=== PATIENT | female | born 1945 | race Caucasian/White ===

== ENCOUNTER → 2022-07-24 | Outpatient (REF) | payer MEDICARE, MEDICAID, SELFPAY ==
[2022-07-24 10:03] LABS: Absolute Lymphocyte Count 2.39 X10^3/uL (0.83-4.51); Absolute Neutrophil Count 2.3 X10^3/uL (2.0-7.7); Basophil# 0.06 X10^3/uL; Eosinophil# 0.53 X10^3/uL; Eosinophils% 9.2 % (0-5); Hematocrit 41.3 % (37-47); Hemoglobin 13.1 g/dL (12.0-15.0); Lymphocyte # 2.39 X10^3/ul (0.83-4.51); Lymphocyte % 41.6 % (19-41); Mean Corp Hgb Conc 31.7 g/dL (32-36); Mean Corpuscular Hgb 31.4 pg (27.0-32.0); Mean Platelet Vol. 11.5 fl (6.2-12.0); Monocyte# 0.48 X10^3/uL; Monocyte% 8.4 % (0-10); NRBC Flagged by Analyzer 0 % (0-5); Neutrophil # 2.25 X10^3/uL (2.7-7.7); Neutrophil % 39.3 % (47-70); Platelet Count 201 K/mm3 (150-450); RBC Distribution Width CV 14.8 % (11.6-14.6); RBC Distribution Width SD 54.2 fl (35.1-43.9); Red Blood Count 4.17 M/mm3 (4.2-5.4); White Blood Count 5.7 K/mm3 (4.4-11.0)
[2022-07-24 10:26] LABS: Anion Gap 5 (5-15); BUN 25 mg/dL (7-18); BUN/Creat Ratio 24.3 RATIO (10-20); Calcium,Total 8.5 mg/dL (8.5-10.1); Chloride 112 mmol/L (98-107); Creatinine, Serum 1.03 mg/dL (0.55-1.02); EST Glomerular Filtration Rate 55 mL/min (>60); Est Glom Filt Rate - Afr Amer 66 mL/min (>60); Glucose 77 mg/dL (74-106); Potassium 4.3 mmol/L (3.5-5.1); Sodium Level 142 mmol/L (136-145); Thyroid Stim Hormone (TSH) 2.63 uIU/mL (0.358-3.74)
== END ==
LOC: OLS.ACH 05:00
PROVIDERS: Referring Provider Family Medicine; Visit Provider Family Medicine
DX: I10 Essential (primary) hypertension (principal); E03.9 Hypothyroidism, unspecified
CPT/HCPCS: 36415; 80048; 84443; 85025

== ENCOUNTER → 2022-07-29 | Outpatient (REF) | payer MEDICARE, MEDICAID, SELFPAY ==
[2022-07-29 09:41] LABS: Valproic Acid (Depakene) Level 38 ug/mL (50-100)
== END ==
LOC: OLS.ACH 05:00
PROVIDERS: Visit Provider Family Medicine
DX: F29 Unspecified psychosis not due to a substance or known physiological condition (principal); F41.9 Anxiety disorder, unspecified; G31.09 Other frontotemporal neurocognitive disorder
CPT/HCPCS: 36415; 80164

== ENCOUNTER → 2022-08-22 | Outpatient (REF) | payer MEDICARE, MEDICAID, SELFPAY ==
[2022-08-22 10:23] LABS: ALB/GLOB Ratio 0.7 RATIO (0.9-2.4); AST(SGOT) 19 U/L (15-37); Alanine Aminotransfer ALT/SGPT 28 U/L (13-56); Albumin, Serum 3.1 g/dL (3.2-5.0); Alkaline Phosphatase 75 U/L (45-117); Anion Gap 5 (5-15); BUN 28 mg/dL (7-18); BUN/Creat Ratio 28.4 RATIO (10-20); Calcium,Total 9.1 mg/dL (8.5-10.1); Chloride 105 mmol/L (98-107); Cholesterol 189 mg/dL (200); Creatinine, Serum 0.98 mg/dL (0.55-1.02); EST Glomerular Filtration Rate 58 mL/min (>60); Est Glom Filt Rate - Afr Amer 70 mL/min (>60); Globulin 4.5 g/dL (2.2-4.2); Glucose 83 mg/dL (74-106); High Density Lipoprotein 62 mg/dL; Potassium 4.1 mmol/L (3.5-5.1); Protein, Total 7.6 g/dL (6.4-8.2); Sodium Level 140 mmol/L (136-145); Triglycerides 121 mg/dL; Very Low Density Lipoprotein 24 mg/dL (5-40)
== END ==
LOC: OLS.ACH 08:35
PROVIDERS: Visit Provider Family Medicine
DX: I10 Essential (primary) hypertension (principal); E03.9 Hypothyroidism, unspecified
CPT/HCPCS: 36415; 80053; 80061; 84443

== ENCOUNTER → 2022-08-23 | Outpatient (REF) | payer SELFPAY ==
[2022-08-23 08:56] LABS: Absolute Lymphocyte Count 2.14 X10^3/uL (0.83-4.51); Absolute Neutrophil Count 3.5 X10^3/uL (2.0-7.7); Basophil# 0.04 X10^3/uL; Basophil% 0.6 % (0-1); Eosinophil# 0.27 X10^3/uL; Eosinophils% 4.1 % (0-5); Hematocrit 37.1 % (37-47); Hemoglobin 11.7 g/dL (12.0-15.0); Lymphocyte # 2.14 X10^3/ul (0.83-4.51); Lymphocyte % 32.5 % (19-41); Mean Corp Hgb Conc 31.5 g/dL (32-36); Mean Corpuscular Hgb 30.5 pg (27.0-32.0); Mean Corpuscular Volume 96.6 fL (81-99); Mean Platelet Vol. 11.5 fl (6.2-12.0); Monocyte% 9.1 % (0-10); NRBC Flagged by Analyzer 0 % (0-5); Neutrophil # 3.51 X10^3/uL (2.7-7.7); Neutrophil % 53.2 % (47-70); Platelet Count 226 K/mm3 (150-450); RBC Distribution Width CV 14.4 % (11.6-14.6); RBC Distribution Width SD 50.7 fl (35.1-43.9); Red Blood Count 3.84 M/mm3 (4.2-5.4); White Blood Count 6.6 K/mm3 (4.4-11.0)
== END ==
LOC: OLS.ACH 05:00
PROVIDERS: Visit Provider Family Medicine
DX: I10 Essential (primary) hypertension (principal); E03.9 Hypothyroidism, unspecified

== ENCOUNTER → 2022-10-21 | Outpatient (REF) | payer MEDICARE, MEDICAID, SELFPAY ==
[2022-10-21 11:40] LABS: Valproic Acid (Depakene) Level 31 ug/mL (50-100)
== END ==
LOC: OLS.ACH 05:00
PROVIDERS: Visit Provider Internal Medicine
DX: G31.09 Other frontotemporal neurocognitive disorder (principal); F02.818 Dementia in other diseases classified elsewhere, unspecified severity, with other behavioral disturbance
CPT/HCPCS: 36415; 80164

== ENCOUNTER → 2022-11-14 | Outpatient (REF) | payer MEDICARE, MEDICAID, SELFPAY ==
[2022-11-14 09:50] LABS: Absolute Lymphocyte Count 2.82 X10^3/uL (0.83-4.51); Absolute Neutrophil Count 6.6 X10^3/uL (2.0-7.7); Basophil# 0.03 X10^3/uL; Basophil% 0.3 % (0-1); Eosinophil# 0.38 X10^3/uL; Eosinophils% 3.6 % (0-5); Hematocrit 40.9 % (37-47); Hemoglobin 12.7 g/dL (12.0-15.0); Lymphocyte # 2.82 X10^3/ul (0.83-4.51); Lymphocyte % 26.4 % (19-41); Mean Corp Hgb Conc 31.1 g/dL (32-36); Mean Corpuscular Hgb 30.9 pg (27.0-32.0); Mean Corpuscular Volume 99.5 fL (81-99); Mean Platelet Vol. 11.6 fl (6.2-12.0); Monocyte# 0.81 X10^3/uL; Monocyte% 7.6 % (0-10); NRBC Flagged by Analyzer 0 % (0-5); Neutrophil # 6.62 X10^3/uL (2.7-7.7); Neutrophil % 61.7 % (47-70); Platelet Count 209 K/mm3 (150-450); RBC Distribution Width CV 14.3 % (11.6-14.6); RBC Distribution Width SD 52.2 fl (35.1-43.9); Red Blood Count 4.11 M/mm3 (4.2-5.4); White Blood Count 10.7 K/mm3 (4.4-11.0)
[2022-11-14 10:13] LABS: ALB/GLOB Ratio 0.6 RATIO (0.9-2.4); AST(SGOT) 21 U/L (15-37); Alanine Aminotransfer ALT/SGPT 22 U/L (13-56); Albumin, Serum 2.5 g/dL (3.2-5.0); Alkaline Phosphatase 70 U/L (45-117); Anion Gap 5 (5-15); BUN 21 mg/dL (7-18); BUN/Creat Ratio 25.1 RATIO (10-20); Calcium,Total 8.5 mg/dL (8.5-10.1); Chloride 111 mmol/L (98-107); Cholesterol 179 mg/dL (200); Creatinine, Serum 0.84 mg/dL (0.55-1.02); EST Glomerular Filtration Rate 70 mL/min (>60); Est Glom Filt Rate - Afr Amer 84 mL/min (>60); Globulin 3.9 g/dL (2.2-4.2); Glucose 77 mg/dL (74-106); High Density Lipoprotein 48 mg/dL; Potassium 4.2 mmol/L (3.5-5.1); Protein, Total 6.4 g/dL (6.4-8.2); Sodium Level 145 mmol/L (136-145); Thyroid Stim Hormone (TSH) 3.57 uIU/mL (0.358-3.74); Triglycerides 124 mg/dL; Very Low Density Lipoprotein 25 mg/dL (5-40)
== END ==
LOC: OLS.ACH 05:00
PROVIDERS: Visit Provider Internal Medicine
DX: I10 Essential (primary) hypertension (principal); E03.9 Hypothyroidism, unspecified; E78.00 Pure hypercholesterolemia, unspecified
CPT/HCPCS: 36415; 80053; 80061; 84443; 85025

== ENCOUNTER → 2023-01-13 | Outpatient (REF) | payer MEDICARE, MEDICAID, SELFPAY ==
[2023-01-13 09:13] LABS: Valproic Acid (Depakene) Level 38 ug/mL (50-100)
== END ==
LOC: OLS.ACH 05:00
PROVIDERS: Visit Provider Internal Medicine
DX: F29 Unspecified psychosis not due to a substance or known physiological condition (principal); G31.09 Other frontotemporal neurocognitive disorder
CPT/HCPCS: 36415; 80164

== ENCOUNTER → 2023-02-06 | Outpatient (REF) | payer MEDICARE, MEDICAID, SELFPAY ==
[2023-02-06 08:25] LABS: Absolute Lymphocyte Count 2.99 X10^3/uL (0.83-4.51); Absolute Neutrophil Count 2.9 X10^3/uL (2.0-7.7); Basophil# 0.02 X10^3/uL; Basophil% 0.3 % (0-1); Eosinophils% 4.4 % (0-5); Hemoglobin 13.5 g/dL (12.0-15.0); Lymphocyte # 2.99 X10^3/ul (0.83-4.51); Mean Corp Hgb Conc 30.7 g/dL (32-36); Mean Corpuscular Hgb 30.7 pg (27.0-32.0); Mean Platelet Vol. 11.6 fl (6.2-12.0); Monocyte# 0.52 X10^3/uL; Monocyte% 7.6 % (0-10); NRBC Flagged by Analyzer 0 % (0-5); Neutrophil # 2.94 X10^3/uL (2.7-7.7); Neutrophil % 43.3 % (47-70); Platelet Count 204 K/mm3 (150-450); RBC Distribution Width CV 13.9 % (11.6-14.6); RBC Distribution Width SD 51.3 fl (35.1-43.9); White Blood Count 6.8 K/mm3 (4.4-11.0)
[2023-02-06 08:48] LABS: ALB/GLOB Ratio 0.6 RATIO (0.9-2.4); AST(SGOT) 15 U/L (15-37); Alanine Aminotransfer ALT/SGPT 20 U/L (13-56); Albumin, Serum 2.4 g/dL (3.2-5.0); Alkaline Phosphatase 63 U/L (45-117); Anion Gap 5 (5-15); BUN 21 mg/dL (7-18); Calcium,Total 8.2 mg/dL (8.5-10.1); Chloride 110 mmol/L (98-107); Cholesterol 196 mg/dL (200); Creatinine, Serum 0.84 mg/dL (0.55-1.02); EST Glomerular Filtration Rate 69 mL/min (>60); Est Glom Filt Rate - Afr Amer 84 mL/min (>60); Globulin 3.8 g/dL (2.2-4.2); Glucose 90 mg/dL (74-106); High Density Lipoprotein 51 mg/dL; Potassium 4.4 mmol/L (3.5-5.1); Protein, Total 6.2 g/dL (6.4-8.2); Sodium Level 143 mmol/L (136-145); Thyroid Stim Hormone (TSH) 2.21 uIU/mL (0.358-3.74); Triglycerides 157 mg/dL; Very Low Density Lipoprotein 31 mg/dL (5-40)
== END ==
LOC: OLS.ACH 05:00
PROVIDERS: Visit Provider Internal Medicine
DX: I10 Essential (primary) hypertension (principal); E03.9 Hypothyroidism, unspecified; E78.00 Pure hypercholesterolemia, unspecified
CPT/HCPCS: 36415; 80053; 80061; 84443; 85025

== ENCOUNTER → 2023-04-07 | Outpatient (REF) | payer MEDICARE, MEDICAID, SELFPAY ==
[2023-04-07 09:32] LABS: Valproic Acid (Depakene) Level 29 ug/mL (50-100)
== END ==
LOC: OLS.ACH 05:00
PROVIDERS: Visit Provider Internal Medicine
DX: F29 Unspecified psychosis not due to a substance or known physiological condition (principal)
CPT/HCPCS: 36415; 80164

== ENCOUNTER → 2023-05-01 | Outpatient (REF) | payer MEDICARE, MEDICAID, SELFPAY ==
[2023-05-01 09:36] LABS: Absolute Lymphocyte Count 3.15 X10^3/uL (0.83-4.51); Absolute Neutrophil Count 3.1 X10^3/uL (2.0-7.7); Basophil# 0.04 X10^3/uL; Basophil% 0.6 % (0-1); Eosinophil# 0.26 X10^3/uL; Eosinophils% 3.6 % (0-5); Hematocrit 48.3 % (37-47); Hemoglobin 15.1 g/dL (12.0-15.0); Lymphocyte # 3.15 X10^3/ul (0.83-4.51); Lymphocyte % 43.3 % (19-41); Mean Corp Hgb Conc 31.3 g/dL (32-36); Mean Corpuscular Hgb 31.3 pg (27.0-32.0); Mean Corpuscular Volume 100.2 fL (81-99); Mean Platelet Vol. 12.2 fl (6.2-12.0); Monocyte# 0.69 X10^3/uL; Monocyte% 9.5 % (0-10); NRBC Flagged by Analyzer 0 % (0-5); Neutrophil # 3.08 X10^3/uL (2.7-7.7); Neutrophil % 42.3 % (47-70); Platelet Count 181 K/mm3 (150-450); RBC Distribution Width CV 13.4 % (11.6-14.6); RBC Distribution Width SD 50.1 fl (35.1-43.9); Red Blood Count 4.82 M/mm3 (4.2-5.4); White Blood Count 7.3 K/mm3 (4.4-11.0)
[2023-05-01 09:58] LABS: ALB/GLOB Ratio 0.7 RATIO (0.9-2.4); AST(SGOT) 21 U/L (15-37); Alanine Aminotransfer ALT/SGPT 27 U/L (13-56); Albumin, Serum 2.9 g/dL (3.2-5.0); Alkaline Phosphatase 71 U/L (45-117); Anion Gap 5 (5-15); BUN 33 mg/dL (7-18); BUN/Creat Ratio 29.5 RATIO (10-20); Chloride 108 mmol/L (98-107); Cholesterol 205 mg/dL (200); Creatinine, Serum 1.12 mg/dL (0.55-1.02); EST Glomerular Filtration Rate 50 mL/min (>60); Est Glom Filt Rate - Afr Amer 60 mL/min (>60); Globulin 4.3 g/dL (2.2-4.2); Glucose 90 mg/dL (74-106); High Density Lipoprotein 53 mg/dL; Potassium 4.5 mmol/L (3.5-5.1); Protein, Total 7.2 g/dL (6.4-8.2); Sodium Level 142 mmol/L (136-145); Thyroid Stim Hormone (TSH) 2.38 uIU/mL (0.358-3.74); Triglycerides 160 mg/dL; Very Low Density Lipoprotein 32 mg/dL (5-40)
== END ==
LOC: OLS.ACH 04:00
PROVIDERS: Referring Provider Internal Medicine; Visit Provider Internal Medicine
DX: I10 Essential (primary) hypertension (principal); E03.9 Hypothyroidism, unspecified; E78.00 Pure hypercholesterolemia, unspecified
CPT/HCPCS: 36415; 80053; 80061; 84443; 85025

== ENCOUNTER → 2023-06-30 | Outpatient (REF) | payer MEDICARE, MEDICAID, SELFPAY ==
[2023-06-30 09:57] LABS: Valproic Acid (Depakene) Level 33 ug/mL (50-100)
== END ==
LOC: OLS.ACH 04:00
PROVIDERS: Referring Provider Internal Medicine; Visit Provider Internal Medicine
DX: F29 Unspecified psychosis not due to a substance or known physiological condition (principal); Z79.899 Other long term (current) drug therapy
CPT/HCPCS: 36415; 80164

== ENCOUNTER → 2023-07-24 | Outpatient (REF) | payer MEDICARE, MEDICAID, SELFPAY ==
[2023-07-24 09:51] LABS: Absolute Lymphocyte Count 3.02 X10^3/uL (0.83-4.51); Absolute Neutrophil Count 3.1 X10^3/uL (2.0-7.7); Basophil# 0.04 X10^3/uL; Basophil% 0.6 % (0-1); Eosinophils% 4.2 % (0-5); Hematocrit 47.3 % (37-47); Hemoglobin 14.8 g/dL (12.0-15.0); Lymphocyte # 3.02 X10^3/ul (0.83-4.51); Lymphocyte % 42.6 % (19-41); Mean Corp Hgb Conc 31.3 g/dL (32-36); Mean Corpuscular Hgb 31.4 pg (27.0-32.0); Mean Corpuscular Volume 100.2 fL (81-99); Monocyte% 8.5 % (0-10); NRBC Flagged by Analyzer 0 % (0-5); Neutrophil % 43.7 % (47-70); Platelet Count 191 K/mm3 (150-450); RBC Distribution Width CV 13.7 % (11.6-14.6); RBC Distribution Width SD 50.6 fl (35.1-43.9); Red Blood Count 4.72 M/mm3 (4.2-5.4); White Blood Count 7.1 K/mm3 (4.4-11.0)
[2023-07-24 10:11] LABS: ALB/GLOB Ratio 0.6 RATIO (0.9-2.4); AST(SGOT) 19 U/L (15-37); Alanine Aminotransfer ALT/SGPT 18 U/L (13-56); Albumin, Serum 2.5 g/dL (3.2-5.0); Alkaline Phosphatase 57 U/L (45-117); Anion Gap 2 (5-15); BUN 28 mg/dL (7-18); BUN/Creat Ratio 32.6 RATIO (10-20); Calcium,Total 8.3 mg/dL (8.5-10.1); Chloride 110 mmol/L (98-107); Cholesterol 189 mg/dL (200); Creatinine, Serum 0.86 mg/dL (0.55-1.02); EST Glomerular Filtration Rate 67 mL/min (>60); Est Glom Filt Rate - Afr Amer 82 mL/min (>60); Globulin 3.9 g/dL (2.2-4.2); Glucose 85 mg/dL (74-106); High Density Lipoprotein 45 mg/dL; Potassium 4.2 mmol/L (3.5-5.1); Protein, Total 6.4 g/dL (6.4-8.2); Sodium Level 141 mmol/L (136-145); Thyroid Stim Hormone (TSH) 1.79 uIU/mL (0.358-3.74); Triglycerides 137 mg/dL; Very Low Density Lipoprotein 27 mg/dL (5-40)
== END ==
LOC: OLS.ACH 05:00
PROVIDERS: Visit Provider Internal Medicine
DX: I10 Essential (primary) hypertension (principal); E03.9 Hypothyroidism, unspecified; E78.00 Pure hypercholesterolemia, unspecified
CPT/HCPCS: 36415; 80053; 80061; 84443; 85025

== ENCOUNTER → 2023-09-01 | Outpatient (REF) | payer MEDICARE, MEDICAID, SELFPAY ==
[2023-09-01 08:35] LABS: Absolute Lymphocyte Count 4.12 X10^3/uL (0.83-4.51); Absolute Neutrophil Count 4.2 X10^3/uL (2.0-7.7); Basophil# 0.08 X10^3/uL; Basophil% 0.8 % (0-1); Eosinophil# 0.47 X10^3/uL; Eosinophils% 4.8 % (0-5); Hematocrit 50.4 % (37-47); Lymphocyte # 4.12 X10^3/ul (0.83-4.51); Lymphocyte % 42.4 % (19-41); Mean Corp Hgb Conc 31.7 g/dL (32-36); Mean Corpuscular Volume 100.8 fL (81-99); Mean Platelet Vol. 11.9 fl (6.2-12.0); Monocyte# 0.77 X10^3/uL; Monocyte% 7.9 % (0-10); NRBC Flagged by Analyzer 0 % (0-5); Neutrophil # 4.22 X10^3/uL (2.7-7.7); Neutrophil % 43.6 % (47-70); Platelet Count 221 K/mm3 (150-450); RBC Distribution Width SD 52.3 fl (35.1-43.9); White Blood Count 9.7 K/mm3 (4.4-11.0)
[2023-09-01 09:22] LABS: ALB/GLOB Ratio 0.7 RATIO (0.9-2.4); AST(SGOT) 24 U/L (15-37); Alanine Aminotransfer ALT/SGPT 21 U/L (13-56); Albumin, Serum 2.7 g/dL (3.2-5.0); Alkaline Phosphatase 67 U/L (45-117); Anion Gap 6 (5-15); BUN 29 mg/dL (7-18); BUN/Creat Ratio 30.2 RATIO (10-20); Calcium,Total 8.3 mg/dL (8.5-10.1); Chloride 110 mmol/L (98-107); Creatinine, Serum 0.96 mg/dL (0.55-1.02); EST Glomerular Filtration Rate 59 mL/min (>60); Est Glom Filt Rate - Afr Amer 72 mL/min (>60); Glucose 79 mg/dL (74-106); Potassium 4.1 mmol/L (3.5-5.1); Protein, Total 6.7 g/dL (6.4-8.2); Sodium Level 142 mmol/L (136-145)
== END ==
LOC: OLS.ACH 04:00
PROVIDERS: Visit Provider Internal Medicine
DX: R41.82 Altered mental status, unspecified (principal)
CPT/HCPCS: 36415; 80053; 85025

== ENCOUNTER → 2023-09-29 | Outpatient (REF) | payer MEDICARE, MEDICAID, SELFPAY ==
[2023-09-29 10:25] LABS: Vitamin D,25 Hydroxy 86.5 ng/mL
[2023-09-29 10:49] LABS: Valproic Acid (Depakene) Level 27 ug/mL (50-100)
== END ==
LOC: OLS.ACH 05:00
PROVIDERS: Visit Provider Internal Medicine
DX: E55.9 Vitamin D deficiency, unspecified (principal); F29 Unspecified psychosis not due to a substance or known physiological condition
CPT/HCPCS: 36415; 80164; 82306

== ENCOUNTER → 2023-10-16 | Outpatient (REF) | payer MEDICARE, MEDICAID, SELFPAY ==
[2023-10-16 08:55] LABS: Absolute Neutrophil Count 7.2 X10^3/uL (2.0-7.7); Basophil# 0.06 X10^3/uL; Basophil% 0.6 % (0-1); Eosinophil# 0.31 X10^3/uL; Eosinophils% 2.9 % (0-5); Hematocrit 47.5 % (37-47); Hemoglobin 15.1 g/dL (12.0-15.0); Lymphocyte % 22.2 % (19-41); Mean Corp Hgb Conc 31.8 g/dL (32-36); Mean Corpuscular Hgb 31.7 pg (27.0-32.0); Mean Corpuscular Volume 99.6 fL (81-99); Mean Platelet Vol. 11.8 fl (6.2-12.0); Monocyte% 7.4 % (0-10); NRBC Flagged by Analyzer 0 % (0-5); Neutrophil % 66.6 % (47-70); Platelet Count 185 K/mm3 (150-450); RBC Distribution Width CV 13.4 % (11.6-14.6); RBC Distribution Width SD 49.4 fl (35.1-43.9); Red Blood Count 4.77 M/mm3 (4.2-5.4); White Blood Count 10.8 K/mm3 (4.4-11.0)
[2023-10-16 09:28] LABS: ALB/GLOB Ratio 0.7 RATIO (0.9-2.4); AST(SGOT) 15 U/L (15-37); Alanine Aminotransfer ALT/SGPT 20 U/L (13-56); Albumin, Serum 2.7 g/dL (3.2-5.0); Alkaline Phosphatase 67 U/L (45-117); Anion Gap 2 (5-15); BUN 23 mg/dL (7-18); BUN/Creat Ratio 27.9 RATIO (10-20); Calcium,Total 8.9 mg/dL (8.5-10.1); Chloride 109 mmol/L (98-107); Cholesterol 204 mg/dL (200); Creatinine, Serum 0.82 mg/dL (0.55-1.02); EST Glomerular Filtration Rate 71 mL/min (>60); Est Glom Filt Rate - Afr Amer 86 mL/min (>60); Globulin 3.7 g/dL (2.2-4.2); Glucose 84 mg/dL (74-106); High Density Lipoprotein 48 mg/dL; Potassium 3.9 mmol/L (3.5-5.1); Protein, Total 6.4 g/dL (6.4-8.2); Sodium Level 140 mmol/L (136-145); Thyroid Stim Hormone (TSH) 2.62 uIU/mL (0.358-3.74); Triglycerides 144 mg/dL; Very Low Density Lipoprotein 29 mg/dL (5-40)
== END ==
LOC: OLS.ACH 05:00
PROVIDERS: Visit Provider Internal Medicine
DX: I10 Essential (primary) hypertension (principal); E03.9 Hypothyroidism, unspecified; E78.00 Pure hypercholesterolemia, unspecified
CPT/HCPCS: 36415; 80053; 80061; 84443; 85025

== ENCOUNTER → 2023-12-22 | Outpatient (REF) | payer MEDICARE, MEDICAID, SELFPAY ==
[2023-12-22 09:51] LABS: Valproic Acid (Depakene) Level 18 ug/mL (50-100)
[2023-12-22 09:55] LABS: Vitamin D,25 Hydroxy 78.4 ng/mL
== END ==
LOC: OLS.ACH 05:00
PROVIDERS: Visit Provider Internal Medicine
DX: F29 Unspecified psychosis not due to a substance or known physiological condition (principal); E55.9 Vitamin D deficiency, unspecified
CPT/HCPCS: 36415; 80164; 82306

== ENCOUNTER → 2024-01-08 | Outpatient (REF) | payer MEDICARE, MEDICAID, SELFPAY ==
[2024-01-08 08:52] LABS: Absolute Lymphocyte Count 2.86 X10^3/uL (0.83-4.51); Absolute Neutrophil Count 3.3 X10^3/uL (2.0-7.7); Basophil# 0.05 X10^3/uL; Basophil% 0.7 % (0-1); Eosinophil# 0.22 X10^3/uL; Eosinophils% 3.1 % (0-5); Hematocrit 41.7 % (37-47); Hemoglobin 13.5 g/dL (12.0-15.0); Lymphocyte # 2.86 X10^3/ul (0.83-4.51); Lymphocyte % 40.7 % (19-41); Mean Corp Hgb Conc 32.4 g/dL (32-36); Mean Corpuscular Hgb 32.1 pg (27.0-32.0); Mean Platelet Vol. 11.9 fl (6.2-12.0); Monocyte# 0.55 X10^3/uL; Monocyte% 7.8 % (0-10); NRBC Flagged by Analyzer 0 % (0-5); Neutrophil # 3.32 X10^3/uL (2.7-7.7); Neutrophil % 47.3 % (47-70); Platelet Count 199 K/mm3 (150-450); RBC Distribution Width CV 13.6 % (11.6-14.6); RBC Distribution Width SD 49.7 fl (35.1-43.9); Red Blood Count 4.21 M/mm3 (4.2-5.4)
[2024-01-08 09:19] LABS: ALB/GLOB Ratio 0.7 RATIO (0.9-2.4); AST(SGOT) 16 U/L (15-37); Alanine Aminotransfer ALT/SGPT 18 U/L (13-56); Albumin, Serum 2.4 g/dL (3.2-5.0); Alkaline Phosphatase 62 U/L (45-117); Anion Gap 3 (5-15); BUN 22 mg/dL (7-18); BUN/Creat Ratio 29.8 RATIO (10-20); Calcium,Total 8.4 mg/dL (8.5-10.1); Chloride 112 mmol/L (98-107); Cholesterol 176 mg/dL (200); Creatinine, Serum 0.74 mg/dL (0.55-1.02); EST Glomerular Filtration Rate 80 mL/min (>60); Est Glom Filt Rate - Afr Amer 97 mL/min (>60); Globulin 3.4 g/dL (2.2-4.2); Glucose 85 mg/dL (74-106); High Density Lipoprotein 44 mg/dL; Potassium 3.9 mmol/L (3.5-5.1); Protein, Total 5.8 g/dL (6.4-8.2); Sodium Level 144 mmol/L (136-145); Thyroid Stim Hormone (TSH) 1.86 uIU/mL (0.358-3.74); Triglycerides 137 mg/dL; Very Low Density Lipoprotein 27 mg/dL (5-40)
== END ==
LOC: OLS.ACH 05:00
PROVIDERS: Visit Provider Internal Medicine
DX: I10 Essential (primary) hypertension (principal); E03.9 Hypothyroidism, unspecified; E78.00 Pure hypercholesterolemia, unspecified
CPT/HCPCS: 36415; 80053; 80061; 84443; 85025

== ENCOUNTER → 2024-03-15 05:00 | Outpatient (REF) | payer MEDICARE, MEDICAID, SELFPAY ==
[2024-03-15 08:49] LABS: Vitamin D,25 Hydroxy 68.7 ng/mL
[2024-03-15 08:54] LABS: Valproic Acid (Depakene) Level 22 ug/mL (50-100)
== END ==
LOC: OLS.ACH 05:00
PROVIDERS: Visit Provider Internal Medicine
DX: E55.9 Vitamin D deficiency, unspecified (principal); F29 Unspecified psychosis not due to a substance or known physiological condition
CPT/HCPCS: 36415; 80164; 82306

== ENCOUNTER → 2024-04-01 05:00 | Outpatient (REF) | payer MEDICARE, MEDICAID, SELFPAY ==
[2024-04-01 08:27] LABS: Absolute Lymphocyte Count 3.01 X10^3/uL (0.83-4.51); Absolute Neutrophil Count 3.6 X10^3/uL (2.0-7.7); Basophil# 0.06 X10^3/uL; Basophil% 0.8 % (0-1); Eosinophil# 0.36 X10^3/uL; Eosinophils% 4.7 % (0-5); Hematocrit 45.8 % (37-47); Hemoglobin 14.7 g/dL (12.0-15.0); Lymphocyte # 3.01 X10^3/ul (0.83-4.51); Lymphocyte % 39.2 % (19-41); Mean Corp Hgb Conc 32.1 g/dL (32-36); Mean Corpuscular Hgb 31.4 pg (27.0-32.0); Mean Corpuscular Volume 97.9 fL (81-99); Mean Platelet Vol. 11.7 fl (6.2-12.0); Monocyte# 0.65 X10^3/uL; Monocyte% 8.5 % (0-10); NRBC Flagged by Analyzer 0 % (0-5); Neutrophil # 3.55 X10^3/uL (2.7-7.7); Neutrophil % 46.3 % (47-70); Platelet Count 200 K/mm3 (150-450); RBC Distribution Width CV 13.4 % (11.6-14.6); RBC Distribution Width SD 48.6 fl (35.1-43.9); Red Blood Count 4.68 M/mm3 (4.2-5.4); White Blood Count 7.7 K/mm3 (4.4-11.0)
[2024-04-01 08:51] LABS: ALB/GLOB Ratio 0.7 RATIO (0.9-2.4); AST(SGOT) 22 U/L (15-37); Alanine Aminotransfer ALT/SGPT 24 U/L (13-56); Albumin, Serum 2.6 g/dL (3.2-5.0); Alkaline Phosphatase 75 U/L (45-117); Anion Gap 4 (5-15); BUN 25 mg/dL (7-18); Calcium,Total 8.6 mg/dL (8.5-10.1); Chloride 109 mmol/L (98-107); Cholesterol 205 mg/dL (200); Creatinine, Serum 0.86 mg/dL (0.55-1.02); EST Glomerular Filtration Rate 67 mL/min (>60); Est Glom Filt Rate - Afr Amer 81 mL/min (>60); Globulin 3.8 g/dL (2.2-4.2); Glucose 82 mg/dL (74-106); High Density Lipoprotein 45 mg/dL; Potassium 4.1 mmol/L (3.5-5.1); Protein, Total 6.4 g/dL (6.4-8.2); Sodium Level 142 mmol/L (136-145); Thyroid Stim Hormone (TSH) 2.08 uIU/mL (0.358-3.74); Triglycerides 183 mg/dL; Very Low Density Lipoprotein 37 mg/dL (5-40)
== END ==
LOC: OLS.ACH 05:00
PROVIDERS: Visit Provider Internal Medicine
DX: I10 Essential (primary) hypertension (principal); E03.9 Hypothyroidism, unspecified; E78.00 Pure hypercholesterolemia, unspecified
CPT/HCPCS: 36415; 80053; 80061; 84443; 85025

== ENCOUNTER → 2024-06-07 | Outpatient (REF) | payer MEDICARE, MEDICAID, SELFPAY ==
[2024-06-07 09:13] LABS: Vitamin D,25 Hydroxy 65.6 ng/mL
[2024-06-07 09:17] LABS: Valproic Acid (Depakene) Level 16 ug/mL (50-100)
== END ==
LOC: OLS.ACH 05:00
PROVIDERS: Visit Provider Internal Medicine
DX: F29 Unspecified psychosis not due to a substance or known physiological condition (principal); E55.9 Vitamin D deficiency, unspecified
CPT/HCPCS: 36415; 80164; 82306

== ENCOUNTER → 2024-06-24 | Outpatient (REF) | payer SELFPAY | LOC: OLS.ACH 05:00 | PROVIDERS: Visit Provider Internal Medicine | DX: I10 Essential (primary) hypertension (principal); E03.9 Hypothyroidism, unspecified; E78.00 Pure hypercholesterolemia, unspecified ==

== ENCOUNTER → 2024-06-25 | Outpatient (REF) | payer MEDICARE, MEDICAID, SELFPAY ==
[2024-06-25 08:53] LABS: Absolute Lymphocyte Count 3.04 X10^3/uL (0.83-4.51); Basophil# 0.04 X10^3/uL; Basophil% 0.6 % (0-1); Eosinophil# 0.31 X10^3/uL; Eosinophils% 4.4 % (0-5); Hematocrit 44.5 % (37-47); Lymphocyte # 3.04 X10^3/ul (0.83-4.51); Lymphocyte % 43.3 % (19-41); Mean Corp Hgb Conc 31.5 g/dL (32-36); Mean Corpuscular Hgb 31.5 pg (27.0-32.0); Mean Platelet Vol. 11.5 fl (6.2-12.0); Monocyte# 0.58 X10^3/uL; Monocyte% 8.3 % (0-10); NRBC Flagged by Analyzer 0 % (0-5); Neutrophil # 3.03 X10^3/uL (2.7-7.7); Neutrophil % 43.1 % (47-70); Platelet Count 203 K/mm3 (150-450); RBC Distribution Width CV 13.1 % (11.6-14.6); RBC Distribution Width SD 48.5 fl (35.1-43.9); Red Blood Count 4.45 M/mm3 (4.2-5.4)
[2024-06-25 09:16] LABS: ALB/GLOB Ratio 0.7 RATIO (0.9-2.4); AST(SGOT) 17 U/L (15-37); Alanine Aminotransfer ALT/SGPT 17 U/L (13-56); Albumin, Serum 2.7 g/dL (3.2-5.0); Alkaline Phosphatase 73 U/L (45-117); Anion Gap 4 (5-15); BUN 16 mg/dL (7-18); BUN/Creat Ratio 21.4 RATIO (10-20); Calcium,Total 8.8 mg/dL (8.5-10.1); Chloride 109 mmol/L (98-107); Cholesterol 192 mg/dL (200); Creatinine, Serum 0.75 mg/dL (0.55-1.02); EST Glomerular Filtration Rate 79 mL/min (>60); Est Glom Filt Rate - Afr Amer 96 mL/min (>60); Globulin 3.7 g/dL (2.2-4.2); Glucose 82 mg/dL (74-106); High Density Lipoprotein 47 mg/dL; Protein, Total 6.4 g/dL (6.4-8.2); Sodium Level 143 mmol/L (136-145); Triglycerides 188 mg/dL; Very Low Density Lipoprotein 38 mg/dL (5-40)
== END ==
LOC: OLS.ACH 05:00
PROVIDERS: Visit Provider Internal Medicine
DX: I10 Essential (primary) hypertension (principal); E03.9 Hypothyroidism, unspecified; E78.00 Pure hypercholesterolemia, unspecified
CPT/HCPCS: 36415; 80053; 80061; 84443; 85025

== ENCOUNTER → 2024-08-09 | Outpatient (REF) | payer MEDICARE, MEDICAID, SELFPAY | LOC: OLS.ACH 05:00 | PROVIDERS: Visit Provider Internal Medicine | DX: E03.9 Hypothyroidism, unspecified (principal) | CPT/HCPCS: 36415; 84443 ==

== ENCOUNTER → 2024-08-30 | Outpatient (REF) | payer MEDICARE, MEDICAID, SELFPAY ==
[2024-08-30 09:11] LABS: Valproic Acid (Depakene) Level 26 ug/mL (50-100); Vitamin D,25 Hydroxy 69.9 ng/mL
== END ==
LOC: OLS.ACH 05:00
PROVIDERS: Visit Provider Internal Medicine
DX: F29 Unspecified psychosis not due to a substance or known physiological condition (principal); E55.9 Vitamin D deficiency, unspecified
CPT/HCPCS: 36415; 80164; 82306

== ENCOUNTER → 2024-09-16 04:00 | Outpatient (REF) | payer MEDICARE, MEDICAID, SELFPAY ==
[2024-09-16 09:10] LABS: Absolute Lymphocyte Count 3.46 X10^3/uL (0.83-4.51); Absolute Neutrophil Count 3.3 X10^3/uL (2.0-7.7); Basophil# 0.08 X10^3/uL; Eosinophil# 0.36 X10^3/uL; Eosinophils% 4.6 % (0-5); Hematocrit 46.4 % (37-47); Lymphocyte # 3.46 X10^3/ul (0.83-4.51); Lymphocyte % 44.1 % (19-41); Mean Corp Hgb Conc 32.3 g/dL (32-36); Mean Corpuscular Hgb 32.1 pg (27.0-32.0); Mean Corpuscular Volume 99.1 fL (81-99); Mean Platelet Vol. 11.6 fl (6.2-12.0); Monocyte% 7.7 % (0-10); NRBC Flagged by Analyzer 0 % (0-5); Neutrophil # 3.31 X10^3/uL (2.7-7.7); Neutrophil % 42.2 % (47-70); Platelet Count 209 K/mm3 (150-450); RBC Distribution Width CV 13.3 % (11.6-14.6); RBC Distribution Width SD 48.9 fl (35.1-43.9); Red Blood Count 4.68 M/mm3 (4.2-5.4); White Blood Count 7.8 K/mm3 (4.4-11.0)
[2024-09-16 10:35] LABS: ALB/GLOB Ratio 0.7 RATIO (0.9-2.4); AST(SGOT) 17 U/L (15-37); Alanine Aminotransfer ALT/SGPT 21 U/L (13-56); Albumin, Serum 2.8 g/dL (3.2-5.0); Alkaline Phosphatase 69 U/L (45-117); Anion Gap 2 (5-15); BUN 32 mg/dL (7-18); BUN/Creat Ratio 30.8 RATIO (10-20); Calcium,Total 8.7 mg/dL (8.5-10.1); Chloride 109 mmol/L (98-107); Cholesterol 190 mg/dL (200); Creatinine, Serum 1.04 mg/dL (0.55-1.02); EST Glomerular Filtration Rate 54 mL/min (>60); Est Glom Filt Rate - Afr Amer 65 mL/min (>60); Glucose 89 mg/dL (74-106); High Density Lipoprotein 52 mg/dL; Potassium 4.4 mmol/L (3.5-5.1); Protein, Total 6.8 g/dL (6.4-8.2); Sodium Level 142 mmol/L (136-145); Triglycerides 125 mg/dL; Very Low Density Lipoprotein 25 mg/dL (5-40)
== END ==
LOC: OLS.ACH 04:00
PROVIDERS: Referring Provider Internal Medicine; Visit Provider Internal Medicine
DX: I10 Essential (primary) hypertension (principal); E03.9 Hypothyroidism, unspecified; E78.00 Pure hypercholesterolemia, unspecified
CPT/HCPCS: 36415; 80053; 80061; 84443; 85025

== ENCOUNTER → 2024-11-10 05:00 | Outpatient (REF) | payer MEDICARE, MEDICAID, SELFPAY ==
[2024-11-10 09:06] LABS: Hematocrit 41.3 % (37-47); Hemoglobin 12.5 g/dL (12.0-15.0); Mean Corp Hgb Conc 30.3 g/dL (32-36); Mean Corpuscular Hgb 30.9 pg (27.0-32.0); Platelet Count 351 K/mm3 (150-450); RBC Distribution Width CV 14.4 % (11.6-14.6); RBC Distribution Width SD 53.7 fl (35.1-43.9); Red Blood Count 4.05 M/mm3 (4.2-5.4); White Blood Count 8.5 K/mm3 (4.4-11.0)
[2024-11-10 09:35] LABS: Anion Gap 2 (5-15); BUN 22 mg/dL (7-18); Calcium,Total 8.7 mg/dL (8.5-10.1); Chloride 118 mmol/L (98-107); Creatinine, Serum 0.81 mg/dL (0.55-1.02); EST Glomerular Filtration Rate 72 mL/min (>60); Est Glom Filt Rate - Afr Amer 87 mL/min (>60); Glucose 96 mg/dL (74-106); Potassium 3.9 mmol/L (3.5-5.1); Sodium Level 151 mmol/L (136-145)
== END ==
LOC: OLS.ACH 05:00
PROVIDERS: Visit Provider Internal Medicine
DX: I10 Essential (primary) hypertension (principal)
CPT/HCPCS: 36415; 80048; 85027

== ENCOUNTER → 2024-11-17 | Outpatient (REF) | payer MEDICARE, SELFPAY ==
[2024-11-17 09:31] LABS: Anion Gap 9 (5-15); BUN 21 mg/dL (4-19); Calcium 8.4 mg/dL (7.6-11.0); Carbon Dioxide 25.7 mmol/L (22.0-29.0); Chloride 107 mmol/L (96-108); Creatinine, Serum 0.8 mg/dL (0.6-1.0); EST Glomerular Filtration Rate 78 (>60); Glucose 83 mg/dL (70-99); Potassium 4.5 mmol/L (3.3-5.1); Sodium Level 141 mmol/L (133-145)
== END ==
LOC: OLS.ACH 05:00
PROVIDERS: Visit Provider Internal Medicine
DX: J11.1 Influenza due to unidentified influenza virus with other respiratory manifestations (principal)
CPT/HCPCS: 36415; 80048

== ENCOUNTER → 2024-11-22 | Outpatient (REF) | payer MEDICARE, SELFPAY ==
[2024-11-22 10:05] LABS: Vitamin D,25 Hydroxy 45.2 ng/mL (30-100)
[2024-11-22 11:46] LABS: Valproic Acid (Depakene) Level 20 ug/mL (50-100)
== END ==
LOC: OLS.ACH 05:00
PROVIDERS: Visit Provider Internal Medicine
DX: E55.9 Vitamin D deficiency, unspecified (principal); F29 Unspecified psychosis not due to a substance or known physiological condition
CPT/HCPCS: 36415; 80164; 82306

== ENCOUNTER → 2024-12-09 | Outpatient (REF) | payer MEDICARE, SELFPAY ==
[2024-12-09 09:17] LABS: Absolute Lymphocyte Count 3.12 X10^3/uL (0.83-4.51); Absolute Neutrophil Count 3.7 X10^3/uL (2.0-7.7); Basophil# 0.07 X10^3/uL; Basophil% 0.9 % (0-1); Eosinophil# 0.32 X10^3/uL; Eosinophils% 4.1 % (0-5); Hematocrit 40.3 % (37-47); Hemoglobin 13.1 g/dL (12.0-15.0); Lymphocyte # 3.12 X10^3/ul (0.83-4.51); Lymphocyte % 39.9 % (19-41); Mean Corp Hgb Conc 32.5 g/dL (32-36); Mean Corpuscular Hgb 32.1 pg (27.0-32.0); Mean Corpuscular Volume 98.8 fL (81-99); Mean Platelet Vol. 11.4 fl (6.2-12.0); Monocyte# 0.55 X10^3/uL; NRBC Flagged by Analyzer 0 % (0-5); Neutrophil # 3.73 X10^3/uL (2.7-7.7); Neutrophil % 47.7 % (47-70); Platelet Count 160 K/mm3 (150-450); RBC Distribution Width CV 14.9 % (11.6-14.6); RBC Distribution Width SD 54.3 fl (35.1-43.9); Red Blood Count 4.08 M/mm3 (4.2-5.4); White Blood Count 7.8 K/mm3 (4.4-11.0)
[2024-12-09 09:46] LABS: ALB/GLOB Ratio 1.1 RATIO (0.9-2.4); AST(SGOT) 17 U/L (<=31); Alanine Aminotransfer ALT/SGPT 11 U/L (<=34); Albumin, Serum 3.3 g/dL (3.4-4.8); Alkaline Phosphatase 62 U/L (35-104); Anion Gap 8 (5-15); BUN 16 mg/dL (4-19); BUN/Creat Ratio 21.6 RATIO (10-20); Calcium,Total 8.9 mg/dL (7.6-11.0); Carbon Dioxide 28.8 mmol/L (21.0-32.0); Chloride 106 mmol/L (98-108); Creatinine, Serum 0.73 mg/dL (0.70-1.20); EST Glomerular Filtration Rate 82 (>60); Glucose 85 mg/dL (70-99); Potassium 4.4 mmol/L (3.3-5.1); Protein, Total 6.3 g/dL (5.9-8.4); Sodium Level 142 mmol/L (133-145); Total Bilirubin 0.48 mg/dL (0.00-1.30)
[2024-12-09 10:33] LABS: Cholesterol 203 mg/dL (<=200); High Density Lipoprotein 47 mg/dL; Low Density Lipoprotein Calc. 120 mg/dL; Triglycerides 180 mg/dL; Very Low Density Lipoprotein 36 mg/dL (5-40); cholesterol:hdl ratio screen 4.34
== END ==
LOC: OLS.ACH 04:00
PROVIDERS: Referring Provider Internal Medicine; Visit Provider Internal Medicine
DX: I10 Essential (primary) hypertension (principal); E03.9 Hypothyroidism, unspecified; E78.00 Pure hypercholesterolemia, unspecified
CPT/HCPCS: 36415; 80053; 80061; 84443; 85025

== ENCOUNTER → 2025-02-16 05:00 | Outpatient (REF) | payer MEDICARE, SELFPAY ==
[2025-02-16 10:23] LABS: Valproic Acid (Depakene) Level 27 ug/mL (50-100)
[2025-02-16 12:53] LABS: Vitamin D,25 Hydroxy 36.9 ng/mL (30-100)
== END ==
LOC: OLS.ACH 05:00
PROVIDERS: Visit Provider Internal Medicine
DX: F29 Unspecified psychosis not due to a substance or known physiological condition (principal)
CPT/HCPCS: 36415; 80164; 82306

== ENCOUNTER → 2025-03-03 05:00 | Outpatient (REF) | payer MEDICARE, SELFPAY ==
--- OUTSIDE RECORDS SUMMARY | 2025-03-03 04:23 | XMS RPT_ITS | CCD ---
Author Organization [facility] Care Team Providers Care Chemical Dependency Therapist Name Role Phone Barbaar, Scott Unavailable Unavailable Isbell, Keena Unavailable Unavailable Unknown, Referring Provider Unavailable Unav ailable Cynthia Uribe Unavailable Unavailable Cynthia Uribe Primary Care Provider Cynthia Uribe Primary Care Provider [phone] Jojo MARIANO, Cynthia Primary Care Provider Unknown, Referring Provider Unavailable Unav ailable Unavailable Unavailable Jojo MARIANO, Cynthia Primary Care Provider Jojo MARIANO, Cynthia Primary Care Provider [phone] CYNTHIA URIBE Primary Care Unavailable JOHN PENNY Admitting Unavailable JOHN PENNY Attending Unavailable CYNTHIA URIBE Primary Care Unavailable BEBA BRAY Unavailable Jim MARIANO, Saurabh Attending Provider Unavailable Jim MARIANO, Saurabh Referring Provider Unavailable Deperro OLS, Saurabh Attending Unavailable Deperro OLS, Saurabh Attending Unavailable Deperro OLS, Saurabh Attending Unavailable Deperro OLS, Saurabh Attending Unavailable Deperro OLS, Saurabh Referring Unavailable Deperro OLS, Saurabh Attending Unavailable Deperro OLS, Saurabh Attending Unavailable Deperro OLS, Saurabh Attending Unavailable Deperro OLS, Saurabh Attending Unavailable Deperro OLS, Saurabh Referring Unavailable Deperro OLS, Saurabh Attending Unavailable Deperro OLS, Saurabh Attending Unavailable Deperro OLS, Saurabh Attending Unavailable Deperro OLS, Saurabh Attending Unavailable Deperro OLS, Saurabh Attending Unavailable Medications Current Medications Medication Drug Class(es) Dates Sig (Normalized) Sig (Original) Acetaminophen (7 sources) Start: 03-06-2020 acetaminophen (TYLENOL) tablet 650 mg take 1 tablet by jovanni th every six hours as needed for pain acetaminophen (TYLENOL) 500 MG tablet Ta ke 500 mg by mouth every 6 hours as needed for Pain 0 Active [id number] actuat albuterol 0.09 mg/actuat metered dose inhaler (11 sources) beta2-Adrenergic Agonist Start: 03-19-2021 take 2 puff(s) by inhalation every six hours as needed for wheezing albuterol sulfate HFA 108 (90 Base) MCG/ACT inhaler Indications: Mild intermittent asthma without complication INHALE 2 PUFFS INTO THE LUNGS EVERY 6 HOURS NEEDED FOR WHEEZING OR SHORTNESS OF BREATH 20.1 Inhaler 1 03/19/2021 Active Start: 11-01-2020 albuterol (PRO VENTIL) (2.5 MG/3ML) 0.083% nebulizer solution Indications: Mild intermittent asthma without complication Take 3 mLs by nebulization every 6 hours as needed for Wheezing or Shortness of Breath DX ASTHMA j45.20 120 each 3 11/01/2020 Active Start: 03-06-2020 2.5 mg, Nebuli zation, EVERY 6 HOURS PRN, Wheezing, Shortness of Breath, Starting 03/06/20 at 1924 Start: 01-22-2020 Albuterol Sulf ate (2.5 MG/3ML) 0.083% Inhalation Nebulization Solution USE 1 UNIT DOSE IN NEBULIZER UP TO EVERY 4 TO 6 HOURS NEEDED FOR PERSISTENT COUGH, WHEEZE OR SOB. Quantity: 1 Refills: 0 Ordered: 22-Jan-2020 Keena Isbell DO Start : 22-Jan-2020 Active Start: 08-31-2019 take 2 puff(s) by in halation every six hours as needed for wheezing albuterol sulfate HFA (VENTOLIN HFA) 108 (90 Base) MCG/ACT inhaler Indications: Mild intermittent asthma without complication Inhale 2 puffs into the lungs every 6 hours as needed for Wheezing or Shortness of Breath 1 Inhaler 3 08/31/2019 Active Start: 08-31-2019 End: 09-30-2019 take 2 puff(s) by inhalation every six hours as needed for wheezing albuterol sulfate HFA (VENTOLIN HFA) 108 (90 Base) MCG/ACT inhaler Indications: Mild intermittent asthma without complication Inhale 2 puffs into the lungs every 6 hours as needed for Wheezing or Shortness of Breath 1 Inhaler 3 08/31/2019 09/30/2019 Active alginic acid 200 mg / calcium carbonate 80 mg / magnesium trisilicate 20 mg / sodium bicarbonate 70 mg oral tablet (2 sources) take 1 tablet by mouth once daily calcium carbonate (TUMS) 500 MG chewable tablet Take 1 tablet by mouth daily 0 Active amLODIPine 5 mg oral tablet (7 sources) Dihydropyridine Calcium Channel Sonia Start: 02-22-20 21 take 1 tablet by mouth once daily amLODIPine (NORVASC) 5 MG tablet Indications: Essential hypertension TAKE 1 TABLET BY MOUTH EVERY DAY 90 tablet 0 02/21/2021 Active Start: 04-28-2019 take 1 tablet by jovanni th twice daily amLODIPine (NORVASC) 5 MG tablet Indications: Essential hypertension TAKE 1 TABLET BY MOUTH TWICE A DAY 180 tablet 1 04/28/2019 Active Start: 06-12-2017 take 1 tablet by jovanni th once daily amLODIPine (NORVASC) 5 MG tablet Indications: Essential hypertension Take one tablet po daily 180 tablet 1 02/01/2020 Active Comment on above: Take 5 mg by mouth o nce daily. aspirin 81 mg chewable tablet (1 source) Platelet Aggregation Inhibitor, Nonsteroidal Anti-inflammatory Drug Start: 7 take 1 tablet by mouth once daily aspirin 81 MG chewable tablet Take 1 tablet by mouth daily 30 tablet 0 03/09/2017 Active 60 actuat budesonide 0.08 mg/actuat / formoterol fumarate 0.0045 mg/actuat metered dose inhaler (7 sources) Corticosteroid, beta2-Adrenergic Agonist Start: 0 take 2 puff(s) by inhalation twice daily budesonide-formot viri (SYMBICORT) 80-4.5 MCG/ACT AERO Inhale 2 puffs into the lungs 2 times daily 2 Inhaler 0 03/03/2020 Active Start: 09-25-2018 take 2 puff(s) by mo uth twice daily SYMBICORT 80-4.5 MCG/ACT AERO INHALE 2 PUFFS BY MOUTH 2 TIMES A DAY FOR 30 DAYS. 1 09/25/2018 Active busPIRone hydrochloride 5 mg oral tablet (2 sources) Start: 03-29-2020 take 1 tablet by mouth once daily busPIRone (BUSPAR) 5 MG tablet Indications: Anxiety TAKE 1 TABLET BY MOUTH EVERY DAY 60 tablet 0 03/29/2020 Active calcium carbonate 500 mg chewable tablet (5 sources) Start: 03-06-2020 take 500 mg by mouth once daily 500 mg, Oral, DAILY, First dose on Fri03/06/20 at 2000 take 1 tablet by mouth once digna y calcium carbonate (TUMS) 500 MG chewable tablet Take 1 tablet by mouth daily 0 Active 0.4 ml enoxaparin sodium 100 mg/ml prefilled syringe (1 source) Low Molecular Weight Heparin Start: 03-06-2020 inject 40 mg by subcutaneous injection once daily 40 mg, Subcutaneous, DAILY, First dose on Fri03/06/20 at 1800 folic acid 0.4 mg oral tablet (1 source) take 1 tablet by mouth once daily folic acid (FOLVITE) 400 MCG tablet Take 400 mcg by mouth daily 0 Active 60 actuat formoterol fumarate 0.005 mg/actuat / mometasone furoate 0.1 mg/actuat metered dose inhaler (1 source) Corticosteroid, beta2-Adrenergic Agonist Start: 03-06-2020 take 2 puff(s) by inhalation twice daily 2 puff, Inhalation, 2 TIMES DAILY, First dose on Fri03/06/20 at 2000 Substituted for Budesonide-Formote rol (SYMBICORT). Handicap Placard MISC (5 sources) Start: 08-31-2019 [facility] Indications: Mild intermittent asthma without complication by Does not apply route DX and asthma 5 years 1 each 0 08/31/2019 Active hydrOXYzine hydrochloride 10 mg oral tablet (1 source) Antihistamine Start: 03-07-2020 hydrOXYzine (ATARAX) tablet 10 mg 4 ml labetalol hydrochloride 5 mg/ml cartridge (1 source) beta-Adrenergic Sonia Start: 03-06-2020 10 mg, Intravenous, EVERY 10 MIN PRN, High Blood Pressure, Starting Fri03/06/20 at 1708 Administer 10 mg IV every 10 min if SBP is 210 mmHg or greater OR DBP is 120 mmHg or greater as long as HR is greater than 65 bpm until goal BP has been achieved and to a max of 30 mg Notify provider if SBP is 210 mmHg or greater OR DBP is 120 mmHg or greater after 3 consecutive doses. If HR is less than 65 call MD for further orders Multiple Vitamin (MULTI VITAMIN DAILY PO) (6 sources) Multiple Vitamin (MULTI VITAMIN DAILY PO) Take by mouth 0 Active 2 ml ondansetron 2 mg/ml injection (1 source) Serotonin-3 Receptor Antagonist Start: 03-06-2020 4 mg, Intravenous, EVERY 6 HOURS PRN, Nausea, Vomiting, Starting Fri03/06/20 at 1708 perflutren lipid microspheres (DEFINITY) injection 1.65 mg (1 source) Start: 03-06-2020 End: 03-09-2020 1.65 mg (1.5 mL), Intravenous, IMG ONCE PRN, Other, Suboptimal Echo Image, Starting Fri03/06/20 at 1709, For 72 hours Administer up to 1.65 mg via slow IVP for suboptimal echocardiogram enhancement.&n bsp;May administer as concentrated dose or diluted in 8.5 mL of 0.9% sodium chloride for a total volume of 10 mL. May administer as divided doses to reach optimal image enhancement. polyethylene glycol 3350 42127 mg powder for oral solution (1 source) Osmotic Laxative Start: 03-06-2020 17 g, Oral, DAILY PRN, Constipation, Starting Fri03/06/20 at 1710 First line therapy for constipation simethicone 80 mg chewable tablet (2 sources) take 1 tablet by mouth every six hours as needed simethicone (MYLICON) 80 MG chewable tablet Take 80 mg by mouth every 6 hours as needed for Flatulence 0 Active 3 ml sodium chloride 9 mg/ml injection (5 sources) Start: 03-06-2020 10 mL, Intravenous, EVERY 12 HOURS SCHEDULED (2 times per day), First dose on Fri03/06/20 at 2100 Start: 03-06-2020 End: 03-09-2020 take 10 mL intravenous route once as needed 10 mL, Intravenous, PRN, Line Care, Per Digital Forensic Examiner Request, Starting Fri03/06/20 at 1709, For 72 hours May use order for Line Care after every IV line use and Agitated Saline Bubble Study. Administration for Bubble Study per helmet coverer request for only. Remove 1 mL 0.9% sodium chloride from 10 mL syringe for creating agitated saline. Start: 03-06-2020 End: 03-08-2020 Intravenous, at 50 mL/hr, CONTINUOUS, Starting Fri03/06/20 at 1745 Start: 03-06-2020 End: 03-06-2020 0.9 % sodium chloride bolus sodium chloride flush 0.9 % injection 3 mL (2 sources) Start: 11-02-2020 sodium chlorid e flush 0.9 % injection 3 mL Start: 11-02-2020 sodium chlorid e flush 0.9 % injection 3 mL therapeutic multivitamin-minerals 1 tablet (1 source) Start: 03-07-2020 take 1 tablet by mouth once daily 1 tablet, Oral, DAILY, First dose on Fri03/07/20 at 0900 Completed/Discontinued Medications Medication Drug Class(es) Dates Sig (Normalized) Sig (Original) azithromycin 250 mg oral tablet (3 sources) Macrolide Antimicrobial Start: 12-06-2017 Azithromycin 250 MG Oral Tablet TAKE 2 TABLETS ON DAY 1 THEN TAKE 1 TABLET A DAY FOR 4 DAYS. Quantity: 1 Refills: 0 Ordered: 06-Dec-2017 Scott Jimenez MD Start : 06-Dec-2017 Active cefTRIAXone (ROCEPHIN) 1 g IVPB in NS 50ml minibag (1 source) Start: 03-06-2020 End: 03-06-2020 cefTRIAXone (ROCEPHIN) 1 g IVPB in NS 50ml minibag cefTRIAXone sodium 1 g in sodium chloride 0.9 % 100 mL IVPB (add-vantage) (1 source) Start: 03-07-2020 End: 03-07-2020 1 g, Intravenous, EVERY 24 HOURS, First dose on Fri03/07/20 at 1330, Until Discontinued donepezil hydrochloride 5 mg oral tablet (1 source) Start: 03-01-2020 End: 03-09-2020 take 1 tablet by mouth once daily donepezil (ARICEPT) 5 MG tablet Indications: Memory loss TAKE 1 TABLET BY MOUTH EVERY DAY AT NIGHT 90 tablet 0 03/01/2020 03/09/2020 Discontinued (Stop Taking at Discharge) ergocalciferol 1.25 mg oral capsule (8 sources) Provitamin D2 Compound Start: 03-28-2022 take 1 capsule by mouth every week ergocalciferol 50,000 unit capsule (VITAMIN D2, DRISDOL) Take 50,000 Units by mouth one time a week. 0 03/28/2022 Suspended Start: 02-21-2021 take 1 capsule by mo [facility] every week vitamin D (ERGOCALCIFEROL) 1.25 MG (09833 UT) CAPS capsule Indications: Vitamin D deficiency TAKE 1 CAPSULE BY MOUTH ONE TIME PER WEEK 12 capsule 0 02/21/2021 Active Start: 06-01-2020 take 1 capsule by mo ut every week vitamin D (ERGOCALCIFEROL) 1.25 MG (04241 UT) CAPS capsule Indications: Vitamin D deficiency TAKE 1 CAPSULE BY MOUTH ONE TIME PER WEEK 12 capsule 1 06/01/2020 Active Start: 02-01-2020 take 60635 [IU] by m outh every week 50,000 Units, Oral, WEEKLY, First dose on Fri03/07/20 at 0900 Start: 03-09-2017 take 1 capsule by mo [facility] every week vitamin D (ERGOCALCIFEROL) 38751 units capsule Take 1 capsule by mouth once a week 30 capsule 0 03/09/2017 Active Comment on above: Take 50,000 Units by mouth one time a week. iopamidol (ISOVUE-370) 76 % injection 75 mL (1 source) Start: 1 End: 1 iopamidol (ISOVUE-370) 76 % injection 75 mL levothyroxine sodium 0.025 mg oral tablet (8 sources) l-Thyroxine Start: 2 take 1 tablet by mouth once daily levothyroxine (SYNTHROID) 25 mcg tablet Take 25 mcg by mouth once daily. 0 05/14/2022 Suspended Start: 08-28-2020 take 1 tablet by jovanni th once daily levothyroxine (SYNTHROID) 25 MCG tablet Indications: Other specified hypothyroidism Take 1 tablet by mouth everyday 90 tablet 1 08/28/2020 Active Start: 02-01-2020 take 25 ug by mouth once daily 25 mcg, Oral, DAILY, First dose on Fri03/07/20 at 0700 Tube feeding (TF) interaction, obtain physician order to manage, recommend holding TF for 30 minutes before and after dose. Start: 02-22-2019 take 1 tablet by jovanni th once daily levothyroxine (SYNTHROID) 25 MCG tablet TAKE 1 TABLET BY MOUTH DAILY 90 tablet 1 02/22/2019 Active Comment on above: Take 25 mcg by mouth once daily. 1 ml morphine sulfate 4 mg/ml cartridge (1 source) Opioid Agonist Start: 03-06-2020 End: 03-06-2020 morphine (PF) injection 2 mg Start: 03-06-2020 End: 03-06-2020 morphine (PF) injection 2 mg 100 ml potassium chloride 0. 1 meq/ml injection (2 sources) Start: 03-06-2020 End: 03-06-2020 potassium chloride 10 mEq/10 0 mL IVPB (Peripheral Line) Start: 03-06-2020 End: 03-07-2020 take 1 tablet by mouth twice daily at mealtime, then take 0.5 tablet by mouth, then take 0.5 tablet by mouth 40 mEq, Oral, 2 TIMES DAILY WITH MEALS, First dose on 03/06/20 at 1745, For 2 doses Do not crush, chew, or suck on tablet. Tablet may also be broken in half and each half swallowed separately. predniSONE 10 mg oral tablet (3 sources) Start: 12-06-2017 predniSONE 10 MG Oral Tablet 3 tabs day number 1 and 2, then 2 tabs day number 3 and 4, then 1 tab day number 5 and 6 Quantity: 12 Refills: 0 Ordered: 06-Dec-2017 Scott Jimenez MD Start : 06-Dec-2017 Active rivaroxaban 20 mg oral tablet (1 source) Factor Xa Inhibitor Start: 03-15-2022 take 1 tablet by mouth once daily at breakfast XARELTO 20 mg tablet Take 20 mg by mouth daily with breakfast. 0 03/15/2022 Suspended Comment on above: Take 20 mg by mouth daily with breakfast. Spacer for Metered Dose Inhaler (2 sources) Start: 01-22-2020 Spacer for Metered Dose Inhaler Use with inhaler to get the medication down into your lungs. Pharmacy: Please have patient demonstrate appropriate use. Thx. Quantity: 1 Refills: 0 Ordered: 22-Jan-2020 Keena Isbell DO Start : 22-Jan-2020 Active traZODone hydrochloride 50 mg oral tablet (1 source) Serotonin Reuptake Inhibitor Start: 05-25-2022 take 1 tablet by mouth once daily as needed traZODone (DESYREL) 50 mg tablet Take 50 mg by mouth once daily as needed. 0 05/25/2022 Suspended Comment on above: Take 50 mg by mouth once daily as needed. 24 hr venlafaxine 150 mg extended release oral capsule (8 sources) Serotonin and Norepinephrine Reuptake Inhibitor Start: 05-14-2022 take 1 capsule by mouth once daily venlafaxine ER (EFFEXOR XR) 150 mg 24 hr capsule Take 150 mg by mouth once daily. 0 05/14/2022 Suspended Start: 02-21-2021 take 1 capsule by mo uth once daily venlafaxine (EFFEXOR XR) 150 MG extended release capsule Indications: Recurrent depression (HCC) TAKE 1 CAPSULE BY MOUTH EVERY DAY 90 capsule 0 02/21/2021 Active Start: 02-01-2020 take 1 capsule by mo uth once daily venlafaxine (EFFEXOR XR) 150 MG extended release capsule Indications: Recurrent depression (HCC) Take 1 capsule by mouth daily 90 capsule 3 02/01/2020 Active Start: 08-31-2019 take 1 capsule by mo uth once daily venlafaxine (EFFEXOR XR) 150 MG extended release capsule Indications: Recurrent depression (HCC) Take 1 capsule by mouth daily 90 capsule 3 08/31/2019 Active Start: 01-27-2019 take 1 capsule by mo uth once daily venlafaxine (EFFEXOR XR) 150 MG extended release capsule TAKE 1 CAPSULE BY MOUTH EVERY DAY 30 capsule 5 01/27/2019 Active Comment on above: Take 150 mg by mouth once daily. Problems Active Problems Problem Classification Problem Date Documented Date Episodic/Chronic Abdominal pain (1 source) Right lower quadrant pain; Translations: [Abdominal pain, right lower quadrant] Episodic Acute bronchitis (3 sources) Acute bronchitis; Translations: [Acute bronchitis] Episodic Asthma (7 sources) Mild intermittent asthma; Translations: [Mild intermittent asthma, uncomplicated] Onset: 02-01-2020 02-01-2020 Chronic Biliary tract disease (1 source) Gallstone; Translations: [Gallstones] Episodic Delirium, dementia, and amnestic and other cognitive disorders (5 sources) Senile dementia with delusion; Translations: [Unspecified dementia with behavioral disturbance] Onset: 06-05-2022 Chronic Disorders of lipid metabolism (2 sources) Pure hypercholesterolemia , unspecified; Translations: [Pure hypercholesterolemia , unspecified] Onset: 09-29-2024 Chronic Essential hypertension (9 sources) Essential hypertension; Translations: [Essential (primary) hypertension] Onset: 11-28-2016 11-28-2016 Chronic Influenza (1 source) Influenza due to other identified influenza virus with other respiratory manifestations; Translations: [Influenza due to other identified influenza virus with other respiratory manifestations] Onset: 12-23-2024 Episodic Mood disorders (8 sources) Depressive disorder; Translations: [Recurrent depression] Onset: 06-12-2017 06-12-2017 Chronic Nutritional deficiencies (10 sources) Vitamin D deficiency; Translations: [Vitamin D deficiency, unspecified] Onset: 06-12-2017 06-12-2017 Chronic Other lower respiratory disease (1 source) Dyspnea; Translations: [Shortness of breath] Episodic Other non-traumatic joint disorders (2 sources) Pain in left knee; Translations: [Knee pain, left] Episodic Other nutritional; endocrine; and metabolic disorders (4 sources) Morbid obesity; Translations: [Morbid (severe) obesity due to excess calories] Onset: 02-01-2020 02-01-2020 Chronic Residual codes; unclassified (1 source) Altered mental status; Translations: [Altered mental status, unspecified altered mental status type] Episodic Residual codes; unclassified (1 source) Edema of lower extremity; Translations: [Lower extremity edema] Episodic Residual codes; unclassified (1 source) Disorientation, unspecified; Translations: [Confusion] Onset: 06-05-2022 Episodic Schizophrenia and other psychotic disorders (2 sources) Unspecified psychosis not due to a substance or known physiological condition; Translations: [Unspecified psychosis not due to a substance or known physiological condition] Onset: 03-22-2024 Chronic Thyroid disorders (5 sources) Hypothyroidism; Translations: [Other specified hypothyroidism] Onset: 09-29-2024 Chronic Urinary tract infections (2 sources) Urinary tract infectious disease; Translations: [Acute cystitis without hematuria] Onset: 06-05-2022 Episodic Past or Other Problems Problem Classification Problem Date Documented Da te Episodic/Chronic Fracture of upper limb (6 sources) Closed fracture of lower end of radius AND ulna; Translations: [Unspecified fracture of the lower end of left radius, initial encounter for closed fracture] Onset: 09-08-2018 09-08-2018 Episodic Residual codes; unclassified (5 sources) Delirium; Translations: [Disorientation, unspecified] Onset: 03-06-2020 03-06-2020 Episodic Results Test Name Value Interpretation Reference Range Facility Valproic Acid (Depakene) Lev ladonna 02-16-2025 VALPROIC ACID 27 ug/mL Low 50-100 [facility] Comment on above: Order Comment: Result Comment: Valp roic Acid concentrations >100 ug/mL are potentially toxic. Performed By: #### L 506.1001, L501.8100 #### [facility] [address] [place], [place], [address] Vitamin D,25 Hydroxyon 02-16 Vitamin D 25-OH 36.9 ng/mL Normal 30-100 [facility] Comment on above: Order Comment: 105 Result Comment: Kerline min D Status Deficiency: <20 ng/mL (50nmol/L) Insufficiency: 20-30 ng/mL (50-75 nmol/L) Sufficiency: 30-100 ng/mL (75-250 nmol/L) Toxicity: >100 ng/mL (>250 nmol/L) Performed By: #### L 506.1001, [id number] #### [facility] [address] [place], [place], [address] Absolute neutrophil countOrd ered By: Saurabh Fernandez on 12-09-2024 Neutrophils (Bld) [#/Vol] 3.7 10*3/uL 2.0-7.7 [facility] Anion gap in Serum or Plasma Ordered By: Saurabh Fernandez on 12-09-2024 Anion gap [Moles/Vol] 8 mmol/L - [facility] BUN/creatinine ratioOrdered By: Saurabh Fernandez on 12-09-2024 Urea nitrogen/Creatinine [Mass ratio] 21.6 mg/mg High - [facility] Basophil percentageOrdered B y: Saurabh Fernandez on 12-09-2024 Basophils/100 WBC (Bld) 0.9 % 0- [facility] Bilirubin, totalOrdered By: Saurabh Fernandez on 12-09-2024 Bilirubin [Mass/Vol] 0.48 mg/dL 0.00-1.30 [facility] CBC W/Diff, Automatedon 11-21 Absolute Lymph 3.12 X10 3/uL Normal 0.83-4.51 [facility] Comment on above: Order Comment: 105-1 Performed By: #### L 506.1001, [id number] #### [facility] [address] [place], [address] Absolute Neut 3.7 X10 3/uL Normal 2.0-7.7 [facility] Comment on above: Order Comment: 105-1 Performed By: #### L 506.1001, [id number] #### [facility] [address] [place], [address] Basophils/100 WBC (Bld) 0.9 % Normal 0-1 [facility] Comment on above: Order Comment: 105-1 Performed By: #### L 506.1001, [id number] #### [facility] [address] [place], [address] Eosinophils/100 WBC (Bld) 4.1 % Normal 0-5 [facility] Comment on above: Order Comment: 105-1 Performed By: #### L 506.1001, [id number] #### [facility] [address] [place], [address] Erythrocyte distribution width (RBC) [Ratio] 14.9 % High 11.6-14.6 [facility] Comment on above: Order Comment: 105-1 Performed By: #### L 506.1001, [id number] #### [facility] [address] [place], [address] Hematocrit (Bld) [Volume fraction] 40.3 % Normal 37-47 [facility] Comment on above: Order Comment: 105-1 Performed By: #### L 506.1001, [id number] #### [facility] [address] [place], [address] Hemoglobin (Bld) [Mass/Vol] 13.1 g/dL Normal 12.0-15.0 [facility] Comment on above: Order Comment: 105-1 Performed By: #### L 506.1001, [id number] #### [facility] [address] [place], [address] IG% 0.400 Normal 0.0-0.9 [facility] Comment on above: Order Comment: 105-1 Result Comment: IG% - Immature Granulocytes (promyelocytes, myelocytes and metamyelocytes) > 1% indicates that a LEFT SHIFT is Present. Performed By: #### L 506.1001, [id number] #### [facility] [address] [place], [address] Lymphocytes/100 WBC (Bld) 39.9 % Normal 19-41 [facility] Comment on above: Order Comment: 105-1 Performed By: #### L 506.1001, [id number] #### [facility] [address] [place], [address] MCH (RBC) [Entitic mass] 32.1 pg High 27.0-32.0 [facility] Comment on above: Order Comment: 105-1 Performed By: #### L 506.1001, [id number] #### [facility] [address] [place], [address] MCHC (RBC) [Mass/Vol] 32.5 g/dL Normal 32-36 [facility] Comment on above: Order Comment: 105-1 Performed By: #### L 506.1001, [id number] #### [facility] [address] [place], [address] MCV (RBC) [Entitic vol] 98.8 fL Normal 81-99 [facility] Comment on above: Order Comment: 105-1 Performed By: #### L 506.1001, [id number] #### [facility] [address] [place], [address] Monocytes/100 WBC (Bld) 7.0 % Normal 0-10 [facility] Comment on above: Order Comment: 105-1 Performed By: #### L 506.1001, [id number] #### [facility] [address] [place], [address] Neutrophils/100 WBC (Bld) 47.7 % Normal 47-70 [facility] Comment on above: Order Comment: 105-1 Performed By: #### L 506.1001, [id number] #### [facility] [address] [place], [address] Nucleated RBC (Bld) [#/Vol] 0 10*3/uL Normal 0-5 [facility] Comment on above: Order Comment: 105-1 Performed By: #### L 506.1001, L501.8100 #### [facility] [address] [place], [address] Platelet mean volume (Bld) [Entitic vol] 11.4 fL Normal 6.2-12.0 [facility] Comment on above: Order Comment: 105-1 Performed By: #### L 506.1001, L501.8100 #### [facility] [address] [place], [address] Platelets (Bld) [#/Vol] 160 10*3/uL Normal 150-450 [facility] Comment on above: Order Comment: 105-1 Performed By: #### L 506.1001, L501.8100 #### [facility] [address] [place], [address] RBC (Bld) [#/Vol] 4.08 10*6/uL Low 4.2-5.4 [facility] Comment on above: Order Comment: 105-1 Performed By: #### L 506.1001, L501.8100 #### [facility] [address] [place], [address] RDW SD 54.3 fl High 35.1-43.9 [facility] Comment on above: Order Comment: 105-1 Performed By: #### L 506.1001, L501.8100 #### [facility] [address] [place], [address] WBC (Bld) [#/Vol] 7.8 10*3/uL Normal 4.4-11.0 [facility] Comment on above: Order Comment: 105-1 Performed By: #### L 506.1001, L501.8100 #### [facility] [address] [place], [address] Calculated very low density lipoprotein (VLDL) cholesterol measurementOrdered By: Saurabh Fernandez on 12-09-2024 VLDL Cholesterol 36 mg/dL 5-40 [facility] Carbon dioxide, total [Moles /volume] in Central venous bloodOrdered By: Saurabh Fernandez on 12-09-2024 CO2 [Moles/Vol] 28.8 mmol/L 21.0-32.0 [facility] Chloride assayOrdered By: Nieto on 12-09-2024 Chloride [Moles/Vol] 106 mmol/L 98-108 [facility] Comprehensive Metabolic Prof ilon 12-09-2024 Albumin [Mass/Vol] 3.3 g/dL Low 3.4-4.8 [facility] Comment on above: Order Comment: 105-1 Performed By: #### L 506.1001, L501.8100 #### [facility] [address] [place], [address] Albumin/Globulin [Mass ratio] 1.1 {ratio} Normal 0.9-2.4 [facility] Comment on above: Order Comment: 105-1 Performed By: #### L 506.1001, L501.8100 #### [facility] [address] [place], [address] ALK PHOS 62 U/L Normal 35-104 [facility] Comment on above: Order Comment: 105-1 Performed By: #### L 506.1001, L501.8100 #### [facility] [address] [place], [address] ALT [Catalytic activity/Vol] 11 U/L Normal <=34 [facility] Comment on above: Order Comment: 105-1 Performed By: #### L 506.1001, L501.8100 #### [facility] [address] [place], [address] AST [Catalytic activity/Vol] 17 U/L Normal <=31 [facility] Comment on above: Order Comment: 105-1 Performed By: #### L 506.1001, L501.8100 #### [facility] [address] [place], [address] Bilirubin [Mass/Vol] 0.48 mg/dL Normal 0.00-1.30 [facility] Comment on above: Order Comment: 105-1 Performed By: #### L 506.1001, [id number] #### [facility] [address] [place], [address] BUN/CRE 21.6 RATIO High 10-20 [facility] Comment on above: Order Comment: 105-1 Performed By: #### L 506.1001, L501.8100 #### [facility] [address] [place], [address] Calcium [Mass/Vol] 8.9 mg/dL Normal 7.6-11.0 [facility] Comment on above: Order Comment: 105-1 Performed By: #### L 506.1001, [id number] #### [facility] [address] [place], [address] Chloride [Moles/Vol] 106 mmol/L Normal 98-108 [facility] Comment on above: Order Comment: 105-1 Performed By: #### L 506.1001, [id number] #### [facility] [address] [place], [address] CO2 [Moles/Vol] 28.8 mmol/L Normal 21.0-32.0 [facility] Comment on above: Order Comment: 105-1 Performed By: #### L 506.1001, L501.8100 #### [facility] [address] [place], [address] Creatinine [Mass/Vol] 0.73 mg/dL Normal 0.70-1.20 [facility] Comment on above: Order Comment: 105-1 Performed By: #### L 506.1001, [id number] #### [facility] [address] [place], [address] GAP 8 Normal 5-15 [facility] Comment on above: Order Comment: 105-1 Performed By: #### L 506.1001, L501.8100 #### [facility] [address] [place], [address] GFR/1.73 sq M.predicted among non-blacks MDRD (S/P/Bld) [Vol rate/Area] 82 mL/min/{1.73_m2} Normal >60 [facility] Comment on above: Order Comment: 105-1 Result Comment: mL/m in/1.73m2 CKD-EPI Creatinine Equation (2020) Performed By: #### L 506.1001, L501.8100 #### [facility] [address] [place], [address] Globulin (S) [Mass/Vol] 3.0 g/dL Normal 2.2-4.2 [facility] Comment on above: Order Comment: 105-1 Performed By: #### L 506.1001, L501.8100 #### [facility] [address] [place], [address] Glucose [Mass/Vol] 85 mg/dL Normal 70-99 [facility] Comment on above: Order Comment: 105-1 Performed By: #### L 506.1001, L501.8100 #### [facility] [address] [place], [address] Potassium [Moles/Vol] 4.4 mmol/L Normal 3.3-5.1 [facility] Comment on above: Order Comment: 105-1 Performed By: #### L 506.1001, L501.8100 #### [facility] [address] [place], [address] Sodium [Moles/Vol] 142 mmol/L Normal 133-145 [facility] Comment on above: Order Comment: 105-1 Performed By: #### L 506.1001, L501.8100 #### [facility] [address] [place], [address] T PROT 6.3 g/dL Normal 5.9-8.4 [facility] Comment on above: Order Comment: 105-1 Performed By: #### L 506.1001, L501.8100 #### [facility] [address] [place], [address] Urea nitrogen [Mass/Vol] 16 mg/dL Normal 4-19 [facility] Comment on above: Order Comment: 105-1 Performed By: #### L 506.1001, L501.8100 #### [facility] [address] [place], [address] Eosinophil percentageOrdered By: Saurabh Fernandez on 12-09-2024 Eosinophils/100 WBC (Bld) 4.1 % 0-5 [facility] Erythrocyte distribution wid th (RBC) [Ratio]Ordered By: Saurabh Fernandez on 12-09-2024 Erythrocyte distribution width (RBC) [Entitic vol] 54.3 fL High 35.1-43.9 [facility] Erythrocyte distribution wid th ratioOrdered By: Saurabh Fernandez on 12-09-2024 Erythrocyte distribution width (RBC) [Ratio] 14.9 % High 11.6-14.6 [facility] GFR/1.73 sq M.predicted layne g non-blacks MDRD (S/P/Bld) [Vol rate/Area]Ordered By: Saurabh Fernandez on 12-09-2024 Estimated GFR (MDRD) Non-Af Amer 82 >60 [facility] Comment on above: mL/min/1.73m2 CKD-EP I Creatinine Equation (2020) Hematocrit Auto (Bld) [Volum e fraction]Ordered By: Saurabh Fernandez on 12-09-2024 Hematocrit (Bld) [Volume fraction] 40.3 % 37-47 [facility] Hemoglobin measurementOrdere d By: Saurabh Fernandez on 12-09-2024 Hemoglobin (Bld) [Mass/Vol] 13.1 g/dL 12.0-15.0 [facility] Immature granulocytes/100 WB C Auto (Bld)Ordered By: Saurabh Fernandez on 12-09-2024 Immature granulocytes/100 WBC (Bld) 0.400 % 0.0-0.9 [facility] Comment on above: IG% - Immature Granu locytes (promyelocytes, myelocytes and metamyelocytes) > 1% indicates that a LEFT SHIFT is Present. LDL calc ser/plasOrdered By: Saurabh Fernandez on 12-09-2024 LDL Cholesterol, Calculated 120 mg/dL [facility] Comment on above: Wgqxhrvkwz=527-468 m g/dL & Higher Bjtz=898 mg/dL or greater Laboratory - Chemistry and C hemistry - challengeOrdered By: Saurabh Fernandez on 12-09-2024 AST [Catalytic activity/Vol] 17 U/L <32 [facility] Lipid Profileon 12-09-2024 CHOL:HDL 4.34 Normal [facility] Comment on above: Order Comment: 105-1 Performed By: #### L 506.1001, L501.8100 #### [facility] [address] [place], [address] Cholesterol [Mass/Vol] 203 mg/dL High <=200 [facility] Comment on above: Order Comment: 105-1 Result Comment: Chol esterol level, Desirable <200 mg/dL Borderline high cholesterol 200-239 mg/dL High cholesterol >=240 mg/dL Recommendations of the NCEP Adult Treatment Panel for the following risk-cutoff thresholds for the [place] population. Performed By: #### L 506.1001, L501.8100 #### [facility] [address] [place], [address] Cholesterol in HDL [Mass/Vol] 47 mg/dL Normal [facility] Comment on above: Order Comment: 105-1 Result Comment: Sherie onal Cholesterol Education Program (NCEP) guidelines: <40 mg/dL: Low HDL-cholesterol (major risk factor for CHD) >= 60 mg/dL: High HDL-cholesterol (negative risk factor for CHD) HDL-cholesterol is affected by a number of factors, e.g. smoking, exercise, hormones, sex and age. Performed By: #### L 506.1001, L501.8100 #### [facility] [address] [place], [address] Cholesterol in LDL [Mass/Vol] 120 mg/dL Normal [facility] Comment on above: Order Comment: 105-1 Result Comment: Bord tgnrra=483-661 mg/dL Higher Otgq=140 mg/dL or greater Performed By: #### L 506.1001, L501.8100 #### [facility] [address] [place], [address] Cholesterol in VLDL [Mass/Vol] 36 mg/dL Normal 5-40 [facility] Comment on above: Order Comment: 105-1 Performed By: #### L 506.1001, L501.8100 #### [facility] [address] [place], [address] Triglyceride [Mass/Vol] 180 mg/dL Normal [facility] Comment on above: Order Comment: 105-1 Result Comment: The drugs N-Acetylcysteine and Metamizole may falsely depress this assay. Normal range: <150 mg/dL Borderline High: 150-199 mg/dL High: 200-499 mg/dL Very High: >500 mg/dL Performed By: #### L 506.1001, L501.8100 #### [facility] [address] [place], [address] Lymphocytes Auto (Unsp spec) [#/Vol]Ordered By: Saurabh Fernandez on 12-09-2024 Lymphocytes (Bld) [#/Vol] 3.12 10*3/uL 0.83-4.51 [facility] Lymphocytes/100 WBC Auto (Un sp spec)Ordered By: Saurabh Fernandez on 12-09-2024 Lymphocytes/100 WBC (Bld) 39.9 % 19-41 [facility] MCV (mean corpuscular volume ) determinationOrdered By: Saurabh Fernandez on 12-09-2024 MCV (RBC) [Entitic vol] 98.8 fL 81-99 [facility] Mean corpuscular hemoglobin (MCH) determinationOrdered By: Saurabh Fernandez on 12-09-2024 MCH (RBC) [Entitic mass] 32.1 pg High 27.0-32.0 [facility] Mean corpuscular hemoglobin concentration (MCHC) determinationOrdered By: Saurabh Fernandez on 12-09-2024 MCHC (RBC) [Mass/Vol] 32.5 g/dL 32-36 [facility] Mean platelet volume determi nationOrdered By: Saurabh Fernandez on 12-09-2024 Platelet mean volume (Bld) [Entitic vol] 11.4 fL 6.2-12.0 [facility] Monocyte percentageOrdered B y: Saurabh Fernandez on 12-09-2024 Monocytes/100 WBC (Bld) 7.0 % 0-10 [facility] Neutrophil percentageOrdered By: Saurabh Fernandez on 12-09-2024 Neutrophils/100 WBC (Bld) 47.7 % 47-70 [facility] Nucleated red blood cell per centageOrdered By: Saurabh Fernandez on 12-09-2024 Nucleated RBC/100 WBC (Bld) [Ratio] 0 % 0-5 [facility] Platelet countOrdered By: Nieto on 12-09-2024 Platelets (Bld) [#/Vol] 160 10*3/uL 150-450 [facility] Potassium (Unsp spec) [Mass/ Vol]Ordered By: Saurabh Fernandez on 12-09-2024 Potassium [Moles/Vol] 4.4 mmol/L 3.3-5.1 [facility] RBC Auto (Bld) [#/Vol]Ordere d By: Saurabh Fernandez on 12-09-2024 RBC (Bld) [#/Vol] 4.08 10*6/uL Low 4.2-5.4 [facility] Screening total cholesterol/ high density lipoprotein (HDL) cholesterol ratioOrdered By: Saurabh Fernandez on 12-09-2024 Cholesterol.total/Chol esterol in HDL [Mass ratio] 4.34 {ratio} [facility] Serum creatinine measurement (mass/volume)Ordered By: Saurabh Fernandez on 12-09-2024 Creatinine [Mass/Vol] 0.73 mg/dL 0.70-1.20 [facility] Serum globulin measurementOr dered By: Saurabh Fernandez on 12-09-2024 Globulin (S) [Mass/Vol] 3.0 g/dL 2.2-4.2 [facility] Serum glucose measurement (m ass/volume)Ordered By: Saurabh Fernandez on 12-09-2024 Glucose [Mass/Vol] 85 mg/dL 70-99 [facility] Serum or plasma alanine macedo otransferase (ALT) measurementOrdered By: Saurabh Fernandez on 12-09-2024 ALT [Catalytic activity/Vol] 11 U/L <35 [facility] Serum or plasma albumin tyrese urement (mass/volume)Ordered By: Saurabh Fernandez on 12-09-2024 Albumin [Mass/Vol] 3.3 g/dL Low 3.4-4.8 [facility] Serum or plasma albumin/glob ulin mass ratioOrdered By: Saurabh Fernandez on 12-09-2024 Albumin/Globulin [Mass ratio] 1.1 {ratio} 0.9-2.4 [facility] Serum or plasma alkaline elia sphatase measurementOrdered By: Saurabh Fernandez on 12-09-2024 ALP [Catalytic activity/Vol] 62 U/L 35-104 [facility] Serum or plasma calcium tyrese urement (mass/volume)Ordered By: Saurabh Fernandez on 12-09-2024 Calcium [Mass/Vol] 8.9 mg/dL 7.6-11.0 [facility] Serum or plasma cholesterol in HDL measurement (mass/volume)Ordered By: Saurabh Fernandez on 12-09-2024 Cholesterol in HDL [Mass/Vol] 47 mg/dL >40 [facility] Comment on above: National Cholesterol Education Program (NCEP) guidelines:<40 mg/dL: Low HDL-cholesterol (major risk factor for CHD)>= 60 mg/dL: High HDL-cholesterol (negative risk factor for CHD)HDL-cholesterol is affected by a number of factors, e.g. smoking, exercise, hormones, sex and age. Serum or plasma cholesterol measurement (mass/volume)Ordered By: Saurabh Fernandez on 12-09-2024 Cholesterol [Mass/Vol] 203 mg/dL High <201 [facility] Comment on above: Cholesterol level, D esirable <200 mg/dLBorderline high cholesterol 200-239 mg/dLHigh cholesterol >=240 mg/dLRecommendations of the NCEP Adult Treatment Panel for the following risk-cutoff thresholds for the [place] population. Serum or plasma urea nitroge n measurement (mass/volume)Ordered By: Saurabh Fernandez on 12-09-2024 Urea nitrogen [Mass/Vol] 16 mg/dL 4-19 [facility] Sodium levelOrdered By: Saurabh Fernandez on 12-09-2024 Sodium [Moles/Vol] 142 mmol/L 133-145 [facility] TSH DL <= 0.005 mIU/L QnOrde red By: Saurabh Fernandez on 12-09-2024 Thyroid Stimulating Hormone (TSH) 2.930 uIU/mL 0.300-4.200 [facility] Thyroid Stim Hormone (TSH)on 12-09-2024 TSH 2.930 uIU/mL Normal 0.300-4.200 [facility] Comment on above: Order Comment: 105-1 Performed By: #### L 506.1001, L501.8100 #### [facility] [place], [address] Total proteinOrdered By: Ambreen Fernandez on 12-09-2024 Protein [Mass/Vol] 6.3 g/dL 5.9-8.4 [facility] Triglycerides measurementOrd ered By: Saurabh Fernandez on 12-09-2024 Triglyceride [Mass/Vol] 180 mg/dL <199 [facility] Comment on above: The drugs N-Acetylcy steine and Metamizole may falsely depress this assay. Normal range: <150 mg/dLBorderline High: 150-199 mg/dLHigh: 200-499 mg/dLVery High: >500 mg/dL White blood cell (WBC) count Ordered By: Saurabh Fernandez on 12-09-2024 WBC (Bld) [#/Vol] 7.8 10*3/uL 4.4-11.0 [facility] L506.1001on 11-22-2024 Vitamin D 25-OH 45.2 ng/mL Normal 30-100 [facility] Comment on above: Order Comment: 105-1 Result Comment: Kerline min D Status Deficiency: <20 ng/mL (50nmol/L) Insufficiency: 20-30 ng/mL (50-75 nmol/L) Sufficiency: 30-100 ng/mL (75-250 nmol/L) Toxicity: >100 ng/mL (>250 nmol/L) Performed By: #### L 501.8100, L506.1000 #### [facility] [address] [place], [address] Valproate [Mass/Vol]Ordered By: Saurabh Fernandez on 11-22-2024 Valproic Acid (Depakene) Level 20 ug/mL Low 50-100 [facility] Comment on above: Valproic Acid concen trations >100 ug/mL are potentially toxic. Valproic Acid (Depakene) Lev ladonna 11-22-2024 VALPROIC ACID 20 ug/mL Low 50-100 [facility] Comment on above: Order Comment: 105.1 Result Comment: Valp roic Acid concentrations >100 ug/mL are potentially toxic. Performed By: #### L 501.8100, L506.1000 #### [facility] [address] [place], [place], [id number] Vitamin D, 25-hydroxyOrdered By: Saurabh Fernandez on 11-22-2024 Vitamin D 25-Hydroxy 45.2 ng/mL 30-100 [facility] Comment on above: Vitamin D StatusDefi ciency: <20 ng/mL (50nmol/L)Insufficiency: 20-30 ng/mL (50-75 nmol/L)Sufficiency: 30-100 ng/mL (75-250 nmol/L)Toxicity: >100 ng/mL (>250 nmol/L) BUN/creatinine ratioOrdered By: Saurabh Fernandez on 11-17-2024 Urea nitrogen/Creatinine [Mass ratio] 27.0 mg/mg [facility]20 [facility] Basic Metabolic Profile (BMP )on 11-17-2024 BUN/CRE 27.0 RATIO [facility] Comment on above: Order Comment: 105-1 Performed By: #### L 501.8100, L506.1000 #### [facility] [address] [place], [place], [id number] GFR/1.73 sq M.predicted among non-blacks MDRD (S/P/Bld) [Vol rate/Area] 78 mL/min/{1.73_m2} Normal >60 [facility] Comment on above: Order Comment: 105- Result Comment: mL/m in/1.73m2 CKD-EPI Creatinine Equation (2020) Performed By: #### L 501.8100, L506.1000 #### [facility] [address] [place], [address] Carbon dioxide measurementOr dered By: Saurabh Fernandez on 11-17-2024 CO2 [Moles/Vol] 25.7 mmol/L Normal 22.0-29.0 [facility] Comment on above: Order Comment: 105-1 Performed By: #### L 501.8100, L506.1000 #### [facility] [address] [place], [address] Chloride measurementOrdered By: Saurabh Fernandez on 11-17-2024 Chloride [Moles/Vol] 107 mmol/L Normal 96-108 [facility] Comment on above: Order Comment: 105-1 Performed By: #### L 501.8100, L506.1000 #### [facility] [address] [place], [address] GFR/1.73 sq M.predicted layne g non-blacks MDRD (S/P/Bld) [Vol rate/Area]Ordered By: Saurabh Fernandez on 11-17-2024 Estimated GFR (MDRD) Non-Af Amer 78 >60 [facility] Comment on above: mL/min/1.73m2 CKD-EP I Creatinine Equation (2020) Serum glucose measurement (m ass/volume)Ordered By: Saurabh Fernandez on 11-17-2024 Glucose [Mass/Vol] 83 mg/dL Normal 70-99 [facility] Comment on above: Order Comment: 105-1 Performed By: #### L 501.8100, L506.1000 #### [facility] [address] [place], [address] Serum or plasma anion gap de termination (moles/volume)Ordered By: Saurabh Fernandez on 11-17-2024 Anion gap [Moles/Vol] 9 mmol/L Normal 5-15 [facility] Comment on above: Order Comment: 105-1 Performed By: #### L 501.8100, L506.1000 #### [facility] [address] [place], [address] Serum or plasma calcium tyrese urement (mass/volume)Ordered By: Saurabh Fernandez on 11-17-2024 Calcium [Mass/Vol] 8.4 mg/dL Normal 7.6-11.0 [facility] Comment on above: Order Comment: 105-1 Performed By: #### L 501.8100, L506.1000 #### [facility] [address] [place], [address] Serum or plasma creatinine m easurement (moles/volume)Ordered By: Saurabh Fernandez on 11-17-2024 Creatinine [Mass/Vol] 0.8 mg/dL Normal 0.6-1.0 [facility] Comment on above: Order Comment: 105-1 Performed By: #### L 501.8100, L506.1000 #### [facility] [address] [place], [address] Serum or plasma potassium me asurementOrdered By: Saurabh Fernandez on 11-17-2024 Potassium [Moles/Vol] 4.5 mmol/L Normal 3.3-5.1 [facility] Comment on above: Hemolysis present, R esults could be affected. Order Comment: 105-1 Result Comment: Hemo lysis present, Results??could be affected. ?? Performed By: #### L 501.8100, L506.1000 #### [facility] [address] [place], [address] Serum or plasma sodium measu rement (moles/volume)Ordered By: Saurabh Fernandez on 11-17-2024 Sodium [Moles/Vol] 141 mmol/L Normal 133-145 [facility] Comment on above: Order Comment: 105-1 Performed By: #### L 501.8100, L506.1000 #### [facility] [address] [place], [address] Serum or plasma urea nitroge n measurement (mass/volume)Ordered By: Saurabh Fernandez on 11-17-2024 Urea nitrogen [Mass/Vol] 21 mg/dL High 4- [facility] Comment on above: Order Comment: 105-1 Performed By: #### L 501.8100, L506.1000 #### [facility] [address] [place], [address] Basic Metabolic Profile (BMP )on 11-10-2024 BUN/CRE 27.0 RATIO High 10-20 [facility] Comment on above: Order Comment: 105.1 Performed By: #### L 501.8100, L506.1000 #### [facility] [address] [place], [address] CA,Total 8.7 mg/dL Normal 8.5-10.1 [facility] Comment on above: Order Comment: 105.1 Performed By: #### L 501.8100, L506.1000 #### [facility] [address] [place], [address] Chloride [Moles/Vol] 118 mmol/L High 98-107 [facility] Comment on above: Order Comment: 105.1 Performed By: #### L 501.8100, L506.1000 #### [facility] [address] [place], [address] CO2 [Moles/Vol] 31.0 mmol/L Normal 21.0-32.0 [facility] Comment on above: Order Comment: 105.1 Performed By: #### L 501.8100, L506.1000 #### [facility] [address] [place], [address] Creatinine [Mass/Vol] 0.81 mg/dL Normal 0.55-1.02 [facility] Comment on above: Order Comment: 105.1 Result Comment: The validity of the calculated GFR GFRAA in patients over 70 years has not been determined. Clinical correlation is essential. Performed By: #### L 501.8100, L506.1000 #### [facility] [address] [place], [address] EST GFR - AA 87 mL/min Normal >60 [facility] Comment on above: Order Comment: 105.1 Result Comment: Afri can [place] GFR Calc Performed By: #### L 501.8100, L506.1000 #### [facility] [address] [place], [address] GAP 2 Low 5-15 [facility] Comment on above: Order Comment: 105.1 Performed By: #### L 501.8100, L506.1000 #### [facility] [address] [place], [address] GFR/1.73 sq M.predicted among non-blacks MDRD (S/P/Bld) [Vol rate/Area] 72 mL/min/{1.73_m2} Normal >60 [facility] Comment on above: Order Comment: 105.1 Result Comment: Non- GFR Calc Performed By: #### L 501.8100, L506.1000 #### [facility] [address] [place], [address] Glucose [Mass/Vol] 96 mg/dL Normal 74-106 [facility] Comment on above: Order Comment: 105.1 Performed By: #### L 501.8100, L506.1000 #### [facility] [address] [place], [address] Potassium [Moles/Vol] 3.9 mmol/L Normal 3.5-5.1 [facility] Comment on above: Order Comment: 105.1 Performed By: #### L 501.8100, L506.1000 #### [facility] [address] [place], [address] Sodium [Moles/Vol] 151 mmol/L High 136-145 [facility] Comment on above: Order Comment: 105.1 Performed By: #### L 501.8100, [id number] #### [facility] [address] [place], [address] Urea nitrogen [Mass/Vol] 22 mg/dL High 7-18 [facility] Comment on above: Order Comment: 105.1 Performed By: #### L 501.8100, L506.1000 #### [facility] [address] [place], [address] Blood urea nitrogen (BUN)/cr eatinine ratioOrdered By: Saurabh Fernandez on 11-10-2024 Urea nitrogen/Creatinine [Mass ratio] 27.0 mg/mg High 10-20 [facility] CBC-Complete Blood Cnt No Di ffon 11-10-2024 Erythrocyte distribution width (RBC) [Ratio] 14.4 % Normal 11.6-14.6 [facility] Comment on above: Order Comment: 105.1 Performed By: #### L 501.8100, L506.1000 #### [facility] [address] [place], [address] Hematocrit (Bld) [Volume fraction] 41.3 % Normal 37-47 [facility] Comment on above: Order Comment: 105.1 Performed By: #### L 501.8100, L506.1000 #### [facility] [address] [place], [address] Hemoglobin (Bld) [Mass/Vol] 12.5 g/dL Normal 12.0-15.0 [facility] Comment on above: Order Comment: 105.1 Performed By: #### L 501.8100, L506.1000 #### [facility] [address] [place], [address] MCH (RBC) [Entitic mass] 30.9 pg Normal 27.0-32.0 [facility] Comment on above: Order Comment: 105.1 Performed By: #### L 501.8100, L506.1000 #### [facility] [address] [place], [address] MCHC (RBC) [Mass/Vol] 30.3 g/dL Low 32-36 [facility] Comment on above: Order Comment: 105.1 Performed By: #### L 501.8100, L506.1000 #### [facility] [address] [place], [address] MCV (RBC) [Entitic vol] 102.0 fL High 81-99 [facility] Comment on above: Order Comment: 105.1 Performed By: #### L 501.8100, L506.1000 #### [facility] [address] [place], [address] Platelet mean volume (Bld) [Entitic vol] 10.0 fL Normal 6.2-12.0 [facility] Comment on above: Order Comment: 105.1 Performed By: #### L 501.8100, L506.1000 #### [facility] [address] [place], [address] Platelets (Bld) [#/Vol] 351 10*3/uL Normal 150-450 [facility] Comment on above: Order Comment: 105.1 Performed By: #### L 501.8100, L506.1000 #### [facility] [address] [place], [address] RBC (Bld) [#/Vol] 4.05 10*6/uL Low 4.2-5.4 [facility] Comment on above: Order Comment: 105.1 Performed By: #### L 501.8100, L506.1000 #### [facility] [address] [place], [address] RDW SD 53.7 fl High 35.1-43.9 [facility] Comment on above: Order Comment: 105.1 Performed By: #### L 501.8100, L506.1000 #### [facility] [address] [place], [address] WBC (Bld) [#/Vol] 8.5 10*3/uL Normal 4.4-11.0 [facility] Comment on above: Order Comment: 105.1 Performed By: #### L 501.8100, L506.1000 #### [facility] [address] [place], [address] Carbon dioxide measurementOr dered By: Saurabh Fernandez on 11-10-2024 CO2 [Moles/Vol] 31.0 mmol/L 21.0-32.0 [facility] Chloride measurementOrdered By: Saurabh Fernandez on 11-10-2024 Chloride [Moles/Vol] 118 mmol/L High 98-107 [facility] Erythrocyte distribution wid th (RBC) [Ratio]Ordered By: Saurabh Fernandez on 11-10-2024 Erythrocyte distribution width (RBC) [Entitic vol] 53.7 fL High 35.1-43.9 [facility] Erythrocyte distribution wid th ratioOrdered By: Saurabh Fernandez on 11-10-2024 Erythrocyte distribution width (RBC) [Ratio] 14.4 % 11.6-14.6 [facility] Estimated glomerular filtrat ion rate (GFR) AmericanOrdered By: Saurabh Fernandez on 11-10-2024 Estimated GFR (MDRD) Amer 87 mL/min >60 [facility] Comment on above: GFR Calc Glomerular filtration rate ( GFR) estimationOrdered By: Saurabh Fernandez on 11-10-2024 Estimated GFR (MDRD) Non-Af Amer 72 mL/min >60 [facility] Comment on above: Non- GFR Calc Glucose measurementOrdered B y: Saurabh Fernandez on 11-10-2024 Glucose [Mass/Vol] 96 mg/dL 74-106 [facility] Hematocrit Auto (Bld) [Volum e fraction]Ordered By: Saurabh Fernandez on 11-10-2024 Hematocrit (Bld) [Volume fraction] 41.3 % 37-47 [facility] Hemoglobin measurementOrdere d By: Saurabh Fernandez on 11-10-2024 Hemoglobin (Bld) [Mass/Vol] 12.5 g/dL 12.0-15.0 [facility] MCV (mean corpuscular volume ) determinationOrdered By: Saurabh Fernandez on 11-10-2024 MCV (RBC) [Entitic vol] 102.0 fL High 81-99 [facility] Mean corpuscular hemoglobin (MCH) determinationOrdered By: Saurabh Fernandez on 11-10-2024 MCH (RBC) [Entitic mass] 30.9 pg 27.0-32.0 [facility] Mean corpuscular hemoglobin concentration (MCHC) determinationOrdered By: Saurabh Fernandez on 11-10-2024 MCHC (RBC) [Mass/Vol] 30.3 g/dL Low 32-36 [facility] Mean platelet volume determi nationOrdered By: Saurabh Fernandez on 11-10-2024 Platelet mean volume (Bld) [Entitic vol] 10.0 fL 6.2-12.0 [facility] Platelet countOrdered By: Nieto on 11-10-2024 Platelets (Bld) [#/Vol] 351 10*3/uL 150-450 [facility] Potassium measurementOrdered By: Saurabh Fernandez on 11-10-2024 Potassium [Moles/Vol] 3.9 mmol/L 3.5-5.1 [facility] RBC Auto (Bld) [#/Vol]Ordere d By: Saurabh Fernandez on 11-10-2024 RBC (Bld) [#/Vol] 4.05 10*6/uL Low 4.2-5.4 [facility] Serum anion gap measurementO rdered By: Saurabh Fernandez on 11-10-2024 Anion gap [Moles/Vol] 2 mmol/L Low 5-15 [facility] Serum or plasma calcium tyrese urement (mass/volume)Ordered By: Saurabh Fernandez on 11-10-2024 Calcium [Mass/Vol] 8.7 mg/dL 8.5-10.1 [facility] Serum or plasma creatinine m easurement (mass/volume)Ordered By: Saurabh Fernandez on 11-10-2024 Creatinine [Mass/Vol] 0.81 mg/dL 0.55-1.02 [facility] Comment on above: The validity of the calculated GFR & GFRAA in patients over 70 years has not been determined. Clinical correlation is essential. Serum or plasma urea nitroge n measurement (mass/volume)Ordered By: Saurabh Fernandez on 11-10-2024 Urea nitrogen [Mass/Vol] 22 mg/dL High 7-18 [facility] Sodium levelOrdered By: Saurabh Fernandez on 11-10-2024 Sodium [Moles/Vol] 151 mmol/L High 136-145 [facility] White blood cell (WBC) count Ordered By: Saurabh Fernandez on 11-10-2024 WBC (Bld) [#/Vol] 8.5 10*3/uL 4.4-11.0 [facility] Absolute neutrophil countOrd ered By: Saurabh Fernandez on 09-16-2024 Neutrophils (Bld) [#/Vol] 3.3 10*3/uL 2.0-7.7 [facility] Albumin to globulin ratioOrd ered By: Saurabh Fernandez on 09-16-2024 Albumin/Globulin [Mass ratio] 0.7 {ratio} Low 0.9-2.4 [facility] Basophil percentageOrdered B y: Saurabh Fernandez on 09-16-2024 Basophils/100 WBC (Bld) 1.0 % 0-1 [facility] Bilirubin, totalOrdered By: Saurabh Fernandez on 09-16-2024 Bilirubin [Mass/Vol] 0.50 mg/dL 0.20-1.00 [facility] Comment on above: For patients on eltr ombopag therapy, use of Dimension [place] TBIL is not recommended. Blood urea nitrogen (BUN)/cr eatinine ratioOrdered By: Saurabh Fernandez on 09-16-2024 Urea nitrogen/Creatinine [Mass ratio] 30.8 mg/mg High 10-20 [facility] CBC W/Diff, Automatedon 08-23 Absolute Lymph 3.46 X10 3/uL Normal 0.83-4.51 [facility] Comment on above: Order Comment: 105.1 Performed By: #### L 500.4100, L501.9520, L500.4050, L100.0100 #### [facility] [address] [place], [address] Absolute Neut 3.3 X10 3/uL Normal 2.0-7.7 [facility] Comment on above: Order Comment: 105.1 Performed By: #### L 500.4100, L501.9520, L500.4050, L100.0100 #### [facility] [address] [place], [address] Basophils/100 WBC (Bld) 1.0 % Normal 0-1 [facility] Comment on above: Order Comment: 105.1 Performed By: #### L 500.4100, [id number], L500.4050, L100.0100 #### [facility] [address] [place], [address] Eosinophils/100 WBC (Bld) 4.6 % Normal 0-5 [facility] Comment on above: Order Comment: 105.1 Performed By: #### L 500.4100, L501.9520, L500.4050, L100.0100 #### [facility] [address] [place], [address] Erythrocyte distribution width (RBC) [Ratio] 13.3 % Normal 11.6-14.6 [facility] Comment on above: Order Comment: 105.1 Performed By: #### L 500.4100, L501.9520, L500.4050, L100.0100 #### [facility] [address] [place], [address] Hematocrit (Bld) [Volume fraction] 46.4 % Normal 37-47 [facility] Comment on above: Order Comment: 105.1 Performed By: #### L 500.4100, [id number], L500.4050, L100.0100 #### [facility] [address] [place], [address] Hemoglobin (Bld) [Mass/Vol] 15.0 g/dL Normal 12.0-15.0 [facility] Comment on above: Order Comment: 105.1 Performed By: #### L 500.4100, [id number], L500.4050, L100.0100 #### [facility] [address] [place], [address] IG% 0.400 Normal 0.0-0.9 [facility] Comment on above: Order Comment: 105.1 Result Comment: IG% - Immature Granulocytes (promyelocytes, myelocytes and metamyelocytes) > 1% indicates that a LEFT SHIFT is Present. Performed By: #### L 500.4100, L501.9520, L500.4050, L100.0100 #### [facility] [address] [place], [address] Lymphocytes/100 WBC (Bld) 44.1 % High 19-41 [facility] Comment on above: Order Comment: 105.1 Performed By: #### L 500.4100, [id number], L500.4050, L100.0100 #### [facility] [address] [place], [address] MCH (RBC) [Entitic mass] 32.1 pg High 27.0-32.0 [facility] Comment on above: Order Comment: 105.1 Performed By: #### L 500.4100, [id number], L500.4050, L100.0100 #### [facility] [address] [place], [address] MCHC (RBC) [Mass/Vol] 32.3 g/dL Normal 32-36 [facility] Comment on above: Order Comment: 105.1 Performed By: #### L 500.4100, [id number], L500.4050, L100.0100 #### [facility] [address] [place], [address] MCV (RBC) [Entitic vol] 99.1 fL High 81-99 [facility] Comment on above: Order Comment: 105.1 Performed By: #### L 500.4100, [id number], L500.4050, L100.0100 #### [facility] [address] [place], [address] Monocytes/100 WBC (Bld) 7.7 % Normal 0-10 [facility] Comment on above: Order Comment: 105.1 Performed By: #### L 500.4100, [id number], L500.4050, L100.0100 #### [facility] [address] [place], [address] Neutrophils/100 WBC (Bld) 42.2 % Low 47-70 [facility] Comment on above: Order Comment: 105.1 Performed By: #### L 500.4100, [id number], L500.4050, L100.0100 #### [facility] [address] [place], [address] Nucleated RBC (Bld) [#/Vol] 0 10*3/uL Normal 0-5 [facility] Comment on above: Order Comment: 105.1 Performed By: #### L 500.4100, [id number], L500.4050, L100.0100 #### [facility] [address] [place], [address] Platelet mean volume (Bld) [Entitic vol] 11.6 fL Normal 6.2-12.0 [facility] Comment on above: Order Comment: 105.1 Performed By: #### L 500.4100, [id number], L500.4050, L100.0100 #### [facility] [address] [place], [address] Platelets (Bld) [#/Vol] 209 10*3/uL Normal 150-450 [facility] Comment on above: Order Comment: 105.1 Performed By: #### L 500.4100, [id number], L500.4050, L100.0100 #### [facility] [address] [place], [address] RBC (Bld) [#/Vol] 4.68 10*6/uL Normal 4.2-5.4 [facility] Comment on above: Order Comment: 105.1 Performed By: #### L 500.4100, [id number], L500.4050, L100.0100 #### [facility] [address] [place], [address] RDW SD 48.9 fl High 35.1-43.9 [facility] Comment on above: Order Comment: 105.1 Performed By: #### L 500.4100, [id number], L500.4050, L100.0100 #### [facility] [address] [place], [address] WBC (Bld) [#/Vol] 7.8 10*3/uL Normal 4.4-11.0 [facility] Comment on above: Order Comment: 105.1 Performed By: #### L 500.4100, [id number], L500.4050, L100.0100 #### [facility] [address] [place], [address] Carbon dioxide measurementOr dered By: Saurabh Fernandez on 09-16-2024 CO2 [Moles/Vol] 31.0 mmol/L 21.0-32.0 [facility] Chloride measurementOrdered By: Saurabh Fernandez on 09-16-2024 Chloride [Moles/Vol] 109 mmol/L High 98-107 [facility] Comprehensive Metabolic Prof ilon 09-16-2024 Albumin [Mass/Vol] 2.8 g/dL Low 3.2-5.0 [facility] Comment on above: Order Comment: 105.1 Performed By: #### L 500.4100, [id number], L500.4050, L100.0100 #### [facility] [address] [place], [address] Albumin/Globulin [Mass ratio] 0.7 {ratio} Low 0.9-2.4 [facility] Comment on above: Order Comment: 105.1 Performed By: #### L 500.4100, [id number], L500.4050, L100.0100 #### [facility] [address] [place], [address] ALK P 69 U/L Normal 45-117 [facility] Comment on above: Order Comment: 105.1 Performed By: #### L 500.4100, [id number], L500.4050, L100.0100 #### [facility] [address] [place], [address] ALT [Catalytic activity/Vol] 21 U/L Normal 13-56 [facility] Comment on above: Order Comment: 105.1 Performed By: #### L 500.4100, [id number], L500.4050, L100.0100 #### [facility] [address] [place], [address] AST [Catalytic activity/Vol] 17 U/L Normal 15-37 [facility] Comment on above: Order Comment: 105.1 Performed By: #### L 500.4100, [id number], L500.4050, L100.0100 #### [facility] [address] [place], [address] Bilirubin [Mass/Vol] 0.50 mg/dL Normal 0.20-1.00 [facility] Comment on above: Order Comment: 105.1 Result Comment: For patients on eltrombopag therapy, use of Dimension [place] TBIL is not recommended. Performed By: #### L 500.4100, [id number], L500.4050, L100.0100 #### [facility] [address] [place], [address] BUN/CRE 30.8 RATIO High 10-20 [facility] Comment on above: Order Comment: 105.1 Performed By: #### L 500.4100, [id number], L500.4050, L100.0100 #### [facility] [address] [place], [address] CA,Total 8.7 mg/dL Normal 8.5-10.1 [facility] Comment on above: Order Comment: 105.1 Performed By: #### L 500.4100, [id number], L500.4050, L100.0100 #### [facility] [address] [place], [address] Chloride [Moles/Vol] 109 mmol/L High 98-107 [facility] Comment on above: Order Comment: 105.1 Performed By: #### L 500.4100, [id number], L500.4050, L100.0100 #### [facility] [address] [place], [address] CO2 [Moles/Vol] 31.0 mmol/L Normal 21.0-32.0 [facility] Comment on above: Order Comment: 105.1 Performed By: #### L 500.4100, [id number], L500.4050, L100.0100 #### [facility] [address] [place], [address] Creatinine [Mass/Vol] 1.04 mg/dL High 0.55-1.02 [facility] Comment on above: Order Comment: 105.1 Result Comment: The validity of the calculated GFR GFRAA in patients over 70 years has not been determined. Clinical correlation is essential. Performed By: #### L 500.4100, L501.9520, L500.4050, L100.0100 #### [facility] [address] [place], [address] EST GFR - AA 65 mL/min Normal >60 [facility] Comment on above: Order Comment: 105.1 Result Comment: Afri can Anguillan GFR Calc Performed By: #### L 500.4100, [id number], L500.4050, L100.0100 #### [facility] [address] [place], [address] GAP 2 Low 5-15 [facility] Comment on above: Order Comment: 105.1 Performed By: #### L 500.4100, L501.9520, L500.4050, L100.0100 #### [facility] [address] [place], [address] GFR/1.73 sq M.predicted among non-blacks MDRD (S/P/Bld) [Vol rate/Area] 54 mL/min/{1.73_m2} Low >60 [facility] Comment on above: Order Comment: 105.1 Result Comment: Non- GFR Calc Performed By: #### L 500.4100, L501.9520, L500.4050, L100.0100 #### [facility] [address] [place], [address] Globulin (S) [Mass/Vol] 4.0 g/dL Normal 2.2-4.2 [facility] Comment on above: Order Comment: 105.1 Performed By: #### L 500.4100, L501.9520, L500.4050, L100.0100 #### [facility] [address] [place], [address] Glucose [Mass/Vol] 89 mg/dL Normal 74-106 [facility] Comment on above: Order Comment: 105.1 Performed By: #### L 500.4100, [id number], L500.4050, L100.0100 #### [facility] [address] [place], [address] Potassium [Moles/Vol] 4.4 mmol/L Normal 3.5-5.1 [facility] Comment on above: Order Comment: 105.1 Performed By: #### L 500.4100, [id number], L500.4050, L100.0100 #### [facility] [address] [place], [address] Sodium [Moles/Vol] 142 mmol/L Normal 136-145 [facility] Comment on above: Order Comment: 105.1 Performed By: #### L 500.4100, [id number], L500.4050, L100.0100 #### [facility] [address] [place], [address] T PROT 6.8 g/dL Normal 6.4-8.2 [facility] Comment on above: Order Comment: 105.1 Performed By: #### L 500.4100, L501.9520, L500.4050, L100.0100 #### [facility] [address] [place], [address] Urea nitrogen [Mass/Vol] 32 mg/dL High 7-18 [facility] Comment on above: Order Comment: 105.1 Performed By: #### L 500.4100, L501.9520, L500.4050, L100.0100 #### [facility] [address] [place], [address] Eosinophil percentageOrdered By: Saurabh Fernandez on 09-16-2024 Eosinophils/100 WBC (Bld) 4.6 % 0-5 [facility] Erythrocyte distribution wid th (RBC) [Ratio]Ordered By: Saurabh Fernandez on 09-16-2024 Erythrocyte distribution width (RBC) [Entitic vol] 48.9 fL High 35.1-43.9 [facility] Erythrocyte distribution wid th ratioOrdered By: Saurabh Fernandez on 09-16-2024 Erythrocyte distribution width (RBC) [Ratio] 13.3 % 11.6-14.6 [facility] Estimated glomerular filtrat ion rate (GFR) AmericanOrdered By: Saurabh Fernandez on 09-16-2024 Estimated GFR (MDRD) Amer 65 mL/min >60 [facility] Comment on above: GFR Calc Glomerular filtration rate ( GFR) estimationOrdered By: Saurabh Fernandez on 09-16-2024 Estimated GFR (MDRD) Non-Af Amer 54 mL/min Low >60 [facility] Comment on above: Non- GFR Calc Glucose measurementOrdered B y: Saurabh Fernandez on 09-16-2024 Glucose [Mass/Vol] 89 mg/dL 74-106 [facility] Hematocrit Auto (Bld) [Volum e fraction]Ordered By: Saurabh Fernandez on 09-16-2024 Hematocrit (Bld) [Volume fraction] 46.4 % 37-47 [facility] Hemoglobin measurementOrdere d By: Saurabh Fernandez on 09-16-2024 Hemoglobin (Bld) [Mass/Vol] 15.0 g/dL 12.0-15.0 [facility] High density lipoprotein (HD L) measurementOrdered By: Saurabh Fernandez on 09-16-2024 Cholesterol in HDL [Mass/Vol] 52 mg/dL >40 [facility] Comment on above: The drugs N-Acetylcy steine and Metamizole may falsely depress this assay. Reference Range HDL <40 mg/dL Low HDL Cholesterol HDL >or= 60 mg/dL High HDL Cholesterol Immature granulocytes/100 WB C Auto (Bld)Ordered By: Saurabh Fernandez on 09-16-2024 Immature granulocytes/100 WBC (Bld) 0.400 % 0.0-0.9 [facility] Comment on above: IG% - Immature Granu locytes (promyelocytes, myelocytes and metamyelocytes) > 1% indicates that a LEFT SHIFT is Present. Laboratory - Chemistry and C hemistry - challengeOrdered By: Saurabh Fernandez on 09-16-2024 AST [Catalytic activity/Vol] 17 U/L 15-37 [facility] Lipid Profileon 09-16-2024 Cholesterol [Mass/Vol] 190 mg/dL Normal 200 [facility] Comment on above: Order Comment: 105.1 Result Comment: <200 mg/dL Desirable 200-240 mg/dL Borderline >240 mg/dL High Risk Performed By: #### L 500.4100, L501.9520, L500.4050, L100.0100 #### [facility] [address] [place], [place], [address] Cholesterol in HDL [Mass/Vol] 52 mg/dL Normal [facility] Comment on above: Order Comment: 105.1 Result Comment: The drugs N-Acetylcysteine and Metamizole may falsely depress this assay. Reference Range HDL <40 mg/dL Low HDL Cholesterol HDL >or= 60 mg/dL High HDL Cholesterol Performed By: #### L 500.4100, L501.9520, L500.4050, L100.0100 #### [facility] [address] [place], [address] Cholesterol in LDL [Mass/Vol] 113 mg/dL Normal 0-130 [facility] Comment on above: Order Comment: 105.1 Performed By: #### L 500.4100, L501.9520, L500.4050, L100.0100 #### [facility] [address] [place], [address] Cholesterol in VLDL [Mass/Vol] 25 mg/dL Normal 5-40 [facility] Comment on above: Order Comment: 105.1 Performed By: #### L 500.4100, L501.9520, L500.4050, L100.0100 #### [facility] [address] [place], [address] Triglyceride [Mass/Vol] 125 mg/dL Normal [facility] Comment on above: Order Comment: 105.1 Result Comment: The drugs N-Acetylcysteine and Metamizole may falsely depress this assay. Serum Triglycerides Reference Interval Normal <150 mg/dL Borderline high 150 - 199 mg/dL High 200 - 499 mg/dL Very High > or = 500 mg/dL Performed By: #### L 500.4100, L501.9520, L500.4050, L100.0100 #### [facility] [address] [place], [address] Low density lipoprotein (LDL ) cholesterol measurementOrdered By: Saurabh Fernandez on 09-16-2024 Cholesterol in LDL [Mass/Vol] 113 mg/dL 0-130 [facility] Lymphocytes Auto (Unsp spec) [#/Vol]Ordered By: Saurabh Fernandez on 09-16-2024 Lymphocytes (Bld) [#/Vol] 3.46 10*3/uL 0.83-4.51 [facility] Lymphocytes/100 WBC Auto (Un sp spec)Ordered By: Saurabh Fernandez on 09-16-2024 Lymphocytes/100 WBC (Bld) 44.1 % High 19-41 [facility] MCV (mean corpuscular volume ) determinationOrdered By: Saurabh Fernandez on 09-16-2024 MCV (RBC) [Entitic vol] 99.1 fL High 81-99 [facility] Mean corpuscular hemoglobin (MCH) determinationOrdered By: Saurabh Fernandez on 09-16-2024 MCH (RBC) [Entitic mass] 32.1 pg High 27.0-32.0 [facility] Mean corpuscular hemoglobin concentration (MCHC) determinationOrdered By: Saurabh Fernandez on 09-16-2024 MCHC (RBC) [Mass/Vol] 32.3 g/dL 32-36 [facility] Mean platelet volume determi nationOrdered By: Saurabh Fernandez on 09-16-2024 Platelet mean volume (Bld) [Entitic vol] 11.6 fL 6.2-12.0 [facility] Monocyte percentageOrdered B y: Saurabh Fernandez on 09-16-2024 Monocytes/100 WBC (Bld) 7.7 % 0-10 [facility] Neutrophil percentageOrdered By: Saurabh Fernandez on 09-16-2024 Neutrophils/100 WBC (Bld) 42.2 % Low 47-70 [facility] Nucleated red blood cell per centageOrdered By: Saurabh Fernandez on 09-16-2024 Nucleated RBC/100 WBC (Bld) [Ratio] 0 % 0-5 [facility] Platelet countOrdered By: Nieto on 09-16-2024 Platelets (Bld) [#/Vol] 209 10*3/uL 150-450 [facility] Potassium measurementOrdered By: Saurabh Fernandez on 09-16-2024 Potassium [Moles/Vol] 4.4 mmol/L 3.5-5.1 [facility] RBC Auto (Bld) [#/Vol]Ordere d By: Saurabh Fernandez on 09-16-2024 RBC (Bld) [#/Vol] 4.68 10*6/uL 4.2-5.4 [facility] Serum anion gap measurementO rdered By: Saurabh Fernandez on 09-16-2024 Anion gap [Moles/Vol] 2 mmol/L Low 5-15 [facility] Serum globulin measurementOr dered By: Saurabh Fernandez on 09-16-2024 Globulin (S) [Mass/Vol] 4.0 g/dL 2.2-4.2 [facility] Serum or plasma alanine macedo otransferase (ALT) measurementOrdered By: Saurabh Fernandez on 09-16-2024 ALT [Catalytic activity/Vol] 21 U/L 13-56 [facility] Serum or plasma albumin tyrese urement (mass/volume)Ordered By: Saurabh Fernandez on 09-16-2024 Albumin [Mass/Vol] 2.8 g/dL Low 3.2-5.0 [facility] Serum or plasma alkaline elia sphatase measurementOrdered By: Saurabh Fernandez on 09-16-2024 ALP [Catalytic activity/Vol] 69 U/L 45-117 [facility] Serum or plasma calcium tyrese urement (mass/volume)Ordered By: Saurabh Fernandez on 09-16-2024 Calcium [Mass/Vol] 8.7 mg/dL 8.5-10.1 [facility] Serum or plasma cholesterol measurement (mass/volume)Ordered By: Saurabh Fernandez on 09-16-2024 Cholesterol [Mass/Vol] 190 mg/dL <200 [facility] Comment on above: <200 mg/dL Desirable 200-240 mg/dL Borderline >240 mg/dL High Risk Serum or plasma creatinine m easurement (mass/volume)Ordered By: Saurabh Fernandez on 09-16-2024 Creatinine [Mass/Vol] 1.04 mg/dL High 0.55-1.02 [facility] Comment on above: The validity of the calculated GFR & GFRAA in patients over 70 years has not been determined. Clinical correlation is essential. Serum or plasma urea nitroge n measurement (mass/volume)Ordered By: Saurabh Fernandez on 09-16-2024 Urea nitrogen [Mass/Vol] 32 mg/dL High 7-18 [facility] Sodium levelOrdered By: Saurabh Fernandez on 09-16-2024 Sodium [Moles/Vol] 142 mmol/L 136-145 [facility] TSH QnOrdered By: Saurabh handy on 09-16-2024 Thyroid Stimulating Hormone (TSH) 2.080 uIU/mL 0.358-3.740 [facility] Thyroid Stim Hormone (TSH)on 09-16-2024 TSH 2.080 uIU/mL Normal 0.358-3.740 [facility] Comment on above: Order Comment: 105.1 Performed By: #### L 500.4100, L501.9520, L500.4050, L100.0100 #### [facility] [address] [place], [address] Total proteinOrdered By: Ambreen Fernandez on 09-16-2024 Protein [Mass/Vol] 6.8 g/dL 6.4-8.2 [facility] Triglycerides measurementOrd ered By: Saurabh Fernandez on 09-16-2024 Triglyceride [Mass/Vol] 125 mg/dL <199 [facility] Comment on above: The drugs N-Acetylcy steine and Metamizole may falsely depress this assay.Serum Triglycerides Reference Interval Normal <150 mg/dL Borderline high 150 - 199 mg/dL High 200 - 499 mg/dL Very High > or = 500 mg/dL Very low density lipoprotein (VLDL) cholesterol measurementOrdered By: Saurabh Fernandez on 09-16-2024 VLDL Cholesterol 25 mg/dL 5-40 [facility] White blood cell (WBC) count Ordered By: Saurabh Fernandez on 09-16-2024 WBC (Bld) [#/Vol] 7.8 10*3/uL 4.4-11.0 [facility] 35-LO-Hybjxyt DOrdered By: Migue Fernandez on 08-30-2024 Vitamin D 25-Hydroxy 69.9 ng/mL [facility] Comment on above: Vitamin D 25(OH) Sta tus Range Deficiency <20 ng/mL (50nmol/L) Insufficiency 20 - 30 ng/mL (50 - 75 nmol/L) Sufficiency 30 - 100 ng/mL (75 - 250 nmol/L) Toxicity >100 ng/mL (>250 nmol/L) Valproate levelOrdered By: Migue Fernandez on 08-30-2024 Valproic Acid (Depakene) Level 26 ug/mL Low 50-100 [facility] Valproic Acid (Depakene) Lev ladonna 08-30-2024 VALPROIC ACID 26 ug/mL Low 50-100 [facility] Comment on above: Order Comment: 105-1 Performed By: #### L 506.1000, L501.8100 #### [facility] [address] [place], [address] Vitamin D,25 Hydroxyon 08-30 Vitamin D 25-OH 69.9 ng/mL Normal [facility] Comment on above: Order Comment: 105- Result Comment: Kerline min D 25(OH) Status Range Deficiency <20 ng/mL (50nmol/L) Insufficiency 20 - 30 ng/mL (50 - 75 nmol/L) Sufficiency 30 - 100 ng/mL (75 - 250 nmol/L) Toxicity >100 ng/mL (>250 nmol/L) Performed By: #### L 506.1000, L501.8100 #### [facility] [address] [place], [address] Thyroid Stim Hormone (TSH)on 08-09-2024 TSH 1.590 uIU/mL Normal 0.358-3.740 [facility] Comment on above: Order Comment: 105-1 Performed By: #### L 501.8100, L506.1000 #### [facility] [address] [place], [address] CBC W/Diff, Automatedon 10-0 Absolute Lymph 3.04 X10 3/uL Normal 0.83-4.51 [facility] Comment on above: Order Comment: 105-1 Performed By: #### L 501.8100, L506.1000 #### [facility] [address] [place], [address] Absolute Neut 3.0 X10 3/uL Normal 2.0-7.7 [facility] Comment on above: Order Comment: 105-1 Performed By: #### L 501.8100, L506.1000 #### [facility] [address] [place], [address] Basophils/100 WBC (Bld) 0.6 % Normal 0-1 [facility] Comment on above: Order Comment: 105-1 Performed By: #### L 501.8100, L506.1000 #### [facility] [address] [place], [address] Eosinophils/100 WBC (Bld) 4.4 % Normal 0-5 [facility] Comment on above: Order Comment: 105-1 Performed By: #### L 501.8100, [id number] #### [facility] [address] [place], [address] Erythrocyte distribution width (RBC) [Ratio] 13.1 % Normal 11.6-14.6 [facility] Comment on above: Order Comment: 105-1 Performed By: #### L 501.8100, [id number] #### [facility] [address] [place], [address] Hematocrit (Bld) [Volume fraction] 44.5 % Normal 37-47 [facility] Comment on above: Order Comment: 105-1 Performed By: #### L 501.8100, [id number] #### [facility] [address] [place], [address] Hemoglobin (Bld) [Mass/Vol] 14.0 g/dL Normal 12.0-15.0 [facility] Comment on above: Order Comment: 105-1 Performed By: #### L 501.8100, L506.1000 #### [facility] [address] [place], [address] IG% 0.300 Normal 0.0-0.9 [facility] Comment on above: Order Comment: 105-1 Result Comment: IG% - Immature Granulocytes (promyelocytes, myelocytes and metamyelocytes) > 1% indicates that a LEFT SHIFT is Present. Performed By: #### L 501.8100, L506.1000 #### [facility] [facility] [address] [place], [address] Lymphocytes/100 WBC (Bld) 43.3 % High 19-41 [facility] Comment on above: Order Comment: 105-1 Performed By: #### L 501.8100, L506.1000 #### [facility] [address] [place], [address] MCH (RBC) [Entitic mass] 31.5 pg Normal 27.0-32.0 [facility] Comment on above: Order Comment: 105-1 Performed By: #### L 501.8100, L506.1000 #### [facility] [address] [place], [address] MCHC (RBC) [Mass/Vol] 31.5 g/dL Low 32-36 [facility] Comment on above: Order Comment: 105-1 Performed By: #### L 501.8100, [id number] #### [facility] [address] [place], [address] MCV (RBC) [Entitic vol] 100.0 fL High 81-99 [facility] Comment on above: Order Comment: 105-1 Performed By: #### L 501.8100, L506.1000 #### [facility] [address] [place], [address] Monocytes/100 WBC (Bld) 8.3 % Normal 0-10 [facility] Comment on above: Order Comment: 105-1 Performed By: #### L 501.8100, L506.1000 #### [facility] [address] [place], [address] Neutrophils/100 WBC (Bld) 43.1 % Low 47-70 [facility] Comment on above: Order Comment: 105-1 Performed By: #### L 501.8100, L506.1000 #### [facility] [address] [place], [address] Nucleated RBC (Bld) [#/Vol] 0 10*3/uL Normal 0-5 [facility] Comment on above: Order Comment: 105-1 Performed By: #### L 501.8100, L506.1000 #### [facility] [address] [place], [address] Platelet mean volume (Bld) [Entitic vol] 11.5 fL Normal 6.2-12.0 [facility] Comment on above: Order Comment: 105-1 Performed By: #### L 501.8100, L506.1000 #### [facility] [address] [place], [address] Platelets (Bld) [#/Vol] 203 10*3/uL Normal 150-450 [facility] Comment on above: Order Comment: 105-1 Performed By: #### L 501.8100, [id number] #### [facility] [address] [place], [address] RBC (Bld) [#/Vol] 4.45 10*6/uL Normal 4.2-5.4 [facility] Comment on above: Order Comment: 105-1 Performed By: #### L 501.8100, L506.1000 #### [facility] [address] [place], [address] RDW SD 48.5 fl High 35.1-43.9 [facility] Comment on above: Order Comment: 105-1 Performed By: #### L 501.8100, L506.1000 #### [facility] [address] [place], [address] WBC (Bld) [#/Vol] 7.0 10*3/uL Normal 4.4-11.0 [facility] Comment on above: Order Comment: 105-1 Performed By: #### L 501.8100, L506.1000 #### [facility] [address] [place], [address] Comprehensive Metabolic Prof ilon 06-25-2024 Albumin [Mass/Vol] 2.7 g/dL Low 3.2-5.0 [facility] Comment on above: Order Comment: 105-1 Performed By: #### L 501.8100, L506.1000 #### [facility] [address] [place], [address] Albumin/Globulin [Mass ratio] 0.7 {ratio} Low 0.9-2.4 [facility] Comment on above: Order Comment: 105-1 Performed By: #### L 501.8100, L506.1000 #### [facility] [address] [place], [address] ALK P 73 U/L Normal 45-117 [facility] Comment on above: Order Comment: 105-1 Performed By: #### L 501.8100, L506.1000 #### [facility] [address] [place], [address] ALT [Catalytic activity/Vol] 17 U/L Normal 13-56 [facility] Comment on above: Order Comment: 105-1 Performed By: #### L 501.8100, L506.1000 #### [facility] [address] [place], [address] AST [Catalytic activity/Vol] 17 U/L Normal 15-37 [facility] Comment on above: Order Comment: 105-1 Performed By: #### L 501.8100, L506.1000 #### [facility] [address] [place], [address] Bilirubin [Mass/Vol] 0.80 mg/dL Normal 0.20-1.00 [facility] Comment on above: Order Comment: 105-1 Result Comment: For patients on eltrombopag therapy, use of Dimension Haz[place] TBIL is not recommended. Performed By: #### L 501.8100, L506.1000 #### [facility] [address] [place], [address] BUN/CRE 21.4 RATIO High 10-20 [facility] Comment on above: Order Comment: 105-1 Performed By: #### L 501.8100, L506.1000 #### [facility] [address] [place], [address] CA,Total 8.8 mg/dL Normal 8.5-10.1 [facility] Comment on above: Order Comment: 105-1 Performed By: #### L 501.8100, L506.1000 #### [facility] [address] [place], [address] Chloride [Moles/Vol] 109 mmol/L High 98-107 [facility] Comment on above: Order Comment: 105-1 Performed By: #### L 501.8100, L506.1000 #### [facility] [address] [place], [address] CO2 [Moles/Vol] 30.0 mmol/L Normal 21.0-32.0 [facility] Comment on above: Order Comment: 105-1 Performed By: #### L 501.8100, L506.1000 #### [facility] [address] [place], [address] Creatinine [Mass/Vol] 0.75 mg/dL Normal 0.55-1.02 [facility] Comment on above: Order Comment: 105-1 Result Comment: The validity of the calculated GFR GFRAA in patients over 70 years has not been determined. Clinical correlation is essential. Performed By: #### L 501.8100, L506.1000 #### [facility] [address] [place], [address] EST GFR - AA 96 mL/min Normal >60 [facility] Comment on above: Order Comment: 105-1 Result Comment: Afri can Anguillan GFR Calc Performed By: #### L 501.8100, L506.1000 #### [facility] [address] [place], [address] GAP 4 Low 5-15 [facility] Comment on above: Order Comment: 105-1 Performed By: #### L 501.8100, L506.1000 #### [facility] [address] [place], [address] GFR/1.73 sq M.predicted among non-blacks MDRD (S/P/Bld) [Vol rate/Area] 79 mL/min/{1.73_m2} Normal >60 [facility] Comment on above: Order Comment: 105-1 Result Comment: Non- GFR Calc Performed By: #### L 501.8100, L506.1000 #### [facility] [address] [place], [address] Globulin (S) [Mass/Vol] 3.7 g/dL Normal 2.2-4.2 [facility] Comment on above: Order Comment: 105-1 Performed By: #### L 501.8100, L506.1000 #### [facility] [address] [place], [address] Glucose [Mass/Vol] 82 mg/dL Normal 74-106 [facility] Comment on above: Order Comment: 105-1 Performed By: #### L 501.8100, L506.1000 #### [facility] [address] [place], [address] Potassium [Moles/Vol] 4.0 mmol/L Normal 3.5-5.1 [facility] Comment on above: Order Comment: 105-1 Performed By: #### L 501.8100, L506.1000 #### [facility] [address] [place], [address] Sodium [Moles/Vol] 143 mmol/L Normal 136-145 [facility] Comment on above: Order Comment: 105-1 Performed By: #### L 501.8100, L506.1000 #### [facility] [address] [place], [address] T PROT 6.4 g/dL Normal 6.4-8.2 [facility] Comment on above: Order Comment: 105-1 Performed By: #### L 501.8100, L506.1000 #### [facility] [address] [place], [address] Urea nitrogen [Mass/Vol] 16 mg/dL Normal 7-18 [facility] Comment on above: Order Comment: 105-1 Performed By: #### L 501.8100, L506.1000 #### [facility] [address] [place], [address] Lipid Profileon 06-25-2024 Cholesterol [Mass/Vol] 192 mg/dL Normal 200 [facility] Comment on above: Order Comment: 105- Result Comment: <200 mg/dL Desirable 200-240 mg/dL Borderline >240 mg/dL High Risk Performed By: #### L 501.8100, L506.1000 #### [facility] [address] [place], [address] Cholesterol in HDL [Mass/Vol] 47 mg/dL Normal [facility] Comment on above: Order Comment: 105- Result Comment: The drugs N-Acetylcysteine and Metamizole may falsely depress this assay. Reference Range HDL <40 mg/dL Low HDL Cholesterol HDL >or= 60 mg/dL High HDL Cholesterol Performed By: #### L 501.8100, L506.1000 #### [facility] [address] [place], [address] Cholesterol in LDL [Mass/Vol] 107 mg/dL Normal 0-130 [facility] Comment on above: Order Comment: 105-1 Performed By: #### L 501.8100, L506.1000 #### [facility] [address] [place], [address] Cholesterol in VLDL [Mass/Vol] 38 mg/dL Normal 5-40 [facility] Comment on above: Order Comment: 105-1 Performed By: #### L 501.8100, L506.1000 #### [facility] [address] [place], [address] Triglyceride [Mass/Vol] 188 mg/dL Normal [facility] Comment on above: Order Comment: 105-1 Result Comment: The drugs N-Acetylcysteine and Metamizole may falsely depress this assay. Serum Triglycerides Reference Interval Normal <150 mg/dL Borderline high 150 - 199 mg/dL High 200 - 499 mg/dL Very High > or = 500 mg/dL Performed By: #### L 501.8100, L506.1000 #### [facility] [address] [place], [address] Thyroid Stim Hormone (TSH)on 06-25-2024 TSH 4.290 uIU/mL High 0.358-3.740 [facility] Comment on above: Order Comment: 105-1 Performed By: #### L 501.8100, L506.1000 #### [facility] [address] [place], [address] CBC W/Diff, Automatedon 10-0 Absolute Neut Normal 2.0-7.7 [facility] Comment on above: Order Comment: 105-1 Result Comment: This specimen has been REJECTED due to Laboratory criteria: Quanity Not Sufficient. MYEAGER has been notified of need of recollection. 06/24/24899 Selam Esposito Performed By: #### L 501.8100, L506.1000 #### [facility] [address] [place], [address] HCT Normal 37-47 [facility] Comment on above: Order Comment: 105-1 Result Comment: This specimen has been REJECTED due to Laboratory criteria: Quanity Not Sufficient. MYEAGER has been notified of need of recollection. 06/24/24899 Selam Esposito Performed By: #### L 501.8100, L506.1000 #### [facility] [address] [place], [address] HGB Normal 12.0-15.0 [facility] Comment on above: Order Comment: 105-1 Result Comment: This specimen has been REJECTED due to Laboratory criteria: Quanity Not Sufficient. MYEAGER has been notified of need of recollection. 06/24/24899 Selam Esposito Performed By: #### L 501.8100, L506.1000 #### [facility] [address] [place], [address] MCH Normal 27.0-32.0 [facility] Comment on above: Order Comment: 105-1 Result Comment: This specimen has been REJECTED due to Laboratory criteria: Quanity Not Sufficient. MYEAGER has been notified of need of recollection. 06/24/24899 Selam Esposito Performed By: #### L 501.8100, L506.1000 #### [facility] [address] [place], [address] MCHC Normal 32-36 [facility] Comment on above: Order Comment: 105-1 Result Comment: This specimen has been REJECTED due to Laboratory criteria: Quanity Not Sufficient. MYEAGER has been notified of need of recollection. 06/24/24899 Selam Esposito Performed By: #### L 501.8100, L506.1000 #### [facility] [address] [place], [address] MCV Normal 81-99 [facility] Comment on above: Order Comment: 105-1 Result Comment: This specimen has been REJECTED due to Laboratory criteria: Quanity Not Sufficient. MYEAGER has been notified of need of recollection. 06/24/24899 Selam Esposito Performed By: #### L 501.8100, L506.1000 #### [facility] [address] [place], [address] NEUT% Normal 47-70 [facility] Comment on above: Order Comment: 105-1 Result Comment: This specimen has been REJECTED due to Laboratory criteria: Quanity Not Sufficient. MYEAGER has been notified of need of recollection. 06/24/24899 Selam Esposito Performed By: #### L 501.8100, L506.1000 #### [facility] [address] [place], [address] PLT Normal 150-450 [facility] Comment on above: Order Comment: 105-1 Result Comment: This specimen has been REJECTED due to Laboratory criteria: Quanity Not Sufficient. MYEAGER has been notified of need of recollection. 06/24/24899 Selam Esposito Performed By: #### L 501.8100, L506.1000 #### [facility] [address] [place], [address] RBC Normal 4.2-5.4 [facility] Comment on above: Order Comment: 105-1 Result Comment: This specimen has been REJECTED due to Laboratory criteria: Quanity Not Sufficient. MYEAGER has been notified of need of recollection. 06/24/24899 Selam Esposito Performed By: #### L 501.8100, L506.1000 #### [facility] [address] [place], [address] RDW CV Normal 11.6-14.6 [facility] Comment on above: Order Comment: 105-1 Result Comment: This specimen has been REJECTED due to Laboratory criteria: Quanity Not Sufficient. MYEAGER has been notified of need of recollection. 06/24/24899 Selam Esposito Performed By: #### L 501.8100, L506.1000 #### [facility] [address] [place], [address] RDW SD Normal 35.1-43.9 [facility] Comment on above: Order Comment: 105-1 Result Comment: This specimen has been REJECTED due to Laboratory criteria: Quanity Not Sufficient. MYEAGER has been notified of need of recollection. 06/24/24899 Selam Esposito Performed By: #### L 501.8100, L506.1000 #### [facility] [address] [place], [address] WBC Normal 4.4-11.0 [facility] Comment on above: Order Comment: 105-1 Result Comment: This specimen has been REJECTED due to Laboratory criteria: Quanity Not Sufficient. MARY has been notified of need of recollection. 06/24/24 0900 Selam Esposito Performed By: #### L 501.8100, L506.1000 #### [facility] [address] [place], [address] Comprehensive Metabolic Prof ozzy 06-24-2024 ALB Normal 3.2-5.0 [facility] Comment on above: Order Comment: 105-1 Result Comment: COUL D NOT OBTAIN ENOUGH BLOOD Performed By: #### L 501.8100, L506.1000 #### [facility] [address] [place], [address] ALK P Normal 45-117 [facility] Comment on above: Order Comment: 105-1 Result Comment: COUL D NOT OBTAIN ENOUGH BLOOD Performed By: #### L 501.8100, L506.1000 #### [facility] [address] [place], [address] ALT Normal 13-56 [facility] Comment on above: Order Comment: 105-1 Result Comment: COUL D NOT OBTAIN ENOUGH BLOOD Performed By: #### L 501.8100, L506.1000 #### [facility] [address] [place], [address] AST Normal 15-37 [facility] Comment on above: Order Comment: 105-1 Result Comment: COUL D NOT OBTAIN ENOUGH BLOOD Performed By: #### L 501.8100, L506.1000 #### [facility] [address] [place], [address] BUN Normal 7-18 [facility] Comment on above: Order Comment: 105-1 Result Comment: COUL D NOT OBTAIN ENOUGH BLOOD Performed By: #### L 501.8100, L506.1000 #### [facility] [address] [place], [address] BUN/CRE Normal 10-20 [facility] Comment on above: Order Comment: 105-1 Result Comment: COUL D NOT OBTAIN ENOUGH BLOOD Performed By: #### L 501.8100, L506.1000 #### [facility] [address] [place], [address] CA,Total Normal 8.5-10.1 [facility] Comment on above: Order Comment: 105-1 Result Comment: COUL D NOT OBTAIN ENOUGH BLOOD Performed By: #### L 501.8100, L506.1000 #### [facility] [address] [place], [address] CL Normal 98-107 [facility] Comment on above: Order Comment: 105-1 Result Comment: COUL D NOT OBTAIN ENOUGH BLOOD Performed By: #### L 501.8100, L506.1000 #### [facility] [address] [place], [address] CO2 Normal 21.0-32.0 [facility] Comment on above: Order Comment: 105-1 Result Comment: COUL D NOT OBTAIN ENOUGH BLOOD Performed By: #### L 501.8100, L506.1000 #### [facility] [address] [place], [address] CREAT,SERUM Normal 0.55-1.02 [facility] Comment on above: Order Comment: 105-1 Result Comment: COUL D NOT OBTAIN ENOUGH BLOOD Performed By: #### L 501.8100, L506.1000 #### [facility] [address] [place], [address] EST GFR Normal >60 [facility] Comment on above: Order Comment: 105-1 Result Comment: COUL D NOT OBTAIN ENOUGH BLOOD Performed By: #### L 501.8100, L506.1000 #### [facility] [address] [place], [address] EST GFR - AA Normal >60 [facility] Comment on above: Order Comment: 105-1 Result Comment: COUL D NOT OBTAIN ENOUGH BLOOD Performed By: #### L 501.8100, L506.1000 #### [facility] [address] [place], [address] GAP Normal 5-15 [facility] Comment on above: Order Comment: 105-1 Result Comment: COUL D NOT OBTAIN ENOUGH BLOOD Performed By: #### L 501.8100, L506.1000 #### [facility] [address] [place], [address] GLU Normal 74-106 [facility] Comment on above: Order Comment: 105- Result Comment: COUL D NOT OBTAIN ENOUGH BLOOD Performed By: #### L 501.8100, L506.1000 #### [facility] [address] [place], [address] Potassium Normal 3.5-5.1 [facility] Comment on above: Order Comment: 105- Result Comment: COUL D NOT OBTAIN ENOUGH BLOOD Performed By: #### L 501.8100, L506.1000 #### [facility] [address] [place], [address] T BILI Normal 0.20-1.00 [facility] Comment on above: Order Comment: 105-1 Result Comment: COUL D NOT OBTAIN ENOUGH BLOOD Performed By: #### L 501.8100, L506.1000 #### [facility] [address] [place], [address] T PROT Normal 6.4-8.2 [facility] Comment on above: Order Comment: 105-1 Result Comment: COUL D NOT OBTAIN ENOUGH BLOOD Performed By: #### L 501.8100, [id number] #### [facility] [address] [place], [address] Comprehensive Metabolic Profil Normal 136-145 [facility] Comment on above: Order Comment: 105-1 Result Comment: COUL D NOT OBTAIN ENOUGH BLOOD Performed By: #### L 501.8100, [id number] #### [facility] [address] [place], [address] Lipid Profileon 06-24-2024 CHOL Normal 200 [facility] Comment on above: Order Comment: 105-1 Result Comment: COUL D NOT OBTAIN ENOUGH BLOOD Performed By: #### L 501.8100, L506.1000 #### [facility] [address] [place], [address] HDL Normal [facility] Comment on above: Order Comment: 105- Result Comment: COUL D NOT OBTAIN ENOUGH BLOOD Performed By: #### L 501.8100, [id number] #### [facility] [address] [place], [address] LDL Normal 0-130 [facility] Comment on above: Order Comment: 105-1 Result Comment: COUL D NOT OBTAIN ENOUGH BLOOD Performed By: #### L 501.8100, [id number] #### [facility] [address] [place], [address] TRIG Normal [facility] Comment on above: Order Comment: 105-1 Result Comment: COUL D NOT OBTAIN ENOUGH BLOOD Performed By: #### L 501.8100, [id number] #### [facility] [address] [place], [address] VLDL Normal 5-40 [facility] Comment on above: Order Comment: 105-1 Result Comment: COUL D NOT OBTAIN ENOUGH BLOOD Performed By: #### L 501.8100, [id number] #### [facility] [address] [place], [address] Valproic Acid (Depakene) Lev ladonna 06-07-2024 VALPROIC ACID 16 ug/mL Low 50-100 [facility] Comment on above: Order Comment: 105-1 Performed By: #### L 506.1001, L501.8100 #### [facility] [address] [place], [address] Vitamin D,25 Hydroxyon 06-07 Vitamin D 25-OH 65.6 ng/mL Normal [facility] Comment on above: Order Comment: 105-1 Result Comment: Kerline min D 25(OH) Status Range Deficiency <20 ng/mL (50nmol/L) Insufficiency 20 - 30 ng/mL (50 - 75 nmol/L) Sufficiency 30 - 100 ng/mL (75 - 250 nmol/L) Toxicity >100 ng/mL (>250 nmol/L) Performed By: #### L 506.1001, L501.8100 #### [facility] [address] [place], [address] CBC W/Diff, Automatedon 03-22 Absolute Lymph 3.01 X10 3/uL Normal 0.83-4.51 [facility] Comment on above: Order Comment: 105-1 Performed By: #### L 506.1001, L501.8100 #### [facility] [address] [place], [address] Absolute Neut 3.6 X10 3/uL Normal 2.0-7.7 [facility] Comment on above: Order Comment: 105-1 Performed By: #### L 506.1001, [id number] #### [facility] [address] [place], [address] Basophils/100 WBC (Bld) 0.8 % Normal 0-1 [facility] Comment on above: Order Comment: 105-1 Performed By: #### L 506.1001, [id number] #### [facility] [address] [place], [address] Eosinophils/100 WBC (Bld) 4.7 % Normal 0-5 [facility] Comment on above: Order Comment: 105-1 Performed By: #### L 506.1001, [id number] #### [facility] [address] [place], [address] Erythrocyte distribution width (RBC) [Ratio] 13.4 % Normal 11.6-14.6 [facility] Comment on above: Order Comment: 105-1 Performed By: #### L 506.1001, L501.8100 #### [facility] [address] [place], [address] Hematocrit (Bld) [Volume fraction] 45.8 % Normal 37-47 [facility] Comment on above: Order Comment: 105-1 Performed By: #### L 506.1001, [id number] #### [facility] [address] [place], [address] Hemoglobin (Bld) [Mass/Vol] 14.7 g/dL Normal 12.0-15.0 [facility] Comment on above: Order Comment: 105-1 Performed By: #### L 506.1001, [id number] #### [facility] [address] [place], [address] IG% 0.500 Normal 0.0-0.9 [facility] Comment on above: Order Comment: 105-1 Result Comment: IG% - Immature Granulocytes (promyelocytes, myelocytes and metamyelocytes) > 1% indicates that a LEFT SHIFT is Present. Performed By: #### L 506.1001, L501.8100 #### [facility] [address] [place], [address] Lymphocytes/100 WBC (Bld) 39.2 % Normal 19-41 [facility] Comment on above: Order Comment: 105-1 Performed By: #### L 506.1001, [id number] #### [facility] [address] [place], [address] MCH (RBC) [Entitic mass] 31.4 pg Normal 27.0-32.0 [facility] Comment on above: Order Comment: 105-1 Performed By: #### L 506.1001, [id number] #### [facility] [address] [place], [address] MCHC (RBC) [Mass/Vol] 32.1 g/dL Normal 32-36 [facility] Comment on above: Order Comment: 105-1 Performed By: #### L 506.1001, [id number] #### [facility] [address] [place], [address] MCV (RBC) [Entitic vol] 97.9 fL Normal 81-99 [facility] Comment on above: Order Comment: 105-1 Performed By: #### L 506.1001, [id number] #### [facility] [address] [place], [address] Monocytes/100 WBC (Bld) 8.5 % Normal 0-10 [facility] Comment on above: Order Comment: 105-1 Performed By: #### L 506.1001, [id number] #### [facility] [address] [place], [address] Neutrophils/100 WBC (Bld) 46.3 % Low 47-70 [facility] Comment on above: Order Comment: 105-1 Performed By: #### L 506.1001, [id number] #### [facility] [address] [place], [address] Nucleated RBC (Bld) [#/Vol] 0 10*3/uL Normal 0-5 [facility] Comment on above: Order Comment: 105-1 Performed By: #### L 506.1001, [id number] #### [facility] [address] [place], [address] Platelet mean volume (Bld) [Entitic vol] 11.7 fL Normal 6.2-12.0 [facility] Comment on above: Order Comment: 105-1 Performed By: #### L 506.1001, [id number] #### [facility] [address] [place], [address] Platelets (Bld) [#/Vol] 200 10*3/uL Normal 150-450 [facility] Comment on above: Order Comment: 105-1 Performed By: #### L 506.1001, [id number] #### [facility] [address] [place], [address] RBC (Bld) [#/Vol] 4.68 10*6/uL Normal 4.2-5.4 [facility] Comment on above: Order Comment: 105-1 Performed By: #### L 506.1001, [id number] #### [facility] [address] [place], [address] RDW SD 48.6 fl High 35.1-43.9 [facility] Comment on above: Order Comment: 105-1 Performed By: #### L 506.1001, [id number] #### [facility] [address] [place], [address] WBC (Bld) [#/Vol] 7.7 10*3/uL Normal 4.4-11.0 [facility] Comment on above: Order Comment: 105-1 Performed By: #### L 506.1001, [id number] #### [facility] [address] [place], [address] Comprehensive Metabolic Prof ilon 04-01-2024 Albumin [Mass/Vol] 2.6 g/dL Low 3.2-5.0 [facility] Comment on above: Order Comment: 105-1 Performed By: #### L 506.1001, [id number] #### [facility] [address] [place], [address] Albumin/Globulin [Mass ratio] 0.7 {ratio} Low 0.9-2.4 [facility] Comment on above: Order Comment: 105-1 Performed By: #### L 506.1001, [id number] #### [facility] [address] [place], [address] ALK P 75 U/L Normal 45-117 [facility] Comment on above: Order Comment: 105-1 Performed By: #### L 506.1001, [id number] #### [facility] [address] [place], [address] ALT [Catalytic activity/Vol] 24 U/L Normal 13-56 [facility] Comment on above: Order Comment: 105-1 Performed By: #### L 506.1001, [id number] #### [facility] [address] [place], [address] AST [Catalytic activity/Vol] 22 U/L Normal 15-37 [facility] Comment on above: Order Comment: 105-1 Result Comment: Slig ht Hemolysis, Result may be falsely increased. Performed By: #### L 506.1001, [id number] #### [facility] [address] [place], [address] Bilirubin [Mass/Vol] 0.50 mg/dL Normal 0.20-1.00 [facility] Comment on above: Order Comment: 105-1 Result Comment: For patients on eltrombopag therapy, use of Dimension [place] TBIL is not recommended. Performed By: #### L 506.1001, [id number] #### [facility] [address] [place], [address] BUN/CRE 29.0 RATIO High 10-20 [facility] Comment on above: Order Comment: 105-1 Performed By: #### L 506.1001, [id number] #### [facility] [address] [place], [address] CA,Total 8.6 mg/dL Normal 8.5-10.1 [facility] Comment on above: Order Comment: 105-1 Performed By: #### L 506.1001, [id number] #### [facility] [address] [place], [address] Chloride [Moles/Vol] 109 mmol/L High 98-107 [facility] Comment on above: Order Comment: 105-1 Performed By: #### L 506.1001, [id number] #### [facility] [address] [place], [address] CO2 [Moles/Vol] 29.0 mmol/L Normal 21.0-32.0 [facility] Comment on above: Order Comment: 105-1 Performed By: #### L 506.1001, [id number] #### [facility] [address] [place], [address] Creatinine [Mass/Vol] 0.86 mg/dL Normal 0.55-1.02 [facility] Comment on above: Order Comment: 105-1 Result Comment: The validity of the calculated GFR GFRAA in patients over 70 years has not been determined. Clinical correlation is essential. Performed By: #### L 506.1001, L501.8100 #### [facility] [address] [place], [address] EST GFR - AA 81 mL/min Normal >60 [facility] Comment on above: Order Comment: 105-1 Result Comment: Afri can Anguillan GFR Calc Performed By: #### L 506.1001, [id number] #### [facility] [address] [place], [address] GAP 4 Low 5-15 [facility] Comment on above: Order Comment: 105-1 Performed By: #### L 506.1001, [id number] #### [facility] [address] [place], [address] GFR/1.73 sq M.predicted among non-blacks MDRD (S/P/Bld) [Vol rate/Area] 67 mL/min/{1.73_m2} Normal >60 [facility] Comment on above: Order Comment: 105-1 Result Comment: Non- GFR Calc Performed By: #### L 506.1001, L501.8100 #### [facility] [address] [place], [address] Globulin (S) [Mass/Vol] 3.8 g/dL Normal 2.2-4.2 [facility] Comment on above: Order Comment: 105-1 Performed By: #### L 506.1001, [id number] #### [facility] [address] [place], [address] Glucose [Mass/Vol] 82 mg/dL Normal 74-106 [facility] Comment on above: Order Comment: 105-1 Performed By: #### L 506.1001, [id number] #### [facility] [address] [place], [address] Potassium [Moles/Vol] 4.1 mmol/L Normal 3.5-5.1 [facility] Comment on above: Order Comment: 105-1 Result Comment: Slig ht Hemolysis, Result may be falsely increased. Performed By: #### L 506.1001, [id number] #### [facility] [address] [place], [address] Sodium [Moles/Vol] 142 mmol/L Normal 136-145 [facility] Comment on above: Order Comment: 105-1 Performed By: #### L 506.1001, [id number] #### [facility] [address] [place], [address] T PROT 6.4 g/dL Normal 6.4-8.2 [facility] Comment on above: Order Comment: 105-1 Performed By: #### L 506.1001, [id number] #### [facility] [address] [place], [address] Urea nitrogen [Mass/Vol] 25 mg/dL High 7-18 [facility] Comment on above: Order Comment: 105- Performed By: #### L 506.1001, [id number] #### [facility] [address] [place], [address] Lipid Profileon 04-01-2024 Cholesterol [Mass/Vol] 205 mg/dL High 200 [facility] Comment on above: Order Comment: 105- Result Comment: <200 mg/dL Desirable 200-240 mg/dL Borderline >240 mg/dL High Risk Performed By: #### L 506.1001, L501.8100 #### [facility] [address] [place], [address] Cholesterol in HDL [Mass/Vol] 45 mg/dL Normal [facility] Comment on above: Order Comment: 105 Result Comment: The drugs N-Acetylcysteine and Metamizole may falsely depress this assay. Reference Range HDL <40 mg/dL Low HDL Cholesterol HDL >or= 60 mg/dL High HDL Cholesterol Performed By: #### L 506.1001, L501.8100 #### [facility] [address] [place], [address] Cholesterol in LDL [Mass/Vol] 123 mg/dL Normal 0-130 [facility] Comment on above: Order Comment: 105-1 Performed By: #### L 506.1001, [id number] #### [facility] [address] [place], [address] Cholesterol in VLDL [Mass/Vol] 37 mg/dL Normal 5-40 [facility] Comment on above: Order Comment: 105-1 Performed By: #### L 506.1001, [id number] #### [facility] [address] [place], [address] Triglyceride [Mass/Vol] 183 mg/dL Normal [facility] Comment on above: Order Comment: 105-1 Result Comment: The drugs N-Acetylcysteine and Metamizole may falsely depress this assay. Serum Triglycerides Reference Interval Normal <150 mg/dL Borderline high 150 - 199 mg/dL High 200 - 499 mg/dL Very High > or = 500 mg/dL Performed By: #### L 506.1001, [id number] #### [facility] [address] [place], [address] Thyroid Stim Hormone (TSH)on 04-01-2024 TSH 2.08 uIU/mL Normal 0.358-3.74 [facility] Comment on above: Order Comment: 105-1 Performed By: #### L 506.1001, [id number] #### [facility] [address] [place], [address] Valproic Acid (Depakene) Lev ladonna 03-15-2024 VALPROIC ACID 22 ug/mL Low 50-100 [facility] Comment on above: Performed By: #### L 501.8100, L506.1000 #### [facility] [address] [place], [address] Vitamin D,25 Hydroxyon 03-15 Vitamin D 25-OH 68.7 ng/mL Normal [facility] Comment on above: Order Comment: 105-1 Result Comment: Kerline min D 25(OH) Status Range Deficiency <20 ng/mL (50nmol/L) Insufficiency 20 - 30 ng/mL (50 - 75 nmol/L) Sufficiency 30 - 100 ng/mL (75 - 250 nmol/L) Toxicity >100 ng/mL (>250 nmol/L) Performed By: #### L 501.8100, L506.1000 #### [facility] [address] [place], [address] Absolute lymphocyte countOrd ered By: Saurabh Fernandez on 10-16-2023 Lymphocytes Auto (Unsp spec) [#/Vol] 2.40 10*3/uL 0.83-4.51 [facility] Automated lymphocyte count a s percentage of total leukocytesOrdered By: Saurabh Fernandez on 10-16-2023 Lymphocytes/100 WBC Auto (Unsp spec) 22.2 % 19-41 [facility] Basophil percentageOrdered B y: Saurabh Fernandez on 10-16-2023 Basophils/100 WBC (Bld) 0.6 % 0-1 [facility] Bilirubin [Mass/Vol] 0.50 mg/dL 0.20-1.00 [facility] Comment on above: For patients on eltr ombopag therapy, use of Dimension [place] TBIL is not recommended. Chloride [Moles/Vol] 109 mmol/L 98-107 [facility] Cholesterol [Mass/Vol] 204 mg/dL <200 [facility] Comment on above: <200 mg/dL Desirable 200-240 mg/dL Borderline >240 mg/dL High Risk Eosinophils/100 WBC (Bld) 2.9 % 0-5 [facility] Glucose [Mass/Vol] 84 mg/dL 74-106 [facility] Hemoglobin (Bld) [Mass/Vol] 15.1 g/dL 12.0-15.0 [facility] Monocytes/100 WBC (Bld) 7.4 % 0-10 [facility] Neutrophils (Bld) [#/Vol] 7.2 10*3/uL 2.0-7.7 [facility] Neutrophils/100 WBC (Bld) 66.6 % 47-70 [facility] Potassium [Moles/Vol] 3.9 mmol/L 3.5-5.1 [facility] Protein [Mass/Vol] 6.4 g/dL 6.4-8.2 [facility] Sodium [Moles/Vol] 140 mmol/L 136-145 [facility] Triglyceride [Mass/Vol] 144 mg/dL <199 [facility] Comment on above: The drugs N-Acetylcy steine and Metamizole may falsely depress this assay.Serum Triglycerides Reference Interval Normal <150 mg/dL Borderline high 150 - 199 mg/dL High 200 - 499 mg/dL Very High > or = 500 mg/dL WBC (Bld) [#/Vol] 10.8 10*3/uL 4.4-11.0 [facility] Determination of erythrocyte mean corpuscular volume (MCV)Ordered By: Saurabh Fernandez on 10-16-2023 MCV (RBC) [Entitic vol] 99.6 fL 81-99 [facility] Erythrocyte distribution wid th ratioOrdered By: Saurabh Fernandez on 10-16-2023 Erythrocyte distribution width (RBC) [Ratio] 13.4 % 11.6-14.6 [facility] Erythrocyte distribution wid th standard deviationOrdered By: Saurabh Fernandez on 10-16-2023 Erythrocyte distribution width (RBC) [Entitic vol] 49.4 fL 35.1-43.9 [facility] Hematocrit Auto (Bld) [Volum e fraction]Ordered By: Saurabh Fernandez on 10-16-2023 Hematocrit (Bld) [Volume fraction] 47.5 % 37-47 [facility] Immature granulocytes/100 WB C Auto (Bld)Ordered By: Saurabh Fernandez on 10-16-2023 Immature granulocytes/100 WBC (Bld) 0.300 % 0.0-0.9 [facility] Comment on above: IG% - Immature Granu locytes (promyelocytes, myelocytes and metamyelocytes) > 1% indicates that a LEFT SHIFT is Present. Laboratory - Chemistry and C hemistry - challengeOrdered By: Saurabh Fernandez on 10-16-2023 Albumin/Globulin [Mass ratio] 0.7 {ratio} 0.9-2.4 [facility] ALP [Catalytic activity/Vol] 67 U/L 45-117 [facility] ALT [Catalytic activity/Vol] 20 U/L 13-56 [facility] Cholesterol in HDL (Body fld) [Mass/Vol] 48 mg/dL >40 [facility] Comment on above: The drugs N-Acetylcy steine and Metamizole may falsely depress this assay. Reference Range HDL <40 mg/dL Low HDL Cholesterol HDL >or= 60 mg/dL High HDL Cholesterol Cholesterol in LDL (Body fld) [Moles/Vol] 127 mg/dL 0-130 [facility] Cholesterol in VLDL Calc [Moles/Vol] 29 mg/dL 5-40 [facility] CO2 [Moles/Vol] 29.0 mmol/L 21.0-32.0 [facility] Globulin (S) [Mass/Vol] 3.7 g/dL 2.2-4.2 [facility] Urea nitrogen/Creatinine [Mass ratio] 27.9 mg/mg 10-20 [facility] - Hematology and Cell countsOrdered By: Saurabh Fernandez on 10-16-2023 MCH (RBC) [Entitic mass] 31.7 pg 27.0-32.0 [facility] MCHC (RBC) [Mass/Vol] 31.8 g/dL 32-36 [facility] Nucleated RBC/100 WBC (Bld) [Ratio] 0 % 0-5 [facility] Platelets (Bld) [#/Vol] 185 10*3/uL 150-450 [facility] No Panel InformationOrdered By: Saurabh Fernandez on 10-16-2023 Estimated GFR (MDRD) Amer 86 mL/min >60 [facility] Comment on above: GFR Calc Estimated GFR (MDRD) Non-Af Amer 71 mL/min >60 [facility] Comment on above: Non- GFR Calc Platelet mean volume Lior-Ec ker (Bld) [Entitic vol]Ordered By: Saurabh Fernandez on 10-16-2023 Platelet mean volume (Bld) [Entitic vol] 11.8 fL 6.2-12.0 [facility] RBC Auto (Bld) [#/Vol]Ordere d By: Saurabh Fernandez on 10-16-2023 RBC (Bld) [#/Vol] 4.77 10*6/uL 4.2-5.4 [facility] Serum or plasma calcium tyrese urement (mass/volume)Ordered By: Saurabh Fernandez on 10-16-2023 Calcium [Mass/Vol] 8.9 mg/dL 8.5-10.1 [facility] Serum or plasma creatinine m easurement (mass/volume)Ordered By: Saurabh Fernandez on 10-16-2023 Creatinine [Mass/Vol] 0.82 mg/dL 0.55-1.02 [facility] Comment on above: The validity of the calculated GFR & GFRAA in patients over 70 years has not been determined. Clinical correlation is essential. Serum or plasma thyroid stim ulating hormone (TSH) measurement (units/volume)Ordered By: Saurabh Fernandez on 10-16-2023 TSH Qn 2.62 uIU/mL 0.358-3.74 [facility] Serum or plasma urea nitroge n measurement (mass/volume)Ordered By: Saurabh Fernandez on 10-16-2023 Urea nitrogen [Mass/Vol] 23 mg/dL 7-18 [facility] Thin prep Papanicolaou smear with manual screeningOrdered By: Saurabh Fernandez on 10-16-2023 Thin prep Papanicolaou smear with manual screening 2.7 g/dL 3.2-5.0 [facility] Thin prep Papanicolaou smear with manual screening 15 U/L 15-37 [facility] Thin prep Papanicolaou smear with manual screening 2 5-15 [facility] No Panel InformationOrdered By: Saurabh Fernandez on 09-29-2023 Valproic Acid (Depakene) Level 27 ug/mL 50-100 [facility] Vitamin D 25-Hydroxy 86.5 ng/mL [facility] Comment on above: Vitamin D 25(OH) Sta tus Range Deficiency <20 ng/mL (50nmol/L) Insufficiency 20 - 30 ng/mL (50 - 75 nmol/L) Sufficiency 30 - 100 ng/mL (75 - 250 nmol/L) Toxicity >100 ng/mL (>250 nmol/L) Absolute lymphocyte countOrd ered By: Saurabh Fernandez on 09-01-2023 Lymphocytes Auto (Unsp spec) [#/Vol] 4.12 10*3/uL 0.83-4.51 [facility] Basophil percentageOrdered B y: Saurabh Fernandez on 09-01-2023 Basophils/100 WBC (Bld) 0.8 % 0-1 [facility] Bilirubin [Mass/Vol] 0.80 mg/dL 0.20-1.00 [facility] Comment on above: For patients on eltr ombopag therapy, use of Dimension [place] TBIL is not recommended. Chloride [Moles/Vol] 110 mmol/L 98-107 [facility] Eosinophils/100 WBC (Bld) 4.8 % 0-5 [facility] Glucose [Mass/Vol] 79 mg/dL 74-106 [facility] Neutrophils (Bld) [#/Vol] 4.2 10*3/uL 2.0-7.7 [facility] Neutrophils/100 WBC (Bld) 43.6 % 47-70 [facility] Potassium [Moles/Vol] 4.1 mmol/L 3.5-5.1 [facility] Comment on above: Moderate Hemolysis, Result may be falsely increased. Protein [Mass/Vol] 6.7 g/dL 6.4-8.2 [facility] Sodium [Moles/Vol] 142 mmol/L 136-145 [facility] WBC (Bld) [#/Vol] 9.7 10*3/uL 4.4-11.0 [facility] Blood erythrocytes count (nu mber/volume)Ordered By: Saurabh Fernandez on 09-01-2023 RBC (Bld) [#/Vol] 5.00 10*6/uL 4.2-5.4 [facility] Blood hemoglobin measurement (mass/volume)Ordered By: Saurabh Fernandez on 09-01-2023 Hemoglobin (Bld) [Mass/Vol] 16.0 g/dL 12.0-15.0 [facility] Blood lymphocytes/100 leukoc ytesOrdered By: Saurabh Fernandez on 09-01-2023 Lymphocytes/100 WBC (Bld) 42.4 % 19-41 [facility] Blood monocytes/100 leukocyt esOrdered By: Saurabh Fernandez on 09-01-2023 Monocytes/100 WBC (Bld) 7.9 % 0-10 [facility] Blood platelet mean volumeOr dered By: Saurabh Fernandez on 09-01-2023 Platelet mean volume (Bld) [Entitic vol] 11.9 fL 6.2-12.0 [facility] Determination of erythrocyte mean corpuscular volume (MCV)Ordered By: Saurabh Fernandez on 09-01-2023 MCV (RBC) [Entitic vol] 100.8 fL 81-99 [facility] Hematocrit Auto (Bld) [Volum e fraction]Ordered By: Saurabh Fernandez on 09-01-2023 Hematocrit (Bld) [Volume fraction] 50.4 % 37-47 [facility] - Chemistry and C hemistry - challengeOrdered By: Saurabh Fernandez on 09-01-2023 ALP [Catalytic activity/Vol] 67 U/L 45-117 [facility] ALT [Catalytic activity/Vol] 21 U/L 13-56 [facility] CO2 [Moles/Vol] 26.0 mmol/L 21.0-32.0 [facility] Globulin (S) [Mass/Vol] 4.0 g/dL 2.2-4.2 [facility] Urea nitrogen/Creatinine [Mass ratio] 30.2 mg/mg 10-20 [facility] Laboratory - Hematology and Cell countsOrdered By: Saurabh Fernandez on 09-01-2023 Erythrocyte distribution width (RBC) [Entitic vol] 52.3 fL 35.1-43.9 [facility] Erythrocyte distribution width (RBC) [Ratio] 14.0 % 11.6-14.6 [facility] Immature granulocytes/100 WBC (Bld) 0.500 % 0.0-0.9 [facility] Comment on above: IG% - Immature Granu locytes (promyelocytes, myelocytes and metamyelocytes) > 1% indicates that a LEFT SHIFT is Present. MCH (RBC) [Entitic mass] 32.0 pg 27.0-32.0 [facility] Nucleated RBC/100 WBC (Bld) [Ratio] 0 % 0-5 [facility] MCHC Auto (RBC) [Mass/Vol]Or dered By: Saurabh Fernandez on 09-01-2023 MCHC (RBC) [Mass/Vol] 31.7 g/dL 32-36 [facility] No Panel InformationOrdered By: Saurabh Fernandez on 09-01-2023 Estimated GFR (MDRD) Amer 72 mL/min >60 [facility] Comment on above: GFR Calc Estimated GFR (MDRD) Non-Af Amer 59 mL/min >60 [facility] Comment on above: Non- GFR Calc Platelets bldOrdered By: Ambreen Fernandez on 09-01-2023 Platelets (Bld) [#/Vol] 221 10*3/uL 150-450 [facility] Serum or plasma albumin tyrese urement (mass/volume)Ordered By: Saurabh Fernandez on 09-01-2023 Albumin [Mass/Vol] 2.7 g/dL 3.2-5.0 [facility] Serum or plasma albumin/glob ulin mass ratioOrdered By: Saurabh Fernandez on 09-01-2023 Albumin/Globulin [Mass ratio] 0.7 {ratio} 0.9-2.4 [facility] Serum or plasma calcium tyrese urement (mass/volume)Ordered By: Saurabh Fernandez on 09-01-2023 Calcium [Mass/Vol] 8.3 mg/dL 8.5-10.1 [facility] Serum or plasma creatinine m easurement (mass/volume)Ordered By: Saurabh Fernandez on 09-01-2023 Creatinine [Mass/Vol] 0.96 mg/dL 0.55-1.02 [facility] Comment on above: The validity of the calculated GFR & GFRAA in patients over 70 years has not been determined. Clinical correlation is essential. Serum or plasma urea nitroge n measurement (mass/volume)Ordered By: Saurabh Fernandez on 09-01-2023 Urea nitrogen [Mass/Vol] 29 mg/dL 7-18 [facility] Thin prep Papanicolaou smear with manual screeningOrdered By: Saurabh Fernandez on 09-01-2023 Thin prep Papanicolaou smear with manual screening 24 U/L 15-37 [facility] Comment on above: Moderate Hemolysis, Result may be falsely increased. Thin prep Papanicolaou smear with manual screening 6 5-15 [facility] Absolute lymphocyte countOrd ered By: Saurabh Fernandez on 07-24-2023 Lymphocytes Auto (Unsp spec) [#/Vol] 3.02 10*3/uL 0.83-4.51 [facility] Basophil percentageOrdered B y: Saurabh Fernandez on 07-24-2023 Basophils/100 WBC (Bld) 0.6 % 0-1 [facility] Bilirubin [Mass/Vol] 0.40 mg/dL 0.20-1.00 [facility] Comment on above: For patients on eltr ombopag therapy, use of Dimension [place] TBIL is not recommended. Chloride [Moles/Vol] 110 mmol/L 98-107 [facility] Cholesterol [Mass/Vol] 189 mg/dL <200 [facility] Comment on above: <200 mg/dL Desirable 200-240 mg/dL Borderline >240 mg/dL High Risk Eosinophils/100 WBC (Bld) 4.2 % 0-5 [facility] Glucose [Mass/Vol] 85 mg/dL 74-106 [facility] Neutrophils (Bld) [#/Vol] 3.1 10*3/uL 2.0-7.7 [facility] Neutrophils/100 WBC (Bld) 43.7 % 47-70 [facility] Potassium [Moles/Vol] 4.2 mmol/L 3.5-5.1 [facility] Protein [Mass/Vol] 6.4 g/dL 6.4-8.2 [facility] Sodium [Moles/Vol] 141 mmol/L 136-145 [facility] Triglyceride [Mass/Vol] 137 mg/dL <199 [facility] Comment on above: The drugs N-Acetylcy steine and Metamizole may falsely depress this assay.Serum Triglycerides Reference Interval Normal <150 mg/dL Borderline high 150 - 199 mg/dL High 200 - 499 mg/dL Very High > or = 500 mg/dL WBC (Bld) [#/Vol] 7.1 10*3/uL 4.4-11.0 [facility] Blood erythrocytes count (nu mber/volume)Ordered By: Saurabh Fernandez on 07-24-2023 RBC (Bld) [#/Vol] 4.72 10*6/uL 4.2-5.4 [facility] Blood hemoglobin measurement (mass/volume)Ordered By: Saurabh Fernandez on 07-24-2023 Hemoglobin (Bld) [Mass/Vol] 14.8 g/dL 12.0-15.0 [facility] Blood lymphocytes/100 leukoc ytesOrdered By: Saurabh Fernandez on 07-24-2023 Lymphocytes/100 WBC (Bld) 42.6 % 19-41 [facility] Blood monocytes/100 leukocyt esOrdered By: Saurabh Fernandez on 07-24-2023 Monocytes/100 WBC (Bld) 8.5 % 0-10 [facility] Blood platelet mean volumeOr dered By: Saurabh Fernandez on 07-24-2023 Platelet mean volume (Bld) [Entitic vol] 12.0 fL 6.2-12.0 [facility] Determination of erythrocyte mean corpuscular volume (MCV)Ordered By: Saurabh Fernandez on 07-24-2023 MCV (RBC) [Entitic vol] 100.2 fL 81-99 [facility] Hematocrit Auto (Bld) [Volum e fraction]Ordered By: Saurabh Fernandez on 07-24-2023 Hematocrit (Bld) [Volume fraction] 47.3 % 37-47 [facility] - Chemistry and C hemistry - challengeOrdered By: Saurabh Fernandez on 07-24-2023 ALP [Catalytic activity/Vol] 57 U/L 45-117 [facility] ALT [Catalytic activity/Vol] 18 U/L 13-56 [facility] CO2 [Moles/Vol] 29.0 mmol/L 21.0-32.0 [facility] Globulin (S) [Mass/Vol] 3.9 g/dL 2.2-4.2 [facility] Urea nitrogen/Creatinine [Mass ratio] 32.6 mg/mg 10-20 [facility] - Hematology and Cell countsOrdered By: Saurabh Fernandez on 07-24-2023 Erythrocyte distribution width (RBC) [Entitic vol] 50.6 fL 35.1-43.9 [facility] Erythrocyte distribution width (RBC) [Ratio] 13.7 % 11.6-14.6 [facility] Immature granulocytes/100 WBC (Bld) 0.400 % 0.0-0.9 [facility] Comment on above: IG% - Immature Granu locytes (promyelocytes, myelocytes and metamyelocytes) > 1% indicates that a LEFT SHIFT is Present. MCH (RBC) [Entitic mass] 31.4 pg 27.0-32.0 [facility] Nucleated RBC/100 WBC (Bld) [Ratio] 0 % 0-5 [facility] MCHC Auto (RBC) [Mass/Vol]Or dered By: Saurabh Fernandez on 07-24-2023 MCHC (RBC) [Mass/Vol] 31.3 g/dL 32-36 [facility] No Panel InformationOrdered By: Saurabh Fernandez on 07-24-2023 Estimated GFR (MDRD) Amer 82 mL/min >60 [facility] Comment on above: GFR Calc Estimated GFR (MDRD) Non-Af Amer 67 mL/min >60 [facility] Comment on above: Non- GFR Calc Thyroid Stimulating Hormone (TSH) 1.79 uIU/mL 0.358-3.74 [facility] Platelets bldOrdered By: Ambreen Fernandez on 07-24-2023 Platelets (Bld) [#/Vol] 191 10*3/uL 150-450 [facility] Serum or plasma albumin tyrese urement (mass/volume)Ordered By: Saurabh Fernandez on 07-24-2023 Albumin [Mass/Vol] 2.5 g/dL 3.2-5.0 [facility] Serum or plasma albumin/glob ulin mass ratioOrdered By: Saurabh Fernandez on 07-24-2023 Albumin/Globulin [Mass ratio] 0.6 {ratio} 0.9-2.4 [facility] Serum or plasma calcium tyrese urement (mass/volume)Ordered By: Saurabh Fernandez on 07-24-2023 Calcium [Mass/Vol] 8.3 mg/dL 8.5-10.1 [facility] Serum or plasma cholesterol in HDL measurement (mass/volume)Ordered By: Saurabh Fernandez on 07-24-2023 Cholesterol in HDL [Mass/Vol] 45 mg/dL >40 [facility] Comment on above: The drugs N-Acetylcy steine and Metamizole may falsely depress this assay. Reference Range HDL <40 mg/dL Low HDL Cholesterol HDL >or= 60 mg/dL High HDL Cholesterol Serum or plasma cholesterol in VLDL measurement (mass/volume)Ordered By: Saurabh Fernandez on 07-24-2023 Cholesterol in VLDL [Mass/Vol] 27 mg/dL 5-40 [facility] Serum or plasma creatinine m easurement (mass/volume)Ordered By: Saurabh Fernandez on 07-24-2023 Creatinine [Mass/Vol] 0.86 mg/dL 0.55-1.02 [facility] Comment on above: The validity of the calculated GFR & GFRAA in patients over 70 years has not been determined. Clinical correlation is essential. Serum or plasma low density lipoprotein (LDL) cholesterol measurement (mass/volume)Ordered By: Saurabh Fernandez on 07-24-2023 Cholesterol in LDL [Mass/Vol] 117 mg/dL 0-130 [facility] Serum or plasma urea nitroge n measurement (mass/volume)Ordered By: Saurabh Fernandez on 07-24-2023 Urea nitrogen [Mass/Vol] 28 mg/dL 7-18 [facility] Thin prep Papanicolaou smear with manual screeningOrdered By: Saurabh Fernandez on 07-24-2023 Thin prep Papanicolaou smear with manual screening 19 U/L 15-37 [facility] Thin prep Papanicolaou smear with manual screening 2 5-15 [facility] No Panel InformationOrdered By: Saurabh Fernandez on 06-30-2023 Valproic Acid (Depakene) Level 33 ug/mL 50-100 [facility] Absolute lymphocyte countOrd ered By: Saurabh Fernandez on 05-01-2023 Lymphocytes Auto (Unsp spec) [#/Vol] 3.15 10*3/uL 0.83-4.51 [facility] Basophil percentageOrdered B y: Saurabh Fernandez on 05-01-2023 Basophils/100 WBC (Bld) 0.6 % 0-1 [facility] Bilirubin [Mass/Vol] 0.50 mg/dL 0.20-1.00 [facility] Comment on above: For patients on eltr ombopag therapy, use of Dimension [place] TBIL is not recommended. Chloride [Moles/Vol] 108 mmol/L 98-107 [facility] Cholesterol [Mass/Vol] 205 mg/dL <200 [facility] Comment on above: <200 mg/dL Desirable 200-240 mg/dL Borderline >240 mg/dL High Risk Eosinophils/100 WBC (Bld) 3.6 % 0-5 [facility] Glucose [Mass/Vol] 90 mg/dL 74-106 [facility] Neutrophils (Bld) [#/Vol] 3.1 10*3/uL 2.0-7.7 [facility] Neutrophils/100 WBC (Bld) 42.3 % 47-70 [facility] Potassium [Moles/Vol] 4.5 mmol/L 3.5-5.1 [facility] Protein [Mass/Vol] 7.2 g/dL 6.4-8.2 [facility] Sodium [Moles/Vol] 142 mmol/L 136-145 [facility] Triglyceride [Mass/Vol] 160 mg/dL <199 [facility] Comment on above: The drugs N-Acetylcy steine and Metamizole may falsely depress this assay.Serum Triglycerides Reference Interval Normal <150 mg/dL Borderline high 150 - 199 mg/dL High 200 - 499 mg/dL Very High > or = 500 mg/dL WBC (Bld) [#/Vol] 7.3 10*3/uL 4.4-11.0 [facility] Blood erythrocytes count (nu mber/volume)Ordered By: Saurabh Fernandez on 05-01-2023 RBC (Bld) [#/Vol] 4.82 10*6/uL 4.2-5.4 [facility] Blood hemoglobin measurement (mass/volume)Ordered By: Saurabh Fernandez on 05-01-2023 Hemoglobin (Bld) [Mass/Vol] 15.1 g/dL 12.0-15.0 [facility] Blood lymphocytes/100 leukoc ytesOrdered By: Saurabh Fernandez on 05-01-2023 Lymphocytes/100 WBC (Bld) 43.3 % 19-41 [facility] Blood monocytes/100 leukocyt esOrdered By: Saurabh Fernandez on 05-01-2023 Monocytes/100 WBC (Bld) 9.5 % 0-10 [facility] Blood platelet mean volumeOr dered By: Saurabh Fernandez on 05-01-2023 Platelet mean volume (Bld) [Entitic vol] 12.2 fL 6.2-12.0 [facility] Determination of erythrocyte mean corpuscular volume (MCV)Ordered By: Saurabh Fernandez on 05-01-2023 MCV (RBC) [Entitic vol] 100.2 fL 81-99 [facility] Hematocrit Auto (Bld) [Volum e fraction]Ordered By: Saurabh Fernandez on 05-01-2023 Hematocrit (Bld) [Volume fraction] 48.3 % 37-47 [facility] - Chemistry and C hemistry - challengeOrdered By: Saurabh Fernandez on 05-01-2023 ALP [Catalytic activity/Vol] 71 U/L 45-117 [facility] ALT [Catalytic activity/Vol] 27 U/L 13-56 [facility] CO2 [Moles/Vol] 29.0 mmol/L 21.0-32.0 [facility] Globulin (S) [Mass/Vol] 4.3 g/dL 2.2-4.2 [facility] Urea nitrogen/Creatinine [Mass ratio] 29.5 mg/mg 10-20 [facility] - Hematology and Cell countsOrdered By: Saurabh Fernandez on 05-01-2023 Erythrocyte distribution width (RBC) [Entitic vol] 50.1 fL 35.1-43.9 [facility] Erythrocyte distribution width (RBC) [Ratio] 13.4 % 11.6-14.6 [facility] Immature granulocytes/100 WBC (Bld) 0.700 % 0.0-0.9 [facility] Comment on above: IG% - Immature Granu locytes (promyelocytes, myelocytes and metamyelocytes) > 1% indicates that a LEFT SHIFT is Present. MCH (RBC) [Entitic mass] 31.3 pg 27.0-32.0 [facility] Nucleated RBC/100 WBC (Bld) [Ratio] 0 % 0-5 [facility] MCHC Auto (RBC) [Mass/Vol]Or dered By: Saurabh Fernandez on 05-01-2023 MCHC (RBC) [Mass/Vol] 31.3 g/dL 32-36 [facility] No Panel InformationOrdered By: Saurabh Fernandez on 05-01-2023 Estimated GFR (MDRD) Amer 60 mL/min >60 [facility] Comment on above: GFR Calc Estimated GFR (MDRD) Non-Af Amer 50 mL/min >60 [facility] Comment on above: Non- GFR Calc Thyroid Stimulating Hormone (TSH) 2.38 uIU/mL 0.358-3.74 [facility] Platelets bldOrdered By: Ambreen Fernandez on 05-01-2023 Platelets (Bld) [#/Vol] 181 10*3/uL 150-450 [facility] Serum or plasma albumin tyrese urement (mass/volume)Ordered By: Saurabh Fernandez on 05-01-2023 Albumin [Mass/Vol] 2.9 g/dL 3.2-5.0 [facility] Serum or plasma albumin/glob ulin mass ratioOrdered By: Saurabh Fernandez on 05-01-2023 Albumin/Globulin [Mass ratio] 0.7 {ratio} 0.9-2.4 [facility] Serum or plasma calcium tyrese urement (mass/volume)Ordered By: Saurabh Fernandez on 05-01-2023 Calcium [Mass/Vol] 9.0 mg/dL 8.5-10.1 [facility] Serum or plasma cholesterol in HDL measurement (mass/volume)Ordered By: Saurabh Fernandez on 05-01-2023 Cholesterol in HDL [Mass/Vol] 53 mg/dL >40 [facility] Comment on above: The drugs N-Acetylcy steine and Metamizole may falsely depress this assay. Reference Range HDL <40 mg/dL Low HDL Cholesterol HDL >or= 60 mg/dL High HDL Cholesterol Serum or plasma cholesterol in VLDL measurement (mass/volume)Ordered By: Saurabh Fernandez on 05-01-2023 Cholesterol in VLDL [Mass/Vol] 32 mg/dL 5-40 [facility] Serum or plasma creatinine m easurement (mass/volume)Ordered By: Saurabh Fernandez on 05-01-2023 Creatinine [Mass/Vol] 1.12 mg/dL 0.55-1.02 [facility] Comment on above: The validity of the calculated GFR & GFRAA in patients over 70 years has not been determined. Clinical correlation is essential. Serum or plasma low density lipoprotein (LDL) cholesterol measurement (mass/volume)Ordered By: Saurabh Fernandez on 05-01-2023 Cholesterol in LDL [Mass/Vol] 120 mg/dL 0-130 [facility] Serum or plasma urea nitroge n measurement (mass/volume)Ordered By: Saurabh Fernandez on 05-01-2023 Urea nitrogen [Mass/Vol] 33 mg/dL 7-18 [facility] Thin prep Papanicolaou smear with manual screeningOrdered By: Saurabh Fernandez on 05-01-2023 Thin prep Papanicolaou smear with manual screening 21 U/L 15-37 [facility] Thin prep Papanicolaou smear with manual screening 5 5-15 [facility] No Panel InformationOrdered By: Saurabh Fernandez on 04-07-2023 Valproic Acid (Depakene) Level 29 ug/mL 50-100 [facility] Absolute lymphocyte countOrd ered By: Saurabh Fernandez on 02-06-2023 Lymphocytes Auto (Unsp spec) [#/Vol] 2.99 10*3/uL 0.83-4.51 [facility] Basophil percentageOrdered B y: Saurabh Fernandez on 02-06-2023 Basophils/100 WBC (Bld) 0.3 % 0-1 [facility] Bilirubin [Mass/Vol] 0.40 mg/dL 0.20-1.00 [facility] Comment on above: For patients on eltr ombopag therapy, use of Dimension [place] TBIL is not recommended. Chloride [Moles/Vol] 110 mmol/L 98-107 [facility] Cholesterol [Mass/Vol] 196 mg/dL <200 [facility] Comment on above: <200 mg/dL Desirable 200-240 mg/dL Borderline >240 mg/dL High Risk Eosinophils/100 WBC (Bld) 4.4 % 0-5 [facility] Glucose [Mass/Vol] 90 mg/dL 74-106 [facility] Neutrophils (Bld) [#/Vol] 2.9 10*3/uL 2.0-7.7 [facility] Neutrophils/100 WBC (Bld) 43.3 % 47-70 [facility] Potassium [Moles/Vol] 4.4 mmol/L 3.5-5.1 [facility] Protein [Mass/Vol] 6.2 g/dL 6.4-8.2 [facility] Sodium [Moles/Vol] 143 mmol/L 136-145 [facility] Triglyceride [Mass/Vol] 157 mg/dL <199 [facility] Comment on above: The drugs N-Acetylcy steine and Metamizole may falsely depress this assay.Serum Triglycerides Reference Interval Normal <150 mg/dL Borderline high 150 - 199 mg/dL High 200 - 499 mg/dL Very High > or = 500 mg/dL WBC (Bld) [#/Vol] 6.8 10*3/uL 4.4-11.0 [facility] Blood erythrocytes count (nu mber/volume)Ordered By: Saurabh Fernandez on 02-06-2023 RBC (Bld) [#/Vol] 4.40 10*6/uL 4.2-5.4 [facility] Blood hemoglobin measurement (mass/volume)Ordered By: Saurabh Fernandez on 02-06-2023 Hemoglobin (Bld) [Mass/Vol] 13.5 g/dL 12.0-15.0 [facility] Blood lymphocytes/100 leukoc ytesOrdered By: Saurabh Fernandez on 02-06-2023 Lymphocytes/100 WBC (Bld) 44.0 % 19-41 [facility] Blood monocytes/100 leukocyt esOrdered By: Saurabh Fernandez on 02-06-2023 Monocytes/100 WBC (Bld) 7.6 % 0-10 [facility] Blood platelet mean volumeOr dered By: Saurabh Fernandez on 02-06-2023 Platelet mean volume (Bld) [Entitic vol] 11.6 fL 6.2-12.0 [facility] Determination of erythrocyte mean corpuscular volume (MCV)Ordered By: Saurabh Fernandez on 02-06-2023 MCV (RBC) [Entitic vol] 100.0 fL 81-99 [facility] Hematocrit Auto (Bld) [Volum e fraction]Ordered By: Saurabh Fernandez on 02-06-2023 Hematocrit (Bld) [Volume fraction] 44.0 % 37-47 [facility] - Chemistry and C hemistry - challengeOrdered By: Saurabh Fernandez on 02-06-2023 ALP [Catalytic activity/Vol] 63 U/L 45-117 [facility] ALT [Catalytic activity/Vol] 20 U/L 13-56 [facility] CO2 [Moles/Vol] 28.0 mmol/L 21.0-32.0 [facility] Globulin (S) [Mass/Vol] 3.8 g/dL 2.2-4.2 [facility] Urea nitrogen/Creatinine [Mass ratio] 25.0 mg/mg 10-20 [facility] - Hematology and Cell countsOrdered By: Saurabh Fernandez on 02-06-2023 Erythrocyte distribution width (RBC) [Entitic vol] 51.3 fL 35.1-43.9 [facility] Erythrocyte distribution width (RBC) [Ratio] 13.9 % 11.6-14.6 [facility] Immature granulocytes/100 WBC (Bld) 0.400 % 0.0-0.9 [facility] Comment on above: IG% - Immature Granu locytes (promyelocytes, myelocytes and metamyelocytes) > 1% indicates that a LEFT SHIFT is Present. MCH (RBC) [Entitic mass] 30.7 pg 27.0-32.0 [facility] Nucleated RBC/100 WBC (Bld) [Ratio] 0 % 0-5 [facility] MCHC Auto (RBC) [Mass/Vol]Or dered By: Saurabh Fernandez on 02-06-2023 MCHC (RBC) [Mass/Vol] 30.7 g/dL 32-36 [facility] No Panel InformationOrdered By: Saurabh Fernandez on 02-06-2023 Estimated GFR (MDRD) Amer 84 mL/min >60 [facility] Comment on above: GFR Calc Estimated GFR (MDRD) Non-Af Amer 69 mL/min >60 [facility] Comment on above: Non- GFR Calc Thyroid Stimulating Hormone (TSH) 2.21 uIU/mL 0.358-3.74 [facility] Platelets bldOrdered By: Ambreen Fernandez on 02-06-2023 Platelets (Bld) [#/Vol] 204 10*3/uL 150-450 [facility] Serum or plasma albumin tyrese urement (mass/volume)Ordered By: Saurabh Fernandez on 02-06-2023 Albumin [Mass/Vol] 2.4 g/dL 3.2-5.0 [facility] Serum or plasma albumin/glob ulin mass ratioOrdered By: Saurabh Fernandez on 02-06-2023 Albumin/Globulin [Mass ratio] 0.6 {ratio} 0.9-2.4 [facility] Serum or plasma calcium tyrese urement (mass/volume)Ordered By: Saurabh Fernandez on 02-06-2023 Calcium [Mass/Vol] 8.2 mg/dL 8.5-10.1 [facility] Serum or plasma cholesterol in HDL measurement (mass/volume)Ordered By: Saurabh Fernandez on 02-06-2023 Cholesterol in HDL [Mass/Vol] 51 mg/dL >40 [facility] Comment on above: The drugs N-Acetylcy steine and Metamizole may falsely depress this assay. Reference Range HDL <40 mg/dL Low HDL Cholesterol HDL >or= 60 mg/dL High HDL Cholesterol Serum or plasma cholesterol in VLDL measurement (mass/volume)Ordered By: Saurabh Fernandez on 02-06-2023 Cholesterol in VLDL [Mass/Vol] 31 mg/dL 5-40 [facility] Serum or plasma creatinine m easurement (mass/volume)Ordered By: Saurabh Fernandez on 02-06-2023 Creatinine [Mass/Vol] 0.84 mg/dL 0.55-1.02 [facility] Comment on above: The validity of the calculated GFR & GFRAA in patients over 70 years has not been determined. Clinical correlation is essential. Serum or plasma low density lipoprotein (LDL) cholesterol measurement (mass/volume)Ordered By: Saurabh Fernandez on 02-06-2023 Cholesterol in LDL [Mass/Vol] 114 mg/dL 0-130 [facility] Serum or plasma urea nitroge n measurement (mass/volume)Ordered By: Saurabh Fernandez on 02-06-2023 Urea nitrogen [Mass/Vol] 21 mg/dL 7-18 [facility] Thin prep Papanicolaou smear with manual screeningOrdered By: Saurabh Fernandez on 02-06-2023 Thin prep Papanicolaou smear with manual screening 15 U/L 15-37 [facility] Thin prep Papanicolaou smear with manual screening 5 5-15 [facility] No Panel InformationOrdered By: Saurabh Fernandez on 01-13-2023 Valproic Acid (Depakene) Level 38 ug/mL 50-100 [facility] Absolute lymphocyte countOrd ered By: Saurabh Fernandez on 11-14-2022 Lymphocytes Auto (Unsp spec) [#/Vol] 2.82 10*3/uL 0.83-4.51 [facility] Basophil percentageOrdered B y: Saurabh Fernandez on 11-14-2022 Basophils/100 WBC (Bld) 0.3 % 0-1 [facility] Bilirubin [Mass/Vol] 0.40 mg/dL 0.20-1.00 [facility] Comment on above: For patients on eltr ombopag therapy, use of Dimension [place] TBIL is not recommended. Chloride [Moles/Vol] 111 mmol/L 98-107 [facility] Cholesterol [Mass/Vol] 179 mg/dL <200 [facility] Comment on above: <200 mg/dL Desirable 200-240 mg/dL Borderline >240 mg/dL High Risk Eosinophils/100 WBC (Bld) 3.6 % 0-5 [facility] Glucose [Mass/Vol] 77 mg/dL 74-106 [facility] Neutrophils (Bld) [#/Vol] 6.6 10*3/uL 2.0-7.7 [facility] Neutrophils/100 WBC (Bld) 61.7 % 47-70 [facility] Potassium [Moles/Vol] 4.2 mmol/L 3.5-5.1 [facility] Protein [Mass/Vol] 6.4 g/dL 6.4-8.2 [facility] Sodium [Moles/Vol] 145 mmol/L 136-145 [facility] Triglyceride [Mass/Vol] 124 mg/dL <199 [facility] Comment on above: The drugs N-Acetylcy steine and Metamizole may falsely depress this assay.Serum Triglycerides Reference Interval Normal <150 mg/dL Borderline high 150 - 199 mg/dL High 200 - 499 mg/dL Very High > or = 500 mg/dL WBC (Bld) [#/Vol] 10.7 10*3/uL 4.4-11.0 [facility] Blood erythrocytes count (nu mber/volume)Ordered By: Saurabh Fernandez on 11-14-2022 RBC (Bld) [#/Vol] 4.11 10*6/uL 4.2-5.4 [facility] Blood hemoglobin measurement (mass/volume)Ordered By: Saurabh Fernandez on 11-14-2022 Hemoglobin (Bld) [Mass/Vol] 12.7 g/dL 12.0-15.0 [facility] Blood lymphocytes/100 leukoc ytesOrdered By: Saurabh Fernandez on 11-14-2022 Lymphocytes/100 WBC (Bld) 26.4 % 19-41 [facility] Blood monocytes/100 leukocyt esOrdered By: Saurabh Fernandez on 11-14-2022 Monocytes/100 WBC (Bld) 7.6 % 0-10 [facility] Blood platelet mean volumeOr dered By: Saurabh Fernandez on 11-14-2022 Platelet mean volume (Bld) [Entitic vol] 11.6 fL 6.2-12.0 [facility] Determination of erythrocyte mean corpuscular volume (MCV)Ordered By: Saurabh Fernandez on 11-14-2022 MCV (RBC) [Entitic vol] 99.5 fL 81-99 [facility] Hematocrit Auto (Bld) [Volum e fraction]Ordered By: Saurabh Fernandez on 11-14-2022 Hematocrit (Bld) [Volume fraction] 40.9 % 37-47 [facility] Laboratory - Chemistry and C hemistry - challengeOrdered By: Saurabh Fernandez on 11-14-2022 ALP [Catalytic activity/Vol] 70 U/L 45-117 [facility] ALT [Catalytic activity/Vol] 22 U/L 13-56 [facility] CO2 [Moles/Vol] 29.0 mmol/L 21.0-32.0 [facility] Globulin (S) [Mass/Vol] 3.9 g/dL 2.2-4.2 [facility] Urea nitrogen/Creatinine [Mass ratio] 25.1 mg/mg 10-20 [facility] - Hematology and Cell countsOrdered By: Saurabh Fernandez on 11-14-2022 Erythrocyte distribution width (RBC) [Entitic vol] 52.2 fL 35.1-43.9 [facility] Erythrocyte distribution width (RBC) [Ratio] 14.3 % 11.6-14.6 [facility] Immature granulocytes/100 WBC (Bld) 0.400 % 0.0-0.9 [facility] Comment on above: IG% - Immature Granu locytes (promyelocytes, myelocytes and metamyelocytes) > 1% indicates that a LEFT SHIFT is Present. MCH (RBC) [Entitic mass] 30.9 pg 27.0-32.0 [facility] Nucleated RBC/100 WBC (Bld) [Ratio] 0 % 0-5 [facility] MCHC Auto (RBC) [Mass/Vol]Or dered By: Saurabh Fernandez on 11-14-2022 MCHC (RBC) [Mass/Vol] 31.1 g/dL 32-36 [facility] No Panel InformationOrdered By: Saurabh Fernandez on 11-14-2022 Estimated GFR (MDRD) Amer 84 mL/min >60 [facility] Comment on above: GFR Calc Estimated GFR (MDRD) Non-Af Amer 70 mL/min >60 [facility] Comment on above: Non- GFR Calc Thyroid Stimulating Hormone (TSH) 3.57 uIU/mL 0.358-3.74 [facility] Platelets bldOrdered By: Ambreen Fernandez on 11-14-2022 Platelets (Bld) [#/Vol] 209 10*3/uL 150-450 [facility] Serum or plasma albumin tyrese urement (mass/volume)Ordered By: Saurabh Fernandez on 11-14-2022 Albumin [Mass/Vol] 2.5 g/dL 3.2-5.0 [facility] Serum or plasma albumin/glob ulin mass ratioOrdered By: Saurabh Fernandez on 11-14-2022 Albumin/Globulin [Mass ratio] 0.6 {ratio} 0.9-2.4 [facility] Serum or plasma calcium tyrese urement (mass/volume)Ordered By: Saurabh Fernandez on 11-14-2022 Calcium [Mass/Vol] 8.5 mg/dL 8.5-10.1 [facility] Serum or plasma cholesterol in HDL measurement (mass/volume)Ordered By: Saurabh Fernandez on 11-14-2022 Cholesterol in HDL [Mass/Vol] 48 mg/dL >40 [facility] Comment on above: The drugs N-Acetylcy steine and Metamizole may falsely depress this assay. Reference Range HDL <40 mg/dL Low HDL Cholesterol HDL >or= 60 mg/dL High HDL Cholesterol Serum or plasma cholesterol in VLDL measurement (mass/volume)Ordered By: Saurabh Fernandez on 11-14-2022 Cholesterol in VLDL [Mass/Vol] 25 mg/dL 5-40 [facility] Serum or plasma creatinine m easurement (mass/volume)Ordered By: Saurabh Fernandez on 11-14-2022 Creatinine [Mass/Vol] 0.84 mg/dL 0.55-1.02 [facility] Comment on above: The validity of the calculated GFR & GFRAA in patients over 70 years has not been determined. Clinical correlation is essential. Serum or plasma low density lipoprotein (LDL) cholesterol measurement (mass/volume)Ordered By: Saurabh Fernandez on 11-14-2022 Cholesterol in LDL [Mass/Vol] 106 mg/dL 0-130 [facility] Serum or plasma urea nitroge n measurement (mass/volume)Ordered By: Saurabh Fernandez on 11-14-2022 Urea nitrogen [Mass/Vol] 21 mg/dL 7-18 [facility] Thin prep Papanicolaou smear with manual screeningOrdered By: Saurabh Fernandez on 11-14-2022 Thin prep Papanicolaou smear with manual screening 21 U/L 15-37 [facility] Thin prep Papanicolaou smear with manual screening 5 5-15 [facility] No Panel InformationOrdered By: Saurabh Fernandez on 10-21-2022 Valproic Acid (Depakene) Level 31 ug/mL 50-100 [facility] Progress Noteon 08-28-2022 Progress Note Patient with history of dementia and leg DVT has been stable. Acclimating to her new home. There is been no recent change in mental status. Gets nervous and jittery but denies any headache or chest pain. No recent fever cough or abdominal pain. Eating really well. No vomiting or diarrhea. Denies abdominal pain or dysuria. She has been pleasantly confused. No new arthralgia. Presently on Xarelto for left leg DVT. Vital signs are stable. Alert and cooperative. Follows all commands. Nonicteric. No JVD or adenopathy. Heart is regular with occasional ectopics. Lungs are diminished but clear of rales or wheezes. Abdomen obese and nontender without masses or pain. No ascites. Left calf is slightly swollen but nontender. Color is good. LDL slightly elevated. CBC and CMP normal. 1. Moderate dementia with anxiety, unspecified dementia type Stable, continue supportive measures with Depakote, Zyprexa and Paxil, Ativan as needed and trazodone 2. Recurrent depression (HCC) Stable, see above and continue current meds 3. Essential hypertension Stable, continue amlodipine and metoprolol 4. History of DVT (deep vein thrombosis) Stable, will decrease Xarelto to 10 mg daily for prophylaxis Normal [facility] Absolute lymphocyte countOrd ered By: Harpal Ramirez on 08-23-2022 Lymphocytes Auto (Unsp spec) [#/Vol] 2.14 10*3/uL 0.83-4.51 [facility] Basophil percentageOrdered B y: Harpal Ramirez on 08-23-2022 Basophils/100 WBC (Bld) 0.6 % 0-1 [facility] Eosinophils/100 WBC (Bld) 4.1 % 0-5 [facility] Neutrophils (Bld) [#/Vol] 3.5 10*3/uL 2.0-7.7 [facility] Neutrophils/100 WBC (Bld) 53.2 % 47-70 [facility] WBC (Bld) [#/Vol] 6.6 10*3/uL 4.4-11.0 [facility] Blood erythrocytes count (nu mber/volume)Ordered By: Harpal Ramirez on 08-23-2022 RBC (Bld) [#/Vol] 3.84 10*6/uL 4.2-5.4 [facility] Blood hemoglobin measurement (mass/volume)Ordered By: Harpal Ramirez on 08-23-2022 Hemoglobin (Bld) [Mass/Vol] 11.7 g/dL 12.0-15.0 [facility] Blood lymphocytes/100 leukoc ytesOrdered By: Harpal Ramirez on 08-23-2022 Lymphocytes/100 WBC (Bld) 32.5 % 19-41 [facility] Blood monocytes/100 leukocyt esOrdered By: Harpal Ramirez on 08-23-2022 Monocytes/100 WBC (Bld) 9.1 % 0-10 [facility] Blood platelet mean volumeOr dered By: Harpal Ramirez on 08-23-2022 Platelet mean volume (Bld) [Entitic vol] 11.5 fL 6.2-12.0 [facility] Determination of erythrocyte mean corpuscular volume (MCV)Ordered By: Harpal Ramirez on 08-23-2022 MCV (RBC) [Entitic vol] 96.6 fL 81-99 [facility] Hematocrit Auto (Bld) [Volum e fraction]Ordered By: Harpal Ramirez on 08-23-2022 Hematocrit (Bld) [Volume fraction] 37.1 % 37-47 [facility] Laboratory - Hematology and Cell countsOrdered By: Harpal Ramirez on 08-23-2022 Erythrocyte distribution width (RBC) [Entitic vol] 50.7 fL 35.1-43.9 [facility] Erythrocyte distribution width (RBC) [Ratio] 14.4 % 11.6-14.6 [facility] Immature granulocytes/100 WBC (Bld) 0.500 % 0.0-0.9 [facility] Comment on above: IG% - Immature Granu locytes (promyelocytes, myelocytes and metamyelocytes) > 1% indicates that a LEFT SHIFT is Present. MCH (RBC) [Entitic mass] 30.5 pg 27.0-32.0 [facility] Nucleated RBC/100 WBC (Bld) [Ratio] 0 % 0-5 [facility] MCHC Auto (RBC) [Mass/Vol]Or dered By: Harpal Ramirez on 08-23-2022 MCHC (RBC) [Mass/Vol] 31.5 g/dL 32-36 [facility] Platelets bldOrdered By: Kanu Ramirez on 08-23-2022 Platelets (Bld) [#/Vol] 226 10*3/uL 150-450 [facility] 36on 08-22-2022 36 Last seen:11/28/21 [facility] Basophil percentageOrdered B y: Harpal Ramirez on 08-22-2022 Bilirubin [Mass/Vol] 0.60 mg/dL 0.20-1.00 [facility] Comment on above: For patients on eltr ombopag therapy, use of Dimension [place] TBIL is not recommended. Chloride [Moles/Vol] 105 mmol/L 98-107 [facility] Cholesterol [Mass/Vol] 189 mg/dL <200 [facility] Comment on above: <200 mg/dL Desirable 200-240 mg/dL Borderline >240 mg/dL High Risk Glucose [Mass/Vol] 83 mg/dL 74-106 [facility] Potassium [Moles/Vol] 4.1 mmol/L 3.5-5.1 [facility] Protein [Mass/Vol] 7.6 g/dL 6.4-8.2 [facility] Sodium [Moles/Vol] 140 mmol/L 136-145 [facility] Triglyceride [Mass/Vol] 121 mg/dL <199 [facility] Comment on above: The drugs N-Acetylcy steine and Metamizole may falsely depress this assay.Serum Triglycerides Reference Interval Normal <150 mg/dL Borderline high 150 - 199 mg/dL High 200 - 499 mg/dL Very High > or = 500 mg/dL Laboratory - Chemistry and C hemistry - challengeOrdered By: Harpal Ramirez on 08-22-2022 ALP [Catalytic activity/Vol] 75 U/L 45-117 [facility] ALT [Catalytic activity/Vol] 28 U/L 13-56 [facility] CO2 [Moles/Vol] 30.0 mmol/L 21.0-32.0 [facility] Globulin (S) [Mass/Vol] 4.5 g/dL 2.2-4.2 [facility] Urea nitrogen/Creatinine [Mass ratio] 28.4 mg/mg 10-20 [facility] No Panel InformationOrdered By: Harpal Ramirez on 08-22-2022 Estimated GFR (MDRD) Amer 70 mL/min >60 [facility] Comment on above: GFR Calc Estimated GFR (MDRD) Non-Af Amer 58 mL/min >60 [facility] Comment on above: Non- GFR Calc Thyroid Stimulating Hormone (TSH) 2.50 uIU/mL 0.358-3.74 [facility] Serum or plasma albumin tyrese urement (mass/volume)Ordered By: Harpal Ramirez on 08-22-2022 Albumin [Mass/Vol] 3.1 g/dL 3.2-5.0 [facility] Serum or plasma albumin/glob ulin mass ratioOrdered By: Harpal Ramirez on 08-22-2022 Albumin/Globulin [Mass ratio] 0.7 {ratio} 0.9-2.4 [facility] Serum or plasma calcium tyrese urement (mass/volume)Ordered By: Harpal Ramirez on 08-22-2022 Calcium [Mass/Vol] 9.1 mg/dL 8.5-10.1 [facility] Serum or plasma cholesterol in HDL measurement (mass/volume)Ordered By: Harpal Ramirez on 08-22-2022 Cholesterol in HDL [Mass/Vol] 62 mg/dL >40 [facility] Comment on above: The drugs N-Acetylcy steine and Metamizole may falsely depress this assay. Reference Range HDL <40 mg/dL Low HDL Cholesterol HDL >or= 60 mg/dL High HDL Cholesterol Serum or plasma cholesterol in VLDL measurement (mass/volume)Ordered By: Harpal Ramirez on 08-22-2022 Cholesterol in VLDL [Mass/Vol] 24 mg/dL 5-40 [facility] Serum or plasma creatinine m easurement (mass/volume)Ordered By: Harpal Ramirez on 08-22-2022 Creatinine [Mass/Vol] 0.98 mg/dL 0.55-1.02 [facility] Comment on above: The validity of the calculated GFR & GFRAA in patients over 70 years has not been determined. Clinical correlation is essential. Serum or plasma low density lipoprotein (LDL) cholesterol measurement (mass/volume)Ordered By: Harpal Ramirez on 08-22-2022 Cholesterol in LDL [Mass/Vol] 103 mg/dL 0-130 [facility] Serum or plasma urea nitroge n measurement (mass/volume)Ordered By: Harpal Ramirez on 08-22-2022 Urea nitrogen [Mass/Vol] 28 mg/dL 7-18 [facility] Thin prep Papanicolaou smear with manual screeningOrdered By: Harpal Ramirez on 08-22-2022 Thin prep Papanicolaou smear with manual screening 19 U/L 15-37 [facility] Thin prep Papanicolaou smear with manual screening 5 5-15 [facility] No Panel InformationOrdered By: Harpal Ramirez on 07-29-2022 Valproic Acid (Depakene) Level 38 ug/mL 50-100 [facility] Absolute lymphocyte countOrd ered By: Harpal Ramirez on 07-24-2022 Lymphocytes Auto (Unsp spec) [#/Vol] 2.39 10*3/uL 0.83-4.51 [facility] Basophil percentageOrdered B y: Harpal Ramirez on 07-24-2022 Basophils/100 WBC (Bld) 1.0 % 0-1 [facility] Chloride [Moles/Vol] 112 mmol/L 98-107 [facility] Eosinophils/100 WBC (Bld) 9.2 % 0-5 [facility] Glucose [Mass/Vol] 77 mg/dL 74-106 [facility] Neutrophils (Bld) [#/Vol] 2.3 10*3/uL 2.0-7.7 [facility] Neutrophils/100 WBC (Bld) 39.3 % 47-70 [facility] Potassium [Moles/Vol] 4.3 mmol/L 3.5-5.1 [facility] Comment on above: Slight Hemolysis, Re sult may be falsely increased. Sodium [Moles/Vol] 142 mmol/L 136-145 [facility] WBC (Bld) [#/Vol] 5.7 10*3/uL 4.4-11.0 [facility] Blood erythrocytes count (nu mber/volume)Ordered By: Harpal Ramirez on 07-24-2022 RBC (Bld) [#/Vol] 4.17 10*6/uL 4.2-5.4 [facility] Blood hemoglobin measurement (mass/volume)Ordered By: Harpal Ramirez on 07-24-2022 Hemoglobin (Bld) [Mass/Vol] 13.1 g/dL 12.0-15.0 [facility] Blood lymphocytes/100 leukoc ytesOrdered By: Harpal Ramirez on 07-24-2022 Lymphocytes/100 WBC (Bld) 41.6 % 19-41 [facility] Blood monocytes/100 leukocyt esOrdered By: Harpal Ramirez on 07-24-2022 Monocytes/100 WBC (Bld) 8.4 % 0-10 [facility] Blood platelet mean volumeOr dered By: Harpal Ramirez on 07-24-2022 Platelet mean volume (Bld) [Entitic vol] 11.5 fL 6.2-12.0 [facility] Determination of erythrocyte mean corpuscular volume (MCV)Ordered By: Harpal Ramirez on 07-24-2022 MCV (RBC) [Entitic vol] 99.0 fL 81-99 [facility] Hematocrit Auto (Bld) [Volum e fraction]Ordered By: Harpal Ramirez on 07-24-2022 Hematocrit (Bld) [Volume fraction] 41.3 % 37-47 [facility] Laboratory - Chemistry and C hemistry - challengeOrdered By: Harpal Ramirez on 07-24-2022 CO2 [Moles/Vol] 25.0 mmol/L 21.0-32.0 [facility] Urea nitrogen/Creatinine [Mass ratio] 24.3 mg/mg 10-20 [facility] - Hematology and Cell countsOrdered By: Harpal Ramirez on 07-24-2022 Erythrocyte distribution width (RBC) [Entitic vol] 54.2 fL 35.1-43.9 [facility] Erythrocyte distribution width (RBC) [Ratio] 14.8 % 11.6-14.6 [facility] Immature granulocytes/100 WBC (Bld) 0.500 % 0.0-0.9 [facility] Comment on above: IG% - Immature Granu locytes (promyelocytes, myelocytes and metamyelocytes) > 1% indicates that a LEFT SHIFT is Present. MCH (RBC) [Entitic mass] 31.4 pg 27.0-32.0 [facility] Nucleated RBC/100 WBC (Bld) [Ratio] 0 % 0-5 [facility] MCHC Auto (RBC) [Mass/Vol]Or dered By: Harpal Ramirez on 07-24-2022 MCHC (RBC) [Mass/Vol] 31.7 g/dL 32-36 [facility] No Panel InformationOrdered By: Harpal Ramirez on 07-24-2022 Estimated GFR (MDRD) Amer 66 mL/min >60 [facility] Comment on above: GFR Calc Estimated GFR (MDRD) Non-Af Amer 55 mL/min >60 [facility] Comment on above: Non- GFR Calc Thyroid Stimulating Hormone (TSH) 2.63 uIU/mL 0.358-3.74 [facility] Platelets bldOrdered By: Kanu Ramirez on 07-24-2022 Platelets (Bld) [#/Vol] 201 10*3/uL 150-450 [facility] Progress Noteon 07-24-2022 Progress Note See Scanned Progress Notes Normal [facility] Serum or plasma calcium tyrese urement (mass/volume)Ordered By: Harpal Ramirez on 07-24-2022 Calcium [Mass/Vol] 8.5 mg/dL 8.5-10.1 [facility] Serum or plasma creatinine m easurement (mass/volume)Ordered By: Harpal Ramirez on 07-24-2022 Creatinine [Mass/Vol] 1.03 mg/dL 0.55-1.02 [facility] Comment on above: The validity of the calculated GFR & GFRAA in patients over 70 years has not been determined. Clinical correlation is essential. Serum or plasma urea nitroge n measurement (mass/volume)Ordered By: Harpal Ramirez on 07-24-2022 Urea nitrogen [Mass/Vol] 25 mg/dL 7-18 [facility] Thin prep Papanicolaou smear with manual screeningOrdered By: Harpal Ramirez on 07-24-2022 Thin prep Papanicolaou smear with manual screening 5 5-15 [facility] CASE MANAGEMon 06-24-2022 CASE MANAGEM HNO ID: [id number] Author: LATRICE Munoz Service: Social Work Author Type: Plater Production Type: Care Mgt Progress Note Filed: 06/24/2022 1:34 PM Note Text: BEHAVIORAL HEALTH SOCIAL WORK DISCHARGE NOTE SERVICE DATE: 06/24/2022 SERVICE TIME: 10:30 am Discharge Information Row Name Admission (Current) from 06/06/2022 in [facility] Psychiatry Follow-Up Appointment Psychiatrist Name Pt to be followed at facility Guardian/Surrogate Decision Maker Name Daughter Jennifer Hidalgo is POA Discharge Disposition [facility] Referral Information Agency Name [facility] Address [address], [place] [id number] Additional Discharge Information Additional Discharge Resources Jeana: [phone] Patient/Hearing Aid Specialist Agreeable With Discharge Plan: Yes FREEDOM OF CHOICE EXPLAINED? Yes. A list of appropriate referrals presented to/discussed with POA on 06/07/22 at 1200 Patient/Hearing Aid Specialist Given/Explained Medicare Discharge Notice (IM letter): Yes (Date and Time): 06/06/22 at 11:55 am TRANSPORTATION ARRANGEMENTS: Mode of Transportation: Ambulance Transportation Agency and Phone #: [facility] [phone] . Date of Trip: 06/24/22 Type of Service: BLS Non-emergency Is Patient Medicaid Pending: No PRESCRIPTIONS FILLED PRIOR TO DISCHARGE: No, patient discharged to retirement ADDITIONAL NOTES: SW discussed Pt in treatment team and observed her on unit. No acute safety concerns at this time, no SI/HI/SIB or AVH. Family is aware and agreeable to discharge plan above. No further SW intervention required, per MD Pt is adequate for discharge. SIGNATURE: LATRICE Munoz PATIENT NAME: Chay Teague DATE: June 24, 2022 TIME: 11:00 AM [facility] CNDSon 06-24-2022 [facility] HNO ID: [id number] Author: John Penny MD Service: Psychiatry Author Type: Physician Type: Discharge Summary Filed: 06/24/2022 10:20 AM Note Text: DISCHARGE SUMMARY BEHAVIORAL HEALTH SERVICE DATE: June 24, 2022 SERVICE TIME: 8:54 AM PATIENT NAME: Chay Teague ADMISSION DATE: 06/06/2022 DATE OF DISCHARGE: June 24, 2022 Attending Physician: John Penny Reason for Hospitalization: Behavior that created a grave and imminent risk to the rights of others or the person Discharge Diagnosis: Hallucination and psychosis, not otherwise specified; frontal lobe dementia with behavioral disturbances; wandering behavior; confusion. Operations During Hospitalization: None Procedures During Hospitalization: No procedures performed Hospital Course: Patient was admitted to [facility] after she appeared to [facility] for wandering behavior; behavioral disturbances; was found to suffer UTI, received IV Rocephin. Patient brought in from home by family for confusion, suffered frontal lobe dementia and multiple medical problems, countdown to suffer UTI. Daughter brought the patient to the ED. Daughter is power of commonwealth attorney after she contacted by the local police about her mom wandering in the street alone. Patient has history of visual hallucinations of red car and a cat, becoming upset with her daughter when daughter told her they are not, thinking people are stealing things from her. When her daughter redirect her, she gets upset. Patient was incoherent, irrelevant during the initial encounter. She has to be medicated with p.r.n. and Rocephin. When arrived to the unit, she was very confused, but redirectable. Daughter, , reports patient has been suffering dementia. She has been residing at home with paid support during daytime and family managing her medications at night. Per daughter, the police were called earlier today, notified that the patient was wandering. Patient's daughter noted that the patient was dressed inappropriately with clothing that is too small and sweater that is too heavy for the temperature. Past 2 days, has been hallucinating, probably secondary to urinary tract infection. Talking about lot of people, who long time ago. Daughter believed that is no longer safe for her to stay at home and began process of looking for placement and she is on a waiting list for [facility]. 06/07/2022 Seen in day area Said she feels okay Disoriented Pleasant during the interview 06/08/2022een in day area Confused 06/09/2022atient is compliant with medications No adverse reactions to medications Sleep is good 5 hrs Appetite is good 06/10/2022 in day area Euphoric singing with TV music disinhibited 06/11/2022 in day area Confused PMA 06/12/2022 in day area insomnia 06/13/2022een in room Hypomanic Irritable Still symptomatic requires total care Placement issues 06/14/2022 Seen in room Confused No PRNs Improved sleep COVERAGE FROM DR. TRISHA MCGILL 06/15/2022This patient is very restless and quietly agitated. She keeps asking staff for help for no apparent reason, will express fear or tap on the table repeatedly. 06/17/2022 This patient has been under much better control of her behavior. No longer tapping tables or yelling out. 06/19/2022 This patient remains confused and disorganized and her behavior is good during the day but she becomes more confused and agitated at night. 06/21/2022 This patient remains confused and disorganized but has been under good control., compliant with her medications and the martinez routine. 06/23/2022This patient has been more disorganized and agitated today. Banging on the table and yelling. COVERAGE ENDED 06/24/2022 patient to be discharged today, follow up as per SNF Labs and Procedures Pending at Discharge: No pending results. Consulting Teams During Hospitalization: Internal Medicine: Dr. Bray Patient Condition @ Discharge: Stable Discharge Disposition: Alf Facility Complications: None ASSESSMENT: The status of the patient is improving and maintained stability. At this time the patient has maximized the benefit from hospitalization.. The patient denies suicidal or homicidal ideation, intent or plan and is safe for discharge. The patient voices a readiness to transition out of the acute inpatient setting and has agreed to our follow-up recommendations including medication compliance. SUBJECTIVE: I feel okay OBJECTIVE: Patient seen, Alert, Awake. Cooperative Patient is compliant with medications No adverse reactions to medications Non-Violent Sleep is good Appetite is good Any PRN's required for agitation or anxiety since last encounter: No New problems on the unit since the last encounter: No Any new medication reactions since the last encounter: No BP 102/66 Pulse 70 Temp (Src) 97.9 (Oral) Resp 18 (more content not included)... [facility] NURSING PROGon 06-24-2022 NURSING PROG O ID: [id number] Author: Robyn Roman RN Service: ? Author Type: Registered Nurse Type: Nursing Progress Note Filed: 06/24/2022 2:21 PM Note Text: Daily Note: Pt in day area at change of shift, meal and medication compliant. She will be discharged today, field underwriter attempted multiple time to call facility however was left on hold then disconnected. Broset Score-0 [facility] NURSING PROG HNO ID: [id number] Author: Zelda Serrano RN Service: Behavioral Health Author Type: Registered Nurse Type: Nursing Progress Note Filed: 06/24/2022 6:19 AM Note Text: Other: Pt is resting quietly in bed; monitor for safety q 15 min. Broset 1 0600 pt slept 7 hrs [facility] [id number] Author: Albert Bryan RN Service: Behavioral Health Author Type: Registered Nurse Type: Nursing Progress Note Filed: 06/24/2022 12:12 AM Note Text: Other: Assumed care of patient at 1930. She was out in the day area seated on christine-chair. She was calm and pleasant. Alert and oriented to self only. She was nonsensical during the shift assessment. No signs of distress noted, she was observed to be interacting with some of the patients in the unit. Behavior at this time is in control. She took her medications crushed with ice cream. She is one assist. Closely monitored for behavioral changes and safety measures maintained at all times. Broset score-2 (Confused and irritable at times. 2221: She was restless at this time screaming for help. She was not able to follow redirection. Medicated with Ativan 0.5 mg PO. Will continue to monitor. 2300: She was ushered to her room and placed on bed comfortably. She was calm and pleasant at this time. Mood was observed to be labile. Every 15 minutes rounds observed at all times. [facility] NURSING PROGon 06-23-2022 NURSING PROG HNO ID: [id number] Author: Wesley Espinal RN Service: Nursing Author Type: Registered Nurse Type: Nursing Progress Note Filed: 06/23/2022 5:11 PM Note Text: Other: Assumed care of patient 0730. Patient seen out in day area in christine chair for safety. Patient is friendly but labile. Patient appears restless. Occasionally yelling out or smacking table but is redirectable at this time. Patient 1x assist to bathroom. Patient denies pain. Patient med compliant crushed in ice cream. Will continue to monitor. 1340: Patient very restless and banging on table and yelling out disturbing the unit. PRN Versed IM 0.5mg given for anxiety at this time. 1500: Patient much more in control at this time and pleasant. Broset:2 Q15 minute safety checks maintained [facility] NURSING PROG HNO ID: [id number] Author: Albert Bryan RN Service: Behavioral Health Author Type: Registered Nurse Type: Nursing Progress Note Filed: 06/23/2022 7:53 AM Note Text: Other: Assumed care of patient at 1930. She was out in the day area seated on christine-chair. She was calm and quiet. No signs of distress noted. She is alert and oriented to self only. She was pleasantly confused. Unable to to assessment due to mental status, she was nonsensical.She took her medications crushed with ice cream. Broset score -1. 0415: Patient at this time restless, she was yelling for help and not able to follow redirection. She was agitated when asked to stay in bed. She was screaming. Will continue to monitor. 0600: Patient slept for about 5 hours. She was out in the day area now calm and pleasant. Will continue to monitor. [facility] NURSING PROGon 06-22-2022 NURSING PROG HNO ID: [id number] Author: Robyn Roman RN Service: ? Author Type: Registered Nurse Type: Nursing Progress Note Filed: 06/22/2022 6:44 PM Note Text: Daily Note: Pt in bed at change of shift,meal and medication compliant, pt behavior is in control for most of the shift, she has been yelling out but easily redirectable. Broset Score-0 [facility] NURSING PROG HNO ID: [id number] Author: Mar Barros RN Service: Nursing Author Type: Registered Nurse Type: Nursing Progress Note Filed: 06/22/2022 6:48 AM Note Text: Nurse assumed care of patient at 1930. Patient sitting in christine chair in day area. Pleasant to speak with, denies any issues or complaints for the staff at this time. Patient compliant with medicaitons crushed in pudding. Patient denies any other issues or complaints for the staff at this time. 0630: Patient slept approximately 8 hours without issues or complaints. Patient compliant with medication whole with water this morning. Sitting in day area reading a magazine, in good spirits. [facility] CASE MANAGEMon 06-21-2022 CASE MANAGEM HNO ID: [id number] Author: LATRICE Munoz Service: Social Work Author Type: Plater Production Type: Care Mgt Progress Note Filed: 06/21/2022 1:20 PM Note Text: BEHAVIORAL HEALTH SOCIAL WORK PROGRESS NOTE SERVICE DATE: 06/21/2022 SERVICE TIME: 1320 Pt is scheduled for discharge on Friday06/24/22 to [facility]. Transport is scheduled for 2:00 pm via [facility] (trip #[id number]). Pt will need LOC and SW to submit for one on Friday morning prior to discharge. SW to follow. SIGNATURE: LATRICE Munoz PATIENT NAME: Chay Teague DATE: June 21, 2022 TIME: 8:53 AM [facility] NURSING PROGon 06-21-2022 NURSING PROG HNO ID: [id number] Author: Teo López RN Service: Behavioral Health Author Type: Registered Nurse Type: Nursing Progress Note Filed: 06/21/2022 5:46 PM Note Text: Other: Daily Note 1730 Assumed care of pt at 0730 observed in room resting no signs of distress noted. Pt med compliant whole with applesauce. Pleasant/calm and cooperative with care. Pt assist x1 for ambulation continent of B/B pt had BM this evening sharyn care provided. Pt appetite is good. Alert and awake. In control. No agitation noted. 15 min safety checks maintained. Will monitor. [facility] NURSING PROG HNO ID: [id number] Author: Taylor North RN Service: Nursing Author Type: Registered Nurse Type: Nursing Progress Note Filed: 06/21/2022 7:06 AM Note Text: Nursing Progress Note Patient Name: Chay Teague Patient Location[place] [address] [address] Daily Note: Received report and assumed care of patient at 1900. Patient seen in day area in christine chair. Drowsy during assessment. AANDO to self. Med compliant crushed in ice cream. Colace given whole in med cup, Patient took with water. Denies pain. Had snack in day area, fed self ice cream. Assist of 1 to room, incontinent of bladder. 0600 Patient slept 7 hrs, Broset-1. Refused morning Synthroid. This note was completed by: Taylor North [facility] CASE MANAGEMon 06-20-2022 CASE MANAGEM HNO ID: [id number] Author: LATRICE Munoz Service: Social Work Author Type: Plater Production Type: Care Mgt Progress Note Filed: 06/20/2022 2:18 PM Note Text: BEHAVIORAL HEALTH SOCIAL WORK PROGRESS NOTE SERVICE DATE: 06/20/2022 SERVICE TIME: 1:30 pm SW faxed updates to [facility] and spoke to director of orthopedics Estephania on the phone to notify of plan for discharge on Friday. SW to confirm discharge projection and schedule transportation. SW to follow. SIGNATURE: LATRICE Munoz PATIENT NAME: Chay Teague DATE: June 20, 2022 TIME: 2:17 PM [facility] NURSING PROGon 06-20-2022 NURSING PROG HNO ID: [id number] Author: Melisa Peña RN Service: Behavioral Health Author Type: Registered Nurse Type: Nursing Progress Note Filed: 06/20/2022 6:27 PM Note Text: Other: nursing progress 1354-pt was up on the unit in a gerichair for safety. Pt was med compliant crushed. Pt was one assist with ambulation to the bathroom pt continent of urine. Pt calm and cooperative no yelling out will monitor broset 2 1825-pt was up on the unit for dinner. Pt was med compliant. Pt was incontinent of bm and continent of urine. Pt cooperative with hands on care. Will monitor [facility] NURSING PROG HNO ID: [id number] Author: Zelda Serrano RN Service: Behavioral Health Author Type: Registered Nurse Type: Nursing Progress Note Filed: 06/20/2022 6:09 AM Note Text: Other: Pt visible in day area for observation; Pt appears to be sleepy given 50 mg trazodone at 0151. Med compliant whole with water 2 assist with getting patient out of bed; alert and orient to self; mix continent. Broset 1 0600 pt slept 4 hrs ; am care completed then pt resumed sleeping. [facility] NURSING PROG HNO ID: [id number] Author: Nakul Allan RN Service: ? Author Type: Registered Nurse Type: Nursing Progress Note Filed: 06/19/2022 10:56 PM Note Text: Assumed care of patient at 1530. Patient denies pain, SI/HI/AVH. Patient at 2000 complaining of pain and wanting her medications. Gave patient medications and tylenol. At 2099 patient put into bed and is denying patient. Patient began hitting the side of her bed and yelling out the names of family members very loudly and attempting to ambulate unassisted. Patient taken back out into the day area for closer observation. No additional issues at this time. [facility] NURSING PROGon 06-19-2022 NURSING PROG HNO ID: [id number] Author: Teo López RN Service: Behavioral Health Author Type: Registered Nurse Type: Nursing Progress Note Filed: 06/19/2022 10:01 AM Note Text: Other: Daily Note 0959 Assumed care of pt at 0730 observed in day area awake no signs of distress noted. Pt up in christine chair for safety and falls risk. Pt A/O to self confused redirectable. Pt is pleasant/calm and cooperative with care. Mixed continence. Assist x1 for ambulation. Pt is [place]. Pt medication compliant whole with applesauce constant encouragement. No behavioral issues noted at this moment. No agitation noted. 15 min safety checks maintained. Will monitor [facility] NURSING PROG HNO ID: [id number] Author: Vitaliy Basurto RN Service: Nursing Author Type: Registered Nurse Type: Nursing Progress Note Filed: 06/19/2022 7:58 AM Note Text: Other: 2100 Pt was seen awake and pleasant upon approach sitting in a christine-chair in the day area but a little irritable when vital signs were taken. Pt is confused, [place] and needs constant cuing and encouragement with meds and ADLs. Pt took meds whole with water. Pt was able to have her needs known like toileting; she was continent with urine at this time. Ambulated with assist due to unsteady gait. No behavioral issue noted. Safety precautions maintained. Broset - 2 0330 Pt awake in bed, nonsensical, confused. Incontinent of urine, sharyn-care provided. Pt went back to sleep after diaper changed. 0700 Slept 7 hrs. [facility] CASE MANAGEMon 06-18-2022 CASE MANAGEM HNO ID: [id number] Author: LATRICE Munoz Service: Social Work Author Type: Plater Production Type: Care Mgt Progress Note Filed: 06/18/2022 10:50 AM Note Text: BEHAVIORAL HEALTH SOCIAL WORK PROGRESS NOTE SERVICE DATE: 06/18/2022 SERVICE TIME: 0900 provided update to Pt's daughter Rachel Riojas ([phone]) as Pt's other daughter, Jennifer Gwen, is on vacation this week. Pt unable to discharge until at least 06/22/22 when new insurance (in network with [facility]) goes into effect. SW to follow. SIGNATURE: LATRICE Munoz PATIENT NAME: Chay Teague DATE: June 18, 2022 TIME: 9:18 AM [facility] NURSING PROGon 06-18-2022 NURSING PROG HNO ID: [id number] Author: Teo López RN Service: Behavioral Health Author Type: Registered Nurse Type: Nursing Progress Note Filed: 06/18/2022 10:08 AM Note Text: Other: Daily Note 1000 Assumed care of pt at 0730 observed in day area up in christine chair for safety and falls risk. Pt med compliant whole with applesauce one at a time with lots of encouragement. Pt calm and pleasant upon approach. Tremors noted. Appetite is good. Pt is [place]. A/O to self pleasantly confused. No behavioral issues noted. 15 min safety checks maintained. Will monitor. [facility] NURSING PROG HNO ID: [id number] Author: Taylor North RN Service: Nursing Author Type: Registered Nurse Type: Nursing Progress Note Filed: 06/18/2022 6:07 AM Note Text: Nursing Progress Note Patient Name: Chay Teague Patient Location: [place] [id number] - Daily Note: Received report and assumed care of Patient at 1900. Patient seen in day area in christine chair. Medications initially given whole in pudding but patient spit out. Med compliant crushed in pudding except Colace, which Patient continued to spit out. Patient can be anxious at times, calling out for help and asking if she is alright. Assist of 1 to room. Incontinent of bladder this evening. 0600 Patient slept 7 hrs, Broset-1. This note was completed by: Taylor North [facility] THERAPY NTon 06-18-2022 THERAPY NT HNO ID: [id number] Author: Bre Roberts PT Service: Physical Therapy Author Type: Physical Therapist Type: Therapy (PT/OT/Speech/Resp) Filed: 06/18/2022 4:15 PM Note Text: Physical Therapy Treatment SERVICE DATE: 06/18/2022 SERVICE TIME: 1514 to 1541 ROOM: [place] [address] Recommended Discharge Disposition: Subacute/SNF Recommended Discharge Disposition Comments: patient presently demonstrated LE instabililty during standing; wide base of support, shuffling gait and ineffective use of her ww; rehab to maximize mobility safety Recommended Discharge Disposition Due to: ADL impairment resulting in caregiver dependence;Patient requires daily, facility-based rehabilitation from at least one discipline due to:;complex equipment needs;new / worsened cognitive deficits related to current diagnosis Anticipated Discharge Needs: Undetermined Physical Assist at Home for: Ambulation;Cleaning;Laund ry;Meals;Medication Management;Safety;Self Care;Shopping;Transportat ion Supervision at Home due to: Impaired cognition;Decreased safety awareness Recommended Discharge Equipment: To Be Determined PT 6 Clicks Score: 17 Precautions/Activity Restrictions: Fall Risk Current Hospital Course: Alzheimer Dementia with behavioral disturbance Reason for Hospital Admission: increased confusion Relevant Past Medical History: advanced age, BMI 34.17; [place], HTN, asthma, hypothyroid, dementia, anxiety/depression Response to Therapy Interventions: Good participation in activities, Multiple ongoing medical issues, Needs frequent redirection or re-instruction, Requires additional time to complete activities, Requires encouragement to complete activities Assessment Comments: patient engagement is limited, hearing deficit and emotions limit communication; functional mobility declined relative to initial evaluation Physical Therapy Problem List: Safety Deficits;Impaired Self Care;Decreased Strength;Functional Mobility Impairment;Balance Impaired Treatment Interventions: Education;Energy Conservation Training;Self Care / Home Management;Joint Mobility;Strengthening;Ba pablito Training Home Environment Patient Lives With: Other: See Comment (Lives alone, has caregivers during the day and family checks in at night.) Comments: Lives alone, has caregivers during the day and family checks in at night. Assistance Available: highway patrol officer Prior Functional Level: Required Assistance Assistance Required With: Cleaning;Laundry;Meals;Se lf Care;Shopping;Transportat ion Prior Functional Level Comments: Pt was unable to provide a history. Per pts chart, she lives alone in a condo but has caregivers during the day and family stops by at night. It is probable that she was getting assistance from caregivers and family for ADL's and IADL's. Pt was amb ind as she was found wandering the neighborhood alone. Patient Report: moaning without specific complaints; minimal verbalizations, limited engagement due to significant [place]; states name and CURRENT FUNCTIONAL STATUS: Most recent performance Current Functional Mobility Assist Level Additional Information Rolling Supine to Sit Sit to Supine Scooting Verbal Cues Only Sit to Stand Minimal Assistance (cue dependent hand placement) Stand to Sit Contact Guard Assistance Bed to Chair Minimal Assistance (for safety; cues for complete turn to sit) Bed To Chair Transfer Type: Stepping Bed To Chair Transfer Equipment: Wheeled Walker Toilet/Commode Gait Minimal Assistance (ongoing placement corrections and cues) Gait Device: Wheeled Walker;With Wheelchair Follow Gait Distance (feet): 10, 30 x 2 Stairs Curb Step Car Transfer Blank santoyo indicate activity not attempted General Deviations/Observations: Wide base of support;Improper distancing from assistive device;Lateral sway increased;Shuffling Gait (initial knees instability and vertical oscillation) Balance: Static Sitting;Dynamic Sitting;Static Standing;Dynamic Standing Static Sitting Balance: Normal Patient able to maintain steady balance without handhold support Dynamic Sitting Balance: Normal Patient accepts maximal challenge and can shift weight easily within full range in all directions Static Standing Balance: Fair Patient able to maintain balance with handhold support, may require occasional minimal assistance Dynamic Standing Balance: Poor Patient unable to accept challenge or move without loss of balance Activity Tolerance: Sitting Activity;Standing Activity Sitting Activity: 15 Sitting Activity Tolerance (in minutes): 15 Standing Activity: ambulation Standing Activity Tolerance (in minutes): 3 (fatigue) JH-HLM: 7: Walk 25 feet or more Learning/Educational Needs: Functional Activities/Mobility;Plan of Care Goals for Plan of Care: Patient /Caregiver Goals: Go Home Goals: Patient will demonstrate understanding of importance of mobility during hospital stay and resolve all f (more content not included)... [facility] NURSING PROGon 06-17-2022 NURSING PROG HNO ID: [id number] Author: Melisa Peña RN Service: Behavioral Health Author Type: Registered Nurse Type: Nursing Progress Note Filed: 06/17/2022 3:12 PM Note Text: Other: nursing progress 1510-pt was in bed until lunch this am. Pt was med compliant this am in applesauce. Pt was cooperative with hands on care. Pt ambulated with one assist. Pt up in gerichair for safety in the day area. Pt has been calm and cooperative will monitor broset 1 [facility] NURSING PROG HNO ID: [id number] Author: Vitaliy Basurto RN Service: Nursing Author Type: Registered Nurse Type: Nursing Progress Note Filed: 06/17/2022 7:01 AM Note Text: Other: 2129 Pt seems to be more quiet in the day area. No yelling out or tapping the table noted. Behavior in control. Appeared calm and cooperative. Pt was confused, rambling nonsensically when trying to engage or when asked but maintained eye contact. Compliant with meds crushed in pudding this evening. Cooperative with hands on care, assist x 1-2 for transfer/ADLs. Needs attended. Routine rounding maintained. Broset-1. 0700 Slept for 8 hrs. Cooperative with hands on care. [facility] NURSING PROGon 06-16-2022 NURSING PROG HNO ID: [id number] Author: Manda Proctor RN Service: Nursing Author Type: Registered Nurse Type: Nursing Progress Note Filed: 06/16/2022 12:01 PM Note Text: Daily Note: Pt refused breakfast this morning and requested to sleep in. Appears drowsy. Nonsensical speech and unable to answer nursing assessment questions. Confused and alert to self only. 1 assist needed for ambulation and incontinence care. Yells out randomly, Help me mama, but is unable to verbalize what she needs help with. Took all medications in applesauce but she needed a lot of encouragement. 2 granddaughters in to visit this afternoon. Will continue to monitor. [facility] NURSING PROG HNO ID: [id number] Author: Vitaliy Basurto RN Service: Nursing Author Type: Registered Nurse Type: Nursing Progress Note Filed: 06/16/2022 7:18 AM Note Text: Other: 1999 Pt seen awake, oriented to self, confused, nonsensical, sitting in a christine-chair in the day area. Appeared restless at times but redirectable. Compliant with meds in pudding. Assist x 1-2 for toileting/ADLs, cooperative with care. Pt denies c/o discomfort. Needs attended. Safety checks maintained. Broset -1. 0700 Slept for 7 hrs. [facility] NURSING PROGon 06-15-2022 NURSING PROG HNO ID: [id number] Author: Soniya Hubbard RN Service: Nursing Author Type: Registered Nurse Type: Nursing Progress Note Filed: 06/15/2022 1:54 PM Note Text: Nursing Progress Note Topic of Note: Daily Note Chay Teague [id number] Assumed care of the pt at 0700. The pt is AANDOX1, confused and forgetful. Pt C/O no pain or discomfort at this time. The pt is disruptive at times calling out please help me help me while tapping on the table. Pt is redirectable. The pt is medication compliant whole. The pt is pleasant on approach.the pt is [place]. The pt is an assist for all care. The pt is incontinent. Pt up in the day area for close monitoring. 15 min safety checks maintained. Will continue to monitor. This note was completed by: Soniya Hubbard [facility] CASE MANAGEMon 06-14-2022 CASE MANAGEM HNO ID: [id number] Author: LATRICE Munoz Service: Social Work Author Type: Plater Production Type: Care Mgt Progress Note Filed: 06/14/2022 2:38 PM Note Text: BEHAVIORAL HEALTH SOCIAL WORK PROGRESS NOTE SERVICE DATE: 06/14/2022 SERVICE TIME: 1320 SW called Estephania in [facility] admissions ([phone]) and provided detailed update. SW to await return phone call. No specific discharge date identified at this time. SW to follow. Update 1430: SW received return call from facility stating that admission would have to wait until appropriate insurance is in place on 06/22/22. SIGNATURE: LATRICE Munoz PATIENT NAME: Chay Teague DATE: June 14, 2022 TIME: 8:31 AM [facility] NURSING PROGon 06-14-2022 NURSING PROG HNO ID: [id number] Author: Mendez Nguyen RN Service: ? Author Type: Registered Nurse Type: Nursing Progress Note Filed: 06/15/2022 6:02 AM Note Text: Other: Patient Name: Chay Teague SERVICE DATE: June 14, 2022 SERVICE TIME: 9:26 PM Pt has been up in the day area calm and cooperative. General appearance is well groomed in hospital gown. Pt is confused on approach and was medication compliant. Appetite is good. No acute distress or behavioral issues observed at this time. Will continue to monitor pt q 15 minutes on rounds for safety. 0600 Pt slept 7 hours Treatment Plan: Reviewed. Will continue written plan of care. Signature: Mendez Nguyen RN Date: June 14, 2022 Time: 9:26 PM [facility] NURSING PROG HNO ID: [id number] Author: Corrina Chandler RN Service: Nursing Author Type: Registered Nurse Type: Nursing Progress Note Filed: 06/14/2022 7:07 PM Note Text: Other: Pt. Is visible on this unit. No s/s of distress noted. Compliant with medications. Continues to be confused. Constantly asking staff for help and if she's ok. Fair appetite for meals. Will continue to monitor. [facility] NURSING PROG HNO ID: [id number] Author: Albert Bryan RN Service: Behavioral Health Author Type: Registered Nurse Type: Nursing Progress Note Filed: 06/14/2022 6:14 AM Note Text: Other: Assumed care of patient at 1930. She was out in the day area seated on christine-chair.She was very confused oriented to self only. She always say Am I good? She took her medications whole with pudding. She is one assist and continent. No signs of distress noted. Closely monitored for behavioral changes and safety measures maintained at all times. Broset score-1 (Confused). 0600: patient slept for about 7 hours. Patient still in bed at this time asleep. Will continue to monitor. [facility] CASE MANAGEMon 06-13-2022 CASE MANAGEM HNO ID: [id number] Author: LATRICE Munoz Service: Social Work Author Type: Plater Production Type: Care Mgt Progress Note Filed: 06/13/2022 11:12 AM Note Text: BEHAVIORAL HEALTH SOCIAL WORK PROGRESS NOTE SERVICE DATE: 06/13/2022 SERVICE TIME: 1100 Pt sleep remains poor, during the day she is visible on unit but confused. She frequently slaps table with open palm and calls out for help for no obvious reason. Pt continues to appear somewhat guarded and distrusting of everyone except on of her daughters. Daughter was able to complete enrollment for [facility] dual advantage, effective date 06/22/22. SW to update facility and determine particulars of admission policy regarding future coverage. SW to follow. SIGNATURE: LATRICE Munoz PATIENT NAME: Chay Teague DATE: June 13, 2022 TIME: 11:10 AM [facility] NURSING PROGon 06-13-2022 NURSING PROG HNO ID: [id number] Author: Melisa Peña RN Service: Behavioral Health Author Type: Registered Nurse Type: Nursing Progress Note Filed: 06/13/2022 5:32 PM Note Text: Other: nursing progress 1730-pt was up on the unit seated in the gerichair for safety. Pt was med compliant whole and crushed in apple sauce. Pt was calm and in control this shift. Pt was showered this am and toileted. Pt cooperative with hands on care. Pt fed herself dinner. Pt's daughter in to visit this yudith will monitor broset 2 [facility] NURSING PROG HNO ID: [id number] Author: Vitaliy Basurto, LENIN Service: Nursing Author Type: Registered Nurse Type: Nursing Progress Note Filed: 06/13/2022 6:07 AM Note Text: Other: 0000 Assumed care of pt. Received pt sleeping in bed, no signs of distress noted. No behavioral issue noted. Safety precautions maintained. 0700 Pt slept well for 9 hrs throughout the night. Behavior in control. Broset -1 (confused) [facility] NUTRITIONon 06-13-2022 NUTRITION HNO ID: [id number] Author: Yoly Pan RD Service: Nutrition Therapy Author Type: Registered Dietitian Type: Nutrition Filed: 06/13/2022 1:14 PM Note Text: NUTRITION THERAPY SCREEN NOTE SERVICE DATE: 06/13/2022 SERVICE TIME: Care Plan: Continue current diet Reports she is eating well. Reviewed Epic - no weight hx (appears well nourished on screen) and tolerating diet >75% PO. Intake History: Nutrition Intake Prior to Admission: Greater than 75% estimated energy needs greater than or equal to 5 days Current Nutrition Intake: Greater than 75% estimated energy needs Current Intake Over time: Greater than or equal to 7 days Diet Orders (From admission, onward) Start Ordered 06/06/22 0615 DIET HEART HEALTHY START NOW Question: Heart Healthy Answer: 2 GM SODIUM (LOW SAT FAT) 06/06/22 0610 Anthropometrics: Height: 155 cm (5' 1.02) (estimate, pt GRECIA due to mental status) Weight: 82.1 kg (181 lb) MNT Billing: $ Initial Assessment: 1-15 minutes SIGNATURE: Yoly Pan RD PATIENT NAME: Chay Teague DATE: June 13, 2022 TIME: 1:14 PM [facility] CASE MANAGEMon 06-12-2022 CASE MANAGEM HNO ID: [id number] Author: LATRICE Munoz Service: Social Work Author Type: Plater Production Type: Care Mgt Progress Note Filed: 06/12/2022 1:50 PM Note Text: BEHAVIORAL HEALTH SOCIAL WORK PROGRESS NOTE SERVICE DATE: 06/12/2022 SERVICE TIME: 1200 SW faxed clinicals to [facility]. director consumer affairs informed SW that they are not in network with [employer] and only have [employer]. ASHLEY called Pt's daughter to update and she states that she will apply for [employer] and that [facility] remain their first FOC. ASHLEY updated facility as to same. SIGNATURE: LATRICE Munoz PATIENT NAME: Chay Teague DATE: June 12, 2022 TIME: 1:19 PM [facility] NURSING PROGon 06-12-2022 NURSING PROG HNO ID: [id number] Author: Leticia Barker RN Service: Nursing Author Type: Registered Nurse Type: Nursing Progress Note Filed: 06/12/2022 11:46 PM Note Text: Other: Received report from day shift, patient is up in the gerichair in the day area, awake, oriented to self, calm, guarded on approach, no c/o this time. No agitation, total care , assist of 2 w/ ADls. Wearing depend for incontinence. Needs assistance w/ dinner patient refusing . Compliant w/ hs meds in pudding, no PRNs given. Broset-1, will continue assault, fall precs. [facility] NURSING PROG HNO ID: [id number] Author: Iva Bailey RN Service: Behavioral Health Author Type: Registered Nurse Type: Nursing Progress Note Filed: 06/12/2022 2:46 PM Note Text: Other: 0730 assume care, Patient AANDO 1 only. Patient medication compliant whole in applesauce. Cooperative with physical assessment. Patient ate well. Patient restless at times, yelling and hitting table and stated take me take me. Patient able to direct. , nonsensical speech. denies pain patient in Juan Alberto chair, . In day area, No hallucinations or delusions are noted, anxious, Will cont to monitor. [facility] NURSING PROG HNO ID: [id number] Author: Gilbert Watson RN Service: ? Author Type: Registered Nurse Type: Nursing Progress Note Filed: 06/12/2022 7:01 AM Note Text: Daily Note: 2300- Patient is in day area this evening watching TV for closer monitoring, confuse but no episodes of agitation, nonsensical speech, repetitive of her words at times, cooperative with care. Patient is compliant of her HS medications given crushed in applesauce, no signs of any discomforts noted. 0700- Patient slept 3 hours throughout the night, incontinent of bladder and a medium sized BM. Ativan po given at 0658 for anxiety and restlessness with random yelling this morning while in day area. [facility] CASE MANAGEMon 06-11-2022 CASE MANAGEM HNO ID: [id number] Author: LATRICE Munoz Service: Social Work Author Type: Plater Production Type: Care Mgt Progress Note Filed: 06/11/2022 1:50 PM Note Text: BEHAVIORAL HEALTH SOCIAL WORK PROGRESS NOTE SERVICE DATE: 06/11/2022 SERVICE TIME: 1300 ASHLEY received return call from Estephania in admissions at [facility]. She states that Pt would be coming LTC and would need a PAS (ASHLEY submitted for one and received favorable determination). She provided fax: [phone] for clinical information and her work cell for updates: [phone]. ASHLEY to send updated information. ASHLEY to follow. SIGNATURE: LATRICE Munoz PATIENT NAME: Chay Teague DATE: June 11, 2022 TIME: 9:17 AM [facility] NURSING PROGon 06-11-2022 NURSING PROG HNO ID: [id number] Author: Melisa Peña RN Service: Behavioral Health Author Type: Registered Nurse Type: Nursing Progress Note Filed: 06/11/2022 5:44 PM Note Text: Other: 1453-nursing progress pt was up on the unit seated in the gerichair for safety. Pt was med compliant in applesauce. Pt did yell out MOM once in awhile. Pt did ambulate to the bathroom. Pt continent of urine. Will monitor broset 2 1743-pt was up on the unit seated in the gerichair. Pt was fed her dinner. Pt was toileted and continent of urine and bm. Pt calm and cooperative will monitor [facility] NURSING PROG HNO ID: [id number] Author: Taylor North RN Service: Nursing Author Type: Registered Nurse Type: Nursing Progress Note Filed: 06/11/2022 6:16 AM Note Text: Nursing Progress Note Patient Name: Chay Teageu Patient Location: [place] [id number] Daily Note: Received report and assumed care of patient at 1900. Patient seen in day area in christine chair. Pleasantly confused. Friendly with other patients and staff. Can be intrusive at times, observed patting other Patient's knee. Credit Advisor redirected Patient and educated on appropriate behavior. Patient cooperative with teaching. Med compliant whole in applesauce, but did spit out Colace gel capsule several times due to confusion. Denies pain. Assist of 1 to room. Safety maintained. 0600 Patient slept 5 hrs, Broset-1. This note was completed by: Taylor North [facility] THERAPY NTon 06-11-2022 THERAPY NT HNO ID: [id number] Author: Amarilys Salguero PTA Service: Physical Therapy Author Type: Trauma Counsellor Type: Therapy (PT/OT/Speech/Resp) Filed: 06/11/2022 1:16 PM Note Text: ----- Attestation signed by Lisa Perez PT at 06/11/2022 1:24 PM I reviewed and agree with the documentation corresponding to this therapy visit. SIGNATURE: Lisa Perez, PT DATE: June 11, 2022 TIME: 1:24 PM ----- Physical Therapy Treatment SERVICE DATE: 06/11/2022 SERVICE TIME: 1155 to 1220 ROOM: [place] [address] Recommended Discharge Disposition: Home PT Recommended Discharge Disposition Comments: Home PT with 14/04 care. Anticipated Discharge Needs: Undetermined Physical Assist at Home for: Ambulation;Cleaning;Laund ry;Meals;Medication Management;Safety;Self Care;Shopping;Transportat ion Supervision at Home due to: Impaired cognition;Decreased safety awareness Recommended Discharge Equipment: No equipment needs anticipated PT 6 Clicks Score: 19 Precautions/Activity Restrictions: Fall Risk;Impulsive with Activity Current Hospital Course: 77 y/o female presented to the ED 06/05/2022 from home due to increased confusion. She was found wandering the neighborhood by police and her family was contacted to take her home. Urinalysis found UTI. She was admitted for further care. Reason for Hospital Admission: increased confusion Relevant Past Medical History: dementia, HTN, hypothyroidism Response to Therapy Interventions: Good participation in activities Continue skilled needs due to: Functional mobility/skill impairments, Safety concerns Physical Therapy Problem List: Safety Deficits;Impaired Self Care;Decreased Strength;Functional Mobility Impairment;Balance Impaired Treatment Interventions: Education;Energy Conservation Training;Self Care / Home Management;Joint Mobility;Strengthening;Ross kenney Training Plan for next visit: Bed mobility, Fall prevention, Family instruction, Gait training, Exercise instruction/handout, Pre-gait activities, Sit to Stand Transfers, Sitting balance, Standing Balance Home Environment Patient Lives With: Other: See Comment (Lives alone, has caregivers during the day and family checks in at night.) Comments: Lives alone, has caregivers during the day and family checks in at night. Assistance Available: highway patrol officer Prior Functional Level: Required Assistance Assistance Required With: Cleaning;Laundry;Meals;Se lf Care;Shopping;Transportat ion Prior Functional Level Comments: Pt was unable to provide a history. Per pts chart, she lives alone in a condo but has caregivers during the day and family stops by at night. It is probable that she was getting assistance from caregivers and family for ADL's and IADL's. Pt was amb ind as she was found wandering the neighborhood alone. Patient Report: Patient is AOx1 awake and agreeable to therapy ex and amb . Just tell me what to do . CURRENT FUNCTIONAL STATUS: Most recent performance Current Functional Mobility Assist Level Additional Information Rolling Supine to Sit Sit to Supine Scooting Verbal Cues Only Sit to Stand Minimal Assistance Stand to Sit Contact Guard Assistance Bed to Chair Minimal Assistance Bed To Chair Transfer Type: Stepping Bed To Chair Transfer Equipment: Wheeled Walker Toilet/Commode Gait Minimal Assistance Gait Device: Wheeled Walker Gait Distance (feet): 30 ft x 2 Stairs Curb Step Car Transfer Blank santoyo indicate activity not attempted General Deviations/Observations: Daisy decreased;Flexed trunk posture;Shuffling Gait Balance: Static Sitting;Dynamic Sitting;Static Standing;Dynamic Standing Static Sitting Balance: Good Patient able to maintain balance without handhold support, limited postural sway Dynamic Sitting Balance: Good Patient accepts moderate challenge, able to maintain balance while picking up object off floor Static Standing Balance: Fair Patient able to maintain balance with handhold support, may require occasional minimal assistance Dynamic Standing Balance: Normal Patient accepts maximal challenge and can shift weight easily within full range in all directions Activity Tolerance: Sitting Activity;Standing Activity Sitting Activity: 15 Sitting Activity Tolerance (in minutes): 15 Standing Activity: transfers and amb Standing Activity Tolerance (in minutes): 8 JH-HLM: 7: Walk 25 feet or more Learning/Educational Needs: Discharge Plan;Family Education/Training;Functi onal Activities/Mobility;Plan of Care;Safety Goals for Plan of Care: Patient /Caregiver Goals: Go Home Goals: Patient will demonstrate understanding of importance of mobility during hospital stay and resolve all functional needs identified. Progress Toward Goals: Progressing as expected Rehab Potential: Go (more content not included)... [facility] Valproate SerPl-mCncon 06-11 Valproate [Mass/Vol] 49.5 ug/mL Low 50.0-100.0 [facility] Comment on above: Order Comment: Speci men Type: BLOOD SPECIMENOrdering Facility: [facility] Address: [address] [place], [place] [id number] Result Comment: Refe rence ranges and high/low indicator flags are provided as general guidelines only. The treating physician must determine appropriate target levels/dosing based on the specific clinical situation. Performed By: #### 4 086-5 ####[facility] LABORATORYCLIA [id number] [address] CASE MANAGEMon 06-10-2022 CASE MANAGEM HNO ID: [id number] Author: LATRICE Munoz Service: Social Work Author Type: Plater Production Type: Care Mgt Progress Note Filed: 06/10/2022 2:07 PM Note Text: BEHAVIORAL HEALTH SOCIAL WORK PROGRESS NOTE SERVICE DATE: 06/10/2022 SERVICE TIME: 1300 SW placed call to [facility] admission department. ASHLEY informed admission director was on other line but was able to leave detailed message for her, requesting confirmation that they have ECF services (as opposed to assisted living or SNF) as well as to confirm a fax number to which to send clinical updates prior to discharge. ASHLEY to follow. SIGNATURE: LATRICE Munoz PATIENT NAME: Chay Teague DATE: June 10, 2022 TIME: 2:05 PM [facility] NURSING PROGon 06-10-2022 NURSING PROG HNO ID: [id number] Author: Melisa Peña RN Service: Behavioral Health Author Type: Registered Nurse Type: Nursing Progress Note Filed: 06/10/2022 5:20 PM Note Text: Other: nursing [id number] was up on the unit seated in the gerichair for safety pt was one assist with walking to the bathroom. Pt incontinent of urine and bm. Pt was med compliant with medications in apple sauce. Pt had no agitation or aggressive behavior will monitor broset 2 1719-pt was up in chair for dinner. Pt was fed dinner. Pt ate well. Pt was calm and cooperative. Pt was assist x1 to the bathroom pt was incontinent of small stool. Pt cooperative with hands on care will monitor [facility] NURSING PROGon 06-09-2022 NURSING PROG HNO ID: [id number] Author: Mendez Nguyen RN Service: ? Author Type: Registered Nurse Type: Nursing Progress Note Filed: 06/10/2022 6:04 AM Note Text: Other: Patient Name: Chay Teague SERVICE DATE: June 09, 2022 SERVICE TIME: 9:49 PM Pt has been up in the day area calm and in control. General appearance is well groomed in hospital gown. Pt is confused on approach and was medication compliant. Appetite is good. No acute distress or behavioral issues observed at this time. Will continue to monitor pt q 15 minutes on rounds for safety. 0600 Pt slept 8 Treatment Plan: Reviewed. Will continue written plan of care. Signature: Mendez Nguyen RN Date: June 09, 2022 Time: 9:49 PM [facility] NURSING PROG HNO ID: [id number] Author: Teo López RN Service: Behavioral Health Author Type: Registered Nurse Type: Nursing Progress Note Filed: 06/09/2022 3:50 PM Note Text: Other: Daily Note 1735 Assumed care of pt at 0730 observed in day area up in christine chair for safety and falls risk. Pt med compliant whole with applesauce one at a time. Pt restless, very confused frequently redirected Ativan PO PRN given with good results. Pt stand by assist with ambulation. Appetite is good. 15 min safety checks maintained. Will monitor. [facility] NURSING PROGon 06-08-2022 NURSING PROG HNO ID: [id number] Author: Mendez Nguyen RN Service: ? Author Type: Registered Nurse Type: Nursing Progress Note Filed: 06/09/2022 6:07 AM Note Text: Other: Patient Name: Chay Teague SERVICE DATE: June 08, 2022 SERVICE TIME: 10:32 PM Pt has been up in the day area calm and cooperative. General appearance is well groomed in hospital gown. Pt is pleasantly confused and was medication compliant. Appetite is good. No acute distress or behavioral issues observed at this time. Will continue to monitor pt q 15 minutes on rounds for safety. 0600 Pt slept 5 hours Treatment Plan: Reviewed. Will continue written plan of care. Signature: Mendez Nguyen RN Date: June 08, 2022 Time: 10:32 PM [facility] NURSING PROG HNO ID: [id number] Author: Gilbert Watson RN Service: ? Author Type: Registered Nurse Type: Nursing Progress Note Filed: 06/08/2022 7:10 AM Note Text: Daily Note: 2300- Patient is visible in the day area for closer observation, pleasantly confuse, cooperative with care, no episodes of agitation, nonsensical speech. Patient is compliant of her HS medications given crushed in applesauce, no signs of any discomforts noted. 0630- Patient slept 8 hours throughout night, remained cooperative with care, incontinent of bladder. [facility] CASE MANAGEMon 06-07-2022 CASE MANAGEM HNO ID: [id number] Author: LATRICE Munoz Service: Social Work Author Type: Plater Production Type: Care Mgt Progress Note Filed: 06/07/2022 12:14 PM Note Text: BEHAVIORAL HEALTH SOCIAL WORK PROGRESS NOTE SERVICE DATE: 06/07/2022 SERVICE TIME: 12:00 pm Pt discussed in treatment team and observed on unit. Pt does appear more alert and organized than on previous day. She will remain inpatient through the weekend. SW to submit PAS on Friday (06/10/22) and follow units with [facility] with updated clinical information. SW to follow. SIGNATURE: LATRICE Munoz PATIENT NAME: Chay Teague DATE: June 07, 2022 TIME: 8:42 AM [facility] Lipid 1996 panelon 2 Cholesterol [Mass/Vol] 217 mg/dL High <200 [facility] Comment on above: Order Comment: Speci men Type: BLOOD SPECIMENOrdering Facility: [facility] Address: [address] [place] [address] Result Comment: <200 mg/dL, Desirable 200-239 mg/dL, Borderline high >239 mg/dL, High Performed By: #### 2 4331-1 ####[facility]ATORYCLIA [id number] [place] [address] [place] Cholesterol in HDL [Mass/Vol] 75 mg/dL Normal >39 [facility] Comment on above: Order Comment: Speci men Type: BLOOD SPECIMENOrdering Facility: [facility] Address: [address] [place] [address] Result Comment: 40-5 9 mg/dL, Acceptable >59 mg/dL, High: Negative risk factor for coronary heart disease <40 mg/dL, Low: Positive risk factor for coronary heart disease Performed By: #### 2 4331-1 ####[facility]ATORYCLIA [id number] [address] [place] Cholesterol in LDL [Mass/Vol] 124 mg/dL High <100 [facility] Comment on above: Order Comment: Speci men Type: BLOOD SPECIMENOrdering Facility: [facility] Address: [address] [place] [address] Result Comment: <100 mg/dL, Optimal 100-129 mg/dL, Near optimal/above optimal 130-159 mg/dL, Borderline high 160-189 mg/dL, High >189 mg/dL, Very high Secondary prevention optimal LDL Cholesterol levels are recommended to be < 70 mg/dL Performed By: #### 2 4331-1 ####[facility]ATORYCLIA [id number] [place] [address] [place] Cholesterol in LDL/Cholesterol in HDL [Mass ratio] 1.65 {ratio} Normal <2.54 [facility] Comment on above: Order Comment: Speci men Type: BLOOD SPECIMENOrdering Facility: [facility] Address: [address] [place], [place] [id number] Result Comment: Brigitte zendejas: 1. National Cholesterol Education Program ATP III Guideline At-A-Glance Quick Desk Reference: National Heart, Lung, and Blood [place]. National Institutes of Health. 2001: NIH Publication No. 01-3305. 2. An International Atherosclerosis Society position paper: global recommendations for the management of dyslipidemia: executive summary, Atherosclerosis. 2014: 232(2):410-413. Performed By: #### 2 4331-1 ####[facility]ATORYCLIA [id number] [place] [address] [place] Cholesterol in VLDL [Mass/Vol] 18 mg/dL Normal <30 [facility] Comment on above: Order Comment: Shai men Type: BLOOD SPECIMENOrdering Facility: [facility] Address: [address] [place] [address] Performed By: #### 2 4331-1 ####[facility]ATORYCLIA [id number] [place] [address] [place] Cholesterol non HDL [Mass/Vol] 142 mg/dL High <130 [facility] Comment on above: Order Comment: Bisi naranjo Type: BLOOD SPECIMENOrdering Facility: [facility] Address: [address] [place] [address] Result Comment: <130 mg/dL, Optimal 130-159 mg/dL, Near optimal/above optimal 160-189 mg/dL, Borderline high 190-219 mg/dL, High >219 mg/dL, Very high Secondary prevention optimal non HDL Cholesterol levels are recommended to be <100 mg/dL Performed By: #### 2 4331-1 ####[facility]ORYCLIA [id number] [address] [place] Cholesterol.total/Chol esterol in HDL [Mass ratio] 2.89 {ratio} Normal <5.10 [facility] Comment on above: Order Comment: Bisi naranjo Type: BLOOD SPECIMENOrdering Facility: [facility] Address: [address] [place] [address] Performed By: #### 2 4331-1 ####[facility]ATORYCLIA [id number] [address] [place] FASTING TIME 8 hrs [facility] Comment on above: Order Comment: Speci men Type: BLOOD SPECIMENOrdering Facility: [facility] Address: [address] [place] [address] Performed By: #### 2 4331-1 ####[facility]ORATORYCLIA [id number] [address] [place] Triglyceride [Mass/Vol] 91 mg/dL Normal <150 [facility] Comment on above: Order Comment: Speci men Type: BLOOD SPECIMENOrdering Facility: [facility] Address: [address] [place] [address] Result Comment: <150 mg/dL, Normal 150-199 mg/dL, Borderline high 200-499 mg/dL, High >499 mg/dL, Very high Performed By: #### 2 4331-1 ####[facility]ORATORYCLIA [id number] [address] [place] NURSING PROGon 06-07-2022 NURSING PROG HNO ID: [id number] Author: Teo López RN Service: Behavioral Health Author Type: Registered Nurse Type: Nursing Progress Note Filed: 06/07/2022 12:28 PM Note Text: Other: Daily Note 1225 Assumed care of pt at 0730 observed in day area up in christine chair for safety and falls risk. Pt confused upon approach, a/o to self. Pt med compliant crushed in applesauce. Assist x1 for transfers and ambulation. MOM given for c/o of constipation. Pt [place], hearing aid on. Pt needs to be fed. Pt answer to every question is I dont know. Visible tremors on assessment. 15 min safety checks maintained. Will monitor. [facility] NURSING PROG HNO ID: [id number] Author: Gilbert Watson RN Service: ? Author Type: Registered Nurse Type: Nursing Progress Note Filed: 06/07/2022 6:53 AM Note Text: Daily Note: 2300- Patient is visible in the day area but keeps to herself, anxious and restless at times, confuse but cooperative with directions and care, nonsensical speech, no episodes of agitation. Patient is complaint of her HS medications given crushed with pudding, no signs of any discomforts noted. 0630- Patient slept 8 hours throughout the night, compliant of her 0600 medication, remained cooperative with care. [facility] ALLIED HEALTHon 06-06-2022 ALLIED HEALTH HNO ID: [id number] Author: MYRON Talbot Service: Recreational Therapy Author Type: Therapist Type: Allied Health Filed: 06/06/2022 8:29 AM Note Text: PERSONAL DE-ESCALATION PLAN BEHAVIORAL HEALTH SERVICE DATE: 06/06/2022 SERVICE TIME: 7:30 AM Personal De-Escalation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 waitlist at [facility]. [facility] NURSING PROG HNO ID: [id number] Author: Zelda Serrano RN Service: Behavioral Health Author Type: Registered Nurse Type: Nursing Progress Note Filed: 06/06/2022 5:16 AM Note Text: ----- Attestation signed by John Penny MD at 06/06/2022 6:20 AM agree ----- BEHAVIORAL HEALTH INITIAL INPATIENT INTERDISCIPLINARY TREATMENT PLAN DATE INITIATED: 06/06/2022 5:12 AM Patient's Goal of Treatment: unable to assess due to mental status There are no active hospital problems to display for this patient. Criteria for Discharge: Elimination/reduction of presenting behavior: dementia with behavioral disturbance Estimated length of stay: 7 Interdisciplinary Treatment Plan Date Initiated: 06/06/22 Time Initiated: 501 Patient Participation in Initial Treatment Plan: No Patient unable to participate due to : Mental status Other Participants: N/A Strengths/Assets: Social support;Stable living situation Limitations: Cognitive impairment;Physically dependent on others Precautions indicated: Routine Precautions Individualized problems: Alteration in thoughts and perception;Cognitive impairment Problem - Discharge Needs Date Initiated: 06/06/22 Time Initiated: 503 Discharge Needs: Patient/Family will participate in the development of the Discharge Aftercare Plan;Assess for appropriate level of care Interventions - Nursing: Obtain baseline level of functioning on admission;Administer medications as indicated and monitor patient for effect daily;Provide education to the patient and/or family about the disease process and management as appropriate daily and as needed;Provide non-judgmental supportive, empathetic and comprehensive trauma informed care daily and as needed;Use therapeutic communication skills to develop patient trust and a nurse-patient relationship daily and as needed;Assist with developing positive coping behaviors daily and as needed;Encourage independence with daily functioning daily and as needed;Monitor nutritional intake daily;Provide a quiet, restful environment to promote sleep/rest daily and as needed;Encourage patient participation in milieu activities daily and as needed Problem - Cognitive Impairment As evidenced by: Decline in activities of daily living;Disorientation;Poo r impulse control;Wandering or pacing;Hallucinations;Del usions;Confusion Disorientation: place;time Date Intiated: 06/06/22 Time Initiated: 050 Short Term Goals: Patient will demonstrate decrease in anxiety;Patient will comply with medication and treatment;Patient will demonstrate sleeping this number of hours per night;Patient will participate in toilet procedures every 2 hours;Patient will maintain adequate intake and output;Patient will participate in activities of daily living as able Goal hours of sleep: 7 Target Date Short Term Goals: 06/09/22 Progress Towards Short Term Goals: Progressing Gallery Or Museum Attendant Goals: Patient will have achieved optimal level of functioning;Patient will verbalize benefits of compliance with medication and treatment after discharge;Patient will participate in cognitive, physical and social activities Target Date Gallery Or Museum Attendant Goals: 06/13/22 Progress Towards Gallery Or Museum Attendant Goals: Progressing Interventions - Nursing: Offer frequent toileting as needed;Reorient the patient as needed;Provide non-judgmental supportive, empathetic and comprehensive trauma informed care daily and as needed;Provide education to the patient and/or family about the disease process and management as appropriate daily and as needed;Administer medications as indicated and monitor patient for effect daily;Use therapeutic communication skills to develop patient trust and a nurse-patient relationship daily and as needed;Assist with activities of daily living, utilizing any necessary assistive devices daily and as needed;Monitor nutritional intake daily;Provide a quiet, restful environment to promote sleep/rest daily and as needed;Encourage patient participation in milieu activities daily and as needed Problem - Mood Disorder As evidenced by: Complusive Behaviors;Delusions;Hallu cinations;Impaired Judgement;Inability to care for self Date Initiated: 06/06/22 Time Initiated: 509 Mood Disorder: Depression Short Term Goals: Patient will comply with medication and treatment PHQ-9 Patient Declined Staff in attendance and in agreement with this plan: Attending: Dr Penny Nurse: Zelda Serrano This plan was reviewed with patient/family. Attending Psychiatrist: Dr Penny DOCUMENTED BY: Zelda Serrano RN PATIENT NAME: Chay Teague DATE: June 06, 2022 TIME: 5:12 AM [facility] THERAPY NTon 06-06-2022 THERAPY NT HNO ID: [id number] Author: Shellie Saavedra OT/L Service: Occupational Therapy Author Type: Occupational Therapist Type: Therapy (PT/OT/Speech/Resp) Filed: 06/07/2022 9:56 AM Note Text: Occupational Therapy Evaluation SERVICE DATE: 06/06/2022 SERVICE TIME: 1330 to 1355 ROOM: [place] [address] Recommended Discharge Disposition: Home OT Anticipated Discharge Needs: Undetermined Physical Assist at Home for: Ambulation;Cleaning;Laund ry;Meals;Medication Management;Safety;Self Care;Shopping;Transportat ion Supervision at Home due to: Impaired cognition;Decreased safety awareness OT 6 Clicks Score: 19 Precautions/Activity Restrictions: Fall Risk;Impulsive with Activity Current Hospital Course: 77 y/o female presented to the ED 06/05/2022 from home due to increased confusion. She was found wandering the neighborhood by police and her family was contacted to take her home. Urinalysis found UTI. She was admitted for further care. Reason for Hospital Admission: increased confusion Relevant Past Medical History: dementia, HTN, hypothyroidism Occupational Therapy Problem List: Cognitive Deficit;Education Deficit;Safety Deficits;Impaired Self Care;Decreased Strength;Functional Mobility Impairment;Balance Impaired Treatment Interventions: Education;Self Care / Home Management;Functional Mobility Training;Balance Training Home Environment Patient Lives With: Other: See Comment (Lives alone, has caregivers during the day and family checks in at night.) Comments: Lives alone, has caregivers during the day and family checks in at night. Assistance Available: highway patrol officer Prior Functional Level: Required Assistance Assistance Required With: Cleaning;Laundry;Meals;Se lf Care;Shopping;Transportat ion Prior Functional Level Comments: Pt was unable to provide a history. Per pts chart, she lives alone in a condo but has caregivers during the day and family stops by at night. It is probable that she was getting assistance from caregivers and family for ADL's and IADL's. Pt was amb ind as she was found wandering the neighborhood alone. CURRENT FUNCTIONAL STATUS: Most recent performance Current Activities of Daily Living Assist Level Additional Information Feeding Set Up Grooming Supervision Bathing Upper Body Bathing Lower Body Dressing Upper Body Minimal Assistance Dressing Lower Body Minimal Assistance Toileting Minimal Assistance Functional Mobility Assist Level Additional Information Rolling Supine to Sit Sit to Supine Scooting Sit to Stand Minimal Assistance Stand to Sit Minimal Assistance Bed to Chair Toilet/Commode Shower Functional Mobility Minimal Assistance Wheeled Walker Blank santoyo indicate activity not attempted Balance: Static Sitting;Dynamic Sitting;Static Standing;Dynamic Standing Static Sitting Balance: Good Patient able to maintain balance without handhold support, limited postural sway Dynamic Sitting Balance: Good Patient accepts moderate challenge, able to maintain balance while picking up object off floor Static Standing Balance: Fair Patient able to maintain balance with handhold support, may require occasional minimal assistance Dynamic Standing Balance: Fair Patient accepts minimal challenge, able to maintain balance while turning head/trunk Learning/Educational Needs: Discharge Plan;Disease Process;Functional Activities/Mobility;Plan of Care;Precautions;Safety;S elf Care Goals for Plan of Care: Patient /Caregiver Goals: Go Home Goals: Patient will demonstrate progress with self-care, cognitive and/or coping needs identified to allow safe discharge to home with available support and/or physical assistance. Rehab Potential: Good Patient will be discontinued from Occupational Therapy when no further skilled needs are identified in this setting. PLAN: OT Frequency: 2 times per week Plan of Care developed with: Patient TREATMENT INTERVENTIONS: Therapy Diagnosis: Decreased activities of daily living (ADL) Interventions Provided: Evaluation;Self Residential Management (58182) $ Evaluation-Low (44170) Billed Units: 1 unit Self Residential Management (75619) Treatment Minutes: 10 $ Self Residential Management (63581) Billed Units: 1 unit Timed Code Treatment (minutes): 10 Skilled Treatment Time (minutes): 25 Please see discipline specific clinical documentation flowsheet for complete details for this therapy evaluation/treatment. SIGNATURE: Shellie Saavedra OT/Sheldon PATIENT NAME: Chay Teague DATE: June 06, 2022 TIME: 1:30 PM [facility] THERAPY NT HNO ID: [id number] Author: Bonnie Nuñez PT Service: Physical Therapy Author Type: Physical Therapist Type: Therapy (PT/OT/Speech/Resp) Filed: 06/06/2022 8:41 AM Note Text: Physical Therapy Evaluation SERVICE DATE: 06/06/2022 SERVICE TIME: 809 to 819 ROOM: [place] [address] Recommended Discharge Disposition: Home PT Recommended Discharge Disposition Comments: Home PT with 14/04 care. Anticipated Discharge Needs: Physical Assist at Home;Supervision at Home Physical Assist at Home for: Ambulation;Cleaning;Laund ry;Meals;Medication Management;Safety;Self Care;Shopping;Transportat ion Supervision at Home due to: Impaired cognition;Decreased safety awareness Recommended Discharge Equipment: No equipment needs anticipated PT 6 Clicks Score: 19 Precautions/Activity Restrictions: Fall Risk;Impulsive with Activity Current Hospital Course: 77 y/o female presented to the ED 06/05/2022 from home due to increased confusion. She was found wandering the neighborhood by police and her family was contacted to take her home. Urinalysis found UTI. She was admitted for further care. Reason for Hospital Admission: increased confusion Relevant Past Medical History: dementia, HTN, hypothyroidism Response to Therapy Interventions: Good participation in activities Continue skilled needs due to: Functional mobility/skill impairments, Safety concerns Physical Therapy Problem List: Safety Deficits;Impaired Self Care;Decreased Strength;Functional Mobility Impairment;Balance Impaired Treatment Interventions: Education;Strengthening;F unctional Mobility Training;Balance Training Plan for next visit: Bed mobility, Fall prevention, Family instruction, Gait training, Exercise instruction/handout, Pre-gait activities, Sit to Stand Transfers, Sitting balance, Standing Balance Home Environment Patient Lives With: Other: See Comment (Lives alone, has caregivers during the day and family checks in at night.) Comments: Lives alone, has caregivers during the day and family checks in at night. Assistance Available: highway patrol officer Prior Functional Level: Required Assistance Assistance Required With: Cleaning;Laundry;Meals;Se lf Care;Shopping;Transportat ion Prior Functional Level Comments: Pt was unable to provide a history. Per pts chart, she lives alone in a condo but has caregivers during the day and family stops by at night. It is probable that she was getting assistance from caregivers and family for ADL's and IADL's. Pt was amb ind as she was found wandering the neighborhood alone. Patient Report: Patient is AOx1 and unable to provide a history. CURRENT FUNCTIONAL STATUS: Most recent performance Current Functional Mobility Assist Level Additional Information Rolling Supine to Sit Sit to Supine Scooting Verbal Cues Only Sit to Stand Minimal Assistance Stand to Sit Contact Guard Assistance Bed to Chair Toilet/Commode Gait Minimal Assistance Gait Device: Hand Held Assist Gait Distance (feet): 1 Side stepping, forward and backward stepping. Stairs Curb Step Car Transfer Blank santoyo indicate activity not attempted General Deviations/Observations: Daisy decreased;Flexed trunk posture;Shuffling Gait Balance: Static Sitting;Static Standing Static Sitting Balance: Good Patient able to maintain balance without handhold support, limited postural sway Static Standing Balance: Fair Patient able to maintain balance with handhold support, may require occasional minimal assistance JH-HLM: 5: Standing (1 or more minutes) Learning/Educational Needs: Discharge Plan;Family Education/Training;Functi onal Activities/Mobility;Plan of Care;Safety Goals for Plan of Care: Patient /Caregiver Goals: Go Home Goals: Patient will demonstrate understanding of importance of mobility during hospital stay and resolve all functional needs identified. Rehab Potential: Good Patient will be discontinued from Physical Therapy when no further skilled needs are identified in this setting. PLAN: PT Frequency: 3 times per week Plan of Care developed with: Patient TREATMENT INTERVENTIONS: Therapy Diagnosis: Reduced mobility-other;Decreased activities of daily living (ADL);Muscle Weakness (generalized);Unsteadines s on feet Interventions Provided: Evaluation $ Evaluation-Low (97423) Billed Units: 1 unit Training AND education provided in: Benefits of in-hospital mobility, Falls prevention, Role of Physical Therapy, Standing balance, Pre-gait activities The following therapeutic skills were used: Activity dosing, Cuing tactile, Cuing verbal, Cuing visual, Movement facilitation, Physical assist, Postural alignment correction Skilled Treatment Time (minutes): 10 Please see discipline specific clinical documentation flowsheet for complete details for this therapy evaluation/treatment. SIGNATURE: Bonnie Nuñez, PT PATIENT NAME: Chay Teague DATE: June 06, 2022 TIME: 8:40 AM [facility] [place] [facility] HNO ID: [id number] Author: Kadi Regan RT(R) Service: Radiology Author Type: Technologist Type: Allied Health Filed: 06/05/2022 8:12 PM Note Text: Radiology Service Progress Note PATIENT NAME: Chay Teague DATE OF SERVICE: June 05, 2022 TIME: 8:12 PM PATIENT IDENTITY VERIFICATION COMPLETED USING TWO (2) IDENTIFIERS: Name and Date of confirmed by identification band. FALL SCREENING: Has the patient had 2 falls in the last year or 1 fall with injury or currently using an Ambulatory Assistive Device (Walker, Cane, Wheelchair, Crutches, etc.)? Emergency Room Patient: Screened in ED PATIENT GENDER DATA: Female. status: : No status: NO. PATIENT RELEVANT IMPLANT DATA REVIEWED: Not Applicable RADIOLOGY DEPARTMENT: General X-ray: Exam(s) Completed: Chest X-Ray PERIPHERAL IV DATA: Not applicable SIGNED BY: RT Sabrina(R) June 05, 2022 8:12 PM [facility] HNO ID: [id number] Author: JESSIE Duke Service: Radiology Author Type: Technologist Type: Allied Health Filed: 06/05/2022 7:52 PM Note Text: Radiology Service Progress Note PATIENT NAME: Chay Teague DATE OF SERVICE: June 05, 2022 TIME: 7:52 PM PATIENT IDENTITY VERIFICATION COMPLETED USING TWO (2) IDENTIFIERS: Name and Date of confirmed by patient verbally and Name and Date of confirmed by identification band. FALL SCREENING: Has the patient had 2 falls in the last year or 1 fall with injury or currently using an Ambulatory Assistive Device (Walker, Cane, Wheelchair, Crutches, etc.)? Emergency Room Patient: Screened in ED PATIENT GENDER DATA: Female. status: : No status: NO. PATIENT RELEVANT IMPLANT DATA REVIEWED: Not Applicable RADIOLOGY DEPARTMENT: CT; Exam(s) Completed: Brain PERIPHERAL IV DATA: Not applicable SIGNED BY: JESSIE Duke June 05, 2022 7:52 PM [facility] Bacteria Ur Culton 2 Bacteria identified Cx Nom (U) [id number] Abnormal [facility] Comment on above: Order Comment: Speci men Type: URINE SPECIMENOrdering Facility: [facility] Address: [address] [place] [phone] Result Comment: <10, 000 CFU/ml Mixed microbiota No further workup. Mixed microbiota can be due to???urine???contamination with skin bacteria at time of collection or presence of a long-term urinary catheter. If a new culture is needed, please consider re-education of the patient on proper midstream collection technique or straight catheterization for???urine???collection. Performed By: #### 6 30-4 ####[facility] LABCLIA [id number] [facility] CENTERK [id number] [place] CBC W Auto Differential pane l (Bld)on 06-05-2022 Basophils (Bld) [#/Vol] 0.07 10*3/uL Normal <0.11 [facility] Comment on above: Order Comment: Speci men Type: BLOOD SPECIMENOrdering Facility: [facility] Address: [address] [place] [address] Performed By: #### 5 7021-8 ####[facility] LABORATORYCLIA [id number] [place] [address] [place] Basophils/100 WBC (Bld) 0.8 % Normal [facility] Comment on above: Order Comment: Speci men Type: BLOOD SPECIMENOrdering Facility: [facility] Address: [address] [place] [address] Performed By: #### 5 7021-8 ####[facility] LABORATORYCLIA [id number] [address] [place] Differential cell count method Nom (Bld) Auto Normal [facility] Comment on above: Order Comment: Speci men Type: BLOOD SPECIMENOrdering Facility: [facility] Address: [address] [place] [address] Performed By: #### 5 7021-8 ####[facility] LABORATORYCLIA [id number] [place] [address] [place] Eosinophils (Bld) [#/Vol] 0.34 10*3/uL Normal <0.46 [facility] Comment on above: Order Comment: Speci men Type: BLOOD SPECIMENOrdering Facility: [facility] Address: [address] [place] [address] Performed By: #### 5 7021-8 ####[facility] LABORATORYCLIA [id number] [place] [address] [facility] [place] Eosinophils/100 WBC (Bld) 4.0 % Normal [facility] Comment on above: Order Comment: Speci men Type: BLOOD SPECIMENOrdering Facility: [facility] Address: [address] [place] [address] Performed By: #### 5 7021-8 ####[facility] LABORATORYCLIA [id number] [place] [address] [place] Erythrocyte distribution width (RBC) [Ratio] 14.5 % Normal 11.5-15.0 [facility] Comment on above: Order Comment: Speci men Type: BLOOD SPECIMENOrdering Facility: [facility] Address: [address] [place] [address] Performed By: #### 5 7021-8 ####[facility] LABORATORYCLIA [id number] [address] [place] Hematocrit (Bld) [Volume fraction] 41.2 % Normal 36.0-46.0 [facility] Comment on above: Order Comment: Speci men Type: BLOOD SPECIMENOrdering Facility: [facility] Address: [address] [place] [address] Performed By: #### 5 7021-8 ####[facility] LABORATORYCLIA [id number] [address] [place] Hemoglobin (Bld) [Mass/Vol] 13.6 g/dL Normal 11.5-15.5 [facility] Comment on above: Order Comment: Speci men Type: BLOOD SPECIMENOrdering Facility: [facility] Address: [address] [place] [address] Performed By: #### 5 7021-8 ####[facility] LABORATORYCLIA [id number] [address] [place] IMMATURE GRAN % 0.5 % Normal [facility] Comment on above: Order Comment: Speci men Type: BLOOD SPECIMENOrdering Facility: [facility] Address: [address] [place] [address] Performed By: #### 5 7021-8 ####[facility] LABORATORYCLIA [id number] [address] [place] IMMATURE GRAN ABS 0.04 k/uL Normal <0.10 [facility] Comment on above: Order Comment: Speci men Type: BLOOD SPECIMENOrdering Facility: [facility] Address: [address] [place] [address] Performed By: #### 5 7021-8 ####[facility] LABORATORYCLIA [id number] [place] [address] [place] Lymphocytes (Bld) [#/Vol] 2.31 10*3/uL Normal 1.00-4.00 [facility] Comment on above: Order Comment: Speci men Type: BLOOD SPECIMENOrdering Facility: [facility] Address: [address] [place] [address] Performed By: #### 5 7021-8 ####[facility] LABORATORYCLIA [id number] [address] Lymphocytes/100 WBC (Bld) 27.0 % Normal [facility] Comment on above: Order Comment: Speci men Type: BLOOD SPECIMENOrdering Facility: [facility] Address: [address] [place] [address] Performed By: #### 5 7021-8 ####[facility] LABORATORYCLIA [id number] [address] [place] MCH (RBC) [Entitic mass] 30.7 pg Normal 26.0-34.0 [facility] Comment on above: Order Comment: Speci men Type: BLOOD SPECIMENOrdering Facility: [facility] Address: [address] [place] [address] Performed By: #### 5 7021-8 ####[facility] LABORATORYCLIA [id number] [address] [place] MCHC (RBC) [Mass/Vol] 33.0 g/dL Normal 30.5-36.0 [facility] Comment on above: Order Comment: Speci men Type: BLOOD SPECIMENOrdering Facility: [facility] Address: [address] [place] [address] Performed By: #### 5 7021-8 ####[facility] LABORATORYCLIA [id number] [place] [address] [place] MCV (RBC) [Entitic vol] 93.0 fL Normal 80.0-100.0 [facility] Comment on above: Order Comment: Speci men Type: BLOOD SPECIMENOrdering Facility: [facility] Address: [address] [place] [address] Performed By: #### 5 7021-8 ####[facility] LABORATORYCLIA [id number] [place] [address] [place] Monocytes (Bld) [#/Vol] 0.75 10*3/uL Normal <0.87 [facility] Comment on above: Order Comment: Speci men Type: BLOOD SPECIMENOrdering Facility: [facility] Address: [address] [place] [address] Performed By: #### 5 7021-8 ####[facility] LABORATORYCLIA [id number] [address] [place] Monocytes/100 WBC (Bld) 8.8 % Normal [facility] Comment on above: Order Comment: Speci men Type: BLOOD SPECIMENOrdering Facility: [facility] Address: [address] [place] [address] Performed By: #### 5 7021-8 ####[facility] LABORATORYCLIA [id number] [place] [address] [place] Neutrophils (Bld) [#/Vol] 5.04 10*3/uL Normal 1.45-7.50 [facility] Comment on above: Order Comment: Speci men Type: BLOOD SPECIMENOrdering Facility: [facility] Address: [address] [place] [address] Performed By: #### 5 7021-8 ####[facility] LABORATORYCLIA [id number] [address] [place] Neutrophils/100 WBC (Bld) 58.9 % Normal [facility] Comment on above: Order Comment: Speci men Type: BLOOD SPECIMENOrdering Facility: [facility] Address: [address] [place] [address] Performed By: #### 5 7021-8 ####[facility] LABORATORYCLIA [id number] [place] [address] [place] Nucleated RBC (Bld) [#/Vol] 10*3/uL Normal <0.01 [facility] Comment on above: Order Comment: Speci men Type: BLOOD SPECIMENOrdering Facility: [facility] Address: [address] [place] [address] Performed By: #### 5 7021-8 ####[facility] LABORATORYCLIA [id number] [place] [address] [place] Nucleated RBC/100 WBC (Bld) [Ratio] 0.0 /100 WBC Normal [facility] Comment on above: Order Comment: Speci men Type: BLOOD SPECIMENOrdering Facility: [facility] Address: [address] [place] [address] Performed By: #### 5 7021-8 ####[facility] LABORATORYCLIA [id number] [place] [address] [place] Platelet mean volume (Bld) [Entitic vol] 10.1 fL Normal 9.0-12.7 [facility] Comment on above: Order Comment: Speci men Type: BLOOD SPECIMENOrdering Facility: [facility] Address: [address] [place] [address] Performed By: #### 5 7021-8 ####[facility] LABORATORYCLIA [id number] [place] [address] [place] Platelets (Bld) [#/Vol] 283 10*3/uL Normal 150-400 [facility] Comment on above: Order Comment: Speci men Type: BLOOD SPECIMENOrdering Facility: [facility] Address: [address] [place] [address] Performed By: #### 5 7021-8 ####[facility] LABORATORYCLIA [id number] [place] [address] [place] RBC (Bld) [#/Vol] 4.43 10*6/uL Normal 3.90-5.20 [facility] Comment on above: Order Comment: Speci men Type: BLOOD SPECIMENOrdering Facility: [facility] Address: [address] [place] [address] Performed By: #### 5 7021-8 ####[facility] LABORATORYCLIA [id number] [place] [address] [place] WBC (Bld) [#/Vol] 8.55 10*3/uL Normal 3.70-11.00 [facility] Comment on above: Order Comment: Speci men Type: BLOOD SPECIMENOrdering Facility: [facility] Address: [address] [place] [address] Performed By: #### 5 7021-8 ####[facility] LABORATORYCLIA [id number] [place] [address] [place] BRAIN WO IVCONon 06-05-[address] BRAIN WO IVCON * * *Final Report* * * DATE OF EXAM: Jun 05 2022 8:06PM [facility] [place] BRAIN WO IVCON / PROCEDURE REASON: Mental status change, unknown cause * * * * Physician Interpretation * * * * EXAMINATION: CT BRAIN WO IVCON CLINICAL HISTORY: Mental status change, unknown cause TECHNIQUE: Serial axial images without IV contrast were obtained from the vertex to the foramen magnum. MQ: CTBWO_3 CT Radiation dose: Integrated Dose-Length Product (DLP) for this visit = 637 mGy*cm CT Dose Reduction Employed: No dose reduction techniques were required COMPARISON: None. RESULT: Post-operative change: None. Acute change: No evidence of an acute infarct or other acute parenchymal process. Hemorrhage: No evidence of acute intracranial hemorrhage. ECASS hemorrhagic transformation score: Not Applicable Mass Lesion / Mass Effect: There is no evidence of an intracranial mass or extraaxial fluid collection. No significant mass effect. Chronic change: Scattered patchy foci of low attenuation are present within supratentorial white matter which is a nonspecific finding but likely represents mild microvascular ischemia. Parenchyma: There is moderate generalized volume loss. The brain parenchyma is otherwise within normal limits for age. Ventricles: The ventricles are within normal limits of size and configuration for age. Paranasal sinuses and skull base: The visualized paranasal sinuses are grossly clear. The skull base and imaged soft tissues are unremarkable. Production Sound Mixer (topogram) images: Unremarkable. IMPRESSION: NO EVIDENCE OF AN ACUTE INTRACRANIAL PROCESS Endoscopy Specialty Technician: INES Transcribe Date/Time: Jun 05 2022 8:12P Dictated by : ALICE MARINA MD This examination was interpreted and the report reviewed and electronically signed by: ALICE MARINA MD on Jun 05 2022 8:13PM EST [id number] Normal [facility] Comprehensive metabolic 2000 panelon 06-05-2022 Albumin [Mass/Vol] 4.0 g/dL Normal 3.9-4.9 [facility] Comment on above: Order Comment: Speci men Type: BLOOD SPECIMENOrdering Facility: [facility] Address: [address] [place] [address] Performed By: #### 2 4323-8, 3016-3 ####LEUNG LABORATORYCLIA [id number] [address] STATES [facility] ALP [Catalytic activity/Vol] 92 U/L Normal 34-123 [facility] Comment on above: Order Comment: Speci men Type: BLOOD SPECIMENOrdering Facility: [facility] Address: [address] [place] [address] Performed By: #### 2 4323-8, 3016-3 ####LEUNG LABORATORYCLIA [id number] [address] [place] [facility] ALT [Catalytic activity/Vol] 14 U/L Normal 7-38 [facility] Comment on above: Order Comment: Speci men Type: BLOOD SPECIMENOrdering Facility: [facility] Address: [address] [place] [address] Performed By: #### 2 4323-8, 3016-3 ####LEUNG LABORATORYCLIA [id number] [place] [id number] [place] [facility] Anion gap [Moles/Vol] 9 mmol/L Normal 9-18 [facility] Comment on above: Order Comment: Speci men Type: BLOOD SPECIMENOrdering Facility: [facility] Address: [address] [place] [address] Performed By: #### 2 4323-8, 3016-3 ####LEUNG LABORATORYCLIA [id number] [place] [address] [place] AST [Catalytic activity/Vol] 22 U/L Normal 13-35 [facility] Comment on above: Order Comment: Speci men Type: BLOOD SPECIMENOrdering Facility: [facility] Address: [address] [place] [address] Performed By: #### 2 4323-8, 3016-3 ####LEUNG LABORATORYCLIA [id number] [place] [address] [place] Bilirubin [Mass/Vol] 0.5 mg/dL Normal 0.2-1.3 [facility] Comment on above: Order Comment: Speci men Type: BLOOD SPECIMENOrdering Facility: [facility] Address: [address] [place] [address] Performed By: #### 2 4323-8, 3015-3 ####LEUNG LABORATORYCLIA [id number] [place] [address] [place] Calcium [Mass/Vol] 9.5 mg/dL Normal 8.5-10.2 [facility] Comment on above: Order Comment: Speci men Type: BLOOD SPECIMENOrdering Facility: [facility] Address: [address] [place] [address] Performed By: #### 2 4323-8, 3016-3 ####LEUNG LABORATORYCLIA [id number] [place] [address] [place] Chloride [Moles/Vol] 107 mmol/L High 97-105 [facility] Comment on above: Order Comment: Speci men Type: BLOOD SPECIMENOrdering Facility: [facility] Address: [address] [place] [address] Performed By: #### 2 4323-8, 6-3 ####LEUNG LABORATORYCLIA [id number] [place] [address] [place] CO2 [Moles/Vol] 27 mmol/L Normal 22-30 [facility] Comment on above: Order Comment: Speci men Type: BLOOD SPECIMENOrdering Facility: [facility] Address: [address] [place] [address] Performed By: #### 2 4323-8, 3016-3 ####LEUNG LABORATORYCLIA [id number] [address] STATES OF [facility] Creatinine [Mass/Vol] 0.84 mg/dL Normal 0.58-0.96 [facility] Comment on above: Order Comment: Bisi naranjo Type: BLOOD SPECIMENOrdering Facility: [facility] Address: [address] [id number] Performed By: #### 2 4323-8, 3016-3 ####LEUNG LABORATORYCLIA [id number] [address] ESTIMATED GLOMERULAR FILTRATION RATE 71 mL/min/1.73m??? Normal >=60 [facility] Comment on above: Order Comment: Bisi naranjo Type: BLOOD SPECIMENOrdering Facility: [facility] Address: [address] [place], [place] [address] Result Comment: Farheen mated Glomerular Filtration Rate (eGFR) is calculated using the 2020 CKD-EPI creatinine equation. This equation utilizes serum creatinine, sex, and age as parameters. The creatinine assay has traceable calibration to isotope dilution-mass spectrometry. Refer to KDIGO guidelines for clinical interpretation. In patients with unstable renal function, e.g. those with acute kidney injury, the eGFR may not accurately reflect actual GFR. Performed By: #### 2 4323-8, 3016-3 ####LEUNG LABORATORYCLIA [id number] [address] STATES OF [facility] Glucose [Mass/Vol] 91 mg/dL Normal 74-99 [facility] Comment on above: Order Comment: Bisi naranjo Type: BLOOD SPECIMENOrdering Facility: [facility] Address: [address] [place], [place] [id number] Result Comment: The [place] Diabetes Association (ADA) provides guidance for cutoff values for fasting glucose and random glucose. The ADA defines fasting as no caloric intake for at least 8 hours. Fasting plasma glucose results between 100 to 125 mg/dL indicate increased risk for diabetes (prediabetes). Fasting plasma glucose results greater than or equal to 126 mg/dL meet the criteria for diagnosis of diabetes. In the absence of unequivocal hyperglycemia, results should be confirmed by repeat testing. In a patient with classic symptoms of hyperglycemia or hyperglycemic crisis, random plasma glucose results greater than or equal to 200 mg/dL meet the criteria for diagnosis of diabetes. Reference: Standards of Medical Care in Diabetes 2016, [place] [employer] Association. Diabetes Care. 2016.39(Suppl 1). Performed By: #### 2 4323-8, 3016-3 ####LEUNG LABORATORYCLIA [id number] [address] STATES [facility] Potassium [Moles/Vol] 3.8 mmol/L Normal 3.7-5.1 [facility] Comment on above: Order Comment: Speci men Type: BLOOD SPECIMENOrdering Facility: [facility] Address: [address] [place] [address] Performed By: #### 2 4323-8, 6-3 ####LEUNG LABORATORYCLIA [id number] [address] Protein [Mass/Vol] 6.9 g/dL Normal 6.3-8.0 [facility] Comment on above: Order Comment: Shai marcella Type: BLOOD SPECIMENOrdering Facility: [facility] Address: [address] [place] [address] Performed By: #### 2 4323-8, 6-3 ####LEUNG LABORATORYCLIA [id number] [address] Sodium [Moles/Vol] 143 mmol/L Normal 136-144 [facility] Comment on above: Order Comment: Shai marcella Type: BLOOD SPECIMENOrdering Facility: [facility] Address: [address] [address] Performed By: #### 2 4323-8, 6-3 ####LEUNG LABORATORYCLIA [id number] [address] STATES [facility] Urea nitrogen [Mass/Vol] 28 mg/dL High 7-21 [facility] Comment on above: Order Comment: Shai men Type: BLOOD SPECIMENOrdering Facility: [facility] Address: [address] [address] Performed By: #### 2 4323-8, 6-3 ####LEUNG LABORATORYCLIA [id number] [address] ECG COMPLETEon 06-05-2022 ECG COMPLETE Ventricular Rate : 9 5 BPM Atrial Rate : 95 BPM P-R Interval : 172 ms QRS Duration : 114 ms Q-T Interval : 388 ms QTC Calculation(Bazett) : 487 ms Calculated P [place] : 42 degrees Calculated R [place] : -32 degrees Calculated T [place] : 32 degrees NORMAL SINUS RHYTHM WITH SINUS ARRHYTHMIA LEFT AXIS DEVIATION INCOMPLETE RIGHT BUNDLE BRANCH BLOCK MINIMAL VOLTAGE CRITERIA FOR LVH, MAY BE NORMAL VARIANT INFERIOR INFARCT , AGE UNDETERMINED T WAVE ABNORMALITY, CONSIDER ANTERIOR ISCHEMIA ABNORMAL ECG no STEMI 2036 Confirmed by MD TAYLOR BENJAMIN ([id number]), science editor CARON DIAZ ([id number]) on 06/06/2022 6:59:18 AM NAME : CHAY TEAGUE PID : [id number] : 1945 Gender : Female Race : Unknown ORD : [id number] Procedure Date : Jun 05 2022 20:37:48 Edit Date : Jun 06 2022 06:59:23 Diagnosis: NORMAL SINUS RHYTHM WITH SINUS ARRHYTHMIA LEFT AXIS DEVIATION INCOMPLETE RIGHT BUNDLE BRANCH BLOCK MINIMAL VOLTAGE CRITERIA FOR LVH, MAY BE NORMAL VARIANT INFERIOR INFARCT , AGE UNDETERMINED T WAVE ABNORMALITY, CONSIDER ANTERIOR ISCHEMIA ABNORMAL ECG no STEMI 2036 Confirmed by MD TAYLOR BENJAMIN ([id number]), science editor CARON DIAZ ([id number]) on 06/06/2022 6:59:18 AM Test Reason : Arrhythmia Location : 1 : ER ED Overread By : MD TAYLOR BENJAMIN Edited By : CARON DIAZ Referred By : , Acquired by : [place], [facility] ED NOTEon 06-05-2022 ED NOTE HNO ID: [id number] Author: Jame Leavitt RN Service: Nursing Author Type: Registered Nurse Type: ED Notes Filed: 06/05/2022 7:35 PM Note Text: Pt presents to ER from home for CC increasing confusion. Pt has dementia at baseline but per daughter she has become more confused today. Pt was found wandering the neighborhood this afternoon and local PD contacted family to pick her up. Daughter concerned for UTI. Pt alert to self in triage. Denies SOB and CP. [facility] ED PROV NOTEon 06-05-2022 ED PROV NOTE HNO ID: [id number] Author: Riccardo Taylor DO Service: Emergency Medicine Author Type: Physician Type: ED Provider Notes Filed: 06/05/2022 11:49 PM Note Text: ED Provider Note Patient Name: Chay Teague : 1945 SERVICE DATE: 06/05/22 History Patient presents with: Dementia 77-year-old female with history of dementia, hypertension, hypothyroidism presents for evaluation of increasing confusion. Patient lives in her own condominium with caregivers during the day. Family checks on her at night. Over the past few days patient has had increased confusion. Today, daughter received a call from police the patient had wandered from the house and was walking through the neighborhood. On arrival, patient is alert to self only. She has no pain. No physical complaints. No reports of fall or traumatic injuries. History provided by: Patient, medical records and relative History limited by: Dementia PAST MEDICAL HISTORY Diagnosis Date Psychiatric disorder History reviewed. No pertinent surgical history. No family history on file. Social History Tobacco Use Smoking status: Unknown Smokeless tobacco: Not on file Substance and Sexual Activity Alcohol use: Not on file Drug use: Not on file Sexual activity: Not on file ALLERGIES No Known Allergies Review of Systems Unable to perform ROS: Dementia Psychiatric/Behavioral: Positive for confusion. Physical Exam Vitals [06/05/22 1930] BP Pulse Temp Temp src Resp SpO2 Weight Height 199/92 (!) 114 36.6 ?C (97.9 ?F) Oral 22 96 % 82.1 kg (181 lb) -- Physical Exam Vitals and nursing note reviewed. Constitutional: General: She is not in acute distress. Appearance: She is well-developed. HENT: Head: Normocephalic and atraumatic. Right Ear: External ear normal. Left Ear: External ear normal. Eyes: General: No scleral icterus. Right eye: No discharge. Left eye: No discharge. Conjunctiva/sclera: Conjunctivae normal. Pupils: Pupils are equal, round, and reactive to light. Neck: Trachea: No tracheal deviation. Cardiovascular: Rate and Rhythm: Regular rhythm. Tachycardia present. Heart sounds: Normal heart sounds. No murmur heard. Pulmonary: Effort: Pulmonary effort is normal. No respiratory distress. Breath sounds: Normal breath sounds. Abdominal: General: Bowel sounds are normal. There is no distension. Palpations: Abdomen is soft. There is no mass. Tenderness: There is no abdominal tenderness. There is no guarding or rebound. Musculoskeletal: General: No tenderness. Normal range of motion. Cervical back: Normal range of motion and neck supple. Skin: General: Skin is warm and dry. Findings: No rash. Neurological: Mental Status: She is alert. She is disoriented and confused. GCS: GCS eye subscore is 4. GCS verbal subscore is 5. GCS motor subscore is 6. Cranial Nerves: No cranial nerve deficit. Sensory: No sensory deficit. Coordination: Coordination normal. Comments: Oriented to self only. Moves all extremities with purpose. Normal clear speech. No focal neurological deficits. Psychiatric: Mood and Affect: Mood is anxious. Behavior: Behavior is hyperactive. Behavior is not aggressive. Diagnostic Testing ED Labs Ordered and Reviewed - No data to display Procedures ED Course / Clinical Impression ED Course as of 06/05/222347 Riccardo Taylor's Documentation FriJun 05, 20222047 ECG Complete W Interpretation ED EKG INTERPRETATION: Normal sinus rhythm at 95 beats per minute Left axis deviation Incomplete right bundle branch block. LVH Nonspecific ST-T changes. No acute injury pattern. Interpretation by ED physician Clinical Impressions as of 06/05/222347 Confusion Dementia with behavioral disturbance, unspecified dementia type (HCC) Acute cystitis without hematuria COVID-19 test performed per [facility] policy for suspected COVID community exposure. MDM / Disposition / Plan 77-year-old female with dementia presents with confusion, behavioral disturbance. Laboratory studies and urinalysis. CT head. Seroquel 25 mg p.o. Resting comfortably after Seroquel. Urinalysis shows UTI. Urine culture sent. Given single dose of Rocephin. Can be transitioned to oral Keflex. Laboratory studies otherwise unremarkable. Chest x-ray and CT head unremarkable. Patient would benefit from geriatric psychiatry evaluation. I have reviewed the results of all laboratory tests, ecgs, and any imaging studies and have determined that the patient does not need further medical treatment prior to psychiatric care. They are medically cleared at this time. 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 23:48 - Now intermittently agitated trying to get out of bed. QTc normal. Haldol 2 mg IV ordered. ED ATTENDING SIGN OUT NOTE Code Status: Full Code Presentation / Findings / Interventions / Plan / Items (more content not included)... Normal [facility] Ethanol SerPl-mCncon 09-14-2 022 Ethanol [Mass/Vol] mg/dL Normal <11 [facility] Comment on above: Order Comment: Speci men Type: BLOOD SPECIMENOrdering Facility: [facility] Address: [address] [place] [address] Performed By: #### 5 643-2 ####LEUNG LABORATORYCLIA [id number] [place] [address] [facility] [place] SARS-CoV-2 RNA Resp Ql TATI+p robeon 06-05-2022 SARS-CoV-2 (COVID-19) RNA TATI+probe Ql (Resp) SARS-CoV-2 (Agent of COVID-19) Not Detected by RT-PCR or equivalent method. Normal Not Detected [facility] Comment on above: Order Comment: Speci men Type: SWAB OF INTERNAL NOSEOrdering Facility: [facility] Address: [address] [place] [address] Result Comment: This test has been authorized by FDA under an Emergency Use Authorization (EUA). Performed By: #### 9 4500-6 ####LEUNG LABORATORYCLIA [id number] [place] [address] [place] TOX SCREEN ROUT URon 022 Amphetamines Confirm (U) [Mass/Vol] Negative Normal Negative [facility] Comment on above: Order Comment: Speci men Type: URINE SPECIMENOrdering Facility: [facility] Address: [address] [place] [address] Result Comment: Cuto ff threshold at 1000 ng/mL. Performed By: #### U TOX2 ####LEUNG LABORATORYCLIA [id number] [place] [address] [place] BARBITURATES, URINE Negative Normal Negative [facility] Comment on above: Order Comment: Speci men Type: URINE SPECIMENOrdering Facility: [facility] Address: [address] [place] [address] Result Comment: Cuto ff threshold at 200 ng/mL. Performed By: #### U TOX2 ####LEUNG LABORATORYCLIA [id number] [place] [address] [place] BENZODIAZEPINES, UR Negative Normal Negative [facility] Comment on above: Order Comment: Speci men Type: URINE SPECIMENOrdering Facility: [facility] Address: [address] [place] [address] Result Comment: Cuto ff threshold at 200 ng/mL. Performed By: #### U TOX2 ####LEUNG LABORATORYCLIA [id number] [place] [address] [place] CANNABINOIDS,URINE Negative Normal Negative [facility] Comment on above: Order Comment: Speci men Type: URINE SPECIMENOrdering Facility: [facility] Address: [address] [place] [address] Result Comment: Cuto ff threshold at 50 ng/mL. Performed By: #### U TOX2 ####LEUNG LABORATORYCLIA [id number] [place] [address] [place] Cocaine Ql (U) Negative Normal Negative [facility] Comment on above: Order Comment: Speci men Type: URINE SPECIMENOrdering Facility: [facility] Address: [address] [place] [address] Result Comment: Cuto ff threshold at 300 ng/mL. Performed By: #### U TOX2 ####LEUNG LABORATORYCLIA [id number] [place] [address] [place] Ethanol (U) [Mass/Vol] <11 Normal <11 [facility] Comment on above: Order Comment: Speci men Type: URINE SPECIMENOrdering Facility: [facility] Address: [address] [place] [address] Performed By: #### U TOX2 ####LEUNG LABORATORYCLIA [id number] [place] [address] [place] Opiates Screen Ql (U) Negative Normal Negative [facility] Comment on above: Order Comment: Speci men Type: URINE SPECIMENOrdering Facility: [facility] Address: [address] [place] [address] Result Comment: Cuto ff threshold at 300 ng/mL. Performed By: #### U TOX2 ####LEUNG LABORATORYCLIA [id number] [facility] [place] [address] oxyCODONE cutoff Screen (U) [Mass/Vol] Negative Normal Negative [facility] Comment on above: Order Comment: Speci men Type: URINE SPECIMENOrdering Facility: [facility] Address: [address] [place] [address] Result Comment: Cuto ff threshold at 100 ng/mL. Performed By: #### U TOX2 ####LEUNG LABORATORYCLIA [id number] [address] Phencyclidine Ql (U) Negative Normal Negative [facility] Comment on above: Order Comment: Speci men Type: URINE SPECIMENOrdering Facility: [facility] Address: [address] [place] [address] Result Comment: Cuto ff threshold at 25 ng/mL. Performed By: #### U TOX2 ####LEUNG LABORATORYCLIA [id number] [address] [place] TSH SerPl-aCncon 06-05-2022 TSH Qn 4.220 m[IU]/L High 0.270-4.200 [facility] Comment on above: Order Comment: Speci men Type: BLOOD SPECIMENOrdering Facility: [facility] Address: [address] [place] [address] Performed By: #### 2 4323-8, 3016-3 ####LEUNG LABORATORYCLIA [id number] [address] [place] URINALYSIS, REFLEX MICROSCOP ICon 06-05-2022 Bacteria LM.HPF (Urine sed) [#/Area] Moderate Abnormal None Seen [facility] Comment on above: Order Comment: Speci men Type: URINE SPECIMENOrdering Facility: [facility] Address: [address] [place] [address] Performed By: #### L [id number] ####LEUNG LABORATORYCLIA [id number] [address] [place] Bilirubin Ql (U) Negative Normal Negative [facility] Comment on above: Order Comment: Speci men Type: URINE SPECIMENOrdering Facility: [facility] Address: [address] [place] [address] Performed By: #### L [id number] ####LEUNG LABORATORYCLIA [id number] [address] [place] Clarity (Unsp spec) Slightly Cloudy Abnormal Clear [facility] Comment on above: Order Comment: Speci men Type: URINE SPECIMENOrdering Facility: [facility] Address: [address] [place] [address] Performed By: #### L [id number] ####LEUNG LABORATORYCLIA [id number] [address] [place] Color (U) Yellow Normal Yellow [facility] Comment on above: Order Comment: Speci men Type: URINE SPECIMENOrdering Facility: [facility] Address: [address] [place] [address] Performed By: #### L [id number] ####LEUNG LABORATORYCLIA [id number] [address] [place] Epithelial cells LM.HPF (Urine sed) [#/Area] Few Normal [facility] Comment on above: Order Comment: Speci men Type: URINE SPECIMENOrdering Facility: [facility] Address: [address] [place] [address] Result Comment: Few Performed By: #### L [id number] ####LEUNG LABORATORYCLIA [id number] [address] [place] Glucose Test strip (U) [Mass/Vol] Negative Normal Negative [facility] Comment on above: Order Comment: Speci men Type: URINE SPECIMENOrdering Facility: [facility] Address: [address] [place] [address] Performed By: #### L [id number] ####LEUNG LABORATORYCLIA [id number] [address] Hemoglobin Ql (U) Trace Abnormal Negative [facility] Comment on above: Order Comment: Speci men Type: URINE SPECIMENOrdering Facility: [facility] Address: [address] [place] [address] Performed By: #### L [id number] ####LEUNG LABORATORYCLIA [id number] [address] Ketones Ql (U) Negative Normal Negative [facility] Comment on above: Order Comment: Speci men Type: URINE SPECIMENOrdering Facility: [facility] Address: [address] [place] [address] Performed By: #### L [id number] ####LEUNG LABORATORYCLIA [id number] [address] [place] Leukocyte esterase Test strip Ql (U) 2+ Abnormal Negative [facility] Comment on above: Order Comment: Speci men Type: URINE SPECIMENOrdering Facility: [facility] Address: [address] [place] [address] Performed By: #### L [id number] ####LEUNG LABORATORYCLIA [id number] [address] Nitrite Ql (U) Negative Normal Negative [facility] Comment on above: Order Comment: Speci men Type: URINE SPECIMENOrdering Facility: [facility] Address: [address] [place] [address] Performed By: #### L [id number] ####LEUNG LABORATORYCLIA [id number] [address] [place] pH (U) 6.0 [pH] Normal 5.0-8.0 [facility] Comment on above: Order Comment: Speci men Type: URINE SPECIMENOrdering Facility: [facility] Address: [address] [place] [address] Performed By: #### L [id number] ####LEUNG LABORATORYCLIA [id number] [place] [address] [facility] [place] Protein (U) [Mass/Vol] Negative Normal Negative [facility] Comment on above: Order Comment: Speci men Type: URINE SPECIMENOrdering Facility: [facility] Address: [address] [place] [address] Performed By: #### L [id number] ####LEUNG LABORATORYCLIA [id number] [place] [address] [place] RBC LM.HPF (Urine sed) [#/Area] 0-3 /HPF Normal 0-3 /HPF [facility] Comment on above: Order Comment: Speci men Type: URINE SPECIMENOrdering Facility: [facility] Address: [address] [place] [address] Performed By: #### L [id number] ####LEUNG LABORATORYCLIA [id number] [address] Specific gravity (U) [Rel density] 1.025 Normal 1.005-1.030 [facility] Comment on above: Order Comment: Speci men Type: URINE SPECIMENOrdering Facility: [facility] [facility] Address: [address] [place] [address] Performed By: #### L [id number] ####LEUNG LABORATORYCLIA [id number] [address] Urobilinogen Ql (U) 0.2 EU/dL Normal 0.2-1.0 EU/dL [facility] Comment on above: Order Comment: Speci men Type: URINE SPECIMENOrdering Facility: [facility] Address: [address] [place] [address] Performed By: #### L [id number] ####ALMA LABORATORYCLIA [id number] [address] WBC LM.HPF (Urine sed) [#/Area] 11-25 /HPF Abnormal 0-5 /HPF [facility] Comment on above: Order Comment: Speci men Type: URINE SPECIMENOrdering Facility: [facility] Address: [address] [place] [address] Performed By: #### L [id number] ####LEUNG LABORATORYCLIA [id number] [address] [place] XR CHEST 1V FRONTAL PORTon 0 06-05-2022 XR CHEST 1V FRONTAL PORT * * *Final Report* * * DATE OF EXAM: Jun 05 2022 8:13PM MDX [id number] - XR CHEST 1V FRONTAL PORT / PROCEDURE REASON: Fatigue and malaise * * * * Physician Interpretation * * * * EXAMINATION: CHEST RADIOGRAPH (PORTABLE SINGLE VIEW AP) Exam Date/Time: 06/05/2022 8:13 PM CLINICAL HISTORY: Fatigue and malaise MQ: XCPR_5 Comparison: None RESULT: Lines, tubes, and devices: None. Lungs and pleura: No edema, infiltrates, pulmonary nodules or pleural effusions. No pneumothorax. Cardiomediastinal silhouette: Within normal limits Other: . IMPRESSION: No active disease Endoscopy Specialty Technician: INES Transcribe Date/Time: Jun 05 2022 8:14P Dictated by : ALICE MARNIA MD This examination was interpreted and the report reviewed and electronically signed by: ALICE MARINA MD on Jun 05 2022 8:14PM EST [id number] Normal [facility] Anti-Nuclear Antibodyon 10-24 CRESENCIO Titer < 1 : 80 Normal <1:80 [facility] Comment on above: Result Comment: Test ed by Indirect Immunofluorescence Assay (IFA). Performed By: #### A PTT, TSH5, HEMDF, LDH3, DDI2, BMP3M, ESR, FOLT3, URIC3, FEIBC, FERR3, B12, FT4M #### [facility] [employer] [facility] [address] [place] [address] #### HVAAO, ANA3, HEPAN, B2GPG, B2GPM, B2GPA #### [place] [address] #### LUPUS #### The performing lab is in the report. Lupus Anticoagulant Reflexiv e Panelon 11-12-2021 aPTT Coag (Bld) [Time] 118 s High 32-48 [facility] Comment on above: Performed By: #### A PTT, TSH5, HEMDF, LDH3, DDI2, BMP3M, ESR, FOLT3, URIC3, FEIBC, FERR3, B12, FT4M #### [facility] [address] [place] [address] #### HVAAO, ANA3, HEPAN, B2GPG, B2GPM, B2GPA #### [address] [address] #### LUPUS #### The performing lab is in the report. aPTT Coag (Bld) [Time] 42 s Normal 32-48 [facility] Comment on above: Performed By: #### A PTT, TSH5, HEMDF, LDH3, DDI2, BMP3M, ESR, FOLT3, URIC3, FEIBC, FERR3, B12, FT4M #### [facility] [address] [place] [address] #### HVAAO, ANA3, HEPAN, B2GPG, B2GPM, B2GPA #### [place] [address] [place], [place] #### LUPUS #### The performing lab is in the report. dRVVT 1:1 Mix Not Applicable Normal [facility] Comment on above: Performed By: #### A PTT, TSH5, HEMDF, LDH3, DDI2, BMP3M, ESR, FOLT3, URIC3, FEIBC, FERR3, B12, FT4M #### [facility] [address] [place] [address] #### HVAAO, ANA3, HEPAN, B2GPG, B2GPM, B2GPA #### [address] #### LUPUS #### The performing lab is in the report. dRVVT Confirmation Not Applicable Normal Negative [facility] Comment on above: Performed By: #### A PTT, TSH5, HEMDF, LDH3, DDI2, BMP3M, ESR, FOLT3, URIC3, FEIBC, FERR3, B12, FT4M #### [facility] [address] [place] [address] #### HVAAO, ANA3, HEPAN, B2GPG, B2GPM, B2GPA #### [address] #### LUPUS #### The performing lab is in the report. dRVVT Screen 29 sec Low [facility] Comment on above: Performed By: #### A PTT, TSH5, HEMDF, LDH3, DDI2, BMP3M, ESR, FOLT3, URIC3, FEIBC, FERR3, B12, FT4M #### [facility] [address] [place] [address] #### HVAAO, ANA3, HEPAN, B2GPG, B2GPM, B2GPA #### [facility] [address] [place] [address] #### LUPUS #### The performing lab is in the report. Hexagonal Phospholipid Neutral Reflex Not Applicable Normal Negative [facility] Comment on above: Performed By: #### A PTT, TSH5, HEMDF, LDH3, DDI2, BMP3M, ESR, FOLT3, URIC3, FEIBC, FERR3, B12, FT4M #### [facility] [address] [place] [address] #### HVAAO, ANA3, HEPAN, B2GPG, B2GPM, B2GPA #### [facility] [address] [place] [address] #### LUPUS #### The performing lab is in the report. Lupus Anticoagulant Interpretation See Note Normal [facility] Comment on above: Result Comment: Lupu s anticoagulant not detected. Elevated thrombin time with normal reptilase time indicates the presence of heparin (therapy with unfractionated or low molecular weight heparin or contamination from a line). The phospholipid-dependent screening tests (PTT after heparin neutralization and DRVVT) are not prolonged. Lupus anticoagulant antibodies are heterogeneous and antibody titers fluctuate over time. Laboratory tests used to identify lupus anticoagulants demonstrate variable sensitivity. If there is strong clinical suspicion for antiphospholipid antibody syndrome (APS), consider testing for cardiolipin and beta-2 glycoprotein 1 antibodies (IgG and IgM) if this testing has not already been performed. INTERPRETIVE INFORMATION: Lupus Anticoagulant Interpretation This test was developed and its performance characteristics determined by [facility]. It has not been cleared or approved by the [place] Food and Drug Administration. This test was performed in a CLIA certified laboratory and is intended for clinical purposes. Counseling and informed consent are recommended for genetic testing. Consent forms are available online. Performed by [facility], [address] [place] [id number] [email or web address], Sara Ji MD - Lab. Director Performed By: #### A PTT, TSH5, HEMDF, LDH3, DDI2, BMP3M, ESR, FOLT3, URIC3, FEIBC, FERR3, B12, FT4M #### [facility] [address] [place] [address] #### HVAAO, ANA3, HEPAN, B2GPG, B2GPM, B2GPA #### [address] #### LUPUS #### The performing lab is in the report. Platelet Neutralization (PTT-D, Confirm) Not Applicable Normal Negative [facility] Comment on above: Performed By: #### A PTT, TSH5, HEMDF, LDH3, DDI2, BMP3M, ESR, FOLT3, URIC3, FEIBC, FERR3, B12, FT4M #### [facility] [address] [place] #### HVAAO, ANA3, HEPAN, B2GPG, B2GPM, B2GPA #### [address] #### LUPUS #### The performing lab is in the report. PT Coag (PPP) [Time] 13.4 s Normal 12.0-15.5 [facility] Comment on above: Performed By: #### A PTT, TSH5, HEMDF, LDH3, DDI2, BMP3M, ESR, FOLT3, URIC3, FEIBC, FERR3, B12, FT4M #### [facility] [address] [place] #### HVAAO, ANA3, HEPAN, B2GPG, B2GPM, B2GPA #### [address] #### LUPUS #### The performing lab is in the report. PTT-D 1:1 Mix Not Applicable Normal 32-48 [facility] Comment on above: Performed By: #### A PTT, TSH5, HEMDF, LDH3, DDI2, BMP3M, ESR, FOLT3, URIC3, FEIBC, FERR3, B12, FT4M #### [facility] [address] [place] #### HVAAO, ANA3, HEPAN, B2GPG, B2GPM, B2GPA #### [address] #### LUPUS #### The performing lab is in the report. Reptilase Time 16.5 sec Normal <=21.9 [facility] Comment on above: Performed By: #### A PTT, TSH5, HEMDF, LDH3, DDI2, BMP3M, ESR, FOLT3, URIC3, FEIBC, FERR3, B12, FT4M #### [facility] [address] [place] [address] #### HVAAO, ANA3, HEPAN, B2GPG, B2GPM, B2GPA #### [address] #### LUPUS #### The performing lab is in the report. Thrombin Time > 150.0 High 14.7-19.5 [facility] Comment on above: Performed By: #### A PTT, TSH5, HEMDF, LDH3, DDI2, BMP3M, ESR, FOLT3, URIC3, FEIBC, FERR3, B12, FT4M #### [facility] [address] [place] [address] #### HVAAO, ANA3, HEPAN, B2GPG, B2GPM, B2GPA #### [address] #### LUPUS #### The performing lab is in the report. Basic Metabolic Panelon 10-23 Anion gap [Moles/Vol] 4 mmol/L Normal 3-13 [facility] Comment on above: Performed By: #### A PTT, TSH5, HEMDF, LDH3, DDI2, BMP3M, ESR, FOLT3, URIC3, FEIBC, FERR3, B12, FT4M #### [place] [address] [place] [address] #### HVAAO, ANA3, HEPAN, B2GPG, B2GPM, B2GPA #### [address] #### LUPUS #### The performing lab is in the report. Calcium [Mass/Vol] 9.0 mg/dL Normal 8.4-10.4 [facility] Comment on above: Performed By: #### A PTT, TSH5, HEMDF, LDH3, DDI2, BMP3M, ESR, FOLT3, URIC3, FEIBC, FERR3, B12, FT4M #### [address] [place] [address] #### HVAAO, ANA3, HEPAN, B2GPG, B2GPM, B2GPA #### [address] #### LUPUS #### The performing lab is in the report. CO2 [Moles/Vol] 30 mmol/L Normal 22-30 [facility] Comment on above: Performed By: #### A PTT, TSH5, HEMDF, LDH3, DDI2, BMP3M, ESR, FOLT3, URIC3, FEIBC, FERR3, B12, FT4M #### [address] [facility] [place] #### HVAAO, ANA3, HEPAN, B2GPG, B2GPM, B2GPA #### [address] #### LUPUS #### The performing lab is in the report. Creatinine [Mass/Vol] 0.95 mg/dL Normal 0.52-1.25 [facility] Comment on above: Performed By: #### A PTT, TSH5, HEMDF, LDH3, DDI2, BMP3M, ESR, FOLT3, URIC3, FEIBC, FERR3, B12, FT4M #### [address] [place] [address] #### HVAAO, ANA3, HEPAN, B2GPG, B2GPM, B2GPA #### [address] #### LUPUS #### The performing lab is in the report. GFR/1.73 sq M.predicted among blacks MDRD (S/P/Bld) [Vol rate/Area] 66.2 mL/min/{1.73_m2} Normal >60 [facility] Comment on above: Performed By: #### A PTT, TSH5, HEMDF, LDH3, DDI2, BMP3M, ESR, FOLT3, URIC3, FEIBC, FERR3, B12, FT4M #### [employer] [address] [place] [address] #### HVAAO, ANA3, HEPAN, B2GPG, B2GPM, B2GPA #### [employer] [facility] [address] [place] [address] #### LUPUS #### The performing lab is in the report. GFR/1.73 sq M.predicted among non-blacks MDRD (S/P/Bld) [Vol rate/Area] 57.1 mL/min/{1.73_m2} Abnormal >60 [facility] Comment on above: Result Comment: KDIG O guidelines provide the following GFR categories: Stage GFR(ml/min/1.73 m2) Terms G1 >=90 Normal or high G2 60-89 Mildly decreased* G3a 45-59 Mildly to moderately decreased G3b 30-44 Moderately to severely decreased G4 15-29 Severely decreased G5 <15 Kidney failure *Relative to young adult level. In the absence of evidence of kidney damage, neither GFR category G1 nor G2 fulfill the criteria for CKD. The CKD-EPI equation is validated in individuals 18 years of age and older. Currently the best equation for estimating glomerular filtration rate (GFR) from serum creatinine in children is the Bedside Kerr equation. It is less accurate in patients with extremes of muscle mass, restriction of dietary protein, ingestion of creatine, extra-renal metabolism of creatinine, or treatment with medications that affect renal tubular creatinine secretion. Performed By: #### A PTT, TSH5, HEMDF, LDH3, DDI2, BMP3M, ESR, FOLT3, URIC3, FEIBC, FERR3, B12, FT4M #### [employer] [address] [place] [address] #### HVAAO, ANA3, HEPAN, B2GPG, B2GPM, B2GPA #### [address] #### LUPUS #### The performing lab is in the report. Glucose [Mass/Vol] 101 mg/dL High 70-100 [facility] Comment on above: Performed By: #### A PTT, TSH5, HEMDF, LDH3, DDI2, BMP3M, ESR, FOLT3, URIC3, FEIBC, FERR3, B12, FT4M #### [facility] [address] [place] [address] #### HVAAO, ANA3, HEPAN, B2GPG, B2GPM, B2GPA #### [address] #### LUPUS #### The performing lab is in the report. Urea nitrogen [Mass/Vol] 16 mg/dL Normal 9-20 [facility] Comment on above: Performed By: #### A PTT, TSH5, HEMDF, LDH3, DDI2, BMP3M, ESR, FOLT3, URIC3, FEIBC, FERR3, B12, FT4M #### [facility] [address] [place] [address] #### HVAAO, ANA3, HEPAN, B2GPG, B2GPM, B2GPA #### [address] #### LUPUS #### The performing lab is in the report. Chloride [Moles/Vol] 109 mmol/L High 98-107 [facility] Comment on above: Performed By: #### A PTT, TSH5, HEMDF, LDH3, DDI2, BMP3M, ESR, FOLT3, URIC3, FEIBC, FERR3, B12, FT4M #### [facility] [address] [place] [address] #### HVAAO, ANA3, HEPAN, B2GPG, B2GPM, B2GPA #### [address] #### LUPUS #### The performing lab is in the report. Potassium [Moles/Vol] 4.2 mmol/L Normal 3.5-5.1 [facility] Comment on above: Performed By: #### A PTT, TSH5, HEMDF, LDH3, DDI2, BMP3M, ESR, FOLT3, URIC3, FEIBC, FERR3, B12, FT4M #### [place] [address] [place] [address] #### HVAAO, ANA3, HEPAN, B2GPG, B2GPM, B2GPA #### [address] #### LUPUS #### The performing lab is in the report. Sodium [Moles/Vol] 142 mmol/L Normal 135-145 [facility] Comment on above: Performed By: #### A PTT, TSH5, HEMDF, LDH3, DDI2, BMP3M, ESR, FOLT3, URIC3, FEIBC, FERR3, B12, FT4M #### [place] [address] [place] [address] #### HVAAO, ANA3, HEPAN, B2GPG, B2GPM, B2GPA #### [address] #### LUPUS #### The performing lab is in the report. Hemogram w/ Autodiffon 11-10 Abs Baso Cnt 0.1 10*3/uL Normal 0.0-0.2 [facility] Comment on above: Performed By: #### A PTT, TSH5, HEMDF, LDH3, DDI2, BMP3M, ESR, FOLT3, URIC3, FEIBC, FERR3, B12, FT4M #### [place] [address] [place] [address] #### HVAAO, ANA3, HEPAN, B2GPG, B2GPM, B2GPA #### [address] #### LUPUS #### The performing lab is in the report. Abs Neutrophile Cnt 5.2 10*3/uL Normal 1.8-7.0 [facility] Comment on above: Performed By: #### A PTT, TSH5, HEMDF, LDH3, DDI2, BMP3M, ESR, FOLT3, URIC3, FEIBC, FERR3, B12, FT4M #### [place] [address] [place] [address] #### HVAAO, ANA3, HEPAN, B2GPG, B2GPM, B2GPA #### [address] #### LUPUS #### The performing lab is in the report. Basophils/100 WBC (Bld) 0.7 % Normal 0.0-2.0 [facility] Comment on above: Performed By: #### A PTT, TSH5, HEMDF, LDH3, DDI2, BMP3M, ESR, FOLT3, URIC3, FEIBC, FERR3, B12, FT4M #### [address] [place] #### HVAAO, ANA3, HEPAN, B2GPG, B2GPM, B2GPA #### [address] #### LUPUS #### The performing lab is in the report. Eosinophils (Bld) [#/Vol] 0.5 10*3/uL Normal 0.0-0.5 [facility] Comment on above: Performed By: #### A PTT, TSH5, HEMDF, LDH3, DDI2, BMP3M, ESR, FOLT3, URIC3, FEIBC, FERR3, B12, FT4M #### [address] [facility] [place] [place] #### HVAAO, ANA3, HEPAN, B2GPG, B2GPM, B2GPA #### [address] #### LUPUS #### The performing lab is in the report. Eosinophils/100 WBC (Bld) 5.8 % Normal 1.0-6.0 [facility] Comment on above: Performed By: #### A PTT, TSH5, HEMDF, LDH3, DDI2, BMP3M, ESR, FOLT3, URIC3, FEIBC, FERR3, B12, FT4M #### [facility] [address] [place] [address] #### HVAAO, ANA3, HEPAN, B2GPG, B2GPM, B2GPA #### [address] #### LUPUS #### The performing lab is in the report. Erythrocyte distribution width (RBC) [Ratio] 15.2 % High 11.5-14.5 [facility] Comment on above: Performed By: #### A PTT, TSH5, HEMDF, LDH3, DDI2, BMP3M, ESR, FOLT3, URIC3, FEIBC, FERR3, B12, FT4M #### [place] [address] [place] #### HVAAO, ANA3, HEPAN, B2GPG, B2GPM, B2GPA #### [address] #### LUPUS #### The performing lab is in the report. Granulocytes/100 WBC (Bld) 64.6 % Normal 40.0-80.0 [facility] Comment on above: Performed By: #### A PTT, TSH5, HEMDF, LDH3, DDI2, BMP3M, ESR, FOLT3, URIC3, FEIBC, FERR3, B12, FT4M #### [place] [address] [place] [address] #### HVAAO, ANA3, HEPAN, B2GPG, B2GPM, B2GPA #### [address] #### LUPUS #### The performing lab is in the report. Hematocrit (Bld) [Volume fraction] 37.8 % Normal 35.0-47.0 [facility] Comment on above: Performed By: #### A PTT, TSH5, HEMDF, LDH3, DDI2, BMP3M, ESR, FOLT3, URIC3, FEIBC, FERR3, B12, FT4M #### [address] [place] #### HVAAO, ANA3, HEPAN, B2GPG, B2GPM, B2GPA #### [address] #### LUPUS #### The performing lab is in the report. Hemoglobin (Bld) [Mass/Vol] 12.4 g/dL Normal 11.7-16.0 [facility] Comment on above: Performed By: #### A PTT, TSH5, HEMDF, LDH3, DDI2, BMP3M, ESR, FOLT3, URIC3, FEIBC, FERR3, B12, FT4M #### [address] [place] #### HVAAO, ANA3, HEPAN, B2GPG, B2GPM, B2GPA #### [address] #### LUPUS #### The performing lab is in the report. Lymphocytes (Bld) [#/Vol] 1.7 10*3/uL Normal 1.0-4.3 [facility] Comment on above: Performed By: #### A PTT, TSH5, HEMDF, LDH3, DDI2, BMP3M, ESR, FOLT3, URIC3, FEIBC, FERR3, B12, FT4M #### [address] [place] #### HVAAO, ANA3, HEPAN, B2GPG, B2GPM, B2GPA #### [address] #### LUPUS #### The performing lab is in the report. Lymphocytes/100 WBC (Bld) 21.0 % Normal 20.0-40.0 [facility] Comment on above: Performed By: #### A PTT, TSH5, HEMDF, LDH3, DDI2, BMP3M, ESR, FOLT3, URIC3, FEIBC, FERR3, B12, FT4M #### [address] [place] [place] [address] #### HVAAO, ANA3, HEPAN, B2GPG, B2GPM, B2GPA #### [address] [id number] #### LUPUS #### The performing lab is in the report. MCH (RBC) [Entitic mass] 30.5 pg Normal 26.0-34.0 [facility] Comment on above: Performed By: #### A PTT, TSH5, HEMDF, LDH3, DDI2, BMP3M, ESR, FOLT3, URIC3, FEIBC, FERR3, B12, FT4M #### [facility] [address] [place], [place] #### HVAAO, ANA3, HEPAN, B2GPG, B2GPM, B2GPA #### [address] #### LUPUS #### The performing lab is in the report. MCHC 32.8 % Normal 32.0-36.0 [facility] Comment on above: Performed By: #### A PTT, TSH5, HEMDF, LDH3, DDI2, BMP3M, ESR, FOLT3, URIC3, FEIBC, FERR3, B12, FT4M #### [facility] [address] [place], [place] #### HVAAO, ANA3, HEPAN, B2GPG, B2GPM, B2GPA #### [address] #### LUPUS #### The performing lab is in the report. MCV (RBC) [Entitic vol] 92.9 fL Normal 79.0-98.0 [facility] Comment on above: Performed By: #### A PTT, TSH5, HEMDF, LDH3, DDI2, BMP3M, ESR, FOLT3, URIC3, FEIBC, FERR3, B12, FT4M #### [facility] [address] [place] #### HVAAO, ANA3, HEPAN, B2GPG, B2GPM, B2GPA #### [address] #### LUPUS #### The performing lab is in the report. Monocytes (Bld) [#/Vol] 0.6 10*3/uL Normal 0.0-0.8 [facility] Comment on above: Performed By: #### A PTT, TSH5, HEMDF, LDH3, DDI2, BMP3M, ESR, FOLT3, URIC3, FEIBC, FERR3, B12, FT4M #### [facility] [address] [place] [address] #### HVAAO, ANA3, HEPAN, B2GPG, B2GPM, B2GPA #### [address] #### LUPUS #### The performing lab is in the report. Monocytes/100 WBC (Bld) 7.9 % Normal 2.0-10.0 [facility] Comment on above: Performed By: #### A PTT, TSH5, HEMDF, LDH3, DDI2, BMP3M, ESR, FOLT3, URIC3, FEIBC, FERR3, B12, FT4M #### [place] [address] [place] #### HVAAO, ANA3, HEPAN, B2GPG, B2GPM, B2GPA #### [address] #### LUPUS #### The performing lab is in the report. Platelet mean volume (Bld) [Entitic vol] 8.8 fL Normal 7.4-10.4 [facility] Comment on above: Performed By: #### A PTT, TSH5, HEMDF, LDH3, DDI2, BMP3M, ESR, FOLT3, URIC3, FEIBC, FERR3, B12, FT4M #### [address] [place] #### HVAAO, ANA3, HEPAN, B2GPG, B2GPM, B2GPA #### [address] #### LUPUS #### The performing lab is in the report. Platelets (Bld) [#/Vol] 280 10*3/uL Normal 140-440 [facility] Comment on above: Performed By: #### A PTT, TSH5, HEMDF, LDH3, DDI2, BMP3M, ESR, FOLT3, URIC3, FEIBC, FERR3, B12, FT4M #### [facility] [address] [place] [address] #### HVAAO, ANA3, HEPAN, B2GPG, B2GPM, B2GPA #### [address] #### LUPUS #### The performing lab is in the report. RBC (Bld) [#/Vol] 4.07 10*6/uL Normal 3.80-5.20 [facility] Comment on above: Performed By: #### A PTT, TSH5, HEMDF, LDH3, DDI2, BMP3M, ESR, FOLT3, URIC3, FEIBC, FERR3, B12, FT4M #### [place] [address] [place] [address] #### HVAAO, ANA3, HEPAN, B2GPG, B2GPM, B2GPA #### [address] #### LUPUS #### The performing lab is in the report. WBC (Bld) [#/Vol] 8.0 10*3/uL Normal 3.6-10.7 [facility] Comment on above: Performed By: #### A PTT, TSH5, HEMDF, LDH3, DDI2, BMP3M, ESR, FOLT3, URIC3, FEIBC, FERR3, B12, FT4M #### [address] [place] [address] #### HVAAO, ANA3, HEPAN, B2GPG, B2GPM, B2GPA #### [address] #### LUPUS #### The performing lab is in the report. SARS-CoV-2 Antigenon 022 SARS-CoV-2 Antigen Negative Normal Negative [facility] Comment on above: Result Comment: A negative result does not rule out the possibility of SARS-CoV-2 infection. NAAT-based methods should be considered for symptomatic patients presenting greater than seven days after onset of symptoms. Method: Lateral flow immunoassay. Fact sheets for healthcare providers and patients can be found at the following sites: https://www.[employer]gov/media/800659/download https://www.[employer]gov/media/097117/download Performed By: #### A PTT, TSH5, HEMDF, LDH3, DDI2, BMP3M, ESR, FOLT3, URIC3, FEIBC, FERR3, B12, FT4M #### [facility] [address] [place] [address] #### HVAAO, ANA3, HEPAN, B2GPG, B2GPM, B2GPA #### [address] #### LUPUS #### The performing lab is in the report. Basic Metabolic Panelon 10-23 Anion gap [Moles/Vol] 5 mmol/L Normal 3-13 [facility] Comment on above: Performed By: #### A PTT, TSH5, HEMDF, LDH3, DDI2, BMP3M, ESR, FOLT3, URIC3, FEIBC, FERR3, B12, FT4M #### [facility] [address] [place] [address] #### HVAAO, ANA3, HEPAN, B2GPG, B2GPM, B2GPA #### [address] #### LUPUS #### The performing lab is in the report. Calcium [Mass/Vol] 9.2 mg/dL Normal 8.4-10.4 [facility] Comment on above: Performed By: #### A PTT, TSH5, HEMDF, LDH3, DDI2, BMP3M, ESR, FOLT3, URIC3, FEIBC, FERR3, B12, FT4M #### [place] [address] [place] [address] #### HVAAO, ANA3, HEPAN, B2GPG, B2GPM, B2GPA #### [address] #### LUPUS #### The performing lab is in the report. CO2 [Moles/Vol] 28 mmol/L Normal 22-30 [facility] Comment on above: Performed By: #### A PTT, TSH5, HEMDF, LDH3, DDI2, BMP3M, ESR, FOLT3, URIC3, FEIBC, FERR3, B12, FT4M #### [facility] [address] [place] #### HVAAO, ANA3, HEPAN, B2GPG, B2GPM, B2GPA #### [address] #### LUPUS #### The performing lab is in the report. Glucose [Mass/Vol] 106 mg/dL High 70-100 [facility] Comment on above: Performed By: #### A PTT, TSH5, HEMDF, LDH3, DDI2, BMP3M, ESR, FOLT3, URIC3, FEIBC, FERR3, B12, FT4M #### [facility] [address] [place] #### HVAAO, ANA3, HEPAN, B2GPG, B2GPM, B2GPA #### [address] #### LUPUS #### The performing lab is in the report. Urea nitrogen [Mass/Vol] 14 mg/dL Normal 9-20 [facility] [facility] Comment on above: Performed By: #### A PTT, TSH5, HEMDF, LDH3, DDI2, BMP3M, ESR, FOLT3, URIC3, FEIBC, FERR3, B12, FT4M #### [facility] [address] [place] #### HVAAO, ANA3, HEPAN, B2GPG, B2GPM, B2GPA #### [address] #### LUPUS #### The performing lab is in the report. Creatinine [Mass/Vol] 0.88 mg/dL Normal 0.52-1.25 [facility] Comment on above: Performed By: #### A PTT, TSH5, HEMDF, LDH3, DDI2, BMP3M, ESR, FOLT3, URIC3, FEIBC, FERR3, B12, FT4M #### [facility] [address] [place] [address] #### HVAAO, ANA3, HEPAN, B2GPG, B2GPM, B2GPA #### [address] [phone] #### LUPUS #### The performing lab is in the report. GFR/1.73 sq M.predicted among blacks MDRD (S/P/Bld) [Vol rate/Area] 72.6 mL/min/{1.73_m2} Normal >60 [facility] Comment on above: Performed By: #### A PTT, TSH5, HEMDF, LDH3, DDI2, BMP3M, ESR, FOLT3, URIC3, FEIBC, FERR3, B12, FT4M #### [facility] [address] [place] [address] #### HVAAO, ANA3, HEPAN, B2GPG, B2GPM, B2GPA #### [address] [phone] #### LUPUS #### The performing lab is in the report. GFR/1.73 sq M.predicted among non-blacks MDRD (S/P/Bld) [Vol rate/Area] 62.7 mL/min/{1.73_m2} Normal >60 [facility] Comment on above: Result Comment: KDIG O guidelines provide the following GFR categories: Stage GFR(ml/min/1.73 m2) Terms G1 >=90 Normal or high G2 60-89 Mildly decreased* G3a 45-59 Mildly to moderately decreased G3b 30-44 Moderately to severely decreased G4 15-29 Severely decreased G5 <15 Kidney failure *Relative to young adult level. In the absence of evidence of kidney damage, neither GFR category G1 nor G2 fulfill the criteria for CKD. The CKD-EPI equation is validated in individuals 18 years of age and older. Currently the best equation for estimating glomerular filtration rate (GFR) from serum creatinine in children is the Bedside Kerr equation. It is less accurate in patients with extremes of muscle mass, restriction of dietary protein, ingestion of creatine, extra-renal metabolism of creatinine, or treatment with medications that affect renal tubular creatinine secretion. Performed By: #### A PTT, TSH5, HEMDF, LDH3, DDI2, BMP3M, ESR, FOLT3, URIC3, FEIBC, FERR3, B12, FT4M #### [place] [address] [place] [address] #### HVAAO, ANA3, HEPAN, B2GPG, B2GPM, B2GPA #### [address] #### LUPUS #### The performing lab is in the report. Chloride [Moles/Vol] 108 mmol/L High 98-107 [facility] Comment on above: Performed By: #### A PTT, TSH5, HEMDF, LDH3, DDI2, BMP3M, ESR, FOLT3, URIC3, FEIBC, FERR3, B12, FT4M #### [address] [place] [address] #### HVAAO, ANA3, HEPAN, B2GPG, B2GPM, B2GPA #### [place] [address] #### LUPUS #### The performing lab is in the report. Potassium [Moles/Vol] 4.1 mmol/L Normal 3.5-5.1 [facility] Comment on above: Performed By: #### A PTT, TSH5, HEMDF, LDH3, DDI2, BMP3M, ESR, FOLT3, URIC3, FEIBC, FERR3, B12, FT4M #### [place] [address] [place] [address] #### HVAAO, ANA3, HEPAN, B2GPG, B2GPM, B2GPA #### [address] [place] [address] #### LUPUS #### The performing lab is in the report. Sodium [Moles/Vol] 141 mmol/L Normal 135-145 [facility] Comment on above: Performed By: #### A PTT, TSH5, HEMDF, LDH3, DDI2, BMP3M, ESR, FOLT3, URIC3, FEIBC, FERR3, B12, FT4M #### [facility] [address] [place] [address] #### HVAAO, ANA3, HEPAN, B2GPG, B2GPM, B2GPA #### [facility] [address] [place] [address] #### LUPUS #### The performing lab is in the report. CR Chest Portableon 11-09-19 CR Chest Portable Patient Name: CHAY TEAGUE Diagnostic Radiology ACCESSION EXAM DATE/TIME PROCEDURE ORDERING PROVIDER [id number] 11/09/2021 13:45 EST CR Chest Portable MD RAY PADMAJA CPT code 95444 Reason For Exam (CR Chest Portable) Shortness of brrath Report Examination: AP portable chest Clinical Indication: Shortness of breath Comparison: 03/06/2020 Findings: Lungs appear normally inflated. Mild subsegmental atelectasis within the bilateral lower lungs. There is no focal consolidation, effusion, or pulmonary edema identified. The cardiomediastinal silhouette is within normal limits. Mild atherosclerotic calcification aortic arch. There is no gross evidence of osseous abnormality. Impression: No acute cardiopulmonary process. Report Dictated on Final Dictating Physician: MD MARTIN ANTHONY J Signed Date and Time: 11/09/2021 2:25 pm Signed by: MD MARTIN ANTHONY J Transcribed Date and Time: 11/09/2021 2:26 Normal [facility] Hemogram w/ Autodiffon 11-09 Abs Baso Cnt 0.1 10*3/uL Normal 0.0-0.2 [facility] Comment on above: Performed By: #### A PTT, TSH5, HEMDF, LDH3, DDI2, BMP3M, ESR, FOLT3, URIC3, FEIBC, FERR3, B12, FT4M #### [address] [place] [place] [address] #### HVAAO, ANA3, HEPAN, B2GPG, B2GPM, B2GPA #### [address] #### LUPUS #### The performing lab is in the report. Abs Neutrophile Cnt 7.7 10*3/uL High 1.8-7.0 [facility] Comment on above: Performed By: #### A PTT, TSH5, HEMDF, LDH3, DDI2, BMP3M, ESR, FOLT3, URIC3, FEIBC, FERR3, B12, FT4M #### [address] [place] [address] #### HVAAO, ANA3, HEPAN, B2GPG, B2GPM, B2GPA #### [address] #### LUPUS #### The performing lab is in the report. Basophils/100 WBC (Bld) 0.9 % Normal 0.0-2.0 [facility] Comment on above: Performed By: #### A PTT, TSH5, HEMDF, LDH3, DDI2, BMP3M, ESR, FOLT3, URIC3, FEIBC, FERR3, B12, FT4M #### [address] [place] [address] #### HVAAO, ANA3, HEPAN, B2GPG, B2GPM, B2GPA #### [address] #### LUPUS #### The performing lab is in the report. Eosinophils (Bld) [#/Vol] 0.5 10*3/uL Normal 0.0-0.5 [facility] Comment on above: Performed By: #### A PTT, TSH5, HEMDF, LDH3, DDI2, BMP3M, ESR, FOLT3, URIC3, FEIBC, FERR3, B12, FT4M #### [facility] [address] [place] [address] #### HVAAO, ANA3, HEPAN, B2GPG, B2GPM, B2GPA #### [address] [phone] #### LUPUS #### The performing lab is in the report. Eosinophils/100 WBC (Bld) 4.4 % Normal 1.0-6.0 [facility] Comment on above: Performed By: #### A PTT, TSH5, HEMDF, LDH3, DDI2, BMP3M, ESR, FOLT3, URIC3, FEIBC, FERR3, B12, FT4M #### [address] [place] #### HVAAO, ANA3, HEPAN, B2GPG, B2GPM, B2GPA #### [address] [phone] #### LUPUS #### The performing lab is in the report. Erythrocyte distribution width (RBC) [Ratio] 15.4 % High 11.5-14.5 [facility] Comment on above: Performed By: #### A PTT, TSH5, HEMDF, LDH3, DDI2, BMP3M, ESR, FOLT3, URIC3, FEIBC, FERR3, B12, FT4M #### [address] [place] #### HVAAO, ANA3, HEPAN, B2GPG, B2GPM, B2GPA #### [address] [phone] #### LUPUS #### The performing lab is in the report. Granulocytes/100 WBC (Bld) 67.5 % Normal 40.0-80.0 [facility] Comment on above: Performed By: #### A PTT, TSH5, HEMDF, LDH3, DDI2, BMP3M, ESR, FOLT3, URIC3, FEIBC, FERR3, B12, FT4M #### [place] [address] [place] #### HVAAO, ANA3, HEPAN, B2GPG, B2GPM, B2GPA #### [address] #### LUPUS #### The performing lab is in the report. Hematocrit (Bld) [Volume fraction] 39.5 % Normal 35.0-47.0 [facility] Comment on above: Performed By: #### A PTT, TSH5, HEMDF, LDH3, DDI2, BMP3M, ESR, FOLT3, URIC3, FEIBC, FERR3, B12, FT4M #### [facility] [address] [place] #### HVAAO, ANA3, HEPAN, B2GPG, B2GPM, B2GPA #### [address] #### LUPUS #### The performing lab is in the report. Hemoglobin (Bld) [Mass/Vol] 12.9 g/dL Normal 11.7-16.0 [facility] Comment on above: Performed By: #### A PTT, TSH5, HEMDF, LDH3, DDI2, BMP3M, ESR, FOLT3, URIC3, FEIBC, FERR3, B12, FT4M #### [facility] [address] [place] #### HVAAO, ANA3, HEPAN, B2GPG, B2GPM, B2GPA #### [address] #### LUPUS #### The performing lab is in the report. Lymphocytes (Bld) [#/Vol] 2.2 10*3/uL Normal 1.0-4.3 [facility] Comment on above: Performed By: #### A PTT, TSH5, HEMDF, LDH3, DDI2, BMP3M, ESR, FOLT3, URIC3, FEIBC, FERR3, B12, FT4M #### [facility] [address] [place] #### HVAAO, ANA3, HEPAN, B2GPG, B2GPM, B2GPA #### [address] #### LUPUS #### The performing lab is in the report. Lymphocytes/100 WBC (Bld) 19.1 % Low 20.0-40.0 [facility] Comment on above: Performed By: #### A PTT, TSH5, HEMDF, LDH3, DDI2, BMP3M, ESR, FOLT3, URIC3, FEIBC, FERR3, B12, FT4M #### [facility] [address] [place], [place] #### HVAAO, ANA3, HEPAN, B2GPG, B2GPM, B2GPA #### [address] #### LUPUS #### The performing lab is in the report. MCH (RBC) [Entitic mass] 30.1 pg Normal 26.0-34.0 [facility] Comment on above: Performed By: #### A PTT, TSH5, HEMDF, LDH3, DDI2, BMP3M, ESR, FOLT3, URIC3, FEIBC, FERR3, B12, FT4M #### [facility] [address] [place] #### HVAAO, ANA3, HEPAN, B2GPG, B2GPM, B2GPA #### [address] #### LUPUS #### The performing lab is in the report. MCHC 32.6 % Normal 32.0-36.0 [facility] Comment on above: Performed By: #### A PTT, TSH5, HEMDF, LDH3, DDI2, BMP3M, ESR, FOLT3, URIC3, FEIBC, FERR3, B12, FT4M #### [facility] [address] [place] #### HVAAO, ANA3, HEPAN, B2GPG, B2GPM, B2GPA #### [address] #### LUPUS #### The performing lab is in the report. MCV (RBC) [Entitic vol] 92.4 fL Normal 79.0-98.0 [facility] Comment on above: Performed By: #### A PTT, TSH5, HEMDF, LDH3, DDI2, BMP3M, ESR, FOLT3, URIC3, FEIBC, FERR3, B12, FT4M #### [facility] [address] [place] [address] #### HVAAO, ANA3, HEPAN, B2GPG, B2GPM, B2GPA #### [address] #### LUPUS #### The performing lab is in the report. Monocytes (Bld) [#/Vol] 0.9 10*3/uL High 0.0-0.8 [facility] Comment on above: Performed By: #### A PTT, TSH5, HEMDF, LDH3, DDI2, BMP3M, ESR, FOLT3, URIC3, FEIBC, FERR3, B12, FT4M #### [address] [place] [address] #### HVAAO, ANA3, HEPAN, B2GPG, B2GPM, B2GPA #### [address] #### LUPUS #### The performing lab is in the report. Monocytes/100 WBC (Bld) 8.1 % Normal 2.0-10.0 [facility] Comment on above: Performed By: #### A PTT, TSH5, HEMDF, LDH3, DDI2, BMP3M, ESR, FOLT3, URIC3, FEIBC, FERR3, B12, FT4M #### [facility] [address] [place] [address] #### HVAAO, ANA3, HEPAN, B2GPG, B2GPM, B2GPA #### [address] #### LUPUS #### The performing lab is in the report. Platelet mean volume (Bld) [Entitic vol] 8.8 fL Normal 7.4-10.4 [facility] Comment on above: Performed By: #### A PTT, TSH5, HEMDF, LDH3, DDI2, BMP3M, ESR, FOLT3, URIC3, FEIBC, FERR3, B12, FT4M #### [facility] [address] [place] [address] #### HVAAO, ANA3, HEPAN, B2GPG, B2GPM, B2GPA #### [address] #### LUPUS #### The performing lab is in the report. Platelets (Bld) [#/Vol] 260 10*3/uL Normal 140-440 [facility] Comment on above: Performed By: #### A PTT, TSH5, HEMDF, LDH3, DDI2, BMP3M, ESR, FOLT3, URIC3, FEIBC, FERR3, B12, FT4M #### [facility] [address] [place] [address] #### HVAAO, ANA3, HEPAN, B2GPG, B2GPM, B2GPA #### [address] #### LUPUS #### The performing lab is in the report. RBC (Bld) [#/Vol] 4.27 10*6/uL Normal 3.80-5.20 [facility] Comment on above: Performed By: #### A PTT, TSH5, HEMDF, LDH3, DDI2, BMP3M, ESR, FOLT3, URIC3, FEIBC, FERR3, B12, FT4M #### [place] [address] [place] [address] #### HVAAO, ANA3, HEPAN, B2GPG, B2GPM, B2GPA #### [address] #### LUPUS #### The performing lab is in the report. WBC (Bld) [#/Vol] 11.4 10*3/uL High 3.6-10.7 [facility] Comment on above: Performed By: #### A PTT, TSH5, HEMDF, LDH3, DDI2, BMP3M, ESR, FOLT3, URIC3, FEIBC, FERR3, B12, FT4M #### [place] [address] [place] [address] #### HVAAO, ANA3, HEPAN, B2GPG, B2GPM, B2GPA #### [address] #### LUPUS #### The performing lab is in the report. Basic Metabolic Panelon 10-23 Calcium [Mass/Vol] 9.1 mg/dL Normal 8.4-10.4 [facility] Comment on above: Performed By: #### A PTT, TSH5, HEMDF, LDH3, DDI2, BMP3M, ESR, FOLT3, URIC3, FEIBC, FERR3, B12, FT4M #### [address] [place] [address] #### HVAAO, ANA3, HEPAN, B2GPG, B2GPM, B2GPA #### [address] #### LUPUS #### The performing lab is in the report. Anion gap [Moles/Vol] 6 mmol/L Normal 3-13 [facility] Comment on above: Performed By: #### A PTT, TSH5, HEMDF, LDH3, DDI2, BMP3M, ESR, FOLT3, URIC3, FEIBC, FERR3, B12, FT4M #### [place] [address] [place] [address] #### HVAAO, ANA3, HEPAN, B2GPG, B2GPM, B2GPA #### [address] #### LUPUS #### The performing lab is in the report. CO2 [Moles/Vol] 28 mmol/L Normal 22-30 [facility] Comment on above: Performed By: #### A PTT, TSH5, HEMDF, LDH3, DDI2, BMP3M, ESR, FOLT3, URIC3, FEIBC, FERR3, B12, FT4M #### [address] [place] [address] #### HVAAO, ANA3, HEPAN, B2GPG, B2GPM, B2GPA #### [address] #### LUPUS #### The performing lab is in the report. Creatinine [Mass/Vol] 0.90 mg/dL Normal 0.52-1.25 [facility] Comment on above: Performed By: #### A PTT, TSH5, HEMDF, LDH3, DDI2, BMP3M, ESR, FOLT3, URIC3, FEIBC, FERR3, B12, FT4M #### [address] [place] [address] #### HVAAO, ANA3, HEPAN, B2GPG, B2GPM, B2GPA #### [address] #### LUPUS #### The performing lab is in the report. GFR/1.73 sq M.predicted among blacks MDRD (S/P/Bld) [Vol rate/Area] 70.7 mL/min/{1.73_m2} Normal >60 [facility] Comment on above: Performed By: #### A PTT, TSH5, HEMDF, LDH3, DDI2, BMP3M, ESR, FOLT3, URIC3, FEIBC, FERR3, B12, FT4M #### [address] [place] [address] #### HVAAO, ANA3, HEPAN, B2GPG, B2GPM, B2GPA #### [address] #### LUPUS #### The performing lab is in the report. GFR/1.73 sq M.predicted among non-blacks MDRD (S/P/Bld) [Vol rate/Area] 61.0 mL/min/{1.73_m2} Normal >60 [facility] Comment on above: Result Comment: KDIG O guidelines provide the following GFR categories: Stage GFR(ml/min/1.73 m2) Terms G1 >=90 Normal or high G2 60-89 Mildly decreased* G3a 45-59 Mildly to moderately decreased G3b 30-44 Moderately to severely decreased G4 15-29 Severely decreased G5 <15 Kidney failure *Relative to young adult level. In the absence of evidence of kidney damage, neither GFR category G1 nor G2 fulfill the criteria for CKD. The CKD-EPI equation is validated in individuals 18 years of age and older. Currently the best equation for estimating glomerular filtration rate (GFR) from serum creatinine in children is the Bedside Kerr equation. It is less accurate in patients with extremes of muscle mass, restriction of dietary protein, ingestion of creatine, extra-renal metabolism of creatinine, or treatment with medications that affect renal tubular creatinine secretion. Performed By: #### A PTT, TSH5, HEMDF, LDH3, DDI2, BMP3M, ESR, FOLT3, URIC3, FEIBC, FERR3, B12, FT4M #### [address] [place] [address] #### HVAAO, ANA3, HEPAN, B2GPG, B2GPM, B2GPA #### [address] #### LUPUS #### The performing lab is in the report. Glucose [Mass/Vol] 136 mg/dL High 70-100 [facility] Comment on above: Performed By: #### A PTT, TSH5, HEMDF, LDH3, DDI2, BMP3M, ESR, FOLT3, URIC3, FEIBC, FERR3, B12, FT4M #### [facility] [address] [address] #### HVAAO, ANA3, HEPAN, B2GPG, B2GPM, B2GPA #### [address] #### LUPUS #### The performing lab is in the report. Urea nitrogen [Mass/Vol] 14 mg/dL Normal 9-20 [facility] Comment on above: Performed By: #### A PTT, TSH5, HEMDF, LDH3, DDI2, BMP3M, ESR, FOLT3, URIC3, FEIBC, FERR3, B12, FT4M #### [facility] [address] [place] [address] #### HVAAO, ANA3, HEPAN, B2GPG, B2GPM, B2GPA #### [address] #### LUPUS #### The performing lab is in the report. Chloride [Moles/Vol] 107 mmol/L Normal 98-107 [facility] Comment on above: Performed By: #### A PTT, TSH5, HEMDF, LDH3, DDI2, BMP3M, ESR, FOLT3, URIC3, FEIBC, FERR3, B12, FT4M #### [address] [place] [address] #### HVAAO, ANA3, HEPAN, B2GPG, B2GPM, B2GPA #### [address] #### LUPUS #### The performing lab is in the report. Potassium [Moles/Vol] 3.7 mmol/L Normal 3.5-5.1 [facility] Comment on above: Performed By: #### A PTT, TSH5, HEMDF, LDH3, DDI2, BMP3M, ESR, FOLT3, URIC3, FEIBC, FERR3, B12, FT4M #### [address] [place] [address] #### HVAAO, ANA3, HEPAN, B2GPG, B2GPM, B2GPA #### [address] #### LUPUS #### The performing lab is in the report. Sodium [Moles/Vol] 142 mmol/L Normal 135-145 [facility] Comment on above: Performed By: #### A PTT, TSH5, HEMDF, LDH3, DDI2, BMP3M, ESR, FOLT3, URIC3, FEIBC, FERR3, B12, FT4M #### [address] [facility] [place] #### HVAAO, ANA3, HEPAN, B2GPG, B2GPM, B2GPA #### [address] #### LUPUS #### The performing lab is in the report. Hemogram w/ Autodiffon 11-08 Abs Baso Cnt 0.1 10*3/uL Normal 0.0-0.2 [facility] Comment on above: Performed By: #### A PTT, TSH5, HEMDF, LDH3, DDI2, BMP3M, ESR, FOLT3, URIC3, FEIBC, FERR3, B12, FT4M #### [address] [facility] [place] [place] #### HVAAO, ANA3, HEPAN, B2GPG, B2GPM, B2GPA #### [address] #### LUPUS #### The performing lab is in the report. Abs Neutrophile Cnt 8.0 10*3/uL High 1.8-7.0 [facility] Comment on above: Performed By: #### A PTT, TSH5, HEMDF, LDH3, DDI2, BMP3M, ESR, FOLT3, URIC3, FEIBC, FERR3, B12, FT4M #### [address] [facility] [place] [place] #### HVAAO, ANA3, HEPAN, B2GPG, B2GPM, B2GPA #### [address] #### LUPUS #### The performing lab is in the report. Basophils/100 WBC (Bld) 0.5 % Normal 0.0-2.0 [facility] Comment on above: Performed By: #### A PTT, TSH5, HEMDF, LDH3, DDI2, BMP3M, ESR, FOLT3, URIC3, FEIBC, FERR3, B12, FT4M #### [address] [place] #### HVAAO, ANA3, HEPAN, B2GPG, B2GPM, B2GPA #### [address] [id number] #### LUPUS #### The performing lab is in the report. Eosinophils (Bld) [#/Vol] 0.3 10*3/uL Normal 0.0-0.5 [facility] Comment on above: Performed By: #### A PTT, TSH5, HEMDF, LDH3, DDI2, BMP3M, ESR, FOLT3, URIC3, FEIBC, FERR3, B12, FT4M #### [address] [place] [address] #### HVAAO, ANA3, HEPAN, B2GPG, B2GPM, B2GPA #### [address] #### LUPUS #### The performing lab is in the report. Eosinophils/100 WBC (Bld) 2.9 % Normal 1.0-6.0 [facility] Comment on above: Performed By: #### A PTT, TSH5, HEMDF, LDH3, DDI2, BMP3M, ESR, FOLT3, URIC3, FEIBC, FERR3, B12, FT4M #### [address] [place] [address] #### HVAAO, ANA3, HEPAN, B2GPG, B2GPM, B2GPA #### [address] #### LUPUS #### The performing lab is in the report. Erythrocyte distribution width (RBC) [Ratio] 15.2 % High 11.5-14.5 [facility] Comment on above: Performed By: #### A PTT, TSH5, HEMDF, LDH3, DDI2, BMP3M, ESR, FOLT3, URIC3, FEIBC, FERR3, B12, FT4M #### [address] [place] [address] #### HVAAO, ANA3, HEPAN, B2GPG, B2GPM, B2GPA #### [address] #### LUPUS #### The performing lab is in the report. Granulocytes/100 WBC (Bld) 72.6 % Normal 40.0-80.0 [facility] Comment on above: Performed By: #### A PTT, TSH5, HEMDF, LDH3, DDI2, BMP3M, ESR, FOLT3, URIC3, FEIBC, FERR3, B12, FT4M #### [facility] [address] [place] [address] #### HVAAO, ANA3, HEPAN, B2GPG, B2GPM, B2GPA #### [address] #### LUPUS #### The performing lab is in the report. Hematocrit (Bld) [Volume fraction] 39.8 % Normal 35.0-47.0 [facility] Comment on above: Performed By: #### A PTT, TSH5, HEMDF, LDH3, DDI2, BMP3M, ESR, FOLT3, URIC3, FEIBC, FERR3, B12, FT4M #### [facility] [address] [place], [place] #### HVAAO, ANA3, HEPAN, B2GPG, B2GPM, B2GPA #### [address] #### LUPUS #### The performing lab is in the report. Hemoglobin (Bld) [Mass/Vol] 13.0 g/dL Normal 11.7-16.0 [facility] Comment on above: Performed By: #### A PTT, TSH5, HEMDF, LDH3, DDI2, BMP3M, ESR, FOLT3, URIC3, FEIBC, FERR3, B12, FT4M #### [facility] [address] [place], [place] #### HVAAO, ANA3, HEPAN, B2GPG, B2GPM, B2GPA #### [address] #### LUPUS #### The performing lab is in the report. Lymphocytes (Bld) [#/Vol] 1.8 10*3/uL Normal 1.0-4.3 [facility] Comment on above: Performed By: #### A PTT, TSH5, HEMDF, LDH3, DDI2, BMP3M, ESR, FOLT3, URIC3, FEIBC, FERR3, B12, FT4M #### [facility] [address] [place] [address] #### HVAAO, ANA3, HEPAN, B2GPG, B2GPM, B2GPA #### [address] #### LUPUS #### The performing lab is in the report. Lymphocytes/100 WBC (Bld) 16.1 % Low 20.0-40.0 [facility] Comment on above: Performed By: #### A PTT, TSH5, HEMDF, LDH3, DDI2, BMP3M, ESR, FOLT3, URIC3, FEIBC, FERR3, B12, FT4M #### [place] [address] [place] [address] #### HVAAO, ANA3, HEPAN, B2GPG, B2GPM, B2GPA #### [address] #### LUPUS #### The performing lab is in the report. MCH (RBC) [Entitic mass] 30.4 pg Normal 26.0-34.0 [facility] Comment on above: Performed By: #### A PTT, TSH5, HEMDF, LDH3, DDI2, BMP3M, ESR, FOLT3, URIC3, FEIBC, FERR3, B12, FT4M #### [address] [place] [address] #### HVAAO, ANA3, HEPAN, B2GPG, B2GPM, B2GPA #### [address] #### LUPUS #### The performing lab is in the report. MCHC 32.8 % Normal 32.0-36.0 [facility] Comment on above: Performed By: #### A PTT, TSH5, HEMDF, LDH3, DDI2, BMP3M, ESR, FOLT3, URIC3, FEIBC, FERR3, B12, FT4M #### [facility] [address] [place] [address] #### HVAAO, ANA3, HEPAN, B2GPG, B2GPM, B2GPA #### [address] #### LUPUS #### The performing lab is in the report. MCV (RBC) [Entitic vol] 92.6 fL Normal 79.0-98.0 [facility] Comment on above: Performed By: #### A PTT, TSH5, HEMDF, LDH3, DDI2, BMP3M, ESR, FOLT3, URIC3, FEIBC, FERR3, B12, FT4M #### [address] [place] [address] #### HVAAO, ANA3, HEPAN, B2GPG, B2GPM, B2GPA #### [address] #### LUPUS #### The performing lab is in the report. Monocytes (Bld) [#/Vol] 0.9 10*3/uL High 0.0-0.8 [facility] Comment on above: Performed By: #### A PTT, TSH5, HEMDF, LDH3, DDI2, BMP3M, ESR, FOLT3, URIC3, FEIBC, FERR3, B12, FT4M #### [place] [address] [place] [address] #### HVAAO, ANA3, HEPAN, B2GPG, B2GPM, B2GPA #### [address] #### LUPUS #### The performing lab is in the report. Monocytes/100 WBC (Bld) 7.9 % Normal 2.0-10.0 [facility] Comment on above: Performed By: #### A PTT, TSH5, HEMDF, LDH3, DDI2, BMP3M, ESR, FOLT3, URIC3, FEIBC, FERR3, B12, FT4M #### [place] [address] [place] [address] #### HVAAO, ANA3, HEPAN, B2GPG, B2GPM, B2GPA #### [address] #### LUPUS #### The performing lab is in the report. Platelet mean volume (Bld) [Entitic vol] 8.7 fL Normal 7.4-10.4 [facility] Comment on above: Performed By: #### A PTT, TSH5, HEMDF, LDH3, DDI2, BMP3M, ESR, FOLT3, URIC3, FEIBC, FERR3, B12, FT4M #### [address] [place] #### HVAAO, ANA3, HEPAN, B2GPG, B2GPM, B2GPA #### [address] #### LUPUS #### The performing lab is in the report. Platelets (Bld) [#/Vol] 236 10*3/uL Normal 140-440 [facility] Comment on above: Performed By: #### A PTT, TSH5, HEMDF, LDH3, DDI2, BMP3M, ESR, FOLT3, URIC3, FEIBC, FERR3, B12, FT4M #### [address] [place] #### HVAAO, ANA3, HEPAN, B2GPG, B2GPM, B2GPA #### [address] #### LUPUS #### The performing lab is in the report. RBC (Bld) [#/Vol] 4.29 10*6/uL Normal 3.80-5.20 [facility] Comment on above: Performed By: #### A PTT, TSH5, HEMDF, LDH3, DDI2, BMP3M, ESR, FOLT3, URIC3, FEIBC, FERR3, B12, FT4M #### [place] [address] [place] [address] #### HVAAO, ANA3, HEPAN, B2GPG, B2GPM, B2GPA #### [address] #### LUPUS #### The performing lab is in the report. WBC (Bld) [#/Vol] 11.0 10*3/uL High 3.6-10.7 [facility] Comment on above: Performed By: #### A PTT, TSH5, HEMDF, LDH3, DDI2, BMP3M, ESR, FOLT3, URIC3, FEIBC, FERR3, B12, FT4M #### [place] [address] [place] [address] #### HVAAO, ANA3, HEPAN, B2GPG, B2GPM, B2GPA #### [address] #### LUPUS #### The performing lab is in the report. APTTon 11-07-2021 aPTT Coag (Bld) [Time] 29.9 s Normal 20.0-30.5 [facility] Comment on above: Result Comment: NOTE : The therapeutic time for Heparin anticoagulation, based on Xa activity inhibition, is an APTT of 46-80 seconds. Performed By: #### A PTT, TSH5, HEMDF, LDH3, DDI2, BMP3M, ESR, FOLT3, URIC3, FEIBC, FERR3, B12, FT4M #### [place] [address] [place] [address] #### HVAAO, ANA3, HEPAN, B2GPG, B2GPM, B2GPA #### [address] #### LUPUS #### The performing lab is in the report. Basic Metabolic Panelon 10-23 Calcium [Mass/Vol] 9.1 mg/dL Normal 8.4-10.4 [facility] Comment on above: Performed By: #### A PTT, TSH5, HEMDF, LDH3, DDI2, BMP3M, ESR, FOLT3, URIC3, FEIBC, FERR3, B12, FT4M #### [place] [address] [place] [address] #### HVAAO, ANA3, HEPAN, B2GPG, B2GPM, B2GPA #### [address] #### LUPUS #### The performing lab is in the report. Anion gap [Moles/Vol] 5 mmol/L Normal 3-13 [facility] Comment on above: Performed By: #### A PTT, TSH5, HEMDF, LDH3, DDI2, BMP3M, ESR, FOLT3, URIC3, FEIBC, FERR3, B12, FT4M #### [address] [place] #### HVAAO, ANA3, HEPAN, B2GPG, B2GPM, B2GPA #### [address] #### LUPUS #### The performing lab is in the report. CO2 [Moles/Vol] 27 mmol/L Normal 22-30 [facility] Comment on above: Performed By: #### A PTT, TSH5, HEMDF, LDH3, DDI2, BMP3M, ESR, FOLT3, URIC3, FEIBC, FERR3, B12, FT4M #### [address] [place] [place] [address] #### HVAAO, ANA3, HEPAN, B2GPG, B2GPM, B2GPA #### [address] #### LUPUS #### The performing lab is in the report. Creatinine [Mass/Vol] 0.87 mg/dL Normal 0.52-1.25 [facility] Comment on above: Performed By: #### A PTT, TSH5, HEMDF, LDH3, DDI2, BMP3M, ESR, FOLT3, URIC3, FEIBC, FERR3, B12, FT4M #### [facility] [address] [place] [address] #### HVAAO, ANA3, HEPAN, B2GPG, B2GPM, B2GPA #### [facility] [address] [place] [address] #### LUPUS #### The performing lab is in the report. GFR/1.73 sq M.predicted among blacks MDRD (S/P/Bld) [Vol rate/Area] 73.7 mL/min/{1.73_m2} Normal >60 [facility] Comment on above: Performed By: #### A PTT, TSH5, HEMDF, LDH3, DDI2, BMP3M, ESR, FOLT3, URIC3, FEIBC, FERR3, B12, FT4M #### [facility] [address] [place] [address] #### HVAAO, ANA3, HEPAN, B2GPG, B2GPM, B2GPA #### [address] [address] #### LUPUS #### The performing lab is in the report. GFR/1.73 sq M.predicted among non-blacks MDRD (S/P/Bld) [Vol rate/Area] 63.6 mL/min/{1.73_m2} Normal >60 [facility] Comment on above: Result Comment: KDIG O guidelines provide the following GFR categories: Stage GFR(ml/min/1.73 m2) Terms G1 >=90 Normal or high G2 60-89 Mildly decreased* G3a 45-59 Mildly to moderately decreased G3b 30-44 Moderately to severely decreased G4 15-29 Severely decreased G5 <15 Kidney failure *Relative to young adult level. In the absence of evidence of kidney damage, neither GFR category G1 nor G2 fulfill the criteria for CKD. The CKD-EPI equation is validated in individuals 18 years of age and older. Currently the best equation for estimating glomerular filtration rate (GFR) from serum creatinine in children is the Bedside Kerr equation. It is less accurate in patients with extremes of muscle mass, restriction of dietary protein, ingestion of creatine, extra-renal metabolism of creatinine, or treatment with medications that affect renal tubular creatinine secretion. Performed By: #### A PTT, TSH5, HEMDF, LDH3, DDI2, BMP3M, ESR, FOLT3, URIC3, FEIBC, FERR3, B12, FT4M #### [place] [address] [place] [address] #### HVAAO, ANA3, HEPAN, B2GPG, B2GPM, B2GPA #### [address] #### LUPUS #### The performing lab is in the report. Glucose [Mass/Vol] 111 mg/dL High 70-100 [facility] Comment on above: Performed By: #### A PTT, TSH5, HEMDF, LDH3, DDI2, BMP3M, ESR, FOLT3, URIC3, FEIBC, FERR3, B12, FT4M #### [address] [place] #### HVAAO, ANA3, HEPAN, B2GPG, B2GPM, B2GPA #### [address] #### LUPUS #### The performing lab is in the report. Urea nitrogen [Mass/Vol] 12 mg/dL Normal 9-20 [facility] Comment on above: Performed By: #### A PTT, TSH5, HEMDF, LDH3, DDI2, BMP3M, ESR, FOLT3, URIC3, FEIBC, FERR3, B12, FT4M #### [address] [place] [place] [address] #### HVAAO, ANA3, HEPAN, B2GPG, B2GPM, B2GPA #### [address] #### LUPUS #### The performing lab is in the report. Chloride [Moles/Vol] 109 mmol/L High 98-107 [facility] Comment on above: Performed By: #### A PTT, TSH5, HEMDF, LDH3, DDI2, BMP3M, ESR, FOLT3, URIC3, FEIBC, FERR3, B12, FT4M #### [facility] [address] [place] [address] #### HVAAO, ANA3, HEPAN, B2GPG, B2GPM, B2GPA #### [address] #### LUPUS #### The performing lab is in the report. Potassium [Moles/Vol] 3.9 mmol/L Normal 3.5-5.1 [facility] Comment on above: Performed By: #### A PTT, TSH5, HEMDF, LDH3, DDI2, BMP3M, ESR, FOLT3, URIC3, FEIBC, FERR3, B12, FT4M #### [place] [address] [place] [facility] #### HVAAO, ANA3, HEPAN, B2GPG, B2GPM, B2GPA #### [address] #### LUPUS #### The performing lab is in the report. Sodium [Moles/Vol] 141 mmol/L Normal 135-145 [facility] Comment on above: Performed By: #### A PTT, TSH5, HEMDF, LDH3, DDI2, BMP3M, ESR, FOLT3, URIC3, FEIBC, FERR3, B12, FT4M #### [place] [address] [place] [address] #### HVAAO, ANA3, HEPAN, B2GPG, B2GPM, B2GPA #### [address] #### LUPUS #### The performing lab is in the report. Hemogram w/ Autodiffon 11-07 Abs Baso Cnt 0.0 10*3/uL Normal 0.0-0.2 [facility] Comment on above: Performed By: #### A PTT, TSH5, HEMDF, LDH3, DDI2, BMP3M, ESR, FOLT3, URIC3, FEIBC, FERR3, B12, FT4M #### [place] [address] [place] #### HVAAO, ANA3, HEPAN, B2GPG, B2GPM, B2GPA #### [address] #### LUPUS #### The performing lab is in the report. Abs Neutrophile Cnt 6.0 10*3/uL Normal 1.8-7.0 [facility] Comment on above: Performed By: #### A PTT, TSH5, HEMDF, LDH3, DDI2, BMP3M, ESR, FOLT3, URIC3, FEIBC, FERR3, B12, FT4M #### [address] [place], [place] #### HVAAO, ANA3, HEPAN, B2GPG, B2GPM, B2GPA #### [address] #### LUPUS #### The performing lab is in the report. Basophils/100 WBC (Bld) 0.5 % Normal 0.0-2.0 [facility] Comment on above: Performed By: #### A PTT, TSH5, HEMDF, LDH3, DDI2, BMP3M, ESR, FOLT3, URIC3, FEIBC, FERR3, B12, FT4M #### [facility] [address] [place], [place] #### HVAAO, ANA3, HEPAN, B2GPG, B2GPM, B2GPA #### [address] #### LUPUS #### The performing lab is in the report. Eosinophils (Bld) [#/Vol] 0.4 10*3/uL Normal 0.0-0.5 [facility] Comment on above: Performed By: #### A PTT, TSH5, HEMDF, LDH3, DDI2, BMP3M, ESR, FOLT3, URIC3, FEIBC, FERR3, B12, FT4M #### [facility] [address] [place], [place] #### HVAAO, ANA3, HEPAN, B2GPG, B2GPM, B2GPA #### [address] #### LUPUS #### The performing lab is in the report. Eosinophils/100 WBC (Bld) 4.0 % Normal 1.0-6.0 [facility] Comment on above: Performed By: #### A PTT, TSH5, HEMDF, LDH3, DDI2, BMP3M, ESR, FOLT3, URIC3, FEIBC, FERR3, B12, FT4M #### [facility] [address] [place], [place] #### HVAAO, ANA3, HEPAN, B2GPG, B2GPM, B2GPA #### [address] #### LUPUS #### The performing lab is in the report. Erythrocyte distribution width (RBC) [Ratio] 15.1 % High 11.5-14.5 [facility] Comment on above: Performed By: #### A PTT, TSH5, HEMDF, LDH3, DDI2, BMP3M, ESR, FOLT3, URIC3, FEIBC, FERR3, B12, FT4M #### [facility] [address] [place] #### HVAAO, ANA3, HEPAN, B2GPG, B2GPM, B2GPA #### [address] #### LUPUS #### The performing lab is in the report. Granulocytes/100 WBC (Bld) 64.8 % Normal 40.0-80.0 [facility] Comment on above: Performed By: #### A PTT, TSH5, HEMDF, LDH3, DDI2, BMP3M, ESR, FOLT3, URIC3, FEIBC, FERR3, B12, FT4M #### [facility] [address] [place], [place] #### HVAAO, ANA3, HEPAN, B2GPG, B2GPM, B2GPA #### [address] [id number] #### LUPUS #### The performing lab is in the report. Hematocrit (Bld) [Volume fraction] 42.6 % Normal 35.0-47.0 [facility] Comment on above: Performed By: #### A PTT, TSH5, HEMDF, LDH3, DDI2, BMP3M, ESR, FOLT3, URIC3, FEIBC, FERR3, B12, FT4M #### [place] [address] [place] [address] #### HVAAO, ANA3, HEPAN, B2GPG, B2GPM, B2GPA #### [address] #### LUPUS #### The performing lab is in the report. Hemoglobin (Bld) [Mass/Vol] 13.9 g/dL Normal 11.7-16.0 [facility] Comment on above: Performed By: #### A PTT, TSH5, HEMDF, LDH3, DDI2, BMP3M, ESR, FOLT3, URIC3, FEIBC, FERR3, B12, FT4M #### [address] [place] #### HVAAO, ANA3, HEPAN, B2GPG, B2GPM, B2GPA #### [address] #### LUPUS #### The performing lab is in the report. Lymphocytes (Bld) [#/Vol] 2.1 10*3/uL Normal 1.0-4.3 [facility] Comment on above: Performed By: #### A PTT, TSH5, HEMDF, LDH3, DDI2, BMP3M, ESR, FOLT3, URIC3, FEIBC, FERR3, B12, FT4M #### [address] [place] [address] #### HVAAO, ANA3, HEPAN, B2GPG, B2GPM, B2GPA #### [address] #### LUPUS #### The performing lab is in the report. Lymphocytes/100 WBC (Bld) 22.8 % Normal 20.0-40.0 [facility] Comment on above: Performed By: #### A PTT, TSH5, HEMDF, LDH3, DDI2, BMP3M, ESR, FOLT3, URIC3, FEIBC, FERR3, B12, FT4M #### [facility] [address] [place] [address] #### HVAAO, ANA3, HEPAN, B2GPG, B2GPM, B2GPA #### [address] #### LUPUS #### The performing lab is in the report. MCH (RBC) [Entitic mass] 30.2 pg Normal 26.0-34.0 [facility] Comment on above: Performed By: #### A PTT, TSH5, HEMDF, LDH3, DDI2, BMP3M, ESR, FOLT3, URIC3, FEIBC, FERR3, B12, FT4M #### [address] [place] [address] #### HVAAO, ANA3, HEPAN, B2GPG, B2GPM, B2GPA #### [address] #### LUPUS #### The performing lab is in the report. MCHC 32.7 % Normal 32.0-36.0 [facility] Comment on above: Performed By: #### A PTT, TSH5, HEMDF, LDH3, DDI2, BMP3M, ESR, FOLT3, URIC3, FEIBC, FERR3, B12, FT4M #### [address] [place] [address] #### HVAAO, ANA3, HEPAN, B2GPG, B2GPM, B2GPA #### [address] #### LUPUS #### The performing lab is in the report. MCV (RBC) [Entitic vol] 92.4 fL Normal 79.0-98.0 [facility] Comment on above: Performed By: #### A PTT, TSH5, HEMDF, LDH3, DDI2, BMP3M, ESR, FOLT3, URIC3, FEIBC, FERR3, B12, FT4M #### [facility] [address] [place] [id number] #### HVAAO, ANA3, HEPAN, B2GPG, B2GPM, B2GPA #### [address] #### LUPUS #### The performing lab is in the report. Monocytes (Bld) [#/Vol] 0.7 10*3/uL Normal 0.0-0.8 [facility] Comment on above: Performed By: #### A PTT, TSH5, HEMDF, LDH3, DDI2, BMP3M, ESR, FOLT3, URIC3, FEIBC, FERR3, B12, FT4M #### [address] [place] [address] #### HVAAO, ANA3, HEPAN, B2GPG, B2GPM, B2GPA #### [address] #### LUPUS #### The performing lab is in the report. Monocytes/100 WBC (Bld) 7.9 % Normal 2.0-10.0 [facility] Comment on above: Performed By: #### A PTT, TSH5, HEMDF, LDH3, DDI2, BMP3M, ESR, FOLT3, URIC3, FEIBC, FERR3, B12, FT4M #### [address] [place] [address] #### HVAAO, ANA3, HEPAN, B2GPG, B2GPM, B2GPA #### [address] #### LUPUS #### The performing lab is in the report. Platelet mean volume (Bld) [Entitic vol] 8.7 fL Normal 7.4-10.4 [facility] Comment on above: Performed By: #### A PTT, TSH5, HEMDF, LDH3, DDI2, BMP3M, ESR, FOLT3, URIC3, FEIBC, FERR3, B12, FT4M #### [facility] [address] [place] [address] #### HVAAO, ANA3, HEPAN, B2GPG, B2GPM, B2GPA #### [address] #### LUPUS #### The performing lab is in the report. Platelets (Bld) [#/Vol] 232 10*3/uL Normal 140-440 [facility] Comment on above: Performed By: #### A PTT, TSH5, HEMDF, LDH3, DDI2, BMP3M, ESR, FOLT3, URIC3, FEIBC, FERR3, B12, FT4M #### [facility] [address] [place] [address] #### HVAAO, ANA3, HEPAN, B2GPG, B2GPM, B2GPA #### [address] #### LUPUS #### The performing lab is in the report. RBC (Bld) [#/Vol] 4.61 10*6/uL Normal 3.80-5.20 [facility] Comment on above: Performed By: #### A PTT, TSH5, HEMDF, LDH3, DDI2, BMP3M, ESR, FOLT3, URIC3, FEIBC, FERR3, B12, FT4M #### [facility] [address] [place] [address] #### HVAAO, ANA3, HEPAN, B2GPG, B2GPM, B2GPA #### [address] #### LUPUS #### The performing lab is in the report. WBC (Bld) [#/Vol] 9.2 10*3/uL Normal 3.6-10.7 [facility] Comment on above: Performed By: #### A PTT, TSH5, HEMDF, LDH3, DDI2, BMP3M, ESR, FOLT3, URIC3, FEIBC, FERR3, B12, FT4M #### [facility] [address] [place] [address] #### HVAAO, ANA3, HEPAN, B2GPG, B2GPM, B2GPA #### [facility] [address] [place] [address] #### LUPUS #### The performing lab is in the report. SARS-CoV-2, Flu A/B and RSVo n 11-07-2021 SARS-CoV-2 (COVID-19) RNA TATI+probe Ql (Unsp spec) SARS-CoV-2 --> Status: F Not Detected. Flu A PCR --> Status: F Not Detected. Flu B PCR --> Status: F Not Detected. RSV PCR --> Status: F Not Detected. Expected Result: Not Detected _ Method: Real-time, RT-PCR This assay was developed by [employer] and distributed under an Emergency Use Authorization (EUA) granted by the FDA for the qualitative detection of nucleic acids from SARS-CoV-2, Influenza A, Influenza B, and Respiratory Syncytial Virus. Provider and patient fact sheets can be found at https://www.fda.gov/media /959242/download and https://www.fda.gov/media /227346/download. Expected Result: Not Detected _ Method: Real-time, RT-PCR This assay was developed by [employer] and distributed under an Emergency Use Authorization (EUA) granted by the FDA for the qualitative detection of nucleic acids from SARS-CoV-2, Influenza A, Influenza B, and Respiratory Syncytial Virus. Provider and patient fact sheets can be found at https://www.fda.gov/media /230771/download and https://www.fda.gov/media /716640/download. Normal [facility] Comment on above: Performed By: #### A PTT, TSH5, HEMDF, LDH3, DDI2, BMP3M, ESR, FOLT3, URIC3, FEIBC, FERR3, B12, FT4M #### [facility] [address] [place] [address] #### HVAAO, ANA3, HEPAN, B2GPG, B2GPM, B2GPA #### [address] #### LUPUS #### The performing lab is in the report. APTTon 11-06-2021 aPTT Coag (Bld) [Time] 28.1 s Normal 20.0-30.5 [facility] Comment on above: Result Comment: NOTE : The therapeutic time for Heparin anticoagulation, based on Xa activity inhibition, is an APTT of 46-80 seconds. Performed By: #### A PTT, TSH5, HEMDF, LDH3, DDI2, BMP3M, ESR, FOLT3, URIC3, FEIBC, FERR3, B12, FT4M #### [address] [place] [address] #### HVAAO, ANA3, HEPAN, B2GPG, B2GPM, B2GPA #### [address] #### LUPUS #### The performing lab is in the report. Basic Metabolic Panelon 10-23 Anion gap [Moles/Vol] 6 mmol/L Normal 3-13 [facility] Comment on above: Performed By: #### A PTT, TSH5, HEMDF, LDH3, DDI2, BMP3M, ESR, FOLT3, URIC3, FEIBC, FERR3, B12, FT4M #### [address] [place] [place] [address] #### HVAAO, ANA3, HEPAN, B2GPG, B2GPM, B2GPA #### [address] #### LUPUS #### The performing lab is in the report. Calcium [Mass/Vol] 9.0 mg/dL Normal 8.4-10.4 [facility] Comment on above: Performed By: #### A PTT, TSH5, HEMDF, LDH3, DDI2, BMP3M, ESR, FOLT3, URIC3, FEIBC, FERR3, B12, FT4M #### [place] [address] [place] [address] #### HVAAO, ANA3, HEPAN, B2GPG, B2GPM, B2GPA #### [address] #### LUPUS #### The performing lab is in the report. CO2 [Moles/Vol] 28 mmol/L Normal 22-30 [facility] Comment on above: Performed By: #### A PTT, TSH5, HEMDF, LDH3, DDI2, BMP3M, ESR, FOLT3, URIC3, FEIBC, FERR3, B12, FT4M #### [facility] [address] [place], [place] #### HVAAO, ANA3, HEPAN, B2GPG, B2GPM, B2GPA #### [address] #### LUPUS #### The performing lab is in the report. Glucose [Mass/Vol] 105 mg/dL High 70-100 [facility] Comment on above: Performed By: #### A PTT, TSH5, HEMDF, LDH3, DDI2, BMP3M, ESR, FOLT3, URIC3, FEIBC, FERR3, B12, FT4M #### [facility] [address] [place] #### HVAAO, ANA3, HEPAN, B2GPG, B2GPM, B2GPA #### [address] #### LUPUS #### The performing lab is in the report. Urea nitrogen [Mass/Vol] 14 mg/dL Normal 9-20 [facility] Comment on above: Performed By: #### A PTT, TSH5, HEMDF, LDH3, DDI2, BMP3M, ESR, FOLT3, URIC3, FEIBC, FERR3, B12, FT4M #### [facility] [address] [place] [address] #### HVAAO, ANA3, HEPAN, B2GPG, B2GPM, B2GPA #### [address] #### LUPUS #### The performing lab is in the report. Creatinine [Mass/Vol] 0.90 mg/dL Normal 0.52-1.25 [facility] Comment on above: Performed By: #### A PTT, TSH5, HEMDF, LDH3, DDI2, BMP3M, ESR, FOLT3, URIC3, FEIBC, FERR3, B12, FT4M #### [facility] [address] [place] [address] #### HVAAO, ANA3, HEPAN, B2GPG, B2GPM, B2GPA #### [facility] [address] [place] [address] #### LUPUS #### The performing lab is in the report. GFR/1.73 sq M.predicted among blacks MDRD (S/P/Bld) [Vol rate/Area] 70.7 mL/min/{1.73_m2} Normal >60 [facility] Comment on above: Performed By: #### A PTT, TSH5, HEMDF, LDH3, DDI2, BMP3M, ESR, FOLT3, URIC3, FEIBC, FERR3, B12, FT4M #### [facility] [address] [place] [address] #### HVAAO, ANA3, HEPAN, B2GPG, B2GPM, B2GPA #### [address] [address] #### LUPUS #### The performing lab is in the report. GFR/1.73 sq M.predicted among non-blacks MDRD (S/P/Bld) [Vol rate/Area] 61.0 mL/min/{1.73_m2} Normal >60 [facility] Comment on above: Result Comment: KDIG O guidelines provide the following GFR categories: Stage GFR(ml/min/1.73 m2) Terms G1 >=90 Normal or high G2 60-89 Mildly decreased* G3a 45-59 Mildly to moderately decreased G3b 30-44 Moderately to severely decreased G4 15-29 Severely decreased G5 <15 Kidney failure *Relative to young adult level. In the absence of evidence of kidney damage, neither GFR category G1 nor G2 fulfill the criteria for CKD. The CKD-EPI equation is validated in individuals 18 years of age and older. Currently the best equation for estimating glomerular filtration rate (GFR) from serum creatinine in children is the Bedside Kerr equation. It is less accurate in patients with extremes of muscle mass, restriction of dietary protein, ingestion of creatine, extra-renal metabolism of creatinine, or treatment with medications that affect renal tubular creatinine secretion. Performed By: #### A PTT, TSH5, HEMDF, LDH3, DDI2, BMP3M, ESR, FOLT3, URIC3, FEIBC, FERR3, B12, FT4M #### [address] [place] [address] #### HVAAO, ANA3, HEPAN, B2GPG, B2GPM, B2GPA #### [address] #### LUPUS #### The performing lab is in the report. Potassium [Moles/Vol] 3.6 mmol/L Normal 3.5-5.1 [facility] Comment on above: Performed By: #### A PTT, TSH5, HEMDF, LDH3, DDI2, BMP3M, ESR, FOLT3, URIC3, FEIBC, FERR3, B12, FT4M #### [address] [place], [place] #### HVAAO, ANA3, HEPAN, B2GPG, B2GPM, B2GPA #### [address] #### LUPUS #### The performing lab is in the report. Chloride [Moles/Vol] 108 mmol/L High 98-107 [facility] Comment on above: Performed By: #### A PTT, TSH5, HEMDF, LDH3, DDI2, BMP3M, ESR, FOLT3, URIC3, FEIBC, FERR3, B12, FT4M #### [address] [place], [place] #### HVAAO, ANA3, HEPAN, B2GPG, B2GPM, B2GPA #### [address] #### LUPUS #### The performing lab is in the report. Sodium [Moles/Vol] 141 mmol/L Normal 135-145 [facility] Comment on above: Performed By: #### A PTT, TSH5, HEMDF, LDH3, DDI2, BMP3M, ESR, FOLT3, URIC3, FEIBC, FERR3, B12, FT4M #### [place] [address] [place] [address] #### HVAAO, ANA3, HEPAN, B2GPG, B2GPM, B2GPA #### [address] #### LUPUS #### The performing lab is in the report. Hemogram w/ Autodiffon 11-06 Abs Baso Cnt 0.1 10*3/uL Normal 0.0-0.2 [facility] Comment on above: Performed By: #### A PTT, TSH5, HEMDF, LDH3, DDI2, BMP3M, ESR, FOLT3, URIC3, FEIBC, FERR3, B12, FT4M #### [place] [address] [place] [address] #### HVAAO, ANA3, HEPAN, B2GPG, B2GPM, B2GPA #### [address] #### LUPUS #### The performing lab is in the report. Abs Neutrophile Cnt 5.9 10*3/uL Normal 1.8-7.0 [facility] Comment on above: Performed By: #### A PTT, TSH5, HEMDF, LDH3, DDI2, BMP3M, ESR, FOLT3, URIC3, FEIBC, FERR3, B12, FT4M #### [address] [place] [address] #### HVAAO, ANA3, HEPAN, B2GPG, B2GPM, B2GPA #### [address] #### LUPUS #### The performing lab is in the report. Basophils/100 WBC (Bld) 0.7 % Normal 0.0-2.0 [facility] Comment on above: Performed By: #### A PTT, TSH5, HEMDF, LDH3, DDI2, BMP3M, ESR, FOLT3, URIC3, FEIBC, FERR3, B12, FT4M #### [place] [address] [place] [address] #### HVAAO, ANA3, HEPAN, B2GPG, B2GPM, B2GPA #### [address] #### LUPUS #### The performing lab is in the report. Eosinophils (Bld) [#/Vol] 0.3 10*3/uL Normal 0.0-0.5 [facility] Comment on above: Performed By: #### A PTT, TSH5, HEMDF, LDH3, DDI2, BMP3M, ESR, FOLT3, URIC3, FEIBC, FERR3, B12, FT4M #### [address] [place] [id number] #### HVAAO, ANA3, HEPAN, B2GPG, B2GPM, B2GPA #### [address] #### LUPUS #### The performing lab is in the report. Eosinophils/100 WBC (Bld) 3.7 % Normal 1.0-6.0 [facility] Comment on above: Performed By: #### A PTT, TSH5, HEMDF, LDH3, DDI2, BMP3M, ESR, FOLT3, URIC3, FEIBC, FERR3, B12, FT4M #### [address] [place] [address] #### HVAAO, ANA3, HEPAN, B2GPG, B2GPM, B2GPA #### [address] #### LUPUS #### The performing lab is in the report. Erythrocyte distribution width (RBC) [Ratio] 15.2 % High 11.5-14.5 [facility] Comment on above: Performed By: #### A PTT, TSH5, HEMDF, LDH3, DDI2, BMP3M, ESR, FOLT3, URIC3, FEIBC, FERR3, B12, FT4M #### [address] [place] [place] [address] #### HVAAO, ANA3, HEPAN, B2GPG, B2GPM, B2GPA #### [address] #### LUPUS #### The performing lab is in the report. Granulocytes/100 WBC (Bld) 65.8 % Normal 40.0-80.0 [facility] Comment on above: Performed By: #### A PTT, TSH5, HEMDF, LDH3, DDI2, BMP3M, ESR, FOLT3, URIC3, FEIBC, FERR3, B12, FT4M #### [address] [facility] [place] [place] #### HVAAO, ANA3, HEPAN, B2GPG, B2GPM, B2GPA #### [address] #### LUPUS #### The performing lab is in the report. Hematocrit (Bld) [Volume fraction] 39.8 % Normal 35.0-47.0 [facility] Comment on above: Performed By: #### A PTT, TSH5, HEMDF, LDH3, DDI2, BMP3M, ESR, FOLT3, URIC3, FEIBC, FERR3, B12, FT4M #### [address] [place] #### HVAAO, ANA3, HEPAN, B2GPG, B2GPM, B2GPA #### [address] #### LUPUS #### The performing lab is in the report. Hemoglobin (Bld) [Mass/Vol] 13.2 g/dL Normal 11.7-16.0 [facility] Comment on above: Performed By: #### A PTT, TSH5, HEMDF, LDH3, DDI2, BMP3M, ESR, FOLT3, URIC3, FEIBC, FERR3, B12, FT4M #### [facility] [address] [place] [address] #### HVAAO, ANA3, HEPAN, B2GPG, B2GPM, B2GPA #### [address] #### LUPUS #### The performing lab is in the report. Lymphocytes (Bld) [#/Vol] 2.0 10*3/uL Normal 1.0-4.3 [facility] Comment on above: Performed By: #### A PTT, TSH5, HEMDF, LDH3, DDI2, BMP3M, ESR, FOLT3, URIC3, FEIBC, FERR3, B12, FT4M #### [address] [place] [address] #### HVAAO, ANA3, HEPAN, B2GPG, B2GPM, B2GPA #### [address] #### LUPUS #### The performing lab is in the report. Lymphocytes/100 WBC (Bld) 22.0 % Normal 20.0-40.0 [facility] Comment on above: Performed By: #### A PTT, TSH5, HEMDF, LDH3, DDI2, BMP3M, ESR, FOLT3, URIC3, FEIBC, FERR3, B12, FT4M #### [address] [place] [address] #### HVAAO, ANA3, HEPAN, B2GPG, B2GPM, B2GPA #### [address] #### LUPUS #### The performing lab is in the report. MCH (RBC) [Entitic mass] 30.1 pg Normal 26.0-34.0 [facility] Comment on above: Performed By: #### A PTT, TSH5, HEMDF, LDH3, DDI2, BMP3M, ESR, FOLT3, URIC3, FEIBC, FERR3, B12, FT4M #### [address] [place] #### HVAAO, ANA3, HEPAN, B2GPG, B2GPM, B2GPA #### [address] #### LUPUS #### The performing lab is in the report. MCHC 33.2 % Normal 32.0-36.0 [facility] Comment on above: Performed By: #### A PTT, TSH5, HEMDF, LDH3, DDI2, BMP3M, ESR, FOLT3, URIC3, FEIBC, FERR3, B12, FT4M #### [facility] [address] [facility] [place] [place] #### HVAAO, ANA3, HEPAN, B2GPG, B2GPM, B2GPA #### [address] #### LUPUS #### The performing lab is in the report. MCV (RBC) [Entitic vol] 90.6 fL Normal 79.0-98.0 [facility] Comment on above: Performed By: #### A PTT, TSH5, HEMDF, LDH3, DDI2, BMP3M, ESR, FOLT3, URIC3, FEIBC, FERR3, B12, FT4M #### [facility] [address] [place], [place] #### HVAAO, ANA3, HEPAN, B2GPG, B2GPM, B2GPA #### [address] #### LUPUS #### The performing lab is in the report. Monocytes (Bld) [#/Vol] 0.7 10*3/uL Normal 0.0-0.8 [facility] Comment on above: Performed By: #### A PTT, TSH5, HEMDF, LDH3, DDI2, BMP3M, ESR, FOLT3, URIC3, FEIBC, FERR3, B12, FT4M #### [facility] [address] [facility] [place] [place] #### HVAAO, ANA3, HEPAN, B2GPG, B2GPM, B2GPA #### [address] #### LUPUS #### The performing lab is in the report. Monocytes/100 WBC (Bld) 7.8 % Normal 2.0-10.0 [facility] Comment on above: Performed By: #### A PTT, TSH5, HEMDF, LDH3, DDI2, BMP3M, ESR, FOLT3, URIC3, FEIBC, FERR3, B12, FT4M #### [facility] [address] [place] [address] #### HVAAO, ANA3, HEPAN, B2GPG, B2GPM, B2GPA #### [address] #### LUPUS #### The performing lab is in the report. Platelet mean volume (Bld) [Entitic vol] 8.7 fL Normal 7.4-10.4 [facility] Comment on above: Performed By: #### A PTT, TSH5, HEMDF, LDH3, DDI2, BMP3M, ESR, FOLT3, URIC3, FEIBC, FERR3, B12, FT4M #### [facility] [address] [place] [address] #### HVAAO, ANA3, HEPAN, B2GPG, B2GPM, B2GPA #### [address] #### LUPUS #### The performing lab is in the report. Platelets (Bld) [#/Vol] 207 10*3/uL Normal 140-440 [facility] Comment on above: Performed By: #### A PTT, TSH5, HEMDF, LDH3, DDI2, BMP3M, ESR, FOLT3, URIC3, FEIBC, FERR3, B12, FT4M #### [facility] [address] [place] [address] #### HVAAO, ANA3, HEPAN, B2GPG, B2GPM, B2GPA #### [address] #### LUPUS #### The performing lab is in the report. RBC (Bld) [#/Vol] 4.39 10*6/uL Normal 3.80-5.20 [facility] Comment on above: Performed By: #### A PTT, TSH5, HEMDF, LDH3, DDI2, BMP3M, ESR, FOLT3, URIC3, FEIBC, FERR3, B12, FT4M #### [place] [address] [place] [address] #### HVAAO, ANA3, HEPAN, B2GPG, B2GPM, B2GPA #### [place] [address] [place], [place] #### LUPUS #### The performing lab is in the report. WBC (Bld) [#/Vol] 9.0 10*3/uL Normal 3.6-10.7 [facility] Comment on above: Performed By: #### A PTT, TSH5, HEMDF, LDH3, DDI2, BMP3M, ESR, FOLT3, URIC3, FEIBC, FERR3, B12, FT4M #### [address] [place] [address] #### HVAAO, ANA3, HEPAN, B2GPG, B2GPM, B2GPA #### [place] [address] [place], [place] #### LUPUS #### The performing lab is in the report. APTTon 11-05-2021 aPTT Coag (Bld) [Time] 58.6 s High 20.0-30.5 [facility] Comment on above: Result Comment: NOTE : The therapeutic time for Heparin anticoagulation, based on Xa activity inhibition, is an APTT of 46-80 seconds. Performed By: #### A PTT, TSH5, HEMDF, LDH3, DDI2, BMP3M, ESR, FOLT3, URIC3, FEIBC, FERR3, B12, FT4M ####[address] [place] [address]#### HVAAO, ANA3, HEPAN, B2GPG, B2GPM, B2GPA ####[address] [place] [address]#### LUPUS ####The performing lab is in the report. aPTT Coag (Bld) [Time] 65.8 s High 20.0-30.5 [facility] Comment on above: Result Comment: NOTE : The therapeutic time for Heparin anticoagulation, based on Xa activity inhibition, is an APTT of 46-80 seconds. Performed By: #### A PTT, TSH5, HEMDF, LDH3, DDI2, BMP3M, ESR, FOLT3, URIC3, FEIBC, FERR3, B12, FT4M #### [facility] [address] [place] [address] #### HVAAO, ANA3, HEPAN, B2GPG, B2GPM, B2GPA #### [address] [phone] #### LUPUS #### The performing lab is in the report. Acute Hepatitis Panelon 10-23 Hep C Antibody Not detected Normal Not Detected [facility] Comment on above: Result Comment: Patients with DETECTED Hepatitis C Ab results should have a new specimen submitted for supplemental testing with a Hepatitis C Quantitative RNA assay (viral load), if clinically indicated. Performed By: #### A PTT, TSH5, HEMDF, LDH3, DDI2, BMP3M, ESR, FOLT3, URIC3, FEIBC, FERR3, B12, FT4M ####[address] [address]#### HVAAO, ANA3, HEPAN, B2GPG, B2GPM, B2GPA ####[address] [address]#### LUPUS ####The performing lab is in the report. Hep A Virus Ab,IgM Not detected Normal Not Detected [facility] Comment on above: Performed By: #### A PTT, TSH5, HEMDF, LDH3, DDI2, BMP3M, ESR, FOLT3, URIC3, FEIBC, FERR3, B12, FT4M ####[address] [place] [address]#### HVAAO, ANA3, HEPAN, B2GPG, B2GPM, B2GPA ####[address] #### LUPUS ####The performing lab is in the report. Hep B Surface Ag Not detected Normal Not Detected [facility] Comment on above: Performed By: #### A PTT, TSH5, HEMDF, LDH3, DDI2, BMP3M, ESR, FOLT3, URIC3, FEIBC, FERR3, B12, FT4M ####[address] [place] [address]#### HVAAO, ANA3, HEPAN, B2GPG, B2GPM, B2GPA ####[address] #### LUPUS ####The performing lab is in the report. Hep B Core IgM Not detected Normal Not Detected [facility] Comment on above: Performed By: #### A PTT, TSH5, HEMDF, LDH3, DDI2, BMP3M, ESR, FOLT3, URIC3, FEIBC, FERR3, B12, FT4M ####[facility] [address] [place] [address]#### HVAAO, ANA3, HEPAN, B2GPG, B2GPM, B2GPA ####[address] #### LUPUS ####The performing lab is in the report. Basic Metabolic Panelon 10-23 Calcium [Mass/Vol] 9.1 mg/dL Normal 8.4-10.4 [facility] Comment on above: Performed By: #### A PTT, TSH5, HEMDF, LDH3, DDI2, BMP3M, ESR, FOLT3, URIC3, FEIBC, FERR3, B12, FT4M #### [address] [place] [address] #### HVAAO, ANA3, HEPAN, B2GPG, B2GPM, B2GPA #### [address] #### LUPUS #### The performing lab is in the report. Glucose [Mass/Vol] 110 mg/dL High 70-100 [facility] Comment on above: Performed By: #### A PTT, TSH5, HEMDF, LDH3, DDI2, BMP3M, ESR, FOLT3, URIC3, FEIBC, FERR3, B12, FT4M #### [place] [address] [place] [address] #### HVAAO, ANA3, HEPAN, B2GPG, B2GPM, B2GPA #### [address] #### LUPUS #### The performing lab is in the report. Urea nitrogen [Mass/Vol] 13 mg/dL Normal 9-20 [facility] Comment on above: Performed By: #### A PTT, TSH5, HEMDF, LDH3, DDI2, BMP3M, ESR, FOLT3, URIC3, FEIBC, FERR3, B12, FT4M #### [address] [place] [address] #### HVAAO, ANA3, HEPAN, B2GPG, B2GPM, B2GPA #### [address] #### LUPUS #### The performing lab is in the report. Anion gap [Moles/Vol] 3 mmol/L Normal 3-13 [facility] Comment on above: Performed By: #### A PTT, TSH5, HEMDF, LDH3, DDI2, BMP3M, ESR, FOLT3, URIC3, FEIBC, FERR3, B12, FT4M #### [address] [place] [address] #### HVAAO, ANA3, HEPAN, B2GPG, B2GPM, B2GPA #### [address] #### LUPUS #### The performing lab is in the report. CO2 [Moles/Vol] 29 mmol/L Normal 22-30 [facility] Comment on above: Performed By: #### A PTT, TSH5, HEMDF, LDH3, DDI2, BMP3M, ESR, FOLT3, URIC3, FEIBC, FERR3, B12, FT4M #### [facility] [address] [place] [address] #### HVAAO, ANA3, HEPAN, B2GPG, B2GPM, B2GPA #### [address] #### LUPUS #### The performing lab is in the report. Creatinine [Mass/Vol] 0.96 mg/dL Normal 0.52-1.25 [facility] Comment on above: Performed By: #### A PTT, TSH5, HEMDF, LDH3, DDI2, BMP3M, ESR, FOLT3, URIC3, FEIBC, FERR3, B12, FT4M #### [place] [address] [place] [address] #### HVAAO, ANA3, HEPAN, B2GPG, B2GPM, B2GPA #### [address] #### LUPUS #### The performing lab is in the report. GFR/1.73 sq M.predicted among blacks MDRD (S/P/Bld) [Vol rate/Area] 65.4 mL/min/{1.73_m2} Normal >60 [facility] Comment on above: Performed By: #### A PTT, TSH5, HEMDF, LDH3, DDI2, BMP3M, ESR, FOLT3, URIC3, FEIBC, FERR3, B12, FT4M #### [place] [address] [place] [address] #### HVAAO, ANA3, HEPAN, B2GPG, B2GPM, B2GPA #### [address] #### LUPUS #### The performing lab is in the report. GFR/1.73 sq M.predicted among non-blacks MDRD (S/P/Bld) [Vol rate/Area] 56.4 mL/min/{1.73_m2} Abnormal >60 [facility] Comment on above: Result Comment: KDIG O guidelines provide the following GFR categories: Stage GFR(ml/min/1.73 m2) Terms G1 >=90 Normal or high G2 60-89 Mildly decreased* G3a 45-59 Mildly to moderately decreased G3b 30-44 Moderately to severely decreased G4 15-29 Severely decreased G5 <15 Kidney failure *Relative to young adult level. In the absence of evidence of kidney damage, neither GFR category G1 nor G2 fulfill the criteria for CKD. The CKD-EPI equation is validated in individuals 18 years of age and older. Currently the best equation for estimating glomerular filtration rate (GFR) from serum creatinine in children is the Bedside Kerr equation. It is less accurate in patients with extremes of muscle mass, restriction of dietary protein, ingestion of creatine, extra-renal metabolism of creatinine, or treatment with medications that affect renal tubular creatinine secretion. Performed By: #### A PTT, TSH5, HEMDF, LDH3, DDI2, BMP3M, ESR, FOLT3, URIC3, FEIBC, FERR3, B12, FT4M #### [facility] [address] [place] [address] #### HVAAO, ANA3, HEPAN, B2GPG, B2GPM, B2GPA #### [address] [address] #### LUPUS #### The performing lab is in the report. Chloride [Moles/Vol] 107 mmol/L Normal 98-107 [facility] Comment on above: Performed By: #### A PTT, TSH5, HEMDF, LDH3, DDI2, BMP3M, ESR, FOLT3, URIC3, FEIBC, FERR3, B12, FT4M #### [facility] [address] [address] #### HVAAO, ANA3, HEPAN, B2GPG, B2GPM, B2GPA #### [address] [address] #### LUPUS #### The performing lab is in the report. Potassium [Moles/Vol] 3.8 mmol/L Normal 3.5-5.1 [facility] Comment on above: Performed By: #### A PTT, TSH5, HEMDF, LDH3, DDI2, BMP3M, ESR, FOLT3, URIC3, FEIBC, FERR3, B12, FT4M #### [facility] [address] [place] [address] #### HVAAO, ANA3, HEPAN, B2GPG, B2GPM, B2GPA #### [facility] [address] [place], [place] #### LUPUS #### The performing lab is in the report. Sodium [Moles/Vol] 139 mmol/L Normal 135-145 [facility] Comment on above: Performed By: #### A PTT, TSH5, HEMDF, LDH3, DDI2, BMP3M, ESR, FOLT3, URIC3, FEIBC, FERR3, B12, FT4M #### [facility] [address] [place] [address] #### HVAAO, ANA3, HEPAN, B2GPG, B2GPM, B2GPA #### [address] #### LUPUS #### The performing lab is in the report. Beta-2 Glycoprotein I IgAon 11-05-2021 Beta-2 Glycoprotein I IgA < 2.0 Normal [facility] Comment on above: Result Comment: Inte rpretive Information: Results equal to or greater than 20 U/mL = POSITIVE Results less than 20 U/mL = NEGATIVE Performed By: #### A PTT, TSH5, HEMDF, LDH3, DDI2, BMP3M, ESR, FOLT3, URIC3, FEIBC, FERR3, B12, FT4M ####[facility] [place] [address]#### HVAAO, ANA3, HEPAN, B2GPG, B2GPM, B2GPA ####[facility] [place], [place] #### LUPUS ####The performing lab is in the report. Beta-2 Glycoprotein I IgGon 11-05-2021 Beta-2 Glycoprotein I IgG < 1.4 Normal [facility] Comment on above: Result Comment: Inte rpretive Information: Results equal to or greater than 20 U/mL = POSITIVE Results less than 20 U/mL = NEGATIVE Performed By: #### A PTT, TSH5, HEMDF, LDH3, DDI2, BMP3M, ESR, FOLT3, URIC3, FEIBC, FERR3, B12, FT4M ####[place] [address]#### HVAAO, ANA3, HEPAN, B2GPG, B2GPM, B2GPA ####[address] [address]#### LUPUS ####The performing lab is in the report. Beta-2 Glycoprotein I IgMon 11-05-2021 Beta-2 Glycoprotein I IgM 2.4 U/mL Normal [facility] Comment on above: Result Comment: Inte rpretive Information: Results equal to or greater than 20 U/mL = POSITIVE Results less than 20 U/mL = NEGATIVE Performed By: #### A PTT, TSH5, HEMDF, LDH3, DDI2, BMP3M, ESR, FOLT3, URIC3, FEIBC, FERR3, B12, FT4M ####[facility] [address] [place] [address]#### HVAAO, ANA3, HEPAN, B2GPG, B2GPM, B2GPA ####[facility] [address] [address]#### LUPUS ####The performing lab is in the report. D-Dimer, Innovanceon 11-05-2 022 D-Dimer, Innovance 2.22 mg/L High <0.19-0.50 [facility] Comment on above: Result Comment: Inno williamson D-Dimer values of <0.50 mg/L FEU can be used in combination with a pre-test probability model (e.g. Well's) to exclude pulmonary embolism (PE) disease, as well as an aid in the diagnosis of deep vein thrombosis (DVT). Performed By: #### A PTT, TSH5, HEMDF, LDH3, DDI2, BMP3M, ESR, FOLT3, URIC3, FEIBC, FERR3, B12, FT4M ####[facility] [place] [address]#### HVAAO, ANA3, HEPAN, B2GPG, B2GPM, B2GPA ####[facility] [place], [place] #### LUPUS ####The performing lab is in the report. Ferritinon 11-05-2021 Ferritin [Mass/Vol] 76 ng/mL Normal 11-264 [facility] Comment on above: Performed By: #### A PTT, TSH5, HEMDF, LDH3, DDI2, BMP3M, ESR, FOLT3, URIC3, FEIBC, FERR3, B12, FT4M #### [facility] [address] [place] [address] #### HVAAO, ANA3, HEPAN, B2GPG, B2GPM, B2GPA #### [facility] [address] [place], [place] #### LUPUS #### The performing lab is in the report. Folateon 11-05-2021 Folate 9.8 ng/mL Normal [facility] Comment on above: Result Comment: >2.8 Performed By: #### A PTT, TSH5, HEMDF, LDH3, DDI2, BMP3M, ESR, FOLT3, URIC3, FEIBC, FERR3, B12, FT4M #### [facility] [address] [place] [address] #### HVAAO, ANA3, HEPAN, B2GPG, B2GPM, B2GPA #### [address] #### LUPUS #### The performing lab is in the report. Free T4on 11-05-2021 Free T4 [Mass/Vol] 1.21 ng/dL Normal 0.78-2.19 [facility] Comment on above: Performed By: #### A PTT, TSH5, HEMDF, LDH3, DDI2, BMP3M, ESR, FOLT3, URIC3, FEIBC, FERR3, B12, FT4M ####[facility] [place] [address]#### HVAAO, ANA3, HEPAN, B2GPG, B2GPM, B2GPA ####[place] [address] [place], [place] #### LUPUS ####The performing lab is in the report. HIV Ag - Abon 11-05-2021 HIV 1,2 Combo Antigen/Antibody Non-Reactive Normal Non-Reactiv e [facility] Comment on above: Result Comment: The specimen was non-reactive for HIV-1 and HIV-2 antibodies and p24 antigen using an FDA-cleared 4th generation HIV test. Based on this non-reactive screen result, further reflexive testing was not indicated and was, therefore, not performed. Performed By: #### A PTT, TSH5, HEMDF, LDH3, DDI2, BMP3M, ESR, FOLT3, URIC3, FEIBC, FERR3, B12, FT4M ####[address] [place] [address]#### HVAAO, ANA3, HEPAN, B2GPG, B2GPM, B2GPA ####[place] [place], [place] #### LUPUS ####The performing lab is in the report. Hemogram w/ Autodiffon 11-05 Abs Baso Cnt 0.1 10*3/uL Normal 0.0-0.2 [facility] Comment on above: Performed By: #### A PTT, TSH5, HEMDF, LDH3, DDI2, BMP3M, ESR, FOLT3, URIC3, FEIBC, FERR3, B12, FT4M #### [facility] [address] [place] [address] #### HVAAO, ANA3, HEPAN, B2GPG, B2GPM, B2GPA #### [facility] [address] [place], [place] #### LUPUS #### The performing lab is in the report. Abs Neutrophile Cnt 5.4 10*3/uL Normal 1.8-7.0 [facility] Comment on above: Performed By: #### A PTT, TSH5, HEMDF, LDH3, DDI2, BMP3M, ESR, FOLT3, URIC3, FEIBC, FERR3, B12, FT4M #### [facility] [address] [place] [address] #### HVAAO, ANA3, HEPAN, B2GPG, B2GPM, B2GPA #### [address] [phone] #### LUPUS #### The performing lab is in the report. Basophils/100 WBC (Bld) 1.0 % Normal 0.0-2.0 [facility] Comment on above: Performed By: #### A PTT, TSH5, HEMDF, LDH3, DDI2, BMP3M, ESR, FOLT3, URIC3, FEIBC, FERR3, B12, FT4M #### [place] [address] [place] [address] #### HVAAO, ANA3, HEPAN, B2GPG, B2GPM, B2GPA #### [address] [phone] #### LUPUS #### The performing lab is in the report. Eosinophils (Bld) [#/Vol] 0.4 10*3/uL Normal 0.0-0.5 [facility] Comment on above: Performed By: #### A PTT, TSH5, HEMDF, LDH3, DDI2, BMP3M, ESR, FOLT3, URIC3, FEIBC, FERR3, B12, FT4M #### [place] [address] [place] [address] #### HVAAO, ANA3, HEPAN, B2GPG, B2GPM, B2GPA #### [address] #### LUPUS #### The performing lab is in the report. Eosinophils/100 WBC (Bld) 4.9 % Normal 1.0-6.0 [facility] Comment on above: Performed By: #### A PTT, TSH5, HEMDF, LDH3, DDI2, BMP3M, ESR, FOLT3, URIC3, FEIBC, FERR3, B12, FT4M #### [address] [place] [address] #### HVAAO, ANA3, HEPAN, B2GPG, B2GPM, B2GPA #### [address] #### LUPUS #### The performing lab is in the report. Erythrocyte distribution width (RBC) [Ratio] 15.3 % High 11.5-14.5 [facility] Comment on above: Performed By: #### A PTT, TSH5, HEMDF, LDH3, DDI2, BMP3M, ESR, FOLT3, URIC3, FEIBC, FERR3, B12, FT4M #### [address] [place] [address] #### HVAAO, ANA3, HEPAN, B2GPG, B2GPM, B2GPA #### [address] #### LUPUS #### The performing lab is in the report. Granulocytes/100 WBC (Bld) 60.5 % Normal 40.0-80.0 [facility] Comment on above: Performed By: #### A PTT, TSH5, HEMDF, LDH3, DDI2, BMP3M, ESR, FOLT3, URIC3, FEIBC, FERR3, B12, FT4M #### [address] [place] [address] #### HVAAO, ANA3, HEPAN, B2GPG, B2GPM, B2GPA #### [address] #### LUPUS #### The performing lab is in the report. Hematocrit (Bld) [Volume fraction] 41.4 % Normal 35.0-47.0 [facility] Comment on above: Performed By: #### A PTT, TSH5, HEMDF, LDH3, DDI2, BMP3M, ESR, FOLT3, URIC3, FEIBC, FERR3, B12, FT4M #### [place] [address] [place] [id number] #### HVAAO, ANA3, HEPAN, B2GPG, B2GPM, B2GPA #### [address] #### LUPUS #### The performing lab is in the report. Hemoglobin (Bld) [Mass/Vol] 13.8 g/dL Normal 11.7-16.0 [facility] Comment on above: Performed By: #### A PTT, TSH5, HEMDF, LDH3, DDI2, BMP3M, ESR, FOLT3, URIC3, FEIBC, FERR3, B12, FT4M #### [address] [place] #### HVAAO, ANA3, HEPAN, B2GPG, B2GPM, B2GPA #### [address] #### LUPUS #### The performing lab is in the report. Lymphocytes (Bld) [#/Vol] 2.3 10*3/uL Normal 1.0-4.3 [facility] Comment on above: Performed By: #### A PTT, TSH5, HEMDF, LDH3, DDI2, BMP3M, ESR, FOLT3, URIC3, FEIBC, FERR3, B12, FT4M #### [address] [place] #### HVAAO, ANA3, HEPAN, B2GPG, B2GPM, B2GPA #### [address] #### LUPUS #### The performing lab is in the report. Lymphocytes/100 WBC (Bld) 25.8 % Normal 20.0-40.0 [facility] Comment on above: Performed By: #### A PTT, TSH5, HEMDF, LDH3, DDI2, BMP3M, ESR, FOLT3, URIC3, FEIBC, FERR3, B12, FT4M #### [facility] [address] [place] [address] #### HVAAO, ANA3, HEPAN, B2GPG, B2GPM, B2GPA #### [address] #### LUPUS #### The performing lab is in the report. MCH (RBC) [Entitic mass] 30.6 pg Normal 26.0-34.0 [facility] Comment on above: Performed By: #### A PTT, TSH5, HEMDF, LDH3, DDI2, BMP3M, ESR, FOLT3, URIC3, FEIBC, FERR3, B12, FT4M #### [place] [address] [place] [id number] #### HVAAO, ANA3, HEPAN, B2GPG, B2GPM, B2GPA #### [address] #### LUPUS #### The performing lab is in the report. MCHC 33.4 % Normal 32.0-36.0 [facility] Comment on above: Performed By: #### A PTT, TSH5, HEMDF, LDH3, DDI2, BMP3M, ESR, FOLT3, URIC3, FEIBC, FERR3, B12, FT4M #### [place] [address] [place] [id number] #### HVAAO, ANA3, HEPAN, B2GPG, B2GPM, B2GPA #### [address] #### LUPUS #### The performing lab is in the report. MCV (RBC) [Entitic vol] 91.7 fL Normal 79.0-98.0 [facility] Comment on above: Performed By: #### A PTT, TSH5, HEMDF, LDH3, DDI2, BMP3M, ESR, FOLT3, URIC3, FEIBC, FERR3, B12, FT4M #### [place] [address] [place] [address] #### HVAAO, ANA3, HEPAN, B2GPG, B2GPM, B2GPA #### [address] #### LUPUS #### The performing lab is in the report. Monocytes (Bld) [#/Vol] 0.7 10*3/uL Normal 0.0-0.8 [facility] Comment on above: Performed By: #### A PTT, TSH5, HEMDF, LDH3, DDI2, BMP3M, ESR, FOLT3, URIC3, FEIBC, FERR3, B12, FT4M #### [address] [place] [address] #### HVAAO, ANA3, HEPAN, B2GPG, B2GPM, B2GPA #### [address] #### LUPUS #### The performing lab is in the report. Monocytes/100 WBC (Bld) 7.8 % Normal 2.0-10.0 [facility] Comment on above: Performed By: #### A PTT, TSH5, HEMDF, LDH3, DDI2, BMP3M, ESR, FOLT3, URIC3, FEIBC, FERR3, B12, FT4M #### [address] [place] [address] #### HVAAO, ANA3, HEPAN, B2GPG, B2GPM, B2GPA #### [address] #### LUPUS #### The performing lab is in the report. Platelet mean volume (Bld) [Entitic vol] 9.0 fL Normal 7.4-10.4 [facility] Comment on above: Performed By: #### A PTT, TSH5, HEMDF, LDH3, DDI2, BMP3M, ESR, FOLT3, URIC3, FEIBC, FERR3, B12, FT4M #### [address] [place] [address] #### HVAAO, ANA3, HEPAN, B2GPG, B2GPM, B2GPA #### [address] #### LUPUS #### The performing lab is in the report. Platelets (Bld) [#/Vol] 221 10*3/uL Normal 140-440 [facility] Comment on above: Performed By: #### A PTT, TSH5, HEMDF, LDH3, DDI2, BMP3M, ESR, FOLT3, URIC3, FEIBC, FERR3, B12, FT4M #### [facility] [address] [place] [address] #### HVAAO, ANA3, HEPAN, B2GPG, B2GPM, B2GPA #### [address] #### LUPUS #### The performing lab is in the report. RBC (Bld) [#/Vol] 4.51 10*6/uL Normal 3.80-5.20 [facility] Comment on above: Performed By: #### A PTT, TSH5, HEMDF, LDH3, DDI2, BMP3M, ESR, FOLT3, URIC3, FEIBC, FERR3, B12, FT4M #### [facility] [address] [place], [place] #### HVAAO, ANA3, HEPAN, B2GPG, B2GPM, B2GPA #### [address] #### LUPUS #### The performing lab is in the report. WBC (Bld) [#/Vol] 8.9 10*3/uL Normal 3.6-10.7 [facility] Comment on above: Performed By: #### A PTT, TSH5, HEMDF, LDH3, DDI2, BMP3M, ESR, FOLT3, URIC3, FEIBC, FERR3, B12, FT4M #### [address] [place] #### HVAAO, ANA3, HEPAN, B2GPG, B2GPM, B2GPA #### [address] #### LUPUS #### The performing lab is in the report. Iron AND TIBCon 11-05-2021 Saturation 20 % Normal 15-50 [facility] Comment on above: Performed By: #### A PTT, TSH5, HEMDF, LDH3, DDI2, BMP3M, ESR, FOLT3, URIC3, FEIBC, FERR3, B12, FT4M ####[address] [place] [address]#### HVAAO, ANA3, HEPAN, B2GPG, B2GPM, B2GPA ####[address] #### LUPUS ####The performing lab is in the report. Total Iron Binding Cap. 296 ug/dL Normal 261-497 [facility] Comment on above: Performed By: #### A PTT, TSH5, HEMDF, LDH3, DDI2, BMP3M, ESR, FOLT3, URIC3, FEIBC, FERR3, B12, FT4M ####[address] [place] [address]#### HVAAO, ANA3, HEPAN, B2GPG, B2GPM, B2GPA ####[address] #### LUPUS ####The performing lab is in the report. Iron, Total 59 ug/dL Normal 37-170 [facility] Comment on above: Performed By: #### A PTT, TSH5, HEMDF, LDH3, DDI2, BMP3M, ESR, FOLT3, URIC3, FEIBC, FERR3, B12, FT4M ####[address] [place] [address]#### HVAAO, ANA3, HEPAN, B2GPG, B2GPM, B2GPA ####[address] #### LUPUS ####The performing lab is in the report. LDHon 11-05-2021 LDH 259 U/L High 120-246 [facility] Comment on above: Performed By: #### A PTT, TSH5, HEMDF, LDH3, DDI2, BMP3M, ESR, FOLT3, URIC3, FEIBC, FERR3, B12, FT4M #### [facility] [address] [place] [address] #### HVAAO, ANA3, HEPAN, B2GPG, B2GPM, B2GPA #### [address] #### LUPUS #### The performing lab is in the report. Sed Rateon 11-05-2021 Sed Rate 47 mm/h High 0-20 [facility] Comment on above: Performed By: #### A PTT, TSH5, HEMDF, LDH3, DDI2, BMP3M, ESR, FOLT3, URIC3, FEIBC, FERR3, B12, FT4M #### [address] [place] [address] #### HVAAO, ANA3, HEPAN, B2GPG, B2GPM, B2GPA #### [address] #### LUPUS #### The performing lab is in the report. Thyroid Stim. Hormoneon 10-23 Thyroid Stim. Hormone 3.596 u[IU]/mL Normal 0.465-4.68 0 [facility] Comment on above: Performed By: #### A PTT, TSH5, HEMDF, LDH3, DDI2, BMP3M, ESR, FOLT3, URIC3, FEIBC, FERR3, B12, FT4M #### [place] [address] [place] [address] #### HVAAO, ANA3, HEPAN, B2GPG, B2GPM, B2GPA #### [address] #### LUPUS #### The performing lab is in the report. Uric Acidon 11-05-2021 Urate [Mass/Vol] 7.3 mg/dL Normal 3.5-8.5 [facility] Comment on above: Performed By: #### A PTT, TSH5, HEMDF, LDH3, DDI2, BMP3M, ESR, FOLT3, URIC3, FEIBC, FERR3, B12, FT4M #### [facility] [address] [address] #### HVAAO, ANA3, HEPAN, B2GPG, B2GPM, B2GPA #### [facility] [address] [place] [address] #### LUPUS #### The performing lab is in the report. Vitamin B12on 11-05-2021 Cobalamin (Vitamin B12) [Mass/Vol] 228 pg/mL Low 239-931 [facility] Comment on above: Performed By: #### A PTT, TSH5, HEMDF, LDH3, DDI2, BMP3M, ESR, FOLT3, URIC3, FEIBC, FERR3, B12, FT4M ####[address] [place] [address]#### HVAAO, ANA3, HEPAN, B2GPG, B2GPM, B2GPA ####[facility] [place] [address]#### LUPUS ####The performing lab is in the report. APTTon 11-04-2021 aPTT Coag (Bld) [Time] 64.3 s High 20.0-30.5 [facility] Comment on above: Result Comment: NOTE : The therapeutic time for Heparin anticoagulation, based on Xa activity inhibition, is an APTT of 46-80 seconds. Performed By: #### A PTT #### [facility] [address] [address] aPTT Coag (Bld) [Time] 61.1 s High 20.0-30.5 [facility] Comment on above: Result Comment: NOTE : The therapeutic time for Heparin anticoagulation, based on Xa activity inhibition, is an APTT of 46-80 seconds. Performed By: #### A PTT, TSH5, HEMDF, LDH3, DDI2, BMP3M, ESR, FOLT3, URIC3, FEIBC, FERR3, B12, FT4M #### [facility] [address] [place] [address] #### HVAAO, ANA3, HEPAN, B2GPG, B2GPM, B2GPA #### [address] #### LUPUS #### The performing lab is in the report. aPTT Coag (Bld) [Time] 132.8 s Critically high 20.0-30. 5 [facility] Comment on above: Result Comment: NOTE : The therapeutic time for Heparin anticoagulation, based on Xa activity inhibition, is an APTT of 46-80 seconds. Performed By: #### A PTT, TSH5, HEMDF, LDH3, DDI2, BMP3M, ESR, FOLT3, URIC3, FEIBC, FERR3, B12, FT4M #### [address] [place] [address] #### HVAAO, ANA3, HEPAN, B2GPG, B2GPM, B2GPA #### [address] #### LUPUS #### The performing lab is in the report. aPTT Coag (Bld) [Time] 34.5 s High 20.0-30.5 [facility] Comment on above: Result Comment: NOTE : The therapeutic time for Heparin anticoagulation, based on Xa activity inhibition, is an APTT of 46-80 seconds. Performed By: #### A PTT, TSH5, HEMDF, LDH3, DDI2, BMP3M, ESR, FOLT3, URIC3, FEIBC, FERR3, B12, FT4M #### [address] [place] [address] #### HVAAO, ANA3, HEPAN, B2GPG, B2GPM, B2GPA #### [address] #### LUPUS #### The performing lab is in the report. Basic Metabolic Panelon - Calcium [Mass/Vol] 9.1 mg/dL Normal 8.4-10.4 [facility] Comment on above: Performed By: #### A PTT, TSH5, HEMDF, LDH3, DDI2, BMP3M, ESR, FOLT3, URIC3, FEIBC, FERR3, B12, FT4M #### [place] [address] [place] [address] #### HVAAO, ANA3, HEPAN, B2GPG, B2GPM, B2GPA #### [address] #### LUPUS #### The performing lab is in the report. Glucose [Mass/Vol] 123 mg/dL High 70-100 [facility] Comment on above: Performed By: #### A PTT, TSH5, HEMDF, LDH3, DDI2, BMP3M, ESR, FOLT3, URIC3, FEIBC, FERR3, B12, FT4M #### [address] [place] [address] #### HVAAO, ANA3, HEPAN, B2GPG, B2GPM, B2GPA #### [address] #### LUPUS #### The performing lab is in the report. Urea nitrogen [Mass/Vol] 16 mg/dL Normal 9-20 [facility] Comment on above: Performed By: #### A PTT, TSH5, HEMDF, LDH3, DDI2, BMP3M, ESR, FOLT3, URIC3, FEIBC, FERR3, B12, FT4M #### [address] [place] [address] #### HVAAO, ANA3, HEPAN, B2GPG, B2GPM, B2GPA #### [address] #### LUPUS #### The performing lab is in the report. Anion gap [Moles/Vol] 5 mmol/L Normal 3-13 [facility] Comment on above: Performed By: #### A PTT, TSH5, HEMDF, LDH3, DDI2, BMP3M, ESR, FOLT3, URIC3, FEIBC, FERR3, B12, FT4M #### [address] [place] [address] #### HVAAO, ANA3, HEPAN, B2GPG, B2GPM, B2GPA #### [address] #### LUPUS #### The performing lab is in the report. CO2 [Moles/Vol] 25 mmol/L Normal 22-30 [facility] Comment on above: Performed By: #### A PTT, TSH5, HEMDF, LDH3, DDI2, BMP3M, ESR, FOLT3, URIC3, FEIBC, FERR3, B12, FT4M #### [address] [facility] [place] [place] #### HVAAO, ANA3, HEPAN, B2GPG, B2GPM, B2GPA #### [address] #### LUPUS #### The performing lab is in the report. Creatinine [Mass/Vol] 0.94 mg/dL Normal 0.52-1.25 [facility] Comment on above: Performed By: #### A PTT, TSH5, HEMDF, LDH3, DDI2, BMP3M, ESR, FOLT3, URIC3, FEIBC, FERR3, B12, FT4M #### [address] [place] [address] #### HVAAO, ANA3, HEPAN, B2GPG, B2GPM, B2GPA #### [address] #### LUPUS #### The performing lab is in the report. GFR/1.73 sq M.predicted among blacks MDRD (S/P/Bld) [Vol rate/Area] 67.1 mL/min/{1.73_m2} Normal >60 [facility] Comment on above: Performed By: #### A PTT, TSH5, HEMDF, LDH3, DDI2, BMP3M, ESR, FOLT3, URIC3, FEIBC, FERR3, B12, FT4M #### [address] [place] [address] #### HVAAO, ANA3, HEPAN, B2GPG, B2GPM, B2GPA #### [address] #### LUPUS #### The performing lab is in the report. GFR/1.73 sq M.predicted among non-blacks MDRD (S/P/Bld) [Vol rate/Area] 57.9 mL/min/{1.73_m2} Abnormal >60 [facility] Comment on above: Result Comment: KDIG O guidelines provide the following GFR categories: Stage GFR(ml/min/1.73 m2) Terms G1 >=90 Normal or high G2 60-89 Mildly decreased* G3a 45-59 Mildly to moderately decreased G3b 30-44 Moderately to severely decreased G4 15-29 Severely decreased G5 <15 Kidney failure *Relative to young adult level. In the absence of evidence of kidney damage, neither GFR category G1 nor G2 fulfill the criteria for CKD. The CKD-EPI equation is validated in individuals 18 years of age and older. Currently the best equation for estimating glomerular filtration rate (GFR) from serum creatinine in children is the Bedside Kerr equation. It is less accurate in patients with extremes of muscle mass, restriction of dietary protein, ingestion of creatine, extra-renal metabolism of creatinine, or treatment with medications that affect renal tubular creatinine secretion. Performed By: #### A PTT, TSH5, HEMDF, LDH3, DDI2, BMP3M, ESR, FOLT3, URIC3, FEIBC, FERR3, B12, FT4M #### [facility] [address] [place] [address] #### HVAAO, ANA3, HEPAN, B2GPG, B2GPM, B2GPA #### [address] [address] #### LUPUS #### The performing lab is in the report. Chloride [Moles/Vol] 106 mmol/L Normal 98-107 [facility] Comment on above: Performed By: #### A PTT, TSH5, HEMDF, LDH3, DDI2, BMP3M, ESR, FOLT3, URIC3, FEIBC, FERR3, B12, FT4M #### [place] [address] [place] [address] #### HVAAO, ANA3, HEPAN, B2GPG, B2GPM, B2GPA #### [address] [address] #### LUPUS #### The performing lab is in the report. Potassium [Moles/Vol] 3.6 mmol/L Normal 3.5-5.1 [facility] Comment on above: Performed By: #### A PTT, TSH5, HEMDF, LDH3, DDI2, BMP3M, ESR, FOLT3, URIC3, FEIBC, FERR3, B12, FT4M #### [place] [address] [place] [address] #### HVAAO, ANA3, HEPAN, B2GPG, B2GPM, B2GPA #### [address] #### LUPUS #### The performing lab is in the report. Sodium [Moles/Vol] 135 mmol/L Normal 135-145 [facility] Comment on above: Performed By: #### A PTT, TSH5, HEMDF, LDH3, DDI2, BMP3M, ESR, FOLT3, URIC3, FEIBC, FERR3, B12, FT4M #### [address] [place] [address] #### HVAAO, ANA3, HEPAN, B2GPG, B2GPM, B2GPA #### [address] #### LUPUS #### The performing lab is in the report. Echo Complete w/wo Contrasto n 11-04-2021 Echo Complete w/wo Contrast Patient Name: CHAY TEAGUE Ultrasound ACCESSION EXAM DATE/TIME PROCEDURE ORDERING PROVIDER [id number] 11/04/2021 11:49 EST Echo Complete w/wo MD BERNARDINO, CAIN Contrast Reason For Exam (Echo Complete w/wo Contrast) DVT, chest pain Report TRANSTHORACIC ECHOCARDIOGRAM PATIENT: Chay Teague STUDY DATE: 11/04/2021 : 1945 AGE: 76 HT/WT: 160 cm (63 88.5 kg in) (194.6 lb) GENDER: F BP: 142 / 87 LOCATION: [facility] PATIENT Inpatient [facility] STATUS: *ORDERING PHYSICIAN: * Cain Lebron *READING PHYSICIAN: * Jayden ColonDESIGN DRAFTER CHIEF: * Iliana Real MD RDCS,AE, PE, RVT INDICATIONS: DVT, CHEST PAIN. CONCLUSIONS SUMMARY: 1. Left ventricle: The cavity size is normal. Wall thickness is normal. Systolic function is hyperdynamic by the biplane method of disks. The estimated ejection fraction is 74%. Doppler parameters are consistent with abnormal left ventricular relaxation (grade 1 diastolic dysfunction). E/e' average: 9 This value generally correlates with a normal (8-15) wedge pressure. 2. Right ventricle: The cavity size is mildly dilated. Systolic function is normal. 3. Left atrium: The atrium is normal in size. 4. Right atrium: The atrium is normal in size. 5. No significant valve disease. STUDY DATA: Complete transthoracic echocardiogram. Procedure: Image quality was poor. The study was technically limited due to poor acoustic window availability. Intravenous imaging enhancement (Definity) was administered to opacify the chamber. Definity lot #: [id number]. M-mode, complete 2D, strain rate, complete spectral Doppler, and color flow Doppler images were acquired and archived for permanent storage and are available for subsequent review. Study status: Routine. Patient status: Inpatient. Ultrasound Report FINDINGS LEFT VENTRICLE: The cavity size is normal. Wall thickness is normal. Systolic function is hyperdynamic by the biplane method of disks. The estimated ejection fraction is 74%. There are no regional wall motion abnormalities. Doppler parameters are consistent with abnormal left ventricular relaxation (grade 1 diastolic dysfunction). E/e' average: 9 This value generally correlates with a normal (8-15) wedge pressure. RIGHT VENTRICLE: The cavity size is mildly dilated. Systolic function is normal. VENTRICULAR SEPTUM: There is no evidence of a ventricular septal defect. LEFT ATRIUM: The atrium is normal in size. RIGHT ATRIUM: The atrium is normal in size. ATRIAL SEPTUM: Color Doppler shows no shunt. MITRAL VALVE: Structurally normal valve. Doppler: There is no regurgitation. The peak diastolic gradient is 2 mm Hg. AORTIC VALVE: Not well visualized. Doppler: There is no regurgitation. Dimensionless index: 1.28. The valve area by the velocity-time integral method is 4.0 cm^2. The valve area index by the velocity-time integral method is 2.1 cm^2/m^2. The mean systolic gradient is 7 mm Hg. The peak systolic gradient is 12 mm Hg. The peak systolic velocity is 1.7 m/sec. TRICUSPID VALVE: Structurally normal valve. Doppler: There is trivial, less than 1+ regurgitation. PULMONIC VALVE: Structurally normal valve. Doppler: There is trivial, less than 1+ regurgitation. AORTA: The aorta is poorly visualized and normal. PULMONARY ARTERY: Main pulmonary artery: Normal. PERICARDIUM: There is no pericardial effusion. SYSTEMIC VEINS: Not visualized. Measurements Left ventricle Value 06/04/2018 Reference LV ID, ED 3.9 cm 3.8 - 5.2 LV ID, ES (L) 1.8 cm 2.2 - 3.5 LV ID/bsa, ED (L) 2.0 cm/m^2 2.3 - 3.1 LV ID/bsa, ES (L) 0.9 cm/m^2 1.3 - 2.1 Stroke volume/bsa, 1-p 12.6 ml/m^2 A2C LV end-diastolic 70 ml 58 48 - 140 volume, 1-p A4C LV end-systolic volume, 16 ml 16 12 - 60 1-p A4C LV end-diastolic 51 ml 46 - 106 volume, 2-p LV end-systolic volume, (L) 13 ml 14 - 42 2-p LV ejection fraction, 74 % 54 - 74 2-p LV E/e', lateral 7.2 LV E/e', medial 13.2 LV E/e', average 9.3 Ventricular septum Value 06/04/2018 Reference IVS thickness, ED (H) 1.2 cm 0.6 - 0.9 LVOT Value 06/04/2018 Reference LVOT ID, A-P 2.0 cm LVOT mean velocity, S 1.1 m/sec Ultrasound Report LVOT peak gradient, S 15 mm Hg Stroke volume (SV) (more content not included)... Normal [facility] Hemogram w/ Autodiffon 11-04 Abs Baso Cnt 0.1 10*3/uL Normal 0.0-0.2 [facility] Comment on above: Performed By: #### A PTT, TSH5, HEMDF, LDH3, DDI2, BMP3M, ESR, FOLT3, URIC3, FEIBC, FERR3, B12, FT4M #### [facility] [address] [place] [address] #### HVAAO, ANA3, HEPAN, B2GPG, B2GPM, B2GPA #### [address] #### LUPUS #### The performing lab is in the report. Abs Neutrophile Cnt 7.2 10*3/uL High 1.8-7.0 [facility] Comment on above: Performed By: #### A PTT, TSH5, HEMDF, LDH3, DDI2, BMP3M, ESR, FOLT3, URIC3, FEIBC, FERR3, B12, FT4M #### [facility] [address] [place] [address] #### HVAAO, ANA3, HEPAN, B2GPG, B2GPM, B2GPA #### [address] [phone] #### LUPUS #### The performing lab is in the report. Basophils/100 WBC (Bld) 0.8 % Normal 0.0-2.0 [facility] Comment on above: Performed By: #### A PTT, TSH5, HEMDF, LDH3, DDI2, BMP3M, ESR, FOLT3, URIC3, FEIBC, FERR3, B12, FT4M #### [facility] [address] [place] [address] #### HVAAO, ANA3, HEPAN, B2GPG, B2GPM, B2GPA #### [address] #### LUPUS #### The performing lab is in the report. Eosinophils (Bld) [#/Vol] 0.5 10*3/uL Normal 0.0-0.5 [facility] Comment on above: Performed By: #### A PTT, TSH5, HEMDF, LDH3, DDI2, BMP3M, ESR, FOLT3, URIC3, FEIBC, FERR3, B12, FT4M #### [address] [place] [address] #### HVAAO, ANA3, HEPAN, B2GPG, B2GPM, B2GPA #### [address] #### LUPUS #### The performing lab is in the report. Eosinophils/100 WBC (Bld) 4.7 % Normal 1.0-6.0 [facility] Comment on above: Performed By: #### A PTT, TSH5, HEMDF, LDH3, DDI2, BMP3M, ESR, FOLT3, URIC3, FEIBC, FERR3, B12, FT4M #### [address] [place] #### HVAAO, ANA3, HEPAN, B2GPG, B2GPM, B2GPA #### [address] #### LUPUS #### The performing lab is in the report. Erythrocyte distribution width (RBC) [Ratio] 15.0 % High 11.5-14.5 [facility] Comment on above: Performed By: #### A PTT, TSH5, HEMDF, LDH3, DDI2, BMP3M, ESR, FOLT3, URIC3, FEIBC, FERR3, B12, FT4M #### [address] [place] [address] #### HVAAO, ANA3, HEPAN, B2GPG, B2GPM, B2GPA #### [address] #### LUPUS #### The performing lab is in the report. Granulocytes/100 WBC (Bld) 64.0 % Normal 40.0-80.0 [facility] Comment on above: Performed By: #### A PTT, TSH5, HEMDF, LDH3, DDI2, BMP3M, ESR, FOLT3, URIC3, FEIBC, FERR3, B12, FT4M #### [place] [address] [place] [address] #### HVAAO, ANA3, HEPAN, B2GPG, B2GPM, B2GPA #### [address] #### LUPUS #### The performing lab is in the report. Hematocrit (Bld) [Volume fraction] 40.2 % Normal 35.0-47.0 [facility] Comment on above: Performed By: #### A PTT, TSH5, HEMDF, LDH3, DDI2, BMP3M, ESR, FOLT3, URIC3, FEIBC, FERR3, B12, FT4M #### [facility] [address] [place] #### HVAAO, ANA3, HEPAN, B2GPG, B2GPM, B2GPA #### [address] #### LUPUS #### The performing lab is in the report. Hemoglobin (Bld) [Mass/Vol] 13.2 g/dL Normal 11.7-16.0 [facility] Comment on above: Performed By: #### A PTT, TSH5, HEMDF, LDH3, DDI2, BMP3M, ESR, FOLT3, URIC3, FEIBC, FERR3, B12, FT4M #### [facility] [address] [place] [address] #### HVAAO, ANA3, HEPAN, B2GPG, B2GPM, B2GPA #### [address] #### LUPUS #### The performing lab is in the report. Lymphocytes (Bld) [#/Vol] 2.5 10*3/uL Normal 1.0-4.3 [facility] Comment on above: Performed By: #### A PTT, TSH5, HEMDF, LDH3, DDI2, BMP3M, ESR, FOLT3, URIC3, FEIBC, FERR3, B12, FT4M #### [facility] [address] [place] [address] #### HVAAO, ANA3, HEPAN, B2GPG, B2GPM, B2GPA #### [address] #### LUPUS #### The performing lab is in the report. Lymphocytes/100 WBC (Bld) 22.3 % Normal 20.0-40.0 [facility] Comment on above: Performed By: #### A PTT, TSH5, HEMDF, LDH3, DDI2, BMP3M, ESR, FOLT3, URIC3, FEIBC, FERR3, B12, FT4M #### [facility] [address] [place] [address] #### HVAAO, ANA3, HEPAN, B2GPG, B2GPM, B2GPA #### [address] #### LUPUS #### The performing lab is in the report. MCH (RBC) [Entitic mass] 30.3 pg Normal 26.0-34.0 [facility] Comment on above: Performed By: #### A PTT, TSH5, HEMDF, LDH3, DDI2, BMP3M, ESR, FOLT3, URIC3, FEIBC, FERR3, B12, FT4M #### [facility] [address] [place] [address] #### HVAAO, ANA3, HEPAN, B2GPG, B2GPM, B2GPA #### [address] #### LUPUS #### The performing lab is in the report. MCHC 32.9 % Normal 32.0-36.0 [facility] Comment on above: Performed By: #### A PTT, TSH5, HEMDF, LDH3, DDI2, BMP3M, ESR, FOLT3, URIC3, FEIBC, FERR3, B12, FT4M #### [facility] [address] [place] [address] #### HVAAO, ANA3, HEPAN, B2GPG, B2GPM, B2GPA #### [address] #### LUPUS #### The performing lab is in the report. MCV (RBC) [Entitic vol] 92.0 fL Normal 79.0-98.0 [facility] Comment on above: Performed By: #### A PTT, TSH5, HEMDF, LDH3, DDI2, BMP3M, ESR, FOLT3, URIC3, FEIBC, FERR3, B12, FT4M #### [place] [address] [place] [id number] #### HVAAO, ANA3, HEPAN, B2GPG, B2GPM, B2GPA #### [address] #### LUPUS #### The performing lab is in the report. Monocytes (Bld) [#/Vol] 0.9 10*3/uL High 0.0-0.8 [facility] Comment on above: Performed By: #### A PTT, TSH5, HEMDF, LDH3, DDI2, BMP3M, ESR, FOLT3, URIC3, FEIBC, FERR3, B12, FT4M #### [place] [address] [facility] [place] [place] #### HVAAO, ANA3, HEPAN, B2GPG, B2GPM, B2GPA #### [address] #### LUPUS #### The performing lab is in the report. Monocytes/100 WBC (Bld) 8.2 % Normal 2.0-10.0 [facility] Comment on above: Performed By: #### A PTT, TSH5, HEMDF, LDH3, DDI2, BMP3M, ESR, FOLT3, URIC3, FEIBC, FERR3, B12, FT4M #### [address] [place] [place] [address] #### HVAAO, ANA3, HEPAN, B2GPG, B2GPM, B2GPA #### [address] #### LUPUS #### The performing lab is in the report. Platelet mean volume (Bld) [Entitic vol] 9.0 fL Normal 7.4-10.4 [facility] Comment on above: Performed By: #### A PTT, TSH5, HEMDF, LDH3, DDI2, BMP3M, ESR, FOLT3, URIC3, FEIBC, FERR3, B12, FT4M #### [address] [place] #### HVAAO, ANA3, HEPAN, B2GPG, B2GPM, B2GPA #### [address] #### LUPUS #### The performing lab is in the report. Platelets (Bld) [#/Vol] 208 10*3/uL Normal 140-440 [facility] Comment on above: Performed By: #### A PTT, TSH5, HEMDF, LDH3, DDI2, BMP3M, ESR, FOLT3, URIC3, FEIBC, FERR3, B12, FT4M #### [address] [place] [place] [address] #### HVAAO, ANA3, HEPAN, B2GPG, B2GPM, B2GPA #### [address] #### LUPUS #### The performing lab is in the report. RBC (Bld) [#/Vol] 4.37 10*6/uL Normal 3.80-5.20 [facility] Comment on above: Performed By: #### A PTT, TSH5, HEMDF, LDH3, DDI2, BMP3M, ESR, FOLT3, URIC3, FEIBC, FERR3, B12, FT4M #### [place] [address] [place] [address] #### HVAAO, ANA3, HEPAN, B2GPG, B2GPM, B2GPA #### [address] #### LUPUS #### The performing lab is in the report. WBC (Bld) [#/Vol] 11.2 10*3/uL High 3.6-10.7 [facility] Comment on above: Performed By: #### A PTT, TSH5, HEMDF, LDH3, DDI2, BMP3M, ESR, FOLT3, URIC3, FEIBC, FERR3, B12, FT4M #### [place] [address] [place] [address] #### HVAAO, ANA3, HEPAN, B2GPG, B2GPM, B2GPA #### [address] #### LUPUS #### The performing lab is in the report. APTTon 11-03-2021 aPTT Coag (Bld) [Time] 42.0 s High 20.0-30.5 [facility] Comment on above: Result Comment: NOTE : The therapeutic time for Heparin anticoagulation, based on Xa activity inhibition, is an APTT of 46-80 seconds. Performed By: #### A PTT, TSH5, HEMDF, LDH3, DDI2, BMP3M, ESR, FOLT3, URIC3, FEIBC, FERR3, B12, FT4M #### [place] [address] [place] [address] #### HVAAO, ANA3, HEPAN, B2GPG, B2GPM, B2GPA #### [address] #### LUPUS #### The performing lab is in the report. aPTT Coag (Bld) [Time] 51.5 s High 20.0-30.5 [facility] Comment on above: Result Comment: NOTE : The therapeutic time for Heparin anticoagulation, based on Xa activity inhibition, is an APTT of 46-80 seconds. Performed By: #### A PTT, TSH5, HEMDF, LDH3, DDI2, BMP3M, ESR, FOLT3, URIC3, FEIBC, FERR3, B12, FT4M #### [facility] [address] [place] [address] #### HVAAO, ANA3, HEPAN, B2GPG, B2GPM, B2GPA #### [address] [id number] #### LUPUS #### The performing lab is in the report. aPTT Coag (Bld) [Time] 106.9 s High 20.0-30.5 [facility] Comment on above: Result Comment: NOTE : The therapeutic time for Heparin anticoagulation, based on Xa activity inhibition, is an APTT of 46-80 seconds. Performed By: #### A PTT, TSH5, HEMDF, LDH3, DDI2, BMP3M, ESR, FOLT3, URIC3, FEIBC, FERR3, B12, FT4M #### [facility] [address] [place] [address] #### HVAAO, ANA3, HEPAN, B2GPG, B2GPM, B2GPA #### [address] [id number] #### LUPUS #### The performing lab is in the report. CT Head or Brain w/o Contras ton 11-03-2021 CT Head or Brain w/o Contrast [id number] Tom[facility] ACCESSION EXAM DATE/TIME PROCEDURE ORDERING PROVIDER [id number] 11/03/2021 15:[address] Head or Brain w/o MD CANDY, [facility]CO Contrast CPT code 61647 Reason For Exam (CT Head or Brain w/o Contrast) Confusion, on hep gtt Report CT HEAD WITHOUT CONTRAST CLINICAL INDICATION: Confusion Axial CT images of the brain were obtained without intravenous contrast. Coronal and sagittal reformatted images were also made available for interpretation. COMPARISON: 11/02/2021. FINDINGS: There is moderate diffuse cortical volume loss. Nonspecific periventricular and subcortical white matter hypodensities likely reflect areas of small vessel ischemic change in a patient of this age. No high attenuation material is seen to suggest hemorrhage. There is no definite evidence for acute cortical infarction. No midline shift or mass effect is noted. No fracture is identified on the bone windows. The paranasal sinuses are clear. Atherosclerotic calcification of the carotid siphons is noted. IMPRESSION: No evidence of intracranial hemorrhage or definite acute cortical infarction. There is moderate volume loss. Periventricular and subcortical leukomalacia likely reflects areas of small vessel ischemic change. Report Dictated on Final Dictating Physician: MD KATE JONATHAN R Signed Date and Time: 11/03/2021 3:30 pm Signed by: MD KATE JONATHAN R Transcribed Date and Time: 11/03/2021 3:31 Normal [facility] Comp Panel with Mg Reflexon 11-03-2021 Calcium [Mass/Vol] 8.9 mg/dL Normal 8.4-10.4 [facility] Comment on above: Performed By: #### A PTT, TSH5, HEMDF, LDH3, DDI2, BMP3M, ESR, FOLT3, URIC3, FEIBC, FERR3, B12, FT4M #### [facility] [address] [place] [address] #### HVAAO, ANA3, HEPAN, B2GPG, B2GPM, B2GPA #### [address] #### LUPUS #### The performing lab is in the report. ALP [Catalytic activity/Vol] 113 U/L Normal 38-126 [facility] Comment on above: Performed By: #### A PTT, TSH5, HEMDF, LDH3, DDI2, BMP3M, ESR, FOLT3, URIC3, FEIBC, FERR3, B12, FT4M #### [facility] [address] [place] [address] #### HVAAO, ANA3, HEPAN, B2GPG, B2GPM, B2GPA #### [address] #### LUPUS #### The performing lab is in the report. ALT [Catalytic activity/Vol] 15 U/L Normal 0-34 [facility] Comment on above: Result Comment: The ALT test is performed by an updated assay method. Please note that the reference intervals have been changed and are now sex specific. Performed By: #### A PTT, TSH5, HEMDF, LDH3, DDI2, BMP3M, ESR, FOLT3, URIC3, FEIBC, FERR3, B12, FT4M #### [facility] [address] [place] [address] #### HVAAO, ANA3, HEPAN, B2GPG, B2GPM, B2GPA #### [address] #### LUPUS #### The performing lab is in the report. Anion gap [Moles/Vol] 9 mmol/L Normal 3-13 [facility] Comment on above: Performed By: #### A PTT, TSH5, HEMDF, LDH3, DDI2, BMP3M, ESR, FOLT3, URIC3, FEIBC, FERR3, B12, FT4M #### [facility] [address] [place] [address] #### HVAAO, ANA3, HEPAN, B2GPG, B2GPM, B2GPA #### [address] #### LUPUS #### The performing lab is in the report. AST [Catalytic activity/Vol] 26 U/L Normal 15-46 [facility] Comment on above: Performed By: #### A PTT, TSH5, HEMDF, LDH3, DDI2, BMP3M, ESR, FOLT3, URIC3, FEIBC, FERR3, B12, FT4M #### [facility] [address] [place] [address] #### HVAAO, ANA3, HEPAN, B2GPG, B2GPM, B2GPA #### [address] #### LUPUS #### The performing lab is in the report. Bilirubin [Mass/Vol] 0.8 mg/dL Normal 0.2-1.3 [facility] Comment on above: Performed By: #### A PTT, TSH5, HEMDF, LDH3, DDI2, BMP3M, ESR, FOLT3, URIC3, FEIBC, FERR3, B12, FT4M #### [place] [address] [place] [address] #### HVAAO, ANA3, HEPAN, B2GPG, B2GPM, B2GPA #### [address] #### LUPUS #### The performing lab is in the report. CO2 [Moles/Vol] 23 mmol/L Normal 22-30 [facility] Comment on above: Performed By: #### A PTT, TSH5, HEMDF, LDH3, DDI2, BMP3M, ESR, FOLT3, URIC3, FEIBC, FERR3, B12, FT4M #### [address] [place] [address] #### HVAAO, ANA3, HEPAN, B2GPG, B2GPM, B2GPA #### [address] #### LUPUS #### The performing lab is in the report. Glucose [Mass/Vol] 112 mg/dL High 70-100 [facility] Comment on above: Performed By: #### A PTT, TSH5, HEMDF, LDH3, DDI2, BMP3M, ESR, FOLT3, URIC3, FEIBC, FERR3, B12, FT4M #### [address] [place] [address] #### HVAAO, ANA3, HEPAN, B2GPG, B2GPM, B2GPA #### [address] #### LUPUS #### The performing lab is in the report. Protein [Mass/Vol] 7.2 g/dL Normal 6.3-8.2 [facility] Comment on above: Performed By: #### A PTT, TSH5, HEMDF, LDH3, DDI2, BMP3M, ESR, FOLT3, URIC3, FEIBC, FERR3, B12, FT4M #### [place] [address] [place] [address] #### HVAAO, ANA3, HEPAN, B2GPG, B2GPM, B2GPA #### [address] #### LUPUS #### The performing lab is in the report. Urea nitrogen [Mass/Vol] 22 mg/dL High 9-20 [facility] Comment on above: Performed By: #### A PTT, TSH5, HEMDF, LDH3, DDI2, BMP3M, ESR, FOLT3, URIC3, FEIBC, FERR3, B12, FT4M #### [address] [place] #### HVAAO, ANA3, HEPAN, B2GPG, B2GPM, B2GPA #### [address] #### LUPUS #### The performing lab is in the report. Creatinine [Mass/Vol] 1.13 mg/dL Normal 0.52-1.25 [facility] Comment on above: Performed By: #### A PTT, TSH5, HEMDF, LDH3, DDI2, BMP3M, ESR, FOLT3, URIC3, FEIBC, FERR3, B12, FT4M #### [address] [place] [place] [address] #### HVAAO, ANA3, HEPAN, B2GPG, B2GPM, B2GPA #### [address] #### LUPUS #### The performing lab is in the report. GFR/1.73 sq M.predicted among blacks MDRD (S/P/Bld) [Vol rate/Area] 53.7 mL/min/{1.73_m2} Abnormal >60 [facility] Comment on above: Performed By: #### A PTT, TSH5, HEMDF, LDH3, DDI2, BMP3M, ESR, FOLT3, URIC3, FEIBC, FERR3, B12, FT4M #### [facility] [address] [place] [address] #### HVAAO, ANA3, HEPAN, B2GPG, B2GPM, B2GPA #### [facility] [address] [place] [address] #### LUPUS #### The performing lab is in the report. GFR/1.73 sq M.predicted among non-blacks MDRD (S/P/Bld) [Vol rate/Area] 46.3 mL/min/{1.73_m2} Abnormal >60 [facility] Comment on above: Result Comment: KDIG O guidelines provide the following GFR categories: Stage GFR(ml/min/1.73 m2) Terms G1 >=90 Normal or high G2 60-89 Mildly decreased* G3a 45-59 Mildly to moderately decreased G3b 30-44 Moderately to severely decreased G4 15-29 Severely decreased G5 <15 Kidney failure *Relative to young adult level. In the absence of evidence of kidney damage, neither GFR category G1 nor G2 fulfill the criteria for CKD. The CKD-EPI equation is validated in individuals 18 years of age and older. Currently the best equation for estimating glomerular filtration rate (GFR) from serum creatinine in children is the Bedside Kerr equation. It is less accurate in patients with extremes of muscle mass, restriction of dietary protein, ingestion of creatine, extra-renal metabolism of creatinine, or treatment with medications that affect renal tubular creatinine secretion. Performed By: #### A PTT, TSH5, HEMDF, LDH3, DDI2, BMP3M, ESR, FOLT3, URIC3, FEIBC, FERR3, B12, FT4M #### [facility] [address] [place] [address] #### HVAAO, ANA3, HEPAN, B2GPG, B2GPM, B2GPA #### [facility] [address] [place] [address] #### LUPUS #### The performing lab is in the report. Albumin [Mass/Vol] 3.8 g/dL Normal 3.5-5.0 [facility] Comment on above: Performed By: #### A PTT, TSH5, HEMDF, LDH3, DDI2, BMP3M, ESR, FOLT3, URIC3, FEIBC, FERR3, B12, FT4M #### [place] [address] [place] [address] #### HVAAO, ANA3, HEPAN, B2GPG, B2GPM, B2GPA #### [address] #### LUPUS #### The performing lab is in the report. Chloride [Moles/Vol] 104 mmol/L Normal 98-107 [facility] Comment on above: Performed By: #### A PTT, TSH5, HEMDF, LDH3, DDI2, BMP3M, ESR, FOLT3, URIC3, FEIBC, FERR3, B12, FT4M #### [address] [place] #### HVAAO, ANA3, HEPAN, B2GPG, B2GPM, B2GPA #### [address] #### LUPUS #### The performing lab is in the report. Potassium [Moles/Vol] 3.2 mmol/L Low 3.5-5.1 [facility] Comment on above: Performed By: #### A PTT, TSH5, HEMDF, LDH3, DDI2, BMP3M, ESR, FOLT3, URIC3, FEIBC, FERR3, B12, FT4M #### [address] [place] [place] [address] #### HVAAO, ANA3, HEPAN, B2GPG, B2GPM, B2GPA #### [address] #### LUPUS #### The performing lab is in the report. Sodium [Moles/Vol] 136 mmol/L Normal 135-145 [facility] Comment on above: Performed By: #### A PTT, TSH5, HEMDF, LDH3, DDI2, BMP3M, ESR, FOLT3, URIC3, FEIBC, FERR3, B12, FT4M #### [address] [place] [address] #### HVAAO, ANA3, HEPAN, B2GPG, B2GPM, B2GPA #### [address] #### LUPUS #### The performing lab is in the report. Glucose,Bedsideon 11-03-2021 Glucose [Mass/Vol] 117 mg/dL High 70-100 [facility] Comment on above: Result Comment: Test performed by glucose meter. Results may be 10%-15% lower than serum/plasma values. (CLIA ID [id number]) Performed By: #### A PTT, TSH5, HEMDF, LDH3, DDI2, BMP3M, ESR, FOLT3, URIC3, FEIBC, FERR3, B12, FT4M #### [address] [place] [address] #### HVAAO, ANA3, HEPAN, B2GPG, B2GPM, B2GPA #### [address] #### LUPUS #### The performing lab is in the report. Hemogramon 11-03-2021 Erythrocyte distribution width (RBC) [Ratio] 14.9 % High 11.5-14.5 [facility] Comment on above: Performed By: #### A PTT, TSH5, HEMDF, LDH3, DDI2, BMP3M, ESR, FOLT3, URIC3, FEIBC, FERR3, B12, FT4M #### [address] [place] [address] #### HVAAO, ANA3, HEPAN, B2GPG, B2GPM, B2GPA #### [address] #### LUPUS #### The performing lab is in the report. Hematocrit (Bld) [Volume fraction] 41.6 % Normal 35.0-47.0 [facility] Comment on above: Performed By: #### A PTT, TSH5, HEMDF, LDH3, DDI2, BMP3M, ESR, FOLT3, URIC3, FEIBC, FERR3, B12, FT4M #### [facility] [address] [place] [address] #### HVAAO, ANA3, HEPAN, B2GPG, B2GPM, B2GPA #### [address] #### LUPUS #### The performing lab is in the report. Hemoglobin (Bld) [Mass/Vol] 14.1 g/dL Normal 11.7-16.0 [facility] Comment on above: Performed By: #### A PTT, TSH5, HEMDF, LDH3, DDI2, BMP3M, ESR, FOLT3, URIC3, FEIBC, FERR3, B12, FT4M #### [address] [place] #### HVAAO, ANA3, HEPAN, B2GPG, B2GPM, B2GPA #### [address] #### LUPUS #### The performing lab is in the report. MCH (RBC) [Entitic mass] 30.7 pg Normal 26.0-34.0 [facility] Comment on above: Performed By: #### A PTT, TSH5, HEMDF, LDH3, DDI2, BMP3M, ESR, FOLT3, URIC3, FEIBC, FERR3, B12, FT4M #### [address] [place] #### HVAAO, ANA3, HEPAN, B2GPG, B2GPM, B2GPA #### [address] #### LUPUS #### The performing lab is in the report. MCHC 34.0 % Normal 32.0-36.0 [facility] Comment on above: Performed By: #### A PTT, TSH5, HEMDF, LDH3, DDI2, BMP3M, ESR, FOLT3, URIC3, FEIBC, FERR3, B12, FT4M #### [address] [place] [address] #### HVAAO, ANA3, HEPAN, B2GPG, B2GPM, B2GPA #### [address] #### LUPUS #### The performing lab is in the report. MCV (RBC) [Entitic vol] 90.3 fL Normal 79.0-98.0 [facility] Comment on above: Performed By: #### A PTT, TSH5, HEMDF, LDH3, DDI2, BMP3M, ESR, FOLT3, URIC3, FEIBC, FERR3, B12, FT4M #### [address] [place] [address] #### HVAAO, ANA3, HEPAN, B2GPG, B2GPM, B2GPA #### [address] #### LUPUS #### The performing lab is in the report. Platelet mean volume (Bld) [Entitic vol] 8.8 fL Normal 7.4-10.4 [facility] Comment on above: Performed By: #### A PTT, TSH5, HEMDF, LDH3, DDI2, BMP3M, ESR, FOLT3, URIC3, FEIBC, FERR3, B12, FT4M #### [address] [place] [place] #### HVAAO, ANA3, HEPAN, B2GPG, B2GPM, B2GPA #### [address] #### LUPUS #### The performing lab is in the report. Platelets (Bld) [#/Vol] 185 10*3/uL Normal 140-440 [facility] Comment on above: Performed By: #### A PTT, TSH5, HEMDF, LDH3, DDI2, BMP3M, ESR, FOLT3, URIC3, FEIBC, FERR3, B12, FT4M #### [address] [place] [address] #### HVAAO, ANA3, HEPAN, B2GPG, B2GPM, B2GPA #### [address] #### LUPUS #### The performing lab is in the report. RBC (Bld) [#/Vol] 4.61 10*6/uL Normal 3.80-5.20 [facility] Comment on above: Performed By: #### A PTT, TSH5, HEMDF, LDH3, DDI2, BMP3M, ESR, FOLT3, URIC3, FEIBC, FERR3, B12, FT4M #### [facility] [address] [place] [address] #### HVAAO, ANA3, HEPAN, B2GPG, B2GPM, B2GPA #### [address] #### LUPUS #### The performing lab is in the report. WBC (Bld) [#/Vol] 9.3 10*3/uL Normal 3.6-10.7 [facility] Comment on above: Performed By: #### A PTT, TSH5, HEMDF, LDH3, DDI2, BMP3M, ESR, FOLT3, URIC3, FEIBC, FERR3, B12, FT4M #### [address] [place] [address] #### HVAAO, ANA3, HEPAN, B2GPG, B2GPM, B2GPA #### [address] [id number] #### LUPUS #### The performing lab is in the report. Hemogram w/ Autodiffon 11-03 Abs Baso Cnt 0.0 10*3/uL Normal 0.0-0.2 [facility] Comment on above: Performed By: #### A PTT, TSH5, HEMDF, LDH3, DDI2, BMP3M, ESR, FOLT3, URIC3, FEIBC, FERR3, B12, FT4M #### [place] [address] [place] [address] #### HVAAO, ANA3, HEPAN, B2GPG, B2GPM, B2GPA #### [address] [phone] #### LUPUS #### The performing lab is in the report. Abs Neutrophile Cnt 6.5 10*3/uL Normal 1.8-7.0 [facility] Comment on above: Performed By: #### A PTT, TSH5, HEMDF, LDH3, DDI2, BMP3M, ESR, FOLT3, URIC3, FEIBC, FERR3, B12, FT4M #### [facility] [address] [place] [address] #### HVAAO, ANA3, HEPAN, B2GPG, B2GPM, B2GPA #### [address] #### LUPUS #### The performing lab is in the report. Basophils/100 WBC (Bld) 0.4 % Normal 0.0-2.0 [facility] Comment on above: Performed By: #### A PTT, TSH5, HEMDF, LDH3, DDI2, BMP3M, ESR, FOLT3, URIC3, FEIBC, FERR3, B12, FT4M #### [facility] [address] [place] [address] #### HVAAO, ANA3, HEPAN, B2GPG, B2GPM, B2GPA #### [address] #### LUPUS #### The performing lab is in the report. Eosinophils (Bld) [#/Vol] 0.4 10*3/uL Normal 0.0-0.5 [facility] Comment on above: Performed By: #### A PTT, TSH5, HEMDF, LDH3, DDI2, BMP3M, ESR, FOLT3, URIC3, FEIBC, FERR3, B12, FT4M #### [facility] [address] [address] #### HVAAO, ANA3, HEPAN, B2GPG, B2GPM, B2GPA #### [address] #### LUPUS #### The performing lab is in the report. Eosinophils/100 WBC (Bld) 4.0 % Normal 1.0-6.0 [facility] Comment on above: Performed By: #### A PTT, TSH5, HEMDF, LDH3, DDI2, BMP3M, ESR, FOLT3, URIC3, FEIBC, FERR3, B12, FT4M #### [facility] [address] [place] [address] #### HVAAO, ANA3, HEPAN, B2GPG, B2GPM, B2GPA #### [address] #### LUPUS #### The performing lab is in the report. Erythrocyte distribution width (RBC) [Ratio] 14.9 % High 11.5-14.5 [facility] Comment on above: Performed By: #### A PTT, TSH5, HEMDF, LDH3, DDI2, BMP3M, ESR, FOLT3, URIC3, FEIBC, FERR3, B12, FT4M #### [facility] [address] [place] [address] #### HVAAO, ANA3, HEPAN, B2GPG, B2GPM, B2GPA #### [address] #### LUPUS #### The performing lab is in the report. Granulocytes/100 WBC (Bld) 65.5 % Normal 40.0-80.0 [facility] Comment on above: Performed By: #### A PTT, TSH5, HEMDF, LDH3, DDI2, BMP3M, ESR, FOLT3, URIC3, FEIBC, FERR3, B12, FT4M #### [facility] [address] [place] [address] #### HVAAO, ANA3, HEPAN, B2GPG, B2GPM, B2GPA #### [address] #### LUPUS #### The performing lab is in the report. Hematocrit (Bld) [Volume fraction] 43.4 % Normal 35.0-47.0 [facility] Comment on above: Performed By: #### A PTT, TSH5, HEMDF, LDH3, DDI2, BMP3M, ESR, FOLT3, URIC3, FEIBC, FERR3, B12, FT4M #### [facility] [address] [place] [address] #### HVAAO, ANA3, HEPAN, B2GPG, B2GPM, B2GPA #### [address] #### LUPUS #### The performing lab is in the report. Hemoglobin (Bld) [Mass/Vol] 14.6 g/dL Normal 11.7-16.0 [facility] Comment on above: Performed By: #### A PTT, TSH5, HEMDF, LDH3, DDI2, BMP3M, ESR, FOLT3, URIC3, FEIBC, FERR3, B12, FT4M #### [address] [place] [address] #### HVAAO, ANA3, HEPAN, B2GPG, B2GPM, B2GPA #### [address] #### LUPUS #### The performing lab is in the report. Lymphocytes (Bld) [#/Vol] 2.2 10*3/uL Normal 1.0-4.3 [facility] Comment on above: Performed By: #### A PTT, TSH5, HEMDF, LDH3, DDI2, BMP3M, ESR, FOLT3, URIC3, FEIBC, FERR3, B12, FT4M #### [place] [address] [place] [address] #### HVAAO, ANA3, HEPAN, B2GPG, B2GPM, B2GPA #### [address] #### LUPUS #### The performing lab is in the report. Lymphocytes/100 WBC (Bld) 22.4 % Normal 20.0-40.0 [facility] Comment on above: Performed By: #### A PTT, TSH5, HEMDF, LDH3, DDI2, BMP3M, ESR, FOLT3, URIC3, FEIBC, FERR3, B12, FT4M #### [facility] [address] [place] [address] #### HVAAO, ANA3, HEPAN, B2GPG, B2GPM, B2GPA #### [address] #### LUPUS #### The performing lab is in the report. MCH (RBC) [Entitic mass] 30.8 pg Normal 26.0-34.0 [facility] Comment on above: Performed By: #### A PTT, TSH5, HEMDF, LDH3, DDI2, BMP3M, ESR, FOLT3, URIC3, FEIBC, FERR3, B12, FT4M #### [place] [address] [place] [address] #### HVAAO, ANA3, HEPAN, B2GPG, B2GPM, B2GPA #### [address] #### LUPUS #### The performing lab is in the report. MCHC 33.6 % Normal 32.0-36.0 [facility] Comment on above: Performed By: #### A PTT, TSH5, HEMDF, LDH3, DDI2, BMP3M, ESR, FOLT3, URIC3, FEIBC, FERR3, B12, FT4M #### [address] [place] [address] #### HVAAO, ANA3, HEPAN, B2GPG, B2GPM, B2GPA #### [address] #### LUPUS #### The performing lab is in the report. MCV (RBC) [Entitic vol] 91.5 fL Normal 79.0-98.0 [facility] Comment on above: Performed By: #### A PTT, TSH5, HEMDF, LDH3, DDI2, BMP3M, ESR, FOLT3, URIC3, FEIBC, FERR3, B12, FT4M #### [address] [place] [address] #### HVAAO, ANA3, HEPAN, B2GPG, B2GPM, B2GPA #### [address] #### LUPUS #### The performing lab is in the report. Monocytes (Bld) [#/Vol] 0.8 10*3/uL Normal 0.0-0.8 [facility] Comment on above: Performed By: #### A PTT, TSH5, HEMDF, LDH3, DDI2, BMP3M, ESR, FOLT3, URIC3, FEIBC, FERR3, B12, FT4M #### [address] [facility] [place] [place] #### HVAAO, ANA3, HEPAN, B2GPG, B2GPM, B2GPA #### [address] #### LUPUS #### The performing lab is in the report. Monocytes/100 WBC (Bld) 7.7 % Normal 2.0-10.0 [facility] Comment on above: Performed By: #### A PTT, TSH5, HEMDF, LDH3, DDI2, BMP3M, ESR, FOLT3, URIC3, FEIBC, FERR3, B12, FT4M #### [address] [place], [place] #### HVAAO, ANA3, HEPAN, B2GPG, B2GPM, B2GPA #### [address] #### LUPUS #### The performing lab is in the report. Platelet mean volume (Bld) [Entitic vol] 9.2 fL Normal 7.4-10.4 [facility] Comment on above: Performed By: #### A PTT, TSH5, HEMDF, LDH3, DDI2, BMP3M, ESR, FOLT3, URIC3, FEIBC, FERR3, B12, FT4M #### [place] [address] [place] [address] #### HVAAO, ANA3, HEPAN, B2GPG, B2GPM, B2GPA #### [address] #### LUPUS #### The performing lab is in the report. Platelets (Bld) [#/Vol] 208 10*3/uL Normal 140-440 [facility] Comment on above: Performed By: #### A PTT, TSH5, HEMDF, LDH3, DDI2, BMP3M, ESR, FOLT3, URIC3, FEIBC, FERR3, B12, FT4M #### [address] [place] [id number] #### HVAAO, ANA3, HEPAN, B2GPG, B2GPM, B2GPA #### [address] #### LUPUS #### The performing lab is in the report. RBC (Bld) [#/Vol] 4.74 10*6/uL Normal 3.80-5.20 [facility] Comment on above: Performed By: #### A PTT, TSH5, HEMDF, LDH3, DDI2, BMP3M, ESR, FOLT3, URIC3, FEIBC, FERR3, B12, FT4M #### [address] [place] [id number] #### HVAAO, ANA3, HEPAN, B2GPG, B2GPM, B2GPA #### [address] #### LUPUS #### The performing lab is in the report. WBC (Bld) [#/Vol] 10.0 10*3/uL Normal 3.6-10.7 [facility] Comment on above: Performed By: #### A PTT, TSH5, HEMDF, LDH3, DDI2, BMP3M, ESR, FOLT3, URIC3, FEIBC, FERR3, B12, FT4M #### [place] [address] [place] [address] #### HVAAO, ANA3, HEPAN, B2GPG, B2GPM, B2GPA #### [address] #### LUPUS #### The performing lab is in the report. Magnesiumon 11-03-2021 Magnesium [Mass/Vol] 2.1 mg/dL Normal 1.6-2.3 [facility] Comment on above: Performed By: #### A PTT, TSH5, HEMDF, LDH3, DDI2, BMP3M, ESR, FOLT3, URIC3, FEIBC, FERR3, B12, FT4M #### [facility] [address] [place] [address] #### HVAAO, ANA3, HEPAN, B2GPG, B2GPM, B2GPA #### [address] #### LUPUS #### The performing lab is in the report. APTTon 11-02-2021 aPTT Coag (Bld) [Time] 22.5 s Normal 20.0-30.5 [facility] Comment on above: Result Comment: NOTE : The therapeutic time for Heparin anticoagulation, based on Xa activity inhibition, is an APTT of 46-80 seconds. Performed By: #### A PTT, TSH5, HEMDF, LDH3, DDI2, BMP3M, ESR, FOLT3, URIC3, FEIBC, FERR3, B12, FT4M #### [facility] [address] [place] [address] #### HVAAO, ANA3, HEPAN, B2GPG, B2GPM, B2GPA #### [address] #### LUPUS #### The performing lab is in the report. Add on test from HISon 11-02 Add on test from HIS Accepted Normal [facility] Comment on above: Result Comment: Spec imen available & acceptable for analysis. Performed By: #### A PTT, TSH5, HEMDF, LDH3, DDI2, BMP3M, ESR, FOLT3, URIC3, FEIBC, FERR3, B12, FT4M #### [place] [address] [place] [address] #### HVAAO, ANA3, HEPAN, B2GPG, B2GPM, B2GPA #### [address] #### LUPUS #### The performing lab is in the report. Basic Metabolic Panelon 10-23 Calcium [Mass/Vol] 9.4 mg/dL Normal 8.4-10.4 [facility] Comment on above: Performed By: #### A PTT, TSH5, HEMDF, LDH3, DDI2, BMP3M, ESR, FOLT3, URIC3, FEIBC, FERR3, B12, FT4M #### [address] [place] [place] [address] #### HVAAO, ANA3, HEPAN, B2GPG, B2GPM, B2GPA #### [address] #### LUPUS #### The performing lab is in the report. Anion gap [Moles/Vol] 7 mmol/L Normal 3-13 [facility] Comment on above: Performed By: #### A PTT, TSH5, HEMDF, LDH3, DDI2, BMP3M, ESR, FOLT3, URIC3, FEIBC, FERR3, B12, FT4M #### [address] [place] [place] [address] #### HVAAO, ANA3, HEPAN, B2GPG, B2GPM, B2GPA #### [address] #### LUPUS #### The performing lab is in the report. CO2 [Moles/Vol] 30 mmol/L Normal 22-30 [facility] Comment on above: Performed By: #### A PTT, TSH5, HEMDF, LDH3, DDI2, BMP3M, ESR, FOLT3, URIC3, FEIBC, FERR3, B12, FT4M #### [address] [place] [address] #### HVAAO, ANA3, HEPAN, B2GPG, B2GPM, B2GPA #### [address] #### LUPUS #### The performing lab is in the report. Creatinine [Mass/Vol] 0.99 mg/dL Normal 0.52-1.25 [facility] Comment on above: Performed By: #### A PTT, TSH5, HEMDF, LDH3, DDI2, BMP3M, ESR, FOLT3, URIC3, FEIBC, FERR3, B12, FT4M #### [facility] [address] [place] [address] #### HVAAO, ANA3, HEPAN, B2GPG, B2GPM, B2GPA #### [address] #### LUPUS #### The performing lab is in the report. GFR/1.73 sq M.predicted among blacks MDRD (S/P/Bld) [Vol rate/Area] 63.0 mL/min/{1.73_m2} Normal >60 [facility] Comment on above: Performed By: #### A PTT, TSH5, HEMDF, LDH3, DDI2, BMP3M, ESR, FOLT3, URIC3, FEIBC, FERR3, B12, FT4M #### [place] [address] [place] [address] #### HVAAO, ANA3, HEPAN, B2GPG, B2GPM, B2GPA #### [address] #### LUPUS #### The performing lab is in the report. GFR/1.73 sq M.predicted among non-blacks MDRD (S/P/Bld) [Vol rate/Area] 54.4 mL/min/{1.73_m2} Abnormal >60 [facility] Comment on above: Result Comment: KDIG O guidelines provide the following GFR categories: Stage GFR(ml/min/1.73 m2) Terms G1 >=90 Normal or high G2 60-89 Mildly decreased* G3a 45-59 Mildly to moderately decreased G3b 30-44 Moderately to severely decreased G4 15-29 Severely decreased G5 <15 Kidney failure *Relative to young adult level. In the absence of evidence of kidney damage, neither GFR category G1 nor G2 fulfill the criteria for CKD. The CKD-EPI equation is validated in individuals 18 years of age and older. Currently the best equation for estimating glomerular filtration rate (GFR) from serum creatinine in children is the Bedside Kerr equation. It is less accurate in patients with extremes of muscle mass, restriction of dietary protein, ingestion of creatine, extra-renal metabolism of creatinine, or treatment with medications that affect renal tubular creatinine secretion. Performed By: #### A PTT, TSH5, HEMDF, LDH3, DDI2, BMP3M, ESR, FOLT3, URIC3, FEIBC, FERR3, B12, FT4M #### [facility] [address] [place] [address] #### HVAAO, ANA3, HEPAN, B2GPG, B2GPM, B2GPA #### [address] #### LUPUS #### The performing lab is in the report. Glucose [Mass/Vol] 116 mg/dL High 70-100 [facility] Comment on above: Performed By: #### A PTT, TSH5, HEMDF, LDH3, DDI2, BMP3M, ESR, FOLT3, URIC3, FEIBC, FERR3, B12, FT4M #### [facility] [address] [place] [address] #### HVAAO, ANA3, HEPAN, B2GPG, B2GPM, B2GPA #### [address] #### LUPUS #### The performing lab is in the report. Urea nitrogen [Mass/Vol] 22 mg/dL High 9-20 [facility] Comment on above: Performed By: #### A PTT, TSH5, HEMDF, LDH3, DDI2, BMP3M, ESR, FOLT3, URIC3, FEIBC, FERR3, B12, FT4M #### [facility] [address] [place] [address] #### HVAAO, ANA3, HEPAN, B2GPG, B2GPM, B2GPA #### [address] #### LUPUS #### The performing lab is in the report. Chloride [Moles/Vol] 101 mmol/L Normal 98-107 [facility] Comment on above: Performed By: #### A PTT, TSH5, HEMDF, LDH3, DDI2, BMP3M, ESR, FOLT3, URIC3, FEIBC, FERR3, B12, FT4M #### [facility] [address] [place] #### HVAAO, ANA3, HEPAN, B2GPG, B2GPM, B2GPA #### [address] #### LUPUS #### The performing lab is in the report. Potassium [Moles/Vol] 3.2 mmol/L Low 3.5-5.1 [facility] Comment on above: Performed By: #### A PTT, TSH5, HEMDF, LDH3, DDI2, BMP3M, ESR, FOLT3, URIC3, FEIBC, FERR3, B12, FT4M #### [facility] [address] [place] #### HVAAO, ANA3, HEPAN, B2GPG, B2GPM, B2GPA #### [address] #### LUPUS #### The performing lab is in the report. Sodium [Moles/Vol] 137 mmol/L Normal 135-145 [facility] Comment on above: Performed By: #### A PTT, TSH5, HEMDF, LDH3, DDI2, BMP3M, ESR, FOLT3, URIC3, FEIBC, FERR3, B12, FT4M #### [place] [address] [place], [place] #### HVAAO, ANA3, HEPAN, B2GPG, B2GPM, B2GPA #### [address] [id number] #### LUPUS #### The performing lab is in the report. CTA Chest w/ + w/o Contrasto n 11-02-2021 CTA Chest w/ + w/o Contrast Patient Name: CHAY TEAGUE Computed Tomography ACCESSION EXAM DATE/TIME PROCEDURE ORDERING PROVIDER [id number] 11/02/2021 17:43 EST CTA Chest w/ + w/o MD BERNARDINO, CAIN Contrast CPT code 18453 Q9967 Reason For Exam (CTA Chest w/ + w/o Contrast) LLE DVT, chest pain r/o PE Report Reasons for examination: Chest pain and DVT. CT scan of the chest were performed with bolus contrast and high resolution scans for CT pulmonary angiographic study, with images post-processed by myself on [facility] workstation, with 3D - volume rendered CT and MPR angiographic images reconstructed. The heart size is normal, and there are no pericardial or pleural effusions. There are no congestive changes in the pulmonary vasculature. The thoracic aorta is unremarkable except for calcified plaquing. CT pulmonary angiographic examination is a fair quality study due to patient obesity, which demonstrates no evidence of acute pulmonary embolism. The right side of the heart, pulmonary outflow tract, right and left main, lobar, and larger segmental pulmonary arteries all appear clear. Note that the technique is limited for detection of small, subsegmental, peripheral emboli, but none are seen. IMPRESSION: 1.Negative CT scan of the chest for evidence of acute pulmonary embolism. 2. Small areas of infiltrate or atelectasis or air-trapping dependent portion both lungs-patient had a CT of the chest on 11/02/2020 (ironically) which also showed these findings to slightly lesser degree 2. Prior surgery GE junction with small hiatal hernia, subcentimeter calcified splenic artery aneurysm Report Dictated on Final Dictating Physician: MD CAMP WILLIAM Signed Date and Time: 11/02/2021 5:55 pm Signed by: MD CAMP WILLIAM Transcribed Date and Time: 11/02/2021 5:56 Normal [facility] ED Provider Noteon ED Provider Note Emergency Department Encounter [facility] Patient: Chay Teague : 1945 Date of Evaluation: 11/02/2021 ED Supervising Physician: LUIS STERN MD This will serve as my Supervisory note and shared attestation. I did perform a substantive portion of the visit including all aspects of the Medical Decision Making. I independently examined and evaluated Chay Teague. In brief, Chay Teague is a 76 y.o. female that presents to the emergency department for left leg pain and swelling following a fall 1 year ago Focused exam: left leg diffusely swollen with red/purple discoloration. It is diffusely tender. No limitation of ROM of the joints of the LLE. The foot appears warm and well-perfused. Brief ED course/MDM: US identified extensive DVTs of the leg according to my discussion with the plugger man. Plan is to admit to medicine with vascular surgery on consult. They report that she is not a candidate for thrombectomy. All diagnostic, treatment, and disposition decisions were made by myself in conjunction with the DANETTE. For all further details of the patient's emergency department visit, please see their documentation. (Please note that portions of this note may have been completed with a voice recognition program. Efforts were made to edit the dictations but occasionally words are mis-transcribed.) LUIS STERN MD Acute Care [facility] Luis Stern MD 11/03/21 0736 [facility] ED Provider Note Emergency DepartmentEncounter [facility] ED Patient: Chay Teague : 1945 Date of Evaluation: 11/02/2021 ED DANETTE Provider: Sharri Morel PA-C EDcare was supervised by Dr. Stern who independently examined and evaluated the patient. Please see their attestation note for further details. I was wearing an N95 mask, surgical mask, and goggles. Chief Complaint Chief Complaint Patient presents with ? Leg Swelling ROWENA Teague is a 76 y.o. female who presents to the emergency department for evaluation of left lower extremity swelling. Patient lives at home, she does have nearly 24/7 around the care clock secondary to a past medical history of dementia. Patient's caregiver is at bedside with the patient today, she states that patient is at baseline. However when she arrived at the patient's house for the day she noticed that her left lower extremity was extremely swollen and slightly discolored in comparison to the right lower extremity. Caregiver states that she is well known to the patient, she has been helping care for the patient for approximately 3 years. She states that the patient does have some baseline edema to bilateral lower extremities, however there is never unilateral swelling or swelling to this extent. Patient is alert and oriented to herself, caregiver states that this is her baseline. Patient states that her left lower extremity is painful. She denies needing ability to ambulate the extremity. Pain is rated 10 out of 10. Unable to describe the nature of the pain. Aggravated with touching and manipulating the left lower extremity. No alleviating factors. Caregiver did give her Tylenol for pain control this morning. Patient herself denies numbness tingling and weakness of the left lower extremity. 1+ pitting edema noted to the right lower extremity. She denies chest pain or shortness of breath. Denies fevers and chills. Denies abdominal pain nausea vomiting diarrhea and urinary symptoms. No known history of DVT or PE. Patient and caregiver deny known use of anticoagulants or ASA. ROS: Review of Systems At least 10 systems reviewed and otherwise acutely negative except as in the [place]. Past History Past Medical History: Diagnosis Date ? Anxiety ? Asthma ? Dementia (HCC) ? Depression ? History of blood transfusion ? Hypertension ? Hypothyroidism Past Surgical History: Procedure Laterality Date ? GASTRIC FUNDOPLICATION 12/02/[address] COY BRARERA ? HERNIA REPAIR 12/02/2011 LAP HIATAL HERNIA WITH MESH DR COY BARRERA ? HYSTERECTOMY, TOTAL ABDOMINAL ? UPPER GASTROINTESTINAL ENDOSCOPY 06/15/2012 DR COY BARRERA ? UPPER GASTROINTESTINAL ENDOSCOPY 10/14/2011 DR COY BARRERA Social History Socioeconomic History ? Marital status: Spouse name: Not on file ? Number of children: Not on file ? Years of education: Not on file ? Highest education level: Not on file Occupational History ? Not on file Tobacco Use ? Smoking status: Former Smoker Types: Cigarettes Quit date: 1985 Years since quittin.1 ? Smokeless tobacco: Never Used Vaping Use ? Vaping Use: Never used Substance and Sexual Activity ? Alcohol use: No ? Drug use: No ? Sexual activity: Not on file Other Topics Concern ? Not on file Social History Narrative ? Not on file Social Determinants of Health Financial Resource Strain: ? Difficulty of Paying Living Expenses: Not on file Food Insecurity: ? Worried About Running Out of Food in the Last Year: Not on file ? Ran Out of Food in the Last Year: Not on file Transportation Needs: ? Lack of Transportation (Medical): Not on file ? Lack of Transportation (Non-Medical): Not on file Physical Activity: ? Days of Exercise per Week: Not on file ? Minutes of Exercise per Session: Not on file Stress: ? Feeling of Stress : Not on file Social Connections: ? Frequency of Communication with Friends and Family: Not on file ? Frequency of Social Gatherings with Friends and Family: Not on file ? Attends Muslim Services: Not on file ? Active Member of Clubs or Organizations: Not on file ? Attends Club or Organization Meetings: Not on file ? Marital Status: Not on file Intimate Partner Violence: ? Fear of Current or Ex-Partner: Not on file ? Emotionally Abused: Not on file ? Physically Abused: Not on file ? Sexually Abused: Not on file Housing Stability: ? Unable to Pay for Housing in the Last Year: Not on file ? Number of Places Lived in the Last Year: Not on file ? Unstable Housing in the Last Year: Not on file Medications/Allergies Previous Medications ACETAMINOPHEN (TYLENOL) 500 MG TABLET Take 500 mg by mouth every 6 hours as needed for Pain ALBUTEROL (PROVENTIL) (2.5 MG/3ML) 0.083% NEBULIZER SOLUTION INHALE 3ML VIA NEBULIZER EVERY 6 HOURS NEEDED FOR WHEEZING OR SHORTNESS OF BREATH ALBUTEROL (PROVENTIL) (2.5 MG/3M (more content not included)... Normal [facility] Hemogram w/ Autodiffon 11-02 Abs Baso Cnt 0.1 10*3/uL Normal 0.0-0.2 [facility] Comment on above: Performed By: #### A PTT, TSH5, HEMDF, LDH3, DDI2, BMP3M, ESR, FOLT3, URIC3, FEIBC, FERR3, B12, FT4M #### [facility] [address] [place] [address] #### HVAAO, ANA3, HEPAN, B2GPG, B2GPM, B2GPA #### [address] #### LUPUS #### The performing lab is in the report. Abs Neutrophile Cnt 6.8 10*3/uL Normal 1.8-7.0 [facility] Comment on above: Performed By: #### A PTT, TSH5, HEMDF, LDH3, DDI2, BMP3M, ESR, FOLT3, URIC3, FEIBC, FERR3, B12, FT4M #### [facility] [address] [place] [address] #### HVAAO, ANA3, HEPAN, B2GPG, B2GPM, B2GPA #### [address] #### LUPUS #### The performing lab is in the report. Basophils/100 WBC (Bld) 0.8 % Normal 0.0-2.0 [facility] Comment on above: Performed By: #### A PTT, TSH5, HEMDF, LDH3, DDI2, BMP3M, ESR, FOLT3, URIC3, FEIBC, FERR3, B12, FT4M #### [facility] [address] [address] #### HVAAO, ANA3, HEPAN, B2GPG, B2GPM, B2GPA #### [address] #### LUPUS #### The performing lab is in the report. Eosinophils (Bld) [#/Vol] 0.3 10*3/uL Normal 0.0-0.5 [facility] Comment on above: Performed By: #### A PTT, TSH5, HEMDF, LDH3, DDI2, BMP3M, ESR, FOLT3, URIC3, FEIBC, FERR3, B12, FT4M #### [facility] [address] [address] #### HVAAO, ANA3, HEPAN, B2GPG, B2GPM, B2GPA #### [address] #### LUPUS #### The performing lab is in the report. Eosinophils/100 WBC (Bld) 2.9 % Normal 1.0-6.0 [facility] Comment on above: Performed By: #### A PTT, TSH5, HEMDF, LDH3, DDI2, BMP3M, ESR, FOLT3, URIC3, FEIBC, FERR3, B12, FT4M #### [facility] [address] [place] [address] #### HVAAO, ANA3, HEPAN, B2GPG, B2GPM, B2GPA #### [address] #### LUPUS #### The performing lab is in the report. Erythrocyte distribution width (RBC) [Ratio] 15.2 % High 11.5-14.5 [facility] Comment on above: Performed By: #### A PTT, TSH5, HEMDF, LDH3, DDI2, BMP3M, ESR, FOLT3, URIC3, FEIBC, FERR3, B12, FT4M #### [facility] [address] [place], [place] #### HVAAO, ANA3, HEPAN, B2GPG, B2GPM, B2GPA #### [address] #### LUPUS #### The performing lab is in the report. Granulocytes/100 WBC (Bld) 62.6 % Normal 40.0-80.0 [facility] Comment on above: Performed By: #### A PTT, TSH5, HEMDF, LDH3, DDI2, BMP3M, ESR, FOLT3, URIC3, FEIBC, FERR3, B12, FT4M #### [facility] [address] [place] [address] #### HVAAO, ANA3, HEPAN, B2GPG, B2GPM, B2GPA #### [address] #### LUPUS #### The performing lab is in the report. Hematocrit (Bld) [Volume fraction] 41.3 % Normal 35.0-47.0 [facility] Comment on above: Performed By: #### A PTT, TSH5, HEMDF, LDH3, DDI2, BMP3M, ESR, FOLT3, URIC3, FEIBC, FERR3, B12, FT4M #### [place] [address] [place] [address] #### HVAAO, ANA3, HEPAN, B2GPG, B2GPM, B2GPA #### [address] #### LUPUS #### The performing lab is in the report. Hemoglobin (Bld) [Mass/Vol] 13.9 g/dL Normal 11.7-16.0 [facility] Comment on above: Performed By: #### A PTT, TSH5, HEMDF, LDH3, DDI2, BMP3M, ESR, FOLT3, URIC3, FEIBC, FERR3, B12, FT4M #### [address] [place] [address] #### HVAAO, ANA3, HEPAN, B2GPG, B2GPM, B2GPA #### [address] #### LUPUS #### The performing lab is in the report. Lymphocytes (Bld) [#/Vol] 2.6 10*3/uL Normal 1.0-4.3 [facility] Comment on above: Performed By: #### A PTT, TSH5, HEMDF, LDH3, DDI2, BMP3M, ESR, FOLT3, URIC3, FEIBC, FERR3, B12, FT4M #### [address] [place] [address] #### HVAAO, ANA3, HEPAN, B2GPG, B2GPM, B2GPA #### [address] #### LUPUS #### The performing lab is in the report. Lymphocytes/100 WBC (Bld) 23.6 % Normal 20.0-40.0 [facility] Comment on above: Performed By: #### A PTT, TSH5, HEMDF, LDH3, DDI2, BMP3M, ESR, FOLT3, URIC3, FEIBC, FERR3, B12, FT4M #### [place] [address] [place] [address] #### HVAAO, ANA3, HEPAN, B2GPG, B2GPM, B2GPA #### [address] #### LUPUS #### The performing lab is in the report. MCH (RBC) [Entitic mass] 30.7 pg Normal 26.0-34.0 [facility] Comment on above: Performed By: #### A PTT, TSH5, HEMDF, LDH3, DDI2, BMP3M, ESR, FOLT3, URIC3, FEIBC, FERR3, B12, FT4M #### [address] [place] [address] #### HVAAO, ANA3, HEPAN, B2GPG, B2GPM, B2GPA #### [address] #### LUPUS #### The performing lab is in the report. MCHC 33.6 % Normal 32.0-36.0 [facility] Comment on above: Performed By: #### A PTT, TSH5, HEMDF, LDH3, DDI2, BMP3M, ESR, FOLT3, URIC3, FEIBC, FERR3, B12, FT4M #### [address] [place] [id number] #### HVAAO, ANA3, HEPAN, B2GPG, B2GPM, B2GPA #### [address] #### LUPUS #### The performing lab is in the report. MCV (RBC) [Entitic vol] 91.2 fL Normal 79.0-98.0 [facility] Comment on above: Performed By: #### A PTT, TSH5, HEMDF, LDH3, DDI2, BMP3M, ESR, FOLT3, URIC3, FEIBC, FERR3, B12, FT4M #### [place] [address] [place] [address] #### HVAAO, ANA3, HEPAN, B2GPG, B2GPM, B2GPA #### [address] #### LUPUS #### The performing lab is in the report. Monocytes (Bld) [#/Vol] 1.1 10*3/uL High 0.0-0.8 [facility] Comment on above: Performed By: #### A PTT, TSH5, HEMDF, LDH3, DDI2, BMP3M, ESR, FOLT3, URIC3, FEIBC, FERR3, B12, FT4M #### [address] [place] [address] #### HVAAO, ANA3, HEPAN, B2GPG, B2GPM, B2GPA #### [address] #### LUPUS #### The performing lab is in the report. Monocytes/100 WBC (Bld) 10.1 % High 2.0-10.0 [facility] Comment on above: Performed By: #### A PTT, TSH5, HEMDF, LDH3, DDI2, BMP3M, ESR, FOLT3, URIC3, FEIBC, FERR3, B12, FT4M #### [address] [place] [address] #### HVAAO, ANA3, HEPAN, B2GPG, B2GPM, B2GPA #### [address] #### LUPUS #### The performing lab is in the report. Platelet mean volume (Bld) [Entitic vol] 8.9 fL Normal 7.4-10.4 [facility] Comment on above: Performed By: #### A PTT, TSH5, HEMDF, LDH3, DDI2, BMP3M, ESR, FOLT3, URIC3, FEIBC, FERR3, B12, FT4M #### [place] [address] [place] [address] #### HVAAO, ANA3, HEPAN, B2GPG, B2GPM, B2GPA #### [address] #### LUPUS #### The performing lab is in the report. Platelets (Bld) [#/Vol] 208 10*3/uL Normal 140-440 [facility] Comment on above: Performed By: #### A PTT, TSH5, HEMDF, LDH3, DDI2, BMP3M, ESR, FOLT3, URIC3, FEIBC, FERR3, B12, FT4M #### [address] [place] [place] [address] #### HVAAO, ANA3, HEPAN, B2GPG, B2GPM, B2GPA #### [address] #### LUPUS #### The performing lab is in the report. RBC (Bld) [#/Vol] 4.53 10*6/uL Normal 3.80-5.20 [facility] Comment on above: Performed By: #### A PTT, TSH5, HEMDF, LDH3, DDI2, BMP3M, ESR, FOLT3, URIC3, FEIBC, FERR3, B12, FT4M #### [address] [place] [address] #### HVAAO, ANA3, HEPAN, B2GPG, B2GPM, B2GPA #### [address] #### LUPUS #### The performing lab is in the report. WBC (Bld) [#/Vol] 10.9 10*3/uL High 3.6-10.7 [facility] Comment on above: Performed By: #### A PTT, TSH5, HEMDF, LDH3, DDI2, BMP3M, ESR, FOLT3, URIC3, FEIBC, FERR3, B12, FT4M #### [address] [place] [place] [address] #### HVAAO, ANA3, HEPAN, B2GPG, B2GPM, B2GPA #### [address] #### LUPUS #### The performing lab is in the report. Prothrombin Timeon INR 1.0 Normal 0.9-1.1 [facility] Comment on above: Result Comment: Kwaku mmended Anticoagulant Therapy: SEE BELOW ----- INR of 2.0 - 3.0 : - Prophylaxis of Venous Thrombosis (high-risk surgery) - Treatment of Venous Thrombosis - Treatment of Pulmonary Embolism (Includes tissue heart valves, Acute Myocardial Infarction to prevent systemic embolism, Valvular Heart Disease, and Atrial Fibrillation) ----- INR of 2.5 - 3.5 : - Mechanical Prosthetic Valves (high risk) - If oral anticoagulant therapy is used to prevent Myocardial Infarction Performed By: #### A PTT, TSH5, HEMDF, LDH3, DDI2, BMP3M, ESR, FOLT3, URIC3, FEIBC, FERR3, B12, FT4M #### [facility] [address] [place] [address] #### HVAAO, ANA3, HEPAN, B2GPG, B2GPM, B2GPA #### [address] #### LUPUS #### The performing lab is in the report. PT Coag (PPP) [Time] 10.6 s Normal 9.0-12.0 [facility] Comment on above: Result Comment: . Performed By: #### A PTT, TSH5, HEMDF, LDH3, DDI2, BMP3M, ESR, FOLT3, URIC3, FEIBC, FERR3, B12, FT4M #### [facility] [address] [place], [place] #### HVAAO, ANA3, HEPAN, B2GPG, B2GPM, B2GPA #### [address] #### LUPUS #### The performing lab is in the report. Troponin Ion 11-02-2021 Troponin I.cardiac [Mass/Vol] ng/mL Normal 0.000-0.034 [facility] Comment on above: Result Comment: . Performed By: #### A PTT, TSH5, HEMDF, LDH3, DDI2, BMP3M, ESR, FOLT3, URIC3, FEIBC, FERR3, B12, FT4M #### [facility] [address] [place] [address] #### HVAAO, ANA3, HEPAN, B2GPG, B2GPM, B2GPA #### [facility] [address] [place] [address] #### LUPUS #### The performing lab is in the report. VL Venous Duplex US Lower Ex t Lefton 11-02-2021 VL Venous Duplex US Lower Ext Left Patient Name: CHAY TEAGUE Ultrasound ACCESSION EXAM DATE/TIME PROCEDURE ORDERING PROVIDER [id number] 11/02/2021 13:09 EST VL Venous Duplex [place] [id number] -SHARRI FATIMA Lower Ext Left CPT code 55766 Reason For Exam (VL Venous Duplex US Lower Ext Left) left lower leg swelling - new onset today Report [facility] Lower Extremity Venous Duplex Report Patient Chay Teague : 1945 Study 11/02/2021 Name: Krystal (76yrs) Date: Age: 76 Account: [id number] Gender: F Loc: 444 BP: Ordering Physician: Sharri Fatima Digital Forensic Examiner: Mikal Serna RVT Interpreting Physician: Christofer Carrillo MD Location: [facility] Indications: Edema left entire leg. New onset of edema in the left leg. CRITICAL RESULTS: A critical finding, was reported to Dr. Olivier by Mikal Bernal on 11/02/2021 , at 11:45 AM. Correct read-back was verified. Conclusions 1. Acute deep or superficial venous thrombosis noted in the left external iliac vein, left common femoral vein, left femoral vein, left saphenofemoral junction, left great saphenous vein, left deep femoral vein, left popliteal vein, left peroneal veins, left posterior tibial veins, left gastrocnemius veins, and left soleal vein. 2. The right common femoral vein fully compresses and demonstrates normal venous flow. History: Risk factors: Former tobacco use. Hypertension. Obese. Immobility. Age over 75 years. Ultrasound Report Study data: Complete lower extremity venous duplex evaluation. Grayscale 2D imaging, color Doppler imaging, and spectral Doppler analysis. Location: Vascular laboratory. Procedure: A vascular evaluation was performed with the patient in the supine position. Images were obtained using a [employer] vascular ultrasound machine. The study was technically limited due to immobility, patient positioning, obesity, and edema. Venous flow and imaging: + +----- +--------+----- + +Location +Overall +Thrombus+Properties + + +----- +--------+----- + +L external iliac +Totally +Acute +Noncompressible + + +occluded + + + + +----- +--------+----- + +L CFV +Totally +Acute +No flow; noncompressible + + +occluded + + + + +----- +--------+----- + +L FV - prox. +Totally +Acute +Noncompressible + + +occluded + + + + +----- +--------+----- + +L FV - mid +Totally +Acute +No flow; noncompressible + + +occluded + + + + +----- +--------+----- + +L FV - distal +Totally +Acute +Noncompressible + + +occluded + + + + +----- +--------+----- + +L saphenofemoral +Totally +Acute +Noncompressible + +junction +occluded + + + + +----- +--------+----- + +L GSV +Totally +Acute +Noncompressible + + +occluded + + + + +----- +--------+----- + +L profunda femoral+Totally +Acute +No flow + + +occluded + + + + +----- +--------+----- + +L popliteal +Totally +Acute +No flow; noncompressible + + +occluded + + + + +----- +--------+----- + +L peroneal +Totally +Acute +Noncompressible + + +occluded + + + + +----- +--------+----- + +L PTV +Totally +Acute +Noncompressible + + +occluded + + + + +----- +--------+----- + +L soleal +Totally +Acute +Noncompressible + + +occluded + + + + +----- +--------+----- + +L gastrocnemius +Totally +Acute +Noncompressible + + +occluded + + + + +----- +--------+----- + +R CFV +Patent +--------+Normal phasicity; + + + + +spontaneous; normal + + + + +augmentation; + + + + +compressible + + +----- +--------+----- + Prepared and electronically signed by Ultrasound Report Christofer Carrillo (more content not included)... Normal [facility] KNEE CMPLT, 4 OR MORE VIEWSo n 08-29-2021 KNEE CMPLT, 4 OR MORE VIEWS Patient Name: CHAY TEAGUE STUDY: KNEE; COMPLT, 4 OR MORE VIEWS INDICATION: knee pain M25.562: Knee pain, left. COMPARISON: None ACCESSION NUMBER(S): [id number] ORDERING CLINICIAN: NIMCO TURNER FINDINGS: Four views left knee demonstrate minimal degenerative change. No fracture seen. No osseous abnormality. IMPRESSION: No acute findings left knee. Electronically signed by: JACKLYN MURDOCK MD Normal [facility] Office Visit (Urgent Care)on 08-29-2021 Follow-up visit Diagnoses/Problems Assessed Knee pain, left (719.46) (M25.562) Orders Knee pain, left Xray Knee Complete 4 or more View; Status:Resulted - Requires Verification; Done: [id number] 07:42PM Performed:[facility]; Due:27Nov2021;Ordered; Stat; For:Knee pain, left; Ordered By:Nimco Turner; Laterality : Left Radiologist to Determine Optimal Study : Y What are the patient's signs and symptoms? : knee pain Patient Discussion/Summary Pieter wrap for comfort Ibuprofen as needed for pain Ice 10-15 minutes 4-5 times daily Elevate leg is much as possible If no improvement in the next 1 week please follow-up with your primary care doctor Provider Impressions X-ray per radiologist review does not reveal any fractures or dislocations Encouraged ibuprofen, ice, Pieter wrap and elevation Encouraged to follow-up with primary care doctor if pain is not proving in the next 1 week They verbalized agreement and understanding with the Chief Complaint Chief Complaints Knee Injury History of Present Illness Patient is a 76-year-old female who presents with left knee pain. She fell approximately 2 days ago. She likely landed on that knee as there is a small abrasion. Pain is worse today than it was yesterday. There is no swelling. Patient has pain with standing and seems to be more off balance than her normal. Active Problems Problems Acute bronchitis (466.0) (J20.9) Moderate asthma (493.90) (J45.909) Social History Problems Former smoker (V15.82) (Z87.891) Allergies Medication No Known Drug Allergies Recorded By: Marybel Melvin; 12/06/2017 3:59:04 PM Current Meds Medication NameInstruction Albuterol Sulfate (2.5 MG/3ML) 0.083% Inhalation Nebulization SolutionUSE 1 UNIT DOSE IN NEBULIZER UP TO EVERY 4 TO 6 HOURS NEEDED FOR PERSISTENT COUGH, WHEEZE OR SOB. Azithromycin 250 MG Oral TabletTAKE 2 TABLETS ON DAY 1 THEN TAKE 1 TABLET A DAY FOR 4 DAYS. Nebulizer DeviceUSE DIRECTED. predniSONE 10 MG Oral Tablet3 tabs day number 1 and 2, then 2 tabs day number 3 and 4, then 1 tab day number 5 and 6 Spacer for Metered Dose InhalerUse with inhaler to get the medication down into your lungs. Pharmacy: Please have patient demonstrate appropriate use. Thx. Vitals Vital Signs Recorded: [id number] 07:41PM Rosmjdtbgbb93.3 F Heart Wzyz238 Fyaureppnzh22 Wsrzduxg339 Flpcdxukt59 Height5 ft 1 in Xkzyrd199 lb BMI Qfluzbkhzl32.9 kg/m2 BSA Calculated1.85 Tobacco Useb) No Fall Screeningb) One or more falls in the last year O2 Jkgycmkypt50 Physical Exam Constitutional: Well developed, well nourished. vital signs reviewed. patient alert Head and Face: Head and face: Normal. Eyes: Normal external exam - pupils were equal in size, round, reactive to light (PERRL) with normal accommodation and extraocular movements intact (EOMI). Pulmonary: No respiratory distress. Musculoskeletal: Range of motion of knee is normal. There is a small abrasion on patella. No surrounding edema or erythema. There is tenderness lateral and distal to the patella. No swelling of the knee appreciate. Psychiatric: Mood and affect: Normal. Results/Data Xray Knee Complete 4 or more [id number] 07:42PMNimco Turner Test NameResultFlagReference Xray Knee Complete 4 or more View(Report) FINAL REPORT Interpreted by: JACKLYN MURDOCK CHRISTOPHER, MD 08/29/21 19:50 Patient Name: CHAY TEAGUE STUDY: KNEE; COMPLT, 4 OR MORE VIEWS INDICATION: knee pain M25.562: Knee pain, left. COMPARISON: None ACCESSION NUMBER(S): [id number] ORDERING CLINICIAN: NIMCO TURNER FINDINGS: Four views left knee demonstrate minimal degenerative change. No fracture seen. No osseous abnormality. IMPRESSION: No acute findings left knee. Electronically signed by: JACKLYN MURDOCK 08/29/21 19:50 Signatures Electronically signed by : Nimco Turner, [employer]AP[employer]OADCAST SUPERVISOR; Aug 29 2021 8:16PM EST (Author) Normal [facility] 08-29-2021 XR Knee 4 Views Normal [facility] Work Phone: Tobacco Screening.on 021 Fall risk assessment b) One or more fall s in the last year [facility] Work Phone: Tobacco use status CP b) No [facility] Work Phone: CBC Auto DifferentialOrdered By: Cynthia Uribe on 05-10-2021 Absolute Baso # 0.1 10*3/uL 0.0 - 0.2 10*3/uL [facility] Work Phone: Absolute Neut # 4.9 10*3/uL 1.8 - 7.0 10*3/uL [facility] Work Phone: Basophils/100 WBC (Bld) 0.8 % 0.0 - 2.0 % [facility] Work Phone: Eosinophils (Bld) [#/Vol] 0.3 10*3/uL 0.0 - 0.5 10*3/uL [facility] Work Phone: 1) 222 Eosinophils/100 WBC (Bld) 3.2 % 1.0 - 6.0 % [facility] Work Phone: 1) 222 Granulocytes/100 WBC (Bld) 59.4 % 40.0 - 80.0 % [facility] Work Phone: 1) 222 Hematocrit (Bld) [Volume fraction] 44.8 % 35.0 - 47.0 % [facility] Work Phone: 1) 222 Hemoglobin.gastrointes tinal spec 1 Ql (Stl) 15.1 g/dL 11.7 - 16.0 g/dL [facility] Work Phone: [phone]) 222 Interpretation and review of laboratory results Abnormal [facility] Work Phone: 222 Lymphocytes (Bld) [#/Vol] 2.3 10*3/uL 1.0 - 4.3 10*3/uL [facility] Work Phone: 1) 222 Lymphocytes/100 WBC (Bld) 28.2 % 20.0 - 40.0 % [facility] Work Phone: 1) 222 MCH (RBC) [Entitic mass] 30.4 pg 26.0 - 34.0 pg [facility] Work Phone: 1) 222 MCHC (RBC) [Mass/Vol] 33.6 % 32.0 - 36.0 % [facility] Work Phone: 1) 222 MCV (RBC) [Entitic vol] 90.3 fL 79.0 - 98.0 fL [facility] Work Phone: 1() 222 Monocytes (Bld) [#/Vol] 0.7 10*3/uL 0.0 - 0.8 10*3/uL [facility] Work Phone: 1() 222 Monocytes/100 WBC (Bld) 8.4 % 2.0 - 10.0 % [facility] Work Phone: 1) 222 Platelet distribution width (Bld) [Ratio] 14.6 % High 11.5 - 14.5 % [facility] Work Phone: 1) 222 Platelet mean volume (Bld) [Entitic vol] 8.0 fL 7.4 - 10.4 fL [facility] Work Phone: [phone] Platelets (Bld) [#/Vol] 268 10*3/uL 140 - 440 10*3/uL [facility] Work Phone: [phone] RBC (Bld) [#/Vol] 4.96 10*6/uL 3.80 - 5.2 0 10*6/uL [facility] Work Phone: [phone] WBC (Bld) [#/Vol] 8.2 10*3/uL 3.6 - 10.7 10*3/uL [facility] Work Phone: [phone] Test Performed by [facility], [address] [place] , [address] Work Phone: [phone] [facility] Work Phone: [phone] Comp Metabolic Panelon 05-10 ALP [Catalytic activity/Vol] 122 U/L Normal 38-126 [facility] Comment on above: Performed By: #### A PTT, TSH5, HEMDF, LDH3, DDI2, BMP3M, ESR, FOLT3, URIC3, FEIBC, FERR3, B12, FT4M #### [facility] [address] [place] [address] #### HVAAO, ANA3, HEPAN, B2GPG, B2GPM, B2GPA #### [facility] [address] [place] [phone] #### LUPUS #### The performing lab is in the report. ALT [Catalytic activity/Vol] 19 U/L Normal 0-34 [facility] Comment on above: Result Comment: The ALT test is performed by an updated assay method. Please note that the reference intervals have been changed and are now sex specific. Performed By: #### A PTT, TSH5, HEMDF, LDH3, DDI2, BMP3M, ESR, FOLT3, URIC3, FEIBC, FERR3, B12, FT4M #### [facility] [address] [place] [address] #### HVAAO, ANA3, HEPAN, B2GPG, B2GPM, B2GPA #### [address] #### LUPUS #### The performing lab is in the report. AST [Catalytic activity/Vol] 33 U/L Normal 15-46 [facility] Comment on above: Performed By: #### A PTT, TSH5, HEMDF, LDH3, DDI2, BMP3M, ESR, FOLT3, URIC3, FEIBC, FERR3, B12, FT4M #### [place] [address] [place] [address] #### HVAAO, ANA3, HEPAN, B2GPG, B2GPM, B2GPA #### [address] #### LUPUS #### The performing lab is in the report. Calcium [Mass/Vol] 9.8 mg/dL Normal 8.4-10.4 [facility] Comment on above: Performed By: #### A PTT, TSH5, HEMDF, LDH3, DDI2, BMP3M, ESR, FOLT3, URIC3, FEIBC, FERR3, B12, FT4M #### [address] [place] [address] #### HVAAO, ANA3, HEPAN, B2GPG, B2GPM, B2GPA #### [address] #### LUPUS #### The performing lab is in the report. Glucose [Mass/Vol] 98 mg/dL Normal 70-100 [facility] Comment on above: Performed By: #### A PTT, TSH5, HEMDF, LDH3, DDI2, BMP3M, ESR, FOLT3, URIC3, FEIBC, FERR3, B12, FT4M #### [address] [place] [place] [address] #### HVAAO, ANA3, HEPAN, B2GPG, B2GPM, B2GPA #### [address] #### LUPUS #### The performing lab is in the report. Protein [Mass/Vol] 8.0 g/dL Normal 6.3-8.2 [facility] Comment on above: Performed By: #### A PTT, TSH5, HEMDF, LDH3, DDI2, BMP3M, ESR, FOLT3, URIC3, FEIBC, FERR3, B12, FT4M #### [place] [address] [place] [address] #### HVAAO, ANA3, HEPAN, B2GPG, B2GPM, B2GPA #### [address] #### LUPUS #### The performing lab is in the report. Urea nitrogen [Mass/Vol] 22 mg/dL High 7-20 [facility] Comment on above: Performed By: #### A PTT, TSH5, HEMDF, LDH3, DDI2, BMP3M, ESR, FOLT3, URIC3, FEIBC, FERR3, B12, FT4M #### [place] [address] [place] [address] #### HVAAO, ANA3, HEPAN, B2GPG, B2GPM, B2GPA #### [address] #### LUPUS #### The performing lab is in the report. Anion gap [Moles/Vol] 6 mmol/L Normal 3-13 [facility] Comment on above: Performed By: #### A PTT, TSH5, HEMDF, LDH3, DDI2, BMP3M, ESR, FOLT3, URIC3, FEIBC, FERR3, B12, FT4M #### [address] [place] [address] #### HVAAO, ANA3, HEPAN, B2GPG, B2GPM, B2GPA #### [address] #### LUPUS #### The performing lab is in the report. Bilirubin [Mass/Vol] 0.7 mg/dL Normal 0.2-1.3 [facility] Comment on above: Performed By: #### A PTT, TSH5, HEMDF, LDH3, DDI2, BMP3M, ESR, FOLT3, URIC3, FEIBC, FERR3, B12, FT4M #### [address] [place] [address] #### HVAAO, ANA3, HEPAN, B2GPG, B2GPM, B2GPA #### [address] #### LUPUS #### The performing lab is in the report. CO2 [Moles/Vol] 30 mmol/L Normal 22-30 [facility] Comment on above: Performed By: #### A PTT, TSH5, HEMDF, LDH3, DDI2, BMP3M, ESR, FOLT3, URIC3, FEIBC, FERR3, B12, FT4M #### [address] [place] #### HVAAO, ANA3, HEPAN, B2GPG, B2GPM, B2GPA #### [address] #### LUPUS #### The performing lab is in the report. Creatinine [Mass/Vol] 0.99 mg/dL Normal 0.52-1.25 [facility] Comment on above: Performed By: #### A PTT, TSH5, HEMDF, LDH3, DDI2, BMP3M, ESR, FOLT3, URIC3, FEIBC, FERR3, B12, FT4M #### [address] [place] [address] #### HVAAO, ANA3, HEPAN, B2GPG, B2GPM, B2GPA #### [address] #### LUPUS #### The performing lab is in the report. GFR/1.73 sq M.predicted among blacks MDRD (S/P/Bld) [Vol rate/Area] 63.2 mL/min/{1.73_m2} Normal >60 [facility] Comment on above: Performed By: #### A PTT, TSH5, HEMDF, LDH3, DDI2, BMP3M, ESR, FOLT3, URIC3, FEIBC, FERR3, B12, FT4M #### [facility] [address] [place] [address] #### HVAAO, ANA3, HEPAN, B2GPG, B2GPM, B2GPA #### [facility] [address], [place] #### LUPUS #### The performing lab is in the report. GFR/1.73 sq M.predicted among non-blacks MDRD (S/P/Bld) [Vol rate/Area] 54.6 mL/min/{1.73_m2} Abnormal >60 [facility] Comment on above: Result Comment: KDIG O guidelines provide the following GFR categories: Stage GFR(ml/min/1.73 m2) Terms G1 >=90 Normal or high G2 60-89 Mildly decreased* G3a 45-59 Mildly to moderately decreased G3b 30-44 Moderately to severely decreased G4 15-29 Severely decreased G5 <15 Kidney failure *Relative to young adult level. In the absence of evidence of kidney damage, neither GFR category G1 nor G2 fulfill the criteria for CKD. The CKD-EPI equation is validated in individuals 18 years of age and older. Currently the best equation for estimating glomerular filtration rate (GFR) from serum creatinine in children is the Bedside Kerr equation. It is less accurate in patients with extremes of muscle mass, restriction of dietary protein, ingestion of creatine, extra-renal metabolism of creatinine, or treatment with medications that affect renal tubular creatinine secretion. Performed By: #### A PTT, TSH5, HEMDF, LDH3, DDI2, BMP3M, ESR, FOLT3, URIC3, FEIBC, FERR3, B12, FT4M #### [facility] [address] [place] [address] #### HVAAO, ANA3, HEPAN, B2GPG, B2GPM, B2GPA #### [facility] [address] [place] [address] #### LUPUS #### The performing lab is in the report. Albumin [Mass/Vol] 4.1 g/dL Normal 3.5-5.0 [facility] Comment on above: Performed By: #### A PTT, TSH5, HEMDF, LDH3, DDI2, BMP3M, ESR, FOLT3, URIC3, FEIBC, FERR3, B12, FT4M #### [facility] [address] [place] [address] #### HVAAO, ANA3, HEPAN, B2GPG, B2GPM, B2GPA #### [address] #### LUPUS #### The performing lab is in the report. Chloride [Moles/Vol] 105 mmol/L Normal 98-107 [facility] Comment on above: Performed By: #### A PTT, TSH5, HEMDF, LDH3, DDI2, BMP3M, ESR, FOLT3, URIC3, FEIBC, FERR3, B12, FT4M #### [place] [address] [place] [address] #### HVAAO, ANA3, HEPAN, B2GPG, B2GPM, B2GPA #### [address] #### LUPUS #### The performing lab is in the report. Potassium [Moles/Vol] 4.3 mmol/L Normal 3.5-5.1 [facility] Comment on above: Performed By: #### A PTT, TSH5, HEMDF, LDH3, DDI2, BMP3M, ESR, FOLT3, URIC3, FEIBC, FERR3, B12, FT4M #### [place] [address] [place] [address] #### HVAAO, ANA3, HEPAN, B2GPG, B2GPM, B2GPA #### [address] #### LUPUS #### The performing lab is in the report. Sodium [Moles/Vol] 141 mmol/L Normal 135-145 [facility] Comment on above: Performed By: #### A PTT, TSH5, HEMDF, LDH3, DDI2, BMP3M, ESR, FOLT3, URIC3, FEIBC, FERR3, B12, FT4M #### [place] [address] [place] [address] #### HVAAO, ANA3, HEPAN, B2GPG, B2GPM, B2GPA #### [employer] [address] [place] [address] #### LUPUS #### The performing lab is in the report. Comprehensive Metabolic Pane lOrdered By: Cynthia Uribe on 05-10-2021 Albumin [Mass/Vol] 4.1 g/dL 3.5 - 5.0 g/dL [facility] Work Phone: ALP (Bld) [Catalytic activity/Vol] 122 U/L 38 - 126 U/L [facility] Work Phone: ALT [Catalytic activity/Vol] 19 U/L 0 - 34 U/L [facility] Work Phone: Comment on above: The ALT test is perf ormed by an updated assay method. Please note that the reference intervals have been changed and are now sex specific. Anion gap [Moles/Vol] 6 mmol/L 3 - 13 mmol/L [facility] Work Phone: [phone] AST [Catalytic activity/Vol] 33 U/L 15 - 46 U/L [facility] Work Phone: [phone] Bilirubin [Mass/Vol] 0.7 mg/dL 0.2 - 1 .3 mg/dL [facility] Work Phone: [phone] Calcium [Mass/Vol] 9.8 mg/dL 8.4 - 10. 4 mg/dL [facility] Work Phone: [phone] Chloride [Moles/Vol] 105 mmol/L 98 - 10 7 mmol/L [facility] Work Phone: 222 CO2 [Moles/Vol] 30 mmol/L 22 - 30 mmol/L [facility] Work Phone: 222 Creatinine [Mass/Vol] 0.99 mg/dL 0.52 - 1.25 mg/dL [facility] Work Phone: 222 EGFR IF NonAfrican [place] 54.6 mL/min Abnormal >[address] [facility] Work Phone: [phone] Comment on above: KDIGO guidelines pro vide the following GFR categories: Stage GFR(ml/min/1.73 m2) Terms G1 >=90 Normal or high G2 60-89 Mildly decreased* G3a 45-59 Mildly to moderately decreased G3b 30-44 Moderately to severely decreased G4 15-29 Severely decreased G5 <15 Kidney failure *Relative to young adult level. In the absence of evidence of kidney damage, neither GFR category G1 nor G2 fulfill the criteria for CKD. The CKD-EPI equation is validated in individuals 18 years of age and older. Currently the best equation for estimating glomerular filtration rate (GFR) from serum creatinine in children is the Bedside Kerr equation. It is less accurate in patients with extremes of muscle mass, restriction of dietary protein, ingestion of creatine, extra-renal metabolism of creatinine, or treatment with medications that affect renal tubular creatinine secretion. Free PSA/Total PSA [Mass fraction] 8.0 g/dL 6.3 - 8.2 g/dL [facility] Work Phone: GFR/1.73 sq M.predicted among blacks MDRD (S/P/Bld) [Vol rate/Area] 63.2 mL/min/{1.73_m2} >60 [facility] Work Phone: Glucose [Mass/Vol] 98 mg/dL 70 - 100 mg/dL [facility] Work Phone: [phone] Interpretation and review of laboratory results Abnormal [facility] Work Phone: [phone] Potassium [Moles/Vol] 4.3 mmol/L 3.5 - 5.1 mmol/L [facility] Work Phone: [phone] Sodium [Moles/Vol] 141 mmol/L 135 - 145 mmol/L [facility] Work Phone: Urea nitrogen (BldV) [Mass/Vol] 22 mg/dL High 7 - 20 mg/dL [facility] Work Phone: Test Performed by [facility] [employer], [facility] [address] , [place], [place] [address] [facility] [address] [facility] Work Phone: [phone] [facility] Work Phone: Hemogram w/ Autodiffon 05-10 Abs Baso Cnt 0.1 10*3/uL Normal 0.0-0.2 [facility] Comment on above: Performed By: #### A PTT, TSH5, HEMDF, LDH3, DDI2, BMP3M, ESR, FOLT3, URIC3, FEIBC, FERR3, B12, FT4M #### [address] [place] [address] #### HVAAO, ANA3, HEPAN, B2GPG, B2GPM, B2GPA #### [address] #### LUPUS #### The performing lab is in the report. Abs Neutrophile Cnt 4.9 10*3/uL Normal 1.8-7.0 [facility] Comment on above: Performed By: #### A PTT, TSH5, HEMDF, LDH3, DDI2, BMP3M, ESR, FOLT3, URIC3, FEIBC, FERR3, B12, FT4M #### [address] [facility] [place] #### HVAAO, ANA3, HEPAN, B2GPG, B2GPM, B2GPA #### [address] #### LUPUS #### The performing lab is in the report. Basophils/100 WBC (Bld) 0.8 % Normal 0.0-2.0 [facility] Comment on above: Performed By: #### A PTT, TSH5, HEMDF, LDH3, DDI2, BMP3M, ESR, FOLT3, URIC3, FEIBC, FERR3, B12, FT4M #### [address] [facility] [place] [place] #### HVAAO, ANA3, HEPAN, B2GPG, B2GPM, B2GPA #### [address] #### LUPUS #### The performing lab is in the report. Eosinophils (Bld) [#/Vol] 0.3 10*3/uL Normal 0.0-0.5 [facility] Comment on above: Performed By: #### A PTT, TSH5, HEMDF, LDH3, DDI2, BMP3M, ESR, FOLT3, URIC3, FEIBC, FERR3, B12, FT4M #### [facility] [address] [place] [address] #### HVAAO, ANA3, HEPAN, B2GPG, B2GPM, B2GPA #### [address] #### LUPUS #### The performing lab is in the report. Eosinophils/100 WBC (Bld) 3.2 % Normal 1.0-6.0 [facility] Comment on above: Performed By: #### A PTT, TSH5, HEMDF, LDH3, DDI2, BMP3M, ESR, FOLT3, URIC3, FEIBC, FERR3, B12, FT4M #### [address] [place], [place] #### HVAAO, ANA3, HEPAN, B2GPG, B2GPM, B2GPA #### [address] #### LUPUS #### The performing lab is in the report. Erythrocyte distribution width (RBC) [Ratio] 14.6 % High 11.5-14.5 [facility] Comment on above: Performed By: #### A PTT, TSH5, HEMDF, LDH3, DDI2, BMP3M, ESR, FOLT3, URIC3, FEIBC, FERR3, B12, FT4M #### [address] [place] [address] #### HVAAO, ANA3, HEPAN, B2GPG, B2GPM, B2GPA #### [address] #### LUPUS #### The performing lab is in the report. Granulocytes/100 WBC (Bld) 59.4 % Normal 40.0-80.0 [facility] Comment on above: Performed By: #### A PTT, TSH5, HEMDF, LDH3, DDI2, BMP3M, ESR, FOLT3, URIC3, FEIBC, FERR3, B12, FT4M #### [address] [place] [address] #### HVAAO, ANA3, HEPAN, B2GPG, B2GPM, B2GPA #### [address] #### LUPUS #### The performing lab is in the report. Hematocrit (Bld) [Volume fraction] 44.8 % Normal 35.0-47.0 [facility] Comment on above: Performed By: #### A PTT, TSH5, HEMDF, LDH3, DDI2, BMP3M, ESR, FOLT3, URIC3, FEIBC, FERR3, B12, FT4M #### [address] [place] [address] #### HVAAO, ANA3, HEPAN, B2GPG, B2GPM, B2GPA #### [address] #### LUPUS #### The performing lab is in the report. Hemoglobin (Bld) [Mass/Vol] 15.1 g/dL Normal 11.7-16.0 [facility] Comment on above: Performed By: #### A PTT, TSH5, HEMDF, LDH3, DDI2, BMP3M, ESR, FOLT3, URIC3, FEIBC, FERR3, B12, FT4M #### [address] [facility] [place] #### HVAAO, ANA3, HEPAN, B2GPG, B2GPM, B2GPA #### [address] #### LUPUS #### The performing lab is in the report. Lymphocytes (Bld) [#/Vol] 2.3 10*3/uL Normal 1.0-4.3 [facility] Comment on above: Performed By: #### A PTT, TSH5, HEMDF, LDH3, DDI2, BMP3M, ESR, FOLT3, URIC3, FEIBC, FERR3, B12, FT4M #### [address] [place] [address] #### HVAAO, ANA3, HEPAN, B2GPG, B2GPM, B2GPA #### [address] #### LUPUS #### The performing lab is in the report. Lymphocytes/100 WBC (Bld) 28.2 % Normal 20.0-40.0 [facility] Comment on above: Performed By: #### A PTT, TSH5, HEMDF, LDH3, DDI2, BMP3M, ESR, FOLT3, URIC3, FEIBC, FERR3, B12, FT4M #### [facility] [address] [place], [place] #### HVAAO, ANA3, HEPAN, B2GPG, B2GPM, B2GPA #### [address] #### LUPUS #### The performing lab is in the report. MCH (RBC) [Entitic mass] 30.4 pg Normal 26.0-34.0 [facility] Comment on above: Performed By: #### A PTT, TSH5, HEMDF, LDH3, DDI2, BMP3M, ESR, FOLT3, URIC3, FEIBC, FERR3, B12, FT4M #### [facility] [address] [place], [place] #### HVAAO, ANA3, HEPAN, B2GPG, B2GPM, B2GPA #### [address] #### LUPUS #### The performing lab is in the report. MCHC 33.6 % Normal 32.0-36.0 [facility] Comment on above: Performed By: #### A PTT, TSH5, HEMDF, LDH3, DDI2, BMP3M, ESR, FOLT3, URIC3, FEIBC, FERR3, B12, FT4M #### [facility] [address] [place], [place] #### HVAAO, ANA3, HEPAN, B2GPG, B2GPM, B2GPA #### [address] #### LUPUS #### The performing lab is in the report. MCV (RBC) [Entitic vol] 90.3 fL Normal 79.0-98.0 [facility] Comment on above: Performed By: #### A PTT, TSH5, HEMDF, LDH3, DDI2, BMP3M, ESR, FOLT3, URIC3, FEIBC, FERR3, B12, FT4M #### [facility] [address] [place] [address] #### HVAAO, ANA3, HEPAN, B2GPG, B2GPM, B2GPA #### [address] #### LUPUS #### The performing lab is in the report. Monocytes (Bld) [#/Vol] 0.7 10*3/uL Normal 0.0-0.8 [facility] Comment on above: Performed By: #### A PTT, TSH5, HEMDF, LDH3, DDI2, BMP3M, ESR, FOLT3, URIC3, FEIBC, FERR3, B12, FT4M #### [facility] [address] [facility] [place] #### HVAAO, ANA3, HEPAN, B2GPG, B2GPM, B2GPA #### [address] #### LUPUS #### The performing lab is in the report. Monocytes/100 WBC (Bld) 8.4 % Normal 2.0-10.0 [facility] Comment on above: Performed By: #### A PTT, TSH5, HEMDF, LDH3, DDI2, BMP3M, ESR, FOLT3, URIC3, FEIBC, FERR3, B12, FT4M #### [facility] [address] [place] [address] #### HVAAO, ANA3, HEPAN, B2GPG, B2GPM, B2GPA #### [address] #### LUPUS #### The performing lab is in the report. Platelet mean volume (Bld) [Entitic vol] 8.0 fL Normal 7.4-10.4 [facility] Comment on above: Performed By: #### A PTT, TSH5, HEMDF, LDH3, DDI2, BMP3M, ESR, FOLT3, URIC3, FEIBC, FERR3, B12, FT4M #### [facility] [address] [place] [address] #### HVAAO, ANA3, HEPAN, B2GPG, B2GPM, B2GPA #### [address] #### LUPUS #### The performing lab is in the report. Platelets (Bld) [#/Vol] 268 10*3/uL Normal 140-440 [facility] Comment on above: Performed By: #### A PTT, TSH5, HEMDF, LDH3, DDI2, BMP3M, ESR, FOLT3, URIC3, FEIBC, FERR3, B12, FT4M #### [facility] [address] [address] #### HVAAO, ANA3, HEPAN, B2GPG, B2GPM, B2GPA #### [address] #### LUPUS #### The performing lab is in the report. RBC (Bld) [#/Vol] 4.96 10*6/uL Normal 3.80-5.20 [facility] Comment on above: Performed By: #### A PTT, TSH5, HEMDF, LDH3, DDI2, BMP3M, ESR, FOLT3, URIC3, FEIBC, FERR3, B12, FT4M #### [facility] [address] [address] #### HVAAO, ANA3, HEPAN, B2GPG, B2GPM, B2GPA #### [address] #### LUPUS #### The performing lab is in the report. WBC (Bld) [#/Vol] 8.2 10*3/uL Normal 3.6-10.7 [facility] Comment on above: Performed By: #### A PTT, TSH5, HEMDF, LDH3, DDI2, BMP3M, ESR, FOLT3, URIC3, FEIBC, FERR3, B12, FT4M #### [facility] [address] [place] [address] #### HVAAO, ANA3, HEPAN, B2GPG, B2GPM, B2GPA #### [address] [address] #### LUPUS #### The performing lab is in the report. Hep C Antibodyon 05-10-2021 Hep C Antibody Not detected Normal Not Detected [facility] Comment on above: Result Comment: Patients with DETECTED Hepatitis C Ab results should have a new specimen submitted for supplemental testing with a Hepatitis C Quantitative RNA assay (viral load), if clinically indicated. Performed By: #### A PTT, TSH5, HEMDF, LDH3, DDI2, BMP3M, ESR, FOLT3, URIC3, FEIBC, FERR3, B12, FT4M #### [facility] [address] [place] [address] #### HVAAO, ANA3, HEPAN, B2GPG, B2GPM, B2GPA #### [address] [address] #### LUPUS #### The performing lab is in the report. Hepatitis C AntibodyOrdered By: Cynthia Uribe on 05-10-2021 Hepatitis C Ab Not detected Not Detected NA [facility] Work Phone: Comment on above: Patients with DETECTED Hepatitis C Ab results should have a new specimen submitted for supplemental testing with a Hepatitis C Quantitative RNA assay (viral load), if clinically indicated. Test Performed by [id number] [place] [address] Work Phone: [facility] Work Phone: TSH without ReflexOrdered By : Cynthia Uribe on 05-10-2021 TSH Qn 2.583 u[IU]/mL 0.465 - 4.680 u[IU]/mL [facility] Work Phone: Test Performed by [facility], [address] , [place], [place] [address] [facility] Work Phone: [facility] Work Phone: Thyroid Stim. Hormoneon 04-22 Thyroid Stim. Hormone 2.583 u[IU]/mL Normal 0.465-4.68 0 [facility] Comment on above: Performed By: #### A PTT, TSH5, HEMDF, LDH3, DDI2, BMP3M, ESR, FOLT3, URIC3, FEIBC, FERR3, B12, FT4M #### [facility] [employer] [facility] [address] [place] [address] #### HVAAO, ANA3, HEPAN, B2GPG, B2GPM, B2GPA #### [address] #### LUPUS #### The performing lab is in the report. Vit D 25-OH, Totalon 021 Vit D 25-OH, Total 51 ng/mL Normal 30-100 [facility] Comment on above: Result Comment: Ther apy is based on measurement of Total 25- OHD with the following classification levels: Less than 20 ng/mL: Indicative of Vit D deficiency 20-30 ng/mL: Suggests Vit D insufficiency Optimal: Greater than or equal to 30 ng/mL Test performed by [employer], measuring Total Vitamin D, not individual fractions. Performed By: #### A PTT, TSH5, HEMDF, LDH3, DDI2, BMP3M, ESR, FOLT3, URIC3, FEIBC, FERR3, B12, FT4M #### [facility] [facility] [address] [place] [address] #### HVAAO, ANA3, HEPAN, B2GPG, B2GPM, B2GPA #### [facility] [address] [place] [address] #### LUPUS #### The performing lab is in the report. Vitamin D 25 HydroxyOrdered By: Cynthia Uribe on 05-10-2021 Vit D, 25-Hydroxy 51 ng/mL 30 - 100 ng/mL [facility] Work Phone: Comment on above: Therapy is based on measurement of Total 25-OHD with the following classification levels: Less than 20 ng/mL: Indicative of Vit D deficiency 20-30 ng/mL: Suggests Vit D insufficiency Optimal: Greater than or equal to 30 ng/mL Test performed by [employer], measuring Total Vitamin D, not individual fractions. Test Performed by [facility], [address] [place], [place], [place] [address] [facility] Work Phone: [facility] Work Phone: Brain Natriuretic Peptideon 11-02-2020 Natriuretic peptide B (Bld) [Mass/Vol] 51 pg/mL 0 - 450 pg/mL [facility] Work Phone: COVID-19, Rapidon 11-02-2020 Sodium [Moles/Vol] see below [employer] Work Phone: Comment on above: Not Detected Expected Result: Not Detected _ Isothermal nucleic acid amplification performed on the [employer] Now System by the [facility] Negative results do not preclude SARS-CoV-2 infection and should not be used as the sole basis for treatment or other patient management decisions. This assay was developed by [employer] and distributed under an Emergency Use Authorization (EUA) granted by the FDA for the qualitative detection of SARS-CoV-2 nucleic acid. Provider and patient fact sheets can be found at https://www.fda.gov/media/726469/download and https://www.fda.gov/media/292274/download. Test Performed by [facility], [address] [place], [place] [address] [facility] Work Phone: CT Abdomen Pelvis W Contrast on 11-02-2020 Patient Name: CHAY TEAGUE [facility] ACCESSION EXAM DATE/TIME PROCEDURE ORDERING PROVIDER [id number] 11/02/2020 17:[address] Abdomen/Pelvis w/ IV [id number] JAME DEGROOT Contrast (IV Onl CPT code 50369 Q9967 Reason For Exam (CT Abdomen/Pelvis w/ IV Contrast (IV Onl) RLQ abd pain, eval for appy Report CLINICAL HISTORY: RLQ abd pain, eval for appy COMPARISON: None Technique: Axial CT images were obtained of the abdomen and pelvis after the uneventful IV administration of 75 mL of Isovue 370 IV contrast. Images were reformatted in coronal and sagittal projections. Oral contrast: Not given FINDINGS: Lung bases: Mild bibasilar atelectasis Liver/Biliary system: No masses, significant fluid collections, or biliary dilatation. Cholelithiasis or focal fundal wall calcification is seen with no clear wall thickening or pericholecystic inflammatory fat stranding. Spleen: Not enlarged. 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 Pancreas: No significant abnormality. Adrenal glands: No significant abnormality. Kidneys: No hydronephrosis or renal calculi are seen. Scattered subcentimeter hypodensities are too small to accurately characterize but likely represent cysts. Bowel: Moderate hiatal hernia is present. Colonic diverticulosis is seen with no evidence of acute diverticulitis. The bowel is of normal caliber throughout without evidence of wall thickening or obstruction. The appendix is normal Mesentery/Intraperitoneum : No intraperitoneal free fluid or air is seen. Mesentery is normal in appearance. Lymph nodes: No lymphadenopathy Computed Tomography Report Vasculature: The abdominal aorta is normal in caliber without evidence of aneurysmal dilatation. 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 Pelvic organs: No masses or other significant abnormalities seen. Soft tissues and Osseous structures: No evidence of fracture. No suspicious osseous lesions. Mild multilevel degenerative changes are seen in the lumbar spine with grade 1 anterolisthesis of L4 on L5. IMPRESSION: 1. No acute inflammatory process is seen in the abdomen or pelvis. The appendix is normal in appearance. 2. Small gallstones or focal fundal wall calcification in the gallbladder with no CT evidence of acute cholecystitis. 3. Colonic diverticulosis with no evidence of acute diverticulitis. 4. Moderate hiatal hernia. 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 Report Dictated on --- Final --- Dictating Physician: MD LYMAN JAMES Signed Date and Time: 11/02/2020 5:59 pm Signed by: MD LYMAN JAMES Transcribed Date and Time: 11/02/2020 6:00 [facility] Work Phone: Jt, [facility] Incoming Radiology Results From [facility] - 11/02/2020 6:01 PM EST Patient Name: CHAY TEAGUE [facility] ACCESSION EXAM DATE/TIME PROCEDURE ORDERING PROVIDER [id number] 11/02/2020 17:[address] Abdomen/Pelvis w/ IV [id number] -JAME BEST Contrast (IV Onl CPT code 76042 Q9967 Reason For Exam (CT Abdomen/Pelvis w/ IV Contrast (IV Onl) RLQ abd pain, eval for appy Report CLINICAL HISTORY: RLQ abd pain, eval for appy COMPARISON: None Technique: Axial CT images were obtained of the abdomen and pelvis after the uneventful IV administration of 75 mL of Isovue 370 IV contrast. Images were reformatted in coronal and sagittal projections. Oral contrast: Not given FINDINGS: Lung bases: Mild bibasilar atelectasis Liver/Biliary system: No masses, significant fluid collections, or biliary dilatation. Cholelithiasis or focal fundal wall calcification is seen with no clear wall thickening or pericholecystic inflammatory fat stranding. Spleen: Not enlarged. 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 Pancreas: No significant abnormality. Adrenal glands: No significant abnormality. Kidneys: No hydronephrosis or renal calculi are seen. Scattered subcentimeter hypodensities are too small to accurately characterize but likely represent cysts. Bowel: Moderate hiatal hernia is present. Colonic diverticulosis is seen with no evidence of acute diverticulitis. The bowel is of normal caliber throughout without evidence of wall thickening or obstruction. The appendix is normal Mesentery/Intraperitoneum : No intraperitoneal free fluid or air is seen. Mesentery is normal in appearance. Lymph nodes: No lymphadenopathy Computed Tomography Report Vasculature: The abdominal aorta is normal in caliber without evidence of aneurysmal dilatation. 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 Pelvic organs: No masses or other significant abnormalities seen. Soft tissues and Osseous structures: No evidence of fracture. No suspicious osseous lesions. Mild multilevel degenerative changes are seen in the lumbar spine with grade 1 anterolisthesis of L4 on L5. IMPRESSION: 1. No acute inflammatory process is seen in the abdomen or pelvis. The appendix is normal in appearance. 2. Small gallstones or focal fundal wall calcification in the gallbladder with no CT evidence of acute cholecystitis. 3. Colonic diverticulosis with no evidence of acute diverticulitis. 4. Moderate hiatal hernia. 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 Report Dictated on --- Final --- Dictating Physician: MD LYMAN JAMES Signed Date and Time: 11/02/2020 5:59 pm Signed by: MD LYMAN JAMES Transcribed Date and Time: 11/02/2020 6:00 [facility] Work Phone: CT Head WO Contraston 2020 Patient Name: CHAY TEAGUE [facility] ACCESSION EXAM DATE/TIME PROCEDURE ORDERING PROVIDER [id number] 11/02/2020 17:[address] Head or Brain w/o [id number] -GOMBASH, JAME Contrast CPT code 19430 Reason For Exam (CT Head or Brain w/o Contrast) AMS Report CT BRAIN WITHOUT CONTRAST CLINICAL INDICATION: AMS TECHNIQUE: CT scan of the brain without IV contrast. Multiplanar reformations. COMPARISON: February,. FINDINGS: No apparent mass or mass effect, hemorrhage, midline shift or hydrocephalus. No evidence of acute cortical infarct. No abnormal, extra-axial fluid or air collection. Patchy low density in the periventricular and subcortical white matter is nonspecific, but may relate to chronic small vessel ischemic change. Mild, diffuse volume loss. Osseous calvarium grossly intact. IMPRESSION: 1. No acute intracranial findings. 2. Chronic ischemic and atrophic changes. Report Dictated on --- Final --- Dictating Physician: MD WARNER WENDELL Signed Date and Time: 11/02/2020 5:36 pm Signed by: MD WARNER WENDELL Transcribed Date and Time: 11/02/2020 5:37 [facility] Work Phone: [facility], [facility] Incoming Radiology Results From [facility] - 11/02/2020 5:37 PM EST Patient Name: CHAY TEAGUE [facility] ACCESSION EXAM DATE/TIME PROCEDURE ORDERING PROVIDER [id number] 11/02/2020 17:[address] Head or Brain w/o [id number] -GOMBASH, JAME Contrast CPT code 88723 Reason For Exam (CT Head or Brain w/o Contrast) AMS Report CT BRAIN WITHOUT CONTRAST CLINICAL INDICATION: AMS TECHNIQUE: CT scan of the brain without IV contrast. Multiplanar reformations. COMPARISON: February,. FINDINGS: No apparent mass or mass effect, hemorrhage, midline shift or hydrocephalus. No evidence of acute cortical infarct. No abnormal, extra-axial fluid or air collection. Patchy low density in the periventricular and subcortical white matter is nonspecific, but may relate to chronic small vessel ischemic change. Mild, diffuse volume loss. Osseous calvarium grossly intact. IMPRESSION: 1. No acute intracranial findings. 2. Chronic ischemic and atrophic changes. Report Dictated on --- Final --- Dictating Physician: MD WARNER WENDELL Signed Date and Time: 11/02/2020 5:36 pm Signed by: MD WARNER WENDELL Transcribed Date and Time: 11/02/2020 5:37 [facility] Work Phone: CTA Chest W WO (PE study)on 11-02-2020 [id number] ACCESSION EXAM DATE/TIME PROCEDURE ORDERING PROVIDER [id number] 11/02/2020 17:36 EST CTA Chest w/ + w/o [id number] -GOMBASH, JAME Contrast CPT code 68052 Reason For Exam (CTA Chest w/ + w/o Contrast) SOB, left lwg swelling, eval for PE Report CLINICAL HISTORY: Shortness of breath with left-sided leg swelling. COMPARISON: Chest radiograph dated 02/04/2020 Technique: [address] images were obtained of the chest after the uneventful IV administration of 75 mL of Isovue-370. Image acquisition was timed for maximal opacification of the pulmonary arteries. Images were reformatted in coronal and sagittal projections. 3D reformats were generated concurrently by myself on a separate workstation to better visualize the gross vascular anatomy. Pulmonary arteries: There is technically adequate opacification of the pulmonary arteries. No pulmonary embolus is identified. Lungs: Mild dependent atelectasis. No acute infiltrate or area of consolidation. No suspicious pulmonary nodules or masses. The tracheobronchial tree remains patent. Pleura: No pleural effusion Heart/Great vessels: The heart is normal in size with no pericardial effusion. The aorta and pulmonary arteries are normal in caliber. Mediastinum/Shahla: There are no enlarged mediastinal, hilar, or axillary lymph nodes. Thyroid and Esophagus: The visualized thyroid and esophagus are normal. There is a small sliding-type hiatal hernia. Visualized Upper Abdomen: There is mild rim calcifications of the gallbladder. The remaining structures of the upper abdomen are normal. Chest wall/Lower neck: Normal Bones: Normal Computed Tomography Report IMPRESSION: Technically adequate opacification of pulmonary arteries. No pulmonary embolus. Mild dependent atelectasis. No acute infiltrate or effusion. Small sliding-type hiatal hernia. Report Dictated on --- Final --- Dictating Physician: MD JOE YUN ROBERT Signed Date and Time: 11/02/2020 5:50 pm Signed by: MD JOE YUN ROBERT Transcribed Date and Time: 11/02/2020 5:51 [facility] Work Phone: [facility], [facility] Incoming Radiology Results From [facility] - 11/02/2020 5:51 PM EST Patient Name: CHAY TEAGUE [facility] ACCESSION EXAM DATE/TIME PROCEDURE ORDERING PROVIDER [id number] 11/02/2020 17:36 EST CTA Chest w/ + w/o [id number] -JAME BEST Contrast CPT code 44456 Reason For Exam (CTA Chest w/ + w/o Contrast) SOB, left lwg swelling, eval for PE Report CLINICAL HISTORY: Shortness of breath with left-sided leg swelling. COMPARISON: Chest radiograph dated 02/04/2020 Technique: [address] images were obtained of the chest after the uneventful IV administration of 75 mL of Isovue-370. Image acquisition was timed for maximal opacification of the pulmonary arteries. Images were reformatted in coronal and sagittal projections. 3D reformats were generated concurrently by myself on a separate workstation to better visualize the gross vascular anatomy. Pulmonary arteries: There is technically adequate opacification of the pulmonary arteries. No pulmonary embolus is identified. Lungs: Mild dependent atelectasis. No acute infiltrate or area of consolidation. No suspicious pulmonary nodules or masses. The tracheobronchial tree remains patent. Pleura: No pleural effusion Heart/Great vessels: The heart is normal in size with no pericardial effusion. The aorta and pulmonary arteries are normal in caliber. Mediastinum/Shahla: There are no enlarged mediastinal, hilar, or axillary lymph nodes. Thyroid and Esophagus: The visualized thyroid and esophagus are normal. There is a small sliding-type hiatal hernia. Visualized Upper Abdomen: There is mild rim calcifications of the gallbladder. The remaining structures of the upper abdomen are normal. Chest wall/Lower neck: Normal Bones: Normal Computed Tomography Report IMPRESSION: Technically adequate opacification of pulmonary arteries. No pulmonary embolus. Mild dependent atelectasis. No acute infiltrate or effusion. Small sliding-type hiatal hernia. Report Dictated on --- Final --- Dictating Physician: MD JOE YUN ROBERT Signed Date and Time: 11/02/2020 5:50 pm Signed by: MD JOE YUN ROBERT Transcribed Date and Time: 11/02/2020 5:[address] [facility] Work Phone: [phone] Comprehensive Metabolic Pane skylar 11-02-2020 Albumin [Mass/Vol] 3.8 g/dL 3.5 - 5 g/dL [facility] Work Phone: [phone] ALP [Catalytic activity/Vol] 113 U/L 38 - 126 U/L [facility] Work Phone: [phone] ALT [Catalytic activity/Vol] 22 U/L 0 - 34 U/L [facility] Work Phone: [phone] Comment on above: The ALT test is perf ormed by an updated assay method. Please note that the reference intervals have been changed and are now sex specific. Anion gap [Moles/Vol] 7 mmol/L [facility] Work Phone: [phone] AST [Catalytic activity/Vol] 42 U/L 15 - 46 U/L [facility] Work Phone: [phone] Bilirubin Ql (U) 0.5 mg/dL 0.2 - 1.3 mg/dL [facility] Work Phone: [phone] Calcium [Mass/Vol] 9.1 mg/dL 8.4 - 10. 4 mg/dL [facility] Work Phone: Chloride [Moles/Vol] 102 mmol/L 98 - 10 7 mmol/L [facility] Work Phone: [phone] CO2 [Moles/Vol] 29 mmol/L 22 - 30 mmol/L [facility] Work Phone: [phone] Creatinine [Mass/Vol] 1.02 mg/dL 0.52 - 1.25 mg/dL [facility] Work Phone: [phone] EGFR IF NonAfrican [place] 52.8 mL/min Abnormal >60 [facility] Work Phone: [phone] Comment on above: KDIGO guidelines pro vide the following GFR categories: Stage GFR(ml/min/1.73 m2) Terms G1 >=90 Normal or high G2 60-89 Mildly decreased* G3a 45-59 Mildly to moderately decreased G3b 30-44 Moderately to severely decreased G4 15-29 Severely decreased G5 <15 Kidney failure *Relative to young adult level. In the absence of evidence of kidney damage, neither GFR category G1 nor G2 fulfill the criteria for CKD. The CKD-EPI equation is validated in individuals 18 years of age and older. Currently the best equation for estimating glomerular filtration rate (GFR) from serum creatinine in children is the Bedside Kerr equation. It is less accurate in patients with extremes of muscle mass, restriction of dietary protein, ingestion of creatine, extra-renal metabolism of creatinine, or treatment with medications that affect renal tubular creatinine secretion. GFR/1.73 sq M predicted among blacks MDRD (S/P/Bld) [Vol rate/Area] 61.2 mL/min/{1.73_m2} >60 [facility] Work Phone: [phone] Glucose [Mass/Vol] 100 mg/dL 70 - 100 mg/dL [facility] Work Phone: [phone] Interpretation and review of laboratory results Abnormal [facility] Work Phone: [phone] Potassium [Moles/Vol] 3.3 mmol/L Low 3.5 - 5.1 mmol/L [facility] Work Phone: [phone] Protein [Mass/Vol] 7.0 g/dL 6.3 - 8.2 g/dL [facility] Work Phone: [phone] Sodium [Moles/Vol] 138 mmol/L 135 - 145 mmol/L [facility] Work Phone: [phone] Urea nitrogen [Mass/Vol] 16 mg/dL 7 - 20 mg/dL [facility] Work Phone: [phone] Hemogram (CBC) w/Auto Diffon 11-02-2020 Absolute Baso # 0.1 10*3/uL 0 - 0.2 10*3/uL [facility] Work Phone: [phone] Absolute Neut # 5.4 10*3/uL 1.8 - 7 10*3/uL [facility] Work Phone: [phone]() 222 Basophils/100 WBC (Bld) 0.7 % 0 - 2 % [facility] Work Phone: () 222 Eosinophils (Bld) [#/Vol] 0.3 10*3/uL 0 - 0.5 10*3/uL [facility] Work Phone: [phone]() 222 Eosinophils/100 WBC (Bld) 3.2 % 1 - 6 % [facility] Work Phone: 1() 222 Erythrocyte distribution width (RBC) [Ratio] 14.7 % High 11.5 - 14.5 % [facility] Work Phone: 1() 222 Granulocytes/100 WBC (Bld) 54.6 % 40 - 80 % [facility] Work Phone: () 222 Hematocrit (Bld) [Volume fraction] 40.5 % 35 - 47 % [facility] Work Phone: ) 222 Hemoglobin (Bld) [Mass/Vol] 13.4 g/dL 11.7 - 16 g/dL [facility] Work Phone: [phone] Interpretation and review of laboratory results Abnormal [facility] Work Phone: [phone]() 222 Lymphocytes (Bld) [#/Vol] 3.2 10*3/uL 1 - 4.3 10*3/uL [facility] Work Phone: 1() 222 Lymphocytes/100 WBC (Bld) 32.4 % 20 - 40 % [facility] Work Phone: [phone] MCH (RBC) [Entitic mass] 29.7 pg 26 - 34 pg [facility] Work Phone: [phone] MCHC (RBC) [Mass/Vol] 33.2 % 32 - 36 % [facility] Work Phone: [phone] MCV (RBC) [Entitic vol] 89.5 fL 79 - 98 fL [facility] Work Phone: [phone]() [phone] Monocytes (Bld) [#/Vol] 0.9 10*3/uL High 0 - 0.8 10*3/uL [facility] Work Phone: [phone] Monocytes/100 WBC (Bld) 9.1 % 2 - 10 % [facility] Work Phone: 1() Platelet mean volume (Bld) [Entitic vol] 9.0 fL 7.4 - 10.4 fL [facility] Work Phone: 1() Platelets (Bld) [#/Vol] 295 10*3/uL 140 - 440 10*3/uL [facility] Work Phone: [phone] RBC (Bld) [#/Vol] 4.53 10*6/uL 3.8 - 5.2 10*6/uL [facility] Work Phone: 1() WBC (Bld) [#/Vol] 9.9 10*3/uL 3.6 - 10.7 10*3/uL [facility] Work Phone: [phone] Performed by [facility], [address] [place], [place] [id number] [place], [place] [address]A Work Phone: [phone] Lactic Acid, Plasmaon 2020 Lactate [Moles/Vol] 1.4 mmol/L 0.7 - 2 mmol/L [facility] Work Phone: [phone] Otheron 11-02-2020 Test Performed by [facility], [address] [place], [place] [id number] [place], [place] [address] Work Phone: [phone] Test Performed by [facility], [address] [place], [place] [id number] [place], [place] [address] Work Phone: [phone] Protime-INRon 11-02-2020 INR Coag (PPP) [Relative time] {INR} [facility] Work Phone: [phone] Comment on above: Recommended Anticoag ulant Therapy: SEE BELOW ----- INR of 2.0 - 3.0 : - Prophylaxis of Venous Thrombosis (high-risk surgery) - Treatment of Venous Thrombosis - Treatment of Pulmonary Embolism (Includes tissue heart valves, Acute Myocardial Infarction to prevent systemic embolism, Valvular Heart Disease, and Atrial Fibrillation) ----- INR of 2.5 - 3.5 : - Mechanical Prosthetic Valves (high risk) - If oral anticoagulant therapy is used to prevent Myocardial Infarction PT Coag (PPP) [Time] 9.8 s 9 - 12 s [facility] Work Phone: Comment on above: . Test Performed by [facility], [address] [place], [place] [address] [facility] Work Phone: Troponin x1on 11-02-2020 Troponin I.cardiac [Mass/Vol] ng/mL 0 - 0.034 ng/mL [facility] Work Phone: Comment on above: . Culture, Urineon 03-08-2020 Bacteria identified Cx Nom (U) No growth (<1,000 CFU/ml). [place], [place] Test Performed by [facility], [address] [place] [address] [place], [place] CBCon 03-07-2020 Erythrocyte distribution width (RBC) [Ratio] 15.4 % High 11.5 - 14.5 % [place] Hematocrit (Bld) [Volume fraction] 38.1 % 35 - 47 % [place] Hemoglobin (Bld) [Mass/Vol] 12.7 g/dL 11.7 - 16 g/dL [place] Interpretation and review of laboratory results Abnormal [place] MCH (RBC) [Entitic mass] 29.9 pg 26 - 34 pg [place] MCHC (RBC) [Mass/Vol] 33.4 % 32 - 36 % [place] MCV (RBC) [Entitic vol] 89.5 fL 79 - 98 fL [place] Platelet mean volume (Bld) [Entitic vol] 8.7 fL 7.4 - 10.4 fL [place] Platelets (Bld) [#/Vol] 248 10*3/uL 140 - 440 10*3/uL [place] RBC (Bld) [#/Vol] 4.26 10*6/uL 3.8 - 5.2 10*6/uL [place] WBC (Bld) [#/Vol] 6.2 10*3/uL 3.6 - 10.7 10*3/uL [place] Test Performed by [facility], [address], [place], [place] [address] [place] Comprehensive Metabolic Pane l w/ Reflex to MGon 03-07-2020 Albumin [Mass/Vol] 3.5 g/dL 3.5 - 5 g/dL [place] ALP [Catalytic activity/Vol] 125 U/L 38 - 126 U/L [place] ALT [Catalytic activity/Vol] 31 U/L 0 - 34 U/L [place] Comment on above: The ALT test is perf ormed by an updated assay method. Please note that the reference intervals have been changed and are now sex specific. Anion gap [Moles/Vol] 10 mmol/L [place], [place] AST [Catalytic activity/Vol] 45 U/L 15 - 46 U/L [place] Bilirubin Ql (U) 0.6 mg/dL 0.2 - 1.3 mg/dL [place] Calcium [Mass/Vol] 8.3 mg/dL Low 8.4 - 10. 4 mg/dL [place] Chloride [Moles/Vol] 107 mmol/L 98 - 10 7 mmol/L [place] CO2 [Moles/Vol] 27 mmol/L 22 - 30 mmol/L [place] Creatinine [Mass/Vol] 0.76 mg/dL 0.52 - 1.25 mg/dL [place] EGFR IF NonAfrican [place] 75.7 mL/min >60 [place] Comment on above: KDIGO guidelines pro vide the following GFR categories: Stage GFR(ml/min/1.73 m2) Terms G1 >=90 Normal or high G2 60-89 Mildly decreased* G3a 45-59 Mildly to moderately decreased G3b 30-44 Moderately to severely decreased G4 15-29 Severely decreased G5 <15 Kidney failure *Relative to young adult level. In the absence of evidence of kidney damage, neither GFR category G1 nor G2 fulfill the criteria for CKD. The CKD-EPI equation is validated in individuals 18 years of age and older. Currently the best equation for estimating glomerular filtration rate (GFR) from serum creatinine in children is the Bedside Kerr equation. It is less accurate in patients with extremes of muscle mass, restriction of dietary protein, ingestion of creatine, extra-renal metabolism of creatinine, or treatment with medications that affect renal tubular creatinine secretion. GFR/1.73 sq M predicted among blacks MDRD (S/P/Bld) [Vol rate/Area] 87.8 mL/min/{1.73_m2} >60 [facility] [employer] [place], [place] Glucose [Mass/Vol] 101 mg/dL High 70 - 100 mg/dL [facility], [place] Potassium [Moles/Vol] 3.7 mmol/L 3.5 - 5.1 mmol/L [facility], [place] Protein [Mass/Vol] 6.6 g/dL 6.3 - 8.2 g/dL [facility], [place] Sodium [Moles/Vol] 144 mmol/L 135 - 145 mmol/L [facility], [place] Urea nitrogen [Mass/Vol] 15 mg/dL 7 - 20 mg/dL [facility], [place] ECHO Complete 2D W Doppler W Coloron 03-07-2020 TRANSTHORACIC ECHOCARDIOGRAM PATIENT: Chay Teague STUDY DATE: 03/07/2020 : 1945 AGE: 74 HT/WT: 160 cm (63 90.7 kg in) (199.6 lb) GENDER: F BP: 160 / 101 LOCATION: [facility] PATIENT Observation [facility] STATUS: *ORDERING PHYSICIAN: * Delia Chavez *READING PHYSICIAN: * John Whitlock MD, *DESIGN DRAFTER CHIEF: * Skye Garcia [facility] INDICATIONS: TIA CONCLUSIONS SUMMARY: 1. Left ventricle: Systolic function is hyperdynamic by the biplane method of disks. The estimated ejection fraction is 81%. 2. Right ventricle: Systolic function is normal. 3. Technically difficult study. No obvious valve disease. STUDY DATA: Complete transthoracic echocardiogram. Procedure: Image quality was poor. The study was technically limited due to body habitus, respiratory interference, and off axis. Intravenous imaging enhancement (Definity) was administered to opacify the chamber. Definity lot #: [id number]. M-mode, complete 2D, complete spectral Doppler, and color flow Doppler images were acquired and archived for permanent storage and are available for subsequent review. Study status: Routine. Patient status: Observation. FINDINGS LEFT VENTRICLE: The cavity size is normal. Wall thickness is normal. Systolic function is hyperdynamic by the biplane method of disks. The estimated ejection fraction is 81%. There are no regional wall motion abnormalities. RIGHT VENTRICLE: Not well visualized. The cavity size is normal. Systolic function is normal. Right ventricular systolic pressure is within the normal range. VENTRICULAR SEPTUM: There is no evidence of a ventricular septal defect. LEFT ATRIUM: Not well visualized. The atrium is normal in size. RIGHT ATRIUM: Not well visualized. The atrium is normal in size. ATRIAL SEPTUM: Not well visualized. Color Doppler shows no shunt. MITRAL VALVE: Not well visualized. Structurally normal valve. Doppler: There is no regurgitation. The peak diastolic gradient is 3 mm Hg. AORTIC VALVE: Not well visualized. Structurally normal valve. Trileaflet. Doppler: There is no regurgitation. Dimensionless index: 0.88. The valve area by the velocity-time integral method is 2.9 cm^2. The valve area index by the velocity-time integral method is 1.4 cm^2/m^2. The mean systolic gradient is 6 mm Hg. The peak systolic gradient is 11 mm Hg. The peak systolic velocity is 1.7 m/sec. TRICUSPID VALVE: Not well visualized. Structurally normal valve. Doppler: There is trivial, less than 1+ regurgitation. PULMONIC VALVE: Not well visualized. Structurally normal valve. Doppler: There is trivial, less than 1+ regurgitation. AORTA: The aorta is normal. PULMONARY ARTERY: Main pulmonary artery: Normal. PERICARDIUM: There is no pericardial effusion. SYSTEMIC VEINS: Inferior vena cava: The vessel is normal. The IVC collapses by greater than 50% with inspiration. Hepatic veins: The flow pattern is normal. Measurements Value 06/04/2018 Reference Aortic root ID 2.8 cm <4.2 Aortic root ID, STJ, ED 3.1 cm 2.0 - 3.2 Aortic root ID/bsa, STJ, 1.5 cm/m^2 1.1 - 1.9 ED Value 06/04/2018 Reference Ascending aorta ID 3.1 cm 1.9 - 3.5 Ascending aorta ID/bsa, 1.5 cm/m^2 1.0 - 2.2 A-P Ascending aorta ID, A-P, S 3.1 cm --------- Ascending aorta ID/bsa, 1.5 cm/m^2 --------- A-P, S IVC Value 06/04/2018 Reference ID 1.7 cm --------- Left ventricle Value 06/04/2018 Reference LV ID, ED 4.1 cm 3.8 - 5.2 LV ID, ES 2.8 cm 2.2 - 3.5 LV ID/bsa, ED (L) 2.0 cm/m^2 2.3 - 3.1 LV ID/bsa, ES 1.4 cm/m^2 1.3 - 2.1 LV PW thickness, ED 0.8 cm 0.6 - 0.9 LV PW/LV ID ratio, ED 0.2 --------- LV wall mass 122 g 66 - 150 LV wall mass/bsa 60 g/m^2 44 - 88 Stroke volume/bsa, 1-p A2C 38.4 ml/m^2 --------- LV end-diastolic volume, 54 ml 58 48 - 140 1-p A4C LV end-systolic volume, 14 ml 16 12 - 60 1-p A4C LV end-diastolic volume, 72 ml 46 - 106 2-p LV end-systolic volume, 14 ml 14 - 42 2-p LV ejection fraction, 2-p (H) 81 % 54 - 74 LV E/e', lateral 10.9 --------- LV E/e', medial 10.1 --------- LV E/e', average 10.5 --------- Ventricular septum Value 06/04/2018 Reference IVS thickness, ED (H) 1.1 cm 0.6 - 0.9 LVOT Value 06/04/2018 Reference LVOT ID, A-P 2.1 cm --------- LVOT mean velocity, S 1 m/sec --------- LVOT peak gradient, S 7 mm Hg --------- Stroke volume (SV), LVOT 102 ml --------- DP Stroke index (SV/bsa), 50 ml/m^2 --------- LVOT DP Aortic valve Value 06/04/2018 Reference Aortic valve peak 1.7 m/sec --------- velocity, S Aortic valve mean 1.2 m/sec --------- velocity, S Aortic mean gradient, S 6 mm Hg --------- Aortic peak gradient, S 11 mm Hg --------- DI 0.88 --------- Aortic valve area, VTI 2.9 cm^2 --------- Aortic valve area/bsa, VTI 1.4 cm^2/m^2 --------- Left atrium Value 06/04/2018 Reference LA volume/bsa, ES, 2-p 21 ml/m^2 16 - 34 Mitral valve Value 06/04/2018 Reference Mitral E-wave peak 0.9 m/sec --------- velocity Mitral A-wave peak 1.1 m/sec --------- velocity Mitral deceleration time 200 ms --------- Mitral peak gradient, D 3 mm Hg --------- Mitral E/A ratio, peak 0.8 --------- Tricuspid valve Value 06/04/2018 Reference Tricuspid peak RV-RA 25 mm Hg --------- gradient Right atrium Value 06/04/2018 Reference RA area, ES, A4C 14 cm^2 10 - 18 Right ventricle Value 06/04/2018 Reference RV ID, minor axis, ED, A4C 3.9 cm 2.5 - 4.1 base RV ID, minor axis, ED, A4C (H) 3.7 cm 1.9 - 3.5 mid TAPSE, 2D 2.2 cm 1.7 - 3.1 Legend: (L) and (H) john values outside specified reference range. Electronically signed by John Whitlock MD, [facility] 03/07/2020 12:07 Prior Signatures: [facility] Incoming Cardiology Results From [facility] - 03/07/2020 12:08 PM EDT TRANSTHORACIC ECHOCARDIOGRAM PATIENT: Chay Teague STUDY DATE: 03/07/2020 : 1945 AGE: 74 HT/WT: 160 cm (63 90.7 kg in) (199.6 lb) GENDER: F BP: 160 / 101 LOCATION: [facility] PATIENT Observation [facility] STATUS: *ORDERING PHYSICIAN: * Delia Chavez *READING PHYSICIAN: * John Whitlock MD, *DESIGN DRAFTER CHIEF: * Skye Garcia [facility] INDICATIONS: TIA CONCLUSIONS SUMMARY: 1. Left ventricle: Systolic function is hyperdynamic by the biplane method of disks. The estimated ejection fraction is 81%. 2. Right ventricle: Systolic function is normal. 3. Technically difficult study. No obvious valve disease. STUDY DATA: Complete transthoracic echocardiogram. Procedure: Image quality was poor. The study was technically limited due to body habitus, respiratory interference, and off axis. Intravenous imaging enhancement (Definity) was administered to opacify the chamber. Definity lot #: [id number]. M-mode, complete 2D, complete spectral Doppler, and color flow Doppler images were acquired and archived for permanent storage and are available for subsequent review. Study status: Routine. Patient status: Observation. FINDINGS LEFT VENTRICLE: The cavity size is normal. Wall thickness is normal. Systolic function is hyperdynamic by the biplane method of disks. The estimated ejection fraction is 81%. There are no regional wall motion abnormalities. RIGHT VENTRICLE: Not well visualized. The cavity size is normal. Systolic function is normal. Right ventricular systolic pressure is within the normal range. VENTRICULAR SEPTUM: There is no evidence of a ventricular septal defect. LEFT ATRIUM: Not well visualized. The atrium is normal in size. RIGHT ATRIUM: Not well visualized. The atrium is normal in size. ATRIAL SEPTUM: Not well visualized. Color Doppler shows no shunt. MITRAL VALVE: Not well visualized. Structurally normal valve. Doppler: There is no regurgitation. The peak diastolic gradient is 3 mm Hg. AORTIC VALVE: Not well visualized. Structurally normal valve. Trileaflet. Doppler: There is no regurgitation. Dimensionless index: 0.88. The valve area by the velocity-time integral method is 2.9 cm^2. The valve area index by the velocity-time integral method is 1.4 cm^2/m^2. The mean systolic gradient is 6 mm Hg. The peak systolic gradient is 11 mm Hg. The peak systolic velocity is 1.7 m/sec. TRICUSPID VALVE: Not well visualized. Structurally normal valve. Doppler: There is trivial, less than 1+ regurgitation. PULMONIC VALVE: Not well visualized. Structurally normal valve. Doppler: There is trivial, less than 1+ regurgitation. AORTA: The aorta is normal. PULMONARY ARTERY: Main pulmonary artery: Normal. PERICARDIUM: There is no pericardial effusion. SYSTEMIC VEINS: Inferior vena cava: The vessel is normal. The IVC collapses by greater than 50% with inspiration. Hepatic veins: The flow pattern is normal. Measurements Value 06/04/2018 Reference Aortic root ID 2.8 cm <4.2 Aortic root ID, STJ, ED 3.1 cm 2.0 - 3.2 Aortic root ID/bsa, STJ, 1.5 cm/m^2 1.1 - 1.9 ED Value 06/04/2018 Reference Ascending aorta ID 3.1 cm 1.9 - 3.5 Ascending aorta ID/bsa, 1.5 cm/m^2 1.0 - 2.2 A-P Ascending aorta ID, A-P, S 3.1 cm --------- Ascending aorta ID/bsa, 1.5 cm/m^2 --------- A-P, S IVC Value 06/04/2018 Reference ID 1.7 cm --------- Left ventricle Value 06/04/2018 Reference LV ID, ED 4.1 cm 3.8 - 5.2 LV ID, ES 2.8 cm 2.2 - 3.5 LV ID/bsa, ED (L) 2.0 cm/m^2 2.3 - 3.1 LV ID/bsa, ES 1.4 cm/m^2 1.3 - 2.1 LV PW thickness, ED 0.8 cm 0.6 - 0.9 LV PW/LV ID ratio, ED 0.2 --------- LV wall mass 122 g 66 - 150 LV wall mass/bsa 60 g/m^2 44 - 88 Stroke volume/bsa, 1-p A2C 38.4 ml/m^2 --------- LV end-diastolic volume, 54 ml 58 48 - 140 1-p A4C LV end-systolic volume, 14 ml 16 12 - 60 1-p A4C LV end-diastolic volume, 72 ml 46 - 106 2-p LV end-systolic volume, 14 ml 14 - 42 2-p LV ejection fraction, 2-p (H) 81 % 54 - 74 LV E/e', lateral 10.9 --------- LV E/e', medial 10.1 --------- LV E/e', average 10.5 --------- Ventricular septum Value 06/04/2018 Reference IVS thickness, ED (H) 1.1 cm 0.6 - 0.9 LVOT Value 06/04/2018 Reference LVOT ID, A-P 2.1 cm --------- LVOT mean velocity, S 1 m/sec --------- LVOT peak gradient, S 7 mm Hg --------- Stroke volume (SV), LVOT 102 ml --------- DP Stroke index (SV/bsa), 50 ml/m^2 --------- LVOT DP Aortic valve Value 06/04/2018 Reference Aortic valve peak 1.7 m/sec --------- velocity, S Aortic valve mean 1.2 m/sec --------- velocity, S Aortic mean gradient, S 6 mm Hg --------- Aortic peak gradient, S 11 mm Hg --------- DI 0.88 --------- Aortic valve area, VTI 2.9 cm^2 --------- Aortic valve area/bsa, VTI 1.4 cm^2/m^2 --------- Left atrium Value 06/04/2018 Reference LA volume/bsa, ES, 2-p 21 ml/m^2 16 34 Mitral valve Value 06/04/2018 Reference Mitral E-wave peak 0.9 m/sec --------- velocity Mitral A-wave peak 1.1 m/sec --------- velocity Mitral deceleration time 200 ms --------- Mitral peak gradient, D 3 mm Hg --------- Mitral E/A ratio, peak 0.8 --------- Tricuspid valve Value 06/04/2018 Reference Tricuspid peak RV-RA 25 mm Hg --------- gradient Right atrium Value 06/04/2018 Reference RA area, ES, A4C 14 cm^2 10 - 18 Right ventricle Value 06/04/2018 Reference RV ID, minor axis, ED, A4C 3.9 cm 2.5 - 4.1 base RV ID, minor axis, ED, A4C (H) 3.7 cm 1.9 - 3.5 mid TAPSE, 2D 2.2 cm 1.7 - 3.1 Legend: (L) and (H) john values outside specified reference range. Electronically signed by John Whitlock MD, [facility] 03/07/2020 12:07 Prior Signatures: [facility] [place], [place] EKG 12 Leadon 03-07-2020 [place] [employer] Test Date: 2020-03-06 Pat Name: Chay Teague Department: Room: 453 Gender: F Director Business Integration: 2014 : 1945 Requested By: EMILY REESE Order Number: [id number] Joan MD: Niels Reese Measurements Intervals [place] Rate: 95 P: 70 AK: 176 QRS: -36 QRSD: 120 T: 45 QT: 388 QTc: 488 Interpretive Statements SINUS RHYTHM PROBABLE LEFT ATRIAL ABNORMALITY IVCD, CONSIDER ATYPICAL RBBB Compared to ECG 03/06/2017 15:56:33 No significant changes Electronically Signed On 03-07-2020 16:39:39 EDT by Niels Reese [place], [place], [facility] Incoming Cardiology Results From [facility] - 03/07/2020 4:40 PM EDT [facility] Test Date: 2020-03-06 Pat Name: Chay Teague Department: Room: [facility] Gender: F Director Business Integration: 2014 : 1945 Requested By: EMILY REESE Order Number: [id number] Reading MD: Niels Reese Measurements Intervals [place] Rate: 95 P: 70 AK: 176 QRS: -36 QRSD: 120 T: 45 QT: 388 QTc: 488 Interpretive Statements SINUS RHYTHM PROBABLE LEFT ATRIAL ABNORMALITY IVCD, CONSIDER ATYPICAL RBBB Compared to ECG 03/06/2017 15:56:33 No significant changes Electronically Signed On 03-07-2020 16:39:39 EDT by Niels Reese [place], [place] FOLATEon 03-07-2020 Folate 18.4 ng/mL 2.8 - 20 ng/mL [place] Hemoglobin A1con 03-07-2020 eAG 111 mg/dL [place] HbA1c (Bld) [Mass fraction] 5.5 % 4 - 5.7 % [place] Comment on above: --HgbA1C levels may not be accurate in patients who have renal disease, received recent blood transfusions, are anemic, or who have dyshemoglobinemia. Test Performed by [facility], [address] [place], [place] [address] [place], [place] Lipid panel - fastingon 02-20 Cholesterol [Mass/Vol] 193 mg/dL <200 [place], [place] Cholesterol in HDL [Mass/Vol] 56 mg/dL 40 - 60 mg/dL [place], [place] Cholesterol in LDL [Mass/Vol] 107 mg/dL Abnormal <100 [place] Cholesterol.total/Chol esterol in HDL [Mass ratio] 3 {ratio} [place], [place] Comment on above: Ref Range: < 3 Low Risk for CHD 3-6 Mod Risk for CHD > 6 High Risk for CHD Triglyceride [Mass/Vol] 148 mg/dL <150 [facility], [place] MRA head without contrast (R [facility] IMAGING OBTAIN IN THE LAST 2 yrs, to determine indication )on 03-07-2020 Patient Name: CHAY TEAGUE ---MRI--- Exam Date/Time 03/07/2020 11:13:52 EDT Exam MRA Head w/o Contrast Ordering Physician DELIA PIÑA Accession Number [id number] CPT4 Codes 54203 () Reason For Exam acute confusion Report MRI BRAIN: CLINICAL INDICATION: Confusion TECHNIQUE: Multisequence MR images of the referring were performed including axial diffusion-weighted, T1-weighted and T2-weighted images. The study was then terminated due to significant patient motion and poor patient tolerance of the examination. Post contrast images were not obtained. COMPARISON: CT from 03/06/2020 FINDINGS: Ventricular system and Extra-axial spaces: Generalized enlargement of the ventricles and sulci is noted without extracerebral collection with mass effect. No definite acute infarction on the diffusion-weighted images. The ramos- white matter differentiation is grossly intact, though the evaluation of this is significantly limited. No midline shift. No obvious opacification in the paranasal sinuses or mastoid air cells. IMPRESSION: Significantly limited study. No definite acute infarct. Mild cerebral volume loss. Consider repeat imaging when the patient's condition tolerates. MR ARTERIOGRAPHY INTRACRANIAL: CLINICAL INDICATION: Acute confusion TECHNIQUE: Three-dimensional gradient echo intracranial MRA sequence was performed. Maximum intensity projection images were created various orientations. COMPARISON: None. FINDINGS: Limited by patient motion. Distal internal carotid arteries: Normal Anterior cerebral arteries: Normal Middle cerebral arteries: Normal Distal vertebral arteries: Hypoplastic distal left vertebral artery. Basilar artery: Normal Posterior cerebral arteries: Normal Anterior communicating artery: Normal Posterior communicating arteries: Normal Aneurysm or vascular malformation: None identified. IMPRESSION: Limited study. No definite intracranial arterial occlusion. Report Dictated on --- Final --- Dictating Physician: MD GRACIA NICHOLAS Signed Date and Time: 03/07/2020 12:13 pm Signed by: MD GRACIA NICHOLAS Transcribed Date and Time: 03/07/2020 12:14 [place], [facility] Incoming Radiology Results From [facility] - 03/07/2020 12:14 PM EDT Patient Name: CHAY TEAGUE ---MRI--- Exam Date/Time 03/07/2020 11:13:52 EDT Exam MRA Head w/o Contrast Ordering Physician DELIA PIÑA Accession Number [id number] CPT4 Codes 72228 () Reason For Exam acute confusion Report MRI BRAIN: CLINICAL INDICATION: Confusion TECHNIQUE: Multisequence MR images of the referring were performed including axial diffusion-weighted, T1-weighted and T2-weighted images. The study was then terminated due to significant patient motion and poor patient tolerance of the examination. Post contrast images were not obtained. COMPARISON: CT from 03/06/2020 FINDINGS: Ventricular system and Extra-axial spaces: Generalized enlargement of the ventricles and sulci is noted without extracerebral collection with mass effect. No definite acute infarction on the diffusion-weighted images. The ramos- white matter differentiation is grossly intact, though the evaluation of this is significantly limited. No midline shift. No obvious opacification in the paranasal sinuses or mastoid air cells. IMPRESSION: Significantly limited study. No definite acute infarct. Mild cerebral volume loss. Consider repeat imaging when the patient's condition tolerates. MR ARTERIOGRAPHY INTRACRANIAL: CLINICAL INDICATION: Acute confusion TECHNIQUE: Three-dimensional gradient echo intracranial MRA sequence was performed. Maximum intensity projection images were created various orientations. COMPARISON: None. FINDINGS: Limited by patient motion. Distal internal carotid arteries: Normal Anterior cerebral arteries: Normal Middle cerebral arteries: Normal Distal vertebral arteries: Hypoplastic distal left vertebral artery. Basilar artery: Normal Posterior cerebral arteries: Normal Anterior communicating artery: Normal Posterior communicating arteries: Normal Aneurysm or vascular malformation: None identified. IMPRESSION: Limited study. No definite intracranial arterial occlusion. Report Dictated on --- Final --- Dictating Physician: MD GRACIA NICHOLAS Signed Date and Time: 03/07/2020 12:13 pm Signed by: MD GRACIA NICHOLAS Transcribed Date and Time: 03/07/2020 12:14 [place], [place] MRI brain with and without c ontrast (REVIEW IMAGING RECORDS IN THE LAST 2 YRS to determine INDICATION prior to oder )on 03-07-2020 [facility], [facility] Incoming Radiology Results From [facility] - 03/07/2020 12:14 PM EDT Patient Name: CHAY TEAGUE ---MRI--- Exam Date/Time 03/07/2020 11:13:30 EDT Exam MRI Brain w/ + w/o Contrast Ordering Physician DELIA PIÑA Accession Number [id number] CPT4 Codes 48896 () Reason For Exam acute confusion Report MRI BRAIN: CLINICAL INDICATION: Confusion TECHNIQUE: Multisequence MR images of the referring were performed including axial diffusion-weighted, T1-weighted and T2-weighted images. The study was then terminated due to significant patient motion and poor patient tolerance of the examination. Post contrast images were not obtained. COMPARISON: CT from 03/06/2020 FINDINGS: Ventricular system and Extra-axial spaces: Generalized enlargement of the ventricles and sulci is noted without extracerebral collection with mass effect. No definite acute infarction on the diffusion-weighted images. The ramos- white matter differentiation is grossly intact, though the evaluation of this is significantly limited. No midline shift. No obvious opacification in the paranasal sinuses or mastoid air cells. IMPRESSION: Significantly limited study. No definite acute infarct. Mild cerebral volume loss. Consider repeat imaging when the patient's condition tolerates. MR ARTERIOGRAPHY INTRACRANIAL: CLINICAL INDICATION: Acute confusion TECHNIQUE: Three-dimensional gradient echo intracranial MRA sequence was performed. Maximum intensity projection images were created various orientations. COMPARISON: None. FINDINGS: Limited by patient motion. Distal internal carotid arteries: Normal Anterior cerebral arteries: Normal Middle cerebral arteries: Normal Distal vertebral arteries: Hypoplastic distal left vertebral artery. Basilar artery: Normal Posterior cerebral arteries: Normal Anterior communicating artery: Normal Posterior communicating arteries: Normal Aneurysm or vascular malformation: None identified. IMPRESSION: Limited study. No definite intracranial arterial occlusion. Report Dictated on --- Final --- Dictating Physician: MD GRACIA NICHOLAS Signed Date and Time: 03/07/2020 12:13 pm Signed by: MD GRACIA NICHOLAS Transcribed Date and Time: 03/07/2020 12:14 [place], [place] Patient Name: CHAY TEAGUE ---MRI--- Exam Date/Time 03/07/2020 11:13:30 EDT Exam MRI Brain w/ + w/o Contrast Ordering Physician DELIA PIÑA Accession Number [id number] CPT4 Codes 87877 () Reason For Exam acute confusion Report MRI BRAIN: CLINICAL INDICATION: Confusion TECHNIQUE: Multisequence MR images of the referring were performed including axial diffusion-weighted, T1-weighted and T2-weighted images. The study was then terminated due to significant patient motion and poor patient tolerance of the examination. Post contrast images were not obtained. COMPARISON: CT from 03/06/2020 FINDINGS: Ventricular system and Extra-axial spaces: Generalized enlargement of the ventricles and sulci is noted without extracerebral collection with mass effect. No definite acute infarction on the diffusion-weighted images. The ramos- white matter differentiation is grossly intact, though the evaluation of this is significantly limited. No midline shift. No obvious opacification in the paranasal sinuses or mastoid air cells. IMPRESSION: Significantly limited study. No definite acute infarct. Mild cerebral volume loss. Consider repeat imaging when the patient's condition tolerates. MR ARTERIOGRAPHY INTRACRANIAL: CLINICAL INDICATION: Acute confusion TECHNIQUE: Three-dimensional gradient echo intracranial MRA sequence was performed. Maximum intensity projection images were created various orientations. COMPARISON: None. FINDINGS: Limited by patient motion. Distal internal carotid arteries: Normal Anterior cerebral arteries: Normal Middle cerebral arteries: Normal Distal vertebral arteries: Hypoplastic distal left vertebral artery. Basilar artery: Normal Posterior cerebral arteries: Normal Anterior communicating artery: Normal Posterior communicating arteries: Normal Aneurysm or vascular malformation: None identified. IMPRESSION: Limited study. No definite intracranial arterial occlusion. Report Dictated on --- Final --- Dictating Physician: MD GRACIA NICHOLAS Signed Date and Time: 03/07/2020 12:13 pm Signed by: MD GRACIA NICHOLAS Transcribed Date and Time: 03/07/2020 12:14 [facility], [place] Otheron 03-07-2020 Test Performed by [facility], [address], [place], [place] [id number] [place] [address], [place] Interpretation and review of laboratory results Abnormal [place], [place] Test Performed by [facility], [address], [place] TSH without Reflexon 020 TSH Qn 2.668 u[IU]/mL 0.465 - 4.68 u[IU]/mL [place] Test Performed by [facility], [address] [place], [address] Troponinon 03-07-2020 Troponin I.cardiac [Mass/Vol] 0.013 ng/mL 0 - 0.034 ng/mL [place] Comment on above: . Test Performed by [facility], [address], [address] Vitamin B12on 03-07-2020 Cobalamin (Vitamin B12) [Mass/Vol] 343 pg/mL 239 - 931 pg/mL [place] Add On Lab Teston 03-06-2020 Sodium [Moles/Vol] Accepted [place], [place] Comment on above: Specimen available & acceptable for analysis. Test Performed by [facility], [address] , [address] Ammoniaon 03-06-2020 Ammonia (P) [Mass/Vol] 13 umol/L 9 - 3 0 umol/L [place] Test Performed by [facility], [address] [place], [address] Brain Natriuretic Peptideon 03-06-2020 Natriuretic peptide B (Bld) [Mass/Vol] 65 pg/mL 0 - 450 pg/mL [place] CBC Auto Differentialon 02-20 Absolute Baso # 0.1 10*3/uL 0 - 0.2 10*3/uL [place] Absolute Neut # 4.8 10*3/uL 1.8 - 7 10*3/uL [place] Basophils/100 WBC (Bld) 0.8 % 0 - 2 % [place] Eosinophils (Bld) [#/Vol] 0.3 10*3/uL 0 - 0.5 10*3/uL [place] Eosinophils/100 WBC (Bld) 3.7 % 1 - 6 % [place] Erythrocyte distribution width (RBC) [Ratio] 15.3 % High 11.5 - 14.5 % [place] Granulocytes/100 WBC (Bld) 58.5 % 40 - 80 % [place] Hematocrit (Bld) [Volume fraction] 38.6 % 35 - 47 % [place] Hemoglobin (Bld) [Mass/Vol] 13.3 g/dL 11.7 - 16 g/dL [place] Interpretation and review of laboratory results Abnormal [place] Lymphocytes (Bld) [#/Vol] 2.2 10*3/uL 1 - 4.3 10*3/uL [place] Lymphocytes/100 WBC (Bld) 27.0 % 20 - 40 % [place] MCH (RBC) [Entitic mass] 30.2 pg 26 - 34 pg [place] MCHC (RBC) [Mass/Vol] 34.5 % 32 - 36 % [place] MCV (RBC) [Entitic vol] 87.4 fL 79 - 98 fL [place] Monocytes (Bld) [#/Vol] 0.8 10*3/uL 0 - 0.8 10*3/uL [place] Monocytes/100 WBC (Bld) 10.0 % 2 - 10 % [place] Platelet mean volume (Bld) [Entitic vol] 9.1 fL 7.4 - 10.4 fL [place] Platelets (Bld) [#/Vol] 302 10*3/uL 140 - 440 10*3/uL [place] RBC (Bld) [#/Vol] 4.42 10*6/uL 3.8 - 5.2 10*6/uL [place] WBC (Bld) [#/Vol] 8.2 10*3/uL 3.6 - 10.7 10*3/uL [place] Test Performed by [facility], [address] [place], [place] [address] , [address] HEAD WO CONTRASTon 2019 Patient Name: CHAY TEAGUE ---CT--- Exam Date/Time 03/06/2020 13:04:[address] Head or Brain w/o Contrast Ordering Physician MD REESE GREGORY M Accession Number [id number] CPT4 Codes 26537 () Reason For Exam Altered mental status Report CT HEAD WITHOUT CONTRAST CLINICAL INDICATION: Change in mental status Axial noncontrast CT images of the brain were obtained. Coronal and sagittal reconstructions were also made available for interpretation. COMPARISON: October 21, 2019. FINDINGS: There is mild diffuse cortical volume loss. Nonspecific periventricular white matter hypodensities likely reflect areas of small vessel ischemic change in a patient of this age. No high attenuation material is seen to suggest hemorrhage. There is no definite evidence for acute cortical infarction. No midline shift or mass effect is noted. No fracture is identified on the bone windows. Leftward deviation of the nasal septum. However the paranasal sinuses are clear. Atherosclerotic calcification of the carotid siphons is noted. IMPRESSION: No evidence of an acute intracranial process. Report Dictated on --- Final --- Dictating Physician: MD HARRINGTON JASON Signed Date and Time: 03/06/2020 1:12 pm Signed by: MD HARRINGTON JASON Transcribed Date and Time: 03/06/2020 1:13 [place], [facility] Incoming Radiology Results From [facility] - 03/06/2020 1:13 PM EDT Patient Name: CHAY TEAGUE ---CT--- Exam Date/Time 03/06/2020 13:04:[address] Head or Brain w/o Contrast Ordering Physician MD REESE GREGORY M Accession Number [id number] CPT4 Codes 68130 () Reason For Exam Altered mental status Report CT HEAD WITHOUT CONTRAST CLINICAL INDICATION: Change in mental status Axial noncontrast CT images of the brain were obtained. Coronal and sagittal reconstructions were also made available for interpretation. COMPARISON: October 21, 2019. FINDINGS: There is mild diffuse cortical volume loss. Nonspecific periventricular white matter hypodensities likely reflect areas of small vessel ischemic change in a patient of this age. No high attenuation material is seen to suggest hemorrhage. There is no definite evidence for acute cortical infarction. No midline shift or mass effect is noted. No fracture is identified on the bone windows. Leftward deviation of the nasal septum. However the paranasal sinuses are clear. Atherosclerotic calcification of the carotid siphons is noted. IMPRESSION: No evidence of an acute intracranial process. Report Dictated on --- Final --- Dictating Physician: MD HARRINGTON JASON Signed Date and Time: 03/06/2020 1:12 pm Signed by: MD HARRINGTON JASON Transcribed Date and Time: 03/06/2020 1:13 [place] Comprehensive Metabolic Pane skylar 03-06-2020 Albumin [Mass/Vol] 4.0 g/dL 3.5 - 5 g/dL [place] ALP [Catalytic activity/Vol] 135 U/L High 38 - 126 U/L [place] ALT [Catalytic activity/Vol] 27 U/L 0 - 34 U/L [place] Comment on above: The ALT test is perf ormed by an updated assay method. Please note that the reference intervals have been changed and are now sex specific. Anion gap [Moles/Vol] 8 mmol/L [place] AST [Catalytic activity/Vol] 43 U/L 15 - 46 U/L [place] Bilirubin Ql (U) 0.7 mg/dL 0.2 - 1.3 mg/dL [place] Calcium [Mass/Vol] 9.1 mg/dL 8.4 - 10. 4 mg/dL [place] Chloride [Moles/Vol] 103 mmol/L 98 - 10 7 mmol/L [place] CO2 [Moles/Vol] 29 mmol/L 22 - 30 mmol/L [place] Creatinine [Mass/Vol] 0.83 mg/dL 0.52 - 1.25 mg/dL [place] EGFR IF NonAfrican [place] 68.1 mL/min >60 [place] Comment on above: KDIGO guidelines pro vide the following GFR categories: Stage GFR(ml/min/1.73 m2) Terms G1 >=90 Normal or high G2 60-89 Mildly decreased* G3a 45-59 Mildly to moderately decreased G3b 30-44 Moderately to severely decreased G4 15-29 Severely decreased G5 <15 Kidney failure *Relative to young adult level. In the absence of evidence of kidney damage, neither GFR category G1 nor G2 fulfill the criteria for CKD. The CKD-EPI equation is validated in individuals 18 years of age and older. Currently the best equation for estimating glomerular filtration rate (GFR) from serum creatinine in children is the Bedside Kerr equation. It is less accurate in patients with extremes of muscle mass, restriction of dietary protein, ingestion of creatine, extra-renal metabolism of creatinine, or treatment with medications that affect renal tubular creatinine secretion. GFR/1.73 sq M predicted among blacks MDRD (S/P/Bld) [Vol rate/Area] 78.9 mL/min/{1.73_m2} >60 [place] Glucose [Mass/Vol] 116 mg/dL High 70 - 100 mg/dL [place] Interpretation and review of laboratory results Abnormal [place] Potassium [Moles/Vol] 3.1 mmol/L Low 3.5 - 5.1 mmol/L [place] Protein [Mass/Vol] 7.6 g/dL 6.3 - 8.2 g/dL [place] Sodium [Moles/Vol] 140 mmol/L 135 - 145 mmol/L [place] Urea nitrogen [Mass/Vol] 22 mg/dL High 7 - 20 mg/dL [place] Lactic Acid, Plasmaon 2019 Lactate [Moles/Vol] 1.4 mmol/L 0.7 - 2 mmol/L [place] Otheron 03-06-2020 Test Performed by [facility], [address] , [address] Test Performed by [facility], [address] , [address] Troponinon 03-06-2020 Troponin I.cardiac [Mass/Vol] ng/mL 0 - 0.034 ng/mL [place] Comment on above: . Test Performed by [facility], [address], [address] Troponin I.cardiac [Mass/Vol] ng/mL 0 - 0.034 ng/mL [place] Comment on above: . Urinalysison 03-06-2020 Appearance (U) Clear Clear NA [place] Comment on above: . Bacteria, UA Few (1-5) Abnormal Negative /[HPF] [place] Comment on above: . Bilirubin Urine Negative Negative mg/dL [place] Comment on above: . Color (U) LIGHT YELLOW Lt. Yellow NA [place] Comment on above: . Glucose, Ur Normal Normal (<70) mg/dL [place] Comment on above: . Interpretation and review of laboratory results Abnormal [place] Ketones Ql (U) Negative Negative mg/dL [place] Comment on above: . LEUKOCYTES, UA 250 Abnormal Negative Jennifer/uL [place] Comment on above: . Nitrite, Urine Negative Negative NA [place] Comment on above: . Non-Squamous Epithelial 0-2 Abnormal Negative /[HPF] [place] Comment on above: . Occult Blood,Urine 0.1 mg/dL Abnormal Negative [place] Comment on above: . pH (U) 5.5 [pH] [place] Comment on above: . Protein (U) [Mass/Vol] Negative Negat alli mg/dL [place] Comment on above: . RBC (U) [#/Vol] Negative 0 - 2 /[HPF] [place] Comment on above: . Specific [place], Urine 1.017 [place] Comment on above: . Squam Epithel, UA 0-2 3 - 5 /[HPF] [place] Comment on above: . Urobilinogen, Urine Normal Normal (0-1) mg/dL [place] Comment on above: . Volume 8-12 ml [place] Comment on above: . WBC, UA 3-5 0 - 5 /[HPF] [place] Comment on above: . Test Performed by [facility], [facility] [address] , [address] XR ABDOMEN (KUB) (SINGLE AP VIEW)on 03-06-2020 Patient Name: CHAY TEAGUE ---Diagnostic Radiology--- Exam Date/Time 03/06/2020 21:54:29 EDT Exam CR Abdomen AP Ordering Physician MD LEBRON PRAMOD Accession Number [id number] CPT4 Codes 70571 () Reason For Exam abdominal pain Report EXAM: CR Abdomen AP INDICATION: Abdominal pain; left upper quadrant pain; history of gastric fundoplication VIEWS: AP COMPARISON: 10/21/2019 pelvis TIME: 21:27 FINDINGS AND IMPRESSION: The bowel gas pattern is nonspecific with moderate fecal retention. The hemidiaphragms are excluded from [id number]. Report Dictated on --- Final --- Dictating Physician: MD MCDERMOTT JENNIFER R Signed Date and Time: 03/06/2020 9:59 pm Signed by: MD MCDERMOTT JENNIFER R Transcribed Date and Time: 03/06/2020 10:01 [place], [facility] Incoming Radiology Results From [facility] - 03/06/2020 10:01 PM EDT Patient Name: CHAY TEAGUE ---Diagnostic Radiology--- Exam Date/Time 03/06/2020 21:54:29 EDT Exam CR Abdomen AP Ordering Physician MD LEBRON PRAMOD Accession Number [id number] CPT4 Codes 71595 () Reason For Exam abdominal pain Report EXAM: CR Abdomen AP INDICATION: Abdominal pain; left upper quadrant pain; history of gastric fundoplication VIEWS: AP COMPARISON: 10/21/2019 pelvis TIME: 21:27 FINDINGS AND IMPRESSION: The bowel gas pattern is nonspecific with moderate fecal retention. The hemidiaphragms are excluded from [id number]. Report Dictated on --- Final --- Dictating Physician: MD MCDERMOTT JENNIFER R Signed Date and Time: 03/06/2020 9:59 pm Signed by: MD MCDERMOTT JENNIFER R Transcribed Date and Time: 03/06/2020 10:01 [place] XR CHEST PORTABLEon 03-06-20 20 [facility], [facility] Incoming Radiology Results From [facility] - 03/06/2020 1:18 PM EDT Patient Name: CHAY TEAGUE ---Diagnostic Radiology--- Exam Date/Time 03/06/2020 12:50:01 EDT Exam CR Chest Portable Ordering Physician MD REESE GREGORY M Accession Number [id number] CPT4 Codes 55473 () Reason For Exam Shortness of breath Report CHEST X-RAY AP CLINICAL INDICATION: Change in mental status AP radiograph of the chest was obtained. COMPARISON: October 21, 2019 FINDINGS: The cardiac silhouette is within normal limits. There is calcific atheromatous disease of the thoracic aorta. No focal consolidation or opacification is seen within the lungs. No pleural effusion or pneumothorax is identified. Degenerative changes of the thoracic spine are noted. IMPRESSION: No acute cardiopulmonary process. Report Dictated on --- Final --- Dictating Physician: MD HARRINGTON JASON Signed Date and Time: 03/06/2020 1:17 pm Signed by: MD HARRINGTON JASON Transcribed Date and Time: 03/06/2020 1:18 [place] Patient Name: CHAY TEAGUE ---Diagnostic Radiology--- Exam Date/Time 03/06/2020 12:50:01 EDT Exam CR Chest Portable Ordering Physician MD REESE GREGORY M Accession Number [id number] CPT4 Codes 03704 () Reason For Exam Shortness of breath Report CHEST X-RAY AP CLINICAL INDICATION: Change in mental status AP radiograph of the chest was obtained. COMPARISON: October 21, 2019 FINDINGS: The cardiac silhouette is within normal limits. There is calcific atheromatous disease of the thoracic aorta. No focal consolidation or opacification is seen within the lungs. No pleural effusion or pneumothorax is identified. Degenerative changes of the thoracic spine are noted. IMPRESSION: No acute cardiopulmonary process. Report Dictated on --- Final --- Dictating Physician: MD HARRINGTON JASON Signed Date and Time: 03/06/2020 1:17 pm Signed by: MD HARRINGTON JASON Transcribed Date and Time: 03/06/2020 1:18 [facility], [place] CBC Auto DifferentialOrdered By: Cynthia Uribe on 08-31-2019 Absolute Baso # 0.1 10*3/uL 0 - 0.2 10*3/uL [facility] Work Phone: [phone] Absolute Neut # 5.3 10*3/uL 1.8 - 7 10*3/uL [facility] Work Phone: [phone] Basophils/100 WBC (Bld) 0.7 % 0 - 2 % [facility] Work Phone: [phone] Eosinophils (Bld) [#/Vol] 0.3 10*3/uL 0 - 0.5 10*3/uL [facility] Work Phone: [phone] Eosinophils/100 WBC (Bld) 3.0 % 1 - 6 % [facility] Work Phone: [phone] Erythrocyte distribution width (RBC) [Ratio] 14.7 % High 11.5 - 14.5 % [facility] Work Phone: [phone] Granulocytes/100 WBC (Bld) 59.4 % 40 - 80 % [facility] Work Phone: [phone] Hematocrit (Bld) [Volume fraction] 42.8 % 35 - 47 % [facility] Work Phone: [phone] Hemoglobin (Bld) [Mass/Vol] 14.4 g/dL 11.7 - 16 g/dL [facility] Work Phone: [phone] Interpretation and review of laboratory results Abnormal [facility] Work Phone: [phone] Lymphocytes (Bld) [#/Vol] 2.6 10*3/uL 1 - 4.3 10*3/uL [facility] Work Phone: [phone] Lymphocytes/100 WBC (Bld) 28.6 % 20 - 40 % [facility] Work Phone: [phone] MCH (RBC) [Entitic mass] 30.7 pg 26 - 34 pg [facility] Work Phone: [phone] MCHC 33.5 % 32 - 36 % [facility] Work Phone: [phone] MCV (RBC) [Entitic vol] 91.6 fL 79 - 98 fL [facility] Work Phone: [phone] Monocytes (Bld) [#/Vol] 0.7 10*3/uL 0 - 0.8 10*3/uL [facility] Work Phone: [phone] Monocytes/100 WBC (Bld) 8.3 % 2 - 10 % [facility] Work Phone: [phone] Platelet mean volume (Bld) [Entitic vol] 9.0 fL 7.4 - 10.4 fL [facility] Work Phone: [phone] 222 Platelets (Bld) [#/Vol] 273 10*3/uL 140 - 440 10*3/uL [facility] Work Phone: [phone] RBC (Bld) [#/Vol] 4.67 10*6/uL 3.8 - 5.2 10*6/uL [facility] Work Phone: ) 222 WBC (Bld) [#/Vol] 9.0 10*3/uL 3.6 - 10.7 10*3/uL [facility] Work Phone: [phone] Test Performed by [facility], [address] [place] [address] [address] Work Phone: [phone] Comprehensive Metabolic Pane lOrdered By: Cynthia Uribe on 08-31-2019 Albumin [Mass/Vol] 4.0 g/dL 3.5 - 5 g/dL [facility] Work [facility]: [phone] ALP [Catalytic activity/Vol] 134 U/L High 38 - 126 U/L [facility] Work Phone: [phone] ALT [Catalytic activity/Vol] 34 U/L 13 - 69 U/L [facility] Work Phone: [phone] Anion gap [Moles/Vol] 12 mmol/L [facility] Work Phone: [phone] AST [Catalytic activity/Vol] 31 U/L 15 - 46 U/L [facility] Work Phone: [phone] Bilirubin [Mass/Vol] 0.3 mg/dL 0.2 - 1 .3 mg/dL [facility] Work Phone: [phone] Calcium [Mass/Vol] 9.3 mg/dL 8.4 - 10. 4 mg/dL [facility] Work Phone: 222 Chloride [Moles/Vol] 102 mmol/L 98 - 10 7 mmol/L [facility] Work Phone: 222 CO2 [Moles/Vol] 29 mmol/L 22 - 30 mmol/L [facility] Work Phone: Creatinine [Mass/Vol] 1.17 mg/dL 0.52 - 1.25 mg/dL [facility] Work Phone: EGFR IF NonAfrican [place] 44.9 mL/min >60 [facility] Work Phone: Comment on above: Source- MDRD equatio n with creatinine calibration to IDMS(NKDEP) eGFR not recommended for drug dose adjustment GFR/1.73 sq M.predicted among blacks MDRD (S/P/Bld) [Vol rate/Area] 54.5 mL/min/{1.73_m2} >60 [facility] Work Phone: [phone] Glucose [Mass/Vol] 109 mg/dL High 70 - 100 mg/dL [facility] Work Phone: Interpretation and review of laboratory results Abnormal [facility] Work Phone: Potassium [Moles/Vol] 3.7 mmol/L 3.5 - 5.1 mmol/L [facility] Work Phone: Protein [Mass/Vol] 7.4 g/dL 6.3 - 8.2 g/dL [facility] Work Phone: Sodium [Moles/Vol] 142 mmol/L 135 - 145 mmol/L [facility] Work Phone: [phone] Urea nitrogen [Mass/Vol] 29 mg/dL High 7 - 20 mg/dL [facility] Work Phone: Test Performed by [facility], [facility] [address] , [place] [id number] [facility] Work Phone: TSH without ReflexOrdered By : Cynthia Uribe on 08-31-2019 TSH 2.584 u[IU]/mL 0.465 - 4.68 u[IU]/mL [facility] Work Phone: Test Performed by [facility], [address] , [place], [place] [address] [employer] Work Phone: Vitamin D 25 HydroxyOrdered By: Cynthia Uribe on 08-31-2019 Interpretation and review of laboratory results Abnormal [facility] Work Phone: Vit D, 25-Hydroxy 26 ng/mL Low 30 - 100 ng/mL [facility] Work Phone: Comment on above: Therapy is based on measurement of Total 25-OHD with the following classification levels: Less than 20 ng/mL: Indicative of Vit D deficiency 20-30 ng/mL: Suggests Vit D insufficiency Optimal: Greater than or equal to 30 ng/mL Test performed by [employer], measuring Total Vitamin D, not individual fractions. Test Performed by [facility], [address] [place], [place] [address] [employer] Work Phone: TSH without Reflexon 019 TSH Qn 3.036 u[IU]/mL 0.465 - 4.68 u[IU]/mL [facility] [place] Test Performed by Bare[facility], [address] , [address] [facility] [place] MG Breast Tomosynthesis Diag nostic Righton 03-09-2019 MG Breast Tomosynthesis Diagnostic Right Patient Name: CHAY TEAGUE Mammography Exam Date/Time 03/09/2019 07:49:43 EDT Exam MG Breast Tomosynthesis Uni Ordering Physician MD JOJO, CYNTHIA Accession Number [id number] CPT4 Codes 98091 (MG Breast Tomosynthesis Right), 29793 (MG MAMMO 2D DIAGNOSTIC) Reason For Exam Abnormal mammogram Report PATIENT HISTORY: Patient is postmenopausal. No known family history of cancer. Excisional biopsy of the left breast, 1996. Excisional biopsy of the right breast, 1996. Benign excisional biopsy of the left breast, 1989. Benign excisional biopsy of the right breast, 1987. Took hormonal contraceptives for 19 years beginning at age 21. Took estrogen for 6 years beginning at age 40. TIME SINCE LAST MAMMOGRAM: Last mammogram was performed 1 month ago. REASON FOR EXAM: addl evaluation requested from abnormal screening. PROCEDURE: MG BREAST TOMOSYNTHESIS RIGHT: MARCH 09, 2019 - 2D/3D Procedure 3D views: Spot compression CC, spot compression MLO, and ML view(s) were taken of the right breast. 2D views: Spot compression CC, spot compression MLO, and ML view(s) were taken of the right breast. Prior study comparison: February 17, 2019, bilateral screening mammogram performed at [facility]. February 17, 2019, bilateral MG breast tomosynthesis bl scr performed at [facility]. August 18, 2017, bilateral MG breast tomosynthesis bl scr performed at [facility]. November 22, 2010, bilateral mammogram. TISSUE DENSITY: There are scattered fibroglandular densities. . FINDINGS: The patient presents for further evaluation of the right breast after an abnormal screening mammogram. Mammogram: The finding question corresponds to a small focal asymmetry in superior lateral quadrant of the right breast at mid depth. Additional imaging evaluation with ultrasound was performed. Targeted ultrasound was performed in the region of interest. At 9:00, 6 cm from the nipple there is a 0.4 x 0.2 x 0.7 cm well-circumscribed oval mostly anechoic mass with avascular internal echoes, likely debris within a complicated cyst. This is the most likely correlate for the mammographic abnormality and is amenable to short-term follow-up. IMPRESSION: Probable complicated cyst at the site of interest in the right breast. Recommend short-term imaging surveillance with a right breast ultrasound in six months to ensure stability. Markings on images: BB's = Nipples; skin lesions Open twin hills = Palpable Line = Scar US BREAST LIMITED RIGHT: MARCH 09, 2019 - Standard views. 2D digital mammography and tomosynthesis imaging were performed and reviewed with CAD. ASSESSMENT: Category 3 Probably benign (Overall) RECOMMENDATION: Ultrasound of the right breast in 6 months. . Report Dictated on Final Signed Date and Time: 03/09/2019 8:57 am Signed by: MD DOMINICK, GONZALO Chung Normal [facility] US Breast Limited Righton US Breast Limited Right Patient Name: CHAY TEAGUE Ultrasound Exam Date/Time 03/09/2019 08:41:27 EDT Exam US Breast Limited Right Ordering Physician MD URIBE DIANA Accession Number [id number] CPT4 Codes 02669 () Reason For Exam Other abnormal and inconclusive findings on diagnostic imaging of breast Report PATIENT HISTORY: Patient is postmenopausal. No known family history of cancer. Excisional biopsy of the left breast, 1996. Excisional biopsy of the right breast, 1996. Benign excisional biopsy of the left breast, 1989. Benign excisional biopsy of the right breast, 1987. Took hormonal contraceptives for 19 years beginning at age 21. Took estrogen for 6 years beginning at age 40. TIME SINCE LAST MAMMOGRAM: Last mammogram was performed 1 month ago. REASON FOR EXAM: addl evaluation requested from abnormal screening. PROCEDURE: MG BREAST TOMOSYNTHESIS RIGHT: MARCH 09, 2019 - 2D/3D Procedure 3D views: Spot compression CC, spot compression MLO, and ML view(s) were taken of the right breast. 2D views: Spot compression CC, spot compression MLO, and ML view(s) were taken of the right breast. Prior study comparison: February 17, 2019, bilateral screening mammogram performed at [facility]. February 17, 2019, bilateral MG breast tomosynthesis bl scr performed at [facility]. August 18, 2017, bilateral MG breast tomosynthesis bl scr performed at [facility]. November 22, 2010, bilateral mammogram. TISSUE DENSITY: There are scattered fibroglandular densities. . FINDINGS: The patient presents for further evaluation of the right breast after an abnormal screening mammogram. Mammogram: The finding question corresponds to a small focal asymmetry in superior lateral quadrant of the right breast at mid depth. Additional imaging evaluation with ultrasound was performed. Targeted ultrasound was performed in the region of interest. At 9:00, 6 cm from the nipple there is a 0.4 x 0.2 x 0.7 cm well-circumscribed oval mostly anechoic mass with avascular internal echoes, likely debris within a complicated cyst. This is the most likely correlate for the mammographic abnormality and is amenable to short-term follow-up. IMPRESSION: Probable complicated cyst at the site of interest in the right breast. Recommend short-term imaging surveillance with a right breast ultrasound in six months to ensure stability. Markings on images: BB's = Nipples; skin lesions Open twin hills = Palpable Line = Scar US BREAST LIMITED RIGHT: MARCH 09, 2019 - Standard views. 2D digital mammography and tomosynthesis imaging were performed and reviewed with CAD. ASSESSMENT: Category 3 Probably benign (Overall) RECOMMENDATION: Ultrasound of the right breast in 6 months. . Report Dictated on Final Signed Date and Time: 03/09/2019 8:57 am Signed by: MD TAN KERISTEN L Normal [facility] Basic Metabolic Panelon 12- Anion gap molar conc 7 Normal [facility] Comment on above: Performed By: #### H VILLA BMP3 #### [address] Calcium mass conc 8.8 mg/dL Normal 8.4-10.4 [facility] Comment on above: Performed By: #### H VILLA BMP3 #### [address] CO2 molar conc 23 mmol/L Normal 22-30 [facility] Comment on above: Performed By: #### H VILLA BMP3 #### [address] Creatinine mass conc 0.85 mg/dL Normal 0.52-1.25 [facility] Comment on above: Performed By: #### H VILLA BMP3 #### [address] GFR/1.73 sq M predicted among blacks MDRD vol rate/area (S/P/Bld) mL/min/{1.73_m2} Normal >60 [facility] Comment on above: Performed By: #### H VILLA BMP3 #### [address] [place] [address] GFR/1.73 sq M predicted among non-blacks MDRD vol rate/area (S/P/Bld) mL/min/{1.73_m2} Normal >60 [facility] Comment on above: Result Comment: Sour ce- MDRD equation with creatinine calibration to IDMS(NKDEP) eGFR not recommended for drug dose adjustment Performed By: #### H VILLA BMP3 #### [facility] [address] [place] [address] Glucose mass conc 100 mg/dL Normal 70-100 [facility] Comment on above: Performed By: #### H VILLA BMP3 #### [facility] [address] [place] [address] Urea nitrogen mass conc 14 mg/dL Normal 7-20 [facility] Comment on above: Performed By: #### H VILLA BMP3 #### [facility] [address] [place] [address] Chloride molar conc 109 mmol/L High 98-107 [facility] Comment on above: Performed By: #### H VILLA BMP3 #### [address] [place] [address] Potassium molar conc 3.7 mmol/L Normal 3.5-5.1 [facility] Comment on above: Performed By: #### H VILLA BMP3 #### [address] [place] [address] Sodium molar conc 140 mmol/L Normal 135-145 [facility] Comment on above: Result Comment: NOTE : New Sodium Reference Range effective 2018 @ 10:00 Performed By: #### H VILLA BMP3 #### [facility] [address] [place] [address] CR Chest Portableon 09-08-20 18 CR Chest Portable Patient Name: CHAY TEAGUE Diagnostic Radiology Exam Date/Time 09/08/2018 16:21:12 EST Exam CR Chest Portable Ordering Physician MD ANTONI, TRA Knutson Accession Number [id number] CPT4 Codes 59523 () Reason For Exam fall Report PORTABLE CHEST X-RAY CLINICAL INDICATION: Fall A portable frontal view of the chest was obtained. COMPARISON: 05/21/2018 FINDINGS: The cardiac silhouette is within normal limits. Coarsening of the interstitial lung markings is noted, likely chronic. No focal consolidation is seen within the lungs. There is no large pleural effusion or pneumothorax. There are degenerative changes of the thoracic spine. IMPRESSION: Coarsening of the interstitial lung markings is likely chronic. No focal consolidation is identified. Report Dictated on Final Dictated: 09/08/2018 4:57 pm Dictating Physician: MD KATE JONATHAN R Signed Date and Time: 09/08/2018 4:58 pm Signed by: MD KATE JONATHAN R Transcribed Date and Time: 09/08/2018 4:57 Normal [facility] CR Wrist [facility] CR Wrist Complete 3 Views Left Patient Name: CHAY TEAGUE Diagnostic Radiology Exam Date/Time 09/08/2018 16:21:12 EST Exam CR Wrist Complete 3 Views Left Ordering Physician MD ANTONI, TRA Knutson Accession Number [id number] CPT4 Codes 97451 () Reason For Exam fall, open fracture Report LEFT WRIST CLINICAL INDICATION: Fall, open fracture AP, lateral, and oblique plain film views of the left wrist were obtained. COMPARISON: None FINDINGS: There is a mildly impacted transverse fracture through the distal radial metaphysis. Alignment is anatomic. There appears to be a nondisplaced, vertically oriented fracture line which extends to the distal radial articular surface. There is also a minimally displaced fracture of the ulnar styloid. No fracture of the carpal bones is identified. There is no radiopaque foreign body. Mild generalized soft tissue swelling over the left wrist is noted. IMPRESSION: Mildly impacted and comminuted intra-articular fracture at the left distal radius. Alignment is anatomic. Minimally displaced ulnar styloid fracture. Report Dictated on Final Dictated: 09/08/2018 4:56 pm Dictating Physician: MD KATE JONATHAN R Signed Date and Time: 09/08/2018 4:57 pm Signed by: MD KATE JONATHAN R Transcribed Date and Time: 09/08/2018 4:56 Normal [facility] CT Head or Brain w/o Contras ton 09-08-2018 CT Head or Brain w/o Contrast Patient Name: CHAY TEAGUE CT Exam Date/Time 09/08/2018 16:04:[address] Head or Brain w/o Contrast Ordering Physician MD CORRALES DAVID C. Accession Number [id number] CPT4 Codes 69801 () Reason For Exam fall, on anticoagulation Report EXAMINATION: CT of the Head without Contrast. COMPARISON: 11/20/2006. REASON FOR STUDY: Fall while on anticoagulation. TECHNIQUE: Contiguous multiplanar 3 mm images were extended from the skull base through the vertex. FINDINGS: Brain: Ramos-white matter differentiation appears normal. No focal parenchymal abnormality or mass effect is observed. Ventricles And Cisterns: The ventricular system, cisterns and sulci are within normal limits. Extra-Axial Spaces: No extra-axial abnormality is observed. Orbits: The orbits are symmetrical and within normal limits. Sinuses: Visualized paranasal sinuses and mastoid air cells are pneumatized. No mucosal thickening or fluid accumulation is observed. Skull And Scalp: No skull defect is observed. There is no appreciable scalp lesion. CONCLUSION(S): No evidence of acute intracranial injury, intracranial hemorrhage or skull fracture. Report Dictated on Final Dictated: 09/08/2018 4:40 pm Dictating Physician: MD DILLARD B NELSON Signed Date and Time: 09/08/2018 4:43 pm Signed by: MD DILLARD B NELSON Transcribed Date and Time: 09/08/2018 4:40 Normal [facility] CT Spine Cervical w/o Contra ston 09-08-2018 CT Spine Cervical w/o Contrast Patient Name: CHAY TEAGUE CT Exam Date/Time 09/08/2018 16:05:[address] Spine Cervical w/o Contrast Ordering Physician MD CORRALES DAVID C. Accession Number [id number] CPT4 Codes 52840 () Reason For Exam C-SPINE TRAUMA, NEXUS/CCR NEGATIVE, LOW RISK Report EXAMINATION: CT of the Cervical Spine without Contrast. COMPARISON: None. REASON FOR STUDY: Neck pain after trauma. TECHNIQUE: Contiguous axial 1 mm images were extended from the skull base through the upper thorax. Multiplanar and 3D images were concurrently rendered and reviewed on a 3-D workstation to enhance visualization of the vertebrae. FINDINGS: Vertebral bodies, pedicles and posterior arches appear intact. Endplate osteophytes are present diffusely. No paravertebral abnormality is observed. Vertebral alignment is anatomic. The C3-C4, C4-C5, C5-C6 and C6-C7 disc spaces are severely narrowed. There is osteophytic encroachment into the left C4, C5 and C6 neural foramina. Prevertebral soft tissues appear normal. Severe degenerative changes are observed at the temporomandibular joints. CONCLUSIONS: 1. No evidence of acute bone injury or malalignment. 2. Severe multilevel degenerative disc disease. 3. Osteophytic encroachment into the left C4, C5 and C6 neural foramina. 7. Severe osteoarthrosis of the temporomandibular joints. Report Dictated on Final Dictated: 09/08/2018 4:43 pm Dictating Physician: MD DILLARD B NELSON Signed Date and Time: 09/08/2018 4:50 pm Signed by: MD DILLARD B NELSON Transcribed Date and Time: 09/08/2018 4:43 Normal [facility] ED Provider Noteon 8 Protein mass conc [facility] EMERGENCY DEPT eMERGENCY dEPARTMENT eNCOUnter Pt Name: Chay Teague Birthdate 1945 Date of evaluation: 09/08/2018 Provider: Tra Corrales MD CHIEF COMPLAINT Chief Complaint Patient presents with ? Fall ? Arm Injury Left wrist ? Laceration Left wrist HISTORY OF PRESENT ILLNESS (Location/Symptom, Timing/Onset,Context/Sett ing, Quality, Duration, Modifying Factors, Severity) Note limiting factors. HPI Chay Teague is a 73 y.o. female who presents to the emergency department Presents with possible open fracture of her left wrist while getting out of the shower and slipping and falling onto an outstretched left hand. Patient denies loss of consciousness neck pain chest abdomen pelvis pain. She was not able to ambulate initially. Paramedics gave her 50 ?g of fentanyl IV. This helped her pain significantly. Daughter states she may be on a blood thinner unclear why. She denies any loss consciousness but does have some baseline confusion. Is no neck pain. She denies shortness of breath nausea vomiting fever or urinary symptoms. She has no focal neurologic symptoms Nursing Notes were reviewed. REVIEW OFSYSTEMS (2+ for level 4; 10+ for level 5) Review of Systems Constitutional: Negative for fatigue and fever. HENT: Negative for sinus pressure and sore throat. Eyes: Negative for discharge and visual disturbance. Respiratory: Negative for cough and shortness of breath. Cardiovascular: Negative for chest pain and palpitations. Gastrointestinal: Negative for abdominal pain, nausea and vomiting. Genitourinary: Negative for dysuria and hematuria. Musculoskeletal: Positive for arthralgias and joint swelling. Negative for back pain and neck pain. Her left wrist is tightly bound and Kerlix as there is an arterial bleeder according to EMS Skin: Negative for rash and wound. Neurological: Negative for speech difficulty, weakness, light-headedness, numbness and headaches. Psychiatric/Behavioral: Negative for behavioral problems and confusion. Patient does have some baseline mild dementia PAST MEDICAL HISTORY Past Medical History: Diagnosis Date ? Depression ? History of blood transfusion ? Hypertension ? Hypothyroidism SURGICAL HISTORY Past Surgical History: Procedure Laterality Date ? GASTRIC FUNDOPLICATION 12/02/[address] COY BARRERA ? HERNIA REPAIR 12/02/2011 LAP HIATAL HERNIA WITH MESH DR COY BARRERA ? HYSTERECTOMY, TOTAL ABDOMINAL ? UPPER GASTROINTESTINAL ENDOSCOPY 06/15/2012 DR COY BARRERA ? UPPER GASTROINTESTINAL ENDOSCOPY 10/14/2011 DR COY BARRERA CURRENT MEDICATIONS Previous Medications ACETAMINOPHEN (TYLENOL) 500 MG TABLET Take 500 mg by mouth every 6 hours as needed for Pain AMLODIPINE (NORVASC) 5 MG TABLET TAKE ONE TABLET BY MOUTH TWO TIMES A DAY AMLODIPINE (NORVASC) 5 MG TABLET TAKE ONE TABLET BY MOUTH TWO TIMES A DAY ASPIRIN 81 MG CHEWABLE TABLET Take 1 tablet by mouth daily CALCIUM CARBONATE (TUMS) 500 MG CHEWABLE TABLET Take 1 tablet by mouth daily FOLIC ACID (FOLVITE) 400 MCG TABLET Take 400 mcg by mouth daily MULTIPLE VITAMIN (MULTI VITAMIN DAILY PO) Take by mouth SIMETHICONE (MYLICON) 80 MG CHEWABLE TABLET Take 80 mg by mouth every 6 hours as needed for Flatulence VENLAFAXINE (EFFEXOR XR) 150 MG EXTENDED RELEASE CAPSULE Take 1 capsule by mouth daily VITAMIN D (ERGOCALCIFEROL) 54924 UNITS CAPSULE Take 1 capsule by mouth once a week ALLERGIES Patient has no known allergies. FAMILY HISTORY Family History Problem Relation Age of Onset ? Heart Disease Mother ? Mental Illness Father Passed from suicide ? Diabetes Sister ? Heart Disease Maternal Grandfather SOCIAL HISTORY Social History Social History ? Marital status: Spouse name: N/A ? Number of children: N/A ? Years of education: N/A Social History Main Topics ? Smoking status: Former Smoker Types: Cigarettes Quit date: 1984 ? Smokeless tobacco: Never Used ? Alcohol use No ? Drug use: No ? Sexual activity: Not Asked Other Topics Concern ? None Social History Narrative ? None SCREENINGS PHYSICAL EXAM (up to 7 for level 4, 8 or more for level 5) ED Triage Vitals [09/08/18 1532] BP Temp Temp Source Pulse Resp SpO2 Height Weight (!) 128/54 97.9 ?F (36.6 ?C) Oral 78 20 97 % 5' 3 (1.6 m) 192 lb (87.1 kg) Physical Exam Constitutional: She is oriented to person, place, and time. She appears well-developed. No distress. HENT: Head: Normocephalic and atraumatic. Mouth/Throat: No oropharyngeal exudate. Eyes: Pupils are equal, round, and reactive to light. Conjunctivae and EOM are normal. Right eye exhibits no discharge. Left eye exhibits no discharge. Neck: Normal range of motion. Neck supple. Cardiovascular: Normal rate and regular rhythm. Pulmonary/Chest: No respiratory distress. She has no wheezes. Abdominal: Soft. She exhibits no distension. There is no tenderness. There is no rebound. Musculoskeletal: Normal range of motion. She exhibits tenderness. She exhibits no edema. Her left wrist note some deformity which class for a Colles' fracture. He has tightly wrapped in Kerlix as there was arterial bleeding. There is normal range of motion sensation in her fingertips. There is normal capillary refill. Full range of motion at the shoulder and elbow of the left upper extremity. Neck is supple nontender. Back is nontender. Pelvis is stable Neurological: She is alert and oriented to person, place, and time. She has normal strength. No sensory deficit. Skin: Skin is warm and dry. Capillary refill takes less than 2 seconds. There is an open fracture wound to the left wrist DIAGNOSTIC RESULTS EKG (Per Emergency Physician): RADIOLOGY (Per Emergency Physician): Interpretation per the Radiologist below, if available at the time of this note: No results found. ED BEDSIDE ULTRASOUND: Performed by ED Physician - none LABS: Labs Reviewed BASIC METABOLIC PANEL CBC WITH AUTO DIFFERENTIAL PROTIME/INR & PTT All other labs were within normal range or not returned as of this dictation. EMERGENCY DEPARTMENT COURSE and DIFFERENTIAL DIAGNOSIS/MDM: Vitals: Vitals: 09/08/18 1532 BP: (!) 128/54 Pulse: 78 Resp: 20 Temp: 97.9 ?F (36.6 ?C) TempSrc: Oral SpO2: 97% Weight: 87.1 kg (192 lb) Height: 5' 3 (1.6 m) Medications - No data to display MDM. This most likely is an open fracture of the left wrist. We will get x-rays. There is no evidence of vascular compromise to the left hand. As she may be on anticoagulation without a head and neck and chest as well. We will check some baseline lab work and she will need an orthopedic surgery consult. REVAL: There is a nondisplaced fracture of the distal radius as well as ulnar of the left upper extremity. Because of potential for open fracture although it does not appear to based on the fracture orthopedic surgery was called. She says a skin take her to her left full arrest in the ulnar area. Do not believe this is an open fracture. Orthopedic surgery will close this splinter and she will have follow-up arranged. Patient's daughter 100 be seen by [facility] orthopedics in [place]. We will give her referral to Dr. Sun CRITICAL CARE TIME Total CriticalCare time was 0 minutes, excluding separately reportable procedures. There was a high probability of clinically significant/life threatening deterioration in the patient's condition which required my urgent intervention. CONSULTS: None PROCEDURES: Unless otherwise noted below, none Splint Application Date/Time: 09/08/2018 5:40 PM Performed by: TRA CORRALES Authorized by: TRA CORRALES Consent: Consent obtained: Verbal Consent given by: Guardian and patient Risks discussed: Discoloration, numbness, pain and swelling Pre-procedure details: Sensation: Normal Procedure details: Laterality: Left Location: Arm Arm: L lower arm Strapping: no Cast type: Short arm Post-procedure details: Pain: Improved Sensation: Normal Patient tolerance of procedure: Tolerated well, no immediate complications Comments: Placed by Ortho resident under my supervision FINAL IMPRESSION No diagnosis found. DISPOSITION/PLAN DISPOSITION PATIENT REFERRED TO: No follow-up provider specified. DISCHARGE MEDICATIONS: New Prescriptions No medications on file (Please note: Portions of this note were completed with a voice recognition program.Efforts were made to edit the dictations but occasionally words and phrases are mis-transcribed.) Form [id number] @@ (electronically signed) Emergency Medicine Provider Tra Corrales MD 09/08/18 1859 Normal [facility] Hemogram w/ Autodiffon 09-08 Abs Baso Cnt 0.1 10*3/uL Normal 0.0-0.2 [facility] Comment on above: Performed By: #### H EMDTodd BMP3 #### [address] [address] Abs Neutrophile Cnt 5.8 10*3/uL Normal 1.8-7.0 [facility] Comment on above: Performed By: #### H VILLA BMP3 #### [address] [address] Basophils/100 WBC (Bld) 0.7 % Normal 0.0-2.0 [facility] Comment on above: Performed By: #### H EMDTodd BMP3 #### [facility] [address] [place] [address] Eosinophils #/vol (Bld) 0.2 10*3/uL Normal 0.0-0.5 [facility] Comment on above: Performed By: #### H EMDTodd BMP3 #### [facility] [address] [place] [address] Eosinophils/100 WBC (Bld) 2.3 % Normal 1.0-6.0 [facility] Comment on above: Performed By: #### H EMDF, BMP3 #### [facility] [address] [place] [address] Erythrocyte distribution width Ratio (RBC) 14.9 % High 11.5-14.5 [facility] Comment on above: Performed By: #### H EMDF, BMP3 #### [facility] [address] [place] [address] Granulocytes/100 WBC (Bld) 69.6 % Normal 40.0-80.0 [facility] Comment on above: Performed By: #### H EMDF, BMP3 #### [address] [place] [address] Hematocrit Volume Fraction (Bld) 41.2 % Normal 35.0-47.0 [facility] Comment on above: Performed By: #### H EMDF, BMP3 #### [address] [place] [address] Hemoglobin mass conc (Bld) 13.5 g/dL Normal 11.7-16.0 [facility] Comment on above: Performed By: #### H EMDF, BMP3 #### [address] [place] [address] Lymphocytes #/vol (Bld) 1.7 10*3/uL Normal 1.0-4.3 [facility] Comment on above: Performed By: #### H EMDF, BMP3 #### [address] [place] [address] Lymphocytes/100 WBC (Bld) 20.5 % Normal 20.0-40.0 [facility] Comment on above: Performed By: #### H EMDF, BMP3 #### [facility] [address] [place] [address] MCH Entitic mass (RBC) 30.8 pg Normal 26.0-34.0 [facility] Comment on above: Performed By: #### H EMDF, BMP3 #### [address] [place] [address] MCHC mass conc (RBC) 32.9 % Normal 32.0-36.0 [facility] Comment on above: Performed By: #### H EMDF, BMP3 #### [facility] [address] [place], [place] MCV Entitic volume (RBC) 93.6 fL Normal 79.0-98.0 [facility] Comment on above: Performed By: #### H EMDF, BMP3 #### [facility] [address] [place], [place] Monocytes #/vol (Bld) 0.6 10*3/uL Normal 0.0-0.8 [facility] Comment on above: Performed By: #### H EMDF, BMP3 #### [facility] [address] [place], [place] Monocytes/100 WBC (Bld) 6.9 % Normal 2.0-10.0 [facility] Comment on above: Performed By: #### H EMDF, BMP3 #### [facility] [address] [place], [place] Platelet mean volume Entitic volume (Bld) 9.0 fL Normal 7.4-10.4 [facility] Comment on above: Performed By: #### H EMDF, BMP3 #### [facility] [address] [place], [place] Platelets #/vol (Bld) 212 10*3/uL Normal 140-440 [facility] Comment on above: Performed By: #### H EMDF, BMP3 #### [facility] [address] [place], [place] RBC #/vol (Bld) 4.40 10*6/uL Normal 3.80-5.20 [facility] Comment on above: Performed By: #### H EMDF, BMP3 #### [facility] [address] [place], [place] WBC #/vol (Bld) 8.4 10*3/uL Normal 3.6-10.7 [facility] Comment on above: Performed By: #### H EMDF, BMP3 #### [facility] [address], [place] CNCOon 09-02-2017 CNCO Letter Uri damon MD[address] [facility] [id number]: [phone]: [phone]: 09/02/2017Provider: Hayley Geronimo,We have received a referral from your Primary Care Physician requesting us tocontact you to schedule a Screening Colonoscopy for prevention and earlydetection of colon cancer. Our office has tried to contact you withoutsuccess.Colon Cancer is the third leading cause of cancer related deaths. One hundredfifty thousand Americans are diagnosed with colon cancer annually, and thiscondition is responsible for 50,000 deaths per year. Hence, this disease hassignificant mortality and health consequences.Colonoscopy is an easy and safe test to remove pre-cancerous growth (polyps)from the colon, preventing and detecting colon cancer at an early stage thusimproving survival.Most insurances pay for Colonoscopy without any out pocket expense to thepatient. Colonoscopy is performed under deep sedation with the help of ananesthesia professional with zero pain/discomfort during the procedure.We urge you to please call our office at [phone], option 5 and we willassist you in scheduling your exam.Sincerely,Clifford Crane MD Normal [facility] Vital Signs Date Time Vital Sign Value Performing Clinician Facility 08-29-2021 19:41-0500 Body height 154.94 cm Referring Provider Unknown [facility] Work Phone: 08-29-2021 19:41-0500 Body mass index (BMI) [Ratio] 35.9 kg/m2 Referring Provider Unknown [facility] Work Phone: 08-29-2021 19:41-0500 Body surface area Derived from formula 1.85 m2 Referring Provider Unknown [facility] Work Phone: 08-29-2021 19:41-0500 Body temperature 97.3 [degF] Referring Provider Unknown [facility] Work Phone: 08-29-2021 19:41-0500 Body weight 86.18 kg Referring Provider Unknown [facility] Work Phone: 08-29-2021 19:41-0500 Diastolic blood pressure 75 mm[Hg] Referring Provider Unknown [facility] Work Phone: 08-29-2021 19:41-0500 Heart rate 101 /min Referring Provider Unknown [facility] Work Phone: 08-29-2021 19:41-0500 Respiratory rate 26 /min Referring Provider Unknown [facility] Work Phone: 08-29-2021 19:41-0500 SaO2% (BldA) [Mass fraction] 94 % Referring Provider Unknown [facility] Work Phone: 08-29-2021 19:41-0500 Systolic blood pressure 151 mm[Hg] Referring Provider Unknown [facility] Work Phone: 11-02-2020 18:04-0500 BP Diastolic 95 mm[Hg] Jame Gombash [facility] Work Phone: 11-02-2020 18:04-0500 BP Systolic 124 mm[Hg] Jame Gombash [facility] Work Phone: 11-02-2020 18:04-0500 Pulse (Heart Rate) 102 /min Jame Kostasmbash [facility] Work Phone: 11-02-2020 18:04-0500 Pulse Oximetry 99 % Jame Kostasmbash [facility] Work Phone: 11-02-2020 15:23-0500 Body Temperature 97.39 [degF] Jame Gombash [facility] Work Phone: 11-02-2020 15:23-0500 Respiratory Rate 18 /min Jame Gombash [facility] Work Phone: 11-02-2020 13:38-0500 BP Diastolic 58 mm[Hg] Jame Gombash [facility] Work Phone: 11-02-2020 13:38-0500 BP Systolic 134 mm[Hg] Jame Gombash [facility] Work Phone: 11-02-2020 13:36-0500 Body Temperature 98.71 [degF] Jame WALTON Work Phone: 11-02-2020 13:36-0500 Pulse (Heart Rate) 103 /min Jame WALTON Work Phone: 11-02-2020 13:36-0500 Pulse Oximetry 100 % Jame WALTON Work Phone: 11-02-2020 13:36-0500 Respiratory Rate 22 /min Jame WALTON Work Phone: 03-09-2020 08:35-0400 Pulse Oximetry 94 % Emily Reese [place], [place] 03-09-2020 08:26-0400 Body Temperature 97.9 [degF] Emily Reese [place], [place] 03-09-2020 08:26-0400 BP Diastolic 90 mm[Hg] Emily Reese [place], [place] 03-09-2020 08:26-0400 BP Systolic 146 mm[Hg] Emily [place], [place] 03-09-2020 08:26-0400 Pulse (Heart Rate) 90 /min Emily Reese [place], [place] 03-09-2020 08:26-0400 Respiratory Rate 18 /min Emily Reese [place], [place] 03-06-2020 17:21-0400 BMI (Body Mass Index) 35.43 kg/m2 Emily Reese [place] 03-06-2020 17:21-0400 Body weight 90.72 kg Emily [place], [place] Comment on above: per 08/2019 office visit 03-06-2020 17:21-0400 Height 160 cm Emily [place] Comment on above: per 08/2019 office visit 01-22-2020 14:28-0400 Body Temperature 97.4 [degF] Scott Jimenez [facility] Work Phone: 01-22-2020 14:28-0400 BP Diastolic 78 mm[Hg] Scott Jimenez [facility] Work Phone: 01-22-2020 14:28-0400 BP Systolic 126 mm[Hg] Scott Barbara [facility] Work Phone: 01-22-2020 14:28-0400 Pulse (Heart Rate) 86 /min Scott Barbara [facility] Work Phone: 01-22-2020 14:28-0400 Pulse Oximetry 95 % Scott Jimenez [facility] Work Phone: 01-22-2020 14:28-0400 Respiratory Rate 32 /min Scott Barbara [facility] Work Phone: Encounters Encounter Date Encounter Type Care Provider Facility Start: 02-16-2025 [facility] Start: 12-09-2024 End: 12-09-2024 ambulatory Saurabh Fernandez MD [facility] Work Phone: Start: 12-09-2024 End: 12-09-2024 Departed Referred [facility]abh [facility] Start: 12-09-2024 Registered Referred Saurabh Fernandez [facility] Start: 12-09-2024 End: 12-09-2024 ambulatory Saurabh MANJARREZ Facility:[facility] Start: 11-22-2024 End: 11-22-2024 ambulatory Saurabh Fernandez MD [facility] Work Phone: Start: 11-22-2024 End: 11-22-2024 Departed Referred Saurabh Fernandez MD [facility] Start: 11-22-2024 Registered Referred Saurabh Fernandez [facility] Start: 11-22-2024 End: 11-22-2024 ambulatory Saurabh MANJARREZ Facility:[facility] Start: 11-17-2024 End: 11-17-2024 ambulatory Saurabh Fernandez MD [facility] Work Phone: Start: 11-17-2024 End: 11-17-2024 Departed [facility] Start: 11-17-2024 End: 11-17-2024 ambulatory Saurabh MANJARREZ Facility:[facility] Start: 11-10-2024 ambulatory Saurabh MANJARREZ Facili ty:[facility] Start: 11-10-2024 Registered Referred [facility] Start: 09-16-2024 ambulatory Saurabh MANJARREZ Facili ty:[facility] Start: 09-16-2024 Registered Referred [facility] Start: 08-30-2024 End: 08-30-2024 Departed Referred [facility] Start: 08-30-2024 End: 08-30-2024 ambulatory Saurabh MANJARREZ Facility:[facility] Start: 08-09-2024 End: 08-09-2024 ambulatory Saurabh MANJARREZ Facility:[facility] Start: 06-25-2024 End: 06-25-2024 ambulatory Saurabh MANJARREZ Facility:[facility] Start: 06-24-2024 End: 06-24-2024 ambulatory Saurabh MANJARREZ Facility:[facility] Start: 06-07-2024 End: 06-07-2024 ambulatory Saurabh MANJARREZ Facility:[facility] Start: 04-01-2024 ambulatory Saurabh MANJARREZ Facili ty:[facility] Start: 03-15-2024 ambulatory Saurabh MANJARREZ Facili ty:[facility] Start: 10-16-2023 End: 10-16-2023 ambulatory [facility] Work Phone: Start: 10-16-2023 End: 10-16-2023 Departed Referred [facility] Start: 09-29-2023 End: 09-29-2023 ambulatory [facility] Work Phone: Start: 09-29-2023 End: 09-29-2023 Departed Referred [facility] Start: 09-01-2023 End: 09-01-2023 ambulatory [facility] Work Phone: Start: 09-01-2023 End: 09-01-2023 Departed Referred [facility] Start: 07-24-2023 End: 07-24-2023 ambulatory [facility] Work Phone: Start: 07-24-2023 End: 07-24-2023 Departed Referred [facility] Start: 06-30-2023 End: 06-30-2023 ambulatory [facility] Work Phone: Start: 06-30-2023 End: 06-30-2023 Departed Referred [facility] Start: 05-01-2023 End: 05-01-2023 ambulatory [facility] Work Phone: Start: 05-01-2023 End: 05-01-2023 Departed Referred [facility] Start: 04-07-2023 End: 04-07-2023 ambulatory [facility] Work Phone: Start: 04-07-2023 End: 04-07-2023 Departed Referred [facility] Start: 02-06-2023 End: 02-06-2023 Departed Referred [facility] Start: 01-13-2023 End: 01-13-2023 ambulatory [facility] Work Phone: Start: 01-13-2023 End: 01-13-2023 Departed Referred [facility] Start: 11-14-2022 End: 11-14-2022 ambulatory [facility] Work Phone: Start: 11-14-2022 End: 11-14-2022 Departed Referred [facility] Start: 11-14-2022 Registered Referred [facility] Start: 10-21-2022 End: 10-21-2022 ambulatory [facility] Work Phone: Start: 10-21-2022 End: 10-21-2022 Departed Referred [facility] Start: 08-23-2022 End: 08-23-2022 ambulatory [facility] Work Phone: Start: 08-23-2022 End: 08-23-2022 Departed Referred [facility] Start: 08-23-2022 Registered Referred [facility] Start: 08-22-2022 End: 08-22-2022 ambulatory [facility] Work Phone: Start: 08-22-2022 End: 08-22-2022 Departed Referred [facility] Home Start: 08-22-2022 Registered Referred [facility] Home Start: 07-29-2022 End: 07-29-2022 ambulatory [facility] Work Phone: Start: 07-29-2022 End: 07-29-2022 Departed Referred [facility] Home Start: 07-29-2022 Registered Referred [facility] Home Start: 07-24-2022 End: 07-24-2022 ambulatory [facility] Work Phone: Start: 07-24-2022 End: 07-24-2022 Departed Referred [facility] Start: 06-06-2022 End: 06-24-2022 Evaluation and management of inpatient [facility] Facility[facility] Start: 06-05-2022 End: 06-06-2022 Emergency department patient visit CYNTHIA JOJO Facility:[facility] Start: 06-05-2022 Admission to [facility] Mundo Bailey [employer] Work Phone: [facility] Start: 06-05-2022 ambulatory Mundo conley [employer] Work Phone: [facility] Comment on above: Psychiatric Problem Start: 08-30-2021 Chart Update Referring Prov ider Unknown [facility] Work Phone: Start: 08-29-2021 Office outpatient vi sit 15 minutes Referring Provider [facility] Work Phone: Start: 05-10-2021 End: 05-10-2021 Subsequent hospital visit by physician Cynthia Uribe MD Work Phone: [facility] Comment on above: Vitamin D deficiency ; Recurrent depression (HCC); Essential hypertension; Other specified hypothyroidism; Mild intermittent asthma without complication Start: 11-02-2020 End: 11-02-2020 Emergency department patient visit Jame Best Work Phone: [facility] Comment on above: Altered mental statu s, unspecified altered mental status type (Primary Dx); Shortness of breath; Lower extremity edema; Abdominal pain, right lower quadrant; Gallstones Start: 03-06-2020 End: 03-09-2020 Evaluation and management of inpatient Emily Reese Work Phone: [facility] Comment on above: Delirium (Primary Dx ); Urinary tract infection without hematuria, site unspecified Start: 08-31-2019 End: 08-31-2019 Subsequent hospital visit by physician Cynthia Uribe MD Work Phone: [facility] Comment on above: Vitamin D deficiency ; Other specified hypothyroidism Start: 05-18-2019 End: 05-18-2019 Subsequent hospital visit by physician Cynthia Uribe Work Phone: [facility] Comment on above: Other specified hypo thyroidism Procedures Date Procedure Procedure Detail Performing Clinician Start: 05-10-2021 Comprehensive metabo lic panel Cynthia Uribe MD Work Phone: Start: 05-10-2021 Hepatitis c antibody Gladys Uribe MD Work Phone: Start: 11-02-2020 CT Abdomen and Pelvi s W contrast IV Jame Best Work Phone: Start: 11-02-2020 Ct angiography chest w/contrast/noncontrast Jame Best Work Phone: Start: 11-02-2020 Ct head/brain w/o co ntrast material Jame Farfan [facility] Work Phone: Start: 11-02-2020 Assay of lactate Jame Farfan [facility] Work Phone: Start: 11-02-2020 Assay of troponin quantitative Jame Farfan [facility] Work Phone: Start: 11-02-2020 Blood count complete auto&auto difrntl wbc Jame Farfan [facility] Work Phone: Start: 11-02-2020 Comprehensive metabo lic panel Jame Farfan [facility] Work Phone: Start: 11-02-2020 COVID-19, RAPID Jame Farfan [facility] Work Phone: Start: 11-02-2020 Natriuretic peptide Stone Farfan [facility] Work Phone: Start: 11-02-2020 Prothrombin time Jame Farfan [facility] Work Phone: Start: 11-02-2020 Ecg routine ecg w/le ast 12 lds w/i&r Jame Farfan [facility] Work Phone: Start: 03-07-2020 Mri brain brain stem w/o w/contrast material Delia Chavez Work Phone: Start: 03-07-2020 Mra head w/o contrst material Delia Chavez Work Phone: Start: 03-07-2020 Echo tthrc r-t 2d w/wom-mode compl spec&colr d Delia Chavez Work Phone: Start: 03-07-2020 Assay of folic acid serum Delia Chavez Work Phone: Start: 03-07-2020 Assay of thyroid stimulating hormone tsh Delia Chavez Work Phone: Start: 03-07-2020 Assay of troponin quantitative Delia Chavez Work Phone: Start: 03-07-2020 Blood count complete auto&auto difrntl wbc Delia Chavez Work Phone: Start: 03-07-2020 Blood count complete automated Delia Scott Work Phone: Start: 03-07-2020 Cyanocobalamin vitamin b-12 Delia Scott Work Phone: Start: 03-07-2020 Hemoglobin glycosylated a1c Delia Chavez Work Phone: Start: 03-07-2020 Lipid panel Delia Chavez Work Phone: Start: 03-06-2020 Radiologic exam abdo men 1 view Cain Bernardino Work Phone: Start: 03-06-2020 Assay of ammonia Merrick Chavez Work Phone: Start: 03-06-2020 Assay of troponin quantitative Delia Chavez Work Phone: Start: 03-06-2020 Speech and language therapy regime Delia Clark Work Phone: Start: 03-06-2020 ADD ON LAB TEST Emily Reese Work Phone: Start: 03-06-2020 Ct head/brain w/o co ntrast material Emily Reese Work Phone: Start: 03-06-2020 Radiologic exam ches t single view Emily Reese Work Phone: Start: 03-06-2020 Culture bacterial bl ood aerobic w/id isolates Emily Reese Work Phone: Start: 03-06-2020 CULTURE, BLOOD 1 Jeremy Reese Work Phone: Start: 03-06-2020 Assay of lactate Jeremy rosen Reese Work Phone: Start: 03-06-2020 Assay of troponin quantitative Emily Reese Work Phone: Start: 03-06-2020 Blood count complete auto&auto difrntl wbc Emily Reese Work Phone: Start: 03-06-2020 Comprehensive metabo lic panel Emily Reese Work Phone: Start: 03-06-2020 Culture bacterial quanttative colony count urine Emily Reese Work Phone: Start: 03-06-2020 Natriuretic peptide Gre santana Reese Work Phone: Start: 03-06-2020 Urnls dip stick/tabl et rgnt auto w/o microscopy Emily Reese Work Phone: Start: 03-06-2020 Ecg routine ecg w/le ast 12 lds w/i&r Emily Reese Work Phone: Start: 08-31-2019 End: 08-31-2019 Comprehensive metabolic panel Cynthia Uribe MD Work Phone: Start: 05-18-2019 Assay of thyroid stimulating hormone tsh Cynthia Uribe Work Phone: Plan of Treatment Date Care Activity Detail Author Start: 06-05-2025 DIABETES SCREEN DIABETES SCREEN [facility] Start: 05-23-2022 Influenza vaccination INFLUENZA (#1) [facility] Start: 05-10-2022 [facility]: Start: 05-10-2022 [facility] Start: 11-02-2021 Creatinine measurement Creatinine mo [facility]itoring [facility] Work Phone: Start: 11-02-2021 Potassium [facility] Work [facility]: Start: 09-22-2021 ADVANCE DIRECTIVE DISCUSSION ADVANCE DIRECTIVE DISCUSSION [facility] Start: 09-10-2021 End: 09-10-2021 Telemedicine consultation with patient 09/10/2021 Telemedicine Family Medicine Cynthia Uribe MD [address] [place] [id number] [facility] Start: 05-23-2021 Influenza vaccination Flu vaccine (# 1) [facility] Work Phone: Start: 03-07-2021 Creatinine measurement Creatinine mo nitoring [facility], [place] Start: 03-07-2021 Potassium monitoring Potassium monit [facility] [place] Start: 08-31-2020 Creatinine monitoring Creatinine mon itoring [facility] Work Phone: Start: 08-31-2020 Pot[facility] Work Phone: Start: 05-23-2020 Influenza vaccination Flu vacc ine (Season Ended) [place], [place] Start: 11-09-2019 Creatinine monitoring Creatinine mon itoring [place], [place] Start: 11-09-2019 Potassium monitoring Potassium monit [place], [place] Start: 05-23-2019 Influenza vaccination Flu vaccine (# 1) [place] Start: 03-09-2019 Annual Wellness Visi t (AWV) Annual Wellness Visit (AWV) [facility] Work Phone: Start: 2008 BONE DENSITY BONE DENSITY [facility] Start: 2008 DEXA (modify frequen cy per FRAX score) DEXA (modify frequency per FRAX score) [place] Start: 2008 PNEUMOCOCCAL: 65+ (1 - PCV) PNEUMOCOCCAL: 65+ (1 - PCV) [facility] Start: 2006 Annual Wellness Visi t (AWV) Annual Wellness Visit (AWV) [place] Start: 1998 Screening for osteoporosis DEXA (modify frequency per FRAX score) [place] Start: 1993 Shingles Vaccine (1 of 2) Shingles Vaccine (1 of 2) [place] Start: 1993 SHINGRIX VACCINE (1 of 2) SHINGRIX VACCINE (1 of 2) [facility] Start: 1962 DTaP/Tdap/Td vaccine (1 - Tdap) DTaP/Tdap/Td vaccine (1 - Tdap) [place] Start: 1962 Urine microalbumin profile DTAP,TDAP,TD (1 - Tdap) [facility] Start: 1959 COVID-19 Vaccine (1 of 2) COVID-19 Vaccine (1 of 2) [facility] Work Phone: Start: 1954 DTaP/Tdap/Td vaccine (1 - Tdap) DTaP/Tdap/Td vaccine (1 - Tdap) [facility] Work Phone: Start: 1943 Hepatitis C screening Hepatitis C sc reen [facility] Work Phone: End: 11-02-2020 Brain Natriuretic Peptide [facility] Work Phone: Comment on above: One Time for 1 Occur rences starting 11/02/2020 until 11/02/2020 End: 11-02-2020 Comprehensive metabolic 2000 panel Comprehensive Metabolic Panel Lab STAT One Time for 1 Occurrences starting 11/02/2020 until 11/02/2020 [facility] Work Phone: Comment on above: One Time for 1 Occur rences starting 11/02/2020 until 11/02/2020 End: 11-02-2020 CT Abdomen and Pelvis W contrast IV CT Abdomen Pelvis W Contrast Imaging STAT Once for 1 Occurrences starting 11/02/2020 until 11/02/2020 [facility] Work Phone: Comment on above: Once for 1 Occurrenc es starting 11/02/2020 until 11/02/2020 End: 11-02-2020 CTA Chest W WO (PE study) CTA Chest W WO (PE study) Imaging STAT Once for 1 Occurrences starting 11/02/2020 until 11/02/2020 [facility] Work Phone: Comment on above: Once for 1 Occurrenc es starting 11/02/2020 until 11/02/2020 Culture, Blood [facility] [place] [place] End: 11-02-2020 Culture, Blood 1 Culture, Blood 1 Microbiology STAT One Time for 1 Occurrences starting 11/02/2020 until 11/02/2020 [facility] Work Phone: Comment on above: One Time for 1 Occur rences starting 11/02/2020 until 11/02/2020 Culture, Blood 2 [facility] [place] [place] End: 11-02-2020 Culture, Blood 2 Culture, Blood 2 Microbiology STAT One Time for 1 Occurrences starting 11/02/2020 until 11/02/2020 [facility] Work Phone: Comment on above: One Time for 1 Occur rences starting 11/02/2020 until 11/02/2020 EKG 12 Lead - Chest Pain EKG 12 Lead - Chest Pain ECG STAT 11/02/2020 1:34 PM EST [facility] Work Phone: End: 11-02-2020 Hemogram (CBC) w/Auto Diff Hemogram (CBC) w/Auto Diff Lab STAT One Time for 1 Occurrences starting 11/02/2020 until 11/02/2020 [facility] Work Phone: Comment on above: One Time for 1 Occur rences starting 11/02/2020 until 11/02/2020 Initiate Oxygen Ther apy Protocol Initiate Oxygen Therapy Protocol Respiratory Care Routine Daily until discontinued starting 03/06/2020 [facility] [place] Comment on above: Daily until disconti nued starting 03/06/2020 End: 11-02-2020 Lactic Acid, Plasma [facility] Work Phone: Comment on above: One Time for 1 Occur rences starting 11/02/2020 until 11/02/2020 End: 11-02-2020 Miscellaneous Sendout 1 [facility] Work Phone: Comment on above: One Time for 1 Occur rences starting 11/02/2020 until 11/02/2020 End: 11-02-2020 Protime-INR [facility] Work Phone: Comment on above: One Time for 1 Occur rences starting 11/02/2020 until 11/02/2020 End: 11-02-2020 Respiratory Panel, Molecular, with COVID-19 (Restricted: peds pts or suitable admitted adults) Respiratory Panel, Molecular, with COVID-19 (Restricted: peds pts or suitable admitted adults) Microbiology STAT One Time for 1 Occurrences starting 11/02/2020 until 11/02/2020 [facility] Work Phone: Comment on above: One Time for 1 Occur rences starting 11/02/2020 until 11/02/2020 Respiratory Panel, Molecular, with COVID-19 (Restricted: peds pts or suitable admitted adults) Respiratory Panel, Molecular, with COVID-19 (Restricted: peds pts or suitable admitted adults) Microbiology STAT 11/02/2020 3:33 PM EST [facility] Work Phone: End: 11-02-2020 Troponin x1 [facility] Work Phone: Comment on above: One Time for 1 Occur rences starting 11/02/2020 until 11/02/2020 End: 11-02-2020 Urinalysis Urinalysis Lab STAT One Time for 1 Occurrences starting 11/02/2020 until 11/02/[address] [facility] Work Phone: Comment on above: One Time for 1 Occur rences starting 11/02/2020 until 11/02/2020 End: 11-02-2020 XR CHEST PORTABLE XR CHEST PORTABLE Imaging STAT Once for 1 Occurrences starting 11/02/2020 until 11/02/2020 [facility] Work Phone: Comment on above: Once for 1 Occurrenc es starting 11/02/2020 until 11/02/2020 Immunizations Immunization Date Immunization Notes Care Provider Ruben simmons 08-31-2020 influenza, high dose seasonal, preservative-free Jame Kostasrachana [facility] Work Phone: 06-16-2018 influenza, high dose seasonal, preservative-free Cynthia [facility], [place] 08-07-2017 influenza, high dose seasonal, preservative-free Cynthia [facility] [place] 03-26-2017 pneumococcal polysaccharide vaccine, 23 valent Cynthia [facility], [place] 11-11-2016 pneumococcal conjuga te vaccine, 13 valent [facility], [place] 10-16-2016 influenza, high dose seasonal, preservative-free Cynthia Uribe MD Work Phone: [facility] Work Phone: Payers Date Payer Category Payer Self-pay 2021 Medicaid [place] [facility] MEDICAID [id number] 2021-Present [phone] [address] [place] [address] Medicaid [id number] 2021 Medicare [place] [facility] MEDICARE [id number] 2021-Present [phone] [address] [place] [address] Medicare [id number] 2021 Medicare [id number] 2021 Unknown [id number] 2017 Unknown [employer] SU[employer] xxxxxxxxxxxx 2017-Present [address] [place] [address] xxxxxxxxxxxx [id number] 2017 Unknown [employer] [id number] 2017-Present [address] [place] [address] [id number] 2014 Medicare MEDICARE MEDICAR E PART A AND B xxxxxxxxxxx 2014-Present [phone] [place] [address] xxxxxxxxxxx [id number] 2014 Medicare [id number] Unknown Unknown [id number] Unknown [id number] Unknown [id number] Unknown [id number] Unknown [id number] Unknown [id number] Unknown [id number] Unknown [id number] Unknown [id number] Unknown [id number] Unknown [id number] Unknown [id number] Unknown [id number] Unknown [id number] Social History Date Type Detail Facility Start: 08-31-2019 End: 03-07-2020 Tobacco smoking status [facility]IS Former smoker [place], [place] End: 09-22-1984 History of tobacco use Current smoker [place] End: 09-22-1984 History of tobacco use Cigarette Smoker [place] Start: 08-31-2019 End: 03-07-2020 Alcohol intake Current non-drinker of alcohol (finding) [facility] Work Phone: Start: 1945 Sex Assigned At Not on file [place], [place] Start: 11-02-2020 End: 05-10-2021 Tobacco use and exposure Never used [facility] Work Phone: Start: 05-26-2022 End: 06-05-2022 Exposure to SARS-CoV-2 (event) Not sure [facility] Work Phone: Start: 11-09-2018 Alcohol intake No [place], [place] Former smoker Former smoker [facility] Work Phone: Start: 06-05-2022 Tobacco smoking status NHIS Tobacco smoking consumption unknown [facility] Start: 1945 Sex Assigned At Female [facility] Start: 12-23-2024 End: 12-23-2024 Sex Female (finding) [facility] NEGATED: Highlighted row - - [facility] Work Phone: Goals Date Patient Goal Desired Activity /State Comment on above: Patient Self-Managem ent Goal for Health Maintenance Goal: maintain control of BP, take meds as directed Barriers: none Plan for overcoming my barriers: follow med regimen as directed by provider. Anticipated Goal Completion Date: reeval at 03/08 appt. Formatting of this n ote might be different from the original. Patient Self-Management Goal for Health Maintenance Goal: maintain control of BP, take meds as directed Barriers: none Plan for overcoming my barriers: follow med regimen as directed by provider. Anticipated Goal Completion Date: reeval at 03/08 appt. Functional Status Date Assessment Result Facility NEGATED: Highlighted row Functional performance Functional status health issues are not documented Disease -[facility] Work Phone: Mental Status Date Assessment Result Facility NEGATED: Highlighted row Cognitive function [Interpretation] Cognitive status health issues are not documented Disease -[facility] Work Phone: Clinical Notes 08-28-2021 to 06-[facility]-20[facility] JACINTO Castro - 06/05/2022 11:39 PM EDT Note Date & Type Note Facility 06-24-2022 Note HNO ID: [id number] Author: LATRICE Munoz Service: Social Work Author Type: [employer] Type: Plan of Care Filed: 06/24/2022 1:44 PM Note Text: Attestation signed by John Penny MD at 06/25/2022 7:30 AM agree BEHAVIORAL HEALTH INPATIENT INTERDISCIPLINARY TREATMENT PLAN UPDATE DATE INITIATED: 06/24/2022 11:00 AM Patient's Goal of Treatment: unable to assess due to mental status Active Hospital Problems *Dementia with behavioral disturbance Criteria for Discharge: Elimination/reduction of presenting behavior: wandering, paranoid, dementia Estimated length of stay: Pt to discharge on this date Interdisciplinary Treatment Plan Date Initiated: 06/06/22 Time Initiated: 501 Patient Participation in Initial Treatment Plan: No Patient unable to participate due to : Mental status Other Participants: N/A Strengths/Assets: Social support;Stable living situation Limitations: Cognitive impairment;Physically dependent on others Precautions indicated: Routine Precautions Individualized problems: Alteration in thoughts and perception;Cognitive impairment Problem - Discharge Needs Date Initiated: 06/06/22 Time Initiated: 503 Discharge Needs: Patient/Family will participate in the development of the Discharge Aftercare Plan;Assess for appropriate level of care Interventions - Nursing: Obtain baseline level of functioning on admission;Administer medications as indicated and monitor patient for effect daily;Provide non-judgmental supportive, empathetic and comprehensive trauma informed care daily and as needed Interventions - Social Work: Assess for appropriate level of care and initiate referral upon admission or as needed;Complete PASSR as needed Interventions - Therapy: Promote medication compliance as needed Problem - Cognitive Impairment As evidenced by: Decline in activities of daily living;Disorientation;Poor impulse control;Wandering or pacing;Hallucinations;Delusions; Confusion Disorientation: place;time Date Intiated: 06/06/22 Time Initiated: 506 Short Term Goals: Patient will demonstrate decrease in anxiety;Patient will demonstrate decrease in agitation/aggression;Patient will comply with medication and treatment Goal hours of sleep: 8 Target Date Short Term Goals: 06/28/22 Progress Towards Short Term Goals: Progressing [employer] Att[employer] Goals: Patient will have improved insight into illness;Patient will have achieved optimal level of functioning;Patient will verbalize benefits of compliance with medication and treatment after discharge Target Date Long-Term Goals: 07/01/22 Progress Towards [employer] Attendant Goals: Progressing Interventions - Nursing: Offer frequent toileting as needed;Reorient the patient as needed;Obtain info regarding pre-existing stressors and calming methods/influences on admission Interventions - Social Work: Assist with identifying community/social supports daily or as needed;Create safety plan as needed Interventions - Therapy: Offer constructive activities to channel impulses as needed;Promote engagement in sensory exploration as needed;Promote reality orientation;Offer a routine schedule and encourage milieu involvement daily and as needed Problem - Mood Disorder As evidenced by: Complusive Behaviors;Delusions;Hallucinatio ns;Impaired Judgement;Inability to care for self Date Initiated: 06/06/22 Time Initiated: 509 Mood Disorder: Depression Short Term Goals: Patient will report decrease in identified symptoms;Patient will report decrease in suicidal ideation/self-harm behavior;Patient will identify alternative coping skills to deal with symptoms Target Date Short Term Goals: 06/27/22 Progress Towards Short Term Goals: Progressing [employer] Attendant Goals: Patient will demonstrate optimal level of functioning;Patient/support system will verbalize intent to comply with medication and treatment after discharge;Patient expresses examples of optimism and hope for the future Target Date [employer] Attendant Goals: 06/29/22 Progress Towards Long-Term Goals: Progressing Interventions - Nursing: Obtain baseline level of functioning on admission;Administer medications as indicated and monitor patient for effect daily;Provide education to the patient and/or family about the disease process and management as appropriate daily and as needed;Encourage independence with daily functioning daily and as needed Interventions - Social Work: Coordination with family as needed;Coordination with outpatient providers as needed Interventions - Therapy: Assist patient in accessing and recognizing positive experiences;Educate on and promote grounding techniques and healthy distraction as needed;Encourage group attendance and participation daily and as needed;Encourage self-reflection to build insig (more content not included)... [facility] 06-24-2022 Note HNO ID: [id number] Author: Robyn Roman RN Service: Psychiatry Author Type: Registered Nurse Type: Plan of Care Filed: 06/24/2022 7:44 AM Note Text: Attestation signed by John Penny MD at 06/24/2022 8:27 AM Agree BEHAVIORAL HEALTH INPATIENT INTERDISCIPLINARY TREATMENT PLAN UPDATE DATE INITIATED: 06/24/2022 7:42 AM Patient's Goal of Treatment: unable to assess due to mental status Active Hospital Problems *Dementia with behavioral disturbance Criteria for Discharge: Elimination/reduction of presenting behavior: Dementia with Behavioral Disturbances Estimated length of stay: 5-7 days Interdisciplinary Treatment Plan Date Initiated: 06/06/22 Time Initiated: 501 Patient Participation in Initial Treatment Plan: No Patient unable to participate due to : Mental status Other Participants: N/A Strengths/Assets: Social support;Stable living situation Limitations: Cognitive impairment;Physically dependent on others Precautions indicated: Routine Precautions Individualized problems: Alteration in thoughts and perception;Cognitive impairment Problem - Discharge Needs Date Initiated: 06/06/22 Time Initiated: 503 Discharge Needs: Patient/Family will participate in the development of the Discharge Aftercare Plan;Assess for appropriate level of care Interventions - Nursing: Obtain baseline level of functioning on admission;Administer medications as indicated and monitor patient for effect daily;Provide education to the patient and/or family about the disease process and management as appropriate daily and as needed;Provide non-judgmental supportive, empathetic and comprehensive trauma informed care daily and as needed;Use therapeutic communication skills to develop patient trust and a nurse-patient relationship daily and as needed;Encourage patient participation in milieu activities daily and as needed;Provide a quiet, restful environment to promote sleep/rest daily and as needed;Monitor nutritional intake daily;Assist with activities of daily living, utilizing any necessary assistive devices daily and as needed Interventions - Social Work: Assess for appropriate level of care and initiate referral upon admission or as needed;Complete PASSR as needed Interventions - Therapy: Develop and discuss leisure education plan;Help patient to identify people, places and things that support recovery and stabilization of mental health;Promote ongoing practice of effective coping strategies daily and as needed Problem - Cognitive Impairment As evidenced by: Decline in activities of daily living;Disorientation;Poor impulse control;Wandering or pacing;Hallucinations;Delusions; Confusion Disorientation: place;time Date Intiated: 06/06/22 Time Initiated: 0507 Short Term Goals: Patient will demonstrate decrease in anxiety;Patient will demonstrate decrease in agitation/aggression;Patient will comply with medication and treatment;Patient will demonstrate sleeping this number of hours per night;Patient will not harm self Goal hours of sleep: 8 Target Date Short Term Goals: 06/26/22 Progress Towards Short Term Goals: Progressing Long-Term Goals: Patient will have improved insight into illness;Patient will have achieved optimal level of functioning;Patient will verbalize benefits of compliance with medication and treatment after discharge;Patient will participate in cognitive, physical and social activities;Patient will display nonviolent behavior towards others, with aid of medication and supportive therapy Target Date Long-Term Goals: 06/28/22 Progress Towards Gallery [employer] Attendant Goals: Progressing Interventions - Nursing: Offer frequent toileting as needed;Reorient the patient as needed;Obtain baseline level of functioning on admission;Obtain info regarding pre-existing stressors and calming methods/influences on admission;Administer medications as indicated and monitor patient for effect daily;Provide education to the patient and/or family about the disease process and management as appropriate daily and as needed;Provide non-judgmental supportive, empathetic and comprehensive trauma informed care daily and as needed;Use therapeutic communication skills to develop patient trust and a nurse-patient relationship daily and as needed;Encourage patient participation in milieu activities daily and as needed;Provide a quiet, restful environment to promote sleep/rest daily and as needed;Monitor nutritional intake daily;Assist with activities of daily living, utilizing any necessary assistive devices daily and as needed Interventions - Social Work: Assist with identifying community/social supports daily or as needed;Create safety plan as needed Interventions - Therapy: Educate on and promote grounding techniques and (more content not included)... [facility] 06-24-2022 Note HNO ID: [id number] Author: John Penny MD Service: Psychiatry Author Type: Physician Type: Progress Notes Filed: 06/24/2022 8:16 AM Note Text: INPATIENT PROGRESS NOTE PSYCHIATRY PATIENT: Chay Teague DATE OF SERVICE: June 24, 2022 The Interdisciplinary team met and reviewed treatment goals and discharge planning CHEIF COMPLANT: Seen in day area Improving Discussed in team Plan to be discharged later on today to Extended care facility 1-HPI: Patient is compliant with medications No adverse reactions to medications Sleep is good 7 hrs Appetite is good Nursing staff updated notes is reviewed. 1340: Patient very restless and banging on table and yelling out disturbing the unit. PRN Versed IM 0.5mg given for anxiety at this time. 2221: She was restless at this time screaming for help. She was not able to follow redirection. Medicated with Ativan 0.5 mg PO. Will continue to monitor. Scarlett Snider [employer] most recent and updated notes is reviewed. Medical comorbidity is reviewed REVIEW OF SYSTEMS: Review Of The Other Psychiatry Symptoms Depression: no reported depression symptomes Tiffanie: no reported hypomanic or manic episodes. Psychosis:no reported auditory / visual hallucination or paranoid ideation. SANDY: no reported symptoms of SANDY OCD:no reported symptoms of OCD. PTSD:no reported PTSD symptoms Confusion:no reported evidence of confusion Neurological:Denies Cranial nerve symptoms,motor symptoms,sensory symptoms,sphenctric symptoms. G I Symptoms:Denies Nausea,vomiting,constipation,rebeca rrhea. PAIN: Denies pain All Other Systems reviewed and Negative. 2-EXAMINATION: MENTAL STATUS EXAMINATION: Appearance: seen in day area Behavior: variable Orientation: Disoriented to Time and Situation Speech/Language: yes and no answers. Otherwise unproductive Mood/Affect: Flat Thought Form: Tangential Thought Content: Vague Suicidal Ideations: No suicidal ideation, intent or plan Homicidal Ideations: No homicidal ideation, intent or plan. Insight: Limited Judgment: Impaired Memory/Cognition: Moderately Impaired Psychomotor: Retarded CONSTITUTIONAL EXAMINATION: Psychomotor Activity: variable VITAL SIGNS BP 132/55 Pulse 62 Temp 36.3 ?C (97.3 ?F) Resp 16 Ht 155 cm (5' 1.02) Wt 82.1 kg (181 lb) SpO2 93% BMI 34.17 kg/m? Current Facility-Administered Medications Medication Dose Route Frequency nicotine polacrilex 2 mg gum (NICORETTE) 2 mg ORAL q 2 H PRN amLODIPine 5 mg tab(s) (NORVASC) 5 mg ORAL DAILY ergocalciferol (vitamin D2) 50,000 Units cap(s) (DRISDOL) 50,000 Units ORAL 1/WK levothyroxine 25 mcg tab(s) (SYNTHROID) 25 mcg ORAL DAILY (6 AM) traZODone 50 mg tab(s) (DESYREL) 50 mg ORAL AT BEDTIME PRN rivaroxaban 20 mg tab(s) (XARELTO) 20 mg ORAL DAILY WITH BREAKFAST donepezil 5 mg tab(s) (ARICEPT) 5 mg ORAL DAILY acetaminophen 650 mg tab(s) (TYLENOL) 650 mg ORAL q 6 H PRN aluminum-magnesium hydroxide-simethicone 200-200-20 mg/5 mL 30 mL (MAALOX,MYLANTA,MAG-AL PLUS) 30 mL ORAL q 4 H PRN magnesium hydroxide 400 mg/5 mL 15 mL (MOM) 15 mL ORAL DAILY PRN nicotine polacrilex 2 mg gum (NICORETTE) 2 mg ORAL q 1 H PRN fluPHENAZine 2.5 mg tab(s) (PROLIXIN) 2.5 mg ORAL q 6 H PRN Or fluPHENAZine hydrochloride 2.5 mg short-acting injection (PROLIXIN) 2.5 mg INTRAMUSCULAR q 6 H PRN metoprolol tartrate (short acting) 25 mg tab(s) (LOPRESSOR) 25 mg ORAL q 12 H docusate sodium 100 mg cap(s) (COLACE) 100 mg ORAL BID polyethylene glycol 3350 17 g packet (MIRALAX, GLYCOLAX) 17 g ORAL DAILY divalproex sprinkle 375 mg cap(s) (DEPAKOTE SPRINKLES) 375 mg ORAL BID traZODone 75 mg tab(s) (DESYREL) 75 mg ORAL DAILY AT 6 PM LORazepam 0.5 mg tab(s) (ATIVAN) 0.5 mg ORAL q 6 H PRN Or midazolam 0.5 mg injection (VERSED) 0.5 mg INTRAMUSCULAR q 6 H PRN OLANZapine 5 mg tab(s) (ZyPREXA) 5 mg ORAL BID 9a/5p WBC (k/uL) Date Value 06/05/2022 8.55 RBC (m/uL) Date Value 06/05/2022 4.43 Hemoglobin (g/dL) Date Value 06/05/2022 13.6 Hematocrit (%) Date Value 06/05/2022 41.2 MCV (fL) Date Value 06/05/2022 93.0 MCH (pg) Date Value 06/05/2022 30.7 MCHC (g/dL) Date Value 06/05/2022 33.0 RDW-CV (%) Date Value 06/05/2022 14.5 Platelet Count (k/uL) Date Value 06/05/2022 283 MPV (fL) Date Value 06/05/2022 10.1 Glucose (mg/dL) Date Value 06/05/2022 91 BUN (mg/dL) Date Value 06/05/2022 28 (H) Creatinine (mg/dL) Date Value 06/05/2022 0.84 Sodium (mmol/L) Date Value 06/05/2022 143 Potassium (mmol/L) Date Value 06/05/2022 3.8 Chloride (mmol/L) Date Value 06/05/2022 107 (H) CO2 (mmol/L) Date Value 06/05/2022 27 Protein, Total (g/dL) Date Value 06/05/2022 6.9 Albumin (g/dL) Date Value 06/05/2022 4.0 Calcium, Total (mg/dL) Date Value 06/05/2022 9.5 Alkaline Phosphatase (U/L) Date Value 06/05/2022 92 Bilirubin, Total (mg/dL) Date Value 05/23 (more content not included)... [facility] 06-23-2022 Note HNO ID: [id number] Author: Trisha Mcgill MD Service: Psychiatry Author Type: Physician Type: Progress Notes Filed: 06/23/2022 8:32 PM Note Text: PROGRESS NOTE BEHAVIORAL HEALTH SERVICE DATE: 06/23/2022 SERVICE TIME: 1435 The Interdisciplinary team met and reviewed treatment goals and discharge planning. Subjective This patient has been more disorganized and agitated today. Banging on the table and yelling. Objective PHYSICAL EXAM: BP 132/55 Pulse 62 Temp 36.3 ?C (97.3 ?F) Resp 16 Ht 155 cm (5' 1.02) Wt 82.1 kg (181 lb) SpO2 93% BMI 34.17 kg/m? MENTAL STATUS EXAMINATION: Appearance: Casually dressed, Appears stated age, and Appropriate for age Behavior: Disorganized, Perseverative, Withdrawn, and Hostile Orientation: Person Speech/Language: Inappropriately Loud , Rapid , and Rambling Mood/Affect: Being Irritable, Labile, and Expressing Loss of Pleasure Thought Form: Flight of ideas, Loose Associations, Perseveration, and Tangential Thought Content: Delusions: Persecutory Vague Suicidal Ideations: No suicidal ideation, intent or plan. Homicidal Ideations: No homicidal ideation, intent or plan. Insight: Insight is absent Judgment: Lacks social judgment, Lacks personal judgment, and Judgment grossly impaired Memory/Cognition: Severly Impaired Psychomotor: Retarded NEW PROBLEMS ON UNIT SINCE LAST ENCOUNTER: None Current Facility-Administered Medications Medication Dose Route Frequency nicotine polacrilex 2 mg gum (NICORETTE) 2 mg ORAL q 2 H PRN amLODIPine 5 mg tab(s) (NORVASC) 5 mg ORAL DAILY ergocalciferol (vitamin D2) 50,000 Units cap(s) (DRISDOL) 50,000 Units ORAL 1/WK levothyroxine 25 mcg tab(s) (SYNTHROID) 25 mcg ORAL DAILY (6 AM) traZODone 50 mg tab(s) (DESYREL) 50 mg ORAL AT BEDTIME PRN rivaroxaban 20 mg tab(s) (XARELTO) 20 mg ORAL DAILY WITH BREAKFAST donepezil 5 mg tab(s) (ARICEPT) 5 mg ORAL DAILY acetaminophen 650 mg tab(s) (TYLENOL) 650 mg ORAL q 6 H PRN aluminum-magnesium hydroxide-simethicone 200-200-20 mg/5 mL 30 mL (MAALOX,MYLANTA,MAG-AL PLUS) 30 mL ORAL q 4 H PRN magnesium hydroxide 400 mg/5 mL 15 mL (MOM) 15 mL ORAL DAILY PRN nicotine polacrilex 2 mg gum (NICORETTE) 2 mg ORAL q 1 H PRN fluPHENAZine 2.5 mg tab(s) (PROLIXIN) 2.5 mg ORAL q 6 H PRN Or fluPHENAZine hydrochloride 2.5 mg short-acting injection (PROLIXIN) 2.5 mg INTRAMUSCULAR q 6 H PRN metoprolol tartrate (short acting) 25 mg tab(s) (LOPRESSOR) 25 mg ORAL q 12 H docusate sodium 100 mg cap(s) (COLACE) 100 mg ORAL BID polyethylene glycol 3350 17 g packet (MIRALAX, GLYCOLAX) 17 g ORAL DAILY divalproex sprinkle 375 mg cap(s) (DEPAKOTE SPRINKLES) 375 mg ORAL BID traZODone 75 mg tab(s) (DESYREL) 75 mg ORAL DAILY AT 6 PM LORazepam 0.5 mg tab(s) (ATIVAN) 0.5 mg ORAL q 6 H PRN Or midazolam 0.5 mg injection (VERSED) 0.5 mg INTRAMUSCULAR q 6 H PRN [START ON 06/24/2022] OLANZapine 5 mg tab(s) (ZyPREXA) 5 mg ORAL BID 9a/ DATA: Diagnostic tests reviewed for today's visit: Most recent labs Assessment/Plan DIAGNOSIS: PRIMARY: Dementia Alzheimer's With Late Onset with behavioral disturbance. GAF: 55 -60-51 Moderate symptoms or moderate difficulty in social, occupational or school functioning. RISK ASSESSMENT: Suicide: low Homicide: low Deliberate Self-Harm: low Aggression: moderate Imminent Physical Self Impairment: high INFORMED CONSENT: Yes, completed with the Designated POA over Healthcare. Discussed the risks, benefits and alternatives to the medication(s) recommended. Consent was given. INTERVENTION: Biological: I will increase her olanzapine to 10 mg daily. Psychological: disorganized and agitated. Social: working on disposition. DISCHARGE PLANNING: when stable. SIGNATURE: Trisha Mcgill MD PATIENT NAME: Chay Teague DATE: June 23, 2022 TIME: 8:22 PM [facility] 06-21-2022 Note HNO ID: [id number] Author: Trisha Mcgill MD Service: Psychiatry Author Type: Physician Type: Progress Notes Filed: 06/21/2022 9:38 PM Note Text: PROGRESS NOTE BEHAVIORAL HEALTH SERVICE DATE: 06/21/2022 SERVICE TIME: 1135 The Interdisciplinary team met and reviewed treatment goals and discharge planning. Subjective This patient remains confused and disorganized but has been under good control., compliant with her medications and the martinez routine. Objective PHYSICAL EXAM: BP 167/71 Pulse 87 Temp 36.3 ?C (97.3 ?F) (Oral) Resp 20 Ht 155 cm (5' 1.02) Wt 82.1 kg (181 lb) SpO2 99% BMI 34.17 kg/m? MENTAL STATUS EXAMINATION: Appearance: Appears stated age, Appropriate for age, Overweight, and In hospital gown Behavior: Disorganized, Perseverative, and Passive Orientation: Person Speech/Language: Soft , Rambling, Underproductive, and Slow Mood/Affect: Euthymic and Having Trouble Concentrating Thought Form: Egocentric, Loose Associations, and Perseveration Thought Content: Vague Suicidal Ideations: No suicidal ideation, intent or plan. Homicidal Ideations: No homicidal ideation, intent or plan. Insight: Insight is absent Judgment: Lacks social judgment, Lacks personal judgment, and Judgment grossly impaired Memory/Cognition: Moderately Impaired Psychomotor: Retarded NEW PROBLEMS ON UNIT SINCE LAST ENCOUNTER: None Current Facility-Administered Medications Medication Dose Route Frequency nicotine polacrilex 2 mg gum (NICORETTE) 2 mg ORAL q 2 H PRN amLODIPine 5 mg tab(s) (NORVASC) 5 mg ORAL DAILY ergocalciferol (vitamin D2) 50,000 Units cap(s) (DRISDOL) 50,000 Units ORAL 1/WK levothyroxine 25 mcg tab(s) (SYNTHROID) 25 mcg ORAL DAILY (6 AM) traZODone 50 mg tab(s) (DESYREL) 50 mg ORAL AT BEDTIME PRN rivaroxaban 20 mg tab(s) (XARELTO) 20 mg ORAL DAILY WITH BREAKFAST donepezil 5 mg tab(s) (ARICEPT) 5 mg ORAL DAILY acetaminophen 650 mg tab(s) (TYLENOL) 650 mg ORAL q 6 H PRN aluminum-magnesium hydroxide-simethicone 200-200-20 mg/5 mL 30 mL (MAALOX,MYLANTA,MAG-AL PLUS) 30 mL ORAL q 4 H PRN magnesium hydroxide 400 mg/5 mL 15 mL (MOM) 15 mL ORAL DAILY PRN nicotine polacrilex 2 mg gum (NICORETTE) 2 mg ORAL q 1 H PRN fluPHENAZine 2.5 mg tab(s) (PROLIXIN) 2.5 mg ORAL q 6 H PRN Or fluPHENAZine hydrochloride 2.5 mg short-acting injection (PROLIXIN) 2.5 mg INTRAMUSCULAR q 6 H PRN metoprolol tartrate (short acting) 25 mg tab(s) (LOPRESSOR) 25 mg ORAL q 12 H docusate sodium 100 mg cap(s) (COLACE) 100 mg ORAL BID polyethylene glycol 3350 17 g packet (MIRALAX, GLYCOLAX) 17 g ORAL DAILY divalproex sprinkle 375 mg cap(s) (DEPAKOTE SPRINKLES) 375 mg ORAL BID OLANZapine 5 mg tab(s) (ZyPREXA) 5 mg ORAL DAILY traZODone 75 mg tab(s) (DESYREL) 75 mg ORAL DAILY AT 6 PM LORazepam 0.5 mg tab(s) (ATIVAN) 0.5 mg ORAL q 6 H PRN Or midazolam 0.5 mg injection (VERSED) 0.5 mg INTRAMUSCULAR q 6 H PRN DATA: Diagnostic tests reviewed for today's visit: Most recent labs Assessment/Plan DIAGNOSIS: PRIMARY: Dementia Alzheimer's With Late Onset with behavioral distruabnce GAF: 55 -60-51 Moderate symptoms or moderate difficulty in social, occupational or school functioning. RISK ASSESSMENT: Suicide: low Homicide: low Deliberate Self-Harm: low Aggression: low Imminent Physical Self Impairment: low INFORMED CONSENT: Yes, completed with the Designated POA over Healthcare. Discussed the risks, benefits and alternatives to the medication(s) recommended. Consent was given. INTERVENTION: Biological: compliant with her medications. Psychological: confused but under good control. Social: working on placement. DISCHARGE PLANNING: Discharge by perhaps Friday. SIGNATURE: Trisha Mcgill MD PATIENT NAME: Chay Teague DATE: June 21, 2022 TIME: 9:24 PM [facility] 06-21-2022 Note HNO ID: [id number] Author: Teo López RN Service: Behavioral Health Author Type: Registered Nurse Type: Plan of Care Filed: 06/21/2022 9:38 AM Note Text: BEHAVIORAL HEALTH INPATIENT INTERDISCIPLINARY TREATMENT PLAN UPDATE DATE INITIATED: 06/21/2022 9:37 AM Patient's Goal of Treatment: unable to assess due to mental status Active Hospital Problems *Dementia with behavioral disturbance (HCC) Criteria for Discharge: Elimination/reduction of presenting behavior: Dementia with behavioral disturbances Estimated length of stay: greater than 2 weeks Interdisciplinary Treatment Plan Date Initiated: 06/06/22 Time Initiated: 0502 Patient Participation in Initial Treatment Plan: No Patient unable to participate due to : Mental status Other Participants: N/A Strengths/Assets: Social support;Stable living situation Limitations: Cognitive impairment;Physically dependent on others Precautions indicated: Routine Precautions Individualized problems: Alteration in thoughts and perception;Cognitive impairment Problem - Discharge Needs Date Initiated: 06/06/22 Time Initiated: 0504 Discharge Needs: Patient/Family will participate in the development of the Discharge Aftercare Plan;Assess for appropriate level of care Interventions - Nursing: Obtain baseline level of functioning on admission;Administer medications as indicated and monitor patient for effect daily;Provide education to the patient and/or family about the disease process and management as appropriate daily and as needed;Provide non-judgmental supportive, empathetic and comprehensive trauma informed care daily and as needed;Use therapeutic communication skills to develop patient trust and a nurse-patient relationship daily and as needed;Encourage patient participation in milieu activities daily and as needed;Provide a quiet, restful environment to promote sleep/rest daily and as needed;Monitor nutritional intake daily;Assist with activities of daily living, utilizing any necessary assistive devices daily and as needed Interventions - Social Work: Assess for appropriate level of care and initiate referral upon admission or as needed;Complete PASSR as needed Interventions - Therapy: Develop and discuss leisure education plan;Help patient to identify people, places and things that support recovery and stabilization of mental health;Promote ongoing practice of effective coping strategies daily and as needed Problem - Cognitive Impairment As evidenced by: Decline in activities of daily living;Disorientation;Poor impulse control;Wandering or pacing;Hallucinations;Delusions; Confusion Disorientation: place;time Date Intiated: 06/06/22 Time Initiated: 0507 Short Term Goals: Patient will demonstrate decrease in anxiety;Patient will demonstrate decrease in agitation/aggression;Patient will comply with medication and treatment;Patient will demonstrate sleeping this number of hours per night;Patient will not harm self Goal hours of sleep: 8 Target Date Short Term Goals: 06/26/22 Progress Towards Short Term Goals: Progressing Gallery Or Museum Attendant Goals: Patient will have improved insight into illness;Patient will have achieved optimal level of functioning;Patient will verbalize benefits of compliance with medication and treatment after discharge;Patient will participate in cognitive, physical and social activities;Patient will display nonviolent behavior towards others, with aid of medication and supportive therapy Target Date Gallery Or Museum Attendant Goals: 06/28/22 Progress Towards Long-Term Goals: Progressing Interventions - Nursing: Offer frequent toileting as needed;Reorient the patient as needed;Obtain baseline level of functioning on admission;Obtain info regarding pre-existing stressors and calming methods/influences on admission;Administer medications as indicated and monitor patient for effect daily;Provide education to the patient and/or family about the disease process and management as appropriate daily and as needed;Provide non-judgmental supportive, empathetic and comprehensive trauma informed care daily and as needed;Use therapeutic communication skills to develop patient trust and a nurse-patient relationship daily and as needed;Encourage patient participation in milieu activities daily and as needed;Provide a quiet, restful environment to promote sleep/rest daily and as needed;Monitor nutritional intake daily;Assist with activities of daily living, utilizing any necessary assistive devices daily and as needed Interventions - Social Work: Assist with identifying community/social supports daily or as needed;Create safety plan as needed Interventions - Therapy: Educate on and promote grounding techniques and healthy distraction as needed;Encourage group attendance and participation daily and as needed;Offer a routine schedule and encourage milieu involvement daily and as needed;Offer constructive activities to ch (more content not included)... [facility] 06-19-2022 Note HNO ID: [id number] Author: Trisha Mcgill MD Service: Psychiatry Author Type: Physician Type: Progress Notes Filed: 06/20/2022 12:01 AM Note Text: PROGRESS NOTE BEHAVIORAL HEALTH SERVICE DATE: 06/19/2022 SERVICE TIME: 1245 The Interdisciplinary team met and reviewed treatment goals and discharge planning. Subjective This patient remains confused and disorganized and her behavior is good during the day but she becomes more confused and agitated at night. Objective PHYSICAL EXAM: BP 140/67 Pulse 85 Temp 36.3 ?C (97.3 ?F) (Oral) Resp 18 Ht 155 cm (5' 1.02) Wt 82.1 kg (181 lb) SpO2 99% BMI 34.17 kg/m? MENTAL STATUS EXAMINATION: Appearance: Appears stated age, Disheveled, Overweight, and In hospital gown Behavior: Disorganized and Perseverative Orientation: Person Speech/Language: Soft , Rapid , and Rambling Mood/Affect: Expressing Loss of Pleasure and Having Trouble Concentrating Thought Form: Egocentric, Loose Associations, Perseveration, and Tangential Thought Content: Vague Suicidal Ideations: No suicidal ideation, intent or plan. Homicidal Ideations: No homicidal ideation, intent or plan. Insight: Insight is absent Judgment: Lacks social judgment, Lacks personal judgment, and Judgment grossly impaired Memory/Cognition: Severly Impaired Psychomotor: Retarded NEW PROBLEMS ON UNIT SINCE LAST ENCOUNTER: None Current Facility-Administered Medications Medication Dose Route Frequency nicotine polacrilex 2 mg gum (NICORETTE) 2 mg ORAL q 2 H PRN amLODIPine 5 mg tab(s) (NORVASC) 5 mg ORAL DAILY ergocalciferol (vitamin D2) 50,000 Units cap(s) (DRISDOL) 50,000 Units ORAL 1/WK levothyroxine 25 mcg tab(s) (SYNTHROID) 25 mcg ORAL DAILY (6 AM) traZODone 50 mg tab(s) (DESYREL) 50 mg ORAL AT BEDTIME PRN rivaroxaban 20 mg tab(s) (XARELTO) 20 mg ORAL DAILY WITH BREAKFAST donepezil 5 mg tab(s) (ARICEPT) 5 mg ORAL DAILY LORazepam 0.5 mg tab(s) (ATIVAN) 0.5 mg ORAL q 6 H PRN Or midazolam (PF) 0.5 mg injection (VERSED) 0.5 mg INTRAMUSCULAR q 6 H PRN acetaminophen 650 mg tab(s) (TYLENOL) 650 mg ORAL q 6 H PRN aluminum-magnesium hydroxide-simethicone 200-200-20 mg/5 mL 30 mL (MAALOX,MYLANTA,MAG-AL PLUS) 30 mL ORAL q 4 H PRN magnesium hydroxide 400 mg/5 mL 15 mL (MOM) 15 mL ORAL DAILY PRN nicotine polacrilex 2 mg gum (NICORETTE) 2 mg ORAL q 1 H PRN fluPHENAZine 2.5 mg tab(s) (PROLIXIN) 2.5 mg ORAL q 6 H PRN Or fluPHENAZine hydrochloride 2.5 mg short-acting injection (PROLIXIN) 2.5 mg INTRAMUSCULAR q 6 H PRN metoprolol tartrate (short acting) 25 mg tab(s) (LOPRESSOR) 25 mg ORAL q 12 H docusate sodium 100 mg cap(s) (COLACE) 100 mg ORAL BID polyethylene glycol 3350 17 g packet (MIRALAX, GLYCOLAX) 17 g ORAL DAILY divalproex sprinkle 375 mg cap(s) (DEPAKOTE SPRINKLES) 375 mg ORAL BID OLANZapine 5 mg tab(s) (ZyPREXA) 5 mg ORAL DAILY [START ON 06/20/2022] traZODone 50 mg tab(s) (DESYREL) 50 mg ORAL DAILY AT 6 PM DATA: Diagnostic tests reviewed for today's visit: Most recent labs Assessment/Plan DIAGNOSIS: PRIMARY: 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 RISK ASSESSMENT: Suicide: low Homicide: low Deliberate Self-Harm: low Aggression: low Imminent Physical Self Impairment: high INFORMED CONSENT: Yes, completed with the Designated POA over Healthcare. Discussed the risks, benefits and alternatives to the medication(s) recommended. Consent was given. INTERVENTION: Biological: I will make her trazodone earlier. Psychological: remains very disorganized Social: working on disposition. DISCHARGE PLANNING: when stable. SIGNATURE: Trisha Mcgill MD PATIENT NAME: Chay Teague DATE: June 19, 2022 TIME: 11:54 PM [facility] 06-19-2022 Note HNO ID: [id number] Author: Teo López RN Service: Behavioral Health Author Type: Registered Nurse Type: Plan of Care Filed: 06/19/2022 9:58 AM Note Text: BEHAVIORAL HEALTH INPATIENT INTERDISCIPLINARY TREATMENT PLAN UPDATE DATE INITIATED: 06/19/2022 9:57 AM Patient's Goal of Treatment: unable to assess due to mental status Active Hospital Problems *Dementia with behavioral disturbance (HCC) Criteria for Discharge: Elimination/reduction of presenting behavior: Dementia with behavioral disturbances Estimated length of stay: greater than 2 weeks Interdisciplinary Treatment Plan Date Initiated: 06/06/22 Time Initiated: 050 Patient Participation in Initial Treatment Plan: No Patient unable to participate due to : Mental status Other Participants: N/A Strengths/Assets: Social support;Stable living situation Limitations: Cognitive impairment;Physically dependent on others Precautions indicated: Routine Precautions Individualized problems: Alteration in thoughts and perception;Cognitive impairment Problem - Discharge Needs Date Initiated: 06/06/22 Time Initiated: 050 Discharge Needs: Patient/Family will participate in the development of the Discharge Aftercare Plan;Assess for appropriate level of care Interventions - Nursing: Obtain baseline level of functioning on admission;Administer medications as indicated and monitor patient for effect daily;Provide education to the patient and/or family about the disease process and management as appropriate daily and as needed;Provide non-judgmental supportive, empathetic and comprehensive trauma informed care daily and as needed;Use therapeutic communication skills to develop patient trust and a nurse-patient relationship daily and as needed;Assess for signs of escalating emotions and help identify ways to appropriately express feelings as needed;Encourage patient participation in milieu activities daily and as needed;Provide a quiet, restful environment to promote sleep/rest daily and as needed;Monitor nutritional intake daily;Assist with activities of daily living, utilizing any necessary assistive devices daily and as needed Interventions - Social Work: Assess for appropriate level of care and initiate referral upon admission or as needed;Complete PASSR as needed Interventions - Therapy: Develop and discuss leisure education plan;Help patient to identify people, places and things that support recovery and stabilization of mental health;Promote ongoing practice of effective coping strategies daily and as needed Problem - Cognitive Impairment As evidenced by: Decline in activities of daily living;Disorientation;Poor impulse control;Wandering or pacing;Hallucinations;Delusions; Confusion Disorientation: place;time Date Intiated: 06/06/22 Time Initiated: 0507 Short Term Goals: Patient will demonstrate decrease in anxiety;Patient will demonstrate decrease in agitation/aggression;Patient will comply with medication and treatment;Patient will demonstrate sleeping this number of hours per night;Patient will not harm self Goal hours of sleep: 8 Target Date Short Term Goals: 06/26/22 Progress Towards Short Term Goals: Progressing Long-Term Goals: Patient will have improved insight into illness;Patient will have achieved optimal level of functioning;Patient will participate in cognitive, physical and social activities;Patient will display nonviolent behavior towards others, with aid of medication and supportive therapy;Patient will verbalize benefits of compliance with medication and treatment after discharge Target Date Long-Term Goals: 06/28/22 Progress Towards Long-Term Goals: Progressing Interventions - Nursing: Offer frequent toileting as needed;Reorient the patient as needed;Obtain info regarding pre-existing stressors and calming methods/influences on admission;Obtain baseline level of functioning on admission;Administer medications as indicated and monitor patient for effect daily;Provide education to the patient and/or family about the disease process and management as appropriate daily and as needed;Provide non-judgmental supportive, empathetic and comprehensive trauma informed care daily and as needed;Assess for signs of escalating emotions and help identify ways to appropriately express feelings as needed;Use therapeutic communication skills to develop patient trust and a nurse-patient relationship daily and as needed;Encourage patient participation in milieu activities daily and as needed;Provide a quiet, restful environment to promote sleep/rest daily and as needed;Monitor nutritional intake daily;Assist with activities of daily living, utilizing any necessary assistive devices daily and as needed Interventions - Social Work: Assist with identifying community/social supports daily or as needed;Create safety plan as needed Interventions - Therapy: Educate on and promote grounding techniques (more content not included)... [facility] 06-17-2022 Note HNO ID: [id number] Author: Trisha Mcgill MD Service: Psychiatry Author Type: Physician Type: Progress Notes Filed: 06/17/2022 11:56 PM Note Text: PROGRESS NOTE BEHAVIORAL HEALTH SERVICE DATE: 06/17/2022 SERVICE TIME: 1255 The Interdisciplinary team met and reviewed treatment goals and discharge planning. Subjective This patient has been under much better control of her behavior. No longer tapping tables or yelling out. Objective PHYSICAL EXAM: BP (!) 125/48 Pulse 98 Temp 36.4 ?C (97.5 ?F) Resp 18 Ht 155 cm (5' 1.02) Wt 82.1 kg (181 lb) SpO2 94% BMI 34.17 kg/m? MENTAL STATUS EXAMINATION: Appearance: Appears stated age, Appropriate for age, Overweight, and In hospital gown Behavior: Disorganized, Perseverative, and Passive Orientation: Person Speech/Language: Soft and Underproductive Mood/Affect: Flat, Having Trouble Concentrating, and Withdrawn Thought Form: Egocentric and Perseveration Thought Content: Vague Suicidal Ideations: No suicidal ideation, intent or plan. Homicidal Ideations: No homicidal ideation, intent or plan. Insight: insight is absent Judgment: Lacks social judgment, Lacks personal judgment, and Judgment grossly impaired Memory/Cognition: Moderately Impaired Psychomotor: Retarded NEW PROBLEMS ON UNIT SINCE LAST ENCOUNTER: None Current Facility-Administered Medications Medication Dose Route Frequency nicotine polacrilex 2 mg gum (NICORETTE) 2 mg ORAL q 2 H PRN amLODIPine 5 mg tab(s) (NORVASC) 5 mg ORAL DAILY ergocalciferol (vitamin D2) 50,000 Units cap(s) (DRISDOL) 50,000 Units ORAL 1/WK levothyroxine 25 mcg tab(s) (SYNTHROID) 25 mcg ORAL DAILY (6 AM) traZODone 50 mg tab(s) (DESYREL) 50 mg ORAL AT BEDTIME PRN rivaroxaban 20 mg tab(s) (XARELTO) 20 mg ORAL DAILY WITH BREAKFAST donepezil 5 mg tab(s) (ARICEPT) 5 mg ORAL DAILY LORazepam 0.5 mg tab(s) (ATIVAN) 0.5 mg ORAL q 6 H PRN Or midazolam (PF) 0.5 mg injection (VERSED) 0.5 mg INTRAMUSCULAR q 6 H PRN acetaminophen 650 mg tab(s) (TYLENOL) 650 mg ORAL q 6 H PRN aluminum-magnesium hydroxide-simethicone 200-200-20 mg/5 mL 30 mL (MAALOX,MYLANTA,MAG-AL PLUS) 30 mL ORAL q 4 H PRN magnesium hydroxide 400 mg/5 mL 15 mL (MOM) 15 mL ORAL DAILY PRN nicotine polacrilex 2 mg gum (NICORETTE) 2 mg ORAL q 1 H PRN fluPHENAZine 2.5 mg tab(s) (PROLIXIN) 2.5 mg ORAL q 6 H PRN Or fluPHENAZine hydrochloride 2.5 mg short-acting injection (PROLIXIN) 2.5 mg INTRAMUSCULAR q 6 H PRN metoprolol tartrate (short acting) 25 mg tab(s) (LOPRESSOR) 25 mg ORAL q 12 H docusate sodium 100 mg cap(s) (COLACE) 100 mg ORAL BID polyethylene glycol 3350 17 g packet (MIRALAX, GLYCOLAX) 17 g ORAL DAILY traZODone 50 mg tab(s) (DESYREL) 50 mg ORAL AT BEDTIME divalproex sprinkle 375 mg cap(s) (DEPAKOTE SPRINKLES) 375 mg ORAL BID [START ON 06/18/2022] OLANZapine 5 mg tab(s) (ZyPREXA) 5 mg ORAL DAILY DATA: Diagnostic tests reviewed for today's visit: Most recent labs Assessment/Plan DIAGNOSIS: PRIMARY: Dementia Alzheimer's With Late Onset with behavioral disturbance. GAF: 55 -60-51 Moderate symptoms or moderate difficulty in social, occupational or school functioning. RISK ASSESSMENT: Suicide: low Homicide: low Deliberate Self-Harm: low Aggression: low Imminent Physical Self Impairment: high INFORMED CONSENT: Yes, completed with the Designated POA over Healthcare. Discussed the risks, benefits and alternatives to the medication(s) recommended. Consent was given. INTERVENTION: Biological: I will make her olanzapine daily instead of twice daily. Psychological: calmer but remains confused. Social: working on disposition. DISCHARGE PLANNING: Discharge by the end of the week. SIGNATURE: Trisha Mcgill MD PATIENT NAME: Chay PETERSON: June 17, 2022 TIME: 11:51 PM [facility] 06-17-2022 Note HNO ID: [id number] Author: Melisa Peña RN Service: Behavioral Health Author Type: Registered Nurse Type: Plan of Care Filed: 06/17/2022 10:53 AM Note Text: BEHAVIORAL HEALTH INPATIENT INTERDISCIPLINARY TREATMENT PLAN UPDATE DATE INITIATED: 06/17/2022 10:52 AM Patient's Goal of Treatment: unable to assess due to mental status Active Hospital Problems *Dementia with behavioral disturbance (HCC) Criteria for Discharge: Elimination/reduction of presenting behavior: agitation Estimated length of stay: 7-10 Interdisciplinary Treatment Plan Date Initiated: 06/06/22 Time Initiated: 501 Patient Participation in Initial Treatment Plan: No Patient unable to participate due to : Mental status Other Participants: N/A Strengths/Assets: Social support;Stable living situation Limitations: Cognitive impairment;Physically dependent on others Precautions indicated: Routine Precautions Individualized problems: Alteration in thoughts and perception;Cognitive impairment Problem - Discharge Needs Date Initiated: 06/06/22 Time Initiated: 503 Discharge Needs: Patient/Family will participate in the development of the Discharge Aftercare Plan;Assess for appropriate level of care Interventions - Nursing: Obtain baseline level of functioning on admission;Provide education to the patient and/or family about the disease process and management as appropriate daily and as needed;Provide non-judgmental supportive, empathetic and comprehensive trauma informed care daily and as needed;Use therapeutic communication skills to develop patient trust and a nurse-patient relationship daily and as needed;Assess for signs of escalating emotions and help identify ways to appropriately express feelings as needed;Assist with developing positive coping behaviors daily and as needed;Assess for escalating behavior and utilize de-escalation skills as needed;Encourage independence with daily functioning daily and as needed Interventions - Social Work: Assess for appropriate level of care and initiate referral upon admission or as needed;Complete PASSR as needed Interventions - Therapy: Promote medication compliance as needed Problem - Cognitive Impairment As evidenced by: Decline in activities of daily living;Disorientation;Poor impulse control;Wandering or pacing;Hallucinations;Delusions; Confusion Disorientation: place;time Date Intiated: 06/06/22 Time Initiated: 506 Short Term Goals: Patient will demonstrate decrease in anxiety;Patient will demonstrate decrease in agitation/aggression;Patient will comply with medication and treatment;Patient will demonstrate sleeping this number of hours per night;Patient will participate in toilet procedures every 2 hours;Patient will maintain adequate intake and output;Patient will not harm self;Patient will not harm others or destroy property;Patient will participate in activities of daily living as able Goal hours of sleep: 8 Target Date Short Term Goals: 06/17/22 Progress Towards Short Term Goals: Progressing Gallery Or Museum Attendant Goals: Patient will have improved insight into illness;Patient will have achieved optimal level of functioning;Patient will verbalize benefits of compliance with medication and treatment after discharge;Patient will participate in cognitive, physical and social activities Target Date Gallery Or Museum Attendant Goals: 06/19/22 Progress Towards Long-Term Goals: Progressing Interventions - Nursing: Offer frequent toileting as needed;Reorient the patient as needed;Obtain info regarding pre-existing stressors and calming methods/influences on admission;Administer medications as indicated and monitor patient for effect daily;Obtain baseline level of functioning on admission;Provide education to the patient and/or family about the disease process and management as appropriate daily and as needed;Provide non-judgmental supportive, empathetic and comprehensive trauma informed care daily and as needed;Use therapeutic communication skills to develop patient trust and a nurse-patient relationship daily and as needed;Assess for signs of escalating emotions and help identify ways to appropriately express feelings as needed;Assist with developing positive coping behaviors daily and as needed;Assess for escalating behavior and utilize de-escalation skills as needed;Encourage independence with daily functioning daily and as needed;Assist with activities of daily living, utilizing any necessary assistive devices daily and as needed;Monitor nutritional intake daily;Provide a quiet, restful environment to promote sleep/rest daily and as needed;Encourage patient participation in milieu activities daily and as needed Interventions - Social Work: Assist with identifying community/social supports daily or as needed;Create safety plan as needed Interventions - Therapy: Promote reality orientation;Promote engagement in sensory exploration as needed;Offer constructive (more content not included)... [facility] 06-15-2022 Note HNO ID: [id number] Author: Trisha Mcgill MD Service: Psychiatry Author Type: Physician Type: Progress Notes Filed: 06/16/2022 12:00 AM Note Text: PROGRESS NOTE BEHAVIORAL HEALTH SERVICE DATE: 06/15/2022 SERVICE TIME: 6198 The Interdisciplinary team met and reviewed treatment goals and discharge planning. Subjective This patient is very restless and quietly agitated. She keeps asking staff for help for no apparent reason, will express fear or tap on the table repeatedly. Objective PHYSICAL EXAM: BP 132/56 Pulse 91 Temp 36.2 ?C (97.2 ?F) (Oral) Resp 17 Ht 155 cm (5' 1.02) Wt 82.1 kg (181 lb) SpO2 97% BMI 34.17 kg/m? MENTAL STATUS EXAMINATION: Appearance: Appears stated age, Appropriate for age, and In hospital gown Behavior: Disorganized and Perseverative Orientation: Person Speech/Language: Soft , Rambling, and Underproductive Mood/Affect: Anxious, Distressed, Fearful, Expressing Loss of Pleasure, and Having Trouble Concentrating Thought Form: Egocentric, Loose Associations, Perseveration, and Tangential Thought Content: Delusions: Persecutory Suicidal Ideations: No suicidal ideation, intent or plan. Homicidal Ideations: No homicidal ideation, intent or plan. Insight: Insight is absent Judgment: Lacks social judgment, Lacks personal judgment, and Judgment grossly impaired Memory/Cognition: Moderately Impaired Psychomotor: Retarded NEW PROBLEMS ON UNIT SINCE LAST ENCOUNTER: None Current Facility-Administered Medications Medication Dose Route Frequency nicotine polacrilex 2 mg gum (NICORETTE) 2 mg ORAL q 2 H PRN amLODIPine 5 mg tab(s) (NORVASC) 5 mg ORAL DAILY ergocalciferol (vitamin D2) 50,000 Units cap(s) (DRISDOL) 50,000 Units ORAL 1/WK levothyroxine 25 mcg tab(s) (SYNTHROID) 25 mcg ORAL DAILY (6 AM) traZODone 50 mg tab(s) (DESYREL) 50 mg ORAL AT BEDTIME PRN rivaroxaban 20 mg tab(s) (XARELTO) 20 mg ORAL DAILY WITH BREAKFAST donepezil 5 mg tab(s) (ARICEPT) 5 mg ORAL DAILY LORazepam 0.5 mg tab(s) (ATIVAN) 0.5 mg ORAL q 6 H PRN Or midazolam (PF) 0.5 mg injection (VERSED) 0.5 mg INTRAMUSCULAR q 6 H PRN acetaminophen 650 mg tab(s) (TYLENOL) 650 mg ORAL q 6 H PRN aluminum-magnesium hydroxide-simethicone 200-200-20 mg/5 mL 30 mL (MAALOX,MYLANTA,MAG-AL PLUS) 30 mL ORAL q 4 H PRN magnesium hydroxide 400 mg/5 mL 15 mL (MOM) 15 mL ORAL DAILY PRN nicotine polacrilex 2 mg gum (NICORETTE) 2 mg ORAL q 1 H PRN fluPHENAZine 2.5 mg tab(s) (PROLIXIN) 2.5 mg ORAL q 6 H PRN Or fluPHENAZine hydrochloride 2.5 mg short-acting injection (PROLIXIN) 2.5 mg INTRAMUSCULAR q 6 H PRN metoprolol tartrate (short acting) 25 mg tab(s) (LOPRESSOR) 25 mg ORAL q 12 H docusate sodium 100 mg cap(s) (COLACE) 100 mg ORAL BID polyethylene glycol 3350 17 g packet (MIRALAX, GLYCOLAX) 17 g ORAL DAILY traZODone 50 mg tab(s) (DESYREL) 50 mg ORAL AT BEDTIME divalproex sprinkle 375 mg cap(s) (DEPAKOTE SPRINKLES) 375 mg ORAL BID OLANZapine 2.5 mg tab(s) (ZyPREXA) 2.5 mg ORAL BID 9a/5p DATA: Diagnostic tests reviewed for today's visit: Most recent labs Assessment/Plan DIAGNOSIS: PRIMARY: Dementia Alzheimer's With Late Onset with behavioral disturbance. GAF: 55 -60-51 Moderate symptoms or moderate difficulty in social, occupational or school functioning. RISK ASSESSMENT: Suicide: low Homicide: low Deliberate Self-Harm: low Aggression: low Imminent Physical Self Impairment: moderate INFORMED CONSENT: Yes, completed with the Designated POA over Healthcare. Discussed the risks, benefits and alternatives to the medication(s) recommended. Consent was given. INTERVENTION: Biological: I will increase her medications. Psychological: very disorganized. Social: working on disposition. DISCHARGE PLANNING: when stable. SIGNATURE: Trisha Mcgill MD PATIENT NAME: Chay Teague DATE: June 15, 2022 TIME: 11:54 PM [facility] 06-14-2022 Note HNO ID: [id number] Author: John Penny MD Service: Psychiatry Author Type: Physician Type: Progress Notes Filed: 06/14/2022 7:16 AM Note Text: INPATIENT PROGRESS NOTE PSYCHIATRY PATIENT: Chay Teague DATE OF SERVICE: June 14, 2022 The Interdisciplinary team met and reviewed treatment goals and discharge planning GERONIMO COMPLANT: Seen in room Confused No PRNs Improved sleep 1-HPI: Patient is compliant with medications No adverse reactions to medications Sleep is good 7 hrs Appetite is good Nursing staff updated notes is reviewed. She was very confused oriented to self only. She always say Am I good? She took her medications whole with pudding. [employer] most recent and updated notes is reviewed. Pt sleep remains poor, during the day she is visible on unit but confused. She frequently slaps table with open palm and calls out for help for no obvious reason. Pt continues to appear somewhat guarded and distrusting of everyone except on of her daughters. Daughter was able to complete enrollment for [facility] dual advantage, effective date 06/22/22. SW to update facility and determine particulars of admission policy regarding future coverage. Medical comorbidity is reviewed REVIEW OF SYSTEMS: Review Of The Other Psychiatry Symptoms Depression: no reported depression symptomes Tiffanie: no reported hypomanic or manic episodes. Psychosis:no reported auditory / visual hallucination or paranoid ideation. SANDY: no reported symptoms of SANDY OCD:no reported symptoms of OCD. PTSD:no reported PTSD symptoms Confusion: reported evidence of confusion Neurological:Denies Cranial nerve symptoms,motor symptoms,sensory symptoms,sphenctric symptoms. G I Symptoms:Denies Nausea,vomiting,constipation,rebeca rrhea. PAIN: Denies pain All Other Systems reviewed and Negative. 2-EXAMINATION: MENTAL STATUS EXAMINATION: Appearance: seen in day area Behavior: variable Orientation: Disoriented to Time and Situation Speech/Language: yes and no answers. Otherwise unproductive Mood/Affect: Flat Thought Form: Tangential Thought Content: Vague Suicidal Ideations: No suicidal ideation, intent or plan Homicidal Ideations: No homicidal ideation, intent or plan. Insight: Limited Judgment: Impaired Memory/Cognition: Moderately Impaired Psychomotor: Retarded CONSTITUTIONAL EXAMINATION: Psychomotor Activity: variable VITAL SIGNS BP (!) 124/43 Pulse 85 Temp 36.5 ?C (97.7 ?F) Resp 18 Ht 155 cm (5' 1.02) Wt 82.1 kg (181 lb) SpO2 97% BMI 34.17 kg/m? Current Facility-Administered Medications Medication Dose Route Frequency nicotine polacrilex 2 mg gum (NICORETTE) 2 mg ORAL q 2 H PRN amLODIPine 5 mg tab(s) (NORVASC) 5 mg ORAL DAILY ergocalciferol (vitamin D2) 50,000 Units cap(s) (DRISDOL) 50,000 Units ORAL 1/WK levothyroxine 25 mcg tab(s) (SYNTHROID) 25 mcg ORAL DAILY (6 AM) traZODone 50 mg tab(s) (DESYREL) 50 mg ORAL AT BEDTIME PRN rivaroxaban 20 mg tab(s) (XARELTO) 20 mg ORAL DAILY WITH BREAKFAST donepezil 5 mg tab(s) (ARICEPT) 5 mg ORAL DAILY LORazepam 0.5 mg tab(s) (ATIVAN) 0.5 mg ORAL q 6 H PRN Or midazolam (PF) 0.5 mg injection (VERSED) 0.5 mg INTRAMUSCULAR q 6 H PRN acetaminophen 650 mg tab(s) (TYLENOL) 650 mg ORAL q 6 H PRN aluminum-magnesium hydroxide-simethicone 200-200-20 mg/5 mL 30 mL (MAALOX,MYLANTA,MAG-AL PLUS) 30 mL ORAL q 4 H PRN magnesium hydroxide 400 mg/5 mL 15 mL (MOM) 15 mL ORAL DAILY PRN nicotine polacrilex 2 mg gum (NICORETTE) 2 mg ORAL q 1 H PRN fluPHENAZine 2.5 mg tab(s) (PROLIXIN) 2.5 mg ORAL q 6 H PRN Or fluPHENAZine hydrochloride 2.5 mg short-acting injection (PROLIXIN) 2.5 mg INTRAMUSCULAR q 6 H PRN metoprolol tartrate (short acting) 25 mg tab(s) (LOPRESSOR) 25 mg ORAL q 12 H docusate sodium 100 mg cap(s) (COLACE) 100 mg ORAL BID polyethylene glycol 3350 17 g packet (MIRALAX, GLYCOLAX) 17 g ORAL DAILY traZODone 50 mg tab(s) (DESYREL) 50 mg ORAL AT BEDTIME divalproex sprinkle 375 mg cap(s) (DEPAKOTE SPRINKLES) 375 mg ORAL BID 3-DECISION MAKING COMPLIXTY AND PLANING DIAGNOSIS: Hallucination and psychosis, not otherwise specified; frontal lobe dementia with behavioral disturbances; wandering behavior; confusion. RISK STATUS: ACUTE EXACERBATED PROBLEMS ON TOP OF CHRONIC ONES PATIENT CONDITION: UNSTABLE but improving NEW PROBLEMS tolerated increased Depakote and schedule Trazodone PROBLEM AREAS AND MANAGEMENT PLAN: Hallucination and psychosis, not otherwise specified-depakote frontal lobe dementia with behavioral disturbances-aricept wandering behavior-observation Confusion-time factor DATA REVIEWED Most Recent Lab is reviewed Most recent radiology is reviewed Most recent EKG is reviewed Current medications is reviewed Collateral Data is gathered from patient chart and treatment team I spent more than 30 minutes in contact with the patient more than %50 of which s (more content not included)... [facility] 06-13-2022 Note HNO ID: [id number] Author: John Penny MD Service: Psychiatry Author Type: Physician Type: Progress Notes Filed: 06/13/2022 7:15 AM Note Text: INPATIENT PROGRESS NOTE PSYCHIATRY PATIENT: Chay Teague DATE OF SERVICE: June 13, 2022 The Interdisciplinary team met and reviewed treatment goals and discharge planning CHEIF COMPLANT: Seen in room Hypomanic Irritable Still symptomatic requires total care Placement issues 1-HPI: Patient is compliant with medications No adverse reactions to medications Sleep is good 9 hrs Appetite is good Nursing staff updated notes is reviewed. Patient restless at times, yelling and hitting table and stated take me take me. Patient able to direct. , nonsensical speech. [employer] most recent and updated notes is reviewed. ASHLEY faxed clinicals to [facility]. director consumer affairs informed that they are not in network with [employer] and only have [facility]. ASHLEY called Pt's daughter to update and she states that she will apply for [employer] and that [facility] remain their first FOC. Medical comorbidity is reviewed REVIEW OF SYSTEMS: Review Of The Other Psychiatry Symptoms Depression: Denies being hopeless, helpless, unworthy, anhidonia. Tiffanie: Denies Elation,euphoria, racing thoights Psychosis: Denies Reported auditory hallucination,delusions Anxiety: Denies Stated felling anxious, apprehensive, panicky PTSD: Denies flash back, night alegria, intrusive meorires Confusion: No evidence of confusion Suicidal :Denies Suicidal Ideation Homicidal: Denies Homicidal Ideation Neurological:Denies Cranial nerve symptoms,motor symptoms,sensory symptoms,sphenctric symptoms. G I Symptoms:Denies Nausea,vomiting,constipation,rebeca rrhea. PAIN: Denies pain All Other Systems reviewed and Negative. 2-EXAMINATION: MENTAL STATUS EXAMINATION: Appearance: seen in day area Behavior: variable Orientation: Disoriented to Time and Situation Speech/Language: yes and no answers. Otherwise unproductive Mood/Affect: Flat Thought Form: Tangential Thought Content: Vague Suicidal Ideations: No suicidal ideation, intent or plan Homicidal Ideations: No homicidal ideation, intent or plan. Insight: Limited Judgment: Impaired Memory/Cognition: Moderately Impaired Psychomotor: Retarded CONSTITUTIONAL EXAMINATION: Psychomotor Activity: variable VITAL SIGNS BP 142/62 Pulse 92 Temp 36.7 ?C (98.1 ?F) (Oral) Resp 18 Ht 155 cm (5' 1.02) Wt 82.1 kg (181 lb) SpO2 96% BMI 34.17 kg/m? Current Facility-Administered Medications Medication Dose Route Frequency nicotine polacrilex 2 mg gum (NICORETTE) 2 mg ORAL q 2 H PRN amLODIPine 5 mg tab(s) (NORVASC) 5 mg ORAL DAILY ergocalciferol (vitamin D2) 50,000 Units cap(s) (DRISDOL) 50,000 Units ORAL 1/WK levothyroxine 25 mcg tab(s) (SYNTHROID) 25 mcg ORAL DAILY (6 AM) traZODone 50 mg tab(s) (DESYREL) 50 mg ORAL AT BEDTIME PRN rivaroxaban 20 mg tab(s) (XARELTO) 20 mg ORAL DAILY WITH BREAKFAST donepezil 5 mg tab(s) (ARICEPT) 5 mg ORAL DAILY LORazepam 0.5 mg tab(s) (ATIVAN) 0.5 mg ORAL q 6 H PRN Or midazolam (PF) 0.5 mg injection (VERSED) 0.5 mg INTRAMUSCULAR q 6 H PRN acetaminophen 650 mg tab(s) (TYLENOL) 650 mg ORAL q 6 H PRN aluminum-magnesium hydroxide-simethicone 200-200-20 mg/5 mL 30 mL (MAALOX,MYLANTA,MAG-AL PLUS) 30 mL ORAL q 4 H PRN magnesium hydroxide 400 mg/5 mL 15 mL (MOM) 15 mL ORAL DAILY PRN nicotine polacrilex 2 mg gum (NICORETTE) 2 mg ORAL q 1 H PRN fluPHENAZine 2.5 mg tab(s) (PROLIXIN) 2.5 mg ORAL q 6 H PRN Or fluPHENAZine hydrochloride 2.5 mg short-acting injection (PROLIXIN) 2.5 mg INTRAMUSCULAR q 6 H PRN metoprolol tartrate (short acting) 25 mg tab(s) (LOPRESSOR) 25 mg ORAL q 12 H docusate sodium 100 mg cap(s) (COLACE) 100 mg ORAL BID polyethylene glycol 3350 17 g packet (MIRALAX, GLYCOLAX) 17 g ORAL DAILY traZODone 50 mg tab(s) (DESYREL) 50 mg ORAL AT BEDTIME divalproex sprinkle 375 mg cap(s) (DEPAKOTE SPRINKLES) 375 mg ORAL BID 3-DECISION MAKING COMPLIXTY AND PLANING DIAGNOSIS: Hallucination and psychosis, not otherwise specified; frontal lobe dementia with behavioral disturbances; wandering behavior; confusion. RISK STATUS: ACUTE EXACERBATED PROBLEMS ON TOP OF CHRONIC ONES PATIENT CONDITION: UNSTABLE NEW PROBLEMS tolerated increased Depakote and schedule Trazodone PROBLEM AREAS AND MANAGEMENT PLAN: Hallucination and psychosis, not otherwise specified-depakote frontal lobe dementia with behavioral disturbances-aricept wandering behavior-observation Confusion-time factor DATA REVIEWED Most Recent Lab is reviewed Most recent radiology is reviewed Most recent EKG is reviewed Current medications is reviewed Collateral Data is gathered from patient chart and treatment team I spent more than 30 minutes in contact with the patient more than %50 of which spend in counseling (more content not included)... [facility] 06-12-2022 Note HNO ID: [id number] Author: Iva Bailey RN Service: Behavioral Health Author Type: Registered Nurse Type: Plan of Care Filed: 06/12/2022 2:42 PM Note Text: BEHAVIORAL HEALTH INPATIENT INTERDISCIPLINARY TREATMENT PLAN UPDATE DATE INITIATED: 06/12/2022 2:41 PM Patient's Goal of Treatment: unable to assess due to mental status Active Hospital Problems *Dementia with behavioral disturbance (HCC) Criteria for Discharge: Elimination/reduction of presenting behavior: Dementia with behavioral disturbance Estimated length of stay: over 7 days Interdisciplinary Treatment Plan Date Initiated: 06/06/22 Time Initiated: 0502 Patient Participation in Initial Treatment Plan: No Patient unable to participate due to : Mental status Other Participants: N/A Strengths/Assets: Social support;Stable living situation Limitations: Cognitive impairment;Physically dependent on others Precautions indicated: Routine Precautions Individualized problems: Alteration in thoughts and perception;Cognitive impairment Problem - Discharge Needs Date Initiated: 06/06/22 Time Initiated: 0504 Discharge Needs: Patient/Family will participate in the development of the Discharge Aftercare Plan;Assess for appropriate level of care Interventions - Nursing: Obtain baseline level of functioning on admission;Provide education to the patient and/or family about the disease process and management as appropriate daily and as needed;Provide non-judgmental supportive, empathetic and comprehensive trauma informed care daily and as needed;Use therapeutic communication skills to develop patient trust and a nurse-patient relationship daily and as needed;Assess for signs of escalating emotions and help identify ways to appropriately express feelings as needed;Assist with developing positive coping behaviors daily and as needed;Assess for escalating behavior and utilize de-escalation skills as needed;Encourage independence with daily functioning daily and as needed Interventions - Social Work: Assess for appropriate level of care and initiate referral upon admission or as needed;Complete PASSR as needed Interventions - Therapy: Promote medication compliance as needed Problem - Cognitive Impairment As evidenced by: Decline in activities of daily living;Disorientation;Poor impulse control;Wandering or pacing;Hallucinations;Delusions; Confusion Disorientation: place;time Date Intiated: 06/06/22 Time Initiated: 506 Short Term Goals: Patient will demonstrate decrease in anxiety;Patient will demonstrate decrease in agitation/aggression;Patient will comply with medication and treatment;Patient will demonstrate sleeping this number of hours per night;Patient will participate in toilet procedures every 2 hours;Patient will maintain adequate intake and output;Patient will not harm self;Patient will not harm others or destroy property;Patient will participate in activities of daily living as able Goal hours of sleep: 8 Target Date Short Term Goals: 06/17/22 Progress Towards Short Term Goals: Progressing Long-Term Goals: Patient will have improved insight into illness;Patient will have achieved optimal level of functioning;Patient will verbalize benefits of compliance with medication and treatment after discharge;Patient will participate in cognitive, physical and social activities Target Date Gallery [employer] Attendant Goals: 06/19/22 Progress Towards Long-Term Goals: Progressing Interventions - Nursing: Offer frequent toileting as needed;Reorient the patient as needed;Obtain info regarding pre-existing stressors and calming methods/influences on admission;Administer medications as indicated and monitor patient for effect daily;Obtain baseline level of functioning on admission;Provide education to the patient and/or family about the disease process and management as appropriate daily and as needed;Provide non-judgmental supportive, empathetic and comprehensive trauma informed care daily and as needed;Use therapeutic communication skills to develop patient trust and a nurse-patient relationship daily and as needed;Assess for signs of escalating emotions and help identify ways to appropriately express feelings as needed;Assist with developing positive coping behaviors daily and as needed;Assess for escalating behavior and utilize de-escalation skills as needed;Encourage independence with daily functioning daily and as needed;Assist with activities of daily living, utilizing any necessary assistive devices daily and as needed;Monitor nutritional intake daily;Provide a quiet, restful environment to promote sleep/rest daily and as needed;Encourage patient participation in milieu activities daily and as needed Interventions - Social Work: Assist with identifying community/social supports daily or as needed;Create safety plan as needed Interventions - Therapy: Promote reality orientation;Offer a routine schedule and encou (more content not included)... [facility] 06-12-2022 Note HNO ID: [id number] Author: John Penny MD Service: Psychiatry Author Type: Physician Type: Progress Notes Filed: 06/12/2022 7:36 AM Note Text: INPATIENT PROGRESS NOTE PSYCHIATRY PATIENT: Chay Teague DATE OF SERVICE: June 12, 2022 The Interdisciplinary team met and reviewed treatment goals and discharge planning CHEIF COMPLANT: Seen in day area insomnia 1-HPI: Patient is compliant with medications No adverse reactions to medications Sleep is poor 3 hrs Appetite is good Nursing staff updated notes is reviewed. 0700- Patient slept 3 hours throughout the night, incontinent of bladder and a medium sized BM. Ativan po given at 0658 for anxiety and restlessness with random yelling this morning while in day area. [employer] most recent and updated notes is reviewed. ASHLEY received return call from Estephania in admissions at [facility]. She states that Pt would be coming LTC and would need a PAS (ASHLEY submitted for one and received favorable determination). She provided fax: [phone] for clinical information and her work cell for updates: [phone]. ASHLEY to send updated information. Medical comorbidity is reviewed Latest Reference Range AND Units 06/11/22 07:23 Valproic Acid 50.0 - 100.0 ug/mL 49.5 (L) (L): Data is abnormally low REVIEW OF SYSTEMS: Review Of The Other Psychiatry Symptoms Depression: no reported depression symptomes Tiffanie: no reported hypomanic or manic episodes. Psychosis:no reported auditory / visual hallucination or paranoid ideation. SANDY: no reported symptoms of SANDY OCD:no reported symptoms of OCD. PTSD:no reported PTSD symptoms Confusion: reported evidence of confusion Neurological:Denies Cranial nerve symptoms,motor symptoms,sensory symptoms,sphenctric symptoms. G I Symptoms:Denies Nausea,vomiting,constipation,rebeca rrhea. PAIN: Denies pain All Other Systems reviewed and Negative. 2-EXAMINATION: MENTAL STATUS EXAMINATION: Appearance: seen in day area Behavior: variable Orientation: Disoriented to Time and Situation Speech/Language: yes and no answers. Otherwise unproductive Mood/Affect: Flat Thought Form: Tangential Thought Content: Vague Suicidal Ideations: No suicidal ideation, intent or plan Homicidal Ideations: No homicidal ideation, intent or plan. Insight: Limited Judgment: Impaired Memory/Cognition: Moderately Impaired Psychomotor: Retarded CONSTITUTIONAL EXAMINATION: Psychomotor Activity: variable VITAL SIGNS BP 154/65 Pulse 93 Temp 36.5 ?C (97.7 ?F) (Oral) Resp 18 Ht 155 cm (5' 1.02) Wt 82.1 kg (181 lb) SpO2 95% BMI 34.17 kg/m? Current Facility-Administered Medications Medication Dose Route Frequency nicotine polacrilex 2 mg gum (NICORETTE) 2 mg ORAL q 2 H PRN amLODIPine 5 mg tab(s) (NORVASC) 5 mg ORAL DAILY ergocalciferol (vitamin D2) 50,000 Units cap(s) (DRISDOL) 50,000 Units ORAL 1/WK levothyroxine 25 mcg tab(s) (SYNTHROID) 25 mcg ORAL DAILY (6 AM) traZODone 50 mg tab(s) (DESYREL) 50 mg ORAL AT BEDTIME PRN rivaroxaban 20 mg tab(s) (XARELTO) 20 mg ORAL DAILY WITH BREAKFAST donepezil 5 mg tab(s) (ARICEPT) 5 mg ORAL DAILY divalproex sprinkle 250 mg cap(s) (DEPAKOTE SPRINKLES) 250 mg ORAL BID LORazepam 0.5 mg tab(s) (ATIVAN) 0.5 mg ORAL q 6 H PRN Or midazolam (PF) 0.5 mg injection (VERSED) 0.5 mg INTRAMUSCULAR q 6 H PRN acetaminophen 650 mg tab(s) (TYLENOL) 650 mg ORAL q 6 H PRN aluminum-magnesium hydroxide-simethicone 200-200-20 mg/5 mL 30 mL (MAALOX,MYLANTA,MAG-AL PLUS) 30 mL ORAL q 4 H PRN magnesium hydroxide 400 mg/5 mL 15 mL (MOM) 15 mL ORAL DAILY PRN nicotine polacrilex 2 mg gum (NICORETTE) 2 mg ORAL q 1 H PRN fluPHENAZine 2.5 mg tab(s) (PROLIXIN) 2.5 mg ORAL q 6 H PRN Or fluPHENAZine hydrochloride 2.5 mg short-acting injection (PROLIXIN) 2.5 mg INTRAMUSCULAR q 6 H PRN metoprolol tartrate (short acting) 25 mg tab(s) (LOPRESSOR) 25 mg ORAL q 12 H docusate sodium 100 mg cap(s) (COLACE) 100 mg ORAL BID polyethylene glycol 3350 17 g packet (MIRALAX, GLYCOLAX) 17 g ORAL DAILY 3-DECISION MAKING COMPLIXTY AND PLANING DIAGNOSIS: Hallucination and psychosis, not otherwise specified; frontal lobe dementia with behavioral disturbances; wandering behavior; confusion. RISK STATUS: ACUTE EXACERBATED PROBLEMS ON TOP OF CHRONIC ONES PATIENT CONDITION: UNSTABLE NEW PROBLEMS:increase Depakote and schedule Trazodone PROBLEM AREAS AND MANAGEMENT PLAN: Hallucination and psychosis, not otherwise specified-depakote frontal lobe dementia with behavioral disturbances-aricept wandering behavior-observation Confusion-time factor DATA REVIEWED Most Recent Lab is reviewed Most recent radiology is reviewed Most recent EKG is reviewed Current medications is reviewed Collateral Data is gathered from patient chart and treatment team I spent more than 30 minutes in contact with the patient more than %50 of which spend in c (more content not included)... [facility] 06-11-2022 Note HNO ID: [id number] Author: John Penny MD Service: Psychiatry Author Type: Physician Type: Progress Notes Filed: 06/11/2022 7:08 AM Note Text: INPATIENT PROGRESS NOTE PSYCHIATRY PATIENT: Chay Teague DATE OF SERVICE: June 11, 2022 The Interdisciplinary team met and reviewed treatment goals and discharge planning CHEIF COMPLANT: Seen in day area Confused PMA 1-HPI: Patient is compliant with medications No adverse reactions to medications Sleep is good 5 hrs Appetite is good Nursing staff updated notes is reviewed. Pleasantly confused. Friendly with other patients and staff. Can be intrusive at times, observed patting other Patient's knee. Credit Advisor redirected Patient and educated on appropriate behavior. Patient cooperative with teaching. Med compliant whole in applesauce, but did spit out Colace gel capsule several times due to confusion. P [employer] most recent and updated notes is reviewed. ASHLEY placed call to [facility] admission department. ASHLEY informed admission director was on other line but was able to leave detailed message for her, requesting confirmation that they have ECF services (as opposed to assisted living or SNF) as well as to confirm a fax number to which to send clinical updates prior to discharge. Medical comorbidity is reviewed REVIEW OF SYSTEMS: Review Of The Other Psychiatry Symptoms Depression: no reported depression symptomes Tiffanie: no reported hypomanic or manic episodes. Psychosis:no reported auditory / visual hallucination or paranoid ideation. SANDY: no reported symptoms of SANDY OCD:no reported symptoms of OCD. PTSD:no reported PTSD symptoms Confusion: reported evidence of confusion Neurological:Denies Cranial nerve symptoms,motor symptoms,sensory symptoms,sphenctric symptoms. G I Symptoms:Denies Nausea,vomiting,constipation,rebeca rrhea. PAIN: Denies pain All Other Systems reviewed and Negative. 2-EXAMINATION: MENTAL STATUS EXAMINATION: Appearance: seen in day area Behavior: variable Orientation: Disoriented to Time and Situation Speech/Language: yes and no answers. Otherwise unproductive Mood/Affect: Flat Thought Form: Tangential Thought Content: Vague Suicidal Ideations: No suicidal ideation, intent or plan Homicidal Ideations: No homicidal ideation, intent or plan. Insight: Limited Judgment: Impaired Memory/Cognition: Moderately Impaired Psychomotor: Retarded CONSTITUTIONAL EXAMINATION: Psychomotor Activity: variable VITAL SIGNS BP 126/91 Pulse 91 Temp 36.4 ?C (97.5 ?F) (Oral) Resp 20 Ht 155 cm (5' 1.02) Wt 82.1 kg (181 lb) SpO2 95% BMI 34.17 kg/m? Current Facility-Administered Medications Medication Dose Route Frequency nicotine polacrilex 2 mg gum (NICORETTE) 2 mg ORAL q 2 H PRN amLODIPine 5 mg tab(s) (NORVASC) 5 mg ORAL DAILY ergocalciferol (vitamin D2) 50,000 Units cap(s) (DRISDOL) 50,000 Units ORAL 1/WK levothyroxine 25 mcg tab(s) (SYNTHROID) 25 mcg ORAL DAILY (6 AM) traZODone 50 mg tab(s) (DESYREL) 50 mg ORAL AT BEDTIME PRN rivaroxaban 20 mg tab(s) (XARELTO) 20 mg ORAL DAILY WITH BREAKFAST donepezil 5 mg tab(s) (ARICEPT) 5 mg ORAL DAILY divalproex sprinkle 250 mg cap(s) (DEPAKOTE SPRINKLES) 250 mg ORAL BID LORazepam 0.5 mg tab(s) (ATIVAN) 0.5 mg ORAL q 6 H PRN Or midazolam (PF) 0.5 mg injection (VERSED) 0.5 mg INTRAMUSCULAR q 6 H PRN acetaminophen 650 mg tab(s) (TYLENOL) 650 mg ORAL q 6 H PRN aluminum-magnesium hydroxide-simethicone 200-200-20 mg/5 mL 30 mL (MAALOX,MYLANTA,MAG-AL PLUS) 30 mL ORAL q 4 H PRN magnesium hydroxide 400 mg/5 mL 15 mL (MOM) 15 mL ORAL DAILY PRN nicotine polacrilex 2 mg gum (NICORETTE) 2 mg ORAL q 1 H PRN fluPHENAZine 2.5 mg tab(s) (PROLIXIN) 2.5 mg ORAL q 6 H PRN Or fluPHENAZine hydrochloride 2.5 mg short-acting injection (PROLIXIN) 2.5 mg INTRAMUSCULAR q 6 H PRN metoprolol tartrate (short acting) 25 mg tab(s) (LOPRESSOR) 25 mg ORAL q 12 H docusate sodium 100 mg cap(s) (COLACE) 100 mg ORAL BID polyethylene glycol 3350 17 g packet (MIRALAX, GLYCOLAX) 17 g ORAL DAILY 3-DECISION MAKING COMPLIXTY AND PLANING DIAGNOSIS: Hallucination and psychosis, not otherwise specified; frontal lobe dementia with behavioral disturbances; wandering behavior; confusion. RISK STATUS: ACUTE EXACERBATED PROBLEMS ON TOP OF CHRONIC ONES PATIENT CONDITION: UNSTABLE NEW PROBLEMS: pending valporic level PROBLEM AREAS AND MANAGEMENT PLAN: Hallucination and psychosis, not otherwise specified-depakote frontal lobe dementia with behavioral disturbances-aricept wandering behavior-observation Confusion-time factor DATA REVIEWED Most Recent Lab is reviewed Most recent radiology is reviewed Most recent EKG is reviewed Current medications is reviewed Collateral Data is gathered from patient chart and treatment team I spent more than 30 minutes in contact with the patient more than %50 of which s (more content not included)... [facility] 06-10-2022 Note HNO ID: [id number] Author: Melisa Peña RN Service: Behavioral Health Author Type: Registered Nurse Type: Plan of Care Filed: 06/10/2022 10:37 AM Note Text: BEHAVIORAL HEALTH INPATIENT INTERDISCIPLINARY TREATMENT PLAN UPDATE DATE INITIATED: 06/10/2022 10:36 AM Patient's Goal of Treatment: unable to assess due to mental status Active Hospital Problems *Dementia with behavioral disturbance (HCC) Criteria for Discharge: Elimination/reduction of presenting behavior: agitation Estimated length of stay: 7-10 Interdisciplinary Treatment Plan Date Initiated: 06/06/22 Time Initiated: 501 Patient Participation in Initial Treatment Plan: No Patient unable to participate due to : Mental status Other Participants: N/A Strengths/Assets: Social support;Stable living situation Limitations: Cognitive impairment;Physically dependent on others Precautions indicated: Routine Precautions Individualized problems: Alteration in thoughts and perception;Cognitive impairment Problem - Discharge Needs Date Initiated: 06/06/22 Time Initiated: 503 Discharge Needs: Patient/Family will participate in the development of the Discharge Aftercare Plan;Assess for appropriate level of care Interventions - Nursing: Obtain baseline level of functioning on admission;Administer medications as indicated and monitor patient for effect daily;Provide education to the patient and/or family about the disease process and management as appropriate daily and as needed;Provide non-judgmental supportive, empathetic and comprehensive trauma informed care daily and as needed;Use therapeutic communication skills to develop patient trust and a nurse-patient relationship daily and as needed;Encourage patient participation in milieu activities daily and as needed;Provide a quiet, restful environment to promote sleep/rest daily and as needed;Monitor nutritional intake daily;Assist with activities of daily living, utilizing any necessary assistive devices daily and as needed;Encourage independence with daily functioning daily and as needed Interventions - Social Work: Assess for appropriate level of care and initiate referral upon admission or as needed;Complete PASSR as needed Interventions - Therapy: Promote medication compliance as needed Problem - Cognitive Impairment As evidenced by: Decline in activities of daily living;Disorientation;Poor impulse control;Wandering or pacing;Hallucinations;Delusions; Confusion Disorientation: place;time Date Intiated: 06/06/22 Time Initiated: 0507 Short Term Goals: Patient will demonstrate decrease in anxiety;Patient will demonstrate decrease in agitation/aggression;Patient will comply with medication and treatment;Patient will demonstrate sleeping this number of hours per night;Patient will not harm self Goal hours of sleep: 8 Target Date Short Term Goals: 06/10/22 Progress Towards Short Term Goals: Progressing [employer] Goals: Patient will have improved insight into illness;Patient will have achieved optimal level of functioning;Patient will verbalize benefits of compliance with medication and treatment after discharge;Patient will participate in cognitive, physical and social activities;Patient will display nonviolent behavior towards others, with aid of medication and supportive therapy Target Date Long-Term Goals: 06/14/22 Progress Towards Gallery Or Museum Attendant Goals: Progressing Interventions - Nursing: Offer frequent toileting as needed;Obtain info regarding pre-existing stressors and calming methods/influences on admission;Reorient the patient as needed;Obtain baseline level of functioning on admission;Administer medications as indicated and monitor patient for effect daily;Provide education to the patient and/or family about the disease process and management as appropriate daily and as needed;Provide non-judgmental supportive, empathetic and comprehensive trauma informed care daily and as needed;Use therapeutic communication skills to develop patient trust and a nurse-patient relationship daily and as needed;Encourage patient participation in milieu activities daily and as needed;Provide a quiet, restful environment to promote sleep/rest daily and as needed;Monitor nutritional intake daily;Assist with activities of daily living, utilizing any necessary assistive devices daily and as needed Interventions - Social Work: Assist with identifying community/social supports daily or as needed;Create safety plan as needed Interventions - Therapy: Promote reality orientation;Offer a routine schedule and encourage milieu involvement daily and as needed;Encourage group attendance and participation daily and as needed;Educate on and promote grounding techniques and healthy distraction as needed Problem - Mood Disorder As evidenced by: Complusive Behaviors;Delusions;Hallucinatio ns;Impaired Judgement;Inability to care for self Date Initiated: 06/06/22 Time Initiat (more content not included)... [facility] 06-10-2022 Note HNO ID: [id number] Author: John Penny MD Service: Psychiatry Author Type: Physician Type: Progress Notes Filed: 06/10/2022 7:31 AM Note Text: INPATIENT PROGRESS NOTE PSYCHIATRY PATIENT: Chay Teague DATE OF SERVICE: June 10, 2022 The Interdisciplinary team met and reviewed treatment goals and discharge planning CHEIF COMPLANT: Seen in day area Euphoric singing with TV music disinhibited 1-HPI: Patient is compliant with medications No adverse reactions to medications Sleep is good 8 hrs Appetite is good Nursing staff updated notes is reviewed. Pt restless, very confused frequently redirected Ativan PO PRN given with good results. [employer] most recent and updated notes is reviewed. Medical comorbidity is reviewed REVIEW OF SYSTEMS: Review Of The Other Psychiatry Symptoms Depression: no reported depression symptomes Tiffanie: no reported hypomanic or manic episodes. Psychosis:no reported auditory / visual hallucination or paranoid ideation. SANDY: no reported symptoms of SANDY OCD:no reported symptoms of OCD. PTSD:no reported PTSD symptoms Confusion: reported evidence of confusion Neurological:Denies Cranial nerve symptoms,motor symptoms,sensory symptoms,sphenctric symptoms. G I Symptoms:Denies Nausea,vomiting,constipation,rebeca rrhea. PAIN: Denies pain All Other Systems reviewed and Negative. 2-EXAMINATION: MENTAL STATUS EXAMINATION: Appearance: dressed in hospital gown Behavior: variable Orientation: Disoriented to Time and Situation Speech/Language: yes and no answers. Otherwise unproductive Mood/Affect: Flat Thought Form: Tangential Thought Content: Vague Suicidal Ideations: No suicidal ideation, intent or plan Homicidal Ideations: No homicidal ideation, intent or plan. Insight: Limited Judgment: Impaired Memory/Cognition: Moderately Impaired Psychomotor: Retarded CONSTITUTIONAL EXAMINATION: Psychomotor Activity: variable VITAL SIGNS BP 136/72 Pulse 98 Temp 36.5 ?C (97.7 ?F) (Oral) Resp 16 Ht 155 cm (5' 1.02) Wt 82.1 kg (181 lb) SpO2 99% BMI 34.17 kg/m? Current Facility-Administered Medications Medication Dose Route Frequency nicotine polacrilex 2 mg gum (NICORETTE) 2 mg ORAL q 2 H PRN amLODIPine 5 mg tab(s) (NORVASC) 5 mg ORAL DAILY ergocalciferol (vitamin D2) 50,000 Units cap(s) (DRISDOL) 50,000 Units ORAL 1/WK levothyroxine 25 mcg tab(s) (SYNTHROID) 25 mcg ORAL DAILY (6 AM) traZODone 50 mg tab(s) (DESYREL) 50 mg ORAL AT BEDTIME PRN rivaroxaban 20 mg tab(s) (XARELTO) 20 mg ORAL DAILY WITH BREAKFAST donepezil 5 mg tab(s) (ARICEPT) 5 mg ORAL DAILY divalproex sprinkle 250 mg cap(s) (DEPAKOTE SPRINKLES) 250 mg ORAL BID LORazepam 0.5 mg tab(s) (ATIVAN) 0.5 mg ORAL q 6 H PRN Or midazolam (PF) 0.5 mg injection (VERSED) 0.5 mg INTRAMUSCULAR q 6 H PRN acetaminophen 650 mg tab(s) (TYLENOL) 650 mg ORAL q 6 H PRN aluminum-magnesium hydroxide-simethicone 200-200-20 mg/5 mL 30 mL (MAALOX,MYLANTA,MAG-AL PLUS) 30 mL ORAL q 4 H PRN magnesium hydroxide 400 mg/5 mL 15 mL (MOM) 15 mL ORAL DAILY PRN nicotine polacrilex 2 mg gum (NICORETTE) 2 mg ORAL q 1 H PRN fluPHENAZine 2.5 mg tab(s) (PROLIXIN) 2.5 mg ORAL q 6 H PRN Or fluPHENAZine hydrochloride 2.5 mg short-acting injection (PROLIXIN) 2.5 mg INTRAMUSCULAR q 6 H PRN metoprolol tartrate (short acting) 25 mg tab(s) (LOPRESSOR) 25 mg ORAL q 12 H docusate sodium 100 mg cap(s) (COLACE) 100 mg ORAL BID polyethylene glycol 3350 17 g packet (MIRALAX, GLYCOLAX) 17 g ORAL DAILY 3-DECISION MAKING COMPLIXTY AND PLANING DIAGNOSIS: Hallucination and psychosis, not otherwise specified; frontal lobe dementia with behavioral disturbances; wandering behavior; confusion. RISK STATUS: ACUTE EXACERBATED PROBLEMS ON TOP OF CHRONIC ONES PATIENT CONDITION: UNSTABLE NEW PROBLEMS: valporic level PROBLEM AREAS AND MANAGEMENT PLAN: Hallucination and psychosis, not otherwise specified-depakote frontal lobe dementia with behavioral disturbances-aricept wandering behavior-observation Confusion-time factor DATA REVIEWED Most Recent Lab is reviewed Most recent radiology is reviewed Most recent EKG is reviewed Current medications is reviewed Collateral Data is gathered from patient chart and treatment team I spent more than 30 minutes in contact with the patient more than %50 of which spend in counseling Signature: John Penny MD June 10, 2022 This is an electronically created document. IF PRINTED, PLEASE DO NOT REMOVE FROM THE CHART OR MODIFY PRINTED COPY. [facility] 06-09-2022 Note HNO ID: [id number] Author: Beba Bray MD Service: ? Author Type: Physician Type: Progress Notes Filed: 06/09/2022 1:10 PM Note Text: INPATIENT PROGRESS NOTES PATIENT NAME: Chay Teague SERVICE DATE: 06/09/2022 SERVICE TIME: 1:07 PM ASSESSMENT AND PLAN HTN-c/w Norvasc, and Lopressor -BP and HR are much better controlled Hypothyroidism-c/w Synthroid, TSH-4,220, c/w current dose Vit D deficiency-on supplement Constipation-c/w stool softener Dementia with behavioral disturbance (HCC) POA: Yes-c/w Aricept, f/w Dr. Penny SUBJECTIVE CHIEF COMPLAINT: sitting in the common area, sleepy, not in distress MEDICATIONS: Current Facility-Administered Medications Medication Dose Route Frequency nicotine polacrilex 2 mg gum (NICORETTE) 2 mg ORAL q 2 H PRN amLODIPine 5 mg tab(s) (NORVASC) 5 mg ORAL DAILY [START ON 06/10/2022] ergocalciferol (vitamin D2) 50,000 Units cap(s) (DRISDOL) 50,000 Units ORAL 1/WK levothyroxine 25 mcg tab(s) (SYNTHROID) 25 mcg ORAL DAILY (6 AM) traZODone 50 mg tab(s) (DESYREL) 50 mg ORAL AT BEDTIME PRN rivaroxaban 20 mg tab(s) (XARELTO) 20 mg ORAL DAILY WITH BREAKFAST donepezil 5 mg tab(s) (ARICEPT) 5 mg ORAL DAILY divalproex sprinkle 250 mg cap(s) (DEPAKOTE SPRINKLES) 250 mg ORAL BID LORazepam 0.5 mg tab(s) (ATIVAN) 0.5 mg ORAL q 6 H PRN Or midazolam (PF) 0.5 mg injection (VERSED) 0.5 mg INTRAMUSCULAR q 6 H PRN acetaminophen 650 mg tab(s) (TYLENOL) 650 mg ORAL q 6 H PRN aluminum-magnesium hydroxide-simethicone 200-200-20 mg/5 mL 30 mL (MAALOX,MYLANTA,MAG-AL PLUS) 30 mL ORAL q 4 H PRN magnesium hydroxide 400 mg/5 mL 15 mL (MOM) 15 mL ORAL DAILY PRN nicotine polacrilex 2 mg gum (NICORETTE) 2 mg ORAL q 1 H PRN fluPHENAZine 2.5 mg tab(s) (PROLIXIN) 2.5 mg ORAL q 6 H PRN Or fluPHENAZine hydrochloride 2.5 mg short-acting injection (PROLIXIN) 2.5 mg INTRAMUSCULAR q 6 H PRN metoprolol tartrate (short acting) 25 mg tab(s) (LOPRESSOR) 25 mg ORAL q 12 H docusate sodium 100 mg cap(s) (COLACE) 100 mg ORAL BID polyethylene glycol 3350 17 g packet (MIRALAX, GLYCOLAX) 17 g ORAL DAILY OBJECTIVE PHYSICAL EXAM: Patient Vitals for the past 24 hrs: BP Temp Pulse Resp SpO2 06/09/22 0727 131/68 36.6 ?C (97.9 ?F) 85 16 96 % 06/08/22 1934 141/71 -- 83 17 92 % Body mass index is 34.17 kg/m?. SKIN: Skin color, texture, turgor normal. No rashes or lesions. LUNGS: Lungs clear to auscultation, Good diaphragmatic excursion CARDIAC: Normal S1 and S2; no rubs, murmurs, or gallops ABDOMEN: Abdomen soft, non-tender, BS normal, No masses or organomegaly EXTREMITIES: Extremities normal, no deformities, edema, clubbing or skin discoloration. Good capillary refill., No ulcers NEURO: Reflexes normal and symmetric. Sensation grossly intact, Cranial nerves II-XII intact DATA: Diagnostic tests reviewed for today's visit: CMP: Glucose 91 06/05/2022 BUN 28 06/05/2022 Creatinine 0.84 06/05/2022 Sodium 143 06/05/2022 Potassium 3.8 06/05/2022 Chloride 107 06/05/2022 CO2 27 06/05/2022 Protein, Total 6.9 06/05/2022 Albumin 4.0 06/05/2022 Calcium, Total 9.5 06/05/2022 Alkaline Phosphatase 92 06/05/2022 Bilirubin, Total 0.5 06/05/2022 AST 22 06/05/2022 ALT 14 06/05/2022 Hemoglobin (g/dL) Date Value 06/05/2022 13.6 Hematocrit (%) Date Value 06/05/2022 41.2 WBC (k/uL) Date Value 06/05/2022 8.55 Platelet Count (k/uL) Date Value 06/05/2022 283 Plan of care discussed with: Provider, RN, Patient. SIGNATURE: Beba Bray MD DATE: June 09, 2022 TIME: 1:07 PM [facility] 06-09-2022 Note HNO ID: [id number] Author: John Penny MD Service: Psychiatry Author Type: Physician Type: Progress Notes Filed: 06/09/2022 7:17 AM Note Text: INPATIENT PROGRESS NOTE PSYCHIATRY PATIENT: Chay Teague DATE OF SERVICE: June 09, 2022 CHEIF COMPLANT: Seen in day area pleasant 1-HPI: Patient is compliant with medications No adverse reactions to medications Sleep is good 5 hrs Appetite is good Nursing staff updated notes is reviewed. -pleasantly confused [employer] most recent and updated notes is reviewed. Medical comorbidity is reviewed REVIEW OF SYSTEMS: Review Of The Other Psychiatry Symptoms Depression: Denies being hopeless, helpless, unworthy, anhidonia. Tiffanie: Denies Elation,euphoria, racing thoights Psychosis: Denies Reported auditory hallucination,delusions Anxiety: Denies Stated felling anxious, apprehensive, panicky PTSD: Denies flash back, night alegria, intrusive meorires Confusion: No evidence of confusion Suicidal :Denies Suicidal Ideation Homicidal: Denies Homicidal Ideation Neurological:Denies Cranial nerve symptoms,motor symptoms,sensory symptoms,sphenctric symptoms. G I Symptoms:Denies Nausea,vomiting,constipation,rebeca rrhea. PAIN: Denies pain All Other Systems reviewed and Negative. 2-EXAMINATION: MENTAL STATUS EXAMINATION: Appearance: dressed in hospital gown Behavior: variable Orientation: Disoriented to Time and Situation Speech/Language: yes and no answers. Otherwise unproductive Mood/Affect: Flat Thought Form: Tangential Thought Content: Vague Suicidal Ideations: No suicidal ideation, intent or plan Homicidal Ideations: No homicidal ideation, intent or plan. Insight: Limited Judgment: Impaired Memory/Cognition: Moderately Impaired Psychomotor: Retarded CONSTITUTIONAL EXAMINATION: Psychomotor Activity: variable VITAL SIGNS BP 141/71 Pulse 83 Temp 36.4 ?C (97.5 ?F) Resp 17 Ht 155 cm (5' 1.02) Wt 82.1 kg (181 lb) SpO2 92% BMI 34.17 kg/m? Current Facility-Administered Medications Medication Dose Route Frequency nicotine polacrilex 2 mg gum (NICORETTE) 2 mg ORAL q 2 H PRN amLODIPine 5 mg tab(s) (NORVASC) 5 mg ORAL DAILY [START ON 06/10/2022] ergocalciferol (vitamin D2) 50,000 Units cap(s) (DRISDOL) 50,000 Units ORAL 1/WK levothyroxine 25 mcg tab(s) (SYNTHROID) 25 mcg ORAL DAILY (6 AM) traZODone 50 mg tab(s) (DESYREL) 50 mg ORAL AT BEDTIME PRN rivaroxaban 20 mg tab(s) (XARELTO) 20 mg ORAL DAILY WITH BREAKFAST donepezil 5 mg tab(s) (ARICEPT) 5 mg ORAL DAILY divalproex sprinkle 250 mg cap(s) (DEPAKOTE SPRINKLES) 250 mg ORAL BID LORazepam 0.5 mg tab(s) (ATIVAN) 0.5 mg ORAL q 6 H PRN Or midazolam (PF) 0.5 mg injection (VERSED) 0.5 mg INTRAMUSCULAR q 6 H PRN acetaminophen 650 mg tab(s) (TYLENOL) 650 mg ORAL q 6 H PRN aluminum-magnesium hydroxide-simethicone 200-200-20 mg/5 mL 30 mL (MAALOX,MYLANTA,MAG-AL PLUS) 30 mL ORAL q 4 H PRN magnesium hydroxide 400 mg/5 mL 15 mL (MOM) 15 mL ORAL DAILY PRN nicotine polacrilex 2 mg gum (NICORETTE) 2 mg ORAL q 1 H PRN fluPHENAZine 2.5 mg tab(s) (PROLIXIN) 2.5 mg ORAL q 6 H PRN Or fluPHENAZine hydrochloride 2.5 mg short-acting injection (PROLIXIN) 2.5 mg INTRAMUSCULAR q 6 H PRN metoprolol tartrate (short acting) 25 mg tab(s) (LOPRESSOR) 25 mg ORAL q 12 H docusate sodium 100 mg cap(s) (COLACE) 100 mg ORAL BID polyethylene glycol 3350 17 g packet (MIRALAX, GLYCOLAX) 17 g ORAL DAILY 3-DECISION MAKING COMPLIXTY AND PLANING DIAGNOSIS: Hallucination and psychosis, not otherwise specified; frontal lobe dementia with behavioral disturbances; wandering behavior; confusion. RISK STATUS: ACUTE EXACERBATED PROBLEMS ON TOP OF CHRONIC ONES PATIENT CONDITION: UNSTABLE NEW PROBLEMS: still symptomatic PROBLEM AREAS AND MANAGEMENT PLAN: Hallucination and psychosis, not otherwise specified-depakote frontal lobe dementia with behavioral disturbances-aricept wandering behavior-observation Confusion-time factor DATA REVIEWED Most Recent Lab is reviewed Most recent radiology is reviewed Most recent EKG is reviewed Current medications is reviewed Collateral Data is gathered from patient chart and treatment team I spent more than 30 minutes in contact with the patient more than %50 of which spend in counseling Signature: John Penny MD June 09, 2022 This is an electronically created document. IF PRINTED, PLEASE DO NOT REMOVE FROM THE CHART OR MODIFY PRINTED COPY. [facility] 06-09-2022 Note HNO ID: [id number] Author: Interface Note Service: ? Author Type: ? Type: Progress Notes Filed: 06/09/2022 1:02 PM Note Text: Epic Scheduled Downtime: 06/09/2022 1:00:00 AM to 06/09/2022 2:07:00 AM [facility] 06-08-2022 Note HNO ID: [id number] Author: Beba Bray MD Service: ? Author Type: Physician Type: Progress Notes Filed: 06/08/2022 12:14 PM Note Text: INPATIENT PROGRESS NOTES PATIENT NAME: Chay Teague SERVICE DATE: 06/08/2022 SERVICE TIME: 12:08 PM ASSESSMENT AND PLAN HTN-c/w Norvasc, will add Lopressor for elevated HR Hypothyroidism-c/w Synthroid, TSH-4,220, c/w current dose Vit D deficiency-on supplement Constipation-will add stool softener Dementia with behavioral disturbance (HCC) POA: Yes-c/w Aricept, f/w Dr. Penny SUBJECTIVE CHIEF COMPLAINT: reported to be HTN and Tachycardic yesterday, also very constipated, requiring manual disimpaction MEDICATIONS: Current Facility-Administered Medications Medication Dose Route Frequency nicotine polacrilex 2 mg gum (NICORETTE) 2 mg ORAL q 2 H PRN amLODIPine 5 mg tab(s) (NORVASC) 5 mg ORAL DAILY [START ON 06/10/2022] ergocalciferol (vitamin D2) 50,000 Units cap(s) (DRISDOL) 50,000 Units ORAL 1/WK levothyroxine 25 mcg tab(s) (SYNTHROID) 25 mcg ORAL DAILY (6 AM) traZODone 50 mg tab(s) (DESYREL) 50 mg ORAL AT BEDTIME PRN rivaroxaban 20 mg tab(s) (XARELTO) 20 mg ORAL DAILY WITH BREAKFAST donepezil 5 mg tab(s) (ARICEPT) 5 mg ORAL DAILY divalproex sprinkle 250 mg cap(s) (DEPAKOTE SPRINKLES) 250 mg ORAL BID LORazepam 0.5 mg tab(s) (ATIVAN) 0.5 mg ORAL q 6 H PRN Or midazolam (PF) 0.5 mg injection (VERSED) 0.5 mg INTRAMUSCULAR q 6 H PRN acetaminophen 650 mg tab(s) (TYLENOL) 650 mg ORAL q 6 H PRN aluminum-magnesium hydroxide-simethicone 200-200-20 mg/5 mL 30 mL (MAALOX,MYLANTA,MAG-AL PLUS) 30 mL ORAL q 4 H PRN magnesium hydroxide 400 mg/5 mL 15 mL (MOM) 15 mL ORAL DAILY PRN nicotine polacrilex 2 mg gum (NICORETTE) 2 mg ORAL q 1 H PRN fluPHENAZine 2.5 mg tab(s) (PROLIXIN) 2.5 mg ORAL q 6 H PRN Or fluPHENAZine hydrochloride 2.5 mg short-acting injection (PROLIXIN) 2.5 mg INTRAMUSCULAR q 6 H PRN OBJECTIVE PHYSICAL EXAM: Patient Vitals for the past 24 hrs: BP Temp Temp src Pulse Resp SpO2 06/08/22 0714 143/78 36.4 ?C (97.5 ?F) -- 112 -- 96 % 06/08/22 0532 -- 36.4 ?C (97.5 ?F) -- -- -- -- 06/07/22 1923 140/78 37.1 ?C (98.8 ?F) Oral 111 16 95 % Body mass index is 34.17 kg/m?. SKIN: Skin color, texture, turgor normal. No rashes or lesions. LUNGS: Lungs clear to auscultation, Good diaphragmatic excursion CARDIAC: Normal S1 and S2; no rubs, murmurs, or gallops ABDOMEN: Abdomen soft, non-tender, BS normal, No masses or organomegaly EXTREMITIES: Extremities normal, no deformities, edema, clubbing or skin discoloration. Good capillary refill., No ulcers NEURO: Reflexes normal and symmetric. Sensation grossly intact, Cranial nerves II-XII intact DATA: Diagnostic tests reviewed for today's visit: CMP: Glucose 91 06/05/2022 BUN 28 06/05/2022 Creatinine 0.84 06/05/2022 Sodium 143 06/05/2022 Potassium 3.8 06/05/2022 Chloride 107 06/05/2022 CO2 27 06/05/2022 Protein, Total 6.9 06/05/2022 Albumin 4.0 06/05/2022 Calcium, Total 9.5 06/05/2022 Alkaline Phosphatase 92 06/05/2022 Bilirubin, Total 0.5 06/05/2022 AST 22 06/05/2022 ALT 14 06/05/2022 Hemoglobin (g/dL) Date Value 06/05/2022 13.6 Hematocrit (%) Date Value 06/05/2022 41.2 WBC (k/uL) Date Value 06/05/2022 8.55 Platelet Count (k/uL) Date Value 06/05/2022 283 Plan of care discussed with: Provider, RN, Patient. SIGNATURE: Beba Bray MD DATE: June 08, 2022 TIME: 12:08 PM [facility] 06-08-2022 Note HNO ID: [id number] Author: John Penny MD Service: Psychiatry Author Type: Physician Type: Progress Notes Filed: 06/08/2022 7:24 AM Note Text: INPATIENT PROGRESS NOTE PSYCHIATRY PATIENT: Chay Teague DATE OF SERVICE: June 08, 2022 CHEIF COMPLANT: Seen in day area confused 1-HPI: Patient is compliant with medications No adverse reactions to medications Sleep is good 8 hrs Appetite is good Nursing staff updated notes is reviewed. pleasantly confuse, cooperative with care, no episodes of agitation, nonsensical speech. Patient is compliant of her HS medications given crushed in applesauce [employer] most recent and updated notes is reviewed. Pt discussed in treatment team and observed on unit. Pt does appear more alert and organized than on previous day. She will remain inpatient through the weekend. SW to submit PAS on Friday (06/10/22) and follow units with [facility] with updated clinical information Medical comorbidity is reviewed REVIEW OF SYSTEMS: Review Of The Other Psychiatry Symptoms Depression: no reported depression symptomes Tiffanie: no reported hypomanic or manic episodes. Psychosis:no reported auditory / visual hallucination or paranoid ideation. SANDY: no reported symptoms of SANDY OCD:no reported symptoms of OCD. PTSD:no reported PTSD symptoms Confusion: reported evidence of confusion Neurological:Denies Cranial nerve symptoms,motor symptoms,sensory symptoms,sphenctric symptoms. G I Symptoms:Denies Nausea,vomiting,constipation,rebeca rrhea. PAIN: Denies pain All Other Systems reviewed and Negative. 2-EXAMINATION: MENTAL STATUS EXAMINATION: Appearance: dressed in hospital gown Behavior: variable Orientation: Disoriented to Time and Situation Speech/Language: yes and no answers. Otherwise unproductive Mood/Affect: Flat Thought Form: Tangential Thought Content: Vague Suicidal Ideations: No suicidal ideation, intent or plan Homicidal Ideations: No homicidal ideation, intent or plan. Insight: Limited Judgment: Impaired Memory/Cognition: Moderately Impaired Psychomotor: Retarded CONSTITUTIONAL EXAMINATION: Psychomotor Activity: variable VITAL SIGNS BP 140/78 Pulse 111 Temp 36.4 ?C (97.5 ?F) Resp 16 Ht 155 cm (5' 1.02) Wt 82.1 kg (181 lb) SpO2 95% BMI 34.17 kg/m? Current Facility-Administered Medications Medication Dose Route Frequency nicotine polacrilex 2 mg gum (NICORETTE) 2 mg ORAL q 2 H PRN amLODIPine 5 mg tab(s) (NORVASC) 5 mg ORAL DAILY [START ON 06/10/2022] ergocalciferol (vitamin D2) 50,000 Units cap(s) (DRISDOL) 50,000 Units ORAL 1/WK levothyroxine 25 mcg tab(s) (SYNTHROID) 25 mcg ORAL DAILY (6 AM) traZODone 50 mg tab(s) (DESYREL) 50 mg ORAL AT BEDTIME PRN rivaroxaban 20 mg tab(s) (XARELTO) 20 mg ORAL DAILY WITH BREAKFAST donepezil 5 mg tab(s) (ARICEPT) 5 mg ORAL DAILY divalproex sprinkle 250 mg cap(s) (DEPAKOTE SPRINKLES) 250 mg ORAL BID LORazepam 0.5 mg tab(s) (ATIVAN) 0.5 mg ORAL q 6 H PRN Or midazolam (PF) 0.5 mg injection (VERSED) 0.5 mg INTRAMUSCULAR q 6 H PRN acetaminophen 650 mg tab(s) (TYLENOL) 650 mg ORAL q 6 H PRN aluminum-magnesium hydroxide-simethicone 200-200-20 mg/5 mL 30 mL (MAALOX,MYLANTA,MAG-AL PLUS) 30 mL ORAL q 4 H PRN magnesium hydroxide 400 mg/5 mL 15 mL (MOM) 15 mL ORAL DAILY PRN nicotine polacrilex 2 mg gum (NICORETTE) 2 mg ORAL q 1 H PRN fluPHENAZine 2.5 mg tab(s) (PROLIXIN) 2.5 mg ORAL q 6 H PRN Or fluPHENAZine hydrochloride 2.5 mg short-acting injection (PROLIXIN) 2.5 mg INTRAMUSCULAR q 6 H PRN 3-DECISION MAKING COMPLIXTY AND PLANING DIAGNOSIS: Hallucination and psychosis, not otherwise specified; frontal lobe dementia with behavioral disturbances; wandering behavior; confusion. RISK STATUS: ACUTE EXACERBATED PROBLEMS ON TOP OF CHRONIC ONES PATIENT CONDITION: UNSTABLE NEW PROBLEMS: still symptomatic PROBLEM AREAS AND MANAGEMENT PLAN: Hallucination and psychosis, not otherwise specified-depakote frontal lobe dementia with behavioral disturbances-aricept wandering behavior-observation Confusion-time factor DATA REVIEWED Most Recent Lab is reviewed Most recent radiology is reviewed Most recent EKG is reviewed Current medications is reviewed Collateral Data is gathered from patient chart and treatment team I spent more than 30 minutes in contact with the patient more than %50 of which spend in counseling Signature: John Penny MD June 08, 2022 This is an electronically created document. IF PRINTED, PLEASE DO NOT REMOVE FROM THE CHART OR MODIFY PRINTED COPY. [facility] 06-08-2022 Note HNO ID: [id number] Author: Interface Note Service: ? Author Type: ? Type: Progress Notes Filed: 06/08/2022 3:51 AM Note Text: Epic Scheduled Downtime: 06/08/2022 1:00:00 AM to 06/08/2022 3:36:00 AM [facility] 06-07-2022 Note HNO ID: [id number] Author: Teo Lpóez RN Service: Behavioral Health Author Type: Registered Nurse Type: Plan of Care Filed: 06/07/2022 7:29 AM Note Text: BEHAVIORAL HEALTH INPATIENT INTERDISCIPLINARY TREATMENT PLAN UPDATE DATE INITIATED: 06/07/2022 7:28 AM Patient's Goal of Treatment: unable to assess due to mental status Active Hospital Problems *Dementia with behavioral disturbance (HCC) Criteria for Discharge: Elimination/reduction of presenting behavior: Dementia with behavioral disturbances Estimated length of stay: 5-7 days Interdisciplinary Treatment Plan Date Initiated: 06/06/22 Time Initiated: 501 Patient Participation in Initial Treatment Plan: No Patient unable to participate due to : Mental status Other Participants: N/A Strengths/Assets: Social support;Stable living situation Limitations: Cognitive impairment;Physically dependent on others Precautions indicated: Routine Precautions Individualized problems: Alteration in thoughts and perception;Cognitive impairment Problem - Discharge Needs Date Initiated: 06/06/22 Time Initiated: 503 Discharge Needs: Patient/Family will participate in the development of the Discharge Aftercare Plan;Assess for appropriate level of care Interventions - Nursing: Obtain baseline level of functioning on admission;Administer medications as indicated and monitor patient for effect daily;Provide education to the patient and/or family about the disease process and management as appropriate daily and as needed;Provide non-judgmental supportive, empathetic and comprehensive trauma informed care daily and as needed;Use therapeutic communication skills to develop patient trust and a nurse-patient relationship daily and as needed;Encourage patient participation in milieu activities daily and as needed;Provide a quiet, restful environment to promote sleep/rest daily and as needed;Monitor nutritional intake daily;Assist with activities of daily living, utilizing any necessary assistive devices daily and as needed;Encourage independence with daily functioning daily and as needed Interventions - Social Work: Assess for appropriate level of care and initiate referral upon admission or as needed;Complete PASSR as needed Interventions - Therapy: Promote medication compliance as needed Problem - Cognitive Impairment As evidenced by: Decline in activities of daily living;Disorientation;Poor impulse control;Wandering or pacing;Hallucinations;Delusions; Confusion Disorientation: place;time Date Intiated: 06/06/22 Time Initiated: 506 Short Term Goals: Patient will demonstrate decrease in anxiety;Patient will demonstrate decrease in agitation/aggression;Patient will comply with medication and treatment;Patient will demonstrate sleeping this number of hours per night;Patient will not harm self Goal hours of sleep: 8 Target Date Short Term Goals: 06/10/22 Progress Towards Short Term Goals: Progressing Gallery [employer] Attendant Goals: Patient will have improved insight into illness;Patient will have achieved optimal level of functioning;Patient will verbalize benefits of compliance with medication and treatment after discharge;Patient will participate in cognitive, physical and social activities;Patient will display nonviolent behavior towards others, with aid of medication and supportive therapy Target Date Gallery Or Museum Attendant Goals: 06/14/22 Progress Towards Gallery [employer] Attendant Goals: Progressing Interventions - Nursing: Offer frequent toileting as needed;Obtain info regarding pre-existing stressors and calming methods/influences on admission;Reorient the patient as needed;Obtain baseline level of functioning on admission;Administer medications as indicated and monitor patient for effect daily;Provide education to the patient and/or family about the disease process and management as appropriate daily and as needed;Provide non-judgmental supportive, empathetic and comprehensive trauma informed care daily and as needed;Use therapeutic communication skills to develop patient trust and a nurse-patient relationship daily and as needed;Encourage patient participation in milieu activities daily and as needed;Provide a quiet, restful environment to promote sleep/rest daily and as needed;Monitor nutritional intake daily;Assist with activities of daily living, utilizing any necessary assistive devices daily and as needed Interventions - Social Work: Assist with identifying community/social supports daily or as needed;Create safety plan as needed Interventions - Therapy: Promote reality orientation;Promote engagement in sensory exploration as needed;Offer constructive activities to channel impulses as needed;Offer a routine schedule and encourage milieu involvement daily and as needed;Encourage group attendance and participation daily and as needed;Educate on and promote grounding techniques and healthy distraction as needed Problem - Mood Disorder As (more content not included)... [facility] 06-07-2022 Note HNO ID: [id number] Author: John Penny MD Service: Psychiatry Author Type: Physician Type: Progress Notes Filed: 06/07/2022 7:19 AM Note Text: INPATIENT PROGRESS NOTE PSYCHIATRY PATIENT: Chay Teague DATE OF SERVICE: June 07, 2022 The Interdisciplinary team met and reviewed treatment goals and discharge planning CHEIF COMPLANT: Seen in day area Said she feels okay Disoriented Pleasant during the interview 1-HPI: Patient is compliant with medications No adverse reactions to medications Sleep is good 8 hrs Appetite is good Nursing staff updated notes is reviewed. Pt appears restless and confused. She is only able to state her name. She is unable to answer majority of nursing assessment questions. She does not understand she is in the hospital and states, I gotta get out of here. Took all medications crushed in applesauce and tolerated flu vaccine. Coarse tremors noted. 2 assist needed for incontinence care. Will continue to monitor. 1730- Pt continues to be confused throughout the shift. 2 assist needed for incontinence care throughout the day. Very weak with tremors, thus has difficulty standing and unable to walk. States, I don't know, multiple times throughout the day. D/C focused. RN attempted to assist pt eating. Poor appetite- refused to eat all meals. [employer] most recent and updated notes is reviewed. Daughter states that Pt has not responded well to Haldol in the past. She states that Pt was on waitlist for [facility] but following this episode they are willing to take her once stabilized. Daughter is agreeable to SW reaching out and sharing clinical information with [facility] as needed. SW to follow with continued collateral contact and discharge planning as Pt's mental status improves. SW to submit PAS and send [facility] clinical updates once Pt is stabilized. Medical comorbidity is reviewed REVIEW OF SYSTEMS: Review Of The Other Psychiatry Symptoms Depression: no reported depression symptomes Tiffanie: no reported hypomanic or manic episodes. Psychosis:no reported auditory / visual hallucination or paranoid ideation. SANDY: no reported symptoms of SANDY OCD:no reported symptoms of OCD. PTSD:no reported PTSD symptoms Confusion: reported evidence of confusion Neurological:Denies Cranial nerve symptoms,motor symptoms,sensory symptoms,sphenctric symptoms. G I Symptoms:Denies Nausea,vomiting,constipation,rebeca rrhea. PAIN: Denies pain All Other Systems reviewed and Negative. 2-EXAMINATION: MENTAL STATUS EXAMINATION: Appearance: dressed in hospital gown Behavior: variable Orientation: Disoriented to Time and Situation Speech/Language: yes and no answers. Otherwise unproductive Mood/Affect: Flat Thought Form: Tangential Thought Content: Vague Suicidal Ideations: No suicidal ideation, intent or plan Homicidal Ideations: No homicidal ideation, intent or plan. Insight: Limited Judgment: Impaired Memory/Cognition: Moderately Impaired Psychomotor: Retarded CONSTITUTIONAL EXAMINATION: Psychomotor Activity: variable VITAL SIGNS BP 154/82 Pulse 111 Temp 36.8 ?C (98.2 ?F) (Oral) Resp 18 Ht 155 cm (5' 1.02) Wt 82.1 kg (181 lb) SpO2 94% BMI 34.17 kg/m? Current Facility-Administered Medications Medication Dose Route Frequency nicotine polacrilex 2 mg gum (NICORETTE) 2 mg ORAL q 2 H PRN amLODIPine 5 mg tab(s) (NORVASC) 5 mg ORAL DAILY [START ON 06/10/2022] ergocalciferol (vitamin D2) 50,000 Units cap(s) (DRISDOL) 50,000 Units ORAL 1/WK levothyroxine 25 mcg tab(s) (SYNTHROID) 25 mcg ORAL DAILY (6 AM) traZODone 50 mg tab(s) (DESYREL) 50 mg ORAL AT BEDTIME PRN rivaroxaban 20 mg tab(s) (XARELTO) 20 mg ORAL DAILY WITH BREAKFAST donepezil 5 mg tab(s) (ARICEPT) 5 mg ORAL DAILY divalproex sprinkle 250 mg cap(s) (DEPAKOTE SPRINKLES) 250 mg ORAL BID haloperidol 2 mg tab(s) (HALDOL) 2 mg ORAL q 6 H PRN Or haloperidol lactate 2 mg short-acting injection (HALDOL) 2 mg INTRAMUSCULAR q 6 H PRN LORazepam 0.5 mg tab(s) (ATIVAN) 0.5 mg ORAL q 6 H PRN Or midazolam (PF) 0.5 mg injection (VERSED) 0.5 mg INTRAMUSCULAR q 6 H PRN acetaminophen 650 mg tab(s) (TYLENOL) 650 mg ORAL q 6 H PRN aluminum-magnesium hydroxide-simethicone 200-200-20 mg/5 mL 30 mL (MAALOX,MYLANTA,MAG-AL PLUS) 30 mL ORAL q 4 H PRN magnesium hydroxide 400 mg/5 mL 15 mL (MOM) 15 mL ORAL DAILY PRN nicotine polacrilex 2 mg gum (NICORETTE) 2 mg ORAL q 1 H PRN 3-DECISION MAKING COMPLIXTY AND PLANING DIAGNOSIS: Hallucination and psychosis, not otherwise specified; frontal lobe dementia with behavioral disturbances; wandering behavior; confusion. RISK STATUS: ACUTE EXACERBATED PROBLEMS ON TOP OF CHRONIC ONES PATIENT CONDITION: UNSTABLE NEW PROBLEMS: still symptomatic PROBLEM AREAS AND MANAGEMENT PLAN: Hallucination and psychosis, not otherwise specified-depakote frontal lobe dementi (more content not included)... [facility] 06-06-2022 Note HNO ID: [id number] Author: John Penny MD Service: Psychiatry Author Type: Physician Type: Progress Notes Filed: 06/06/2022 7:00 AM Note Text: HANDP dictated # [id number] JOHN PENNY MD 06/06/2022 [facility] 06-05-2022 Miscellaneous Notes BEHAVIORAL HEALTH INTAKE NOTE SERVICE DATE: 06/06/2022 SERVICE TIME: 12:08AM Nature of the crisis: Confusion Presenting Problem: Chay Teague is a 77 year old female brought in to [facility] from Home by family for confusion. Pt with prior medical history of dementia with behavioral disturbance, hypertension, hypothyroidism, anxiety, depression, asthma. Pt is reported to have a UTI, at present, which she is being treated with an antibiotic for in the ED. Pt's daughter brought pt to the ED after she was contacted by local police about pt wandering the streets alone. Pt was noted, by daughter, to have visual hallucinations of a red car and a cat, becoming upset with her daughter when the daughter did not steal the car back for her. Credit Advisor attempted interview with pt telephonically. It was noted by ED RN Liz that pt did not have her dentures in nor her hearing aide in to assist. Pt is noted to be panting and moaning, making sounds but not forming full words. Pt was not able to participate in conversation and and was not responsive to yes or no questions. ED RN reported, upon arrival, that pt was also not participating in conversation and not answering yes or no questions either, but was saying repeatedly, I don't know, I don't know. Pt is not linked with a psychiatrist. Pt does not have any hx/o psychiatric admissions. There are no reported concerns for SI/HI/SIB. Collateral information obtained from pt's daughter, Jennifer Hidalgo ([phone]). Daughter reports that pt has underlying dementia, but has been residing at home alone with paid supports during the daytime and family managing medications at night. Per daughter the police called her, earlier today, notifying that pt was wandering. Daughter notes that when she went to pick pt up she was dressed inappropriately with clothing that was too small and a sweater that was too heavy for the temperature. Daughter reports that for the past 2 days pt has been hallucinating, as stated above, in additional to talking about a lot of people who a long time ago. Daughter believes that pt is no longer safe at home and has begun looking for memory care placement, with pt being on the waitlist at [facility]. PAST MEDICAL HISTORY: PAST MEDICAL HISTORY Diagnosis Date Psychiatric disorder SOCIAL HISTORY: Social History Tobacco Use Smoking status: Unknown MEDICATIONS: amLODIPine (NORVASC) 5 mg tablet^Take 5 mg by mouth once daily.^Disp: ^Rfl: ergocalciferol 50,000 unit capsule (VITAMIN D2, DRISDOL)^Take 50,000 Units by mouth one time a week.^Disp: ^Rfl: levothyroxine (SYNTHROID) 25 mcg tablet^Take 25 mcg by mouth once daily.^Disp: ^Rfl: XARELTO 20 mg tablet^Take 20 mg by mouth daily with breakfast.^Disp: ^Rfl: traZODone (DESYREL) 50 mg tablet^Take 50 mg by mouth once daily as needed.^Disp: ^Rfl: venlafaxine ER (EFFEXOR XR) 150 mg 24 hr capsule^Take 150 mg by mouth once daily.^Disp: ^Rfl: No medication comments found. MEDICATION COMPLIANCE: Yes ALLERGIES No Known Allergies PAST SURGICAL HISTORY: No past surgical history on file. SOCIOECONOMIC HISTORY: Employer And Job Title: None on file Years Of Education Completed: Not specified Marital Status: Single SOCIAL INFORMATION: Living Arrangements: Home Provider Stated Diagnosis: Dementia with behavioral disturbance (F03.91) Satisfaction With Relationships: Unable to assess Does Patient Have Minor Children for Whom He/She is Responsible?: No Education Level: (Unable to assess) Employment Status: (Unable to assess.) Is the Patient a : (Unable to assess.) Stressors: (Unable to assess.) Legal History: No Legal History Legal Details: None to report How Legal Issues Were Verified: [facility] General Handling Supervisor of Courts Website;[employer] [employer] Sex Offender Website;[facility]'s Sexual Offender Website Gender Specific Test: Not Applicable Sex at Time of : Female Patient Identified Gender: (Unable to assess.) Preferred Pronoun: (Unable to assess.) Sexual Orientation: (Unable to assess.) Cultural/Muslim Concerns Cultural Issues or Concerns That Might Affect Treatment: Unable to assess. Muslim/Spiritual Issues or Concerns That Might Affect Treatment: Unable to assess. FAMILY HISTORY: No family history on file. OBSERVATIONS Level of Consciousness Alert: Yes Physical Appearance Appears: Appropriate (Per ED LENIN Hill) Speech Rate: (Pt was not speaking during the interview due to her symptomatology.) Volume: (Pt was not speaking during the interview due to her symptomatology.) Quality: (Pt was not speaking during the interview due to her symptomatology.) Quantity: Poverty of Speech Thought Processes Thought: (Unable to assess. Pt unable to participate in interview due to pt symptomatology.) Thought Content Delusions: (Unable to assess. Pt unable to participate in interview due to pt symptomatology.) Hallucinations: Other: See Comment;Visual (Per pt's daughter, pt w/ [facility] for past 2 days of a red car and cat outside; daughter reports that pt was mad at her today, for not going to steal the car back for her.) Illusions: (Unable to assess. Pt unable to participate in interview due to pt symptomatology.) Phobias: Unable to assess. Pt unable to participate in interview due to pt symptomatology. Preoccupations: Other: See Comment (Per daughter, pt continues to ask about people who have a long time ago (i.e. pt's mother and father)) Memory: Other: See Comment (Unable to assess. Pt unable to participate in interview due to pt symptomatology.) Mood & Affect Patient Described Mood: Unable to assess. Pt unable to participate in interview due to pt symptomatology. Other Environmental Compliance Inspector Described Mood: Pt is calm and cooperative, but not interviewable Environmental Compliance Inspector: ED LENIN Hill Observed/Reported: Other: See Comment (Unable to assess.) Range of Affect: (Unable to assess.) Sleep: (Unable to assess.) Appetite: (Unable to assess.) Energy: (Unable to assess.) Anxiety/Trauma: (Unable to assess.) Non-Suicidal Self Injury Non-Suicidal Self Injury: (Unable to assess.) Suicidal Ideation Suicidal Ideation: (Pt's daughter denies hearing pt make mention of any SI. Credit Advisor is unable to assess with pt directly.) Homicidal Ideation Homicidal Ideation: (Pt's daughter denies hearing pt make mention of any SI. Credit Advisor is unable to assess with pt directly.) Non-Lethal Harm to Others or Damage/Destruction to Property Harm to Others or Damage/Destruction of Property: (Pt's daughter denies hearing pt make mention of any SI. Credit Advisor is unable to assess with pt directly.) Access To Weapons Access To Weapons: No (Pt's daughter confirmed that there are no weapons in the home.) History of Impulsive Behaviors History: N/A Medical Conditions Medical Conditions Increasing Risks: Cognitive Impairment (Pt has dx/o dementia) CHEMICAL DEPENDENCY Substance Use: No Referral for Substance Abuse Services: No Toxicology Screen Results: Negative ACTIVITY Activities of Daily Living: Assist (Pt has paid support during the day with ADLs, per pt's daughter) Mobility: Other: See Comment (Pt walks with a rolator.) Person Providing Information: ED RN Liz and pt's daughter Continence: Continent Other Medical Need/Equipment: (None) Other Considerations: Other: See Comment (Pt has hearing aids and wears dentures) MENTAL HEALTH SERVICES: Current Mental Health Providers: None Agency/Organization: None Phone Number: N/A Inpatient Mental Health Treatment History: None Outpatient Mental Health Treatment History: None INTERVENTIONS Sources of Information: Patient;Epic;ED Staff;Family Patient Assessed by Intake via: Telephone Coordination of care with: ED RN;ED LIP;Family Interventions: Therapeutic Interventions Therapeutic Interventions: Family Consultation;Crisis Assessment Family Consult: with patient Goals/Objectives: Admission to inpatient psychiatric unit for safety of patient and others DISPOSITION & PLAN: Patient Assessed by Intake via: Telephone Patient stated goals: Goals: To be stabilized on my medications (Per pt's daughter (who is POA)) Coordination of Care with: ED RN;ED LIP;Family Assessment/Impressions: Inpatient Need Plan: Secure an inpatient bed Goals/Objectives: Admission to inpatient psychiatric unit for safety of patient and others Total time spent (minutes) in Supportive Care for this patient: 30 MEDICAL CLEARANCE Initial Date: 06/05/22 Initial Time: 2127 Reviewed medical history with physician: Yes Reviewed abnormal labs with physician: Yes Discussed case with Dr. John Penny who states that Chay Teague is a candidate for admission. Provider Stated Diagnosis: Dementia with behavioral disturbance (F03.91) Admitting Provider: Dr. John Penny Admission Status: Full Admit Unit: [facility] ([facility]) Bed#: 692-2 Report Given To: Vitaliy Report Date: 06/06/22 Report Time: 223 Admission Type: Medical Certificate SIGNATURE: JACINTO Castro PATIENT NAME: Chay Teague DATE: June 05, 2022 TIME: 11:39 PM documented in this encounter [facility] 11-10-2021 Note Hospitalist Discharg e Summary Chay Teague : 1945 Admit date: 11/02/2021 Discharge date: 11/10/2021 Admitting Physician: Luis Stern MD Primary Care Physician: Cynthia Uribe MD Visit Status: Admission Code Status: DNR-CCA Discharge Diagnoses: 1. Left lower extremity swelling secondary to iliofemoral DVT--> patient presented to the ER with complaints of left lower extremity pain and swelling that started the day prior. No history of DVT, PE or cancer. Duplex of the lower extremity consistent with acute DVT in the left external iliac vein, left common femoral vein, left femoral vein, left saphenofemoral junction, left great saphenous vein, left deep femoral vein, left popliteal vein, left peroneal vein, left posterior tibial vein, left gastric venous veins, left soleal vein. CTA chest negative for PE. Vascular surgery consulted and after discussion with the patient and the daughter, it was agreed upon that they would prefer anticoagulation over mechanical thrombectomy. Patient was started on a heparin drip and admitted to the floor. Changed to Eliquis. Vascular surgery reevaluated the patient and recommended to keep elevated and keep wrapped with an Pieter wrap compression. Medically cleared for discharge from their standpoint 2. Acute encephalopathy likely secondary to underlying dementia worsened in the setting of acute illness--> baseline is patient AO x1 and waxes and wanes per the daughter. Lives at home with a caregiver and not independent of her ADLs. Obtained a CT head due to worsening confusion given the fact that she was on anticoagulation. CT head showed no acute intracranial bleed. Currently on delirium protocol 3. Hypokalemia-magnesium within normal limits, resolved 4. CKD Stage 2 (GFR 60-89) 5. Leukocytosis-resolved 6. Hypertension 7. Depression 8. Osteoarthritis of the knee 9. Urge incontinence 10. Obesity-BMI of 34.54 Diagnosis Date ? Anxiety ? Asthma ? Dementia (HCC) ? Depression ? History of blood transfusion ? Hypertension ? Hypothyroidism Procedures: None Hospital Course: See discharge diagnoses list above and medication adjustments below in med rec.The patient is discharged in improved and stable condition. Consults: IP CONSULT TO SOCIAL WORK IP CONSULT TO ONCOLOGY Discharge Instructions: Diet: ADULT DIET; Regular Activity: as tolerated Recommended Outpatient Tests: Disposition: Patient discharged in stable condition to SNF. Greater than 30 minutes spent discharging the patient and coming up with patient discharge plan. Vitals: BP 116/75 Pulse 94 Temp 96 ?F (35.6 ?C) (Axillary) Resp 22 Wt 190 lb 11.2 oz (86.5 kg) SpO2 97% BMI 33.78 kg/m? Pulse Ox: SpO2 Av.5 % Min: 87 % Max: 97 % Supplemental O2: O2 Flow Rate (L/min): 5 L/min General appearance: No apparent distress, appears stated age and cooperative with exam HEENT: Normal cephalic, atraumatic without obvious deformity. Pupils equal, round, and reactive to light. Extra ocular muscles intact. Conjunctivae/corneas clear. Neck: Supple, with full range of motion. No jugular venous distention. Trachea midline. No lymphadenopathy. Respiratory: Normal respiratory effort. Clear to auscultation, bilaterally without Rales/Wheezes/Rhonchi. Cardiovascular: Regular rate and rhythm with normal S1/S2 without murmurs, rubs or gallops. Abdomen: Soft, non-tender, non-distended with normal bowel sounds. No rebound or guarding. Musculoskeletal: No clubbing, cyanosis or edema bilaterally. Full range of motion without deformity. Skin: Skin color, texture, turgor normal. No rashes or lesions. Neurologic: Neurovascularly intact without any focal sensory/motor deficits. Cranial nerves: II-XII intact, grossly non-focal. Discharge Medications: Medication List START taking these medications * apixaban 5 MG Tabs tablet Commonly known as: ELIQUIS Take 2 tablets by mouth 2 times daily for 9 doses * apixaban 5 MG Tabs tablet Commonly known as: ELIQUIS Take 1 tablet by mouth 2 times daily Start taking on: November 12, 2021 melatonin 3 MG Tabs tablet Take 1 tablet by mouth nightly * This list has 2 medication(s) that are the same as other medications prescribed for you. Read the directions carefully, and ask your doctor or other care provider to review them with you. CHANGE how you take these medications D3 Super Strength 50 MCG (1999 UT) Caps Generic drug: Cholecalciferol TAKE ONE (1) CAPSULE BY MOUTH DAILY What changed: Another medication with the same name was removed. Continue taking this medication, and follow the directions you see here. * ProAir HFA 108 (90 Base) MCG/ACT inhaler Generic drug: albuterol sulfate HFA INHALE TWO (2) PUFFS INTO THE LUNGS EVERY 6 HOURS NEEDED FOR WHEEZING OR SHORTNESS OF BREATH What changed: Another medication with the same name was removed. Continue taking this medication, and follow the di (more content not included)... [facility] 08-28-2021 History of Presen t illness Narrative Patient is a 76-year-old female who presents with left knee pain. She fell approximately 2 days ago. She likely landed on that knee as there is a small abrasion. Pain is worse today than it was yesterday. There is no swelling. Patient has pain with standing and seems to be more off balance than her normal. [facility] Phone: Evaluation note Diagnosis Vitamin D deficiency Unspecified vitamin D deficiency Recurrent depression (HCC) Major depressive disorder, recurrent episode, unspecified Essential hypertension Unspecified essential hypertension Other specified hypothyroidism Mild intermittent asthma without complication Unspecified asthma documented in this encounter [facility] [employer] Phone: Evaluation note* Diagnosis Vitamin D deficiency Unspecified vitamin D deficiency Other specified hypothyroidism documented in this encounter [facility] [employer] Phone: Evaluation note* Diagnosis Dementia, senile with delusions, with behavioral disturbance (HCC)- Primary [facility] information available[facility] Phone: Reason for referral (narrative)No reason for referral information availableWSumma [facility] Work Phone: Summary Purpose Family History No Family History Records FoundNo Family History Records FoundNo Family History Records FoundNo Family History Records FoundNo Family History Records FoundNo Family History Records FoundNo Family History Records FoundNo Family History Records FoundNo Family History Records FoundNo Family History Records Found Advance Directives No Advanced Directives Records FoundDocuments on File Type Date Recorded Patient Hearing Aid Specialist Expl anation Advance Directives and Living Will Advance Directives and Living Will 03/14/2017 10:57 AM Power of Store Standards Associate 11/09/2018 4:07 PM POA - Jennifer Gwen Latest Code Status on File Code Status Date Activated Date Inactivated Comments DNR-CCA 03/06/2020 5:15 PM DNR-CCA 03/06/2017 8:30 PM 03/09/2017 4:35 PM Documents on File Type Date Recorded Patient Hearing Aid Specialist Expl anation ACP-Advance Directive ACP-Advance Directive 03/14/2017 10:57 AM ACP-Power of Store Standards Associate 11/09/2018 4:07 PM P OA - Jennifer Gwen Latest Code Status on File Code Status Date Activated Date Inactivated Comments DNR-CCA 03/06/2020 5:15 PM 03/09/2020 3:12 PM Latest Code Status on File Code Status Date Activated Date Inactivated Comments DNR-CCA 03/06/2017 8:30 PM 03/09/2017 4:35 PM Documents on File Type Date Recorded Patient Hearing Aid Specialist Expl anation ACP-Advance Directive ACP-Power of Store Standards Associate 11/09/2018 4:07 PM P OA - Jennifer Hidalgo ACP-Advance Directive 03/14/2017 10:57 AM Discharge Instructions * Pharmacy* Lilia Tracey RPH - 03/07/2020 9:16 AM EDT * Discharge Instr - Lab* Deirdre Storm RN - 03/09/2020 11:36 AM EDT Your physician has ordered skilled home care services for you. Your home care will be provided by: [facility] [phone] * Additional Instructions* John Coe MD - 03/06/2020 Only take the Effexor; Stop taking the Aricept and Buspar; I put in a number for a Director Cost if you wish to have the abscess looked at kiersten Ashraf Learning About Delirium What is delirium? Delirium is a sudden change in mental condition. It leads to confusion and unusual behavior. Delirium is also called acute confusional state. Delirium affects all age groups. It can result from problems that affect the brain, such as stroke.It can also happen after an infection or when using certain medicines. Pain may also cause the problem. Seeing delirium in a loved one can be scary and sad. But it will go away most of the time. It usually lasts hours to days. The doctor will look for a cause and take steps to treat it and keep your loved one comfortable. What are the symptoms? Symptoms of delirium usually develop over several hours to a few days. Symptoms may change and be more or less severe. Symptoms include: A short attention span. Confusion. This is not knowing where you are, what time it is, or who others are. Hallucinations. This usually is seeing or hearing things that are not really there. Delusions. This is believing things that aren't true. Illusions. This is making a mistake in what you think is real. For example, you think a child is crying, but it's a pillow. Disorganized thinking. How is delirium treated? The doctor may: Find and treat the cause. This could be: ? Not getting enough fluids. ? An infection. ? A medicine or combination of medicines. ? Another medical problem. Prescribe a medicine. Make the hospital room as quiet as possible. You may be able to help your loved one by being present and talking to and touching him or her. Follow-up care is a emerson part of your treatment and safety. Be sure to make and go to all appointments, and call your doctor if you are having problems. It's also a good idea to know your test resultsand keep a list of the medicines you take. Where can you learn more? Go to [email or web address] and sign in to your [employer] account. Enter Z511 in the Search Health Information box to learn more about Learning About Delirium. If you do not have an account, please click on the Sign Up Now link. Current as of: October 22, 2019 Content Version: 12.5 [employer]. Care instructions adapted under license by [employer]. If you have questions about a medical condition or this instruction, always ask your healthcare professional. [employer] disclaims any warranty or liability for your use of this information. Refer to the Understanding Stroke Booklet given to you, written material provided to patient/family, addressing all signs & symptoms of a stroke, which are: sudden numbness or weakness, especially on one side of the body sudden confusion sudden difficulty speaking or understanding sudden loss of vision sudden dizziness or loss of balance or coordination sudden severe headache Explained the need to call EMS (911) immediately if signs & symptoms occur. Discussed medications that the patient is taking, will review medications again prior to discharge, risk factors, and the need for follow-up with a physician/TOP PRECIPITATOR OPERATOR/PA after discharge. Discussed the patient s personal risk factors for Stroke /TIA with patient/family, and ways to reduce the risk for a recurrent stroke. Patient's personal risk factors which were identified are: [x] High blood pressure [] High cholesterol [] Atrial fibrillation [] Diabetes [] Smoking [] Overweight [] Lack of Exercise [] Sleep apnea [] Prior heart disease or heart attack [] Excessive alcohol use [] Use of illicit drugs [] Personal history of previous TIA or stroke [] Family history of stroke or heart disease [] Carotid stenosis [] Heart failure [] Patent Foramen Ovale [] Migraine [] Hormone replacement therapy [] Current (up to six weeks post ) [x] Depression [] Sickle Cell [] Renal insufficiency - chronic [] None Refer to Understanding Stroke Booklet. Advised patient that risk for stroke/TIA can be reduced by modifying/controlling risk factors. Patient advised to take medications as prescribed, which will be detailed in the discharge instructions, and to not stop taking them without consulting a physician. In addition, pt. advised to maintain a healthy diet, exercise regularly and to not smoke. documented in this encounter* Instructions* Vargas Bray MD - 11/02/2020 Return for fever/nausea/vomiting * Attachments The following attachments cannot be sent through Care Everywhere. * Altered Mental Status (Chinese) documented in this encounter History of Present Illness * Malka Wen OTA - 03/09/2020 9:32 AM EDT Occupational Therapy Facility/Department: [facility] Daily Treatment Note NAME: Chay Teague : 1945 Date of Service: 03/09/2020 Discharge Recommendations: Subacute/Alf Facility Assessment Performance deficits / Impairments: Decreased functional mobility ;Decreased ADL status;Decreased ROM;Decreased strength;Decreased safe awareness;Decreased cognition;Decreased endurance;Decreased balance;Decreased high-level IADLs Assessment: Pt is progressing with her goals for ADLs and transfers. Pt had one small LOB standing at the sink and was able to recover with CGA/min assist. Pt SOB and fatigued with any activity. Pt is anticipating discharge to home with family assisting her. At this time she required CGA/light min for transfers, ADLs and functional standing tasks. Pt is expected to benefit from continued OT to increase strength and activity tolerance History: Pt admitted with AMS- found to have acute metabolic encephalopathy. CT and MRI negative. PMH is listed above. OT Education: OT Role;ADL Adaptive Strategies;Plan of Care;Transfer Training;Orientation Barriers to Learning: cognition, hard of hearing REQUIRES OT FOLLOW UP: Yes Activity Tolerance Activity Tolerance: Patient limited by fatigue;Treatment limited secondary to decreased cognition Safety Devices Safety Devices in place: Yes Type of devices: All fall risk precautions in place;Call light within reach;Gait belt;Patient at risk for falls;Nurse notified;Left in bed;Bed alarm in place Patient Diagnosis(es): The primary encounter diagnosis was Delirium. A diagnosis of Urinary tract infection without hematuria, site unspecified was also pertinent to this visit. has a past medical history of Anxiety, Asthma, Dementia (HCC), Depression, History of blood transfusion, Hypertension, and Hypothyroidism. has a past surgical history that includes hernia repair (12/02/2011); Gastric fundoplication (12/02/2011); Upper gastrointestinal endoscopy (06/15/2012); Upper gastrointestinal endoscopy (10/14/2011); and Hysterectomy, total abdominal. Restrictions Restrictions/Precautions Restrictions/Precautions: General Precautions, Fall Risk(tele, O2, bed alarm) Required Braces or Orthoses?: No Subjective General Chart Reviewed: Yes Patient assessed for rehabilitation services?: Yes Family / Caregiver Present: No Subjective Subjective: Pt awake and hesitantly agreeable to ADLs this am. Pt c/o pain in her left arm where anIV had infiltrated, but pt did not rate pain. Pt initially denied any other pain, but during the session c/o back pain General Comment Comments: Nursing reports OK to treat Pain Assessment Pain Assessment: Faces Mata-Ivy Pain Rating: Hurts even more Pain Type: Chronic pain Pain Location: Back Pain Orientation: Lower Pain Descriptors: Aching Pain Frequency: Intermittent Pain Onset: Gradual Functional Pain Assessment: Prevents or interferes some active activities and ADLs Non-Pharmaceutical Pain Intervention(s): Rest Response to Pain Intervention: Patient Satisfied Vital Signs Patient Currently in Pain: Yes Orientation Orientation Overall Orientation Status: Impaired Orientation Level: Oriented to person;Disoriented to place;Disoriented to time;Disoriented to situation Objective ADL Grooming: Contact guard assistance;Verbal cueing;Increased time to complete UE Bathing: Contact guard assistance;Verbal cueing;Increased time to complete UE Dressing: Contact guard assistance Toileting: Minimal assistance(for transfer, CGA for hygiene and clothing management) Additional Comments: Pt completed ADLs at the sink with CGA for managing faucets and using the appropriate hygiene product. Pt required cues for each activity to initiate, but once she started, she was able to complete washing her face, washing her arms/underarms, washing her trunk. Pt declined washing BLE due to fatigue from standing at the sink. Pt had one slight LOB during bilateral UE tasks, but used the sink to recover. Pt required light min assist to stand from the toilet using the grab bar on the right for support. Pt able to complete hygiene seated and CGA for pulling pants over hips. Balance Sitting Balance: Supervision Standing Balance: Contact guard assistance Standing Balance Time: >10 minutes Activity: ADLs at the sink Functional Mobility Functional - Mobility Device: Rolling Walker Activity: To/from bathroom Assist Level: Contact guard assistance Functional Mobility Comments: with FWW from recliner to bathroom. Pt c/o back fatigue and pain fromstanding at the sink for ADLs. Pt required CGA to manage FWW and cues to stay in the FWW as she approached her destination. Toilet Transfers Toilet - Technique: Ambulating Equipment Used: Standard toilet Toilet Transfer: Contact guard assistance;Minimal assistance Toilet Transfers Comments: Pt initially unable to stand from the toilet but cued to use grab bar onthe right and she stood with light assist to FWW. Transfers Sit to stand: Contact guard assistance Stand to sit: Contact guard assistance Transfer Comments: from recliner to FWW Cognition Overall Cognitive Status: Exceptions Arousal/Alertness: Appropriate responses to stimuli Following Commands: Follows one step commands with repetition;Follows one step commands with increased time Attention Span: Attends with cues to redirect Memory: Decreased recall of recent events;Decreased short term memory Safety Judgement: Decreased awareness of need for safety;Decreased awareness of need for assistance Problem Solving: Decreased awareness of errors;Assistance required to correct errors made;Assistance required to identify errors made Insights: Decreased awareness of deficits Initiation: Requires cues for some Sequencing: Requires cues for some Cognition Comment: h/o dementia Plan Plan Times per week: 4 visits Current Treatment Recommendations: Balance Training, Functional Mobility Training, Endurance Training, Safety Education & Training, Patient/Caregiver Education & Training, Equipment Evaluation, Education, & procurement, Self-Care / ADL, ROM, Strengthening, Cognitive/Perceptual Training,Cognitive Reorientation Plan Comment: POC and goals were made in collaboration with the pt. Goals Short term goals Time Frame for Short term goals: 5 visits Short term goal 1: Pt will complete functional transfers and mobility with SBA. progressing Short term goal 2: Pt will complete toileting including toilet transfer with SBA. progressing Short term goal 3: Pt will complete UB ADLs with mod I. progressing Short term goal 4: Pt will complete LB ADLs with SBA. not attempted Short term goal 5: Pt will complete functional standing >3 minutes with SBA in order to increaseoccupational participation. progressing Short term goal 6: Pt will complete BUE ROM/strengthening exercises in order to increase strength required for functional transfers. not attempted Therapy Time Individual Concurrent Group Co-treatment Time In 0840 Time Out 0910 Minutes 30 Timed Code Treatment Minutes: 30 Minutes(2x ADL) ROHINI Muniz/Sheldon * Claude Beal RD, CHEMA - 03/08/2020 3:24 PM EDT Discussed with PHOTOENGRAVER- pt advanced to Dental soft and is appropriate for thin liquids at this time. Initiated chocolate Ensure high protein per MNT protocol. Ensure High Protein provides 160 kcals, 16 gprotein per serving. Will monitor PO intakes for adequacy. RD will continue to follow this patient. * Bozena Shafer PTA - 03/08/2020 2:30 PM EDT Physical Therapy Facility/Department: [facility] Daily Treatment Note NAME: Chay Teague : 1945 Date of Service: 03/08/2020 Discharge Recommendations: Subacute/Alf Facility Assessment Assessment: Pt appears more clear today with increased orientation. Pt able to perform transfers and mobility with less assist but still becomes SOB with activity even though O2 sats do not drop. Pt able to perform exercises with increased cueing and guidance. Pt will benefit from conitnued therapyto further increase strength and functional mobility REQUIRES PT FOLLOW UP: Yes Activity Tolerance Activity Tolerance: Patient limited by fatigue;Patient limited by endurance Patient Diagnosis(es): The primary encounter diagnosis was Delirium. A diagnosis of Urinary tract infection without hematuria, site unspecified was also pertinent to this visit. has a past medical history of Anxiety, Asthma, Dementia (HCC), Depression, History of blood transfusion, Hypertension, and Hypothyroidism. has a past surgical history that includes hernia repair (12/02/2011); Gastric fundoplication (12/02/2011); Upper gastrointestinal endoscopy (06/15/2012); Upper gastrointestinal endoscopy (10/14/2011); and Hysterectomy, total abdominal. Restrictions Restrictions/Precautions Restrictions/Precautions: General Precautions, Fall Risk(tele, O2, bed alarm) Required Braces or Orthoses?: No Subjective General Chart Reviewed: Yes Family / Caregiver Present: No Subjective Subjective: Pt agreeable to therapy. Pt admits to being forgetful. General Comment Comments: Pt able to state name, birthday and where she is. Reported she came to hospital because she couldn't walk Pain Screening Patient Currently in Pain: Denies Objective Transfers Sit to Stand: Minimal Assistance;Stand by assistance Stand to sit: Minimal Assistance;Stand by assistance Comment: of 1 for support and safety with cueing for safer hand placement with 50% follow thru and need for cues with each attempt. Ambulation 1 Surface: level tile Device: Rolling Walker Assistance: Minimal assistance;Stand by assistance(of 1 for safety) Quality of Gait: Pt walks with a reciprical pattern with increased cueing for directions. No blatant balance loss Distance: 30' x 2 Comments: Pt did not have O2 on upon entry. Saturation was 98% without. Post gait, pt remained 97 -98 % Exercises Hip Flexion: 1 set / 20 reps in sitting B LE individually Hip Abduction: 1 set / 20 reps in sitting B LE isometrically Knee Long Arc Quad: 1 set / 20 reps in sitting B LE individually Ankle Pumps: 1 set / 20 reps in sitting B LE Hip Adduction: 1 set / 20 reps in sitting B LE isometrically) Comments: Rest breaks between exercises and walks secondary to SOB but O2 sats remain within functional levels Goals Short term goals Time Frame for Short term goals: 5 visits Short term goal 1: Pt will complete bed mobility with SBA in order to improve independence with mobility. (NA - in chair pre and post activity) Short term goal 2: Pt will complete functional transfers with FWW and SBA in order to improve safety and prepare for ambulation. (partially met) Short term goal 3: Pt will ambulate 25 ft x 2 with FWW and SBA in order to improve safety with gait. (partially met) Short term goal 4: Pt will complete 2-3 sets / 10 reps LE exercises in order to improve strength and activity tolerance for mobility. (partially met) Patient Goals Patient goals : Pt states she wants to get out of bed Plan Plan Times per week: 4 visits Current Treatment Recommendations: (Cont ther ex and functional training) Safety Devices Type of devices: All fall risk precautions in place, Call light within reach, Gait belt, Left in chair, Chair alarm in place, Patient at risk for falls, Nurse notified Therapy Time Individual Concurrent Group Co-treatment Time In 1345 Time Out 1415 Minutes 30 Timed Code Treatment Minutes: 25 Minutes(ther ex and gait) Bozena Shafer CONTROL CLERK HEAD * Meghna Rothman RN - 03/08/2020 11:30 AM EDT Patient up to chair. Chair alarm in place. * Yoly Cooney SLP - 03/08/2020 10:47 AM EDT Speech Language Pathology Facility/Department: [facility] TELEMETRY Dysphagia Treatment Note NAME: Chay Teague : 1945 Patient Diagnosis(es): Patient Active Problem List Diagnosis Essential hypertension Depression Vitamin D deficiency Closed fracture of left distal radius and ulna Morbidly obese (HCC) Mild intermittent asthma without complication Delirium Allergies: No Known Allergies O2 Device: Nasal cannula Liters of Oxygen: 2 L Current Diet Level: Puree diet with mildly thick liquids Compensatory Techniques: FEED as of 03/07; upgraded today with the following: SET UP []Chin tuck [x]Single bolus [x]Alternate bites/ sips as needed [] External Pacing []No straws []Small diameter straw []Liquid wash []Swallow x 2 with each bolus []Effortful Swallow [] [x]Position patient upright []Upright After Meal at least 30 minutes Pain:no current complaint S: Pt was alert, career center advisor at bedside. O: Assess advance diet trials. A: MRI was negative for acute stroke, limited d/t movement. Recommended repeat as needed. Pt's eyesopen and responding to conversation. Trial of antoine crackers and thin OJ (orange juice) and water.No overt deficits. Overtly good oral control without grimace or loss of bolus. Pt is able to feed self with set up. Recommend advance diet to dental soft with thin liquids. D/W RDLD no restriction needs at this time. Pt does like chocolate ensure if supplement necessary. [] Goal met [x] Progressing as expected [] Progressing slower than expected [] Medical status inhibits participation [] Goals not addressed this session [] Goals revised this session [] Unable to show any progress towards functional goals [] Progress towards functional goal is gradual / fair P: Advanced diet to dental soft. Total Minutes: 24 minutes Yoly Cooney M.A.CCC/PHOTOENGRAVER Speech-Language Pathologist * John Coe MD - 03/08/2020 9:07 AM EDT Hospitalist Progress Note 03/08/2020 9:07 AM [phone]: Please page mt [phone] for patient care issues. [phone]: Please page [facility] night Hospitalist for any issues. Subjective: Admit Date: 03/06/2020 PCP: Cynthia Uribe MD Interval History: Pt continues to improve. Per mechanical maintenance worker, mentation is near 90 %. Pt more talkative and able to converse with everyone in the room. No overnight issues. DIET DYSPHAGIA PUREED; Mildly Thick ([place]) Patient Vitals for the past 96 hrs (Last 3 readings): Weight 03/06/20 1721 200 lb (90.7 kg) In: - Out: 400 [Urine:400] Medications: sodium chloride 50 mL/hr at 03/06/201956 sodium chloride flush 10 mL Intravenous 2 times per day enoxaparin 40 mg Subcutaneous Daily LORazepam 0.25 mg Intravenous Once mometasone-formoterol 2 puff Inhalation BID calcium carbonate 500 mg Oral Daily vitamin D 50,000 Units Oral Weekly levothyroxine 25 mcg Oral Daily therapeutic multivitamin-minerals 1 tablet Oral Daily venlafaxine 150 mg Oral Daily LABS: CBC: Recent Labs 03/06/20 1238 03/07/20 0340 WBC 8.2 6.2 RBC 4.42 4.26 HGB 13.3 12.7 HCT 38.6 38.1 MCV 87.4 89.5 RDW 15.3* 15.4* PLT 302 248 BMP: Recent Labs 03/06/20 1238 03/07/20 0340 NA 140 144 K 3.1* 3.7 CL 103 107 CO2 29 27 BUN 22* 15 CREATININE 0.83 0.76 GLUCOSE 116* 101* CALCIUM 9.1 8.3* ANIONGAP 8 10 LIVER PROFILE: Recent Labs 03/06/20 1238 03/07/20 0340 AST 43 45 ALT 27 31 BILITOT 0.7 0.6 ALKPHOS 135* 125 LABALBU 4.0 3.5 PROT 7.6 6.6 PT/INR: No results for input(s): PROTIME, INR in the last 72 hours. CARDIAC ENZYMES: Recent Labs 03/06/20 1238 03/06/20 1904 03/07/20 0340 TROPONINI <0.012 <0.012 0.013 Procalcitonin: No results found for: PROCAL Glucose: No results for input(s): POCGLU in the last 72 hours. Objective: Vitals: BP (!) 142/69 Pulse 78 Temp 97.7 F (36.5 C) (Temporal) Resp 18 Ht 5' 3 (1.6 m) Comment: per 08/2019 office visit Wt 200 lb (90.7 kg) Comment: per 08/2019 office visit SpO2 98% BMI 35.43 kg/m Pulse Ox: SpO2 Av % Min: 96 % Max: 98 % Supplemental O2: O2 Flow Rate (L/min): 2 L/min General appearance: No apparent distress, appears stated age and cooperative with exam; Obese female, more alert today; AAO x 3 when given slightly more time to answer HEENT: Normal cephalic, atraumatic without obvious deformity. Pupils equal, round, and reactive to light. Extra ocular muscles intact. Conjunctivae/corneas clear. Neck: Supple, with full range of motion. No jugular venous distention. Trachea midline. No lymphadenopathy. Respiratory: Normal respiratory effort. Clear to auscultation, bilaterally without Rales/Wheezes/Rhonchi. Cardiovascular: Regular rate and rhythm with normal S1/S2 without murmurs, rubs or gallops. Abdomen: Soft, non-tender, non-distended with normal bowel sounds. No rebound or guarding. Musculoskeletal: No clubbing, cyanosis or edema bilaterally. Full range of motion without deformity. Skin: Skin color, texture, turgor normal. No rashes or lesions Neurologic: Neurovascularly intact without any focal sensory/motor deficits. Cranial nerves: II-XIIintact, grossly non-focal. Assessment 1. Acute Toxic Metabolic Encephalopathy 2/2 Medications - Pt continues to improve with discontinuation of Aricept and Buspar; blood cultures negative 2. Dementia - D/C Aricept per Neurology 3. Hypokalemia - Resolved 4. Asthma 5. Anxiety 6. Depression - Effexor 7. Hypothyroidism - Synthroid 8. Obesity due to excess calories 9. Questionable Labial Abscess - Unable to visualize; Outpatient Retoucher referral Diagnosis Date Anxiety Asthma Dementia (HCC) Depression History of blood transfusion Hypertension Hypothyroidism Plan - Monitor Mentation - PT/OT -am labs, replace lytes prn -increase activity -DVT prophylaxis: [x] Lovenox [] Heparin [] SCDs [x] Encourage ambulation [] Already on Anticoagulation Advance Directive: DNR-CCA Discharge plannin-48 hours John Coe MD Division of Hospitalist Medicine Inpatient Medical Services PAGER: [phone] * Meghna Rothman RN - 03/08/2020 8:15 AM EDT Spoke with patients daughter Jennifer regarding updates. * Julia Lantigua PT - 03/07/2020 3:13 PM EDT Physical Therapy Facility/Department: [facility] 4S TELEMETRY Initial Assessment NAME: Chay Teague : 1945 Date of Service: 03/07/2020 Having reviewed the treatment plan and goals for this patient, I certify that the plan of care below is medically necessary and appropriate. Discharge Recommendations: Subacute/Alf Facility PT Equipment Recommendations Other: TBD at next level of care Assessment Body structures, Functions, Activity limitations: Decreased functional mobility ;Decreased strength;Decreased safe awareness;Decreased cognition;Decreased endurance;Decreased balance Assessment: Pt presents with decreased functional mobility, decreased strength, decreased safety awareness/cognition, decreased endurance and impaired balance. Pt has decreased standing balance requiring 2 person assist for transfers and minimal ambulation placing her at high risk of falling. Pt could benefit from skilled PT in order to address her decreased functional mobility, strength, balanceand safety. Prognosis: Good;Fair Decision Making: Medium Complexity History: Pt admitted with altered mental status and found to have acute metabolic encephalopathy. CT and MRI negative. Exam: AM-PAC Clinical Presentation: Pt admitted with altered mental status and found to have acute metabolic encephalopathy. CT and MRI negative. Pt has medical history significant for dementia and other comorbidities as listed above that contributes to her clinical presentation. At baseline patient is functionally independent for mobility. Currently patient is unsafe to return home secondary to her increasedneed for assist and fall risks with mobility. PT Education: Goals;PT Role;Plan of Care;Transfer Training;Energy Conservation;General Safety;Orientation;Gait Training;Functional Mobility Training;Injury Prevention Patient Education: recommendation for rehab Barriers to Learning: Pt has noted cognitive deficits, h/o dementia and [place] which may impact her ability to learn. REQUIRES PT FOLLOW UP: Yes Activity Tolerance Activity Tolerance: Patient limited by fatigue;Patient limited by endurance;Patient limited by cognitive status Patient Diagnosis(es): The primary encounter diagnosis was Delirium. A diagnosis of Urinary tract infection without hematuria, site unspecified was also pertinent to this visit. has a past medical history of Anxiety, Asthma, Dementia (HCC), Depression, History of blood transfusion, Hypertension, and Hypothyroidism. has a past surgical history that includes hernia repair (12/02/2011); Gastric fundoplication (12/02/2011); Upper gastrointestinal endoscopy (06/15/2012); Upper gastrointestinal endoscopy (10/14/2011); and Hysterectomy, total abdominal. Restrictions Restrictions/Precautions Restrictions/Precautions: General Precautions, Fall Risk(tele, O2, bed alarm) Required Braces or Orthoses?: No Vision/Hearing Vision: Within Functional Limits Vision Exceptions: Wears glasses for reading Hearing: Within functional limits Hearing Exceptions: Hard of hearing/hearing concerns Subjective General Chart Reviewed: Yes Patient assessed for rehabilitation services?: Yes Family / Caregiver Present: No General Comment Comments: Per RN patient okay for therapy. Co-eval with OT. Subjective Subjective: Pt pleasantly confused and agreeable to therapy. Pain Screening Patient Currently in Pain: Denies Vital Signs Patient Currently in Pain: Denies Orientation Orientation Overall Orientation Status: Impaired Orientation Level: Disoriented X4(attends appropriately to first name) Social/Functional History Social/Functional History Lives With: Alone Type of Home: House(Condo) Home Layout: One level Home Access: Stairs to enter with rails Entrance Stairs - Number of Steps: 2 Bathroom Toilet: Standard Bathroom Accessibility: Accessible Receives Help From: Other (comment), Family(aide 6 days a week anad family assist at night ) ADL Assistance: Independent Homemaking Assistance: Needs assistance Homemaking Responsibilities: No Ambulation Assistance: Independent Transfer Assistance: Independent Active Log Manager: No Patient's Log Manager Info: Family Mode of Transportation: Car Occupation: Retired Additional Comments: Pt is a questionable historian and information above provide by CM whom spoke with patients DTR. Cognition Cognition Overall Cognitive Status: Exceptions Arousal/Alertness: Appropriate responses to stimuli Following Commands: Follows one step commands with increased time;Follows one step commands with repetition Attention Span: Attends with cues to redirect Memory: Decreased recall of biographical Information;Decreased recall of precautions;Decreased recall of recent events;Decreased short term memory;Decreased roasterman memory Safety Judgement: Decreased awareness of need for assistance;Decreased awareness of need for safety Problem Solving: Assistance required to generate solutions;Assistance required to implement solutions;Decreased awareness of errors;Assistance required to correct errors made;Assistance required to identify errors made Insights: Decreased awareness of deficits Initiation: Requires cues for all Sequencing: Requires cues for all Cognition Comment: h/o dementia Objective Observation/Palpation Posture: Fair Observation: 2L O2 and tele intact SpO2 >/=95% throughout session AROM RLE (degrees) RLE AROM: WFL AROM LLE (degrees) LLE AROM : WFL Strength RLE Comment: demonstrates <3/5 with mobility Strength LLE Comment: demonstrates <3/5 with mobility Sensation Overall Sensation Status: WFL(no complaints) Bed mobility Supine to Sit: Maximum assistance;2 Person assistance Sit to Supine: Maximum assistance;2 Person assistance Scooting: Maximal assistance;2 Person assistance Comment: HOB elevated, use of bed rail. Assist for trunk and B LE management with cues for intiation and sequencing throughout. Denies dizziness. Transfers Sit to Stand: Moderate Assistance;2 Person Assistance(to FWW from EOB, pulls up on FWW with addtional assist to stabilize device ) Stand to sit: Moderate Assistance;2 Person Assistance Comment: Denies dizziness in standing. Ambulation Ambulation?: Yes Ambulation 1 Surface: level tile Device: Rolling Walker Other Apparatus: O2 Assistance: Moderate assistance;2 Person assistance Quality of Gait: Pt demonstrates short shuffled stepping laterally EOB with instability throughout all phases Distance: 1 ft x 1 Comments: Pt requires 100% cues for initiation and sequencing, assist for stability and FWW management. Pt is considered a high risk of falling. Stairs/Curb Stairs?: No Balance Posture: Fair Sitting - Static: Fair Sitting - Dynamic: Fair;- Standing - Static: Poor Standing - Dynamic: Poor;- Plan Plan Times per week: 5 visits Current Treatment Recommendations: Strengthening, Balance Training, Functional Mobility Training, Transfer Training, Cognitive/Perceptual Training, Endurance Training, Gait Training, Neuromuscular Re-education, Safety Education & Training, Cognitive Reorientation, Patient/Caregiver Education & Training, Equipment Evaluation, Education, & procurement Plan Comment: Goals and/or treatment plan were established in collaboration with patient. Safety Devices Type of devices: All fall risk precautions in place, Bed alarm in place, Call light within reach, Gait belt, Patient at risk for falls, Left in bed, Nurse notified [facility] Score [facility] Inpatient Mobility Raw Score : 10 (03/07/20 1504) [facility] Inpatient T-Scale Score : 32.29 (03/07/20 1504) Mobility Inpatient CMS 0-100% Score: 76.75 (03/07/20 1504) Mobility Inpatient CMS G-Code Modifier : CL (03/07/20 1504) [facility] Mobility Inpatient How much difficulty turning over in bed?: A Lot How much difficulty sitting down on / standing up from a chair with arms?: A Lot How much difficulty moving from lying on back to sitting on side of bed?: A Lot How much help from another person moving to and from a bed to a chair?: A Lot How much help from another person needed to walk in hospital room?: Total How much help from another person for climbing 3-5 steps with a railing?: Total [facility] Inpatient Mobility Raw Score : 10 [facility] Inpatient T-Scale Score : 32.29 Mobility Inpatient CMS 0-100% Score: 76.75 Mobility Inpatient CMS G-Code Modifier : CL Goals Short term goals Time Frame for Short term goals: 5 visits Short term goal 1: Pt will complete bed mobility with SBA in order to improve independence with mobility. Short term goal 2: Pt will complete functional transfers with FWW and SBA in order to improve safety and prepare for ambulation. Short term goal 3: Pt will ambulate 25 ft x 2 with FWW and SBA in order to improve safety with gait. Short term goal 4: Pt will complete 2-3 sets / 10 reps LE exercises in order to improve strength and activity tolerance for mobility. Patient Goals Patient goals : Pt states she wants to get out of bed Therapy Time Individual Concurrent Group Co-treatment Time In 1412(co-eval with OT) Time Out 1425 Minutes 13 Julia Lantigua, PT * Rosina Pascual, OT - 03/07/2020 3:11 PM EDT Occupational Therapy Occupational Therapy Initial Assessment Date: 03/07/2020 Patient Name: Chay Teague : 1945 Having reviewed the treatment plan and goals for this patient, I certify that the plan of care below is medically necessary and appropriate. Date of Service: 03/07/2020 Discharge Recommendations: Subacute/Alf Facility Assessment Performance deficits / Impairments: Decreased functional mobility ;Decreased ADL status;Decreased ROM;Decreased strength;Decreased safe awareness;Decreased cognition;Decreased endurance;Decreased balance;Decreased high-level IADLs Assessment: Pt was previously independent in ADLs, functional transfers and mobility; pt now requires min-max A for ADLs, and mod A x2 for sit<>stands and ~3 lateral steps. Pt is limited by impaired balance, endurance, strength, ROM, and cognition. Pt should benefit from skilled OT services in order to increase safety and independence in occupational participation. Prognosis: Fair;Good Decision Making: Medium Complexity History: Pt admitted with AMS- found to have acute metabolic encephalopathy. CT and MRI negative. PMH is listed above. Exam: AM-PAC Assistance / Modification: mod A OT Education: OT Role;Plan of Care;Transfer Training;Orientation;Equipment Barriers to Learning: cognition, hard of hearing REQUIRES OT FOLLOW UP: Yes Activity Tolerance Activity Tolerance: Patient limited by fatigue;Treatment limited secondary to decreased cognition Safety Devices Safety Devices in place: Yes Type of devices: All fall risk precautions in place;Call light within reach;Gait belt;Patient at risk for falls;Nurse notified;Left in bed;Bed alarm in place Patient Diagnosis(es): The primary encounter diagnosis was Delirium. A diagnosis of Urinary tract infection without hematuria, site unspecified was also pertinent to this visit. has a past medical history of Anxiety, Asthma, Dementia (HCC), Depression, History of blood transfusion, Hypertension, and Hypothyroidism. has a past surgical history that includes hernia repair (12/02/2011); Gastric fundoplication (12/02/2011); Upper gastrointestinal endoscopy (06/15/2012); Upper gastrointestinal endoscopy (10/14/2011); and Hysterectomy, total abdominal. Restrictions Restrictions/Precautions Restrictions/Precautions: General Precautions, Fall Risk(tele, O2, bed alarm) Required Braces or Orthoses?: No Subjective General Chart Reviewed: Yes Patient assessed for rehabilitation services?: Yes Family / Caregiver Present: No Subjective Subjective: Pt pleasantly confused. General Comment Comments: Per RN, ok for pt to participate in OT eval. Patient Currently in Pain: Denies Vital Signs Temp: 97.6 F (36.4 C) Temp Source: Temporal Pulse: 80 Heart Rate Source: Monitor Resp: 18 BP: (!) 158/77 BP Location: Right Arm MAP (mmHg): 104 Patient Position: Supine Patient Currently in Pain: Denies Oxygen Therapy SpO2: 97 % O2 Device: Nasal cannula O2 Flow Rate (L/min): 2 L/min Social/Functional History Social/Functional History Lives With: Alone Type of Home: House(Condo) Home Layout: One level Home Access: Stairs to enter with rails Entrance Stairs - Number of Steps: 2 Bathroom Toilet: Standard Bathroom Accessibility: Accessible Receives Help From: Other (comment), Family(aide 6 days a week anad family assist at night ) ADL Assistance: Independent Homemaking Assistance: Needs assistance Homemaking Responsibilities: No Ambulation Assistance: Independent Transfer Assistance: Independent Active Log Manager: No Patient's Log Manager Info: Family Mode of Transportation: Car Occupation: Retired Additional Comments: Pt is a questionable historian and information above provide by CM whom spoke with patients DTR. Objective Vision: Within Functional Limits Vision Exceptions: Wears glasses for reading Hearing: Exceptions to WFL Hearing Exceptions: Hard of hearing/hearing concerns Orientation Overall Orientation Status: Impaired Orientation Level: Disoriented X4(oriented to first name but not last, oriented to month and date but not year) Observation/Palpation Posture: Fair Observation: 2L O2 and tele intact SpO2 >/=95% throughout session Balance Sitting Balance: Supervision(static sitting at EOB) Standing Balance: Moderate assistance(x2 for static/dynamic standing at fww) Functional Mobility Functional - Mobility Device: Rolling Walker Activity: Other(~3 lateral steps) Assist Level: Moderate assistance Functional Mobility Comments: x2 at fww- pt required assist for balance as well as fww management with no true LOB noted. Pt with increased SOB with mobility, SpO2 >/=95%. ADL Feeding: Independent Grooming: Minimal assistance UE Bathing: Minimal assistance LE Bathing: Maximum assistance UE Dressing: Minimal assistance LE Dressing: Maximum assistance Toileting: Maximum assistance Bed mobility Supine to Sit: Maximum assistance;2 Person assistance Sit to Supine: Maximum assistance;2 Person assistance Scooting: Maximal assistance;2 Person assistance Comment: HOB elevated and use of bed rial. Pt required assist for BLE management and trunk with VC for iniation and sequencing. Denied dizziness with changes in positioning. Transfers Sit to stand: Moderate assistance;2 Person assistance Stand to sit: Moderate assistance;2 Person assistance(assist for controlled descent) Transfer Comments: at fww- pt required VC for safe hand placement as pt attempted to hold onto fww during transfer Cognition Overall Cognitive Status: Exceptions Arousal/Alertness: Appropriate responses to stimuli Following Commands: Follows one step commands with increased time;Follows one step commands with repetition Attention Span: Attends with cues to redirect Memory: Decreased recall of biographical Information;Decreased recall of precautions;Decreased recall of recent events;Decreased short term memory;Decreased mcc memory Safety Judgement: Decreased awareness of need for assistance;Decreased awareness of need for safety Problem Solving: Assistance required to generate solutions;Assistance required to implement solutions;Decreased awareness of errors;Assistance required to correct errors made;Assistance required to identify errors made Insights: Decreased awareness of deficits Initiation: Requires cues for all Sequencing: Requires cues for all Cognition Comment: h/o dementia Sensation Overall Sensation Status: WFL(no complaints) LUE AROM (degrees) LUE General AROM: Observed functionally: Shld ~80, distal WFL RUE AROM (degrees) RUE General AROM: Observed functionally: Shld ~80, distal WFL LUE Strength LUE Strength Comment: <3/5 RUE Strength RUE Strength Comment: <3/5 Plan Plan Times per week: 5 visits Current Treatment Recommendations: Balance Training, Functional Mobility Training, Endurance Training, Safety Education & Training, Patient/Caregiver Education & Training, Equipment Evaluation, Education, & procurement, Self-Care / ADL, ROM, Strengthening, Cognitive/Perceptual Training,Cognitive Reorientation Plan Comment: POC and goals were made in collaboration with the pt. AM-PAC Score AM-PAC Inpatient Daily Activity Raw Score: 16 (03/07/20 1505) AM-PAC Inpatient ADL T-Scale Score : 35.96 (03/07/20 1505) ADL Inpatient CMS 0-100% Score: 53.32 (03/07/20 1505) ADL Inpatient CMS G-Code Modifier : CK (03/07/20 1505) Goals Short term goals Time Frame for Short term goals: 5 visits Short term goal 1: Pt will complete functional transfers and mobility with SBA. Short term goal 2: Pt will complete toileting including toilet transfer with SBA. Short term goal 3: Pt will complete UB ADLs with mod I. Short term goal 4: Pt will complete LB ADLs with SBA. Short term goal 5: Pt will complete functional standing >3 minutes with SBA in order to increaseoccupational participation. Short term goal 6: Pt will complete BUE ROM/strengthening exercises in order to increase strength required for functional transfers. Therapy Time Individual Concurrent Group Co-treatment Time In 1412(co-eval with PT) Time Out 1425 Minutes 13 Rosina Pascual OT * Julia Lantigua PT - 03/07/2020 10:49 AM EDT Physical Therapy Facility/Department: [facility] 4S TELEMETRY Initial Assessment NAME: Chay Teague : 1945 Date of Service: 03/07/2020 Chart review completed. Per RN patient okay to participate in therapy assessments. Attempted to complete evaluation 3x this morning (initially with respiratory therapist, on second approach patient with speech therapist, on third attempt transport present to take patient to MRI). Will continue to follow and re-attempt as appropriate. Julia Lantigua, PT * Rosina Pascual OT - 03/07/2020 10:46 AM EDT Occupational Therapy Occupational Therapy Initial Assessment Date: 03/07/2020 Patient Name: Chay Teague : 1945 Date of Service: 03/07/2020 Chart review completed. Per RN patient okay to participate in therapy assessments. Attempted to complete evaluation 3x this morning (initially with respiratory therapist, on second approach patient with speech therapist, on third attempt transport present to take patient to MRI). Will continue to follow and re-attempt as appropriate. Rosina Pascual OT * Delia Chavez APRN - CNP - 03/07/2020 10:09 AM EDT Spoke w/Dr. Paulino- Rec DC Aricept/Buspar * Keena Ortega RN - 03/07/2020 10:01 AM EDT Updated pts daughter, Jennifer. Via phone * Claude Beal RD, [place]MA - 03/07/2020 9:37 AM EDT Nutrition Assessment Type and Reason for Visit: Initial, Positive Nutrition Screen Nutrition Recommendations: 1. Pt is NPO due to failed nursing swallow screen. PHOTOENGRAVER consulted for further evaluation. Provide diet textures per PHOTOENGRAVER recommendation. 2. Will assess PO intake adequacy once diet is advance to determine need for additional ONS. 3. Monitor for timely nutrition progression, wts, and labs. RD will follow. Nutrition Assessment: Pt admit with delirium/AMS. Pt is currently NPO due to failing nursing bedside swallow assessment. PHOTOENGRAVER consult ordered for further evaluation. Pt with hx of Dementia, but per notes, was able to perform simple tasks to care for self. Pt has a daughter- Jennifer Malnutrition Assessment: Malnutrition Status: Insufficient data Context: Acute illness or injury Findings of the 6 clinical characteristics of malnutrition (Minimum of 2 out of 6 clinical characteristics is required to make the diagnosis of moderate or severe Protein Calorie Malnutrition based on AND/ASPEN Guidelines): 1. Energy Intake-Less than or equal to 50% of estimated energy requirement, (npo currently due to failed nursing swallow assessment) 2. Weight Loss-No significant weight loss, 3. Fat Loss-Unable to assess, 4. Muscle Loss-Unable to assess, 5. Fluid Accumulation-Mild fluid accumulation, Extremities(+1 non pitting BLE) 6. Wagon Drill Operator Strength-Not measured Nutrition Risk Level: High Nutrient Needs: Estimated Daily Total Kcal: 8748-7685 kcals(28-30) Estimated Daily Protein (g): 52-62(1-1.2) Estimated Daily Total Fluid (ml/day): 1560 ml/day or per MD Nutrition Diagnosis: Problem: Inadequate oral intake, Swallowing difficulty Etiology: related to Acute injury/trauma, Cognitive or neurological impairment, Insufficient energy/nutrient consumption ? Signs and symptoms: as evidenced by NPO status due to medical condition Objective Information: Nutrition-Focused Physical Findings: +1 non pitting BLE. Urinalysis found to have bacteria (few 1-5) with occult blood, Glucose 101, 116, ca++ 8.3, Troponin 0.013, Hgb A1c 5.5%, NT pro BNP 65, albumin 3.5 Wound Type: (right neck/shoulder abrasion, red groin) Current Nutrition Therapies: Oral Diet Orders: NPO Oral Diet intake: NPO Oral Nutrition Supplement (ONS) Orders: None ONS intake: NPO Anthropometric Measures: Ht: 5' 3 (160 cm)(per 08/2019 office visit) Current Body Wt: 200 lb (90.7 kg) Admission Body Wt: 200 lb (90.7 kg) Usual Body Wt: 200 lb (90.7 kg)(08/31/19) % Weight Change: , no significant wt loss noted [place] Body Wt: 115 lb (52.2 kg), % [place] Body 174% BMI Classification: BMI 35.0 - 39.9 Obese Class II Nutrition Interventions: Continue NPO Continued Inpatient Monitoring, Swallow Evaluation, Speech Therapy Nutrition Evaluation: Evaluation: Goals set Goals: Pt will receive/tolerate adequate nutrition with safe swallow Monitoring: Nutrition Progression, Diet Tolerance, I&O, Mental Status/Confusion, Weight, Pertinent Labs, Chewing/Swallowing, Monitor Bowel Function Contact Number: [phone] * Yoly Cooney, PHOTOENGRAVER - 03/07/2020 8:17 AM EDT Speech Language Pathology Facility/Department: [facility] TELEMETRY CLINICAL BEDSIDE SWALLOW EVALUATION Having reviewed the treatment plan and goals for this patient, I certify that the plan below plan is medically necessary and appropriate. NAME: Chay Teague : 1945 ADMISSION DATE: 03/06/2020 ADMITTING DIAGNOSIS: has Essential hypertension; Depression; Vitamin D deficiency; Closed fracture of left distal radius and ulna; Morbidly obese (HCC); Mild intermittent asthma without complication;and Delirium on their problem list. ONSET DATE: 03/06/2020 Pt brought to ED with increased confusion. She did not recognize people that she usually does. Decreased level of alertness. Stroke work up. UTI. Baseline confusion (mild) Recent Chest Xray/CT of Chest: ( Date 03/06/2020 ) FINDINGS: The cardiac silhouette is within normal limits. There is calcific atheromatous disease of the thoracic aorta. No focal consolidation or opacification is seen within the lungs. No pleural effusion or pneumothorax is identified. Degenerative changes of the thoracic spine are noted. IMPRESSION: No acute cardiopulmonary process. Date of Eval: 03/07/2020 Evaluating Therapist: Yoly Cooney Current Diet level: Current Diet : NPO Current Liquid Diet : NPO Primary Complaint Patient Complaint: Pt with lethargy and decreASE FOLLOWING INSTRUCTIONS. Pain: Reason for Referral Chay Teague was referred for a bedside swallow evaluation to assess the efficiency of her swallowfunction, identify signs and symptoms of aspiration and make recommendations regarding safe dietaryconsistencies, effective compensatory strategies, and safe eating environment. Impression Dysphagia Impression : Recommend puree diet with mildly thick liquids. MRI pending. no asymmetry. Cognition currently effecting eating/swallowing. Treatment Plan Requires PHOTOENGRAVER Intervention: Yes Duration/Frequency of Treatment: 3 visits Recommended Diet and Intervention Diet Solids Recommendation: Dysphagia Pureed (Dysphagia I) Liquid Consistency Recommendation: Mildly Thick ([place]) Recommended Form of Meds: PO Recommendations: Total feed;Assist feed Therapeutic Interventions: Patient/Family education Compensatory Swallowing Strategies Compensatory Swallowing Strategies: Alternate solids and liquids;Upright as possible for all oral intake;External pacing Treatment/Goals Short-term Goals Timeframe for Short-term Goals: 3 visits Goal 1: Pt will tolerate advance trials with PHOTOENGRAVER. Goal 2: Pt will tolerate puree diet with mildly thick liquids without respiratory distress/symtoms aspiration. Goal 3: Pt will advance to soft diet as tolerated. General Chart Reviewed: Yes Subjective Subjective: pumper gager apprentice visiting at bedside Behavior/Cognition: Lethargic;Requires cueing Respiratory Status: O2 via nasual cannula O2 Device: Nasal cannula Liters of Oxygen: 2 L Communication Observation: Aphasia(fluctuated.) Follows Directions: Simple Dentition: Dentures top;Dentures bottom Patient Positioning: Upright in bed Baseline Vocal Quality: Normal Volitional Swallow: Delayed Prior Dysphagia History: None indicated in [facility] Consistencies Administered: Dysphagia Minced and Moist (Dysphagia II);[place] - cup;Thin - cup;Ice Chips Vision/Hearing Vision Vision: Within Functional Limits(APPEARS. Able to identify number of fingers held up in all planes.) Hearing Hearing: Within functional limits Oral Motor Deficits Oral/Motor Oral Motor: Exceptions to WFL Lingual Strength: Reduced Lingual Coordination: Reduced Oral Phase Dysfunction Oral Phase Oral Phase - Comment: Pt appear to hold bolus with pudding and thin liquids. She clench lips slightly closed and made a grimmace with thin liquids; appearing to have difficulyt with oral control, questionable spillage to pharynx prior to onset of swallowing. Indicators of Pharyngeal Phase Dysfunction Pharyngeal Phase Pharyngeal: +layrngeal elevation. No direct observable signs of deficits, throat clearing or increased work of breathing. Baseline pt is somewhat anxious, breathing with increased effort at times. Prognosis Prognosis Prognosis for safe diet advancement: fair Barriers to reach goals: cognitive deficits Barriers/Prognosis Comment: UTI, stroke r/o Individuals consulted Consulted and agree with results and recommendations: Patient;Other (add comment)(Caregiver) Education Patient Education: Recommendations Patient Education Response: Needs reinforcement Therapy Time PHOTOENGRAVER Individual Minutes Time In: 1010 Time Out: 1036 Minutes: 26 RONALD Higgins 03/07/2020 1:38 PM * John Coe MD - 03/07/2020 7:34 AM EDT Hospitalist Progress Note 03/07/2020 7:34 AM [phone]: Please page me [phone] for patient care issues. [phone]: Please page [facility] night Hospitalist for any issues. Subjective: Admit Date: 03/06/2020 PCP: Cynthia Uribe MD Interval History: Automatic Equipment Technician in the room and states mentation is slightly improved. Daughter called nursing staff and stated she was concerned about an abscess in her groin. MRI/ MRA reviewed with neurology. No overnight issues. Diet NPO Effective Now Patient Vitals for the past 96 hrs (Last 3 readings): Weight 03/06/20 1721 200 lb (90.7 kg) In: - Out: 907 [Urine:907] Medications: sodium chloride 50 mL/hr at 03/06/201956 sodium chloride flush 10 mL Intravenous 2 times per day atorvastatin 40 mg Oral Nightly aspirin 81 mg Oral Daily Or aspirin 300 mg Rectal Daily enoxaparin 40 mg Subcutaneous Daily LORazepam 0.25 mg Intravenous Once cefTRIAXone (ROCEPHIN) IV 1 g Intravenous Q24H potassium chloride 40 mEq Oral BID WC mometasone-formoterol 2 puff Inhalation BID calcium carbonate 500 mg Oral Daily donepezil 5 mg Oral Nightly vitamin D 50,000 Units Oral Weekly levothyroxine 25 mcg Oral Daily therapeutic multivitamin-minerals 1 tablet Oral Daily venlafaxine 150 mg Oral Daily LABS: CBC: Recent Labs 03/06/20 1238 03/07/20 0340 WBC 8.2 6.2 RBC 4.42 4.26 HGB 13.3 12.7 HCT 38.6 38.1 MCV 87.4 89.5 RDW 15.3* 15.4* PLT 302 248 BMP: Recent Labs 03/06/20 1238 03/07/20 0340 NA 140 144 K 3.1* 3.7 CL 103 107 CO2 29 27 BUN 22* 15 CREATININE 0.83 0.76 GLUCOSE 116* 101* CALCIUM 9.1 8.3* ANIONGAP 8 10 LIVER PROFILE: Recent Labs 03/06/20 1238 03/07/20 0340 AST 43 45 ALT 27 31 BILITOT 0.7 0.6 ALKPHOS 135* 125 LABALBU 4.0 3.5 PROT 7.6 6.6 PT/INR: No results for input(s): PROTIME, INR in the last 72 hours. CARDIAC ENZYMES: Recent Labs 03/06/20 1238 03/06/20 1904 03/07/20 0340 TROPONINI <0.012 <0.012 0.013 Procalcitonin: No results found for: PROCAL Glucose: No results for input(s): POCGLU in the last 72 hours. Objective: Vitals: BP 138/70 Pulse 81 Temp 97.9 F (36.6 C) (Temporal) Resp 18 Ht 5' 3 (1.6 m) Comment: per 08/2019 office visit Wt 200 lb (90.7 kg) Comment: per 08/2019 office visit SpO2 95% BMI 35.43 kg/m Pulse Ox: SpO2 Av.4 % Min: 90 % Max: 97 % Supplemental O2: O2 Flow Rate (L/min): 2 L/min General appearance: No apparent distress, appears stated age and cooperative with exam; Obese female, minimally responsive but alert; AAO x 2 today HEENT: Normal cephalic, atraumatic without obvious deformity. Pupils equal, round, and reactive to light. Extra ocular muscles intact. Conjunctivae/corneas clear. Neck: Supple, with full range of motion. No jugular venous distention. Trachea midline. No lymphadenopathy. Respiratory: Normal respiratory effort. Clear to auscultation, bilaterally without Rales/Wheezes/Rhonchi. Cardiovascular: Regular rate and rhythm with normal S1/S2 without murmurs, rubs or gallops. Abdomen: Soft, non-tender, non-distended with normal bowel sounds. No rebound or guarding. Musculoskeletal: No clubbing, cyanosis or edema bilaterally. Full range of motion without deformity. Skin: Skin color, texture, turgor normal. No rashes or lesions Retoucher: Unable to visualize cyst given body habitus and lack of speculum (OB-Retoucher on discharge recommended). Neurologic: Neurovascularly intact without any focal sensory/motor deficits. Cranial nerves: II-XIIintact, grossly non-focal. Assessment 1. Acute Toxic Metabolic Encephalopathy 2/2 Medications - Discussed results and case with Dr. Paulino; MRI/MRA without any CVA but chronic changes; UA unremarkable; Believed combination of Effexor, Buspar, and Aricept likely affected mentation; Plan to only continue Effexor when tolerating PO; Ceftr iaxone discontinued; Monitor blood cultures 2. Dementia - D/C Aricept per Neurology 3. Hypokalemia - Resolved 4. Asthma 5. Anxiety 6. Depression - Effexor 7. Hypothyroidism - Synthroid 8. Obesity due to excess calories 9. Questionable Labial Abscess - Unable to visualize; Outpatient Retoucher referral Diagnosis Date Anxiety Asthma Dementia (HCC) Depression History of blood transfusion Hypertension Hypothyroidism Plan - Monitor Mentation - PT/OT - Retoucher referral as outpatient -am labs, replace lytes prn -increase activity -DVT prophylaxis: [x] Lovenox [] Heparin [] SCDs [x] Encourage ambulation [] Already on Anticoagulation Advance Directive: DNR-CCA Discharge planning: TBD John Coe MD Division of Hospitalist Medicine Inpatient Medical Services PAGER: [phone] * Ronda Thomas RN - 03/06/2020 6:56 PM EDT NURSING BEDSIDE SWALLOW SCREENING NIH Inclusion Criteria Yes No [] [x] NIH score for 1a (LOC) is 0 [] [x] NIH score for 1c (LOC commands) is 0 [x] [] NIH score for 4 (facial palsy) is 0 or 1 [x] [] NIH score for 9 (best language) is 0, 1 or 2 [x] [] NIH score for 10 (dysarthria) is 0 or 1 [] [x] Patient is able to sit up in bed alone [] YES TO ALL OF THE ABOVE, proceed to protocol [x] NO, patient does not meet all of the above criteria, KEEP STRICT NPO UNTIL SEEN BY SPEECH THERAPY Protocol: If patient fails ANY part of ANY step, STOP FURTHER TESTING Give 1 tsp Lemon Ice Yes/Pass No/Fail [] [] Prompt swallow present [] [] NO cough = pass [] [] NO change in vocal quality = pass Give 1 tsp Applesauce Yes/Pass No/Fail [] [] Prompt swallow present [] [] NO cough = pass [] [] NO change in vocal quality = pass Give 1 tsp H20 via spoon Yes/Pass No/Fail [] [] Prompt swallow present [] [] NO cough = pass [] [] NO change in vocal quality = pass ALL STEPS ABOVE MUST BE CHECKED YES/PASS FOR DIET IF CHECKED NO/FAIL MUST REMAIN NPO NO STEPS ABOVE MAY BE LEFT UNCHECKED Bedside Swallow Result [] Passed the swallow screening AND has an NIH of 0 for dysarthria and 0 for best language. OK to begin Cardiac Diet with thin liquids or other prescribed diet. [] Passed the swallow screening AND has points on NIH for dysarthria and/or best language. OK to beginDysphagia Pureed Diet with Mildly Thick ([place]) liquids. Proceed to formal Speech Pathologist Swallow Evaluation. [x] FAILED the swallow screening. Remain STRICT NPO (do not give p.o. meds), proceed to formal Speech Pathologist Swallow Evaluation * Ronda Thomas RN - 03/06/2020 4:00 PM EDT Patient to unit by EMS. Patient unable to answer admission questions, only alert to self at the moment. documented in this encounter Assessments Diagnosis Delirium Other alteration of consciousness Urinary tract infection without hematuria, site unspecified Diagnosis Altered mental status, unspecified altered mental status type- Primary Shortness of breath Lower extremity edema Edema Abdominal pain, right lower quadrant Gallstones Calculus of gallbladder without mention of cholecystitis or obstruction Diagnosis Other specified hypothyroidism Health Concerns Infection Onset Date Last Indicated Resolved Time COVID-19 Rule-Out 06/05/2022 06/05/2022 06/05/2022 9:12 PM EDT Chief Complaint and Reason for Visit Chief Complaint [facility] Chief Complaint [facility] Chief Complaint [facility] Chief Complaint LABWORK [facility] Chief Complaint [facility] Chief Complaint [facility] Chief Complaint [facility] Chief Complaint [facility] WORK [facility] LABWORK Chief Complaint [facility] LABWORK LABWORK Chief Complaint Admit Date LABWORK August 30, 2024 5 :00am [facility] September 16 4:00am [facility] November 10 5:00am LABWORK November 17, 2024 5:00am [facility] November 22, 2024 5: 00am [facility] December 09, 2024 4 :00am Additional Source Comments INFORMATION SOURCE (unrecogn ized section and content) DATE CREATED AUTHOR 03/17/2018 [facility] DATE CREATED AUTHOR AUTHOR'S ORGANIZ ATION 03/09/2019 [facility] DATE CREATED AUTHOR AUTHOR'S ORGANIZ ATION 03/15/2019 [facility] DATE CREATED AUTHOR AUTHOR'S ORGANIZ ATION 08/31/2021 [facility] DATE CREATED AUTHOR AUTHOR'S ORGANIZ ATION 09/18/2021 [facility] DATE CREATED AUTHOR AUTHOR'S ORGANIZ ATION 11/21/2021 [facility] DATE CREATED AUTHOR AUTHOR'S ORGANIZ ATION 06/22/2022 [facility] DATE CREATED AUTHOR AUTHOR'S ORGANIZ ATION 06/25/2022 [facility] DATE CREATED AUTHOR AUTHOR'S ORGANIZ ATION 08/28/2022 [facility] DATE CREATED AUTHOR AUTHOR'S ORGANIZ ATION 02/18/2025 [facility] Reason for Visit (unrecogniz ed section and content) Reason Comments Altered Mental Status Reason Onset Date Comments Shortness of Breath 11/02/2020 Reason Comments Shortness of Breath Reason Onset Date Comments Psychiatric Problem 06/05/2022 Source Comments (unrecognize d section and content) In the event this informatio n is protected by the Federal Confidentiality of Alcohol and Drug Abuse Patient Records regulations: The Federal rules restrict any use of the information to criminally investigate or prosecute any alcohol or drug abuse patient.[facility] Teams (unrecognized sec tion and content) Team Status: Inactive Member Role Status Dates Saurabh MANJARREZ MD Attending Provider, Referring Pro vider Active Team Status: Inactive Member Role Status Dates Saurabh MANJARREZ MD Attending Provider Active Chemical Dependency Therapist Relationship Specialty Start Date End Date Cynthia Uribe MD [address] [place] [address] PCP - General Family Practice 06/05/22 Team Status: Inactive Member Role Status Dates Harpal Ramirez Attending Provider, Referring Provider Active Team Status: Inactive Member Role Status Dates Harpal Ramirez Attending Provider Active Team Status: Inactive Member Role Status Dates Saurabh Fernandez MD Attending Provider Active Team Status: Active Member Role Status Dates Saurabh Fernandez MD Attending Provider Active Team Status: Inactive Member Role Status Dates Harpal MANJARREZ Attending Provider Active Team Status: Inactive Member Role Status Dates Saurabh MANJARREZ MD Attending Provider Active S tart: August 30, 2024 End: August 30, 2024 Team Status: Active Member Role Status Dates Saurabh MANJARREZ MD Attending Provider Active S tart: September 16, 2024 Saurabh MANJARREZ MD Referring Provider Active S tart: September 16, 2024 Team Status: Active Member Role Status Dates Saurabh MANJARREZ MD Attending Provider Active S tart: November 10, 2024 Team Status: Inactive Member Role Status Dates Saurabh MANJARREZ MD Attending Provider Active S tart: November 17, 2024 End: November 17, 2024 Team Status: Active Member Role Status Dates Saurabh MANJARREZ MD Attending Provider Active S tart: November 22, 2024 Team Status: Active Member Role Status Dates Saurabh MANJARREZ MD Attending Provider Active S tart: December 09, 2024 Saurabh MANJARREZ MD Referring Provider Active S tart: December 09, 2024 Team Status: Inactive Member Role Status Dates Saurabh MANJARREZ MD Attending Provider Active S tart: December 09, 2024 End: December 09, 2024 Saurabh MANJARREZ MD Referring Provider Active S tart: December 09, 2024 End: December 09, 2024 Team Status: Inactive Member Role Status Dates Saurabh MANJARREZ MD Attending Provider Active S tart: November 22, 2024 End: November 22, 2024 Goals (unrecognized section and content) Goals may be documented in a n alternate sectionGoals may be documented in an alternate sectionGoals may be documented in an alternate sectionGoals may be documented in an alternate sectionGoals may be documented in an alternate sectionGoals may be documented in an alternate sectionGoals may be documented in an alternate sectionGoals may be documented in an alternate sectionGoals may be documented in an alternate sectionGoals may be documented in an alternate sectionGoals may be documented in an alternate sectionGoals may be documented in an alternate sectionGoals may be documented in an alternate sectionGoals may be documented in an alternate sectionGoals may be documented in an alternate sectionGoals may be documented in an alternate sectionGoals may be documented in an alternate section FOR RECORDS PERTAINING TO PATIENTS WHO ARE OR HAVE BEEN ENROLLED IN A CHEMICAL DEPENDENCY/SUBSTANCEABUSE PROGRAM, SOME INFORMATION MAY BE OMITTED. This clinical summary was aggregated from multiple sources. Caution should be exercised in using it in the provision of clinical care. This summary normalizes information from multiple sources, and as a consequence, information in this document may materially change the coding, format and clinical context of patient data. In addition, data may be omitted in some cases. CLINICAL DECISIONS SHOULD BE BASED ON THE PRIMARY CLINICAL RECORDS. [employer] provides no warranty or guarantee of the accuracy or completeness of information in this document.
[2025-03-03 09:06] LABS: Absolute Lymphocyte Count 3.19 X10^3/uL (0.83-4.51); Basophil# 0.07 X10^3/uL; Eosinophil# 0.27 X10^3/uL; Eosinophils% 3.8 % (0-5); Hemoglobin 14.7 g/dL (12.0-15.0); Lymphocyte # 3.19 X10^3/ul (0.83-4.51); Lymphocyte % 45.4 % (19-41); Mean Corp Hgb Conc 32.7 g/dL (32-36); Mean Corpuscular Hgb 31.7 pg (27.0-32.0); Mean Platelet Vol. 11.9 fl (6.2-12.0); Monocyte# 0.48 X10^3/uL; Monocyte% 6.8 % (0-10); NRBC Flagged by Analyzer 0 % (0-5); Neutrophil % 42.7 % (47-70); Platelet Count 204 K/mm3 (150-450); RBC Distribution Width CV 13.4 % (11.6-14.6); RBC Distribution Width SD 47.8 fl (35.1-43.9); Red Blood Count 4.64 M/mm3 (4.2-5.4)
[2025-03-03 09:28] LABS: Cholesterol 192 mg/dL (<=200); High Density Lipoprotein 42 mg/dL; Low Density Lipoprotein Calc. 119 mg/dL; Triglycerides 155 mg/dL; Very Low Density Lipoprotein 31 mg/dL (5-40); cholesterol:hdl ratio screen 4.62
[2025-03-03 09:29] LABS: ALB/GLOB Ratio 1.1 RATIO (0.9-2.4); AST(SGOT) 26 U/L (<=31); Alanine Aminotransfer ALT/SGPT 11 U/L (<=34); Albumin, Serum 3.3 g/dL (3.4-4.8); Alkaline Phosphatase 57 U/L (35-104); Anion Gap 10 (5-15); BUN 20 mg/dL (4-19); BUN/Creat Ratio 24.8 RATIO (10-20); Carbon Dioxide 25.7 mmol/L (21.0-32.0); Chloride 106 mmol/L (98-108); Creatinine, Serum 0.82 mg/dL (0.70-1.20); EST Glomerular Filtration Rate 72 (>60); Glucose 82 mg/dL (70-99); Potassium 4.4 mmol/L (3.3-5.1); Protein, Total 6.3 g/dL (5.9-8.4); Sodium Level 141 mmol/L (133-145); Total Bilirubin 0.37 mg/dL (0.00-1.30)
== END ==
LOC: OLS.ACH 05:00
PROVIDERS: Visit Provider Internal Medicine
DX: I10 Essential (primary) hypertension (principal); E03.9 Hypothyroidism, unspecified; E78.00 Pure hypercholesterolemia, unspecified
CPT/HCPCS: 36415; 80053; 80061; 84443; 85025

== ENCOUNTER → 2025-04-08 15:16 | Outpatient (REF) | payer MEDICARE, SELFPAY | LOC: OLS.ACH 15:16 | PROVIDERS: Visit Provider Internal Medicine | DX: R05.9 Cough, unspecified (principal) | CPT/HCPCS: 87633 ==

== ENCOUNTER → 2025-05-09 05:00 | Outpatient (REF) | payer MEDICARE, SELFPAY ==
--- OUTSIDE RECORDS SUMMARY | 2025-05-09 04:14 | XMS RPT_ITS | CCD ---
Author Organization [facility] Care Team Providers Care Clinical Transformation Specialist Name Role Phone Barbara, Scott Unavailable Unavailable Isbell, Keena Unavailable Unavailable Unknown, Referring Provider Unavailable Unav ailable Cynthia Uribe Unavailable Unavailable Cynthia Uribe Primary Care Provider [phone] Cynthia Uribe Primary Care Provider Selin MARIANO, Cynthia Primary Care Provider [phone] Unknown, Referring Provider Unavailable Unav ailable Unavailable Unavailable Selin MARIANO, Cynthia Primary Care Provider [phone] Selin MARIANO, Cynthia Primary Care Provider CYNTHIA URIBE Primary Care Unavailable JOHN PENNY [...] Deperro OLS, Saurabh Attending Unavailable Deperro OLS, Saruabh Attending Unavailable Deperro OLS, Saurabh Attending Unavailable [...] hours as needed for Pain 0 Active [id number] actuat albuterol 0.09 mg/actuat metered dose [...] MISC (5 sources) Start: 08-31-2019 Handicap Placard [facility] Indications: Mild intermittent asthma without complication by [...] reach optimal image enhancement. polyethylene glycol [phone] mg powder for oral solution (1 source) [...] 10 mL, Intravenous, PRN, Line Care, Per Manager Search Request, Starting Fri03/06/20 at 1709, For 72 hours May use order for Line Care after every IV line use and Agitated Saline Bubble Study. Administration for Bubble Study per coin purse framer request for only. Remove 1 mL 0.9% [...] Start: 02-21-2021 take 1 capsule by mo [facility] every week vitamin D (ERGOCALCIFEROL) 1.25 MG (68068 UT) CAPS capsule Indications: Vitamin D deficiency TAKE 1 CAPSULE BY MOUTH ONE TIME PER WEEK 12 capsule 0 02/21/2021 Active Start: 06-01-2020 take 1 capsule by mo [facility] every week vitamin D (ERGOCALCIFEROL) 1.25 MG (39422 UT) CAPS capsule Indications: Vitamin D deficiency TAKE 1 CAPSULE BY MOUTH ONE TIME PER WEEK 12 capsule 1 06/01/2020 Active Start: 02-01-2020 take 86319 [IU] by m outh every week 50,000 Units, Oral, WEEKLY, First dose on Fri03/07/20 at 0900 Start: 03-09-2017 take 1 capsule by mo [facility] every week vitamin D (ERGOCALCIFEROL) 53568 units capsule Take 1 capsule by mouth [...] unspecified; Translations: [Pure hypercholesterolemia , unspecified] Onset: 12-23-2024 Chronic Essential hypertension (9 sources) Essential hypertension; Translations: [Essential (primary) hypertension] Onset: 11-28-2016 11-28-2016 Chronic Mood disorders (8 sources) Depressive disorder; Translations: [Recurrent depression] Onset: 06-12-2017 06-12-2017 Chronic Nutritional deficiencies (9 sources) Vitamin D deficiency; Translations: [Vitamin D [...] a substance or known physiological condition] Onset: 12-23-2024 Chronic Thyroid disorders (5 sources) Hypothyroidism; Translations: [Other specified hypothyroidism] Onset: 12-23-2024 Chronic Unclassified (1 source) Cough, unspecified; Translations: [Cough, unspecified] Onset: 2025 Urinary tract infections (2 sources) Urinary tract infectious disease; Translations: [Acute cystitis without hematuria] Onset: 06-05-2022 Episodic Past or Other Problems Problem Classification Problem Date Documented Da te Episodic/Chronic Fracture of upper limb (6 sources) Closed fracture of lower end of radius AND ulna; Translations: [Unspecified fracture of the lower end of left radius, initial encounter for closed fracture] Onset: 09-08-2018 09-08-2018 Episodic Influenza (1 source) Influenza due to other identified influenza virus with other respiratory manifestations; Translations: [Influenza due to other identified influenza virus with other respiratory manifestations] Onset: 12-23-2024 Episodic Residual codes; unclassified (5 sources) Delirium; Translations: [Disorientation, unspecified] Onset: 03-06-2020 03-06-2020 Episodic Results Test Name Value Interpretation Reference Range Facility RESPIRATORY PANEL MOLECULARo n 04-08-2025 RP PANEL ADENOVIRUS Not Detected INFLUENZA A Not Detected INFLUENZA A (SUBTYPE H1) Not Detected INFLUENZA A (SUBTYPE H3) Not Detected INFLUENZA B Not Detected HUMAN METAPHNEUMO Not Detected PARAINFLUENZA 1 Not Detected PARAINFLUENZA 2 Not Detected PARAINFLUENZA 3 Not Detected PARAINFLUENZA 4 Not Detected RHINOVIRUS Not Detected RSV A Not Detected RSV B Not Detected Normal [facility] Comment on above: Performed By: #### M 100.638 #### [facility] [address] [place], [address] CBC W/Diff, Automatedon 02-20 Absolute Lymph 3.19 X10 3/uL Normal 0.83-4.51 [facility] Comment on above: Order Comment: 105.1 Performed By: #### M 100.638 #### [facility] [address] [place], [address] Absolute Neut 3.0 X10 3/uL Normal 2.0-7.7 [facility] Comment on above: Order Comment: 105.1 Performed By: #### M 100.638 #### [facility] [address] [place], [address] Basophils/100 WBC (Bld) 1.0 % Normal 0-1 [facility] Comment on above: Order Comment: 105.1 Performed By: #### M 100.638 #### [facility] [address] [place], [address] Eosinophils/100 WBC (Bld) 3.8 % Normal 0-5 [facility] Comment on above: Order Comment: 105.1 Performed By: #### M 100.638 #### [facility] [address] [place], [address] Erythrocyte distribution width (RBC) [Ratio] 13.4 % Normal 11.6-14.6 [facility] Comment on above: Order Comment: 105.1 Performed By: #### M 100.638 #### [facility] [address] [place], [address] Hematocrit (Bld) [Volume fraction] 45.0 % Normal 37-47 [facility] Comment on above: Order Comment: 105.1 Performed By: #### M 100.638 #### [facility] [address] [place], [address] Hemoglobin (Bld) [Mass/Vol] 14.7 g/dL Normal 12.0-15.0 [facility] Comment on above: Order Comment: 105.1 Performed By: #### M 100.638 #### [facility] [address] [place], [address] IG% 0.300 Normal 0.0-0.9 [facility] Comment on above: Order Comment: 105.1 Result Comment: IG% - Immature Granulocytes (promyelocytes, myelocytes and metamyelocytes) > 1% indicates that a LEFT SHIFT is Present. Performed By: #### M 100.638 #### [facility] [address] [place], [address] Lymphocytes/100 WBC (Bld) 45.4 % High 19-41 [facility] Comment on above: Order Comment: 105.1 Performed By: #### M 100.638 #### [facility] [address] [place], [address] MCH (RBC) [Entitic mass] 31.7 pg Normal 27.0-32.0 [facility] Comment on above: Order Comment: 105.1 Performed By: #### M 100.638 #### [facility] [address] [place], [address] MCHC (RBC) [Mass/Vol] 32.7 g/dL Normal 32-36 [facility] Comment on above: Order Comment: 105.1 Performed By: #### M 100.638 #### [facility] [address] [place], [address] MCV (RBC) [Entitic vol] 97.0 fL Normal 81-99 [facility] Comment on above: Order Comment: 105.1 Performed By: #### M 100.638 #### [facility] [address] [place], [address] Monocytes/100 WBC (Bld) 6.8 % Normal 0-10 [facility] Comment on above: Order Comment: 105.1 Performed By: #### M 100.638 #### [facility] [address] [place], [address] Neutrophils/100 WBC (Bld) 42.7 % Low 47-70 [facility] Comment on above: Order Comment: 105.1 Performed By: #### M 100.638 #### [facility] [address] [place], [address] Nucleated RBC (Bld) [#/Vol] 0 10*3/uL Normal 0-5 [facility] Comment on above: Order Comment: 105.1 Performed By: #### M 100.638 #### [facility] [address] [place], [address] Platelet mean volume (Bld) [Entitic vol] 11.9 fL Normal 6.2-12.0 [facility] Comment on above: Order Comment: 105.1 Performed By: #### M 100.638 #### [facility] [address] [place], [address] Platelets (Bld) [#/Vol] 204 10*3/uL Normal 150-450 [facility] Comment on above: Order Comment: 105.1 Performed By: #### M 100.638 #### [facility] [address] [place], [address] RBC (Bld) [#/Vol] 4.64 10*6/uL Normal 4.2-5.4 [facility] Comment on above: Order Comment: 105.1 Performed By: #### M 100.638 #### [facility] [address] [place], [address] RDW SD 47.8 fl High 35.1-43.9 [facility] Comment on above: Order Comment: 105.1 Performed By: #### M 100.638 #### [facility] [address] [place], [address] WBC (Bld) [#/Vol] 7.0 10*3/uL Normal 4.4-11.0 [facility] Comment on above: Order Comment: 105.1 Performed By: #### M 100.638 #### [facility] [address] [place], [address] Comprehensive Metabolic Prof [facility] 03-03-2025 Albumin [Mass/Vol] 3.3 g/dL Low 3.4-4.8 [facility] Comment on above: Order Comment: 105.1 Performed By: #### M 100.638 #### [facility] [address] [place], [address] Albumin/Globulin [Mass ratio] 1.1 {ratio} Normal 0.9-2.4 [facility] Comment on above: Order Comment: 105.1 Performed By: #### M 100.638 #### [facility] [address] [place], [address] ALK PHOS 57 U/L Normal 35-104 [facility] Comment on above: Order Comment: 105.1 Performed By: #### M 100.638 #### [facility] [address] [place], [address] ALT [Catalytic activity/Vol] 11 U/L Normal <=34 [facility] Comment on above: Order Comment: 105.1 Performed By: #### M 100.638 #### [facility] [address] [place], [address] AST [Catalytic activity/Vol] 26 U/L Normal <=31 [facility] Comment on above: Order Comment: 105.1 Result Comment: Hemo lysis present, Results??could be affected. ?? Performed By: #### M 100.638 #### [facility] [address] [place], [address] Bilirubin [Mass/Vol] 0.37 mg/dL Normal 0.00-1.30 [facility] Comment on above: Order Comment: 105.1 Performed By: #### M 100.638 #### [facility] [address] [place], [address] BUN/CRE 24.8 RATIO High 10-20 [facility] Comment on above: Order Comment: 105.1 Performed By: #### M 100.638 #### [facility] [address] [place], [address] Calcium [Mass/Vol] 9.0 mg/dL Normal 7.6-11.0 [facility] Comment on above: Order Comment: 105.1 Performed By: #### M 100.638 #### [facility] [address] [place], [address] Chloride [Moles/Vol] 106 mmol/L Normal 98-108 [facility] Comment on above: Order Comment: 105.1 Performed By: #### M 100.638 #### [facility] [address] [place], [address] CO2 [Moles/Vol] 25.7 mmol/L Normal 21.0-32.0 [facility] Comment on above: Order Comment: 105.1 Performed By: #### M 100.638 #### [facility] [address] [place], [address] Creatinine [Mass/Vol] 0.82 mg/dL Normal 0.70-1.20 [facility] Comment on above: Order Comment: 105.1 Performed By: #### M 100.638 #### [facility] [address] [place], [address] GAP 10 Normal 5-15 [facility] Comment on above: Order Comment: 105.1 Performed By: #### M 100.638 #### [facility] [address] [place], [address] GFR/1.73 sq M.predicted among non-blacks MDRD (S/P/Bld) [Vol rate/Area] 72 mL/min/{1.73_m2} Normal >60 [facility] Comment on above: Order Comment: 105.1 Result Comment: mL/m in/1.73m2 CKD-EPI Creatinine Equation (2020) Performed By: #### M 100.638 #### [facility] [address] [place], [address] Globulin (S) [Mass/Vol] 3.0 g/dL Normal 2.2-4.2 [facility] Comment on above: Order Comment: 105.1 Performed By: #### M 100.638 #### [facility] [address] [place], [address] Glucose [Mass/Vol] 82 mg/dL Normal 70-99 [facility] Comment on above: Order Comment: 105.1 Performed By: #### M 100.638 #### [facility] [address] [place], [address] Potassium [Moles/Vol] 4.4 mmol/L Normal 3.3-5.1 [facility] Comment on above: Order Comment: 105.1 Result Comment: Hemo lysis present, Results??could be affected. ?? Performed By: #### M 100.638 #### [facility] [address] [place], [address] Sodium [Moles/Vol] 141 mmol/L Normal 133-145 [facility] Comment on above: Order Comment: 105.1 Performed By: #### M 100.638 #### [facility] [address] [place], [address] T PROT 6.3 g/dL Normal 5.9-8.4 [facility] Comment on above: Order Comment: 105.1 Performed By: #### M 100.638 #### [facility] [address] [place], [address] Urea nitrogen [Mass/Vol] 20 mg/dL High 4-19 [facility] Comment on above: Order Comment: 105.1 Performed By: #### M 100.638 #### [facility] [address] [place], [address] Lipid Profileon 03-03-2025 CHOL:HDL 4.62 Normal [facility] Comment on above: Order Comment: 105.1 Performed By: #### M 100.638 #### [facility] [address] [place], [address] Cholesterol [Mass/Vol] 192 mg/dL Normal <=200 [facility] Comment on above: Order Comment: 105.1 Result Comment: Chol esterol level, Desirable <200 mg/dL Borderline high cholesterol 200-239 mg/dL High cholesterol >=240 mg/dL Recommendations of the NCEP Adult Treatment Panel for the following risk-cutoff thresholds for the [place] population. Performed By: #### M 100.638 #### [facility] [address] [place], [address] Cholesterol in HDL [Mass/Vol] 42 mg/dL Normal [facility] Comment on above: Order Comment: 105.1 Result Comment: Sherie onal Cholesterol Education Program (NCEP) guidelines: <40 mg/dL: Low HDL-cholesterol (major risk factor for CHD) >= 60 mg/dL: High HDL-cholesterol (negative risk factor for CHD) HDL-cholesterol is affected by a number of factors, e.g. smoking, exercise, hormones, sex and age. Performed By: #### M 100.638 #### [facility] [address] [place], [address] Cholesterol in LDL [Mass/Vol] 119 mg/dL Normal [facility] Comment on above: Order Comment: 105.1 Result Comment: Bord dolxzv=011-751 mg/dL Higher Svbp=418 mg/dL or greater Performed By: #### M 100.638 #### [facility] [address] [place], [address] Cholesterol in VLDL [Mass/Vol] 31 mg/dL Normal 5-40 [facility] Comment on above: Order Comment: 105.1 Performed By: #### M 100.638 #### [facility] [address] [place], [address] Triglyceride [Mass/Vol] 155 mg/dL Normal [facility] Comment on above: Order Comment: 105.1 Result Comment: The drugs N-Acetylcysteine and Metamizole may falsely depress this assay. Normal range: <150 mg/dL Borderline High: 150-199 mg/dL High: 200-499 mg/dL Very High: >500 mg/dL Performed By: #### M 100.638 #### [facility] [address] [place], [address] Thyroid Stim Hormone (TSH)on 03-03-2025 TSH 1.250 uIU/mL Normal 0.300-4.200 [facility] Comment on above: Order Comment: 105.1 Performed By: #### M 100.638 #### [facility] [address] [place], [address] Valproic Acid (Depakene) Lev ladonna 02-16-2025 VALPROIC ACID 27 ug/mL Low 50-100 [facility] Comment on above: Order Comment: 105-1 Result Comment: Valp roic Acid concentrations >100 ug/mL are potentially toxic. Performed By: #### L 506.1001, L501.8100 #### [facility] [address] [place], [place], [address] Vitamin D,25 Hydroxyon 02-16 Vitamin D 25-OH 36.9 ng/mL Normal 30-100 [facility] Comment on above: Order Comment: 105-1 Result Comment: Kerline min D Status Deficiency: <20 ng/mL (50nmol/L) Insufficiency: 20-30 ng/mL (50-75 nmol/L) Sufficiency: 30-100 ng/mL (75-250 nmol/L) Toxicity: >100 ng/mL (>250 nmol/L) Performed By: #### L 506.1001, L501.8100 #### [facility] [address] [place], [place], [id number] Absolute neutrophil countOrd ered By: Saurabh Fernandez on 12-09-2024 Neutrophils (Bld) [#/Vol] 3.7 10*3/uL 2.0-7.7 [facility] Anion gap in Serum or Plasma Ordered By: Saurabh Fernandez on 12-09-2024 Anion gap [Moles/Vol] 8 mmol/L - [facility] BUN/creatinine ratioOrdered By: Saurabh Fernandez on 12-09-2024 Urea nitrogen/Creatinine [Mass ratio] 21.6 mg/mg High - [facility] Basophil percentageOrdered B y: Saurabh Fernandez on 12-09-2024 Basophils/100 WBC (Bld) 0.9 % 0-1 [facility] Bilirubin, totalOrdered By: Saurabh Fernandez on 12-09-2024 Bilirubin [Mass/Vol] 0.48 mg/dL 0.00-1.30 [facility] CBC W/Diff, Automatedon 11-21 Absolute Lymph 3.12 X10 3/uL Normal 0.83-4.51 [facility] Comment on above: Order Comment: 105.1 Performed By: #### M 100.638 #### [facility] [address] [place], [address] Absolute Neut 3.7 X10 3/uL Normal 2.0-7.7 [facility] Comment on above: Order Comment: 105.1 Performed By: #### M 100.638 #### [facility] [address] [place], [address] Basophils/100 WBC (Bld) 0.9 % Normal 0-1 [facility] Comment on above: Order Comment: 105.1 Performed By: #### M 100.638 #### [facility] [address] [place], [address] Eosinophils/100 WBC (Bld) 4.1 % Normal 0-5 [facility] Comment on above: Order Comment: 105.1 Performed By: #### M 100.638 #### [facility] [address] [place], [address] Erythrocyte distribution width (RBC) [Ratio] 14.9 % High 11.6-14.6 [facility] Comment on above: Order Comment: 105.1 Performed By: #### M 100.638 #### [facility] [address] [place], [address] Hematocrit (Bld) [Volume fraction] 40.3 % Normal 37-47 [facility] Comment on above: Order Comment: 105.1 Performed By: #### M 100.638 #### [facility] [address] [place], [address] Hemoglobin (Bld) [Mass/Vol] 13.1 g/dL Normal 12.0-15.0 [facility] Comment on above: Order Comment: 105.1 Performed By: #### M 100.638 #### [facility] [address] [place], [address] IG% 0.400 Normal 0.0-0.9 [facility] Comment on above: Order Comment: 105.1 Result Comment: IG% - Immature Granulocytes (promyelocytes, myelocytes and metamyelocytes) > 1% indicates that a LEFT SHIFT is Present. Performed By: #### M 100.638 #### [facility] [address] [place], [address] Lymphocytes/100 WBC (Bld) 39.9 % Normal 19-41 [facility] Comment on above: Order Comment: 105.1 Performed By: #### M 100.638 #### [facility] [address] [place], [address] MCH (RBC) [Entitic mass] 32.1 pg High 27.0-32.0 [facility] Comment on above: Order Comment: 105.1 Performed By: #### M 100.638 #### [facility] [address] [place], [address] MCHC (RBC) [Mass/Vol] 32.5 g/dL Normal 32-36 [facility] Comment on above: Order Comment: 105.1 Performed By: #### M 100.638 #### [facility] [address] [place], [address] MCV (RBC) [Entitic vol] 98.8 fL Normal 81-99 [facility] Comment on above: Order Comment: 105.1 Performed By: #### M 100.638 #### [facility] [address] [place], [address] Monocytes/100 WBC (Bld) 7.0 % Normal 0-10 [facility] Comment on above: Order Comment: 105.1 Performed By: #### M 100.638 #### [facility] [address] [place], [address] Neutrophils/100 WBC (Bld) 47.7 % Normal 47-70 [facility] Comment on above: Order Comment: 105.1 Performed By: #### M 100.638 #### [facility] [address] [place], [address] Nucleated RBC (Bld) [#/Vol] 0 10*3/uL Normal 0-5 [facility] Comment on above: Order Comment: 105.1 Performed By: #### M 100.638 #### [facility] [address] [place], [address] Platelet mean volume (Bld) [Entitic vol] 11.4 fL Normal 6.2-12.0 [facility] Comment on above: Order Comment: 105.1 Performed By: #### M 100.638 #### [facility] [address] [place], [address] Platelets (Bld) [#/Vol] 160 10*3/uL Normal 150-450 [facility] Comment on above: Order Comment: 105.1 Performed By: #### M 100.638 #### [facility] [address] [place], [address] RBC (Bld) [#/Vol] 4.08 10*6/uL Low 4.2-5.4 [facility] Comment on above: Order Comment: 105.1 Performed By: #### M 100.638 #### [facility] [address] [place], [address] RDW SD 54.3 fl High 35.1-43.9 [facility] Comment on above: Order Comment: 105.1 Performed By: #### M 100.638 #### [facility] Laboratory [address] [place], [address] WBC (Bld) [#/Vol] 7.8 10*3/uL Normal 4.4-11.0 [facility] Comment on above: Order Comment: 105.1 Performed By: #### M 100.638 #### [facility] Laboratory [address] [place], [address] Calculated very low density lipoprotein (VLDL) cholesterol measurementOrdered By: Saurabh Fernandez on 12-09-2024 VLDL Cholesterol 36 mg/dL 5-40 [facility] Carbon dioxide, total [Moles /volume] in Central venous bloodOrdered By: Saurabh Fernandez on 12-09-2024 CO2 [Moles/Vol] 28.8 mmol/L 21.0-32.0 [facility] Chloride assayOrdered By: Nieto on 12-09-2024 Chloride [Moles/Vol] 106 mmol/L 98-108 [facility] Comprehensive Metabolic Prof ilon 12-09-2024 Albumin [Mass/Vol] 3.3 g/dL Low 3.4-4.8 [facility] Comment on above: Order Comment: 105.1 Performed By: #### M 100.638 #### [facility] [address] [place], [place], [id number] (157 Albumin/Globulin [Mass ratio] 1.1 {ratio} Normal 0.9-2.4 [facility] Comment on above: Order Comment: 105.1 Performed By: #### M 100.638 #### [facility] [address] [place], [address] ALK PHOS 62 U/L Normal 35-104 [facility] Comment on above: Order Comment: 105.1 Performed By: #### M 100.638 #### [facility] [address] [place], [address] ALT [Catalytic activity/Vol] 11 U/L Normal <=34 [facility] Comment on above: Order Comment: 105.1 Performed By: #### M 100.638 #### [facility] [address] [place], [address] AST [Catalytic activity/Vol] 17 U/L Normal <=31 [facility] Comment on above: Order Comment: 105.1 Performed By: #### M 100.638 #### [facility] Laboratory [address] [place], [address] Bilirubin [Mass/Vol] 0.48 mg/dL Normal 0.00-1.30 [facility] Comment on above: Order Comment: 105.1 Performed By: #### M 100.638 #### [facility] [address] [place], [address] BUN/CRE 21.6 RATIO High 10-20 [facility] Comment on above: Order Comment: 105.1 Performed By: #### M 100.638 #### [facility] [address] [place], [address] Calcium [Mass/Vol] 8.9 mg/dL Normal 7.6-11.0 [facility] Comment on above: Order Comment: 105.1 Performed By: #### M 100.638 #### [facility] [address] [place], [address] Chloride [Moles/Vol] 106 mmol/L Normal 98-108 [facility] Comment on above: Order Comment: 105.1 Performed By: #### M 100.638 #### [facility] [address] [place], [address] CO2 [Moles/Vol] 28.8 mmol/L Normal 21.0-32.0 [facility] Comment on above: Order Comment: 105.1 Performed By: #### M 100.638 #### [facility] [address] [place], [address] Creatinine [Mass/Vol] 0.73 mg/dL Normal 0.70-1.20 [facility] Comment on above: Order Comment: 105.1 Performed By: #### M 100.638 #### [facility] [address] [place], [address] GAP 8 Normal 5-15 [facility] Comment on above: Order Comment: 105.1 Performed By: #### M 100.638 #### [facility] [address] [place], [address] GFR/1.73 sq M.predicted among non-blacks MDRD (S/P/Bld) [Vol rate/Area] 82 mL/min/{1.73_m2} Normal >60 [facility] Comment on above: Order Comment: 105.1 Result Comment: mL/m in/1.73m2 CKD-EPI Creatinine Equation (2020) Performed By: #### M 100.638 #### [facility] [address] [place], [address] Globulin (S) [Mass/Vol] 3.0 g/dL Normal 2.2-4.2 [facility] Comment on above: Order Comment: 105.1 Performed By: #### M 100.638 #### [facility] [address] [place], [address] Glucose [Mass/Vol] 85 mg/dL Normal 70-99 [facility] Comment on above: Order Comment: 105.1 Performed By: #### M 100.638 #### [facility] [address] [place], [address] Potassium [Moles/Vol] 4.4 mmol/L Normal 3.3-5.1 [facility] Comment on above: Order Comment: 105.1 Performed By: #### M 100.638 #### [facility] [address] [place], [address] Sodium [Moles/Vol] 142 mmol/L Normal 133-145 [facility] Comment on above: Order Comment: 105.1 Performed By: #### M 100.638 #### [facility] [address] [place], [address] T PROT 6.3 g/dL Normal 5.9-8.4 [facility] Comment on above: Order Comment: 105.1 Performed By: #### M 100.638 #### [facility] [address] [place], [place], [id number] Urea nitrogen [Mass/Vol] 16 mg/dL Normal 4-19 [facility] Comment on above: Order Comment: 105.1 Performed By: #### M [id number] #### [facility] [address] [place], [place], [id number] Eosinophil percentageOrdered By: Saurabh Fernandez on 12-09-2024 Eosinophils/100 WBC (Bld) 4.1 % 0-5 [facility] Erythrocyte distribution wid th (RBC) [Ratio]Ordered By: Saurabh Fernandez on 12-09-2024 Erythrocyte distribution width (RBC) [Entitic vol] 54.3 fL High 35.1-43.9 [facility] Erythrocyte distribution wid th ratioOrdered By: Saurabh Fernandez on 12-09-2024 Erythrocyte distribution width (RBC) [Ratio] 14.9 % High 11.6-14.6 [facility] GFR/1.73 sq M.predicted layne g non-blacks MDRD (S/P/Bld) [Vol rate/Area]Ordered By: Saurabh Fernandez on 12-09-2024 Estimated GFR (MDRD) Non-Af Amer 82 >60 [facility] Comment on above: mL/min/1.73m2 CKD-EP I Creatinine Equation (2020) Hematocrit Auto (Bld) [Volum e fraction]Ordered By: Saurabh Fernandez on 12-09-2024 Hematocrit (Bld) [Volume fraction] 40.3 % 37-47 [facility] Hemoglobin measurementOrdere d By: Saurabh Fernandez on 12-09-2024 Hemoglobin (Bld) [Mass/Vol] 13.1 g/dL 12.0-15.0 [facility] Immature granulocytes/100 WB C Auto (Bld)Ordered By: Saurabh Fernandez on 12-09-2024 Immature granulocytes/100 WBC (Bld) 0.400 % 0.0-0.9 [facility] Comment on above: IG% - Immature Granu locytes (promyelocytes, myelocytes and metamyelocytes) > 1% indicates that a LEFT SHIFT is Present. LDL calc ser/plasOrdered By: Saurabh Fernandez on 12-09-2024 LDL Cholesterol, Calculated 120 mg/dL [facility] Comment on above: Nzzdswjtyn=966-326 m g/dL & Higher Szpl=641 mg/dL or greater Laboratory - Chemistry and C hemistry - challengeOrdered By: Saurabh Fernandez on 12-09-2024 AST [Catalytic activity/Vol] 17 U/L <32 [facility] Lipid Profileon 12-09-2024 CHOL:HDL 4.34 Normal [facility] Comment on above: Order Comment: 105.1 Performed By: #### M 100.638 #### [facility] Laboratory [address] [place], [place], [id number] (160) Cholesterol [Mass/Vol] 203 mg/dL High <=200 [facility] Comment on above: Order Comment: 105.1 Result Comment: Chol esterol level, Desirable <200 mg/dL Borderline high cholesterol 200-239 mg/dL High cholesterol >=240 mg/dL Recommendations of the NCEP Adult Treatment Panel for the following risk-cutoff thresholds for the [place] population. Performed By: #### M 100.638 #### [facility] Laboratory [address] [place], [place], [id number] (723) Cholesterol in HDL [Mass/Vol] 47 mg/dL Normal [facility] Comment on above: Order Comment: 105.1 Result Comment: Sherie onal Cholesterol Education Program (NCEP) guidelines: <40 mg/dL: Low HDL-cholesterol (major risk factor for CHD) >= 60 mg/dL: High HDL-cholesterol (negative risk factor for CHD) HDL-cholesterol is affected by a number of factors, e.g. smoking, exercise, hormones, sex and age. Performed By: #### M 100.638 #### [facility] [address] [place], [address] (405) Cholesterol in LDL [Mass/Vol] 120 mg/dL Normal [facility] Comment on above: Order Comment: 105.1 Result Comment: Bord rmtwvn=760-331 mg/dL Higher Etwu=757 mg/dL or greater Performed By: #### M 100.638 #### [facility] [address] [place], [place], [phone] (042) Cholesterol in VLDL [Mass/Vol] 36 mg/dL Normal 5-40 [facility] Comment on above: Order Comment: 105.1 Performed By: #### M 100.638 #### [facility] [address] [place], [address] Triglyceride [Mass/Vol] 180 mg/dL Normal [facility] Comment on above: Order Comment: 105.1 Result Comment: The drugs N-Acetylcysteine and Metamizole may falsely depress this assay. Normal range: <150 mg/dL Borderline High: 150-199 mg/dL High: 200-499 mg/dL Very High: >500 mg/dL Performed By: #### M 100.638 #### [facility] [address] [place], [address] Lymphocytes Auto (Unsp spec) [#/Vol]Ordered By: Saurabh Fernandez on 12-09-2024 Lymphocytes (Bld) [#/Vol] 3.12 10*3/uL 0.83-4.51 [facility] Lymphocytes/100 WBC Auto (Un sp spec)Ordered By: Saurabh Fernandez on 12-09-2024 Lymphocytes/100 WBC (Bld) 39.9 % 19-41 [facility] MCV (mean corpuscular volume ) determinationOrdered By: Saurabh Fernandez on 12-09-2024 MCV (RBC) [Entitic vol] 98.8 fL 81-99 [facility] Mean corpuscular hemoglobin (MCH) determinationOrdered By: Saurabh Fernandez on 12-09-2024 MCH (RBC) [Entitic mass] 32.1 pg High 27.0-32.0 [facility] Mean corpuscular hemoglobin concentration (MCHC) determinationOrdered By: Saurabh Fernandez on 12-09-2024 MCHC (RBC) [Mass/Vol] 32.5 g/dL 32-36 [facility] Mean platelet volume determi nationOrdered By: Saurabh Fernandez on 12-09-2024 Platelet mean volume (Bld) [Entitic vol] 11.4 fL 6.2-12.0 [facility] Monocyte percentageOrdered B y: Saurabh Fernandez on 12-09-2024 Monocytes/100 WBC (Bld) 7.0 % 0-10 [facility] Neutrophil percentageOrdered By: Saurabh Fernandez on 12-09-2024 Neutrophils/100 WBC (Bld) 47.7 % 47-70 [facility] Nucleated red blood cell per centageOrdered By: Saurabh Fernandez on 12-09-2024 Nucleated RBC/100 WBC (Bld) [Ratio] 0 % 0-5 [facility] Platelet countOrdered By: Nieto on 12-09-2024 Platelets (Bld) [#/Vol] 160 10*3/uL 150-450 [facility] Potassium (Unsp spec) [Mass/ Vol]Ordered By: Saurabh Fernandez on 12-09-2024 Potassium [Moles/Vol] 4.4 mmol/L 3.3-5.1 [facility] RBC Auto (Bld) [#/Vol]Ordere d By: Saurabh Fernandez on 12-09-2024 RBC (Bld) [#/Vol] 4.08 10*6/uL Low 4.2-5.4 [facility] Screening total cholesterol/ high density lipoprotein (HDL) cholesterol ratioOrdered By: Saurabh Fernandez on 12-09-2024 Cholesterol.total/Chol esterol in HDL [Mass ratio] 4.34 {ratio} [facility] Serum creatinine measurement (mass/volume)Ordered By: Saurabh Fernandez on 12-09-2024 Creatinine [Mass/Vol] 0.73 mg/dL 0.70-1.20 [facility] Serum globulin measurementOr dered By: Saurabh Fernandez on 12-09-2024 Globulin (S) [Mass/Vol] 3.0 g/dL 2.2-4.2 [facility] Serum glucose measurement (m ass/volume)Ordered By: Saurabh Fernandez on 12-09-2024 Glucose [Mass/Vol] 85 mg/dL 70-99 [facility] Serum or plasma alanine macedo otransferase (ALT) measurementOrdered By: Saurabh Fernandez on 12-09-2024 ALT [Catalytic activity/Vol] 11 U/L <35 [facility] Serum or plasma albumin tyrese urement (mass/volume)Ordered By: Saurabh Fernandez on 12-09-2024 Albumin [Mass/Vol] 3.3 g/dL Low 3.4-4.8 [facility] Serum or plasma albumin/glob ulin mass ratioOrdered By: Saurabh Fernandez on 12-09-2024 Albumin/Globulin [Mass ratio] 1.1 {ratio} 0.9-2.4 [facility] Serum or plasma alkaline elia sphatase measurementOrdered By: Saurabh Fernandez on 12-09-2024 ALP [Catalytic activity/Vol] 62 U/L 35-104 [facility] Serum or plasma calcium tyrese urement (mass/volume)Ordered By: Saruabh Fernandez on 12-09-2024 Calcium [Mass/Vol] 8.9 mg/dL 7.6-11.0 [facility] Serum or plasma cholesterol in HDL measurement (mass/volume)Ordered By: Saurabh Fernandez on 12-09-2024 Cholesterol in HDL [Mass/Vol] 47 mg/dL >40 [facility] Comment on above: National Cholesterol Education Program (NCEP) guidelines:<40 mg/dL: Low HDL-cholesterol (major risk factor for CHD)>= 60 mg/dL: High HDL-cholesterol (negative risk factor for CHD)HDL-cholesterol is affected by a number of factors, e.g. smoking, exercise, hormones, sex and age. Serum or plasma cholesterol measurement (mass/volume)Ordered By: Saurabh Fernandez on 12-09-2024 Cholesterol [Mass/Vol] 203 mg/dL High <201 [facility] Comment on above: Cholesterol level, D esirable <200 mg/dLBorderline high cholesterol 200-239 mg/dLHigh cholesterol >=240 mg/dLRecommendations of the NCEP Adult Treatment Panel for the following risk-cutoff thresholds for the [place] population. Serum or plasma urea nitroge n measurement (mass/volume)Ordered By: Saurabh Fernandez on 12-09-2024 Urea nitrogen [Mass/Vol] 16 mg/dL 4-19 [facility] Sodium levelOrdered By: Saurabh Fernandez on 12-09-2024 Sodium [Moles/Vol] 142 mmol/L 133-145 [facility] TSH DL <= 0.005 mIU/L QnOrde red By: Saurabh Fernandez on 12-09-2024 Thyroid Stimulating Hormone (TSH) 2.930 uIU/mL 0.300-4.200 [facility] Thyroid Stim Hormone (TSH)on 12-09-2024 TSH 2.930 uIU/mL Normal 0.300-4.200 [facility] Comment on above: Order Comment: 105.1 Performed By: #### M 100.638 #### [facility] Laboratory [address] [place], [address] Total proteinOrdered By: Ambreen Fernandez on 12-09-2024 Protein [Mass/Vol] 6.3 g/dL 5.9-8.4 [facility] Triglycerides measurementOrd ered By: Saurabh Fernandez on 12-09-2024 Triglyceride [Mass/Vol] 180 mg/dL <199 [facility] Comment on above: The drugs N-Acetylcy steine and Metamizole may falsely depress this assay. Normal range: <150 mg/dLBorderline High: 150-199 mg/dLHigh: 200-499 mg/dLVery High: >500 mg/dL White blood cell (WBC) count Ordered By: Saurabh Fernandez on 12-09-2024 WBC (Bld) [#/Vol] 7.8 10*3/uL 4.4-11.0 [facility] L506.1001on 11-22-2024 Vitamin D 25-OH 45.2 ng/mL Normal 30-100 [facility] Comment on above: Order Comment: 105.1 Result Comment: Kerline min D Status Deficiency: <20 ng/mL (50nmol/L) Insufficiency: 20-30 ng/mL (50-75 nmol/L) Sufficiency: 30-100 ng/mL (75-250 nmol/L) Toxicity: >100 ng/mL (>250 nmol/L) Performed By: #### L 506.1001, L501.8100 #### [facility] [address] [place], [place], [address] Valproate [Mass/Vol]Ordered By: Saurabh Fernandez on 11-22-2024 Valproic Acid (Depakene) Level 20 ug/mL Low 50-100 [facility] Comment on above: Valproic Acid concen trations >100 ug/mL are potentially toxic. Valproic Acid (Depakene) Lev ladonna 11-22-2024 VALPROIC ACID 20 ug/mL Low 50-100 [facility] Comment on above: Order Comment: 105.1 Result Comment: Valp roic Acid concentrations >100 ug/mL are potentially toxic. Performed By: #### L 506.1001, L501.8100 #### [facility] [address] [place], [place], [id number] Vitamin D, 25-hydroxyOrdered By: Saurabh Fernandez on 11-22-2024 Vitamin D 25-Hydroxy 45.2 ng/mL 30-100 [facility] Comment on above: Vitamin D StatusDefi ciency: <20 ng/mL (50nmol/L)Insufficiency: 20-30 ng/mL (50-75 nmol/L)Sufficiency: 30-100 ng/mL (75-250 nmol/L)Toxicity: >100 ng/mL (>250 nmol/L) BUN/creatinine ratioOrdered By: Saurabh Fernandez on 11-17-2024 Urea nitrogen/Creatinine [Mass ratio] 27.0 mg/mg High [address] [place] [address] Basic Metabolic Profile (BMP )on 11-17-2024 BUN/CRE 27.0 RATIO High [facility]20 [facility] Comment on above: Order Comment: 105-1 Performed By: #### L 500.2500 #### [facility] Laboratory [address] [place], [place], [id number] GFR/1.73 sq M.predicted among non-blacks MDRD (S/P/Bld) [Vol rate/Area] 78 mL/min/{1.73_m2} Normal >60 [facility] Comment on above: Order Comment: 105-1 Result Comment: mL/m in/1.73m2 CKD-EPI Creatinine Equation (2020) Performed By: #### L 500.2500 #### [facility] [address] [place], [place], [id number] Carbon dioxide measurementOr dered By: Saurabh Fernandez on 11-17-2024 CO2 [Moles/Vol] 25.7 mmol/L Normal 22.0-29.0 [facility] Comment on above: Order Comment: 105-1 Performed By: #### L 500.2500 #### [facility] [address] [place], [place], [id number] Chloride measurementOrdered By: Saurabh Fernandez on 11-17-2024 Chloride [Moles/Vol] 107 mmol/L Normal 96-108 [facility] Comment on above: Order Comment: 105-1 Performed By: #### L 500.2500 #### [facility] [address] [place], [address] GFR/1.73 sq M.predicted layne g non-blacks MDRD (S/P/Bld) [Vol rate/Area]Ordered By: Saurabh Fernandez on 11-17-2024 Estimated GFR (MDRD) Non-Af Amer 78 >60 [facility] Comment on above: mL/min/1.73m2 CKD-EP I Creatinine Equation (2020) Serum glucose measurement (m ass/volume)Ordered By: Saurabh Fernandez on 11-17-2024 Glucose [Mass/Vol] 83 mg/dL Normal 70-99 [facility] Comment on above: Order Comment: 105-1 Performed By: #### L 500.2500 #### [facility] [address] [place], [place], [phone] ([phone] Serum or plasma anion gap de termination (moles/volume)Ordered By: Saurabh Fernandez on 11-17-2024 Anion gap [Moles/Vol] 9 mmol/L Normal 5-15 [facility] Comment on above: Order Comment: 105-1 Performed By: #### L 500.2500 #### [facility] [address] [place], [place], [phone] ([address] Serum or plasma calcium tyrese urement (mass/volume)Ordered By: Saurabh Fernandez on 11-17-2024 Calcium [Mass/Vol] 8.4 mg/dL Normal 7.6-11.0 [facility] Comment on above: Order Comment: 105-1 Performed By: #### L 500.2500 #### [facility] [address] [place], [address] Serum or plasma creatinine m easurement (moles/volume)Ordered By: Saurabh Fernandez on 11-17-2024 Creatinine [Mass/Vol] 0.8 mg/dL Normal 0.6-1.0 [facility] Comment on above: Order Comment: 105-1 Performed By: #### L 500.2500 #### [facility] [address] [place], [place], [phone] ([phone] Serum or plasma potassium me asurementOrdered By: Saurabh Fernandez on 11-17-2024 Potassium [Moles/Vol] 4.5 mmol/L Normal 3.3-5.1 [facility] Comment on above: Hemolysis present, R esults could be affected. Order Comment: 105- Result Comment: Hemo lysis present, Results??could be affected. ?? Performed By: #### L 500.2500 #### [facility] [address] [place], [address] Serum or plasma sodium measu rement (moles/volume)Ordered By: Saurabh Fernandez on 11-17-2024 Sodium [Moles/Vol] 141 mmol/L Normal 133-145 [facility] Comment on above: Order Comment: 105-1 Performed By: #### L 500.2500 #### [facility] [address] [place], [address] Serum or plasma urea nitroge n measurement (mass/volume)Ordered By: Saurabh Fernandez on 11-17-2024 Urea nitrogen [Mass/Vol] 21 mg/dL High 4-19 [facility] Comment on above: Order Comment: 105-1 Performed By: #### L 500.2500 #### [facility] [address] [place], [address] Basic Metabolic Profile (BMP )on 11-10-2024 BUN/CRE 27.0 RATIO High 10-20 [facility] Comment on above: Order Comment: 105.1 Performed By: #### L 500.2500, L100.0500 #### [facility] [address] [place], [address] CA,Total 8.7 mg/dL Normal 8.5-10.1 [facility] Comment on above: Order Comment: 105.1 Performed By: #### L 500.2500, L100.0500 #### [facility] [address] [place], [address] Chloride [Moles/Vol] 118 mmol/L High 98-107 [facility] Comment on above: Order Comment: 105.1 Performed By: #### L 500.2500, L100.0500 #### [facility] [address] [place], [address] CO2 [Moles/Vol] 31.0 mmol/L Normal 21.0-32.0 [facility] Comment on above: Order Comment: 105.1 Performed By: #### L 500.2500, L100.0500 #### [facility] [address] [place], [address] Creatinine [Mass/Vol] 0.81 mg/dL Normal 0.55-1.02 [facility] Comment on above: Order Comment: 105.1 Result Comment: The validity of the calculated GFR GFRAA in patients over 70 years has not been determined. Clinical correlation is essential. Performed By: #### L 500.2500, L100.0500 #### [facility] [address] [place], [address] EST GFR - AA 87 mL/min Normal >60 [facility] Comment on above: Order Comment: 105.1 Result Comment: Afri can [place] GFR Calc Performed By: #### L 500.2500, L100.0500 #### [facility] [address] [place], [address] GAP 2 Low 5-15 [facility] Comment on above: Order Comment: 105.1 Performed By: #### L 500.2500, L100.0500 #### [facility] [address] [place], [address] GFR/1.73 sq M.predicted among non-blacks MDRD (S/P/Bld) [Vol rate/Area] 72 mL/min/{1.73_m2} Normal >60 [facility] Comment on above: Order Comment: 105.1 Result Comment: Non- GFR Calc Performed By: #### L 500.2500, L100.0500 #### [facility] [address] [place], [address] Glucose [Mass/Vol] 96 mg/dL Normal 74-106 [facility] Comment on above: Order Comment: 105.1 Performed By: #### L 500.2500, L100.0500 #### [facility] [address] [place], [address] Potassium [Moles/Vol] 3.9 mmol/L Normal 3.5-5.1 [facility] Comment on above: Order Comment: 105.1 Performed By: #### L 500.2500, L100.0500 #### [facility] [address] [place], [address] Sodium [Moles/Vol] 151 mmol/L High 136-145 [facility] Comment on above: Order Comment: 105.1 Performed By: #### L 500.2500, L100.0500 #### [facility] [address] [place], [address] Urea nitrogen [Mass/Vol] 22 mg/dL High 7-18 [facility] Comment on above: Order Comment: 105.1 Performed By: #### L 500.2500, L100.0500 #### [facility] [address] [place], [address] Blood urea nitrogen (BUN)/cr eatinine ratioOrdered By: Saurabh Fernandez on 11-10-2024 Urea nitrogen/Creatinine [Mass ratio] 27.0 mg/mg High 10- [facility] CBC-Complete Blood Cnt No Di ffon 11-10-2024 Erythrocyte distribution width (RBC) [Ratio] 14.4 % Normal 11.6-14.6 [facility] Comment on above: Order Comment: 105.1 Performed By: #### L 500.2500, L100.0500 #### [facility] [address] [place], [address] Hematocrit (Bld) [Volume fraction] 41.3 % Normal 37-47 [facility] Comment on above: Order Comment: 105.1 Performed By: #### L 500.2500, L100.0500 #### [facility] [address] [place], [address] Hemoglobin (Bld) [Mass/Vol] 12.5 g/dL Normal 12.0-15.0 [facility] Comment on above: Order Comment: 105.1 Performed By: #### L 500.2500, L100.0500 #### [facility] [address] [place], [address] MCH (RBC) [Entitic mass] 30.9 pg Normal 27.0-32.0 [facility] Comment on above: Order Comment: 105.1 Performed By: #### L 500.2500, L100.0500 #### [facility] [address] [place], [address] MCHC (RBC) [Mass/Vol] 30.3 g/dL Low 32-36 [facility] Comment on above: Order Comment: 105.1 Performed By: #### L 500.2500, L100.0500 #### [facility] [address] [place], [address] MCV (RBC) [Entitic vol] 102.0 fL High 81-99 [facility] Comment on above: Order Comment: 105.1 Performed By: #### L 500.2500, L100.0500 #### [facility] [address] [place], [address] Platelet mean volume (Bld) [Entitic vol] 10.0 fL Normal 6.2-12.0 [facility] Comment on above: Order Comment: 105.1 Performed By: #### L 500.2500, L100.0500 #### [facility] [address] [place], [address] Platelets (Bld) [#/Vol] 351 10*3/uL Normal 150-450 [facility] Comment on above: Order Comment: 105.1 Performed By: #### L 500.2500, L100.0500 #### [facility] [address] [place], [address] RBC (Bld) [#/Vol] 4.05 10*6/uL Low 4.2-5.4 [facility] Comment on above: Order Comment: 105.1 Performed By: #### L 500.2500, L100.0500 #### [facility] [address] [place], [address] RDW SD 53.7 fl High 35.1-43.9 [facility] Comment on above: Order Comment: 105.1 Performed By: #### L 500.2500, L100.0500 #### [facility] [address] [place], [address] WBC (Bld) [#/Vol] 8.5 10*3/uL Normal 4.4-11.0 [facility] Comment on above: Order Comment: 105.1 Performed By: #### L 500.2500, L100.0500 #### [facility] [address] [place], [place], [id number] Carbon dioxide measurementOr dered By: Saurabh Fernandez on 11-10-2024 CO2 [Moles/Vol] 31.0 mmol/L 21.0-32.0 [facility] Chloride measurementOrdered By: Saurabh Fernandez on 11-10-2024 Chloride [Moles/Vol] 118 mmol/L High 98-107 [facility] Erythrocyte distribution wid th (RBC) [Ratio]Ordered By: Saurabh Fernandez on 11-10-2024 Erythrocyte distribution width (RBC) [Entitic vol] 53.7 fL High 35.1-43.9 [facility] Erythrocyte distribution wid th ratioOrdered By: Saurabh Fernandez on 11-10-2024 Erythrocyte distribution width (RBC) [Ratio] 14.4 % 11.6-14.6 [facility] Estimated glomerular filtrat ion rate (GFR) AmericanOrdered By: Saurabh Fernandez on 11-10-2024 Estimated GFR (MDRD) Amer 87 mL/min >60 [facility] Comment on above: GFR Calc Glomerular filtration rate ( GFR) estimationOrdered By: Saurabh Fernandez on 11-10-2024 Estimated GFR (MDRD) Non-Af Amer 72 mL/min >60 [facility] Comment on above: Non- GFR Calc Glucose measurementOrdered B y: Saurabh Fernandez on 11-10-2024 Glucose [Mass/Vol] 96 mg/dL 74-106 [facility] Hematocrit Auto (Bld) [Volum e fraction]Ordered By: Saurabh Fernandez on 11-10-2024 Hematocrit (Bld) [Volume fraction] 41.3 % 37-47 [facility] Hemoglobin measurementOrdere d By: Saurabh Fernandez on 11-10-2024 Hemoglobin (Bld) [Mass/Vol] 12.5 g/dL 12.0-15.0 [facility] MCV (mean corpuscular volume ) determinationOrdered By: Saurabh Fernandez on 11-10-2024 MCV (RBC) [Entitic vol] 102.0 fL High 81-99 [facility] Mean corpuscular hemoglobin (MCH) determinationOrdered By: Saurabh Fernandez on 11-10-2024 MCH (RBC) [Entitic mass] 30.9 pg 27.0-32.0 [facility] Mean corpuscular hemoglobin concentration (MCHC) determinationOrdered By: Saurabh Fernandez on 11-10-2024 MCHC (RBC) [Mass/Vol] 30.3 g/dL Low 32-36 [facility] Mean platelet volume determi nationOrdered By: Saurabh Fernandez on 11-10-2024 Platelet mean volume (Bld) [Entitic vol] 10.0 fL 6.2-12.0 [facility] Platelet countOrdered By: Nieto on 11-10-2024 Platelets (Bld) [#/Vol] 351 10*3/uL 150-450 [facility] Potassium measurementOrdered By: Saurabh Fernandez on 11-10-2024 Potassium [Moles/Vol] 3.9 mmol/L 3.5-5.1 [facility] RBC Auto (Bld) [#/Vol]Ordere d By: Saurabh Fernandez on 11-10-2024 RBC (Bld) [#/Vol] 4.05 10*6/uL Low 4.2-5.4 [facility] Serum anion gap measurementO rdered By: Saurabh Fernandez on 11-10-2024 Anion gap [Moles/Vol] 2 mmol/L Low 5-15 [facility] Serum or plasma calcium tyrese urement (mass/volume)Ordered By: Saurabh Fernandez on 11-10-2024 Calcium [Mass/Vol] 8.7 mg/dL 8.5-10.1 [facility] Serum or plasma creatinine m easurement (mass/volume)Ordered By: Saurabh Fernandez on 11-10-2024 Creatinine [Mass/Vol] 0.81 mg/dL 0.55-1.02 [facility] Comment on above: The validity of the calculated GFR & GFRAA in patients over 70 years has not been determined. Clinical correlation is essential. Serum or plasma urea nitroge n measurement (mass/volume)Ordered By: Saurabh Fernandez on 11-10-2024 Urea nitrogen [Mass/Vol] 22 mg/dL High 7-18 [facility] Sodium levelOrdered By: Saurabh Fernandez on 11-10-2024 Sodium [Moles/Vol] 151 mmol/L High 136-145 [facility] White blood cell (WBC) count Ordered By: Saurabh Fernandez on 11-10-2024 WBC (Bld) [#/Vol] 8.5 10*3/uL 4.4-11.0 [facility] Absolute neutrophil countOrd ered By: Saurabh Fernandez on 09-16-2024 Neutrophils (Bld) [#/Vol] 3.3 10*3/uL 2.0-7.7 [facility] Albumin to globulin ratioOrd ered By: Saurabh Fernandez on 09-16-2024 Albumin/Globulin [Mass ratio] 0.7 {ratio} Low 0.9-2.4 [facility] Basophil percentageOrdered B y: Saurabh Fernandez on 09-16-2024 Basophils/100 WBC (Bld) 1.0 % 0-1 [facility] Bilirubin, totalOrdered By: Saurabh Fernandez on 09-16-2024 Bilirubin [Mass/Vol] 0.50 mg/dL 0.20-1.00 [facility] Comment on above: For patients on eltr ombopag therapy, use of Dimension [place] TBIL is not recommended. Blood urea nitrogen (BUN)/cr eatinine ratioOrdered By: Saurabh Fernandez on 09-16-2024 Urea nitrogen/Creatinine [Mass ratio] 30.8 mg/mg High 10-20 [facility] CBC W/Diff, Automatedon 08-23 Absolute Lymph 3.46 X10 3/uL Normal 0.83-4.51 [facility] Comment on above: Order Comment: 105.1 Performed By: #### L 500.5580, L501.9520, L500.4050, L100.0100 #### [facility] [address] [place], [place], [id number] Absolute Neut 3.3 X10 3/uL Normal 2.0-7.7 [facility] Comment on above: Order Comment: 105.1 Performed By: #### L 500.4100, L501.9520, L500.4050, L100.0100 #### [facility] [address] [place], [address] Basophils/100 WBC (Bld) 1.0 % Normal 0-1 [facility] Comment on above: Order Comment: 105.1 Performed By: #### L 500.4100, L501.9520, L500.4050, L100.0100 #### [facility] [address] [place], [address] Eosinophils/100 WBC (Bld) 4.6 % Normal 0-5 [facility] Comment on above: Order Comment: 105.1 Performed By: #### L 500.4100, L501.9520, L500.4050, L100.0100 #### [facility] [address] [place], [address] Erythrocyte distribution width (RBC) [Ratio] 13.3 % Normal 11.6-14.6 [facility] Comment on above: Order Comment: 105.1 Performed By: #### L 500.4100, L501.9520, L500.4050, L100.0100 #### [facility] [address] [place], [address] Hematocrit (Bld) [Volume fraction] 46.4 % Normal 37-47 [facility] Comment on above: Order Comment: 105.1 Performed By: #### L 500.4100, L501.9520, L500.4050, L100.0100 #### [facility] [address] [place], [address] Hemoglobin (Bld) [Mass/Vol] 15.0 g/dL Normal 12.0-15.0 [facility] Comment on above: Order Comment: 105.1 Performed By: #### L 500.4100, L501.9520, L500.4050, L100.0100 #### [facility] [address] [place], [address] IG% 0.400 Normal 0.0-0.9 [facility] Comment on above: Order Comment: 105.1 Result Comment: IG% - Immature Granulocytes (promyelocytes, myelocytes and metamyelocytes) > 1% indicates that a LEFT SHIFT is Present. Performed By: #### L 500.4100, L501.9520, L500.4050, L100.0100 #### [facility] [address] [place], [address] Lymphocytes/100 WBC (Bld) 44.1 % High 19-41 [facility] Comment on above: Order Comment: 105.1 Performed By: #### L 500.4100, L501.9520, L500.4050, L100.0100 #### [facility] [address] [place], [address] MCH (RBC) [Entitic mass] 32.1 pg High 27.0-32.0 [facility] Comment on above: Order Comment: 105.1 Performed By: #### L 500.4100, L501.9520, L500.4050, L100.0100 #### [facility] [address] [place], [address] MCHC (RBC) [Mass/Vol] 32.3 g/dL Normal 32-36 [facility] Comment on above: Order Comment: 105.1 Performed By: #### L 500.4100, L501.9520, L500.4050, L100.0100 #### [facility] [address] [place], [address] MCV (RBC) [Entitic vol] 99.1 fL High 81-99 [facility] Comment on above: Order Comment: 105.1 Performed By: #### L 500.4100, L501.9520, L500.4050, L100.0100 #### [facility] [address] [place], [address] Monocytes/100 WBC (Bld) 7.7 % Normal 0-10 [facility] Comment on above: Order Comment: 105.1 Performed By: #### L 500.4100, L501.9520, L500.4050, L100.0100 #### [facility] [address] [place], [address] Neutrophils/100 WBC (Bld) 42.2 % Low 47-70 [facility] Comment on above: Order Comment: 105.1 Performed By: #### L 500.4100, L501.9520, L500.4050, L100.0100 #### [facility] [address] [place], [address] Nucleated RBC (Bld) [#/Vol] 0 10*3/uL Normal 0-5 [facility] Comment on above: Order Comment: 105.1 Performed By: #### L 500.4100, L501.9520, L500.4050, L100.0100 #### [facility] [address] [place], [address] Platelet mean volume (Bld) [Entitic vol] 11.6 fL Normal 6.2-12.0 [facility] Comment on above: Order Comment: 105.1 Performed By: #### L 500.4100, L501.9520, L500.4050, L100.0100 #### [facility] [address] [place], [address] Platelets (Bld) [#/Vol] 209 10*3/uL Normal 150-450 [facility] Comment on above: Order Comment: 105.1 Performed By: #### L 500.4100, L501.9520, L500.4050, L100.0100 #### [facility] [address] [place], [address] RBC (Bld) [#/Vol] 4.68 10*6/uL Normal 4.2-5.4 [facility] Comment on above: Order Comment: 105.1 Performed By: #### L 500.4100, L501.9520, L500.4050, L100.0100 #### [facility] [address] [place], [address] RDW SD 48.9 fl High 35.1-43.9 [facility] Comment on above: Order Comment: 105.1 Performed By: #### L 500.4100, L501.9520, L500.4050, L100.0100 #### [facility] [address] [place], [address] WBC (Bld) [#/Vol] 7.8 10*3/uL Normal 4.4-11.0 [facility] Comment on above: Order Comment: 105.1 Performed By: #### L 500.4100, L501.9520, L500.4050, L100.0100 #### [facility] [address] [place], [address] Carbon dioxide measurementOr dered By: Saurabh Fernandez on 09-16-2024 CO2 [Moles/Vol] 31.0 mmol/L 21.0-32.0 [facility] Chloride measurementOrdered By: Saurabh Fernandez on 09-16-2024 Chloride [Moles/Vol] 109 mmol/L High 98-107 [facility] Comprehensive Metabolic Prof ilon 09-16-2024 Albumin [Mass/Vol] 2.8 g/dL Low 3.2-5.0 [facility] Comment on above: Order Comment: 105.1 Performed By: #### L 500.4100, L501.9520, L500.4050, L100.0100 #### [facility] [address] [place], [address] Albumin/Globulin [Mass ratio] 0.7 {ratio} Low 0.9-2.4 [facility] Comment on above: Order Comment: 105.1 Performed By: #### L 500.4100, L501.9520, L500.4050, L100.0100 #### [facility] [address] [place], [address] ALK P 69 U/L Normal 45-117 [facility] Comment on above: Order Comment: 105.1 Performed By: #### L 500.4100, L501.9520, L500.4050, L100.0100 #### [facility] [address] [place], [address] ALT [Catalytic activity/Vol] 21 U/L Normal 13-56 [facility] Comment on above: Order Comment: 105.1 Performed By: #### L 500.4100, L501.9520, L500.4050, L100.0100 #### [facility] [address] [place], [address] AST [Catalytic activity/Vol] 17 U/L Normal 15-37 [facility] Comment on above: Order Comment: 105.1 Performed By: #### L 500.4100, L501.9520, L500.4050, L100.0100 #### [facility] [address] [place], [address] Bilirubin [Mass/Vol] 0.50 mg/dL Normal 0.20-1.00 [facility] Comment on above: Order Comment: 105.1 Result Comment: For patients on eltrombopag therapy, use of Dimension [place] TBIL is not recommended. Performed By: #### L 500.4100, L501.9520, L500.4050, L100.0100 #### [facility] [address] [place], [address] BUN/CRE 30.8 RATIO High 10-20 [facility] Comment on above: Order Comment: 105.1 Performed By: #### L 500.4100, L501.9520, L500.4050, L100.0100 #### [facility] [address] [place], [address] CA,Total 8.7 mg/dL Normal 8.5-10.1 [facility] Comment on above: Order Comment: 105.1 Performed By: #### L 500.4100, L501.9520, L500.4050, L100.0100 #### [facility] [address] [place], [address] Chloride [Moles/Vol] 109 mmol/L High 98-107 [facility] Comment on above: Order Comment: 105.1 Performed By: #### L 500.4100, L501.9520, L500.4050, L100.0100 #### [facility] [address] [place], [address] CO2 [Moles/Vol] 31.0 mmol/L Normal 21.0-32.0 [facility] Comment on above: Order Comment: 105.1 Performed By: #### L 500.4100, L501.9520, L500.4050, L100.0100 #### [facility] [address] [place], [address] Creatinine [Mass/Vol] 1.04 mg/dL High 0.55-1.02 [facility] Comment on above: Order Comment: 105.1 Result Comment: The validity of the calculated GFR GFRAA in patients over 70 years has not been determined. Clinical correlation is essential. Performed By: #### L 500.4100, L501.9520, L500.4050, L100.0100 #### [facility] [address] [place], [address] EST GFR - AA 65 mL/min Normal >60 [facility] Comment on above: Order Comment: 105.1 Result Comment: Afri can [place] GFR Calc Performed By: #### L 500.4100, L501.9520, L500.4050, L100.0100 #### [facility] [address] [place], [address] GAP 2 Low 5-15 [facility] Comment on above: Order Comment: 105.1 Performed By: #### L 500.4100, L501.9520, L500.4050, L100.0100 #### [facility] [address] [place], [address] GFR/1.73 sq M.predicted among non-blacks MDRD (S/P/Bld) [Vol rate/Area] 54 mL/min/{1.73_m2} Low >60 [facility] Comment on above: Order Comment: 105.1 Result Comment: Non- GFR Calc Performed By: #### L 500.4100, L501.9520, L500.4050, L100.0100 #### [facility] [address] [place], [address] Globulin (S) [Mass/Vol] 4.0 g/dL Normal 2.2-4.2 [facility] Comment on above: Order Comment: 105.1 Performed By: #### L 500.4100, L501.9520, L500.4050, L100.0100 #### [facility] [address] [place], [address] Glucose [Mass/Vol] 89 mg/dL Normal 74-106 [facility] Comment on above: Order Comment: 105.1 Performed By: #### L 500.4100, L501.9520, L500.4050, L100.0100 #### [facility] [address] [place], [address] Potassium [Moles/Vol] 4.4 mmol/L Normal 3.5-5.1 [facility] Comment on above: Order Comment: 105.1 Performed By: #### L 500.4100, L501.9520, L500.4050, L100.0100 #### [facility] [address] [place], [address] Sodium [Moles/Vol] 142 mmol/L Normal 136-145 [facility] Comment on above: Order Comment: 105.1 Performed By: #### L 500.4100, L501.9520, L500.4050, L100.0100 #### [facility] [address] [place], [address] T PROT 6.8 g/dL Normal 6.4-8.2 [facility] Comment on above: Order Comment: 105.1 Performed By: #### L 500.4100, L501.9520, L500.4050, L100.0100 #### [facility] [address] [place], [address] Urea nitrogen [Mass/Vol] 32 mg/dL High 7-18 [facility] Comment on above: Order Comment: 105.1 Performed By: #### L 500.4100, L501.9520, L500.4050, L100.0100 #### [facility] [address] [place], [address] Eosinophil percentageOrdered By: Saurabh Fernandez on 09-16-2024 Eosinophils/100 WBC (Bld) 4.6 % 0-5 [facility] Erythrocyte distribution wid th (RBC) [Ratio]Ordered By: Saurabh Fernandez on 09-16-2024 Erythrocyte distribution width (RBC) [Entitic vol] 48.9 fL High 35.1-43.9 [facility] Erythrocyte distribution wid th ratioOrdered By: Saurabh Fernandez on 09-16-2024 Erythrocyte distribution width (RBC) [Ratio] 13.3 % 11.6-14.6 [facility] Estimated glomerular filtrat ion rate (GFR) AmericanOrdered By: Saurabh Fernandez on 09-16-2024 Estimated GFR (MDRD) Amer 65 mL/min >60 [facility] Comment on above: GFR Calc Glomerular filtration rate ( GFR) estimationOrdered By: Saurabh Fernandez on 09-16-2024 Estimated GFR (MDRD) Non-Af Amer 54 mL/min Low >60 [facility] Comment on above: Non- GFR Calc Glucose measurementOrdered B y: Saurabh Fernandez on 09-16-2024 Glucose [Mass/Vol] 89 mg/dL 74-106 [facility] Hematocrit Auto (Bld) [Volum e fraction]Ordered By: Saurabh Fernandez on 09-16-2024 Hematocrit (Bld) [Volume fraction] 46.4 % 37-47 [facility] Hemoglobin measurementOrdere d By: Saurabh Fernandez on 09-16-2024 Hemoglobin (Bld) [Mass/Vol] 15.0 g/dL 12.0-15.0 [facility] High density lipoprotein (HD L) measurementOrdered By: Saurabh Fernandez on 09-16-2024 Cholesterol in HDL [Mass/Vol] 52 mg/dL >40 [facility] Comment on above: The drugs N-Acetylcy steine and Metamizole may falsely depress this assay. Reference Range HDL <40 mg/dL Low HDL Cholesterol HDL >or= 60 mg/dL High HDL Cholesterol Immature granulocytes/100 WB C Auto (Bld)Ordered By: Saurabh Fernandez on 09-16-2024 Immature granulocytes/100 WBC (Bld) 0.400 % 0.0-0.9 [facility] Comment on above: IG% - Immature Granu locytes (promyelocytes, myelocytes and metamyelocytes) > 1% indicates that a LEFT SHIFT is Present. Laboratory - Chemistry and C hemistry - challengeOrdered By: Saurabh Fernandez on 09-16-2024 AST [Catalytic activity/Vol] 17 U/L 15-37 [facility] Lipid Profileon 09-16-2024 Cholesterol [Mass/Vol] 190 mg/dL Normal 200 [facility] Comment on above: Order Comment: 105-1 Result Comment: <200 mg/dL Desirable 200-240 mg/dL Borderline >240 mg/dL High Risk Performed By: #### L 506.1001, L501.8100 #### [facility] [address] [place], [address] Cholesterol in HDL [Mass/Vol] 52 mg/dL Normal [facility] Comment on above: Order Comment: 105-1 Result Comment: The drugs N-Acetylcysteine and Metamizole may falsely depress this assay. Reference Range HDL <40 mg/dL Low HDL Cholesterol HDL >or= 60 mg/dL High HDL Cholesterol Performed By: #### L 506.1001, L501.8100 #### [facility] [address] [place], [address] Cholesterol in LDL [Mass/Vol] 113 mg/dL Normal 0-130 [facility] Comment on above: Order Comment: 105-1 Performed By: #### L 506.1001, L501.8100 #### [facility] [address] [place], [address] Cholesterol in VLDL [Mass/Vol] 25 mg/dL Normal 5-40 [facility] Comment on above: Order Comment: 105-1 Performed By: #### L 506.1001, L501.8100 #### [facility] [address] [place], [address] Triglyceride [Mass/Vol] 125 mg/dL Normal [facility] Comment on above: Order Comment: 105-1 Result Comment: The drugs N-Acetylcysteine and Metamizole may falsely depress this assay. Serum Triglycerides Reference Interval Normal <150 mg/dL Borderline high 150 - 199 mg/dL High 200 - 499 mg/dL Very High > or = 500 mg/dL Performed By: #### L 506.1001, L501.8100 #### [facility] [address] [place], [address] Low density lipoprotein (LDL ) cholesterol measurementOrdered By: Saurabh Fernandez on 09-16-2024 Cholesterol in LDL [Mass/Vol] 113 mg/dL 0-130 [facility] Lymphocytes Auto (Unsp spec) [#/Vol]Ordered By: Saurabh Fernandez on 09-16-2024 Lymphocytes (Bld) [#/Vol] 3.46 10*3/uL 0.83-4.51 [facility] Lymphocytes/100 WBC Auto (Un sp spec)Ordered By: Saurabh Fernandez on 09-16-2024 Lymphocytes/100 WBC (Bld) 44.1 % High 19-41 [facility] MCV (mean corpuscular volume ) determinationOrdered By: Saurabh Fernandez on 09-16-2024 MCV (RBC) [Entitic vol] 99.1 fL High 81-99 [facility] Mean corpuscular hemoglobin (MCH) determinationOrdered By: Saurabh Fernandez on 09-16-2024 MCH (RBC) [Entitic mass] 32.1 pg High 27.0-32.0 [facility] Mean corpuscular hemoglobin concentration (MCHC) determinationOrdered By: Saurabh Fernandez on 09-16-2024 MCHC (RBC) [Mass/Vol] 32.3 g/dL 32-36 [facility] Mean platelet volume determi nationOrdered By: Saurabh Fernandez on 09-16-2024 Platelet mean volume (Bld) [Entitic vol] 11.6 fL 6.2-12.0 [facility] Monocyte percentageOrdered B y: Saurabh Fernandez on 09-16-2024 Monocytes/100 WBC (Bld) 7.7 % 0-10 [facility] Neutrophil percentageOrdered By: Saurabh Fernandez on 09-16-2024 Neutrophils/100 WBC (Bld) 42.2 % Low 47-70 [facility] Nucleated red blood cell per centageOrdered By: Saurabh Fernandez on 09-16-2024 Nucleated RBC/100 WBC (Bld) [Ratio] 0 % 0-5 [facility] Platelet countOrdered By: Nieto on 09-16-2024 Platelets (Bld) [#/Vol] 209 10*3/uL 150-450 [facility] Potassium measurementOrdered By: Saurabh Fernandez on 09-16-2024 Potassium [Moles/Vol] 4.4 mmol/L 3.5-5.1 [facility] RBC Auto (Bld) [#/Vol]Ordere d By: Saurabh Fernandez on 09-16-2024 RBC (Bld) [#/Vol] 4.68 10*6/uL 4.2-5.4 [facility] Serum anion gap measurementO rdered By: Saurabh Fernandez on 09-16-2024 Anion gap [Moles/Vol] 2 mmol/L Low 5-15 [facility] Serum globulin measurementOr dered By: Saurabh Fernandez on 09-16-2024 Globulin (S) [Mass/Vol] 4.0 g/dL 2.2-4.2 [facility] Serum or plasma alanine macedo otransferase (ALT) measurementOrdered By: Saurabh Fernandez on 09-16-2024 ALT [Catalytic activity/Vol] 21 U/L 13-56 [facility] Serum or plasma albumin tyrese urement (mass/volume)Ordered By: Saurabh Fernandez on 09-16-2024 Albumin [Mass/Vol] 2.8 g/dL Low 3.2-5.0 [facility] Serum or plasma alkaline elia sphatase measurementOrdered By: Saurabh Fernandez on 09-16-2024 ALP [Catalytic activity/Vol] 69 U/L 45-117 [facility] Serum or plasma calcium tyrese urement (mass/volume)Ordered By: Saurabh Fernandez on 09-16-2024 Calcium [Mass/Vol] 8.7 mg/dL 8.5-10.1 [facility] Serum or plasma cholesterol measurement (mass/volume)Ordered By: Saurabh Fernandez on 09-16-2024 Cholesterol [Mass/Vol] 190 mg/dL <200 [facility] Comment on above: <200 mg/dL Desirable 200-240 mg/dL Borderline >240 mg/dL High Risk Serum or plasma creatinine m easurement (mass/volume)Ordered By: Saurabh Fernandez on 09-16-2024 Creatinine [Mass/Vol] 1.04 mg/dL High 0.55-1.02 [facility] Comment on above: The validity of the calculated GFR & GFRAA in patients over 70 years has not been determined. Clinical correlation is essential. Serum or plasma urea nitroge n measurement (mass/volume)Ordered By: Saurabh Fernandez on 09-16-2024 Urea nitrogen [Mass/Vol] 32 mg/dL High 7-18 [facility] Sodium levelOrdered By: Saurabh Fernandez on 09-16-2024 Sodium [Moles/Vol] 142 mmol/L 136-145 [facility] TSH QnOrdered By: Saurabh handy on 09-16-2024 Thyroid Stimulating Hormone (TSH) 2.080 uIU/mL 0.358-3.740 [facility] Thyroid Stim Hormone (TSH)on 09-16-2024 TSH 2.080 uIU/mL Normal 0.358-3.740 [facility] Comment on above: Order Comment: 105-1 Performed By: #### L 506.1001, L501.8100 #### [facility] [address] [place], [address] Total proteinOrdered By: Ambreen Fernandez on 09-16-2024 Protein [Mass/Vol] 6.8 g/dL 6.4-8.2 [facility] Triglycerides measurementOrd ered By: Saurabh Fernandez on 09-16-2024 Triglyceride [Mass/Vol] 125 mg/dL <199 [facility] Comment on above: The drugs N-Acetylcy steine and Metamizole may falsely depress this assay.Serum Triglycerides Reference Interval Normal <150 mg/dL Borderline high 150 - 199 mg/dL High 200 - 499 mg/dL Very High > or = 500 mg/dL Very low density lipoprotein (VLDL) cholesterol measurementOrdered By: Saurabh Fernandez on 09-16-2024 VLDL Cholesterol 25 mg/dL 5-40 [facility] White blood cell (WBC) count Ordered By: Saurabh Fernandez on 09-16-2024 WBC (Bld) [#/Vol] 7.8 10*3/uL 4.4-11.0 [facility] 54-GO-Kwdugct DOrdered By: Migue Fernandez on 08-30-2024 Vitamin D 25-Hydroxy 69.9 ng/mL [facility] Comment on above: Vitamin D 25([place]) Sta tus Range Deficiency <20 ng/mL (50nmol/L) Insufficiency 20 - 30 ng/mL (50 - 75 nmol/L) Sufficiency 30 - 100 ng/mL (75 - 250 nmol/L) Toxicity >100 ng/mL (>250 nmol/L) Valproate levelOrdered By: Migue Fernandez on 08-30-2024 Valproic Acid (Depakene) Level 26 ug/mL Low 50-100 [facility] Valproic Acid (Depakene) Lev ladonna 08-30-2024 VALPROIC ACID 26 ug/mL Low 50-100 [facility] Comment on above: Order Comment: 105.1 Performed By: #### L 500.2500, L100.0500 #### [facility] [address] [place], [address] Vitamin D,25 Hydroxyon 08-30 Vitamin D 25-OH 69.9 ng/mL Normal [facility] Comment on above: Order Comment: 105.1 Result Comment: Kerline min D 25(OH) Status Range Deficiency <20 ng/mL (50nmol/L) Insufficiency 20 - 30 ng/mL (50 - 75 nmol/L) Sufficiency 30 - 100 ng/mL (75 - 250 nmol/L) Toxicity >100 ng/mL (>250 nmol/L) Performed By: #### L 500.2500, L100.0500 #### [facility] [address] [place], [address] Thyroid Stim Hormone (TSH)on 08-09-2024 TSH 1.590 uIU/mL Normal 0.358-3.740 [facility] Comment on above: Order Comment: 105-1 Performed By: #### L 506.1001, L501.8100 #### [facility] [address] [place], [address] CBC W/Diff, Automatedon 10-0 Absolute Lymph 3.04 X10 3/uL Normal 0.83-4.51 [facility] Comment on above: Order Comment: 105-1 Performed By: #### L 506.1001, L501.8100 #### [facility] [address] [place], [address] Absolute Neut 3.0 X10 3/uL Normal 2.0-7.7 [facility] Comment on above: Order Comment: 105-1 Performed By: #### L 506.1001, L501.8100 #### [facility] [address] [place], [address] Basophils/100 WBC (Bld) 0.6 % Normal 0-1 [facility] Comment on above: Order Comment: 105-1 Performed By: #### L 506.1001, L501.8100 #### [facility] [address] [place], [address] Eosinophils/100 WBC (Bld) 4.4 % Normal 0-5 [facility] Comment on above: Order Comment: 105-1 Performed By: #### L 506.1001, L501.8100 #### [facility] [address] [place], [address] Erythrocyte distribution width (RBC) [Ratio] 13.1 % Normal 11.6-14.6 [facility] Comment on above: Order Comment: 105-1 Performed By: #### L 506.1001, L501.8100 #### [facility] [address] [place], [address] Hematocrit (Bld) [Volume fraction] 44.5 % Normal 37-47 [facility] Comment on above: Order Comment: 105-1 Performed By: #### L 506.1001, L501.8100 #### [facility] [address] [place], [address] Hemoglobin (Bld) [Mass/Vol] 14.0 g/dL Normal 12.0-15.0 [facility] Comment on above: Order Comment: 105-1 Performed By: #### L 506.1001, L501.8100 #### [facility] [address] [place], [address] IG% 0.300 Normal 0.0-0.9 [facility] Comment on above: Order Comment: 105-1 Result Comment: IG% - Immature Granulocytes (promyelocytes, myelocytes and metamyelocytes) > 1% indicates that a LEFT SHIFT is Present. Performed By: #### L 506.1001, L501.8100 #### [facility] [address] [place], [address] Lymphocytes/100 WBC (Bld) 43.3 % High 19-41 [facility] Comment on above: Order Comment: 105-1 Performed By: #### L 506.1001, L501.8100 #### [facility] [address] [place], [address] MCH (RBC) [Entitic mass] 31.5 pg Normal 27.0-32.0 [facility] Comment on above: Order Comment: 105-1 Performed By: #### L 506.1001, L501.8100 #### [facility] [address] [place], [address] MCHC (RBC) [Mass/Vol] 31.5 g/dL Low 32-36 [facility] Comment on above: Order Comment: 105-1 Performed By: #### L 506.1001, L501.8100 #### [facility] [address] [place], [address] MCV (RBC) [Entitic vol] 100.0 fL High 81-99 [facility] Comment on above: Order Comment: 105-1 Performed By: #### L 506.1001, L501.8100 #### [facility] [address] [place], [address] Monocytes/100 WBC (Bld) 8.3 % Normal 0-10 [facility] Comment on above: Order Comment: 105-1 Performed By: #### L 506.1001, [id number] #### [facility] [address] [place], [address] Neutrophils/100 WBC (Bld) 43.1 % Low 47-70 [facility] Comment on above: Order Comment: 105-1 Performed By: #### L 506.1001, L501.8100 #### [facility] [address] [place], [address] Nucleated RBC (Bld) [#/Vol] 0 10*3/uL Normal 0-5 [facility] Comment on above: Order Comment: 105-1 Performed By: #### L 506.1001, L501.8100 #### [facility] [address] [place], [address] Platelet mean volume (Bld) [Entitic vol] 11.5 fL Normal 6.2-12.0 [facility] Comment on above: Order Comment: 105-1 Performed By: #### L 506.1001, [id number] #### [facility] [address] [place], [address] Platelets (Bld) [#/Vol] 203 10*3/uL Normal 150-450 [facility] Comment on above: Order Comment: 105-1 Performed By: #### L 506.1001, L501.8100 #### [facility] [address] [place], [address] RBC (Bld) [#/Vol] 4.45 10*6/uL Normal 4.2-5.4 [facility] Comment on above: Order Comment: 105-1 Performed By: #### L 506.1001, [id number] #### [facility] [address] [place], [address] RDW SD 48.5 fl High 35.1-43.9 [facility] Comment on above: Order Comment: 105-1 Performed By: #### L 506.1001, [id number] #### [facility] [address] [place], [address] WBC (Bld) [#/Vol] 7.0 10*3/uL Normal 4.4-11.0 [facility] Comment on above: Order Comment: 105-1 Performed By: #### L 506.1001, L501.8100 #### [facility] [address] [place], [address] Comprehensive Metabolic Prof ilon 06-25-2024 Albumin [Mass/Vol] 2.7 g/dL Low 3.2-5.0 [facility] Comment on above: Order Comment: 105-1 Performed By: #### L 506.1001, [id number] #### [facility] [address] [place], [address] Albumin/Globulin [Mass ratio] 0.7 {ratio} Low 0.9-2.4 [facility] Comment on above: Order Comment: 105-1 Performed By: #### L 506.1001, [id number] #### [facility] [address] [place], [address] ALK P 73 U/L Normal 45-117 [facility] Comment on above: Order Comment: 105-1 Performed By: #### L 506.1001, [id number] #### [facility] [address] [place], [address] ALT [Catalytic activity/Vol] 17 U/L Normal 13-56 [facility] Comment on above: Order Comment: 105-1 Performed By: #### L 506.1001, [id number] #### [facility] [address] [place], [address] AST [Catalytic activity/Vol] 17 U/L Normal 15-37 [facility] Comment on above: Order Comment: 105-1 Performed By: #### L 506.1001, [id number] #### [facility] [address] [place], [address] Bilirubin [Mass/Vol] 0.80 mg/dL Normal 0.20-1.00 [facility] Comment on above: Order Comment: 105-1 Result Comment: For patients on eltrombopag therapy, use of Dimension [place] TBIL is not recommended. Performed By: #### L 506.1001, L501.8100 #### [facility] [address] [place], [address] BUN/CRE 21.4 RATIO High 10-20 [facility] Comment on above: Order Comment: 105-1 Performed By: #### L 506.1001, [id number] #### [facility] [address] [place], [address] CA,Total 8.8 mg/dL Normal 8.5-10.1 [facility] Comment on above: Order Comment: 105-1 Performed By: #### L 506.1001, [id number] #### [facility] [address] [place], [address] Chloride [Moles/Vol] 109 mmol/L High 98-107 [facility] Comment on above: Order Comment: 105-1 Performed By: #### L 506.1001, [id number] #### [facility] [address] [place], [address] CO2 [Moles/Vol] 30.0 mmol/L Normal 21.0-32.0 [facility] Comment on above: Order Comment: 105-1 Performed By: #### L 506.1001, [id number] #### [facility] [address] [place], [address] Creatinine [Mass/Vol] 0.75 mg/dL Normal 0.55-1.02 [facility] Comment on above: Order Comment: 105-1 Result Comment: The validity of the calculated GFR GFRAA in patients over 70 years has not been determined. Clinical correlation is essential. Performed By: #### L 506.1001, L501.8100 #### [facility] [address] [place], [address] EST GFR - AA 96 mL/min Normal >60 [facility] Comment on above: Order Comment: 105-1 Result Comment: Afri can Citizen [place] GFR Calc Performed By: #### L 506.1001, L501.8100 #### [facility] [address] [place], [address] GAP 4 Low 5-15 [facility] Comment on above: Order Comment: 105-1 Performed By: #### L 506.1001, L501.8100 #### [facility] [address] [place], [address] GFR/1.73 sq M.predicted among non-blacks MDRD (S/P/Bld) [Vol rate/Area] 79 mL/min/{1.73_m2} Normal >60 [facility] Comment on above: Order Comment: 105-1 Result Comment: Non- GFR Calc Performed By: #### L 506.1001, L501.8100 #### [facility] [address] [place], [address] Globulin (S) [Mass/Vol] 3.7 g/dL Normal 2.2-4.2 [facility] Comment on above: Order Comment: 105-1 Performed By: #### L 506.1001, [id number] #### [facility] [address] [place], [address] Glucose [Mass/Vol] 82 mg/dL Normal 74-106 [facility] Comment on above: Order Comment: 105-1 Performed By: #### L 506.1001, [id number] #### [facility] [address] [place], [address] Potassium [Moles/Vol] 4.0 mmol/L Normal 3.5-5.1 [facility] Comment on above: Order Comment: 105-1 Performed By: #### L 506.1001, [id number] #### [facility] [address] [place], [address] Sodium [Moles/Vol] 143 mmol/L Normal 136-145 [facility] Comment on above: Order Comment: 105-1 Performed By: #### L 506.1001, L501.8100 #### [facility] [address] [place], [address] T PROT 6.4 g/dL Normal 6.4-8.2 [facility] Comment on above: Order Comment: 105-1 Performed By: #### L 506.1001, [id number] #### [facility] [address] [place], [address] Urea nitrogen [Mass/Vol] 16 mg/dL Normal 7-18 [facility] Comment on above: Order Comment: -1 Performed By: #### L 506.1001, L501.8100 #### [facility] [address] [place], [address] Lipid Profileon 06-25-2024 Cholesterol [Mass/Vol] 192 mg/dL Normal 200 [facility] Comment on above: Order Comment: Result Comment: <200 mg/dL Desirable 200-240 mg/dL Borderline >240 mg/dL High Risk Performed By: #### L 506.1001, L501.8100 #### [facility] [address] [place], [address] Cholesterol in HDL [Mass/Vol] 47 mg/dL Normal [facility] Comment on above: Order Comment: Result Comment: The drugs N-Acetylcysteine and Metamizole may falsely depress this assay. Reference Range HDL <40 mg/dL Low HDL Cholesterol HDL >or= 60 mg/dL High HDL Cholesterol Performed By: #### L 506.1001, L501.8100 #### [facility] [address] [place], [address] Cholesterol in LDL [Mass/Vol] 107 mg/dL Normal 0-130 [facility] Comment on above: Order Comment: 105-1 Performed By: #### L 506.1001, L501.8100 #### [facility] [address] [place], [address] Cholesterol in VLDL [Mass/Vol] 38 mg/dL Normal 5-40 [facility] Comment on above: Order Comment: 105-1 Performed By: #### L 506.1001, L501.8100 #### [facility] [address] [place], [address] Triglyceride [Mass/Vol] 188 mg/dL Normal [facility] Comment on above: Order Comment: 105- Result Comment: The drugs N-Acetylcysteine and Metamizole may falsely depress this assay. Serum Triglycerides Reference Interval Normal <150 mg/dL Borderline high 150 - 199 mg/dL High 200 - 499 mg/dL Very High > or = 500 mg/dL Performed By: #### L 506.1001, L501.8100 #### [facility] [address] [place], [address] Thyroid Stim Hormone (TSH)on 06-25-2024 TSH 4.290 uIU/mL High 0.358-3.740 [facility] Comment on above: Order Comment: 105-1 Performed By: #### L 506.1001, [id number] #### [facility] [address] [place], [address] CBC W/Diff, Automatedon 10-0 Absolute Neut Normal 2.0-7.7 [facility] Comment on above: Order Comment: 105 Result Comment: This specimen has been REJECTED due to Laboratory criteria: Quanity Not Sufficient. MYEAGER has been notified of need of recollection. 06/24/24 0900 Selam Esposito Performed By: #### L 506.1001, L501.8100 #### [facility] [address] [place], [address] HCT Normal 37-47 [facility] Comment on above: Order Comment: 105-1 Result Comment: This specimen has been REJECTED due to Laboratory criteria: Quanity Not Sufficient. MYEAGER has been notified of need of recollection. 06/24/24899 Selam Esposito Performed By: #### L 506.1001, [id number] #### [facility] [address] [place], [address] HGB Normal 12.0-15.0 [facility] Comment on above: Order Comment: 105-1 Result Comment: This specimen has been REJECTED due to Laboratory criteria: Quanity Not Sufficient. MYEAGER has been notified of need of recollection. 06/24/24899 Selam Esposito Performed By: #### L 506.1001, [id number] #### [facility] [address] [place], [address] MCH Normal 27.0-32.0 [facility] Comment on above: Order Comment: 105-1 Result Comment: This specimen has been REJECTED due to Laboratory criteria: Quanity Not Sufficient. MYEAGER has been notified of need of recollection. 06/24/24899 Selam Esposito Performed By: #### L 506.1001, [id number] #### [facility] [address] [place], [address] MCHC Normal 32-36 [facility] Comment on above: Order Comment: 105-1 Result Comment: This specimen has been REJECTED due to Laboratory criteria: Quanity Not Sufficient. MYEAGER has been notified of need of recollection. 06/24/24899 Selam Esposito Performed By: #### L 506.1001, [id number] #### [facility] [address] [place], [address] MCV Normal 81-99 [facility] Comment on above: Order Comment: 105-1 Result Comment: This specimen has been REJECTED due to Laboratory criteria: Quanity Not Sufficient. MYEAGER has been notified of need of recollection. 06/24/24899 Selam Esposito Performed By: #### L 506.1001, [id number] #### [facility] [address] [place], [address] NEUT% Normal 47-70 [facility] Comment on above: Order Comment: 105-1 Result Comment: This specimen has been REJECTED due to Laboratory criteria: Quanity Not Sufficient. MYEAGER has been notified of need of recollection. 06/24/24899 Selam Esposito Performed By: #### L 506.1001, [id number] #### [facility] [address] [place], [address] PLT Normal 150-450 [facility] Comment on above: Order Comment: 105-1 Result Comment: This specimen has been REJECTED due to Laboratory criteria: Quanity Not Sufficient. MYEAGER has been notified of need of recollection. 06/24/24899 Selam Esposito Performed By: #### L 506.1001, [id number] #### [facility] [address] [place], [address] RBC Normal 4.2-5.4 [facility] Comment on above: Order Comment: 105-1 Result Comment: This specimen has been REJECTED due to Laboratory criteria: Quanity Not Sufficient. MYEAGER has been notified of need of recollection. 06/24/24899 Selam Esposito Performed By: #### L 506.1001, [id number] #### [facility] [address] [place], [address] RDW CV Normal 11.6-14.6 [facility] Comment on above: Order Comment: 105-1 Result Comment: This specimen has been REJECTED due to Laboratory criteria: Quanity Not Sufficient. MYEAGER has been notified of need of recollection. 06/24/24899 Selam Esposito Performed By: #### L 506.1001, [id number] #### [facility] [address] [place], [address] RDW SD Normal 35.1-43.9 [facility] Comment on above: Order Comment: 105-1 Result Comment: This specimen has been REJECTED due to Laboratory criteria: Quanity Not Sufficient. MYEAGER has been notified of need of recollection. 06/24/24899 Selam Esposito Performed By: #### L 506.1001, [id number] #### [facility] [address] [place], [address] WBC Normal 4.4-11.0 [facility] Comment on above: Order Comment: 105- Result Comment: This specimen has been REJECTED due to Laboratory criteria: Quanity Not Sufficient. MYEAGER has been notified of need of recollection. 06/24/24899 Selam Esposito Performed By: #### L 506.1001, [id number] #### [facility] [address] [place], [address] Comprehensive Metabolic Prof ilon 06-24-2024 ALB Normal 3.2-5.0 [facility] Comment on above: Order Comment: 105-1 Result Comment: COUL D NOT OBTAIN ENOUGH BLOOD Performed By: #### L 506.1001, [id number] #### [facility] [address] [place], [address] ALK P Normal 45-117 [facility] Comment on above: Order Comment: 105-1 Result Comment: COUL D NOT OBTAIN ENOUGH BLOOD Performed By: #### L 506.1001, [id number] #### [facility] [address] [place], [address] ALT Normal 13-56 [facility] Comment on above: Order Comment: 105-1 Result Comment: COUL D NOT OBTAIN ENOUGH BLOOD Performed By: #### L 506.1001, [id number] #### [facility] [address] [place], [address] AST Normal 15-37 [facility] Comment on above: Order Comment: 105-1 Result Comment: COUL D NOT OBTAIN ENOUGH BLOOD Performed By: #### L 506.1001, [id number] #### [facility] [address] [place], [address] BUN Normal 7-18 [facility] Comment on above: Order Comment: 105-1 Result Comment: COUL D NOT OBTAIN ENOUGH BLOOD Performed By: #### L 506.1001, [id number] #### [facility] [address] [place], [address] BUN/CRE Normal 10-20 [facility] Comment on above: Order Comment: 105-1 Result Comment: COUL D NOT OBTAIN ENOUGH BLOOD Performed By: #### L 506.1001, [id number] #### [facility] [address] [place], [address] CA,Total Normal 8.5-10.1 [facility] Comment on above: Order Comment: 105-1 Result Comment: COUL D NOT OBTAIN ENOUGH BLOOD Performed By: #### L 506.1001, [id number] #### [facility] [address] [place], [address] CL Normal 98-107 [facility] Comment on above: Order Comment: 105-1 Result Comment: COUL D NOT OBTAIN ENOUGH BLOOD Performed By: #### L 506.1001, [id number] #### [facility] [address] [place], [address] CO2 Normal 21.0-32.0 [facility] Comment on above: Order Comment: 105-1 Result Comment: COUL D NOT OBTAIN ENOUGH BLOOD Performed By: #### L 506.1001, [id number] #### [facility] [address] [place], [address] CREAT,SERUM Normal 0.55-1.02 [facility] Comment on above: Order Comment: 105-1 Result Comment: COUL D NOT OBTAIN ENOUGH BLOOD Performed By: #### L 506.1001, [id number] #### [facility] [address] [place], [address] EST GFR Normal >60 [facility] Comment on above: Order Comment: 105-1 Result Comment: COUL D NOT OBTAIN ENOUGH BLOOD Performed By: #### L 506.1001, [id number] #### [facility] [address] [place], [address] EST GFR - AA Normal >60 [facility] Comment on above: Order Comment: 105-1 Result Comment: COUL D NOT OBTAIN ENOUGH BLOOD Performed By: #### L 506.1001, [id number] #### [facility] [address] [place], [address] GAP Normal 5-15 [facility] Comment on above: Order Comment: 105-1 Result Comment: COUL D NOT OBTAIN ENOUGH BLOOD Performed By: #### L 506.1001, [id number] #### [facility] [address] [place], [address] GLU Normal 74-106 [facility] Comment on above: Order Comment: 105-1 Result Comment: COUL D NOT OBTAIN ENOUGH BLOOD Performed By: #### L 506.1001, [id number] #### [facility] [address] [place], [address] Potassium Normal 3.5-5.1 [facility] Comment on above: Order Comment: 105-1 Result Comment: COUL D NOT OBTAIN ENOUGH BLOOD Performed By: #### L 506.1001, [id number] #### [facility] [address] [place], [address] T BILI Normal 0.20-1.00 [facility] Comment on above: Order Comment: 105-1 Result Comment: COUL D NOT OBTAIN ENOUGH BLOOD Performed By: #### L 506.1001, [id number] #### [facility] [address] [place], [address] T PROT Normal 6.4-8.2 [facility] Comment on above: Order Comment: 105- Result Comment: COUL D NOT OBTAIN ENOUGH BLOOD Performed By: #### L 506.1001, [id number] #### [facility] [address] [place], [address] Comprehensive Metabolic Profil Normal 136-145 [facility] Comment on above: Order Comment: 105-1 Result Comment: COUL D NOT OBTAIN ENOUGH BLOOD Performed By: #### L 506.1001, [id number] #### [facility] [address] [place], [address] Lipid Profileon 06-24-2024 CHOL Normal 200 [facility] Comment on above: Order Comment: 105- Result Comment: COUL D NOT OBTAIN ENOUGH BLOOD Performed By: #### L 506.1001, [id number] #### [facility] [address] [place], [address] HDL Normal [facility] Comment on above: Order Comment: 105- Result Comment: COUL D NOT OBTAIN ENOUGH BLOOD Performed By: #### L 506.1001, [id number] #### [facility] [address] [place], [address] LDL Normal 0-130 [facility] Comment on above: Order Comment: 105-1 Result Comment: COUL D NOT OBTAIN ENOUGH BLOOD Performed By: #### L 506.1001, [id number] #### [facility] [address] [place], [address] TRIG Normal [facility] Comment on above: Order Comment: 105-1 Result Comment: COUL D NOT OBTAIN ENOUGH BLOOD Performed By: #### L 506.1001, [id number] #### [facility] [address] [place], [address] VLDL Normal 5-40 [facility] Comment on above: Order Comment: Result Comment: COUL D NOT OBTAIN ENOUGH BLOOD Performed By: #### L 506.1001, [id number] #### [facility] [address] [place], [place], [address] Valproic Acid (Depakene) Lev ladonna 06-07-2024 VALPROIC ACID 16 ug/mL Low 50-100 [facility] Comment on above: Order Comment: Performed By: #### M 100.638 #### [facility] [address] [place], [address] Vitamin D,25 Hydroxyon 06-07 Vitamin D 25-OH 65.6 ng/mL Normal [facility] Comment on above: Order Comment: Result Comment: Kerline min D 25(OH) Status Range Deficiency <20 ng/mL (50nmol/L) Insufficiency 20 - 30 ng/mL (50 - 75 nmol/L) Sufficiency 30 - 100 ng/mL (75 - 250 nmol/L) Toxicity >100 ng/mL (>250 nmol/L) Performed By: #### M 100.638 #### [facility] [address] [place], [address] Absolute lymphocyte countOrd ered By: Saurabh Fernandez on 10-16-2023 Lymphocytes Auto (Unsp spec) [#/Vol] 2.40 10*3/uL 0.83-4.51 [facility] Automated lymphocyte count a s percentage of total leukocytesOrdered By: Saurabh Fernandez on 10-16-2023 Lymphocytes/100 WBC Auto (Unsp spec) 22.2 % 19-41 [facility] Basophil percentageOrdered B y: Saurabh Fernandez on 10-16-2023 Basophils/100 WBC (Bld) 0.6 % 0-1 [facility] Bilirubin [Mass/Vol] 0.50 mg/dL 0.20-1.00 [facility] Comment on above: For patients on eltr ombopag therapy, use of Dimension [place] TBIL is not recommended. Chloride [Moles/Vol] 109 mmol/L 98-107 [facility] Cholesterol [Mass/Vol] 204 mg/dL <200 [facility] Comment on above: <200 mg/dL Desirable 200-240 mg/dL Borderline >240 mg/dL High Risk Eosinophils/100 WBC (Bld) 2.9 % 0-5 [facility] Glucose [Mass/Vol] 84 mg/dL 74-106 [facility] Hemoglobin (Bld) [Mass/Vol] 15.1 g/dL 12.0-15.0 [facility] Monocytes/100 WBC (Bld) 7.4 % 0-10 [facility] Neutrophils (Bld) [#/Vol] 7.2 10*3/uL 2.0-7.7 [facility] Neutrophils/100 WBC (Bld) 66.6 % 47-70 [facility] Potassium [Moles/Vol] 3.9 mmol/L 3.5-5.1 [facility] Protein [Mass/Vol] 6.4 g/dL 6.4-8.2 [facility] Sodium [Moles/Vol] 140 mmol/L 136-145 [facility] Triglyceride [Mass/Vol] 144 mg/dL <199 [facility] Comment on above: The drugs N-Acetylcy steine and Metamizole may falsely depress this assay.Serum Triglycerides Reference Interval Normal <150 mg/dL Borderline high 150 - 199 mg/dL High 200 - 499 mg/dL Very High > or = 500 mg/dL WBC (Bld) [#/Vol] 10.8 10*3/uL 4.4-11.0 [facility] Determination of erythrocyte mean corpuscular volume (MCV)Ordered By: Saurabh Fernandez on 10-16-2023 MCV (RBC) [Entitic vol] 99.6 fL 81-99 [facility] Erythrocyte distribution wid th ratioOrdered By: Saurabh Fernandez on 10-16-2023 Erythrocyte distribution width (RBC) [Ratio] 13.4 % 11.6-14.6 [facility] Erythrocyte distribution wid th standard deviationOrdered By: Saurabh Fernandez on 10-16-2023 Erythrocyte distribution width (RBC) [Entitic vol] 49.4 fL 35.1-43.9 [facility] Hematocrit Auto (Bld) [Volum e fraction]Ordered By: Saurabh Fernandez on 10-16-2023 Hematocrit (Bld) [Volume fraction] 47.5 % 37-47 [facility] Immature granulocytes/100 WB C Auto (Bld)Ordered By: Saurabh Fernandez on 10-16-2023 Immature granulocytes/100 WBC (Bld) 0.300 % 0.0-0.9 [facility] Comment on above: IG% - Immature Granu locytes (promyelocytes, myelocytes and metamyelocytes) > 1% indicates that a LEFT SHIFT is Present. Laboratory - Chemistry and C hemistry - challengeOrdered By: Saurabh Fernandez on 10-16-2023 Albumin/Globulin [Mass ratio] 0.7 {ratio} 0.9-2.4 [facility] ALP [Catalytic activity/Vol] 67 U/L 45-117 [facility] ALT [Catalytic activity/Vol] 20 U/L 13-56 [facility] Cholesterol in HDL (Body fld) [Mass/Vol] 48 mg/dL >40 [facility] Comment on above: The drugs N-Acetylcy steine and Metamizole may falsely depress this assay. Reference Range HDL <40 mg/dL Low HDL Cholesterol HDL >or= 60 mg/dL High HDL Cholesterol Cholesterol in LDL (Body fld) [Moles/Vol] 127 mg/dL 0-130 [facility] Cholesterol in VLDL Calc [Moles/Vol] 29 mg/dL 5-40 [facility] CO2 [Moles/Vol] 29.0 mmol/L 21.0-32.0 [facility] Globulin (S) [Mass/Vol] 3.7 g/dL 2.2-4.2 [facility] Urea nitrogen/Creatinine [Mass ratio] 27.9 mg/mg 10-20 [facility] Laboratory - Hematology and Cell countsOrdered By: Saurabh Fernandez on 10-16-2023 MCH (RBC) [Entitic mass] 31.7 pg 27.0-32.0 [facility] MCHC (RBC) [Mass/Vol] 31.8 g/dL 32-36 [facility] Nucleated RBC/100 WBC (Bld) [Ratio] 0 % 0-5 [facility] Platelets (Bld) [#/Vol] 185 10*3/uL 150-450 [facility] No Panel InformationOrdered By: Saurabh Fernandez on 10-16-2023 Estimated GFR (MDRD) Amer 86 mL/min >60 [facility] Comment on above: GFR Calc Estimated GFR (MDRD) Non-Af Amer 71 mL/min >60 [facility] Comment on above: Non- GFR Calc Platelet mean volume Lior-Ec ker (Bld) [Entitic vol]Ordered By: Saurabh Fernandez on 10-16-2023 Platelet mean volume (Bld) [Entitic vol] 11.8 fL 6.2-12.0 [facility] RBC Auto (Bld) [#/Vol]Ordere d By: Saurabh Fernandez on 10-16-2023 RBC (Bld) [#/Vol] 4.77 10*6/uL 4.2-5.4 [facility] Serum or plasma calcium tyrese urement (mass/volume)Ordered By: Saurabh Fernandez on 10-16-2023 Calcium [Mass/Vol] 8.9 mg/dL 8.5-10.1 [facility] Serum or plasma creatinine m easurement (mass/volume)Ordered By: Saurabh Fernandez on 10-16-2023 Creatinine [Mass/Vol] 0.82 mg/dL 0.55-1.02 [facility] Comment on above: The validity of the calculated GFR & GFRAA in patients over 70 years has not been determined. Clinical correlation is essential. Serum or plasma thyroid stim ulating hormone (TSH) measurement (units/volume)Ordered By: Saurabh Fernandez on 10-16-2023 TSH Qn 2.62 uIU/mL 0.358-3.74 [facility] Serum or plasma urea nitroge n measurement (mass/volume)Ordered By: Saurabh Fernandez on 10-16-2023 Urea nitrogen [Mass/Vol] 23 mg/dL 7-18 [facility] Thin prep Papanicolaou smear with manual screeningOrdered By: Saurabh Fernandez on 10-16-2023 Thin prep Papanicolaou smear with manual screening 2.7 g/dL 3.2-5.0 [facility] Thin prep Papanicolaou smear with manual screening 15 U/L 15-37 [facility] Thin prep Papanicolaou smear with manual screening 2 5-15 [facility] No Panel InformationOrdered By: Saurabh Fernandez on 09-29-2023 Valproic Acid (Depakene) Level 27 ug/mL 50-100 [facility] Vitamin D 25-Hydroxy 86.5 ng/mL [facility] Comment on above: Vitamin D 25(OH) Sta tus Range Deficiency <20 ng/mL (50nmol/L) Insufficiency 20 - 30 ng/mL (50 - 75 nmol/L) Sufficiency 30 - 100 ng/mL (75 - 250 nmol/L) Toxicity >100 ng/mL (>250 nmol/L) Absolute lymphocyte countOrd ered By: Saurabh Fernandez on 09-01-2023 Lymphocytes Auto (Unsp spec) [#/Vol] 4.12 10*3/uL 0.83-4.51 [facility] Basophil percentageOrdered B y: Saurabh Fernandez on 09-01-2023 Basophils/100 WBC (Bld) 0.8 % 0-1 [facility] Bilirubin [Mass/Vol] 0.80 mg/dL 0.20-1.00 [facility] Comment on above: For patients on eltr ombopag therapy, use of Dimension [place] TBIL is not recommended. Chloride [Moles/Vol] 110 mmol/L 98-107 [facility] Eosinophils/100 WBC (Bld) 4.8 % 0-5 [facility] Glucose [Mass/Vol] 79 mg/dL 74-106 [facility] Neutrophils (Bld) [#/Vol] 4.2 10*3/uL 2.0-7.7 [facility] Neutrophils/100 WBC (Bld) 43.6 % 47-70 [facility] Potassium [Moles/Vol] 4.1 mmol/L 3.5-5.1 [facility] Comment on above: Moderate Hemolysis, Result may be falsely increased. Protein [Mass/Vol] 6.7 g/dL 6.4-8.2 [facility] Sodium [Moles/Vol] 142 mmol/L 136-145 [facility] WBC (Bld) [#/Vol] 9.7 10*3/uL 4.4-11.0 [facility] Blood erythrocytes count (nu mber/volume)Ordered By: Saurabh Fernandez on 09-01-2023 RBC (Bld) [#/Vol] 5.00 10*6/uL 4.2-5.4 [facility] Blood hemoglobin measurement (mass/volume)Ordered By: Saurabh Fernandez on 09-01-2023 Hemoglobin (Bld) [Mass/Vol] 16.0 g/dL 12.0-15.0 [facility] Blood lymphocytes/100 leukoc ytesOrdered By: Saurabh Fernandez on 09-01-2023 Lymphocytes/100 WBC (Bld) 42.4 % 19-41 [facility] Blood monocytes/100 leukocyt esOrdered By: Saurabh Fernandez on 09-01-2023 Monocytes/100 WBC (Bld) 7.9 % 0-10 [facility] Blood platelet mean volumeOr dered By: Saurabh Fernandez on 09-01-2023 Platelet mean volume (Bld) [Entitic vol] 11.9 fL 6.2-12.0 [facility] Determination of erythrocyte mean corpuscular volume (MCV)Ordered By: Saurabh Fernandez on 09-01-2023 MCV (RBC) [Entitic vol] 100.8 fL 81-99 [facility] Hematocrit Auto (Bld) [Volum e fraction]Ordered By: Saurabh Fernandez on 09-01-2023 Hematocrit (Bld) [Volume fraction] 50.4 % 37-47 [facility] Laboratory - Chemistry and C hemistry - challengeOrdered By: Saurabh Fernandez on 09-01-2023 ALP [Catalytic activity/Vol] 67 U/L 45-117 [facility] ALT [Catalytic activity/Vol] 21 U/L 13-56 [facility] CO2 [Moles/Vol] 26.0 mmol/L 21.0-32.0 [facility] Globulin (S) [Mass/Vol] 4.0 g/dL 2.2-4.2 [facility] Urea nitrogen/Creatinine [Mass ratio] 30.2 mg/mg 10-20 [facility] Laboratory - Hematology and Cell countsOrdered By: Saurabh Fernandez on 09-01-2023 Erythrocyte distribution width (RBC) [Entitic vol] 52.3 fL 35.1-43.9 [facility] Erythrocyte distribution width (RBC) [Ratio] 14.0 % 11.6-14.6 [facility] Immature granulocytes/100 WBC (Bld) 0.500 % 0.0-0.9 [facility] Comment on above: IG% - Immature Granu locytes (promyelocytes, myelocytes and metamyelocytes) > 1% indicates that a LEFT SHIFT is Present. MCH (RBC) [Entitic mass] 32.0 pg 27.0-32.0 [facility] Nucleated RBC/100 WBC (Bld) [Ratio] 0 % 0-5 [facility] MCHC Auto (RBC) [Mass/Vol]Or dered By: Saurabh Fernandez on 09-01-2023 MCHC (RBC) [Mass/Vol] 31.7 g/dL 32-36 [facility] No Panel InformationOrdered By: Saurabh Fernandez on 09-01-2023 Estimated GFR (MDRD) Amer 72 mL/min >60 [facility] Comment on above: GFR Calc Estimated GFR (MDRD) Non-Af Amer 59 mL/min >60 [facility] Comment on above: Non- GFR Calc Platelets bldOrdered By: Ambreen Fernandez on 09-01-2023 Platelets (Bld) [#/Vol] 221 10*3/uL 150-450 [facility] Serum or plasma albumin tyrese urement (mass/volume)Ordered By: Saurabh Fernandez on 09-01-2023 Albumin [Mass/Vol] 2.7 g/dL 3.2-5.0 [facility] Serum or plasma albumin/glob ulin mass ratioOrdered By: Saurabh Fernandez on 09-01-2023 Albumin/Globulin [Mass ratio] 0.7 {ratio} 0.9-2.4 [facility] Serum or plasma calcium tyrese urement (mass/volume)Ordered By: Saurabh Fernandez on 09-01-2023 Calcium [Mass/Vol] 8.3 mg/dL 8.5-10.1 [facility] Serum or plasma creatinine m easurement (mass/volume)Ordered By: Saurabh Fernandez on 09-01-2023 Creatinine [Mass/Vol] 0.96 mg/dL 0.55-1.02 [facility] Comment on above: The validity of the calculated GFR & GFRAA in patients over 70 years has not been determined. Clinical correlation is essential. Serum or plasma urea nitroge n measurement (mass/volume)Ordered By: Saurabh Fernandez on 09-01-2023 Urea nitrogen [Mass/Vol] 29 mg/dL 7-18 [facility] Thin prep Papanicolaou smear with manual screeningOrdered By: Saurabh Fernandez on 09-01-2023 Thin prep Papanicolaou smear with manual screening 24 U/L 15-37 [facility] Comment on above: Moderate Hemolysis, Result may be falsely increased. Thin prep Papanicolaou smear with manual screening 6 5-15 [facility] Absolute lymphocyte countOrd ered By: Saurabh Fernandez on 07-24-2023 Lymphocytes Auto (Unsp spec) [#/Vol] 3.02 10*3/uL 0.83-4.51 [facility] Basophil percentageOrdered B y: Saurabh Fernandez on 07-24-2023 Basophils/100 WBC (Bld) 0.6 % 0-1 [facility] Bilirubin [Mass/Vol] 0.40 mg/dL 0.20-1.00 [facility] Comment on above: For patients on eltr ombopag therapy, use of Dimension [place] TBIL is not recommended. Chloride [Moles/Vol] 110 mmol/L 98-107 [facility] Cholesterol [Mass/Vol] 189 mg/dL <200 [facility] Comment on above: <200 mg/dL Desirable 200-240 mg/dL Borderline >240 mg/dL High Risk Eosinophils/100 WBC (Bld) 4.2 % 0-5 [facility] Glucose [Mass/Vol] 85 mg/dL 74-106 [facility] Neutrophils (Bld) [#/Vol] 3.1 10*3/uL 2.0-7.7 [facility] Neutrophils/100 WBC (Bld) 43.7 % 47-70 [facility] Potassium [Moles/Vol] 4.2 mmol/L 3.5-5.1 [facility] Protein [Mass/Vol] 6.4 g/dL 6.4-8.2 [facility] Sodium [Moles/Vol] 141 mmol/L 136-145 [facility] Triglyceride [Mass/Vol] 137 mg/dL <199 [facility] Comment on above: The drugs N-Acetylcy steine and Metamizole may falsely depress this assay.Serum Triglycerides Reference Interval Normal <150 mg/dL Borderline high 150 - 199 mg/dL High 200 - 499 mg/dL Very High > or = 500 mg/dL WBC (Bld) [#/Vol] 7.1 10*3/uL 4.4-11.0 [facility] Blood erythrocytes count (nu mber/volume)Ordered By: Saurabh Fernandez on 07-24-2023 RBC (Bld) [#/Vol] 4.72 10*6/uL 4.2-5.4 [facility] Blood hemoglobin measurement (mass/volume)Ordered By: Saurabh Fernandez on 07-24-2023 Hemoglobin (Bld) [Mass/Vol] 14.8 g/dL 12.0-15.0 [facility] Blood lymphocytes/100 leukoc ytesOrdered By: Saurabh Fernandez on 07-24-2023 Lymphocytes/100 WBC (Bld) 42.6 % 19-41 [facility] Blood monocytes/100 leukocyt esOrdered By: Saurabh Fernandez on 07-24-2023 Monocytes/100 WBC (Bld) 8.5 % 0-10 [facility] Blood platelet mean volumeOr dered By: Saurabh Fernandez on 07-24-2023 Platelet mean volume (Bld) [Entitic vol] 12.0 fL 6.2-12.0 [facility] Determination of erythrocyte mean corpuscular volume (MCV)Ordered By: Saurabh Fernandez on 07-24-2023 MCV (RBC) [Entitic vol] 100.2 fL 81-99 [facility] Hematocrit Auto (Bld) [Volum e fraction]Ordered By: Saurabh Fernandez on 07-24-2023 Hematocrit (Bld) [Volume fraction] 47.3 % 37-47 [facility] Laboratory - Chemistry and C hemistry - challengeOrdered By: Saurabh Fernandez on 07-24-2023 ALP [Catalytic activity/Vol] 57 U/L 45-117 [facility] ALT [Catalytic activity/Vol] 18 U/L 13-56 [facility] CO2 [Moles/Vol] 29.0 mmol/L 21.0-32.0 [facility] Globulin (S) [Mass/Vol] 3.9 g/dL 2.2-4.2 [facility] Urea nitrogen/Creatinine [Mass ratio] 32.6 mg/mg 10-20 [facility] Laboratory - Hematology and Cell countsOrdered By: Saurabh Fernandez on 07-24-2023 Erythrocyte distribution width (RBC) [Entitic vol] 50.6 fL 35.1-43.9 [facility] Erythrocyte distribution width (RBC) [Ratio] 13.7 % 11.6-14.6 [facility] Immature granulocytes/100 WBC (Bld) 0.400 % 0.0-0.9 [facility] Comment on above: IG% - Immature Granu locytes (promyelocytes, myelocytes and metamyelocytes) > 1% indicates that a LEFT SHIFT is Present. MCH (RBC) [Entitic mass] 31.4 pg 27.0-32.0 [facility] Nucleated RBC/100 WBC (Bld) [Ratio] 0 % 0-5 [facility] MCHC Auto (RBC) [Mass/Vol]Or dered By: Saurabh Fernandez on 07-24-2023 MCHC (RBC) [Mass/Vol] 31.3 g/dL 32-36 [facility] No Panel InformationOrdered By: Saurabh Fernandez on 07-24-2023 Estimated GFR (MDRD) Amer 82 mL/min >60 [facility] Comment on above: GFR Calc Estimated GFR (MDRD) Non-Af Amer 67 mL/min >60 [facility] Comment on above: Non- GFR Calc Thyroid Stimulating Hormone (TSH) 1.79 uIU/mL 0.358-3.74 [facility] Platelets bldOrdered By: Ambreen Fernandez on 07-24-2023 Platelets (Bld) [#/Vol] 191 10*3/uL 150-450 [facility] Serum or plasma albumin tyrese urement (mass/volume)Ordered By: Saurabh Fernandez on 07-24-2023 Albumin [Mass/Vol] 2.5 g/dL 3.2-5.0 [facility] Serum or plasma albumin/glob ulin mass ratioOrdered By: Saurabh Fernandez on 07-24-2023 Albumin/Globulin [Mass ratio] 0.6 {ratio} 0.9-2.4 [facility] Serum or plasma calcium tyrese urement (mass/volume)Ordered By: Saurabh Fernandez on 07-24-2023 Calcium [Mass/Vol] 8.3 mg/dL 8.5-10.1 [facility] Serum or plasma cholesterol in HDL measurement (mass/volume)Ordered By: Saurabh Fernandez on 07-24-2023 Cholesterol in HDL [Mass/Vol] 45 mg/dL >40 [facility] Comment on above: The drugs N-Acetylcy steine and Metamizole may falsely depress this assay. Reference Range HDL <40 mg/dL Low HDL Cholesterol HDL >or= 60 mg/dL High HDL Cholesterol Serum or plasma cholesterol in VLDL measurement (mass/volume)Ordered By: Saurabh Fernandez on 07-24-2023 Cholesterol in VLDL [Mass/Vol] 27 mg/dL 5-40 [facility] Serum or plasma creatinine m easurement (mass/volume)Ordered By: Saurabh Fernandez on 07-24-2023 Creatinine [Mass/Vol] 0.86 mg/dL 0.55-1.02 [facility] Comment on above: The validity of the calculated GFR & GFRAA in patients over 70 years has not been determined. Clinical correlation is essential. Serum or plasma low density lipoprotein (LDL) cholesterol measurement (mass/volume)Ordered By: Saurabh Fernandez on 07-24-2023 Cholesterol in LDL [Mass/Vol] 117 mg/dL 0-130 [facility] Serum or plasma urea nitroge n measurement (mass/volume)Ordered By: Saurabh Fernandez on 07-24-2023 Urea nitrogen [Mass/Vol] 28 mg/dL 7-18 [facility] Thin prep Papanicolaou smear with manual screeningOrdered By: Saurabh Fernandez on 07-24-2023 Thin prep Papanicolaou smear with manual screening 19 U/L 15-37 [facility] Thin prep Papanicolaou smear with manual screening 2 5-15 [facility] No Panel InformationOrdered By: Saurabh Fernandez on 06-30-2023 Valproic Acid (Depakene) Level 33 ug/mL 50-100 [facility] Absolute lymphocyte countOrd ered By: Saurabh Fernandez on 05-01-2023 Lymphocytes Auto (Unsp spec) [#/Vol] 3.15 10*3/uL 0.83-4.51 [facility] Basophil percentageOrdered B y: Saurabh Fernandez on 05-01-2023 Basophils/100 WBC (Bld) 0.6 % 0-1 [facility] Bilirubin [Mass/Vol] 0.50 mg/dL 0.20-1.00 [facility] Comment on above: For patients on eltr ombopag therapy, use of Dimension [place] TBIL is not recommended. Chloride [Moles/Vol] 108 mmol/L 98-107 [facility] Cholesterol [Mass/Vol] 205 mg/dL <200 [facility] Comment on above: <200 mg/dL Desirable 200-240 mg/dL Borderline >240 mg/dL High Risk Eosinophils/100 WBC (Bld) 3.6 % 0-5 [facility] Glucose [Mass/Vol] 90 mg/dL 74-106 [facility] Neutrophils (Bld) [#/Vol] 3.1 10*3/uL 2.0-7.7 [facility] Neutrophils/100 WBC (Bld) 42.3 % 47-70 [facility] Potassium [Moles/Vol] 4.5 mmol/L 3.5-5.1 [facility] Protein [Mass/Vol] 7.2 g/dL 6.4-8.2 [facility] Sodium [Moles/Vol] 142 mmol/L 136-145 [facility] Triglyceride [Mass/Vol] 160 mg/dL <199 [facility] Comment on above: The drugs N-Acetylcy steine and Metamizole may falsely depress this assay.Serum Triglycerides Reference Interval Normal <150 mg/dL Borderline high 150 - 199 mg/dL High 200 - 499 mg/dL Very High > or = 500 mg/dL WBC (Bld) [#/Vol] 7.3 10*3/uL 4.4-11.0 [facility] Blood erythrocytes count (nu mber/volume)Ordered By: Saurabh Fernandez on 05-01-2023 RBC (Bld) [#/Vol] 4.82 10*6/uL 4.2-5.4 [facility] Blood hemoglobin measurement (mass/volume)Ordered By: Saurabh Fernandez on 05-01-2023 Hemoglobin (Bld) [Mass/Vol] 15.1 g/dL 12.0-15.0 [facility] Blood lymphocytes/100 leukoc ytesOrdered By: Saurabh Fernandez on 05-01-2023 Lymphocytes/100 WBC (Bld) 43.3 % 19-41 [facility] Blood monocytes/100 leukocyt esOrdered By: Saurabh Fernandez on 05-01-2023 Monocytes/100 WBC (Bld) 9.5 % 0-10 [facility] Blood platelet mean volumeOr dered By: Saurabh Fernandez on 05-01-2023 Platelet mean volume (Bld) [Entitic vol] 12.2 fL 6.2-12.0 [facility] Determination of erythrocyte mean corpuscular volume (MCV)Ordered By: Saurabh Fernandez on 05-01-2023 MCV (RBC) [Entitic vol] 100.2 fL 81-99 [facility] Hematocrit Auto (Bld) [Volum e fraction]Ordered By: Saurabh Fernandez on 05-01-2023 Hematocrit (Bld) [Volume fraction] 48.3 % 37-47 [facility] Laboratory - Chemistry and C hemistry - challengeOrdered By: Saurabh Fernandez on 05-01-2023 ALP [Catalytic activity/Vol] 71 U/L 45-117 [facility] ALT [Catalytic activity/Vol] 27 U/L 13-56 [facility] CO2 [Moles/Vol] 29.0 mmol/L 21.0-32.0 [facility] Globulin (S) [Mass/Vol] 4.3 g/dL 2.2-4.2 [facility] Urea nitrogen/Creatinine [Mass ratio] 29.5 mg/mg 10-20 [facility] Laboratory - Hematology and Cell countsOrdered By: Saurabh Fernandez on 05-01-2023 Erythrocyte distribution width (RBC) [Entitic vol] 50.1 fL 35.1-43.9 [facility] Erythrocyte distribution width (RBC) [Ratio] 13.4 % 11.6-14.6 [facility] Immature granulocytes/100 WBC (Bld) 0.700 % 0.0-0.9 [facility] Comment on above: IG% - Immature Granu locytes (promyelocytes, myelocytes and metamyelocytes) > 1% indicates that a LEFT SHIFT is Present. MCH (RBC) [Entitic mass] 31.3 pg 27.0-32.0 [facility] Nucleated RBC/100 WBC (Bld) [Ratio] 0 % 0-5 [facility] MCHC Auto (RBC) [Mass/Vol]Or dered By: Saurabh Fernandez on 05-01-2023 MCHC (RBC) [Mass/Vol] 31.3 g/dL 32-36 [facility] No Panel InformationOrdered By: Saurabh Fernandez on 05-01-2023 Estimated GFR (MDRD) Amer 60 mL/min >60 [facility] Comment on above: GFR Calc Estimated GFR (MDRD) Non-Af Amer 50 mL/min >60 [facility] Comment on above: Non- GFR Calc Thyroid Stimulating Hormone (TSH) 2.38 uIU/mL 0.358-3.74 [facility] Platelets bldOrdered By: Ambreen Fernandez on 05-01-2023 Platelets (Bld) [#/Vol] 181 10*3/uL 150-450 [facility] Serum or plasma albumin tyrese urement (mass/volume)Ordered By: Saurabh Fernandez on 05-01-2023 Albumin [Mass/Vol] 2.9 g/dL 3.2-5.0 [facility] Serum or plasma albumin/glob ulin mass ratioOrdered By: Saurabh Fernandez on 05-01-2023 Albumin/Globulin [Mass ratio] 0.7 {ratio} 0.9-2.4 [facility] Serum or plasma calcium tyrese urement (mass/volume)Ordered By: Saurabh Fernandez on 05-01-2023 Calcium [Mass/Vol] 9.0 mg/dL 8.5-10.1 [facility] Serum or plasma cholesterol in HDL measurement (mass/volume)Ordered By: Saurabh Fernandez on 05-01-2023 Cholesterol in HDL [Mass/Vol] 53 mg/dL >40 [facility] Comment on above: The drugs N-Acetylcy steine and Metamizole may falsely depress this assay. Reference Range HDL <40 mg/dL Low HDL Cholesterol HDL >or= 60 mg/dL High HDL Cholesterol Serum or plasma cholesterol in VLDL measurement (mass/volume)Ordered By: Saurabh Fernandez on 05-01-2023 Cholesterol in VLDL [Mass/Vol] 32 mg/dL 5-40 [facility] Serum or plasma creatinine m easurement (mass/volume)Ordered By: Saurabh Fernandez on 05-01-2023 Creatinine [Mass/Vol] 1.12 mg/dL 0.55-1.02 [facility] Comment on above: The validity of the calculated GFR & GFRAA in patients over 70 years has not been determined. Clinical correlation is essential. Serum or plasma low density lipoprotein (LDL) cholesterol measurement (mass/volume)Ordered By: Saurabh Fernandez on 05-01-2023 Cholesterol in LDL [Mass/Vol] 120 mg/dL 0-130 [facility] Serum or plasma urea nitroge n measurement (mass/volume)Ordered By: Saurabh Fernandez on 05-01-2023 Urea nitrogen [Mass/Vol] 33 mg/dL 7-18 [facility] Thin prep Papanicolaou smear with manual screeningOrdered By: Saurabh Fernandez on 05-01-2023 Thin prep Papanicolaou smear with manual screening 21 U/L 15-37 [facility] Thin prep Papanicolaou smear with manual screening 5 5-15 [facility] No Panel InformationOrdered By: Saurabh Fernandez on 04-07-2023 Valproic Acid (Depakene) Level 29 ug/mL 50-100 [facility] Absolute lymphocyte countOrd ered By: Saurabh Fernandez on 02-06-2023 Lymphocytes Auto (Unsp spec) [#/Vol] 2.99 10*3/uL 0.83-4.51 [facility] Basophil percentageOrdered B y: Saurabh Fernandez on 02-06-2023 Basophils/100 WBC (Bld) 0.3 % 0-1 [facility] Bilirubin [Mass/Vol] 0.40 mg/dL 0.20-1.00 [facility] Comment on above: For patients on eltr ombopag therapy, use of Dimension [place] TBIL is not recommended. Chloride [Moles/Vol] 110 mmol/L 98-107 [facility] Cholesterol [Mass/Vol] 196 mg/dL <200 [facility] Comment on above: <200 mg/dL Desirable 200-240 mg/dL Borderline >240 mg/dL High Risk Eosinophils/100 WBC (Bld) 4.4 % 0-5 [facility] Glucose [Mass/Vol] 90 mg/dL 74-106 [facility] Neutrophils (Bld) [#/Vol] 2.9 10*3/uL 2.0-7.7 [facility] Neutrophils/100 WBC (Bld) 43.3 % 47-70 [facility] Potassium [Moles/Vol] 4.4 mmol/L 3.5-5.1 [facility] Protein [Mass/Vol] 6.2 g/dL 6.4-8.2 [facility] Sodium [Moles/Vol] 143 mmol/L 136-145 [facility] Triglyceride [Mass/Vol] 157 mg/dL <199 [facility] Comment on above: The drugs N-Acetylcy steine and Metamizole may falsely depress this assay.Serum Triglycerides Reference Interval Normal <150 mg/dL Borderline high 150 - 199 mg/dL High 200 - 499 mg/dL Very High > or = 500 mg/dL WBC (Bld) [#/Vol] 6.8 10*3/uL 4.4-11.0 [facility] Blood erythrocytes count (nu mber/volume)Ordered By: Saurabh Fernandez on 02-06-2023 RBC (Bld) [#/Vol] 4.40 10*6/uL 4.2-5.4 [facility] Blood hemoglobin measurement (mass/volume)Ordered By: Saurabh Fernandze on 02-06-2023 Hemoglobin (Bld) [Mass/Vol] 13.5 g/dL 12.0-15.0 [facility] Blood lymphocytes/100 leukoc ytesOrdered By: Saurabh Fernandez on 02-06-2023 Lymphocytes/100 WBC (Bld) 44.0 % 19-41 [facility] Blood monocytes/100 leukocyt esOrdered By: Saurabh Fernandez on 02-06-2023 Monocytes/100 WBC (Bld) 7.6 % 0-10 [facility] Blood platelet mean volumeOr dered By: Saurabh Fernandez on 02-06-2023 Platelet mean volume (Bld) [Entitic vol] 11.6 fL 6.2-12.0 [facility] Determination of erythrocyte mean corpuscular volume (MCV)Ordered By: Saurabh Fernandez on 02-06-2023 MCV (RBC) [Entitic vol] 100.0 fL 81-99 [facility] Hematocrit Auto (Bld) [Volum e fraction]Ordered By: Saurabh Fernandez on 02-06-2023 Hematocrit (Bld) [Volume fraction] 44.0 % 37-47 [facility] Laboratory - Chemistry and C hemistry - challengeOrdered By: Saurabh Fernandez on 02-06-2023 ALP [Catalytic activity/Vol] 63 U/L 45-117 [facility] ALT [Catalytic activity/Vol] 20 U/L 13-56 [facility] CO2 [Moles/Vol] 28.0 mmol/L 21.0-32.0 [facility] Globulin (S) [Mass/Vol] 3.8 g/dL 2.2-4.2 [facility] Urea nitrogen/Creatinine [Mass ratio] 25.0 mg/mg 10-20 [facility] Laboratory - Hematology and Cell countsOrdered By: Saurabh Fernandez on 02-06-2023 Erythrocyte distribution width (RBC) [Entitic vol] 51.3 fL 35.1-43.9 [facility] Erythrocyte distribution width (RBC) [Ratio] 13.9 % 11.6-14.6 [facility] Immature granulocytes/100 WBC (Bld) 0.400 % 0.0-0.9 [facility] Comment on above: IG% - Immature Granu locytes (promyelocytes, myelocytes and metamyelocytes) > 1% indicates that a LEFT SHIFT is Present. MCH (RBC) [Entitic mass] 30.7 pg 27.0-32.0 [facility] Nucleated RBC/100 WBC (Bld) [Ratio] 0 % 0-5 [facility] MCHC Auto (RBC) [Mass/Vol]Or dered By: Saurabh Fernandez on 02-06-2023 MCHC (RBC) [Mass/Vol] 30.7 g/dL 32-36 [facility] No Panel InformationOrdered By: Saurabh Fernandez on 02-06-2023 Estimated GFR (MDRD) Amer 84 mL/min >60 [facility] Comment on above: GFR Calc Estimated GFR (MDRD) Non-Af Amer 69 mL/min >60 [facility] Comment on above: Non- GFR Calc Thyroid Stimulating Hormone (TSH) 2.21 uIU/mL 0.358-3.74 [facility] Platelets bldOrdered By: Ambreen Fernandez on 02-06-2023 Platelets (Bld) [#/Vol] 204 10*3/uL 150-450 [facility] Serum or plasma albumin tyrese urement (mass/volume)Ordered By: Saurabh Fernandez on 02-06-2023 Albumin [Mass/Vol] 2.4 g/dL 3.2-5.0 [facility] Serum or plasma albumin/glob ulin mass ratioOrdered By: Saurabh Fernandez on 02-06-2023 Albumin/Globulin [Mass ratio] 0.6 {ratio} 0.9-2.4 [facility] Serum or plasma calcium tyrese urement (mass/volume)Ordered By: Saurabh Fernandez on 02-06-2023 Calcium [Mass/Vol] 8.2 mg/dL 8.5-10.1 [facility] Serum or plasma cholesterol in HDL measurement (mass/volume)Ordered By: Saurabh Fernandez on 02-06-2023 Cholesterol in HDL [Mass/Vol] 51 mg/dL >40 [facility] Comment on above: The drugs N-Acetylcy steine and Metamizole may falsely depress this assay. Reference Range HDL <40 mg/dL Low HDL Cholesterol HDL >or= 60 mg/dL High HDL Cholesterol Serum or plasma cholesterol in VLDL measurement (mass/volume)Ordered By: Saurabh Fernandez on 02-06-2023 Cholesterol in VLDL [Mass/Vol] 31 mg/dL 5-40 [facility] Serum or plasma creatinine m easurement (mass/volume)Ordered By: Saurabh Fernandez on 02-06-2023 Creatinine [Mass/Vol] 0.84 mg/dL 0.55-1.02 [facility] Comment on above: The validity of the calculated GFR & GFRAA in patients over 70 years has not been determined. Clinical correlation is essential. Serum or plasma low density lipoprotein (LDL) cholesterol measurement (mass/volume)Ordered By: Saurabh Fernandez on 02-06-2023 Cholesterol in LDL [Mass/Vol] 114 mg/dL 0-130 [facility] Serum or plasma urea nitroge n measurement (mass/volume)Ordered By: Saurabh Fernandez on 02-06-2023 Urea nitrogen [Mass/Vol] 21 mg/dL 7-18 [facility] Thin prep Papanicolaou smear with manual screeningOrdered By: Saurabh Fernandez on 02-06-2023 Thin prep Papanicolaou smear with manual screening 15 U/L 15-37 [facility] Thin prep Papanicolaou smear with manual screening 5 5-15 [facility] No Panel InformationOrdered By: Saurabh Fernandez on 01-13-2023 Valproic Acid (Depakene) Level 38 ug/mL 50-100 [facility] Absolute lymphocyte countOrd ered By: Saurabh Fernandez on 11-14-2022 Lymphocytes Auto (Unsp spec) [#/Vol] 2.82 10*3/uL 0.83-4.51 [facility] Basophil percentageOrdered B y: Saurabh Fernandez on 11-14-2022 Basophils/100 WBC (Bld) 0.3 % 0-1 [facility] Bilirubin [Mass/Vol] 0.40 mg/dL 0.20-1.00 [facility] Comment on above: For patients on eltr ombopag therapy, use of Dimension [place] TBIL is not recommended. Chloride [Moles/Vol] 111 mmol/L 98-107 [facility] Cholesterol [Mass/Vol] 179 mg/dL <200 [facility] Comment on above: <200 mg/dL Desirable 200-240 mg/dL Borderline >240 mg/dL High Risk Eosinophils/100 WBC (Bld) 3.6 % 0-5 [facility] Glucose [Mass/Vol] 77 mg/dL 74-106 [facility] Neutrophils (Bld) [#/Vol] 6.6 10*3/uL 2.0-7.7 [facility] Neutrophils/100 WBC (Bld) 61.7 % 47-70 [facility] Potassium [Moles/Vol] 4.2 mmol/L 3.5-5.1 [facility] Protein [Mass/Vol] 6.4 g/dL 6.4-8.2 [facility] Sodium [Moles/Vol] 145 mmol/L 136-145 [facility] Triglyceride [Mass/Vol] 124 mg/dL <199 [facility] Comment on above: The drugs N-Acetylcy steine and Metamizole may falsely depress this assay.Serum Triglycerides Reference Interval Normal <150 mg/dL Borderline high 150 - 199 mg/dL High 200 - 499 mg/dL Very High > or = 500 mg/dL WBC (Bld) [#/Vol] 10.7 10*3/uL 4.4-11.0 [facility] Blood erythrocytes count (nu mber/volume)Ordered By: Saurabh Fernandez on 11-14-2022 RBC (Bld) [#/Vol] 4.11 10*6/uL 4.2-5.4 [facility] Blood hemoglobin measurement (mass/volume)Ordered By: Saurabh Fernandez on 11-14-2022 Hemoglobin (Bld) [Mass/Vol] 12.7 g/dL 12.0-15.0 [facility] Blood lymphocytes/100 leukoc ytesOrdered By: Saurabh Fernandez on 11-14-2022 Lymphocytes/100 WBC (Bld) 26.4 % 19-41 [facility] Blood monocytes/100 leukocyt esOrdered By: Saurabh Fernandez on 11-14-2022 Monocytes/100 WBC (Bld) 7.6 % 0-10 [facility] Blood platelet mean volumeOr dered By: Saurabh Fernandez on 11-14-2022 Platelet mean volume (Bld) [Entitic vol] 11.6 fL 6.2-12.0 [facility] Determination of erythrocyte mean corpuscular volume (MCV)Ordered By: Saurabh Fernandez on 11-14-2022 MCV (RBC) [Entitic vol] 99.5 fL 81-99 [facility] Hematocrit Auto (Bld) [Volum e fraction]Ordered By: Saurabh Fernandez on 11-14-2022 Hematocrit (Bld) [Volume fraction] 40.9 % 37-47 [facility] Laboratory - Chemistry and C hemistry - challengeOrdered By: Saurabh Fernandez on 11-14-2022 ALP [Catalytic activity/Vol] 70 U/L 45-117 [facility] ALT [Catalytic activity/Vol] 22 U/L 13-56 [facility] CO2 [Moles/Vol] 29.0 mmol/L 21.0-32.0 [facility] Globulin (S) [Mass/Vol] 3.9 g/dL 2.2-4.2 [facility] Urea nitrogen/Creatinine [Mass ratio] 25.1 mg/mg 10-20 [facility] Laboratory - Hematology and Cell countsOrdered By: Saurabh Fernandez on 11-14-2022 Erythrocyte distribution width (RBC) [Entitic vol] 52.2 fL 35.1-43.9 [facility] Erythrocyte distribution width (RBC) [Ratio] 14.3 % 11.6-14.6 [facility] Immature granulocytes/100 WBC (Bld) 0.400 % 0.0-0.9 [facility] Comment on above: IG% - Immature Granu locytes (promyelocytes, myelocytes and metamyelocytes) > 1% indicates that a LEFT SHIFT is Present. MCH (RBC) [Entitic mass] 30.9 pg 27.0-32.0 [facility] Nucleated RBC/100 WBC (Bld) [Ratio] 0 % 0-5 [facility] MCHC Auto (RBC) [Mass/Vol]Or dered By: Saurabh Fernandez on 11-14-2022 MCHC (RBC) [Mass/Vol] 31.1 g/dL 32-36 [facility] No Panel InformationOrdered By: Saurabh Fernandez on 11-14-2022 Estimated GFR (MDRD) Amer 84 mL/min >60 [facility] Comment on above: GFR Calc Estimated GFR (MDRD) Non-Af Amer 70 mL/min >60 [facility] [facility] Comment on above: Non- GFR Calc Thyroid Stimulating Hormone (TSH) 3.57 uIU/mL 0.358-3.74 [facility] Platelets bldOrdered By: Ambreen Fernandez on 11-14-2022 Platelets (Bld) [#/Vol] 209 10*3/uL 150-450 [facility] Serum or plasma albumin tyrese urement (mass/volume)Ordered By: Saurabh Fernandez on 11-14-2022 Albumin [Mass/Vol] 2.5 g/dL 3.2-5.0 [facility] Serum or plasma albumin/glob ulin mass ratioOrdered By: Saurabh Fernandez on 11-14-2022 Albumin/Globulin [Mass ratio] 0.6 {ratio} 0.9-2.4 [facility] Serum or plasma calcium tyrese urement (mass/volume)Ordered By: Saurabh Fernandez on 11-14-2022 Calcium [Mass/Vol] 8.5 mg/dL 8.5-10.1 [facility] Serum or plasma cholesterol in HDL measurement (mass/volume)Ordered By: Saurabh Fernandez on 11-14-2022 Cholesterol in HDL [Mass/Vol] 48 mg/dL >40 [facility] Comment on above: The drugs N-Acetylcy steine and Metamizole may falsely depress this assay. Reference Range HDL <40 mg/dL Low HDL Cholesterol HDL >or= 60 mg/dL High HDL Cholesterol Serum or plasma cholesterol in VLDL measurement (mass/volume)Ordered By: Saurabh Fernandez on 11-14-2022 Cholesterol in VLDL [Mass/Vol] 25 mg/dL 5-40 [facility] Serum or plasma creatinine m easurement (mass/volume)Ordered By: Saurabh Fernandez on 11-14-2022 Creatinine [Mass/Vol] 0.84 mg/dL 0.55-1.02 [facility] Comment on above: The validity of the calculated GFR & GFRAA in patients over 70 years has not been determined. Clinical correlation is essential. Serum or plasma low density lipoprotein (LDL) cholesterol measurement (mass/volume)Ordered By: Saurabh Fernandez on 11-14-2022 Cholesterol in LDL [Mass/Vol] 106 mg/dL 0-130 [facility] Serum or plasma urea nitroge n measurement (mass/volume)Ordered By: Saurabh Fernandez on 11-14-2022 Urea nitrogen [Mass/Vol] 21 mg/dL 7-18 [facility] Thin prep Papanicolaou smear with manual screeningOrdered By: Saurabh Fernandez on 11-14-2022 Thin prep Papanicolaou smear with manual screening 21 U/L 15-37 [facility] Thin prep Papanicolaou smear with manual screening 5 5-15 [facility] No Panel InformationOrdered By: Saurabh Fernandez on 10-21-2022 Valproic Acid (Depakene) Level 31 ug/mL 50-100 [facility] Progress Noteon 08-28-2022 Progress Note Patient with [...] to 10 mg daily for prophylaxis Normal [facility] Absolute lymphocyte countOrd ered By: Harpal James on 08-23-2022 Lymphocytes Auto (Unsp spec) [#/Vol] 2.14 10*3/uL 0.83-4.51 [facility] Basophil percentageOrdered B y: Harpal Ramirez on 08-23-2022 Basophils/100 WBC (Bld) 0.6 % 0-1 [facility] Eosinophils/100 WBC (Bld) 4.1 % 0-5 [facility] Neutrophils (Bld) [#/Vol] 3.5 10*3/uL 2.0-7.7 [facility] Neutrophils/100 WBC (Bld) 53.2 % 47-70 [facility] WBC (Bld) [#/Vol] 6.6 10*3/uL 4.4-11.0 [facility] Blood erythrocytes count (nu mber/volume)Ordered By: Harpal Ramirez on 08-23-2022 RBC (Bld) [#/Vol] 3.84 10*6/uL 4.2-5.4 [facility] Blood hemoglobin measurement (mass/volume)Ordered By: Harpal Ramirez on 08-23-2022 Hemoglobin (Bld) [Mass/Vol] 11.7 g/dL 12.0-15.0 [facility] Blood lymphocytes/100 leukoc ytesOrdered By: Harpal Ramirez on 08-23-2022 Lymphocytes/100 WBC (Bld) 32.5 % 19-41 [facility] Blood monocytes/100 leukocyt esOrdered By: Harpal Ramirez on 08-23-2022 Monocytes/100 WBC (Bld) 9.1 % 0-10 [facility] Blood platelet mean volumeOr dered By: Harpal Ramirez on 08-23-2022 Platelet mean volume (Bld) [Entitic vol] 11.5 fL 6.2-12.0 [facility] Determination of erythrocyte mean corpuscular volume (MCV)Ordered By: Harpal Ramirez on 08-23-2022 MCV (RBC) [Entitic vol] 96.6 fL 81-99 [facility] Hematocrit Auto (Bld) [Volum e fraction]Ordered By: Harpal Ramirez on 08-23-2022 Hematocrit (Bld) [Volume fraction] 37.1 % 37-47 [facility] Laboratory - Hematology and Cell countsOrdered By: Harpal Ramirez on 08-23-2022 Erythrocyte distribution width (RBC) [Entitic vol] 50.7 fL 35.1-43.9 [facility] Erythrocyte distribution width (RBC) [Ratio] 14.4 % 11.6-14.6 [facility] Immature granulocytes/100 WBC (Bld) 0.500 % 0.0-0.9 [facility] Comment on above: IG% - Immature Granu locytes (promyelocytes, myelocytes and metamyelocytes) > 1% indicates that a LEFT SHIFT is Present. MCH (RBC) [Entitic mass] 30.5 pg 27.0-32.0 [facility] Nucleated RBC/100 WBC (Bld) [Ratio] 0 % 0-5 [facility] MCHC Auto (RBC) [Mass/Vol]Or dered By: Harpal Ramirez on 08-23-2022 MCHC (RBC) [Mass/Vol] 31.5 g/dL 32-36 [facility] Platelets bldOrdered By: Kanu rogerse James on 08-23-2022 Platelets (Bld) [#/Vol] 226 10*3/uL 150-450 [facility] 36on 08-22-2022 36 Last seen:11/28/21 [facility] Basophil percentageOrdered B y: Harpal Ramirez on 08-22-2022 Bilirubin [Mass/Vol] 0.60 mg/dL 0.20-1.00 [facility] Comment on above: For patients on eltr ombopag therapy, use of Dimension [place] TBIL is not recommended. Chloride [Moles/Vol] 105 mmol/L 98-107 [facility] Cholesterol [Mass/Vol] 189 mg/dL <200 [facility] Comment on above: <200 mg/dL Desirable 200-240 mg/dL Borderline >240 mg/dL High Risk Glucose [Mass/Vol] 83 mg/dL 74-106 [facility] Potassium [Moles/Vol] 4.1 mmol/L 3.5-5.1 [facility] Protein [Mass/Vol] 7.6 g/dL 6.4-8.2 [facility] Sodium [Moles/Vol] 140 mmol/L 136-145 [facility] Triglyceride [Mass/Vol] 121 mg/dL <199 [facility] Comment on above: The drugs N-Acetylcy steine and Metamizole may falsely depress this assay.Serum Triglycerides Reference Interval Normal <150 mg/dL Borderline high 150 - 199 mg/dL High 200 - 499 mg/dL Very High > or = 500 mg/dL Laboratory - Chemistry and C hemistry - challengeOrdered By: Harpal Ramirez on 08-22-2022 ALP [Catalytic activity/Vol] 75 U/L 45-117 [facility] ALT [Catalytic activity/Vol] 28 U/L 13-56 [facility] CO2 [Moles/Vol] 30.0 mmol/L 21.0-32.0 [facility] Globulin (S) [Mass/Vol] 4.5 g/dL 2.2-4.2 [facility] Urea nitrogen/Creatinine [Mass ratio] 28.4 mg/mg 10-20 [facility] No Panel InformationOrdered By: Harpal Ramirez on 08-22-2022 Estimated GFR (MDRD) Amer 70 mL/min >60 [facility] Comment on above: GFR Calc Estimated GFR (MDRD) Non-Af Amer 58 mL/min >60 [facility] Comment on above: Non- GFR Calc Thyroid Stimulating Hormone (TSH) 2.50 uIU/mL 0.358-3.74 [facility] Serum or plasma albumin tyrese urement (mass/volume)Ordered By: Harpal Ramirez on 08-22-2022 Albumin [Mass/Vol] 3.1 g/dL 3.2-5.0 [facility] Serum or plasma albumin/glob ulin mass ratioOrdered By: Harpal Ramirez on 08-22-2022 Albumin/Globulin [Mass ratio] 0.7 {ratio} 0.9-2.4 [facility] Serum or plasma calcium tyrese urement (mass/volume)Ordered By: Harpal Ramirez on 08-22-2022 Calcium [Mass/Vol] 9.1 mg/dL 8.5-10.1 [facility] Serum or plasma cholesterol in HDL measurement (mass/volume)Ordered By: Harpal Ramirez on 08-22-2022 Cholesterol in HDL [Mass/Vol] 62 mg/dL >40 [facility] Comment on above: The drugs N-Acetylcy steine and Metamizole may falsely depress this assay. Reference Range HDL <40 mg/dL Low HDL Cholesterol HDL >or= 60 mg/dL High HDL Cholesterol Serum or plasma cholesterol in VLDL measurement (mass/volume)Ordered By: Harpal Ramirez on 08-22-2022 Cholesterol in VLDL [Mass/Vol] 24 mg/dL 5-40 [facility] Serum or plasma creatinine m easurement (mass/volume)Ordered By: Harpal Ramirez on 08-22-2022 Creatinine [Mass/Vol] 0.98 mg/dL 0.55-1.02 [facility] Comment on above: The validity of the calculated GFR & GFRAA in patients over 70 years has not been determined. Clinical correlation is essential. Serum or plasma low density lipoprotein (LDL) cholesterol measurement (mass/volume)Ordered By: Harpal Ramirez on 08-22-2022 Cholesterol in LDL [Mass/Vol] 103 mg/dL 0-130 [facility] Serum or plasma urea nitroge n measurement (mass/volume)Ordered By: Harpal Ramirez on 08-22-2022 Urea nitrogen [Mass/Vol] 28 mg/dL 7-18 [facility] Thin prep Papanicolaou smear with manual screeningOrdered By: Harpal Ramirez on 08-22-2022 Thin prep Papanicolaou smear with manual screening 19 U/L 15-37 [facility] Thin prep Papanicolaou smear with manual screening 5 5-15 [facility] No Panel InformationOrdered By: Harpal Ramirez on 07-29-2022 Valproic Acid (Depakene) Level 38 ug/mL 50-100 [facility] Absolute lymphocyte countOrd ered By: Harpal Ramirez on 07-24-2022 Lymphocytes Auto (Unsp spec) [#/Vol] 2.39 10*3/uL 0.83-4.51 [facility] Basophil percentageOrdered B y: Hapral Ramirez on 07-24-2022 Basophils/100 WBC (Bld) 1.0 % 0-1 [facility] Chloride [Moles/Vol] 112 mmol/L 98-107 [facility] Eosinophils/100 WBC (Bld) 9.2 % 0-5 [facility] Glucose [Mass/Vol] 77 mg/dL 74-106 [facility] Neutrophils (Bld) [#/Vol] 2.3 10*3/uL 2.0-7.7 [facility] Neutrophils/100 WBC (Bld) 39.3 % 47-70 [facility] Potassium [Moles/Vol] 4.3 mmol/L 3.5-5.1 [facility] Comment on above: Slight Hemolysis, Re sult may be falsely increased. Sodium [Moles/Vol] 142 mmol/L 136-145 [facility] WBC (Bld) [#/Vol] 5.7 10*3/uL 4.4-11.0 [facility] Blood erythrocytes count (nu mber/volume)Ordered By: Harpal Ramirez on 07-24-2022 RBC (Bld) [#/Vol] 4.17 10*6/uL 4.2-5.4 [facility] Blood hemoglobin measurement (mass/volume)Ordered By: Harpal Ramirez on 07-24-2022 Hemoglobin (Bld) [Mass/Vol] 13.1 g/dL 12.0-15.0 [facility] Blood lymphocytes/100 leukoc ytesOrdered By: Harpal Ramirez on 07-24-2022 Lymphocytes/100 WBC (Bld) 41.6 % 19-41 [facility] Blood monocytes/100 leukocyt esOrdered By: Harpal Ramirez on 07-24-2022 Monocytes/100 WBC (Bld) 8.4 % 0-10 [facility] Blood platelet mean volumeOr dered By: Harpal Ramirez on 07-24-2022 Platelet mean volume (Bld) [Entitic vol] 11.5 fL 6.2-12.0 [facility] Determination of erythrocyte mean corpuscular volume (MCV)Ordered By: Harpal Ramirez on 07-24-2022 MCV (RBC) [Entitic vol] 99.0 fL 81-99 [facility] Hematocrit Auto (Bld) [Volum e fraction]Ordered By: Harpal Ramirez on 07-24-2022 Hematocrit (Bld) [Volume fraction] 41.3 % 37-47 [facility] Laboratory - Chemistry and C hemistry - challengeOrdered By: Harpal Ramirez on 07-24-2022 CO2 [Moles/Vol] 25.0 mmol/L 21.0-32.0 [facility] Urea nitrogen/Creatinine [Mass ratio] 24.3 mg/mg 10-20 [facility] Laboratory - Hematology and Cell countsOrdered By: Harpal Ramirez on 07-24-2022 Erythrocyte distribution width (RBC) [Entitic vol] 54.2 fL 35.1-43.9 [facility] Erythrocyte distribution width (RBC) [Ratio] 14.8 % 11.6-14.6 [facility] Immature granulocytes/100 WBC (Bld) 0.500 % 0.0-0.9 [facility] Comment on above: IG% - Immature Granu locytes (promyelocytes, myelocytes and metamyelocytes) > 1% indicates that a LEFT SHIFT is Present. MCH (RBC) [Entitic mass] 31.4 pg 27.0-32.0 [facility] Nucleated RBC/100 WBC (Bld) [Ratio] 0 % 0-5 [facility] MCHC Auto (RBC) [Mass/Vol]Or dered By: Harpal Ramirez on 07-24-2022 MCHC (RBC) [Mass/Vol] 31.7 g/dL 32-36 [facility] No Panel InformationOrdered By: Harpal Ramirez on 07-24-2022 Estimated GFR (MDRD) Amer 66 mL/min >60 [facility] Comment on above: GFR Calc Estimated GFR (MDRD) Non-Af Amer 55 mL/min >60 [facility] Comment on above: Non- GFR Calc Thyroid Stimulating Hormone (TSH) 2.63 uIU/mL 0.358-3.74 [facility] Platelets bldOrdered By: Kanu Ramirez on 07-24-2022 Platelets (Bld) [#/Vol] 201 10*3/uL 150-450 [facility] Progress Noteon 07-24-2022 Progress Note See Scanned Progress Notes Normal [facility] Serum or plasma calcium tyrese urement (mass/volume)Ordered By: Harpal Ramirez on 07-24-2022 Calcium [Mass/Vol] 8.5 mg/dL 8.5-10.1 [facility] Serum or plasma creatinine m easurement (mass/volume)Ordered By: Harpal Ramirez on 07-24-2022 Creatinine [Mass/Vol] 1.03 mg/dL 0.55-1.02 [facility] Comment on above: The validity of the calculated GFR & GFRAA in patients over 70 years has not been determined. Clinical correlation is essential. Serum or plasma urea nitroge n measurement (mass/volume)Ordered By: Harpal Ramirez on 07-24-2022 Urea nitrogen [Mass/Vol] 25 mg/dL 7-18 [facility] Thin prep Papanicolaou smear with manual screeningOrdered By: Harpal Ramirez on 07-24-2022 Thin prep Papanicolaou smear with manual screening 5 5-15 [facility] CASE MANAGEMon 06-24-2022 CASE MANAGEM HNO ID: [id number] Author: LATRICE Munoz Service: Social Work Author Type: Tool Turret Lathe Set Up Operator Type: Care Mgt Progress Note Filed: 06/24/2022 1:34 PM Note Text: BEHAVIORAL HEALTH SOCIAL WORK DISCHARGE NOTE SERVICE DATE: 06/24/2022 SERVICE TIME: 10:30 am Discharge Information Row Name Admission (Current) from 06/06/2022 in [facility] Psychiatry Follow-Up Appointment Psychiatrist Name Pt to be followed at facility Guardian/Surrogate Decision Maker Name Daughter Jennifer Hidalgo is POA Discharge Disposition Discharge Disposition Chcf Chcf Referral Information Agency Name [facility] Address [address] , [place] [address] Additional Discharge Information Additional Discharge Resources Jeana: [phone] Patient/Informix Developer Agreeable With Discharge Plan: Yes FREEDOM OF CHOICE EXPLAINED? Yes. A list of appropriate referrals presented to/discussed with POA on 06/07/22 at 1200 Patient/Informix Developer Given/Explained Medicare Discharge Notice (IM letter): Yes (Date and Time): 06/06/22 at 11:55 am TRANSPORTATION ARRANGEMENTS: Mode of Transportation: Ambulance Transportation Agency and Phone #: [facility] [phone] . Date of Trip: 06/24/22 Type of Service: BLS Non-emergency Is Patient Medicaid Pending: No PRESCRIPTIONS FILLED PRIOR TO DISCHARGE: No, patient discharged to senior care ADDITIONAL NOTES: SW discussed Pt in treatment team and observed her on unit. No acute safety concerns at this time, no SI/HI/SIB or AVH. Family is aware and agreeable to discharge plan above. No further SW intervention required, per MD Pt is adequate for discharge. SIGNATURE: LATRICE Munoz PATIENT NAME: Chay Teague DATE: June 24, 2022 TIME: 11:00 AM Normal [facility] CNDSon 06-24-2022 CNDS HNO ID: [id number] Author: John Penny MD Service: Psychiatry Author [...] performed Hospital Course: Patient was admitted to [facility] after she appeared to [facility] for wandering behavior; behavioral disturbances; was found to suffer UTI, received IV Rocephin. Patient brought in from home by family for confusion, suffered frontal lobe dementia and multiple medical problems, countdown to suffer UTI. Daughter brought the patient to the ED. Daughter is power of air bag buffer after she contacted by the local police [...] she is on a waiting list for [facility]. 06/07/2022 Seen in day area Said she feels okay Disoriented Pleasant during the interview 06/08/2022een in day area Confused 06/09/2022atient is compliant with medications No adverse reactions to medications Sleep is good 5 hrs Appetite is good 06/10/2022 in day area Euphoric singing with TV music disinhibited 06/11/2022 in day area Confused PMA 06/12/2022 in day area insomnia 06/13/2022 in room Hypomanic Irritable Still symptomatic requires [...] Patient Condition @ Discharge: Stable Discharge Disposition: Halfway Facility Complications: None ASSESSMENT: The status of [...] (Oral) Resp 18 (more content not included)... [facility] NURSING PROGon 06-24-2022 NURSING PROG O ID: [id number] Author: Robyn Roman RN Service: ? Author Type: Registered Nurse Type: Nursing Progress Note Filed: 06/24/2022 2:21 PM Note Text: Daily Note: Pt in day area at change of shift, meal and medication compliant. She will be discharged today, marketing writer attempted multiple time to call facility however was left on hold then disconnected. Broset Score-0 [facility] NURSING PROG HNO ID: [id number] Author: Zelda Serrano RN Service: Behavioral Health Author Type: Registered Nurse Type: Nursing Progress Note Filed: 06/24/2022 6:19 AM Note Text: Other: Pt is resting quietly in bed; monitor for safety q 15 min. Broset 1 0600 pt slept 7 hrs [facility]: [id number] Author: Albert Bryan RN Service: Behavioral Health [...] 15 minutes rounds observed at all times. [facility] NURSING PROGon [facility]23[facility]2022 [facility]: [id number] Author: Wesley Espinal RN Service: Nursing Author [...] pleasant. Broset:2 Q15 minute safety checks maintained [facility] NURSING PROG HNO ID: [id number] Author: Albert Bryan RN Service: Behavioral Health [...] calm and pleasant. Will continue to monitor. [facility] NURSING PROGon 06-22-2022 NURSING PROG HNO ID: [id number] Author: Robyn Roman RN Service: ? Author Type: Registered Nurse Type: Nursing Progress Note Filed: 06/22/2022 6:44 PM Note Text: Daily Note: Pt in bed at change of shift,meal and medication compliant, pt behavior is in control for most of the shift, she has been yelling out but easily redirectable. Broset Score-0 [facility] NURSING PROG HNO ID: [id number] Author: Mar Barros RN Service: Nursing Author [...] area reading a magazine, in good spirits. [facility] CASE MANAGEMon 06-21-2022 CASE MANAGEM HNO ID: [id number] Author: LATRICE Munoz Service: Social Work Author Type: Tool Turret Lathe Set Up Operator Type: Care Mgt Progress Note Filed: 06/21/2022 1:20 PM Note Text: BEHAVIORAL HEALTH SOCIAL WORK PROGRESS NOTE SERVICE DATE: 06/21/2022 SERVICE TIME: 1320 Pt is scheduled for discharge on Friday06/24/22 to [facility]. Transport is scheduled for 2:00 pm via [facility] (trip #[id number]). Pt will need LOC and SW to submit for one on Friday morning prior to discharge. SW to follow. SIGNATURE: LATRICE Munoz PATIENT NAME: Chay Teague DATE: June 21, 2022 TIME: 8:53 AM [facility] NURSING PROGon 06-21-2022 NURSING PROG HNO ID: [id number] Author: Teo López RN Service: Behavioral Health [...] 15 min safety checks maintained. Will monitor. [facility] NURSING PROG HNO ID: [id number] Author: Taylor North RN Service: Nursing Author Type: Registered Nurse Type: Nursing Progress Note Filed: 06/21/2022 7:06 AM Note Text: Nursing Progress Note Patient Name: Chay Teague Patient Location: [id number] - Daily Note: Received report and assumed [...] This note was completed by: Taylor North [facility] CASE MANAGEMon 06-20-2022 CASE MANAGEM HNO ID: [id number] Author: LATRICE Munoz Service: Social Work Author Type: Tool Turret Lathe Set Up Operator Type: Care Mgt Progress Note Filed: 06/20/2022 2:18 PM Note Text: BEHAVIORAL HEALTH SOCIAL WORK PROGRESS NOTE SERVICE DATE: 06/20/2022 SERVICE TIME: 1:30 pm SW faxed updates to [facility] and spoke to associate director of development Estephania on the phone to notify of plan for discharge on Friday. SW to confirm discharge projection and schedule transportation. SW to follow. SIGNATURE: LATRICE Munoz PATIENT NAME: Chay Teague DATE: June 20, 2022 TIME: 2:17 PM [facility] NURSING PROGon 06-20-2022 NURSING PROG HNO ID: [id number] Author: Melisa Peña RN Service: Behavioral Health [...] cooperative with hands on care. Will monitor [facility] NURSING PROG HNO ID: [id number] Author: Zelda Serrano RN Service: Behavioral Health [...] am care completed then pt resumed sleeping. [facility] NURSING PROG HNO ID: [id number] Author: Nakul Allan RN Service: ? Author Type: Registered Nurse Type: Nursing Progress Note Filed: 06/19/2022 10:56 PM Note Text: Assumed care of patient at 1530. Patient denies pain, SI/HI/AVH. Patient at 2000 complaining of pain and wanting her medications. Gave patient medications and tylenol. At 2100 patient put into bed and is denying patient. Patient began hitting the side of her bed and yelling out the names of family members very loudly and attempting to ambulate unassisted. Patient taken back out into the day area for closer observation. No additional issues at this time. [facility] NURSING PROGon 06-19-2022 NURSING PROG HNO ID: [id number] Author: Teo López RN Service: Behavioral Health [...] continence. Assist x1 for ambulation. Pt is MENTASTA. Pt medication compliant whole with applesauce constant encouragement. No behavioral issues noted at this moment. No agitation noted. 15 min safety checks maintained. Will monitor [facility] NURSING PROG HNO ID: [id number] Author: Vitaliy Basurto RN Service: Nursing Author Type: Registered Nurse Type: Nursing Progress Note Filed: 06/19/2022 7:58 AM Note Text: Other: 2100 Pt was seen awake and pleasant upon approach sitting in a christine-chair in the day area but a little irritable when vital signs were taken. Pt is confused, MENTASTA and needs constant cuing and encouragement with [...] after diaper changed. 0700 Slept 7 hrs. [facility] CASE MANAGEMon 06-18-2022 CASE MANAGEM HNO ID: [id number] Author: LATRICE Munoz Service: Social Work Author Type: Tool Turret Lathe Set Up Operator Type: Care Mgt Progress Note Filed: 06/18/2022 10:50 AM Note Text: BEHAVIORAL HEALTH SOCIAL WORK PROGRESS NOTE SERVICE DATE: 06/18/2022 SERVICE TIME: 0900 SW provided update to Pt's daughter Rachel Riojas ([phone]) as Pt's other daughter, Jennifer Hidalgo, is on vacation this week. Pt unable to discharge until at least 06/22/22 when new insurance (in network with [facility]) goes into effect. SW to follow. SIGNATURE: LATRICE Munoz PATIENT NAME: Chay Teague DATE: June 18, 2022 TIME: 9:18 AM [facility] NURSING PROGon 06-18-2022 NURSING PROG HNO ID: [id number] Author: Teo López RN Service: Behavioral Health [...] Tremors noted. Appetite is good. Pt is MENTASTA. A/O to self pleasantly confused. No behavioral issues noted. 15 min safety checks maintained. Will monitor. [facility] NURSING PROG HNO ID: [id number] Author: Taylor North RN Service: Nursing Author Type: Registered Nurse Type: Nursing Progress Note Filed: 06/18/2022 6:07 AM Note Text: Nursing Progress Note Patient Name: Chay Teague Patient Location: [place] [id number] Daily Note: Received report and assumed care of Patient at 1900. Patient seen in day area in christine chair. Medications initially given whole in pudding but patient spit out. Med compliant crushed in pudding except Colace, which Patient continued to spit out. Patient can be anxious at times, calling out for help and asking if she is "alright." Assist of 1 to room. Incontinent of bladder this evening. 0600 Patient slept 7 hrs, Broset-1. This note was completed by: Taylor North [facility] THERAPY NTon 06-18-2022 THERAPY NT HNO ID: [id number] Author: Bre Roberts PT Service: Physical Therapy Author Type: Physical Therapist Type: Therapy (PT/OT/Speech/Resp) Filed: 06/18/2022 4:15 PM Note Text: Physical Therapy Treatment SERVICE DATE: 06/18/2022 SERVICE TIME: 1514 to 1541 ROOM: [place] [address] Recommended Discharge Disposition: Subacute/SNF Recommended Discharge Disposition [...] Past Medical History: advanced age, BMI 34.17; MENTASTA, HTN, asthma, hypothyroid, dementia, anxiety/depression Response to [...] family checks in at night. Assistance Available: time checker Prior Functional Level: Required Assistance Assistance Required [...] minimal verbalizations, limited engagement due to significant MENTASTA; states name and CURRENT FUNCTIONAL STATUS: Most [...] Standing Activity Tolerance (in minutes): 3 (fatigue) -HLM: 7: Walk 25 feet or more Learning/Educational Needs: Functional Activities/Mobility;Plan of Care Goals for Plan of Care: Patient /Caregiver Goals: Go Home Goals: Patient will demonstrate understanding of importance of mobility during hospital stay and resolve all f (more content not included)... [facility] NURSING PROGon 06-17-2022 NURSING PROG HNO ID: [id number] Author: Melisa Peña RN Service: Behavioral Health Author Type: Registered Nurse Type: Nursing Progress Note Filed: 06/17/2022 3:12 PM Note Text: Other: nursing progress 1510-pt was in bed until lunch this am. Pt was med compliant this am in applesauce. Pt was cooperative with hands on care. Pt ambulated with one assist. [facility]. Pt has been calm and cooperative will monitor broset 1 [facility] NURSING PROG HNO ID: [id number] Author: Vitaliy Basurto RN Service: Nursing Author [...] 8 hrs. Cooperative with hands on care. [facility] NURSING PROGon 06-16-2022 NURSING PROG HNO ID: [id number] Author: Manda Proctor RN Service: Nursing Author Type: Registered Nurse Type: Nursing Progress Note Filed: 06/16/2022 12:01 PM Note Text: Daily Note: Pt refused breakfast this morning and requested to sleep in. Appears drowsy. Nonsensical speech and unable to answer nursing assessment questions. Confused and alert to self only. 1 assist needed for ambulation and incontinence care. Yells out randomly, "Help me mama," but is unable to verbalize what she needs help with. Took all medications in applesauce but she needed a lot of encouragement. 2 granddaughters in to visit this afternoon. Will continue to monitor. [facility] NURSING PROG HNO ID: [id number] Author: Vitaliy Basurto RN Service: Nursing Author Type: Registered Nurse Type: Nursing Progress Note Filed: 06/16/2022 7:18 AM Note Text: Other: 2000 Pt seen awake, oriented to self, confused, nonsensical, sitting in a christine-chair in the day area. Appeared restless at times but redirectable. Compliant with meds in pudding. Assist x 1-2 for toileting/ADLs, cooperative with care. Pt denies c/o discomfort. Needs attended. Safety checks maintained. Broset -1. 0700 Slept for 7 hrs. [facility] NURSING PROGon 06-15-2022 NURSING PROG HNO ID: [id number] Author: Soniya Hubbard RN Service: Nursing Author Type: Registered Nurse Type: Nursing Progress Note Filed: 06/15/2022 1:54 PM Note Text: Nursing Progress Note Topic of Note: Daily Note Chay Teague [id number] Assumed care of the pt at 0700. The pt is AANDOX1, confused and forgetful. Pt C/O no pain or discomfort at this time. The pt is disruptive at times calling out "please help me help me " while tapping on the table. Pt is redirectable. The pt is medication compliant whole. The pt is pleasant on approach.the pt is MENTASTA. The pt is an assist for all care. The pt is incontinent. Pt up in the day area for close monitoring. 15 min safety checks maintained. Will continue to monitor. This note was completed by: Soniya Hubbard [facility] CASE MANAGEMon 06-14-2022 CASE MANAGEM HNO ID: [id number] Author: LATRICE Munoz Service: Social Work Author Type: Tool Turret Lathe Set Up Operator Type: Care Mgt Progress Note Filed: 06/14/2022 2:38 PM Note Text: BEHAVIORAL HEALTH SOCIAL WORK PROGRESS NOTE SERVICE DATE: 06/14/2022 SERVICE TIME: 1320 SW called Estephania in [facility] admissions ([phone]) and provided detailed update. SW to await return phone call. No specific discharge date identified at this time. SW to follow. Update 1430: SW received return call from facility stating that admission would have to wait until appropriate insurance is in place on 06/22/22. SIGNATURE: LATRICE Munoz PATIENT NAME: Chay Teague DATE: June 14, 2022 TIME: 8:31 AM [facility] NURSING PROGon 06-14-2022 NURSING PROG HNO ID: [id number] Author: Mendez Nguyen RN Service: ? Author [...] Date: June 14, 2022 Time: 9:26 PM [facility] NURSING PROG HNO ID: [id number] Author: Corrina Chandler RN Service: Nursing Author Type: Registered Nurse Type: Nursing Progress Note Filed: 06/14/2022 7:07 PM Note Text: Other: Pt. Is visible on this unit. No s/s of distress noted. Compliant with medications. Continues to be confused. Constantly asking staff for help and if she's ok. Fair appetite for meals. Will continue to monitor. [facility] NURSING PROG HNO ID: [id number] Author: Albert Bryan, LENIN Service: Behavioral Health Author Type: Registered Nurse Type: Nursing Progress Note Filed: 06/14/2022 6:14 AM Note Text: Other: Assumed care of patient at 1930. She was out in the day area seated on christine-chair.She was very confused oriented to self only. She always say "Am I good?" She took her medications whole with pudding. She is one assist and continent. No signs of distress noted. Closely monitored for behavioral changes and safety measures maintained at all times. Broset score-1 (Confused). 0600: patient slept for about 7 hours. Patient still in bed at this time asleep. Will continue to monitor. [facility] CASE MANAGEMon 06-13-2022 CASE MANAGEM HNO ID: [id number] Author: LATRICE Munoz Service: Social Work Author Type: Tool Turret Lathe Set Up Operator Type: Care Mgt Progress Note Filed: 06/13/2022 [...] Daughter was able to complete enrollment for [facility] dual advantage, effective date 06/22/22. SW to update facility and determine particulars of admission policy regarding future coverage. SW to follow. SIGNATURE: LATRICE Munoz PATIENT NAME: Chay Teague DATE: June 13, 2022 TIME: 11:10 AM [facility] NURSING PROGon 06-13-2022 NURSING PROG HNO ID: [id number] Author: Melisa Peña, RN Service: Behavioral Health Author Type: Registered [...] visit this yudith will monitor broset 2 [facility] NURSING PROG HNO ID: [id number] Author: Vitaliy Basurto RN Service: Nursing Author Type: Registered Nurse Type: Nursing Progress Note Filed: 06/13/2022 6:07 AM Note Text: Other: 0000 Assumed care of pt. Received pt sleeping in bed, no signs of distress noted. No behavioral issue noted. Safety precautions maintained. 0700 Pt slept well for 9 hrs throughout the night. Behavior in control. Broset -1 (confused) [facility] NUTRITIONon 06-13-2022 NUTRITION HNO ID: [id number] Author: Yoly Pan RD Service: Nutrition Therapy [...] 06/06/22 0610 Anthropometrics: Height: 155 cm (5' 1.02") (estimate, pt GRECIA due to mental status) Weight: 82.1 kg (181 lb) MNT Billing: $ Initial Assessment: 1-15 minutes SIGNATURE: Yoly Pan RD PATIENT NAME: Chay Teague DATE: June 13, 2022 TIME: 1:14 PM [facility] CASE MANAGEMon 06-12-2022 CASE MANAGEM HNO ID: [id number] Author: LATRICE Munoz Service: Social Work Author Type: Tool Turret Lathe Set Up Operator Type: Care Mgt Progress Note Filed: 06/12/2022 1:50 PM Note Text: BEHAVIORAL HEALTH SOCIAL WORK PROGRESS NOTE SERVICE DATE: 06/12/2022 SERVICE TIME: 1200 SW faxed clinicals to [facility]. nutritional services director informed SW that they are not in network with [employer] and only have wanderguard. SW called Pt's daughter to update and she states that she will apply for [employer] and that [facility] remain their first FOC. ASHLEY updated facility as to same. SIGNATURE: LATRICE Munoz PATIENT NAME: Chay Teague DATE: June 12, 2022 TIME: 1:19 PM [facility] NURSING PROGon 06-12-2022 NURSING PROG HNO ID: [id number] Author: Leticia Barker RN Service: Nursing Author [...] given. Broset-1, will continue assault, fall precs. [facility] NURSING PROG HNO ID: [id number] Author: Iva Bailey RN Service: Behavioral Health Author Type: Registered Nurse Type: Nursing Progress Note Filed: 06/12/2022 2:46 PM Note Text: Other: 0730 assume care, Patient AANDO 1 only. Patient medication compliant whole in applesauce. Cooperative with physical assessment. Patient ate well. Patient restless at times, yelling and hitting table and stated take me take me". Patient able to direct. , nonsensical speech. denies pain patient in Juan [place] chair, . In day area, No hallucinations or delusions are noted, anxious, Will cont to monitor. [facility] NURSING PROG HNO ID: [id number] Author: Gilbert Watson RN Service: ? Author [...] yelling this morning while in day area. [facility] CASE MANAGEMon 06-11-2022 CASE MANAGEM HNO ID: [id number] Author: LATRICE Munoz Service: Social Work Author Type: Tool Turret Lathe Set Up Operator Type: Care Mgt Progress Note Filed: 06/11/2022 1:50 PM Note Text: BEHAVIORAL HEALTH SOCIAL WORK PROGRESS NOTE SERVICE DATE: 06/11/2022 SERVICE TIME: 1300 SW received return call from Estephania in admissions at [facility]. She states that Pt would be coming LTC and would need a PAS (ASHLEY submitted for one and received favorable determination). She provided fax: [phone] for clinical information and her work cell for updates: [phone]. ASHLEY to send updated information. ASHLEY to follow. SIGNATURE: LATRICE Munoz PATIENT NAME: Chay Teague DATE: June 11, 2022 TIME: 9:17 AM [facility] NURSING PROGon 06-11-2022 NURSING PROG HNO ID: [id number] Author: Melisa Peña RN Service: Behavioral Health Author Type: Registered Nurse Type: Nursing Progress Note Filed: 06/11/2022 5:44 PM Note Text: Other: 1453-nursing progress pt was up on the unit seated in the gerichair for safety. Pt was med compliant in applesauce. Pt did yell out "MOM" once in awhile. Pt did ambulate to the bathroom. Pt continent of urine. Will monitor broset 2 1743-pt was up on the unit seated in the gerichair. Pt was fed her dinner. Pt was toileted and continent of urine and bm. Pt calm and cooperative will monitor [facility] NURSING PROG HNO ID: [id number] Author: Taylor North RN Service: Nursing Author Type: Registered Nurse Type: Nursing Progress Note Filed: 06/11/2022 6:16 AM Note Text: Nursing Progress Note Patient Name: Chay Teague Patient Location: [id number] - Daily Note: Received report and assumed care of patient at 1900. Patient seen in day area in christine chair. Pleasantly confused. Friendly with other patients and staff. Can be intrusive at times, observed patting other Patient's knee. Offset Lithographic Press Operator redirected Patient and educated on appropriate behavior. Patient cooperative with teaching. Med compliant whole in applesauce, but did spit out Colace gel capsule several times due to confusion. Denies pain. Assist of 1 to room. Safety maintained. 0600 Patient slept 5 hrs, Broset-1. This note was completed by: Taylor North [facility] THERAPY NTon 06-11-2022 THERAPY NT HNO ID: [id number] Author: Amarilys Salguero PTA Service: Physical Therapy Author Type: Lifeguard Type: Therapy (PT/OT/Speech/Resp) Filed: 06/11/2022 1:16 PM Note Text: ----- Attestation signed by Lisa Perez, PT at 06/11/2022 1:24 PM I reviewed and agree with the documentation corresponding to this therapy visit. SIGNATURE: Lisa Perez, PT DATE: June 11, 2022 TIME: 1:24 PM ----- Physical Therapy Treatment SERVICE DATE: 06/11/2022 SERVICE TIME: 1155 to 1220 ROOM: [place] [address] Recommended Discharge Disposition: Home PT Recommended Discharge [...] Care / Home Management;Joint Mobility;Strengthening;Ba pablito Training Plan for next visit: Bed mobility, Fall prevention, Family instruction, Gait training, Exercise instruction/handout, Pre-gait activities, Sit to Stand Transfers, Sitting balance, Standing Balance Home Environment Patient Lives With: Other: See Comment (Lives alone, has caregivers during the day and family checks in at night.) Comments: Lives alone, has caregivers during the day and family checks in at night. Assistance Available: time checker Prior Functional Level: Required Assistance Assistance Required [...] 2 Stairs Curb Step Car Transfer Blank snatoyo indicate activity not attempted General Deviations/Observations: Daisy [...] Rehab Potential: Go (more content not included)... Normal [facility] Valproate SerPl-mCncon 06-11 Valproate [Mass/Vol] 49.5 ug/mL Low 50.0-100.0 [facility] Comment on above: Order Comment: Speci men Type: BLOOD SPECIMENOrdering Facility: [facility] Address: [address] [place] [address] Result Comment: Refe rence ranges and high/low indicator flags are provided as general guidelines only. The treating physician must determine appropriate target levels/dosing based on the specific clinical situation. Performed By: #### 4 086-5 ####[facility] LABORATORYCLIA [id number] [place] [id number] [facility] CASE MANAGEMon 06-10-2022 CASE MANAGEM HNO ID: [id number] Author: LATRICE Munoz Service: Social Work Author Type: Tool Turret Lathe Set Up Operator Type: Care Mgt Progress Note Filed: 06/10/2022 2:07 PM Note Text: BEHAVIORAL HEALTH SOCIAL WORK PROGRESS NOTE SERVICE DATE: 06/10/2022 SERVICE TIME: 1300 SW placed call to [facility] admission department. SW informed admission director was on other line but was able to leave detailed message for her, requesting confirmation that they have ECF services (as opposed to assisted living or SNF) as well as to confirm a fax number to which to send clinical updates prior to discharge. SW to follow. SIGNATURE: LATRICE Munoz PATIENT NAME: Chay Teague DATE: June 10, 2022 TIME: 2:05 PM [facility] NURSING PROGon 06-10-2022 NURSING PROG HNO ID: [id number] Author: Melisa Peña RN Service: Behavioral Health Author Type: Registered Nurse Type: Nursing Progress Note Filed: 06/10/2022 5:20 PM Note Text: Other: nursing [id number] was up on the unit seated in the gerichair for safety pt was one assist with walking to the bathroom. Pt incontinent of urine and bm. Pt was med compliant with medications in apple sauce. Pt had no agitation or aggressive behavior will monitor broset 2 8258-pt was up in chair for dinner. Pt was fed dinner. Pt ate well. Pt was calm and cooperative. Pt was assist x1 to the bathroom pt was incontinent of small stool. Pt cooperative with hands on care will monitor [facility] NURSING PROGon 06-09-2022 NURSING PROG HNO ID: [id number] Author: Mendez Nguyen RN Service: ? Author [...] Date: June 09, 2022 Time: 9:49 PM [facility] [id number] Author: Teo López RN Service: Behavioral Health [...] 15 min safety checks maintained. Will monitor. [facility] NURSING [facility] 06-08-2022 NURSING PROG HNO ID: [id number] Author: Mendez Nguyen RN Service: ? Author [...] Date: June 08, 2022 Time: 10:32 PM [facility] NURSING PROG HNO ID: [id number] Author: Gilbert Watson RN Service: ? Author [...] remained cooperative with care, incontinent of bladder. [facility] CASE MANAGEMon 06-07-2022 CASE MANAGEM HNO ID: [id number] Author: LATRICE Munoz Service: Social Work Author Type: Tool Turret Lathe Set Up Operator Type: Care Mgt Progress Note Filed: 06/07/2022 12:14 PM Note Text: BEHAVIORAL HEALTH SOCIAL WORK PROGRESS NOTE SERVICE DATE: 06/07/2022 SERVICE TIME: 12:00 pm Pt discussed in treatment team and observed on unit. Pt does appear more alert and organized than on previous day. She will remain inpatient through the weekend. SW to submit PAS on Friday (06/10/22) and follow units with [facility] with updated clinical information. SW to follow. SIGNATURE: LATRICE Munoz PATIENT NAME: Chay Teague DATE: June 07, 2022 TIME: 8:42 AM [facility] Lipid 1996 panelon 2 Cholesterol [Mass/Vol] 217 mg/dL High <200 [facility] Comment on above: Order Comment: Speci men Type: BLOOD SPECIMENOrdering Facility: [facility] Address: [address] [place] [address] Result Comment: <200 mg/dL, Desirable 200-239 mg/dL, Borderline high >239 mg/dL, High Performed By: #### 2 4331-1 ####[facility] LABORATORYCLIA [id number] [place] [address] [place] Cholesterol in HDL [Mass/Vol] 75 mg/dL Normal >39 [facility] Comment on above: Order Comment: Bisi naranjo Type: BLOOD SPECIMENOrdering Facility: [facility] Address: [address] [place] [address] Result Comment: 40-5 9 mg/dL, Acceptable >59 mg/dL, High: Negative risk factor for coronary heart disease <40 mg/dL, Low: Positive risk factor for coronary heart disease Performed By: #### 2 4331-1 ####[facility]ORATORYCLIA [id number] [address] STATES [facility] Cholesterol in LDL [Mass/Vol] 124 mg/dL High <100 [facility] Comment on above: Order Comment: Sharina naranjo Type: BLOOD SPECIMENOrdering Facility: [facility] Address: [address] [place] [address] Result Comment: <100 mg/dL, Optimal 100-129 mg/dL, Near optimal/above optimal 130-159 mg/dL, Borderline high 160-189 mg/dL, High >189 mg/dL, Very high Secondary prevention optimal LDL Cholesterol levels are recommended to be < 70 mg/dL Performed By: #### 2 4331-1 ####[facility]ORATORYCLIA [id number] [address] [place] Cholesterol in LDL/Cholesterol in HDL [Mass ratio] 1.65 {ratio} Normal <2.54 [facility] Comment on above: Order Comment: Bisi naranjo Type: BLOOD SPECIMENOrdering Facility: [facility] Address: [address] [place] [address] Result Comment: Refe rence: 1. National Cholesterol Education Program ATP III Guideline At-A-Glance Quick Desk Reference: National Heart, Lung, and Blood [place]. National Institutes of Health. 2001: NIH Publication No. 01-3305. 2. An International Atherosclerosis Society position paper: global recommendations for the management of dyslipidemia: executive summary, Atherosclerosis. 2014: 232(2):410-413. Performed By: #### 2 4331-1 ####[facility]ORATORYCLIA [id number] [place] [id number] [place] Cholesterol in VLDL [Mass/Vol] 18 mg/dL Normal <30 [facility] Comment on above: Order Comment: Speci men Type: BLOOD SPECIMENOrdering Facility: [facility] Address: [address] [place] [address] Performed By: #### 2 4331-1 ####[facility]ORATORYCLIA [id number] [place] [address] [place] Cholesterol non HDL [Mass/Vol] 142 mg/dL High <130 [facility] Comment on above: Order Comment: Speci men Type: BLOOD SPECIMENOrdering Facility: [facility] Address: [address] [place] [address] Result Comment: <130 mg/dL, Optimal 130-159 mg/dL, Near optimal/above optimal 160-189 mg/dL, Borderline high 190-219 mg/dL, High >219 mg/dL, Very high Secondary prevention optimal non HDL Cholesterol levels are recommended to be <100 mg/dL Performed By: #### 2 4331-1 ####[facility]ORATORYCLIA [id number] [place] [address] [place] Cholesterol.total/Chol esterol in HDL [Mass ratio] 2.89 {ratio} Normal <5.10 [facility] Comment on above: Order Comment: Speci men Type: BLOOD SPECIMENOrdering Facility: [facility] Address: [address] [place] [address] Performed By: #### 2 4331-1 ####[facility]ATORYCLIA [id number] [place] [address] [place] FASTING TIME 8 hrs Normal [facility] Comment on above: Order Comment: Speci men Type: BLOOD SPECIMENOrdering Facility: [facility] Address: [address] [place] [address] Performed By: #### 2 4331-1 ####[facility]ATORYCLIA [id number] [place] [address] [place] Triglyceride [Mass/Vol] 91 mg/dL Normal <150 [facility] Comment on above: Order Comment: Speci men Type: BLOOD SPECIMENOrdering Facility: [facility] Address: [address] [place] [address] Result Comment: <150 mg/dL, Normal 150-199 mg/dL, Borderline high 200-499 mg/dL, High >499 mg/dL, Very high Performed By: #### 2 4331-1 ####[facility] LABORATORYCLIA [id number] [place] [id number] [facility] NURSING PROGon 06-07-2022 NURSING PROG HNO ID: [id number] Author: Teo López RN Service: Behavioral Health [...] MOM given for c/o of constipation. Pt MENTASTA, hearing aid on. Pt needs to be fed. Pt answer to every question is "I dont know". Visible tremors on assessment. 15 min safety checks maintained. Will monitor. [facility] NURSING PROG HNO ID: [id number] Author: Gilbert Watson RN Service: ? Author [...] her 0600 medication, remained cooperative with care. [facility] ALLIED HEALTHon 06-06-2022 ALLIED HEALTH HNO ID: [id number] Author: MYRON Talbot Service: Recreational Therapy Author [...] 06, 2022 TIME: 8:26 AM PAGER/CONTACT #: [facility] ALLIED HEALTH HNO ID: [id number] Author: MYRON Talbot Service: Recreational Therapy Author [...] COMPLETED: Yes: STRESS MANAGEMENT SKILLS: Identified Stressors: "I want out of here." Effective Coping Strategies Used: Patient unable to [...] 06, 2022 TIME: 8:20 AM PAGER/CONTACT #: [facility] CASE MGT INIT Michelle 2021 CASE MGT INIT ROSINA HNO ID: [id number] Author: LATRICE Munoz Service: Social Work Author Type: Tool Turret Lathe Set Up Operator Type: Care Mgt Initial Assessment Filed: 06/06/2022 12:23 PM Note Text: BEHAVIORAL HEALTH SOCIAL WORK/CARE MANAGEMENT ASSESSMENT AND DISCHARGE PLAN SERVICE DATE: 06/06/2022 SERVICE TIME: 11:00 am Reason for Admission: Per intake: "Chay Teague is a 77 year old female brought in to [facility] from Home by family for confusion. [...] not steal the car back for her. Offset Lithographic Press Operator attempted interview with pt telephonically. It was noted by ED RN Liz that pt did not have her dentures in nor her hearing aide in to assist. Pt is noted to be panting and moaning, making sounds but not forming full words. Pt was not able to participate in conversation and and was not responsive to "yes" or "no" questions. ED RN reported, upon arrival, that pt was also not participating in conversation and not answering "yes" or "no" questions either, but was saying repeatedly, "I don't know, I don't know." Pt is not linked with a psychiatrist. Pt does not have any hx/o psychiatric admissions. There are no reported concerns for SI/HI/SIB. Collateral information obtained from pt's daughter, Jennifer Hidalgo ([phone]). Daughter reports that pt has underlying dementia, [...] with pt being on the waitlist at [facility]." Legal Status: Involuntary - Medical Certificate and awaiting POA consent Important Contacts: Primary Contact Name: Jennifer Hidalgo / Relationship: Daughter / / Does the patient/labor service representative consent to contact with the [...] Chay Teague was born and raised in [place], [place] by her biological parents. Her childhood [...] Needs: Not on file Health Insurance: [facility] Medicare SECONDARY: [facility] Medicaid Status (including history of combat experience): None Legal History: Patient/Informix Developer Denies Yazidi/Spirituality: Caodaism PSYCHIATRIC HISTORY: None Violence Risk to Self: In the past 6 months have you had thoughts of killing yourself or suicidal ideations? No In the past 6 months, have you made plans/preparations and/or had an intent to act upon these suicidal ideas/thoughts? No Has Patient Been Hospitalized Previously for Psychiatric Reasons? No, Patient/Informix Developer denies Substance Use and Treatment History: Patient/Informix Developer Denies Lab Results Negative for Tested Substances Do special considerations/accommodat ions need to be made (i.e. preferred language, literacy, gender identity, physical disability such as deaf or blind, etc)? No, Patient/Informix Developer Denies Are there practices or beliefs that may affect or influence treatment? No, Patient/Informix Developer Denies Patient Strengths/Protective Factors (Minimum of Two): Sobriety Stable Housing Stabl (more content not included)... [facility] CONSULTon 06-06-2022 CONSULT HNO ID: [id number] Author: Beba Bray MD Service: ? Author [...] Medical clearance , Pt was transferred to [facility] for further psychiatric treatment. Consultation was [...] No history of dysuria, frequency or incontinence EXECUTIVE DIRECTOR: Negative for abnormal vaginal, bleeding, abnormal vaginal [...] -- -- 118 22 -- -- -- 06/06/228 143/82 36.6 ?C (97.9 ?F) Axillary 120 22 94 % -- -- 06/06/226 -- -- -- -- -- -- 155 cm (5' 1.02") 82.1 kg (181 lb) Body mass index is 34.17 kg/m?. GENERAL: Healthy, alert, no distress, cooperative, Smiling SKIN: Skin color, texture, turgor normal. No rashes or lesions. OROPHARYNX: Lips, mucosa, and tongue are normal.Teeth and (more content not included)... [facility] ED NOTEon 06-06-2022 ED NOTE HNO ID: [id number] Author: Zaid Cuello RN Service: ? Author Type: Registered Nurse Type: ED Notes Filed: 06/06/2022 3:47 AM Note Text: SBAR report to [facility] transport team, patient care handed off without incident. [facility] ED NOTE HNO ID: [id number] Author: Liz Perry RN Service: ? Author Type: Registered Nurse Type: ED Notes Filed: 06/06/2022 2:37 AM Note Text: Pt report called to [facility] with RN. [facility] ED NOTE HNO ID: [id number] Author: Liz Perry RN Service: ? Author Type: Registered Nurse Type: ED Notes Filed: 06/06/2022 12:48 AM Note Text: Intake on the phone with RN about admission. [facility] ED NOTE HNO ID: [id number] Author: Liz Perry RN Service: ? Author Type: Registered Nurse Type: ED Notes Filed: 06/06/2022 12:49 AM Note Text: Pt is still attempting to get out of bed and is restless, MD made aware and medications ordered, [facility] ED NOTE HNO ID: [id number] Author: Liz Perry RN Service: ? Author Type: Registered Nurse Type: ED Notes Filed: 06/06/2022 12:22 AM Note Text: Intake attempted to interview pt. [facility] ED NOTE HNO ID: [id number] Author: Liz Perry RN Service: ? Author Type: Registered Nurse Type: ED Notes Filed: 06/05/2022 10:59 PM Note Text: Intake on the phone with MD [facility] ED NOTE HNO ID: [id number] Author: Liz Perry RN Service: ? Author Type: Registered Nurse Type: ED Notes Filed: 06/05/2022 10:46 PM Note Text: Pts daughter on the phone with intake [facility] ED NOTE HNO ID: [id number] Author: Liz Perry RN Service: ? Author Type: Registered Nurse Type: ED Notes Filed: 06/05/2022 10:02 PM Note Text: Pt is sleeping in bed with call light in reach. Equal chest rise and fall noted with regular respirations. Bed is locked and in the lowest position. No acute distress noted. Safety maintained. Will continue to monitor. [facility] ED PROV NOTEon 06-06-2022 ED PROV NOTE HNO ID: [id number] Author: Mendez Arellano MD Service: Emergency Medicine Author Type: Physician Type: ED Provider Notes Filed: 06/06/2022 4:14 AM Note Text: ED CONTINUATION OF CARE NOTE Code Status: Full Code Assumed care from: Dr Taylor Presentation / Findings / Interventions / Plan / Items to Follow Up: Patient signed out pending admission to geriatric at [facility]. Central intake arrange for patient to be admitted to [facility] psych and is accepting. ED Course as [...] AM PAGER/CONTACT #: Mendez Arellano MD 06/06/22413 [facility] HISTORY PHYSICALon HISTORY PHYSICAL HNO ID: [id number] Author: John Penny MD Service: Psychiatry Author Type: Physician Type: HANDP Filed: 06/07/2022 5:42 AM Note Text: [facility] Behavioral Health Admit Note ORIGINATOR: John Penny MD CHAY TEAGUE ACCTNUM: [id number] SERVICE: [facility] LOCATION: [place] [address] ATTENDING PHYSICIAN: JOHN PENNY DATE OF SERVICE: 06/06/2022 IDENTIFYING INFORMATION: The patient is a 77-year-old female. HISTORY OF PRESENT ILLNESS: Patient was admitted to [facility] after she appeared to [facility] for wandering behavior; behavioral disturbances; was found to suffer UTI, received IV Rocephin. Patient brought in from home by family for confusion, suffered frontal lobe dementia and multiple medical problems, countdown to suffer UTI. Daughter brought the patient to the ED. Daughter is power of air bag buffer after she contacted by the local police [...] she is on a waiting list for [facility]. PAST PSYCHIATRIC HISTORY: Patient has extensive [...] paranoid ideation. SANDY: no reported symptoms of SADNY OCD:no reported symptoms of OCD. PTSD:no reported PTSD symptoms Confusion:no reported evidence of confusion INFORMED CONSENT: Yes, completed with the Patient and POA Discussed the risks, benefits and alternatives to the medication(s) recommended. Consent was given. SOCIAL HISTORY: Patient lives at home. Daughter is supportive and power of air bag buffer. She has a home health aide. Daughter [...] Date Value 06/05/2022 (more content not included)... [facility] NURSING PROGon 06-06-2022 NURSING PROG HNO ID: [id number] Author: Manda Proctor RN Service: Nursing Author Type: Registered Nurse Type: Nursing Progress Note Filed: 06/06/2022 5:52 PM Note Text: Daily note: Pt appears restless and confused. She is only able to state her name. She is unable to answer majority of nursing assessment questions. She does not understand she is in the hospital and states, "I gotta get out of here." Took all medications crushed in applesauce and tolerated flu vaccine. Coarse tremors noted. 2 assist needed for incontinence care. Will continue to monitor. 1730- Pt continues to be confused throughout the shift. 2 assist needed for incontinence care throughout the day. Very weak with tremors, thus has difficulty standing and unable to walk. States, "I don't know," multiple times throughout the day. D/C focused. RN attempted to assist pt eating. Poor appetite- refused to eat all meals. [facility] NURSING PROG HNO ID: [id number] Author: Wesley Espinal RN Service: Nursing Author Type: Registered Nurse Type: Nursing Progress Note Filed: 06/06/2022 5:24 AM Note Text: Transfer note: Patient brought onto the unit in stable condition via EMS from [facility]. Patient is tearful and yelling upon assessment. [...] 77 year old female brought in to [facility] from Home by family for confusion. Pt [...] not steal the car back for her. Offset Lithographic Press Operator attempted interview with pt telephonically. It was noted by ED RN Liz that pt did not have her dentures in nor her hearing aide in to assist. Pt is noted to be panting and moaning, making sounds but not forming full words. Pt was not able to participate in conversation and and was not responsive to "yes" or "no" questions. ED RN reported, upon arrival, that pt was also not participating in conversation and not answering "yes" or "no" questions either, but was saying repeatedly, "I don't know, I don't know." Pt is not linked with a psychiatrist. Pt does not have any hx/o psychiatric admissions. There are no reported concerns for SI/HI/SIB. Collateral information obtained from pt's daughter, Jennifer Hidalgo ([phone]). Daughter reports that pt has underlying dementia, [...] with pt being on the waitlist at [facility]. [facility] NURSING PROG HNO ID: [id number] Author: Zelda Serrano RN Service: Behavioral Health [...] 06/09/22 Progress Towards Short Term Goals: Progressing Clinical Informatics Manager Goals: Patient will have achieved optimal level of functioning;Patient will verbalize benefits of compliance with medication and treatment after discharge;Patient will participate in cognitive, physical and social activities Target Date Clinical Informatics Manager Goals: 06/13/22 Progress Towards Clinical Informatics Manager Goals: Progressing Interventions - Nursing: Offer frequent [...] DATE: June 06, 2022 TIME: 5:12 AM [facility] THERAPY NTon 06-06-2022 THERAPY NT HNO ID: [id number] Author: Shellie Saavedra OT/L Service: Occupational Therapy Author Type: Occupational Therapist Type: Therapy (PT/OT/Speech/Resp) Filed: 06/07/2022 9:56 AM Note Text: Occupational Therapy Evaluation SERVICE DATE: 06/06/2022 SERVICE TIME: 1330 to 1355 ROOM: [id number] Recommended Discharge Disposition: Home OT Anticipated Discharge [...] family checks in at night. Assistance Available: time checker Prior Functional Level: Required Assistance Assistance Required [...] of daily living (ADL) Interventions Provided: Evaluation;Self [facility] (68044) $ Evaluation-Low (26208) Billed Units: 1 unit Self [facility] (76143) Treatment Minutes: 10 $ Self [facility] (58837) Billed Units: 1 unit Timed Code Treatment (minutes): 10 Skilled Treatment Time (minutes): 25 Please see discipline specific clinical documentation flowsheet for complete details for this therapy evaluation/treatment. SIGNATURE: Shellie Saavedra OT/Sheldon PATIENT NAME: Chay Teague DATE: June 06, 2022 TIME: 1:30 PM [facility] THERAPY NT HNO ID: [id number] Author: Bonnie Nuñez PT Service: Physical Therapy Author Type: Physical Therapist Type: Therapy (PT/OT/Speech/Resp) Filed: 06/06/2022 8:41 AM Note Text: Physical Therapy Evaluation SERVICE DATE: 06/06/2022 SERVICE TIME: 809 to 819 ROOM: [id number] Recommended Discharge Disposition: Home PT Recommended Discharge [...] family checks in at night. Assistance Available: time checker Prior Functional Level: Required Assistance Assistance Required [...] on feet Interventions Provided: Evaluation $ Evaluation-Low (17315) Billed Units: 1 unit Training AND education [...] details for this therapy evaluation/treatment. SIGNATURE: Bonnie Nuñez PT PATIENT NAME: Chay Teague DATE: June 06, 2022 TIME: 8:40 AM [facility] 06-05-2022 ALLIED HEALTH HNO ID: [id number] Author: RT Sabrina(R) Service: Radiology Author Type: Technologist Type: Allied [...] RT Sabrina(R) June 05, 2022 8:12 PM Normal [facility] ALLIED HEALTH HNO ID: [id number] Author: JESSIE Duke Service: Radiology Author Type: [...] JESSIE Duke June 05, 2022 7:52 PM Normal [facility] Bacteria Ur Culton 2 Bacteria identified Cx Nom (U) [id number] Abnormal [facility] Comment on above: Order Comment: Speci men Type: URINE SPECIMENOrdering Facility: [facility] Address: [address] [place] [address] Result Comment: <10, 000 CFU/ml Mixed microbiota No further workup. Mixed microbiota can be due to???urine???contamination with skin bacteria at time of collection or presence of a long-term urinary catheter. If a new culture is needed, please consider re-education of the patient on proper midstream collection technique or straight catheterization for???urine???collection. Performed By: #### 6 30-4 ####[facility] LAB[facility]IA [id number] [place] [address] [place] CBC W Auto Differential pane l (Bld)on 06-05-2022 Basophils (Bld) [#/Vol] 0.07 10*3/uL Normal <0.11 [facility] Comment on above: Order Comment: Speci men Type: BLOOD SPECIMENOrdering Facility: [facility] Address: [address] [place] [address] Performed By: #### 5 7021-8 ####[facility]ATORYCLIA [id number] [address] Basophils/100 WBC (Bld) 0.8 % Normal [facility] Comment on above: Order Comment: Speci men Type: BLOOD SPECIMENOrdering Facility: [facility] Address: [address] [place] [address] Performed By: #### 5 7021-8 ####[facility]ORATORYCLIA [id number] [address] Differential cell count method Nom (Bld) Auto Normal [facility] Comment on above: Order Comment: Speci men Type: BLOOD SPECIMENOrdering Facility: [facility] Address: [address] [place] [address] Performed By: #### 5 7021-8 ####[facility] LABORATORYCLIA [id number] [place] [address] [place] Eosinophils (Bld) [#/Vol] 0.34 10*3/uL Normal <0.46 [facility] Comment on above: Order Comment: Speci men Type: BLOOD SPECIMENOrdering Facility: [facility] Address: [address] [place] [address] Performed By: #### 5 7021-8 ####[facility]ORATORYCLIA [id number] [address] Eosinophils/100 WBC (Bld) 4.0 % Normal [facility] Comment on above: Order Comment: Speci men Type: BLOOD SPECIMENOrdering Facility: [facility] Address: [address] [place] [address] Performed By: #### 5 7021-8 ####[facility] LABORATORYCLIA [id number] [address] [place] Erythrocyte distribution width (RBC) [Ratio] 14.5 % Normal 11.5-15.0 [facility] Comment on above: Order Comment: Speci men Type: BLOOD SPECIMENOrdering Facility: [facility] Address: [address] [place] [address] Performed By: #### 5 7021-8 ####[facility]ORATORYCLIA [id number] [address] Hematocrit (Bld) [Volume fraction] 41.2 % Normal 36.0-46.0 [facility] Comment on above: Order Comment: Speci men Type: BLOOD SPECIMENOrdering Facility: [facility] Address: [address] [place] [address] Performed By: #### 5 7021-8 ####[facility] LABORATORYCLIA [id number] [address] Hemoglobin (Bld) [Mass/Vol] 13.6 g/dL Normal 11.5-15.5 [facility] Comment on above: Order Comment: Speci men Type: BLOOD SPECIMENOrdering Facility: [facility] Address: [address] [place] [address] Performed By: #### 5 7021-8 ####[facility] LABORATORYCLIA [id number] [address] IMMATURE GRAN % 0.5 % Normal [facility] Comment on above: Order Comment: Speci men Type: BLOOD SPECIMENOrdering Facility: [facility] Address: [address] [place] [address] Performed By: #### 5 7021-8 ####[facility] LABORATORYCLIA [id number] [address] IMMATURE GRAN ABS 0.04 k/uL Normal <0.10 [facility] Comment on above: Order Comment: Speci men Type: BLOOD SPECIMENOrdering Facility: [facility] Address: [address] [place] [address] Performed By: #### 5 7021-8 ####[facility]ORATORYCLIA [id number] [address] Lymphocytes (Bld) [#/Vol] 2.31 10*3/uL Normal 1.00-4.00 [facility] Comment on above: Order Comment: Speci men Type: BLOOD SPECIMENOrdering Facility: [facility] Address: [address] [place] [address] Performed By: #### 5 7021-8 ####[facility]ORATORYCLIA [id number] [address] Lymphocytes/100 WBC (Bld) 27.0 % Normal [facility] Comment on above: Order Comment: Speci men Type: BLOOD SPECIMENOrdering Facility: [facility] Address: [address] [place] [address] Performed By: #### 5 7021-8 ####[facility] LABORATORYCLIA [id number] [address] [place] MCH (RBC) [Entitic mass] 30.7 pg Normal 26.0-34.0 [facility] Comment on above: Order Comment: Speci men Type: BLOOD SPECIMENOrdering Facility: [facility] Address: [address] [place] [address] Performed By: #### 5 7021-8 ####[facility] LABORATORYCLIA [id number] [address] [place] MCHC (RBC) [Mass/Vol] 33.0 g/dL Normal 30.5-36.0 [facility] Comment on above: Order Comment: Speci men Type: BLOOD SPECIMENOrdering Facility: [facility] Address: [address] [place] [address] Performed By: #### 5 7021-8 ####[facility] LABORATORYCLIA [id number] [address] [place] MCV (RBC) [Entitic vol] 93.0 fL Normal 80.0-100.0 [facility] Comment on above: Order Comment: Speci men Type: BLOOD SPECIMENOrdering Facility: [facility] Address: [address] [place] [address] Performed By: #### 5 7021-8 ####[facility] LABORATORYCLIA [id number] [place] [address] [facility] [place] Monocytes (Bld) [#/Vol] 0.75 10*3/uL Normal <0.87 [facility] Comment on above: Order Comment: Speci men Type: BLOOD SPECIMENOrdering Facility: [facility] Address: [address] [place] [address] Performed By: #### 5 7021-8 ####[facility] LABORATORYCLIA [id number] [place] [address] [place] Monocytes/100 WBC (Bld) 8.8 % Normal [facility] Comment on above: Order Comment: Speci men Type: BLOOD SPECIMENOrdering Facility: [facility] Address: [address] [place] [address] Performed By: #### 5 7021-8 ####[facility] LABORATORYCLIA [id number] [place] [address] [place] Neutrophils (Bld) [#/Vol] 5.04 10*3/uL Normal 1.45-7.50 [facility] Comment on above: Order Comment: Speci men Type: BLOOD SPECIMENOrdering Facility: [facility] Address: [address] [place] [address] Performed By: #### 5 7021-8 ####[facility] LABORATORYCLIA [id number] [address] [place] Neutrophils/100 WBC (Bld) 58.9 % Normal [facility] Comment on above: Order Comment: Speci men Type: BLOOD SPECIMENOrdering Facility: [facility] Address: [address] [place] [address] Performed By: #### 5 7021-8 ####[facility] LABORATORYCLIA [id number] [place] [address] [place] Nucleated RBC (Bld) [#/Vol] 10*3/uL Normal <0.01 [facility] Comment on above: Order Comment: Speci men Type: BLOOD SPECIMENOrdering Facility: [facility] Address: [address] [place] [address] Performed By: #### 5 7021-8 ####[facility] LABORATORYCLIA [id number] [place] [address] [place] Nucleated RBC/100 WBC (Bld) [Ratio] 0.0 /100 WBC Normal [facility] Comment on above: Order Comment: Speci men Type: BLOOD SPECIMENOrdering Facility: [facility] Address: [address] [place] [address] Performed By: #### 5 7021-8 ####[facility] LABORATORYCLIA [id number] [place] [address] [place] Platelet mean volume (Bld) [Entitic vol] 10.1 fL Normal 9.0-12.7 [facility] Comment on above: Order Comment: Speci men Type: BLOOD SPECIMENOrdering Facility: [facility] Address: [address] [place] [address] Performed By: #### 5 7021-8 ####[facility] LABORATORYCLIA [id number] [place] [address] [place] Platelets (Bld) [#/Vol] 283 10*3/uL Normal 150-400 [facility] Comment on above: Order Comment: Speci men Type: BLOOD SPECIMENOrdering Facility: [facility] Address: [address] [place] [address] Performed By: #### 5 7021-8 ####[facility]ORATORYCLIA [id number] [place] [address] [place] RBC (Bld) [#/Vol] 4.43 10*6/uL Normal 3.90-5.20 [facility] Comment on above: Order Comment: Speci men Type: BLOOD SPECIMENOrdering Facility: [facility] Address: [address] [place] [address] Performed By: #### 5 7021-8 ####[facility] LABORATORYCLIA [id number] [place] [address] [place] WBC (Bld) [#/Vol] 8.55 10*3/uL Normal 3.70-11.00 [facility] Comment on above: Order Comment: Speci men Type: BLOOD SPECIMENOrdering Facility: [facility] Address: [address] [place] [address] [place] [address] Performed By: #### 5 7021-8 ####[facility] LABORATORYIA [id number] [place] [address] [facility] CT BRAIN WO IVCONon 06-05-20 CT BRAIN WO IVCON * * *Final Report* * * DATE OF EXAM: Jun 05 2022 8:06PM [facility] [place] BRAIN WO IVCON / [...] base and imaged soft tissues are unremarkable. Aerobics Teacher (topogram) images: Unremarkable. 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: INES Transcribe Date/Time: Jun 05 2022 8:12P Dictated by : ALICE MARINA MD This examination was interpreted and the report reviewed and electronically signed by: ALICE MARINA MD on Jun 05 2022 8:13PM EST [id number] Normal [facility] Comprehensive metabolic 2000 panelon 06-05-2022 Albumin [Mass/Vol] 4.0 g/dL Normal 3.9-4.9 [facility] Comment on above: Order Comment: Speci men Type: BLOOD SPECIMENOrdering Facility: [facility] Address: [address] [address] Performed By: #### 2 4323-8, 3016-3 ####[facility] LABORATORYCLIA [id number] [place] [address] [place] ALP [Catalytic activity/Vol] 92 U/L Normal 34-123 [facility] Comment on above: Order Comment: Speci men Type: BLOOD SPECIMENOrdering Facility: [facility] Address: [address] [place] [address] Performed By: #### 2 4323-8, 6-3 ####[facility]ORATORYCLIA [id number] [address] ALT [Catalytic activity/Vol] 14 U/L Normal 7-38 [facility] Comment on above: Order Comment: Speci men Type: BLOOD SPECIMENOrdering Facility: [facility] Address: [address] [place] [address] Performed By: #### 2 4323-8, 6-3 ####[facility] LABORATORYCLIA [id number] [place] [address] [place] Anion gap [Moles/Vol] 9 mmol/L Normal 9-18 [facility] Comment on above: Order Comment: Speci men Type: BLOOD SPECIMENOrdering Facility: [facility] Address: [address] [place] [address] Performed By: #### 2 4323-8, 6-3 ####LEUNG LABORATORYCLIA [id number] [address] [place] AST [Catalytic activity/Vol] 22 U/L Normal 13-35 [facility] Comment on above: Order Comment: Speci men Type: BLOOD SPECIMENOrdering Facility: [facility] Address: [address] [place] [address] Performed By: #### 2 4323-8, 6-3 ####LEUNG LABORATORYCLIA [id number] [place] [address] [place] Bilirubin [Mass/Vol] 0.5 mg/dL Normal 0.2-1.3 [facility] Comment on above: Order Comment: Speci men Type: BLOOD SPECIMENOrdering Facility: [facility] Address: [address] Performed By: #### 2 4323-8, 3016-3 ####LEUNG LABORATORYCLIA [id number] [place] [address] [place] Calcium [Mass/Vol] 9.5 mg/dL Normal 8.5-10.2 [facility] Comment on above: Order Comment: Speci men Type: BLOOD SPECIMENOrdering Facility: [facility] Address: [address] [place], [place] [address] Performed By: #### 2 4323-8, 3015-3 ####LEUNG LABORATORYCLIA [id number] [place] [address] [place] Chloride [Moles/Vol] 107 mmol/L High 97-105 [facility] Comment on above: Order Comment: Speci men Type: BLOOD SPECIMENOrdering Facility: [facility] Address: [address] Performed By: #### 2 4323-8, 6-3 ####LEUNG LABORATORYCLIA [id number] [place] [address] [place] CO2 [Moles/Vol] 27 mmol/L Normal 22-30 [facility] Comment on above: Order Comment: Speci men Type: BLOOD SPECIMENOrdering Facility: [facility] Address: [address] Performed By: #### 2 4323-8, 6-3 ####LEUNG LABORATORYCLIA [id number] [place] [address] [place] Creatinine [Mass/Vol] 0.84 mg/dL Normal 0.58-0.96 [facility] Comment on above: Order Comment: Speci men Type: BLOOD SPECIMENOrdering Facility: [facility] Address: [address] Performed By: #### 2 4323-8, 6-3 ####LEUNG LABORATORYCLIA [id number] [place] [address] [place] ESTIMATED GLOMERULAR FILTRATION RATE 71 mL/min/1.73m??? Normal >=60 [facility] Comment on above: Order Comment: Bisi naranjo Type: BLOOD SPECIMENOrdering Facility: [facility] Address: [address] [place] [address] Result Comment: Farheen mated Glomerular Filtration Rate [...] actual GFR. Performed By: #### 2 4323-8, 6-3 ####LEUNG LABORATORYCLIA [id number] [place] [address] [place] Glucose [Mass/Vol] 91 mg/dL Normal 74-99 [facility] Comment on above: Order Comment: Bisi naranjo Type: BLOOD SPECIMENOrdering Facility: [facility] Address: [address] [place] [address] Result Comment: The [place] Diabetes Association (ADA) provides guidance for cutoff [...] Standards of Medical Care in Diabetes 2016, [place] Diabetes Association. Diabetes Care. 2016.39(Suppl 1). Performed By: #### 2 4323-8, 6-3 ####LEUNG LABORATORYCLIA [id number] [place] [address] [place] Potassium [Moles/Vol] 3.8 mmol/L Normal 3.7-5.1 [facility] Comment on above: Order Comment: Speci men Type: BLOOD SPECIMENOrdering Facility: [facility] Address: [address] [place] [address] Performed By: #### 2 4323-8, 3016-3 ####LEUNG LABORATORYCLIA [id number] [address] Protein [Mass/Vol] 6.9 g/dL Normal 6.3-8.0 [facility] Comment on above: Order Comment: Speci men Type: BLOOD SPECIMENOrdering Facility: [facility] Address: [address] [place] [address] Performed By: #### 2 4323-8, 6-3 ####LEUNG LABORATORYCLIA [id number] [address] STATES [facility] Sodium [Moles/Vol] 143 mmol/L Normal 136-144 [facility] Comment on above: Order Comment: Speci men Type: BLOOD SPECIMENOrdering Facility: [facility] Address: [address] [place] [address] Performed By: #### 2 4323-8, 6-3 ####LEUNG LABORATORYCLIA [id number] [address] STATES [facility] Urea nitrogen [Mass/Vol] 28 mg/dL High 7-21 [facility] Comment on above: Order Comment: Speci men Type: BLOOD SPECIMENOrdering Facility: [facility] Address: [address] [place] [address] Performed By: #### 2 4323-8, 6-3 ####LEUNG LABORATORYCLIA [id number] [address] [place] ECG COMPLETEon 06-05-2022 ECG COMPLETE Ventricular Rate : 9 5 BPM Atrial Rate : 95 BPM P-R Interval : 172 ms QRS Duration : 114 ms Q-T Interval : 388 ms QTC Calculation(Bazett) : 487 ms Calculated P [place] : 42 degrees Calculated R [place] : -32 degrees Calculated T [place] : 32 degrees NORMAL SINUS RHYTHM WITH SINUS ARRHYTHMIA LEFT AXIS DEVIATION INCOMPLETE RIGHT BUNDLE BRANCH BLOCK MINIMAL VOLTAGE CRITERIA FOR LVH, MAY BE NORMAL VARIANT INFERIOR INFARCT , AGE UNDETERMINED T WAVE ABNORMALITY, CONSIDER ANTERIOR ISCHEMIA ABNORMAL ECG no STEMI 2036 Confirmed by MD TAYLOR BENJAMIN ([id number]), film editor supervisor CARON DIAZ ([id number]) on 06/06/2022 6:59:18 AM NAME : CHAY TEAGUE PID : [id number] : 1945 Gender : Female Race : Unknown ORD : [id number] Procedure Date : Jun 05 2022 20:37:48 Edit Date : Jun 06 2022 06:59:23 Diagnosis: NORMAL SINUS RHYTHM WITH SINUS ARRHYTHMIA LEFT AXIS DEVIATION INCOMPLETE RIGHT BUNDLE BRANCH BLOCK MINIMAL VOLTAGE CRITERIA FOR LVH, MAY BE NORMAL VARIANT INFERIOR INFARCT , AGE UNDETERMINED T WAVE ABNORMALITY, CONSIDER ANTERIOR ISCHEMIA ABNORMAL ECG no STEMI 2036 Confirmed by MD TAYLOR BENJAMIN ([id number]), film editor supervisor CARON DIAZ ([id number]) on 06/06/2022 6:59:18 AM Test Reason : Arrhythmia Location : 1 : ER ED Overread By : MD TAYLOR BENJAMIN Edited By : CARON DIAZ Referred By : , Acquired by : NE, [facility] ED NOTEon 06-05-2022 ED NOTE HNO ID: [id number] Author: Jame Leavitt, RN Service: Nursing Author Type: Registered Nurse [...] self in triage. Denies SOB and CP. [facility] ED PROV NOTEon 06-05-2022 ED PROV NOTE HNO ID: [id number] Author: Riccardo Taylor DO Service: Emergency Medicine [...] cystitis without hematuria COVID-19 test performed per [facility] [place] policy for suspected COVID community exposure. MDM [...] who will discuss the case with psychiatry chief radiation therapist. 23:48 - Now intermittently agitated trying to get out of bed. QTc normal. Haldol 2 mg IV ordered. ED ATTENDING SIGN OUT NOTE Code Status: Full Code Presentation / Findings / Interventions / Plan / Items (more content not included)... Normal [facility] Ethanol [facility] Ethanol [Mass/Vol] mg/dL Normal <11 [facility] Comment on above: Order Comment: Speci men Type: BLOOD SPECIMENOrdering Facility: [facility] Address: [address] [place] [address] Performed By: #### 5 643-2 ####HALLIDAY LABORATORYCLIA [id number] [place] [address] [place] SARS-CoV-2 RNA Resp Ql TATI+p robeon 06-05-2022 SARS-CoV-2 (COVID-19) RNA TATI+probe Ql (Resp) SARS-CoV-2 (Agent of COVID-19) Not Detected by RT-PCR or equivalent method. Normal Not Detected [facility] Comment on above: Order Comment: Speci men Type: SWAB OF INTERNAL NOSEOrdering Facility: [facility] Address: [address] [place] [address] Result Comment: This test has been authorized by FDA under an Emergency Use Authorization (EUA). Performed By: #### 9 4500-6 ####HALLIDAY LABORATORYCLIA [id number] [address] TOX SCREEN ROUT URon 022 Amphetamines Confirm (U) [Mass/Vol] Negative Normal Negative [facility] Comment on above: Order Comment: Speci men Type: URINE SPECIMENOrdering Facility: [facility] Address: [address] [place] [address] Result Comment: Cuto ff threshold at 1000 ng/mL. Performed By: #### U TOX2 ####LEUNG LABORATORYCLIA [id number] [address] BARBITURATES, URINE Negative Normal Negative [facility] Comment on above: Order Comment: Speci men Type: URINE SPECIMENOrdering Facility: [facility] Address: [address] [place] [address] Result Comment: Cuto ff threshold at 200 ng/mL. Performed By: #### U TOX2 ####LEUNG LABORATORYCLIA [id number] [place] [address] [place] BENZODIAZEPINES, UR Negative Normal Negative [facility] Comment on above: Order Comment: Speci men Type: URINE SPECIMENOrdering Facility: [facility] Address: [address] [place] [address] Result Comment: Cuto ff threshold at 200 ng/mL. Performed By: #### U TOX2 ####LEUNG LABORATORYCLIA [id number] [address] [place] CANNABINOIDS,URINE Negative Normal Negative [facility] Comment on above: Order Comment: Speci men Type: URINE SPECIMENOrdering Facility: [facility] Address: [address] [place] [address] Result Comment: Cuto ff threshold at 50 ng/mL. Performed By: #### U TOX2 ####LEUNG LABORATORYCLIA [id number] [place] [address] [place] Cocaine Ql (U) Negative Normal Negative [facility] Comment on above: Order Comment: Speci men Type: URINE SPECIMENOrdering Facility: [facility] Address: [address] [place] [address] Result Comment: Cuto ff threshold at 300 ng/mL. Performed By: #### U TOX2 ####LEUNG LABORATORYCLIA [id number] [place] [address] [place] Ethanol (U) [Mass/Vol] <11 Normal <11 [facility] Comment on above: Order Comment: Speci men Type: URINE SPECIMENOrdering Facility: [facility] Address: [address] [place] [address] Performed By: #### U TOX2 ####LEUNG LABORATORYCLIA [id number] [place] [address] [place] Opiates Screen Ql (U) Negative Normal Negative [facility] Comment on above: Order Comment: Speci men Type: URINE SPECIMENOrdering Facility: [facility] Address: [address] [place] [address] Result Comment: Cuto ff threshold at 300 ng/mL. Performed By: #### U TOX2 ####LEUNG LABORATORYCLIA [id number] [place] [address] [place] oxyCODONE cutoff Screen (U) [Mass/Vol] Negative Normal Negative [facility] Comment on above: Order Comment: Speci men Type: URINE SPECIMENOrdering Facility: [facility] Address: [address] [place] [address] Result Comment: Cuto ff threshold at 100 ng/mL. Performed By: #### U TOX2 ####LEUNG LABORATORYCLIA [id number] [address] Phencyclidine Ql (U) Negative Normal Negative [facility] Comment on above: Order Comment: Speci men Type: URINE SPECIMENOrdering Facility: [facility] Address: [address] [place] [address] Result Comment: Cuto ff threshold at 25 ng/mL. Performed By: #### U TOX2 ####LEUNG LABORATORYCLIA [id number] [address] [place] TSH SerPl-aCncon 06-05-2022 TSH Qn 4.220 m[IU]/L High 0.270-4.200 [facility] Comment on above: Order Comment: Speci men Type: BLOOD SPECIMENOrdering Facility: [facility] Address: [address] [place] [address] Performed By: #### 2 4323-8, 3016-3 ####LEUNG LABORATORYCLIA [id number] [address] [place] URINALYSIS, REFLEX MICROSCOP ICon 06-05-2022 Bacteria LM.HPF (Urine sed) [#/Area] Moderate Abnormal None Seen [facility] Comment on above: Order Comment: Speci men Type: URINE SPECIMENOrdering Facility: [facility] Address: [address] [place] [address] Performed By: #### L [id number] ####LEUNG LABORATORYCLIA [id number] [address] Bilirubin Ql (U) Negative Normal Negative [facility] Comment on above: Order Comment: Speci men Type: URINE SPECIMENOrdering Facility: [facility] Address: [address] [place] [address] Performed By: #### L [id number] ####LEUNG LABORATORYCLIA [id number] [address] Clarity (Unsp spec) Slightly Cloudy Abnormal Clear [facility] Comment on above: Order Comment: Speci men Type: URINE SPECIMENOrdering Facility: [facility] Address: [address] [place] [address] Performed By: #### L [id number] ####LEUNG LABORATORYCLIA [id number] [address] [place] Color (U) Yellow Normal Yellow [facility] Comment on above: Order Comment: Speci men Type: URINE SPECIMENOrdering Facility: [facility] Address: [address] [place] [address] Performed By: #### L [id number] ####LEUNG LABORATORYCLIA [id number] [place] [address] [place] Epithelial cells LM.HPF (Urine sed) [#/Area] Few Normal [facility] Comment on above: Order Comment: Speci men Type: URINE SPECIMENOrdering Facility: [facility] Address: [address] [place] [address] Result Comment: Few Performed By: #### L [id number] ####LEUNG LABORATORYCLIA [id number] [address] [place] Glucose Test strip (U) [Mass/Vol] Negative Normal Negative [facility] Comment on above: Order Comment: Speci men Type: URINE SPECIMENOrdering Facility: [facility] Address: [address] [place] [address] Performed By: #### L [id number] ####LEUNG LABORATORYCLIA [id number] [address] Hemoglobin Ql (U) Trace Abnormal Negative [facility] Comment on above: Order Comment: Speci men Type: URINE SPECIMENOrdering Facility: [facility] Address: [address] [place] [address] Performed By: #### L [id number] ####LEUNG LABORATORYCLIA [id number] [address] [place] Ketones Ql (U) Negative Normal Negative [facility] Comment on above: Order Comment: Speci men Type: URINE SPECIMENOrdering Facility: [facility] Address: [address] [place] [address] Performed By: #### L [id number] ####LEUNG LABORATORYCLIA [id number] [address] [place] Leukocyte esterase Test strip Ql (U) 2+ Abnormal Negative [facility] Comment on above: Order Comment: Speci men Type: URINE SPECIMENOrdering Facility: [facility] Address: [address] [place] [address] Performed By: #### L [id number] ####LEUNG LABORATORYCLIA [id number] [place] [address] [place] Nitrite Ql (U) Negative Normal Negative [facility] Comment on above: Order Comment: Speci men Type: URINE SPECIMENOrdering Facility: [facility] Address: [address] [place] [address] Performed By: #### L [id number] ####LEUNG LABORATORYCLIA [id number] [place] [address] [place] pH (U) 6.0 [pH] Normal 5.0-8.0 [facility] Comment on above: Order Comment: Speci men Type: URINE SPECIMENOrdering Facility: [facility] Address: [address] [place] [address] Performed By: #### L [id number] ####LEUNG LABORATORYCLIA [id number] [address] STATES [facility] Protein (U) [Mass/Vol] Negative Normal Negative [facility] Comment on above: Order Comment: Speci men Type: URINE SPECIMENOrdering Facility: [facility] Address: [address] [place] [address] Performed By: #### L [id number] ####LEUNG LABORATORYCLIA [id number] [place] [address] [place] RBC LM.HPF (Urine sed) [#/Area] 0-3 /HPF Normal 0-3 /HPF [facility] Comment on above: Order Comment: Speci men Type: URINE SPECIMENOrdering Facility: [facility] Address: [address] [place] [address] Performed By: #### L [id number] ####LEUNG LABORATORYCLIA [id number] [place] [address] [place] Specific gravity (U) [Rel density] 1.025 Normal 1.005-1.030 [facility] Comment on above: Order Comment: Speci men Type: URINE SPECIMENOrdering Facility: [facility] Address: [address] [place] [address] Performed By: #### L [id number] ####HALLIDAY LABORATORYCLIA [id number] [address] Urobilinogen Ql (U) 0.2 EU/dL Normal 0.2-1.0 EU/dL [facility] Comment on above: Order Comment: Speci men Type: URINE SPECIMENOrdering Facility: [facility] Address: [address] [place] [address] Performed By: #### L [id number] ####HALLIDAY LABORATORYCLIA [id number] [address] WBC LM.HPF (Urine sed) [#/Area] 11-25 /HPF Abnormal 0-5 /HPF [facility] Comment on above: Order Comment: Speci men Type: URINE SPECIMENOrdering Facility: [facility] Address: [address] [place] [address] Performed By: #### L [id number] ####HALLIDAY LABORATORYCLIA [id number] [address] XR CHEST 1V FRONTAL PORTon 0 06-05-2022 [...] limits Other: . IMPRESSION: No active disease [employer] Cooler Operator: PSCToni Transcribe Date/Time: Jun 05 2022 8:14P Dictated by : ALICE MARINA MD This examination was interpreted and the report reviewed and electronically signed by: ALICE MARINA MD on Jun 05 2022 8:14PM EST [id number] Normal [facility] Anti-Nuclear Antibodyon 10-24 CRESENCIO Titer < 1 : 80 Normal <1:80 [facility] Comment on above: Result Comment: Test ed by Indirect Immunofluorescence Assay (IFA). Performed By: #### A PTT, TSH5, HEMDF, LDH3, DDI2, BMP3M, ESR, FOLT3, URIC3, FEIBC, FERR3, B12, FT4M #### [facility] [address] [place] [address] #### HVAAO, ANA3, HEPAN, B2GPG, B2GPM, B2GPA #### [address] [address] #### LUPUS #### The performing lab is in the report. Lupus Anticoagulant Reflexiv e Panelon 11-12-2021 aPTT Coag (Bld) [Time] 118 s High 32-48 [facility] Comment on above: Performed By: #### A PTT, TSH5, HEMDF, LDH3, DDI2, BMP3M, ESR, FOLT3, URIC3, FEIBC, FERR3, B12, FT4M #### [facility] [address] [place] [address] #### HVAAO, ANA3, HEPAN, B2GPG, B2GPM, B2GPA #### [address] [address] #### LUPUS #### The performing lab is in the report. aPTT Coag (Bld) [Time] 42 s Normal 32-48 [facility] Comment on above: Performed By: #### A PTT, TSH5, HEMDF, LDH3, DDI2, BMP3M, ESR, FOLT3, URIC3, FEIBC, FERR3, B12, FT4M #### [place] [address] [place] [address] #### HVAAO, ANA3, HEPAN, B2GPG, B2GPM, B2GPA #### [address] #### LUPUS #### The performing lab is in the report. dRVVT 1:1 Mix Not Applicable Normal [facility] Comment on above: Performed By: #### A PTT, TSH5, HEMDF, LDH3, DDI2, BMP3M, ESR, FOLT3, URIC3, FEIBC, FERR3, B12, FT4M #### [facility] [address] [place] [address] #### HVAAO, ANA3, HEPAN, B2GPG, B2GPM, B2GPA #### [address] #### LUPUS #### The performing lab is in the report. dRVVT Confirmation Not Applicable Normal Negative [facility] Comment on above: Performed By: #### A PTT, TSH5, HEMDF, LDH3, DDI2, BMP3M, ESR, FOLT3, URIC3, FEIBC, FERR3, B12, FT4M #### [place] [address] [place] [address] #### HVAAO, ANA3, HEPAN, B2GPG, B2GPM, B2GPA #### [address] #### LUPUS #### The performing lab is in the report. dRVVT Screen 29 sec Low [facility] Comment on above: Performed By: #### A PTT, TSH5, HEMDF, LDH3, DDI2, BMP3M, ESR, FOLT3, URIC3, FEIBC, FERR3, B12, FT4M #### [facility] [address] [place] [address] #### HVAAO, ANA3, HEPAN, B2GPG, B2GPM, B2GPA #### [address] #### LUPUS #### The performing lab is in the report. Hexagonal Phospholipid Neutral Reflex Not Applicable Normal Negative [facility] Comment on above: Performed By: #### A PTT, TSH5, HEMDF, LDH3, DDI2, BMP3M, ESR, FOLT3, URIC3, FEIBC, FERR3, B12, FT4M #### [facility] [address] [place] [address] #### HVAAO, ANA3, HEPAN, B2GPG, B2GPM, B2GPA #### [facility] [address] [place] [address] #### LUPUS #### The performing lab is in the report. Lupus Anticoagulant Interpretation See Note Normal [facility] Comment on above: Result Comment: Lupu s [...] developed and its performance characteristics determined by [employer]. It has not been cleared or approved by the [place] Food and Drug Administration. This test was performed in a CLIA certified laboratory and is intended for clinical purposes. Counseling and informed consent are recommended for genetic testing. Consent forms are available online. Performed by [employer], [address] [place] [id number] [email or web address] MD - Lab. Director Performed By: #### A PTT, TSH5, HEMDF, LDH3, DDI2, BMP3M, ESR, FOLT3, URIC3, FEIBC, FERR3, B12, FT4M #### [facility] [address] [place] [address] #### HVAAO, ANA3, HEPAN, B2GPG, B2GPM, B2GPA #### [facility] [address] [place] [address] #### LUPUS #### The performing lab is in the report. Platelet Neutralization (PTT-D, Confirm) Not Applicable Normal Negative [facility] Comment on above: Performed By: #### A PTT, TSH5, HEMDF, LDH3, DDI2, BMP3M, ESR, FOLT3, URIC3, FEIBC, FERR3, B12, FT4M #### [facility] [address] [place] [address] #### HVAAO, ANA3, HEPAN, B2GPG, B2GPM, B2GPA #### [address] #### LUPUS #### The performing lab is in the report. PT Coag (PPP) [Time] 13.4 s Normal 12.0-15.5 [facility] Comment on above: Performed By: #### A PTT, TSH5, HEMDF, LDH3, DDI2, BMP3M, ESR, FOLT3, URIC3, FEIBC, FERR3, B12, FT4M #### [facility] [address] [place] [address] #### HVAAO, ANA3, HEPAN, B2GPG, B2GPM, B2GPA #### [address] #### LUPUS #### The performing lab is in the report. PTT-D 1:1 Mix Not Applicable Normal 32-48 [facility] Comment on above: Performed By: #### A PTT, TSH5, HEMDF, LDH3, DDI2, BMP3M, ESR, FOLT3, URIC3, FEIBC, FERR3, B12, FT4M #### [place] [address] [place] [address] #### HVAAO, ANA3, HEPAN, B2GPG, B2GPM, B2GPA #### [address] #### LUPUS #### The performing lab is in the report. Reptilase Time 16.5 sec Normal <=21.9 [facility] Comment on above: Performed By: #### A PTT, TSH5, HEMDF, LDH3, DDI2, BMP3M, ESR, FOLT3, URIC3, FEIBC, FERR3, B12, FT4M #### [place] [address] [place] [address] #### HVAAO, ANA3, HEPAN, B2GPG, B2GPM, B2GPA #### [address] #### LUPUS #### The performing lab is in the report. Thrombin Time > 150.0 High 14.7-19.5 [facility] Comment on above: Performed By: #### A PTT, TSH5, HEMDF, LDH3, DDI2, BMP3M, ESR, FOLT3, URIC3, FEIBC, FERR3, B12, FT4M #### [address] [place] [address] #### HVAAO, ANA3, HEPAN, B2GPG, B2GPM, B2GPA #### [address] #### LUPUS #### The performing lab is in the report. Basic Metabolic Panelon 10-23 Anion gap [Moles/Vol] 4 mmol/L Normal 3-13 [facility] Comment on above: Performed By: #### A PTT, TSH5, HEMDF, LDH3, DDI2, BMP3M, ESR, FOLT3, URIC3, FEIBC, FERR3, B12, FT4M #### [place] [address] [place] [address] #### HVAAO, ANA3, HEPAN, B2GPG, B2GPM, B2GPA #### [address] #### LUPUS #### The performing lab is in the report. Calcium [Mass/Vol] 9.0 mg/dL Normal 8.4-10.4 [facility] Comment on above: Performed By: #### A PTT, TSH5, HEMDF, LDH3, DDI2, BMP3M, ESR, FOLT3, URIC3, FEIBC, FERR3, B12, FT4M #### [address] [place] [address] #### HVAAO, ANA3, HEPAN, B2GPG, B2GPM, B2GPA #### [address] #### LUPUS #### The performing lab is in the report. CO2 [Moles/Vol] 30 mmol/L Normal 22-30 [facility] Comment on above: Performed By: #### A PTT, TSH5, HEMDF, LDH3, DDI2, BMP3M, ESR, FOLT3, URIC3, FEIBC, FERR3, B12, FT4M #### [address] [place] [address] #### HVAAO, ANA3, HEPAN, B2GPG, B2GPM, B2GPA #### [address] #### LUPUS #### The performing lab is in the report. Creatinine [Mass/Vol] 0.95 mg/dL Normal 0.52-1.25 [facility] Comment on above: Performed By: #### A PTT, TSH5, HEMDF, LDH3, DDI2, BMP3M, ESR, FOLT3, URIC3, FEIBC, FERR3, B12, FT4M #### [address] [place] [address] #### HVAAO, ANA3, HEPAN, B2GPG, B2GPM, B2GPA #### [address] #### LUPUS #### The performing lab is in the report. GFR/1.73 sq M.predicted among blacks MDRD (S/P/Bld) [Vol rate/Area] 66.2 mL/min/{1.73_m2} Normal >60 [facility] Comment on above: Performed By: #### A PTT, TSH5, HEMDF, LDH3, DDI2, BMP3M, ESR, FOLT3, URIC3, FEIBC, FERR3, B12, FT4M #### [address] [place] [address] #### HVAAO, ANA3, HEPAN, B2GPG, B2GPM, B2GPA #### [facility] [address] [place] [address] #### LUPUS #### The performing lab is in the report. GFR/1.73 sq M.predicted among non-blacks MDRD (S/P/Bld) [Vol rate/Area] 57.1 mL/min/{1.73_m2} Abnormal >60 [facility] Comment on above: Result Comment: KDIG O [...] FOLT3, URIC3, FEIBC, FERR3, B12, FT4M #### [facility] [address] [facility] [place] [address] #### HVAAO, ANA3, HEPAN, B2GPG, B2GPM, B2GPA #### [facility] [address] [place] [address] #### LUPUS #### The performing lab is in the report. Glucose [Mass/Vol] 101 mg/dL High 70-100 [facility] Comment on above: Performed By: #### A PTT, TSH5, HEMDF, LDH3, DDI2, BMP3M, ESR, FOLT3, URIC3, FEIBC, FERR3, B12, FT4M #### [place] [address] [place] [address] #### HVAAO, ANA3, HEPAN, B2GPG, B2GPM, B2GPA #### [address] #### LUPUS #### The performing lab is in the report. Urea nitrogen [Mass/Vol] 16 mg/dL Normal 9-20 [facility] Comment on above: Performed By: #### A PTT, TSH5, HEMDF, LDH3, DDI2, BMP3M, ESR, FOLT3, URIC3, FEIBC, FERR3, B12, FT4M #### [address] [place] [address] #### HVAAO, ANA3, HEPAN, B2GPG, B2GPM, B2GPA #### [address] #### LUPUS #### The performing lab is in the report. Chloride [Moles/Vol] 109 mmol/L High 98-107 [facility] Comment on above: Performed By: #### A PTT, TSH5, HEMDF, LDH3, DDI2, BMP3M, ESR, FOLT3, URIC3, FEIBC, FERR3, B12, FT4M #### [address] [place] [address] #### HVAAO, ANA3, HEPAN, B2GPG, B2GPM, B2GPA #### [address] #### LUPUS #### The performing lab is in the report. Potassium [Moles/Vol] 4.2 mmol/L Normal 3.5-5.1 [facility] Comment on above: Performed By: #### A PTT, TSH5, HEMDF, LDH3, DDI2, BMP3M, ESR, FOLT3, URIC3, FEIBC, FERR3, B12, FT4M #### [place] [address] [place] #### HVAAO, ANA3, HEPAN, B2GPG, B2GPM, B2GPA #### [address] #### LUPUS #### The performing lab is in the report. Sodium [Moles/Vol] 142 mmol/L Normal 135-145 [facility] Comment on above: Performed By: #### A PTT, TSH5, HEMDF, LDH3, DDI2, BMP3M, ESR, FOLT3, URIC3, FEIBC, FERR3, B12, FT4M #### [facility] [address] [place] [address] #### HVAAO, ANA3, HEPAN, B2GPG, B2GPM, B2GPA #### [address] #### LUPUS #### The performing lab is in the report. Hemogram w/ Autodiffon 11-10 Abs Baso Cnt 0.1 10*3/uL Normal 0.0-0.2 [facility] Comment on above: Performed By: #### A PTT, TSH5, HEMDF, LDH3, DDI2, BMP3M, ESR, FOLT3, URIC3, FEIBC, FERR3, B12, FT4M #### [facility] [address] [place] #### HVAAO, ANA3, HEPAN, B2GPG, B2GPM, B2GPA #### [address] #### LUPUS #### The performing lab is in the report. Abs Neutrophile Cnt 5.2 10*3/uL Normal 1.8-7.0 [facility] Comment on above: Performed By: #### A PTT, TSH5, HEMDF, LDH3, DDI2, BMP3M, ESR, FOLT3, URIC3, FEIBC, FERR3, B12, FT4M #### [facility] [address] [place] #### HVAAO, ANA3, HEPAN, B2GPG, B2GPM, B2GPA #### [address] #### LUPUS #### The performing lab is in the report. Basophils/100 WBC (Bld) 0.7 % Normal 0.0-2.0 [facility] Comment on above: Performed By: #### A PTT, TSH5, HEMDF, LDH3, DDI2, BMP3M, ESR, FOLT3, URIC3, FEIBC, FERR3, B12, FT4M #### [facility] [address] [place] [address] #### HVAAO, ANA3, HEPAN, B2GPG, B2GPM, B2GPA #### [address] #### LUPUS #### The performing lab is in the report. Eosinophils (Bld) [#/Vol] 0.5 10*3/uL Normal 0.0-0.5 [facility] Comment on above: Performed By: #### A PTT, TSH5, HEMDF, LDH3, DDI2, BMP3M, ESR, FOLT3, URIC3, FEIBC, FERR3, B12, FT4M #### [facility] [address] [place] #### HVAAO, ANA3, HEPAN, B2GPG, B2GPM, B2GPA #### [address] #### LUPUS #### The performing lab is in the report. Eosinophils/100 WBC (Bld) 5.8 % Normal 1.0-6.0 [facility] Comment on above: Performed By: #### A PTT, TSH5, HEMDF, LDH3, DDI2, BMP3M, ESR, FOLT3, URIC3, FEIBC, FERR3, B12, FT4M #### [facility] [address] [place] [address] #### HVAAO, ANA3, HEPAN, B2GPG, B2GPM, B2GPA #### [address] #### LUPUS #### The performing lab is in the report. Erythrocyte distribution width (RBC) [Ratio] 15.2 % High 11.5-14.5 [facility] Comment on above: Performed By: #### A PTT, TSH5, HEMDF, LDH3, DDI2, BMP3M, ESR, FOLT3, URIC3, FEIBC, FERR3, B12, FT4M #### [facility] [address] [place] [place] [address] #### HVAAO, ANA3, HEPAN, B2GPG, B2GPM, B2GPA #### [address] #### LUPUS #### The performing lab is in the report. Granulocytes/100 WBC (Bld) 64.6 % Normal 40.0-80.0 [facility] Comment on above: Performed By: #### A PTT, TSH5, HEMDF, LDH3, DDI2, BMP3M, ESR, FOLT3, URIC3, FEIBC, FERR3, B12, FT4M #### [place] [address] [place] [address] #### HVAAO, ANA3, HEPAN, B2GPG, B2GPM, B2GPA #### [address] #### LUPUS #### The performing lab is in the report. Hematocrit (Bld) [Volume fraction] 37.8 % Normal 35.0-47.0 [facility] Comment on above: Performed By: #### A PTT, TSH5, HEMDF, LDH3, DDI2, BMP3M, ESR, FOLT3, URIC3, FEIBC, FERR3, B12, FT4M #### [place] [address] [place] [address] #### HVAAO, ANA3, HEPAN, B2GPG, B2GPM, B2GPA #### [address] #### LUPUS #### The performing lab is in the report. Hemoglobin (Bld) [Mass/Vol] 12.4 g/dL Normal 11.7-16.0 [facility] Comment on above: Performed By: #### A PTT, TSH5, HEMDF, LDH3, DDI2, BMP3M, ESR, FOLT3, URIC3, FEIBC, FERR3, B12, FT4M #### [facility] [address] [place] [address] #### HVAAO, ANA3, HEPAN, B2GPG, B2GPM, B2GPA #### [address] #### LUPUS #### The performing lab is in the report. Lymphocytes (Bld) [#/Vol] 1.7 10*3/uL Normal 1.0-4.3 [facility] Comment on above: Performed By: #### A PTT, TSH5, HEMDF, LDH3, DDI2, BMP3M, ESR, FOLT3, URIC3, FEIBC, FERR3, B12, FT4M #### [address] [place] [address] #### HVAAO, ANA3, HEPAN, B2GPG, B2GPM, B2GPA #### [address] #### LUPUS #### The performing lab is in the report. Lymphocytes/100 WBC (Bld) 21.0 % Normal 20.0-40.0 [facility] Comment on above: Performed By: #### A PTT, TSH5, HEMDF, LDH3, DDI2, BMP3M, ESR, FOLT3, URIC3, FEIBC, FERR3, B12, FT4M #### [address] [place] [address] #### HVAAO, ANA3, HEPAN, B2GPG, B2GPM, B2GPA #### [address] #### LUPUS #### The performing lab is in the report. MCH (RBC) [Entitic mass] 30.5 pg Normal 26.0-34.0 [facility] Comment on above: Performed By: #### A PTT, TSH5, HEMDF, LDH3, DDI2, BMP3M, ESR, FOLT3, URIC3, FEIBC, FERR3, B12, FT4M #### [address] [place] [address] #### HVAAO, ANA3, HEPAN, B2GPG, B2GPM, B2GPA #### [address] #### LUPUS #### The performing lab is in the report. MCHC 32.8 % Normal 32.0-36.0 [facility] Comment on above: Performed By: #### A PTT, TSH5, HEMDF, LDH3, DDI2, BMP3M, ESR, FOLT3, URIC3, FEIBC, FERR3, B12, FT4M #### [address] [facility] [place] #### HVAAO, ANA3, HEPAN, B2GPG, B2GPM, B2GPA #### [address] #### LUPUS #### The performing lab is in the report. MCV (RBC) [Entitic vol] 92.9 fL Normal 79.0-98.0 [facility] Comment on above: Performed By: #### A PTT, TSH5, HEMDF, LDH3, DDI2, BMP3M, ESR, FOLT3, URIC3, FEIBC, FERR3, B12, FT4M #### [address] [place] #### HVAAO, ANA3, HEPAN, B2GPG, B2GPM, B2GPA #### [address] #### LUPUS #### The performing lab is in the report. Monocytes (Bld) [#/Vol] 0.6 10*3/uL Normal 0.0-0.8 [facility] Comment on above: Performed By: #### A PTT, TSH5, HEMDF, LDH3, DDI2, BMP3M, ESR, FOLT3, URIC3, FEIBC, FERR3, B12, FT4M #### [place] [address] [place] [place] [address] #### HVAAO, ANA3, HEPAN, B2GPG, B2GPM, B2GPA #### [address] #### LUPUS #### The performing lab is in the report. Monocytes/100 WBC (Bld) 7.9 % Normal 2.0-10.0 [facility] Comment on above: Performed By: #### A PTT, TSH5, HEMDF, LDH3, DDI2, BMP3M, ESR, FOLT3, URIC3, FEIBC, FERR3, B12, FT4M #### [address] [facility] [place] #### HVAAO, ANA3, HEPAN, B2GPG, B2GPM, B2GPA #### [address] #### LUPUS #### The performing lab is in the report. Platelet mean volume (Bld) [Entitic vol] 8.8 fL Normal 7.4-10.4 [facility] Comment on above: Performed By: #### A PTT, TSH5, HEMDF, LDH3, DDI2, BMP3M, ESR, FOLT3, URIC3, FEIBC, FERR3, B12, FT4M #### [address] [facility] [place] #### HVAAO, ANA3, HEPAN, B2GPG, B2GPM, B2GPA #### [address] #### LUPUS #### The performing lab is in the report. Platelets (Bld) [#/Vol] 280 10*3/uL Normal 140-440 [facility] Comment on above: Performed By: #### A PTT, TSH5, HEMDF, LDH3, DDI2, BMP3M, ESR, FOLT3, URIC3, FEIBC, FERR3, B12, FT4M #### [address] [place] [address] #### HVAAO, ANA3, HEPAN, B2GPG, B2GPM, B2GPA #### [place] [address] [place], [place] #### LUPUS #### The performing lab is in the report. RBC (Bld) [#/Vol] 4.07 10*6/uL Normal 3.80-5.20 [facility] Comment on above: Performed By: #### A PTT, TSH5, HEMDF, LDH3, DDI2, BMP3M, ESR, FOLT3, URIC3, FEIBC, FERR3, B12, FT4M #### [facility] [address] [place] [address] #### HVAAO, ANA3, HEPAN, B2GPG, B2GPM, B2GPA #### [address] #### LUPUS #### The performing lab is in the report. WBC (Bld) [#/Vol] 8.0 10*3/uL Normal 3.6-10.7 [facility] Comment on above: Performed By: #### A PTT, TSH5, HEMDF, LDH3, DDI2, BMP3M, ESR, FOLT3, URIC3, FEIBC, FERR3, B12, FT4M #### [facility] [address] [place] [address] #### HVAAO, ANA3, HEPAN, B2GPG, B2GPM, B2GPA #### [address] #### LUPUS #### The performing lab is in the report. SARS-CoV-2 Antigenon 022 SARS-CoV-2 Antigen Negative Normal Negative [facility] Comment on above: Result Comment: A negative result does not rule out the possibility of SARS-CoV-2 infection. NAAT-based methods should be considered for symptomatic patients presenting greater than seven days after onset of symptoms. Method: Lateral flow immunoassay. Fact sheets for healthcare providers and patients can be found at the following sites: https://www.fda.gov/media/832842/download https://www.fda.gov/media/036102/download Performed By: #### A PTT, TSH5, HEMDF, LDH3, DDI2, BMP3M, ESR, FOLT3, URIC3, FEIBC, FERR3, B12, FT4M #### [place] [address] [place] [address] #### HVAAO, ANA3, HEPAN, B2GPG, B2GPM, B2GPA #### [address] #### LUPUS #### The performing lab is in the report. Basic Metabolic Panelon 10-23 Anion gap [Moles/Vol] 5 mmol/L Normal 3-13 [facility] Comment on above: Performed By: #### A PTT, TSH5, HEMDF, LDH3, DDI2, BMP3M, ESR, FOLT3, URIC3, FEIBC, FERR3, B12, FT4M #### [address] [place] [address] #### HVAAO, ANA3, HEPAN, B2GPG, B2GPM, B2GPA #### [address] #### LUPUS #### The performing lab is in the report. Calcium [Mass/Vol] 9.2 mg/dL Normal 8.4-10.4 [facility] Comment on above: Performed By: #### A PTT, TSH5, HEMDF, LDH3, DDI2, BMP3M, ESR, FOLT3, URIC3, FEIBC, FERR3, B12, FT4M #### [address] [place] [address] #### HVAAO, ANA3, HEPAN, B2GPG, B2GPM, B2GPA #### [address] #### LUPUS #### The performing lab is in the report. CO2 [Moles/Vol] 28 mmol/L Normal 22-30 [facility] Comment on above: Performed By: #### A PTT, TSH5, HEMDF, LDH3, DDI2, BMP3M, ESR, FOLT3, URIC3, FEIBC, FERR3, B12, FT4M #### [address] [place] [address] #### HVAAO, ANA3, HEPAN, B2GPG, B2GPM, B2GPA #### [address] #### LUPUS #### The performing lab is in the report. Glucose [Mass/Vol] 106 mg/dL High 70-100 [facility] Comment on above: Performed By: #### A PTT, TSH5, HEMDF, LDH3, DDI2, BMP3M, ESR, FOLT3, URIC3, FEIBC, FERR3, B12, FT4M #### [address] [place] [address] #### HVAAO, ANA3, HEPAN, B2GPG, B2GPM, B2GPA #### [address] #### LUPUS #### The performing lab is in the report. Urea nitrogen [Mass/Vol] 14 mg/dL Normal 9-20 [facility] Comment on above: Performed By: #### A PTT, TSH5, HEMDF, LDH3, DDI2, BMP3M, ESR, FOLT3, URIC3, FEIBC, FERR3, B12, FT4M #### [address] [place] [address] #### HVAAO, ANA3, HEPAN, B2GPG, B2GPM, B2GPA #### [address] #### LUPUS #### The performing lab is in the report. Creatinine [Mass/Vol] 0.88 mg/dL Normal 0.52-1.25 [facility] Comment on above: Performed By: #### A PTT, TSH5, HEMDF, LDH3, DDI2, BMP3M, ESR, FOLT3, URIC3, FEIBC, FERR3, B12, FT4M #### [address] [place] [address] #### HVAAO, ANA3, HEPAN, B2GPG, B2GPM, B2GPA #### [address] [address] #### LUPUS #### The performing lab is in the report. GFR/1.73 sq M.predicted among blacks MDRD (S/P/Bld) [Vol rate/Area] 72.6 mL/min/{1.73_m2} Normal >60 [facility] Comment on above: Performed By: #### A PTT, TSH5, HEMDF, LDH3, DDI2, BMP3M, ESR, FOLT3, URIC3, FEIBC, FERR3, B12, FT4M #### [facility] [address] [place] [address] #### HVAAO, ANA3, HEPAN, B2GPG, B2GPM, B2GPA #### [address] [address] #### LUPUS #### The performing lab is in the report. GFR/1.73 sq M.predicted among non-blacks MDRD (S/P/Bld) [Vol rate/Area] 62.7 mL/min/{1.73_m2} Normal >60 [facility] Comment on above: Result Comment: KDIG O [...] FOLT3, URIC3, FEIBC, FERR3, B12, FT4M #### [address] [place] [address] #### HVAAO, ANA3, HEPAN, B2GPG, B2GPM, B2GPA #### [address] #### LUPUS #### The performing lab is in the report. Chloride [Moles/Vol] 108 mmol/L High 98-107 [facility] Comment on above: Performed By: #### A PTT, TSH5, HEMDF, LDH3, DDI2, BMP3M, ESR, FOLT3, URIC3, FEIBC, FERR3, B12, FT4M #### [address] [place] #### HVAAO, ANA3, HEPAN, B2GPG, B2GPM, B2GPA #### [address] #### LUPUS #### The performing lab is in the report. Potassium [Moles/Vol] 4.1 mmol/L Normal 3.5-5.1 [facility] Comment on above: Performed By: #### A PTT, TSH5, HEMDF, LDH3, DDI2, BMP3M, ESR, FOLT3, URIC3, FEIBC, FERR3, B12, FT4M #### [address] [place] [address] #### HVAAO, ANA3, HEPAN, B2GPG, B2GPM, B2GPA #### [address] #### LUPUS #### The performing lab is in the report. Sodium [Moles/Vol] 141 mmol/L Normal 135-145 [facility] Comment on above: Performed By: #### A PTT, TSH5, HEMDF, LDH3, DDI2, BMP3M, ESR, FOLT3, URIC3, FEIBC, FERR3, B12, FT4M #### [address] [place] [address] #### HVAAO, ANA3, HEPAN, B2GPG, B2GPM, B2GPA #### [facility] [address] [place], [place] #### LUPUS #### The performing lab is in the report. CR Chest Portableon 11-09-19 CR Chest Portable Patient Name: CHAY TEAGUE Diagnostic Radiology ACCESSION EXAM DATE/TIME PROCEDURE ORDERING PROVIDER [id number] 11/09/2021 13:45 EST CR Chest Portable MD FLOR, RENEA CPT code 43627 Reason For Exam (CR Chest Portable) Shortness [...] Transcribed Date and Time: 11/09/2021 2:26 Normal [facility] Hemogram w/ Autodiffon 11-09 Abs Baso Cnt 0.1 10*3/uL Normal 0.0-0.2 [facility] Comment on above: Performed By: #### A PTT, TSH5, HEMDF, LDH3, DDI2, BMP3M, ESR, FOLT3, URIC3, FEIBC, FERR3, B12, FT4M #### [facility] [address] [place] [address] #### HVAAO, ANA3, HEPAN, B2GPG, B2GPM, B2GPA #### [facility] [address] [place] [address] #### LUPUS #### The performing lab is in the report. Abs Neutrophile Cnt 7.7 10*3/uL High 1.8-7.0 [facility] Comment on above: Performed By: #### A PTT, TSH5, HEMDF, LDH3, DDI2, BMP3M, ESR, FOLT3, URIC3, FEIBC, FERR3, B12, FT4M #### [facility] [address] [place] [address] #### HVAAO, ANA3, HEPAN, B2GPG, B2GPM, B2GPA #### [address] #### LUPUS #### The performing lab is in the report. Basophils/100 WBC (Bld) 0.9 % Normal 0.0-2.0 [facility] Comment on above: Performed By: #### A PTT, TSH5, HEMDF, LDH3, DDI2, BMP3M, ESR, FOLT3, URIC3, FEIBC, FERR3, B12, FT4M #### [address] [place] [address] #### HVAAO, ANA3, HEPAN, B2GPG, B2GPM, B2GPA #### [address] #### LUPUS #### The performing lab is in the report. Eosinophils (Bld) [#/Vol] 0.5 10*3/uL Normal 0.0-0.5 [facility] Comment on above: Performed By: #### A PTT, TSH5, HEMDF, LDH3, DDI2, BMP3M, ESR, FOLT3, URIC3, FEIBC, FERR3, B12, FT4M #### [address] [place] [address] #### HVAAO, ANA3, HEPAN, B2GPG, B2GPM, B2GPA #### [address] #### LUPUS #### The performing lab is in the report. Eosinophils/100 WBC (Bld) 4.4 % Normal 1.0-6.0 [facility] Comment on above: Performed By: #### A PTT, TSH5, HEMDF, LDH3, DDI2, BMP3M, ESR, FOLT3, URIC3, FEIBC, FERR3, B12, FT4M #### [place] [address] [place] [place] [address] #### HVAAO, ANA3, HEPAN, B2GPG, B2GPM, B2GPA #### [address] #### LUPUS #### The performing lab is in the report. Erythrocyte distribution width (RBC) [Ratio] 15.4 % High 11.5-14.5 [facility] Comment on above: Performed By: #### A PTT, TSH5, HEMDF, LDH3, DDI2, BMP3M, ESR, FOLT3, URIC3, FEIBC, FERR3, B12, FT4M #### [address] [place] [address] #### HVAAO, ANA3, HEPAN, B2GPG, B2GPM, B2GPA #### [address] #### LUPUS #### The performing lab is in the report. Granulocytes/100 WBC (Bld) 67.5 % Normal 40.0-80.0 [facility] Comment on above: Performed By: #### A PTT, TSH5, HEMDF, LDH3, DDI2, BMP3M, ESR, FOLT3, URIC3, FEIBC, FERR3, B12, FT4M #### [address] [place] [address] #### HVAAO, ANA3, HEPAN, B2GPG, B2GPM, B2GPA #### [address] #### LUPUS #### The performing lab is in the report. Hematocrit (Bld) [Volume fraction] 39.5 % Normal 35.0-47.0 [facility] Comment on above: Performed By: #### A PTT, TSH5, HEMDF, LDH3, DDI2, BMP3M, ESR, FOLT3, URIC3, FEIBC, FERR3, B12, FT4M #### [address] [place] [address] #### HVAAO, ANA3, HEPAN, B2GPG, B2GPM, B2GPA #### [address] #### LUPUS #### The performing lab is in the report. Hemoglobin (Bld) [Mass/Vol] 12.9 g/dL Normal 11.7-16.0 [facility] Comment on above: Performed By: #### A PTT, TSH5, HEMDF, LDH3, DDI2, BMP3M, ESR, FOLT3, URIC3, FEIBC, FERR3, B12, FT4M #### [address] [place] #### HVAAO, ANA3, HEPAN, B2GPG, B2GPM, B2GPA #### [address] #### LUPUS #### The performing lab is in the report. Lymphocytes (Bld) [#/Vol] 2.2 10*3/uL Normal 1.0-4.3 [facility] Comment on above: Performed By: #### A PTT, TSH5, HEMDF, LDH3, DDI2, BMP3M, ESR, FOLT3, URIC3, FEIBC, FERR3, B12, FT4M #### [address] [facility] [place] #### HVAAO, ANA3, HEPAN, B2GPG, B2GPM, B2GPA #### [address] #### LUPUS #### The performing lab is in the report. Lymphocytes/100 WBC (Bld) 19.1 % Low 20.0-40.0 [facility] Comment on above: Performed By: #### A PTT, TSH5, HEMDF, LDH3, DDI2, BMP3M, ESR, FOLT3, URIC3, FEIBC, FERR3, B12, FT4M #### [facility] [address] [place] [address] #### HVAAO, ANA3, HEPAN, B2GPG, B2GPM, B2GPA #### [address] [id number] #### LUPUS #### The performing lab is in the report. MCH (RBC) [Entitic mass] 30.1 pg Normal 26.0-34.0 [facility] Comment on above: Performed By: #### A PTT, TSH5, HEMDF, LDH3, DDI2, BMP3M, ESR, FOLT3, URIC3, FEIBC, FERR3, B12, FT4M #### [facility] [address] [place] [address] #### HVAAO, ANA3, HEPAN, B2GPG, B2GPM, B2GPA #### [address] #### LUPUS #### The performing lab is in the report. MCHC 32.6 % Normal 32.0-36.0 [facility] Comment on above: Performed By: #### A PTT, TSH5, HEMDF, LDH3, DDI2, BMP3M, ESR, FOLT3, URIC3, FEIBC, FERR3, B12, FT4M #### [facility] [address] [place] [address] #### HVAAO, ANA3, HEPAN, B2GPG, B2GPM, B2GPA #### [address] #### LUPUS #### The performing lab is in the report. MCV (RBC) [Entitic vol] 92.4 fL Normal 79.0-98.0 [facility] Comment on above: Performed By: #### A PTT, TSH5, HEMDF, LDH3, DDI2, BMP3M, ESR, FOLT3, URIC3, FEIBC, FERR3, B12, FT4M #### [facility] [address] [place] #### HVAAO, ANA3, HEPAN, B2GPG, B2GPM, B2GPA #### [address] #### LUPUS #### The performing lab is in the report. Monocytes (Bld) [#/Vol] 0.9 10*3/uL High 0.0-0.8 [facility] Comment on above: Performed By: #### A PTT, TSH5, HEMDF, LDH3, DDI2, BMP3M, ESR, FOLT3, URIC3, FEIBC, FERR3, B12, FT4M #### [place] [address] [place] #### HVAAO, ANA3, HEPAN, B2GPG, B2GPM, B2GPA #### [address] #### LUPUS #### The performing lab is in the report. Monocytes/100 WBC (Bld) 8.1 % Normal 2.0-10.0 [facility] Comment on above: Performed By: #### A PTT, TSH5, HEMDF, LDH3, DDI2, BMP3M, ESR, FOLT3, URIC3, FEIBC, FERR3, B12, FT4M #### [address] [place] #### HVAAO, ANA3, HEPAN, B2GPG, B2GPM, B2GPA #### [address] #### LUPUS #### The performing lab is in the report. Platelet mean volume (Bld) [Entitic vol] 8.8 fL Normal 7.4-10.4 [facility] Comment on above: Performed By: #### A PTT, TSH5, HEMDF, LDH3, DDI2, BMP3M, ESR, FOLT3, URIC3, FEIBC, FERR3, B12, FT4M #### [place] [address] [place] #### HVAAO, ANA3, HEPAN, B2GPG, B2GPM, B2GPA #### [address] #### LUPUS #### The performing lab is in the report. Platelets (Bld) [#/Vol] 260 10*3/uL Normal 140-440 [facility] Comment on above: Performed By: #### A PTT, TSH5, HEMDF, LDH3, DDI2, BMP3M, ESR, FOLT3, URIC3, FEIBC, FERR3, B12, FT4M #### [facility] [address] [place] [address] #### HVAAO, ANA3, HEPAN, B2GPG, B2GPM, B2GPA #### [address] #### LUPUS #### The performing lab is in the report. RBC (Bld) [#/Vol] 4.27 10*6/uL Normal 3.80-5.20 [facility] Comment on above: Performed By: #### A PTT, TSH5, HEMDF, LDH3, DDI2, BMP3M, ESR, FOLT3, URIC3, FEIBC, FERR3, B12, FT4M #### [facility] [address] [place] [address] #### HVAAO, ANA3, HEPAN, B2GPG, B2GPM, B2GPA #### [address] #### LUPUS #### The performing lab is in the report. WBC (Bld) [#/Vol] 11.4 10*3/uL High 3.6-10.7 [facility] Comment on above: Performed By: #### A PTT, TSH5, HEMDF, LDH3, DDI2, BMP3M, ESR, FOLT3, URIC3, FEIBC, FERR3, B12, FT4M #### [place] [address] [place] [address] #### HVAAO, ANA3, HEPAN, B2GPG, B2GPM, B2GPA #### [address] #### LUPUS #### The performing lab is in the report. Basic Metabolic Panelon 10-23 Calcium [Mass/Vol] 9.1 mg/dL Normal 8.4-10.4 [facility] Comment on above: Performed By: #### A PTT, TSH5, HEMDF, LDH3, DDI2, BMP3M, ESR, FOLT3, URIC3, FEIBC, FERR3, B12, FT4M #### [place] [address] [place] [address] #### HVAAO, ANA3, HEPAN, B2GPG, B2GPM, B2GPA #### [address] #### LUPUS #### The performing lab is in the report. Anion gap [Moles/Vol] 6 mmol/L Normal 3-13 [facility] Comment on above: Performed By: #### A PTT, TSH5, HEMDF, LDH3, DDI2, BMP3M, ESR, FOLT3, URIC3, FEIBC, FERR3, B12, FT4M #### [facility] [address] [place] [address] #### HVAAO, ANA3, HEPAN, B2GPG, B2GPM, B2GPA #### [address] #### LUPUS #### The performing lab is in the report. CO2 [Moles/Vol] 28 mmol/L Normal 22-30 [facility] Comment on above: Performed By: #### A PTT, TSH5, HEMDF, LDH3, DDI2, BMP3M, ESR, FOLT3, URIC3, FEIBC, FERR3, B12, FT4M #### [address] [place] [address] #### HVAAO, ANA3, HEPAN, B2GPG, B2GPM, B2GPA #### [address] #### LUPUS #### The performing lab is in the report. Creatinine [Mass/Vol] 0.90 mg/dL Normal 0.52-1.25 [facility] Comment on above: Performed By: #### A PTT, TSH5, HEMDF, LDH3, DDI2, BMP3M, ESR, FOLT3, URIC3, FEIBC, FERR3, B12, FT4M #### [facility] [address] [place] [address] #### HVAAO, ANA3, HEPAN, B2GPG, B2GPM, B2GPA #### [facility] [address] [place] [address] #### LUPUS #### The performing lab is in the report. GFR/1.73 sq M.predicted among blacks MDRD (S/P/Bld) [Vol rate/Area] 70.7 mL/min/{1.73_m2} Normal >60 [facility] Comment on above: Performed By: #### A PTT, TSH5, HEMDF, LDH3, DDI2, BMP3M, ESR, FOLT3, URIC3, FEIBC, FERR3, B12, FT4M #### [facility] [address] [place] [address] #### HVAAO, ANA3, HEPAN, B2GPG, B2GPM, B2GPA #### [address] [id number] #### LUPUS #### The performing lab is in the report. GFR/1.73 sq M.predicted among non-blacks MDRD (S/P/Bld) [Vol rate/Area] 61.0 mL/min/{1.73_m2} Normal >60 [facility] Comment on above: Result Comment: KDIG O [...] FOLT3, URIC3, FEIBC, FERR3, B12, FT4M #### [facility] [address] [place] [address] #### HVAAO, ANA3, HEPAN, B2GPG, B2GPM, B2GPA #### [address] #### LUPUS #### The performing lab is in the report. Glucose [Mass/Vol] 136 mg/dL High 70-100 [facility] Comment on above: Performed By: #### A PTT, TSH5, HEMDF, LDH3, DDI2, BMP3M, ESR, FOLT3, URIC3, FEIBC, FERR3, B12, FT4M #### [facility] [address] [place] #### HVAAO, ANA3, HEPAN, B2GPG, B2GPM, B2GPA #### [address] #### LUPUS #### The performing lab is in the report. Urea nitrogen [Mass/Vol] 14 mg/dL Normal 9-20 [facility] Comment on above: Performed By: #### A PTT, TSH5, HEMDF, LDH3, DDI2, BMP3M, ESR, FOLT3, URIC3, FEIBC, FERR3, B12, FT4M #### [facility] [address] [place] #### HVAAO, ANA3, HEPAN, B2GPG, B2GPM, B2GPA #### [address] #### LUPUS #### The performing lab is in the report. Chloride [Moles/Vol] 107 mmol/L Normal 98-107 [facility] Comment on above: Performed By: #### A PTT, TSH5, HEMDF, LDH3, DDI2, BMP3M, ESR, FOLT3, URIC3, FEIBC, FERR3, B12, FT4M #### [place] [address] [place] [address] #### HVAAO, ANA3, HEPAN, B2GPG, B2GPM, B2GPA #### [address] #### LUPUS #### The performing lab is in the report. Potassium [Moles/Vol] 3.7 mmol/L Normal 3.5-5.1 [facility] Comment on above: Performed By: #### A PTT, TSH5, HEMDF, LDH3, DDI2, BMP3M, ESR, FOLT3, URIC3, FEIBC, FERR3, B12, FT4M #### [address] [place] [address] #### HVAAO, ANA3, HEPAN, B2GPG, B2GPM, B2GPA #### [address] #### LUPUS #### The performing lab is in the report. Sodium [Moles/Vol] 142 mmol/L Normal 135-145 [facility] Comment on above: Performed By: #### A PTT, TSH5, HEMDF, LDH3, DDI2, BMP3M, ESR, FOLT3, URIC3, FEIBC, FERR3, B12, FT4M #### [address] [place] [address] #### HVAAO, ANA3, HEPAN, B2GPG, B2GPM, B2GPA #### [address] #### LUPUS #### The performing lab is in the report. Hemogram w/ Autodiffon 11-08 Abs Baso Cnt 0.1 10*3/uL Normal 0.0-0.2 [facility] Comment on above: Performed By: #### A PTT, TSH5, HEMDF, LDH3, DDI2, BMP3M, ESR, FOLT3, URIC3, FEIBC, FERR3, B12, FT4M #### [facility] [address] [place] [address] #### HVAAO, ANA3, HEPAN, B2GPG, B2GPM, B2GPA #### [address] #### LUPUS #### The performing lab is in the report. Abs Neutrophile Cnt 8.0 10*3/uL High 1.8-7.0 [facility] Comment on above: Performed By: #### A PTT, TSH5, HEMDF, LDH3, DDI2, BMP3M, ESR, FOLT3, URIC3, FEIBC, FERR3, B12, FT4M #### [facility] [address] [place] [address] #### HVAAO, ANA3, HEPAN, B2GPG, B2GPM, B2GPA #### [address] #### LUPUS #### The performing lab is in the report. Basophils/100 WBC (Bld) 0.5 % Normal 0.0-2.0 [facility] Comment on above: Performed By: #### A PTT, TSH5, HEMDF, LDH3, DDI2, BMP3M, ESR, FOLT3, URIC3, FEIBC, FERR3, B12, FT4M #### [address] [place] [address] #### HVAAO, ANA3, HEPAN, B2GPG, B2GPM, B2GPA #### [address] #### LUPUS #### The performing lab is in the report. Eosinophils (Bld) [#/Vol] 0.3 10*3/uL Normal 0.0-0.5 [facility] Comment on above: Performed By: #### A PTT, TSH5, HEMDF, LDH3, DDI2, BMP3M, ESR, FOLT3, URIC3, FEIBC, FERR3, B12, FT4M #### [place] [address] [place] [address] #### HVAAO, ANA3, HEPAN, B2GPG, B2GPM, B2GPA #### [address] #### LUPUS #### The performing lab is in the report. Eosinophils/100 WBC (Bld) 2.9 % Normal 1.0-6.0 [facility] Comment on above: Performed By: #### A PTT, TSH5, HEMDF, LDH3, DDI2, BMP3M, ESR, FOLT3, URIC3, FEIBC, FERR3, B12, FT4M #### [address] [place] #### HVAAO, ANA3, HEPAN, B2GPG, B2GPM, B2GPA #### [address] #### LUPUS #### The performing lab is in the report. Erythrocyte distribution width (RBC) [Ratio] 15.2 % High 11.5-14.5 [facility] Comment on above: Performed By: #### A PTT, TSH5, HEMDF, LDH3, DDI2, BMP3M, ESR, FOLT3, URIC3, FEIBC, FERR3, B12, FT4M #### [address] [place] #### HVAAO, ANA3, HEPAN, B2GPG, B2GPM, B2GPA #### [address] #### LUPUS #### The performing lab is in the report. Granulocytes/100 WBC (Bld) 72.6 % Normal 40.0-80.0 [facility] Comment on above: Performed By: #### A PTT, TSH5, HEMDF, LDH3, DDI2, BMP3M, ESR, FOLT3, URIC3, FEIBC, FERR3, B12, FT4M #### [address] [place] [address] #### HVAAO, ANA3, HEPAN, B2GPG, B2GPM, B2GPA #### [address] #### LUPUS #### The performing lab is in the report. Hematocrit (Bld) [Volume fraction] 39.8 % Normal 35.0-47.0 [facility] Comment on above: Performed By: #### A PTT, TSH5, HEMDF, LDH3, DDI2, BMP3M, ESR, FOLT3, URIC3, FEIBC, FERR3, B12, FT4M #### [address] [place] [address] #### HVAAO, ANA3, HEPAN, B2GPG, B2GPM, B2GPA #### [address] #### LUPUS #### The performing lab is in the report. Hemoglobin (Bld) [Mass/Vol] 13.0 g/dL Normal 11.7-16.0 [facility] Comment on above: Performed By: #### A PTT, TSH5, HEMDF, LDH3, DDI2, BMP3M, ESR, FOLT3, URIC3, FEIBC, FERR3, B12, FT4M #### [address] [place] #### HVAAO, ANA3, HEPAN, B2GPG, B2GPM, B2GPA #### [address] #### LUPUS #### The performing lab is in the report. Lymphocytes (Bld) [#/Vol] 1.8 10*3/uL Normal 1.0-4.3 [facility] Comment on above: Performed By: #### A PTT, TSH5, HEMDF, LDH3, DDI2, BMP3M, ESR, FOLT3, URIC3, FEIBC, FERR3, B12, FT4M #### [address] [place] #### HVAAO, ANA3, HEPAN, B2GPG, B2GPM, B2GPA #### [address] #### LUPUS #### The performing lab is in the report. Lymphocytes/100 WBC (Bld) 16.1 % Low 20.0-40.0 [facility] Comment on above: Performed By: #### A PTT, TSH5, HEMDF, LDH3, DDI2, BMP3M, ESR, FOLT3, URIC3, FEIBC, FERR3, B12, FT4M #### [facility] [address] [place] #### HVAAO, ANA3, HEPAN, B2GPG, B2GPM, B2GPA #### [address] #### LUPUS #### The performing lab is in the report. MCH (RBC) [Entitic mass] 30.4 pg Normal 26.0-34.0 [facility] Comment on above: Performed By: #### A PTT, TSH5, HEMDF, LDH3, DDI2, BMP3M, ESR, FOLT3, URIC3, FEIBC, FERR3, B12, FT4M #### [facility] [address] [place] #### HVAAO, ANA3, HEPAN, B2GPG, B2GPM, B2GPA #### [address] #### LUPUS #### The performing lab is in the report. MCHC 32.8 % Normal 32.0-36.0 [facility] Comment on above: Performed By: #### A PTT, TSH5, HEMDF, LDH3, DDI2, BMP3M, ESR, FOLT3, URIC3, FEIBC, FERR3, B12, FT4M #### [facility] [address] [place] #### HVAAO, ANA3, HEPAN, B2GPG, B2GPM, B2GPA #### [address] #### LUPUS #### The performing lab is in the report. MCV (RBC) [Entitic vol] 92.6 fL Normal 79.0-98.0 [facility] Comment on above: Performed By: #### A PTT, TSH5, HEMDF, LDH3, DDI2, BMP3M, ESR, FOLT3, URIC3, FEIBC, FERR3, B12, FT4M #### [facility] [address] [place] [address] #### HVAAO, ANA3, HEPAN, B2GPG, B2GPM, B2GPA #### [address] #### LUPUS #### The performing lab is in the report. Monocytes (Bld) [#/Vol] 0.9 10*3/uL High 0.0-0.8 [facility] Comment on above: Performed By: #### A PTT, TSH5, HEMDF, LDH3, DDI2, BMP3M, ESR, FOLT3, URIC3, FEIBC, FERR3, B12, FT4M #### [facility] [address] [place] #### HVAAO, ANA3, HEPAN, B2GPG, B2GPM, B2GPA #### [address] #### LUPUS #### The performing lab is in the report. Monocytes/100 WBC (Bld) 7.9 % Normal 2.0-10.0 [facility] Comment on above: Performed By: #### A PTT, TSH5, HEMDF, LDH3, DDI2, BMP3M, ESR, FOLT3, URIC3, FEIBC, FERR3, B12, FT4M #### [facility] [address] [place], [place] #### HVAAO, ANA3, HEPAN, B2GPG, B2GPM, B2GPA #### [address] #### LUPUS #### The performing lab is in the report. Platelet mean volume (Bld) [Entitic vol] 8.7 fL Normal 7.4-10.4 [facility] Comment on above: Performed By: #### A PTT, TSH5, HEMDF, LDH3, DDI2, BMP3M, ESR, FOLT3, URIC3, FEIBC, FERR3, B12, FT4M #### [facility] [address] [place] [address] #### HVAAO, ANA3, HEPAN, B2GPG, B2GPM, B2GPA #### [address] #### LUPUS #### The performing lab is in the report. Platelets (Bld) [#/Vol] 236 10*3/uL Normal 140-440 [facility] Comment on above: Performed By: #### A PTT, TSH5, HEMDF, LDH3, DDI2, BMP3M, ESR, FOLT3, URIC3, FEIBC, FERR3, B12, FT4M #### [facility] [address] [place] [address] #### HVAAO, ANA3, HEPAN, B2GPG, B2GPM, B2GPA #### [address] #### LUPUS #### The performing lab is in the report. RBC (Bld) [#/Vol] 4.29 10*6/uL Normal 3.80-5.20 [facility] Comment on above: Performed By: #### A PTT, TSH5, HEMDF, LDH3, DDI2, BMP3M, ESR, FOLT3, URIC3, FEIBC, FERR3, B12, FT4M #### [facility] [address] [place] [place] [address] #### HVAAO, ANA3, HEPAN, B2GPG, B2GPM, B2GPA #### [address] #### LUPUS #### The performing lab is in the report. WBC (Bld) [#/Vol] 11.0 10*3/uL High 3.6-10.7 [facility] Comment on above: Performed By: #### A PTT, TSH5, HEMDF, LDH3, DDI2, BMP3M, ESR, FOLT3, URIC3, FEIBC, FERR3, B12, FT4M #### [facility] [address] [place] [address] #### HVAAO, ANA3, HEPAN, B2GPG, B2GPM, B2GPA #### [address] #### LUPUS #### The performing lab is in the report. APTTon 11-07-2021 aPTT Coag (Bld) [Time] 29.9 s Normal 20.0-30.5 [facility] Comment on above: Result Comment: NOTE : The therapeutic time for Heparin anticoagulation, based on Xa activity inhibition, is an APTT of 46-80 seconds. Performed By: #### A PTT, TSH5, HEMDF, LDH3, DDI2, BMP3M, ESR, FOLT3, URIC3, FEIBC, FERR3, B12, FT4M #### [address] [place] [address] #### HVAAO, ANA3, HEPAN, B2GPG, B2GPM, B2GPA #### [address] #### LUPUS #### The performing lab is in the report. Basic Metabolic Panelon 10-23 Calcium [Mass/Vol] 9.1 mg/dL Normal 8.4-10.4 [facility] Comment on above: Performed By: #### A PTT, TSH5, HEMDF, LDH3, DDI2, BMP3M, ESR, FOLT3, URIC3, FEIBC, FERR3, B12, FT4M #### [address] [place] [address] #### HVAAO, ANA3, HEPAN, B2GPG, B2GPM, B2GPA #### [address] #### LUPUS #### The performing lab is in the report. Anion gap [Moles/Vol] 5 mmol/L Normal 3-13 [facility] Comment on above: Performed By: #### A PTT, TSH5, HEMDF, LDH3, DDI2, BMP3M, ESR, FOLT3, URIC3, FEIBC, FERR3, B12, FT4M #### [facility] [address] [place] [address] #### HVAAO, ANA3, HEPAN, B2GPG, B2GPM, B2GPA #### [address] #### LUPUS #### The performing lab is in the report. CO2 [Moles/Vol] 27 mmol/L Normal 22-30 [facility] Comment on above: Performed By: #### A PTT, TSH5, HEMDF, LDH3, DDI2, BMP3M, ESR, FOLT3, URIC3, FEIBC, FERR3, B12, FT4M #### [place] [address] [facility] #### HVAAO, ANA3, HEPAN, B2GPG, B2GPM, B2GPA #### [address] #### LUPUS #### The performing lab is in the report. Creatinine [Mass/Vol] 0.87 mg/dL Normal 0.52-1.25 [facility] Comment on above: Performed By: #### A PTT, TSH5, HEMDF, LDH3, DDI2, BMP3M, ESR, FOLT3, URIC3, FEIBC, FERR3, B12, FT4M #### [address] [place] [address] #### HVAAO, ANA3, HEPAN, B2GPG, B2GPM, B2GPA #### [address] #### LUPUS #### The performing lab is in the report. GFR/1.73 sq M.predicted among blacks MDRD (S/P/Bld) [Vol rate/Area] 73.7 mL/min/{1.73_m2} Normal >60 [facility] Comment on above: Performed By: #### A PTT, TSH5, HEMDF, LDH3, DDI2, BMP3M, ESR, FOLT3, URIC3, FEIBC, FERR3, B12, FT4M #### [facility] [employer] [facility] [address] [place] [address] #### HVAAO, ANA3, HEPAN, B2GPG, B2GPM, B2GPA #### [facility] [employer] [facility] [address] [place] [address] #### LUPUS #### The performing lab is in the report. GFR/1.73 sq M.predicted among non-blacks MDRD (S/P/Bld) [Vol rate/Area] 63.6 mL/min/{1.73_m2} Normal >60 [facility] Comment on above: Result Comment: KDIG O [...] FOLT3, URIC3, FEIBC, FERR3, B12, FT4M #### [facility] [employer] [facility] [address] [place] [address] #### HVAAO, ANA3, HEPAN, B2GPG, B2GPM, B2GPA #### [facility] [address] [place], [place] #### LUPUS #### The performing lab is in the report. Glucose [Mass/Vol] 111 mg/dL High 70-100 [facility] Comment on above: Performed By: #### A PTT, TSH5, HEMDF, LDH3, DDI2, BMP3M, ESR, FOLT3, URIC3, FEIBC, FERR3, B12, FT4M #### [facility] [address] [place] [address] #### HVAAO, ANA3, HEPAN, B2GPG, B2GPM, B2GPA #### [place] [address] [address] [place], [place] #### LUPUS #### The performing lab is in the report. Urea nitrogen [Mass/Vol] 12 mg/dL Normal 9-20 [facility] Comment on above: Performed By: #### A PTT, TSH5, HEMDF, LDH3, DDI2, BMP3M, ESR, FOLT3, URIC3, FEIBC, FERR3, B12, FT4M #### [facility] [address] [place] [address] #### HVAAO, ANA3, HEPAN, B2GPG, B2GPM, B2GPA #### [place] [address] [place], [place] #### LUPUS #### The performing lab is in the report. Chloride [Moles/Vol] 109 mmol/L High 98-107 [facility] Comment on above: Performed By: #### A PTT, TSH5, HEMDF, LDH3, DDI2, BMP3M, ESR, FOLT3, URIC3, FEIBC, FERR3, B12, FT4M #### [facility] [address] [place] [address] #### HVAAO, ANA3, HEPAN, B2GPG, B2GPM, B2GPA #### [place] [address] [place], [place] #### LUPUS #### The performing lab is in the report. Potassium [Moles/Vol] 3.9 mmol/L Normal 3.5-5.1 [facility] Comment on above: Performed By: #### A PTT, TSH5, HEMDF, LDH3, DDI2, BMP3M, ESR, FOLT3, URIC3, FEIBC, FERR3, B12, FT4M #### [place] [address] [place] [address] #### HVAAO, ANA3, HEPAN, B2GPG, B2GPM, B2GPA #### [address] #### LUPUS #### The performing lab is in the report. Sodium [Moles/Vol] 141 mmol/L Normal 135-145 [facility] Comment on above: Performed By: #### A PTT, TSH5, HEMDF, LDH3, DDI2, BMP3M, ESR, FOLT3, URIC3, FEIBC, FERR3, B12, FT4M #### [address] [place] [address] #### HVAAO, ANA3, HEPAN, B2GPG, B2GPM, B2GPA #### [address] #### LUPUS #### The performing lab is in the report. Hemogram w/ Autodiffon 11-07 Abs Baso Cnt 0.0 10*3/uL Normal 0.0-0.2 [facility] Comment on above: Performed By: #### A PTT, TSH5, HEMDF, LDH3, DDI2, BMP3M, ESR, FOLT3, URIC3, FEIBC, FERR3, B12, FT4M #### [place] [address] [place] [address] #### HVAAO, ANA3, HEPAN, B2GPG, B2GPM, B2GPA #### [address] #### LUPUS #### The performing lab is in the report. Abs Neutrophile Cnt 6.0 10*3/uL Normal 1.8-7.0 [facility] Comment on above: Performed By: #### A PTT, TSH5, HEMDF, LDH3, DDI2, BMP3M, ESR, FOLT3, URIC3, FEIBC, FERR3, B12, FT4M #### [place] [address] [place] [address] #### HVAAO, ANA3, HEPAN, B2GPG, B2GPM, B2GPA #### [address] #### LUPUS #### The performing lab is in the report. Basophils/100 WBC (Bld) 0.5 % Normal 0.0-2.0 [facility] Comment on above: Performed By: #### A PTT, TSH5, HEMDF, LDH3, DDI2, BMP3M, ESR, FOLT3, URIC3, FEIBC, FERR3, B12, FT4M #### [address] [place] [address] #### HVAAO, ANA3, HEPAN, B2GPG, B2GPM, B2GPA #### [address] #### LUPUS #### The performing lab is in the report. Eosinophils (Bld) [#/Vol] 0.4 10*3/uL Normal 0.0-0.5 [facility] Comment on above: Performed By: #### A PTT, TSH5, HEMDF, LDH3, DDI2, BMP3M, ESR, FOLT3, URIC3, FEIBC, FERR3, B12, FT4M #### [address] [place] [address] #### HVAAO, ANA3, HEPAN, B2GPG, B2GPM, B2GPA #### [address] #### LUPUS #### The performing lab is in the report. Eosinophils/100 WBC (Bld) 4.0 % Normal 1.0-6.0 [facility] Comment on above: Performed By: #### A PTT, TSH5, HEMDF, LDH3, DDI2, BMP3M, ESR, FOLT3, URIC3, FEIBC, FERR3, B12, FT4M #### [place] [address] [place] [address] #### HVAAO, ANA3, HEPAN, B2GPG, B2GPM, B2GPA #### [address] #### LUPUS #### The performing lab is in the report. Erythrocyte distribution width (RBC) [Ratio] 15.1 % High 11.5-14.5 [facility] Comment on above: Performed By: #### A PTT, TSH5, HEMDF, LDH3, DDI2, BMP3M, ESR, FOLT3, URIC3, FEIBC, FERR3, B12, FT4M #### [address] [place] #### HVAAO, ANA3, HEPAN, B2GPG, B2GPM, B2GPA #### [address] #### LUPUS #### The performing lab is in the report. Granulocytes/100 WBC (Bld) 64.8 % Normal 40.0-80.0 [facility] Comment on above: Performed By: #### A PTT, TSH5, HEMDF, LDH3, DDI2, BMP3M, ESR, FOLT3, URIC3, FEIBC, FERR3, B12, FT4M #### [address] [place] #### HVAAO, ANA3, HEPAN, B2GPG, B2GPM, B2GPA #### [address] #### LUPUS #### The performing lab is in the report. Hematocrit (Bld) [Volume fraction] 42.6 % Normal 35.0-47.0 [facility] Comment on above: Performed By: #### A PTT, TSH5, HEMDF, LDH3, DDI2, BMP3M, ESR, FOLT3, URIC3, FEIBC, FERR3, B12, FT4M #### [place] [address] [place] [address] #### HVAAO, ANA3, HEPAN, B2GPG, B2GPM, B2GPA #### [address] #### LUPUS #### The performing lab is in the report. Hemoglobin (Bld) [Mass/Vol] 13.9 g/dL Normal 11.7-16.0 [facility] Comment on above: Performed By: #### A PTT, TSH5, HEMDF, LDH3, DDI2, BMP3M, ESR, FOLT3, URIC3, FEIBC, FERR3, B12, FT4M #### [facility] [address] [place] [address] #### HVAAO, ANA3, HEPAN, B2GPG, B2GPM, B2GPA #### [address] #### LUPUS #### The performing lab is in the report. Lymphocytes (Bld) [#/Vol] 2.1 10*3/uL Normal 1.0-4.3 [facility] Comment on above: Performed By: #### A PTT, TSH5, HEMDF, LDH3, DDI2, BMP3M, ESR, FOLT3, URIC3, FEIBC, FERR3, B12, FT4M #### [facility] [address] [place] [address] #### HVAAO, ANA3, HEPAN, B2GPG, B2GPM, B2GPA #### [address] #### LUPUS #### The performing lab is in the report. Lymphocytes/100 WBC (Bld) 22.8 % Normal 20.0-40.0 [facility] Comment on above: Performed By: #### A PTT, TSH5, HEMDF, LDH3, DDI2, BMP3M, ESR, FOLT3, URIC3, FEIBC, FERR3, B12, FT4M #### [facility] [address] [place] [address] #### HVAAO, ANA3, HEPAN, B2GPG, B2GPM, B2GPA #### [address] #### LUPUS #### The performing lab is in the report. MCH (RBC) [Entitic mass] 30.2 pg Normal 26.0-34.0 [facility] Comment on above: Performed By: #### A PTT, TSH5, HEMDF, LDH3, DDI2, BMP3M, ESR, FOLT3, URIC3, FEIBC, FERR3, B12, FT4M #### [facility] [address] [place], [place] #### HVAAO, ANA3, HEPAN, B2GPG, B2GPM, B2GPA #### [address] #### LUPUS #### The performing lab is in the report. MCHC 32.7 % Normal 32.0-36.0 [facility] Comment on above: Performed By: #### A PTT, TSH5, HEMDF, LDH3, DDI2, BMP3M, ESR, FOLT3, URIC3, FEIBC, FERR3, B12, FT4M #### [facility] [address] [place], [place] #### HVAAO, ANA3, HEPAN, B2GPG, B2GPM, B2GPA #### [address] #### LUPUS #### The performing lab is in the report. MCV (RBC) [Entitic vol] 92.4 fL Normal 79.0-98.0 [facility] Comment on above: Performed By: #### A PTT, TSH5, HEMDF, LDH3, DDI2, BMP3M, ESR, FOLT3, URIC3, FEIBC, FERR3, B12, FT4M #### [facility] [address] [place], [place] #### HVAAO, ANA3, HEPAN, B2GPG, B2GPM, B2GPA #### [address] #### LUPUS #### The performing lab is in the report. Monocytes (Bld) [#/Vol] 0.7 10*3/uL Normal 0.0-0.8 [facility] Comment on above: Performed By: #### A PTT, TSH5, HEMDF, LDH3, DDI2, BMP3M, ESR, FOLT3, URIC3, FEIBC, FERR3, B12, FT4M #### [facility] [address] [place] [address] #### HVAAO, ANA3, HEPAN, B2GPG, B2GPM, B2GPA #### [address] #### LUPUS #### The performing lab is in the report. Monocytes/100 WBC (Bld) 7.9 % Normal 2.0-10.0 [facility] Comment on above: Performed By: #### A PTT, TSH5, HEMDF, LDH3, DDI2, BMP3M, ESR, FOLT3, URIC3, FEIBC, FERR3, B12, FT4M #### [facility] [address] [place] [address] #### HVAAO, ANA3, HEPAN, B2GPG, B2GPM, B2GPA #### [address] #### LUPUS #### The performing lab is in the report. Platelet mean volume (Bld) [Entitic vol] 8.7 fL Normal 7.4-10.4 [facility] Comment on above: Performed By: #### A PTT, TSH5, HEMDF, LDH3, DDI2, BMP3M, ESR, FOLT3, URIC3, FEIBC, FERR3, B12, FT4M #### [facility] [address] [place] [address] #### HVAAO, ANA3, HEPAN, B2GPG, B2GPM, B2GPA #### [address] #### LUPUS #### The performing lab is in the report. Platelets (Bld) [#/Vol] 232 10*3/uL Normal 140-440 [facility] Comment on above: Performed By: #### A PTT, TSH5, HEMDF, LDH3, DDI2, BMP3M, ESR, FOLT3, URIC3, FEIBC, FERR3, B12, FT4M #### [facility] [address] [place] [address] #### HVAAO, ANA3, HEPAN, B2GPG, B2GPM, B2GPA #### [address] #### LUPUS #### The performing lab is in the report. RBC (Bld) [#/Vol] 4.61 10*6/uL Normal 3.80-5.20 [facility] Comment on above: Performed By: #### A PTT, TSH5, HEMDF, LDH3, DDI2, BMP3M, ESR, FOLT3, URIC3, FEIBC, FERR3, B12, FT4M #### [facility] [address] [place] [address] #### HVAAO, ANA3, HEPAN, B2GPG, B2GPM, B2GPA #### [address] #### LUPUS #### The performing lab is in the report. WBC (Bld) [#/Vol] 9.2 10*3/uL Normal 3.6-10.7 [facility] Comment on above: Performed By: #### A PTT, TSH5, HEMDF, LDH3, DDI2, BMP3M, ESR, FOLT3, URIC3, FEIBC, FERR3, B12, FT4M #### [facility] [address] [place] [address] #### HVAAO, ANA3, HEPAN, B2GPG, B2GPM, B2GPA #### [address] #### LUPUS #### The performing lab [...] Real-time, RT-PCR This assay was developed by [employer] and distributed under an Emergency Use Authorization (EUA) granted by the FDA for the qualitative detection of nucleic acids from SARS-CoV-2, Influenza A, Influenza B, and Respiratory Syncytial Virus. Provider and patient fact sheets can be found at https://www.fda.gov/media /013493/download and https://www.fda.gov/media /840664/download. Expected Result: Not Detected _ Method: Real-time, RT-PCR This assay was developed by [employer] and distributed under an Emergency Use Authorization (EUA) granted by the FDA for the qualitative detection of nucleic acids from SARS-CoV-2, Influenza A, Influenza B, and Respiratory Syncytial Virus. Provider and patient fact sheets can be found at https://www.fda.gov/media /715896/download and https://www.fda.gov/media /143640/download. Normal [facility] Comment on above: Performed By: #### A PTT, TSH5, HEMDF, LDH3, DDI2, BMP3M, ESR, FOLT3, URIC3, FEIBC, FERR3, B12, FT4M #### [facility] [address] [place] [address] #### HVAAO, ANA3, HEPAN, B2GPG, B2GPM, B2GPA #### [facility] [address] [place] [address] #### LUPUS #### The performing lab is in the report. APTTon 11-06-2021 aPTT Coag (Bld) [Time] 28.1 s Normal 20.0-30.5 [facility] Comment on above: Result Comment: NOTE : The therapeutic time for Heparin anticoagulation, based on Xa activity inhibition, is an APTT of 46-80 seconds. Performed By: #### A PTT, TSH5, HEMDF, LDH3, DDI2, BMP3M, ESR, FOLT3, URIC3, FEIBC, FERR3, B12, FT4M #### [place] [address] [place] [address] #### HVAAO, ANA3, HEPAN, B2GPG, B2GPM, B2GPA #### [address] #### LUPUS #### The performing lab is in the report. Basic Metabolic Panelon 10-23 Anion gap [Moles/Vol] 6 mmol/L Normal 3-13 [facility] Comment on above: Performed By: #### A PTT, TSH5, HEMDF, LDH3, DDI2, BMP3M, ESR, FOLT3, URIC3, FEIBC, FERR3, B12, FT4M #### [address] [facility] [place] #### HVAAO, ANA3, HEPAN, B2GPG, B2GPM, B2GPA #### [address] #### LUPUS #### The performing lab is in the report. Calcium [Mass/Vol] 9.0 mg/dL Normal 8.4-10.4 [facility] Comment on above: Performed By: #### A PTT, TSH5, HEMDF, LDH3, DDI2, BMP3M, ESR, FOLT3, URIC3, FEIBC, FERR3, B12, FT4M #### [address] [place] [address] #### HVAAO, ANA3, HEPAN, B2GPG, B2GPM, B2GPA #### [address] #### LUPUS #### The performing lab is in the report. CO2 [Moles/Vol] 28 mmol/L Normal 22-30 [facility] Comment on above: Performed By: #### A PTT, TSH5, HEMDF, LDH3, DDI2, BMP3M, ESR, FOLT3, URIC3, FEIBC, FERR3, B12, FT4M #### [place] [address] [place] [address] #### HVAAO, ANA3, HEPAN, B2GPG, B2GPM, B2GPA #### [address] #### LUPUS #### The performing lab is in the report. Glucose [Mass/Vol] 105 mg/dL High 70-100 [facility] Comment on above: Performed By: #### A PTT, TSH5, HEMDF, LDH3, DDI2, BMP3M, ESR, FOLT3, URIC3, FEIBC, FERR3, B12, FT4M #### [address] [place] #### HVAAO, ANA3, HEPAN, B2GPG, B2GPM, B2GPA #### [address] #### LUPUS #### The performing lab is in the report. Urea nitrogen [Mass/Vol] 14 mg/dL Normal 9-20 [facility] Comment on above: Performed By: #### A PTT, TSH5, HEMDF, LDH3, DDI2, BMP3M, ESR, FOLT3, URIC3, FEIBC, FERR3, B12, FT4M #### [address] [facility] [place] #### HVAAO, ANA3, HEPAN, B2GPG, B2GPM, B2GPA #### [address] #### LUPUS #### The performing lab is in the report. Creatinine [Mass/Vol] 0.90 mg/dL Normal 0.52-1.25 [facility] Comment on above: Performed By: #### A PTT, TSH5, HEMDF, LDH3, DDI2, BMP3M, ESR, FOLT3, URIC3, FEIBC, FERR3, B12, FT4M #### [place] [address] [place] [address] #### HVAAO, ANA3, HEPAN, B2GPG, B2GPM, B2GPA #### [facility] [employer] [address] [address] #### LUPUS #### The performing lab is in the report. GFR/1.73 sq M.predicted among blacks MDRD (S/P/Bld) [Vol rate/Area] 70.7 mL/min/{1.73_m2} Normal >60 [facility] Comment on above: Performed By: #### A PTT, TSH5, HEMDF, LDH3, DDI2, BMP3M, ESR, FOLT3, URIC3, FEIBC, FERR3, B12, FT4M #### [facility] [address] [place] [address] #### HVAAO, ANA3, HEPAN, B2GPG, B2GPM, B2GPA #### [facility] [employer] [address] [address] #### LUPUS #### The performing lab is in the report. GFR/1.73 sq M.predicted among non-blacks MDRD (S/P/Bld) [Vol rate/Area] 61.0 mL/min/{1.73_m2} Normal >60 [facility] Comment on above: Result Comment: KDIG O [...] FOLT3, URIC3, FEIBC, FERR3, B12, FT4M #### [facility] [address] [place] [address] #### HVAAO, ANA3, HEPAN, B2GPG, B2GPM, B2GPA #### [address] #### LUPUS #### The performing lab is in the report. Potassium [Moles/Vol] 3.6 mmol/L Normal 3.5-5.1 [facility] Comment on above: Performed By: #### A PTT, TSH5, HEMDF, LDH3, DDI2, BMP3M, ESR, FOLT3, URIC3, FEIBC, FERR3, B12, FT4M #### [place] [address] [facility] [place] #### HVAAO, ANA3, HEPAN, B2GPG, B2GPM, B2GPA #### [address] #### LUPUS #### The performing lab is in the report. Chloride [Moles/Vol] 108 mmol/L High 98-107 [facility] Comment on above: Performed By: #### A PTT, TSH5, HEMDF, LDH3, DDI2, BMP3M, ESR, FOLT3, URIC3, FEIBC, FERR3, B12, FT4M #### [place] [address] [facility] [place] #### HVAAO, ANA3, HEPAN, B2GPG, B2GPM, B2GPA #### [address] #### LUPUS #### The performing lab is in the report. Sodium [Moles/Vol] 141 mmol/L Normal 135-145 [facility] Comment on above: Performed By: #### A PTT, TSH5, HEMDF, LDH3, DDI2, BMP3M, ESR, FOLT3, URIC3, FEIBC, FERR3, B12, FT4M #### [place] [address] [place] [address] #### HVAAO, ANA3, HEPAN, B2GPG, B2GPM, B2GPA #### [address] [address] #### LUPUS #### The performing lab is in the report. Hemogram w/ Autodiffon 11-06 Abs Baso Cnt 0.1 10*3/uL Normal 0.0-0.2 [facility] Comment on above: Performed By: #### A PTT, TSH5, HEMDF, LDH3, DDI2, BMP3M, ESR, FOLT3, URIC3, FEIBC, FERR3, B12, FT4M #### [address] [place] [address] #### HVAAO, ANA3, HEPAN, B2GPG, B2GPM, B2GPA #### [address] #### LUPUS #### The performing lab is in the report. Abs Neutrophile Cnt 5.9 10*3/uL Normal 1.8-7.0 [facility] Comment on above: Performed By: #### A PTT, TSH5, HEMDF, LDH3, DDI2, BMP3M, ESR, FOLT3, URIC3, FEIBC, FERR3, B12, FT4M #### [address] [place] [address] #### HVAAO, ANA3, HEPAN, B2GPG, B2GPM, B2GPA #### [address] #### LUPUS #### The performing lab is in the report. Basophils/100 WBC (Bld) 0.7 % Normal 0.0-2.0 [facility] Comment on above: Performed By: #### A PTT, TSH5, HEMDF, LDH3, DDI2, BMP3M, ESR, FOLT3, URIC3, FEIBC, FERR3, B12, FT4M #### [address] [place] [address] #### HVAAO, ANA3, HEPAN, B2GPG, B2GPM, B2GPA #### [address] #### LUPUS #### The performing lab is in the report. Eosinophils (Bld) [#/Vol] 0.3 10*3/uL Normal 0.0-0.5 [facility] Comment on above: Performed By: #### A PTT, TSH5, HEMDF, LDH3, DDI2, BMP3M, ESR, FOLT3, URIC3, FEIBC, FERR3, B12, FT4M #### [facility] [address] [place] [address] #### HVAAO, ANA3, HEPAN, B2GPG, B2GPM, B2GPA #### [address] #### LUPUS #### The performing lab is in the report. Eosinophils/100 WBC (Bld) 3.7 % Normal 1.0-6.0 [facility] Comment on above: Performed By: #### A PTT, TSH5, HEMDF, LDH3, DDI2, BMP3M, ESR, FOLT3, URIC3, FEIBC, FERR3, B12, FT4M #### [address] [place] #### HVAAO, ANA3, HEPAN, B2GPG, B2GPM, B2GPA #### [address] #### LUPUS #### The performing lab is in the report. Erythrocyte distribution width (RBC) [Ratio] 15.2 % High 11.5-14.5 [facility] Comment on above: Performed By: #### A PTT, TSH5, HEMDF, LDH3, DDI2, BMP3M, ESR, FOLT3, URIC3, FEIBC, FERR3, B12, FT4M #### [address] [place] [address] #### HVAAO, ANA3, HEPAN, B2GPG, B2GPM, B2GPA #### [address] #### LUPUS #### The performing lab is in the report. Granulocytes/100 WBC (Bld) 65.8 % Normal 40.0-80.0 [facility] Comment on above: Performed By: #### A PTT, TSH5, HEMDF, LDH3, DDI2, BMP3M, ESR, FOLT3, URIC3, FEIBC, FERR3, B12, FT4M #### [facility] [address] [place] [address] #### HVAAO, ANA3, HEPAN, B2GPG, B2GPM, B2GPA #### [address] #### LUPUS #### The performing lab is in the report. Hematocrit (Bld) [Volume fraction] 39.8 % Normal 35.0-47.0 [facility] Comment on above: Performed By: #### A PTT, TSH5, HEMDF, LDH3, DDI2, BMP3M, ESR, FOLT3, URIC3, FEIBC, FERR3, B12, FT4M #### [address] [place] #### HVAAO, ANA3, HEPAN, B2GPG, B2GPM, B2GPA #### [address] #### LUPUS #### The performing lab is in the report. Hemoglobin (Bld) [Mass/Vol] 13.2 g/dL Normal 11.7-16.0 [facility] Comment on above: Performed By: #### A PTT, TSH5, HEMDF, LDH3, DDI2, BMP3M, ESR, FOLT3, URIC3, FEIBC, FERR3, B12, FT4M #### [address] [place] [address] #### HVAAO, ANA3, HEPAN, B2GPG, B2GPM, B2GPA #### [address] #### LUPUS #### The performing lab is in the report. Lymphocytes (Bld) [#/Vol] 2.0 10*3/uL Normal 1.0-4.3 [facility] Comment on above: Performed By: #### A PTT, TSH5, HEMDF, LDH3, DDI2, BMP3M, ESR, FOLT3, URIC3, FEIBC, FERR3, B12, FT4M #### [facility] [address] [place] [address] #### HVAAO, ANA3, HEPAN, B2GPG, B2GPM, B2GPA #### [address] #### LUPUS #### The performing lab is in the report. Lymphocytes/100 WBC (Bld) 22.0 % Normal 20.0-40.0 [facility] Comment on above: Performed By: #### A PTT, TSH5, HEMDF, LDH3, DDI2, BMP3M, ESR, FOLT3, URIC3, FEIBC, FERR3, B12, FT4M #### [facility] [address] [place] [address] #### HVAAO, ANA3, HEPAN, B2GPG, B2GPM, B2GPA #### [address] #### LUPUS #### The performing lab is in the report. MCH (RBC) [Entitic mass] 30.1 pg Normal 26.0-34.0 [facility] Comment on above: Performed By: #### A PTT, TSH5, HEMDF, LDH3, DDI2, BMP3M, ESR, FOLT3, URIC3, FEIBC, FERR3, B12, FT4M #### [place] [address] [place] [address] #### HVAAO, ANA3, HEPAN, B2GPG, B2GPM, B2GPA #### [address] #### LUPUS #### The performing lab is in the report. MCHC 33.2 % Normal 32.0-36.0 [facility] Comment on above: Performed By: #### A PTT, TSH5, HEMDF, LDH3, DDI2, BMP3M, ESR, FOLT3, URIC3, FEIBC, FERR3, B12, FT4M #### [place] [address] [place] [address] #### HVAAO, ANA3, HEPAN, B2GPG, B2GPM, B2GPA #### [address] #### LUPUS #### The performing lab is in the report. MCV (RBC) [Entitic vol] 90.6 fL Normal 79.0-98.0 [facility] Comment on above: Performed By: #### A PTT, TSH5, HEMDF, LDH3, DDI2, BMP3M, ESR, FOLT3, URIC3, FEIBC, FERR3, B12, FT4M #### [address] [place] #### HVAAO, ANA3, HEPAN, B2GPG, B2GPM, B2GPA #### [address] #### LUPUS #### The performing lab is in the report. Monocytes (Bld) [#/Vol] 0.7 10*3/uL Normal 0.0-0.8 [facility] Comment on above: Performed By: #### A PTT, TSH5, HEMDF, LDH3, DDI2, BMP3M, ESR, FOLT3, URIC3, FEIBC, FERR3, B12, FT4M #### [address] [facility] [place] #### HVAAO, ANA3, HEPAN, B2GPG, B2GPM, B2GPA #### [address] #### LUPUS #### The performing lab is in the report. Monocytes/100 WBC (Bld) 7.8 % Normal 2.0-10.0 [facility] Comment on above: Performed By: #### A PTT, TSH5, HEMDF, LDH3, DDI2, BMP3M, ESR, FOLT3, URIC3, FEIBC, FERR3, B12, FT4M #### [place] [address] [place] [address] #### HVAAO, ANA3, HEPAN, B2GPG, B2GPM, B2GPA #### [address] #### LUPUS #### The performing lab is in the report. Platelet mean volume (Bld) [Entitic vol] 8.7 fL Normal 7.4-10.4 [facility] Comment on above: Performed By: #### A PTT, TSH5, HEMDF, LDH3, DDI2, BMP3M, ESR, FOLT3, URIC3, FEIBC, FERR3, B12, FT4M #### [place] [address] [place] [address] #### HVAAO, ANA3, HEPAN, B2GPG, B2GPM, B2GPA #### [address] #### LUPUS #### The performing lab is in the report. Platelets (Bld) [#/Vol] 207 10*3/uL Normal 140-440 [facility] Comment on above: Performed By: #### A PTT, TSH5, HEMDF, LDH3, DDI2, BMP3M, ESR, FOLT3, URIC3, FEIBC, FERR3, B12, FT4M #### [place] [address] [place] [address] #### HVAAO, ANA3, HEPAN, B2GPG, B2GPM, B2GPA #### [address] #### LUPUS #### The performing lab is in the report. RBC (Bld) [#/Vol] 4.39 10*6/uL Normal 3.80-5.20 [facility] Comment on above: Performed By: #### A PTT, TSH5, HEMDF, LDH3, DDI2, BMP3M, ESR, FOLT3, URIC3, FEIBC, FERR3, B12, FT4M #### [facility] [address] [place] [address] #### HVAAO, ANA3, HEPAN, B2GPG, B2GPM, B2GPA #### [facility] [address] [place], [place] #### LUPUS #### The performing lab is in the report. WBC (Bld) [#/Vol] 9.0 10*3/uL Normal 3.6-10.7 [facility] Comment on above: Performed By: #### A PTT, TSH5, HEMDF, LDH3, DDI2, BMP3M, ESR, FOLT3, URIC3, FEIBC, FERR3, B12, FT4M #### [facility] [address] [facility] [place] [address] #### HVAAO, ANA3, HEPAN, B2GPG, B2GPM, B2GPA #### [address] #### LUPUS #### The performing lab is in the report. APTTon 11-05-2021 aPTT Coag (Bld) [Time] 58.6 s High 20.0-30.5 [facility] Comment on above: Result Comment: NOTE : The therapeutic time for Heparin anticoagulation, based on Xa activity inhibition, is an APTT of 46-80 seconds. Performed By: #### A PTT, TSH5, HEMDF, LDH3, DDI2, BMP3M, ESR, FOLT3, URIC3, FEIBC, FERR3, B12, FT4M ####[facility] [facility] [address] [place] [address]#### HVAAO, ANA3, HEPAN, B2GPG, B2GPM, B2GPA ####[facility] [place] [address] #### LUPUS ####The performing lab is in the report. aPTT Coag (Bld) [Time] 65.8 s High 20.0-30.5 [facility] Comment on above: Result Comment: NOTE : The therapeutic time for Heparin anticoagulation, based on Xa activity inhibition, is an APTT of 46-80 seconds. Performed By: #### A PTT, TSH5, HEMDF, LDH3, DDI2, BMP3M, ESR, FOLT3, URIC3, FEIBC, FERR3, B12, FT4M #### [facility] [employer] [facility] [address] [facility] [address] [place] [address] #### HVAAO, ANA3, HEPAN, B2GPG, B2GPM, B2GPA #### [facility] [employer] [facility] [address] [place], [place] #### LUPUS #### The performing lab is in the report. Acute Hepatitis Panelon - Hep C Antibody Not detected Normal Not Detected [facility] [employer] Comment on above: Result Comment: Patients with DETECTED Hepatitis C Ab results should have a new specimen submitted for supplemental testing with a Hepatitis C Quantitative RNA assay (viral load), if clinically indicated. Performed By: #### A PTT, TSH5, HEMDF, LDH3, DDI2, BMP3M, ESR, FOLT3, URIC3, FEIBC, FERR3, B12, FT4M ####[address] [place] [address]#### HVAAO, ANA3, HEPAN, B2GPG, B2GPM, B2GPA ####[facility] [employer] [address] #### LUPUS ####The performing lab is in the report. Hep A Virus Ab,IgM Not detected Normal Not Detected [facility] [employer] Comment on above: Performed By: #### A PTT, TSH5, HEMDF, LDH3, DDI2, BMP3M, ESR, FOLT3, URIC3, FEIBC, FERR3, B12, FT4M ####[facility] [employer] [address] [place] [address]#### HVAAO, ANA3, HEPAN, B2GPG, B2GPM, B2GPA ####[address] #### LUPUS ####The performing lab is in the report. Hep B Surface Ag Not detected Normal Not Detected [facility] [employer] Comment on above: Performed By: #### A PTT, TSH5, HEMDF, LDH3, DDI2, BMP3M, ESR, FOLT3, URIC3, FEIBC, FERR3, B12, FT4M ####[facility] [facility] [address] [place] [address]#### HVAAO, ANA3, HEPAN, B2GPG, B2GPM, B2GPA ####[place] [address] [place], [place] #### LUPUS ####The performing lab is in the report. Hep B Core IgM Not detected Normal Not Detected [facility] Comment on above: Performed By: #### A PTT, TSH5, HEMDF, LDH3, DDI2, BMP3M, ESR, FOLT3, URIC3, FEIBC, FERR3, B12, FT4M ####[address] [place] [address]#### HVAAO, ANA3, HEPAN, B2GPG, B2GPM, B2GPA ####[address] #### LUPUS ####The performing lab is in the report. Basic Metabolic Panelon 10-23 Calcium [Mass/Vol] 9.1 mg/dL Normal 8.4-10.4 [facility] Comment on above: Performed By: #### A PTT, TSH5, HEMDF, LDH3, DDI2, BMP3M, ESR, FOLT3, URIC3, FEIBC, FERR3, B12, FT4M #### [facility] [address] [facility] [address] [place] [address] #### HVAAO, ANA3, HEPAN, B2GPG, B2GPM, B2GPA #### [address] #### LUPUS #### The performing lab is in the report. Glucose [Mass/Vol] 110 mg/dL High 70-100 [facility] Comment on above: Performed By: #### A PTT, TSH5, HEMDF, LDH3, DDI2, BMP3M, ESR, FOLT3, URIC3, FEIBC, FERR3, B12, FT4M #### [place] [address] [place] [address] #### HVAAO, ANA3, HEPAN, B2GPG, B2GPM, B2GPA #### [address] #### LUPUS #### The performing lab is in the report. Urea nitrogen [Mass/Vol] 13 mg/dL Normal 9-20 [facility] Comment on above: Performed By: #### A PTT, TSH5, HEMDF, LDH3, DDI2, BMP3M, ESR, FOLT3, URIC3, FEIBC, FERR3, B12, FT4M #### [address] [place] #### HVAAO, ANA3, HEPAN, B2GPG, B2GPM, B2GPA #### [address] #### LUPUS #### The performing lab is in the report. Anion gap [Moles/Vol] 3 mmol/L Normal 3-13 [facility] Comment on above: Performed By: #### A PTT, TSH5, HEMDF, LDH3, DDI2, BMP3M, ESR, FOLT3, URIC3, FEIBC, FERR3, B12, FT4M #### [address] [place] #### HVAAO, ANA3, HEPAN, B2GPG, B2GPM, B2GPA #### [address] #### LUPUS #### The performing lab is in the report. CO2 [Moles/Vol] 29 mmol/L Normal 22-30 [facility] Comment on above: Performed By: #### A PTT, TSH5, HEMDF, LDH3, DDI2, BMP3M, ESR, FOLT3, URIC3, FEIBC, FERR3, B12, FT4M #### [place] [address] [place] #### HVAAO, ANA3, HEPAN, B2GPG, B2GPM, B2GPA #### [address] #### LUPUS #### The performing lab is in the report. Creatinine [Mass/Vol] 0.96 mg/dL Normal 0.52-1.25 [facility] Comment on above: Performed By: #### A PTT, TSH5, HEMDF, LDH3, DDI2, BMP3M, ESR, FOLT3, URIC3, FEIBC, FERR3, B12, FT4M #### [facility] [address] [place] [address] #### HVAAO, ANA3, HEPAN, B2GPG, B2GPM, B2GPA #### [address] #### LUPUS #### The performing lab is in the report. GFR/1.73 sq M.predicted among blacks MDRD (S/P/Bld) [Vol rate/Area] 65.4 mL/min/{1.73_m2} Normal >60 [facility] Comment on above: Performed By: #### A PTT, TSH5, HEMDF, LDH3, DDI2, BMP3M, ESR, FOLT3, URIC3, FEIBC, FERR3, B12, FT4M #### [facility] [address] [place] [address] #### HVAAO, ANA3, HEPAN, B2GPG, B2GPM, B2GPA #### [address] #### LUPUS #### The performing lab is in the report. GFR/1.73 sq M.predicted among non-blacks MDRD (S/P/Bld) [Vol rate/Area] 56.4 mL/min/{1.73_m2} Abnormal >60 [facility] Comment on above: Result Comment: KDIG O [...] FOLT3, URIC3, FEIBC, FERR3, B12, FT4M #### [facility] [address] [place] [address] #### HVAAO, ANA3, HEPAN, B2GPG, B2GPM, B2GPA #### [address] [id number] #### LUPUS #### The performing lab is in the report. Chloride [Moles/Vol] 107 mmol/L Normal 98-107 [facility] Comment on above: Performed By: #### A PTT, TSH5, HEMDF, LDH3, DDI2, BMP3M, ESR, FOLT3, URIC3, FEIBC, FERR3, B12, FT4M #### [facility] [address] [place] [address] #### HVAAO, ANA3, HEPAN, B2GPG, B2GPM, B2GPA #### [address] [address] #### LUPUS #### The performing lab is in the report. Potassium [Moles/Vol] 3.8 mmol/L Normal 3.5-5.1 [facility] Comment on above: Performed By: #### A PTT, TSH5, HEMDF, LDH3, DDI2, BMP3M, ESR, FOLT3, URIC3, FEIBC, FERR3, B12, FT4M #### [facility] [address] [place] [address] #### HVAAO, ANA3, HEPAN, B2GPG, B2GPM, B2GPA #### [facility] [address] [place], [place] #### LUPUS #### The performing lab is in the report. Sodium [Moles/Vol] 139 mmol/L Normal 135-145 [facility] Comment on above: Performed By: #### A PTT, TSH5, HEMDF, LDH3, DDI2, BMP3M, ESR, FOLT3, URIC3, FEIBC, FERR3, B12, FT4M #### [facility] [address] [place] [address] #### HVAAO, ANA3, HEPAN, B2GPG, B2GPM, B2GPA #### [facility] [address] [place], [place] #### LUPUS #### The performing lab is in the report. Beta-2 Glycoprotein I IgAon 11-05-2021 Beta-2 Glycoprotein I IgA < 2.0 Normal [facility] Comment on above: Result Comment: Inte rpretive Information: Results equal to or greater than 20 U/mL = POSITIVE Results less than 20 U/mL = NEGATIVE Performed By: #### A PTT, TSH5, HEMDF, LDH3, DDI2, BMP3M, ESR, FOLT3, URIC3, FEIBC, FERR3, B12, FT4M ####[facility] [place] [address]#### HVAAO, ANA3, HEPAN, B2GPG, B2GPM, B2GPA ####[facility] [place], [place] #### LUPUS ####The performing lab is in the report. Beta-2 Glycoprotein I IgGon 11-05-2021 Beta-2 Glycoprotein I IgG < 1.4 Normal [facility] Comment on above: Result Comment: Inte rpretive Information: Results equal to or greater than 20 U/mL = POSITIVE Results less than 20 U/mL = NEGATIVE Performed By: #### A PTT, TSH5, HEMDF, LDH3, DDI2, BMP3M, ESR, FOLT3, URIC3, FEIBC, FERR3, B12, FT4M ####[address] [place] [address]#### HVAAO, ANA3, HEPAN, B2GPG, B2GPM, B2GPA ####[place] [address] [place], [place] #### LUPUS ####The performing lab is in the report. Beta-2 Glycoprotein I IgMon 11-05-2021 Beta-2 Glycoprotein I IgM 2.4 U/mL Normal [facility] Comment on above: Result Comment: Inte rpretive Information: Results equal to or greater than 20 U/mL = POSITIVE Results less than 20 U/mL = NEGATIVE Performed By: #### A PTT, TSH5, HEMDF, LDH3, DDI2, BMP3M, ESR, FOLT3, URIC3, FEIBC, FERR3, B12, FT4M ####[address] [place] [address]#### HVAAO, ANA3, HEPAN, B2GPG, B2GPM, B2GPA ####[address] #### LUPUS ####The performing lab is in the report. D-Dimer, Innovanceon 022 D-Dimer, Innovance 2.22 mg/L High <0.19-0.50 [facility] Comment on above: Result Comment: Inno williamson D-Dimer values of <0.50 mg/L FEU can be used in combination with a pre-test probability model (e.g. Well's) to exclude pulmonary embolism (PE) disease, as well as an aid in the diagnosis of deep vein thrombosis (DVT). Performed By: #### A PTT, TSH5, HEMDF, LDH3, DDI2, BMP3M, ESR, FOLT3, URIC3, FEIBC, FERR3, B12, FT4M ####[address] [place] [address]#### HVAAO, ANA3, HEPAN, B2GPG, B2GPM, B2GPA ####[place] [address] [place], [place] #### LUPUS ####The performing lab is in the report. Ferritinon 11-05-2021 Ferritin [Mass/Vol] 76 ng/mL Normal 11-264 [facility] Comment on above: Performed By: #### A PTT, TSH5, HEMDF, LDH3, DDI2, BMP3M, ESR, FOLT3, URIC3, FEIBC, FERR3, B12, FT4M #### [facility] [address] [place] [address] #### HVAAO, ANA3, HEPAN, B2GPG, B2GPM, B2GPA #### [facility] [address] [place], [place] #### LUPUS #### The performing lab is in the report. Folateon 11-05-2021 Folate 9.8 ng/mL Normal [facility] Comment on above: Result Comment: >2.8 Performed By: #### A PTT, TSH5, HEMDF, LDH3, DDI2, BMP3M, ESR, FOLT3, URIC3, FEIBC, FERR3, B12, FT4M #### [facility] [address] [place] [address] #### HVAAO, ANA3, HEPAN, B2GPG, B2GPM, B2GPA #### [facility] [address] [place], [place] #### LUPUS #### The performing lab is in the report. Free T4on 11-05-2021 Free T4 [Mass/Vol] 1.21 ng/dL Normal 0.78-2.19 [facility] Comment on above: Performed By: #### A PTT, TSH5, HEMDF, LDH3, DDI2, BMP3M, ESR, FOLT3, URIC3, FEIBC, FERR3, B12, FT4M ####[facility] [place] [address]#### HVAAO, ANA3, HEPAN, B2GPG, B2GPM, B2GPA ####[facility] [place], [place] #### LUPUS ####The performing lab is in the report. HIV Ag - Abon 11-05-2021 HIV 1,2 Combo Antigen/Antibody Non-Reactive Normal Non-Reactiv e [facility] Comment on above: Result Comment: The specimen was non-reactive for HIV-1 and HIV-2 antibodies and p24 antigen using an FDA-cleared 4th generation HIV test. Based on this non-reactive screen result, further reflexive testing was not indicated and was, therefore, not performed. Performed By: #### A PTT, TSH5, HEMDF, LDH3, DDI2, BMP3M, ESR, FOLT3, URIC3, FEIBC, FERR3, B12, FT4M ####[facility] [place] [address]#### HVAAO, ANA3, HEPAN, B2GPG, B2GPM, B2GPA ####[facility] [place] [address]#### LUPUS ####The performing lab is in the report. Hemogram w/ Autodiffon 11-05 Abs Baso Cnt 0.1 10*3/uL Normal 0.0-0.2 [facility] Comment on above: Performed By: #### A PTT, TSH5, HEMDF, LDH3, DDI2, BMP3M, ESR, FOLT3, URIC3, FEIBC, FERR3, B12, FT4M #### [facility] [address] [place] [address] #### HVAAO, ANA3, HEPAN, B2GPG, B2GPM, B2GPA #### [facility] [address] [place] [address] #### LUPUS #### The performing lab is in the report. Abs Neutrophile Cnt 5.4 10*3/uL Normal 1.8-7.0 [facility] Comment on above: Performed By: #### A PTT, TSH5, HEMDF, LDH3, DDI2, BMP3M, ESR, FOLT3, URIC3, FEIBC, FERR3, B12, FT4M #### [facility] [address] [place] [address] #### HVAAO, ANA3, HEPAN, B2GPG, B2GPM, B2GPA #### [address] [address] #### LUPUS #### The performing lab is in the report. Basophils/100 WBC (Bld) 1.0 % Normal 0.0-2.0 [facility] Comment on above: Performed By: #### A PTT, TSH5, HEMDF, LDH3, DDI2, BMP3M, ESR, FOLT3, URIC3, FEIBC, FERR3, B12, FT4M #### [facility] [address] [place] [address] #### HVAAO, ANA3, HEPAN, B2GPG, B2GPM, B2GPA #### [address] #### LUPUS #### The performing lab is in the report. Eosinophils (Bld) [#/Vol] 0.4 10*3/uL Normal 0.0-0.5 [facility] Comment on above: Performed By: #### A PTT, TSH5, HEMDF, LDH3, DDI2, BMP3M, ESR, FOLT3, URIC3, FEIBC, FERR3, B12, FT4M #### [address] [place] [address] #### HVAAO, ANA3, HEPAN, B2GPG, B2GPM, B2GPA #### [address] #### LUPUS #### The performing lab is in the report. Eosinophils/100 WBC (Bld) 4.9 % Normal 1.0-6.0 [facility] Comment on above: Performed By: #### A PTT, TSH5, HEMDF, LDH3, DDI2, BMP3M, ESR, FOLT3, URIC3, FEIBC, FERR3, B12, FT4M #### [address] [place] [address] #### HVAAO, ANA3, HEPAN, B2GPG, B2GPM, B2GPA #### [address] #### LUPUS #### The performing lab is in the report. Erythrocyte distribution width (RBC) [Ratio] 15.3 % High 11.5-14.5 [facility] Comment on above: Performed By: #### A PTT, TSH5, HEMDF, LDH3, DDI2, BMP3M, ESR, FOLT3, URIC3, FEIBC, FERR3, B12, FT4M #### [place] [address] [place] [address] #### HVAAO, ANA3, HEPAN, B2GPG, B2GPM, B2GPA #### [address] #### LUPUS #### The performing lab is in the report. Granulocytes/100 WBC (Bld) 60.5 % Normal 40.0-80.0 [facility] Comment on above: Performed By: #### A PTT, TSH5, HEMDF, LDH3, DDI2, BMP3M, ESR, FOLT3, URIC3, FEIBC, FERR3, B12, FT4M #### [place] [address] [place] #### HVAAO, ANA3, HEPAN, B2GPG, B2GPM, B2GPA #### [address] #### LUPUS #### The performing lab is in the report. Hematocrit (Bld) [Volume fraction] 41.4 % Normal 35.0-47.0 [facility] Comment on above: Performed By: #### A PTT, TSH5, HEMDF, LDH3, DDI2, BMP3M, ESR, FOLT3, URIC3, FEIBC, FERR3, B12, FT4M #### [place] [address] [place] [address] #### HVAAO, ANA3, HEPAN, B2GPG, B2GPM, B2GPA #### [address] #### LUPUS #### The performing lab is in the report. Hemoglobin (Bld) [Mass/Vol] 13.8 g/dL Normal 11.7-16.0 [facility] Comment on above: Performed By: #### A PTT, TSH5, HEMDF, LDH3, DDI2, BMP3M, ESR, FOLT3, URIC3, FEIBC, FERR3, B12, FT4M #### [facility] [address] [place] [address] #### HVAAO, ANA3, HEPAN, B2GPG, B2GPM, B2GPA #### [address] #### LUPUS #### The performing lab is in the report. Lymphocytes (Bld) [#/Vol] 2.3 10*3/uL Normal 1.0-4.3 [facility] Comment on above: Performed By: #### A PTT, TSH5, HEMDF, LDH3, DDI2, BMP3M, ESR, FOLT3, URIC3, FEIBC, FERR3, B12, FT4M #### [place] [address] [place] [address] #### HVAAO, ANA3, HEPAN, B2GPG, B2GPM, B2GPA #### [address] #### LUPUS #### The performing lab is in the report. Lymphocytes/100 WBC (Bld) 25.8 % Normal 20.0-40.0 [facility] Comment on above: Performed By: #### A PTT, TSH5, HEMDF, LDH3, DDI2, BMP3M, ESR, FOLT3, URIC3, FEIBC, FERR3, B12, FT4M #### [place] [address] [place] [address] #### HVAAO, ANA3, HEPAN, B2GPG, B2GPM, B2GPA #### [address] #### LUPUS #### The performing lab is in the report. MCH (RBC) [Entitic mass] 30.6 pg Normal 26.0-34.0 [facility] Comment on above: Performed By: #### A PTT, TSH5, HEMDF, LDH3, DDI2, BMP3M, ESR, FOLT3, URIC3, FEIBC, FERR3, B12, FT4M #### [facility] [address] [place] [address] #### HVAAO, ANA3, HEPAN, B2GPG, B2GPM, B2GPA #### [address] #### LUPUS #### The performing lab is in the report. MCHC 33.4 % Normal 32.0-36.0 [facility] Comment on above: Performed By: #### A PTT, TSH5, HEMDF, LDH3, DDI2, BMP3M, ESR, FOLT3, URIC3, FEIBC, FERR3, B12, FT4M #### [facility] [address] [place] [address] #### HVAAO, ANA3, HEPAN, B2GPG, B2GPM, B2GPA #### [address] #### LUPUS #### The performing lab is in the report. MCV (RBC) [Entitic vol] 91.7 fL Normal 79.0-98.0 [facility] Comment on above: Performed By: #### A PTT, TSH5, HEMDF, LDH3, DDI2, BMP3M, ESR, FOLT3, URIC3, FEIBC, FERR3, B12, FT4M #### [address] [place] [address] #### HVAAO, ANA3, HEPAN, B2GPG, B2GPM, B2GPA #### [address] #### LUPUS #### The performing lab is in the report. Monocytes (Bld) [#/Vol] 0.7 10*3/uL Normal 0.0-0.8 [facility] Comment on above: Performed By: #### A PTT, TSH5, HEMDF, LDH3, DDI2, BMP3M, ESR, FOLT3, URIC3, FEIBC, FERR3, B12, FT4M #### [address] [place] [address] #### HVAAO, ANA3, HEPAN, B2GPG, B2GPM, B2GPA #### [address] #### LUPUS #### The performing lab is in the report. Monocytes/100 WBC (Bld) 7.8 % Normal 2.0-10.0 [facility] Comment on above: Performed By: #### A PTT, TSH5, HEMDF, LDH3, DDI2, BMP3M, ESR, FOLT3, URIC3, FEIBC, FERR3, B12, FT4M #### [address] [place] #### HVAAO, ANA3, HEPAN, B2GPG, B2GPM, B2GPA #### [address] #### LUPUS #### The performing lab is in the report. Platelet mean volume (Bld) [Entitic vol] 9.0 fL Normal 7.4-10.4 [facility] Comment on above: Performed By: #### A PTT, TSH5, HEMDF, LDH3, DDI2, BMP3M, ESR, FOLT3, URIC3, FEIBC, FERR3, B12, FT4M #### [address] [place] #### HVAAO, ANA3, HEPAN, B2GPG, B2GPM, B2GPA #### [address] #### LUPUS #### The performing lab is in the report. Platelets (Bld) [#/Vol] 221 10*3/uL Normal 140-440 [facility] Comment on above: Performed By: #### A PTT, TSH5, HEMDF, LDH3, DDI2, BMP3M, ESR, FOLT3, URIC3, FEIBC, FERR3, B12, FT4M #### [address] [place] [id number] #### HVAAO, ANA3, HEPAN, B2GPG, B2GPM, B2GPA #### [address] #### LUPUS #### The performing lab is in the report. RBC (Bld) [#/Vol] 4.51 10*6/uL Normal 3.80-5.20 [facility] Comment on above: Performed By: #### A PTT, TSH5, HEMDF, LDH3, DDI2, BMP3M, ESR, FOLT3, URIC3, FEIBC, FERR3, B12, FT4M #### [address] [place] [address] #### HVAAO, ANA3, HEPAN, B2GPG, B2GPM, B2GPA #### [address] #### LUPUS #### The performing lab is in the report. WBC (Bld) [#/Vol] 8.9 10*3/uL Normal 3.6-10.7 [facility] Comment on above: Performed By: #### A PTT, TSH5, HEMDF, LDH3, DDI2, BMP3M, ESR, FOLT3, URIC3, FEIBC, FERR3, B12, FT4M #### [address] [place] [address] #### HVAAO, ANA3, HEPAN, B2GPG, B2GPM, B2GPA #### [address] #### LUPUS #### The performing lab is in the report. Iron AND TIBCon 11-05-2021 Saturation 20 % Normal 15-50 [facility] Comment on above: Performed By: #### A PTT, TSH5, HEMDF, LDH3, DDI2, BMP3M, ESR, FOLT3, URIC3, FEIBC, FERR3, B12, FT4M ####[address] [place] [address]#### HVAAO, ANA3, HEPAN, B2GPG, B2GPM, B2GPA ####[address] [address] [place], [place] #### LUPUS ####The performing lab is in the report. Total Iron Binding Cap. 296 ug/dL Normal 261-497 [facility] Comment on above: Performed By: #### A PTT, TSH5, HEMDF, LDH3, DDI2, BMP3M, ESR, FOLT3, URIC3, FEIBC, FERR3, B12, FT4M ####[place] [address] [place], [place] #### HVAAO, ANA3, HEPAN, B2GPG, B2GPM, B2GPA ####[place] [address] [place], [place] #### LUPUS ####The performing lab is in the report. Iron, Total 59 ug/dL Normal 37-170 [facility] Comment on above: Performed By: #### A PTT, TSH5, HEMDF, LDH3, DDI2, BMP3M, ESR, FOLT3, URIC3, FEIBC, FERR3, B12, FT4M ####[address] [place], [place] #### HVAAO, ANA3, HEPAN, B2GPG, B2GPM, B2GPA ####[place] [address] [place], [place] #### LUPUS ####The performing lab is in the report. LDHon 11-05-2021 LDH 259 U/L High 120-246 [facility] Comment on above: Performed By: #### A PTT, TSH5, HEMDF, LDH3, DDI2, BMP3M, ESR, FOLT3, URIC3, FEIBC, FERR3, B12, FT4M #### [facility] [address] [place], [place] #### HVAAO, ANA3, HEPAN, B2GPG, B2GPM, B2GPA #### [facility] [address] [place], [place] #### LUPUS #### The performing lab is in the report. Sed Rateon 11-05-2021 Sed Rate 47 mm/h High 0-20 [facility] Comment on above: Performed By: #### A PTT, TSH5, HEMDF, LDH3, DDI2, BMP3M, ESR, FOLT3, URIC3, FEIBC, FERR3, B12, FT4M #### [facility] [address] [place] [address] #### HVAAO, ANA3, HEPAN, B2GPG, B2GPM, B2GPA #### [place] [address] [place], [place] #### LUPUS #### The performing lab is in the report. Thyroid Stim. Hormoneon 10-23 Thyroid Stim. Hormone 3.596 u[IU]/mL Normal 0.465-4.68 0 [facility] Comment on above: Performed By: #### A PTT, TSH5, HEMDF, LDH3, DDI2, BMP3M, ESR, FOLT3, URIC3, FEIBC, FERR3, B12, FT4M #### [facility] [address] [place] [address] #### HVAAO, ANA3, HEPAN, B2GPG, B2GPM, B2GPA #### [place] [address] [place], [place] #### LUPUS #### The performing lab is in the report. Uric Acidon 11-05-2021 Urate [Mass/Vol] 7.3 mg/dL Normal 3.5-8.5 [facility] Comment on above: Performed By: #### A PTT, TSH5, HEMDF, LDH3, DDI2, BMP3M, ESR, FOLT3, URIC3, FEIBC, FERR3, B12, FT4M #### [facility] [address] [place] [place] [address] #### HVAAO, ANA3, HEPAN, B2GPG, B2GPM, B2GPA #### [place] [address] [place], [place] #### LUPUS #### The performing lab is in the report. Vitamin B12on 11-05-2021 Cobalamin (Vitamin B12) [Mass/Vol] 228 pg/mL Low 239-931 [facility] Comment on above: Performed By: #### A PTT, TSH5, HEMDF, LDH3, DDI2, BMP3M, ESR, FOLT3, URIC3, FEIBC, FERR3, B12, FT4M ####[facility] [place] [address]#### HVAAO, ANA3, HEPAN, B2GPG, B2GPM, B2GPA ####[facility] [place], [place] #### LUPUS ####The performing lab is in the report. APTTon 11-04-2021 aPTT Coag (Bld) [Time] 64.3 s High 20.0-30.5 [facility] Comment on above: Result Comment: NOTE : The therapeutic time for Heparin anticoagulation, based on Xa activity inhibition, is an APTT of 46-80 seconds. Performed By: #### A PTT #### [facility] [address] [place] [address] aPTT Coag (Bld) [Time] 61.1 s High 20.0-30.5 [facility] Comment on above: Result Comment: NOTE : The therapeutic time for Heparin anticoagulation, based on Xa activity inhibition, is an APTT of 46-80 seconds. Performed By: #### A PTT, TSH5, HEMDF, LDH3, DDI2, BMP3M, ESR, FOLT3, URIC3, FEIBC, FERR3, B12, FT4M #### [facility] [address] [facility] [place] [address] #### HVAAO, ANA3, HEPAN, B2GPG, B2GPM, B2GPA #### [facility] [address] [place], [place] #### LUPUS #### The performing lab is in the report. aPTT Coag (Bld) [Time] 132.8 s Critically high 20.0-30. 5 [facility] Comment on above: Result Comment: NOTE : The therapeutic time for Heparin anticoagulation, based on Xa activity inhibition, is an APTT of 46-80 seconds. Performed By: #### A PTT, TSH5, HEMDF, LDH3, DDI2, BMP3M, ESR, FOLT3, URIC3, FEIBC, FERR3, B12, FT4M #### [place] [address] [place] [address] #### HVAAO, ANA3, HEPAN, B2GPG, B2GPM, B2GPA #### [address] #### LUPUS #### The performing lab is in the report. aPTT Coag (Bld) [Time] 34.5 s High 20.0-30.5 [facility] Comment on above: Result Comment: NOTE : The therapeutic time for Heparin anticoagulation, based on Xa activity inhibition, is an APTT of 46-80 seconds. Performed By: #### A PTT, TSH5, HEMDF, LDH3, DDI2, BMP3M, ESR, FOLT3, URIC3, FEIBC, FERR3, B12, FT4M #### [address] [place] [address] #### HVAAO, ANA3, HEPAN, B2GPG, B2GPM, B2GPA #### [address] #### LUPUS #### The performing lab is in the report. Basic Metabolic Panelon 10-23 Calcium [Mass/Vol] 9.1 mg/dL Normal 8.4-10.4 [facility] Comment on above: Performed By: #### A PTT, TSH5, HEMDF, LDH3, DDI2, BMP3M, ESR, FOLT3, URIC3, FEIBC, FERR3, B12, FT4M #### [address] [place] [address] #### HVAAO, ANA3, HEPAN, B2GPG, B2GPM, B2GPA #### [address] #### LUPUS #### The performing lab is in the report. Glucose [Mass/Vol] 123 mg/dL High 70-100 [facility] Comment on above: Performed By: #### A PTT, TSH5, HEMDF, LDH3, DDI2, BMP3M, ESR, FOLT3, URIC3, FEIBC, FERR3, B12, FT4M #### [facility] [address] [place] [address] #### HVAAO, ANA3, HEPAN, B2GPG, B2GPM, B2GPA #### [address] #### LUPUS #### The performing lab is in the report. Urea nitrogen [Mass/Vol] 16 mg/dL Normal 9-20 [facility] Comment on above: Performed By: #### A PTT, TSH5, HEMDF, LDH3, DDI2, BMP3M, ESR, FOLT3, URIC3, FEIBC, FERR3, B12, FT4M #### [facility] [address] [address] #### HVAAO, ANA3, HEPAN, B2GPG, B2GPM, B2GPA #### [address] #### LUPUS #### The performing lab is in the report. Anion gap [Moles/Vol] 5 mmol/L Normal 3-13 [facility] Comment on above: Performed By: #### A PTT, TSH5, HEMDF, LDH3, DDI2, BMP3M, ESR, FOLT3, URIC3, FEIBC, FERR3, B12, FT4M #### [place] [address] [place] [address] #### HVAAO, ANA3, HEPAN, B2GPG, B2GPM, B2GPA #### [address] #### LUPUS #### The performing lab is in the report. CO2 [Moles/Vol] 25 mmol/L Normal 22-30 [facility] Comment on above: Performed By: #### A PTT, TSH5, HEMDF, LDH3, DDI2, BMP3M, ESR, FOLT3, URIC3, FEIBC, FERR3, B12, FT4M #### [place] [address] [place] [address] #### HVAAO, ANA3, HEPAN, B2GPG, B2GPM, B2GPA #### [address] #### LUPUS #### The performing lab is in the report. Creatinine [Mass/Vol] 0.94 mg/dL Normal 0.52-1.25 [facility] Comment on above: Performed By: #### A PTT, TSH5, HEMDF, LDH3, DDI2, BMP3M, ESR, FOLT3, URIC3, FEIBC, FERR3, B12, FT4M #### [address] [place] [address] #### HVAAO, ANA3, HEPAN, B2GPG, B2GPM, B2GPA #### [address] #### LUPUS #### The performing lab is in the report. GFR/1.73 sq M.predicted among blacks MDRD (S/P/Bld) [Vol rate/Area] 67.1 mL/min/{1.73_m2} Normal >60 [facility] Comment on above: Performed By: #### A PTT, TSH5, HEMDF, LDH3, DDI2, BMP3M, ESR, FOLT3, URIC3, FEIBC, FERR3, B12, FT4M #### [address] [place] [address] #### HVAAO, ANA3, HEPAN, B2GPG, B2GPM, B2GPA #### [address] #### LUPUS #### The performing lab is in the report. GFR/1.73 sq M.predicted among non-blacks MDRD (S/P/Bld) [Vol rate/Area] 57.9 mL/min/{1.73_m2} Abnormal >60 [facility] Comment on above: Result Comment: KDIG O [...] FOLT3, URIC3, FEIBC, FERR3, B12, FT4M #### [place] [address] [place] [address] #### HVAAO, ANA3, HEPAN, B2GPG, B2GPM, B2GPA #### [address] #### LUPUS #### The performing lab is in the report. Chloride [Moles/Vol] 106 mmol/L Normal 98-107 [facility] Comment on above: Performed By: #### A PTT, TSH5, HEMDF, LDH3, DDI2, BMP3M, ESR, FOLT3, URIC3, FEIBC, FERR3, B12, FT4M #### [facility] [address] [place] [address] #### HVAAO, ANA3, HEPAN, B2GPG, B2GPM, B2GPA #### [address] [address] #### LUPUS #### The performing lab is in the report. Potassium [Moles/Vol] 3.6 mmol/L Normal 3.5-5.1 [facility] Comment on above: Performed By: #### A PTT, TSH5, HEMDF, LDH3, DDI2, BMP3M, ESR, FOLT3, URIC3, FEIBC, FERR3, B12, FT4M #### [facility] [address] [place] [address] #### HVAAO, ANA3, HEPAN, B2GPG, B2GPM, B2GPA #### [address] [id number] #### LUPUS #### The performing lab is in the report. Sodium [Moles/Vol] 135 mmol/L Normal 135-145 [facility] Comment on above: Performed By: #### A PTT, TSH5, HEMDF, LDH3, DDI2, BMP3M, ESR, FOLT3, URIC3, FEIBC, FERR3, B12, FT4M #### [facility] [address] [place] [address] #### HVAAO, ANA3, HEPAN, B2GPG, B2GPM, B2GPA #### [address] [id number] #### LUPUS #### The performing lab is in the report. Echo Complete w/wo Contrasto n 11-04-2021 Echo Complete w/wo Contrast Patient Name: CHAY TEAGUE Ultrasound ACCESSION EXAM DATE/TIME PROCEDURE ORDERING PROVIDER [id number] 11/04/2021 11:49 EST Echo Complete w/wo MD LEBRON PRAMOD Contrast Reason For Exam (Echo Complete w/wo Contrast) DVT, chest pain Report TRANSTHORACIC ECHOCARDIOGRAM PATIENT: Chay Teague STUDY DATE: 11/04/2021 : 1945 AGE: 76 HT/WT: 160 cm (63 88.5 kg in) (194.6 lb) GENDER: F BP: 142 / 87 LOCATION: [facility] PATIENT Inpatient [facility] STATUS: *ORDERING PHYSICIAN: * Cain Lebron *READING PHYSICIAN: * Jayden Muñoz *[employer]: * Iliana Real MD RDCS,AE, PE, RVT [...] volume (SV) (more content not included)... Normal [place] Hemogram w/ Autodiffon 11-04 Abs Baso Cnt 0.1 10*3/uL Normal 0.0-0.2 [facility] Comment on above: Performed By: #### A PTT, TSH5, HEMDF, LDH3, DDI2, BMP3M, ESR, FOLT3, URIC3, FEIBC, FERR3, B12, FT4M #### [place] [address] [place] [address] #### HVAAO, ANA3, HEPAN, B2GPG, B2GPM, B2GPA #### [address] [address] #### LUPUS #### The performing lab is in the report. Abs Neutrophile Cnt 7.2 10*3/uL High 1.8-7.0 [facility] Comment on above: Performed By: #### A PTT, TSH5, HEMDF, LDH3, DDI2, BMP3M, ESR, FOLT3, URIC3, FEIBC, FERR3, B12, FT4M #### [address] [place] [address] #### HVAAO, ANA3, HEPAN, B2GPG, B2GPM, B2GPA #### [address] #### LUPUS #### The performing lab is in the report. Basophils/100 WBC (Bld) 0.8 % Normal 0.0-2.0 [facility] Comment on above: Performed By: #### A PTT, TSH5, HEMDF, LDH3, DDI2, BMP3M, ESR, FOLT3, URIC3, FEIBC, FERR3, B12, FT4M #### [address] [place] [address] #### HVAAO, ANA3, HEPAN, B2GPG, B2GPM, B2GPA #### [address] #### LUPUS #### The performing lab is in the report. Eosinophils (Bld) [#/Vol] 0.5 10*3/uL Normal 0.0-0.5 [facility] Comment on above: Performed By: #### A PTT, TSH5, HEMDF, LDH3, DDI2, BMP3M, ESR, FOLT3, URIC3, FEIBC, FERR3, B12, FT4M #### [address] [place] [address] #### HVAAO, ANA3, HEPAN, B2GPG, B2GPM, B2GPA #### [address] #### LUPUS #### The performing lab is in the report. Eosinophils/100 WBC (Bld) 4.7 % Normal 1.0-6.0 [facility] Comment on above: Performed By: #### A PTT, TSH5, HEMDF, LDH3, DDI2, BMP3M, ESR, FOLT3, URIC3, FEIBC, FERR3, B12, FT4M #### [address] [place] #### HVAAO, ANA3, HEPAN, B2GPG, B2GPM, B2GPA #### [address] #### LUPUS #### The performing lab is in the report. Erythrocyte distribution width (RBC) [Ratio] 15.0 % High 11.5-14.5 [facility] Comment on above: Performed By: #### A PTT, TSH5, HEMDF, LDH3, DDI2, BMP3M, ESR, FOLT3, URIC3, FEIBC, FERR3, B12, FT4M #### [address] [place] #### HVAAO, ANA3, HEPAN, B2GPG, B2GPM, B2GPA #### [address] #### LUPUS #### The performing lab is in the report. Granulocytes/100 WBC (Bld) 64.0 % Normal 40.0-80.0 [facility] Comment on above: Performed By: #### A PTT, TSH5, HEMDF, LDH3, DDI2, BMP3M, ESR, FOLT3, URIC3, FEIBC, FERR3, B12, FT4M #### [address] [place] [address] #### HVAAO, ANA3, HEPAN, B2GPG, B2GPM, B2GPA #### [address] #### LUPUS #### The performing lab is in the report. Hematocrit (Bld) [Volume fraction] 40.2 % Normal 35.0-47.0 [facility] Comment on above: Performed By: #### A PTT, TSH5, HEMDF, LDH3, DDI2, BMP3M, ESR, FOLT3, URIC3, FEIBC, FERR3, B12, FT4M #### [address] [place] #### HVAAO, ANA3, HEPAN, B2GPG, B2GPM, B2GPA #### [address] #### LUPUS #### The performing lab is in the report. Hemoglobin (Bld) [Mass/Vol] 13.2 g/dL Normal 11.7-16.0 [facility] Comment on above: Performed By: #### A PTT, TSH5, HEMDF, LDH3, DDI2, BMP3M, ESR, FOLT3, URIC3, FEIBC, FERR3, B12, FT4M #### [address] [place] #### HVAAO, ANA3, HEPAN, B2GPG, B2GPM, B2GPA #### [address] #### LUPUS #### The performing lab is in the report. Lymphocytes (Bld) [#/Vol] 2.5 10*3/uL Normal 1.0-4.3 [facility] Comment on above: Performed By: #### A PTT, TSH5, HEMDF, LDH3, DDI2, BMP3M, ESR, FOLT3, URIC3, FEIBC, FERR3, B12, FT4M #### [address] [place] #### HVAAO, ANA3, HEPAN, B2GPG, B2GPM, B2GPA #### [address] #### LUPUS #### The performing lab is in the report. Lymphocytes/100 WBC (Bld) 22.3 % Normal 20.0-40.0 [facility] Comment on above: Performed By: #### A PTT, TSH5, HEMDF, LDH3, DDI2, BMP3M, ESR, FOLT3, URIC3, FEIBC, FERR3, B12, FT4M #### [facility] [address] [place], [place] #### HVAAO, ANA3, HEPAN, B2GPG, B2GPM, B2GPA #### [address] #### LUPUS #### The performing lab is in the report. MCH (RBC) [Entitic mass] 30.3 pg Normal 26.0-34.0 [facility] Comment on above: Performed By: #### A PTT, TSH5, HEMDF, LDH3, DDI2, BMP3M, ESR, FOLT3, URIC3, FEIBC, FERR3, B12, FT4M #### [facility] [address] [place], [place] #### HVAAO, ANA3, HEPAN, B2GPG, B2GPM, B2GPA #### [address] #### LUPUS #### The performing lab is in the report. MCHC 32.9 % Normal 32.0-36.0 [facility] Comment on above: Performed By: #### A PTT, TSH5, HEMDF, LDH3, DDI2, BMP3M, ESR, FOLT3, URIC3, FEIBC, FERR3, B12, FT4M #### [place] [address] [place] #### HVAAO, ANA3, HEPAN, B2GPG, B2GPM, B2GPA #### [address] #### LUPUS #### The performing lab is in the report. MCV (RBC) [Entitic vol] 92.0 fL Normal 79.0-98.0 [facility] Comment on above: Performed By: #### A PTT, TSH5, HEMDF, LDH3, DDI2, BMP3M, ESR, FOLT3, URIC3, FEIBC, FERR3, B12, FT4M #### [facility] [address] [place] [address] #### HVAAO, ANA3, HEPAN, B2GPG, B2GPM, B2GPA #### [address] #### LUPUS #### The performing lab is in the report. Monocytes (Bld) [#/Vol] 0.9 10*3/uL High 0.0-0.8 [facility] Comment on above: Performed By: #### A PTT, TSH5, HEMDF, LDH3, DDI2, BMP3M, ESR, FOLT3, URIC3, FEIBC, FERR3, B12, FT4M #### [facility] [address] [place], [place] #### HVAAO, ANA3, HEPAN, B2GPG, B2GPM, B2GPA #### [address] #### LUPUS #### The performing lab is in the report. Monocytes/100 WBC (Bld) 8.2 % Normal 2.0-10.0 [facility] Comment on above: Performed By: #### A PTT, TSH5, HEMDF, LDH3, DDI2, BMP3M, ESR, FOLT3, URIC3, FEIBC, FERR3, B12, FT4M #### [facility] [address] [place], [place] #### HVAAO, ANA3, HEPAN, B2GPG, B2GPM, B2GPA #### [address] #### LUPUS #### The performing lab is in the report. Platelet mean volume (Bld) [Entitic vol] 9.0 fL Normal 7.4-10.4 [facility] Comment on above: Performed By: #### A PTT, TSH5, HEMDF, LDH3, DDI2, BMP3M, ESR, FOLT3, URIC3, FEIBC, FERR3, B12, FT4M #### [facility] [address] [place] [address] #### HVAAO, ANA3, HEPAN, B2GPG, B2GPM, B2GPA #### [address] #### LUPUS #### The performing lab is in the report. Platelets (Bld) [#/Vol] 208 10*3/uL Normal 140-440 [facility] Comment on above: Performed By: #### A PTT, TSH5, HEMDF, LDH3, DDI2, BMP3M, ESR, FOLT3, URIC3, FEIBC, FERR3, B12, FT4M #### [address] [place] [address] #### HVAAO, ANA3, HEPAN, B2GPG, B2GPM, B2GPA #### [address] #### LUPUS #### The performing lab is in the report. RBC (Bld) [#/Vol] 4.37 10*6/uL Normal 3.80-5.20 [facility] Comment on above: Performed By: #### A PTT, TSH5, HEMDF, LDH3, DDI2, BMP3M, ESR, FOLT3, URIC3, FEIBC, FERR3, B12, FT4M #### [address] [place] [address] #### HVAAO, ANA3, HEPAN, B2GPG, B2GPM, B2GPA #### [address] #### LUPUS #### The performing lab is in the report. WBC (Bld) [#/Vol] 11.2 10*3/uL High 3.6-10.7 [facility] Comment on above: Performed By: #### A PTT, TSH5, HEMDF, LDH3, DDI2, BMP3M, ESR, FOLT3, URIC3, FEIBC, FERR3, B12, FT4M #### [place] [address] [place] [address] #### HVAAO, ANA3, HEPAN, B2GPG, B2GPM, B2GPA #### [address] [id number] #### LUPUS #### The performing lab is in the report. APTTon 11-03-2021 aPTT Coag (Bld) [Time] 42.0 s High 20.0-30.5 [facility] Comment on above: Result Comment: NOTE : The therapeutic time for Heparin anticoagulation, based on Xa activity inhibition, is an APTT of 46-80 seconds. Performed By: #### A PTT, TSH5, HEMDF, LDH3, DDI2, BMP3M, ESR, FOLT3, URIC3, FEIBC, FERR3, B12, FT4M #### [address] [place] [address] #### HVAAO, ANA3, HEPAN, B2GPG, B2GPM, B2GPA #### [address] #### LUPUS #### The performing lab is in the report. aPTT Coag (Bld) [Time] 51.5 s High 20.0-30.5 [facility] Comment on above: Result Comment: NOTE : The therapeutic time for Heparin anticoagulation, based on Xa activity inhibition, is an APTT of 46-80 seconds. Performed By: #### A PTT, TSH5, HEMDF, LDH3, DDI2, BMP3M, ESR, FOLT3, URIC3, FEIBC, FERR3, B12, FT4M #### [place] [address] [place] [address] #### HVAAO, ANA3, HEPAN, B2GPG, B2GPM, B2GPA #### [facility] [address] [place] [address] #### LUPUS #### The performing lab is in the report. aPTT Coag (Bld) [Time] 106.9 s High 20.0-30.5 [facility] Comment on above: Result Comment: NOTE : The therapeutic time for Heparin anticoagulation, based on Xa activity inhibition, is an APTT of 46-80 seconds. Performed By: #### A PTT, TSH5, HEMDF, LDH3, DDI2, BMP3M, ESR, FOLT3, URIC3, FEIBC, FERR3, B12, FT4M #### [facility] [address] [place] [address] #### HVAAO, ANA3, HEPAN, B2GPG, B2GPM, B2GPA #### [address] [phone] #### LUPUS #### The performing lab is in the report. CT Head or Brain w/o Contras ton 11-03-2021 CT Head or Brain w/o Contrast Patient Name: CHAY TEAGUE [facility] Tom[facility] ACCESSION EXAM DATE/TIME PROCEDURE ORDERING PROVIDER [id number] 11/03/2021 15:[address] Head or Brain w/o MD GUPTA HASSAN Contrast CPT code 14389 Reason For Exam (CT Head or Brain [...] Transcribed Date and Time: 11/03/2021 3:31 Normal [facility] Comp Panel with Mg Reflexon 11-03-2021 Calcium [Mass/Vol] 8.9 mg/dL Normal 8.4-10.4 [facility] Comment on above: Performed By: #### A PTT, TSH5, HEMDF, LDH3, DDI2, BMP3M, ESR, FOLT3, URIC3, FEIBC, FERR3, B12, FT4M #### [facility] [address] [place] [address] #### HVAAO, ANA3, HEPAN, B2GPG, B2GPM, B2GPA #### [address] [phone] #### LUPUS #### The performing lab is in the report. ALP [Catalytic activity/Vol] 113 U/L Normal 38-126 [facility] Comment on above: Performed By: #### A PTT, TSH5, HEMDF, LDH3, DDI2, BMP3M, ESR, FOLT3, URIC3, FEIBC, FERR3, B12, FT4M #### [facility] [address] [place] [address] #### HVAAO, ANA3, HEPAN, B2GPG, B2GPM, B2GPA #### [address] [phone] #### LUPUS #### The performing lab is in the report. ALT [Catalytic activity/Vol] 15 U/L Normal 0-34 [facility] Comment on above: Result Comment: The ALT test is performed by an updated assay method. Please note that the reference intervals have been changed and are now sex specific. Performed By: #### A PTT, TSH5, HEMDF, LDH3, DDI2, BMP3M, ESR, FOLT3, URIC3, FEIBC, FERR3, B12, FT4M #### [place] [address] [place] [address] #### HVAAO, ANA3, HEPAN, B2GPG, B2GPM, B2GPA #### [address] #### LUPUS #### The performing lab is in the report. Anion gap [Moles/Vol] 9 mmol/L Normal 3-13 [facility] Comment on above: Performed By: #### A PTT, TSH5, HEMDF, LDH3, DDI2, BMP3M, ESR, FOLT3, URIC3, FEIBC, FERR3, B12, FT4M #### [address] [place] #### HVAAO, ANA3, HEPAN, B2GPG, B2GPM, B2GPA #### [address] #### LUPUS #### The performing lab is in the report. AST [Catalytic activity/Vol] 26 U/L Normal 15-46 [facility] Comment on above: Performed By: #### A PTT, TSH5, HEMDF, LDH3, DDI2, BMP3M, ESR, FOLT3, URIC3, FEIBC, FERR3, B12, FT4M #### [address] [place] [address] #### HVAAO, ANA3, HEPAN, B2GPG, B2GPM, B2GPA #### [address] #### LUPUS #### The performing lab is in the report. Bilirubin [Mass/Vol] 0.8 mg/dL Normal 0.2-1.3 [facility] Comment on above: Performed By: #### A PTT, TSH5, HEMDF, LDH3, DDI2, BMP3M, ESR, FOLT3, URIC3, FEIBC, FERR3, B12, FT4M #### [address] [place] [address] #### HVAAO, ANA3, HEPAN, B2GPG, B2GPM, B2GPA #### [address] #### LUPUS #### The performing lab is in the report. CO2 [Moles/Vol] 23 mmol/L Normal 22-30 [facility] Comment on above: Performed By: #### A PTT, TSH5, HEMDF, LDH3, DDI2, BMP3M, ESR, FOLT3, URIC3, FEIBC, FERR3, B12, FT4M #### [facility] [address] [place] #### HVAAO, ANA3, HEPAN, B2GPG, B2GPM, B2GPA #### [address] #### LUPUS #### The performing lab is in the report. Glucose [Mass/Vol] 112 mg/dL High 70-100 [facility] Comment on above: Performed By: #### A PTT, TSH5, HEMDF, LDH3, DDI2, BMP3M, ESR, FOLT3, URIC3, FEIBC, FERR3, B12, FT4M #### [facility] [address] [place], [place] #### HVAAO, ANA3, HEPAN, B2GPG, B2GPM, B2GPA #### [address] #### LUPUS #### The performing lab is in the report. Protein [Mass/Vol] 7.2 g/dL Normal 6.3-8.2 [facility] Comment on above: Performed By: #### A PTT, TSH5, HEMDF, LDH3, DDI2, BMP3M, ESR, FOLT3, URIC3, FEIBC, FERR3, B12, FT4M #### [facility] [address] [place], [place] #### HVAAO, ANA3, HEPAN, B2GPG, B2GPM, B2GPA #### [address] #### LUPUS #### The performing lab is in the report. Urea nitrogen [Mass/Vol] 22 mg/dL High 9-20 [facility] Comment on above: Performed By: #### A PTT, TSH5, HEMDF, LDH3, DDI2, BMP3M, ESR, FOLT3, URIC3, FEIBC, FERR3, B12, FT4M #### [address] [place] [address] #### HVAAO, ANA3, HEPAN, B2GPG, B2GPM, B2GPA #### [address] #### LUPUS #### The performing lab is in the report. Creatinine [Mass/Vol] 1.13 mg/dL Normal 0.52-1.25 [facility] Comment on above: Performed By: #### A PTT, TSH5, HEMDF, LDH3, DDI2, BMP3M, ESR, FOLT3, URIC3, FEIBC, FERR3, B12, FT4M #### [address] [facility] [place] #### HVAAO, ANA3, HEPAN, B2GPG, B2GPM, B2GPA #### [address] #### LUPUS #### The performing lab is in the report. GFR/1.73 sq M.predicted among blacks MDRD (S/P/Bld) [Vol rate/Area] 53.7 mL/min/{1.73_m2} Abnormal >60 [facility] Comment on above: Performed By: #### A PTT, TSH5, HEMDF, LDH3, DDI2, BMP3M, ESR, FOLT3, URIC3, FEIBC, FERR3, B12, FT4M #### [address] [place] [address] #### HVAAO, ANA3, HEPAN, B2GPG, B2GPM, B2GPA #### [address] #### LUPUS #### The performing lab is in the report. GFR/1.73 sq M.predicted among non-blacks MDRD (S/P/Bld) [Vol rate/Area] 46.3 mL/min/{1.73_m2} Abnormal >60 [facility] Comment on above: Result Comment: KDIG O [...] FOLT3, URIC3, FEIBC, FERR3, B12, FT4M #### [facility] [facility] [address] [place] [address] #### HVAAO, ANA3, HEPAN, B2GPG, B2GPM, B2GPA #### [address] [phone] #### LUPUS #### The performing lab is in the report. Albumin [Mass/Vol] 3.8 g/dL Normal 3.5-5.0 [facility] Comment on above: Performed By: #### A PTT, TSH5, HEMDF, LDH3, DDI2, BMP3M, ESR, FOLT3, URIC3, FEIBC, FERR3, B12, FT4M #### [facility] [address] [place] [address] #### HVAAO, ANA3, HEPAN, B2GPG, B2GPM, B2GPA #### [address] #### LUPUS #### The performing lab is in the report. Chloride [Moles/Vol] 104 mmol/L Normal 98-107 [facility] Comment on above: Performed By: #### A PTT, TSH5, HEMDF, LDH3, DDI2, BMP3M, ESR, FOLT3, URIC3, FEIBC, FERR3, B12, FT4M #### [facility] [address] [place] [address] #### HVAAO, ANA3, HEPAN, B2GPG, B2GPM, B2GPA #### [address] #### LUPUS #### The performing lab is in the report. Potassium [Moles/Vol] 3.2 mmol/L Low 3.5-5.1 [facility] Comment on above: Performed By: #### A PTT, TSH5, HEMDF, LDH3, DDI2, BMP3M, ESR, FOLT3, URIC3, FEIBC, FERR3, B12, FT4M #### [facility] [address] [place] [address] #### HVAAO, ANA3, HEPAN, B2GPG, B2GPM, B2GPA #### [address] #### LUPUS #### The performing lab is in the report. Sodium [Moles/Vol] 136 mmol/L Normal 135-145 [facility] Comment on above: Performed By: #### A PTT, TSH5, HEMDF, LDH3, DDI2, BMP3M, ESR, FOLT3, URIC3, FEIBC, FERR3, B12, FT4M #### [facility] [address] [place] [address] #### HVAAO, ANA3, HEPAN, B2GPG, B2GPM, B2GPA #### [address] #### LUPUS #### The performing lab is in the report. Glucose,Bedsideon 11-03-2021 Glucose [Mass/Vol] 117 mg/dL High 70-100 [facility] Comment on above: Result Comment: Test performed by glucose meter. Results may be 10%-15% lower than serum/plasma values. (CLIA ID [id number]) Performed By: #### A PTT, TSH5, HEMDF, LDH3, DDI2, BMP3M, ESR, FOLT3, URIC3, FEIBC, FERR3, B12, FT4M #### [facility] [address] [place] [address] #### HVAAO, ANA3, HEPAN, B2GPG, B2GPM, B2GPA #### [address] #### LUPUS #### The performing lab is in the report. Hemogramon 11-03-2021 Erythrocyte distribution width (RBC) [Ratio] 14.9 % High 11.5-14.5 [facility] Comment on above: Performed By: #### A PTT, TSH5, HEMDF, LDH3, DDI2, BMP3M, ESR, FOLT3, URIC3, FEIBC, FERR3, B12, FT4M #### [place] [address] [place] [address] #### HVAAO, ANA3, HEPAN, B2GPG, B2GPM, B2GPA #### [address] #### LUPUS #### The performing lab is in the report. Hematocrit (Bld) [Volume fraction] 41.6 % Normal 35.0-47.0 [facility] Comment on above: Performed By: #### A PTT, TSH5, HEMDF, LDH3, DDI2, BMP3M, ESR, FOLT3, URIC3, FEIBC, FERR3, B12, FT4M #### [facility] [address] [place] [address] #### HVAAO, ANA3, HEPAN, B2GPG, B2GPM, B2GPA #### [address] #### LUPUS #### The performing lab is in the report. Hemoglobin (Bld) [Mass/Vol] 14.1 g/dL Normal 11.7-16.0 [facility] Comment on above: Performed By: #### A PTT, TSH5, HEMDF, LDH3, DDI2, BMP3M, ESR, FOLT3, URIC3, FEIBC, FERR3, B12, FT4M #### [facility] [address] [place] [address] #### HVAAO, ANA3, HEPAN, B2GPG, B2GPM, B2GPA #### [address] #### LUPUS #### The performing lab is in the report. MCH (RBC) [Entitic mass] 30.7 pg Normal 26.0-34.0 [facility] Comment on above: Performed By: #### A PTT, TSH5, HEMDF, LDH3, DDI2, BMP3M, ESR, FOLT3, URIC3, FEIBC, FERR3, B12, FT4M #### [facility] [address] [place] [address] #### HVAAO, ANA3, HEPAN, B2GPG, B2GPM, B2GPA #### [address] #### LUPUS #### The performing lab is in the report. MCHC 34.0 % Normal 32.0-36.0 [facility] Comment on above: Performed By: #### A PTT, TSH5, HEMDF, LDH3, DDI2, BMP3M, ESR, FOLT3, URIC3, FEIBC, FERR3, B12, FT4M #### [facility] [address] [place] [address] #### HVAAO, ANA3, HEPAN, B2GPG, B2GPM, B2GPA #### [address] #### LUPUS #### The performing lab is in the report. MCV (RBC) [Entitic vol] 90.3 fL Normal 79.0-98.0 [facility] Comment on above: Performed By: #### A PTT, TSH5, HEMDF, LDH3, DDI2, BMP3M, ESR, FOLT3, URIC3, FEIBC, FERR3, B12, FT4M #### [address] [place] [address] #### HVAAO, ANA3, HEPAN, B2GPG, B2GPM, B2GPA #### [address] #### LUPUS #### The performing lab is in the report. Platelet mean volume (Bld) [Entitic vol] 8.8 fL Normal 7.4-10.4 [facility] Comment on above: Performed By: #### A PTT, TSH5, HEMDF, LDH3, DDI2, BMP3M, ESR, FOLT3, URIC3, FEIBC, FERR3, B12, FT4M #### [address] [place] [address] #### HVAAO, ANA3, HEPAN, B2GPG, B2GPM, B2GPA #### [address] #### LUPUS #### The performing lab is in the report. Platelets (Bld) [#/Vol] 185 10*3/uL Normal 140-440 [facility] Comment on above: Performed By: #### A PTT, TSH5, HEMDF, LDH3, DDI2, BMP3M, ESR, FOLT3, URIC3, FEIBC, FERR3, B12, FT4M #### [address] [place] [address] #### HVAAO, ANA3, HEPAN, B2GPG, B2GPM, B2GPA #### [address] #### LUPUS #### The performing lab is in the report. RBC (Bld) [#/Vol] 4.61 10*6/uL Normal 3.80-5.20 [facility] Comment on above: Performed By: #### A PTT, TSH5, HEMDF, LDH3, DDI2, BMP3M, ESR, FOLT3, URIC3, FEIBC, FERR3, B12, FT4M #### [address] [place] [address] #### HVAAO, ANA3, HEPAN, B2GPG, B2GPM, B2GPA #### [address] #### LUPUS #### The performing lab is in the report. WBC (Bld) [#/Vol] 9.3 10*3/uL Normal 3.6-10.7 [facility] Comment on above: Performed By: #### A PTT, TSH5, HEMDF, LDH3, DDI2, BMP3M, ESR, FOLT3, URIC3, FEIBC, FERR3, B12, FT4M #### [address] [place] [address] #### HVAAO, ANA3, HEPAN, B2GPG, B2GPM, B2GPA #### [address] #### LUPUS #### The performing lab is in the report. Hemogram w/ Autodiffon 11-03 Abs Baso Cnt 0.0 10*3/uL Normal 0.0-0.2 [facility] Comment on above: Performed By: #### A PTT, TSH5, HEMDF, LDH3, DDI2, BMP3M, ESR, FOLT3, URIC3, FEIBC, FERR3, B12, FT4M #### [address] [place] [id number] #### HVAAO, ANA3, HEPAN, B2GPG, B2GPM, B2GPA #### [address] #### LUPUS #### The performing lab is in the report. Abs Neutrophile Cnt 6.5 10*3/uL Normal 1.8-7.0 [facility] Comment on above: Performed By: #### A PTT, TSH5, HEMDF, LDH3, DDI2, BMP3M, ESR, FOLT3, URIC3, FEIBC, FERR3, B12, FT4M #### [facility] [address] [place] [address] #### HVAAO, ANA3, HEPAN, B2GPG, B2GPM, B2GPA #### [address] #### LUPUS #### The performing lab is in the report. Basophils/100 WBC (Bld) 0.4 % Normal 0.0-2.0 [facility] Comment on above: Performed By: #### A PTT, TSH5, HEMDF, LDH3, DDI2, BMP3M, ESR, FOLT3, URIC3, FEIBC, FERR3, B12, FT4M #### [facility] [address] [place] [address] #### HVAAO, ANA3, HEPAN, B2GPG, B2GPM, B2GPA #### [address] #### LUPUS #### The performing lab is in the report. Eosinophils (Bld) [#/Vol] 0.4 10*3/uL Normal 0.0-0.5 [facility] Comment on above: Performed By: #### A PTT, TSH5, HEMDF, LDH3, DDI2, BMP3M, ESR, FOLT3, URIC3, FEIBC, FERR3, B12, FT4M #### [facility] [address] [place] [address] #### HVAAO, ANA3, HEPAN, B2GPG, B2GPM, B2GPA #### [address] #### LUPUS #### The performing lab is in the report. Eosinophils/100 WBC (Bld) 4.0 % Normal 1.0-6.0 [facility] Comment on above: Performed By: #### A PTT, TSH5, HEMDF, LDH3, DDI2, BMP3M, ESR, FOLT3, URIC3, FEIBC, FERR3, B12, FT4M #### [address] [place] [address] #### HVAAO, ANA3, HEPAN, B2GPG, B2GPM, B2GPA #### [address] #### LUPUS #### The performing lab is in the report. Erythrocyte distribution width (RBC) [Ratio] 14.9 % High 11.5-14.5 [facility] Comment on above: Performed By: #### A PTT, TSH5, HEMDF, LDH3, DDI2, BMP3M, ESR, FOLT3, URIC3, FEIBC, FERR3, B12, FT4M #### [address] [place] #### HVAAO, ANA3, HEPAN, B2GPG, B2GPM, B2GPA #### [address] #### LUPUS #### The performing lab is in the report. Granulocytes/100 WBC (Bld) 65.5 % Normal 40.0-80.0 [facility] Comment on above: Performed By: #### A PTT, TSH5, HEMDF, LDH3, DDI2, BMP3M, ESR, FOLT3, URIC3, FEIBC, FERR3, B12, FT4M #### [address] [place] #### HVAAO, ANA3, HEPAN, B2GPG, B2GPM, B2GPA #### [address] #### LUPUS #### The performing lab is in the report. Hematocrit (Bld) [Volume fraction] 43.4 % Normal 35.0-47.0 [facility] Comment on above: Performed By: #### A PTT, TSH5, HEMDF, LDH3, DDI2, BMP3M, ESR, FOLT3, URIC3, FEIBC, FERR3, B12, FT4M #### [address] [place] #### HVAAO, ANA3, HEPAN, B2GPG, B2GPM, B2GPA #### [address] #### LUPUS #### The performing lab is in the report. Hemoglobin (Bld) [Mass/Vol] 14.6 g/dL Normal 11.7-16.0 [facility] Comment on above: Performed By: #### A PTT, TSH5, HEMDF, LDH3, DDI2, BMP3M, ESR, FOLT3, URIC3, FEIBC, FERR3, B12, FT4M #### [facility] [address] [place] [address] #### HVAAO, ANA3, HEPAN, B2GPG, B2GPM, B2GPA #### [address] #### LUPUS #### The performing lab is in the report. Lymphocytes (Bld) [#/Vol] 2.2 10*3/uL Normal 1.0-4.3 [facility] Comment on above: Performed By: #### A PTT, TSH5, HEMDF, LDH3, DDI2, BMP3M, ESR, FOLT3, URIC3, FEIBC, FERR3, B12, FT4M #### [address] [place] [address] #### HVAAO, ANA3, HEPAN, B2GPG, B2GPM, B2GPA #### [address] #### LUPUS #### The performing lab is in the report. Lymphocytes/100 WBC (Bld) 22.4 % Normal 20.0-40.0 [facility] Comment on above: Performed By: #### A PTT, TSH5, HEMDF, LDH3, DDI2, BMP3M, ESR, FOLT3, URIC3, FEIBC, FERR3, B12, FT4M #### [address] [place] [address] #### HVAAO, ANA3, HEPAN, B2GPG, B2GPM, B2GPA #### [address] #### LUPUS #### The performing lab is in the report. MCH (RBC) [Entitic mass] 30.8 pg Normal 26.0-34.0 [facility] Comment on above: Performed By: #### A PTT, TSH5, HEMDF, LDH3, DDI2, BMP3M, ESR, FOLT3, URIC3, FEIBC, FERR3, B12, FT4M #### [facility] [address] [place] [address] #### HVAAO, ANA3, HEPAN, B2GPG, B2GPM, B2GPA #### [address] #### LUPUS #### The performing lab is in the report. MCHC 33.6 % Normal 32.0-36.0 [facility] Comment on above: Performed By: #### A PTT, TSH5, HEMDF, LDH3, DDI2, BMP3M, ESR, FOLT3, URIC3, FEIBC, FERR3, B12, FT4M #### [facility] [address] [place], [place] #### HVAAO, ANA3, HEPAN, B2GPG, B2GPM, B2GPA #### [address] #### LUPUS #### The performing lab is in the report. MCV (RBC) [Entitic vol] 91.5 fL Normal 79.0-98.0 [facility] Comment on above: Performed By: #### A PTT, TSH5, HEMDF, LDH3, DDI2, BMP3M, ESR, FOLT3, URIC3, FEIBC, FERR3, B12, FT4M #### [facility] [address] [place] [place] [address] #### HVAAO, ANA3, HEPAN, B2GPG, B2GPM, B2GPA #### [address] #### LUPUS #### The performing lab is in the report. Monocytes (Bld) [#/Vol] 0.8 10*3/uL Normal 0.0-0.8 [facility] Comment on above: Performed By: #### A PTT, TSH5, HEMDF, LDH3, DDI2, BMP3M, ESR, FOLT3, URIC3, FEIBC, FERR3, B12, FT4M #### [facility] [address] [place] [address] #### HVAAO, ANA3, HEPAN, B2GPG, B2GPM, B2GPA #### [address] #### LUPUS #### The performing lab is in the report. Monocytes/100 WBC (Bld) 7.7 % Normal 2.0-10.0 [facility] Comment on above: Performed By: #### A PTT, TSH5, HEMDF, LDH3, DDI2, BMP3M, ESR, FOLT3, URIC3, FEIBC, FERR3, B12, FT4M #### [facility] [address] [place] [address] #### HVAAO, ANA3, HEPAN, B2GPG, B2GPM, B2GPA #### [address] #### LUPUS #### The performing lab is in the report. Platelet mean volume (Bld) [Entitic vol] 9.2 fL Normal 7.4-10.4 [facility] Comment on above: Performed By: #### A PTT, TSH5, HEMDF, LDH3, DDI2, BMP3M, ESR, FOLT3, URIC3, FEIBC, FERR3, B12, FT4M #### [facility] [address] [place] [address] #### HVAAO, ANA3, HEPAN, B2GPG, B2GPM, B2GPA #### [address] #### LUPUS #### The performing lab is in the report. Platelets (Bld) [#/Vol] 208 10*3/uL Normal 140-440 [facility] Comment on above: Performed By: #### A PTT, TSH5, HEMDF, LDH3, DDI2, BMP3M, ESR, FOLT3, URIC3, FEIBC, FERR3, B12, FT4M #### [place] [address] [place] [address] #### HVAAO, ANA3, HEPAN, B2GPG, B2GPM, B2GPA #### [address] #### LUPUS #### The performing lab is in the report. RBC (Bld) [#/Vol] 4.74 10*6/uL Normal 3.80-5.20 [facility] Comment on above: Performed By: #### A PTT, TSH5, HEMDF, LDH3, DDI2, BMP3M, ESR, FOLT3, URIC3, FEIBC, FERR3, B12, FT4M #### [address] [place] [address] #### HVAAO, ANA3, HEPAN, B2GPG, B2GPM, B2GPA #### [address] #### LUPUS #### The performing lab is in the report. WBC (Bld) [#/Vol] 10.0 10*3/uL Normal 3.6-10.7 [facility] Comment on above: Performed By: #### A PTT, TSH5, HEMDF, LDH3, DDI2, BMP3M, ESR, FOLT3, URIC3, FEIBC, FERR3, B12, FT4M #### [place] [address] [place] [address] #### HVAAO, ANA3, HEPAN, B2GPG, B2GPM, B2GPA #### [address] #### LUPUS #### The performing lab is in the report. Magnesiumon 11-03-2021 Magnesium [Mass/Vol] 2.1 mg/dL Normal 1.6-2.3 [facility] Comment on above: Performed By: #### A PTT, TSH5, HEMDF, LDH3, DDI2, BMP3M, ESR, FOLT3, URIC3, FEIBC, FERR3, B12, FT4M #### [place] [address] [place] [address] #### HVAAO, ANA3, HEPAN, B2GPG, B2GPM, B2GPA #### [address] #### LUPUS #### The performing lab is in the report. APTTon 11-02-2021 aPTT Coag (Bld) [Time] 22.5 s Normal 20.0-30.5 [facility] Comment on above: Result Comment: NOTE : The therapeutic time for Heparin anticoagulation, based on Xa activity inhibition, is an APTT of 46-80 seconds. Performed By: #### A PTT, TSH5, HEMDF, LDH3, DDI2, BMP3M, ESR, FOLT3, URIC3, FEIBC, FERR3, B12, FT4M #### [address] [place] [address] #### HVAAO, ANA3, HEPAN, B2GPG, B2GPM, B2GPA #### [address] #### LUPUS #### The performing lab is in the report. Add on test from HISon 11-02 Add on test from HIS Accepted Normal [facility] Comment on above: Result Comment: Spec imen available & acceptable for analysis. Performed By: #### A PTT, TSH5, HEMDF, LDH3, DDI2, BMP3M, ESR, FOLT3, URIC3, FEIBC, FERR3, B12, FT4M #### [address] [place] [address] #### HVAAO, ANA3, HEPAN, B2GPG, B2GPM, B2GPA #### [address] #### LUPUS #### The performing lab is in the report. Basic Metabolic Panelon 10-23 Calcium [Mass/Vol] 9.4 mg/dL Normal 8.4-10.4 [facility] Comment on above: Performed By: #### A PTT, TSH5, HEMDF, LDH3, DDI2, BMP3M, ESR, FOLT3, URIC3, FEIBC, FERR3, B12, FT4M #### [place] [address] [place] [address] #### HVAAO, ANA3, HEPAN, B2GPG, B2GPM, B2GPA #### [address] #### LUPUS #### The performing lab is in the report. Anion gap [Moles/Vol] 7 mmol/L Normal 3-13 [facility] Comment on above: Performed By: #### A PTT, TSH5, HEMDF, LDH3, DDI2, BMP3M, ESR, FOLT3, URIC3, FEIBC, FERR3, B12, FT4M #### [address] [place] [address] #### HVAAO, ANA3, HEPAN, B2GPG, B2GPM, B2GPA #### [address] #### LUPUS #### The performing lab is in the report. CO2 [Moles/Vol] 30 mmol/L Normal 22-30 [facility] Comment on above: Performed By: #### A PTT, TSH5, HEMDF, LDH3, DDI2, BMP3M, ESR, FOLT3, URIC3, FEIBC, FERR3, B12, FT4M #### [address] [place] [address] #### HVAAO, ANA3, HEPAN, B2GPG, B2GPM, B2GPA #### [address] #### LUPUS #### The performing lab is in the report. Creatinine [Mass/Vol] 0.99 mg/dL Normal 0.52-1.25 [facility] Comment on above: Performed By: #### A PTT, TSH5, HEMDF, LDH3, DDI2, BMP3M, ESR, FOLT3, URIC3, FEIBC, FERR3, B12, FT4M #### [facility] [address] [place] [address] #### HVAAO, ANA3, HEPAN, B2GPG, B2GPM, B2GPA #### [address] [id number] #### LUPUS #### The performing lab is in the report. GFR/1.73 sq M.predicted among blacks MDRD (S/P/Bld) [Vol rate/Area] 63.0 mL/min/{1.73_m2} Normal >60 [facility] Comment on above: Performed By: #### A PTT, TSH5, HEMDF, LDH3, DDI2, BMP3M, ESR, FOLT3, URIC3, FEIBC, FERR3, B12, FT4M #### [facility] [address] [place] [address] #### HVAAO, ANA3, HEPAN, B2GPG, B2GPM, B2GPA #### [address] [address] #### LUPUS #### The performing lab is in the report. GFR/1.73 sq M.predicted among non-blacks MDRD (S/P/Bld) [Vol rate/Area] 54.4 mL/min/{1.73_m2} Abnormal >60 [facility] Comment on above: Result Comment: KDIG O [...] FOLT3, URIC3, FEIBC, FERR3, B12, FT4M #### [facility] [address] [place] [address] #### HVAAO, ANA3, HEPAN, B2GPG, B2GPM, B2GPA #### [address] #### LUPUS #### The performing lab is in the report. Glucose [Mass/Vol] 116 mg/dL High 70-100 [facility] Comment on above: Performed By: #### A PTT, TSH5, HEMDF, LDH3, DDI2, BMP3M, ESR, FOLT3, URIC3, FEIBC, FERR3, B12, FT4M #### [facility] [address] [place] [address] #### HVAAO, ANA3, HEPAN, B2GPG, B2GPM, B2GPA #### [address] #### LUPUS #### The performing lab is in the report. Urea nitrogen [Mass/Vol] 22 mg/dL High 9-20 [facility] Comment on above: Performed By: #### A PTT, TSH5, HEMDF, LDH3, DDI2, BMP3M, ESR, FOLT3, URIC3, FEIBC, FERR3, B12, FT4M #### [place] [address] [place] [address] #### HVAAO, ANA3, HEPAN, B2GPG, B2GPM, B2GPA #### [address] #### LUPUS #### The performing lab is in the report. Chloride [Moles/Vol] 101 mmol/L Normal 98-107 [facility] Comment on above: Performed By: #### A PTT, TSH5, HEMDF, LDH3, DDI2, BMP3M, ESR, FOLT3, URIC3, FEIBC, FERR3, B12, FT4M #### [place] [address] [place] [address] #### HVAAO, ANA3, HEPAN, B2GPG, B2GPM, B2GPA #### [address] #### LUPUS #### The performing lab is in the report. Potassium [Moles/Vol] 3.2 mmol/L Low 3.5-5.1 [facility] Comment on above: Performed By: #### A PTT, TSH5, HEMDF, LDH3, DDI2, BMP3M, ESR, FOLT3, URIC3, FEIBC, FERR3, B12, FT4M #### [place] [address] [place] [address] #### HVAAO, ANA3, HEPAN, B2GPG, B2GPM, B2GPA #### [address] #### LUPUS #### The performing lab is in the report. Sodium [Moles/Vol] 137 mmol/L Normal 135-145 [facility] Comment on above: Performed By: #### A PTT, TSH5, HEMDF, LDH3, DDI2, BMP3M, ESR, FOLT3, URIC3, FEIBC, FERR3, B12, FT4M #### [address] [place] [address] #### HVAAO, ANA3, HEPAN, B2GPG, B2GPM, B2GPA #### [address] [id number] #### LUPUS #### The performing lab is in the report. CTA Chest w/ + w/o Contrasto n 11-02-2021 CTA Chest w/ + w/o Contrast Patient Name: CHAY TEAGUE Computed Tomography ACCESSION EXAM DATE/TIME PROCEDURE ORDERING PROVIDER [id number] 11/02/2021 17:43 EST CTA Chest w/ + w/o MD BERNARDINO, CAIN Contrast CPT code 40456 Q9967 Reason For Exam (CTA Chest w/ + w/o Contrast) LLE DVT, chest pain r/o PE Report Reasons for examination: Chest pain and DVT. 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 Plan is to admit to medicine with [...] are mis-transcribed.) LUIS STERN MD Acute Care [facility] Luis Stern MD 11/03/21 0736 [facility] Patient: Chay Teague : 1945 Date of Evaluation: 11/02/2021 ED DANETTE Provider: Sharri Morel PA-C EDcare was supervised by Dr. Stern who independently examined and evaluated the patient. Please see their attestation note for further details. I was wearing an N95 mask, surgical mask, and goggles. Chief Complaint Chief Complaint Patient presents with ? Leg Swelling CURYUNG Chay Teague is a 76 y.o. female who [...] otherwise acutely negative except as in the CURYUNG. Past History Past Medical History: Diagnosis Date [...] Former Smoker Types: Cigarettes Quit date: 1984 Years since quittin.1 ? Smokeless tobacco: Never [...] and Family: Not on file ? Attends [employer]: Not on file ? Active Member [...] (2.5 MG/3M (more content not included)... Normal [facility] Hemogram w/ Autodiffon 11-02 Abs Baso Cnt 0.1 10*3/uL Normal 0.0-0.2 [facility] Comment on above: Performed By: #### A PTT, TSH5, HEMDF, LDH3, DDI2, BMP3M, ESR, FOLT3, URIC3, FEIBC, FERR3, B12, FT4M #### [facility] [address] [place] [address] #### HVAAO, ANA3, HEPAN, B2GPG, B2GPM, B2GPA #### [facility] [address] [place] [address] #### LUPUS #### The performing lab is in the report. Abs Neutrophile Cnt 6.8 10*3/uL Normal 1.8-7.0 [facility] Comment on above: Performed By: #### A PTT, TSH5, HEMDF, LDH3, DDI2, BMP3M, ESR, FOLT3, URIC3, FEIBC, FERR3, B12, FT4M #### [facility] [address] [place] [address] #### HVAAO, ANA3, HEPAN, B2GPG, B2GPM, B2GPA #### [address] #### LUPUS #### The performing lab is in the report. Basophils/100 WBC (Bld) 0.8 % Normal 0.0-2.0 [facility] Comment on above: Performed By: #### A PTT, TSH5, HEMDF, LDH3, DDI2, BMP3M, ESR, FOLT3, URIC3, FEIBC, FERR3, B12, FT4M #### [address] [place] [address] #### HVAAO, ANA3, HEPAN, B2GPG, B2GPM, B2GPA #### [address] #### LUPUS #### The performing lab is in the report. Eosinophils (Bld) [#/Vol] 0.3 10*3/uL Normal 0.0-0.5 [facility] Comment on above: Performed By: #### A PTT, TSH5, HEMDF, LDH3, DDI2, BMP3M, ESR, FOLT3, URIC3, FEIBC, FERR3, B12, FT4M #### [address] [place] [address] #### HVAAO, ANA3, HEPAN, B2GPG, B2GPM, B2GPA #### [address] #### LUPUS #### The performing lab is in the report. Eosinophils/100 WBC (Bld) 2.9 % Normal 1.0-6.0 [facility] Comment on above: Performed By: #### A PTT, TSH5, HEMDF, LDH3, DDI2, BMP3M, ESR, FOLT3, URIC3, FEIBC, FERR3, B12, FT4M #### [address] [place] [address] #### HVAAO, ANA3, HEPAN, B2GPG, B2GPM, B2GPA #### [address] #### LUPUS #### The performing lab is in the report. Erythrocyte distribution width (RBC) [Ratio] 15.2 % High 11.5-14.5 [facility] Comment on above: Performed By: #### A PTT, TSH5, HEMDF, LDH3, DDI2, BMP3M, ESR, FOLT3, URIC3, FEIBC, FERR3, B12, FT4M #### [address] [place] #### HVAAO, ANA3, HEPAN, B2GPG, B2GPM, B2GPA #### [address] #### LUPUS #### The performing lab is in the report. Granulocytes/100 WBC (Bld) 62.6 % Normal 40.0-80.0 [facility] Comment on above: Performed By: #### A PTT, TSH5, HEMDF, LDH3, DDI2, BMP3M, ESR, FOLT3, URIC3, FEIBC, FERR3, B12, FT4M #### [address] [place] #### HVAAO, ANA3, HEPAN, B2GPG, B2GPM, B2GPA #### [address] #### LUPUS #### The performing lab is in the report. Hematocrit (Bld) [Volume fraction] 41.3 % Normal 35.0-47.0 [facility] Comment on above: Performed By: #### A PTT, TSH5, HEMDF, LDH3, DDI2, BMP3M, ESR, FOLT3, URIC3, FEIBC, FERR3, B12, FT4M #### [address] [place] #### HVAAO, ANA3, HEPAN, B2GPG, B2GPM, B2GPA #### [address] #### LUPUS #### The performing lab is in the report. Hemoglobin (Bld) [Mass/Vol] 13.9 g/dL Normal 11.7-16.0 [facility] Comment on above: Performed By: #### A PTT, TSH5, HEMDF, LDH3, DDI2, BMP3M, ESR, FOLT3, URIC3, FEIBC, FERR3, B12, FT4M #### [facility] [address] [place] [address] #### HVAAO, ANA3, HEPAN, B2GPG, B2GPM, B2GPA #### [address] #### LUPUS #### The performing lab is in the report. Lymphocytes (Bld) [#/Vol] 2.6 10*3/uL Normal 1.0-4.3 [facility] Comment on above: Performed By: #### A PTT, TSH5, HEMDF, LDH3, DDI2, BMP3M, ESR, FOLT3, URIC3, FEIBC, FERR3, B12, FT4M #### [facility] [address] [place] [address] #### HVAAO, ANA3, HEPAN, B2GPG, B2GPM, B2GPA #### [address] #### LUPUS #### The performing lab is in the report. Lymphocytes/100 WBC (Bld) 23.6 % Normal 20.0-40.0 [facility] Comment on above: Performed By: #### A PTT, TSH5, HEMDF, LDH3, DDI2, BMP3M, ESR, FOLT3, URIC3, FEIBC, FERR3, B12, FT4M #### [facility] [address] [place] [address] #### HVAAO, ANA3, HEPAN, B2GPG, B2GPM, B2GPA #### [address], [place] #### LUPUS #### The performing lab is in the report. MCH (RBC) [Entitic mass] 30.7 pg Normal 26.0-34.0 [facility] Comment on above: Performed By: #### A PTT, TSH5, HEMDF, LDH3, DDI2, BMP3M, ESR, FOLT3, URIC3, FEIBC, FERR3, B12, FT4M #### [facility] [address] [place] [address] #### HVAAO, ANA3, HEPAN, B2GPG, B2GPM, B2GPA #### [address] #### LUPUS #### The performing lab is in the report. MCHC 33.6 % Normal 32.0-36.0 [facility] Comment on above: Performed By: #### A PTT, TSH5, HEMDF, LDH3, DDI2, BMP3M, ESR, FOLT3, URIC3, FEIBC, FERR3, B12, FT4M #### [facility] [address] [place] [address] #### HVAAO, ANA3, HEPAN, B2GPG, B2GPM, B2GPA #### [address] #### LUPUS #### The performing lab is in the report. MCV (RBC) [Entitic vol] 91.2 fL Normal 79.0-98.0 [facility] Comment on above: Performed By: #### A PTT, TSH5, HEMDF, LDH3, DDI2, BMP3M, ESR, FOLT3, URIC3, FEIBC, FERR3, B12, FT4M #### [facility] [address] [place] [address] #### HVAAO, ANA3, HEPAN, B2GPG, B2GPM, B2GPA #### [address] #### LUPUS #### The performing lab is in the report. Monocytes (Bld) [#/Vol] 1.1 10*3/uL High 0.0-0.8 [facility] Comment on above: Performed By: #### A PTT, TSH5, HEMDF, LDH3, DDI2, BMP3M, ESR, FOLT3, URIC3, FEIBC, FERR3, B12, FT4M #### [facility] [address] [place] [address] #### HVAAO, ANA3, HEPAN, B2GPG, B2GPM, B2GPA #### [address] #### LUPUS #### The performing lab is in the report. Monocytes/100 WBC (Bld) 10.1 % High 2.0-10.0 [facility] Comment on above: Performed By: #### A PTT, TSH5, HEMDF, LDH3, DDI2, BMP3M, ESR, FOLT3, URIC3, FEIBC, FERR3, B12, FT4M #### [facility] [address] [place] [address] #### HVAAO, ANA3, HEPAN, B2GPG, B2GPM, B2GPA #### [address] #### LUPUS #### The performing lab is in the report. Platelet mean volume (Bld) [Entitic vol] 8.9 fL Normal 7.4-10.4 [facility] Comment on above: Performed By: #### A PTT, TSH5, HEMDF, LDH3, DDI2, BMP3M, ESR, FOLT3, URIC3, FEIBC, FERR3, B12, FT4M #### [facility] [address] [place] [address] #### HVAAO, ANA3, HEPAN, B2GPG, B2GPM, B2GPA #### [address] #### LUPUS #### The performing lab is in the report. Platelets (Bld) [#/Vol] 208 10*3/uL Normal 140-440 [facility] Comment on above: Performed By: #### A PTT, TSH5, HEMDF, LDH3, DDI2, BMP3M, ESR, FOLT3, URIC3, FEIBC, FERR3, B12, FT4M #### [address] [place] [address] #### HVAAO, ANA3, HEPAN, B2GPG, B2GPM, B2GPA #### [address] #### LUPUS #### The performing lab is in the report. RBC (Bld) [#/Vol] 4.53 10*6/uL Normal 3.80-5.20 [facility] Comment on above: Performed By: #### A PTT, TSH5, HEMDF, LDH3, DDI2, BMP3M, ESR, FOLT3, URIC3, FEIBC, FERR3, B12, FT4M #### [address] [place] [address] #### HVAAO, ANA3, HEPAN, B2GPG, B2GPM, B2GPA #### [address] #### LUPUS #### The performing lab is in the report. WBC (Bld) [#/Vol] 10.9 10*3/uL High 3.6-10.7 [facility] Comment on above: Performed By: #### A PTT, TSH5, HEMDF, LDH3, DDI2, BMP3M, ESR, FOLT3, URIC3, FEIBC, FERR3, B12, FT4M #### [address] [address] #### HVAAO, ANA3, HEPAN, B2GPG, B2GPM, B2GPA #### [address] #### LUPUS #### The performing lab is in the report. Prothrombin Timeon 2 INR 1.0 Normal 0.9-1.1 [facility] Comment on above: Result Comment: Kwaku mmended [...] FOLT3, URIC3, FEIBC, FERR3, B12, FT4M #### [address] [place] [address] #### HVAAO, ANA3, HEPAN, B2GPG, B2GPM, B2GPA #### [address] [phone] #### LUPUS #### The performing lab is in the report. PT Coag (PPP) [Time] 10.6 s Normal 9.0-12.0 [facility] Comment on above: Result Comment: . Performed By: #### A PTT, TSH5, HEMDF, LDH3, DDI2, BMP3M, ESR, FOLT3, URIC3, FEIBC, FERR3, B12, FT4M #### [address] [place] [address] #### HVAAO, ANA3, HEPAN, B2GPG, B2GPM, B2GPA #### [address] [id number] #### LUPUS #### The performing lab is in the report. Troponin Ion 11-02-2021 Troponin I.cardiac [Mass/Vol] ng/mL Normal 0.000-0.034 [facility] Comment on above: Result Comment: . Performed By: #### A PTT, TSH5, HEMDF, LDH3, DDI2, BMP3M, ESR, FOLT3, URIC3, FEIBC, FERR3, B12, FT4M #### [address] [place] [address] #### HVAAO, ANA3, HEPAN, B2GPG, B2GPM, B2GPA #### [facility] [place] [address] [phone] #### LUPUS #### The performing lab is in the report. VL Venous Duplex US Lower Ex t Lefton 11-02-2021 VL Venous Duplex US Lower Ext Left Patient Name: CHAY TEAGUE Ultrasound ACCESSION EXAM DATE/TIME PROCEDURE ORDERING PROVIDER [id number] 11/02/2021 13:09 EST VL Venous Duplex US [id number] -SHARRI FATIMA Lower Ext Left CPT code 64235 Reason For Exam (VL Venous Duplex US Lower Ext Left) left lower leg swelling - new onset today Report [facility] Lower Extremity Venous Duplex Report Patient Chay Teague : 1945 Study 11/02/2021 Name: Krystal (76yrs) Date: Age: 76 Account: [id number] Gender: F Loc: 444 BP: Ordering Physician: Sharri Fatima Manager Search: Mikal Serna RVT Interpreting Physician: Christofer Carrillo MD Location: [facility] Indications: Edema left entire leg. New onset of edema in the left leg. CRITICAL RESULTS: A critical finding, was reported to Dr. Olivier , by Mikal Bernal on 11/02/2021 , at [...] supine position. Images were obtained using a [employer] vascular ultrasound machine. The study was technically [...] Christofer Carrillo (more content not included)... Normal [facility] KNEE CMPLT, 4 OR MORE VIEWSo n 08-29-2021 KNEE CMPLT, 4 OR MORE VIEWS Patient Name: CHAY TEAGUE STUDY: KNEE; COMPLT, 4 OR MORE VIEWS INDICATION: knee pain M25.562: Knee pain, left. COMPARISON: None ACCESSION NUMBER(S): [id number] ORDERING CLINICIAN: NIMCO TURNER FINDINGS: Four views left knee demonstrate minimal degenerative change. No fracture seen. No osseous abnormality. IMPRESSION: No acute findings left knee. Electronically signed by: JACKLYN MURDOCK MD Normal [facility] Office Visit (Urgent Care)on 08-29-2021 Follow-up visit Diagnoses/Problems Assessed Knee pain, left (719.46) (M25.562) Orders Knee pain, left Xray Knee Complete 4 or more View; Status:Resulted - Requires Verification; Done: [id number] 07:42PM Performed:[facility]; Due:27Nov2021;Ordered; Stat; For:Knee pain, left; [...] appropriate use. Thx. Vitals Vital Signs Recorded: [id number] 07:41PM Lfenkwdzmqg56.3 F Heart Xofp331 Fsmuogkvmme68 Yrvdemyo173 Zesyaflnf05 Height5 ft 1 in Yuuidf978 lb BMI Ynivhhuffs83.9 kg/m2 BSA Calculated1.85 Tobacco Useb) No Fall Screeningb) One or more falls in the last year O2 Aiowuwgtqy82 Physical Exam Constitutional: Well developed, well nourished. [...] Results/Data Xray Knee Complete 4 or more [id number] 07:42PMiNmco Turner Test NameResultFlagReference Xray Knee Complete 4 or more View(Report) FINAL REPORT Interpreted by: JACKLYN MURDOCK CHRISTOPHER, MD 08/29/21 19:50 Patient Name: CHAY TEAGUE STUDY: KNEE; COMPLT, 4 OR MORE VIEWS INDICATION: knee pain M25.562: Knee pain, left. COMPARISON: None ACCESSION NUMBER(S): [id number] ORDERING CLINICIAN: NIMCO TURNER FINDINGS: Four views left knee demonstrate minimal degenerative change. No fracture seen. No osseous abnormality. IMPRESSION: No acute findings left knee. Electronically signed by: JACKLYN MURDOCK 08/29/21 19:50 Signatures Electronically signed by : Nimco Turner, CHAPITO-DEPUTY CLERK OF COURT; Aug 29 2021 8:16PM EST (Author) Normal [facility] 08-29-2021 XR Knee 4 Views Normal [facility] Work Phone: Tobacco Screening.on 021 Fall risk assessment b) One or more fall s in the last year [facility] Work Phone: Tobacco use status CPHS b) No [facility] Work Phone: CBC Auto DifferentialOrdered By: Cynthia Uribe on 05-10-2021 Absolute Baso # 0.1 10*3/uL 0.0 - 0.2 10*3/uL [facility] Work Phone: [phone] Absolute Neut # 4.9 10*3/uL 1.8 - 7.0 10*3/uL [facility] Work Phone: Basophils/100 WBC (Bld) 0.8 % 0.0 - 2.0 % [facility] Work Phone: Eosinophils (Bld) [#/Vol] 0.3 10*3/uL 0.0 - 0.5 10*3/uL [facility] Work Phone: Eosinophils/100 WBC (Bld) 3.2 % 1.0 - 6.0 % [facility] Work Phone: Granulocytes/100 WBC (Bld) 59.4 % 40.0 - 80.0 % [facility] Work Phone: Hematocrit (Bld) [Volume fraction] 44.8 % 35.0 - 47.0 % [facility] Work Phone: [phone] Hemoglobin.gastrointes tinal spec 1 Ql (Stl) 15.1 g/dL 11.7 - 16.0 g/dL [facility] Work Phone: [phone] Interpretation and review of laboratory results Abnormal [facility] Work Phone: [phone] Lymphocytes (Bld) [#/Vol] 2.3 10*3/uL 1.0 - 4.3 10*3/uL [facility] Work Phone: [phone] Lymphocytes/100 WBC (Bld) 28.2 % 20.0 - 40.0 % [facility] Work Phone: [phone] MCH (RBC) [Entitic mass] 30.4 pg 26.0 - 34.0 pg [facility] Work Phone: [phone] MCHC (RBC) [Mass/Vol] 33.6 % 32.0 - 36.0 % [facility] Work Phone: [phone] MCV (RBC) [Entitic vol] 90.3 fL 79.0 - 98.0 fL [facility] Work Phone: [phone] Monocytes (Bld) [#/Vol] 0.7 10*3/uL 0.0 - 0.8 10*3/uL [facility] Work Phone: [phone] Monocytes/100 WBC (Bld) 8.4 % 2.0 - 10.0 % [facility] Work Phone: [phone] Platelet distribution width (Bld) [Ratio] 14.6 % High 11.5 - 14.5 % [facility] Work Phone: [phone] Platelet mean volume (Bld) [Entitic vol] 8.0 fL 7.4 - 10.4 fL [facility] Work Phone: [phone] Platelets (Bld) [#/Vol] 268 10*3/uL 140 - 440 10*3/uL [facility] Work Phone: [phone] RBC (Bld) [#/Vol] 4.96 10*6/uL 3.80 - 5.2 0 10*6/uL [facility] Work Phone: [phone] WBC (Bld) [#/Vol] 8.2 10*3/uL 3.6 - 10.7 10*3/uL [facility] Work Phone: Test Performed by [facility], [address] , [place], [place] [address] [facility] Work Phone: [facility] Work Phone: Comp Metabolic Panelon 05-10 ALP [Catalytic activity/Vol] 122 U/L Normal 38-126 [facility] Comment on above: Performed By: #### A PTT, TSH5, HEMDF, LDH3, DDI2, BMP3M, ESR, FOLT3, URIC3, FEIBC, FERR3, B12, FT4M #### [facility] [address] [place] [address] #### HVAAO, ANA3, HEPAN, B2GPG, B2GPM, B2GPA #### [address] [phone] #### LUPUS #### The performing lab is in the report. ALT [Catalytic activity/Vol] 19 U/L Normal 0-34 [facility] Comment on above: Result Comment: The ALT test is performed by an updated assay method. Please note that the reference intervals have been changed and are now sex specific. Performed By: #### A PTT, TSH5, HEMDF, LDH3, DDI2, BMP3M, ESR, FOLT3, URIC3, FEIBC, FERR3, B12, FT4M #### [facility] [address] [place] [address] #### HVAAO, ANA3, HEPAN, B2GPG, B2GPM, B2GPA #### [address] [phone] #### LUPUS #### The performing lab is in the report. AST [Catalytic activity/Vol] 33 U/L Normal 15-46 [facility] Comment on above: Performed By: #### A PTT, TSH5, HEMDF, LDH3, DDI2, BMP3M, ESR, FOLT3, URIC3, FEIBC, FERR3, B12, FT4M #### [place] [address] [place] [address] #### HVAAO, ANA3, HEPAN, B2GPG, B2GPM, B2GPA #### [address] #### LUPUS #### The performing lab is in the report. Calcium [Mass/Vol] 9.8 mg/dL Normal 8.4-10.4 [facility] Comment on above: Performed By: #### A PTT, TSH5, HEMDF, LDH3, DDI2, BMP3M, ESR, FOLT3, URIC3, FEIBC, FERR3, B12, FT4M #### [address] [place] #### HVAAO, ANA3, HEPAN, B2GPG, B2GPM, B2GPA #### [address] #### LUPUS #### The performing lab is in the report. Glucose [Mass/Vol] 98 mg/dL Normal 70-100 [facility] Comment on above: Performed By: #### A PTT, TSH5, HEMDF, LDH3, DDI2, BMP3M, ESR, FOLT3, URIC3, FEIBC, FERR3, B12, FT4M #### [address] [place] #### HVAAO, ANA3, HEPAN, B2GPG, B2GPM, B2GPA #### [address] #### LUPUS #### The performing lab is in the report. Protein [Mass/Vol] 8.0 g/dL Normal 6.3-8.2 [facility] Comment on above: Performed By: #### A PTT, TSH5, HEMDF, LDH3, DDI2, BMP3M, ESR, FOLT3, URIC3, FEIBC, FERR3, B12, FT4M #### [address] [place] #### HVAAO, ANA3, HEPAN, B2GPG, B2GPM, B2GPA #### [address] #### LUPUS #### The performing lab is in the report. Urea nitrogen [Mass/Vol] 22 mg/dL High 7-20 [facility] Comment on above: Performed By: #### A PTT, TSH5, HEMDF, LDH3, DDI2, BMP3M, ESR, FOLT3, URIC3, FEIBC, FERR3, B12, FT4M #### [place] [address] [place] [address] #### HVAAO, ANA3, HEPAN, B2GPG, B2GPM, B2GPA #### [address] #### LUPUS #### The performing lab is in the report. Anion gap [Moles/Vol] 6 mmol/L Normal 3-13 [facility] Comment on above: Performed By: #### A PTT, TSH5, HEMDF, LDH3, DDI2, BMP3M, ESR, FOLT3, URIC3, FEIBC, FERR3, B12, FT4M #### [place] [address] [place] #### HVAAO, ANA3, HEPAN, B2GPG, B2GPM, B2GPA #### [address] #### LUPUS #### The performing lab is in the report. Bilirubin [Mass/Vol] 0.7 mg/dL Normal 0.2-1.3 [facility] Comment on above: Performed By: #### A PTT, TSH5, HEMDF, LDH3, DDI2, BMP3M, ESR, FOLT3, URIC3, FEIBC, FERR3, B12, FT4M #### [place] [address] [place] [address] #### HVAAO, ANA3, HEPAN, B2GPG, B2GPM, B2GPA #### [address] #### LUPUS #### The performing lab is in the report. CO2 [Moles/Vol] 30 mmol/L Normal 22-30 [facility] Comment on above: Performed By: #### A PTT, TSH5, HEMDF, LDH3, DDI2, BMP3M, ESR, FOLT3, URIC3, FEIBC, FERR3, B12, FT4M #### [place] [address] [place] [address] #### HVAAO, ANA3, HEPAN, B2GPG, B2GPM, B2GPA #### [address] #### LUPUS #### The performing lab is in the report. Creatinine [Mass/Vol] 0.99 mg/dL Normal 0.52-1.25 [facility] Comment on above: Performed By: #### A PTT, TSH5, HEMDF, LDH3, DDI2, BMP3M, ESR, FOLT3, URIC3, FEIBC, FERR3, B12, FT4M #### [address] [place] [address] #### HVAAO, ANA3, HEPAN, B2GPG, B2GPM, B2GPA #### [address] #### LUPUS #### The performing lab is in the report. GFR/1.73 sq M.predicted among blacks MDRD (S/P/Bld) [Vol rate/Area] 63.2 mL/min/{1.73_m2} Normal >60 [facility] Comment on above: Performed By: #### A PTT, TSH5, HEMDF, LDH3, DDI2, BMP3M, ESR, FOLT3, URIC3, FEIBC, FERR3, B12, FT4M #### [address] [place] [address] #### HVAAO, ANA3, HEPAN, B2GPG, B2GPM, B2GPA #### [address] #### LUPUS #### The performing lab is in the report. GFR/1.73 sq M.predicted among non-blacks MDRD (S/P/Bld) [Vol rate/Area] 54.6 mL/min/{1.73_m2} Abnormal >60 [facility] Comment on above: Result Comment: KDIG O [...] FOLT3, URIC3, FEIBC, FERR3, B12, FT4M #### [facility] [employer] [facility] [address] [place] [address] #### HVAAO, ANA3, HEPAN, B2GPG, B2GPM, B2GPA #### [address] #### LUPUS #### The performing lab is in the report. Albumin [Mass/Vol] 4.1 g/dL Normal 3.5-5.0 [facility] Comment on above: Performed By: #### A PTT, TSH5, HEMDF, LDH3, DDI2, BMP3M, ESR, FOLT3, URIC3, FEIBC, FERR3, B12, FT4M #### [facility] [address] [place] [address] #### HVAAO, ANA3, HEPAN, B2GPG, B2GPM, B2GPA #### [address] [phone] #### LUPUS #### The performing lab is in the report. Chloride [Moles/Vol] 105 mmol/L Normal 98-107 [facility] Comment on above: Performed By: #### A PTT, TSH5, HEMDF, LDH3, DDI2, BMP3M, ESR, FOLT3, URIC3, FEIBC, FERR3, B12, FT4M #### [facility] [address] [place] [address] #### HVAAO, ANA3, HEPAN, B2GPG, B2GPM, B2GPA #### [address] #### LUPUS #### The performing lab is in the report. Potassium [Moles/Vol] 4.3 mmol/L Normal 3.5-5.1 [facility] Comment on above: Performed By: #### A PTT, TSH5, HEMDF, LDH3, DDI2, BMP3M, ESR, FOLT3, URIC3, FEIBC, FERR3, B12, FT4M #### [facility] [address] [place] [address] #### HVAAO, ANA3, HEPAN, B2GPG, B2GPM, B2GPA #### [address] #### LUPUS #### The performing lab is in the report. Sodium [Moles/Vol] 141 mmol/L Normal 135-145 [facility] Comment on above: Performed By: #### A PTT, TSH5, HEMDF, LDH3, DDI2, BMP3M, ESR, FOLT3, URIC3, FEIBC, FERR3, B12, FT4M #### [facility] [address] [place] [address] #### HVAAO, ANA3, HEPAN, B2GPG, B2GPM, B2GPA #### [address] #### LUPUS #### The performing lab is in the report. Comprehensive Metabolic Pane lOrdered By: Cynthia Uribe on 05-10-2021 Albumin [Mass/Vol] 4.1 g/dL 3.5 - 5.0 g/dL [facility] Work Phone: [phone] ALP (Bld) [Catalytic activity/Vol] 122 U/L 38 - 126 U/L [facility] Work [facility]: ALT [Catalytic activity/Vol] 19 U/L 0 - 34 U/L [facility] Work Phone: Comment on above: The ALT test is perf ormed by an updated assay method. Please note that the reference intervals have been changed and are now sex specific. Anion gap [Moles/Vol] 6 mmol/L 3 - 13 mmol/L [facility] Work Phone: AST [Catalytic activity/Vol] 33 U/L 15 - 46 U/L [facility] Work Phone: Bilirubin [Mass/Vol] 0.7 mg/dL 0.2 - 1 .3 mg/dL [facility] Work Phone: [phone] Calcium [Mass/Vol] 9.8 mg/dL 8.4 - 10. 4 mg/dL [facility] Work Phone: Chloride [Moles/Vol] 105 mmol/L 98 - 10 7 mmol/L [facility] Work Phone: [phone] CO2 [Moles/Vol] 30 mmol/L 22 - 30 mmol/L [facility] Work Phone: Creatinine [Mass/Vol] 0.99 mg/dL 0.52 - 1.25 mg/dL [facility] Work Phone: EGFR IF NonAfrican Citizen Of [place] 54.6 mL/min Abnormal >60 [facility] Work Phone: Comment on above: KDIGO guidelines pro vide [...] fraction] 8.0 g/dL 6.3 - 8.2 g/dL [facility] Work Phone: [phone] GFR/1.73 sq M.predicted among blacks MDRD (S/P/Bld) [Vol rate/Area] 63.2 mL/min/{1.73_m2} >60 [facility] Work Phone: [phone] Glucose [Mass/Vol] 98 mg/dL 70 - 100 mg/dL [facility] Work Phone: [phone] Interpretation and review of laboratory results Abnormal [facility] Work Phone: [phone] Potassium [Moles/Vol] 4.3 mmol/L 3.5 - 5.1 mmol/L [facility] Work Phone: [phone] Sodium [Moles/Vol] 141 mmol/L 135 - 145 mmol/L [facility] Work Phone: [phone] Urea nitrogen (BldV) [Mass/Vol] 22 mg/dL High 7 - 20 mg/dL [facility] Work Phone: [phone] Test Performed by [facility], [address] [place] [address] Rd. , [place], [place] [address] Work Phone: [phone] [facility] Work Phone: [phone] Hemogram w/ Autodiffon 05-10 Abs Baso Cnt 0.1 10*3/uL Normal 0.0-0.2 [facility] Comment on above: Performed By: #### A PTT, TSH5, HEMDF, LDH3, DDI2, BMP3M, ESR, FOLT3, URIC3, FEIBC, FERR3, B12, FT4M #### [facility] [employer] [address] [place] [address] #### HVAAO, ANA3, HEPAN, B2GPG, B2GPM, B2GPA #### [facility] [employer] [address] [place], [place] #### LUPUS #### The performing lab is in the report. Abs Neutrophile Cnt 4.9 10*3/uL Normal 1.8-7.0 [facility] Comment on above: Performed By: #### A PTT, TSH5, HEMDF, LDH3, DDI2, BMP3M, ESR, FOLT3, URIC3, FEIBC, FERR3, B12, FT4M #### [facility] [address] [place] [address] #### HVAAO, ANA3, HEPAN, B2GPG, B2GPM, B2GPA #### [place] [address] [place], [place] #### LUPUS #### The performing lab is in the report. Basophils/100 WBC (Bld) 0.8 % Normal 0.0-2.0 [facility] Comment on above: Performed By: #### A PTT, TSH5, HEMDF, LDH3, DDI2, BMP3M, ESR, FOLT3, URIC3, FEIBC, FERR3, B12, FT4M #### [facility] [address] [place], [place] #### HVAAO, ANA3, HEPAN, B2GPG, B2GPM, B2GPA #### [address] #### LUPUS #### The performing lab is in the report. Eosinophils (Bld) [#/Vol] 0.3 10*3/uL Normal 0.0-0.5 [facility] Comment on above: Performed By: #### A PTT, TSH5, HEMDF, LDH3, DDI2, BMP3M, ESR, FOLT3, URIC3, FEIBC, FERR3, B12, FT4M #### [facility] [address] [place] [address] #### HVAAO, ANA3, HEPAN, B2GPG, B2GPM, B2GPA #### [address] #### LUPUS #### The performing lab is in the report. Eosinophils/100 WBC (Bld) 3.2 % Normal 1.0-6.0 [facility] Comment on above: Performed By: #### A PTT, TSH5, HEMDF, LDH3, DDI2, BMP3M, ESR, FOLT3, URIC3, FEIBC, FERR3, B12, FT4M #### [facility] [address] [place] [address] #### HVAAO, ANA3, HEPAN, B2GPG, B2GPM, B2GPA #### [address] #### LUPUS #### The performing lab is in the report. Erythrocyte distribution width (RBC) [Ratio] 14.6 % High 11.5-14.5 [facility] Comment on above: Performed By: #### A PTT, TSH5, HEMDF, LDH3, DDI2, BMP3M, ESR, FOLT3, URIC3, FEIBC, FERR3, B12, FT4M #### [address] [place] [address] #### HVAAO, ANA3, HEPAN, B2GPG, B2GPM, B2GPA #### [address] #### LUPUS #### The performing lab is in the report. Granulocytes/100 WBC (Bld) 59.4 % Normal 40.0-80.0 [facility] Comment on above: Performed By: #### A PTT, TSH5, HEMDF, LDH3, DDI2, BMP3M, ESR, FOLT3, URIC3, FEIBC, FERR3, B12, FT4M #### [address] [place] [address] #### HVAAO, ANA3, HEPAN, B2GPG, B2GPM, B2GPA #### [address] #### LUPUS #### The performing lab is in the report. Hematocrit (Bld) [Volume fraction] 44.8 % Normal 35.0-47.0 [facility] Comment on above: Performed By: #### A PTT, TSH5, HEMDF, LDH3, DDI2, BMP3M, ESR, FOLT3, URIC3, FEIBC, FERR3, B12, FT4M #### [place] [address] [place] [address] #### HVAAO, ANA3, HEPAN, B2GPG, B2GPM, B2GPA #### [address] #### LUPUS #### The performing lab is in the report. Hemoglobin (Bld) [Mass/Vol] 15.1 g/dL Normal 11.7-16.0 [facility] Comment on above: Performed By: #### A PTT, TSH5, HEMDF, LDH3, DDI2, BMP3M, ESR, FOLT3, URIC3, FEIBC, FERR3, B12, FT4M #### [address] [place] [id number] #### HVAAO, ANA3, HEPAN, B2GPG, B2GPM, B2GPA #### [address] #### LUPUS #### The performing lab is in the report. Lymphocytes (Bld) [#/Vol] 2.3 10*3/uL Normal 1.0-4.3 [facility] Comment on above: Performed By: #### A PTT, TSH5, HEMDF, LDH3, DDI2, BMP3M, ESR, FOLT3, URIC3, FEIBC, FERR3, B12, FT4M #### [address] [place] [address] #### HVAAO, ANA3, HEPAN, B2GPG, B2GPM, B2GPA #### [address] #### LUPUS #### The performing lab is in the report. Lymphocytes/100 WBC (Bld) 28.2 % Normal 20.0-40.0 [facility] Comment on above: Performed By: #### A PTT, TSH5, HEMDF, LDH3, DDI2, BMP3M, ESR, FOLT3, URIC3, FEIBC, FERR3, B12, FT4M #### [facility] [address] [place] [address] #### HVAAO, ANA3, HEPAN, B2GPG, B2GPM, B2GPA #### [address] #### LUPUS #### The performing lab is in the report. MCH (RBC) [Entitic mass] 30.4 pg Normal 26.0-34.0 [facility] Comment on above: Performed By: #### A PTT, TSH5, HEMDF, LDH3, DDI2, BMP3M, ESR, FOLT3, URIC3, FEIBC, FERR3, B12, FT4M #### [place] [address] [place] #### HVAAO, ANA3, HEPAN, B2GPG, B2GPM, B2GPA #### [address] #### LUPUS #### The performing lab is in the report. MCHC 33.6 % Normal 32.0-36.0 [facility] Comment on above: Performed By: #### A PTT, TSH5, HEMDF, LDH3, DDI2, BMP3M, ESR, FOLT3, URIC3, FEIBC, FERR3, B12, FT4M #### [facility] [address] [place] [address] #### HVAAO, ANA3, HEPAN, B2GPG, B2GPM, B2GPA #### [address] #### LUPUS #### The performing lab is in the report. MCV (RBC) [Entitic vol] 90.3 fL Normal 79.0-98.0 [facility] Comment on above: Performed By: #### A PTT, TSH5, HEMDF, LDH3, DDI2, BMP3M, ESR, FOLT3, URIC3, FEIBC, FERR3, B12, FT4M #### [address] [place] #### HVAAO, ANA3, HEPAN, B2GPG, B2GPM, B2GPA #### [address] #### LUPUS #### The performing lab is in the report. Monocytes (Bld) [#/Vol] 0.7 10*3/uL Normal 0.0-0.8 [facility] Comment on above: Performed By: #### A PTT, TSH5, HEMDF, LDH3, DDI2, BMP3M, ESR, FOLT3, URIC3, FEIBC, FERR3, B12, FT4M #### [address] [place] #### HVAAO, ANA3, HEPAN, B2GPG, B2GPM, B2GPA #### [address] #### LUPUS #### The performing lab is in the report. Monocytes/100 WBC (Bld) 8.4 % Normal 2.0-10.0 [facility] Comment on above: Performed By: #### A PTT, TSH5, HEMDF, LDH3, DDI2, BMP3M, ESR, FOLT3, URIC3, FEIBC, FERR3, B12, FT4M #### [address] [place] #### HVAAO, ANA3, HEPAN, B2GPG, B2GPM, B2GPA #### [address] #### LUPUS #### The performing lab is in the report. Platelet mean volume (Bld) [Entitic vol] 8.0 fL Normal 7.4-10.4 [facility] Comment on above: Performed By: #### A PTT, TSH5, HEMDF, LDH3, DDI2, BMP3M, ESR, FOLT3, URIC3, FEIBC, FERR3, B12, FT4M #### [address] [place] [address] #### HVAAO, ANA3, HEPAN, B2GPG, B2GPM, B2GPA #### [address] #### LUPUS #### The performing lab is in the report. Platelets (Bld) [#/Vol] 268 10*3/uL Normal 140-440 [facility] Comment on above: Performed By: #### A PTT, TSH5, HEMDF, LDH3, DDI2, BMP3M, ESR, FOLT3, URIC3, FEIBC, FERR3, B12, FT4M #### [facility] [address] [place], [place] #### HVAAO, ANA3, HEPAN, B2GPG, B2GPM, B2GPA #### [address] #### LUPUS #### The performing lab is in the report. RBC (Bld) [#/Vol] 4.96 10*6/uL Normal 3.80-5.20 [facility] Comment on above: Performed By: #### A PTT, TSH5, HEMDF, LDH3, DDI2, BMP3M, ESR, FOLT3, URIC3, FEIBC, FERR3, B12, FT4M #### [facility] [address] [place] [address] #### HVAAO, ANA3, HEPAN, B2GPG, B2GPM, B2GPA #### [address] #### LUPUS #### The performing lab is in the report. WBC (Bld) [#/Vol] 8.2 10*3/uL Normal 3.6-10.7 [facility] Comment on above: Performed By: #### A PTT, TSH5, HEMDF, LDH3, DDI2, BMP3M, ESR, FOLT3, URIC3, FEIBC, FERR3, B12, FT4M #### [facility] [address] [place], [place] #### HVAAO, ANA3, HEPAN, B2GPG, B2GPM, B2GPA #### [place] [address] [place] [address] #### LUPUS #### The performing lab is in the report. Hep C Antibodyon 05-10-2021 Hep C Antibody Not detected Normal Not Detected [facility] Comment on above: Result Comment: Patients with DETECTED Hepatitis C Ab results should have a new specimen submitted for supplemental testing with a Hepatitis C Quantitative RNA assay (viral load), if clinically indicated. Performed By: #### A PTT, TSH5, HEMDF, LDH3, DDI2, BMP3M, ESR, FOLT3, URIC3, FEIBC, FERR3, B12, FT4M #### [place] [address] [place] [address] #### HVAAO, ANA3, HEPAN, B2GPG, B2GPM, B2GPA #### [place] [address] [place] [id number] #### LUPUS #### The performing lab is in the report. Hepatitis C AntibodyOrdered By: Cynthia Uribe on 05-10-2021 Hepatitis C Ab Not detected Not Detected NA [facility] Work Phone: Comment on above: Patients with DETECTED Hepatitis C Ab results should have a new specimen submitted for supplemental testing with a Hepatitis C Quantitative RNA assay (viral load), if clinically indicated. Test Performed by [facility], [address] [place] [id number] [facility] Work Phone: [employer] Work Phone: TSH without ReflexOrdered By : Cynthia Uribe on 05-10-2021 TSH Qn 2.583 u[IU]/mL 0.465 - 4.680 u[IU]/mL [employer] Work Phone: Test Performed by [facility], [address] , [place], [place] [address] [employer] Work Phone: [employer] Work Phone: Thyroid Stim. Hormoneon 04-22 Thyroid Stim. Hormone 2.583 u[IU]/mL Normal 0.465-4.68 0 [facility] Comment on above: Performed By: #### A PTT, TSH5, HEMDF, LDH3, DDI2, BMP3M, ESR, FOLT3, URIC3, FEIBC, FERR3, B12, FT4M #### [facility] [address] [place] [address] #### HVAAO, ANA3, HEPAN, B2GPG, B2GPM, B2GPA #### [facility] [address] [place] [address] #### LUPUS #### The performing lab is in the report. Vit D 25-OH, Totalon 021 Vit D 25-OH, Total 51 ng/mL Normal 30-100 [facility] Comment on above: Result Comment: Ther apy is based on measurement of Total 25- OHD with the following classification levels: Less than 20 ng/mL: Indicative of Vit D deficiency 20-30 ng/mL: Suggests Vit D insufficiency Optimal: Greater than or equal to 30 ng/mL Test performed by [facility] [employer], measuring Total Vitamin D, not individual fractions. Performed By: #### A PTT, TSH5, HEMDF, LDH3, DDI2, BMP3M, ESR, FOLT3, URIC3, FEIBC, FERR3, B12, FT4M #### [facility] [address] [place] [address] #### HVAAO, ANA3, HEPAN, B2GPG, B2GPM, B2GPA #### [facility] [address] [place] [address] #### LUPUS #### The performing lab is in the report. Vitamin D 25 HydroxyOrdered By: Cynthia Uribe on 05-10-2021 Vit D, 25-Hydroxy 51 ng/mL 30 - 100 ng/mL [facility] Work Phone: Comment on above: Therapy is based on measurement of Total 25-OHD with the following classification levels: Less than 20 ng/mL: Indicative of Vit D deficiency 20-30 ng/mL: Suggests Vit D insufficiency Optimal: Greater than or equal to 30 ng/mL Test performed by [facility] [employer], measuring Total Vitamin D, not individual fractions. Test Performed by [facility], [address] [place], [place] [address] [employer] Work Phone: [employer] Work Phone: Brain Natriuretic Peptideon 11-02-2020 Natriuretic peptide B (Bld) [Mass/Vol] 51 pg/mL 0 - 450 pg/mL [facility] Work Phone: COVID-19, Rapidon 11-02-2020 Sodium [Moles/Vol] see below [employer] Work Phone: Comment on above: Not Detected Expected Result: Not Detected _ Isothermal nucleic acid amplification performed on the [facility] System by the [facility] Negative results do not preclude SARS-CoV-2 infection and should not be used as the sole basis for treatment or other patient management decisions. This assay was developed by [employer] and distributed under an Emergency Use Authorization (EUA) granted by the FDA for the qualitative detection of SARS-CoV-2 nucleic acid. Provider and patient fact sheets can be found at https://www.fda.gov/media/262469/download and https://www.fda.gov/media/263438/download. Test Performed by [facility], [address] [place], [place] [address] [facility] Work Phone: CT Abdomen Pelvis W Contrast on 11-02-2020 Patient Name: CHAY TEAGUE Computed Tomography ACCESSION EXAM DATE/TIME PROCEDURE ORDERING PROVIDER [id number] 11/02/2020 17:[address] Abdomen/Pelvis w/ IV [id number] JAME DEGROOT Contrast (IV Onl CPT code 70702 Q9967 Reason For Exam (CT Abdomen/Pelvis w/ [...] Time: 11/02/2020 6:00 [facility] Work Phone: Jt, [facility] Incoming Radiology Results From [facility] - 11/02/2020 6:01 PM EST Patient Name: CHAY TEAGUE Computed Tomography ACCESSION EXAM DATE/TIME PROCEDURE ORDERING PROVIDER [id number] 11/02/2020 17:[address] Abdomen/Pelvis w/ IV [id number] -JAME BEST Contrast (IV Onl CPT code 49020 Q9967 Reason For Exam (CT Abdomen/Pelvis w/ [...] Tomography ACCESSION EXAM DATE/TIME PROCEDURE ORDERING PROVIDER [id number] 11/02/2020 17:[address] Head or Brain w/o [id number] -GOMBASH, JAME Contrast CPT code 70096 Reason For Exam (CT Head or Brain [...] Phone: Jt, [facility] Incoming Radiology Results From [facility] - 11/02/2020 5:37 PM EST Patient Name: CHAY TEAGUE Computed Tomography ACCESSION EXAM DATE/TIME PROCEDURE ORDERING PROVIDER [id number] 11/02/2020 17:[address] Head or Brain w/o [id number] -GOMBASH, JAME Contrast CPT code 80774 Reason For Exam (CT Head or Brain [...] (PE study)on 11-02-2020 Patient Name: CHAY TEAGUE Computed Tomography ACCESSION EXAM DATE/TIME PROCEDURE ORDERING PROVIDER [id number] 11/02/2020 17:36 EST CTA Chest w/ + w/o [id number] -JAME BEST Contrast CPT code 51802 Reason For Exam (CTA Chest w/ + [...] Phone: [facility]t, [facility] Incoming Radiology Results From [facility] - 11/02/2020 5:51 PM EST Patient Name: CHAY TEAGUE Computed Tomography ACCESSION EXAM DATE/TIME PROCEDURE ORDERING PROVIDER [id number] 11/02/2020 17:36 EST CTA Chest w/ + w/o [id number] -JAME BEST Contrast CPT code 30819 Reason For Exam (CTA Chest w/ + [...] ROBERT Transcribed Date and Time: 11/02/2020 5:51 [facility] Work Phone: [phone] Comprehensive Metabolic Pane skylar 11-02-2020 Albumin [Mass/Vol] 3.8 g/dL 3.5 - 5 g/dL [facility] Work Phone: 1 ALP [Catalytic activity/Vol] 113 U/L 38 - 126 U/L [facility] Work Phone: [phone] ALT [Catalytic activity/Vol] 22 U/L 0 - 34 U/L [facility] Work Phone: [phone] Comment on above: The ALT test is perf ormed by an updated assay method. Please note that the reference intervals have been changed and are now sex specific. Anion gap [Moles/Vol] 7 mmol/L [facility] Work Phone: [phone] AST [Catalytic activity/Vol] 42 U/L 15 - 46 U/L [facility] Work Phone: [phone] Bilirubin Ql (U) 0.5 mg/dL 0.2 - 1.3 mg/dL [facility] Work Phone: [phone] Calcium [Mass/Vol] 9.1 mg/dL 8.4 - 10. 4 mg/dL [facility] Work Phone: [phone] Chloride [Moles/Vol] 102 mmol/L 98 - 10 7 mmol/L [facility] Work Phone: [phone] CO2 [Moles/Vol] 29 mmol/L 22 - 30 mmol/L [facility] Work Phone: [phone] Creatinine [Mass/Vol] 1.02 mg/dL 0.52 - 1.25 mg/dL [facility] Work Phone: EGFR IF NonAfrican Citizen [place] 52.8 mL/min Abnormal >60 [facility] Work Phone: Comment on above: KDIGO guidelines pro vide [...] rate/Area] 61.2 mL/min/{1.73_m2} >60 [facility] Work Phone: Glucose [Mass/Vol] 100 mg/dL 70 - 100 mg/dL [facility] Work Phone: Interpretation and review of laboratory results Abnormal [facility] Work Phone: Potassium [Moles/Vol] 3.3 mmol/L Low 3.5 - 5.1 mmol/L [facility] Work Phone: Protein [Mass/Vol] 7.0 g/dL 6.3 - 8.2 g/dL [facility] Work Phone: Sodium [Moles/Vol] 138 mmol/L 135 - 145 mmol/L [facility] Work Phone: Urea nitrogen [Mass/Vol] 16 mg/dL 7 - 20 mg/dL [facility] Work Phone: Hemogram (CBC) w/Auto Diffon 11-02-2020 Absolute Baso # 0.1 10*3/uL 0 - 0.2 10*3/uL [facility] Work Phone: [phone] Absolute Neut # 5.4 10*3/uL 1.8 - 7 10*3/uL [facility] Work Phone: [phone] Basophils/100 WBC (Bld) 0.7 % 0 - 2 % [facility] Work Phone: [phone] Eosinophils (Bld) [#/Vol] 0.3 10*3/uL 0 - 0.5 10*3/uL [facility] Work Phone: [phone] Eosinophils/100 WBC (Bld) 3.2 % 1 - 6 % [facility] Work Phone: [phone] Erythrocyte distribution width (RBC) [Ratio] 14.7 % High 11.5 - 14.5 % [facility] Work Phone: [phone] Granulocytes/100 WBC (Bld) 54.6 % 40 - 80 % [facility] Work Phone: [phone] Hematocrit (Bld) [Volume fraction] 40.5 % 35 - 47 % [facility] Work Phone: [phone] Hemoglobin (Bld) [Mass/Vol] 13.4 g/dL 11.7 - 16 g/dL [facility] Work Phone: [phone] Interpretation and review of laboratory results Abnormal [facility] Work Phone: [phone] Lymphocytes (Bld) [#/Vol] 3.2 10*3/uL 1 - 4.3 10*3/uL [facility] Work Phone: () [phone] Lymphocytes/100 WBC (Bld) 32.4 % 20 - 40 % [facility] Work Phone: [phone] MCH (RBC) [Entitic mass] 29.7 pg 26 - 34 pg [facility] Work Phone: [phone] MCHC (RBC) [Mass/Vol] 33.2 % 32 - 36 % [facility] Work Phone: [phone] MCV (RBC) [Entitic vol] 89.5 fL 79 - 98 fL [facility] Work Phone: () [phone] Monocytes (Bld) [#/Vol] 0.9 10*3/uL High 0 - 0.8 10*3/uL [facility] Work Phone: [phone] Monocytes/100 WBC (Bld) 9.1 % 2 - 10 % [facility] Work Phone: [phone] Platelet mean volume (Bld) [Entitic vol] 9.0 fL 7.4 - 10.4 fL [facility] Work Phone: [phone] Platelets (Bld) [#/Vol] 295 10*3/uL 140 - 440 10*3/uL [facility] Work Phone: [phone] RBC (Bld) [#/Vol] 4.53 10*6/uL 3.8 - 5.2 10*6/uL [facility] Work Phone: [phone] WBC (Bld) [#/Vol] 9.9 10*3/uL 3.6 - 10.7 10*3/uL [facility] Work Phone: [phone] Test Performed by [facility], [address] [place] [id number] [place], [place] [address]A Work Phone: [phone] Lactic Acid, Plasmaon 2020 Lactate [Moles/Vol] 1.4 mmol/L 0.7 - 2 mmol/L [facility] Work Phone: [phone] Otheron 11-02-2020 Test Performed by [facility], [address] [place] [id number] [place], [place] [address]A Work Phone: [phone] Test Performed by [facility], [address] [place] [id number] [place], [place] [address]A Work Phone: [phone] Protime-INRon 11-02-2020 INR Coag (PPP) [Relative time] {INR} [facility] Work Phone: [phone] Comment on above: Recommended Anticoag ulant [...] [Time] 9.8 s 9 - 12 s [facility] Work Phone: Comment on above: . Test Performed by [facility], [address] [place], [place] [address] [facility] Work Phone: Troponin x1on 11-02-2020 Troponin I.cardiac [Mass/Vol] ng/mL 0 - 0.034 ng/mL [facility] Work Phone: Comment on above: . Culture, Urineon 03-08-2020 Bacteria identified Cx Nom (U) No growth (<1,000 CFU/ml). [place], [place] Test Performed by [facility], [address] [place] [address] [place], [place] CBCon 03-07-2020 Erythrocyte distribution width (RBC) [Ratio] 15.4 % High 11.5 - 14.5 % [place] Hematocrit (Bld) [Volume fraction] 38.1 % 35 - 47 % [place] Hemoglobin (Bld) [Mass/Vol] 12.7 g/dL 11.7 - 16 g/dL [place] Interpretation and review of laboratory results Abnormal [place] MCH (RBC) [Entitic mass] 29.9 pg 26 - 34 pg [place] MCHC (RBC) [Mass/Vol] 33.4 % 32 - 36 % [place] MCV (RBC) [Entitic vol] 89.5 fL 79 - 98 fL [place] Platelet mean volume (Bld) [Entitic vol] 8.7 fL 7.4 - 10.4 fL [place] Platelets (Bld) [#/Vol] 248 10*3/uL 140 - 440 10*3/uL [place] RBC (Bld) [#/Vol] 4.26 10*6/uL 3.8 - 5.2 10*6/uL [place] WBC (Bld) [#/Vol] 6.2 10*3/uL 3.6 - 10.7 10*3/uL [place] Test Performed by [facility], [address] [place], [place] [address] [place] Comprehensive Metabolic Pane l w/ Reflex to MGon 03-07-2020 Albumin [Mass/Vol] 3.5 g/dL 3.5 - 5 g/dL [place] ALP [Catalytic activity/Vol] 125 U/L 38 - 126 U/L [place] ALT [Catalytic activity/Vol] 31 U/L 0 - 34 U/L [place] Comment on above: The ALT test is perf ormed by an updated assay method. Please note that the reference intervals have been changed and are now sex specific. Anion gap [Moles/Vol] 10 mmol/L [place] AST [Catalytic activity/Vol] 45 U/L 15 - 46 U/L [place] Bilirubin Ql (U) 0.6 mg/dL 0.2 - 1.3 mg/dL [place] Calcium [Mass/Vol] 8.3 mg/dL Low 8.4 - 10. 4 mg/dL [place] Chloride [Moles/Vol] 107 mmol/L 98 - 10 7 mmol/L [place] CO2 [Moles/Vol] 27 mmol/L 22 - 30 mmol/L [place] Creatinine [Mass/Vol] 0.76 mg/dL 0.52 - 1.25 mg/dL [place] EGFR IF NonAfrican Citizen [place] 75.7 mL/min >60 [place] Comment on above: KDIGO guidelines pro [...] MDRD (S/P/Bld) [Vol rate/Area] 87.8 mL/min/{1.73_m2} >60 [facility] [place], [place] Glucose [Mass/Vol] 101 mg/dL High 70 - 100 mg/dL [facility], [place] Potassium [Moles/Vol] 3.7 mmol/L 3.5 - 5.1 mmol/L [facility], [place] Protein [Mass/Vol] 6.6 g/dL 6.3 - 8.2 g/dL [facility], [place] Sodium [Moles/Vol] 144 mmol/L 135 - 145 mmol/L [facility], [place] Urea nitrogen [Mass/Vol] 15 mg/dL 7 - 20 mg/dL [facility], [place] ECHO Complete 2D W Doppler W Coloron 03-07-2020 TRANSTHORACIC ECHOCARDIOGRAM PATIENT: Chay Teague STUDY DATE: 03/07/2020 : 1945 AGE: 74 HT/WT: 160 cm (63 90.7 kg in) (199.6 lb) GENDER: F BP: 160 / 101 LOCATION: [facility] PATIENT Observation [facility] STATUS: *ORDERING PHYSICIAN: * Delia Chavez *READING PHYSICIAN: * John Whitlock MD, *[employer]: * Skye Garcia [facility] INDICATIONS: TIA CONCLUSIONS SUMMARY: 1. Left ventricle: [...] range. Electronically signed by John Whitlock MD, [facility] 03/07/2020 12:07 Prior Signatures: [facility], [facility] Incoming Cardiology Results From [employer] - 03/07/2020 12:08 PM EDT TRANSTHORACIC ECHOCARDIOGRAM PATIENT: Chay Teague STUDY DATE: 03/07/2020 : 1945 AGE: 74 HT/WT: 160 cm (63 90.7 kg in) (199.6 lb) GENDER: F BP: 160 / 101 LOCATION: [facility] PATIENT Observation [facility] STATUS: *ORDERING PHYSICIAN: * Delia Chavez *READING PHYSICIAN: * John Whitlock MD, *[employer]: * Skye Garcia [facility] INDICATIONS: TIA CONCLUSIONS SUMMARY: 1. Left ventricle: [...] range. Electronically signed by John Whitlock MD, [facility] 03/07/2020 12:07 Prior Signatures: [employer] EKG 12 Leadon 03-07-2020 [place] Test Date: 2020-03-06 Pat Name: Chay Teague Department: Room: 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1945 Requested By: EMILY REESE Order Number: [id number] Joan MARIANO: Niels Reese Measurements Intervals [place] Rate: 95 P: 70 WY: 176 QRS: -36 QRSD: 120 T: 45 QT: 388 QTc: 488 Interpretive Statements SINUS RHYTHM PROBABLE LEFT ATRIAL ABNORMALITY IVCD, CONSIDER ATYPICAL RBBB Compared to ECG 03/06/2017 15:56:33 No significant changes Electronically Signed On 03-07-2020 16:39:39 EDT by Niels Reese [employer] Jt, [facility] Cardiology Results From [employer] - 03/07/2020 4:40 PM EDT [employer] [facility] Test Date: 2020-03-06 Pat Name: Chay Teague Department: Room: 453 Gender: F 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1945 Requested By: EMILY REESE Order Number: [id number] Reading MD: Niels Reese Measurements Intervals [place] Rate: 95 P: 70 WY: 176 QRS: -36 QRSD: 120 T: 45 QT: 388 QTc: 488 Interpretive Statements SINUS RHYTHM PROBABLE LEFT ATRIAL ABNORMALITY IVCD, CONSIDER ATYPICAL RBBB Compared to ECG 03/06/2017 15:56:33 No significant changes Electronically Signed On 03-07-2020 16:39:39 EDT by Niels Reese [place], [place] FOLATEon 03-07-2020 Folate 18.4 ng/mL 2.8 - 20 ng/mL [place] Hemoglobin A1con 03-07-2020 eAG 111 mg/dL [place] HbA1c (Bld) [Mass fraction] 5.5 % 4 - 5.7 % [place] Comment on above: --HgbA1C levels may not be accurate in patients who have renal disease, received recent blood transfusions, are anemic, or who have dyshemoglobinemia. Test Performed by [facility], [address], [place] [address] [place] Lipid panel - fastingon 02-20 Cholesterol [Mass/Vol] 193 mg/dL <200 [place], [place] Cholesterol in HDL [Mass/Vol] 56 mg/dL 40 - 60 mg/dL [place] Cholesterol in LDL [Mass/Vol] 107 mg/dL Abnormal <100 [place], [place] Cholesterol.total/Chol esterol in HDL [Mass ratio] 3 {ratio} [place], [place] Comment on above: Ref Range: < 3 Low Risk for CHD 3-6 Mod Risk for CHD > 6 High Risk for CHD Triglyceride [Mass/Vol] 148 mg/dL <150 [place] MRA head without contrast (R [facility] IMAGING OBTAIN IN THE LAST 2 yrs, to determine indication )on 03-07-2020 Patient Name: CHAY TEAGUE ---MRI--- Exam Date/Time 03/07/2020 11:13:52 EDT Exam MRA Head w/o Contrast Ordering Physician DELIA PIÑA Accession Number [id number] CPT4 Codes 49569 () Reason For Exam acute confusion Report [...] NICHOLAS Transcribed Date and Time: 03/07/2020 12:14 [facility], [place] Jt, [facility] Incoming Radiology Results From [facility] - 03/07/2020 12:14 PM EDT Patient Name: CHAY TEAGUE ---MRI--- Exam Date/Time 03/07/2020 11:13:52 EDT Exam MRA Head w/o Contrast Ordering Physician DELIA PIÑA Accession Number [id number] CPT4 Codes 43212 () Reason For Exam acute confusion Report [...] NICHOLAS Transcribed Date and Time: 03/07/2020 12:14 [place], [place] MRI brain with and without c ontrast (REVIEW IMAGING RECORDS IN THE LAST 2 YRS to determine INDICATION prior to oder )on 03-07-2020 [facility], [facility] Incoming Radiology Results From [facility] - 03/07/2020 12:14 PM EDT Patient Name: CHAY TEAGUE ---MRI--- Exam Date/Time 03/07/2020 11:13:30 EDT Exam MRI Brain w/ + w/o Contrast Ordering Physician DELIA PIÑA Accession Number [id number] CPT4 Codes 95955 () Reason For Exam acute confusion Report [...] NICHOLAS Transcribed Date and Time: 03/07/2020 12:14 [place] Patient Name: CHAY TEAGUE ---MRI--- Exam Date/Time 03/07/2020 11:13:30 EDT Exam MRI Brain w/ + w/o Contrast Ordering Physician DELIA PIAÑ Accession Number [id number] CPT4 Codes 17351 () Reason For Exam acute confusion Report [...] NICHOLAS Transcribed Date and Time: 03/07/2020 12:14 [place], [place] Otheron 03-07-2020 Test Performed by [facility], [address] Interpretation and review of laboratory results Abnormal [place], [place] Test Performed by [facility], [address] [place], [place] [id number] [place] [address] TSH without Reflexon 020 TSH Qn 2.668 u[IU]/mL 0.465 - 4.68 u[IU]/mL [place] Test Performed by [facility], [address] [place], [place] [id number] [place] [address] Troponinon 03-07-2020 Troponin I.cardiac [Mass/Vol] 0.013 ng/mL 0 - 0.034 ng/mL [place], [place] Comment on above: . Test Performed by [facility], [address], [place], [place] [address] [place] Vitamin B12on 03-07-2020 Cobalamin (Vitamin B12) [Mass/Vol] 343 pg/mL 239 - 931 pg/mL [place], [place] Add On Lab Teston 03-06-2020 Sodium [Moles/Vol] Accepted [place], [place] Comment on above: Specimen available & acceptable for analysis. Test Performed by [facility], [address] , [place], [place] [address] [place] Ammoniaon 03-06-2020 Ammonia (P) [Mass/Vol] 13 umol/L 9 - 3 0 umol/L [place] Test Performed by [facility], [address], [place], [place] [address] [place] Brain Natriuretic Peptideon 03-06-2020 Natriuretic peptide B (Bld) [Mass/Vol] 65 pg/mL 0 - 450 pg/mL [place] CBC Auto Differentialon - Absolute Baso # 0.1 10*3/uL 0 - 0.2 10*3/uL [place] Absolute Neut # 4.8 10*3/uL 1.8 - 7 10*3/uL [place] Basophils/100 WBC (Bld) 0.8 % 0 - 2 % [place] Eosinophils (Bld) [#/Vol] 0.3 10*3/uL 0 - 0.5 10*3/uL [place] Eosinophils/100 WBC (Bld) 3.7 % 1 - 6 % [place] Erythrocyte distribution width (RBC) [Ratio] 15.3 % High 11.5 - 14.5 % [place] Granulocytes/100 WBC (Bld) 58.5 % 40 - 80 % [place] Hematocrit (Bld) [Volume fraction] 38.6 % 35 - 47 % [place] Hemoglobin (Bld) [Mass/Vol] 13.3 g/dL 11.7 - 16 g/dL [place] Interpretation and review of laboratory results Abnormal [place] Lymphocytes (Bld) [#/Vol] 2.2 10*3/uL 1 - 4.3 10*3/uL [place] Lymphocytes/100 WBC (Bld) 27.0 % 20 - 40 % [place] MCH (RBC) [Entitic mass] 30.2 pg 26 - 34 pg [place] MCHC (RBC) [Mass/Vol] 34.5 % 32 - 36 % [place] MCV (RBC) [Entitic vol] 87.4 fL 79 - 98 fL [place] Monocytes (Bld) [#/Vol] 0.8 10*3/uL 0 - 0.8 10*3/uL [place] Monocytes/100 WBC (Bld) 10.0 % 2 - 10 % [place] Platelet mean volume (Bld) [Entitic vol] 9.1 fL 7.4 - 10.4 fL [place] Platelets (Bld) [#/Vol] 302 10*3/uL 140 - 440 10*3/uL [place] RBC (Bld) [#/Vol] 4.42 10*6/uL 3.8 - 5.2 10*6/uL [place] WBC (Bld) [#/Vol] 8.2 10*3/uL 3.6 - 10.7 10*3/uL [place] Test Performed by [facility], [address] [place] [address] , [address] HEAD WO CONTRASTon 2019 Patient Name: CHAY TEAGUE ---CT--- Exam Date/Time 03/06/2020 13:04:[address] Head or Brain w/o Contrast Ordering Physician MD REESE GREGORY M Accession Number [id number] CPT4 Codes 84343 () Reason For Exam Altered mental status [...] JASON Transcribed Date and Time: 03/06/2020 1:13 [place] Jt, [facility] Incoming Radiology Results From [facility] - 03/06/2020 1:13 PM EDT Patient Name: CHAY TEAGUE ---CT--- Exam Date/Time 03/06/2020 13:04:[address] Head or Brain w/o Contrast Ordering Physician MD PRITESH, EMILY Rice Accession Number [id number] CPT4 Codes 54613 () Reason For Exam Altered mental status [...] JASON Transcribed Date and Time: 03/06/2020 1:13 [place] Comprehensive Metabolic Pane skylar 03-06-2020 Albumin [Mass/Vol] 4.0 g/dL 3.5 - 5 g/dL [place] ALP [Catalytic activity/Vol] 135 U/L High 38 - 126 U/L [place] ALT [Catalytic activity/Vol] 27 U/L 0 - 34 U/L [place] Comment on above: The ALT test is perf ormed by an updated assay method. Please note that the reference intervals have been changed and are now sex specific. Anion gap [Moles/Vol] 8 mmol/L [place] AST [Catalytic activity/Vol] 43 U/L 15 - 46 U/L [place] Bilirubin Ql (U) 0.7 mg/dL 0.2 - 1.3 mg/dL [place] Calcium [Mass/Vol] 9.1 mg/dL 8.4 - 10. 4 mg/dL [place] Chloride [Moles/Vol] 103 mmol/L 98 - 10 7 mmol/L [place] CO2 [Moles/Vol] 29 mmol/L 22 - 30 mmol/L [place] Creatinine [Mass/Vol] 0.83 mg/dL 0.52 - 1.25 mg/dL [place] EGFR IF Non[place] Citizen [place] 68.1 mL/min >60 [place] Comment on above: KDIGO guidelines pro [...] MDRD (S/P/Bld) [Vol rate/Area] 78.9 mL/min/{1.73_m2} >60 [place] Glucose [Mass/Vol] 116 mg/dL High 70 - 100 mg/dL [place] Interpretation and review of laboratory results Abnormal [place] Potassium [Moles/Vol] 3.1 mmol/L Low 3.5 - 5.1 mmol/L [place] Protein [Mass/Vol] 7.6 g/dL 6.3 - 8.2 g/dL [place] Sodium [Moles/Vol] 140 mmol/L 135 - 145 mmol/L [place] Urea nitrogen [Mass/Vol] 22 mg/dL High 7 - 20 mg/dL [place] Lactic Acid, Plasmaon 2019 Lactate [Moles/Vol] 1.4 mmol/L 0.7 - 2 mmol/L [place] Otheron 03-06-2020 Test Performed by [facility], [address] Test Performed by [facility], [address] , [address] Troponinon 03-06-2020 Troponin I.cardiac [Mass/Vol] ng/mL 0 - 0.034 ng/mL [place] Comment on above: . Test Performed by [facility], [address], [place], [place] [address] [place] [address] Troponin I.cardiac [Mass/Vol] ng/mL 0 - 0.034 ng/mL [place] Comment on above: . Urinalysison 03-06-2020 Appearance (U) Clear Clear NA [place] Comment on above: . Bacteria, UA Few (1-5) Abnormal Negative /[HPF] [place] Comment on above: . Bilirubin Urine Negative Negative mg/dL [place] Comment on above: . Color (U) LIGHT YELLOW Lt. Yellow NA [place] Comment on above: . Glucose, Ur Normal Normal (<70) mg/dL [place] Comment on above: . Interpretation and review of laboratory results Abnormal [place] Ketones Ql (U) Negative Negative mg/dL [place] Comment on above: . LEUKOCYTES, UA 250 Abnormal Negative Jennifer/uL [place] Comment on above: . Nitrite, Urine Negative Negative NA [place] Comment on above: . Non-Squamous Epithelial 0-2 Abnormal Negative /[HPF] [place] Comment on above: . Occult Blood,Urine 0.1 mg/dL Abnormal Negative [place] Comment on above: . pH (U) 5.5 [pH] [place] Comment on above: . Protein (U) [Mass/Vol] Negative Negat alli mg/dL [place] Comment on above: . RBC (U) [#/Vol] Negative 0 - 2 /[HPF] [place] Comment on above: . Specific [place], Urine 1.017 [place], [place] Comment on above: . Squam Epithel, UA 0-2 3 - 5 /[HPF] [place] Comment on above: . Urobilinogen, Urine Normal Normal (0-1) mg/dL [place] Comment on above: . Volume 8-12 ml [place] Comment on above: . WBC, UA 3-5 0 - 5 /[HPF] [place] Comment on above: . Test Performed by [facility], [address] , [address] XR ABDOMEN (KUB) (SINGLE AP VIEW)on 03-06-2020 Patient Name: CHAY TEAGUE ---Diagnostic Radiology--- Exam Date/Time 03/06/2020 21:54:29 EDT Exam CR Abdomen AP Ordering Physician MD BERNARDINO, [facility] Accession Number [id number] CPT4 Codes 43795 () Reason For Exam abdominal pain Report EXAM: CR Abdomen AP INDICATION: Abdominal pain; left upper quadrant pain; history of gastric fundoplication VIEWS: AP COMPARISON: 10/21/2019 pelvis TIME: 21:27 FINDINGS AND IMPRESSION: The bowel gas pattern is nonspecific with moderate fecal retention. The hemidiaphragms are excluded from [id number]. Report Dictated on --- Final --- Dictating Physician: MD MCDERMOTT JENNIFER R Signed Date and Time: 03/06/2020 9:59 pm Signed by: MD MCDERMOTT JENNIFER R Transcribed Date and Time: 03/06/2020 10:01 [employer] [facility], [facility] Incoming Radiology Results From [facility] - 03/06/2020 10:01 PM EDT Patient Name: CHAY TEAGUE ---Diagnostic Radiology--- Exam Date/Time 03/06/2020 21:54:29 EDT Exam CR Abdomen AP Ordering Physician MD LEBRON PRAMOD Accession Number [id number] CPT4 Codes 71845 () Reason For Exam abdominal pain Report EXAM: CR Abdomen AP INDICATION: Abdominal pain; left upper quadrant pain; history of gastric fundoplication VIEWS: AP COMPARISON: 10/21/2019 pelvis TIME: 21:27 FINDINGS AND IMPRESSION: The bowel gas pattern is nonspecific with moderate fecal retention. The hemidiaphragms are excluded from [id number]. Report Dictated on --- Final --- Dictating Physician: MD MCDERMOTT JENNIFER R Signed Date and Time: 03/06/2020 9:59 pm Signed by: MD MCDERMOTT JENNIFER R Transcribed Date and Time: 03/06/2020 10:01 [employer] XR CHEST PORTABLEon 03-06-20 [facility], [facility] Incoming Radiology Results From [facility] - 03/06/2020 1:18 PM EDT Patient Name: CHAY TEAGUE ---Diagnostic Radiology--- Exam Date/Time 03/06/2020 12:50:01 EDT Exam CR Chest Portable Ordering Physician MD REESE GREGORY M Accession Number [id number] CPT4 Codes 14846 () Reason For Exam Shortness of breath [...] JASON Transcribed Date and Time: 03/06/2020 1:18 [place] Patient Name: CHAY TEAGUE ---Diagnostic Radiology--- Exam Date/Time 03/06/2020 12:50:01 EDT Exam CR Chest Portable Ordering Physician MD [facility] Accession Number [id number] CPT4 Codes 80894 () Reason For Exam Shortness of breath [...] JASON Transcribed Date and Time: 03/06/2020 1:18 [place], [place] CBC Auto DifferentialOrdered By: Cynthia Urieb on 08-31-2019 Absolute Baso # 0.1 10*3/uL 0 - 0.2 10*3/uL [facility] Work Phone: Absolute Neut # 5.3 10*3/uL 1.8 - 7 10*3/uL [facility] Work Phone: [phone] Basophils/100 WBC (Bld) 0.7 % 0 - 2 % [facility] Work Phone: [phone] Eosinophils (Bld) [#/Vol] 0.3 10*3/uL 0 - 0.5 10*3/uL [facility] Work Phone: [phone] Eosinophils/100 WBC (Bld) 3.0 % 1 - 6 % [facility] Work Phone: [phone] Erythrocyte distribution width (RBC) [Ratio] 14.7 % High 11.5 - 14.5 % [facility] Work Phone: [phone] Granulocytes/100 WBC (Bld) 59.4 % 40 - 80 % [facility] Work Phone: [phone] Hematocrit (Bld) [Volume fraction] 42.8 % 35 - 47 % [facility] Work Phone: [phone] Hemoglobin (Bld) [Mass/Vol] 14.4 g/dL 11.7 - 16 g/dL [facility] Work Phone: [phone] Interpretation and review of laboratory results Abnormal [employer] Work Phone: [phone] Lymphocytes (Bld) [#/Vol] 2.6 10*3/uL 1 - 4.3 10*3/uL [facility] Work Phone: [phone] Lymphocytes/100 WBC (Bld) 28.6 % 20 - 40 % [employer] Work Phone: [phone] MCH (RBC) [Entitic mass] 30.7 pg 26 - 34 pg [facility] Work Phone: [phone] MCHC 33.5 % 32 - 36 % [facility] Work Phone: [phone] MCV (RBC) [Entitic vol] 91.6 fL 79 - 98 fL [facility] Work Phone: [phone] Monocytes (Bld) [#/Vol] 0.7 10*3/uL 0 - 0.8 10*3/uL [facility] Work Phone: [phone] Monocytes/100 WBC (Bld) 8.3 % 2 - 10 % [facility] Work Phone: [phone] Platelet mean volume (Bld) [Entitic vol] 9.0 fL 7.4 - 10.4 fL [facility] Work Phone: ) [phone] Platelets (Bld) [#/Vol] 273 10*3/uL 140 - 440 10*3/uL [facility] Work Phone: [phone] RBC (Bld) [#/Vol] 4.67 10*6/uL 3.8 - 5.2 10*6/uL [facility] Work Phone: [phone] WBC (Bld) [#/Vol] 9.0 10*3/uL 3.6 - 10.7 10*3/uL [facility] Work Phone: [phone] Test Performed by [facility], [address] [place], [place] [address] , [address] Work Phone: [phone] Comprehensive Metabolic Pane lOrdered By: Cynthia Uribe on 08-31-2019 Albumin [Mass/Vol] 4.0 g/dL 3.5 - 5 g/dL [facility] Work [facility]: [phone] ALP [Catalytic activity/Vol] 134 U/L High 38 - 126 U/L [facility] Work Phone: [phone] ALT [Catalytic activity/Vol] 34 U/L 13 - 69 U/L [facility] Work [facility]: [phone] Anion gap [Moles/Vol] 12 mmol/L [facility] Work Phone: [phone] AST [Catalytic activity/Vol] 31 U/L 15 - 46 U/L [facility] Work [facility]: [phone] Bilirubin [Mass/Vol] 0.3 mg/dL 0.2 - 1 .3 mg/dL [facility] Work Phone: [phone] Calcium [Mass/Vol] 9.3 mg/dL 8.4 - 10. 4 mg/dL [facility] Work Phone: [phone] Chloride [Moles/Vol] 102 mmol/L 98 - 10 7 mmol/L [facility] Work Phone: [phone] CO2 [Moles/Vol] 29 mmol/L 22 - 30 mmol/L [facility] Work Phone: [phone] Creatinine [Mass/Vol] 1.17 mg/dL 0.52 - 1.25 mg/dL [facility] Work Phone: 1 EGFR IF NonAfrican Citizen Of [place] 44.9 mL/min >60 [facility] Work Phone: Comment on above: Source- MDRD equatio n with creatinine calibration to IDMS(NKDEP) eGFR not recommended for drug dose adjustment GFR/1.73 sq M.predicted among blacks MDRD (S/P/Bld) [Vol rate/Area] 54.5 mL/min/{1.73_m2} >60 [facility] Work Phone: [phone] Glucose [Mass/Vol] 109 mg/dL High 70 - 100 mg/dL [facility] Work Phone: [phone] Interpretation and review of laboratory results Abnormal [facility] Work Phone: Potassium [Moles/Vol] 3.7 mmol/L 3.5 - 5.1 mmol/L [facility] Work Phone: Protein [Mass/Vol] 7.4 g/dL 6.3 - 8.2 g/dL [facility] Work Phone: Sodium [Moles/Vol] 142 mmol/L 135 - 145 mmol/L [facility] Work Phone: [phone] Urea nitrogen [Mass/Vol] 29 mg/dL High 7 - 20 mg/dL [facility] Work Phone: Test Performed by [facility], [address] Work Phone: TSH without ReflexOrdered By : Cynthia Uribe on 08-31-2019 TSH 2.584 u[IU]/mL 0.465 - 4.68 u[IU]/mL [facility] Work Phone: 1 Test Performed by [facility], [address] Work Phone: Vitamin D 25 HydroxyOrdered By: Cynthia Uribe on 08-31-2019 Interpretation and review of laboratory results Abnormal [facility] Work Phone: 1 Vit D, 25-Hydroxy 26 ng/mL Low 30 - 100 ng/mL [facility] Work Phone: Comment on above: Therapy is based on measurement of Total 25-OHD with the following classification levels: Less than 20 ng/mL: Indicative of Vit D deficiency 20-30 ng/mL: Suggests Vit D insufficiency Optimal: Greater than or equal to 30 ng/mL Test performed by [employer] Competitive Immunoassay, measuring Total Vitamin D, not individual fractions. Test Performed by [facility], [address], [place], [place] [address] [facility] Work Phone: TSH without Reflexon 019 TSH Qn 3.036 u[IU]/mL 0.465 - 4.68 u[IU]/mL [facility], [place] Test Performed by [facility], [address] , [place], [place] [address] [facility], [place] MG Breast Tomosynthesis Diag nostic Righton 03-09-2019 MG Breast Tomosynthesis Diagnostic Right Patient Name: CHAY TEAGUE Mammography Exam Date/Time 03/09/2019 07:49:43 EDT Exam MG Breast Tomosynthesis Uni Ordering Physician MD URIBE DIANA Accession Number [id number] CPT4 Codes 69648 (MG Breast Tomosynthesis Right), 29999 (MG MAMMO 2D DIAGNOSTIC) Reason For Exam [...] 17, 2019, bilateral screening mammogram performed at [facility]. February 17, 2019, bilateral MG breast tomosynthesis bl scr performed at [facility]. August 18, 2017, bilateral MG breast tomosynthesis bl scr performed at [facility]. November 22, 2010, bilateral mammogram. TISSUE DENSITY: [...] images: BB's = Nipples; skin lesions Open kasaan = Palpable Line = Scar US BREAST LIMITED RIGHT: MARCH 09, 2019 - Standard views. 2D digital mammography and tomosynthesis imaging were performed and reviewed with CAD. ASSESSMENT: Category 3 Probably benign (Overall) RECOMMENDATION: Ultrasound of the right breast in 6 months. . Report Dictated on Final Signed Date and Time: 03/09/2019 8:57 am Signed by: MD TAN KERISTEN L [facility] US Breast Limited Righton US Breast Limited Right Patient Name: CHAY TEAGUE Ultrasound Exam Date/Time 03/09/2019 08:41:27 EDT Exam US Breast Limited Right Ordering Physician MD URIBE DIANA Accession Number [id number] CPT4 Codes 73732 () Reason For Exam Other abnormal and [...] 17, 2019, bilateral screening mammogram performed at [facility]. February 17, 2019, bilateral MG breast tomosynthesis bl scr performed at [facility]. August 18, 2017, bilateral MG breast tomosynthesis bl scr performed at [facility]. November 22, 2010, bilateral mammogram. TISSUE DENSITY: [...] images: BB's = Nipples; skin lesions Open kasaan = Palpable Line = Scar US BREAST LIMITED RIGHT: MARCH 09, 2019 - Standard views. 2D digital mammography and tomosynthesis imaging were performed and reviewed with CAD. ASSESSMENT: Category 3 Probably benign (Overall) RECOMMENDATION: Ultrasound of the right breast in 6 months. . Report Dictated on Final Signed Date and Time: 03/09/2019 8:57 am Signed by: MD DOMINICK, GONZALO Chung Normal [facility] Basic Metabolic Panelon 12- Anion gap molar conc 7 Normal [facility] Comment on above: Performed By: #### H EMDTodd, BMP3 #### [address] [address] [place] [address] Calcium mass conc 8.8 mg/dL Normal 8.4-10.4 [facility] Comment on above: Performed By: #### H DIALLOF, BMP3 #### [address] [address] [place] [address] CO2 molar conc 23 mmol/L Normal 22-30 [facility] Comment on above: Performed By: #### H VILLA, BMP3 #### [facility] [address] [place] [address] Creatinine mass conc 0.85 mg/dL Normal 0.52-1.25 [facility] Comment on above: Performed By: #### H VILLA, BMP3 #### [facility] [address] [place] [address] GFR/1.73 sq M predicted among blacks MDRD vol rate/area (S/P/Bld) mL/min/{1.73_m2} Normal >60 [facility] Comment on above: Performed By: #### H EMDF, BMP3 #### [facility] [address] [place] [address] GFR/1.73 sq M predicted among non-blacks MDRD vol rate/area (S/P/Bld) mL/min/{1.73_m2} Normal >60 [facility] Comment on above: Result Comment: Sour ce- MDRD equation with creatinine calibration to IDMS(NKDEP) eGFR not recommended for drug dose adjustment Performed By: #### H VILLA, BMP3 #### [facility] [address] [place] [address] Glucose mass conc 100 mg/dL Normal 70-100 [facility] Comment on above: Performed By: #### H VILLA BMP3 #### [facility] [address] [place] [address] Urea nitrogen mass conc 14 mg/dL Normal 7-20 [facility] Comment on above: Performed By: #### H VILLA BMP3 #### [facility] [address] [place] [address] Chloride molar conc 109 mmol/L High 98-107 [facility] Comment on above: Performed By: #### H VILLA BMP3 #### [facility] [address] [place] [address] Potassium molar conc 3.7 mmol/L Normal 3.5-5.1 [facility] Comment on above: Performed By: #### H VILLA BMP3 #### [facility] [address] [place] [address] Sodium molar conc 140 mmol/L Normal 135-145 [facility] Comment on above: Result Comment: NOTE : New Sodium Reference Range effective 2018 @ 10:00 Performed By: #### H VILLA BMP3 #### [address] [address] [place] [address] CR Chest Portableon 09-08-20 18 CR Chest Portable Patient Name: CHAY TEAGUE Diagnostic Radiology Exam Date/Time 09/08/2018 16:21:12 EST Exam CR Chest Portable Ordering Physician MD ANTONI, TRA Knutson Accession Number [id number] CPT4 Codes 48203 () Reason For Exam fall Report PORTABLE [...] Transcribed Date and Time: 09/08/2018 4:57 Normal [facility] CR Wrist Complete 3 Views Le fton 09-08-2018 CR Wrist Complete 3 Views Left Patient Name: CHAY TEAGUE Diagnostic Radiology Exam Date/Time 09/08/2018 16:21:12 EST Exam CR Wrist Complete 3 Views Left Ordering Physician MD ANTONI, TRA Knutson Accession Number [id number] CPT4 Codes 37852 () Reason For Exam fall, open fracture [...] Transcribed Date and Time: 09/08/2018 4:56 Normal [facility] CT Head or Brain w/o Contras ton 09-08-2018 CT Head or Brain w/o Contrast Patient Name: CHAY TEAGUE CT Exam Date/Time 09/08/2018 16:04:[address] Head or Brain w/o Contrast Ordering Physician MD CORRALES DAVID C. Accession Number [id number] CPT4 Codes 21423 () Reason For Exam fall, on anticoagulation [...] Transcribed Date and Time: 09/08/2018 4:40 Normal [facility] CT Spine Cervical w/o Contra ston 09-08-2018 CT Spine Cervical w/o Contrast Patient Name: CHAY TEAGUE CT Exam Date/Time 09/08/2018 16:05:[address] Spine Cervical w/o Contrast Ordering Physician MD CORRALES DAVID C. Accession Number [id number] CPT4 Codes 18528 () Reason For Exam C-SPINE TRAUMA, NEXUS/CCR [...] Transcribed Date and Time: 09/08/2018 4:43 Normal [facility] ED Provider Noteon 8 Protein mass conc [...] capsule by mouth daily VITAMIN D (ERGOCALCIFEROL) 73562 UNITS CAPSULE Take 1 capsule by mouth [...] ?C) Oral 78 20 97 % 5' 3" (1.6 m) 192 lb (87.1 kg) Physical [...] Weight: 87.1 kg (192 lb) Height: 5' 3" (1.6 m) Medications - No data to [...] arranged. Patient's daughter 100 be seen by [facility] in [place]. We will give her referral to Dr. [...] Provider Tra Corrales MD 09/08/18 1859 Normal [facility] Hemogram w/ Autodiffon 09-08 Abs Baso Cnt 0.1 10*3/uL Normal 0.0-0.2 [facility] Comment on above: Performed By: #### H EMDF, BMP3 #### [address] [address] [place] [address] Abs Neutrophile Cnt 5.8 10*3/uL Normal 1.8-7.0 [facility] Comment on above: Performed By: #### H EMDF, BMP3 #### [address] [address] [place] [address] Basophils/100 WBC (Bld) 0.7 % Normal 0.0-2.0 [facility] Comment on above: Performed By: #### H EMDF, BMP3 #### [address] [address] [place] [address] Eosinophils #/vol (Bld) 0.2 10*3/uL Normal 0.0-0.5 [facility] Comment on above: Performed By: #### H EMDF, BMP3 #### [facility] [address] [place] [address] Eosinophils/100 WBC (Bld) 2.3 % Normal 1.0-6.0 [facility] Comment on above: Performed By: #### H EMDF, BMP3 #### [address] [address] Erythrocyte distribution width Ratio (RBC) 14.9 % High 11.5-14.5 [facility] Comment on above: Performed By: #### H EMDF, BMP3 #### [address] [address] Granulocytes/100 WBC (Bld) 69.6 % Normal 40.0-80.0 [facility] Comment on above: Performed By: #### H EMDF, BMP3 #### [facility] [address] [place], [place] Hematocrit Volume Fraction (Bld) 41.2 % Normal 35.0-47.0 [facility] Comment on above: Performed By: #### H EMDF, BMP3 #### [address] [address] [address] [place], [place] Hemoglobin mass conc (Bld) 13.5 g/dL Normal 11.7-16.0 [facility] Comment on above: Performed By: #### H EMDF, BMP3 #### [address] [address] [place], [place] Lymphocytes #/vol (Bld) 1.7 10*3/uL Normal 1.0-4.3 [facility] Comment on above: Performed By: #### H EMDF, BMP3 #### [address] [address] [address] [place], [place] Lymphocytes/100 WBC (Bld) 20.5 % Normal 20.0-40.0 [facility] Comment on above: Performed By: #### H EMDF, BMP3 #### [address] [address] [place], [place] MCH Entitic mass (RBC) 30.8 pg Normal 26.0-34.0 [facility] Comment on above: Performed By: #### H EMDF, BMP3 #### [address] [address] [address] [place], [place] MCHC mass conc (RBC) 32.9 % Normal 32.0-36.0 [facility] Comment on above: Performed By: #### H EMDF, BMP3 #### [address] MCV Entitic volume (RBC) 93.6 fL Normal 79.0-98.0 [facility] Comment on above: Performed By: #### H EMDF, BMP3 #### [address] [address] [place], [place] Monocytes #/vol (Bld) 0.6 10*3/uL Normal 0.0-0.8 [facility] Comment on above: Performed By: #### H EMDF BMP3 #### [address] [address] [address] [place], [place] Monocytes/100 WBC (Bld) 6.9 % Normal 2.0-10.0 [facility] Comment on above: Performed By: #### H EMDF, BMP3 #### [facility] [address] [place], [place] Platelet mean volume Entitic volume (Bld) 9.0 fL Normal 7.4-10.4 [facility] Comment on above: Performed By: #### H EMDF BMP3 #### [address] [address] [place], [place] Platelets #/vol (Bld) 212 10*3/uL Normal 140-440 [facility] Comment on above: Performed By: #### H EMDF BMP3 #### [address] RBC #/vol (Bld) 4.40 10*6/uL Normal 3.80-5.20 [facility] Comment on above: Performed By: #### H EMDF BMP3 #### [address] [address] [address] [place], [place] WBC #/vol (Bld) 8.4 10*3/uL Normal 3.6-10.7 [facility] Comment on above: Performed By: #### H EMDF, BMP3 #### [address] [address] [address] [place], [place] CNCOon 09-02-2017 CNCO Letter Uri damon MD[address] [facility] [place], [place] [address]tex: [phone]: [phone]: 09/02/2017Provider: Hayley Geronimo,We have received a referral [...] you to please call our office at [phone], option 5 and we willassist you in scheduling your exam.Sincerely,Clifford Crane MD Normal [facility] Vital Signs Date Time Vital Sign Value [...] [Mass fraction] 94 % Referring Provider [facility] Work Phone: 08-29-2021 19:41-0500 Systolic blood pressure 151 mm[Hg] Referring Provider Unknown [facility] Work Phone: 11-02-2020 18:04-0500 BP Diastolic 95 mm[Hg] Jame Gombash [facility] Work Phone: 11-02-2020 18:04-0500 BP Systolic 124 mm[Hg] Jame Gombash [facility] Work Phone: 11-02-2020 18:04-0500 Pulse (Heart Rate) 102 /min Jame Kostasmbash [facility] Work Phone: 11-02-2020 18:04-0500 Pulse Oximetry 99 % Jame Kostasmbash [facility] Work Phone: 11-02-2020 15:23-0500 Body Temperature 97.39 [degF] Jame Kostasmbash [facility] Work Phone: 11-02-2020 15:23-0500 Respiratory Rate 18 /min Jame Kostasmbash [facility] Work Phone: 11-02-2020 13:38-0500 BP Diastolic 58 mm[Hg] Jame Gombash [facility] Work Phone: 11-02-2020 13:38-0500 BP Systolic 134 mm[Hg] Jame Gombash [facility] Work Phone: 11-02-2020 13:36-0500 Body Temperature 98.71 [degF] Jame Gombash [facility] Work Phone: 11-02-2020 13:36-0500 Pulse (Heart Rate) 103 /min Jame Kostasmbash [facility] Work Phone: 11-02-2020 13:36-0500 Pulse Oximetry 100 % Jame Gombash [facility] Work Phone: 11-02-2020 13:36-0500 Respiratory Rate 22 /min Jame WALTON Work Phone: 03-09-2020 08:35-0400 Pulse Oximetry 94 % Emily Reese [facility] , [place] 03-09-2020 08:26-0400 Body Temperature 97.9 [degF] Emily Dennis [facility], [place] 03-09-2020 08:26-0400 BP Diastolic 90 mm[Hg] Emily Reese [place], [place] 03-09-2020 08:26-0400 BP Systolic 146 mm[Hg] Emily Reese [facility] , [place] 03-09-2020 08:26-0400 Pulse (Heart Rate) 90 /min Emily Reese [place], [place] 03-09-2020 08:26-0400 Respiratory Rate 18 /min Emily Reese [place], [place] 03-06-2020 17:21-0400 BMI (Body Mass Index) 35.43 kg/m2 Emily Reese [place], [place] 03-06-2020 17:21-0400 Body weight 90.72 kg Emily Reese [place], [place] Comment on above: per 08/2019 office visit 03-06-2020 17:21-0400 Height 160 cm Emily Reese [place], [place] Comment on above: per 08/2019 office visit 01-22-2020 14:28-0400 Body Temperature 97.4 [degF] Scott Bernsteinrio [facility] Work Phone: 01-22-2020 14:28-0400 BP Diastolic 78 mm[Hg] Scott Bernsteinrio [facility] Work Phone: 01-22-2020 14:28-0400 BP Systolic 126 mm[Hg] Scott Bernsteinrio [facility] Work Phone: 01-22-2020 14:28-0400 Pulse (Heart Rate) 86 /min Scott Bernsteinrio [facility] Work Phone: 01-22-2020 14:28-0400 Pulse Oximetry 95 % Scott Jimenez [facility] Work Phone: 01-22-2020 14:28-0400 Respiratory Rate 32 /min Scott Jimenez [facility] Work Phone: Encounters Encounter Date Encounter Type Care Provider Facility Start: 04-08-2025 ambulatory Saurabh MANJARREZ Facili ty:[facility] Start: 03-03-2025 ambulatory Saurabh MANJARREZ Facili ty:[facility] Start: 02-16-2025 ambulatory Saurabh MANJARREZ Facili ty:[facility] Start: 12-09-2024 End: 12-09-2024 ambulatory Saurabh Fernandez MD [facility] Work Phone: Start: 12-09-2024 End: 12-09-2024 Departed Referred [facility]h [facility] Start: 12-09-2024 Registered Referred Saurabh Fernandez [facility] Start: 12-09-2024 End: 12-09-2024 ambulatory Saurabh MANJARREZ Facility:[facility] Start: 11-22-2024 End: 11-22-2024 ambulatory Saurabh Fernandez MD [facility] Work Phone: Start: 11-22-2024 End: 11-22-2024 Departed Referred Saurabh Fernandez [facility] Start: 11-22-2024 Registered Referred Saurabh Fernandez [facility] Start: 11-22-2024 End: 11-22-2024 ambulatory Saurabh MANJARREZ Facility:[facility] Start: 11-17-2024 End: 11-17-2024 ambulatory Saurabh Fernandez MD [facility] Work Phone: Start: 11-17-2024 End: 11-17-2024 Departed Referred Saurabh Fernandez [facility] Start: 11-17-2024 End: 11-17-2024 ambulatory Saurabh MANJARREZ Facility:[facility] Start: 11-10-2024 ambulatory Saurabh MANJARREZ Facili ty:[facility] Start: 11-10-2024 Registered [facility] Start: 09-16-2024 ambulatory Saurabh MANJARREZ Facili ty:[facility] Start: 09-16-2024 Registered Ref[facility] Start: 08-30-2024 End: 08-30-2024 Departed Referred [facility] Start: 08-30-2024 End: 08-30-2024 ambulatory Saurabh MANJARREZ Facility:[facility] Start: 08-09-2024 End: 08-09-2024 ambulatory Saurabh MANJARREZ Facility:[facility] Start: 06-25-2024 End: 06-25-2024 ambulatory Saurabh MANJARREZ Facility:[facility] Start: 06-24-2024 End: 06-24-2024 ambulatory Saurabh MANJARREZ Facility:[facility] Start: 06-07-2024 End: 06-07-2024 ambulatory Saurabh MANJARREZ Facility:[facility] Start: 10-16-2023 End: 10-16-2023 ambulatory [facility] Work Phone: Start: 10-16-2023 End: 10-16-2023 Departed Referred [facility] Start: 09-29-2023 End: 09-29-2023 ambulatory [facility] Work Phone: Start: 09-29-2023 End: 09-29-2023 Departed Referred [facility] Start: 09-01-2023 End: 09-01-2023 ambulatory [facility] Work Phone: Start: 09-01-2023 End: 09-01-2023 Departed Referred [facility] Start: 07-24-2023 End: 07-24-2023 ambulatory [facility] Work Phone: Start: 07-24-2023 End: 07-24-2023 Departed Referred [facility] Start: 06-30-2023 End: 06-30-2023 ambulatory [facility] Work Phone: Start: 06-30-2023 End: 06-30-2023 Departed Referred [facility] Start: 05-01-2023 End: 05-01-2023 ambulatory [facility] Work Phone: Start: 05-01-2023 End: 05-01-2023 Departed Referred [facility] Start: 04-07-2023 End: 04-07-2023 ambulatory [facility] Work Phone: Start: 04-07-2023 End: 04-07-2023 Departed Referred [facility] Start: 02-06-2023 End: 02-06-2023 Departed Referred [facility] Start: 01-13-2023 End: 01-13-2023 ambulatory [facility] Work Phone: Start: 01-13-2023 End: 01-13-2023 Departed Referred [facility] Start: 11-14-2022 End: 11-14-2022 ambulatory [facility] Work Phone: Start: 11-14-2022 End: 11-14-2022 Departed Referred [facility] Start: 11-14-2022 Registered Referred [facility] Start: 10-21-2022 End: 10-21-2022 ambulatory [facility] Work Phone: Start: 10-21-2022 End: 10-21-2022 Departed Referred [facility] Start: 08-23-2022 End: 08-23-2022 ambulatory [facility] Work Phone: Start: 08-23-2022 End: 08-23-2022 Departed [facility]erred [facility] [facility] Start: 08-23-2022 Registered Referred [facility] Start: 08-22-2022 End: 08-22-2022 ambulatory [facility] Work Phone: Start: 08-22-2022 End: 08-22-2022 Departed Referred [facility] Start: 08-22-2022 Registered Referred [facility] Start: 07-29-2022 End: 07-29-2022 ambulatory [facility] Work Phone: Start: 07-29-2022 End: 07-29-2022 Departed Referred [facility] Start: 07-29-2022 Registered Referred [facility] Start: 07-24-2022 End: 07-24-2022 ambulatory [facility] Work Phone: Start: 07-24-2022 End: 07-24-2022 Departed Referred [facility] Start: 06-06-2022 End: 06-24-2022 Evaluation and management of inpatient [facility] Facility:[facility] Start: 06-05-2022 End: 06-06-2022 Emergency department patient visit CYNTHIA URIBE Facility:[facility] Start: 06-05-2022 Admission to establishment Mundo Bailey [employer]CH T[employer]OR Work Phone: [facility] Start: 06-05-2022 ambulatory Mundo conley [facility] Work Phone: Behavioral Health Intake Comment on above: Psychiatric Problem Start: 08-30-2021 Chart Update Referring Prov ider Unknown [facility] Work Phone: Start: 08-29-2021 Office outpatient vi sit 15 minutes Referring Provider Unknown [facility] Work Phone: Start: 05-10-2021 End: 05-10-2021 Subsequent hospital visit by physician Cynthia Uribe MD Work Phone: [facility] Comment on above: Vitamin D deficiency ; Recurrent depression (HCC); Essential hypertension; Other specified hypothyroidism; Mild intermittent asthma without complication Start: 11-02-2020 End: 11-02-2020 Emergency department patient visit Jame Best Work Phone: [facility] ED Comment on above: Altered mental statu s, unspecified altered mental status type (Primary Dx); Shortness of breath; Lower extremity edema; Abdominal pain, right lower quadrant; Gallstones Start: 03-06-2020 End: 03-09-2020 Evaluation and management of inpatient Emily Reese Work Phone: [facility] Comment on above: Delirium (Primary Dx ); Urinary tract infection without hematuria, site unspecified Start: 08-31-2019 End: 08-31-2019 Subsequent hospital visit by physician Cynthia Uribe MD Work Phone: [facility] Laboratory Comment on above: Vitamin D deficiency ; Other specified hypothyroidism Start: 05-18-2019 End: 05-18-2019 Subsequent hospital visit by physician Cynthia Uribe Work Phone: [facility] Laboratory Comment on above: Other specified hypo thyroidism Procedures Date Procedure Procedure Detail Performing Clinician Start: 05-10-2021 Comprehensive metabo lic panel Cynthia Uribe MD Work Phone: Start: 05-10-2021 Hepatitis c antibody Gladys Uribe MD Work Phone: Start: 11-02-2020 CT Abdomen and Pelvi s W contrast IV Jame Farfan [employer] Work Phone: Start: 11-02-2020 Ct angiography chest w/contrast/noncontrast Jame Farfan [employer] Work Phone: Start: 11-02-2020 Ct head/brain w/o co ntrast material Jame A [employer] Work Phone: Start: 11-02-2020 Assay of lactate Jame A [employer] Work Phone: Start: 11-02-2020 Assay of troponin quantitative Jame A [employer] Work Phone: Start: 11-02-2020 Blood count complete auto&auto difrntl wbc Jame Farfan [employer] Work Phone: Start: 11-02-2020 Comprehensive metabo lic panel Jame Farfan [employer] Work Phone: Start: 11-02-2020 COVID-19, RAPID Jame Farfan [employer] Work Phone: Start: 11-02-2020 Natriuretic peptide Stone Farfan [employer] Work Phone: Start: 11-02-2020 Prothrombin time Jame Farfan [employer] Work Phone: Start: 11-02-2020 Ecg routine ecg w/le ast 12 lds w/i&r Jame Farfan [employer] Work Phone: Start: 03-07-2020 Mri brain brain [...] Start: 03-07-2020 Blood count complete automated Delia Chavez Work Phone: Start: 03-07-2020 Cyanocobalamin vitamin b-12 Delia Chavez Work Phone: Start: 03-07-2020 Hemoglobin glycosylated a1c Delia Chavez Work Phone: Start: 03-07-2020 Lipid panel eDlia Chavez Work Phone: Start: 03-06-2020 Radiologic exam abdo men 1 view Cain Bernardino Work Phone: Start: 03-06-2020 Assay of ammonia Merrick Chavez Work Phone: Start: 03-06-2020 Assay of troponin quantitative Delia Chavez Work Phone: Start: 03-06-2020 Speech and language therapy regime Delia Chavez Work Phone: Start: 03-06-2020 ADD ON LAB TEST Emily Reese Work Phone: Start: 03-06-2020 Ct head/brain w/o co ntrast material Emily Reese Work Phone: Start: 03-06-2020 Radiologic exam ches t single view Emily Reese Work Phone: Start: 03-06-2020 Culture bacterial bl ood aerobic w/id isolates Emily Reese Work Phone: Start: 03-06-2020 CULTURE, BLOOD 1 Jeremy Reese Work Phone: Start: 03-06-2020 Assay of lactate Jeermy Reese Work Phone: Start: 03-06-2020 Assay of [...] Author Start: 06-05-2025 DIABETES SCREEN DIABETES SCREEN [facility] Start: 05-23-2022 Influenza vaccination [facility]FLUENZA (#1) [facility] Start: 05-10-2022 Creatinine measurement Creatinine mo nitoring [facility] Work Phone: Start: 05-10-2022 Potassium monitoring Potassium monit oring [facility] Work Phone: Start: 11-02-2021 Creatinine measurement Creatinine mo nitoring [facility] Work Phone: Start: 11-02-2021 Potassium monitoring Potassium monit oring [facility] Work Phone: Start: 09-22-2021 ADVANCE DIRECTIVE DISCUSSION ADVANCE DIRECTIVE DISCUSSION [facility] Start: 09-10-2021 End: 09-10-2021 Telemedicine consultation with patient 09/10/2021 Telemedicine Family Medicine Cynthia Uribe MD [address] [place] [address] [phone] [facility] Start: 05-23-2021 Influenza vaccination Flu vaccine (# 1) [facility] Work Phone: Start: 03-07-2021 Creatinine measurement Creatinine mo nitoring [place], [place] Start: 03-07-2021 Potassium monitoring Potassium monit [place], [place] Start: 08-31-2020 Creatinine monitoring [facility] Work Phone: Start: 08-31-2020 [facility] Start: 05-23-2020 Influenza vaccination Flu vacc ine (Season Ended) [place], [place] Start: 11-09-2019 Creatinine monitoring Creatinine mon [place], [place] Start: 11-09-2019 Potassium monitoring Potassium monit [place], [place] Start: 05-23-2019 Influenza vaccination Flu vaccine (# 1) [place] Start: 03-09-2019 Annual Wellness Visi t (AWV) Annual Wellness Visit (AWV) [facility] Work Phone: Start: 2008 BONE DENSITY BONE DENSITY [facility] Start: 2008 DEXA (modify frequen cy per FRAX score) DEXA (modify frequency per FRAX score) [place], [place] Start: 2008 PNEUMOCOCCAL: 65+ (1 - PCV) PNEUMOCOCCAL: 65+ (1 - PCV) [facility] Start: 2006 Annual Wellness Visi t (AWV) Annual Wellness Visit (AWV) [place] Start: 1998 Screening for osteoporosis DEXA (modify frequency per FRAX score) [place] Start: 1993 Shingles Vaccine (1 of 2) Shingles Vaccine (1 of 2) [place] Start: 1993 SHINGRIX VACCINE (1 of 2) SHINGRIX VACCINE (1 of 2) [facility] Start: 1962 DTaP/Tdap/Td vaccine (1 - Tdap) DTaP/Tdap/Td vaccine (1 - Tdap) [place] Start: 1962 Urine microalbumin profile DTAP,TDAP,TD (1 - Tdap) [facility] Start: 1959 COVID-19 Vaccine (1 of 2) COVID-19 Vaccine (1 of 2) [facility] Work Phone: Start: 1954 DTaP/Tdap/Td vaccine (1 - Tdap) DTaP/Tdap/Td vaccine (1 - Tdap) [facility] Work Phone: Start: 1943 Hepatitis C screening Hepatitis C sc reen [facility] Work Phone: End: 11-02-2020 Brain Natriuretic Peptide [facility] Work Phone: Comment on above: One Time for 1 Occur rences starting 11/02/2020 until 11/02/2020 End: 11-02-2020 Comprehensive metabolic 2000 panel Comprehensive Metabolic Panel Lab STAT One Time for 1 Occurrences starting 11/02/2020 until 11/02/2020 [facility] Work Phone: Comment on above: One Time for 1 Occur rences starting 11/02/2020 until 11/02/2020 End: 11-02-2020 CT Abdomen and Pelvis W contrast IV CT Abdomen Pelvis W Contrast Imaging STAT Once for 1 Occurrences starting 11/02/2020 until 11/02/2020 [facility] Work Phone: Comment on above: Once for 1 Occurrenc es starting 11/02/2020 until 11/02/2020 End: 11-02-2020 CTA Chest W WO (PE study) CTA Chest W WO (PE study) Imaging STAT Once for 1 Occurrences starting 11/02/2020 until 11/02/2020 [facility] Work Phone: Comment on above: Once for 1 Occurrenc es starting 11/02/2020 until 11/02/2020 Culture, Blood [facility] [place] [place] End: 11-02-2020 Culture, Blood 1 Culture, Blood 1 Microbiology STAT One Time for 1 Occurrences starting 11/02/2020 until 11/02/2020 [facility] Work Phone: Comment on above: One Time for 1 Occur rences starting 11/02/2020 until 11/02/2020 Culture, Blood 2 [facility] [place] [place] End: 11-02-2020 Culture, Blood 2 Culture, Blood 2 Microbiology STAT One Time for 1 Occurrences starting 11/02/2020 until 11/02/2020 [facility] Work Phone: Comment on above: One Time for 1 Occur rences starting 11/02/2020 until 11/02/2020 EKG 12 Lead - Chest Pain EKG 12 Lead - Chest Pain ECG STAT 11/02/2020 1:34 PM EST [facility] Work Phone: End: 11-02-2020 Hemogram (CBC) w/Auto Diff Hemogram (CBC) w/Auto Diff Lab STAT One Time for 1 Occurrences starting 11/02/2020 until 11/02/2020 [facility] Work Phone: Comment on above: One Time for 1 Occur rences starting 11/02/2020 until 11/02/2020 Initiate Oxygen Ther apy Protocol Initiate Oxygen Therapy Protocol Respiratory Care Routine Daily until discontinued starting 03/06/2020 [facility], [place] Comment on above: Daily until disconti nued starting 03/06/2020 End: 11-02-2020 Lactic Acid, Plasma [facility] Work Phone: Comment on above: One Time for 1 Occur rences starting 11/02/2020 until 11/02/2020 End: 11-02-2020 Miscellaneous Sendout 1 [facility] Work Phone: Comment on above: One Time for 1 Occur rences starting 11/02/2020 until 11/02/2020 End: 11-02-2020 Protime-INR [facility] Work Phone: Comment on above: One [...] adults) Microbiology STAT 11/02/2020 3:33 PM EST [facility] Work Phone: End: 11-02-2020 Troponin x1 [facility] [...] 08-31-2020 influenza, high dose seasonal, preservative-free Jame Best [facility] Work Phone: 06-16-2018 influenza, high dose seasonal, preservative-free [facility] [place] [place] 08-07-2017 influenza, high dose seasonal, preservative-free Cynthia [facility], [place] 03-26-2017 pneumococcal polysaccharide vaccine, 23 valent Cynthia [facility], [place] 11-11-2016 pneumococcal conjuga te vaccine, 13 valent [facility], [place] 10-16-2016 influenza, high dose seasonal, preservative-free Cynthia Uribe MD Work Phone: [facility] Work Phone: Payers Date Payer Category Payer Self-pay 2021 Medicaid [place] [employer] [facility] MEDICAID [id number] 2021-Present [phone] [place] [id number] Medicaid [id number] 2021 Medicare [place] MEDIC[employer] [facility] MEDICARE [id number] 2021-Present [phone] [address] [place] [address] Medicare [id number] 2021 Medicare [id number] 2021 Unknown [id number] 2017 Unknown [employer] C[employer] SUPP xxxxxxxxxxxx 2017-Present [address] [place] [address] xxxxxxxxxxxx [id number] 2017 Unknown [employer] SUPP [id number] 2017-Present [address] [place] [address] [id number] 2014 Medicare MEDICARE MEDICAR E PART A AND B xxxxxxxxxxx 2014-Present [phone] [place] [address] xxxxxxxxxxx [id number] 2014 Medicare [id number] Unknown Unknown [id number] Unknown [id number] Unknown [id number] Unknown [id number] Unknown [id number] Unknown [id number] Unknown [id number] Unknown [id number] Unknown [id number] Unknown [id number] Unknown [id number] Unknown [id number] Unknown [id number] Unknown [id number] Social History Date Type Detail Facility Start: 08-31-2019 End: 03-07-2020 Tobacco smoking status NHIS Former smoker [place], [place] End: 09-22-1984 History of tobacco use Current smoker [place] End: 09-22-1984 History of tobacco use Cigarette Smoker [place] Start: 08-31-2019 End: 03-07-2020 Alcohol intake Current non-drinker of alcohol (finding) [facility] Work Phone: Start: 1945 Sex Assigned At Not on file [place] Start: 11-02-2020 End: 05-10-2021 Tobacco use and exposure Never used [facility] Work Phone: Start: 05-26-2022 End: 06-05-2022 Exposure to SARS-CoV-2 (event) Not sure [facility] Work Phone: Start: 11-09-2018 Alcohol intake No [place], [place] Former smoker Former smoker [facility] Work Phone: Start: 06-05-2022 Tobacco smoking status WAIS Tobacco smoking consumption unknown [facility] Start: 1945 Sex Assigned At Female [facility] Start: 12-23-2024 End: 12-23-2024 Sex Female (finding) [facility] NEGATED: Highlighted row - - [facility] Work Phone: Goals Date Patient Goal Desired [...] status health issues are not documented Disease [facility] Work Phone: Mental Status Date Assessment Result Facility NEGATED: Highlighted row Cognitive function [Interpretation] Cognitive status health issues are not documented Disease [facility] Work Phone: Clinical Notes 08-28-2021 to 06-24-2022 [facility] Intake - JACINTO Castro - 06/05/2022 11:39 PM EDT Note Date & Type Note Facility 06-24-2022 Note HNO ID: [id number] Author: LATRICE Munoz Service: Social Work Author Type: Tool Turret Lathe Set Up Operator Type: Plan of Care Filed: 06/24/2022 1:44 [...] 06/28/22 Progress Towards Short Term Goals: Progressing Clinical Informatics Manager Goals: Patient will have improved insight into illness;Patient will have achieved optimal level of functioning;Patient will verbalize benefits of compliance with medication and treatment after discharge Target Date Mcc Goals: 07/01/22 Progress Towards Mcc Goals: Progressing Interventions - Nursing: Offer frequent [...] for self Date Initiated: 06/06/22 Time Initiated: 0510 Mood Disorder: Depression Short Term Goals: Patient will report decrease in identified symptoms;Patient will report decrease in suicidal ideation/self-harm behavior;Patient will identify alternative coping skills to deal with symptoms Target Date Short Term Goals: 06/27/22 Progress Towards Short Term Goals: Progressing Mcc Goals: Patient will demonstrate optimal level of functioning;Patient/support system will verbalize intent to comply with medication and treatment after discharge;Patient expresses examples of optimism and hope for the future Target Date Mcc Goals: 06/29/22 Progress Towards Clinical Informatics Manager Goals: Progressing Interventions - Nursing: Obtain baseline [...] self-reflection to build insig (more content not included)..[facility] 06-24-2022 Note HNO ID: [id number] Author: Robyn Roman RN Service: Psychiatry Author [...] 06/26/22 Progress Towards Short Term Goals: Progressing Clinical Informatics Manager Goals: Patient will have improved insight into illness;Patient will have achieved optimal level of functioning;Patient will verbalize benefits of compliance with medication and treatment after discharge;Patient will participate in cognitive, physical and social activities;Patient will display nonviolent behavior towards others, with aid of medication and supportive therapy Target Date Clinical Informatics Manager Goals: 06/28/22 Progress Towards Clinical Informatics Manager Goals: Progressing Interventions - Nursing: Offer frequent [...] grounding techniques and (more content not included)... [facility] 06-24-2022 Note HNO ID: [id number] Author: John Penny MD Service: Psychiatry Author [...] IM 0.5mg given for anxiety at this time." 2221: She was restless at this time screaming for help. She was not able to follow redirection. Medicated with Ativan 0.5 mg PO. Will continue to monitor." Scarlett Snider Tool Turret Lathe Set Up Operator most recent and updated notes is reviewed. [...] ?F) Resp 16 Ht 155 cm (5' 1.02") Wt 82.1 kg (181 lb) SpO2 93% [...] Date Value 05/23 (more content not included)... [facility] 06-23-2022 Note HNO ID: [id number] Author: Trisha Mcgill MD Service: Psychiatry Author [...] ?F) Resp 16 Ht 155 cm (5' 1.02") Wt 82.1 kg (181 lb) SpO2 93% [...] mg tab(s) (ZyPREXA) 5 mg ORAL BID /5p DATA: Diagnostic tests reviewed for today's visit: [...] DATE: June 23, 2022 TIME: 8:22 PM [facility] 06-21-2022 Note HNO ID: [id number] Author: Trisha Mcgill MD Service: Psychiatry Author [...] (Oral) Resp 20 Ht 155 cm (5' 1.02") Wt 82.1 kg (181 lb) SpO2 99% [...] DATE: June 21, 2022 TIME: 9:24 PM [facility] 06-21-2022 Note HNO ID: [id number] Author: Teo López RN Service: Behavioral Health [...] 06/26/22 Progress Towards Short Term Goals: Progressing Clinical Informatics Manager Goals: Patient will have improved insight into illness;Patient will have achieved optimal level of functioning;Patient will verbalize benefits of compliance with medication and treatment after discharge;Patient will participate in cognitive, physical and social activities;Patient will display nonviolent behavior towards others, with aid of medication and supportive therapy Target Date Clinical Informatics Manager Goals: 06/28/22 Progress Towards Mcc Goals: Progressing Interventions - Nursing: Offer frequent [...] activities to ch (more content not included)... [facility] 06-19-2022 Note HNO ID: [id number] Author: Trisha Mcgill MD Service: Psychiatry Author [...] (Oral) Resp 18 Ht 155 cm (5' 1.02") Wt 82.1 kg (181 lb) SpO2 99% [...] DATE: June 19, 2022 TIME: 11:54 PM [facility] 06-19-2022 Note HNO ID: [id number] Author: Teo López RN Service: Behavioral Health [...] 06/26/22 Progress Towards Short Term Goals: Progressing Mcc Goals: Patient will have improved insight into illness;Patient will have achieved optimal level of functioning;Patient will participate in cognitive, physical and social activities;Patient will display nonviolent behavior towards others, with aid of medication and supportive therapy;Patient will verbalize benefits of compliance with medication and treatment after discharge Target Date Mcc Goals: 06/28/22 Progress Towards Mcc Goals: Progressing Interventions - Nursing: Offer frequent [...] promote grounding techniques (more content not included)... [facility] 06-17-2022 Note HNO ID: [id number] Author: Trisha Mcgill MD Service: Psychiatry Author [...] ?F) Resp 18 Ht 155 cm (5' 1.02") Wt 82.1 kg (181 lb) SpO2 94% [...] MD PATIENT NAME: Chay Teague DATE: June 17, 2022 TIME: 11:51 PM [facility] 06-17-2022 Note HNO ID: [id number] Author: Melisa Peña RN Service: Behavioral Health [...] 06/17/22 Progress Towards Short Term Goals: Progressing Mcc Goals: Patient will have improved insight into illness;Patient will have achieved optimal level of functioning;Patient will verbalize benefits of compliance with medication and treatment after discharge;Patient will participate in cognitive, physical and social activities Target Date Mcc Goals: 06/19/22 Progress Towards Mcc Goals: Progressing Interventions - Nursing: Offer frequent [...] as needed;Offer constructive (more content not included)... [facility] 06-15-2022 Note HNO ID: [id number] Author: Trisha Mcgill MD Service: Psychiatry Author Type: Physician Type: Progress Notes Filed: 06/16/2022 12:00 AM Note Text: PROGRESS NOTE BEHAVIORAL HEALTH SERVICE DATE: 06/15/2022 SERVICE TIME: 1545 The Interdisciplinary team met and reviewed treatment goals and discharge planning. Subjective This patient is very restless and quietly agitated. She keeps asking staff for help for no apparent reason, will express fear or tap on the table repeatedly. Objective PHYSICAL EXAM: BP 132/56 Pulse 91 Temp 36.2 ?C (97.2 ?F) (Oral) Resp 17 Ht 155 cm (5' 1.02") Wt 82.1 kg (181 lb) SpO2 97% [...] mg tab(s) (ZyPREXA) 2.5 mg ORAL BID / DATA: Diagnostic tests reviewed for today's visit: [...] DATE: June 15, 2022 TIME: 11:54 PM [facility] 06-14-2022 Note HNO ID: [id number] Author: John Penny MD Service: Psychiatry Author Type: Physician Type: Progress Notes Filed: 06/14/2022 7:16 AM Note Text: INPATIENT PROGRESS NOTE PSYCHIATRY PATIENT: Chay Teague DATE OF SERVICE: June 14, 2022 The Interdisciplinary team met and reviewed treatment goals and discharge planning CHEIF COMPLANT: Seen in room Confused No PRNs Improved sleep 1-HPI: Patient is compliant with medications No adverse reactions to medications Sleep is good 7 hrs Appetite is good Nursing staff updated notes is reviewed. She was very confused oriented to self only. She always say "Am I good?" She took her medications whole with pudding. " [facility] Tool Turret Lathe Set Up Operator most recent and updated notes is reviewed. Pt sleep remains poor, during the day she is visible on unit but confused. She frequently slaps table with open palm and calls out for help for no obvious reason. Pt continues to appear somewhat guarded and distrusting of everyone except on of her daughters. Daughter was able to complete enrollment for [facility] dual advantage, effective date 06/22/22. SW to update facility and determine particulars of admission policy regarding future coverage. " Medical comorbidity is reviewed REVIEW OF SYSTEMS: [...] ?F) Resp 18 Ht 155 cm (5' 1.02") Wt 82.1 kg (181 lb) SpO2 97% [...] of which s (more content not included)... [facility] 06-13-2022 Note HNO ID: [id number] Author: John Penny MD Service: Psychiatry Author [...] times, yelling and hitting table and stated " take me take me". Patient able to direct. , nonsensical speech." [employer] [facility] Tool Turret Lathe Set Up Operator most recent and updated notes is reviewed. ASHLEY faxed clinicals to [facility]. nutritional services director informed SW that they are not in network with [employer] and only have [facility]. ASHLEY called Pt's daughter to update and she states that she will apply for [employer] and that [facility] remain their first FOC." Medical comorbidity is reviewed REVIEW OF SYSTEMS: [...] (Oral) Resp 18 Ht 155 cm (5' 1.02") Wt 82.1 kg (181 lb) SpO2 96% [...] spend in counseling (more content not included)... [facility] 06-12-2022 Note HNO ID: [id number] Author: Iva Bailey RN Service: Behavioral Health [...] 06/17/22 Progress Towards Short Term Goals: Progressing Mcc Goals: Patient will have improved insight into illness;Patient will have achieved optimal level of functioning;Patient will verbalize benefits of compliance with medication and treatment after discharge;Patient will participate in cognitive, physical and social activities Target Date Mcc Goals: 06/19/22 Progress Towards Clinical Informatics Manager Goals: Progressing Interventions - Nursing: Offer frequent [...] schedule and encou (more content not included)... [facility] 06-12-2022 Note HNO ID: [id number] Author: John Penny MD Service: Psychiatry Author [...] random yelling this morning while in day area." P [facility] Tool Turret Lathe Set Up Operator most recent and updated notes is reviewed. ASHLEY received return call from Estephania in admissions at [facility]. She states that Pt would be coming LTC and would need a PAS (ASHLEY submitted for one and received favorable determination). She provided fax: [phone] for clinical information and her work cell for updates: [phone]. ASHLEY to send updated information. " Medical comorbidity is reviewed Latest Reference Range [...] (Oral) Resp 18 Ht 155 cm (5' 1.02") Wt 82.1 kg (181 lb) SpO2 95% [...] spend in c (more content not included)... [facility] 06-11-2022 Note HNO ID: [id number] Author: John Penny MD Service: Psychiatry Author [...] at times, observed patting other Patient's knee. Offset Lithographic Press Operator redirected Patient and educated on appropriate behavior. Patient cooperative with teaching. Med compliant whole in applesauce, but did spit out Colace gel capsule several times due to confusion." P Krystal F S H Tool Turret Lathe Set Up Operator most recent and updated notes is reviewed. ASHLEY placed call to [facility] admission department. SW informed admission director was on other line but was able to leave detailed message for her, requesting confirmation that they have ECF services (as opposed to assisted living or SNF) as well as to confirm a fax number to which to send clinical updates prior to discharge. " Medical comorbidity is reviewed REVIEW OF SYSTEMS: [...] (Oral) Resp 20 Ht 155 cm (5' 1.02") Wt 82.1 kg (181 lb) SpO2 95% [...] of which s (more content not included)... [facility] 06-10-2022 Note HNO ID: [id number] Author: Melisa Peña RN Service: Behavioral Health [...] 06/10/22 Progress Towards Short Term Goals: Progressing Clinical Informatics Manager Goals: Patient will have improved insight into illness;Patient will have achieved optimal level of functioning;Patient will verbalize benefits of compliance with medication and treatment after discharge;Patient will participate in cognitive, physical and social activities;Patient will display nonviolent behavior towards others, with aid of medication and supportive therapy Target Date Clinical Informatics Manager Goals: 06/14/22 Progress Towards Mcc Goals: Progressing Interventions - Nursing: Offer frequent [...] 06/06/22 Time Initiat (more content not included)... [facility] 06-10-2022 Note HNO ID: [id number] Author: John Penny MD Service: Psychiatry Author [...] redirected Ativan PO PRN given with good results." P Krystal Bernal H Tool Turret Lathe Set Up Operator most recent and updated notes is reviewed. [...] (Oral) Resp 16 Ht 155 cm (5' 1.02") Wt 82.1 kg (181 lb) SpO2 99% [...] FROM THE CHART OR MODIFY PRINTED COPY. [facility] 06-09-2022 Note HNO ID: [id number] Author: Beba Bray MD Service: ? Author [...] DATE: June 09, 2022 TIME: 1:07 PM [facility] 06-09-2022 Note HNO ID: [id number] Author: John Penny MD Service: Psychiatry Author [...] -pleasantly confused P M F S H Tool Turret Lathe Set Up Operator most recent and updated notes is reviewed. [...] ?F) Resp 17 Ht 155 cm (5' 1.02") Wt 82.1 kg (181 lb) SpO2 92% [...] FROM THE CHART OR MODIFY PRINTED COPY. [facility] 06-09-2022 Note HNO ID: [id number] Author: Interface Note Service: ? Author Type: ? Type: Progress Notes Filed: 06/09/2022 1:02 PM Note Text: Epic Scheduled Downtime: 06/09/2022 1:00:00 AM to 06/09/2022 2:07:00 AM [facility] 06-08-2022 Note HNO ID: [id number] Author: Beba Bray MD Service: ? Author [...] DATE: June 08, 2022 TIME: 12:08 PM [facility] 06-08-2022 Note HNO ID: [id number] Author: John Penny MD Service: Psychiatry Author [...] of her HS medications given crushed in applesauce" P M F S H Tool Turret Lathe Set Up Operator most recent and updated notes is reviewed. Pt discussed in treatment team and observed on unit. Pt does appear more alert and organized than on previous day. She will remain inpatient through the weekend. SW to submit PAS on Friday (06/10/22) and follow units with [facility] with updated clinical information" Medical comorbidity is reviewed REVIEW OF SYSTEMS: [...] ?F) Resp 16 Ht 155 cm (5' 1.02") Wt 82.1 kg (181 lb) SpO2 95% [...] FROM THE CHART OR MODIFY PRINTED COPY. [facility] 06-08-2022 Note HNO ID: [id number] Author: Interface Note Service: ? Author Type: ? Type: Progress Notes Filed: 06/08/2022 3:51 AM Note Text: Epic Scheduled Downtime: 06/08/2022 1:00:00 AM to 06/08/2022 3:36:00 AM [facility] 06-07-2022 Note HNO ID: [id number] Author: Teo López RN Service: Behavioral Health [...] 06/10/22 Progress Towards Short Term Goals: Progressing Mcc Goals: Patient will have improved insight into illness;Patient will have achieved optimal level of functioning;Patient will verbalize benefits of compliance with medication and treatment after discharge;Patient will participate in cognitive, physical and social activities;Patient will display nonviolent behavior towards others, with aid of medication and supportive therapy Target Date Clinical Informatics Manager Goals: 06/14/22 Progress Towards Mcc Goals: Progressing Interventions - Nursing: Offer frequent [...] Mood Disorder As (more content not included)... [facility] 06-07-2022 Note HNO ID: [id number] Author: John Penny MD Service: Psychiatry Author Type: Physician Type: Progress Notes Filed: 06/07/2022 7:19 AM Note Text: INPATIENT PROGRESS NOTE PSYCHIATRY PATIENT: Chay Teauge DATE OF SERVICE: June 07, 2022 The [...] she is in the hospital and states, "I gotta get out of here." Took all medications crushed in applesauce and tolerated flu vaccine. Coarse tremors noted. 2 assist needed for incontinence care. Will continue to monitor. 1730- Pt continues to be confused throughout the shift. 2 assist needed for incontinence care throughout the day. Very weak with tremors, thus has difficulty standing and unable to walk. States, "I don't know," multiple times throughout the day. D/C focused. RN attempted to assist pt eating. Poor appetite- refused to eat all meals. " Scarlett Snider Tool Turret Lathe Set Up Operator most recent and updated notes is reviewed. Daughter states that Pt has not responded well to Haldol in the past. She states that Pt was on waitlist for [facility] but following this episode they are willing to take her once stabilized. Daughter is agreeable to SW reaching out and sharing clinical information with ECF as needed. SW to follow with continued collateral contact and discharge planning as Pt's mental status improves. SW to submit PAS and send [facility] clinical updates once Pt is stabilized." Medical comorbidity is reviewed REVIEW OF SYSTEMS: [...] (Oral) Resp 18 Ht 155 cm (5' 1.02") Wt 82.1 kg (181 lb) SpO2 94% [...] frontal lobe dementi (more content not included)... [facility] 06-06-2022 Note HNO ID: [id number] Author: John Penny MD Service: Psychiatry Author Type: Physician Type: Progress Notes Filed: 06/06/2022 7:00 AM Note Text: HANDP dictated # [id number] JOHN PENNY MD 06/06/2022 [facility] 06-05-2022 Miscellaneous Notes BEHAVIORAL HEALTH INTAKE NOTE SERVICE DATE: 06/06/2022 SERVICE TIME: 12:08AM Nature of the crisis: Confusion Presenting Problem: Chay Teague is a 77 year old female brought in to [facility] from Home by family for confusion. [...] not steal the car back for her. Offset Lithographic Press Operator attempted interview with pt telephonically. It was noted by ED RN Liz that pt did not have her dentures in nor her hearing aide in to assist. Pt is noted to be panting and moaning, making sounds but not forming full words. Pt was not able to participate in conversation and and was not responsive to "yes" or "no" questions. ED RN reported, upon arrival, that pt was also not participating in conversation and not answering "yes" or "no" questions either, but was saying repeatedly, "I don't know, I don't know." Pt is not linked with a psychiatrist. Pt does not have any hx/o psychiatric admissions. There are no reported concerns for SI/HI/SIB. Collateral information obtained from pt's daughter, Jennifer Hidalgo ([phone]). Daughter reports that pt has underlying dementia, [...] with pt being on the waitlist at [facility]. PAST MEDICAL HISTORY: PAST MEDICAL [...] (Unable to assess.) Is the Patient a [place]: (Unable to assess.) Stressors: (Unable to assess.) Legal History: No Legal History Legal Details: None to report How Legal Issues Were Verified: [facility] Kitchen Designer of Courts Website;[employer] Department of Justice Sex Offender Website;[facility]'s Sexual Offender Website Gender Specific Test: Not Applicable Sex at Time of : Female Patient Identified Gender: (Unable to assess.) Preferred Pronoun: (Unable to assess.) Sexual Orientation: (Unable to assess.) Cultural/Druze Concerns Cultural Issues or Concerns That Might Affect Treatment: Unable to assess. Druze/Spiritual Issues or Concerns That Might Affect Treatment: [...] in interview due to pt symptomatology. Other Storage Receipt Poster Described Mood: Pt is calm and cooperative, but not interviewable Storage Receipt Poster: ED LENIN Hill Observed/Reported: Other: See Comment (Unable to assess.) Range of Affect: (Unable to assess.) Sleep: (Unable to assess.) Appetite: (Unable to assess.) Energy: (Unable to assess.) Anxiety/Trauma: (Unable to assess.) Non-Suicidal Self Injury Non-Suicidal Self Injury: (Unable to assess.) Suicidal Ideation Suicidal Ideation: (Pt's daughter denies hearing pt make mention of any SI. Offset Lithographic Press Operator is unable to assess with pt directly.) Homicidal Ideation Homicidal Ideation: (Pt's daughter denies hearing pt make mention of any SI. Offset Lithographic Press Operator is unable to assess with pt directly.) Non-Lethal Harm to Others or Damage/Destruction to Property Harm to Others or Damage/Destruction of Property: (Pt's daughter denies hearing pt make mention of any SI. Offset Lithographic Press Operator is unable to assess with pt directly.) [...] John Penny Admission Status: Full Admit Unit: [address]) Bed#: 692-2 Report Given To: Vitaliy Report Date: 06/06/22 Report Time: 223 Admission Type: Medical Certificate SIGNATURE: JACINTO Castro PATIENT NAME: Chay Teague DATE: June 05, 2022 TIME: 11:39 PM documented in this encounter [facility] 11-10-2021 Note Hospitalist Discharg e Summary Chay [...] these medications D3 Super Strength 50 MCG (2000 UT) Caps Generic drug: Cholecalciferol TAKE ONE [...] follow the di (more content not included)... [facility] 08-28-2021 History of Presen t illness Narrative [...] more off balance than her normal. [facility] Work Phone: Evaluation note Diagnosis Vitamin D deficiency Unspecified vitamin D deficiency Recurrent depression (HCC) Major depressive disorder, recurrent episode, unspecified Essential hypertension Unspecified essential hypertension Other specified hypothyroidism Mild intermittent asthma without complication Unspecified asthma documented in this encounter [facility] [employer] Phone: Evaluation note* Diagnosis Vitamin D deficiency Unspecified vitamin D deficiency Other specified hypothyroidism documented in this encounter [facility] [employer] Phone: Evaluation note* Diagnosis Dementia, senile with delusions, with behavioral disturbance (HCC)- Primary [facility] Work Phone: Reason for referral (narrative)No reason for referral information availableWMartin Memorial Hospital Work Phone: Summary Purpose Family History No Family History Records FoundNo Family History Records FoundNo Family History Records FoundNo Family History Records FoundNo Family History Records FoundNo Family History Records FoundNo Family History Records FoundNo Family History Records FoundNo Family History Records FoundNo Family History Records Found Advance Directives No Advanced Directives Records FoundDocuments on File Type Date Recorded Patient Informix Developer Expl anation Advance Directives and Living Will Advance Directives and Living Will 03/14/2017 10:57 AM Power of Human Resources Generalist 11/09/2018 4:07 PM POA - Jennifer Hidalgo Latest Code Status on File Code Status Date Activated Date Inactivated Comments DNR-CCA 03/06/2020 5:15 PM DNR-CCA 03/06/2017 8:30 PM 03/09/2017 4:35 PM Documents on File Type Date Recorded Patient Informix Developer Expl anation ACP-Advance Directive ACP-Advance Directive 03/14/2017 10:57 AM ACP-Power of Human Resources Generalist 11/09/2018 4:07 PM P OA - Jennifer Gwen Latest Code Status on File Code Status Date Activated Date Inactivated Comments DNR-CCA 03/06/2020 5:15 PM 03/09/2020 3:12 PM Latest Code Status on File Code Status Date Activated Date Inactivated Comments DNR-CCA 03/06/2017 8:30 PM 03/09/2017 4:35 PM Documents on File Type Date Recorded Patient Informix Developer Expl anation ACP-Advance Directive ACP-Power of Human Resources Generalist 11/09/2018 4:07 PM P OA - Jennifer Gwen ACP-Advance Directive 03/14/2017 10:57 AM Discharge Instructions * Pharmacy* Lilia Tracey [facility] - 03/07/2020 9:16 AM EDT * Discharge Instr - Lab* Deirdre Storm RN - 03/09/2020 11:36 AM EDT Your physician has ordered skilled home care services for you. Your home care will be provided by: [facility] [phone] * Additional Instructions* John Coe MD - 03/06/2020 Only take the Effexor; Stop taking the Aricept and Buspar; I put in a number for a Box Maker Paperboard if you wish to have the abscess [facility] Learning About Delirium What is delirium? [...] Where can you learn more? Go to [email or web address] and sign in to your [employer] account. Enter Z511 in the Search Health Information box to learn more about Learning About Delirium. If you do not have an account, please click on the "Sign Up Now" link. Current as of: October 22, 2019 Content Version: 12.5 [employer]. Care instructions adapted under license by [employer]. If you have questions about a medical condition or this instruction, always ask your healthcare professional. [employer] disclaims any warranty or liability for your [...] and the need for follow-up with a physician/COLORIST PHOTOGRAPHY/PA after discharge. Discussed the patient s personal [...] through Care Everywhere. * Altered Mental Status (Trinidadian) documented in this encounter History of Present Illness * Malka Wen OTA - 03/09/2020 9:32 AM EDT Occupational Therapy Facility/Department: [facility] 4S TELEMETRY Daily Treatment Note NAME: Chay Teague : 1945 Date of Service: 03/09/2020 Discharge Recommendations: Subacute/Halfway Facility Assessment Performance deficits / Impairments: Decreased [...] - 03/08/2020 3:24 PM EDT Discussed with HOME ECONOMIST- pt advanced to Dental soft and is appropriate for thin liquids at this time. Initiated chocolate Ensure high protein per MNT protocol. Ensure High Protein provides 160 kcals, 16 gprotein per serving. Will monitor PO intakes for adequacy. RD will continue to follow this patient. * Bozena Shafer PTA - 03/08/2020 2:30 PM EDT Physical Therapy Facility/Department: [facility] TELEMETRY Daily Treatment Note NAME: Chay Teague : 1945 Date of Service: 03/08/2020 Discharge Recommendations: Subacute/Halfway Facility Assessment Assessment: Pt appears more clear [...] Minutes: 25 Minutes(ther ex and gait) Bozena Shafer, CARMELO * Meghna Rothman RN - 03/08/2020 11:30 AM EDT Patient up to chair. Chair alarm in place. * Yoly Cooney SLP - 03/08/2020 10:47 AM EDT Speech Language Pathology Facility/Department: [facility] TELEMETRY Dysphagia Treatment Note NAME: Chay [...] Pain:no current complaint S: Pt was alert, health care sanitary technician at bedside. O: Assess advance diet trials. [...] dental soft. Total Minutes: 24 minutes Yoly Coonye M.A.CCC/HOME ECONOMIST Speech-Language Pathologist * John Coe MD - 03/08/2020 9:07 AM EDT Hospitalist Progress Note 03/08/2020 9:07 AM [phone]: Please page wa [phone] for patient care issues. [phone]: Please page [facility] Hospitalist for any issues. Subjective: Admit Date: 03/06/2020 PCP: Cynthia Uribe MD Interval History: Pt continues to improve. Per health and safety tech, mentation is near "90 %". Pt more talkative and able to converse with everyone in the room. No overnight issues. 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 * Julia Lantigua, PT - 03/07/2020 3:13 PM EDT Physical Therapy Facility/Department: [facility] 4S TELEMETRY Initial Assessment NAME: Chay Teague : 1945 Date of Service: 03/07/2020 Having reviewed the treatment plan and goals for this patient, I certify that the plan of care below is medically necessary and appropriate. Discharge Recommendations: Subacute/Halfway Facility PT Equipment Recommendations Other: TBD at [...] has noted cognitive deficits, h/o dementia and MENTASTA which may impact her ability to learn. [...] Ambulation Assistance: Independent Transfer Assistance: Independent Active Executor Of Estate: No Patient's Executor Of Estate Info: Family Mode of Transportation: Car Occupation: [...] recall of recent events;Decreased short term memory;Decreased long term care pharmacist memory Safety Judgement: Decreased awareness of need [...] for falls, Left in bed, Nurse notified AM-[facility] Score -[facility] Inpatient Mobility Raw Score : 10 (03/07/20 1504) [facility] Inpatient T-Scale Score : 32.29 (03/07/20 1504) Mobility Inpatient CMS 0-100% Score: 76.75 (03/07/20 1504) Mobility Inpatient CMS G-Code Modifier : CL (03/07/20 1504) -[facility] Mobility Inpatient How much difficulty turning over [...] climbing 3-5 steps with a railing?: Total AM-[facility] Inpatient [facility] Raw Score : [address] [facility] T-Scale Score : 32.29 Mobility Inpatient [...] Minutes 13 Julia Lantigua, PT * Rosina Pascual OT - 03/07/2020 3:11 PM EDT Occupational Therapy Occupational Therapy Initial Assessment Date: 03/07/2020 Patient Name: Chay Teague : 1945 Having reviewed the treatment plan and goals for this patient, I certify that the plan of care below is medically necessary and appropriate. Date of Service: 03/07/2020 Discharge Recommendations: Subacute/Halfway Facility Assessment Performance deficits / Impairments: Decreased [...] Ambulation Assistance: Independent Transfer Assistance: Independent Active Executor Of Estate: No Patient's Executor Of Estate Info: Family Mode of Transportation: Car Occupation: [...] recall of recent events;Decreased short term memory;Decreased long term care pharmacist memory Safety Judgement: Decreased awareness of need [...] 03/07/2020 10:49 AM EDT Physical Therapy Facility/Department: [facility] TELEMETRY Initial Assessment NAME: Chay Teague : 1945 Date of Service: 03/07/2020 Chart review completed. Per RN patient okay to participate in therapy assessments. Attempted to complete evaluation 3x this morning (initially with respiratory therapist, on second approach patient with speech therapist, on third attempt transport present to take patient to MRI). Will continue to follow and re-attempt as appropriate. Julia Lantigua PT * Rosina Pascual OT - 03/07/2020 [...] 03/07/2020 10:09 AM EDT Spoke w/Dr. Paulino- Madelin PULLIAM Aricept/Buspar * Keena Ortega RN - 03/07/2020 10:01 AM EDT Updated pts daughter, Jennifer. Via phone * Claude Beal RD, LD - 03/07/2020 9:37 AM EDT Nutrition Assessment Type and Reason for Visit: Initial, Positive Nutrition Screen Nutrition Recommendations: 1. Pt is NPO due to failed nursing swallow screen. HOME ECONOMIST consulted for further evaluation. Provide diet textures per HOME ECONOMIST recommendation. 2. Will assess PO intake adequacy once diet is advance to determine need for additional ONS. 3. Monitor for timely nutrition progression, wts, and labs. RD will follow. Nutrition Assessment: Pt admit with delirium/AMS. Pt is currently NPO due to failing nursing bedside swallow assessment. HOME ECONOMIST consult ordered for further evaluation. Pt with [...] fluid accumulation, Extremities(+1 non pitting BLE) 6. Edge Grinder Machine Strength-Not measured Nutrition Risk Level: High Nutrient Needs: Estimated Daily Total Kcal: 5098-8437 kcals(28-30) Estimated Daily Protein (g): 52-62(1-1.2) Estimated [...] ONS intake: NPO Anthropometric Measures: Ht: 5' 3" (160 cm)(per 08/2019 office visit) Current Body Wt: 200 lb (90.7 kg) Admission Body Wt: 200 lb (90.7 kg) Usual Body Wt: 200 lb (90.7 kg)(08/31/19) % Weight Change: , no significant wt loss noted [place] Body Wt: 115 lb (52.2 kg), % [place] Body 174% BMI Classification: BMI 35.0 - 39.9 Obese Class II Nutrition Interventions: Continue NPO Continued Inpatient Monitoring, Swallow Evaluation, Speech Therapy Nutrition Evaluation: Evaluation: Goals set Goals: Pt will receive/tolerate adequate nutrition with safe swallow Monitoring: Nutrition Progression, Diet Tolerance, I&O, Mental Status/Confusion, Weight, Pertinent Labs, Chewing/Swallowing, Monitor Bowel Function Contact Number: [phone] * Yoly Cooney, RONALD - 03/07/2020 8:17 AM EDT Speech Language Pathology Facility/Department: [facility] TELEMETRY CLINICAL BEDSIDE SWALLOW EVALUATION Having [...] Cognition currently effecting eating/swallowing. Treatment Plan Requires HOME ECONOMIST Intervention: Yes Duration/Frequency of Treatment: 3 visits Recommended Diet and Intervention Diet Solids Recommendation: Dysphagia Pureed (Dysphagia I) Liquid Consistency Recommendation: Mildly Thick ([place]) Recommended Form of Meds: PO Recommendations: Total feed;Assist feed Therapeutic Interventions: Patient/Family education Compensatory Swallowing Strategies Compensatory Swallowing Strategies: Alternate solids and liquids;Upright as possible for all oral intake;External pacing Treatment/Goals Short-term Goals Timeframe for Short-term Goals: 3 visits Goal 1: Pt will tolerate advance trials with HOME ECONOMIST. Goal 2: Pt will tolerate puree diet with mildly thick liquids without respiratory distress/symtoms aspiration. Goal 3: Pt will advance to soft diet as tolerated. General Chart Reviewed: Yes Subjective Subjective: rn clinical documentation visiting at bedside Behavior/Cognition: Lethargic;Requires cueing Respiratory Status: O2 via nasual cannula O2 Device: Nasal cannula Liters of Oxygen: 2 L Communication Observation: Aphasia(fluctuated.) Follows Directions: Simple Dentition: Dentures top;Dentures bottom Patient Positioning: Upright in bed Baseline Vocal Quality: Normal Volitional Swallow: Delayed Prior Dysphagia History: None indicated in [facility] EPIC Consistencies Administered: Dysphagia Minced and Moist (Dysphagia II);[place] - cup;Thin - cup;Ice Chips Vision/Hearing Vision [...] Patient Education Response: Needs reinforcement Therapy Time HOME ECONOMIST Individual Minutes Time In: 1010 Time Out: 1036 Minutes: RONALD Higgins 03/07/2020 1:38 PM * John Coe MD - 03/07/2020 7:34 AM EDT Hospitalist Progress Note 03/07/2020 7:34 AM [phone]: Please page me [phone] for patient care issues. [phone]: Please page [facility] night Hospitalist for any issues. Subjective: Admit Date: 03/06/2020 PCP: Cynthia Uribe MD Interval History: Want Ad Clerk in the room and states mentation is slightly improved. Daughter called nursing staff and stated she was concerned about an "abscess" in her groin. MRI/ MRA reviewed with [...] (36.6 C) (Temporal) Resp 18 Ht 5' 3" (1.6 m) Comment: per 08/2019 office visit [...] texture, turgor normal. 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 Neurologic: Neurovascularly intact without [...] Labial Abscess - Unable to visualize; Outpatient [employer] referral Diagnosis Date Anxiety Asthma Dementia (HCC) Depression History of blood transfusion Hypertension Hypothyroidism Plan - Monitor Mentation - PT/OT - [employer] referral as outpatient -am labs, replace lytes prn -increase activity -DVT prophylaxis: [x] Lovenox [] Heparin [] SCDs [x] Encourage ambulation [] Already on Anticoagulation Advance Directive: DNR-CCA Discharge planning: TBD John Coe MD Division of Hospitalist Medicine Inpatient Medical Services PAGER: [phone] * Ronda Thomas RN - 03/06/2020 6:56 [...] to beginDysphagia Pureed Diet with Mildly Thick ([place]) liquids. Proceed to formal Speech Pathologist Swallow [...] Complaint and Reason for Visit Chief Complaint RETIREMENT LAB WOR K LABWORK RETIREMENT LABWORK Chief Complaint RETIREMENT LAB WOR K LABWORK RETIREMENT LABWORK LABWORK Chief Complaint RETIREMENT LABWORK LABWORK RETIREMENT LABWORK Chief Complaint LABWORK RETIREMENT LABWORK RETIREMENT LABWORK Chief Complaint RETIREMENT LABWORK RETIREMENT LAB WORK Chief Complaint RETIREMENT LABWORK RETIREMENT LAB WORK RETIREMENT LAB WORK Chief Complaint RETIREMENT LAB WOR K RETIREMENT LAB WORK RETIREMENT LAB WORK Chief Complaint RETIREMENT LAB WOR K RETIREMENT LAB WORK RETIREMENT LAB WORK LABWORK Chief Complaint RETIREMENT LAB WOR K RETIREMENT LAB WORK LABWORK LABWORK Chief Complaint Admit Date LABWORK August 30, 2024 5 :00am RETIREMENT LAB WORK September 16 4:00am RETIREMENT LAB WORK November 10 5:00am LABWORK November 17, 2024 5:00am RETIREMENT LAB WORK November 22, 2024 5: 00am RETIREMENT LAB WORK December 09, 2024 4 :00am Additional Source Comments INFORMATION SOURCE (unrecogn ized section and content) DATE CREATED AUTHOR 03/17/2018 [facility] DATE CREATED AUTHOR AUTHOR'S ORGANIZ ATION 03/09/2019 [facility] DATE CREATED AUTHOR AUTHOR'S ORGANIZ ATION 03/15/2019 [facility] DATE CREATED AUTHOR AUTHOR'S ORGANIZ ATION 08/31/2021 [facility] DATE CREATED AUTHOR AUTHOR'S ORGANIZ ATION 09/18/2021 [facility] DATE CREATED AUTHOR AUTHOR'S ORGANIZ ATION 11/21/2021 [facility] DATE CREATED AUTHOR AUTHOR'S ORGANIZ ATION 06/22/2022 [facility] DATE CREATED AUTHOR AUTHOR'S ORGANIZ ATION 06/25/2022 [facility] DATE CREATED AUTHOR AUTHOR'S ORGANIZ ATION 08/28/2022 [facility] DATE CREATED AUTHOR AUTHOR'S ORGANIZ ATION [facility] Reason for Visit (unrecogniz ed section [...] or prosecute any alcohol or drug abuse patient.[facility] Teams (unrecognized sec tion and content) Team Status: Inactive Member Role Status Dates Saurabh MANJARREZ MD Attending Provider, Referring Pro vider Active Team Status: Inactive Member Role Status Dates Saurabh MANJARREZ MD Attending Provider Active Clinical Transformation Specialist Relationship Specialty Start Date End Date Cynthia Uribe MD [address] [facility] [address] [place] [address] PCP - General Family Practice 06/05/22 Team [...] BE BASED ON THE PRIMARY CLINICAL RECORDS. [employer]. provides no warranty or guarantee of the accuracy or completeness of information in this document.
[2025-05-09 08:58] LABS: Valproic Acid (Depakene) Level 7 ug/mL (50-100)
[2025-05-09 09:15] LABS: Vitamin D,25 Hydroxy 40.8 ng/mL (30-100)
== END ==
LOC: OLS.ACH 05:00
PROVIDERS: Visit Provider Internal Medicine
DX: F29 Unspecified psychosis not due to a substance or known physiological condition (principal)
CPT/HCPCS: 36415; 80164; 82306

== ENCOUNTER → 2025-05-26 05:00 | Outpatient (REF) | payer MEDICARE, SELFPAY ==
--- OUTSIDE RECORDS SUMMARY | 2025-05-26 04:10 | XMS RPT_ITS | CCD ---
Author Organization [facility] Care Team Providers [facility] Worker Name Role Phone Barbara, Scott Unavailable Unavailable Isbell, Keena Unavailable Unavailable Unknown, Referring Provider Unavailable Unav ailable Cynthia Uribe Unavailable Unavailable Cynthia Uribe Primary Care Provider Cynthia Uribe Primary Care Provider [phone] Jojo MARIANO, Cynthia Primary Care Provider Unknown, Referring Provider Unavailable Unav ailable Unavailable Unavailable Jojo MARIANO, Cynthia Primary Care Provider Jojo MARIANO, Cynthia Primary Care Provider CYNTHIA URIBE [...] hours as needed for Pain 0 Active [id number] 200 actuat albuterol 0.09 mg/actuat metered dose [...] Substituted for Budesonide-Formote rol (SYMBICORT). Handicap [facility] [place] (5 sources) Start: 08-31-2019 Handicap [facility] [place] Indications: Mild intermittent asthma without complication by [...] reach optimal image enhancement. polyethylene glycol 3350 28790 mg powder for oral solution (1 source) [...] 10 mL, Intravenous, PRN, Line Care, Per [employer] Request, Starting Fri03/06/20 at 1709, For 72 hours May use order for Line Care after every IV line use and Agitated Saline Bubble Study. Administration for Bubble Study per lcsw request for only. Remove 1 mL 0.9% [...] every week vitamin D (ERGOCALCIFEROL) 1.25 MG (45128 UT) CAPS capsule Indications: Vitamin D deficiency TAKE 1 CAPSULE BY MOUTH ONE TIME PER WEEK 12 capsule 0 02/21/2021 Active Start: 06-01-2020 take 1 capsule by mo [facility] every week vitamin D (ERGOCALCIFEROL) 1.25 MG (09519 UT) CAPS capsule Indications: Vitamin D deficiency TAKE 1 CAPSULE BY MOUTH ONE TIME PER WEEK 12 capsule 1 06/01/2020 Active Start: 02-01-2020 take 21478 [IU] by m outh every week 50,000 Units, Oral, WEEKLY, First dose on Fri03/07/20 at 0900 Start: 03-09-2017 take 1 capsule by [facility] every week vitamin D (ERGOCALCIFEROL) 33380 units capsule Take 1 capsule by mouth [...] unspecified; Translations: [Pure hypercholesterolemia , unspecified] Onset: 04-03-2025 Chronic Essential hypertension (9 sources) Essential hypertension; [...] Range Facility Valproic Acid (Depakene) Lev ladonna 05-09-2025 VALPROIC ACID 7 ug/mL Low 50-100 [facility] Comment on above: Order Comment: 105- Result Comment: Valp roic Acid concentrations >100 ug/mL are potentially toxic. Performed By: #### L 506.1001, L501.8100 #### [facility] [address] [place], [address] Vitamin D,25 Hydroxyon 05-09 Vitamin D 25-OH 40.8 ng/mL Normal 30-100 [facility] Comment on above: Order Comment: 105- Result Comment: Kerline min D Status Deficiency: <20 ng/mL (50nmol/L) Insufficiency: 20-30 ng/mL (50-75 nmol/L) Sufficiency: 30-100 ng/mL (75-250 nmol/L) Toxicity: >100 ng/mL (>250 nmol/L) Performed By: #### L 506.1001, L501.8100 #### [facility] [address] [place], [place], [id number] RESPIRATORY PANEL MOLECULARo n 04-08-2025 RP PANEL ADENOVIRUS Not Detected INFLUENZA A Not Detected INFLUENZA A (SUBTYPE H1) Not Detected INFLUENZA A (SUBTYPE H3) Not Detected INFLUENZA B Not Detected HUMAN METAPHNEUMO Not Detected PARAINFLUENZA 1 Not Detected PARAINFLUENZA 2 Not Detected PARAINFLUENZA 3 Not Detected PARAINFLUENZA 4 Not Detected RHINOVIRUS Not Detected RSV A Not Detected RSV B Not Detected Normal [facility] Comment on above: Performed By: #### M 100.638 #### [facility] [address] [place], [place], [id number] CBC W/Diff, Automatedon 02-20 Absolute Lymph 3.19 X10 3/uL Normal 0.83-4.51 [facility] Comment on above: Order Comment: 105.1 Performed By: #### L 501.9520, L500.4050, L100.0100, L500.4100 #### [facility] [address] [place], [address] Absolute Neut 3.0 X10 3/uL Normal 2.0-7.7 [facility] Comment on above: Order Comment: 105.1 Performed By: #### L 501.9520, L500.4050, L100.0100, L500.4100 #### [facility] [address] [place], [address] Basophils/100 WBC (Bld) 1.0 % Normal 0-1 [facility] Comment on above: Order Comment: 105.1 Performed By: #### L 501.9520, L500.4050, L100.0100, L500.4100 #### [facility] [address] [place], [address] Eosinophils/100 WBC (Bld) 3.8 % Normal 0-5 [facility] Comment on above: Order Comment: 105.1 Performed By: #### L 501.9520, L500.4050, L100.0100, L500.4100 #### [facility] [address] [place], [address] Erythrocyte distribution width (RBC) [Ratio] 13.4 % Normal 11.6-14.6 [facility] Comment on above: Order Comment: 105.1 Performed By: #### L 501.9520, L500.4050, L100.0100, L500.4100 #### [facility] [address] [place], [address] Hematocrit (Bld) [Volume fraction] 45.0 % Normal 37-47 [facility] Comment on above: Order Comment: 105.1 Performed By: #### L 501.9520, L500.4050, L100.0100, L500.4100 #### [facility] [address] [place], [address] Hemoglobin (Bld) [Mass/Vol] 14.7 g/dL Normal 12.0-15.0 [facility] Comment on above: Order Comment: 105.1 Performed By: #### L 501.9520, L500.4050, L100.0100, L500.4100 #### [facility] [address] [place], [address] IG% 0.300 Normal 0.0-0.9 [facility] Comment on above: Order Comment: 105.1 Result Comment: IG% - Immature Granulocytes (promyelocytes, myelocytes and metamyelocytes) > 1% indicates that a LEFT SHIFT is Present. Performed By: #### L 501.9520, L500.4050, L100.0100, L500.4100 #### [facility] [address] [place], [address] Lymphocytes/100 WBC (Bld) 45.4 % High 19-41 [facility] Comment on above: Order Comment: 105.1 Performed By: #### L 501.9520, L500.4050, L100.0100, L500.4100 #### [facility] [address] [place], [address] MCH (RBC) [Entitic mass] 31.7 pg Normal 27.0-32.0 [facility] Comment on above: Order Comment: 105.1 Performed By: #### L 501.9520, L500.4050, L100.0100, L500.4100 #### [facility] [address] [place], [address] MCHC (RBC) [Mass/Vol] 32.7 g/dL Normal 32-36 [facility] Comment on above: Order Comment: 105.1 Performed By: #### L 501.9520, L500.4050, L100.0100, L500.4100 #### [facility] [address] [place], [address] MCV (RBC) [Entitic vol] 97.0 fL Normal 81-99 [facility] Comment on above: Order Comment: 105.1 Performed By: #### L 501.9520, L500.4050, L100.0100, L500.4100 #### [facility] [address] [place], [address] Monocytes/100 WBC (Bld) 6.8 % Normal 0-10 [facility] Comment on above: Order Comment: 105.1 Performed By: #### L 501.9520, L500.4050, L100.0100, L500.4100 #### [facility] [address] [place], [address] Neutrophils/100 WBC (Bld) 42.7 % Low 47-70 [facility] Comment on above: Order Comment: 105.1 Performed By: #### L 501.9520, L500.4050, L100.0100, L500.4100 #### [facility] [address] [place], [address] Nucleated RBC (Bld) [#/Vol] 0 10*3/uL Normal 0-5 [facility] Comment on above: Order Comment: 105.1 Performed By: #### L 501.9520, L500.4050, L100.0100, L500.4100 #### [facility] [address] [place], [address] Platelet mean volume (Bld) [Entitic vol] 11.9 fL Normal 6.2-12.0 [facility] Comment on above: Order Comment: 105.1 Performed By: #### L 501.9520, L500.4050, L100.0100, L500.4100 #### [facility] [address] [place], [address] Platelets (Bld) [#/Vol] 204 10*3/uL Normal 150-450 [facility] Comment on above: Order Comment: 105.1 Performed By: #### L 501.9520, L500.4050, L100.0100, L500.4100 #### [facility] [address] [place], [address] RBC (Bld) [#/Vol] 4.64 10*6/uL Normal 4.2-5.4 [facility] Comment on above: Order Comment: 105.1 Performed By: #### L 501.9520, L500.4050, L100.0100, L500.4100 #### [facility] [address] [place], [address] RDW SD 47.8 fl High 35.1-43.9 [facility] Comment on above: Order Comment: 105.1 Performed By: #### L 501.9520, L500.4050, L100.0100, L500.4100 #### [facility] [address] [place], [address] WBC (Bld) [#/Vol] 7.0 10*3/uL Normal 4.4-11.0 [facility] Comment on above: Order Comment: 105.1 Performed By: #### L 501.9520, L500.4050, L100.0100, L500.4100 #### [facility] [address] [place], [address] Comprehensive Metabolic Prof [facility] 03-03-2025 Albumin [Mass/Vol] 3.3 g/dL Low 3.4-4.8 [facility] Comment on above: Order Comment: 105.1 Performed By: #### L 501.9520, L500.4050, L100.0100, L500.4100 #### [facility] [address] [place], [address] Albumin/Globulin [Mass ratio] 1.1 {ratio} Normal 0.9-2.4 [facility] Comment on above: Order Comment: 105.1 Performed By: #### L 501.9520, L500.4050, L100.0100, L500.4100 #### [facility] [address] [place], [address] ALK PHOS 57 U/L Normal 35-104 [facility] Comment on above: Order Comment: 105.1 Performed By: #### L 501.9520, L500.4050, L100.0100, L500.4100 #### [facility] [address] [place], [address] ALT [Catalytic activity/Vol] 11 U/L Normal <=34 [facility] Comment on above: Order Comment: 105.1 Performed By: #### L 501.9520, L500.4050, L100.0100, L500.4100 #### [facility] [address] [place], [address] AST [Catalytic activity/Vol] 26 U/L Normal <=31 [facility] Comment on above: Order Comment: 105.1 Result Comment: Hemo lysis present, Results??could be affected. ?? Performed By: #### L 501.9520, L500.4050, L100.0100, L500.4100 #### [facility] [address] [place], [address] Bilirubin [Mass/Vol] 0.37 mg/dL Normal 0.00-1.30 [facility] Comment on above: Order Comment: 105.1 Performed By: #### L 501.9520, L500.4050, L100.0100, L500.4100 #### [facility] [address] [place], [address] BUN/CRE 24.8 RATIO High 10-20 [facility] Comment on above: Order Comment: 105.1 Performed By: #### L 501.9520, L500.4050, L100.0100, L500.4100 #### [facility] [address] [place], [address] Calcium [Mass/Vol] 9.0 mg/dL Normal 7.6-11.0 [facility] Comment on above: Order Comment: 105.1 Performed By: #### L 501.9520, L500.4050, L100.0100, L500.4100 #### [facility] [address] [place], [address] Chloride [Moles/Vol] 106 mmol/L Normal 98-108 [facility] Comment on above: Order Comment: 105.1 Performed By: #### L 501.9520, L500.4050, L100.0100, L500.4100 #### [facility] [address] [place], [address] CO2 [Moles/Vol] 25.7 mmol/L Normal 21.0-32.0 [facility] Comment on above: Order Comment: 105.1 Performed By: #### L 501.9520, L500.4050, L100.0100, L500.4100 #### [facility] [address] [place], [address] Creatinine [Mass/Vol] 0.82 mg/dL Normal 0.70-1.20 [facility] Comment on above: Order Comment: 105.1 Performed By: #### L 501.9520, L500.4050, L100.0100, L500.4100 #### [facility] [address] [place], [address] GAP 10 Normal 5-15 [facility] Comment on above: Order Comment: 105.1 Performed By: #### L 501.9520, L500.4050, L100.0100, L500.4100 #### [facility] [address] [place], [address] GFR/1.73 sq M.predicted among non-blacks MDRD (S/P/Bld) [Vol rate/Area] 72 mL/min/{1.73_m2} Normal >60 [facility] Comment on above: Order Comment: 105.1 Result Comment: mL/m in/1.73m2 CKD-EPI Creatinine Equation (2020) Performed By: #### L 501.9520, L500.4050, L100.0100, L500.4100 #### [facility] [address] [place], [address] Globulin (S) [Mass/Vol] 3.0 g/dL Normal 2.2-4.2 [facility] Comment on above: Order Comment: 105.1 Performed By: #### L 501.9520, L500.4050, L100.0100, L500.4100 #### [facility] [address] [place], [address] Glucose [Mass/Vol] 82 mg/dL Normal 70-99 [facility] Comment on above: Order Comment: 105.1 Performed By: #### L 501.9520, L500.4050, L100.0100, L500.4100 #### [facility] [address] [place], [address] Potassium [Moles/Vol] 4.4 mmol/L Normal 3.3-5.1 [facility] Comment on above: Order Comment: 105.1 Result Comment: Hemo lysis present, Results??could be affected. ?? Performed By: #### L 501.9520, L500.4050, L100.0100, L500.4100 #### [facility] [address] [place], [address] Sodium [Moles/Vol] 141 mmol/L Normal 133-145 [facility] Comment on above: Order Comment: 105.1 Performed By: #### L 501.9520, L500.4050, L100.0100, L500.4100 #### [facility] [address] [place], [address] T PROT 6.3 g/dL Normal 5.9-8.4 [facility] Comment on above: Order Comment: 105.1 Performed By: #### L 501.9520, L500.4050, L100.0100, L500.4100 #### [facility] [address] [place], [address] Urea nitrogen [Mass/Vol] 20 mg/dL High 4-19 [facility] Comment on above: Order Comment: 105.1 Performed By: #### L 501.9520, L500.4050, L100.0100, L500.4100 #### [facility] [address] [place], [address] Lipid Profileon 03-03-2025 CHOL:HDL 4.62 Normal [facility] Comment on above: Order Comment: 105.1 Performed By: #### L 501.9520, L500.4050, L100.0100, L500.4100 #### [facility] [address] [place], [address] Cholesterol [Mass/Vol] 192 mg/dL Normal <=200 [facility] Comment on above: Order Comment: 105.1 Result Comment: Chol esterol level, Desirable <200 mg/dL Borderline high cholesterol 200-239 mg/dL High cholesterol >=240 mg/dL Recommendations of the NCEP Adult Treatment Panel for the following risk-cutoff thresholds for the [place] population. Performed By: #### L 501.9520, L500.4050, L100.0100, L500.4100 #### [facility] [address] [place], [address] Cholesterol in HDL [Mass/Vol] 42 mg/dL Normal [facility] Comment on above: Order Comment: 105.1 Result Comment: Sherie onal Cholesterol Education Program (NCEP) guidelines: <40 mg/dL: Low HDL-cholesterol (major risk factor for CHD) >= 60 mg/dL: High HDL-cholesterol (negative risk factor for CHD) HDL-cholesterol is affected by a number of factors, e.g. smoking, exercise, hormones, sex and age. Performed By: #### L 501.9520, L500.4050, L100.0100, L500.4100 #### [facility] [address] [place], [address] Cholesterol in LDL [Mass/Vol] 119 mg/dL Normal [facility] Comment on above: Order Comment: 105.1 Result Comment: Bord faildj=343-832 mg/dL Higher Ymup=128 mg/dL or greater Performed By: #### L 501.9520, L500.4050, L100.0100, L500.4100 #### [facility] [address] [place], [address] Cholesterol in VLDL [Mass/Vol] 31 mg/dL Normal 5-40 [facility] Comment on above: Order Comment: 105.1 Performed By: #### L 501.9520, L500.4050, L100.0100, L500.4100 #### [facility] [address] [place], [address] Triglyceride [Mass/Vol] 155 mg/dL Normal [facility] Comment on above: Order Comment: 105.1 Result Comment: The drugs N-Acetylcysteine and Metamizole may falsely depress this assay. Normal range: <150 mg/dL Borderline High: 150-199 mg/dL High: 200-499 mg/dL Very High: >500 mg/dL Performed By: #### L 501.9520, L500.4050, L100.0100, L500.4100 #### [facility] [address] [place], [address] Thyroid Stim Hormone (TSH)on 03-03-2025 TSH 1.250 uIU/mL Normal 0.300-4.200 [facility] Comment on above: Order Comment: 105-1 Performed By: #### L 506.1001, L501.8100 #### [facility] [address] [place], [place], [address] Valproic Acid (Depakene) Lev ladonna 02-16-2025 VALPROIC ACID 27 ug/mL Low 50-100 [facility] Comment on above: Order Comment: Result Comment: Valp roic Acid concentrations >100 ug/mL are potentially toxic. Performed By: #### L 506.1001, L501.8100 #### [facility] [address] [place], [address] Vitamin D,25 Hydroxyon 02-16 Vitamin D 25-OH 36.9 ng/mL Normal 30-100 [facility] Comment on above: Order Comment: Result Comment: Kerline min D Status Deficiency: <20 ng/mL (50nmol/L) Insufficiency: 20-30 ng/mL (50-75 nmol/L) Sufficiency: 30-100 ng/mL (75-250 nmol/L) Toxicity: >100 ng/mL (>250 nmol/L) Performed By: #### L 506.1001, L501.8100 #### [facility] [address] [place], [place], [id number] Absolute neutrophil countOrd ered By: Saurabh Fernandez on 12-09-2024 Neutrophils (Bld) [#/Vol] 3.7 10*3/uL 2.0-7.7 [facility] Anion gap in Serum or Plasma Ordered By: Saurabh Fernandez on 12-09-2024 Anion gap [Moles/Vol] 8 mmol/L 5-15 [facility] BUN/creatinine ratioOrdered By: Saurabh Fernandez on 12-09-2024 Urea nitrogen/Creatinine [Mass ratio] 21.6 mg/mg High 10- [facility] Basophil percentageOrdered B y: Saurabh Fernandez on 12-09-2024 Basophils/100 WBC (Bld) 0.9 % 0-1 [facility] Bilirubin, totalOrdered By: Saurabh Fernandez on 12-09-2024 Bilirubin [Mass/Vol] 0.48 mg/dL 0.00-1.30 [facility] CBC W/Diff, Automatedon 11-21 Absolute Lymph 3.12 X10 3/uL Normal 0.83-4.51 [facility] Comment on above: Order Comment: 105.1 Performed By: #### L 500.4050, L500.4100, L501.9520, L100.0100 #### [facility] [address] [place], [address] Absolute Neut 3.7 X10 3/uL Normal 2.0-7.7 [facility] Comment on above: Order Comment: 105.1 Performed By: #### L 500.4050, L500.4100, L501.9520, L100.0100 #### [facility] [address] [place], [address] Basophils/100 WBC (Bld) 0.9 % Normal 0-1 [facility] Comment on above: Order Comment: 105.1 Performed By: #### L 500.4050, L500.4100, L501.9520, L100.0100 #### [facility] [address] [place], [address] Eosinophils/100 WBC (Bld) 4.1 % Normal 0-5 [facility] Comment on above: Order Comment: 105.1 Performed By: #### L 500.4050, L500.4100, L501.9520, L100.0100 #### [facility] [address] [place], [address] Erythrocyte distribution width (RBC) [Ratio] 14.9 % High 11.6-14.6 [facility] Comment on above: Order Comment: 105.1 Performed By: #### L 500.4050, L500.4100, L501.9520, L100.0100 #### [facility] [address] [place], [address] Hematocrit (Bld) [Volume fraction] 40.3 % Normal 37-47 [facility] Comment on above: Order Comment: 105.1 Performed By: #### L 500.4050, L500.4100, L501.9520, L100.0100 #### [facility] [address] [place], [address] Hemoglobin (Bld) [Mass/Vol] 13.1 g/dL Normal 12.0-15.0 [facility] Comment on above: Order Comment: 105.1 Performed By: #### L 500.4050, L500.4100, L501.9520, L100.0100 #### [facility] [address] [place], [address] IG% 0.400 Normal 0.0-0.9 [facility] Comment on above: Order Comment: 105.1 Result Comment: IG% - Immature Granulocytes (promyelocytes, myelocytes and metamyelocytes) > 1% indicates that a LEFT SHIFT is Present. Performed By: #### L 500.4050, L500.4100, L501.9520, L100.0100 #### [facility] [address] [place], [address] Lymphocytes/100 WBC (Bld) 39.9 % Normal 19-41 [facility] Comment on above: Order Comment: 105.1 Performed By: #### L 500.4050, L500.4100, L501.9520, L100.0100 #### [facility] [address] [place], [address] MCH (RBC) [Entitic mass] 32.1 pg High 27.0-32.0 [facility] Comment on above: Order Comment: 105.1 Performed By: #### L 500.4050, L500.4100, L501.9520, L100.0100 #### [facility] [address] [place], [address] MCHC (RBC) [Mass/Vol] 32.5 g/dL Normal 32-36 [facility] Comment on above: Order Comment: 105.1 Performed By: #### L 500.4050, L500.4100, L501.9520, L100.0100 #### [facility] [address] [place], [address] MCV (RBC) [Entitic vol] 98.8 fL Normal 81-99 [facility] Comment on above: Order Comment: 105.1 Performed By: #### L 500.4050, L500.4100, L501.9520, L100.0100 #### [facility] [address] [place], [address] Monocytes/100 WBC (Bld) 7.0 % Normal 0-10 [facility] Comment on above: Order Comment: 105.1 Performed By: #### L 500.4050, L500.4100, L501.9520, L100.0100 #### [facility] [address] [place], [address] Neutrophils/100 WBC (Bld) 47.7 % Normal 47-70 [facility] Comment on above: Order Comment: 105.1 Performed By: #### L 500.4050, L500.4100, L501.9520, L100.0100 #### [facility] [address] [place], [address] Nucleated RBC (Bld) [#/Vol] 0 10*3/uL Normal 0-5 [facility] Comment on above: Order Comment: 105.1 Performed By: #### L 500.4050, L500.4100, L501.9520, L100.0100 #### [facility] [address] [place], [address] Platelet mean volume (Bld) [Entitic vol] 11.4 fL Normal 6.2-12.0 [facility] Comment on above: Order Comment: 105.1 Performed By: #### L 500.4050, L500.4100, L501.9520, L100.0100 #### [facility] [address] [place], [address] Platelets (Bld) [#/Vol] 160 10*3/uL Normal 150-450 [facility] Comment on above: Order Comment: 105.1 Performed By: #### L 500.4050, L500.4100, L501.9520, L100.0100 #### [facility] [address] [place], [address] RBC (Bld) [#/Vol] 4.08 10*6/uL Low 4.2-5.4 [facility] Comment on above: Order Comment: 105.1 Performed By: #### L 500.4050, L500.4100, L501.9520, L100.0100 #### [facility] [address] [place], [address] RDW SD 54.3 fl High 35.1-43.9 [facility] Comment on above: Order Comment: 105.1 Performed By: #### L 500.4050, L500.4100, L501.9520, L100.0100 #### [facility] [address] [place], [address] WBC (Bld) [#/Vol] 7.8 10*3/uL Normal 4.4-11.0 [facility] Comment on above: Order Comment: 105.1 Performed By: #### L 500.4050, L500.4100, L501.9520, L100.0100 #### [facility] [address] [place], [address] Calculated very low density lipoprotein (VLDL) cholesterol measurementOrdered By: Saurabh Fernandez on 12-09-2024 VLDL Cholesterol 36 mg/dL 5-40 [facility] Carbon dioxide, total [Moles /volume] in Central venous bloodOrdered By: Saurabh Fernandez on 12-09-2024 CO2 [Moles/Vol] 28.8 mmol/L 21.0-32.0 [facility] Chloride assayOrdered By: Nieto on 12-09-2024 Chloride [Moles/Vol] 106 mmol/L 98-108 [facility] Comprehensive Metabolic Prof ilon 12-09-2024 Albumin [Mass/Vol] 3.3 g/dL Low 3.4-4.8 [facility] Comment on above: Order Comment: 105.1 Performed By: #### L 500.4050, L500.4100, L501.9520, L100.0100 #### [facility] [address] [place], [address] Albumin/Globulin [Mass ratio] 1.1 {ratio} Normal 0.9-2.4 [facility] Comment on above: Order Comment: 105.1 Performed By: #### L 500.4050, L500.4100, L501.9520, L100.0100 #### [facility] [address] [place], [address] ALK PHOS 62 U/L Normal 35-104 [facility] Comment on above: Order Comment: 105.1 Performed By: #### L 500.4050, L500.4100, L501.9520, L100.0100 #### [facility] [address] [place], [address] ALT [Catalytic activity/Vol] 11 U/L Normal <=34 [facility] Comment on above: Order Comment: 105.1 Performed By: #### L 500.4050, L500.4100, L501.9520, L100.0100 #### [facility] [address] [place], [address] AST [Catalytic activity/Vol] 17 U/L Normal <=31 [facility] Comment on above: Order Comment: 105.1 Performed By: #### L 500.4050, L500.4100, L501.9520, L100.0100 #### [facility] [address] [place], [address] Bilirubin [Mass/Vol] 0.48 mg/dL Normal 0.00-1.30 [facility] Comment on above: Order Comment: 105.1 Performed By: #### L 500.4050, L500.4100, L501.9520, L100.0100 #### [facility] [address] [place], [address] BUN/CRE 21.6 RATIO High 10-20 [facility] Comment on above: Order Comment: 105.1 Performed By: #### L 500.4050, L500.4100, L501.9520, L100.0100 #### [facility] [address] [place], [address] Calcium [Mass/Vol] 8.9 mg/dL Normal 7.6-11.0 [facility] Comment on above: Order Comment: 105.1 Performed By: #### L 500.4050, L500.4100, L501.9520, L100.0100 #### [facility] [address] [place], [address] Chloride [Moles/Vol] 106 mmol/L Normal 98-108 [facility] Comment on above: Order Comment: 105.1 Performed By: #### L 500.4050, L500.4100, L501.9520, L100.0100 #### [facility] [address] [place], [address] CO2 [Moles/Vol] 28.8 mmol/L Normal 21.0-32.0 [facility] Comment on above: Order Comment: 105.1 Performed By: #### L 500.4050, L500.4100, L501.9520, L100.0100 #### [facility] [address] [place], [address] Creatinine [Mass/Vol] 0.73 mg/dL Normal 0.70-1.20 [facility] Comment on above: Order Comment: 105.1 Performed By: #### L 500.4050, L500.4100, L501.9520, L100.0100 #### [facility] [address] [place], [address] GAP 8 Normal 5-15 [facility] Comment on above: Order Comment: 105.1 Performed By: #### L 500.4050, L500.4100, L501.9520, L100.0100 #### [facility] [address] [place], [address] GFR/1.73 sq M.predicted among non-blacks MDRD (S/P/Bld) [Vol rate/Area] 82 mL/min/{1.73_m2} Normal >60 [facility] Comment on above: Order Comment: 105.1 Result Comment: mL/m in/1.73m2 CKD-EPI Creatinine Equation (2020) Performed By: #### L 500.4050, L500.4100, L501.9520, L100.0100 #### [facility] [address] [place], [address] Globulin (S) [Mass/Vol] 3.0 g/dL Normal 2.2-4.2 [facility] Comment on above: Order Comment: 105.1 Performed By: #### L 500.4050, L500.4100, L501.9520, L100.0100 #### [facility] [address] [place], [address] Glucose [Mass/Vol] 85 mg/dL Normal 70-99 [facility] Comment on above: Order Comment: 105.1 Performed By: #### L 500.4050, L500.4100, L501.9520, L100.0100 #### [facility] [address] [place], [address] Potassium [Moles/Vol] 4.4 mmol/L Normal 3.3-5.1 [facility] Comment on above: Order Comment: 105.1 Performed By: #### L 500.4050, L500.4100, L501.9520, L100.0100 #### [facility] [address] [place], [address] Sodium [Moles/Vol] 142 mmol/L Normal 133-145 [facility] Comment on above: Order Comment: 105.1 Performed By: #### L 500.4050, L500.4100, L501.9520, L100.0100 #### [facility] [address] [place], [address] T PROT 6.3 g/dL Normal 5.9-8.4 [facility] Comment on above: Order Comment: 105.1 Performed By: #### L 500.4050, L500.4100, L501.9520, L100.0100 #### [facility] [address] [place], [address] Urea nitrogen [Mass/Vol] 16 mg/dL Normal 4-19 [facility] Comment on above: Order Comment: 105.1 Performed By: #### L 500.4050, L500.4100, L501.9520, L100.0100 #### [facility] [address] [place], [address] Eosinophil percentageOrdered By: Saurabh Fernandez on 12-09-2024 Eosinophils/100 WBC (Bld) 4.1 % 0-5 [facility] Erythrocyte distribution wid th (RBC) [Ratio]Ordered By: Saurabh Fernandez on 12-09-2024 Erythrocyte distribution width (RBC) [Entitic vol] 54.3 fL High 35.1-43.9 [facility] Erythrocyte distribution wid th ratioOrdered By: Saurabh Fernandez on 12-09-2024 Erythrocyte distribution width (RBC) [Ratio] 14.9 % High 11.6-14.6 [facility] GFR/1.73 sq M.predicted layne g non-blacks MDRD (S/P/Bld) [Vol rate/Area]Ordered By: Saurabh Fernandez on 12-09-2024 Estimated GFR (MDRD) Non-Af Amer 82 >60 [facility] Comment on above: mL/min/1.73m2 CKD-EP I Creatinine Equation (2020) Hematocrit Auto (Bld) [Volum e fraction]Ordered By: Saurabh Fernandez on 12-09-2024 Hematocrit (Bld) [Volume fraction] 40.3 % 37-47 [facility] Hemoglobin measurementOrdere d By: Saurabh Fernandez on 12-09-2024 Hemoglobin (Bld) [Mass/Vol] 13.1 g/dL 12.0-15.0 [facility] Immature granulocytes/100 WB C Auto (Bld)Ordered By: Saurabh Fernandez on 12-09-2024 Immature granulocytes/100 WBC (Bld) 0.400 % 0.0-0.9 [facility] Comment on above: IG% - Immature Granu locytes (promyelocytes, myelocytes and metamyelocytes) > 1% indicates that a LEFT SHIFT is Present. LDL calc ser/plasOrdered By: Saurabh Fernandez on 12-09-2024 LDL Cholesterol, Calculated 120 mg/dL [facility] Comment on above: Doyqgzenlb=880-561 m g/dL & Higher Euvu=816 mg/dL or greater Laboratory - Chemistry and C hemistry - challengeOrdered By: Saurabh Fernandez on 12-09-2024 AST [Catalytic activity/Vol] 17 U/L <32 [facility] Lipid Profileon 12-09-2024 CHOL:HDL 4.34 Normal [facility] Comment on above: Order Comment: 105.1 Performed By: #### L 500.4050, L500.4100, L501.9520, L100.0100 #### [facility] [address] [place], [address] Cholesterol [Mass/Vol] 203 mg/dL High <=200 [facility] Comment on above: Order Comment: 105.1 Result Comment: Chol esterol level, Desirable <200 mg/dL Borderline high cholesterol 200-239 mg/dL High cholesterol >=240 mg/dL Recommendations of the NCEP Adult Treatment Panel for the following risk-cutoff thresholds for the [place] population. Performed By: #### L 500.4050, L500.4100, L501.9520, L100.0100 #### [facility] [address] [place], [address] Cholesterol in HDL [Mass/Vol] 47 mg/dL Normal [facility] Comment on above: Order Comment: 105.1 Result Comment: Sherie onal Cholesterol Education Program (NCEP) guidelines: <40 mg/dL: Low HDL-cholesterol (major risk factor for CHD) >= 60 mg/dL: High HDL-cholesterol (negative risk factor for CHD) HDL-cholesterol is affected by a number of factors, e.g. smoking, exercise, hormones, sex and age. Performed By: #### L 500.4050, L500.4100, L501.9520, L100.0100 #### [facility] [address] [place], [address] Cholesterol in LDL [Mass/Vol] 120 mg/dL Normal [facility] Comment on above: Order Comment: 105.1 Result Comment: Bord kjktlo=115-206 mg/dL Higher Leqx=072 mg/dL or greater Performed By: #### L 500.4050, L500.4100, L501.9520, L100.0100 #### [facility] [address] [place], [address] Cholesterol in VLDL [Mass/Vol] 36 mg/dL Normal 5-40 [facility] Comment on above: Order Comment: 105.1 Performed By: #### L 500.4050, L500.4100, L501.9520, L100.0100 #### [facility] [address] [place], [address] Triglyceride [Mass/Vol] 180 mg/dL Normal [facility] Comment on above: Order Comment: 105.1 Result Comment: The drugs N-Acetylcysteine and Metamizole may falsely depress this assay. Normal range: <150 mg/dL Borderline High: 150-199 mg/dL High: 200-499 mg/dL Very High: >500 mg/dL Performed By: #### L 500.4050, L500.4100, L501.9520, L100.0100 #### [facility] [address] [place], [address] Lymphocytes Auto (Unsp spec) [#/Vol]Ordered By: Saurabh Fernandez on 12-09-2024 Lymphocytes (Bld) [#/Vol] 3.12 10*3/uL 0.83-4.51 [facility] Lymphocytes/100 WBC Auto (Un sp spec)Ordered By: Saurabh Fernandez on 12-09-2024 Lymphocytes/100 WBC (Bld) 39.9 % 19-41 [facility] MCV (mean corpuscular volume ) determinationOrdered By: Saurabh Fernandez on 12-09-2024 MCV (RBC) [Entitic vol] 98.8 fL 81-99 [facility] Mean corpuscular hemoglobin (MCH) determinationOrdered By: Saurabh Fernandez on 12-09-2024 MCH (RBC) [Entitic mass] 32.1 pg High 27.0-32.0 [facility] Mean corpuscular hemoglobin concentration (MCHC) determinationOrdered By: Saurabh Fernandez on 12-09-2024 MCHC (RBC) [Mass/Vol] 32.5 g/dL 32-36 [facility] Mean platelet volume determi nationOrdered By: Saurabh Fernandze on 12-09-2024 Platelet mean volume (Bld) [Entitic vol] 11.4 fL 6.2-12.0 [facility] Monocyte percentageOrdered B y: Saurabh Fernandez on 12-09-2024 Monocytes/100 WBC (Bld) 7.0 % 0-10 [facility] Neutrophil percentageOrdered By: Saurabh Fernandez on 12-09-2024 Neutrophils/100 WBC (Bld) 47.7 % 47-70 [facility] Nucleated red blood cell per centageOrdered By: Saurabh Fernandez on 12-09-2024 Nucleated RBC/100 WBC (Bld) [Ratio] 0 % 0-5 [facility] Platelet countOrdered By: Nieto on 12-09-2024 Platelets (Bld) [#/Vol] 160 10*3/uL 150-450 [facility] Potassium (Unsp spec) [Mass/ Vol]Ordered By: Saurabh Fernandez on 12-09-2024 Potassium [Moles/Vol] 4.4 mmol/L 3.3-5.1 [facility] RBC Auto (Bld) [#/Vol]Ordere d By: Saurabh Fernandez on 12-09-2024 RBC (Bld) [#/Vol] 4.08 10*6/uL Low 4.2-5.4 [facility] Screening total cholesterol/ high density lipoprotein (HDL) cholesterol ratioOrdered By: Saurabh Fernandez on 12-09-2024 Cholesterol.total/Chol esterol in HDL [Mass ratio] 4.34 {ratio} [facility] Serum creatinine measurement (mass/volume)Ordered By: Saurabh Fernandez on 12-09-2024 Creatinine [Mass/Vol] 0.73 mg/dL 0.70-1.20 [facility] Serum globulin measurementOr dered By: Saurabh Fernandez on 12-09-2024 Globulin (S) [Mass/Vol] 3.0 g/dL 2.2-4.2 [facility] Serum glucose measurement (m ass/volume)Ordered By: Saurabh Fernandez on 12-09-2024 Glucose [Mass/Vol] 85 mg/dL 70-99 [facility] Serum or plasma alanine macedo otransferase (ALT) measurementOrdered By: Saurabh Fernandez on 12-09-2024 ALT [Catalytic activity/Vol] 11 U/L <35 [facility] Serum or plasma albumin tyrese urement (mass/volume)Ordered By: Saurabh Fernandez on 12-09-2024 Albumin [Mass/Vol] 3.3 g/dL Low 3.4-4.8 [facility] Serum or plasma albumin/glob ulin mass ratioOrdered By: Saurabh Fernandez on 12-09-2024 Albumin/Globulin [Mass ratio] 1.1 {ratio} 0.9-2.4 [facility] Serum or plasma alkaline elia sphatase measurementOrdered By: Saurabh Fernandez on 12-09-2024 ALP [Catalytic activity/Vol] 62 U/L 35-104 [facility] Serum or plasma calcium tyrese urement (mass/volume)Ordered By: Saurabh Fernandez on 12-09-2024 Calcium [Mass/Vol] 8.9 mg/dL 7.6-11.0 [facility] Serum or plasma cholesterol in HDL measurement (mass/volume)Ordered By: Saurabh Fernandez on 12-09-2024 Cholesterol in HDL [Mass/Vol] 47 mg/dL >40 [facility] Comment on above: National Cholesterol Education Program (NCEP) guidelines:<40 mg/dL: Low HDL-cholesterol (major risk factor for CHD)>= 60 mg/dL: High HDL-cholesterol (negative risk factor for CHD)HDL-cholesterol is affected by a number of factors, e.g. smoking, exercise, hormones, sex and age. Serum or plasma cholesterol measurement (mass/volume)Ordered By: Saurabh Fernandez on 12-09-2024 Cholesterol [Mass/Vol] 203 mg/dL High <201 [facility] Comment on above: Cholesterol level, D esirable <200 mg/dLBorderline high cholesterol 200-239 mg/dLHigh cholesterol >=240 mg/dLRecommendations of the NCEP Adult Treatment Panel for the following risk-cutoff thresholds for the [place] population. Serum or plasma urea nitroge n measurement (mass/volume)Ordered By: Saurabh Fernandez on 12-09-2024 Urea nitrogen [Mass/Vol] 16 mg/dL 4-19 [facility] Sodium levelOrdered By: Saurabh Fernandez on 12-09-2024 Sodium [Moles/Vol] 142 mmol/L 133-145 [facility] TSH DL <= 0.005 mIU/L QnOrde red By: Saurabh Fernandez on 12-09-2024 Thyroid Stimulating Hormone (TSH) 2.930 uIU/mL 0.300-4.200 [facility] Thyroid Stim Hormone (TSH)on 12-09-2024 TSH 2.930 uIU/mL Normal 0.300-4.200 [facility] Comment on above: Order Comment: 105.1 Performed By: #### L 500.4050, L500.4100, L501.9520, L100.0100 #### [facility] [address] [place], [address] Total proteinOrdered By: Ambreen Fernandez on 12-09-2024 Protein [Mass/Vol] 6.3 g/dL 5.9-8.4 [facility] Triglycerides measurementOrd ered By: Saurabh Fernandez on 12-09-2024 Triglyceride [Mass/Vol] 180 mg/dL <199 [facility] Comment on above: The drugs N-Acetylcy steine and Metamizole may falsely depress this assay. Normal range: <150 mg/dLBorderline High: 150-199 mg/dLHigh: 200-499 mg/dLVery High: >500 mg/dL White blood cell (WBC) count Ordered By: Saurabh Fernandez on 12-09-2024 WBC (Bld) [#/Vol] 7.8 10*3/uL 4.4-11.0 [facility] L506.1001on 11-22-2024 Vitamin D 25-OH 45.2 ng/mL Normal 30-100 [facility] Comment on above: Order Comment: 105.1 Result Comment: Kerline min D Status Deficiency: <20 ng/mL (50nmol/L) Insufficiency: 20-30 ng/mL (50-75 nmol/L) Sufficiency: 30-100 ng/mL (75-250 nmol/L) Toxicity: >100 ng/mL (>250 nmol/L) Performed By: #### L 500.4050, L500.4100, L501.9520, L100.0100 #### [facility] [address] [place], [place], [address] Valproate [Mass/Vol]Ordered By: Saurabh Fernandez on 11-22-2024 Valproic Acid (Depakene) Level 20 ug/mL Low 50-100 [facility] Comment on above: Valproic Acid concen trations >100 ug/mL are potentially toxic. Valproic Acid (Depakene) Lev ladonna 11-22-2024 VALPROIC ACID 20 ug/mL Low 50-100 [facility] Comment on above: Order Comment: 105.1 Result Comment: Valp roic Acid concentrations >100 ug/mL are potentially toxic. Performed By: #### L 500.4050, L500.4100, L501.9520, L100.0100 #### [facility] [address] [place], [address] Vitamin D, 25-hydroxyOrdered By: Saurabh Fernandez on 11-22-2024 Vitamin D 25-Hydroxy 45.2 ng/mL 30-100 [facility] Comment on above: Vitamin D StatusDefi ciency: <20 ng/mL (50nmol/L)Insufficiency: 20-30 ng/mL (50-75 nmol/L)Sufficiency: 30-100 ng/mL (75-250 nmol/L)Toxicity: >100 ng/mL (>250 nmol/L) BUN/creatinine ratioOrdered By: Saurabh Fernandez on 11-17-2024 Urea nitrogen/Creatinine [Mass ratio] 27.0 mg/mg High [facility]20 [facility] Basic Metabolic Profile (BMP )on 11-17-2024 BUN/CRE 27.0 RATIO High [facility]20 [facility] Comment on above: Order Comment: 105-1 Performed By: #### L 506.1001, L501.8100 #### [facility] [address] [place], [address] GFR/1.73 sq M.predicted among non-blacks MDRD (S/P/Bld) [Vol rate/Area] 78 mL/min/{1.73_m2} Normal >60 [facility] Comment on above: Order Comment: 105-1 Result Comment: mL/m in/1.73m2 CKD-EPI Creatinine Equation (2020) Performed By: #### L 506.1001, L501.8100 #### [facility] [address] [place], [address] Carbon dioxide measurementOr dered By: Saurabh Fernandez on 11-17-2024 CO2 [Moles/Vol] 25.7 mmol/L Normal 22.0-29.0 [facility] Comment on above: Order Comment: 105-1 Performed By: #### L 506.1001, L501.8100 #### [facility] [address] [place], [address] Chloride measurementOrdered By: Saurabh Fernandez on 11-17-2024 Chloride [Moles/Vol] 107 mmol/L Normal 96-108 [facility] Comment on above: Order Comment: 105-1 Performed By: #### L 506.1001, L501.8100 #### [facility] [address] [place], [address] GFR/1.73 sq M.predicted layne g non-blacks MDRD (S/P/Bld) [Vol rate/Area]Ordered By: Saurabh Fernandez on 11-17-2024 Estimated GFR (MDRD) Non-Af Amer 78 >60 [facility] Comment on above: mL/min/1.73m2 CKD-EP I Creatinine Equation (2020) Serum glucose measurement (m ass/volume)Ordered By: Saurabh Fernandez on 11-17-2024 Glucose [Mass/Vol] 83 mg/dL Normal 70-99 [facility] Comment on above: Order Comment: 105-1 Performed By: #### L 506.1001, L501.8100 #### [facility] [address] [place], [address] Serum or plasma anion gap de termination (moles/volume)Ordered By: Saurabh Fernandez on 11-17-2024 Anion gap [Moles/Vol] 9 mmol/L Normal 5-15 [facility] Comment on above: Order Comment: 105-1 Performed By: #### L 506.1001, L501.8100 #### [facility] [address] [place], [address] Serum or plasma calcium tyrese urement (mass/volume)Ordered By: Saurabh Fernandez on 11-17-2024 Calcium [Mass/Vol] 8.4 mg/dL Normal 7.6-11.0 [facility] Comment on above: Order Comment: 105- Performed By: #### L 506.1001, L501.8100 #### [facility] [address] [place], [address] Serum or plasma creatinine m easurement (moles/volume)Ordered By: Saurabh Fernandez on 11-17-2024 Creatinine [Mass/Vol] 0.8 mg/dL Normal 0.6-1.0 [facility] Comment on above: Order Comment: 105- Performed By: #### L 506.1001, L501.8100 #### [facility] [address] [place], [address] Serum or plasma potassium me asurementOrdered By: Saurabh Fernandez on 11-17-2024 Potassium [Moles/Vol] 4.5 mmol/L Normal 3.3-5.1 [facility] Comment on above: Hemolysis present, R esults could be affected. Order Comment: 105- Result Comment: Hemo lysis present, Results??could be affected. ?? Performed By: #### L 506.1001, L501.8100 #### [facility] [address] [place], [address] Serum or plasma sodium measu rement (moles/volume)Ordered By: Saurabh Fernandez on 11-17-2024 Sodium [Moles/Vol] 141 mmol/L Normal 133-145 [facility] Comment on above: Order Comment: 105-1 Performed By: #### L 506.1001, L501.8100 #### [facility] [address] [place], [address] Serum or plasma urea nitroge n measurement (mass/volume)Ordered By: Saurabh Fernandez on 11-17-2024 Urea nitrogen [Mass/Vol] 21 mg/dL High 4-19 [facility] Comment on above: Order Comment: 105-1 Performed By: #### L 506.1001, L501.8100 #### [facility] [address] [place], [address] Basic Metabolic Profile (BMP )on 11-10-2024 BUN/CRE 27.0 RATIO High 10-20 [facility] Comment on above: Order Comment: 105.1 Performed By: #### L 500.4050, L500.4100, L501.9520, L100.0100 #### [facility] [address] [place], [address] CA,Total 8.7 mg/dL Normal 8.5-10.1 [facility] Comment on above: Order Comment: 105.1 Performed By: #### L 500.4050, L500.4100, L501.9520, L100.0100 #### [facility] [address] [place], [address] Chloride [Moles/Vol] 118 mmol/L High 98-107 [facility] Comment on above: Order Comment: 105.1 Performed By: #### L 500.4050, L500.4100, L501.9520, L100.0100 #### [facility] [address] [place], [address] CO2 [Moles/Vol] 31.0 mmol/L Normal 21.0-32.0 [facility] Comment on above: Order Comment: 105.1 Performed By: #### L 500.4050, L500.4100, L501.9520, L100.0100 #### [facility] [address] [place], [address] Creatinine [Mass/Vol] 0.81 mg/dL Normal 0.55-1.02 [facility] Comment on above: Order Comment: 105.1 Result Comment: The validity of the calculated GFR GFRAA in patients over 70 years has not been determined. Clinical correlation is essential. Performed By: #### L 500.4050, L500.4100, L501.9520, L100.0100 #### [facility] [address] [place], [address] EST GFR - AA 87 mL/min Normal >60 [facility] Comment on above: Order Comment: 105.1 Result Comment: Afri can [place] GFR Calc Performed By: #### L 500.4050, L500.4100, L501.9520, L100.0100 #### [facility] [address] [place], [address] GAP 2 Low 5-15 [facility] Comment on above: Order Comment: 105.1 Performed By: #### L 500.4050, L500.4100, L501.9520, L100.0100 #### [facility] [address] [place], [address] GFR/1.73 sq M.predicted among non-blacks MDRD (S/P/Bld) [Vol rate/Area] 72 mL/min/{1.73_m2} Normal >60 [facility] Comment on above: Order Comment: 105.1 Result Comment: Non- GFR Calc Performed By: #### L 500.4050, L500.4100, L501.9520, L100.0100 #### [facility] [address] [place], [address] Glucose [Mass/Vol] 96 mg/dL Normal 74-106 [facility] Comment on above: Order Comment: 105.1 Performed By: #### L 500.4050, L500.4100, L501.9520, L100.0100 #### [facility] [address] [place], [address] Potassium [Moles/Vol] 3.9 mmol/L Normal 3.5-5.1 [facility] Comment on above: Order Comment: 105.1 Performed By: #### L 500.4050, L500.4100, L501.9520, L100.0100 #### [facility] [address] [place], [address] Sodium [Moles/Vol] 151 mmol/L High 136-145 [facility] Comment on above: Order Comment: 105.1 Performed By: #### L 500.4050, L500.4100, L501.9520, L100.0100 #### [facility] [address] [place], [address] Urea nitrogen [Mass/Vol] 22 mg/dL High 7-18 [facility] Comment on above: Order Comment: 105.1 Performed By: #### L 500.4050, L500.4100, L501.9520, L100.0100 #### [facility] [address] [place], [address] Blood urea nitrogen (BUN)/cr eatinine ratioOrdered By: Saurabh Fernandez on 11-10-2024 Urea nitrogen/Creatinine [Mass ratio] 27.0 mg/mg High 10-20 [facility] CBC-Complete Blood Cnt No Di ffon 11-10-2024 Erythrocyte distribution width (RBC) [Ratio] 14.4 % Normal 11.6-14.6 [facility] Comment on above: Order Comment: 105.1 Performed By: #### L 500.4050, L500.4100, L501.9520, L100.0100 #### [facility] [address] [place], [address] Hematocrit (Bld) [Volume fraction] 41.3 % Normal 37-47 [facility] Comment on above: Order Comment: 105.1 Performed By: #### L 500.4050, L500.4100, L501.9520, L100.0100 #### [facility] [address] [place], [address] Hemoglobin (Bld) [Mass/Vol] 12.5 g/dL Normal 12.0-15.0 [facility] Comment on above: Order Comment: 105.1 Performed By: #### L 500.4050, L500.4100, L501.9520, L100.0100 #### [facility] [address] [place], [address] MCH (RBC) [Entitic mass] 30.9 pg Normal 27.0-32.0 [facility] Comment on above: Order Comment: 105.1 Performed By: #### L 500.4050, L500.4100, L501.9520, L100.0100 #### [facility] [address] [place], [address] MCHC (RBC) [Mass/Vol] 30.3 g/dL Low 32-36 [facility] Comment on above: Order Comment: 105.1 Performed By: #### L 500.4050, L500.4100, L501.9520, L100.0100 #### [facility] [address] [place], [address] MCV (RBC) [Entitic vol] 102.0 fL High 81-99 [facility] Comment on above: Order Comment: 105.1 Performed By: #### L 500.4050, L500.4100, L501.9520, L100.0100 #### [facility] [address] [place], [address] Platelet mean volume (Bld) [Entitic vol] 10.0 fL Normal 6.2-12.0 [facility] Comment on above: Order Comment: 105.1 Performed By: #### L 500.4050, L500.4100, L501.9520, L100.0100 #### [facility] [address] [place], [address] Platelets (Bld) [#/Vol] 351 10*3/uL Normal 150-450 [facility] Comment on above: Order Comment: 105.1 Performed By: #### L 500.4050, L500.4100, L501.9520, L100.0100 #### [facility] [address] [place], [address] RBC (Bld) [#/Vol] 4.05 10*6/uL Low 4.2-5.4 [facility] Comment on above: Order Comment: 105.1 Performed By: #### L 500.4050, L500.4100, L501.9520, L100.0100 #### [facility] [address] [place], [address] RDW SD 53.7 fl High 35.1-43.9 [facility] Comment on above: Order Comment: 105.1 Performed By: #### L 500.4050, L500.4100, L501.9520, L100.0100 #### [facility] [address] [place], [address] WBC (Bld) [#/Vol] 8.5 10*3/uL Normal 4.4-11.0 [facility] Comment on above: Order Comment: 105.1 Performed By: #### L 500.4050, L500.4100, L501.9520, L100.0100 #### [facility] [address] [place], [address] Carbon dioxide measurementOr dered By: Saurabh Fernandez on 11-10-2024 CO2 [Moles/Vol] 31.0 mmol/L 21.0-32.0 [facility] Chloride measurementOrdered By: Saurabh Fernandez on 11-10-2024 Chloride [Moles/Vol] 118 mmol/L High 98-107 [facility] Erythrocyte distribution wid th (RBC) [Ratio]Ordered By: Saurabh Fernandez on 11-10-2024 Erythrocyte distribution width (RBC) [Entitic vol] 53.7 fL High 35.1-43.9 [facility] Erythrocyte distribution wid th ratioOrdered By: Saurabh Fernandez on 11-10-2024 Erythrocyte distribution width (RBC) [Ratio] 14.4 % 11.6-14.6 [facility] Estimated glomerular filtrat ion rate (GFR) AmericanOrdered By: Saurabh Fernandez on 11-10-2024 Estimated GFR (MDRD) Amer 87 mL/min >60 [facility] Comment on above: GFR Calc Glomerular filtration rate ( GFR) estimationOrdered By: Saurabh Fernandez on 11-10-2024 Estimated GFR (MDRD) Non-Af Amer 72 mL/min >60 [facility] Comment on above: Non- GFR Calc Glucose measurementOrdered B y: Saurabh Fernandez on 11-10-2024 Glucose [Mass/Vol] 96 mg/dL 74-106 [facility] Hematocrit Auto (Bld) [Volum e fraction]Ordered By: Saurabh Fernandez on 11-10-2024 Hematocrit (Bld) [Volume fraction] 41.3 % 37-47 [facility] Hemoglobin measurementOrdere d By: Saurabh Fernandez on 11-10-2024 Hemoglobin (Bld) [Mass/Vol] 12.5 g/dL 12.0-15.0 [facility] MCV (mean corpuscular volume ) determinationOrdered By: Saurabh Fernandez on 11-10-2024 MCV (RBC) [Entitic vol] 102.0 fL High 81-99 [facility] Mean corpuscular hemoglobin (MCH) determinationOrdered By: Saurabh Fernandez on 11-10-2024 MCH (RBC) [Entitic mass] 30.9 pg 27.0-32.0 [facility] Mean corpuscular hemoglobin concentration (MCHC) determinationOrdered By: Saurabh Fernandez on 11-10-2024 MCHC (RBC) [Mass/Vol] 30.3 g/dL Low 32-36 [facility] Mean platelet volume determi nationOrdered By: Saurabh Fernandez on 11-10-2024 Platelet mean volume (Bld) [Entitic vol] 10.0 fL 6.2-12.0 [facility] Platelet countOrdered By: Nieto on 11-10-2024 Platelets (Bld) [#/Vol] 351 10*3/uL 150-450 [facility] Potassium measurementOrdered By: Saurabh Fernandez on 11-10-2024 Potassium [Moles/Vol] 3.9 mmol/L 3.5-5.1 [facility] RBC Auto (Bld) [#/Vol]Ordere d By: Saurabh Fernandez on 11-10-2024 RBC (Bld) [#/Vol] 4.05 10*6/uL Low 4.2-5.4 [facility] Serum anion gap measurementO rdered By: Saurabh Fernandez on 11-10-2024 Anion gap [Moles/Vol] 2 mmol/L Low 5-15 [facility] Serum or plasma calcium tyrese urement (mass/volume)Ordered By: Saurabh Fernandez on 11-10-2024 Calcium [Mass/Vol] 8.7 mg/dL 8.5-10.1 [facility] Serum or plasma creatinine m easurement (mass/volume)Ordered By: Saurabh Fernandez on 11-10-2024 Creatinine [Mass/Vol] 0.81 mg/dL 0.55-1.02 [facility] Comment on above: The validity of the calculated GFR & GFRAA in patients over 70 years has not been determined. Clinical correlation is essential. Serum or plasma urea nitroge n measurement (mass/volume)Ordered By: Saurabh Fernandez on 11-10-2024 Urea nitrogen [Mass/Vol] 22 mg/dL High 7-18 [facility] Sodium levelOrdered By: Saurabh Fernandez on 11-10-2024 Sodium [Moles/Vol] 151 mmol/L High 136-145 [facility] White blood cell (WBC) count Ordered By: Saurabh Fernandez on 11-10-2024 WBC (Bld) [#/Vol] 8.5 10*3/uL 4.4-11.0 [facility] Absolute neutrophil countOrd ered By: Saurabh Fernandez on 09-16-2024 Neutrophils (Bld) [#/Vol] 3.3 10*3/uL 2.0-7.7 [facility] Albumin to globulin ratioOrd ered By: Saurabh Fernandez on 09-16-2024 Albumin/Globulin [Mass ratio] 0.7 {ratio} Low 0.9-2.4 [facility] Basophil percentageOrdered B y: Saurabh Fernandez on 09-16-2024 Basophils/100 WBC (Bld) 1.0 % 0-1 [facility] Bilirubin, totalOrdered By: Saurabh Fernandez on 09-16-2024 Bilirubin [Mass/Vol] 0.50 mg/dL 0.20-1.00 [facility] Comment on above: For patients on eltr ombopag therapy, use of Dimension Van Meter TBIL is not recommended. Blood urea nitrogen (BUN)/cr eatinine ratioOrdered By: Saurabh Fernandez on 09-16-2024 Urea nitrogen/Creatinine [Mass ratio] 30.8 mg/mg High 10-20 [facility] CBC W/Diff, Automatedon 08-23 Absolute Lymph 3.46 X10 3/uL Normal 0.83-4.51 [facility] Comment on above: Order Comment: 105-1 Performed By: #### L 506.1001, L501.8100 #### [facility] [address] [place], [address] Absolute Neut 3.3 X10 3/uL Normal 2.0-7.7 [facility] Comment on above: Order Comment: 105-1 Performed By: #### L 506.1001, L501.8100 #### [facility] [address] [place], [address] Basophils/100 WBC (Bld) 1.0 % Normal 0-1 [facility] Comment on above: Order Comment: 105-1 Performed By: #### L 506.1001, L501.8100 #### [facility] [address] [place], [address] Eosinophils/100 WBC (Bld) 4.6 % Normal 0-5 [facility] Comment on above: Order Comment: 105-1 Performed By: #### L 506.1001, L501.8100 #### [facility] [address] [place], [address] Erythrocyte distribution width (RBC) [Ratio] 13.3 % Normal 11.6-14.6 [facility] Comment on above: Order Comment: 105-1 Performed By: #### L 506.1001, L501.8100 #### [facility] [address] [place], [address] Hematocrit (Bld) [Volume fraction] 46.4 % Normal 37-47 [facility] Comment on above: Order Comment: 105-1 Performed By: #### L 506.1001, [id number] #### [facility] [address] [place], [address] Hemoglobin (Bld) [Mass/Vol] 15.0 g/dL Normal 12.0-15.0 [facility] Comment on above: Order Comment: 105-1 Performed By: #### L 506.1001, L501.8100 #### [facility] [address] [place], [address] IG% 0.400 Normal 0.0-0.9 [facility] Comment on above: Order Comment: 105-1 Result Comment: IG% - Immature Granulocytes (promyelocytes, myelocytes and metamyelocytes) > 1% indicates that a LEFT SHIFT is Present. Performed By: #### L 506.1001, L501.8100 #### [facility] [address] [place], [address] Lymphocytes/100 WBC (Bld) 44.1 % High 19-41 [facility] Comment on above: Order Comment: 105-1 Performed By: #### L 506.1001, L501.8100 #### [facility] [address] [place], [address] MCH (RBC) [Entitic mass] 32.1 pg High 27.0-32.0 [facility] Comment on above: Order Comment: 105-1 Performed By: #### L 506.1001, L501.8100 #### [facility] [address] [place], [address] MCHC (RBC) [Mass/Vol] 32.3 g/dL Normal 32-36 [facility] Comment on above: Order Comment: 105-1 Performed By: #### L 506.1001, L501.8100 #### [facility] [address] [place], [address] MCV (RBC) [Entitic vol] 99.1 fL High 81-99 [facility] Comment on above: Order Comment: 105-1 Performed By: #### L 506.1001, L501.8100 #### [facility] [address] [place], [address] Monocytes/100 WBC (Bld) 7.7 % Normal 0-10 [facility] Comment on above: Order Comment: 105-1 Performed By: #### L 506.1001, L501.8100 #### [facility] [address] [place], [address] Neutrophils/100 WBC (Bld) 42.2 % Low 47-70 [facility] Comment on above: Order Comment: 105-1 Performed By: #### L 506.1001, L501.8100 #### [facility] [address] [place], [address] Nucleated RBC (Bld) [#/Vol] 0 10*3/uL Normal 0-5 [facility] Comment on above: Order Comment: 105-1 Performed By: #### L 506.1001, L501.8100 #### [facility] [address] [place], [address] Platelet mean volume (Bld) [Entitic vol] 11.6 fL Normal 6.2-12.0 [facility] Comment on above: Order Comment: 105-1 Performed By: #### L 506.1001, L501.8100 #### [facility] [address] [place], [address] Platelets (Bld) [#/Vol] 209 10*3/uL Normal 150-450 [facility] Comment on above: Order Comment: 105-1 Performed By: #### L 506.1001, L501.8100 #### [facility] [address] [place], [address] RBC (Bld) [#/Vol] 4.68 10*6/uL Normal 4.2-5.4 [facility] Comment on above: Order Comment: 105-1 Performed By: #### L 506.1001, L501.8100 #### [facility] [address] [place], [address] RDW SD 48.9 fl High 35.1-43.9 [facility] Comment on above: Order Comment: 105-1 Performed By: #### L 506.1001, [id number] #### [facility] [address] [place], [address] WBC (Bld) [#/Vol] 7.8 10*3/uL Normal 4.4-11.0 [facility] Comment on above: Order Comment: 105-1 Performed By: #### L 506.1001, L501.8100 #### [facility] [address] [place], [address] Carbon dioxide measurementOr dered By: Saurabh Fernandez on 09-16-2024 CO2 [Moles/Vol] 31.0 mmol/L 21.0-32.0 [facility] Chloride measurementOrdered By: Saurabh Fernandez on 09-16-2024 Chloride [Moles/Vol] 109 mmol/L High 98-107 [facility] Comprehensive Metabolic Prof ilon 09-16-2024 Albumin [Mass/Vol] 2.8 g/dL Low 3.2-5.0 [facility] Comment on above: Order Comment: 105-1 Performed By: #### L 506.1001, L501.8100 #### [facility] [address] [place], [address] Albumin/Globulin [Mass ratio] 0.7 {ratio} Low 0.9-2.4 [facility] Comment on above: Order Comment: 105-1 Performed By: #### L 506.1001, L501.8100 #### [facility] [address] [place], [address] ALK P 69 U/L Normal 45-117 [facility] Comment on above: Order Comment: 105-1 Performed By: #### L 506.1001, L501.8100 #### [facility] [address] [place], [address] ALT [Catalytic activity/Vol] 21 U/L Normal 13-56 [facility] Comment on above: Order Comment: 105-1 Performed By: #### L 506.1001, L501.8100 #### [facility] [address] [place], [address] AST [Catalytic activity/Vol] 17 U/L Normal 15-37 [facility] Comment on above: Order Comment: 105-1 Performed By: #### L 506.1001, L501.8100 #### [facility] [address] [place], [address] Bilirubin [Mass/Vol] 0.50 mg/dL Normal 0.20-1.00 [facility] Comment on above: Order Comment: 105-1 Result Comment: For patients on eltrombopag therapy, use of Dimension Van Meter TBIL is not recommended. Performed By: #### L 506.1001, L501.8100 #### [facility] [address] [place], [address] BUN/CRE 30.8 RATIO High 10-20 [facility] Comment on above: Order Comment: 105-1 Performed By: #### L 506.1001, L501.8100 #### [facility] [address] [place], [address] CA,Total 8.7 mg/dL Normal 8.5-10.1 [facility] Comment on above: Order Comment: 105-1 Performed By: #### L 506.1001, L501.8100 #### [facility] [address] [place], [address] Chloride [Moles/Vol] 109 mmol/L High 98-107 [facility] Comment on above: Order Comment: 105-1 Performed By: #### L 506.1001, L501.8100 #### [facility] [address] [place], [address] CO2 [Moles/Vol] 31.0 mmol/L Normal 21.0-32.0 [facility] Comment on above: Order Comment: 105-1 Performed By: #### L 506.1001, L501.8100 #### [facility] [address] [place], [address] Creatinine [Mass/Vol] 1.04 mg/dL High 0.55-1.02 [facility] Comment on above: Order Comment: 105-1 Result Comment: The validity of the calculated GFR GFRAA in patients over 70 years has not been determined. Clinical correlation is essential. Performed By: #### L 506.1001, L501.8100 #### [facility] [address] [place], [address] EST GFR - AA 65 mL/min Normal >60 [facility] Comment on above: Order Comment: 105-1 Result Comment: Afri can [place] GFR Calc Performed By: #### L 506.1001, L501.8100 #### [facility] [address] [place], [address] GAP 2 Low 5-15 [facility] Comment on above: Order Comment: 105-1 Performed By: #### L 506.1001, L501.8100 #### [facility] [address] [place], [address] GFR/1.73 sq M.predicted among non-blacks MDRD (S/P/Bld) [Vol rate/Area] 54 mL/min/{1.73_m2} Low >60 [facility] Comment on above: Order Comment: 105-1 Result Comment: Non- GFR Calc Performed By: #### L 506.1001, L501.8100 #### [facility] [address] [place], [address] Globulin (S) [Mass/Vol] 4.0 g/dL Normal 2.2-4.2 [facility] Comment on above: Order Comment: 105-1 Performed By: #### L 506.1001, L501.8100 #### [facility] [address] [place], [address] Glucose [Mass/Vol] 89 mg/dL Normal 74-106 [facility] Comment on above: Order Comment: 105-1 Performed By: #### L 506.1001, [id number] #### [facility] [address] [place], [address] Potassium [Moles/Vol] 4.4 mmol/L Normal 3.5-5.1 [facility] Comment on above: Order Comment: 105-1 Performed By: #### L 506.1001, [id number] #### [facility] [address] [place], [address] Sodium [Moles/Vol] 142 mmol/L Normal 136-145 [facility] Comment on above: Order Comment: 105-1 Performed By: #### L 506.1001, L501.8100 #### [facility] [address] [place], [address] T PROT 6.8 g/dL Normal 6.4-8.2 [facility] Comment on above: Order Comment: 105-1 Performed By: #### L 506.1001, L501.8100 #### [facility] [address] [place], [place], [address] Urea nitrogen [Mass/Vol] 32 mg/dL High 7-18 [facility] Comment on above: Order Comment: 105-1 Performed By: #### L 506.1001, [id number] #### [facility] [address] [place], [place], [address] Eosinophil percentageOrdered By: Saurabh Fernandez on 09-16-2024 Eosinophils/100 WBC (Bld) 4.6 % 0-5 [facility] Erythrocyte distribution wid th (RBC) [Ratio]Ordered By: Saurabh Fernandez on 09-16-2024 Erythrocyte distribution width (RBC) [Entitic vol] 48.9 fL High 35.1-43.9 [facility] Erythrocyte distribution wid th ratioOrdered By: Saurabh Fernandez on 09-16-2024 Erythrocyte distribution width (RBC) [Ratio] 13.3 % 11.6-14.6 [facility] Estimated glomerular filtrat ion rate (GFR) AmericanOrdered By: Saurabh Fernandez on 09-16-2024 Estimated GFR (MDRD) Amer 65 mL/min >60 [facility] Comment on above: GFR Calc Glomerular filtration rate ( GFR) estimationOrdered By: Saurabh Fernandez on 09-16-2024 Estimated GFR (MDRD) Non-Af Amer 54 mL/min Low >60 [facility] Comment on above: Non- GFR Calc Glucose measurementOrdered B y: Saurabh Fernandez on 09-16-2024 Glucose [Mass/Vol] 89 mg/dL 74-106 [facility] Hematocrit Auto (Bld) [Volum e fraction]Ordered By: Saurabh Fernandez on 09-16-2024 Hematocrit (Bld) [Volume fraction] 46.4 % 37-47 [facility] Hemoglobin measurementOrdere d By: Saurabh Fernandez on 09-16-2024 Hemoglobin (Bld) [Mass/Vol] 15.0 g/dL 12.0-15.0 [facility] High density lipoprotein (HD L) measurementOrdered By: Saurabh Fernandez on 09-16-2024 Cholesterol in HDL [Mass/Vol] 52 mg/dL >40 [facility] Comment on above: The drugs N-Acetylcy steine and Metamizole may falsely depress this assay. Reference Range HDL <40 mg/dL Low HDL Cholesterol HDL >or= 60 mg/dL High HDL Cholesterol Immature granulocytes/100 WB C Auto (Bld)Ordered By: Saurabh Fernandez on 09-16-2024 Immature granulocytes/100 WBC (Bld) 0.400 % 0.0-0.9 [facility] Comment on above: IG% - Immature Granu locytes (promyelocytes, myelocytes and metamyelocytes) > 1% indicates that a LEFT SHIFT is Present. Laboratory - Chemistry and C hemistry - challengeOrdered By: Saurabh Fernandez on 09-16-2024 AST [Catalytic activity/Vol] 17 U/L 15-37 [facility] Lipid Profileon 09-16-2024 Cholesterol [Mass/Vol] 190 mg/dL Normal 200 [facility] Comment on above: Order Comment: 105-1 Result Comment: <200 mg/dL Desirable 200-240 mg/dL Borderline >240 mg/dL High Risk Performed By: #### L 506.1001, L501.8100 #### [facility] [address] [place], [address] Cholesterol in HDL [Mass/Vol] 52 mg/dL Normal [facility] Comment on above: Order Comment: 105-1 Result Comment: The drugs N-Acetylcysteine and Metamizole may falsely depress this assay. Reference Range HDL <40 mg/dL Low HDL Cholesterol HDL >or= 60 mg/dL High HDL Cholesterol Performed By: #### L 506.1001, L501.8100 #### [facility] [address] [place], [address] Cholesterol in LDL [Mass/Vol] 113 mg/dL Normal 0-130 [facility] Comment on above: Order Comment: 105-1 Performed By: #### L 506.1001, L501.8100 #### [facility] [address] [place], [place], [id number] [phone] Cholesterol in VLDL [Mass/Vol] 25 mg/dL Normal 5-40 [facility] Comment on above: Order Comment: 105-1 Performed By: #### L 506.1001, L501.8100 #### [facility] [address] [place], [address] Triglyceride [Mass/Vol] 125 mg/dL Normal [facility] Comment on above: Order Comment: 105-1 Result Comment: The drugs N-Acetylcysteine and Metamizole may falsely depress this assay. Serum Triglycerides Reference Interval Normal <150 mg/dL Borderline high 150 - 199 mg/dL High 200 - 499 mg/dL Very High > or = 500 mg/dL Performed By: #### L 506.1001, L501.8100 #### [facility] [address] [place], [place], [id number] Low density lipoprotein (LDL ) cholesterol measurementOrdered By: Saurabh Fernandez on 09-16-2024 Cholesterol in LDL [Mass/Vol] 113 mg/dL 0-130 [facility] Lymphocytes Auto (Unsp spec) [#/Vol]Ordered By: Saurabh Fernandez on 09-16-2024 Lymphocytes (Bld) [#/Vol] 3.46 10*3/uL 0.83-4.51 [facility] Lymphocytes/100 WBC Auto (Un sp spec)Ordered By: Saurabh Fernandez on 09-16-2024 Lymphocytes/100 WBC (Bld) 44.1 % High 19-41 [facility] MCV (mean corpuscular volume ) determinationOrdered By: Saurahb Fernandez on 09-16-2024 MCV (RBC) [Entitic vol] 99.1 fL High 81-99 [facility] Mean corpuscular hemoglobin (MCH) determinationOrdered By: Saurabh Fernandez on 09-16-2024 MCH (RBC) [Entitic mass] 32.1 pg High 27.0-32.0 [facility] Mean corpuscular hemoglobin concentration (MCHC) determinationOrdered By: Saurabh Fernandez on 09-16-2024 MCHC (RBC) [Mass/Vol] 32.3 g/dL 32-36 [facility] Mean platelet volume determi nationOrdered By: Saurabh Fernandez on 09-16-2024 Platelet mean volume (Bld) [Entitic vol] 11.6 fL 6.2-12.0 [facility] Monocyte percentageOrdered B y: Saurabh Fernandez on 09-16-2024 Monocytes/100 WBC (Bld) 7.7 % 0-10 [facility] Neutrophil percentageOrdered By: Saurabh Fernandez on 09-16-2024 Neutrophils/100 WBC (Bld) 42.2 % Low 47-70 [facility] Nucleated red blood cell per centageOrdered By: Saurabh Fernandez on 09-16-2024 Nucleated RBC/100 WBC (Bld) [Ratio] 0 % 0-5 [facility] Platelet countOrdered By: Nieto on 09-16-2024 Platelets (Bld) [#/Vol] 209 10*3/uL 150-450 [facility] Potassium measurementOrdered By: Saurabh Fernandez on 09-16-2024 Potassium [Moles/Vol] 4.4 mmol/L 3.5-5.1 [facility] RBC Auto (Bld) [#/Vol]Ordere d By: Saurabh Fernandez on 09-16-2024 RBC (Bld) [#/Vol] 4.68 10*6/uL 4.2-5.4 [facility] Serum anion gap measurementO rdered By: Saurabh Fernandez on 09-16-2024 Anion gap [Moles/Vol] 2 mmol/L Low 5-15 [facility] Serum globulin measurementOr dered By: Saurabh Fernandez on 09-16-2024 Globulin (S) [Mass/Vol] 4.0 g/dL 2.2-4.2 [facility] Serum or plasma alanine macedo otransferase (ALT) measurementOrdered By: Saurabh Fernandez on 09-16-2024 ALT [Catalytic activity/Vol] 21 U/L 13-56 [facility] Serum or plasma albumin tyrese urement (mass/volume)Ordered By: Saurabh Fernandez on 09-16-2024 Albumin [Mass/Vol] 2.8 g/dL Low 3.2-5.0 [facility] Serum or plasma alkaline elia sphatase measurementOrdered By: Saurabh Fernandez on 09-16-2024 ALP [Catalytic activity/Vol] 69 U/L 45-117 [facility] Serum or plasma calcium tyrese urement (mass/volume)Ordered By: Saurabh Fernandez on 09-16-2024 Calcium [Mass/Vol] 8.7 mg/dL 8.5-10.1 [facility] Serum or plasma cholesterol measurement (mass/volume)Ordered By: Saurabh Fernandez on 09-16-2024 Cholesterol [Mass/Vol] 190 mg/dL <200 [facility] Comment on above: <200 mg/dL Desirable 200-240 mg/dL Borderline >240 mg/dL High Risk Serum or plasma creatinine m easurement (mass/volume)Ordered By: Saurabh Fernandez on 09-16-2024 Creatinine [Mass/Vol] 1.04 mg/dL High 0.55-1.02 [facility] Comment on above: The validity of the calculated GFR & GFRAA in patients over 70 years has not been determined. Clinical correlation is essential. Serum or plasma urea nitroge n measurement (mass/volume)Ordered By: Saurabh Fernandez on 09-16-2024 Urea nitrogen [Mass/Vol] 32 mg/dL High 7-18 [facility] Sodium levelOrdered By: Saurabh Fernandez on 09-16-2024 Sodium [Moles/Vol] 142 mmol/L 136-145 [facility] TSH QnOrdered By: Saurabh handy on 09-16-2024 Thyroid Stimulating Hormone (TSH) 2.080 uIU/mL 0.358-3.740 [facility] Thyroid Stim Hormone (TSH)on 09-16-2024 TSH 2.080 uIU/mL Normal 0.358-3.740 [facility] Comment on above: Order Comment: 105-1 Performed By: #### L 506.1001, L501.8100 #### [facility] [address] [place], [place], [address] Total proteinOrdered By: Ambreen Fernandez on 09-16-2024 Protein [Mass/Vol] 6.8 g/dL 6.4-8.2 [facility] Triglycerides measurementOrd ered By: Saurabh Fernandez on 09-16-2024 Triglyceride [Mass/Vol] 125 mg/dL <199 [facility] Comment on above: The drugs N-Acetylcy steine and Metamizole may falsely depress this assay.Serum Triglycerides Reference Interval Normal <150 mg/dL Borderline high 150 - 199 mg/dL High 200 - 499 mg/dL Very High > or = 500 mg/dL Very low density lipoprotein (VLDL) cholesterol measurementOrdered By: Saurabh Fenrandez on 09-16-2024 VLDL Cholesterol 25 mg/dL 5-40 [facility] White blood cell (WBC) count Ordered By: Saurabh Fernandez on 09-16-2024 WBC (Bld) [#/Vol] 7.8 10*3/uL 4.4-11.0 [facility] 98-HH-Exlbzyx DOrdered By: Migue Fernandez on 08-30-2024 Vitamin D 25-Hydroxy 69.9 ng/mL [facility] Comment on above: Vitamin D 25(OH) Sta tus Range Deficiency <20 ng/mL (50nmol/L) Insufficiency 20 - 30 ng/mL (50 - 75 nmol/L) Sufficiency 30 - 100 ng/mL (75 - 250 nmol/L) Toxicity >100 ng/mL (>250 nmol/L) Valproate levelOrdered By: Migue Fernandez on 08-30-2024 Valproic Acid (Depakene) Level 26 ug/mL Low 50-100 [facility] Valproic Acid (Depakene) Lev ladonna 08-30-2024 VALPROIC ACID 26 ug/mL Low 50-100 [facility] Comment on above: Order Comment: 105-1 Performed By: #### L 506.1001, L501.8100 #### [facility] [address] [place], [place], [address] Vitamin D,25 Hydroxyon 08-30 Vitamin D 25-OH 69.9 ng/mL Normal [facility] Comment on above: Order Comment: 105-1 Result Comment: Kerline min D 25(OH) Status Range Deficiency <20 ng/mL (50nmol/L) Insufficiency 20 - 30 ng/mL (50 - 75 nmol/L) Sufficiency 30 - 100 ng/mL (75 - 250 nmol/L) Toxicity >100 ng/mL (>250 nmol/L) Performed By: #### L 506.1001, [id number] #### [facility] [address] [place], [address] Thyroid Stim Hormone (TSH)on 08-09-2024 TSH 1.590 uIU/mL Normal 0.358-3.740 [facility] Comment on above: Order Comment: 105-1 Performed By: #### L 506.1001, [id number] #### [facility] [address] [place], [address] CBC W/Diff, Automatedon 10-0 Absolute Lymph 3.04 X10 3/uL Normal 0.83-4.51 [facility] Comment on above: Order Comment: 105-1 Performed By: #### L 506.1001, [id number] #### [facility] [address] [place], [address] Absolute Neut 3.0 X10 3/uL Normal 2.0-7.7 [facility] Comment on above: Order Comment: 105-1 Performed By: #### L 506.1001, [id number] #### [facility] [address] [place], [address] Basophils/100 WBC (Bld) 0.6 % Normal 0-1 [facility] Comment on above: Order Comment: 105-1 Performed By: #### L 506.1001, [id number] #### [facility] [address] [place], [address] Eosinophils/100 WBC (Bld) 4.4 % Normal 0-5 [facility] Comment on above: Order Comment: 105-1 Performed By: #### L 506.1001, [id number] #### [facility] [address] [place], [address] Erythrocyte distribution width (RBC) [Ratio] 13.1 % Normal 11.6-14.6 [facility] Comment on above: Order Comment: 105-1 Performed By: #### L 506.1001, [id number] #### [facility] [address] [place], [address] Hematocrit (Bld) [Volume fraction] 44.5 % Normal 37-47 [facility] Comment on above: Order Comment: 105-1 Performed By: #### L 506.1001, [id number] #### [facility] [address] [place], [address] Hemoglobin (Bld) [Mass/Vol] 14.0 g/dL Normal 12.0-15.0 [facility] Comment on above: Order Comment: 105-1 Performed By: #### L 506.1001, [id number] #### [facility] [address] [place], [address] IG% 0.300 Normal 0.0-0.9 [facility] Comment on above: Order Comment: 105-1 Result Comment: IG% - Immature Granulocytes (promyelocytes, myelocytes and metamyelocytes) > 1% indicates that a LEFT SHIFT is Present. Performed By: #### L 506.1001, L501.8100 #### [facility] [address] [place], [address] Lymphocytes/100 WBC (Bld) 43.3 % High 19-41 [facility] Comment on above: Order Comment: 105-1 Performed By: #### L 506.1001, [id number] #### [facility] [address] [place], [address] MCH (RBC) [Entitic mass] 31.5 pg Normal 27.0-32.0 [facility] Comment on above: Order Comment: 105-1 Performed By: #### L 506.1001, [id number] #### [facility] [address] [place], [address] MCHC (RBC) [Mass/Vol] 31.5 g/dL Low 32-36 [facility] Comment on above: Order Comment: 105-1 Performed By: #### L 506.1001, [id number] #### [facility] [address] [place], [address] MCV (RBC) [Entitic vol] 100.0 fL High 81-99 [facility] Comment on above: Order Comment: 105-1 Performed By: #### L 506.1001, [id number] #### [facility] [address] [place], [address] Monocytes/100 WBC (Bld) 8.3 % Normal 0-10 [facility] Comment on above: Order Comment: 105-1 Performed By: #### L 506.1001, [id number] #### [facility] [address] [place], [address] Neutrophils/100 WBC (Bld) 43.1 % Low 47-70 [facility] Comment on above: Order Comment: 105-1 Performed By: #### L 506.1001, [id number] #### [facility] [address] [place], [address] Nucleated RBC (Bld) [#/Vol] 0 10*3/uL Normal 0-5 [facility] Comment on above: Order Comment: 105-1 Performed By: #### L 506.1001, [id number] #### [facility] [address] [place], [address] Platelet mean volume (Bld) [Entitic vol] 11.5 fL Normal 6.2-12.0 [facility] Comment on above: Order Comment: 105-1 Performed By: #### L 506.1001, [id number] #### [facility] [address] [place], [address] Platelets (Bld) [#/Vol] 203 10*3/uL Normal 150-450 [facility] Comment on above: Order Comment: 105-1 Performed By: #### L 506.1001, [id number] #### [facility] [address] [place], [address] RBC (Bld) [#/Vol] 4.45 10*6/uL Normal 4.2-5.4 [facility] Comment on above: Order Comment: 105-1 Performed By: #### L 506.1001, [id number] #### [facility] [address] [place], [address] RDW SD 48.5 fl High 35.1-43.9 [facility] Comment on above: Order Comment: 105-1 Performed By: #### L 506.1001, [id number] #### [facility] [address] [place], [address] WBC (Bld) [#/Vol] 7.0 10*3/uL Normal 4.4-11.0 [facility] Comment on above: Order Comment: 105-1 Performed By: #### L 506.1001, [id number] #### [facility] [address] [place], [address] Comprehensive Metabolic Prof ilon 06-25-2024 Albumin [Mass/Vol] 2.7 g/dL Low 3.2-5.0 [facility] Comment on above: Order Comment: 105-1 Performed By: #### L 506.1001, [id number] #### [facility] [address] [place], [address] Albumin/Globulin [Mass ratio] 0.7 {ratio} Low 0.9-2.4 [facility] Comment on above: Order Comment: 105-1 Performed By: #### L 506.1001, [id number] #### [facility] [address] [place], [address] ALK P 73 U/L Normal 45-117 [facility] Comment on above: Order Comment: 105-1 Performed By: #### L 506.1001, [id number] #### [facility] [address] [place], [address] ALT [Catalytic activity/Vol] 17 U/L Normal 13-56 [facility] Comment on above: Order Comment: 105-1 Performed By: #### L 506.1001, [id number] #### [facility] [address] [place], [address] AST [Catalytic activity/Vol] 17 U/L Normal 15-37 [facility] Comment on above: Order Comment: 105-1 Performed By: #### L 506.1001, [id number] #### [facility] [address] [place], [address] Bilirubin [Mass/Vol] 0.80 mg/dL Normal 0.20-1.00 [facility] Comment on above: Order Comment: 105-1 Result Comment: For patients on eltrombopag therapy, use of Dimension Van Meter TBIL is not recommended. Performed By: #### L 506.1001, [id number] #### [facility] [address] [place], [address] BUN/CRE 21.4 RATIO High 10-20 [facility] Comment on above: Order Comment: 105-1 Performed By: #### L 506.1001, [id number] #### [facility] [address] [place], [address] CA,Total 8.8 mg/dL Normal 8.5-10.1 [facility] Comment on above: Order Comment: 105-1 Performed By: #### L 506.1001, [id number] #### [facility] [address] [place], [address] Chloride [Moles/Vol] 109 mmol/L High 98-107 [facility] Comment on above: Order Comment: 105-1 Performed By: #### L 506.1001, [id number] #### [facility] [address] [place], [address] CO2 [Moles/Vol] 30.0 mmol/L Normal 21.0-32.0 [facility] Comment on above: Order Comment: 105-1 Performed By: #### L 506.1001, [id number] #### [facility] [address] [place], [address] Creatinine [Mass/Vol] 0.75 mg/dL Normal 0.55-1.02 [facility] Comment on above: Order Comment: 105-1 Result Comment: The validity of the calculated GFR GFRAA in patients over 70 years has not been determined. Clinical correlation is essential. Performed By: #### L 506.1001, L501.8100 #### [facility] [address] [place], [address] EST GFR - AA 96 mL/min Normal >60 [facility] Comment on above: Order Comment: 105-1 Result Comment: Afri can [place] GFR Calc Performed By: #### L 506.1001, [id number] #### [facility] [address] [place], [address] GAP 4 Low 5-15 [facility] Comment on above: Order Comment: 105-1 Performed By: #### L 506.1001, [id number] #### [facility] [address] [place], [address] GFR/1.73 sq M.predicted among non-blacks MDRD (S/P/Bld) [Vol rate/Area] 79 mL/min/{1.73_m2} Normal >60 [facility] Comment on above: Order Comment: 105-1 Result Comment: Non- GFR Calc Performed By: #### L 506.1001, [id number] #### [facility] [address] [place], [address] Globulin (S) [Mass/Vol] 3.7 g/dL Normal 2.2-4.2 [facility] Comment on above: Order Comment: 105-1 Performed By: #### L 506.1001, [id number] #### [facility] [address] [place], [address] Glucose [Mass/Vol] 82 mg/dL Normal 74-106 [facility] Comment on above: Order Comment: 105-1 Performed By: #### L 506.1001, [id number] #### [facility] [address] [place], [address] Potassium [Moles/Vol] 4.0 mmol/L Normal 3.5-5.1 [facility] Comment on above: Order Comment: 105-1 Performed By: #### L 506.1001, [id number] #### [facility] [address] [place], [address] Sodium [Moles/Vol] 143 mmol/L Normal 136-145 [facility] Comment on above: Order Comment: 105-1 Performed By: #### L 506.1001, [id number] #### [facility] [address] [place], [address] T PROT 6.4 g/dL Normal 6.4-8.2 [facility] Comment on above: Order Comment: 105-1 Performed By: #### L 506.1001, [id number] #### [facility] [address] [place], [address] Urea nitrogen [Mass/Vol] 16 mg/dL Normal 7-18 [facility] Comment on above: Order Comment: 105-1 Performed By: #### L 506.1001, [id number] #### [facility] [address] [place], [address] Lipid Profileon 06-25-2024 Cholesterol [Mass/Vol] 192 mg/dL Normal 200 [facility] Comment on above: Order Comment: 105-1 Result Comment: <200 mg/dL Desirable 200-240 mg/dL Borderline >240 mg/dL High Risk Performed By: #### L 506.1001, [id number] #### [facility] [address] [place], [address] Cholesterol in HDL [Mass/Vol] 47 mg/dL Normal [facility] Comment on above: Order Comment: 105-1 Result Comment: The drugs N-Acetylcysteine and Metamizole may falsely depress this assay. Reference Range HDL <40 mg/dL Low HDL Cholesterol HDL >or= 60 mg/dL High HDL Cholesterol Performed By: #### L 506.1001, [id number] #### [facility] [address] [place], [address] Cholesterol in LDL [Mass/Vol] 107 mg/dL Normal 0-130 [facility] Comment on above: Order Comment: 105-1 Performed By: #### L 506.1001, [id number] #### [facility] [address] [place], [address] Cholesterol in VLDL [Mass/Vol] 38 mg/dL Normal 5-40 [facility] Comment on above: Order Comment: 105-1 Performed By: #### L 506.1001, [id number] #### [facility] [address] [place], [address] Triglyceride [Mass/Vol] 188 mg/dL Normal [facility] Comment on above: Order Comment: 105-1 Result Comment: The drugs N-Acetylcysteine and Metamizole may falsely depress this assay. Serum Triglycerides Reference Interval Normal <150 mg/dL Borderline high 150 - 199 mg/dL High 200 - 499 mg/dL Very High > or = 500 mg/dL Performed By: #### L 506.1001, [id number] #### [facility] [address] [place], [address] Thyroid Stim Hormone (TSH)on 06-25-2024 TSH 4.290 uIU/mL High 0.358-3.740 [facility] Comment on above: Order Comment: 105-1 Performed By: #### L 506.1001, [id number] #### [facility] [address] [place], [address] CBC W/Diff, Automatedon 10-0 Absolute Neut Normal 2.0-7.7 [facility] Comment on above: Order Comment: 105-1 Result Comment: This specimen has been REJECTED due to Laboratory criteria: Quanity Not Sufficient. MYEAGER has been notified of need of recollection. 06/24/24899 Selam Esposito Performed By: #### L 506.1001, [id number] #### [facility] [address] [place], [place], [address] HCT Normal 37-47 [facility] Comment on above: Order Comment: 105-1 Result Comment: This specimen has been REJECTED due to Laboratory criteria: Quanity Not Sufficient. MYEAGER has been notified of need of recollection. 06/24/24899 Selam Esposito Performed By: #### L 506.1001, [id number] #### [facility] [address] [place], [address] HGB Normal 12.0-15.0 [facility] Comment on above: Order Comment: 105-1 Result Comment: This specimen has been REJECTED due to Laboratory criteria: Quanity Not Sufficient. MYEAGER has been notified of need of recollection. 06/24/24899 Selam Seposito Performed By: #### L 506.1001, [id number] #### [facility] [address] [place], [address] MCH Normal 27.0-32.0 [facility] Comment on above: Order Comment: 105-1 Result Comment: This specimen has been REJECTED due to Laboratory criteria: Quanity Not Sufficient. MYEAGER has been notified of need of recollection. 06/24/24899 Selam Esposito Performed By: #### L 506.1001, [id number] #### [facility] [address] [place], [address] MCHC Normal 32-36 [facility] Comment on above: Order Comment: 105-1 Result Comment: This specimen has been REJECTED due to Laboratory criteria: Quanity Not Sufficient. MYEAGER has been notified of need of recollection. 06/24/24899 Selam Esposito Performed By: #### L 506.1001, [id number] #### [facility] [address] [place], [address] MCV Normal 81-99 [facility] Comment on above: Order Comment: 105-1 Result Comment: This specimen has been REJECTED due to Laboratory criteria: Quanity Not Sufficient. MYEAGER has been notified of need of recollection. 06/24/24899 Selam Esposito Performed By: #### L 506.1001, [id number] #### [facility] [address] [place], [address] NEUT% Normal 47-70 [facility] Comment on above: Order Comment: 105-1 Result Comment: This specimen has been REJECTED due to Laboratory criteria: Quanity Not Sufficient. MYEAGER has been notified of need of recollection. 06/24/24899 Selam Esposito Performed By: #### L 506.1001, [id number] #### [facility] [address] [place], [address] PLT Normal 150-450 [facility] Comment on above: Order Comment: 105-1 Result Comment: This specimen has been REJECTED due to Laboratory criteria: Quanity Not Sufficient. MYEAGER has been notified of need of recollection. 06/24/24899 Selam Esposito Performed By: #### L 506.1001, [id number] #### [facility] [address] [place], [address] RBC Normal 4.2-5.4 [facility] Comment on above: Order Comment: 105-1 Result Comment: This specimen has been REJECTED due to Laboratory criteria: Quanity Not Sufficient. MYEAGER has been notified of need of recollection. 06/24/24899 Selam Esposito Performed By: #### L 506.1001, [id number] #### [facility] [address] [place], [address] RDW CV Normal 11.6-14.6 [facility] Comment on above: Order Comment: 105-1 Result Comment: This specimen has been REJECTED due to Laboratory criteria: Quanity Not Sufficient. MYEAGER has been notified of need of recollection. 06/24/24899 Selam Esposito Performed By: #### L 506.1001, [id number] #### [facility] [address] [place], [address] RDW SD Normal 35.1-43.9 [facility] Comment on above: Order Comment: 105-1 Result Comment: This specimen has been REJECTED due to Laboratory criteria: Quanity Not Sufficient. MYEAGER has been notified of need of recollection. 06/24/24899 Selam Esposito Performed By: #### L 506.1001, [id number] #### [facility] [address] [place], [address] WBC Normal 4.4-11.0 [facility] Comment on above: Order Comment: 105-1 Result Comment: This specimen has been REJECTED due to Laboratory criteria: Quanity Not Sufficient. MARY has been notified of need of recollection. 06/24/24 0900 Selam Esposito Performed By: #### L 506.1001, [id number] #### [facility] [address] [place], [address] Comprehensive Metabolic Prof ilon 06-24-2024 ALB Normal 3.2-5.0 [facility] Comment on above: Order Comment: 105-1 Result Comment: COUL D NOT OBTAIN ENOUGH BLOOD Performed By: #### L 506.1001, [id number] #### [facility] [address] [place], [address] ALK P Normal 45-117 [facility] Comment on above: Order Comment: 105-1 Result Comment: COUL D NOT OBTAIN ENOUGH BLOOD Performed By: #### L 506.1001, [id number] #### [facility] [address] [place], [address] ALT Normal 13-56 [facility] Comment on above: Order Comment: 105-1 Result Comment: COUL D NOT OBTAIN ENOUGH BLOOD Performed By: #### L 506.1001, [id number] #### [facility] [address] [place], [address] AST Normal 15-37 [facility] Comment on above: Order Comment: 105-1 Result Comment: COUL D NOT OBTAIN ENOUGH BLOOD Performed By: #### L 506.1001, [id number] #### [facility] [address] [place], [address] BUN Normal 7-18 [facility] Comment on above: Order Comment: 105-1 Result Comment: COUL D NOT OBTAIN ENOUGH BLOOD Performed By: #### L 506.1001, [id number] #### [facility] [address] [place], [address] BUN/CRE Normal 10-20 [facility] Comment on above: Order Comment: 105-1 Result Comment: COUL D NOT OBTAIN ENOUGH BLOOD Performed By: #### L 506.1001, [id number] #### [facility] [address] [place], [address] CA,Total Normal 8.5-10.1 [facility] Comment on above: Order Comment: 105-1 Result Comment: COUL D NOT OBTAIN ENOUGH BLOOD Performed By: #### L 506.1001, [id number] #### [facility] [address] [place], [address] CL Normal 98-107 [facility] Comment on above: Order Comment: 105-1 Result Comment: COUL D NOT OBTAIN ENOUGH BLOOD Performed By: #### L 506.1001, [id number] #### [facility] [address] [place], [address] CO2 Normal 21.0-32.0 [facility] Comment on above: Order Comment: 105-1 Result Comment: COUL D NOT OBTAIN ENOUGH BLOOD Performed By: #### L 506.1001, [id number] #### [facility] [address] [place], [address] CREAT,SERUM Normal 0.55-1.02 [facility] Comment on above: Order Comment: 105-1 Result Comment: COUL D NOT OBTAIN ENOUGH BLOOD Performed By: #### L 506.1001, [id number] #### [facility] [address] [place], [address] EST GFR Normal >60 [facility] Comment on above: Order Comment: 105-1 Result Comment: COUL D NOT OBTAIN ENOUGH BLOOD Performed By: #### L 506.1001, [id number] #### [facility] [address] [place], [address] EST GFR - AA Normal >60 [facility] Comment on above: Order Comment: 105-1 Result Comment: COUL D NOT OBTAIN ENOUGH BLOOD Performed By: #### L 506.1001, [id number] #### [facility] [address] [place], [address] GAP Normal 5-15 [facility] Comment on above: Order Comment: 105-1 Result Comment: COUL D NOT OBTAIN ENOUGH BLOOD Performed By: #### L 506.1001, [id number] #### [facility] [address] [place], [address] GLU Normal 74-106 [facility] Comment on above: Order Comment: 105-1 Result Comment: COUL D NOT OBTAIN ENOUGH BLOOD Performed By: #### L 506.1001, [id number] #### [facility] [address] [place], [address] Potassium Normal 3.5-5.1 [facility] Comment on above: Order Comment: 105- Result Comment: COUL D NOT OBTAIN ENOUGH BLOOD Performed By: #### L 506.1001, [id number] #### [facility] [address] [place], [address] T BILI Normal 0.20-1.00 [facility] Comment on above: Order Comment: 105-1 Result Comment: COUL D NOT OBTAIN ENOUGH BLOOD Performed By: #### L 506.1001, [id number] #### [facility] [address] [place], [address] T PROT Normal 6.4-8.2 [facility] Comment on above: Order Comment: 105-1 Result Comment: COUL D NOT OBTAIN ENOUGH BLOOD Performed By: #### L 506.1001, [id number] #### [facility] [address] [place], [address] Comprehensive Metabolic Profil Normal 136-145 [facility] Comment on above: Order Comment: 105-1 Result Comment: COUL D NOT OBTAIN ENOUGH BLOOD Performed By: #### L 506.1001, [id number] #### [facility] [address] [place], [address] Lipid Profileon 06-24-2024 CHOL Normal 200 [facility] Comment on above: Order Comment: 105-1 Result Comment: COUL D NOT OBTAIN ENOUGH BLOOD Performed By: #### L 506.1001, [id number] #### [facility] [address] [place], [address] HDL Normal [facility] Comment on above: Order Comment: 105-1 Result Comment: COUL D NOT OBTAIN ENOUGH BLOOD Performed By: #### L 506.1001, [id number] #### [facility] [address] [place], [address] LDL Normal 0-130 [facility] Comment on above: Order Comment: 105-1 Result Comment: COUL D NOT OBTAIN ENOUGH BLOOD Performed By: #### L 506.1001, [id number] #### [facility] [address] [place], [address] TRIG Normal [facility] Comment on above: Order Comment: 105-1 Result Comment: COUL D NOT OBTAIN ENOUGH BLOOD Performed By: #### L 506.1001, [id number] #### [facility] [address] [place], [address] VLDL Normal 5-40 [facility] Comment on above: Order Comment: 105-1 Result Comment: COUL D NOT OBTAIN ENOUGH BLOOD Performed By: #### L 506.1001, [id number] #### [facility] [address] [place], [address] Valproic Acid (Depakene) Lev ladonna 06-07-2024 VALPROIC ACID 16 ug/mL Low 50-100 [facility] Comment on above: Order Comment: 105-1 Performed By: #### L 506.1001, [id number] #### [facility] [address] [place], [place], [address] Vitamin D,25 Hydroxyon 06-07 Vitamin D 25-OH 65.6 ng/mL Normal [facility] Comment on above: Order Comment: 105-1 Result Comment: Kerline min D 25(OH) Status Range Deficiency <20 ng/mL (50nmol/L) Insufficiency 20 - 30 ng/mL (50 - 75 nmol/L) Sufficiency 30 - 100 ng/mL (75 - 250 nmol/L) Toxicity >100 ng/mL (>250 nmol/L) Performed By: #### L 506.1001, [id number] #### [facility] [address] [place], [place], [address] Absolute lymphocyte countOrd ered By: Saurabh Fernandez on 10-16-2023 Lymphocytes Auto (Unsp spec) [#/Vol] 2.40 10*3/uL 0.83-4.51 [facility] Automated lymphocyte count a s percentage of total leukocytesOrdered By: Saurabh Fernandez on 10-16-2023 Lymphocytes/100 WBC Auto (Unsp spec) 22.2 % 19-41 [facility] Basophil percentageOrdered B y: Saurabh Fernandez on 10-16-2023 Basophils/100 WBC (Bld) 0.6 % 0-1 [facility] Bilirubin [Mass/Vol] 0.50 mg/dL 0.20-1.00 [facility] Comment on above: For patients on eltr ombopag therapy, use of Dimension Van Meter TBIL is not recommended. Chloride [Moles/Vol] 109 mmol/L 98-107 [facility] Cholesterol [Mass/Vol] 204 mg/dL <200 [facility] Comment on above: <200 mg/dL Desirable 200-240 mg/dL Borderline >240 mg/dL High Risk Eosinophils/100 WBC (Bld) 2.9 % 0-5 [facility] Glucose [Mass/Vol] 84 mg/dL 74-106 [facility] Hemoglobin (Bld) [Mass/Vol] 15.1 g/dL 12.0-15.0 [facility] Monocytes/100 WBC (Bld) 7.4 % 0-10 [facility] Neutrophils (Bld) [#/Vol] 7.2 10*3/uL 2.0-7.7 [facility] Neutrophils/100 WBC (Bld) 66.6 % 47-70 [facility] Potassium [Moles/Vol] 3.9 mmol/L 3.5-5.1 [facility] Protein [Mass/Vol] 6.4 g/dL 6.4-8.2 [facility] Sodium [Moles/Vol] 140 mmol/L 136-145 [facility] Triglyceride [Mass/Vol] 144 mg/dL <199 [facility] Comment on above: The drugs N-Acetylcy steine and Metamizole may falsely depress this assay.Serum Triglycerides Reference Interval Normal <150 mg/dL Borderline high 150 - 199 mg/dL High 200 - 499 mg/dL Very High > or = 500 mg/dL WBC (Bld) [#/Vol] 10.8 10*3/uL 4.4-11.0 [facility] Determination of erythrocyte mean corpuscular volume (MCV)Ordered By: Saurabh Fernandez on 10-16-2023 MCV (RBC) [Entitic vol] 99.6 fL 81-99 [facility] Erythrocyte distribution wid th ratioOrdered By: Saurabh Fernandez on 10-16-2023 Erythrocyte distribution width (RBC) [Ratio] 13.4 % 11.6-14.6 [facility] Erythrocyte distribution wid th standard deviationOrdered By: Saurabh Fernandez on 10-16-2023 Erythrocyte distribution width (RBC) [Entitic vol] 49.4 fL 35.1-43.9 [facility] Hematocrit Auto (Bld) [Volum e fraction]Ordered By: Saurabh Fernandez on 10-16-2023 Hematocrit (Bld) [Volume fraction] 47.5 % 37-47 [facility] Immature granulocytes/100 WB C Auto (Bld)Ordered By: Saurabh Fernandez on 10-16-2023 Immature granulocytes/100 WBC (Bld) 0.300 % 0.0-0.9 [facility] Comment on above: IG% - Immature Granu locytes (promyelocytes, myelocytes and metamyelocytes) > 1% indicates that a LEFT SHIFT is Present. Laboratory - Chemistry and C hemistry - challengeOrdered By: Saurabh Fernandez on 10-16-2023 Albumin/Globulin [Mass ratio] 0.7 {ratio} 0.9-2.4 [facility] ALP [Catalytic activity/Vol] 67 U/L 45-117 [facility] ALT [Catalytic activity/Vol] 20 U/L 13-56 [facility] Cholesterol in HDL (Body fld) [Mass/Vol] 48 mg/dL >40 [facility] Comment on above: The drugs N-Acetylcy steine and Metamizole may falsely depress this assay. Reference Range HDL <40 mg/dL Low HDL Cholesterol HDL >or= 60 mg/dL High HDL Cholesterol Cholesterol in LDL (Body fld) [Moles/Vol] 127 mg/dL 0-130 [facility] Cholesterol in VLDL Calc [Moles/Vol] 29 mg/dL 5-40 [facility] CO2 [Moles/Vol] 29.0 mmol/L 21.0-32.0 [facility] Globulin (S) [Mass/Vol] 3.7 g/dL 2.2-4.2 [facility] Urea nitrogen/Creatinine [Mass ratio] 27.9 mg/mg 10-20 [facility] - Hematology and Cell countsOrdered By: Saurabh Fernandez on 10-16-2023 MCH (RBC) [Entitic mass] 31.7 pg 27.0-32.0 [facility] MCHC (RBC) [Mass/Vol] 31.8 g/dL 32-36 [facility] Nucleated RBC/100 WBC (Bld) [Ratio] 0 % 0-5 [facility] Platelets (Bld) [#/Vol] 185 10*3/uL 150-450 [facility] No Panel InformationOrdered By: Saurabh Fernandez on 10-16-2023 Estimated GFR (MDRD) Amer 86 mL/min >60 [facility] Comment on above: GFR Calc Estimated GFR (MDRD) Non-Af Amer 71 mL/min >60 [facility] Comment on above: Non- GFR Calc Platelet mean volume Lior-Ec ker (Bld) [Entitic vol]Ordered By: Saurabh Fernandez on 10-16-2023 Platelet mean volume (Bld) [Entitic vol] 11.8 fL 6.2-12.0 [facility] RBC Auto (Bld) [#/Vol]Ordere d By: Saurabh Fernandez on 10-16-2023 RBC (Bld) [#/Vol] 4.77 10*6/uL 4.2-5.4 [facility] Serum or plasma calcium tyrese urement (mass/volume)Ordered By: Saurabh Fernandez on 10-16-2023 Calcium [Mass/Vol] 8.9 mg/dL 8.5-10.1 [facility] Serum or plasma creatinine m easurement (mass/volume)Ordered By: Saurabh Fernandez on 10-16-2023 Creatinine [Mass/Vol] 0.82 mg/dL 0.55-1.02 [facility] Comment on above: The validity of the calculated GFR & GFRAA in patients over 70 years has not been determined. Clinical correlation is essential. Serum or plasma thyroid stim ulating hormone (TSH) measurement (units/volume)Ordered By: Saurabh Fernandez on 10-16-2023 TSH Qn 2.62 uIU/mL 0.358-3.74 [facility] Serum or plasma urea nitroge n measurement (mass/volume)Ordered By: Saurabh Fernandez on 10-16-2023 Urea nitrogen [Mass/Vol] 23 mg/dL 7-18 [facility] Thin prep Papanicolaou smear with manual screeningOrdered By: Saurabh Fernandez on 10-16-2023 Thin prep Papanicolaou smear with manual screening 2.7 g/dL 3.2-5.0 [facility] Thin prep Papanicolaou smear with manual screening 15 U/L 15-37 [facility] Thin prep Papanicolaou smear with manual screening 2 5-15 [facility] No Panel InformationOrdered By: Saurabh Fernandez on 09-29-2023 Valproic Acid (Depakene) Level 27 ug/mL 50-100 [facility] Vitamin D 25-Hydroxy 86.5 ng/mL [facility] Comment on above: Vitamin D 25(OH) Sta tus Range Deficiency <20 ng/mL (50nmol/L) Insufficiency 20 - 30 ng/mL (50 - 75 nmol/L) Sufficiency 30 - 100 ng/mL (75 - 250 nmol/L) Toxicity >100 ng/mL (>250 nmol/L) Absolute lymphocyte countOrd ered By: Saurabh Fernandez on 09-01-2023 Lymphocytes Auto (Unsp spec) [#/Vol] 4.12 10*3/uL 0.83-4.51 [facility] Basophil percentageOrdered B y: Saurabh Fernandez on 09-01-2023 Basophils/100 WBC (Bld) 0.8 % 0-1 [facility] Bilirubin [Mass/Vol] 0.80 mg/dL 0.20-1.00 [facility] Comment on above: For patients on eltr ombopag therapy, use of Dimension [place] Meter TBIL is not recommended. Chloride [Moles/Vol] 110 mmol/L 98-107 [facility] Eosinophils/100 WBC (Bld) 4.8 % 0-5 [facility] Glucose [Mass/Vol] 79 mg/dL 74-106 [facility] Neutrophils (Bld) [#/Vol] 4.2 10*3/uL 2.0-7.7 [facility] Neutrophils/100 WBC (Bld) 43.6 % 47-70 [facility] Potassium [Moles/Vol] 4.1 mmol/L 3.5-5.1 [facility] Comment on above: Moderate Hemolysis, Result may be falsely increased. Protein [Mass/Vol] 6.7 g/dL 6.4-8.2 [facility] Sodium [Moles/Vol] 142 mmol/L 136-145 [facility] WBC (Bld) [#/Vol] 9.7 10*3/uL 4.4-11.0 [facility] Blood erythrocytes count (nu mber/volume)Ordered By: Saurabh Fernandez on 09-01-2023 RBC (Bld) [#/Vol] 5.00 10*6/uL 4.2-5.4 [facility] Blood hemoglobin measurement (mass/volume)Ordered By: Saurabh Fernandez on 09-01-2023 Hemoglobin (Bld) [Mass/Vol] 16.0 g/dL 12.0-15.0 [facility] Blood lymphocytes/100 leukoc ytesOrdered By: Saurabh Fernandez on 09-01-2023 Lymphocytes/100 WBC (Bld) 42.4 % 19-41 [facility] Blood monocytes/100 leukocyt esOrdered By: Saurabh Fernandez on 09-01-2023 Monocytes/100 WBC (Bld) 7.9 % 0-10 [facility] Blood platelet mean volumeOr dered By: Saurabh Fernandez on 09-01-2023 Platelet mean volume (Bld) [Entitic vol] 11.9 fL 6.2-12.0 [facility] Determination of erythrocyte mean corpuscular volume (MCV)Ordered By: Saurabh Fernandez on 09-01-2023 MCV (RBC) [Entitic vol] 100.8 fL 81-99 [facility] Hematocrit Auto (Bld) [Volum e fraction]Ordered By: Saurabh Fernandez on 09-01-2023 Hematocrit (Bld) [Volume fraction] 50.4 % 37-47 [facility] - Chemistry and C hemistry - challengeOrdered By: Saurabh Fernandez on 09-01-2023 ALP [Catalytic activity/Vol] 67 U/L 45-117 [facility] ALT [Catalytic activity/Vol] 21 U/L 13-56 [facility] CO2 [Moles/Vol] 26.0 mmol/L 21.0-32.0 [facility] Globulin (S) [Mass/Vol] 4.0 g/dL 2.2-4.2 [facility] Urea nitrogen/Creatinine [Mass ratio] 30.2 mg/mg 10-20 [facility] - Hematology and Cell countsOrdered By: Saurabh Fernandez on 09-01-2023 Erythrocyte distribution width (RBC) [Entitic vol] 52.3 fL 35.1-43.9 [facility] Erythrocyte distribution width (RBC) [Ratio] 14.0 % 11.6-14.6 [facility] Immature granulocytes/100 WBC (Bld) 0.500 % 0.0-0.9 [facility] Comment on above: IG% - Immature Granu locytes (promyelocytes, myelocytes and metamyelocytes) > 1% indicates that a LEFT SHIFT is Present. MCH (RBC) [Entitic mass] 32.0 pg 27.0-32.0 [facility] Nucleated RBC/100 W[facility] (Bld) [[facility]] 0 % 0[facility] ([facility] [Mass/Vol]Or dered By: Saurabh Fernandez on 09-01-2023 MCHC (RBC) [Mass/Vol] 31.7 g/dL 32-36 [facility] No Panel InformationOrdered By: Saurabh Fernandez on 09-01-2023 Estimated GFR (MDRD) Amer 72 mL/min >60 [facility] Comment on above: GFR Calc Estimated GFR (MDRD) Non-Af Amer 59 mL/min >60 [facility] Comment on above: Non- GFR Calc Platelets bldOrdered By: Ambreen Fernandez on 09-01-2023 Platelets (Bld) [#/Vol] 221 10*3/uL 150-450 [facility] Serum or plasma albumin tyrese urement (mass/volume)Ordered By: Saurabh Fernandez on 09-01-2023 Albumin [Mass/Vol] 2.7 g/dL 3.2-5.0 [facility] Serum or plasma albumin/glob ulin mass ratioOrdered By: Saurabh Fernandez on 09-01-2023 Albumin/Globulin [Mass ratio] 0.7 {ratio} 0.9-2.4 [facility] Serum or plasma calcium tyrese urement (mass/volume)Ordered By: Saurabh Fernandez on 09-01-2023 Calcium [Mass/Vol] 8.3 mg/dL 8.5-10.1 [facility] Serum or plasma creatinine m easurement (mass/volume)Ordered By: Saurabh Fernandez on 09-01-2023 Creatinine [Mass/Vol] 0.96 mg/dL 0.55-1.02 [facility] Comment on above: The validity of the calculated GFR & GFRAA in patients over 70 years has not been determined. Clinical correlation is essential. Serum or plasma urea nitroge n measurement (mass/volume)Ordered By: Saurabh Fernandez on 09-01-2023 Urea nitrogen [Mass/Vol] 29 mg/dL 7-18 [facility] Thin prep Papanicolaou smear with manual screeningOrdered By: Saurabh Fernandez on 09-01-2023 Thin prep Papanicolaou smear with manual screening 24 U/L 15-37 [facility] Comment on above: Moderate Hemolysis, Result may be falsely increased. Thin prep Papanicolaou smear with manual screening 6 5-15 [facility] Absolute lymphocyte countOrd ered By: Saurabh Fernandez on 07-24-2023 Lymphocytes Auto (Unsp spec) [#/Vol] 3.02 10*3/uL 0.83-4.51 [facility] Basophil percentageOrdered B y: Saurabh Fernandez on 07-24-2023 Basophils/100 WBC (Bld) 0.6 % 0-1 [facility] Bilirubin [Mass/Vol] 0.40 mg/dL 0.20-1.00 [facility] Comment on above: For patients on eltr ombopag therapy, use of Dimension [place] Meter TBIL is not recommended. Chloride [Moles/Vol] 110 mmol/L 98-107 [facility] Cholesterol [Mass/Vol] 189 mg/dL <200 [facility] Comment on above: <200 mg/dL Desirable 200-240 mg/dL Borderline >240 mg/dL High Risk Eosinophils/100 WBC (Bld) 4.2 % 0-5 [facility] Glucose [Mass/Vol] 85 mg/dL 74-106 [facility] Neutrophils (Bld) [#/Vol] 3.1 10*3/uL 2.0-7.7 [facility] Neutrophils/100 WBC (Bld) 43.7 % 47-70 [facility] Potassium [Moles/Vol] 4.2 mmol/L 3.5-5.1 [facility] Protein [Mass/Vol] 6.4 g/dL 6.4-8.2 [facility] Sodium [Moles/Vol] 141 mmol/L 136-145 [facility] Triglyceride [Mass/Vol] 137 mg/dL <199 [facility] Comment on above: The drugs N-Acetylcy steine and Metamizole may falsely depress this assay.Serum Triglycerides Reference Interval Normal <150 mg/dL Borderline high 150 - 199 mg/dL High 200 - 499 mg/dL Very High > or = 500 mg/dL WBC (Bld) [#/Vol] 7.1 10*3/uL 4.4-11.0 [facility] Blood erythrocytes count (nu mber/volume)Ordered By: Saurabh Fernandez on 07-24-2023 RBC (Bld) [#/Vol] 4.72 10*6/uL 4.2-5.4 [facility] Blood hemoglobin measurement (mass/volume)Ordered By: Saurabh Fernandez on 07-24-2023 Hemoglobin (Bld) [Mass/Vol] 14.8 g/dL 12.0-15.0 [facility] Blood lymphocytes/100 leukoc ytesOrdered By: Saurabh Fernandez on 07-24-2023 Lymphocytes/100 WBC (Bld) 42.6 % 19-41 [facility] Blood monocytes/100 leukocyt esOrdered By: Saurabh Fernandez on 07-24-2023 Monocytes/100 WBC (Bld) 8.5 % 0-10 [facility] Blood platelet mean volumeOr dered By: Saurabh Fernandez on 07-24-2023 Platelet mean volume (Bld) [Entitic vol] 12.0 fL 6.2-12.0 [facility] Determination of erythrocyte mean corpuscular volume (MCV)Ordered By: Saurabh Fernandez on 07-24-2023 MCV (RBC) [Entitic vol] 100.2 fL 81-99 [facility] Hematocrit Auto (Bld) [Volum e fraction]Ordered By: Saurabh Fernandez on 07-24-2023 Hematocrit (Bld) [Volume fraction] 47.3 % 37-47 [facility] - Chemistry and C hemistry - challengeOrdered By: Saurabh Fernandez on 07-24-2023 ALP [Catalytic activity/Vol] 57 U/L 45-117 [facility] ALT [Catalytic activity/Vol] 18 U/L 13-56 [facility] CO2 [Moles/Vol] 29.0 mmol/L 21.0-32.0 [facility] Globulin (S) [Mass/Vol] 3.9 g/dL 2.2-4.2 [facility] Urea nitrogen/Creatinine [Mass ratio] 32.6 mg/mg 10-20 [facility] - Hematology and Cell countsOrdered By: Saurabh Fernandez on 07-24-2023 Erythrocyte distribution width (RBC) [Entitic vol] 50.6 fL 35.1-43.9 [facility] Erythrocyte distribution width (RBC) [Ratio] 13.7 % 11.6-14.6 [facility] Immature granulocytes/100 WBC (Bld) 0.400 % 0.0-0.9 [facility] Comment on above: IG% - Immature Granu locytes (promyelocytes, myelocytes and metamyelocytes) > 1% indicates that a LEFT SHIFT is Present. MCH (RBC) [Entitic mass] 31.4 pg 27.0-32.0 [facility] Nucleated RBC/100 WBC (Bld) [Ratio] 0 % 0-5 [facility] MCHC Auto (RBC) [Mass/Vol]Or dered By: Saurabh Fernandez on 07-24-2023 MCHC (RBC) [Mass/Vol] 31.3 g/dL 32-36 [facility] No Panel InformationOrdered By: Saurabh Fernandez on 07-24-2023 Estimated GFR (MDRD) Amer 82 mL/min >60 [facility] Comment on above: GFR Calc Estimated GFR (MDRD) Non-Af Amer 67 mL/min >60 [facility] Comment on above: Non- GFR Calc Thyroid Stimulating Hormone (TSH) 1.79 uIU/mL 0.358-3.74 [facility] Platelets bldOrdered By: Ambreen Fernandez on 07-24-2023 Platelets (Bld) [#/Vol] 191 10*3/uL 150-450 [facility] Serum or plasma albumin tyrese urement (mass/volume)Ordered By: Saurabh Fernandez on 07-24-2023 Albumin [Mass/Vol] 2.5 g/dL 3.2-5.0 [facility] Serum or plasma albumin/glob ulin mass ratioOrdered By: Saurabh Fernandez on 07-24-2023 Albumin/Globulin [Mass ratio] 0.6 {ratio} 0.9-2.4 [facility] Serum or plasma calcium tyrese urement (mass/volume)Ordered By: Saurabh Fernandez on 07-24-2023 Calcium [Mass/Vol] 8.3 mg/dL 8.5-10.1 [facility] Serum or plasma cholesterol in HDL measurement (mass/volume)Ordered By: Saurabh Fernandez on 07-24-2023 Cholesterol in HDL [Mass/Vol] 45 mg/dL >40 [facility] Comment on above: The drugs N-Acetylcy steine and Metamizole may falsely depress this assay. Reference Range HDL <40 mg/dL Low HDL Cholesterol HDL >or= 60 mg/dL High HDL Cholesterol Serum or plasma cholesterol in VLDL measurement (mass/volume)Ordered By: Saurabh Fernandez on 07-24-2023 Cholesterol in VLDL [Mass/Vol] 27 mg/dL 5-40 [facility] Serum or plasma creatinine m easurement (mass/volume)Ordered By: Saurabh Fernandez on 07-24-2023 Creatinine [Mass/Vol] 0.86 mg/dL 0.55-1.02 [facility] Comment on above: The validity of the calculated GFR & GFRAA in patients over 70 years has not been determined. Clinical correlation is essential. Serum or plasma low density lipoprotein (LDL) cholesterol measurement (mass/volume)Ordered By: Saurabh Fernandez on 07-24-2023 Cholesterol in LDL [Mass/Vol] 117 mg/dL 0-130 [facility] Serum or plasma urea nitroge n measurement (mass/volume)Ordered By: Saurabh Fernandez on 07-24-2023 Urea nitrogen [Mass/Vol] 28 mg/dL 7-18 [facility] Thin prep Papanicolaou smear with manual screeningOrdered By: Saurabh Fernandez on 07-24-2023 Thin prep Papanicolaou smear with manual screening 19 U/L 15-37 [facility] Thin prep Papanicolaou smear with manual screening 2 5-15 [facility] No Panel InformationOrdered By: Saurabh Fernandez on 06-30-2023 Valproic Acid (Depakene) Level 33 ug/mL 50-100 [facility] Absolute lymphocyte countOrd ered By: Saurabh Fernandez on 05-01-2023 Lymphocytes Auto (Unsp spec) [#/Vol] 3.15 10*3/uL 0.83-4.51 [facility] Basophil percentageOrdered B y: Saurabh Fernandez on 05-01-2023 Basophils/100 WBC (Bld) 0.6 % 0-1 [facility] Bilirubin [Mass/Vol] 0.50 mg/dL 0.20-1.00 [facility] Comment on above: For patients on eltr ombopag therapy, use of Dimension [place] Meter TBIL is not recommended. Chloride [Moles/Vol] 108 mmol/L 98-107 [facility] Cholesterol [Mass/Vol] 205 mg/dL <200 [facility] Comment on above: <200 mg/dL Desirable 200-240 mg/dL Borderline >240 mg/dL High Risk Eosinophils/100 WBC (Bld) 3.6 % 0-5 [facility] Glucose [Mass/Vol] 90 mg/dL 74-106 [facility] Neutrophils (Bld) [#/Vol] 3.1 10*3/uL 2.0-7.7 [facility] Neutrophils/100 WBC (Bld) 42.3 % 47-70 [facility] Potassium [Moles/Vol] 4.5 mmol/L 3.5-5.1 [facility] Protein [Mass/Vol] 7.2 g/dL 6.4-8.2 [facility] Sodium [Moles/Vol] 142 mmol/L 136-145 [facility] Triglyceride [Mass/Vol] 160 mg/dL <199 [facility] Comment on above: The drugs N-Acetylcy steine and Metamizole may falsely depress this assay.Serum Triglycerides Reference Interval Normal <150 mg/dL Borderline high 150 - 199 mg/dL High 200 - 499 mg/dL Very High > or = 500 mg/dL WBC (Bld) [#/Vol] 7.3 10*3/uL 4.4-11.0 [facility] Blood erythrocytes count (nu mber/volume)Ordered By: Saurabh Fernandez on 05-01-2023 RBC (Bld) [#/Vol] 4.82 10*6/uL 4.2-5.4 [facility] Blood hemoglobin measurement (mass/volume)Ordered By: Saurabh Fernandez on 05-01-2023 Hemoglobin (Bld) [Mass/Vol] 15.1 g/dL 12.0-15.0 [facility] Blood lymphocytes/100 leukoc ytesOrdered By: Saurabh Fernandez on 05-01-2023 Lymphocytes/100 WBC (Bld) 43.3 % 19-41 [facility] Blood monocytes/100 leukocyt esOrdered By: Saurabh Fernandez on 05-01-2023 Monocytes/100 WBC (Bld) 9.5 % 0-10 [facility] Blood platelet mean volumeOr dered By: Saurabh Fernandez on 05-01-2023 Platelet mean volume (Bld) [Entitic vol] 12.2 fL 6.2-12.0 [facility] Determination of erythrocyte mean corpuscular volume (MCV)Ordered By: Saurabh Fernandez on 05-01-2023 MCV (RBC) [Entitic vol] 100.2 fL 81-99 [facility] Hematocrit Auto (Bld) [Volum e fraction]Ordered By: Saurabh Fernandez on 05-01-2023 Hematocrit (Bld) [Volume fraction] 48.3 % 37-47 [facility] - Chemistry and C hemistry - challengeOrdered By: Saurabh Fernandez on 05-01-2023 ALP [Catalytic activity/Vol] 71 U/L 45-117 [facility] ALT [Catalytic activity/Vol] 27 U/L 13-56 [facility] CO2 [Moles/Vol] 29.0 mmol/L 21.0-32.0 [facility] Globulin (S) [Mass/Vol] 4.3 g/dL 2.2-4.2 [facility] Urea nitrogen/Creatinine [Mass ratio] 29.5 mg/mg 10-20 [facility] - Hematology and Cell countsOrdered By: Saurabh Fernandez on 05-01-2023 Erythrocyte distribution width (RBC) [Entitic vol] 50.1 fL 35.1-43.9 [facility] Erythrocyte distribution width (RBC) [Ratio] 13.4 % 11.6-14.6 [facility] Immature granulocytes/100 WBC (Bld) 0.700 % 0.0-0.9 [facility] Comment on above: IG% - Immature Granu locytes (promyelocytes, myelocytes and metamyelocytes) > 1% indicates that a LEFT SHIFT is Present. MCH (RBC) [Entitic mass] 31.3 pg 27.0-32.0 [facility] Nucleated RBC/100 WBC (Bld) [Ratio] 0 % 0-5 [facility] MCHC Auto (RBC) [Mass/Vol]Or dered By: Saurabh Fernandez on 05-01-2023 MCHC (RBC) [Mass/Vol] 31.3 g/dL 32-36 [facility] No Panel InformationOrdered By: Saurabh Fernandez on 05-01-2023 Estimated GFR (MDRD) Amer 60 mL/min >60 [facility] Comment on above: GFR Calc Estimated GFR (MDRD) Non-Af Amer 50 mL/min >60 [facility] Comment on above: Non- GFR Calc Thyroid Stimulating Hormone (TSH) 2.38 uIU/mL 0.358-3.74 [facility] Platelets bldOrdered By: Ambreen Fernandez on 05-01-2023 Platelets (Bld) [#/Vol] 181 10*3/uL 150-450 [facility] Serum or plasma albumin tyrese urement (mass/volume)Ordered By: Saurabh Fernandez on 05-01-2023 Albumin [Mass/Vol] 2.9 g/dL 3.2-5.0 [facility] Serum or plasma albumin/glob ulin mass ratioOrdered By: Saurabh Fernandez on 05-01-2023 Albumin/Globulin [Mass ratio] 0.7 {ratio} 0.9-2.4 [facility] Serum or plasma calcium tyrese urement (mass/volume)Ordered By: Saurabh Fernandez on 05-01-2023 Calcium [Mass/Vol] 9.0 mg/dL 8.5-10.1 [facility] Serum or plasma cholesterol in HDL measurement (mass/volume)Ordered By: Saurabh Fernandez on 05-01-2023 Cholesterol in HDL [Mass/Vol] 53 mg/dL >40 [facility] Comment on above: The drugs N-Acetylcy steine and Metamizole may falsely depress this assay. Reference Range HDL <40 mg/dL Low HDL Cholesterol HDL >or= 60 mg/dL High HDL Cholesterol Serum or plasma cholesterol in VLDL measurement (mass/volume)Ordered By: Saurabh Fernandez on 05-01-2023 Cholesterol in VLDL [Mass/Vol] 32 mg/dL 5-40 [facility] Serum or plasma creatinine m easurement (mass/volume)Ordered By: Saurabh Fernandez on 05-01-2023 Creatinine [Mass/Vol] 1.12 mg/dL 0.55-1.02 [facility] Comment on above: The validity of the calculated GFR & GFRAA in patients over 70 years has not been determined. Clinical correlation is essential. Serum or plasma low density lipoprotein (LDL) cholesterol measurement (mass/volume)Ordered By: Saurabh Fernandez on 05-01-2023 Cholesterol in LDL [Mass/Vol] 120 mg/dL 0-130 [facility] Serum or plasma urea nitroge n measurement (mass/volume)Ordered By: Saurabh Fernandez on 05-01-2023 Urea nitrogen [Mass/Vol] 33 mg/dL 7-18 [facility] Thin prep Papanicolaou smear with manual screeningOrdered By: Saurabh Fernandez on 05-01-2023 Thin prep Papanicolaou smear with manual screening 21 U/L 15-37 [facility] Thin prep Papanicolaou smear with manual screening 5 5-15 [facility] No Panel InformationOrdered By: Saurabh Fernandez on 04-07-2023 Valproic Acid (Depakene) Level 29 ug/mL 50-100 [facility] Absolute lymphocyte countOrd ered By: Saurabh Fernandez on 02-06-2023 Lymphocytes Auto (Unsp spec) [#/Vol] 2.99 10*3/uL 0.83-4.51 [facility] Basophil percentageOrdered B y: Saurabh Fernandez on 02-06-2023 Basophils/100 WBC (Bld) 0.3 % 0-1 [facility] Bilirubin [Mass/Vol] 0.40 mg/dL 0.20-1.00 [facility] Comment on above: For patients on eltr ombopag therapy, use of Dimension [place] TBIL is not recommended. Chloride [Moles/Vol] 110 mmol/L 98-107 [facility] Cholesterol [Mass/Vol] 196 mg/dL <200 [facility] Comment on above: <200 mg/dL Desirable 200-240 mg/dL Borderline >240 mg/dL High Risk Eosinophils/100 WBC (Bld) 4.4 % 0-5 [facility] Glucose [Mass/Vol] 90 mg/dL 74-106 [facility] Neutrophils (Bld) [#/Vol] 2.9 10*3/uL 2.0-7.7 [facility] Neutrophils/100 WBC (Bld) 43.3 % 47-70 [facility] Potassium [Moles/Vol] 4.4 mmol/L 3.5-5.1 [facility] Protein [Mass/Vol] 6.2 g/dL 6.4-8.2 [facility] Sodium [Moles/Vol] 143 mmol/L 136-145 [facility] Triglyceride [Mass/Vol] 157 mg/dL <199 [facility] Comment on above: The drugs N-Acetylcy steine and Metamizole may falsely depress this assay.Serum Triglycerides Reference Interval Normal <150 mg/dL Borderline high 150 - 199 mg/dL High 200 - 499 mg/dL Very High > or = 500 mg/dL WBC (Bld) [#/Vol] 6.8 10*3/uL 4.4-11.0 [facility] Blood erythrocytes count (nu mber/volume)Ordered By: Saurabh Fernandez on 02-06-2023 RBC (Bld) [#/Vol] 4.40 10*6/uL 4.2-5.4 [facility] Blood hemoglobin measurement (mass/volume)Ordered By: Saurabh Fernandez on 02-06-2023 Hemoglobin (Bld) [Mass/Vol] 13.5 g/dL 12.0-15.0 [facility] Blood lymphocytes/100 leukoc ytesOrdered By: Saurabh Fernandez on 02-06-2023 Lymphocytes/100 WBC (Bld) 44.0 % 19-41 [facility] Blood monocytes/100 leukocyt esOrdered By: Saurabh Fernandez on 02-06-2023 Monocytes/100 WBC (Bld) 7.6 % 0-10 [facility] Blood platelet mean volumeOr dered By: Saurabh Fernandez on 02-06-2023 Platelet mean volume (Bld) [Entitic vol] 11.6 fL 6.2-12.0 [facility] Determination of erythrocyte mean corpuscular volume (MCV)Ordered By: Saurabh Fernandez on 02-06-2023 MCV (RBC) [Entitic vol] 100.0 fL 81-99 [facility] Hematocrit Auto (Bld) [Volum e fraction]Ordered By: Saurabh Fernandez on 02-06-2023 Hematocrit (Bld) [Volume fraction] 44.0 % 37-47 [facility] Laboratory - Chemistry and C hemistry - challengeOrdered By: Saurabh Fernandez on 02-06-2023 ALP [Catalytic activity/Vol] 63 U/L 45-117 [facility] ALT [Catalytic activity/Vol] 20 U/L 13-56 [facility] CO2 [Moles/Vol] 28.0 mmol/L 21.0-32.0 [facility] Globulin (S) [Mass/Vol] 3.8 g/dL 2.2-4.2 [facility] Urea nitrogen/Creatinine [Mass ratio] 25.0 mg/mg 10-20 [facility] Laboratory - Hematology and Cell countsOrdered By: Saurabh Fernandez on 02-06-2023 Erythrocyte distribution width (RBC) [Entitic vol] 51.3 fL 35.1-43.9 [facility] Erythrocyte distribution width (RBC) [Ratio] 13.9 % 11.6-14.6 [facility] Immature granulocytes/100 WBC (Bld) 0.400 % 0.0-0.9 [facility] Comment on above: IG% - Immature Granu locytes (promyelocytes, myelocytes and metamyelocytes) > 1% indicates that a LEFT SHIFT is Present. MCH (RBC) [Entitic mass] 30.7 pg 27.0-32.0 [facility] Nucleated RBC/100 WBC (Bld) [Ratio] 0 % 0-5 [facility] MCHC Auto (RBC) [Mass/Vol]Or dered By: Saurabh Fernandez on 02-06-2023 MCHC (RBC) [Mass/Vol] 30.7 g/dL 32-36 [facility] No Panel InformationOrdered By: Saurabh Fernandez on 02-06-2023 Estimated GFR (MDRD) Amer 84 mL/min >60 [facility] Comment on above: GFR Calc Estimated GFR (MDRD) Non-Af Amer 69 mL/min >60 [facility] Comment on above: Non- GFR Calc Thyroid Stimulating Hormone (TSH) 2.21 uIU/mL 0.358-3.74 [facility] Platelets bldOrdered By: Ambreen Fernandez on 02-06-2023 Platelets (Bld) [#/Vol] 204 10*3/uL 150-450 [facility] Serum or plasma albumin tyrese urement (mass/volume)Ordered By: Saurabh Fernandez on 02-06-2023 Albumin [Mass/Vol] 2.4 g/dL 3.2-5.0 [facility] Serum or plasma albumin/glob ulin mass ratioOrdered By: Saurabh Fernandez on 02-06-2023 Albumin/Globulin [Mass ratio] 0.6 {ratio} 0.9-2.4 [facility] Serum or plasma calcium tyrese urement (mass/volume)Ordered By: Saurabh Fernandez on 02-06-2023 Calcium [Mass/Vol] 8.2 mg/dL 8.5-10.1 [facility] Serum or plasma cholesterol in HDL measurement (mass/volume)Ordered By: Saurabh Fernandez on 02-06-2023 Cholesterol in HDL [Mass/Vol] 51 mg/dL >40 [facility] Comment on above: The drugs N-Acetylcy steine and Metamizole may falsely depress this assay. Reference Range HDL <40 mg/dL Low HDL Cholesterol HDL >or= 60 mg/dL High HDL Cholesterol Serum or plasma cholesterol in VLDL measurement (mass/volume)Ordered By: Saurabh Fernandez on 02-06-2023 Cholesterol in VLDL [Mass/Vol] 31 mg/dL 5-40 [facility] Serum or plasma creatinine m easurement (mass/volume)Ordered By: Saurabh Fernandez on 02-06-2023 Creatinine [Mass/Vol] 0.84 mg/dL 0.55-1.02 [facility] Comment on above: The validity of the calculated GFR & GFRAA in patients over 70 years has not been determined. Clinical correlation is essential. Serum or plasma low density lipoprotein (LDL) cholesterol measurement (mass/volume)Ordered By: Saurabh Fernandez on 02-06-2023 Cholesterol in LDL [Mass/Vol] 114 mg/dL 0-130 [facility] Serum or plasma urea nitroge n measurement (mass/volume)Ordered By: Saurabh Fernandez on 02-06-2023 Urea nitrogen [Mass/Vol] 21 mg/dL 7-18 [facility] Thin prep Papanicolaou smear with manual screeningOrdered By: Saurabh Fernandez on 02-06-2023 Thin prep Papanicolaou smear with manual screening 15 U/L 15-37 [facility] Thin prep Papanicolaou smear with manual screening 5 5-15 [facility] No Panel InformationOrdered By: Saurabh Fernandez on 01-13-2023 Valproic Acid (Depakene) Level 38 ug/mL 50-100 [facility] Absolute lymphocyte countOrd ered By: Saurabh Fernandez on 11-14-2022 Lymphocytes Auto (Unsp spec) [#/Vol] 2.82 10*3/uL 0.83-4.51 [facility] Basophil percentageOrdered B y: Saurabh Fernandez on 11-14-2022 Basophils/100 WBC (Bld) 0.3 % 0-1 [facility] Bilirubin [Mass/Vol] 0.40 mg/dL 0.20-1.00 [facility] Comment on above: For patients on eltr ombopag therapy, use of Dimension [place] TBIL is not recommended. Chloride [Moles/Vol] 111 mmol/L 98-107 [facility] Cholesterol [Mass/Vol] 179 mg/dL <200 [facility] Comment on above: <200 mg/dL Desirable 200-240 mg/dL Borderline >240 mg/dL High Risk Eosinophils/100 WBC (Bld) 3.6 % 0-5 [facility] Glucose [Mass/Vol] 77 mg/dL 74-106 [facility] Neutrophils (Bld) [#/Vol] 6.6 10*3/uL 2.0-7.7 [facility] Neutrophils/100 WBC (Bld) 61.7 % 47-70 [facility] Potassium [Moles/Vol] 4.2 mmol/L 3.5-5.1 [facility] Protein [Mass/Vol] 6.4 g/dL 6.4-8.2 [facility] Sodium [Moles/Vol] 145 mmol/L 136-145 [facility] Triglyceride [Mass/Vol] 124 mg/dL <199 [facility] Comment on above: The drugs N-Acetylcy steine and Metamizole may falsely depress this assay.Serum Triglycerides Reference Interval Normal <150 mg/dL Borderline high 150 - 199 mg/dL High 200 - 499 mg/dL Very High > or = 500 mg/dL WBC (Bld) [#/Vol] 10.7 10*3/uL 4.4-11.0 [facility] Blood erythrocytes count (nu mber/volume)Ordered By: Saurabh Fernandez on 11-14-2022 RBC (Bld) [#/Vol] 4.11 10*6/uL 4.2-5.4 [facility] Blood hemoglobin measurement (mass/volume)Ordered By: Saurabh Fernandez on 11-14-2022 Hemoglobin (Bld) [Mass/Vol] 12.7 g/dL 12.0-15.0 [facility] Blood lymphocytes/100 leukoc ytesOrdered By: Saurabh Fernandez on 11-14-2022 Lymphocytes/100 WBC (Bld) 26.4 % 19-41 [facility] Blood monocytes/100 leukocyt esOrdered By: Saurabh Fernandez on 11-14-2022 Monocytes/100 WBC (Bld) 7.6 % 0-10 [facility] Blood platelet mean volumeOr dered By: Saurabh Fernandez on 11-14-2022 Platelet mean volume (Bld) [Entitic vol] 11.6 fL 6.2-12.0 [facility] Determination of erythrocyte mean corpuscular volume (MCV)Ordered By: Saurabh Fernandez on 11-14-2022 MCV (RBC) [Entitic vol] 99.5 fL 81-99 [facility] Hematocrit Auto (Bld) [Volum e fraction]Ordered By: Saurabh Fernandez on 11-14-2022 Hematocrit (Bld) [Volume fraction] 40.9 % 37-47 [facility] Laboratory - Chemistry and C hemistry - challengeOrdered By: Saurabh Fernandez on 11-14-2022 ALP [Catalytic activity/Vol] 70 U/L 45-117 [facility] ALT [Catalytic activity/Vol] 22 U/L 13-56 [facility] CO2 [Moles/Vol] 29.0 mmol/L 21.0-32.0 [facility] Globulin (S) [Mass/Vol] 3.9 g/dL 2.2-4.2 [facility] Urea nitrogen/Creatinine [Mass ratio] 25.1 mg/mg 10-20 [facility] - Hematology and Cell countsOrdered By: Saurabh Fernandez on 11-14-2022 Erythrocyte distribution width (RBC) [Entitic vol] 52.2 fL 35.1-43.9 [facility] Erythrocyte distribution width (RBC) [Ratio] 14.3 % 11.6-14.6 [facility] Immature granulocytes/100 WBC (Bld) 0.400 % 0.0-0.9 [facility] Comment on above: IG% - Immature Granu locytes (promyelocytes, myelocytes and metamyelocytes) > 1% indicates that a LEFT SHIFT is Present. MCH (RBC) [Entitic mass] 30.9 pg 27.0-32.0 [facility] Nucleated RBC/100 WBC (Bld) [Ratio] 0 % 0-5 [facility] MCHC Auto (RBC) [Mass/Vol]Or dered By: Saurabh Fernandez on 11-14-2022 MCHC (RBC) [Mass/Vol] 31.1 g/dL 32-36 [facility] No Panel InformationOrdered By: Saurabh Fernandez on 11-14-2022 Estimated GFR (MDRD) Amer 84 mL/min >60 [facility] Comment on above: GFR Calc Estimated GFR (MDRD) Non-Af Amer 70 mL/min >60 [facility] Comment on above: Non- GFR Calc Thyroid Stimulating Hormone (TSH) 3.57 uIU/mL 0.358-3.74 [facility] Platelets bldOrdered By: Ambreen Fernandez on 11-14-2022 Platelets (Bld) [#/Vol] 209 10*3/uL 150-450 [facility] Serum or plasma albumin tyrese urement (mass/volume)Ordered By: Saurabh Fernandez on 11-14-2022 Albumin [Mass/Vol] 2.5 g/dL 3.2-5.0 [facility] Serum or plasma albumin/glob ulin mass ratioOrdered By: Saurabh Fernandez on 11-14-2022 Albumin/Globulin [Mass ratio] 0.6 {ratio} 0.9-2.4 [facility] Serum or plasma calcium tyrese urement (mass/volume)Ordered By: Saurabh Fernandez on 11-14-2022 Calcium [Mass/Vol] 8.5 mg/dL 8.5-10.1 [facility] Serum or plasma cholesterol in HDL measurement (mass/volume)Ordered By: Saurabh Fernandez on 11-14-2022 Cholesterol in HDL [Mass/Vol] 48 mg/dL >40 [facility] Comment on above: The drugs N-Acetylcy steine and Metamizole may falsely depress this assay. Reference Range HDL <40 mg/dL Low HDL Cholesterol HDL >or= 60 mg/dL High HDL Cholesterol Serum or plasma cholesterol in VLDL measurement (mass/volume)Ordered By: Saurabh Fernandez on 11-14-2022 Cholesterol in VLDL [Mass/Vol] 25 mg/dL 5-40 [facility] Serum or plasma creatinine m easurement (mass/volume)Ordered By: Saurabh Fernandez on 11-14-2022 Creatinine [Mass/Vol] 0.84 mg/dL 0.55-1.02 [facility] Comment on above: The validity of the calculated GFR & GFRAA in patients over 70 years has not been determined. Clinical correlation is essential. Serum or plasma low density lipoprotein (LDL) cholesterol measurement (mass/volume)Ordered By: Saurabh Fernandez on 11-14-2022 Cholesterol in LDL [Mass/Vol] 106 mg/dL 0-130 [facility] Serum or plasma urea nitroge n measurement (mass/volume)Ordered By: Saurabh Fernandez on 11-14-2022 Urea nitrogen [Mass/Vol] 21 mg/dL 7-18 [facility] Thin prep Papanicolaou smear with manual screeningOrdered By: Saurabh Fernandez on 11-14-2022 Thin prep Papanicolaou smear with manual screening 21 U/L 15-37 [facility] Thin prep Papanicolaou smear with manual screening 5 5-15 [facility] No Panel InformationOrdered By: Saurabh Fernandez on 10-21-2022 Valproic Acid (Depakene) Level 31 ug/mL 50-100 [facility] Progress Noteon 08-28-2022 Progress Note Patient [...] to 10 mg daily for prophylaxis Normal [facility] Absolute lymphocyte countOrd ered By: Harpal Ramirez on 08-23-2022 Lymphocytes Auto (Unsp spec) [#/Vol] 2.14 10*3/uL 0.83-4.51 [facility] Basophil percentageOrdered B y: Harpal Ramirez on 08-23-2022 Basophils/100 WBC (Bld) 0.6 % 0-1 [facility] Eosinophils/100 WBC (Bld) 4.1 % 0-5 [facility] Neutrophils (Bld) [#/Vol] 3.5 10*3/uL 2.0-7.7 [facility] Neutrophils/100 WBC (Bld) 53.2 % 47-70 [facility] WBC (Bld) [#/Vol] 6.6 10*3/uL 4.4-11.0 [facility] Blood erythrocytes count (nu mber/volume)Ordered By: Harpal Ramirez on 08-23-2022 RBC (Bld) [#/Vol] 3.84 10*6/uL 4[facility]2-5.4 [facility] measurement (mass/volume)Ordered By: Harpal Ramirez on 08-23-2022 Hemoglobin (Bld) [Mass/Vol] 11.7 g/dL 12.0-15.0 [facility] Blood lymphocytes/100 leukoc ytesOrdered By: Harpal Ramirez on 08-23-2022 Lymphocytes/100 WBC (Bld) 32.5 % 19-41 [facility] Blood monocytes/100 leukocyt esOrdered By: Harpal Ramirez on 08-23-2022 Monocytes/100 WBC (Bld) 9.1 % 0-10 [facility] Blood platelet mean volumeOr dered By: Harpal Ramirez on 08-23-2022 Platelet mean volume (Bld) [Entitic vol] 11.5 fL 6.2-12.0 [facility] Determination of erythrocyte mean corpuscular volume (MCV)Ordered By: Harpal Ramirez on 08-23-2022 MCV (RBC) [Entitic vol] 96.6 fL 81-99 [facility] Hematocrit Auto (Bld) [Volum e fraction]Ordered By: Harpal Ramirez on 08-23-2022 Hematocrit (Bld) [Volume fraction] 37.1 % 37-47 [facility] Laboratory - Hematology and Cell countsOrdered By: Harpal Ramirez on 08-23-2022 Erythrocyte distribution width (RBC) [Entitic vol] 50.7 fL 35.1-43.9 [facility] Erythrocyte distribution width (RBC) [Ratio] 14.4 % 11.6-14.6 [facility] Immature granulocytes/100 WBC (Bld) 0.500 % 0.0-0.9 [facility] Comment on above: IG% - Immature Granu locytes (promyelocytes, myelocytes and metamyelocytes) > 1% indicates that a LEFT SHIFT is Present. MCH (RBC) [Entitic mass] 30.5 pg 27.0-32.0 [facility] Nucleated RBC/100 WBC (Bld) [Ratio] 0 % 0-5 [facility] MCHC Auto (RBC) [Mass/Vol]Or dered By: Harpal Ramirez on 08-23-2022 MCHC (RBC) [Mass/Vol] 31.5 g/dL 32-36 [facility] Platelets bldOrdered By: Kanu Ramirez on 08-23-2022 Platelets (Bld) [#/Vol] 226 10*3/uL 150-450 [facility] 36on 08-22-2022 36 Last seen:11/28/21 [facility] Basophil percentageOrdered B y: Harpal Ramirez on 08-22-2022 Bilirubin [Mass/Vol] 0.60 mg/dL 0.20-1.00 [facility] Comment on above: For patients on eltr ombopag therapy, use of Dimension [place] TBIL is not recommended. Chloride [Moles/Vol] 105 mmol/L 98-107 [facility] Cholesterol [Mass/Vol] 189 mg/dL <200 [facility] Comment on above: <200 mg/dL Desirable 200-240 mg/dL Borderline >240 mg/dL High Risk Glucose [Mass/Vol] 83 mg/dL 74-106 [facility] Potassium [Moles/Vol] 4.1 mmol/L 3.5-5.1 [facility] Protein [Mass/Vol] 7.6 g/dL 6.4-8.2 [facility] Sodium [Moles/Vol] 140 mmol/L 136-145 [facility] Triglyceride [Mass/Vol] 121 mg/dL <199 [facility] Comment on above: The drugs N-Acetylcy steine and Metamizole may falsely depress this assay.Serum Triglycerides Reference Interval Normal <150 mg/dL Borderline high 150 - 199 mg/dL High 200 - 499 mg/dL Very High > or = 500 mg/dL Laboratory - Chemistry and C hemistry - challengeOrdered By: Harpal Ramirez on 08-22-2022 ALP [Catalytic activity/Vol] 75 U/L 45-117 [facility] ALT [Catalytic activity/Vol] 28 U/L 13-56 [facility] CO2 [Moles/Vol] 30.0 mmol/L 21.0-32.0 [facility] Globulin (S) [Mass/Vol] 4.5 g/dL 2.2-4.2 [facility] Urea nitrogen/Creatinine [Mass ratio] 28.4 mg/mg 10-20 [facility] No Panel InformationOrdered By: Harpal Ramirez on 08-22-2022 Estimated GFR (MDRD) Amer 70 mL/min >60 [facility] Comment on above: GFR Calc Estimated GFR (MDRD) Non-Af Amer 58 mL/min >60 [facility] Comment on above: Non- GFR Calc Thyroid Stimulating Hormone (TSH) 2.50 uIU/mL 0.358-3.74 [facility] Serum or plasma albumin tyrese urement (mass/volume)Ordered By: Harpal Ramirez on 08-22-2022 Albumin [Mass/Vol] 3.1 g/dL 3.2-5.0 [facility] Serum or plasma albumin/glob ulin mass ratioOrdered By: Harpal Ramirez on 08-22-2022 Albumin/Globulin [Mass ratio] 0.7 {ratio} 0.9-2.4 [facility] Serum or plasma calcium tyrese urement (mass/volume)Ordered By: Harpal Ramirez on 08-22-2022 Calcium [Mass/Vol] 9.1 mg/dL 8.5-10.1 [facility] Serum or plasma cholesterol in HDL measurement (mass/volume)Ordered By: Harpal Ramirez on 08-22-2022 Cholesterol in HDL [Mass/Vol] 62 mg/dL >40 [facility] Comment on above: The drugs N-Acetylcy steine and Metamizole may falsely depress this assay. Reference Range HDL <40 mg/dL Low HDL Cholesterol HDL >or= 60 mg/dL High HDL Cholesterol Serum or plasma cholesterol in VLDL measurement (mass/volume)Ordered By: Harpal Ramirez on 08-22-2022 Cholesterol in VLDL [Mass/Vol] 24 mg/dL 5-40 [facility] Serum or plasma creatinine m easurement (mass/volume)Ordered By: Harpal Ramirez on 08-22-2022 Creatinine [Mass/Vol] 0.98 mg/dL 0.55-1.02 [facility] Comment on above: The validity of the calculated GFR & GFRAA in patients over 70 years has not been determined. Clinical correlation is essential. Serum or plasma low density lipoprotein (LDL) cholesterol measurement (mass/volume)Ordered By: Harpal Ramirez on 08-22-2022 Cholesterol in LDL [Mass/Vol] 103 mg/dL 0-130 [facility] Serum or plasma urea nitroge n measurement (mass/volume)Ordered By: Harpal Ramirez on 08-22-2022 Urea nitrogen [Mass/Vol] 28 mg/dL 7-18 [facility] Thin prep Papanicolaou smear with manual screeningOrdered By: Harpal Ramirez on 08-22-2022 Thin prep Papanicolaou smear with manual screening 19 U/L 15-37 [facility] Thin prep Papanicolaou smear with manual screening 5 5-15 [facility] No Panel InformationOrdered By: Harpal Ramirez on 07-29-2022 Valproic Acid (Depakene) Level 38 ug/mL 50-100 [facility] Absolute lymphocyte countOrd ered By: Harpal Ramirez on 07-24-2022 Lymphocytes Auto (Unsp spec) [#/Vol] 2.39 10*3/uL 0.83-4.51 [facility] Basophil percentageOrdered B y: Harpal Ramirez on 07-24-2022 Basophils/100 WBC (Bld) 1.0 % 0-1 [facility] Chloride [Moles/Vol] 112 mmol/L 98-107 [facility] Eosinophils/100 WBC (Bld) 9.2 % 0-5 [facility] Glucose [Mass/Vol] 77 mg/dL 74-106 [facility] Neutrophils (Bld) [#/Vol] 2.3 10*3/uL 2.0-7.7 [facility] Neutrophils/100 WBC (Bld) 39.3 % 47-70 [facility] Potassium [Moles/Vol] 4.3 mmol/L 3.5-5.1 [facility] Comment on above: Slight Hemolysis, Re sult may be falsely increased. Sodium [Moles/Vol] 142 mmol/L 136-145 [facility] WBC (Bld) [#/Vol] 5.7 10*3/uL 4.4-11.0 [facility] Blood erythrocytes count (nu mber/volume)Ordered By: Harpal Ramirez on 07-24-2022 RBC (Bld) [#/Vol] 4.17 10*6/uL 4.2-5.4 [facility] Blood hemoglobin measurement (mass/volume)Ordered By: Harpal Ramirez on 07-24-2022 Hemoglobin (Bld) [Mass/Vol] 13.1 g/dL 12.0-15.0 [facility] Blood lymphocytes/100 leukoc ytesOrdered By: Harpal Ramirez on 07-24-2022 Lymphocytes/100 WBC (Bld) 41.6 % 19-41 [facility] Blood monocytes/100 leukocyt esOrdered By: Harpal Ramirez on 07-24-2022 Monocytes/100 WBC (Bld) 8.4 % 0-10 [facility] Blood platelet mean volumeOr dered By: Harpal Ramirez on 07-24-2022 Platelet mean volume (Bld) [Entitic vol] 11.5 fL 6.2-12.0 [facility] Determination of erythrocyte mean corpuscular volume (MCV)Ordered By: Harpal Ramirez on 07-24-2022 MCV (RBC) [Entitic vol] 99.0 fL 81-99 [facility] Hematocrit Auto (Bld) [Volum e fraction]Ordered By: Harpal Ramirez on 07-24-2022 Hematocrit (Bld) [Volume fraction] 41.3 % 37-47 [facility] Laboratory - Chemistry and C hemistry - challengeOrdered By: Harpal Ramirez on 07-24-2022 CO2 [Moles/Vol] 25.0 mmol/L 21.0-32.0 [facility] [facility]/Creatinine [Mass ratio] 24.3 mg/mg 10-20 [facility] Laboratory - Hematology and Cell countsOrdered By: Harpal Ramirez on 07-24-2022 Erythrocyte distribution width (RBC) [Entitic vol] 54.2 fL 35.1-43.9 [facility] Erythrocyte distribution width (RBC) [Ratio] 14.8 % 11.6-14.6 [facility] Immature granulocytes/100 WBC (Bld) 0.500 % 0.0-0.9 [facility] Comment on above: IG% - Immature Granu locytes (promyelocytes, myelocytes and metamyelocytes) > 1% indicates that a LEFT SHIFT is Present. MCH (RBC) [Entitic mass] 31.4 pg 27.0-32.0 [facility] Nucleated RBC/100 WBC (Bld) [Ratio] 0 % 0-5 [facility] MCHC Auto (RBC) [Mass/Vol]Or dered By: Harpal Ramirez on 07-24-2022 MCHC (RBC) [Mass/Vol] 31.7 g/dL 32-36 [facility] No Panel InformationOrdered By: Harpal Ramirez on 07-24-2022 Estimated GFR (MDRD) Amer 66 mL/min >60 [facility] Comment on above: GFR Calc Estimated GFR (MDRD) Non-Af Amer 55 mL/min >60 [facility] Comment on above: Non- GFR Calc Thyroid Stimulating Hormone (TSH) 2.63 uIU/mL 0.358-3.74 [facility] Platelets bldOrdered By: Kanu rogerse James on 07-24-2022 Platelets (Bld) [#/Vol] 201 10*3/uL 150-450 [facility] Progress Noteon 07-24-2022 Progress Note See Scanned Progress Notes [facility] Serum or plasma calcium tyrese urement (mass/volume)Ordered By: Harpal Ramirez on 07-24-2022 Calcium [Mass/Vol] 8.5 mg/dL 8.5-10.1 [facility] Serum or plasma creatinine m easurement (mass/volume)Ordered By: Harpal Ramirez on 07-24-2022 Creatinine [Mass/Vol] 1.03 mg/dL 0.55-1.02 [facility] Comment on above: The validity of the calculated GFR & GFRAA in patients over 70 years has not been determined. Clinical correlation is essential. Serum or plasma urea nitroge n measurement (mass/volume)Ordered By: Harpal Ramirez on 07-24-2022 Urea nitrogen [Mass/Vol] 25 mg/dL 7-18 [facility] Thin prep Papanicolaou smear with manual screeningOrdered By: Harpal Ramirez on 07-24-2022 Thin prep Papanicolaou smear with manual screening 5 5-15 [facility] CASE MANAGEMon 06-24-2022 CASE MANAGEM HNO ID: [id number] Author: LATRICE Munoz Service: Social Work Author Type: Sales Planning Analyst Type: Care Mgt Progress Note Filed: 06/24/2022 1:34 PM Note Text: BEHAVIORAL HEALTH SOCIAL WORK DISCHARGE NOTE SERVICE DATE: 06/24/2022 SERVICE TIME: 10:30 am Discharge Information Row Name Admission (Current) from 06/06/2022 in [facility] Adult Behavioral Health-[facility] Psychiatry Follow-Up Appointment Psychiatrist Name Pt to be followed at facility Guardian/Surrogate Decision Maker Name Daughter Jennifer Hidalgo is POA Discharge Disposition Discharge Disposition Custodial Custodial Referral Information Agency Name [facility] Address [address], [place] [address] Additional Discharge Information Additional Discharge Resources Jeana: [phone] Patient/Sanitation Lead Agreeable With Discharge Plan: Yes FREEDOM OF CHOICE EXPLAINED? Yes. A list of appropriate referrals presented to/discussed with POA on 06/07/22 at 1200 Patient/Sanitation Lead Given/Explained Medicare Discharge Notice (IM letter): Yes (Date and Time): 06/06/22 at 11:55 am TRANSPORTATION ARRANGEMENTS: Mode of Transportation: Ambulance Transportation Agency and Phone #: [facility] [phone] . Date of Trip: 06/24/22 Type of Service: BLS Non-emergency Is Patient Medicaid Pending: No PRESCRIPTIONS FILLED PRIOR TO DISCHARGE: No, patient discharged to detention ADDITIONAL NOTES: SW discussed Pt in treatment team and observed her on unit. No acute safety concerns at this time, no SI/HI/SIB or AVH. Family is aware and agreeable to discharge plan above. No further SW intervention required, per MD Pt is adequate for discharge. SIGNATURE: LATRICE Munoz PATIENT NAME: Chay Teague DATE: June 24, 2022 TIME: 11:00 AM Normal [facility] CNDSon 06-24-2022 CNDS HNO ID: [id number] Author: John Penny MD Service: Psychiatry Author [...] performed Hospital Course: Patient was admitted to [facility] after she appeared to [facility] for wandering behavior; behavioral disturbances; was found to suffer UTI, received IV Rocephin. Patient brought in from home by family for confusion, suffered frontal lobe dementia and multiple medical problems, countdown to suffer UTI. Daughter brought the patient to the ED. Daughter is power of civil attorney after she contacted by the local [...] she is on a waiting list for [facility]. 06/07/2022 Seen in day area Said she feels okay Disoriented Pleasant during the interview 06/08/2022een in day area Confused 06/09/2022atient is compliant with medications No adverse reactions to medications Sleep is good 5 hrs Appetite is good 06/10/2022 in day area Euphoric singing with TV music disinhibited 06/11/2022 in day area Confused PMA 06/12/2022een in day area insomnia 06/13/2022 in room [...] Patient Condition @ Discharge: Stable Discharge Disposition: Intermediate Facility Complications: None ASSESSMENT: The status of [...] (Oral) Resp 18 (more content not included)... [facility] NURSING PROGon 06-24-2022 NURSING PROG HNO ID: [id number] Author: Robyn Roman RN Service: ? Author Type: Registered Nurse Type: Nursing Progress Note Filed: 06/24/2022 2:21 PM Note Text: Daily Note: Pt in day area at change of shift, meal and medication compliant. She will be discharged today, promotion writer attempted multiple time to call facility however was left on hold then disconnected. Broset Score-0 [facility] NURSING PROG HNO ID: [id number] Author: Zelda Serrano RN Service: Behavioral Health Author Type: Registered Nurse Type: Nursing Progress Note Filed: 06/24/2022 6:19 AM Note Text: Other: Pt is resting quietly in bed; monitor for safety q 15 min. Broset 1 0600 pt slept 7 hrs [facility] NURSING PROG HNO ID: [id number] Author: Albert Bryan RN Service: Behavioral Health [...] 15 minutes rounds observed at all times. [facility] NURSING PROGon 06-23-2022 NURSING PROG O ID: [id number] Author: Wesley Espinal RN Service: Nursing Author [...] pleasant. Broset:2 Q15 minute safety checks maintained [facility] NURSING [facility] ID: [id number] Author: Albert Bryan RN Service: Behavioral Health [...] calm and pleasant. Will continue to monitor. [facility] NURSING PROGon 06-22-2022 NURSING [facility] ID: [id number] Author: Robyn Roman RN Service: ? Author Type: Registered Nurse Type: Nursing Progress Note Filed: 06/22/2022 6:44 PM Note Text: Daily Note: Pt in bed at change of shift,meal and medication compliant, pt behavior is in control for most of the shift, she has been yelling out but easily redirectable. Broset Score-0 [facility] NURSING [facility] ID: [id number] Author: Mar Barros RN Service: Nursing Author [...] area reading a magazine, in good spirits. Normal [facility] CASE MANAGEMon 06-21-2022 CASE MANAGEM HNO ID: [id number] Author: LATRICE Munoz Service: Social Work Author Type: Sales Planning Analyst Type: Care Mgt Progress Note Filed: 06/21/2022 1:20 PM Note Text: BEHAVIORAL HEALTH SOCIAL WORK PROGRESS NOTE SERVICE DATE: 06/21/2022 SERVICE TIME: 1320 Pt is scheduled for discharge on Friday06/24/22 to [facility]. Transport is scheduled for 2:00 pm via [facility] (trip #[id number]). Pt will need LOC and SW to submit for one on Friday morning prior to discharge. SW to follow. SIGNATURE: LATRICE Munoz PATIENT NAME: Chay Teague DATE: June 21, 2022 TIME: 8:53 AM [facility] NURSING PROGon 06-21-2022 NURSING PROG HNO ID: [id number] Author: Teo López RN Service: Behavioral Health [...] 15 min safety checks maintained. Will monitor. [facility] NURSING PROG HNO ID: [id number] Author: Taylor North RN Service: Nursing Author Type: Registered Nurse Type: Nursing Progress Note Filed: 06/21/2022 7:06 AM Note Text: Nursing Progress Note Patient Name: Chay Teague Patient Location: [id number] -02 Daily Note: Received report and assumed [...] This note was completed by: Taylor North [facility] CASE MANAGEMon 06-20-2022 CASE MANAGEM HNO ID: [id number] Author: LATRICE Munoz Service: Social Work Author Type: Sales Planning Analyst Type: Care Mgt Progress Note Filed: 06/20/2022 2:18 PM Note Text: BEHAVIORAL HEALTH SOCIAL WORK PROGRESS NOTE SERVICE DATE: 06/20/2022 SERVICE TIME: 1:30 pm SW faxed updates to [facility] and spoke to director of exhibit development Estephania on the phone to notify of plan for discharge on Friday. SW to confirm discharge projection and schedule transportation. SW to follow. SIGNATURE: LATRICE Munoz PATIENT NAME: Chay Teague DATE: June 20, 2022 TIME: 2:17 PM [facility] NURSING PROGon 06-20-2022 NURSING PROG HNO ID: [id number] Author: Melisa Peña RN Service: Behavioral Health [...] cooperative with hands on care. Will monitor [facility] NURSING PROG HNO ID: [id number] Author: Zelda Serrano RN Service: Behavioral Health [...] am care completed then pt resumed sleeping. [facility] NURSING [facility] ID: [id number] Author: Nakul Allan RN Service: ? Author [...] observation. No additional issues at this time. [facility] NURSING PROGon 06-19-2022 NURSING [facility] ID: [id number] Author: Teo López RN Service: Behavioral Health [...] continence. Assist x1 for ambulation. Pt is [place]. Pt medication compliant whole with applesauce constant encouragement. No behavioral issues noted at this moment. No agitation noted. 15 min safety checks maintained. Will monitor [facility]URSING [facility] ID: [id number] Author: Vitaliy Basurto RN Service: Nursing Author Type: Registered Nurse Type: Nursing Progress Note Filed: 06/19/2022 7:58 AM Note Text: Other: 2100 Pt was seen awake and pleasant upon approach sitting in a christine-chair in the day area but a little irritable when vital signs were taken. Pt is confused, [place] and needs constant cuing and encouragement with [...] after diaper changed. 0700 Slept 7 hrs. [facility] CASE MANAGEMon 06-18-2022 CASE MANAGEM HNO ID: [id number] Author: LATRICE Munoz Service: Social Work Author Type: Sales Planning Analyst Type: Care Mgt Progress Note Filed: 06/18/2022 10:50 AM Note Text: BEHAVIORAL HEALTH SOCIAL WORK PROGRESS NOTE SERVICE DATE: 06/18/2022 SERVICE TIME: 0900 SW provided update to Pt's daughter Rachel Riojas ([phone]) as Pt's other daughter, Jennifer iHdalgo, is on vacation this week. Pt unable to discharge until at least 06/22/22 when new insurance (in network with [facility]) goes into effect. SW to follow. SIGNATURE: LATRICE Munoz PATIENT NAME: Chay Teague DATE: June 18, 2022 TIME: 9:18 AM [facility] NURSING PROGon 06-18-2022 NURSING PROG HNO ID: [id number] Author: Teo López RN Service: Behavioral Health [...] Tremors noted. Appetite is good. Pt is [place]. A/O to self pleasantly confused. No behavioral issues noted. 15 min safety checks maintained. Will monitor. [facility] NURSING PROG HNO ID: [id number] Author: Taylor North RN Service: Nursing Author Type: Registered Nurse Type: Nursing Progress Note Filed: 06/18/2022 6:07 AM Note Text: Nursing Progress Note Patient Name: Chay Teague Patient Location: [id number] -02 Daily Note: Received report and assumed [...] hrs, Broset-1. This note was completed by: [facility] THERAPY NTon 06-18-2022 THERAPY NT HNO ID: [id number] Author: Bre Roberts, PT Service: Physical Therapy Author Type: Physical Therapist Type: Therapy (PT/OT/Speech/Resp) Filed: 06/18/2022 4:15 PM Note Text: Physical Therapy Treatment SERVICE DATE: 06/18/2022 SERVICE TIME: 1514 to 1541 ROOM: [id number] Recommended Discharge Disposition: Subacute/SNF Recommended Discharge Disposition [...] Past Medical History: advanced age, BMI 34.17; [place], HTN, asthma, hypothyroid, dementia, anxiety/depression Response to [...] family checks in at night. Assistance Available: timekeeper Prior Functional Level: Required Assistance Assistance Required [...] minimal verbalizations, limited engagement due to significant [place]; states name and CURRENT FUNCTIONAL STATUS: Most [...] resolve all f (more content not included)... [facility] NURSING PROGon 06-17-2022 NURSING PROG HNO ID: [id number] Author: Melisa Peña RN Service: Behavioral Health [...] calm and cooperative will monitor broset 1 [facility] NURSING PROG HNO ID: [id number] Author: Vitaliy Basurto RN Service: Nursing Author Type: Registered Nurse Type: Nursing Progress Note Filed: 06/17/2022 7:01 AM Note Text: Other: 2130 Pt seems to be more quiet in [...] 8 hrs. Cooperative with hands on care. [facility] NURSING PROGon 06-16-2022 NURSING PROG HNO ID: [id number] Author: Manda Proctor RN Service: Nursing Author [...] visit this afternoon. Will continue to monitor. [facility] NURSING PROG HNO ID: [id number] Author: Vitaliy Basurto RN Service: Nursing Author [...] Broset -1. 0700 Slept for 7 hrs. [facility] NURSING PROGon 06-15-2022 NURSING PROG HNO ID: [id number] Author: Soniya Hubbard RN Service: Nursing Author Type: Registered Nurse Type: Nursing Progress Note Filed: 06/15/2022 1:54 PM Note Text: Nursing Progress Note Topic of Note: Daily Note Chay Teague [id number] Assumed care of the pt at 0700. The pt is AANDOX1, confused and forgetful. Pt C/O no pain or discomfort at this time. The pt is disruptive at times calling out "please help me help me " while tapping on the table. Pt is redirectable. The pt is medication compliant whole. The pt is pleasant on approach.the pt is [place]. The pt is an assist for all care. The pt is incontinent. Pt up in the day area for close monitoring. 15 min safety checks maintained. Will continue to monitor. This note was completed by: Soniya Hubbard [facility] CASE MANAGEMon 06-14-2022 CASE MANAGEM HNO ID: [id number] Author: LATRICE Munoz Service: Social Work Author Type: Sales Planning Analyst Type: Care Mgt Progress Note Filed: 06/14/2022 2:38 PM Note Text: BEHAVIORAL HEALTH SOCIAL WORK PROGRESS NOTE SERVICE DATE: 06/14/2022 SERVICE TIME: 1320 SW called Estephania in [facility] admissions ([phone]) and provided detailed update. SW to await return phone call. No specific discharge date identified at this time. SW to follow. Update 1430: ASHLEY received return call from facility stating that admission would have to wait until appropriate insurance is in place on 06/22/22. SIGNATURE: LATRICE Munoz PATIENT NAME: Chay Teague DATE: June 14, 2022 TIME: 8:31 AM [facility] NURSING PROGon 06-14-2022 NURSING PROG HNO ID: [id number] Author: Mendez Nguyen RN Service: ? Author [...] Date: June 14, 2022 Time: 9:26 PM [facility] NURSING PROG HNO ID: [id number] Author: Corrina Chandler RN Service: Nursing Author Type: Registered Nurse Type: Nursing Progress Note Filed: 06/14/2022 7:07 PM Note Text: Other: Pt. Is visible on this unit. No s/s of distress noted. Compliant with medications. Continues to be confused. Constantly asking staff for help and if she's ok. Fair appetite for meals. Will continue to monitor. [facility] NURSING PROG HNO ID: [id number] Author: Albert Bryan RN Service: Behavioral Health [...] this time asleep. Will continue to monitor. [facility] CASE MANAGEMon 06-13-2022 CASE MANAGEM HNO ID: [id number] Author: LATRICE Munoz Service: Social Work Author Type: Sales Planning Analyst Type: Care Mgt Progress Note Filed: 06/13/2022 [...] Daughter was able to complete enrollment for [facility] dual advantage, effective date 06/22/22. SW to update facility and determine particulars of admission policy regarding future coverage. SW to follow. SIGNATURE: LATRICE Munoz PATIENT NAME: Chay Teague DATE: June 13, 2022 TIME: 11:10 AM [facility] NURSING PROGon 06-13-2022 NURSING PROG HNO ID: [id number] Author: Melisa Peña, RN Service: Behavioral Health [...] visit this yudith will monitor broset 2 [facility] NURSING PROG HNO ID: [id number] Author: Vitaliy Basurto RN Service: Nursing Author Type: Registered Nurse Type: Nursing Progress Note Filed: 06/13/2022 6:07 AM Note Text: Other: 0000 Assumed care of pt. Received pt sleeping in bed, no signs of distress noted. No behavioral issue noted. Safety precautions maintained. 0700 Pt slept well for 9 hrs throughout the night. Behavior in control. Broset -1 (confused) [facility] NUTRITIONon 06-13-2022 NUTRITION HNO ID: [id number] Author: Yoly Pan RD Service: Nutrition Therapy [...] DATE: June 13, 2022 TIME: 1:14 PM [facility] CASE MANAGEMon 06-12-2022 CASE MANAGEM HNO ID: [id number] Author: LATRICE Munoz Service: Social Work Author Type: Sales Planning Analyst Type: Care Mgt Progress Note Filed: 06/12/2022 1:50 PM Note Text: BEHAVIORAL HEALTH SOCIAL WORK PROGRESS NOTE SERVICE DATE: 06/12/2022 SERVICE TIME: 1200 SW faxed clinicals to [facility]. industrial engineering director informed SW that they are not in network with [employer] and only have [employer]. SW called Pt's daughter to update and she states that she will apply for [facility] Medicaid and that [facility] remain their first FOC. ASHLEY updated facility as to same. SIGNATURE: LATRICE Munoz PATIENT NAME: Chay Teague DATE: June 12, 2022 TIME: 1:19 PM [facility] NURSING PROGon 06-12-2022 NURSING PROG HNO ID: [id number] Author: Leticia Barker RN Service: Nursing Author [...] given. Broset-1, will continue assault, fall precs. [facility] NURSING PROG HNO ID: [id number] Author: Iva Bailey RN Service: Behavioral Health [...] are noted, anxious, Will cont to monitor. [facility] NURSING PROG HNO ID: [id number] Author: Gilbert Watson RN Service: ? Author [...] yelling this morning while in day area. [facility] CASE MANAGEMon 06-11-2022 CASE MANAGEM HNO ID: [id number] Author: LATRICE Munoz Service: Social Work Author Type: Sales Planning Analyst Type: Care Mgt Progress Note Filed: 06/11/2022 1:50 PM Note Text: BEHAVIORAL HEALTH SOCIAL WORK PROGRESS NOTE SERVICE DATE: 06/11/2022 SERVICE TIME: 1300 SW received return call from Estephania in admissions at [facility]. She states that Pt would be coming LTC and would need a PAS (SW submitted for one and received favorable determination). She provided fax: [phone] for clinical information and her work cell for updates: [phone]. SW to send updated information. SW to follow. SIGNATURE: LATRICE Munoz PATIENT NAME: Chay Teague DATE: June 11, 2022 TIME: 9:17 AM [facility] NURSING PROGon 06-11-2022 NURSING PROG HNO ID: [id number] Author: Melisa Peña RN Service: Behavioral Health [...] bm. Pt calm and cooperative will monitor [facility] NURSING PROG HNO ID: [id number] Author: Taylor North RN Service: Nursing Author Type: Registered Nurse Type: Nursing Progress Note Filed: 06/11/2022 6:16 AM Note Text: Nursing Progress Note Patient Name: Chay Teague Patient Location[place] [address] [address] -02 Daily Note: Received report and assumed care of patient at 1900. Patient seen in day area in christine chair. Pleasantly confused. Friendly with other patients and staff. Can be intrusive at times, observed patting other Patient's knee. Freelance Translator redirected Patient and educated on appropriate behavior. Patient cooperative with teaching. Med compliant whole in applesauce, but did spit out Colace gel capsule several times due to confusion. Denies pain. Assist of 1 to room. Safety maintained. 0600 Patient slept 5 hrs, Broset-1. This note was completed by: Taylor North [facility] THERAPY NTon 06-11-2022 THERAPY NT HNO ID: [id number] Author: Amarilys Salguero PTA Service: Physical Therapy Author Type: Laundry Clerk Type: Therapy (PT/OT/Speech/Resp) Filed: 06/11/2022 1:16 PM Note Text: ----- Attestation signed by Lisa Perez PT at 06/11/2022 1:24 PM I reviewed and agree with the documentation corresponding to this therapy visit. SIGNATURE: Lisa Perez, MARIAH DATE: June 11, 2022 TIME: 1:24 PM ----- Physical Therapy Treatment SERVICE DATE: 06/11/2022 SERVICE TIME: 1155 to 1220 ROOM: [place] [address] Recommended Discharge Disposition: Home PT Recommended Discharge [...] family checks in at night. Assistance Available: timekeeper Prior Functional Level: Required Assistance Assistance Required [...] Potential: Go (more content not included)... Normal [facility] Valproate SerPl-mCncon 06-11 Valproate [Mass/Vol] 49.5 ug/mL Low 50.0-100.0 [facility] Comment on above: Order Comment: Speci men Type: BLOOD SPECIMENOrdering Facility: [facility] Address: [address] [place] [id number] Result Comment: Refe rence ranges and high/low indicator flags are provided as general guidelines only. The treating physician must determine appropriate target levels/dosing based on the specific clinical situation. Performed By: #### 4 086-5 ####[facility] LABORATORYCLIA [id number] [address] [place] CASE MANAGEMon 06-10-2022 CASE MANAGEM HNO ID: [id number] Author: LATRICE Munoz Service: Social Work Author Type: Sales Planning Analyst Type: Care Mgt Progress Note Filed: 06/10/2022 2:07 PM Note Text: BEHAVIORAL HEALTH SOCIAL WORK PROGRESS NOTE SERVICE DATE: 06/10/2022 SERVICE TIME: 1300 SW placed call to [facility] admission department. SW informed admission director was [...] DATE: June 10, 2022 TIME: 2:05 PM [facility] NURSING PROGon 06-10-2022 NURSING PROG HNO ID: [id number] Author: Melisa Peña RN Service: Behavioral Health Author Type: Registered Nurse Type: Nursing Progress Note Filed: 06/10/2022 5:20 PM Note Text: Other: nursing [id number] was [facility] pt was one assist with [...] cooperative with hands on care will monitor [facility] NURSING PROGon 06-09-2022 NURSING PROG HNO ID: [id number] Author: Mendez Nguyen RN Service: ? Author [...] Date: June 09, 2022 Time: 9:49 PM [facility] NURSING PROG HNO ID: [id number] Author: Teo López RN Service: Behavioral Health [...] 15 min safety checks maintained. Will monitor. [facility] NURSING PROGon 06-08-2022 NURSING PROG HNO ID: [id number] Author: Mendez Nguyen RN Service: ? Author [...] Date: June 08, 2022 Time: 10:32 PM [facility] NURSING PROG HNO ID: [id number] Author: Gilbert Watson RN Service: ? Author [...] remained cooperative with care, incontinent of bladder. [facility] CASE MANAGEMon 06-07-2022 CASE MANAGEM HNO ID: [id number] Author: LATRICE Munoz Service: Social Work Author Type: Sales Planning Analyst Type: Care Mgt Progress Note Filed: 06/07/2022 12:14 PM Note Text: BEHAVIORAL HEALTH SOCIAL WORK PROGRESS NOTE SERVICE DATE: 06/07/2022 SERVICE TIME: 12:00 pm Pt discussed in treatment team and observed on unit. Pt does appear more alert and organized than on previous day. She will remain inpatient through the weekend. SW to submit PAS on Friday (06/10/22) and follow units with [facility] with updated clinical information. SW to follow. SIGNATURE: LATRICE Munoz PATIENT NAME: Chay Teague DATE: June 07, 2022 TIME: 8:42 AM [facility] Lipid 1996 panelon 2 Cholesterol [Mass/Vol] 217 mg/dL High <200 [facility] Comment on above: Order Comment: Speci men Type: BLOOD SPECIMENOrdering Facility: [facility] Address: [address] [place], [place] [id number] Result Comment: <200 mg/dL, Desirable 200-239 mg/dL, Borderline high >239 mg/dL, High Performed By: #### 2 4331-1 ####[facility] LABORATORYCLIA [id number] [place] [address] [place] Cholesterol in HDL [Mass/Vol] 75 mg/dL Normal >39 [facility] Comment on above: Order Comment: Speci men Type: BLOOD SPECIMENOrdering Facility: [facility] Address: [address] [place] [id number] Result Comment: 40-5 9 mg/dL, Acceptable >59 mg/dL, High: Negative risk factor for coronary heart disease <40 mg/dL, Low: Positive risk factor for coronary heart disease Performed By: #### 2 4331-1 ####[facility] LABORATORYCLIA [id number] [place] [address] [place] Cholesterol in LDL [Mass/Vol] 124 mg/dL High <100 [facility] Comment on above: Order Comment: Speci men Type: BLOOD SPECIMENOrdering Facility: [facility] Address: [address] [address] Result Comment: <100 mg/dL, Optimal 100-129 mg/dL, Near optimal/above optimal 130-159 mg/dL, Borderline high 160-189 mg/dL, High >189 mg/dL, Very high Secondary prevention optimal LDL Cholesterol levels are recommended to be < 70 mg/dL Performed By: #### 2 4331-1 ####[facility] LABORATORYCLIA [id number] [place] [address] [place] Cholesterol in LDL/Cholesterol in HDL [Mass ratio] 1.65 {ratio} Normal <2.54 [facility] Comment on above: Order Comment: Speci men Type: BLOOD SPECIMENOrdering Facility: [facility] Address: [address] [place] [address] Result Comment: Refe rence: 1. National Cholesterol Education Program ATP III Guideline At-A-Glance Quick Desk Reference: National Heart, Lung, and Blood [place]. National Institutes of Health. 2001: NIH Publication No. 01-3305. 2. An International Atherosclerosis Society position paper: global recommendations for the management of dyslipidemia: executive summary, Atherosclerosis. 2014: 232(2):410-413. Performed By: #### 2 4331-1 ####[facility] LABORATORYCLIA [id number] [place] [address] [place] Cholesterol in VLDL [Mass/Vol] 18 mg/dL Normal <30 [facility] Comment on above: Order Comment: Speci men Type: BLOOD SPECIMENOrdering Facility: [facility] Address: [address] [address] Performed By: #### 2 4331-1 ####[facility] LABORATORYCLIA [id number] [place] [id number] [place] Cholesterol non HDL [Mass/Vol] 142 mg/dL High <130 [facility] Comment on above: Order Comment: Speci men Type: BLOOD SPECIMENOrdering Facility: [facility] Address: [address] [place] [address] Result Comment: <130 mg/dL, Optimal 130-159 mg/dL, Near optimal/above optimal 160-189 mg/dL, Borderline high 190-219 mg/dL, High >219 mg/dL, Very high Secondary prevention optimal non HDL Cholesterol levels are recommended to be <100 mg/dL Performed By: #### 2 4331-1 ####[facility] LABORATORYCLIA [id number] [address] Cholesterol.total/Chol esterol in HDL [Mass ratio] 2.89 {ratio} Normal <5.10 [facility] Comment on above: Order Comment: Speci men Type: BLOOD SPECIMENOrdering Facility: [facility] Address: [address] [place] [address] Performed By: #### 2 4331-1 ####[facility] LABORATORYCLIA [id number] [address] FASTING TIME 8 hrs Normal [facility] Comment on above: Order Comment: Speci men Type: BLOOD SPECIMENOrdering Facility: [facility] Address: [address] [place] [address] Performed By: #### 2 4331-1 ####[facility] LABORATORYCLIA [id number] [address] Triglyceride [Mass/Vol] 91 mg/dL Normal <150 [facility] Comment on above: Order Comment: Speci men Type: BLOOD SPECIMENOrdering Facility: [facility] Address: [address] [place] [address] Result Comment: <150 mg/dL, Normal 150-199 mg/dL, Borderline high 200-499 mg/dL, High >499 mg/dL, Very high Performed By: #### 2 4331-1 ####[facility] LABORATORYCLIA [id number] [place] [id number] [facility] NURSING PROGon 06-07-2022 NURSING PROG HNO ID: [id number] Author: Teo López RN Service: Behavioral Health [...] MOM given for c/o of constipation. Pt [place], hearing aid on. Pt needs to be fed. Pt answer to every question is "I dont know". Visible tremors on assessment. 15 min safety checks maintained. Will monitor. [facility] NURSING PROG HNO ID: [id number] Author: Gilbert Watson RN Service: ? Author [...] her 0600 medication, remained cooperative with care. [facility] ALLIED HEALTHon 06-06-2022 ALLIED HEALTH HNO ID: [id number] Author: MYRON Talbot Service: Recreational Therapy Author [...] 06, 2022 TIME: 8:26 AM PAGER/CONTACT #: [facility] ALLIED HEALTH HNO ID: [id number] Author: MYRON Talbot Service: Recreational Therapy Author [...] 06, 2022 TIME: 8:20 AM PAGER/CONTACT #: [facility] CASE MGT INIT Michelle 2021 CASE MGT INJUAN DIEGO ALMAGUER HNO ID: [id number] Author: LATRICE Munoz Service: Social Work Author Type: Sales Planning Analyst Type: Care Mgt Initial Assessment Filed: 06/06/2022 12:23 PM Note Text: BEHAVIORAL HEALTH SOCIAL WORK/CARE MANAGEMENT ASSESSMENT AND DISCHARGE PLAN SERVICE DATE: 06/06/2022 SERVICE TIME: 11:00 am Reason for Admission: Per intake: "Chay Teague is a 77 year old female brought in to [place] ED from Home by family for confusion. [...] not steal the car back for her. Freelance Translator attempted interview with pt telephonically. It was [...] information obtained from pt's daughter, Jennifer Hidalgo ([phone]). 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 Her childhood [...] Needs: Not on file Health Insurance: PRIMARY: [facility] Medicare SECONDARY: [facility] Medicaid Status (including history of combat experience): None Legal History: Patient/Sanitation Lead Denies Mandaeism/Spirituality: Bahai PSYCHIATRIC HISTORY: None Violence Risk to Self: In the past 6 months have you had thoughts of killing yourself or suicidal ideations? No In the past 6 months, have you made plans/preparations and/or had an intent to act upon these suicidal ideas/thoughts? No Has Patient Been Hospitalized Previously for Psychiatric Reasons? No, Patient/Sanitation Lead denies Substance Use and Treatment History: Patient/Sanitation Lead Denies Lab Results Negative for Tested Substances Do special considerations/accommodat ions need to be made (i.e. preferred language, literacy, gender identity, physical disability such as deaf or blind, etc)? No, Patient/Sanitation Lead Denies Are there practices or beliefs that may affect or influence treatment? No, Patient/Sanitation Lead Denies Patient Strengths/Protective Factors (Minimum of Two): Sobriety Stable Housing Stabl (more content not included)... Normal [facility] CONSULTon 06-06-2022 CONSULT HNO ID: [id number] Author: Beba Bray MD Service: ? Author [...] Medical clearance , Pt was transferred to [facility] for further psychiatric treatment. Consultation was obtained [...] No history of dysuria, frequency or incontinence INSIDE SALES ACCOUNT EXECUTIVE: Negative for abnormal vaginal, bleeding, abnormal vaginal [...] are normal.Teeth and (more content not included)... [facility] ED NOTEon 06-06-2022 ED NOTE HNO ID: [id number] Author: Zaid Cuello RN Service: ? Author Type: Registered Nurse Type: ED Notes Filed: 06/06/2022 3:47 AM Note Text: SBAR report to [facility] transport team, patient care handed off without incident. [facility] ED NOTE HNO ID: [id number] Author: Liz Perry RN Service: ? Author Type: Registered Nurse Type: ED Notes Filed: 06/06/2022 2:37 AM Note Text: Pt report called to Riana kidd with RN. [facility] ED NOTE HNO ID: [id number] Author: Liz Perry RN Service: ? Author Type: Registered Nurse Type: ED Notes Filed: 06/06/2022 12:48 AM Note Text: Intake on the phone with RN about admission. [facility] ED NOTE HNO ID: [id number] Author: Liz Perry RN Service: ? Author Type: Registered Nurse Type: ED Notes Filed: 06/06/2022 12:49 AM Note Text: Pt is still attempting to get out of bed and is restless, MD made aware and medications ordered, [facility] ED NOTE HNO ID: [id number] Author: Liz Perry RN Service: ? Author Type: Registered Nurse Type: ED Notes Filed: 06/06/2022 12:22 AM Note Text: Intake attempted to interview pt. [facility] ED NOTE HNO ID: [id number] Author: Liz Perry RN Service: ? Author Type: Registered Nurse Type: ED Notes Filed: 06/05/2022 10:59 PM Note Text: Intake on the phone with MD [facility] ED NOTE HNO ID: [id number] Author: Liz Perry RN Service: ? Author Type: Registered Nurse Type: ED Notes Filed: 06/05/2022 10:46 PM Note Text: Pts daughter on the phone with intake [facility] ED NOTE HNO ID: [id number] Author: Liz Perry RN Service: ? Author Type: Registered Nurse Type: ED Notes Filed: 06/05/2022 10:02 PM Note Text: Pt is sleeping in bed with call light in reach. Equal chest rise and fall noted with regular respirations. Bed is locked and in the lowest position. No acute distress noted. Safety maintained. Will continue to monitor. [facility] ED PROV NOTEon 06-06-2022 ED PROV NOTE HNO ID: [id number] Author: Mendez Arellano MD Service: Emergency Medicine Author Type: Physician Type: ED Provider Notes Filed: 06/06/2022 4:14 AM Note Text: ED CONTINUATION OF CARE NOTE Code Status: Full Code Assumed care from: Dr Taylor Presentation / Findings / Interventions / Plan / Items to Follow Up: Patient signed out pending admission to geriatric at [facility]. Central intake arrange for patient to be admitted to [facility] geriatric psych and is accepting. ED Course as of 06/06/22413 Others' Documentation FriJun 05, 20222047 ECG Complete W Interpretation ED EKG INTERPRETATION: Normal sinus rhythm at 95 beats per minute Left axis deviation Incomplete right bundle branch block. LVH Nonspecific ST-T changes. No acute injury pattern. Interpretation by ED physician [BT] ED Course User Index [BT] Riccardo Taylor, DO Clinical Impressions as of 06/06/22413 Confusion Dementia with behavioral disturbance, unspecified dementia type (HCC) Acute cystitis without hematuria SIGNATURE: Mendez Arellano MD PATIENT NAME: Chay Teague DATE: June 06, 2022 TIME: 1:28 AM PAGER/CONTACT #: Mendez Arellano MD 06/06/22413 Normal [facility] HISTORY PHYSICALon HISTORY PHYSICAL HNO ID: [id number] Author: John Penny MD Service: Psychiatry Author Type: Physician Type: HANDP Filed: 06/07/2022 5:42 AM Note Text: [facility] Behavioral Health Admit Note ORIGINATOR: John Penny MD CHAY TEAG[place] ACCTNUM: [id number] SERVICE: [facility] LOCATION: [address] [place] [address] ATTENDING PHYSICIAN: JOHN PENNY DATE OF SERVICE: 06/06/2022 IDENTIFYING INFORMATION: The patient is a 77-year-old female. HISTORY OF PRESENT ILLNESS: Patient was admitted to [facility] after she appeared to [place] [facility] for wandering behavior; behavioral disturbances; was found to suffer UTI, received IV Rocephin. Patient brought in from home by family for confusion, suffered frontal lobe dementia and multiple medical problems, countdown to suffer UTI. Daughter brought the patient to the ED. Daughter is power of civil attorney after she contacted by the local [...] she is on a waiting list for [facility]. PAST PSYCHIATRIC HISTORY: Patient has extensive [...] home. Daughter is supportive and power of civil attorney. She has a home health aide. [...] Date Value 06/05/2022 (more content not included)... [facility] NURSING PROGon 06-06-2022 NURSING PROG HNO ID: [id number] Author: Manda Proctor RN Service: Nursing Author [...] Poor appetite- refused to eat all meals. [facility] NURSING PROG HNO ID: [id number] Author: Wesley Espinal RN Service: Nursing Author Type: Registered Nurse Type: Nursing Progress Note Filed: 06/06/2022 5:24 AM Note Text: Transfer note: Patient brought onto the unit in stable condition via EMS from [place] ED. Patient is tearful and yelling upon [...] 77 year old female brought in to [place] ED from Home by family for confusion. [...] not steal the car back for her. Freelance Translator attempted interview with pt telephonically. It was [...] information obtained from pt's daughter, Jennifer Hidalgo ([phone]). Daughter reports that pt has underlying dementia, [...] with pt being on the waitlist at [facility]. [facility] NURSING PROG HNO ID: [id number] Author: Zelda Serrano RN Service: Behavioral Health [...] 06/09/22 Progress Towards Short Term Goals: Progressing Cafeteria Operator Goals: Patient will have achieved optimal level of functioning;Patient will verbalize benefits of compliance with medication and treatment after discharge;Patient will participate in cognitive, physical and social activities Target Date Cafeteria Operator Goals: 06/13/22 Progress Towards Cafeteria Operator Goals: Progressing Interventions - Nursing: Offer frequent [...] patient/family. Attending Psychiatrist: Dr Penny DOCUMENTED BY: Zleda Serrano RN PATIENT NAME: Chay Teague DATE: June 06, 2022 TIME: 5:12 AM [facility] THERAPY NTon 06-06-2022 THERAPY NT HNO ID: [id number] Author: Shellie Saavedra OT/L Service: Occupational Therapy Author Type: Occupational Therapist Type: Therapy (PT/OT/Speech/Resp) Filed: 06/07/2022 9:56 AM Note Text: Occupational Therapy Evaluation SERVICE DATE: 06/06/2022 SERVICE TIME: 1330 to 1355 ROOM: [place] [address] Recommended Discharge Disposition: Home OT Anticipated Discharge [...] family checks in at night. Assistance Available: timekeeper Prior Functional Level: Required Assistance Assistance Required [...] of daily living (ADL) Interventions Provided: Evaluation;Self Halfway Management (81112) $ Evaluation-Low (38747) Billed Units: 1 unit Self Halfway Management (96110) Treatment Minutes: 10 $ Self Halfway Management (55520) Billed Units: 1 unit Timed Code Treatment (minutes): 10 Skilled Treatment Time (minutes): 25 Please see discipline specific clinical documentation flowsheet for complete details for this therapy evaluation/treatment. SIGNATURE: Shellie Saavedra OT/Sheldon PATIENT NAME: Chay Teague DATE: June 06, 2022 TIME: 1:30 PM [facility] THERAPY NT HNO ID: [id number] Author: Bonnie Nuñez PT Service: Physical Therapy Author Type: Physical Therapist Type: Therapy (PT/OT/Speech/Resp) Filed: 06/06/2022 8:41 AM Note Text: Physical Therapy Evaluation SERVICE DATE: 06/06/2022 SERVICE TIME: 0810 to 0820 ROOM: [address] [place] [address] Recommended Discharge Disposition: Home PT Recommended Discharge [...] family checks in at night. Assistance Available: timekeeper Prior Functional Level: Required Assistance Assistance Required [...] on feet Interventions Provided: Evaluation $ Evaluation-Low (58031) Billed Units: 1 unit Training AND education [...] DATE: June 06, 2022 TIME: 8:40 AM [facility] HNO ID: [id number] Author: RT Sabrina(R) Service: Radiology Author Type: Technologist Type: [facility] Filed: 06/05/2022 8:12 PM Note Text: Radiology [...] RT Sabrina(R) June 05, 2022 8:12 PM [facility] HNO ID: [id number] Author: JESSIE Duke Service: Radiology Author Type: Technologist Type: [facility] Filed: 06/05/2022 7:52 PM Note Text: [...] Duke June 05, 2022 7:52 PM Normal [facility] Bacteria Ur Culton 2 Bacteria identified Cx Nom (U) [id number] Abnormal [facility] Comment on above: Order Comment: Speci men Type: URINE SPECIMENOrdering Facility: [facility] Address: [address] [address] Result Comment: <10, 000 CFU/ml Mixed microbiota No further workup. Mixed microbiota can be due to???urine???contamination with skin bacteria at time of collection or presence of a long-term urinary catheter. If a new culture is needed, please consider re-education of the patient on proper midstream collection technique or straight catheterization for???urine???collection. Performed By: #### 6 30-4 ####[facility] LABCLIA [id number] [address] [place] CBC W Auto Differential pane l (Bld)on 06-05-2022 Basophils (Bld) [#/Vol] 0.07 10*3/uL Normal <0.11 [facility] Comment on above: Order Comment: Speci men Type: BLOOD SPECIMENOrdering Facility: [facility] Address: [address] [address] Performed By: #### 5 7021-8 ####[place] LABORATORYCLIA [id number] [address] [place] Basophils/100 WBC (Bld) 0.8 % Normal [facility] Comment on above: Order Comment: Speci men Type: BLOOD SPECIMENOrdering Facility: [facility] Address: [address] Performed By: #### 5 7021-8 ####[facility] LABORATORYCLIA [id number] [address] Differential cell count method Nom (Bld) Auto Normal [facility] Comment on above: Order Comment: Speci men Type: BLOOD SPECIMENOrdering Facility: [facility] Address: [address] [place] [address] Performed By: #### 5 7021-8 ####[facility] LABORATORYCLIA [id number] [address] [place] Eosinophils (Bld) [#/Vol] 0.34 10*3/uL Normal <0.46 [facility] Comment on above: Order Comment: Speci men Type: BLOOD SPECIMENOrdering Facility: [facility] Address: [address] [place] [address] Performed By: #### 5 7021-8 ####[facility] LABORATORYCLIA [id number] [address] Eosinophils/100 WBC (Bld) 4.0 % Normal [facility] Comment on above: Order Comment: Speci men Type: BLOOD SPECIMENOrdering Facility: [facility] Address: [address] [place] [address] Performed By: #### 5 7021-8 ####[facility] LABORATORYCLIA [id number] [address] Erythrocyte distribution width (RBC) [Ratio] 14.5 % Normal 11.5-15.0 [facility] Comment on above: Order Comment: Speci men Type: BLOOD SPECIMENOrdering Facility: [facility] Address: [address] [place] [address] Performed By: #### 5 7021-8 ####[facility] LABORATORYCLIA [id number] [address] Hematocrit (Bld) [Volume fraction] 41.2 % Normal 36.0-46.0 [facility] Comment on above: Order Comment: Speci men Type: BLOOD SPECIMENOrdering Facility: [facility] Address: [address] [address] Performed By: #### 5 7021-8 ####[facility] LABORATORYCLIA [id number] [address] [place] Hemoglobin (Bld) [Mass/Vol] 13.6 g/dL Normal 11.5-15.5 [facility] Comment on above: Order Comment: Speci men Type: BLOOD SPECIMENOrdering Facility: [facility] Address: [address] [place] [address] Performed By: #### 5 7021-8 ####[facility] LABORATORYCLIA [id number] [address] [place] IMMATURE GRAN % 0.5 % Normal [facility] Comment on above: Order Comment: Speci men Type: BLOOD SPECIMENOrdering Facility: [facility] Address: [address] [place] [address] Performed By: #### 5 7021-8 ####[facility] LABORATORYCLIA [id number] [address] [place] IMMATURE GRAN ABS 0.04 k/uL Normal <0.10 [facility] Comment on above: Order Comment: Speci men Type: BLOOD SPECIMENOrdering Facility: [facility] Address: [address] [place] [address] Performed By: #### 5 7021-8 ####[facility] LABORATORYCLIA [id number] [place] [address] [place] Lymphocytes (Bld) [#/Vol] 2.31 10*3/uL Normal 1.00-4.00 [facility] Comment on above: Order Comment: Speci men Type: BLOOD SPECIMENOrdering Facility: [facility] Address: [address] [place] [address] Performed By: #### 5 7021-8 ####[facility] LABORATORYCLIA [id number] [address] Lymphocytes/100 WBC (Bld) 27.0 % Normal [facility] Comment on above: Order Comment: Speci men Type: BLOOD SPECIMENOrdering Facility: [facility] Address: [address] [address] Performed By: #### 5 7021-8 ####[facility] LABORATORYCLIA [id number] [address] MCH (RBC) [Entitic mass] 30.7 pg Normal 26.0-34.0 [facility] Comment on above: Order Comment: Speci men Type: BLOOD SPECIMENOrdering Facility: [facility] Address: [address] [place] [address] Performed By: #### 5 7021-8 ####[facility] LABORATORYCLIA [id number] [address] MCHC (RBC) [Mass/Vol] 33.0 g/dL Normal 30.5-36.0 [facility] Comment on above: Order Comment: Speci men Type: BLOOD SPECIMENOrdering Facility: [facility] Address: [address] [place] [address] Performed By: #### 5 7021-8 ####[facility] LABORATORYCLIA [id number] [address] MCV (RBC) [Entitic vol] 93.0 fL Normal 80.0-100.0 [facility] Comment on above: Order Comment: Speci men Type: BLOOD SPECIMENOrdering Facility: [facility] Address: [address] [place] [address] Performed By: #### 5 7021-8 ####[facility] LABORATORYCLIA [id number] [address] Monocytes (Bld) [#/Vol] 0.75 10*3/uL Normal <0.87 [facility] Comment on above: Order Comment: Speci men Type: BLOOD SPECIMENOrdering Facility: [facility] Address: [address] [place] [address] Performed By: #### 5 7021-8 ####[facility] LABORATORYCLIA [id number] [address] Monocytes/100 WBC (Bld) 8.8 % Normal [facility] Comment on above: Order Comment: Speci men Type: BLOOD SPECIMENOrdering Facility: [facility] Address: [address] [address] Performed By: #### 5 7021-8 ####[facility] LABORATORYCLIA [id number] [address] [place] Neutrophils (Bld) [#/Vol] 5.04 10*3/uL Normal 1.45-7.50 [facility] Comment on above: Order Comment: Speci men Type: BLOOD SPECIMENOrdering Facility: [facility] Address: [address] [place] [address] Performed By: #### 5 7021-8 ####[facility] LABORATORYCLIA [id number] [address] Neutrophils/100 WBC (Bld) 58.9 % Normal [facility] Comment on above: Order Comment: Speci men Type: BLOOD SPECIMENOrdering Facility: [facility] Address: [address] [place] [address] Performed By: #### 5 7021-8 ####[facility] LABORATORYCLIA [id number] [place] [address] [place] Nucleated RBC (Bld) [#/Vol] 10*3/uL Normal <0.01 [facility] Comment on above: Order Comment: Speci men Type: BLOOD SPECIMENOrdering Facility: [facility] Address: [address] [place] [address] Performed By: #### 5 7021-8 ####[facility] LABORATORYCLIA [id number] [address] Nucleated RBC/100 WBC (Bld) [Ratio] 0.0 /100 WBC Normal [facility] Comment on above: Order Comment: Speci men Type: BLOOD SPECIMENOrdering Facility: [facility] Address: [address] [place] [address] Performed By: #### 5 7021-8 ####[facility] LABORATORYCLIA [id number] [address] [place] Platelet mean volume (Bld) [Entitic vol] 10.1 fL Normal 9.0-12.7 [place] [facility] Comment on above: Order Comment: Speci men Type: BLOOD SPECIMENOrdering Facility: [facility] Address: [address] [place] [address] Performed By: #### 5 7021-8 ####[facility] LABORATORYCLIA [id number] [address] [place] Platelets (Bld) [#/Vol] 283 10*3/uL Normal 150-400 [facility] Comment on above: Order Comment: Speci men Type: BLOOD SPECIMENOrdering Facility: [facility] Address: [address] [place] [address] Performed By: #### 5 7021-8 ####LEUNG LABORATORYCLIA [id number] [place] [address] [place] RBC (Bld) [#/Vol] 4.43 10*6/uL Normal 3.90-5.20 [facility] Comment on above: Order Comment: Speci men Type: BLOOD SPECIMENOrdering Facility: [facility] Address: [address] [place] [address] Performed By: #### 5 7021-8 ####LEUNG LABORATORYCLIA [id number] [address] [place] WBC (Bld) [#/Vol] 8.55 10*3/uL Normal 3.70-11.00 [facility] Comment on above: Order Comment: Speci men Type: BLOOD SPECIMENOrdering Facility: [facility] Address: [address] [place] [address] Performed By: #### 5 7021-8 ####LEUNG LABORATORYCLIA [id number] [address] [place] BRAIN WO IVCONon 06-05-[address] BRAIN WO IVCON * * *Final Report* * * DATE OF EXAM: Jun 05 2022 8:06PM [facility] 0504 - CT BRAIN WO IVCON / [...] base and imaged soft tissues are unremarkable. Senior Librarian (topogram) images: Unremarkable. IMPRESSION: NO EVIDENCE OF AN ACUTE INTRACRANIAL PROCESS Bomb Squad Officer: INES Transcribe Date/Time: Jun 05 2022 8:12P Dictated by : ALICE MARINA MD This examination was interpreted and the report reviewed and electronically signed by: ALICE MARINA MD on Jun 05 2022 8:13PM EST [id number] Normal [facility] Comprehensive metabolic 2000 panelon 06-05-2022 Albumin [Mass/Vol] 4.0 g/dL Normal 3.9-4.9 [facility] Comment on above: Order Comment: Bisi naranjo Type: BLOOD SPECIMENOrdering Facility: [facility] Address: [address] [place] [address] Performed By: #### 2 4323-8, 3 ####[place] LABORATORYCLIA [id number] [place] [address] [place] ALP [Catalytic activity/Vol] 92 U/L Normal 34-123 [facility] Comment on above: Order Comment: Bisi naranjo Type: BLOOD SPECIMENOrdering Facility: [facility] Address: [address] [place] [address] Performed By: #### 2 4323-8, 3016-3 ####LEUNG LABORATORYCLIA [id number] [place] [address] [place] ALT [Catalytic activity/Vol] 14 U/L Normal 7-38 [facility] Comment on above: Order Comment: Speci men Type: BLOOD SPECIMENOrdering Facility: [facility] Address: [address] [address] Performed By: #### 2 4323-8, 3016-3 ####LEUNG LABORATORYCLIA [id number] [place] [address] [place] Anion gap [Moles/Vol] 9 mmol/L Normal 9-18 [facility] Comment on above: Order Comment: Speci men Type: BLOOD SPECIMENOrdering Facility: [facility] Address: [address] [place] [address] Performed By: #### 2 4323-8, 6-3 ####LEUNG LABORATORYCLIA [id number] [address] [place] AST [Catalytic activity/Vol] 22 U/L Normal 13-35 [facility] Comment on above: Order Comment: Speci men Type: BLOOD SPECIMENOrdering Facility: [facility] Address: [address] [place] [address] Performed By: #### 2 4323-8, 3016-3 ####LEUNG LABORATORYCLIA [id number] [place] [address] [place] Bilirubin [Mass/Vol] 0.5 mg/dL Normal 0.2-1.3 [facility] Comment on above: Order Comment: Speci men Type: BLOOD SPECIMENOrdering Facility: [facility] Address: [address] [address] Performed By: #### 2 4323-8, 3016-3 ####LEUNG LABORATORYCLIA [id number] [place] [address] [place] Calcium [Mass/Vol] 9.5 mg/dL Normal 8.5-10.2 [facility] Comment on above: Order Comment: Speci men Type: BLOOD SPECIMENOrdering Facility: [facility] Address: [address] [address] Performed By: #### 2 4323-8, 3016-3 ####LEUNG LABORATORYCLIA [id number] [place] [address] [place] Chloride [Moles/Vol] 107 mmol/L High 97-105 [facility] Comment on above: Order Comment: Speci men Type: BLOOD SPECIMENOrdering Facility: [facility] Address: [address] [place] [address] Performed By: #### 2 4323-8, 3016-3 ####LE[facility]G LABORATORYCLIA [id number] [place] [address] [place] CO2 [Moles/Vol] 27 mmol/L Normal 22-30 [facility] Comment on above: Order Comment: Speci men Type: BLOOD SPECIMENOrdering Facility: [facility] Address: [address] [place] [address] Performed By: #### 2 4323-8, 6-3 ####[facility] [facility] LABORATORYCLIA [id number] [address] STATES OF [facility] Creatinine [Mass/Vol] 0.84 mg/dL Normal 0.58-0.96 [facility] Comment on above: Order Comment: Speci men Type: BLOOD SPECIMENOrdering Facility: [facility] Address: [address] [place] [address] Performed By: #### 2 4323-8, 6-3 ####[facility] [facility] LABORATORYCLIA [id number] [address] [place] ESTIMATED GLOMERULAR FILTRATION RATE 71 mL/min/1.73m??? Normal >=60 [facility] Comment on above: Order Comment: Speci men Type: BLOOD SPECIMENOrdering Facility: [facility] Address: [address] [place] [address] Result Comment: Farheen mated Glomerular Filtration Rate [...] By: #### 2 4323-8, 3016-3 ####LEUNG LABORATORYCLIA [id number] [place] [address] [place] Glucose [Mass/Vol] 91 mg/dL Normal 74-99 [facility] Comment on above: Order Comment: Bisi naranjo Type: BLOOD SPECIMENOrdering Facility: [facility] Address: [address] [address] Result Comment: The [place] [employer] (ADA) provides guidance for cutoff [...] Standards of Medical Care in Diabetes 2016, [place] [employer]. Diabetes Care. 2016.39(Suppl 1). Performed By: #### 2 4323-8, 3015-3 ####LEUNG LABORATORYCLIA [id number] [place] [address] [place] Potassium [Moles/Vol] 3.8 mmol/L Normal 3.7-5.1 [facility] Comment on above: Order Comment: Bisi naranjo Type: BLOOD SPECIMENOrdering Facility: [facility] Address: [address] [address] Performed By: #### 2 4323-8, 3015-3 ####LE[facility]G LABORATORYCLIA [id number] [place] [address] [place] Protein [Mass/Vol] 6.9 g/dL Normal 6.3-8.0 [facility] Comment on above: Order Comment: Bisi naranjo Type: BLOOD SPECIMENOrdering Facility: [facility] Address: [address] [address] Performed By: #### 2 4323-8, 3016-3 ####[place] [facility] LABORATORYCLIA [id number] [address] Sodium [Moles/Vol] 143 mmol/L Normal 136-144 [facility] Comment on above: Order Comment: Speci men Type: BLOOD SPECIMENOrdering Facility: [facility] Address: [address] [place] [address] Performed By: #### 2 4323-8, 3016-3 ####[place] [facility] LABORATORYCLIA [id number] [address] STATES [facility] Urea nitrogen [Mass/Vol] 28 mg/dL High 7-21 [facility] Comment on above: Order Comment: Speci men Type: BLOOD SPECIMENOrdering Facility: [facility] Address: [address] [place] [address] Performed By: #### 2 4323-8, 3016-3 ####[facility] [facility] LABORATORYCLIA [id number] [address] ECG COMPLETEon 06-05-2022 ECG COMPLETE Ventricular Rate : 9 5 BPM Atrial Rate : 95 BPM P-R Interval : 172 ms QRS Duration : 114 ms Q-T Interval : 388 ms QTC Calculation(Bazett) : 487 ms Calculated P Jeremiah : 42 degrees Calculated R Jeremiah : -32 degrees Calculated T Jeremiah : 32 degrees NORMAL SINUS RHYTHM WITH SINUS ARRHYTHMIA LEFT AXIS DEVIATION INCOMPLETE RIGHT BUNDLE BRANCH BLOCK MINIMAL VOLTAGE CRITERIA FOR LVH, MAY BE NORMAL VARIANT INFERIOR INFARCT , AGE UNDETERMINED T WAVE ABNORMALITY, CONSIDER ANTERIOR ISCHEMIA ABNORMAL ECG no STEMI 2036 Confirmed by MD MARLO, RICCARDO ([id number]), caser CARON DIAZ ([id number]) on 06/06/2022 6:59:18 AM NAME : CHAY TEAGUE PID : [id number] : 1945 Gender : Female Race : Unknown ORD : [id number] Procedure Date : Jun 05 2022 20:37:48 Edit Date : Jun 06 2022 06:59:23 Diagnosis: NORMAL SINUS RHYTHM WITH SINUS ARRHYTHMIA LEFT AXIS DEVIATION INCOMPLETE RIGHT BUNDLE BRANCH BLOCK MINIMAL VOLTAGE CRITERIA FOR LVH, MAY BE NORMAL VARIANT INFERIOR INFARCT , AGE UNDETERMINED T WAVE ABNORMALITY, CONSIDER ANTERIOR ISCHEMIA ABNORMAL ECG no STEMI 2037 Confirmed by MD TAYLOR BENJAMIN ([id number]), caser CARON DIAZ ([id number]) on 06/06/2022 6:59:18 AM Test Reason : Arrhythmia Location : 1 : ER ED Overread By : MD TAYLOR BENJAMIN Edited By : CARON DIAZ Referred By : , Acquired by : [place], [facility] ED NOTEon 06-05-2022 ED NOTE HNO ID: [id number] Author: Jame Leavitt RN Service: Nursing Author [...] self in triage. Denies SOB and CP. [facility] ED PROV NOTEon 06-05-2022 ED PROV NOTE HNO ID: [id number] Author: Riccardo Taylor DO Service: Emergency Medicine [...] cystitis without hematuria COVID-19 test performed per [facility] Sweet policy for suspected COVID community exposure. MDM [...] who will discuss the case with psychiatry economics department chair. 23:48 - Now intermittently agitated trying to get out of bed. QTc normal. Haldol 2 mg IV ordered. ED ATTENDING SIGN OUT NOTE Code Status: Full Code Presentation / Findings / Interventions / Plan / Items (more content not included)... Normal [facility] Ethanol [facility] 022 Ethanol [Mass/Vol] mg/dL Normal <11 [facility] Comment on above: Order Comment: Speci marcella Type: BLOOD SPECIMENOrdering Facility: [facility] Address: [address] [place] [address] Performed By: #### 5 643-2 ####[facility] [facility] LABORATORYCLIA [id number] [place] [address] [place] SARS-CoV-2 RNA Resp Ql TATI+p robeon 06-05-2022 SARS-CoV-2 (COVID-19) RNA TATI+probe Ql (Resp) SARS-CoV-2 (Agent of COVID-19) Not Detected by RT-PCR or equivalent method. Normal Not Detected [facility] Comment on above: Order Comment: Speci men Type: SWAB OF INTERNAL NOSEOrdering Facility: [facility] Address: [address] [place] [address] Result Comment: This test has been authorized by FDA under an Emergency Use Authorization (EUA). Performed By: #### 9 4500-6 ####LE[facility] LABORATORYCLIA [id number] [address] [place] TOX SCREEN ROUT URon 022 Amphetamines Confirm (U) [Mass/Vol] Negative Normal Negative [facility] Comment on above: Order Comment: Speci men Type: URINE SPECIMENOrdering Facility: [facility] Address: [address] [place] [address] Result Comment: Cuto ff threshold at 1000 ng/mL. Performed By: #### U TOX2 ####LE[facility]G LABORATORYCLIA [id number] [address] [place] BARBITURATES, URINE Negative Normal Negative [facility] Comment on above: Order Comment: Speci men Type: URINE SPECIMENOrdering Facility: [facility] Address: [address] [place] [address] Result Comment: Cuto ff threshold at 200 ng/mL. Performed By: #### U TOX2 ####LE[facility] LABORATORYCLIA [id number] [address] STATES [place] BENZODIAZEPINES, UR Negative Normal Negative [facility] Comment on above: Order Comment: Speci men Type: URINE SPECIMENOrdering Facility: [facility] Address: [address] [place] [address] Result Comment: Cuto ff threshold at 200 ng/mL. Performed By: #### U TOX2 ####LE[facility] LABORATORYCLIA [id number] [address] STATES [place] CANNABINOIDS,URINE Negative Normal Negative [facility] Comment on above: Order Comment: Speci men Type: URINE SPECIMENOrdering Facility: [facility] Address: [address] [place] [address] Result Comment: Cuto ff threshold at 50 ng/mL. Performed By: #### U TOX2 ####LEUNG LABORATORYCLIA [id number] [address] [place] Cocaine Ql (U) Negative Normal Negative [facility] Comment on above: Order Comment: Speci men Type: URINE SPECIMENOrdering Facility: [facility] Address: [address] [place] [address] Result Comment: Cuto ff threshold at 300 ng/mL. Performed By: #### U TOX2 ####LEUNG LABORATORYCLIA [id number] [address] [place] Ethanol (U) [Mass/Vol] <11 Normal <11 [facility] Comment on above: Order Comment: Speci men Type: URINE SPECIMENOrdering Facility: [facility] Address: [address] [place] [address] Performed By: #### U TOX2 ####LEUNG LABORATORYCLIA [id number] [address] Opiates Screen Ql (U) Negative Normal Negative [facility] Comment on above: Order Comment: Speci men Type: URINE SPECIMENOrdering Facility: [facility] Address: [address] [place] [address] Result Comment: Cuto ff threshold at 300 ng/mL. Performed By: #### U TOX2 ####LE[facility] LABORATORYCLIA [id number] [address] oxyCODONE cutoff Screen (U) [Mass/Vol] Negative Normal Negative [facility] Comment on above: Order Comment: Speci men Type: URINE SPECIMENOrdering Facility: [facility] Address: [address] [place] [address] Result Comment: Cuto ff threshold at 100 ng/mL. Performed By: #### U TOX2 ####[facility] LABORATORYCLIA [id number] [address] Phencyclidine Ql (U) Negative Normal Negative [facility] Comment on above: Order Comment: Speci men Type: URINE SPECIMENOrdering Facility: [facility] Address: [address] [place] [address] Result Comment: Cuto ff threshold at 25 ng/mL. Performed By: #### U TOX2 ####[facility] LABORATORYCLIA [id number] [address] [place] TSH SerPl-aCncon 06-05-2022 TSH Qn 4.220 m[IU]/L High 0.270-4.200 [facility] Comment on above: Order Comment: Speci men Type: BLOOD SPECIMENOrdering Facility: [facility] Address: [address] [place] [address] Performed By: #### 2 4323-8, 3016-3 ####[facility] LABORATORYCLIA [id number] [address] URINALYSIS, REFLEX MICROSCOP ICon 06-05-2022 Bacteria LM.HPF (Urine sed) [#/Area] Moderate Abnormal None Seen [facility] Comment on above: Order Comment: Speci men Type: URINE SPECIMENOrdering Facility: [facility] Address: [address] [place] [address] Performed By: #### L [id number] ####[facility] LABORATORYCLIA [id number] [address] Bilirubin Ql (U) Negative Normal Negative [facility] Comment on above: Order Comment: Speci men Type: URINE SPECIMENOrdering Facility: [facility] Address: [address] [place] [address] Performed By: #### L [id number] ####[facility] LABORATORYCLIA [id number] [address] Clarity (Unsp spec) Slightly Cloudy Abnormal Clear [facility] Comment on above: Order Comment: Speci men Type: URINE SPECIMENOrdering Facility: [facility] Address: [address] [place] [address] Performed By: #### L [id number] ####[facility] LABORATORYCLIA [id number] [address] Color (U) Yellow Normal Yellow [facility] Comment on above: Order Comment: Speci men Type: URINE SPECIMENOrdering Facility: [facility] Address: [address] [place] [address] Performed By: #### L [id number] ####[facility] LABORATORYCLIA [id number] [address] Epithelial cells LM.HPF (Urine sed) [#/Area] Few Normal [facility] Comment on above: Order Comment: Speci men Type: URINE SPECIMENOrdering Facility: [facility] Address: [address] [place] [address] Result Comment: Few Performed By: #### L [id number] ####[facility] LABORATORYCLIA [id number] [address] Glucose Test strip (U) [Mass/Vol] Negative Normal Negative [facility] Comment on above: Order Comment: Speci men Type: URINE SPECIMENOrdering Facility: [facility] Address: [address] [place] [address] Performed By: #### L [id number] ####[facility] LABORATORYCLIA [id number] [address] Hemoglobin Ql (U) Trace Abnormal Negative [facility] Comment on above: Order Comment: Speci men Type: URINE SPECIMENOrdering Facility: [facility] Address: [address] [place] [address] Performed By: #### L [id number] ####[facility] LABORATORYCLIA [id number] [address] [place] Ketones Ql (U) Negative Normal Negative [facility] Comment on above: Order Comment: Speci men Type: URINE SPECIMENOrdering Facility: [facility] Address: [address] [place] [address] Performed By: #### L [id number] ####[facility] LABORATORYCLIA [id number] [address] Leukocyte esterase Test strip Ql (U) 2+ Abnormal Negative [facility] Comment on above: Order Comment: Speci men Type: URINE SPECIMENOrdering Facility: [facility] Address: [address] [place] [address] Performed By: #### L [id number] ####[facility] LABORATORYCLIA [id number] [address] [place] Nitrite Ql (U) Negative Normal Negative [facility] Comment on above: Order Comment: Speci men Type: URINE SPECIMENOrdering Facility: [facility] Address: [address] [place] [address] Performed By: #### L [id number] ####[facility] LABORATORYCLIA [id number] [address] [place] pH (U) 6.0 [pH] Normal 5.0-8.0 [facility] Comment on above: Order Comment: Speci men Type: URINE SPECIMENOrdering Facility: [facility] Address: [address] [place] [address] Performed By: #### L [id number] ####[facility] LABORATORYCLIA [id number] [address] [place] Protein (U) [Mass/Vol] Negative Normal Negative [facility] Comment on above: Order Comment: Speci men Type: URINE SPECIMENOrdering Facility: [facility] Address: [address] [place] [address] Performed By: #### L [id number] ####[facility] HOSPITALIA [id number] [place] [address] [place] RBC LM.HPF (Urine sed) [#/Area] 0-3 /HPF Normal 0-3 /HPF [facility] Comment on above: Order Comment: Speci men Type: URINE SPECIMENOrdering Facility: [facility] Address: [address] [place] [address] Performed By: #### L [id number] ####[facility] LABORATORYCLIA [id number] [address] [place] Specific gravity (U) [Rel density] 1.025 Normal 1.005-1.030 [facility] Comment on above: Order Comment: Speci men Type: URINE SPECIMENOrdering Facility: [facility] Address: [address] [place] [address] Performed By: #### L [id number] ####[facility] LABORATORYCLIA [id number] [address] Urobilinogen Ql (U) 0.2 EU/dL Normal 0.2-1.0 EU/dL [facility] Comment on above: Order Comment: Speci men Type: URINE SPECIMENOrdering Facility: [facility] Address: [address] [place], [place] [address] Performed By: #### L [id number] ####[facility] LABORATORYCLIA [id number] [place] [id number] [facility] WBC LM.HPF (Urine sed) [#/Area] 11-25 /HPF Abnormal 0-5 /HPF [facility] Comment on above: Order Comment: Speci men Type: URINE SPECIMENOrdering Facility: [facility] Address: [facility] [place] [address] Performed By: #### L [id number] ####[facility] LABORATORYCLIA [id number] [place] [address] [place] XR CHEST 1V FRONTAL PORTon [...] limits Other: . 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 Performed By: #### A PTT, TSH5, HEMDF, LDH3, DDI2, BMP3M, ESR, FOLT3, URIC3, FEIBC, FERR3, B12, FT4M #### [facility] [employer] [address] [place] [address] #### HVAAO, ANA3, HEPAN, B2GPG, B2GPM, B2GPA #### [address] #### LUPUS #### The performing lab is in the report. Lupus Anticoagulant Reflexiv e Panelon 11-12-2021 aPTT Coag (Bld) [Time] 118 s High 32-48 [facility] Comment on above: Performed By: #### A PTT, TSH5, HEMDF, LDH3, DDI2, BMP3M, ESR, FOLT3, URIC3, FEIBC, FERR3, B12, FT4M #### [place] [address] [place] #### HVAAO, ANA3, HEPAN, B2GPG, B2GPM, B2GPA #### [address] #### LUPUS #### The performing lab is in the report. aPTT Coag (Bld) [Time] 42 s Normal 32-48 [facility] Comment on above: Performed By: #### A PTT, TSH5, HEMDF, LDH3, DDI2, BMP3M, ESR, FOLT3, URIC3, FEIBC, FERR3, B12, FT4M #### [facility] [address] [place] #### HVAAO, ANA3, HEPAN, B2GPG, B2GPM, B2GPA #### [address] #### LUPUS #### The performing lab is in the report. dRVVT 1:1 Mix Not Applicable Normal 33-44 [facility] Comment on above: Performed By: #### A PTT, TSH5, HEMDF, LDH3, DDI2, BMP3M, ESR, FOLT3, URIC3, FEIBC, FERR3, B12, FT4M #### [place] [address] [place] #### HVAAO, ANA3, HEPAN, B2GPG, B2GPM, B2GPA #### [address] #### LUPUS #### The performing lab is in the report. dRVVT Confirmation Not Applicable Normal Negative [facility] Comment on above: Performed By: #### A PTT, TSH5, HEMDF, LDH3, DDI2, BMP3M, ESR, FOLT3, URIC3, FEIBC, FERR3, B12, FT4M #### [facility] [address] [place] [address] #### HVAAO, ANA3, HEPAN, B2GPG, B2GPM, B2GPA #### [address] #### LUPUS #### The performing lab is in the report. dRVVT Screen 29 sec Low 33-44 [facility] Comment on above: Performed By: #### A PTT, TSH5, HEMDF, LDH3, DDI2, BMP3M, ESR, FOLT3, URIC3, FEIBC, FERR3, B12, FT4M #### [place] [address] [place] [address] #### HVAAO, ANA3, HEPAN, B2GPG, B2GPM, B2GPA #### [address] #### LUPUS #### The performing lab is in the report. Hexagonal Phospholipid Neutral Reflex Not Applicable Normal Negative [facility] Comment on above: Performed By: #### A PTT, TSH5, HEMDF, LDH3, DDI2, BMP3M, ESR, FOLT3, URIC3, FEIBC, FERR3, B12, FT4M #### [facility] [address] [place] [address] #### HVAAO, ANA3, HEPAN, B2GPG, B2GPM, B2GPA #### [address] #### LUPUS #### The performing lab is in the report. Lupus Anticoagulant Interpretation See Note Normal [facility] Comment on above: Result Comment: Lupu s [...] developed and its performance characteristics determined by [facility]. It has not been cleared or approved by the [place] Food and Drug Administration. This test was performed in a CLIA certified laboratory and is intended for clinical purposes. Counseling and informed consent are recommended for genetic testing. Consent forms are available online. Performed by [facility], [address] [place], [place] [id number] www.[email or web address], Sara Ji MD - Lab. Director Performed By: #### A PTT, TSH5, HEMDF, LDH3, DDI2, BMP3M, ESR, FOLT3, URIC3, FEIBC, FERR3, B12, FT4M #### [employer] [address] [place] [address] #### HVAAO, ANA3, HEPAN, B2GPG, B2GPM, B2GPA #### [facility] [employer] [address] [place] [phone] #### LUPUS #### The performing lab is in the report. Platelet Neutralization (PTT-D, Confirm) Not Applicable Normal Negative [facility] [employer] [facility] Comment on above: Performed By: #### A PTT, TSH5, HEMDF, LDH3, DDI2, BMP3M, ESR, FOLT3, URIC3, FEIBC, FERR3, B12, FT4M #### [facility] [address] [place] [address] #### HVAAO, ANA3, HEPAN, B2GPG, B2GPM, B2GPA #### [employer] [address] [place] [phone] #### LUPUS #### The performing lab is in the report. PT Coag (PPP) [Time] 13.4 s Normal 12.0-15.5 [facility] Comment on above: Performed By: #### A PTT, TSH5, HEMDF, LDH3, DDI2, BMP3M, ESR, FOLT3, URIC3, FEIBC, FERR3, B12, FT4M #### [facility] [address] [place] [address] #### HVAAO, ANA3, HEPAN, B2GPG, B2GPM, B2GPA #### [address] #### LUPUS #### The performing lab is in the report. PTT-D 1:1 Mix Not Applicable Normal 32-48 [facility] Comment on above: Performed By: #### A PTT, TSH5, HEMDF, LDH3, DDI2, BMP3M, ESR, FOLT3, URIC3, FEIBC, FERR3, B12, FT4M #### [facility] [address] [place] [address] #### HVAAO, ANA3, HEPAN, B2GPG, B2GPM, B2GPA #### [address] #### LUPUS #### The performing lab is in the report. Reptilase Time 16.5 sec Normal <=21.9 [facility] Comment on above: Performed By: #### A PTT, TSH5, HEMDF, LDH3, DDI2, BMP3M, ESR, FOLT3, URIC3, FEIBC, FERR3, B12, FT4M #### [facility] [address] [place] [address] #### HVAAO, ANA3, HEPAN, B2GPG, B2GPM, B2GPA #### [address] #### LUPUS #### The performing lab is in the report. Thrombin Time > 150.0 High 14.7-19.5 [facility] Comment on above: Performed By: #### A PTT, TSH5, HEMDF, LDH3, DDI2, BMP3M, ESR, FOLT3, URIC3, FEIBC, FERR3, B12, FT4M #### [facility] [address] [place] [address] #### HVAAO, ANA3, HEPAN, B2GPG, B2GPM, B2GPA #### [address] #### LUPUS #### The performing lab is in the report. Basic Metabolic Panelon 10-23 Anion gap [Moles/Vol] 4 mmol/L Normal 3-13 [facility] Comment on above: Performed By: #### A PTT, TSH5, HEMDF, LDH3, DDI2, BMP3M, ESR, FOLT3, URIC3, FEIBC, FERR3, B12, FT4M #### [address] [place], [place] #### HVAAO, ANA3, HEPAN, B2GPG, B2GPM, B2GPA #### [address] #### LUPUS #### The performing lab is in the report. Calcium [Mass/Vol] 9.0 mg/dL Normal 8.4-10.4 [facility] Comment on above: Performed By: #### A PTT, TSH5, HEMDF, LDH3, DDI2, BMP3M, ESR, FOLT3, URIC3, FEIBC, FERR3, B12, FT4M #### [address] [place] [address] #### HVAAO, ANA3, HEPAN, B2GPG, B2GPM, B2GPA #### [address] #### LUPUS #### The performing lab is in the report. CO2 [Moles/Vol] 30 mmol/L Normal 22-30 [facility] Comment on above: Performed By: #### A PTT, TSH5, HEMDF, LDH3, DDI2, BMP3M, ESR, FOLT3, URIC3, FEIBC, FERR3, B12, FT4M #### [place] [address] [place] [address] #### HVAAO, ANA3, HEPAN, B2GPG, B2GPM, B2GPA #### [address] #### LUPUS #### The performing lab is in the report. Creatinine [Mass/Vol] 0.95 mg/dL Normal 0.52-1.25 [facility] Comment on above: Performed By: #### A PTT, TSH5, HEMDF, LDH3, DDI2, BMP3M, ESR, FOLT3, URIC3, FEIBC, FERR3, B12, FT4M #### [place] [address] [place] [address] #### HVAAO, ANA3, HEPAN, B2GPG, B2GPM, B2GPA #### [address] #### LUPUS #### The performing lab is in the report. GFR/1.73 sq M.predicted among blacks MDRD (S/P/Bld) [Vol rate/Area] 66.2 mL/min/{1.73_m2} Normal >60 [facility] Comment on above: Performed By: #### A PTT, TSH5, HEMDF, LDH3, DDI2, BMP3M, ESR, FOLT3, URIC3, FEIBC, FERR3, B12, FT4M #### [address] [place] [address] #### HVAAO, ANA3, HEPAN, B2GPG, B2GPM, B2GPA #### [address] #### LUPUS #### The performing lab is in the report. GFR/1.73 sq M.predicted among non-blacks MDRD (S/P/Bld) [Vol rate/Area] 57.1 mL/min/{1.73_m2} Abnormal >60 [facility] Comment on above: Result Comment: KDIG O [...] FEIBC, FERR3, B12, FT4M #### [facility] [address] [place] [address] #### HVAAO, ANA3, HEPAN, B2GPG, B2GPM, B2GPA #### [address] #### LUPUS #### The performing lab is in the report. Glucose [Mass/Vol] 101 mg/dL High 70-100 [facility] Comment on above: Performed By: #### A PTT, TSH5, HEMDF, LDH3, DDI2, BMP3M, ESR, FOLT3, URIC3, FEIBC, FERR3, B12, FT4M #### [facility] [address] [place] [address] #### HVAAO, ANA3, HEPAN, B2GPG, B2GPM, B2GPA #### [address] [phone] #### LUPUS #### The performing lab is in the report. Urea nitrogen [Mass/Vol] 16 mg/dL Normal 9-20 [facility] Comment on above: Performed By: #### A PTT, TSH5, HEMDF, LDH3, DDI2, BMP3M, ESR, FOLT3, URIC3, FEIBC, FERR3, B12, FT4M #### [place] [address] [place] #### HVAAO, ANA3, HEPAN, B2GPG, B2GPM, B2GPA #### [address] #### LUPUS #### The performing lab is in the report. Chloride [Moles/Vol] 109 mmol/L High 98-107 [facility] Comment on above: Performed By: #### A PTT, TSH5, HEMDF, LDH3, DDI2, BMP3M, ESR, FOLT3, URIC3, FEIBC, FERR3, B12, FT4M #### [place] [address] [place] #### HVAAO, ANA3, HEPAN, B2GPG, B2GPM, B2GPA #### [address] #### LUPUS #### The performing lab is in the report. Potassium [Moles/Vol] 4.2 mmol/L Normal 3.5-5.1 [facility] Comment on above: Performed By: #### A PTT, TSH5, HEMDF, LDH3, DDI2, BMP3M, ESR, FOLT3, URIC3, FEIBC, FERR3, B12, FT4M #### [place] [address] [place] #### HVAAO, ANA3, HEPAN, B2GPG, B2GPM, B2GPA #### [address] #### LUPUS #### The performing lab is in the report. Sodium [Moles/Vol] 142 mmol/L Normal 135-145 [facility] Comment on above: Performed By: #### A PTT, TSH5, HEMDF, LDH3, DDI2, BMP3M, ESR, FOLT3, URIC3, FEIBC, FERR3, B12, FT4M #### [place] [address] [place] #### HVAAO, ANA3, HEPAN, B2GPG, B2GPM, B2GPA #### [address] #### LUPUS #### The performing lab is in the report. Hemogram w/ Autodiffon 11-10 Abs Baso Cnt 0.1 10*3/uL Normal 0.0-0.2 [facility] Comment on above: Performed By: #### A PTT, TSH5, HEMDF, LDH3, DDI2, BMP3M, ESR, FOLT3, URIC3, FEIBC, FERR3, B12, FT4M #### [address] [place] [address] #### HVAAO, ANA3, HEPAN, B2GPG, B2GPM, B2GPA #### [address] #### LUPUS #### The performing lab is in the report. Abs Neutrophile Cnt 5.2 10*3/uL Normal 1.8-7.0 [facility] Comment on above: Performed By: #### A PTT, TSH5, HEMDF, LDH3, DDI2, BMP3M, ESR, FOLT3, URIC3, FEIBC, FERR3, B12, FT4M #### [facility] [employer] [address] [place] [address] #### HVAAO, ANA3, HEPAN, B2GPG, B2GPM, B2GPA #### [address] #### LUPUS #### The performing lab is in the report. Basophils/100 WBC (Bld) 0.7 % Normal 0.0-2.0 [facility] Comment on above: Performed By: #### A PTT, TSH5, HEMDF, LDH3, DDI2, BMP3M, ESR, FOLT3, URIC3, FEIBC, FERR3, B12, FT4M #### [address] [place] [address] #### HVAAO, ANA3, HEPAN, B2GPG, B2GPM, B2GPA #### [address] #### LUPUS #### The performing lab is in the report. Eosinophils (Bld) [#/Vol] 0.5 10*3/uL Normal 0.0-0.5 [facility] Comment on above: Performed By: #### A PTT, TSH5, HEMDF, LDH3, DDI2, BMP3M, ESR, FOLT3, URIC3, FEIBC, FERR3, B12, FT4M #### [address] [place] [address] #### HVAAO, ANA3, HEPAN, B2GPG, B2GPM, B2GPA #### [address] #### LUPUS #### The performing lab is in the report. Eosinophils/100 WBC (Bld) 5.8 % Normal 1.0-6.0 [facility] Comment on above: Performed By: #### A PTT, TSH5, HEMDF, LDH3, DDI2, BMP3M, ESR, FOLT3, URIC3, FEIBC, FERR3, B12, FT4M #### [address] [place] #### HVAAO, ANA3, HEPAN, B2GPG, B2GPM, B2GPA #### [address] #### LUPUS #### The performing lab is in the report. Erythrocyte distribution width (RBC) [Ratio] 15.2 % High 11.5-14.5 [facility] Comment on above: Performed By: #### A PTT, TSH5, HEMDF, LDH3, DDI2, BMP3M, ESR, FOLT3, URIC3, FEIBC, FERR3, B12, FT4M #### [address] [place] #### HVAAO, ANA3, HEPAN, B2GPG, B2GPM, B2GPA #### [address] #### LUPUS #### The performing lab is in the report. Granulocytes/100 WBC (Bld) 64.6 % Normal 40.0-80.0 [facility] Comment on above: Performed By: #### A PTT, TSH5, HEMDF, LDH3, DDI2, BMP3M, ESR, FOLT3, URIC3, FEIBC, FERR3, B12, FT4M #### [facility] [address] [place] [address] #### HVAAO, ANA3, HEPAN, B2GPG, B2GPM, B2GPA #### [address] #### LUPUS #### The performing lab is in the report. Hematocrit (Bld) [Volume fraction] 37.8 % Normal 35.0-47.0 [facility] Comment on above: Performed By: #### A PTT, TSH5, HEMDF, LDH3, DDI2, BMP3M, ESR, FOLT3, URIC3, FEIBC, FERR3, B12, FT4M #### [facility] [address] [place] [address] #### HVAAO, ANA3, HEPAN, B2GPG, B2GPM, B2GPA #### [address] #### LUPUS #### The performing lab is in the report. Hemoglobin (Bld) [Mass/Vol] 12.4 g/dL Normal 11.7-16.0 [facility] Comment on above: Performed By: #### A PTT, TSH5, HEMDF, LDH3, DDI2, BMP3M, ESR, FOLT3, URIC3, FEIBC, FERR3, B12, FT4M #### [facility] [address] [place] #### HVAAO, ANA3, HEPAN, B2GPG, B2GPM, B2GPA #### [address] #### LUPUS #### The performing lab is in the report. Lymphocytes (Bld) [#/Vol] 1.7 10*3/uL Normal 1.0-4.3 [facility] Comment on above: Performed By: #### A PTT, TSH5, HEMDF, LDH3, DDI2, BMP3M, ESR, FOLT3, URIC3, FEIBC, FERR3, B12, FT4M #### [place] [address] [place] [address] #### HVAAO, ANA3, HEPAN, B2GPG, B2GPM, B2GPA #### [address] #### LUPUS #### The performing lab is in the report. Lymphocytes/100 WBC (Bld) 21.0 % Normal 20.0-40.0 [facility] Comment on above: Performed By: #### A PTT, TSH5, HEMDF, LDH3, DDI2, BMP3M, ESR, FOLT3, URIC3, FEIBC, FERR3, B12, FT4M #### [place] [address] [place] [address] #### HVAAO, ANA3, HEPAN, B2GPG, B2GPM, B2GPA #### [address] #### LUPUS #### The performing lab is in the report. MCH (RBC) [Entitic mass] 30.5 pg Normal 26.0-34.0 [facility] Comment on above: Performed By: #### A PTT, TSH5, HEMDF, LDH3, DDI2, BMP3M, ESR, FOLT3, URIC3, FEIBC, FERR3, B12, FT4M #### [address] [place] [address] #### HVAAO, ANA3, HEPAN, B2GPG, B2GPM, B2GPA #### [address] #### LUPUS #### The performing lab is in the report. MCHC 32.8 % Normal 32.0-36.0 [facility] Comment on above: Performed By: #### A PTT, TSH5, HEMDF, LDH3, DDI2, BMP3M, ESR, FOLT3, URIC3, FEIBC, FERR3, B12, FT4M #### [address] [place] #### HVAAO, ANA3, HEPAN, B2GPG, B2GPM, B2GPA #### [address] #### LUPUS #### The performing lab is in the report. MCV (RBC) [Entitic vol] 92.9 fL Normal 79.0-98.0 [facility] Comment on above: Performed By: #### A PTT, TSH5, HEMDF, LDH3, DDI2, BMP3M, ESR, FOLT3, URIC3, FEIBC, FERR3, B12, FT4M #### [address] [place] #### HVAAO, ANA3, HEPAN, B2GPG, B2GPM, B2GPA #### [address] #### LUPUS #### The performing lab is in the report. Monocytes (Bld) [#/Vol] 0.6 10*3/uL Normal 0.0-0.8 [facility] Comment on above: Performed By: #### A PTT, TSH5, HEMDF, LDH3, DDI2, BMP3M, ESR, FOLT3, URIC3, FEIBC, FERR3, B12, FT4M #### [address] [place] #### HVAAO, ANA3, HEPAN, B2GPG, B2GPM, B2GPA #### [address] #### LUPUS #### The performing lab is in the report. Monocytes/100 WBC (Bld) 7.9 % Normal 2.0-10.0 [facility] Comment on above: Performed By: #### A PTT, TSH5, HEMDF, LDH3, DDI2, BMP3M, ESR, FOLT3, URIC3, FEIBC, FERR3, B12, FT4M #### [facility] [address] [place] [address] #### HVAAO, ANA3, HEPAN, B2GPG, B2GPM, B2GPA #### [address] #### LUPUS #### The performing lab is in the report. Platelet mean volume (Bld) [Entitic vol] 8.8 fL Normal 7.4-10.4 [facility] Comment on above: Performed By: #### A PTT, TSH5, HEMDF, LDH3, DDI2, BMP3M, ESR, FOLT3, URIC3, FEIBC, FERR3, B12, FT4M #### [facility] [address] [place] [address] #### HVAAO, ANA3, HEPAN, B2GPG, B2GPM, B2GPA #### [address] #### LUPUS #### The performing lab is in the report. Platelets (Bld) [#/Vol] 280 10*3/uL Normal 140-440 [facility] Comment on above: Performed By: #### A PTT, TSH5, HEMDF, LDH3, DDI2, BMP3M, ESR, FOLT3, URIC3, FEIBC, FERR3, B12, FT4M #### [facility] [address] [place] [address] #### HVAAO, ANA3, HEPAN, B2GPG, B2GPM, B2GPA #### [address] #### LUPUS #### The performing lab is in the report. RBC (Bld) [#/Vol] 4.07 10*6/uL Normal 3.80-5.20 [facility] Comment on above: Performed By: #### A PTT, TSH5, HEMDF, LDH3, DDI2, BMP3M, ESR, FOLT3, URIC3, FEIBC, FERR3, B12, FT4M #### [facility] [address] [place] [address] #### HVAAO, ANA3, HEPAN, B2GPG, B2GPM, B2GPA #### [address] #### LUPUS #### The performing lab is in the report. WBC (Bld) [#/Vol] 8.0 10*3/uL Normal 3.6-10.7 [facility] Comment on above: Performed By: #### A PTT, TSH5, HEMDF, LDH3, DDI2, BMP3M, ESR, FOLT3, URIC3, FEIBC, FERR3, B12, FT4M #### [facility] [address] [place] [address] #### HVAAO, ANA3, HEPAN, B2GPG, B2GPM, B2GPA #### [place] [address] [place], [place] #### LUPUS #### The performing lab is in the report. SARS-CoV-2 Antigenon 022 SARS-CoV-2 Antigen Negative Normal Negative [facility] Comment on above: Result Comment: A negative result does not rule out the possibility of SARS-CoV-2 infection. NAAT-based methods should be considered for symptomatic patients presenting greater than seven days after onset of symptoms. Method: Lateral flow immunoassay. Fact sheets for healthcare providers and patients can be found at the following sites: https://www.fda.gov/media/545604/download https://www.fda.gov/media/914128/download Performed By: #### A PTT, TSH5, HEMDF, LDH3, DDI2, BMP3M, ESR, FOLT3, URIC3, FEIBC, FERR3, B12, FT4M #### [facility] [address] [place] [address] #### HVAAO, ANA3, HEPAN, B2GPG, B2GPM, B2GPA #### [address] #### LUPUS #### The performing lab is in the report. Basic Metabolic Panelon 10-23 Anion gap [Moles/Vol] 5 mmol/L Normal 3-13 [facility] Comment on above: Performed By: #### A PTT, TSH5, HEMDF, LDH3, DDI2, BMP3M, ESR, FOLT3, URIC3, FEIBC, FERR3, B12, FT4M #### [facility] [address] [place] [address] #### HVAAO, ANA3, HEPAN, B2GPG, B2GPM, B2GPA #### [address] #### LUPUS #### The performing lab is in the report. Calcium [Mass/Vol] 9.2 mg/dL Normal 8.4-10.4 [facility] Comment on above: Performed By: #### A PTT, TSH5, HEMDF, LDH3, DDI2, BMP3M, ESR, FOLT3, URIC3, FEIBC, FERR3, B12, FT4M #### [facility] [address] [place] [address] #### HVAAO, ANA3, HEPAN, B2GPG, B2GPM, B2GPA #### [address] #### LUPUS #### The performing lab is in the report. CO2 [Moles/Vol] 28 mmol/L Normal 22-30 [facility] Comment on above: Performed By: #### A PTT, TSH5, HEMDF, LDH3, DDI2, BMP3M, ESR, FOLT3, URIC3, FEIBC, FERR3, B12, FT4M #### [place] [address] [place] [address] #### HVAAO, ANA3, HEPAN, B2GPG, B2GPM, B2GPA #### [address] #### LUPUS #### The performing lab is in the report. Glucose [Mass/Vol] 106 mg/dL High 70-100 [facility] Comment on above: Performed By: #### A PTT, TSH5, HEMDF, LDH3, DDI2, BMP3M, ESR, FOLT3, URIC3, FEIBC, FERR3, B12, FT4M #### [address] [place] [address] #### HVAAO, ANA3, HEPAN, B2GPG, B2GPM, B2GPA #### [address] #### LUPUS #### The performing lab is in the report. Urea nitrogen [Mass/Vol] 14 mg/dL Normal 9-20 [facility] Comment on above: Performed By: #### A PTT, TSH5, HEMDF, LDH3, DDI2, BMP3M, ESR, FOLT3, URIC3, FEIBC, FERR3, B12, FT4M #### [address] [facility] [place] [place] #### HVAAO, ANA3, HEPAN, B2GPG, B2GPM, B2GPA #### [address] #### LUPUS #### The performing lab is in the report. Creatinine [Mass/Vol] 0.88 mg/dL Normal 0.52-1.25 [facility] Comment on above: Performed By: #### A PTT, TSH5, HEMDF, LDH3, DDI2, BMP3M, ESR, FOLT3, URIC3, FEIBC, FERR3, B12, FT4M #### [address] [address] #### HVAAO, ANA3, HEPAN, B2GPG, B2GPM, B2GPA #### [address] #### LUPUS #### The performing lab is in the report. GFR/1.73 sq M.predicted among blacks MDRD (S/P/Bld) [Vol rate/Area] 72.6 mL/min/{1.73_m2} Normal >60 [facility] Comment on above: Performed By: #### A PTT, TSH5, HEMDF, LDH3, DDI2, BMP3M, ESR, FOLT3, URIC3, FEIBC, FERR3, B12, FT4M #### [facility] [address] [place] [address] #### HVAAO, ANA3, HEPAN, B2GPG, B2GPM, B2GPA #### [facility] [address] [place] [address] #### LUPUS #### The performing lab is in the report. GFR/1.73 sq M.predicted among non-blacks MDRD (S/P/Bld) [Vol rate/Area] 62.7 mL/min/{1.73_m2} Normal >60 [facility] Comment on above: Result Comment: KDIG O [...] FEIBC, FERR3, B12, FT4M #### [facility] [address] [place] [address] #### HVAAO, ANA3, HEPAN, B2GPG, B2GPM, B2GPA #### [address] [address] #### LUPUS #### The performing lab is in the report. Chloride [Moles/Vol] 108 mmol/L High 98-107 [facility] Comment on above: Performed By: #### A PTT, TSH5, HEMDF, LDH3, DDI2, BMP3M, ESR, FOLT3, URIC3, FEIBC, FERR3, B12, FT4M #### [address] [place] [address] #### HVAAO, ANA3, HEPAN, B2GPG, B2GPM, B2GPA #### [address] #### LUPUS #### The performing lab is in the report. Potassium [Moles/Vol] 4.1 mmol/L Normal 3.5-5.1 [facility] Comment on above: Performed By: #### A PTT, TSH5, HEMDF, LDH3, DDI2, BMP3M, ESR, FOLT3, URIC3, FEIBC, FERR3, B12, FT4M #### [address] [place] #### HVAAO, ANA3, HEPAN, B2GPG, B2GPM, B2GPA #### [address] #### LUPUS #### The performing lab is in the report. Sodium [Moles/Vol] 141 mmol/L Normal 135-145 [facility] Comment on above: Performed By: #### A PTT, TSH5, HEMDF, LDH3, DDI2, BMP3M, ESR, FOLT3, URIC3, FEIBC, FERR3, B12, FT4M #### [address] [place] [address] #### HVAAO, ANA3, HEPAN, B2GPG, B2GPM, B2GPA #### [address] #### LUPUS #### The performing lab is in the report. CR Chest Portableon 11-09-19 22 CR Chest Portable Patient Name: CHAY TEAGUE Diagnostic Radiology ACCESSION EXAM DATE/TIME PROCEDURE ORDERING PROVIDER [id number] 11/09/2021 13:45 EST CR Chest Portable MD FLOR, RENEA CPT code 38421 Reason For Exam (CR Chest Portable) Shortness [...] and Time: 11/09/2021 2:26 Normal [facility] Hemogram w/ Autodiffon 11-09 Abs Baso Cnt 0.1 10*3/uL Normal 0.0-0.2 [facility] Comment on above: Performed By: #### A PTT, TSH5, HEMDF, LDH3, DDI2, BMP3M, ESR, FOLT3, URIC3, FEIBC, FERR3, B12, FT4M #### [facility] [address] [place] [address] #### HVAAO, ANA3, HEPAN, B2GPG, B2GPM, B2GPA #### [address] [id number] #### LUPUS #### The performing lab is in the report. Abs Neutrophile Cnt 7.7 10*3/uL High 1.8-7.0 [facility] Comment on above: Performed By: #### A PTT, TSH5, HEMDF, LDH3, DDI2, BMP3M, ESR, FOLT3, URIC3, FEIBC, FERR3, B12, FT4M #### [facility] [address] [place] [address] #### HVAAO, ANA3, HEPAN, B2GPG, B2GPM, B2GPA #### [address] [place] #### LUPUS #### The performing lab is in the report. Basophils/100 WBC (Bld) 0.9 % Normal 0.0-2.0 [facility] Comment on above: Performed By: #### A PTT, TSH5, HEMDF, LDH3, DDI2, BMP3M, ESR, FOLT3, URIC3, FEIBC, FERR3, B12, FT4M #### [place] [address] [place] [address] #### HVAAO, ANA3, HEPAN, B2GPG, B2GPM, B2GPA #### [address] #### LUPUS #### The performing lab is in the report. Eosinophils (Bld) [#/Vol] 0.5 10*3/uL Normal 0.0-0.5 [facility] Comment on above: Performed By: #### A PTT, TSH5, HEMDF, LDH3, DDI2, BMP3M, ESR, FOLT3, URIC3, FEIBC, FERR3, B12, FT4M #### [place] [address] [place], [place] #### HVAAO, ANA3, HEPAN, B2GPG, B2GPM, B2GPA #### [address] #### LUPUS #### The performing lab is in the report. Eosinophils/100 WBC (Bld) 4.4 % Normal 1.0-6.0 [facility] Comment on above: Performed By: #### A PTT, TSH5, HEMDF, LDH3, DDI2, BMP3M, ESR, FOLT3, URIC3, FEIBC, FERR3, B12, FT4M #### [address] [place], [place] #### HVAAO, ANA3, HEPAN, B2GPG, B2GPM, B2GPA #### [address] #### LUPUS #### The performing lab is in the report. Erythrocyte distribution width (RBC) [Ratio] 15.4 % High 11.5-14.5 [facility] Comment on above: Performed By: #### A PTT, TSH5, HEMDF, LDH3, DDI2, BMP3M, ESR, FOLT3, URIC3, FEIBC, FERR3, B12, FT4M #### [facility] [address] [place] [address] #### HVAAO, ANA3, HEPAN, B2GPG, B2GPM, B2GPA #### [address] #### LUPUS #### The performing lab is in the report. Granulocytes/100 WBC (Bld) 67.5 % Normal 40.0-80.0 [facility] Comment on above: Performed By: #### A PTT, TSH5, HEMDF, LDH3, DDI2, BMP3M, ESR, FOLT3, URIC3, FEIBC, FERR3, B12, FT4M #### [place] [address] [place] [address] #### HVAAO, ANA3, HEPAN, B2GPG, B2GPM, B2GPA #### [address] #### LUPUS #### The performing lab is in the report. Hematocrit (Bld) [Volume fraction] 39.5 % Normal 35.0-47.0 [facility] Comment on above: Performed By: #### A PTT, TSH5, HEMDF, LDH3, DDI2, BMP3M, ESR, FOLT3, URIC3, FEIBC, FERR3, B12, FT4M #### [place] [address] [place] [address] #### HVAAO, ANA3, HEPAN, B2GPG, B2GPM, B2GPA #### [address] #### LUPUS #### The performing lab is in the report. Hemoglobin (Bld) [Mass/Vol] 12.9 g/dL Normal 11.7-16.0 [facility] Comment on above: Performed By: #### A PTT, TSH5, HEMDF, LDH3, DDI2, BMP3M, ESR, FOLT3, URIC3, FEIBC, FERR3, B12, FT4M #### [facility] [address] [place] [address] #### HVAAO, ANA3, HEPAN, B2GPG, B2GPM, B2GPA #### [address] #### LUPUS #### The performing lab is in the report. Lymphocytes (Bld) [#/Vol] 2.2 10*3/uL Normal 1.0-4.3 [facility] Comment on above: Performed By: #### A PTT, TSH5, HEMDF, LDH3, DDI2, BMP3M, ESR, FOLT3, URIC3, FEIBC, FERR3, B12, FT4M #### [place] [address] [place] [address] #### HVAAO, ANA3, HEPAN, B2GPG, B2GPM, B2GPA #### [address] #### LUPUS #### The performing lab is in the report. Lymphocytes/100 WBC (Bld) 19.1 % Low 20.0-40.0 [facility] Comment on above: Performed By: #### A PTT, TSH5, HEMDF, LDH3, DDI2, BMP3M, ESR, FOLT3, URIC3, FEIBC, FERR3, B12, FT4M #### [place] [address] [place] [address] #### HVAAO, ANA3, HEPAN, B2GPG, B2GPM, B2GPA #### [address] #### LUPUS #### The performing lab is in the report. MCH (RBC) [Entitic mass] 30.1 pg Normal 26.0-34.0 [facility] Comment on above: Performed By: #### A PTT, TSH5, HEMDF, LDH3, DDI2, BMP3M, ESR, FOLT3, URIC3, FEIBC, FERR3, B12, FT4M #### [facility] [address] [place] [address] #### HVAAO, ANA3, HEPAN, B2GPG, B2GPM, B2GPA #### [address] #### LUPUS #### The performing lab is in the report. MCHC 32.6 % Normal 32.0-36.0 [facility] Comment on above: Performed By: #### A PTT, TSH5, HEMDF, LDH3, DDI2, BMP3M, ESR, FOLT3, URIC3, FEIBC, FERR3, B12, FT4M #### [place] [address] [place] #### HVAAO, ANA3, HEPAN, B2GPG, B2GPM, B2GPA #### [address] #### LUPUS #### The performing lab is in the report. MCV (RBC) [Entitic vol] 92.4 fL Normal 79.0-98.0 [facility] Comment on above: Performed By: #### A PTT, TSH5, HEMDF, LDH3, DDI2, BMP3M, ESR, FOLT3, URIC3, FEIBC, FERR3, B12, FT4M #### [address] [place] #### HVAAO, ANA3, HEPAN, B2GPG, B2GPM, B2GPA #### [address] #### LUPUS #### The performing lab is in the report. Monocytes (Bld) [#/Vol] 0.9 10*3/uL High 0.0-0.8 [facility] Comment on above: Performed By: #### A PTT, TSH5, HEMDF, LDH3, DDI2, BMP3M, ESR, FOLT3, URIC3, FEIBC, FERR3, B12, FT4M #### [place] [address] [place] [address] #### HVAAO, ANA3, HEPAN, B2GPG, B2GPM, B2GPA #### [address] #### LUPUS #### The performing lab is in the report. Monocytes/100 WBC (Bld) 8.1 % Normal 2.0-10.0 [facility] Comment on above: Performed By: #### A PTT, TSH5, HEMDF, LDH3, DDI2, BMP3M, ESR, FOLT3, URIC3, FEIBC, FERR3, B12, FT4M #### [address] [place] #### HVAAO, ANA3, HEPAN, B2GPG, B2GPM, B2GPA #### [address] #### LUPUS #### The performing lab is in the report. Platelet mean volume (Bld) [Entitic vol] 8.8 fL Normal 7.4-10.4 [facility] Comment on above: Performed By: #### A PTT, TSH5, HEMDF, LDH3, DDI2, BMP3M, ESR, FOLT3, URIC3, FEIBC, FERR3, B12, FT4M #### [address] [place] #### HVAAO, ANA3, HEPAN, B2GPG, B2GPM, B2GPA #### [address] #### LUPUS #### The performing lab is in the report. Platelets (Bld) [#/Vol] 260 10*3/uL Normal 140-440 [facility] Comment on above: Performed By: #### A PTT, TSH5, HEMDF, LDH3, DDI2, BMP3M, ESR, FOLT3, URIC3, FEIBC, FERR3, B12, FT4M #### [address] [place] #### HVAAO, ANA3, HEPAN, B2GPG, B2GPM, B2GPA #### [address] #### LUPUS #### The performing lab is in the report. RBC (Bld) [#/Vol] 4.27 10*6/uL Normal 3.80-5.20 [facility] Comment on above: Performed By: #### A PTT, TSH5, HEMDF, LDH3, DDI2, BMP3M, ESR, FOLT3, URIC3, FEIBC, FERR3, B12, FT4M #### [place] [address] [place] [address] #### HVAAO, ANA3, HEPAN, B2GPG, B2GPM, B2GPA #### [address] #### LUPUS #### The performing lab is in the report. WBC (Bld) [#/Vol] 11.4 10*3/uL High 3.6-10.7 [facility] Comment on above: Performed By: #### A PTT, TSH5, HEMDF, LDH3, DDI2, BMP3M, ESR, FOLT3, URIC3, FEIBC, FERR3, B12, FT4M #### [facility] [address] [place] [address] #### HVAAO, ANA3, HEPAN, B2GPG, B2GPM, B2GPA #### [address] #### LUPUS #### The performing lab is in the report. Basic Metabolic Panelon 10-23 Calcium [Mass/Vol] 9.1 mg/dL Normal 8.4-10.4 [facility] Comment on above: Performed By: #### A PTT, TSH5, HEMDF, LDH3, DDI2, BMP3M, ESR, FOLT3, URIC3, FEIBC, FERR3, B12, FT4M #### [address] [place] [address] #### HVAAO, ANA3, HEPAN, B2GPG, B2GPM, B2GPA #### [address] #### LUPUS #### The performing lab is in the report. Anion gap [Moles/Vol] 6 mmol/L Normal 3-13 [facility] Comment on above: Performed By: #### A PTT, TSH5, HEMDF, LDH3, DDI2, BMP3M, ESR, FOLT3, URIC3, FEIBC, FERR3, B12, FT4M #### [facility] [address] [place] [address] #### HVAAO, ANA3, HEPAN, B2GPG, B2GPM, B2GPA #### [address] #### LUPUS #### The performing lab is in the report. CO2 [Moles/Vol] 28 mmol/L Normal 22-30 [facility] Comment on above: Performed By: #### A PTT, TSH5, HEMDF, LDH3, DDI2, BMP3M, ESR, FOLT3, URIC3, FEIBC, FERR3, B12, FT4M #### [facility] [address] [place] [address] #### HVAAO, ANA3, HEPAN, B2GPG, B2GPM, B2GPA #### [address] #### LUPUS #### The performing lab is in the report. Creatinine [Mass/Vol] 0.90 mg/dL Normal 0.52-1.25 [facility] Comment on above: Performed By: #### A PTT, TSH5, HEMDF, LDH3, DDI2, BMP3M, ESR, FOLT3, URIC3, FEIBC, FERR3, B12, FT4M #### [place] [address] [place] [address] #### HVAAO, ANA3, HEPAN, B2GPG, B2GPM, B2GPA #### [address] #### LUPUS #### The performing lab is in the report. GFR/1.73 sq M.predicted among blacks MDRD (S/P/Bld) [Vol rate/Area] 70.7 mL/min/{1.73_m2} Normal >60 [facility] Comment on above: Performed By: #### A PTT, TSH5, HEMDF, LDH3, DDI2, BMP3M, ESR, FOLT3, URIC3, FEIBC, FERR3, B12, FT4M #### [facility] [address] [place] [address] #### HVAAO, ANA3, HEPAN, B2GPG, B2GPM, B2GPA #### [facility] [address] [place] [address] #### LUPUS #### The performing lab is in the report. GFR/1.73 sq M.predicted among non-blacks MDRD (S/P/Bld) [Vol rate/Area] 61.0 mL/min/{1.73_m2} Normal >60 [facility] Comment on above: Result Comment: KDIG O [...] FOLT3, URIC3, FEIBC, FERR3, B12, FT4M #### [facility] [address] [place] [address] #### HVAAO, ANA3, HEPAN, B2GPG, B2GPM, B2GPA #### [address] #### LUPUS #### The performing lab is in the report. Glucose [Mass/Vol] 136 mg/dL High 70-100 [facility] Comment on above: Performed By: #### A PTT, TSH5, HEMDF, LDH3, DDI2, BMP3M, ESR, FOLT3, URIC3, FEIBC, FERR3, B12, FT4M #### [facility] [address] [place], [place] #### HVAAO, ANA3, HEPAN, B2GPG, B2GPM, B2GPA #### [address] #### LUPUS #### The performing lab is in the report. Urea nitrogen [Mass/Vol] 14 mg/dL Normal 9-20 [facility] Comment on above: Performed By: #### A PTT, TSH5, HEMDF, LDH3, DDI2, BMP3M, ESR, FOLT3, URIC3, FEIBC, FERR3, B12, FT4M #### [facility] [address] [place], [place] #### HVAAO, ANA3, HEPAN, B2GPG, B2GPM, B2GPA #### [address] #### LUPUS #### The performing lab is in the report. Chloride [Moles/Vol] 107 mmol/L Normal 98-107 [facility] Comment on above: Performed By: #### A PTT, TSH5, HEMDF, LDH3, DDI2, BMP3M, ESR, FOLT3, URIC3, FEIBC, FERR3, B12, FT4M #### [facility] [address] [place], [place] #### HVAAO, ANA3, HEPAN, B2GPG, B2GPM, B2GPA #### [address] #### LUPUS #### The performing lab is in the report. Potassium [Moles/Vol] 3.7 mmol/L Normal 3.5-5.1 [facility] Comment on above: Performed By: #### A PTT, TSH5, HEMDF, LDH3, DDI2, BMP3M, ESR, FOLT3, URIC3, FEIBC, FERR3, B12, FT4M #### [place] [address] [place] [address] #### HVAAO, ANA3, HEPAN, B2GPG, B2GPM, B2GPA #### [address] #### LUPUS #### The performing lab is in the report. Sodium [Moles/Vol] 142 mmol/L Normal 135-145 [facility] Comment on above: Performed By: #### A PTT, TSH5, HEMDF, LDH3, DDI2, BMP3M, ESR, FOLT3, URIC3, FEIBC, FERR3, B12, FT4M #### [address] [place], [place] #### HVAAO, ANA3, HEPAN, B2GPG, B2GPM, B2GPA #### [address] #### LUPUS #### The performing lab is in the report. Hemogram w/ Autodiffon 11-08 Abs Baso Cnt 0.1 10*3/uL Normal 0.0-0.2 [facility] Comment on above: Performed By: #### A PTT, TSH5, HEMDF, LDH3, DDI2, BMP3M, ESR, FOLT3, URIC3, FEIBC, FERR3, B12, FT4M #### [address] [address] #### HVAAO, ANA3, HEPAN, B2GPG, B2GPM, B2GPA #### [address] #### LUPUS #### The performing lab is in the report. Abs Neutrophile Cnt 8.0 10*3/uL High 1.8-7.0 [facility] Comment on above: Performed By: #### A PTT, TSH5, HEMDF, LDH3, DDI2, BMP3M, ESR, FOLT3, URIC3, FEIBC, FERR3, B12, FT4M #### [place] [address] [place] [address] #### HVAAO, ANA3, HEPAN, B2GPG, B2GPM, B2GPA #### [address] #### LUPUS #### The performing lab is in the report. Basophils/100 WBC (Bld) 0.5 % Normal 0.0-2.0 [facility] Comment on above: Performed By: #### A PTT, TSH5, HEMDF, LDH3, DDI2, BMP3M, ESR, FOLT3, URIC3, FEIBC, FERR3, B12, FT4M #### [address] [place] [address] #### HVAAO, ANA3, HEPAN, B2GPG, B2GPM, B2GPA #### [address] #### LUPUS #### The performing lab is in the report. Eosinophils (Bld) [#/Vol] 0.3 10*3/uL Normal 0.0-0.5 [facility] Comment on above: Performed By: #### A PTT, TSH5, HEMDF, LDH3, DDI2, BMP3M, ESR, FOLT3, URIC3, FEIBC, FERR3, B12, FT4M #### [address] [place] [address] #### HVAAO, ANA3, HEPAN, B2GPG, B2GPM, B2GPA #### [address] #### LUPUS #### The performing lab is in the report. Eosinophils/100 WBC (Bld) 2.9 % Normal 1.0-6.0 [facility] Comment on above: Performed By: #### A PTT, TSH5, HEMDF, LDH3, DDI2, BMP3M, ESR, FOLT3, URIC3, FEIBC, FERR3, B12, FT4M #### [place] [address] [place] [address] #### HVAAO, ANA3, HEPAN, B2GPG, B2GPM, B2GPA #### [address] #### LUPUS #### The performing lab is in the report. Erythrocyte distribution width (RBC) [Ratio] 15.2 % High 11.5-14.5 [facility] Comment on above: Performed By: #### A PTT, TSH5, HEMDF, LDH3, DDI2, BMP3M, ESR, FOLT3, URIC3, FEIBC, FERR3, B12, FT4M #### [address] [place] #### HVAAO, ANA3, HEPAN, B2GPG, B2GPM, B2GPA #### [address] #### LUPUS #### The performing lab is in the report. Granulocytes/100 WBC (Bld) 72.6 % Normal 40.0-80.0 [facility] Comment on above: Performed By: #### A PTT, TSH5, HEMDF, LDH3, DDI2, BMP3M, ESR, FOLT3, URIC3, FEIBC, FERR3, B12, FT4M #### [address] [place] #### HVAAO, ANA3, HEPAN, B2GPG, B2GPM, B2GPA #### [address] #### LUPUS #### The performing lab is in the report. Hematocrit (Bld) [Volume fraction] 39.8 % Normal 35.0-47.0 [facility] Comment on above: Performed By: #### A PTT, TSH5, HEMDF, LDH3, DDI2, BMP3M, ESR, FOLT3, URIC3, FEIBC, FERR3, B12, FT4M #### [place] [address] [place] [address] #### HVAAO, ANA3, HEPAN, B2GPG, B2GPM, B2GPA #### [address] #### LUPUS #### The performing lab is in the report. Hemoglobin (Bld) [Mass/Vol] 13.0 g/dL Normal 11.7-16.0 [facility] Comment on above: Performed By: #### A PTT, TSH5, HEMDF, LDH3, DDI2, BMP3M, ESR, FOLT3, URIC3, FEIBC, FERR3, B12, FT4M #### [address] [place] #### HVAAO, ANA3, HEPAN, B2GPG, B2GPM, B2GPA #### [address] #### LUPUS #### The performing lab is in the report. Lymphocytes (Bld) [#/Vol] 1.8 10*3/uL Normal 1.0-4.3 [facility] Comment on above: Performed By: #### A PTT, TSH5, HEMDF, LDH3, DDI2, BMP3M, ESR, FOLT3, URIC3, FEIBC, FERR3, B12, FT4M #### [address] [place] [address] #### HVAAO, ANA3, HEPAN, B2GPG, B2GPM, B2GPA #### [address] #### LUPUS #### The performing lab is in the report. Lymphocytes/100 WBC (Bld) 16.1 % Low 20.0-40.0 [facility] Comment on above: Performed By: #### A PTT, TSH5, HEMDF, LDH3, DDI2, BMP3M, ESR, FOLT3, URIC3, FEIBC, FERR3, B12, FT4M #### [facility] [address] [place] [address] #### HVAAO, ANA3, HEPAN, B2GPG, B2GPM, B2GPA #### [address] #### LUPUS #### The performing lab is in the report. MCH (RBC) [Entitic mass] 30.4 pg Normal 26.0-34.0 [facility] Comment on above: Performed By: #### A PTT, TSH5, HEMDF, LDH3, DDI2, BMP3M, ESR, FOLT3, URIC3, FEIBC, FERR3, B12, FT4M #### [place] [address] [place] [address] #### HVAAO, ANA3, HEPAN, B2GPG, B2GPM, B2GPA #### [address] #### LUPUS #### The performing lab is in the report. MCHC 32.8 % Normal 32.0-36.0 [facility] Comment on above: Performed By: #### A PTT, TSH5, HEMDF, LDH3, DDI2, BMP3M, ESR, FOLT3, URIC3, FEIBC, FERR3, B12, FT4M #### [place] [address] [place] [address] #### HVAAO, ANA3, HEPAN, B2GPG, B2GPM, B2GPA #### [address] #### LUPUS #### The performing lab is in the report. MCV (RBC) [Entitic vol] 92.6 fL Normal 79.0-98.0 [facility] Comment on above: Performed By: #### A PTT, TSH5, HEMDF, LDH3, DDI2, BMP3M, ESR, FOLT3, URIC3, FEIBC, FERR3, B12, FT4M #### [place] [address] [place] #### HVAAO, ANA3, HEPAN, B2GPG, B2GPM, B2GPA #### [address] #### LUPUS #### The performing lab is in the report. Monocytes (Bld) [#/Vol] 0.9 10*3/uL High 0.0-0.8 [facility] Comment on above: Performed By: #### A PTT, TSH5, HEMDF, LDH3, DDI2, BMP3M, ESR, FOLT3, URIC3, FEIBC, FERR3, B12, FT4M #### [address] [place] [address] #### HVAAO, ANA3, HEPAN, B2GPG, B2GPM, B2GPA #### [address] #### LUPUS #### The performing lab is in the report. Monocytes/100 WBC (Bld) 7.9 % Normal 2.0-10.0 [facility] Comment on above: Performed By: #### A PTT, TSH5, HEMDF, LDH3, DDI2, BMP3M, ESR, FOLT3, URIC3, FEIBC, FERR3, B12, FT4M #### [address] [place] [id number] #### HVAAO, ANA3, HEPAN, B2GPG, B2GPM, B2GPA #### [address] #### LUPUS #### The performing lab is in the report. Platelet mean volume (Bld) [Entitic vol] 8.7 fL Normal 7.4-10.4 [facility] Comment on above: Performed By: #### A PTT, TSH5, HEMDF, LDH3, DDI2, BMP3M, ESR, FOLT3, URIC3, FEIBC, FERR3, B12, FT4M #### [address] [place] [address] #### HVAAO, ANA3, HEPAN, B2GPG, B2GPM, B2GPA #### [address] #### LUPUS #### The performing lab is in the report. Platelets (Bld) [#/Vol] 236 10*3/uL Normal 140-440 [facility] Comment on above: Performed By: #### A PTT, TSH5, HEMDF, LDH3, DDI2, BMP3M, ESR, FOLT3, URIC3, FEIBC, FERR3, B12, FT4M #### [facility] [address] [place] [address] #### HVAAO, ANA3, HEPAN, B2GPG, B2GPM, B2GPA #### [address] #### LUPUS #### The performing lab is in the report. RBC (Bld) [#/Vol] 4.29 10*6/uL Normal 3.80-5.20 [facility] Comment on above: Performed By: #### A PTT, TSH5, HEMDF, LDH3, DDI2, BMP3M, ESR, FOLT3, URIC3, FEIBC, FERR3, B12, FT4M #### [facility] [address] [place], [place] #### HVAAO, ANA3, HEPAN, B2GPG, B2GPM, B2GPA #### [address] #### LUPUS #### The performing lab is in the report. WBC (Bld) [#/Vol] 11.0 10*3/uL High 3.6-10.7 [facility] Comment on above: Performed By: #### A PTT, TSH5, HEMDF, LDH3, DDI2, BMP3M, ESR, FOLT3, URIC3, FEIBC, FERR3, B12, FT4M #### [facility] [address] [facility] [place] [place] #### HVAAO, ANA3, HEPAN, B2GPG, B2GPM, B2GPA #### [address] #### LUPUS #### The performing lab is in the report. APTTon 11-07-2021 aPTT Coag (Bld) [Time] 29.9 s Normal 20.0-30.5 [facility] Comment on above: Result Comment: NOTE : The therapeutic time for Heparin anticoagulation, based on Xa activity inhibition, is an APTT of 46-80 seconds. Performed By: #### A PTT, TSH5, HEMDF, LDH3, DDI2, BMP3M, ESR, FOLT3, URIC3, FEIBC, FERR3, B12, FT4M #### [place] [address] [place] [address] #### HVAAO, ANA3, HEPAN, B2GPG, B2GPM, B2GPA #### [address] #### LUPUS #### The performing lab is in the report. Basic Metabolic Panelon 10-23 Calcium [Mass/Vol] 9.1 mg/dL Normal 8.4-10.4 [facility] Comment on above: Performed By: #### A PTT, TSH5, HEMDF, LDH3, DDI2, BMP3M, ESR, FOLT3, URIC3, FEIBC, FERR3, B12, FT4M #### [place] [address] [place] [address] #### HVAAO, ANA3, HEPAN, B2GPG, B2GPM, B2GPA #### [address] #### LUPUS #### The performing lab is in the report. Anion gap [Moles/Vol] 5 mmol/L Normal 3-13 [facility] Comment on above: Performed By: #### A PTT, TSH5, HEMDF, LDH3, DDI2, BMP3M, ESR, FOLT3, URIC3, FEIBC, FERR3, B12, FT4M #### [address] [place] [address] #### HVAAO, ANA3, HEPAN, B2GPG, B2GPM, B2GPA #### [address] #### LUPUS #### The performing lab is in the report. CO2 [Moles/Vol] 27 mmol/L Normal 22-30 [facility] Comment on above: Performed By: #### A PTT, TSH5, HEMDF, LDH3, DDI2, BMP3M, ESR, FOLT3, URIC3, FEIBC, FERR3, B12, FT4M #### [place] [address] [place] [address] #### HVAAO, ANA3, HEPAN, B2GPG, B2GPM, B2GPA #### [address] #### LUPUS #### The performing lab is in the report. Creatinine [Mass/Vol] 0.87 mg/dL Normal 0.52-1.25 [facility] Comment on above: Performed By: #### A PTT, TSH5, HEMDF, LDH3, DDI2, BMP3M, ESR, FOLT3, URIC3, FEIBC, FERR3, B12, FT4M #### [address] [facility] [place] #### HVAAO, ANA3, HEPAN, B2GPG, B2GPM, B2GPA #### [address] #### LUPUS #### The performing lab is in the report. GFR/1.73 sq M.predicted among blacks MDRD (S/P/Bld) [Vol rate/Area] 73.7 mL/min/{1.73_m2} Normal >60 [facility] Comment on above: Performed By: #### A PTT, TSH5, HEMDF, LDH3, DDI2, BMP3M, ESR, FOLT3, URIC3, FEIBC, FERR3, B12, FT4M #### [address] [place] [address] #### HVAAO, ANA3, HEPAN, B2GPG, B2GPM, B2GPA #### [address] #### LUPUS #### The performing lab is in the report. GFR/1.73 sq M.predicted among non-blacks MDRD (S/P/Bld) [Vol rate/Area] 63.6 mL/min/{1.73_m2} Normal >60 [facility] Comment on above: Result Comment: KDIG O [...] FOLT3, URIC3, FEIBC, FERR3, B12, FT4M #### [facility] [address] [place] [address] #### HVAAO, ANA3, HEPAN, B2GPG, B2GPM, B2GPA #### [facility] [address] [address] #### LUPUS #### The performing lab is in the report. Glucose [Mass/Vol] 111 mg/dL High 70-100 [facility] Comment on above: Performed By: #### A PTT, TSH5, HEMDF, LDH3, DDI2, BMP3M, ESR, FOLT3, URIC3, FEIBC, FERR3, B12, FT4M #### [facility] [address] [place] [address] #### HVAAO, ANA3, HEPAN, B2GPG, B2GPM, B2GPA #### [address] #### LUPUS #### The performing lab is in the report. Urea nitrogen [Mass/Vol] 12 mg/dL Normal 9-20 [facility] Comment on above: Performed By: #### A PTT, TSH5, HEMDF, LDH3, DDI2, BMP3M, ESR, FOLT3, URIC3, FEIBC, FERR3, B12, FT4M #### [place] [address] [place] [address] #### HVAAO, ANA3, HEPAN, B2GPG, B2GPM, B2GPA #### [address] #### LUPUS #### The performing lab is in the report. Chloride [Moles/Vol] 109 mmol/L High 98-107 [facility] Comment on above: Performed By: #### A PTT, TSH5, HEMDF, LDH3, DDI2, BMP3M, ESR, FOLT3, URIC3, FEIBC, FERR3, B12, FT4M #### [place] [address] [place] [address] #### HVAAO, ANA3, HEPAN, B2GPG, B2GPM, B2GPA #### [address] #### LUPUS #### The performing lab is in the report. Potassium [Moles/Vol] 3.9 mmol/L Normal 3.5-5.1 [facility] Comment on above: Performed By: #### A PTT, TSH5, HEMDF, LDH3, DDI2, BMP3M, ESR, FOLT3, URIC3, FEIBC, FERR3, B12, FT4M #### [place] [address] [place] [address] #### HVAAO, ANA3, HEPAN, B2GPG, B2GPM, B2GPA #### [address] #### LUPUS #### The performing lab is in the report. Sodium [Moles/Vol] 141 mmol/L Normal 135-145 [facility] Comment on above: Performed By: #### A PTT, TSH5, HEMDF, LDH3, DDI2, BMP3M, ESR, FOLT3, URIC3, FEIBC, FERR3, B12, FT4M #### [address] [place] [address] #### HVAAO, ANA3, HEPAN, B2GPG, B2GPM, B2GPA #### [address] #### LUPUS #### The performing lab is in the report. Hemogram w/ Autodiffon 11-07 Abs Baso Cnt 0.0 10*3/uL Normal 0.0-0.2 [facility] Comment on above: Performed By: #### A PTT, TSH5, HEMDF, LDH3, DDI2, BMP3M, ESR, FOLT3, URIC3, FEIBC, FERR3, B12, FT4M #### [address] [place] [address] #### HVAAO, ANA3, HEPAN, B2GPG, B2GPM, B2GPA #### [address] [id number] #### LUPUS #### The performing lab is in the report. Abs Neutrophile Cnt 6.0 10*3/uL Normal 1.8-7.0 [facility] Comment on above: Performed By: #### A PTT, TSH5, HEMDF, LDH3, DDI2, BMP3M, ESR, FOLT3, URIC3, FEIBC, FERR3, B12, FT4M #### [address] [place] [address] #### HVAAO, ANA3, HEPAN, B2GPG, B2GPM, B2GPA #### [address] #### LUPUS #### The performing lab is in the report. Basophils/100 WBC (Bld) 0.5 % Normal 0.0-2.0 [facility] Comment on above: Performed By: #### A PTT, TSH5, HEMDF, LDH3, DDI2, BMP3M, ESR, FOLT3, URIC3, FEIBC, FERR3, B12, FT4M #### [address] [place] [address] #### HVAAO, ANA3, HEPAN, B2GPG, B2GPM, B2GPA #### [address] #### LUPUS #### The performing lab is in the report. Eosinophils (Bld) [#/Vol] 0.4 10*3/uL Normal 0.0-0.5 [facility] Comment on above: Performed By: #### A PTT, TSH5, HEMDF, LDH3, DDI2, BMP3M, ESR, FOLT3, URIC3, FEIBC, FERR3, B12, FT4M #### [address] [place] [address] #### HVAAO, ANA3, HEPAN, B2GPG, B2GPM, B2GPA #### [address] #### LUPUS #### The performing lab is in the report. Eosinophils/100 WBC (Bld) 4.0 % Normal 1.0-6.0 [facility] Comment on above: Performed By: #### A PTT, TSH5, HEMDF, LDH3, DDI2, BMP3M, ESR, FOLT3, URIC3, FEIBC, FERR3, B12, FT4M #### [address] [place] [id number] #### HVAAO, ANA3, HEPAN, B2GPG, B2GPM, B2GPA #### [address] #### LUPUS #### The performing lab is in the report. Erythrocyte distribution width (RBC) [Ratio] 15.1 % High 11.5-14.5 [facility] Comment on above: Performed By: #### A PTT, TSH5, HEMDF, LDH3, DDI2, BMP3M, ESR, FOLT3, URIC3, FEIBC, FERR3, B12, FT4M #### [address] [place] [address] #### HVAAO, ANA3, HEPAN, B2GPG, B2GPM, B2GPA #### [address] #### LUPUS #### The performing lab is in the report. Granulocytes/100 WBC (Bld) 64.8 % Normal 40.0-80.0 [facility] Comment on above: Performed By: #### A PTT, TSH5, HEMDF, LDH3, DDI2, BMP3M, ESR, FOLT3, URIC3, FEIBC, FERR3, B12, FT4M #### [address] [place] #### HVAAO, ANA3, HEPAN, B2GPG, B2GPM, B2GPA #### [address] #### LUPUS #### The performing lab is in the report. Hematocrit (Bld) [Volume fraction] 42.6 % Normal 35.0-47.0 [facility] Comment on above: Performed By: #### A PTT, TSH5, HEMDF, LDH3, DDI2, BMP3M, ESR, FOLT3, URIC3, FEIBC, FERR3, B12, FT4M #### [address] [place] [address] #### HVAAO, ANA3, HEPAN, B2GPG, B2GPM, B2GPA #### [address] #### LUPUS #### The performing lab is in the report. Hemoglobin (Bld) [Mass/Vol] 13.9 g/dL Normal 11.7-16.0 [facility] Comment on above: Performed By: #### A PTT, TSH5, HEMDF, LDH3, DDI2, BMP3M, ESR, FOLT3, URIC3, FEIBC, FERR3, B12, FT4M #### [address] [place] [address] #### HVAAO, ANA3, HEPAN, B2GPG, B2GPM, B2GPA #### [address] #### LUPUS #### The performing lab is in the report. Lymphocytes (Bld) [#/Vol] 2.1 10*3/uL Normal 1.0-4.3 [facility] Comment on above: Performed By: #### A PTT, TSH5, HEMDF, LDH3, DDI2, BMP3M, ESR, FOLT3, URIC3, FEIBC, FERR3, B12, FT4M #### [address] [place] [address] #### HVAAO, ANA3, HEPAN, B2GPG, B2GPM, B2GPA #### [address] #### LUPUS #### The performing lab is in the report. Lymphocytes/100 WBC (Bld) 22.8 % Normal 20.0-40.0 [facility] Comment on above: Performed By: #### A PTT, TSH5, HEMDF, LDH3, DDI2, BMP3M, ESR, FOLT3, URIC3, FEIBC, FERR3, B12, FT4M #### [address] [facility] [place] [place] #### HVAAO, ANA3, HEPAN, B2GPG, B2GPM, B2GPA #### [address] #### LUPUS #### The performing lab is in the report. MCH (RBC) [Entitic mass] 30.2 pg Normal 26.0-34.0 [facility] Comment on above: Performed By: #### A PTT, TSH5, HEMDF, LDH3, DDI2, BMP3M, ESR, FOLT3, URIC3, FEIBC, FERR3, B12, FT4M #### [address] [place] #### HVAAO, ANA3, HEPAN, B2GPG, B2GPM, B2GPA #### [address] #### LUPUS #### The performing lab is in the report. MCHC 32.7 % Normal 32.0-36.0 [facility] Comment on above: Performed By: #### A PTT, TSH5, HEMDF, LDH3, DDI2, BMP3M, ESR, FOLT3, URIC3, FEIBC, FERR3, B12, FT4M #### [facility] [address] [place], [place] #### HVAAO, ANA3, HEPAN, B2GPG, B2GPM, B2GPA #### [address] #### LUPUS #### The performing lab is in the report. MCV (RBC) [Entitic vol] 92.4 fL Normal 79.0-98.0 [facility] Comment on above: Performed By: #### A PTT, TSH5, HEMDF, LDH3, DDI2, BMP3M, ESR, FOLT3, URIC3, FEIBC, FERR3, B12, FT4M #### [facility] [address] [place], [place] #### HVAAO, ANA3, HEPAN, B2GPG, B2GPM, B2GPA #### [address] #### LUPUS #### The performing lab is in the report. Monocytes (Bld) [#/Vol] 0.7 10*3/uL Normal 0.0-0.8 [facility] Comment on above: Performed By: #### A PTT, TSH5, HEMDF, LDH3, DDI2, BMP3M, ESR, FOLT3, URIC3, FEIBC, FERR3, B12, FT4M #### [facility] [address] [place], [place] #### HVAAO, ANA3, HEPAN, B2GPG, B2GPM, B2GPA #### [address] #### LUPUS #### The performing lab is in the report. Monocytes/100 WBC (Bld) 7.9 % Normal 2.0-10.0 [facility] Comment on above: Performed By: #### A PTT, TSH5, HEMDF, LDH3, DDI2, BMP3M, ESR, FOLT3, URIC3, FEIBC, FERR3, B12, FT4M #### [facility] [address] [place] [address] #### HVAAO, ANA3, HEPAN, B2GPG, B2GPM, B2GPA #### [address] #### LUPUS #### The performing lab is in the report. Platelet mean volume (Bld) [Entitic vol] 8.7 fL Normal 7.4-10.4 [facility] Comment on above: Performed By: #### A PTT, TSH5, HEMDF, LDH3, DDI2, BMP3M, ESR, FOLT3, URIC3, FEIBC, FERR3, B12, FT4M #### [facility] [address] [place], [place] #### HVAAO, ANA3, HEPAN, B2GPG, B2GPM, B2GPA #### [address] #### LUPUS #### The performing lab is in the report. Platelets (Bld) [#/Vol] 232 10*3/uL Normal 140-440 [facility] Comment on above: Performed By: #### A PTT, TSH5, HEMDF, LDH3, DDI2, BMP3M, ESR, FOLT3, URIC3, FEIBC, FERR3, B12, FT4M #### [facility] [address] [place] [address] #### HVAAO, ANA3, HEPAN, B2GPG, B2GPM, B2GPA #### [address] #### LUPUS #### The performing lab is in the report. RBC (Bld) [#/Vol] 4.61 10*6/uL Normal 3.80-5.20 [facility] Comment on above: Performed By: #### A PTT, TSH5, HEMDF, LDH3, DDI2, BMP3M, ESR, FOLT3, URIC3, FEIBC, FERR3, B12, FT4M #### [facility] [address] [place] [address] #### HVAAO, ANA3, HEPAN, B2GPG, B2GPM, B2GPA #### [address] [address] #### LUPUS #### The performing lab is in the report. WBC (Bld) [#/Vol] 9.2 10*3/uL Normal 3.6-10.7 [facility] Comment on above: Performed By: #### A PTT, TSH5, HEMDF, LDH3, DDI2, BMP3M, ESR, FOLT3, URIC3, FEIBC, FERR3, B12, FT4M #### [facility] [address] [place] [address] #### HVAAO, ANA3, HEPAN, B2GPG, B2GPM, B2GPA #### [address] [address] #### LUPUS #### The performing lab is [...] Real-time, RT-PCR This assay was developed by [email or web address] and distributed under an Emergency Use Authorization (EUA) granted by the FDA for the qualitative detection of nucleic acids from SARS-CoV-2, Influenza A, Influenza B, and Respiratory Syncytial Virus. Provider and patient fact sheets can be found at https://www.fda.gov/media /338639/download and https://www.fda.gov/media /868330/download. Expected Result: Not Detected _ Method: Real-time, RT-PCR This assay was developed by [email or web address] and distributed under an Emergency Use Authorization (EUA) granted by the FDA for the qualitative detection of nucleic acids from SARS-CoV-2, Influenza A, Influenza B, and Respiratory Syncytial Virus. Provider and patient fact sheets can be found at https://www.fda.gov/media /173847/download and https://www.fda.gov/media /195404/download. Normal [facility] Comment on above: Performed By: #### A PTT, TSH5, HEMDF, LDH3, DDI2, BMP3M, ESR, FOLT3, URIC3, FEIBC, FERR3, B12, FT4M #### [facility] [address] [place] [address] #### HVAAO, ANA3, HEPAN, B2GPG, B2GPM, B2GPA #### [address] [address] #### LUPUS #### The performing lab is in the report. APTTon 11-06-2021 aPTT Coag (Bld) [Time] 28.1 s Normal 20.0-30.5 [facility] Comment on above: Result Comment: NOTE : The therapeutic time for Heparin anticoagulation, based on Xa activity inhibition, is an APTT of 46-80 seconds. Performed By: #### A PTT, TSH5, HEMDF, LDH3, DDI2, BMP3M, ESR, FOLT3, URIC3, FEIBC, FERR3, B12, FT4M #### [facility] [address] [place] [address] #### HVAAO, ANA3, HEPAN, B2GPG, B2GPM, B2GPA #### [address] [address] #### LUPUS #### The performing lab is in the report. Basic Metabolic Panelon - Anion gap [Moles/Vol] 6 mmol/L Normal 3-13 [facility] Comment on above: Performed By: #### A PTT, TSH5, HEMDF, LDH3, DDI2, BMP3M, ESR, FOLT3, URIC3, FEIBC, FERR3, B12, FT4M #### [place] [address] [place] [address] #### HVAAO, ANA3, HEPAN, B2GPG, B2GPM, B2GPA #### [address] #### LUPUS #### The performing lab is in the report. Calcium [Mass/Vol] 9.0 mg/dL Normal 8.4-10.4 [facility] Comment on above: Performed By: #### A PTT, TSH5, HEMDF, LDH3, DDI2, BMP3M, ESR, FOLT3, URIC3, FEIBC, FERR3, B12, FT4M #### [address] [place] [address] #### HVAAO, ANA3, HEPAN, B2GPG, B2GPM, B2GPA #### [address] #### LUPUS #### The performing lab is in the report. CO2 [Moles/Vol] 28 mmol/L Normal 22-30 [facility] Comment on above: Performed By: #### A PTT, TSH5, HEMDF, LDH3, DDI2, BMP3M, ESR, FOLT3, URIC3, FEIBC, FERR3, B12, FT4M #### [address] [place] [address] #### HVAAO, ANA3, HEPAN, B2GPG, B2GPM, B2GPA #### [address] #### LUPUS #### The performing lab is in the report. Glucose [Mass/Vol] 105 mg/dL High 70-100 [facility] Comment on above: Performed By: #### A PTT, TSH5, HEMDF, LDH3, DDI2, BMP3M, ESR, FOLT3, URIC3, FEIBC, FERR3, B12, FT4M #### [place] [address] [place] [address] #### HVAAO, ANA3, HEPAN, B2GPG, B2GPM, B2GPA #### [address] #### LUPUS #### The performing lab is in the report. Urea nitrogen [Mass/Vol] 14 mg/dL Normal 9-20 [facility] Comment on above: Performed By: #### A PTT, TSH5, HEMDF, LDH3, DDI2, BMP3M, ESR, FOLT3, URIC3, FEIBC, FERR3, B12, FT4M #### [place] [address] [place] [address] #### HVAAO, ANA3, HEPAN, B2GPG, B2GPM, B2GPA #### [address] #### LUPUS #### The performing lab is in the report. Creatinine [Mass/Vol] 0.90 mg/dL Normal 0.52-1.25 [facility] Comment on above: Performed By: #### A PTT, TSH5, HEMDF, LDH3, DDI2, BMP3M, ESR, FOLT3, URIC3, FEIBC, FERR3, B12, FT4M #### [place] [address] [place] [address] #### HVAAO, ANA3, HEPAN, B2GPG, B2GPM, B2GPA #### [address] #### LUPUS #### The performing lab is in the report. GFR/1.73 sq M.predicted among blacks MDRD (S/P/Bld) [Vol rate/Area] 70.7 mL/min/{1.73_m2} Normal >60 [facility] Comment on above: Performed By: #### A PTT, TSH5, HEMDF, LDH3, DDI2, BMP3M, ESR, FOLT3, URIC3, FEIBC, FERR3, B12, FT4M #### [facility] [address] [place] [address] #### HVAAO, ANA3, HEPAN, B2GPG, B2GPM, B2GPA #### [facility] [address] [place] [address] #### LUPUS #### The performing lab is in the report. GFR/1.73 sq M.predicted among non-blacks MDRD (S/P/Bld) [Vol rate/Area] 61.0 mL/min/{1.73_m2} Normal >60 [facility] Comment on above: Result Comment: KDIG O [...] FEIBC, FERR3, B12, FT4M #### [facility] [address] [place] [address] #### HVAAO, ANA3, HEPAN, B2GPG, B2GPM, B2GPA #### [facility] [address] [place] [address] #### LUPUS #### The performing lab is in the report. Potassium [Moles/Vol] 3.6 mmol/L Normal 3.5-5.1 [facility] Comment on above: Performed By: #### A PTT, TSH5, HEMDF, LDH3, DDI2, BMP3M, ESR, FOLT3, URIC3, FEIBC, FERR3, B12, FT4M #### [facility] [address] [place] [address] #### HVAAO, ANA3, HEPAN, B2GPG, B2GPM, B2GPA #### [address] #### LUPUS #### The performing lab is in the report. Chloride [Moles/Vol] 108 mmol/L High 98-107 [facility] Comment on above: Performed By: #### A PTT, TSH5, HEMDF, LDH3, DDI2, BMP3M, ESR, FOLT3, URIC3, FEIBC, FERR3, B12, FT4M #### [place] [address] [place] [address] #### HVAAO, ANA3, HEPAN, B2GPG, B2GPM, B2GPA #### [address] #### LUPUS #### The performing lab is in the report. Sodium [Moles/Vol] 141 mmol/L Normal 135-145 [facility] Comment on above: Performed By: #### A PTT, TSH5, HEMDF, LDH3, DDI2, BMP3M, ESR, FOLT3, URIC3, FEIBC, FERR3, B12, FT4M #### [place] [address] [place] [address] #### HVAAO, ANA3, HEPAN, B2GPG, B2GPM, B2GPA #### [address] #### LUPUS #### The performing lab is in the report. Hemogram w/ Autodiffon 11-06 Abs Baso Cnt 0.1 10*3/uL Normal 0.0-0.2 [facility] Comment on above: Performed By: #### A PTT, TSH5, HEMDF, LDH3, DDI2, BMP3M, ESR, FOLT3, URIC3, FEIBC, FERR3, B12, FT4M #### [address] [place] [address] #### HVAAO, ANA3, HEPAN, B2GPG, B2GPM, B2GPA #### [address] #### LUPUS #### The performing lab is in the report. Abs Neutrophile Cnt 5.9 10*3/uL Normal 1.8-7.0 [facility] Comment on above: Performed By: #### A PTT, TSH5, HEMDF, LDH3, DDI2, BMP3M, ESR, FOLT3, URIC3, FEIBC, FERR3, B12, FT4M #### [address] [place] #### HVAAO, ANA3, HEPAN, B2GPG, B2GPM, B2GPA #### [address] #### LUPUS #### The performing lab is in the report. Basophils/100 WBC (Bld) 0.7 % Normal 0.0-2.0 [facility] Comment on above: Performed By: #### A PTT, TSH5, HEMDF, LDH3, DDI2, BMP3M, ESR, FOLT3, URIC3, FEIBC, FERR3, B12, FT4M #### [address] [place] [id number] #### HVAAO, ANA3, HEPAN, B2GPG, B2GPM, B2GPA #### [address] #### LUPUS #### The performing lab is in the report. Eosinophils (Bld) [#/Vol] 0.3 10*3/uL Normal 0.0-0.5 [facility] Comment on above: Performed By: #### A PTT, TSH5, HEMDF, LDH3, DDI2, BMP3M, ESR, FOLT3, URIC3, FEIBC, FERR3, B12, FT4M #### [address] [place] [address] #### HVAAO, ANA3, HEPAN, B2GPG, B2GPM, B2GPA #### [address] [address] #### LUPUS #### The performing lab is in the report. Eosinophils/100 WBC (Bld) 3.7 % Normal 1.0-6.0 [facility] Comment on above: Performed By: #### A PTT, TSH5, HEMDF, LDH3, DDI2, BMP3M, ESR, FOLT3, URIC3, FEIBC, FERR3, B12, FT4M #### [address] [place] [address] #### HVAAO, ANA3, HEPAN, B2GPG, B2GPM, B2GPA #### [address] #### LUPUS #### The performing lab is in the report. Erythrocyte distribution width (RBC) [Ratio] 15.2 % High 11.5-14.5 [facility] Comment on above: Performed By: #### A PTT, TSH5, HEMDF, LDH3, DDI2, BMP3M, ESR, FOLT3, URIC3, FEIBC, FERR3, B12, FT4M #### [address] [place] [address] #### HVAAO, ANA3, HEPAN, B2GPG, B2GPM, B2GPA #### [address] #### LUPUS #### The performing lab is in the report. Granulocytes/100 WBC (Bld) 65.8 % Normal 40.0-80.0 [facility] Comment on above: Performed By: #### A PTT, TSH5, HEMDF, LDH3, DDI2, BMP3M, ESR, FOLT3, URIC3, FEIBC, FERR3, B12, FT4M #### [address] [place] [address] #### HVAAO, ANA3, HEPAN, B2GPG, B2GPM, B2GPA #### [address] #### LUPUS #### The performing lab is in the report. Hematocrit (Bld) [Volume fraction] 39.8 % Normal 35.0-47.0 [facility] Comment on above: Performed By: #### A PTT, TSH5, HEMDF, LDH3, DDI2, BMP3M, ESR, FOLT3, URIC3, FEIBC, FERR3, B12, FT4M #### [place] [address] [place] [address] #### HVAAO, ANA3, HEPAN, B2GPG, B2GPM, B2GPA #### [address] #### LUPUS #### The performing lab is in the report. Hemoglobin (Bld) [Mass/Vol] 13.2 g/dL Normal 11.7-16.0 [facility] Comment on above: Performed By: #### A PTT, TSH5, HEMDF, LDH3, DDI2, BMP3M, ESR, FOLT3, URIC3, FEIBC, FERR3, B12, FT4M #### [address] [facility] [place] #### HVAAO, ANA3, HEPAN, B2GPG, B2GPM, B2GPA #### [address] #### LUPUS #### The performing lab is in the report. Lymphocytes (Bld) [#/Vol] 2.0 10*3/uL Normal 1.0-4.3 [facility] Comment on above: Performed By: #### A PTT, TSH5, HEMDF, LDH3, DDI2, BMP3M, ESR, FOLT3, URIC3, FEIBC, FERR3, B12, FT4M #### [address] [place] #### HVAAO, ANA3, HEPAN, B2GPG, B2GPM, B2GPA #### [address] #### LUPUS #### The performing lab is in the report. Lymphocytes/100 WBC (Bld) 22.0 % Normal 20.0-40.0 [facility] Comment on above: Performed By: #### A PTT, TSH5, HEMDF, LDH3, DDI2, BMP3M, ESR, FOLT3, URIC3, FEIBC, FERR3, B12, FT4M #### [facility] [address] [place] [address] #### HVAAO, ANA3, HEPAN, B2GPG, B2GPM, B2GPA #### [address] #### LUPUS #### The performing lab is in the report. MCH (RBC) [Entitic mass] 30.1 pg Normal 26.0-34.0 [facility] Comment on above: Performed By: #### A PTT, TSH5, HEMDF, LDH3, DDI2, BMP3M, ESR, FOLT3, URIC3, FEIBC, FERR3, B12, FT4M #### [facility] [address] [place] [address] #### HVAAO, ANA3, HEPAN, B2GPG, B2GPM, B2GPA #### [address] #### LUPUS #### The performing lab is in the report. MCHC 33.2 % Normal 32.0-36.0 [facility] Comment on above: Performed By: #### A PTT, TSH5, HEMDF, LDH3, DDI2, BMP3M, ESR, FOLT3, URIC3, FEIBC, FERR3, B12, FT4M #### [facility] [address] [place] [address] #### HVAAO, ANA3, HEPAN, B2GPG, B2GPM, B2GPA #### [address] #### LUPUS #### The performing lab is in the report. MCV (RBC) [Entitic vol] 90.6 fL Normal 79.0-98.0 [facility] Comment on above: Performed By: #### A PTT, TSH5, HEMDF, LDH3, DDI2, BMP3M, ESR, FOLT3, URIC3, FEIBC, FERR3, B12, FT4M #### [address] [place] [address] #### HVAAO, ANA3, HEPAN, B2GPG, B2GPM, B2GPA #### [address] #### LUPUS #### The performing lab is in the report. Monocytes (Bld) [#/Vol] 0.7 10*3/uL Normal 0.0-0.8 [facility] Comment on above: Performed By: #### A PTT, TSH5, HEMDF, LDH3, DDI2, BMP3M, ESR, FOLT3, URIC3, FEIBC, FERR3, B12, FT4M #### [address] [place] [address] #### HVAAO, ANA3, HEPAN, B2GPG, B2GPM, B2GPA #### [address] #### LUPUS #### The performing lab is in the report. Monocytes/100 WBC (Bld) 7.8 % Normal 2.0-10.0 [facility] Comment on above: Performed By: #### A PTT, TSH5, HEMDF, LDH3, DDI2, BMP3M, ESR, FOLT3, URIC3, FEIBC, FERR3, B12, FT4M #### [address] [place] [address] #### HVAAO, ANA3, HEPAN, B2GPG, B2GPM, B2GPA #### [address] #### LUPUS #### The performing lab is in the report. Platelet mean volume (Bld) [Entitic vol] 8.7 fL Normal 7.4-10.4 [facility] Comment on above: Performed By: #### A PTT, TSH5, HEMDF, LDH3, DDI2, BMP3M, ESR, FOLT3, URIC3, FEIBC, FERR3, B12, FT4M #### [place] [address] [place] [address] #### HVAAO, ANA3, HEPAN, B2GPG, B2GPM, B2GPA #### [address] #### LUPUS #### The performing lab is in the report. Platelets (Bld) [#/Vol] 207 10*3/uL Normal 140-440 [facility] Comment on above: Performed By: #### A PTT, TSH5, HEMDF, LDH3, DDI2, BMP3M, ESR, FOLT3, URIC3, FEIBC, FERR3, B12, FT4M #### [address] [place] [address] #### HVAAO, ANA3, HEPAN, B2GPG, B2GPM, B2GPA #### [address] #### LUPUS #### The performing lab is in the report. RBC (Bld) [#/Vol] 4.39 10*6/uL Normal 3.80-5.20 [facility] Comment on above: Performed By: #### A PTT, TSH5, HEMDF, LDH3, DDI2, BMP3M, ESR, FOLT3, URIC3, FEIBC, FERR3, B12, FT4M #### [address] [place] [address] #### HVAAO, ANA3, HEPAN, B2GPG, B2GPM, B2GPA #### [address] #### LUPUS #### The performing lab is in the report. WBC (Bld) [#/Vol] 9.0 10*3/uL Normal 3.6-10.7 [facility] Comment on above: Performed By: #### A PTT, TSH5, HEMDF, LDH3, DDI2, BMP3M, ESR, FOLT3, URIC3, FEIBC, FERR3, B12, FT4M #### [facility] [address] [place] [address] #### HVAAO, ANA3, HEPAN, B2GPG, B2GPM, B2GPA #### [facility] [address] [place] [address] #### LUPUS #### The performing lab is in the report. APTTon 11-05-2021 aPTT Coag (Bld) [Time] 58.6 s High 20.0-30.5 [facility] Comment on above: Result Comment: NOTE : The therapeutic time for Heparin anticoagulation, based on Xa activity inhibition, is an APTT of 46-80 seconds. Performed By: #### A PTT, TSH5, HEMDF, LDH3, DDI2, BMP3M, ESR, FOLT3, URIC3, FEIBC, FERR3, B12, FT4M ####[place] [address] [place] [address]#### HVAAO, ANA3, HEPAN, B2GPG, B2GPM, B2GPA ####[place] [address] [place] [address]#### LUPUS ####The performing lab is in the report. aPTT Coag (Bld) [Time] 65.8 s High 20.0-30.5 [facility] Comment on above: Result Comment: NOTE : The therapeutic time for Heparin anticoagulation, based on Xa activity inhibition, is an APTT of 46-80 seconds. Performed By: #### A PTT, TSH5, HEMDF, LDH3, DDI2, BMP3M, ESR, FOLT3, URIC3, FEIBC, FERR3, B12, FT4M #### [facility] [address] [place] [address] #### HVAAO, ANA3, HEPAN, B2GPG, B2GPM, B2GPA #### [facility] [address] [place] [address] #### LUPUS #### The performing lab is in the report. Acute Hepatitis Panelon 02-1 4-2022 Hep C Antibody Not detected Normal Not Detected [facility] Comment on above: Result Comment: Patients with DETECTED Hepatitis C Ab results should have a new specimen submitted for supplemental testing with a Hepatitis C Quantitative RNA assay (viral load), if clinically indicated. Performed By: #### A PTT, TSH5, HEMDF, LDH3, DDI2, BMP3M, ESR, FOLT3, URIC3, FEIBC, FERR3, B12, FT4M ####[address] [place] [address]#### HVAAO, ANA3, HEPAN, B2GPG, B2GPM, B2GPA ####[address] #### LUPUS ####The performing lab is in the report. Hep A Virus Ab,IgM Not detected Normal Not Detected [facility] Comment on above: Performed By: #### A PTT, TSH5, HEMDF, LDH3, DDI2, BMP3M, ESR, FOLT3, URIC3, FEIBC, FERR3, B12, FT4M ####[address] [address]#### HVAAO, ANA3, HEPAN, B2GPG, B2GPM, B2GPA ####[address] #### LUPUS ####The performing lab is in the report. Hep B Surface Ag Not detected Normal Not Detected [facility] Comment on above: Performed By: #### A PTT, TSH5, HEMDF, LDH3, DDI2, BMP3M, ESR, FOLT3, URIC3, FEIBC, FERR3, B12, FT4M ####[address] [address]#### HVAAO, ANA3, HEPAN, B2GPG, B2GPM, B2GPA ####[address] #### LUPUS ####The performing lab is in the report. Hep B Core IgM Not detected Normal Not Detected [facility] Comment on above: Performed By: #### A PTT, TSH5, HEMDF, LDH3, DDI2, BMP3M, ESR, FOLT3, URIC3, FEIBC, FERR3, B12, FT4M ####[facility] [place] [address]#### HVAAO, ANA3, HEPAN, B2GPG, B2GPM, B2GPA ####[facility] [place], [place] #### LUPUS ####The performing lab is in the report. Basic Metabolic Panelon 10-23 Calcium [Mass/Vol] 9.1 mg/dL Normal 8.4-10.4 [facility] Comment on above: Performed By: #### A PTT, TSH5, HEMDF, LDH3, DDI2, BMP3M, ESR, FOLT3, URIC3, FEIBC, FERR3, B12, FT4M #### [facility] [address] [place] [address] #### HVAAO, ANA3, HEPAN, B2GPG, B2GPM, B2GPA #### [facility] [address], [place] #### LUPUS #### The performing lab is in the report. Glucose [Mass/Vol] 110 mg/dL High 70-100 [facility] Comment on above: Performed By: #### A PTT, TSH5, HEMDF, LDH3, DDI2, BMP3M, ESR, FOLT3, URIC3, FEIBC, FERR3, B12, FT4M #### [facility] [address] [place] [address] #### HVAAO, ANA3, HEPAN, B2GPG, B2GPM, B2GPA #### [address] #### LUPUS #### The performing lab is in the report. Urea nitrogen [Mass/Vol] 13 mg/dL Normal 9-20 [facility] Comment on above: Performed By: #### A PTT, TSH5, HEMDF, LDH3, DDI2, BMP3M, ESR, FOLT3, URIC3, FEIBC, FERR3, B12, FT4M #### [place] [address] [place] [address] #### HVAAO, ANA3, HEPAN, B2GPG, B2GPM, B2GPA #### [address] #### LUPUS #### The performing lab is in the report. Anion gap [Moles/Vol] 3 mmol/L Normal 3-13 [facility] Comment on above: Performed By: #### A PTT, TSH5, HEMDF, LDH3, DDI2, BMP3M, ESR, FOLT3, URIC3, FEIBC, FERR3, B12, FT4M #### [address] [place] #### HVAAO, ANA3, HEPAN, B2GPG, B2GPM, B2GPA #### [address] #### LUPUS #### The performing lab is in the report. CO2 [Moles/Vol] 29 mmol/L Normal 22-30 [facility] Comment on above: Performed By: #### A PTT, TSH5, HEMDF, LDH3, DDI2, BMP3M, ESR, FOLT3, URIC3, FEIBC, FERR3, B12, FT4M #### [address] [place] #### HVAAO, ANA3, HEPAN, B2GPG, B2GPM, B2GPA #### [address] #### LUPUS #### The performing lab is in the report. Creatinine [Mass/Vol] 0.96 mg/dL Normal 0.52-1.25 [facility] Comment on above: Performed By: #### A PTT, TSH5, HEMDF, LDH3, DDI2, BMP3M, ESR, FOLT3, URIC3, FEIBC, FERR3, B12, FT4M #### [place] [address] [place] [address] #### HVAAO, ANA3, HEPAN, B2GPG, B2GPM, B2GPA #### [facility] [address] [place] [address] #### LUPUS #### The performing lab is in the report. GFR/1.73 sq M.predicted among blacks MDRD (S/P/Bld) [Vol rate/Area] 65.4 mL/min/{1.73_m2} Normal >60 [facility] Comment on above: Performed By: #### A PTT, TSH5, HEMDF, LDH3, DDI2, BMP3M, ESR, FOLT3, URIC3, FEIBC, FERR3, B12, FT4M #### [facility] [employer] [facility] [address] [place] [address] #### HVAAO, ANA3, HEPAN, B2GPG, B2GPM, B2GPA #### [address] [id number] #### LUPUS #### The performing lab is in the report. GFR/1.73 sq M.predicted among non-blacks MDRD (S/P/Bld) [Vol rate/Area] 56.4 mL/min/{1.73_m2} Abnormal >60 [facility] Comment on above: Result Comment: KDIG O [...] FOLT3, URIC3, FEIBC, FERR3, B12, FT4M #### [place] [address] [place] [address] #### HVAAO, ANA3, HEPAN, B2GPG, B2GPM, B2GPA #### [address] #### LUPUS #### The performing lab is in the report. Chloride [Moles/Vol] 107 mmol/L Normal 98-107 [facility] Comment on above: Performed By: #### A PTT, TSH5, HEMDF, LDH3, DDI2, BMP3M, ESR, FOLT3, URIC3, FEIBC, FERR3, B12, FT4M #### [place] [address] [place] #### HVAAO, ANA3, HEPAN, B2GPG, B2GPM, B2GPA #### [address] #### LUPUS #### The performing lab is in the report. Potassium [Moles/Vol] 3.8 mmol/L Normal 3.5-5.1 [facility] Comment on above: Performed By: #### A PTT, TSH5, HEMDF, LDH3, DDI2, BMP3M, ESR, FOLT3, URIC3, FEIBC, FERR3, B12, FT4M #### [place] [address] [place] #### HVAAO, ANA3, HEPAN, B2GPG, B2GPM, B2GPA #### [address] #### LUPUS #### The performing lab is in the report. Sodium [Moles/Vol] 139 mmol/L Normal 135-145 [facility] Comment on above: Performed By: #### A PTT, TSH5, HEMDF, LDH3, DDI2, BMP3M, ESR, FOLT3, URIC3, FEIBC, FERR3, B12, FT4M #### [place] [address] [place] #### HVAAO, ANA3, HEPAN, B2GPG, B2GPM, B2GPA #### [facility] [address] [place], [place] #### LUPUS #### The performing lab is in the report. Beta-2 Glycoprotein I IgAon 11-05-2021 Beta-2 Glycoprotein I IgA < 2.0 Normal [facility] Comment on above: Result Comment: Inte rpretive Information: Results equal to or greater than 20 U/mL = POSITIVE Results less than 20 U/mL = NEGATIVE Performed By: #### A PTT, TSH5, HEMDF, LDH3, DDI2, BMP3M, ESR, FOLT3, URIC3, FEIBC, FERR3, B12, FT4M ####[address] [place] [address]#### HVAAO, ANA3, HEPAN, B2GPG, B2GPM, B2GPA ####[address] #### LUPUS ####The performing lab is in the report. Beta-2 Glycoprotein I IgGon 11-05-2021 Beta-2 Glycoprotein I IgG < 1.4 Normal [facility] Comment on above: Result Comment: Inte rpretive Information: Results equal to or greater than 20 U/mL = POSITIVE Results less than 20 U/mL = NEGATIVE Performed By: #### A PTT, TSH5, HEMDF, LDH3, DDI2, BMP3M, ESR, FOLT3, URIC3, FEIBC, FERR3, B12, FT4M ####[address] [place] [address]#### HVAAO, ANA3, HEPAN, B2GPG, B2GPM, B2GPA ####[address] #### LUPUS ####The performing lab is in the report. Beta-2 Glycoprotein I IgMon 11-05-2021 Beta-2 Glycoprotein I IgM 2.4 U/mL Normal [facility] Comment on above: Result Comment: Inte rpretive Information: Results equal to or greater than 20 U/mL = POSITIVE Results less than 20 U/mL = NEGATIVE Performed By: #### A PTT, TSH5, HEMDF, LDH3, DDI2, BMP3M, ESR, FOLT3, URIC3, FEIBC, FERR3, B12, FT4M ####[facility] [address] [place] [address]#### HVAAO, ANA3, HEPAN, B2GPG, B2GPM, B2GPA ####[facility] [id number] [place], [place] #### LUPUS ####The performing lab is in the report. D-Dimer, Innovanceon 022 D-Dimer, Innovance 2.22 mg/L High <0.19-0.50 [facility] Comment on above: Result Comment: Inno williamson D-Dimer values of <0.50 mg/L FEU can be used in combination with a pre-test probability model (e.g. Well's) to exclude pulmonary embolism (PE) disease, as well as an aid in the diagnosis of deep vein thrombosis (DVT). Performed By: #### A PTT, TSH5, HEMDF, LDH3, DDI2, BMP3M, ESR, FOLT3, URIC3, FEIBC, FERR3, B12, FT4M ####[facility] [id number] [facility] [address] [place] [address]#### HVAAO, ANA3, HEPAN, B2GPG, B2GPM, B2GPA ####[facility] [id number] [place], [place] #### LUPUS ####The performing lab is in the report. Ferritinon 11-05-2021 Ferritin [Mass/Vol] 76 ng/mL Normal 11-264 [facility] Comment on above: Performed By: #### A PTT, TSH5, HEMDF, LDH3, DDI2, BMP3M, ESR, FOLT3, URIC3, FEIBC, FERR3, B12, FT4M #### [facility] [address] [place] [address] #### HVAAO, ANA3, HEPAN, B2GPG, B2GPM, B2GPA #### [facility] [address] [place], [place] #### LUPUS #### The performing lab is in the report. Folateon 11-05-2021 Folate 9.8 ng/mL Normal [facility] Comment on above: Result Comment: >2.8 Performed By: #### A PTT, TSH5, HEMDF, LDH3, DDI2, BMP3M, ESR, FOLT3, URIC3, FEIBC, FERR3, B12, FT4M #### [facility] [address] [place] [address] #### HVAAO, ANA3, HEPAN, B2GPG, B2GPM, B2GPA #### [facility] [address] [place], [place] #### LUPUS #### The performing lab is in the report. Free T4on 11-05-2021 Free T4 [Mass/Vol] 1.21 ng/dL Normal 0.78-2.19 [facility] Comment on above: Performed By: #### A PTT, TSH5, HEMDF, LDH3, DDI2, BMP3M, ESR, FOLT3, URIC3, FEIBC, FERR3, B12, FT4M ####[facility] [facility] [place] [address]#### HVAAO, ANA3, HEPAN, B2GPG, B2GPM, B2GPA ####[facility] [place] [address] #### LUPUS ####The performing lab is in the report. HIV Ag - Abon 11-05-2021 HIV 1,2 Combo Antigen/Antibody Non-Reactive Normal Non-Reactiv e [facility] Comment on above: Result Comment: The specimen was non-reactive for HIV-1 and HIV-2 antibodies and p24 antigen using an FDA-cleared 4th generation HIV test. Based on this non-reactive screen result, further reflexive testing was not indicated and was, therefore, not performed. Performed By: #### A PTT, TSH5, HEMDF, LDH3, DDI2, BMP3M, ESR, FOLT3, URIC3, FEIBC, FERR3, B12, FT4M ####[facility] [facility] [place] [address]#### HVAAO, ANA3, HEPAN, B2GPG, B2GPM, B2GPA ####[facility] [place], [place] #### LUPUS ####The performing lab is in the report. Hemogram w/ Autodiffon 11-05 Abs Baso Cnt 0.1 10*3/uL Normal 0.0-0.2 [facility] Comment on above: Performed By: #### A PTT, TSH5, HEMDF, LDH3, DDI2, BMP3M, ESR, FOLT3, URIC3, FEIBC, FERR3, B12, FT4M #### [facility] [address] [place], [place] #### HVAAO, ANA3, HEPAN, B2GPG, B2GPM, B2GPA #### [address] #### LUPUS #### The performing lab is in the report. Abs Neutrophile Cnt 5.4 10*3/uL Normal 1.8-7.0 [facility] Comment on above: Performed By: #### A PTT, TSH5, HEMDF, LDH3, DDI2, BMP3M, ESR, FOLT3, URIC3, FEIBC, FERR3, B12, FT4M #### [facility] [address] [place], [place] #### HVAAO, ANA3, HEPAN, B2GPG, B2GPM, B2GPA #### [address] #### LUPUS #### The performing lab is in the report. Basophils/100 WBC (Bld) 1.0 % Normal 0.0-2.0 [facility] Comment on above: Performed By: #### A PTT, TSH5, HEMDF, LDH3, DDI2, BMP3M, ESR, FOLT3, URIC3, FEIBC, FERR3, B12, FT4M #### [facility] [address] [place], [place] #### HVAAO, ANA3, HEPAN, B2GPG, B2GPM, B2GPA #### [address] #### LUPUS #### The performing lab is in the report. Eosinophils (Bld) [#/Vol] 0.4 10*3/uL Normal 0.0-0.5 [facility] Comment on above: Performed By: #### A PTT, TSH5, HEMDF, LDH3, DDI2, BMP3M, ESR, FOLT3, URIC3, FEIBC, FERR3, B12, FT4M #### [address] [place], [place] #### HVAAO, ANA3, HEPAN, B2GPG, B2GPM, B2GPA #### [address] #### LUPUS #### The performing lab is in the report. Eosinophils/100 WBC (Bld) 4.9 % Normal 1.0-6.0 [facility] Comment on above: Performed By: #### A PTT, TSH5, HEMDF, LDH3, DDI2, BMP3M, ESR, FOLT3, URIC3, FEIBC, FERR3, B12, FT4M #### [address] [place], [place] #### HVAAO, ANA3, HEPAN, B2GPG, B2GPM, B2GPA #### [address] #### LUPUS #### The performing lab is in the report. Erythrocyte distribution width (RBC) [Ratio] 15.3 % High 11.5-14.5 [facility] Comment on above: Performed By: #### A PTT, TSH5, HEMDF, LDH3, DDI2, BMP3M, ESR, FOLT3, URIC3, FEIBC, FERR3, B12, FT4M #### [address] [place], [place] #### HVAAO, ANA3, HEPAN, B2GPG, B2GPM, B2GPA #### [address] #### LUPUS #### The performing lab is in the report. Granulocytes/100 WBC (Bld) 60.5 % Normal 40.0-80.0 [facility] Comment on above: Performed By: #### A PTT, TSH5, HEMDF, LDH3, DDI2, BMP3M, ESR, FOLT3, URIC3, FEIBC, FERR3, B12, FT4M #### [facility] [address] [place], [place] #### HVAAO, ANA3, HEPAN, B2GPG, B2GPM, B2GPA #### [address] #### LUPUS #### The performing lab is in the report. Hematocrit (Bld) [Volume fraction] 41.4 % Normal 35.0-47.0 [facility] Comment on above: Performed By: #### A PTT, TSH5, HEMDF, LDH3, DDI2, BMP3M, ESR, FOLT3, URIC3, FEIBC, FERR3, B12, FT4M #### [facility] [address] [place], [place] #### HVAAO, ANA3, HEPAN, B2GPG, B2GPM, B2GPA #### [address] #### LUPUS #### The performing lab is in the report. Hemoglobin (Bld) [Mass/Vol] 13.8 g/dL Normal 11.7-16.0 [facility] Comment on above: Performed By: #### A PTT, TSH5, HEMDF, LDH3, DDI2, BMP3M, ESR, FOLT3, URIC3, FEIBC, FERR3, B12, FT4M #### [address] [place], [place] #### HVAAO, ANA3, HEPAN, B2GPG, B2GPM, B2GPA #### [address] #### LUPUS #### The performing lab is in the report. Lymphocytes (Bld) [#/Vol] 2.3 10*3/uL Normal 1.0-4.3 [facility] Comment on above: Performed By: #### A PTT, TSH5, HEMDF, LDH3, DDI2, BMP3M, ESR, FOLT3, URIC3, FEIBC, FERR3, B12, FT4M #### [facility] [address] [place] [address] #### HVAAO, ANA3, HEPAN, B2GPG, B2GPM, B2GPA #### [address] #### LUPUS #### The performing lab is in the report. Lymphocytes/100 WBC (Bld) 25.8 % Normal 20.0-40.0 [facility] Comment on above: Performed By: #### A PTT, TSH5, HEMDF, LDH3, DDI2, BMP3M, ESR, FOLT3, URIC3, FEIBC, FERR3, B12, FT4M #### [facility] [address] [place] [address] #### HVAAO, ANA3, HEPAN, B2GPG, B2GPM, B2GPA #### [address] #### LUPUS #### The performing lab is in the report. MCH (RBC) [Entitic mass] 30.6 pg Normal 26.0-34.0 [facility] Comment on above: Performed By: #### A PTT, TSH5, HEMDF, LDH3, DDI2, BMP3M, ESR, FOLT3, URIC3, FEIBC, FERR3, B12, FT4M #### [facility] [address] [place] [address] #### HVAAO, ANA3, HEPAN, B2GPG, B2GPM, B2GPA #### [address] #### LUPUS #### The performing lab is in the report. MCHC 33.4 % Normal 32.0-36.0 [facility] Comment on above: Performed By: #### A PTT, TSH5, HEMDF, LDH3, DDI2, BMP3M, ESR, FOLT3, URIC3, FEIBC, FERR3, B12, FT4M #### [facility] [address] [place] [address] #### HVAAO, ANA3, HEPAN, B2GPG, B2GPM, B2GPA #### [address] #### LUPUS #### The performing lab is in the report. MCV (RBC) [Entitic vol] 91.7 fL Normal 79.0-98.0 [facility] Comment on above: Performed By: #### A PTT, TSH5, HEMDF, LDH3, DDI2, BMP3M, ESR, FOLT3, URIC3, FEIBC, FERR3, B12, FT4M #### [place] [address] [place] [address] #### HVAAO, ANA3, HEPAN, B2GPG, B2GPM, B2GPA #### [address] #### LUPUS #### The performing lab is in the report. Monocytes (Bld) [#/Vol] 0.7 10*3/uL Normal 0.0-0.8 [facility] Comment on above: Performed By: #### A PTT, TSH5, HEMDF, LDH3, DDI2, BMP3M, ESR, FOLT3, URIC3, FEIBC, FERR3, B12, FT4M #### [place] [address] [place] #### HVAAO, ANA3, HEPAN, B2GPG, B2GPM, B2GPA #### [address] #### LUPUS #### The performing lab is in the report. Monocytes/100 WBC (Bld) 7.8 % Normal 2.0-10.0 [facility] Comment on above: Performed By: #### A PTT, TSH5, HEMDF, LDH3, DDI2, BMP3M, ESR, FOLT3, URIC3, FEIBC, FERR3, B12, FT4M #### [place] [address] [place] [address] #### HVAAO, ANA3, HEPAN, B2GPG, B2GPM, B2GPA #### [address] #### LUPUS #### The performing lab is in the report. Platelet mean volume (Bld) [Entitic vol] 9.0 fL Normal 7.4-10.4 [facility] Comment on above: Performed By: #### A PTT, TSH5, HEMDF, LDH3, DDI2, BMP3M, ESR, FOLT3, URIC3, FEIBC, FERR3, B12, FT4M #### [address] [place] #### HVAAO, ANA3, HEPAN, B2GPG, B2GPM, B2GPA #### [address] #### LUPUS #### The performing lab is in the report. Platelets (Bld) [#/Vol] 221 10*3/uL Normal 140-440 [facility] Comment on above: Performed By: #### A PTT, TSH5, HEMDF, LDH3, DDI2, BMP3M, ESR, FOLT3, URIC3, FEIBC, FERR3, B12, FT4M #### [address] [place] #### HVAAO, ANA3, HEPAN, B2GPG, B2GPM, B2GPA #### [address] #### LUPUS #### The performing lab is in the report. RBC (Bld) [#/Vol] 4.51 10*6/uL Normal 3.80-5.20 [facility] Comment on above: Performed By: #### A PTT, TSH5, HEMDF, LDH3, DDI2, BMP3M, ESR, FOLT3, URIC3, FEIBC, FERR3, B12, FT4M #### [facility] [address] [place] [address] #### HVAAO, ANA3, HEPAN, B2GPG, B2GPM, B2GPA #### [address] #### LUPUS #### The performing lab is in the report. WBC (Bld) [#/Vol] 8.9 10*3/uL Normal 3.6-10.7 [facility] Comment on above: Performed By: #### A PTT, TSH5, HEMDF, LDH3, DDI2, BMP3M, ESR, FOLT3, URIC3, FEIBC, FERR3, B12, FT4M #### [facility] [address] [place] [address] #### HVAAO, ANA3, HEPAN, B2GPG, B2GPM, B2GPA #### [address] #### LUPUS #### The performing lab is in the report. Iron AND TIBCon 11-05-2021 Saturation 20 % Normal 15-50 [facility] Comment on above: Performed By: #### A PTT, TSH5, HEMDF, LDH3, DDI2, BMP3M, ESR, FOLT3, URIC3, FEIBC, FERR3, B12, FT4M ####[facility] [facility] [place] [address]#### HVAAO, ANA3, HEPAN, B2GPG, B2GPM, B2GPA ####[address] #### LUPUS ####The performing lab is in the report. Total Iron Binding Cap. 296 ug/dL Normal 261-497 [facility] Comment on above: Performed By: #### A PTT, TSH5, HEMDF, LDH3, DDI2, BMP3M, ESR, FOLT3, URIC3, FEIBC, FERR3, B12, FT4M ####[address] [place] [address]#### HVAAO, ANA3, HEPAN, B2GPG, B2GPM, B2GPA ####[place] [address] [place], [place] #### LUPUS ####The performing lab is in the report. Iron, Total 59 ug/dL Normal 37-170 [facility] Comment on above: Performed By: #### A PTT, TSH5, HEMDF, LDH3, DDI2, BMP3M, ESR, FOLT3, URIC3, FEIBC, FERR3, B12, FT4M ####[address] [place] [address]#### HVAAO, ANA3, HEPAN, B2GPG, B2GPM, B2GPA ####[address] #### LUPUS ####The performing lab is in the report. LDHon 11-05-2021 LDH 259 U/L High 120-246 [facility] Comment on above: Performed By: #### A PTT, TSH5, HEMDF, LDH3, DDI2, BMP3M, ESR, FOLT3, URIC3, FEIBC, FERR3, B12, FT4M #### [address] [place] [address] #### HVAAO, ANA3, HEPAN, B2GPG, B2GPM, B2GPA #### [address] #### LUPUS #### The performing lab is in the report. Sed Rateon 11-05-2021 Sed Rate 47 mm/h High 0-20 [facility] Comment on above: Performed By: #### A PTT, TSH5, HEMDF, LDH3, DDI2, BMP3M, ESR, FOLT3, URIC3, FEIBC, FERR3, B12, FT4M #### [address] [place] [address] #### HVAAO, ANA3, HEPAN, B2GPG, B2GPM, B2GPA #### [address] #### LUPUS #### The performing lab is in the report. Thyroid Stim. Hormoneon 10-23 Thyroid Stim. Hormone 3.596 u[IU]/mL Normal 0.465-4.68 0 [facility] Comment on above: Performed By: #### A PTT, TSH5, HEMDF, LDH3, DDI2, BMP3M, ESR, FOLT3, URIC3, FEIBC, FERR3, B12, FT4M #### [address] [place] [address] #### HVAAO, ANA3, HEPAN, B2GPG, B2GPM, B2GPA #### [address] #### LUPUS #### The performing lab is in the report. Uric Acidon 11-05-2021 Urate [Mass/Vol] 7.3 mg/dL Normal 3.5-8.5 [facility] Comment on above: Performed By: #### A PTT, TSH5, HEMDF, LDH3, DDI2, BMP3M, ESR, FOLT3, URIC3, FEIBC, FERR3, B12, FT4M #### [address] [place] [address] #### HVAAO, ANA3, HEPAN, B2GPG, B2GPM, B2GPA #### [address] #### LUPUS #### The performing lab is in the report. Vitamin B12on 11-05-2021 Cobalamin (Vitamin B12) [Mass/Vol] 228 pg/mL Low 239-931 [facility] Comment on above: Performed By: #### A PTT, TSH5, HEMDF, LDH3, DDI2, BMP3M, ESR, FOLT3, URIC3, FEIBC, FERR3, B12, FT4M ####[address] [place] [address]#### HVAAO, ANA3, HEPAN, B2GPG, B2GPM, B2GPA ####[facility] [place], [place] #### LUPUS ####The performing lab is in the report. APTTon 11-04-2021 aPTT Coag (Bld) [Time] 64.3 s High 20.0-30.5 [facility] Comment on above: Result Comment: NOTE : The therapeutic time for Heparin anticoagulation, based on Xa activity inhibition, is an APTT of 46-80 seconds. Performed By: #### A PTT #### [facility] [address] [place] [address] aPTT Coag (Bld) [Time] 61.1 s High 20.0-30.5 [facility] Comment on above: Result Comment: NOTE : The therapeutic time for Heparin anticoagulation, based on Xa activity inhibition, is an APTT of 46-80 seconds. Performed By: #### A PTT, TSH5, HEMDF, LDH3, DDI2, BMP3M, ESR, FOLT3, URIC3, FEIBC, FERR3, B12, FT4M #### [facility] [address] [place] [address] #### HVAAO, ANA3, HEPAN, B2GPG, B2GPM, B2GPA #### [address] #### LUPUS #### The performing lab is in the report. aPTT Coag (Bld) [Time] 132.8 s Critically high 20.0-30. 5 [facility] Comment on above: Result Comment: NOTE : The therapeutic time for Heparin anticoagulation, based on Xa activity inhibition, is an APTT of 46-80 seconds. Performed By: #### A PTT, TSH5, HEMDF, LDH3, DDI2, BMP3M, ESR, FOLT3, URIC3, FEIBC, FERR3, B12, FT4M #### [facility] [address] [place] [address] #### HVAAO, ANA3, HEPAN, B2GPG, B2GPM, B2GPA #### [address] [address] #### LUPUS #### The performing lab is in the report. aPTT Coag (Bld) [Time] 34.5 s High 20.0-30.5 [facility] Comment on above: Result Comment: NOTE : The therapeutic time for Heparin anticoagulation, based on Xa activity inhibition, is an APTT of 46-80 seconds. Performed By: #### A PTT, TSH5, HEMDF, LDH3, DDI2, BMP3M, ESR, FOLT3, URIC3, FEIBC, FERR3, B12, FT4M #### [address] [place] [address] #### HVAAO, ANA3, HEPAN, B2GPG, B2GPM, B2GPA #### [address] #### LUPUS #### The performing lab is in the report. Basic Metabolic Panelon 10-23 Calcium [Mass/Vol] 9.1 mg/dL Normal 8.4-10.4 [facility] Comment on above: Performed By: #### A PTT, TSH5, HEMDF, LDH3, DDI2, BMP3M, ESR, FOLT3, URIC3, FEIBC, FERR3, B12, FT4M #### [address] [place] [address] #### HVAAO, ANA3, HEPAN, B2GPG, B2GPM, B2GPA #### [address] #### LUPUS #### The performing lab is in the report. Glucose [Mass/Vol] 123 mg/dL High 70-100 [facility] Comment on above: Performed By: #### A PTT, TSH5, HEMDF, LDH3, DDI2, BMP3M, ESR, FOLT3, URIC3, FEIBC, FERR3, B12, FT4M #### [address] [place] [address] #### HVAAO, ANA3, HEPAN, B2GPG, B2GPM, B2GPA #### [address] #### LUPUS #### The performing lab is in the report. Urea nitrogen [Mass/Vol] 16 mg/dL Normal 9-20 [facility] Comment on above: Performed By: #### A PTT, TSH5, HEMDF, LDH3, DDI2, BMP3M, ESR, FOLT3, URIC3, FEIBC, FERR3, B12, FT4M #### [facility] [address] [place] [address] #### HVAAO, ANA3, HEPAN, B2GPG, B2GPM, B2GPA #### [address] #### LUPUS #### The performing lab is in the report. Anion gap [Moles/Vol] 5 mmol/L Normal 3-13 [facility] Comment on above: Performed By: #### A PTT, TSH5, HEMDF, LDH3, DDI2, BMP3M, ESR, FOLT3, URIC3, FEIBC, FERR3, B12, FT4M #### [place] [address] [place] [address] #### HVAAO, ANA3, HEPAN, B2GPG, B2GPM, B2GPA #### [address] #### LUPUS #### The performing lab is in the report. CO2 [Moles/Vol] 25 mmol/L Normal 22-30 [facility] Comment on above: Performed By: #### A PTT, TSH5, HEMDF, LDH3, DDI2, BMP3M, ESR, FOLT3, URIC3, FEIBC, FERR3, B12, FT4M #### [place] [address] [place] [address] #### HVAAO, ANA3, HEPAN, B2GPG, B2GPM, B2GPA #### [address] #### LUPUS #### The performing lab is in the report. Creatinine [Mass/Vol] 0.94 mg/dL Normal 0.52-1.25 [facility] Comment on above: Performed By: #### A PTT, TSH5, HEMDF, LDH3, DDI2, BMP3M, ESR, FOLT3, URIC3, FEIBC, FERR3, B12, FT4M #### [facility] [address] [place] [address] #### HVAAO, ANA3, HEPAN, B2GPG, B2GPM, B2GPA #### [address] [address] #### LUPUS #### The performing lab is in the report. GFR/1.73 sq M.predicted among blacks MDRD (S/P/Bld) [Vol rate/Area] 67.1 mL/min/{1.73_m2} Normal >60 [facility] Comment on above: Performed By: #### A PTT, TSH5, HEMDF, LDH3, DDI2, BMP3M, ESR, FOLT3, URIC3, FEIBC, FERR3, B12, FT4M #### [facility] [address] [place] [address] #### HVAAO, ANA3, HEPAN, B2GPG, B2GPM, B2GPA #### [address] [address] #### LUPUS #### The performing lab is in the report. GFR/1.73 sq M.predicted among non-blacks MDRD (S/P/Bld) [Vol rate/Area] 57.9 mL/min/{1.73_m2} Abnormal >60 [facility] Comment on above: Result Comment: KDIG O [...] FEIBC, FERR3, B12, FT4M #### [facility] [address] [place] [address] #### HVAAO, ANA3, HEPAN, B2GPG, B2GPM, B2GPA #### [address] #### LUPUS #### The performing lab is in the report. Chloride [Moles/Vol] 106 mmol/L Normal 98-107 [facility] Comment on above: Performed By: #### A PTT, TSH5, HEMDF, LDH3, DDI2, BMP3M, ESR, FOLT3, URIC3, FEIBC, FERR3, B12, FT4M #### [address] [place] [address] #### HVAAO, ANA3, HEPAN, B2GPG, B2GPM, B2GPA #### [address] #### LUPUS #### The performing lab is in the report. Potassium [Moles/Vol] 3.6 mmol/L Normal 3.5-5.1 [facility] Comment on above: Performed By: #### A PTT, TSH5, HEMDF, LDH3, DDI2, BMP3M, ESR, FOLT3, URIC3, FEIBC, FERR3, B12, FT4M #### [address] [place] [address] #### HVAAO, ANA3, HEPAN, B2GPG, B2GPM, B2GPA #### [address] #### LUPUS #### The performing lab is in the report. Sodium [Moles/Vol] 135 mmol/L Normal 135-145 [facility] Comment on above: Performed By: #### A PTT, TSH5, HEMDF, LDH3, DDI2, BMP3M, ESR, FOLT3, URIC3, FEIBC, FERR3, B12, FT4M #### [facility] [address] [place] [address] #### HVAAO, ANA3, HEPAN, B2GPG, B2GPM, B2GPA #### [facility] [address] [place] [address] #### LUPUS #### The performing lab is in the report. Echo Complete w/wo Contrasto n 11-04-2021 Echo Complete w/wo Contrast Patient Name: CHAY TEAGUE Ultrasound ACCESSION EXAM DATE/TIME PROCEDURE ORDERING PROVIDER [id number] 11/04/2021 11:49 EST Echo Complete w/wo MD BERNARDINO, CAIN Contrast Reason For Exam (Echo Complete w/wo Contrast) DVT, chest pain Report TRANSTHORACIC ECHOCARDIOGRAM PATIENT: Chay Teague STUDY DATE: 11/04/2021 : 1945 AGE: 76 HT/WT: 160 cm (63 88.5 kg in) (194.6 lb) GENDER: F BP: 142 / 87 LOCATION: [facility] PATIENT [facility] STATUS: *ORDERING PHYSICIAN: * Cain Lebron *READING PHYSICIAN: * Jayden Muñoz *CASING WRINGER OPERATOR: * Iliana Real MD RDCS,AE, PE, RVT [...] volume (SV) (more content not included)... Normal [facility] Hemogram w/ Autodiffon 11-04 Abs Baso Cnt 0.1 10*3/uL Normal 0.0-0.2 [facility] Comment on above: Performed By: #### A PTT, TSH5, HEMDF, LDH3, DDI2, BMP3M, ESR, FOLT3, URIC3, FEIBC, FERR3, B12, FT4M #### [facility] [address] [place] [address] #### HVAAO, ANA3, HEPAN, B2GPG, B2GPM, B2GPA #### [facility] [address] [place] [address] #### LUPUS #### The performing lab is in the report. Abs Neutrophile Cnt 7.2 10*3/uL High 1.8-7.0 [facility] Comment on above: Performed By: #### A PTT, TSH5, HEMDF, LDH3, DDI2, BMP3M, ESR, FOLT3, URIC3, FEIBC, FERR3, B12, FT4M #### [place] [address] [place] [address] #### HVAAO, ANA3, HEPAN, B2GPG, B2GPM, B2GPA #### [address] #### LUPUS #### The performing lab is in the report. Basophils/100 WBC (Bld) 0.8 % Normal 0.0-2.0 [facility] Comment on above: Performed By: #### A PTT, TSH5, HEMDF, LDH3, DDI2, BMP3M, ESR, FOLT3, URIC3, FEIBC, FERR3, B12, FT4M #### [address] [facility] [id number] #### HVAAO, ANA3, HEPAN, B2GPG, B2GPM, B2GPA #### [address] #### LUPUS #### The performing lab is in the report. Eosinophils (Bld) [#/Vol] 0.5 10*3/uL Normal 0.0-0.5 [facility] Comment on above: Performed By: #### A PTT, TSH5, HEMDF, LDH3, DDI2, BMP3M, ESR, FOLT3, URIC3, FEIBC, FERR3, B12, FT4M #### [address] [place] [address] #### HVAAO, ANA3, HEPAN, B2GPG, B2GPM, B2GPA #### [address] #### LUPUS #### The performing lab is in the report. Eosinophils/100 WBC (Bld) 4.7 % Normal 1.0-6.0 [facility] Comment on above: Performed By: #### A PTT, TSH5, HEMDF, LDH3, DDI2, BMP3M, ESR, FOLT3, URIC3, FEIBC, FERR3, B12, FT4M #### [place] [address] [place] #### HVAAO, ANA3, HEPAN, B2GPG, B2GPM, B2GPA #### [address] #### LUPUS #### The performing lab is in the report. Erythrocyte distribution width (RBC) [Ratio] 15.0 % High 11.5-14.5 [facility] Comment on above: Performed By: #### A PTT, TSH5, HEMDF, LDH3, DDI2, BMP3M, ESR, FOLT3, URIC3, FEIBC, FERR3, B12, FT4M #### [address] [facility] [place] #### HVAAO, ANA3, HEPAN, B2GPG, B2GPM, B2GPA #### [address] #### LUPUS #### The performing lab is in the report. Granulocytes/100 WBC (Bld) 64.0 % Normal 40.0-80.0 [facility] Comment on above: Performed By: #### A PTT, TSH5, HEMDF, LDH3, DDI2, BMP3M, ESR, FOLT3, URIC3, FEIBC, FERR3, B12, FT4M #### [address] [place] #### HVAAO, ANA3, HEPAN, B2GPG, B2GPM, B2GPA #### [address] #### LUPUS #### The performing lab is in the report. Hematocrit (Bld) [Volume fraction] 40.2 % Normal 35.0-47.0 [facility] Comment on above: Performed By: #### A PTT, TSH5, HEMDF, LDH3, DDI2, BMP3M, ESR, FOLT3, URIC3, FEIBC, FERR3, B12, FT4M #### [address] [place] [address] #### HVAAO, ANA3, HEPAN, B2GPG, B2GPM, B2GPA #### [address] #### LUPUS #### The performing lab is in the report. Hemoglobin (Bld) [Mass/Vol] 13.2 g/dL Normal 11.7-16.0 [facility] Comment on above: Performed By: #### A PTT, TSH5, HEMDF, LDH3, DDI2, BMP3M, ESR, FOLT3, URIC3, FEIBC, FERR3, B12, FT4M #### [address] [place] [address] #### HVAAO, ANA3, HEPAN, B2GPG, B2GPM, B2GPA #### [address] #### LUPUS #### The performing lab is in the report. Lymphocytes (Bld) [#/Vol] 2.5 10*3/uL Normal 1.0-4.3 [facility] Comment on above: Performed By: #### A PTT, TSH5, HEMDF, LDH3, DDI2, BMP3M, ESR, FOLT3, URIC3, FEIBC, FERR3, B12, FT4M #### [address] [place] [address] #### HVAAO, ANA3, HEPAN, B2GPG, B2GPM, B2GPA #### [address] #### LUPUS #### The performing lab is in the report. Lymphocytes/100 WBC (Bld) 22.3 % Normal 20.0-40.0 [facility] Comment on above: Performed By: #### A PTT, TSH5, HEMDF, LDH3, DDI2, BMP3M, ESR, FOLT3, URIC3, FEIBC, FERR3, B12, FT4M #### [address] [place] [address] #### HVAAO, ANA3, HEPAN, B2GPG, B2GPM, B2GPA #### [address] #### LUPUS #### The performing lab is in the report. MCH (RBC) [Entitic mass] 30.3 pg Normal 26.0-34.0 [facility] Comment on above: Performed By: #### A PTT, TSH5, HEMDF, LDH3, DDI2, BMP3M, ESR, FOLT3, URIC3, FEIBC, FERR3, B12, FT4M #### [place] [address] [place], [place] #### HVAAO, ANA3, HEPAN, B2GPG, B2GPM, B2GPA #### [address] #### LUPUS #### The performing lab is in the report. MCHC 32.9 % Normal 32.0-36.0 [facility] Comment on above: Performed By: #### A PTT, TSH5, HEMDF, LDH3, DDI2, BMP3M, ESR, FOLT3, URIC3, FEIBC, FERR3, B12, FT4M #### [address] [place] #### HVAAO, ANA3, HEPAN, B2GPG, B2GPM, B2GPA #### [address] #### LUPUS #### The performing lab is in the report. MCV (RBC) [Entitic vol] 92.0 fL Normal 79.0-98.0 [facility] Comment on above: Performed By: #### A PTT, TSH5, HEMDF, LDH3, DDI2, BMP3M, ESR, FOLT3, URIC3, FEIBC, FERR3, B12, FT4M #### [place] [address] [facility] [place] [facility] #### HVAAO, ANA3, HEPAN, B2GPG, B2GPM, B2GPA #### [address] #### LUPUS #### The performing lab is in the report. Monocytes (Bld) [#/Vol] 0.9 10*3/uL High 0.0-0.8 [facility] Comment on above: Performed By: #### A PTT, TSH5, HEMDF, LDH3, DDI2, BMP3M, ESR, FOLT3, URIC3, FEIBC, FERR3, B12, FT4M #### [facility] [address] [place] [address] #### HVAAO, ANA3, HEPAN, B2GPG, B2GPM, B2GPA #### [address] #### LUPUS #### The performing lab is in the report. Monocytes/100 WBC (Bld) 8.2 % Normal 2.0-10.0 [facility] Comment on above: Performed By: #### A PTT, TSH5, HEMDF, LDH3, DDI2, BMP3M, ESR, FOLT3, URIC3, FEIBC, FERR3, B12, FT4M #### [facility] [address] [place] [address] #### HVAAO, ANA3, HEPAN, B2GPG, B2GPM, B2GPA #### [address] #### LUPUS #### The performing lab is in the report. Platelet mean volume (Bld) [Entitic vol] 9.0 fL Normal 7.4-10.4 [facility] Comment on above: Performed By: #### A PTT, TSH5, HEMDF, LDH3, DDI2, BMP3M, ESR, FOLT3, URIC3, FEIBC, FERR3, B12, FT4M #### [facility] [address] [place] [address] #### HVAAO, ANA3, HEPAN, B2GPG, B2GPM, B2GPA #### [address] #### LUPUS #### The performing lab is in the report. Platelets (Bld) [#/Vol] 208 10*3/uL Normal 140-440 [facility] Comment on above: Performed By: #### A PTT, TSH5, HEMDF, LDH3, DDI2, BMP3M, ESR, FOLT3, URIC3, FEIBC, FERR3, B12, FT4M #### [facility] [address] [place] [address] #### HVAAO, ANA3, HEPAN, B2GPG, B2GPM, B2GPA #### [address] #### LUPUS #### The performing lab is in the report. RBC (Bld) [#/Vol] 4.37 10*6/uL Normal 3.80-5.20 [facility] Comment on above: Performed By: #### A PTT, TSH5, HEMDF, LDH3, DDI2, BMP3M, ESR, FOLT3, URIC3, FEIBC, FERR3, B12, FT4M #### [facility] [address] [place] #### HVAAO, ANA3, HEPAN, B2GPG, B2GPM, B2GPA #### [address] #### LUPUS #### The performing lab is in the report. WBC (Bld) [#/Vol] 11.2 10*3/uL High 3.6-10.7 [facility] Comment on above: Performed By: #### A PTT, TSH5, HEMDF, LDH3, DDI2, BMP3M, ESR, FOLT3, URIC3, FEIBC, FERR3, B12, FT4M #### [facility] [address] [place] [address] #### HVAAO, ANA3, HEPAN, B2GPG, B2GPM, B2GPA #### [address] #### LUPUS #### The performing lab is in the report. APTTon 11-03-2021 aPTT Coag (Bld) [Time] 42.0 s High 20.0-30.5 [facility] Comment on above: Result Comment: NOTE : The therapeutic time for Heparin anticoagulation, based on Xa activity inhibition, is an APTT of 46-80 seconds. Performed By: #### A PTT, TSH5, HEMDF, LDH3, DDI2, BMP3M, ESR, FOLT3, URIC3, FEIBC, FERR3, B12, FT4M #### [address] [place] [address] #### HVAAO, ANA3, HEPAN, B2GPG, B2GPM, B2GPA #### [address] [id number] #### LUPUS #### The performing lab is in the report. aPTT Coag (Bld) [Time] 51.5 s High 20.0-30.5 [facility] Comment on above: Result Comment: NOTE : The therapeutic time for Heparin anticoagulation, based on Xa activity inhibition, is an APTT of 46-80 seconds. Performed By: #### A PTT, TSH5, HEMDF, LDH3, DDI2, BMP3M, ESR, FOLT3, URIC3, FEIBC, FERR3, B12, FT4M #### [address] [place] [address] #### HVAAO, ANA3, HEPAN, B2GPG, B2GPM, B2GPA #### [address] [address] #### LUPUS #### The performing lab is in the report. aPTT Coag (Bld) [Time] 106.9 s High 20.0-30.5 [facility] Comment on above: Result Comment: NOTE : The therapeutic time for Heparin anticoagulation, based on Xa activity inhibition, is an APTT of 46-80 seconds. Performed By: #### A PTT, TSH5, HEMDF, LDH3, DDI2, BMP3M, ESR, FOLT3, URIC3, FEIBC, FERR3, B12, FT4M #### [place] [address] [place] [address] #### HVAAO, ANA3, HEPAN, B2GPG, B2GPM, B2GPA #### [facility] [address] [place] [address] #### LUPUS #### The performing lab is in the report. CT Head or Brain w/o Contras ton 11-03-2021 CT Head or Brain w/o Contrast Patient Name: CHAY TEAGUE Computed Tomography ACCESSION EXAM DATE/TIME PROCEDURE ORDERING PROVIDER [id number] 11/03/2021 15:[address] Head or Brain w/o MD CANDY, FCO Contrast CPT code 06425 Reason For Exam (CT Head or Brain [...] and Time: 11/03/2021 3:31 Normal [facility] Comp Panel with Mg Reflexon 11-03-2021 Calcium [Mass/Vol] 8.9 mg/dL Normal 8.4-10.4 [facility] Comment on above: Performed By: #### A PTT, TSH5, HEMDF, LDH3, DDI2, BMP3M, ESR, FOLT3, URIC3, FEIBC, FERR3, B12, FT4M #### [place] [address] [place] [address] #### HVAAO, ANA3, HEPAN, B2GPG, B2GPM, B2GPA #### [address] #### LUPUS #### The performing lab is in the report. ALP [Catalytic activity/Vol] 113 U/L Normal 38-126 [facility] Comment on above: Performed By: #### A PTT, TSH5, HEMDF, LDH3, DDI2, BMP3M, ESR, FOLT3, URIC3, FEIBC, FERR3, B12, FT4M #### [place] [address] [facility] [place] #### HVAAO, ANA3, HEPAN, B2GPG, B2GPM, B2GPA #### [address] #### LUPUS #### The performing lab is in the report. ALT [Catalytic activity/Vol] 15 U/L Normal 0-34 [facility] Comment on above: Result Comment: The ALT test is performed by an updated assay method. Please note that the reference intervals have been changed and are now sex specific. Performed By: #### A PTT, TSH5, HEMDF, LDH3, DDI2, BMP3M, ESR, FOLT3, URIC3, FEIBC, FERR3, B12, FT4M #### [place] [address] [place] [address] #### HVAAO, ANA3, HEPAN, B2GPG, B2GPM, B2GPA #### [address] #### LUPUS #### The performing lab is in the report. Anion gap [Moles/Vol] 9 mmol/L Normal 3-13 [facility] Comment on above: Performed By: #### A PTT, TSH5, HEMDF, LDH3, DDI2, BMP3M, ESR, FOLT3, URIC3, FEIBC, FERR3, B12, FT4M #### [place] [address] [place] [address] #### HVAAO, ANA3, HEPAN, B2GPG, B2GPM, B2GPA #### [address] #### LUPUS #### The performing lab is in the report. AST [Catalytic activity/Vol] 26 U/L Normal 15-46 [facility] Comment on above: Performed By: #### A PTT, TSH5, HEMDF, LDH3, DDI2, BMP3M, ESR, FOLT3, URIC3, FEIBC, FERR3, B12, FT4M #### [place] [address] [place] #### HVAAO, ANA3, HEPAN, B2GPG, B2GPM, B2GPA #### [address] #### LUPUS #### The performing lab is in the report. Bilirubin [Mass/Vol] 0.8 mg/dL Normal 0.2-1.3 [facility] Comment on above: Performed By: #### A PTT, TSH5, HEMDF, LDH3, DDI2, BMP3M, ESR, FOLT3, URIC3, FEIBC, FERR3, B12, FT4M #### [place] [address] [place] #### HVAAO, ANA3, HEPAN, B2GPG, B2GPM, B2GPA #### [address] #### LUPUS #### The performing lab is in the report. CO2 [Moles/Vol] 23 mmol/L Normal 22-30 [facility] Comment on above: Performed By: #### A PTT, TSH5, HEMDF, LDH3, DDI2, BMP3M, ESR, FOLT3, URIC3, FEIBC, FERR3, B12, FT4M #### [place] [address] [place] #### HVAAO, ANA3, HEPAN, B2GPG, B2GPM, B2GPA #### [address] #### LUPUS #### The performing lab is in the report. Glucose [Mass/Vol] 112 mg/dL High 70-100 [facility] Comment on above: Performed By: #### A PTT, TSH5, HEMDF, LDH3, DDI2, BMP3M, ESR, FOLT3, URIC3, FEIBC, FERR3, B12, FT4M #### [facility] [address] [facility] [place] #### HVAAO, ANA3, HEPAN, B2GPG, B2GPM, B2GPA #### [address] #### LUPUS #### The performing lab is in the report. Protein [Mass/Vol] 7.2 g/dL Normal 6.3-8.2 [facility] Comment on above: Performed By: #### A PTT, TSH5, HEMDF, LDH3, DDI2, BMP3M, ESR, FOLT3, URIC3, FEIBC, FERR3, B12, FT4M #### [place] [address] [place] #### HVAAO, ANA3, HEPAN, B2GPG, B2GPM, B2GPA #### [address] #### LUPUS #### The performing lab is in the report. Urea nitrogen [Mass/Vol] 22 mg/dL High 9-20 [facility] Comment on above: Performed By: #### A PTT, TSH5, HEMDF, LDH3, DDI2, BMP3M, ESR, FOLT3, URIC3, FEIBC, FERR3, B12, FT4M #### [place] [address] [place] #### HVAAO, ANA3, HEPAN, B2GPG, B2GPM, B2GPA #### [address] #### LUPUS #### The performing lab is in the report. Creatinine [Mass/Vol] 1.13 mg/dL Normal 0.52-1.25 [facility] Comment on above: Performed By: #### A PTT, TSH5, HEMDF, LDH3, DDI2, BMP3M, ESR, FOLT3, URIC3, FEIBC, FERR3, B12, FT4M #### [facility] [address] [place] [address] #### HVAAO, ANA3, HEPAN, B2GPG, B2GPM, B2GPA #### [address] #### LUPUS #### The performing lab is in the report. GFR/1.73 sq M.predicted among blacks MDRD (S/P/Bld) [Vol rate/Area] 53.7 mL/min/{1.73_m2} Abnormal >60 [facility] Comment on above: Performed By: #### A PTT, TSH5, HEMDF, LDH3, DDI2, BMP3M, ESR, FOLT3, URIC3, FEIBC, FERR3, B12, FT4M #### [facility] [address] [place] [address] #### HVAAO, ANA3, HEPAN, B2GPG, B2GPM, B2GPA #### [address] #### LUPUS #### The performing lab is in the report. GFR/1.73 sq M.predicted among non-blacks MDRD (S/P/Bld) [Vol rate/Area] 46.3 mL/min/{1.73_m2} Abnormal >60 [facility] Comment on above: Result Comment: KDIG O [...] FEIBC, FERR3, B12, FT4M #### [facility] [address] [place] [address] #### HVAAO, ANA3, HEPAN, B2GPG, B2GPM, B2GPA #### [address] [phone] #### LUPUS #### The performing lab is in the report. Albumin [Mass/Vol] 3.8 g/dL Normal 3.5-5.0 [facility] Comment on above: Performed By: #### A PTT, TSH5, HEMDF, LDH3, DDI2, BMP3M, ESR, FOLT3, URIC3, FEIBC, FERR3, B12, FT4M #### [address] [place] [address] #### HVAAO, ANA3, HEPAN, B2GPG, B2GPM, B2GPA #### [address] [address] #### LUPUS #### The performing lab is in the report. Chloride [Moles/Vol] 104 mmol/L Normal 98-107 [facility] Comment on above: Performed By: #### A PTT, TSH5, HEMDF, LDH3, DDI2, BMP3M, ESR, FOLT3, URIC3, FEIBC, FERR3, B12, FT4M #### [address] [place] [address] #### HVAAO, ANA3, HEPAN, B2GPG, B2GPM, B2GPA #### [place] [id number] #### LUPUS #### The performing lab is in the report. Potassium [Moles/Vol] 3.2 mmol/L Low 3.5-5.1 [facility] Comment on above: Performed By: #### A PTT, TSH5, HEMDF, LDH3, DDI2, BMP3M, ESR, FOLT3, URIC3, FEIBC, FERR3, B12, FT4M #### [facility] [address] [place] [address] #### HVAAO, ANA3, HEPAN, B2GPG, B2GPM, B2GPA #### [address] #### LUPUS #### The performing lab is in the report. Sodium [Moles/Vol] 136 mmol/L Normal 135-145 [facility] Comment on above: Performed By: #### A PTT, TSH5, HEMDF, LDH3, DDI2, BMP3M, ESR, FOLT3, URIC3, FEIBC, FERR3, B12, FT4M #### [place] [address] [place] [address] #### HVAAO, ANA3, HEPAN, B2GPG, B2GPM, B2GPA #### [address] #### LUPUS #### The performing lab is in the report. Glucose,Bedsideon 11-03-2021 Glucose [Mass/Vol] 117 mg/dL High 70-100 [facility] Comment on above: Result Comment: Test performed by glucose meter. Results may be 10%-15% lower than serum/plasma values. (CLIA ID [id number]) Performed By: #### A PTT, TSH5, HEMDF, LDH3, DDI2, BMP3M, ESR, FOLT3, URIC3, FEIBC, FERR3, B12, FT4M #### [place] [address] [place] [address] #### HVAAO, ANA3, HEPAN, B2GPG, B2GPM, B2GPA #### [address] #### LUPUS #### The performing lab is in the report. Hemogramon 11-03-2021 Erythrocyte distribution width (RBC) [Ratio] 14.9 % High 11.5-14.5 [facility] Comment on above: Performed By: #### A PTT, TSH5, HEMDF, LDH3, DDI2, BMP3M, ESR, FOLT3, URIC3, FEIBC, FERR3, B12, FT4M #### [facility] [address] [place] [address] #### HVAAO, ANA3, HEPAN, B2GPG, B2GPM, B2GPA #### [address] #### LUPUS #### The performing lab is in the report. Hematocrit (Bld) [Volume fraction] 41.6 % Normal 35.0-47.0 [facility] Comment on above: Performed By: #### A PTT, TSH5, HEMDF, LDH3, DDI2, BMP3M, ESR, FOLT3, URIC3, FEIBC, FERR3, B12, FT4M #### [facility] [address] [place] [address] #### HVAAO, ANA3, HEPAN, B2GPG, B2GPM, B2GPA #### [address] #### LUPUS #### The performing lab is in the report. Hemoglobin (Bld) [Mass/Vol] 14.1 g/dL Normal 11.7-16.0 [facility] Comment on above: Performed By: #### A PTT, TSH5, HEMDF, LDH3, DDI2, BMP3M, ESR, FOLT3, URIC3, FEIBC, FERR3, B12, FT4M #### [address] [place] [address] #### HVAAO, ANA3, HEPAN, B2GPG, B2GPM, B2GPA #### [address] #### LUPUS #### The performing lab is in the report. MCH (RBC) [Entitic mass] 30.7 pg Normal 26.0-34.0 [facility] Comment on above: Performed By: #### A PTT, TSH5, HEMDF, LDH3, DDI2, BMP3M, ESR, FOLT3, URIC3, FEIBC, FERR3, B12, FT4M #### [facility] [address] [place] [address] #### HVAAO, ANA3, HEPAN, B2GPG, B2GPM, B2GPA #### [address] #### LUPUS #### The performing lab is in the report. MCHC 34.0 % Normal 32.0-36.0 [facility] Comment on above: Performed By: #### A PTT, TSH5, HEMDF, LDH3, DDI2, BMP3M, ESR, FOLT3, URIC3, FEIBC, FERR3, B12, FT4M #### [facility] [address] [place] [address] #### HVAAO, ANA3, HEPAN, B2GPG, B2GPM, B2GPA #### [address] #### LUPUS #### The performing lab is in the report. MCV (RBC) [Entitic vol] 90.3 fL Normal 79.0-98.0 [facility] Comment on above: Performed By: #### A PTT, TSH5, HEMDF, LDH3, DDI2, BMP3M, ESR, FOLT3, URIC3, FEIBC, FERR3, B12, FT4M #### [facility] [address] [place] [address] #### HVAAO, ANA3, HEPAN, B2GPG, B2GPM, B2GPA #### [address] #### LUPUS #### The performing lab is in the report. Platelet mean volume (Bld) [Entitic vol] 8.8 fL Normal 7.4-10.4 [facility] Comment on above: Performed By: #### A PTT, TSH5, HEMDF, LDH3, DDI2, BMP3M, ESR, FOLT3, URIC3, FEIBC, FERR3, B12, FT4M #### [facility] [address] [place] [address] #### HVAAO, ANA3, HEPAN, B2GPG, B2GPM, B2GPA #### [address] #### LUPUS #### The performing lab is in the report. Platelets (Bld) [#/Vol] 185 10*3/uL Normal 140-440 [facility] Comment on above: Performed By: #### A PTT, TSH5, HEMDF, LDH3, DDI2, BMP3M, ESR, FOLT3, URIC3, FEIBC, FERR3, B12, FT4M #### [place] [address] [place] [address] #### HVAAO, ANA3, HEPAN, B2GPG, B2GPM, B2GPA #### [address] #### LUPUS #### The performing lab is in the report. RBC (Bld) [#/Vol] 4.61 10*6/uL Normal 3.80-5.20 [facility] Comment on above: Performed By: #### A PTT, TSH5, HEMDF, LDH3, DDI2, BMP3M, ESR, FOLT3, URIC3, FEIBC, FERR3, B12, FT4M #### [place] [address] [place] [address] #### HVAAO, ANA3, HEPAN, B2GPG, B2GPM, B2GPA #### [address] #### LUPUS #### The performing lab is in the report. WBC (Bld) [#/Vol] 9.3 10*3/uL Normal 3.6-10.7 [facility] Comment on above: Performed By: #### A PTT, TSH5, HEMDF, LDH3, DDI2, BMP3M, ESR, FOLT3, URIC3, FEIBC, FERR3, B12, FT4M #### [address] [place] [address] #### HVAAO, ANA3, HEPAN, B2GPG, B2GPM, B2GPA #### [address] #### LUPUS #### The performing lab is in the report. Hemogram w/ Autodiffon 11-03 Abs Baso Cnt 0.0 10*3/uL Normal 0.0-0.2 [facility] Comment on above: Performed By: #### A PTT, TSH5, HEMDF, LDH3, DDI2, BMP3M, ESR, FOLT3, URIC3, FEIBC, FERR3, B12, FT4M #### [address] [place] [address] #### HVAAO, ANA3, HEPAN, B2GPG, B2GPM, B2GPA #### [address] #### LUPUS #### The performing lab is in the report. Abs Neutrophile Cnt 6.5 10*3/uL Normal 1.8-7.0 [facility] Comment on above: Performed By: #### A PTT, TSH5, HEMDF, LDH3, DDI2, BMP3M, ESR, FOLT3, URIC3, FEIBC, FERR3, B12, FT4M #### [address] [place] [id number] #### HVAAO, ANA3, HEPAN, B2GPG, B2GPM, B2GPA #### [address] #### LUPUS #### The performing lab is in the report. Basophils/100 WBC (Bld) 0.4 % Normal 0.0-2.0 [facility] Comment on above: Performed By: #### A PTT, TSH5, HEMDF, LDH3, DDI2, BMP3M, ESR, FOLT3, URIC3, FEIBC, FERR3, B12, FT4M #### [address] [place] [address] #### HVAAO, ANA3, HEPAN, B2GPG, B2GPM, B2GPA #### [address] #### LUPUS #### The performing lab is in the report. Eosinophils (Bld) [#/Vol] 0.4 10*3/uL Normal 0.0-0.5 [facility] Comment on above: Performed By: #### A PTT, TSH5, HEMDF, LDH3, DDI2, BMP3M, ESR, FOLT3, URIC3, FEIBC, FERR3, B12, FT4M #### [address] [place] #### HVAAO, ANA3, HEPAN, B2GPG, B2GPM, B2GPA #### [address] #### LUPUS #### The performing lab is in the report. Eosinophils/100 WBC (Bld) 4.0 % Normal 1.0-6.0 [facility] Comment on above: Performed By: #### A PTT, TSH5, HEMDF, LDH3, DDI2, BMP3M, ESR, FOLT3, URIC3, FEIBC, FERR3, B12, FT4M #### [address] [place] [address] #### HVAAO, ANA3, HEPAN, B2GPG, B2GPM, B2GPA #### [address] #### LUPUS #### The performing lab is in the report. Erythrocyte distribution width (RBC) [Ratio] 14.9 % High 11.5-14.5 [facility] Comment on above: Performed By: #### A PTT, TSH5, HEMDF, LDH3, DDI2, BMP3M, ESR, FOLT3, URIC3, FEIBC, FERR3, B12, FT4M #### [address] [place] [address] #### HVAAO, ANA3, HEPAN, B2GPG, B2GPM, B2GPA #### [address] #### LUPUS #### The performing lab is in the report. Granulocytes/100 WBC (Bld) 65.5 % Normal 40.0-80.0 [facility] Comment on above: Performed By: #### A PTT, TSH5, HEMDF, LDH3, DDI2, BMP3M, ESR, FOLT3, URIC3, FEIBC, FERR3, B12, FT4M #### [address] [place] #### HVAAO, ANA3, HEPAN, B2GPG, B2GPM, B2GPA #### [address] #### LUPUS #### The performing lab is in the report. Hematocrit (Bld) [Volume fraction] 43.4 % Normal 35.0-47.0 [facility] Comment on above: Performed By: #### A PTT, TSH5, HEMDF, LDH3, DDI2, BMP3M, ESR, FOLT3, URIC3, FEIBC, FERR3, B12, FT4M #### [address] [place] #### HVAAO, ANA3, HEPAN, B2GPG, B2GPM, B2GPA #### [address] #### LUPUS #### The performing lab is in the report. Hemoglobin (Bld) [Mass/Vol] 14.6 g/dL Normal 11.7-16.0 [facility] Comment on above: Performed By: #### A PTT, TSH5, HEMDF, LDH3, DDI2, BMP3M, ESR, FOLT3, URIC3, FEIBC, FERR3, B12, FT4M #### [address] [place] [address] #### HVAAO, ANA3, HEPAN, B2GPG, B2GPM, B2GPA #### [address] #### LUPUS #### The performing lab is in the report. Lymphocytes (Bld) [#/Vol] 2.2 10*3/uL Normal 1.0-4.3 [facility] Comment on above: Performed By: #### A PTT, TSH5, HEMDF, LDH3, DDI2, BMP3M, ESR, FOLT3, URIC3, FEIBC, FERR3, B12, FT4M #### [facility] [address] [place] [address] #### HVAAO, ANA3, HEPAN, B2GPG, B2GPM, B2GPA #### [address] #### LUPUS #### The performing lab is in the report. Lymphocytes/100 WBC (Bld) 22.4 % Normal 20.0-40.0 [facility] Comment on above: Performed By: #### A PTT, TSH5, HEMDF, LDH3, DDI2, BMP3M, ESR, FOLT3, URIC3, FEIBC, FERR3, B12, FT4M #### [facility] [address] [place] [address] #### HVAAO, ANA3, HEPAN, B2GPG, B2GPM, B2GPA #### [address] #### LUPUS #### The performing lab is in the report. MCH (RBC) [Entitic mass] 30.8 pg Normal 26.0-34.0 [facility] Comment on above: Performed By: #### A PTT, TSH5, HEMDF, LDH3, DDI2, BMP3M, ESR, FOLT3, URIC3, FEIBC, FERR3, B12, FT4M #### [facility] [address] [place] #### HVAAO, ANA3, HEPAN, B2GPG, B2GPM, B2GPA #### [address] #### LUPUS #### The performing lab is in the report. MCHC 33.6 % Normal 32.0-36.0 [facility] Comment on above: Performed By: #### A PTT, TSH5, HEMDF, LDH3, DDI2, BMP3M, ESR, FOLT3, URIC3, FEIBC, FERR3, B12, FT4M #### [facility] [address] [place] [address] #### HVAAO, ANA3, HEPAN, B2GPG, B2GPM, B2GPA #### [address] #### LUPUS #### The performing lab is in the report. MCV (RBC) [Entitic vol] 91.5 fL Normal 79.0-98.0 [facility] Comment on above: Performed By: #### A PTT, TSH5, HEMDF, LDH3, DDI2, BMP3M, ESR, FOLT3, URIC3, FEIBC, FERR3, B12, FT4M #### [facility] [address] [place], [place] #### HVAAO, ANA3, HEPAN, B2GPG, B2GPM, B2GPA #### [address] #### LUPUS #### The performing lab is in the report. Monocytes (Bld) [#/Vol] 0.8 10*3/uL Normal 0.0-0.8 [facility] Comment on above: Performed By: #### A PTT, TSH5, HEMDF, LDH3, DDI2, BMP3M, ESR, FOLT3, URIC3, FEIBC, FERR3, B12, FT4M #### [facility] [address] [place], [place] #### HVAAO, ANA3, HEPAN, B2GPG, B2GPM, B2GPA #### [address] #### LUPUS #### The performing lab is in the report. Monocytes/100 WBC (Bld) 7.7 % Normal 2.0-10.0 [facility] Comment on above: Performed By: #### A PTT, TSH5, HEMDF, LDH3, DDI2, BMP3M, ESR, FOLT3, URIC3, FEIBC, FERR3, B12, FT4M #### [facility] [address] [place] [address] #### HVAAO, ANA3, HEPAN, B2GPG, B2GPM, B2GPA #### [address] #### LUPUS #### The performing lab is in the report. Platelet mean volume (Bld) [Entitic vol] 9.2 fL Normal 7.4-10.4 [facility] Comment on above: Performed By: #### A PTT, TSH5, HEMDF, LDH3, DDI2, BMP3M, ESR, FOLT3, URIC3, FEIBC, FERR3, B12, FT4M #### [place] [address] [place] [address] #### HVAAO, ANA3, HEPAN, B2GPG, B2GPM, B2GPA #### [address] #### LUPUS #### The performing lab is in the report. Platelets (Bld) [#/Vol] 208 10*3/uL Normal 140-440 [facility] Comment on above: Performed By: #### A PTT, TSH5, HEMDF, LDH3, DDI2, BMP3M, ESR, FOLT3, URIC3, FEIBC, FERR3, B12, FT4M #### [place] [address] [place] [address] #### HVAAO, ANA3, HEPAN, B2GPG, B2GPM, B2GPA #### [address] #### LUPUS #### The performing lab is in the report. RBC (Bld) [#/Vol] 4.74 10*6/uL Normal 3.80-5.20 [facility] Comment on above: Performed By: #### A PTT, TSH5, HEMDF, LDH3, DDI2, BMP3M, ESR, FOLT3, URIC3, FEIBC, FERR3, B12, FT4M #### [facility] [address] [place] [address] #### HVAAO, ANA3, HEPAN, B2GPG, B2GPM, B2GPA #### [address] #### LUPUS #### The performing lab is in the report. WBC (Bld) [#/Vol] 10.0 10*3/uL Normal 3.6-10.7 [facility] Comment on above: Performed By: #### A PTT, TSH5, HEMDF, LDH3, DDI2, BMP3M, ESR, FOLT3, URIC3, FEIBC, FERR3, B12, FT4M #### [place] [address] [place] [address] #### HVAAO, ANA3, HEPAN, B2GPG, B2GPM, B2GPA #### [address] #### LUPUS #### The performing lab is in the report. Magnesiumon 11-03-2021 Magnesium [Mass/Vol] 2.1 mg/dL Normal 1.6-2.3 [facility] Comment on above: Performed By: #### A PTT, TSH5, HEMDF, LDH3, DDI2, BMP3M, ESR, FOLT3, URIC3, FEIBC, FERR3, B12, FT4M #### [address] [place] [address] #### HVAAO, ANA3, HEPAN, B2GPG, B2GPM, B2GPA #### [address] #### LUPUS #### The performing lab is in the report. APTTon 11-02-2021 aPTT Coag (Bld) [Time] 22.5 s Normal 20.0-30.5 [facility] Comment on above: Result Comment: NOTE : The therapeutic time for Heparin anticoagulation, based on Xa activity inhibition, is an APTT of 46-80 seconds. Performed By: #### A PTT, TSH5, HEMDF, LDH3, DDI2, BMP3M, ESR, FOLT3, URIC3, FEIBC, FERR3, B12, FT4M #### [facility] [address] [place] [address] #### HVAAO, ANA3, HEPAN, B2GPG, B2GPM, B2GPA #### [address] #### LUPUS #### The performing lab is in the report. Add on test from HISon 11-02 Add on test from HIS Accepted Normal [facility] Comment on above: Result Comment: Spec imen available & acceptable for analysis. Performed By: #### A PTT, TSH5, HEMDF, LDH3, DDI2, BMP3M, ESR, FOLT3, URIC3, FEIBC, FERR3, B12, FT4M #### [facility] [address] [place] [address] #### HVAAO, ANA3, HEPAN, B2GPG, B2GPM, B2GPA #### [address] #### LUPUS #### The performing lab is in the report. Basic Metabolic Panelon 10-23 Calcium [Mass/Vol] 9.4 mg/dL Normal 8.4-10.4 [facility] Comment on above: Performed By: #### A PTT, TSH5, HEMDF, LDH3, DDI2, BMP3M, ESR, FOLT3, URIC3, FEIBC, FERR3, B12, FT4M #### [facility] [address] [place] [address] #### HVAAO, ANA3, HEPAN, B2GPG, B2GPM, B2GPA #### [address] #### LUPUS #### The performing lab is in the report. Anion gap [Moles/Vol] 7 mmol/L Normal 3-13 [facility] Comment on above: Performed By: #### A PTT, TSH5, HEMDF, LDH3, DDI2, BMP3M, ESR, FOLT3, URIC3, FEIBC, FERR3, B12, FT4M #### [facility] [address] [place] [address] #### HVAAO, ANA3, HEPAN, B2GPG, B2GPM, B2GPA #### [address] #### LUPUS #### The performing lab is in the report. CO2 [Moles/Vol] 30 mmol/L Normal 22-30 [facility] Comment on above: Performed By: #### A PTT, TSH5, HEMDF, LDH3, DDI2, BMP3M, ESR, FOLT3, URIC3, FEIBC, FERR3, B12, FT4M #### [address] [place] [address] #### HVAAO, ANA3, HEPAN, B2GPG, B2GPM, B2GPA #### [address] #### LUPUS #### The performing lab is in the report. Creatinine [Mass/Vol] 0.99 mg/dL Normal 0.52-1.25 [facility] Comment on above: Performed By: #### A PTT, TSH5, HEMDF, LDH3, DDI2, BMP3M, ESR, FOLT3, URIC3, FEIBC, FERR3, B12, FT4M #### [address] [address] #### HVAAO, ANA3, HEPAN, B2GPG, B2GPM, B2GPA #### [address] #### LUPUS #### The performing lab is in the report. GFR/1.73 sq M.predicted among blacks MDRD (S/P/Bld) [Vol rate/Area] 63.0 mL/min/{1.73_m2} Normal >60 [facility] Comment on above: Performed By: #### A PTT, TSH5, HEMDF, LDH3, DDI2, BMP3M, ESR, FOLT3, URIC3, FEIBC, FERR3, B12, FT4M #### [facility] [address] [place] [address] #### HVAAO, ANA3, HEPAN, B2GPG, B2GPM, B2GPA #### [facility] [address], [place] #### LUPUS #### The performing lab is in the report. GFR/1.73 sq M.predicted among non-blacks MDRD (S/P/Bld) [Vol rate/Area] 54.4 mL/min/{1.73_m2} Abnormal >60 [facility] Comment on above: Result Comment: KDIG O [...] FOLT3, URIC3, FEIBC, FERR3, B12, FT4M #### [employer] [address] [place] [address] #### HVAAO, ANA3, HEPAN, B2GPG, B2GPM, B2GPA #### [facility] [address], [place] #### LUPUS #### The performing lab is in the report. Glucose [Mass/Vol] 116 mg/dL High 70-100 [facility] Comment on above: Performed By: #### A PTT, TSH5, HEMDF, LDH3, DDI2, BMP3M, ESR, FOLT3, URIC3, FEIBC, FERR3, B12, FT4M #### [facility] [address] [place] [address] #### HVAAO, ANA3, HEPAN, B2GPG, B2GPM, B2GPA #### [address] #### LUPUS #### The performing lab is in the report. Urea nitrogen [Mass/Vol] 22 mg/dL High 9-20 [facility] Comment on above: Performed By: #### A PTT, TSH5, HEMDF, LDH3, DDI2, BMP3M, ESR, FOLT3, URIC3, FEIBC, FERR3, B12, FT4M #### [place] [address] [place] [address] #### HVAAO, ANA3, HEPAN, B2GPG, B2GPM, B2GPA #### [address] #### LUPUS #### The performing lab is in the report. Chloride [Moles/Vol] 101 mmol/L Normal 98-107 [facility] Comment on above: Performed By: #### A PTT, TSH5, HEMDF, LDH3, DDI2, BMP3M, ESR, FOLT3, URIC3, FEIBC, FERR3, B12, FT4M #### [place] [address] [place] [address] #### HVAAO, ANA3, HEPAN, B2GPG, B2GPM, B2GPA #### [address] #### LUPUS #### The performing lab is in the report. Potassium [Moles/Vol] 3.2 mmol/L Low 3.5-5.1 [facility] Comment on above: Performed By: #### A PTT, TSH5, HEMDF, LDH3, DDI2, BMP3M, ESR, FOLT3, URIC3, FEIBC, FERR3, B12, FT4M #### [facility] [address] [place] [address] #### HVAAO, ANA3, HEPAN, B2GPG, B2GPM, B2GPA #### [address] [phone] #### LUPUS #### The performing lab is in the report. Sodium [Moles/Vol] 137 mmol/L Normal 135-145 [facility] Comment on above: Performed By: #### A PTT, TSH5, HEMDF, LDH3, DDI2, BMP3M, ESR, FOLT3, URIC3, FEIBC, FERR3, B12, FT4M #### [facility] [address] [place] [address] #### HVAAO, ANA3, HEPAN, B2GPG, B2GPM, B2GPA #### [address] [id number] #### LUPUS #### The performing lab is in the report. CTA Chest w/ + w/o Contrasto n 11-02-2021 CTA Chest w/ + w/o Contrast Patient Name: CHAY TEAGUE Computed Tomography ACCESSION EXAM DATE/TIME PROCEDURE ORDERING PROVIDER [id number] 11/02/2021 17:43 EST CTA Chest w/ + w/o MD BERNARDINO, CAIN Contrast CPT code 46180 [id number] Reason For Exam (CTA Chest w/ + w/o Contrast) LLE DVT, chest pain r/o PE Report Reasons for examination: Chest pain and DVT. CT scan of the chest were performed with bolus contrast and high resolution scans for CT pulmonary angiographic study, with images post-processed by myself on [employer] workstation, with 3D - volume rendered CT [...] and Time: 11/02/2021 5:56 Normal [facility] ED Provider Noteon ED Provider Note Emergency Department Encounter [facility] ED Patient: Chay Teague : 1945 Date [...] leg according to my discussion with the drum tender. Plan is to admit to medicine with [...] are mis-transcribed.) LUIS STERN MD [facility] Luis Stern MD 11/03/21 0736 [facility]ay [facility]ague : 1945 Date [...] otherwise acutely negative except as in the GAMBELL. Past History Past Medical History: Diagnosis Date [...] and Family: Not on file ? Attends Sikh Services: Not on file ? Active Member [...] (more content not included)... Normal [facility] Hemogram w/ Autodiffon 11-02 Abs Baso Cnt 0.1 10*3/uL Normal 0.0-0.2 [facility] Comment on above: Performed By: #### A PTT, TSH5, HEMDF, LDH3, DDI2, BMP3M, ESR, FOLT3, URIC3, FEIBC, FERR3, B12, FT4M #### [facility] [address] [place] [address] #### HVAAO, ANA3, HEPAN, B2GPG, B2GPM, B2GPA #### [address] [phone] #### LUPUS #### The performing lab is in the report. Abs Neutrophile Cnt 6.8 10*3/uL Normal 1.8-7.0 [facility] Comment on above: Performed By: #### A PTT, TSH5, HEMDF, LDH3, DDI2, BMP3M, ESR, FOLT3, URIC3, FEIBC, FERR3, B12, FT4M #### [facility] [address] [place] [address] #### HVAAO, ANA3, HEPAN, B2GPG, B2GPM, B2GPA #### [address] [phone] #### LUPUS #### The performing lab is in the report. Basophils/100 WBC (Bld) 0.8 % Normal 0.0-2.0 [facility] Comment on above: Performed By: #### A PTT, TSH5, HEMDF, LDH3, DDI2, BMP3M, ESR, FOLT3, URIC3, FEIBC, FERR3, B12, FT4M #### [place] [address] [place] [address] #### HVAAO, ANA3, HEPAN, B2GPG, B2GPM, B2GPA #### [address] #### LUPUS #### The performing lab is in the report. Eosinophils (Bld) [#/Vol] 0.3 10*3/uL Normal 0.0-0.5 [facility] Comment on above: Performed By: #### A PTT, TSH5, HEMDF, LDH3, DDI2, BMP3M, ESR, FOLT3, URIC3, FEIBC, FERR3, B12, FT4M #### [address] [place] [address] #### HVAAO, ANA3, HEPAN, B2GPG, B2GPM, B2GPA #### [address] #### LUPUS #### The performing lab is in the report. Eosinophils/100 WBC (Bld) 2.9 % Normal 1.0-6.0 [facility] Comment on above: Performed By: #### A PTT, TSH5, HEMDF, LDH3, DDI2, BMP3M, ESR, FOLT3, URIC3, FEIBC, FERR3, B12, FT4M #### [address] [place] [address] #### HVAAO, ANA3, HEPAN, B2GPG, B2GPM, B2GPA #### [address] #### LUPUS #### The performing lab is in the report. Erythrocyte distribution width (RBC) [Ratio] 15.2 % High 11.5-14.5 [facility] Comment on above: Performed By: #### A PTT, TSH5, HEMDF, LDH3, DDI2, BMP3M, ESR, FOLT3, URIC3, FEIBC, FERR3, B12, FT4M #### [address] [place] #### HVAAO, ANA3, HEPAN, B2GPG, B2GPM, B2GPA #### [address] #### LUPUS #### The performing lab is in the report. Granulocytes/100 WBC (Bld) 62.6 % Normal 40.0-80.0 [facility] Comment on above: Performed By: #### A PTT, TSH5, HEMDF, LDH3, DDI2, BMP3M, ESR, FOLT3, URIC3, FEIBC, FERR3, B12, FT4M #### [address] [place] #### HVAAO, ANA3, HEPAN, B2GPG, B2GPM, B2GPA #### [address] #### LUPUS #### The performing lab is in the report. Hematocrit (Bld) [Volume fraction] 41.3 % Normal 35.0-47.0 [facility] Comment on above: Performed By: #### A PTT, TSH5, HEMDF, LDH3, DDI2, BMP3M, ESR, FOLT3, URIC3, FEIBC, FERR3, B12, FT4M #### [address] [place] #### HVAAO, ANA3, HEPAN, B2GPG, B2GPM, B2GPA #### [address] #### LUPUS #### The performing lab is in the report. Hemoglobin (Bld) [Mass/Vol] 13.9 g/dL Normal 11.7-16.0 [facility] Comment on above: Performed By: #### A PTT, TSH5, HEMDF, LDH3, DDI2, BMP3M, ESR, FOLT3, URIC3, FEIBC, FERR3, B12, FT4M #### [address] [place] #### HVAAO, ANA3, HEPAN, B2GPG, B2GPM, B2GPA #### [address] #### LUPUS #### The performing lab is in the report. Lymphocytes (Bld) [#/Vol] 2.6 10*3/uL Normal 1.0-4.3 [facility] Comment on above: Performed By: #### A PTT, TSH5, HEMDF, LDH3, DDI2, BMP3M, ESR, FOLT3, URIC3, FEIBC, FERR3, B12, FT4M #### [place] [address] [place], [place] #### HVAAO, ANA3, HEPAN, B2GPG, B2GPM, B2GPA #### [address] #### LUPUS #### The performing lab is in the report. Lymphocytes/100 WBC (Bld) 23.6 % Normal 20.0-40.0 [facility] Comment on above: Performed By: #### A PTT, TSH5, HEMDF, LDH3, DDI2, BMP3M, ESR, FOLT3, URIC3, FEIBC, FERR3, B12, FT4M #### [facility] [address] [place], [place] #### HVAAO, ANA3, HEPAN, B2GPG, B2GPM, B2GPA #### [address] #### LUPUS #### The performing lab is in the report. MCH (RBC) [Entitic mass] 30.7 pg Normal 26.0-34.0 [facility] Comment on above: Performed By: #### A PTT, TSH5, HEMDF, LDH3, DDI2, BMP3M, ESR, FOLT3, URIC3, FEIBC, FERR3, B12, FT4M #### [facility] [address] [place], [place] #### HVAAO, ANA3, HEPAN, B2GPG, B2GPM, B2GPA #### [facility] [address], [place] #### LUPUS #### The performing lab is in the report. MCHC 33.6 % Normal 32.0-36.0 [facility] Comment on above: Performed By: #### A PTT, TSH5, HEMDF, LDH3, DDI2, BMP3M, ESR, FOLT3, URIC3, FEIBC, FERR3, B12, FT4M #### [facility] [address] [place] [address] #### HVAAO, ANA3, HEPAN, B2GPG, B2GPM, B2GPA #### [address] #### LUPUS #### The performing lab is in the report. MCV (RBC) [Entitic vol] 91.2 fL Normal 79.0-98.0 [facility] Comment on above: Performed By: #### A PTT, TSH5, HEMDF, LDH3, DDI2, BMP3M, ESR, FOLT3, URIC3, FEIBC, FERR3, B12, FT4M #### [facility] [address] [place] [address] #### HVAAO, ANA3, HEPAN, B2GPG, B2GPM, B2GPA #### [address] #### LUPUS #### The performing lab is in the report. Monocytes (Bld) [#/Vol] 1.1 10*3/uL High 0.0-0.8 [facility] Comment on above: Performed By: #### A PTT, TSH5, HEMDF, LDH3, DDI2, BMP3M, ESR, FOLT3, URIC3, FEIBC, FERR3, B12, FT4M #### [facility] [address] [place] [address] #### HVAAO, ANA3, HEPAN, B2GPG, B2GPM, B2GPA #### [address] #### LUPUS #### The performing lab is in the report. Monocytes/100 WBC (Bld) 10.1 % High 2.0-10.0 [facility] Comment on above: Performed By: #### A PTT, TSH5, HEMDF, LDH3, DDI2, BMP3M, ESR, FOLT3, URIC3, FEIBC, FERR3, B12, FT4M #### [facility] [address] [place] [address] #### HVAAO, ANA3, HEPAN, B2GPG, B2GPM, B2GPA #### [address] #### LUPUS #### The performing lab is in the report. Platelet mean volume (Bld) [Entitic vol] 8.9 fL Normal 7.4-10.4 [facility] Comment on above: Performed By: #### A PTT, TSH5, HEMDF, LDH3, DDI2, BMP3M, ESR, FOLT3, URIC3, FEIBC, FERR3, B12, FT4M #### [facility] [address] [place] [address] #### HVAAO, ANA3, HEPAN, B2GPG, B2GPM, B2GPA #### [address] #### LUPUS #### The performing lab is in the report. Platelets (Bld) [#/Vol] 208 10*3/uL Normal 140-440 [facility] Comment on above: Performed By: #### A PTT, TSH5, HEMDF, LDH3, DDI2, BMP3M, ESR, FOLT3, URIC3, FEIBC, FERR3, B12, FT4M #### [facility] [address] [place] [address] #### HVAAO, ANA3, HEPAN, B2GPG, B2GPM, B2GPA #### [address] #### LUPUS #### The performing lab is in the report. RBC (Bld) [#/Vol] 4.53 10*6/uL Normal 3.80-5.20 [facility] Comment on above: Performed By: #### A PTT, TSH5, HEMDF, LDH3, DDI2, BMP3M, ESR, FOLT3, URIC3, FEIBC, FERR3, B12, FT4M #### [facility] [address] [place] [address] #### HVAAO, ANA3, HEPAN, B2GPG, B2GPM, B2GPA #### [address] [address] #### LUPUS #### The performing lab is in the report. WBC (Bld) [#/Vol] 10.9 10*3/uL High 3.6-10.7 [facility] Comment on above: Performed By: #### A PTT, TSH5, HEMDF, LDH3, DDI2, BMP3M, ESR, FOLT3, URIC3, FEIBC, FERR3, B12, FT4M #### [facility] [address] [place] [address] #### HVAAO, ANA3, HEPAN, B2GPG, B2GPM, B2GPA #### [address] [address] #### LUPUS #### The performing lab is in the report. Prothrombin Timeon 2 INR 1.0 Normal 0.9-1.1 [facility] Comment on above: Result Comment: Kwaku mmended [...] FOLT3, URIC3, FEIBC, FERR3, B12, FT4M #### [address] [place] [address] #### HVAAO, ANA3, HEPAN, B2GPG, B2GPM, B2GPA #### [address] [phone] #### LUPUS #### The performing lab is in the report. PT Coag (PPP) [Time] 10.6 s Normal 9.0-12.0 [facility] Comment on above: Result Comment: . Performed By: #### A PTT, TSH5, HEMDF, LDH3, DDI2, BMP3M, ESR, FOLT3, URIC3, FEIBC, FERR3, B12, FT4M #### [address] [place] [address] #### HVAAO, ANA3, HEPAN, B2GPG, B2GPM, B2GPA #### [address] #### LUPUS #### The performing lab is in the report. Troponin Ion 11-02-2021 Troponin I.cardiac [Mass/Vol] ng/mL Normal 0.000-0.034 [facility] Comment on above: Result Comment: . Performed By: #### A PTT, TSH5, HEMDF, LDH3, DDI2, BMP3M, ESR, FOLT3, URIC3, FEIBC, FERR3, B12, FT4M #### [address] [place] [address] #### HVAAO, ANA3, HEPAN, B2GPG, B2GPM, B2GPA #### [address] #### LUPUS #### The performing lab is in the report. VL Venous Duplex US Lower Ex t Lefton 11-02-2021 VL Venous Duplex US Lower Ext Left Patient Name: CHAY TEAGUE Ultrasound ACCESSION EXAM DATE/TIME PROCEDURE ORDERING PROVIDER [id number] 11/02/2021 13:09 EST VL Venous Duplex [place] [id number] SHARRI COTTRELL Lower Ext Left CPT code 42908 Reason For Exam (VL Venous Duplex US Lower Ext Left) left lower leg swelling - new onset today Report [facility] Lower Extremity Venous Duplex Report Patient Chay Teageu : 1945 Study 11/02/2021 Name: Krystal (76yrs) Date: Age: 76 Account: [id number] Gender: F Loc: 444 BP: Ordering Physician: Sharri Fatima Rubber Roller Grinder: Mikal Serna RVT Interpreting Physician: Christofer Carrillo MD Location: [facility] Indications: Edema left entire leg. New onset [...] supine position. Images were obtained using a [employer] vascular ultrasound machine. The study was technically [...] (more content not included)... Normal [facility] KNEE CMPLT, 4 OR MORE VIEWSo n 08-29-2021 KNEE CMPLT, 4 OR MORE VIEWS Patient Name: CHAY TEAGUE STUDY: KNEE; COMPLT, 4 OR MORE VIEWS INDICATION: knee pain M25.562: Knee pain, left. COMPARISON: None ACCESSION NUMBER(S): [id number] ORDERING CLINICIAN: NIMCO TURNER FINDINGS: Four views left knee demonstrate minimal degenerative change. No fracture seen. No osseous abnormality. IMPRESSION: No acute findings left knee. Electronically signed by: JACKLYN MURDOCK MD Normal [facility] Office Visit (Urgent Care)on 08-29-2021 Follow-up visit Diagnoses/Problems Assessed Knee pain, left (719.46) (M25.562) Orders Knee pain, left Xray Knee Complete 4 or more View; Status:Resulted - Requires Verification; Done: [id number] 07:42PM Performed:[facility]; Due:27Nov2021;Ordered; Stat; For:Knee pain, left; Ordered [...] appropriate use. Thx. Vitals Vital Signs Recorded: 29Aug2021 07:41PM Vfishpcflod41.3 F Heart Vpyx680 Ygtlpnhlaep79 Rfhqnzqs362 Stmytvcfl84 Height5 ft 1 in Kwkuib752 lb BMI Zjhcqtenua53.9 kg/m2 BSA Calculated1.85 Tobacco Useb) No Fall Screeningb) One or more falls in the last year O2 Fnuxmjfazx61 Physical Exam Constitutional: Well developed, well nourished. [...] Results/Data Xray Knee Complete 4 or more [id number] 07:42PMNimco Turner Test NameResultFlagReference Xray Knee Complete 4 or more View(Report) FINAL REPORT Interpreted by: JACKLYN MURDOCK CHRISTOPHER, MD 08/29/21 19:50 Patient Name: CHAY TEAGUE STUDY: KNEE; COMPLT, 4 OR MORE VIEWS INDICATION: knee pain M25.562: Knee pain, left. COMPARISON: None ACCESSION NUMBER(S): [id number] ORDERING CLINICIAN: NIMCO TURNER FINDINGS: Four views left knee demonstrate minimal degenerative change. No fracture seen. No osseous abnormality. IMPRESSION: No acute findings left knee. Electronically signed by: JACKLYN MURDOCK 08/29/21 19:50 Signatures Electronically signed by : Nimco Turner, CHAPITO-MERCHANDISE EXECUTIVE; Aug 29 2021 8:16PM EST (Author) Normal [facility] 08-29-2021 XR Knee 4 Views [...] 1.8 - 7.0 10*3/uL [facility] Work Phone: [phone] Basophils/100 WBC (Bld) 0.8 % 0.0 - 2.0 % [facility] Work Phone: [phone] Eosinophils (Bld) [#/Vol] 0.3 10*3/uL 0.0 - 0.5 10*3/uL [facility] Work Phone: [phone] Eosinophils/100 WBC (Bld) 3.2 % 1.0 - 6.0 % [facility] Work Phone: [phone] Granulocytes/100 WBC (Bld) 59.4 % 40.0 - 80.0 % [facility] Work Phone: [phone] Hematocrit (Bld) [Volume fraction] 44.8 % 35.0 - 47.0 % [facility] Work Phone: Hemoglobin.gastrointes tinal spec 1 Ql (Stl) 15.1 g/dL 11.7 - 16.0 g/dL [facility] Work Phone: Interpretation and review of laboratory results Abnormal [facility] Work Phone: [phone] Lymphocytes (Bld) [#/Vol] 2.3 10*3/uL 1.0 - 4.3 10*3/uL [facility] Work Phone: [phone] Lymphocytes/100 WBC (Bld) 28.2 % 20.0 - 40.0 % [facility] Work Phone: [phone] MCH (RBC) [Entitic mass] 30.4 pg 26.0 - 34.0 pg [facility] Work Phone: [phone] MCHC (RBC) [Mass/Vol] 33.6 % 32.0 - 36.0 % [facility] Work Phone: [phone] MCV (RBC) [Entitic vol] 90.3 fL 79.0 - 98.0 fL [employer] Work Phone: [phone] Monocytes (Bld) [#/Vol] 0.7 10*3/uL 0.0 - 0.8 10*3/uL [employer] Work Phone: [phone] Monocytes/100 WBC (Bld) 8.4 % 2.0 - 10.0 % [facility] Work [facility]: [phone] Platelet distribution width (Bld) [Ratio] 14.6 % High 11.5 - 14.5 % [employer] Work Phone: [phone] Platelet mean volume (Bld) [Entitic vol] 8.0 fL 7.4 - 10.4 fL [employer] Work Phone: [phone] Platelets (Bld) [#/Vol] 268 10*3/uL 140 - 440 10*3/uL [employer] Work Phone: [phone] RBC (Bld) [#/Vol] 4.96 10*6/uL 3.80 - 5.2 0 10*6/uL [employer] Work Phone: [phone] WBC (Bld) [#/Vol] 8.2 10*3/uL 3.6 - 10.7 10*3/uL [employer] Work Phone: [phone] Test Performed by [facility], [address] , [place], [place] [address] Work Phone: [phone] [facility] Work Phone: [phone] Comp Metabolic Panelon 05-10 ALP [Catalytic activity/Vol] 122 U/L Normal 38-126 [facility] Comment on above: Performed By: #### A PTT, TSH5, HEMDF, LDH3, DDI2, BMP3M, ESR, FOLT3, URIC3, FEIBC, FERR3, B12, FT4M #### [facility] [address] [place] [address] #### HVAAO, ANA3, HEPAN, B2GPG, B2GPM, B2GPA #### [address] [address] #### LUPUS #### The performing lab is in the report. ALT [Catalytic activity/Vol] 19 U/L Normal 0-34 [facility] Comment on above: Result Comment: The ALT test is performed by an updated assay method. Please note that the reference intervals have been changed and are now sex specific. Performed By: #### A PTT, TSH5, HEMDF, LDH3, DDI2, BMP3M, ESR, FOLT3, URIC3, FEIBC, FERR3, B12, FT4M #### [place] [address] [place] [address] #### HVAAO, ANA3, HEPAN, B2GPG, B2GPM, B2GPA #### [address] #### LUPUS #### The performing lab is in the report. AST [Catalytic activity/Vol] 33 U/L Normal 15-46 [facility] Comment on above: Performed By: #### A PTT, TSH5, HEMDF, LDH3, DDI2, BMP3M, ESR, FOLT3, URIC3, FEIBC, FERR3, B12, FT4M #### [place] [address] [place] [address] #### HVAAO, ANA3, HEPAN, B2GPG, B2GPM, B2GPA #### [address] [address] #### LUPUS #### The performing lab is in the report. Calcium [Mass/Vol] 9.8 mg/dL Normal 8.4-10.4 [facility] Comment on above: Performed By: #### A PTT, TSH5, HEMDF, LDH3, DDI2, BMP3M, ESR, FOLT3, URIC3, FEIBC, FERR3, B12, FT4M #### [place] [address] [place] [address] #### HVAAO, ANA3, HEPAN, B2GPG, B2GPM, B2GPA #### [address] #### LUPUS #### The performing lab is in the report. Glucose [Mass/Vol] 98 mg/dL Normal 70-100 [facility] Comment on above: Performed By: #### A PTT, TSH5, HEMDF, LDH3, DDI2, BMP3M, ESR, FOLT3, URIC3, FEIBC, FERR3, B12, FT4M #### [place] [address] [place] #### HVAAO, ANA3, HEPAN, B2GPG, B2GPM, B2GPA #### [address] #### LUPUS #### The performing lab is in the report. Protein [Mass/Vol] 8.0 g/dL Normal 6.3-8.2 [facility] Comment on above: Performed By: #### A PTT, TSH5, HEMDF, LDH3, DDI2, BMP3M, ESR, FOLT3, URIC3, FEIBC, FERR3, B12, FT4M #### [address] [place] #### HVAAO, ANA3, HEPAN, B2GPG, B2GPM, B2GPA #### [address] #### LUPUS #### The performing lab is in the report. Urea nitrogen [Mass/Vol] 22 mg/dL High 7-20 [facility] Comment on above: Performed By: #### A PTT, TSH5, HEMDF, LDH3, DDI2, BMP3M, ESR, FOLT3, URIC3, FEIBC, FERR3, B12, FT4M #### [place] [address] [place] #### HVAAO, ANA3, HEPAN, B2GPG, B2GPM, B2GPA #### [address] #### LUPUS #### The performing lab is in the report. Anion gap [Moles/Vol] 6 mmol/L Normal 3-13 [facility] Comment on above: Performed By: #### A PTT, TSH5, HEMDF, LDH3, DDI2, BMP3M, ESR, FOLT3, URIC3, FEIBC, FERR3, B12, FT4M #### [place] [address] [place] [address] #### HVAAO, ANA3, HEPAN, B2GPG, B2GPM, B2GPA #### [address] #### LUPUS #### The performing lab is in the report. Bilirubin [Mass/Vol] 0.7 mg/dL Normal 0.2-1.3 [facility] Comment on above: Performed By: #### A PTT, TSH5, HEMDF, LDH3, DDI2, BMP3M, ESR, FOLT3, URIC3, FEIBC, FERR3, B12, FT4M #### [address] [place] [address] #### HVAAO, ANA3, HEPAN, B2GPG, B2GPM, B2GPA #### [address] #### LUPUS #### The performing lab is in the report. CO2 [Moles/Vol] 30 mmol/L Normal 22-30 [facility] Comment on above: Performed By: #### A PTT, TSH5, HEMDF, LDH3, DDI2, BMP3M, ESR, FOLT3, URIC3, FEIBC, FERR3, B12, FT4M #### [address] [place] [address] #### HVAAO, ANA3, HEPAN, B2GPG, B2GPM, B2GPA #### [address] #### LUPUS #### The performing lab is in the report. Creatinine [Mass/Vol] 0.99 mg/dL Normal 0.52-1.25 [facility] Comment on above: Performed By: #### A PTT, TSH5, HEMDF, LDH3, DDI2, BMP3M, ESR, FOLT3, URIC3, FEIBC, FERR3, B12, FT4M #### [facility] [address] [place] [address] #### HVAAO, ANA3, HEPAN, B2GPG, B2GPM, B2GPA #### [address] #### LUPUS #### The performing lab is in the report. GFR/1.73 sq M.predicted among blacks MDRD (S/P/Bld) [Vol rate/Area] 63.2 mL/min/{1.73_m2} Normal >60 [facility] Comment on above: Performed By: #### A PTT, TSH5, HEMDF, LDH3, DDI2, BMP3M, ESR, FOLT3, URIC3, FEIBC, FERR3, B12, FT4M #### [facility] [address] [place] [address] #### HVAAO, ANA3, HEPAN, B2GPG, B2GPM, B2GPA #### [address] #### LUPUS #### The performing lab is in the report. GFR/1.73 sq M.predicted among non-blacks MDRD (S/P/Bld) [Vol rate/Area] 54.6 mL/min/{1.73_m2} Abnormal >60 [facility] Comment on above: Result Comment: KDIG O [...] FOLT3, URIC3, FEIBC, FERR3, B12, FT4M #### [place] [address] [place] [address] #### HVAAO, ANA3, HEPAN, B2GPG, B2GPM, B2GPA #### [address] #### LUPUS #### The performing lab is in the report. Albumin [Mass/Vol] 4.1 g/dL Normal 3.5-5.0 [facility] Comment on above: Performed By: #### A PTT, TSH5, HEMDF, LDH3, DDI2, BMP3M, ESR, FOLT3, URIC3, FEIBC, FERR3, B12, FT4M #### [address] [address] #### HVAAO, ANA3, HEPAN, B2GPG, B2GPM, B2GPA #### [address] #### LUPUS #### The performing lab is in the report. Chloride [Moles/Vol] 105 mmol/L Normal 98-107 [facility] Comment on above: Performed By: #### A PTT, TSH5, HEMDF, LDH3, DDI2, BMP3M, ESR, FOLT3, URIC3, FEIBC, FERR3, B12, FT4M #### [address] [place] [address] #### HVAAO, ANA3, HEPAN, B2GPG, B2GPM, B2GPA #### [address] #### LUPUS #### The performing lab is in the report. Potassium [Moles/Vol] 4.3 mmol/L Normal 3.5-5.1 [facility] Comment on above: Performed By: #### A PTT, TSH5, HEMDF, LDH3, DDI2, BMP3M, ESR, FOLT3, URIC3, FEIBC, FERR3, B12, FT4M #### [place] [address] [place] [address] #### HVAAO, ANA3, HEPAN, B2GPG, B2GPM, B2GPA #### [address] #### LUPUS #### The performing lab is in the report. Sodium [Moles/Vol] 141 mmol/L Normal 135-145 [facility] Comment on above: Performed By: #### A PTT, TSH5, HEMDF, LDH3, DDI2, BMP3M, ESR, FOLT3, URIC3, FEIBC, FERR3, B12, FT4M #### [facility] [address] [place] [address] #### HVAAO, ANA3, HEPAN, B2GPG, B2GPM, B2GPA #### [address] #### LUPUS #### The performing lab is in the report. Comprehensive Metabolic Pane lOrdered By: Cynthia Uribe on 05-10-2021 Albumin [Mass/Vol] 4.1 g/dL 3.5 - 5.0 g/dL [facility] Work Phone: ALP (Bld) [Catalytic activity/Vol] 122 U/L 38 - 126 U/L [facility] Work Phone: [phone] ALT [Catalytic activity/Vol] 19 U/L 0 - 34 U/L [facility] Work Phone: Comment on above: The ALT test is perf ormed by an updated assay method. Please note that the reference intervals have been changed and are now sex specific. Anion gap [Moles/Vol] 6 mmol/L 3 - 13 mmol/L [facility] Work Phone: AST [Catalytic activity/Vol] 33 U/L 15 - 46 U/L [facility] Work Phone: [phone] Bilirubin [Mass/Vol] 0.7 mg/dL 0.2 - 1 .3 mg/dL [facility] Work Phone: Calcium [Mass/Vol] 9.8 mg/dL 8.4 - 10. 4 mg/dL [facility] Work Phone: [phone] Chloride [Moles/Vol] 105 mmol/L 98 - 10 7 mmol/L [facility] Work Phone: [phone] CO2 [Moles/Vol] 30 mmol/L 22 - 30 mmol/L [facility] Work Phone: [phone] Creatinine [Mass/Vol] 0.99 mg/dL 0.52 - 1.25 mg/dL [facility] Work Phone: [phone] EGFR IF NonAfrican [place] Islander 54.6 mL/min Abnormal >60 [facility] Work Phone: [phone] Comment on above: KDIGO guidelines pro [...] fraction] 8.0 g/dL 6.3 - 8.2 g/dL [facility] Work Phone: GFR/1.73 sq M.predicted among blacks MDRD (S/P/Bld) [Vol rate/Area] 63.2 mL/min/{1.73_m2} >60 [facility] Work Phone: [phone] Glucose [Mass/Vol] 98 mg/dL 70 - 100 mg/dL [facility] Work Phone: [phone] Interpretation and review of laboratory results Abnormal [facility] Work Phone: [phone] Potassium [Moles/Vol] 4.3 mmol/L 3.5 - 5.1 mmol/L [facility] Work Phone: [phone] Sodium [Moles/Vol] 141 mmol/L 135 - 145 mmol/L [facility] Work Phone: [phone] Urea nitrogen (BldV) [Mass/Vol] 22 mg/dL High 7 - 20 mg/dL [facility] Work Phone: [phone] Test Performed by [facility], [facility] [address] , [address] Work Phone: [phone] [facility] Work Phone: [phone] Hemogram w/ Autodiffon 05-10 Abs Baso Cnt 0.1 10*3/uL Normal 0.0-0.2 [facility] Comment on above: Performed By: #### A PTT, TSH5, HEMDF, LDH3, DDI2, BMP3M, ESR, FOLT3, URIC3, FEIBC, FERR3, B12, FT4M #### [facility] [employer] [address] [place] [address] #### HVAAO, ANA3, HEPAN, B2GPG, B2GPM, B2GPA #### [facility] [employer] [address] [address] #### LUPUS #### The performing lab is in the report. Abs Neutrophile Cnt 4.9 10*3/uL Normal 1.8-7.0 [facility] Comment on above: Performed By: #### A PTT, TSH5, HEMDF, LDH3, DDI2, BMP3M, ESR, FOLT3, URIC3, FEIBC, FERR3, B12, FT4M #### [facility] [employer] [address] [place] [address] #### HVAAO, ANA3, HEPAN, B2GPG, B2GPM, B2GPA #### [address] #### LUPUS #### The performing lab is in the report. Basophils/100 WBC (Bld) 0.8 % Normal 0.0-2.0 [facility] Comment on above: Performed By: #### A PTT, TSH5, HEMDF, LDH3, DDI2, BMP3M, ESR, FOLT3, URIC3, FEIBC, FERR3, B12, FT4M #### [facility] [address] [place] [address] #### HVAAO, ANA3, HEPAN, B2GPG, B2GPM, B2GPA #### [address] #### LUPUS #### The performing lab is in the report. Eosinophils (Bld) [#/Vol] 0.3 10*3/uL Normal 0.0-0.5 [facility] Comment on above: Performed By: #### A PTT, TSH5, HEMDF, LDH3, DDI2, BMP3M, ESR, FOLT3, URIC3, FEIBC, FERR3, B12, FT4M #### [facility] [address] [place], [place] #### HVAAO, ANA3, HEPAN, B2GPG, B2GPM, B2GPA #### [address] #### LUPUS #### The performing lab is in the report. Eosinophils/100 WBC (Bld) 3.2 % Normal 1.0-6.0 [facility] Comment on above: Performed By: #### A PTT, TSH5, HEMDF, LDH3, DDI2, BMP3M, ESR, FOLT3, URIC3, FEIBC, FERR3, B12, FT4M #### [address] [place], [place] #### HVAAO, ANA3, HEPAN, B2GPG, B2GPM, B2GPA #### [address] [phone] #### LUPUS #### The performing lab is in the report. Erythrocyte distribution width (RBC) [Ratio] 14.6 % High 11.5-14.5 [facility] Comment on above: Performed By: #### A PTT, TSH5, HEMDF, LDH3, DDI2, BMP3M, ESR, FOLT3, URIC3, FEIBC, FERR3, B12, FT4M #### [facility] [address] [place] [address] #### HVAAO, ANA3, HEPAN, B2GPG, B2GPM, B2GPA #### [address] #### LUPUS #### The performing lab is in the report. Granulocytes/100 WBC (Bld) 59.4 % Normal 40.0-80.0 [facility] Comment on above: Performed By: #### A PTT, TSH5, HEMDF, LDH3, DDI2, BMP3M, ESR, FOLT3, URIC3, FEIBC, FERR3, B12, FT4M #### [address] [place] [address] #### HVAAO, ANA3, HEPAN, B2GPG, B2GPM, B2GPA #### [address] #### LUPUS #### The performing lab is in the report. Hematocrit (Bld) [Volume fraction] 44.8 % Normal 35.0-47.0 [facility] Comment on above: Performed By: #### A PTT, TSH5, HEMDF, LDH3, DDI2, BMP3M, ESR, FOLT3, URIC3, FEIBC, FERR3, B12, FT4M #### [address] [place] [address] #### HVAAO, ANA3, HEPAN, B2GPG, B2GPM, B2GPA #### [address] #### LUPUS #### The performing lab is in the report. Hemoglobin (Bld) [Mass/Vol] 15.1 g/dL Normal 11.7-16.0 [facility] Comment on above: Performed By: #### A PTT, TSH5, HEMDF, LDH3, DDI2, BMP3M, ESR, FOLT3, URIC3, FEIBC, FERR3, B12, FT4M #### [place] [address] [place] [address] #### HVAAO, ANA3, HEPAN, B2GPG, B2GPM, B2GPA #### [address] #### LUPUS #### The performing lab is in the report. Lymphocytes (Bld) [#/Vol] 2.3 10*3/uL Normal 1.0-4.3 [facility] Comment on above: Performed By: #### A PTT, TSH5, HEMDF, LDH3, DDI2, BMP3M, ESR, FOLT3, URIC3, FEIBC, FERR3, B12, FT4M #### [address] [place] [address] #### HVAAO, ANA3, HEPAN, B2GPG, B2GPM, B2GPA #### [address] #### LUPUS #### The performing lab is in the report. Lymphocytes/100 WBC (Bld) 28.2 % Normal 20.0-40.0 [facility] Comment on above: Performed By: #### A PTT, TSH5, HEMDF, LDH3, DDI2, BMP3M, ESR, FOLT3, URIC3, FEIBC, FERR3, B12, FT4M #### [address] [facility] [place] #### HVAAO, ANA3, HEPAN, B2GPG, B2GPM, B2GPA #### [address] #### LUPUS #### The performing lab is in the report. MCH (RBC) [Entitic mass] 30.4 pg Normal 26.0-34.0 [facility] Comment on above: Performed By: #### A PTT, TSH5, HEMDF, LDH3, DDI2, BMP3M, ESR, FOLT3, URIC3, FEIBC, FERR3, B12, FT4M #### [place] [address] [place] [address] #### HVAAO, ANA3, HEPAN, B2GPG, B2GPM, B2GPA #### [address] #### LUPUS #### The performing lab is in the report. MCHC 33.6 % Normal 32.0-36.0 [facility] Comment on above: Performed By: #### A PTT, TSH5, HEMDF, LDH3, DDI2, BMP3M, ESR, FOLT3, URIC3, FEIBC, FERR3, B12, FT4M #### [address] [place] #### HVAAO, ANA3, HEPAN, B2GPG, B2GPM, B2GPA #### [address] #### LUPUS #### The performing lab is in the report. MCV (RBC) [Entitic vol] 90.3 fL Normal 79.0-98.0 [facility] Comment on above: Performed By: #### A PTT, TSH5, HEMDF, LDH3, DDI2, BMP3M, ESR, FOLT3, URIC3, FEIBC, FERR3, B12, FT4M #### [address] [place] [address] #### HVAAO, ANA3, HEPAN, B2GPG, B2GPM, B2GPA #### [address] #### LUPUS #### The performing lab is in the report. Monocytes (Bld) [#/Vol] 0.7 10*3/uL Normal 0.0-0.8 [facility] Comment on above: Performed By: #### A PTT, TSH5, HEMDF, LDH3, DDI2, BMP3M, ESR, FOLT3, URIC3, FEIBC, FERR3, B12, FT4M #### [facility] [address] [place] [address] #### HVAAO, ANA3, HEPAN, B2GPG, B2GPM, B2GPA #### [address] [address] #### LUPUS #### The performing lab is in the report. Monocytes/100 WBC (Bld) 8.4 % Normal 2.0-10.0 [facility] Comment on above: Performed By: #### A PTT, TSH5, HEMDF, LDH3, DDI2, BMP3M, ESR, FOLT3, URIC3, FEIBC, FERR3, B12, FT4M #### [address] [place] [address] #### HVAAO, ANA3, HEPAN, B2GPG, B2GPM, B2GPA #### [address] #### LUPUS #### The performing lab is in the report. Platelet mean volume (Bld) [Entitic vol] 8.0 fL Normal 7.4-10.4 [facility] Comment on above: Performed By: #### A PTT, TSH5, HEMDF, LDH3, DDI2, BMP3M, ESR, FOLT3, URIC3, FEIBC, FERR3, B12, FT4M #### [address] [place] [address] #### HVAAO, ANA3, HEPAN, B2GPG, B2GPM, B2GPA #### [address] #### LUPUS #### The performing lab is in the report. Platelets (Bld) [#/Vol] 268 10*3/uL Normal 140-440 [facility] Comment on above: Performed By: #### A PTT, TSH5, HEMDF, LDH3, DDI2, BMP3M, ESR, FOLT3, URIC3, FEIBC, FERR3, B12, FT4M #### [address] [place] [address] #### HVAAO, ANA3, HEPAN, B2GPG, B2GPM, B2GPA #### [address] #### LUPUS #### The performing lab is in the report. RBC (Bld) [#/Vol] 4.96 10*6/uL Normal 3.80-5.20 [facility] Comment on above: Performed By: #### A PTT, TSH5, HEMDF, LDH3, DDI2, BMP3M, ESR, FOLT3, URIC3, FEIBC, FERR3, B12, FT4M #### [place] [address] [place] [address] #### HVAAO, ANA3, HEPAN, B2GPG, B2GPM, B2GPA #### [address] #### LUPUS #### The performing lab is in the report. WBC (Bld) [#/Vol] 8.2 10*3/uL Normal 3.6-10.7 [facility] Comment on above: Performed By: #### A PTT, TSH5, HEMDF, LDH3, DDI2, BMP3M, ESR, FOLT3, URIC3, FEIBC, FERR3, B12, FT4M #### [address] [place] [address] #### HVAAO, ANA3, HEPAN, B2GPG, B2GPM, B2GPA #### [address] #### LUPUS #### The performing lab is in the report. Hep C Antibodyon 05-10-2021 Hep C Antibody Not detected Normal Not Detected [facility] Comment on above: Result Comment: Patients with DETECTED Hepatitis C Ab results should have a new specimen submitted for supplemental testing with a Hepatitis C Quantitative RNA assay (viral load), if clinically indicated. Performed By: #### A PTT, TSH5, HEMDF, LDH3, DDI2, BMP3M, ESR, FOLT3, URIC3, FEIBC, FERR3, B12, FT4M #### [facility] [employer] [address] [place] [address] #### HVAAO, ANA3, HEPAN, B2GPG, B2GPM, B2GPA #### [facility] [employer] [address] [place] [id number] #### LUPUS #### The performing lab is in the report. Hepatitis C AntibodyOrdered By: Cynthia Uribe on 05-10-2021 Hepatitis C Ab Not detected Not Detected NA [facility] Work Phone: Comment on above: Patients with DETECTED Hepatitis C Ab results should have a new specimen submitted for supplemental testing with a Hepatitis C Quantitative RNA assay (viral load), if clinically indicated. Test Performed by [facility], [address] [place] [id number] [employer] Work Phone: [employer] Work Phone: TSH without ReflexOrdered By : Cynthia Uribe on 05-10-2021 TSH Qn 2.583 u[IU]/mL 0.465 - 4.680 u[IU]/mL [employer] Work Phone: Test Performed by [facility], [address] [place], [place] [address] [employer] Work Phone: [employer] Work Phone: Thyroid Stim. Hormoneon 04-22 Thyroid Stim. Hormone 2.583 u[IU]/mL Normal 0.465-4.68 0 [facility] [employer] Comment on above: Performed By: #### A PTT, TSH5, HEMDF, LDH3, DDI2, BMP3M, ESR, FOLT3, URIC3, FEIBC, FERR3, B12, FT4M #### [employer] [address] [place] [address] #### HVAAO, ANA3, HEPAN, B2GPG, B2GPM, B2GPA #### [facility] [employer] [address] [place] [address] #### LUPUS #### The performing lab is in the report. Vit D 25-OH, Totalon 021 Vit D 25-OH, Total 51 ng/mL Normal 30-100 [facility] Comment on above: Result Comment: Ther apy is based on measurement of Total 25- OHD with the following classification levels: Less than 20 ng/mL: Indicative of Vit D deficiency 20-30 ng/mL: Suggests Vit D insufficiency Optimal: Greater than or equal to 30 ng/mL Test performed by [employer], measuring Total Vitamin D, not individual fractions. Performed By: #### A PTT, TSH5, HEMDF, LDH3, DDI2, BMP3M, ESR, FOLT3, URIC3, FEIBC, FERR3, B12, FT4M #### [facility] [employer] [facility] [address] [place] [address] #### HVAAO, ANA3, HEPAN, B2GPG, B2GPM, B2GPA #### [facility] [employer] [address] [address] #### LUPUS #### The performing lab is in the report. Vitamin D 25 HydroxyOrdered By: Cynthia Uribe on 05-10-2021 Vit D, 25-Hydroxy 51 ng/mL 30 - 100 ng/mL [employer] Work Phone: Comment on above: Therapy is based on measurement of Total 25-OHD with the following classification levels: Less than 20 ng/mL: Indicative of Vit D deficiency 20-30 ng/mL: Suggests Vit D insufficiency Optimal: Greater than or equal to 30 ng/mL Test performed by [employer], measuring Total Vitamin D, not individual fractions. Test Performed by [facility] [employer] [facility], [address], [place], [place] [address] [employer] Work Phone: [employer] Work Phone: Brain Natriuretic Peptideon 11-02-2020 Natriuretic peptide B (Bld) [Mass/Vol] 51 pg/mL 0 - 450 pg/mL [employer] Work Phone: COVID-19, Rapidon 11-02-2020 Sodium [Moles/Vol] see below [employer] Work Phone: Comment on above: Not Detected Expected Result: Not Detected _ Isothermal nucleic acid amplification performed on the [employer] System by the [facility] Negative results do not preclude SARS-CoV-2 infection and should not be used as the sole basis for treatment or other patient management decisions. This assay was developed by [employer] and distributed under an Emergency Use Authorization (EUA) granted by the FDA for the qualitative detection of SARS-CoV-2 nucleic acid. Provider and patient fact sheets can be found at https://www.fda.gov/media/946996/download and https://www.fda.gov/media/099045/download. Test Performed by [facility], [address] [place], [place] [id number] [place] [address] Work Phone: CT Abdomen Pelvis W Contrast on 11-02-2020 Patient Name: CHAY TEAGUE [facility] ACCESSION EXAM DATE/TIME PROCEDURE ORDERING PROVIDER [id number] 11/02/2020 17:[address] Abdomen/Pelvis w/ IV [id number] JAME DEGROOT Contrast (IV Onl CPT code 49002 Q9967 Reason For Exam (CT Abdomen/Pelvis w/ [...] Phone: [facility], [facility] Incoming Radiology Results From [facility] - 11/02/2020 6:01 PM EST [facility]: [id number] ACCESSION EXAM DATE/TIME PROCEDURE ORDERING PROVIDER [id number] 11/02/2020 17:[address] Abdomen/Pelvis w/ IV [id number] JAME DEGROOT Contrast (IV Onl CPT code 11424 Q9967 Reason For Exam (CT Abdomen/Pelvis w/ [...] WO Contraston 2020 [facility]: [id number] ACCESSION EXAM DATE/TIME PROCEDURE ORDERING PROVIDER [id number] 11/02/2020 17:[address] Head or Brain w/o [id number] -JAME BEST Contrast CPT code 82720 Reason For Exam (CT Head or Brain [...] ischemic and atrophic changes. Report Dictated on Workstation: KATALINA --- Final --- Dictating Physician: MD WARNER WENDELL Signed Date and Time: 11/02/2020 5:36 pm Signed by: MD WARNER WENDELL Transcribed Date and Time: 11/02/2020 5:37 [facility] Work Phone: Jt, [facility] Incoming Radiology Results From [facility] - 11/02/2020 5:37 PM EST Patient Name: CHAY TEAGUE Computed Tomography ACCESSION EXAM DATE/TIME PROCEDURE ORDERING PROVIDER [id number] 11/02/2020 17:[address] Head or Brain w/o [id number] -JAME BEST Contrast CPT code 71026 Reason For Exam (CT Head or Brain [...] ischemic and atrophic changes. Report Dictated on Workstation: KATALINA --- Final --- Dictating Physician: MD WARNER WENDELL Signed Date and Time: 11/02/2020 5:36 pm Signed by: MD WARNER WENDELL Transcribed Date and Time: 11/02/2020 5:37 [facility] Work Phone: CTA Chest W WO (PE study)on 11-02-2020 [id number] Comput[facility] Tomography ACCESSION EXAM DATE/TIME PROCEDURE ORDERING PROVIDER [id number] 11/02/2020 17:36 EST CTA Chest w/ + w/o [id number] -JAME BEST Contrast CPT code 39108 Reason For Exam (CTA Chest w/ + [...] Phone: Jt, [facility] In[facility] Results [facility] - 11/02/2020 5:51 PM EST Patient Name: CHAY TEAGUE Computed Tomography ACCESSION EXAM DATE/TIME PROCEDURE ORDERING PROVIDER [id number] 11/02/2020 17:36 EST CTA Chest w/ + w/o [id number] -GEORGE BESTER Contrast CPT code 75055 Reason For Exam (CTA Chest w/ + [...] and Time: 11/02/2020 5:51 [facility] Work Phone: Comprehensive Metabolic Pane skylar 11-02-2020 Albumin [Mass/Vol] 3.8 g/dL 3.5 - 5 g/dL [facility] Work Phone: ALP [Catalytic activity/Vol] 113 U/L 38 - 126 U/L [facility] Work Phone: ALT [Catalytic activity/Vol] 22 U/L 0 - 34 U/L [facility] Work Phone: Comment on above: The ALT test is perf ormed by an updated assay method. Please note that the reference intervals have been changed and are now sex specific. Anion gap [Moles/Vol] 7 mmol/L [facility] Work Phone: AST [Catalytic activity/Vol] 42 U/L 15 - 46 U/L [facility] Work Phone: Bilirubin Ql (U) 0.5 mg/dL 0.2 - 1.3 mg/dL [facility] Work Phone: Calcium [Mass/Vol] 9.1 mg/dL 8.4 - 10. 4 mg/dL [facility] Work Phone: [phone] Chloride [Moles/Vol] 102 mmol/L 98 - 10 7 mmol/L [facility] Work Phone: CO2 [Moles/Vol] 29 mmol/L 22 - 30 mmol/L [facility] Work Phone: [phone] Creatinine [Mass/Vol] 1.02 mg/dL 0.52 - 1.25 mg/dL [facility] Work Phone: EGFR IF NonAfrican [place] Islander 52.8 mL/min Abnormal >60 [facility] Work Phone: Comment on above: KDIGO [...] rate/Area] 61.2 mL/min/{1.73_m2} >60 [facility] Work Phone: ) 222 Glucose [Mass/Vol] 100 mg/dL 70 - 100 mg/dL [facility] Work Phone: 222 Interpretation and review of laboratory results Abnormal [facility] Work Phone: 222 Potassium [Moles/Vol] 3.3 mmol/L Low 3.5 - 5.1 mmol/L [facility] Work Phone: 222 Protein [Mass/Vol] 7.0 g/dL 6.3 - 8.2 g/dL [facility] Work Phone: 222 Sodium [Moles/Vol] 138 mmol/L 135 - 145 mmol/L [facility] Work Phone: ) 222 Urea nitrogen [Mass/Vol] 16 mg/dL 7 - 20 mg/dL [facility] Work Phone: 222 Hemogram (CBC) w/Auto Diffon 11-02-2020 Absolute Baso # 0.1 10*3/uL 0 - 0.2 10*3/uL [facility] Work Phone: ) 222 Absolute Neut # 5.4 10*3/uL 1.8 - 7 10*3/uL [facility] Work Phone: ) 222 Basophils/100 WBC (Bld) 0.7 % 0 - 2 % [facility] Work Phone: 222 Eosinophils (Bld) [#/Vol] 0.3 10*3/uL 0 - 0.5 10*3/uL [facility] Work Phone: ) 222 Eosinophils/100 WBC (Bld) 3.2 % 1 - 6 % [facility] Work Phone: ) 222 Erythrocyte distribution width (RBC) [Ratio] 14.7 % High 11.5 - 14.5 % [facility] Work Phone: 1() 222 Granulocytes/100 WBC (Bld) 54.6 % 40 - 80 % [facility] Work Phone: () 222 Hematocrit (Bld) [Volume fraction] 40.5 % 35 - 47 % [facility] Work Phone: () 222 Hemoglobin (Bld) [Mass/Vol] 13.4 g/dL 11.7 - 16 g/dL [facility] Work Phone: [phone] Interpretation and review of laboratory results Abnormal [facility] Work Phone: 1() 222 Lymphocytes (Bld) [#/Vol] 3.2 10*3/uL 1 - 4.3 10*3/uL [facility] Work Phone: () 222 Lymphocytes/100 WBC (Bld) 32.4 % 20 - 40 % [facility] Work Phone: () 222 MCH (RBC) [Entitic mass] 29.7 pg 26 - 34 pg [facility] Work Phone: () 222 MCHC (RBC) [Mass/Vol] 33.2 % 32 - 36 % [facility] Work Phone: () 222 MCV (RBC) [Entitic vol] 89.5 fL 79 - 98 fL [facility] Work Phone: ) 222 Monocytes (Bld) [#/Vol] 0.9 10*3/uL High 0 - 0.8 10*3/uL [facility] Work Phone: () 222 Monocytes/100 WBC (Bld) 9.1 % 2 - 10 % [facility] Work Phone: () 222 Platelet mean volume (Bld) [Entitic vol] 9.0 fL 7.4 - 10.4 fL [facility] Work Phone: () 222 Platelets (Bld) [#/Vol] 295 10*3/uL 140 - 440 10*3/uL [facility] Work Phone: () 222 RBC (Bld) [#/Vol] 4.53 10*6/uL 3.8 - 5.2 10*6/uL [facility] Work Phone: () 222 WBC (Bld) [#/Vol] 9.9 10*3/uL 3.6 - 10.7 10*3/uL [facility] Work Phone: [phone] Test Performed by [employer] [facility], [address] [place], [place] [address] [facility] Work Phone: [phone] Lactic Acid, Plasmaon 2020 Lactate [Moles/Vol] 1.4 mmol/L 0.7 - 2 mmol/L [facility] Work Phone: [phone] Otheron 11-02-2020 Test Performed by [employer] [facility], [address] [place], [place] [address] [facility] Work Phone: [phone] Test Performed by [employer] [facility], [address] [place], [place], [place] [address] [facility] Work Phone: [phone] Protime-INRon 11-02-2020 INR Coag (PPP) [Relative time] {INR} [facility] Work Phone: [phone] Comment on above: Recommended Anticoag ulant Therapy: [...] - 12 s [facility] Work Phone: [phone] Comment on above: . Test Performed by [employer], [address] [place], [place] [address] [facility] Work Phone: Troponin x1on 11-02-2020 Troponin I.cardiac [Mass/Vol] ng/mL 0 - 0.034 ng/mL [facility] Work Phone: Comment on above: . Culture, Urineon 03-08-2020 Bacteria identified Cx Nom (U) No growth (<1,000 CFU/ml). [facility], [place] Test Performed by [employer], [address] [place] [address] [place] CBCon 03-07-2020 Erythrocyte distribution width (RBC) [Ratio] 15.4 % High 11.5 - 14.5 % [place] Hematocrit (Bld) [Volume fraction] 38.1 % 35 - 47 % [place] Hemoglobin (Bld) [Mass/Vol] 12.7 g/dL 11.7 - 16 g/dL [place] Interpretation and review of laboratory results Abnormal [place] MCH (RBC) [Entitic mass] 29.9 pg 26 - 34 pg [place] MCHC (RBC) [Mass/Vol] 33.4 % 32 - 36 % [place] MCV (RBC) [Entitic vol] 89.5 fL 79 - 98 fL [place] Platelet mean volume (Bld) [Entitic vol] 8.7 fL 7.4 - 10.4 fL [place] Platelets (Bld) [#/Vol] 248 10*3/uL 140 - 440 10*3/uL [place] RBC (Bld) [#/Vol] 4.26 10*6/uL 3.8 - 5.2 10*6/uL [place] WBC (Bld) [#/Vol] 6.2 10*3/uL 3.6 - 10.7 10*3/uL [place] Test Performed by [facility], [address] [place], [place], [place] [address] [place] Comprehensive Metabolic Pane l w/ Reflex to MGon 03-07-2020 Albumin [Mass/Vol] 3.5 g/dL 3.5 - 5 g/dL [place] ALP [Catalytic activity/Vol] 125 U/L 38 - 126 U/L [place] ALT [Catalytic activity/Vol] 31 U/L 0 - 34 U/L [place] Comment on above: The ALT test is perf ormed by an updated assay method. Please note that the reference intervals have been changed and are now sex specific. Anion gap [Moles/Vol] 10 mmol/L [place] AST [Catalytic activity/Vol] 45 U/L 15 - 46 U/L [place] Bilirubin Ql (U) 0.6 mg/dL 0.2 - 1.3 mg/dL [place] Calcium [Mass/Vol] 8.3 mg/dL Low 8.4 - 10. 4 mg/dL [place] Chloride [Moles/Vol] 107 mmol/L 98 - 10 7 mmol/L [place] CO2 [Moles/Vol] 27 mmol/L 22 - 30 mmol/L [place] Creatinine [Mass/Vol] 0.76 mg/dL 0.52 - 1.25 mg/dL [place] EGFR IF NonAfrican [place]er 75.7 mL/min >60 [place] Comment on above: KDIGO guidelines pro [...] MDRD (S/P/Bld) [Vol rate/Area] 87.8 mL/min/{1.73_m2} >60 [place] Glucose [Mass/Vol] 101 mg/dL High 70 - 100 mg/dL [place] Potassium [Moles/Vol] 3.7 mmol/L 3.5 - 5.1 mmol/L [place] Protein [Mass/Vol] 6.6 g/dL 6.3 - 8.2 g/dL [place] Sodium [Moles/Vol] 144 mmol/L 135 - 145 mmol/L [place] Urea nitrogen [Mass/Vol] 15 mg/dL 7 - 20 mg/dL [place] ECHO Complete 2D W Doppler W Coloron 03-07-2020 TRANSTHORACIC ECHOCARDIOGRAM PATIENT: Chay Teague STUDY DATE: 03/07/2020 : 1945 AGE: 74 HT/WT: 160 cm (63 90.7 kg in) (199.6 lb) GENDER: F BP: 160 / 101 LOCATION: [facility] PATIENT Observation [facility] STATUS: *ORDERING PHYSICIAN: * Delia Chavez *READING PHYSICIAN: * John Whitlock MD, *CASING WRINGER OPERATOR: * Skye Garcia [facility] INDICATIONS: TIA CONCLUSIONS SUMMARY: 1. Left [...] range. Electronically signed by John Whitlock MD, [facility] 03/07/2020 12:07 Prior Signatures: [facility], [place] Jt, [facility] Incoming Cardiology Results From [facility] - 03/07/2020 12:08 PM EDT TRANSTHORACIC ECHOCARDIOGRAM PATIENT: Chay Teague STUDY DATE: 03/07/2020 : 1945 AGE: 74 HT/WT: 160 cm (63 90.7 kg in) (199.6 lb) GENDER: F BP: 160 / 101 LOCATION: [facility] PATIENT Observation [facility] STATUS: *ORDERING PHYSICIAN: * Delia Chavez *READING PHYSICIAN: * John Whitlock MD, *CASING WRINGER OPERATOR: * Skye Garcia [facility] INDICATIONS: TIA CONCLUSIONS SUMMARY: 1. Left [...] RA area, ES, A4C 14 cm^2 10 Right ventricle Value 06/04/2018 Reference RV ID, minor axis, ED, A4C 3.9 cm 2.5 - 4.1 base RV ID, minor axis, ED, A4C (H) 3.7 cm 1.9 - 3.5 mid TAPSE, 2D 2.2 cm 1.7 - 3.1 Legend: (L) and (H) john values outside specified reference range. 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1945 Requested By: EMILY REESE Order Number: [id number] Reading : Niels Reese Measurements Intervals Jeremiah Rate: 95 P: 70 ND: 176 QRS: -36 QRSD: 120 T: 45 QT: 388 QTc: 488 Interpretive Statements SINUS RHYTHM PROBABLE LEFT ATRIAL ABNORMALITY IVCD, CONSIDER ATYPICAL RBBB Compared to ECG 03/06/2017 15:56:33 No significant changes Electronically Signed On 03-07-2020 16:39:39 EDT by Niels Reese [facility]SA[facility] SPRINGSGreenBytes Jt, [facility] Incoming Cardiology Results From [facility] - 03/07/2020 4:40 PM EDT [facility] Test Date: 2020-03-06 Pat Name: Chay Teague Department: Room: 453 Gender: F Goat Driver: 2014 : 1945 Requested By: EMILY REESE Order Number: [id number] Reading GREG Reese Measurements Intervals Jeremiah Rate: 95 P: 70 ND: 176 QRS: -36 QRSD: 120 T: 45 QT: 388 QTc: 488 Interpretive Statements SINUS RHYTHM PROBABLE LEFT ATRIAL ABNORMALITY IVCD, CONSIDER ATYPICAL RBBB Compared to ECG 03/06/2017 15:56:33 No significant changes Electronically Signed On 03-07-2020 16:39:39 EDT by Niels Reese [facility] FOLATEon 03-07-2020 Folate 18.4 ng/mL 2.8 - 20 ng/mL [place] Hemoglobin A1con 03-07-2020 eAG 111 mg/dL [place] HbA1c (Bld) [Mass fraction] 5.5 % 4 - 5.7 % [place] Comment on above: --HgbA1C levels may not be accurate in patients who have renal disease, received recent blood transfusions, are anemic, or who have dyshemoglobinemia. Test Performed by [facility], [address], [place], [place] [address] [place] Lipid panel - fastingon 02-20 Cholesterol [Mass/Vol] 193 mg/dL <200 [place] Cholesterol in HDL [Mass/Vol] 56 mg/dL 40 - 60 mg/dL [place] Cholesterol in LDL [Mass/Vol] 107 mg/dL Abnormal <100 [place] Cholesterol.total/Chol esterol in HDL [Mass ratio] 3 {ratio} [place] Comment on above: Ref Range: < 3 Low Risk for CHD 3-6 Mod Risk for CHD > 6 High Risk for CHD Triglyceride [Mass/Vol] 148 mg/dL <150 [place] MRA head without contrast (R [facility] IMAGING OBTAIN IN THE LAST 2 yrs, to determine indication )on 03-07-2020 Patient Name: CHAY TEAGUE ---MRI--- Exam Date/Time 03/07/2020 11:13:52 EDT Exam MRA Head w/o Contrast Ordering Physician DELIA PIÑA Accession Number [id number] CPT4 Codes 41797 () Reason For Exam acute confusion Report [...] NICHOLAS Transcribed Date and Time: 03/07/2020 12:14 [place] Jt, [facility] Incoming Radiology Results From [facility] - 03/07/2020 12:14 PM EDT Patient Name: HCAY TEAGUE ---MRI--- Exam Date/Time 03/07/2020 11:13:52 EDT Exam MRA Head w/o Contrast Ordering Physician DELIA PIÑA Accession Number [id number] CPT4 Codes 32123 () Reason For Exam acute confusion Report [...] NICHOLAS Transcribed Date and Time: 03/07/2020 12:14 [place] MRI brain with and without c ontrast (REVIEW IMAGING RECORDS IN THE LAST 2 YRS to determine INDICATION prior to oder )on 03-07-2020 J[facility], [facility] Incoming Radiology Results From [facility] - 03/07/2020 12:14 PM EDT Patient Name: CHAY TEAGUE ---MRI--- Exam Date/Time 03/07/2020 11:13:30 EDT Exam MRI Brain w/ + w/o Contrast Ordering Physician DELIA PIÑA Accession Number [id number] CPT4 Codes 07653 () Reason For Exam acute confusion Report [...] NICHOLAS Transcribed Date and Time: 03/07/2020 12:14 [place] Patient Name: CHAY TEAGUE ---MRI--- Exam Date/Time 03/07/2020 11:13:30 EDT Exam MRI Brain w/ + w/o Contrast Ordering Physician DELIA PIÑA Accession Number [id number] CPT4 Codes 20882 () Reason For Exam acute confusion Report [...] NICHOLAS Transcribed Date and Time: 03/07/2020 12:14 [place] Otheron 03-07-2020 Test Performed by [facility], [address] Interpretation and review of laboratory results Abnormal [place] Test Performed by [facility], [address] [place], [address] TSH without Reflexon 020 TSH Qn 2.668 u[IU]/mL 0.465 - 4.68 u[IU]/mL [place] Test Performed by [facility], [address] [place], [address] Troponinon 03-07-2020 Troponin I.cardiac [Mass/Vol] 0.013 ng/mL 0 - 0.034 ng/mL [place] Comment on above: . Test Performed by [facility], [address] [place], [address] Vitamin B12on 03-07-2020 Cobalamin (Vitamin B12) [Mass/Vol] 343 pg/mL 239 - 931 pg/mL [place] Add On Lab Teston 03-06-2020 Sodium [Moles/Vol] Accepted [place] Comment on above: Specimen available & acceptable for analysis. Test Performed by [facility], [address] [place] , [address] Ammoniaon 03-06-2020 Ammonia (P) [Mass/Vol] 13 umol/L 9 - 3 0 umol/L [place] Test Performed by [facility], [address], [place], [place] [address] [place] Brain Natriuretic Peptideon 03-06-2020 Natriuretic peptide B (Bld) [Mass/Vol] 65 pg/mL 0 - 450 pg/mL [place] CBC Auto Differentialon 02-20 Absolute Baso # 0.1 10*3/uL 0 - 0.2 10*3/uL [place] Absolute Neut # 4.8 10*3/uL 1.8 - 7 10*3/uL [place] Basophils/100 WBC (Bld) 0.8 % 0 - 2 % [place] Eosinophils (Bld) [#/Vol] 0.3 10*3/uL 0 - 0.5 10*3/uL [place] Eosinophils/100 WBC (Bld) 3.7 % 1 - 6 % [place] Erythrocyte distribution width (RBC) [Ratio] 15.3 % High 11.5 - 14.5 % [place] Granulocytes/100 WBC (Bld) 58.5 % 40 - 80 % [place] Hematocrit (Bld) [Volume fraction] 38.6 % 35 - 47 % [place] Hemoglobin (Bld) [Mass/Vol] 13.3 g/dL 11.7 - 16 g/dL [place] Interpretation and review of laboratory results Abnormal [place] Lymphocytes (Bld) [#/Vol] 2.2 10*3/uL 1 - 4.3 10*3/uL [place] Lymphocytes/100 WBC (Bld) 27.0 % 20 - 40 % [place] MCH (RBC) [Entitic mass] 30.2 pg 26 - 34 pg [place] MCHC (RBC) [Mass/Vol] 34.5 % 32 - 36 % [place] MCV (RBC) [Entitic vol] 87.4 fL 79 - 98 fL [place] Monocytes (Bld) [#/Vol] 0.8 10*3/uL 0 - 0.8 10*3/uL [facility] [place] Monocytes/100 WBC (Bld) 10.0 % 2 - 10 % [place] Platelet mean volume (Bld) [Entitic vol] 9.1 fL 7.4 - 10.4 fL [place] Platelets (Bld) [#/Vol] 302 10*3/uL 140 - 440 10*3/uL [place] RBC (Bld) [#/Vol] 4.42 10*6/uL 3.8 - 5.2 10*6/uL [place] WBC (Bld) [#/Vol] 8.2 10*3/uL 3.6 - 10.7 10*3/uL [place] Test Performed by [facility], [address] [place] [address] CT HEAD WO CONTRASTon 2019 Patient Name: CHAY TEAGUE ---CT--- Exam Date/Time 03/06/2020 13:04:[address] Head or Brain w/o Contrast Ordering Physician MD HUGH, EMILY Rice Accession Number [id number] CPT4 Codes 06338 () Reason For Exam Altered mental status [...] JASON Transcribed Date and Time: 03/06/2020 1:13 [place] [facility] Incoming Radiology Results From [facility] - 03/06/2020 1:13 PM EDT Patient Name: CHAY TEAGUE ---CT--- Exam Date/Time 03/06/2020 13:04:[address] Head or Brain w/o Contrast Ordering Physician MD REESE GREGORY M Accession Number [id number] CPT4 Codes 18461 () Reason For Exam Altered mental status [...] JASON Transcribed Date and Time: 03/06/2020 1:13 [place] Comprehensive Metabolic Pane skylar 03-06-2020 Albumin [Mass/Vol] 4.0 g/dL 3.5 - 5 g/dL [place] ALP [Catalytic activity/Vol] 135 U/L High 38 - 126 U/L [place] ALT [Catalytic activity/Vol] 27 U/L 0 - 34 U/L [place] Comment on above: The ALT test is perf ormed by an updated assay method. Please note that the reference intervals have been changed and are now sex specific. Anion gap [Moles/Vol] 8 mmol/L [place], [place] AST [Catalytic activity/Vol] 43 U/L 15 - 46 U/L [place] Bilirubin Ql (U) 0.7 mg/dL 0.2 - 1.3 mg/dL [place] Calcium [Mass/Vol] 9.1 mg/dL 8.4 - 10. 4 mg/dL [place] Chloride [Moles/Vol] 103 mmol/L 98 - 10 7 mmol/L [place] CO2 [Moles/Vol] 29 mmol/L 22 - 30 mmol/L [place] Creatinine [Mass/Vol] 0.83 mg/dL 0.52 - 1.25 mg/dL [place] EGFR IF NonAfrican [place] Islander 68.1 mL/min >60 [place] Comment on above: KDIGO guidelines pro [...] MDRD (S/P/Bld) [Vol rate/Area] 78.9 mL/min/{1.73_m2} >60 [place] Glucose [Mass/Vol] 116 mg/dL High 70 - 100 mg/dL [place] Interpretation and review of laboratory results Abnormal [place] Potassium [Moles/Vol] 3.1 mmol/L Low 3.5 - 5.1 mmol/L [place] Protein [Mass/Vol] 7.6 g/dL 6.3 - 8.2 g/dL [place] Sodium [Moles/Vol] 140 mmol/L 135 - 145 mmol/L [place] Urea nitrogen [Mass/Vol] 22 mg/dL High 7 - 20 mg/dL [place] Lactic Acid, Plasmaon 2019 Lactate [Moles/Vol] 1.4 mmol/L 0.7 - 2 mmol/L [place] Otheron 03-06-2020 Test Performed by [facility], [address] , [address] Test Performed by [facility], [address] , [address] Troponinon 03-06-2020 Troponin I.cardiac [Mass/Vol] ng/mL 0 - 0.034 ng/mL [place] Comment on above: . Test Performed by [facility], [address], [place], [place] [address] [place] [address] Troponin I.cardiac [Mass/Vol] ng/mL 0 - 0.034 ng/mL [place] Comment on above: . Urinalysison 03-06-2020 Appearance (U) Clear Clear NA [place] Comment on above: . Bacteria, UA Few (1-5) Abnormal Negative /[HPF] [place] Comment on above: . Bilirubin Urine Negative Negative mg/dL [place] Comment on above: . Color (U) LIGHT YELLOW Lt. Yellow NA [place] Comment on above: . Glucose, Ur Normal Normal (<70) mg/dL [place] Comment on above: . Interpretation and review of laboratory results Abnormal [place] Ketones Ql (U) Negative Negative mg/dL [place] Comment on above: . LEUKOCYTES, UA 250 Abnormal Negative Jennifer/uL [place] Comment on above: . Nitrite, Urine Negative Negative NA [place] Comment on above: . Non-Squamous Epithelial 0-2 Abnormal Negative /[HPF] [place] Comment on above: . Occult Blood,Urine 0.1 mg/dL Abnormal Negative [place] Comment on above: . pH (U) 5.5 [pH] [place] Comment on above: . Protein (U) [Mass/Vol] Negative Negat alli mg/dL [place] Comment on above: . RBC (U) [#/Vol] Negative 0 - 2 /[HPF] [place] Comment on above: . Specific [place], Urine 1.017 [place] Comment on above: . Squam Epithel, UA 0-2 3 - 5 /[HPF] [place] Comment on above: . Urobilinogen, Urine Normal Normal (0-1) mg/dL [place] Comment on above: . Volume 8-12 ml [place] Comment on above: . WBC, UA 3-5 0 - 5 /[HPF] [place] Comment on above: . Test Performed by [facility], [address] [place] [address] , [address] XR ABDOMEN (KUB) (SINGLE AP VIEW)on 03-06-2020 Patient Name: CHAY TEAGUE ---Diagnostic Radiology--- Exam Date/Time 03/06/2020 21:54:29 EDT Exam CR Abdomen AP Ordering Physician MD LEBRON PRAMOD Accession Number [id number] CPT4 Codes 02972 () Reason For Exam abdominal pain Report EXAM: CR Abdomen AP INDICATION: Abdominal pain; left upper quadrant pain; history of gastric fundoplication VIEWS: AP COMPARISON: 10/21/2019 pelvis TIME: 21:27 FINDINGS AND IMPRESSION: The bowel gas pattern is nonspecific with moderate fecal retention. The hemidiaphragms are excluded from [id number]. Report Dictated on --- Final --- Dictating Physician: MD MCDERMOTT JENNIFER R Signed Date and Time: 03/06/2020 9:59 pm Signed by: MD MCDERMOTT JENNIFER R Transcribed Date and Time: 03/06/2020 10:01 [place], [facility] Incoming Radiology Results From [facility] - 03/06/2020 10:01 PM EDT Patient Name: CHAY TEAGUE ---Diagnostic Radiology--- Exam Date/Time 03/06/2020 21:54:29 EDT Exam CR Abdomen AP Ordering Physician MD LEBRON PRAMOD Accession Number [id number] CPT4 Codes 73347 () Reason For Exam abdominal pain Report EXAM: CR Abdomen AP INDICATION: Abdominal pain; left upper quadrant pain; history of gastric fundoplication VIEWS: AP COMPARISON: 10/21/2019 pelvis TIME: 21:27 FINDINGS AND IMPRESSION: The bowel gas pattern is nonspecific with moderate fecal retention. The hemidiaphragms are excluded from [id number]. Report Dictated on --- Final --- Dictating Physician: MD MCDERMOTT JENNIFER R Signed Date and Time: 03/06/2020 9:59 pm Signed by: MD MCDERMOTT JENNIFER R Transcribed Date and Time: 03/06/2020 10:01 [place], [place] XR CHEST PORTABLEon 03-06-20 [facility], [facility] Incoming Radiology Results From [facility] - 03/06/2020 1:18 PM EDT Patient Name: CHAY TEAGUE ---Diagnostic Radiology--- Exam Date/Time 03/06/2020 12:50:01 EDT Exam CR Chest Portable Ordering Physician MD REESE GREGORY Accession Number [id number] CPT4 Codes 95564 () Reason For Exam Shortness of breath [...] JASON Transcribed Date and Time: 03/06/2020 1:18 [place], [place] Patient Name: CHAY TEAGUE ---Diagnostic Radiology--- Exam Date/Time 03/06/2020 12:50:01 EDT Exam CR Chest Portable Ordering Physician MD REESE GREGORY M Accession Number [id number] CPT4 Codes 16744 () Reason For Exam Shortness of breath [...] JASON Transcribed Date and Time: 03/06/2020 1:18 [place], [place] CBC Auto DifferentialOrdered By: Cytnhia Uribe on 08-31-2019 Absolute Baso # 0.1 10*3/uL 0 - 0.2 10*3/uL [facility] Work Phone: Absolute Neut # 5.3 10*3/uL 1.8 - 7 10*3/uL [facility] Work Phone: Basophils/100 WBC (Bld) 0.7 % 0 - 2 % [facility] Work Phone: Eosinophils (Bld) [#/Vol] 0.3 10*3/uL 0 - 0.5 10*3/uL [facility] Work Phone: Eosinophils/100 WBC (Bld) 3.0 % 1 - 6 % [facility] Work Phone: Erythrocyte distribution width (RBC) [Ratio] 14.7 % High 11.5 - 14.5 % [facility] Work Phone: Granulocytes/100 WBC (Bld) 59.4 % 40 - 80 % [facility] Work Phone: [phone] Hematocrit (Bld) [Volume fraction] 42.8 % 35 - 47 % [facility] Work Phone: [phone] Hemoglobin (Bld) [Mass/Vol] 14.4 g/dL 11.7 - 16 g/dL [facility] Work Phone: [phone] Interpretation and review of laboratory results Abnormal [facility] Work Phone: [phone] Lymphocytes (Bld) [#/Vol] 2.6 10*3/uL 1 - 4.3 10*3/uL [employer] Work Phone: [phone] Lymphocytes/100 WBC (Bld) 28.6 % 20 - 40 % [facility] Work Phone: [phone] MCH (RBC) [Entitic mass] 30.7 pg 26 - 34 pg [facility] Work Phone: [phone] MCHC 33.5 % 32 - 36 % [facility] Work Phone: [phone] MCV (RBC) [Entitic vol] 91.6 fL 79 - 98 fL [employer] Work Phone: [phone] Monocytes (Bld) [#/Vol] 0.7 10*3/uL 0 - 0.8 10*3/uL [facility] Work Phone: [phone] Monocytes/100 WBC (Bld) 8.3 % 2 - 10 % [facility] Work Phone: [phone] Platelet mean volume (Bld) [Entitic vol] 9.0 fL 7.4 - 10.4 fL [facility] Work Phone: [phone] Platelets (Bld) [#/Vol] 273 10*3/uL 140 - 440 10*3/uL [facility] Work Phone: 1() 222 RBC (Bld) [#/Vol] 4.67 10*6/uL 3.8 - 5.2 10*6/uL [facility] Work Phone: [phone] WBC (Bld) [#/Vol] 9.0 10*3/uL 3.6 - 10.7 10*3/uL [employer] Work Phone: [phone] Performed by [facility], [address] , [place], [place] [address] [facility] Work Phone: [phone] Comprehensive Metabolic Pane lOrdered By: Cynthia Uribe on 08-31-2019 Albumin [Mass/Vol] 4.0 g/dL 3.5 - 5 g/dL [facility] Work Phone: [phone] ALP [Catalytic activity/Vol] 134 U/L High 38 - 126 U/L [facility] Work Phone: [phone] ALT [Catalytic activity/Vol] 34 U/L 13 - 69 U/L [facility] Work Phone: [phone] Anion gap [Moles/Vol] 12 mmol/L [facility] Work Phone: [phone] AST [Catalytic activity/Vol] 31 U/L 15 - 46 U/L [facility] Work Phone: 222 Bilirubin [Mass/Vol] 0.3 mg/dL 0.2 - 1 .3 mg/dL [facility] Work Phone: [phone] Calcium [Mass/Vol] 9.3 mg/dL 8.4 - 10. 4 mg/dL [facility] Work Phone: 222 Chloride [Moles/Vol] 102 mmol/L 98 - 10 7 mmol/L [facility] Work Phone: 222 CO2 [Moles/Vol] 29 mmol/L 22 - 30 mmol/L [facility] Work Phone: 222 Creatinine [Mass/Vol] 1.17 mg/dL 0.52 - 1.25 mg/dL [facility] Work Phone: [phone] EGFR IF NonAfrican [place] Islander 44.9 mL/min >60 [facility] Work Phone: [phone] Comment on above: Source- MDRD equatio n with creatinine calibration to IDMS(NKDEP) eGFR not recommended for drug dose adjustment GFR/1.73 sq M.predicted among blacks MDRD (S/P/Bld) [Vol rate/Area] 54.5 mL/min/{1.73_m2} >60 [facility] Work Phone: [phone] Glucose [Mass/Vol] 109 mg/dL High 70 - 100 mg/dL [facility] Work Phone: [phone] Interpretation and review of laboratory results Abnormal [facility] Work Phone: 1 Potassium [Moles/Vol] 3.7 mmol/L 3.5 - 5.1 mmol/L [facility] Work Phone: 1 Protein [Mass/Vol] 7.4 g/dL 6.3 - 8.2 g/dL [facility] Work Phone: [phone] Sodium [Moles/Vol] 142 mmol/L 135 - 145 mmol/L [facility] Work Phone: [phone] Urea nitrogen [Mass/Vol] 29 mg/dL High 7 - 20 mg/dL [facility] Work Phone: 1 Test Performed by [employer] [facility], [address] [place] [address] [facility] Work Phone: 1 TSH without ReflexOrdered By : Cynthia Uribe on 08-31-2019 TSH 2.584 u[IU]/mL 0.465 - 4.68 u[IU]/mL [facility] Work Phone: 1 Test Performed by [employer] [facility], [address] [place], [place] [address] [facility] Work Phone: 1 Vitamin D 25 HydroxyOrdered By: Cynthia Uribe on 08-31-2019 Interpretation and review of laboratory results Abnormal [facility] Work Phone: 1 Vit D, 25-Hydroxy 26 ng/mL Low 30 - 100 ng/mL [facility] Work Phone: 1 Comment on above: Therapy is based on measurement of Total 25-OHD with the following classification levels: Less than 20 ng/mL: Indicative of Vit D deficiency 20-30 ng/mL: Suggests Vit D insufficiency Optimal: Greater than or equal to 30 ng/mL Test performed by [employer] Immunoassay, measuring Total Vitamin D, not individual fractions. Test Performed by [employer] [facility], [address], [place], [place] [address] [facility] Work Phone: [phone] TSH without Reflexon 019 TSH Qn 3.036 u[IU]/mL 0.465 - 4.68 u[IU]/mL [facility], [place] Test Performed by [facility], [address] , [place], [place] [address] [facility], [place] MG Breast Tomosynthesis Diag joaquintic Righton 03-09-2019 MG Breast Tomosynthesis Diagnostic Right Patient Name: CHAY TEAGUE Mammography Exam Date/Time 03/09/2019 07:49:43 EDT Exam MG Breast Tomosynthesis Uni Ordering Physician MD JOJO, CYNTHIA Accession Number [id number] CPT4 Codes 90197 (MG Breast Tomosynthesis Right), 54269 (MG MAMMO 2D DIAGNOSTIC) Reason For Exam [...] 17, 2019, bilateral screening mammogram performed at [facility]. February 17, 2019, bilateral MG breast tomosynthesis bl scr performed at [facility]] at [facility]. August 18, 2017, bilateral MG breast tomosynthesis bl scr performed at [facility]] at [facility]. November 22, 2010, bilateral mammogram. TISSUE [...] images: BB's = Nipples; skin lesions Open false pass = Palpable Line = Scar US BREAST LIMITED RIGHT: MARCH 09, 2019 - Standard views. 2D digital mammography and tomosynthesis imaging were performed and reviewed with CAD. ASSESSMENT: Category 3 Probably benign (Overall) RECOMMENDATION: Ultrasound of the right breast in 6 months. . Report Dictated on Final Signed Date and Time: 03/09/2019 8:57 am Signed by: MD TAN KERISTEN L [facility] US Breast Limited Righton US Breast Limited Right Patient Name: CHAY TEAGUE Ultrasound Exam Date/Time 03/09/2019 08:41:27 EDT Exam US Breast Limited Right Ordering Physician MD URIBE DIANA Accession Number [id number] CPT4 Codes 82850 () Reason For Exam Other abnormal and [...] 17, 2019, bilateral screening mammogram performed at [facility]. February 17, 2019, bilateral MG breast tomosynthesis bl scr performed at [facility]3] at [facility]. August 18, 2017, bilateral MG breast tomosynthesis bl scr performed at [facility]3] at [facility]. November 22, 2010, bilateral mammogram. TISSUE [...] images: BB's = Nipples; skin lesions Open false pass = Palpable Line = Scar US BREAST LIMITED RIGHT: MARCH 09, 2019 - Standard views. 2D digital mammography and tomosynthesis imaging were performed and reviewed with CAD. ASSESSMENT: Category 3 Probably benign (Overall) RECOMMENDATION: Ultrasound of the right breast in 6 months. . Report Dictated on Final Signed Date and Time: 03/09/2019 8:57 am Signed by: MD TAN KERISTEN L Normal [facility] Basic Metabolic Panelon 12-1 Anion gap molar conc 7 Normal [facility] Comment on above: Performed By: #### H VILLA, BMP3 #### [address] Calcium mass conc 8.8 mg/dL Normal 8.4-10.4 [facility] Comment on above: Performed By: #### H VILLA BMP3 #### [facility] [address], [place] CO2 molar conc 23 mmol/L Normal 22-30 [facility] Comment on above: Performed By: #### H VILLA BMP3 #### [place] [address] [address], [place] Creatinine mass conc 0.85 mg/dL Normal 0.52-1.25 [facility] Comment on above: Performed By: #### H VILLA BMP3 #### [place] [address] [address], [place] GFR/1.73 sq M predicted among blacks MDRD vol rate/area (S/P/Bld) mL/min/{1.73_m2} Normal >60 [facility] Comment on above: Performed By: #### H VILLA BMP3 #### [place] [address] [address], [place] GFR/1.73 sq M predicted among non-blacks MDRD vol rate/area (S/P/Bld) mL/min/{1.73_m2} Normal >60 [facility] Comment on above: Result Comment: Sour ce- MDRD equation with creatinine calibration to IDMS(NKDEP) eGFR not recommended for drug dose adjustment Performed By: #### H VILLA BMP3 #### [place] [address] [address], [place] Glucose mass conc 100 mg/dL Normal 70-100 [facility] Comment on above: Performed By: #### H VILLA BMP3 #### [place] [address] [address], [place] Urea nitrogen mass conc 14 mg/dL Normal 7-20 [facility] Comment on above: Performed By: #### H VILLA BMP3 #### [place] [address] [address], [place] Chloride molar conc 109 mmol/L High 98-107 [facility] Comment on above: Performed By: #### H EMDF, BMP3 #### [facility] [address] [place] [address] Potassium molar conc 3.7 mmol/L Normal 3.5-5.1 [facility] Comment on above: Performed By: #### H EMDF, BMP3 #### [facility] [address] [place] [address] Sodium molar conc 140 mmol/L Normal 135-145 [facility] Comment on above: Result Comment: NOTE : New Sodium Reference Range effective 2018 @ 10:00 Performed By: #### H EMDF BMP3 #### [facility] [address] [place] [address] CR Chest Portableon 09-08-20 18 CR Chest Portable Patient Name: CHAY TEAGUE Diagnostic Radiology Exam Date/Time 09/08/2018 16:21:12 EST Exam CR Chest Portable Ordering Physician MD ANTONI, TRA Knutson Accession Number [id number] CPT4 Codes 94234 () Reason For Exam fall Report PORTABLE [...] and Time: 09/08/2018 4:57 Normal [facility] CR Wrist Complete 3 Views Le fton 09-08-2018 CR Wrist Complete 3 Views Left Patient Name: CHAY TEAGUE Diagnostic Radiology Exam Date/Time 09/08/2018 16:21:12 EST Exam CR Wrist Complete 3 Views Left Ordering Physician MD CORRALES DAVID C. Accession Number [id number] CPT4 Codes 63387 () Reason For Exam fall, open fracture [...] and Time: 09/08/2018 4:56 Normal [facility] CT Head or Brain w/o Gavin henriquez 09-08-2018 CT Head or Brain w/o Contrast Patient Name: CAHY TEAGUE CT Exam Date/Time 09/08/2018 16:04:[address] Head or Brain w/o Contrast Ordering Physician MD CORRALES DAVID C. Accession Number [id number] CPT4 Codes 83006 () Reason For Exam fall, on anticoagulation [...] and Time: 09/08/2018 4:40 Normal [facility] CT Spine Cervical w/o Contra ston 09-08-2018 CT Spine Cervical w/o Contrast Patient Name: CHAY TEAGUE CT Exam Date/Time 09/08/2018 16:05:[address] Spine Cervical w/o Contrast Ordering Physician MD ANTONI, TRA Knutson Accession Number [id number] CPT4 Codes 03922 () Reason For Exam C-SPINE TRAUMA, NEXUS/CCR [...] and Time: 09/08/2018 4:43 Normal [facility] ED Provider Noteon 8 Protein mass conc [...] capsule by mouth daily VITAMIN D (ERGOCALCIFEROL) 22662 UNITS CAPSULE Take 1 capsule by mouth [...] arranged. Patient's daughter 100 be seen by [facility] in [place]. We will give her referral to Dr. [...] Emergency Medicine Provider Tra Corrales MD 09/08/18 8099 Normal [facility] Hemogram w/ Autodiffon 09-08 Abs Baso Cnt 0.1 10*3/uL Normal 0.0-0.2 [facility] Comment on above: Performed By: #### H EMDF, BMP3 #### [facility] [address] [place] [address] Abs Neutrophile Cnt 5.8 10*3/uL Normal 1.8-7.0 [facility] Comment on above: Performed By: #### H EMDF, BMP3 #### [facility] [address] [place] [address] Basophils/100 WBC (Bld) 0.7 % Normal 0.0-2.0 [facility] Comment on above: Performed By: #### H EMDF, BMP3 #### [place] [address] [place] [address] Eosinophils #/vol (Bld) 0.2 10*3/uL Normal 0.0-0.5 [facility] Comment on above: Performed By: #### H EMDF, BMP3 #### [place] [address] [place] [address] Eosinophils/100 WBC (Bld) 2.3 % Normal 1.0-6.0 [facility] Comment on above: Performed By: #### H EMDF, BMP3 #### [place] [address] [place] [address] Erythrocyte distribution width Ratio (RBC) 14.9 % High 11.5-14.5 [facility] Comment on above: Performed By: #### H EMDF, BMP3 #### [place] [address] [place] [address] Granulocytes/100 WBC (Bld) 69.6 % Normal 40.0-80.0 [facility] Comment on above: Performed By: #### H EMDF, BMP3 #### [place] [address] [place] [address] Hematocrit Volume Fraction (Bld) 41.2 % Normal 35.0-47.0 [facility] Comment on above: Performed By: #### H EMDF, BMP3 #### [address] [address] Hemoglobin mass conc (Bld) 13.5 g/dL Normal 11.7-16.0 [facility] Comment on above: Performed By: #### H EMDF, BMP3 #### [facility] [address] [place] [address] Lymphocytes #/vol (Bld) 1.7 10*3/uL Normal 1.0-4.3 [facility] Comment on above: Performed By: #### H EMDF, BMP3 #### [facility] [address] [place] [address] Lymphocytes/100 WBC (Bld) 20.5 % Normal 20.0-40.0 [facility] Comment on above: Performed By: #### H EMDF, BMP3 #### [facility] [address], [place] MCH Entitic mass (RBC) 30.8 pg Normal 26.0-34.0 [facility] Comment on above: Performed By: #### H EMDF, BMP3 #### [facility] [address], [place] MCHC mass conc (RBC) 32.9 % Normal 32.0-36.0 [facility] Comment on above: Performed By: #### H EMDF, BMP3 #### [facility] [address], [place] MCV Entitic volume (RBC) 93.6 fL Normal 79.0-98.0 [facility] Comment on above: Performed By: #### H EMDF, BMP3 #### [facility] [address], [place] Monocytes #/vol (Bld) 0.6 10*3/uL Normal 0.0-0.8 [facility] Comment on above: Performed By: #### H EMDF, BMP3 #### [facility] [address], [place] Monocytes/100 WBC (Bld) 6.9 % Normal 2.0-10.0 [facility] Comment on above: Performed By: #### H EMDF, BMP3 #### [facility] [address], [place] Platelet mean volume Entitic volume (Bld) 9.0 fL Normal 7.4-10.4 [facility] Comment on above: Performed By: #### H EMDF, BMP3 #### [facility] [address] [place] [address] Platelets #/vol (Bld) 212 10*3/uL Normal 140-440 [facility] Comment on above: Performed By: #### H EMDF, BMP3 #### [facility] [address] [place] [address] RBC #/vol (Bld) 4.40 10*6/uL Normal 3.80-5.20 [facility] Comment on above: Performed By: #### H EMDF, BMP3 #### [facility] [address] [place] [address] WBC #/vol (Bld) 8.4 10*3/uL Normal 3.6-10.7 [facility] Comment on above: Performed By: #### H EMDF, BMP3 #### [facility] [address] [place] [address] CNCOon 09-02-2017 CNCO Letter Uri damon [address] [place], [place] [address]Jfxvh: [phone]: [phone]: 09/02/2017Provider: Hayley Geronimo,We have received a referral [...] you to please call our office at [phone], option 5 and we willassist you in scheduling your exam.Sincerely,Clifford Crane MD Normal [facility] Vital Signs Date Time Vital Sign Value [...] 11-02-2020 18:04-0500 BP Diastolic 95 mm[Hg] Jame Best ANTON Work Phone: 11-02-2020 18:04-0500 BP Systolic 124 mm[Hg] Jame PANCHALA Work Phone: 11-02-2020 18:04-0500 Pulse (Heart Rate) 102 /min Jame PANCHALA Work Phone: 11-02-2020 18:04-0500 Pulse Oximetry 99 % Jame PANCHALA Work Phone: 11-02-2020 15:23-0500 Body Temperature 97.39 [degF] Jame PANCHALA Work Phone: 11-02-2020 15:23-0500 Respiratory Rate 18 /min Jame PANCHALA Work Phone: 11-02-2020 13:38-0500 BP Diastolic 58 mm[Hg] Jame PANCHALA Work Phone: 11-02-2020 13:38-0500 BP Systolic 134 mm[Hg] Jame PANCHALA Work Phone: 11-02-2020 13:36-0500 Body Temperature 98.71 [degF] Jame PANCHALA Work Phone: 11-02-2020 13:36-0500 Pulse (Heart Rate) 103 /min Jame PANCHALA Work Phone: 11-02-2020 13:36-0500 Pulse Oximetry 100 % Jame PANCHALA Work Phone: 11-02-2020 13:36-0500 Respiratory Rate 22 /min Jame PANCHALA Work Phone: 03-09-2020 08:35-0400 Pulse Oximetry 94 % Emily Reese [facility] , [place] 03-09-2020 08:26-0400 Body Temperature 97.9 [degF] Emily Reese [facility] [place] 03-09-2020 08:26-0400 BP Diastolic 90 mm[Hg] Emily [facility] , [place] 03-09-2020 08:26-0400 BP Systolic 146 mm[Hg] Emily Dennis [facility] , [place] 03-09-2020 08:26-0400 Pulse (Heart Rate) 90 /min [facility] 03-09-2020 08:26-0400 Respiratory Rate 18 /min [facility] [place] 03-06-2020 17:21-0400 BMI (Body Mass Index) 35.43 kg/m2 [facility] 03-06-2020 17:21-0400 Body weight 90.72 kg [facility] [place] Comment on above: per 08/2019 office visit 03-06-2020 17:0400 Height 160 cm [facility] [place] Comment on above: per 08/2019 office visit 01-22-2020 14:28-0400 Body Temperature 97.4 [degF] Scott Jimenez [facility] Work Phone: 01-22-2020 14:28-0400 BP Diastolic 78 mm[Hg] Scott Barbara [facility] Work Phone: 01-22-2020 14:28-0400 BP Systolic 126 mm[Hg] Scott Barbara [facility] Work Phone: 01-22-2020 14:28-0400 Pulse (Heart Rate) 86 /min Scott Barbara [facility] Work Phone: 01-22-2020 14:28-0400 Pulse Oximetry 95 % Scott Barbara [facility] Work Phone: 01-22-2020 14:28-0400 Respiratory Rate 32 /min Scott Barbara [facility] Work Phone: Encounters Encounter Date Encounter Type Care Provider Facility Start: 05-09-2025 ambulatory Saurabh Jim Garcia ty:[facility] Start: 04-08-2025 ambulatory Saurabh Jim Garcia ty:[facility] Start: 03-03-2025 ambulatory Saurabh Jim Garcia ty:[facility] Start: 02-16-2025 ambulatory Saurbah MANJARREZ Facili ty:[facility] Start: 12-09-2024 End: 12-09-2024 ambulatory Saurabh Fernandez MD [facility] Work Phone: Start: 12-09-2024 End: 12-09-2024 Departed Referred Saurabh Fernandez MD -[facility] Start: 12-09-2024 Registered Referred Saurabh Fernandez MD -[facility] Start: 12-09-2024 End: 12-09-2024 ambulatory Saurabh MANJARREZ Facility:[facility] Start: 11-22-2024 End: 11-22-2024 ambulatory Saurabh Fernandez MD [facility] Work Phone: Start: 11-22-2024 End: 11-22-2024 Departed Referred Saurabh Fernandez MD -[facility] Start: 11-22-2024 Registered Referred Saurabh Fernandez MD -[facility] Start: 11-22-2024 End: 11-22-2024 ambulatory Saurabh MANJARREZ Facility:[facility] Start: 11-17-2024 End: 11-17-2024 ambulatory Saurabh Fernandez MD [facility] Work Phone: Start: 11-17-2024 End: 11-17-2024 Departed Referred Saurabh Fernandez MD -[facility] Start: 11-17-2024 End: 11-17-2024 ambulatory Saurabh MANJARREZ Facility:[facility] Start: 11-10-2024 ambulatory Saurabh MANJARREZ Facili ty:[facility] Start: 11-10-2024 Registered Referred Saurabh Fernandez MD -[facility] Start: 09-16-2024 ambulatory Saurabh MANJARREZ Facili ty:[facility] Start: 09-16-2024 Registered Referred Saurabh Fernandez MD -[facility] Start: 08-30-2024 End: 08-30-2024 Departed Referred Saurabh Fernandez MD -[facility] Start: 08-30-2024 End: 08-30-2024 ambulatory Saurabh Depritao OLS Facility:[facility] Start: 08-09-2024 End: 08-09-2024 ambulatory Saurabh Deperro OLS Facility:[facility] Start: 06-25-2024 End: 06-25-2024 ambulatory Saurabh Depritao OLS Facility:[facility] Start: 06-24-2024 End: 06-24-2024 ambulatory Saurabh Depritao OLS Facility:[facility] Start: 06-07-2024 End: 06-07-2024 ambulatory Saurabh Depritao OLS Facility:[facility] Start: 10-16-2023 End: 10-16-[address] [facility] Work Phone: Start: 10-16-2023 End: 10-16-2023 Departed Referred [facility] Start: 09-29-2023 End: 09-29-2023 ambulatory [facility] Work Phone: Start: 09-29-2023 End: 09-29-2023 Departed Referred [facility] Start: 09-01-2023 End: 09-01-[address] [facility] Work Phone: Start: 09-01-2023 End: 09-01-[address] [facility] Start: 07-24-2023 End: 07-24-[address] [facility] Work Phone: Start: 07-24-2023 End: 07-24-[address] [facility] Start: 06-30-2023 End: 06-30-[address] [facility] Work Phone: Start: 06-30-2023 End: 06-30-[address] [facility] Start: 05-01-2023 End: 05-01-[address] [facility] Work Phone: Start: 05-01-2023 End: 05-01-[address] [facility] Start: 04-07-2023 End: 04-07-[address] [facility] Work Phone: Start: 04-07-2023 End: 04-07-[address] [facility] Start: 02-06-2023 End: 02-06-[address] [facility] Start: 01-13-2023 End: 01-13-[address] [facility] Work Phone: Start: 01-13-2023 End: 01-13-[address] [facility] Start: 11-14-2022 End: 11-14-[address] [facility] Work Phone: Start: 11-14-2022 End: 11-14-[address] [facility] Start: 11-14-2022 Registered Referred [facility] Start: 10-21-2022 End: 10-21-[address] [facility] Work Phone: Start: 10-21-2022 End: 10-21-[address] [facility] Start: 08-23-2022 End: 08-23-[address] [facility] Work Phone: Start: 08-23-2022 End: 08-23-[address] [facility] Start: 08-23-2022 Registered Referred [facility] Start: 08-22-2022 End: 08-22-[address] [facility] Work Phone: Start: 08-22-2022 End: 08-22-[address] [facility] Start: 08-22-2022 Registered Referred [facility] Start: 07-29-2022 End: 07-29-[address] [facility] Work Phone: Start: 07-29-2022 End: 07-29-2022 Departed Referred [facility] Start: 07-29-2022 Registered Referred [facility] Start: 07-24-2022 End: 07-24-2022 ambulatory [facility] Work Phone: Start: 07-24-2022 End: 07-24-2022 Departed Referred [facility] Start: 06-06-2022 End: 06-24-2022 Evaluation and management of inpatient [facility] Facility:[facility] Start: 06-05-2022 End: 06-06-2022 Emergency department patient visit CYNTHIA URIBE Facility:[facility] Start: 06-05-2022 Admission to establishment Mundo Bailey [employer] Work Phone: [facility] Start: 06-05-2022 ambulatory Mundo conley [employer] Work Phone: [facility] Comment on above: Psychiatric Problem Start: 08-30-2021 Chart Update Referring Prov ider Unknown -[facility] Work Phone: Start: 08-29-2021 Office outpatient vi sit 15 minutes Referring Provider Unknown -[facility] Work Phone: Start: 05-10-2021 End: 05-10-2021 Subsequent hospital visit by physician Cynhtia Uribe MD Work Phone: [facility] Comment on above: Vitamin D deficiency ; Recurrent depression (HCC); Essential hypertension; Other specified hypothyroidism; Mild intermittent asthma without complication Start: 11-02-2020 End: 11-02-2020 Emergency department patient visit Jame Best Work Phone: [facility] ED Comment on above: Altered mental statu s, unspecified altered mental status type (Primary Dx); Shortness of breath; Lower extremity edema; Abdominal pain, right lower quadrant; Gallstones Start: 03-06-2020 End: 03-09-2020 Evaluation and management of inpatient Emily Hugh Work Phone: [facility] [employer] Comment on above: Delirium (Primary [...] and Pelvi s W contrast IV Jame A [employer] Work Phone: Start: 11-02-2020 Ct angiography chest w/contrast/noncontrast Jame A [employer] Work Phone: Start: 11-02-2020 Ct head/brain w/o co ntrast material Jame A [employer] Work Phone: Start: 11-02-2020 Assay of lactate Jame A [employer] Work Phone: Start: 11-02-2020 Assay of troponin quantitative Jame A [employer] Work Phone: Start: 11-02-2020 Blood count complete auto&auto difrntl wbc Jame A [employer] Work Phone: Start: 11-02-2020 Comprehensive metabo lic panel Jame A [employer] Work Phone: Start: 11-02-2020 COVID-19, RAPID Jame A [employer] Work Phone: Start: 11-02-2020 Natriuretic peptide Tyl er A [employer] Work Phone: Start: 11-02-2020 Prothrombin time Jame A [employer] Work Phone: Start: 11-02-2020 Ecg routine ecg w/le ast 12 lds w/i&r Jame Farfan Nasir Work Phone: Start: 03-07-2020 Mri brain brain stem w/o w/contrast material Delia Chavez Work Phone: Start: 03-07-2020 Mra head w/o contrst material Delia Chavez Work Phone: Start: 03-07-2020 Echo tthrc r-t 2d w/wom-mode compl spec&colr d Delia Chavez Work Phone: Start: 03-07-2020 Assay of folic acid serum Dleia Chavez Work Phone: Start: 03-07-2020 Assay of [...] Phone: Start: 03-06-2020 Assay of lactate Jeremy Reese Work Phone: Start: 03-06-2020 Assay [...] Author Start: 06-05-2025 DIABETES SCREEN DIABETES SCREEN [facility] Start: 05-23-2022 Influenza vaccination INFLUENZA (#1) [facility] Start: 05-10-2022 Creatinine measurement Creatinine mo nitoring [facility] Work Phone: Start: 05-10-2022 Potassium monitoring Potassium monit oring [facility] Work Phone: Start: 11-02-2021 Creatinine measurement Creatinine mo nitoring [facility] Work Phone: Start: 11-02-2021 Potassium monitoring Potassium monit oring [facility] Work Phone: Start: 09-22-2021 ADVANCE DIRECTIVE DISCUSSION ADVANCE DIRECTIVE DISCUSSION [facility] Start: 09-10-2021 End: 09-10-2021 Telemedicine consultation with patient 09/10/2021 Telemedicine Family Medicine Cynthia Uribe MD [address] [place], [place] [id number] [facility] Start: 05-23-2021 Influenza vaccination Flu vaccine (# 1) [facility] Work Phone: Start: 03-07-2021 Creatinine measurement Creatinine mo nitoring [place], [place] Start: 03-07-2021 Potassium monitoring Potassium monit [place], [place] Start: 08-31-2020 Creatinine monitoring Creatinine mon [facility] Work Phone: Start: 08-31-2020 [facility] Start: 05-23-2020 Influenza vaccination Flu vacc ine (Season Ended) [place], [place] Start: 11-09-2019 Creatinine monitoring Creatinine mon [place], [place] Start: 11-09-2019 Potassium monitoring Potassium monit [place], [place] Start: 05-23-2019 Influenza vaccination Flu vaccine (# 1) [place] Start: 03-09-2019 Annual Wellness Visi t (AWV) Annual Wellness Visit (AWV) [employer] Work Phone: Start: 2008 BONE DENSITY BONE DENSITY [facility] Start: 2008 DEXA (modify frequen cy per FRAX score) DEXA (modify frequency per FRAX score) [place] Start: 2008 PNEUMOCOCCAL: 65+ (1 - PCV) PNEUMOCOCCAL: 65+ (1 - PCV) [facility] Start: 2006 Annual Wellness Visi t (AWV) Annual Wellness Visit (AWV) [place] Start: 1998 Screening for osteoporosis DEXA (modify frequency per FRAX score) [place] Start: 1993 Shingles Vaccine (1 of 2) Shingles Vaccine (1 of 2) [place], [place] Start: 1993 SHINGRIX VACCINE (1 of 2) SHINGRIX VACCINE (1 of 2) [facility] Start: 1962 DTaP/Tdap/Td vaccine (1 - Tdap) DTaP/Tdap/Td vaccine (1 - Tdap) [place], [place] Start: 1962 Urine microalbumin profile DTAP,TDAP,TD (1 - Tdap) [facility] Start: 1959 COVID-19 Vaccine (1 of 2) COVID-19 Vaccine (1 of 2) [employer] Work Phone: Start: 1954 DTaP/Tdap/Td vaccine (1 [...] for 1 Occurrences starting 11/02/2020 until 11/02/2020 [employer] Work Phone: Comment on above: Once for 1 Occurrenc es starting 11/02/2020 until 11/02/2020 Culture, Blood 1 [employer] [place] End: 11-02-2020 Culture, Blood 1 Culture, Blood 1 Microbiology STAT One Time for 1 Occurrences starting 11/02/2020 until 11/02/2020 [employer] Work Phone: Comment on above: One Time for 1 Occur rences starting 11/02/2020 until 11/02/2020 Culture, Blood 2 [facility] [place] End: 11-02-2020 Culture, Blood 2 Culture, Blood 2 Microbiology STAT One Time for 1 Occurrences starting 11/02/2020 until 11/02/2020 [employer] Work Phone: Comment on above: One Time for 1 Occur rences starting 11/02/2020 until 11/02/2020 EKG 12 Lead - Chest Pain EKG 12 Lead - Chest Pain ECG STAT 11/02/2020 1:34 PM EST [employer] Work Phone: End: 11-02-2020 Hemogram (CBC) w/Auto Diff Hemogram (CBC) w/Auto Diff Lab STAT One Time for 1 Occurrences starting 11/02/2020 until 11/02/2020 [employer] Work Phone: Comment on above: One Time for 1 Occur rences starting 11/02/2020 until 11/02/2020 Initiate Oxygen Ther apy Protocol Initiate Oxygen Therapy Protocol Respiratory Care Routine Daily until discontinued starting 03/06/2020 [facility] [place] Comment on above: Daily until disconti nued starting 03/06/2020 End: 11-02-2020 Lactic Acid, Plasma [employer] Work Phone: Comment on above: One Time for 1 Occur rences starting 11/02/2020 until 11/02/2020 End: 11-02-2020 Miscellaneous Sendout 1 [employer] Work Phone: Comment on above: One Time for 1 Occur rences starting 11/02/2020 until 11/02/2020 End: 11-02-2020 Protime-INR [employer] Work Phone: Comment on above: One Time [...] adults) Microbiology STAT 11/02/2020 3:33 PM EST [employer] Work Phone: End: 11-02-2020 Troponin x1 [employer] Work Phone: Comment on above: One Time [...] Immunization Date Immunization Notes Care Provider Ruben anaya 08-31-2020 influenza, high dose seasonal, preservative-free Jame Best [employer] Work Phone: 06-16-2018 influenza, high dose seasonal, preservative-free [facility] [place] 08-07-2017 influenza, high dose seasonal, preservative-free [facility] [place] 03-26-2017 pneumococcal polysaccharide vaccine, 23 valent Cynthia [facility], [place] 11-11-2016 pneumococcal conjuga te vaccine, 13 valent Cynthia [facility], [place] 10-16-2016 influenza, high dose seasonal, preservative-free Cynthia Uribe MD Work Phone: [employer] Work Phone: Payers Date Payer Category Payer Self-pay 2021 Medicaid [employer] [employer] [place] [employer] [id number] 2021-Present [phone] [address] [place] [address] Medicaid [id number] 2021 Medicare [place] [employer] [facility] MEDICARE [id number] 2021-Present [phone] [address] [place] [address] Medicare [id number] 2021 Medicare [id number] 2021 Unknown [id number] 2017 Unknown [employer] C[employer] SUPP xxxxxxxxxxxx 2017-Present [address] [place] [address] xxxxxxxxxxxx [id number] 2017 Unknown [employer] SUPP [id number] 2017-Present [address] [place] [address] [id number] 2014 Medicare MEDICARE MEDICAR E PART A AND B xxxxxxxxxxx 2014-Present [phone] [place] [address] xxxxxxxxxxx [id number] 2014 Medicare [id number] Unknown Unknown [id number] Unknown [id number] Unknown [id number] Unknown [id number] Unknown [id number] Unknown [id number] Unknown [id number] Unknown [id number] Unknown [id number] Unknown [id number] Unknown [id number] Unknown [id number] Unknown [id number] Unknown [id number] Unknown [id number] Social History Date Type Detail Facility Start: 08-31-2019 End: 03-07-2020 Tobacco smoking status NHIS Former smoker [place] End: 09-22-1984 History of tobacco use Current smoker [place] End: 09-22-1984 History of tobacco use Cigarette Smoker [place] Start: 08-31-2019 End: 03-07-2020 Alcohol intake Current non-drinker of alcohol (finding) [employer] Work Phone: Start: 1945 Sex Assigned At Not on file [place] Start: 11-02-2020 End: 05-10-2021 Tobacco use and exposure Never used [employer] Work Phone: Start: 05-26-2022 End: 06-05-2022 Exposure to SARS-CoV-2 (event) Not sure [employer] Work Phone: Start: 11-09-2018 Alcohol intake No [place], [place] Former smoker Former smoker [facility] Work Phone: Start: 06-05-2022 Tobacco smoking status [facility] Tobacco smoking consumption unknown [facility] Start: 1945 Sex Assigned At Female [facility] Start: 12-23-2024 End: 12-23-2024 Sex Female (finding) [facility] NEGATED: Highlighted row - - [facility] [...] health issues are not documented Disease [facility] Work Phone: Clinical Notes 08-28-2021 to 06-24-2022 [facility] - Destiney HiJACINTO - 06/05/2022 11:39 PM EDT Note Date & Type Note Facility 06-24-2022 Note HNO ID: [id number] Author: LATRICE Munoz Service: Social Work Author Type: Sales Planning Analyst Type: Plan of Care Filed: 06/24/2022 1:44 [...] 06/28/22 Progress Towards Short Term Goals: Progressing Cafeteria Operator Goals: Patient will have improved insight into illness;Patient will have achieved optimal level of functioning;Patient will verbalize benefits of compliance with medication and treatment after discharge Target Date Cafeteria Operator Goals: 07/01/22 Progress Towards Care Home Goals: Progressing Interventions - Nursing: Offer frequent [...] 06/27/22 Progress Towards Short Term Goals: Progressing Cafeteria Operator Goals: Patient will demonstrate optimal level of functioning;Patient/support system will verbalize intent to comply with medication and treatment after discharge;Patient expresses examples of optimism and hope for the future Target Date Cafeteria Operator Goals: 06/29/22 Progress Towards Cafeteria Operator Goals: Progressing Interventions - Nursing: Obtain baseline [...] to build insig (more content not included)... [facility] 06-24-2022 Note HNO ID: [id number] Author: Robyn Roman RN Service: Psychiatry Author [...] 06/26/22 Progress Towards Short Term Goals: Progressing Care Home Goals: Patient will have improved insight into illness;Patient will have achieved optimal level of functioning;Patient will verbalize benefits of compliance with medication and treatment after discharge;Patient will participate in cognitive, physical and social activities;Patient will display nonviolent behavior towards others, with aid of medication and supportive therapy Target Date Care Home Goals: 06/28/22 Progress Towards Cafeteria Operator Goals: Progressing Interventions - Nursing: Offer frequent [...] grounding techniques and (more content not included)... [facility] 06-24-2022 Note HNO ID: [id number] Author: John Penny MD Service: Psychiatry Author Type: Physician Type: Progress Notes Filed: 06/24/2022 8:16 AM Note Text: INPATIENT PROGRESS NOTE PSYCHIATRY PATIENT: Chay Teague DATE OF SERVICE: June 24, 2022 The Interdisciplinary team met and reviewed treatment goals and discharge planning GERONIMO COMPLANT: Seen in day area Improving Discussed [...] PO. Will continue to monitor." Scarlett Snider Sales Planning Analyst most recent and updated notes is reviewed. [...] Date Value 05/23 (more content not included)... [facility] 06-23-2022 Note HNO ID: [id number] Author: Trisha Mcgill MD Service: Psychiatry Author [...] tab(s) (ZyPREXA) 5 mg ORAL BID 9a/5p DATA: Diagnostic tests [...] DATE: June 23, 2022 TIME: 8:22 PM [facility] 06-21-2022 Note HNO ID: [id number] Author: Trisha Mcgill MD Service: Psychiatry Author [...] DATE: June 21, 2022 TIME: 9:24 PM [facility] 06-21-2022 Note HNO ID: [id number] Author: Teo López RN Service: Behavioral Health [...] 06/26/22 Progress Towards Short Term Goals: Progressing Care Home Goals: Patient will have improved insight into illness;Patient will have achieved optimal level of functioning;Patient will verbalize benefits of compliance with medication and treatment after discharge;Patient will participate in cognitive, physical and social activities;Patient will display nonviolent behavior towards others, with aid of medication and supportive therapy Target Date Cafeteria Operator Goals: 06/28/22 Progress Towards Care Home Goals: Progressing Interventions - Nursing: Offer frequent [...] activities to ch (more content not included)... [facility] 06-19-2022 Note HNO ID: [id number] Author: Trisha Mcgill MD Service: Psychiatry Author [...] DATE: June 19, 2022 TIME: 11:54 PM [facility] 06-19-2022 Note HNO ID: [id number] Author: Teo López RN Service: Behavioral Health [...] 06/26/22 Progress Towards Short Term Goals: Progressing Cafeteria Operator Goals: Patient will have improved insight into illness;Patient will have achieved optimal level of functioning;Patient will participate in cognitive, physical and social activities;Patient will display nonviolent behavior towards others, with aid of medication and supportive therapy;Patient will verbalize benefits of compliance with medication and treatment after discharge Target Date Care Home Goals: 06/28/22 Progress Towards Care Home Goals: Progressing Interventions - Nursing: Offer frequent [...] promote grounding techniques (more content not included)... [facility] 06-17-2022 Note HNO ID: [id number] Author: Trisha Mcgill MD Service: Psychiatry Author [...] DATE: June 17, 2022 TIME: 11:51 PM [facility] 06-17-2022 Note HNO ID: [id number] Author: Melisa Peña RN Service: Behavioral Health [...] 06/17/22 Progress Towards Short Term Goals: Progressing Care Home Goals: Patient will have improved insight into illness;Patient will have achieved optimal level of functioning;Patient will verbalize benefits of compliance with medication and treatment after discharge;Patient will participate in cognitive, physical and social activities Target Date Cafeteria Operator Goals: 06/19/22 Progress Towards Care Home Goals: Progressing Interventions - Nursing: Offer frequent [...] as needed;Offer constructive (more content not included)... [facility] 06-15-2022 Note HNO ID: [id number] Author: Trisha Mcgill MD Service: Psychiatry Author Type: Physician Type: Progress Notes Filed: 06/16/2022 12:00 AM Note Text: PROGRESS NOTE BEHAVIORAL HEALTH SERVICE DATE: 06/15/2022 SERVICE TIME: 154 The Interdisciplinary team met and reviewed treatment [...] DATE: June 15, 2022 TIME: 11:54 PM [facility] 06-14-2022 Note HNO ID: [id number] Author: John Penny MD Service: Psychiatry Author [...] pudding. " [facility] Sales Planning Analyst most recent and updated notes is reviewed. Pt sleep remains poor, during the day she is visible on unit but confused. She frequently slaps table with open palm and calls out for help for no obvious reason. Pt continues to appear somewhat guarded and distrusting of everyone except on of her daughters. Daughter was able to complete enrollment for [facility] dual advantage, effective date 06/22/22. SW to [...] of which s (more content not included)... [facility] 06-13-2022 Note HNO ID: [id number] Author: John Penny MD Service: Psychiatry Author [...] Patient able to direct. , nonsensical speech." Scarlett Snider Sales Planning Analyst most recent and updated notes is reviewed. ASHLEY faxed clinicals to [facility]. industrial engineering director informed SW that they are not in network with [employer] and only have wanderguard. SW called Pt's daughter to update and she states that she will apply for [employer] and that [facility] remain their first FOC." Medical comorbidity is [...] spend in counseling (more content not included)... [facility] 06-12-2022 Note HNO ID: [id number] Author: Iva Bailey RN Service: Behavioral Health [...] 06/17/22 Progress Towards Short Term Goals: Progressing Care Home Goals: Patient will have improved insight into illness;Patient will have achieved optimal level of functioning;Patient will verbalize benefits of compliance with medication and treatment after discharge;Patient will participate in cognitive, physical and social activities Target Date Cafeteria Operator Goals: 06/19/22 Progress Towards Care Home Goals: Progressing Interventions - Nursing: Offer frequent [...] schedule and encou (more content not included)... [facility] 06-12-2022 Note HNO ID: [id number] Author: John Penny MD Service: Psychiatry Author [...] this morning while in day area." [facility] Sales Planning Analyst most recent and updated notes is reviewed. ASHLEY received return call from [place] in admissions at [facility]. She states that Pt would be coming LTC and would need a PAS (ASHLEY submitted for one and received favorable determination). She provided fax: [phone] for clinical information and her work cell for updates: [phone]. SW to send updated information. " Medical comorbidity [...] spend in c (more content not included)... [facility] 06-11-2022 Note HNO ID: [id number] Author: John Penny MD Service: Psychiatry Author [...] at times, observed patting other Patient's knee. Freelance Translator redirected Patient and educated on appropriate behavior. Patient cooperative with teaching. Med compliant whole in applesauce, but did spit out Colace gel capsule several times due to confusion." [facility] Sales Planning Analyst most recent and updated notes is reviewed. ASHLEY placed call to [facility] admission department. ASHLEY informed admission director was [...] of which s (more content not included)... [facility] 06-10-2022 Note HNO ID: [id number] Author: Melisa Peña RN Service: Behavioral Health [...] 06/10/22 Progress Towards Short Term Goals: Progressing Cafeteria Operator Goals: Patient will have improved insight into illness;Patient will have achieved optimal level of functioning;Patient will verbalize benefits of compliance with medication and treatment after discharge;Patient will participate in cognitive, physical and social activities;Patient will display nonviolent behavior towards others, with aid of medication and supportive therapy Target Date Care Home Goals: 06/14/22 Progress Towards Cafeteria Operator Goals: Progressing Interventions - Nursing: Offer frequent [...] 06/06/22 Time Initiat (more content not included)... [facility] 06-10-2022 Note HNO ID: [id number] Author: John Penny MD Service: Psychiatry Author [...] PO PRN given with good results." [facility] [employer] [facility] Sales Planning Analyst most recent and updated notes is reviewed. [...] FROM THE CHART OR MODIFY PRINTED COPY. [facility] 06-09-2022 Note HNO ID: [id number] Author: Beba Bray MD Service: ? Author [...] DATE: June 09, 2022 TIME: 1:07 PM [facility] 06-09-2022 Note HNO ID: [id number] Author: John Penny MD Service: Psychiatry Author Type: Physician Type: Progress Notes Filed: 06/09/2022 7:17 AM Note Text: INPATIENT PROGRESS NOTE PSYCHIATRY PATIENT: Chay Teague DATE OF SERVICE: June 09, 2022 GERONIMO COMPLANT: Seen in day area [place] 1-HPI: Patient is compliant with medications No adverse reactions to medications Sleep is good 5 hrs Appetite is good Nursing staff updated notes is reviewed. -pleasantly confused [facility] Sales Planning Analyst most recent and updated notes is reviewed. [...] FROM THE CHART OR MODIFY PRINTED COPY. [facility] 06-09-2022 Note HNO ID: [id number] Author: Interface Note Service: ? Author Type: ? Type: Progress Notes Filed: 06/09/2022 1:02 PM Note Text: Epic Scheduled Downtime: 06/09/2022 1:00:00 AM to 06/09/2022 2:07:00 AM [facility] 06-08-2022 Note HNO ID: [id number] Author: Beba Bray MD Service: ? Author [...] DATE: June 08, 2022 TIME: 12:08 PM [facility] 06-08-2022 Note HNO ID: [id number] Author: oJhn Penny MD Service: Psychiatry Author Type: Physician [...] in applesauce" [facility] Sales Planning Analyst most recent and updated notes is reviewed. Pt discussed in treatment team and observed on unit. Pt does appear more alert and organized than on previous day. She will remain inpatient through the weekend. SW to submit PAS on Friday (06/10/22) and follow units with [facility] with updated clinical information" Medical comorbidity is [...] FROM THE CHART OR MODIFY PRINTED COPY. [facility] 06-08-2022 Note HNO ID: [id number] Author: Interface Note Service: ? Author Type: ? Type: Progress Notes Filed: 06/08/2022 3:51 AM Note Text: Epic Scheduled Downtime: 06/08/2022 1:00:00 AM to 06/08/2022 3:36:00 AM [facility] 06-07-2022 Note HNO ID: [id number] Author: Teo López RN Service: Behavioral Health [...] 06/10/22 Progress Towards Short Term Goals: Progressing Cafeteria Operator Goals: Patient will have improved insight into illness;Patient will have achieved optimal level of functioning;Patient will verbalize benefits of compliance with medication and treatment after discharge;Patient will participate in cognitive, physical and social activities;Patient will display nonviolent behavior towards others, with aid of medication and supportive therapy Target Date Cafeteria Operator Goals: 06/14/22 Progress Towards Cafeteria Operator Goals: Progressing Interventions - Nursing: Offer frequent [...] Mood Disorder As (more content not included)... [facility] 06-07-2022 Note HNO ID: [id number] Author: John Penny MD Service: Psychiatry Author [...] to eat all meals. " Scarlett Snider Sales Planning Analyst most recent and updated notes is reviewed. Daughter states that Pt has not responded well to Haldol in the past. She states that Pt was on waitlist for [facility] but following this episode they are willing to take her once stabilized. Daughter is agreeable to SW reaching out and sharing clinical information with [facility] as needed. SW to follow with continued collateral contact and discharge planning as Pt's mental status improves. SW to submit PAS and send [facility] clinical updates once Pt is stabilized." [...] frontal lobe dementi (more content not included)... [facility] 06-06-2022 Note HNO ID: [id number] Author: John Penny MD Service: Psychiatry Author Type: Physician Type: Progress Notes Filed: 06/06/2022 7:00 AM Note Text: HANDP dictated # [id number] JOHN PENNY MD 06/06/2022 [facility] 06-05-2022 Miscellaneous Notes BEHAVIORAL HEALTH INTAKE NOTE SERVICE DATE: 06/06/2022 SERVICE TIME: 12:08AM Nature of the crisis: Confusion Presenting Problem: Chay Teague is a 77 year old female brought in to [place] ED from Home by family for confusion. [...] not steal the car back for her. Freelance Translator attempted interview with pt telephonically. It was [...] information obtained from pt's daughter, Jennifer Hidalgo ([phone]). Daughter reports that pt has underlying dementia, [...] with pt being on the waitlist at [facility]. PAST MEDICAL HISTORY: PAST MEDICAL HISTORY Diagnosis [...] to report How Legal Issues Were Verified: [facility] Home Theatre Technician of Courts Website;U.[place] Department of Justice Sex Offender Website;[facility]'s Sexual Offender Website Gender Specific Test: Not Applicable Sex at Time of : Female Patient Identified Gender: (Unable to assess.) Preferred Pronoun: (Unable to assess.) Sexual Orientation: (Unable to assess.) Cultural/Sikh Concerns Cultural Issues or Concerns That Might Affect Treatment: Unable to assess. Sikh/Spiritual Issues or Concerns That Might Affect Treatment: [...] in interview due to pt symptomatology. Other Fbi Profiler Described Mood: Pt is calm and cooperative, but not interviewable Fbi Profiler: ED LENIN Hill Observed/Reported: Other: See Comment (Unable to assess.) Range of Affect: (Unable to assess.) Sleep: (Unable to assess.) Appetite: (Unable to assess.) Energy: (Unable to assess.) Anxiety/Trauma: (Unable to assess.) Non-Suicidal Self Injury Non-Suicidal Self Injury: (Unable to assess.) Suicidal Ideation Suicidal Ideation: (Pt's daughter denies hearing pt make mention of any SI. Freelance Translator is unable to assess with pt directly.) Homicidal Ideation Homicidal Ideation: (Pt's daughter denies hearing pt make mention of any SI. Freelance Translator is unable to assess with pt directly.) Non-Lethal Harm to Others or Damage/Destruction to Property Harm to Others or Damage/Destruction of Property: (Pt's daughter denies hearing pt make mention of any SI. Freelance Translator is unable to assess with pt directly.) [...] John Penny Admission Status: Full Admit Unit: [address]) Bed#: 692-2 Report Given To: Vitaliy Report Date: 06/06/22 Report Time: 223 Admission Type: Medical Certificate SIGNATURE: JACINTO Castro PATIENT NAME: Chay Teague DATE: June 05, 2022 TIME: 11:39 PM documented in this encounter [facility] 11-10-2021 Note Hospitalist Discharg e Summary Chay [...] follow the di (more content not included)... [facility] Angel Alerts 08-28-2021 History of Presen t illness Narrative [...] more off balance than her normal. -[facility] Work Phone: Evaluation note Diagnosis Vitamin D deficiency Unspecified vitamin D deficiency Recurrent depression (HCC) Major depressive disorder, recurrent episode, unspecified Essential hypertension Unspecified essential hypertension Other specified hypothyroidism Mild intermittent asthma without complication Unspecified asthma documented in this encounter [employer] Phone: Evaluation note* Diagnosis Vitamin D deficiency Unspecified vitamin D deficiency Other specified hypothyroidism documented in this encounter [employer] Phone: Evaluation note* Diagnosis Dementia, senile with delusions, with behavioral disturbance (HCC)- Primary [facility] Work Phone: Reason for referral (narrative)No reason for referral information availableWWilson Memorial Hospital Work Phone: Summary Purpose Family History No Family History Records FoundNo Family History Records FoundNo Family History Records FoundNo Family History Records FoundNo Family History Records FoundNo Family History Records FoundNo Family History Records FoundNo Family History Records FoundNo Family History Records FoundNo Family History Records Found Advance Directives No Advanced Directives Records FoundDocuments on File Type Date Recorded Patient Sanitation Lead Expl anation Advance Directives and Living Will Advance Directives and Living Will 03/14/2017 10:57 AM Power of Lead Javascript Developer 11/09/2018 4:07 PM JEAN PIERRE Hidalgo Latest Code Status on File Code Status Date Activated Date Inactivated Comments DNR-CCA 03/06/2020 5:15 PM DNR-CCA 03/06/2017 8:30 PM 03/09/2017 4:35 PM Documents on File Type Date Recorded Patient Sanitation Lead Expl anation ACP-Advance Directive ACP-Advance Directive 03/14/2017 10:57 AM ACP-Power of Lead Javascript Developer 11/09/2018 4:07 PM P ARMAND Hidalgo Latest Code Status on File Code Status Date Activated Date Inactivated Comments DNR-CCA 03/06/2020 5:15 PM 03/09/2020 3:12 PM Latest Code Status on File Code Status Date Activated Date Inactivated Comments DNR-CCA 03/06/2017 8:30 PM 03/09/2017 4:35 PM Documents on File Type Date Recorded Patient Sanitation Lead Expl anation ACP-Advance Directive ACP-Power of Lead Javascript Developer 11/09/2018 4:07 PM P ARMAND Hidalgo ACP-Advance Directive 03/14/2017 10:57 AM Discharge Instructions * Pharmacy* Lilia Tracey [facility] - 03/07/2020 9:16 AM EDT * Discharge Instr - Lab* Deirdre Storm RN - 03/09/2020 11:36 AM EDT Your physician has ordered skilled home care services for you. Your home care will be provided by: [facility] [phone] * Additional Instructions* John Coe MD - 03/06/2020 Only take the Effexor; Stop taking the Aricept and Buspar; I put in a number for a Delivery Merchandiser if you wish to have the abscess looked at [facility] Dr. Ashraf Learning About Delirium What is delirium? [...] Where can you learn more? Go to [email or web address] and sign in to your [employer] account. Enter Z511 in the Search Health Information box to learn more about Learning About Delirium. If you do not have an account, please click on the "Sign Up Now" link. Current as of: October 22, 2019 Content Version: . [email or web address]. Care instructions adapted under license by [employer]. If you have questions about a medical condition or this instruction, always ask your healthcare professional. [employer] disclaims any warranty or liability for your [...] and the need for follow-up with a physician/POT TENDER/PA after discharge. Discussed the patient s personal [...] through Care Everywhere. * Altered Mental Status (Mongolian) documented in this encounter History of Present Illness * Malka Wen OTA - 03/09/2020 9:32 AM EDT Occupational Therapy Facility/Department: [facility] Daily Treatment Note NAME: Chay Teague : 1945 Date of Service: 03/09/2020 Discharge Recommendations: Subacute/Intermediate Facility Assessment Performance deficits / Impairments: Decreased [...] Timed Code Treatment Minutes: 30 Minutes(2x ADL) Malka Wen, ROHINI/L * Claude Beal RD, LD - 03/08/2020 3:24 PM EDT Discussed with BEER MERCHANT- pt advanced to Dental soft and is appropriate for thin liquids at this time. Initiated chocolate Ensure high protein per MNT protocol. Ensure High Protein provides 160 kcals, 16 gprotein per serving. Will monitor PO intakes for adequacy. RD will continue to follow this patient. * Bozena Shafer PTA - 03/08/2020 2:30 PM EDT Physical Therapy Facility/Department: [facility] Daily Treatment Note NAME: Chay Teague : 1945 Date of Service: 03/08/2020 Discharge Recommendations: Subacute/Intermediate Facility Assessment Assessment: Pt appears more clear [...] 25 Minutes(ther ex and gait) Bozena Shafer, CUSTOMER ENGAGEMENT ANALYST * Meghna Rothman RN - 03/08/2020 11:30 AM EDT Patient up to chair. Chair alarm in place. * Yoly Cooney, RONALD - 03/08/2020 10:47 AM EDT Speech Language Pathology Facility/Department: [facility] Dysphagia Treatment Note NAME: Chay Teague [...] Pain:no current complaint S: Pt was alert, clinical manager home care at bedside. O: Assess advance diet trials. [...] soft. Total Minutes: 24 minutes Yoly Cooney M.A.CCC/BEER MERCHANT Speech-Language Pathologist * John Coe MD - 03/08/2020 9:07 AM EDT Hospitalist Progress Note 03/08/2020 9:07 AM [phone]: Please page [place] [phone] for patient care issues. [phone]: Please page [facility] night Hospitalist for any issues. Subjective: Admit Date: 03/06/2020 PCP: Cynthia Uribe MD Interval History: Pt continues to improve. Per hydroelectric plant mechanical engineer, mentation is near "90 %". Pt more talkative and able to converse with everyone in the room. No overnight issues. DIET DYSPHAGIA PUREED; Mildly Thick (Martinez) Patient Vitals for the past 96 hrs [...] Labial Abscess - Unable to visualize; Outpatient Materials And Processes Manager referral Diagnosis Date Anxiety Asthma Dementia (HCC) Depression History of blood transfusion Hypertension Hypothyroidism Plan - Monitor Mentation - PT/OT -am labs, replace lytes prn -increase activity -DVT prophylaxis: [x] Lovenox [] Heparin [] SCDs [x] Encourage ambulation [] Already on Anticoagulation Advance Directive: DNR-CCA Discharge plannin-48 hours John Coe MD Division of Hospitalist Medicine Inpatient Medical Services PAGER: [phone] * Meghna Rothman RN - 03/08/2020 8:15 AM EDT Spoke with patients daughter Jennifer regarding updates. * Julia Lantigua PT - 03/07/2020 3:13 PM EDT Physical Therapy Facility/Department: [facility] TE[facility] Initial Assessment NAME: Chay Teague : 1945 Date of Service: 03/07/2020 Having reviewed the treatment plan and goals for this patient, I certify that the plan of care below is medically necessary and appropriate. Discharge Recommendations: Subacute/Intermediate Facility PT Equipment Recommendations Other: TBD at [...] has noted cognitive deficits, h/o dementia and [place] which may impact her ability to learn. [...] Ambulation Assistance: Independent Transfer Assistance: Independent Active Grease Maker Head: No Patient's Grease Maker Head Info: Family Mode of Transportation: Car Occupation: [...] recall of recent events;Decreased short term memory;Decreased shelter memory Safety Judgement: Decreased awareness of need [...] for falls, Left in bed, Nurse notified [facility] Score [facility] Inpatient Mobility Raw Score : 10 (03/07/20 1504) [facility] Inpatient T-Scale Score : 32.29 (03/07/20 1504) Mobility Inpatient CMS 0-100% Score: 76.75 (03/07/20 1504) Mobility Inpatient CMS G-Code Modifier : CL (03/07/20 1504) [facility] Mobility Inpatient How much difficulty turning over [...] climbing 3-5 steps with a railing?: Total [facility] Inpatient Mobility Raw Score : 10 [facility] Inpatient T-Scale Score : 32.29 Mobility Inpatient [...] appropriate. Date of Service: 03/07/2020 Discharge Recommendations: Subacute/Intermediate Facility Assessment Performance deficits / Impairments: Decreased [...] Ambulation Assistance: Independent Transfer Assistance: Independent Active Grease Maker Head: No Patient's Grease Maker Head Info: Family Mode of Transportation: Car Occupation: [...] recall of recent events;Decreased short term memory;Decreased emt intermediate memory Safety Judgement: Decreased awareness of need [...] Daily Activity Raw Score: 16 (03/07/20 1505) [facility] Inpatient ADL T-Scale Score : 35.96 (03/07/20 1505) ADL Inpatient CMS 0-100% Score: 53.32 (03/07/20 1505) ADL Inpatient [facility] G-Code Modifier : CK (03/07/20 1505) Goals [...] 03/07/2020 10:49 AM EDT Physical Therapy Facility/Department: [facility] Initial Assessment NAME: Chay Teague : [...] - 03/07/2020 10:01 AM EDT Updated pts daughterJennifer. Via phone * Claude Beal RD, LD - 03/07/2020 9:37 AM EDT Nutrition Assessment Type and Reason for Visit: Initial, Positive Nutrition Screen Nutrition Recommendations: 1. Pt is NPO due to failed nursing swallow screen. BEER MERCHANT consulted for further evaluation. Provide diet textures per BEER MERCHANT recommendation. 2. Will assess PO intake adequacy once diet is advance to determine need for additional ONS. 3. Monitor for timely nutrition progression, wts, and labs. RD will follow. Nutrition Assessment: Pt admit with delirium/AMS. Pt is currently NPO due to failing nursing bedside swallow assessment. BEER MERCHANT consult ordered for further evaluation. 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 Treatment Plan Requires BEER MERCHANT Intervention: Yes Duration/Frequency of Treatment: 3 visits Recommended Diet and Intervention Diet Solids Recommendation: Dysphagia Pureed (Dysphagia I) Liquid Consistency Recommendation: Mildly Thick (Martinez) Recommended Form of Meds: PO Recommendations: Total feed;Assist feed Therapeutic Interventions: Patient/Family education Compensatory Swallowing Strategies Compensatory Swallowing Strategies: Alternate solids and liquids;Upright as possible for all oral intake;External pacing Treatment/Goals Short-term Goals Timeframe for Short-term Goals: 3 visits Goal 1: Pt will tolerate advance trials with BEER MERCHANT. Goal 2: Pt will tolerate puree diet with mildly thick liquids without respiratory distress/symtoms aspiration. Goal 3: Pt will advance to soft diet as tolerated. General Chart Reviewed: Yes Subjective Subjective: funeral greeter visiting at bedside Behavior/Cognition: Lethargic;Requires cueing Respiratory Status: O2 via nasual cannula O2 Device: Nasal cannula Liters of Oxygen: 2 L Communication Observation: Aphasia(fluctuated.) Follows Directions: Simple Dentition: Dentures top;Dentures bottom Patient Positioning: Upright in bed Baseline Vocal Quality: Normal Volitional Swallow: Delayed Prior Dysphagia History: None indicated in [facility] EPIC Consistencies Administered: Dysphagia Minced and Moist (Dysphagia II);Martinez - cup;Thin - cup;Ice Chips Vision/Hearing Vision [...] Patient Education Response: Needs reinforcement Therapy Time BEER MERCHANT Individual Minutes Time In: 1010 Time Out: 1036 Minutes: 26 RONALD Higgins 03/07/2020 1:38 PM * John Coe MD - 03/07/2020 7:34 AM EDT Hospitalist Progress Note 03/07/2020 7:34 AM [phone]: Please page [place] [phone] for patient care issues. [phone]: Please page [facility] night Hospitalist for any issues. Subjective: Admit Date: 03/06/2020 PCP: Cynthia Uribe MD Interval History: Spice Mixer in the room and states mentation is [...] texture, turgor normal. No rashes or lesions Materials And Processes Manager: Unable to visualize cyst given body habitus and lack of speculum (OB-Materials And Processes Manager on discharge recommended). Neurologic: Neurovascularly intact without [...] Labial Abscess - Unable to visualize; Outpatient Materials And Processes Manager referral Diagnosis Date Anxiety Asthma Dementia (HCC) Depression History of blood transfusion Hypertension Hypothyroidism Plan - Monitor Mentation - PT/OT - Materials And Processes Manager referral as outpatient -am labs, replace lytes prn -increase activity -DVT prophylaxis: [x] Lovenox [] Heparin [] SCDs [x] Encourage ambulation [] Already on Anticoagulation Advance Directive: DNR-CCA Discharge planning: TBD John Coe MD Division of Hospitalist Medicine Inpatient Medical Services PAGER: [phone] * Ronda Thomas RN - 03/06/2020 6:56 [...] to beginDysphagia Pureed Diet with Mildly Thick (Martinez) liquids. Proceed to formal Speech Pathologist Swallow [...] section and content) DATE CREATED AUTHOR 03/17/2018 [facility] DATE CREATED AUTHOR AUTHOR'S ORGANIZ ATION 03/09/2019 [facility] DATE CREATED AUTHOR AUTHOR'S ORGANIZ ATION 03/15/2019 [facility] DATE CREATED AUTHOR AUTHOR'S ORGANIZ ATION 08/31/2021 [facility] DATE CREATED AUTHOR AUTHOR'S ORGANIZ ATION 09/18/2021 [facility] DATE CREATED AUTHOR AUTHOR'S ORGANIZ ATION 11/21/2021 [facility] DATE CREATED AUTHOR AUTHOR'S ORGANIZ ATION 06/22/2022 [facility] DATE CREATED AUTHOR AUTHOR'S ORGANIZ ATION 06/25/2022 [facility] DATE CREATED AUTHOR AUTHOR'S ORGANIZ ATION 08/28/2022 [facility] DATE CREATED AUTHOR AUTHOR'S ORGANIZ ATION 05/09/2025 [facility] Reason for Visit (unrecogniz ed section [...] or prosecute any alcohol or drug abuse patient.[facility] Care Teams (unrecognized sec tion and content) Team Status: Inactive Member Role Status Dates Saurabh MANJARREZ MD Attending Provider, Referring Pro vider Active Team Status: Inactive Member Role Status Dates Saurabh MANJARREZ MD Attending Provider Active 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 [facility] provides no warranty or guarantee of the accuracy or completeness of information in this document.
[2025-05-26 08:08] LABS: Hematocrit 42.7 % (37-47); Hemoglobin 13.9 g/dL (12.0-15.0); Immature Granulocytes Count 0.020 X10^3/uL (0.0-0.0); Mean Corp Hgb Conc 32.6 g/dL (32-36); Mean Corpuscular Volume 98.6 fL (81-99); Mean Platelet Vol. 11.8 fl (6.2-12.0); NRBC Flagged by Analyzer 0 % (0-5); Platelet Count 213 K/mm3 (150-450); RBC Distribution Width CV 13.9 % (11.6-14.6); RBC Distribution Width SD 51.1 fl (35.1-43.9); Red Blood Count 4.33 M/mm3 (4.2-5.4); White Blood Count 7.3 K/mm3 (4.4-11.0)
[2025-05-26 08:38] LABS: AST(SGOT) 19 U/L (<=31); Alanine Aminotransfer ALT/SGPT 7 U/L (<=34); Albumin, Serum 3.5 g/dL (3.4-4.8); Alkaline Phosphatase 55 U/L (35-104); Anion Gap 9 (5-15); BUN 19 mg/dL (4-19); BUN/Creat Ratio 23.0 RATIO (10-20); Calcium,Total 9.1 mg/dL (7.6-11.0); Carbon Dioxide 27.6 mmol/L (21.0-32.0); Chloride 106 mmol/L (98-108); Globulin 3.0 g/dL (2.2-4.2); Glucose 80 mg/dL (70-99); Potassium 4.1 mmol/L (3.3-5.1)
[2025-05-26 09:00] LABS: Cholesterol 203 mg/dL (<=200); Low Density Lipoprotein Calc. 126 mg/dL; Triglycerides 148 mg/dL; Very Low Density Lipoprotein 30 mg/dL (5-40); cholesterol:hdl ratio screen 4.28
== END ==
LOC: OLS.ACH 05:00
PROVIDERS: Visit Provider Internal Medicine
DX: I10 Essential (primary) hypertension (principal); E03.9 Hypothyroidism, unspecified; E78.00 Pure hypercholesterolemia, unspecified
CPT/HCPCS: 36415; 80053; 80061; 84443; 85025

== ENCOUNTER → 2025-08-01 | Outpatient (REF) | payer MEDICARE, SELFPAY ==
--- OUTSIDE RECORDS SUMMARY | 2025-08-01 04:19 | XMS RPT_ITS | CCD ---
Author Organization [facility] Care Team Providers Care Manual Tester Name Role Phone Barbara, Scott Unavailable Unavailable Isbell, Keena Unavailable Unavailable Unknown, Referring Provider Unavailable Unav ailable Cynthia Uribe Unavailable Unavailable Cynthia Uribe Primary Care Provider Cynthia Uribe Primary Care Provider [phone] Selin MARIANO, Cynthia Primary Care Provider Unknown, Referring Provider Unavailable Unav ailable Unavailable Unavailable Selin MARIANO, Cynthia Primary Care Provider Selin MARIANO, Cynthia Primary Care Provider CYNTHIA URIBE Primary Care Unavailable JOHN PENNY Admitting Unavailable JOHN PENNY Attending Unavailable CYNTHIA URIBE Primary Care Unavailable BEBA BRAY Unavailable Jim MARIANO, Saurabh Attending Provider Unavailable Jmi MARIANO, Saurabh Referring Provider Unavailable Deperro OLS, [...] hours as needed for Pain 0 Active [id number] 200 actuat albuterol 0.09 mg/actuat metered dose [...] Substituted for Budesonide-Formote rol (SYMBICORT). Handicap Placard [facility] [place] (5 sources) Start: 08-31-2019 Handicap Placard [facility] [place] Indications: Mild intermittent asthma without complication by [...] reach optimal image enhancement. polyethylene glycol 3350 35066 mg powder for oral solution (1 source) [...] 10 mL, Intravenous, PRN, Line Care, Per Musical String Maker Request, Starting Fri03/06/20 at 1709, For 72 hours May use order for Line Care after every IV line use and Agitated Saline Bubble Study. Administration for Bubble Study per investigator vice request for only. Remove 1 mL 0.9% [...] Start: 02-21-2021 take 1 capsule by mo [facility] every week vitamin D (ERGOCALCIFEROL) 1.25 MG (12382 UT) CAPS capsule Indications: Vitamin D deficiency TAKE 1 CAPSULE BY MOUTH ONE TIME PER WEEK 12 capsule 0 02/21/2021 Active Start: 06-01-2020 take 1 capsule by mo [facility] every week vitamin D (ERGOCALCIFEROL) 1.25 MG (68689 UT) CAPS capsule Indications: Vitamin D deficiency TAKE 1 CAPSULE BY MOUTH ONE TIME PER WEEK 12 capsule 1 06/01/2020 Active Start: 02-01-2020 take 64486 [IU] by m outh every week 50,000 Units, Oral, WEEKLY, First dose on Fri03/07/20 at 0900 Start: 03-09-2017 take 1 capsule by [facility] every week vitamin D (ERGOCALCIFEROL) 34398 units capsule Take 1 capsule by mouth [...] Test Name Value Interpretation Reference Range Facility CBC W/Diff, Automatedon 09-0 Absolute Lymph 3.21 X10 3/uL Normal 0.83-4.51 [facility] Comment on above: Order Comment: 105-1 Performed By: #### L 100.0100, L500.4050, L500.4100, L501.9520 #### [facility] [address] [place], [address] Absolute Neut 3.1 X10 3/uL Normal 2.0-7.7 [facility] Comment on above: Order Comment: 105-1 Performed By: #### L 100.0100, L500.4050, L500.4100, L501.9520 #### [facility] [address] [place], [address] Basophils/100 WBC (Bld) 0.7 % Normal 0-1 [facility] Comment on above: Order Comment: 105-1 Performed By: #### L 100.0100, L500.4050, L500.4100, L501.9520 #### [facility] [address] [place], [address] Eosinophils/100 WBC (Bld) 4.3 % Normal 0-5 [facility] Comment on above: Order Comment: 105-1 Performed By: #### L 100.0100, L500.4050, L500.4100, L501.9520 #### [facility] [address] [place], [address] Erythrocyte distribution width (RBC) [Ratio] 13.9 % Normal 11.6-14.6 [facility] Comment on above: Order Comment: 105-1 Performed By: #### L 100.0100, L500.4050, L500.4100, L501.9520 #### [facility] [address] [place], [address] Hematocrit (Bld) [Volume fraction] 42.7 % Normal 37-47 [facility] Comment on above: Order Comment: 105-1 Performed By: #### L 100.0100, L500.4050, L500.4100, L501.9520 #### [facility] [address] [place], [address] Hemoglobin (Bld) [Mass/Vol] 13.9 g/dL Normal 12.0-15.0 [facility] Comment on above: Order Comment: 105-1 Performed By: #### L 100.0100, L500.4050, L500.4100, L501.9520 #### [facility] [address] [place], [address] IG% 0.300 Normal 0.0-0.9 [facility] Comment on above: Order Comment: 105-1 Result Comment: IG% - Immature Granulocytes (promyelocytes, myelocytes and metamyelocytes) > 1% indicates that a LEFT SHIFT is Present. Performed By: #### L 100.0100, L500.4050, L500.4100, L501.9520 #### [facility] [address] [place], [address] Lymphocytes/100 WBC (Bld) 44.3 % High 19-41 [facility] Comment on above: Order Comment: 105-1 Performed By: #### L 100.0100, L500.4050, L500.4100, L501.9520 #### [facility] [address] [place], [address] MCH (RBC) [Entitic mass] 32.1 pg High 27.0-32.0 [facility] Comment on above: Order Comment: 105-1 Performed By: #### L 100.0100, L500.4050, L500.4100, L501.9520 #### [facility] [address] [place], [address] MCHC (RBC) [Mass/Vol] 32.6 g/dL Normal 32-36 [facility] Comment on above: Order Comment: 105-1 Performed By: #### L 100.0100, L500.4050, L500.4100, L501.9520 #### [facility] [address] [place], [address] MCV (RBC) [Entitic vol] 98.6 fL Normal 81-99 [facility] Comment on above: Order Comment: 105-1 Performed By: #### L 100.0100, L500.4050, L500.4100, L501.9520 #### [facility] [address] [place], [address] Monocytes/100 WBC (Bld) 7.3 % Normal 0-10 [facility] Comment on above: Order Comment: 105-1 Performed By: #### L 100.0100, L500.4050, L500.4100, L501.9520 #### [facility] [address] [place], [address] Neutrophils/100 WBC (Bld) 43.1 % Low 47-70 [facility] Comment on above: Order Comment: 105-1 Performed By: #### L 100.0100, L500.4050, L500.4100, L501.9520 #### [facility] [address] [place], [address] Nucleated RBC (Bld) [#/Vol] 0 10*3/uL Normal 0-5 [facility] Comment on above: Order Comment: 105-1 Performed By: #### L 100.0100, L500.4050, L500.4100, L501.9520 #### [facility] [address] [place], [address] Platelet mean volume (Bld) [Entitic vol] 11.8 fL Normal 6.2-12.0 [facility] Comment on above: Order Comment: 105-1 Performed By: #### L 100.0100, L500.4050, L500.4100, L501.9520 #### [facility] [address] [place], [address] Platelets (Bld) [#/Vol] 213 10*3/uL Normal 150-450 [facility] Comment on above: Order Comment: 105-1 Performed By: #### L 100.0100, L500.4050, L500.4100, L501.9520 #### [facility] [address] [place], [address] RBC (Bld) [#/Vol] 4.33 10*6/uL Normal 4.2-5.4 [facility] Comment on above: Order Comment: 105-1 Performed By: #### L 100.0100, L500.4050, L500.4100, L501.9520 #### [facility] [address] [place], [address] RDW SD 51.1 fl High 35.1-43.9 [facility] Comment on above: Order Comment: 105-1 Performed By: #### L 100.0100, L500.4050, L500.4100, L501.9520 #### [facility] [address] [place], [address] WBC (Bld) [#/Vol] 7.3 10*3/uL Normal 4.4-11.0 [facility] Comment on above: Order Comment: 105-1 Performed By: #### L 100.0100, L500.4050, L500.4100, L501.9520 #### [facility] [address] [place], [address] Comprehensive Metabolic Prof ilon 05-26-2025 Albumin [Mass/Vol] 3.5 g/dL Normal 3.4-4.8 [facility] Comment on above: Order Comment: 105-1 Performed By: #### L 100.0100, L500.4050, L500.4100, L501.9520 #### [facility] [address] [place], [address] Albumin/Globulin [Mass ratio] 1.2 {ratio} Normal 0.9-2.4 [facility] Comment on above: Order Comment: 105-1 Performed By: #### L 100.0100, L500.4050, L500.4100, L501.9520 #### [facility] [address] [place], [address] ALK PHOS 55 U/L Normal 35-104 [facility] Comment on above: Order Comment: 105-1 Performed By: #### L 100.0100, L500.4050, L500.4100, L501.9520 #### [facility] [address] [place], [address] ALT [Catalytic activity/Vol] 7 U/L Normal <=34 [facility] Comment on above: Order Comment: 105-1 Performed By: #### L 100.0100, L500.4050, L500.4100, L501.9520 #### [facility] [address] [place], [address] AST [Catalytic activity/Vol] 19 U/L Normal <=31 [facility] Comment on above: Order Comment: 105-1 Performed By: #### L 100.0100, L500.4050, L500.4100, L501.9520 #### [facility] [address] [place], [address] Bilirubin [Mass/Vol] 0.57 mg/dL Normal 0.00-1.30 [facility] Comment on above: Order Comment: 105-1 Performed By: #### L 100.0100, L500.4050, L500.4100, L501.9520 #### [facility] [address] [place], [address] BUN/CRE 23.0 RATIO High 10-20 [facility] Comment on above: Order Comment: 105-1 Performed By: #### L 100.0100, L500.4050, L500.4100, L501.9520 #### [facility] [address] [place], [address] Calcium [Mass/Vol] 9.1 mg/dL Normal 7.6-11.0 [facility] Comment on above: Order Comment: 105-1 Performed By: #### L 100.0100, L500.4050, L500.4100, L501.9520 #### [facility] [address] [place], [address] Chloride [Moles/Vol] 106 mmol/L Normal 98-108 [facility] Comment on above: Order Comment: 105-1 Performed By: #### L 100.0100, L500.4050, L500.4100, L501.9520 #### [facility] [address] [place], [address] CO2 [Moles/Vol] 27.6 mmol/L Normal 21.0-32.0 [facility] Comment on above: Order Comment: 105-1 Performed By: #### L 100.0100, L500.4050, L500.4100, L501.9520 #### [facility] [address] [place], [address] Creatinine [Mass/Vol] 0.83 mg/dL Normal 0.70-1.20 [facility] Comment on above: Order Comment: 105-1 Performed By: #### L 100.0100, L500.4050, L500.4100, L501.9520 #### [facility] [address] [place], [address] GAP 9 Normal 5-15 [facility] Comment on above: Order Comment: 105-1 Performed By: #### L 100.0100, L500.4050, L500.4100, L501.9520 #### [facility] [address] [place], [address] GFR/1.73 sq M.predicted among non-blacks MDRD (S/P/Bld) [Vol rate/Area] 71 mL/min/{1.73_m2} Normal >60 [facility] Comment on above: Order Comment: 105-1 Result Comment: mL/m in/1.73m2 CKD-EPI Creatinine Equation (2020) Performed By: #### L 100.0100, L500.4050, L500.4100, L501.9520 #### [facility] [address] [place], [address] Globulin (S) [Mass/Vol] 3.0 g/dL Normal 2.2-4.2 [facility] Comment on above: Order Comment: 105-1 Performed By: #### L 100.0100, L500.4050, L500.4100, L501.9520 #### [facility] [address] [place], [address] Glucose [Mass/Vol] 80 mg/dL Normal 70-99 [facility] Comment on above: Order Comment: 105-1 Performed By: #### L 100.0100, L500.4050, L500.4100, L501.9520 #### [facility] [address] [place], [address] Potassium [Moles/Vol] 4.1 mmol/L Normal 3.3-5.1 [facility] Comment on above: Order Comment: 105-1 Performed By: #### L 100.0100, L500.4050, L500.4100, L501.9520 #### [facility] [address] [place], [address] Sodium [Moles/Vol] 143 mmol/L Normal 133-145 [facility] Comment on above: Order Comment: 105-1 Performed By: #### L 100.0100, L500.4050, L500.4100, L501.9520 #### [facility] [address] [place], [address] T PROT 6.5 g/dL Normal 5.9-8.4 [facility] Comment on above: Order Comment: 105-1 Performed By: #### L 100.0100, L500.4050, L500.4100, L501.9520 #### [facility] [address] [place], [address] Urea nitrogen [Mass/Vol] 19 mg/dL Normal 4-19 [facility] Comment on above: Order Comment: 105-1 Performed By: #### L 100.0100, L500.4050, L500.4100, L501.9520 #### [facility] [address] [place], [address] Lipid Profileon 05-26-2025 CHOL:HDL 4.28 Normal [facility] Comment on above: Order Comment: 105-1 Performed By: #### L 100.0100, L500.4050, L500.4100, L501.9520 #### [facility] [address] [place], [address] Cholesterol [Mass/Vol] 203 mg/dL High <=200 [facility] Comment on above: Order Comment: 105-1 Result Comment: Chol esterol level, Desirable <200 mg/dL Borderline high cholesterol 200-239 mg/dL High cholesterol >=240 mg/dL Recommendations of the NCEP Adult Treatment Panel for the following risk-cutoff thresholds for the [place] population. Performed By: #### L 100.0100, L500.4050, L500.4100, L501.9520 #### [facility] [address] [place], [address] Cholesterol in HDL [Mass/Vol] 47 mg/dL Normal [facility] Comment on above: Order Comment: Result Comment: Sherie onal Cholesterol Education Program (NCEP) guidelines: <40 mg/dL: Low HDL-cholesterol (major risk factor for CHD) >= 60 mg/dL: High HDL-cholesterol (negative risk factor for CHD) HDL-cholesterol is affected by a number of factors, e.g. smoking, exercise, hormones, sex and age. Performed By: #### L 100.0100, L500.4050, L500.4100, L501.9520 #### [facility] [address] [place], [address] Cholesterol in LDL [Mass/Vol] 126 mg/dL Normal [facility] Comment on above: Order Comment: Result Comment: Bord wctjjs=242-040 mg/dL Higher Rkaq=607 mg/dL or greater Friedwald Equation for LDL-C Performed By: #### L 100.0100, L500.4050, L500.4100, L501.9520 #### [facility] [address] [place], [address] Cholesterol in VLDL [Mass/Vol] 30 mg/dL Normal 5-40 [facility] Comment on above: Order Comment: Performed By: #### L 100.0100, L500.4050, L500.4100, L501.9520 #### [facility] [address] [place], [address] Triglyceride [Mass/Vol] 148 mg/dL Normal [facility] Comment on above: Order Comment: 1 Result Comment: The drugs N-Acetylcysteine and Metamizole may falsely depress this assay. Normal range: <150 mg/dL Borderline High: 150-199 mg/dL High: 200-499 mg/dL Very High: >500 mg/dL Performed By: #### L 100.0100, L500.4050, L500.4100, L501.9520 #### [facility] [address] [place], [address] Thyroid Stim Hormone (TSH)on 05-26-2025 TSH 1.290 uIU/mL Normal 0.300-4.200 [facility] Comment on above: Order Comment: 105-1 Performed By: #### L 100.0100, L500.4050, L500.4100, L501.9520 #### [facility] [address] [place], [address] Valproic Acid (Depakene) Lev ladonna 05-09-2025 VALPROIC ACID 7 ug/mL Low 50-100 [facility] Comment on above: Order Comment: 105 Result Comment: Valp roic Acid concentrations >100 ug/mL are potentially toxic. Performed By: #### L 100.0100, L500.4050, L500.4100, L501.9520 #### [facility] [address] [place], [address] Vitamin D,25 Hydroxyon 05-09 Vitamin D 25-OH 40.8 ng/mL Normal 30-100 [facility] Comment on above: Order Comment: 105 Result Comment: Kerline min D Status Deficiency: <20 ng/mL (50nmol/L) Insufficiency: 20-30 ng/mL (50-75 nmol/L) Sufficiency: 30-100 ng/mL (75-250 nmol/L) Toxicity: >100 ng/mL (>250 nmol/L) Performed By: #### L 100.0100, L500.4050, L500.4100, L501.9520 #### [facility] [address] [place], [address] RESPIRATORY PANEL MOLECULARo n 04-08-2025 RP PANEL ADENOVIRUS Not Detected INFLUENZA A Not Detected INFLUENZA A (SUBTYPE H1) Not Detected INFLUENZA A (SUBTYPE H3) Not Detected INFLUENZA B Not Detected HUMAN METAPHNEUMO Not Detected PARAINFLUENZA 1 Not Detected PARAINFLUENZA 2 Not Detected PARAINFLUENZA 3 Not Detected PARAINFLUENZA 4 Not Detected RHINOVIRUS Not Detected RSV A Not Detected RSV B Not Detected Normal [facility] Comment on above: Performed By: #### L 100.0100, L500.4050, L500.4100, L501.9520 #### [facility] [address] [place], [address] CBC W/Diff, Automatedon 02-20 Absolute Lymph 3.19 X10 3/uL Normal 0.83-4.51 [facility] Comment on above: Order Comment: 105-1 Performed By: #### L 100.0100, L500.4050, L500.4100, L501.9520 #### [facility] [address] [place], [address] Absolute Neut 3.0 X10 3/uL Normal 2.0-7.7 [facility] Comment on above: Order Comment: 105-1 Performed By: #### L 100.0100, L500.4050, L500.4100, L501.9520 #### [facility] [address] [place], [address] Basophils/100 WBC (Bld) 1.0 % Normal 0-1 [facility] Comment on above: Order Comment: 105-1 Performed By: #### L 100.0100, L500.4050, L500.4100, L501.9520 #### [facility] [address] [place], [address] Eosinophils/100 WBC (Bld) 3.8 % Normal 0-5 [facility] Comment on above: Order Comment: 105-1 Performed By: #### L 100.0100, L500.4050, L500.4100, L501.9520 #### [facility] [address] [place], [address] Erythrocyte distribution width (RBC) [Ratio] 13.4 % Normal 11.6-14.6 [facility] Comment on above: Order Comment: 105-1 Performed By: #### L 100.0100, L500.4050, L500.4100, L501.9520 #### [facility] [address] [place], [address] Hematocrit (Bld) [Volume fraction] 45.0 % Normal 37-47 [facility] Comment on above: Order Comment: 105-1 Performed By: #### L 100.0100, L500.4050, L500.4100, L501.9520 #### [facility] [address] [place], [address] Hemoglobin (Bld) [Mass/Vol] 14.7 g/dL Normal 12.0-15.0 [facility] Comment on above: Order Comment: 105-1 Performed By: #### L 100.0100, L500.4050, L500.4100, L501.9520 #### [facility] [address] [place], [address] IG% 0.300 Normal 0.0-0.9 [facility] Comment on above: Order Comment: 105-1 Result Comment: IG% - Immature Granulocytes (promyelocytes, myelocytes and metamyelocytes) > 1% indicates that a LEFT SHIFT is Present. Performed By: #### L 100.0100, L500.4050, L500.4100, L501.9520 #### [facility] [address] [place], [address] Lymphocytes/100 WBC (Bld) 45.4 % High 19-41 [facility] Comment on above: Order Comment: 105-1 Performed By: #### L 100.0100, L500.4050, L500.4100, L501.9520 #### [facility] [address] [place], [address] MCH (RBC) [Entitic mass] 31.7 pg Normal 27.0-32.0 [facility] Comment on above: Order Comment: 105-1 Performed By: #### L 100.0100, L500.4050, L500.4100, L501.9520 #### [facility] [address] [place], [address] MCHC (RBC) [Mass/Vol] 32.7 g/dL Normal 32-36 [facility] Comment on above: Order Comment: 105-1 Performed By: #### L 100.0100, L500.4050, L500.4100, L501.9520 #### [facility] [address] [place], [address] MCV (RBC) [Entitic vol] 97.0 fL Normal 81-99 [facility] Comment on above: Order Comment: 105-1 Performed By: #### L 100.0100, L500.4050, L500.4100, L501.9520 #### [facility] [address] [place], [address] Monocytes/100 WBC (Bld) 6.8 % Normal 0-10 [facility] Comment on above: Order Comment: 105-1 Performed By: #### L 100.0100, L500.4050, L500.4100, L501.9520 #### [facility] [address] [place], [address] Neutrophils/100 WBC (Bld) 42.7 % Low 47-70 [facility] Comment on above: Order Comment: 105-1 Performed By: #### L 100.0100, L500.4050, L500.4100, L501.9520 #### [facility] [address] [place], [address] Nucleated RBC (Bld) [#/Vol] 0 10*3/uL Normal 0-5 [facility] Comment on above: Order Comment: 105-1 Performed By: #### L 100.0100, L500.4050, L500.4100, L501.9520 #### [facility] [address] [place], [address] Platelet mean volume (Bld) [Entitic vol] 11.9 fL Normal 6.2-12.0 [facility] Comment on above: Order Comment: 105-1 Performed By: #### L 100.0100, L500.4050, L500.4100, L501.9520 #### [facility] [address] [place], [address] Platelets (Bld) [#/Vol] 204 10*3/uL Normal 150-450 [facility] Comment on above: Order Comment: 105-1 Performed By: #### L 100.0100, L500.4050, L500.4100, L501.9520 #### [facility] [address] [place], [address] RBC (Bld) [#/Vol] 4.64 10*6/uL Normal 4.2-5.4 [facility] Comment on above: Order Comment: 105-1 Performed By: #### L 100.0100, L500.4050, L500.4100, L501.9520 #### [facility] [address] [place], [address] RDW SD 47.8 fl High 35.1-43.9 [facility] Comment on above: Order Comment: 105-1 Performed By: #### L 100.0100, L500.4050, L500.4100, L501.9520 #### [facility] [address] [place], [address] WBC (Bld) [#/Vol] 7.0 10*3/uL Normal 4.4-11.0 [facility] Comment on above: Order Comment: 105-1 Performed By: #### L 100.0100, L500.4050, L500.4100, L501.9520 #### [facility] [address] [place], [address] Comprehensive Metabolic Prof ilon 03-03-2025 Albumin [Mass/Vol] 3.3 g/dL Low 3.4-4.8 [facility] Comment on above: Order Comment: 105-1 Performed By: #### L 100.0100, L500.4050, L500.4100, L501.9520 #### [facility] [address] [place], [address] Albumin/Globulin [Mass ratio] 1.1 {ratio} Normal 0.9-2.4 [facility] Comment on above: Order Comment: 105-1 Performed By: #### L 100.0100, L500.4050, L500.4100, L501.9520 #### [facility] [address] [place], [address] ALK PHOS 57 U/L Normal 35-104 [facility] Comment on above: Order Comment: 105-1 Performed By: #### L 100.0100, L500.4050, L500.4100, L501.9520 #### [facility] [address] [place], [address] ALT [Catalytic activity/Vol] 11 U/L Normal <=34 [facility] Comment on above: Order Comment: 105-1 Performed By: #### L 100.0100, L500.4050, L500.4100, L501.9520 #### [facility] [address] [place], [address] AST [Catalytic activity/Vol] 26 U/L Normal <=31 [facility] Comment on above: Order Comment: 105-1 Result Comment: Hemo lysis present, Results??could be affected. ?? Performed By: #### L 100.0100, L500.4050, L500.4100, L501.9520 #### [facility] [address] [place], [address] Bilirubin [Mass/Vol] 0.37 mg/dL Normal 0.00-1.30 [facility] Comment on above: Order Comment: 105-1 Performed By: #### L 100.0100, L500.4050, L500.4100, L501.9520 #### [facility] [address] [place], [address] BUN/CRE 24.8 RATIO High 10-20 [facility] Comment on above: Order Comment: 105-1 Performed By: #### L 100.0100, L500.4050, L500.4100, L501.9520 #### [facility] [address] [place], [address] Calcium [Mass/Vol] 9.0 mg/dL Normal 7.6-11.0 [facility] Comment on above: Order Comment: 105-1 Performed By: #### L 100.0100, L500.4050, L500.4100, L501.9520 #### [facility] [address] [place], [address] Chloride [Moles/Vol] 106 mmol/L Normal 98-108 [facility] Comment on above: Order Comment: 105-1 Performed By: #### L 100.0100, L500.4050, L500.4100, L501.9520 #### [facility] [address] [place], [address] CO2 [Moles/Vol] 25.7 mmol/L Normal 21.0-32.0 [facility] Comment on above: Order Comment: 105-1 Performed By: #### L 100.0100, L500.4050, L500.4100, L501.9520 #### [facility] [address] [place], [address] Creatinine [Mass/Vol] 0.82 mg/dL Normal 0.70-1.20 [facility] Comment on above: Order Comment: 105-1 Performed By: #### L 100.0100, L500.4050, L500.4100, L501.9520 #### [facility] [address] [place], [address] GAP 10 Normal 5-15 [facility] Comment on above: Order Comment: 105-1 Performed By: #### L 100.0100, L500.4050, L500.4100, L501.9520 #### [facility] [address] [place], [address] GFR/1.73 sq M.predicted among non-blacks MDRD (S/P/Bld) [Vol rate/Area] 72 mL/min/{1.73_m2} Normal >60 [facility] Comment on above: Order Comment: 105- Result Comment: mL/m in/1.73m2 CKD-EPI Creatinine Equation (2020) Performed By: #### L 100.0100, L500.4050, L500.4100, L501.9520 #### [facility] [address] [place], [address] Globulin (S) [Mass/Vol] 3.0 g/dL Normal 2.2-4.2 [facility] Comment on above: Order Comment: 105-1 Performed By: #### L 100.0100, L500.4050, L500.4100, L501.9520 #### [facility] [address] [place], [address] Glucose [Mass/Vol] 82 mg/dL Normal 70-99 [facility] Comment on above: Order Comment: 105-1 Performed By: #### L 100.0100, L500.4050, L500.4100, L501.9520 #### [facility] [address] [place], [address] Potassium [Moles/Vol] 4.4 mmol/L Normal 3.3-5.1 [facility] Comment on above: Order Comment: 105-1 Result Comment: Hemo lysis present, Results??could be affected. ?? Performed By: #### L 100.0100, L500.4050, L500.4100, L501.9520 #### [facility] [address] [place], [address] Sodium [Moles/Vol] 141 mmol/L Normal 133-145 [facility] Comment on above: Order Comment: 105-1 Performed By: #### L 100.0100, L500.4050, L500.4100, [id number] #### [facility] [address] [place], [address] T PROT 6.3 g/dL Normal 5.9-8.4 [facility] Comment on above: Order Comment: 105-1 Performed By: #### L 100.0100, L500.4050, L500.4100, [id number] #### [facility] [address] [place], [address] Urea nitrogen [Mass/Vol] 20 mg/dL High 4-19 [facility] Comment on above: Order Comment: 105-1 Performed By: #### L 100.0100, L500.4050, L500.4100, [id number] #### [facility] [address] [place], [address] Lipid Profileon 03-03-2025 CHOL:HDL 4.62 Normal [facility] Comment on above: Order Comment: 105-1 Performed By: #### L 100.0100, L500.4050, L500.4100, L501.9520 #### [facility] [address] [place], [address] Cholesterol [Mass/Vol] 192 mg/dL Normal <=200 [facility] Comment on above: Order Comment: 105-1 Result Comment: Chol esterol level, Desirable <200 mg/dL Borderline high cholesterol 200-239 mg/dL High cholesterol >=240 mg/dL Recommendations of the NCEP Adult Treatment Panel for the following risk-cutoff thresholds for the [place] population. Performed By: #### L 100.0100, L500.4050, L500.4100, L501.9520 #### [facility] [address] [place], [address] Cholesterol in HDL [Mass/Vol] 42 mg/dL Normal [facility] Comment on above: Order Comment: 105-1 Result Comment: Sherie onal Cholesterol Education Program (NCEP) guidelines: <40 mg/dL: Low HDL-cholesterol (major risk factor for CHD) >= 60 mg/dL: High HDL-cholesterol (negative risk factor for CHD) HDL-cholesterol is affected by a number of factors, e.g. smoking, exercise, hormones, sex and age. Performed By: #### L 100.0100, L500.4050, L500.4100, L501.9520 #### [facility] [address] [place], [address] Cholesterol in LDL [Mass/Vol] 119 mg/dL Normal [facility] Comment on above: Order Comment: 105-1 Result Comment: Bord pfglfo=776-521 mg/dL Higher Wwml=404 mg/dL or greater Performed By: #### L 100.0100, L500.4050, L500.4100, L501.9520 #### [facility] [address] [place], [address] Cholesterol in VLDL [Mass/Vol] 31 mg/dL Normal 5-40 [facility] Comment on above: Order Comment: 105-1 Performed By: #### L 100.0100, L500.4050, L500.4100, L501.9520 #### [facility] [address] [place], [address] Triglyceride [Mass/Vol] 155 mg/dL Normal [facility] Comment on above: Order Comment: 105-1 Result Comment: The drugs N-Acetylcysteine and Metamizole may falsely depress this assay. Normal range: <150 mg/dL Borderline High: 150-199 mg/dL High: 200-499 mg/dL Very High: >500 mg/dL Performed By: #### L 100.0100, L500.4050, L500.4100, L501.9520 #### [facility] [address] [place], [address] Thyroid Stim Hormone (TSH)on 03-03-2025 TSH 1.250 uIU/mL Normal 0.300-4.200 [facility] Comment on above: Order Comment: 105-1 Performed By: #### L 100.0100, L500.4050, L500.4100, [id number] #### [facility] [address] [place], [address] Valproic Acid (Depakene) Lev ladonna 02-16-2025 VALPROIC ACID 27 ug/mL Low 50-100 [facility] Comment on above: Order Comment: Result Comment: Valp roic Acid concentrations >100 ug/mL are potentially toxic. Performed By: #### L 100.0100, L500.4050, L500.4100, L501.9520 #### [facility] [address] [place], [address] Vitamin D,25 Hydroxyon 02-16 Vitamin D 25-OH 36.9 ng/mL Normal 30-100 [facility] Comment on above: Order Comment: 105 Result Comment: Kerline min D Status Deficiency: <20 ng/mL (50nmol/L) Insufficiency: 20-30 ng/mL (50-75 nmol/L) Sufficiency: 30-100 ng/mL (75-250 nmol/L) Toxicity: >100 ng/mL (>250 nmol/L) Performed By: #### L 100.0100, L500.4050, L500.4100, L501.9520 #### [facility] [address] [place], [place], [id number] Absolute neutrophil countOrd ered By: Saurabh Fernandez on 12-09-2024 Neutrophils (Bld) [#/Vol] 3.7 10*3/uL 2.0-7.7 [facility] Anion gap in Serum or Plasma Ordered By: Saurabh Fernandez on 12-09-2024 Anion gap [Moles/Vol] 8 mmol/L 02-03 [facility] BUN/creatinine ratioOrdered By: Saurabh Fernandez on 12-09-2024 Urea nitrogen/Creatinine [Mass ratio] 21.6 mg/mg High 07-11 [facility] Basophil percentageOrdered B y: Saurabh Fernandez on 12-09-2024 Basophils/100 WBC (Bld) 0.9 % 0-1 [facility] Bilirubin, totalOrdered By: Saurabh Fernandez on 12-09-2024 Bilirubin [Mass/Vol] 0.48 mg/dL 0.00-1.30 [facility] CBC W/Diff, Automatedon 11-21 Absolute Lymph 3.12 X10 3/uL Normal 0.83-4.51 [facility] Comment on above: Order Comment: 105-1 Performed By: #### L 100.0100, L500.4050, L500.4100, L501.9520 #### [facility] [address] [place], [address] Absolute Neut 3.7 X10 3/uL Normal 2.0-7.7 [facility] Comment on above: Order Comment: 105-1 Performed By: #### L 100.0100, L500.4050, L500.4100, L501.9520 #### [facility] [address] [place], [address] Basophils/100 WBC (Bld) 0.9 % Normal 0-1 [facility] Comment on above: Order Comment: 105-1 Performed By: #### L 100.0100, L500.4050, L500.4100, L501.9520 #### [facility] [address] [place], [address] Eosinophils/100 WBC (Bld) 4.1 % Normal 0-5 [facility] Comment on above: Order Comment: 105-1 Performed By: #### L 100.0100, L500.4050, L500.4100, L501.9520 #### [facility] [address] [place], [address] Erythrocyte distribution width (RBC) [Ratio] 14.9 % High 11.6-14.6 [facility] Comment on above: Order Comment: 105-1 Performed By: #### L 100.0100, L500.4050, L500.4100, L501.9520 #### [facility] [address] [place], [address] Hematocrit (Bld) [Volume fraction] 40.3 % Normal 37-47 [facility] Comment on above: Order Comment: 105-1 Performed By: #### L 100.0100, L500.4050, L500.4100, L501.9520 #### [facility] [address] [place], [address] Hemoglobin (Bld) [Mass/Vol] 13.1 g/dL Normal 12.0-15.0 [facility] Comment on above: Order Comment: 105-1 Performed By: #### L 100.0100, L500.4050, L500.4100, L501.9520 #### [facility] [address] [place], [address] IG% 0.400 Normal 0.0-0.9 [facility] Comment on above: Order Comment: 105-1 Result Comment: IG% - Immature Granulocytes (promyelocytes, myelocytes and metamyelocytes) > 1% indicates that a LEFT SHIFT is Present. Performed By: #### L 100.0100, L500.4050, L500.4100, L501.9520 #### [facility] [address] [place], [address] Lymphocytes/100 WBC (Bld) 39.9 % Normal 19-41 [facility] Comment on above: Order Comment: 105-1 Performed By: #### L 100.0100, L500.4050, L500.4100, L501.9520 #### [facility] [address] [place], [address] MCH (RBC) [Entitic mass] 32.1 pg High 27.0-32.0 [facility] Comment on above: Order Comment: 105-1 Performed By: #### L 100.0100, L500.4050, L500.4100, L501.9520 #### [facility] [address] [place], [address] MCHC (RBC) [Mass/Vol] 32.5 g/dL Normal 32-36 [facility] Comment on above: Order Comment: 105-1 Performed By: #### L 100.0100, L500.4050, L500.4100, L501.9520 #### [facility] [address] [place], [address] MCV (RBC) [Entitic vol] 98.8 fL Normal 81-99 [facility] Comment on above: Order Comment: 105-1 Performed By: #### L 100.0100, L500.4050, L500.4100, L501.9520 #### [facility] [address] [place], [address] Monocytes/100 WBC (Bld) 7.0 % Normal 0-10 [facility] Comment on above: Order Comment: 105-1 Performed By: #### L 100.0100, L500.4050, L500.4100, [id number] #### [facility] [address] [place], [address] Neutrophils/100 WBC (Bld) 47.7 % Normal 47-70 [facility] Comment on above: Order Comment: 105-1 Performed By: #### L 100.0100, L500.4050, L500.4100, L501.9520 #### [facility] [address] [place], [address] Nucleated RBC (Bld) [#/Vol] 0 10*3/uL Normal 0-5 [facility] Comment on above: Order Comment: 105-1 Performed By: #### L 100.0100, L500.4050, L500.4100, L501.9520 #### [facility] [address] [place], [address] Platelet mean volume (Bld) [Entitic vol] 11.4 fL Normal 6.2-12.0 [facility] Comment on above: Order Comment: 105-1 Performed By: #### L 100.0100, L500.4050, L500.4100, L501.9520 #### [facility] [address] [place], [address] Platelets (Bld) [#/Vol] 160 10*3/uL Normal 150-450 [facility] Comment on above: Order Comment: 105-1 Performed By: #### L 100.0100, L500.4050, L500.4100, L501.9520 #### [facility] [address] [place], [address] RBC (Bld) [#/Vol] 4.08 10*6/uL Low 4.2-5.4 [facility] Comment on above: Order Comment: 105-1 Performed By: #### L 100.0100, L500.4050, L500.4100, L501.9520 #### [facility] [address] [place], [address] RDW SD 54.3 fl High 35.1-43.9 [facility] Comment on above: Order Comment: 105-1 Performed By: #### L 100.0100, L500.4050, L500.4100, L501.9520 #### [facility] [address] [place], [address] WBC (Bld) [#/Vol] 7.8 10*3/uL Normal 4.4-11.0 [facility] Comment on above: Order Comment: 105-1 Performed By: #### L 100.0100, L500.4050, L500.4100, L501.9520 #### [facility] [address] [place], [address] Calculated very low density lipoprotein (VLDL) cholesterol measurementOrdered By: Saurabh Fernandez on 12-09-2024 VLDL Cholesterol 36 mg/dL 5-40 [facility] Carbon dioxide, total [Moles /volume] in Central venous bloodOrdered By: Saurabh Fernandez on 12-09-2024 CO2 [Moles/Vol] 28.8 mmol/L 21.0-32.0 [facility] Chloride assayOrdered By: Nieto on 12-09-2024 Chloride [Moles/Vol] 106 mmol/L 98-108 [facility] Comprehensive Metabolic Prof ilon 12-09-2024 Albumin [Mass/Vol] 3.3 g/dL Low 3.4-4.8 [facility] Comment on above: Order Comment: 105-1 Performed By: #### L 100.0100, L500.4050, L500.4100, L501.9520 #### [facility] [address] [place], [address] Albumin/Globulin [Mass ratio] 1.1 {ratio} Normal 0.9-2.4 [facility] Comment on above: Order Comment: 105-1 Performed By: #### L 100.0100, L500.4050, L500.4100, L501.9520 #### [facility] [address] [place], [address] ALK PHOS 62 U/L Normal 35-104 [facility] Comment on above: Order Comment: 105-1 Performed By: #### L 100.0100, L500.4050, L500.4100, L501.9520 #### [facility] [address] [place], [address] ALT [Catalytic activity/Vol] 11 U/L Normal <=34 [facility] Comment on above: Order Comment: 105-1 Performed By: #### L 100.0100, L500.4050, L500.4100, L501.9520 #### [facility] [address] [place], [address] AST [Catalytic activity/Vol] 17 U/L Normal <=31 [facility] Comment on above: Order Comment: 105-1 Performed By: #### L 100.0100, L500.4050, L500.4100, L501.9520 #### [facility] [address] [place], [address] Bilirubin [Mass/Vol] 0.48 mg/dL Normal 0.00-1.30 [facility] Comment on above: Order Comment: 105-1 Performed By: #### L 100.0100, L500.4050, L500.4100, L501.9520 #### [facility] [address] [place], [address] BUN/CRE 21.6 RATIO High 10-20 [facility] Comment on above: Order Comment: 105-1 Performed By: #### L 100.0100, L500.4050, L500.4100, L501.9520 #### [facility] [address] [place], [address] Calcium [Mass/Vol] 8.9 mg/dL Normal 7.6-11.0 [facility] Comment on above: Order Comment: 105-1 Performed By: #### L 100.0100, L500.4050, L500.4100, L501.9520 #### [facility] [address] [place], [address] Chloride [Moles/Vol] 106 mmol/L Normal 98-108 [facility] Comment on above: Order Comment: 105-1 Performed By: #### L 100.0100, L500.4050, L500.4100, L501.9520 #### [facility] [address] [place], [address] CO2 [Moles/Vol] 28.8 mmol/L Normal 21.0-32.0 [facility] Comment on above: Order Comment: 105-1 Performed By: #### L 100.0100, L500.4050, L500.4100, L501.9520 #### [facility] [address] [place], [address] Creatinine [Mass/Vol] 0.73 mg/dL Normal 0.70-1.20 [facility] Comment on above: Order Comment: 105-1 Performed By: #### L 100.0100, L500.4050, L500.4100, L501.9520 #### [facility] [address] [place], [address] GAP 8 Normal 5-15 [facility] Comment on above: Order Comment: 105-1 Performed By: #### L 100.0100, L500.4050, L500.4100, L501.9520 #### [facility] [address] [place], [address] GFR/1.73 sq M.predicted among non-blacks MDRD (S/P/Bld) [Vol rate/Area] 82 mL/min/{1.73_m2} Normal >60 [facility] Comment on above: Order Comment: 105-1 Result Comment: mL/m in/1.73m2 CKD-EPI Creatinine Equation (2020) Performed By: #### L 100.0100, L500.4050, L500.4100, L501.9520 #### [facility] [address] [place], [address] Globulin (S) [Mass/Vol] 3.0 g/dL Normal 2.2-4.2 [facility] Comment on above: Order Comment: 105-1 Performed By: #### L 100.0100, L500.4050, L500.4100, L501.9520 #### [facility] [address] [place], [address] Glucose [Mass/Vol] 85 mg/dL Normal 70-99 [facility] Comment on above: Order Comment: 105-1 Performed By: #### L 100.0100, L500.4050, L500.4100, L501.9520 #### [facility] [address] [place], [address] Potassium [Moles/Vol] 4.4 mmol/L Normal 3.3-5.1 [facility] Comment on above: Order Comment: 105-1 Performed By: #### L 100.0100, L500.4050, L500.4100, L501.9520 #### [facility] [address] [place], [address] Sodium [Moles/Vol] 142 mmol/L Normal 133-145 [facility] Comment on above: Order Comment: 105-1 Performed By: #### L 100.0100, L500.4050, L500.4100, L501.9520 #### [facility] [address] [place], [address] T PROT 6.3 g/dL Normal 5.9-8.4 [facility] Comment on above: Order Comment: 105-1 Performed By: #### L 100.0100, L500.4050, L500.4100, L501.9520 #### [facility] [address] [place], [address] Urea nitrogen [Mass/Vol] 16 mg/dL Normal 4-19 [facility] Comment on above: Order Comment: 105-1 Performed By: #### L 100.0100, L500.4050, L500.410, L501.9510 #### [facility] [address] [place], [address] Eosinophil percentageOrdered By: Saurabh Fernandez on 12-09-2024 Eosinophils/100 WBC (Bld) 4.1 % 0-5 [facility] Erythrocyte distribution wid th (RBC) [Ratio]Ordered By: Saurabh Fernandez on 12-09-2024 Erythrocyte distribution width (RBC) [Entitic vol] 54.3 fL High 35.1-43.9 [facility] Erythrocyte distribution wid th ratioOrdered By: Saurabh Fernandez on 12-09-2024 Erythrocyte distribution width (RBC) [Ratio] 14.9 % High 11.6-14.6 [facility] GFR/1.73 sq M.predicted layne g non-blacks MDRD (S/P/Bld) [Vol rate/Area]Ordered By: Saurabh Fernandez on 12-09-2024 Estimated GFR (MDRD) Non-Af Amer 82 >60 [facility] Comment on above: mL/min/1.73m2 CKD-EP I Creatinine Equation (2020) Hematocrit Auto (Bld) [Volum e fraction]Ordered By: Saurabh Fernandez on 12-09-2024 Hematocrit (Bld) [Volume fraction] 40.3 % 37-47 [facility] Hemoglobin measurementOrdere d By: Saurabh Fernandez on 12-09-2024 Hemoglobin (Bld) [Mass/Vol] 13.1 g/dL 12.0-15.0 [facility] Immature granulocytes/100 WB C Auto (Bld)Ordered By: Saurabh Fernandez on 12-09-2024 Immature granulocytes/100 WBC (Bld) 0.400 % 0.0-0.9 [facility] Comment on above: IG% - Immature Granu locytes (promyelocytes, myelocytes and metamyelocytes) > 1% indicates that a LEFT SHIFT is Present. LDL calc ser/plasOrdered By: Saurabh Fernandez on 12-09-2024 LDL Cholesterol, Calculated 120 mg/dL [facility] Comment on above: Wgkpsavxmm=087-463 m g/dL & Higher Aopy=118 mg/dL or greater Laboratory - Chemistry and C hemistry - challengeOrdered By: Saurabh Fernandez on 12-09-2024 AST [Catalytic activity/Vol] 17 U/L <32 [facility] Lipid Profileon 12-09-2024 CHOL:HDL 4.34 Normal [facility] Comment on above: Order Comment: 105-1 Performed By: #### L 100.0100, L500.4050, L500.4100, L501.9520 #### [facility] [address] [place], [address] Cholesterol [Mass/Vol] 203 mg/dL High <=200 [facility] Comment on above: Order Comment: 105-1 Result Comment: Chol esterol level, Desirable <200 mg/dL Borderline high cholesterol 200-239 mg/dL High cholesterol >=240 mg/dL Recommendations of the NCEP Adult Treatment Panel for the following risk-cutoff thresholds for the [place] population. Performed By: #### L 100.0100, L500.4050, L500.4100, L501.9520 #### [facility] [address] [place], [address] Cholesterol in HDL [Mass/Vol] 47 mg/dL Normal [facility] Comment on above: Order Comment: 105-1 Result Comment: Sherie onal Cholesterol Education Program (NCEP) guidelines: <40 mg/dL: Low HDL-cholesterol (major risk factor for CHD) >= 60 mg/dL: High HDL-cholesterol (negative risk factor for CHD) HDL-cholesterol is affected by a number of factors, e.g. smoking, exercise, hormones, sex and age. Performed By: #### L 100.0100, L500.4050, L500.4100, L501.9520 #### [facility] [address] [place], [address] Cholesterol in LDL [Mass/Vol] 120 mg/dL Normal [facility] Comment on above: Order Comment: 105-1 Result Comment: Bord uncfaf=885-379 mg/dL Higher Tumh=778 mg/dL or greater Performed By: #### L 100.0100, L500.4050, L500.4100, L501.9520 #### [facility] [address] [place], [address] Cholesterol in VLDL [Mass/Vol] 36 mg/dL Normal 5-40 [facility] Comment on above: Order Comment: 105-1 Performed By: #### L 100.0100, L500.4050, L500.4100, L501.9520 #### [facility] [address] [place], [address] Triglyceride [Mass/Vol] 180 mg/dL Normal [facility] Comment on above: Order Comment: 105-1 Result Comment: The drugs N-Acetylcysteine and Metamizole may falsely depress this assay. Normal range: <150 mg/dL Borderline High: 150-199 mg/dL High: 200-499 mg/dL Very High: >500 mg/dL Performed By: #### L 100.0100, L500.4050, L500.4100, L501.9520 #### [facility] [address] [place], [address] Lymphocytes Auto (Unsp spec) [#/Vol]Ordered By: Saurabh Fernandez on 12-09-2024 Lymphocytes (Bld) [#/Vol] 3.12 10*3/uL 0.83-4.51 [facility] Lymphocytes/100 WBC Auto (Un sp spec)Ordered By: Saurabh Fernandez on 12-09-2024 Lymphocytes/100 WBC (Bld) 39.9 % 19-41 [facility] MCV (mean corpuscular volume ) determinationOrdered By: Saurabh Fernandez on 12-09-2024 MCV (RBC) [Entitic vol] 98.8 fL 81-99 [facility] Mean corpuscular hemoglobin (MCH) determinationOrdered By: Saurabh Fernandez on 12-09-2024 MCH (RBC) [Entitic mass] 32.1 pg High 27.0-32.0 [facility] Mean corpuscular hemoglobin concentration (MCHC) determinationOrdered By: Saurabh Fernandez on 12-09-2024 MCHC (RBC) [Mass/Vol] 32.5 g/dL 32-36 [facility] Mean platelet volume determi nationOrdered By: Saurabh Fernandez on 12-09-2024 Platelet mean volume (Bld) [Entitic vol] 11.4 fL 6.2-12.0 [facility] Monocyte percentageOrdered B y: Saurabh Fernandez on 12-09-2024 Monocytes/100 WBC (Bld) 7.0 % 0-10 [facility] Neutrophil percentageOrdered By: Saurabh Fernandez on 12-09-2024 Neutrophils/100 WBC (Bld) 47.7 % 47-70 [facility] Nucleated red blood cell per centageOrdered By: Saurabh Fernandez on 12-09-2024 Nucleated RBC/100 WBC (Bld) [Ratio] 0 % 0-5 [facility] Platelet countOrdered By: Nieto on 12-09-2024 Platelets (Bld) [#/Vol] 160 10*3/uL 150-450 [facility] Potassium (Unsp spec) [Mass/ Vol]Ordered By: Saurabh Fernandez on 12-09-2024 Potassium [Moles/Vol] 4.4 mmol/L 3.3-5.1 [facility] RBC Auto (Bld) [#/Vol]Ordere d By: Saurabh Fernandez on 12-09-2024 RBC (Bld) [#/Vol] 4.08 10*6/uL Low 4.2-5.4 [facility] Screening total cholesterol/ high density lipoprotein (HDL) cholesterol ratioOrdered By: Saurabh Fernandez on 12-09-2024 Cholesterol.total/Chol esterol in HDL [Mass ratio] 4.34 {ratio} [facility] Serum creatinine measurement (mass/volume)Ordered By: Saurabh Fernandez on 12-09-2024 Creatinine [Mass/Vol] 0.73 mg/dL 0.70-1.20 [facility] Serum globulin measurementOr dered By: Saurabh Fernandez on 12-09-2024 Globulin (S) [Mass/Vol] 3.0 g/dL 2.2-4.2 [facility] Serum glucose measurement (m ass/volume)Ordered By: Saurabh Fernandez on 12-09-2024 Glucose [Mass/Vol] 85 mg/dL 70-99 [facility] Serum or plasma alanine macedo otransferase (ALT) measurementOrdered By: Saurabh Fernandez on 12-09-2024 ALT [Catalytic activity/Vol] 11 U/L <35 [facility] Serum or plasma albumin tyrese urement (mass/volume)Ordered By: Saurabh Fernandez on 12-09-2024 Albumin [Mass/Vol] 3.3 g/dL Low 3.4-4.8 [facility] Serum or plasma albumin/glob ulin mass ratioOrdered By: Saurabh Fernandez on 12-09-2024 Albumin/Globulin [Mass ratio] 1.1 {ratio} 0.9-2.4 [facility] Serum or plasma alkaline elia sphatase measurementOrdered By: Saurabh Fernandez on 12-09-2024 ALP [Catalytic activity/Vol] 62 U/L 35-104 [facility] Serum or plasma calcium tyrese urement (mass/volume)Ordered By: Saurabh Fernandez on 12-09-2024 Calcium [Mass/Vol] 8.9 mg/dL 7.6-11.0 [facility] Serum or plasma cholesterol in HDL measurement (mass/volume)Ordered By: Saurabh Fernandez on 12-09-2024 Cholesterol in HDL [Mass/Vol] 47 mg/dL >40 [facility] Comment on above: National Cholesterol Education Program (NCEP) guidelines:<40 mg/dL: Low HDL-cholesterol (major risk factor for CHD)>= 60 mg/dL: High HDL-cholesterol (negative risk factor for CHD)HDL-cholesterol is affected by a number of factors, e.g. smoking, exercise, hormones, sex and age. Serum or plasma cholesterol measurement (mass/volume)Ordered By: Saurabh Fernandez on 12-09-2024 Cholesterol [Mass/Vol] 203 mg/dL High <201 [facility] Comment on above: Cholesterol level, D esirable <200 mg/dLBorderline high cholesterol 200-239 mg/dLHigh cholesterol >=240 mg/dLRecommendations of the NCEP Adult Treatment Panel for the following risk-cutoff thresholds for the [place] population. Serum or plasma urea nitroge n measurement (mass/volume)Ordered By: Saurabh Fernandez on 12-09-2024 Urea nitrogen [Mass/Vol] 16 mg/dL 4-19 [facility] Sodium levelOrdered By: Saurabh Fernandez on 12-09-2024 Sodium [Moles/Vol] 142 mmol/L 133-145 [facility] TSH DL <= 0.005 mIU/L QnOrde red By: Saurabh Fernandez on 12-09-2024 Thyroid Stimulating Hormone (TSH) 2.930 uIU/mL 0.300-4.200 [facility] Thyroid Stim Hormone (TSH)on 12-09-2024 TSH 2.930 uIU/mL Normal 0.300-4.200 [facility] Comment on above: Order Comment: 105-1 Performed By: #### L 100.0100, L500.4050, L500.4100, L501.9520 #### [facility] [place], [address] Total proteinOrdered By: Ambreen Fernandez on 12-09-2024 Protein [Mass/Vol] 6.3 g/dL 5.9-8.4 [facility] Triglycerides measurementOrd ered By: Saurabh Fernandez on 12-09-2024 Triglyceride [Mass/Vol] 180 mg/dL <199 [facility] Comment on above: The drugs N-Acetylcy steine and Metamizole may falsely depress this assay. Normal range: <150 mg/dLBorderline High: 150-199 mg/dLHigh: 200-499 mg/dLVery High: >500 mg/dL White blood cell (WBC) count Ordered By: Saurabh Fernandez on 12-09-2024 WBC (Bld) [#/Vol] 7.8 10*3/uL 4.4-11.0 [facility] L506.1001on 11-22-2024 Vitamin D 25-OH 45.2 ng/mL Normal 30-100 [facility] Comment on above: Order Comment: 105-1 Result Comment: Kerline min D Status Deficiency: <20 ng/mL (50nmol/L) Insufficiency: 20-30 ng/mL (50-75 nmol/L) Sufficiency: 30-100 ng/mL (75-250 nmol/L) Toxicity: >100 ng/mL (>250 nmol/L) Performed By: #### L 100.0100, L500.4050, L500.4100, L501.9520 #### [facility] [address] [place], [address] Valproate [Mass/Vol]Ordered By: Saurabh Fernandez on 11-22-2024 Valproic Acid (Depakene) Level 20 ug/mL Low 50-100 [facility] Comment on above: Valproic Acid concen trations >100 ug/mL are potentially toxic. Valproic Acid (Depakene) Lev ladonna 11-22-2024 VALPROIC ACID 20 ug/mL Low 50-100 [facility] Comment on above: Order Comment: 105-1 Result Comment: Valp roic Acid concentrations >100 ug/mL are potentially toxic. Performed By: #### L 100.0100, L500.4050, L500.4100, L501.9520 #### [facility] [address] [place], [place], [id number] Vitamin D, 25-hydroxyOrdered By: Saurabh Fernandez on 11-22-2024 Vitamin D 25-Hydroxy 45.2 ng/mL 30-100 [facility] Comment on above: Vitamin D StatusDefi ciency: <20 ng/mL (50nmol/L)Insufficiency: 20-30 ng/mL (50-75 nmol/L)Sufficiency: 30-100 ng/mL (75-250 nmol/L)Toxicity: >100 ng/mL (>250 nmol/L) BUN/creatinine ratioOrdered By: Saurabh Fernandez on 11-17-2024 Urea nitrogen/Creatinine [Mass ratio] 27.0 mg/mg High 10-20 [facility] Basic Metabolic Profile (BMP )on 11-17-2024 BUN/CRE 27.0 RATIO High [facility] Comment on above: Order Comment: 105-1 Performed By: #### L 500.2500 #### [facility] [address] [facility] [place], [place], [id number] (496) GFR/1.73 sq M.predicted among non-blacks MDRD (S/P/Bld) [Vol rate/Area] 78 mL/min/{1.73_m2} Normal >60 [facility] Comment on above: Order Comment: 105-1 Result Comment: mL/m in/1.73m2 CKD-EPI Creatinine Equation (2020) Performed By: #### L 500.2500 #### [facility] [address] [place], [place], [id number] Carbon dioxide measurementOr dered By: Saurabh Fernandez on 11-17-2024 CO2 [Moles/Vol] 25.7 mmol/L Normal 22.0-29.0 [facility] Comment on above: Order Comment: 105-1 Performed By: #### L 500.2500 #### [facility] [address] [facility] [address] Chloride measurementOrdered By: Saurabh Fernandez on 11-17-2024 Chloride [Moles/Vol] 107 mmol/L Normal 96-108 [facility] Comment on above: Order Comment: 105-1 Performed By: #### L 500.2500 #### [facility] [address] [facility] [place], [place], [phone] ([phone] GFR/1.73 sq M.predicted layne g non-blacks MDRD (S/P/Bld) [Vol rate/Area]Ordered By: Saurabh Fernandez on 11-17-2024 Estimated GFR (MDRD) Non-Af Amer 78 >60 [facility] Comment on above: mL/min/1.73m2 CKD-EP I Creatinine Equation (2020) Serum glucose measurement (m ass/volume)Ordered By: Saurabh Fernandez on 11-17-2024 Glucose [Mass/Vol] 83 mg/dL Normal 70-99 [facility] Comment on above: Order Comment: 105-1 Performed By: #### L 500.2500 #### [facility] [address] [place], [phone] (014) Serum or plasma anion gap de termination (moles/volume)Ordered By: Saurabh Fernandez on 11-17-2024 Anion gap [Moles/Vol] 9 mmol/L Normal 5-15 [facility] Comment on above: Order Comment: 105-1 Performed By: #### L 500.2500 #### [facility] [address] [place], [address] Serum or plasma calcium tyrese urement (mass/volume)Ordered By: Saurabh Fernandez on 11-17-2024 Calcium [Mass/Vol] 8.4 mg/dL Normal 7.6-11.0 [facility] Comment on above: Order Comment: 105-1 Performed By: #### L 500.2500 #### [facility] [address] [place], [place], [address] (343) Serum or plasma creatinine m easurement (moles/volume)Ordered By: Saurabh Fernandez on 11-17-2024 Creatinine [Mass/Vol] 0.8 mg/dL Normal 0.6-1.0 [facility] Comment on above: Order Comment: 105-1 Performed By: #### L 500.2500 #### [facility] [address] [place], [place], [phone] ([phone] Serum or plasma potassium me asurementOrdered By: Saurabh Fernandez on 11-17-2024 Potassium [Moles/Vol] 4.5 mmol/L Normal 3.3-5.1 [facility] Comment on above: Hemolysis present, R esults could be affected. Order Comment: 105-1 Result Comment: Hemo lysis present, Results??could be affected. ?? Performed By: #### L 500.2500 #### [facility] [address] [place], [phone] ([phone] Serum or plasma sodium measu rement (moles/volume)Ordered By: Saurabh Fernandez on 02-26-2025 Sodium [Moles/Vol] 141 mmol/L Normal 133-145 [facility] Comment on above: Order Comment: 105-1 Performed By: #### L 500.2500 #### [facility] [address] [place], [address] Serum or plasma urea nitroge n measurement (mass/volume)Ordered By: Saurabh Fernandez on 11-17-2024 Urea nitrogen [Mass/Vol] 21 mg/dL High 4-19 [facility] Comment on above: Order Comment: 105-1 Performed By: #### L 500.2500 #### [facility] [address] [place], [address] Basic Metabolic Profile (BMP )on 11-10-2024 BUN/CRE 27.0 RATIO High 10-20 [facility] Comment on above: Order Comment: 105-1 Performed By: #### L 100.0100, L500.4050, L500.4100, L501.9520 #### [facility] [address] [place], [address] CA,Total 8.7 mg/dL Normal 8.5-10.1 [facility] Comment on above: Order Comment: 105-1 Performed By: #### L 100.0100, L500.4050, L500.4100, L501.9520 #### [facility] [address] [place], [address] Chloride [Moles/Vol] 118 mmol/L High 98-107 [facility] Comment on above: Order Comment: 105-1 Performed By: #### L 100.0100, L500.4050, L500.4100, L501.9520 #### [facility] [address] [place], [address] CO2 [Moles/Vol] 31.0 mmol/L Normal 21.0-32.0 [facility] Comment on above: Order Comment: 105-1 Performed By: #### L 100.0100, L500.4050, L500.4100, L501.9520 #### [facility] [address] [place], [address] Creatinine [Mass/Vol] 0.81 mg/dL Normal 0.55-1.02 [facility] Comment on above: Order Comment: 105-1 Result Comment: The validity of the calculated GFR GFRAA in patients over 70 years has not been determined. Clinical correlation is essential. Performed By: #### L 100.0100, L500.4050, L500.4100, L501.9520 #### [facility] [address] [place], [address] EST GFR - AA 87 mL/min Normal >60 [facility] Comment on above: Order Comment: 105-1 Result Comment: Afri can [place] GFR Calc Performed By: #### L 100.0100, L500.4050, L500.4100, L501.9520 #### [facility] [address] [place], [address] GAP 2 Low 5-15 [facility] Comment on above: Order Comment: 105-1 Performed By: #### L 100.0100, L500.4050, L500.4100, L501.9520 #### [facility] [address] [place], [address] GFR/1.73 sq M.predicted among non-blacks MDRD (S/P/Bld) [Vol rate/Area] 72 mL/min/{1.73_m2} Normal >60 [facility] Comment on above: Order Comment: 105-1 Result Comment: Non- GFR Calc Performed By: #### L 100.0100, L500.4050, L500.4100, L501.9520 #### [facility] [address] [place], [address] Glucose [Mass/Vol] 96 mg/dL Normal 74-106 [facility] Comment on above: Order Comment: 105-1 Performed By: #### L 100.0100, L500.4050, L500.4100, L501.9520 #### [facility] [address] [place], [address] Potassium [Moles/Vol] 3.9 mmol/L Normal 3.5-5.1 [facility] Comment on above: Order Comment: 105-1 Performed By: #### L 100.0100, L500.4050, L500.4100, L501.9520 #### [facility] [address] [place], [address] Sodium [Moles/Vol] 151 mmol/L High 136-145 [facility] Comment on above: Order Comment: 105-1 Performed By: #### L 100.0100, L500.4050, L500.4100, L501.9520 #### [facility] [address] [place], [address] Urea nitrogen [Mass/Vol] 22 mg/dL High 7-18 [facility] Comment on above: Order Comment: 105-1 Performed By: #### L 100.0100, L500.4050, L500.4100, L501.9520 #### [facility] [address] [place], [address] Blood urea nitrogen (BUN)/cr eatinine ratioOrdered By: Saurabh Fernandez on 11-10-2024 Urea nitrogen/Creatinine [Mass ratio] 27.0 mg/mg High 10-20 [facility] CBC-Complete Blood Cnt No Di ffon 11-10-2024 Erythrocyte distribution width (RBC) [Ratio] 14.4 % Normal 11.6-14.6 [facility] Comment on above: Order Comment: 105-1 Performed By: #### L 100.0100, L500.4050, L500.4100, L501.9520 #### [facility] [address] [place], [address] Hematocrit (Bld) [Volume fraction] 41.3 % Normal 37-47 [facility] Comment on above: Order Comment: 105-1 Performed By: #### L 100.0100, L500.4050, L500.4100, L501.9520 #### [facility] [address] [place], [address] Hemoglobin (Bld) [Mass/Vol] 12.5 g/dL Normal 12.0-15.0 [facility] Comment on above: Order Comment: 105-1 Performed By: #### L 100.0100, L500.4050, L500.4100, L501.9520 #### [facility] [address] [place], [address] MCH (RBC) [Entitic mass] 30.9 pg Normal 27.0-32.0 [facility] Comment on above: Order Comment: 105-1 Performed By: #### L 100.0100, L500.4050, L500.4100, L501.9520 #### [facility] [address] [place], [address] MCHC (RBC) [Mass/Vol] 30.3 g/dL Low 32-36 [facility] Comment on above: Order Comment: 105-1 Performed By: #### L 100.0100, L500.4050, L500.4100, L501.9520 #### [facility] [address] [place], [address] MCV (RBC) [Entitic vol] 102.0 fL High 81-99 [facility] Comment on above: Order Comment: 105-1 Performed By: #### L 100.0100, L500.4050, L500.4100, L501.9520 #### [facility] [address] [place], [address] Platelet mean volume (Bld) [Entitic vol] 10.0 fL Normal 6.2-12.0 [facility] Comment on above: Order Comment: 105-1 Performed By: #### L 100.0100, L500.4050, L500.4100, L501.9520 #### [facility] [address] [place], [address] Platelets (Bld) [#/Vol] 351 10*3/uL Normal 150-450 [facility] Comment on above: Order Comment: 105-1 Performed By: #### L 100.0100, L500.4050, L500.4100, L501.9520 #### [facility] [address] [place], [address] RBC (Bld) [#/Vol] 4.05 10*6/uL Low 4.2-5.4 [facility] Comment on above: Order Comment: 105-1 Performed By: #### L 100.0100, L500.4050, L500.4100, L501.9520 #### [facility] [address] [place], [address] RDW SD 53.7 fl High 35.1-43.9 [facility] Comment on above: Order Comment: 105-1 Performed By: #### L 100.0100, L500.4050, L500.4100, L501.9520 #### [facility] [address] [place], [address] WBC (Bld) [#/Vol] 8.5 10*3/uL Normal 4.4-11.0 [facility] Comment on above: Order Comment: 105-1 Performed By: #### L 100.0100, L500.4050, L500.4100, L501.9520 #### [facility] [address] [place], [address] Carbon dioxide measurementOr dered By: Saurabh Fernandez on 11-10-2024 CO2 [Moles/Vol] 31.0 mmol/L 21.0-32.0 [facility] Chloride measurementOrdered By: Saurabh Fernandez on 11-10-2024 Chloride [Moles/Vol] 118 mmol/L High 98-107 [facility] Erythrocyte distribution wid th (RBC) [Ratio]Ordered By: Saurabh Fernandez on 11-10-2024 Erythrocyte distribution width (RBC) [Entitic vol] 53.7 fL High 35.1-43.9 [facility] Erythrocyte distribution wid th ratioOrdered By: Saurabh Fernandez on 11-10-2024 Erythrocyte distribution width (RBC) [Ratio] 14.4 % 11.6-14.6 [facility] Estimated glomerular filtrat ion rate (GFR) AmericanOrdered By: Saurabh Fernandez on 11-10-2024 Estimated GFR (MDRD) Amer 87 mL/min >60 [facility] Comment on above: GFR Calc Glomerular filtration rate ( GFR) estimationOrdered By: Saurabh Fernandez on 11-10-2024 Estimated GFR (MDRD) Non-Af Amer 72 mL/min >60 [facility] Comment on above: Non- GFR Calc Glucose measurementOrdered B y: Saurabh Fernandez on 11-10-2024 Glucose [Mass/Vol] 96 mg/dL 74-106 [facility] Hematocrit Auto (Bld) [Volum e fraction]Ordered By: Saurabh Fernandez on 11-10-2024 Hematocrit (Bld) [Volume fraction] 41.3 % 37-47 [facility] Hemoglobin measurementOrdere d By: Saurabh Fernandez on 11-10-2024 Hemoglobin (Bld) [Mass/Vol] 12.5 g/dL 12.0-15.0 [facility] MCV (mean corpuscular volume ) determinationOrdered By: Saurabh Fernandez on 11-10-2024 MCV (RBC) [Entitic vol] 102.0 fL High 81-99 [facility] Mean corpuscular hemoglobin (MCH) determinationOrdered By: Saurabh Fernandez on 11-10-2024 MCH (RBC) [Entitic mass] 30.9 pg 27.0-32.0 [facility] Mean corpuscular hemoglobin concentration (MCHC) determinationOrdered By: Saurabh Fernandez on 11-10-2024 MCHC (RBC) [Mass/Vol] 30.3 g/dL Low 32-36 [facility] Mean platelet volume determi nationOrdered By: Saurabh Fernandez on 11-10-2024 Platelet mean volume (Bld) [Entitic vol] 10.0 fL 6.2-12.0 [facility] Platelet countOrdered By: Nieto on 11-10-2024 Platelets (Bld) [#/Vol] 351 10*3/uL 150-450 [facility] Potassium measurementOrdered By: Saurabh Fernandez on 11-10-2024 Potassium [Moles/Vol] 3.9 mmol/L 3.5-5.1 [facility] RBC Auto (Bld) [#/Vol]Ordere d By: Saurabh Fernandez on 11-10-2024 RBC (Bld) [#/Vol] 4.05 10*6/uL Low 4.2-5.4 [facility] Serum anion gap measurementO rdered By: Saurabh Fernandez on 11-10-2024 Anion gap [Moles/Vol] 2 mmol/L Low 5-15 [facility] Serum or plasma calcium tyrese urement (mass/volume)Ordered By: Saurabh Fernandez on 11-10-2024 Calcium [Mass/Vol] 8.7 mg/dL 8.5-10.1 [facility] Serum or plasma creatinine m easurement (mass/volume)Ordered By: Saurabh Fernandez on 11-10-2024 Creatinine [Mass/Vol] 0.81 mg/dL 0.55-1.02 [facility] Comment on above: The validity of the calculated GFR & GFRAA in patients over 70 years has not been determined. Clinical correlation is essential. Serum or plasma urea nitroge n measurement (mass/volume)Ordered By: Saurabh Fernandez on 11-10-2024 Urea nitrogen [Mass/Vol] 22 mg/dL High 7-18 [facility] Sodium levelOrdered By: Saurabh Fernandez on 11-10-2024 Sodium [Moles/Vol] 151 mmol/L High 136-145 [facility] White blood cell (WBC) count Ordered By: Saurabh Fernandez on 11-10-2024 WBC (Bld) [#/Vol] 8.5 10*3/uL 4.4-11.0 [facility] Absolute neutrophil countOrd ered By: Saurabh Fernandez on 09-16-2024 Neutrophils (Bld) [#/Vol] 3.3 10*3/uL 2.0-7.7 [facility] Albumin to globulin ratioOrd ered By: Saurabh Fernandez on 09-16-2024 Albumin/Globulin [Mass ratio] 0.7 {ratio} Low 0.9-2.4 [facility] Basophil percentageOrdered B y: Saurabh Fernandez on 09-16-2024 Basophils/100 WBC (Bld) 1.0 % 0-1 [facility] Bilirubin, totalOrdered By: Saurabh Fernandez on 09-16-2024 Bilirubin [Mass/Vol] 0.50 mg/dL 0.20-1.00 [facility] Comment on above: For patients on eltr ombopag therapy, use of Dimension Simpson TBIL is not recommended. Blood urea nitrogen (BUN)/cr eatinine ratioOrdered By: Saurabh Fernandez on 09-16-2024 Urea nitrogen/Creatinine [Mass ratio] 30.8 mg/mg High 07-11 [facility] CBC W/Diff, Automatedon 08-23 Absolute Lymph 3.46 X10 3/uL Normal 0.83-4.51 [facility] Comment on above: Order Comment: 105.1 Performed By: #### L 100.0100, L500.4050, L500.4100, L501.9520 #### [facility] [address] [place], [address] Absolute Neut 3.3 X10 3/uL Normal 2.0-7.7 [facility] Comment on above: Order Comment: 105.1 Performed By: #### L 100.0100, L500.4050, L500.4100, L501.9520 #### [facility] [address] [place], [address] Basophils/100 WBC (Bld) 1.0 % Normal 0-1 [facility] Comment on above: Order Comment: 105.1 Performed By: #### L 100.0100, L500.4050, L500.4100, L501.9520 #### [facility] [address] [place], [address] Eosinophils/100 WBC (Bld) 4.6 % Normal 0-5 [facility] Comment on above: Order Comment: 105.1 Performed By: #### L 100.0100, L500.4050, L500.4100, L501.9520 #### [facility] [address] [place], [address] Erythrocyte distribution width (RBC) [Ratio] 13.3 % Normal 11.6-14.6 [facility] Comment on above: Order Comment: 105.1 Performed By: #### L 100.0100, L500.4050, L500.4100, L501.9520 #### [facility] [address] [place], [address] Hematocrit (Bld) [Volume fraction] 46.4 % Normal 37-47 [facility] Comment on above: Order Comment: 105.1 Performed By: #### L 100.0100, L500.4050, L500.4100, L501.9520 #### [facility] [address] [place], [address] Hemoglobin (Bld) [Mass/Vol] 15.0 g/dL Normal 12.0-15.0 [facility] Comment on above: Order Comment: 105.1 Performed By: #### L 100.0100, L500.4050, L500.4100, L501.9520 #### [facility] [address] [place], [address] IG% 0.400 Normal 0.0-0.9 [facility] Comment on above: Order Comment: 105.1 Result Comment: IG% - Immature Granulocytes (promyelocytes, myelocytes and metamyelocytes) > 1% indicates that a LEFT SHIFT is Present. Performed By: #### L 100.0100, L500.4050, L500.4100, L501.9520 #### [facility] [address] [place], [address] Lymphocytes/100 WBC (Bld) 44.1 % High 19-41 [facility] Comment on above: Order Comment: 105.1 Performed By: #### L 100.0100, L500.4050, L500.4100, L501.9520 #### [facility] [address] [place], [address] MCH (RBC) [Entitic mass] 32.1 pg High 27.0-32.0 [facility] Comment on above: Order Comment: 105.1 Performed By: #### L 100.0100, L500.4050, L500.4100, L501.9520 #### [facility] [address] [place], [address] MCHC (RBC) [Mass/Vol] 32.3 g/dL Normal 32-36 [facility] Comment on above: Order Comment: 105.1 Performed By: #### L 100.0100, L500.4050, L500.4100, L501.9520 #### [facility] [address] [place], [address] MCV (RBC) [Entitic vol] 99.1 fL High 81-99 [facility] Comment on above: Order Comment: 105.1 Performed By: #### L 100.0100, L500.4050, L500.4100, L501.9520 #### [facility] [address] [place], [address] Monocytes/100 WBC (Bld) 7.7 % Normal 0-10 [facility] Comment on above: Order Comment: 105.1 Performed By: #### L 100.0100, L500.4050, L500.4100, L501.9520 #### [facility] [address] [place], [address] Neutrophils/100 WBC (Bld) 42.2 % Low 47-70 [facility] Comment on above: Order Comment: 105.1 Performed By: #### L 100.0100, L500.4050, L500.4100, L501.9520 #### [facility] [address] [place], [address] Nucleated RBC (Bld) [#/Vol] 0 10*3/uL Normal 0-5 [facility] Comment on above: Order Comment: 105.1 Performed By: #### L 100.0100, L500.4050, L500.4100, L501.9520 #### [facility] [address] [place], [address] Platelet mean volume (Bld) [Entitic vol] 11.6 fL Normal 6.2-12.0 [facility] Comment on above: Order Comment: 105.1 Performed By: #### L 100.0100, L500.4050, L500.4100, L501.9520 #### [facility] [address] [place], [address] Platelets (Bld) [#/Vol] 209 10*3/uL Normal 150-450 [facility] Comment on above: Order Comment: 105.1 Performed By: #### L 100.0100, L500.4050, L500.4100, L501.9520 #### [facility] [address] [place], [address] RBC (Bld) [#/Vol] 4.68 10*6/uL Normal 4.2-5.4 [facility] Comment on above: Order Comment: 105.1 Performed By: #### L 100.0100, L500.4050, L500.4100, L501.9520 #### [facility] [address] [place], [address] RDW SD 48.9 fl High 35.1-43.9 [facility] Comment on above: Order Comment: 105.1 Performed By: #### L 100.0100, L500.4050, L500.4100, L501.9520 #### [facility] [address] [place], [address] WBC (Bld) [#/Vol] 7.8 10*3/uL Normal 4.4-11.0 [facility] Comment on above: Order Comment: 105.1 Performed By: #### L 100.0100, L500.4050, L500.4100, [id number] #### [facility] [address] [place], [address] Carbon dioxide measurementOr dered By: Saurabh Fernandez on 09-16-2024 CO2 [Moles/Vol] 31.0 mmol/L 21.0-32.0 [facility] Chloride measurementOrdered By: Saurabh eFrnandez on 09-16-2024 Chloride [Moles/Vol] 109 mmol/L High 98-107 [facility] Comprehensive Metabolic Prof ilon 09-16-2024 Albumin [Mass/Vol] 2.8 g/dL Low 3.2-5.0 [facility] Comment on above: Order Comment: 105-1 Performed By: #### L 100.0100, L500.4050, L500.4100, [id number] #### [facility] [address] [place], [address] Albumin/Globulin [Mass ratio] 0.7 {ratio} Low 0.9-2.4 [facility] Comment on above: Order Comment: 105-1 Performed By: #### L 100.0100, L500.4050, L500.4100, [id number] #### [facility] [address] [place], [address] ALK P 69 U/L Normal 45-117 [facility] Comment on above: Order Comment: 105-1 Performed By: #### L 100.0100, L500.4050, L500.4100, [id number] #### [facility] [address] [place], [address] ALT [Catalytic activity/Vol] 21 U/L Normal 13-56 [facility] Comment on above: Order Comment: 105-1 Performed By: #### L 100.0100, L500.4050, L500.4100, [id number] #### [facility] [address] [place], [address] AST [Catalytic activity/Vol] 17 U/L Normal 15-37 [facility] Comment on above: Order Comment: 105-1 Performed By: #### L 100.0100, L500.4050, L500.4100, [id number] #### [facility] [address] [place], [address] Bilirubin [Mass/Vol] 0.50 mg/dL Normal 0.20-1.00 [facility] Comment on above: Order Comment: 105-1 Result Comment: For patients on eltrombopag therapy, use of Dimension Simpson TBIL is not recommended. Performed By: #### L 100.0100, L500.4050, L500.4100, [id number] #### [facility] [address] [place], [address] BUN/CRE 30.8 RATIO High 10-20 [facility] Comment on above: Order Comment: 105-1 Performed By: #### L 100.0100, L500.4050, L500.4100, [id number] #### [facility] [address] [place], [address] CA,Total 8.7 mg/dL Normal 8.5-10.1 [facility] Comment on above: Order Comment: 105-1 Performed By: #### L 100.0100, L500.4050, L500.4100, [id number] #### [facility] [address] [place], [address] Chloride [Moles/Vol] 109 mmol/L High 98-107 [facility] Comment on above: Order Comment: 105-1 Performed By: #### L 100.0100, L500.4050, L500.4100, [id number] #### [facility] [address] [place], [address] CO2 [Moles/Vol] 31.0 mmol/L Normal 21.0-32.0 [facility] Comment on above: Order Comment: 105-1 Performed By: #### L 100.0100, L500.4050, L500.4100, [id number] #### [facility] [address] [place], [address] Creatinine [Mass/Vol] 1.04 mg/dL High 0.55-1.02 [facility] Comment on above: Order Comment: 105-1 Result Comment: The validity of the calculated GFR GFRAA in patients over 70 years has not been determined. Clinical correlation is essential. Performed By: #### L 100.0100, L500.4050, L500.4100, L501.9520 #### [facility] [address] [place], [address] EST GFR - AA 65 mL/min Normal >60 [facility] Comment on above: Order Comment: 105-1 Result Comment: Afri can Bel[place]ian GFR Calc Performed By: #### L 100.0100, L500.4050, L500.4100, [id number] #### [facility] [address] [place], [address] GAP 2 Low 5-15 [facility] Comment on above: Order Comment: 105-1 Performed By: #### L 100.0100, L500.4050, L500.4100, [id number] #### [facility] [address] [place], [address] GFR/1.73 sq M.predicted among non-blacks MDRD (S/P/Bld) [Vol rate/Area] 54 mL/min/{1.73_m2} Low >60 [facility] Comment on above: Order Comment: 105-1 Result Comment: Non- GFR Calc Performed By: #### L 100.0100, L500.4050, L500.4100, L501.9520 #### [facility] [address] [place], [address] Globulin (S) [Mass/Vol] 4.0 g/dL Normal 2.2-4.2 [facility] Comment on above: Order Comment: 105-1 Performed By: #### L 100.0100, L500.4050, L500.4100, [id number] #### [facility] [address] [place], [address] Glucose [Mass/Vol] 89 mg/dL Normal 74-106 [facility] Comment on above: Order Comment: 105-1 Performed By: #### L 100.0100, L500.4050, L500.4100, [id number] #### [facility] [address] [place], [address] Potassium [Moles/Vol] 4.4 mmol/L Normal 3.5-5.1 [facility] Comment on above: Order Comment: 105-1 Performed By: #### L 100.0100, L500.4050, L500.4100, [id number] #### [facility] [address] [place], [address] Sodium [Moles/Vol] 142 mmol/L Normal 136-145 [facility] Comment on above: Order Comment: 105-1 Performed By: #### L 100.0100, L500.4050, L500.4100, [id number] #### [facility] [address] [place], [address] T PROT 6.8 g/dL Normal 6.4-8.2 [facility] Comment on above: Order Comment: 105-1 Performed By: #### L 100.0100, L500.4050, L500.4100, [id number] #### [facility] [address] [place], [address] Urea nitrogen [Mass/Vol] 32 mg/dL High 7-18 [facility] Comment on above: Order Comment: 105-1 Performed By: #### L 100.0100, L500.4050, L500.4100, [id number] #### [facility] [address] [place], [address] Eosinophil percentageOrdered By: Saurabh Fernandez on 09-16-2024 Eosinophils/100 WBC (Bld) 4.6 % 0-5 [facility] Erythrocyte distribution wid th (RBC) [Ratio]Ordered By: Saurabh Fernandez on 09-16-2024 Erythrocyte distribution width (RBC) [Entitic vol] 48.9 fL High 35.1-43.9 [facility] Erythrocyte distribution wid th ratioOrdered By: Saurabh Fernandez on 09-16-2024 Erythrocyte distribution width (RBC) [Ratio] 13.3 % 11.6-14.6 [facility] Estimated glomerular filtrat ion rate (GFR) AmericanOrdered By: Saurabh Fernandez on 09-16-2024 Estimated GFR (MDRD) Amer 65 mL/min >60 [facility] Comment on above: GFR Calc Glomerular filtration rate ( GFR) estimationOrdered By: Saurabh Fernandez on 09-16-2024 Estimated GFR (MDRD) Non-Af Amer 54 mL/min Low >60 [facility] Comment on above: Non- GFR Calc Glucose measurementOrdered B y: Saurabh Fernandez on 09-16-2024 Glucose [Mass/Vol] 89 mg/dL 74-106 [facility] Hematocrit Auto (Bld) [Volum e fraction]Ordered By: Saurabh Fernandez on 09-16-2024 Hematocrit (Bld) [Volume fraction] 46.4 % 37-47 [facility] Hemoglobin measurementOrdere d By: Saurabh Fernandez on 09-16-2024 Hemoglobin (Bld) [Mass/Vol] 15.0 g/dL 12.0-15.0 [facility] High density lipoprotein (HD L) measurementOrdered By: Saurabh Fernandez on 09-16-2024 Cholesterol in HDL [Mass/Vol] 52 mg/dL >40 [facility] Comment on above: The drugs N-Acetylcy steine and Metamizole may falsely depress this assay. Reference Range HDL <40 mg/dL Low HDL Cholesterol HDL >or= 60 mg/dL High HDL Cholesterol Immature granulocytes/100 WB C Auto (Bld)Ordered By: Saurabh Fernandez on 09-16-2024 Immature granulocytes/100 WBC (Bld) 0.400 % 0.0-0.9 [facility] Comment on above: IG% - Immature Granu locytes (promyelocytes, myelocytes and metamyelocytes) > 1% indicates that a LEFT SHIFT is Present. Laboratory - Chemistry and C hemistry - challengeOrdered By: Saurabh Fernandez on 09-16-2024 AST [Catalytic activity/Vol] 17 U/L 15-37 [facility] Lipid Profileon 09-16-2024 Cholesterol [Mass/Vol] 190 mg/dL Normal 200 [facility] Comment on above: Order Comment: 105-1 Result Comment: <200 mg/dL Desirable 200-240 mg/dL Borderline >240 mg/dL High Risk Performed By: #### L 100.0100, L500.4050, L500.4100, L501.9520 #### [facility] [address] [place], [address] Cholesterol in HDL [Mass/Vol] 52 mg/dL Normal [facility] Comment on above: Order Comment: 105-1 Result Comment: The drugs N-Acetylcysteine and Metamizole may falsely depress this assay. Reference Range HDL <40 mg/dL Low HDL Cholesterol HDL >or= 60 mg/dL High HDL Cholesterol Performed By: #### L 100.0100, L500.4050, L500.4100, L501.9520 #### [facility] [address] [place], [address] Cholesterol in LDL [Mass/Vol] 113 mg/dL Normal 0-130 [facility] Comment on above: Order Comment: 105-1 Performed By: #### L 100.0100, L500.4050, L500.4100, L501.9520 #### [facility] [address] [place], [address] Cholesterol in VLDL [Mass/Vol] 25 mg/dL Normal 5-40 [facility] Comment on above: Order Comment: 105-1 Performed By: #### L 100.0100, L500.4050, L500.4100, L501.9520 #### [facility] [address] [place], [address] Triglyceride [Mass/Vol] 125 mg/dL Normal [facility] Comment on above: Order Comment: 105-1 Result Comment: The drugs N-Acetylcysteine and Metamizole may falsely depress this assay. Serum Triglycerides Reference Interval Normal <150 mg/dL Borderline high 150 - 199 mg/dL High 200 - 499 mg/dL Very High > or = 500 mg/dL Performed By: #### L 100.0100, L500.4050, L500.4100, L501.9520 #### [facility] [address] [place], [address] Low density lipoprotein (LDL ) cholesterol measurementOrdered By: Saurabh Fernandez on 09-16-2024 Cholesterol in LDL [Mass/Vol] 113 mg/dL 0-130 [facility] Lymphocytes Auto (Unsp spec) [#/Vol]Ordered By: Saurabh Fernandez on 09-16-2024 Lymphocytes (Bld) [#/Vol] 3.46 10*3/uL 0.83-4.51 [facility] Lymphocytes/100 WBC Auto (Un sp spec)Ordered By: Saurabh Fernandez on 09-16-2024 Lymphocytes/100 WBC (Bld) 44.1 % High 19-41 [facility] MCV (mean corpuscular volume ) determinationOrdered By: Saurabh Fernandez on 09-16-2024 MCV (RBC) [Entitic vol] 99.1 fL High 81-99 [facility] Mean corpuscular hemoglobin (MCH) determinationOrdered By: Saurabh Fernandez on 09-16-2024 MCH (RBC) [Entitic mass] 32.1 pg High 27.0-32.0 [facility] Mean corpuscular hemoglobin concentration (MCHC) determinationOrdered By: Saurabh Fernandez on 09-16-2024 MCHC (RBC) [Mass/Vol] 32.3 g/dL 32-36 [facility] Mean platelet volume determi nationOrdered By: Saurabh Fernandez on 09-16-2024 Platelet mean volume (Bld) [Entitic vol] 11.6 fL 6.2-12.0 [facility] Monocyte percentageOrdered B y: Saurabh Fernandez on 09-16-2024 Monocytes/100 WBC (Bld) 7.7 % 0-10 [facility] Neutrophil percentageOrdered By: Saurabh Fernandez on 09-16-2024 Neutrophils/100 WBC (Bld) 42.2 % Low 47-70 [facility] Nucleated red blood cell per centageOrdered By: Saurabh Fernandez on 09-16-2024 Nucleated RBC/100 WBC (Bld) [Ratio] 0 % 0-5 [facility] Platelet countOrdered By: Nieto on 09-16-2024 Platelets (Bld) [#/Vol] 209 10*3/uL 150-450 [facility] Potassium measurementOrdered By: Saurabh Fernandez on 09-16-2024 Potassium [Moles/Vol] 4.4 mmol/L 3.5-5.1 [facility] RBC Auto (Bld) [#/Vol]Ordere d By: Saurabh Fernandez on 09-16-2024 RBC (Bld) [#/Vol] 4.68 10*6/uL 4.2-5.4 [facility] Serum anion gap measurementO rdered By: Saurabh Fernandez on 09-16-2024 Anion gap [Moles/Vol] 2 mmol/L Low 5-15 [facility] Serum globulin measurementOr dered By: Saurabh Fernandez on 09-16-2024 Globulin (S) [Mass/Vol] 4.0 g/dL 2.2-4.2 [facility] Serum or plasma alanine macedo otransferase (ALT) measurementOrdered By: Saurabh Fernandez on 09-16-2024 ALT [Catalytic activity/Vol] 21 U/L 13-56 [facility] Serum or plasma albumin tyrese urement (mass/volume)Ordered By: Saurabh Fernandez on 09-16-2024 Albumin [Mass/Vol] 2.8 g/dL Low 3.2-5.0 [facility] Serum or plasma alkaline elia sphatase measurementOrdered By: Saurabh Fernandez on 09-16-2024 ALP [Catalytic activity/Vol] 69 U/L 45-117 [facility] Serum or plasma calcium tyrese urement (mass/volume)Ordered By: Saurabh Fernandez on 09-16-2024 Calcium [Mass/Vol] 8.7 mg/dL 8.5-10.1 [facility] Serum or plasma cholesterol measurement (mass/volume)Ordered By: Saurabh Fernandez on 09-16-2024 Cholesterol [Mass/Vol] 190 mg/dL <200 [facility] Comment on above: <200 mg/dL Desirable 200-240 mg/dL Borderline >240 mg/dL High Risk Serum or plasma creatinine m easurement (mass/volume)Ordered By: Saurabh Fernandez on 09-16-2024 Creatinine [Mass/Vol] 1.04 mg/dL High 0.55-1.02 [facility] Comment on above: The validity of the calculated GFR & GFRAA in patients over 70 years has not been determined. Clinical correlation is essential. Serum or plasma urea nitroge n measurement (mass/volume)Ordered By: Saurabh Fernandez on 09-16-2024 Urea nitrogen [Mass/Vol] 32 mg/dL High 7-18 [facility] Sodium levelOrdered By: Saurabh Fernandez on 09-16-2024 Sodium [Moles/Vol] 142 mmol/L 136-145 [facility] TSH QnOrdered By: Saurabh handy on 09-16-2024 Thyroid Stimulating Hormone (TSH) 2.080 uIU/mL 0.358-3.740 [facility] Thyroid Stim Hormone (TSH)on 09-16-2024 TSH 2.080 uIU/mL Normal 0.358-3.740 [facility] Comment on above: Order Comment: 105-1 Performed By: #### L 100.0100, L500.4050, L500.4100, L501.9520 #### [facility] [address] [place], [address] Total proteinOrdered By: Ambreen Fernandez on 09-16-2024 Protein [Mass/Vol] 6.8 g/dL 6.4-8.2 [facility] Triglycerides measurementOrd ered By: Saurabh Fernandez on 09-16-2024 Triglyceride [Mass/Vol] 125 mg/dL <199 [facility] Comment on above: The drugs N-Acetylcy steine and Metamizole may falsely depress this assay.Serum Triglycerides Reference Interval Normal <150 mg/dL Borderline high 150 - 199 mg/dL High 200 - 499 mg/dL Very High > or = 500 mg/dL Very low density lipoprotein (VLDL) cholesterol measurementOrdered By: Saurabh Fernandez on 09-16-2024 VLDL Cholesterol 25 mg/dL 5-40 [facility] White blood cell (WBC) count Ordered By: Saurabh Fernandez on 09-16-2024 WBC (Bld) [#/Vol] 7.8 10*3/uL 4.4-11.0 [facility] 88-IO-Rfhmbye DOrdered By: Migue Fernandez on 08-30-2024 Vitamin D 25-Hydroxy 69.9 ng/mL [facility] Comment on above: Vitamin D 25(OH) Sta tus Range Deficiency <20 ng/mL (50nmol/L) Insufficiency 20 - 30 ng/mL (50 - 75 nmol/L) Sufficiency 30 - 100 ng/mL (75 - 250 nmol/L) Toxicity >100 ng/mL (>250 nmol/L) Valproate levelOrdered By: Migue Villatoroo on 08-30-2024 Valproic Acid (Depakene) Level 26 ug/mL Low 50-100 [facility] Valproic Acid (Depakene) Lev ladonna 08-30-2024 VALPROIC ACID 26 ug/mL Low 50-100 [facility] Comment on above: Order Comment: 105-1 Performed By: #### L 100.0100, L500.4050, L500.4100, L501.9520 #### [facility] [address] [place], [address] Vitamin D,25 Hydroxyon 08-30 Vitamin D 25-OH 69.9 ng/mL Normal [facility] Comment on above: Order Comment: 105- Result Comment: Kerline min D 25(OH) Status Range Deficiency <20 ng/mL (50nmol/L) Insufficiency 20 - 30 ng/mL (50 - 75 nmol/L) Sufficiency 30 - 100 ng/mL (75 - 250 nmol/L) Toxicity >100 ng/mL (>250 nmol/L) Performed By: #### L 100.0100, L500.4050, L500.4100, L501.9520 #### [facility] [address] [place], [address] Thyroid Stim Hormone (TSH)on 08-09-2024 TSH 1.590 uIU/mL Normal 0.358-3.740 [facility] Comment on above: Order Comment: 105.1 Performed By: #### L 501.9520 #### [facility] [address] [place], [address] CBC W/Diff, Automatedon 10-0 Absolute Lymph 3.04 X10 3/uL Normal 0.83-4.51 [facility] Comment on above: Order Comment: 105-1 Performed By: #### L 100.0100, L500.4050, L500.4100, L501.9520 #### [facility] [address] [place], [address] Absolute Neut 3.0 X10 3/uL Normal 2.0-7.7 [facility] Comment on above: Order Comment: 105-1 Performed By: #### L 100.0100, L500.4050, L500.4100, L501.9520 #### [facility] [address] [place], [address] Basophils/100 WBC (Bld) 0.6 % Normal 0-1 [facility] Comment on above: Order Comment: 105-1 Performed By: #### L 100.0100, L500.4050, L500.4100, L501.9520 #### [facility] [address] [place], [address] Eosinophils/100 WBC (Bld) 4.4 % Normal 0-5 [facility] Comment on above: Order Comment: 105-1 Performed By: #### L 100.0100, L500.4050, L500.4100, L501.9520 #### [facility] [address] [place], [address] Erythrocyte distribution width (RBC) [Ratio] 13.1 % Normal 11.6-14.6 [facility] Comment on above: Order Comment: 105-1 Performed By: #### L 100.0100, L500.4050, L500.4100, L501.9520 #### [facility] [address] [place], [address] Hematocrit (Bld) [Volume fraction] 44.5 % Normal 37-47 [facility] Comment on above: Order Comment: 105-1 Performed By: #### L 100.0100, L500.4050, L500.4100, L501.9520 #### [facility] [address] [place], [address] Hemoglobin (Bld) [Mass/Vol] 14.0 g/dL Normal 12.0-15.0 [facility] Comment on above: Order Comment: 105-1 Performed By: #### L 100.0100, L500.4050, L500.4100, L501.9520 #### [facility] [address] [place], [address] IG% 0.300 Normal 0.0-0.9 [facility] Comment on above: Order Comment: 105-1 Result Comment: IG% - Immature Granulocytes (promyelocytes, myelocytes and metamyelocytes) > 1% indicates that a LEFT SHIFT is Present. Performed By: #### L 100.0100, L500.4050, L500.4100, L501.9520 #### [facility] [address] [place], [address] Lymphocytes/100 WBC (Bld) 43.3 % High 19-41 [facility] Comment on above: Order Comment: 105-1 Performed By: #### L 100.0100, L500.4050, L500.4100, L501.9520 #### [facility] [address] [place], [address] MCH (RBC) [Entitic mass] 31.5 pg Normal 27.0-32.0 [facility] Comment on above: Order Comment: 105-1 Performed By: #### L 100.0100, L500.4050, L500.4100, L501.9520 #### [facility] [address] [place], [address] MCHC (RBC) [Mass/Vol] 31.5 g/dL Low 32-36 [facility] Comment on above: Order Comment: 105-1 Performed By: #### L 100.0100, L500.4050, L500.4100, L501.9520 #### [facility] [address] [place], [address] MCV (RBC) [Entitic vol] 100.0 fL High 81-99 [facility] Comment on above: Order Comment: 105-1 Performed By: #### L 100.0100, L500.4050, L500.4100, L501.9520 #### [facility] [address] [place], [address] Monocytes/100 WBC (Bld) 8.3 % Normal 0-10 [facility] Comment on above: Order Comment: 105-1 Performed By: #### L 100.0100, L500.4050, L500.4100, L501.9520 #### [facility] [address] [place], [address] Neutrophils/100 WBC (Bld) 43.1 % Low 47-70 [facility] Comment on above: Order Comment: 105-1 Performed By: #### L 100.0100, L500.4050, L500.4100, L501.9520 #### [facility] [address] [place], [address] Nucleated RBC (Bld) [#/Vol] 0 10*3/uL Normal 0-5 [facility] Comment on above: Order Comment: 105-1 Performed By: #### L 100.0100, L500.4050, L500.4100, L501.9520 #### [facility] [address] [place], [address] Platelet mean volume (Bld) [Entitic vol] 11.5 fL Normal 6.2-12.0 [facility] Comment on above: Order Comment: 105-1 Performed By: #### L 100.0100, L500.4050, L500.4100, L501.9520 #### [facility] [address] [place], [address] Platelets (Bld) [#/Vol] 203 10*3/uL Normal 150-450 [facility] Comment on above: Order Comment: 105-1 Performed By: #### L 100.0100, L500.4050, L500.4100, L501.9520 #### [facility] [address] [place], [address] RBC (Bld) [#/Vol] 4.45 10*6/uL Normal 4.2-5.4 [facility] Comment on above: Order Comment: 105-1 Performed By: #### L 100.0100, L500.4050, L500.4100, [id number] #### [facility] [address] [place], [address] RDW SD 48.5 fl High 35.1-43.9 [facility] Comment on above: Order Comment: 105-1 Performed By: #### L 100.0100, L500.4050, L500.4100, [id number] #### [facility] [address] [place], [address] WBC (Bld) [#/Vol] 7.0 10*3/uL Normal 4.4-11.0 [facility] Comment on above: Order Comment: 105-1 Performed By: #### L 100.0100, L500.4050, L500.4100, [id number] #### [facility] [address] [place], [address] Comprehensive Metabolic Prof ilon 06-25-2024 Albumin [Mass/Vol] 2.7 g/dL Low 3.2-5.0 [facility] Comment on above: Order Comment: 105-1 Performed By: #### L 100.0100, L500.4050, L500.4100, [id number] #### [facility] [address] [place], [address] Albumin/Globulin [Mass ratio] 0.7 {ratio} Low 0.9-2.4 [facility] Comment on above: Order Comment: 105-1 Performed By: #### L 100.0100, L500.4050, L500.4100, [id number] #### [facility] [address] [place], [address] ALK P 73 U/L Normal 45-117 [facility] Comment on above: Order Comment: 105-1 Performed By: #### L 100.0100, L500.4050, L500.4100, L501.9520 #### [facility] [address] [place], [address] ALT [Catalytic activity/Vol] 17 U/L Normal 13-56 [facility] Comment on above: Order Comment: 105-1 Performed By: #### L 100.0100, L500.4050, L500.4100, L501.9520 #### [facility] [address] [place], [address] AST [Catalytic activity/Vol] 17 U/L Normal 15-37 [facility] Comment on above: Order Comment: 105-1 Performed By: #### L 100.0100, L500.4050, L500.4100, [id number] #### [facility] [address] [place], [address] Bilirubin [Mass/Vol] 0.80 mg/dL Normal 0.20-1.00 [facility] Comment on above: Order Comment: 105-1 Result Comment: For patients on eltrombopag therapy, use of Dimension Simpson TBIL is not recommended. Performed By: #### L 100.0100, L500.4050, L500.4100, L501.9520 #### [facility] [address] [place], [address] BUN/CRE 21.4 RATIO High 10-20 [facility] Comment on above: Order Comment: 105-1 Performed By: #### L 100.0100, L500.4050, L500.4100, [id number] #### [facility] [address] [place], [address] CA,Total 8.8 mg/dL Normal 8.5-10.1 [facility] Comment on above: Order Comment: 105-1 Performed By: #### L 100.0100, L500.4050, L500.4100, [id number] #### [facility] [address] [place], [address] Chloride [Moles/Vol] 109 mmol/L High 98-107 [facility] Comment on above: Order Comment: 105-1 Performed By: #### L 100.0100, L500.4050, L500.4100, L501.9520 #### [facility] [address] [place], [address] CO2 [Moles/Vol] 30.0 mmol/L Normal 21.0-32.0 [facility] Comment on above: Order Comment: 105-1 Performed By: #### L 100.0100, L500.4050, L500.4100, L501.9520 #### [facility] [address] [place], [address] Creatinine [Mass/Vol] 0.75 mg/dL Normal 0.55-1.02 [facility] Comment on above: Order Comment: 105-1 Result Comment: The validity of the calculated GFR GFRAA in patients over 70 years has not been determined. Clinical correlation is essential. Performed By: #### L 100.0100, L500.4050, L500.4100, L501.9520 #### [facility] [address] [place], [address] EST GFR - AA 96 mL/min Normal >60 [facility] Comment on above: Order Comment: 105-1 Result Comment: Afri can Bel[place]ian GFR Calc Performed By: #### L 100.0100, L500.4050, L500.4100, [id number] #### [facility] [address] [place], [address] GAP 4 Low 5-15 [facility] Comment on above: Order Comment: 105-1 Performed By: #### L 100.0100, L500.4050, L500.4100, L501.9520 #### [facility] [address] [place], [address] GFR/1.73 sq M.predicted among non-blacks MDRD (S/P/Bld) [Vol rate/Area] 79 mL/min/{1.73_m2} Normal >60 [facility] Comment on above: Order Comment: 105-1 Result Comment: Non- GFR Calc Performed By: #### L 100.0100, L500.4050, L500.4100, L501.9520 #### [facility] [address] [place], [address] Globulin (S) [Mass/Vol] 3.7 g/dL Normal 2.2-4.2 [facility] Comment on above: Order Comment: 105-1 Performed By: #### L 100.0100, L500.4050, L500.4100, [id number] #### [facility] [address] [place], [address] Glucose [Mass/Vol] 82 mg/dL Normal 74-106 [facility] Comment on above: Order Comment: 105-1 Performed By: #### L 100.0100, L500.4050, L500.4100, [id number] #### [facility] [address] [place], [address] Potassium [Moles/Vol] 4.0 mmol/L Normal 3.5-5.1 [facility] Comment on above: Order Comment: 105-1 Performed By: #### L 100.0100, L500.4050, L500.4100, [id number] #### [facility] [address] [place], [address] Sodium [Moles/Vol] 143 mmol/L Normal 136-145 [facility] Comment on above: Order Comment: 105-1 Performed By: #### L 100.0100, L500.4050, L500.4100, [id number] #### [facility] [address] [place], [address] T PROT 6.4 g/dL Normal 6.4-8.2 [facility] Comment on above: Order Comment: 105-1 Performed By: #### L 100.0100, L500.4050, L500.4100, [id number] #### [facility] [address] [place], [address] Urea nitrogen [Mass/Vol] 16 mg/dL Normal 7-18 [facility] Comment on above: Order Comment: 105-1 Performed By: #### L 100.0100, L500.4050, L500.4100, [id number] #### [facility] [address] [place], [address] Lipid Profileon 06-25-2024 Cholesterol [Mass/Vol] 192 mg/dL Normal 200 [facility] Comment on above: Order Comment: 105- Result Comment: <200 mg/dL Desirable 200-240 mg/dL Borderline >240 mg/dL High Risk Performed By: #### L 100.0100, L500.4050, L500.4100, [id number] #### [facility] [address] [place], [address] Cholesterol in HDL [Mass/Vol] 47 mg/dL Normal [facility] Comment on above: Order Comment: 105-1 Result Comment: The drugs N-Acetylcysteine and Metamizole may falsely depress this assay. Reference Range HDL <40 mg/dL Low HDL Cholesterol HDL >or= 60 mg/dL High HDL Cholesterol Performed By: #### L 100.0100, L500.4050, L500.4100, [id number] #### [facility] [address] [place], [address] Cholesterol in LDL [Mass/Vol] 107 mg/dL Normal 0-130 [facility] Comment on above: Order Comment: 105-1 Performed By: #### L 100.0100, L500.4050, L500.4100, [id number] #### [facility] [address] [place], [address] Cholesterol in VLDL [Mass/Vol] 38 mg/dL Normal 5-40 [facility] Comment on above: Order Comment: 105-1 Performed By: #### L 100.0100, L500.4050, L500.4100, L501.9520 #### [facility] [address] [place], [address] Triglyceride [Mass/Vol] 188 mg/dL Normal [facility] Comment on above: Order Comment: 105-1 Result Comment: The drugs N-Acetylcysteine and Metamizole may falsely depress this assay. Serum Triglycerides Reference Interval Normal <150 mg/dL Borderline high 150 - 199 mg/dL High 200 - 499 mg/dL Very High > or = 500 mg/dL Performed By: #### L 100.0100, L500.4050, L500.4100, L501.9520 #### [facility] [address] [place], [address] Thyroid Stim Hormone (TSH)on 06-25-2024 TSH 4.290 uIU/mL High 0.358-3.740 [facility] Comment on above: Order Comment: 105-1 Performed By: #### L 100.0100, L500.4050, L500.4100, [id number] #### [facility] [address] [place], [address] CBC W/Diff, Automatedon 10-0 Absolute Neut Normal 2.0-7.7 [facility] Comment on above: Order Comment: 105.1 Result Comment: This specimen has been REJECTED due to Laboratory criteria: Quanity Not Sufficient. MYEAGER has been notified of need of recollection. 06/24/24899 Selam Esposito Performed By: #### L 500.4050, L500.4100, L100.0100 #### [facility] [address] [place], [address] HCT Normal 37-47 [facility] Comment on above: Order Comment: 105.1 Result Comment: This specimen has been REJECTED due to Laboratory criteria: Quanity Not Sufficient. MYEAGER has been notified of need of recollection. 06/24/24899 Selam Esposito Performed By: #### L 500.4050, L500.4100, L100.0100 #### [facility] [address] [place], [address] HGB Normal 12.0-15.0 [facility] Comment on above: Order Comment: 105.1 Result Comment: This specimen has been REJECTED due to Laboratory criteria: Quanity Not Sufficient. MYEAGER has been notified of need of recollection. 06/24/24899 Selam Esposito Performed By: #### L 500.4050, L500.4100, L100.0100 #### [facility] [address] [place], [address] MCH Normal 27.0-32.0 [facility] Comment on above: Order Comment: 105.1 Result Comment: This specimen has been REJECTED due to Laboratory criteria: Quanity Not Sufficient. MYEAGER has been notified of need of recollection. 06/24/24899 Selam Esposito Performed By: #### L 500.4050, L500.4100, L100.0100 #### [facility] [address] [place], [address] MCHC Normal 32-36 [facility] Comment on above: Order Comment: 105.1 Result Comment: This specimen has been REJECTED due to Laboratory criteria: Quanity Not Sufficient. MYEAGER has been notified of need of recollection. 06/24/24899 Selam Esposito Performed By: #### L 500.4050, L500.4100, L100.0100 #### [facility] [address] [place], [address] MCV Normal 81-99 [facility] Comment on above: Order Comment: 105.1 Result Comment: This specimen has been REJECTED due to Laboratory criteria: Quanity Not Sufficient. MYEAGER has been notified of need of recollection. 06/24/24899 Selam Esposito Performed By: #### L 500.4050, L500.4100, L100.0100 #### [facility] [address] [place], [address] NEUT% Normal 47-70 [facility] Comment on above: Order Comment: 105.1 Result Comment: This specimen has been REJECTED due to Laboratory criteria: Quanity Not Sufficient. MYEAGER has been notified of need of recollection. 06/24/24899 Selam Esposito Performed By: #### L 500.4050, L500.4100, L100.0100 #### [facility] [address] [place], [address] PLT Normal 150-450 [facility] Comment on above: Order Comment: 105.1 Result Comment: This specimen has been REJECTED due to Laboratory criteria: Quanity Not Sufficient. MYEAGER has been notified of need of recollection. 06/24/24899 Selam Esposito Performed By: #### L 500.4050, L500.4100, L100.0100 #### [facility] [address] [place], [address] RBC Normal 4.2-5.4 [facility] Comment on above: Order Comment: 105.1 Result Comment: This specimen has been REJECTED due to Laboratory criteria: Quanity Not Sufficient. MYEAGER has been notified of need of recollection. 06/24/24899 Selam Esposito Performed By: #### L 500.4050, L500.4100, L100.0100 #### [facility] [address] [place], [address] RDW CV Normal 11.6-14.6 [facility] Comment on above: Order Comment: 105.1 Result Comment: This specimen has been REJECTED due to Laboratory criteria: Quanity Not Sufficient. MYEAGER has been notified of need of recollection. 06/24/24 0900 Selam Esposito Performed By: #### L 500.4050, L500.4100, L100.0100 #### [facility] [address] [place], [address] RDW SD Normal 35.1-43.9 [facility] Comment on above: Order Comment: 105.1 Result Comment: This specimen has been REJECTED due to Laboratory criteria: Quanity Not Sufficient. MYEAGER has been notified of need of recollection. 06/24/24 0900 Selam Esposito Performed By: #### L 500.4050, L500.4100, L100.0100 #### [facility] [address] [place], [address] WBC Normal 4.4-11.0 [facility] Comment on above: Order Comment: 105.1 Result Comment: This specimen has been REJECTED due to Laboratory criteria: Quanity Not Sufficient. MYEAGER has been notified of need of recollection. 06/24/24 09 Selam Esposito Performed By: #### L 500.4050, L500.4100, L100.0100 #### [facility] [address] [place], [address] Comprehensive Metabolic Prof ilon 06-24-2024 ALB Normal 3.2-5.0 [facility] Comment on above: Order Comment: 105.1 Result Comment: COUL D NOT OBTAIN ENOUGH BLOOD Performed By: #### L 500.4050, L500.4100, L100.0100 #### [facility] [address] [place], [address] ALK P Normal 45-117 [facility] Comment on above: Order Comment: 105.1 Result Comment: COUL D NOT OBTAIN ENOUGH BLOOD Performed By: #### L 500.4050, L500.4100, L100.0100 #### [facility] [address] [place], [address] ALT Normal 13-56 [facility] Comment on above: Order Comment: 105.1 Result Comment: COUL D NOT OBTAIN ENOUGH BLOOD Performed By: #### L 500.4050, L500.4100, L100.0100 #### [facility] [address] [place], [address] AST Normal 15-37 [facility] Comment on above: Order Comment: 105.1 Result Comment: COUL D NOT OBTAIN ENOUGH BLOOD Performed By: #### L 500.4050, L500.4100, L100.0100 #### [facility] [address] [place], [address] BUN Normal 7-18 [facility] Comment on above: Order Comment: 105.1 Result Comment: COUL D NOT OBTAIN ENOUGH BLOOD Performed By: #### L 500.4050, L500.4100, L100.0100 #### [facility] [address] [place], [address] BUN/CRE Normal 10-20 [facility] Comment on above: Order Comment: 105.1 Result Comment: COUL D NOT OBTAIN ENOUGH BLOOD Performed By: #### L 500.4050, L500.4100, L100.0100 #### [facility] [address] [place], [address] CA,Total Normal 8.5-10.1 [facility] Comment on above: Order Comment: 105.1 Result Comment: COUL D NOT OBTAIN ENOUGH BLOOD Performed By: #### L 500.4050, L500.4100, L100.0100 #### [facility] [address] [place], [address] CL Normal 98-107 [facility] Comment on above: Order Comment: 105.1 Result Comment: COUL D NOT OBTAIN ENOUGH BLOOD Performed By: #### L 500.4050, L500.4100, L100.0100 #### [facility] [address] [place], [address] CO2 Normal 21.0-32.0 [facility] Comment on above: Order Comment: 105.1 Result Comment: COUL D NOT OBTAIN ENOUGH BLOOD Performed By: #### L 500.4050, L500.4100, L100.0100 #### [facility] [address] [place], [address] CREAT,SERUM Normal 0.55-1.02 [facility] Comment on above: Order Comment: 105.1 Result Comment: COUL D NOT OBTAIN ENOUGH BLOOD Performed By: #### L 500.4050, L500.4100, L100.0100 #### [facility] [address] [place], [address] EST GFR Normal >60 [facility] Comment on above: Order Comment: 105.1 Result Comment: COUL D NOT OBTAIN ENOUGH BLOOD Performed By: #### L 500.4050, L500.4100, L100.0100 #### [facility] [address] [place], [address] EST GFR - AA Normal >60 [facility] Comment on above: Order Comment: 105.1 Result Comment: COUL D NOT OBTAIN ENOUGH BLOOD Performed By: #### L 500.4050, L500.4100, L100.0100 #### [facility] [address] [place], [address] GAP Normal 5-15 [facility] Comment on above: Order Comment: 105.1 Result Comment: COUL D NOT OBTAIN ENOUGH BLOOD Performed By: #### L 500.4050, L500.4100, L100.0100 #### [facility] [address] [place], [address] GLU Normal 74-106 [facility] Comment on above: Order Comment: 105.1 Result Comment: COUL D NOT OBTAIN ENOUGH BLOOD Performed By: #### L 500.4050, L500.4100, L100.0100 #### [facility] [address] [place], [address] Potassium Normal 3.5-5.1 [facility] Comment on above: Order Comment: 105.1 Result Comment: COUL D NOT OBTAIN ENOUGH BLOOD Performed By: #### L 500.4050, L500.4100, L100.0100 #### [facility] [address] [place], [address] T BILI Normal 0.20-1.00 [facility] Comment on above: Order Comment: 105.1 Result Comment: COUL D NOT OBTAIN ENOUGH BLOOD Performed By: #### L 500.4050, L500.4100, L100.0100 #### [facility] [address] [place], [address] T PROT Normal 6.4-8.2 [facility] Comment on above: Order Comment: 105.1 Result Comment: COUL D NOT OBTAIN ENOUGH BLOOD Performed By: #### L 500.4050, L500.4100, L100.0100 #### [facility] [address] [place], [address] Comprehensive Metabolic Profil Normal 136-145 [facility] Comment on above: Order Comment: 105.1 Result Comment: COUL D NOT OBTAIN ENOUGH BLOOD Performed By: #### L 500.4050, L500.4100, L100.0100 #### [facility] [address] [place], [address] Lipid Profileon 06-24-2024 CHOL Normal 200 [facility] Comment on above: Order Comment: 105.1 Result Comment: COUL D NOT OBTAIN ENOUGH BLOOD Performed By: #### L 500.4050, L500.4100, L100.0100 #### [facility] [address] [place], [address] HDL Normal [facility] Comment on above: Order Comment: 105.1 Result Comment: COUL D NOT OBTAIN ENOUGH BLOOD Performed By: #### L 500.4050, L500.4100, L100.0100 #### [facility] [address] [place], [address] LDL Normal 0-130 [facility] Comment on above: Order Comment: 105.1 Result Comment: COUL D NOT OBTAIN ENOUGH BLOOD Performed By: #### L 500.4050, L500.4100, L100.0100 #### [facility] [address] [place], [address] TRIG Normal [facility] Comment on above: Order Comment: 105.1 Result Comment: COUL D NOT OBTAIN ENOUGH BLOOD Performed By: #### L 500.4050, L500.4100, L100.0100 #### [facility] [address] [place], [address] VLDL Normal 5-40 [facility] Comment on above: Order Comment: 105.1 Result Comment: COUL D NOT OBTAIN ENOUGH BLOOD Performed By: #### L 500.4050, L500.4100, L100.0100 #### [facility] [address] [place], [address] Absolute lymphocyte countOrd ered By: Saurabh Fernandez on 10-16-2023 Lymphocytes Auto (Unsp spec) [#/Vol] 2.40 10*3/uL 0.83-4.51 [facility] Automated lymphocyte count a s percentage of total leukocytesOrdered By: Saurabh Fernandez on 10-16-2023 Lymphocytes/100 WBC Auto (Unsp spec) 22.2 % 19-41 [facility] Basophil percentageOrdered B y: Saurabh Fernandez on 10-16-2023 Basophils/100 WBC (Bld) 0.6 % 0-1 [facility] Bilirubin [Mass/Vol] 0.50 mg/dL 0.20-1.00 [facility] Comment on above: For patients on eltr ombopag therapy, use of Dimension Simpson TBIL is not recommended. Chloride [Moles/Vol] 109 mmol/L 98-107 [facility] Cholesterol [Mass/Vol] 204 mg/dL <200 [facility] Comment on above: <200 mg/dL Desirable 200-240 mg/dL Borderline >240 mg/dL High Risk Eosinophils/100 WBC (Bld) 2.9 % 0-5 [facility] Glucose [Mass/Vol] 84 mg/dL 74-106 [facility] Hemoglobin (Bld) [Mass/Vol] 15.1 g/dL 12.0-15.0 [facility] Monocytes/100 WBC (Bld) 7.4 % 0-10 [facility] Neutrophils (Bld) [#/Vol] 7.2 10*3/uL 2.0-7.7 [facility] Neutrophils/100 WBC (Bld) 66.6 % 47-70 [facility] Potassium [Moles/Vol] 3.9 mmol/L 3.5-5.1 [facility] Protein [Mass/Vol] 6.4 g/dL 6.4-8.2 [facility] Sodium [Moles/Vol] 140 mmol/L 136-145 [facility] Triglyceride [Mass/Vol] 144 mg/dL <199 [facility] Comment on above: The drugs N-Acetylcy steine and Metamizole may falsely depress this assay.Serum Triglycerides Reference Interval Normal <150 mg/dL Borderline high 150 - 199 mg/dL High 200 - 499 mg/dL Very High > or = 500 mg/dL WBC (Bld) [#/Vol] 10.8 10*3/uL 4.4-11.0 [facility] Determination of erythrocyte mean corpuscular volume (MCV)Ordered By: Saurabh Fernandez on 10-16-2023 MCV (RBC) [Entitic vol] 99.6 fL 81-99 [facility] Erythrocyte distribution wid th ratioOrdered By: Saurabh Fernandez on 10-16-2023 Erythrocyte distribution width (RBC) [Ratio] 13.4 % 11.6-14.6 [facility] Erythrocyte distribution wid th standard deviationOrdered By: Saurabh Fernandez on 10-16-2023 Erythrocyte distribution width (RBC) [Entitic vol] 49.4 fL 35.1-43.9 [facility] Hematocrit Auto (Bld) [Volum e fraction]Ordered By: Saurabh Fernandez on 10-16-2023 Hematocrit (Bld) [Volume fraction] 47.5 % 37-47 [facility] Immature granulocytes/100 WB C Auto (Bld)Ordered By: Saurabh Fernandez on 10-16-2023 Immature granulocytes/100 WBC (Bld) 0.300 % 0.0-0.9 [facility] Comment on above: IG% - Immature Granu locytes (promyelocytes, myelocytes and metamyelocytes) > 1% indicates that a LEFT SHIFT is Present. Laboratory - Chemistry and C hemistry - challengeOrdered By: Saurabh Fernandez on 10-16-2023 Albumin/Globulin [Mass ratio] 0.7 {ratio} 0.9-2.4 [facility] ALP [Catalytic activity/Vol] 67 U/L 45-117 [facility] ALT [Catalytic activity/Vol] 20 U/L 13-56 [facility] Cholesterol in HDL (Body fld) [Mass/Vol] 48 mg/dL >40 [facility] Comment on above: The drugs N-Acetylcy steine and Metamizole may falsely depress this assay. Reference Range HDL <40 mg/dL Low HDL Cholesterol HDL >or= 60 mg/dL High HDL Cholesterol Cholesterol in LDL (Body fld) [Moles/Vol] 127 mg/dL 0-130 [facility] Cholesterol in VLDL Calc [Moles/Vol] 29 mg/dL 5-40 [facility] CO2 [Moles/Vol] 29.0 mmol/L 21.0-32.0 [facility] Globulin (S) [Mass/Vol] 3.7 g/dL 2.2-4.2 [facility] Urea nitrogen/Creatinine [Mass ratio] 27.9 mg/mg 10-20 [facility] - Hematology and Cell countsOrdered By: Saurabh Fernandez on 10-16-2023 MCH (RBC) [Entitic mass] 31.7 pg 27.0-32.0 [facility] MCHC (RBC) [Mass/Vol] 31.8 g/dL 32-36 [facility] Nucleated RBC/100 WBC (Bld) [Ratio] 0 % 0-5 [facility] Platelets (Bld) [#/Vol] 185 10*3/uL 150-450 [facility] No Panel InformationOrdered By: Saurabh Fernandez on 10-16-2023 Estimated GFR (MDRD) Amer 86 mL/min >60 [facility] Comment on above: GFR Calc Estimated GFR (MDRD) Non-Af Amer 71 mL/min >60 [facility] Comment on above: Non- GFR Calc Platelet mean volume Lior-Ec ker (Bld) [Entitic vol]Ordered By: Saurabh Fernandez on 10-16-2023 Platelet mean volume (Bld) [Entitic vol] 11.8 fL 6.2-12.0 [facility] RBC Auto (Bld) [#/Vol]Ordere d By: Saurabh Fernandez on 10-16-2023 RBC (Bld) [#/Vol] 4.77 10*6/uL 4.2-5.4 [facility] Serum or plasma calcium tyrese urement (mass/volume)Ordered By: Saurabh Fernandez on 10-16-2023 Calcium [Mass/Vol] 8.9 mg/dL 8.5-10.1 [facility] Serum or plasma creatinine m easurement (mass/volume)Ordered By: Saurabh Fernandez on 10-16-2023 Creatinine [Mass/Vol] 0.82 mg/dL 0.55-1.02 [facility] Comment on above: The validity of the calculated GFR & GFRAA in patients over 70 years has not been determined. Clinical correlation is essential. Serum or plasma thyroid stim ulating hormone (TSH) measurement (units/volume)Ordered By: Saurabh Fernandez on 10-16-2023 TSH Qn 2.62 uIU/mL 0.358-3.74 [facility] Serum or plasma urea nitroge n measurement (mass/volume)Ordered By: Saurabh Fernandez on 10-16-2023 Urea nitrogen [Mass/Vol] 23 mg/dL 7-18 [facility] Thin prep Papanicolaou smear with manual screeningOrdered By: Saurabh Fernandez on 10-16-2023 Thin prep Papanicolaou smear with manual screening 2.7 g/dL 3.2-5.0 [facility] Thin prep Papanicolaou smear with manual screening 15 U/L 15-37 [facility] Thin prep Papanicolaou smear with manual screening 2 5-15 [facility] No Panel InformationOrdered By: Saurabh Fernandez on 09-29-2023 Valproic Acid (Depakene) Level 27 ug/mL 50-100 [facility] Vitamin D 25-Hydroxy 86.5 ng/mL [facility] Comment on above: Vitamin D 25(OH) Sta tus Range Deficiency <20 ng/mL (50nmol/L) Insufficiency 20 - 30 ng/mL (50 - 75 nmol/L) Sufficiency 30 - 100 ng/mL (75 - 250 nmol/L) Toxicity >100 ng/mL (>250 nmol/L) Absolute lymphocyte countOrd ered By: Saurabh Fernandez on 09-01-2023 Lymphocytes Auto (Unsp spec) [#/Vol] 4.12 10*3/uL 0.83-4.51 [facility] Basophil percentageOrdered B y: Saurabh Fernandez on 09-01-2023 Basophils/100 WBC (Bld) 0.8 % 0-1 [facility] Bilirubin [Mass/Vol] 0.80 mg/dL 0.20-1.00 [facility] Comment on above: For patients on eltr ombopag therapy, use of Dimension Simpson TBIL is not recommended. Chloride [Moles/Vol] 110 mmol/L 98-107 [facility] Eosinophils/100 WBC (Bld) 4.8 % 0-5 [facility] Glucose [Mass/Vol] 79 mg/dL 74-106 [facility] Neutrophils (Bld) [#/Vol] 4.2 10*3/uL 2.0-7.7 [facility] Neutrophils/100 WBC (Bld) 43.6 % 47-70 [facility] Potassium [Moles/Vol] 4.1 mmol/L 3.5-5.1 [facility] Comment on above: Moderate Hemolysis, Result may be falsely increased. Protein [Mass/Vol] 6.7 g/dL 6.4-8.2 [facility] Sodium [Moles/Vol] 142 mmol/L 136-145 [facility] WBC (Bld) [#/Vol] 9.7 10*3/uL 4.4-11.0 [facility] Blood erythrocytes count (nu mber/volume)Ordered By: Saurabh Fernandez on 09-01-2023 RBC (Bld) [#/Vol] 5.00 10*6/uL 4.2-5.4 [facility] Blood hemoglobin measurement (mass/volume)Ordered By: Saurabh Fernandez on 09-01-2023 Hemoglobin (Bld) [Mass/Vol] 16.0 g/dL 12.0-15.0 [facility] Blood lymphocytes/100 leukoc ytesOrdered By: Saurabh Fernandez on 09-01-2023 Lymphocytes/100 WBC (Bld) 42.4 % 19-41 [facility] Blood monocytes/100 leukocyt esOrdered By: Saurabh Fernandez on 09-01-2023 Monocytes/100 WBC (Bld) 7.9 % 0-10 [facility] Blood platelet mean volumeOr dered By: Saurabh Fernandez on 09-01-2023 Platelet mean volume (Bld) [Entitic vol] 11.9 fL 6.2-12.0 [facility] Determination of erythrocyte mean corpuscular volume (MCV)Ordered By: Saurabh Fernandez on 09-01-2023 MCV (RBC) [Entitic vol] 100.8 fL 81-99 [facility] Hematocrit Auto (Bld) [Volum e fraction]Ordered By: Saurabh Fernandez on 09-01-2023 Hematocrit (Bld) [Volume fraction] 50.4 % 37-47 [facility] Laboratory - Chemistry and C hemistry - challengeOrdered By: Saurabh Fernandez on 09-01-2023 ALP [Catalytic activity/Vol] 67 U/L 45-117 [facility] ALT [Catalytic activity/Vol] 21 U/L 13-56 [facility] CO2 [Moles/Vol] 26.0 mmol/L 21.0-32.0 [facility] Globulin (S) [Mass/Vol] 4.0 g/dL 2.2-4.2 [facility] Urea nitrogen/Creatinine [Mass ratio] 30.2 mg/mg 10-20 [facility] Laboratory - Hematology and Cell countsOrdered By: Saurabh Fernandez on 09-01-2023 Erythrocyte distribution width (RBC) [Entitic vol] 52.3 fL 35.1-43.9 [facility] Erythrocyte distribution width (RBC) [Ratio] 14.0 % 11.6-14.6 [facility] Immature granulocytes/100 WBC (Bld) 0.500 % 0.0-0.9 [facility] Comment on above: IG% - Immature Granu locytes (promyelocytes, myelocytes and metamyelocytes) > 1% indicates that a LEFT SHIFT is Present. MCH (RBC) [Entitic mass] 32.0 pg 27.0-32.0 [facility] Nucleated RBC/100 WBC (Bld) [Ratio] 0 % 0-5 [facility] MCHC Auto (RBC) [Mass/Vol]Or dered By: Saurabh Fernandez on 09-01-2023 MCHC (RBC) [Mass/Vol] 31.7 g/dL 32-36 [facility] No Panel InformationOrdered By: Saurabh Fernandez on 09-01-2023 Estimated GFR (MDRD) Amer 72 mL/min >60 [facility] Comment on above: GFR Calc Estimated GFR (MDRD) Non-Af Amer 59 mL/min >60 [facility] Comment on above: Non- GFR Calc Platelets bldOrdered By: Ambreen Fernandez on 09-01-2023 Platelets (Bld) [#/Vol] 221 10*3/uL 150-450 [facility] Serum or plasma albumin tyrese urement (mass/volume)Ordered By: Saurabh Fernandez on 09-01-2023 Albumin [Mass/Vol] 2.7 g/dL 3.2-5.0 [facility] Serum or plasma albumin/glob ulin mass ratioOrdered By: Saurabh Fernandez on 09-01-2023 Albumin/Globulin [Mass ratio] 0.7 {ratio} 0.9-2.4 [facility] Serum or plasma calcium tyrese urement (mass/volume)Ordered By: Saurabh Fernandez on 09-01-2023 Calcium [Mass/Vol] 8.3 mg/dL 8.5-10.1 [facility] Serum or plasma creatinine m easurement (mass/volume)Ordered By: Saurabh Fernandez on 09-01-2023 Creatinine [Mass/Vol] 0.96 mg/dL 0.55-1.02 [facility] Comment on above: The validity of the calculated GFR & GFRAA in patients over 70 years has not been determined. Clinical correlation is essential. Serum or plasma urea nitroge n measurement (mass/volume)Ordered By: Saurabh Fernandez on 09-01-2023 Urea nitrogen [Mass/Vol] 29 mg/dL 7-18 [facility] Thin prep Papanicolaou smear with manual screeningOrdered By: Saurabh Fernandez on 09-01-2023 Thin prep Papanicolaou smear with manual screening 24 U/L 15-37 [facility] Comment on above: Moderate Hemolysis, Result may be falsely increased. Thin prep Papanicolaou smear with manual screening 6 5-15 [facility] Absolute lymphocyte countOrd ered By: Saurabh Fernandez on 07-24-2023 Lymphocytes Auto (Unsp spec) [#/Vol] 3.02 10*3/uL 0.83-4.51 [facility] Basophil percentageOrdered B y: Saurabh Fernandez on 07-24-2023 Basophils/100 WBC (Bld) 0.6 % 0-1 [facility] Bilirubin [Mass/Vol] 0.40 mg/dL 0.20-1.00 [facility] Comment on above: For patients on eltr ombopag therapy, use of Dimension Simpson TBIL is not recommended. Chloride [Moles/Vol] 110 mmol/L 98-107 [facility] Cholesterol [Mass/Vol] 189 mg/dL <200 [facility] Comment on above: <200 mg/dL Desirable 200-240 mg/dL Borderline >240 mg/dL High Risk Eosinophils/100 WBC (Bld) 4.2 % 0-5 [facility] Glucose [Mass/Vol] 85 mg/dL 74-106 [facility] Neutrophils (Bld) [#/Vol] 3.1 10*3/uL 2.0-7.7 [facility] Neutrophils/100 WBC (Bld) 43.7 % 47-70 [facility] Potassium [Moles/Vol] 4.2 mmol/L 3.5-5.1 [facility] Protein [Mass/Vol] 6.4 g/dL 6.4-8.2 [facility] Sodium [Moles/Vol] 141 mmol/L 136-145 [facility] Triglyceride [Mass/Vol] 137 mg/dL <199 [facility] Comment on above: The drugs N-Acetylcy steine and Metamizole may falsely depress this assay.Serum Triglycerides Reference Interval Normal <150 mg/dL Borderline high 150 - 199 mg/dL High 200 - 499 mg/dL Very High > or = 500 mg/dL WBC (Bld) [#/Vol] 7.1 10*3/uL 4.4-11.0 [facility] Blood erythrocytes count (nu mber/volume)Ordered By: Saurabh Fernandez on 07-24-2023 RBC (Bld) [#/Vol] 4.72 10*6/uL 4.2-5.4 [facility] Blood hemoglobin measurement (mass/volume)Ordered By: Saurabh Fernandez on 07-24-2023 Hemoglobin (Bld) [Mass/Vol] 14.8 g/dL 12.0-15.0 [facility] Blood lymphocytes/100 leukoc ytesOrdered By: Saurabh Fernandez on 07-24-2023 Lymphocytes/100 WBC (Bld) 42.6 % 19-41 [facility] Blood monocytes/100 leukocyt esOrdered By: Saurabh Fernandez on 07-24-2023 Monocytes/100 WBC (Bld) 8.5 % 0-10 [facility] Blood platelet mean volumeOr dered By: Saurabh Fernandez on 07-24-2023 Platelet mean volume (Bld) [Entitic vol] 12.0 fL 6.2-12.0 [facility] Determination of erythrocyte mean corpuscular volume (MCV)Ordered By: Saurabh Fernandez on 07-24-2023 MCV (RBC) [Entitic vol] 100.2 fL 81-99 [facility] Hematocrit Auto (Bld) [Volum e fraction]Ordered By: Saurabh Fernandez on 07-24-2023 Hematocrit (Bld) [Volume fraction] 47.3 % 37-47 [facility] Laboratory - Chemistry and C hemistry - challengeOrdered By: Saurabh Fernandez on 07-24-2023 ALP [Catalytic activity/Vol] 57 U/L 45-117 [facility] ALT [Catalytic activity/Vol] 18 U/L 13-56 [facility] CO2 [Moles/Vol] 29.0 mmol/L 21.0-32.0 [facility] Globulin (S) [Mass/Vol] 3.9 g/dL 2.2-4.2 [facility] Urea nitrogen/Creatinine [Mass ratio] 32.6 mg/mg 10-20 [facility] Laboratory - Hematology and Cell countsOrdered By: Saurabh Fernandez on 07-24-2023 Erythrocyte distribution width (RBC) [Entitic vol] 50.6 fL 35.1-43.9 [facility] Erythrocyte distribution width (RBC) [Ratio] 13.7 % 11.6-14.6 [facility] Immature granulocytes/100 WBC (Bld) 0.400 % 0.0-0.9 [facility] Comment on above: IG% - Immature Granu locytes (promyelocytes, myelocytes and metamyelocytes) > 1% indicates that a LEFT SHIFT is Present. MCH (RBC) [Entitic mass] 31.4 pg 27.0-32.0 [facility] Nucleated RBC/100 WBC (Bld) [Ratio] 0 % 0-5 [facility] MCHC Auto (RBC) [Mass/Vol]Or dered By: Saurabh Fernandez on 07-24-2023 MCHC (RBC) [Mass/Vol] 31.3 g/dL 32-36 [facility] No Panel InformationOrdered By: Saurabh Fernandez on 07-24-2023 Estimated GFR (MDRD) Amer 82 mL/min >60 [facility] Comment on above: GFR Calc Estimated GFR (MDRD) Non-Af Amer 67 mL/min >60 [facility] Comment on above: Non- GFR Calc Thyroid Stimulating Hormone (TSH) 1.79 uIU/mL 0.358-3.74 [facility] Platelets bldOrdered By: Ambreen Fernandez on 07-24-2023 Platelets (Bld) [#/Vol] 191 10*3/uL 150-450 [facility] Serum or plasma albumin tyrese urement (mass/volume)Ordered By: Saurabh Fernandez on 07-24-2023 Albumin [Mass/Vol] 2.5 g/dL 3.2-5.0 [facility] Serum or plasma albumin/glob ulin mass ratioOrdered By: Saurabh Fernandez on 07-24-2023 Albumin/Globulin [Mass ratio] 0.6 {ratio} 0.9-2.4 [facility] Serum or plasma calcium tyrese urement (mass/volume)Ordered By: Saurabh Fernandez on 07-24-2023 Calcium [Mass/Vol] 8.3 mg/dL 8.5-10.1 [facility] Serum or plasma cholesterol in HDL measurement (mass/volume)Ordered By: Saurabh Fernandez on 07-24-2023 Cholesterol in HDL [Mass/Vol] 45 mg/dL >40 [facility] Comment on above: The drugs N-Acetylcy steine and Metamizole may falsely depress this assay. Reference Range HDL <40 mg/dL Low HDL Cholesterol HDL >or= 60 mg/dL High HDL Cholesterol Serum or plasma cholesterol in VLDL measurement (mass/volume)Ordered By: Saurabh Fernandez on 07-24-2023 Cholesterol in VLDL [Mass/Vol] 27 mg/dL 5-40 [facility] Serum or plasma creatinine m easurement (mass/volume)Ordered By: Saurabh Fernandez on 07-24-2023 Creatinine [Mass/Vol] 0.86 mg/dL 0.55-1.02 [facility] Comment on above: The validity of the calculated GFR & GFRAA in patients over 70 years has not been determined. Clinical correlation is essential. Serum or plasma low density lipoprotein (LDL) cholesterol measurement (mass/volume)Ordered By: Saurabh Fernandez on 07-24-2023 Cholesterol in LDL [Mass/Vol] 117 mg/dL 0-130 [facility] Serum or plasma urea nitroge n measurement (mass/volume)Ordered By: Saurabh Fernandez on 07-24-2023 Urea nitrogen [Mass/Vol] 28 mg/dL 7-18 [facility] Thin prep Papanicolaou smear with manual screeningOrdered By: Saurabh Fernandez on 07-24-2023 Thin prep Papanicolaou smear with manual screening 19 U/L 15-37 [facility] Thin prep Papanicolaou smear with manual screening 2 5-15 [facility] No Panel InformationOrdered By: Saurabh Fernandez on 06-30-2023 Valproic Acid (Depakene) Level 33 ug/mL 50-100 [facility] Absolute lymphocyte countOrd ered By: Saurabh Fernandez on 05-01-2023 Lymphocytes Auto (Unsp spec) [#/Vol] 3.15 10*3/uL 0.83-4.51 [facility] Basophil percentageOrdered B y: Saurabh Fernandez on 05-01-2023 Basophils/100 WBC (Bld) 0.6 % 0-1 [facility] Bilirubin [Mass/Vol] 0.50 mg/dL 0.20-1.00 [facility] Comment on above: For patients on eltr ombopag therapy, use of Dimension Simpson TBIL is not recommended. Chloride [Moles/Vol] 108 mmol/L 98-107 [facility] Cholesterol [Mass/Vol] 205 mg/dL <200 [facility] Comment on above: <200 mg/dL Desirable 200-240 mg/dL Borderline >240 mg/dL High Risk Eosinophils/100 WBC (Bld) 3.6 % 0-5 [facility] Glucose [Mass/Vol] 90 mg/dL 74-106 [facility] Neutrophils (Bld) [#/Vol] 3.1 10*3/uL 2.0-7.7 [facility] Neutrophils/100 WBC (Bld) 42.3 % 47-70 [facility] Potassium [Moles/Vol] 4.5 mmol/L 3.5-5.1 [facility] Protein [Mass/Vol] 7.2 g/dL 6.4-8.2 [facility] Sodium [Moles/Vol] 142 mmol/L 136-145 [facility] Triglyceride [Mass/Vol] 160 mg/dL <199 [facility] Comment on above: The drugs N-Acetylcy steine and Metamizole may falsely depress this assay.Serum Triglycerides Reference Interval Normal <150 mg/dL Borderline high 150 - 199 mg/dL High 200 - 499 mg/dL Very High > or = 500 mg/dL WBC (Bld) [#/Vol] 7.3 10*3/uL 4.4-11.0 [facility] Blood erythrocytes count (nu mber/volume)Ordered By: Saurabh Fernandez on 05-01-2023 RBC (Bld) [#/Vol] 4.82 10*6/uL 4.2-5.4 [facility] Blood hemoglobin measurement (mass/volume)Ordered By: Saurabh Fernandez on 05-01-2023 Hemoglobin (Bld) [Mass/Vol] 15.1 g/dL 12.0-15.0 [facility] Blood lymphocytes/100 leukoc ytesOrdered By: Saurabh Fernandez on 05-01-2023 Lymphocytes/100 WBC (Bld) 43.3 % 19-41 [facility] Blood monocytes/100 leukocyt esOrdered By: Saurabh Fernandez on 05-01-2023 Monocytes/100 WBC (Bld) 9.5 % 0-10 [facility] Blood platelet mean volumeOr dered By: Saurabh Fernandez on 05-01-2023 Platelet mean volume (Bld) [Entitic vol] 12.2 fL 6.2-12.0 [facility] Determination of erythrocyte mean corpuscular volume (MCV)Ordered By: Saurabh Fernandez on 05-01-2023 MCV (RBC) [Entitic vol] 100.2 fL 81-99 [facility] Hematocrit Auto (Bld) [Volum e fraction]Ordered By: Saurabh Fernandez on 05-01-2023 Hematocrit (Bld) [Volume fraction] 48.3 % 37-47 [facility] Laboratory - Chemistry and C hemistry - challengeOrdered By: Saurabh Fernandez on 05-01-2023 ALP [Catalytic activity/Vol] 71 U/L 45-117 [facility] ALT [Catalytic activity/Vol] 27 U/L 13-56 [facility] CO2 [Moles/Vol] 29.0 mmol/L 21.0-32.0 [facility] Globulin (S) [Mass/Vol] 4.3 g/dL 2.2-4.2 [facility] Urea nitrogen/Creatinine [Mass ratio] 29.5 mg/mg 10-20 [facility] Laboratory - Hematology and Cell countsOrdered By: Saurabh Fernandez on 05-01-2023 Erythrocyte distribution width (RBC) [Entitic vol] 50.1 fL 35.1-43.9 [facility] Erythrocyte distribution width (RBC) [Ratio] 13.4 % 11.6-14.6 [facility] Immature granulocytes/100 WBC (Bld) 0.700 % 0.0-0.9 [facility] Comment on above: IG% - Immature Granu locytes (promyelocytes, myelocytes and metamyelocytes) > 1% indicates that a LEFT SHIFT is Present. MCH (RBC) [Entitic mass] 31.3 pg 27.0-32.0 [facility] Nucleated RBC/100 WBC (Bld) [Ratio] 0 % 0-5 [facility] MCHC Auto (RBC) [Mass/Vol]Or dered By: Saurabh Fernandez on 05-01-2023 MCHC (RBC) [Mass/Vol] 31.3 g/dL 32-36 [facility] No Panel InformationOrdered By: Suarabh Fernandez on 05-01-2023 Estimated GFR (MDRD) Amer 60 mL/min >60 [facility] Comment on above: GFR Calc Estimated GFR (MDRD) Non-Af Amer 50 mL/min >60 [facility] Comment on above: Non- GFR Calc Thyroid Stimulating Hormone (TSH) 2.38 uIU/mL 0.358-3.74 [facility] Platelets bldOrdered By: Ambreen Fernandez on 05-01-2023 Platelets (Bld) [#/Vol] 181 10*3/uL 150-450 [facility] Serum or plasma albumin tyrese urement (mass/volume)Ordered By: Saurabh Fernandez on 05-01-2023 Albumin [Mass/Vol] 2.9 g/dL 3.2-5.0 [facility] Serum or plasma albumin/glob ulin mass ratioOrdered By: Saurabh Fernandez on 05-01-2023 Albumin/Globulin [Mass ratio] 0.7 {ratio} 0.9-2.4 [facility] Serum or plasma calcium tyrese urement (mass/volume)Ordered By: Saurabh Fernandez on 05-01-2023 Calcium [Mass/Vol] 9.0 mg/dL 8.5-10.1 [facility] Serum or plasma cholesterol in HDL measurement (mass/volume)Ordered By: Saurabh Fernandez on 05-01-2023 Cholesterol in HDL [Mass/Vol] 53 mg/dL >40 [facility] Comment on above: The drugs N-Acetylcy steine and Metamizole may falsely depress this assay. Reference Range HDL <40 mg/dL Low HDL Cholesterol HDL >or= 60 mg/dL High HDL Cholesterol Serum or plasma cholesterol in VLDL measurement (mass/volume)Ordered By: Saurabh Fernandez on 05-01-2023 Cholesterol in VLDL [Mass/Vol] 32 mg/dL 5-40 [facility] Serum or plasma creatinine m easurement (mass/volume)Ordered By: Saurabh Fernandez on 05-01-2023 Creatinine [Mass/Vol] 1.12 mg/dL 0.55-1.02 [facility] Comment on above: The validity of the calculated GFR & GFRAA in patients over 70 years has not been determined. Clinical correlation is essential. Serum or plasma low density lipoprotein (LDL) cholesterol measurement (mass/volume)Ordered By: Saurabh Fernandez on 05-01-2023 Cholesterol in LDL [Mass/Vol] 120 mg/dL 0-130 [facility] Serum or plasma urea nitroge n measurement (mass/volume)Ordered By: Saurabh Fernandez on 05-01-2023 Urea nitrogen [Mass/Vol] 33 mg/dL 7-18 [facility] Thin prep Papanicolaou smear with manual screeningOrdered By: Saurabh Fernandez on 05-01-2023 Thin prep Papanicolaou smear with manual screening 21 U/L 15-37 [facility] Thin prep Papanicolaou smear with manual screening 5 5-15 [facility] No Panel InformationOrdered By: Saurabh Fernandez on 04-07-2023 Valproic Acid (Depakene) Level 29 ug/mL 50-100 [facility] Absolute lymphocyte countOrd ered By: Saurabh Fernandez on 02-06-2023 Lymphocytes Auto (Unsp spec) [#/Vol] 2.99 10*3/uL 0.83-4.51 [facility] Basophil percentageOrdered B y: Saurabh Fernandez on 02-06-2023 Basophils/100 WBC (Bld) 0.3 % 0-1 [facility] Bilirubin [Mass/Vol] 0.40 mg/dL 0.20-1.00 [facility] Comment on above: For patients on eltr ombopag therapy, use of Dimension Simpson TBIL is not recommended. Chloride [Moles/Vol] 110 mmol/L 98-107 [facility] Cholesterol [Mass/Vol] 196 mg/dL <200 [facility] Comment on above: <200 mg/dL Desirable 200-240 mg/dL Borderline >240 mg/dL High Risk Eosinophils/100 WBC (Bld) 4.4 % 0-5 [facility] Glucose [Mass/Vol] 90 mg/dL 74-106 [facility] Neutrophils (Bld) [#/Vol] 2.9 10*3/uL 2.0-7.7 [facility] Neutrophils/100 WBC (Bld) 43.3 % 47-70 [facility] Potassium [Moles/Vol] 4.4 mmol/L 3.5-5.1 [facility] Protein [Mass/Vol] 6.2 g/dL 6.4-8.2 [facility] Sodium [Moles/Vol] 143 mmol/L 136-145 [facility] Triglyceride [Mass/Vol] 157 mg/dL <199 [facility] Comment on above: The drugs N-Acetylcy steine and Metamizole may falsely depress this assay.Serum Triglycerides Reference Interval Normal <150 mg/dL Borderline high 150 - 199 mg/dL High 200 - 499 mg/dL Very High > or = 500 mg/dL WBC (Bld) [#/Vol] 6.8 10*3/uL 4.4-11.0 [facility] Blood erythrocytes count (nu mber/volume)Ordered By: Saurabh Fernandez on 02-06-2023 RBC (Bld) [#/Vol] 4.40 10*6/uL 4.2-5.4 [facility] Blood hemoglobin measurement (mass/volume)Ordered By: Saurabh Fernandez on 02-06-2023 Hemoglobin (Bld) [Mass/Vol] 13.5 g/dL 12.0-15.0 [facility] Blood lymphocytes/100 leukoc ytesOrdered By: Saurabh Fernandez on 02-06-2023 Lymphocytes/100 WBC (Bld) 44.0 % 19-41 [facility] Blood monocytes/100 leukocyt esOrdered By: Saurabh Fernandez on 02-06-2023 Monocytes/100 WBC (Bld) 7.6 % 0-10 [facility] Blood platelet mean volumeOr dered By: Saurabh Fernandez on 02-06-2023 Platelet mean volume (Bld) [Entitic vol] 11.6 fL 6.2-12.0 [facility] Determination of erythrocyte mean corpuscular volume (MCV)Ordered By: Saurabh Fernandez on 02-06-2023 MCV (RBC) [Entitic vol] 100.0 fL 81-99 [facility] Hematocrit Auto (Bld) [Volum e fraction]Ordered By: Saurabh Fernandez on 02-06-2023 Hematocrit (Bld) [Volume fraction] 44.0 % 37-47 [facility] Laboratory - Chemistry and C hemistry - challengeOrdered By: Saurabh Fernandez on 02-06-2023 ALP [Catalytic activity/Vol] 63 U/L 45-117 [facility] ALT [Catalytic activity/Vol] 20 U/L 13-56 [facility] CO2 [Moles/Vol] 28.0 mmol/L 21.0-32.0 [facility] Globulin (S) [Mass/Vol] 3.8 g/dL 2.2-4.2 [facility] Urea nitrogen/Creatinine [Mass ratio] 25.0 mg/mg 10-20 [facility] Laboratory - Hematology and Cell countsOrdered By: Saurabh Fernandez on 02-06-2023 Erythrocyte distribution width (RBC) [Entitic vol] 51.3 fL 35.1-43.9 [facility] Erythrocyte distribution width (RBC) [Ratio] 13.9 % 11.6-14.6 [facility] Immature granulocytes/100 WBC (Bld) 0.400 % 0.0-0.9 [facility] Comment on above: IG% - Immature Granu locytes (promyelocytes, myelocytes and metamyelocytes) > 1% indicates that a LEFT SHIFT is Present. MCH (RBC) [Entitic mass] 30.7 pg 27.0-32.0 [facility] Nucleated RBC/100 WBC (Bld) [Ratio] 0 % 0-5 [facility] Auto (RBC) [Mass/Vol]Or dered By: Saurabh Fernandez on 02-06-2023 MCHC (RBC) [Mass/Vol] 30.7 g/dL 32-36 [facility] No Panel InformationOrdered By: Saurabh Fernandez on 02-06-2023 Estimated GFR (MDRD) Amer 84 mL/min >60 [facility] Comment on above: GFR Calc Estimated GFR (MDRD) Non-Af Amer 69 mL/min >60 [facility] Comment on above: Non- GFR Calc Thyroid Stimulating Hormone (TSH) 2.21 uIU/mL 0.358-3.74 [facility] Platelets bldOrdered By: Ambreen Fernandez on 02-06-2023 Platelets (Bld) [#/Vol] 204 10*3/uL 150-450 [facility] Serum or plasma albumin tyrese urement (mass/volume)Ordered By: Saurabh Fernandez on 02-06-2023 Albumin [Mass/Vol] 2.4 g/dL 3.2-5.0 [facility] Serum or plasma albumin/glob ulin mass ratioOrdered By: Saurabh Fernandez on 02-06-2023 Albumin/Globulin [Mass ratio] 0.6 {ratio} 0.9-2.4 [facility] Serum or plasma calcium tyrese urement (mass/volume)Ordered By: Saurabh Fernandez on 02-06-2023 Calcium [Mass/Vol] 8.2 mg/dL 8.5-10.1 [facility] Serum or plasma cholesterol in HDL measurement (mass/volume)Ordered By: Saurabh Fernandez on 02-06-2023 Cholesterol in HDL [Mass/Vol] 51 mg/dL >40 [facility] Comment on above: The drugs N-Acetylcy steine and Metamizole may falsely depress this assay. Reference Range HDL <40 mg/dL Low HDL Cholesterol HDL >or= 60 mg/dL High HDL Cholesterol Serum or plasma cholesterol in VLDL measurement (mass/volume)Ordered By: Saurabh Fernandez on 02-06-2023 Cholesterol in VLDL [Mass/Vol] 31 mg/dL 5-40 [facility] Serum or plasma creatinine m easurement (mass/volume)Ordered By: Saurabh Fernandez on 02-06-2023 Creatinine [Mass/Vol] 0.84 mg/dL 0.55-1.02 [facility] Comment on above: The validity of the calculated GFR & GFRAA in patients over 70 years has not been determined. Clinical correlation is essential. Serum or plasma low density lipoprotein (LDL) cholesterol measurement (mass/volume)Ordered By: Saurabh Fernandez on 02-06-2023 Cholesterol in LDL [Mass/Vol] 114 mg/dL 0-130 [facility] Serum or plasma urea nitroge n measurement (mass/volume)Ordered By: Saurabh Fernandez on 02-06-2023 Urea nitrogen [Mass/Vol] 21 mg/dL 7-18 [facility] Thin prep Papanicolaou smear with manual screeningOrdered By: Saurabh Fernandez on 02-06-2023 Thin prep Papanicolaou smear with manual screening 15 U/L 15-37 [facility] Thin prep Papanicolaou smear with manual screening 5 5-15 [facility] No Panel InformationOrdered By: Saurabh Fernandez on 01-13-2023 Valproic Acid (Depakene) Level 38 ug/mL 50-100 [facility] Absolute lymphocyte countOrd ered By: Saurabh Fernandez on 11-14-2022 Lymphocytes Auto (Unsp spec) [#/Vol] 2.82 10*3/uL 0.83-4.51 [facility] Basophil percentageOrdered B y: Saurabh Fernandez on 11-14-2022 Basophils/100 WBC (Bld) 0.3 % 0-1 [facility] Bilirubin [Mass/Vol] 0.40 mg/dL 0.20-1.00 [facility] Comment on above: For patients on eltr ombopag therapy, use of Dimension Simpson TBIL is not recommended. Chloride [Moles/Vol] 111 mmol/L 98-107 [facility] Cholesterol [Mass/Vol] 179 mg/dL <200 [facility] Comment on above: <200 mg/dL Desirable 200-240 mg/dL Borderline >240 mg/dL High Risk Eosinophils/100 WBC (Bld) 3.6 % 0-5 [facility] Glucose [Mass/Vol] 77 mg/dL 74-106 [facility] Neutrophils (Bld) [#/Vol] 6.6 10*3/uL 2.0-7.7 [facility] Neutrophils/100 WBC (Bld) 61.7 % 47-70 [facility] Potassium [Moles/Vol] 4.2 mmol/L 3.5-5.1 [facility] Protein [Mass/Vol] 6.4 g/dL 6.4-8.2 [facility] Sodium [Moles/Vol] 145 mmol/L 136-145 [facility] Triglyceride [Mass/Vol] 124 mg/dL <199 [facility] Comment on above: The drugs N-Acetylcy steine and Metamizole may falsely depress this assay.Serum Triglycerides Reference Interval Normal <150 mg/dL Borderline high 150 - 199 mg/dL High 200 - 499 mg/dL Very High > or = 500 mg/dL WBC (Bld) [#/Vol] 10.7 10*3/uL 4.4-11.0 [facility] Blood erythrocytes count (nu mber/volume)Ordered By: Saurabh Fernandez on 11-14-2022 RBC (Bld) [#/Vol] 4.11 10*6/uL 4.2-5.4 [facility] Blood hemoglobin measurement (mass/volume)Ordered By: Saurabh Fernandez on 11-14-2022 Hemoglobin (Bld) [Mass/Vol] 12.7 g/dL 12.0-15.0 [facility] Blood lymphocytes/100 leukoc ytesOrdered By: Saurabh Fernandez on 11-14-2022 Lymphocytes/100 WBC (Bld) 26.4 % 19-41 [facility] Blood monocytes/100 leukocyt esOrdered By: Saurabh Fernandez on 11-14-2022 Monocytes/100 WBC (Bld) 7.6 % 0-10 [facility] Blood platelet mean volumeOr dered By: Saurabh Fernandez on 11-14-2022 Platelet mean volume (Bld) [Entitic vol] 11.6 fL 6.2-12.0 [facility] Determination of erythrocyte mean corpuscular volume (MCV)Ordered By: Saurabh Fernandez on 11-14-2022 MCV (RBC) [Entitic vol] 99.5 fL 81-99 [facility] Hematocrit Auto (Bld) [Volum e fraction]Ordered By: Saurabh Fernandez on 11-14-2022 Hematocrit (Bld) [Volume fraction] 40.9 % 37-47 [facility] Laboratory - Chemistry and C hemistry - challengeOrdered By: Saurabh Fernandez on 11-14-2022 ALP [Catalytic activity/Vol] 70 U/L 45-117 [facility] ALT [Catalytic activity/Vol] 22 U/L 13-56 [facility] CO2 [Moles/Vol] 29.0 mmol/L 21.0-32.0 [facility] Globulin (S) [Mass/Vol] 3.9 g/dL 2.2-4.2 [facility] Urea nitrogen/Creatinine [Mass ratio] 25.1 mg/mg 10-20 [facility] Laboratory - Hematology and Cell countsOrdered By: Saurabh Fernandez on 11-14-2022 Erythrocyte distribution width (RBC) [Entitic vol] 52.2 fL 35.1-43.9 [facility] Erythrocyte distribution width (RBC) [Ratio] 14.3 % 11.6-14.6 [facility] Immature granulocytes/100 WBC (Bld) 0.400 % 0.0-0.9 [facility] Comment on above: IG% - Immature Granu locytes (promyelocytes, myelocytes and metamyelocytes) > 1% indicates that a LEFT SHIFT is Present. MCH (RBC) [Entitic mass] 30.9 pg 27.0-32.0 [facility] Nucleated RBC/100 WBC (Bld) [Ratio] 0 % 0-5 [facility] MCHC Auto (RBC) [Mass/Vol]Or dered By: Saurabh Fernandez on 11-14-2022 MCHC (RBC) [Mass/Vol] 31.1 g/dL 32-36 [facility] No Panel InformationOrdered By: Saurabh Fernandez on 11-14-2022 Estimated GFR (MDRD) Amer 84 mL/min >60 [facility] Comment on above: GFR Calc Estimated GFR (MDRD) Non-Af Amer 70 mL/min >60 [facility] Comment on above: Non- GFR Calc Thyroid Stimulating Hormone (TSH) 3.57 uIU/mL 0.358-3.74 [facility] Platelets bldOrdered By: Ambreen Fernandez on 11-14-2022 Platelets (Bld) [#/Vol] 209 10*3/uL 150-450 [facility] Serum or plasma albumin tyrese urement (mass/volume)Ordered By: Saurabh Fernandez on 11-14-2022 Albumin [Mass/Vol] 2.5 g/dL 3.2-5.0 [facility] Serum or plasma albumin/glob ulin mass ratioOrdered By: Saurabh Fernandez on 11-14-2022 Albumin/Globulin [Mass ratio] 0.6 {ratio} 0.9-2.4 [facility] Serum or plasma calcium tyrese urement (mass/volume)Ordered By: Saurabh Fernandez on 11-14-2022 Calcium [Mass/Vol] 8.5 mg/dL 8.5-10.1 [facility] Serum or plasma cholesterol in HDL measurement (mass/volume)Ordered By: Saurabh Fernandez on 11-14-2022 Cholesterol in HDL [Mass/Vol] 48 mg/dL >40 [facility] Comment on above: The drugs N-Acetylcy steine and Metamizole may falsely depress this assay. Reference Range HDL <40 mg/dL Low HDL Cholesterol HDL >or= 60 mg/dL High HDL Cholesterol Serum or plasma cholesterol in VLDL measurement (mass/volume)Ordered By: Saurabh Fernandez on 11-14-2022 Cholesterol in VLDL [Mass/Vol] 25 mg/dL 5-40 [facility] Serum or plasma creatinine m easurement (mass/volume)Ordered By: Saurabh Fernandez on 11-14-2022 Creatinine [Mass/Vol] 0.84 mg/dL 0.55-1.02 [facility] Comment on above: The validity of the calculated GFR & GFRAA in patients over 70 years has not been determined. Clinical correlation is essential. Serum or plasma low density lipoprotein (LDL) cholesterol measurement (mass/volume)Ordered By: Saurabh Fernandez on 11-14-2022 Cholesterol in LDL [Mass/Vol] 106 mg/dL 0-130 [facility] Serum or plasma urea nitroge n measurement (mass/volume)Ordered By: Saurabh Fernandez on 11-14-2022 Urea nitrogen [Mass/Vol] 21 mg/dL 7-18 [facility] Thin prep Papanicolaou smear with manual screeningOrdered By: Saurabh Fernandez on 11-14-2022 Thin prep Papanicolaou smear with manual screening 21 U/L 15-37 [facility] Thin prep Papanicolaou smear with manual screening 5 5-15 [facility] No Panel InformationOrdered By: Saurabh Fernandez on 10-21-2022 Valproic Acid (Depakene) Level 31 ug/mL 50-100 [facility] Progress Noteon 08-28-2022 Progress Note [...] to 10 mg daily for prophylaxis Normal [facility] Absolute lymphocyte countOrd ered By: Harpal Ramirez on 08-23-2022 Lymphocytes Auto (Unsp spec) [#/Vol] 2.14 10*3/uL 0.83-4.51 [facility] Basophil percentageOrdered B y: Harpal Ramirez on 08-23-2022 Basophils/100 WBC (Bld) 0.6 % 0-1 [facility] Eosinophils/100 WBC (Bld) 4.1 % 0-5 [facility] Neutrophils (Bld) [#/Vol] 3.5 10*3/uL 2.0-7.7 [facility] Neutrophils/100 WBC (Bld) 53.2 % 47-70 [facility] WBC (Bld) [#/Vol] 6.6 10*3/uL 4.4-11.0 [facility] Blood erythrocytes count (nu mber/volume)Ordered By: Harpal Ramirez on 08-23-2022 RBC (Bld) [#/Vol] 3.84 10*6/uL 4.2-5.4 [facility] Blood hemoglobin measurement (mass/volume)Ordered By: Harpal Ramirez on 08-23-2022 Hemoglobin (Bld) [Mass/Vol] 11.7 g/dL 12.0-15.0 [facility] Blood lymphocytes/100 leukoc ytesOrdered By: Harpal Ramirez on 08-23-2022 Lymphocytes/100 WBC (Bld) 32.5 % 19-41 [facility] Blood monocytes/100 leukocyt esOrdered By: Harpal Ramirez on 08-23-2022 Monocytes/100 WBC (Bld) 9.1 % 0-10 [facility] Blood platelet mean volumeOr dered By: Harpal Ramirez on 08-23-2022 Platelet mean volume (Bld) [Entitic vol] 11.5 fL 6.2-12.0 [facility] Determination of erythrocyte mean corpuscular volume (MCV)Ordered By: Harpal Ramirez on 08-23-2022 MCV (RBC) [Entitic vol] 96.6 fL 81-99 [facility] Hematocrit Auto (Bld) [Volum e fraction]Ordered By: Harpal Ramirez on 08-23-2022 Hematocrit (Bld) [Volume fraction] 37.1 % 37-47 [facility] Laboratory - Hematology and Cell countsOrdered By: Harpal Ramirez on 08-23-2022 Erythrocyte distribution width (RBC) [Entitic vol] 50.7 fL 35.1-43.9 [facility] Erythrocyte distribution width (RBC) [Ratio] 14.4 % 11.6-14.6 [facility] Immature granulocytes/100 WBC (Bld) 0.500 % 0.0-0.9 [facility] Comment on above: IG% - Immature Granu locytes (promyelocytes, myelocytes and metamyelocytes) > 1% indicates that a LEFT SHIFT is Present. MCH (RBC) [Entitic mass] 30.5 pg 27.0-32.0 [facility] Nucleated RBC/100 WBC (Bld) [Ratio] 0 % 0-5 [facility] MCHC Auto (RBC) [Mass/Vol]Or dered By: Harpal Ramirez on 08-23-2022 MCHC (RBC) [Mass/Vol] 31.5 g/dL 32-36 [facility] Platelets bldOrdered By: Kanu Ramirez on 08-23-2022 Platelets (Bld) [#/Vol] 226 10*3/uL 150-450 [facility] 36on 08-22-2022 36 Last seen:11/28/21 [facility] Basophil percentageOrdered B y: Harpal Ramirez on 08-22-2022 Bilirubin [Mass/Vol] 0.60 mg/dL 0.20-1.00 [facility] Comment on above: For patients on eltr ombopag therapy, use of Dimension Simpson TBIL is not recommended. Chloride [Moles/Vol] 105 mmol/L 98-107 [facility] Cholesterol [Mass/Vol] 189 mg/dL <200 [facility] Comment on above: <200 mg/dL Desirable 200-240 mg/dL Borderline >240 mg/dL High Risk Glucose [Mass/Vol] 83 mg/dL 74-106 [facility] Potassium [Moles/Vol] 4.1 mmol/L 3.5-5.1 [facility] Protein [Mass/Vol] 7.6 g/dL 6.4-8.2 [facility] Sodium [Moles/Vol] 140 mmol/L 136-145 [facility] Triglyceride [Mass/Vol] 121 mg/dL <199 [facility] Comment on above: The drugs N-Acetylcy steine and Metamizole may falsely depress this assay.Serum Triglycerides Reference Interval Normal <150 mg/dL Borderline high 150 - 199 mg/dL High 200 - 499 mg/dL Very High > or = 500 mg/dL Laboratory - Chemistry and C hemistry - challengeOrdered By: Harpal Ramirez on 08-22-2022 ALP [Catalytic activity/Vol] 75 U/L 45-117 [facility] ALT [Catalytic activity/Vol] 28 U/L 13-56 [facility] CO2 [Moles/Vol] 30.0 mmol/L 21.0-32.0 [facility] Globulin (S) [Mass/Vol] 4.5 g/dL 2.2-4.2 [facility] Urea nitrogen/Creatinine [Mass ratio] 28.4 mg/mg 10-20 [facility] No Panel InformationOrdered By: Harpal Ramirez on 08-22-2022 Estimated GFR (MDRD) Amer 70 mL/min >60 [facility] Comment on above: GFR Calc Estimated GFR (MDRD) Non-Af Amer 58 mL/min >60 [facility] Comment on above: Non- GFR Calc Thyroid Stimulating Hormone (TSH) 2.50 uIU/mL 0.358-3.74 [facility] Serum or plasma albumin tyrese urement (mass/volume)Ordered By: Harpal Ramirez on 08-22-2022 Albumin [Mass/Vol] 3.1 g/dL 3.2-5.0 [facility] Serum or plasma albumin/glob ulin mass ratioOrdered By: Harpal Ramirez on 08-22-2022 Albumin/Globulin [Mass ratio] 0.7 {ratio} 0.9-2.4 [facility] Serum or plasma calcium tyrese urement (mass/volume)Ordered By: Harpal Ramirez on 08-22-2022 Calcium [Mass/Vol] 9.1 mg/dL 8.5-10.1 [facility] Serum or plasma cholesterol in HDL measurement (mass/volume)Ordered By: Harpal Ramirez on 08-22-2022 Cholesterol in HDL [Mass/Vol] 62 mg/dL >40 [facility] Comment on above: The drugs N-Acetylcy steine and Metamizole may falsely depress this assay. Reference Range HDL <40 mg/dL Low HDL Cholesterol HDL >or= 60 mg/dL High HDL Cholesterol Serum or plasma cholesterol in VLDL measurement (mass/volume)Ordered By: Harpal Ramirez on 08-22-2022 Cholesterol in VLDL [Mass/Vol] 24 mg/dL 5-40 [facility] Serum or plasma creatinine m easurement (mass/volume)Ordered By: Harpal Ramirez on 08-22-2022 Creatinine [Mass/Vol] 0.98 mg/dL 0.55-1.02 [facility] Comment on above: The validity of the calculated GFR & GFRAA in patients over 70 years has not been determined. Clinical correlation is essential. Serum or plasma low density lipoprotein (LDL) cholesterol measurement (mass/volume)Ordered By: Harpal Ramirez on 08-22-2022 Cholesterol in LDL [Mass/Vol] 103 mg/dL 0-130 [facility] Serum or plasma urea nitroge n measurement (mass/volume)Ordered By: Harpal Ramirez on 08-22-2022 Urea nitrogen [Mass/Vol] 28 mg/dL 7-18 [facility] Thin prep Papanicolaou smear with manual screeningOrdered By: Harpal Ramirez on 08-22-2022 Thin prep Papanicolaou smear with manual screening 19 U/L 15-37 [facility] Thin prep Papanicolaou smear with manual screening 5 5-15 [facility] No Panel InformationOrdered By: Harpal Ramirez on 07-29-2022 Valproic Acid (Depakene) Level 38 ug/mL 50-100 [facility] Absolute lymphocyte countOrd ered By: Harpal Ramirez on 07-24-2022 Lymphocytes Auto (Unsp spec) [#/Vol] 2.39 10*3/uL 0.83-4.51 [facility] Basophil percentageOrdered B y: Harpal Ramirez on 07-24-2022 Basophils/100 WBC (Bld) 1.0 % 0-1 [facility] Chloride [Moles/Vol] 112 mmol/L 98-107 [facility] Eosinophils/100 WBC (Bld) 9.2 % 0-5 [facility] Glucose [Mass/Vol] 77 mg/dL 74-106 [facility] Neutrophils (Bld) [#/Vol] 2.3 10*3/uL 2.0-7.7 [facility] Neutrophils/100 WBC (Bld) 39.3 % 47-70 [facility] Potassium [Moles/Vol] 4.3 mmol/L 3.5-5.1 [facility] Comment on above: Slight Hemolysis, Re sult may be falsely increased. Sodium [Moles/Vol] 142 mmol/L 136-145 [facility] WBC (Bld) [#/Vol] 5.7 10*3/uL 4.4-11.0 [facility] Blood erythrocytes count (nu mber/volume)Ordered By: Harpal Ramirez on 07-24-2022 RBC (Bld) [#/Vol] 4.17 10*6/uL 4.2-5.4 [facility] Blood hemoglobin measurement (mass/volume)Ordered By: Harpal Ramirez on 07-24-2022 Hemoglobin (Bld) [Mass/Vol] 13.1 g/dL 12.0-15.0 [facility] Blood lymphocytes/100 leukoc ytesOrdered By: Harpal Ramirez on 07-24-2022 Lymphocytes/100 WBC (Bld) 41.6 % 19-41 [facility] Blood monocytes/100 leukocyt esOrdered By: Harpal Ramirez on 07-24-2022 Monocytes/100 WBC (Bld) 8.4 % 0-10 [facility] Blood platelet mean volumeOr dered By: Harpal Ramirez on 07-24-2022 Platelet mean volume (Bld) [Entitic vol] 11.5 fL 6.2-12.0 [facility] Determination of erythrocyte mean corpuscular volume (MCV)Ordered By: Harpal Ramirez on 07-24-2022 MCV (RBC) [Entitic vol] 99.0 fL 81-99 [facility] Hematocrit Auto (Bld) [Volum e fraction]Ordered By: Harpal Ramirez on 07-24-2022 Hematocrit (Bld) [Volume fraction] 41.3 % 37-47 [facility] Laboratory - Chemistry and C hemistry - challengeOrdered By: Harpal Ramirez on 07-24-2022 CO2 [Moles/Vol] 25.0 mmol/L 21.0-32.0 [facility] Urea nitrogen/Creatinine [Mass ratio] 24.3 mg/mg 10-20 [facility] Laboratory - Hematology and Cell countsOrdered By: Harpal Ramirez on 07-24-2022 Erythrocyte distribution width (RBC) [Entitic vol] 54.2 fL 35.1-43.9 [facility] Erythrocyte distribution width (RBC) [Ratio] 14.8 % 11.6-14.6 [facility] Immature granulocytes/100 WBC (Bld) 0.500 % 0.0-0.9 [facility] Comment on above: IG% - Immature Granu locytes (promyelocytes, myelocytes and metamyelocytes) > 1% indicates that a LEFT SHIFT is Present. MCH (RBC) [Entitic mass] 31.4 pg 27.0-32.0 [facility] Nucleated RBC/100 WBC (Bld) [Ratio] 0 % 0-5 [facility] MCHC Auto (RBC) [Mass/Vol]Or dered By: Harpal Ramirez on 07-24-2022 MCHC (RBC) [Mass/Vol] 31.7 g/dL 32-36 [facility] No Panel InformationOrdered By: Harpal Ramirez on 07-24-2022 Estimated GFR (MDRD) Amer 66 mL/min >60 [facility] Comment on above: GFR Calc Estimated GFR (MDRD) Non-Af Amer 55 mL/min >60 [facility] Comment on above: Non- GFR Calc Thyroid Stimulating Hormone (TSH) 2.63 uIU/mL 0.358-3.74 [facility] Platelets bldOrdered By: Kanu Ramirez on 07-24-2022 Platelets (Bld) [#/Vol] 201 10*3/uL 150-450 [facility] Progress Noteon 07-24-2022 Progress Note See Scanned Progress Notes Normal [facility] Serum or plasma calcium tyrese urement (mass/volume)Ordered By: Harpal Ramirez on 07-24-2022 Calcium [Mass/Vol] 8.5 mg/dL 8.5-10.1 [facility] Serum or plasma creatinine m easurement (mass/volume)Ordered By: Harpal Ramirez on 07-24-2022 Creatinine [Mass/Vol] 1.03 mg/dL 0.55-1.02 [facility] Comment on above: The validity of the calculated GFR & GFRAA in patients over 70 years has not been determined. Clinical correlation is essential. Serum or plasma urea nitroge n measurement (mass/volume)Ordered By: Harpal Ramirez on 07-24-2022 Urea nitrogen [Mass/Vol] 25 mg/dL 7-18 [facility] Thin prep Papanicolaou smear with manual screeningOrdered By: Harpal Ramirez on 07-24-2022 Thin prep Papanicolaou smear with manual screening 5 5-15 [facility] CASE MANAGEMon 06-24-2022 CASE MANAGEM HNO ID: [id number] Author: LATRICE Munoz Service: Social Work Author Type: [employer] Type: Care Mgt Progress Note Filed: 06/24/2022 1:34 PM Note Text: BEHAVIORAL HEALTH SOCIAL WORK DISCHARGE NOTE SERVICE DATE: 06/24/2022 SERVICE TIME: 10:30 am Discharge Information Row Name Admission (Current) from 06/06/2022 in [facility] Psychiatry Follow-Up Appointment Psychiatrist Name Pt to be followed at facility Guardian/Surrogate Decision Maker Name Daughter Jennifer Hidalgo is POA Discharge Disposition Discharge Disposition [place] Referral Information Agency Name [facility] Address [address], [place] [phone] Additional Discharge Information Additional Discharge Resources Jeana: [phone] Patient/Manager Commodities Agreeable With Discharge Plan: Yes FREEDOM OF CHOICE EXPLAINED? Yes. A list of appropriate referrals presented to/discussed with POA on 06/07/22 at 1200 Patient/Manager Commodities Given/Explained Medicare Discharge Notice (IM letter): Yes (Date and Time): 06/06/22 at 11:55 am TRANSPORTATION ARRANGEMENTS: Mode of Transportation: Ambulance Transportation Agency and Phone #: [facility] [phone] . Date of Trip: 06/24/22 Type of Service: BLS Non-emergency Is Patient Medicaid Pending: No PRESCRIPTIONS FILLED PRIOR TO DISCHARGE: No, patient discharged to alf ADDITIONAL NOTES: SW discussed Pt in treatment team and observed her on unit. No acute safety concerns at this time, no SI/HI/SIB or AVH. Family is aware and agreeable to discharge plan above. No further SW intervention required, per MD Pt is adequate for discharge. SIGNATURE: LATRICE Munoz PATIENT NAME: Chay Teague DATE: June 24, 2022 TIME: 11:00 AM Normal [facility] CNDSon 06-24-2022 [facility] HNO ID: [id number] Author: John Penny MD Service: Psychiatry Author [...] performed Hospital Course: Patient was admitted to [facility] after she appeared to [facility] for wandering behavior; behavioral disturbances; was found to suffer UTI, received IV Rocephin. Patient brought in from home by family for confusion, suffered frontal lobe dementia and multiple medical problems, countdown to suffer UTI. Daughter brought the patient to the ED. Daughter is power of immigration attorney after she contacted by the local [...] she is on a waiting list for [facility]. 06/07/2022 Seen in day area Said she [...] Patient Condition @ Discharge: Stable Discharge Disposition: Half-Way Facility Complications: None ASSESSMENT: The status of [...] (Oral) Resp 18 (more content not included)... [facility] NURSING PROGon 06-24-2022 NURSING PROG HNO ID: [id number] Author: Robyn Roman RN Service: ? Author Type: Registered Nurse Type: Nursing Progress Note Filed: 06/24/2022 2:21 PM Note Text: Daily Note: Pt in day area at change of shift, meal and medication compliant. She will be discharged today, property underwriter attempted multiple time to call facility however was left on hold then disconnected. Broset Score-0 [facility] NURSING PROG HNO ID: [id number] Author: Zelda Serrano RN Service: Behavioral Health Author Type: Registered Nurse Type: Nursing Progress Note Filed: 06/24/2022 6:19 AM Note Text: Other: Pt is resting quietly in bed; monitor for safety q 15 min. Broset 1 0600 pt slept 7 hrs [facility] NURSING PROG HNO ID: [id number] Author: Albert Bryan RN Service: Behavioral Health [...] Broset score-2 (Confused and irritable at times. 222: She was restless at this time screaming for help. She was not able to follow redirection. Medicated with Ativan 0.5 mg PO. Will continue to monitor. 0: She was ushered to her room and placed on bed comfortably. She was calm and pleasant at this time. Mood was observed to be labile. Every 15 minutes rounds observed at all times. [facility] NURSING PROGon [facility]2022 [facility]: [id number] Author: Wesley Espinal RN Service: Nursing Author [...] pleasant. Broset:2 Q15 minute safety checks maintained [facility] NURSING [facility] HNO ID: [id number] Author: Albert Bryan RN Service: Behavioral Health [...] calm and pleasant. Will continue to monitor. [facility] [id number] Author: Robyn Roman RN Service: ? Author Type: Registered Nurse Type: Nursing Progress Note Filed: 06/22/2022 6:44 PM Note Text: Daily Note: Pt in bed at change of shift,meal and medication compliant, pt behavior is in control for most of the shift, she has been yelling out but easily redirectable. Broset Score-0 [facility] NURSING PROG HNO ID: [id number] Author: Mar Barros RN Service: Nursing Author [...] area reading a magazine, in good spirits. [facility] CASE MANAGEMon 06-21-2022 CASE MANAGEM HNO ID: [id number] Author: LATRICE Munoz Service: Social Work Author Type: [employer] Type: Care Mgt Progress Note Filed: 06/21/2022 1:20 PM Note Text: BEHAVIORAL HEALTH SOCIAL WORK PROGRESS NOTE SERVICE DATE: 06/21/2022 SERVICE TIME: 1320 Pt is scheduled for discharge on Friday06/24/22 to [facility]. Transport is scheduled for 2:00 pm via [facility] (trip #[id number]). Pt will need LOC and SW to submit for one on Friday morning prior to discharge. SW to follow. SIGNATURE: LATRICE Munoz PATIENT NAME: Chay Teague DATE: June 21, 2022 TIME: 8:53 AM [facility] NURSING PROGon 06-21-2022 NURSING PROG HNO ID: [id number] Author: Teo López RN Service: Behavioral Health [...] 15 min safety checks maintained. Will monitor. [facility] NURSING PROG HNO ID: [id number] Author: Taylor North RN Service: Nursing Author Type: Registered Nurse Type: Nursing Progress Note Filed: 06/21/2022 7:06 AM Note Text: Nursing Progress Note Patient Name: Chay Teague Patient Location: [place] [id number] Daily Note: Received report and assumed [...] This note was completed by: Taylor North [facility] CASE MANAGEMon 06-20-2022 CASE MANAGEM HNO ID: [id number] Author: LATRICE Munoz Service: Social Work Author Type: [employer] Type: Care Mgt Progress Note Filed: 06/20/2022 2:18 PM Note Text: BEHAVIORAL HEALTH SOCIAL WORK PROGRESS NOTE SERVICE DATE: 06/20/2022 SERVICE TIME: 1:30 pm SW faxed updates to [facility] and spoke to [employer] admissions representative Estephania on the phone to notify of plan for discharge on Friday. SW to confirm discharge projection and schedule transportation. SW to follow. SIGNATURE: LATRICE Munoz PATIENT NAME: Chay Teague DATE: June 20, 2022 TIME: 2:17 PM [facility] NURSING PROGon 06-20-2022 NURSING PROG HNO ID: [id number] Author: Melisa Peña RN Service: Behavioral Health [...] cooperative with hands on care. Will monitor [facility] NURSING PROG HNO ID: [id number] Author: Zelda Serrano RN Service: Behavioral Health [...] am care completed then pt resumed sleeping. [facility] NURSING PROG HNO ID: [id number] Author: Nakul Allan RN Service: ? Author [...] observation. No additional issues at this time. [facility] NURSING PROGon 06-19-2022 NURSING PROG HNO ID: [id number] Author: Teo López RN Service: Behavioral Health [...] continence. Assist x1 for ambulation. [place]. Pt medication compliant whole with applesauce constant encouragement. No behavioral issues noted at this moment. No agitation noted. 15 min safety checks maintained. Will monitor [facility] NURSING PROG HNO ID: [id number] Author: Vitaliy Basurto RN Service: Nursing Author Type: Registered Nurse Type: Nursing Progress Note Filed: 06/19/2022 7:58 AM Note Text: Other: 2100 Pt was seen awake and pleasant upon approach sitting in a christine-chair in the day area but a little irritable when vital signs were taken. Pt is confused, [place] and needs constant cuing and encouragement with [...] after diaper changed. 0700 Slept 7 hrs. [facility] CASE MANAGEMon 06-18-2022 CASE MANAGEM HNO ID: [id number] Author: LATRICE Munoz Service: Social Work Author Type: Restoration Silversmith Type: Care Mgt Progress Note Filed: 06/18/2022 10:50 AM Note Text: BEHAVIORAL HEALTH SOCIAL WORK PROGRESS NOTE SERVICE DATE: 06/18/2022 SERVICE TIME: 0900 SW provided update to Pt's daughter Rachel Riojas ([phone]) as Pt's other daughter, Jennifer Hidalgo, is on vacation this week. Pt unable to discharge until at least 06/22/22 when new insurance (in network with [facility]) goes into effect. SW to follow. SIGNATURE: LATRICE Munoz PATIENT NAME: Chay Teague DATE: June 18, 2022 TIME: 9:18 AM [facility] NURSING PROGon 06-18-2022 NURSING PROG HNO ID: [id number] Author: Teo López RN Service: Behavioral Health [...] Tremors noted. Appetite is good. Pt is [place]. A/O to self pleasantly confused. No behavioral issues noted. 15 min safety checks maintained. Will monitor. [facility] NURSING PROG HNO ID: [id number] Author: Taylor North, RN Service: Nursing Author Type: Registered Nurse Type: Nursing Progress Note Filed: 06/18/2022 6:07 AM Note Text: Nursing Progress Note Patient Name: Chay Teague Patient Location: [place] [id number] Daily Note: Received report and assumed [...] This note was completed by: Taylor North [facility] THERAPY NTon 06-18-2022 THERAPY NT HNO ID: [id number] Author: Bre Roberts PT Service: Physical Therapy Author Type: Physical Therapist Type: Therapy (PT/OT/Speech/Resp) Filed: 06/18/2022 4:15 PM Note Text: Physical Therapy Treatment SERVICE DATE: 06/18/2022 SERVICE TIME: 1514 to 1541 ROOM: [place] [address] Recommended Discharge Disposition: Subacute/SNF Recommended Discharge Disposition [...] Past Medical History: advanced age, BMI 34.17; [place], HTN, asthma, hypothyroid, dementia, anxiety/depression Response to [...] family checks in at night. Assistance Available: multimedia teacher Prior Functional Level: Required Assistance Assistance Required [...] minimal verbalizations, limited engagement due to significant [place]; states name and CURRENT FUNCTIONAL STATUS: Most [...] resolve all f (more content not included)... [facility] NURSING PROGon 06-17-2022 NURSING PROG HNO ID: [id number] Author: Melisa Peña RN Service: Behavioral Health Author Type: Registered Nurse Type: Nursing Progress Note Filed: 06/17/2022 3:12 PM Note Text: Other: nursing progress 1510-pt was in bed until lunch this am. Pt was med compliant this am in applesauce. Pt was cooperative with hands on care. Pt ambulated with one assist. [facility] Pt has been calm and cooperative will monitor broset 1 [facility] NURSING PROG HNO ID: [id number] Author: Vitaliy Basurto RN Service: Nursing Author [...] 8 hrs. Cooperative with hands on care. [facility] NURSING PROGon 06-16-2022 NURSING PROG HNO ID: [id number] Author: Manda Proctor RN Service: Nursing Author [...] visit this afternoon. Will continue to monitor. [facility] NURSING PROG HNO ID: [id number] Author: Vitaliy Basurto RN Service: Nursing Author [...] Broset -1. 0700 Slept for 7 hrs. [facility] NURSING PROGon 06-15-2022 NURSING PROG HNO ID: [id number] Author: Soniya Hubbard RN Service: Nursing Author Type: Registered Nurse Type: Nursing Progress Note Filed: 06/15/2022 1:54 PM Note Text: Nursing Progress Note Topic of Note: Daily Note Chay Teague [id number] Assumed care of the pt at 0700. The pt is AANDOX1, confused and forgetful. Pt C/O no pain or discomfort at this time. The pt is disruptive at times calling out "please help me help me " while tapping on the table. Pt is redirectable. The pt is medication compliant whole. The pt is pleasant on approach.the pt is [place]. The pt is an assist for all care. The pt is incontinent. Pt up in the day area for close monitoring. 15 min safety checks maintained. Will continue to monitor. This note was completed by: Soniya Hubbard [facility] CASE MANAGEMon 06-14-2022 CASE MANAGEM HNO ID: [id number] Author: LATRICE Munoz Service: Social Work Author Type: Restoration Silversmith Type: Care Mgt Progress Note Filed: 06/14/2022 2:38 PM Note Text: BEHAVIORAL HEALTH SOCIAL WORK PROGRESS NOTE SERVICE DATE: 06/14/2022 SERVICE TIME: 1320 SW called Estephania in [facility] admissions ([phone]) and provided detailed update. SW to await return phone call. No specific discharge date identified at this time. SW to follow. Update 1430: SW received return call from facility stating that admission would have to wait until appropriate insurance is in place on 06/22/22. SIGNATURE: LATRICE Munoz PATIENT NAME: Chay Teague DATE: June 14, 2022 TIME: 8:31 AM [facility] NURSING PROGon 06-14-2022 NURSING PROG HNO ID: [id number] Author: Mendez Nguyen RN Service: ? Author [...] Date: June 14, 2022 Time: 9:26 PM [facility] NURSING PROG HNO ID: [id number] Author: Corrina Chandler RN Service: Nursing Author Type: Registered Nurse Type: Nursing Progress Note Filed: 06/14/2022 7:07 PM Note Text: Other: Pt. Is visible on this unit. No s/s of distress noted. Compliant with medications. Continues to be confused. Constantly asking staff for help and if she's ok. Fair appetite for meals. Will continue to monitor. [facility] NURSING PROG HNO ID: [id number] Author: Albert Bryan RN Service: Behavioral Health [...] this time asleep. Will continue to monitor. [facility] CASE MANAGEMon 06-13-2022 CASE MANAGEM HNO ID: [id number] Author: LATRICE Munoz Service: Social Work Author Type: Restoration Silversmith Type: Care Mgt Progress Note Filed: 06/13/2022 [...] Daughter was able to complete enrollment for [facility] dual advantage, effective date 06/22/22. SW to update facility and determine particulars of admission policy regarding future coverage. SW to follow. SIGNATURE: LATRICE Munoz PATIENT NAME: Chay Teague DATE: June 13, 2022 TIME: 11:10 AM [facility] NURSING PROGon 06-13-2022 NURSING PROG HNO ID: [id number] Author: Melisa Peña RN Service: Behavioral Health [...] visit this yudith will monitor broset 2 [facility] NURSING PROG HNO ID: [id number] Author: Vitaliy Basurto RN Service: Nursing Author Type: Registered Nurse Type: Nursing Progress Note Filed: 06/13/2022 6:07 AM Note Text: Other: 0000 Assumed care of pt. Received pt sleeping in bed, no signs of distress noted. No behavioral issue noted. Safety precautions maintained. 0700 Pt slept well for 9 hrs throughout the night. Behavior in control. Broset -1 (confused) [facility] NUTRITIONon 06-13-2022 NUTRITION HNO ID: [id number] Author: Yoly Pan RD Service: Nutrition Therapy [...] DATE: June 13, 2022 TIME: 1:14 PM [facility] CASE MANAGEMon 06-12-2022 CASE MANAGEM HNO ID: [id number] Author: LATRICE Munoz Service: Social Work Author Type: Restoration Silversmith Type: Care Mgt Progress Note Filed: 06/12/2022 1:50 PM Note Text: BEHAVIORAL HEALTH SOCIAL WORK PROGRESS NOTE SERVICE DATE: 06/12/2022 SERVICE TIME: 1200 SW faxed clinicals to [facility]. director financial systems informed that they are not in network with [employer] and only have wanderguard. SW called Pt's daughter to update and she states that she will apply for [facility] Medicaid and that [facility] remain their first FOC. ASHLEY updated facility as to same. SIGNATURE: LATRICE Munoz PATIENT NAME: Chay Teague DATE: June 12, 2022 TIME: 1:19 PM [facility] NURSING PROGon 06-12-2022 NURSING PROG HNO ID: [id number] Author: Leticia Barker RN Service: Nursing Author [...] given. Broset-1, will continue assault, fall precs. [facility] NURSING PROG HNO ID: [id number] Author: Iva Bailey RN Service: Behavioral Health [...] are noted, anxious, Will cont to monitor. [facility] NURSING PROG HNO ID: [id number] Author: Gilbert Watson RN Service: ? Author [...] yelling this morning while in day area. [facility] CASE MANAGEMon 06-11-2022 CASE MANAGEM HNO ID: [id number] Author: LATRICE Munoz Service: Social Work Author Type: Restoration Silversmith Type: Care Mgt Progress Note Filed: 06/11/2022 1:50 PM Note Text: BEHAVIORAL HEALTH SOCIAL WORK PROGRESS NOTE SERVICE DATE: 06/11/2022 SERVICE TIME: 1300 SW received return call from Estephania in admissions at [facility]. She states that Pt would be coming LTC and would need a PAS (ASHLEY submitted for one and received favorable determination). She provided fax: [phone] for clinical information and her work cell for updates: [phone]. ASHLEY to send updated information. ASHLEY to follow. SIGNATURE: LATRICE Munoz PATIENT NAME: Chay Teague DATE: June 11, 2022 TIME: 9:17 AM [facility] NURSING PROGon 06-11-2022 NURSING PROG HNO ID: [id number] Author: Melisa Peña RN Service: Behavioral Health [...] bm. Pt calm and cooperative will monitor [facility] NURSING PROG HNO ID: [id number] Author: Taylor North RN Service: Nursing Author Type: Registered Nurse Type: Nursing Progress Note Filed: 06/11/2022 6:16 AM Note Text: Nursing Progress Note Patient Name: Chay Teague Patient Location: [place] [id number] - Daily Note: Received report and assumed care of patient at 1900. Patient seen in day area in christine chair. Pleasantly confused. Friendly with other patients and staff. Can be intrusive at times, observed patting other Patient's knee. Ssds Mk 2 Advanced Operator redirected Patient and educated on appropriate behavior. Patient cooperative with teaching. Med compliant whole in applesauce, but did spit out Colace gel capsule several times due to confusion. Denies pain. Assist of 1 to room. Safety maintained. 0600 Patient slept 5 hrs, Broset-1. This note was completed by: Taylor North [facility] THERAPY NTon 06-11-2022 THERAPY NT HNO ID: [id number] Author: Amarilys Salguero PTA Service: Physical Therapy Author Type: Associate Professor Of Biostatistics Type: Therapy (PT/OT/Speech/Resp) Filed: 06/11/2022 1:16 PM Note Text: ----- Attestation signed by Lisa Perez, PT at 06/11/2022 1:24 PM I reviewed and agree with the documentation corresponding to this therapy visit. SIGNATURE: Lisa Perez, PT DATE: June 11, 2022 TIME: 1:24 PM ----- Physical Therapy Treatment SERVICE DATE: 06/11/2022 SERVICE TIME: 1155 to 1220 ROOM: [id number] Recommended Discharge Disposition: Home PT Recommended Discharge [...] family checks in at night. Assistance Available: multimedia teacher Prior Functional Level: Required Assistance Assistance Required [...] Rehab Potential: Go (more content not included)... [facility] Valproate [Mass/Vol] 49.5 ug/mL Low 50.0-100.0 [facility] Comment on above: Order Comment: Speci men Type: BLOOD SPECIMENOrdering Facility: [facility] Address: [address] [place] [address] Result Comment: Refe rence ranges and high/low indicator flags are provided as general guidelines only. The treating physician must determine appropriate target levels/dosing based on the specific clinical situation. Performed By: #### 4 086-5 ####[facility] LABORATORYCLIA [id number] [place] [id number] [facility] CASE MANAGEMon 06-10-2022 CASE MANAGEM HNO ID: [id number] Author: LATRICE Munoz Service: Social Work Author Type: Restoration Silversmith Type: Care Mgt Progress Note Filed: 06/10/2022 2:07 PM Note Text: BEHAVIORAL HEALTH SOCIAL WORK PROGRESS NOTE SERVICE DATE: 06/10/2022 SERVICE TIME: 1300 SW placed call to [facility] admission department. SW informed admission director [...] DATE: June 10, 2022 TIME: 2:05 PM [facility] NURSING PROGon 06-10-2022 NURSING PROG HNO ID: [id number] Author: Melisa Peña RN Service: Behavioral Health Author Type: Registered Nurse Type: Nursing Progress Note Filed: 06/10/2022 5:20 PM Note Text: Other: nursing [id number] was up on the unit seated in the gerichair for safety pt was one assist with walking to the bathroom. Pt incontinent of urine and bm. Pt was med compliant with medications in apple sauce. Pt had no agitation or aggressive behavior will monitor broset 2 1065-pt was up in chair for dinner. Pt was fed dinner. Pt ate well. Pt was calm and cooperative. Pt was assist x1 to the bathroom pt was incontinent of small stool. Pt cooperative with hands on care will monitor [facility] NURSING PROGon 06-09-2022 NURSING PROG HNO ID: [id number] Author: Mendez Nguyen RN Service: ? Author [...] Date: June 09, 2022 Time: 9:49 PM [facility] NURSING PROG HNO ID: [id number] Author: Teo López RN Service: Behavioral Health [...] 15 min safety checks maintained. Will monitor. [facility] NURSING PROGon 06-08-2022 NURSING PROG HNO ID: [id number] Author: Mendez Nguyen RN Service: ? Author [...] Date: June 08, 2022 Time: 10:32 PM [facility] NURSING PROG HNO ID: [id number] Author: Gilbert Watson RN Service: ? Author [...] remained cooperative with care, incontinent of bladder. [facility] CASE MANAGEMon 06-07-2022 CASE MANAGEM HNO ID: [id number] Author: LATRICE Munoz Service: Social Work Author Type: Restoration Silversmith Type: Care Mgt Progress Note Filed: 06/07/2022 12:14 PM Note Text: BEHAVIORAL HEALTH SOCIAL WORK PROGRESS NOTE SERVICE DATE: 06/07/2022 SERVICE TIME: 12:00 pm Pt discussed in treatment team and observed on unit. Pt does appear more alert and organized than on previous day. She will remain inpatient through the weekend. SW to submit PAS on Friday (06/10/22) and follow units with [facility] with updated clinical information. SW to follow. SIGNATURE: LATRICE Munoz PATIENT NAME: Chay Teague DATE: June 07, 2022 TIME: 8:42 AM [facility] Lipid 1996 panelon 2 Cholesterol [Mass/Vol] 217 mg/dL High <200 [facility] Comment on above: Order Comment: Speci men Type: BLOOD SPECIMENOrdering Facility: [facility] Address: [address] [place] [address] Result Comment: <200 mg/dL, Desirable 200-239 mg/dL, Borderline high >239 mg/dL, High Performed By: #### 2 4331-1 ####[facility] LABORATORYCLIA [id number] [address] Cholesterol in HDL [Mass/Vol] 75 mg/dL Normal >39 [facility] Comment on above: Order Comment: Bisi marcella Type: BLOOD SPECIMENOrdering Facility: [facility] Address: [address] [place] [address] Result Comment: 40-5 9 mg/dL, Acceptable >59 mg/dL, High: Negative risk factor for coronary heart disease <40 mg/dL, Low: Positive risk factor for coronary heart disease Performed By: #### 2 4331-1 ####[facility]ATORYCLIA [id number] [address] Cholesterol in LDL [Mass/Vol] 124 mg/dL High <100 [facility] Comment on above: Order Comment: Bisi naranjo Type: BLOOD SPECIMENOrdering Facility: [facility] Address: [address] [place] [address] Result Comment: <100 mg/dL, Optimal 100-129 mg/dL, Near optimal/above optimal 130-159 mg/dL, Borderline high 160-189 mg/dL, High >189 mg/dL, Very high Secondary prevention optimal LDL Cholesterol levels are recommended to be < 70 mg/dL Performed By: #### 2 4331-1 ####[facility]ORATORYCLIA [id number] [address] Cholesterol in LDL/Cholesterol in HDL [Mass ratio] 1.65 {ratio} Normal <2.54 [facility] Comment on above: Order Comment: Sharina naranjo Type: BLOOD SPECIMENOrdering Facility: [facility] Address: [address] [place] [address] Result Comment: Refe rence: 1. National Cholesterol Education Program ATP III Guideline At-A-Glance Quick Desk Reference: National Heart, Lung, and Blood [place]. National Institutes of Health. 2001: NIH Publication No. 01-3305. 2. An International Atherosclerosis Society position paper: global recommendations for the management of dyslipidemia: executive summary, Atherosclerosis. 2014: 232(2):410-413. Performed By: #### 2 4331-1 ####[facility]ORATORYCLIA [id number] [place] [id number] [place] Cholesterol in VLDL [Mass/Vol] 18 mg/dL Normal <30 [facility] Comment on above: Order Comment: Speci men Type: BLOOD SPECIMENOrdering Facility: [facility] Address: [address] [place] [address] Performed By: #### 2 4331-1 ####[facility]ORATORYCLIA [id number] [place] [address] [place] Cholesterol non HDL [Mass/Vol] 142 mg/dL High <130 [facility] Comment on above: Order Comment: Speci men Type: BLOOD SPECIMENOrdering Facility: [facility] Address: [address] [place] [address] Result Comment: <130 mg/dL, Optimal 130-159 mg/dL, Near optimal/above optimal 160-189 mg/dL, Borderline high 190-219 mg/dL, High >219 mg/dL, Very high Secondary prevention optimal non HDL Cholesterol levels are recommended to be <100 mg/dL Performed By: #### 2 4331-1 ####[facility]ORATORYCLIA [id number] [place] [address] [place] Cholesterol.total/Chol esterol in HDL [Mass ratio] 2.89 {ratio} Normal <5.10 [facility] Comment on above: Order Comment: Speci men Type: BLOOD SPECIMENOrdering Facility: [facility] Address: [address] [place] [address] Performed By: #### 2 4331-1 ####[facility]ORATORYCLIA [id number] [place] [address] [place] FASTING TIME 8 hrs Normal [facility] Comment on above: Order Comment: Speci men Type: BLOOD SPECIMENOrdering Facility: [facility] Address: [address] [place] [address] Performed By: #### 2 4331-1 ####[facility]ORATORYCLIA [id number] [place] [address] [place] Triglyceride [Mass/Vol] 91 mg/dL Normal <150 [facility] Comment on above: Order Comment: Speci men Type: BLOOD SPECIMENOrdering Facility: [facility] Address: [address] [place] [address] Result Comment: <150 mg/dL, Normal 150-199 mg/dL, Borderline high 200-499 mg/dL, High >499 mg/dL, Very high Performed By: #### 2 4331-1 ####[facility] LABORATORYCLIA [id number] [place] [id number] [place] NURSING PROGon 06-07-2022 NURSING PROG HNO ID: [id number] Author: Teo López RN Service: Behavioral Health [...] MOM given for c/o of constipation. Pt [place], hearing aid on. Pt needs to be fed. Pt answer to every question is "I dont know". Visible tremors on assessment. 15 min safety checks maintained. Will monitor. [facility] NURSING PROG HNO ID: [id number] Author: Gilbert Watson RN Service: ? Author [...] her 0600 medication, remained cooperative with care. [facility] ALLIED HEALTHon 06-06-2022 ALLIED HEALTH HNO ID: [id number] Author: MYRON Talbot Service: Recreational Therapy Author [...] 06, 2022 TIME: 8:26 AM PAGER/CONTACT #: [facility] ALLIED HEALTH HNO ID: [id number] Author: MYRON Talbot Service: Recreational Therapy Author [...] 06, 2022 TIME: 8:20 AM PAGER/CONTACT #: [facility] H[facility] ID: [id number] Author: LATRICE Munoz Service: Social Work Author Type: Restoration Silversmith Type: Care Mgt Initial Assessment Filed: 06/06/2022 12:23 PM Note Text: BEHAVIORAL HEALTH SOCIAL WORK/CARE MANAGEMENT ASSESSMENT AND DISCHARGE PLAN SERVICE DATE: 06/06/2022 SERVICE TIME: 11:00 am Reason for Admission: Per intake: "Chay Teague is a 77 year old female brought in to [place] ED from Home by family for confusion. [...] not steal the car back for her. Ssds Mk 2 Advanced Operator attempted interview with pt telephonically. It [...] information obtained from pt's daughter, Jennifer Hidalgo ([phone]). Daughter reports that pt has underlying dementia, [...] with pt being on the waitlist at [facility]." Legal Status: Involuntary - Medical Certificate and awaiting POA consent Important Contacts: Primary Contact Name: Jennifer Hidalgo / Relationship: Daughter / / Does the patient/community health representative consent to contact with the above [...] Chay Teague was born and raised in [place], [place] by her biological parents. Her childhood [...] Needs: Not on file Health Insurance: PRIMARY: [employer] [facility]OND[facility] Status (including history of combat experience): None Legal History: Patient/Manager Commodities Denies Taoist/Spirituality: Voodoo PSYCHIATRIC HISTORY: None Violence Risk to Self: In the past 6 months have you had thoughts of killing yourself or suicidal ideations? No In the past 6 months, have you made plans/preparations and/or had an intent to act upon these suicidal ideas/thoughts? No Has Patient Been Hospitalized Previously for Psychiatric Reasons? No, Patient/Manager Commodities denies Substance Use and Treatment History: Patient/Manager Commodities Denies Lab Results Negative for Tested Substances Do special considerations/accommodat ions need to be made (i.e. preferred language, literacy, gender identity, physical disability such as deaf or blind, etc)? No, Patient/Manager Commodities Denies Are there practices or beliefs that may affect or influence treatment? No, Patient/Manager Commodities Denies Patient Strengths/Protective Factors (Minimum of Two): Sobriety Stable Housing Stabl (more content not included)... Normal [facility] CONSULTon 06-06-2022 CONSULT HNO ID: [id number] Author: Beba Bray MD Service: ? Author [...] Medical clearance , Pt was transferred to [facility] for further psychiatric treatment. Consultation was [...] No history of dysuria, frequency or incontinence OUTDOOR ADVENTURE INSTRUCTOR: Negative for abnormal vaginal, bleeding, abnormal vaginal [...] are normal.Teeth and (more content not included)... [facility] ED NOTEon 06-06-2022 ED NOTE HNO ID: [id number] Author: Zaid Cuello RN Service: ? Author Type: Registered Nurse Type: ED Notes Filed: 06/06/2022 3:47 AM Note Text: SBAR report to [facility] transport team, patient care handed off without incident. [facility] ED NOTE HNO ID: [id number] Author: Liz Perry RN Service: ? Author Type: Registered Nurse Type: ED Notes Filed: 06/06/2022 2:37 AM Note Text: Pt report called to [facility] with RN. [facility] ED NOTE HNO ID: [id number] Author: Liz Perry RN Service: ? Author Type: Registered Nurse Type: ED Notes Filed: 06/06/2022 12:48 AM Note Text: Intake on the phone with RN about admission. [facility] ED NOTE HNO ID: [id number] Author: Liz Perry RN Service: ? Author Type: Registered Nurse Type: ED Notes Filed: 06/06/2022 12:49 AM Note Text: Pt is still attempting to get out of bed and is restless, MD made aware and medications ordered, [facility] ED NOTE HNO ID: [id number] Author: Liz Perry RN Service: ? Author Type: Registered Nurse Type: ED Notes Filed: 06/06/2022 12:22 AM Note Text: Intake attempted to interview pt. [facility] ED NOTE HNO ID: [id number] Author: Liz Perry RN Service: ? Author Type: Registered Nurse Type: ED Notes Filed: 06/05/2022 10:59 PM Note Text: Intake on the phone with MD [facility] ED NOTE HNO ID: [id number] Author: Liz Perry RN Service: ? Author Type: Registered Nurse Type: ED Notes Filed: 06/05/2022 10:46 PM Note Text: Pts daughter on the phone with intake [facility] ED NOTE HNO ID: [id number] Author: Liz Perry RN Service: ? Author Type: Registered Nurse Type: ED Notes Filed: 06/05/2022 10:02 PM Note Text: Pt is sleeping in bed with call light in reach. Equal chest rise and fall noted with regular respirations. Bed is locked and in the lowest position. No acute distress noted. Safety maintained. Will continue to monitor. Normal [facility] ED PROV NOTEon 06-06-2022 ED PROV NOTE HNO ID: [id number] Author: Mendez Arellano MD Service: Emergency Medicine Author Type: Physician Type: ED Provider Notes Filed: 06/06/2022 4:14 AM Note Text: ED CONTINUATION OF CARE NOTE Code Status: Full Code Assumed care from: Dr Taylor Presentation / Findings / Interventions / Plan / Items to Follow Up: Patient signed out pending admission to geriatric at [facility]. Central intake arrange for patient to be admitted to [facility] geriatric psych and is accepting. ED Course as of 06/06/22413 Others' Documentation FriJun 05, 20222047 ECG Complete W Interpretation ED EKG INTERPRETATION: Normal sinus rhythm at 95 beats per minute Left axis deviation Incomplete right bundle branch block. LVH Nonspecific ST-T changes. No acute injury pattern. Interpretation by ED physician [BT] ED Course User Index [BT] Riccarod Taylor DO Clinical Impressions as of 06/06/22413 Confusion Dementia with behavioral disturbance, unspecified dementia type (HCC) Acute cystitis without hematuria SIGNATURE: Mendez Arellano MD PATIENT NAME: Chay Teague DATE: June 06, 2022 TIME: 1:28 AM PAGER/CONTACT #: Mendez Arellano MD 06/06/22413 [facility] HISTORY PHYSICALon HISTORY PHYSICAL HNO ID: [id number] Author: John Penny MD Service: Psychiatry Author Type: Physician Type: HANDP Filed: 06/07/2022 5:42 AM Note Text: [facility] Behavioral Health Admit Note ORIGINATOR: John Penny MD CHAY TEAGUE ACCTNUM: [id number] SERVICE: PSYR LOCATION: -[phone] ATTENDING PHYSICIAN: JOHN PENNY DATE OF SERVICE: 06/06/2022 IDENTIFYING INFORMATION: The patient is a 77-year-old female. HISTORY OF PRESENT ILLNESS: Patient was admitted to [facility] after she appeared to [facility] for wandering behavior; behavioral disturbances; was found to suffer UTI, received IV Rocephin. Patient brought in from home by family for confusion, suffered frontal lobe dementia and multiple medical problems, countdown to suffer UTI. Daughter brought the patient to the ED. Daughter is power of immigration attorney after she contacted by the local [...] she is on a waiting list for [facility]. PAST PSYCHIATRIC HISTORY: Patient has extensive history [...] home. Daughter is supportive and power of immigration attorney. She has a home health aide. [...] Date Value 06/05/2022 (more content not included)... [facility] NURSING PROGon 06-06-2022 NURSING PROG HNO ID: [id number] Author: Manda Proctor RN Service: Nursing Author [...] Poor appetite- refused to eat all meals. [facility] NURSING PROG HNO ID: [id number] Author: Wesley Espinal RN Service: Nursing Author Type: Registered Nurse Type: Nursing Progress Note Filed: 06/06/2022 5:24 AM Note Text: Transfer note: Patient brought onto the unit in stable condition via EMS from [facility]. Patient is tearful and yelling upon assessment. [...] 77 year old female brought in to [facility] from Home by family for confusion. [...] not steal the car back for her. Ssds Mk 2 Advanced Operator attempted interview with pt telephonically. It [...] information obtained from pt's daughter, Jennifer Hidalgo ([phone]). Daughter reports that pt has underlying dementia, [...] with pt being on the waitlist at [facility]. [facility] NURSING PROG HNO ID: [id number] Author: Zelda Serrano RN Service: Behavioral Health [...] 06/09/22 Progress Towards Short Term Goals: Progressing Hadoop Software Engineer Goals: Patient will have achieved optimal level of functioning;Patient will verbalize benefits of compliance with medication and treatment after discharge;Patient will participate in cognitive, physical and social activities Target Date Hadoop Software Engineer Goals: 06/13/22 Progress Towards Hadoop Software Engineer Goals: Progressing Interventions - Nursing: Offer frequent [...] DATE: June 06, 2022 TIME: 5:12 AM [facility] THERAPY NTon 06-06-2022 THERAPY NT HNO ID: [id number] Author: Shellie Saavedra OT/L Service: Occupational Therapy Author Type: Occupational Therapist Type: Therapy (PT/OT/Speech/Resp) Filed: 06/07/2022 9:56 AM Note Text: Occupational Therapy Evaluation SERVICE DATE: 06/06/2022 SERVICE TIME: 1330 to 1355 ROOM: [place] [address] Recommended Discharge Disposition: Home OT Anticipated Discharge [...] family checks in at night. Assistance Available: multimedia teacher Prior Functional Level: Required Assistance Assistance Required [...] Provided: Evaluation;Self [facility] Management ([id number]) $ Evaluation-Low (54356) Billed Units: 1 unit Self [facility] (34762) Treatment Minutes: 10 $ Self [facility] (96250) Billed Units: 1 unit Timed Code Treatment (minutes): 10 Skilled Treatment Time (minutes): 25 Please see discipline specific clinical documentation flowsheet for complete details for this therapy evaluation/treatment. SIGNATURE: Shellie Saavedra OT/Sheldon PATIENT NAME: Chay Teague DATE: June 06, 2022 TIME: 1:30 PM [facility] THERAPY NT HNO ID: [id number] Author: Bonnie Nuñez PT Service: Physical Therapy Author Type: Physical Therapist Type: Therapy (PT/OT/Speech/Resp) Filed: 06/06/2022 8:41 AM Note Text: Physical Therapy Evaluation SERVICE DATE: 06/06/2022 SERVICE TIME: 809 to 819 ROOM: [place] [address] Recommended Discharge Disposition: Home PT Recommended Discharge [...] family checks in at night. Assistance Available: multimedia teacher Prior Functional Level: Required Assistance Assistance Required [...] on feet Interventions Provided: Evaluation $ Evaluation-Low (99473) Billed Units: 1 unit Training AND education [...] DATE: June 06, 2022 TIME: 8:40 AM [facility] 06-05-2022 ALLIED HEALTH HNO ID: [id number] Author: RT Sabrina(R) Service: Radiology Author Type: [...] RT Sabrina(R) June 05, 2022 8:12 PM [facility] ALLIED HEALTH HNO ID: [id number] Author: JESSIE Duke Service: Radiology Author Type: [...] JESSIE Duke June 05, 2022 7:52 PM [facility] Bacteria Ur Culton 2 Bacteria identified Cx Nom (U) [id number] Abnormal [facility] Comment on above: Order Comment: Speci men Type: URINE SPECIMENOrdering Facility: [facility] Address: [address] [place] [address] Result Comment: <10, 000 CFU/ml Mixed microbiota No further workup. Mixed microbiota can be due to???urine???contamination with skin bacteria at time of collection or presence of a long-term urinary catheter. If a new culture is needed, please consider re-education of the patient on proper midstream collection technique or straight catheterization for???urine???collection. Performed By: #### 6 30-4 ####[facility] LABCLIA [id number] [facility] [id number] [place] [address] [place] CBC W Auto Differential pane l (Bld)on 06-05-2022 Basophils (Bld) [#/Vol] 0.07 10*3/uL Normal <0.11 [facility] Comment on above: Order Comment: Speci men Type: BLOOD SPECIMENOrdering Facility: [facility] Address: [address] [place] [address] Performed By: #### 5 7021-8 ####[facility]ATORYCLIA [id number] [place] [address] [place] Basophils/100 WBC (Bld) 0.8 % Normal [facility] Comment on above: Order Comment: Speci men Type: BLOOD SPECIMENOrdering Facility: [facility] Address: [address] [place] [address] Performed By: #### 5 7021-8 ####[facility]ATORYCLIA [id number] [place] [address] [place] Differential cell count method Nom (Bld) Auto Normal [facility] Comment on above: Order Comment: Speci men Type: BLOOD SPECIMENOrdering Facility: [facility] Address: [address] [place] [address] Performed By: #### 5 7021-8 ####[facility]ATORYCLIA [id number] [place] [address] [place] Eosinophils (Bld) [#/Vol] 0.34 10*3/uL Normal <0.46 [facility] Comment on above: Order Comment: Speci men Type: BLOOD SPECIMENOrdering Facility: [facility] Address: [address] [place] [address] Performed By: #### 5 7021-8 ####[facility]ATORYCLIA [id number] [address] [place] Eosinophils/100 WBC (Bld) 4.0 % Normal [facility] Comment on above: Order Comment: Speci men Type: BLOOD SPECIMENOrdering Facility: [facility] Address: [address] [place] [address] Performed By: #### 5 7021-8 ####[facility]ATORYCLIA [id number] [address] Erythrocyte distribution width (RBC) [Ratio] 14.5 % Normal 11.5-15.0 [facility] Comment on above: Order Comment: Speci men Type: BLOOD SPECIMENOrdering Facility: [facility] Address: [address] [place] [address] Performed By: #### 5 7021-8 ####[facility]ATORYCLIA [id number] [address] [place] Hematocrit (Bld) [Volume fraction] 41.2 % Normal 36.0-46.0 [facility] Comment on above: Order Comment: Speci men Type: BLOOD SPECIMENOrdering Facility: [facility] Address: [address] [place] [address] Performed By: #### 5 7021-8 ####[facility]ATORYCLIA [id number] [address] Hemoglobin (Bld) [Mass/Vol] 13.6 g/dL Normal 11.5-15.5 [facility] Comment on above: Order Comment: Speci men Type: BLOOD SPECIMENOrdering Facility: [facility] Address: [address] [place] [address] Performed By: #### 5 7021-8 ####[facility]ORYCLIA [id number] [address] IMMATURE GRAN % 0.5 % Normal [facility] Comment on above: Order Comment: Speci men Type: BLOOD SPECIMENOrdering Facility: [facility] Address: [address] [place] [address] Performed By: #### 5 7021-8 ####[facility]ORYCLIA [id number] [address] IMMATURE GRAN ABS 0.04 k/uL Normal <0.10 [facility] Comment on above: Order Comment: Speci men Type: BLOOD SPECIMENOrdering Facility: [facility] Address: [address] [place] [address] Performed By: #### 5 7021-8 ####[facility]ORYCLIA [id number] [address] [place] Lymphocytes (Bld) [#/Vol] 2.31 10*3/uL Normal 1.00-4.00 [facility] Comment on above: Order Comment: Speci men Type: BLOOD SPECIMENOrdering Facility: [facility] Address: [address] [place] [address] Performed By: #### 5 7021-8 ####[facility]ORYCLIA [id number] [address] Lymphocytes/100 WBC (Bld) 27.0 % Normal [facility] Comment on above: Order Comment: Speci men Type: BLOOD SPECIMENOrdering Facility: [facility] Address: [address] [place] [address] Performed By: #### 5 7021-8 ####[facility]ATORYCLIA [id number] [address] STATES [facility] MCH (RBC) [Entitic mass] 30.7 pg Normal 26.0-34.0 [facility] Comment on above: Order Comment: Speci men Type: BLOOD SPECIMENOrdering Facility: [facility] Address: [address] [place] [address] Performed By: #### 5 7021-8 ####[facility]ATORYCLIA [id number] [address] STATES [facility] MCHC (RBC) [Mass/Vol] 33.0 g/dL Normal 30.5-36.0 [facility] Comment on above: Order Comment: Speci men Type: BLOOD SPECIMENOrdering Facility: [facility] Address: [address] [place] [address] Performed By: #### 5 7021-8 ####[facility]ATORYCLIA [id number] [address] MCV (RBC) [Entitic vol] 93.0 fL Normal 80.0-100.0 [facility] Comment on above: Order Comment: Speci men Type: BLOOD SPECIMENOrdering Facility: [facility] Address: [address] [place] [address] Performed By: #### 5 7021-8 ####[facility]ATORYCLIA [id number] [place] [address] [place] Monocytes (Bld) [#/Vol] 0.75 10*3/uL Normal <0.87 [facility] Comment on above: Order Comment: Speci men Type: BLOOD SPECIMENOrdering Facility: [facility] Address: [address] [place] [address] Performed By: #### 5 7021-8 ####[facility]ATORYCLIA [id number] [place] [address] [place] Monocytes/100 WBC (Bld) 8.8 % Normal [facility] Comment on above: Order Comment: Speci men Type: BLOOD SPECIMENOrdering Facility: [facility] Address: [address] [place] [address] Performed By: #### 5 7021-8 ####[facility]ATORYCLIA [id number] [place] [address] [place] Neutrophils (Bld) [#/Vol] 5.04 10*3/uL Normal 1.45-7.50 [facility] Comment on above: Order Comment: Speci men Type: BLOOD SPECIMENOrdering Facility: [facility] Address: [address] [place] [address] Performed By: #### 5 7021-8 ####[facility]ATORYCLIA [id number] [address] [place] Neutrophils/100 WBC (Bld) 58.9 % Normal [facility] Comment on above: Order Comment: Speci men Type: BLOOD SPECIMENOrdering Facility: [facility] Address: [address] [place] [address] Performed By: #### 5 7021-8 ####[facility]ATORYCLIA [id number] [place] [address] [place] Nucleated RBC (Bld) [#/Vol] 10*3/uL Normal <0.01 [facility] Comment on above: Order Comment: Speci men Type: BLOOD SPECIMENOrdering Facility: [facility] Address: [address] [place], [place] [address] Performed By: #### 5 7021-8 ####[facility]ATORYCLIA [id number] [place] [address] [place] Nucleated RBC/100 WBC (Bld) [Ratio] 0.0 /100 WBC Normal [facility] Comment on above: Order Comment: Speci men Type: BLOOD SPECIMENOrdering Facility: [facility] Address: [address] [place] [address] Performed By: #### 5 7021-8 ####[facility]ATORYCLIA [id number] [place] [address] [place] Platelet mean volume (Bld) [Entitic vol] 10.1 fL Normal 9.0-12.7 [facility] Comment on above: Order Comment: Speci men Type: BLOOD SPECIMENOrdering Facility: [facility] Address: [address] [place] [address] Performed By: #### 5 7021-8 ####[facility]ATORYCLIA [id number] [place] [address] [place] Platelets (Bld) [#/Vol] 283 10*3/uL Normal 150-400 [facility] Comment on above: Order Comment: Speci men Type: BLOOD SPECIMENOrdering Facility: [facility] Address: [address] [place] [address] Performed By: #### 5 7021-8 ####[facility]ORYCLIA [id number] [place] [address] [place] RBC (Bld) [#/Vol] 4.43 10*6/uL Normal 3.90-5.20 [facility] Comment on above: Order Comment: Speci men Type: BLOOD SPECIMENOrdering Facility: [facility] Address: [address] [place] [address] Performed By: #### 5 7021-8 ####[facility]ORYCLIA [id number] [address] [place] WBC (Bld) [#/Vol] 8.55 10*3/uL Normal 3.70-11.00 [facility] Comment on above: Order Comment: Speci men Type: BLOOD SPECIMENOrdering Facility: [facility] Address: [facility] [place] [address] Performed By: #### 5 7021-8 ####[facility]ORATORYCLIA [id number] [place] [address] [place] BRAIN WO IVCONon 06-05-[address] BRAIN WO IVCON * * *Final Report* * * DATE OF EXAM: Jun 05 2022 8:06PM [facility] 0504 - CT BRAIN WO IVCON / [...] base and imaged soft tissues are unremarkable. Hoop Machine Operator (topogram) images: Unremarkable. IMPRESSION: NO EVIDENCE OF AN ACUTE INTRACRANIAL PROCESS Cullet Washer: PSCB Transcribe Date/Time: Jun 05 2022 8:12P Dictated by : ALICE MARINA MD This examination was interpreted and the report reviewed and electronically signed by: ALICE MARINA MD on Jun 05 2022 8:13PM EST [id number] Normal [facility] Comprehensive metabolic 2000 panelon 06-05-2022 Albumin [Mass/Vol] 4.0 g/dL Normal 3.9-4.9 [facility] Comment on above: Order Comment: Speci men Type: BLOOD SPECIMENOrdering Facility: [facility] Address: [address] [place] [address] Performed By: #### 2 4323-8, 3016-3 ####[facility]ORATORYCLIA [id number] [place] [address] [place] ALP [Catalytic activity/Vol] 92 U/L Normal 34-123 [facility] Comment on above: Order Comment: Speci men Type: BLOOD SPECIMENOrdering Facility: [facility] Address: [address] [place] [address] Performed By: #### 2 4323-8, 6-3 ####[facility]ATORYCLIA [id number] [address] [place] ALT [Catalytic activity/Vol] 14 U/L Normal 7-38 [facility] Comment on above: Order Comment: Speci men Type: BLOOD SPECIMENOrdering Facility: [facility] Address: [address] [place] [address] Performed By: #### 2 4323-8, 3016-3 ####[facility]ORATORYCLIA [id number] [place] [address] [place] Anion gap [Moles/Vol] 9 mmol/L Normal 9-18 [facility] Comment on above: Order Comment: Speci men Type: BLOOD SPECIMENOrdering Facility: [facility] Address: [address] Performed By: #### 2 4323-8, 3016-3 ####[facility]ATORYCLIA [id number] [address] [place] AST [Catalytic activity/Vol] 22 U/L Normal 13-35 [facility] Comment on above: Order Comment: Speci men Type: BLOOD SPECIMENOrdering Facility: [facility] Address: [address] [place] [address] Performed By: #### 2 4323-8, 3016-3 ####[facility]ATORYCLIA [id number] [address] STATES OF [facility] Bilirubin [Mass/Vol] 0.5 mg/dL Normal 0.2-1.3 [facility] Comment on above: Order Comment: Speci men Type: BLOOD SPECIMENOrdering Facility: [facility] Address: [address] [place] [address] Performed By: #### 2 4323-8, 3016-3 ####[facility]ORYCLIA [id number] [address] [place] Calcium [Mass/Vol] 9.5 mg/dL Normal 8.5-10.2 [facility] Comment on above: Order Comment: Speci men Type: BLOOD SPECIMENOrdering Facility: [facility] Address: [address] [place] [address] Performed By: #### 2 4323-8, 3016-3 ####[facility]ATORYCLIA [id number] [address] [place] Chloride [Moles/Vol] 107 mmol/L High 97-105 [facility] Comment on above: Order Comment: Speci men Type: BLOOD SPECIMENOrdering Facility: [facility] Address: [address] [place] [address] Performed By: #### 2 4323-8, 3016-3 ####[facility]ATORYCLIA [id number] [address] [place] CO2 [Moles/Vol] 27 mmol/L Normal 22-30 [facility] Comment on above: Order Comment: Speci men Type: BLOOD SPECIMENOrdering Facility: [facility] Address: [address] [place] [address] Performed By: #### 2 4323-8, 3016-3 ####[facility]ATORYCLIA [id number] [address] [place] Creatinine [Mass/Vol] 0.84 mg/dL Normal 0.58-0.96 [facility] Comment on above: Order Comment: Speci men Type: BLOOD SPECIMENOrdering Facility: [facility] Address: [address] [place] [address] Performed By: #### 2 4323-8, 3015-3 ####[facility]ATORYCLIA [id number] [place] [address] [place] ESTIMATED GLOMERULAR FILTRATION RATE 71 mL/min/1.73m??? Normal >=60 [facility] Comment on above: Order Comment: Bisi naranjo Type: BLOOD SPECIMENOrdering Facility: [facility] Address: [address] [place] [address] Result Comment: Farheen mated Glomerular Filtration Rate [...] actual GFR. Performed By: #### 2 4323-8, 3015-3 ####[facility]ATORYCLIA [id number] [place] [address] [place] Glucose [Mass/Vol] 91 mg/dL Normal 74-99 [facility] Comment on above: Order Comment: Bisi naranjo Type: BLOOD SPECIMENOrdering Facility: [facility] Address: [address] [place] [address] Result Comment: The [place] [employer] Association (ADA) provides guidance for cutoff [...] Standards of Medical Care in Diabetes 2016, [place] [employer]. Diabetes Care. 2016.39(Suppl 1). Performed By: #### 2 4323-8, 3015-3 ####[facility]ATORYCLIA [id number] [place] [address] [place] Potassium [Moles/Vol] 3.8 mmol/L Normal 3.7-5.1 [facility] Comment on above: Order Comment: Speci men Type: BLOOD SPECIMENOrdering Facility: [facility] Address: [address] [place] [address] Performed By: #### 2 4323-8, 3016-3 ####[facility]ATORYCLIA [id number] [address] Protein [Mass/Vol] 6.9 g/dL Normal 6.3-8.0 [facility] Comment on above: Order Comment: Speci men Type: BLOOD SPECIMENOrdering Facility: [facility] Address: [address] [place] [address] Performed By: #### 2 4323-8, 3015-3 ####[facility]ATORYCLIA [id number] [address] Sodium [Moles/Vol] 143 mmol/L Normal 136-144 [facility] Comment on above: Order Comment: Speci men Type: BLOOD SPECIMENOrdering Facility: [facility] Address: [address] [place] [place] [address] Performed By: #### 2 4323-8, 3015-3 ####[facility]ATORYCLIA [id number] [address] Urea nitrogen [Mass/Vol] 28 mg/dL High 7-21 [facility] Comment on above: Order Comment: Speci men Type: BLOOD SPECIMENOrdering Facility: [facility] Address: [address] [place] [address] Performed By: #### 2 4323-8, 6-3 ####[facility]ATORYCLIA [id number] [address] [place] ECG COMPLETEon 06-05-2022 ECG COMPLETE Ventricular Rate : 9 5 BPM Atrial Rate : 95 BPM P-R Interval : 172 ms QRS Duration : 114 ms Q-T Interval : 388 ms QTC Calculation(Bazett) : 487 ms Calculated P [place] : 42 degrees Calculated R [place] : -32 degrees Calculated T [place] : 32 degrees NORMAL SINUS RHYTHM WITH SINUS ARRHYTHMIA LEFT AXIS DEVIATION INCOMPLETE RIGHT BUNDLE BRANCH BLOCK MINIMAL VOLTAGE CRITERIA FOR LVH, MAY BE NORMAL VARIANT INFERIOR INFARCT , AGE UNDETERMINED T WAVE ABNORMALITY, CONSIDER ANTERIOR ISCHEMIA ABNORMAL ECG no STEMI 2036 Confirmed by MD TAYLOR BENJAMIN ([id number]), commissioning editor CARON DIAZ ([id number]) on 06/06/2022 6:59:18 AM NAME : CHAY TEAGUE PID : [id number] : 1945 Gender : Female Race : Unknown ORD : [id number] Procedure Date : Jun 05 2022 20:37:48 Edit Date : Jun 06 2022 06:59:23 Diagnosis: NORMAL SINUS RHYTHM WITH SINUS ARRHYTHMIA LEFT AXIS DEVIATION INCOMPLETE RIGHT BUNDLE BRANCH BLOCK MINIMAL VOLTAGE CRITERIA FOR LVH, MAY BE NORMAL VARIANT INFERIOR INFARCT , AGE UNDETERMINED T WAVE ABNORMALITY, CONSIDER ANTERIOR ISCHEMIA ABNORMAL ECG no STEMI 2036 Confirmed by MD TAYLOR BENJAMIN ([id number]), commissioning editor CARON DIAZ ([id number]) on 06/06/2022 6:59:18 AM Test Reason : Arrhythmia Location : 1 : ER ED Overread By : MD TAYLOR BENJAMIN Edited By : CARON DIAZ Referred By : , Acquired by : [place], [facility] ED NOTEon 06-05-2022 ED NOTE HNO ID: [id number] Author: Jame Leavitt RN Service: Nursing Author [...] self in triage. Denies SOB and CP. [facility] ED PROV NOTEon 06-05-2022 ED PROV NOTE HNO ID: [id number] Author: iRccardo Taylor DO Service: Emergency Medicine Author Type: [...] cystitis without hematuria COVID-19 test performed per [facility] [place] policy for suspected COVID community exposure. MDM [...] who will discuss the case with psychiatry valuation consultant. 23:48 - Now intermittently agitated trying to get out of bed. QTc normal. Haldol 2 mg IV ordered. ED ATTENDING SIGN OUT NOTE Code Status: Full Code Presentation / Findings / Interventions / Plan / Items (more content not included)... Normal [facility] Ethanol [Mass/Vol] mg/dL Normal <11 [facility] Comment on above: Order Comment: Speci men Type: BLOOD SPECIMENOrdering Facility: [facility] Address: [address] [place] [address] Performed By: #### 5 643-2 ####[facility] LABORATORYCLIA [id number] [address] [place] SARS-CoV-2 RNA Resp Ql TATI+p silviaeon 06-05-2022 SARS-CoV-2 (COVID-19) RNA TATI+probe Ql (Resp) SARS-CoV-2 (Agent of COVID-19) Not Detected by RT-PCR or equivalent method. Normal Not Detected [facility] Comment on above: Order Comment: Speci men Type: SWAB OF INTERNAL NOSEOrdering Facility: [facility] Address: [address] [place] [address] Result Comment: This test has been authorized by FDA under an Emergency Use Authorization (EUA). Performed By: #### 9 4500-6 ####[facility] LABORATORYCLIA [id number] [address] TOX SCREEN ROUT URon 022 Amphetamines Confirm (U) [Mass/Vol] Negative Normal Negative [facility] Comment on above: Order Comment: Speci men Type: URINE SPECIMENOrdering Facility: [facility] Address: [address] [place] [address] Result Comment: Cuto ff threshold at 1000 ng/mL. Performed By: #### U TOX2 ####[facility] LABORATORYCLIA [id number] [address] BARBITURATES, URINE Negative Normal Negative [facility] Comment on above: Order Comment: Speci men Type: URINE SPECIMENOrdering Facility: [facility] Address: [address] [place] [address] Result Comment: Cuto ff threshold at 200 ng/mL. Performed By: #### U TOX2 ####[facility] LABORATORYCLIA [id number] [address] [place] BENZODIAZEPINES, UR Negative Normal Negative [facility] Comment on above: Order Comment: Speci men Type: URINE SPECIMENOrdering Facility: [facility] Address: [address] [place] [address] Result Comment: Cuto ff threshold at 200 ng/mL. Performed By: #### U TOX2 ####LE[facility] LABORATORYCLIA [id number] [place] [address] [place] CANNABINOIDS,URINE Negative Normal Negative [facility] Comment on above: Order Comment: Speci men Type: URINE SPECIMENOrdering Facility: [facility] Address: [address] [place] [address] Result Comment: Cuto ff threshold at 50 ng/mL. Performed By: #### U TOX2 ####LEUNG LABORATORYCLIA [id number] [place] [address] [place] Cocaine Ql (U) Negative Normal Negative [facility] Comment on above: Order Comment: Speci men Type: URINE SPECIMENOrdering Facility: [facility] Address: [address] [place] [address] Result Comment: Cuto ff threshold at 300 ng/mL. Performed By: #### U TOX2 ####LEUNG LABORATORYCLIA [id number] [place] [address] [place] Ethanol (U) [Mass/Vol] <11 Normal <11 [facility] Comment on above: Order Comment: Speci men Type: URINE SPECIMENOrdering Facility: [facility] Address: [address] [place] [address] Performed By: #### U TOX2 ####LEUN[facility] LABORATORYCLIA [id number] [address] [place] Opiates Screen Ql (U) Negative Normal Negative [facility] Comment on above: Order Comment: Speci men Type: URINE SPECIMENOrdering Facility: [facility] Address: [address] [place] [address] Result Comment: Cuto ff threshold at 300 ng/mL. Performed By: #### U TOX2 ####LEUNG LABORATORYCLIA [id number] [address] [place] oxyCODONE cutoff Screen (U) [Mass/Vol] Negative Normal Negative [facility] Comment on above: Order Comment: Speci men Type: URINE SPECIMENOrdering Facility: [facility] Address: [address] [place] [address] Result Comment: Cuto ff threshold at 100 ng/mL. Performed By: #### U TOX2 ####LEUNG LABORATORYCLIA [id number] [address] STATES [facility] Phencyclidine Ql (U) Negative Normal Negative [facility] Comment on above: Order Comment: Speci men Type: URINE SPECIMENOrdering Facility: [facility] Address: [address] [place] [address] Result Comment: Cuto ff threshold at 25 ng/mL. Performed By: #### U TOX2 ####LEUNG LABORATORYCLIA [id number] [place] [address] [place] TSH SerPl-aCncon 06-05-2022 TSH Qn 4.220 m[IU]/L High 0.270-4.200 [facility] Comment on above: Order Comment: Speci men Type: BLOOD SPECIMENOrdering Facility: [facility] Address: [address] [place] [address] Performed By: #### 2 4323-8, 3016-3 ####LE[facility] LABORATORYCLIA [id number] [address] [place] URINALYSIS, REFLEX MICROSCOP ICon 06-05-2022 Bacteria LM.HPF (Urine sed) [#/Area] Moderate Abnormal None Seen [facility] Comment on above: Order Comment: Speci men Type: URINE SPECIMENOrdering Facility: [facility] Address: [address] [place] [address] Performed By: #### L [id number] ####LE[facility] LABORATORYCLIA [id number] [address] [place] Bilirubin Ql (U) Negative Normal Negative [facility] Comment on above: Order Comment: Speci men Type: URINE SPECIMENOrdering Facility: [facility] Address: [address] [place] [address] Performed By: #### L [id number] ####LEUN[facility] LABORATORYCLIA [id number] [address] [place] Clarity (Unsp spec) Slightly Cloudy Abnormal Clear [facility] Comment on above: Order Comment: Speci men Type: URINE SPECIMENOrdering Facility: [facility] Address: [address] [place] [address] Performed By: #### L [id number] ####LE[facility] LABORATORYCLIA [id number] [address] Color (U) Yellow Normal Yellow [facility] Comment on above: Order Comment: Speci men Type: URINE SPECIMENOrdering Facility: [facility] Address: [address] [place] [address] Performed By: #### L [id number] ####LE[facility] LABORATORYCLIA [id number] [address] Epithelial cells LM.HPF (Urine sed) [#/Area] Few Normal [facility] Comment on above: Order Comment: Speci men Type: URINE SPECIMENOrdering Facility: [facility] Address: [address] [place] [address] Result Comment: Few Performed By: #### L [id number] ####[facility] LABORATORYCLIA [id number] [address] Glucose Test strip (U) [Mass/Vol] Negative Normal Negative [facility] Comment on above: Order Comment: Speci men Type: URINE SPECIMENOrdering Facility: [facility] Address: [address] [place] [address] Performed By: #### L [id number] ####LE[facility] LABORATORYCLIA [id number] [address] Hemoglobin Ql (U) Trace Abnormal Negative [facility] Comment on above: Order Comment: Speci men Type: URINE SPECIMENOrdering Facility: [facility] Address: [address] [place] [address] Performed By: #### L [id number] ####LEUNG LABORATORYCLIA [id number] [address] Ketones Ql (U) Negative Normal Negative [facility] Comment on above: Order Comment: Speci men Type: URINE SPECIMENOrdering Facility: [facility] Address: [address] [place] [address] Performed By: #### L [id number] ####LEUN[facility] LABORATORYCLIA [id number] [address] Leukocyte esterase Test strip Ql (U) 2+ Abnormal Negative [facility] Comment on above: Order Comment: Speci men Type: URINE SPECIMENOrdering Facility: [facility] Address: [address] [place] [address] Performed By: #### L [id number] ####LE[facility] LABORATORYCLIA [id number] [address] [place] Nitrite Ql (U) Negative Normal Negative [facility] Comment on above: Order Comment: Speci men Type: URINE SPECIMENOrdering Facility: [facility] Address: [address] [place] [address] Performed By: #### L [id number] ####LEUN[facility] LABORATORYCLIA [id number] [address] [place] pH (U) 6.0 [pH] Normal 5.0-8.0 [facility] Comment on above: Order Comment: Speci men Type: URINE SPECIMENOrdering Facility: [facility] Address: [address] [place] [address] Performed By: #### L [id number] ####LEUN[facility] LABORATORYCLIA [id number] [address] Protein (U) [Mass/Vol] Negative Normal Negative [facility] Comment on above: Order Comment: Speci men Type: URINE SPECIMENOrdering Facility: [facility] Address: [address] [place] [address] Performed By: #### L [id number] ####LEUNG LABORATORYCLIA [id number] [address] [place] RBC LM.HPF (Urine sed) [#/Area] 0-3 /HPF Normal 0-3 /HPF [facility] Comment on above: Order Comment: Speci men Type: URINE SPECIMENOrdering Facility: [facility] Address: [address] [place] [address] Performed By: #### L [id number] ####LEUN[facility] LABORATORYCLIA [id number] [address] Specific gravity (U) [Rel density] 1.025 Normal 1.005-1.030 [facility] Comment on above: Order Comment: Speci men Type: URINE SPECIMENOrdering Facility: [facility] Address: [address] [place] [address] Performed By: #### L [id number] ####[facility] LABORATORYCLIA [id number] [address] Urobilinogen Ql (U) 0.2 EU/dL Normal 0.2-1.0 EU/dL [facility] Comment on above: Order Comment: Speci men Type: URINE SPECIMENOrdering Facility: [facility] Address: [address] [place] [address] Performed By: #### L [id number] ####[facility] LABORATORYCLIA [id number] [address] WBC LM.HPF (Urine sed) [#/Area] 11-25 /HPF Abnormal 0-5 /HPF [facility] Comment on above: Order Comment: Speci men Type: URINE SPECIMENOrdering Facility: [facility] Address: [address] [place] [address] Performed By: #### L [id number] ####[facility] LABORATORYCLIA [id number] [address] XR CHEST 1V FRONTAL PORTon 0 [...] limits Other: . IMPRESSION: No active disease Cullet Washer: PSCB Transcribe Date/Time: Jun 05 2022 8:14P Dictated by : ALICE MARINA MD This examination was interpreted and the report reviewed and electronically signed by: ALICE MARINA MD on Jun 05 2022 8:14PM EST [id number] [facility] Anti-Nuclear Antibodyon - CRESENCIO Titer < 1 : 80 Normal <1:80 [facility] Comment on above: Result Comment: Test ed by Indirect Immunofluorescence Assay (IFA). Performed By: #### A PTT, TSH5, HEMDF, LDH3, DDI2, BMP3M, ESR, FOLT3, URIC3, FEIBC, FERR3, B12, FT4M #### [facility] [address] [place] [address] #### HVAAO, ANA3, HEPAN, B2GPG, B2GPM, B2GPA #### [address] [address] #### LUPUS #### The performing lab is in the report. Lupus Anticoagulant Reflexiv e Panelon 11-12-2021 aPTT Coag (Bld) [Time] 118 s High 32-48 [facility] Comment on above: Performed By: #### A PTT, TSH5, HEMDF, LDH3, DDI2, BMP3M, ESR, FOLT3, URIC3, FEIBC, FERR3, B12, FT4M #### [facility] [employer] [facility] [address] [place] [address] #### HVAAO, ANA3, HEPAN, B2GPG, B2GPM, B2GPA #### [address] [address] #### LUPUS #### The performing lab is in the report. aPTT Coag (Bld) [Time] 42 s Normal 32-48 [facility] Comment on above: Performed By: #### A PTT, TSH5, HEMDF, LDH3, DDI2, BMP3M, ESR, FOLT3, URIC3, FEIBC, FERR3, B12, FT4M #### [facility] [address] [place] [facility] [place] [address] #### HVAAO, ANA3, HEPAN, B2GPG, B2GPM, B2GPA #### [address] #### LUPUS #### The performing lab is in the report. dRVVT 1:1 Mix Not Applicable Normal [facility] Comment on above: Performed By: #### A PTT, TSH5, HEMDF, LDH3, DDI2, BMP3M, ESR, FOLT3, URIC3, FEIBC, FERR3, B12, FT4M #### [facility] [address] [place], [place] #### HVAAO, ANA3, HEPAN, B2GPG, B2GPM, B2GPA #### [address] #### LUPUS #### The performing lab is in the report. dRVVT Confirmation Not Applicable Normal Negative [facility] Comment on above: Performed By: #### A PTT, TSH5, HEMDF, LDH3, DDI2, BMP3M, ESR, FOLT3, URIC3, FEIBC, FERR3, B12, FT4M #### [facility] [address] [place], [place] #### HVAAO, ANA3, HEPAN, B2GPG, B2GPM, B2GPA #### [address] #### LUPUS #### The performing lab is in the report. dRVVT Screen 29 sec Low [facility] Comment on above: Performed By: #### A PTT, TSH5, HEMDF, LDH3, DDI2, BMP3M, ESR, FOLT3, URIC3, FEIBC, FERR3, B12, FT4M #### [facility] [address] [place] [address] #### HVAAO, ANA3, HEPAN, B2GPG, B2GPM, B2GPA #### [address] #### LUPUS #### The performing lab is in the report. Hexagonal Phospholipid Neutral Reflex Not Applicable Normal Negative [facility] [employer] [facility] Comment on above: Performed By: #### A PTT, TSH5, HEMDF, LDH3, DDI2, BMP3M, ESR, FOLT3, URIC3, FEIBC, FERR3, B12, FT4M #### [facility] [address] [place] [address] #### HVAAO, ANA3, HEPAN, B2GPG, B2GPM, B2GPA #### [facility] [address] [place] [address] #### LUPUS #### The performing lab is in the report. Lupus Anticoagulant Interpretation See Note Normal [facility] Comment on above: Result Comment: Lupu s [...] developed and its performance characteristics determined by [facility]. It has not been cleared or approved by the [place] Food and Drug Administration. This test was performed in a CLIA certified laboratory and is intended for clinical purposes. Counseling and informed consent are recommended for genetic testing. Consent forms are available online. Performed by [facility], [address] [place] [id number] [email or web address], Sara Ji MD - Lab. Director Performed By: #### A PTT, TSH5, HEMDF, LDH3, DDI2, BMP3M, ESR, FOLT3, URIC3, FEIBC, FERR3, B12, FT4M #### [facility] [address] [place] [address] #### HVAAO, ANA3, HEPAN, B2GPG, B2GPM, B2GPA #### [address] #### LUPUS #### The performing lab is in the report. Platelet Neutralization (PTT-D, Confirm) Not Applicable Normal Negative [facility] Comment on above: Performed By: #### A PTT, TSH5, HEMDF, LDH3, DDI2, BMP3M, ESR, FOLT3, URIC3, FEIBC, FERR3, B12, FT4M #### [facility] [address] [place] [address] #### HVAAO, ANA3, HEPAN, B2GPG, B2GPM, B2GPA #### [address] #### LUPUS #### The performing lab is in the report. PT Coag (PPP) [Time] 13.4 s Normal 12.0-15.5 [facility] Comment on above: Performed By: #### A PTT, TSH5, HEMDF, LDH3, DDI2, BMP3M, ESR, FOLT3, URIC3, FEIBC, FERR3, B12, FT4M #### [facility] [address] [place] [address] #### HVAAO, ANA3, HEPAN, B2GPG, B2GPM, B2GPA #### [address] #### LUPUS #### The performing lab is in the report. PTT-D 1:1 Mix Not Applicable Normal 32-48 [facility] Comment on above: Performed By: #### A PTT, TSH5, HEMDF, LDH3, DDI2, BMP3M, ESR, FOLT3, URIC3, FEIBC, FERR3, B12, FT4M #### [facility] [address] [place] [address] #### HVAAO, ANA3, HEPAN, B2GPG, B2GPM, B2GPA #### [address] #### LUPUS #### The performing lab is in the report. Reptilase Time 16.5 sec Normal <=21.9 [facility] Comment on above: Performed By: #### A PTT, TSH5, HEMDF, LDH3, DDI2, BMP3M, ESR, FOLT3, URIC3, FEIBC, FERR3, B12, FT4M #### [facility] [address] [place] [address] #### HVAAO, ANA3, HEPAN, B2GPG, B2GPM, B2GPA #### [address] #### LUPUS #### The performing lab is in the report. Thrombin Time > 150.0 High 14.7-19.5 [facility] Comment on above: Performed By: #### A PTT, TSH5, HEMDF, LDH3, DDI2, BMP3M, ESR, FOLT3, URIC3, FEIBC, FERR3, B12, FT4M #### [facility] [address] [place] [address] #### HVAAO, ANA3, HEPAN, B2GPG, B2GPM, B2GPA #### [address] #### LUPUS #### The performing lab is in the report. Basic Metabolic Panelon 10-23 Anion gap [Moles/Vol] 4 mmol/L Normal 3-13 [facility] Comment on above: Performed By: #### A PTT, TSH5, HEMDF, LDH3, DDI2, BMP3M, ESR, FOLT3, URIC3, FEIBC, FERR3, B12, FT4M #### [facility] [address] [place] [address] #### HVAAO, ANA3, HEPAN, B2GPG, B2GPM, B2GPA #### [address] #### LUPUS #### The performing lab is in the report. Calcium [Mass/Vol] 9.0 mg/dL Normal 8.4-10.4 [facility] Comment on above: Performed By: #### A PTT, TSH5, HEMDF, LDH3, DDI2, BMP3M, ESR, FOLT3, URIC3, FEIBC, FERR3, B12, FT4M #### [place] [address] [place] [address] #### HVAAO, ANA3, HEPAN, B2GPG, B2GPM, B2GPA #### [address] #### LUPUS #### The performing lab is in the report. CO2 [Moles/Vol] 30 mmol/L Normal 22-30 [facility] Comment on above: Performed By: #### A PTT, TSH5, HEMDF, LDH3, DDI2, BMP3M, ESR, FOLT3, URIC3, FEIBC, FERR3, B12, FT4M #### [address] [place] #### HVAAO, ANA3, HEPAN, B2GPG, B2GPM, B2GPA #### [address] #### LUPUS #### The performing lab is in the report. Creatinine [Mass/Vol] 0.95 mg/dL Normal 0.52-1.25 [facility] Comment on above: Performed By: #### A PTT, TSH5, HEMDF, LDH3, DDI2, BMP3M, ESR, FOLT3, URIC3, FEIBC, FERR3, B12, FT4M #### [address] [place] [address] #### HVAAO, ANA3, HEPAN, B2GPG, B2GPM, B2GPA #### [address] #### LUPUS #### The performing lab is in the report. GFR/1.73 sq M.predicted among blacks MDRD (S/P/Bld) [Vol rate/Area] 66.2 mL/min/{1.73_m2} Normal >60 [facility] Comment on above: Performed By: #### A PTT, TSH5, HEMDF, LDH3, DDI2, BMP3M, ESR, FOLT3, URIC3, FEIBC, FERR3, B12, FT4M #### [facility] [address] [place] [address] #### HVAAO, ANA3, HEPAN, B2GPG, B2GPM, B2GPA #### [facility] [address] [place] [address] #### LUPUS #### The performing lab is in the report. GFR/1.73 sq M.predicted among non-blacks MDRD (S/P/Bld) [Vol rate/Area] 57.1 mL/min/{1.73_m2} Abnormal >60 [facility] Comment on above: Result Comment: KDIG [...] FEIBC, FERR3, B12, FT4M #### [facility] [address] [place] [address] #### HVAAO, ANA3, HEPAN, B2GPG, B2GPM, B2GPA #### [address] [address] #### LUPUS #### The performing lab is in the report. Glucose [Mass/Vol] 101 mg/dL High 70-100 [facility] Comment on above: Performed By: #### A PTT, TSH5, HEMDF, LDH3, DDI2, BMP3M, ESR, FOLT3, URIC3, FEIBC, FERR3, B12, FT4M #### [facility] [address] [place] [address] #### HVAAO, ANA3, HEPAN, B2GPG, B2GPM, B2GPA #### [address] #### LUPUS #### The performing lab is in the report. Urea nitrogen [Mass/Vol] 16 mg/dL Normal 9-20 [facility] Comment on above: Performed By: #### A PTT, TSH5, HEMDF, LDH3, DDI2, BMP3M, ESR, FOLT3, URIC3, FEIBC, FERR3, B12, FT4M #### [address] [place] [address] #### HVAAO, ANA3, HEPAN, B2GPG, B2GPM, B2GPA #### [address] #### LUPUS #### The performing lab is in the report. Chloride [Moles/Vol] 109 mmol/L High 98-107 [facility] Comment on above: Performed By: #### A PTT, TSH5, HEMDF, LDH3, DDI2, BMP3M, ESR, FOLT3, URIC3, FEIBC, FERR3, B12, FT4M #### [address] [place] [address] #### HVAAO, ANA3, HEPAN, B2GPG, B2GPM, B2GPA #### [address] #### LUPUS #### The performing lab is in the report. Potassium [Moles/Vol] 4.2 mmol/L Normal 3.5-5.1 [facility] Comment on above: Performed By: #### A PTT, TSH5, HEMDF, LDH3, DDI2, BMP3M, ESR, FOLT3, URIC3, FEIBC, FERR3, B12, FT4M #### [address] [place] #### HVAAO, ANA3, HEPAN, B2GPG, B2GPM, B2GPA #### [address] #### LUPUS #### The performing lab is in the report. Sodium [Moles/Vol] 142 mmol/L Normal 135-145 [facility] Comment on above: Performed By: #### A PTT, TSH5, HEMDF, LDH3, DDI2, BMP3M, ESR, FOLT3, URIC3, FEIBC, FERR3, B12, FT4M #### [address] [place] #### HVAAO, ANA3, HEPAN, B2GPG, B2GPM, B2GPA #### [address] #### LUPUS #### The performing lab is in the report. Hemogram w/ Autodiffon 11-10 Abs Baso Cnt 0.1 10*3/uL Normal 0.0-0.2 [facility] Comment on above: Performed By: #### A PTT, TSH5, HEMDF, LDH3, DDI2, BMP3M, ESR, FOLT3, URIC3, FEIBC, FERR3, B12, FT4M #### [address] [place] #### HVAAO, ANA3, HEPAN, B2GPG, B2GPM, B2GPA #### [address] #### LUPUS #### The performing lab is in the report. Abs Neutrophile Cnt 5.2 10*3/uL Normal 1.8-7.0 [facility] Comment on above: Performed By: #### A PTT, TSH5, HEMDF, LDH3, DDI2, BMP3M, ESR, FOLT3, URIC3, FEIBC, FERR3, B12, FT4M #### [address] [place] #### HVAAO, ANA3, HEPAN, B2GPG, B2GPM, B2GPA #### [address] [address] #### LUPUS #### The performing lab is in the report. Basophils/100 WBC (Bld) 0.7 % Normal 0.0-2.0 [facility] Comment on above: Performed By: #### A PTT, TSH5, HEMDF, LDH3, DDI2, BMP3M, ESR, FOLT3, URIC3, FEIBC, FERR3, B12, FT4M #### [facility] [address] [place] [address] #### HVAAO, ANA3, HEPAN, B2GPG, B2GPM, B2GPA #### [address] #### LUPUS #### The performing lab is in the report. Eosinophils (Bld) [#/Vol] 0.5 10*3/uL Normal 0.0-0.5 [facility] Comment on above: Performed By: #### A PTT, TSH5, HEMDF, LDH3, DDI2, BMP3M, ESR, FOLT3, URIC3, FEIBC, FERR3, B12, FT4M #### [address] [place] [address] #### HVAAO, ANA3, HEPAN, B2GPG, B2GPM, B2GPA #### [address] #### LUPUS #### The performing lab is in the report. Eosinophils/100 WBC (Bld) 5.8 % Normal 1.0-6.0 [facility] Comment on above: Performed By: #### A PTT, TSH5, HEMDF, LDH3, DDI2, BMP3M, ESR, FOLT3, URIC3, FEIBC, FERR3, B12, FT4M #### [address] [place] [address] #### HVAAO, ANA3, HEPAN, B2GPG, B2GPM, B2GPA #### [address] #### LUPUS #### The performing lab is in the report. Erythrocyte distribution width (RBC) [Ratio] 15.2 % High 11.5-14.5 [facility] Comment on above: Performed By: #### A PTT, TSH5, HEMDF, LDH3, DDI2, BMP3M, ESR, FOLT3, URIC3, FEIBC, FERR3, B12, FT4M #### [place] [address] [place] [address] #### HVAAO, ANA3, HEPAN, B2GPG, B2GPM, B2GPA #### [address] #### LUPUS #### The performing lab is in the report. Granulocytes/100 WBC (Bld) 64.6 % Normal 40.0-80.0 [facility] Comment on above: Performed By: #### A PTT, TSH5, HEMDF, LDH3, DDI2, BMP3M, ESR, FOLT3, URIC3, FEIBC, FERR3, B12, FT4M #### [place] [address] VIVIANA Hodge [place] #### HVAAO, ANA3, HEPAN, B2GPG, B2GPM, B2GPA #### [address] #### LUPUS #### The performing lab is in the report. Hematocrit (Bld) [Volume fraction] 37.8 % Normal 35.0-47.0 [facility] Comment on above: Performed By: #### A PTT, TSH5, HEMDF, LDH3, DDI2, BMP3M, ESR, FOLT3, URIC3, FEIBC, FERR3, B12, FT4M #### [place] [address] [place] [address] #### HVAAO, ANA3, HEPAN, B2GPG, B2GPM, B2GPA #### [address] #### LUPUS #### The performing lab is in the report. Hemoglobin (Bld) [Mass/Vol] 12.4 g/dL Normal 11.7-16.0 [facility] Comment on above: Performed By: #### A PTT, TSH5, HEMDF, LDH3, DDI2, BMP3M, ESR, FOLT3, URIC3, FEIBC, FERR3, B12, FT4M #### [facility] [address] [place] [address] #### HVAAO, ANA3, HEPAN, B2GPG, B2GPM, B2GPA #### [address] #### LUPUS #### The performing lab is in the report. Lymphocytes (Bld) [#/Vol] 1.7 10*3/uL Normal 1.0-4.3 [facility] Comment on above: Performed By: #### A PTT, TSH5, HEMDF, LDH3, DDI2, BMP3M, ESR, FOLT3, URIC3, FEIBC, FERR3, B12, FT4M #### [place] [address] [place] [address] #### HVAAO, ANA3, HEPAN, B2GPG, B2GPM, B2GPA #### [address] #### LUPUS #### The performing lab is in the report. Lymphocytes/100 WBC (Bld) 21.0 % Normal 20.0-40.0 [facility] Comment on above: Performed By: #### A PTT, TSH5, HEMDF, LDH3, DDI2, BMP3M, ESR, FOLT3, URIC3, FEIBC, FERR3, B12, FT4M #### [address] [place] [address] #### HVAAO, ANA3, HEPAN, B2GPG, B2GPM, B2GPA #### [address] #### LUPUS #### The performing lab is in the report. MCH (RBC) [Entitic mass] 30.5 pg Normal 26.0-34.0 [facility] Comment on above: Performed By: #### A PTT, TSH5, HEMDF, LDH3, DDI2, BMP3M, ESR, FOLT3, URIC3, FEIBC, FERR3, B12, FT4M #### [facility] [address] [place] [address] #### HVAAO, ANA3, HEPAN, B2GPG, B2GPM, B2GPA #### [address] #### LUPUS #### The performing lab is in the report. MCHC 32.8 % Normal 32.0-36.0 [facility] Comment on above: Performed By: #### A PTT, TSH5, HEMDF, LDH3, DDI2, BMP3M, ESR, FOLT3, URIC3, FEIBC, FERR3, B12, FT4M #### [facility] [address] [place] [address] #### HVAAO, ANA3, HEPAN, B2GPG, B2GPM, B2GPA #### [address] #### LUPUS #### The performing lab is in the report. MCV (RBC) [Entitic vol] 92.9 fL Normal 79.0-98.0 [facility] Comment on above: Performed By: #### A PTT, TSH5, HEMDF, LDH3, DDI2, BMP3M, ESR, FOLT3, URIC3, FEIBC, FERR3, B12, FT4M #### [address] [place] [address] #### HVAAO, ANA3, HEPAN, B2GPG, B2GPM, B2GPA #### [address] #### LUPUS #### The performing lab is in the report. Monocytes (Bld) [#/Vol] 0.6 10*3/uL Normal 0.0-0.8 [facility] Comment on above: Performed By: #### A PTT, TSH5, HEMDF, LDH3, DDI2, BMP3M, ESR, FOLT3, URIC3, FEIBC, FERR3, B12, FT4M #### [address] [place] [address] #### HVAAO, ANA3, HEPAN, B2GPG, B2GPM, B2GPA #### [address] #### LUPUS #### The performing lab is in the report. Monocytes/100 WBC (Bld) 7.9 % Normal 2.0-10.0 [facility] Comment on above: Performed By: #### A PTT, TSH5, HEMDF, LDH3, DDI2, BMP3M, ESR, FOLT3, URIC3, FEIBC, FERR3, B12, FT4M #### [address] [place] #### HVAAO, ANA3, HEPAN, B2GPG, B2GPM, B2GPA #### [address] #### LUPUS #### The performing lab is in the report. Platelet mean volume (Bld) [Entitic vol] 8.8 fL Normal 7.4-10.4 [facility] Comment on above: Performed By: #### A PTT, TSH5, HEMDF, LDH3, DDI2, BMP3M, ESR, FOLT3, URIC3, FEIBC, FERR3, B12, FT4M #### [address] [place] #### HVAAO, ANA3, HEPAN, B2GPG, B2GPM, B2GPA #### [address] #### LUPUS #### The performing lab is in the report. Platelets (Bld) [#/Vol] 280 10*3/uL Normal 140-440 [facility] Comment on above: Performed By: #### A PTT, TSH5, HEMDF, LDH3, DDI2, BMP3M, ESR, FOLT3, URIC3, FEIBC, FERR3, B12, FT4M #### [place] [address] [place] [address] #### HVAAO, ANA3, HEPAN, B2GPG, B2GPM, B2GPA #### [address] #### LUPUS #### The performing lab is in the report. RBC (Bld) [#/Vol] 4.07 10*6/uL Normal 3.80-5.20 [facility] Comment on above: Performed By: #### A PTT, TSH5, HEMDF, LDH3, DDI2, BMP3M, ESR, FOLT3, URIC3, FEIBC, FERR3, B12, FT4M #### [place] [address] [place] [address] #### HVAAO, ANA3, HEPAN, B2GPG, B2GPM, B2GPA #### [address] #### LUPUS #### The performing lab is in the report. WBC (Bld) [#/Vol] 8.0 10*3/uL Normal 3.6-10.7 [facility] Comment on above: Performed By: #### A PTT, TSH5, HEMDF, LDH3, DDI2, BMP3M, ESR, FOLT3, URIC3, FEIBC, FERR3, B12, FT4M #### [address] [place] [address] #### HVAAO, ANA3, HEPAN, B2GPG, B2GPM, B2GPA #### [address] #### LUPUS #### The performing lab is in the report. SARS-CoV-2 Antigenon 022 SARS-CoV-2 Antigen Negative Normal Negative [facility] Comment on above: Result Comment: A negative result does not rule out the possibility of SARS-CoV-2 infection. NAAT-based methods should be considered for symptomatic patients presenting greater than seven days after onset of symptoms. Method: Lateral flow immunoassay. Fact sheets for healthcare providers and patients can be found at the following sites: https://www.[facility].gov/media/021287/download https://www.[facility].gov/media/788750/download Performed By: #### A PTT, TSH5, HEMDF, LDH3, DDI2, BMP3M, ESR, FOLT3, URIC3, FEIBC, FERR3, B12, FT4M #### [place] [address] [place] [address] #### HVAAO, ANA3, HEPAN, B2GPG, B2GPM, B2GPA #### [address] #### LUPUS #### The performing lab is in the report. Basic Metabolic Panelon 10-23 Anion gap [Moles/Vol] 5 mmol/L Normal 3-13 [facility] Comment on above: Performed By: #### A PTT, TSH5, HEMDF, LDH3, DDI2, BMP3M, ESR, FOLT3, URIC3, FEIBC, FERR3, B12, FT4M #### [address] [place] [address] #### HVAAO, ANA3, HEPAN, B2GPG, B2GPM, B2GPA #### [address] #### LUPUS #### The performing lab is in the report. Calcium [Mass/Vol] 9.2 mg/dL Normal 8.4-10.4 [facility] Comment on above: Performed By: #### A PTT, TSH5, HEMDF, LDH3, DDI2, BMP3M, ESR, FOLT3, URIC3, FEIBC, FERR3, B12, FT4M #### [address] [place] [address] #### HVAAO, ANA3, HEPAN, B2GPG, B2GPM, B2GPA #### [address] #### LUPUS #### The performing lab is in the report. CO2 [Moles/Vol] 28 mmol/L Normal 22-30 [facility] Comment on above: Performed By: #### A PTT, TSH5, HEMDF, LDH3, DDI2, BMP3M, ESR, FOLT3, URIC3, FEIBC, FERR3, B12, FT4M #### [place] [address] [place] [address] #### HVAAO, ANA3, HEPAN, B2GPG, B2GPM, B2GPA #### [address] #### LUPUS #### The performing lab is in the report. Glucose [Mass/Vol] 106 mg/dL High 70-100 [facility] Comment on above: Performed By: #### A PTT, TSH5, HEMDF, LDH3, DDI2, BMP3M, ESR, FOLT3, URIC3, FEIBC, FERR3, B12, FT4M #### [address] [place] [address] #### HVAAO, ANA3, HEPAN, B2GPG, B2GPM, B2GPA #### [address] #### LUPUS #### The performing lab is in the report. Urea nitrogen [Mass/Vol] 14 mg/dL Normal 9-20 [facility] Comment on above: Performed By: #### A PTT, TSH5, HEMDF, LDH3, DDI2, BMP3M, ESR, FOLT3, URIC3, FEIBC, FERR3, B12, FT4M #### [address] [place] [address] #### HVAAO, ANA3, HEPAN, B2GPG, B2GPM, B2GPA #### [address] #### LUPUS #### The performing lab is in the report. Creatinine [Mass/Vol] 0.88 mg/dL Normal 0.52-1.25 [facility] Comment on above: Performed By: #### A PTT, TSH5, HEMDF, LDH3, DDI2, BMP3M, ESR, FOLT3, URIC3, FEIBC, FERR3, B12, FT4M #### [facility] [address] [place] [address] #### HVAAO, ANA3, HEPAN, B2GPG, B2GPM, B2GPA #### [address] [phone] #### LUPUS #### The performing lab is in the report. GFR/1.73 sq M.predicted among blacks MDRD (S/P/Bld) [Vol rate/Area] 72.6 mL/min/{1.73_m2} Normal >60 [facility] Comment on above: Performed By: #### A PTT, TSH5, HEMDF, LDH3, DDI2, BMP3M, ESR, FOLT3, URIC3, FEIBC, FERR3, B12, FT4M #### [facility] [address] [place] [address] #### HVAAO, ANA3, HEPAN, B2GPG, B2GPM, B2GPA #### [address] [phone] #### LUPUS #### The performing lab is in the report. GFR/1.73 sq M.predicted among non-blacks MDRD (S/P/Bld) [Vol rate/Area] 62.7 mL/min/{1.73_m2} Normal >60 [facility] Comment on above: Result Comment: KDIG [...] FOLT3, URIC3, FEIBC, FERR3, B12, FT4M #### [place] [address] [place] [address] #### HVAAO, ANA3, HEPAN, B2GPG, B2GPM, B2GPA #### [address] #### LUPUS #### The performing lab is in the report. Chloride [Moles/Vol] 108 mmol/L High 98-107 [facility] Comment on above: Performed By: #### A PTT, TSH5, HEMDF, LDH3, DDI2, BMP3M, ESR, FOLT3, URIC3, FEIBC, FERR3, B12, FT4M #### [address] [place] [address] #### HVAAO, ANA3, HEPAN, B2GPG, B2GPM, B2GPA #### [address] #### LUPUS #### The performing lab is in the report. Potassium [Moles/Vol] 4.1 mmol/L Normal 3.5-5.1 [facility] Comment on above: Performed By: #### A PTT, TSH5, HEMDF, LDH3, DDI2, BMP3M, ESR, FOLT3, URIC3, FEIBC, FERR3, B12, FT4M #### [address] [place] [address] #### HVAAO, ANA3, HEPAN, B2GPG, B2GPM, B2GPA #### [address] #### LUPUS #### The performing lab is in the report. Sodium [Moles/Vol] 141 mmol/L Normal 135-145 [facility] Comment on above: Performed By: #### A PTT, TSH5, HEMDF, LDH3, DDI2, BMP3M, ESR, FOLT3, URIC3, FEIBC, FERR3, B12, FT4M #### [facility] [address] [place] [address] #### HVAAO, ANA3, HEPAN, B2GPG, B2GPM, B2GPA #### [facility] [address] [place] [address] #### LUPUS #### The performing lab is in the report. 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 [address] #### HVAAO, ANA3, HEPAN, B2GPG, B2GPM, B2GPA #### [address] #### LUPUS #### The performing lab is in the report. Abs Neutrophile Cnt 7.7 10*3/uL High 1.8-7.0 [facility] Comment on above: Performed By: #### A PTT, TSH5, HEMDF, LDH3, DDI2, BMP3M, ESR, FOLT3, URIC3, FEIBC, FERR3, B12, FT4M #### [facility] [address] [facility] [place] [facility] [place] [address] #### HVAAO, ANA3, HEPAN, B2GPG, B2GPM, B2GPA #### [address] #### LUPUS #### The performing lab is in the report. Basophils/100 WBC (Bld) 0.9 % Normal 0.0-2.0 [facility] Comment on above: Performed By: #### A PTT, TSH5, HEMDF, LDH3, DDI2, BMP3M, ESR, FOLT3, URIC3, FEIBC, FERR3, B12, FT4M #### [facility] [address] [facility] [place] [facility] [place] [address] #### HVAAO, ANA3, HEPAN, B2GPG, B2GPM, B2GPA #### [address] #### LUPUS #### The performing lab is in the report. Eosinophils (Bld) [#/Vol] 0.5 10*3/uL Normal 0.0-0.5 [facility] Comment on above: Performed By: #### A PTT, TSH5, HEMDF, LDH3, DDI2, BMP3M, ESR, FOLT3, URIC3, FEIBC, FERR3, B12, FT4M #### [address] [place] [address] #### HVAAO, ANA3, HEPAN, B2GPG, B2GPM, B2GPA #### [address] #### LUPUS #### The performing lab is in the report. Eosinophils/100 WBC (Bld) 4.4 % Normal 1.0-6.0 [facility] Comment on above: Performed By: #### A PTT, TSH5, HEMDF, LDH3, DDI2, BMP3M, ESR, FOLT3, URIC3, FEIBC, FERR3, B12, FT4M #### [facility] [address] [place] [address] #### HVAAO, ANA3, HEPAN, B2GPG, B2GPM, B2GPA #### [address] #### LUPUS #### The performing lab is in the report. Erythrocyte distribution width (RBC) [Ratio] 15.4 % High 11.5-14.5 [facility] Comment on above: Performed By: #### A PTT, TSH5, HEMDF, LDH3, DDI2, BMP3M, ESR, FOLT3, URIC3, FEIBC, FERR3, B12, FT4M #### [facility] [address] [place] [address] #### HVAAO, ANA3, HEPAN, B2GPG, B2GPM, B2GPA #### [address] #### LUPUS #### The performing lab is in the report. Granulocytes/100 WBC (Bld) 67.5 % Normal 40.0-80.0 [facility] Comment on above: Performed By: #### A PTT, TSH5, HEMDF, LDH3, DDI2, BMP3M, ESR, FOLT3, URIC3, FEIBC, FERR3, B12, FT4M #### [facility] [address] [place] [address] #### HVAAO, ANA3, HEPAN, B2GPG, B2GPM, B2GPA #### [address] #### LUPUS #### The performing lab is in the report. Hematocrit (Bld) [Volume fraction] 39.5 % Normal 35.0-47.0 [facility] Comment on above: Performed By: #### A PTT, TSH5, HEMDF, LDH3, DDI2, BMP3M, ESR, FOLT3, URIC3, FEIBC, FERR3, B12, FT4M #### [place] [address] [place] [address] #### HVAAO, ANA3, HEPAN, B2GPG, B2GPM, B2GPA #### [address] #### LUPUS #### The performing lab is in the report. Hemoglobin (Bld) [Mass/Vol] 12.9 g/dL Normal 11.7-16.0 [facility] Comment on above: Performed By: #### A PTT, TSH5, HEMDF, LDH3, DDI2, BMP3M, ESR, FOLT3, URIC3, FEIBC, FERR3, B12, FT4M #### [address] [place] [address] #### HVAAO, ANA3, HEPAN, B2GPG, B2GPM, B2GPA #### [address] #### LUPUS #### The performing lab is in the report. Lymphocytes (Bld) [#/Vol] 2.2 10*3/uL Normal 1.0-4.3 [facility] Comment on above: Performed By: #### A PTT, TSH5, HEMDF, LDH3, DDI2, BMP3M, ESR, FOLT3, URIC3, FEIBC, FERR3, B12, FT4M #### [address] [place] [address] #### HVAAO, ANA3, HEPAN, B2GPG, B2GPM, B2GPA #### [address] #### LUPUS #### The performing lab is in the report. Lymphocytes/100 WBC (Bld) 19.1 % Low 20.0-40.0 [facility] Comment on above: Performed By: #### A PTT, TSH5, HEMDF, LDH3, DDI2, BMP3M, ESR, FOLT3, URIC3, FEIBC, FERR3, B12, FT4M #### [facility] [address] [place] [address] #### HVAAO, ANA3, HEPAN, B2GPG, B2GPM, B2GPA #### [address] #### LUPUS #### The performing lab is in the report. MCH (RBC) [Entitic mass] 30.1 pg Normal 26.0-34.0 [facility] Comment on above: Performed By: #### A PTT, TSH5, HEMDF, LDH3, DDI2, BMP3M, ESR, FOLT3, URIC3, FEIBC, FERR3, B12, FT4M #### [facility] [address] [facility] [place] [facility] [address] [place] #### HVAAO, ANA3, HEPAN, B2GPG, B2GPM, B2GPA #### [address] #### LUPUS #### The performing lab is in the report. MCHC 32.6 % Normal 32.0-36.0 [facility] Comment on above: Performed By: #### A PTT, TSH5, HEMDF, LDH3, DDI2, BMP3M, ESR, FOLT3, URIC3, FEIBC, FERR3, B12, FT4M #### [address] [place] [address] #### HVAAO, ANA3, HEPAN, B2GPG, B2GPM, B2GPA #### [address] #### LUPUS #### The performing lab is in the report. MCV (RBC) [Entitic vol] 92.4 fL Normal 79.0-98.0 [facility] Comment on above: Performed By: #### A PTT, TSH5, HEMDF, LDH3, DDI2, BMP3M, ESR, FOLT3, URIC3, FEIBC, FERR3, B12, FT4M #### [facility] [address] [place] [address] #### HVAAO, ANA3, HEPAN, B2GPG, B2GPM, B2GPA #### [address] #### LUPUS #### The performing lab is in the report. Monocytes (Bld) [#/Vol] 0.9 10*3/uL High 0.0-0.8 [facility] Comment on above: Performed By: #### A PTT, TSH5, HEMDF, LDH3, DDI2, BMP3M, ESR, FOLT3, URIC3, FEIBC, FERR3, B12, FT4M #### [address] [place] [address] #### HVAAO, ANA3, HEPAN, B2GPG, B2GPM, B2GPA #### [address] #### LUPUS #### The performing lab is in the report. Monocytes/100 WBC (Bld) 8.1 % Normal 2.0-10.0 [facility] Comment on above: Performed By: #### A PTT, TSH5, HEMDF, LDH3, DDI2, BMP3M, ESR, FOLT3, URIC3, FEIBC, FERR3, B12, FT4M #### [place] [address] [place] [address] #### HVAAO, ANA3, HEPAN, B2GPG, B2GPM, B2GPA #### [address] #### LUPUS #### The performing lab is in the report. Platelet mean volume (Bld) [Entitic vol] 8.8 fL Normal 7.4-10.4 [facility] Comment on above: Performed By: #### A PTT, TSH5, HEMDF, LDH3, DDI2, BMP3M, ESR, FOLT3, URIC3, FEIBC, FERR3, B12, FT4M #### [address] [place] [address] #### HVAAO, ANA3, HEPAN, B2GPG, B2GPM, B2GPA #### [address] #### LUPUS #### The performing lab is in the report. Platelets (Bld) [#/Vol] 260 10*3/uL Normal 140-440 [facility] Comment on above: Performed By: #### A PTT, TSH5, HEMDF, LDH3, DDI2, BMP3M, ESR, FOLT3, URIC3, FEIBC, FERR3, B12, FT4M #### [address] [place] [address] #### HVAAO, ANA3, HEPAN, B2GPG, B2GPM, B2GPA #### [address] #### LUPUS #### The performing lab is in the report. RBC (Bld) [#/Vol] 4.27 10*6/uL Normal 3.80-5.20 [facility] Comment on above: Performed By: #### A PTT, TSH5, HEMDF, LDH3, DDI2, BMP3M, ESR, FOLT3, URIC3, FEIBC, FERR3, B12, FT4M #### [address] [place] [address] #### HVAAO, ANA3, HEPAN, B2GPG, B2GPM, B2GPA #### [address] #### LUPUS #### The performing lab is in the report. WBC (Bld) [#/Vol] 11.4 10*3/uL High 3.6-10.7 [facility] Comment on above: Performed By: #### A PTT, TSH5, HEMDF, LDH3, DDI2, BMP3M, ESR, FOLT3, URIC3, FEIBC, FERR3, B12, FT4M #### [address] [place] [address] #### HVAAO, ANA3, HEPAN, B2GPG, B2GPM, B2GPA #### [address] #### LUPUS #### The performing lab is in the report. Basic Metabolic Panelon 10-23 Calcium [Mass/Vol] 9.1 mg/dL Normal 8.4-10.4 [facility] Comment on above: Performed By: #### A PTT, TSH5, HEMDF, LDH3, DDI2, BMP3M, ESR, FOLT3, URIC3, FEIBC, FERR3, B12, FT4M #### [address] [place] [address] #### HVAAO, ANA3, HEPAN, B2GPG, B2GPM, B2GPA #### [address] #### LUPUS #### The performing lab is in the report. Anion gap [Moles/Vol] 6 mmol/L Normal 3-13 [facility] Comment on above: Performed By: #### A PTT, TSH5, HEMDF, LDH3, DDI2, BMP3M, ESR, FOLT3, URIC3, FEIBC, FERR3, B12, FT4M #### [address] [place] [address] #### HVAAO, ANA3, HEPAN, B2GPG, B2GPM, B2GPA #### [address] #### LUPUS #### The performing lab is in the report. CO2 [Moles/Vol] 28 mmol/L Normal 22-30 [facility] Comment on above: Performed By: #### A PTT, TSH5, HEMDF, LDH3, DDI2, BMP3M, ESR, FOLT3, URIC3, FEIBC, FERR3, B12, FT4M #### [address] [place] [address] #### HVAAO, ANA3, HEPAN, B2GPG, B2GPM, B2GPA #### [address] #### LUPUS #### The performing lab is in the report. Creatinine [Mass/Vol] 0.90 mg/dL Normal 0.52-1.25 [facility] Comment on above: Performed By: #### A PTT, TSH5, HEMDF, LDH3, DDI2, BMP3M, ESR, FOLT3, URIC3, FEIBC, FERR3, B12, FT4M #### [facility] [address] [place] [address] #### HVAAO, ANA3, HEPAN, B2GPG, B2GPM, B2GPA #### [address] #### LUPUS #### The performing lab is in the report. GFR/1.73 sq M.predicted among blacks MDRD (S/P/Bld) [Vol rate/Area] 70.7 mL/min/{1.73_m2} Normal >60 [facility] Comment on above: Performed By: #### A PTT, TSH5, HEMDF, LDH3, DDI2, BMP3M, ESR, FOLT3, URIC3, FEIBC, FERR3, B12, FT4M #### [place] [address] [place] [address] #### HVAAO, ANA3, HEPAN, B2GPG, B2GPM, B2GPA #### [address] #### LUPUS #### The performing lab is in the report. GFR/1.73 sq M.predicted among non-blacks MDRD (S/P/Bld) [Vol rate/Area] 61.0 mL/min/{1.73_m2} Normal >60 [facility] Comment on above: Result Comment: KDIG [...] FEIBC, FERR3, B12, FT4M #### [facility] [address] [place] [address] [place] [address] #### HVAAO, ANA3, HEPAN, B2GPG, B2GPM, B2GPA #### [address] #### LUPUS #### The performing lab is in the report. Glucose [Mass/Vol] 136 mg/dL High 70-100 [facility] Comment on above: Performed By: #### A PTT, TSH5, HEMDF, LDH3, DDI2, BMP3M, ESR, FOLT3, URIC3, FEIBC, FERR3, B12, FT4M #### [address] [place] [address] #### HVAAO, ANA3, HEPAN, B2GPG, B2GPM, B2GPA #### [address] [id number] #### LUPUS #### The performing lab is in the report. Urea nitrogen [Mass/Vol] 14 mg/dL Normal 9-20 [facility] Comment on above: Performed By: #### A PTT, TSH5, HEMDF, LDH3, DDI2, BMP3M, ESR, FOLT3, URIC3, FEIBC, FERR3, B12, FT4M #### [address] [place] [address] #### HVAAO, ANA3, HEPAN, B2GPG, B2GPM, B2GPA #### [address] #### LUPUS #### The performing lab is in the report. Chloride [Moles/Vol] 107 mmol/L Normal 98-107 [facility] Comment on above: Performed By: #### A PTT, TSH5, HEMDF, LDH3, DDI2, BMP3M, ESR, FOLT3, URIC3, FEIBC, FERR3, B12, FT4M #### [facility] [address] [place] [address] #### HVAAO, ANA3, HEPAN, B2GPG, B2GPM, B2GPA #### [address] #### LUPUS #### The performing lab is in the report. Potassium [Moles/Vol] 3.7 mmol/L Normal 3.5-5.1 [facility] Comment on above: Performed By: #### A PTT, TSH5, HEMDF, LDH3, DDI2, BMP3M, ESR, FOLT3, URIC3, FEIBC, FERR3, B12, FT4M #### [facility] [address] [place] [address] #### HVAAO, ANA3, HEPAN, B2GPG, B2GPM, B2GPA #### [address] #### LUPUS #### The performing lab is in the report. Sodium [Moles/Vol] 142 mmol/L Normal 135-145 [facility] Comment on above: Performed By: #### A PTT, TSH5, HEMDF, LDH3, DDI2, BMP3M, ESR, FOLT3, URIC3, FEIBC, FERR3, B12, FT4M #### [facility] [address] [place] [address] #### HVAAO, ANA3, HEPAN, B2GPG, B2GPM, B2GPA #### [address] #### LUPUS #### The performing lab is in the report. Hemogram w/ Autodiffon 02-17 -2022 Abs Baso Cnt 0.1 10*3/uL Normal 0.0-0.2 [facility] Comment on above: Performed By: #### A PTT, TSH5, HEMDF, LDH3, DDI2, BMP3M, ESR, FOLT3, URIC3, FEIBC, FERR3, B12, FT4M #### [place] [address] [place] [address] #### HVAAO, ANA3, HEPAN, B2GPG, B2GPM, B2GPA #### [address] #### LUPUS #### The performing lab is in the report. Abs Neutrophile Cnt 8.0 10*3/uL High 1.8-7.0 [facility] Comment on above: Performed By: #### A PTT, TSH5, HEMDF, LDH3, DDI2, BMP3M, ESR, FOLT3, URIC3, FEIBC, FERR3, B12, FT4M #### [address] [place] [address] #### HVAAO, ANA3, HEPAN, B2GPG, B2GPM, B2GPA #### [address] #### LUPUS #### The performing lab is in the report. Basophils/100 WBC (Bld) 0.5 % Normal 0.0-2.0 [facility] Comment on above: Performed By: #### A PTT, TSH5, HEMDF, LDH3, DDI2, BMP3M, ESR, FOLT3, URIC3, FEIBC, FERR3, B12, FT4M #### [address] [place] [address] #### HVAAO, ANA3, HEPAN, B2GPG, B2GPM, B2GPA #### [address] #### LUPUS #### The performing lab is in the report. Eosinophils (Bld) [#/Vol] 0.3 10*3/uL Normal 0.0-0.5 [facility] Comment on above: Performed By: #### A PTT, TSH5, HEMDF, LDH3, DDI2, BMP3M, ESR, FOLT3, URIC3, FEIBC, FERR3, B12, FT4M #### [place] [address] [place] [address] #### HVAAO, ANA3, HEPAN, B2GPG, B2GPM, B2GPA #### [address] #### LUPUS #### The performing lab is in the report. Eosinophils/100 WBC (Bld) 2.9 % Normal 1.0-6.0 [facility] Comment on above: Performed By: #### A PTT, TSH5, HEMDF, LDH3, DDI2, BMP3M, ESR, FOLT3, URIC3, FEIBC, FERR3, B12, FT4M #### [address] [place] [address] #### HVAAO, ANA3, HEPAN, B2GPG, B2GPM, B2GPA #### [address] #### LUPUS #### The performing lab is in the report. Erythrocyte distribution width (RBC) [Ratio] 15.2 % High 11.5-14.5 [facility] Comment on above: Performed By: #### A PTT, TSH5, HEMDF, LDH3, DDI2, BMP3M, ESR, FOLT3, URIC3, FEIBC, FERR3, B12, FT4M #### [address] [place] [address] #### HVAAO, ANA3, HEPAN, B2GPG, B2GPM, B2GPA #### [address] #### LUPUS #### The performing lab is in the report. Granulocytes/100 WBC (Bld) 72.6 % Normal 40.0-80.0 [facility] Comment on above: Performed By: #### A PTT, TSH5, HEMDF, LDH3, DDI2, BMP3M, ESR, FOLT3, URIC3, FEIBC, FERR3, B12, FT4M #### [address] [place] [place] [address] #### HVAAO, ANA3, HEPAN, B2GPG, B2GPM, B2GPA #### [address] #### LUPUS #### The performing lab is in the report. Hematocrit (Bld) [Volume fraction] 39.8 % Normal 35.0-47.0 [facility] Comment on above: Performed By: #### A PTT, TSH5, HEMDF, LDH3, DDI2, BMP3M, ESR, FOLT3, URIC3, FEIBC, FERR3, B12, FT4M #### [address] [place] #### HVAAO, ANA3, HEPAN, B2GPG, B2GPM, B2GPA #### [address] #### LUPUS #### The performing lab is in the report. Hemoglobin (Bld) [Mass/Vol] 13.0 g/dL Normal 11.7-16.0 [facility] Comment on above: Performed By: #### A PTT, TSH5, HEMDF, LDH3, DDI2, BMP3M, ESR, FOLT3, URIC3, FEIBC, FERR3, B12, FT4M #### [address] [place] [address] #### HVAAO, ANA3, HEPAN, B2GPG, B2GPM, B2GPA #### [address] #### LUPUS #### The performing lab is in the report. Lymphocytes (Bld) [#/Vol] 1.8 10*3/uL Normal 1.0-4.3 [facility] Comment on above: Performed By: #### A PTT, TSH5, HEMDF, LDH3, DDI2, BMP3M, ESR, FOLT3, URIC3, FEIBC, FERR3, B12, FT4M #### [facility] [address] [place] #### HVAAO, ANA3, HEPAN, B2GPG, B2GPM, B2GPA #### [address] #### LUPUS #### The performing lab is in the report. Lymphocytes/100 WBC (Bld) 16.1 % Low 20.0-40.0 [facility] Comment on above: Performed By: #### A PTT, TSH5, HEMDF, LDH3, DDI2, BMP3M, ESR, FOLT3, URIC3, FEIBC, FERR3, B12, FT4M #### [place] [address] [place] #### HVAAO, ANA3, HEPAN, B2GPG, B2GPM, B2GPA #### [address] #### LUPUS #### The performing lab is in the report. MCH (RBC) [Entitic mass] 30.4 pg Normal 26.0-34.0 [facility] Comment on above: Performed By: #### A PTT, TSH5, HEMDF, LDH3, DDI2, BMP3M, ESR, FOLT3, URIC3, FEIBC, FERR3, B12, FT4M #### [facility] [address] [place] #### HVAAO, ANA3, HEPAN, B2GPG, B2GPM, B2GPA #### [address] #### LUPUS #### The performing lab is in the report. MCHC 32.8 % Normal 32.0-36.0 [facility] Comment on above: Performed By: #### A PTT, TSH5, HEMDF, LDH3, DDI2, BMP3M, ESR, FOLT3, URIC3, FEIBC, FERR3, B12, FT4M #### [place] [address] [place] #### HVAAO, ANA3, HEPAN, B2GPG, B2GPM, B2GPA #### [address] #### LUPUS #### The performing lab is in the report. MCV (RBC) [Entitic vol] 92.6 fL Normal 79.0-98.0 [facility] Comment on above: Performed By: #### A PTT, TSH5, HEMDF, LDH3, DDI2, BMP3M, ESR, FOLT3, URIC3, FEIBC, FERR3, B12, FT4M #### [facility] [address] [place], [place] #### HVAAO, ANA3, HEPAN, B2GPG, B2GPM, B2GPA #### [address] #### LUPUS #### The performing lab is in the report. Monocytes (Bld) [#/Vol] 0.9 10*3/uL High 0.0-0.8 [facility] Comment on above: Performed By: #### A PTT, TSH5, HEMDF, LDH3, DDI2, BMP3M, ESR, FOLT3, URIC3, FEIBC, FERR3, B12, FT4M #### [facility] [address] [place], [place] #### HVAAO, ANA3, HEPAN, B2GPG, B2GPM, B2GPA #### [address] #### LUPUS #### The performing lab is in the report. Monocytes/100 WBC (Bld) 7.9 % Normal 2.0-10.0 [facility] Comment on above: Performed By: #### A PTT, TSH5, HEMDF, LDH3, DDI2, BMP3M, ESR, FOLT3, URIC3, FEIBC, FERR3, B12, FT4M #### [facility] [address] [place] #### HVAAO, ANA3, HEPAN, B2GPG, B2GPM, B2GPA #### [address] #### LUPUS #### The performing lab is in the report. Platelet mean volume (Bld) [Entitic vol] 8.7 fL Normal 7.4-10.4 [facility] Comment on above: Performed By: #### A PTT, TSH5, HEMDF, LDH3, DDI2, BMP3M, ESR, FOLT3, URIC3, FEIBC, FERR3, B12, FT4M #### [facility] [address] [place] [address] #### HVAAO, ANA3, HEPAN, B2GPG, B2GPM, B2GPA #### [address] #### LUPUS #### The performing lab is in the report. Platelets (Bld) [#/Vol] 236 10*3/uL Normal 140-440 [facility] Comment on above: Performed By: #### A PTT, TSH5, HEMDF, LDH3, DDI2, BMP3M, ESR, FOLT3, URIC3, FEIBC, FERR3, B12, FT4M #### [facility] [address] [place] [address] #### HVAAO, ANA3, HEPAN, B2GPG, B2GPM, B2GPA #### [address] #### LUPUS #### The performing lab is in the report. RBC (Bld) [#/Vol] 4.29 10*6/uL Normal 3.80-5.20 [facility] Comment on above: Performed By: #### A PTT, TSH5, HEMDF, LDH3, DDI2, BMP3M, ESR, FOLT3, URIC3, FEIBC, FERR3, B12, FT4M #### [facility] [address] [place] [address] #### HVAAO, ANA3, HEPAN, B2GPG, B2GPM, B2GPA #### [address] #### LUPUS #### The performing lab is in the report. WBC (Bld) [#/Vol] 11.0 10*3/uL High 3.6-10.7 [facility] Comment on above: Performed By: #### A PTT, TSH5, HEMDF, LDH3, DDI2, BMP3M, ESR, FOLT3, URIC3, FEIBC, FERR3, B12, FT4M #### [facility] [address] [place] [address] #### HVAAO, ANA3, HEPAN, B2GPG, B2GPM, B2GPA #### [address] #### LUPUS #### The performing lab is in the report. APTTon 11-07-2021 aPTT Coag (Bld) [Time] 29.9 s Normal 20.0-30.5 [facility] Comment on above: Result Comment: NOTE : The therapeutic time for Heparin anticoagulation, based on Xa activity inhibition, is an APTT of 46-80 seconds. Performed By: #### A PTT, TSH5, HEMDF, LDH3, DDI2, BMP3M, ESR, FOLT3, URIC3, FEIBC, FERR3, B12, FT4M #### [address] [place] [address] #### HVAAO, ANA3, HEPAN, B2GPG, B2GPM, B2GPA #### [address] #### LUPUS #### The performing lab is in the report. Basic Metabolic Panelon 10-23 Calcium [Mass/Vol] 9.1 mg/dL Normal 8.4-10.4 [facility] Comment on above: Performed By: #### A PTT, TSH5, HEMDF, LDH3, DDI2, BMP3M, ESR, FOLT3, URIC3, FEIBC, FERR3, B12, FT4M #### [address] [place] [address] #### HVAAO, ANA3, HEPAN, B2GPG, B2GPM, B2GPA #### [address] #### LUPUS #### The performing lab is in the report. Anion gap [Moles/Vol] 5 mmol/L Normal 3-13 [facility] Comment on above: Performed By: #### A PTT, TSH5, HEMDF, LDH3, DDI2, BMP3M, ESR, FOLT3, URIC3, FEIBC, FERR3, B12, FT4M #### [address] [place] [address] #### HVAAO, ANA3, HEPAN, B2GPG, B2GPM, B2GPA #### [address] #### LUPUS #### The performing lab is in the report. CO2 [Moles/Vol] 27 mmol/L Normal 22-30 [facility] Comment on above: Performed By: #### A PTT, TSH5, HEMDF, LDH3, DDI2, BMP3M, ESR, FOLT3, URIC3, FEIBC, FERR3, B12, FT4M #### [address] [place] [address] #### HVAAO, ANA3, HEPAN, B2GPG, B2GPM, B2GPA #### [address] #### LUPUS #### The performing lab is in the report. Creatinine [Mass/Vol] 0.87 mg/dL Normal 0.52-1.25 [facility] Comment on above: Performed By: #### A PTT, TSH5, HEMDF, LDH3, DDI2, BMP3M, ESR, FOLT3, URIC3, FEIBC, FERR3, B12, FT4M #### [address] [place] [address] #### HVAAO, ANA3, HEPAN, B2GPG, B2GPM, B2GPA #### [address] #### LUPUS #### The performing lab is in the report. GFR/1.73 sq M.predicted among blacks MDRD (S/P/Bld) [Vol rate/Area] 73.7 mL/min/{1.73_m2} Normal >60 [facility] Comment on above: Performed By: #### A PTT, TSH5, HEMDF, LDH3, DDI2, BMP3M, ESR, FOLT3, URIC3, FEIBC, FERR3, B12, FT4M #### [facility] [employer] [facility] [address] [place] [address] #### HVAAO, ANA3, HEPAN, B2GPG, B2GPM, B2GPA #### [facility] [address] [place] [address] #### LUPUS #### The performing lab is in the report. GFR/1.73 sq M.predicted among non-blacks MDRD (S/P/Bld) [Vol rate/Area] 63.6 mL/min/{1.73_m2} Normal >60 [facility] Comment on above: Result Comment: KDIG [...] FOLT3, URIC3, FEIBC, FERR3, B12, FT4M #### [facility] [employer] [facility] [address] [place] [address] #### HVAAO, ANA3, HEPAN, B2GPG, B2GPM, B2GPA #### [address] #### LUPUS #### The performing lab is in the report. Glucose [Mass/Vol] 111 mg/dL High 70-100 [facility] Comment on above: Performed By: #### A PTT, TSH5, HEMDF, LDH3, DDI2, BMP3M, ESR, FOLT3, URIC3, FEIBC, FERR3, B12, FT4M #### [facility] [address] [place], [place] #### HVAAO, ANA3, HEPAN, B2GPG, B2GPM, B2GPA #### [address] #### LUPUS #### The performing lab is in the report. Urea nitrogen [Mass/Vol] 12 mg/dL Normal 9-20 [facility] Comment on above: Performed By: #### A PTT, TSH5, HEMDF, LDH3, DDI2, BMP3M, ESR, FOLT3, URIC3, FEIBC, FERR3, B12, FT4M #### [facility] [address] [place], [place] #### HVAAO, ANA3, HEPAN, B2GPG, B2GPM, B2GPA #### [address] #### LUPUS #### The performing lab is in the report. Chloride [Moles/Vol] 109 mmol/L High 98-107 [facility] Comment on above: Performed By: #### A PTT, TSH5, HEMDF, LDH3, DDI2, BMP3M, ESR, FOLT3, URIC3, FEIBC, FERR3, B12, FT4M #### [facility] [address] [place] #### HVAAO, ANA3, HEPAN, B2GPG, B2GPM, B2GPA #### [address] #### LUPUS #### The performing lab is in the report. Potassium [Moles/Vol] 3.9 mmol/L Normal 3.5-5.1 [facility] Comment on above: Performed By: #### A PTT, TSH5, HEMDF, LDH3, DDI2, BMP3M, ESR, FOLT3, URIC3, FEIBC, FERR3, B12, FT4M #### [facility] [address] [place] [address] #### HVAAO, ANA3, HEPAN, B2GPG, B2GPM, B2GPA #### [address] #### LUPUS #### The performing lab is in the report. Sodium [Moles/Vol] 141 mmol/L Normal 135-145 [facility] Comment on above: Performed By: #### A PTT, TSH5, HEMDF, LDH3, DDI2, BMP3M, ESR, FOLT3, URIC3, FEIBC, FERR3, B12, FT4M #### [place] [address] [place] [address] #### HVAAO, ANA3, HEPAN, B2GPG, B2GPM, B2GPA #### [address] #### LUPUS #### The performing lab is in the report. Hemogram w/ Autodiffon 11-07 Abs Baso Cnt 0.0 10*3/uL Normal 0.0-0.2 [facility] Comment on above: Performed By: #### A PTT, TSH5, HEMDF, LDH3, DDI2, BMP3M, ESR, FOLT3, URIC3, FEIBC, FERR3, B12, FT4M #### [address] [place] [address] #### HVAAO, ANA3, HEPAN, B2GPG, B2GPM, B2GPA #### [address] #### LUPUS #### The performing lab is in the report. Abs Neutrophile Cnt 6.0 10*3/uL Normal 1.8-7.0 [facility] Comment on above: Performed By: #### A PTT, TSH5, HEMDF, LDH3, DDI2, BMP3M, ESR, FOLT3, URIC3, FEIBC, FERR3, B12, FT4M #### [place] [address] [place] [address] #### HVAAO, ANA3, HEPAN, B2GPG, B2GPM, B2GPA #### [address] #### LUPUS #### The performing lab is in the report. Basophils/100 WBC (Bld) 0.5 % Normal 0.0-2.0 [facility] Comment on above: Performed By: #### A PTT, TSH5, HEMDF, LDH3, DDI2, BMP3M, ESR, FOLT3, URIC3, FEIBC, FERR3, B12, FT4M #### [address] [place] [address] #### HVAAO, ANA3, HEPAN, B2GPG, B2GPM, B2GPA #### [address] #### LUPUS #### The performing lab is in the report. Eosinophils (Bld) [#/Vol] 0.4 10*3/uL Normal 0.0-0.5 [facility] Comment on above: Performed By: #### A PTT, TSH5, HEMDF, LDH3, DDI2, BMP3M, ESR, FOLT3, URIC3, FEIBC, FERR3, B12, FT4M #### [address] [place] [id number] #### HVAAO, ANA3, HEPAN, B2GPG, B2GPM, B2GPA #### [address] #### LUPUS #### The performing lab is in the report. Eosinophils/100 WBC (Bld) 4.0 % Normal 1.0-6.0 [facility] Comment on above: Performed By: #### A PTT, TSH5, HEMDF, LDH3, DDI2, BMP3M, ESR, FOLT3, URIC3, FEIBC, FERR3, B12, FT4M #### [address] [place] [address] #### HVAAO, ANA3, HEPAN, B2GPG, B2GPM, B2GPA #### [address] #### LUPUS #### The performing lab is in the report. Erythrocyte distribution width (RBC) [Ratio] 15.1 % High 11.5-14.5 [facility] Comment on above: Performed By: #### A PTT, TSH5, HEMDF, LDH3, DDI2, BMP3M, ESR, FOLT3, URIC3, FEIBC, FERR3, B12, FT4M #### [address] [place] #### HVAAO, ANA3, HEPAN, B2GPG, B2GPM, B2GPA #### [address] #### LUPUS #### The performing lab is in the report. Granulocytes/100 WBC (Bld) 64.8 % Normal 40.0-80.0 [facility] Comment on above: Performed By: #### A PTT, TSH5, HEMDF, LDH3, DDI2, BMP3M, ESR, FOLT3, URIC3, FEIBC, FERR3, B12, FT4M #### [address] [place] [address] #### HVAAO, ANA3, HEPAN, B2GPG, B2GPM, B2GPA #### [address] #### LUPUS #### The performing lab is in the report. Hematocrit (Bld) [Volume fraction] 42.6 % Normal 35.0-47.0 [facility] Comment on above: Performed By: #### A PTT, TSH5, HEMDF, LDH3, DDI2, BMP3M, ESR, FOLT3, URIC3, FEIBC, FERR3, B12, FT4M #### [address] [place] [address] #### HVAAO, ANA3, HEPAN, B2GPG, B2GPM, B2GPA #### [address] #### LUPUS #### The performing lab is in the report. Hemoglobin (Bld) [Mass/Vol] 13.9 g/dL Normal 11.7-16.0 [facility] Comment on above: Performed By: #### A PTT, TSH5, HEMDF, LDH3, DDI2, BMP3M, ESR, FOLT3, URIC3, FEIBC, FERR3, B12, FT4M #### [address] [place] [address] #### HVAAO, ANA3, HEPAN, B2GPG, B2GPM, B2GPA #### [address] #### LUPUS #### The performing lab is in the report. Lymphocytes (Bld) [#/Vol] 2.1 10*3/uL Normal 1.0-4.3 [facility] Comment on above: Performed By: #### A PTT, TSH5, HEMDF, LDH3, DDI2, BMP3M, ESR, FOLT3, URIC3, FEIBC, FERR3, B12, FT4M #### [address] [place] [address] #### HVAAO, ANA3, HEPAN, B2GPG, B2GPM, B2GPA #### [address] #### LUPUS #### The performing lab is in the report. Lymphocytes/100 WBC (Bld) 22.8 % Normal 20.0-40.0 [facility] Comment on above: Performed By: #### A PTT, TSH5, HEMDF, LDH3, DDI2, BMP3M, ESR, FOLT3, URIC3, FEIBC, FERR3, B12, FT4M #### [address] [place] [address] #### HVAAO, ANA3, HEPAN, B2GPG, B2GPM, B2GPA #### [address] #### LUPUS #### The performing lab is in the report. MCH (RBC) [Entitic mass] 30.2 pg Normal 26.0-34.0 [facility] Comment on above: Performed By: #### A PTT, TSH5, HEMDF, LDH3, DDI2, BMP3M, ESR, FOLT3, URIC3, FEIBC, FERR3, B12, FT4M #### [address] [place] #### HVAAO, ANA3, HEPAN, B2GPG, B2GPM, B2GPA #### [address] #### LUPUS #### The performing lab is in the report. MCHC 32.7 % Normal 32.0-36.0 [facility] Comment on above: Performed By: #### A PTT, TSH5, HEMDF, LDH3, DDI2, BMP3M, ESR, FOLT3, URIC3, FEIBC, FERR3, B12, FT4M #### [address] [place] #### HVAAO, ANA3, HEPAN, B2GPG, B2GPM, B2GPA #### [address] #### LUPUS #### The performing lab is in the report. MCV (RBC) [Entitic vol] 92.4 fL Normal 79.0-98.0 [facility] Comment on above: Performed By: #### A PTT, TSH5, HEMDF, LDH3, DDI2, BMP3M, ESR, FOLT3, URIC3, FEIBC, FERR3, B12, FT4M #### [place] [address] [place], [place] #### HVAAO, ANA3, HEPAN, B2GPG, B2GPM, B2GPA #### [address] #### LUPUS #### The performing lab is in the report. Monocytes (Bld) [#/Vol] 0.7 10*3/uL Normal 0.0-0.8 [facility] Comment on above: Performed By: #### A PTT, TSH5, HEMDF, LDH3, DDI2, BMP3M, ESR, FOLT3, URIC3, FEIBC, FERR3, B12, FT4M #### [facility] [address] [place] [address] #### HVAAO, ANA3, HEPAN, B2GPG, B2GPM, B2GPA #### [address] #### LUPUS #### The performing lab is in the report. Monocytes/100 WBC (Bld) 7.9 % Normal 2.0-10.0 [facility] Comment on above: Performed By: #### A PTT, TSH5, HEMDF, LDH3, DDI2, BMP3M, ESR, FOLT3, URIC3, FEIBC, FERR3, B12, FT4M #### [facility] [address] [place] [address] #### HVAAO, ANA3, HEPAN, B2GPG, B2GPM, B2GPA #### [address] #### LUPUS #### The performing lab is in the report. Platelet mean volume (Bld) [Entitic vol] 8.7 fL Normal 7.4-10.4 [facility] Comment on above: Performed By: #### A PTT, TSH5, HEMDF, LDH3, DDI2, BMP3M, ESR, FOLT3, URIC3, FEIBC, FERR3, B12, FT4M #### [facility] [address] [facility] [place] [facility] [place] [address] #### HVAAO, ANA3, HEPAN, B2GPG, B2GPM, B2GPA #### [address] #### LUPUS #### The performing lab is in the report. Platelets (Bld) [#/Vol] 232 10*3/uL Normal 140-440 [facility] Comment on above: Performed By: #### A PTT, TSH5, HEMDF, LDH3, DDI2, BMP3M, ESR, FOLT3, URIC3, FEIBC, FERR3, B12, FT4M #### [facility] [address] [place] [address] #### HVAAO, ANA3, HEPAN, B2GPG, B2GPM, B2GPA #### [place] [address] [place], [place] #### LUPUS #### The performing lab is in the report. RBC (Bld) [#/Vol] 4.61 10*6/uL Normal 3.80-5.20 [facility] Comment on above: Performed By: #### A PTT, TSH5, HEMDF, LDH3, DDI2, BMP3M, ESR, FOLT3, URIC3, FEIBC, FERR3, B12, FT4M #### [facility] [address] [facility] [place] #### HVAAO, ANA3, HEPAN, B2GPG, B2GPM, B2GPA #### [address] #### LUPUS #### The performing lab is in the report. WBC (Bld) [#/Vol] 9.2 10*3/uL Normal 3.6-10.7 [facility] Comment on above: Performed By: #### A PTT, TSH5, HEMDF, LDH3, DDI2, BMP3M, ESR, FOLT3, URIC3, FEIBC, FERR3, B12, FT4M #### [facility] [address] [place] [address] #### HVAAO, ANA3, HEPAN, B2GPG, B2GPM, B2GPA #### [address] #### LUPUS #### The performing lab [...] Real-time, RT-PCR This assay was developed by [employer] and distributed under an Emergency Use Authorization (EUA) granted by the FDA for the qualitative detection of nucleic acids from SARS-CoV-2, Influenza A, Influenza B, and Respiratory Syncytial Virus. Provider and patient fact sheets can be found at https://www.fda.gov/media /182916/download and https://www.fda.gov/media /549697/download. Expected Result: Not Detected _ Method: Real-time, RT-PCR This assay was developed by [employer] and distributed under an Emergency Use Authorization (EUA) granted by the FDA for the qualitative detection of nucleic acids from SARS-CoV-2, Influenza A, Influenza B, and Respiratory Syncytial Virus. Provider and patient fact sheets can be found at https://www.fda.gov/media /597705/download and https://www.fda.gov/media /739957/download. Normal [facility] Comment on above: Performed By: #### A PTT, TSH5, HEMDF, LDH3, DDI2, BMP3M, ESR, FOLT3, URIC3, FEIBC, FERR3, B12, FT4M #### [facility] [address] [place] [address] #### HVAAO, ANA3, HEPAN, B2GPG, B2GPM, B2GPA #### [facility] [address] [place] [address] #### LUPUS #### The performing lab is in the report. APTTon 11-06-2021 aPTT Coag (Bld) [Time] 28.1 s Normal 20.0-30.5 [facility] Comment on above: Result Comment: NOTE : The therapeutic time for Heparin anticoagulation, based on Xa activity inhibition, is an APTT of 46-80 seconds. Performed By: #### A PTT, TSH5, HEMDF, LDH3, DDI2, BMP3M, ESR, FOLT3, URIC3, FEIBC, FERR3, B12, FT4M #### [address] [place] [address] #### HVAAO, ANA3, HEPAN, B2GPG, B2GPM, B2GPA #### [address] #### LUPUS #### The performing lab is in the report. Basic Metabolic Panelon 10-23 Anion gap [Moles/Vol] 6 mmol/L Normal 3-13 [facility] Comment on above: Performed By: #### A PTT, TSH5, HEMDF, LDH3, DDI2, BMP3M, ESR, FOLT3, URIC3, FEIBC, FERR3, B12, FT4M #### [address] [place] [address] #### HVAAO, ANA3, HEPAN, B2GPG, B2GPM, B2GPA #### [address] #### LUPUS #### The performing lab is in the report. Calcium [Mass/Vol] 9.0 mg/dL Normal 8.4-10.4 [facility] Comment on above: Performed By: #### A PTT, TSH5, HEMDF, LDH3, DDI2, BMP3M, ESR, FOLT3, URIC3, FEIBC, FERR3, B12, FT4M #### [address] [place] [address] #### HVAAO, ANA3, HEPAN, B2GPG, B2GPM, B2GPA #### [address] #### LUPUS #### The performing lab is in the report. CO2 [Moles/Vol] 28 mmol/L Normal 22-30 [facility] Comment on above: Performed By: #### A PTT, TSH5, HEMDF, LDH3, DDI2, BMP3M, ESR, FOLT3, URIC3, FEIBC, FERR3, B12, FT4M #### [place] [address] [place] [address] #### HVAAO, ANA3, HEPAN, B2GPG, B2GPM, B2GPA #### [address] #### LUPUS #### The performing lab is in the report. Glucose [Mass/Vol] 105 mg/dL High 70-100 [facility] Comment on above: Performed By: #### A PTT, TSH5, HEMDF, LDH3, DDI2, BMP3M, ESR, FOLT3, URIC3, FEIBC, FERR3, B12, FT4M #### [address] [place] #### HVAAO, ANA3, HEPAN, B2GPG, B2GPM, B2GPA #### [address] #### LUPUS #### The performing lab is in the report. Urea nitrogen [Mass/Vol] 14 mg/dL Normal 9-20 [facility] Comment on above: Performed By: #### A PTT, TSH5, HEMDF, LDH3, DDI2, BMP3M, ESR, FOLT3, URIC3, FEIBC, FERR3, B12, FT4M #### [address] [place] [address] #### HVAAO, ANA3, HEPAN, B2GPG, B2GPM, B2GPA #### [address] #### LUPUS #### The performing lab is in the report. Creatinine [Mass/Vol] 0.90 mg/dL Normal 0.52-1.25 [facility] Comment on above: Performed By: #### A PTT, TSH5, HEMDF, LDH3, DDI2, BMP3M, ESR, FOLT3, URIC3, FEIBC, FERR3, B12, FT4M #### [facility] [address] [place] [address] #### HVAAO, ANA3, HEPAN, B2GPG, B2GPM, B2GPA #### [address] [address] #### LUPUS #### The performing lab is in the report. GFR/1.73 sq M.predicted among blacks MDRD (S/P/Bld) [Vol rate/Area] 70.7 mL/min/{1.73_m2} Normal >60 [facility] Comment on above: Performed By: #### A PTT, TSH5, HEMDF, LDH3, DDI2, BMP3M, ESR, FOLT3, URIC3, FEIBC, FERR3, B12, FT4M #### [facility] [address] [place] [address] #### HVAAO, ANA3, HEPAN, B2GPG, B2GPM, B2GPA #### [address] [address] #### LUPUS #### The performing lab is in the report. GFR/1.73 sq M.predicted among non-blacks MDRD (S/P/Bld) [Vol rate/Area] 61.0 mL/min/{1.73_m2} Normal >60 [facility] Comment on above: Result Comment: KDIG [...] FOLT3, URIC3, FEIBC, FERR3, B12, FT4M #### Melissa [address] [place] [address] #### HVAAO, ANA3, HEPAN, B2GPG, B2GPM, B2GPA #### [address] #### LUPUS #### The performing lab is in the report. Potassium [Moles/Vol] 3.6 mmol/L Normal 3.5-5.1 [facility] Comment on above: Performed By: #### A PTT, TSH5, HEMDF, LDH3, DDI2, BMP3M, ESR, FOLT3, URIC3, FEIBC, FERR3, B12, FT4M #### [address] [place] #### HVAAO, ANA3, HEPAN, B2GPG, B2GPM, B2GPA #### [address] #### LUPUS #### The performing lab is in the report. Chloride [Moles/Vol] 108 mmol/L High 98-107 [facility] Comment on above: Performed By: #### A PTT, TSH5, HEMDF, LDH3, DDI2, BMP3M, ESR, FOLT3, URIC3, FEIBC, FERR3, B12, FT4M #### [address] [place] [address] #### HVAAO, ANA3, HEPAN, B2GPG, B2GPM, B2GPA #### [address] #### LUPUS #### The performing lab is in the report. Sodium [Moles/Vol] 141 mmol/L Normal 135-145 [facility] Comment on above: Performed By: #### A PTT, TSH5, HEMDF, LDH3, DDI2, BMP3M, ESR, FOLT3, URIC3, FEIBC, FERR3, B12, FT4M #### [address] [place] [address] #### HVAAO, ANA3, HEPAN, B2GPG, B2GPM, B2GPA #### [address] #### LUPUS #### The performing lab is in the report. Hemogram w/ Autodiffon 11-06 Abs Baso Cnt 0.1 10*3/uL Normal 0.0-0.2 [facility] Comment on above: Performed By: #### A PTT, TSH5, HEMDF, LDH3, DDI2, BMP3M, ESR, FOLT3, URIC3, FEIBC, FERR3, B12, FT4M #### [address] [place] [address] #### HVAAO, ANA3, HEPAN, B2GPG, B2GPM, B2GPA #### [address] #### LUPUS #### The performing lab is in the report. Abs Neutrophile Cnt 5.9 10*3/uL Normal 1.8-7.0 [facility] Comment on above: Performed By: #### A PTT, TSH5, HEMDF, LDH3, DDI2, BMP3M, ESR, FOLT3, URIC3, FEIBC, FERR3, B12, FT4M #### [address] [place] [address] #### HVAAO, ANA3, HEPAN, B2GPG, B2GPM, B2GPA #### [address] #### LUPUS #### The performing lab is in the report. Basophils/100 WBC (Bld) 0.7 % Normal 0.0-2.0 [facility] Comment on above: Performed By: #### A PTT, TSH5, HEMDF, LDH3, DDI2, BMP3M, ESR, FOLT3, URIC3, FEIBC, FERR3, B12, FT4M #### [address] [place] [address] #### HVAAO, ANA3, HEPAN, B2GPG, B2GPM, B2GPA #### [address] #### LUPUS #### The performing lab is in the report. Eosinophils (Bld) [#/Vol] 0.3 10*3/uL Normal 0.0-0.5 [facility] Comment on above: Performed By: #### A PTT, TSH5, HEMDF, LDH3, DDI2, BMP3M, ESR, FOLT3, URIC3, FEIBC, FERR3, B12, FT4M #### [facility] [address] [place] [address] #### HVAAO, ANA3, HEPAN, B2GPG, B2GPM, B2GPA #### [address] #### LUPUS #### The performing lab is in the report. Eosinophils/100 WBC (Bld) 3.7 % Normal 1.0-6.0 [facility] Comment on above: Performed By: #### A PTT, TSH5, HEMDF, LDH3, DDI2, BMP3M, ESR, FOLT3, URIC3, FEIBC, FERR3, B12, FT4M #### [facility] [address] [facility] [address] [place] #### HVAAO, ANA3, HEPAN, B2GPG, B2GPM, B2GPA #### [address] #### LUPUS #### The performing lab is in the report. Erythrocyte distribution width (RBC) [Ratio] 15.2 % High 11.5-14.5 [facility] Comment on above: Performed By: #### A PTT, TSH5, HEMDF, LDH3, DDI2, BMP3M, ESR, FOLT3, URIC3, FEIBC, FERR3, B12, FT4M #### [facility] [address] [place] #### HVAAO, ANA3, HEPAN, B2GPG, B2GPM, B2GPA #### [address] #### LUPUS #### The performing lab is in the report. Granulocytes/100 WBC (Bld) 65.8 % Normal 40.0-80.0 [facility] Comment on above: Performed By: #### A PTT, TSH5, HEMDF, LDH3, DDI2, BMP3M, ESR, FOLT3, URIC3, FEIBC, FERR3, B12, FT4M #### [facility] [address] [place] [address] #### HVAAO, ANA3, HEPAN, B2GPG, B2GPM, B2GPA #### [address] #### LUPUS #### The performing lab is in the report. Hematocrit (Bld) [Volume fraction] 39.8 % Normal 35.0-47.0 [facility] Comment on above: Performed By: #### A PTT, TSH5, HEMDF, LDH3, DDI2, BMP3M, ESR, FOLT3, URIC3, FEIBC, FERR3, B12, FT4M #### [facility] [address] [place] [address] #### HVAAO, ANA3, HEPAN, B2GPG, B2GPM, B2GPA #### [address] #### LUPUS #### The performing lab is in the report. Hemoglobin (Bld) [Mass/Vol] 13.2 g/dL Normal 11.7-16.0 [facility] Comment on above: Performed By: #### A PTT, TSH5, HEMDF, LDH3, DDI2, BMP3M, ESR, FOLT3, URIC3, FEIBC, FERR3, B12, FT4M #### [facility] [address] [place] [address] #### HVAAO, ANA3, HEPAN, B2GPG, B2GPM, B2GPA #### [address] #### LUPUS #### The performing lab is in the report. Lymphocytes (Bld) [#/Vol] 2.0 10*3/uL Normal 1.0-4.3 [facility] Comment on above: Performed By: #### A PTT, TSH5, HEMDF, LDH3, DDI2, BMP3M, ESR, FOLT3, URIC3, FEIBC, FERR3, B12, FT4M #### [facility] [address] [place] [address] #### HVAAO, ANA3, HEPAN, B2GPG, B2GPM, B2GPA #### [address] #### LUPUS #### The performing lab is in the report. Lymphocytes/100 WBC (Bld) 22.0 % Normal 20.0-40.0 [facility] Comment on above: Performed By: #### A PTT, TSH5, HEMDF, LDH3, DDI2, BMP3M, ESR, FOLT3, URIC3, FEIBC, FERR3, B12, FT4M #### [facility] [address] [facility] [place] #### HVAAO, ANA3, HEPAN, B2GPG, B2GPM, B2GPA #### [address] #### LUPUS #### The performing lab is in the report. MCH (RBC) [Entitic mass] 30.1 pg Normal 26.0-34.0 [facility] Comment on above: Performed By: #### A PTT, TSH5, HEMDF, LDH3, DDI2, BMP3M, ESR, FOLT3, URIC3, FEIBC, FERR3, B12, FT4M #### [facility] [address] [place] #### HVAAO, ANA3, HEPAN, B2GPG, B2GPM, B2GPA #### [address] #### LUPUS #### The performing lab is in the report. MCHC 33.2 % Normal 32.0-36.0 [facility] Comment on above: Performed By: #### A PTT, TSH5, HEMDF, LDH3, DDI2, BMP3M, ESR, FOLT3, URIC3, FEIBC, FERR3, B12, FT4M #### [place] [place] [address] #### HVAAO, ANA3, HEPAN, B2GPG, B2GPM, B2GPA #### [address] #### LUPUS #### The performing lab is in the report. MCV (RBC) [Entitic vol] 90.6 fL Normal 79.0-98.0 [facility] Comment on above: Performed By: #### A PTT, TSH5, HEMDF, LDH3, DDI2, BMP3M, ESR, FOLT3, URIC3, FEIBC, FERR3, B12, FT4M #### [address] [place] [address] #### HVAAO, ANA3, HEPAN, B2GPG, B2GPM, B2GPA #### [address] #### LUPUS #### The performing lab is in the report. Monocytes (Bld) [#/Vol] 0.7 10*3/uL Normal 0.0-0.8 [facility] Comment on above: Performed By: #### A PTT, TSH5, HEMDF, LDH3, DDI2, BMP3M, ESR, FOLT3, URIC3, FEIBC, FERR3, B12, FT4M #### [address] [facility] [place] #### HVAAO, ANA3, HEPAN, B2GPG, B2GPM, B2GPA #### [address] #### LUPUS #### The performing lab is in the report. Monocytes/100 WBC (Bld) 7.8 % Normal 2.0-10.0 [facility] Comment on above: Performed By: #### A PTT, TSH5, HEMDF, LDH3, DDI2, BMP3M, ESR, FOLT3, URIC3, FEIBC, FERR3, B12, FT4M #### [place] [address] [place] [address] #### HVAAO, ANA3, HEPAN, B2GPG, B2GPM, B2GPA #### [address] #### LUPUS #### The performing lab is in the report. Platelet mean volume (Bld) [Entitic vol] 8.7 fL Normal 7.4-10.4 [facility] Comment on above: Performed By: #### A PTT, TSH5, HEMDF, LDH3, DDI2, BMP3M, ESR, FOLT3, URIC3, FEIBC, FERR3, B12, FT4M #### [address] [place] #### HVAAO, ANA3, HEPAN, B2GPG, B2GPM, B2GPA #### [address] #### LUPUS #### The performing lab is in the report. Platelets (Bld) [#/Vol] 207 10*3/uL Normal 140-440 [facility] Comment on above: Performed By: #### A PTT, TSH5, HEMDF, LDH3, DDI2, BMP3M, ESR, FOLT3, URIC3, FEIBC, FERR3, B12, FT4M #### [address] [place] #### HVAAO, ANA3, HEPAN, B2GPG, B2GPM, B2GPA #### [address] #### LUPUS #### The performing lab is in the report. RBC (Bld) [#/Vol] 4.39 10*6/uL Normal 3.80-5.20 [facility] Comment on above: Performed By: #### A PTT, TSH5, HEMDF, LDH3, DDI2, BMP3M, ESR, FOLT3, URIC3, FEIBC, FERR3, B12, FT4M #### [facility] [address] [place] [address] #### HVAAO, ANA3, HEPAN, B2GPG, B2GPM, B2GPA #### [address] #### LUPUS #### The performing lab is in the report. WBC (Bld) [#/Vol] 9.0 10*3/uL Normal 3.6-10.7 [facility] Comment on above: Performed By: #### A PTT, TSH5, HEMDF, LDH3, DDI2, BMP3M, ESR, FOLT3, URIC3, FEIBC, FERR3, B12, FT4M #### [address] [place] [address] #### HVAAO, ANA3, HEPAN, B2GPG, B2GPM, B2GPA #### [address] #### LUPUS #### The performing lab is in the report. APTTon 11-05-2021 aPTT Coag (Bld) [Time] 58.6 s High 20.0-30.5 [facility] Comment on above: Result Comment: NOTE : The therapeutic time for Heparin anticoagulation, based on Xa activity inhibition, is an APTT of 46-80 seconds. Performed By: #### A PTT, TSH5, HEMDF, LDH3, DDI2, BMP3M, ESR, FOLT3, URIC3, FEIBC, FERR3, B12, FT4M ####[address] [place] [address]#### HVAAO, ANA3, HEPAN, B2GPG, B2GPM, B2GPA ####[address] #### LUPUS ####The performing lab is in the report. aPTT Coag (Bld) [Time] 65.8 s High 20.0-30.5 [facility] Comment on above: Result Comment: NOTE : The therapeutic time for Heparin anticoagulation, based on Xa activity inhibition, is an APTT of 46-80 seconds. Performed By: #### A PTT, TSH5, HEMDF, LDH3, DDI2, BMP3M, ESR, FOLT3, URIC3, FEIBC, FERR3, B12, FT4M #### [employer] [address] [place] [address] #### HVAAO, ANA3, HEPAN, B2GPG, B2GPM, B2GPA #### [facility] [employer] [facility] [address] [place], [place] #### LUPUS #### The performing lab is in the report. Acute Hepatitis Panelon 10-23 Hep C Antibody Not detected Normal Not Detected [facility] Comment on above: Result Comment: Patients with DETECTED Hepatitis C Ab results should have a new specimen submitted for supplemental testing with a Hepatitis C Quantitative RNA assay (viral load), if clinically indicated. Performed By: #### A PTT, TSH5, HEMDF, LDH3, DDI2, BMP3M, ESR, FOLT3, URIC3, FEIBC, FERR3, B12, FT4M ####[employer] [id number] [place] [address]#### HVAAO, ANA3, HEPAN, B2GPG, B2GPM, B2GPA ####[employer] [address] #### LUPUS ####The performing lab is in the report. Hep A Virus Ab,IgM Not detected Normal Not Detected [facility] Comment on above: Performed By: #### A PTT, TSH5, HEMDF, LDH3, DDI2, BMP3M, ESR, FOLT3, URIC3, FEIBC, FERR3, B12, FT4M ####[employer] [id number] [facility] [place] [facility] [place] [address]#### HVAAO, ANA3, HEPAN, B2GPG, B2GPM, B2GPA ####[employer] [id number] [place] [address]#### LUPUS ####The performing lab is in the report. Hep B Surface Ag Not detected Normal Not Detected [facility] Comment on above: Performed By: #### A PTT, TSH5, HEMDF, LDH3, DDI2, BMP3M, ESR, FOLT3, URIC3, FEIBC, FERR3, B12, FT4M ####[address] [place] [address]#### HVAAO, ANA3, HEPAN, B2GPG, B2GPM, B2GPA ####[address] #### LUPUS ####The performing lab is in the report. Hep B Core IgM Not detected Normal Not Detected [facility] Comment on above: Performed By: #### A PTT, TSH5, HEMDF, LDH3, DDI2, BMP3M, ESR, FOLT3, URIC3, FEIBC, FERR3, B12, FT4M ####[address] [place] [address]#### HVAAO, ANA3, HEPAN, B2GPG, B2GPM, B2GPA ####[address] #### LUPUS ####The performing lab is in the report. Basic Metabolic Panelon 10-23 Calcium [Mass/Vol] 9.1 mg/dL Normal 8.4-10.4 [facility] Comment on above: Performed By: #### A PTT, TSH5, HEMDF, LDH3, DDI2, BMP3M, ESR, FOLT3, URIC3, FEIBC, FERR3, B12, FT4M #### [facility] [address] [facility] [place] [facility] [place] [address] #### HVAAO, ANA3, HEPAN, B2GPG, B2GPM, B2GPA #### [address] #### LUPUS #### The performing lab is in the report. Glucose [Mass/Vol] 110 mg/dL High 70-100 [facility] Comment on above: Performed By: #### A PTT, TSH5, HEMDF, LDH3, DDI2, BMP3M, ESR, FOLT3, URIC3, FEIBC, FERR3, B12, FT4M #### [place] [address] [place] [address] #### HVAAO, ANA3, HEPAN, B2GPG, B2GPM, B2GPA #### [address] #### LUPUS #### The performing lab is in the report. Urea nitrogen [Mass/Vol] 13 mg/dL Normal 9-20 [facility] Comment on above: Performed By: #### A PTT, TSH5, HEMDF, LDH3, DDI2, BMP3M, ESR, FOLT3, URIC3, FEIBC, FERR3, B12, FT4M #### [address] [place] #### HVAAO, ANA3, HEPAN, B2GPG, B2GPM, B2GPA #### [address] #### LUPUS #### The performing lab is in the report. Anion gap [Moles/Vol] 3 mmol/L Normal 3-13 [facility] Comment on above: Performed By: #### A PTT, TSH5, HEMDF, LDH3, DDI2, BMP3M, ESR, FOLT3, URIC3, FEIBC, FERR3, B12, FT4M #### [address] [place] #### HVAAO, ANA3, HEPAN, B2GPG, B2GPM, B2GPA #### [address] #### LUPUS #### The performing lab is in the report. CO2 [Moles/Vol] 29 mmol/L Normal 22-30 [facility] Comment on above: Performed By: #### A PTT, TSH5, HEMDF, LDH3, DDI2, BMP3M, ESR, FOLT3, URIC3, FEIBC, FERR3, B12, FT4M #### [address] [place] #### HVAAO, ANA3, HEPAN, B2GPG, B2GPM, B2GPA #### [address] #### LUPUS #### The performing lab is in the report. Creatinine [Mass/Vol] 0.96 mg/dL Normal 0.52-1.25 [facility] Comment on above: Performed By: #### A PTT, TSH5, HEMDF, LDH3, DDI2, BMP3M, ESR, FOLT3, URIC3, FEIBC, FERR3, B12, FT4M #### [facility] [address] [place] [address] #### HVAAO, ANA3, HEPAN, B2GPG, B2GPM, B2GPA #### [address] #### LUPUS #### The performing lab is in the report. GFR/1.73 sq M.predicted among blacks MDRD (S/P/Bld) [Vol rate/Area] 65.4 mL/min/{1.73_m2} Normal >60 [facility] Comment on above: Performed By: #### A PTT, TSH5, HEMDF, LDH3, DDI2, BMP3M, ESR, FOLT3, URIC3, FEIBC, FERR3, B12, FT4M #### [facility] [address] [place] #### HVAAO, ANA3, HEPAN, B2GPG, B2GPM, B2GPA #### [address] #### LUPUS #### The performing lab is in the report. GFR/1.73 sq M.predicted among non-blacks MDRD (S/P/Bld) [Vol rate/Area] 56.4 mL/min/{1.73_m2} Abnormal >60 [facility] Comment on above: Result Comment: KDIG [...] FOLT3, URIC3, FEIBC, FERR3, B12, FT4M #### [address] [place] [address] #### HVAAO, ANA3, HEPAN, B2GPG, B2GPM, B2GPA #### [address] #### LUPUS #### The performing lab is in the report. Chloride [Moles/Vol] 107 mmol/L Normal 98-107 [facility] Comment on above: Performed By: #### A PTT, TSH5, HEMDF, LDH3, DDI2, BMP3M, ESR, FOLT3, URIC3, FEIBC, FERR3, B12, FT4M #### [facility] [address] [facility] [place] [facility] [place] [address] #### HVAAO, ANA3, HEPAN, B2GPG, B2GPM, B2GPA #### [address] [address] #### LUPUS #### The performing lab is in the report. Potassium [Moles/Vol] 3.8 mmol/L Normal 3.5-5.1 [facility] Comment on above: Performed By: #### A PTT, TSH5, HEMDF, LDH3, DDI2, BMP3M, ESR, FOLT3, URIC3, FEIBC, FERR3, B12, FT4M #### [address] [place] [address] #### HVAAO, ANA3, HEPAN, B2GPG, B2GPM, B2GPA #### [facility] [address] [place], [place] #### LUPUS #### The performing lab is in the report. Sodium [Moles/Vol] 139 mmol/L Normal 135-145 [facility] Comment on above: Performed By: #### A PTT, TSH5, HEMDF, LDH3, DDI2, BMP3M, ESR, FOLT3, URIC3, FEIBC, FERR3, B12, FT4M #### [facility] [address] [place] [address] #### HVAAO, ANA3, HEPAN, B2GPG, B2GPM, B2GPA #### [facility] [address] [place], [place] #### LUPUS #### The performing lab is in the report. Beta-2 Glycoprotein I IgAon 11-05-2021 Beta-2 Glycoprotein I IgA < 2.0 Normal [facility] Comment on above: Result Comment: Inte rpretive Information: Results equal to or greater than 20 U/mL = POSITIVE Results less than 20 U/mL = NEGATIVE Performed By: #### A PTT, TSH5, HEMDF, LDH3, DDI2, BMP3M, ESR, FOLT3, URIC3, FEIBC, FERR3, B12, FT4M ####[facility] [place] [address]#### HVAAO, ANA3, HEPAN, B2GPG, B2GPM, B2GPA ####[facility] [place], [place] #### LUPUS ####The performing lab is in the report. Beta-2 Glycoprotein I IgGon 11-05-2021 Beta-2 Glycoprotein I IgG < 1.4 Normal [facility] Comment on above: Result Comment: Inte rpretive Information: Results equal to or greater than 20 U/mL = POSITIVE Results less than 20 U/mL = NEGATIVE Performed By: #### A PTT, TSH5, HEMDF, LDH3, DDI2, BMP3M, ESR, FOLT3, URIC3, FEIBC, FERR3, B12, FT4M ####[address] [place] [address]#### HVAAO, ANA3, HEPAN, B2GPG, B2GPM, B2GPA ####[address] [id number]#### LUPUS ####The performing lab is in the report. Beta-2 Glycoprotein I IgMon 11-05-2021 Beta-2 Glycoprotein I IgM 2.4 U/mL Normal [facility] Comment on above: Result Comment: Inte rpretive Information: Results equal to or greater than 20 U/mL = POSITIVE Results less than 20 U/mL = NEGATIVE Performed By: #### A PTT, TSH5, HEMDF, LDH3, DDI2, BMP3M, ESR, FOLT3, URIC3, FEIBC, FERR3, B12, FT4M ####[address] [place] [address]#### HVAAO, ANA3, HEPAN, B2GPG, B2GPM, B2GPA ####[address] [id number]#### LUPUS ####The performing lab is in the report. D-Dimer, Innovanceon 022 D-Dimer, [employer] 2.22 mg/L High <0.19-0.50 [facility] Comment on above: Result Comment: Inno williamson D-Dimer values of <0.50 mg/L FEU can be used in combination with a pre-test probability model (e.g. Well's) to exclude pulmonary embolism (PE) disease, as well as an aid in the diagnosis of deep vein thrombosis (DVT). Performed By: #### A PTT, TSH5, HEMDF, LDH3, DDI2, BMP3M, ESR, FOLT3, URIC3, FEIBC, FERR3, B12, FT4M ####[address] [place] [address]#### HVAAO, ANA3, HEPAN, B2GPG, B2GPM, B2GPA ####[place] [id number] [place], [place] #### LUPUS ####The performing lab is in the report. Ferritinon 11-05-2021 Ferritin [Mass/Vol] 76 ng/mL Normal 11-264 [facility] Comment on above: Performed By: #### A PTT, TSH5, HEMDF, LDH3, DDI2, BMP3M, ESR, FOLT3, URIC3, FEIBC, FERR3, B12, FT4M #### [facility] [address] [place] [address] #### HVAAO, ANA3, HEPAN, B2GPG, B2GPM, B2GPA #### [address] #### LUPUS #### The performing lab is in the report. Folateon 11-05-2021 Folate 9.8 ng/mL Normal [facility] Comment on above: Result Comment: >2.8 Performed By: #### A PTT, TSH5, HEMDF, LDH3, DDI2, BMP3M, ESR, FOLT3, URIC3, FEIBC, FERR3, B12, FT4M #### [facility] [address] [place] [address] #### HVAAO, ANA3, HEPAN, B2GPG, B2GPM, B2GPA #### [address] #### LUPUS #### The performing lab is in the report. Free T4on 11-05-2021 Free T4 [Mass/Vol] 1.21 ng/dL Normal 0.78-2.19 [facility] Comment on above: Performed By: #### A PTT, TSH5, HEMDF, LDH3, DDI2, BMP3M, ESR, FOLT3, URIC3, FEIBC, FERR3, B12, FT4M ####[facility] [place] [address]#### HVAAO, ANA3, HEPAN, B2GPG, B2GPM, B2GPA ####[place] [id number] [place], [place] #### LUPUS ####The performing lab is in the report. HIV Ag - Abon 11-05-2021 HIV 1,2 Combo Antigen/Antibody Non-Reactive Normal Non-Reactiv e [facility] Comment on above: Result Comment: The specimen was non-reactive for HIV-1 and HIV-2 antibodies and p24 antigen using an FDA-cleared 4th generation HIV test. Based on this non-reactive screen result, further reflexive testing was not indicated and was, therefore, not performed. Performed By: #### A PTT, TSH5, HEMDF, LDH3, DDI2, BMP3M, ESR, FOLT3, URIC3, FEIBC, FERR3, B12, FT4M ####[facility] [place] [address]#### HVAAO, ANA3, HEPAN, B2GPG, B2GPM, B2GPA ####[address] #### LUPUS ####The performing lab is in the report. Hemogram w/ Autodiffon 11-05 Abs Baso Cnt 0.1 10*3/uL Normal 0.0-0.2 [facility] Comment on above: Performed By: #### A PTT, TSH5, HEMDF, LDH3, DDI2, BMP3M, ESR, FOLT3, URIC3, FEIBC, FERR3, B12, FT4M #### [facility] [address] [place] [address] #### HVAAO, ANA3, HEPAN, B2GPG, B2GPM, B2GPA #### [facility] [address] [place], [place] #### LUPUS #### The performing lab is in the report. Abs Neutrophile Cnt 5.4 10*3/uL Normal 1.8-7.0 [facility] Comment on above: Performed By: #### A PTT, TSH5, HEMDF, LDH3, DDI2, BMP3M, ESR, FOLT3, URIC3, FEIBC, FERR3, B12, FT4M #### [address] [place] [address] #### HVAAO, ANA3, HEPAN, B2GPG, B2GPM, B2GPA #### [address] #### LUPUS #### The performing lab is in the report. Basophils/100 WBC (Bld) 1.0 % Normal 0.0-2.0 [facility] Comment on above: Performed By: #### A PTT, TSH5, HEMDF, LDH3, DDI2, BMP3M, ESR, FOLT3, URIC3, FEIBC, FERR3, B12, FT4M #### [address] [place] [address] #### HVAAO, ANA3, HEPAN, B2GPG, B2GPM, B2GPA #### [address] #### LUPUS #### The performing lab is in the report. Eosinophils (Bld) [#/Vol] 0.4 10*3/uL Normal 0.0-0.5 [facility] Comment on above: Performed By: #### A PTT, TSH5, HEMDF, LDH3, DDI2, BMP3M, ESR, FOLT3, URIC3, FEIBC, FERR3, B12, FT4M #### [address] [place] #### HVAAO, ANA3, HEPAN, B2GPG, B2GPM, B2GPA #### [address] #### LUPUS #### The performing lab is in the report. Eosinophils/100 WBC (Bld) 4.9 % Normal 1.0-6.0 [facility] Comment on above: Performed By: #### A PTT, TSH5, HEMDF, LDH3, DDI2, BMP3M, ESR, FOLT3, URIC3, FEIBC, FERR3, B12, FT4M #### [address] [place] [address] #### HVAAO, ANA3, HEPAN, B2GPG, B2GPM, B2GPA #### [address] #### LUPUS #### The performing lab is in the report. Erythrocyte distribution width (RBC) [Ratio] 15.3 % High 11.5-14.5 [facility] Comment on above: Performed By: #### A PTT, TSH5, HEMDF, LDH3, DDI2, BMP3M, ESR, FOLT3, URIC3, FEIBC, FERR3, B12, FT4M #### [address] [place] [address] #### HVAAO, ANA3, HEPAN, B2GPG, B2GPM, B2GPA #### [address] #### LUPUS #### The performing lab is in the report. Granulocytes/100 WBC (Bld) 60.5 % Normal 40.0-80.0 [facility] Comment on above: Performed By: #### A PTT, TSH5, HEMDF, LDH3, DDI2, BMP3M, ESR, FOLT3, URIC3, FEIBC, FERR3, B12, FT4M #### [address] [place] [address] #### HVAAO, ANA3, HEPAN, B2GPG, B2GPM, B2GPA #### [address] #### LUPUS #### The performing lab is in the report. Hematocrit (Bld) [Volume fraction] 41.4 % Normal 35.0-47.0 [facility] Comment on above: Performed By: #### A PTT, TSH5, HEMDF, LDH3, DDI2, BMP3M, ESR, FOLT3, URIC3, FEIBC, FERR3, B12, FT4M #### [address] [place], [place] #### HVAAO, ANA3, HEPAN, B2GPG, B2GPM, B2GPA #### [address] #### LUPUS #### The performing lab is in the report. Hemoglobin (Bld) [Mass/Vol] 13.8 g/dL Normal 11.7-16.0 [facility] Comment on above: Performed By: #### A PTT, TSH5, HEMDF, LDH3, DDI2, BMP3M, ESR, FOLT3, URIC3, FEIBC, FERR3, B12, FT4M #### [address] [place] [address] #### HVAAO, ANA3, HEPAN, B2GPG, B2GPM, B2GPA #### [address] #### LUPUS #### The performing lab is in the report. Lymphocytes (Bld) [#/Vol] 2.3 10*3/uL Normal 1.0-4.3 [facility] Comment on above: Performed By: #### A PTT, TSH5, HEMDF, LDH3, DDI2, BMP3M, ESR, FOLT3, URIC3, FEIBC, FERR3, B12, FT4M #### [address] [place], [place] #### HVAAO, ANA3, HEPAN, B2GPG, B2GPM, B2GPA #### [address] #### LUPUS #### The performing lab is in the report. Lymphocytes/100 WBC (Bld) 25.8 % Normal 20.0-40.0 [facility] Comment on above: Performed By: #### A PTT, TSH5, HEMDF, LDH3, DDI2, BMP3M, ESR, FOLT3, URIC3, FEIBC, FERR3, B12, FT4M #### [address] [place], [place] #### HVAAO, ANA3, HEPAN, B2GPG, B2GPM, B2GPA #### [address] #### LUPUS #### The performing lab is in the report. MCH (RBC) [Entitic mass] 30.6 pg Normal 26.0-34.0 [facility] Comment on above: Performed By: #### A PTT, TSH5, HEMDF, LDH3, DDI2, BMP3M, ESR, FOLT3, URIC3, FEIBC, FERR3, B12, FT4M #### [facility] [address] [place] [address] #### HVAAO, ANA3, HEPAN, B2GPG, B2GPM, B2GPA #### [address] #### LUPUS #### The performing lab is in the report. MCHC 33.4 % Normal 32.0-36.0 [facility] Comment on above: Performed By: #### A PTT, TSH5, HEMDF, LDH3, DDI2, BMP3M, ESR, FOLT3, URIC3, FEIBC, FERR3, B12, FT4M #### [facility] [address] [place] [address] #### HVAAO, ANA3, HEPAN, B2GPG, B2GPM, B2GPA #### [address] #### LUPUS #### The performing lab is in the report. MCV (RBC) [Entitic vol] 91.7 fL Normal 79.0-98.0 [facility] Comment on above: Performed By: #### A PTT, TSH5, HEMDF, LDH3, DDI2, BMP3M, ESR, FOLT3, URIC3, FEIBC, FERR3, B12, FT4M #### [facility] [address] [place], [place] #### HVAAO, ANA3, HEPAN, B2GPG, B2GPM, B2GPA #### [address] #### LUPUS #### The performing lab is in the report. Monocytes (Bld) [#/Vol] 0.7 10*3/uL Normal 0.0-0.8 [facility] Comment on above: Performed By: #### A PTT, TSH5, HEMDF, LDH3, DDI2, BMP3M, ESR, FOLT3, URIC3, FEIBC, FERR3, B12, FT4M #### [place] [address] [place] [address] #### HVAAO, ANA3, HEPAN, B2GPG, B2GPM, B2GPA #### [address] #### LUPUS #### The performing lab is in the report. Monocytes/100 WBC (Bld) 7.8 % Normal 2.0-10.0 [facility] Comment on above: Performed By: #### A PTT, TSH5, HEMDF, LDH3, DDI2, BMP3M, ESR, FOLT3, URIC3, FEIBC, FERR3, B12, FT4M #### [address] [place] [address] #### HVAAO, ANA3, HEPAN, B2GPG, B2GPM, B2GPA #### [address] #### LUPUS #### The performing lab is in the report. Platelet mean volume (Bld) [Entitic vol] 9.0 fL Normal 7.4-10.4 [facility] Comment on above: Performed By: #### A PTT, TSH5, HEMDF, LDH3, DDI2, BMP3M, ESR, FOLT3, URIC3, FEIBC, FERR3, B12, FT4M #### [address] [place] [address] #### HVAAO, ANA3, HEPAN, B2GPG, B2GPM, B2GPA #### [address] #### LUPUS #### The performing lab is in the report. Platelets (Bld) [#/Vol] 221 10*3/uL Normal 140-440 [facility] Comment on above: Performed By: #### A PTT, TSH5, HEMDF, LDH3, DDI2, BMP3M, ESR, FOLT3, URIC3, FEIBC, FERR3, B12, FT4M #### [address] [place] [address] #### HVAAO, ANA3, HEPAN, B2GPG, B2GPM, B2GPA #### [address] #### LUPUS #### The performing lab is in the report. RBC (Bld) [#/Vol] 4.51 10*6/uL Normal 3.80-5.20 [facility] Comment on above: Performed By: #### A PTT, TSH5, HEMDF, LDH3, DDI2, BMP3M, ESR, FOLT3, URIC3, FEIBC, FERR3, B12, FT4M #### [address] [place] [address] #### HVAAO, ANA3, HEPAN, B2GPG, B2GPM, B2GPA #### [address] #### LUPUS #### The performing lab is in the report. WBC (Bld) [#/Vol] 8.9 10*3/uL Normal 3.6-10.7 [facility] Comment on above: Performed By: #### A PTT, TSH5, HEMDF, LDH3, DDI2, BMP3M, ESR, FOLT3, URIC3, FEIBC, FERR3, B12, FT4M #### [address] [place] #### HVAAO, ANA3, HEPAN, B2GPG, B2GPM, B2GPA #### [address] #### LUPUS #### The performing lab is in the report. Iron AND TIBCon 11-05-2021 Saturation 20 % Normal 15-50 [facility] Comment on above: Performed By: #### A PTT, TSH5, HEMDF, LDH3, DDI2, BMP3M, ESR, FOLT3, URIC3, FEIBC, FERR3, B12, FT4M ####[address] [place] [address]#### HVAAO, ANA3, HEPAN, B2GPG, B2GPM, B2GPA ####[address] #### LUPUS ####The performing lab is in the report. Total Iron Binding Cap. 296 ug/dL Normal 261-497 [facility] Comment on above: Performed By: #### A PTT, TSH5, HEMDF, LDH3, DDI2, BMP3M, ESR, FOLT3, URIC3, FEIBC, FERR3, B12, FT4M ####[address] [place], [place] #### HVAAO, ANA3, HEPAN, B2GPG, B2GPM, B2GPA ####[address] #### LUPUS ####The performing lab is in the report. Iron, Total 59 ug/dL Normal 37-170 [facility] Comment on above: Performed By: #### A PTT, TSH5, HEMDF, LDH3, DDI2, BMP3M, ESR, FOLT3, URIC3, FEIBC, FERR3, B12, FT4M ####[address] [place], [place] #### HVAAO, ANA3, HEPAN, B2GPG, B2GPM, B2GPA ####[address] #### LUPUS ####The performing lab is in the report. LDHon 11-05-2021 LDH 259 U/L High 120-246 [facility] Comment on above: Performed By: #### A PTT, TSH5, HEMDF, LDH3, DDI2, BMP3M, ESR, FOLT3, URIC3, FEIBC, FERR3, B12, FT4M #### [facility] [address] [facility] [place] [facility] [place] [address] #### HVAAO, ANA3, HEPAN, B2GPG, B2GPM, B2GPA #### [address] #### LUPUS #### The performing lab is in the report. Sed Rateon 11-05-2021 Sed Rate 47 mm/h High 0-20 [facility] Comment on above: Performed By: #### A PTT, TSH5, HEMDF, LDH3, DDI2, BMP3M, ESR, FOLT3, URIC3, FEIBC, FERR3, B12, FT4M #### [facility] [address] [place] [address] #### HVAAO, ANA3, HEPAN, B2GPG, B2GPM, B2GPA #### [address] #### LUPUS #### The performing lab is in the report. Thyroid Stim. Hormoneon 10-23 Thyroid Stim. Hormone 3.596 u[IU]/mL Normal 0.465-4.68 0 [facility] Comment on above: Performed By: #### A PTT, TSH5, HEMDF, LDH3, DDI2, BMP3M, ESR, FOLT3, URIC3, FEIBC, FERR3, B12, FT4M #### [facility] [address] [place] [address] #### HVAAO, ANA3, HEPAN, B2GPG, B2GPM, B2GPA #### [address] #### LUPUS #### The performing lab is in the report. Uric Acidon 11-05-2021 Urate [Mass/Vol] 7.3 mg/dL Normal 3.5-8.5 [facility] Comment on above: Performed By: #### A PTT, TSH5, HEMDF, LDH3, DDI2, BMP3M, ESR, FOLT3, URIC3, FEIBC, FERR3, B12, FT4M #### [facility] [address] [place] [address] #### HVAAO, ANA3, HEPAN, B2GPG, B2GPM, B2GPA #### [facility] [address] [place], [place] #### LUPUS #### The performing lab is in the report. Vitamin B12on 11-05-2021 Cobalamin (Vitamin B12) [Mass/Vol] 228 pg/mL Low 239-931 [facility] Comment on above: Performed By: #### A PTT, TSH5, HEMDF, LDH3, DDI2, BMP3M, ESR, FOLT3, URIC3, FEIBC, FERR3, B12, FT4M ####[facility] [place] [address]#### HVAAO, ANA3, HEPAN, B2GPG, B2GPM, B2GPA ####[facility] [place], [place] #### LUPUS ####The performing lab is in the report. APTTon 11-04-2021 aPTT Coag (Bld) [Time] 64.3 s High 20.0-30.5 [facility] Comment on above: Result Comment: NOTE : The therapeutic time for Heparin anticoagulation, based on Xa activity inhibition, is an APTT of 46-80 seconds. Performed By: #### A PTT #### [place] [address] [place] [address] aPTT Coag (Bld) [Time] 61.1 s High 20.0-30.5 [facility] Comment on above: Result Comment: NOTE : The therapeutic time for Heparin anticoagulation, based on Xa activity inhibition, is an APTT of 46-80 seconds. Performed By: #### A PTT, TSH5, HEMDF, LDH3, DDI2, BMP3M, ESR, FOLT3, URIC3, FEIBC, FERR3, B12, FT4M #### [facility] [address] [place] [address] #### HVAAO, ANA3, HEPAN, B2GPG, B2GPM, B2GPA #### [facility] [address] [place], [place] #### LUPUS #### The performing lab is in the report. aPTT Coag (Bld) [Time] 132.8 s Critically high 20.0-30. 5 [facility] Comment on above: Result Comment: NOTE : The therapeutic time for Heparin anticoagulation, based on Xa activity inhibition, is an APTT of 46-80 seconds. Performed By: #### A PTT, TSH5, HEMDF, LDH3, DDI2, BMP3M, ESR, FOLT3, URIC3, FEIBC, FERR3, B12, FT4M #### [facility] [address] [facility] [place] [facility] [address] [address] #### HVAAO, ANA3, HEPAN, B2GPG, B2GPM, B2GPA #### [address] [address] #### LUPUS #### The performing lab is in the report. aPTT Coag (Bld) [Time] 34.5 s High 20.0-30.5 [facility] Comment on above: Result Comment: NOTE : The therapeutic time for Heparin anticoagulation, based on Xa activity inhibition, is an APTT of 46-80 seconds. Performed By: #### A PTT, TSH5, HEMDF, LDH3, DDI2, BMP3M, ESR, FOLT3, URIC3, FEIBC, FERR3, B12, FT4M #### [address] [place] [address] #### HVAAO, ANA3, HEPAN, B2GPG, B2GPM, B2GPA #### [address] [address] #### LUPUS #### The performing lab is in the report. Basic Metabolic Panelon 10-23 Calcium [Mass/Vol] 9.1 mg/dL Normal 8.4-10.4 [facility] Comment on above: Performed By: #### A PTT, TSH5, HEMDF, LDH3, DDI2, BMP3M, ESR, FOLT3, URIC3, FEIBC, FERR3, B12, FT4M #### [address] [place] [address] #### HVAAO, ANA3, HEPAN, B2GPG, B2GPM, B2GPA #### [address] #### LUPUS #### The performing lab is in the report. Glucose [Mass/Vol] 123 mg/dL High 70-100 [facility] Comment on above: Performed By: #### A PTT, TSH5, HEMDF, LDH3, DDI2, BMP3M, ESR, FOLT3, URIC3, FEIBC, FERR3, B12, FT4M #### [facility] [address] [place] [address] #### HVAAO, ANA3, HEPAN, B2GPG, B2GPM, B2GPA #### [address] #### LUPUS #### The performing lab is in the report. Urea nitrogen [Mass/Vol] 16 mg/dL Normal 9-20 [facility] Comment on above: Performed By: #### A PTT, TSH5, HEMDF, LDH3, DDI2, BMP3M, ESR, FOLT3, URIC3, FEIBC, FERR3, B12, FT4M #### [facility] [address] [place] [address] #### HVAAO, ANA3, HEPAN, B2GPG, B2GPM, B2GPA #### [address] #### LUPUS #### The performing lab is in the report. Anion gap [Moles/Vol] 5 mmol/L Normal 3-13 [facility] Comment on above: Performed By: #### A PTT, TSH5, HEMDF, LDH3, DDI2, BMP3M, ESR, FOLT3, URIC3, FEIBC, FERR3, B12, FT4M #### [facility] [address] [place] [address] #### HVAAO, ANA3, HEPAN, B2GPG, B2GPM, B2GPA #### [address] #### LUPUS #### The performing lab is in the report. CO2 [Moles/Vol] 25 mmol/L Normal 22-30 [facility] Comment on above: Performed By: #### A PTT, TSH5, HEMDF, LDH3, DDI2, BMP3M, ESR, FOLT3, URIC3, FEIBC, FERR3, B12, FT4M #### [place] [address] [place] [address] #### HVAAO, ANA3, HEPAN, B2GPG, B2GPM, B2GPA #### [address] #### LUPUS #### The performing lab is in the report. Creatinine [Mass/Vol] 0.94 mg/dL Normal 0.52-1.25 [facility] Comment on above: Performed By: #### A PTT, TSH5, HEMDF, LDH3, DDI2, BMP3M, ESR, FOLT3, URIC3, FEIBC, FERR3, B12, FT4M #### [address] [place] [address] #### HVAAO, ANA3, HEPAN, B2GPG, B2GPM, B2GPA #### [address] #### LUPUS #### The performing lab is in the report. GFR/1.73 sq M.predicted among blacks MDRD (S/P/Bld) [Vol rate/Area] 67.1 mL/min/{1.73_m2} Normal >60 [facility] Comment on above: Performed By: #### A PTT, TSH5, HEMDF, LDH3, DDI2, BMP3M, ESR, FOLT3, URIC3, FEIBC, FERR3, B12, FT4M #### [address] [place] [address] #### HVAAO, ANA3, HEPAN, B2GPG, B2GPM, B2GPA #### [address] #### LUPUS #### The performing lab is in the report. GFR/1.73 sq M.predicted among non-blacks MDRD (S/P/Bld) [Vol rate/Area] 57.9 mL/min/{1.73_m2} Abnormal >60 [facility] Comment on above: Result Comment: KDIG [...] FEIBC, FERR3, B12, FT4M #### [facility] [address] [place] [address] #### HVAAO, ANA3, HEPAN, B2GPG, B2GPM, B2GPA #### [address] [address] #### LUPUS #### The performing lab is in the report. Chloride [Moles/Vol] 106 mmol/L Normal 98-107 [facility] Comment on above: Performed By: #### A PTT, TSH5, HEMDF, LDH3, DDI2, BMP3M, ESR, FOLT3, URIC3, FEIBC, FERR3, B12, FT4M #### [facility] [address] [place] [address] #### HVAAO, ANA3, HEPAN, B2GPG, B2GPM, B2GPA #### [address] [address] #### LUPUS #### The performing lab is in the report. Potassium [Moles/Vol] 3.6 mmol/L Normal 3.5-5.1 [facility] Comment on above: Performed By: #### A PTT, TSH5, HEMDF, LDH3, DDI2, BMP3M, ESR, FOLT3, URIC3, FEIBC, FERR3, B12, FT4M #### [facility] [address] [place] [address] #### HVAAO, ANA3, HEPAN, B2GPG, B2GPM, B2GPA #### [address] [address] #### LUPUS #### The performing lab is in the report. Sodium [Moles/Vol] 135 mmol/L Normal 135-145 [facility] Comment on above: Performed By: #### A PTT, TSH5, HEMDF, LDH3, DDI2, BMP3M, ESR, FOLT3, URIC3, FEIBC, FERR3, B12, FT4M #### [facility] [address] [place] [address] #### HVAAO, ANA3, HEPAN, B2GPG, B2GPM, B2GPA #### [address] [address] #### LUPUS #### The performing lab is in the report. Echo Complete w/wo Contrasto n 11-04-2021 Echo Complete w/wo Contrast Patient Name: CHAY TEAGUE Ultrasound ACCESSION EXAM DATE/TIME PROCEDURE ORDERING PROVIDER [id number] 11/04/2021 11:49 EST Echo Complete w/wo MD BERNARDINO, CAIN Contrast Reason For Exam (Echo Complete w/wo Contrast) DVT, chest pain Report TRANSTHORACIC ECHOCARDIOGRAM PATIENT: Chay Teague STUDY DATE: 11/04/2021 : 1945 AGE: 76 HT/WT: 160 cm (63 88.5 kg in) (194.6 lb) GENDER: F BP: 142 / 87 LOCATION: [facility] PATIENT Inpatient [facility] STATUS: *ORDERING PHYSICIAN: * Cain Lebron *READING PHYSICIAN: * Jayden ColonSQUEEGEE FINISHER: * Iliana Real MD RDCS,AE, PE, RVT [...] volume (SV) (more content not included)... Normal [employer] System Hemogram w/ Autodiffon 11-04 Abs Baso Cnt 0.1 10*3/uL Normal 0.0-0.2 [facility] Comment on above: Performed By: #### A PTT, TSH5, HEMDF, LDH3, DDI2, BMP3M, ESR, FOLT3, URIC3, FEIBC, FERR3, B12, FT4M #### [facility] [address] [place] [address] #### HVAAO, ANA3, HEPAN, B2GPG, B2GPM, B2GPA #### [address] #### LUPUS #### The performing lab is in the report. Abs Neutrophile Cnt 7.2 10*3/uL High 1.8-7.0 [facility] Comment on above: Performed By: #### A PTT, TSH5, HEMDF, LDH3, DDI2, BMP3M, ESR, FOLT3, URIC3, FEIBC, FERR3, B12, FT4M #### [facility] [address] [place] [address] #### HVAAO, ANA3, HEPAN, B2GPG, B2GPM, B2GPA #### [address] #### LUPUS #### The performing lab is in the report. Basophils/100 WBC (Bld) 0.8 % Normal 0.0-2.0 [facility] Comment on above: Performed By: #### A PTT, TSH5, HEMDF, LDH3, DDI2, BMP3M, ESR, FOLT3, URIC3, FEIBC, FERR3, B12, FT4M #### [facility] [address] [place] [address] #### HVAAO, ANA3, HEPAN, B2GPG, B2GPM, B2GPA #### [address] #### LUPUS #### The performing lab is in the report. Eosinophils (Bld) [#/Vol] 0.5 10*3/uL Normal 0.0-0.5 [facility] Comment on above: Performed By: #### A PTT, TSH5, HEMDF, LDH3, DDI2, BMP3M, ESR, FOLT3, URIC3, FEIBC, FERR3, B12, FT4M #### [facility] [address] [place] [address] #### HVAAO, ANA3, HEPAN, B2GPG, B2GPM, B2GPA #### [address] #### LUPUS #### The performing lab is in the report. Eosinophils/100 WBC (Bld) 4.7 % Normal 1.0-6.0 [facility] Comment on above: Performed By: #### A PTT, TSH5, HEMDF, LDH3, DDI2, BMP3M, ESR, FOLT3, URIC3, FEIBC, FERR3, B12, FT4M #### [facility] [address] [place] [address] #### HVAAO, ANA3, HEPAN, B2GPG, B2GPM, B2GPA #### [address] #### LUPUS #### The performing lab is in the report. Erythrocyte distribution width (RBC) [Ratio] 15.0 % High 11.5-14.5 [facility] Comment on above: Performed By: #### A PTT, TSH5, HEMDF, LDH3, DDI2, BMP3M, ESR, FOLT3, URIC3, FEIBC, FERR3, B12, FT4M #### [place] [address] [place] [address] #### HVAAO, ANA3, HEPAN, B2GPG, B2GPM, B2GPA #### [address] #### LUPUS #### The performing lab is in the report. Granulocytes/100 WBC (Bld) 64.0 % Normal 40.0-80.0 [facility] Comment on above: Performed By: #### A PTT, TSH5, HEMDF, LDH3, DDI2, BMP3M, ESR, FOLT3, URIC3, FEIBC, FERR3, B12, FT4M #### [address] [place] [address] #### HVAAO, ANA3, HEPAN, B2GPG, B2GPM, B2GPA #### [address] #### LUPUS #### The performing lab is in the report. Hematocrit (Bld) [Volume fraction] 40.2 % Normal 35.0-47.0 [facility] Comment on above: Performed By: #### A PTT, TSH5, HEMDF, LDH3, DDI2, BMP3M, ESR, FOLT3, URIC3, FEIBC, FERR3, B12, FT4M #### [address] [place] #### HVAAO, ANA3, HEPAN, B2GPG, B2GPM, B2GPA #### [address] #### LUPUS #### The performing lab is in the report. Hemoglobin (Bld) [Mass/Vol] 13.2 g/dL Normal 11.7-16.0 [facility] Comment on above: Performed By: #### A PTT, TSH5, HEMDF, LDH3, DDI2, BMP3M, ESR, FOLT3, URIC3, FEIBC, FERR3, B12, FT4M #### [address] [place] #### HVAAO, ANA3, HEPAN, B2GPG, B2GPM, B2GPA #### [address] #### LUPUS #### The performing lab is in the report. Lymphocytes (Bld) [#/Vol] 2.5 10*3/uL Normal 1.0-4.3 [facility] Comment on above: Performed By: #### A PTT, TSH5, HEMDF, LDH3, DDI2, BMP3M, ESR, FOLT3, URIC3, FEIBC, FERR3, B12, FT4M #### [place] [address] [place] #### HVAAO, ANA3, HEPAN, B2GPG, B2GPM, B2GPA #### [address] #### LUPUS #### The performing lab is in the report. Lymphocytes/100 WBC (Bld) 22.3 % Normal 20.0-40.0 [facility] Comment on above: Performed By: #### A PTT, TSH5, HEMDF, LDH3, DDI2, BMP3M, ESR, FOLT3, URIC3, FEIBC, FERR3, B12, FT4M #### [place] [address] [place] #### HVAAO, ANA3, HEPAN, B2GPG, B2GPM, B2GPA #### [address] #### LUPUS #### The performing lab is in the report. MCH (RBC) [Entitic mass] 30.3 pg Normal 26.0-34.0 [facility] Comment on above: Performed By: #### A PTT, TSH5, HEMDF, LDH3, DDI2, BMP3M, ESR, FOLT3, URIC3, FEIBC, FERR3, B12, FT4M #### [address] [place] #### HVAAO, ANA3, HEPAN, B2GPG, B2GPM, B2GPA #### [address] #### LUPUS #### The performing lab is in the report. MCHC 32.9 % Normal 32.0-36.0 [facility] Comment on above: Performed By: #### A PTT, TSH5, HEMDF, LDH3, DDI2, BMP3M, ESR, FOLT3, URIC3, FEIBC, FERR3, B12, FT4M #### [place] [address] [place] #### HVAAO, ANA3, HEPAN, B2GPG, B2GPM, B2GPA #### [address] #### LUPUS #### The performing lab is in the report. MCV (RBC) [Entitic vol] 92.0 fL Normal 79.0-98.0 [facility] Comment on above: Performed By: #### A PTT, TSH5, HEMDF, LDH3, DDI2, BMP3M, ESR, FOLT3, URIC3, FEIBC, FERR3, B12, FT4M #### [facility] [address] [place] [address] #### HVAAO, ANA3, HEPAN, B2GPG, B2GPM, B2GPA #### [address] #### LUPUS #### The performing lab is in the report. Monocytes (Bld) [#/Vol] 0.9 10*3/uL High 0.0-0.8 [facility] Comment on above: Performed By: #### A PTT, TSH5, HEMDF, LDH3, DDI2, BMP3M, ESR, FOLT3, URIC3, FEIBC, FERR3, B12, FT4M #### [facility] [address] [place] [address] #### HVAAO, ANA3, HEPAN, B2GPG, B2GPM, B2GPA #### [address] #### LUPUS #### The performing lab is in the report. Monocytes/100 WBC (Bld) 8.2 % Normal 2.0-10.0 [facility] Comment on above: Performed By: #### A PTT, TSH5, HEMDF, LDH3, DDI2, BMP3M, ESR, FOLT3, URIC3, FEIBC, FERR3, B12, FT4M #### [facility] [address] [place] [address] #### HVAAO, ANA3, HEPAN, B2GPG, B2GPM, B2GPA #### [address] #### LUPUS #### The performing lab is in the report. Platelet mean volume (Bld) [Entitic vol] 9.0 fL Normal 7.4-10.4 [facility] Comment on above: Performed By: #### A PTT, TSH5, HEMDF, LDH3, DDI2, BMP3M, ESR, FOLT3, URIC3, FEIBC, FERR3, B12, FT4M #### [facility] [address] [place] [address] #### HVAAO, ANA3, HEPAN, B2GPG, B2GPM, B2GPA #### [address] #### LUPUS #### The performing lab is in the report. Platelets (Bld) [#/Vol] 208 10*3/uL Normal 140-440 [facility] Comment on above: Performed By: #### A PTT, TSH5, HEMDF, LDH3, DDI2, BMP3M, ESR, FOLT3, URIC3, FEIBC, FERR3, B12, FT4M #### [facility] [address] [place], [place] #### HVAAO, ANA3, HEPAN, B2GPG, B2GPM, B2GPA #### [address] #### LUPUS #### The performing lab is in the report. RBC (Bld) [#/Vol] 4.37 10*6/uL Normal 3.80-5.20 [facility] Comment on above: Performed By: #### A PTT, TSH5, HEMDF, LDH3, DDI2, BMP3M, ESR, FOLT3, URIC3, FEIBC, FERR3, B12, FT4M #### [facility] [address] [place] [address] #### HVAAO, ANA3, HEPAN, B2GPG, B2GPM, B2GPA #### [address] #### LUPUS #### The performing lab is in the report. WBC (Bld) [#/Vol] 11.2 10*3/uL High 3.6-10.7 [facility] Comment on above: Performed By: #### A PTT, TSH5, HEMDF, LDH3, DDI2, BMP3M, ESR, FOLT3, URIC3, FEIBC, FERR3, B12, FT4M #### [address] [place] [address] #### HVAAO, ANA3, HEPAN, B2GPG, B2GPM, B2GPA #### [address] #### LUPUS #### The performing lab is in the report. APTTon 11-03-2021 aPTT Coag (Bld) [Time] 42.0 s High 20.0-30.5 [facility] Comment on above: Result Comment: NOTE : The therapeutic time for Heparin anticoagulation, based on Xa activity inhibition, is an APTT of 46-80 seconds. Performed By: #### A PTT, TSH5, HEMDF, LDH3, DDI2, BMP3M, ESR, FOLT3, URIC3, FEIBC, FERR3, B12, FT4M #### [address] [place] [address] #### HVAAO, ANA3, HEPAN, B2GPG, B2GPM, B2GPA #### [address] #### LUPUS #### The performing lab is in the report. aPTT Coag (Bld) [Time] 51.5 s High 20.0-30.5 [facility] Comment on above: Result Comment: NOTE : The therapeutic time for Heparin anticoagulation, based on Xa activity inhibition, is an APTT of 46-80 seconds. Performed By: #### A PTT, TSH5, HEMDF, LDH3, DDI2, BMP3M, ESR, FOLT3, URIC3, FEIBC, FERR3, B12, FT4M #### [address] [place] [address] #### HVAAO, ANA3, HEPAN, B2GPG, B2GPM, B2GPA #### [facility] [address] [place] [address] #### LUPUS #### The performing lab is in the report. aPTT Coag (Bld) [Time] 106.9 s High 20.0-30.5 [facility] Comment on above: Result Comment: NOTE : The therapeutic time for Heparin anticoagulation, based on Xa activity inhibition, is an APTT of 46-80 seconds. Performed By: #### A PTT, TSH5, HEMDF, LDH3, DDI2, BMP3M, ESR, FOLT3, URIC3, FEIBC, FERR3, B12, FT4M #### [facility] [address] [place] [address] #### HVAAO, ANA3, HEPAN, B2GPG, B2GPM, B2GPA #### [address] [id number] #### LUPUS #### The performing lab is in the report. CT Head or Brain w/o Contras ton 11-03-2021 CT Head or Brain w/o Contrast Patient Name: CHAY TEAGUE Computed Tomography ACCESSION EXAM DATE/TIME PROCEDURE ORDERING PROVIDER [id number] 11/03/2021 15:[address] Head or Brain w/o MD CANDY, FCO Contrast CPT code 92654 Reason For Exam (CT Head or Brain [...] Transcribed Date and Time: 11/03/2021 3:31 Normal [facility] Comp Panel with Mg Reflexon 11-03-2021 Calcium [Mass/Vol] 8.9 mg/dL Normal 8.4-10.4 [facility] Comment on above: Performed By: #### A PTT, TSH5, HEMDF, LDH3, DDI2, BMP3M, ESR, FOLT3, URIC3, FEIBC, FERR3, B12, FT4M #### [facility] [address] [place] [address] #### HVAAO, ANA3, HEPAN, B2GPG, B2GPM, B2GPA #### [address] [address] #### LUPUS #### The performing lab is in the report. ALP [Catalytic activity/Vol] 113 U/L Normal 38-126 [facility] Comment on above: Performed By: #### A PTT, TSH5, HEMDF, LDH3, DDI2, BMP3M, ESR, FOLT3, URIC3, FEIBC, FERR3, B12, FT4M #### [facility] [address] [place] [address] #### HVAAO, ANA3, HEPAN, B2GPG, B2GPM, B2GPA #### [address] [phone] #### LUPUS #### The performing lab is in the report. ALT [Catalytic activity/Vol] 15 U/L Normal 0-34 [facility] Comment on above: Result Comment: The ALT test is performed by an updated assay method. Please note that the reference intervals have been changed and are now sex specific. Performed By: #### A PTT, TSH5, HEMDF, LDH3, DDI2, BMP3M, ESR, FOLT3, URIC3, FEIBC, FERR3, B12, FT4M #### [place] [address] [place] [address] #### HVAAO, ANA3, HEPAN, B2GPG, B2GPM, B2GPA #### [address] #### LUPUS #### The performing lab is in the report. Anion gap [Moles/Vol] 9 mmol/L Normal 3-13 [facility] Comment on above: Performed By: #### A PTT, TSH5, HEMDF, LDH3, DDI2, BMP3M, ESR, FOLT3, URIC3, FEIBC, FERR3, B12, FT4M #### [address] [place] #### HVAAO, ANA3, HEPAN, B2GPG, B2GPM, B2GPA #### [address] #### LUPUS #### The performing lab is in the report. AST [Catalytic activity/Vol] 26 U/L Normal 15-46 [facility] Comment on above: Performed By: #### A PTT, TSH5, HEMDF, LDH3, DDI2, BMP3M, ESR, FOLT3, URIC3, FEIBC, FERR3, B12, FT4M #### [address] [place] [address] #### HVAAO, ANA3, HEPAN, B2GPG, B2GPM, B2GPA #### [address] #### LUPUS #### The performing lab is in the report. Bilirubin [Mass/Vol] 0.8 mg/dL Normal 0.2-1.3 [facility] Comment on above: Performed By: #### A PTT, TSH5, HEMDF, LDH3, DDI2, BMP3M, ESR, FOLT3, URIC3, FEIBC, FERR3, B12, FT4M #### [place] [address] [place] [address] #### HVAAO, ANA3, HEPAN, B2GPG, B2GPM, B2GPA #### [address] #### LUPUS #### The performing lab is in the report. CO2 [Moles/Vol] 23 mmol/L Normal 22-30 [facility] Comment on above: Performed By: #### A PTT, TSH5, HEMDF, LDH3, DDI2, BMP3M, ESR, FOLT3, URIC3, FEIBC, FERR3, B12, FT4M #### [place] [address] [place] #### HVAAO, ANA3, HEPAN, B2GPG, B2GPM, B2GPA #### [address] #### LUPUS #### The performing lab is in the report. Glucose [Mass/Vol] 112 mg/dL High 70-100 [facility] Comment on above: Performed By: #### A PTT, TSH5, HEMDF, LDH3, DDI2, BMP3M, ESR, FOLT3, URIC3, FEIBC, FERR3, B12, FT4M #### [address] [place] #### HVAAO, ANA3, HEPAN, B2GPG, B2GPM, B2GPA #### [address] #### LUPUS #### The performing lab is in the report. Protein [Mass/Vol] 7.2 g/dL Normal 6.3-8.2 [facility] Comment on above: Performed By: #### A PTT, TSH5, HEMDF, LDH3, DDI2, BMP3M, ESR, FOLT3, URIC3, FEIBC, FERR3, B12, FT4M #### [place] [address] [place] #### HVAAO, ANA3, HEPAN, B2GPG, B2GPM, B2GPA #### [address] #### LUPUS #### The performing lab is in the report. Urea nitrogen [Mass/Vol] 22 mg/dL High 9-20 [facility] Comment on above: Performed By: #### A PTT, TSH5, HEMDF, LDH3, DDI2, BMP3M, ESR, FOLT3, URIC3, FEIBC, FERR3, B12, FT4M #### [place] [address] [place] [address] #### HVAAO, ANA3, HEPAN, B2GPG, B2GPM, B2GPA #### [address] #### LUPUS #### The performing lab is in the report. Creatinine [Mass/Vol] 1.13 mg/dL Normal 0.52-1.25 [facility] Comment on above: Performed By: #### A PTT, TSH5, HEMDF, LDH3, DDI2, BMP3M, ESR, FOLT3, URIC3, FEIBC, FERR3, B12, FT4M #### [address] [place] [address] #### HVAAO, ANA3, HEPAN, B2GPG, B2GPM, B2GPA #### [address] #### LUPUS #### The performing lab is in the report. GFR/1.73 sq M.predicted among blacks MDRD (S/P/Bld) [Vol rate/Area] 53.7 mL/min/{1.73_m2} Abnormal >60 [facility] Comment on above: Performed By: #### A PTT, TSH5, HEMDF, LDH3, DDI2, BMP3M, ESR, FOLT3, URIC3, FEIBC, FERR3, B12, FT4M #### [address] [place] [address] #### HVAAO, ANA3, HEPAN, B2GPG, B2GPM, B2GPA #### [address] [place] [address] #### LUPUS #### The performing lab is in the report. GFR/1.73 sq M.predicted among non-blacks MDRD (S/P/Bld) [Vol rate/Area] 46.3 mL/min/{1.73_m2} Abnormal >60 [facility] [employer] [facility] Comment on above: Result Comment: KDIG [...] FOLT3, URIC3, FEIBC, FERR3, B12, FT4M #### [facility] [employer] [facility] [address] [place] [address] #### HVAAO, ANA3, HEPAN, B2GPG, B2GPM, B2GPA #### [facility] [employer] [address] [address] #### LUPUS #### The performing lab is in the report. Albumin [Mass/Vol] 3.8 g/dL Normal 3.5-5.0 [facility] Comment on above: Performed By: #### A PTT, TSH5, HEMDF, LDH3, DDI2, BMP3M, ESR, FOLT3, URIC3, FEIBC, FERR3, B12, FT4M #### [facility] [employer] [facility] [address] [place] [address] #### HVAAO, ANA3, HEPAN, B2GPG, B2GPM, B2GPA #### [address] #### LUPUS #### The performing lab is in the report. Chloride [Moles/Vol] 104 mmol/L Normal 98-107 [facility] Comment on above: Performed By: #### A PTT, TSH5, HEMDF, LDH3, DDI2, BMP3M, ESR, FOLT3, URIC3, FEIBC, FERR3, B12, FT4M #### [facility] [address] [place], [place] #### HVAAO, ANA3, HEPAN, B2GPG, B2GPM, B2GPA #### [address] #### LUPUS #### The performing lab is in the report. Potassium [Moles/Vol] 3.2 mmol/L Low 3.5-5.1 [facility] Comment on above: Performed By: #### A PTT, TSH5, HEMDF, LDH3, DDI2, BMP3M, ESR, FOLT3, URIC3, FEIBC, FERR3, B12, FT4M #### [facility] [address] [place] #### HVAAO, ANA3, HEPAN, B2GPG, B2GPM, B2GPA #### [address] #### LUPUS #### The performing lab is in the report. Sodium [Moles/Vol] 136 mmol/L Normal 135-145 [facility] Comment on above: Performed By: #### A PTT, TSH5, HEMDF, LDH3, DDI2, BMP3M, ESR, FOLT3, URIC3, FEIBC, FERR3, B12, FT4M #### [place] [address] [place], [place] #### HVAAO, ANA3, HEPAN, B2GPG, B2GPM, B2GPA #### [address] #### LUPUS #### The performing lab is in the report. Glucose,Bedsideon 11-03-2021 Glucose [Mass/Vol] 117 mg/dL High 70-100 [facility] Comment on above: Result Comment: Test performed by glucose meter. Results may be 10%-15% lower than serum/plasma values. (CLIA ID [id number]) Performed By: #### A PTT, TSH5, HEMDF, LDH3, DDI2, BMP3M, ESR, FOLT3, URIC3, FEIBC, FERR3, B12, FT4M #### [facility] [address] [place] [address] #### HVAAO, ANA3, HEPAN, B2GPG, B2GPM, B2GPA #### [address] #### LUPUS #### The performing lab is in the report. Hemogramon 11-03-2021 Erythrocyte distribution width (RBC) [Ratio] 14.9 % High 11.5-14.5 [facility] Comment on above: Performed By: #### A PTT, TSH5, HEMDF, LDH3, DDI2, BMP3M, ESR, FOLT3, URIC3, FEIBC, FERR3, B12, FT4M #### [facility] [address] [place] [address] #### HVAAO, ANA3, HEPAN, B2GPG, B2GPM, B2GPA #### [address] #### LUPUS #### The performing lab is in the report. Hematocrit (Bld) [Volume fraction] 41.6 % Normal 35.0-47.0 [facility] Comment on above: Performed By: #### A PTT, TSH5, HEMDF, LDH3, DDI2, BMP3M, ESR, FOLT3, URIC3, FEIBC, FERR3, B12, FT4M #### [place] [address] [place] [address] #### HVAAO, ANA3, HEPAN, B2GPG, B2GPM, B2GPA #### [address] #### LUPUS #### The performing lab is in the report. Hemoglobin (Bld) [Mass/Vol] 14.1 g/dL Normal 11.7-16.0 [facility] Comment on above: Performed By: #### A PTT, TSH5, HEMDF, LDH3, DDI2, BMP3M, ESR, FOLT3, URIC3, FEIBC, FERR3, B12, FT4M #### [facility] [address] [place] [address] #### HVAAO, ANA3, HEPAN, B2GPG, B2GPM, B2GPA #### [address] #### LUPUS #### The performing lab is in the report. MCH (RBC) [Entitic mass] 30.7 pg Normal 26.0-34.0 [facility] Comment on above: Performed By: #### A PTT, TSH5, HEMDF, LDH3, DDI2, BMP3M, ESR, FOLT3, URIC3, FEIBC, FERR3, B12, FT4M #### [facility] [address] [place], [place] #### HVAAO, ANA3, HEPAN, B2GPG, B2GPM, B2GPA #### [address] #### LUPUS #### The performing lab is in the report. MCHC 34.0 % Normal 32.0-36.0 [facility] Comment on above: Performed By: #### A PTT, TSH5, HEMDF, LDH3, DDI2, BMP3M, ESR, FOLT3, URIC3, FEIBC, FERR3, B12, FT4M #### [facility] [address] [place], [place] #### HVAAO, ANA3, HEPAN, B2GPG, B2GPM, B2GPA #### [address] #### LUPUS #### The performing lab is in the report. MCV (RBC) [Entitic vol] 90.3 fL Normal 79.0-98.0 [facility] Comment on above: Performed By: #### A PTT, TSH5, HEMDF, LDH3, DDI2, BMP3M, ESR, FOLT3, URIC3, FEIBC, FERR3, B12, FT4M #### [facility] [address] [place] [address] #### HVAAO, ANA3, HEPAN, B2GPG, B2GPM, B2GPA #### [address] #### LUPUS #### The performing lab is in the report. Platelet mean volume (Bld) [Entitic vol] 8.8 fL Normal 7.4-10.4 [facility] Comment on above: Performed By: #### A PTT, TSH5, HEMDF, LDH3, DDI2, BMP3M, ESR, FOLT3, URIC3, FEIBC, FERR3, B12, FT4M #### [facility] [address] [place] [address] #### HVAAO, ANA3, HEPAN, B2GPG, B2GPM, B2GPA #### [address] #### LUPUS #### The performing lab is in the report. Platelets (Bld) [#/Vol] 185 10*3/uL Normal 140-440 [facility] Comment on above: Performed By: #### A PTT, TSH5, HEMDF, LDH3, DDI2, BMP3M, ESR, FOLT3, URIC3, FEIBC, FERR3, B12, FT4M #### [facility] [address] [place] [address] #### HVAAO, ANA3, HEPAN, B2GPG, B2GPM, B2GPA #### [address] #### LUPUS #### The performing lab is in the report. RBC (Bld) [#/Vol] 4.61 10*6/uL Normal 3.80-5.20 [facility] Comment on above: Performed By: #### A PTT, TSH5, HEMDF, LDH3, DDI2, BMP3M, ESR, FOLT3, URIC3, FEIBC, FERR3, B12, FT4M #### [facility] [address] [place] [address] #### HVAAO, ANA3, HEPAN, B2GPG, B2GPM, B2GPA #### [address] #### LUPUS #### The performing lab is in the report. WBC (Bld) [#/Vol] 9.3 10*3/uL Normal 3.6-10.7 [facility] Comment on above: Performed By: #### A PTT, TSH5, HEMDF, LDH3, DDI2, BMP3M, ESR, FOLT3, URIC3, FEIBC, FERR3, B12, FT4M #### [place] [address] [place] [address] #### HVAAO, ANA3, HEPAN, B2GPG, B2GPM, B2GPA #### [address] #### LUPUS #### The performing lab is in the report. Hemogram w/ Autodiffon 11-03 Abs Baso Cnt 0.0 10*3/uL Normal 0.0-0.2 [facility] Comment on above: Performed By: #### A PTT, TSH5, HEMDF, LDH3, DDI2, BMP3M, ESR, FOLT3, URIC3, FEIBC, FERR3, B12, FT4M #### [place] [address] [place] [address] #### HVAAO, ANA3, HEPAN, B2GPG, B2GPM, B2GPA #### [address] #### LUPUS #### The performing lab is in the report. Abs Neutrophile Cnt 6.5 10*3/uL Normal 1.8-7.0 [facility] Comment on above: Performed By: #### A PTT, TSH5, HEMDF, LDH3, DDI2, BMP3M, ESR, FOLT3, URIC3, FEIBC, FERR3, B12, FT4M #### [place] [address] [place] [address] #### HVAAO, ANA3, HEPAN, B2GPG, B2GPM, B2GPA #### [address] #### LUPUS #### The performing lab is in the report. Basophils/100 WBC (Bld) 0.4 % Normal 0.0-2.0 [facility] Comment on above: Performed By: #### A PTT, TSH5, HEMDF, LDH3, DDI2, BMP3M, ESR, FOLT3, URIC3, FEIBC, FERR3, B12, FT4M #### [address] [place] #### HVAAO, ANA3, HEPAN, B2GPG, B2GPM, B2GPA #### [address] #### LUPUS #### The performing lab is in the report. Eosinophils (Bld) [#/Vol] 0.4 10*3/uL Normal 0.0-0.5 [facility] Comment on above: Performed By: #### A PTT, TSH5, HEMDF, LDH3, DDI2, BMP3M, ESR, FOLT3, URIC3, FEIBC, FERR3, B12, FT4M #### [address] [place] #### HVAAO, ANA3, HEPAN, B2GPG, B2GPM, B2GPA #### [address] #### LUPUS #### The performing lab is in the report. Eosinophils/100 WBC (Bld) 4.0 % Normal 1.0-6.0 [facility] Comment on above: Performed By: #### A PTT, TSH5, HEMDF, LDH3, DDI2, BMP3M, ESR, FOLT3, URIC3, FEIBC, FERR3, B12, FT4M #### [facility] [address] [place] [address] #### HVAAO, ANA3, HEPAN, B2GPG, B2GPM, B2GPA #### [address] #### LUPUS #### The performing lab is in the report. Erythrocyte distribution width (RBC) [Ratio] 14.9 % High 11.5-14.5 [facility] Comment on above: Performed By: #### A PTT, TSH5, HEMDF, LDH3, DDI2, BMP3M, ESR, FOLT3, URIC3, FEIBC, FERR3, B12, FT4M #### [place] [address] [place] #### HVAAO, ANA3, HEPAN, B2GPG, B2GPM, B2GPA #### [address] #### LUPUS #### The performing lab is in the report. Granulocytes/100 WBC (Bld) 65.5 % Normal 40.0-80.0 [facility] Comment on above: Performed By: #### A PTT, TSH5, HEMDF, LDH3, DDI2, BMP3M, ESR, FOLT3, URIC3, FEIBC, FERR3, B12, FT4M #### [place] [address] [place] [address] #### HVAAO, ANA3, HEPAN, B2GPG, B2GPM, B2GPA #### [address] #### LUPUS #### The performing lab is in the report. Hematocrit (Bld) [Volume fraction] 43.4 % Normal 35.0-47.0 [facility] Comment on above: Performed By: #### A PTT, TSH5, HEMDF, LDH3, DDI2, BMP3M, ESR, FOLT3, URIC3, FEIBC, FERR3, B12, FT4M #### [address] [place] #### HVAAO, ANA3, HEPAN, B2GPG, B2GPM, B2GPA #### [address] #### LUPUS #### The performing lab is in the report. Hemoglobin (Bld) [Mass/Vol] 14.6 g/dL Normal 11.7-16.0 [facility] Comment on above: Performed By: #### A PTT, TSH5, HEMDF, LDH3, DDI2, BMP3M, ESR, FOLT3, URIC3, FEIBC, FERR3, B12, FT4M #### [address] [place] #### HVAAO, ANA3, HEPAN, B2GPG, B2GPM, B2GPA #### [address] #### LUPUS #### The performing lab is in the report. Lymphocytes (Bld) [#/Vol] 2.2 10*3/uL Normal 1.0-4.3 [facility] Comment on above: Performed By: #### A PTT, TSH5, HEMDF, LDH3, DDI2, BMP3M, ESR, FOLT3, URIC3, FEIBC, FERR3, B12, FT4M #### [address] [place] #### HVAAO, ANA3, HEPAN, B2GPG, B2GPM, B2GPA #### [address] #### LUPUS #### The performing lab is in the report. Lymphocytes/100 WBC (Bld) 22.4 % Normal 20.0-40.0 [facility] Comment on above: Performed By: #### A PTT, TSH5, HEMDF, LDH3, DDI2, BMP3M, ESR, FOLT3, URIC3, FEIBC, FERR3, B12, FT4M #### [address] [place] [address] #### HVAAO, ANA3, HEPAN, B2GPG, B2GPM, B2GPA #### [address] [address] #### LUPUS #### The performing lab is in the report. MCH (RBC) [Entitic mass] 30.8 pg Normal 26.0-34.0 [facility] Comment on above: Performed By: #### A PTT, TSH5, HEMDF, LDH3, DDI2, BMP3M, ESR, FOLT3, URIC3, FEIBC, FERR3, B12, FT4M #### [facility] [address] [place], [place] #### HVAAO, ANA3, HEPAN, B2GPG, B2GPM, B2GPA #### [address] #### LUPUS #### The performing lab is in the report. MCHC 33.6 % Normal 32.0-36.0 [facility] Comment on above: Performed By: #### A PTT, TSH5, HEMDF, LDH3, DDI2, BMP3M, ESR, FOLT3, URIC3, FEIBC, FERR3, B12, FT4M #### [facility] [address] [place], [place] #### HVAAO, ANA3, HEPAN, B2GPG, B2GPM, B2GPA #### [address] #### LUPUS #### The performing lab is in the report. MCV (RBC) [Entitic vol] 91.5 fL Normal 79.0-98.0 [facility] Comment on above: Performed By: #### A PTT, TSH5, HEMDF, LDH3, DDI2, BMP3M, ESR, FOLT3, URIC3, FEIBC, FERR3, B12, FT4M #### [facility] [address] [place] #### HVAAO, ANA3, HEPAN, B2GPG, B2GPM, B2GPA #### [address] #### LUPUS #### The performing lab is in the report. Monocytes (Bld) [#/Vol] 0.8 10*3/uL Normal 0.0-0.8 [facility] Comment on above: Performed By: #### A PTT, TSH5, HEMDF, LDH3, DDI2, BMP3M, ESR, FOLT3, URIC3, FEIBC, FERR3, B12, FT4M #### [facility] [address] [place] [address] #### HVAAO, ANA3, HEPAN, B2GPG, B2GPM, B2GPA #### [address] #### LUPUS #### The performing lab is in the report. Monocytes/100 WBC (Bld) 7.7 % Normal 2.0-10.0 [facility] Comment on above: Performed By: #### A PTT, TSH5, HEMDF, LDH3, DDI2, BMP3M, ESR, FOLT3, URIC3, FEIBC, FERR3, B12, FT4M #### [facility] [address] [place] #### HVAAO, ANA3, HEPAN, B2GPG, B2GPM, B2GPA #### [address] #### LUPUS #### The performing lab is in the report. Platelet mean volume (Bld) [Entitic vol] 9.2 fL Normal 7.4-10.4 [facility] Comment on above: Performed By: #### A PTT, TSH5, HEMDF, LDH3, DDI2, BMP3M, ESR, FOLT3, URIC3, FEIBC, FERR3, B12, FT4M #### [address] [place] #### HVAAO, ANA3, HEPAN, B2GPG, B2GPM, B2GPA #### [address] #### LUPUS #### The performing lab is in the report. Platelets (Bld) [#/Vol] 208 10*3/uL Normal 140-440 [facility] Comment on above: Performed By: #### A PTT, TSH5, HEMDF, LDH3, DDI2, BMP3M, ESR, FOLT3, URIC3, FEIBC, FERR3, B12, FT4M #### [facility] [address] [place] [address] #### HVAAO, ANA3, HEPAN, B2GPG, B2GPM, B2GPA #### [address] #### LUPUS #### The performing lab is in the report. RBC (Bld) [#/Vol] 4.74 10*6/uL Normal 3.80-5.20 [facility] Comment on above: Performed By: #### A PTT, TSH5, HEMDF, LDH3, DDI2, BMP3M, ESR, FOLT3, URIC3, FEIBC, FERR3, B12, FT4M #### [facility] [address] [place] [address] #### HVAAO, ANA3, HEPAN, B2GPG, B2GPM, B2GPA #### [address] #### LUPUS #### The performing lab is in the report. WBC (Bld) [#/Vol] 10.0 10*3/uL Normal 3.6-10.7 [facility] Comment on above: Performed By: #### A PTT, TSH5, HEMDF, LDH3, DDI2, BMP3M, ESR, FOLT3, URIC3, FEIBC, FERR3, B12, FT4M #### [place] [address] [place] [address] #### HVAAO, ANA3, HEPAN, B2GPG, B2GPM, B2GPA #### [address] #### LUPUS #### The performing lab is in the report. Magnesiumon 11-03-2021 Magnesium [Mass/Vol] 2.1 mg/dL Normal 1.6-2.3 [facility] Comment on above: Performed By: #### A PTT, TSH5, HEMDF, LDH3, DDI2, BMP3M, ESR, FOLT3, URIC3, FEIBC, FERR3, B12, FT4M #### [place] [address] [place] [address] #### HVAAO, ANA3, HEPAN, B2GPG, B2GPM, B2GPA #### [address] #### LUPUS #### The performing lab is in the report. APTTon 11-02-2021 aPTT Coag (Bld) [Time] 22.5 s Normal 20.0-30.5 [facility] Comment on above: Result Comment: NOTE : The therapeutic time for Heparin anticoagulation, based on Xa activity inhibition, is an APTT of 46-80 seconds. Performed By: #### A PTT, TSH5, HEMDF, LDH3, DDI2, BMP3M, ESR, FOLT3, URIC3, FEIBC, FERR3, B12, FT4M #### [address] [place] [address] #### HVAAO, ANA3, HEPAN, B2GPG, B2GPM, B2GPA #### [address] #### LUPUS #### The performing lab is in the report. Add on test from HISon 11-02 Add on test from [facility] Accepted Normal [facility] Comment on above: Result Comment: Spec imen available & acceptable for analysis. Performed By: #### A PTT, TSH5, HEMDF, LDH3, DDI2, BMP3M, ESR, FOLT3, URIC3, FEIBC, FERR3, B12, FT4M #### [place] [address] [place] [address] #### HVAAO, ANA3, HEPAN, B2GPG, B2GPM, B2GPA #### [address] #### LUPUS #### The performing lab is in the report. Basic Metabolic Panelon 10-23 Calcium [Mass/Vol] 9.4 mg/dL Normal 8.4-10.4 [facility] Comment on above: Performed By: #### A PTT, TSH5, HEMDF, LDH3, DDI2, BMP3M, ESR, FOLT3, URIC3, FEIBC, FERR3, B12, FT4M #### [address] [place] [address] #### HVAAO, ANA3, HEPAN, B2GPG, B2GPM, B2GPA #### [address] #### LUPUS #### The performing lab is in the report. Anion gap [Moles/Vol] 7 mmol/L Normal 3-13 [facility] Comment on above: Performed By: #### A PTT, TSH5, HEMDF, LDH3, DDI2, BMP3M, ESR, FOLT3, URIC3, FEIBC, FERR3, B12, FT4M #### [address] [facility] [place] [address] #### HVAAO, ANA3, HEPAN, B2GPG, B2GPM, B2GPA #### [address] #### LUPUS #### The performing lab is in the report. CO2 [Moles/Vol] 30 mmol/L Normal 22-30 [facility] Comment on above: Performed By: #### A PTT, TSH5, HEMDF, LDH3, DDI2, BMP3M, ESR, FOLT3, URIC3, FEIBC, FERR3, B12, FT4M #### [address] [place] [address] #### HVAAO, ANA3, HEPAN, B2GPG, B2GPM, B2GPA #### [address] #### LUPUS #### The performing lab is in the report. Creatinine [Mass/Vol] 0.99 mg/dL Normal 0.52-1.25 [facility] Comment on above: Performed By: #### A PTT, TSH5, HEMDF, LDH3, DDI2, BMP3M, ESR, FOLT3, URIC3, FEIBC, FERR3, B12, FT4M #### [facility] [address] [place] [address] #### HVAAO, ANA3, HEPAN, B2GPG, B2GPM, B2GPA #### [facility] [address] [place] [address] #### LUPUS #### The performing lab is in the report. GFR/1.73 sq M.predicted among blacks MDRD (S/P/Bld) [Vol rate/Area] 63.0 mL/min/{1.73_m2} Normal >60 [facility] Comment on above: Performed By: #### A PTT, TSH5, HEMDF, LDH3, DDI2, BMP3M, ESR, FOLT3, URIC3, FEIBC, FERR3, B12, FT4M #### [facility] [address] [place] [address] #### HVAAO, ANA3, HEPAN, B2GPG, B2GPM, B2GPA #### [address] [address] #### LUPUS #### The performing lab is in the report. GFR/1.73 sq M.predicted among non-blacks MDRD (S/P/Bld) [Vol rate/Area] 54.4 mL/min/{1.73_m2} Abnormal >60 [facility] Comment on above: Result Comment: KDIG [...] FEIBC, FERR3, B12, FT4M #### [facility] [address] [place] [address] #### HVAAO, ANA3, HEPAN, B2GPG, B2GPM, B2GPA #### [address] #### LUPUS #### The performing lab is in the report. Glucose [Mass/Vol] 116 mg/dL High 70-100 [facility] Comment on above: Performed By: #### A PTT, TSH5, HEMDF, LDH3, DDI2, BMP3M, ESR, FOLT3, URIC3, FEIBC, FERR3, B12, FT4M #### [address] [place] #### HVAAO, ANA3, HEPAN, B2GPG, B2GPM, B2GPA #### [address] #### LUPUS #### The performing lab is in the report. Urea nitrogen [Mass/Vol] 22 mg/dL High 9-20 [facility] Comment on above: Performed By: #### A PTT, TSH5, HEMDF, LDH3, DDI2, BMP3M, ESR, FOLT3, URIC3, FEIBC, FERR3, B12, FT4M #### [address] [place] [address] #### HVAAO, ANA3, HEPAN, B2GPG, B2GPM, B2GPA #### [address] #### LUPUS #### The performing lab is in the report. Chloride [Moles/Vol] 101 mmol/L Normal 98-107 [facility] Comment on above: Performed By: #### A PTT, TSH5, HEMDF, LDH3, DDI2, BMP3M, ESR, FOLT3, URIC3, FEIBC, FERR3, B12, FT4M #### [place] [address] [place] [address] #### HVAAO, ANA3, HEPAN, B2GPG, B2GPM, B2GPA #### [address] #### LUPUS #### The performing lab is in the report. Potassium [Moles/Vol] 3.2 mmol/L Low 3.5-5.1 [facility] Comment on above: Performed By: #### A PTT, TSH5, HEMDF, LDH3, DDI2, BMP3M, ESR, FOLT3, URIC3, FEIBC, FERR3, B12, FT4M #### [place] [address] [place] [address] #### HVAAO, ANA3, HEPAN, B2GPG, B2GPM, B2GPA #### [address] #### LUPUS #### The performing lab is in the report. Sodium [Moles/Vol] 137 mmol/L Normal 135-145 [facility] Comment on above: Performed By: #### A PTT, TSH5, HEMDF, LDH3, DDI2, BMP3M, ESR, FOLT3, URIC3, FEIBC, FERR3, B12, FT4M #### [place] [address] [place] [address] #### HVAAO, ANA3, HEPAN, B2GPG, B2GPM, B2GPA #### [address] #### LUPUS #### The performing lab is in the report. CTA Chest w/ + w/o Contrasto n 11-02-2021 CTA Chest w/ + w/o Contrast Patient Name: CHAY TEAGUE Computed Tomography ACCESSION EXAM DATE/TIME PROCEDURE ORDERING PROVIDER [id number] 11/02/2021 17:43 EST CTA Chest w/ + w/o MD BERNARDINO, CAIN Contrast CPT code 75783 Q9967 Reason For Exam (CTA Chest w/ + w/o Contrast) LLE DVT, chest pain r/o PE Report Reasons for examination: Chest pain and DVT. 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 Plan is to admit to medicine with [...] are mis-transcribed.) LUIS STERN MD Acute Care [facility] Luis Stern MD 11/03/[address] [facility]ay [facility] : 1945 Date of Evaluation: 11/02/2021 ED [place]ANETTE Provider: Sharri Morel PA-C EDcare was supervised by Dr. Stern who independently examined and evaluated the patient. Please see their attestation note for further details. I was wearing an N95 mask, surgical mask, and goggles. Chief Complaint Chief Complaint Patient presents with ? Leg Swelling [place] Chay Teague is a 76 y.o. female [...] otherwise acutely negative except as in the [place]. Past History Past Medical History: Diagnosis Date [...] and Family: Not on file ? Attends [employer]: Not on file ? Active Member [...] (2.5 MG/3M (more content not included)... Normal [facility] Hemogram w/ Autodiffon 11-02 Abs Baso Cnt 0.1 10*3/uL Normal 0.0-0.2 [facility] Comment on above: Performed By: #### A PTT, TSH5, HEMDF, LDH3, DDI2, BMP3M, ESR, FOLT3, URIC3, FEIBC, FERR3, B12, FT4M #### [facility] [address] [place] [address] #### HVAAO, ANA3, HEPAN, B2GPG, B2GPM, B2GPA #### [facility] [address] [place] [address] #### LUPUS #### The performing lab is in the report. Abs Neutrophile Cnt 6.8 10*3/uL Normal 1.8-7.0 [facility] Comment on above: Performed By: #### A PTT, TSH5, HEMDF, LDH3, DDI2, BMP3M, ESR, FOLT3, URIC3, FEIBC, FERR3, B12, FT4M #### [address] [place] [address] #### HVAAO, ANA3, HEPAN, B2GPG, B2GPM, B2GPA #### [address] #### LUPUS #### The performing lab is in the report. Basophils/100 WBC (Bld) 0.8 % Normal 0.0-2.0 [facility] Comment on above: Performed By: #### A PTT, TSH5, HEMDF, LDH3, DDI2, BMP3M, ESR, FOLT3, URIC3, FEIBC, FERR3, B12, FT4M #### [address] [place] #### HVAAO, ANA3, HEPAN, B2GPG, B2GPM, B2GPA #### [address] #### LUPUS #### The performing lab is in the report. Eosinophils (Bld) [#/Vol] 0.3 10*3/uL Normal 0.0-0.5 [facility] Comment on above: Performed By: #### A PTT, TSH5, HEMDF, LDH3, DDI2, BMP3M, ESR, FOLT3, URIC3, FEIBC, FERR3, B12, FT4M #### [address] [place] #### HVAAO, ANA3, HEPAN, B2GPG, B2GPM, B2GPA #### [address] #### LUPUS #### The performing lab is in the report. Eosinophils/100 WBC (Bld) 2.9 % Normal 1.0-6.0 [facility] Comment on above: Performed By: #### A PTT, TSH5, HEMDF, LDH3, DDI2, BMP3M, ESR, FOLT3, URIC3, FEIBC, FERR3, B12, FT4M #### [facility] [address] [place] [address] #### HVAAO, ANA3, HEPAN, B2GPG, B2GPM, B2GPA #### [address] #### LUPUS #### The performing lab is in the report. Erythrocyte distribution width (RBC) [Ratio] 15.2 % High 11.5-14.5 [facility] Comment on above: Performed By: #### A PTT, TSH5, HEMDF, LDH3, DDI2, BMP3M, ESR, FOLT3, URIC3, FEIBC, FERR3, B12, FT4M #### [address] [place] [address] #### HVAAO, ANA3, HEPAN, B2GPG, B2GPM, B2GPA #### [address] #### LUPUS #### The performing lab is in the report. Granulocytes/100 WBC (Bld) 62.6 % Normal 40.0-80.0 [facility] Comment on above: Performed By: #### A PTT, TSH5, HEMDF, LDH3, DDI2, BMP3M, ESR, FOLT3, URIC3, FEIBC, FERR3, B12, FT4M #### [address] [place] [address] #### HVAAO, ANA3, HEPAN, B2GPG, B2GPM, B2GPA #### [address] #### LUPUS #### The performing lab is in the report. Hematocrit (Bld) [Volume fraction] 41.3 % Normal 35.0-47.0 [facility] Comment on above: Performed By: #### A PTT, TSH5, HEMDF, LDH3, DDI2, BMP3M, ESR, FOLT3, URIC3, FEIBC, FERR3, B12, FT4M #### [address] [place] [address] #### HVAAO, ANA3, HEPAN, B2GPG, B2GPM, B2GPA #### [address] #### LUPUS #### The performing lab is in the report. Hemoglobin (Bld) [Mass/Vol] 13.9 g/dL Normal 11.7-16.0 [facility] Comment on above: Performed By: #### A PTT, TSH5, HEMDF, LDH3, DDI2, BMP3M, ESR, FOLT3, URIC3, FEIBC, FERR3, B12, FT4M #### [address] [place] #### HVAAO, ANA3, HEPAN, B2GPG, B2GPM, B2GPA #### [address] #### LUPUS #### The performing lab is in the report. Lymphocytes (Bld) [#/Vol] 2.6 10*3/uL Normal 1.0-4.3 [facility] Comment on above: Performed By: #### A PTT, TSH5, HEMDF, LDH3, DDI2, BMP3M, ESR, FOLT3, URIC3, FEIBC, FERR3, B12, FT4M #### [address] [facility] [place] #### HVAAO, ANA3, HEPAN, B2GPG, B2GPM, B2GPA #### [address] #### LUPUS #### The performing lab is in the report. Lymphocytes/100 WBC (Bld) 23.6 % Normal 20.0-40.0 [facility] Comment on above: Performed By: #### A PTT, TSH5, HEMDF, LDH3, DDI2, BMP3M, ESR, FOLT3, URIC3, FEIBC, FERR3, B12, FT4M #### [address] [place] #### HVAAO, ANA3, HEPAN, B2GPG, B2GPM, B2GPA #### [address] #### LUPUS #### The performing lab is in the report. MCH (RBC) [Entitic mass] 30.7 pg Normal 26.0-34.0 [facility] Comment on above: Performed By: #### A PTT, TSH5, HEMDF, LDH3, DDI2, BMP3M, ESR, FOLT3, URIC3, FEIBC, FERR3, B12, FT4M #### [facility] [address] [place] [address] #### HVAAO, ANA3, HEPAN, B2GPG, B2GPM, B2GPA #### [address] #### LUPUS #### The performing lab is in the report. MCHC 33.6 % Normal 32.0-36.0 [facility] Comment on above: Performed By: #### A PTT, TSH5, HEMDF, LDH3, DDI2, BMP3M, ESR, FOLT3, URIC3, FEIBC, FERR3, B12, FT4M #### [facility] [address] [place] #### HVAAO, ANA3, HEPAN, B2GPG, B2GPM, B2GPA #### [address] #### LUPUS #### The performing lab is in the report. MCV (RBC) [Entitic vol] 91.2 fL Normal 79.0-98.0 [facility] Comment on above: Performed By: #### A PTT, TSH5, HEMDF, LDH3, DDI2, BMP3M, ESR, FOLT3, URIC3, FEIBC, FERR3, B12, FT4M #### [facility] [address] [place] #### HVAAO, ANA3, HEPAN, B2GPG, B2GPM, B2GPA #### [address] #### LUPUS #### The performing lab is in the report. Monocytes (Bld) [#/Vol] 1.1 10*3/uL High 0.0-0.8 [facility] Comment on above: Performed By: #### A PTT, TSH5, HEMDF, LDH3, DDI2, BMP3M, ESR, FOLT3, URIC3, FEIBC, FERR3, B12, FT4M #### [facility] [address] [place] [address] #### HVAAO, ANA3, HEPAN, B2GPG, B2GPM, B2GPA #### [address] #### LUPUS #### The performing lab is in the report. Monocytes/100 WBC (Bld) 10.1 % High 2.0-10.0 [facility] Comment on above: Performed By: #### A PTT, TSH5, HEMDF, LDH3, DDI2, BMP3M, ESR, FOLT3, URIC3, FEIBC, FERR3, B12, FT4M #### [facility] [employer] [facility] [address] [place] #### HVAAO, ANA3, HEPAN, B2GPG, B2GPM, B2GPA #### [address] #### LUPUS #### The performing lab is in the report. Platelet mean volume (Bld) [Entitic vol] 8.9 fL Normal 7.4-10.4 [facility] Comment on above: Performed By: #### A PTT, TSH5, HEMDF, LDH3, DDI2, BMP3M, ESR, FOLT3, URIC3, FEIBC, FERR3, B12, FT4M #### [facility] [address] [place] [address] #### HVAAO, ANA3, HEPAN, B2GPG, B2GPM, B2GPA #### [address] #### LUPUS #### The performing lab is in the report. Platelets (Bld) [#/Vol] 208 10*3/uL Normal 140-440 [facility] Comment on above: Performed By: #### A PTT, TSH5, HEMDF, LDH3, DDI2, BMP3M, ESR, FOLT3, URIC3, FEIBC, FERR3, B12, FT4M #### [facility] [address] [place] [address] #### HVAAO, ANA3, HEPAN, B2GPG, B2GPM, B2GPA #### [address] #### LUPUS #### The performing lab is in the report. RBC (Bld) [#/Vol] 4.53 10*6/uL Normal 3.80-5.20 [facility] Comment on above: Performed By: #### A PTT, TSH5, HEMDF, LDH3, DDI2, BMP3M, ESR, FOLT3, URIC3, FEIBC, FERR3, B12, FT4M #### [place] [address] [place] [address] #### HVAAO, ANA3, HEPAN, B2GPG, B2GPM, B2GPA #### [address] #### LUPUS #### The performing lab is in the report. WBC (Bld) [#/Vol] 10.9 10*3/uL High 3.6-10.7 [facility] Comment on above: Performed By: #### A PTT, TSH5, HEMDF, LDH3, DDI2, BMP3M, ESR, FOLT3, URIC3, FEIBC, FERR3, B12, FT4M #### [address] [place] [address] #### HVAAO, ANA3, HEPAN, B2GPG, B2GPM, B2GPA #### [address] #### LUPUS #### The performing lab is in the report. Prothrombin Timeon 2 INR 1.0 Normal 0.9-1.1 [facility] Comment on above: Result Comment: Kwaku [...] FEIBC, FERR3, B12, FT4M #### [facility] [address] [place] [address] #### HVAAO, ANA3, HEPAN, B2GPG, B2GPM, B2GPA #### [address] [address] #### LUPUS #### The performing lab is in the report. PT Coag (PPP) [Time] 10.6 s Normal 9.0-12.0 [facility] Comment on above: Result Comment: . Performed By: #### A PTT, TSH5, HEMDF, LDH3, DDI2, BMP3M, ESR, FOLT3, URIC3, FEIBC, FERR3, B12, FT4M #### [facility] [address] [place] [address] #### HVAAO, ANA3, HEPAN, B2GPG, B2GPM, B2GPA #### [address] [address] #### LUPUS #### The performing lab is in the report. Troponin Ion 11-02-2021 Troponin I.cardiac [Mass/Vol] ng/mL Normal 0.000-0.034 [facility] Comment on above: Result Comment: . Performed By: #### A PTT, TSH5, HEMDF, LDH3, DDI2, BMP3M, ESR, FOLT3, URIC3, FEIBC, FERR3, B12, FT4M #### [facility] [address] [place] [address] #### HVAAO, ANA3, HEPAN, B2GPG, B2GPM, B2GPA #### [facility] [employer] [facility] [address] [place] [address] #### LUPUS #### The performing lab is in the report. VL Venous Duplex US Lower Ex t Lefton 11-02-2021 VL Venous Duplex US Lower Ext Left Patient Name: CHAY TEAGUE Ultrasound ACCESSION EXAM DATE/TIME PROCEDURE ORDERING PROVIDER [id number] 11/02/2021 13:09 EST VL Venous Duplex US [id number] -SHARRI FATIMA Lower Ext Left CPT code 55872 Reason For Exam (VL Venous Duplex US Lower Ext Left) left lower leg swelling - new onset today Report [facility] Lower Extremity Venous Duplex Report Patient Chay Teague : 1945 Study 11/02/2021 Name: Krystal (76yrs) Date: Age: 76 Account: [id number] Gender: F Loc: 444 BP: Ordering Physician: Sharri Fatima Musical String Maker: Mikal Serna RVT Interpreting Physician: Christofer Carrillo MD Location: [facility] Indications: Edema left entire leg. New [...] supine position. Images were obtained using a [employer] vascular ultrasound machine. The study was technically [...] Christofer Carrillo (more content not included)... Normal [facility] KNEE CMPLT, 4 OR MORE VIEWSo n 08-29-2021 KNEE CMPLT, 4 OR MORE VIEWS Patient Name: CHAY TEAGUE STUDY: KNEE; COMPLT, 4 OR MORE VIEWS INDICATION: knee pain M25.562: Knee pain, left. COMPARISON: None ACCESSION NUMBER(S): [id number] ORDERING CLINICIAN: NIMCO TURNER FINDINGS: Four views left knee demonstrate minimal degenerative change. No fracture seen. No osseous abnormality. IMPRESSION: No acute findings left knee. Electronically signed by: JACKLYN MURDOCK MD Normal [facility] Office Visit (Urgent Care)on 08-29-2021 Follow-up visit Diagnoses/Problems Assessed Knee pain, left (719.46) (M25.562) Orders Knee pain, left Xray Knee Complete 4 or more View; Status:Resulted - Requires Verification; Done: [id number] 07:42PM Performed:[facility]; Due:27Nov2021;Ordered; Stat; For:Knee pain, left; [...] appropriate use. Thx. Vitals Vital Signs Recorded: [id number] 07:41PM Xyvgpmdrfrs61.3 F Heart Uqst785 Fiklhaqlhvt32 Msovdgvn647 Cerritefn97 Height5 ft 1 in Azuvzn735 lb BMI Asbsvupslu62.9 kg/m2 BSA Calculated1.85 Tobacco Useb) No Fall Screeningb) One or more falls in the last year O2 Ojkduqcwhc31 Physical Exam Constitutional: Well developed, well nourished. [...] Results/Data Xray Knee Complete 4 or more [id number] 07:42PMNimco Turner Test NameResultFlagReference Xray Knee Complete 4 or more View(Report) FINAL REPORT Interpreted by: JACKLYN MURDOCK CHRISTOPHER, MD 08/29/21 19:50 Patient Name: CHAY TEAGUE STUDY: KNEE; COMPLT, 4 OR MORE VIEWS INDICATION: knee pain M25.562: Knee pain, left. COMPARISON: None ACCESSION NUMBER(S): [id number] ORDERING CLINICIAN: NIMCO TURNER FINDINGS: Four views left knee demonstrate minimal degenerative change. No fracture seen. No osseous abnormality. IMPRESSION: No acute findings left knee. Electronically signed by: JACKLYN MURDOCK 08/29/21 19:50 Signatures Electronically signed by : Nimco Turner, POWER AND RECOVERY SHIFT ENGINEER-ROOMING HOUSE KEEPER; Aug 29 2021 8:16PM EST (Author) [facility] Radiology[facility] 08-29-2021 XR Knee 4 Views Normal [...] 1.8 - 7.0 10*3/uL [facility] Work Phone: [phone] Basophils/100 WBC (Bld) 0.8 % 0.0 - 2.0 % [facility] Work Phone: Eosinophils (Bld) [#/Vol] 0.3 10*3/uL 0.0 - 0.5 10*3/uL [facility] Work Phone: [phone] Eosinophils/100 WBC (Bld) 3.2 % 1.0 - 6.0 % [facility] Work Phone: Granulocytes/100 WBC (Bld) 59.4 % 40.0 - 80.0 % [facility] Work Phone: 1) 222 Hematocrit (Bld) [Volume fraction] 44.8 % 35.0 - 47.0 % [facility] Work Phone: 1) 222 Hemoglobin.gastrointes tinal spec 1 Ql (Stl) 15.1 g/dL 11.7 - 16.0 g/dL [facility] Work Phone: [phone] Interpretation and review of laboratory results Abnormal [facility] Work Phone: 1() 222 Lymphocytes (Bld) [#/Vol] 2.3 10*3/uL 1.0 - 4.3 10*3/uL [facility] Work Phone: 1() 222 Lymphocytes/100 WBC (Bld) 28.2 % 20.0 - 40.0 % [facility] Work Phone: 1) 222 MCH (RBC) [Entitic mass] 30.4 pg 26.0 - 34.0 pg [facility] Work Phone: 1) 222 MCHC (RBC) [Mass/Vol] 33.6 % 32.0 - 36.0 % [facility] Work Phone: 1() 222 MCV (RBC) [Entitic vol] 90.3 fL 79.0 - 98.0 fL [facility] Work Phone: 1() 222 Monocytes (Bld) [#/Vol] 0.7 10*3/uL 0.0 - 0.8 10*3/uL [facility] Work Phone: 1) 222 Monocytes/100 WBC (Bld) 8.4 % 2.0 - 10.0 % [facility] Work Phone: 1() 222 Platelet distribution width (Bld) [Ratio] 14.6 % High 11.5 - 14.5 % [facility] Work Phone: 1() 222 Platelet mean volume (Bld) [Entitic vol] 8.0 fL 7.4 - 10.4 fL [facility] Work Phone: 1() 222 Platelets (Bld) [#/Vol] 268 10*3/uL 140 - 440 10*3/uL [facility] Work Phone: 1() 222 RBC (Bld) [#/Vol] 4.96 10*6/uL 3.80 - 5.2 0 10*6/uL [facility] Work Phone: WBC (Bld) [#/Vol] 8.2 10*3/uL 3.6 - 10.7 10*3/uL [facility] Work Phone: Test Performed by [facility], [address] , [place], [place] [address] Work Phone: [facility] Work Phone: Comp Metabolic Panelon 05-10 ALP [Catalytic activity/Vol] 122 U/L Normal 38-126 [facility] Comment on above: Performed By: #### A PTT, TSH5, HEMDF, LDH3, DDI2, BMP3M, ESR, FOLT3, URIC3, FEIBC, FERR3, B12, FT4M #### [facility] [address] [place] [address] #### HVAAO, ANA3, HEPAN, B2GPG, B2GPM, B2GPA #### [address] [address] #### LUPUS #### The performing lab is in the report. ALT [Catalytic activity/Vol] 19 U/L Normal 0-34 [facility] Comment on above: Result Comment: The ALT test is performed by an updated assay method. Please note that the reference intervals have been changed and are now sex specific. Performed By: #### A PTT, TSH5, HEMDF, LDH3, DDI2, BMP3M, ESR, FOLT3, URIC3, FEIBC, FERR3, B12, FT4M #### [facility] [address] [place] [address] #### HVAAO, ANA3, HEPAN, B2GPG, B2GPM, B2GPA #### [address] [address] #### LUPUS #### The performing lab is in the report. AST [Catalytic activity/Vol] 33 U/L Normal 15-46 [facility] Comment on above: Performed By: #### A PTT, TSH5, HEMDF, LDH3, DDI2, BMP3M, ESR, FOLT3, URIC3, FEIBC, FERR3, B12, FT4M #### [facility] [address] [place] [address] #### HVAAO, ANA3, HEPAN, B2GPG, B2GPM, B2GPA #### [address] #### LUPUS #### The performing lab is in the report. Calcium [Mass/Vol] 9.8 mg/dL Normal 8.4-10.4 [facility] Comment on above: Performed By: #### A PTT, TSH5, HEMDF, LDH3, DDI2, BMP3M, ESR, FOLT3, URIC3, FEIBC, FERR3, B12, FT4M #### [address] [place] #### HVAAO, ANA3, HEPAN, B2GPG, B2GPM, B2GPA #### [address] #### LUPUS #### The performing lab is in the report. Glucose [Mass/Vol] 98 mg/dL Normal 70-100 [facility] Comment on above: Performed By: #### A PTT, TSH5, HEMDF, LDH3, DDI2, BMP3M, ESR, FOLT3, URIC3, FEIBC, FERR3, B12, FT4M #### [address] [place] [address] #### HVAAO, ANA3, HEPAN, B2GPG, B2GPM, B2GPA #### [address] #### LUPUS #### The performing lab is in the report. Protein [Mass/Vol] 8.0 g/dL Normal 6.3-8.2 [facility] Comment on above: Performed By: #### A PTT, TSH5, HEMDF, LDH3, DDI2, BMP3M, ESR, FOLT3, URIC3, FEIBC, FERR3, B12, FT4M #### [address] [place] [address] #### HVAAO, ANA3, HEPAN, B2GPG, B2GPM, B2GPA #### [address] #### LUPUS #### The performing lab is in the report. Urea nitrogen [Mass/Vol] 22 mg/dL High 7-20 [facility] Comment on above: Performed By: #### A PTT, TSH5, HEMDF, LDH3, DDI2, BMP3M, ESR, FOLT3, URIC3, FEIBC, FERR3, B12, FT4M #### [address] [place] #### HVAAO, ANA3, HEPAN, B2GPG, B2GPM, B2GPA #### [address] #### LUPUS #### The performing lab is in the report. Anion gap [Moles/Vol] 6 mmol/L Normal 3-13 [facility] Comment on above: Performed By: #### A PTT, TSH5, HEMDF, LDH3, DDI2, BMP3M, ESR, FOLT3, URIC3, FEIBC, FERR3, B12, FT4M #### [address] [place] [address] #### HVAAO, ANA3, HEPAN, B2GPG, B2GPM, B2GPA #### [address] #### LUPUS #### The performing lab is in the report. Bilirubin [Mass/Vol] 0.7 mg/dL Normal 0.2-1.3 [facility] Comment on above: Performed By: #### A PTT, TSH5, HEMDF, LDH3, DDI2, BMP3M, ESR, FOLT3, URIC3, FEIBC, FERR3, B12, FT4M #### [address] [place] #### HVAAO, ANA3, HEPAN, B2GPG, B2GPM, B2GPA #### [address] [address] #### LUPUS #### The performing lab is in the report. CO2 [Moles/Vol] 30 mmol/L Normal 22-30 [facility] Comment on above: Performed By: #### A PTT, TSH5, HEMDF, LDH3, DDI2, BMP3M, ESR, FOLT3, URIC3, FEIBC, FERR3, B12, FT4M #### [facility] [address] [place] [address] #### HVAAO, ANA3, HEPAN, B2GPG, B2GPM, B2GPA #### [address] #### LUPUS #### The performing lab is in the report. Creatinine [Mass/Vol] 0.99 mg/dL Normal 0.52-1.25 [facility] Comment on above: Performed By: #### A PTT, TSH5, HEMDF, LDH3, DDI2, BMP3M, ESR, FOLT3, URIC3, FEIBC, FERR3, B12, FT4M #### [place] [address] [place] [address] #### HVAAO, ANA3, HEPAN, B2GPG, B2GPM, B2GPA #### [address] #### LUPUS #### The performing lab is in the report. GFR/1.73 sq M.predicted among blacks MDRD (S/P/Bld) [Vol rate/Area] 63.2 mL/min/{1.73_m2} Normal >60 [facility] Comment on above: Performed By: #### A PTT, TSH5, HEMDF, LDH3, DDI2, BMP3M, ESR, FOLT3, URIC3, FEIBC, FERR3, B12, FT4M #### [place] [address] [place] [address] #### HVAAO, ANA3, HEPAN, B2GPG, B2GPM, B2GPA #### [place] [address] #### LUPUS #### The performing lab is in the report. GFR/1.73 sq M.predicted among non-blacks MDRD (S/P/Bld) [Vol rate/Area] 54.6 mL/min/{1.73_m2} Abnormal >60 [facility] [employer] [facility] Comment on above: Result Comment: KDIG [...] FOLT3, URIC3, FEIBC, FERR3, B12, FT4M #### [facility] [address] [place] [address] #### HVAAO, ANA3, HEPAN, B2GPG, B2GPM, B2GPA #### [employer] [facility] [address] [place] [address] #### LUPUS #### The performing lab is in the report. Albumin [Mass/Vol] 4.1 g/dL Normal 3.5-5.0 [facility] [employer] [facility] Comment on above: Performed By: #### A PTT, TSH5, HEMDF, LDH3, DDI2, BMP3M, ESR, FOLT3, URIC3, FEIBC, FERR3, B12, FT4M #### [employer] [address] [place] [address] #### HVAAO, ANA3, HEPAN, B2GPG, B2GPM, B2GPA #### [address] #### LUPUS #### The performing lab is in the report. Chloride [Moles/Vol] 105 mmol/L Normal 98-107 [facility] Comment on above: Performed By: #### A PTT, TSH5, HEMDF, LDH3, DDI2, BMP3M, ESR, FOLT3, URIC3, FEIBC, FERR3, B12, FT4M #### [facility] [address] [place] [address] #### HVAAO, ANA3, HEPAN, B2GPG, B2GPM, B2GPA #### [address] #### LUPUS #### The performing lab is in the report. Potassium [Moles/Vol] 4.3 mmol/L Normal 3.5-5.1 [facility] Comment on above: Performed By: #### A PTT, TSH5, HEMDF, LDH3, DDI2, BMP3M, ESR, FOLT3, URIC3, FEIBC, FERR3, B12, FT4M #### [facility] [address] [place] [address] #### HVAAO, ANA3, HEPAN, B2GPG, B2GPM, B2GPA #### [address] #### LUPUS #### The performing lab is in the report. Sodium [Moles/Vol] 141 mmol/L Normal 135-145 [facility] Comment on above: Performed By: #### A PTT, TSH5, HEMDF, LDH3, DDI2, BMP3M, ESR, FOLT3, URIC3, FEIBC, FERR3, B12, FT4M #### [facility] [address] [place] [address] #### HVAAO, ANA3, HEPAN, B2GPG, B2GPM, B2GPA #### [address] #### LUPUS #### The performing lab is in the report. Comprehensive Metabolic Pane lOrdered By: Cynthia Uribe on 05-10-2021 Albumin [Mass/Vol] 4.1 g/dL 3.5 - 5.0 g/dL [facility] Work Phone: ALP (Bld) [Catalytic activity/Vol] 122 U/L 38 - 126 U/L [facility] Work Phone: [phone] ALT [Catalytic activity/Vol] 19 U/L 0 - 34 U/L [facility] Work Phone: [phone] Comment on above: The ALT test is perf ormed by an updated assay method. Please note that the reference intervals have been changed and are now sex specific. Anion gap [Moles/Vol] 6 mmol/L 3 - 13 mmol/L [facility] Work Phone: [phone] AST [Catalytic activity/Vol] 33 U/L 15 - 46 U/L [facility] Work Phone: [phone] Bilirubin [Mass/Vol] 0.7 mg/dL 0.2 - 1 .3 mg/dL [facility] Work Phone: [phone] Calcium [Mass/Vol] 9.8 mg/dL 8.4 - 10. 4 mg/dL [facility] Work Phone: [phone] Chloride [Moles/Vol] 105 mmol/L 98 - 10 7 mmol/L [facility] Work Phone: [phone] CO2 [Moles/Vol] 30 mmol/L 22 - 30 mmol/L [facility] Work Phone: [phone] Creatinine [Mass/Vol] 0.99 mg/dL 0.52 - 1.25 mg/dL [facility] Work Phone: [phone] EGFR IF NonAfrican Belarusian 54.6 mL/min Abnormal >60 [facility] Work Phone: [phone] Comment on above: KDIGO guidelines pro [...] fraction] 8.0 g/dL 6.3 - 8.2 g/dL [facility] Work Phone: [phone] GFR/1.73 sq M.predicted among blacks MDRD (S/P/Bld) [Vol rate/Area] 63.2 mL/min/{1.73_m2} >60 [facility] Work Phone: [phone] Glucose [Mass/Vol] 98 mg/dL 70 - 100 mg/dL [facility] Work Phone: [phone] Interpretation and review of laboratory results Abnormal [facility] Work Phone: [phone] Potassium [Moles/Vol] 4.3 mmol/L 3.5 - 5.1 mmol/L [facility] Work Phone: [phone] Sodium [Moles/Vol] 141 mmol/L 135 - 145 mmol/L [facility] Work Phone: [phone] Urea nitrogen (BldV) [Mass/Vol] 22 mg/dL High 7 - 20 mg/dL [facility] Work Phone: [phone] Test Performed by [facility], [address] [place] [address] , [address] Work Phone: [phone] [facility] Work Phone: [phone] Hemogram w/ Autodiffon 05-10 Abs Baso Cnt 0.1 10*3/uL Normal 0.0-0.2 [facility] [employer] [facility] Comment on above: Performed By: #### A PTT, TSH5, HEMDF, LDH3, DDI2, BMP3M, ESR, FOLT3, URIC3, FEIBC, FERR3, B12, FT4M #### [facility] [employer] [address] [place] [address] #### HVAAO, ANA3, HEPAN, B2GPG, B2GPM, B2GPA #### [address] [address] #### LUPUS #### The performing lab is in the report. Abs Neutrophile Cnt 4.9 10*3/uL Normal 1.8-7.0 [facility] Comment on above: Performed By: #### A PTT, TSH5, HEMDF, LDH3, DDI2, BMP3M, ESR, FOLT3, URIC3, FEIBC, FERR3, B12, FT4M #### [facility] [address] [place] [address] #### HVAAO, ANA3, HEPAN, B2GPG, B2GPM, B2GPA #### [address] #### LUPUS #### The performing lab is in the report. Basophils/100 WBC (Bld) 0.8 % Normal 0.0-2.0 [facility] Comment on above: Performed By: #### A PTT, TSH5, HEMDF, LDH3, DDI2, BMP3M, ESR, FOLT3, URIC3, FEIBC, FERR3, B12, FT4M #### [facility] [address] [place] [address] #### HVAAO, ANA3, HEPAN, B2GPG, B2GPM, B2GPA #### [address] #### LUPUS #### The performing lab is in the report. Eosinophils (Bld) [#/Vol] 0.3 10*3/uL Normal 0.0-0.5 [facility] Comment on above: Performed By: #### A PTT, TSH5, HEMDF, LDH3, DDI2, BMP3M, ESR, FOLT3, URIC3, FEIBC, FERR3, B12, FT4M #### [place] [address] [place] [address] #### HVAAO, ANA3, HEPAN, B2GPG, B2GPM, B2GPA #### [address] [place] #### LUPUS #### The performing lab is in the report. Eosinophils/100 WBC (Bld) 3.2 % Normal 1.0-6.0 [facility] Comment on above: Performed By: #### A PTT, TSH5, HEMDF, LDH3, DDI2, BMP3M, ESR, FOLT3, URIC3, FEIBC, FERR3, B12, FT4M #### [facility] [address] [place] [address] #### HVAAO, ANA3, HEPAN, B2GPG, B2GPM, B2GPA #### [address] #### LUPUS #### The performing lab is in the report. Erythrocyte distribution width (RBC) [Ratio] 14.6 % High 11.5-14.5 [facility] Comment on above: Performed By: #### A PTT, TSH5, HEMDF, LDH3, DDI2, BMP3M, ESR, FOLT3, URIC3, FEIBC, FERR3, B12, FT4M #### [facility] [address] [facility] [place] #### HVAAO, ANA3, HEPAN, B2GPG, B2GPM, B2GPA #### [address] #### LUPUS #### The performing lab is in the report. Granulocytes/100 WBC (Bld) 59.4 % Normal 40.0-80.0 [facility] Comment on above: Performed By: #### A PTT, TSH5, HEMDF, LDH3, DDI2, BMP3M, ESR, FOLT3, URIC3, FEIBC, FERR3, B12, FT4M #### [facility] [address] [place] [address] #### HVAAO, ANA3, HEPAN, B2GPG, B2GPM, B2GPA #### [address] #### LUPUS #### The performing lab is in the report. Hematocrit (Bld) [Volume fraction] 44.8 % Normal 35.0-47.0 [facility] Comment on above: Performed By: #### A PTT, TSH5, HEMDF, LDH3, DDI2, BMP3M, ESR, FOLT3, URIC3, FEIBC, FERR3, B12, FT4M #### [facility] [address] [facility] [place] [facility] [place] [address] #### HVAAO, ANA3, HEPAN, B2GPG, B2GPM, B2GPA #### [address] #### LUPUS #### The performing lab is in the report. Hemoglobin (Bld) [Mass/Vol] 15.1 g/dL Normal 11.7-16.0 [facility] Comment on above: Performed By: #### A PTT, TSH5, HEMDF, LDH3, DDI2, BMP3M, ESR, FOLT3, URIC3, FEIBC, FERR3, B12, FT4M #### [address] [place] [address] #### HVAAO, ANA3, HEPAN, B2GPG, B2GPM, B2GPA #### [address] #### LUPUS #### The performing lab is in the report. Lymphocytes (Bld) [#/Vol] 2.3 10*3/uL Normal 1.0-4.3 [facility] Comment on above: Performed By: #### A PTT, TSH5, HEMDF, LDH3, DDI2, BMP3M, ESR, FOLT3, URIC3, FEIBC, FERR3, B12, FT4M #### [address] [place] [address] #### HVAAO, ANA3, HEPAN, B2GPG, B2GPM, B2GPA #### [address] #### LUPUS #### The performing lab is in the report. Lymphocytes/100 WBC (Bld) 28.2 % Normal 20.0-40.0 [facility] Comment on above: Performed By: #### A PTT, TSH5, HEMDF, LDH3, DDI2, BMP3M, ESR, FOLT3, URIC3, FEIBC, FERR3, B12, FT4M #### [facility] [address] [place] [address] #### HVAAO, ANA3, HEPAN, B2GPG, B2GPM, B2GPA #### [address] #### LUPUS #### The performing lab is in the report. MCH (RBC) [Entitic mass] 30.4 pg Normal 26.0-34.0 [facility] Comment on above: Performed By: #### A PTT, TSH5, HEMDF, LDH3, DDI2, BMP3M, ESR, FOLT3, URIC3, FEIBC, FERR3, B12, FT4M #### [facility] [address] [place] [address] #### HVAAO, ANA3, HEPAN, B2GPG, B2GPM, B2GPA #### [address] #### LUPUS #### The performing lab is in the report. MCHC 33.6 % Normal 32.0-36.0 [facility] Comment on above: Performed By: #### A PTT, TSH5, HEMDF, LDH3, DDI2, BMP3M, ESR, FOLT3, URIC3, FEIBC, FERR3, B12, FT4M #### [facility] [address] [facility] [place] [facility] [place] [address] #### HVAAO, ANA3, HEPAN, B2GPG, B2GPM, B2GPA #### [address] #### LUPUS #### The performing lab is in the report. MCV (RBC) [Entitic vol] 90.3 fL Normal 79.0-98.0 [facility] Comment on above: Performed By: #### A PTT, TSH5, HEMDF, LDH3, DDI2, BMP3M, ESR, FOLT3, URIC3, FEIBC, FERR3, B12, FT4M #### [address] [place] [address] #### HVAAO, ANA3, HEPAN, B2GPG, B2GPM, B2GPA #### [address] #### LUPUS #### The performing lab is in the report. Monocytes (Bld) [#/Vol] 0.7 10*3/uL Normal 0.0-0.8 [facility] Comment on above: Performed By: #### A PTT, TSH5, HEMDF, LDH3, DDI2, BMP3M, ESR, FOLT3, URIC3, FEIBC, FERR3, B12, FT4M #### [address] [place] [address] #### HVAAO, ANA3, HEPAN, B2GPG, B2GPM, B2GPA #### [address] #### LUPUS #### The performing lab is in the report. Monocytes/100 WBC (Bld) 8.4 % Normal 2.0-10.0 [facility] Comment on above: Performed By: #### A PTT, TSH5, HEMDF, LDH3, DDI2, BMP3M, ESR, FOLT3, URIC3, FEIBC, FERR3, B12, FT4M #### [address] [place] #### HVAAO, ANA3, HEPAN, B2GPG, B2GPM, B2GPA #### [address] #### LUPUS #### The performing lab is in the report. Platelet mean volume (Bld) [Entitic vol] 8.0 fL Normal 7.4-10.4 [facility] Comment on above: Performed By: #### A PTT, TSH5, HEMDF, LDH3, DDI2, BMP3M, ESR, FOLT3, URIC3, FEIBC, FERR3, B12, FT4M #### [facility] [address] [place] [address] #### HVAAO, ANA3, HEPAN, B2GPG, B2GPM, B2GPA #### [address] #### LUPUS #### The performing lab is in the report. Platelets (Bld) [#/Vol] 268 10*3/uL Normal 140-440 [facility] Comment on above: Performed By: #### A PTT, TSH5, HEMDF, LDH3, DDI2, BMP3M, ESR, FOLT3, URIC3, FEIBC, FERR3, B12, FT4M #### [address] [place] [facility] #### HVAAO, ANA3, HEPAN, B2GPG, B2GPM, B2GPA #### [address] #### LUPUS #### The performing lab is in the report. RBC (Bld) [#/Vol] 4.96 10*6/uL Normal 3.80-5.20 [facility] Comment on above: Performed By: #### A PTT, TSH5, HEMDF, LDH3, DDI2, BMP3M, ESR, FOLT3, URIC3, FEIBC, FERR3, B12, FT4M #### [address] [place] [id number] #### HVAAO, ANA3, HEPAN, B2GPG, B2GPM, B2GPA #### [address] #### LUPUS #### The performing lab is in the report. WBC (Bld) [#/Vol] 8.2 10*3/uL Normal 3.6-10.7 [facility] Comment on above: Performed By: #### A PTT, TSH5, HEMDF, LDH3, DDI2, BMP3M, ESR, FOLT3, URIC3, FEIBC, FERR3, B12, FT4M #### [address] [place] [address] #### HVAAO, ANA3, HEPAN, B2GPG, B2GPM, B2GPA #### [employer] [facility] [address] [place] [address] #### LUPUS #### The performing lab is in the report. Hep C Antibodyon 05-10-2021 Hep C Antibody Not detected Normal Not Detected [facility] [employer] Comment on above: Result Comment: Patients with DETECTED Hepatitis C Ab results should have a new specimen submitted for supplemental testing with a Hepatitis C Quantitative RNA assay (viral load), if clinically indicated. Performed By: #### A PTT, TSH5, HEMDF, LDH3, DDI2, BMP3M, ESR, FOLT3, URIC3, FEIBC, FERR3, B12, FT4M #### [employer] [address] [place] [address] #### HVAAO, ANA3, HEPAN, B2GPG, B2GPM, B2GPA #### [employer] [address] [place] [address] #### LUPUS #### The performing lab is in the report. Hepatitis C AntibodyOrdered By: Cynthia Uribe on 05-10-2021 Hepatitis C Ab Not detected Not Detected NA [employer] Work Phone: Comment on above: Patients with DETECTED Hepatitis C Ab results should have a new specimen submitted for supplemental testing with a Hepatitis C Quantitative RNA assay (viral load), if clinically indicated. Test Performed by [employer] [facility], [address] [place] [address] [facility] Work Phone: [employer] Work Phone: TSH without ReflexOrdered By : Cynthia Uribe on 05-10-2021 TSH Qn 2.583 u[IU]/mL 0.465 - 4.680 u[IU]/mL [employer] Work Phone: Test Performed by [employer] [facility], [address] , [place], [place] [address] [facility] Work Phone: [employer] Work Phone: Thyroid Stim. Hormoneon 04-22 Thyroid Stim. Hormone 2.583 u[IU]/mL Normal 0.465-4.68 0 [facility] Comment on above: Performed By: #### A PTT, TSH5, HEMDF, LDH3, DDI2, BMP3M, ESR, FOLT3, URIC3, FEIBC, FERR3, B12, FT4M #### [facility] [address] [place] [address] #### HVAAO, ANA3, HEPAN, B2GPG, B2GPM, B2GPA #### [facility] [address] [place] [address] #### LUPUS #### The performing lab is in the report. Vit D 25-OH, Totalon 021 Vit D 25-OH, Total 51 ng/mL Normal 30-100 [facility] Comment on above: Result Comment: Ther apy is based on measurement of Total 25- OHD with the following classification levels: Less than 20 ng/mL: Indicative of Vit D deficiency 20-30 ng/mL: Suggests Vit D insufficiency Optimal: Greater than or equal to 30 ng/mL Test performed by [employer], measuring Total Vitamin D, not individual fractions. Performed By: #### A PTT, TSH5, HEMDF, LDH3, DDI2, BMP3M, ESR, FOLT3, URIC3, FEIBC, FERR3, B12, FT4M #### [facility] [address] [place] [address] #### HVAAO, ANA3, HEPAN, B2GPG, B2GPM, B2GPA #### [address] [address] #### LUPUS #### The performing lab is in the report. Vitamin D 25 HydroxyOrdered By: Cynthia Uribe on 05-10-2021 Vit D, 25-Hydroxy 51 ng/mL 30 - 100 ng/mL [facility] Work Phone: Comment on above: Therapy is based on measurement of Total 25-OHD with the following classification levels: Less than 20 ng/mL: Indicative of Vit D deficiency 20-30 ng/mL: Suggests Vit D insufficiency Optimal: Greater than or equal to 30 ng/mL Test performed by [employer], measuring Total Vitamin D, not individual fractions. Test Performed by [facility], [address] [place], [place] [address] [facility] Work Phone: [facility] Work Phone: Brain Natriuretic Peptideon 11-02-2020 Natriuretic peptide B (Bld) [Mass/Vol] 51 pg/mL 0 - 450 pg/mL [facility] Work Phone: COVID-19, Rapidon 11-02-2020 Sodium [Moles/Vol] see below [facility] Work Phone: Comment on above: Not Detected Expected Result: Not Detected _ Isothermal nucleic acid amplification performed on the [employer] System by the [facility] Negative results do not preclude SARS-CoV-2 infection and should not be used as the sole basis for treatment or other patient management decisions. This assay was developed by [employer] and distributed under an Emergency Use Authorization (EUA) granted by the FDA for the qualitative detection of SARS-CoV-2 nucleic acid. Provider and patient fact sheets can be found at https://www.fda.gov/media/891908/download and https://www.fda.gov/media/858342/download. Test Performed by [facility], [address] [place], [place] [address] [facility] Work Phone: CT Abdomen Pelvis W Contrast on 11-02-2020 Patient Name: CHAY TEAGUE [employer] ACCESSION EXAM DATE/TIME PROCEDURE ORDERING PROVIDER [id number] 11/02/2020 17:[address] Abdomen/Pelvis w/ IV [id number] JAME DEGROOT Contrast (IV Onl CPT code 57257 Q9967 Reason For Exam (CT Abdomen/Pelvis w/ [...] Phone: Jt, [facility] 6:01 PM EST Patient Name: CHAY TEAGUE [employer] ACCESSION EXAM DATE/TIME PROCEDURE ORDERING PROVIDER [id number] 11/02/2020 17:[address] Abdomen/Pelvis w/ IV [id number] -JAME BEST Contrast (IV Onl CPT code 07016 Q9967 Reason For Exam (CT Abdomen/Pelvis w/ [...] Tomography ACCESSION EXAM DATE/TIME PROCEDURE ORDERING PROVIDER [id number] 11/02/2020 17:[address] Head or Brain w/o [id number] -GOMBASH, JAME Contrast CPT code 97871 Reason For Exam (CT Head or Brain [...] Time: 11/02/2020 5:37 [facility] Work Phone: [facility] From [facility] - 11/02/2020 5:37 PM EST Patient Name: CHAY TEAGUE Computed Tomography ACCESSION EXAM DATE/TIME PROCEDURE ORDERING PROVIDER [id number] 11/02/2020 17:[address] Head or Brain w/o [id number] -GOMBASH, JAME Contrast CPT code 67849 Reason For Exam (CT Head or Brain [...] Tomography ACCESSION EXAM DATE/TIME PROCEDURE ORDERING PROVIDER [id number] 11/02/2020 17:36 EST CTA Chest w/ + w/o [id number] -JAME BEST Contrast CPT code 26170 Reason For Exam (CTA Chest w/ + [...] Phone: Jt, [facility] Incoming Radiology Results From [facility] - 11/02/2020 5:51 PM EST Patient Name: CHAY TEAGUE Comput[employer] Tomography ACCESSION EXAM DATE/TIME PROCEDURE ORDERING PROVIDER [id number] 11/02/2020 17:36 EST CTA Chest w/ + w/o [id number] -JAME BEST Contrast CPT code 03086 Reason For Exam (CTA Chest w/ + [...] on --- Final --- Dictating Physician: MD HEATH, CLEVELAND CAST Signed Date and Time: 11/02/2020 5:50 pm Signed by: MD JOE YUN ROBERT Transcribed Date and Time: 11/02/2020 5:51 [facility] Work Phone: -[phone] Comprehensive Metabolic Pane skylar 11-02-2020 Albumin [Mass/Vol] 3.8 g/dL 3.5 - 5 g/dL [facility] Work Phone: ALP [Catalytic activity/Vol] 113 U/L 38 - 126 U/L [facility] Work Phone: ALT [Catalytic activity/Vol] 22 U/L 0 - 34 U/L [facility] Work Phone: [phone] Comment on above: The ALT test is perf ormed by an updated assay method. Please note that the reference intervals have been changed and are now sex specific. Anion gap [Moles/Vol] 7 mmol/L [facility] Work Phone: -[phone] AST [Catalytic activity/Vol] 42 U/L 15 - 46 U/L [facility] Work Phone: [phone] Bilirubin Ql (U) 0.5 mg/dL 0.2 - 1.3 mg/dL [facility] Work Phone: [phone] Calcium [Mass/Vol] 9.1 mg/dL 8.4 - 10. 4 mg/dL [facility] Work Phone: [phone] Chloride [Moles/Vol] 102 mmol/L 98 - 10 7 mmol/L [facility] Work Phone: [phone] CO2 [Moles/Vol] 29 mmol/L 22 - 30 mmol/L [facility] Work Phone: Creatinine [Mass/Vol] 1.02 mg/dL 0.52 - 1.25 mg/dL [facility] Work Phone: EGFR IF NonAfrican Belarusian 52.8 mL/min Abnormal >60 [facility] Work Phone: Comment on above: KDIGO [...] [Mass/Vol] 100 mg/dL 70 - 100 mg/dL [facility] Work Phone: Interpretation and review of laboratory results Abnormal [facility] Work Phone: Potassium [Moles/Vol] 3.3 mmol/L Low 3.5 - 5.1 mmol/L [facility] Work Phone: Protein [Mass/Vol] 7.0 g/dL 6.3 - 8.2 g/dL [facility] Work Phone: Sodium [Moles/Vol] 138 mmol/L 135 - 145 mmol/L [facility] Work Phone: Urea nitrogen [Mass/Vol] 16 mg/dL 7 - 20 mg/dL [facility] Work Phone: Hemogram (CBC) w/Auto Diffon 11-02-2020 Absolute Baso # 0.1 10*3/uL 0 - 0.2 10*3/uL [facility] Work Phone: [phone] Absolute Neut # 5.4 10*3/uL 1.8 - 7 10*3/uL [facility] Work Phone: [phone] Basophils/100 WBC (Bld) 0.7 % 0 - 2 % [facility] Work Phone: [phone] Eosinophils (Bld) [#/Vol] 0.3 10*3/uL 0 - 0.5 10*3/uL [facility] Work Phone: [phone] Eosinophils/100 WBC (Bld) 3.2 % 1 - 6 % [facility] Work Phone: [phone] Erythrocyte distribution width (RBC) [Ratio] 14.7 % High 11.5 - 14.5 % [facility] Work Phone: [phone] Granulocytes/100 WBC (Bld) 54.6 % 40 - 80 % [facility] Work Phone: [phone] Hematocrit (Bld) [Volume fraction] 40.5 % 35 - 47 % [facility] Work Phone: [phone] Hemoglobin (Bld) [Mass/Vol] 13.4 g/dL 11.7 - 16 g/dL [facility] Work Phone: [phone] Interpretation and review of laboratory results Abnormal [facility] Work Phone: [phone] Lymphocytes (Bld) [#/Vol] 3.2 10*3/uL 1 - 4.3 10*3/uL [facility] Work Phone: [phone] Lymphocytes/100 WBC (Bld) 32.4 % 20 - 40 % [facility] Work Phone: [phone] MCH (RBC) [Entitic mass] 29.7 pg 26 - 34 pg [facility] Work Phone: [phone] MCHC (RBC) [Mass/Vol] 33.2 % 32 - 36 % [facility] Work Phone: [phone] MCV (RBC) [Entitic vol] 89.5 fL 79 - 98 fL [facility] Work Phone: [phone] Monocytes (Bld) [#/Vol] 0.9 10*3/uL High 0 - 0.8 10*3/uL [employer] Work Phone: [phone] Monocytes/100 WBC (Bld) 9.1 % 2 - 10 % [facility] Work Phone: [phone] Platelet mean volume (Bld) [Entitic vol] 9.0 fL 7.4 - 10.4 fL [facility] Work Phone: [phone] Platelets (Bld) [#/Vol] 295 10*3/uL 140 - 440 10*3/uL [facility] Work Phone: [phone] RBC (Bld) [#/Vol] 4.53 10*6/uL 3.8 - 5.2 10*6/uL [employer] Work Phone: [phone] WBC (Bld) [#/Vol] 9.9 10*3/uL 3.6 - 10.7 10*3/uL [facility] Work Phone: [phone] Test Performed by [facility], [address] [place] [address] [employer] Work Phone: [phone] Lactic Acid, Plasmaon 2020 Lactate [Moles/Vol] 1.4 mmol/L 0.7 - 2 mmol/L [facility] Work Phone: [phone] Otheron 11-02-2020 Test Performed by [facility], [address] [place] [address] [employer] Work Phone: [phone] Test Performed by [facility], [address] [place] [address] [employer] Work Phone: [phone] Protime-INRon 11-02-2020 INR Coag (PPP) [Relative time] {INR} [facility] Work Phone: [phone] Comment on above: Recommended Anticoag ulant [...] Comment on above: . Test Performed by [facility], [address] [place], [place] [address] [facility] Work Phone: Troponin x1on 11-02-2020 Troponin I.cardiac [Mass/Vol] ng/mL 0 - 0.034 ng/mL [facility] Work Phone: Comment on above: . Culture, Urineon 03-08-2020 Bacteria identified Cx Nom (U) No growth (<1,000 CFU/ml). [place] Test Performed by [facility], [address] [place] [address] [place] CBCon 03-07-2020 Erythrocyte distribution width (RBC) [Ratio] 15.4 % High 11.5 - 14.5 % [place] Hematocrit (Bld) [Volume fraction] 38.1 % 35 - 47 % [place] Hemoglobin (Bld) [Mass/Vol] 12.7 g/dL 11.7 - 16 g/dL [place] Interpretation and review of laboratory results Abnormal [place] MCH (RBC) [Entitic mass] 29.9 pg 26 - 34 pg [place] MCHC (RBC) [Mass/Vol] 33.4 % 32 - 36 % [place] MCV (RBC) [Entitic vol] 89.5 fL 79 - 98 fL [place] Platelet mean volume (Bld) [Entitic vol] 8.7 fL 7.4 - 10.4 fL [place] Platelets (Bld) [#/Vol] 248 10*3/uL 140 - 440 10*3/uL [place] RBC (Bld) [#/Vol] 4.26 10*6/uL 3.8 - 5.2 10*6/uL [place] WBC (Bld) [#/Vol] 6.2 10*3/uL 3.6 - 10.7 10*3/uL [place] Test Performed by [facility], [address], [place], [place] [address] [place], [place] Comprehensive Metabolic Pane l w/ Reflex to MGon 03-07-2020 Albumin [Mass/Vol] 3.5 g/dL 3.5 - 5 g/dL [place] ALP [Catalytic activity/Vol] 125 U/L 38 - 126 U/L [place] ALT [Catalytic activity/Vol] 31 U/L 0 - 34 U/L [place] Comment on above: The ALT test is perf ormed by an updated assay method. Please note that the reference intervals have been changed and are now sex specific. Anion gap [Moles/Vol] 10 mmol/L [place], [place] AST [Catalytic activity/Vol] 45 U/L 15 - 46 U/L [place] Bilirubin Ql (U) 0.6 mg/dL 0.2 - 1.3 mg/dL [place] Calcium [Mass/Vol] 8.3 mg/dL Low 8.4 - 10. 4 mg/dL [place] Chloride [Moles/Vol] 107 mmol/L 98 - 10 7 mmol/L [place] CO2 [Moles/Vol] 27 mmol/L 22 - 30 mmol/L [place] Creatinine [Mass/Vol] 0.76 mg/dL 0.52 - 1.25 mg/dL [place] EGFR IF NonAfrican [place] 75.7 mL/min >60 [place] Comment on above: KDIGO guidelines pro [...] MDRD (S/P/Bld) [Vol rate/Area] 87.8 mL/min/{1.73_m2} >60 [facility] [place], [place] Glucose [Mass/Vol] 101 mg/dL High 70 - 100 mg/dL [facility], [place] Potassium [Moles/Vol] 3.7 mmol/L 3.5 - 5.1 mmol/L [facility], [place] Protein [Mass/Vol] 6.6 g/dL 6.3 - 8.2 g/dL [facility] [place] Sodium [Moles/Vol] 144 mmol/L 135 - 145 mmol/L [facility] [place] Urea nitrogen [Mass/Vol] 15 mg/dL 7 - 20 mg/dL [facility], [place] ECHO Complete 2D W Doppler W [place] 03-07-2020 TRANSTHORACIC ECHOCARDIOGRAM PATIENT: Chay Teague STUDY DATE: 03/07/2020 : 1945 AGE: 74 HT/WT: 160 cm (63 90.7 kg in) (199.6 lb) GENDER: F BP: 160 / 101 LOCATION: [facility] PATIENT Observation [address] [facility] STATUS: *ORDERING PHYSICIAN: * Delia ChavezREADING PHYSICIAN: * John Whitlock MD, *SQUEEGEE FINISHER: * Skye Garcia [facility] INDICATIONS: TIA CONCLUSIONS SUMMARY: 1. Left [...] range. Electronically signed by John Whitlock MD, [facility] 03/07/2020 12:07 Prior Signatures: [facility], [facility] Incoming Cardiology Results From [facility] - 03/07/2020 12:08 PM EDT TRANSTHORACIC ECHOCARDIOGRAM PATIENT: Chay Teague STUDY DATE: 03/07/2020 : 1945 AGE: 74 HT/WT: 160 cm (63 90.7 kg in) (199.6 lb) GENDER: F BP: 160 / 101 LOCATION: [facility] PATIENT Observation [facility] STATUS: *ORDERING PHYSICIAN: * Delia Chavez *READING PHYSICIAN: * John Whitlock MD, *SQUEEGEE FINISHER: * Skye Garcia [facility] INDICATIONS: TIA CONCLUSIONS SUMMARY: 1. Left [...] range. Electronically signed by John Whitlock MD, [facility] 03/07/2020 12:07 Prior Signatures: [employer] EKG 12 Leadon 03-07-2020 US Toxicology [employer] [facility] Test Date: 2020-03-06 Pat Name: Chay Teague Department: Room: [facility] Gender: F Photo Intern: 2014 : 1945 Requested By: EMILY REESE Order Number: [id number] Reading MD: Niels Reese Measurements Intervals [place] Rate: 95 P: 70 NC: 176 QRS: -36 QRSD: 120 T: 45 QT: 388 QTc: 488 Interpretive Statements SINUS RHYTHM PROBABLE LEFT ATRIAL ABNORMALITY IVCD, CONSIDER ATYPICAL RBBB Compared to ECG 03/06/2017 15:56:33 No significant changes Electronically Signed On 03-07-2020 16:39:39 EDT by Niels Reese [employer] Jt, [facility] Incoming Cardiology Results From [facility] - 03/07/2020 4:40 PM EDT [facility] Test Date: 2020-03-06 Pat Name: Chay Teague Department: Room: 453 Gender: F Photo Intern: 2014 : 1945 Requested By: EMILY REESE Order Number: [id number] Reading MD: Niels Reese Measurements Intervals [place] Rate: 95 P: 70 NC: 176 QRS: -36 QRSD: 120 T: 45 QT: 388 QTc: 488 Interpretive Statements SINUS RHYTHM PROBABLE LEFT ATRIAL ABNORMALITY IVCD, CONSIDER ATYPICAL RBBB Compared to ECG 03/06/2017 15:56:33 No significant changes Electronically Signed On 03-07-2020 16:39:39 EDT by Niels Reese [place] FOLATEon 03-07-2020 Folate 18.4 ng/mL 2.8 - 20 ng/mL [place] Hemoglobin A1con 03-07-2020 eAG 111 mg/dL [place] HbA1c (Bld) [Mass fraction] 5.5 % 4 - 5.7 % [place] Comment on above: --HgbA1C levels may not be accurate in patients who have renal disease, received recent blood transfusions, are anemic, or who have dyshemoglobinemia. Test Performed by [facility], [address] [place] [address] [place], [place] [address] [place] Lipid panel - fastingon 02-20 Cholesterol [Mass/Vol] 193 mg/dL <200 [place] Cholesterol in HDL [Mass/Vol] 56 mg/dL 40 - 60 mg/dL [place] Cholesterol in LDL [Mass/Vol] 107 mg/dL Abnormal <100 [place] Cholesterol.total/Chol esterol in HDL [Mass ratio] 3 {ratio} [place] Comment on above: Ref Range: < 3 Low Risk for CHD 3-6 Mod Risk for CHD > 6 High Risk for CHD Triglyceride [Mass/Vol] 148 mg/dL <150 [place] MRA head without contrast (R EVIEW IMAGING OBTAIN IN THE LAST 2 yrs, to determine indication )on 03-07-2020 Patient Name: CHAY TEAGUE ---MRI--- Exam Date/Time 03/07/2020 11:13:52 EDT Exam MRA Head w/o Contrast Ordering Physician DELIA PIÑA Accession Number [id number] CPT4 Codes 68630 () Reason For Exam acute confusion Report [...] NICHOLAS Transcribed Date and Time: 03/07/2020 12:14 [facility], [place] J[facility], [facility] Incoming Radiology Results From [facility] - 03/07/2020 12:14 PM EDT Patient Name: CHAY TEAGUE ---MRI--- Exam Date/Time 03/07/2020 11:13:52 EDT Exam MRA Head w/o Contrast Ordering Physician DELIA PIÑA Accession Number [id number] CPT4 Codes 50480 () Reason For Exam acute confusion Report [...] NICHOLAS Transcribed Date and Time: 03/07/2020 12:14 [place] MRI brain with and without c ontrast (REVIEW IMAGING RECORDS IN THE LAST 2 YRS to determine INDICATION prior to oder )on 03-07-2020 Jt, [facility] Incoming Radiology Results From [facility] - 03/07/2020 12:14 PM EDT Patient Name: CHAY TEAGUE ---MRI--- Exam Date/Time 03/07/2020 11:13:30 EDT Exam MRI Brain w/ + w/o Contrast Ordering Physician DELIA PIÑA Accession Number [id number] CPT4 Codes 13219 () Reason For Exam acute confusion Report [...] NICHOLAS Transcribed Date and Time: 03/07/2020 12:14 [place] Patient Name: CHAY TEAGUE ---MRI--- Exam Date/Time 03/07/2020 11:13:30 EDT Exam MRI Brain w/ + w/o Contrast Ordering Physician DELIA PIÑA Accession Number [id number] CPT4 Codes 59818 () Reason For Exam acute confusion Report [...] NICHOLAS Transcribed Date and Time: 03/07/2020 12:14 [facility] [place] Otheron 03-07-2020 Test Performed by [facility], [address] Interpretation and review of laboratory results Abnormal [place] Test Performed by [facility], [address] [place], [address] TSH without Reflexon 020 TSH Qn 2.668 u[IU]/mL 0.465 - 4.68 u[IU]/mL [place] Test Performed by [facility], [address] Troponinon 03-07-2020 Troponin I.cardiac [Mass/Vol] 0.013 ng/mL 0 - 0.034 ng/mL [place] Comment on above: . Test Performed by [facility], [address], [place], [place] [address] [place] Vitamin B12on 03-07-2020 Cobalamin (Vitamin B12) [Mass/Vol] 343 pg/mL 239 - 931 pg/mL [place] Add On Lab Teston 03-06-2020 Sodium [Moles/Vol] Accepted [place] Comment on above: Specimen available & acceptable for analysis. Test Performed by [facility], [address] , [place], [place] [address] [place] [address] Ammoniaon 03-06-2020 Ammonia (P) [Mass/Vol] 13 umol/L 9 - 3 0 umol/L [place] Test Performed by [facility], [address], [place], [place] [address] [place] [address] Brain Natriuretic Peptideon 03-06-2020 Natriuretic peptide B (Bld) [Mass/Vol] 65 pg/mL 0 - 450 pg/mL [place] CBC Auto Differentialon 02-20 Absolute Baso # 0.1 10*3/uL 0 - 0.2 10*3/uL [place] Absolute Neut # 4.8 10*3/uL 1.8 - 7 10*3/uL [place] Basophils/100 WBC (Bld) 0.8 % 0 - 2 % [place] Eosinophils (Bld) [#/Vol] 0.3 10*3/uL 0 - 0.5 10*3/uL [place] Eosinophils/100 WBC (Bld) 3.7 % 1 - 6 % [place] Erythrocyte distribution width (RBC) [Ratio] 15.3 % High 11.5 - 14.5 % [place] Granulocytes/100 WBC (Bld) 58.5 % 40 - 80 % [place] Hematocrit (Bld) [Volume fraction] 38.6 % 35 - 47 % [place] Hemoglobin (Bld) [Mass/Vol] 13.3 g/dL 11.7 - 16 g/dL [place] Interpretation and review of laboratory results Abnormal [place] Lymphocytes (Bld) [#/Vol] 2.2 10*3/uL 1 - 4.3 10*3/uL [place] Lymphocytes/100 WBC (Bld) 27.0 % 20 - 40 % [place] MCH (RBC) [Entitic mass] 30.2 pg 26 - 34 pg [place] MCHC (RBC) [Mass/Vol] 34.5 % 32 - 36 % [place] MCV (RBC) [Entitic vol] 87.4 fL 79 - 98 fL [place] Monocytes (Bld) [#/Vol] 0.8 10*3/uL 0 - 0.8 10*3/uL [place] Monocytes/100 WBC (Bld) 10.0 % 2 - 10 % [place] Platelet mean volume (Bld) [Entitic vol] 9.1 fL 7.4 - 10.4 fL [place] Platelets (Bld) [#/Vol] 302 10*3/uL 140 - 440 10*3/uL [place] RBC (Bld) [#/Vol] 4.42 10*6/uL 3.8 - 5.2 10*6/uL [place] WBC (Bld) [#/Vol] 8.2 10*3/uL 3.6 - 10.7 10*3/uL [place] Test Performed by [facility], [address] , [address] HEAD WO CONTRASTon 2019 Patient Name: CHAY TEAGUE ---CT--- Exam Date/Time 03/06/2020 13:04:[address] Head or Brain w/o Contrast Ordering Physician MD REESE GREGORY M Accession Number [id number] CPT4 Codes 42495 () Reason For Exam Altered mental status [...] JASON Transcribed Date and Time: 03/06/2020 1:13 [place] Jt, [facility] Incoming Radiology Results From [facility] - 03/06/2020 1:13 PM EDT Patient Name: CHAY TEAGUE ---CT--- Exam Date/Time 03/06/2020 13:04:[address] Head or Brain w/o Contrast Ordering Physician MD REESE GREGORY M Accession Number [id number] CPT4 Codes 77519 () Reason For Exam Altered mental status [...] JASON Transcribed Date and Time: 03/06/2020 1:13 [place] Comprehensive Metabolic Pane skylar 03-06-2020 Albumin [Mass/Vol] 4.0 g/dL 3.5 - 5 g/dL [place] ALP [Catalytic activity/Vol] 135 U/L High 38 - 126 U/L [place] ALT [Catalytic activity/Vol] 27 U/L 0 - 34 U/L [place] Comment on above: The ALT test is perf ormed by an updated assay method. Please note that the reference intervals have been changed and are now sex specific. Anion gap [Moles/Vol] 8 mmol/L [place] AST [Catalytic activity/Vol] 43 U/L 15 - 46 U/L [place] Bilirubin Ql (U) 0.7 mg/dL 0.2 - 1.3 mg/dL [place] Calcium [Mass/Vol] 9.1 mg/dL 8.4 - 10. 4 mg/dL [place] Chloride [Moles/Vol] 103 mmol/L 98 - 10 7 mmol/L [place] CO2 [Moles/Vol] 29 mmol/L 22 - 30 mmol/L [place] Creatinine [Mass/Vol] 0.83 mg/dL 0.52 - 1.25 mg/dL [place] EGFR IF NonAfrican Belarusian 68.1 mL/min >60 [place] Comment on above: KDIGO guidelines pro [...] MDRD (S/P/Bld) [Vol rate/Area] 78.9 mL/min/{1.73_m2} >60 [place] Glucose [Mass/Vol] 116 mg/dL High 70 - 100 mg/dL [place] Interpretation and review of laboratory results Abnormal [place] Potassium [Moles/Vol] 3.1 mmol/L Low 3.5 - 5.1 mmol/L [place] Protein [Mass/Vol] 7.6 g/dL 6.3 - 8.2 g/dL [place] Sodium [Moles/Vol] 140 mmol/L 135 - 145 mmol/L [place] Urea nitrogen [Mass/Vol] 22 mg/dL High 7 - 20 mg/dL [place] Lactic Acid, Plasmaon 2019 Lactate [Moles/Vol] 1.4 mmol/L 0.7 - 2 mmol/L [place] Otheron 03-06-2020 Test Performed by [facility], [address] Test Performed by [facility], [address] , [address] Troponinon 03-06-2020 Troponin I.cardiac [Mass/Vol] ng/mL 0 - 0.034 ng/mL [place] Comment on above: . Test Performed by [facility], [address], [place], [place] [address] [place] [address] Troponin I.cardiac [Mass/Vol] ng/mL 0 - 0.034 ng/mL [place] Comment on above: . Urinalysison 03-06-2020 Appearance (U) Clear Clear NA [place] Comment on above: . Bacteria, UA Few (1-5) Abnormal Negative /[HPF] [place] Comment on above: . Bilirubin Urine Negative Negative mg/dL [place] Comment on above: . Color (U) LIGHT YELLOW Lt. Yellow NA [place] Comment on above: . Glucose, Ur Normal Normal (<70) mg/dL [place] Comment on above: . Interpretation and review of laboratory results Abnormal [place] Ketones Ql (U) Negative Negative mg/dL [place] Comment on above: . LEUKOCYTES, UA 250 Abnormal Negative Jennifer/uL [place] Comment on above: . Nitrite, Urine Negative Negative NA [place] Comment on above: . Non-Squamous Epithelial 0-2 Abnormal Negative /[HPF] [place] Comment on above: . Occult Blood,Urine 0.1 mg/dL Abnormal Negative [place] Comment on above: . pH (U) 5.5 [pH] [place] Comment on above: . Protein (U) [Mass/Vol] Negative Negat alli mg/dL [place] Comment on above: . RBC (U) [#/Vol] Negative 0 - 2 /[HPF] [place] Comment on above: . Specific Jerome, Urine 1.017 [place] Comment on above: . Squam Epithel, UA 0-2 3 - 5 /[HPF] [place] Comment on above: . Urobilinogen, Urine Normal Normal (0-1) mg/dL [place] Comment on above: . Volume 8-12 ml [place] Comment on above: . WBC, UA 3-5 0 - 5 /[HPF] [place] Comment on above: . Test Performed by [facility], [address] , [address] XR ABDOMEN (KUB) (SINGLE AP VIEW)on 03-06-2020 Patient Name: CHAY TEAGUE ---Diagnostic Radiology--- Exam Date/Time 03/06/2020 21:54:29 EDT Exam CR Abdomen AP Ordering Physician MD LEBRON PRAMOD Accession Number [id number] CPT4 Codes 72810 () Reason For Exam abdominal pain Report EXAM: CR Abdomen AP INDICATION: Abdominal pain; left upper quadrant pain; history of gastric fundoplication VIEWS: AP COMPARISON: 10/21/2019 pelvis TIME: 21:27 FINDINGS AND IMPRESSION: The bowel gas pattern is nonspecific with moderate fecal retention. The hemidiaphragms are excluded from [id number]. Report Dictated on --- Final --- Dictating Physician: MD MCDERMOTT JENNIFER R Signed Date and Time: 03/06/2020 9:59 pm Signed by: MD MCDERMOTT JENNIFER R Transcribed Date and Time: 03/06/2020 10:01 [employer] [place], [facility] Results From [facility] - 03/06/2020 10:01 PM EDT Patient Name: CHAY TEAGUE ---Diagnostic Radiology--- Exam Date/Time 03/06/2020 21:54:29 EDT Exam CR Abdomen AP Ordering Physician MD LEBRON PRAMOD Accession Number [id number] CPT4 Codes 12678 () Reason For Exam abdominal pain Report EXAM: CR Abdomen AP INDICATION: Abdominal pain; left upper quadrant pain; history of gastric fundoplication VIEWS: AP COMPARISON: 10/21/2019 pelvis TIME: 21:27 FINDINGS AND IMPRESSION: The bowel gas pattern is nonspecific with moderate fecal retention. The hemidiaphragms are excluded from [id number]. Report Dictated on --- Final --- Dictating Physician: MD MCDERMOTT JENNIFER R Signed Date and Time: 03/06/2020 9:59 pm Signed by: MD MCEDRMOTT JENNIFER R Transcribed Date and Time: 03/06/2020 10:01 [employer] XR CHEST PORTABLEon 03-06-20 Jt, [facility] Incoming Radiology Results From [facility] - 03/06/2020 1:18 PM EDT Patient Name: CHAY TEAGUE ---Diagnostic Radiology--- Exam Date/Time 03/06/2020 12:50:01 EDT Exam CR Chest Portable Ordering Physician MD REESE GREGORY M Accession Number [id number] CPT4 Codes 85073 () Reason For Exam Shortness of breath [...] JASON Transcribed Date and Time: 03/06/2020 1:18 [place] Patient Name: CHAY TEAGUE ---Diagnostic Radiology--- Exam Date/Time 03/06/2020 12:50:01 EDT Exam CR Chest Portable Ordering Physician MD REESE GREGORY M Accession Number [id number] CPT4 Codes 00024 () Reason For Exam Shortness of breath [...] JASON Transcribed Date and Time: 03/06/2020 1:18 [place] CBC Auto DifferentialOrdered By: Cynthia Uribe on 08-31-2019 Absolute Baso # 0.1 10*3/uL 0 - 0.2 10*3/uL [facility] Work Phone: [phone] Absolute Neut # 5.3 10*3/uL 1.8 - 7 10*3/uL [facility] Work Phone: 1() 222 Basophils/100 WBC (Bld) 0.7 % 0 - 2 % [facility] Work Phone: 1() 222 Eosinophils (Bld) [#/Vol] 0.3 10*3/uL 0 - 0.5 10*3/uL [facility] Work Phone: 1() 222 Eosinophils/100 WBC (Bld) 3.0 % 1 - 6 % [facility] Work Phone: 1) 222 Erythrocyte distribution width (RBC) [Ratio] 14.7 % High 11.5 - 14.5 % [employer] Work Phone: 1() 222 Granulocytes/100 WBC (Bld) 59.4 % 40 - 80 % [employer] Work Phone: 1) 222 Hematocrit (Bld) [Volume fraction] 42.8 % 35 - 47 % [employer] Work Phone: 1) 222 Hemoglobin (Bld) [Mass/Vol] 14.4 g/dL 11.7 - 16 g/dL [employer] Work Phone: [phone]) 222 Interpretation and review of laboratory results Abnormal [employer] Work Phone: 1) 222 Lymphocytes (Bld) [#/Vol] 2.6 10*3/uL 1 - 4.3 10*3/uL [facility] Work Phone: 1) 222 Lymphocytes/100 WBC (Bld) 28.6 % 20 - 40 % [facility] Work Phone: 1) 222 MCH (RBC) [Entitic mass] 30.7 pg 26 - 34 pg [facility] Work Phone: 1() 222 MCHC 33.5 % 32 - 36 % [facility] Work Phone: [phone] MCV (RBC) [Entitic vol] 91.6 fL 79 - 98 fL [employer] Work Phone: 1) 222 Monocytes (Bld) [#/Vol] 0.7 10*3/uL 0 - 0.8 10*3/uL [facility] Work Phone: [phone] Monocytes/100 WBC (Bld) 8.3 % 2 - 10 % [facility] Work Phone: [phone] Platelet mean volume (Bld) [Entitic vol] 9.0 fL 7.4 - 10.4 fL [facility] Work Phone: ) 222 Platelets (Bld) [#/Vol] 273 10*3/uL 140 - 440 10*3/uL [facility] Work Phone: ) 222 RBC (Bld) [#/Vol] 4.67 10*6/uL 3.8 - 5.2 10*6/uL [facility] Work Phone: ) 222 WBC (Bld) [#/Vol] 9.0 10*3/uL 3.6 - 10.7 10*3/uL [facility] Work Phone: 222 Test Performed by [facility], [address] [place], [place] [address] , [place], [place] [address] Work Phone: Comprehensive Metabolic Pane lOrdered By: Cynthia Uribe on 08-31-2019 Albumin [Mass/Vol] 4.0 g/dL 3.5 - 5 g/dL [facility] Work Phone: 222 ALP [Catalytic activity/Vol] 134 U/L High 38 - 126 U/L [facility] Work Phone: 222 ALT [Catalytic activity/Vol] 34 U/L 13 - 69 U/L [facility] Work Phone: 222 Anion gap [Moles/Vol] 12 mmol/L [facility] Work Phone: 222 AST [Catalytic activity/Vol] 31 U/L 15 - 46 U/L [facility] Work Phone: 222 Bilirubin [Mass/Vol] 0.3 mg/dL 0.2 - 1 .3 mg/dL [facility] Work Phone: [phone] Calcium [Mass/Vol] 9.3 mg/dL 8.4 - 10. 4 mg/dL [facility] Work Phone: 222 Chloride [Moles/Vol] 102 mmol/L 98 - 10 7 mmol/L [facility] Work Phone: 222 CO2 [Moles/Vol] 29 mmol/L 22 - 30 mmol/L [facility] Work Phone: [phone] Creatinine [Mass/Vol] 1.17 mg/dL 0.52 - 1.25 mg/dL [facility] Work Phone: 1 EGFR IF NonAfrican Belarusian 44.9 mL/min >60 [facility] Work Phone: Comment [...] of laboratory results Abnormal [facility] Work Phone: 222 Potassium [Moles/Vol] 3.7 mmol/L 3.5 - 5.1 mmol/L [facility] Work Phone: Protein [Mass/Vol] 7.4 g/dL 6.3 - 8.2 g/dL [facility] Work Phone: 222 Sodium [Moles/Vol] 142 mmol/L 135 - 145 mmol/L [facility] Work Phone: 222 Urea nitrogen [Mass/Vol] 29 mg/dL High 7 - 20 mg/dL [facility] Work Phone: 1 Test Performed by [employer] [facility], [address] , [place] [address] [facility] Work Phone: TSH without ReflexOrdered By : Cynthia Uribe on 08-31-2019 TSH 2.584 u[IU]/mL 0.465 - 4.68 u[IU]/mL [facility] Work Phone: 1 Test Performed by [facility], [address] [place] [address] [facility] Work Phone: Vitamin D 25 HydroxyOrdered By: Cynthia Uribe on 08-31-2019 Interpretation and review of laboratory results Abnormal [facility] Work Phone: Vit D, 25-Hydroxy 26 ng/mL Low 30 - 100 ng/mL [employer] Work Phone: Comment on above: Therapy is based on measurement of Total 25-OHD with the following classification levels: Less than 20 ng/mL: Indicative of Vit D deficiency 20-30 ng/mL: Suggests Vit D insufficiency Optimal: Greater than or equal to 30 ng/mL Test performed by [employer], measuring Total Vitamin D, not individual fractions. Test Performed by [facility], [address] [place], [place] [address] [employer] Work Phone: TSH without Reflexon 019 TSH Qn 3.036 u[IU]/mL 0.465 - 4.68 u[IU]/mL [facility] [place] Test Performed by [facility], [address] [place], [place] [address] [facility] [place] MG Breast Tomosynthesis Diag nostic Righton 03-09-2019 MG Breast Tomosynthesis Diagnostic Right Patient Name: CHAY TEAGUE Mammography Exam Date/Time 03/09/2019 07:49:43 EDT Exam MG Breast Tomosynthesis Uni Ordering Physician MD URIBE DIANA Accession Number [id number] CPT4 Codes 22812 (MG Breast Tomosynthesis Right), 08753 (MG MAMMO 2D DIAGNOSTIC) Reason For Exam [...] 17, 2019, bilateral screening mammogram performed at [facility]. February 17, 2019, bilateral MG breast tomosynthesis bl scr performed at [facility]. August 18, 2017, bilateral MG breast tomosynthesis bl scr performed at [facility]. November 22, 2010, bilateral mammogram. TISSUE [...] images: BB's = Nipples; skin lesions Open native = Palpable Line = Scar US BREAST LIMITED RIGHT: MARCH 09, 2019 - Standard views. 2D digital mammography and tomosynthesis imaging were performed and reviewed with CAD. ASSESSMENT: Category 3 Probably benign (Overall) RECOMMENDATION: Ultrasound of the right breast in 6 months. . Report Dictated on Final Signed Date and Time: 03/09/2019 8:57 am Signed by: MD TAN KERISTEN L Normal [facility] US Breast Limited Righton US Breast Limited Right Patient Name: CHAY TEAGUE Ultrasound Exam Date/Time 03/09/2019 08:41:27 EDT Exam US Breast Limited Right Ordering Physician MD URIBE DIANA Accession Number [id number] CPT4 Codes 49742 () Reason For Exam Other abnormal and [...] 17, 2019, bilateral screening mammogram performed at [facility]. February 17, 2019, bilateral MG breast tomosynthesis bl scr performed at [facility]. August 18, 2017, bilateral MG breast tomosynthesis bl scr performed at [facility]. November 22, 2010, bilateral mammogram. TISSUE [...] images: BB's = Nipples; skin lesions Open native = Palpable Line = Scar US BREAST LIMITED RIGHT: MARCH 09, 2019 - Standard views. 2D digital mammography and tomosynthesis imaging were performed and reviewed with CAD. ASSESSMENT: Category 3 Probably benign (Overall) RECOMMENDATION: Ultrasound of the right breast in 6 months. . Report Dictated on Final Signed Date and Time: 03/09/2019 8:57 am Signed by: MD DOMINICK, GONZALO Chung Normal [facility] Basic Metabolic Panelon - Anion gap molar conc 7 Normal [facility] Comment on above: Performed By: #### H VILLA BMP3 #### [address] [address] Calcium mass conc 8.8 mg/dL Normal 8.4-10.4 [facility] Comment on above: Performed By: #### H VILLA BMP3 #### [address] [address] CO2 molar conc 23 mmol/L Normal 22-30 [facility] Comment on above: Performed By: #### H VILLA, BMP3 #### [address] [address] Creatinine mass conc 0.85 mg/dL Normal 0.52-1.25 [facility] Comment on above: Performed By: #### H DIALLOF, BMP3 #### [place] [address] [place] [address] GFR/1.73 sq M predicted among blacks MDRD vol rate/area (S/P/Bld) mL/min/{1.73_m2} Normal >60 [facility] Comment on above: Performed By: #### H DIALLOF, BMP3 #### [address] [address] GFR/1.73 sq M predicted among non-blacks MDRD vol rate/area (S/P/Bld) mL/min/{1.73_m2} Normal >60 [facility] Comment on above: Result Comment: Sour ce- MDRD equation with creatinine calibration to IDMS(NKDEP) eGFR not recommended for drug dose adjustment Performed By: #### H DIALLOF, BMP3 #### [facility] [address] [place] [address] Glucose mass conc 100 mg/dL Normal 70-100 [facility] Comment on above: Performed By: #### H DIALLOF, BMP3 #### [facility] [address] [place] [address] Urea nitrogen mass conc 14 mg/dL Normal 7-20 [facility] Comment on above: Performed By: #### H DIALLOF, BMP3 #### [facility] [address] [place] [address] Chloride molar conc 109 mmol/L High 98-107 [facility] Comment on above: Performed By: #### H VILLA, BMP3 #### [facility] [address] [place] [address] Potassium molar conc 3.7 mmol/L Normal 3.5-5.1 [facility] Comment on above: Performed By: #### H VILLA, BMP3 #### [facility] [address] [place] [address] Sodium molar conc 140 mmol/L Normal 135-145 [facility] Comment on above: Result Comment: NOTE : New Sodium Reference Range effective 2018 @ 10:00 Performed By: #### H VILLA, BMP3 #### [facility] [address] [place] [address] CR Chest Portableon 09-08-20 18 CR Chest Portable Patient Name: CHAY TEAGUE Diagnostic Radiology Exam Date/Time 09/08/2018 16:21:12 EST Exam CR Chest Portable Ordering Physician MD ANTONI, TRA Knutson Accession Number [id number] CPT4 Codes 61043 () Reason For Exam fall Report PORTABLE [...] Transcribed Date and Time: 09/08/2018 4:57 Normal [facility] CR Wrist Complete 3 Views Le fton 09-08-2018 CR Wrist Complete 3 Views Left Patient Name: CHAY TEAGUE Diagnostic Radiology Exam Date/Time 09/08/2018 16:21:12 EST Exam CR Wrist Complete 3 Views Left Ordering Physician MD ANTONI, TRA Knutson Accession Number [id number] CPT4 Codes 67695 () Reason For Exam fall, open fracture [...] Transcribed Date and Time: 09/08/2018 4:56 Normal [facility] CT Head or Brain w/o Contras ton 09-08-2018 CT Head or Brain w/o Contrast Patient Name: CHAY TEAGUE CT Exam Date/Time 09/08/2018 16:04:[address] Head or Brain w/o Contrast Ordering Physician MD CORRALES DAVID C. Accession Number [id number] CPT4 Codes 77087 () Reason For Exam fall, on anticoagulation [...] Transcribed Date and Time: 09/08/2018 4:40 Normal [facility] CT Spine Cervical w/o Contra stoyael 09-08-2018 CT Spine Cervical w/o Contrast Patient Name: CHAY TEAGUE CT Exam Date/Time 09/08/2018 16:05:[address] Spine Cervical w/o Contrast Ordering Physician MD CORRALES DAVID C. Accession Number [id number] CPT4 Codes 65271 () Reason For Exam C-SPINE TRAUMA, NEXUS/CCR [...] Transcribed Date and Time: 09/08/2018 4:43 Normal [facility] ED Provider Noteon 8 Protein mass [...] capsule by mouth daily VITAMIN D (ERGOCALCIFEROL) 31306 UNITS CAPSULE Take 1 capsule by mouth [...] arranged. Patient's daughter 100 [facility] in [place]. We will give her referral to Dr. [...] Provider Tra Corrales MD 09/08/18 1859 Normal [facility] Hemogram w/ Autodiffon 09-08 Abs Baso Cnt 0.1 10*3/uL Normal 0.0-0.2 [facility] Comment on above: Performed By: #### H GUZMAN DRIVER3 #### [address] [address] Abs Neutrophile Cnt 5.8 10*3/uL Normal 1.8-7.0 [facility] Comment on above: Performed By: #### Tylor DRIVER BMP3 #### [address] [address] Basophils/100 WBC (Bld) 0.7 % Normal 0.0-2.0 [facility] Comment on above: Performed By: #### H VILLA BMP3 #### [address] [address] Eosinophils #/vol (Bld) 0.2 10*3/uL Normal 0.0-0.5 [facility] Comment on above: Performed By: #### H VILLA BMP3 #### [address] [address] Eosinophils/100 WBC (Bld) 2.3 % Normal 1.0-6.0 [facility] Comment on above: Performed By: #### Tylor DRIVER BMP3 #### [address] [address] Erythrocyte distribution width Ratio (RBC) 14.9 % High 11.5-14.5 [facility] Comment on above: Performed By: #### Tylor DRIVER BMP3 #### [address] Granulocytes/100 WBC (Bld) 69.6 % Normal 40.0-80.0 [facility] Comment on above: Performed By: #### H VILLA BMP3 #### [address] Hematocrit Volume Fraction (Bld) 41.2 % Normal 35.0-47.0 [facility] Comment on above: Performed By: #### H VILLA BMP3 #### [address] Hemoglobin mass conc (Bld) 13.5 g/dL Normal 11.7-16.0 [facility] Comment on above: Performed By: #### H VILLA BMP3 #### [address] Lymphocytes #/vol (Bld) 1.7 10*3/uL Normal 1.0-4.3 [facility] Comment on above: Performed By: #### H VILLA BMP3 #### [address] Lymphocytes/100 WBC (Bld) 20.5 % Normal 20.0-40.0 [facility] Comment on above: Performed By: #### H VILLA BMP3 #### [address] MCH Entitic mass (RBC) 30.8 pg Normal 26.0-34.0 [facility] Comment on above: Performed By: #### H VILLA BMP3 #### [address] MCHC mass conc (RBC) 32.9 % Normal 32.0-36.0 [facility] Comment on above: Performed By: #### H VILLA BMP3 #### [address] MCV Entitic volume (RBC) 93.6 fL Normal 79.0-98.0 [facility] Comment on above: Performed By: #### H VILLA BMP3 #### [address] [place] [address] Monocytes #/vol (Bld) 0.6 10*3/uL Normal 0.0-0.8 [facility] Comment on above: Performed By: #### H EMDF, BMP3 #### [facility] [address] [place] [address] Monocytes/100 WBC (Bld) 6.9 % Normal 2.0-10.0 [facility] Comment on above: Performed By: #### H EMDF, BMP3 #### [facility] [address] [place] [address] Platelet mean volume Entitic volume (Bld) 9.0 fL Normal 7.4-10.4 [facility] Comment on above: Performed By: #### H EMDF, BMP3 #### [place] [address] [place] [address] Platelets #/vol (Bld) 212 10*3/uL Normal 140-440 [facility] Comment on above: Performed By: #### H EMDF, BMP3 #### [facility] [address] [place] [address] RBC #/vol (Bld) 4.40 10*6/uL Normal 3.80-5.20 [facility] Comment on above: Performed By: #### H EMDF, BMP3 #### [facility] [address] [place] [address] WBC #/vol (Bld) 8.4 10*3/uL Normal 3.6-10.7 [facility] Comment on above: Performed By: #### H EMDF, BMP3 #### [facility] [address] [place] [address] CNCOon 09-02-2017 CNCO Letter Uri damon MD[address] [place] [address]Hupen: [phone]: [phone]: 09/02/2017Provider: Hayley Geronimo,We have received a referral [...] you to please call our office at [phone], option 5 and we willassist you in scheduling your exam.Sincerely,Clifford Crane MD Normal [facility] Vital Signs Date Time Vital Sign [...] 18:04-0500 Pulse (Heart Rate) 102 /min Jame Kotsasmbash [facility] Work Phone: 11-02-2020 18:04-0500 Pulse Oximetry 99 % Jame Gombash [facility] Work Phone: 11-02-2020 15:23-0500 Body Temperature [...] 13:36-0500 Pulse (Heart Rate) 103 /min Jame Gombash [facility] Work Phone: 11-02-2020 13:36-0500 Pulse Oximetry 100 % Jame WALTON Work Phone: 11-02-2020 13:36-0500 Respiratory Rate 22 /min Jame WALTON Work Phone: 03-09-2020 08:35-0400 Pulse Oximetry 94 % Emily Reese [facility] , [place] 03-09-2020 08:26-0400 Body Temperature 97.9 [degF] [facility] [place] 03-09-2020 08:26-0400 BP Diastolic 90 mm[Hg] Emily Reese [place], [place] 03-09-2020 08:26-0400 BP Systolic 146 mm[Hg] Emily Reese [place] 03-09-2020 08:26-0400 Pulse (Heart Rate) 90 /min Emily Reese [place] 03-09-2020 08:26-0400 Respiratory Rate 18 /min Emily Reese [place], [place] 03-06-2020 17:21-0400 BMI (Body Mass Index) 35.43 kg/m2 Emily Reese [place] 03-06-2020 17:21-0400 Body weight 90.72 kg Emily Reese [place], [place] Comment on above: per 08/2019 office visit 03-06-2020 17:21-0400 Height 160 cm Emily [place] Comment on above: per 08/2019 office visit 01-22-2020 14:28-0400 Body Temperature 97.4 [degF] Scott Bernsteinrio [facility] Work Phone: 01-22-2020 14:28-0400 BP Diastolic 78 mm[Hg] Scott Bernsteinrio [facility] Work Phone: 01-22-2020 14:28-0400 BP Systolic 126 mm[Hg] Scott Bernsteinrio [facility] Work Phone: 01-22-2020 14:28-0400 Pulse (Heart Rate) 86 /min Scott Jimenez [facility] Work Phone: 01-22-2020 14:28-0400 Pulse Oximetry 95 % Scott Jimenez [facility] Work Phone: 01-22-2020 14:28-0400 Respiratory Rate 32 /min Scott Jimenez [facility] Work Phone: Encounters Encounter Date Encounter Type Care Provider Facility Start: 05-26-2025 ambulatory Saurabh MANJARREZ Facili ty:[facility] Start: 05-09-2025 ambulatory Saurabh MANJARREZ Facili ty:[facility] Start: 04-08-2025 ambulatory Saurabh MANJARREZ Facili ty:[facility] Start: 03-03-2025 ambulatory Saurabh MANJARREZ Facili ty:[facility] Start: 02-16-2025 ambulatory Saurabh MANJARREZ Facili ty:[facility] Start: 12-09-2024 End: 12-09-2024 ambulatory Saurabh Fernandez MD [facility] Work Phone: Start: 12-09-2024 End: 12-09-2024 Departed Referred Saurabh Fernandez [facility] Start: 12-09-2024 Registered Referred Saurabh Fernandez MD [facility] Start: 12-09-2024 End: 12-09-2024 ambulatory Saurabh MANJARREZ Facility:[facility] Start: 11-22-2024 End: 11-22-2024 ambulatory Saurabh Fernandez MD [facility] Work Phone: Start: 11-22-2024 End: 11-22-2024 Departed Referred Saurabh Fernandez MD -[facility] Start: 11-22-2024 Registered Referred Saurabh Fernandez MD [facility] Start: 11-22-2024 End: 11-22-2024 ambulatory Saurabh MANJARREZ Facility:[facility] Start: 11-17-2024 End: 11-17-2024 ambulatory Saurabh Fernandez MD [facility] Work Phone: Start: 11-17-2024 End: 11-17-2024 Departed Referred Saurabh Fernandez MD [facility] Start: 11-17-2024 End: 11-17-2024 ambulatory Saurabh MANJARREZ Facility:[facility] Start: 11-10-2024 ambulatory Saurabh MANJARREZ Facili ty:[facility] Start: 11-10-2024 Registered Referred Saurabh Fernandez MD [facility] Start: 09-16-2024 ambulatory Saurabh MANJARREZ Facili ty:[facility] Start: 09-16-2024 Registered Referred Saurabh Fernandez [facility] Start: 08-30-2024 End: 08-30-2024 [facility] Start: 08-30-2024 End: 08-30-2024 ambulatory Saurabh MANJARREZ Facility:[facility] Start: 08-09-2024 End: 08-09-2024 ambulatory Saurabh MANJARREZ Facility:[facility] Start: 06-25-2024 End: 06-25-2024 ambulatory Saurabh MANJARREZ Facility:[facility] Start: 06-24-2024 End: 06-24-2024 ambulatory Saurabh MANJARREZ Facility:[facility] Start: 10-16-2023 End: 10-16-2023 ambulatory [facility] Work Phone: Start: 10-16-2023 End: 10-16-2023 Departed Referred [facility] Start: 09-29-2023 End: 09-29-2023 ambulatory [facility] Work Phone: Start: 09-29-2023 End: 09-29-2023 Departed Referred [facility] Start: 09-01-2023 End: 09-01-2023 ambulatory [facility] Work Phone: Start: 09-01-2023 End: 09-01-2023 Departed Referred [facility] Start: 07-24-2023 End: 07-24-2023 ambulatory [facility] Work Phone: Start: 07-24-2023 End: 07-24-2023 Departed Referred [facility] Start: 06-30-2023 End: 06-30-2023 ambulatory [facility] Work Phone: Start: 06-30-2023 End: 06-30-2023 Departed Referred [facility] Start: 05-01-2023 End: 05-01-2023 ambulatory [facility] Work Phone: Start: 05-01-2023 End: 05-01-2023 Departed Referred [facility] Start: 04-07-2023 End: 04-07-2023 ambulatory [facility] Work Phone: Start: 04-07-2023 End: 04-07-2023 Departed Referred [facility] Start: 02-06-2023 End: 02-06-2023 Departed Referred [facility] Start: 01-13-2023 End: 01-13-2023 ambulatory [facility] Work Phone: Start: 01-13-2023 End: 01-13-2023 Departed Referred [facility] Start: 11-14-2022 End: 11-14-2022 ambulatory [facility] Work Phone: Start: 11-14-2022 End: 11-14-2022 Departed Referred [facility] Start: 11-14-2022 Registered Referred [facility] Start: 10-21-2022 End: 10-21-2022 ambulatory [facility] Work Phone: Start: 10-21-2022 End: 10-21-2022 Departed Referred [facility] Start: 08-23-2022 End: 08-23-2022 ambulatory [facility] Work Phone: Start: 08-23-2022 End: 08-23-2022 Departed Referred [facility] Start: 08-23-2022 Registered Referred [facility] Start: 08-22-2022 End: 08-22-2022 ambulatory [facility] Work Phone: Start: 08-22-2022 End: 08-22-2022 Departed Referred [facility] Start: 08-22-2022 Registered Referred [facility] Start: 07-29-2022 End: 07-29-2022 ambulatory [facility] Work Phone: Start: 07-29-2022 End: 07-29-2022 Departed Referred [facility] Start: 07-29-2022 Registered Referred [facility] Start: 07-24-2022 End: 07-24-2022 ambulatory [facility] Work Phone: Start: 07-24-2022 End: 07-24-2022 Departed Referred [facility] Start: 06-06-2022 End: 06-24-2022 Evaluation and management of inpatient JOHN MCDONALD Facility:[facility] Start: 06-05-2022 End: 06-06-2022 Emergency department patient visit CYNTHIA URIBE Facility:[facility] Start: 06-05-2022 [facility] Mundo Bailey [employer] SUPERVISOR Work Phone: [facility] Start: 06-05-2022 ambulatory Mundo ocnley [employer] SUPERVISOR Work Phone: Behavioral Health Intake Comment on above: Psychiatric Problem Start: 08-30-2021 Chart Update Referring Prov ider [facility] Work Phone: Start: 08-29-2021 Office outpatient vi sit 15 minutes Referring Provider Unknown [facility] Work Phone: Start: 05-10-2021 End: 05-10-2021 Subsequent hospital visit by physician Cynthia Uribe MD Work Phone: [facility] Comment on above: Vitamin D deficiency ; Recurrent depression (HCC); Essential hypertension; Other specified hypothyroidism; Mild intermittent asthma without complication Start: 11-02-2020 End: 11-02-2020 Emergency department patient visit Jame Best Work Phone: [facility] [place] [facility] Comment on above: Altered mental statu [...] Pelvi s W contrast IV Jame Farfan [employer] Work Phone: Start: 11-02-2020 Ct angiography chest w/contrast/noncontrast Jame Farfan [employer] Work Phone: Start: 11-02-2020 Ct head/brain w/o co ntrast material Jame Farfan [employer] Work Phone: Start: 11-02-2020 Assay of lactate Jame Farfan [employer] Work Phone: Start: 11-02-2020 Assay of troponin quantitative [employer]ame [employer] Work Phone: Start: 11-02-2020 Blood count complete auto&auto difrntl wbc [employer] Work Phone: Start: 11-02-2020 Comprehensive metabo lic panel [employer] Work Phone: Start: 11-02-2020 COVID-19, RAPID Jame Farfan [employer] [facility] Work Phone: Start: 11-02-2020 Natriuretic peptide Stone Farfan [employer] Work Phone: Start: 11-02-2020 Prothrombin time Jame [employer] Work Phone: Start: 11-02-2020 Ecg routine ecg w/le ast 12 lds w/i&r Jame Farfan [employer] Work Phone: Start: 03-07-2020 Mri brain brain [...] Work Phone: Start: 03-07-2020 Lipid panel Delia Scott Work Phone: Start: 03-06-2020 Radiologic exam abdo men 1 view Cain Bernardino Work Phone: Start: 03-06-2020 Assay of ammonia Merrick foote Scott Work Phone: Start: 03-06-2020 Assay of troponin quantitative Delia Chavez Work Phone: Start: 03-06-2020 Speech and language therapy regime Delia Scott Work Phone: Start: 03-06-2020 ADD ON LAB [...] Start: 03-06-2020 Assay of troponin quantitative Emily Reees Work Phone: Start: 03-06-2020 Blood count complete [...] 05-18-2019 Assay of thyroid stimulating hormone tsh Cynthai Uribe Work Phone: Plan of Treatment Date Care Activity Detail Author Start: 06-05-2025 DIABETES SCREEN DIABETES SCREEN [facility] Start: 05-23-2022 Influenza vaccination INFLUENZA (#1) [facility] Start: 05-10-2022 Creatinine measurement Creatinine mo nitoring [facility] Work Phone: Start: 05-10-2022 Potassium monitoring Potassium monit oring [facility] Work Phone: Start: 11-02-2021 Creatinine measurement Creatinine mo nitoring [facility] Work Phone: Start: 11-02-2021 Potassium monitoring Potassium monit oring [facility] Work Phone: Start: 09-22-2021 ADVANCE DIRECTIVE DISCUSSION ADVANCE DIRECTIVE DISCUSSION [facility] Start: 09-10-2021 End: 09-10-2021 Telemedicine consultation with patient 09/10/2021 Telemedicine Family Medicine Cynthia Uribe MD [address] [place] [id number] [facility] Start: 05-23-2021 Influenza vaccination Flu vaccine (# 1) [facility] Work Phone: Start: 03-07-2021 Creatinine measurement Creatinine mo nitoring [facility] [place] Start: 03-07-2021 Potassium monitoring [place] Start: 08-31-2020 Creatinine monitoring Creatinine mon itoring [employer] Work Phone: Start: 08-31-2020 Potassium monitoring Potassium monit oring [employer] Work Phone: Start: 05-23-2020 Influenza vaccination Flu vacc ine (Season Ended) [place], [place] Start: 11-09-2019 Creatinine monitoring Creatinine mon [place] Start: 11-09-2019 Potassium monitoring Potassium monit oring [place] Start: 05-23-2019 Influenza vaccination Flu vaccine (# 1) [place] Start: 03-09-2019 Annual Wellness Visi t (AWV) Annual Wellness Visit (AWV) [facility] Work Phone: Start: 2008 BONE DENSITY BONE DENSITY [facility] Start: 2008 DEXA (modify frequen cy per FRAX score) DEXA (modify frequency per FRAX score) [place] Start: 2008 PNEUMOCOCCAL: 65+ (1 - PCV) PNEUMOCOCCAL: 65+ (1 - PCV) [facility] Start: 2006 Annual Wellness Visi t (AWV) Annual Wellness Visit (AWV) [place] Start: 1998 Screening for osteoporosis DEXA (modify frequency per FRAX score) [place] Start: 1993 Shingles Vaccine (1 of 2) Shingles Vaccine (1 of 2) [place] Start: 1993 SHINGRIX VACCINE (1 of 2) SHINGRIX VACCINE (1 of 2) [facility] Start: 1962 DTaP/Tdap/Td vaccine (1 - Tdap) DTaP/Tdap/Td vaccine (1 - Tdap) [place] Start: 1962 Urine microalbumin profile DTAP,TDAP,TD (1 - Tdap) [facility] Start: 1959 COVID-19 Vaccine (1 of [...] for 1 Occurrences starting 11/02/2020 until 11/02/2020 [facility] Work Phone: Comment on above: One Time for 1 Occur rences starting 11/02/2020 until 11/02/2020 End: 11-02-2020 CT Abdomen and Pelvis W contrast IV CT Abdomen Pelvis W Contrast Imaging STAT Once for 1 Occurrences starting 11/02/2020 until 11/02/2020 [facility] Work Phone: Comment on above: Once for 1 Occurrenc es starting 11/02/2020 until 11/02/2020 End: 11-02-2020 CTA Chest W WO (PE study) CTA Chest W WO (PE study) Imaging STAT Once for 1 Occurrences starting 11/02/2020 until 11/02/2020 [facility] Work Phone: Comment on above: Once for 1 Occurrenc es starting 11/02/2020 until 11/02/2020 Culture, Blood [facility] [place] [place] End: 11-02-2020 Culture, Blood 1 Culture, Blood 1 Microbiology STAT One Time for 1 Occurrences starting 11/02/2020 until 11/02/2020 [facility] Work Phone: Comment on above: One Time for 1 Occur rences starting 11/02/2020 until 11/02/2020 Culture, Blood 2 [facility] [place] [place] End: 11-02-2020 Culture, Blood 2 Culture, Blood 2 Microbiology STAT One Time for 1 Occurrences starting 11/02/2020 until 11/02/2020 [facility] Work Phone: Comment on above: One Time for 1 Occur rences starting 11/02/2020 until 11/02/2020 EKG 12 Lead - Chest Pain EKG 12 Lead - Chest Pain ECG STAT 11/02/2020 1:34 PM EST [facility] Work Phone: End: 11-02-2020 Hemogram (CBC) w/Auto Diff Hemogram (CBC) w/Auto Diff Lab STAT One Time for 1 Occurrences starting 11/02/2020 until 11/02/2020 [facility] Work Phone: Comment on above: One Time for 1 Occur rences starting 11/02/2020 until 11/02/2020 Initiate Oxygen Ther apy Protocol Initiate Oxygen Therapy Protocol Respiratory Care Routine Daily until discontinued starting 03/06/2020 [facility] [place], [place] Comment on above: Daily until disconti [...] 06-16-2018 influenza, high dose seasonal, preservative-free Cynthia [facility], [place] 08-07-2017 influenza, high dose seasonal, preservative-free Cynthia [facility] 03-26-2017 pneumococcal polysaccharide vaccine, 23 [facility], [place] 11-11-2016 pneumococcal conjuga te vaccine, 13 [facility] 10-16-2016 influenza, high dose seasonal, preservative-free Cynthia Uribe MD Work Phone: [facility] Work Phone: Payers Date Payer Category Payer Self-pay 2021 Medicaid [employer] [employer] [facility] MEDICAID [id number] 2021-Present [phone] [address] [place] [address] Medicaid [id number] 2021 Medicare [employer] [facility] MEDICARE [id number] 2021-Present [phone] [address] [place] [address] Medicare [id number] 2021 Medicare [id number] 2021 Unknown [id number] 2017 Unknown [employer] MEDI CARE SUPP xxxxxxxxxxxx 2017-Present [address] [place] [address] xxxxxxxxxxxx [id number] 2017 Unknown [employer] SUPP [id number] 2017-Present [address] [place] [address] [id number] 2014 Medicare MEDICARE MEDICAR E PART A AND B xxxxxxxxxxx 2014-Present [phone] [place] [address] xxxxxxxxxxx [id number] 2014 Medicare [id number] Unknown Unknown [id number] Unknown [id number] Unknown [id number] Unknown [id number] Unknown [id number] Unknown [id number] Unknown [id number] Unknown [id number] Unknown [id number] Unknown [id number] Unknown [id number] Unknown [id number] Unknown [id number] Unknown [id number] Unknown [id number] Social History Date Type Detail Facility Start: 08-31-2019 End: 03-07-2020 Tobacco smoking status WIIS Former smoker [place] End: 09-22-1984 History of tobacco use Current smoker [place] End: 09-22-1984 History of tobacco use Cigarette Smoker [place] Start: 08-31-2019 End: 03-07-2020 Alcohol intake Current non-drinker of alcohol (finding) [facility] Work Phone: Start: 1945 Sex Assigned At Not on file [place] Start: 11-02-2020 End: 05-10-2021 Tobacco use and exposure Never used [facility] Work Phone: Start: 05-26-2022 End: 06-05-2022 Exposure to SARS-CoV-2 (event) Not sure [facility] Work Phone: Start: 11-09-2018 Alcohol intake No [place] Former smoker Former smoker [facility] Work Phone: Start: 06-05-2022 Tobacco smoking status [facility] Tobacco smoking consumption unknown [facility] Start: 1945 Sex Assigned At Female [facility] Start: 12-23-2024 End: 12-23-2024 Sex Female (finding) [facility] NEGATED: Highlighted row - - [facility] Work Phone: Goals Date Patient Goal [...] health issues are not documented Disease [facility] Work Phone: Mental Status Date Assessment Result Facility NEGATED: Highlighted row Cognitive function [Interpretation] Cognitive status health issues are not documented Disease [facility] Work Phone: Clinical Notes 08-28-2021 to 06-24-2022 Behavorial Health Intake - JACINTO Castro - 06/05/2022 11:39 PM EDT Note Date & Type Note Facility 06-24-2022 Note HNO ID: [id number] Author: LATRICE Munoz Service: Social Work Author Type: [employer] Type: Plan of Care Filed: 06/24/2022 1:44 [...] 06/28/22 Progress Towards Short Term Goals: Progressing [employer] Goals: Patient will have improved insight into illness;Patient will have achieved optimal level of functioning;Patient will verbalize benefits of compliance with medication and treatment after discharge Target Date [employer] Software Engineer Goals: 07/01/22 Progress Towards [facility] Goals: Progressing Interventions - Nursing: Offer frequent [...] 06/27/22 Progress Towards Short Term Goals: Progressing Hadoop Software Engineer Goals: Patient will demonstrate optimal level of functioning;Patient/support system will verbalize intent to comply with medication and treatment after discharge;Patient expresses examples of optimism and hope for the future Target Date Hadoop Software Engineer Goals: 06/29/22 Progress Towards Mcfp Goals: Progressing Interventions - Nursing: Obtain baseline [...] to build insig (more content not included)... [facility] 06-24-2022 Note HNO ID: [id number] Author: Robyn Roman RN Service: Psychiatry Author [...] 06/26/22 Progress Towards Short Term Goals: Progressing Hadoop Software Engineer Goals: Patient will have improved insight into illness;Patient will have achieved optimal level of functioning;Patient will verbalize benefits of compliance with medication and treatment after discharge;Patient will participate in cognitive, physical and social activities;Patient will display nonviolent behavior towards others, with aid of medication and supportive therapy Target Date Mcfp Goals: 06/28/22 Progress Towards Mcfp Goals: Progressing Interventions - Nursing: Offer frequent [...] grounding techniques and (more content not included)... [facility] 06-24-2022 Note HNO ID: [id number] Author: John Penny MD Service: Psychiatry Author Type: Physician Type: Progress Notes Filed: 06/24/2022 8:16 AM Note Text: INPATIENT PROGRESS NOTE PSYCHIATRY PATIENT: Chay Teague DATE OF SERVICE: June 24, 2022 The Interdisciplinary team met and reviewed treatment goals and discharge planning CHEIF COMPLANT: Seen in day area Improving Discussed in team Plan to be discharged later on today to [facility] care facility 1-HPI: Patient is compliant with [...] PO. Will continue to monitor." Scarlett Snider Restoration Silversmith most recent and updated notes is reviewed. [...] Date Value 05/23 (more content not included)... [facility] 06-23-2022 Note HNO ID: [id number] Author: Trisha Mcigll MD Service: Psychiatry Author Type: Physician Type: [...] mg tab(s) (ZyPREXA) 5 mg ORAL BID / DATA: Diagnostic tests [...] DATE: June 23, 2022 TIME: 8:22 PM [facility] 06-21-2022 Note HNO ID: [id number] Author: Trisha Mcgill MD Service: Psychiatry Author [...] DATE: June 21, 2022 TIME: 9:24 PM [facility] 06-21-2022 Note HNO ID: [id number] Author: Teo López RN Service: Behavioral Health [...] 06/26/22 Progress Towards Short Term Goals: Progressing Hadoop Software Engineer Goals: Patient will have improved insight into illness;Patient will have achieved optimal level of functioning;Patient will verbalize benefits of compliance with medication and treatment after discharge;Patient will participate in cognitive, physical and social activities;Patient will display nonviolent behavior towards others, with aid of medication and supportive therapy Target Date Mcfp Goals: 06/28/22 Progress Towards Hadoop Software Engineer Goals: Progressing Interventions - Nursing: Offer frequent [...] activities to ch (more content not included)... [facility] 06-19-2022 Note HNO ID: [id number] Author: Trisha Mcgill MD Service: Psychiatry Author [...] DATE: June 19, 2022 TIME: 11:54 PM [facility] 06-19-2022 Note HNO ID: [id number] Author: Teo López RN Service: Behavioral Health [...] 06/26/22 Progress Towards Short Term Goals: Progressing Hadoop Software Engineer Goals: Patient will have improved insight into illness;Patient will have achieved optimal level of functioning;Patient will participate in cognitive, physical and social activities;Patient will display nonviolent behavior towards others, with aid of medication and supportive therapy;Patient will verbalize benefits of compliance with medication and treatment after discharge Target Date Hadoop Software Engineer Goals: 06/28/22 Progress Towards Mcfp Goals: Progressing Interventions - Nursing: Offer frequent [...] promote grounding techniques (more content not included)... [facility] 06-17-2022 Note HNO ID: [id number] Author: Trisha Mcgill MD Service: Psychiatry Author [...] DATE: June 17, 2022 TIME: 11:51 PM [facility] 06-17-2022 Note HNO ID: [id number] Author: Melisa Peña RN Service: Behavioral Health [...] 06/17/22 Progress Towards Short Term Goals: Progressing Hadoop Software Engineer Goals: Patient will have improved insight into illness;Patient will have achieved optimal level of functioning;Patient will verbalize benefits of compliance with medication and treatment after discharge;Patient will participate in cognitive, physical and social activities Target Date Hadoop Software Engineer Goals: 06/19/22 Progress Towards Mcfp Goals: Progressing Interventions - Nursing: Offer frequent [...] as needed;Offer constructive (more content not included)... [facility] 06-15-2022 Note HNO ID: [id number] Author: Trisha Mcgill MD Service: Psychiatry Author Type: Physician Type: Progress Notes Filed: 06/16/2022 12:00 AM Note Text: PROGRESS NOTE BEHAVIORAL HEALTH SERVICE DATE: 06/15/2022 SERVICE TIME: 3448 The Interdisciplinary team met and reviewed treatment [...] on disposition. DISCHARGE PLANNING: when stable. SIGNATURE: Trisah Mcgill MD PATIENT NAME: Chay Teague DATE: June 15, 2022 TIME: 11:54 PM [facility] 06-14-2022 Note HNO ID: [id number] Author: John Penny MD Service: Psychiatry Author [...] took her medications whole with pudding. " Scarlett Snider Restoration Silversmith most recent and updated notes is reviewed. Pt sleep remains poor, during the day she is visible on unit but confused. She frequently slaps table with open palm and calls out for help for no obvious reason. Pt continues to appear somewhat guarded and distrusting of everyone except on of her daughters. Daughter was able to complete enrollment for [facility] dual advantage, effective date 06/22/22. SW [...] of which s (more content not included)... [facility] 06-13-2022 Note HNO ID: [id number] Author: John Penny MD Service: Psychiatry Author [...] nonsensical speech." [facility] Restoration Silversmith most recent and updated notes is reviewed. ASHLEY faxed clinicals to [facility]. director financial systems informed SW that they are not in network with [employer] [facility] ASHLEY called Pt's daughter to update and she states that she will apply for [employer] and that [facility] remain their first FOC." Medical comorbidity is [...] spend in counseling (more content not included)... [facility] 06-12-2022 Note HNO ID: [id number] Author: Iva Bailey RN Service: Behavioral Health [...] 06/17/22 Progress Towards Short Term Goals: Progressing Hadoop Software Engineer Goals: Patient will have improved insight into illness;Patient will have achieved optimal level of functioning;Patient will verbalize benefits of compliance with medication and treatment after discharge;Patient will participate in cognitive, physical and social activities Target Date Hadoop Software Engineer Goals: 06/19/22 Progress Towards Hadoop Software Engineer Goals: Progressing Interventions - Nursing: Offer frequent [...] schedule and encou (more content not included)... [facility] 06-12-2022 Note HNO ID: [id number] Author: John Penny MD Service: Psychiatry Author [...] day area." P K[facility] Restoration Silversmith most recent and updated notes is reviewed. ASHLEY received return call from Estephania in admissions at [facility]. She states that Pt would be coming LTC and would need a PAS (ASHLEY submitted for one and received favorable determination). She provided fax: [phone] for clinical information and her work cell for updates: [phone]. ASHLEY to send updated information. " Medical [...] spend in c (more content not included)... [facility] 06-11-2022 Note HNO ID: [id number] Author: John Penny MD Service: Psychiatry Author [...] at times, observed patting other Patient's knee. Ssds Mk 2 Advanced Operator redirected Patient and educated on appropriate behavior. Patient cooperative with teaching. Med compliant whole in applesauce, but did spit out Colace gel capsule several times due to confusion." Scarlett Snider Restoration Silversmith most recent and updated notes is reviewed. ASHLEY placed call to [facility] admission department. ASHLEY informed admission director [...] of which s (more content not included)... [facility] 06-10-2022 Note HNO ID: [id number] Author: Melisa Peña RN Service: Behavioral Health [...] 06/10/22 Progress Towards Short Term Goals: Progressing Mcfp Goals: Patient will have improved insight into illness;Patient will have achieved optimal level of functioning;Patient will verbalize benefits of compliance with medication and treatment after discharge;Patient will participate in cognitive, physical and social activities;Patient will display nonviolent behavior towards others, with aid of medication and supportive therapy Target Date Hadoop Software Engineer Goals: 06/14/22 Progress Towards Hadoop Software Engineer Goals: Progressing Interventions - Nursing: Offer frequent [...] 06/06/22 Time Initiat (more content not included)... [facility] 06-10-2022 Note HNO ID: [id number] Author: John Penny MD Service: Psychiatry Author [...] PRN given with good results." P Krystal Snider Restoration Silversmith most recent and updated notes is reviewed. [...] FROM THE CHART OR MODIFY PRINTED COPY. [facility] 06-09-2022 Note HNO ID: [id number] Author: Beba Bray MD Service: ? Author [...] DATE: June 09, 2022 TIME: 1:07 PM [facility] 06-09-2022 Note HNO ID: [id number] Author: John Penny MD Service: Psychiatry Author [...] -pleasantly confused [facility] Rest[employer] Silversmith most recent and updated notes is reviewed. [...] FROM THE CHART OR MODIFY PRINTED COPY. [facility] 06-09-2022 Note HNO ID: [id number] Author: Interface Note Service: ? Author Type: ? Type: Progress Notes Filed: 06/09/2022 1:02 PM Note Text: Epic Scheduled Downtime: 06/09/2022 1:00:00 AM to 06/09/2022 2:07:00 AM [facility] 06-08-2022 Note HNO ID: [id number] Author: Beba Bray MD Service: ? Author [...] DATE: June 08, 2022 TIME: 12:08 PM [facility] 06-08-2022 Note HNO ID: [id number] Author: John Penny MD Service: Psychiatry Author [...] in applesauce" [facility] Restoration Silversmith most recent and updated notes is reviewed. Pt discussed in treatment team and observed on unit. Pt does appear more alert and organized than on previous day. She will remain inpatient through the weekend. SW to submit PAS on Friday (06/10/22) and follow units with [facility] with updated clinical information" Medical comorbidity [...] FROM THE CHART OR MODIFY PRINTED COPY. [facility] 06-08-2022 Note HNO ID: [id number] Author: Interface Note Service: ? Author Type: ? Type: Progress Notes Filed: 06/08/2022 3:51 AM Note Text: Epic Scheduled Downtime: 06/08/2022 1:00:00 AM to 06/08/2022 3:36:00 AM [facility] 06-07-2022 Note HNO ID: [id number] Author: Teo López RN Service: Behavioral Health [...] 06/10/22 Progress Towards Short Term Goals: Progressing Hadoop Software Engineer Goals: Patient will have improved insight into illness;Patient will have achieved optimal level of functioning;Patient will verbalize benefits of compliance with medication and treatment after discharge;Patient will participate in cognitive, physical and social activities;Patient will display nonviolent behavior towards others, with aid of medication and supportive therapy Target Date Hadoop Software Engineer Goals: 06/14/22 Progress Towards Hadoop Software Engineer Goals: Progressing Interventions - Nursing: Offer frequent [...] Mood Disorder As (more content not included)... [facility] 06-07-2022 Note HNO ID: [id number] Author: John Penny MD Service: Psychiatry Author [...] to eat all meals. " Scarlett Snider Restoration Silversmith most recent and updated notes is reviewed. Daughter states that Pt has not responded well to Haldol in the past. She states that Pt was on waitlist for [facility] but following this episode they are willing to take her once stabilized. Daughter is agreeable to SW reaching out and sharing clinical information with ECF as needed. SW to follow with continued collateral contact and discharge planning as Pt's mental status improves. SW to submit PAS and send [facility] clinical updates once Pt is stabilized." Medical [...] frontal lobe dementi (more content not included)... [facility] 06-06-2022 Note HNO ID: [id number] Author: John Penny MD Service: Psychiatry Author Type: Physician Type: Progress Notes Filed: 06/06/2022 7:00 AM Note Text: HANDP dictated # [id number] JOHN PENNY MD 06/06/2022 [facility] 06-05-2022 Miscellaneous Notes BEHAVIORAL HEALTH INTAKE NOTE SERVICE DATE: 06/06/2022 SERVICE TIME: 12:08AM Nature of the crisis: Confusion Presenting Problem: Chay Teague is a 77 year old female brought in to [place] ED from Home by family for confusion. [...] not steal the car back for her. Ssds Mk 2 Advanced Operator attempted interview with pt telephonically. It [...] information obtained from pt's daughter, Jennifer Hidalgo ([phone]). Daughter reports that pt has underlying dementia, [...] with pt being on the waitlist at [facility]. PAST MEDICAL HISTORY: PAST MEDICAL HISTORY [...] (Unable to assess.) Is the Patient a [place]: (Unable to assess.) Stressors: (Unable to assess.) Legal History: No Legal History Legal Details: None to report How Legal Issues Were Verified: [facility] Anesthesiology Tech of Courts Website;[employer] [employer] Sex Offender Website;[facility]'s Sexual Offender Website Gender Specific Test: Not Applicable Sex at Time of : Female Patient Identified Gender: (Unable to assess.) Preferred Pronoun: (Unable to assess.) Sexual Orientation: (Unable to assess.) Cultural/Catholic Concerns Cultural Issues or Concerns That Might Affect Treatment: Unable to assess. Catholic/Spiritual Issues or Concerns That Might Affect Treatment: [...] in interview due to pt symptomatology. Other Collision Repair Technician Described Mood: Pt is calm and cooperative, but not interviewable Collision Repair Technician: ED LENIN Hill Observed/Reported: Other: See Comment (Unable to assess.) Range of Affect: (Unable to assess.) Sleep: (Unable to assess.) Appetite: (Unable to assess.) Energy: (Unable to assess.) Anxiety/Trauma: (Unable to assess.) Non-Suicidal Self Injury Non-Suicidal Self Injury: (Unable to assess.) Suicidal Ideation Suicidal Ideation: (Pt's daughter denies hearing pt make mention of any SI. Ssds Mk 2 Advanced Operator is unable to assess with pt directly.) Homicidal Ideation Homicidal Ideation: (Pt's daughter denies hearing pt make mention of any SI. Ssds Mk 2 Advanced Operator is unable to assess with pt directly.) Non-Lethal Harm to Others or Damage/Destruction to Property Harm to Others or Damage/Destruction of Property: (Pt's daughter denies hearing pt make mention of any SI. Ssds Mk 2 Advanced Operator is unable to assess with pt [...] John Penny Admission Status: Full Admit Unit: [facility] 6 ([facility]) Bed#: 692-2 Report Given To: Vitaliy Report Date: 06/06/22 Report Time: 223 Admission Type: Medical Certificate SIGNATURE: JACINTO Castro PATIENT NAME: Chay Teague DATE: June 05, 2022 TIME: 11:39 PM documented in this encounter [facility] 11-10-2021 Note Hospitalist Discharg e Summary [...] follow the di (more content not included)... [facility] 08-28-2021 History of Presen t illness [...] more off balance than her normal. [facility] Work Phone: Evaluation note Diagnosis Vitamin D deficiency Unspecified vitamin D deficiency Recurrent depression (HCC) Major depressive disorder, recurrent episode, unspecified Essential hypertension Unspecified essential hypertension Other specified hypothyroidism Mild intermittent asthma without complication Unspecified asthma documented in this encounter [facility] Work Phone: Evaluation note* Diagnosis Vitamin D deficiency Unspecified vitamin D deficiency Other specified hypothyroidism documented in this encounter [facility] [employer] Phone: Evaluation note* Diagnosis Dementia, senile with delusions, with behavioral disturbance (HCC)- Primary [facility] noteNo assessment information availableWK[facility] Work Phone: Reason for referral (narrative)No reason for referral information availableWKettering Health Main Campus Work Phone: Summary Purpose Family History No Family History Records FoundNo Family History Records FoundNo Family History Records FoundNo Family History Records FoundNo Family History Records FoundNo Family History Records FoundNo Family History Records FoundNo Family History Records FoundNo Family History Records FoundNo Family History Records Found Advance Directives No Advanced Directives Records FoundDocuments on File Type Date Recorded Patient Manager Commodities Expl anation Advance Directives and Living Will Advance Directives and Living Will 03/14/2017 10:57 AM Power of Culture Manager 11/09/2018 4:07 PM POA - Jennifer Gwen Latest Code Status on File Code Status Date Activated Date Inactivated Comments DNR-CCA 03/06/2020 5:15 PM DNR-CCA 03/06/2017 8:30 PM 03/09/2017 4:35 PM Documents on File Type Date Recorded Patient Manager Commodities Expl anation ACP-Advance Directive ACP-Advance Directive 03/14/2017 10:57 AM ACP-Power of Culture Manager 11/09/2018 4:07 PM P OA - Jennifer Gwen Latest Code Status on File Code Status Date Activated Date Inactivated Comments DNR-CCA 03/06/2020 5:15 PM 03/09/2020 3:12 PM Latest Code Status on File Code Status Date Activated Date Inactivated Comments DNR-CCA 03/06/2017 8:30 PM 03/09/2017 4:35 PM Documents on File Type Date Recorded Patient Manager Commodities Expl anation ACP-Advance Directive ACP-Power of Culture Manager 11/09/2018 4:07 PM P OA - Jennifer Hidalgo ACP-Advance Directive 03/14/2017 10:57 AM Discharge Instructions * Pharmacy* Lilia Tracey [facility] - 03/07/2020 9:16 AM EDT * Discharge Instr - Lab* Deirdre Storm RN - 03/09/2020 11:36 AM EDT Your physician has ordered skilled home care services for you. Your home care will be provided by: [facility] [phone] * Additional Instructions* John Coe MD - 03/06/2020 Only take the Effexor; Stop taking the Aricept and Buspar; I put in a number for a Metal Crafts Teacher if you wish [facility] the [facility] Learning About Delirium What is delirium? [...] Where can you learn more? Go to [email or web address] and sign in to your [email or web address] account. Enter Z511 in the Search Health Information box to learn more about Learning About Delirium. If you do not have an account, please click on the "Sign Up Now" link. Current as of: October 22, 2019 Content Version: 12.5 [employer]. Care instructions adapted under license by [employer]. If you have questions about a medical condition or this instruction, always ask your healthcare professional. [employer] disclaims any warranty or liability for your [...] and the need for follow-up with a physician/ACCOUNT AUDITOR/PA after discharge. Discussed the patient s personal [...] through Care Everywhere. * Altered Mental Status (Croatian) documented in this encounter History of Present Illness * Malka Wen OTA - 03/09/2020 9:32 AM EDT Occupational Therapy Facility/Department: [facility] 4S TELEMETRY Daily Treatment Note NAME: Chay Teague : 1945 Date of Service: 03/09/2020 Discharge Recommendations: Subacute/Half-Way Facility Assessment Performance deficits / Impairments: Decreased [...] - 03/08/2020 3:24 PM EDT Discussed with MANAGER MAIL- pt advanced to Dental soft and is [...] 1945 Date of Service: 03/08/2020 Discharge Recommendations: Subacute/Half-Way Facility Assessment Assessment: Pt appears more clear [...] 25 Minutes(ther ex and gait) Bozena Shafer, EDI PROGRAMMER * Meghna Rothman RN - 03/08/2020 11:30 AM EDT Patient up to chair. Chair alarm in place. * Yoly Cooney SLP - 03/08/2020 10:47 AM EDT Speech Language Pathology Facility/Department: [facility] TELEMETRY Dysphagia Treatment Note NAME: Chay Teague [...] Pain:no current complaint S: Pt was alert, hospice patient care secretary at bedside. O: Assess advance diet trials. [...] soft. Total Minutes: 24 minutes Yoly Cooney M.A.CCC/MANAGER MAIL Speech-Language Pathologist * John Coe MD - 03/08/2020 9:07 AM EDT Hospitalist Progress Note 03/08/2020 9:07 AM [phone]: Please page tn [phone] for patient care issues. [phone]: Please page [facility] Hospitalist for any issues. Subjective: Admit Date: 03/06/2020 PCP: Cynthia Uribe MD Interval History: Pt continues to improve. Per ag equipment field service technician, mentation is near "90 %". Pt more talkative and able to converse with everyone in the room. No overnight issues. DIET DYSPHAGIA PUREED; Mildly Thick ([place]) Patient Vitals for the past 96 hrs [...] Labial Abscess - Unable to visualize; Outpatient Parallel Computing Software Engineer referral Diagnosis Date Anxiety Asthma Dementia (HCC) Depression History of blood transfusion Hypertension Hypothyroidism Plan - Monitor Mentation - PT/OT -am labs, replace lytes prn -increase activity -DVT prophylaxis: [x] Lovenox [] Heparin [] SCDs [x] Encourage ambulation [] Already on Anticoagulation Advance Directive: DNR-CCA Discharge plannin-48 hours John Coe MD Division of Hospitalist Medicine Inpatient Medical Services PAGER: [phone] * Meghna Rothman RN - 03/08/2020 8:15 AM EDT Spoke with patients daughter Jennifer regarding updates. * Julia Lantigua PT - 03/07/2020 3:13 PM EDT Physical Therapy Facility/Department: [facility] 4S TELEMETRY Initial Assessment NAME: Chay Teague : 1945 Date of Service: 03/07/2020 Having reviewed the treatment plan and goals for this patient, I certify that the plan of care below is medically necessary and appropriate. Discharge Recommendations: Subacute/Half-Way Facility PT Equipment Recommendations Other: TBD at [...] has noted cognitive deficits, h/o dementia and [place] which may impact her ability to learn. [...] Ambulation Assistance: Independent Transfer Assistance: Independent Active Intensive Care Nurse: No Patient's Intensive Care Nurse Info: Family Mode of Transportation: Car Occupation: [...] recall of recent events;Decreased short term memory;Decreased retirement memory Safety Judgement: Decreased awareness of need [...] for falls, Left in bed, Nurse notified -[facility] Score [facility] Inpatient Mobility Raw Score : 10 (03/07/20 1504) [facility] Inpatient T-Scale Score : 32.29 (03/07/20 1504) Mobility Inpatient CMS 0-100% Score: 76.75 (03/07/20 1504) Mobility Inpatient [facility] G-Code Modifier : CL (03/07/20 1504) [facility] Mobility Inpatient How much difficulty turning [...] climbing 3-5 steps with a railing?: Total [facility] Inpatient Mobility Raw [facility] : [facility] [...] appropriate. 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 AM-PAC Score [facility] Inpatient Daily Activity Raw Score: 16 (03/07/20 1505) [facility] Inpatient ADL T-Scale Score : 35.96 [...] 03/07/2020 10:49 AM EDT Physical Therapy Facility/Department: [facility] 4S TELEMETRY Initial Assessment NAME: Chay [...] NPO due to failed nursing swallow screen. MANAGER MAIL consulted for further evaluation. Provide diet textures per MANAGER MAIL recommendation. 2. Will assess PO intake adequacy once diet is advance to determine need for additional ONS. 3. Monitor for timely nutrition progression, wts, and labs. RD will follow. Nutrition Assessment: Pt admit with delirium/AMS. Pt is currently NPO due to failing nursing bedside swallow assessment. MANAGER MAIL consult ordered for further evaluation. Pt with [...] fluid accumulation, Extremities(+1 non pitting BLE) 6. Paper Cutting Machine Operator Strength-Not measured Nutrition Risk Level: High Nutrient Needs: Estimated Daily Total Kcal: 9836-4268 kcals(28-30) Estimated Daily Protein (g): 52-62(1-1.2) Estimated [...] Change: , no significant wt loss noted [place] Body Wt: 115 lb (52.2 kg), % [place] Body 174% BMI Classification: BMI 35.0 - 39.9 Obese Class II Nutrition Interventions: Continue NPO Continued Inpatient Monitoring, Swallow Evaluation, Speech Therapy Nutrition Evaluation: Evaluation: Goals set Goals: Pt will receive/tolerate adequate nutrition with safe swallow Monitoring: Nutrition Progression, Diet Tolerance, I&O, Mental Status/Confusion, Weight, Pertinent Labs, Chewing/Swallowing, Monitor Bowel Function Contact Number: [phone] * Yoly Cooney, MANAGER MAIL - 03/07/2020 8:17 AM EDT Speech Language [...] Cognition currently effecting eating/swallowing. Treatment Plan Requires MANAGER MAIL Intervention: Yes Duration/Frequency of Treatment: 3 visits Recommended Diet and Intervention Diet Solids Recommendation: Dysphagia Pureed (Dysphagia I) Liquid Consistency Recommendation: Mildly Thick ([place]) Recommended Form of Meds: PO Recommendations: Total feed;Assist feed Therapeutic Interventions: Patient/Family education Compensatory Swallowing Strategies Compensatory Swallowing Strategies: Alternate solids and liquids;Upright as possible for all oral intake;External pacing Treatment/Goals Short-term Goals Timeframe for Short-term Goals: 3 visits Goal 1: Pt will tolerate advance trials with MANAGER MAIL. Goal 2: Pt will tolerate puree diet with mildly thick liquids without respiratory distress/symtoms aspiration. Goal 3: Pt will advance to soft diet as tolerated. General Chart Reviewed: Yes Subjective Subjective: can intake worker visiting at bedside Behavior/Cognition: Lethargic;Requires cueing Respiratory Status: O2 via nasual cannula O2 Device: Nasal cannula Liters of Oxygen: 2 L Communication Observation: Aphasia(fluctuated.) Follows Directions: Simple Dentition: Dentures top;Dentures bottom Patient Positioning: Upright in bed Baseline Vocal Quality: Normal Volitional Swallow: Delayed Prior Dysphagia History: None indicated in [facility] Consistencies Administered: Dysphagia Minced and Moist (Dysphagia II);[place] - cup;Thin - cup;Ice Chips Vision/Hearing Vision [...] Patient Education Response: Needs reinforcement Therapy Time MANAGER MAIL Individual Minutes Time In: 1010 Time Out: 1036 Minutes: 26 RONALD Higgins 03/07/2020 1:38 PM * John Coe MD - 03/07/2020 7:34 AM EDT Hospitalist Progress Note 03/07/2020 7:34 AM [id number]: Please page tn [phone] for patient care issues. [phone]: Please page [facility] night Hospitalist for any issues. Subjective: Admit Date: 03/06/2020 PCP: Cynthia Uribe MD Interval History: Asphalt Layer in the room and states mentation is [...] texture, turgor normal. No rashes or lesions Parallel Computing Software Engineer: Unable to visualize cyst given body habitus and lack of speculum (OB-Parallel Computing Software Engineer on discharge recommended). Neurologic: Neurovascularly intact without [...] Labial Abscess - Unable to visualize; Outpatient Parallel Computing Software Engineer referral Diagnosis Date Anxiety Asthma Dementia (HCC) Depression History of blood transfusion Hypertension Hypothyroidism Plan - Monitor Mentation - PT/OT - Parallel Computing Software Engineer referral as outpatient -am labs, replace lytes prn -increase activity -DVT prophylaxis: [x] Lovenox [] Heparin [] SCDs [x] Encourage ambulation [] Already on Anticoagulation Advance Directive: DNR-CCA Discharge planning: TBD John Coe MD Division of Hospitalist Medicine Inpatient Medical Services PAGER: [phone] * Ronda Thomas RN - 03/06/2020 6:56 [...] to beginDysphagia Pureed Diet with Mildly Thick ([place]) liquids. Proceed to formal Speech Pathologist Swallow [...] Complaint and Reason for Visit Chief Complaint DETENTION LAB WOR K LABWORK DETENTION LABWORK Chief Complaint DETENTION LAB WOR K LABWORK DETENTION LABWORK LABWORK Chief Complaint DETENTION LABWORK LABWORK DETENTION LABWORK Chief Complaint LABWORK DETENTION LABWORK DETENTION LABWORK Chief Complaint DETENTION LABWORK DETENTION LAB WORK Chief Complaint DETENTION LABWORK DETENTION LAB WORK DETENTION LAB WORK Chief Complaint DETENTION LAB WOR K DETENTION LAB WORK DETENTION LAB WORK Chief Complaint DETENTION LAB WOR K DETENTION LAB WORK DETENTION LAB WORK LABWORK Chief Complaint DETENTION LAB WOR K DETENTION LAB WORK LABWORK LABWORK Chief Complaint Admit Date LABWORK August 30, 2024 5 :00am DETENTION LAB WORK September 16 4:00am DETENTION LAB WORK November 10 5:00am LABWORK November 17, 2024 5:00am DETENTION LAB WORK November 22, 2024 5: 00am DETENTION LAB WORK December 09, 2024 4 :00am Additional Source Comments INFORMATION SOURCE (unrecogn ized section and content) DATE CREATED AUTHOR 03/17/2018 [facility] DATE CREATED AUTHOR AUTHOR'S ORGANIZ ATION 03/09/2019 [facility] DATE CREATED AUTHOR AUTHOR'S ORGANIZ ATION 03/15/2019 [facility] DATE CREATED AUTHOR AUTHOR'S ORGANIZ ATION 08/31/2021 [facility] DATE CREATED AUTHOR AUTHOR'S ORGANIZ ATION 09/18/2021 [facility] DATE CREATED AUTHOR AUTHOR'S ORGANIZ ATION 11/21/2021 [facility] DATE CREATED AUTHOR AUTHOR'S ORGANIZ ATION 06/22/2022 [facility] DATE CREATED AUTHOR AUTHOR'S ORGANIZ ATION 06/25/2022 [facility] DATE CREATED AUTHOR AUTHOR'S ORGANIZ ATION 08/28/2022 [facility] DATE CREATED AUTHOR AUTHOR'S ORGANIZ ATION 06/09/2025 [facility] Reason for Visit (unrecogniz [...] or prosecute any alcohol or drug abuse patient.[facility] Care Teams (unrecognized sec tion and content) Team Status: Inactive Member Role Status Dates Saurabh MANJARREZ MD Attending Provider, Referring Pro vider Active Team Status: Inactive Member Role Status Dates Saurabh MANJARREZ MD Attending Provider Active Manual Tester Relationship Specialty Start Date End Date Cynthia Uribe MD [address] [facility] [address] [place] [address] PCP - General Family Practice 06/05/22 Team [...] Status: Inactive Member Role Status Dates Saurabh Jim MANJARREZ MD Attending Provider Active S tart: [...] BE BASED ON THE PRIMARY CLINICAL RECORDS. [facility]. provides no warranty or guarantee of the accuracy or completeness of information in this document.
[2025-08-01 08:28] LABS: Valproic Acid (Depakene) Level 26 ug/mL (50-100)
[2025-08-01 08:46] LABS: Vitamin D,25 Hydroxy 53.3 ng/mL (30-100)
== END ==
LOC: OLS.ACH 05:00
PROVIDERS: Visit Provider Internal Medicine
DX: F29 Unspecified psychosis not due to a substance or known physiological condition (principal)
CPT/HCPCS: 36415; 80164; 82306

== ENCOUNTER → 2025-08-15 | Outpatient (REF) | payer MEDICARE, SELFPAY ==
--- OUTSIDE RECORDS SUMMARY | 2025-08-15 03:49 | XMS RPT_ITS | CCD ---
Author Organization [facility] Care Team Providers Care Change Control Coordinator Name Role Phone Barbara, Scott Unavailable Unavailable Isbell, Keena Unavailable Unavailable Unknown, Referring Provider Unavailable Unav ailable Cynthia Uribe Unavailable Unavailable Cynthia Uribe Primary Care Provider Cynthia Uribe Primary Care Provider Jojo MARIANO, Cynthia Primary Care Provider Unknown, [...] Attending Unavailable Deperro OLS, Saurabh Referring Unavailable Medications Current Medications Medication Drug Class(es) Dates Sig (Normalized) Sig (Original) Acetaminophen (7 sources) Start: 03-06-2020 acetaminophen (TYLENOL) tablet 650 mg take 1 tablet by jovanni th every six hours as needed for pain acetaminophen (TYLENOL) 500 MG tablet Ta ke 500 mg by mouth every 6 hours as needed for Pain 0 Active [id number] 200 actuat albuterol 0.09 mg/actuat metered dose [...] MISC (5 sources) Start: 08-31-2019 [facility] Indications: Mild intermittent asthma without complication by [...] reach optimal image enhancement. polyethylene glycol 3350 07569 mg powder for oral solution (1 source) [...] 10 mL, Intravenous, PRN, Line Care, Per Field Sales Manager Request, Starting Fri03/06/20 at 1709, For 72 hours May use order for Line Care after every IV line use and Agitated Saline Bubble Study. Administration for Bubble Study per human resources services specialist request for only. Remove 1 mL 0.9% [...] Start: 02-21-2021 take 1 capsule by mo [facility] every week vitamin D (ERGOCALCIFEROL) 1.25 MG (09718 UT) CAPS capsule Indications: Vitamin D deficiency TAKE 1 CAPSULE BY MOUTH ONE TIME PER WEEK 12 capsule 0 02/21/2021 Active Start: 06-01-2020 take 1 capsule by mo [facility] every week vitamin D (ERGOCALCIFEROL) 1.25 MG (86677 UT) CAPS capsule Indications: Vitamin D deficiency TAKE 1 CAPSULE BY MOUTH ONE TIME PER WEEK 12 capsule 1 06/01/2020 Active Start: 02-01-2020 take 96896 [IU] by m outh every week 50,000 Units, Oral, WEEKLY, First dose on Fri03/07/20 at 0900 Start: 03-09-2017 take 1 capsule by mo [facility] every week vitamin D (ERGOCALCIFEROL) 57883 units capsule Take 1 capsule by mouth [...] Range Facility Valproic Acid (Depakene) Lev ladonna 08-01-2025 VALPROIC ACID 26 ug/mL Low 50-100 [facility] Comment on above: Order Comment: 105.1 Result Comment: Valp roic Acid concentrations >100 ug/mL are potentially toxic. Performed By: #### M 100.638 #### [facility] [address] [place], [address] Vitamin D,25 Hydroxyon 08-01 Vitamin D 25-OH 53.3 ng/mL Normal 30-100 [facility] Comment on above: Order Comment: 105-1 Result Comment: Kerline min D Status Deficiency: <20 ng/mL (50nmol/L) Insufficiency: 20-30 ng/mL (50-75 nmol/L) Sufficiency: 30-100 ng/mL (75-250 nmol/L) Toxicity: >100 ng/mL (>250 nmol/L) Performed By: #### L 506.1001, L501.8100 #### [facility] [address] [place], [address] CBC W/Diff, Automatedon 09-0 -2024 Absolute Lymph 3.21 X10 3/uL Normal 0.83-4.51 [facility] Comment on above: Order Comment: 105.1 Performed By: #### L 500.2500, L100.0500 #### [facility] [address] [place], [address] Absolute Neut 3.1 X10 3/uL Normal 2.0-7.7 [facility] Comment on above: Order Comment: 105.1 Performed By: #### L 500.2500, L100.0500 #### [facility] [address] [place], [address] Basophils/100 WBC (Bld) 0.7 % Normal 0-1 [facility] Comment on above: Order Comment: 105.1 Performed By: #### L 500.2500, L100.0500 #### [facility] [address] [place], [address] Eosinophils/100 WBC (Bld) 4.3 % Normal 0-5 [facility] Comment on above: Order Comment: 105.1 Performed By: #### L 500.2500, L100.0500 #### [facility] [address] [place], [address] Erythrocyte distribution width (RBC) [Ratio] 13.9 % Normal 11.6-14.6 [facility] Comment on above: Order Comment: 105.1 Performed By: #### L 500.2500, L100.0500 #### [facility] [address] [place], [address] Hematocrit (Bld) [Volume fraction] 42.7 % Normal 37-47 [facility] Comment on above: Order Comment: 105.1 Performed By: #### L 500.2500, L100.0500 #### [facility] [address] [place], [address] Hemoglobin (Bld) [Mass/Vol] 13.9 g/dL Normal 12.0-15.0 [facility] Comment on above: Order Comment: 105.1 Performed By: #### L 500.2500, L100.0500 #### [facility] [address] [place], [address] IG% 0.300 Normal 0.0-0.9 [facility] Comment on above: Order Comment: 105.1 Result Comment: IG% - Immature Granulocytes (promyelocytes, myelocytes and metamyelocytes) > 1% indicates that a LEFT SHIFT is Present. Performed By: #### L 500.2500, L100.0500 #### [facility] [address] [place], [address] Lymphocytes/100 WBC (Bld) 44.3 % High 19-41 [facility] Comment on above: Order Comment: 105.1 Performed By: #### L 500.2500, L100.0500 #### [facility] [address] [place], [address] MCH (RBC) [Entitic mass] 32.1 pg High 27.0-32.0 [facility] Comment on above: Order Comment: 105.1 Performed By: #### L 500.2500, L100.0500 #### [facility] [address] [place], [address] MCHC (RBC) [Mass/Vol] 32.6 g/dL Normal 32-36 [facility] Comment on above: Order Comment: 105.1 Performed By: #### L 500.2500, L100.0500 #### [facility] [address] [place], [address] MCV (RBC) [Entitic vol] 98.6 fL Normal 81-99 [facility] Comment on above: Order Comment: 105.1 Performed By: #### L 500.2500, L100.0500 #### [facility] [address] [place], [address] Monocytes/100 WBC (Bld) 7.3 % Normal 0-10 [facility] Comment on above: Order Comment: 105.1 Performed By: #### L 500.2500, L100.0500 #### [facility] [address] [place], [address] Neutrophils/100 WBC (Bld) 43.1 % Low 47-70 [facility] Comment on above: Order Comment: 105.1 Performed By: #### L 500.2500, L100.0500 #### [facility] [address] [place], [address] Nucleated RBC (Bld) [#/Vol] 0 10*3/uL Normal 0-5 [facility] Comment on above: Order Comment: 105.1 Performed By: #### L 500.2500, L100.0500 #### [facility] [address] [place], [address] Platelet mean volume (Bld) [Entitic vol] 11.8 fL Normal 6.2-12.0 [facility] Comment on above: Order Comment: 105.1 Performed By: #### L 500.2500, L100.0500 #### [facility] [address] [place], [address] Platelets (Bld) [#/Vol] 213 10*3/uL Normal 150-450 [facility] Comment on above: Order Comment: 105.1 Performed By: #### L 500.2500, L100.0500 #### [facility] [address] [place], [address] RBC (Bld) [#/Vol] 4.33 10*6/uL Normal 4.2-5.4 [facility] Comment on above: Order Comment: 105.1 Performed By: #### L 500.2500, L100.0500 #### [facility] [address] [place], [address] RDW SD 51.1 fl High 35.1-43.9 [facility] Comment on above: Order Comment: 105.1 Performed By: #### L 500.2500, L100.0500 #### [facility] [address] [place], [address] WBC (Bld) [#/Vol] 7.3 10*3/uL Normal 4.4-11.0 [facility] Comment on above: Order Comment: 105.1 Performed By: #### L 500.2500, L100.0500 #### [facility] [address] [place], [address] Comprehensive Metabolic Prof ilon 05-26-2025 Albumin [Mass/Vol] 3.5 g/dL Normal 3.4-4.8 [facility] Comment on above: Order Comment: 105.1 Performed By: #### L 500.2500, L100.0500 #### [facility] [address] [place], [address] Albumin/Globulin [Mass ratio] 1.2 {ratio} Normal 0.9-2.4 [facility] Comment on above: Order Comment: 105.1 Performed By: #### L 500.2500, L100.0500 #### [facility] [address] [place], [address] ALK PHOS 55 U/L Normal 35-104 [facility] Comment on above: Order Comment: 105.1 Performed By: #### L 500.2500, L100.0500 #### [facility] [address] [place], [address] ALT [Catalytic activity/Vol] 7 U/L Normal <=34 [facility] Comment on above: Order Comment: 105.1 Performed By: #### L 500.2500, L100.0500 #### [facility] [address] [place], [address] AST [Catalytic activity/Vol] 19 U/L Normal <=31 [facility] Comment on above: Order Comment: 105.1 Performed By: #### L 500.2500, L100.0500 #### [facility] [address] [place], [address] Bilirubin [Mass/Vol] 0.57 mg/dL Normal 0.00-1.30 [facility] Comment on above: Order Comment: 105.1 Performed By: #### L 500.2500, L100.0500 #### [facility] [address] [place], [address] BUN/CRE 23.0 RATIO High 10-20 [facility] Comment on above: Order Comment: 105.1 Performed By: #### L 500.2500, L100.0500 #### [facility] [address] [place], [address] Calcium [Mass/Vol] 9.1 mg/dL Normal 7.6-11.0 [facility] Comment on above: Order Comment: 105.1 Performed By: #### L 500.2500, L100.0500 #### [facility] [address] [place], [address] Chloride [Moles/Vol] 106 mmol/L Normal 98-108 [facility] Comment on above: Order Comment: 105.1 Performed By: #### L 500.2500, L100.0500 #### [facility] [address] [place], [address] CO2 [Moles/Vol] 27.6 mmol/L Normal 21.0-32.0 [facility] Comment on above: Order Comment: 105.1 Performed By: #### L 500.2500, L100.0500 #### [facility] [address] [place], [address] Creatinine [Mass/Vol] 0.83 mg/dL Normal 0.70-1.20 [facility] Comment on above: Order Comment: 105.1 Performed By: #### L 500.2500, L100.0500 #### [facility] [address] [place], [address] GAP 9 Normal 5-15 [facility] Comment on above: Order Comment: 105.1 Performed By: #### L 500.2500, L100.0500 #### [facility] [address] [place], [address] GFR/1.73 sq M.predicted among non-blacks MDRD (S/P/Bld) [Vol rate/Area] 71 mL/min/{1.73_m2} Normal >60 [facility] Comment on above: Order Comment: 105.1 Result Comment: mL/m in/1.73m2 CKD-EPI Creatinine Equation (2020) Performed By: #### L 500.2500, L100.0500 #### [facility] [address] [place], [address] Globulin (S) [Mass/Vol] 3.0 g/dL Normal 2.2-4.2 [facility] Comment on above: Order Comment: 105.1 Performed By: #### L 500.2500, L100.0500 #### [facility] [address] [place], [address] Glucose [Mass/Vol] 80 mg/dL Normal 70-99 [facility] Comment on above: Order Comment: 105.1 Performed By: #### L 500.2500, L100.0500 #### [facility] [address] [place], [address] Potassium [Moles/Vol] 4.1 mmol/L Normal 3.3-5.1 [facility] Comment on above: Order Comment: 105.1 Performed By: #### L 500.2500, L100.0500 #### [facility] [address] [place], [address] Sodium [Moles/Vol] 143 mmol/L Normal 133-145 [facility] Comment on above: Order Comment: 105.1 Performed By: #### L 500.2500, L100.0500 #### [facility] [address] [place], [address] T PROT 6.5 g/dL Normal 5.9-8.4 [facility] Comment on above: Order Comment: 105.1 Performed By: #### L 500.2500, L100.0500 #### [facility] [address] [place], [address] Urea nitrogen [Mass/Vol] 19 mg/dL Normal 4-19 [facility] Comment on above: Order Comment: 105.1 Performed By: #### L 500.2500, L100.0500 #### [facility] [address] [place], [address] Lipid Profileon 05-26-2025 CHOL:HDL 4.28 Normal [facility] Comment on above: Order Comment: 105.1 Performed By: #### L 500.2500, L100.0500 #### [facility] [address] [place], [address] Cholesterol [Mass/Vol] 203 mg/dL High <=200 [facility] Comment on above: Order Comment: 105.1 Result Comment: Chol esterol level, Desirable <200 mg/dL Borderline high cholesterol 200-239 mg/dL High cholesterol >=240 mg/dL Recommendations of the NCEP Adult Treatment Panel for the following risk-cutoff thresholds for the [place] population. Performed By: #### L 500.2500, L100.0500 #### [facility] [address] [place], [address] Cholesterol in HDL [Mass/Vol] 47 mg/dL Normal [facility] Comment on above: Order Comment: 105.1 Result Comment: Sherie onal Cholesterol Education Program (NCEP) guidelines: <40 mg/dL: Low HDL-cholesterol (major risk factor for CHD) >= 60 mg/dL: High HDL-cholesterol (negative risk factor for CHD) HDL-cholesterol is affected by a number of factors, e.g. smoking, exercise, hormones, sex and age. Performed By: #### L 500.2500, L100.0500 #### [facility] [address] [place], [address] Cholesterol in LDL [Mass/Vol] 126 mg/dL Normal [facility] Comment on above: Order Comment: 105.1 Result Comment: Bord rtroqf=224-485 mg/dL Higher Csky=833 mg/dL or greater Friedwald Equation for LDL-C Performed By: #### L 500.2500, L100.0500 #### [facility] [address] [place], [address] Cholesterol in VLDL [Mass/Vol] 30 mg/dL Normal 5-40 [facility] Comment on above: Order Comment: 105.1 Performed By: #### L 500.2500, L100.0500 #### [facility] [address] [place], [address] Triglyceride [Mass/Vol] 148 mg/dL Normal [facility] Comment on above: Order Comment: 105.1 Result Comment: The drugs N-Acetylcysteine and Metamizole may falsely depress this assay. Normal range: <150 mg/dL Borderline High: 150-199 mg/dL High: 200-499 mg/dL Very High: >500 mg/dL Performed By: #### L 500.2500, L100.0500 #### [facility] [address] [place], [address] Thyroid Stim Hormone (TSH)on 05-26-2025 TSH 1.290 uIU/mL Normal 0.300-4.200 [facility] Comment on above: Order Comment: 105.1 Performed By: #### L 500.2500, L100.0500 #### [facility] [address] [place], [address] Valproic Acid (Depakene) Lev ladonna 05-09-2025 VALPROIC ACID 7 ug/mL Low 50-100 [facility] Comment on above: Order Comment: 105-1 Result Comment: Valp roic Acid concentrations >100 ug/mL are potentially toxic. Performed By: #### L 506.1001, L501.8100 #### [facility] [address] [place], [address] Vitamin D,25 Hydroxyon 05-09 Vitamin D 25-OH 40.8 ng/mL Normal 30-100 [facility] Comment on above: Order Comment: 105.1 Result Comment: Kerline min D Status Deficiency: <20 ng/mL (50nmol/L) Insufficiency: 20-30 ng/mL (50-75 nmol/L) Sufficiency: 30-100 ng/mL (75-250 nmol/L) Toxicity: >100 ng/mL (>250 nmol/L) Performed By: #### L 500.2500, L100.0500 #### [facility] [address] [place], [address] RESPIRATORY PANEL MOLECULARo n 04-08-2025 RP PANEL ADENOVIRUS Not Detected INFLUENZA A Not Detected INFLUENZA A (SUBTYPE H1) Not Detected INFLUENZA A (SUBTYPE H3) Not Detected INFLUENZA B Not Detected HUMAN METAPHNEUMO Not Detected PARAINFLUENZA 1 Not Detected PARAINFLUENZA 2 Not Detected PARAINFLUENZA 3 Not Detected PARAINFLUENZA 4 Not Detected RHINOVIRUS Not Detected RSV A Not Detected RSV B Not Detected Normal [facility] Comment on above: Performed By: #### M 100.638 #### [facility] [address] [place], [address] CBC W/Diff, Automatedon 02-20 Absolute Lymph 3.19 X10 3/uL Normal 0.83-4.51 [facility] Comment on above: Order Comment: 105.1 Performed By: #### M 100.638 #### [facility] [address] [place], [address] Absolute Neut 3.0 X10 3/uL Normal 2.0-7.7 [facility] Comment on above: Order Comment: 105.1 Performed By: #### M 100.638 #### [facility] [address] [place], [address] Basophils/100 WBC (Bld) 1.0 % Normal 0-1 [facility] Comment on above: Order Comment: 105.1 Performed By: #### M 100.638 #### [facility] [address] [place], [address] Eosinophils/100 WBC (Bld) 3.8 % Normal 0-5 [facility] Comment on above: Order Comment: 105.1 Performed By: #### M 100.638 #### [facility] [address] [place], [address] Erythrocyte distribution width (RBC) [Ratio] 13.4 % Normal 11.6-14.6 [facility] Comment on above: Order Comment: 105.1 Performed By: #### M 100.638 #### [facility] [address] [place], [address] Hematocrit (Bld) [Volume fraction] 45.0 % Normal 37-47 [facility] Comment on above: Order Comment: 105.1 Performed By: #### M 100.638 #### [facility] [address] [place], [address] Hemoglobin (Bld) [Mass/Vol] 14.7 g/dL Normal 12.0-15.0 [facility] Comment on above: Order Comment: 105.1 Performed By: #### M 100.638 #### [facility] [address] [place], [address] IG% 0.300 Normal 0.0-0.9 [facility] Comment on above: Order Comment: 105.1 Result Comment: IG% - Immature Granulocytes (promyelocytes, myelocytes and metamyelocytes) > 1% indicates that a LEFT SHIFT is Present. Performed By: #### M 100.638 #### [facility] [address] [place], [address] Lymphocytes/100 WBC (Bld) 45.4 % High 19-41 [facility] Comment on above: Order Comment: 105.1 Performed By: #### M 100.638 #### [facility] [address] [place], [address] MCH (RBC) [Entitic mass] 31.7 pg Normal 27.0-32.0 [facility] Comment on above: Order Comment: 105.1 Performed By: #### M 100.638 #### [facility] [address] [place], [address] MCHC (RBC) [Mass/Vol] 32.7 g/dL Normal 32-36 [facility] Comment on above: Order Comment: 105.1 Performed By: #### M 100.638 #### [facility] [address] [place], [address] MCV (RBC) [Entitic vol] 97.0 fL Normal 81-99 [facility] Comment on above: Order Comment: 105.1 Performed By: #### M 100.638 #### [facility] [address] [place], [address] Monocytes/100 WBC (Bld) 6.8 % Normal 0-10 [facility] Comment on above: Order Comment: 105.1 Performed By: #### M 100.638 #### [facility] [address] [place], [address] Neutrophils/100 WBC (Bld) 42.7 % Low 47-70 [facility] Comment on above: Order Comment: 105.1 Performed By: #### M 100.638 #### [facility] [address] [place], [address] Nucleated RBC (Bld) [#/Vol] 0 10*3/uL Normal 0-5 [facility] Comment on above: Order Comment: 105.1 Performed By: #### M 100.638 #### [facility] [address] [place], [address] Platelet mean volume (Bld) [Entitic vol] 11.9 fL Normal 6.2-12.0 [facility] Comment on above: Order Comment: 105.1 Performed By: #### M 100.638 #### [facility] [address] [place], [address] Platelets (Bld) [#/Vol] 204 10*3/uL Normal 150-450 [facility] Comment on above: Order Comment: 105.1 Performed By: #### M 100.638 #### [facility] [address] [place], [address] RBC (Bld) [#/Vol] 4.64 10*6/uL Normal 4.2-5.4 [facility] Comment on above: Order Comment: 105.1 Performed By: #### M 100.638 #### [facility] [address] [place], [address] RDW SD 47.8 fl High 35.1-43.9 [facility] Comment on above: Order Comment: 105.1 Performed By: #### M 100.638 #### [facility] [address] [place], [address] WBC (Bld) [#/Vol] 7.0 10*3/uL Normal 4.4-11.0 [facility] Comment on above: Order Comment: 105.1 Performed By: #### M 100.638 #### [facility] [address] [place], [address] Comprehensive Metabolic Prof ilon 03-03-2025 Albumin [Mass/Vol] 3.3 g/dL Low 3.4-4.8 [facility] Comment on above: Order Comment: 105.1 Performed By: #### M 100.638 #### [facility] [address] [place], [address] Albumin/Globulin [Mass ratio] 1.1 {ratio} Normal 0.9-2.4 [facility] Comment on above: Order Comment: 105.1 Performed By: #### M 100.638 #### [facility] [address] [place], [address] ALK PHOS 57 U/L Normal 35-104 [facility] Comment on above: Order Comment: 105.1 Performed By: #### M 100.638 #### [facility] [address] [place], [address] ALT [Catalytic activity/Vol] 11 U/L Normal <=34 [facility] Comment on above: Order Comment: 105.1 Performed By: #### M 100.638 #### [facility] [address] [place], [address] AST [Catalytic activity/Vol] 26 U/L Normal <=31 [facility] Comment on above: Order Comment: 105.1 Result Comment: Hemo lysis present, Results??could be affected. ?? Performed By: #### M 100.638 #### [facility] [address] [place], [address] Bilirubin [Mass/Vol] 0.37 mg/dL Normal 0.00-1.30 [facility] Comment on above: Order Comment: 105.1 Performed By: #### M 100.638 #### [facility] [address] [place], [address] BUN/CRE 24.8 RATIO High 10-20 [facility] Comment on above: Order Comment: 105.1 Performed By: #### M 100.638 #### [facility] [address] [place], [address] Calcium [Mass/Vol] 9.0 mg/dL Normal 7.6-11.0 [facility] Comment on above: Order Comment: 105.1 Performed By: #### M 100.638 #### [facility] [address] [place], [address] Chloride [Moles/Vol] 106 mmol/L Normal 98-108 [facility] Comment on above: Order Comment: 105.1 Performed By: #### M 100.638 #### [facility] [address] [place], [address] CO2 [Moles/Vol] 25.7 mmol/L Normal 21.0-32.0 [facility] Comment on above: Order Comment: 105.1 Performed By: #### M 100.638 #### [facility] [address] [place], [address] Creatinine [Mass/Vol] 0.82 mg/dL Normal 0.70-1.20 [facility] Comment on above: Order Comment: 105.1 Performed By: #### M 100.638 #### [facility] [address] [place], [address] GAP 10 Normal 5-15 [facility] Comment on above: Order Comment: 105.1 Performed By: #### M 100.638 #### [facility] [address] [place], [address] GFR/1.73 sq M.predicted among non-blacks MDRD (S/P/Bld) [Vol rate/Area] 72 mL/min/{1.73_m2} Normal >60 [facility] Comment on above: Order Comment: 105.1 Result Comment: mL/m in/1.73m2 CKD-EPI Creatinine Equation (2020) Performed By: #### M 100.638 #### [facility] [address] [place], [address] Globulin (S) [Mass/Vol] 3.0 g/dL Normal 2.2-4.2 [facility] Comment on above: Order Comment: 105.1 Performed By: #### M 100.638 #### [facility] [address] [place], [address] Glucose [Mass/Vol] 82 mg/dL Normal 70-99 [facility] Comment on above: Order Comment: 105.1 Performed By: #### M 100.638 #### [facility] [address] [place], [address] Potassium [Moles/Vol] 4.4 mmol/L Normal 3.3-5.1 [facility] Comment on above: Order Comment: 105.1 Result Comment: Hemo lysis present, Results??could be affected. ?? Performed By: #### M 100.638 #### [facility] [address] [place], [address] Sodium [Moles/Vol] 141 mmol/L Normal 133-145 [facility] Comment on above: Order Comment: 105.1 Performed By: #### M 100.638 #### [facility] [address] [place], [address] T PROT 6.3 g/dL Normal 5.9-8.4 [facility] Comment on above: Order Comment: 105.1 Performed By: #### M 100.638 #### [facility] [address] [place], [address] Urea nitrogen [Mass/Vol] 20 mg/dL High 4-19 [facility] Comment on above: Order Comment: 105.1 Performed By: #### M 100.638 #### [facility] [address] [place], [address] Lipid Profileon 03-03-2025 CHOL:HDL 4.62 Normal [facility] Comment on above: Order Comment: 105.1 Performed By: #### M 100.638 #### [facility] [address] [place], [address] Cholesterol [Mass/Vol] 192 mg/dL Normal <=200 [facility] Comment on above: Order Comment: 105.1 Result Comment: Chol esterol level, Desirable <200 mg/dL Borderline high cholesterol 200-239 mg/dL High cholesterol >=240 mg/dL Recommendations of the NCEP Adult Treatment Panel for the following risk-cutoff thresholds for the [place] population. Performed By: #### M 100.638 #### [facility] [address] [place], [address] Cholesterol in HDL [Mass/Vol] 42 mg/dL Normal [facility] Comment on above: Order Comment: 105.1 Result Comment: Sherie onal Cholesterol Education Program (NCEP) guidelines: <40 mg/dL: Low HDL-cholesterol (major risk factor for CHD) >= 60 mg/dL: High HDL-cholesterol (negative risk factor for CHD) HDL-cholesterol is affected by a number of factors, e.g. smoking, exercise, hormones, sex and age. Performed By: #### M 100.638 #### [facility] [address] [place], [address] Cholesterol in LDL [Mass/Vol] 119 mg/dL Normal [facility] Comment on above: Order Comment: 105.1 Result Comment: Bord axqskh=350-195 mg/dL Higher Zyfj=230 mg/dL or greater Performed By: #### M 100.638 #### [facility] [address] [place], [address] Cholesterol in VLDL [Mass/Vol] 31 mg/dL Normal 5-40 [facility] Comment on above: Order Comment: 105.1 Performed By: #### M 100.638 #### [facility] [address] [place], [address] Triglyceride [Mass/Vol] 155 mg/dL Normal [facility] Comment on above: Order Comment: 105.1 Result Comment: The drugs N-Acetylcysteine and Metamizole may falsely depress this assay. Normal range: <150 mg/dL Borderline High: 150-199 mg/dL High: 200-499 mg/dL Very High: >500 mg/dL Performed By: #### M 100.638 #### [facility] [address] [place], [address] Thyroid Stim Hormone (TSH)on 03-03-2025 TSH 1.250 uIU/mL Normal 0.300-4.200 [facility] Comment on above: Order Comment: 105.1 Performed By: #### M 100.638 #### [facility] [address] [place], [address] Valproic Acid (Depakene) Lev ladonna 02-16-2025 VALPROIC ACID 27 ug/mL Low 50-100 [facility] Comment on above: Order Comment: 105 Result Comment: Valp roic Acid concentrations >100 ug/mL are potentially toxic. Performed By: #### L 506.1001, L501.8100 #### [facility] [address] [place], [place], [address] Vitamin D,25 Hydroxyon 02-16 Vitamin D 25-OH 36.9 ng/mL Normal 30-100 [facility] Comment on above: Order Comment: 105-1 Result Comment: Kerline min D Status Deficiency: <20 ng/mL (50nmol/L) Insufficiency: 20-30 ng/mL (50-75 nmol/L) Sufficiency: 30-100 ng/mL (75-250 nmol/L) Toxicity: >100 ng/mL (>250 nmol/L) Performed By: #### L 506.1001, L501.8100 #### [facility] [address] [place], [place], [address] Absolute neutrophil countOrd ered By: Saurabh Fernandez on 12-09-2024 Neutrophils (Bld) [#/Vol] 3.7 10*3/uL 2.0-7.7 [facility] Anion gap in Serum or Plasma Ordered By: Saurabh Fernandez on 12-09-2024 Anion gap [Moles/Vol] 8 mmol/L 5- [facility] BUN/creatinine ratioOrdered By: Saurabh Fernandez on 12-09-2024 Urea nitrogen/Creatinine [Mass ratio] 21.6 mg/mg High - [facility] Basophil percentageOrdered B y: Saurabh Fernandez on 12-09-2024 Basophils/100 WBC (Bld) 0.9 % 0-1 [facility] Bilirubin, totalOrdered By: Saurabh Fernandez on 12-09-2024 Bilirubin [Mass/Vol] 0.48 mg/dL 0.00-1.30 [facility] CBC W/Diff, Automatedon - Absolute Lymph 3.12 X10 3/uL Normal 0.83-4.51 [facility] Comment on above: Order Comment: 105.1 Performed By: #### L 500.4050, L500.4100, L501.9520, L100.0100 #### [facility] [address] [place], [address] Absolute Neut 3.7 X10 3/uL Normal 2.0-7.7 [facility] Comment on above: Order Comment: 105.1 Performed By: #### L 500.4050, L500.4100, L501.9520, L100.0100 #### [facility] [address] [place], [address] Basophils/100 WBC (Bld) 0.9 % Normal 0-1 [facility] Comment on above: Order Comment: 105.1 Performed By: #### L 500.4050, L500.4100, L501.9520, L100.0100 #### [facility] [address] [place], [address] Eosinophils/100 WBC (Bld) 4.1 % Normal 0-5 [facility] Comment on above: Order Comment: 105.1 Performed By: #### L 500.4050, L500.4100, [id number], L100.0100 #### [facility] [address] [place], [address] Erythrocyte distribution width (RBC) [Ratio] 14.9 % High 11.6-14.6 [facility] Comment on above: Order Comment: 105.1 Performed By: #### L 500.4050, L500.4100, [id number], L100.0100 #### [facility] [address] [place], [address] Hematocrit (Bld) [Volume fraction] 40.3 % Normal 37-47 [facility] Comment on above: Order Comment: 105.1 Performed By: #### L 500.4050, L500.4100, [id number], L100.0100 #### [facility] [address] [place], [address] Hemoglobin (Bld) [Mass/Vol] 13.1 g/dL Normal 12.0-15.0 [facility] Comment on above: Order Comment: 105.1 Performed By: #### L 500.4050, L500.4100, L501.9520, L100.0100 #### [facility] [address] [place], [address] IG% 0.400 Normal 0.0-0.9 [facility] Comment on above: Order Comment: 105.1 Result Comment: IG% - Immature Granulocytes (promyelocytes, myelocytes and metamyelocytes) > 1% indicates that a LEFT SHIFT is Present. Performed By: #### L 500.4050, L500.4100, L501.9520, L100.0100 #### [facility] [address] [place], [address] Lymphocytes/100 WBC (Bld) 39.9 % Normal 19-41 [facility] Comment on above: Order Comment: 105.1 Performed By: #### L 500.4050, L500.4100, [id number], L100.0100 #### [facility] [address] [place], [address] MCH (RBC) [Entitic mass] 32.1 pg High 27.0-32.0 [facility] Comment on above: Order Comment: 105.1 Performed By: #### L 500.4050, L500.4100, [id number], L100.0100 #### [facility] [address] [place], [address] MCHC (RBC) [Mass/Vol] 32.5 g/dL Normal 32-36 [facility] Comment on above: Order Comment: 105.1 Performed By: #### L 500.4050, L500.4100, [id number], L100.0100 #### [facility] [address] [place], [address] MCV (RBC) [Entitic vol] 98.8 fL Normal 81-99 [facility] Comment on above: Order Comment: 105.1 Performed By: #### L 500.4050, L500.4100, [id number], L100.0100 #### [facility] [address] [place], [address] Monocytes/100 WBC (Bld) 7.0 % Normal 0-10 [facility] Comment on above: Order Comment: 105.1 Performed By: #### L 500.4050, L500.4100, [id number], L100.0100 #### [facility] [address] [place], [address] Neutrophils/100 WBC (Bld) 47.7 % Normal 47-70 [facility] Comment on above: Order Comment: 105.1 Performed By: #### L 500.4050, L500.4100, [id number], L100.0100 #### [facility] [address] [place], [address] Nucleated RBC (Bld) [#/Vol] 0 10*3/uL Normal 0-5 [facility] Comment on above: Order Comment: 105.1 Performed By: #### L 500.4050, L500.4100, [id number], L100.0100 #### [facility] [address] [place], [address] Platelet mean volume (Bld) [Entitic vol] 11.4 fL Normal 6.2-12.0 [facility] Comment on above: Order Comment: 105.1 Performed By: #### L 500.4050, L500.4100, [id number], L100.0100 #### [facility] [address] [place], [address] Platelets (Bld) [#/Vol] 160 10*3/uL Normal 150-450 [facility] Comment on above: Order Comment: 105.1 Performed By: #### L 500.4050, L500.4100, [id number], L100.0100 #### [facility] [address] [place], [address] RBC (Bld) [#/Vol] 4.08 10*6/uL Low 4.2-5.4 [facility] Comment on above: Order Comment: 105.1 Performed By: #### L 500.4050, L500.4100, [id number], L100.0100 #### [facility] [address] [place], [address] RDW SD 54.3 fl High 35.1-43.9 [facility] Comment on above: Order Comment: 105.1 Performed By: #### L 500.4050, L500.4100, [id number], L100.0100 #### [facility] [address] [place], [address] WBC (Bld) [#/Vol] 7.8 10*3/uL Normal 4.4-11.0 [facility] Comment on above: Order Comment: 105.1 Performed By: #### L 500.4050, L500.4100, L501.9520, L100.0100 #### [facility] [address] [place], [address] Calculated very low density lipoprotein (VLDL) cholesterol measurementOrdered By: Saurabh Fernandez on 12-09-2024 VLDL Cholesterol 36 mg/dL 5-40 [facility] Carbon dioxide, total [Moles /volume] in Central venous bloodOrdered By: Saurabh Fernandez on 12-09-2024 CO2 [Moles/Vol] 28.8 mmol/L 21.0-32.0 [facility] Chloride assayOrdered By: Nieto on 12-09-2024 Chloride [Moles/Vol] 106 mmol/L 98-108 [facility] Comprehensive Metabolic Prof ilon 12-09-2024 Albumin [Mass/Vol] 3.3 g/dL Low 3.4-4.8 [facility] Comment on above: Order Comment: 105.1 Performed By: #### L 500.4050, L500.4100, L501.9520, L100.0100 #### [facility] [address] [place], [address] Albumin/Globulin [Mass ratio] 1.1 {ratio} Normal 0.9-2.4 [facility] Comment on above: Order Comment: 105.1 Performed By: #### L 500.4050, L500.4100, L501.9520, L100.0100 #### [facility] [address] [place], [address] ALK PHOS 62 U/L Normal 35-104 [facility] Comment on above: Order Comment: 105.1 Performed By: #### L 500.4050, L500.4100, [id number], L100.0100 #### [facility] [address] [place], [address] ALT [Catalytic activity/Vol] 11 U/L Normal <=34 [facility] Comment on above: Order Comment: 105.1 Performed By: #### L 500.4050, L500.4100, L501.9520, L100.0100 #### [facility] [address] [place], [address] AST [Catalytic activity/Vol] 17 U/L Normal <=31 [facility] Comment on above: Order Comment: 105.1 Performed By: #### L 500.4050, L500.4100, L501.9520, L100.0100 #### [facility] [address] [place], [address] Bilirubin [Mass/Vol] 0.48 mg/dL Normal 0.00-1.30 [facility] Comment on above: Order Comment: 105.1 Performed By: #### L 500.4050, L500.4100, [id number], L100.0100 #### [facility] [address] [place], [address] BUN/CRE 21.6 RATIO High 10-20 [facility] Comment on above: Order Comment: 105.1 Performed By: #### L 500.4050, L500.4100, L501.9520, L100.0100 #### [facility] [address] [place], [address] Calcium [Mass/Vol] 8.9 mg/dL Normal 7.6-11.0 [facility] Comment on above: Order Comment: 105.1 Performed By: #### L 500.4050, L500.4100, L501.9520, L100.0100 #### [facility] [address] [place], [address] Chloride [Moles/Vol] 106 mmol/L Normal 98-108 [facility] Comment on above: Order Comment: 105.1 Performed By: #### L 500.4050, L500.4100, L501.9520, L100.0100 #### [facility] [address] [place], [address] CO2 [Moles/Vol] 28.8 mmol/L Normal 21.0-32.0 [facility] Comment on above: Order Comment: 105.1 Performed By: #### L 500.4050, L500.4100, L501.9520, L100.0100 #### [facility] [address] [place], [address] Creatinine [Mass/Vol] 0.73 mg/dL Normal 0.70-1.20 [facility] Comment on above: Order Comment: 105.1 Performed By: #### L 500.4050, L500.4100, L501.9520, L100.0100 #### [facility] [address] [place], [address] GAP 8 Normal 5-15 [facility] Comment on above: Order Comment: 105.1 Performed By: #### L 500.4050, L500.4100, L501.9520, L100.0100 #### [facility] [address] [place], [address] GFR/1.73 sq M.predicted among non-blacks MDRD (S/P/Bld) [Vol rate/Area] 82 mL/min/{1.73_m2} Normal >60 [facility] Comment on above: Order Comment: 105.1 Result Comment: mL/m in/1.73m2 CKD-EPI Creatinine Equation (2020) Performed By: #### L 500.4050, L500.4100, L501.9520, L100.0100 #### [facility] [address] [place], [address] Globulin (S) [Mass/Vol] 3.0 g/dL Normal 2.2-4.2 [facility] Comment on above: Order Comment: 105.1 Performed By: #### L 500.4050, L500.4100, L501.9520, L100.0100 #### [facility] [address] [place], [address] Glucose [Mass/Vol] 85 mg/dL Normal 70-99 [facility] Comment on above: Order Comment: 105.1 Performed By: #### L 500.4050, L500.4100, L501.9520, L100.0100 #### [facility] [address] [place], [address] Potassium [Moles/Vol] 4.4 mmol/L Normal 3.3-5.1 [facility] Comment on above: Order Comment: 105.1 Performed By: #### L 500.4050, L500.4100, L501.9520, L100.0100 #### [facility] [address] [place], [address] Sodium [Moles/Vol] 142 mmol/L Normal 133-145 [facility] Comment on above: Order Comment: 105.1 Performed By: #### L 500.4050, L500.4100, L501.9520, L100.0100 #### [facility] [address] [place], [address] T PROT 6.3 g/dL Normal 5.9-8.4 [facility] Comment on above: Order Comment: 105.1 Performed By: #### L 500.4050, L500.4100, L501.9520, L100.0100 #### [facility] [address] [place], [address] Urea nitrogen [Mass/Vol] 16 mg/dL Normal 4-19 [facility] Comment on above: Order Comment: 105.1 Performed By: #### L 500.4050, L500.4100, L501.9520, L100.0100 #### [facility] [address] [place], [address] Eosinophil percentageOrdered By: Saurabh Fernandez on 12-09-2024 Eosinophils/100 WBC (Bld) 4.1 % 0-5 [facility] Erythrocyte distribution wid th (RBC) [Ratio]Ordered By: Saurabh Fernandez on 12-09-2024 Erythrocyte distribution width (RBC) [Entitic vol] 54.3 fL High 35.1-43.9 [facility] Erythrocyte distribution wid th ratioOrdered By: Saurabh Fernandez on 12-09-2024 Erythrocyte distribution width (RBC) [Ratio] 14.9 % High 11.6-14.6 [facility] GFR/1.73 sq M.predicted layne g non-blacks MDRD (S/P/Bld) [Vol rate/Area]Ordered By: Saurabh Fernandez on 12-09-2024 Estimated GFR (MDRD) Non-Af Amer 82 >60 [facility] Comment on above: mL/min/1.73m2 CKD-EP I Creatinine Equation (2020) Hematocrit Auto (Bld) [Volum e fraction]Ordered By: Saurabh Fernandez on 12-09-2024 Hematocrit (Bld) [Volume fraction] 40.3 % 37-47 [facility] Hemoglobin measurementOrdere d By: Saurabh Fernandez on 12-09-2024 Hemoglobin (Bld) [Mass/Vol] 13.1 g/dL 12.0-15.0 [facility] Immature granulocytes/100 WB C Auto (Bld)Ordered By: Saurabh Fernandez on 12-09-2024 Immature granulocytes/100 WBC (Bld) 0.400 % 0.0-0.9 [facility] Comment on above: IG% - Immature Granu locytes (promyelocytes, myelocytes and metamyelocytes) > 1% indicates that a LEFT SHIFT is Present. LDL calc ser/plasOrdered By: Saurabh Fernandez on 12-09-2024 LDL Cholesterol, Calculated 120 mg/dL [facility] Comment on above: Dltlpkqcrr=240-683 m g/dL & Higher Flcs=376 mg/dL or greater Laboratory - Chemistry and C hemistry - challengeOrdered By: Saurabh Fernandez on 12-09-2024 AST [Catalytic activity/Vol] 17 U/L <32 [facility] Lipid Profileon 12-09-2024 CHOL:HDL 4.34 Normal [facility] Comment on above: Order Comment: 105.1 Performed By: #### L 500.4050, L500.4100, L501.9520, L100.0100 #### [facility] [address] [facility] [place], [address] Cholesterol [Mass/Vol] 203 mg/dL High <=200 [facility] Comment on above: Order Comment: 105.1 Result Comment: Chol esterol level, Desirable <200 mg/dL Borderline high cholesterol 200-239 mg/dL High cholesterol >=240 mg/dL Recommendations of the NCEP Adult Treatment Panel for the following risk-cutoff thresholds for the [place] population. Performed By: #### L 500.4050, L500.4100, L501.9520, L100.0100 #### [facility] [address] [place], [address] Cholesterol in HDL [Mass/Vol] 47 mg/dL Normal [facility] Comment on above: Order Comment: 105.1 Result Comment: Sherie onal Cholesterol Education Program (NCEP) guidelines: <40 mg/dL: Low HDL-cholesterol (major risk factor for CHD) >= 60 mg/dL: High HDL-cholesterol (negative risk factor for CHD) HDL-cholesterol is affected by a number of factors, e.g. smoking, exercise, hormones, sex and age. Performed By: #### L 500.4050, L500.4100, L501.9520, L100.0100 #### [facility] [address] [place], [address] Cholesterol in LDL [Mass/Vol] 120 mg/dL Normal [facility] Comment on above: Order Comment: 105.1 Result Comment: Bord erodlq=226-896 mg/dL Higher Wdth=636 mg/dL or greater Performed By: #### L 500.4050, L500.4100, L501.9520, L100.0100 #### [facility] [address] [place], [address] Cholesterol in VLDL [Mass/Vol] 36 mg/dL Normal 5-40 [facility] Comment on above: Order Comment: 105.1 Performed By: #### L 500.4050, L500.4100, L501.9520, L100.0100 #### [facility] [address] [place], [address] Triglyceride [Mass/Vol] 180 mg/dL Normal [facility] Comment on above: Order Comment: 105.1 Result Comment: The drugs N-Acetylcysteine and Metamizole may falsely depress this assay. Normal range: <150 mg/dL Borderline High: 150-199 mg/dL High: 200-499 mg/dL Very High: >500 mg/dL Performed By: #### L 500.4050, L500.4100, L501.9520, L100.0100 #### [facility] [address] [place], [address] Lymphocytes Auto (Unsp spec) [#/Vol]Ordered By: Saurabh Fernandez on 12-09-2024 Lymphocytes (Bld) [#/Vol] 3.12 10*3/uL 0.83-4.51 [facility] Lymphocytes/100 WBC Auto (Un sp spec)Ordered By: Saurabh Fernandez on 12-09-2024 Lymphocytes/100 WBC (Bld) 39.9 % 19-41 [facility] MCV (mean corpuscular volume ) determinationOrdered By: Saurabh Fernandez on 12-09-2024 MCV (RBC) [Entitic vol] 98.8 fL 81-99 [facility] Mean corpuscular hemoglobin (MCH) determinationOrdered By: Saurabh Fernandez on 12-09-2024 MCH (RBC) [Entitic mass] 32.1 pg High 27.0-32.0 [facility] Mean corpuscular hemoglobin concentration (MCHC) determinationOrdered By: Saurabh Fernandez on 12-09-2024 MCHC (RBC) [Mass/Vol] 32.5 g/dL 32-36 [facility] Mean platelet volume determi nationOrdered By: Saurabh Fernandez on 12-09-2024 Platelet mean volume (Bld) [Entitic vol] 11.4 fL 6.2-12.0 [facility] Monocyte percentageOrdered B y: Saurabh Fernandez on 12-09-2024 Monocytes/100 WBC (Bld) 7.0 % 0-10 [facility] Neutrophil percentageOrdered By: Sauarbh Fernandez on 12-09-2024 Neutrophils/100 WBC (Bld) 47.7 % 47-70 [facility] Nucleated red blood cell per centageOrdered By: Saurabh Fernandez on 12-09-2024 Nucleated RBC/100 WBC (Bld) [Ratio] 0 % 0-5 [facility] Platelet countOrdered By: Nieto on 12-09-2024 Platelets (Bld) [#/Vol] 160 10*3/uL 150-450 [facility] Potassium (Unsp spec) [Mass/ Vol]Ordered By: Saurabh Fernandez on 12-09-2024 Potassium [Moles/Vol] 4.4 mmol/L 3.3-5.1 [facility] RBC Auto (Bld) [#/Vol]Ordere d By: Saurabh Fernandez on 12-09-2024 RBC (Bld) [#/Vol] 4.08 10*6/uL Low 4.2-5.4 [facility] Screening total cholesterol/ high density lipoprotein (HDL) cholesterol ratioOrdered By: Saurabh Fernandez on 12-09-2024 Cholesterol.total/Chol esterol in HDL [Mass ratio] 4.34 {ratio} [facility] Serum creatinine measurement (mass/volume)Ordered By: Saurabh Fernandez on 12-09-2024 Creatinine [Mass/Vol] 0.73 mg/dL 0.70-1.20 [facility] Serum globulin measurementOr dered By: Saurabh Fernandez on 12-09-2024 Globulin (S) [Mass/Vol] 3.0 g/dL 2.2-4.2 [facility] Serum glucose measurement (m ass/volume)Ordered By: Saurabh Fernandez on 12-09-2024 Glucose [Mass/Vol] 85 mg/dL 70-99 [facility] Serum or plasma alanine macedo otransferase (ALT) measurementOrdered By: Saurabh Fernandez on 12-09-2024 ALT [Catalytic activity/Vol] 11 U/L <35 [facility] Serum or plasma albumin tyrese urement (mass/volume)Ordered By: Saurabh Fernandez on 12-09-2024 Albumin [Mass/Vol] 3.3 g/dL Low 3.4-4.8 [facility] Serum or plasma albumin/glob ulin mass ratioOrdered By: Saurabh Fernandez on 12-09-2024 Albumin/Globulin [Mass ratio] 1.1 {ratio} 0.9-2.4 [facility] Serum or plasma alkaline elia sphatase measurementOrdered By: Saurabh Fernandez on 12-09-2024 ALP [Catalytic activity/Vol] 62 U/L 35-104 [facility] Serum or plasma calcium tyrese urement (mass/volume)Ordered By: Saurabh Fernandez on 12-09-2024 Calcium [Mass/Vol] 8.9 mg/dL 7.6-11.0 [facility] Serum or plasma cholesterol in HDL measurement (mass/volume)Ordered By: Saurabh Fernandez on 12-09-2024 Cholesterol in HDL [Mass/Vol] 47 mg/dL >40 [facility] Comment on above: National Cholesterol Education Program (NCEP) guidelines:<40 mg/dL: Low HDL-cholesterol (major risk factor for CHD)>= 60 mg/dL: High HDL-cholesterol (negative risk factor for CHD)HDL-cholesterol is affected by a number of factors, e.g. smoking, exercise, hormones, sex and age. Serum or plasma cholesterol measurement (mass/volume)Ordered By: Saurabh Fernandez on 12-09-2024 Cholesterol [Mass/Vol] 203 mg/dL High <201 [facility] Comment on above: Cholesterol level, D esirable <200 mg/dLBorderline high cholesterol 200-239 mg/dLHigh cholesterol >=240 mg/dLRecommendations of the NCEP Adult Treatment Panel for the following risk-cutoff thresholds for the [place] population. Serum or plasma urea nitroge n measurement (mass/volume)Ordered By: Saurabh Fernandez on 12-09-2024 Urea nitrogen [Mass/Vol] 16 mg/dL 4-19 [facility] Sodium levelOrdered By: Saurabh Fernandez on 12-09-2024 Sodium [Moles/Vol] 142 mmol/L 133-145 [facility] TSH DL <= 0.005 mIU/L QnOrde red By: Saurabh Fernandez on 12-09-2024 Thyroid Stimulating Hormone (TSH) 2.930 uIU/mL 0.300-4.200 [facility] Thyroid Stim Hormone (TSH)on 12-09-2024 TSH 2.930 uIU/mL Normal 0.300-4.200 [facility] Comment on above: Order Comment: 105.1 Performed By: #### L 500.4050, L500.4100, L501.9520, L100.0100 #### [facility] [address] [place], [address] Total proteinOrdered By: Ambreen Fernandez on 12-09-2024 Protein [Mass/Vol] 6.3 g/dL 5.9-8.4 [facility] Triglycerides measurementOrd ered By: Saurabh Fernandez on 12-09-2024 Triglyceride [Mass/Vol] 180 mg/dL <199 [facility] Comment on above: The drugs N-Acetylcy steine and Metamizole may falsely depress this assay. Normal range: <150 mg/dLBorderline High: 150-199 mg/dLHigh: 200-499 mg/dLVery High: >500 mg/dL White blood cell (WBC) count Ordered By: Saurabh Fernandez on 12-09-2024 WBC (Bld) [#/Vol] 7.8 10*3/uL 4.4-11.0 [facility] L506.1001on 11-22-2024 Vitamin D 25-OH 45.2 ng/mL Normal 30-100 [facility] Comment on above: Order Comment: 105.1 Result Comment: Kerline min D Status Deficiency: <20 ng/mL (50nmol/L) Insufficiency: 20-30 ng/mL (50-75 nmol/L) Sufficiency: 30-100 ng/mL (75-250 nmol/L) Toxicity: >100 ng/mL (>250 nmol/L) Performed By: #### M 100.638 #### [facility] [address] [place], [place], [address] Valproate [Mass/Vol]Ordered By: Saurabh Fernandez on 11-22-2024 Valproic Acid (Depakene) Level 20 ug/mL Low 50-100 [facility] Comment on above: Valproic Acid concen trations >100 ug/mL are potentially toxic. Valproic Acid (Depakene) Lev ladonna 11-22-2024 VALPROIC ACID 20 ug/mL Low 50-100 [facility] Comment on above: Order Comment: 105.1 Result Comment: Valp roic Acid concentrations >100 ug/mL are potentially toxic. Performed By: #### M 100.638 #### [facility] [address] [place], [place], [id number] Vitamin D, 25-hydroxyOrdered By: Saurabh Fernandez on 11-22-2024 Vitamin D 25-Hydroxy 45.2 ng/mL 30-100 [facility] Comment on above: Vitamin D StatusDefi ciency: <20 ng/mL (50nmol/L)Insufficiency: 20-30 ng/mL (50-75 nmol/L)Sufficiency: 30-100 ng/mL (75-250 nmol/L)Toxicity: >100 ng/mL (>250 nmol/L) BUN/creatinine ratioOrdered By: Saurabh Fernandez on 11-17-2024 Urea nitrogen/Creatinine [Mass ratio] 27.0 mg/mg High [facility]20 [facility] Basic Metabolic Profile (BMP )on 11-17-2024 BUN/CRE 27.0 RATIO High [facility] Comment on above: Order Comment: 105-1 Performed By: #### M 100.638 #### [facility] [address] [place], [address] GFR/1.73 sq M.predicted among non-blacks MDRD (S/P/Bld) [Vol rate/Area] 78 mL/min/{1.73_m2} Normal >60 [facility] Comment on above: Order Comment: 105-1 Result Comment: mL/m in/1.73m2 CKD-EPI Creatinine Equation (2020) Performed By: #### M 100.638 #### [facility] [address] [place], [place], [id number] Carbon dioxide measurementOr dered By: Saurabh Fernandez on 11-17-2024 CO2 [Moles/Vol] 25.7 mmol/L Normal 22.0-29.0 [facility] Comment on above: Order Comment: 105-1 Performed By: #### M 100.638 #### [facility] [address] [place], [address] Chloride measurementOrdered By: Saurabh Fernandez on 11-17-2024 Chloride [Moles/Vol] 107 mmol/L Normal 96-108 [facility] Comment on above: Order Comment: 105-1 Performed By: #### M 100.638 #### [facility] [address] [place], [address] GFR/1.73 sq M.predicted layne g non-blacks MDRD (S/P/Bld) [Vol rate/Area]Ordered By: Saurabh Fernandez on 11-17-2024 Estimated GFR (MDRD) Non-Af Amer 78 >60 [facility] Comment on above: mL/min/1.73m2 CKD-EP I Creatinine Equation (2020) Serum glucose measurement (m ass/volume)Ordered By: Saurabh Fernnadez on 11-17-2024 Glucose [Mass/Vol] 83 mg/dL Normal 70-99 [facility] Comment on above: Order Comment: 105-1 Performed By: #### M 100.638 #### [facility] [address] [place], [address] Serum or plasma anion gap de termination (moles/volume)Ordered By: Saurabh Fernandez on 11-17-2024 Anion gap [Moles/Vol] 9 mmol/L Normal 5-15 [facility] Comment on above: Order Comment: 105-1 Performed By: #### M 100.638 #### [facility] [address] [place], [address] Serum or plasma calcium tyrese urement (mass/volume)Ordered By: Saurabh Fernandez on 11-17-2024 Calcium [Mass/Vol] 8.4 mg/dL Normal 7.6-11.0 [facility] Comment on above: Order Comment: 105-1 Performed By: #### M 100.638 #### [facility] [address] [place], [address] Serum or plasma creatinine m easurement (moles/volume)Ordered By: Saurabh Fernandez on 11-17-2024 Creatinine [Mass/Vol] 0.8 mg/dL Normal 0.6-1.0 [facility] Comment on above: Order Comment: 105-1 Performed By: #### M 100.638 #### [facility] [address] [place], [address] Serum or plasma potassium me asurementOrdered By: Saurabh Fernandez on 11-17-2024 Potassium [Moles/Vol] 4.5 mmol/L Normal 3.3-5.1 [facility] Comment on above: Hemolysis present, R esults could be affected. Order Comment: 105-1 Result Comment: Hemo lysis present, Results??could be affected. ?? Performed By: #### M 100.638 #### [facility] [address] [place], [address] Serum or plasma sodium measu rement (moles/volume)Ordered By: Saurabh Fernandez on 11-17-2024 Sodium [Moles/Vol] 141 mmol/L Normal 133-145 [facility] Comment on above: Order Comment: 105-1 Performed By: #### M 100.638 #### [facility] [address] [place], [address] Serum or plasma urea nitroge n measurement (mass/volume)Ordered By: Saurabh Fernandez on 11-17-2024 Urea nitrogen [Mass/Vol] 21 mg/dL High 4-19 [facility] Comment on above: Order Comment: 105-1 Performed By: #### M 100.638 #### [facility] [address] [place], [address] Basic Metabolic Profile (BMP )on 11-10-2024 BUN/CRE 27.0 RATIO High 10-20 [facility] Comment on above: Order Comment: 105.1 Performed By: #### L 500.2500, L100.0500 #### [facility] [address] [place], [address] CA,Total 8.7 mg/dL Normal 8.5-10.1 [facility] Comment on above: Order Comment: 105.1 Performed By: #### L 500.2500, L100.0500 #### [facility] [address] [place], [address] Chloride [Moles/Vol] 118 mmol/L High 98-107 [facility] Comment on above: Order Comment: 105.1 Performed By: #### L 500.2500, L100.0500 #### [facility] [address] [place], [address] CO2 [Moles/Vol] 31.0 mmol/L Normal 21.0-32.0 [facility] Comment on above: Order Comment: 105.1 Performed By: #### L 500.2500, L100.0500 #### [facility] [address] [place], [address] Creatinine [Mass/Vol] 0.81 mg/dL Normal 0.55-1.02 [facility] Comment on above: Order Comment: 105.1 Result Comment: The validity of the calculated GFR GFRAA in patients over 70 years has not been determined. Clinical correlation is essential. Performed By: #### L 500.2500, L100.0500 #### [facility] [address] [place], [address] EST GFR - AA 87 mL/min Normal >60 [facility] Comment on above: Order Comment: 105.1 Result Comment: Afri can [place] GFR Calc Performed By: #### L 500.2500, L100.0500 #### [facility] [address] [place], [address] GAP 2 Low 5-15 [facility] Comment on above: Order Comment: 105.1 Performed By: #### L 500.2500, L100.0500 #### [facility] [address] [place], [address] GFR/1.73 sq M.predicted among non-blacks MDRD (S/P/Bld) [Vol rate/Area] 72 mL/min/{1.73_m2} Normal >60 [facility] Comment on above: Order Comment: 105.1 Result Comment: Non- GFR Calc Performed By: #### L 500.2500, L100.0500 #### [facility] [address] [place], [address] Glucose [Mass/Vol] 96 mg/dL Normal 74-106 [facility] Comment on above: Order Comment: 105.1 Performed By: #### L 500.2500, L100.0500 #### [facility] [address] [place], [address] Potassium [Moles/Vol] 3.9 mmol/L Normal 3.5-5.1 [facility] Comment on above: Order Comment: 105.1 Performed By: #### L 500.2500, L100.0500 #### [facility] [address] [place], [address] Sodium [Moles/Vol] 151 mmol/L High 136-145 [facility] Comment on above: Order Comment: 105.1 Performed By: #### L 500.2500, L100.0500 #### [facility] [address] [place], [address] Urea nitrogen [Mass/Vol] 22 mg/dL High 7-18 [facility] Comment on above: Order Comment: 105.1 Performed By: #### L 500.2500, L100.0500 #### [facility] [address] [place], [address] Blood urea nitrogen (BUN)/cr eatinine ratioOrdered By: Saurabh Fernandez on 11-10-2024 Urea nitrogen/Creatinine [Mass ratio] 27.0 mg/mg High 10-20 [facility] CBC-Complete Blood Cnt No Di ffon 11-10-2024 Erythrocyte distribution width (RBC) [Ratio] 14.4 % Normal 11.6-14.6 [facility] Comment on above: Order Comment: 105.1 Performed By: #### L 500.2500, L100.0500 #### [facility] [address] [place], [address] Hematocrit (Bld) [Volume fraction] 41.3 % Normal 37-47 [facility] Comment on above: Order Comment: 105.1 Performed By: #### L 500.2500, L100.0500 #### [facility] [address] [place], [address] Hemoglobin (Bld) [Mass/Vol] 12.5 g/dL Normal 12.0-15.0 [facility] Comment on above: Order Comment: 105.1 Performed By: #### L 500.2500, L100.0500 #### [facility] [address] [place], [address] MCH (RBC) [Entitic mass] 30.9 pg Normal 27.0-32.0 [facility] Comment on above: Order Comment: 105.1 Performed By: #### L 500.2500, L100.0500 #### [facility] [address] [place], [address] MCHC (RBC) [Mass/Vol] 30.3 g/dL Low 32-36 [facility] Comment on above: Order Comment: 105.1 Performed By: #### L 500.2500, L100.0500 #### [facility] [address] [place], [address] MCV (RBC) [Entitic vol] 102.0 fL High 81-99 [facility] Comment on above: Order Comment: 105.1 Performed By: #### L 500.2500, L100.0500 #### [facility] [address] [place], [address] Platelet mean volume (Bld) [Entitic vol] 10.0 fL Normal 6.2-12.0 [facility] Comment on above: Order Comment: 105.1 Performed By: #### L 500.2500, L100.0500 #### [facility] [address] [place], [address] Platelets (Bld) [#/Vol] 351 10*3/uL Normal 150-450 [facility] Comment on above: Order Comment: 105.1 Performed By: #### L 500.2500, L100.0500 #### [facility] [address] [place], [address] RBC (Bld) [#/Vol] 4.05 10*6/uL Low 4.2-5.4 [facility] Comment on above: Order Comment: 105.1 Performed By: #### L 500.2500, L100.0500 #### [facility] [address] [place], [address] RDW SD 53.7 fl High 35.1-43.9 [facility] Comment on above: Order Comment: 105.1 Performed By: #### L 500.2500, L100.0500 #### [facility] [address] [place], [address] WBC (Bld) [#/Vol] 8.5 10*3/uL Normal 4.4-11.0 [facility] Comment on above: Order Comment: 105.1 Performed By: #### L 500.2500, L100.0500 #### [facility] [address] [place], [address] Carbon dioxide measurementOr dered By: Saurabh Fernandez on 11-10-2024 CO2 [Moles/Vol] 31.0 mmol/L 21.0-32.0 [facility] Chloride measurementOrdered By: Saurabh Fernandez on 11-10-2024 Chloride [Moles/Vol] 118 mmol/L High 98-107 [facility] Erythrocyte distribution wid th (RBC) [Ratio]Ordered By: Saurabh Fernandez on 11-10-2024 Erythrocyte distribution width (RBC) [Entitic vol] 53.7 fL High 35.1-43.9 [facility] Erythrocyte distribution wid th ratioOrdered By: Saurabh Fernandez on 11-10-2024 Erythrocyte distribution width (RBC) [Ratio] 14.4 % 11.6-14.6 [facility] Estimated glomerular filtrat ion rate (GFR) AmericanOrdered By: Saurabh Fernandez on 11-10-2024 Estimated GFR (MDRD) Amer 87 mL/min >60 [facility] Comment on above: GFR Calc Glomerular filtration rate ( GFR) estimationOrdered By: Saurabh Fernandez on 11-10-2024 Estimated GFR (MDRD) Non-Af Amer 72 mL/min >60 [facility] Comment on above: Non- GFR Calc Glucose measurementOrdered B y: Saurabh Fernandez on 11-10-2024 Glucose [Mass/Vol] 96 mg/dL 74-106 [facility] Hematocrit Auto (Bld) [Volum e fraction]Ordered By: Saurabh Fernandez on 11-10-2024 Hematocrit (Bld) [Volume fraction] 41.3 % 37-47 [facility] Hemoglobin measurementOrdere d By: Saurabh Fernandez on 11-10-2024 Hemoglobin (Bld) [Mass/Vol] 12.5 g/dL 12.0-15.0 [facility] MCV (mean corpuscular volume ) determinationOrdered By: Saurabh Fernandez on 11-10-2024 MCV (RBC) [Entitic vol] 102.0 fL High 81-99 [facility] Mean corpuscular hemoglobin (MCH) determinationOrdered By: Saurabh Fernandez on 11-10-2024 MCH (RBC) [Entitic mass] 30.9 pg 27.0-32.0 [facility] Mean corpuscular hemoglobin concentration (MCHC) determinationOrdered By: Saurabh Fernandez on 11-10-2024 MCHC (RBC) [Mass/Vol] 30.3 g/dL Low 32-36 [facility] Mean platelet volume determi nationOrdered By: Saurabh Fernandez on 11-10-2024 Platelet mean volume (Bld) [Entitic vol] 10.0 fL 6.2-12.0 [facility] Platelet countOrdered By: Nieto on 11-10-2024 Platelets (Bld) [#/Vol] 351 10*3/uL 150-450 [facility] Potassium measurementOrdered By: Saurabh Fernandez on 11-10-2024 Potassium [Moles/Vol] 3.9 mmol/L 3.5-5.1 [facility] RBC Auto (Bld) [#/Vol]Ordere d By: Saurabh Fernandez on 11-10-2024 RBC (Bld) [#/Vol] 4.05 10*6/uL Low 4.2-5.4 [facility] Serum anion gap measurementO rdered By: Saurabh Fernandez on 11-10-2024 Anion gap [Moles/Vol] 2 mmol/L Low 5-15 [facility] Serum or plasma calcium tyrese urement (mass/volume)Ordered By: Saurabh Fernandez on 11-10-2024 Calcium [Mass/Vol] 8.7 mg/dL 8.5-10.1 [facility] Serum or plasma creatinine m easurement (mass/volume)Ordered By: Saurabh Fernandez on 11-10-2024 Creatinine [Mass/Vol] 0.81 mg/dL 0.55-1.02 [facility] Comment on above: The validity of the calculated GFR & GFRAA in patients over 70 years has not been determined. Clinical correlation is essential. Serum or plasma urea nitroge n measurement (mass/volume)Ordered By: Saurabh Fernandez on 11-10-2024 Urea nitrogen [Mass/Vol] 22 mg/dL High 7-18 [facility] Sodium levelOrdered By: Saurabh Fernandez on 11-10-2024 Sodium [Moles/Vol] 151 mmol/L High 136-145 [facility] White blood cell (WBC) count Ordered By: Saurabh Fernandez on 11-10-2024 WBC (Bld) [#/Vol] 8.5 10*3/uL 4.4-11.0 [facility] Absolute neutrophil countOrd ered By: Saurabh Fernandez on 09-16-2024 Neutrophils (Bld) [#/Vol] 3.3 10*3/uL 2.0-7.7 [facility] Albumin to globulin ratioOrd ered By: Saurabh Fernandez on 09-16-2024 Albumin/Globulin [Mass ratio] 0.7 {ratio} Low 0.9-2.4 [facility] Basophil percentageOrdered B y: Saurabh Fernandez on 09-16-2024 Basophils/100 WBC (Bld) 1.0 % 0-1 [facility] Bilirubin, totalOrdered By: Saurabh Fernandez on 09-16-2024 Bilirubin [Mass/Vol] 0.50 mg/dL 0.20-1.00 [facility] Comment on above: For patients on eltr ombopag therapy, use of Dimension [place] TBIL is not recommended. Blood urea nitrogen (BUN)/cr eatinine ratioOrdered By: Saurabh Fernandez on 09-16-2024 Urea nitrogen/Creatinine [Mass ratio] 30.8 mg/mg High 10-20 [facility] CBC W/Diff, Automatedon 08-23 Absolute Lymph 3.46 X10 3/uL Normal 0.83-4.51 [facility] Comment on above: Order Comment: 105.1 Performed By: #### L 500.2500, L100.0500 #### [facility] [address] [place], [address] Absolute Neut 3.3 X10 3/uL Normal 2.0-7.7 [facility] Comment on above: Order Comment: 105.1 Performed By: #### L 500.2500, L100.0500 #### [facility] [address] [place], [address] Basophils/100 WBC (Bld) 1.0 % Normal 0-1 [facility] Comment on above: Order Comment: 105.1 Performed By: #### L 500.2500, L100.0500 #### [facility] [address] [place], [address] Eosinophils/100 WBC (Bld) 4.6 % Normal 0-5 [facility] Comment on above: Order Comment: 105.1 Performed By: #### L 500.2500, L100.0500 #### [facility] [address] [place], [address] Erythrocyte distribution width (RBC) [Ratio] 13.3 % Normal 11.6-14.6 [facility] Comment on above: Order Comment: 105.1 Performed By: #### L 500.2500, L100.0500 #### [facility] [address] [place], [address] Hematocrit (Bld) [Volume fraction] 46.4 % Normal 37-47 [facility] Comment on above: Order Comment: 105.1 Performed By: #### L 500.2500, L100.0500 #### [facility] [address] [place], [address] Hemoglobin (Bld) [Mass/Vol] 15.0 g/dL Normal 12.0-15.0 [facility] Comment on above: Order Comment: 105.1 Performed By: #### L 500.2500, L100.0500 #### [facility] [address] [place], [address] IG% 0.400 Normal 0.0-0.9 [facility] Comment on above: Order Comment: 105.1 Result Comment: IG% - Immature Granulocytes (promyelocytes, myelocytes and metamyelocytes) > 1% indicates that a LEFT SHIFT is Present. Performed By: #### L 500.2500, L100.0500 #### [facility] [address] [place], [address] Lymphocytes/100 WBC (Bld) 44.1 % High 19-41 [facility] Comment on above: Order Comment: 105.1 Performed By: #### L 500.2500, L100.0500 #### [facility] [address] [place], [address] MCH (RBC) [Entitic mass] 32.1 pg High 27.0-32.0 [facility] Comment on above: Order Comment: 105.1 Performed By: #### L 500.2500, L100.0500 #### [facility] [address] [place], [address] MCHC (RBC) [Mass/Vol] 32.3 g/dL Normal 32-36 [facility] Comment on above: Order Comment: 105.1 Performed By: #### L 500.2500, L100.0500 #### [facility] [address] [place], [address] MCV (RBC) [Entitic vol] 99.1 fL High 81-99 [facility] Comment on above: Order Comment: 105.1 Performed By: #### L 500.2500, L100.0500 #### [facility] [address] [place], [address] Monocytes/100 WBC (Bld) 7.7 % Normal 0-10 [facility] Comment on above: Order Comment: 105.1 Performed By: #### L 500.2500, L100.0500 #### [facility] [address] [place], [address] Neutrophils/100 WBC (Bld) 42.2 % Low 47-70 [facility] Comment on above: Order Comment: 105.1 Performed By: #### L 500.2500, L100.0500 #### [facility] [address] [place], [address] Nucleated RBC (Bld) [#/Vol] 0 10*3/uL Normal 0-5 [facility] Comment on above: Order Comment: 105.1 Performed By: #### L 500.2500, L100.0500 #### [facility] [address] [place], [address] Platelet mean volume (Bld) [Entitic vol] 11.6 fL Normal 6.2-12.0 [facility] Comment on above: Order Comment: 105.1 Performed By: #### L 500.2500, L100.0500 #### [facility] [address] [place], [address] Platelets (Bld) [#/Vol] 209 10*3/uL Normal 150-450 [facility] Comment on above: Order Comment: 105.1 Performed By: #### L 500.2500, L100.0500 #### [facility] [address] [place], [address] RBC (Bld) [#/Vol] 4.68 10*6/uL Normal 4.2-5.4 [facility] Comment on above: Order Comment: 105.1 Performed By: #### L 500.2500, L100.0500 #### [facility] [address] [place], [address] RDW SD 48.9 fl High 35.1-43.9 [facility] Comment on above: Order Comment: 105.1 Performed By: #### L 500.2500, L100.0500 #### [facility] [address] [place], [address] WBC (Bld) [#/Vol] 7.8 10*3/uL Normal 4.4-11.0 [facility] Comment on above: Order Comment: 105.1 Performed By: #### L 500.2500, L100.0500 #### [facility] [address] [place], [address] Carbon dioxide measurementOr dered By: Saurabh Fernandez on 09-16-2024 CO2 [Moles/Vol] 31.0 mmol/L 21.0-32.0 [facility] Chloride measurementOrdered By: Saurabh Fernandez on 09-16-2024 Chloride [Moles/Vol] 109 mmol/L High 98-107 [facility] Comprehensive Metabolic Prof ilon 09-16-2024 Albumin [Mass/Vol] 2.8 g/dL Low 3.2-5.0 [facility] Comment on above: Order Comment: 105.1 Performed By: #### L 500.2500, L100.0500 #### [facility] [address] [place], [address] Albumin/Globulin [Mass ratio] 0.7 {ratio} Low 0.9-2.4 [facility] Comment on above: Order Comment: 105.1 Performed By: #### L 500.2500, L100.0500 #### [facility] [address] [place], [address] ALK P 69 U/L Normal 45-117 [facility] Comment on above: Order Comment: 105.1 Performed By: #### L 500.2500, L100.0500 #### [facility] [address] [place], [address] ALT [Catalytic activity/Vol] 21 U/L Normal 13-56 [facility] Comment on above: Order Comment: 105.1 Performed By: #### L 500.2500, L100.0500 #### [facility] [address] [place], [address] AST [Catalytic activity/Vol] 17 U/L Normal 15-37 [facility] Comment on above: Order Comment: 105.1 Performed By: #### L 500.2500, L100.0500 #### [facility] [address] [place], [address] Bilirubin [Mass/Vol] 0.50 mg/dL Normal 0.20-1.00 [facility] Comment on above: Order Comment: 105.1 Result Comment: For patients on eltrombopag therapy, use of Dimension [place] TBIL is not recommended. Performed By: #### L 500.2500, L100.0500 #### [facility] [address] [place], [address] BUN/CRE 30.8 RATIO High 10-20 [facility] Comment on above: Order Comment: 105.1 Performed By: #### L 500.2500, L100.0500 #### [facility] [address] [place], [address] CA,Total 8.7 mg/dL Normal 8.5-10.1 [facility] Comment on above: Order Comment: 105.1 Performed By: #### L 500.2500, L100.0500 #### [facility] [address] [place], [address] Chloride [Moles/Vol] 109 mmol/L High 98-107 [facility] Comment on above: Order Comment: 105.1 Performed By: #### L 500.2500, L100.0500 #### [facility] [address] [place], [address] CO2 [Moles/Vol] 31.0 mmol/L Normal 21.0-32.0 [facility] Comment on above: Order Comment: 105.1 Performed By: #### L 500.2500, L100.0500 #### [facility] [address] [place], [address] Creatinine [Mass/Vol] 1.04 mg/dL High 0.55-1.02 [facility] Comment on above: Order Comment: 105.1 Result Comment: The validity of the calculated GFR GFRAA in patients over 70 years has not been determined. Clinical correlation is essential. Performed By: #### L 500.2500, L100.0500 #### [facility] [address] [place], [address] EST GFR - AA 65 mL/min Normal >60 [facility] Comment on above: Order Comment: 105.1 Result Comment: Afri can Maldivian GFR Calc Performed By: #### L 500.2500, L100.0500 #### [facility] [address] [place], [address] GAP 2 Low 5-15 [facility] Comment on above: Order Comment: 105.1 Performed By: #### L 500.2500, L100.0500 #### [facility] [address] [place], [address] GFR/1.73 sq M.predicted among non-blacks MDRD (S/P/Bld) [Vol rate/Area] 54 mL/min/{1.73_m2} Low >60 [facility] Comment on above: Order Comment: 105.1 Result Comment: Non- GFR Calc Performed By: #### L 500.2500, L100.0500 #### [facility] [address] [place], [address] Globulin (S) [Mass/Vol] 4.0 g/dL Normal 2.2-4.2 [facility] Comment on above: Order Comment: 105.1 Performed By: #### L 500.2500, L100.0500 #### [facility] [address] [place], [address] Glucose [Mass/Vol] 89 mg/dL Normal 74-106 [facility] Comment on above: Order Comment: 105.1 Performed By: #### L 500.2500, L100.0500 #### [facility] [address] [place], [address] Potassium [Moles/Vol] 4.4 mmol/L Normal 3.5-5.1 [facility] Comment on above: Order Comment: 105.1 Performed By: #### L 500.2500, L100.0500 #### [facility] [address] [place], [address] Sodium [Moles/Vol] 142 mmol/L Normal 136-145 [facility] Comment on above: Order Comment: 105.1 Performed By: #### L 500.2500, L100.0500 #### [facility] [address] [place], [address] T PROT 6.8 g/dL Normal 6.4-8.2 [facility] Comment on above: Order Comment: 105.1 Performed By: #### L 500.2500, L100.0500 #### [facility] [address] [place], [address] Urea nitrogen [Mass/Vol] 32 mg/dL High 7-18 [facility] Comment on above: Order Comment: 105.1 Performed By: #### L 500.2500, L100.0500 #### [facility] [address] [place], [address] Eosinophil percentageOrdered By: Saurabh Fernandez on 09-16-2024 Eosinophils/100 WBC (Bld) 4.6 % 0-5 [facility] Erythrocyte distribution wid th (RBC) [Ratio]Ordered By: Saurabh Fernandez on 09-16-2024 Erythrocyte distribution width (RBC) [Entitic vol] 48.9 fL High 35.1-43.9 [facility] Erythrocyte distribution wid th ratioOrdered By: Saurabh Fernandez on 09-16-2024 Erythrocyte distribution width (RBC) [Ratio] 13.3 % 11.6-14.6 [facility] Estimated glomerular filtrat ion rate (GFR) AmericanOrdered By: Saurabh Fernandez on 09-16-2024 Estimated GFR (MDRD) Amer 65 mL/min >60 [facility] Comment on above: GFR Calc Glomerular filtration rate ( GFR) estimationOrdered By: Saurabh Fernandez on 09-16-2024 Estimated GFR (MDRD) Non-Af Amer 54 mL/min Low >60 [facility] Comment on above: Non- GFR Calc Glucose measurementOrdered B y: Saurabh Fernandez on 09-16-2024 Glucose [Mass/Vol] 89 mg/dL 74-106 [facility] Hematocrit Auto (Bld) [Volum e fraction]Ordered By: Saurabh Fernandez on 09-16-2024 Hematocrit (Bld) [Volume fraction] 46.4 % 37-47 [facility] Hemoglobin measurementOrdere d By: Saurabh Fernandez on 09-16-2024 Hemoglobin (Bld) [Mass/Vol] 15.0 g/dL 12.0-15.0 [facility] High density lipoprotein (HD L) measurementOrdered By: Saurabh Fernandez on 09-16-2024 Cholesterol in HDL [Mass/Vol] 52 mg/dL >40 [facility] Comment on above: The drugs N-Acetylcy steine and Metamizole may falsely depress this assay. Reference Range HDL <40 mg/dL Low HDL Cholesterol HDL >or= 60 mg/dL High HDL Cholesterol Immature granulocytes/100 WB C Auto (Bld)Ordered By: Saurabh Fernandez on 09-16-2024 Immature granulocytes/100 WBC (Bld) 0.400 % 0.0-0.9 [facility] Comment on above: IG% - Immature Granu locytes (promyelocytes, myelocytes and metamyelocytes) > 1% indicates that a LEFT SHIFT is Present. Laboratory - Chemistry and C hemistry - challengeOrdered By: Saurabh Fernandez on 09-16-2024 AST [Catalytic activity/Vol] 17 U/L 15-37 [facility] Lipid Profileon 09-16-2024 Cholesterol [Mass/Vol] 190 mg/dL Normal 200 [facility] Comment on above: Order Comment: 105.1 Result Comment: <200 mg/dL Desirable 200-240 mg/dL Borderline >240 mg/dL High Risk Performed By: #### M 100.638 #### [facility] [address] [place], [address] Cholesterol in HDL [Mass/Vol] 52 mg/dL Normal [facility] Comment on above: Order Comment: 105.1 Result Comment: The drugs N-Acetylcysteine and Metamizole may falsely depress this assay. Reference Range HDL <40 mg/dL Low HDL Cholesterol HDL >or= 60 mg/dL High HDL Cholesterol Performed By: #### M 100.638 #### [facility] [address] [place], [address] Cholesterol in LDL [Mass/Vol] 113 mg/dL Normal 0-130 [facility] Comment on above: Order Comment: 105.1 Performed By: #### M 100.638 #### [facility] [address] [place], [place], [address] Cholesterol in VLDL [Mass/Vol] 25 mg/dL Normal 5-40 [facility] Comment on above: Order Comment: 105.1 Performed By: #### M 100.638 #### [facility] [address] [place], [place], [address] Triglyceride [Mass/Vol] 125 mg/dL Normal [facility] Comment on above: Order Comment: 105.1 Result Comment: The drugs N-Acetylcysteine and Metamizole may falsely depress this assay. Serum Triglycerides Reference Interval Normal <150 mg/dL Borderline high 150 - 199 mg/dL High 200 - 499 mg/dL Very High > or = 500 mg/dL Performed By: #### M 100.638 #### [facility] [address] [place], [place], [address] Low density lipoprotein (LDL ) cholesterol measurementOrdered By: Saurabh Fernandez on 09-16-2024 Cholesterol in LDL [Mass/Vol] 113 mg/dL 0-130 [facility] Lymphocytes Auto (Unsp spec) [#/Vol]Ordered By: Saurabh Fernandez on 09-16-2024 Lymphocytes (Bld) [#/Vol] 3.46 10*3/uL 0.83-4.51 [facility] Lymphocytes/100 WBC Auto (Un sp spec)Ordered By: Saurabh Fernandez on 09-16-2024 Lymphocytes/100 WBC (Bld) 44.1 % High 19-41 [facility] MCV (mean corpuscular volume ) determinationOrdered By: Saurabh Fernandez on 09-16-2024 MCV (RBC) [Entitic vol] 99.1 fL High 81-99 [facility] Mean corpuscular hemoglobin (MCH) determinationOrdered By: Saurabh Fernandez on 09-16-2024 MCH (RBC) [Entitic mass] 32.1 pg High 27.0-32.0 [facility] Mean corpuscular hemoglobin concentration (MCHC) determinationOrdered By: Saurabh Fernandez on 09-16-2024 MCHC (RBC) [Mass/Vol] 32.3 g/dL 32-36 [facility] Mean platelet volume determi nationOrdered By: Saurabh Fernandez on 09-16-2024 Platelet mean volume (Bld) [Entitic vol] 11.6 fL 6.2-12.0 [facility] Monocyte percentageOrdered B y: Saurabh Fernandez on 09-16-2024 Monocytes/100 WBC (Bld) 7.7 % 0-10 [facility] Neutrophil percentageOrdered By: Saurabh Fernandez on 09-16-2024 Neutrophils/100 WBC (Bld) 42.2 % Low 47-70 [facility] Nucleated red blood cell per centageOrdered By: Saurabh Fernandez on 09-16-2024 Nucleated RBC/100 WBC (Bld) [Ratio] 0 % 0-5 [facility] Platelet countOrdered By: Nieto on 09-16-2024 Platelets (Bld) [#/Vol] 209 10*3/uL 150-450 [facility] Potassium measurementOrdered By: Saurabh Fernandez on 09-16-2024 Potassium [Moles/Vol] 4.4 mmol/L 3.5-5.1 [facility] RBC Auto (Bld) [#/Vol]Ordere d By: Saurabh Fernandez on 09-16-2024 RBC (Bld) [#/Vol] 4.68 10*6/uL 4.2-5.4 [facility] Serum anion gap measurementO rdered By: Saurabh Fernandez on 09-16-2024 Anion gap [Moles/Vol] 2 mmol/L Low 5-15 [facility] Serum globulin measurementOr dered By: Saurabh Fernandez on 09-16-2024 Globulin (S) [Mass/Vol] 4.0 g/dL 2.2-4.2 [facility] Serum or plasma alanine macedo otransferase (ALT) measurementOrdered By: Saurabh Fernandez on 09-16-2024 ALT [Catalytic activity/Vol] 21 U/L 13-56 [facility] Serum or plasma albumin tyrese urement (mass/volume)Ordered By: Saurabh Fernandez on 09-16-2024 Albumin [Mass/Vol] 2.8 g/dL Low 3.2-5.0 [facility] Serum or plasma alkaline elia sphatase measurementOrdered By: Saurabh Fernandez on 09-16-2024 ALP [Catalytic activity/Vol] 69 U/L 45-117 [facility] Serum or plasma calcium tyrese urement (mass/volume)Ordered By: Saurabh Fernandez on 09-16-2024 Calcium [Mass/Vol] 8.7 mg/dL 8.5-10.1 [facility] Serum or plasma cholesterol measurement (mass/volume)Ordered By: Saurabh Fernandez on 09-16-2024 Cholesterol [Mass/Vol] 190 mg/dL <200 [facility] Comment on above: <200 mg/dL Desirable 200-240 mg/dL Borderline >240 mg/dL High Risk Serum or plasma creatinine m easurement (mass/volume)Ordered By: Saurabh Fernandez on 09-16-2024 Creatinine [Mass/Vol] 1.04 mg/dL High 0.55-1.02 [facility] Comment on above: The validity of the calculated GFR & GFRAA in patients over 70 years has not been determined. Clinical correlation is essential. Serum or plasma urea nitroge n measurement (mass/volume)Ordered By: Saurabh Fernandez on 09-16-2024 Urea nitrogen [Mass/Vol] 32 mg/dL High 7-18 [facility] Sodium levelOrdered By: Saurabh Fernandez on 09-16-2024 Sodium [Moles/Vol] 142 mmol/L 136-145 [facility] TSH QnOrdered By: Saurabh handy on 09-16-2024 Thyroid Stimulating Hormone (TSH) 2.080 uIU/mL 0.358-3.740 [facility] Thyroid Stim Hormone (TSH)on 09-16-2024 TSH 2.080 uIU/mL Normal 0.358-3.740 [facility] Comment on above: Order Comment: 105.1 Performed By: #### M [id number] #### [facility] [place], [address] Total proteinOrdered By: Ambreen Fernandez on 09-16-2024 Protein [Mass/Vol] 6.8 g/dL 6.4-8.2 [facility] Triglycerides measurementOrd ered By: Saurabh Fernandez on 09-16-2024 Triglyceride [Mass/Vol] 125 mg/dL <199 [facility] Comment on above: The drugs N-Acetylcy steine and Metamizole may falsely depress this assay.Serum Triglycerides Reference Interval Normal <150 mg/dL Borderline high 150 - 199 mg/dL High 200 - 499 mg/dL Very High > or = 500 mg/dL Very low density lipoprotein (VLDL) cholesterol measurementOrdered By: Saurabh Fernandez on 09-16-2024 VLDL Cholesterol 25 mg/dL 5-40 [facility] White blood cell (WBC) count Ordered By: Saurabh Fernandez on 09-16-2024 WBC (Bld) [#/Vol] 7.8 10*3/uL 4.4-11.0 [facility] 64-RA-Loynprp DOrdered By: Migue Fernandez on 08-30-2024 Vitamin D 25-Hydroxy 69.9 ng/mL [facility] Comment on above: Vitamin D 25(OH) Sta tus Range Deficiency <20 ng/mL (50nmol/L) Insufficiency 20 - 30 ng/mL (50 - 75 nmol/L) Sufficiency 30 - 100 ng/mL (75 - 250 nmol/L) Toxicity >100 ng/mL (>250 nmol/L) Valproate levelOrdered By: Migue Fernandez on 08-30-2024 Valproic Acid (Depakene) Level 26 ug/mL Low 50-100 [facility] Valproic Acid (Depakene) Lev ladonna 08-30-2024 VALPROIC ACID 26 ug/mL Low 50-100 [facility] Comment on above: Order Comment: 105.1 Performed By: #### L 500.2500, L100.0500 #### [facility] [address] [place], [address] Vitamin D,25 Hydroxyon 08-30 Vitamin D 25-OH 69.9 ng/mL Normal [facility] Comment on above: Order Comment: 105.1 Result Comment: Kerline min D 25(OH) Status Range Deficiency <20 ng/mL (50nmol/L) Insufficiency 20 - 30 ng/mL (50 - 75 nmol/L) Sufficiency 30 - 100 ng/mL (75 - 250 nmol/L) Toxicity >100 ng/mL (>250 nmol/L) Performed By: #### L 500.2500, L100.0500 #### [facility] [address] [place], [address] Thyroid Stim Hormone (TSH)on 08-09-2024 TSH 1.590 uIU/mL Normal 0.358-3.740 [facility] Comment on above: Order Comment: 105.1 Performed By: #### L 500.2500, L100.0500 #### [facility] [address] [place], [address] Absolute lymphocyte countOrd ered By: Saurabh Fernandez on 10-16-2023 Lymphocytes Auto (Unsp spec) [#/Vol] 2.40 10*3/uL 0.83-4.51 [facility] Automated lymphocyte count a s percentage of total leukocytesOrdered By: Saurabh Fernandez on 10-16-2023 Lymphocytes/100 WBC Auto (Unsp spec) 22.2 % 19-41 [facility] Basophil percentageOrdered B y: Saurabh Fernandez on 10-16-2023 Basophils/100 WBC (Bld) 0.6 % 0-1 [facility] Bilirubin [Mass/Vol] 0.50 mg/dL 0.20-1.00 [facility] Comment on above: For patients on eltr ombopag therapy, use of Dimension [place] TBIL is not recommended. Chloride [Moles/Vol] 109 mmol/L 98-107 [facility] Cholesterol [Mass/Vol] 204 mg/dL <200 [facility] Comment on above: <200 mg/dL Desirable 200-240 mg/dL Borderline >240 mg/dL High Risk Eosinophils/100 WBC (Bld) 2.9 % 0-5 [facility] Glucose [Mass/Vol] 84 mg/dL 74-106 [facility] Hemoglobin (Bld) [Mass/Vol] 15.1 g/dL 12.0-15.0 [facility] Monocytes/100 WBC (Bld) 7.4 % 0-10 [facility] Neutrophils (Bld) [#/Vol] 7.2 10*3/uL 2.0-7.7 [facility] Neutrophils/100 WBC (Bld) 66.6 % 47-70 [facility] Potassium [Moles/Vol] 3.9 mmol/L 3.5-5.1 [facility] Protein [Mass/Vol] 6.4 g/dL 6.4-8.2 [facility] Sodium [Moles/Vol] 140 mmol/L 136-145 [facility] Triglyceride [Mass/Vol] 144 mg/dL <199 [facility] Comment on above: The drugs N-Acetylcy steine and Metamizole may falsely depress this assay.Serum Triglycerides Reference Interval Normal <150 mg/dL Borderline high 150 - 199 mg/dL High 200 - 499 mg/dL Very High > or = 500 mg/dL WBC (Bld) [#/Vol] 10.8 10*3/uL 4.4-11.0 [facility] Determination of erythrocyte mean corpuscular volume (MCV)Ordered By: Saurabh Fernandez on 10-16-2023 MCV (RBC) [Entitic vol] 99.6 fL 81-99 [facility] Erythrocyte distribution wid th ratioOrdered By: Saurabh Fernandez on 10-16-2023 Erythrocyte distribution width (RBC) [Ratio] 13.4 % 11.6-14.6 [facility] Erythrocyte distribution wid th standard deviationOrdered By: Saurabh Fernandez on 10-16-2023 Erythrocyte distribution width (RBC) [Entitic vol] 49.4 fL 35.1-43.9 [facility] Hematocrit Auto (Bld) [Volum e fraction]Ordered By: Saurabh Fernandez on 10-16-2023 Hematocrit (Bld) [Volume fraction] 47.5 % 37-47 [facility] Immature granulocytes/100 WB C Auto (Bld)Ordered By: Saurabh Fernandez on 10-16-2023 Immature granulocytes/100 WBC (Bld) 0.300 % 0.0-0.9 [facility] Comment on above: IG% - Immature Granu locytes (promyelocytes, myelocytes and metamyelocytes) > 1% indicates that a LEFT SHIFT is Present. Laboratory - Chemistry and C hemistry - challengeOrdered By: Saurabh Fernanedz on 10-16-2023 Albumin/Globulin [Mass ratio] 0.7 {ratio} 0.9-2.4 [facility] ALP [Catalytic activity/Vol] 67 U/L 45-117 [facility] ALT [Catalytic activity/Vol] 20 U/L 13-56 [facility] Cholesterol in HDL (Body fld) [Mass/Vol] 48 mg/dL >40 [facility] Comment on above: The drugs N-Acetylcy steine and Metamizole may falsely depress this assay. Reference Range HDL <40 mg/dL Low HDL Cholesterol HDL >or= 60 mg/dL High HDL Cholesterol Cholesterol in LDL (Body fld) [Moles/Vol] 127 mg/dL 0-130 [facility] Cholesterol in VLDL Calc [Moles/Vol] 29 mg/dL 5-40 [facility] CO2 [Moles/Vol] 29.0 mmol/L 21.0-32.0 [facility] Globulin (S) [Mass/Vol] 3.7 g/dL 2.2-4.2 [facility] Urea nitrogen/Creatinine [Mass ratio] 27.9 mg/mg 10-20 [facility] Laboratory - Hematology and Cell countsOrdered By: Saurabh Fernandez on 10-16-2023 MCH (RBC) [Entitic mass] 31.7 pg 27.0-32.0 [facility] MCHC (RBC) [Mass/Vol] 31.8 g/dL 32-36 [facility] Nucleated RBC/100 WBC (Bld) [Ratio] 0 % 0-5 [facility] Platelets (Bld) [#/Vol] 185 10*3/uL 150-450 [facility] No Panel InformationOrdered By: Saurabh Fernandez on 10-16-2023 Estimated GFR (MDRD) Amer 86 mL/min >60 [facility] Comment on above: GFR Calc Estimated GFR (MDRD) Non-Af Amer 71 mL/min >60 [facility] Comment on above: Non- GFR Calc Platelet mean volume Lior-Ec ker (Bld) [Entitic vol]Ordered By: Saurabh Fernandez on 10-16-2023 Platelet mean volume (Bld) [Entitic vol] 11.8 fL 6.2-12.0 [facility] RBC Auto (Bld) [#/Vol]Ordere d By: Saurabh Fernandez on 10-16-2023 RBC (Bld) [#/Vol] 4.77 10*6/uL 4.2-5.4 [facility] Serum or plasma calcium tyrese urement (mass/volume)Ordered By: Saurabh Fernandez on 10-16-2023 Calcium [Mass/Vol] 8.9 mg/dL 8.5-10.1 [facility] Serum or plasma creatinine m easurement (mass/volume)Ordered By: Saurabh Fernandez on 10-16-2023 Creatinine [Mass/Vol] 0.82 mg/dL 0.55-1.02 [facility] Comment on above: The validity of the calculated GFR & GFRAA in patients over 70 years has not been determined. Clinical correlation is essential. Serum or plasma thyroid stim ulating hormone (TSH) measurement (units/volume)Ordered By: Saurabh Fernandez on 10-16-2023 TSH Qn 2.62 uIU/mL 0.358-3.74 [facility] Serum or plasma urea nitroge n measurement (mass/volume)Ordered By: Saurabh Fernandez on 10-16-2023 Urea nitrogen [Mass/Vol] 23 mg/dL 7-18 [facility] Thin prep Papanicolaou smear with manual screeningOrdered By: Saurabh Fernandez on 10-16-2023 Thin prep Papanicolaou smear with manual screening 2.7 g/dL 3.2-5.0 [facility] Thin prep Papanicolaou smear with manual screening 15 U/L 15-37 [facility] Thin prep Papanicolaou smear with manual screening 2 5-15 [facility] No Panel InformationOrdered By: Saurabh Fernandez on 09-29-2023 Valproic Acid (Depakene) Level 27 ug/mL 50-100 [facility] Vitamin D 25-Hydroxy 86.5 ng/mL [facility] Comment on above: Vitamin D 25(OH) Sta tus Range Deficiency <20 ng/mL (50nmol/L) Insufficiency 20 - 30 ng/mL (50 - 75 nmol/L) Sufficiency 30 - 100 ng/mL (75 - 250 nmol/L) Toxicity >100 ng/mL (>250 nmol/L) Absolute lymphocyte countOrd ered By: Saurabh Fernandez on 09-01-2023 Lymphocytes Auto (Unsp spec) [#/Vol] 4.12 10*3/uL 0.83-4.51 [facility] Basophil percentageOrdered B y: Saurabh Fernandez on 09-01-2023 Basophils/100 WBC (Bld) 0.8 % 0-1 [facility] Bilirubin [Mass/Vol] 0.80 mg/dL 0.20-1.00 [facility] Comment on above: For patients on eltr ombopag therapy, use of Dimension [place] TBIL is not recommended. Chloride [Moles/Vol] 110 mmol/L 98-107 [facility] Eosinophils/100 WBC (Bld) 4.8 % 0-5 [facility] Glucose [Mass/Vol] 79 mg/dL 74-106 [facility] Neutrophils (Bld) [#/Vol] 4.2 10*3/uL 2.0-7.7 [facility] Neutrophils/100 WBC (Bld) 43.6 % 47-70 [facility] Potassium [Moles/Vol] 4.1 mmol/L 3.5-5.1 [facility] Comment on above: Moderate Hemolysis, Result may be falsely increased. Protein [Mass/Vol] 6.7 g/dL 6.4-8.2 [facility] Sodium [Moles/Vol] 142 mmol/L 136-145 [facility] WBC (Bld) [#/Vol] 9.7 10*3/uL 4.4-11.0 [facility] Blood erythrocytes count (nu mber/volume)Ordered By: Saurabh Fernandez on 09-01-2023 RBC (Bld) [#/Vol] 5.00 10*6/uL 4.2-5.4 [facility] Blood hemoglobin measurement (mass/volume)Ordered By: Saurabh Fernandez on 09-01-2023 Hemoglobin (Bld) [Mass/Vol] 16.0 g/dL 12.0-15.0 [facility] Blood lymphocytes/100 leukoc ytesOrdered By: Saurabh Fernandez on 09-01-2023 Lymphocytes/100 WBC (Bld) 42.4 % 19-41 [facility] Blood monocytes/100 leukocyt esOrdered By: Saurabh Fernandez on 09-01-2023 Monocytes/100 WBC (Bld) 7.9 % 0-10 [facility] Blood platelet mean volumeOr dered By: Saurabh Fernandez on 09-01-2023 Platelet mean volume (Bld) [Entitic vol] 11.9 fL 6.2-12.0 [facility] Determination of erythrocyte mean corpuscular volume (MCV)Ordered By: Saurabh Fernandez on 09-01-2023 MCV (RBC) [Entitic vol] 100.8 fL 81-99 [facility] Hematocrit Auto (Bld) [Volum e fraction]Ordered By: Saurabh Fernandez on 09-01-2023 Hematocrit (Bld) [Volume fraction] 50.4 % 37-47 [facility] Laboratory - Chemistry and C hemistry - challengeOrdered By: Saurabh Fernandez on 09-01-2023 ALP [Catalytic activity/Vol] 67 U/L 45-117 [facility] ALT [Catalytic activity/Vol] 21 U/L 13-56 [facility] CO2 [Moles/Vol] 26.0 mmol/L 21.0-32.0 [facility] Globulin (S) [Mass/Vol] 4.0 g/dL 2.2-4.2 [facility] Urea nitrogen/Creatinine [Mass ratio] 30.2 mg/mg 10-20 [facility] Laboratory - Hematology and Cell countsOrdered By: Saurabh Fernandez on 09-01-2023 Erythrocyte distribution width (RBC) [Entitic vol] 52.3 fL 35.1-43.9 [facility] Erythrocyte distribution width (RBC) [Ratio] 14.0 % 11.6-14.6 [facility] Immature granulocytes/100 WBC (Bld) 0.500 % 0.0-0.9 [facility] Comment on above: IG% - Immature Granu locytes (promyelocytes, myelocytes and metamyelocytes) > 1% indicates that a LEFT SHIFT is Present. MCH (RBC) [Entitic mass] 32.0 pg 27.0-32.0 [facility] Nucleated RBC/100 [facility]Bld) [[facility]] 0 [facility] [Mass/Vol]Or dered By: Saurabh Fernandez on 09-01-2023 MCHC (RBC) [Mass/Vol] 31.7 g/dL 32-36 [facility] No Panel InformationOrdered By: Saurabh Fernandez on 09-01-2023 Estimated GFR (MDRD) Amer 72 mL/min >60 [facility] Comment on above: GFR Calc Estimated GFR (MDRD) Non-Af Amer 59 mL/min >60 [facility] Comment on above: Non- GFR Calc Platelets bldOrdered By: Ambreen Fernandez on 09-01-2023 Platelets (Bld) [#/Vol] 221 10*3/uL 150-450 [facility] Serum or plasma albumin tyrese urement (mass/volume)Ordered By: Saurabh Fernandez on 09-01-2023 Albumin [Mass/Vol] 2.7 g/dL 3.2-5.0 [facility] Serum or plasma albumin/glob ulin mass ratioOrdered By: Saurabh Fernandez on 09-01-2023 Albumin/Globulin [Mass ratio] 0.7 {ratio} 0.9-2.4 [facility] Serum or plasma calcium tyrese urement (mass/volume)Ordered By: Saurabh Fernandez on 09-01-2023 Calcium [Mass/Vol] 8.3 mg/dL 8.5-10.1 [facility] Serum or plasma creatinine m easurement (mass/volume)Ordered By: Saurabh Fernandez on 09-01-2023 Creatinine [Mass/Vol] 0.96 mg/dL 0.55-1.02 [facility] Comment on above: The validity of the calculated GFR & GFRAA in patients over 70 years has not been determined. Clinical correlation is essential. Serum or plasma urea nitroge n measurement (mass/volume)Ordered By: Saurabh Fernandez on 09-01-2023 Urea nitrogen [Mass/Vol] 29 mg/dL 7-18 [facility] Thin prep Papanicolaou smear with manual screeningOrdered By: Saurabh Fernandez on 09-01-2023 Thin prep Papanicolaou smear with manual screening 24 U/L 15-37 [facility] Comment on above: Moderate Hemolysis, Result may be falsely increased. Thin prep Papanicolaou smear with manual screening 6 5-15 [facility] Absolute lymphocyte countOrd ered By: Saurabh Fernandez on 07-24-2023 Lymphocytes Auto (Unsp spec) [#/Vol] 3.02 10*3/uL 0.83-4.51 [facility] Basophil percentageOrdered B y: Saurabh Fernandez on 07-24-2023 Basophils/100 WBC (Bld) 0.6 % 0-1 [facility] Bilirubin [Mass/Vol] 0.40 mg/dL 0.20-1.00 [facility] Comment on above: For patients on eltr ombopag therapy, use of Dimension [place] [employer] TBIL is not recommended. Chloride [Moles/Vol] 110 mmol/L 98-107 [facility] Cholesterol [Mass/Vol] 189 mg/dL <200 [facility] Comment on above: <200 mg/dL Desirable 200-240 mg/dL Borderline >240 mg/dL High Risk Eosinophils/100 WBC (Bld) 4.2 % 0-5 [facility] Glucose [Mass/Vol] 85 mg/dL 74-106 [facility] Neutrophils (Bld) [#/Vol] 3.1 10*3/uL 2.0-7.7 [facility] Neutrophils/100 WBC (Bld) 43.7 % 47-70 [facility] Potassium [Moles/Vol] 4.2 mmol/L 3.5-5.1 [facility] Protein [Mass/Vol] 6.4 g/dL 6.4-8.2 [facility] Sodium [Moles/Vol] 141 mmol/L 136-145 [facility] Triglyceride [Mass/Vol] 137 mg/dL <199 [facility] Comment on above: The drugs N-Acetylcy steine and Metamizole may falsely depress this assay.Serum Triglycerides Reference Interval Normal <150 mg/dL Borderline high 150 - 199 mg/dL High 200 - 499 mg/dL Very High > or = 500 mg/dL WBC (Bld) [#/Vol] 7.1 10*3/uL 4.4-11.0 [facility] Blood erythrocytes count (nu mber/volume)Ordered By: Saurabh Fernandez on 07-24-2023 RBC (Bld) [#/Vol] 4.72 10*6/uL 4.2-5.4 [facility] Blood hemoglobin measurement (mass/volume)Ordered By: Saurabh Fernandez on 07-24-2023 Hemoglobin (Bld) [Mass/Vol] 14.8 g/dL 12.0-15.0 [facility] Blood lymphocytes/100 leukoc ytesOrdered By: Saurabh Fernandez on 07-24-2023 Lymphocytes/100 WBC (Bld) 42.6 % 19-41 [facility] Blood monocytes/100 leukocyt esOrdered By: Saurabh Fernandez on 07-24-2023 Monocytes/100 WBC (Bld) 8.5 % 0-10 [facility] Blood platelet mean volumeOr dered By: Saurabh Fernandez on 07-24-2023 Platelet mean volume (Bld) [Entitic vol] 12.0 fL 6.2-12.0 [facility] Determination of erythrocyte mean corpuscular volume (MCV)Ordered By: Saurabh Fernandez on 07-24-2023 MCV (RBC) [Entitic vol] 100.2 fL 81-99 [facility] Hematocrit Auto (Bld) [Volum e fraction]Ordered By: Saurabh Fernandez on 07-24-2023 Hematocrit (Bld) [Volume fraction] 47.3 % 37-47 [facility] Laboratory - Chemistry and C hemistry - challengeOrdered By: Saurabh Fernandez on 07-24-2023 ALP [Catalytic activity/Vol] 57 U/L 45-117 [facility] ALT [Catalytic activity/Vol] 18 U/L 13-56 [facility] CO2 [Moles/Vol] 29.0 mmol/L 21.0-32.0 [facility] Globulin (S) [Mass/Vol] 3.9 g/dL 2.2-4.2 [facility] Urea nitrogen/Creatinine [Mass ratio] 32.6 mg/mg 10-20 [facility] Laboratory - Hematology and Cell countsOrdered By: Saurabh Fernandez on 07-24-2023 Erythrocyte distribution width (RBC) [Entitic vol] 50.6 fL 35.1-43.9 [facility] Erythrocyte distribution width (RBC) [Ratio] 13.7 % 11.6-14.6 [facility] Immature granulocytes/100 WBC (Bld) 0.400 % 0.0-0.9 [facility] Comment on above: IG% - Immature Granu locytes (promyelocytes, myelocytes and metamyelocytes) > 1% indicates that a LEFT SHIFT is Present. MCH (RBC) [Entitic mass] 31.4 pg 27.0-32.0 [facility] Nucleated RBC/100 WBC (Bld) [Ratio] 0 % 0-5 [facility] MCHC Auto (RBC) [Mass/Vol]Or dered By: Saurabh Fernandez on 07-24-2023 MCHC (RBC) [Mass/Vol] 31.3 g/dL 32-36 [facility] No Panel InformationOrdered By: Saurabh Fernandez on 07-24-2023 Estimated GFR (MDRD) Amer 82 mL/min >60 [facility] Comment on above: GFR Calc Estimated GFR (MDRD) Non-Af Amer 67 mL/min >60 [facility] Comment on above: Non- GFR Calc Thyroid Stimulating Hormone (TSH) 1.79 uIU/mL 0.358-3.74 [facility] Platelets bldOrdered By: Ambreen Fernandez on 07-24-2023 Platelets (Bld) [#/Vol] 191 10*3/uL 150-450 [facility] Serum or plasma albumin tyrese urement (mass/volume)Ordered By: Saurabh Fernandez on 07-24-2023 Albumin [Mass/Vol] 2.5 g/dL 3.2-5.0 [facility] Serum or plasma albumin/glob ulin mass ratioOrdered By: Saurabh Fernandez on 07-24-2023 Albumin/Globulin [Mass ratio] 0.6 {ratio} 0.9-2.4 [facility] Serum or plasma calcium tyrese urement (mass/volume)Ordered By: Saurabh Fernandez on 07-24-2023 Calcium [Mass/Vol] 8.3 mg/dL 8.5-10.1 [facility] Serum or plasma cholesterol in HDL measurement (mass/volume)Ordered By: Saurabh Fernandez on 07-24-2023 Cholesterol in HDL [Mass/Vol] 45 mg/dL >40 [facility] Comment on above: The drugs N-Acetylcy steine and Metamizole may falsely depress this assay. Reference Range HDL <40 mg/dL Low HDL Cholesterol HDL >or= 60 mg/dL High HDL Cholesterol Serum or plasma cholesterol in VLDL measurement (mass/volume)Ordered By: Saurabh Fernandez on 07-24-2023 Cholesterol in VLDL [Mass/Vol] 27 mg/dL 5-40 [facility] Serum or plasma creatinine m easurement (mass/volume)Ordered By: Saurabh Fernandez on 07-24-2023 Creatinine [Mass/Vol] 0.86 mg/dL 0.55-1.02 [facility] Comment on above: The validity of the calculated GFR & GFRAA in patients over 70 years has not been determined. Clinical correlation is essential. Serum or plasma low density lipoprotein (LDL) cholesterol measurement (mass/volume)Ordered By: Saurabh Fernandez on 07-24-2023 Cholesterol in LDL [Mass/Vol] 117 mg/dL 0-130 [facility] Serum or plasma urea nitroge n measurement (mass/volume)Ordered By: Saurabh Fernandez on 07-24-2023 Urea nitrogen [Mass/Vol] 28 mg/dL 7-18 [facility] Thin prep Papanicolaou smear with manual screeningOrdered By: Saurabh Fernandez on 07-24-2023 Thin prep Papanicolaou smear with manual screening 19 U/L 15-37 [facility] Thin prep Papanicolaou smear with manual screening 2 5-15 [facility] No Panel InformationOrdered By: Saurabh Fernandez on 06-30-2023 Valproic Acid (Depakene) Level 33 ug/mL 50-100 [facility] Absolute lymphocyte countOrd ered By: Saurabh Fernandez on 05-01-2023 Lymphocytes Auto (Unsp spec) [#/Vol] 3.15 10*3/uL 0.83-4.51 [facility] Basophil percentageOrdered B y: Saurabh Fernandez on 05-01-2023 Basophils/100 WBC (Bld) 0.6 % 0-1 [facility] Bilirubin [Mass/Vol] 0.50 mg/dL 0.20-1.00 [facility] Comment on above: For patients on eltr ombopag therapy, use of Dimension [place] TBIL is not recommended. Chloride [Moles/Vol] 108 mmol/L 98-107 [facility] Cholesterol [Mass/Vol] 205 mg/dL <200 [facility] Comment on above: <200 mg/dL Desirable 200-240 mg/dL Borderline >240 mg/dL High Risk Eosinophils/100 WBC (Bld) 3.6 % 0-5 [facility] Glucose [Mass/Vol] 90 mg/dL 74-106 [facility] Neutrophils (Bld) [#/Vol] 3.1 10*3/uL 2.0-7.7 [facility] Neutrophils/100 WBC (Bld) 42.3 % 47-70 [facility] Potassium [Moles/Vol] 4.5 mmol/L 3.5-5.1 [facility] Protein [Mass/Vol] 7.2 g/dL 6.4-8.2 [facility] Sodium [Moles/Vol] 142 mmol/L 136-145 [facility] Triglyceride [Mass/Vol] 160 mg/dL <199 [facility] Comment on above: The drugs N-Acetylcy steine and Metamizole may falsely depress this assay.Serum Triglycerides Reference Interval Normal <150 mg/dL Borderline high 150 - 199 mg/dL High 200 - 499 mg/dL Very High > or = 500 mg/dL WBC (Bld) [#/Vol] 7.3 10*3/uL 4.4-11.0 [facility] Blood erythrocytes count (nu mber/volume)Ordered By: Saurabh Fernandez on 05-01-2023 RBC (Bld) [#/Vol] 4.82 10*6/uL 4.2-5.4 [facility] Blood hemoglobin measurement (mass/volume)Ordered By: Saurabh Fernandez on 05-01-2023 Hemoglobin (Bld) [Mass/Vol] 15.1 g/dL 12.0-15.0 [facility] Blood lymphocytes/100 leukoc ytesOrdered By: Saurabh Fernandez on 05-01-2023 Lymphocytes/100 WBC (Bld) 43.3 % 19-41 [facility] Blood monocytes/100 leukocyt esOrdered By: Saurabh Fernandez on 05-01-2023 Monocytes/100 WBC (Bld) 9.5 % 0-10 [facility] Blood platelet mean volumeOr dered By: Saurabh Fernandez on 05-01-2023 Platelet mean volume (Bld) [Entitic vol] 12.2 fL 6.2-12.0 [facility] Determination of erythrocyte mean corpuscular volume (MCV)Ordered By: Saurabh Fernandez on 05-01-2023 MCV (RBC) [Entitic vol] 100.2 fL 81-99 [facility] Hematocrit Auto (Bld) [Volum e fraction]Ordered By: Saurabh Fernandez on 05-01-2023 Hematocrit (Bld) [Volume fraction] 48.3 % 37-47 [facility] Laboratory - Chemistry and C hemistry - challengeOrdered By: Saurabh Fernandez on 05-01-2023 ALP [Catalytic activity/Vol] 71 U/L 45-117 [facility] ALT [Catalytic activity/Vol] 27 U/L 13-56 [facility] CO2 [Moles/Vol] 29.0 mmol/L 21.0-32.0 [facility] Globulin (S) [Mass/Vol] 4.3 g/dL 2.2-4.2 [facility] Urea nitrogen/Creatinine [Mass ratio] 29.5 mg/mg 10-20 [facility] Laboratory - Hematology and Cell countsOrdered By: Saurabh Fernandez on 05-01-2023 Erythrocyte distribution width (RBC) [Entitic vol] 50.1 fL 35.1-43.9 [facility] Erythrocyte distribution width (RBC) [Ratio] 13.4 % 11.6-14.6 [facility] Immature granulocytes/100 WBC (Bld) 0.700 % 0.0-0.9 [facility] Comment on above: IG% - Immature Granu locytes (promyelocytes, myelocytes and metamyelocytes) > 1% indicates that a LEFT SHIFT is Present. MCH (RBC) [Entitic mass] 31.3 pg 27.0-32.0 [facility] Nucleated RBC/100 W[facility] (Bld) [Ratio] 0 % 0-[facility]) [Mass/Vol]Or dered By: Saurabh Fernandez on 05-01-2023 MCHC (RBC) [Mass/Vol] 31.3 g/dL 32-36 [facility] No Panel InformationOrdered By: Saurabh Fernandez on 05-01-2023 Estimated GFR (MDRD) Amer 60 mL/min >60 [facility] Comment on above: GFR Calc Estimated GFR (MDRD) Non-Af Amer 50 mL/min >60 [facility] Comment on above: Non- GFR Calc Thyroid Stimulating Hormone (TSH) 2.38 uIU/mL 0.358-3.74 [facility] Platelets bldOrdered By: Ambreen Fernandez on 05-01-2023 Platelets (Bld) [#/Vol] 181 10*3/uL 150-450 [facility] Serum or plasma albumin tyrese urement (mass/volume)Ordered By: Saurabh Fernandez on 05-01-2023 Albumin [Mass/Vol] 2.9 g/dL 3.2-5.0 [facility] Serum or plasma albumin/glob ulin mass ratioOrdered By: Saurabh Fernandez on 05-01-2023 Albumin/Globulin [Mass ratio] 0.7 {ratio} 0.9-2.4 [facility] Serum or plasma calcium tyrese urement (mass/volume)Ordered By: Saurabh Fernandez on 05-01-2023 Calcium [Mass/Vol] 9.0 mg/dL 8.5-10.1 [facility] Serum or plasma cholesterol in HDL measurement (mass/volume)Ordered By: Saurabh Fernandez on 05-01-2023 Cholesterol in HDL [Mass/Vol] 53 mg/dL >40 [facility] Comment on above: The drugs N-Acetylcy steine and Metamizole may falsely depress this assay. Reference Range HDL <40 mg/dL Low HDL Cholesterol HDL >or= 60 mg/dL High HDL Cholesterol Serum or plasma cholesterol in VLDL measurement (mass/volume)Ordered By: Saurabh Fernandez on 05-01-2023 Cholesterol in VLDL [Mass/Vol] 32 mg/dL 5-40 [facility] Serum or plasma creatinine m easurement (mass/volume)Ordered By: Saurabh Fernandez on 05-01-2023 Creatinine [Mass/Vol] 1.12 mg/dL 0.55-1.02 [facility] Comment on above: The validity of the calculated GFR & GFRAA in patients over 70 years has not been determined. Clinical correlation is essential. Serum or plasma low density lipoprotein (LDL) cholesterol measurement (mass/volume)Ordered By: Saurabh Fernandez on 05-01-2023 Cholesterol in LDL [Mass/Vol] 120 mg/dL 0-130 [facility] Serum or plasma urea nitroge n measurement (mass/volume)Ordered By: Saurabh Fernandez on 05-01-2023 Urea nitrogen [Mass/Vol] 33 mg/dL 7-18 [facility] Thin prep Papanicolaou smear with manual screeningOrdered By: Saurabh Fernandez on 05-01-2023 Thin prep Papanicolaou smear with manual screening 21 U/L 15-37 [facility] Thin prep Papanicolaou smear with manual screening 5 5-15 [facility] No Panel InformationOrdered By: Saurabh Fernandez on 04-07-2023 Valproic Acid (Depakene) Level 29 ug/mL 50-100 [facility] Absolute lymphocyte countOrd ered By: Saurabh Fernandez on 02-06-2023 Lymphocytes Auto (Unsp spec) [#/Vol] 2.99 10*3/uL 0.83-4.51 [facility] Basophil percentageOrdered B y: Saurabh Fernandez on 02-06-2023 Basophils/100 WBC (Bld) 0.3 % 0-1 [facility] Bilirubin [Mass/Vol] 0.40 mg/dL 0.20-1.00 [facility] Comment on above: For patients on eltr ombopag therapy, use of Dimension [place] TBIL is not recommended. Chloride [Moles/Vol] 110 mmol/L 98-107 [facility] Cholesterol [Mass/Vol] 196 mg/dL <200 [facility] Comment on above: <200 mg/dL Desirable 200-240 mg/dL Borderline >240 mg/dL High Risk Eosinophils/100 WBC (Bld) 4.4 % 0-5 [facility] Glucose [Mass/Vol] 90 mg/dL 74-106 [facility] Neutrophils (Bld) [#/Vol] 2.9 10*3/uL 2.0-7.7 [facility] Neutrophils/100 WBC (Bld) 43.3 % 47-70 [facility] Potassium [Moles/Vol] 4.4 mmol/L 3.5-5.1 [facility] Protein [Mass/Vol] 6.2 g/dL 6.4-8.2 [facility] Sodium [Moles/Vol] 143 mmol/L 136-145 [facility] Triglyceride [Mass/Vol] 157 mg/dL <199 [facility] Comment on above: The drugs N-Acetylcy steine and Metamizole may falsely depress this assay.Serum Triglycerides Reference Interval Normal <150 mg/dL Borderline high 150 - 199 mg/dL High 200 - 499 mg/dL Very High > or = 500 mg/dL WBC (Bld) [#/Vol] 6.8 10*3/uL 4.4-11.0 [facility] Blood erythrocytes count (nu mber/volume)Ordered By: Saurabh Fernandez on 02-06-2023 RBC (Bld) [#/Vol] 4.40 10*6/uL 4.2-5.4 [facility] Blood hemoglobin measurement (mass/volume)Ordered By: Saurabh Fernandez on 02-06-2023 Hemoglobin (Bld) [Mass/Vol] 13.5 g/dL 12.0-15.0 [facility] Blood lymphocytes/100 leukoc ytesOrdered By: Saurabh Fernandez on 02-06-2023 Lymphocytes/100 WBC (Bld) 44.0 % 19-41 [facility] Blood monocytes/100 leukocyt esOrdered By: Saurabh Fernandez on 02-06-2023 Monocytes/100 WBC (Bld) 7.6 % 0-10 [facility] Blood platelet mean volumeOr dered By: Saurabh Fernandez on 02-06-2023 Platelet mean volume (Bld) [Entitic vol] 11.6 fL 6.2-12.0 [facility] Determination of erythrocyte mean corpuscular volume (MCV)Ordered By: Saurabh Fernnadez on 02-06-2023 MCV (RBC) [Entitic vol] 100.0 fL 81-99 [facility] Hematocrit Auto (Bld) [Volum e fraction]Ordered By: Saurabh Fernandez on 02-06-2023 Hematocrit (Bld) [Volume fraction] 44.0 % 37-47 [facility] Laboratory - Chemistry and C hemistry - challengeOrdered By: Saurabh Fernandez on 02-06-2023 ALP [Catalytic activity/Vol] 63 U/L 45-117 [facility] ALT [Catalytic activity/Vol] 20 U/L 13-56 [facility] CO2 [Moles/Vol] 28.0 mmol/L 21.0-32.0 [facility] Globulin (S) [Mass/Vol] 3.8 g/dL 2.2-4.2 [facility] Urea nitrogen/Creatinine [Mass ratio] 25.0 mg/mg 10-20 [facility] Laboratory - Hematology and Cell countsOrdered By: Saurabh Fernandez on 02-06-2023 Erythrocyte distribution width (RBC) [Entitic vol] 51.3 fL 35.1-43.9 [facility] Erythrocyte distribution width (RBC) [Ratio] 13.9 % 11.6-14.6 [facility] Immature granulocytes/100 WBC (Bld) 0.400 % 0.0-0.9 [facility] Comment on above: IG% - Immature Granu locytes (promyelocytes, myelocytes and metamyelocytes) > 1% indicates that a LEFT SHIFT is Present. MCH (RBC) [Entitic mass] 30.7 pg 27.0-32.0 [facility] Nucleated RBC/100 WBC (Bld) [Ratio] 0 % 0-5 [facility] MCHC Auto (RBC) [Mass/Vol]Or dered By: Saurabh Fernandez on 02-06-2023 MCHC (RBC) [Mass/Vol] 30.7 g/dL 32-36 [facility] No Panel InformationOrdered By: Saurabh Fernandez on 02-06-2023 Estimated GFR (MDRD) Amer 84 mL/min >60 [facility] Comment on above: GFR Calc Estimated GFR (MDRD) Non-Af Amer 69 mL/min >60 [facility] Comment on above: Non- GFR Calc Thyroid Stimulating Hormone (TSH) 2.21 uIU/mL 0.358-3.74 [facility] Platelets bldOrdered By: Ambreen Fernandez on 02-06-2023 Platelets (Bld) [#/Vol] 204 10*3/uL 150-450 [facility] Serum or plasma albumin tyrese urement (mass/volume)Ordered By: Saurabh Fernandez on 02-06-2023 Albumin [Mass/Vol] 2.4 g/dL 3.2-5.0 [facility] Serum or plasma albumin/glob ulin mass ratioOrdered By: Saurabh Fernandez on 02-06-2023 Albumin/Globulin [Mass ratio] 0.6 {ratio} 0.9-2.4 [facility] Serum or plasma calcium tyrese urement (mass/volume)Ordered By: Saurabh Fernandez on 02-06-2023 Calcium [Mass/Vol] 8.2 mg/dL 8.5-10.1 [facility] Serum or plasma cholesterol in HDL measurement (mass/volume)Ordered By: Saurabh Fernandez on 02-06-2023 Cholesterol in HDL [Mass/Vol] 51 mg/dL >40 [facility] Comment on above: The drugs N-Acetylcy steine and Metamizole may falsely depress this assay. Reference Range HDL <40 mg/dL Low HDL Cholesterol HDL >or= 60 mg/dL High HDL Cholesterol Serum or plasma cholesterol in VLDL measurement (mass/volume)Ordered By: Saurabh Fernandez on 02-06-2023 Cholesterol in VLDL [Mass/Vol] 31 mg/dL 5-40 [facility] Serum or plasma creatinine m easurement (mass/volume)Ordered By: Saurabh Fernandez on 02-06-2023 Creatinine [Mass/Vol] 0.84 mg/dL 0.55-1.02 [facility] Comment on above: The validity of the calculated GFR & GFRAA in patients over 70 years has not been determined. Clinical correlation is essential. Serum or plasma low density lipoprotein (LDL) cholesterol measurement (mass/volume)Ordered By: Saurabh Fernandez on 02-06-2023 Cholesterol in LDL [Mass/Vol] 114 mg/dL 0-130 [facility] Serum or plasma urea nitroge n measurement (mass/volume)Ordered By: Saurabh Fernandez on 02-06-2023 Urea nitrogen [Mass/Vol] 21 mg/dL 7-18 [facility] Thin prep Papanicolaou smear with manual screeningOrdered By: Saurabh Fernandez on 02-06-2023 Thin prep Papanicolaou smear with manual screening 15 U/L 15-37 [facility] Thin prep Papanicolaou smear with manual screening 5 5-15 [facility] No Panel InformationOrdered By: Saurabh Fernandez on 01-13-2023 Valproic Acid (Depakene) Level 38 ug/mL 50-100 [facility] Absolute lymphocyte countOrd ered By: Saurabh Fernandez on 11-14-2022 Lymphocytes Auto (Unsp spec) [#/Vol] 2.82 10*3/uL 0.83-4.51 [facility] Basophil percentageOrdered B y: Saurabh Fernandez on 11-14-2022 Basophils/100 WBC (Bld) 0.3 % 0-1 [facility] Bilirubin [Mass/Vol] 0.40 mg/dL 0.20-1.00 [facility] Comment on above: For patients on eltr ombopag therapy, use of Dimension [place] TBIL is not recommended. Chloride [Moles/Vol] 111 mmol/L 98-107 [facility] Cholesterol [Mass/Vol] 179 mg/dL <200 [facility] Comment on above: <200 mg/dL Desirable 200-240 mg/dL Borderline >240 mg/dL High Risk Eosinophils/100 WBC (Bld) 3.6 % 0-5 [facility] Glucose [Mass/Vol] 77 mg/dL 74-106 [facility] Neutrophils (Bld) [#/Vol] 6.6 10*3/uL 2.0-7.7 [facility] Neutrophils/100 WBC (Bld) 61.7 % 47-70 [facility] Potassium [Moles/Vol] 4.2 mmol/L 3.5-5.1 [facility] Protein [Mass/Vol] 6.4 g/dL 6.4-8.2 [facility] Sodium [Moles/Vol] 145 mmol/L 136-145 [facility] Triglyceride [Mass/Vol] 124 mg/dL <199 [facility] Comment on above: The drugs N-Acetylcy steine and Metamizole may falsely depress this assay.Serum Triglycerides Reference Interval Normal <150 mg/dL Borderline high 150 - 199 mg/dL High 200 - 499 mg/dL Very High > or = 500 mg/dL WBC (Bld) [#/Vol] 10.7 10*3/uL 4.4-11.0 [facility] Blood erythrocytes count (nu mber/volume)Ordered By: Saurabh Fernandez on 11-14-2022 RBC (Bld) [#/Vol] 4.11 10*6/uL 4.2-5.4 [facility] Blood hemoglobin measurement (mass/volume)Ordered By: Saurabh Fernandez on 11-14-2022 Hemoglobin (Bld) [Mass/Vol] 12.7 g/dL 12.0-15.0 [facility] Blood lymphocytes/100 leukoc ytesOrdered By: Saurabh Fernandez on 11-14-2022 Lymphocytes/100 WBC (Bld) 26.4 % 19-41 [facility] Blood monocytes/100 leukocyt esOrdered By: Saurabh Fernandez on 11-14-2022 Monocytes/100 WBC (Bld) 7.6 % 0-10 [facility] Blood platelet mean volumeOr dered By: Saurabh Fernandez on 11-14-2022 Platelet mean volume (Bld) [Entitic vol] 11.6 fL 6.2-12.0 [facility] Determination of erythrocyte mean corpuscular volume (MCV)Ordered By: Saurabh Fernandez on 11-14-2022 MCV (RBC) [Entitic vol] 99.5 fL 81-99 [facility] Hematocrit Auto (Bld) [Volum e fraction]Ordered By: Saurabh Fernandez on 11-14-2022 Hematocrit (Bld) [Volume fraction] 40.9 % 37-47 [facility] Laboratory - Chemistry and C hemistry - challengeOrdered By: Saurabh Fernandez on 11-14-2022 ALP [Catalytic activity/Vol] 70 U/L 45-117 [facility] ALT [Catalytic activity/Vol] 22 U/L 13-56 [facility] CO2 [Moles/Vol] 29.0 mmol/L 21.0-32.0 [facility] Globulin (S) [Mass/Vol] 3.9 g/dL 2.2-4.2 [facility] Urea nitrogen/Creatinine [Mass ratio] 25.1 mg/mg 10-20 [facility] Laboratory - Hematology and Cell countsOrdered By: Sauarbh Fernandez on 11-14-2022 Erythrocyte distribution width (RBC) [Entitic vol] 52.2 fL 35.1-43.9 [facility] Erythrocyte distribution width (RBC) [Ratio] 14.3 % 11.6-14.6 [facility] Immature granulocytes/100 WBC (Bld) 0.400 % 0.0-0.9 [facility] Comment on above: IG% - Immature Granu locytes (promyelocytes, myelocytes and metamyelocytes) > 1% indicates that a LEFT SHIFT is Present. MCH (RBC) [Entitic mass] 30.9 pg 27.0-32.0 [facility] Nucleated RBC/100 WBC (Bld) [Ratio] 0 % 0-5 [facility] MCHC Auto (RBC) [Mass/Vol]Or dered By: Saurabh Fernandez on 11-14-2022 MCHC (RBC) [Mass/Vol] 31.1 g/dL 32-36 [facility] No Panel InformationOrdered By: Saurabh Fernandez on 11-14-2022 Estimated GFR (MDRD) Amer 84 mL/min >60 [facility] Comment on above: GFR Calc Estimated GFR (MDRD) Non-Af Amer 70 mL/min >60 [facility] Comment on above: Non- GFR Calc Thyroid Stimulating Hormone (TSH) 3.57 uIU/mL 0.358-3.74 [facility] Platelets bldOrdered By: Ambreen Fernandez on 11-14-2022 Platelets (Bld) [#/Vol] 209 10*3/uL 150-450 [facility] Serum or plasma albumin tyrese urement (mass/volume)Ordered By: Saurabh Fernandez on 11-14-2022 Albumin [Mass/Vol] 2.5 g/dL 3.2-5.0 [facility] Serum or plasma albumin/glob ulin mass ratioOrdered By: Saurabh Fernandez on 11-14-2022 Albumin/Globulin [Mass ratio] 0.6 {ratio} 0.9-2.4 [facility] Serum or plasma calcium tyrese urement (mass/volume)Ordered By: Saurabh Fernandez on 11-14-2022 Calcium [Mass/Vol] 8.5 mg/dL 8.5-10.1 [facility] Serum or plasma cholesterol in HDL measurement (mass/volume)Ordered By: Saurabh Fernandez on 11-14-2022 Cholesterol in HDL [Mass/Vol] 48 mg/dL >40 [facility] Comment on above: The drugs N-Acetylcy steine and Metamizole may falsely depress this assay. Reference Range HDL <40 mg/dL Low HDL Cholesterol HDL >or= 60 mg/dL High HDL Cholesterol Serum or plasma cholesterol in VLDL measurement (mass/volume)Ordered By: Saurabh Fernandez on 11-14-2022 Cholesterol in VLDL [Mass/Vol] 25 mg/dL 5-40 [facility] Serum or plasma creatinine m easurement (mass/volume)Ordered By: Saurabh Fernandez on 11-14-2022 Creatinine [Mass/Vol] 0.84 mg/dL 0.55-1.02 [facility] Comment on above: The validity of the calculated GFR & GFRAA in patients over 70 years has not been determined. Clinical correlation is essential. Serum or plasma low density lipoprotein (LDL) cholesterol measurement (mass/volume)Ordered By: Saurabh Fernandez on 11-14-2022 Cholesterol in LDL [Mass/Vol] 106 mg/dL 0-130 [facility] Serum or plasma urea nitroge n measurement (mass/volume)Ordered By: Saurabh Fernandez on 11-14-2022 Urea nitrogen [Mass/Vol] 21 mg/dL 7-18 [facility] Thin prep Papanicolaou smear with manual screeningOrdered By: Saurabh Fernandez on 11-14-2022 Thin prep Papanicolaou smear with manual screening 21 U/L 15-37 [facility] Thin prep Papanicolaou smear with manual screening 5 5-15 [facility] No Panel InformationOrdered By: Saurabh Fernandez on 10-21-2022 Valproic Acid (Depakene) Level 31 ug/mL 50-100 [facility] Progress Noteon 08-28-2022 Progress Note Patient [...] to 10 mg daily for prophylaxis Normal [facility] Absolute lymphocyte countOrd ered By: Harpal Ramirez on 08-23-2022 Lymphocytes Auto (Unsp spec) [#/Vol] 2.14 10*3/uL 0.83-4.51 [facility] Basophil percentageOrdered B y: Harpal Ramirez on 08-23-2022 Basophils/100 WBC (Bld) 0.6 % 0-1 [facility] Eosinophils/100 WBC (Bld) 4.1 % 0-5 [facility] Neutrophils (Bld) [#/Vol] 3.5 10*3/uL 2.0-7.7 [facility] Neutrophils/100 WBC (Bld) 53.2 % 47-70 [facility] WBC (Bld) [#/Vol] 6.6 10*3/uL 4.4-11.0 [facility] Blood erythrocytes count (nu mber/volume)Ordered By: Harpal Ramirez on 08-23-2022 RBC (Bld) [#/Vol] 3.84 10*6/uL 4.2-5.4 [facility] hemoglobin measurement (mass/volume)Ordered By: Harpal Ramirez on 08-23-2022 Hemoglobin (Bld) [Mass/Vol] 11.7 g/dL 12.0-15.0 [facility] Blood lymphocytes/100 leukoc ytesOrdered By: Harpal Ramirez on 08-23-2022 Lymphocytes/100 WBC (Bld) 32.5 % 19-41 [facility] Blood monocytes/100 leukocyt esOrdered By: Harpal Ramirez on 08-23-2022 Monocytes/100 WBC (Bld) 9.1 % 0-10 [facility] Blood platelet mean volumeOr dered By: Harpal Ramirez on 08-23-2022 Platelet mean volume (Bld) [Entitic vol] 11.5 fL 6.2-12.0 [facility] Determination of erythrocyte mean corpuscular volume (MCV)Ordered By: Harpal Ramirez on 08-23-2022 MCV (RBC) [Entitic vol] 96.6 fL 81-99 [facility] Hematocrit Auto (Bld) [Volum e fraction]Ordered By: Harpal Ramirez on 08-23-2022 Hematocrit (Bld) [Volume fraction] 37.1 % 37-47 [facility] Laboratory - Hematology and Cell countsOrdered By: Harpal Ramirez on 08-23-2022 Erythrocyte distribution width (RBC) [Entitic vol] 50.7 fL 35.1-43.9 [facility] Erythrocyte distribution width (RBC) [Ratio] 14.4 % 11.6-14.6 [facility] Immature granulocytes/100 WBC (Bld) 0.500 % 0.0-0.9 [facility] Comment on above: IG% - Immature Granu locytes (promyelocytes, myelocytes and metamyelocytes) > 1% indicates that a LEFT SHIFT is Present. MCH (RBC) [Entitic mass] 30.5 pg 27.0-32.0 [facility] Nucleated RBC/100 WBC (Bld) [Ratio] 0 % 0-5 [facility] MCHC Auto (RBC) [Mass/Vol]Or dered By: Harpal Ramirez on 08-23-2022 MCHC (RBC) [Mass/Vol] 31.5 g/dL 32-36 [facility] Platelets bldOrdered By: Kanu Ramirez on 08-23-2022 Platelets (Bld) [#/Vol] 226 10*3/uL 150-450 [facility] 36on 08-22-2022 36 Last seen:11/28/21 [facility] Basophil percentageOrdered B y: Harpal James on 08-22-2022 Bilirubin [Mass/Vol] 0.60 mg/dL 0.20-1.00 [facility] Comment on above: For patients on eltr ombopag therapy, use of Dimension [place] TBIL is not recommended. Chloride [Moles/Vol] 105 mmol/L 98-107 [facility] Cholesterol [Mass/Vol] 189 mg/dL <200 [facility] Comment on above: <200 mg/dL Desirable 200-240 mg/dL Borderline >240 mg/dL High Risk Glucose [Mass/Vol] 83 mg/dL 74-106 [facility] Potassium [Moles/Vol] 4.1 mmol/L 3.5-5.1 [facility] Protein [Mass/Vol] 7.6 g/dL 6.4-8.2 [facility] Sodium [Moles/Vol] 140 mmol/L 136-145 [facility] Triglyceride [Mass/Vol] 121 mg/dL <199 [facility] Comment on above: The drugs N-Acetylcy steine and Metamizole may falsely depress this assay.Serum Triglycerides Reference Interval Normal <150 mg/dL Borderline high 150 - 199 mg/dL High 200 - 499 mg/dL Very High > or = 500 mg/dL Laboratory - Chemistry and C hemistry - challengeOrdered By: Harpal Ramirez on 08-22-2022 ALP [Catalytic activity/Vol] 75 U/L 45-117 [facility] ALT [Catalytic activity/Vol] 28 U/L 13-56 [facility] CO2 [Moles/Vol] 30.0 mmol/L 21.0-32.0 [facility] Globulin (S) [Mass/Vol] 4.5 g/dL 2.2-4.2 [facility] Urea nitrogen/Creatinine [Mass ratio] 28.4 mg/mg 10-20 [facility] No Panel InformationOrdered By: Harpal Ramirez on 08-22-2022 Estimated GFR (MDRD) Amer 70 mL/min >60 [facility] Comment on above: GFR Calc Estimated GFR (MDRD) Non-Af Amer 58 mL/min >60 [facility] Comment on above: Non- GFR Calc Thyroid Stimulating Hormone (TSH) 2.50 uIU/mL 0.358-3.74 [facility] Serum or plasma albumin tyrese urement (mass/volume)Ordered By: Harpal Ramirez on 08-22-2022 Albumin [Mass/Vol] 3.1 g/dL 3.2-5.0 [facility] Serum or plasma albumin/glob ulin mass ratioOrdered By: Harpal Ramirez on 08-22-2022 Albumin/Globulin [Mass ratio] 0.7 {ratio} 0.9-2.4 [facility] Serum or plasma calcium tyrese urement (mass/volume)Ordered By: Harpal Ramirez on 08-22-2022 Calcium [Mass/Vol] 9.1 mg/dL 8.5-10.1 [facility] Serum or plasma cholesterol in HDL measurement (mass/volume)Ordered By: Harpal Ramirez on 08-22-2022 Cholesterol in HDL [Mass/Vol] 62 mg/dL >40 [facility] Comment on above: The drugs N-Acetylcy steine and Metamizole may falsely depress this assay. Reference Range HDL <40 mg/dL Low HDL Cholesterol HDL >or= 60 mg/dL High HDL Cholesterol Serum or plasma cholesterol in VLDL measurement (mass/volume)Ordered By: Harpal Ramirez on 08-22-2022 Cholesterol in VLDL [Mass/Vol] 24 mg/dL 5-40 [facility] Serum or plasma creatinine m easurement (mass/volume)Ordered By: Harpal Ramirez on 08-22-2022 Creatinine [Mass/Vol] 0.98 mg/dL 0.55-1.02 [facility] Comment on above: The validity of the calculated GFR & GFRAA in patients over 70 years has not been determined. Clinical correlation is essential. Serum or plasma low density lipoprotein (LDL) cholesterol measurement (mass/volume)Ordered By: Harpal Ramirez on 08-22-2022 Cholesterol in LDL [Mass/Vol] 103 mg/dL 0-130 [facility] Serum or plasma urea nitroge n measurement (mass/volume)Ordered By: Harpal Ramirez on 08-22-2022 Urea nitrogen [Mass/Vol] 28 mg/dL 7-18 [facility] Thin prep Papanicolaou smear with manual screeningOrdered By: Harpal Ramirez on 08-22-2022 Thin prep Papanicolaou smear with manual screening 19 U/L 15-37 [facility] Thin prep Papanicolaou smear with manual screening 5 5-15 [facility] No Panel InformationOrdered By: Harpal Ramirez on 07-29-2022 Valproic Acid (Depakene) Level 38 ug/mL 50-100 [facility] Absolute lymphocyte countOrd ered By: Harpal Ramirez on 07-24-2022 Lymphocytes Auto (Unsp spec) [#/Vol] 2.39 10*3/uL 0.83-4.51 [facility] Basophil percentageOrdered B y: Harpal Ramirez on 07-24-2022 Basophils/100 WBC (Bld) 1.0 % 0-1 [facility] Chloride [Moles/Vol] 112 mmol/L 98-107 [facility] Eosinophils/100 WBC (Bld) 9.2 % 0-5 [facility] Glucose [Mass/Vol] 77 mg/dL 74-106 [facility] Neutrophils (Bld) [#/Vol] 2.3 10*3/uL 2.0-7.7 [facility] Neutrophils/100 WBC (Bld) 39.3 % 47-70 [facility] Potassium [Moles/Vol] 4.3 mmol/L 3.5-5.1 [facility] Comment on above: Slight Hemolysis, Re sult may be falsely increased. Sodium [Moles/Vol] 142 mmol/L 136-145 [facility] WBC (Bld) [#/Vol] 5.7 10*3/uL 4.4-11.0 [facility] Blood erythrocytes count (nu mber/volume)Ordered By: Harpal Ramirez on 07-24-2022 RBC (Bld) [#/Vol] 4.17 10*6/uL 4.2-5.4 [facility] Blood hemoglobin measurement (mass/volume)Ordered By: Harpal Ramirez on 07-24-2022 Hemoglobin (Bld) [Mass/Vol] 13.1 g/dL 12.0-15.0 [facility] Blood lymphocytes/100 leukoc ytesOrdered By: Harpal Ramirez on 07-24-2022 Lymphocytes/100 WBC (Bld) 41.6 % 19-41 [facility] Blood monocytes/100 leukocyt esOrdered By: Harpal Ramirez on 07-24-2022 Monocytes/100 WBC (Bld) 8.4 % 0-10 [facility] Blood platelet mean volumeOr dered By: Harpal Ramirez on 07-24-2022 Platelet mean volume (Bld) [Entitic vol] 11.5 fL 6.2-12.0 [facility] Determination of erythrocyte mean corpuscular volume (MCV)Ordered By: Harpal Ramirez on 07-24-2022 MCV (RBC) [Entitic vol] 99.0 fL 81-99 [facility] Hematocrit Auto (Bld) [Volum e fraction]Ordered By: Harpal Ramirez on 07-24-2022 Hematocrit (Bld) [Volume fraction] 41.3 % 37-47 [facility] Laboratory - Chemistry and C hemistry - challengeOrdered By: Harpal Ramirez on 07-24-2022 CO2 [Moles/Vol] 25.0 mmol/L 21.0-32.0 [facility] Urea nitrogen/Creatinine [Mass ratio] 24.3 mg/mg 10-20 [facility] Laboratory - Hematology and Cell countsOrdered By: Harpal Ramirez on 07-24-2022 Erythrocyte distribution width (RBC) [Entitic vol] 54.2 fL 35.1-43.9 [facility] Erythrocyte distribution width (RBC) [Ratio] 14.8 % 11.6-14.6 [facility] Immature granulocytes/100 WBC (Bld) 0.500 % 0.0-0.9 [facility] Comment on above: IG% - Immature Granu locytes (promyelocytes, myelocytes and metamyelocytes) > 1% indicates that a LEFT SHIFT is Present. MCH (RBC) [Entitic mass] 31.4 pg 27.0-32.0 [facility] Nucleated RBC/100 WBC (Bld) [Ratio] 0 % 0-5 [facility] MCHC Auto (RBC) [Mass/Vol]Or dered By: Harpal Ramirez on 07-24-2022 MCHC (RBC) [Mass/Vol] 31.7 g/dL 32-36 [facility] No Panel InformationOrdered By: Harpal Ramirez on 07-24-2022 Estimated GFR (MDRD) Amer 66 mL/min >60 [facility] Comment on above: GFR Calc Estimated GFR (MDRD) Non-Af Amer 55 mL/min >60 [facility] Comment on above: Non- GFR Calc Thyroid Stimulating Hormone (TSH) 2.63 uIU/mL 0.358-3.74 [facility] Platelets bldOrdered By: Kanu nely James on 07-24-2022 Platelets (Bld) [#/Vol] 201 10*3/uL 150-450 [facility] Progress Noteon 07-24-2022 Progress Note See Scanned Progress Notes Normal [facility] Serum or plasma calcium tyrese urement (mass/volume)Ordered By: Harpal Ramirez on 07-24-2022 Calcium [Mass/Vol] 8.5 mg/dL 8.5-10.1 [facility] Serum or plasma creatinine m easurement (mass/volume)Ordered By: Harpal Ramirez on 07-24-2022 Creatinine [Mass/Vol] 1.03 mg/dL 0.55-1.02 [facility] Comment on above: The validity of the calculated GFR & GFRAA in patients over 70 years has not been determined. Clinical correlation is essential. Serum or plasma urea nitroge n measurement (mass/volume)Ordered By: Harpal Ramirez on 07-24-2022 Urea nitrogen [Mass/Vol] 25 mg/dL 7-18 [facility] Thin prep Papanicolaou smear with manual screeningOrdered By: Harpal Ramirez on 07-24-2022 Thin prep Papanicolaou smear with manual screening 5 5-15 [facility] CASE MANAGEMon 06-24-2022 CASE MANAGEM HNO ID: [id number] Author: LATRICE Munoz Service: Social Work Author Type: Roofing Laborer Type: Care Mgt Progress Note Filed: 06/24/2022 1:34 PM Note Text: BEHAVIORAL HEALTH SOCIAL WORK DISCHARGE NOTE SERVICE DATE: 06/24/2022 SERVICE TIME: 10:30 am Discharge Information Row Name Admission (Current) from 06/06/2022 in [facility] Psychiatry Follow-Up Appointment Psychiatrist Name Pt to be followed at facility Guardian/Surrogate Decision Maker Name Daughter Jennifer Hidalgo is POA Discharge Disposition Discharge Disposition Detention Detention Referral Information Agency Name [facility] Address [address], [place] [address] Additional Discharge Information Additional Discharge Resources Jeana: [phone] Patient/Histopath Tech Agreeable With Discharge Plan: Yes FREEDOM OF CHOICE EXPLAINED? Yes. A list of appropriate referrals presented to/discussed with POA on 06/07/22 at 1200 Patient/Histopath Tech Given/Explained Medicare Discharge Notice (IM letter): Yes (Date and Time): 06/06/22 at 11:55 am TRANSPORTATION ARRANGEMENTS: Mode of Transportation: Ambulance Transportation Agency and Phone #: [facility] [phone] . Date of Trip: 06/24/22 Type of Service: BLS Non-emergency Is Patient Medicaid Pending: No PRESCRIPTIONS FILLED PRIOR TO DISCHARGE: No, patient discharged to [facility] ADDITIONAL NOTES: SW discussed Pt in treatment team and observed her on unit. No acute safety concerns at this time, no SI/HI/SIB or AVH. Family is aware and agreeable to discharge plan above. No further SW intervention required, per MD Pt is adequate for discharge. SIGNATURE: LATRICE Munoz PATIENT NAME: Chay Teague DATE: June 24, 2022 TIME: 11:00 AM [facility] CNDSon 06-24-2022 [facility] HNO ID: [id number] Author: John Penny MD Service: Psychiatry Author [...] performed Hospital Course: Patient was admitted to [facility] after she appeared to [facility] for wandering behavior; behavioral disturbances; was found to suffer UTI, received IV Rocephin. Patient brought in from home by family for confusion, suffered frontal lobe dementia and multiple medical problems, countdown to suffer UTI. Daughter brought the patient to the ED. Daughter is power of real estate associate attorney after she contacted by the local [...] is on a waiting list for [facility]. 06/07/2022 Seen in day area Said she [...] Patient Condition @ Discharge: Stable Discharge Disposition: Penitentiary Facility Complications: None ASSESSMENT: The status of [...] (Oral) Resp 18 (more content not included)... [facility] NURSING PROGon 06-24-2022 NURSING PROG HNO ID: [id number] Author: Robyn Roman RN Service: ? Author Type: Registered Nurse Type: Nursing Progress Note Filed: 06/24/2022 2:21 PM Note Text: Daily Note: Pt in day area at change of shift, meal and medication compliant. She will be discharged today, food writer attempted multiple time to call facility however was left on hold then disconnected. Broset Score-0 [facility] NURSING PROG HNO ID: [id number] Author: Zelda Serrano RN Service: Behavioral Health Author Type: Registered Nurse Type: Nursing Progress Note Filed: 06/24/2022 6:19 AM Note Text: Other: Pt is resting quietly in bed; monitor for safety q 15 min. Broset 1 0600 pt slept 7 hrs [facility] NURSING [facility] ID: [id number] Author: Albert Bryan RN Service: Behavioral Health [...] 15 minutes rounds observed at all times. [facility] NURSING PROGon 06-23-2022 NURSING [facility] ID: [id number] Author: Wesley Espinal RN Service: Nursing Author [...] pleasant. Broset:2 Q15 minute safety checks maintained [facility] NURSING [facility] ID: [id number] Author: Albert Bryan, LENIN Service: Behavioral Health [...] calm and pleasant. Will continue to monitor. [facility] NURSING PROGon 06-22-2022 NURSING [facility] ID: [id number] Author: Robyn Roman RN Service: ? Author Type: Registered Nurse Type: Nursing Progress Note Filed: 06/22/2022 6:44 PM Note Text: Daily Note: Pt in bed at change of shift,meal and medication compliant, pt behavior is in control for most of the shift, she has been yelling out but easily redirectable. Broset Score-0 [facility] NURSING [facility] ID: [id number] Author: Mar Barros RN Service: Nursing Author [...] area reading a magazine, in good spirits. [facility] CASE MANAGEMon 06-21-2022 CASE MANAGEM HNO ID: [id number] Author: LATRICE Munoz Service: Social Work Author Type: Roofing Laborer Type: Care Mgt Progress Note Filed: 06/21/2022 1:20 PM Note Text: BEHAVIORAL HEALTH SOCIAL WORK PROGRESS NOTE SERVICE DATE: 06/21/2022 SERVICE TIME: 1320 Pt is scheduled for discharge on Friday06/24/22 to [facility]. Transport is scheduled for 2:00 pm via [facility] (trip #[id number]). Pt will need LOC and SW to submit for one on Friday morning prior to discharge. SW to follow. SIGNATURE: LATRICE Munoz PATIENT NAME: Chay Teague DATE: June 21, 2022 TIME: 8:53 AM [facility] [facility] NURSING PROGon 06-21-2022 NURSING PROG HNO ID: [id number] Author: Teo López RN Service: Behavioral Health [...] 15 min safety checks maintained. Will monitor. [facility] NURSING PROG HNO ID: [id number] Author: Taylor North RN Service: Nursing Author Type: Registered Nurse Type: Nursing Progress Note Filed: 06/21/2022 7:06 AM Note Text: Nursing Progress Note Patient Name: Chay Teague Patient Location: [id number] Daily Note: Received report and assumed [...] This note was completed by: Taylor North [facility] CASE MANAGEMon 06-20-2022 CASE MANAGEM HNO ID: [id number] Author: LATRICE Munoz Service: Social Work Author Type: Roofing Laborer Type: Care Mgt Progress Note Filed: 06/20/2022 2:18 PM Note Text: BEHAVIORAL HEALTH SOCIAL WORK PROGRESS NOTE SERVICE DATE: 06/20/2022 SERVICE TIME: 1:30 pm SW faxed updates to [facility] and spoke to director digital strategy Estephania on the phone to notify of plan for discharge on Friday. SW to confirm discharge projection and schedule transportation. SW to follow. SIGNATURE: LATRICE Munoz PATIENT NAME: Chay Teague DATE: June 20, 2022 TIME: 2:17 PM [facility] NURSING PROGon 06-20-2022 NURSING PROG HNO ID: [id number] Author: Melisa Peña RN Service: Behavioral Health [...] cooperative with hands on care. Will monitor [facility] NURSING PROG HNO ID: [id number] Author: Zelda Serrano RN Service: Behavioral Health [...] am care completed then pt resumed sleeping. [facility] [id number] Author: Nakul Allan RN Service: ? Author [...] observation. No additional issues at this time. [facility] NURSING PROGon 06-19-2022 NURSING [facility] ID: [id number] Author: Teo López RN Service: Behavioral Health [...] continence. Assist x1 for ambulation. Pt is [place]. Pt medication compliant whole with applesauce constant encouragement. No behavioral issues noted at this moment. No agitation noted. 15 min safety checks maintained. Will monitor [facility] NURSING [facility] ID: [id number] Author: Vitaliy Basurto RN Service: Nursing Author Type: Registered Nurse Type: Nursing Progress Note Filed: 06/19/2022 7:58 AM Note Text: Other: 2100 Pt was seen awake and pleasant upon approach sitting in a christine-chair in the day area but a little irritable when vital signs were taken. Pt is confused, [place] and needs constant cuing and encouragement with [...] after diaper changed. 0700 Slept 7 hrs. [facility] CASE MANAGEMon 06-18-2022 CASE MANAGEM HNO ID: [id number] Author: LATRICE Munoz Service: Social Work Author Type: Roofing Laborer Type: Care Mgt Progress Note Filed: 06/18/2022 10:50 AM Note Text: BEHAVIORAL HEALTH SOCIAL WORK PROGRESS NOTE SERVICE DATE: 06/18/2022 SERVICE TIME: 0900 SW provided update to Pt's daughter Rachel Riojas ([phone]) as Pt's other daughter, Jennifer Hidalgo, is on vacation this week. Pt unable to discharge until at least 06/22/22 when new insurance (in network with [facility]) goes into effect. SW to follow. SIGNATURE: LATRICE Munoz PATIENT NAME: Chay Teague DATE: June 18, 2022 TIME: 9:18 AM [facility] NURSING PROGon 06-18-2022 NURSING PROG HNO ID: [id number] Author: Teo López RN Service: Behavioral Health [...] Tremors noted. Appetite is good. Pt is [place]. A/O to self pleasantly confused. No behavioral issues noted. 15 min safety checks maintained. Will monitor. [facility] NURSING PROG HNO ID: [id number] Author: Taylor North RN Service: Nursing Author Type: Registered Nurse Type: Nursing Progress Note Filed: 06/18/2022 6:07 AM Note Text: Nursing Progress Note Patient Name: Chay Teague Patient Location: [id number] Daily Note: Received report and assumed [...] This note was completed by: [facility] THERAPY NTon 06-18-2022 THERAPY NT HNO ID: [id number] Author: Bre Roberts, PT Service: Physical Therapy Author Type: Physical Therapist Type: Therapy (PT/OT/Speech/Resp) Filed: 06/18/2022 4:15 PM Note Text: Physical Therapy Treatment SERVICE DATE: 06/18/2022 SERVICE TIME: 1514 to 1541 ROOM: [id number] Recommended Discharge Disposition: Subacute/SNF Recommended Discharge Disposition [...] Past Medical History: advanced age, BMI 34.17; [place], HTN, asthma, hypothyroid, dementia, anxiety/depression Response to [...] family checks in at night. Assistance Available: daytime caregiver Prior Functional Level: Required Assistance Assistance Required [...] minimal verbalizations, limited engagement due to significant [place]ALK[place]; states name and CURRENT FUNCTIONAL STATUS: Most [...] resolve all f (more content not included)... [facility] NURSING PROGon 06-17-2022 NURSING PROG HNO ID: [id number] Author: Melisa Peña RN Service: Behavioral Health [...] calm and cooperative will monitor broset 1 [facility] NURSING PROG HNO ID: [id number] Author: Vitaliy Basurto RN Service: Nursing Author [...] 8 hrs. Cooperative with hands on care. [facility] NURSING PROGon 06-16-2022 NURSING PROG HNO ID: [id number] Author: Manda Proctor RN Service: Nursing Author [...] visit this afternoon. Will continue to monitor. [facility] NURSING PROG HNO ID: [id number] Author: Vitaliy Basurto RN Service: Nursing Author [...] Broset -1. 0700 Slept for 7 hrs. [facility] NURSING PROGon 06-15-2022 NURSING PROG HNO ID: [id number] Author: Soniya Hubbard RN Service: Nursing Author Type: Registered Nurse Type: Nursing Progress Note Filed: 06/15/2022 1:54 PM Note Text: Nursing Progress Note Topic of Note: Daily Note Chay Teague [id number] Assumed care of the pt at 0700. The pt is AANDOX1, confused and forgetful. Pt C/O no pain or discomfort at this time. The pt is disruptive at times calling out "please help me help me " while tapping on the table. Pt is redirectable. The pt is medication compliant whole. The pt is pleasant on approach.the pt is [place]. The pt is an assist for all care. The pt is incontinent. Pt up in the day area for close monitoring. 15 min safety checks maintained. Will continue to monitor. This note was completed by: Soniya Hubbard [facility] CASE MANAGEMon 06-14-2022 CASE MANAGEM HNO ID: [id number] Author: LATRICE Munoz Service: Social Work Author Type: Roofing Laborer Type: Care Mgt Progress Note Filed: 06/14/2022 2:38 PM Note Text: BEHAVIORAL HEALTH SOCIAL WORK PROGRESS NOTE SERVICE DATE: 06/14/2022 SERVICE TIME: 1320 SW called Estephania in [facility] admissions ([phone]) and provided detailed update. SW to await return phone call. No specific discharge date identified at this time. SW to follow. Update 1430: ASHLEY received return call from facility stating that admission would have to wait until appropriate insurance is in place on 06/22/22. SIGNATURE: LATRICE Munoz PATIENT NAME: Chay Teague DATE: June 14, 2022 TIME: 8:31 AM [facility] NURSING PROGon 06-14-2022 NURSING PROG HNO ID: [id number] Author: Mendez Nguyen RN Service: ? Author [...] Date: June 14, 2022 Time: 9:26 PM [facility] NURSING PROG HNO ID: [id number] Author: Corrina Chandler RN Service: Nursing Author Type: Registered Nurse Type: Nursing Progress Note Filed: 06/14/2022 7:07 PM Note Text: Other: Pt. Is visible on this unit. No s/s of distress noted. Compliant with medications. Continues to be confused. Constantly asking staff for help and if she's ok. Fair appetite for meals. Will continue to monitor. [facility] NURSING PROG HNO ID: [id number] Author: Albert Bryan RN Service: Behavioral Health [...] this time asleep. Will continue to monitor. [facility] CASE MANAGEMon 06-13-2022 CASE MANAGEM HNO ID: [id number] Author: LATRICE Munoz Service: Social Work Author Type: Roofing Laborer Type: Care Mgt Progress Note Filed: 06/13/2022 [...] Daughter was able to complete enrollment for [facility] dual advantage, effective date 06/22/22. SW to update facility and determine particulars of admission policy regarding future coverage. SW to follow. SIGNATURE: LATRICE Munoz PATIENT NAME: Chay Teague DATE: June 13, 2022 TIME: 11:10 AM [facility] NURSING PROGon 06-13-2022 NURSING PROG HNO ID: [id number] Author: Melisa Peña, LENIN Service: Behavioral Health Author Type: Registered [...] visit this yudith will monitor broset 2 [facility] NURSING PROG HNO ID: [id number] Author: Vitaliy Basurto RN Service: Nursing Author Type: Registered Nurse Type: Nursing Progress Note Filed: 06/13/2022 6:07 AM Note Text: Other: 0000 Assumed care of pt. Received pt sleeping in bed, no signs of distress noted. No behavioral issue noted. Safety precautions maintained. 0700 Pt slept well for 9 hrs throughout the night. Behavior in control. Broset -1 (confused) [facility] NUTRITIONon 06-13-2022 NUTRITION HNO ID: [id number] Author: Yoly Pan RD Service: Nutrition Therapy [...] DATE: June 13, 2022 TIME: 1:14 PM [facility] CASE MANAGEMon 06-12-2022 CASE MANAGEM HNO ID: [id number] Author: LATRICE Munoz Service: Social Work Author Type: Roofing Laborer Type: Care Mgt Progress Note Filed: 06/12/2022 1:50 PM Note Text: BEHAVIORAL HEALTH SOCIAL WORK PROGRESS NOTE SERVICE DATE: 06/12/2022 SERVICE TIME: 1200 SW faxed clinicals to [facility]. special programs director informed that they are not in network with [place] Medicaid and only have wanderguard. ASHLEY called Pt's daughter to update and she states that she will apply for [facility] Medicaid and that [facility] remain their first FOC. ASHLEY updated facility as to same. SIGNATURE: LATRICE Munoz PATIENT NAME: Chay Teague DATE: June 12, 2022 TIME: 1:19 PM [facility] NURSING PROGon 06-12-2022 NURSING PROG HNO ID: [id number] Author: Leticia Barker RN Service: Nursing Author [...] given. Broset-1, will continue assault, fall precs. [facility] NURSING PROG HNO ID: [id number] Author: Iva Bailey RN Service: Behavioral Health [...] are noted, anxious, Will cont to monitor. [facility] NURSING PROG HNO ID: [id number] Author: Gilbert Watson RN Service: ? Author [...] yelling this morning while in day area. [facility] CASE MANAGEMon 06-11-2022 CASE MANAGEM HNO ID: [id number] Author: LATRICE Munoz Service: Social Work Author Type: Roofing Laborer Type: Care Mgt Progress Note Filed: 06/11/2022 1:50 PM Note Text: BEHAVIORAL HEALTH SOCIAL WORK PROGRESS NOTE SERVICE DATE: 06/11/2022 SERVICE TIME: 1300 SW received return call from Estephania in admissions at [facility]. She states that Pt would be coming LTC and would need a PAS (SW submitted for one and received favorable determination). She provided fax: [phone] for clinical information and her work cell for updates: [phone]. ASHLEY to send updated information. SAHLEY to follow. SIGNATURE: LATRICE Munoz PATIENT NAME: Chay Teague DATE: June 11, 2022 TIME: 9:17 AM [facility] NURSING PROGon 06-11-2022 NURSING PROG HNO ID: [id number] Author: Melisa Peña RN Service: Behavioral Health [...] bm. Pt calm and cooperative will monitor [facility] NURSING PROG HNO ID: [id number] Author: Taylor North RN Service: Nursing Author Type: Registered Nurse Type: Nursing Progress Note Filed: 06/11/2022 6:16 AM Note Text: Nursing Progress Note Patient Name: Chay Teague Patient Location: [id number] Daily Note: Received report and assumed care of patient at 1900. Patient seen in day area in christine chair. Pleasantly confused. Friendly with other patients and staff. Can be intrusive at times, observed patting other Patient's knee. Polishing Wheel Repairer redirected Patient and educated on appropriate behavior. Patient cooperative with teaching. Med compliant whole in applesauce, but did spit out Colace gel capsule several times due to confusion. Denies pain. Assist of 1 to room. Safety maintained. 0600 Patient slept 5 hrs, Broset-1. This note was completed by: Taylor North [facility] THERAPY NTon 06-11-2022 THERAPY NT HNO ID: [id number] Author: Amarilys Salguero PTA Service: Physical Therapy Author Type: Technical Account Representative Type: Therapy (PT/OT/Speech/Resp) Filed: 06/11/2022 1:16 PM Note Text: ----- Attestation signed by Lisa Perez, PT at 06/11/2022 1:24 PM I reviewed and agree with the documentation corresponding to this therapy visit. SIGNATURE: Lisa Perez, PT DATE: June 11, 2022 TIME: 1:24 PM ----- Physical Therapy Treatment SERVICE DATE: 06/11/2022 SERVICE TIME: 1155 to 1220 ROOM: [place] [address] Recommended Discharge Disposition: Home PT Recommended Discharge [...] family checks in at night. Assistance Available: daytime caregiver Prior Functional Level: Required Assistance Assistance Required [...] Potential: Go (more content not included)... Normal [facility] Valproate SerPl-mCncon 06-11 Valproate [Mass/Vol] 49.5 ug/mL Low 50.0-100.0 [facility] Comment on above: Order Comment: Speci men Type: BLOOD SPECIMENOrdering Facility: [facility] Address: [address] [place] [phone] Result Comment: Refe rence ranges and high/low indicator flags are provided as general guidelines only. The treating physician must determine appropriate target levels/dosing based on the specific clinical situation. Performed By: #### 4 086-5 ####[facility] LABORATORYCLIA [id number] [place] [id number] [facility] CASE MANAGEMon 06-10-2022 CASE MANAGEM HNO ID: [id number] Author: LATRICE Munoz Service: Social Work Author Type: Roofing Laborer Type: Care Mgt Progress Note Filed: 06/10/2022 2:07 PM Note Text: BEHAVIORAL HEALTH SOCIAL WORK PROGRESS NOTE SERVICE DATE: 06/10/2022 SERVICE TIME: 1300 SW placed call to [facility] admission department. SW informed admission director [...] DATE: June 10, 2022 TIME: 2:05 PM [facility] NURSING PROGon 06-10-2022 NURSING PROG HNO ID: [id number] Author: Melisa Peña RN Service: Behavioral Health Author Type: Registered Nurse Type: Nursing Progress Note Filed: 06/10/2022 5:20 PM Note Text: Other: nursing [id number] was up on the unit seated in [...] cooperative with hands on care will monitor [facility] NURSING PROGon 06-09-2022 NURSING PROG HNO ID: [id number] Author: Mendez Nguyen RN Service: ? Author [...] Date: June 09, 2022 Time: 9:49 PM [facility] NURSING PROG HNO ID: [id number] Author: Teo López RN Service: Behavioral Health [...] 15 min safety checks maintained. Will monitor. [facility] NURSING PROGon 06-08-2022 NURSING PROG HNO ID: [id number] Author: Mendez Nguyen RN Service: ? Author [...] Date: June 08, 2022 Time: 10:32 PM [facility] NURSING PROG HNO ID: [id number] Author: Gilbert Watson RN Service: ? Author [...] remained cooperative with care, incontinent of bladder. [facility] CASE MANAGEMon 06-07-2022 CASE MANAGEM HNO ID: [id number] Author: LATRICE Munoz Service: Social Work Author Type: Roofing Laborer Type: Care Mgt Progress Note Filed: 06/07/2022 12:14 PM Note Text: BEHAVIORAL HEALTH SOCIAL WORK PROGRESS NOTE SERVICE DATE: 06/07/2022 SERVICE TIME: 12:00 pm Pt discussed in treatment team and observed on unit. Pt does appear more alert and organized than on previous day. She will remain inpatient through the weekend. SW to submit PAS on Friday (06/10/22) and follow units with [facility] with updated clinical information. SW to follow. SIGNATURE: LATRICE Munoz PATIENT NAME: Chay Teague DATE: June 07, 2022 TIME: 8:42 AM [facility] Lipid 1996 panelon 2 Cholesterol [Mass/Vol] 217 mg/dL High <200 [facility] Comment on above: Order Comment: Speci men Type: BLOOD SPECIMENOrdering Facility: [facility] Address: [address] [place], [place] [id number] Result Comment: <200 mg/dL, Desirable 200-239 mg/dL, Borderline high >239 mg/dL, High Performed By: #### 2 4331-1 ####[facility] LABORATORYCLIA [id number] [place] [address] [place] Cholesterol in HDL [Mass/Vol] 75 mg/dL Normal >39 [facility] Comment on above: Order Comment: Speci men Type: BLOOD SPECIMENOrdering Facility: [facility] Address: [address] [place] [phone] Result Comment: 40-5 9 mg/dL, Acceptable >59 mg/dL, High: Negative risk factor for coronary heart disease <40 mg/dL, Low: Positive risk factor for coronary heart disease Performed By: #### 2 4331-1 ####[facility] LABORATORYCLIA [id number] [place] [id number] [place] Cholesterol in LDL [Mass/Vol] 124 mg/dL High <100 [facility] Comment on above: Order Comment: Speci men Type: BLOOD SPECIMENOrdering Facility: [facility] Address: [address] [place] [address] Result Comment: <100 mg/dL, Optimal 100-129 mg/dL, Near optimal/above optimal 130-159 mg/dL, Borderline high 160-189 mg/dL, High >189 mg/dL, Very high Secondary prevention optimal LDL Cholesterol levels are recommended to be < 70 mg/dL Performed By: #### 2 4331-1 ####[facility]ORATORYCLIA [id number] [address] Cholesterol in LDL/Cholesterol in HDL [Mass ratio] 1.65 {ratio} Normal <2.54 [facility] Comment on above: Order Comment: Speci men Type: BLOOD SPECIMENOrdering Facility: [facility] Address: [address] [place] [address] Result Comment: Refe rence: 1. National Cholesterol Education Program ATP III Guideline At-A-Glance Quick Desk Reference: National Heart, Lung, and Blood Butler. National Institutes of Health. 2001: NIH Publication No. 01-3305. 2. An International Atherosclerosis Society position paper: global recommendations for the management of dyslipidemia: executive summary, Atherosclerosis. 2014: 232(2):410-413. Performed By: #### 2 4331-1 ####[facility]ORATORYCLIA [id number] [address] STATES [facility] Cholesterol in VLDL [Mass/Vol] 18 mg/dL Normal <30 [facility] Comment on above: Order Comment: Speci men Type: BLOOD SPECIMENOrdering Facility: [facility] Address: [address] [place] [address] Performed By: #### 2 4331-1 ####[facility]ORATORYCLIA [id number] [address] [place] Cholesterol non HDL [Mass/Vol] 142 mg/dL High <130 [facility] Comment on above: Order Comment: Speci men Type: BLOOD SPECIMENOrdering Facility: [facility] Address: [address] [place] [address] Result Comment: <130 mg/dL, Optimal 130-159 mg/dL, Near optimal/above optimal 160-189 mg/dL, Borderline high 190-219 mg/dL, High >219 mg/dL, Very high Secondary prevention optimal non HDL Cholesterol levels are recommended to be <100 mg/dL Performed By: #### 2 4331-1 ####[facility]ORATORYCLIA [id number] [address] STATES [facility] Cholesterol.total/Chol esterol in HDL [Mass ratio] 2.89 {ratio} Normal <5.10 [facility] Comment on above: Order Comment: Speci men Type: BLOOD SPECIMENOrdering Facility: [facility] Address: [address] [place] [address] Performed By: #### 2 4331-1 ####[facility]ORATORYCLIA [id number] [address] FASTING TIME 8 hrs Normal [facility] Comment on above: Order Comment: Speci men Type: BLOOD SPECIMENOrdering Facility: [facility] Address: [address] [place] [address] Performed By: #### 2 4331-1 ####[facility]ORATORYCLIA [id number] [address] [facility] Triglyceride [Mass/Vol] 91 mg/dL Normal <150 [facility] Comment on above: Order Comment: Speci men Type: BLOOD SPECIMENOrdering Facility: [facility] Address: [address] [place] [address] Result Comment: <150 mg/dL, Normal 150-199 mg/dL, Borderline high 200-499 mg/dL, High >499 mg/dL, Very high Performed By: #### 2 4331-1 ####[facility]ORATORYCLIA [id number] [address] [place] NURSING PROGon 06-07-2022 NURSING PROG HNO ID: [id number] Author: Teo López RN Service: Behavioral Health [...] MOM given for c/o of constipation. Pt [place], hearing aid on. Pt needs to be fed. Pt answer to every question is "I dont know". Visible tremors on assessment. 15 min safety checks maintained. Will monitor. [facility] NURSING PROG HNO ID: [id number] Author: Gilbert Watson RN Service: ? Author [...] her 0600 medication, remained cooperative with care. [facility] ALLIED HEALTHon 06-06-2022 ALLIED HEALTH HNO ID: [id number] Author: MYRON Talbot Service: Recreational Therapy Author [...] 06, 2022 TIME: 8:26 AM PAGER/CONTACT #: [facility] ALLIED HEALTH HNO ID: [id number] Author: MYRON Talbot Service: Recreational Therapy Author [...] 06, 2022 TIME: 8:20 AM PAGER/CONTACT #: [facility] CASE MGT INIT Michelle 2021 CASE MGT INIT ROSINA HNO ID: [id number] Author: LATRICE Munoz Service: Social Work Author Type: Roofing Laborer Type: Care Mgt Initial Assessment Filed: 06/06/2022 12:23 PM Note Text: BEHAVIORAL HEALTH SOCIAL WORK/CARE MANAGEMENT ASSESSMENT AND DISCHARGE PLAN SERVICE DATE: 06/06/2022 SERVICE TIME: 11:00 am Reason for Admission: Per intake: "Chay Teague is a 77 year old female brought in to [place] ED from Home by family for confusion. [...] not steal the car back for her. Polishing Wheel Repairer attempted interview with pt telephonically. It was [...] information obtained from pt's daughter, Jennifer Hidalgo ([phone]). Daughter reports that pt has underlying dementia, [...] with pt being on the waitlist at [facility]." Legal Status: Involuntary - Medical Certificate and awaiting POA consent Important Contacts: Primary Contact Name: Jennifer Hidalgo / Relationship: Daughter / / Does the patient/credit representative consent to contact with the above [...] Chay Teague was born and raised in [place], [place] by her biological parents. Her childhood [...] Needs: Not on file Health Insurance: PRIMARY: [facility] Medicare SECONDARY: [facility] Medicaid Status (including history of combat experience): None Legal History: Patient/Histopath Tech Denies Presybeterian/Spirituality: Orthodox PSYCHIATRIC HISTORY: None Violence Risk to Self: In the past 6 months have you had thoughts of killing yourself or suicidal ideations? No In the past 6 months, have you made plans/preparations and/or had an intent to act upon these suicidal ideas/thoughts? No Has Patient Been Hospitalized Previously for Psychiatric Reasons? No, Patient/Histopath Tech denies Substance Use and Treatment History: Patient/Histopath Tech Denies Lab Results Negative for Tested Substances Do special considerations/accommodat ions need to be made (i.e. preferred language, literacy, gender identity, physical disability such as deaf or blind, etc)? No, Patient/Histopath Tech Denies Are there practices or beliefs that may affect or influence treatment? No, Patient/Histopath Tech Denies Patient Strengths/Protective Factors (Minimum of Two): Sobriety Stable Housing Stabl (more content not included)... [facility] CONSULTon 06-06-2022 CONSULT HNO ID: [id number] Author: Beba Bray MD Service: ? Author [...] clearance , Pt was transferred to [facility] for further psychiatric treatment. Consultation was obtained [...] No history of dysuria, frequency or incontinence PETROLEUM ANALYST: Negative for abnormal vaginal, bleeding, abnormal vaginal [...] are normal.Teeth and (more content not included)... [facility] ED NOTEon 06-06-2022 ED NOTE HNO ID: [id number] Author: Zaid Cuello RN Service: ? Author Type: Registered Nurse Type: ED Notes Filed: 06/06/2022 3:47 AM Note Text: SBAR report to [facility] transport team, patient care handed off without incident. [facility] ED NOTE HNO ID: [id number] Author: Liz Perry RN Service: ? Author Type: Registered Nurse Type: ED Notes Filed: 06/06/2022 2:37 AM Note Text: Pt report called to Riana spoke with RN. [facility] ED NOTE HNO ID: [id number] Author: Liz Perry RN Service: ? Author Type: Registered Nurse Type: ED Notes Filed: 06/06/2022 12:48 AM Note Text: Intake on the phone with RN about admission. [facility] ED NOTE HNO ID: [id number] Author: Liz Perry RN Service: ? Author Type: Registered Nurse Type: ED Notes Filed: 06/06/2022 12:49 AM Note Text: Pt is still attempting to get out of bed and is restless, MD made aware and medications ordered, [facility] ED NOTE HNO ID: [id number] Author: Liz Perry RN Service: ? Author Type: Registered Nurse Type: ED Notes Filed: 06/06/2022 12:22 AM Note Text: Intake attempted to interview pt. [facility] ED NOTE HNO ID: [id number] Author: Liz Perry RN Service: ? Author Type: Registered Nurse Type: ED Notes Filed: 06/05/2022 10:59 PM Note Text: Intake on the phone with MD [facility] ED NOTE HNO ID: [id number] Author: Liz Perry RN Service: ? Author Type: Registered Nurse Type: ED Notes Filed: 06/05/2022 10:46 PM Note Text: Pts daughter on the phone with intake [facility] ED NOTE HNO ID: [id number] Author: Liz Perry RN Service: ? Author Type: Registered Nurse Type: ED Notes Filed: 06/05/2022 10:02 PM Note Text: Pt is sleeping in bed with call light in reach. Equal chest rise and fall noted with regular respirations. Bed is locked and in the lowest position. No acute distress noted. Safety maintained. Will continue to monitor. [facility] ED PROV NOTEon 06-06-2022 ED PROV NOTE HNO ID: [id number] Author: Mendez Arellano MD Service: Emergency Medicine Author Type: Physician Type: ED Provider Notes Filed: 06/06/2022 4:14 AM Note Text: ED CONTINUATION OF CARE NOTE Code Status: Full Code Assumed care from: Dr Taylor Presentation / Findings / Interventions / Plan / Items to Follow Up: Patient signed out pending admission to geriatric at [facility]. Central intake arrange for patient to be admitted to [facility] geriatric psych and is accepting. ED Course as of 06/06/22413 Others' Documentation FriJun 05, 20222047 ECG Complete W Interpretation ED EKG INTERPRETATION: Normal sinus rhythm at 95 beats per minute Left axis deviation Incomplete right bundle branch block. LVH Nonspecific ST-T changes. No acute injury pattern. Interpretation by ED physician [BT] ED Course User Index [BT] Riccardo Taylor, Clinical Impressions as of 06/06/22413 Confusion Dementia with behavioral disturbance, unspecified dementia type (HCC) Acute cystitis without hematuria SIGNATURE: Mendez Arellano MD PATIENT NAME: Chay Teague DATE: June 06, 2022 TIME: 1:28 AM PAGER/CONTACT #: Mendez Arellano MD 06/06/22413 Normal [facility] HISTORY PHYSICALon HISTORY PHYSICAL HNO ID: [id number] Author: John Penny MD Service: Psychiatry Author Type: Physician Type: HANDP Filed: 06/07/2022 5:42 AM Note Text: [facility] Behavioral Health Admit Note ORIGINATOR: John Penny MD CHAY [place] ACCTNUM: [id number] SERVICE: [facility] LOCATION: [place] [address] ATTENDING PHYSICIAN: JOHN PENNY DATE OF SERVICE: 06/06/2022 IDENTIFYING INFORMATION: The patient is a 77-year-old female. HISTORY OF PRESENT ILLNESS: Patient was admitted to [facility] after she appeared to [place] [facility] for wandering behavior; behavioral disturbances; was found to suffer UTI, received IV Rocephin. Patient brought in from home by family for confusion, suffered frontal lobe dementia and multiple medical problems, countdown to suffer UTI. Daughter brought the patient to the ED. Daughter is power of real estate associate attorney after she contacted by the local [...] is on a waiting list for [facility]. PAST PSYCHIATRIC HISTORY: Patient [...] home. Daughter is supportive and power of real estate associate attorney. She has a home health aide. [...] Date Value 06/05/2022 (more content not included)... [facility] NURSING PROGon 06-06-2022 NURSING PROG HNO ID: [id number] Author: Manda Proctor RN Service: Nursing Author [...] Poor appetite- refused to eat all meals. [facility] NURSING PROG HNO ID: [id number] Author: Wesley Espinal RN Service: Nursing Author Type: Registered Nurse Type: Nursing Progress Note Filed: 06/06/2022 5:24 AM Note Text: Transfer note: Patient brought onto the unit in stable condition via EMS from [place] ED. Patient is tearful and yelling upon [...] 77 year old female brought in to [place] ED from Home by family for confusion. [...] not steal the car back for her. Polishing Wheel Repairer attempted interview with pt telephonically. It was [...] information obtained from pt's daughter, Jennifer Hidalgo ([phone]). Daughter reports that pt has underlying dementia, [...] with pt being on the waitlist at [facility]. [facility] NURSING PROG HNO ID: [id number] Author: Zelda Serrano RN Service: Behavioral Health [...] 06/09/22 Progress Towards Short Term Goals: Progressing Prescription Eyeglass Maker Goals: Patient will have achieved optimal level of functioning;Patient will verbalize benefits of compliance with medication and treatment after discharge;Patient will participate in cognitive, physical and social activities Target Date Prescription Eyeglass Maker Goals: 06/13/22 Progress Towards Intermediate Goals: Progressing Interventions - Nursing: Offer frequent [...] DATE: June 06, 2022 TIME: 5:12 AM [facility] THERAPY NTon 06-06-2022 THERAPY NT HNO ID: [id number] Author: Shellie Saavedra OT/L Service: Occupational Therapy Author Type: Occupational Therapist Type: Therapy (PT/OT/Speech/Resp) Filed: 06/07/2022 9:56 AM Note Text: Occupational Therapy Evaluation SERVICE DATE: 06/06/2022 SERVICE TIME: 1330 to 1355 ROOM: [place] [address] Recommended Discharge Disposition: Home OT Anticipated Discharge [...] family checks in at night. Assistance Available: daytime caregiver Prior Functional Level: Required Assistance Assistance Required [...] of daily living (ADL) Interventions Provided: Evaluation;Self Prison Management (43739) $ Evaluation-Low (91127) Billed Units: 1 unit Self Prison Management (56126) Treatment Minutes: 10 $ Self Prison Management (68553) Billed Units: 1 unit Timed Code Treatment (minutes): 10 Skilled Treatment Time (minutes): 25 Please see discipline specific clinical documentation flowsheet for complete details for this therapy evaluation/treatment. SIGNATURE: Shellie Saavedra OT/Sheldon PATIENT NAME: Chay Teague DATE: June 06, 2022 TIME: 1:30 PM [facility] THERAPY NT HNO ID: [id number] Author: Bonnie Nuñez PT Service: Physical Therapy Author Type: Physical Therapist Type: Therapy (PT/OT/Speech/Resp) Filed: 06/06/2022 8:41 AM Note Text: Physical Therapy Evaluation SERVICE DATE: 06/06/2022 SERVICE TIME: 809 to 819 ROOM: [place] [address] Recommended Discharge Disposition: Home PT Recommended Discharge [...] family checks in at night. Assistance Available: daytime caregiver Prior Functional Level: Required Assistance Assistance Required [...] on feet Interventions Provided: Evaluation $ Evaluation-Low (27724) Billed Units: 1 unit Training AND education [...] DATE: June 06, 2022 TIME: 8:40 AM [facility] HNO ID: [id number] Author: RT Sabrina(R) Service: Radiology Author Type: Technologist Type: [facility] Filed: 06/05/2022 8:12 PM Note Text: Radiology [...] RT Sabrina(R) June 05, 2022 8:12 PM [facility] HNO ID: [id number] Author: JESSIE Duke Service: Radiology Author Type: Technologist Type: [facility] Filed: 06/05/2022 7:52 PM Note [...] Duke June 05, 2022 7:52 PM Normal [facility] Bacteria Ur Culton 2 Bacteria identified Cx Nom (U) [id number] Abnormal [facility] Comment on above: Order Comment: Speci men Type: URINE SPECIMENOrdering Facility: [facility] Address: [address] [address] Result Comment: <10, 000 CFU/ml Mixed microbiota No further workup. Mixed microbiota can be due to???urine???contamination with skin bacteria at time of collection or presence of a long-term urinary catheter. If a new culture is needed, please consider re-education of the patient on proper midstream collection technique or straight catheterization for???urine???collection. Performed By: #### 6 30-4 ####[facility] LABCLIA [id number] [place] [address] [place] CBC W Auto Differential pane l (Bld)on 06-05-2022 Basophils (Bld) [#/Vol] 0.07 10*3/uL Normal <0.11 [facility] Comment on above: Order Comment: Speci men Type: BLOOD SPECIMENOrdering Facility: [facility] Address: [address] [address] Performed By: #### 5 7021-8 ####[place] [facility]ORATORYCLIA [id number] [address] [place] Basophils/100 WBC (Bld) 0.8 % Normal [facility] Comment on above: Order Comment: Speci men Type: BLOOD SPECIMENOrdering Facility: [facility] Address: [address] [place] [address] Performed By: #### 5 7021-8 ####[facility]ATORYCLIA [id number] [address] [place] Differential cell count method Nom (Bld) Auto Normal [facility] Comment on above: Order Comment: Speci men Type: BLOOD SPECIMENOrdering Facility: [facility] Address: [address] [place] [address] Performed By: #### 5 7021-8 ####[facility]ORATORYCLIA [id number] [place] [address] [place] Eosinophils (Bld) [#/Vol] 0.34 10*3/uL Normal <0.46 [facility] Comment on above: Order Comment: Speci men Type: BLOOD SPECIMENOrdering Facility: [facility] Address: [address] [place] [address] Performed By: #### 5 7021-8 ####[facility]ORATORYCLIA [id number] [address] [place] Eosinophils/100 WBC (Bld) 4.0 % Normal [facility] Comment on above: Order Comment: Speci men Type: BLOOD SPECIMENOrdering Facility: [facility] Address: [address] [place] [address] Performed By: #### 5 7021-8 ####[facility]ORATORYCLIA [id number] [address] Erythrocyte distribution width (RBC) [Ratio] 14.5 % Normal 11.5-15.0 [facility] Comment on above: Order Comment: Speci men Type: BLOOD SPECIMENOrdering Facility: [facility] Address: [address] [place] [address] Performed By: #### 5 7021-8 ####[facility]ORATORYCLIA [id number] [address] [place] Hematocrit (Bld) [Volume fraction] 41.2 % Normal 36.0-46.0 [facility] Comment on above: Order Comment: Speci men Type: BLOOD SPECIMENOrdering Facility: [facility] Address: [address] [place] [address] Performed By: #### 5 7021-8 ####[facility]ORATORYCLIA [id number] [address] Hemoglobin (Bld) [Mass/Vol] 13.6 g/dL Normal 11.5-15.5 [facility] Comment on above: Order Comment: Speci men Type: BLOOD SPECIMENOrdering Facility: [facility] Address: [address] [place] [address] Performed By: #### 5 7021-8 ####[facility]ORATORYCLIA [id number] [address] IMMATURE GRAN % 0.5 % Normal [facility] Comment on above: Order Comment: Speci men Type: BLOOD SPECIMENOrdering Facility: [facility] Address: [address] [place] [address] Performed By: #### 5 7021-8 ####[facility]ORATORYCLIA [id number] [address] IMMATURE GRAN ABS 0.04 k/uL Normal <0.10 [facility] Comment on above: Order Comment: Speci men Type: BLOOD SPECIMENOrdering Facility: [facility] Address: [address] [place] [address] Performed By: #### 5 7021-8 ####[facility]ORATORYCLIA [id number] [address] [place] Lymphocytes (Bld) [#/Vol] 2.31 10*3/uL Normal 1.00-4.00 [facility] Comment on above: Order Comment: Speci men Type: BLOOD SPECIMENOrdering Facility: [facility] Address: [address] [place] [address] Performed By: #### 5 7021-8 ####[facility]ORATORYCLIA [id number] [address] Lymphocytes/100 WBC (Bld) 27.0 % Normal [facility] Comment on above: Order Comment: Speci men Type: BLOOD SPECIMENOrdering Facility: [facility] Address: [address] [place] [address] Performed By: #### 5 7021-8 ####[facility]ORATORYCLIA [id number] [address] MCH (RBC) [Entitic mass] 30.7 pg Normal 26.0-34.0 [facility] Comment on above: Order Comment: Speci men Type: BLOOD SPECIMENOrdering Facility: [facility] Address: [address] [place] [address] Performed By: #### 5 7021-8 ####[facility]ORATORYCLIA [id number] [address] MCHC (RBC) [Mass/Vol] 33.0 g/dL Normal 30.5-36.0 [facility] Comment on above: Order Comment: Speci men Type: BLOOD SPECIMENOrdering Facility: [facility] Address: [address] [place] [address] Performed By: #### 5 7021-8 ####[facility]ORATORYCLIA [id number] [address] MCV (RBC) [Entitic vol] 93.0 fL Normal 80.0-100.0 [facility] Comment on above: Order Comment: Speci men Type: BLOOD SPECIMENOrdering Facility: [facility] Address: [address] [place] [address] Performed By: #### 5 7021-8 ####[facility]ORATORYCLIA [id number] [address] Monocytes (Bld) [#/Vol] 0.75 10*3/uL Normal <0.87 [facility] Comment on above: Order Comment: Speci men Type: BLOOD SPECIMENOrdering Facility: [facility] Address: [address] [place] [address] Performed By: #### 5 7021-8 ####[facility]ORATORYCLIA [id number] [address] Monocytes/100 WBC (Bld) 8.8 % Normal [facility] Comment on above: Order Comment: Speci men Type: BLOOD SPECIMENOrdering Facility: [facility] Address: [address] [place] [address] Performed By: #### 5 7021-8 ####[facility] LABORATORYCLIA [id number] [place] [address] [place] Neutrophils (Bld) [#/Vol] 5.04 10*3/uL Normal 1.45-7.50 [facility] Comment on above: Order Comment: Speci men Type: BLOOD SPECIMENOrdering Facility: [facility] Address: [address] [place] [address] Performed By: #### 5 7021-8 ####[facility] LABORATORYCLIA [id number] [address] [place] Neutrophils/100 WBC (Bld) 58.9 % Normal [facility] Comment on above: Order Comment: Speci men Type: BLOOD SPECIMENOrdering Facility: [facility] Address: [address] [place] [address] Performed By: #### 5 7021-8 ####[facility] LABORATORYCLIA [id number] [place] [address] [place] Nucleated RBC (Bld) [#/Vol] 10*3/uL Normal <0.01 [facility] Comment on above: Order Comment: Speci men Type: BLOOD SPECIMENOrdering Facility: [facility] Address: [address] [place] [address] Performed By: #### 5 7021-8 ####[facility]ORATORYCLIA [id number] [address] [place] Nucleated RBC/100 WBC (Bld) [Ratio] 0.0 /100 WBC Normal [facility] Comment on above: Order Comment: Speci men Type: BLOOD SPECIMENOrdering Facility: [facility] Address: [address] [place] [address] Performed By: #### 5 7021-8 ####[facility]ORATORYCLIA [id number] [place] [address] [place] Platelet mean volume (Bld) [Entitic vol] 10.1 fL Normal 9.0-12.7 [facility] Comment on above: Order Comment: Speci men Type: BLOOD SPECIMENOrdering Facility: [facility] Address: [address] [place] [address] Performed By: #### 5 7021-8 ####[facility]ORATORYCLIA [id number] [place] [address] [facility] [place] Platelets (Bld) [#/Vol] 283 10*3/uL Normal 150-400 [facility] Comment on above: Order Comment: Speci men Type: BLOOD SPECIMENOrdering Facility: [facility] Address: [address] [place] [address] Performed By: #### 5 7021-8 ####[facility]ORATORYCLIA [id number] [place] [address] [place] RBC (Bld) [#/Vol] 4.43 10*6/uL Normal 3.90-5.20 [facility] Comment on above: Order Comment: Speci men Type: BLOOD SPECIMENOrdering Facility: [facility] Address: [address] [place] [address] Performed By: #### 5 7021-8 ####[facility]ORATORYCLIA [id number] [place] [address] [place] WBC (Bld) [#/Vol] 8.55 10*3/uL Normal 3.70-11.00 [facility] Comment on above: Order Comment: Speci men Type: BLOOD SPECIMENOrdering Facility: [facility] Address: [address] [place] [address] Performed By: #### 5 7021-8 ####[facility]ORATORYCLIA [id number] [address] [place] CT BRAIN WO IVCONon 06-05-[address] BRAIN WO IVCON * * *Final Report* * * DATE OF EXAM: Jun 05 2022 8:06PM [facility] [place] / [...] base and imaged soft tissues are unremarkable. Learning Disabilities Teacher (topogram) images: Unremarkable. IMPRESSION: NO EVIDENCE OF AN ACUTE INTRACRANIAL PROCESS Investigation Specialist: INES Transcribe Date/Time: Jun 05 2022 8:12P Dictated by : ALICE MARINA MD This examination was interpreted and the report reviewed and electronically signed by: ALICE MARINA MD on Jun 05 2022 8:13PM EST [id number] Normal [facility] Comprehensive metabolic 2000 panelon 06-05-2022 Albumin [Mass/Vol] 4.0 g/dL Normal 3.9-4.9 [facility] Comment on above: Order Comment: Specrina naranjo Type: BLOOD SPECIMENOrdering Facility: [facility] Address: [address] [id number] Performed By: #### 2 4323-8, 3016-3 ####[place] [facility]ORATORYCLIA [id number] [address] STATES OF [facility] ALP [Catalytic activity/Vol] 92 U/L Normal 34-123 [facility] Comment on above: Order Comment: Bisi naranjo Type: BLOOD SPECIMENOrdering Facility: [facility] Address: [address] Performed By: #### 2 4323-8, 3016-3 ####[facility] LABORATORYCLIA [id number] [place], [place] [address] [place] [address] [place] [facility] ALT [Catalytic activity/Vol] 14 U/L Normal 7-38 [facility] Comment on above: Order Comment: Speci men Type: BLOOD SPECIMENOrdering Facility: [facility] Address: [address] [address] Performed By: #### 2 4323-8, 3016-3 ####[facility]ORATORYCLIA [id number] [place] [address] [place] Anion gap [Moles/Vol] 9 mmol/L Normal 9-18 [facility] Comment on above: Order Comment: Speci men Type: BLOOD SPECIMENOrdering Facility: [facility] Address: [address] [address] Performed By: #### 2 4323-8, 6-3 ####[facility]ORATORYCLIA [id number] [address] STATES [facility] AST [Catalytic activity/Vol] 22 U/L Normal 13-35 [facility] Comment on above: Order Comment: Speci men Type: BLOOD SPECIMENOrdering Facility: [facility] Address: [address] [address] Performed By: #### 2 4323-8, 6-3 ####[facility]ORATORYCLIA [id number] [place] [address] [place] Bilirubin [Mass/Vol] 0.5 mg/dL Normal 0.2-1.3 [facility] Comment on above: Order Comment: Speci men Type: BLOOD SPECIMENOrdering Facility: [facility] Address: [address] [address] Performed By: #### 2 4323-8, 3016-3 ####[facility]ORATORYCLIA [id number] [address] [place] Calcium [Mass/Vol] 9.5 mg/dL Normal 8.5-10.2 [facility] Comment on above: Order Comment: Speci men Type: BLOOD SPECIMENOrdering Facility: [facility] Address: [address] Performed By: #### 2 4323-8, 6-3 ####[facility]ORATORYCLIA [id number] [place] [address] [place] [facility] Chloride [Moles/Vol] 107 mmol/L High 97-105 [facility] Comment on above: Order Comment: Speci men Type: BLOOD SPECIMENOrdering Facility: [facility] Address: [address] [place] [address] Performed By: #### 2 4323-8, 6-3 ####[facility]ORATORYCLIA [id number] [place] [address] [place] CO2 [Moles/Vol] 27 mmol/L Normal 22-30 [facility] Comment on above: Order Comment: Speci men Type: BLOOD SPECIMENOrdering Facility: [facility] Address: [address] [place] [address] Performed By: #### 2 4323-8, 3015-3 ####[facility]ORATORYCLIA [id number] [address] [place] Creatinine [Mass/Vol] 0.84 mg/dL Normal 0.58-0.96 [facility] Comment on above: Order Comment: Speci men Type: BLOOD SPECIMENOrdering Facility: [facility] Address: [address] [place] [address] Performed By: #### 2 4323-8, 6-3 ####[facility]ORATORYCLIA [id number] [address] [place] ESTIMATED GLOMERULAR FILTRATION RATE 71 mL/min/1.73m??? Normal >=60 [facility] Comment on above: Order Comment: Speci men Type: BLOOD SPECIMENOrdering Facility: [facility] Address: [address] [place] [address] Result Comment: Farheen mated Glomerular Filtration Rate [...] By: #### 2 4323-8, 6-3 ####[facility] LABORATORYCLIA [id number] [place] [address] [place] Glucose [Mass/Vol] 91 mg/dL Normal 74-99 [facility] Comment on above: Order Comment: Bisi naranjo Type: BLOOD SPECIMENOrdering Facility: [facility] Address: [address] [address] Result Comment: The [place] [employer] (ADA) provides guidance for cutoff [...] Standards of Medical Care in Diabetes 2016, [place] [employer]. Diabetes Care. 2016.39(Suppl 1). Performed By: #### 2 4323-8, 6-3 ####[facility] LABORATORYCLIA [id number] [place] [address] [place] Potassium [Moles/Vol] 3.8 mmol/L Normal 3.7-5.1 [facility] [facility] Comment on above: Order Comment: Bisi naranjo Type: BLOOD SPECIMENOrdering Facility: [facility] Address: [address] [phone] Performed By: #### 2 4323-8, 6-3 ####[facility] LABORATORYCLIA [id number] [place] [address] [place] Protein [Mass/Vol] 6.9 g/dL Normal 6.3-8.0 [facility] Comment on above: Order Comment: Bisi naranjo Type: BLOOD SPECIMENOrdering Facility: [facility] Address: [address] [phone] Performed By: #### 2 4323-8, 3016-3 ####[place] [facility]ORATORYCLIA [id number] [address] Sodium [Moles/Vol] 143 mmol/L Normal 136-144 [facility] Comment on above: Order Comment: Speci men Type: BLOOD SPECIMENOrdering Facility: [facility] Address: [address] [place] [address] Performed By: #### 2 4323-8, 3016-3 ####[place] [facility]ORATORYCLIA [id number] [address] Urea nitrogen [Mass/Vol] 28 mg/dL High 7-21 [facility] Comment on above: Order Comment: Speci men Type: BLOOD SPECIMENOrdering Facility: [facility] Address: [address] [place] [address] Performed By: #### 2 4323-8, 3016-3 ####[place] [facility]ORATORYCLIA [id number] [address] ECG COMPLETEon 06-05-2022 ECG COMPLETE Ventricular Rate : 9 5 BPM Atrial Rate : 95 BPM P-R Interval : 172 ms QRS Duration : 114 ms Q-T Interval : 388 ms QTC Calculation(Bazett) : 487 ms Calculated P [place] : 42 degrees Calculated R [place] : -32 degrees Calculated T [place] : 32 degrees NORMAL SINUS RHYTHM WITH SINUS ARRHYTHMIA LEFT AXIS DEVIATION INCOMPLETE RIGHT BUNDLE BRANCH BLOCK MINIMAL VOLTAGE CRITERIA FOR LVH, MAY BE NORMAL VARIANT INFERIOR INFARCT , AGE UNDETERMINED T WAVE ABNORMALITY, CONSIDER ANTERIOR ISCHEMIA ABNORMAL ECG no STEMI 2036 Confirmed by MD MARLO, RICCARDO ([id number]), continuity editor CARON DIAZ ([id number]) on 06/06/2022 6:59:18 AM NAME : CHAY TEAGUE PID : [id number] : 1945 Gender : Female Race : Unknown ORD : [id number] Procedure Date : Jun 05 2022 20:37:48 Edit Date : Jun 06 2022 06:59:23 Diagnosis: NORMAL SINUS RHYTHM WITH SINUS ARRHYTHMIA LEFT AXIS DEVIATION INCOMPLETE RIGHT BUNDLE BRANCH BLOCK MINIMAL VOLTAGE CRITERIA FOR LVH, MAY BE NORMAL VARIANT INFERIOR INFARCT , AGE UNDETERMINED T WAVE ABNORMALITY, CONSIDER ANTERIOR ISCHEMIA ABNORMAL ECG no STEMI 2036 Confirmed by MD TAYLOR BENJAMIN ([id number]), continuity editor CARON DIAZ ([id number]) on 06/06/2022 6:59:18 AM Test Reason : Arrhythmia Location : 1 : ER ED Overread By : MD TAYLOR BENJAMIN Edited By : CARON DIAZ Referred By : , Acquired by : [place], [facility] ED NOTEon 06-05-2022 ED NOTE HNO ID: [id number] Author: Jame Leavitt RN Service: Nursing Author [...] self in triage. Denies SOB and CP. [facility] ED PROV NOTEon 06-05-2022 ED PROV NOTE HNO ID: [id number] Author: Riccardo Taylor DO Service: Emergency Medicine [...] by ED physician Clinical Impressions as of 09/14/22 2348 Confusion Dementia with behavioral disturbance, unspecified dementia type (HCC) Acute cystitis without hematuria COVID-19 test performed per [facility] [place] policy for suspected COVID community exposure. MDM [...] who will discuss the case with psychiatry installation helper. 23:48 - Now intermittently agitated trying to get out of bed. QTc normal. Haldol 2 mg IV ordered. ED ATTENDING SIGN OUT NOTE Code Status: Full Code Presentation / Findings / Interventions / Plan / Items (more content not included)... Normal [facility] Ethanol [facility] 022 Ethanol [Mass/Vol] mg/dL Normal <11 [facility] Comment on above: Order Comment: Speci men Type: BLOOD SPECIMENOrdering Facility: [facility] Address: [address] [place] [address] Performed By: #### 5 643-2 ####[place] [facility]ORATORYCLIA [id number] [place] [address] [place] SARS-CoV-2 RNA Resp Ql TATI+p robeon 06-05-2022 SARS-CoV-2 (COVID-19) RNA TATI+probe Ql (Resp) SARS-CoV-2 (Agent of COVID-19) Not Detected by RT-PCR or equivalent method. Normal Not Detected [facility] Comment on above: Order Comment: Speci men Type: SWAB OF INTERNAL NOSEOrdering Facility: [facility] Address: [address] [address] Result Comment: This test has been authorized by FDA under an Emergency Use Authorization (EUA). Performed By: #### 9 4500-6 ####[facility] LABORATORYCLIA [id number] [address] [place] TOX SCREEN ROUT URon 022 Amphetamines Confirm (U) [Mass/Vol] Negative Normal Negative [facility] Comment on above: Order Comment: Speci men Type: URINE SPECIMENOrdering Facility: [facility] Address: [address] [place] [address] Result Comment: Cuto ff threshold at 1000 ng/mL. Performed By: #### U TOX2 ####[facility] LABORATORYCLIA [id number] [address] [place] BARBITURATES, URINE Negative Normal Negative [facility] Comment on above: Order Comment: Speci men Type: URINE SPECIMENOrdering Facility: [facility] Address: [address] [place] [address] Result Comment: Cuto ff threshold at 200 ng/mL. Performed By: #### U TOX2 ####[facility] LABORATORYCLIA [id number] [place] [address] [place] BENZODIAZEPINES, UR Negative Normal Negative [facility] Comment on above: Order Comment: Speci men Type: URINE SPECIMENOrdering Facility: [facility] Address: [address] [place] [address] Result Comment: Cuto ff threshold at 200 ng/mL. Performed By: #### U TOX2 ####[facility] LABORATORYCLIA [id number] [place] [address] [place] CANNABINOIDS,URINE Negative Normal Negative [facility] Comment on above: Order Comment: Speci men Type: URINE SPECIMENOrdering Facility: [facility] Address: [address] [place] [address] Result Comment: Cuto ff threshold at 50 ng/mL. Performed By: #### U TOX2 ####[facility] LABORATORYCLIA [id number] [place] [address] [place] Cocaine Ql (U) Negative Normal Negative [facility] Comment on above: Order Comment: Speci men Type: URINE SPECIMENOrdering Facility: [facility] Address: [address] [place] [address] Result Comment: Cuto ff threshold at 300 ng/mL. Performed By: #### U TOX2 ####[facility] LABORATORYCLIA [id number] [address] STATES [facility] Ethanol (U) [Mass/Vol] <11 Normal <11 [facility] Comment on above: Order Comment: Speci men Type: URINE SPECIMENOrdering Facility: [facility] Address: [address] [place] [address] Performed By: #### U TOX2 ####[facility] LABORATORYCLIA [id number] [address] [place] Opiates Screen Ql (U) Negative Normal Negative [facility] Comment on above: Order Comment: Speci men Type: URINE SPECIMENOrdering Facility: [facility] Address: [address] [place] [address] Result Comment: Cuto ff threshold at 300 ng/mL. Performed By: #### U TOX2 ####[facility] LABORATORYCLIA [id number] [address] oxyCODONE cutoff Screen (U) [Mass/Vol] Negative Normal Negative [facility] Comment on above: Order Comment: Speci men Type: URINE SPECIMENOrdering Facility: [facility] Address: [address] [place] [address] Result Comment: Cuto ff threshold at 100 ng/mL. Performed By: #### U TOX2 ####[facility] LABORATORYCLIA [id number] [address] [place] Phencyclidine Ql (U) Negative Normal Negative [facility] Comment on above: Order Comment: Speci men Type: URINE SPECIMENOrdering Facility: [facility] Address: [address] [place] [address] Result Comment: Cuto ff threshold at 25 ng/mL. Performed By: #### U TOX2 ####[facility] LABORATORYCLIA [id number] [place] [address] [place] TSH SerPl-aCncon 06-05-2022 TSH Qn 4.220 m[IU]/L High 0.270-4.200 [facility] Comment on above: Order Comment: Speci men Type: BLOOD SPECIMENOrdering Facility: [facility] Address: [address] [place] [address] Performed By: #### 2 4323-8, 3016-3 ####[facility] LABORATORYCLIA [id number] [place] [address] [place] URINALYSIS, REFLEX MICROSCOP ICon 06-05-2022 Bacteria LM.HPF (Urine sed) [#/Area] Moderate Abnormal None Seen [facility] Comment on above: Order Comment: Speci men Type: URINE SPECIMENOrdering Facility: [facility] Address: [address] [place] [address] Performed By: #### L [id number] ####[facility] LABORATORYCLIA [id number] [address] [place] Bilirubin Ql (U) Negative Normal Negative [facility] Comment on above: Order Comment: Speci men Type: URINE SPECIMENOrdering Facility: [facility] Address: [address] [place] [address] Performed By: #### L [id number] ####[facility] LABORATORYCLIA [id number] [address] [place] Clarity (Unsp spec) Slightly Cloudy Abnormal Clear [facility] Comment on above: Order Comment: Speci men Type: URINE SPECIMENOrdering Facility: [facility] Address: [address] [place] [address] Performed By: #### L [id number] ####[facility] LABORATORYCLIA [id number] [address] Color (U) Yellow Normal Yellow [facility] Comment on above: Order Comment: Speci men Type: URINE SPECIMENOrdering Facility: [facility] Address: [address] [place] [address] Performed By: #### L [id number] ####[facility] LABORATORYCLIA [id number] [address] [place] Epithelial cells LM.HPF (Urine sed) [#/Area] Few Normal [facility] Comment on above: Order Comment: Speci men Type: URINE SPECIMENOrdering Facility: [facility] Address: [address] [place] [address] Result Comment: Few Performed By: #### L [id number] ####[facility] LABORATORYCLIA [id number] [address] Glucose Test strip (U) [Mass/Vol] Negative Normal Negative [facility] Comment on above: Order Comment: Speci men Type: URINE SPECIMENOrdering Facility: [facility] Address: [address] [place] [address] Performed By: #### L [id number] ####[facility] LABORATORYCLIA [id number] [address] Hemoglobin Ql (U) Trace Abnormal Negative [facility] Comment on above: Order Comment: Speci men Type: URINE SPECIMENOrdering Facility: [facility] Address: [address] [place] [address] Performed By: #### L [id number] ####[facility] LABORATORYCLIA [id number] [address] [place] Ketones Ql (U) Negative Normal Negative [facility] Comment on above: Order Comment: Speci men Type: URINE SPECIMENOrdering Facility: [facility] Address: [address] [place] [address] Performed By: #### L [id number] ####[facility] LABORATORYCLIA [id number] [address] Leukocyte esterase Test strip Ql (U) 2+ Abnormal Negative [facility] Comment on above: Order Comment: Speci men Type: URINE SPECIMENOrdering Facility: [facility] Address: [address] [place] [address] Performed By: #### L [id number] ####[facility] LABORATORYCLIA [id number] [address] [place] Nitrite Ql (U) Negative Normal Negative [facility] Comment on above: Order Comment: Speci men Type: URINE SPECIMENOrdering Facility: [facility] Address: [address] [place] [address] Performed By: #### L [id number] ####[facility] LABORATORYCLIA [id number] [address] pH (U) 6.0 [pH] Normal 5.0-8.0 [facility] Comment on above: Order Comment: Speci men Type: URINE SPECIMENOrdering Facility: [facility] Address: [address] [place] [address] Performed By: #### L [id number] ####[facility] LABORATORYCLIA [id number] [address] Protein (U) [Mass/Vol] Negative Normal Negative [facility] Comment on above: Order Comment: Speci men Type: URINE SPECIMENOrdering Facility: [facility] Address: [address] [place] [address] Performed By: #### L [id number] ####[facility]PITALCLIA [id number] [address] [place] RBC LM.HPF (Urine sed) [#/Area] 0-3 /HPF Normal 0-3 /HPF [facility] Comment on above: Order Comment: Speci men Type: URINE SPECIMENOrdering Facility: [facility] Address: [address] [place] [address] Performed By: #### L [id number] ####[place] [facility]ORATORYCLIA [id number] [address] Specific gravity (U) [Rel density] 1.025 Normal 1.005-1.030 [facility] Comment on above: Order Comment: Speci men Type: URINE SPECIMENOrdering Facility: [facility] Address: [address] [place] [address] Performed By: #### L [id number] ####[facility] LABORATORYCLIA [id number] [address] Urobilinogen Ql (U) 0.2 EU/dL Normal 0.2-1.0 EU/dL [facility] Comment on above: Order Comment: Speci men Type: URINE SPECIMENOrdering Facility: [facility] Address: [address] [place] [address] Performed By: #### L [id number] ####[place] [facility]ORATORYCLIA [id number] [address] [facility] WBC LM.HPF (Urine sed) [#/Area] 11-25 /HPF Abnormal 0-5 /HPF [facility] Comment on above: Order Comment: Speci men Type: URINE SPECIMENOrdering Facility: [facility] Address: [address] [id number] Performed By: #### L [id number] ####[place] [facility]ORATORYCLIA [id number] [address] [place] XR CHEST 1V FRONTAL [...] limits Other: . IMPRESSION: No active disease Investigation Specialist: INES Transcribe Date/Time: Jun 05 2022 8:14P Dictated by : ALICE MARINA MD This examination was interpreted and the report reviewed and electronically signed by: ALICE MARINA MD on Jun 05 2022 8:14PM EST [id number] Normal [facility] Anti-Nuclear Antibodyon 02- CRESENCIO Titer < 1 : 80 Normal <1:80 [facility] [employer] (deal united) [facility] Comment on above: Result Comment: Test ed by Indirect Immunofluorescence Assay (IFA). Performed By: #### A PTT, TSH5, HEMDF, LDH3, DDI2, BMP3M, ESR, FOLT3, URIC3, FEIBC, FERR3, B12, FT4M #### [place] [address] [facility] #### HVAAO, ANA3, HEPAN, B2GPG, B2GPM, B2GPA #### [address] #### LUPUS #### The performing lab is in the report. Lupus Anticoagulant Reflexiv e Panelon 11-12-2021 aPTT Coag (Bld) [Time] 118 s High 32-48 [facility] Comment on above: Performed By: #### A PTT, TSH5, HEMDF, LDH3, DDI2, BMP3M, ESR, FOLT3, URIC3, FEIBC, FERR3, B12, FT4M #### [address] [address] [facility] #### HVAAO, ANA3, HEPAN, B2GPG, B2GPM, B2GPA #### [address] #### LUPUS #### The performing lab is in the report. aPTT Coag (Bld) [Time] 42 s Normal 32-48 [facility] Comment on above: Performed By: #### A PTT, TSH5, HEMDF, LDH3, DDI2, BMP3M, ESR, FOLT3, URIC3, FEIBC, FERR3, B12, FT4M #### [address] [facility] #### HVAAO, ANA3, HEPAN, B2GPG, B2GPM, B2GPA #### [address] #### LUPUS #### The performing lab is in the report. dRVVT 1:1 Mix Not Applicable Normal 33-44 [facility] Comment on above: Performed By: #### A PTT, TSH5, HEMDF, LDH3, DDI2, BMP3M, ESR, FOLT3, URIC3, FEIBC, FERR3, B12, FT4M #### [address] [place] #### HVAAO, ANA3, HEPAN, B2GPG, B2GPM, B2GPA #### [address] #### LUPUS #### The performing lab is in the report. dRVVT Confirmation Not Applicable Normal Negative [facility] Comment on above: Performed By: #### A PTT, TSH5, HEMDF, LDH3, DDI2, BMP3M, ESR, FOLT3, URIC3, FEIBC, FERR3, B12, FT4M #### [facility] [address] [place] [address] #### HVAAO, ANA3, HEPAN, B2GPG, B2GPM, B2GPA #### [address] #### LUPUS #### The performing lab is in the report. dRVVT Screen 29 sec Low 33-44 [facility] Comment on above: Performed By: #### A PTT, TSH5, HEMDF, LDH3, DDI2, BMP3M, ESR, FOLT3, URIC3, FEIBC, FERR3, B12, FT4M #### [address] [place] [address] #### HVAAO, ANA3, HEPAN, B2GPG, B2GPM, B2GPA #### [address] #### LUPUS #### The performing lab is in the report. Hexagonal Phospholipid Neutral Reflex Not Applicable Normal Negative [facility] Comment on above: Performed By: #### A PTT, TSH5, HEMDF, LDH3, DDI2, BMP3M, ESR, FOLT3, URIC3, FEIBC, FERR3, B12, FT4M #### [address] [address] [place] [address] #### HVAAO, ANA3, HEPAN, B2GPG, B2GPM, B2GPA #### [address] #### LUPUS #### The performing lab is in the report. Lupus Anticoagulant Interpretation See Note Normal [facility] Comment on above: Result Comment: Lupu [...] developed and its performance characteristics determined by [facility]. It has not been cleared or approved by the [place] Food and Drug Administration. This test was performed in a CLIA certified laboratory and is intended for clinical purposes. Counseling and informed consent are recommended for genetic testing. Consent forms are available online. Performed by [facility], [address] [place] [id number] [email or web address], Sara Ji MD - Lab. Director Performed By: #### A PTT, TSH5, HEMDF, LDH3, DDI2, BMP3M, ESR, FOLT3, URIC3, FEIBC, FERR3, B12, FT4M #### [employer] [address] [place] [address] #### HVAAO, ANA3, HEPAN, B2GPG, B2GPM, B2GPA #### [employer] (deal united) [address] [address] #### LUPUS #### The performing lab is in the report. Platelet Neutralization (PTT-D, Confirm) Not Applicable Normal Negative [facility] [employer] (deal united) [facility] Comment on above: Performed By: #### A PTT, TSH5, HEMDF, LDH3, DDI2, BMP3M, ESR, FOLT3, URIC3, FEIBC, FERR3, B12, FT4M #### [employer] [address] [place] [address] #### HVAAO, ANA3, HEPAN, B2GPG, B2GPM, B2GPA #### [employer] [address], [place] #### LUPUS #### The performing lab is in the report. PT Coag (PPP) [Time] 13.4 s Normal 12.0-15.5 [facility] Comment on above: Performed By: #### A PTT, TSH5, HEMDF, LDH3, DDI2, BMP3M, ESR, FOLT3, URIC3, FEIBC, FERR3, B12, FT4M #### [facility] [address] [facility] [place] [address] #### HVAAO, ANA3, HEPAN, B2GPG, B2GPM, B2GPA #### [address] #### LUPUS #### The performing lab is in the report. PTT-D 1:1 Mix Not Applicable Normal 32-48 [facility] Comment on above: Performed By: #### A PTT, TSH5, HEMDF, LDH3, DDI2, BMP3M, ESR, FOLT3, URIC3, FEIBC, FERR3, B12, FT4M #### [facility] [address] [place] [address] #### HVAAO, ANA3, HEPAN, B2GPG, B2GPM, B2GPA #### [address] #### LUPUS #### The performing lab is in the report. Reptilase Time 16.5 sec Normal <=21.9 [facility] Comment on above: Performed By: #### A PTT, TSH5, HEMDF, LDH3, DDI2, BMP3M, ESR, FOLT3, URIC3, FEIBC, FERR3, B12, FT4M #### [facility] [address] [facility] [place] [address] #### HVAAO, ANA3, HEPAN, B2GPG, B2GPM, B2GPA #### [address] #### LUPUS #### The performing lab is in the report. Thrombin Time > 150.0 High 14.7-19.5 [facility] Comment on above: Performed By: #### A PTT, TSH5, HEMDF, LDH3, DDI2, BMP3M, ESR, FOLT3, URIC3, FEIBC, FERR3, B12, FT4M #### [address] [place] [address] #### HVAAO, ANA3, HEPAN, B2GPG, B2GPM, B2GPA #### [address] #### LUPUS #### The performing lab is in the report. Basic Metabolic Panelon 10-23 Anion gap [Moles/Vol] 4 mmol/L Normal 3-13 [facility] Comment on above: Performed By: #### A PTT, TSH5, HEMDF, LDH3, DDI2, BMP3M, ESR, FOLT3, URIC3, FEIBC, FERR3, B12, FT4M #### [address] [place] [address] #### HVAAO, ANA3, HEPAN, B2GPG, B2GPM, B2GPA #### [address] #### LUPUS #### The performing lab is in the report. Calcium [Mass/Vol] 9.0 mg/dL Normal 8.4-10.4 [facility] Comment on above: Performed By: #### A PTT, TSH5, HEMDF, LDH3, DDI2, BMP3M, ESR, FOLT3, URIC3, FEIBC, FERR3, B12, FT4M #### [address] [place] [address] #### HVAAO, ANA3, HEPAN, B2GPG, B2GPM, B2GPA #### [address] #### LUPUS #### The performing lab is in the report. CO2 [Moles/Vol] 30 mmol/L Normal 22-30 [facility] Comment on above: Performed By: #### A PTT, TSH5, HEMDF, LDH3, DDI2, BMP3M, ESR, FOLT3, URIC3, FEIBC, FERR3, B12, FT4M #### [facility] [address] [place] [address] #### HVAAO, ANA3, HEPAN, B2GPG, B2GPM, B2GPA #### [address] #### LUPUS #### The performing lab is in the report. Creatinine [Mass/Vol] 0.95 mg/dL Normal 0.52-1.25 [facility] Comment on above: Performed By: #### A PTT, TSH5, HEMDF, LDH3, DDI2, BMP3M, ESR, FOLT3, URIC3, FEIBC, FERR3, B12, FT4M #### [place] [address] [place] [address] #### HVAAO, ANA3, HEPAN, B2GPG, B2GPM, B2GPA #### [address] #### LUPUS #### The performing lab is in the report. GFR/1.73 sq M.predicted among blacks MDRD (S/P/Bld) [Vol rate/Area] 66.2 mL/min/{1.73_m2} Normal >60 [facility] Comment on above: Performed By: #### A PTT, TSH5, HEMDF, LDH3, DDI2, BMP3M, ESR, FOLT3, URIC3, FEIBC, FERR3, B12, FT4M #### [place] [address] [place] [address] #### HVAAO, ANA3, HEPAN, B2GPG, B2GPM, B2GPA #### [address] #### LUPUS #### The performing lab is in the report. GFR/1.73 sq M.predicted among non-blacks MDRD (S/P/Bld) [Vol rate/Area] 57.1 mL/min/{1.73_m2} Abnormal >60 [facility] Comment on above: Result Comment: KDIG [...] FOLT3, URIC3, FEIBC, FERR3, B12, FT4M #### [facility] [address] [place] [address] #### HVAAO, ANA3, HEPAN, B2GPG, B2GPM, B2GPA #### [address] [address] #### LUPUS #### The performing lab is in the report. Glucose [Mass/Vol] 101 mg/dL High 70-100 [facility] Comment on above: Performed By: #### A PTT, TSH5, HEMDF, LDH3, DDI2, BMP3M, ESR, FOLT3, URIC3, FEIBC, FERR3, B12, FT4M #### [facility] [address] [place] [address] #### HVAAO, ANA3, HEPAN, B2GPG, B2GPM, B2GPA #### [address] [address] #### LUPUS #### The performing lab is in the report. Urea nitrogen [Mass/Vol] 16 mg/dL Normal 9-20 [facility] Comment on above: Performed By: #### A PTT, TSH5, HEMDF, LDH3, DDI2, BMP3M, ESR, FOLT3, URIC3, FEIBC, FERR3, B12, FT4M #### [facility] [address] [place] [address] #### HVAAO, ANA3, HEPAN, B2GPG, B2GPM, B2GPA #### [address] #### LUPUS #### The performing lab is in the report. Chloride [Moles/Vol] 109 mmol/L High 98-107 [facility] Comment on above: Performed By: #### A PTT, TSH5, HEMDF, LDH3, DDI2, BMP3M, ESR, FOLT3, URIC3, FEIBC, FERR3, B12, FT4M #### [place] [address] [place] #### HVAAO, ANA3, HEPAN, B2GPG, B2GPM, B2GPA #### [address] #### LUPUS #### The performing lab is in the report. Potassium [Moles/Vol] 4.2 mmol/L Normal 3.5-5.1 [facility] Comment on above: Performed By: #### A PTT, TSH5, HEMDF, LDH3, DDI2, BMP3M, ESR, FOLT3, URIC3, FEIBC, FERR3, B12, FT4M #### [facility] [address] [place] #### HVAAO, ANA3, HEPAN, B2GPG, B2GPM, B2GPA #### [address] #### LUPUS #### The performing lab is in the report. Sodium [Moles/Vol] 142 mmol/L Normal 135-145 [facility] Comment on above: Performed By: #### A PTT, TSH5, HEMDF, LDH3, DDI2, BMP3M, ESR, FOLT3, URIC3, FEIBC, FERR3, B12, FT4M #### [place] [address] [place] #### HVAAO, ANA3, HEPAN, B2GPG, B2GPM, B2GPA #### [address] #### LUPUS #### The performing lab is in the report. Hemogram w/ Autodiffon 11-10 Abs Baso Cnt 0.1 10*3/uL Normal 0.0-0.2 [facility] Comment on above: Performed By: #### A PTT, TSH5, HEMDF, LDH3, DDI2, BMP3M, ESR, FOLT3, URIC3, FEIBC, FERR3, B12, FT4M #### [address] [place] [address] #### HVAAO, ANA3, HEPAN, B2GPG, B2GPM, B2GPA #### [address] #### LUPUS #### The performing lab is in the report. Abs Neutrophile Cnt 5.2 10*3/uL Normal 1.8-7.0 [facility] Comment on above: Performed By: #### A PTT, TSH5, HEMDF, LDH3, DDI2, BMP3M, ESR, FOLT3, URIC3, FEIBC, FERR3, B12, FT4M #### [address] [place] [address] #### HVAAO, ANA3, HEPAN, B2GPG, B2GPM, B2GPA #### [address] #### LUPUS #### The performing lab is in the report. Basophils/100 WBC (Bld) 0.7 % Normal 0.0-2.0 [facility] Comment on above: Performed By: #### A PTT, TSH5, HEMDF, LDH3, DDI2, BMP3M, ESR, FOLT3, URIC3, FEIBC, FERR3, B12, FT4M #### [address] [place], [place] #### HVAAO, ANA3, HEPAN, B2GPG, B2GPM, B2GPA #### [address] #### LUPUS #### The performing lab is in the report. Eosinophils (Bld) [#/Vol] 0.5 10*3/uL Normal 0.0-0.5 [facility] Comment on above: Performed By: #### A PTT, TSH5, HEMDF, LDH3, DDI2, BMP3M, ESR, FOLT3, URIC3, FEIBC, FERR3, B12, FT4M #### [facility] [address] [place] [address] #### HVAAO, ANA3, HEPAN, B2GPG, B2GPM, B2GPA #### [address] #### LUPUS #### The performing lab is in the report. Eosinophils/100 WBC (Bld) 5.8 % Normal 1.0-6.0 [facility] Comment on above: Performed By: #### A PTT, TSH5, HEMDF, LDH3, DDI2, BMP3M, ESR, FOLT3, URIC3, FEIBC, FERR3, B12, FT4M #### [facility] [address] [place], [place] #### HVAAO, ANA3, HEPAN, B2GPG, B2GPM, B2GPA #### [address] #### LUPUS #### The performing lab is in the report. Erythrocyte distribution width (RBC) [Ratio] 15.2 % High 11.5-14.5 [facility] Comment on above: Performed By: #### A PTT, TSH5, HEMDF, LDH3, DDI2, BMP3M, ESR, FOLT3, URIC3, FEIBC, FERR3, B12, FT4M #### [place] [address] [place], [place] #### HVAAO, ANA3, HEPAN, B2GPG, B2GPM, B2GPA #### [address] #### LUPUS #### The performing lab is in the report. Granulocytes/100 WBC (Bld) 64.6 % Normal 40.0-80.0 [facility] Comment on above: Performed By: #### A PTT, TSH5, HEMDF, LDH3, DDI2, BMP3M, ESR, FOLT3, URIC3, FEIBC, FERR3, B12, FT4M #### [facility] [address] [place], [place] #### HVAAO, ANA3, HEPAN, B2GPG, B2GPM, B2GPA #### [place] [address] [place], [place] #### LUPUS #### The performing lab is in the report. Hematocrit (Bld) [Volume fraction] 37.8 % Normal 35.0-47.0 [facility] Comment on above: Performed By: #### A PTT, TSH5, HEMDF, LDH3, DDI2, BMP3M, ESR, FOLT3, URIC3, FEIBC, FERR3, B12, FT4M #### [facility] [address] [place], [place] #### HVAAO, ANA3, HEPAN, B2GPG, B2GPM, B2GPA #### [place] [address] [address] [place], [place] #### LUPUS #### The performing lab is in the report. Hemoglobin (Bld) [Mass/Vol] 12.4 g/dL Normal 11.7-16.0 [facility] Comment on above: Performed By: #### A PTT, TSH5, HEMDF, LDH3, DDI2, BMP3M, ESR, FOLT3, URIC3, FEIBC, FERR3, B12, FT4M #### [facility] [address] [place], [place] #### HVAAO, ANA3, HEPAN, B2GPG, B2GPM, B2GPA #### [address] #### LUPUS #### The performing lab is in the report. Lymphocytes (Bld) [#/Vol] 1.7 10*3/uL Normal 1.0-4.3 [facility] Comment on above: Performed By: #### A PTT, TSH5, HEMDF, LDH3, DDI2, BMP3M, ESR, FOLT3, URIC3, FEIBC, FERR3, B12, FT4M #### [facility] [address] [place] [address] #### HVAAO, ANA3, HEPAN, B2GPG, B2GPM, B2GPA #### [address] #### LUPUS #### The performing lab is in the report. Lymphocytes/100 WBC (Bld) 21.0 % Normal 20.0-40.0 [facility] Comment on above: Performed By: #### A PTT, TSH5, HEMDF, LDH3, DDI2, BMP3M, ESR, FOLT3, URIC3, FEIBC, FERR3, B12, FT4M #### [facility] [address] [place] [address] #### HVAAO, ANA3, HEPAN, B2GPG, B2GPM, B2GPA #### [address] #### LUPUS #### The performing lab is in the report. MCH (RBC) [Entitic mass] 30.5 pg Normal 26.0-34.0 [facility] Comment on above: Performed By: #### A PTT, TSH5, HEMDF, LDH3, DDI2, BMP3M, ESR, FOLT3, URIC3, FEIBC, FERR3, B12, FT4M #### [facility] [address] [place] [address] #### HVAAO, ANA3, HEPAN, B2GPG, B2GPM, B2GPA #### [address] #### LUPUS #### The performing lab is in the report. MCHC 32.8 % Normal 32.0-36.0 [facility] Comment on above: Performed By: #### A PTT, TSH5, HEMDF, LDH3, DDI2, BMP3M, ESR, FOLT3, URIC3, FEIBC, FERR3, B12, FT4M #### [place] [address] [place] [address] #### HVAAO, ANA3, HEPAN, B2GPG, B2GPM, B2GPA #### [address] #### LUPUS #### The performing lab is in the report. MCV (RBC) [Entitic vol] 92.9 fL Normal 79.0-98.0 [facility] Comment on above: Performed By: #### A PTT, TSH5, HEMDF, LDH3, DDI2, BMP3M, ESR, FOLT3, URIC3, FEIBC, FERR3, B12, FT4M #### [address] [facility] [place] #### HVAAO, ANA3, HEPAN, B2GPG, B2GPM, B2GPA #### [address] #### LUPUS #### The performing lab is in the report. Monocytes (Bld) [#/Vol] 0.6 10*3/uL Normal 0.0-0.8 [facility] Comment on above: Performed By: #### A PTT, TSH5, HEMDF, LDH3, DDI2, BMP3M, ESR, FOLT3, URIC3, FEIBC, FERR3, B12, FT4M #### [address] [place] #### HVAAO, ANA3, HEPAN, B2GPG, B2GPM, B2GPA #### [address] #### LUPUS #### The performing lab is in the report. Monocytes/100 WBC (Bld) 7.9 % Normal 2.0-10.0 [facility] Comment on above: Performed By: #### A PTT, TSH5, HEMDF, LDH3, DDI2, BMP3M, ESR, FOLT3, URIC3, FEIBC, FERR3, B12, FT4M #### [place] [address] [place] [address] #### HVAAO, ANA3, HEPAN, B2GPG, B2GPM, B2GPA #### [address] #### LUPUS #### The performing lab is in the report. Platelet mean volume (Bld) [Entitic vol] 8.8 fL Normal 7.4-10.4 [facility] Comment on above: Performed By: #### A PTT, TSH5, HEMDF, LDH3, DDI2, BMP3M, ESR, FOLT3, URIC3, FEIBC, FERR3, B12, FT4M #### [address] [place] #### HVAAO, ANA3, HEPAN, B2GPG, B2GPM, B2GPA #### [address] #### LUPUS #### The performing lab is in the report. Platelets (Bld) [#/Vol] 280 10*3/uL Normal 140-440 [facility] Comment on above: Performed By: #### A PTT, TSH5, HEMDF, LDH3, DDI2, BMP3M, ESR, FOLT3, URIC3, FEIBC, FERR3, B12, FT4M #### [address] [place] #### HVAAO, ANA3, HEPAN, B2GPG, B2GPM, B2GPA #### [address] #### LUPUS #### The performing lab is in the report. RBC (Bld) [#/Vol] 4.07 10*6/uL Normal 3.80-5.20 [facility] Comment on above: Performed By: #### A PTT, TSH5, HEMDF, LDH3, DDI2, BMP3M, ESR, FOLT3, URIC3, FEIBC, FERR3, B12, FT4M #### [facility] [address] [place] [address] #### HVAAO, ANA3, HEPAN, B2GPG, B2GPM, B2GPA #### [facility] [address] [place], [place] #### LUPUS #### The performing lab is in the report. WBC (Bld) [#/Vol] 8.0 10*3/uL Normal 3.6-10.7 [facility] Comment on above: Performed By: #### A PTT, TSH5, HEMDF, LDH3, DDI2, BMP3M, ESR, FOLT3, URIC3, FEIBC, FERR3, B12, FT4M #### [facility] [address] [place] [address] #### HVAAO, ANA3, HEPAN, B2GPG, B2GPM, B2GPA #### [address] [place] [place], [place] #### LUPUS #### The performing lab is in the report. SARS-CoV-2 Antigenon 022 SARS-CoV-2 Antigen Negative Normal Negative [facility] Comment on above: Result Comment: A negative result does not rule out the possibility of SARS-CoV-2 infection. NAAT-based methods should be considered for symptomatic patients presenting greater than seven days after onset of symptoms. Method: Lateral flow immunoassay. Fact sheets for healthcare providers and patients can be found at the following sites: https://www.fda.gov/media/149273/download https://www.fda.gov/media/288220/download Performed By: #### A PTT, TSH5, HEMDF, LDH3, DDI2, BMP3M, ESR, FOLT3, URIC3, FEIBC, FERR3, B12, FT4M #### [facility] [address] [place] #### HVAAO, ANA3, HEPAN, B2GPG, B2GPM, B2GPA #### [place] [address] [place], [place] #### LUPUS #### The performing lab is in the report. Basic Metabolic Panelon 02- Anion gap [Moles/Vol] 5 mmol/L Normal 3-13 [facility] Comment on above: Performed By: #### A PTT, TSH5, HEMDF, LDH3, DDI2, BMP3M, ESR, FOLT3, URIC3, FEIBC, FERR3, B12, FT4M #### [facility] [address] [place] [address] #### HVAAO, ANA3, HEPAN, B2GPG, B2GPM, B2GPA #### [address] #### LUPUS #### The performing lab is in the report. Calcium [Mass/Vol] 9.2 mg/dL Normal 8.4-10.4 [facility] Comment on above: Performed By: #### A PTT, TSH5, HEMDF, LDH3, DDI2, BMP3M, ESR, FOLT3, URIC3, FEIBC, FERR3, B12, FT4M #### [facility] [address] [place] [address] #### HVAAO, ANA3, HEPAN, B2GPG, B2GPM, B2GPA #### [address] #### LUPUS #### The performing lab is in the report. CO2 [Moles/Vol] 28 mmol/L Normal 22-30 [facility] Comment on above: Performed By: #### A PTT, TSH5, HEMDF, LDH3, DDI2, BMP3M, ESR, FOLT3, URIC3, FEIBC, FERR3, B12, FT4M #### [facility] [address] [place] [address] #### HVAAO, ANA3, HEPAN, B2GPG, B2GPM, B2GPA #### [address] #### LUPUS #### The performing lab is in the report. Glucose [Mass/Vol] 106 mg/dL High 70-100 [facility] Comment on above: Performed By: #### A PTT, TSH5, HEMDF, LDH3, DDI2, BMP3M, ESR, FOLT3, URIC3, FEIBC, FERR3, B12, FT4M #### [address] [place] [address] #### HVAAO, ANA3, HEPAN, B2GPG, B2GPM, B2GPA #### [address] #### LUPUS #### The performing lab is in the report. Urea nitrogen [Mass/Vol] 14 mg/dL Normal 9-20 [facility] Comment on above: Performed By: #### A PTT, TSH5, HEMDF, LDH3, DDI2, BMP3M, ESR, FOLT3, URIC3, FEIBC, FERR3, B12, FT4M #### [address] [place] #### HVAAO, ANA3, HEPAN, B2GPG, B2GPM, B2GPA #### [address] #### LUPUS #### The performing lab is in the report. Creatinine [Mass/Vol] 0.88 mg/dL Normal 0.52-1.25 [facility] Comment on above: Performed By: #### A PTT, TSH5, HEMDF, LDH3, DDI2, BMP3M, ESR, FOLT3, URIC3, FEIBC, FERR3, B12, FT4M #### [address] [place] [address] #### HVAAO, ANA3, HEPAN, B2GPG, B2GPM, B2GPA #### [address] #### LUPUS #### The performing lab is in the report. GFR/1.73 sq M.predicted among blacks MDRD (S/P/Bld) [Vol rate/Area] 72.6 mL/min/{1.73_m2} Normal >60 [facility] Comment on above: Performed By: #### A PTT, TSH5, HEMDF, LDH3, DDI2, BMP3M, ESR, FOLT3, URIC3, FEIBC, FERR3, B12, FT4M #### [facility] [employer] [facility] [address] [place] [address] #### HVAAO, ANA3, HEPAN, B2GPG, B2GPM, B2GPA #### [facility] [address] [place], [place] #### LUPUS #### The performing lab is in the report. GFR/1.73 sq M.predicted among non-blacks MDRD (S/P/Bld) [Vol rate/Area] 62.7 mL/min/{1.73_m2} Normal >60 [facility] Comment on above: Result Comment: KDIG [...] FOLT3, URIC3, FEIBC, FERR3, B12, FT4M #### [facility] [address] [place] [address] #### HVAAO, ANA3, HEPAN, B2GPG, B2GPM, B2GPA #### [facility] [address] [place] [address] #### LUPUS #### The performing lab is in the report. Chloride [Moles/Vol] 108 mmol/L High 98-107 [facility] Comment on above: Performed By: #### A PTT, TSH5, HEMDF, LDH3, DDI2, BMP3M, ESR, FOLT3, URIC3, FEIBC, FERR3, B12, FT4M #### [place] [address] [place] [address] #### HVAAO, ANA3, HEPAN, B2GPG, B2GPM, B2GPA #### [address] #### LUPUS #### The performing lab is in the report. Potassium [Moles/Vol] 4.1 mmol/L Normal 3.5-5.1 [facility] Comment on above: Performed By: #### A PTT, TSH5, HEMDF, LDH3, DDI2, BMP3M, ESR, FOLT3, URIC3, FEIBC, FERR3, B12, FT4M #### [address] [place] #### HVAAO, ANA3, HEPAN, B2GPG, B2GPM, B2GPA #### [address] #### LUPUS #### The performing lab is in the report. Sodium [Moles/Vol] 141 mmol/L Normal 135-145 [facility] Comment on above: Performed By: #### A PTT, TSH5, HEMDF, LDH3, DDI2, BMP3M, ESR, FOLT3, URIC3, FEIBC, FERR3, B12, FT4M #### [address] [facility] [place] [address] #### HVAAO, ANA3, HEPAN, B2GPG, B2GPM, B2GPA #### [address] #### LUPUS #### The performing lab is in the report. CR Chest Portableon 11-09-19 CR Chest Portable Patient Name: CHAY TEAGUE Diagnostic Radiology ACCESSION EXAM DATE/TIME PROCEDURE ORDERING PROVIDER [id number] 11/09/2021 13:45 EST CR Chest Portable MD FLOR, RENEA CPT code 36709 Reason For Exam (CR Chest Portable) Shortness [...] Report Dictated on Final Dictating Physician: MD VERONICA, LUIS E Apple Signed Date and Time: 11/09/2021 2:25 pm Signed by: MD MARTIN ANTHONY J Transcribed Date and Time: 11/09/2021 2:26 Normal [facility] Hemogram w/ Autodiffon 11-09 Abs Baso Cnt 0.1 10*3/uL Normal 0.0-0.2 [facility] Comment on above: Performed By: #### A PTT, TSH5, HEMDF, LDH3, DDI2, BMP3M, ESR, FOLT3, URIC3, FEIBC, FERR3, B12, FT4M #### [facility] [address] [place] [address] #### HVAAO, ANA3, HEPAN, B2GPG, B2GPM, B2GPA #### [address] [id number] #### LUPUS #### The performing lab is in the report. Abs Neutrophile Cnt 7.7 10*3/uL High 1.8-7.0 [facility] Comment on above: Performed By: #### A PTT, TSH5, HEMDF, LDH3, DDI2, BMP3M, ESR, FOLT3, URIC3, FEIBC, FERR3, B12, FT4M #### [facility] [address] [place] [address] #### HVAAO, ANA3, HEPAN, B2GPG, B2GPM, B2GPA #### [address] #### LUPUS #### The performing lab is in the report. Basophils/100 WBC (Bld) 0.9 % Normal 0.0-2.0 [facility] Comment on above: Performed By: #### A PTT, TSH5, HEMDF, LDH3, DDI2, BMP3M, ESR, FOLT3, URIC3, FEIBC, FERR3, B12, FT4M #### [facility] [address] [place] [address] #### HVAAO, ANA3, HEPAN, B2GPG, B2GPM, B2GPA #### [address] #### LUPUS #### The performing lab is in the report. Eosinophils (Bld) [#/Vol] 0.5 10*3/uL Normal 0.0-0.5 [facility] Comment on above: Performed By: #### A PTT, TSH5, HEMDF, LDH3, DDI2, BMP3M, ESR, FOLT3, URIC3, FEIBC, FERR3, B12, FT4M #### [facility] [address] [place] #### HVAAO, ANA3, HEPAN, B2GPG, B2GPM, B2GPA #### [address] #### LUPUS #### The performing lab is in the report. Eosinophils/100 WBC (Bld) 4.4 % Normal 1.0-6.0 [facility] Comment on above: Performed By: #### A PTT, TSH5, HEMDF, LDH3, DDI2, BMP3M, ESR, FOLT3, URIC3, FEIBC, FERR3, B12, FT4M #### [address] [place] #### HVAAO, ANA3, HEPAN, B2GPG, B2GPM, B2GPA #### [address] #### LUPUS #### The performing lab is in the report. Erythrocyte distribution width (RBC) [Ratio] 15.4 % High 11.5-14.5 [facility] Comment on above: Performed By: #### A PTT, TSH5, HEMDF, LDH3, DDI2, BMP3M, ESR, FOLT3, URIC3, FEIBC, FERR3, B12, FT4M #### [facility] [address] [place] [address] #### HVAAO, ANA3, HEPAN, B2GPG, B2GPM, B2GPA #### [address] #### LUPUS #### The performing lab is in the report. Granulocytes/100 WBC (Bld) 67.5 % Normal 40.0-80.0 [facility] Comment on above: Performed By: #### A PTT, TSH5, HEMDF, LDH3, DDI2, BMP3M, ESR, FOLT3, URIC3, FEIBC, FERR3, B12, FT4M #### [address] [place] #### HVAAO, ANA3, HEPAN, B2GPG, B2GPM, B2GPA #### [address] #### LUPUS #### The performing lab is in the report. Hematocrit (Bld) [Volume fraction] 39.5 % Normal 35.0-47.0 [facility] Comment on above: Performed By: #### A PTT, TSH5, HEMDF, LDH3, DDI2, BMP3M, ESR, FOLT3, URIC3, FEIBC, FERR3, B12, FT4M #### [address] [place] [address] #### HVAAO, ANA3, HEPAN, B2GPG, B2GPM, B2GPA #### [address] #### LUPUS #### The performing lab is in the report. Hemoglobin (Bld) [Mass/Vol] 12.9 g/dL Normal 11.7-16.0 [facility] Comment on above: Performed By: #### A PTT, TSH5, HEMDF, LDH3, DDI2, BMP3M, ESR, FOLT3, URIC3, FEIBC, FERR3, B12, FT4M #### [place] [address] [place] [address] #### HVAAO, ANA3, HEPAN, B2GPG, B2GPM, B2GPA #### [address] #### LUPUS #### The performing lab is in the report. Lymphocytes (Bld) [#/Vol] 2.2 10*3/uL Normal 1.0-4.3 [facility] Comment on above: Performed By: #### A PTT, TSH5, HEMDF, LDH3, DDI2, BMP3M, ESR, FOLT3, URIC3, FEIBC, FERR3, B12, FT4M #### [address] [place] [address] #### HVAAO, ANA3, HEPAN, B2GPG, B2GPM, B2GPA #### [address] #### LUPUS #### The performing lab is in the report. Lymphocytes/100 WBC (Bld) 19.1 % Low 20.0-40.0 [facility] Comment on above: Performed By: #### A PTT, TSH5, HEMDF, LDH3, DDI2, BMP3M, ESR, FOLT3, URIC3, FEIBC, FERR3, B12, FT4M #### [address] [place] [address] #### HVAAO, ANA3, HEPAN, B2GPG, B2GPM, B2GPA #### [address] #### LUPUS #### The performing lab is in the report. MCH (RBC) [Entitic mass] 30.1 pg Normal 26.0-34.0 [facility] Comment on above: Performed By: #### A PTT, TSH5, HEMDF, LDH3, DDI2, BMP3M, ESR, FOLT3, URIC3, FEIBC, FERR3, B12, FT4M #### [facility] [address] [place] [address] #### HVAAO, ANA3, HEPAN, B2GPG, B2GPM, B2GPA #### [address] #### LUPUS #### The performing lab is in the report. MCHC 32.6 % Normal 32.0-36.0 [facility] Comment on above: Performed By: #### A PTT, TSH5, HEMDF, LDH3, DDI2, BMP3M, ESR, FOLT3, URIC3, FEIBC, FERR3, B12, FT4M #### [address] [place] #### HVAAO, ANA3, HEPAN, B2GPG, B2GPM, B2GPA #### [address] #### LUPUS #### The performing lab is in the report. MCV (RBC) [Entitic vol] 92.4 fL Normal 79.0-98.0 [facility] Comment on above: Performed By: #### A PTT, TSH5, HEMDF, LDH3, DDI2, BMP3M, ESR, FOLT3, URIC3, FEIBC, FERR3, B12, FT4M #### [place] [address] [place] [address] #### HVAAO, ANA3, HEPAN, B2GPG, B2GPM, B2GPA #### [address] #### LUPUS #### The performing lab is in the report. Monocytes (Bld) [#/Vol] 0.9 10*3/uL High 0.0-0.8 [facility] Comment on above: Performed By: #### A PTT, TSH5, HEMDF, LDH3, DDI2, BMP3M, ESR, FOLT3, URIC3, FEIBC, FERR3, B12, FT4M #### [facility] [address] [place] [address] #### HVAAO, ANA3, HEPAN, B2GPG, B2GPM, B2GPA #### [address] #### LUPUS #### The performing lab is in the report. Monocytes/100 WBC (Bld) 8.1 % Normal 2.0-10.0 [facility] Comment on above: Performed By: #### A PTT, TSH5, HEMDF, LDH3, DDI2, BMP3M, ESR, FOLT3, URIC3, FEIBC, FERR3, B12, FT4M #### [address] [facility] [place] [address] #### HVAAO, ANA3, HEPAN, B2GPG, B2GPM, B2GPA #### [address] #### LUPUS #### The performing lab is in the report. Platelet mean volume (Bld) [Entitic vol] 8.8 fL Normal 7.4-10.4 [facility] Comment on above: Performed By: #### A PTT, TSH5, HEMDF, LDH3, DDI2, BMP3M, ESR, FOLT3, URIC3, FEIBC, FERR3, B12, FT4M #### [address] [place] [address] #### HVAAO, ANA3, HEPAN, B2GPG, B2GPM, B2GPA #### [address] #### LUPUS #### The performing lab is in the report. Platelets (Bld) [#/Vol] 260 10*3/uL Normal 140-440 [facility] Comment on above: Performed By: #### A PTT, TSH5, HEMDF, LDH3, DDI2, BMP3M, ESR, FOLT3, URIC3, FEIBC, FERR3, B12, FT4M #### [address] [place] [address] #### HVAAO, ANA3, HEPAN, B2GPG, B2GPM, B2GPA #### [address] #### LUPUS #### The performing lab is in the report. RBC (Bld) [#/Vol] 4.27 10*6/uL Normal 3.80-5.20 [facility] Comment on above: Performed By: #### A PTT, TSH5, HEMDF, LDH3, DDI2, BMP3M, ESR, FOLT3, URIC3, FEIBC, FERR3, B12, FT4M #### [address] [facility] [place] [address] #### HVAAO, ANA3, HEPAN, B2GPG, B2GPM, B2GPA #### [address] #### LUPUS #### The performing lab is in the report. WBC (Bld) [#/Vol] 11.4 10*3/uL High 3.6-10.7 [facility] Comment on above: Performed By: #### A PTT, TSH5, HEMDF, LDH3, DDI2, BMP3M, ESR, FOLT3, URIC3, FEIBC, FERR3, B12, FT4M #### [address] [facility] [place] [address] #### HVAAO, ANA3, HEPAN, B2GPG, B2GPM, B2GPA #### [address] #### LUPUS #### The performing lab is in the report. Basic Metabolic Panelon 10-23 Calcium [Mass/Vol] 9.1 mg/dL Normal 8.4-10.4 [facility] Comment on above: Performed By: #### A PTT, TSH5, HEMDF, LDH3, DDI2, BMP3M, ESR, FOLT3, URIC3, FEIBC, FERR3, B12, FT4M #### [address] [place] [address] #### HVAAO, ANA3, HEPAN, B2GPG, B2GPM, B2GPA #### [address] #### LUPUS #### The performing lab is in the report. Anion gap [Moles/Vol] 6 mmol/L Normal 3-13 [facility] Comment on above: Performed By: #### A PTT, TSH5, HEMDF, LDH3, DDI2, BMP3M, ESR, FOLT3, URIC3, FEIBC, FERR3, B12, FT4M #### [facility] [address] [place] #### HVAAO, ANA3, HEPAN, B2GPG, B2GPM, B2GPA #### [address] #### LUPUS #### The performing lab is in the report. CO2 [Moles/Vol] 28 mmol/L Normal 22-30 [facility] Comment on above: Performed By: #### A PTT, TSH5, HEMDF, LDH3, DDI2, BMP3M, ESR, FOLT3, URIC3, FEIBC, FERR3, B12, FT4M #### [facility] [address] [place] [address] #### HVAAO, ANA3, HEPAN, B2GPG, B2GPM, B2GPA #### [address] #### LUPUS #### The performing lab is in the report. Creatinine [Mass/Vol] 0.90 mg/dL Normal 0.52-1.25 [facility] Comment on above: Performed By: #### A PTT, TSH5, HEMDF, LDH3, DDI2, BMP3M, ESR, FOLT3, URIC3, FEIBC, FERR3, B12, FT4M #### [facility] [address] [place] #### HVAAO, ANA3, HEPAN, B2GPG, B2GPM, B2GPA #### [address] [place] [address] #### LUPUS #### The performing lab is in the report. GFR/1.73 sq M.predicted among blacks MDRD (S/P/Bld) [Vol rate/Area] 70.7 mL/min/{1.73_m2} Normal >60 [facility] Comment on above: Performed By: #### A PTT, TSH5, HEMDF, LDH3, DDI2, BMP3M, ESR, FOLT3, URIC3, FEIBC, FERR3, B12, FT4M #### [facility] [address] [place] [address] #### HVAAO, ANA3, HEPAN, B2GPG, B2GPM, B2GPA #### [address] [address] #### LUPUS #### The performing lab is in the report. GFR/1.73 sq M.predicted among non-blacks MDRD (S/P/Bld) [Vol rate/Area] 61.0 mL/min/{1.73_m2} Normal >60 [facility] Comment on above: Result Comment: KDIG [...] FOLT3, URIC3, FEIBC, FERR3, B12, FT4M #### [facility] [address] [place], [place] #### HVAAO, ANA3, HEPAN, B2GPG, B2GPM, B2GPA #### [address] #### LUPUS #### The performing lab is in the report. Glucose [Mass/Vol] 136 mg/dL High 70-100 [facility] Comment on above: Performed By: #### A PTT, TSH5, HEMDF, LDH3, DDI2, BMP3M, ESR, FOLT3, URIC3, FEIBC, FERR3, B12, FT4M #### [facility] [address] [place] #### HVAAO, ANA3, HEPAN, B2GPG, B2GPM, B2GPA #### [address] #### LUPUS #### The performing lab is in the report. Urea nitrogen [Mass/Vol] 14 mg/dL Normal 9-20 [facility] Comment on above: Performed By: #### A PTT, TSH5, HEMDF, LDH3, DDI2, BMP3M, ESR, FOLT3, URIC3, FEIBC, FERR3, B12, FT4M #### [facility] [address] [place] #### HVAAO, ANA3, HEPAN, B2GPG, B2GPM, B2GPA #### [address] #### LUPUS #### The performing lab is in the report. Chloride [Moles/Vol] 107 mmol/L Normal 98-107 [facility] Comment on above: Performed By: #### A PTT, TSH5, HEMDF, LDH3, DDI2, BMP3M, ESR, FOLT3, URIC3, FEIBC, FERR3, B12, FT4M #### [facility] [address] [place] #### HVAAO, ANA3, HEPAN, B2GPG, B2GPM, B2GPA #### [address] #### LUPUS #### The performing lab is in the report. Potassium [Moles/Vol] 3.7 mmol/L Normal 3.5-5.1 [facility] Comment on above: Performed By: #### A PTT, TSH5, HEMDF, LDH3, DDI2, BMP3M, ESR, FOLT3, URIC3, FEIBC, FERR3, B12, FT4M #### [place] [address] [place] [address] #### HVAAO, ANA3, HEPAN, B2GPG, B2GPM, B2GPA #### [address] #### LUPUS #### The performing lab is in the report. Sodium [Moles/Vol] 142 mmol/L Normal 135-145 [facility] Comment on above: Performed By: #### A PTT, TSH5, HEMDF, LDH3, DDI2, BMP3M, ESR, FOLT3, URIC3, FEIBC, FERR3, B12, FT4M #### [place] [address] [place] #### HVAAO, ANA3, HEPAN, B2GPG, B2GPM, B2GPA #### [address] #### LUPUS #### The performing lab is in the report. Hemogram w/ Autodiffon 11-08 Abs Baso Cnt 0.1 10*3/uL Normal 0.0-0.2 [facility] Comment on above: Performed By: #### A PTT, TSH5, HEMDF, LDH3, DDI2, BMP3M, ESR, FOLT3, URIC3, FEIBC, FERR3, B12, FT4M #### [place] [address] [place] [address] #### HVAAO, ANA3, HEPAN, B2GPG, B2GPM, B2GPA #### [address] #### LUPUS #### The performing lab is in the report. Abs Neutrophile Cnt 8.0 10*3/uL High 1.8-7.0 [facility] Comment on above: Performed By: #### A PTT, TSH5, HEMDF, LDH3, DDI2, BMP3M, ESR, FOLT3, URIC3, FEIBC, FERR3, B12, FT4M #### [facility] [address] [place] [address] #### HVAAO, ANA3, HEPAN, B2GPG, B2GPM, B2GPA #### [address] [id number] #### LUPUS #### The performing lab is in the report. Basophils/100 WBC (Bld) 0.5 % Normal 0.0-2.0 [facility] Comment on above: Performed By: #### A PTT, TSH5, HEMDF, LDH3, DDI2, BMP3M, ESR, FOLT3, URIC3, FEIBC, FERR3, B12, FT4M #### [place] [address] [place] [address] #### HVAAO, ANA3, HEPAN, B2GPG, B2GPM, B2GPA #### [address] #### LUPUS #### The performing lab is in the report. Eosinophils (Bld) [#/Vol] 0.3 10*3/uL Normal 0.0-0.5 [facility] Comment on above: Performed By: #### A PTT, TSH5, HEMDF, LDH3, DDI2, BMP3M, ESR, FOLT3, URIC3, FEIBC, FERR3, B12, FT4M #### [address] [place] [address] #### HVAAO, ANA3, HEPAN, B2GPG, B2GPM, B2GPA #### [address] [id number] #### LUPUS #### The performing lab is in the report. Eosinophils/100 WBC (Bld) 2.9 % Normal 1.0-6.0 [facility] Comment on above: Performed By: #### A PTT, TSH5, HEMDF, LDH3, DDI2, BMP3M, ESR, FOLT3, URIC3, FEIBC, FERR3, B12, FT4M #### [facility] [address] [place] [address] #### HVAAO, ANA3, HEPAN, B2GPG, B2GPM, B2GPA #### [address] #### LUPUS #### The performing lab is in the report. Erythrocyte distribution width (RBC) [Ratio] 15.2 % High 11.5-14.5 [facility] Comment on above: Performed By: #### A PTT, TSH5, HEMDF, LDH3, DDI2, BMP3M, ESR, FOLT3, URIC3, FEIBC, FERR3, B12, FT4M #### [facility] [address] [place] [address] #### HVAAO, ANA3, HEPAN, B2GPG, B2GPM, B2GPA #### [address] #### LUPUS #### The performing lab is in the report. Granulocytes/100 WBC (Bld) 72.6 % Normal 40.0-80.0 [facility] Comment on above: Performed By: #### A PTT, TSH5, HEMDF, LDH3, DDI2, BMP3M, ESR, FOLT3, URIC3, FEIBC, FERR3, B12, FT4M #### [place] [address] [place] [address] #### HVAAO, ANA3, HEPAN, B2GPG, B2GPM, B2GPA #### [address] #### LUPUS #### The performing lab is in the report. Hematocrit (Bld) [Volume fraction] 39.8 % Normal 35.0-47.0 [facility] Comment on above: Performed By: #### A PTT, TSH5, HEMDF, LDH3, DDI2, BMP3M, ESR, FOLT3, URIC3, FEIBC, FERR3, B12, FT4M #### [place] [address] [place] [address] #### HVAAO, ANA3, HEPAN, B2GPG, B2GPM, B2GPA #### [address] #### LUPUS #### The performing lab is in the report. Hemoglobin (Bld) [Mass/Vol] 13.0 g/dL Normal 11.7-16.0 [facility] Comment on above: Performed By: #### A PTT, TSH5, HEMDF, LDH3, DDI2, BMP3M, ESR, FOLT3, URIC3, FEIBC, FERR3, B12, FT4M #### [address] [place] #### HVAAO, ANA3, HEPAN, B2GPG, B2GPM, B2GPA #### [address] #### LUPUS #### The performing lab is in the report. Lymphocytes (Bld) [#/Vol] 1.8 10*3/uL Normal 1.0-4.3 [facility] Comment on above: Performed By: #### A PTT, TSH5, HEMDF, LDH3, DDI2, BMP3M, ESR, FOLT3, URIC3, FEIBC, FERR3, B12, FT4M #### [address] [place] #### HVAAO, ANA3, HEPAN, B2GPG, B2GPM, B2GPA #### [address] #### LUPUS #### The performing lab is in the report. Lymphocytes/100 WBC (Bld) 16.1 % Low 20.0-40.0 [facility] Comment on above: Performed By: #### A PTT, TSH5, HEMDF, LDH3, DDI2, BMP3M, ESR, FOLT3, URIC3, FEIBC, FERR3, B12, FT4M #### [facility] [address] [place] [address] #### HVAAO, ANA3, HEPAN, B2GPG, B2GPM, B2GPA #### [address] #### LUPUS #### The performing lab is in the report. MCH (RBC) [Entitic mass] 30.4 pg Normal 26.0-34.0 [facility] Comment on above: Performed By: #### A PTT, TSH5, HEMDF, LDH3, DDI2, BMP3M, ESR, FOLT3, URIC3, FEIBC, FERR3, B12, FT4M #### [facility] [address] [place] #### HVAAO, ANA3, HEPAN, B2GPG, B2GPM, B2GPA #### [address] #### LUPUS #### The performing lab is in the report. MCHC 32.8 % Normal 32.0-36.0 [facility] Comment on above: Performed By: #### A PTT, TSH5, HEMDF, LDH3, DDI2, BMP3M, ESR, FOLT3, URIC3, FEIBC, FERR3, B12, FT4M #### [place] [address] [facility] [place] #### HVAAO, ANA3, HEPAN, B2GPG, B2GPM, B2GPA #### [address] #### LUPUS #### The performing lab is in the report. MCV (RBC) [Entitic vol] 92.6 fL Normal 79.0-98.0 [facility] Comment on above: Performed By: #### A PTT, TSH5, HEMDF, LDH3, DDI2, BMP3M, ESR, FOLT3, URIC3, FEIBC, FERR3, B12, FT4M #### [place] [address] [place] #### HVAAO, ANA3, HEPAN, B2GPG, B2GPM, B2GPA #### [address] #### LUPUS #### The performing lab is in the report. Monocytes (Bld) [#/Vol] 0.9 10*3/uL High 0.0-0.8 [facility] Comment on above: Performed By: #### A PTT, TSH5, HEMDF, LDH3, DDI2, BMP3M, ESR, FOLT3, URIC3, FEIBC, FERR3, B12, FT4M #### [address] [place] [address] #### HVAAO, ANA3, HEPAN, B2GPG, B2GPM, B2GPA #### [address] #### LUPUS #### The performing lab is in the report. Monocytes/100 WBC (Bld) 7.9 % Normal 2.0-10.0 [facility] Comment on above: Performed By: #### A PTT, TSH5, HEMDF, LDH3, DDI2, BMP3M, ESR, FOLT3, URIC3, FEIBC, FERR3, B12, FT4M #### [facility] [address] [place] [address] #### HVAAO, ANA3, HEPAN, B2GPG, B2GPM, B2GPA #### [address] #### LUPUS #### The performing lab is in the report. Platelet mean volume (Bld) [Entitic vol] 8.7 fL Normal 7.4-10.4 [facility] Comment on above: Performed By: #### A PTT, TSH5, HEMDF, LDH3, DDI2, BMP3M, ESR, FOLT3, URIC3, FEIBC, FERR3, B12, FT4M #### [facility] [address] [place] [address] #### HVAAO, ANA3, HEPAN, B2GPG, B2GPM, B2GPA #### [address] #### LUPUS #### The performing lab is in the report. Platelets (Bld) [#/Vol] 236 10*3/uL Normal 140-440 [facility] Comment on above: Performed By: #### A PTT, TSH5, HEMDF, LDH3, DDI2, BMP3M, ESR, FOLT3, URIC3, FEIBC, FERR3, B12, FT4M #### [facility] [address] [place] [address] #### HVAAO, ANA3, HEPAN, B2GPG, B2GPM, B2GPA #### [address] #### LUPUS #### The performing lab is in the report. RBC (Bld) [#/Vol] 4.29 10*6/uL Normal 3.80-5.20 [facility] Comment on above: Performed By: #### A PTT, TSH5, HEMDF, LDH3, DDI2, BMP3M, ESR, FOLT3, URIC3, FEIBC, FERR3, B12, FT4M #### [facility] [address] [place] [address] #### HVAAO, ANA3, HEPAN, B2GPG, B2GPM, B2GPA #### [address] #### LUPUS #### The performing lab is in the report. WBC (Bld) [#/Vol] 11.0 10*3/uL High 3.6-10.7 [facility] Comment on above: Performed By: #### A PTT, TSH5, HEMDF, LDH3, DDI2, BMP3M, ESR, FOLT3, URIC3, FEIBC, FERR3, B12, FT4M #### [facility] [address] [place] [address] #### HVAAO, ANA3, HEPAN, B2GPG, B2GPM, B2GPA #### [address] #### LUPUS #### The performing lab is in the report. APTTon 11-07-2021 aPTT Coag (Bld) [Time] 29.9 s Normal 20.0-30.5 [facility] Comment on above: Result Comment: NOTE : The therapeutic time for Heparin anticoagulation, based on Xa activity inhibition, is an APTT of 46-80 seconds. Performed By: #### A PTT, TSH5, HEMDF, LDH3, DDI2, BMP3M, ESR, FOLT3, URIC3, FEIBC, FERR3, B12, FT4M #### [facility] [address] [place] [address] #### HVAAO, ANA3, HEPAN, B2GPG, B2GPM, B2GPA #### [address] #### LUPUS #### The performing lab is in the report. Basic Metabolic Panelon 10-23 Calcium [Mass/Vol] 9.1 mg/dL Normal 8.4-10.4 [facility] Comment on above: Performed By: #### A PTT, TSH5, HEMDF, LDH3, DDI2, BMP3M, ESR, FOLT3, URIC3, FEIBC, FERR3, B12, FT4M #### [facility] [address] [place] [address] #### HVAAO, ANA3, HEPAN, B2GPG, B2GPM, B2GPA #### [address] #### LUPUS #### The performing lab is in the report. Anion gap [Moles/Vol] 5 mmol/L Normal 3-13 [facility] Comment on above: Performed By: #### A PTT, TSH5, HEMDF, LDH3, DDI2, BMP3M, ESR, FOLT3, URIC3, FEIBC, FERR3, B12, FT4M #### [facility] [address] [place] [address] #### HVAAO, ANA3, HEPAN, B2GPG, B2GPM, B2GPA #### [address] #### LUPUS #### The performing lab is in the report. CO2 [Moles/Vol] 27 mmol/L Normal 22-30 [facility] Comment on above: Performed By: #### A PTT, TSH5, HEMDF, LDH3, DDI2, BMP3M, ESR, FOLT3, URIC3, FEIBC, FERR3, B12, FT4M #### [facility] [address] [place] [address] #### HVAAO, ANA3, HEPAN, B2GPG, B2GPM, B2GPA #### [address] #### LUPUS #### The performing lab is in the report. Creatinine [Mass/Vol] 0.87 mg/dL Normal 0.52-1.25 [facility] Comment on above: Performed By: #### A PTT, TSH5, HEMDF, LDH3, DDI2, BMP3M, ESR, FOLT3, URIC3, FEIBC, FERR3, B12, FT4M #### [address] [facility] [place] [address] #### HVAAO, ANA3, HEPAN, B2GPG, B2GPM, B2GPA #### [address] #### LUPUS #### The performing lab is in the report. GFR/1.73 sq M.predicted among blacks MDRD (S/P/Bld) [Vol rate/Area] 73.7 mL/min/{1.73_m2} Normal >60 [facility] Comment on above: Performed By: #### A PTT, TSH5, HEMDF, LDH3, DDI2, BMP3M, ESR, FOLT3, URIC3, FEIBC, FERR3, B12, FT4M #### [address] [place] [address] #### HVAAO, ANA3, HEPAN, B2GPG, B2GPM, B2GPA #### [address] [place] [address] #### LUPUS #### The performing lab is in the report. GFR/1.73 sq M.predicted among non-blacks MDRD (S/P/Bld) [Vol rate/Area] 63.6 mL/min/{1.73_m2} Normal >60 [facility] Comment on above: Result Comment: KDIG [...] FOLT3, URIC3, FEIBC, FERR3, B12, FT4M #### [facility] [employer] [facility] [address] [place] [address] #### HVAAO, ANA3, HEPAN, B2GPG, B2GPM, B2GPA #### [facility] [employer]) [address] [address] #### LUPUS #### The performing lab is in the report. Glucose [Mass/Vol] 111 mg/dL High 70-100 [facility] Comment on above: Performed By: #### A PTT, TSH5, HEMDF, LDH3, DDI2, BMP3M, ESR, FOLT3, URIC3, FEIBC, FERR3, B12, FT4M #### [facility] [employer]) [facility] [address] [place] [address] #### HVAAO, ANA3, HEPAN, B2GPG, B2GPM, B2GPA #### [address] #### LUPUS #### The performing lab is in the report. Urea nitrogen [Mass/Vol] 12 mg/dL Normal 9-20 [facility] Comment on above: Performed By: #### A PTT, TSH5, HEMDF, LDH3, DDI2, BMP3M, ESR, FOLT3, URIC3, FEIBC, FERR3, B12, FT4M #### [facility] [address] [place] [address] #### HVAAO, ANA3, HEPAN, B2GPG, B2GPM, B2GPA #### [address] #### LUPUS #### The performing lab is in the report. Chloride [Moles/Vol] 109 mmol/L High 98-107 [facility] Comment on above: Performed By: #### A PTT, TSH5, HEMDF, LDH3, DDI2, BMP3M, ESR, FOLT3, URIC3, FEIBC, FERR3, B12, FT4M #### [place] [address] [place] [address] #### HVAAO, ANA3, HEPAN, B2GPG, B2GPM, B2GPA #### [address] #### LUPUS #### The performing lab is in the report. Potassium [Moles/Vol] 3.9 mmol/L Normal 3.5-5.1 [facility] Comment on above: Performed By: #### A PTT, TSH5, HEMDF, LDH3, DDI2, BMP3M, ESR, FOLT3, URIC3, FEIBC, FERR3, B12, FT4M #### [place] [address] [place] [address] #### HVAAO, ANA3, HEPAN, B2GPG, B2GPM, B2GPA #### [address] #### LUPUS #### The performing lab is in the report. Sodium [Moles/Vol] 141 mmol/L Normal 135-145 [facility] Comment on above: Performed By: #### A PTT, TSH5, HEMDF, LDH3, DDI2, BMP3M, ESR, FOLT3, URIC3, FEIBC, FERR3, B12, FT4M #### [facility] [address] [place] [address] #### HVAAO, ANA3, HEPAN, B2GPG, B2GPM, B2GPA #### [address] #### LUPUS #### The performing lab is in the report. Hemogram w/ Autodiffon 11-07 Abs Baso Cnt 0.0 10*3/uL Normal 0.0-0.2 [facility] Comment on above: Performed By: #### A PTT, TSH5, HEMDF, LDH3, DDI2, BMP3M, ESR, FOLT3, URIC3, FEIBC, FERR3, B12, FT4M #### [place] [address] [place] [address] #### HVAAO, ANA3, HEPAN, B2GPG, B2GPM, B2GPA #### [address] [address] #### LUPUS #### The performing lab is in the report. Abs Neutrophile Cnt 6.0 10*3/uL Normal 1.8-7.0 [facility] Comment on above: Performed By: #### A PTT, TSH5, HEMDF, LDH3, DDI2, BMP3M, ESR, FOLT3, URIC3, FEIBC, FERR3, B12, FT4M #### [address] [place] [address] #### HVAAO, ANA3, HEPAN, B2GPG, B2GPM, B2GPA #### [address] #### LUPUS #### The performing lab is in the report. Basophils/100 WBC (Bld) 0.5 % Normal 0.0-2.0 [facility] Comment on above: Performed By: #### A PTT, TSH5, HEMDF, LDH3, DDI2, BMP3M, ESR, FOLT3, URIC3, FEIBC, FERR3, B12, FT4M #### [facility] [address] [place] [address] #### HVAAO, ANA3, HEPAN, B2GPG, B2GPM, B2GPA #### [address] #### LUPUS #### The performing lab is in the report. Eosinophils (Bld) [#/Vol] 0.4 10*3/uL Normal 0.0-0.5 [facility] Comment on above: Performed By: #### A PTT, TSH5, HEMDF, LDH3, DDI2, BMP3M, ESR, FOLT3, URIC3, FEIBC, FERR3, B12, FT4M #### [address] [place] [address] #### HVAAO, ANA3, HEPAN, B2GPG, B2GPM, B2GPA #### [address] #### LUPUS #### The performing lab is in the report. Eosinophils/100 WBC (Bld) 4.0 % Normal 1.0-6.0 [facility] Comment on above: Performed By: #### A PTT, TSH5, HEMDF, LDH3, DDI2, BMP3M, ESR, FOLT3, URIC3, FEIBC, FERR3, B12, FT4M #### [address] [place] [address] #### HVAAO, ANA3, HEPAN, B2GPG, B2GPM, B2GPA #### [address] #### LUPUS #### The performing lab is in the report. Erythrocyte distribution width (RBC) [Ratio] 15.1 % High 11.5-14.5 [facility] Comment on above: Performed By: #### A PTT, TSH5, HEMDF, LDH3, DDI2, BMP3M, ESR, FOLT3, URIC3, FEIBC, FERR3, B12, FT4M #### [place] [address] [place] [address] #### HVAAO, ANA3, HEPAN, B2GPG, B2GPM, B2GPA #### [address] #### LUPUS #### The performing lab is in the report. Granulocytes/100 WBC (Bld) 64.8 % Normal 40.0-80.0 [facility] Comment on above: Performed By: #### A PTT, TSH5, HEMDF, LDH3, DDI2, BMP3M, ESR, FOLT3, URIC3, FEIBC, FERR3, B12, FT4M #### [address] [place] #### HVAAO, ANA3, HEPAN, B2GPG, B2GPM, B2GPA #### [address] #### LUPUS #### The performing lab is in the report. Hematocrit (Bld) [Volume fraction] 42.6 % Normal 35.0-47.0 [facility] Comment on above: Performed By: #### A PTT, TSH5, HEMDF, LDH3, DDI2, BMP3M, ESR, FOLT3, URIC3, FEIBC, FERR3, B12, FT4M #### [address] [place] [address] #### HVAAO, ANA3, HEPAN, B2GPG, B2GPM, B2GPA #### [address] #### LUPUS #### The performing lab is in the report. Hemoglobin (Bld) [Mass/Vol] 13.9 g/dL Normal 11.7-16.0 [facility] Comment on above: Performed By: #### A PTT, TSH5, HEMDF, LDH3, DDI2, BMP3M, ESR, FOLT3, URIC3, FEIBC, FERR3, B12, FT4M #### [place] [address] [facility] [place] [address] #### HVAAO, ANA3, HEPAN, B2GPG, B2GPM, B2GPA #### [address] #### LUPUS #### The performing lab is in the report. Lymphocytes (Bld) [#/Vol] 2.1 10*3/uL Normal 1.0-4.3 [facility] Comment on above: Performed By: #### A PTT, TSH5, HEMDF, LDH3, DDI2, BMP3M, ESR, FOLT3, URIC3, FEIBC, FERR3, B12, FT4M #### [address] [facility] [place] [address] #### HVAAO, ANA3, HEPAN, B2GPG, B2GPM, B2GPA #### [address] #### LUPUS #### The performing lab is in the report. Lymphocytes/100 WBC (Bld) 22.8 % Normal 20.0-40.0 [facility] Comment on above: Performed By: #### A PTT, TSH5, HEMDF, LDH3, DDI2, BMP3M, ESR, FOLT3, URIC3, FEIBC, FERR3, B12, FT4M #### [address] [facility] [place] [address] #### HVAAO, ANA3, HEPAN, B2GPG, B2GPM, B2GPA #### [address] #### LUPUS #### The performing lab is in the report. MCH (RBC) [Entitic mass] 30.2 pg Normal 26.0-34.0 [facility] Comment on above: Performed By: #### A PTT, TSH5, HEMDF, LDH3, DDI2, BMP3M, ESR, FOLT3, URIC3, FEIBC, FERR3, B12, FT4M #### [address] [place] [id number] #### HVAAO, ANA3, HEPAN, B2GPG, B2GPM, B2GPA #### [address] #### LUPUS #### The performing lab is in the report. MCHC 32.7 % Normal 32.0-36.0 [facility] Comment on above: Performed By: #### A PTT, TSH5, HEMDF, LDH3, DDI2, BMP3M, ESR, FOLT3, URIC3, FEIBC, FERR3, B12, FT4M #### [facility] [address] [place] #### HVAAO, ANA3, HEPAN, B2GPG, B2GPM, B2GPA #### [address] #### LUPUS #### The performing lab is in the report. MCV (RBC) [Entitic vol] 92.4 fL Normal 79.0-98.0 [facility] Comment on above: Performed By: #### A PTT, TSH5, HEMDF, LDH3, DDI2, BMP3M, ESR, FOLT3, URIC3, FEIBC, FERR3, B12, FT4M #### [facility] [address] [place] #### HVAAO, ANA3, HEPAN, B2GPG, B2GPM, B2GPA #### [address] #### LUPUS #### The performing lab is in the report. Monocytes (Bld) [#/Vol] 0.7 10*3/uL Normal 0.0-0.8 [facility] Comment on above: Performed By: #### A PTT, TSH5, HEMDF, LDH3, DDI2, BMP3M, ESR, FOLT3, URIC3, FEIBC, FERR3, B12, FT4M #### [facility] [address] [place] #### HVAAO, ANA3, HEPAN, B2GPG, B2GPM, B2GPA #### [address] #### LUPUS #### The performing lab is in the report. Monocytes/100 WBC (Bld) 7.9 % Normal 2.0-10.0 [facility] Comment on above: Performed By: #### A PTT, TSH5, HEMDF, LDH3, DDI2, BMP3M, ESR, FOLT3, URIC3, FEIBC, FERR3, B12, FT4M #### [facility] [address] [place] [address] #### HVAAO, ANA3, HEPAN, B2GPG, B2GPM, B2GPA #### [address] #### LUPUS #### The performing lab is in the report. Platelet mean volume (Bld) [Entitic vol] 8.7 fL Normal 7.4-10.4 [facility] Comment on above: Performed By: #### A PTT, TSH5, HEMDF, LDH3, DDI2, BMP3M, ESR, FOLT3, URIC3, FEIBC, FERR3, B12, FT4M #### [facility] [address] [place] [address] #### HVAAO, ANA3, HEPAN, B2GPG, B2GPM, B2GPA #### [address] #### LUPUS #### The performing lab is in the report. Platelets (Bld) [#/Vol] 232 10*3/uL Normal 140-440 [facility] Comment on above: Performed By: #### A PTT, TSH5, HEMDF, LDH3, DDI2, BMP3M, ESR, FOLT3, URIC3, FEIBC, FERR3, B12, FT4M #### [facility] [address] [place] [address] #### HVAAO, ANA3, HEPAN, B2GPG, B2GPM, B2GPA #### [address] #### LUPUS #### The performing lab is in the report. RBC (Bld) [#/Vol] 4.61 10*6/uL Normal 3.80-5.20 [facility] Comment on above: Performed By: #### A PTT, TSH5, HEMDF, LDH3, DDI2, BMP3M, ESR, FOLT3, URIC3, FEIBC, FERR3, B12, FT4M #### [facility] [address] [place] [address] #### HVAAO, ANA3, HEPAN, B2GPG, B2GPM, B2GPA #### [address] #### LUPUS #### The performing lab is in the report. WBC (Bld) [#/Vol] 9.2 10*3/uL Normal 3.6-10.7 [facility] Comment on above: Performed By: #### A PTT, TSH5, HEMDF, LDH3, DDI2, BMP3M, ESR, FOLT3, URIC3, FEIBC, FERR3, B12, FT4M #### [facility] [address] [place] [address] #### HVAAO, ANA3, HEPAN, B2GPG, B2GPM, B2GPA #### [address] #### LUPUS #### The performing lab [...] Real-time, RT-PCR This assay was developed by [employer] and distributed under an Emergency Use Authorization (EUA) granted by the FDA for the qualitative detection of nucleic acids from SARS-CoV-2, Influenza A, Influenza B, and Respiratory Syncytial Virus. Provider and patient fact sheets can be found at https://www.fda.gov/media /913543/download and https://www.fda.gov/media /147704/download. Expected Result: Not Detected _ Method: Real-time, RT-PCR This assay was developed by [employer] and distributed under an Emergency Use Authorization (EUA) granted by the FDA for the qualitative detection of nucleic acids from SARS-CoV-2, Influenza A, Influenza B, and Respiratory Syncytial Virus. Provider and patient fact sheets can be found at https://www.fda.gov/media /209763/download and https://www.fda.gov/media /261541/download. Normal [facility] Comment on above: Performed By: #### A PTT, TSH5, HEMDF, LDH3, DDI2, BMP3M, ESR, FOLT3, URIC3, FEIBC, FERR3, B12, FT4M #### [facility] [address] [place] [address] #### HVAAO, ANA3, HEPAN, B2GPG, B2GPM, B2GPA #### [address] [id number] #### LUPUS #### The performing lab is in the report. APTTon 11-06-2021 aPTT Coag (Bld) [Time] 28.1 s Normal 20.0-30.5 [facility] Comment on above: Result Comment: NOTE : The therapeutic time for Heparin anticoagulation, based on Xa activity inhibition, is an APTT of 46-80 seconds. Performed By: #### A PTT, TSH5, HEMDF, LDH3, DDI2, BMP3M, ESR, FOLT3, URIC3, FEIBC, FERR3, B12, FT4M #### [facility] [address] [place] [address] #### HVAAO, ANA3, HEPAN, B2GPG, B2GPM, B2GPA #### [address] [id number] #### LUPUS #### The performing lab is in the report. Basic Metabolic Panelon 02-1 5-2022 Anion gap [Moles/Vol] 6 mmol/L Normal 3-13 [facility] Comment on above: Performed By: #### A PTT, TSH5, HEMDF, LDH3, DDI2, BMP3M, ESR, FOLT3, URIC3, FEIBC, FERR3, B12, FT4M #### [place] [address] [place] [id number] #### HVAAO, ANA3, HEPAN, B2GPG, B2GPM, B2GPA #### [address] #### LUPUS #### The performing lab is in the report. Calcium [Mass/Vol] 9.0 mg/dL Normal 8.4-10.4 [facility] Comment on above: Performed By: #### A PTT, TSH5, HEMDF, LDH3, DDI2, BMP3M, ESR, FOLT3, URIC3, FEIBC, FERR3, B12, FT4M #### [address] [facility] [place] [address] #### HVAAO, ANA3, HEPAN, B2GPG, B2GPM, B2GPA #### [address] #### LUPUS #### The performing lab is in the report. CO2 [Moles/Vol] 28 mmol/L Normal 22-30 [facility] Comment on above: Performed By: #### A PTT, TSH5, HEMDF, LDH3, DDI2, BMP3M, ESR, FOLT3, URIC3, FEIBC, FERR3, B12, FT4M #### [address] [place] [address] #### HVAAO, ANA3, HEPAN, B2GPG, B2GPM, B2GPA #### [address] #### LUPUS #### The performing lab is in the report. Glucose [Mass/Vol] 105 mg/dL High 70-100 [facility] Comment on above: Performed By: #### A PTT, TSH5, HEMDF, LDH3, DDI2, BMP3M, ESR, FOLT3, URIC3, FEIBC, FERR3, B12, FT4M #### [place] [address] [place] [address] #### HVAAO, ANA3, HEPAN, B2GPG, B2GPM, B2GPA #### [address] #### LUPUS #### The performing lab is in the report. Urea nitrogen [Mass/Vol] 14 mg/dL Normal 9-20 [facility] Comment on above: Performed By: #### A PTT, TSH5, HEMDF, LDH3, DDI2, BMP3M, ESR, FOLT3, URIC3, FEIBC, FERR3, B12, FT4M #### [place] [address] [place] [address] #### HVAAO, ANA3, HEPAN, B2GPG, B2GPM, B2GPA #### [address] #### LUPUS #### The performing lab is in the report. Creatinine [Mass/Vol] 0.90 mg/dL Normal 0.52-1.25 [facility] Comment on above: Performed By: #### A PTT, TSH5, HEMDF, LDH3, DDI2, BMP3M, ESR, FOLT3, URIC3, FEIBC, FERR3, B12, FT4M #### [address] [place] [address] #### HVAAO, ANA3, HEPAN, B2GPG, B2GPM, B2GPA #### [address] #### LUPUS #### The performing lab is in the report. GFR/1.73 sq M.predicted among blacks MDRD (S/P/Bld) [Vol rate/Area] 70.7 mL/min/{1.73_m2} Normal >60 [facility] Comment on above: Performed By: #### A PTT, TSH5, HEMDF, LDH3, DDI2, BMP3M, ESR, FOLT3, URIC3, FEIBC, FERR3, B12, FT4M #### [facility] [address] [place] [address] #### HVAAO, ANA3, HEPAN, B2GPG, B2GPM, B2GPA #### [facility] [address] [place] [address] #### LUPUS #### The performing lab is in the report. GFR/1.73 sq M.predicted among non-blacks MDRD (S/P/Bld) [Vol rate/Area] 61.0 mL/min/{1.73_m2} Normal >60 [facility] Comment on above: Result Comment: KDIG [...] FOLT3, URIC3, FEIBC, FERR3, B12, FT4M #### [facility] [address] [place] [address] #### HVAAO, ANA3, HEPAN, B2GPG, B2GPM, B2GPA #### [facility] [address] [place] [address] #### LUPUS #### The performing lab is in the report. Potassium [Moles/Vol] 3.6 mmol/L Normal 3.5-5.1 [facility] Comment on above: Performed By: #### A PTT, TSH5, HEMDF, LDH3, DDI2, BMP3M, ESR, FOLT3, URIC3, FEIBC, FERR3, B12, FT4M #### [facility] [address] [place] [address] #### HVAAO, ANA3, HEPAN, B2GPG, B2GPM, B2GPA #### [address] #### LUPUS #### The performing lab is in the report. Chloride [Moles/Vol] 108 mmol/L High 98-107 [facility] Comment on above: Performed By: #### A PTT, TSH5, HEMDF, LDH3, DDI2, BMP3M, ESR, FOLT3, URIC3, FEIBC, FERR3, B12, FT4M #### [place] [address] [place] #### HVAAO, ANA3, HEPAN, B2GPG, B2GPM, B2GPA #### [address] #### LUPUS #### The performing lab is in the report. Sodium [Moles/Vol] 141 mmol/L Normal 135-145 [facility] Comment on above: Performed By: #### A PTT, TSH5, HEMDF, LDH3, DDI2, BMP3M, ESR, FOLT3, URIC3, FEIBC, FERR3, B12, FT4M #### [place] [address] [place] [address] #### HVAAO, ANA3, HEPAN, B2GPG, B2GPM, B2GPA #### [address] #### LUPUS #### The performing lab is in the report. Hemogram w/ Autodiffon 11-06 Abs Baso Cnt 0.1 10*3/uL Normal 0.0-0.2 [facility] Comment on above: Performed By: #### A PTT, TSH5, HEMDF, LDH3, DDI2, BMP3M, ESR, FOLT3, URIC3, FEIBC, FERR3, B12, FT4M #### [address] [place] #### HVAAO, ANA3, HEPAN, B2GPG, B2GPM, B2GPA #### [address] #### LUPUS #### The performing lab is in the report. Abs Neutrophile Cnt 5.9 10*3/uL Normal 1.8-7.0 [facility] Comment on above: Performed By: #### A PTT, TSH5, HEMDF, LDH3, DDI2, BMP3M, ESR, FOLT3, URIC3, FEIBC, FERR3, B12, FT4M #### [address] [place] [address] #### HVAAO, ANA3, HEPAN, B2GPG, B2GPM, B2GPA #### [address] #### LUPUS #### The performing lab is in the report. Basophils/100 WBC (Bld) 0.7 % Normal 0.0-2.0 [facility] Comment on above: Performed By: #### A PTT, TSH5, HEMDF, LDH3, DDI2, BMP3M, ESR, FOLT3, URIC3, FEIBC, FERR3, B12, FT4M #### [address] [facility] [place] #### HVAAO, ANA3, HEPAN, B2GPG, B2GPM, B2GPA #### [address] #### LUPUS #### The performing lab is in the report. Eosinophils (Bld) [#/Vol] 0.3 10*3/uL Normal 0.0-0.5 [facility] Comment on above: Performed By: #### A PTT, TSH5, HEMDF, LDH3, DDI2, BMP3M, ESR, FOLT3, URIC3, FEIBC, FERR3, B12, FT4M #### [address] [facility] [place] #### HVAAO, ANA3, HEPAN, B2GPG, B2GPM, B2GPA #### [address] #### LUPUS #### The performing lab is in the report. Eosinophils/100 WBC (Bld) 3.7 % Normal 1.0-6.0 [facility] Comment on above: Performed By: #### A PTT, TSH5, HEMDF, LDH3, DDI2, BMP3M, ESR, FOLT3, URIC3, FEIBC, FERR3, B12, FT4M #### [address] [place], [place] #### HVAAO, ANA3, HEPAN, B2GPG, B2GPM, B2GPA #### [address] #### LUPUS #### The performing lab is in the report. Erythrocyte distribution width (RBC) [Ratio] 15.2 % High 11.5-14.5 [facility] Comment on above: Performed By: #### A PTT, TSH5, HEMDF, LDH3, DDI2, BMP3M, ESR, FOLT3, URIC3, FEIBC, FERR3, B12, FT4M #### [address] [facility] [place] #### HVAAO, ANA3, HEPAN, B2GPG, B2GPM, B2GPA #### [address] #### LUPUS #### The performing lab is in the report. Granulocytes/100 WBC (Bld) 65.8 % Normal 40.0-80.0 [facility] Comment on above: Performed By: #### A PTT, TSH5, HEMDF, LDH3, DDI2, BMP3M, ESR, FOLT3, URIC3, FEIBC, FERR3, B12, FT4M #### [address] [facility] [place] #### HVAAO, ANA3, HEPAN, B2GPG, B2GPM, B2GPA #### [address] #### LUPUS #### The performing lab is in the report. Hematocrit (Bld) [Volume fraction] 39.8 % Normal 35.0-47.0 [facility] Comment on above: Performed By: #### A PTT, TSH5, HEMDF, LDH3, DDI2, BMP3M, ESR, FOLT3, URIC3, FEIBC, FERR3, B12, FT4M #### [facility] [address] [place] [address] #### HVAAO, ANA3, HEPAN, B2GPG, B2GPM, B2GPA #### [address] #### LUPUS #### The performing lab is in the report. Hemoglobin (Bld) [Mass/Vol] 13.2 g/dL Normal 11.7-16.0 [facility] Comment on above: Performed By: #### A PTT, TSH5, HEMDF, LDH3, DDI2, BMP3M, ESR, FOLT3, URIC3, FEIBC, FERR3, B12, FT4M #### [facility] [address] [place] [address] #### HVAAO, ANA3, HEPAN, B2GPG, B2GPM, B2GPA #### [address] #### LUPUS #### The performing lab is in the report. Lymphocytes (Bld) [#/Vol] 2.0 10*3/uL Normal 1.0-4.3 [facility] Comment on above: Performed By: #### A PTT, TSH5, HEMDF, LDH3, DDI2, BMP3M, ESR, FOLT3, URIC3, FEIBC, FERR3, B12, FT4M #### [address] [place] [address] #### HVAAO, ANA3, HEPAN, B2GPG, B2GPM, B2GPA #### [address] #### LUPUS #### The performing lab is in the report. Lymphocytes/100 WBC (Bld) 22.0 % Normal 20.0-40.0 [facility] Comment on above: Performed By: #### A PTT, TSH5, HEMDF, LDH3, DDI2, BMP3M, ESR, FOLT3, URIC3, FEIBC, FERR3, B12, FT4M #### [facility] [address] [place] [address] #### HVAAO, ANA3, HEPAN, B2GPG, B2GPM, B2GPA #### [address] #### LUPUS #### The performing lab is in the report. MCH (RBC) [Entitic mass] 30.1 pg Normal 26.0-34.0 [facility] Comment on above: Performed By: #### A PTT, TSH5, HEMDF, LDH3, DDI2, BMP3M, ESR, FOLT3, URIC3, FEIBC, FERR3, B12, FT4M #### [facility] [address] [place] [address] #### HVAAO, ANA3, HEPAN, B2GPG, B2GPM, B2GPA #### [address] #### LUPUS #### The performing lab is in the report. MCHC 33.2 % Normal 32.0-36.0 [facility] Comment on above: Performed By: #### A PTT, TSH5, HEMDF, LDH3, DDI2, BMP3M, ESR, FOLT3, URIC3, FEIBC, FERR3, B12, FT4M #### [facility] [address] [facility] [place] [address] #### HVAAO, ANA3, HEPAN, B2GPG, B2GPM, B2GPA #### [address] #### LUPUS #### The performing lab is in the report. MCV (RBC) [Entitic vol] 90.6 fL Normal 79.0-98.0 [facility] Comment on above: Performed By: #### A PTT, TSH5, HEMDF, LDH3, DDI2, BMP3M, ESR, FOLT3, URIC3, FEIBC, FERR3, B12, FT4M #### [place] [address] [place] [address] #### HVAAO, ANA3, HEPAN, B2GPG, B2GPM, B2GPA #### [address] #### LUPUS #### The performing lab is in the report. Monocytes (Bld) [#/Vol] 0.7 10*3/uL Normal 0.0-0.8 [facility] Comment on above: Performed By: #### A PTT, TSH5, HEMDF, LDH3, DDI2, BMP3M, ESR, FOLT3, URIC3, FEIBC, FERR3, B12, FT4M #### [address] [facility] [place] [address] #### HVAAO, ANA3, HEPAN, B2GPG, B2GPM, B2GPA #### [address] #### LUPUS #### The performing lab is in the report. Monocytes/100 WBC (Bld) 7.8 % Normal 2.0-10.0 [facility] Comment on above: Performed By: #### A PTT, TSH5, HEMDF, LDH3, DDI2, BMP3M, ESR, FOLT3, URIC3, FEIBC, FERR3, B12, FT4M #### [address] [facility] [place] #### HVAAO, ANA3, HEPAN, B2GPG, B2GPM, B2GPA #### [address] #### LUPUS #### The performing lab is in the report. Platelet mean volume (Bld) [Entitic vol] 8.7 fL Normal 7.4-10.4 [facility] Comment on above: Performed By: #### A PTT, TSH5, HEMDF, LDH3, DDI2, BMP3M, ESR, FOLT3, URIC3, FEIBC, FERR3, B12, FT4M #### [place] [address] [place] [address] #### HVAAO, ANA3, HEPAN, B2GPG, B2GPM, B2GPA #### [address] #### LUPUS #### The performing lab is in the report. Platelets (Bld) [#/Vol] 207 10*3/uL Normal 140-440 [facility] Comment on above: Performed By: #### A PTT, TSH5, HEMDF, LDH3, DDI2, BMP3M, ESR, FOLT3, URIC3, FEIBC, FERR3, B12, FT4M #### [address] [place] #### HVAAO, ANA3, HEPAN, B2GPG, B2GPM, B2GPA #### [address] #### LUPUS #### The performing lab is in the report. RBC (Bld) [#/Vol] 4.39 10*6/uL Normal 3.80-5.20 [facility] Comment on above: Performed By: #### A PTT, TSH5, HEMDF, LDH3, DDI2, BMP3M, ESR, FOLT3, URIC3, FEIBC, FERR3, B12, FT4M #### [address] [facility] #### HVAAO, ANA3, HEPAN, B2GPG, B2GPM, B2GPA #### [address] #### LUPUS #### The performing lab is in the report. WBC (Bld) [#/Vol] 9.0 10*3/uL Normal 3.6-10.7 [facility] Comment on above: Performed By: #### A PTT, TSH5, HEMDF, LDH3, DDI2, BMP3M, ESR, FOLT3, URIC3, FEIBC, FERR3, B12, FT4M #### [facility] [employer] (deal united) [facility] [address] [place] [address] #### HVAAO, ANA3, HEPAN, B2GPG, B2GPM, B2GPA #### [facility] [address], [place] #### LUPUS #### The performing lab is in the report. APTTon 11-05-2021 aPTT Coag (Bld) [Time] 58.6 s High 20.0-30.5 [facility] Comment on above: Result Comment: NOTE : The therapeutic time for Heparin anticoagulation, based on Xa activity inhibition, is an APTT of 46-80 seconds. Performed By: #### A PTT, TSH5, HEMDF, LDH3, DDI2, BMP3M, ESR, FOLT3, URIC3, FEIBC, FERR3, B12, FT4M ####[facility] [employer] (deal united) [place] [address] [place] [address]#### HVAAO, ANA3, HEPAN, B2GPG, B2GPM, B2GPA ####[place] [address] [place], [place] #### LUPUS ####The performing lab is in the report. aPTT Coag (Bld) [Time] 65.8 s High 20.0-30.5 [facility] Comment on above: Result Comment: NOTE : The therapeutic time for Heparin anticoagulation, based on Xa activity inhibition, is an APTT of 46-80 seconds. Performed By: #### A PTT, TSH5, HEMDF, LDH3, DDI2, BMP3M, ESR, FOLT3, URIC3, FEIBC, FERR3, B12, FT4M #### [facility] [employer] (deal united) [facility] [address] [place] [address] #### HVAAO, ANA3, HEPAN, B2GPG, B2GPM, B2GPA #### [facility] [address] [place] [address] #### LUPUS #### The performing lab is in the report. Acute Hepatitis Panelon 10-23 Hep C Antibody Not detected Normal Not Detected [facility] Comment on above: Result Comment: Patients with DETECTED Hepatitis C Ab results should have a new specimen submitted for supplemental testing with a Hepatitis C Quantitative RNA assay (viral load), if clinically indicated. Performed By: #### A PTT, TSH5, HEMDF, LDH3, DDI2, BMP3M, ESR, FOLT3, URIC3, FEIBC, FERR3, B12, FT4M ####[address] [place] [address]#### HVAAO, ANA3, HEPAN, B2GPG, B2GPM, B2GPA ####[address] #### LUPUS ####The performing lab is in the report. Hep A Virus Ab,IgM Not detected Normal Not Detected [facility] Comment on above: Performed By: #### A PTT, TSH5, HEMDF, LDH3, DDI2, BMP3M, ESR, FOLT3, URIC3, FEIBC, FERR3, B12, FT4M ####[address] [address]#### HVAAO, ANA3, HEPAN, B2GPG, B2GPM, B2GPA ####[address] #### LUPUS ####The performing lab is in the report. Hep B Surface Ag Not detected Normal Not Detected [facility] Comment on above: Performed By: #### A PTT, TSH5, HEMDF, LDH3, DDI2, BMP3M, ESR, FOLT3, URIC3, FEIBC, FERR3, B12, FT4M ####[address] [address]#### HVAAO, ANA3, HEPAN, B2GPG, B2GPM, B2GPA ####[address] #### LUPUS ####The performing lab is in the report. Hep B Core IgM Not detected Normal Not Detected [facility] Comment on above: Performed By: #### A PTT, TSH5, HEMDF, LDH3, DDI2, BMP3M, ESR, FOLT3, URIC3, FEIBC, FERR3, B12, FT4M ####[facility] [place] [address]#### HVAAO, ANA3, HEPAN, B2GPG, B2GPM, B2GPA ####[facility] [place] [address] #### LUPUS ####The performing lab is in the report. Basic Metabolic Panelon 10-23 Calcium [Mass/Vol] 9.1 mg/dL Normal 8.4-10.4 [facility] Comment on above: Performed By: #### A PTT, TSH5, HEMDF, LDH3, DDI2, BMP3M, ESR, FOLT3, URIC3, FEIBC, FERR3, B12, FT4M #### [address] [place] [address] #### HVAAO, ANA3, HEPAN, B2GPG, B2GPM, B2GPA #### [address] #### LUPUS #### The performing lab is in the report. Glucose [Mass/Vol] 110 mg/dL High 70-100 [facility] Comment on above: Performed By: #### A PTT, TSH5, HEMDF, LDH3, DDI2, BMP3M, ESR, FOLT3, URIC3, FEIBC, FERR3, B12, FT4M #### [address] [place] [address] #### HVAAO, ANA3, HEPAN, B2GPG, B2GPM, B2GPA #### [address] #### LUPUS #### The performing lab is in the report. Urea nitrogen [Mass/Vol] 13 mg/dL Normal 9-20 [facility] Comment on above: Performed By: #### A PTT, TSH5, HEMDF, LDH3, DDI2, BMP3M, ESR, FOLT3, URIC3, FEIBC, FERR3, B12, FT4M #### [address] [place] [address] #### HVAAO, ANA3, HEPAN, B2GPG, B2GPM, B2GPA #### [address] #### LUPUS #### The performing lab is in the report. Anion gap [Moles/Vol] 3 mmol/L Normal 3-13 [facility] Comment on above: Performed By: #### A PTT, TSH5, HEMDF, LDH3, DDI2, BMP3M, ESR, FOLT3, URIC3, FEIBC, FERR3, B12, FT4M #### [address] [place] [address] #### HVAAO, ANA3, HEPAN, B2GPG, B2GPM, B2GPA #### [address] #### LUPUS #### The performing lab is in the report. CO2 [Moles/Vol] 29 mmol/L Normal 22-30 [facility] Comment on above: Performed By: #### A PTT, TSH5, HEMDF, LDH3, DDI2, BMP3M, ESR, FOLT3, URIC3, FEIBC, FERR3, B12, FT4M #### [address] [place] [address] #### HVAAO, ANA3, HEPAN, B2GPG, B2GPM, B2GPA #### [address] #### LUPUS #### The performing lab is in the report. Creatinine [Mass/Vol] 0.96 mg/dL Normal 0.52-1.25 [facility] Comment on above: Performed By: #### A PTT, TSH5, HEMDF, LDH3, DDI2, BMP3M, ESR, FOLT3, URIC3, FEIBC, FERR3, B12, FT4M #### [address] [place] [address] #### HVAAO, ANA3, HEPAN, B2GPG, B2GPM, B2GPA #### [facility] [employer] (deal united) [facility] [address] [place] [address] #### LUPUS #### The performing lab is in the report. GFR/1.73 sq M.predicted among blacks MDRD (S/P/Bld) [Vol rate/Area] 65.4 mL/min/{1.73_m2} Normal >60 [facility] Comment on above: Performed By: #### A PTT, TSH5, HEMDF, LDH3, DDI2, BMP3M, ESR, FOLT3, URIC3, FEIBC, FERR3, B12, FT4M #### [facility] [employer] (deal united) [facility] [address] [place] [address] #### HVAAO, ANA3, HEPAN, B2GPG, B2GPM, B2GPA #### [address] [address] #### LUPUS #### The performing lab is in the report. GFR/1.73 sq M.predicted among non-blacks MDRD (S/P/Bld) [Vol rate/Area] 56.4 mL/min/{1.73_m2} Abnormal >60 [facility] Comment on above: Result Comment: KDIG [...] FOLT3, URIC3, FEIBC, FERR3, B12, FT4M #### [facility] [address] [place] [address] #### HVAAO, ANA3, HEPAN, B2GPG, B2GPM, B2GPA #### [address] #### LUPUS #### The performing lab is in the report. Chloride [Moles/Vol] 107 mmol/L Normal 98-107 [facility] Comment on above: Performed By: #### A PTT, TSH5, HEMDF, LDH3, DDI2, BMP3M, ESR, FOLT3, URIC3, FEIBC, FERR3, B12, FT4M #### [place] [address] [place] [address] #### HVAAO, ANA3, HEPAN, B2GPG, B2GPM, B2GPA #### [address] #### LUPUS #### The performing lab is in the report. Potassium [Moles/Vol] 3.8 mmol/L Normal 3.5-5.1 [facility] Comment on above: Performed By: #### A PTT, TSH5, HEMDF, LDH3, DDI2, BMP3M, ESR, FOLT3, URIC3, FEIBC, FERR3, B12, FT4M #### [facility] [address] [place] [address] #### HVAAO, ANA3, HEPAN, B2GPG, B2GPM, B2GPA #### [address] #### LUPUS #### The performing lab is in the report. Sodium [Moles/Vol] 139 mmol/L Normal 135-145 [facility] Comment on above: Performed By: #### A PTT, TSH5, HEMDF, LDH3, DDI2, BMP3M, ESR, FOLT3, URIC3, FEIBC, FERR3, B12, FT4M #### [place] [address] [place] [address] #### HVAAO, ANA3, HEPAN, B2GPG, B2GPM, B2GPA #### [facility] [address] [place], [place] #### LUPUS #### The performing lab is in the report. Beta-2 Glycoprotein I IgAon 11-05-2021 Beta-2 Glycoprotein I IgA < 2.0 Normal [facility] Comment on above: Result Comment: Inte rpretive Information: Results equal to or greater than 20 U/mL = POSITIVE Results less than 20 U/mL = NEGATIVE Performed By: #### A PTT, TSH5, HEMDF, LDH3, DDI2, BMP3M, ESR, FOLT3, URIC3, FEIBC, FERR3, B12, FT4M ####[address] [address]#### HVAAO, ANA3, HEPAN, B2GPG, B2GPM, B2GPA ####[address] #### LUPUS ####The performing lab is in the report. Beta-2 Glycoprotein I IgGon 11-05-2021 Beta-2 Glycoprotein I IgG < 1.4 Normal [facility] Comment on above: Result Comment: Inte rpretive Information: Results equal to or greater than 20 U/mL = POSITIVE Results less than 20 U/mL = NEGATIVE Performed By: #### A PTT, TSH5, HEMDF, LDH3, DDI2, BMP3M, ESR, FOLT3, URIC3, FEIBC, FERR3, B12, FT4M ####[address] [place] [address]#### HVAAO, ANA3, HEPAN, B2GPG, B2GPM, B2GPA ####[address] #### LUPUS ####The performing lab is in the report. Beta-2 Glycoprotein I IgMon 11-05-2021 Beta-2 Glycoprotein I IgM 2.4 U/mL Normal [facility] Comment on above: Result Comment: Inte rpretive Information: Results equal to or greater than 20 U/mL = POSITIVE Results less than 20 U/mL = NEGATIVE Performed By: #### A PTT, TSH5, HEMDF, LDH3, DDI2, BMP3M, ESR, FOLT3, URIC3, FEIBC, FERR3, B12, FT4M ####[facility] [employer] (deal united) [id number] [place] [address]#### HVAAO, ANA3, HEPAN, B2GPG, B2GPM, B2GPA ####[facility] [employer] (deal united) [id number] [place], [place] #### LUPUS ####The performing lab is in the report. D-Dimer, Innovanceon 022 D-Dimer, Innovance 2.22 mg/L High <0.19-0.50 [facility] Comment on above: Result Comment: Inno williamson D-Dimer values of <0.50 mg/L FEU can be used in combination with a pre-test probability model (e.g. Well's) to exclude pulmonary embolism (PE) disease, as well as an aid in the diagnosis of deep vein thrombosis (DVT). Performed By: #### A PTT, TSH5, HEMDF, LDH3, DDI2, BMP3M, ESR, FOLT3, URIC3, FEIBC, FERR3, B12, FT4M ####[facility] [employer] (deal united) [id number] [place] [address]#### HVAAO, ANA3, HEPAN, B2GPG, B2GPM, B2GPA ####[facility] [employer] (deal united) [id number] [place], [place] #### LUPUS ####The performing lab is in the report. Ferritinon 11-05-2021 Ferritin [Mass/Vol] 76 ng/mL Normal 11-264 [facility] [employer] (deal united) [facility] Comment on above: Performed By: #### A PTT, TSH5, HEMDF, LDH3, DDI2, BMP3M, ESR, FOLT3, URIC3, FEIBC, FERR3, B12, FT4M #### [facility] [employer] (deal united) [facility] [address] [place] [address] #### HVAAO, ANA3, HEPAN, B2GPG, B2GPM, B2GPA #### [facility] [address] [place], [place] #### LUPUS #### The performing lab is in the report. Folateon 11-05-2021 Folate 9.8 ng/mL Normal [facility] Comment on above: Result Comment: >2.8 Performed By: #### A PTT, TSH5, HEMDF, LDH3, DDI2, BMP3M, ESR, FOLT3, URIC3, FEIBC, FERR3, B12, FT4M #### [facility] [address] [place] [address] #### HVAAO, ANA3, HEPAN, B2GPG, B2GPM, B2GPA #### [facility] [address] [place], [place] #### LUPUS #### The performing lab is in the report. Free T4on 11-05-2021 Free T4 [Mass/Vol] 1.21 ng/dL Normal 0.78-2.19 [facility] Comment on above: Performed By: #### A PTT, TSH5, HEMDF, LDH3, DDI2, BMP3M, ESR, FOLT3, URIC3, FEIBC, FERR3, B12, FT4M ####[facility] [place] [address]#### HVAAO, ANA3, HEPAN, B2GPG, B2GPM, B2GPA ####[facility] [place], [place] #### LUPUS ####The performing lab is in the report. HIV Ag - Abon 11-05-2021 HIV 1,2 Combo Antigen/Antibody Non-Reactive Normal Non-Reactiv e [facility] Comment on above: Result Comment: The specimen was non-reactive for HIV-1 and HIV-2 antibodies and p24 antigen using an FDA-cleared 4th generation HIV test. Based on this non-reactive screen result, further reflexive testing was not indicated and was, therefore, not performed. Performed By: #### A PTT, TSH5, HEMDF, LDH3, DDI2, BMP3M, ESR, FOLT3, URIC3, FEIBC, FERR3, B12, FT4M ####[facility] [place] [address]#### HVAAO, ANA3, HEPAN, B2GPG, B2GPM, B2GPA ####[facility] [place], [place] #### LUPUS ####The performing lab is in the report. Hemogram w/ Autodiffon 11-05 Abs Baso Cnt 0.1 10*3/uL Normal 0.0-0.2 [facility] Comment on above: Performed By: #### A PTT, TSH5, HEMDF, LDH3, DDI2, BMP3M, ESR, FOLT3, URIC3, FEIBC, FERR3, B12, FT4M #### [facility] [address] [place] [address] #### HVAAO, ANA3, HEPAN, B2GPG, B2GPM, B2GPA #### [facility] [address] [place], [place] #### LUPUS #### The performing lab is in the report. Abs Neutrophile Cnt 5.4 10*3/uL Normal 1.8-7.0 [facility] Comment on above: Performed By: #### A PTT, TSH5, HEMDF, LDH3, DDI2, BMP3M, ESR, FOLT3, URIC3, FEIBC, FERR3, B12, FT4M #### [facility] [address] [place] [address] #### HVAAO, ANA3, HEPAN, B2GPG, B2GPM, B2GPA #### [address] #### LUPUS #### The performing lab is in the report. Basophils/100 WBC (Bld) 1.0 % Normal 0.0-2.0 [facility] Comment on above: Performed By: #### A PTT, TSH5, HEMDF, LDH3, DDI2, BMP3M, ESR, FOLT3, URIC3, FEIBC, FERR3, B12, FT4M #### [facility] [address] [place] #### HVAAO, ANA3, HEPAN, B2GPG, B2GPM, B2GPA #### [address] #### LUPUS #### The performing lab is in the report. Eosinophils (Bld) [#/Vol] 0.4 10*3/uL Normal 0.0-0.5 [facility] Comment on above: Performed By: #### A PTT, TSH5, HEMDF, LDH3, DDI2, BMP3M, ESR, FOLT3, URIC3, FEIBC, FERR3, B12, FT4M #### [address] [place] #### HVAAO, ANA3, HEPAN, B2GPG, B2GPM, B2GPA #### [address] #### LUPUS #### The performing lab is in the report. Eosinophils/100 WBC (Bld) 4.9 % Normal 1.0-6.0 [facility] Comment on above: Performed By: #### A PTT, TSH5, HEMDF, LDH3, DDI2, BMP3M, ESR, FOLT3, URIC3, FEIBC, FERR3, B12, FT4M #### [address] [place] #### HVAAO, ANA3, HEPAN, B2GPG, B2GPM, B2GPA #### [address] #### LUPUS #### The performing lab is in the report. Erythrocyte distribution width (RBC) [Ratio] 15.3 % High 11.5-14.5 [facility] Comment on above: Performed By: #### A PTT, TSH5, HEMDF, LDH3, DDI2, BMP3M, ESR, FOLT3, URIC3, FEIBC, FERR3, B12, FT4M #### [address] [place] #### HVAAO, ANA3, HEPAN, B2GPG, B2GPM, B2GPA #### [address] #### LUPUS #### The performing lab is in the report. Granulocytes/100 WBC (Bld) 60.5 % Normal 40.0-80.0 [facility] Comment on above: Performed By: #### A PTT, TSH5, HEMDF, LDH3, DDI2, BMP3M, ESR, FOLT3, URIC3, FEIBC, FERR3, B12, FT4M #### [facility] [address] [place] [address] #### HVAAO, ANA3, HEPAN, B2GPG, B2GPM, B2GPA #### [address] #### LUPUS #### The performing lab is in the report. Hematocrit (Bld) [Volume fraction] 41.4 % Normal 35.0-47.0 [facility] Comment on above: Performed By: #### A PTT, TSH5, HEMDF, LDH3, DDI2, BMP3M, ESR, FOLT3, URIC3, FEIBC, FERR3, B12, FT4M #### [facility] [address] [place] [address] #### HVAAO, ANA3, HEPAN, B2GPG, B2GPM, B2GPA #### [address] #### LUPUS #### The performing lab is in the report. Hemoglobin (Bld) [Mass/Vol] 13.8 g/dL Normal 11.7-16.0 [facility] Comment on above: Performed By: #### A PTT, TSH5, HEMDF, LDH3, DDI2, BMP3M, ESR, FOLT3, URIC3, FEIBC, FERR3, B12, FT4M #### [address] [place], [place] #### HVAAO, ANA3, HEPAN, B2GPG, B2GPM, B2GPA #### [address] #### LUPUS #### The performing lab is in the report. Lymphocytes (Bld) [#/Vol] 2.3 10*3/uL Normal 1.0-4.3 [facility] Comment on above: Performed By: #### A PTT, TSH5, HEMDF, LDH3, DDI2, BMP3M, ESR, FOLT3, URIC3, FEIBC, FERR3, B12, FT4M #### [facility] [address] [place] [address] #### HVAAO, ANA3, HEPAN, B2GPG, B2GPM, B2GPA #### [address] #### LUPUS #### The performing lab is in the report. Lymphocytes/100 WBC (Bld) 25.8 % Normal 20.0-40.0 [facility] Comment on above: Performed By: #### A PTT, TSH5, HEMDF, LDH3, DDI2, BMP3M, ESR, FOLT3, URIC3, FEIBC, FERR3, B12, FT4M #### [facility] [address] [place], [place] #### HVAAO, ANA3, HEPAN, B2GPG, B2GPM, B2GPA #### [address] #### LUPUS #### The performing lab is in the report. MCH (RBC) [Entitic mass] 30.6 pg Normal 26.0-34.0 [facility] Comment on above: Performed By: #### A PTT, TSH5, HEMDF, LDH3, DDI2, BMP3M, ESR, FOLT3, URIC3, FEIBC, FERR3, B12, FT4M #### [place] [address] [facility] [place] [address] #### HVAAO, ANA3, HEPAN, B2GPG, B2GPM, B2GPA #### [address] #### LUPUS #### The performing lab is in the report. MCHC 33.4 % Normal 32.0-36.0 [facility] Comment on above: Performed By: #### A PTT, TSH5, HEMDF, LDH3, DDI2, BMP3M, ESR, FOLT3, URIC3, FEIBC, FERR3, B12, FT4M #### [facility] [address] [place] [address] #### HVAAO, ANA3, HEPAN, B2GPG, B2GPM, B2GPA #### [address] #### LUPUS #### The performing lab is in the report. MCV (RBC) [Entitic vol] 91.7 fL Normal 79.0-98.0 [facility] Comment on above: Performed By: #### A PTT, TSH5, HEMDF, LDH3, DDI2, BMP3M, ESR, FOLT3, URIC3, FEIBC, FERR3, B12, FT4M #### [facility] [address] [place] [address] #### HVAAO, ANA3, HEPAN, B2GPG, B2GPM, B2GPA #### [address] #### LUPUS #### The performing lab is in the report. Monocytes (Bld) [#/Vol] 0.7 10*3/uL Normal 0.0-0.8 [facility] Comment on above: Performed By: #### A PTT, TSH5, HEMDF, LDH3, DDI2, BMP3M, ESR, FOLT3, URIC3, FEIBC, FERR3, B12, FT4M #### [place] [address] [place], [place] #### HVAAO, ANA3, HEPAN, B2GPG, B2GPM, B2GPA #### [address] #### LUPUS #### The performing lab is in the report. Monocytes/100 WBC (Bld) 7.8 % Normal 2.0-10.0 [facility] Comment on above: Performed By: #### A PTT, TSH5, HEMDF, LDH3, DDI2, BMP3M, ESR, FOLT3, URIC3, FEIBC, FERR3, B12, FT4M #### [facility] [address] [place] [address] #### HVAAO, ANA3, HEPAN, B2GPG, B2GPM, B2GPA #### [address] #### LUPUS #### The performing lab is in the report. Platelet mean volume (Bld) [Entitic vol] 9.0 fL Normal 7.4-10.4 [facility] Comment on above: Performed By: #### A PTT, TSH5, HEMDF, LDH3, DDI2, BMP3M, ESR, FOLT3, URIC3, FEIBC, FERR3, B12, FT4M #### [place] [address] [facility] [place] [address] #### HVAAO, ANA3, HEPAN, B2GPG, B2GPM, B2GPA #### [address] #### LUPUS #### The performing lab is in the report. Platelets (Bld) [#/Vol] 221 10*3/uL Normal 140-440 [facility] Comment on above: Performed By: #### A PTT, TSH5, HEMDF, LDH3, DDI2, BMP3M, ESR, FOLT3, URIC3, FEIBC, FERR3, B12, FT4M #### [address] [facility] [place] [address] #### HVAAO, ANA3, HEPAN, B2GPG, B2GPM, B2GPA #### [address] #### LUPUS #### The performing lab is in the report. RBC (Bld) [#/Vol] 4.51 10*6/uL Normal 3.80-5.20 [facility] Comment on above: Performed By: #### A PTT, TSH5, HEMDF, LDH3, DDI2, BMP3M, ESR, FOLT3, URIC3, FEIBC, FERR3, B12, FT4M #### [facility] [address] [place] [address] #### HVAAO, ANA3, HEPAN, B2GPG, B2GPM, B2GPA #### [address] #### LUPUS #### The performing lab is in the report. WBC (Bld) [#/Vol] 8.9 10*3/uL Normal 3.6-10.7 [facility] Comment on above: Performed By: #### A PTT, TSH5, HEMDF, LDH3, DDI2, BMP3M, ESR, FOLT3, URIC3, FEIBC, FERR3, B12, FT4M #### [address] [place] [address] #### HVAAO, ANA3, HEPAN, B2GPG, B2GPM, B2GPA #### [address] #### LUPUS #### The performing lab is in the report. Iron AND TIBCon 11-05-2021 Saturation 20 % Normal 15-50 [facility] Comment on above: Performed By: #### A PTT, TSH5, HEMDF, LDH3, DDI2, BMP3M, ESR, FOLT3, URIC3, FEIBC, FERR3, B12, FT4M ####[address] [place] [address]#### HVAAO, ANA3, HEPAN, B2GPG, B2GPM, B2GPA ####[address] #### LUPUS ####The performing lab is in the report. Total Iron Binding Cap. 296 ug/dL Normal 261-497 [facility] Comment on above: Performed By: #### A PTT, TSH5, HEMDF, LDH3, DDI2, BMP3M, ESR, FOLT3, URIC3, FEIBC, FERR3, B12, FT4M ####[facility] [place] [address]#### HVAAO, ANA3, HEPAN, B2GPG, B2GPM, B2GPA ####[place] [address] [place], [place] #### LUPUS ####The performing lab is in the report. Iron, Total 59 ug/dL Normal 37-170 [facility] Comment on above: Performed By: #### A PTT, TSH5, HEMDF, LDH3, DDI2, BMP3M, ESR, FOLT3, URIC3, FEIBC, FERR3, B12, FT4M ####[place] [address] [place] [address]#### HVAAO, ANA3, HEPAN, B2GPG, B2GPM, B2GPA ####[address] #### LUPUS ####The performing lab is in the report. LDHon 11-05-2021 LDH 259 U/L High 120-246 [facility] Comment on above: Performed By: #### A PTT, TSH5, HEMDF, LDH3, DDI2, BMP3M, ESR, FOLT3, URIC3, FEIBC, FERR3, B12, FT4M #### [facility] [address] [place] [address] #### HVAAO, ANA3, HEPAN, B2GPG, B2GPM, B2GPA #### [facility] [address] [place], [place] #### LUPUS #### The performing lab is in the report. Sed Rateon 11-05-2021 Sed Rate 47 mm/h High 0-20 [facility] Comment on above: Performed By: #### A PTT, TSH5, HEMDF, LDH3, DDI2, BMP3M, ESR, FOLT3, URIC3, FEIBC, FERR3, B12, FT4M #### [facility] [address] [place] [address] #### HVAAO, ANA3, HEPAN, B2GPG, B2GPM, B2GPA #### [address] #### LUPUS #### The performing lab is in the report. Thyroid Stim. Hormoneon 10-23 Thyroid Stim. Hormone 3.596 u[IU]/mL Normal 0.465-4.68 0 [facility] Comment on above: Performed By: #### A PTT, TSH5, HEMDF, LDH3, DDI2, BMP3M, ESR, FOLT3, URIC3, FEIBC, FERR3, B12, FT4M #### [facility] [address] [place] [address] #### HVAAO, ANA3, HEPAN, B2GPG, B2GPM, B2GPA #### [address] #### LUPUS #### The performing lab is in the report. Uric Acidon 11-05-2021 Urate [Mass/Vol] 7.3 mg/dL Normal 3.5-8.5 [facility] Comment on above: Performed By: #### A PTT, TSH5, HEMDF, LDH3, DDI2, BMP3M, ESR, FOLT3, URIC3, FEIBC, FERR3, B12, FT4M #### [facility] [address] [place] [address] #### HVAAO, ANA3, HEPAN, B2GPG, B2GPM, B2GPA #### [address] #### LUPUS #### The performing lab is in the report. Vitamin B12on 11-05-2021 Cobalamin (Vitamin B12) [Mass/Vol] 228 pg/mL Low 239-931 [facility] Comment on above: Performed By: #### A PTT, TSH5, HEMDF, LDH3, DDI2, BMP3M, ESR, FOLT3, URIC3, FEIBC, FERR3, B12, FT4M ####[facility] [place] [address]#### HVAAO, ANA3, HEPAN, B2GPG, B2GPM, B2GPA ####[facility] [place], [place] #### LUPUS ####The performing lab is in the report. APTTon 11-04-2021 aPTT Coag (Bld) [Time] 64.3 s High 20.0-30.5 [facility] Comment on above: Result Comment: NOTE : The therapeutic time for Heparin anticoagulation, based on Xa activity inhibition, is an APTT of 46-80 seconds. Performed By: #### A PTT #### [facility] [address] [place] [address] aPTT Coag (Bld) [Time] 61.1 s High 20.0-30.5 [facility] Comment on above: Result Comment: NOTE : The therapeutic time for Heparin anticoagulation, based on Xa activity inhibition, is an APTT of 46-80 seconds. Performed By: #### A PTT, TSH5, HEMDF, LDH3, DDI2, BMP3M, ESR, FOLT3, URIC3, FEIBC, FERR3, B12, FT4M #### [facility] [address] [place] [address] #### HVAAO, ANA3, HEPAN, B2GPG, B2GPM, B2GPA #### [facility] [address], [place] #### LUPUS #### The performing lab is in the report. aPTT Coag (Bld) [Time] 132.8 s Critically high 20.0-30. 5 [facility] Comment on above: Result Comment: NOTE : The therapeutic time for Heparin anticoagulation, based on Xa activity inhibition, is an APTT of 46-80 seconds. Performed By: #### A PTT, TSH5, HEMDF, LDH3, DDI2, BMP3M, ESR, FOLT3, URIC3, FEIBC, FERR3, B12, FT4M #### [facility] [address] [place] [address] #### HVAAO, ANA3, HEPAN, B2GPG, B2GPM, B2GPA #### [place] [address] [place], [place] #### LUPUS #### The performing lab is in the report. aPTT Coag (Bld) [Time] 34.5 s High 20.0-30.5 [facility] Comment on above: Result Comment: NOTE : The therapeutic time for Heparin anticoagulation, based on Xa activity inhibition, is an APTT of 46-80 seconds. Performed By: #### A PTT, TSH5, HEMDF, LDH3, DDI2, BMP3M, ESR, FOLT3, URIC3, FEIBC, FERR3, B12, FT4M #### [place] [address] [place] [address] #### HVAAO, ANA3, HEPAN, B2GPG, B2GPM, B2GPA #### [address] #### LUPUS #### The performing lab is in the report. Basic Metabolic Panelon - Calcium [Mass/Vol] 9.1 mg/dL Normal 8.4-10.4 [facility] Comment on above: Performed By: #### A PTT, TSH5, HEMDF, LDH3, DDI2, BMP3M, ESR, FOLT3, URIC3, FEIBC, FERR3, B12, FT4M #### [place] [address] [place] [address] #### HVAAO, ANA3, HEPAN, B2GPG, B2GPM, B2GPA #### [address] #### LUPUS #### The performing lab is in the report. Glucose [Mass/Vol] 123 mg/dL High 70-100 [facility] Comment on above: Performed By: #### A PTT, TSH5, HEMDF, LDH3, DDI2, BMP3M, ESR, FOLT3, URIC3, FEIBC, FERR3, B12, FT4M #### [place] [address] [place] [address] #### HVAAO, ANA3, HEPAN, B2GPG, B2GPM, B2GPA #### [address], [place] #### LUPUS #### The performing lab is in the report. Urea nitrogen [Mass/Vol] 16 mg/dL Normal 9-20 [facility] Comment on above: Performed By: #### A PTT, TSH5, HEMDF, LDH3, DDI2, BMP3M, ESR, FOLT3, URIC3, FEIBC, FERR3, B12, FT4M #### [place] [address] [place] [address] #### HVAAO, ANA3, HEPAN, B2GPG, B2GPM, B2GPA #### [address] #### LUPUS #### The performing lab is in the report. Anion gap [Moles/Vol] 5 mmol/L Normal 3-13 [facility] Comment on above: Performed By: #### A PTT, TSH5, HEMDF, LDH3, DDI2, BMP3M, ESR, FOLT3, URIC3, FEIBC, FERR3, B12, FT4M #### [place] [address] [facility] [place] [address] #### HVAAO, ANA3, HEPAN, B2GPG, B2GPM, B2GPA #### [address] #### LUPUS #### The performing lab is in the report. CO2 [Moles/Vol] 25 mmol/L Normal 22-30 [facility] Comment on above: Performed By: #### A PTT, TSH5, HEMDF, LDH3, DDI2, BMP3M, ESR, FOLT3, URIC3, FEIBC, FERR3, B12, FT4M #### [address] [facility] [place] [address] #### HVAAO, ANA3, HEPAN, B2GPG, B2GPM, B2GPA #### [address] #### LUPUS #### The performing lab is in the report. Creatinine [Mass/Vol] 0.94 mg/dL Normal 0.52-1.25 [facility] Comment on above: Performed By: #### A PTT, TSH5, HEMDF, LDH3, DDI2, BMP3M, ESR, FOLT3, URIC3, FEIBC, FERR3, B12, FT4M #### [facility] [address] [place] [address] #### HVAAO, ANA3, HEPAN, B2GPG, B2GPM, B2GPA #### [address] [address] #### LUPUS #### The performing lab is in the report. GFR/1.73 sq M.predicted among blacks MDRD (S/P/Bld) [Vol rate/Area] 67.1 mL/min/{1.73_m2} Normal >60 [facility] Comment on above: Performed By: #### A PTT, TSH5, HEMDF, LDH3, DDI2, BMP3M, ESR, FOLT3, URIC3, FEIBC, FERR3, B12, FT4M #### [facility] [address] [place] [address] #### HVAAO, ANA3, HEPAN, B2GPG, B2GPM, B2GPA #### [address] [address] #### LUPUS #### The performing lab is in the report. GFR/1.73 sq M.predicted among non-blacks MDRD (S/P/Bld) [Vol rate/Area] 57.9 mL/min/{1.73_m2} Abnormal >60 [facility] Comment on above: Result Comment: KDIG [...] FOLT3, URIC3, FEIBC, FERR3, B12, FT4M #### [place] [address] [place] [address] #### HVAAO, ANA3, HEPAN, B2GPG, B2GPM, B2GPA #### [address] #### LUPUS #### The performing lab is in the report. Chloride [Moles/Vol] 106 mmol/L Normal 98-107 [facility] Comment on above: Performed By: #### A PTT, TSH5, HEMDF, LDH3, DDI2, BMP3M, ESR, FOLT3, URIC3, FEIBC, FERR3, B12, FT4M #### [address] [place] [address] #### HVAAO, ANA3, HEPAN, B2GPG, B2GPM, B2GPA #### [address] #### LUPUS #### The performing lab is in the report. Potassium [Moles/Vol] 3.6 mmol/L Normal 3.5-5.1 [facility] Comment on above: Performed By: #### A PTT, TSH5, HEMDF, LDH3, DDI2, BMP3M, ESR, FOLT3, URIC3, FEIBC, FERR3, B12, FT4M #### [address] [place] [address] #### HVAAO, ANA3, HEPAN, B2GPG, B2GPM, B2GPA #### [address] #### LUPUS #### The performing lab is in the report. Sodium [Moles/Vol] 135 mmol/L Normal 135-145 [facility] Comment on above: Performed By: #### A PTT, TSH5, HEMDF, LDH3, DDI2, BMP3M, ESR, FOLT3, URIC3, FEIBC, FERR3, B12, FT4M #### [facility] [address] [place] [address] #### HVAAO, ANA3, HEPAN, B2GPG, B2GPM, B2GPA #### [facility] [address] [place] [address] #### LUPUS #### The performing lab is in the report. Echo Complete w/wo Contrasto n 11-04-2021 Echo Complete w/wo Contrast Patient Name: CHAY TEAGUE Ultrasound ACCESSION EXAM DATE/TIME PROCEDURE ORDERING PROVIDER [id number] 11/04/2021 11:49 EST Echo Complete w/wo MD LEBRON PRAMOD Contrast Reason For Exam (Echo Complete w/wo Contrast) DVT, chest pain Report TRANSTHORACIC ECHOCARDIOGRAM PATIENT: Chay Teague STUDY DATE: 11/04/2021 : 1945 AGE: 76 HT/WT: 160 cm (63 88.5 kg in) (194.6 lb) GENDER: F BP: 142 / 87 LOCATION: [facility] PATIENT [facility] STATUS: *ORDERING PHYSICIAN: * Cain Lebron *READING PHYSICIAN: * Jayden Muñoz *BRAIDED BAND ASSEMBLER: * Iliana Real MD RDCS,AE, PE, RVT [...] volume (SV) (more content not included)... Normal [facility] Hemogram w/ Autodiffon 11-04 Abs Baso Cnt 0.1 10*3/uL Normal 0.0-0.2 [facility] Comment on above: Performed By: #### A PTT, TSH5, HEMDF, LDH3, DDI2, BMP3M, ESR, FOLT3, URIC3, FEIBC, FERR3, B12, FT4M #### [facility] [address] [place] [address] #### HVAAO, ANA3, HEPAN, B2GPG, B2GPM, B2GPA #### [facility] [address] [place] [address] #### LUPUS #### The performing lab is in the report. Abs Neutrophile Cnt 7.2 10*3/uL High 1.8-7.0 [facility] Comment on above: Performed By: #### A PTT, TSH5, HEMDF, LDH3, DDI2, BMP3M, ESR, FOLT3, URIC3, FEIBC, FERR3, B12, FT4M #### [facility] [address] [place] [address] #### HVAAO, ANA3, HEPAN, B2GPG, B2GPM, B2GPA #### [address] [address] #### LUPUS #### The performing lab is in the report. Basophils/100 WBC (Bld) 0.8 % Normal 0.0-2.0 [facility] Comment on above: Performed By: #### A PTT, TSH5, HEMDF, LDH3, DDI2, BMP3M, ESR, FOLT3, URIC3, FEIBC, FERR3, B12, FT4M #### [place] [address] [place] [address] #### HVAAO, ANA3, HEPAN, B2GPG, B2GPM, B2GPA #### [address] [address] #### LUPUS #### The performing lab is in the report. Eosinophils (Bld) [#/Vol] 0.5 10*3/uL Normal 0.0-0.5 [facility] Comment on above: Performed By: #### A PTT, TSH5, HEMDF, LDH3, DDI2, BMP3M, ESR, FOLT3, URIC3, FEIBC, FERR3, B12, FT4M #### [place] [address] [place] [address] #### HVAAO, ANA3, HEPAN, B2GPG, B2GPM, B2GPA #### [address] [address] #### LUPUS #### The performing lab is in the report. Eosinophils/100 WBC (Bld) 4.7 % Normal 1.0-6.0 [facility] Comment on above: Performed By: #### A PTT, TSH5, HEMDF, LDH3, DDI2, BMP3M, ESR, FOLT3, URIC3, FEIBC, FERR3, B12, FT4M #### [address] [place] [address] #### HVAAO, ANA3, HEPAN, B2GPG, B2GPM, B2GPA #### [address] #### LUPUS #### The performing lab is in the report. Erythrocyte distribution width (RBC) [Ratio] 15.0 % High 11.5-14.5 [facility] Comment on above: Performed By: #### A PTT, TSH5, HEMDF, LDH3, DDI2, BMP3M, ESR, FOLT3, URIC3, FEIBC, FERR3, B12, FT4M #### [address] [place] #### HVAAO, ANA3, HEPAN, B2GPG, B2GPM, B2GPA #### [address] #### LUPUS #### The performing lab is in the report. Granulocytes/100 WBC (Bld) 64.0 % Normal 40.0-80.0 [facility] Comment on above: Performed By: #### A PTT, TSH5, HEMDF, LDH3, DDI2, BMP3M, ESR, FOLT3, URIC3, FEIBC, FERR3, B12, FT4M #### [address] [place] #### HVAAO, ANA3, HEPAN, B2GPG, B2GPM, B2GPA #### [address] #### LUPUS #### The performing lab is in the report. Hematocrit (Bld) [Volume fraction] 40.2 % Normal 35.0-47.0 [facility] Comment on above: Performed By: #### A PTT, TSH5, HEMDF, LDH3, DDI2, BMP3M, ESR, FOLT3, URIC3, FEIBC, FERR3, B12, FT4M #### [place] [address] [place] [address] #### HVAAO, ANA3, HEPAN, B2GPG, B2GPM, B2GPA #### [address] #### LUPUS #### The performing lab is in the report. Hemoglobin (Bld) [Mass/Vol] 13.2 g/dL Normal 11.7-16.0 [facility] Comment on above: Performed By: #### A PTT, TSH5, HEMDF, LDH3, DDI2, BMP3M, ESR, FOLT3, URIC3, FEIBC, FERR3, B12, FT4M #### [address] [place] #### HVAAO, ANA3, HEPAN, B2GPG, B2GPM, B2GPA #### [address] #### LUPUS #### The performing lab is in the report. Lymphocytes (Bld) [#/Vol] 2.5 10*3/uL Normal 1.0-4.3 [facility] Comment on above: Performed By: #### A PTT, TSH5, HEMDF, LDH3, DDI2, BMP3M, ESR, FOLT3, URIC3, FEIBC, FERR3, B12, FT4M #### [address] [place] #### HVAAO, ANA3, HEPAN, B2GPG, B2GPM, B2GPA #### [address] #### LUPUS #### The performing lab is in the report. Lymphocytes/100 WBC (Bld) 22.3 % Normal 20.0-40.0 [facility] Comment on above: Performed By: #### A PTT, TSH5, HEMDF, LDH3, DDI2, BMP3M, ESR, FOLT3, URIC3, FEIBC, FERR3, B12, FT4M #### [facility] [address] [place] [address] #### HVAAO, ANA3, HEPAN, B2GPG, B2GPM, B2GPA #### [address] #### LUPUS #### The performing lab is in the report. MCH (RBC) [Entitic mass] 30.3 pg Normal 26.0-34.0 [facility] Comment on above: Performed By: #### A PTT, TSH5, HEMDF, LDH3, DDI2, BMP3M, ESR, FOLT3, URIC3, FEIBC, FERR3, B12, FT4M #### [place] [address] [place] [id number] #### HVAAO, ANA3, HEPAN, B2GPG, B2GPM, B2GPA #### [address] #### LUPUS #### The performing lab is in the report. MCHC 32.9 % Normal 32.0-36.0 [facility] Comment on above: Performed By: #### A PTT, TSH5, HEMDF, LDH3, DDI2, BMP3M, ESR, FOLT3, URIC3, FEIBC, FERR3, B12, FT4M #### [place] [address] [place] [id number] #### HVAAO, ANA3, HEPAN, B2GPG, B2GPM, B2GPA #### [address] #### LUPUS #### The performing lab is in the report. MCV (RBC) [Entitic vol] 92.0 fL Normal 79.0-98.0 [facility] Comment on above: Performed By: #### A PTT, TSH5, HEMDF, LDH3, DDI2, BMP3M, ESR, FOLT3, URIC3, FEIBC, FERR3, B12, FT4M #### [place] [address] [facility] [place] [address] #### HVAAO, ANA3, HEPAN, B2GPG, B2GPM, B2GPA #### [address] #### LUPUS #### The performing lab is in the report. Monocytes (Bld) [#/Vol] 0.9 10*3/uL High 0.0-0.8 [facility] Comment on above: Performed By: #### A PTT, TSH5, HEMDF, LDH3, DDI2, BMP3M, ESR, FOLT3, URIC3, FEIBC, FERR3, B12, FT4M #### [address] [place] [address] #### HVAAO, ANA3, HEPAN, B2GPG, B2GPM, B2GPA #### [address] #### LUPUS #### The performing lab is in the report. Monocytes/100 WBC (Bld) 8.2 % Normal 2.0-10.0 [facility] Comment on above: Performed By: #### A PTT, TSH5, HEMDF, LDH3, DDI2, BMP3M, ESR, FOLT3, URIC3, FEIBC, FERR3, B12, FT4M #### [address] [place], [place] #### HVAAO, ANA3, HEPAN, B2GPG, B2GPM, B2GPA #### [address] #### LUPUS #### The performing lab is in the report. Platelet mean volume (Bld) [Entitic vol] 9.0 fL Normal 7.4-10.4 [facility] Comment on above: Performed By: #### A PTT, TSH5, HEMDF, LDH3, DDI2, BMP3M, ESR, FOLT3, URIC3, FEIBC, FERR3, B12, FT4M #### [address] [place] [address] #### HVAAO, ANA3, HEPAN, B2GPG, B2GPM, B2GPA #### [address] #### LUPUS #### The performing lab is in the report. Platelets (Bld) [#/Vol] 208 10*3/uL Normal 140-440 [facility] Comment on above: Performed By: #### A PTT, TSH5, HEMDF, LDH3, DDI2, BMP3M, ESR, FOLT3, URIC3, FEIBC, FERR3, B12, FT4M #### [facility] [address] [place] [address] #### HVAAO, ANA3, HEPAN, B2GPG, B2GPM, B2GPA #### [address] #### LUPUS #### The performing lab is in the report. RBC (Bld) [#/Vol] 4.37 10*6/uL Normal 3.80-5.20 [facility] Comment on above: Performed By: #### A PTT, TSH5, HEMDF, LDH3, DDI2, BMP3M, ESR, FOLT3, URIC3, FEIBC, FERR3, B12, FT4M #### [facility] [address] [place] [address] #### HVAAO, ANA3, HEPAN, B2GPG, B2GPM, B2GPA #### [address] #### LUPUS #### The performing lab is in the report. WBC (Bld) [#/Vol] 11.2 10*3/uL High 3.6-10.7 [facility] Comment on above: Performed By: #### A PTT, TSH5, HEMDF, LDH3, DDI2, BMP3M, ESR, FOLT3, URIC3, FEIBC, FERR3, B12, FT4M #### [facility] [address] [place] [address] #### HVAAO, ANA3, HEPAN, B2GPG, B2GPM, B2GPA #### [address] #### LUPUS #### The performing lab is in the report. APTTon 11-03-2021 aPTT Coag (Bld) [Time] 42.0 s High 20.0-30.5 [facility] Comment on above: Result Comment: NOTE : The therapeutic time for Heparin anticoagulation, based on Xa activity inhibition, is an APTT of 46-80 seconds. Performed By: #### A PTT, TSH5, HEMDF, LDH3, DDI2, BMP3M, ESR, FOLT3, URIC3, FEIBC, FERR3, B12, FT4M #### [facility] [address] [place] [address] #### HVAAO, ANA3, HEPAN, B2GPG, B2GPM, B2GPA #### [address] #### LUPUS #### The performing lab is in the report. aPTT Coag (Bld) [Time] 51.5 s High 20.0-30.5 [facility] Comment on above: Result Comment: NOTE : The therapeutic time for Heparin anticoagulation, based on Xa activity inhibition, is an APTT of 46-80 seconds. Performed By: #### A PTT, TSH5, HEMDF, LDH3, DDI2, BMP3M, ESR, FOLT3, URIC3, FEIBC, FERR3, B12, FT4M #### [place] [address] [place] [address] #### HVAAO, ANA3, HEPAN, B2GPG, B2GPM, B2GPA #### [address] #### LUPUS #### The performing lab is in the report. aPTT Coag (Bld) [Time] 106.9 s High 20.0-30.5 [facility] Comment on above: Result Comment: NOTE : The therapeutic time for Heparin anticoagulation, based on Xa activity inhibition, is an APTT of 46-80 seconds. Performed By: #### A PTT, TSH5, HEMDF, LDH3, DDI2, BMP3M, ESR, FOLT3, URIC3, FEIBC, FERR3, B12, FT4M #### [facility] [address] [place] [address] #### HVAAO, ANA3, HEPAN, B2GPG, B2GPM, B2GPA #### [facility] [address] [place] [address] #### LUPUS #### The performing lab is in the report. CT Head or Brain w/o Contras ton 11-03-2021 CT Head or Brain w/o Contrast Patient Name: CHAY TEAGUE Computed Tomography ACCESSION EXAM DATE/TIME PROCEDURE ORDERING PROVIDER [id number] 11/03/2021 15:[address] Head or Brain w/o MD CANDY, FCO Contrast CPT code 98938 Reason For Exam (CT Head or Brain [...] Transcribed Date and Time: 11/03/2021 3:31 Normal [facility] Comp Panel with Mg Reflexon 11-03-2021 Calcium [Mass/Vol] 8.9 mg/dL Normal 8.4-10.4 [facility] Comment on above: Performed By: #### A PTT, TSH5, HEMDF, LDH3, DDI2, BMP3M, ESR, FOLT3, URIC3, FEIBC, FERR3, B12, FT4M #### [facility] [address] [place] [address] #### HVAAO, ANA3, HEPAN, B2GPG, B2GPM, B2GPA #### [address] #### LUPUS #### The performing lab is in the report. ALP [Catalytic activity/Vol] 113 U/L Normal 38-126 [facility] Comment on above: Performed By: #### A PTT, TSH5, HEMDF, LDH3, DDI2, BMP3M, ESR, FOLT3, URIC3, FEIBC, FERR3, B12, FT4M #### [place] [address] [place] #### HVAAO, ANA3, HEPAN, B2GPG, B2GPM, B2GPA #### [address] #### LUPUS #### The performing lab is in the report. ALT [Catalytic activity/Vol] 15 U/L Normal 0-34 [facility] Comment on above: Result Comment: The ALT test is performed by an updated assay method. Please note that the reference intervals have been changed and are now sex specific. Performed By: #### A PTT, TSH5, HEMDF, LDH3, DDI2, BMP3M, ESR, FOLT3, URIC3, FEIBC, FERR3, B12, FT4M #### [place] [address] [place] [address] #### HVAAO, ANA3, HEPAN, B2GPG, B2GPM, B2GPA #### [address] #### LUPUS #### The performing lab is in the report. Anion gap [Moles/Vol] 9 mmol/L Normal 3-13 [facility] Comment on above: Performed By: #### A PTT, TSH5, HEMDF, LDH3, DDI2, BMP3M, ESR, FOLT3, URIC3, FEIBC, FERR3, B12, FT4M #### [facility] [address] [place] [address] #### HVAAO, ANA3, HEPAN, B2GPG, B2GPM, B2GPA #### [address] #### LUPUS #### The performing lab is in the report. AST [Catalytic activity/Vol] 26 U/L Normal 15-46 [facility] Comment on above: Performed By: #### A PTT, TSH5, HEMDF, LDH3, DDI2, BMP3M, ESR, FOLT3, URIC3, FEIBC, FERR3, B12, FT4M #### [address] [facility] [place] [address] #### HVAAO, ANA3, HEPAN, B2GPG, B2GPM, B2GPA #### [address] #### LUPUS #### The performing lab is in the report. Bilirubin [Mass/Vol] 0.8 mg/dL Normal 0.2-1.3 [facility] Comment on above: Performed By: #### A PTT, TSH5, HEMDF, LDH3, DDI2, BMP3M, ESR, FOLT3, URIC3, FEIBC, FERR3, B12, FT4M #### [place] [address] [facility] [place] [address] #### HVAAO, ANA3, HEPAN, B2GPG, B2GPM, B2GPA #### [address] #### LUPUS #### The performing lab is in the report. CO2 [Moles/Vol] 23 mmol/L Normal 22-30 [facility] Comment on above: Performed By: #### A PTT, TSH5, HEMDF, LDH3, DDI2, BMP3M, ESR, FOLT3, URIC3, FEIBC, FERR3, B12, FT4M #### [place] [address] [place] [address] #### HVAAO, ANA3, HEPAN, B2GPG, B2GPM, B2GPA #### [address] #### LUPUS #### The performing lab is in the report. Glucose [Mass/Vol] 112 mg/dL High 70-100 [facility] Comment on above: Performed By: #### A PTT, TSH5, HEMDF, LDH3, DDI2, BMP3M, ESR, FOLT3, URIC3, FEIBC, FERR3, B12, FT4M #### [facility] [address] [place] #### HVAAO, ANA3, HEPAN, B2GPG, B2GPM, B2GPA #### [address] #### LUPUS #### The performing lab is in the report. Protein [Mass/Vol] 7.2 g/dL Normal 6.3-8.2 [facility] Comment on above: Performed By: #### A PTT, TSH5, HEMDF, LDH3, DDI2, BMP3M, ESR, FOLT3, URIC3, FEIBC, FERR3, B12, FT4M #### [facility] [address] [place] #### HVAAO, ANA3, HEPAN, B2GPG, B2GPM, B2GPA #### [address] #### LUPUS #### The performing lab is in the report. Urea nitrogen [Mass/Vol] 22 mg/dL High 9-20 [facility] Comment on above: Performed By: #### A PTT, TSH5, HEMDF, LDH3, DDI2, BMP3M, ESR, FOLT3, URIC3, FEIBC, FERR3, B12, FT4M #### [place] [address] [place] #### HVAAO, ANA3, HEPAN, B2GPG, B2GPM, B2GPA #### [address] #### LUPUS #### The performing lab is in the report. Creatinine [Mass/Vol] 1.13 mg/dL Normal 0.52-1.25 [facility] Comment on above: Performed By: #### A PTT, TSH5, HEMDF, LDH3, DDI2, BMP3M, ESR, FOLT3, URIC3, FEIBC, FERR3, B12, FT4M #### [address] [place] [address] #### HVAAO, ANA3, HEPAN, B2GPG, B2GPM, B2GPA #### [address] #### LUPUS #### The performing lab is in the report. GFR/1.73 sq M.predicted among blacks MDRD (S/P/Bld) [Vol rate/Area] 53.7 mL/min/{1.73_m2} Abnormal >60 [facility] Comment on above: Performed By: #### A PTT, TSH5, HEMDF, LDH3, DDI2, BMP3M, ESR, FOLT3, URIC3, FEIBC, FERR3, B12, FT4M #### [address] [place] [address] #### HVAAO, ANA3, HEPAN, B2GPG, B2GPM, B2GPA #### [address] #### LUPUS #### The performing lab is in the report. GFR/1.73 sq M.predicted among non-blacks MDRD (S/P/Bld) [Vol rate/Area] 46.3 mL/min/{1.73_m2} Abnormal >60 [facility] Comment on above: Result Comment: KDIG [...] FOLT3, URIC3, FEIBC, FERR3, B12, FT4M #### [facility] [address] [place] [address] #### HVAAO, ANA3, HEPAN, B2GPG, B2GPM, B2GPA #### [address] [id number] #### LUPUS #### The performing lab is in the report. Albumin [Mass/Vol] 3.8 g/dL Normal 3.5-5.0 [facility] Comment on above: Performed By: #### A PTT, TSH5, HEMDF, LDH3, DDI2, BMP3M, ESR, FOLT3, URIC3, FEIBC, FERR3, B12, FT4M #### [facility] [address] [place] [address] #### HVAAO, ANA3, HEPAN, B2GPG, B2GPM, B2GPA #### [address] [phone] #### LUPUS #### The performing lab is in the report. Chloride [Moles/Vol] 104 mmol/L Normal 98-107 [facility] Comment on above: Performed By: #### A PTT, TSH5, HEMDF, LDH3, DDI2, BMP3M, ESR, FOLT3, URIC3, FEIBC, FERR3, B12, FT4M #### [facility] [address] [place] [address] #### HVAAO, ANA3, HEPAN, B2GPG, B2GPM, B2GPA #### [place] [address] [place], [place] #### LUPUS #### The performing lab is in the report. Potassium [Moles/Vol] 3.2 mmol/L Low 3.5-5.1 [facility] Comment on above: Performed By: #### A PTT, TSH5, HEMDF, LDH3, DDI2, BMP3M, ESR, FOLT3, URIC3, FEIBC, FERR3, B12, FT4M #### [facility] [address] [place] [address] #### HVAAO, ANA3, HEPAN, B2GPG, B2GPM, B2GPA #### [address] #### LUPUS #### The performing lab is in the report. Sodium [Moles/Vol] 136 mmol/L Normal 135-145 [facility] Comment on above: Performed By: #### A PTT, TSH5, HEMDF, LDH3, DDI2, BMP3M, ESR, FOLT3, URIC3, FEIBC, FERR3, B12, FT4M #### [facility] [address] [place] [address] #### HVAAO, ANA3, HEPAN, B2GPG, B2GPM, B2GPA #### [address] #### LUPUS #### The performing lab is in the report. Glucose,Bedsideon 11-03-2021 Glucose [Mass/Vol] 117 mg/dL High 70-100 [facility] Comment on above: Result Comment: Test performed by glucose meter. Results may be 10%-15% lower than serum/plasma values. (CLIA ID [id number]) Performed By: #### A PTT, TSH5, HEMDF, LDH3, DDI2, BMP3M, ESR, FOLT3, URIC3, FEIBC, FERR3, B12, FT4M #### [facility] [address] [place] [address] #### HVAAO, ANA3, HEPAN, B2GPG, B2GPM, B2GPA #### [address] #### LUPUS #### The performing lab is in the report. Hemogramon 11-03-2021 Erythrocyte distribution width (RBC) [Ratio] 14.9 % High 11.5-14.5 [facility] Comment on above: Performed By: #### A PTT, TSH5, HEMDF, LDH3, DDI2, BMP3M, ESR, FOLT3, URIC3, FEIBC, FERR3, B12, FT4M #### [facility] [address] [place] [address] #### HVAAO, ANA3, HEPAN, B2GPG, B2GPM, B2GPA #### [address] #### LUPUS #### The performing lab is in the report. Hematocrit (Bld) [Volume fraction] 41.6 % Normal 35.0-47.0 [facility] Comment on above: Performed By: #### A PTT, TSH5, HEMDF, LDH3, DDI2, BMP3M, ESR, FOLT3, URIC3, FEIBC, FERR3, B12, FT4M #### [facility] [address] [place] [address] #### HVAAO, ANA3, HEPAN, B2GPG, B2GPM, B2GPA #### [address] #### LUPUS #### The performing lab is in the report. Hemoglobin (Bld) [Mass/Vol] 14.1 g/dL Normal 11.7-16.0 [facility] Comment on above: Performed By: #### A PTT, TSH5, HEMDF, LDH3, DDI2, BMP3M, ESR, FOLT3, URIC3, FEIBC, FERR3, B12, FT4M #### [facility] [address] [place] [address] #### HVAAO, ANA3, HEPAN, B2GPG, B2GPM, B2GPA #### [address] #### LUPUS #### The performing lab is in the report. MCH (RBC) [Entitic mass] 30.7 pg Normal 26.0-34.0 [facility] Comment on above: Performed By: #### A PTT, TSH5, HEMDF, LDH3, DDI2, BMP3M, ESR, FOLT3, URIC3, FEIBC, FERR3, B12, FT4M #### [facility] [address] [place] [address] #### HVAAO, ANA3, HEPAN, B2GPG, B2GPM, B2GPA #### [address] #### LUPUS #### The performing lab is in the report. MCHC 34.0 % Normal 32.0-36.0 [facility] Comment on above: Performed By: #### A PTT, TSH5, HEMDF, LDH3, DDI2, BMP3M, ESR, FOLT3, URIC3, FEIBC, FERR3, B12, FT4M #### [place] [address] [place] [address] #### HVAAO, ANA3, HEPAN, B2GPG, B2GPM, B2GPA #### [address] #### LUPUS #### The performing lab is in the report. MCV (RBC) [Entitic vol] 90.3 fL Normal 79.0-98.0 [facility] Comment on above: Performed By: #### A PTT, TSH5, HEMDF, LDH3, DDI2, BMP3M, ESR, FOLT3, URIC3, FEIBC, FERR3, B12, FT4M #### [facility] [address] [place] [address] #### HVAAO, ANA3, HEPAN, B2GPG, B2GPM, B2GPA #### [address] #### LUPUS #### The performing lab is in the report. Platelet mean volume (Bld) [Entitic vol] 8.8 fL Normal 7.4-10.4 [facility] Comment on above: Performed By: #### A PTT, TSH5, HEMDF, LDH3, DDI2, BMP3M, ESR, FOLT3, URIC3, FEIBC, FERR3, B12, FT4M #### [facility] [address] [place] [address] #### HVAAO, ANA3, HEPAN, B2GPG, B2GPM, B2GPA #### [address] #### LUPUS #### The performing lab is in the report. Platelets (Bld) [#/Vol] 185 10*3/uL Normal 140-440 [facility] Comment on above: Performed By: #### A PTT, TSH5, HEMDF, LDH3, DDI2, BMP3M, ESR, FOLT3, URIC3, FEIBC, FERR3, B12, FT4M #### [facility] [address] [place] [address] #### HVAAO, ANA3, HEPAN, B2GPG, B2GPM, B2GPA #### [address] #### LUPUS #### The performing lab is in the report. RBC (Bld) [#/Vol] 4.61 10*6/uL Normal 3.80-5.20 [facility] Comment on above: Performed By: #### A PTT, TSH5, HEMDF, LDH3, DDI2, BMP3M, ESR, FOLT3, URIC3, FEIBC, FERR3, B12, FT4M #### [facility] [address] [place] [address] #### HVAAO, ANA3, HEPAN, B2GPG, B2GPM, B2GPA #### [address] #### LUPUS #### The performing lab is in the report. WBC (Bld) [#/Vol] 9.3 10*3/uL Normal 3.6-10.7 [facility] Comment on above: Performed By: #### A PTT, TSH5, HEMDF, LDH3, DDI2, BMP3M, ESR, FOLT3, URIC3, FEIBC, FERR3, B12, FT4M #### [facility] [address] [place] [address] #### HVAAO, ANA3, HEPAN, B2GPG, B2GPM, B2GPA #### [address] #### LUPUS #### The performing lab is in the report. Hemogram w/ Autodiffon 11-03 Abs Baso Cnt 0.0 10*3/uL Normal 0.0-0.2 [facility] Comment on above: Performed By: #### A PTT, TSH5, HEMDF, LDH3, DDI2, BMP3M, ESR, FOLT3, URIC3, FEIBC, FERR3, B12, FT4M #### [address] [place] [address] #### HVAAO, ANA3, HEPAN, B2GPG, B2GPM, B2GPA #### [address] #### LUPUS #### The performing lab is in the report. Abs Neutrophile Cnt 6.5 10*3/uL Normal 1.8-7.0 [facility] Comment on above: Performed By: #### A PTT, TSH5, HEMDF, LDH3, DDI2, BMP3M, ESR, FOLT3, URIC3, FEIBC, FERR3, B12, FT4M #### [address] [place] [address] #### HVAAO, ANA3, HEPAN, B2GPG, B2GPM, B2GPA #### [address] #### LUPUS #### The performing lab is in the report. Basophils/100 WBC (Bld) 0.4 % Normal 0.0-2.0 [facility] Comment on above: Performed By: #### A PTT, TSH5, HEMDF, LDH3, DDI2, BMP3M, ESR, FOLT3, URIC3, FEIBC, FERR3, B12, FT4M #### [place] [address] [place] [address] #### HVAAO, ANA3, HEPAN, B2GPG, B2GPM, B2GPA #### [address] #### LUPUS #### The performing lab is in the report. Eosinophils (Bld) [#/Vol] 0.4 10*3/uL Normal 0.0-0.5 [facility] Comment on above: Performed By: #### A PTT, TSH5, HEMDF, LDH3, DDI2, BMP3M, ESR, FOLT3, URIC3, FEIBC, FERR3, B12, FT4M #### [address] [place] #### HVAAO, ANA3, HEPAN, B2GPG, B2GPM, B2GPA #### [address] #### LUPUS #### The performing lab is in the report. Eosinophils/100 WBC (Bld) 4.0 % Normal 1.0-6.0 [facility] Comment on above: Performed By: #### A PTT, TSH5, HEMDF, LDH3, DDI2, BMP3M, ESR, FOLT3, URIC3, FEIBC, FERR3, B12, FT4M #### [address] [place], [place] #### HVAAO, ANA3, HEPAN, B2GPG, B2GPM, B2GPA #### [address] #### LUPUS #### The performing lab is in the report. Erythrocyte distribution width (RBC) [Ratio] 14.9 % High 11.5-14.5 [facility] Comment on above: Performed By: #### A PTT, TSH5, HEMDF, LDH3, DDI2, BMP3M, ESR, FOLT3, URIC3, FEIBC, FERR3, B12, FT4M #### [facility] [address] [place] [address] #### HVAAO, ANA3, HEPAN, B2GPG, B2GPM, B2GPA #### [address] #### LUPUS #### The performing lab is in the report. Granulocytes/100 WBC (Bld) 65.5 % Normal 40.0-80.0 [facility] Comment on above: Performed By: #### A PTT, TSH5, HEMDF, LDH3, DDI2, BMP3M, ESR, FOLT3, URIC3, FEIBC, FERR3, B12, FT4M #### [address] [place] #### HVAAO, ANA3, HEPAN, B2GPG, B2GPM, B2GPA #### [address] #### LUPUS #### The performing lab is in the report. Hematocrit (Bld) [Volume fraction] 43.4 % Normal 35.0-47.0 [facility] Comment on above: Performed By: #### A PTT, TSH5, HEMDF, LDH3, DDI2, BMP3M, ESR, FOLT3, URIC3, FEIBC, FERR3, B12, FT4M #### [address] [place] #### HVAAO, ANA3, HEPAN, B2GPG, B2GPM, B2GPA #### [address] #### LUPUS #### The performing lab is in the report. Hemoglobin (Bld) [Mass/Vol] 14.6 g/dL Normal 11.7-16.0 [facility] Comment on above: Performed By: #### A PTT, TSH5, HEMDF, LDH3, DDI2, BMP3M, ESR, FOLT3, URIC3, FEIBC, FERR3, B12, FT4M #### [address] [place] [address] #### HVAAO, ANA3, HEPAN, B2GPG, B2GPM, B2GPA #### [address] #### LUPUS #### The performing lab is in the report. Lymphocytes (Bld) [#/Vol] 2.2 10*3/uL Normal 1.0-4.3 [facility] Comment on above: Performed By: #### A PTT, TSH5, HEMDF, LDH3, DDI2, BMP3M, ESR, FOLT3, URIC3, FEIBC, FERR3, B12, FT4M #### [address] [facility] [place] #### HVAAO, ANA3, HEPAN, B2GPG, B2GPM, B2GPA #### [address] #### LUPUS #### The performing lab is in the report. Lymphocytes/100 WBC (Bld) 22.4 % Normal 20.0-40.0 [facility] Comment on above: Performed By: #### A PTT, TSH5, HEMDF, LDH3, DDI2, BMP3M, ESR, FOLT3, URIC3, FEIBC, FERR3, B12, FT4M #### [address] [facility] [place] #### HVAAO, ANA3, HEPAN, B2GPG, B2GPM, B2GPA #### [address] #### LUPUS #### The performing lab is in the report. MCH (RBC) [Entitic mass] 30.8 pg Normal 26.0-34.0 [facility] Comment on above: Performed By: #### A PTT, TSH5, HEMDF, LDH3, DDI2, BMP3M, ESR, FOLT3, URIC3, FEIBC, FERR3, B12, FT4M #### [address] [facility] [place] #### HVAAO, ANA3, HEPAN, B2GPG, B2GPM, B2GPA #### [address] #### LUPUS #### The performing lab is in the report. MCHC 33.6 % Normal 32.0-36.0 [facility] Comment on above: Performed By: #### A PTT, TSH5, HEMDF, LDH3, DDI2, BMP3M, ESR, FOLT3, URIC3, FEIBC, FERR3, B12, FT4M #### [facility] [address] [place] [address] #### HVAAO, ANA3, HEPAN, B2GPG, B2GPM, B2GPA #### [address] #### LUPUS #### The performing lab is in the report. MCV (RBC) [Entitic vol] 91.5 fL Normal 79.0-98.0 [facility] Comment on above: Performed By: #### A PTT, TSH5, HEMDF, LDH3, DDI2, BMP3M, ESR, FOLT3, URIC3, FEIBC, FERR3, B12, FT4M #### [facility] [address] [place] [address] #### HVAAO, ANA3, HEPAN, B2GPG, B2GPM, B2GPA #### [address] #### LUPUS #### The performing lab is in the report. Monocytes (Bld) [#/Vol] 0.8 10*3/uL Normal 0.0-0.8 [facility] Comment on above: Performed By: #### A PTT, TSH5, HEMDF, LDH3, DDI2, BMP3M, ESR, FOLT3, URIC3, FEIBC, FERR3, B12, FT4M #### [facility] [address] [place] [address] #### HVAAO, ANA3, HEPAN, B2GPG, B2GPM, B2GPA #### [address] #### LUPUS #### The performing lab is in the report. Monocytes/100 WBC (Bld) 7.7 % Normal 2.0-10.0 [facility] Comment on above: Performed By: #### A PTT, TSH5, HEMDF, LDH3, DDI2, BMP3M, ESR, FOLT3, URIC3, FEIBC, FERR3, B12, FT4M #### [facility] [address] [place] [address] #### HVAAO, ANA3, HEPAN, B2GPG, B2GPM, B2GPA #### [address] #### LUPUS #### The performing lab is in the report. Platelet mean volume (Bld) [Entitic vol] 9.2 fL Normal 7.4-10.4 [facility] Comment on above: Performed By: #### A PTT, TSH5, HEMDF, LDH3, DDI2, BMP3M, ESR, FOLT3, URIC3, FEIBC, FERR3, B12, FT4M #### [facility] [address] [place] [address] #### HVAAO, ANA3, HEPAN, B2GPG, B2GPM, B2GPA #### [address] #### LUPUS #### The performing lab is in the report. Platelets (Bld) [#/Vol] 208 10*3/uL Normal 140-440 [facility] Comment on above: Performed By: #### A PTT, TSH5, HEMDF, LDH3, DDI2, BMP3M, ESR, FOLT3, URIC3, FEIBC, FERR3, B12, FT4M #### [facility] [address] [place] [address] #### HVAAO, ANA3, HEPAN, B2GPG, B2GPM, B2GPA #### [address] #### LUPUS #### The performing lab is in the report. RBC (Bld) [#/Vol] 4.74 10*6/uL Normal 3.80-5.20 [facility] Comment on above: Performed By: #### A PTT, TSH5, HEMDF, LDH3, DDI2, BMP3M, ESR, FOLT3, URIC3, FEIBC, FERR3, B12, FT4M #### [facility] [address] [place] [address] #### HVAAO, ANA3, HEPAN, B2GPG, B2GPM, B2GPA #### [address] #### LUPUS #### The performing lab is in the report. WBC (Bld) [#/Vol] 10.0 10*3/uL Normal 3.6-10.7 [facility] Comment on above: Performed By: #### A PTT, TSH5, HEMDF, LDH3, DDI2, BMP3M, ESR, FOLT3, URIC3, FEIBC, FERR3, B12, FT4M #### [address] [place] [address] #### HVAAO, ANA3, HEPAN, B2GPG, B2GPM, B2GPA #### [address] #### LUPUS #### The performing lab is in the report. Magnesiumon 11-03-2021 Magnesium [Mass/Vol] 2.1 mg/dL Normal 1.6-2.3 [facility] Comment on above: Performed By: #### A PTT, TSH5, HEMDF, LDH3, DDI2, BMP3M, ESR, FOLT3, URIC3, FEIBC, FERR3, B12, FT4M #### [address] [place] [address] #### HVAAO, ANA3, HEPAN, B2GPG, B2GPM, B2GPA #### [address] #### LUPUS #### The performing lab is in the report. APTTon 11-02-2021 aPTT Coag (Bld) [Time] 22.5 s Normal 20.0-30.5 [facility] Comment on above: Result Comment: NOTE : The therapeutic time for Heparin anticoagulation, based on Xa activity inhibition, is an APTT of 46-80 seconds. Performed By: #### A PTT, TSH5, HEMDF, LDH3, DDI2, BMP3M, ESR, FOLT3, URIC3, FEIBC, FERR3, B12, FT4M #### [facility] [address] [place] [address] #### HVAAO, ANA3, HEPAN, B2GPG, B2GPM, B2GPA #### [address] [id number] #### LUPUS #### The performing lab is in the report. Add on test from HISon 11-02 Add on test from HIS Accepted Normal [facility] Comment on above: Result Comment: Spec imen available & acceptable for analysis. Performed By: #### A PTT, TSH5, HEMDF, LDH3, DDI2, BMP3M, ESR, FOLT3, URIC3, FEIBC, FERR3, B12, FT4M #### [place] [address] [place] [address] #### HVAAO, ANA3, HEPAN, B2GPG, B2GPM, B2GPA #### [place] [address] #### LUPUS #### The performing lab is in the report. Basic Metabolic Panelon 10-23 Calcium [Mass/Vol] 9.4 mg/dL Normal 8.4-10.4 [facility] Comment on above: Performed By: #### A PTT, TSH5, HEMDF, LDH3, DDI2, BMP3M, ESR, FOLT3, URIC3, FEIBC, FERR3, B12, FT4M #### [place] [address] [place] [address] #### HVAAO, ANA3, HEPAN, B2GPG, B2GPM, B2GPA #### [place] [address] #### LUPUS #### The performing lab is in the report. Anion gap [Moles/Vol] 7 mmol/L Normal 3-13 [facility] Comment on above: Performed By: #### A PTT, TSH5, HEMDF, LDH3, DDI2, BMP3M, ESR, FOLT3, URIC3, FEIBC, FERR3, B12, FT4M #### [facility] [address] [facility] [place] [address] #### HVAAO, ANA3, HEPAN, B2GPG, B2GPM, B2GPA #### [address] #### LUPUS #### The performing lab is in the report. CO2 [Moles/Vol] 30 mmol/L Normal 22-30 [facility] Comment on above: Performed By: #### A PTT, TSH5, HEMDF, LDH3, DDI2, BMP3M, ESR, FOLT3, URIC3, FEIBC, FERR3, B12, FT4M #### [place] [address] [facility] [place] #### HVAAO, ANA3, HEPAN, B2GPG, B2GPM, B2GPA #### [address] #### LUPUS #### The performing lab is in the report. Creatinine [Mass/Vol] 0.99 mg/dL Normal 0.52-1.25 [facility] Comment on above: Performed By: #### A PTT, TSH5, HEMDF, LDH3, DDI2, BMP3M, ESR, FOLT3, URIC3, FEIBC, FERR3, B12, FT4M #### [address] [facility] [place] [address] #### HVAAO, ANA3, HEPAN, B2GPG, B2GPM, B2GPA #### [address] #### LUPUS #### The performing lab is in the report. GFR/1.73 sq M.predicted among blacks MDRD (S/P/Bld) [Vol rate/Area] 63.0 mL/min/{1.73_m2} Normal >60 [facility] Comment on above: Performed By: #### A PTT, TSH5, HEMDF, LDH3, DDI2, BMP3M, ESR, FOLT3, URIC3, FEIBC, FERR3, B12, FT4M #### [facility] [employer] [facility] [address] [place] [address] #### HVAAO, ANA3, HEPAN, B2GPG, B2GPM, B2GPA #### [employer] [facility] [address] [place] [address] #### LUPUS #### The performing lab is in the report. GFR/1.73 sq M.predicted among non-blacks MDRD (S/P/Bld) [Vol rate/Area] 54.4 mL/min/{1.73_m2} Abnormal >60 [facility] Comment on above: Result Comment: KDIG [...] FOLT3, URIC3, FEIBC, FERR3, B12, FT4M #### [facility] [employer] [facility] [address] [place] [address] #### HVAAO, ANA3, HEPAN, B2GPG, B2GPM, B2GPA #### [facility] [employer]) [facility] [address] [place] [address] #### LUPUS #### The performing lab is in the report. Glucose [Mass/Vol] 116 mg/dL High 70-100 [facility] Comment on above: Performed By: #### A PTT, TSH5, HEMDF, LDH3, DDI2, BMP3M, ESR, FOLT3, URIC3, FEIBC, FERR3, B12, FT4M #### [facility] [address] [facility] [place] [address] #### HVAAO, ANA3, HEPAN, B2GPG, B2GPM, B2GPA #### [address] #### LUPUS #### The performing lab is in the report. Urea nitrogen [Mass/Vol] 22 mg/dL High 9-20 [facility] Comment on above: Performed By: #### A PTT, TSH5, HEMDF, LDH3, DDI2, BMP3M, ESR, FOLT3, URIC3, FEIBC, FERR3, B12, FT4M #### [facility] [address] [facility] [place] [address] #### HVAAO, ANA3, HEPAN, B2GPG, B2GPM, B2GPA #### [address] #### LUPUS #### The performing lab is in the report. Chloride [Moles/Vol] 101 mmol/L Normal 98-107 [facility] Comment on above: Performed By: #### A PTT, TSH5, HEMDF, LDH3, DDI2, BMP3M, ESR, FOLT3, URIC3, FEIBC, FERR3, B12, FT4M #### [facility] [address] [facility] [place] [address] #### HVAAO, ANA3, HEPAN, B2GPG, B2GPM, B2GPA #### [address] #### LUPUS #### The performing lab is in the report. Potassium [Moles/Vol] 3.2 mmol/L Low 3.5-5.1 [facility] Comment on above: Performed By: #### A PTT, TSH5, HEMDF, LDH3, DDI2, BMP3M, ESR, FOLT3, URIC3, FEIBC, FERR3, B12, FT4M #### [facility] [address] [place] [address] #### HVAAO, ANA3, HEPAN, B2GPG, B2GPM, B2GPA #### [address] [id number] #### LUPUS #### The performing lab is in the report. Sodium [Moles/Vol] 137 mmol/L Normal 135-145 [facility] Comment on above: Performed By: #### A PTT, TSH5, HEMDF, LDH3, DDI2, BMP3M, ESR, FOLT3, URIC3, FEIBC, FERR3, B12, FT4M #### [facility] [address] [place] [address] #### HVAAO, ANA3, HEPAN, B2GPG, B2GPM, B2GPA #### [address] [address] #### LUPUS #### The performing lab is in the report. CTA Chest w/ + w/o Contrasto n 11-02-2021 CTA Chest w/ + w/o Contrast Patient Name: CHAY TEAGUE Computed Tomography ACCESSION EXAM DATE/TIME PROCEDURE ORDERING PROVIDER [id number] 11/02/2021 17:43 EST CTA Chest w/ + w/o MD BERNARDINO, CAIN Contrast CPT code 73182 Q9967 Reason For Exam (CTA Chest w/ + w/o Contrast) LLE DVT, chest pain r/o PE Report Reasons for examination: Chest pain and DVT. CT scan of the chest were performed with bolus contrast and high resolution scans for CT pulmonary angiographic study, with images post-processed by myself on [employer] workstation, with 3D - volume rendered CT [...] Transcribed Date and Time: 11/02/2021 5:56 Normal [facility] ED Provider Noteon ED Provider Note Emergency Department Encounter [facility] ED Patient: Chay Teague : 1945 [...] leg according to my discussion with the coremaker pipe. Plan is to admit to medicine with [...] are mis-transcribed.) LUIS STERN MD Acute Care [facility] Luis Stern MD 11/03/21 0736 [facility] ED [place] [facility] ED Patient: Chay Teague : 1945 Date of Evaluation: 11/02/2021 ED DANETTE Provider: Sharri Morel PA-C EDcare was supervised by Dr. Stern who independently examined and evaluated the patient. Please see their attestation note for further details. I was wearing an N95 mask, surgical mask, and goggles. Chief Complaint Chief Complaint Patient presents with ? Leg Swelling [place]IRIE BAND Chay Teague is a 76 y.o. female [...] otherwise acutely negative except as in the PRAIRIE BAND. Past History Past Medical History: Diagnosis Date [...] and Family: Not on file ? Attends [employer]: Not on file ? Active Member [...] (2.5 MG/3M (more content not included)... Normal [facility] Hemogram w/ Autodiffon 11-02 Abs Baso Cnt 0.1 10*3/uL Normal 0.0-0.2 [facility] Comment on above: Performed By: #### A PTT, TSH5, HEMDF, LDH3, DDI2, BMP3M, ESR, FOLT3, URIC3, FEIBC, FERR3, B12, FT4M #### [facility] [address] [place] [address] #### HVAAO, ANA3, HEPAN, B2GPG, B2GPM, B2GPA #### [address] #### LUPUS #### The performing lab is in the report. Abs Neutrophile Cnt 6.8 10*3/uL Normal 1.8-7.0 [facility] Comment on above: Performed By: #### A PTT, TSH5, HEMDF, LDH3, DDI2, BMP3M, ESR, FOLT3, URIC3, FEIBC, FERR3, B12, FT4M #### [facility] [address] [place] [address] #### HVAAO, ANA3, HEPAN, B2GPG, B2GPM, B2GPA #### [address] [address] #### LUPUS #### The performing lab is in the report. Basophils/100 WBC (Bld) 0.8 % Normal 0.0-2.0 [facility] Comment on above: Performed By: #### A PTT, TSH5, HEMDF, LDH3, DDI2, BMP3M, ESR, FOLT3, URIC3, FEIBC, FERR3, B12, FT4M #### [facility] [address] [place] [id number] #### HVAAO, ANA3, HEPAN, B2GPG, B2GPM, B2GPA #### [address] #### LUPUS #### The performing lab is in the report. Eosinophils (Bld) [#/Vol] 0.3 10*3/uL Normal 0.0-0.5 [facility] Comment on above: Performed By: #### A PTT, TSH5, HEMDF, LDH3, DDI2, BMP3M, ESR, FOLT3, URIC3, FEIBC, FERR3, B12, FT4M #### [address] [place] [address] #### HVAAO, ANA3, HEPAN, B2GPG, B2GPM, B2GPA #### [address] #### LUPUS #### The performing lab is in the report. Eosinophils/100 WBC (Bld) 2.9 % Normal 1.0-6.0 [facility] Comment on above: Performed By: #### A PTT, TSH5, HEMDF, LDH3, DDI2, BMP3M, ESR, FOLT3, URIC3, FEIBC, FERR3, B12, FT4M #### [address] [place] [address] #### HVAAO, ANA3, HEPAN, B2GPG, B2GPM, B2GPA #### [address] #### LUPUS #### The performing lab is in the report. Erythrocyte distribution width (RBC) [Ratio] 15.2 % High 11.5-14.5 [facility] Comment on above: Performed By: #### A PTT, TSH5, HEMDF, LDH3, DDI2, BMP3M, ESR, FOLT3, URIC3, FEIBC, FERR3, B12, FT4M #### [address] [place] [address] #### HVAAO, ANA3, HEPAN, B2GPG, B2GPM, B2GPA #### [address] #### LUPUS #### The performing lab is in the report. Granulocytes/100 WBC (Bld) 62.6 % Normal 40.0-80.0 [facility] Comment on above: Performed By: #### A PTT, TSH5, HEMDF, LDH3, DDI2, BMP3M, ESR, FOLT3, URIC3, FEIBC, FERR3, B12, FT4M #### [address] [place] [address] #### HVAAO, ANA3, HEPAN, B2GPG, B2GPM, B2GPA #### [address] #### LUPUS #### The performing lab is in the report. Hematocrit (Bld) [Volume fraction] 41.3 % Normal 35.0-47.0 [facility] Comment on above: Performed By: #### A PTT, TSH5, HEMDF, LDH3, DDI2, BMP3M, ESR, FOLT3, URIC3, FEIBC, FERR3, B12, FT4M #### [address] [place] [address] #### HVAAO, ANA3, HEPAN, B2GPG, B2GPM, B2GPA #### [address] #### LUPUS #### The performing lab is in the report. Hemoglobin (Bld) [Mass/Vol] 13.9 g/dL Normal 11.7-16.0 [facility] Comment on above: Performed By: #### A PTT, TSH5, HEMDF, LDH3, DDI2, BMP3M, ESR, FOLT3, URIC3, FEIBC, FERR3, B12, FT4M #### [address] [place] #### HVAAO, ANA3, HEPAN, B2GPG, B2GPM, B2GPA #### [address] #### LUPUS #### The performing lab is in the report. Lymphocytes (Bld) [#/Vol] 2.6 10*3/uL Normal 1.0-4.3 [facility] Comment on above: Performed By: #### A PTT, TSH5, HEMDF, LDH3, DDI2, BMP3M, ESR, FOLT3, URIC3, FEIBC, FERR3, B12, FT4M #### [address] [place] #### HVAAO, ANA3, HEPAN, B2GPG, B2GPM, B2GPA #### [address] #### LUPUS #### The performing lab is in the report. Lymphocytes/100 WBC (Bld) 23.6 % Normal 20.0-40.0 [facility] Comment on above: Performed By: #### A PTT, TSH5, HEMDF, LDH3, DDI2, BMP3M, ESR, FOLT3, URIC3, FEIBC, FERR3, B12, FT4M #### [address] [place] #### HVAAO, ANA3, HEPAN, B2GPG, B2GPM, B2GPA #### [address] #### LUPUS #### The performing lab is in the report. MCH (RBC) [Entitic mass] 30.7 pg Normal 26.0-34.0 [facility] Comment on above: Performed By: #### A PTT, TSH5, HEMDF, LDH3, DDI2, BMP3M, ESR, FOLT3, URIC3, FEIBC, FERR3, B12, FT4M #### [address] [place] #### HVAAO, ANA3, HEPAN, B2GPG, B2GPM, B2GPA #### [address] #### LUPUS #### The performing lab is in the report. MCHC 33.6 % Normal 32.0-36.0 [facility] Comment on above: Performed By: #### A PTT, TSH5, HEMDF, LDH3, DDI2, BMP3M, ESR, FOLT3, URIC3, FEIBC, FERR3, B12, FT4M #### [facility] [address] [place] [address] #### HVAAO, ANA3, HEPAN, B2GPG, B2GPM, B2GPA #### [address] #### LUPUS #### The performing lab is in the report. MCV (RBC) [Entitic vol] 91.2 fL Normal 79.0-98.0 [facility] Comment on above: Performed By: #### A PTT, TSH5, HEMDF, LDH3, DDI2, BMP3M, ESR, FOLT3, URIC3, FEIBC, FERR3, B12, FT4M #### [facility] [address] [place] [address] #### HVAAO, ANA3, HEPAN, B2GPG, B2GPM, B2GPA #### [address] #### LUPUS #### The performing lab is in the report. Monocytes (Bld) [#/Vol] 1.1 10*3/uL High 0.0-0.8 [facility] Comment on above: Performed By: #### A PTT, TSH5, HEMDF, LDH3, DDI2, BMP3M, ESR, FOLT3, URIC3, FEIBC, FERR3, B12, FT4M #### [facility] [address] [place] [address] #### HVAAO, ANA3, HEPAN, B2GPG, B2GPM, B2GPA #### [address] #### LUPUS #### The performing lab is in the report. Monocytes/100 WBC (Bld) 10.1 % High 2.0-10.0 [facility] Comment on above: Performed By: #### A PTT, TSH5, HEMDF, LDH3, DDI2, BMP3M, ESR, FOLT3, URIC3, FEIBC, FERR3, B12, FT4M #### [facility] [address] [facility] [place] [address] #### HVAAO, ANA3, HEPAN, B2GPG, B2GPM, B2GPA #### [place] [address] [place], [place] #### LUPUS #### The performing lab is in the report. Platelet mean volume (Bld) [Entitic vol] 8.9 fL Normal 7.4-10.4 [facility] Comment on above: Performed By: #### A PTT, TSH5, HEMDF, LDH3, DDI2, BMP3M, ESR, FOLT3, URIC3, FEIBC, FERR3, B12, FT4M #### [facility] [address] [place], [place] #### HVAAO, ANA3, HEPAN, B2GPG, B2GPM, B2GPA #### [address] #### LUPUS #### The performing lab is in the report. Platelets (Bld) [#/Vol] 208 10*3/uL Normal 140-440 [facility] Comment on above: Performed By: #### A PTT, TSH5, HEMDF, LDH3, DDI2, BMP3M, ESR, FOLT3, URIC3, FEIBC, FERR3, B12, FT4M #### [facility] [address] [facility] [place] [address] #### HVAAO, ANA3, HEPAN, B2GPG, B2GPM, B2GPA #### [address] #### LUPUS #### The performing lab is in the report. RBC (Bld) [#/Vol] 4.53 10*6/uL Normal 3.80-5.20 [facility] Comment on above: Performed By: #### A PTT, TSH5, HEMDF, LDH3, DDI2, BMP3M, ESR, FOLT3, URIC3, FEIBC, FERR3, B12, FT4M #### [facility] [address] [place] [address] #### HVAAO, ANA3, HEPAN, B2GPG, B2GPM, B2GPA #### [address] [address] #### LUPUS #### The performing lab is in the report. WBC (Bld) [#/Vol] 10.9 10*3/uL High 3.6-10.7 [facility] Comment on above: Performed By: #### A PTT, TSH5, HEMDF, LDH3, DDI2, BMP3M, ESR, FOLT3, URIC3, FEIBC, FERR3, B12, FT4M #### [facility] [address] [place] [address] #### HVAAO, ANA3, HEPAN, B2GPG, B2GPM, B2GPA #### [address] [address] #### LUPUS #### The performing lab is in the report. Prothrombin Timeon 2 INR 1.0 Normal 0.9-1.1 [facility] Comment on above: Result Comment: Kwaku [...] FOLT3, URIC3, FEIBC, FERR3, B12, FT4M #### [place] [address] [place] [address] #### HVAAO, ANA3, HEPAN, B2GPG, B2GPM, B2GPA #### [address] #### LUPUS #### The performing lab is in the report. PT Coag (PPP) [Time] 10.6 s Normal 9.0-12.0 [facility] Comment on above: Result Comment: . Performed By: #### A PTT, TSH5, HEMDF, LDH3, DDI2, BMP3M, ESR, FOLT3, URIC3, FEIBC, FERR3, B12, FT4M #### [place] [address] [place] [address] #### HVAAO, ANA3, HEPAN, B2GPG, B2GPM, B2GPA #### [address] #### LUPUS #### The performing lab is in the report. Troponin Ion 11-02-2021 Troponin I.cardiac [Mass/Vol] ng/mL Normal 0.000-0.034 [facility] Comment on above: Result Comment: . Performed By: #### A PTT, TSH5, HEMDF, LDH3, DDI2, BMP3M, ESR, FOLT3, URIC3, FEIBC, FERR3, B12, FT4M #### [address] [place] [address] #### HVAAO, ANA3, HEPAN, B2GPG, B2GPM, B2GPA #### [address] #### LUPUS #### The performing lab is in the report. VL Venous Duplex US Lower Ex t Lefton 11-02-2021 VL Venous Duplex US Lower Ext Left Patient Name: CHAY TEAGUE Ultrasound ACCESSION EXAM DATE/TIME PROCEDURE ORDERING PROVIDER [id number] 11/02/2021 13:09 EST VL Venous Duplex [place] [id number] -SHARRI FATIMA Lower Ext Left CPT code 23526 Reason For Exam (VL Venous Duplex US Lower Ext Left) left lower leg swelling - new onset today Report [facility] Lower Extremity Venous Duplex Report Patient Chay Teague : 1945 Study 11/02/2021 Name: Krystal (76yrs) Date: Age: 76 Account: [id number] Gender: F Loc: 444 BP: Ordering Physician: Sharri Fatima Field Sales Manager: Mikal Serna RVT Interpreting Physician: Christofer Carrillo MD Location: [facility] Indications: Edema left entire leg. [...] supine position. Images were obtained using a [employer] vascular ultrasound machine. The study was technically [...] Christofer Carrillo (more content not included)... Normal [facility] KNEE CMPLT, 4 OR MORE VIEWSo n 08-29-2021 KNEE CMPLT, 4 OR MORE VIEWS Patient Name: CHAY TEAGUE STUDY: KNEE; COMPLT, 4 OR MORE VIEWS INDICATION: knee pain M25.562: Knee pain, left. COMPARISON: None ACCESSION NUMBER(S): [id number] ORDERING CLINICIAN: NIMCO TURNER FINDINGS: Four views left knee demonstrate minimal degenerative change. No fracture seen. No osseous abnormality. IMPRESSION: No acute findings left knee. Electronically signed by: JACKLYN MURDOCK MD Normal [facility] Office Visit (Urgent Care)on 08-29-2021 Follow-up visit Diagnoses/Problems Assessed Knee pain, left (719.46) (M25.562) Orders Knee pain, left Xray Knee Complete 4 or more View; Status:Resulted - Requires Verification; Done: [id number] 07:42PM Performed:[facility]; Due:27Nov2021;Ordered; Stat; For:Knee pain, left; Ordered [...] Thx. Vitals Vital Signs Recorded: 29Aug2021 07:41PM Gkyyxbldasg83.3 F Heart Uill967 Jfztfdhbuzd66 Ksftjhgo213 Xmwfgxonn60 Height5 ft 1 in Gmhfcu595 lb BMI Acsembrkta81.9 kg/m2 BSA Calculated1.85 Tobacco Useb) No Fall Screeningb) One or more falls in the last year O2 Zkfinhfxde80 Physical Exam Constitutional: Well developed, well nourished. [...] Results/Data Xray Knee Complete 4 or more [id number] 07:42PMNimco Turner Test NameResultFlagReference Xray Knee Complete 4 or more View(Report) FINAL REPORT Interpreted by: JACKLYN MURDOCK CHRISTOPHER, MD 08/29/21 19:50 Patient Name: CHAY TEAGUE STUDY: KNEE; COMPLT, 4 OR MORE VIEWS INDICATION: knee pain M25.562: Knee pain, left. COMPARISON: None ACCESSION NUMBER(S): [id number] ORDERING CLINICIAN: NIMCO TURNER FINDINGS: Four views left knee demonstrate minimal degenerative change. No fracture seen. No osseous abnormality. IMPRESSION: No acute findings left knee. Electronically signed by: JACKLYN MURDOCK 08/29/21 19:50 Signatures Electronically signed by : Nimco Turner, CHAPITO-METAL CUT OFF SAW OPERATOR; Aug 29 2021 8:16PM EST (Author) Normal [...] 1.8 - 7.0 10*3/uL [facility] Work Phone: [phone] Basophils/100 WBC (Bld) 0.8 % 0.0 - 2.0 % [facility] Work Phone: Eosinophils (Bld) [#/Vol] 0.3 10*3/uL 0.0 - 0.5 10*3/uL [facility] Work Phone: Eosinophils/100 WBC (Bld) 3.2 % 1.0 - 6.0 % [facility] Work Phone: [phone] Granulocytes/100 WBC (Bld) 59.4 % 40.0 - 80.0 % [facility] Work Phone: Hematocrit (Bld) [Volume fraction] 44.8 % 35.0 - 47.0 % [facility] Work Phone: Hemoglobin.gastrointes tinal spec 1 Ql (Stl) 15.1 g/dL 11.7 - 16.0 g/dL [facility] Work Phone: Interpretation and review of laboratory results Abnormal [facility] Work Phone: Lymphocytes (Bld) [#/Vol] 2.3 10*3/uL 1.0 - 4.3 10*3/uL [facility] Work Phone: Lymphocytes/100 WBC (Bld) 28.2 % 20.0 - 40.0 % [facility] Work Phone: 1() 222 MCH (RBC) [Entitic mass] 30.4 pg 26.0 - 34.0 pg [facility] Work Phone: [phone] 222 MCHC (RBC) [Mass/Vol] 33.6 % 32.0 - 36.0 % [facility] Work Phone: 1() 222 MCV (RBC) [Entitic vol] 90.3 fL 79.0 - 98.0 fL [facility] Work Phone: [phone] 222 Monocytes (Bld) [#/Vol] 0.7 10*3/uL 0.0 - 0.8 10*3/uL [facility] Work Phone: [phone] 222 Monocytes/100 WBC (Bld) 8.4 % 2.0 - 10.0 % [employer] Work Phone: 1() 222 Platelet distribution width (Bld) [Ratio] 14.6 % High 11.5 - 14.5 % [employer] Work Phone: 1() 222 Platelet mean volume (Bld) [Entitic vol] 8.0 fL 7.4 - 10.4 fL [facility] Work Phone: 1() 222 Platelets (Bld) [#/Vol] 268 10*3/uL 140 - 440 10*3/uL [facility] Work Phone: () 222 RBC (Bld) [#/Vol] 4.96 10*6/uL 3.80 - 5.2 0 10*6/uL [facility] Work Phone: 1() 222 WBC (Bld) [#/Vol] 8.2 10*3/uL 3.6 - 10.7 10*3/uL [facility] Work Phone: [phone] Test Performed by [facility], [facility] Sherita Anderson , [place], [place] [address] [facility] Work Phone: 1() [facility] Work Phone: [phone] Comp Metabolic Panelon 05-10 ALP [Catalytic activity/Vol] 122 U/L Normal 38-126 [facility] [employer] [facility] Comment on above: Performed By: #### A PTT, TSH5, HEMDF, LDH3, DDI2, BMP3M, ESR, FOLT3, URIC3, FEIBC, FERR3, B12, FT4M #### [place] [address] [place] [address] #### HVAAO, ANA3, HEPAN, B2GPG, B2GPM, B2GPA #### [address] #### LUPUS #### The performing lab is in the report. ALT [Catalytic activity/Vol] 19 U/L Normal 0-34 [facility] Comment on above: Result Comment: The ALT test is performed by an updated assay method. Please note that the reference intervals have been changed and are now sex specific. Performed By: #### A PTT, TSH5, HEMDF, LDH3, DDI2, BMP3M, ESR, FOLT3, URIC3, FEIBC, FERR3, B12, FT4M #### [address] [place] [address] #### HVAAO, ANA3, HEPAN, B2GPG, B2GPM, B2GPA #### [address] #### LUPUS #### The performing lab is in the report. AST [Catalytic activity/Vol] 33 U/L Normal 15-46 [facility] Comment on above: Performed By: #### A PTT, TSH5, HEMDF, LDH3, DDI2, BMP3M, ESR, FOLT3, URIC3, FEIBC, FERR3, B12, FT4M #### [address] [place] [address] #### HVAAO, ANA3, HEPAN, B2GPG, B2GPM, B2GPA #### [address] #### LUPUS #### The performing lab is in the report. Calcium [Mass/Vol] 9.8 mg/dL Normal 8.4-10.4 [facility] Comment on above: Performed By: #### A PTT, TSH5, HEMDF, LDH3, DDI2, BMP3M, ESR, FOLT3, URIC3, FEIBC, FERR3, B12, FT4M #### [facility] [address] [place] [address] #### HVAAO, ANA3, HEPAN, B2GPG, B2GPM, B2GPA #### [address] #### LUPUS #### The performing lab is in the report. Glucose [Mass/Vol] 98 mg/dL Normal 70-100 [facility] Comment on above: Performed By: #### A PTT, TSH5, HEMDF, LDH3, DDI2, BMP3M, ESR, FOLT3, URIC3, FEIBC, FERR3, B12, FT4M #### [place] [address] [place] #### HVAAO, ANA3, HEPAN, B2GPG, B2GPM, B2GPA #### [address] #### LUPUS #### The performing lab is in the report. Protein [Mass/Vol] 8.0 g/dL Normal 6.3-8.2 [facility] Comment on above: Performed By: #### A PTT, TSH5, HEMDF, LDH3, DDI2, BMP3M, ESR, FOLT3, URIC3, FEIBC, FERR3, B12, FT4M #### [place] [address] [place] #### HVAAO, ANA3, HEPAN, B2GPG, B2GPM, B2GPA #### [address] #### LUPUS #### The performing lab is in the report. Urea nitrogen [Mass/Vol] 22 mg/dL High 7-20 [facility] Comment on above: Performed By: #### A PTT, TSH5, HEMDF, LDH3, DDI2, BMP3M, ESR, FOLT3, URIC3, FEIBC, FERR3, B12, FT4M #### [place] [address] [place] [address] #### HVAAO, ANA3, HEPAN, B2GPG, B2GPM, B2GPA #### [address] #### LUPUS #### The performing lab is in the report. Anion gap [Moles/Vol] 6 mmol/L Normal 3-13 [facility] Comment on above: Performed By: #### A PTT, TSH5, HEMDF, LDH3, DDI2, BMP3M, ESR, FOLT3, URIC3, FEIBC, FERR3, B12, FT4M #### [address] [facility] [place] #### HVAAO, ANA3, HEPAN, B2GPG, B2GPM, B2GPA #### [address] #### LUPUS #### The performing lab is in the report. Bilirubin [Mass/Vol] 0.7 mg/dL Normal 0.2-1.3 [facility] Comment on above: Performed By: #### A PTT, TSH5, HEMDF, LDH3, DDI2, BMP3M, ESR, FOLT3, URIC3, FEIBC, FERR3, B12, FT4M #### [address] [facility] [place] [address] #### HVAAO, ANA3, HEPAN, B2GPG, B2GPM, B2GPA #### [address] #### LUPUS #### The performing lab is in the report. CO2 [Moles/Vol] 30 mmol/L Normal 22-30 [facility] Comment on above: Performed By: #### A PTT, TSH5, HEMDF, LDH3, DDI2, BMP3M, ESR, FOLT3, URIC3, FEIBC, FERR3, B12, FT4M #### [address] [facility] [place] [address] #### HVAAO, ANA3, HEPAN, B2GPG, B2GPM, B2GPA #### [address] [address] #### LUPUS #### The performing lab is in the report. Creatinine [Mass/Vol] 0.99 mg/dL Normal 0.52-1.25 [facility] Comment on above: Performed By: #### A PTT, TSH5, HEMDF, LDH3, DDI2, BMP3M, ESR, FOLT3, URIC3, FEIBC, FERR3, B12, FT4M #### [facility] [address] [place] [address] #### HVAAO, ANA3, HEPAN, B2GPG, B2GPM, B2GPA #### [facility] [address] [place] [address] #### LUPUS #### The performing lab is in the report. GFR/1.73 sq M.predicted among blacks MDRD (S/P/Bld) [Vol rate/Area] 63.2 mL/min/{1.73_m2} Normal >60 [facility] Comment on above: Performed By: #### A PTT, TSH5, HEMDF, LDH3, DDI2, BMP3M, ESR, FOLT3, URIC3, FEIBC, FERR3, B12, FT4M #### [facility] [address] [place] [address] #### HVAAO, ANA3, HEPAN, B2GPG, B2GPM, B2GPA #### [place] [address] [place] [address] #### LUPUS #### The performing lab is in the report. GFR/1.73 sq M.predicted among non-blacks MDRD (S/P/Bld) [Vol rate/Area] 54.6 mL/min/{1.73_m2} Abnormal >60 [facility] Comment on above: Result Comment: KDIG [...] FOLT3, URIC3, FEIBC, FERR3, B12, FT4M #### [facility] [address] [place] [address] #### HVAAO, ANA3, HEPAN, B2GPG, B2GPM, B2GPA #### [address] [address] #### LUPUS #### The performing lab is in the report. Albumin [Mass/Vol] 4.1 g/dL Normal 3.5-5.0 [facility] Comment on above: Performed By: #### A PTT, TSH5, HEMDF, LDH3, DDI2, BMP3M, ESR, FOLT3, URIC3, FEIBC, FERR3, B12, FT4M #### [facility] [address] [place] [address] #### HVAAO, ANA3, HEPAN, B2GPG, B2GPM, B2GPA #### [address] [address] #### LUPUS #### The performing lab is in the report. Chloride [Moles/Vol] 105 mmol/L Normal 98-107 [facility] Comment on above: Performed By: #### A PTT, TSH5, HEMDF, LDH3, DDI2, BMP3M, ESR, FOLT3, URIC3, FEIBC, FERR3, B12, FT4M #### [address] [place] [address] #### HVAAO, ANA3, HEPAN, B2GPG, B2GPM, B2GPA #### [address] #### LUPUS #### The performing lab is in the report. Potassium [Moles/Vol] 4.3 mmol/L Normal 3.5-5.1 [facility] Comment on above: Performed By: #### A PTT, TSH5, HEMDF, LDH3, DDI2, BMP3M, ESR, FOLT3, URIC3, FEIBC, FERR3, B12, FT4M #### [place] [address] [place] [address] #### HVAAO, ANA3, HEPAN, B2GPG, B2GPM, B2GPA #### [address] #### LUPUS #### The performing lab is in the report. Sodium [Moles/Vol] 141 mmol/L Normal 135-145 [facility] Comment on above: Performed By: #### A PTT, TSH5, HEMDF, LDH3, DDI2, BMP3M, ESR, FOLT3, URIC3, FEIBC, FERR3, B12, FT4M #### [place] [address] [place] [address] #### HVAAO, ANA3, HEPAN, B2GPG, B2GPM, B2GPA #### [address] #### LUPUS #### The performing lab is in the report. Comprehensive Metabolic Pane lOrdered By: Cynthia Uribe on 05-10-2021 Albumin [Mass/Vol] 4.1 g/dL 3.5 - 5.0 g/dL [facility] Work Phone: [phone] ALP (Bld) [Catalytic activity/Vol] 122 U/L 38 - 126 U/L [facility] Work Phone: ALT [Catalytic activity/Vol] 19 U/L 0 - 34 U/L [facility] Work Phone: Comment on above: The ALT test is perf ormed by an updated assay method. Please note that the reference intervals have been changed and are now sex specific. Anion gap [Moles/Vol] 6 mmol/L 3 - 13 mmol/L [facility] Work Phone: AST [Catalytic activity/Vol] 33 U/L 15 - 46 U/L [facility] Work Phone: Bilirubin [Mass/Vol] 0.7 mg/dL 0.2 - 1 .3 mg/dL [facility] Work Phone: Calcium [Mass/Vol] 9.8 mg/dL 8.4 - 10. 4 mg/dL [facility] Work Phone: [phone] Chloride [Moles/Vol] 105 mmol/L 98 - 10 7 mmol/L [facility] Work Phone: [phone] CO2 [Moles/Vol] 30 mmol/L 22 - 30 mmol/L [facility] Work Phone: Creatinine [Mass/Vol] 0.99 mg/dL 0.52 - 1.25 mg/dL [facility] Work Phone: EGFR IF NonAfrican Maldivian 54.6 mL/min Abnormal >60 [facility] Work Phone: Comment on above: KDIGO [...] fraction] 8.0 g/dL 6.3 - 8.2 g/dL [facility] Work Phone: GFR/1.73 sq M.predicted among blacks MDRD (S/P/Bld) [Vol rate/Area] 63.2 mL/min/{1.73_m2} >60 [facility] Work Phone: [phone] Glucose [Mass/Vol] 98 mg/dL 70 - 100 mg/dL [facility] Work Phone: [phone] Interpretation and review of laboratory results Abnormal [facility] Work Phone: [phone] Potassium [Moles/Vol] 4.3 mmol/L 3.5 - 5.1 mmol/L [facility] Work Phone: [phone] Sodium [Moles/Vol] 141 mmol/L 135 - 145 mmol/L [facility] Work Phone: [phone] Urea nitrogen (BldV) [Mass/Vol] 22 mg/dL High 7 - 20 mg/dL [facility] Work Phone: [phone] Test Performed by [facility], [facility] Anderson , [address] Work Phone: [phone] [facility] Work Phone: [phone] Hemogram w/ Autodiffon 05-10 Abs Baso Cnt 0.1 10*3/uL Normal 0.0-0.2 [facility] Comment on above: Performed By: #### A PTT, TSH5, HEMDF, LDH3, DDI2, BMP3M, ESR, FOLT3, URIC3, FEIBC, FERR3, B12, FT4M #### [facility] [employer] [address] [place] [address] #### HVAAO, ANA3, HEPAN, B2GPG, B2GPM, B2GPA #### [facility] [employer] (deal united) [address] [address] #### LUPUS #### The performing lab is in the report. Abs Neutrophile Cnt 4.9 10*3/uL Normal 1.8-7.0 [facility] Comment on above: Performed By: #### A PTT, TSH5, HEMDF, LDH3, DDI2, BMP3M, ESR, FOLT3, URIC3, FEIBC, FERR3, B12, FT4M #### [facility] [employer] [address] [place] [address] #### HVAAO, ANA3, HEPAN, B2GPG, B2GPM, B2GPA #### [address] #### LUPUS #### The performing lab is in the report. Basophils/100 WBC (Bld) 0.8 % Normal 0.0-2.0 [facility] Comment on above: Performed By: #### A PTT, TSH5, HEMDF, LDH3, DDI2, BMP3M, ESR, FOLT3, URIC3, FEIBC, FERR3, B12, FT4M #### [facility] [address] [place] [address] #### HVAAO, ANA3, HEPAN, B2GPG, B2GPM, B2GPA #### [address] #### LUPUS #### The performing lab is in the report. Eosinophils (Bld) [#/Vol] 0.3 10*3/uL Normal 0.0-0.5 [facility] Comment on above: Performed By: #### A PTT, TSH5, HEMDF, LDH3, DDI2, BMP3M, ESR, FOLT3, URIC3, FEIBC, FERR3, B12, FT4M #### [facility] [address] [place], [place] #### HVAAO, ANA3, HEPAN, B2GPG, B2GPM, B2GPA #### [address] #### LUPUS #### The performing lab is in the report. Eosinophils/100 WBC (Bld) 3.2 % Normal 1.0-6.0 [facility] Comment on above: Performed By: #### A PTT, TSH5, HEMDF, LDH3, DDI2, BMP3M, ESR, FOLT3, URIC3, FEIBC, FERR3, B12, FT4M #### [facility] [address] [place] #### HVAAO, ANA3, HEPAN, B2GPG, B2GPM, B2GPA #### [address] #### LUPUS #### The performing lab is in the report. Erythrocyte distribution width (RBC) [Ratio] 14.6 % High 11.5-14.5 [facility] Comment on above: Performed By: #### A PTT, TSH5, HEMDF, LDH3, DDI2, BMP3M, ESR, FOLT3, URIC3, FEIBC, FERR3, B12, FT4M #### [facility] [address] [place] [address] #### HVAAO, ANA3, HEPAN, B2GPG, B2GPM, B2GPA #### [address] #### LUPUS #### The performing lab is in the report. Granulocytes/100 WBC (Bld) 59.4 % Normal 40.0-80.0 [facility] Comment on above: Performed By: #### A PTT, TSH5, HEMDF, LDH3, DDI2, BMP3M, ESR, FOLT3, URIC3, FEIBC, FERR3, B12, FT4M #### [facility] [address] [place] [address] #### HVAAO, ANA3, HEPAN, B2GPG, B2GPM, B2GPA #### [address] #### LUPUS #### The performing lab is in the report. Hematocrit (Bld) [Volume fraction] 44.8 % Normal 35.0-47.0 [facility] Comment on above: Performed By: #### A PTT, TSH5, HEMDF, LDH3, DDI2, BMP3M, ESR, FOLT3, URIC3, FEIBC, FERR3, B12, FT4M #### [facility] [address] [facility] [place] [address] #### HVAAO, ANA3, HEPAN, B2GPG, B2GPM, B2GPA #### [address] #### LUPUS #### The performing lab is in the report. Hemoglobin (Bld) [Mass/Vol] 15.1 g/dL Normal 11.7-16.0 [facility] Comment on above: Performed By: #### A PTT, TSH5, HEMDF, LDH3, DDI2, BMP3M, ESR, FOLT3, URIC3, FEIBC, FERR3, B12, FT4M #### [facility] [address] [facility] [place] [address] #### HVAAO, ANA3, HEPAN, B2GPG, B2GPM, B2GPA #### [address] #### LUPUS #### The performing lab is in the report. Lymphocytes (Bld) [#/Vol] 2.3 10*3/uL Normal 1.0-4.3 [facility] Comment on above: Performed By: #### A PTT, TSH5, HEMDF, LDH3, DDI2, BMP3M, ESR, FOLT3, URIC3, FEIBC, FERR3, B12, FT4M #### [place] [address] [place] [address] #### HVAAO, ANA3, HEPAN, B2GPG, B2GPM, B2GPA #### [address] #### LUPUS #### The performing lab is in the report. Lymphocytes/100 WBC (Bld) 28.2 % Normal 20.0-40.0 [facility] Comment on above: Performed By: #### A PTT, TSH5, HEMDF, LDH3, DDI2, BMP3M, ESR, FOLT3, URIC3, FEIBC, FERR3, B12, FT4M #### [place] [address] [facility] [place] [address] #### HVAAO, ANA3, HEPAN, B2GPG, B2GPM, B2GPA #### [address] #### LUPUS #### The performing lab is in the report. MCH (RBC) [Entitic mass] 30.4 pg Normal 26.0-34.0 [facility] Comment on above: Performed By: #### A PTT, TSH5, HEMDF, LDH3, DDI2, BMP3M, ESR, FOLT3, URIC3, FEIBC, FERR3, B12, FT4M #### [facility] [address] [place] [address] #### HVAAO, ANA3, HEPAN, B2GPG, B2GPM, B2GPA #### [address] #### LUPUS #### The performing lab is in the report. MCHC 33.6 % Normal 32.0-36.0 [facility] Comment on above: Performed By: #### A PTT, TSH5, HEMDF, LDH3, DDI2, BMP3M, ESR, FOLT3, URIC3, FEIBC, FERR3, B12, FT4M #### [facility] [address] [place] #### HVAAO, ANA3, HEPAN, B2GPG, B2GPM, B2GPA #### [address] #### LUPUS #### The performing lab is in the report. MCV (RBC) [Entitic vol] 90.3 fL Normal 79.0-98.0 [facility] Comment on above: Performed By: #### A PTT, TSH5, HEMDF, LDH3, DDI2, BMP3M, ESR, FOLT3, URIC3, FEIBC, FERR3, B12, FT4M #### [place] [address] [place] #### HVAAO, ANA3, HEPAN, B2GPG, B2GPM, B2GPA #### [address] #### LUPUS #### The performing lab is in the report. Monocytes (Bld) [#/Vol] 0.7 10*3/uL Normal 0.0-0.8 [facility] Comment on above: Performed By: #### A PTT, TSH5, HEMDF, LDH3, DDI2, BMP3M, ESR, FOLT3, URIC3, FEIBC, FERR3, B12, FT4M #### [address] [place] [address] #### HVAAO, ANA3, HEPAN, B2GPG, B2GPM, B2GPA #### [address] #### LUPUS #### The performing lab is in the report. Monocytes/100 WBC (Bld) 8.4 % Normal 2.0-10.0 [facility] Comment on above: Performed By: #### A PTT, TSH5, HEMDF, LDH3, DDI2, BMP3M, ESR, FOLT3, URIC3, FEIBC, FERR3, B12, FT4M #### [address] [place] [address] #### HVAAO, ANA3, HEPAN, B2GPG, B2GPM, B2GPA #### [address] #### LUPUS #### The performing lab is in the report. Platelet mean volume (Bld) [Entitic vol] 8.0 fL Normal 7.4-10.4 [facility] Comment on above: Performed By: #### A PTT, TSH5, HEMDF, LDH3, DDI2, BMP3M, ESR, FOLT3, URIC3, FEIBC, FERR3, B12, FT4M #### [address] [place] #### HVAAO, ANA3, HEPAN, B2GPG, B2GPM, B2GPA #### [address] #### LUPUS #### The performing lab is in the report. Platelets (Bld) [#/Vol] 268 10*3/uL Normal 140-440 [facility] Comment on above: Performed By: #### A PTT, TSH5, HEMDF, LDH3, DDI2, BMP3M, ESR, FOLT3, URIC3, FEIBC, FERR3, B12, FT4M #### [place] [address] [place] [address] #### HVAAO, ANA3, HEPAN, B2GPG, B2GPM, B2GPA #### [address] #### LUPUS #### The performing lab is in the report. RBC (Bld) [#/Vol] 4.96 10*6/uL Normal 3.80-5.20 [facility] Comment on above: Performed By: #### A PTT, TSH5, HEMDF, LDH3, DDI2, BMP3M, ESR, FOLT3, URIC3, FEIBC, FERR3, B12, FT4M #### [address] [place] [address] #### HVAAO, ANA3, HEPAN, B2GPG, B2GPM, B2GPA #### [address] #### LUPUS #### The performing lab is in the report. WBC (Bld) [#/Vol] 8.2 10*3/uL Normal 3.6-10.7 [facility] Comment on above: Performed By: #### A PTT, TSH5, HEMDF, LDH3, DDI2, BMP3M, ESR, FOLT3, URIC3, FEIBC, FERR3, B12, FT4M #### [address] [place] [address] #### HVAAO, ANA3, HEPAN, B2GPG, B2GPM, B2GPA #### [address] #### LUPUS #### The performing lab is in the report. Hep C Antibodyon 05-10-2021 Hep C Antibody Not detected Normal Not Detected [facility] Comment on above: Result Comment: Patients with DETECTED Hepatitis C Ab results should have a new specimen submitted for supplemental testing with a Hepatitis C Quantitative RNA assay (viral load), if clinically indicated. Performed By: #### A PTT, TSH5, HEMDF, LDH3, DDI2, BMP3M, ESR, FOLT3, URIC3, FEIBC, FERR3, B12, FT4M #### [employer] [address] [place] [address] #### HVAAO, ANA3, HEPAN, B2GPG, B2GPM, B2GPA #### [employer] [address] [place] [address] #### LUPUS #### The performing lab is in the report. Hepatitis C AntibodyOrdered By: Cynthia Uribe on 05-10-2021 Hepatitis C Ab Not detected Not Detected NA [employer] Work Phone: Comment on above: Patients with DETECTED Hepatitis C Ab results should have a new specimen submitted for supplemental testing with a Hepatitis C Quantitative RNA assay (viral load), if clinically indicated. Test Performed by [facility] [employer] (deal united) [facility], [address] [place] [address] [employer] Work Phone: [employer] Work Phone: TSH without ReflexOrdered By : Cynthia Uribe on 05-10-2021 TSH Qn 2.583 u[IU]/mL 0.465 - 4.680 u[IU]/mL [employer] Work Phone: Test Performed by [facility] [employer] ([employer] united) [facility], [address] , [place], [place] [address] [employer] Work Phone: [employer] Work Phone: Thyroid Stim. Hormoneon 04-22 Thyroid Stim. Hormone 2.583 u[IU]/mL Normal 0.465-4.68 0 [facility] [employer] Comment on above: Performed By: #### A PTT, TSH5, HEMDF, LDH3, DDI2, BMP3M, ESR, FOLT3, URIC3, FEIBC, FERR3, B12, FT4M #### [employer] [address] [place] [address] #### HVAAO, ANA3, HEPAN, B2GPG, B2GPM, B2GPA #### [employer] [address] [place] [address] #### LUPUS #### The performing lab is in the report. Vit D 25-OH, Totalon 021 Vit D 25-OH, Total 51 ng/mL Normal 30-100 [facility] [employer] (deal united) [facility] Comment on above: Result Comment: Ther apy is based on measurement of Total 25- OHD with the following classification levels: Less than 20 ng/mL: Indicative of Vit D deficiency 20-30 ng/mL: Suggests Vit D insufficiency Optimal: Greater than or equal to 30 ng/mL Test performed by [employer], measuring Total Vitamin D, not individual fractions. Performed By: #### A PTT, TSH5, HEMDF, LDH3, DDI2, BMP3M, ESR, FOLT3, URIC3, FEIBC, FERR3, B12, FT4M #### [facility] [employer] (deal united) [facility] [address] [place] [address] #### HVAAO, ANA3, HEPAN, B2GPG, B2GPM, B2GPA #### [facility] [employer] (deal united) [address] [address] #### LUPUS #### The performing lab is in the report. Vitamin D 25 HydroxyOrdered By: Cynthia Uribe on 05-10-2021 Vit D, 25-Hydroxy 51 ng/mL 30 - 100 ng/mL [facility] Work Phone: Comment on above: Therapy is based on measurement of Total 25-OHD with the following classification levels: Less than 20 ng/mL: Indicative of Vit D deficiency 20-30 ng/mL: Suggests Vit D insufficiency Optimal: Greater than or equal to 30 ng/mL Test performed by [employer], measuring Total Vitamin D, not individual fractions. Test Performed by [facility] [employer] (deal united) [facility], [address], [place], [place] [address] [facility] Work Phone: [employer] Work Phone: Brain Natriuretic Peptideon 11-02-2020 Natriuretic peptide B (Bld) [Mass/Vol] 51 pg/mL 0 - 450 pg/mL [facility] Work Phone: COVID-19, Rapidon 11-02-2020 Sodium [Moles/Vol] see below [facility] Work Phone: Comment on above: Not Detected Expected Result: Not Detected _ Isothermal nucleic acid amplification performed on the [employer] Now System by the [facility] Negative results do not preclude SARS-CoV-2 infection and should not be used as the sole basis for treatment or other patient management decisions. This assay was developed by [employer] and distributed under an Emergency Use Authorization (EUA) granted by the FDA for the qualitative detection of SARS-CoV-2 nucleic acid. Provider and patient fact sheets can be found at https://www.fda.gov/media/130312/download and https://www.fda.gov/media/628152/download. Test Performed by [facility], [address] Work Phone: CT Abdomen Pelvis W Contrast on 11-02-2020 Patient Name: CHAY TEAGUE [employer] ACCESSION EXAM DATE/TIME PROCEDURE ORDERING PROVIDER [id number] 11/02/2020 17:[address] Abdomen/Pelvis w/ [place] [id number] JAME DEGROOT Contrast (IV Onl CPT code 02520 Q9967 Reason For Exam (CT Abdomen/Pelvis w/ [...] [facility] Incoming [facility] Results From [facility] - 11/02/2020 6:01 PM EST Patient Name: CHAY TEAGUE [employer] ACCESSION EXAM DATE/TIME PROCEDURE ORDERING PROVIDER [id number] 11/02/2020 17:[address] Abdomen/Pelvis w/ IV [id number] JAME DEGROOT Contrast (IV Onl CPT code 84068 Q9967 Reason For Exam (CT Abdomen/Pelvis w/ [...] Tomography ACCESSION EXAM DATE/TIME PROCEDURE ORDERING PROVIDER [id number] 11/02/2020 17:[address] Head or Brain w/o [id number] -GEORGE BESTER Contrast CPT code 90078 Reason For Exam (CT Head or Brain [...] and atrophic changes. Report Dictated on Workstation: [id number] --- Final --- Dictating Physician: MD WARNER WENDELL Signed Date and Time: 11/02/2020 5:36 pm Signed by: MD WARNER WENDELL Transcribed Date and Time: 11/02/2020 5:37 [facility] Work Phone: Jt, [facility] Incoming [facility] Results From [facility] - 11/02/2020 5:37 PM EST [id number] Tom[facility] ACCESSION EXAM DATE/TIME PROCEDURE ORDERING PROVIDER [id number] 11/02/2020 17:[address] Head or Brain w/o [id number] JAUREGUI Contrast CPT code 76495 Reason For Exam (CT Head or Brain [...] and atrophic changes. Report Dictated on Workstation: [id number] --- Final --- Dictating Physician: MD WARNER WENDELL Signed Date and Time: 11/02/2020 5:36 pm Signed by: MD WARNER WENDELL Transcribed Date and Time: 11/02/2020 5:37 [facility] Work Phone: CTA Chest W WO (PE study)on 11-02-2020 Patient Name: CHAY TEAGUE Comput[employer] Tomography ACCESSION EXAM DATE/TIME PROCEDURE ORDERING PROVIDER [id number] 11/02/2020 17:36 EST CTA Chest w/ + w/o [id number] -NASIR JAME Contrast CPT code 49508 Reason For Exam (CTA Chest w/ + [...] Time: 11/02/2020 5:51 [facility] Work Phone: Jt, nAton Incoming Radiology Results From [facility] - 11/02/2020 5:51 PM EST [facility]: [id number] Computed Tomography ACCESSION EXAM DATE/TIME PROCEDURE ORDERING PROVIDER [id number] 11/02/2020 17:36 EST CTA Chest w/ + w/o [id number] -JAME BEST Contrast CPT code 86040 Reason For Exam (CTA Chest w/ + [...] [Mass/Vol] 3.8 g/dL 3.5 - 5 g/dL [facility] Work Phone: ALP [Catalytic activity/Vol] 113 U/L 38 - 126 U/L [facility] Work Phone: [phone] ALT [Catalytic activity/Vol] 22 U/L 0 - 34 U/L [facility] Work Phone: Comment on above: The ALT test is perf ormed by an updated assay method. Please note that the reference intervals have been changed and are now sex specific. Anion gap [Moles/Vol] 7 mmol/L [facility] Work Phone: AST [Catalytic activity/Vol] 42 U/L 15 - 46 U/L [facility] Work Phone: [phone] Bilirubin Ql (U) 0.5 mg/dL 0.2 - 1.3 mg/dL [facility] Work Phone: [phone] Calcium [Mass/Vol] 9.1 mg/dL 8.4 - 10. 4 mg/dL [facility] Work Phone: [phone] Chloride [Moles/Vol] 102 mmol/L 98 - 10 7 mmol/L [facility] Work Phone: CO2 [Moles/Vol] 29 mmol/L 22 - 30 mmol/L [facility] Work Phone: [phone] Creatinine [Mass/Vol] 1.02 mg/dL 0.52 - 1.25 mg/dL [facility] Work Phone: EGFR IF NonAfrican Maldivian 52.8 mL/min Abnormal >60 [facility] Work Phone: Comment on above: KDIGO [...] [Mass/Vol] 100 mg/dL 70 - 100 mg/dL [facility] Work Phone: [phone] Interpretation and review of laboratory results Abnormal [facility] Work Phone: 222 Potassium [Moles/Vol] 3.3 mmol/L Low 3.5 - 5.1 mmol/L [facility] Work Phone: 222 Protein [Mass/Vol] 7.0 g/dL 6.3 - 8.2 g/dL [facility] Work Phone: 222 Sodium [Moles/Vol] 138 mmol/L 135 - 145 mmol/L [facility] Work Phone: 222 Urea nitrogen [Mass/Vol] 16 mg/dL 7 - 20 mg/dL [facility] Work Phone: 222 Hemogram (CBC) w/Auto Diffon 11-02-2020 Absolute Baso # 0.1 10*3/uL 0 - 0.2 10*3/uL [facility] Work Phone: ) 222 Absolute Neut # 5.4 10*3/uL 1.8 - 7 10*3/uL [facility] Work Phone: ) 222 Basophils/100 WBC (Bld) 0.7 % 0 - 2 % [facility] Work Phone: 222 Eosinophils (Bld) [#/Vol] 0.3 10*3/uL 0 - 0.5 10*3/uL [facility] Work Phone: ) 222 Eosinophils/100 WBC (Bld) 3.2 % 1 - 6 % [facility] Work Phone: [phone] Erythrocyte distribution width (RBC) [Ratio] 14.7 % High 11.5 - 14.5 % [facility] Work Phone: 1() 222 Granulocytes/100 WBC (Bld) 54.6 % 40 - 80 % [facility] Work [facility]: ) 222 Hematocrit (Bld) [Volume fraction] 40.5 % 35 - 47 % [facility] Work Phone: [phone]) 222 Hemoglobin (Bld) [Mass/Vol] 13.4 g/dL 11.7 - 16 g/dL [facility] Work Phone: [phone] Interpretation and review of laboratory results Abnormal [facility] Work Phone: 1() 222 Lymphocytes (Bld) [#/Vol] 3.2 10*3/uL 1 - 4.3 10*3/uL [facility] Work Phone: 1() 222 Lymphocytes/100 WBC (Bld) 32.4 % 20 - 40 % [facility] Work Phone: ) 222 MCH (RBC) [Entitic mass] 29.7 pg 26 - 34 pg [facility] Work Phone: [phone] 222 MCHC (RBC) [Mass/Vol] 33.2 % 32 - 36 % [facility] Work Phone: () 222 MCV (RBC) [Entitic vol] 89.5 fL 79 - 98 fL [facility] Work Phone: [phone] 222 Monocytes (Bld) [#/Vol] 0.9 10*3/uL High 0 - 0.8 10*3/uL [facility] Work Phone: 1() 222 Monocytes/100 WBC (Bld) 9.1 % 2 - 10 % [facility] Work Phone: [phone] Platelet mean volume (Bld) [Entitic vol] 9.0 fL 7.4 - 10.4 fL [facility] Work Phone: 1() 222 Platelets (Bld) [#/Vol] 295 10*3/uL 140 - 440 10*3/uL [facility] Work Phone: [phone] RBC (Bld) [#/Vol] 4.53 10*6/uL 3.8 - 5.2 10*6/uL [facility] Work Phone: [phone] WBC (Bld) [#/Vol] 9.9 10*3/uL 3.6 - 10.7 10*3/uL [facility] Work Phone: [phone] Test Performed by [employer] [facility], [address] [place], [place] [address] [facility] Work Phone: [phone] Lactic Acid, Plasmaon 2020 Lactate [Moles/Vol] 1.4 mmol/L 0.7 - 2 mmol/L [facility] Work Phone: [phone] Otheron 11-02-2020 Test Performed by [employer] [facility], [address] [place], [place] [address] [facility] Work Phone: [phone] Test Performed by [employer] [facility], [address] [place], [place] [address] [facility] Work Phone: [phone] Protime-INRon 11-02-2020 INR Coag (PPP) [Relative time] {INR} [facility] Work Phone: [phone] Comment on above: Recommended Anticoag ulant [...] - 12 s [facility] Work Phone: [phone] Comment on above: . Test Performed by [employer], [address] [place], [place] [address] [facility] Work Phone: Troponin x1on 11-02-2020 Troponin I.cardiac [Mass/Vol] ng/mL 0 - 0.034 ng/mL [facility] Work Phone: Comment on above: . Culture, Urineon 03-08-2020 Bacteria identified Cx Nom (U) No growth (<1,000 CFU/ml). [facility] [place], [place] Test Performed by [facility], [address] [place] [address] [place], [place] CBCon 03-07-2020 Erythrocyte distribution width (RBC) [Ratio] 15.4 % High 11.5 - 14.5 % [place] Hematocrit (Bld) [Volume fraction] 38.1 % 35 - 47 % [place] Hemoglobin (Bld) [Mass/Vol] 12.7 g/dL 11.7 - 16 g/dL [place] Interpretation and review of laboratory results Abnormal [place] MCH (RBC) [Entitic mass] 29.9 pg 26 - 34 pg [place] MCHC (RBC) [Mass/Vol] 33.4 % 32 - 36 % [place], [place] MCV (RBC) [Entitic vol] 89.5 fL 79 - 98 fL [place] Platelet mean volume (Bld) [Entitic vol] 8.7 fL 7.4 - 10.4 fL [place] Platelets (Bld) [#/Vol] 248 10*3/uL 140 - 440 10*3/uL [place] RBC (Bld) [#/Vol] 4.26 10*6/uL 3.8 - 5.2 10*6/uL [place] WBC (Bld) [#/Vol] 6.2 10*3/uL 3.6 - 10.7 10*3/uL [place] Test Performed by [facility], [address], [place], [place] [address] [place] Comprehensive Metabolic Pane l w/ Reflex to MGon 03-07-2020 Albumin [Mass/Vol] 3.5 g/dL 3.5 - 5 g/dL [place] ALP [Catalytic activity/Vol] 125 U/L 38 - 126 U/L [place] ALT [Catalytic activity/Vol] 31 U/L 0 - 34 U/L [place] Comment on above: The ALT test is perf ormed by an updated assay method. Please note that the reference intervals have been changed and are now sex specific. Anion gap [Moles/Vol] 10 mmol/L [place], [place] AST [Catalytic activity/Vol] 45 U/L 15 - 46 U/L [place] Bilirubin Ql (U) 0.6 mg/dL 0.2 - 1.3 mg/dL [place] Calcium [Mass/Vol] 8.3 mg/dL Low 8.4 - 10. 4 mg/dL [place] Chloride [Moles/Vol] 107 mmol/L 98 - 10 7 mmol/L [place] CO2 [Moles/Vol] 27 mmol/L 22 - 30 mmol/L [place] Creatinine [Mass/Vol] 0.76 mg/dL 0.52 - 1.25 mg/dL [place] EGFR IF NonAfrican Maldivian 75.7 mL/min >60 [place] Comment on above: KDIGO guidelines pro [...] MDRD (S/P/Bld) [Vol rate/Area] 87.8 mL/min/{1.73_m2} >60 [place] Glucose [Mass/Vol] 101 mg/dL High 70 - 100 mg/dL [place] Potassium [Moles/Vol] 3.7 mmol/L 3.5 - 5.1 mmol/L [place] Protein [Mass/Vol] 6.6 g/dL 6.3 - 8.2 g/dL [place] Sodium [Moles/Vol] 144 mmol/L 135 - 145 mmol/L [place] Urea nitrogen [Mass/Vol] 15 mg/dL 7 - 20 mg/dL [place] ECHO Complete 2D W Doppler W Coloron 03-07-2020 TRANSTHORACIC ECHOCARDIOGRAM PATIENT: Chay Teague STUDY DATE: 03/07/2020 : 1945 AGE: 74 HT/WT: 160 cm (63 90.7 kg in) (199.6 lb) GENDER: F BP: 160 / 101 LOCATION: [facility] PATIENT Observation [facility] STATUS: *ORDERING PHYSICIAN: * Delia Chavez *READING PHYSICIAN: * John Whitlock MD, *BRAIDED BAND ASSEMBLER: * Skye Garcia [facility] INDICATIONS: TIA CONCLUSIONS SUMMARY: 1. Left [...] range. Electronically signed by John Whitlock MD, [facility] 03/07/2020 12:07 Prior Signatures: [facility] [place], [facility] Incoming Cardiology Results From [facility] - 03/07/2020 12:08 PM EDT TRANSTHORACIC ECHOCARDIOGRAM PATIENT: Chay Teague STUDY DATE: 03/07/2020 : 1945 AGE: 74 HT/WT: 160 cm (63 90.7 kg in) (199.6 lb) GENDER: F BP: 160 / 101 LOCATION: [facility] PATIENT Observation [facility] STATUS: *ORDERING PHYSICIAN: * Delia Chavez *READING PHYSICIAN: * John Whitlock MD, *BRAIDED BAND ASSEMBLER: * Skye Garcia [facility] INDICATIONS: TIA CONCLUSIONS SUMMARY: 1. Left [...] range. 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1945 Requested By: EMILY REESE Order Number: [id number] Reading : Niels Reese Measurements Intervals [place] Rate: 95 P: 70 DE: 176 QRS: -36 QRSD: 120 T: 45 QT: 388 QTc: 488 Interpretive Statements SINUS RHYTHM PROBABLE LEFT ATRIAL ABNORMALITY IVCD, CONSIDER ATYPICAL RBBB Compared to ECG 03/06/2017 15:56:33 No significant changes Electronically Signed On 03-07-2020 16:39:39 EDT by Niels Reese [place] [facility], [facility] Incoming Cardiology Results From [facility] - 03/07/2020 4:40 PM EDT [facility] Test Date: 2020-03-06 Pat Name: Chay Teague Department: Room: 453 Gender: F 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 Secretary: 2014 : 1945 Requested By: EMILY REESE Order Number: [id number] Reading GREG Reese Measurements Intervals [place] Rate: 95 P: 70 DE: 176 QRS: -36 QRSD: 120 T: 45 QT: 388 QTc: 488 Interpretive Statements SINUS RHYTHM PROBABLE LEFT ATRIAL ABNORMALITY IVCD, CONSIDER ATYPICAL RBBB Compared to ECG 03/06/2017 15:56:33 No significant changes Electronically Signed On 03-07-2020 16:39:39 EDT by Niels Reese [place], [place] FOLATEon 03-07-2020 Folate 18.4 ng/mL 2.8 - 20 ng/mL [place] Hemoglobin A1con 03-07-2020 eAG 111 mg/dL [place] HbA1c (Bld) [Mass fraction] 5.5 % 4 - 5.7 % [place] Comment on above: --HgbA1C levels may not be accurate in patients who have renal disease, received recent blood transfusions, are anemic, or who have dyshemoglobinemia. Test Performed by [facility], [address], [place], [place] [address] [place] Lipid panel - fastingon 02-20 Cholesterol [Mass/Vol] 193 mg/dL <200 [place] Cholesterol in HDL [Mass/Vol] 56 mg/dL 40 - 60 mg/dL [place] Cholesterol in LDL [Mass/Vol] 107 mg/dL Abnormal <100 [place] Cholesterol.total/Chol esterol in HDL [Mass ratio] 3 {ratio} [place] Comment on above: Ref Range: < 3 Low Risk for CHD 3-6 Mod Risk for CHD > 6 High Risk for CHD Triglyceride [Mass/Vol] 148 mg/dL <150 [place] MRA head without contrast (R [facility]IEW IMAGING OBTAIN IN THE LAST 2 yrs, to determine indication )on 03-07-2020 Patient Name: CHAY TEAGUE ---MRI--- Exam Date/Time 03/07/2020 11:13:52 EDT Exam MRA Head w/o Contrast Ordering Physician DELIA PIÑA Accession Number [id number] CPT4 Codes 52581 () Reason For Exam acute confusion Report [...] NICHOLAS Transcribed Date and Time: 03/07/2020 12:14 [place], [facility] In[facility] Results From [facility] - 03/07/2020 12:14 PM EDT Patient Name: CHAY TEAGUE ---MRI--- Exam Date/Time 03/07/2020 11:13:52 EDT Exam MRA Head w/o Contrast Ordering Physician DELIA PIÑA Accession Number [id number] CPT4 Codes 37203 () Reason For Exam acute confusion Report [...] NICHOLAS Transcribed Date and Time: 03/07/2020 12:14 [place] MRI brain with and without c ontrast (REVIEW IMAGING RECORDS IN THE LAST 2 YRS to determine INDICATION prior to oder )on 03-07-2020 Jt, [facility] Results From [facility] - 03/07/2020 12:14 PM EDT Patient Name: CHAY TEAGUE ---MRI--- Exam Date/Time 03/07/2020 11:13:30 EDT Exam MRI Brain w/ + w/o Contrast Ordering Physician DELIA PIÑA Accession Number [id number] CPT4 Codes 86285 () Reason For Exam acute confusion Report [...] NICHOLAS Transcribed Date and Time: 03/07/2020 12:14 [place] Patient Name: CHAY TEAGUE ---MRI--- Exam Date/Time 03/07/2020 11:13:30 EDT Exam MRI Brain w/ + w/o Contrast Ordering Physician DELIA PIÑA Accession Number [id number] CPT4 Codes 73867 () Reason For Exam acute confusion Report [...] NICHOLAS Transcribed Date and Time: 03/07/2020 12:14 [place] Otheron 03-07-2020 Test Performed by [facility], [address] Interpretation and review of laboratory results Abnormal [place] Test Performed by [facility], [address] [place], [address] TSH without Reflexon 020 TSH Qn 2.668 u[IU]/mL 0.465 - 4.68 u[IU]/mL [place] Test Performed by [facility], [address] [place], [address] Troponinon 03-07-2020 Troponin I.cardiac [Mass/Vol] 0.013 ng/mL 0 - 0.034 ng/mL [place] Comment on above: . Test Performed by [facility], [address] Vitamin B12on 03-07-2020 Cobalamin (Vitamin B12) [Mass/Vol] 343 pg/mL 239 - 931 pg/mL [place] Add On Lab Teston 03-06-2020 Sodium [Moles/Vol] Accepted [place] Comment on above: Specimen available & acceptable for analysis. Test Performed by [facility], [address] , [place], [place] [address] [place] Ammoniaon 03-06-2020 Ammonia (P) [Mass/Vol] 13 umol/L 9 - 3 0 umol/L [place] Test Performed by [facility], [address], [place], [place] [address] [place] Brain Natriuretic Peptideon 03-06-2020 Natriuretic peptide B (Bld) [Mass/Vol] 65 pg/mL 0 - 450 pg/mL [place] CBC Auto Differentialon 02-20 Absolute Baso # 0.1 10*3/uL 0 - 0.2 10*3/uL [place] Absolute Neut # 4.8 10*3/uL 1.8 - 7 10*3/uL [place] Basophils/100 WBC (Bld) 0.8 % 0 - 2 % [place] Eosinophils (Bld) [#/Vol] 0.3 10*3/uL 0 - 0.5 10*3/uL [place] Eosinophils/100 WBC (Bld) 3.7 % 1 - 6 % [place] Erythrocyte distribution width (RBC) [Ratio] 15.3 % High 11.5 - 14.5 % [place] Granulocytes/100 WBC (Bld) 58.5 % 40 - 80 % [place] Hematocrit (Bld) [Volume fraction] 38.6 % 35 - 47 % [place] Hemoglobin (Bld) [Mass/Vol] 13.3 g/dL 11.7 - 16 g/dL [place] Interpretation and review of laboratory results Abnormal [place] Lymphocytes (Bld) [#/Vol] 2.2 10*3/uL 1 - 4.3 10*3/uL [place] Lymphocytes/100 WBC (Bld) 27.0 % 20 - 40 % [place] MCH (RBC) [Entitic mass] 30.2 pg 26 - 34 pg [place] MCHC (RBC) [Mass/Vol] 34.5 % 32 - 36 % [place] MCV (RBC) [Entitic vol] 87.4 fL 79 - 98 fL [place] Monocytes (Bld) [#/Vol] 0.8 10*3/uL 0 - 0.8 10*3/uL [place] Monocytes/100 WBC (Bld) 10.0 % 2 - 10 % [place] Platelet mean volume (Bld) [Entitic vol] 9.1 fL 7.4 - 10.4 fL [place] Platelets (Bld) [#/Vol] 302 10*3/uL 140 - 440 10*3/uL [place] RBC (Bld) [#/Vol] 4.42 10*6/uL 3.8 - 5.2 10*6/uL [place] WBC (Bld) [#/Vol] 8.2 10*3/uL 3.6 - 10.7 10*3/uL [place] Test Performed by [facility], [address] [place] [address]. , [address] HEAD WO CONTRASTon 2019 Patient Name: CHAY TEAGUE ---CT--- Exam Date/Time 03/06/2020 13:04:[address] Head or Brain w/o Contrast Ordering Physician MD REESE GREGORY M Accession Number [id number] CPT4 Codes 79209 () Reason For Exam Altered mental status [...] JASON Transcribed Date and Time: 03/06/2020 1:13 [place], [facility] Results From [facility] - 03/06/2020 1:13 PM EDT Patient Name: CHAY TEAGUE ---CT--- Exam Date/Time 03/06/2020 13:04:[address] Head or Brain w/o Contrast Ordering Physician MD REESE GREGORY Krystal Accession Number [id number] CPT4 Codes 89623 () Reason For Exam Altered mental status [...] JASON Transcribed Date and Time: 03/06/2020 1:13 [place] Comprehensive Metabolic Pane skylar 03-06-2020 Albumin [Mass/Vol] 4.0 g/dL 3.5 - 5 g/dL [place] ALP [Catalytic activity/Vol] 135 U/L High 38 - 126 U/L [place] ALT [Catalytic activity/Vol] 27 U/L 0 - 34 U/L [place] Comment on above: The ALT test is perf ormed by an updated assay method. Please note that the reference intervals have been changed and are now sex specific. Anion gap [Moles/Vol] 8 mmol/L [place] AST [Catalytic activity/Vol] 43 U/L 15 - 46 U/L [place] Bilirubin Ql (U) 0.7 mg/dL 0.2 - 1.3 mg/dL [place] Calcium [Mass/Vol] 9.1 mg/dL 8.4 - 10. 4 mg/dL [place] Chloride [Moles/Vol] 103 mmol/L 98 - 10 7 mmol/L [place] CO2 [Moles/Vol] 29 mmol/L 22 - 30 mmol/L [place] Creatinine [Mass/Vol] 0.83 mg/dL 0.52 - 1.25 mg/dL [place] EGFR IF NonAfrican Maldivian 68.1 mL/min >60 [place] Comment on above: KDIGO guidelines pro [...] MDRD (S/P/Bld) [Vol rate/Area] 78.9 mL/min/{1.73_m2} >60 [place] Glucose [Mass/Vol] 116 mg/dL High 70 - 100 mg/dL [place] Interpretation and review of laboratory results Abnormal [place] Potassium [Moles/Vol] 3.1 mmol/L Low 3.5 - 5.1 mmol/L [place] Protein [Mass/Vol] 7.6 g/dL 6.3 - 8.2 g/dL [place] Sodium [Moles/Vol] 140 mmol/L 135 - 145 mmol/L [place] Urea nitrogen [Mass/Vol] 22 mg/dL High 7 - 20 mg/dL [place] Lactic Acid, Plasmaon 2019 Lactate [Moles/Vol] 1.4 mmol/L 0.7 - 2 mmol/L [place] Otheron 03-06-2020 Test Performed by [facility], [address] , [address] Test Performed by [facility], [address] , [place], [place] [id number] [place] [address] Troponinon 03-06-2020 Troponin I.cardiac [Mass/Vol] ng/mL 0 - 0.034 ng/mL [place] Comment on above: . Test Performed by [facility], [address], [place], [place] [id number] [place] [address] Troponin I.cardiac [Mass/Vol] ng/mL 0 - 0.034 ng/mL [place] Comment on above: . Urinalysison 03-06-2020 Appearance (U) Clear [place] Comment on above: . Bacteria, UA Few (1-5) Abnormal Negative /[HPF] [place] Comment on above: . Bilirubin Urine Negative Negative mg/dL [place] Comment on above: . Color (U) LIGHT YELLOW Lt. Yellow NA [place] Comment on above: . Glucose, Ur Normal Normal (<70) mg/dL [place] Comment on above: . Interpretation and review of laboratory results Abnormal [place] Ketones Ql (U) Negative Negative mg/dL [place] Comment on above: . LEUKOCYTES, UA 250 Abnormal Negative Jennifer/uL [place] Comment on above: . Nitrite, Urine Negative Negative NA [place] Comment on above: . Non-Squamous Epithelial 0-2 Abnormal Negative /[HPF] [place] Comment on above: . Occult Blood,Urine 0.1 mg/dL Abnormal Negative [place] Comment on above: . pH (U) 5.5 [pH] [place] Comment on above: . Protein (U) [Mass/Vol] Negative Negat alli mg/dL [place] Comment on above: . RBC (U) [#/Vol] Negative 0 - 2 /[HPF] [place] Comment on above: . Specific [place], Urine 1.017 [place] Comment on above: . Squam Epithel, UA 0-2 3 - 5 /[HPF] [place] Comment on above: . Urobilinogen, Urine Normal Normal (0-1) mg/dL [place] Comment on above: . Volume 8-12 ml [place] Comment on above: . WBC, UA 3-5 0 - 5 /[HPF] [place] Comment on above: . Test Performed by [facility], [address] [place] [address] [place] XR ABDOMEN (KUB) (SINGLE AP VIEW)on 03-06-2020 Patient Name: CHAY TEAGUE ---Diagnostic Radiology--- Exam Date/Time 03/06/2020 21:54:29 EDT Exam CR Abdomen AP Ordering Physician MD LEBRON PRAMOD Accession Number [id number] CPT4 Codes 67592 () Reason For Exam abdominal pain Report EXAM: CR Abdomen AP INDICATION: Abdominal pain; left upper quadrant pain; history of gastric fundoplication VIEWS: AP COMPARISON: 10/21/2019 pelvis TIME: 21:27 FINDINGS AND IMPRESSION: The bowel gas pattern is nonspecific with moderate fecal retention. The hemidiaphragms are excluded from [id number]. Report Dictated on --- Final --- Dictating Physician: MD MCDERMOTT JENNIFER R Signed Date and Time: 03/06/2020 9:59 pm Signed by: MD MCDERMOTT JENNIFER R Transcribed Date and Time: 03/06/2020 10:01 [facility], [place] Jt, [facility] Incoming [facility] Results From [facility] - 03/06/2020 10:01 PM EDT Patient Name: CHAY TEAGUE ---Diagnostic Radiology--- Exam Date/Time 03/06/2020 21:54:29 EDT Exam CR Abdomen AP Ordering Physician MD LEBRON PRAMOD Accession Number [id number] CPT4 Codes 19159 () Reason For Exam abdominal pain Report EXAM: CR Abdomen AP INDICATION: Abdominal pain; left upper quadrant pain; history of gastric fundoplication VIEWS: AP COMPARISON: 10/21/2019 pelvis TIME: 21:27 FINDINGS AND IMPRESSION: The bowel gas pattern is nonspecific with moderate fecal retention. The hemidiaphragms are excluded from [id number]. Report Dictated on --- Final --- Dictating Physician: MD MCDERMOTT JENNIFER R Signed Date and Time: 03/06/2020 9:59 pm Signed by: MD MCDERMOTT JENNIFER R Transcribed Date and Time: 03/06/2020 10:01 [facility], [employer] XR CHEST PORTABLEon 03-06-20 Jt, [facility] In[facility] Results From [facility] - 03/06/2020 1:18 PM EDT Patient Name: CHAY TEAGUE ---Diagnostic Radiology--- Exam Date/Time 03/06/2020 12:50:01 EDT Exam CR Chest Portable Ordering Physician [facility] Accession Number [id number] CPT4 Codes 70443 () Reason For Exam Shortness of breath [...] JASON Transcribed Date and Time: 03/06/2020 1:18 [place] Patient Name: CHAY TEAGUE ---Diagnostic Radiology--- Exam Date/Time 03/06/2020 12:50:01 EDT Exam CR Chest Portable Ordering Physician MD REESE GREGORY M Accession Number [id number] CPT4 Codes 85355 () Reason For Exam Shortness of breath [...] JASON Transcribed Date and Time: 03/06/2020 1:18 [place] CBC Auto DifferentialOrdered By: Cynthia Uribe on 08-31-2019 Absolute Baso # 0.1 10*3/uL 0 - 0.2 10*3/uL [facility] Work Phone: Absolute Neut # 5.3 10*3/uL 1.8 - 7 10*3/uL [facility] Work Phone: Basophils/100 WBC (Bld) 0.7 % 0 - 2 % [facility] Work Phone: Eosinophils (Bld) [#/Vol] 0.3 10*3/uL 0 - 0.5 10*3/uL [facility] Work Phone: [phone] Eosinophils/100 WBC (Bld) 3.0 % 1 - 6 % [facility] Work Phone: Erythrocyte distribution width (RBC) [Ratio] 14.7 % High 11.5 - 14.5 % [facility] Work Phone: [phone] Granulocytes/100 WBC (Bld) 59.4 % 40 - 80 % [facility] Work Phone: [phone] Hematocrit (Bld) [Volume fraction] 42.8 % 35 - 47 % [facility] Work Phone: [phone] Hemoglobin (Bld) [Mass/Vol] 14.4 g/dL 11.7 - 16 g/dL [employer] Work Phone: [phone] Interpretation and review of laboratory results Abnormal [employer] Work Phone: [phone] Lymphocytes (Bld) [#/Vol] 2.6 10*3/uL 1 - 4.3 10*3/uL [employer] Work Phone: [phone] Lymphocytes/100 WBC (Bld) 28.6 % 20 - 40 % [employer] Work Phone: [phone] MCH (RBC) [Entitic mass] 30.7 pg 26 - 34 pg [employer] Work Phone: [phone] MCHC 33.5 % 32 - 36 % [employer] Work Phone: [phone] MCV (RBC) [Entitic vol] 91.6 fL 79 - 98 fL [employer] Work Phone: [phone] Monocytes (Bld) [#/Vol] 0.7 10*3/uL 0 - 0.8 10*3/uL [employer] Work Phone: [phone] Monocytes/100 WBC (Bld) 8.3 % 2 - 10 % [employer] Work Phone: [phone] Platelet mean volume (Bld) [Entitic vol] 9.0 fL 7.4 - 10.4 fL [employer] Work Phone: [phone] Platelets (Bld) [#/Vol] 273 10*3/uL 140 - 440 10*3/uL [employer] Work Phone: [phone] RBC (Bld) [#/Vol] 4.67 10*6/uL 3.8 - 5.2 10*6/uL [employer] Work Phone: [phone] WBC (Bld) [#/Vol] 9.0 10*3/uL 3.6 - 10.7 10*3/uL [employer] Work Phone: [phone] Test Performed by [facility], [address] , [place], [place] [address] [facility] Work Phone: [phone] Comprehensive Metabolic Pane lOrdered By: Cynthia Uribe on 08-31-2019 Albumin [Mass/Vol] 4.0 g/dL 3.5 - 5 g/dL [facility] Work Phone: [phone] ALP [Catalytic activity/Vol] 134 [...] - 10. 4 mg/dL [facility] Work Phone: ) [phone] Chloride [Moles/Vol] 102 mmol/L 98 - 10 7 mmol/L [facility] Work [facility]: [phone] CO2 [Moles/Vol] 29 mmol/L 22 - 30 mmol/L [facility] Work Phone: [phone] Creatinine [Mass/Vol] 1.17 mg/dL 0.52 - 1.25 mg/dL [facility] Work Phone: [phone] EGFR IF NonAfrican Maldivian 44.9 mL/min >60 [facility] Work Phone: [phone] Comment on above: Source- MDRD equatio n with creatinine calibration to IDMS(NKDEP) eGFR not recommended for drug dose adjustment GFR/1.73 sq M.predicted among blacks MDRD (S/P/Bld) [Vol rate/Area] 54.5 mL/min/{1.73_m2} >60 [facility] Work Phone: ) [phone] Glucose [Mass/Vol] 109 mg/dL High 70 - 100 mg/dL [facility] Work Phone: [phone] Interpretation and review of laboratory results Abnormal [facility] Work Phone: 1 Potassium [Moles/Vol] 3.7 mmol/L 3.5 - 5.1 mmol/L [facility] Work Phone: [phone] Protein [Mass/Vol] 7.4 g/dL 6.3 - 8.2 g/dL [facility] Work Phone: [phone] Sodium [Moles/Vol] 142 mmol/L 135 - 145 mmol/L [facility] Work Phone: [phone] Urea nitrogen [Mass/Vol] 29 mg/dL High 7 - 20 mg/dL [facility] Work Phone: 1 Test Performed by [facility], [address] [place] [address] [facility] Work Phone: [phone] TSH without ReflexOrdered By : Cynthia Uribe on 08-31-2019 TSH 2.584 u[IU]/mL 0.465 - 4.68 u[IU]/mL [facility] Work Phone: 1 Test Performed by [facility], [address] [place], [place] [address] [facility] Work Phone: [phone] Vitamin D 25 HydroxyOrdered By: Cynthia Uribe on 08-31-2019 Interpretation and review of laboratory results Abnormal [facility] Work Phone: 1 Vit D, 25-Hydroxy 26 ng/mL Low 30 - 100 ng/mL [facility] Work Phone: [phone] Comment on above: Therapy is based on measurement of Total 25-OHD with the following classification levels: Less than 20 ng/mL: Indicative of Vit D deficiency 20-30 ng/mL: Suggests Vit D insufficiency Optimal: Greater than or equal to 30 ng/mL Test performed by [employer], measuring Total Vitamin D, not individual fractions. Test Performed by [facility], [address], [place], [place] [address] [facility] Work Phone: [phone] TSH without Reflexon 08-27-2 019 TSH Qn 3.036 u[IU]/mL 0.465 - 4.68 u[IU]/mL [facility], [place] Test Performed by [facility], [address] , [place], [place] [address] [facility], [place] MG Breast Tomosynthesis Diag chino Righton 03-09-2019 MG Breast Tomosynthesis Diagnostic Right Patient Name: CHAY TEAGUE Mammography Exam Date/Time 03/09/2019 07:49:43 EDT Exam MG Breast Tomosynthesis Uni Ordering Physician MD JOJO, CYNTHIA Accession Number [id number] CPT4 Codes 85068 (MG Breast Tomosynthesis Right), 10892 (MG MAMMO 2D DIAGNOSTIC) Reason For Exam [...] MG breast tomosynthesis bl scr performed at [facility]. August 18, 2017, bilateral MG breast tomosynthesis bl scr performed at [facility]. November 22, 2010, bilateral mammogram. TISSUE [...] images: BB's = Nipples; skin lesions Open [place] = Palpable Line = Scar US BREAST LIMITED RIGHT: MARCH 09, 2019 - Standard views. 2D digital mammography and tomosynthesis imaging were performed and reviewed with CAD. ASSESSMENT: Category 3 Probably benign (Overall) RECOMMENDATION: Ultrasound of the right breast in 6 months. . Report Dictated on Final Signed Date and Time: 03/09/2019 8:57 am Signed by: MD TAN KERISTEN L [facility] US Breast Limited Righton US Breast Limited Right Patient Name: CHAY TEAGUE Ultrasound Exam Date/Time 03/09/2019 08:41:27 EDT Exam US Breast Limited Right Ordering Physician MD URIBE DIANA Accession Number [id number] CPT4 Codes 90195 () Reason For Exam Other abnormal and [...] MG breast tomosynthesis bl scr performed at [facility]. August 18, 2017, bilateral MG breast tomosynthesis bl scr performed at [facility]. November 22, 2010, bilateral mammogram. TISSUE [...] images: BB's = Nipples; skin lesions Open [place] = Palpable Line = Scar US BREAST LIMITED RIGHT: MARCH 09, 2019 - Standard views. 2D digital mammography and tomosynthesis imaging were performed and reviewed with CAD. ASSESSMENT: Category 3 Probably benign (Overall) RECOMMENDATION: Ultrasound of the right breast in 6 months. . Report Dictated on Final Signed Date and Time: 03/09/2019 8:57 am Signed by: MD TAN KERISTEN L Normal [facility] Basic Metabolic Panelon 12-1 Anion gap molar conc 7 Normal [facility] Comment on above: Performed By: #### H EMDF, BMP3 #### [facility] [address] [place], [place] Calcium mass conc 8.8 mg/dL Normal 8.4-10.4 [facility] Comment on above: Performed By: #### H VILLA BMP3 #### [facility] [address] [place], [place] CO2 molar conc 23 mmol/L Normal 22-30 [facility] Comment on above: Performed By: #### H VILLA BMP3 #### [place] [address] [address] [place], [place] Creatinine mass conc 0.85 mg/dL Normal 0.52-1.25 [facility] Comment on above: Performed By: #### H VILLA BMP3 #### [place] [address] [address] [place], [place] GFR/1.73 sq M predicted among blacks MDRD vol rate/area (S/P/Bld) mL/min/{1.73_m2} Normal >60 [facility] Comment on above: Performed By: #### H VILLA BMP3 #### [place] [address] [address] [place], [place] GFR/1.73 sq M predicted among non-blacks MDRD vol rate/area (S/P/Bld) mL/min/{1.73_m2} Normal >60 [facility] Comment on above: Result Comment: Sour ce- MDRD equation with creatinine calibration to IDMS(NKDEP) eGFR not recommended for drug dose adjustment Performed By: #### H VILLA BMP3 #### [facility] [address] [place], [place] Glucose mass conc 100 mg/dL Normal 70-100 [facility] Comment on above: Performed By: #### H VILLA BMP3 #### [place] [address] [address] [place], [place] Urea nitrogen mass conc 14 mg/dL Normal 7-20 [facility] Comment on above: Performed By: #### H VILLA BMP3 #### [place] [address] [address] [place], [place] Chloride molar conc 109 mmol/L High 98-107 [facility] Comment on above: Performed By: #### H EMDF, BMP3 #### [facility] [address] [place] [address] Potassium molar conc 3.7 mmol/L Normal 3.5-5.1 [facility] Comment on above: Performed By: #### H EMDF, BMP3 #### [facility] [address] [place] [address] Sodium molar conc 140 mmol/L Normal 135-145 [facility] Comment on above: Result Comment: NOTE : New Sodium Reference Range effective 2018 @ 10:00 Performed By: #### H EMDF, BMP3 #### [facility] [address] [place] [address] CR Chest Portableon 09-08-20 18 CR Chest Portable Patient Name: CHAY TEAGUE Diagnostic Radiology Exam Date/Time 09/08/2018 16:21:12 EST Exam CR Chest Portable Ordering Physician MD ANTONI, TRA Knutson Accession Number [id number] CPT4 Codes 91084 () Reason For Exam fall Report PORTABLE [...] Transcribed Date and Time: 09/08/2018 4:57 Normal [facility] CR Wrist Complete 3 Views Le fton 09-08-2018 CR Wrist Complete 3 Views Left Patient Name: CHAY TEAGUE Diagnostic Radiology Exam Date/Time 09/08/2018 16:21:12 EST Exam CR Wrist Complete 3 Views Left Ordering Physician MD CORRALES DAVID C. Accession Number [id number] CPT4 Codes 43731 () Reason For Exam fall, open fracture [...] Transcribed Date and Time: 09/08/2018 4:[address] [facility] [address] Head or Brain w/o Contras ton 09-08-2018 CT Head or Brain w/o Contrast Patient Name: CHAY TEAGUE CT Exam Date/Time 09/08/2018 16:04:[address] Head or Brain w/o Contrast Ordering Physician MD CORRALES DAVID C. Accession Number [id number] CPT4 Codes 63920 () Reason For Exam fall, on anticoagulation [...] Transcribed Date and Time: 09/08/2018 4:[address] [facility] [address] Spine Cervical w/o Contra ston 09-08-2018 CT Spine Cervical w/o Contrast Patient Name: CHAY TEAGUE CT Exam Date/Time 09/08/2018 16:05:[address] Spine Cervical w/o Contrast Ordering Physician MD ANTONI, TAR Knutson Accession Number [id number] CPT4 Codes 87528 () Reason For Exam C-SPINE TRAUMA, NEXUS/CCR [...] Transcribed Date and Time: 09/08/2018 4:43 Normal [facility] ED Provider Noteon 8 Protein mass [...] capsule by mouth daily VITAMIN D (ERGOCALCIFEROL) 47224 UNITS CAPSULE Take 1 capsule by mouth [...] arranged. Patient's daughter 100 be seen by [facility] in [place]. We will give her referral to Dr. [...] Emergency Medicine Provider Tra Corrales MD 09/08/18 0930 Normal [facility] Hemogram w/ [employer]od[employer] 09-08 Abs Baso Cnt 0.1 10*3/uL Normal 0.0-0.2 [facility] Comment on above: Performed By: #### H EMDF, BMP3 #### [facility] [address] [place] [address] Abs Neutrophile Cnt 5.8 10*3/uL Normal 1.8-7.0 [facility] Comment on above: Performed By: #### H EMDF, BMP3 #### [place] [address] [place] [address] Basophils/100 WBC (Bld) 0.7 % Normal 0.0-2.0 [facility] Comment on above: Performed By: #### H EMDF, BMP3 #### [place] [address] [place] [address] Eosinophils #/vol (Bld) 0.2 10*3/uL Normal 0.0-0.5 [facility] Comment on above: Performed By: #### H EMDF, BMP3 #### [place] [address] [place] [address] Eosinophils/100 WBC (Bld) 2.3 % Normal 1.0-6.0 [facility] Comment on above: Performed By: #### H EMDF, BMP3 #### [place] [address] [address] [place] [address] Erythrocyte distribution width Ratio (RBC) 14.9 % High 11.5-14.5 [facility] Comment on above: Performed By: #### H EMDF, BMP3 #### [address] [address] [place] [address] Granulocytes/100 WBC (Bld) 69.6 % Normal 40.0-80.0 [facility] Comment on above: Performed By: #### H EMDF, BMP3 #### [address] [address] [place] [address] Hematocrit Volume Fraction (Bld) 41.2 % Normal 35.0-47.0 [facility] Comment on above: Performed By: #### H EMDF, BMP3 #### [address] [address] [place] [address] Hemoglobin mass conc (Bld) 13.5 g/dL Normal 11.7-16.0 [facility] Comment on above: Performed By: #### H EMDF, BMP3 #### [facility] [address] [place], [place] Lymphocytes #/vol (Bld) 1.7 10*3/uL Normal 1.0-4.3 [facility] Comment on above: Performed By: #### H EMDF, BMP3 #### [facility] [address] [place], [place] Lymphocytes/100 WBC (Bld) 20.5 % Normal 20.0-40.0 [facility] Comment on above: Performed By: #### H EMDF, BMP3 #### [facility] [address] [place], [place] MCH Entitic mass (RBC) 30.8 pg Normal 26.0-34.0 [facility] Comment on above: Performed By: #### H EMDF, BMP3 #### [facility] [address] [place], [place] MCHC mass conc (RBC) 32.9 % Normal 32.0-36.0 [facility] Comment on above: Performed By: #### H EMDF, BMP3 #### [facility] [address] [place], [place] MCV Entitic volume (RBC) 93.6 fL Normal 79.0-98.0 [facility] Comment on above: Performed By: #### H EMDF, BMP3 #### [facility] [address] [place], [place] Monocytes #/vol (Bld) 0.6 10*3/uL Normal 0.0-0.8 [facility] Comment on above: Performed By: #### H EMDF, BMP3 #### [facility] [address] [place], [place] Monocytes/100 WBC (Bld) 6.9 % Normal 2.0-10.0 [facility] Comment on above: Performed By: #### H EMDF, BMP3 #### [facility] [address] [place], [place] Platelet mean volume Entitic volume (Bld) 9.0 fL Normal 7.4-10.4 [facility] Comment on above: Performed By: #### H EMDF, BMP3 #### [facility] [address] [place] [address] Platelets #/vol (Bld) 212 10*3/uL Normal 140-440 [facility] Comment on above: Performed By: #### H EMDF, BMP3 #### [facility] [address] [place] [address] RBC #/vol (Bld) 4.40 10*6/uL Normal 3.80-5.20 [facility] Comment on above: Performed By: #### H EMDF, BMP3 #### [facility] [address] [place] [address] WBC #/vol (Bld) 8.4 10*3/uL Normal 3.6-10.7 [facility] Comment on above: Performed By: #### H EMDF, BMP3 #### [facility] [address] [place] [address] CNCOon 09-02-2017 CNCO Letter Uri damon [address] [place], [place] [address]Zhnij: [phone]: [phone]: 09/02/2017Provider: Hayley Geronimo,We have received a referral [...] you to please call our office at [phone], option 5 and we willassist you in scheduling your exam.Sincerely,Clifford Crane MD Normal [facility] Vital Signs Date Time Vital Sign [...] 11-02-2020 18:04-0500 BP Diastolic 95 mm[Hg] Jame WALTON Work Phone: 11-02-2020 18:04-0500 BP Systolic 124 [...] 08:35-0400 Pulse Oximetry 94 % Emily Reese [facility] , [place] 03-09-2020 08:26-0400 Body Temperature 97.9 [degF] Emily Reese [facility] 03-09-2020 08:26-0400 BP Diastolic 90 mm[Hg] Emily Reese [facility] , [place] 03-09-2020 08:26-0400 BP Systolic 146 mm[Hg] Emily Dennis [facility] , [place] 03-09-2020 08:26-0400 Pulse (Heart Rate) 90 /min Emily Dnenis [facility] [place], [place] 03-09-2020 08:26-0400 Respiratory Rate 18 /min Emily Dennis [facility], [place] 03-06-2020 17:21-0400 BMI (Body Mass Index) 35.43 kg/m2 Emily eDnnis [facility], [place] 03-06-2020 17:21-0400 Body weight 90.72 kg [facility] [place] Comment on above: per 08/2019 office visit 03-06-2020 17:21-0400 Height 160 cm [facility] [place] Comment on above: per 08/2019 office [...] 01-22-2020 14:28-0400 Pulse Oximetry 95 % Scott Bernsteinrio [facility] Work Phone: 01-22-2020 14:28-0400 Respiratory Rate 32 /min Scott Barbara [facility] Work Phone: Encounters Encounter Date Encounter Type Care Provider Facility Start: 08-01-2025 ambulatory Saurabh Jim Garcia ty:[facility] Start: 05-26-2025 ambulatory Saurabh Jim Garcia ty:[facility] Start: 05-09-2025 ambulatory Saurabh Jim Garcia ty:[facility] Start: 04-08-2025 ambulatory Saurabh MANJARREZ Facili ty:[facility] Start: 03-03-2025 ambulatory Saurabh MANJARREZ Facili ty:[facility] Start: 02-16-2025 ambulatory Saurabh MANJARREZ Facili ty:[facility] Start: 12-09-2024 End: 12-09-2024 ambulatory Saurabh Fernandez MD [facility] Work Phone: Start: 12-09-2024 End: 12-09-2024 Departed Referred Saurabh Fernandez [facility] Start: 12-09-2024 Registered Referred Saurabh Fernandez [facility] Start: 12-09-2024 End: 12-09-2024 ambulatory Saurabh MANJARREZ Facility:[facility] Start: 11-22-2024 End: 11-22-2024 ambulatory Saurabh Fernandez MD [facility] Work Phone: Start: 11-22-2024 End: 11-22-2024 Departed Referred Saurabh Fernandez [facility] Start: 11-22-2024 Registered Referred Saurabh Fernandez [facility] Start: 11-22-2024 End: 11-22-2024 ambulatory Saurabh MANJARREZ Facility:[facility] Start: 11-17-2024 End: 11-17-2024 ambulatory Saurabh Fernandez MD [facility] Work Phone: Start: 11-17-2024 End: 11-17-2024 Departed Referred Saurabh Fernandez [facility] Start: 11-17-2024 End: 11-17-2024 ambulatory Saurabh MANJARREZ Facility:[facility] Start: 11-10-2024 ambulatory Saurabh MANJARREZ Facili ty:[facility] Start: 11-10-2024 Registered Referred Saurabh Fernandez [facility] Start: 09-16-2024 ambulatory Saurabh MANJARREZ Facili ty:[facility] Start: 09-16-2024 Registered Referred Saurabh Fernandez [facility] Start: 08-30-2024 End: 08-30-2024 Departed Referred Saurabh Fernandez [facility] Start: 08-30-2024 End: 08-30-2024 ambulatory Saurabh MANJARREZ Facility:[facility] Start: 08-09-2024 End: 08-09-2024 ambulatory Saurabh MANJARREZ Facility:[facility] Start: 10-16-2023 End: 10-16-2023 ambulatory [facility] Work Phone: Start: 10-16-2023 End: 10-16-2023 Departed Referred [facility] Start: 09-29-2023 End: 09-29-2023 ambulatory [facility] Work Phone: Start: 09-29-2023 End: 09-29-2023 Departed Referred [facility] Start: 09-01-2023 End: 09-01-2023 ambulatory [facility] Work Phone: Start: 09-01-2023 End: 09-01-2023 Departed Referred [facility] Start: 07-24-2023 End: 07-24-2023 ambulatory [facility] Work Phone: Start: 07-24-2023 End: 07-24-2023 Departed Referred [facility] Start: 06-30-2023 End: 06-30-2023 ambulatory [facility] Work Phone: Start: 06-30-2023 End: 06-30-2023 Departed Referred [facility] Start: 05-01-2023 End: 05-01-2023 ambulatory [facility] Work Phone: Start: 05-01-2023 End: 05-01-2023 Departed Referred [facility] Start: 04-07-2023 End: 04-07-2023 ambulatory [facility] Work Phone: Start: 04-07-2023 End: 04-07-2023 Departed Referred [facility] Start: 02-06-2023 End: 02-06-2023 Departed Referred [facility] Start: 01-13-2023 End: 01-13-2023 ambulatory [facility] Work Phone: Start: 01-13-2023 End: 01-13-2023 Departed Referred [facility] Start: 11-14-2022 End: 11-14-2022 ambulatory [facility] Work Phone: Start: 11-14-2022 End: 11-14-2022 Departed Referred [facility] Start: 11-14-2022 Registered Referred [facility] Start: 10-21-2022 End: 10-21-2022 ambulatory [facility] Work Phone: Start: 10-21-2022 End: 10-21-2022 Departed Referred [facility] Start: 08-23-2022 End: 08-23-2022 ambulatory [facility] Work Phone: Start: 08-23-2022 End: 08-23-2022 Departed Referred [facility] Start: 08-23-2022 Registered Referred [facility] Start: 08-22-2022 End: 08-22-2022 ambulatory [facility] Work Phone: Start: 08-22-2022 End: 08-22-2022 Departed Referred [facility] Start: 08-22-2022 Registered Referred [facility] Start: 07-29-2022 End: 07-29-2022 ambulatory [facility] Work Phone: Start: 07-29-2022 End: 07-29-2022 Departed Referred [facility] Start: 07-29-2022 Registered Referred [facility] Start: 07-24-2022 End: 07-24-2022 ambulatory [facility] Work Phone: Start: 07-24-2022 End: 07-24-2022 Departed Referred [facility] Start: 06-06-2022 End: 06-24-2022 Evaluation and management of inpatient JOHN MCDONALDLAMONT Facility:[facility] Start: 06-05-2022 End: 06-06-2022 Emergency department patient visit CYNTHIA URIBE Facility:[facility] Start: 06-05-[address] [facility] Mundo Bailey DIRECTOR SYSTEMS Work Phone: [facility] Start: 06-05-2022 ambulatory Mundo conley DIRECTOR SYSTEMS Work Phone: Behavioral Health Intake Comment on above: Psychiatric Problem Start: 08-30-2021 Chart Update Referring Prov ider [facility] Work Phone: Start: 08-29-2021 Office outpatient vi sit 15 minutes Referring Provider Unknown [facility] Work Phone: Start: 05-10-2021 End: 05-10-2021 Subsequent hospital visit by physician Cynthia Uribe MD Work Phone: [facility] Comment on above: Vitamin D deficiency ; Recurrent depression (HCC); Essential hypertension; Other specified hypothyroidism; Mild intermittent asthma without complication Start: 11-02-2020 End: 11-02-2020 Emergency department patient visit Jame Farfan Nasir Work Phone: [facility] Comment on above: Altered mental statu s, unspecified altered mental status type (Primary Dx); Shortness of breath; Lower extremity edema; Abdominal pain, right lower quadrant; Gallstones Start: 03-06-2020 End: 03-09-2020 Evaluation and management of inpatient Emily Reese Work Phone: [facility] Comment on above: Delirium (Primary [...] Pelvi s W contrast IV Jame A [employer] Work Phone: Start: 11-02-2020 Ct angiography chest w/contrast/noncontrast Jame A [employer] Work Phone: Start: 11-02-2020 Ct head/brain w/o co ntrast material Jame A [employer] Work Phone: Start: 11-02-2020 Assay of lactate Jame A [employer] Work Phone: Start: 11-02-2020 Assay of troponin quantitative Jame A [employer] Work Phone: Start: 11-02-2020 Blood count complete auto&auto difrntl wbc Jame A [employer] Work Phone: Start: 11-02-2020 Comprehensive metabo lic panel Jame A [employer] Work Phone: Start: 11-02-2020 COVID-19, RAPID Jame A [employer] Work Phone: Start: 11-02-2020 Natriuretic peptide Tyl er A [employer] Work Phone: Start: 11-02-2020 Prothrombin time Jame A [employer] Work Phone: Start: 11-02-2020 Ecg routine ecg w/le ast 12 lds w/i&r Jame A [employer] Work Phone: Start: 03-07-2020 Mri brain brain [...] Author Start: 06-05-2025 DIABETES SCREEN DIABETES SCREEN [facility] Start: 05-23-2022 Influenza vaccination INFLUENZA (#1) [facility] Start: 05-10-2022 Creatinine measurement Creatinine mo nitoring [facility] Work Phone: Start: 05-10-2022 Potassium monitoring Potassium monit oring [employer] Work Phone: Start: 02-11-2022 Creatinine measurement Creatinine mo nitoring [facility] Work Phone: Start: 11-02-2021 Potassium monitoring [facility]it [facility] Work [facility]: Start: 09-22-2021 ADVANCE DIRECTIVE DISCUSSION ADVANCE DIRECTIVE DISCUSSION [facility] Start: 09-10-2021 End: 09-10-2021 Telemedicine consultation with patient 09/10/2021 Telemedicine Family Medicine Cynthia Uribe MD [address] [place] [id number] [facility] Start: 05-23-2021 Influenza vaccination Flu vaccine (# 1) [employer] Work Phone: Start: 03-07-2021 Creatinine measurement Creatinine mo [facility] [place], [place] Start: 03-07-2021 Potassium monitoring Potassium monit [place], [place] Start: 08-31-2020 Creatinine monitoring Creatinine mon [facility] Work Phone: Start: 08-31-2020 Potassium [facility] Work Phone: Start: 05-23-2020 Influenza vaccination Flu vacc ine (Season Ended) [place], [place] Start: 11-09-2019 Creatinine monitoring Creatinine mon [place], [place] Start: 11-09-2019 Potassium monitoring Potassium monit [place], [place] Start: 05-23-2019 Influenza vaccination Flu vaccine (# 1) [place] Start: 03-09-2019 Annual Wellness Visi t (AWV) Annual Wellness Visit (AWV) [facility] Work Phone: Start: 2008 BONE DENSITY BONE DENSITY [facility] Start: 2008 DEXA (modify frequen cy per FRAX score) DEXA (modify frequency per FRAX score) [place] Start: 2008 PNEUMOCOCCAL: 65+ (1 - PCV) PNEUMOCOCCAL: 65+ (1 - PCV) [facility] Start: 2006 Annual Wellness Visi t (AWV) Annual Wellness Visit (AWV) [place] Start: 07-25-1998 Screening for osteoporosis DEXA (modify frequency per FRAX score) [place] Start: 1993 Shingles Vaccine (1 of 2) Shingles Vaccine (1 of 2) [place], [place] Start: 1993 SHINGRIX VACCINE (1 of 2) SHINGRIX VACCINE (1 of 2) [facility] Start: 1962 DTaP/Tdap/Td vaccine (1 - Tdap) DTaP/Tdap/Td vaccine (1 - Tdap) [place], [place] Start: 1962 Urine microalbumin profile DTAP,TDAP,TD (1 - Tdap) [facility] Start: 1959 COVID-19 Vaccine (1 of 2) COVID-19 Vaccine (1 of 2) [employer] Work Phone: Start: 1954 DTaP/Tdap/Td vaccine (1 [...] for 1 Occurrences starting 11/02/2020 until 11/02/2020 [employer] Work Phone: Comment on above: One Time for 1 Occur rences starting 11/02/2020 until 11/02/2020 End: 11-02-2020 CT Abdomen and Pelvis W contrast IV CT Abdomen Pelvis W Contrast Imaging STAT Once for 1 Occurrences starting 11/02/2020 until 11/02/2020 [employer] Work Phone: Comment on above: Once for 1 Occurrenc es starting 11/02/2020 until 11/02/2020 End: 11-02-2020 CTA Chest W WO (PE study) CTA Chest W WO (PE study) Imaging STAT Once for 1 Occurrences starting 11/02/2020 until 11/02/2020 [employer] Work Phone: Comment on above: Once for 1 Occurrenc es starting 11/02/2020 until 11/02/2020 Culture, Blood 1 [facility] [place] End: 11-02-2020 Culture, Blood 1 Culture, Blood 1 Microbiology STAT One Time for 1 Occurrences starting 11/02/2020 until 11/02/2020 [employer] Work Phone: Comment on above: One Time for 1 Occur rences starting 11/02/2020 until 11/02/2020 Culture, Blood 2 [facility], [place] End: 11-02-2020 Culture, Blood 2 Culture, Blood 2 Microbiology STAT One Time for 1 Occurrences starting 11/02/2020 until 11/02/2020 [employer] Work Phone: Comment on above: One Time for 1 Occur rences starting 11/02/2020 until 11/02/2020 EKG 12 Lead - Chest Pain EKG 12 Lead - Chest Pain ECG STAT 11/02/2020 1:34 PM EST [employer] Work Phone: End: 11-02-2020 Hemogram (CBC) w/Auto Diff Hemogram (CBC) w/Auto Diff Lab STAT One Time for 1 Occurrences starting 11/02/2020 until 11/02/2020 [employer] Work Phone: Comment on above: One Time for 1 Occur rences starting 11/02/2020 until 11/02/2020 Initiate Oxygen Ther apy Protocol Initiate Oxygen Therapy Protocol Respiratory Care Routine Daily until discontinued starting 03/06/2020 [facility], [place] Comment on above: Daily until disconti nued starting 03/06/2020 End: 11-02-2020 Lactic Acid, Plasma [employer] Work Phone: Comment on above: One Time for 1 Occur rences starting 11/02/2020 until 11/02/2020 End: 11-02-2020 Miscellaneous Sendout 1 [employer] Work Phone: Comment on above: One Time [...] 06-16-2018 influenza, high dose seasonal, preservative-free Cynthia Uribe [place], [place] 08-07-2017 influenza, high dose seasonal, preservative-free Cynthia Calistacalebmarcelinarina [facility], [place] 03-26-2017 pneumococcal polysaccharide vaccine, 23 valent Cynthia [facility] [place] 11-11-2016 pneumococcal conjuga te vaccine, 13 valent [facility]thia [facility] [place] 10-16-2016 influenza, high dose seasonal, preservative-free Cynthia Uribe MD Work Phone: [facility] Work Phone: Payers Date Payer Category Payer Self-pay 2021 Medicaid [place] [facility] MEDICAID [id number] 2021-Present [phone] [address] [place] [address] Medicaid [id number] 2021 Medicare [place] [employer] [place] [employer] [id number] 2021-Present [phone] [address] [place] [address] Medicare [id number] 2021 Medicare [id number] 2021 Unknown [id number] 2017 Unknown [employer] MEDI CARE SUPP xxxxxxxxxxxx 2017-Present [address] [place] [address] xxxxxxxxxxxx [id number] 2017 Unknown [employer] C[employer] SUPP [id number] 2017-Present [address] [place] [address] [id number] 2014 Medicare MEDICARE MEDICAR E PART A AND B xxxxxxxxxxx 2014-Present [phone] [place] [address] xxxxxxxxxxx [id number] 2014 Medicare [id number] Unknown Unknown [id number] Unknown [id number] Unknown [id number] Unknown [id number] Unknown [id number] Unknown [id number] Unknown [id number] Unknown [id number] Unknown [id number] Unknown [id number] Unknown [id number] Unknown [id number] Unknown [id number] Unknown [id number] Social History Date Type Detail Facility Start: 08-31-2019 End: 03-07-2020 Tobacco [facility] status [facility] End: 09-22-1984 History of tobacco use [facility] End: 09-22-1984 History of tobacco use Cigarette Smoker [facility] [place] Start: 08-31-2019 End: 03-07-2020 Alcohol intake Current non-drinker of alcohol (finding) [employer] Work Phone: Start: 1945 [facility] Start: 11-02-2020 End: 05-10-2021 Tobacco use and exposure Never used [employer] Work Phone: Start: 05-26-2022 End: 06-05-2022 Exposure to SARS-CoV-2 (event) Not sure [employer] Work Phone: Start: 11-09-2018 Alcohol intake No [facility] [place] Former smoker Former smoker [facility] Work Phone: Start: 06-05-2022 Tobacco smoking status [facility] Tobacco smoking consumption unknown [facility] Start: 1945 Sex Assigned At Female [facility] Start: 12-23-2024 End: 12-23-2024 Sex Female (finding) [facility] NEGATED: Highlighted row - - [facility] [...] Work Phone: Clinical Notes 08-28-2021 to 06-24-[facility] JACINTO Castro - 06/05/2022 11:39 PM EDT Note Date & Type Note Facility 06-24-2022 Note HNO ID: [id number] Author: LATRICE Munoz Service: Social Work Author Type: Roofing Laborer Type: Plan of Care Filed: 06/24/2022 1:44 [...] 06/28/22 Progress Towards Short Term Goals: Progressing Prescription Eyeglass Maker Goals: Patient will have improved insight into illness;Patient will have achieved optimal level of functioning;Patient will verbalize benefits of compliance with medication and treatment after discharge Target Date Prescription Eyeglass Maker Goals: 07/01/22 Progress Towards Intermediate Goals: Progressing Interventions - Nursing: Offer frequent [...] 06/27/22 Progress Towards Short Term Goals: Progressing Prescription Eyeglass Maker Goals: Patient will demonstrate optimal level of functioning;Patient/support system will verbalize intent to comply with medication and treatment after discharge;Patient expresses examples of optimism and hope for the future Target Date Intermediate Goals: 06/29/22 Progress Towards Intermediate Goals: Progressing Interventions - Nursing: Obtain baseline [...] to build insig (more content not included)... [facility] 06-24-2022 Note HNO ID: [id number] Author: Robyn Roman RN Service: Psychiatry Author [...] 06/26/22 Progress Towards Short Term Goals: Progressing Prescription Eyeglass Maker Goals: Patient will have improved insight into illness;Patient will have achieved optimal level of functioning;Patient will verbalize benefits of compliance with medication and treatment after discharge;Patient will participate in cognitive, physical and social activities;Patient will display nonviolent behavior towards others, with aid of medication and supportive therapy Target Date Intermediate Goals: 06/28/22 Progress Towards Intermediate Goals: Progressing Interventions - Nursing: Offer frequent [...] grounding techniques and (more content not included)... [facility] 06-24-2022 Note HNO ID: [id number] Author: John Penny MD Service: Psychiatry Author [...] 0.5 mg PO. Will continue to monitor." P Krystal Snider Roofing Laborer most recent and updated notes is reviewed. [...] Date Value 05/23 (more content not included)... [facility] 06-23-2022 Note HNO ID: [id number] Author: Trisha Mcgill MD Service: Psychiatry Author [...] DATE: June 23, 2022 TIME: 8:22 PM [facility] 06-21-2022 Note HNO ID: [id number] Author: Trisha Mcgill MD Service: Psychiatry Author [...] DATE: June 21, 2022 TIME: 9:24 PM [facility] 06-21-2022 Note HNO ID: [id number] Author: Teo López RN Service: Behavioral Health [...] 06/26/22 Progress Towards Short Term Goals: Progressing Prescription Eyeglass Maker Goals: Patient will have improved insight into illness;Patient will have achieved optimal level of functioning;Patient will verbalize benefits of compliance with medication and treatment after discharge;Patient will participate in cognitive, physical and social activities;Patient will display nonviolent behavior towards others, with aid of medication and supportive therapy Target Date Prescription Eyeglass Maker Goals: 06/28/22 Progress Towards Intermediate Goals: Progressing Interventions - Nursing: Offer frequent [...] daily and as needed;Offer constructive activities to (more content not included)... [facility] 06-19-2022 Note HNO ID: [id number] Author: Trisha Mcgill MD Service: Psychiatry Author [...] stable. SIGNATURE: Trisha Mcgill MD PATIENT NAME: hCay Teague DATE: June 19, 2022 TIME: 11:54 PM [facility] 06-19-2022 Note HNO ID: [id number] Author: Teo López RN Service: Behavioral Health [...] 06/26/22 Progress Towards Short Term Goals: Progressing Prescription Eyeglass Maker Goals: Patient will have improved insight into illness;Patient will have achieved optimal level of functioning;Patient will participate in cognitive, physical and social activities;Patient will display nonviolent behavior towards others, with aid of medication and supportive therapy;Patient will verbalize benefits of compliance with medication and treatment after discharge Target Date Intermediate Goals: 06/28/22 Progress Towards Prescription Eyeglass Maker Goals: Progressing Interventions - Nursing: Offer frequent [...] promote grounding techniques (more content not included)... [facility] 06-17-2022 Note HNO ID: [id number] Author: Trisha Mcgill MD Service: Psychiatry Author [...] DATE: June 17, 2022 TIME: 11:51 PM [facility] 06-17-2022 Note HNO ID: [id number] Author: Melisa Peña RN Service: Behavioral Health [...] 06/17/22 Progress Towards Short Term Goals: Progressing Intermediate Goals: Patient will have improved insight into illness;Patient will have achieved optimal level of functioning;Patient will verbalize benefits of compliance with medication and treatment after discharge;Patient will participate in cognitive, physical and social activities Target Date Prescription Eyeglass Maker Goals: 06/19/22 Progress Towards Intermediate Goals: Progressing Interventions - Nursing: Offer frequent [...] as needed;Offer constructive (more content not included)... [facility] 06-15-2022 Note HNO ID: [id number] Author: Trisha Mcgill MD Service: Psychiatry Author Type: Physician Type: Progress Notes Filed: 06/16/2022 12:00 AM Note Text: PROGRESS NOTE BEHAVIORAL HEALTH SERVICE DATE: 06/15/2022 SERVICE TIME: 1544 The Interdisciplinary team met and reviewed treatment [...] mg tab(s) (ZyPREXA) 2.5 mg ORAL BID /5p DATA: Diagnostic tests [...] DATE: June 15, 2022 TIME: 11:54 PM [facility] 06-14-2022 Note HNO ID: [id number] Author: John Penny MD Service: Psychiatry Author [...] pudding. " [facility] Roofing Laborer most recent and updated notes is reviewed. Pt sleep remains poor, during the day she is visible on unit but confused. She frequently slaps table with open palm and calls out for help for no obvious reason. Pt continues to appear somewhat guarded and distrusting of everyone except on of her daughters. Daughter was able to complete enrollment for [facility] dual advantage, effective date 06/22/22. SW [...] of which s (more content not included)... [facility] 06-13-2022 Note HNO ID: [id number] Author: John Penny MD Service: Psychiatry Author [...] to direct. , nonsensical speech." Scarlett Snider Roofing Laborer most recent and updated notes is reviewed. SW faxed clinicals to [facility]. special programs director informed SW that they are not [...] spend in counseling (more content not included)... [facility] 06-12-2022 Note HNO ID: [id number] Author: Iva Bailey RN Service: Behavioral Health [...] 06/17/22 Progress Towards Short Term Goals: Progressing Intermediate Goals: Patient will have improved insight into illness;Patient will have achieved optimal level of functioning;Patient will verbalize benefits of compliance with medication and treatment after discharge;Patient will participate in cognitive, physical and social activities Target Date Prescription Eyeglass Maker Goals: 06/19/22 Progress Towards Intermediate Goals: Progressing Interventions - Nursing: Offer frequent [...] schedule and encou (more content not included)... [facility] 06-12-2022 Note HNO ID: [id number] Author: John Penny MD Service: Psychiatry Author [...] day area." [facility] Roofing Laborer most recent and updated notes is reviewed. SW received return call from [employer] in admissions at [facility]. She states that Pt would be coming LTC and would need a PAS (ASHLEY submitted for one and received favorable determination). She provided fax: [phone] for clinical information and her work cell for updates: [phone]. SW to send updated information. " Medical [...] spend in c (more content not included)... [facility] 06-11-2022 Note HNO ID: [id number] Author: John Penny MD Service: Psychiatry Author [...] at times, observed patting other Patient's knee. Polishing Wheel Repairer redirected Patient and educated on appropriate behavior. Patient cooperative with teaching. Med compliant whole in applesauce, but did spit out Colace gel capsule several times due to confusion." P Krystal F Dolores H Roofing Laborer most recent and updated notes is reviewed. ASHLEY placed call to [facility] admission department. ASHLEY informed admission director [...] of which s (more content not included)... [facility] 06-10-2022 Note HNO ID: [id number] Author: Melisa Peña RN Service: Behavioral Health [...] 06/10/22 Progress Towards Short Term Goals: Progressing Prescription Eyeglass Maker Goals: Patient will have improved insight into illness;Patient will have achieved optimal level of functioning;Patient will verbalize benefits of compliance with medication and treatment after discharge;Patient will participate in cognitive, physical and social activities;Patient will display nonviolent behavior towards others, with aid of medication and supportive therapy Target Date Prescription Eyeglass Maker Goals: 06/14/22 Progress Towards Intermediate Goals: Progressing Interventions - Nursing: Offer frequent [...] 06/06/22 Time Initiat (more content not included)... [facility] 06-10-2022 Note HNO ID: [id number] Author: John Penny MD Service: Psychiatry Author [...] good results." P M [facility] S H Roofing Laborer most recent and updated notes is reviewed. [...] FROM THE CHART OR MODIFY PRINTED COPY. [facility] 06-09-2022 Note HNO ID: [id number] Author: Beba Bray MD Service: ? Author [...] DATE: June 09, 2022 TIME: 1:07 PM [facility] 06-09-2022 Note HNO ID: [id number] Author: John Penny MD Service: Psychiatry Author [...] -pleasantly confused P [facility] H Roofing Laborer most recent and updated notes is reviewed. [...] FROM THE CHART OR MODIFY PRINTED COPY. [facility] 06-09-2022 Note HNO ID: [id number] Author: Interface Note Service: ? Author Type: ? Type: Progress Notes Filed: 06/09/2022 1:02 PM Note Text: Epic Scheduled Downtime: 06/09/2022 1:00:00 AM to 06/09/2022 2:07:00 AM [facility] 06-08-2022 Note HNO ID: [id number] Author: Beba Bray MD Service: ? Author [...] DATE: June 08, 2022 TIME: 12:08 PM [facility] 06-08-2022 Note HNO ID: [id number] Author: John Penny MD Service: Psychiatry Author [...] in applesauce" P M [facility] S H Roofing Laborer most recent and updated notes is reviewed. Pt discussed in treatment team and observed on unit. Pt does appear more alert and organized than on previous day. She will remain inpatient through the weekend. SW to submit PAS on Friday (06/10/22) and follow units with [facility] with updated clinical information" Medical comorbidity [...] FROM THE CHART OR MODIFY PRINTED COPY. [facility] 06-08-2022 Note HNO ID: [id number] Author: Interface Note Service: ? Author Type: ? Type: Progress Notes Filed: 06/08/2022 3:51 AM Note Text: Epic Scheduled Downtime: 06/08/2022 1:00:00 AM to 06/08/2022 3:36:00 AM [facility] 06-07-2022 Note HNO ID: [id number] Author: Teo Lóepz RN Service: Behavioral Health Author Type: Registered [...] 06/10/22 Progress Towards Short Term Goals: Progressing Prescription Eyeglass Maker Goals: Patient will have improved insight into illness;Patient will have achieved optimal level of functioning;Patient will verbalize benefits of compliance with medication and treatment after discharge;Patient will participate in cognitive, physical and social activities;Patient will display nonviolent behavior towards others, with aid of medication and supportive therapy Target Date Intermediate Goals: 06/14/22 Progress Towards Prescription Eyeglass Maker Goals: Progressing Interventions - Nursing: Offer frequent [...] Mood Disorder As (more content not included)... [facility] 06-07-2022 Note HNO ID: [id number] Author: John Penny MD Service: Psychiatry Author [...] appetite- refused to eat all meals. " [facility] [employer] [facility] Roofing Laborer most recent and updated notes is reviewed. Daughter states that Pt has not responded well to Haldol in the past. She states that Pt was on waitlist for [facility] but following this episode they are willing to take her once stabilized. Daughter is agreeable to SW reaching out and sharing clinical information with [facility] as needed. SW to follow with continued collateral contact and discharge planning as Pt's mental status improves. SW to submit PAS and send [facility] clinical updates once Pt [...] frontal lobe dementi (more content not included)... [facility] 06-06-2022 Note HNO ID: [id number] Author: John Penny MD Service: Psychiatry Author Type: Physician Type: Progress Notes Filed: 06/06/2022 7:00 AM Note Text: HANDP dictated # [id number] JOHN PENNY MD 06/06/2022 [facility] 06-05-2022 Miscellaneous Notes BEHAVIORAL HEALTH INTAKE NOTE SERVICE DATE: 06/06/2022 SERVICE TIME: 12:08AM Nature of the crisis: Confusion Presenting Problem: Chay Teague is a 77 year old female brought in to [facility] from Home by family for confusion. [...] not steal the car back for her. Polishing Wheel Repairer attempted interview with pt telephonically. It was [...] information obtained from pt's daughter, Jennifer Hidalgo ([phone]). Daughter reports that pt has underlying dementia, [...] with pt being on the waitlist at [facility]. PAST MEDICAL HISTORY: PAST MEDICAL HISTORY [...] to report How Legal Issues Were Verified: [facility] Web Content Specialist of Courts Website;[employer] [employer] Sex Offender Website;[facility] Sexual Offender Website Gender Specific Test: Not Applicable Sex at Time of : Female Patient Identified Gender: (Unable to assess.) Preferred Pronoun: (Unable to assess.) Sexual Orientation: (Unable to assess.) Cultural/Adventist Concerns Cultural Issues or Concerns That Might Affect Treatment: Unable to assess. Adventist/Spiritual Issues or Concerns That Might Affect Treatment: [...] in interview due to pt symptomatology. Other Warranty Administrator Described Mood: Pt is calm and cooperative, but not interviewable Warranty Administrator: MADELINE Hill Observed/Reported: Other: See Comment (Unable to assess.) Range of Affect: (Unable to assess.) Sleep: (Unable to assess.) Appetite: (Unable to assess.) Energy: (Unable to assess.) Anxiety/Trauma: (Unable to assess.) Non-Suicidal Self Injury Non-Suicidal Self Injury: (Unable to assess.) Suicidal Ideation Suicidal Ideation: (Pt's daughter denies hearing pt make mention of any SI. Polishing Wheel Repairer is unable to assess with pt directly.) Homicidal Ideation Homicidal Ideation: (Pt's daughter denies hearing pt make mention of any SI. Polishing Wheel Repairer is unable to assess with pt directly.) Non-Lethal Harm to Others or Damage/Destruction to Property Harm to Others or Damage/Destruction of Property: (Pt's daughter denies hearing pt make mention of any SI. Polishing Wheel Repairer is unable to assess with pt directly.) [...] with a rolator.) Person Providing Information: ED LENIN Hill and pt's daughter Continence: Continent Other Medical [...] John Penny Admission Status: Full Admit Unit: [address] Bed#: [id number] Report Given To: Vitaliy Report Date: 06/06/22 Report Time: 223 Admission Type: Medical Certificate SIGNATURE: JACINTO Castro PATIENT NAME: Chay Teague DATE: June 05, 2022 TIME: 11:39 PM documented in this encounter [facility] 11-10-2021 Note Hospitalist Discharg e Summary [...] follow the di (more content not included)... [facility] 08-28-2021 History of Presen t illness [...] more off balance than her normal. [facility] Work Phone: Evaluation note Diagnosis Vitamin D deficiency Unspecified vitamin D deficiency Recurrent depression (HCC) Major depressive disorder, recurrent episode, unspecified Essential hypertension Unspecified essential hypertension Other specified hypothyroidism Mild intermittent asthma without complication Unspecified asthma documented in this encounter [facility] Work Phone: Evaluation note* Diagnosis Vitamin D deficiency Unspecified vitamin D deficiency Other specified hypothyroidism documented in this encounter [facility] [address] Phone: Evaluation note* Diagnosis Dementia, senile with delusions, with behavioral disturbance (HCC)- Primary [facility] Work Phone: Reason for referral (narrative)No reason for referral information availableWLicking Memorial Hospital Work Phone: Summary Purpose Family History No Family History Records FoundNo Family History Records FoundNo Family History Records FoundNo Family History Records FoundNo Family History Records FoundNo Family History Records FoundNo Family History Records FoundNo Family History Records FoundNo Family History Records FoundNo Family History Records Found Advance Directives No Advanced Directives Records FoundDocuments on File Type Date Recorded Patient Histopath Tech Expl anation Advance Directives and Living Will Advance Directives and Living Will 03/14/2017 10:57 AM Power of Thermodynamics Professor 11/09/2018 4:07 PM JEAN PIERRE Hidalgo Latest Code Status on File Code Status Date Activated Date Inactivated Comments DNR-CCA 03/06/2020 5:15 PM DNR-CCA 03/06/2017 8:30 PM 03/09/2017 4:35 PM Documents on File Type Date Recorded Patient Histopath Tech Expl anation ACP-Advance Directive ACP-Advance Directive 03/14/2017 10:57 AM ACP-Power of Thermodynamics Professor 11/09/2018 4:07 PM Scarlett Hidalgo Latest Code Status on File Code Status Date Activated Date Inactivated Comments DNR-CCA 03/06/2020 5:15 PM 03/09/2020 3:12 PM Latest Code Status on File Code Status Date Activated Date Inactivated Comments DNR-CCA 03/06/2017 8:30 PM 03/09/2017 4:35 PM Documents on File Type Date Recorded Patient Histopath Tech Expl anation ACP-Advance Directive ACP-Power of Thermodynamics Professor 11/09/2018 4:07 PM P OA - Jennifer Hidalgo ACP-Advance Directive 03/14/2017 10:57 AM Discharge Instructions * Pharmacy* Lilia Tracey, [facility] - 03/07/2020 9:16 AM EDT * Discharge Instr - Lab* Deirdre Storm RN - 03/09/2020 11:36 AM EDT Your physician has ordered skilled home care services for you. Your home care will be provided by: [facility] [phone] * Additional Instructions* John Coe MD - 03/06/2020 Only take the Effexor; Stop taking the Aricept and Buspar; I put in a number for a Slitter Service And Setter if you wish to have the abscess looked [facility] Learning About Delirium What is delirium? [...] Where can you learn more? Go to [email or web address] and sign in to your [employer] account. Enter Z511 in the Search Health Information box to learn more about Learning About Delirium. If you do not have an account, please click on the "Sign Up Now" link. Current as of: October 22, 2019 Content Version: 12. [employer]. Care instructions adapted under license by [employer]. If you have questions about a medical condition or this instruction, always ask your healthcare professional. [employer] disclaims any warranty or liability for your [...] and the need for follow-up with a physician/INVESTIGATIONS DIRECTOR/PA after discharge. Discussed the patient s personal [...] through Care Everywhere. * Altered Mental Status (Greenlandic) documented in this encounter History of Present Illness * WenMalka OTA - 03/09/2020 9:32 AM EDT Occupational Therapy Facility/Department: [facility]S TELEMETRY Daily Treatment Note NAME: Chay Teague : 1945 Date of Service: 03/09/2020 Discharge Recommendations: Subacute/Penitentiary Facility Assessment Performance deficits / Impairments: Decreased [...] Timed Code Treatment Minutes: 30 Minutes(2x ADL) ASTON Muniz * Claude Beal, LAVERNE, LD - 03/08/2020 3:24 PM EDT Discussed with DBA- pt advanced to Dental soft and is appropriate for thin liquids at this time. Initiated chocolate Ensure high protein per MNT protocol. Ensure High Protein provides 160 kcals, 16 gprotein per serving. Will monitor PO intakes for adequacy. RD will continue to follow this patient. * Bozena Shafer PTA - 03/08/2020 2:30 PM EDT Physical Therapy Facility/Department: [facility] TELEMETRY Daily Treatment Note NAME: Chay Teague : 1945 Date of Service: 03/08/2020 Discharge Recommendations: Subacute/Penitentiary Facility Assessment Assessment: Pt appears more clear [...] 25 Minutes(ther ex and gait) Bozena Shafer PTA * Meghna Rothman RN - 03/08/2020 11:30 AM EDT Patient up to chair. Chair alarm in place. * Yoly Cooney SLP - 03/08/2020 10:47 AM EDT Speech Language Pathology Facility/Department: [facility] Dysphagia Treatment Note NAME: Chay [...] Pain:no current complaint S: Pt was alert, child care director at bedside. O: Assess advance diet trials. [...] soft. Total Minutes: 24 minutes Yoly Cooney M.A.CCC/DBA Speech-Language Pathologist * John Coe MD - 03/08/2020 9:07 AM EDT Hospitalist Progress Note 03/08/2020 9:07 AM [phone]: Please page [place] [phone] for patient care issues. [phone]: Please page [facility] night Hospitalist for any issues. Subjective: Admit Date: 03/06/2020 PCP: Cynthia Uribe MD Interval History: Pt continues to improve. Per apple packing header, mentation is near "90 %". Pt more talkative and able to converse with everyone in the room. No overnight issues. DIET DYSPHAGIA PUREED; Mildly Thick (Corder) Patient Vitals for the past 96 hrs [...] Labial Abscess - Unable to visualize; Outpatient Stain Dipper referral Diagnosis Date Anxiety Asthma Dementia (HCC) Depression History of blood transfusion Hypertension Hypothyroidism Plan - Monitor Mentation - PT/OT -am labs, replace lytes prn -increase activity -DVT prophylaxis: [x] Lovenox [] Heparin [] SCDs [x] Encourage ambulation [] Already on Anticoagulation Advance Directive: DNR-CCA Discharge plannin-48 hours John Coe MD Division of Hospitalist Medicine Inpatient Medical Services PAGER: [phone] * Meghna Rothman RN - 03/08/2020 8:15 AM EDT Spoke with patients daughter Jennifer regarding updates. * Jluia Lantigua PT - 03/07/2020 3:13 PM EDT Physical Therapy Facility/Department: [facility] Initial Assessment NAME: Chay Teague : 1945 Date of Service: 03/07/2020 Having reviewed the treatment plan and goals for this patient, I certify that the plan of care below is medically necessary and appropriate. Discharge Recommendations: Subacute/Penitentiary Facility PT Equipment Recommendations Other: TBD at [...] has noted cognitive deficits, h/o dementia and [place] which may impact her ability to learn. [...] Ambulation Assistance: Independent Transfer Assistance: Independent Active Animal Biologist: No Patient's Animal Biologist Info: Family Mode of Transportation: Car Occupation: [...] recall of recent events;Decreased short term memory;Decreased long-term memory Safety Judgement: Decreased awareness of need [...] for falls, Left in bed, Nurse notified AM-[facility] Score [facility] Inpatient Mobility Raw Score : 10 (03/07/20 1504) [facility] Inpatient T-Scale Score : 32.29 (03/07/20 1504) Mobility Inpatient CMS 0-100% Score: 76.75 (03/07/20 1504) Mobility Inpatient CMS G-Code Modifier : CL (03/07/20 1504) [facility] Mobility Inpatient How much difficulty turning [...] climbing 3-5 steps with a railing?: Total [facility] Inpatient Mobility Raw Score : 10 [facility] Inpatient T-Scale Score : 32.29 Mobility [...] appropriate. Date of Service: 03/07/2020 Discharge Recommendations: Subacute/Penitentiary Facility Assessment Performance deficits / Impairments: Decreased [...] Ambulation Assistance: Independent Transfer Assistance: Independent Active Animal Biologist: No Patient's Animal Biologist Info: Family Mode of Transportation: Car Occupation: [...] recall of recent events;Decreased short term memory;Decreased long-term memory Safety Judgement: Decreased awareness of need [...] 03/07/2020 10:49 AM EDT Physical Therapy Facility/Department: [facility] Initial Assessment NAME: Chay Teague [...] NPO due to failed nursing swallow screen. DBA consulted for further evaluation. Provide diet textures per DBA recommendation. 2. Will assess PO intake adequacy once diet is advance to determine need for additional ONS. 3. Monitor for timely nutrition progression, wts, and labs. RD will follow. Nutrition Assessment: Pt admit with delirium/AMS. Pt is currently NPO due to failing nursing bedside swallow assessment. DBA consult ordered for further evaluation. Pt with [...] fluid accumulation, Extremities(+1 non pitting BLE) 6. Shoe Treer Strength-Not measured Nutrition Risk Level: High Nutrient Needs: Estimated Daily Total Kcal: 3870-0695 kcals(28-30) Estimated Daily Protein (g): 52-62(1-1.2) Estimated [...] Change: , no significant wt loss noted [place] Wt: 115 lb (52.2 kg), % [place] 174% BMI Classification: BMI 35.0 - 39.9 Obese Class II Nutrition Interventions: Continue NPO Continued Inpatient Monitoring, Swallow Evaluation, Speech Therapy Nutrition Evaluation: Evaluation: Goals set Goals: Pt will receive/tolerate adequate nutrition with safe swallow Monitoring: Nutrition Progression, Diet Tolerance, I&O, Mental Status/Confusion, Weight, Pertinent Labs, Chewing/Swallowing, Monitor Bowel Function Contact Number: [phone] * Yoly Cooney, DBA - 03/07/2020 8:17 AM EDT Speech Language Pathology Facility/Department: [facility] CLINICAL BEDSIDE SWALLOW EVALUATION Having [...] Cognition currently effecting eating/swallowing. Treatment Plan Requires DBA Intervention: Yes Duration/Frequency of Treatment: 3 visits Recommended Diet and Intervention Diet Solids Recommendation: Dysphagia Pureed (Dysphagia I) Liquid Consistency Recommendation: Mildly Thick (Corder) Recommended Form of Meds: PO Recommendations: Total feed;Assist feed Therapeutic Interventions: Patient/Family education Compensatory Swallowing Strategies Compensatory Swallowing Strategies: Alternate solids and liquids;Upright as possible for all oral intake;External pacing Treatment/Goals Short-term Goals Timeframe for Short-term Goals: 3 visits Goal 1: Pt will tolerate advance trials with DBA. Goal 2: Pt will tolerate puree diet with mildly thick liquids without respiratory distress/symtoms aspiration. Goal 3: Pt will advance to soft diet as tolerated. General Chart Reviewed: Yes Subjective Subjective: gravedigger visiting at bedside Behavior/Cognition: Lethargic;Requires cueing Respiratory Status: O2 via nasual cannula O2 Device: Nasal cannula Liters of Oxygen: 2 L Communication Observation: Aphasia(fluctuated.) Follows Directions: Simple Dentition: Dentures top;Dentures bottom Patient Positioning: Upright in bed Baseline Vocal Quality: Normal Volitional Swallow: Delayed Prior Dysphagia History: None indicated in [facility] EPIC Consistencies Administered: Dysphagia Minced and Moist (Dysphagia II);Corder - cup;Thin - cup;Ice Chips Vision/Hearing Vision [...] Patient Education Response: Needs reinforcement Therapy Time DBA Individual Minutes Time In: 1010 Time Out: 1036 Minutes: 26 RONALD Higgins 03/07/2020 1:38 PM * John Coe MD - 03/07/2020 7:34 AM EDT Hospitalist Progress Note 03/07/2020 7:34 AM [phone]: Please page [place] [phone] for patient care issues. [phone]: Please page [facility] Hospitalist for any issues. Subjective: Admit Date: 03/06/2020 PCP: Cynthia Uribe MD Interval History: Executive Director [employer] Brand Marketing in the room and states mentation is [...] texture, turgor normal. No rashes or lesions Stain Dipper: Unable to visualize cyst given body habitus and lack of speculum (OB-Stain Dipper on discharge recommended). Neurologic: Neurovascularly intact without [...] Labial Abscess - Unable to visualize; Outpatient Stain Dipper referral Diagnosis Date Anxiety Asthma Dementia (HCC) Depression History of blood transfusion Hypertension Hypothyroidism Plan - Monitor Mentation - PT/OT - Stain Dipper referral as outpatient -am labs, replace lytes prn -increase activity -DVT prophylaxis: [x] Lovenox [] Heparin [] SCDs [x] Encourage ambulation [] Already on Anticoagulation Advance Directive: DNR-CCA Discharge planning: TBD John oCe MD Division of Hospitalist Medicine Inpatient Medical Services PAGER: [phone] * Ronda Thomas RN - 03/06/2020 6:56 [...] to beginDysphagia Pureed Diet with Mildly Thick (Corder) liquids. Proceed to formal Speech Pathologist Swallow [...] Complaint and Reason for Visit Chief Complaint LONG TERM LAB WOR K LABWORK LONG TERM LABWORK Chief Complaint LONG TERM LAB WOR K LABWORK LONG TERM LABWORK LABWORK Chief Complaint LONG TERM LABWORK LABWORK LONG TERM LABWORK Chief Complaint LABWORK LONG TERM LABWORK LONG TERM LABWORK Chief Complaint LONG TERM LABWORK LONG TERM LAB WORK Chief Complaint LONG TERM LABWORK LONG TERM LAB WORK LONG TERM LAB WORK Chief Complaint LONG TERM LAB WOR K LONG TERM LAB WORK LONG TERM LAB WORK Chief Complaint LONG TERM LAB WOR K LONG TERM LAB WORK LONG TERM LAB WORK LABWORK Chief Complaint LONG TERM LAB WOR K LONG TERM LAB WORK LABWORK LABWORK Chief Complaint Admit Date LABWORK August 30, 2024 5 :00am LONG TERM LAB WORK September 16 4:00am LONG TERM LAB WORK November 10 5:00am LABWORK November 17, 2024 5:00am LONG TERM LAB WORK November 22, 2024 5: 00am LONG TERM LAB WORK December 09, 2024 4 :00am Additional Source Comments INFORMATION SOURCE (unrecogn ized section and content) DATE CREATED AUTHOR 03/17/2018 [facility] DATE CREATED AUTHOR AUTHOR'S ORGANIZ ATION 03/09/2019 [facility] [employer] DATE CREATED AUTHOR AUTHOR'S ORGANIZ ATION 03/15/2019 [facility] DATE CREATED AUTHOR AUTHOR'S ORGANIZ ATION 08/31/2021 [facility] DATE CREATED AUTHOR AUTHOR'S ORGANIZ ATION 09/18/2021 [facility] DATE CREATED AUTHOR AUTHOR'S ORGANIZ ATION 11/21/[address] [facility] DATE CREATED AUTHOR AUTHOR'S ORGANIZ ATION 06/22/2022 [facility] DATE CREATED AUTHOR AUTHOR'S ORGANIZ ATION 06/25/2022 [facility] DATE CREATED AUTHOR AUTHOR'S ORGANIZ ATION 08/28/2022 [facility] DATE CREATED AUTHOR AUTHOR'S ORGANIZ ATION [facility]20[facility] Reason for Visit (unrecogniz ed [...] or prosecute any alcohol or drug abuse patient.[facility] Care Teams (unrecognized sec tion and content) Team Status: Inactive Member Role Status Dates Saurabh MANJARREZ MD Attending Provider, Referring Pro vider Active Team Status: Inactive Member Role Status Dates Saurabh MANJARREZ MD Attending Provider Active Change Control Coordinator Relationship Specialty Start Date End Date Cynthia Uribe MD [address] [place] [phone] PCP - General Family Practice 06/05/22 Team [...] BE BASED ON THE PRIMARY CLINICAL RECORDS. [facility] provides no warranty or guarantee of the accuracy or completeness of information in this document.
[2025-08-15 08:11] LABS: Hematocrit 43.7 % (37-47); Hemoglobin 14.2 g/dL (12.0-15.0); Mean Corp Hgb Conc 32.5 g/dL (32-36); Mean Corpuscular Volume 98.0 fL (81-99); Mean Platelet Vol. 11.7 fl (6.2-12.0); Platelet Count 177 K/mm3 (150-450); RBC Distribution Width CV 13.4 % (11.6-14.6); RBC Distribution Width SD 48.4 fl (35.1-43.9); Red Blood Count 4.46 M/mm3 (4.2-5.4); White Blood Count 8.9 K/mm3 (4.4-11.0)
[2025-08-15 08:32] LABS: AST(SGOT) 23 U/L (<=31); Alanine Aminotransfer ALT/SGPT 16 U/L (<=34); Albumin, Serum 3.2 g/dL (3.4-4.8); Alkaline Phosphatase 55 U/L (35-104); Anion Gap 9 (5-15); BUN 21 mg/dL (4-19); BUN/Creat Ratio 23.1 RATIO (10-20); Calcium,Total 8.7 mg/dL (7.6-11.0); Carbon Dioxide 27.5 mmol/L (21.0-32.0); Chloride 107 mmol/L (98-108); Globulin 2.6 g/dL (2.2-4.2); Glucose 85 mg/dL (70-99); Potassium 4.5 mmol/L (3.3-5.1)
[2025-08-15 10:43] LABS: Immature Granulocytes Count 0.030 X10^3/uL (0.0-0.0); NRBC Flagged by Analyzer 0 % (0-5)
[2025-08-15 11:00] LABS: Cholesterol 176 mg/dL (<=200); Low Density Lipoprotein Calc. 114 mg/dL; Triglycerides 119 mg/dL; Very Low Density Lipoprotein 24 mg/dL (5-40); cholesterol:hdl ratio screen 4.35
== END ==
LOC: OLS.ACH 05:00
PROVIDERS: Visit Provider Internal Medicine
DX: I10 Essential (primary) hypertension (principal); E03.9 Hypothyroidism, unspecified; E78.00 Pure hypercholesterolemia, unspecified; G31.09 Other frontotemporal neurocognitive disorder
CPT/HCPCS: 36415; 80053; 80061; 84443; 85025

== ENCOUNTER → 2025-08-19 | Outpatient (REF) | payer MEDICARE, SELFPAY ==
[2025-08-20 10:31] LABS: Mucous, Urine 0 SEEN /hpf (<or=2+); Red Blood Cells-Urine 0 SEEN /hpf (0-5); Squamous Epithelial Cells - UA 0 SEEN /hpf (5-10)
--- OUTSIDE RECORDS SUMMARY | 2025-08-20 10:34 | XMS RPT_ITS | CCD ---
Author Organization [facility] Care Team Providers Care Web Site Administrator Name Role Phone Barbara, Scott Unavailable Unavailable [...] hours as needed for Pain 0 Active [id number] actuat albuterol 0.09 mg/actuat metered dose [...] MISC (5 sources) Start: 08-31-2019 [facility] Indications: Mild intermittent asthma without complication [...] reach optimal image enhancement. polyethylene glycol 3350 40975 mg powder for oral solution (1 source) [...] 10 mL, Intravenous, PRN, Line Care, Per Table Cut Off Saw Operator Request, Starting Fri03/06/20 at 1709, For 72 hours May use order for Line Care after every IV line use and Agitated Saline Bubble Study. Administration for Bubble Study per direct support specialist request for only. Remove 1 mL [...] Start: 02-21-2021 take 1 capsule by mo [facility] every week vitamin D (ERGOCALCIFEROL) 1.25 MG (72349 UT) CAPS capsule Indications: Vitamin D deficiency TAKE 1 CAPSULE BY MOUTH ONE TIME PER WEEK 12 capsule 0 02/21/2021 Active Start: 06-01-2020 take 1 capsule by mo [facility] every week vitamin D (ERGOCALCIFEROL) 1.25 MG (98817 UT) CAPS capsule Indications: Vitamin D deficiency TAKE 1 CAPSULE BY MOUTH ONE TIME PER WEEK 12 capsule 1 06/01/2020 Active Start: 02-01-2020 take 80416 [IU] by m outh every week 50,000 Units, Oral, WEEKLY, First dose on Fri03/07/20 at 0900 Start: 03-09-2017 take 1 capsule by mo [facility] every week vitamin D (ERGOCALCIFEROL) 64429 units capsule Take 1 capsule by mouth [...] 08-01-2025 VALPROIC ACID 26 ug/mL Low 50-100 [facility] Comment on above: Order Comment: 105.1 Result Comment: Valp roic Acid concentrations >100 ug/mL are potentially toxic. Performed By: #### M 100.638 #### [facility] [address] [place], [address] Vitamin D,25 Hydroxyon 08-01 Vitamin D 25-OH 53.3 ng/mL Normal 30-100 [facility] Comment on above: Order Comment: 105-1 Result Comment: Kerline min D Status Deficiency: <20 ng/mL (50nmol/L) Insufficiency: 20-30 ng/mL (50-75 nmol/L) Sufficiency: 30-100 ng/mL (75-250 nmol/L) Toxicity: >100 ng/mL (>250 nmol/L) Performed By: #### L 506.1001, L501.8100 #### [facility] [address] [place], [address] CBC W/Diff, Automatedon 09-0 -2024 Absolute Lymph 3.21 X10 3/uL Normal 0.83-4.51 [facility] Comment on above: Order Comment: 105.1 Performed By: #### L 500.2500, L100.0500 #### [facility] [address] [place], [address] Absolute Neut 3.1 X10 3/uL Normal 2.0-7.7 [facility] Comment on above: Order Comment: 105.1 Performed By: #### L 500.2500, L100.0500 #### [facility] [address] [place], [address] Basophils/100 WBC (Bld) 0.7 % Normal 0-1 [facility] Comment on above: Order Comment: 105.1 Performed By: #### L 500.2500, L100.0500 #### [facility] [address] [place], [address] Eosinophils/100 WBC (Bld) 4.3 % Normal 0-5 [facility] Comment on above: Order Comment: 105.1 Performed By: #### L 500.2500, L100.0500 #### [facility] [address] [place], [address] Erythrocyte distribution width (RBC) [Ratio] 13.9 % Normal 11.6-14.6 [facility] Comment on above: Order Comment: 105.1 Performed By: #### L 500.2500, L100.0500 #### [facility] [address] [place], [address] Hematocrit (Bld) [Volume fraction] 42.7 % Normal 37-47 [facility] Comment on above: Order Comment: 105.1 Performed By: #### L 500.2500, L100.0500 #### [facility] [address] [place], [address] Hemoglobin (Bld) [Mass/Vol] 13.9 g/dL Normal 12.0-15.0 [facility] Comment on above: Order Comment: 105.1 Performed By: #### L 500.2500, L100.0500 #### [facility] [address] [place], [address] IG% 0.300 Normal 0.0-0.9 [facility] Comment on above: Order Comment: 105.1 Result Comment: IG% - Immature Granulocytes (promyelocytes, myelocytes and metamyelocytes) > 1% indicates that a LEFT SHIFT is Present. Performed By: #### L 500.2500, L100.0500 #### [facility] [address] [place], [address] Lymphocytes/100 WBC (Bld) 44.3 % High 19-41 [facility] Comment on above: Order Comment: 105.1 Performed By: #### L 500.2500, L100.0500 #### [facility] [address] [place], [address] MCH (RBC) [Entitic mass] 32.1 pg High 27.0-32.0 [facility] Comment on above: Order Comment: 105.1 Performed By: #### L 500.2500, L100.0500 #### [facility] [address] [place], [address] MCHC (RBC) [Mass/Vol] 32.6 g/dL Normal 32-36 [facility] Comment on above: Order Comment: 105.1 Performed By: #### L 500.2500, L100.0500 #### [facility] [address] [place], [address] MCV (RBC) [Entitic vol] 98.6 fL Normal 81-99 [facility] Comment on above: Order Comment: 105.1 Performed By: #### L 500.2500, L100.0500 #### [facility] [address] [place], [address] Monocytes/100 WBC (Bld) 7.3 % Normal 0-10 [facility] Comment on above: Order Comment: 105.1 Performed By: #### L 500.2500, L100.0500 #### [facility] [address] [place], [address] Neutrophils/100 WBC (Bld) 43.1 % Low 47-70 [facility] Comment on above: Order Comment: 105.1 Performed By: #### L 500.2500, L100.0500 #### [facility] [address] [place], [address] Nucleated RBC (Bld) [#/Vol] 0 10*3/uL Normal 0-5 [facility] Comment on above: Order Comment: 105.1 Performed By: #### L 500.2500, L100.0500 #### [facility] [address] [place], [address] Platelet mean volume (Bld) [Entitic vol] 11.8 fL Normal 6.2-12.0 [facility] Comment on above: Order Comment: 105.1 Performed By: #### L 500.2500, L100.0500 #### [facility] [address] [place], [address] Platelets (Bld) [#/Vol] 213 10*3/uL Normal 150-450 [facility] Comment on above: Order Comment: 105.1 Performed By: #### L 500.2500, L100.0500 #### [facility] [address] [place], [address] RBC (Bld) [#/Vol] 4.33 10*6/uL Normal 4.2-5.4 [facility] Comment on above: Order Comment: 105.1 Performed By: #### L 500.2500, L100.0500 #### [facility] [address] [place], [address] RDW SD 51.1 fl High 35.1-43.9 [facility] Comment on above: Order Comment: 105.1 Performed By: #### L 500.2500, L100.0500 #### [facility] [address] [place], [address] WBC (Bld) [#/Vol] 7.3 10*3/uL Normal 4.4-11.0 [facility] Comment on above: Order Comment: 105.1 Performed By: #### L 500.2500, L100.0500 #### [facility] [address] [place], [address] Comprehensive Metabolic Prof ilon 05-26-2025 Albumin [Mass/Vol] 3.5 g/dL Normal 3.4-4.8 [facility] Comment on above: Order Comment: 105.1 Performed By: #### L 500.2500, L100.0500 #### [facility] [address] [place], [address] Albumin/Globulin [Mass ratio] 1.2 {ratio} Normal 0.9-2.4 [facility] Comment on above: Order Comment: 105.1 Performed By: #### L 500.2500, L100.0500 #### [facility] [address] [place], [address] ALK PHOS 55 U/L Normal 35-104 [facility] Comment on above: Order Comment: 105.1 Performed By: #### L 500.2500, L100.0500 #### [facility] [address] [place], [address] ALT [Catalytic activity/Vol] 7 U/L Normal <=34 [facility] Comment on above: Order Comment: 105.1 Performed By: #### L 500.2500, L100.0500 #### [facility] [address] [place], [address] AST [Catalytic activity/Vol] 19 U/L Normal <=31 [facility] Comment on above: Order Comment: 105.1 Performed By: #### L 500.2500, L100.0500 #### [facility] [address] [place], [address] Bilirubin [Mass/Vol] 0.57 mg/dL Normal 0.00-1.30 [facility] Comment on above: Order Comment: 105.1 Performed By: #### L 500.2500, L100.0500 #### [facility] [address] [place], [address] BUN/CRE 23.0 RATIO High 10-20 [facility] Comment on above: Order Comment: 105.1 Performed By: #### L 500.2500, L100.0500 #### [facility] [address] [place], [address] Calcium [Mass/Vol] 9.1 mg/dL Normal 7.6-11.0 [facility] Comment on above: Order Comment: 105.1 Performed By: #### L 500.2500, L100.0500 #### [facility] [address] [place], [address] Chloride [Moles/Vol] 106 mmol/L Normal 98-108 [facility] Comment on above: Order Comment: 105.1 Performed By: #### L 500.2500, L100.0500 #### [facility] [address] [place], [address] CO2 [Moles/Vol] 27.6 mmol/L Normal 21.0-32.0 [facility] Comment on above: Order Comment: 105.1 Performed By: #### L 500.2500, L100.0500 #### [facility] [address] [place], [address] Creatinine [Mass/Vol] 0.83 mg/dL Normal 0.70-1.20 [facility] Comment on above: Order Comment: 105.1 Performed By: #### L 500.2500, L100.0500 #### [facility] [address] [place], [address] GAP 9 Normal 5-15 [facility] Comment on above: Order Comment: 105.1 Performed By: #### L 500.2500, L100.0500 #### [facility] [address] [place], [address] GFR/1.73 sq M.predicted among non-blacks MDRD (S/P/Bld) [Vol rate/Area] 71 mL/min/{1.73_m2} Normal >60 [facility] Comment on above: Order Comment: 105.1 Result Comment: mL/m in/1.73m2 CKD-EPI Creatinine Equation (2020) Performed By: #### L 500.2500, L100.0500 #### [facility] [address] [place], [address] Globulin (S) [Mass/Vol] 3.0 g/dL Normal 2.2-4.2 [facility] Comment on above: Order Comment: 105.1 Performed By: #### L 500.2500, L100.0500 #### [facility] [address] [place], [address] Glucose [Mass/Vol] 80 mg/dL Normal 70-99 [facility] Comment on above: Order Comment: 105.1 Performed By: #### L 500.2500, L100.0500 #### [facility] [address] [place], [address] Potassium [Moles/Vol] 4.1 mmol/L Normal 3.3-5.1 [facility] Comment on above: Order Comment: 105.1 Performed By: #### L 500.2500, L100.0500 #### [facility] [address] [place], [address] Sodium [Moles/Vol] 143 mmol/L Normal 133-145 [facility] Comment on above: Order Comment: 105.1 Performed By: #### L 500.2500, L100.0500 #### [facility] [address] [place], [address] T PROT 6.5 g/dL Normal 5.9-8.4 [facility] Comment on above: Order Comment: 105.1 Performed By: #### L 500.2500, L100.0500 #### [facility] [address] [place], [address] Urea nitrogen [Mass/Vol] 19 mg/dL Normal 4-19 [facility] Comment on above: Order Comment: 105.1 Performed By: #### L 500.2500, L100.0500 #### [facility] [address] [place], [address] Lipid Profileon 05-26-2025 CHOL:HDL 4.28 Normal [facility] Comment on above: Order Comment: 105.1 Performed By: #### L 500.2500, L100.0500 #### [facility] [address] [place], [address] Cholesterol [Mass/Vol] 203 mg/dL High <=200 [facility] Comment on above: Order Comment: 105.1 Result Comment: Chol esterol level, Desirable <200 mg/dL Borderline high cholesterol 200-239 mg/dL High cholesterol >=240 mg/dL Recommendations of the NCEP Adult Treatment Panel for the following risk-cutoff thresholds for the [place] population. Performed By: #### L 500.2500, L100.0500 #### [facility] [address] [place], [address] Cholesterol in HDL [Mass/Vol] 47 mg/dL Normal [facility] Comment on above: Order Comment: 105.1 Result Comment: Sherie onal Cholesterol Education Program (NCEP) guidelines: <40 mg/dL: Low HDL-cholesterol (major risk factor for CHD) >= 60 mg/dL: High HDL-cholesterol (negative risk factor for CHD) HDL-cholesterol is affected by a number of factors, e.g. smoking, exercise, hormones, sex and age. Performed By: #### L 500.2500, L100.0500 #### [facility] [address] [place], [address] Cholesterol in LDL [Mass/Vol] 126 mg/dL Normal [facility] Comment on above: Order Comment: 105.1 Result Comment: Bord yyutrz=912-603 mg/dL Higher Edbl=710 mg/dL or greater Friedwald Equation for LDL-C Performed By: #### L 500.2500, L100.0500 #### [facility] [address] [place], [address] Cholesterol in VLDL [Mass/Vol] 30 mg/dL Normal 5-40 [facility] Comment on above: Order Comment: 105.1 Performed By: #### L 500.2500, L100.0500 #### [facility] [address] [place], [address] Triglyceride [Mass/Vol] 148 mg/dL Normal [facility] Comment on above: Order Comment: 105.1 Result Comment: The drugs N-Acetylcysteine and Metamizole may falsely depress this assay. Normal range: <150 mg/dL Borderline High: 150-199 mg/dL High: 200-499 mg/dL Very High: >500 mg/dL Performed By: #### L 500.2500, L100.0500 #### [facility] [address] [place], [address] Thyroid Stim Hormone (TSH)on 05-26-2025 TSH 1.290 uIU/mL Normal 0.300-4.200 [facility] Comment on above: Order Comment: 105.1 Performed By: #### L 500.2500, L100.0500 #### [facility] [address] [place], [address] Valproic Acid (Depakene) Lev ladonna 05-09-2025 VALPROIC ACID 7 ug/mL Low 50-100 [facility] Comment on above: Order Comment: 105-1 Result Comment: Valp roic Acid concentrations >100 ug/mL are potentially toxic. Performed By: #### L 506.1001, L501.8100 #### [facility] [address] [place], [address] Vitamin D,25 Hydroxyon 05-09 Vitamin D 25-OH 40.8 ng/mL Normal 30-100 [facility] Comment on above: Order Comment: 105.1 Result Comment: Kerline min D Status Deficiency: <20 ng/mL (50nmol/L) Insufficiency: 20-30 ng/mL (50-75 nmol/L) Sufficiency: 30-100 ng/mL (75-250 nmol/L) Toxicity: >100 ng/mL (>250 nmol/L) Performed By: #### L 500.2500, L100.0500 #### [facility] [address] [place], [address] RESPIRATORY PANEL MOLECULARo n 04-08-2025 RP PANEL ADENOVIRUS Not Detected INFLUENZA A Not Detected INFLUENZA A (SUBTYPE H1) Not Detected INFLUENZA A (SUBTYPE H3) Not Detected INFLUENZA B Not Detected HUMAN METAPHNEUMO Not Detected PARAINFLUENZA 1 Not Detected PARAINFLUENZA 2 Not Detected PARAINFLUENZA 3 Not Detected PARAINFLUENZA 4 Not Detected RHINOVIRUS Not Detected RSV A Not Detected RSV B Not Detected Normal [facility] Comment on above: Performed By: #### M 100.638 #### [facility] [address] [place], [address] CBC W/Diff, Automatedon 02-20 Absolute Lymph 3.19 X10 3/uL Normal 0.83-4.51 [facility] Comment on above: Order Comment: 105.1 Performed By: #### M 100.638 #### [facility] [address] [place], [address] Absolute Neut 3.0 X10 3/uL Normal 2.0-7.7 [facility] Comment on above: Order Comment: 105.1 Performed By: #### M 100.638 #### [facility] [address] [place], [address] Basophils/100 WBC (Bld) 1.0 % Normal 0-1 [facility] Comment on above: Order Comment: 105.1 Performed By: #### M 100.638 #### [facility] [address] [place], [address] Eosinophils/100 WBC (Bld) 3.8 % Normal 0-5 [facility] Comment on above: Order Comment: 105.1 Performed By: #### M 100.638 #### [facility] [address] [place], [address] Erythrocyte distribution width (RBC) [Ratio] 13.4 % Normal 11.6-14.6 [facility] Comment on above: Order Comment: 105.1 Performed By: #### M 100.638 #### [facility] [address] [place], [address] Hematocrit (Bld) [Volume fraction] 45.0 % Normal 37-47 [facility] Comment on above: Order Comment: 105.1 Performed By: #### M 100.638 #### [facility] [address] [place], [address] Hemoglobin (Bld) [Mass/Vol] 14.7 g/dL Normal 12.0-15.0 [facility] Comment on above: Order Comment: 105.1 Performed By: #### M 100.638 #### [facility] [address] [place], [address] IG% 0.300 Normal 0.0-0.9 [facility] Comment on above: Order Comment: 105.1 Result Comment: IG% - Immature Granulocytes (promyelocytes, myelocytes and metamyelocytes) > 1% indicates that a LEFT SHIFT is Present. Performed By: #### M 100.638 #### [facility] [address] [place], [address] Lymphocytes/100 WBC (Bld) 45.4 % High 19-41 [facility] Comment on above: Order Comment: 105.1 Performed By: #### M 100.638 #### [facility] [address] [place], [address] MCH (RBC) [Entitic mass] 31.7 pg Normal 27.0-32.0 [facility] Comment on above: Order Comment: 105.1 Performed By: #### M 100.638 #### [facility] [address] [place], [address] MCHC (RBC) [Mass/Vol] 32.7 g/dL Normal 32-36 [facility] Comment on above: Order Comment: 105.1 Performed By: #### M 100.638 #### [facility] [address] [place], [address] MCV (RBC) [Entitic vol] 97.0 fL Normal 81-99 [facility] Comment on above: Order Comment: 105.1 Performed By: #### M 100.638 #### [facility] [address] [place], [address] Monocytes/100 WBC (Bld) 6.8 % Normal 0-10 [facility] Comment on above: Order Comment: 105.1 Performed By: #### M 100.638 #### [facility] [address] [place], [address] Neutrophils/100 WBC (Bld) 42.7 % Low 47-70 [facility] Comment on above: Order Comment: 105.1 Performed By: #### M 100.638 #### [facility] [address] [place], [address] Nucleated RBC (Bld) [#/Vol] 0 10*3/uL Normal 0-5 [facility] Comment on above: Order Comment: 105.1 Performed By: #### M 100.638 #### [facility] [address] [place], [address] Platelet mean volume (Bld) [Entitic vol] 11.9 fL Normal 6.2-12.0 [facility] Comment on above: Order Comment: 105.1 Performed By: #### M 100.638 #### [facility] [address] [place], [address] Platelets (Bld) [#/Vol] 204 10*3/uL Normal 150-450 [facility] Comment on above: Order Comment: 105.1 Performed By: #### M 100.638 #### [facility] [address] [place], [address] RBC (Bld) [#/Vol] 4.64 10*6/uL Normal 4.2-5.4 [facility] Comment on above: Order Comment: 105.1 Performed By: #### M 100.638 #### [facility] [address] [place], [address] RDW SD 47.8 fl High 35.1-43.9 [facility] Comment on above: Order Comment: 105.1 Performed By: #### M 100.638 #### [facility] [address] [place], [address] WBC (Bld) [#/Vol] 7.0 10*3/uL Normal 4.4-11.0 [facility] Comment on above: Order Comment: 105.1 Performed By: #### M 100.638 #### [facility] [address] [place], [address] Comprehensive Metabolic Prof ilon 03-03-2025 Albumin [Mass/Vol] 3.3 g/dL Low 3.4-4.8 [facility] Comment on above: Order Comment: 105.1 Performed By: #### M 100.638 #### [facility] [address] [place], [address] Albumin/Globulin [Mass ratio] 1.1 {ratio} Normal 0.9-2.4 [facility] Comment on above: Order Comment: 105.1 Performed By: #### M 100.638 #### [facility] [address] [place], [address] ALK PHOS 57 U/L Normal 35-104 [facility] Comment on above: Order Comment: 105.1 Performed By: #### M 100.638 #### [facility] [address] [place], [address] ALT [Catalytic activity/Vol] 11 U/L Normal <=34 [facility] Comment on above: Order Comment: 105.1 Performed By: #### M 100.638 #### [facility] [address] [place], [address] AST [Catalytic activity/Vol] 26 U/L Normal <=31 [facility] Comment on above: Order Comment: 105.1 Result Comment: Hemo lysis present, Results??could be affected. ?? Performed By: #### M 100.638 #### [facility] [address] [place], [address] Bilirubin [Mass/Vol] 0.37 mg/dL Normal 0.00-1.30 [facility] Comment on above: Order Comment: 105.1 Performed By: #### M 100.638 #### [facility] [address] [place], [address] BUN/CRE 24.8 RATIO High 10-20 [facility] Comment on above: Order Comment: 105.1 Performed By: #### M 100.638 #### [facility] [address] [place], [address] Calcium [Mass/Vol] 9.0 mg/dL Normal 7.6-11.0 [facility] Comment on above: Order Comment: 105.1 Performed By: #### M 100.638 #### [facility] [address] [place], [address] Chloride [Moles/Vol] 106 mmol/L Normal 98-108 [facility] Comment on above: Order Comment: 105.1 Performed By: #### M 100.638 #### [facility] [address] [place], [address] CO2 [Moles/Vol] 25.7 mmol/L Normal 21.0-32.0 [facility] Comment on above: Order Comment: 105.1 Performed By: #### M 100.638 #### [facility] [address] [place], [address] Creatinine [Mass/Vol] 0.82 mg/dL Normal 0.70-1.20 [facility] Comment on above: Order Comment: 105.1 Performed By: #### M 100.638 #### [facility] [address] [place], [address] GAP 10 Normal 5-15 [facility] Comment on above: Order Comment: 105.1 Performed By: #### M 100.638 #### [facility] [address] [place], [address] GFR/1.73 sq M.predicted among non-blacks MDRD (S/P/Bld) [Vol rate/Area] 72 mL/min/{1.73_m2} Normal >60 [facility] Comment on above: Order Comment: 105.1 Result Comment: mL/m in/1.73m2 CKD-EPI Creatinine Equation (2020) Performed By: #### M 100.638 #### [facility] [address] [place], [address] Globulin (S) [Mass/Vol] 3.0 g/dL Normal 2.2-4.2 [facility] Comment on above: Order Comment: 105.1 Performed By: #### M 100.638 #### [facility] [address] [place], [address] Glucose [Mass/Vol] 82 mg/dL Normal 70-99 [facility] Comment on above: Order Comment: 105.1 Performed By: #### M 100.638 #### [facility] [address] [place], [address] Potassium [Moles/Vol] 4.4 mmol/L Normal 3.3-5.1 [facility] Comment on above: Order Comment: 105.1 Result Comment: Hemo lysis present, Results??could be affected. ?? Performed By: #### M 100.638 #### [facility] [address] [place], [address] Sodium [Moles/Vol] 141 mmol/L Normal 133-145 [facility] Comment on above: Order Comment: 105.1 Performed By: #### M 100.638 #### [facility] [address] [place], [address] T PROT 6.3 g/dL Normal 5.9-8.4 [facility] Comment on above: Order Comment: 105.1 Performed By: #### M 100.638 #### [facility] [address] [place], [address] Urea nitrogen [Mass/Vol] 20 mg/dL High 4-19 [facility] Comment on above: Order Comment: 105.1 Performed By: #### M 100.638 #### [facility] [address] [place], [address] Lipid Profileon 03-03-2025 CHOL:HDL 4.62 Normal [facility] Comment on above: Order Comment: 105.1 Performed By: #### M 100.638 #### [facility] [facility] [address] [place], [address] Cholesterol [Mass/Vol] 192 mg/dL Normal <=200 [facility] Comment on above: Order Comment: 105.1 Result Comment: Chol esterol level, Desirable <200 mg/dL Borderline high cholesterol 200-239 mg/dL High cholesterol >=240 mg/dL Recommendations of the NCEP Adult Treatment Panel for the following risk-cutoff thresholds for the [place] population. Performed By: #### M 100.638 #### [facility] [address] [place], [address] Cholesterol in HDL [Mass/Vol] 42 mg/dL Normal [facility] Comment on above: Order Comment: 105.1 Result Comment: Sherie onal Cholesterol Education Program (NCEP) guidelines: <40 mg/dL: Low HDL-cholesterol (major risk factor for CHD) >= 60 mg/dL: High HDL-cholesterol (negative risk factor for CHD) HDL-cholesterol is affected by a number of factors, e.g. smoking, exercise, hormones, sex and age. Performed By: #### M 100.638 #### [facility] [address] [place], [address] Cholesterol in LDL [Mass/Vol] 119 mg/dL Normal [facility] Comment on above: Order Comment: 105.1 Result Comment: Bord kldciw=152-613 mg/dL Higher Mabb=663 mg/dL or greater Performed By: #### M 100.638 #### [facility] [address] [place], [address] Cholesterol in VLDL [Mass/Vol] 31 mg/dL Normal 5-40 [facility] Comment on above: Order Comment: 105.1 Performed By: #### M 100.638 #### [facility] [address] [place], [address] Triglyceride [Mass/Vol] 155 mg/dL Normal [facility] Comment on above: Order Comment: 105.1 Result Comment: The drugs N-Acetylcysteine and Metamizole may falsely depress this assay. Normal range: <150 mg/dL Borderline High: 150-199 mg/dL High: 200-499 mg/dL Very High: >500 mg/dL Performed By: #### M 100.638 #### [facility] [address] [place], [address] Thyroid Stim Hormone (TSH)on 03-03-2025 TSH 1.250 uIU/mL Normal 0.300-4.200 [facility] Comment on above: Order Comment: 105.1 Performed By: #### M 100.638 #### [facility] [address] [place], [address] Valproic Acid (Depakene) Lev ladonna 02-16-2025 VALPROIC ACID 27 ug/mL Low 50-100 [facility] Comment on above: Order Comment: 105 Result Comment: Valp roic Acid concentrations >100 ug/mL are potentially toxic. Performed By: #### L 506.1001, L501.8100 #### [facility] [address] [place], [place], [id number] Vitamin D,25 Hydroxyon 02-16 Vitamin D 25-OH 36.9 ng/mL Normal 30-100 [facility] Comment on above: Order Comment: 105-1 Result Comment: Kerline min D Status Deficiency: <20 ng/mL (50nmol/L) Insufficiency: 20-30 ng/mL (50-75 nmol/L) Sufficiency: 30-100 ng/mL (75-250 nmol/L) Toxicity: >100 ng/mL (>250 nmol/L) Performed By: #### L 506.1001, L501.8100 #### [facility] [address] [place], [place], [id number] Absolute neutrophil countOrd ered By: Saurabh Fernandez on 12-09-2024 Neutrophils (Bld) [#/Vol] 3.7 10*3/uL 2.0-7.7 [facility] Anion gap in Serum or Plasma Ordered By: Saurabh Fernandez on 12-09-2024 Anion gap [Moles/Vol] 8 mmol/L 5- [facility] BUN/creatinine ratioOrdered By: Saurabh Fernandez on 12-09-2024 Urea nitrogen/Creatinine [Mass ratio] 21.6 mg/mg High - [facility] Basophil percentageOrdered B y: Saurabh Fernandez on 12-09-2024 Basophils/100 WBC (Bld) 0.9 % 0-1 [facility] Bilirubin, totalOrdered By: Saurabh Fernandez on 12-09-2024 Bilirubin [Mass/Vol] 0.48 mg/dL 0.00-1.30 [facility] CBC W/Diff, Automatedon - Absolute Lymph 3.12 X10 3/uL Normal 0.83-4.51 [facility] Comment on above: Order Comment: 105.1 Performed By: #### L 500.4050, L500.4100, L501.9520, L100.0100 #### [facility] [address] [place], [address] Absolute Neut 3.7 X10 3/uL Normal 2.0-7.7 [facility] Comment on above: Order Comment: 105.1 Performed By: #### L 500.4050, L500.4100, L501.9520, L100.0100 #### [facility] [address] [place], [address] Basophils/100 WBC (Bld) 0.9 % Normal 0-1 [facility] Comment on above: Order Comment: 105.1 Performed By: #### L 500.4050, L500.4100, L501.9520, L100.0100 #### [facility] [address] [place], [address] Eosinophils/100 WBC (Bld) 4.1 % Normal 0-5 [facility] Comment on above: Order Comment: 105.1 Performed By: #### L 500.4050, L500.4100, L501.9520, L100.0100 #### [facility] [address] [place], [address] Erythrocyte distribution width (RBC) [Ratio] 14.9 % High 11.6-14.6 [facility] Comment on above: Order Comment: 105.1 Performed By: #### L 500.4050, L500.4100, L501.9520, L100.0100 #### [facility] [address] [place], [address] Hematocrit (Bld) [Volume fraction] 40.3 % Normal 37-47 [facility] Comment on above: Order Comment: 105.1 Performed By: #### L 500.4050, L500.4100, L501.9520, L100.0100 #### [facility] [address] [place], [address] Hemoglobin (Bld) [Mass/Vol] 13.1 g/dL Normal 12.0-15.0 [facility] Comment on above: Order Comment: 105.1 Performed By: #### L 500.4050, L500.4100, L501.9520, L100.0100 #### [facility] [address] [place], [address] IG% 0.400 Normal 0.0-0.9 [facility] Comment on above: Order Comment: 105.1 Result Comment: IG% - Immature Granulocytes (promyelocytes, myelocytes and metamyelocytes) > 1% indicates that a LEFT SHIFT is Present. Performed By: #### L 500.4050, L500.4100, L501.9520, L100.0100 #### [facility] [address] [place], [address] Lymphocytes/100 WBC (Bld) 39.9 % Normal 19-41 [facility] Comment on above: Order Comment: 105.1 Performed By: #### L 500.4050, L500.4100, L501.9520, L100.0100 #### [facility] [address] [place], [address] MCH (RBC) [Entitic mass] 32.1 pg High 27.0-32.0 [facility] Comment on above: Order Comment: 105.1 Performed By: #### L 500.4050, L500.4100, L501.9520, L100.0100 #### [facility] [address] [place], [address] MCHC (RBC) [Mass/Vol] 32.5 g/dL Normal 32-36 [facility] Comment on above: Order Comment: 105.1 Performed By: #### L 500.4050, L500.4100, L501.9520, L100.0100 #### [facility] [address] [place], [address] MCV (RBC) [Entitic vol] 98.8 fL Normal 81-99 [facility] Comment on above: Order Comment: 105.1 Performed By: #### L 500.4050, L500.4100, L501.9520, L100.0100 #### [facility] [address] [place], [address] Monocytes/100 WBC (Bld) 7.0 % Normal 0-10 [facility] Comment on above: Order Comment: 105.1 Performed By: #### L 500.4050, L500.4100, L501.9520, L100.0100 #### [facility] [address] [place], [address] Neutrophils/100 WBC (Bld) 47.7 % Normal 47-70 [facility] Comment on above: Order Comment: 105.1 Performed By: #### L 500.4050, L500.4100, L501.9520, L100.0100 #### [facility] [address] [place], [address] Nucleated RBC (Bld) [#/Vol] 0 10*3/uL Normal 0-5 [facility] Comment on above: Order Comment: 105.1 Performed By: #### L 500.4050, L500.4100, L501.9520, L100.0100 #### [facility] [address] [place], [address] Platelet mean volume (Bld) [Entitic vol] 11.4 fL Normal 6.2-12.0 [facility] Comment on above: Order Comment: 105.1 Performed By: #### L 500.4050, L500.4100, L501.9520, L100.0100 #### [facility] [address] [place], [address] Platelets (Bld) [#/Vol] 160 10*3/uL Normal 150-450 [facility] Comment on above: Order Comment: 105.1 Performed By: #### L 500.4050, L500.4100, L501.9520, L100.0100 #### [facility] [address] [place], [address] RBC (Bld) [#/Vol] 4.08 10*6/uL Low 4.2-5.4 [facility] Comment on above: Order Comment: 105.1 Performed By: #### L 500.4050, L500.4100, L501.9520, L100.0100 #### [facility] [address] [place], [address] RDW SD 54.3 fl High 35.1-43.9 [facility] Comment on above: Order Comment: 105.1 Performed By: #### L 500.4050, L500.4100, L501.9520, L100.0100 #### [facility] [address] [place], [address] WBC (Bld) [#/Vol] 7.8 10*3/uL Normal 4.4-11.0 [facility] Comment on above: Order Comment: 105.1 Performed By: #### L 500.4050, L500.4100, L501.9520, L100.0100 #### [facility] [address] [place], [address] Calculated very low density lipoprotein (VLDL) cholesterol measurementOrdered By: Saurabh Fernandez on 12-09-2024 VLDL Cholesterol 36 mg/dL 5-40 [facility] Carbon dioxide, total [Moles /volume] in Central venous bloodOrdered By: Saurabh Fernandez on 12-09-2024 CO2 [Moles/Vol] 28.8 mmol/L 21.0-32.0 [facility] Chloride assayOrdered By: Nieto on 12-09-2024 Chloride [Moles/Vol] 106 mmol/L 98-108 [facility] Metabolic Prof ilon 12-09-2024 Albumin [Mass/Vol] 3.3 g/dL Low 3.4-4.8 [facility] Comment on above: Order Comment: 105.1 Performed By: #### L 500.4050, L500.4100, L501.9520, L100.0100 #### [facility] [address] [place], [address] Albumin/Globulin [Mass ratio] 1.1 {ratio} Normal 0.9-2.4 [facility] Comment on above: Order Comment: 105.1 Performed By: #### L 500.4050, L500.4100, L501.9520, L100.0100 #### [facility] [address] [place], [address] ALK PHOS 62 U/L Normal 35-104 [facility] Comment on above: Order Comment: 105.1 Performed By: #### L 500.4050, L500.4100, L501.9520, L100.0100 #### [facility] [address] [place], [address] ALT [Catalytic activity/Vol] 11 U/L Normal <=34 [facility] Comment on above: Order Comment: 105.1 Performed By: #### L 500.4050, L500.4100, L501.9520, L100.0100 #### [facility] [address] [place], [address] AST [Catalytic activity/Vol] 17 U/L Normal <=31 [facility] Comment on above: Order Comment: 105.1 Performed By: #### L 500.4050, L500.4100, L501.9520, L100.0100 #### [facility] [address] [place], [address] Bilirubin [Mass/Vol] 0.48 mg/dL Normal 0.00-1.30 [facility] Comment on above: Order Comment: 105.1 Performed By: #### L 500.4050, L500.4100, L501.9520, L100.0100 #### [facility] [address] [place], [address] BUN/CRE 21.6 RATIO High 10-20 [facility] Comment on above: Order Comment: 105.1 Performed By: #### L 500.4050, L500.4100, L501.9520, L100.0100 #### [facility] [address] [place], [address] Calcium [Mass/Vol] 8.9 mg/dL Normal 7.6-11.0 [facility] Comment on above: Order Comment: 105.1 Performed By: #### L 500.4050, L500.4100, L501.9520, L100.0100 #### [facility] [address] [place], [address] Chloride [Moles/Vol] 106 mmol/L Normal 98-108 [facility] Comment on above: Order Comment: 105.1 Performed By: #### L 500.4050, L500.4100, L501.9520, L100.0100 #### [facility] [address] [place], [address] CO2 [Moles/Vol] 28.8 mmol/L Normal 21.0-32.0 [facility] Comment on above: Order Comment: 105.1 Performed By: #### L 500.4050, L500.4100, L501.9520, L100.0100 #### [facility] [address] [place], [address] Creatinine [Mass/Vol] 0.73 mg/dL Normal 0.70-1.20 [facility] Comment on above: Order Comment: 105.1 Performed By: #### L 500.4050, L500.4100, L501.9520, L100.0100 #### [facility] [address] [place], [address] GAP 8 Normal 5-15 [facility] Comment on above: Order Comment: 105.1 Performed By: #### L 500.4050, L500.4100, L501.9520, L100.0100 #### [facility] [address] [place], [address] GFR/1.73 sq M.predicted among non-blacks MDRD (S/P/Bld) [Vol rate/Area] 82 mL/min/{1.73_m2} Normal >60 [facility] Comment on above: Order Comment: 105.1 Result Comment: mL/m in/1.73m2 CKD-EPI Creatinine Equation (2020) Performed By: #### L 500.4050, L500.4100, L501.9520, L100.0100 #### [facility] [address] [place], [address] Globulin (S) [Mass/Vol] 3.0 g/dL Normal 2.2-4.2 [facility] Comment on above: Order Comment: 105.1 Performed By: #### L 500.4050, L500.4100, L501.9520, L100.0100 #### [facility] [address] [place], [address] Glucose [Mass/Vol] 85 mg/dL Normal 70-99 [facility] Comment on above: Order Comment: 105.1 Performed By: #### L 500.4050, L500.4100, L501.9520, L100.0100 #### [facility] [address] [place], [address] Potassium [Moles/Vol] 4.4 mmol/L Normal 3.3-5.1 [facility] Comment on above: Order Comment: 105.1 Performed By: #### L 500.4050, L500.4100, L501.9520, L100.0100 #### [facility] [address] [place], [address] Sodium [Moles/Vol] 142 mmol/L Normal 133-145 [facility] Comment on above: Order Comment: 105.1 Performed By: #### L 500.4050, L500.4100, L501.9520, L100.0100 #### [facility] [address] [place], [address] T PROT 6.3 g/dL Normal 5.9-8.4 [facility] Comment on above: Order Comment: 105.1 Performed By: #### L 500.4050, L500.4100, L501.9520, L100.0100 #### [facility] [address] [place], [address] Urea nitrogen [Mass/Vol] 16 mg/dL Normal 4-19 [facility] Comment on above: Order Comment: 105.1 Performed By: #### L 500.4050, L500.4100, L501.9520, L100.0100 #### [facility] [address] [place], [address] Eosinophil percentageOrdered By: Saurabh Fernandez on 12-09-2024 Eosinophils/100 WBC (Bld) 4.1 % 0-5 [facility] Erythrocyte distribution wid th (RBC) [Ratio]Ordered By: Saurabh Fernandez on 12-09-2024 Erythrocyte distribution width (RBC) [Entitic vol] 54.3 fL High 35.1-43.9 [facility] Erythrocyte distribution wid th ratioOrdered By: Saurabh Fernandez on 12-09-2024 Erythrocyte distribution width (RBC) [Ratio] 14.9 % High 11.6-14.6 [facility] GFR/1.73 sq M.predicted layne g non-blacks MDRD (S/P/Bld) [Vol rate/Area]Ordered By: Saurabh Fernandez on 12-09-2024 Estimated GFR (MDRD) Non-Af Amer 82 >60 [facility] Comment on above: mL/min/1.73m2 CKD-EP I Creatinine Equation (2020) Hematocrit Auto (Bld) [Volum e fraction]Ordered By: Saurabh Fernandez on 12-09-2024 Hematocrit (Bld) [Volume fraction] 40.3 % 37-47 [facility] Hemoglobin measurementOrdere d By: Saurabh Fernandez on 12-09-2024 Hemoglobin (Bld) [Mass/Vol] 13.1 g/dL 12.0-15.0 [facility] Immature granulocytes/100 WB C Auto (Bld)Ordered By: Saurabh Fernandez on 12-09-2024 Immature granulocytes/100 WBC (Bld) 0.400 % 0.0-0.9 [facility] Comment on above: IG% - Immature Granu locytes (promyelocytes, myelocytes and metamyelocytes) > 1% indicates that a LEFT SHIFT is Present. LDL calc ser/plasOrdered By: Saurabh Fernandez on 12-09-2024 LDL Cholesterol, Calculated 120 mg/dL [facility] Comment on above: Ndkhdtgejm=385-165 m g/dL & Higher Xtkm=082 mg/dL or greater Laboratory - Chemistry and C hemistry - challengeOrdered By: Saurabh Fernandez on 12-09-2024 AST [Catalytic activity/Vol] 17 U/L <32 [facility] Lipid Profileon 12-09-2024 CHOL:HDL 4.34 Normal [facility] Comment on above: Order Comment: 105.1 Performed By: #### L 500.4050, L500.4100, L501.9520, L100.0100 #### [facility] [address] [facility] [place], [address] Cholesterol [Mass/Vol] 203 mg/dL High <=200 [facility] Comment on above: Order Comment: 105.1 Result Comment: Chol esterol level, Desirable <200 mg/dL Borderline high cholesterol 200-239 mg/dL High cholesterol >=240 mg/dL Recommendations of the NCEP Adult Treatment Panel for the following risk-cutoff thresholds for the [place] population. Performed By: #### L 500.4050, L500.4100, L501.9520, L100.0100 #### [facility] [address] [place], [address] Cholesterol in HDL [Mass/Vol] 47 mg/dL Normal [facility] Comment on above: Order Comment: 105.1 Result Comment: Sherie onal Cholesterol Education Program (NCEP) guidelines: <40 mg/dL: Low HDL-cholesterol (major risk factor for CHD) >= 60 mg/dL: High HDL-cholesterol (negative risk factor for CHD) HDL-cholesterol is affected by a number of factors, e.g. smoking, exercise, hormones, sex and age. Performed By: #### L 500.4050, L500.4100, L501.9520, L100.0100 #### [facility] [address] [place], [address] Cholesterol in LDL [Mass/Vol] 120 mg/dL Normal [facility] Comment on above: Order Comment: 105.1 Result Comment: Bord qohjcn=645-371 mg/dL Higher Akls=634 mg/dL or greater Performed By: #### L 500.4050, L500.4100, L501.9520, L100.0100 #### [facility] [address] [place], [address] Cholesterol in VLDL [Mass/Vol] 36 mg/dL Normal 5-40 [facility] Comment on above: Order Comment: 105.1 Performed By: #### L 500.4050, L500.4100, L501.9520, L100.0100 #### [facility] [address] [place], [address] Triglyceride [Mass/Vol] 180 mg/dL Normal [facility] Comment on above: Order Comment: 105.1 Result Comment: The drugs N-Acetylcysteine and Metamizole may falsely depress this assay. Normal range: <150 mg/dL Borderline High: 150-199 mg/dL High: 200-499 mg/dL Very High: >500 mg/dL Performed By: #### L 500.4050, L500.4100, L501.9520, L100.0100 #### [facility] [address] [place], [address] Lymphocytes Auto (Unsp spec) [#/Vol]Ordered By: Saurabh Fernandez on 12-09-2024 Lymphocytes (Bld) [#/Vol] 3.12 10*3/uL 0.83-4.51 [facility] Lymphocytes/100 WBC Auto (Un sp spec)Ordered By: Saurabh Fernandez on 12-09-2024 Lymphocytes/100 WBC (Bld) 39.9 % 19-41 [facility] MCV (mean corpuscular volume ) determinationOrdered By: Saurabh Fernandez on 12-09-2024 MCV (RBC) [Entitic vol] 98.8 fL 81-99 [facility] Mean corpuscular hemoglobin (MCH) determinationOrdered By: Saurabh Fernandez on 12-09-2024 MCH (RBC) [Entitic mass] 32.1 pg High 27.0-32.0 [facility] Mean corpuscular hemoglobin concentration (MCHC) determinationOrdered By: Saurabh Fernandez on 12-09-2024 MCHC (RBC) [Mass/Vol] 32.5 g/dL 32-36 [facility] Mean platelet volume determi nationOrdered By: Saurabh Fernandez on 12-09-2024 Platelet mean volume (Bld) [Entitic vol] 11.4 fL 6.2-12.0 [facility] Monocyte percentageOrdered B y: Saurabh Fernandez on 12-09-2024 Monocytes/100 WBC (Bld) 7.0 % 0-10 [facility] Neutrophil percentageOrdered By: Saurabh Fernandez on 12-09-2024 Neutrophils/100 WBC (Bld) 47.7 % 47-70 [facility] Nucleated red blood cell per centageOrdered By: Saurabh Fernandez on 12-09-2024 Nucleated RBC/100 WBC (Bld) [Ratio] 0 % 0-5 [facility] Platelet countOrdered By: Nieto on 12-09-2024 Platelets (Bld) [#/Vol] 160 10*3/uL 150-450 [facility] Potassium (Unsp spec) [Mass/ Vol]Ordered By: Saurabh Fernandez on 12-09-2024 Potassium [Moles/Vol] 4.4 mmol/L 3.3-5.1 [facility] RBC Auto (Bld) [#/Vol]Ordere d By: Saurabh Fernandez on 12-09-2024 RBC (Bld) [#/Vol] 4.08 10*6/uL Low 4.2-5.4 [facility] Screening total cholesterol/ high density lipoprotein (HDL) cholesterol ratioOrdered By: Saurabh Fernandez on 12-09-2024 Cholesterol.total/Chol esterol in HDL [Mass ratio] 4.34 {ratio} [facility] Serum creatinine measurement (mass/volume)Ordered By: Saurabh Fernandez on 12-09-2024 Creatinine [Mass/Vol] 0.73 mg/dL 0.70-1.20 [facility] Serum globulin measurementOr dered By: Saurabh Fernandez on 12-09-2024 Globulin (S) [Mass/Vol] 3.0 g/dL 2.2-4.2 [facility] Serum glucose measurement (m ass/volume)Ordered By: Saurabh Fernandez on 12-09-2024 Glucose [Mass/Vol] 85 mg/dL 70-99 [facility] Serum or plasma alanine macedo otransferase (ALT) measurementOrdered By: Saurabh Fernandez on 12-09-2024 ALT [Catalytic activity/Vol] 11 U/L <35 [facility] Serum or plasma albumin tyrese urement (mass/volume)Ordered By: Saurabh Fernandez on 12-09-2024 Albumin [Mass/Vol] 3.3 g/dL Low 3.4-4.8 [facility] Serum or plasma albumin/glob ulin mass ratioOrdered By: Saurabh Fernandez on 12-09-2024 Albumin/Globulin [Mass ratio] 1.1 {ratio} 0.9-2.4 [facility] Serum or plasma alkaline elia sphatase measurementOrdered By: Saurabh Fernandez on 12-09-2024 ALP [Catalytic activity/Vol] 62 U/L 35-104 [facility] Serum or plasma calcium tyrese urement (mass/volume)Ordered By: Saurabh Fernandez on 12-09-2024 Calcium [Mass/Vol] 8.9 mg/dL 7.6-11.0 [facility] Serum or plasma cholesterol in HDL measurement (mass/volume)Ordered By: Saurabh Fernandez on 12-09-2024 Cholesterol in HDL [Mass/Vol] 47 mg/dL >40 [facility] Comment on above: National Cholesterol Education Program (NCEP) guidelines:<40 mg/dL: Low HDL-cholesterol (major risk factor for CHD)>= 60 mg/dL: High HDL-cholesterol (negative risk factor for CHD)HDL-cholesterol is affected by a number of factors, e.g. smoking, exercise, hormones, sex and age. Serum or plasma cholesterol measurement (mass/volume)Ordered By: Saurabh Fernandez on 12-09-2024 Cholesterol [Mass/Vol] 203 mg/dL High <201 [facility] Comment on above: Cholesterol level, D esirable <200 mg/dLBorderline high cholesterol 200-239 mg/dLHigh cholesterol >=240 mg/dLRecommendations of the NCEP Adult Treatment Panel for the following risk-cutoff thresholds for the [place] population. Serum or plasma urea nitroge n measurement (mass/volume)Ordered By: Saurabh Fernandez on 12-09-2024 Urea nitrogen [Mass/Vol] 16 mg/dL 4-19 [facility] Sodium levelOrdered By: Saurabh Fernandez on 12-09-2024 Sodium [Moles/Vol] 142 mmol/L 133-145 [facility] TSH DL <= 0.005 mIU/L QnOrde red By: Saurabh Fernnadez on 12-09-2024 Thyroid Stimulating Hormone (TSH) 2.930 uIU/mL 0.300-4.200 [facility] Thyroid Stim Hormone (TSH)on 12-09-2024 TSH 2.930 uIU/mL Normal 0.300-4.200 [facility] Comment on above: Order Comment: 105.1 Performed By: #### L 500.4050, L500.4100, L501.9520, L100.0100 #### [facility] [address] [place], [address] Total proteinOrdered By: Ambreen Fernandez on 12-09-2024 Protein [Mass/Vol] 6.3 g/dL 5.9-8.4 [facility] Triglycerides measurementOrd ered By: Saurabh Fernandez on 12-09-2024 Triglyceride [Mass/Vol] 180 mg/dL <199 [facility] Comment on above: The drugs N-Acetylcy steine and Metamizole may falsely depress this assay. Normal range: <150 mg/dLBorderline High: 150-199 mg/dLHigh: 200-499 mg/dLVery High: >500 mg/dL White blood cell (WBC) count Ordered By: Saurabh Fernandez on 12-09-2024 WBC (Bld) [#/Vol] 7.8 10*3/uL 4.4-11.0 [facility] L506.1001on 11-22-2024 Vitamin D 25-OH 45.2 ng/mL Normal 30-100 [facility] Comment on above: Order Comment: 105.1 Result Comment: Kerline min D Status Deficiency: <20 ng/mL (50nmol/L) Insufficiency: 20-30 ng/mL (50-75 nmol/L) Sufficiency: 30-100 ng/mL (75-250 nmol/L) Toxicity: >100 ng/mL (>250 nmol/L) Performed By: #### M 100.638 #### [facility] [address] [place], [place], [address] Valproate [Mass/Vol]Ordered By: Saurabh Fernandez on 11-22-2024 Valproic Acid (Depakene) Level 20 ug/mL Low 50-100 [facility] Comment on above: Valproic Acid concen trations >100 ug/mL are potentially toxic. Valproic Acid (Depakene) Lev ladonna 11-22-2024 VALPROIC ACID 20 ug/mL Low 50-100 [facility] Comment on above: Order Comment: 105.1 Result Comment: Valp roic Acid concentrations >100 ug/mL are potentially toxic. Performed By: #### M 100.638 #### [facility] [address] [place], [place], [id number] Vitamin D, 25-hydroxyOrdered By: Saurabh Fernandez on 11-22-2024 Vitamin D 25-Hydroxy 45.2 ng/mL 30-100 [facility] Comment on above: Vitamin D StatusDefi ciency: <20 ng/mL (50nmol/L)Insufficiency: 20-30 ng/mL (50-75 nmol/L)Sufficiency: 30-100 ng/mL (75-250 nmol/L)Toxicity: >100 ng/mL (>250 nmol/L) BUN/creatinine ratioOrdered By: Saurabh Fernandez on 11-17-2024 Urea nitrogen/Creatinine [Mass ratio] 27.0 mg/mg High [facility]20 [facility] Basic Metabolic Profile (BMP )on 11-17-2024 BUN/CRE 27.0 RATIO High [facility] Comment on above: Order Comment: 105-1 Performed By: #### M 100.638 #### [facility] [address] [place], [address] GFR/1.73 sq M.predicted among non-blacks MDRD (S/P/Bld) [Vol rate/Area] 78 mL/min/{1.73_m2} Normal >60 [facility] Comment on above: Order Comment: 105-1 Result Comment: mL/m in/1.73m2 CKD-EPI Creatinine Equation (2020) Performed By: #### M 100.638 #### [facility] [address] [place], [place], [id number] Carbon dioxide measurementOr dered By: Saurabh Fernandez on 11-17-2024 CO2 [Moles/Vol] 25.7 mmol/L Normal 22.0-29.0 [facility] Comment on above: Order Comment: 105-1 Performed By: #### M 100.638 #### [facility] [address] [place], [address] Chloride measurementOrdered By: Saurabh Fernandez on 11-17-2024 Chloride [Moles/Vol] 107 mmol/L Normal 96-108 [facility] Comment on above: Order Comment: 105-1 Performed By: #### M 100.638 #### [facility] [address] [place], [address] GFR/1.73 sq M.predicted layne g non-blacks MDRD (S/P/Bld) [Vol rate/Area]Ordered By: Saurabh Fernandez on 11-17-2024 Estimated GFR (MDRD) Non-Af Amer 78 >60 [facility] Comment on above: mL/min/1.73m2 CKD-EP I Creatinine Equation (2020) Serum glucose measurement (m ass/volume)Ordered By: Saurabh Fernandez on 11-17-2024 Glucose [Mass/Vol] 83 mg/dL Normal 70-99 [facility] Comment on above: Order Comment: 105-1 Performed By: #### M 100.638 #### [facility] [address] [place], [address] Serum or plasma anion gap de termination (moles/volume)Ordered By: Saurabh Fernandez on 11-17-2024 Anion gap [Moles/Vol] 9 mmol/L Normal 5-15 [facility] Comment on above: Order Comment: 105-1 Performed By: #### M 100.638 #### [facility] [address] [place], [address] Serum or plasma calcium tyrese urement (mass/volume)Ordered By: Saurabh Fernandez on 11-17-2024 Calcium [Mass/Vol] 8.4 mg/dL Normal 7.6-11.0 [facility] Comment on above: Order Comment: 105-1 Performed By: #### M 100.638 #### [facility] [address] [place], [address] Serum or plasma creatinine m easurement (moles/volume)Ordered By: Saurabh Fernandez on 11-17-2024 Creatinine [Mass/Vol] 0.8 mg/dL Normal 0.6-1.0 [facility] Comment on above: Order Comment: 105-1 Performed By: #### M 100.638 #### [facility] [address] [place], [address] Serum or plasma potassium me asurementOrdered By: Saurabh Fernandez on 11-17-2024 Potassium [Moles/Vol] 4.5 mmol/L Normal 3.3-5.1 [facility] Comment on above: Hemolysis present, R esults could be affected. Order Comment: 105-1 Result Comment: Hemo lysis present, Results??could be affected. ?? Performed By: #### M 100.638 #### [facility] [address] [place], [address] Serum or plasma sodium measu rement (moles/volume)Ordered By: Saurabh Fernandez on 11-17-2024 Sodium [Moles/Vol] 141 mmol/L Normal 133-145 [facility] Comment on above: Order Comment: 105-1 Performed By: #### M 100.638 #### [facility] [address] [place], [address] Serum or plasma urea nitroge n measurement (mass/volume)Ordered By: Saurabh Fernandez on 11-17-2024 Urea nitrogen [Mass/Vol] 21 mg/dL High 4-19 [facility] Comment on above: Order Comment: 105-1 Performed By: #### M 100.638 #### [facility] [address] [place], [address] Basic Metabolic Profile (BMP )on 11-10-2024 BUN/CRE 27.0 RATIO High 10-20 [facility] Comment on above: Order Comment: 105.1 Performed By: #### L 500.2500, L100.0500 #### [facility] [address] [place], [address] CA,Total 8.7 mg/dL Normal 8.5-10.1 [facility] Comment on above: Order Comment: 105.1 Performed By: #### L 500.2500, L100.0500 #### [facility] [address] [place], [address] Chloride [Moles/Vol] 118 mmol/L High 98-107 [facility] Comment on above: Order Comment: 105.1 Performed By: #### L 500.2500, L100.0500 #### [facility] [address] [place], [address] CO2 [Moles/Vol] 31.0 mmol/L Normal 21.0-32.0 [facility] Comment on above: Order Comment: 105.1 Performed By: #### L 500.2500, L100.0500 #### [facility] [address] [place], [address] Creatinine [Mass/Vol] 0.81 mg/dL Normal 0.55-1.02 [facility] Comment on above: Order Comment: 105.1 Result Comment: The validity of the calculated GFR GFRAA in patients over 70 years has not been determined. Clinical correlation is essential. Performed By: #### L 500.2500, L100.0500 #### [facility] [address] [place], [address] EST GFR - AA 87 mL/min Normal >60 [facility] Comment on above: Order Comment: 105.1 Result Comment: Afri can Montserratian GFR Calc Performed By: #### L 500.2500, L100.0500 #### [facility] [address] [place], [address] GAP 2 Low 5-15 [facility] Comment on above: Order Comment: 105.1 Performed By: #### L 500.2500, L100.0500 #### [facility] [address] [place], [address] GFR/1.73 sq M.predicted among non-blacks MDRD (S/P/Bld) [Vol rate/Area] 72 mL/min/{1.73_m2} Normal >60 [facility] Comment on above: Order Comment: 105.1 Result Comment: Non- GFR Calc Performed By: #### L 500.2500, L100.0500 #### [facility] [address] [place], [address] Glucose [Mass/Vol] 96 mg/dL Normal 74-106 [facility] Comment on above: Order Comment: 105.1 Performed By: #### L 500.2500, L100.0500 #### [facility] [address] [place], [address] Potassium [Moles/Vol] 3.9 mmol/L Normal 3.5-5.1 [facility] Comment on above: Order Comment: 105.1 Performed By: #### L 500.2500, L100.0500 #### [facility] [address] [place], [address] Sodium [Moles/Vol] 151 mmol/L High 136-145 [facility] Comment on above: Order Comment: 105.1 Performed By: #### L 500.2500, L100.0500 #### [facility] [address] [place], [address] Urea nitrogen [Mass/Vol] 22 mg/dL High 7-18 [facility] Comment on above: Order Comment: 105.1 Performed By: #### L 500.2500, L100.0500 #### [facility] [address] [place], [address] Blood urea nitrogen (BUN)/cr eatinine ratioOrdered By: Saurabh Fernandez on 11-10-2024 Urea nitrogen/Creatinine [Mass ratio] 27.0 mg/mg High 10-20 [facility] CBC-Complete Blood Cnt No Di ffon 11-10-2024 Erythrocyte distribution width (RBC) [Ratio] 14.4 % Normal 11.6-14.6 [facility] Comment on above: Order Comment: 105.1 Performed By: #### L 500.2500, L100.0500 #### [facility] [address] [place], [address] Hematocrit (Bld) [Volume fraction] 41.3 % Normal 37-47 [facility] Comment on above: Order Comment: 105.1 Performed By: #### L 500.2500, L100.0500 #### [facility] [address] [place], [address] Hemoglobin (Bld) [Mass/Vol] 12.5 g/dL Normal 12.0-15.0 [facility] Comment on above: Order Comment: 105.1 Performed By: #### L 500.2500, L100.0500 #### [facility] [address] [place], [address] MCH (RBC) [Entitic mass] 30.9 pg Normal 27.0-32.0 [facility] Comment on above: Order Comment: 105.1 Performed By: #### L 500.2500, L100.0500 #### [facility] [address] [place], [address] MCHC (RBC) [Mass/Vol] 30.3 g/dL Low 32-36 [facility] Comment on above: Order Comment: 105.1 Performed By: #### L 500.2500, L100.0500 #### [facility] [address] [place], [address] MCV (RBC) [Entitic vol] 102.0 fL High 81-99 [facility] Comment on above: Order Comment: 105.1 Performed By: #### L 500.2500, L100.0500 #### [facility] [address] [place], [address] Platelet mean volume (Bld) [Entitic vol] 10.0 fL Normal 6.2-12.0 [facility] Comment on above: Order Comment: 105.1 Performed By: #### L 500.2500, L100.0500 #### [facility] [address] [place], [address] Platelets (Bld) [#/Vol] 351 10*3/uL Normal 150-450 [facility] Comment on above: Order Comment: 105.1 Performed By: #### L 500.2500, L100.0500 #### [facility] [address] [place], [address] RBC (Bld) [#/Vol] 4.05 10*6/uL Low 4.2-5.4 [facility] Comment on above: Order Comment: 105.1 Performed By: #### L 500.2500, L100.0500 #### [facility] [address] [place], [address] RDW SD 53.7 fl High 35.1-43.9 [facility] Comment on above: Order Comment: 105.1 Performed By: #### L 500.2500, L100.0500 #### [facility] [address] [place], [address] WBC (Bld) [#/Vol] 8.5 10*3/uL Normal 4.4-11.0 [facility] Comment on above: Order Comment: 105.1 Performed By: #### L 500.2500, L100.0500 #### [facility] [address] [place], [address] Carbon dioxide measurementOr dered By: Saurabh Fernandez on 11-10-2024 CO2 [Moles/Vol] 31.0 mmol/L 21.0-32.0 [facility] Chloride measurementOrdered By: Saurabh Fernandez on 11-10-2024 Chloride [Moles/Vol] 118 mmol/L High 98-107 [facility] Erythrocyte distribution wid th (RBC) [Ratio]Ordered By: Saurabh Fernandez on 11-10-2024 Erythrocyte distribution width (RBC) [Entitic vol] 53.7 fL High 35.1-43.9 [facility] Erythrocyte distribution wid th ratioOrdered By: Saurabh Fernandez on 11-10-2024 Erythrocyte distribution width (RBC) [Ratio] 14.4 % 11.6-14.6 [facility] Estimated glomerular filtrat ion rate (GFR) AmericanOrdered By: Saurabh Fernandez on 11-10-2024 Estimated GFR (MDRD) Amer 87 mL/min >60 [facility] Comment on above: GFR Calc Glomerular filtration rate ( GFR) estimationOrdered By: Saurabh Fernandez on 11-10-2024 Estimated GFR (MDRD) Non-Af Amer 72 mL/min >60 [facility] Comment on above: Non- GFR Calc Glucose measurementOrdered B y: Saurabh Fernandez on 11-10-2024 Glucose [Mass/Vol] 96 mg/dL 74-106 [facility] Hematocrit Auto (Bld) [Volum e fraction]Ordered By: Saurabh Fernandez on 11-10-2024 Hematocrit (Bld) [Volume fraction] 41.3 % 37-47 [facility] Hemoglobin measurementOrdere d By: Saurahb Fernandez on 11-10-2024 Hemoglobin (Bld) [Mass/Vol] 12.5 g/dL 12.0-15.0 [facility] MCV (mean corpuscular volume ) determinationOrdered By: Saurabh Fernandez on 11-10-2024 MCV (RBC) [Entitic vol] 102.0 fL High 81-99 [facility] Mean corpuscular hemoglobin (MCH) determinationOrdered By: Saurabh Fernandez on 11-10-2024 MCH (RBC) [Entitic mass] 30.9 pg 27.0-32.0 [facility] Mean corpuscular hemoglobin concentration (MCHC) determinationOrdered By: Saurabh Fernandez on 11-10-2024 MCHC (RBC) [Mass/Vol] 30.3 g/dL Low 32-36 [facility] Mean platelet volume determi nationOrdered By: Saurabh Fernandez on 11-10-2024 Platelet mean volume (Bld) [Entitic vol] 10.0 fL 6.2-12.0 [facility] Platelet countOrdered By: Nieto on 11-10-2024 Platelets (Bld) [#/Vol] 351 10*3/uL 150-450 [facility] Potassium measurementOrdered By: Saurabh Fernandez on 11-10-2024 Potassium [Moles/Vol] 3.9 mmol/L 3.5-5.1 [facility] RBC Auto (Bld) [#/Vol]Ordere d By: Saurabh Fernandez on 11-10-2024 RBC (Bld) [#/Vol] 4.05 10*6/uL Low 4.2-5.4 [facility] Serum anion gap measurementO rdered By: Saurabh Fernandez on 11-10-2024 Anion gap [Moles/Vol] 2 mmol/L Low 5-15 [facility] Serum or plasma calcium tyrese urement (mass/volume)Ordered By: Saurabh Fernandez on 11-10-2024 Calcium [Mass/Vol] 8.7 mg/dL 8.5-10.1 [facility] Serum or plasma creatinine m easurement (mass/volume)Ordered By: Saurabh Fernandez on 11-10-2024 Creatinine [Mass/Vol] 0.81 mg/dL 0.55-1.02 [facility] Comment on above: The validity of the calculated GFR & GFRAA in patients over 70 years has not been determined. Clinical correlation is essential. Serum or plasma urea nitroge n measurement (mass/volume)Ordered By: Saurabh Fernandez on 11-10-2024 Urea nitrogen [Mass/Vol] 22 mg/dL High 7-18 [facility] Sodium levelOrdered By: Saurabh Fernandez on 11-10-2024 Sodium [Moles/Vol] 151 mmol/L High 136-145 [facility] White blood cell (WBC) count Ordered By: Saurabh Fernandez on 11-10-2024 WBC (Bld) [#/Vol] 8.5 10*3/uL 4.4-11.0 [facility] Absolute neutrophil countOrd ered By: Saurabh Fernandez on 09-16-2024 Neutrophils (Bld) [#/Vol] 3.3 10*3/uL 2.0-7.7 [facility] Albumin to globulin ratioOrd ered By: Saurabh Fernandez on 09-16-2024 Albumin/Globulin [Mass ratio] 0.7 {ratio} Low 0.9-2.4 [facility] Basophil percentageOrdered B y: Saurabh Fernandez on 09-16-2024 Basophils/100 WBC (Bld) 1.0 % 0-1 [facility] Bilirubin, totalOrdered By: Saurabh Fernandez on 09-16-2024 Bilirubin [Mass/Vol] 0.50 mg/dL 0.20-1.00 [facility] Comment on above: For patients on eltr ombopag therapy, use of Dimension [place] TBIL is not recommended. Blood urea nitrogen (BUN)/cr eatinine ratioOrdered By: Saurabh Fernandez on 09-16-2024 Urea nitrogen/Creatinine [Mass ratio] 30.8 mg/mg High 10-20 [facility] CBC W/Diff, Automatedon 08-23 Absolute Lymph 3.46 X10 3/uL Normal 0.83-4.51 [facility] Comment on above: Order Comment: 105.1 Performed By: #### L 500.2500, L100.0500 #### [facility] [address] [place], [address] Absolute Neut 3.3 X10 3/uL Normal 2.0-7.7 [facility] Comment on above: Order Comment: 105.1 Performed By: #### L 500.2500, L100.0500 #### [facility] [address] [place], [address] Basophils/100 WBC (Bld) 1.0 % Normal 0-1 [facility] Comment on above: Order Comment: 105.1 Performed By: #### L 500.2500, L100.0500 #### [facility] [address] [place], [address] Eosinophils/100 WBC (Bld) 4.6 % Normal 0-5 [facility] Comment on above: Order Comment: 105.1 Performed By: #### L 500.2500, L100.0500 #### [facility] [address] [place], [address] Erythrocyte distribution width (RBC) [Ratio] 13.3 % Normal 11.6-14.6 [facility] Comment on above: Order Comment: 105.1 Performed By: #### L 500.2500, L100.0500 #### [facility] [address] [place], [address] Hematocrit (Bld) [Volume fraction] 46.4 % Normal 37-47 [facility] Comment on above: Order Comment: 105.1 Performed By: #### L 500.2500, L100.0500 #### [facility] [address] [place], [address] Hemoglobin (Bld) [Mass/Vol] 15.0 g/dL Normal 12.0-15.0 [facility] Comment on above: Order Comment: 105.1 Performed By: #### L 500.2500, L100.0500 #### [facility] [address] [place], [address] IG% 0.400 Normal 0.0-0.9 [facility] Comment on above: Order Comment: 105.1 Result Comment: IG% - Immature Granulocytes (promyelocytes, myelocytes and metamyelocytes) > 1% indicates that a LEFT SHIFT is Present. Performed By: #### L 500.2500, L100.0500 #### [facility] [address] [place], [address] Lymphocytes/100 WBC (Bld) 44.1 % High 19-41 [facility] Comment on above: Order Comment: 105.1 Performed By: #### L 500.2500, L100.0500 #### [facility] [address] [place], [address] MCH (RBC) [Entitic mass] 32.1 pg High 27.0-32.0 [facility] Comment on above: Order Comment: 105.1 Performed By: #### L 500.2500, L100.0500 #### [facility] [address] [place], [address] MCHC (RBC) [Mass/Vol] 32.3 g/dL Normal 32-36 [facility] Comment on above: Order Comment: 105.1 Performed By: #### L 500.2500, L100.0500 #### [facility] [address] [place], [address] MCV (RBC) [Entitic vol] 99.1 fL High 81-99 [facility] Comment on above: Order Comment: 105.1 Performed By: #### L 500.2500, L100.0500 #### [facility] [address] [place], [address] Monocytes/100 WBC (Bld) 7.7 % Normal 0-10 [facility] Comment on above: Order Comment: 105.1 Performed By: #### L 500.2500, L100.0500 #### [facility] [address] [place], [address] Neutrophils/100 WBC (Bld) 42.2 % Low 47-70 [facility] Comment on above: Order Comment: 105.1 Performed By: #### L 500.2500, L100.0500 #### [facility] [address] [place], [address] Nucleated RBC (Bld) [#/Vol] 0 10*3/uL Normal 0-5 [facility] Comment on above: Order Comment: 105.1 Performed By: #### L 500.2500, L100.0500 #### [facility] [address] [place], [address] Platelet mean volume (Bld) [Entitic vol] 11.6 fL Normal 6.2-12.0 [facility] Comment on above: Order Comment: 105.1 Performed By: #### L 500.2500, L100.0500 #### [facility] [address] [place], [address] Platelets (Bld) [#/Vol] 209 10*3/uL Normal 150-450 [facility] Comment on above: Order Comment: 105.1 Performed By: #### L 500.2500, L100.0500 #### [facility] [address] [place], [address] RBC (Bld) [#/Vol] 4.68 10*6/uL Normal 4.2-5.4 [facility] Comment on above: Order Comment: 105.1 Performed By: #### L 500.2500, L100.0500 #### [facility] [address] [place], [address] RDW SD 48.9 fl High 35.1-43.9 [facility] Comment on above: Order Comment: 105.1 Performed By: #### L 500.2500, L100.0500 #### [facility] [address] [place], [address] WBC (Bld) [#/Vol] 7.8 10*3/uL Normal 4.4-11.0 [facility] Comment on above: Order Comment: 105.1 Performed By: #### L 500.2500, L100.0500 #### [facility] [address] [place], [address] Carbon dioxide measurementOr dered By: Saurabh Fernandez on 09-16-2024 CO2 [Moles/Vol] 31.0 mmol/L 21.0-32.0 [facility] Chloride measurementOrdered By: Saurabh Fernandez on 09-16-2024 Chloride [Moles/Vol] 109 mmol/L High 98-107 [facility] Comprehensive Metabolic Prof ilon 09-16-2024 Albumin [Mass/Vol] 2.8 g/dL Low 3.2-5.0 [facility] Comment on above: Order Comment: 105.1 Performed By: #### L 500.2500, L100.0500 #### [facility] [address] [place], [address] Albumin/Globulin [Mass ratio] 0.7 {ratio} Low 0.9-2.4 [facility] Comment on above: Order Comment: 105.1 Performed By: #### L 500.2500, L100.0500 #### [facility] [address] [place], [address] ALK P 69 U/L Normal 45-117 [facility] Comment on above: Order Comment: 105.1 Performed By: #### L 500.2500, L100.0500 #### [facility] [address] [place], [address] ALT [Catalytic activity/Vol] 21 U/L Normal 13-56 [facility] Comment on above: Order Comment: 105.1 Performed By: #### L 500.2500, L100.0500 #### [facility] [address] [place], [address] AST [Catalytic activity/Vol] 17 U/L Normal 15-37 [facility] Comment on above: Order Comment: 105.1 Performed By: #### L 500.2500, L100.0500 #### [facility] [address] [place], [address] Bilirubin [Mass/Vol] 0.50 mg/dL Normal 0.20-1.00 [facility] Comment on above: Order Comment: 105.1 Result Comment: For patients on eltrombopag therapy, use of Dimension [place] TBIL is not recommended. Performed By: #### L 500.2500, L100.0500 #### [facility] [address] [place], [address] BUN/CRE 30.8 RATIO High 10-20 [facility] Comment on above: Order Comment: 105.1 Performed By: #### L 500.2500, L100.0500 #### [facility] [address] [place], [address] CA,Total 8.7 mg/dL Normal 8.5-10.1 [facility] Comment on above: Order Comment: 105.1 Performed By: #### L 500.2500, L100.0500 #### [facility] [address] [place], [address] Chloride [Moles/Vol] 109 mmol/L High 98-107 [facility] Comment on above: Order Comment: 105.1 Performed By: #### L 500.2500, L100.0500 #### [facility] [address] [place], [address] CO2 [Moles/Vol] 31.0 mmol/L Normal 21.0-32.0 [facility] Comment on above: Order Comment: 105.1 Performed By: #### L 500.2500, L100.0500 #### [facility] [address] [place], [address] Creatinine [Mass/Vol] 1.04 mg/dL High 0.55-1.02 [facility] Comment on above: Order Comment: 105.1 Result Comment: The validity of the calculated GFR GFRAA in patients over 70 years has not been determined. Clinical correlation is essential. Performed By: #### L 500.2500, L100.0500 #### [facility] [address] [place], [address] EST GFR - AA 65 mL/min Normal >60 [facility] Comment on above: Order Comment: 105.1 Result Comment: Afri can [place]erratian GFR Calc Performed By: #### L 500.2500, L100.0500 #### [facility] [address] [place], [address] GAP 2 Low 5-15 [facility] Comment on above: Order Comment: 105.1 Performed By: #### L 500.2500, L100.0500 #### [facility] [address] [place], [address] GFR/1.73 sq M.predicted among non-blacks MDRD (S/P/Bld) [Vol rate/Area] 54 mL/min/{1.73_m2} Low >60 [facility] Comment on above: Order Comment: 105.1 Result Comment: Non- GFR Calc Performed By: #### L 500.2500, L100.0500 #### [facility] [address] [place], [address] Globulin (S) [Mass/Vol] 4.0 g/dL Normal 2.2-4.2 [facility] Comment on above: Order Comment: 105.1 Performed By: #### L 500.2500, L100.0500 #### [facility] [address] [place], [address] Glucose [Mass/Vol] 89 mg/dL Normal 74-106 [facility] Comment on above: Order Comment: 105.1 Performed By: #### L 500.2500, L100.0500 #### [facility] [address] [place], [address] Potassium [Moles/Vol] 4.4 mmol/L Normal 3.5-5.1 [facility] Comment on above: Order Comment: 105.1 Performed By: #### L 500.2500, L100.0500 #### [facility] [address] [place], [address] Sodium [Moles/Vol] 142 mmol/L Normal 136-145 [facility] Comment on above: Order Comment: 105.1 Performed By: #### L 500.2500, L100.0500 #### [facility] [address] [place], [address] T PROT 6.8 g/dL Normal 6.4-8.2 [facility] Comment on above: Order Comment: 105.1 Performed By: #### L 500.2500, L100.0500 #### [facility] [address] [place], [address] Urea nitrogen [Mass/Vol] 32 mg/dL High 7-18 [facility] Comment on above: Order Comment: 105.1 Performed By: #### L 500.2500, L100.0500 #### [facility] [address] [place], [address] Eosinophil percentageOrdered By: Saurabh Fernandez on 09-16-2024 Eosinophils/100 WBC (Bld) 4.6 % 0-5 [facility] Erythrocyte distribution wid th (RBC) [Ratio]Ordered By: Saurabh Fernandez on 09-16-2024 Erythrocyte distribution width (RBC) [Entitic vol] 48.9 fL High 35.1-43.9 [facility] Erythrocyte distribution wid th ratioOrdered By: Saurabh Fernandez on 09-16-2024 Erythrocyte distribution width (RBC) [Ratio] 13.3 % 11.6-14.6 [facility] Estimated glomerular filtrat ion rate (GFR) AmericanOrdered By: Saurabh Fernandez on 09-16-2024 Estimated GFR (MDRD) Amer 65 mL/min >60 [facility] Comment on above: GFR Calc Glomerular filtration rate ( GFR) estimationOrdered By: Saurabh Fernandez on 09-16-2024 Estimated GFR (MDRD) Non-Af Amer 54 mL/min Low >60 [facility] Comment on above: Non- GFR Calc Glucose measurementOrdered B y: Saurabh Fernandez on 09-16-2024 Glucose [Mass/Vol] 89 mg/dL 74-106 [facility] Hematocrit Auto (Bld) [Volum e fraction]Ordered By: Saurabh Fernandez on 09-16-2024 Hematocrit (Bld) [Volume fraction] 46.4 % 37-47 [facility] Hemoglobin measurementOrdere d By: Saurabh Fernandez on 09-16-2024 Hemoglobin (Bld) [Mass/Vol] 15.0 g/dL 12.0-15.0 [facility] High density lipoprotein (HD L) measurementOrdered By: Saurabh Fernandez on 09-16-2024 Cholesterol in HDL [Mass/Vol] 52 mg/dL >40 [facility] Comment on above: The drugs N-Acetylcy steine and Metamizole may falsely depress this assay. Reference Range HDL <40 mg/dL Low HDL Cholesterol HDL >or= 60 mg/dL High HDL Cholesterol Immature granulocytes/100 WB C Auto (Bld)Ordered By: Saurabh Fernandez on 09-16-2024 Immature granulocytes/100 WBC (Bld) 0.400 % 0.0-0.9 [facility] Comment on above: IG% - Immature Granu locytes (promyelocytes, myelocytes and metamyelocytes) > 1% indicates that a LEFT SHIFT is Present. Laboratory - Chemistry and C hemistry - challengeOrdered By: Saurabh Fernandez on 09-16-2024 AST [Catalytic activity/Vol] 17 U/L 15-37 [facility] Lipid Profileon 09-16-2024 Cholesterol [Mass/Vol] 190 mg/dL Normal 200 [facility] Comment on above: Order Comment: 105.1 Result Comment: <200 mg/dL Desirable 200-240 mg/dL Borderline >240 mg/dL High Risk Performed By: #### M 100.638 #### [facility] [address] [place], [address] Cholesterol in HDL [Mass/Vol] 52 mg/dL Normal [facility] Comment on above: Order Comment: 105.1 Result Comment: The drugs N-Acetylcysteine and Metamizole may falsely depress this assay. Reference Range HDL <40 mg/dL Low HDL Cholesterol HDL >or= 60 mg/dL High HDL Cholesterol Performed By: #### M 100.638 #### [facility] [address] [place], [address] Cholesterol in LDL [Mass/Vol] 113 mg/dL Normal 0-130 [facility] Comment on above: Order Comment: 105.1 Performed By: #### M 100.638 #### [facility] [address] [place], [place], [address] Cholesterol in VLDL [Mass/Vol] 25 mg/dL Normal 5-40 [facility] Comment on above: Order Comment: 105.1 Performed By: #### M 100.638 #### [facility] [address] [place], [place], [address] Triglyceride [Mass/Vol] 125 mg/dL Normal [facility] Comment on above: Order Comment: 105.1 Result Comment: The drugs N-Acetylcysteine and Metamizole may falsely depress this assay. Serum Triglycerides Reference Interval Normal <150 mg/dL Borderline high 150 - 199 mg/dL High 200 - 499 mg/dL Very High > or = 500 mg/dL Performed By: #### M 100.638 #### [facility] [address] [place], [place], [id number] Low density lipoprotein (LDL ) cholesterol measurementOrdered By: Saurabh Fernandez on 09-16-2024 Cholesterol in LDL [Mass/Vol] 113 mg/dL 0-130 [facility] Lymphocytes Auto (Unsp spec) [#/Vol]Ordered By: Saurabh Fernandez on 09-16-2024 Lymphocytes (Bld) [#/Vol] 3.46 10*3/uL 0.83-4.51 [facility] Lymphocytes/100 WBC Auto (Un sp spec)Ordered By: Saurabh Fernandez on 09-16-2024 Lymphocytes/100 WBC (Bld) 44.1 % High 19-41 [facility] MCV (mean corpuscular volume ) determinationOrdered By: Saurabh Fernandez on 09-16-2024 MCV (RBC) [Entitic vol] 99.1 fL High 81-99 [facility] Mean corpuscular hemoglobin (MCH) determinationOrdered By: Saurabh Fernandez on 09-16-2024 MCH (RBC) [Entitic mass] 32.1 pg High 27.0-32.0 [facility] Mean corpuscular hemoglobin concentration (MCHC) determinationOrdered By: Saurabh Fernandez on 09-16-2024 MCHC (RBC) [Mass/Vol] 32.3 g/dL 32-36 [facility] Mean platelet volume determi nationOrdered By: Saurabh Fernandez on 09-16-2024 Platelet mean volume (Bld) [Entitic vol] 11.6 fL 6.2-12.0 [facility] Monocyte percentageOrdered B y: Saurabh Fernandez on 09-16-2024 Monocytes/100 WBC (Bld) 7.7 % 0-10 [facility] Neutrophil percentageOrdered By: Saurabh Fernandez on 09-16-2024 Neutrophils/100 WBC (Bld) 42.2 % Low 47-70 [facility] Nucleated red blood cell per centageOrdered By: Saurabh Fernandez on 09-16-2024 Nucleated RBC/100 WBC (Bld) [Ratio] 0 % 0-5 [facility] Platelet countOrdered By: Nieto on 09-16-2024 Platelets (Bld) [#/Vol] 209 10*3/uL 150-450 [facility] Potassium measurementOrdered By: Saurabh Fernandez on 09-16-2024 Potassium [Moles/Vol] 4.4 mmol/L 3.5-5.1 [facility] RBC Auto (Bld) [#/Vol]Ordere d By: Saurabh Fernandez on 09-16-2024 RBC (Bld) [#/Vol] 4.68 10*6/uL 4.2-5.4 [facility] Serum anion gap measurementO rdered By: Saurabh Fernandez on 09-16-2024 Anion gap [Moles/Vol] 2 mmol/L Low 5-15 [facility] Serum globulin measurementOr dered By: Saurabh Fernandez on 09-16-2024 Globulin (S) [Mass/Vol] 4.0 g/dL 2.2-4.2 [facility] Serum or plasma alanine macedo otransferase (ALT) measurementOrdered By: Saurabh Fernandez on 09-16-2024 ALT [Catalytic activity/Vol] 21 U/L 13-56 [facility] Serum or plasma albumin tyrese urement (mass/volume)Ordered By: Saurabh Fernandez on 09-16-2024 Albumin [Mass/Vol] 2.8 g/dL Low 3.2-5.0 [facility] Serum or plasma alkaline elia sphatase measurementOrdered By: Saurabh Fernandez on 09-16-2024 ALP [Catalytic activity/Vol] 69 U/L 45-117 [facility] Serum or plasma calcium tyrese urement (mass/volume)Ordered By: Saurabh Fernandez on 09-16-2024 Calcium [Mass/Vol] 8.7 mg/dL 8.5-10.1 [facility] Serum or plasma cholesterol measurement (mass/volume)Ordered By: Saurabh Fernandez on 09-16-2024 Cholesterol [Mass/Vol] 190 mg/dL <200 [facility] Comment on above: <200 mg/dL Desirable 200-240 mg/dL Borderline >240 mg/dL High Risk Serum or plasma creatinine m easurement (mass/volume)Ordered By: Saurabh Fernandez on 09-16-2024 Creatinine [Mass/Vol] 1.04 mg/dL High 0.55-1.02 [facility] Comment on above: The validity of the calculated GFR & GFRAA in patients over 70 years has not been determined. Clinical correlation is essential. Serum or plasma urea nitroge n measurement (mass/volume)Ordered By: Saurabh Fernandez on 09-16-2024 Urea nitrogen [Mass/Vol] 32 mg/dL High 7-18 [facility] Sodium levelOrdered By: Saurabh Fernandez on 09-16-2024 Sodium [Moles/Vol] 142 mmol/L 136-145 [facility] TSH QnOrdered By: Saurabh handy on 09-16-2024 Thyroid Stimulating Hormone (TSH) 2.080 uIU/mL 0.358-3.740 [facility] Thyroid Stim Hormone (TSH)on 09-16-2024 TSH 2.080 uIU/mL Normal 0.358-3.740 [facility] Comment on above: Order Comment: 105.1 Performed By: #### M [id number] #### [facility], [address] Total proteinOrdered By: Ambreen Fernandez on 09-16-2024 Protein [Mass/Vol] 6.8 g/dL 6.4-8.2 [facility] Triglycerides measurementOrd ered By: Saurabh Fernandez on 09-16-2024 Triglyceride [Mass/Vol] 125 mg/dL <199 [facility] Comment on above: The drugs N-Acetylcy steine and Metamizole may falsely depress this assay.Serum Triglycerides Reference Interval Normal <150 mg/dL Borderline high 150 - 199 mg/dL High 200 - 499 mg/dL Very High > or = 500 mg/dL Very low density lipoprotein (VLDL) cholesterol measurementOrdered By: Saurabh Fernandez on 09-16-2024 VLDL Cholesterol 25 mg/dL 5-40 [facility] White blood cell (WBC) count Ordered By: Saurabh Fernandez on 09-16-2024 WBC (Bld) [#/Vol] 7.8 10*3/uL 4.4-11.0 [facility] [id number] DOrdered By: Migue Fernandez on 08-30-2024 Vitamin D 25-Hydroxy 69.9 ng/mL [facility] Comment on above: Vitamin D 25(OH) Sta tus Range Deficiency <20 ng/mL (50nmol/L) Insufficiency 20 - 30 ng/mL (50 - 75 nmol/L) Sufficiency 30 - 100 ng/mL (75 - 250 nmol/L) Toxicity >100 ng/mL (>250 nmol/L) Valproate levelOrdered By: Migue Fernandez on 08-30-2024 Valproic Acid (Depakene) Level 26 ug/mL Low 50-100 [facility] Valproic Acid (Depakene) Lev ladonna 08-30-2024 VALPROIC ACID 26 ug/mL Low 50-100 [facility] Comment on above: Order Comment: 105.1 Performed By: #### L 500.2500, L100.0500 #### [facility] [address] [place], [address] Vitamin D,25 Hydroxyon 08-30 Vitamin D 25-OH 69.9 ng/mL Normal [facility] Comment on above: Order Comment: 105.1 Result Comment: Kerline min D 25(OH) Status Range Deficiency <20 ng/mL (50nmol/L) Insufficiency 20 - 30 ng/mL (50 - 75 nmol/L) Sufficiency 30 - 100 ng/mL (75 - 250 nmol/L) Toxicity >100 ng/mL (>250 nmol/L) Performed By: #### L 500.2500, L100.0500 #### [facility] [address] [place], [address] Thyroid Stim Hormone (TSH)on 08-09-2024 TSH 1.590 uIU/mL Normal 0.358-3.740 [facility] Comment on above: Order Comment: 105.1 Performed By: #### L 500.2500, L100.0500 #### [facility] [address] [place], [address] Absolute lymphocyte countOrd ered By: Saurabh Fernandez on 10-16-2023 Lymphocytes Auto (Unsp spec) [#/Vol] 2.40 10*3/uL 0.83-4.51 [facility] Automated lymphocyte count a s percentage of total leukocytesOrdered By: Saurabh Fernandez on 10-16-2023 Lymphocytes/100 WBC Auto (Unsp spec) 22.2 % 19-41 [facility] Basophil percentageOrdered B y: Saurabh Fernandez on 10-16-2023 Basophils/100 WBC (Bld) 0.6 % 0-1 [facility] Bilirubin [Mass/Vol] 0.50 mg/dL 0.20-1.00 [facility] Comment on above: For patients on eltr ombopag therapy, use of Dimension [place] TBIL is not recommended. Chloride [Moles/Vol] 109 mmol/L 98-107 [facility] Cholesterol [Mass/Vol] 204 mg/dL <200 [facility] Comment on above: <200 mg/dL Desirable 200-240 mg/dL Borderline >240 mg/dL High Risk Eosinophils/100 WBC (Bld) 2.9 % 0-5 [facility] Glucose [Mass/Vol] 84 mg/dL 74-106 [facility] Hemoglobin (Bld) [Mass/Vol] 15.1 g/dL 12.0-15.0 [facility] Monocytes/100 WBC (Bld) 7.4 % 0-10 [facility] Neutrophils (Bld) [#/Vol] 7.2 10*3/uL 2.0-7.7 [facility] Neutrophils/100 WBC (Bld) 66.6 % 47-70 [facility] Potassium [Moles/Vol] 3.9 mmol/L 3.5-5.1 [facility] Protein [Mass/Vol] 6.4 g/dL 6.4-8.2 [facility] Sodium [Moles/Vol] 140 mmol/L 136-145 [facility] Triglyceride [Mass/Vol] 144 mg/dL <199 [facility] Comment on above: The drugs N-Acetylcy steine and Metamizole may falsely depress this assay.Serum Triglycerides Reference Interval Normal <150 mg/dL Borderline high 150 - 199 mg/dL High 200 - 499 mg/dL Very High > or = 500 mg/dL WBC (Bld) [#/Vol] 10.8 10*3/uL 4.4-11.0 [facility] Determination of erythrocyte mean corpuscular volume (MCV)Ordered By: Saurabh Fernandez on 10-16-2023 MCV (RBC) [Entitic vol] 99.6 fL 81-99 [facility] Erythrocyte distribution wid th ratioOrdered By: Saurabh Fernandez on 10-16-2023 Erythrocyte distribution width (RBC) [Ratio] 13.4 % 11.6-14.6 [facility] Erythrocyte distribution wid th standard deviationOrdered By: Saurabh Fernandez on 10-16-2023 Erythrocyte distribution width (RBC) [Entitic vol] 49.4 fL 35.1-43.9 [facility] Hematocrit Auto (Bld) [Volum e fraction]Ordered By: Saurabh Fernandez on 10-16-2023 Hematocrit (Bld) [Volume fraction] 47.5 % 37-47 [facility] Immature granulocytes/100 WB C Auto (Bld)Ordered By: Saurabh Fernandez on 10-16-2023 Immature granulocytes/100 WBC (Bld) 0.300 % 0.0-0.9 [facility] Comment on above: IG% - Immature Granu locytes (promyelocytes, myelocytes and metamyelocytes) > 1% indicates that a LEFT SHIFT is Present. Laboratory - Chemistry and C hemistry - challengeOrdered By: Saurabh Fernandez on 10-16-2023 Albumin/Globulin [Mass ratio] 0.7 {ratio} 0.9-2.4 [facility] ALP [Catalytic activity/Vol] 67 U/L 45-117 [facility] ALT [Catalytic activity/Vol] 20 U/L 13-56 [facility] Cholesterol in HDL (Body fld) [Mass/Vol] 48 mg/dL >40 [facility] Comment on above: The drugs N-Acetylcy steine and Metamizole may falsely depress this assay. Reference Range HDL <40 mg/dL Low HDL Cholesterol HDL >or= 60 mg/dL High HDL Cholesterol Cholesterol in LDL (Body fld) [Moles/Vol] 127 mg/dL 0-130 [facility] Cholesterol in VLDL Calc [Moles/Vol] 29 mg/dL 5-40 [facility] CO2 [Moles/Vol] 29.0 mmol/L 21.0-32.0 [facility] Globulin (S) [Mass/Vol] 3.7 g/dL 2.2-4.2 [facility] Urea nitrogen/Creatinine [Mass ratio] 27.9 mg/mg 10-20 [facility] - Hematology and Cell countsOrdered By: Saurabh Fernandez on 10-16-2023 MCH (RBC) [Entitic mass] 31.7 pg 27.0-32.0 [facility] MCHC (RBC) [Mass/Vol] 31.8 g/dL 32-36 [facility] Nucleated RBC/100 WBC (Bld) [Ratio] 0 % 0-5 [facility] Platelets (Bld) [#/Vol] 185 10*3/uL 150-450 [facility] No Panel InformationOrdered By: Saurabh Fernandez on 10-16-2023 Estimated GFR (MDRD) Amer 86 mL/min >60 [facility] Comment on above: GFR Calc Estimated GFR (MDRD) Non-Af Amer 71 mL/min >60 [facility] Comment on above: Non- GFR Calc Platelet mean volume Lior-Ec ker (Bld) [Entitic vol]Ordered By: Saurabh Fernandez on 10-16-2023 Platelet mean volume (Bld) [Entitic vol] 11.8 fL 6.2-12.0 [facility] RBC Auto (Bld) [#/Vol]Ordere d By: Saurabh Fernandez on 10-16-2023 RBC (Bld) [#/Vol] 4.77 10*6/uL 4.2-5.4 [facility] Serum or plasma calcium tyrese urement (mass/volume)Ordered By: Saurabh Fernandez on 10-16-2023 Calcium [Mass/Vol] 8.9 mg/dL 8.5-10.1 [facility] Serum or plasma creatinine m easurement (mass/volume)Ordered By: Saurabh Fernandez on 10-16-2023 Creatinine [Mass/Vol] 0.82 mg/dL 0.55-1.02 [facility] Comment on above: The validity of the calculated GFR & GFRAA in patients over 70 years has not been determined. Clinical correlation is essential. Serum or plasma thyroid stim ulating hormone (TSH) measurement (units/volume)Ordered By: Saurabh Fernandez on 10-16-2023 TSH Qn 2.62 uIU/mL 0.358-3.74 [facility] Serum or plasma urea nitroge n measurement (mass/volume)Ordered By: Saurabh Fernandez on 10-16-2023 Urea nitrogen [Mass/Vol] 23 mg/dL 7-18 [facility] Thin prep Papanicolaou smear with manual screeningOrdered By: Saurabh Fernandez on 10-16-2023 Thin prep Papanicolaou smear with manual screening 2.7 g/dL 3.2-5.0 [facility] Thin prep Papanicolaou smear with manual screening 15 U/L 15-37 [facility] Thin prep Papanicolaou smear with manual screening 2 5-15 [facility] No Panel InformationOrdered By: Saurabh Fernandez on 09-29-2023 Valproic Acid (Depakene) Level 27 ug/mL 50-100 [facility] Vitamin D 25-Hydroxy 86.5 ng/mL [facility] Comment on above: Vitamin D 25(OH) Sta tus Range Deficiency <20 ng/mL (50nmol/L) Insufficiency 20 - 30 ng/mL (50 - 75 nmol/L) Sufficiency 30 - 100 ng/mL (75 - 250 nmol/L) Toxicity >100 ng/mL (>250 nmol/L) Absolute lymphocyte countOrd ered By: Saurabh Fernandez on 09-01-2023 Lymphocytes Auto (Unsp spec) [#/Vol] 4.12 10*3/uL 0.83-4.51 [facility] Basophil percentageOrdered B y: Saurabh Fernandez on 09-01-2023 Basophils/100 WBC (Bld) 0.8 % 0-1 [facility] Bilirubin [Mass/Vol] 0.80 mg/dL 0.20-1.00 [facility] Comment on above: For patients on eltr ombopag therapy, use of Dimension [place] TBIL is not recommended. Chloride [Moles/Vol] 110 mmol/L 98-107 [facility] Eosinophils/100 WBC (Bld) 4.8 % 0-5 [facility] Glucose [Mass/Vol] 79 mg/dL 74-106 [facility] Neutrophils (Bld) [#/Vol] 4.2 10*3/uL 2.0-7.7 [facility] Neutrophils/100 WBC (Bld) 43.6 % 47-70 [facility] Potassium [Moles/Vol] 4.1 mmol/L 3.5-5.1 [facility] Comment on above: Moderate Hemolysis, Result may be falsely increased. Protein [Mass/Vol] 6.7 g/dL 6.4-8.2 [facility] Sodium [Moles/Vol] 142 mmol/L 136-145 [facility] WBC (Bld) [#/Vol] 9.7 10*3/uL 4.4-11.0 [facility] Blood erythrocytes count (nu mber/volume)Ordered By: Saurabh Fernandez on 09-01-2023 RBC (Bld) [#/Vol] 5.00 10*6/uL 4.2-5.4 [facility] Blood hemoglobin measurement (mass/volume)Ordered By: Saurabh Fernandez on 09-01-2023 Hemoglobin (Bld) [Mass/Vol] 16.0 g/dL 12.0-15.0 [facility] Blood lymphocytes/100 leukoc ytesOrdered By: Saurabh Fernandez on 09-01-2023 Lymphocytes/100 WBC (Bld) 42.4 % 19-41 [facility] Blood monocytes/100 leukocyt esOrdered By: Saurabh Fernandez on 09-01-2023 Monocytes/100 WBC (Bld) 7.9 % 0-10 [facility] Blood platelet mean volumeOr dered By: Saurabh Fernandez on 09-01-2023 Platelet mean volume (Bld) [Entitic vol] 11.9 fL 6.2-12.0 [facility] Determination of erythrocyte mean corpuscular volume (MCV)Ordered By: Saurabh Fernandez on 09-01-2023 MCV (RBC) [Entitic vol] 100.8 fL 81-99 [facility] Hematocrit Auto (Bld) [Volum e fraction]Ordered By: Saurabh Fernandez on 09-01-2023 Hematocrit (Bld) [Volume fraction] 50.4 % 37-47 [facility] - Chemistry and C hemistry - challengeOrdered By: Saurabh Fernandez on 09-01-2023 ALP [Catalytic activity/Vol] 67 U/L 45-117 [facility] ALT [Catalytic activity/Vol] 21 U/L 13-56 [facility] CO2 [Moles/Vol] 26.0 mmol/L 21.0-32.0 [facility] Globulin (S) [Mass/Vol] 4.0 g/dL 2.2-4.2 [facility] Urea nitrogen/Creatinine [Mass ratio] 30.2 mg/mg 10-20 [facility] - Hematology and Cell countsOrdered By: Saurabh Fernandez on 09-01-2023 Erythrocyte distribution width (RBC) [Entitic vol] 52.3 fL 35.1-43.9 [facility] Erythrocyte distribution width (RBC) [Ratio] 14.0 % 11.6-14.6 [facility] Immature granulocytes/100 WBC (Bld) 0.500 % 0.0-0.9 [facility] Comment on above: IG% - Immature Granu locytes (promyelocytes, myelocytes and metamyelocytes) > 1% indicates that a LEFT SHIFT is Present. MCH (RBC) [Entitic mass] 32.0 pg 27.0-32.0 [facility] Nucleated RBC/100 [facility]Bld[facility] [Mass/Vol]Or dered By: Saurabh Fernandez on 09-01-2023 MCHC (RBC) [Mass/Vol] 31.7 g/dL 32-36 [facility] No Panel InformationOrdered By: Saurabh Fernandez on 09-01-2023 Estimated GFR (MDRD) Amer 72 mL/min >60 [facility] Comment on above: GFR Calc Estimated GFR (MDRD) Non-Af Amer 59 mL/min >60 [facility] Comment on above: Non- GFR Calc Platelets bldOrdered By: Ambreen Fernandez on 09-01-2023 Platelets (Bld) [#/Vol] 221 10*3/uL 150-450 [facility] Serum or plasma albumin tyrese urement (mass/volume)Ordered By: Saurabh Fernandez on 09-01-2023 Albumin [Mass/Vol] 2.7 g/dL 3.2-5.0 [facility] Serum or plasma albumin/glob ulin mass ratioOrdered By: Saurabh Fernandez on 09-01-2023 Albumin/Globulin [Mass ratio] 0.7 {ratio} 0.9-2.4 [facility] Serum or plasma calcium tyrese urement (mass/volume)Ordered By: Saurabh Fernandez on 09-01-2023 Calcium [Mass/Vol] 8.3 mg/dL 8.5-10.1 [facility] Serum or plasma creatinine m easurement (mass/volume)Ordered By: Saurabh Fernandez on 09-01-2023 Creatinine [Mass/Vol] 0.96 mg/dL 0.55-1.02 [facility] Comment on above: The validity of the calculated GFR & GFRAA in patients over 70 years has not been determined. Clinical correlation is essential. Serum or plasma urea nitroge n measurement (mass/volume)Ordered By: Saurabh Fernandez on 09-01-2023 Urea nitrogen [Mass/Vol] 29 mg/dL 7-18 [facility] Thin prep Papanicolaou smear with manual screeningOrdered By: Saurabh Fernandez on 09-01-2023 Thin prep Papanicolaou smear with manual screening 24 U/L 15-37 [facility] Comment on above: Moderate Hemolysis, Result may be falsely increased. Thin prep Papanicolaou smear with manual screening 6 5-15 [facility] Absolute lymphocyte countOrd ered By: Saurabh Fernandez on 07-24-2023 Lymphocytes Auto (Unsp spec) [#/Vol] 3.02 10*3/uL 0.83-4.51 [facility] Basophil percentageOrdered B y: Saurabh Fernandez on 07-24-2023 Basophils/100 WBC (Bld) 0.6 % 0-1 [facility] Bilirubin [Mass/Vol] 0.40 mg/dL 0.20-1.00 [facility] Comment on above: For patients on eltr ombopag therapy, use of Dimension [place] TBIL is not recommended. Chloride [Moles/Vol] 110 mmol/L 98-107 [facility] Cholesterol [Mass/Vol] 189 mg/dL <200 [facility] Comment on above: <200 mg/dL Desirable 200-240 mg/dL Borderline >240 mg/dL High Risk Eosinophils/100 WBC (Bld) 4.2 % 0-5 [facility] Glucose [Mass/Vol] 85 mg/dL 74-106 [facility] Neutrophils (Bld) [#/Vol] 3.1 10*3/uL 2.0-7.7 [facility] Neutrophils/100 WBC (Bld) 43.7 % 47-70 [facility] Potassium [Moles/Vol] 4.2 mmol/L 3.5-5.1 [facility] Protein [Mass/Vol] 6.4 g/dL 6.4-8.2 [facility] Sodium [Moles/Vol] 141 mmol/L 136-145 [facility] Triglyceride [Mass/Vol] 137 mg/dL <199 [facility] Comment on above: The drugs N-Acetylcy steine and Metamizole may falsely depress this assay.Serum Triglycerides Reference Interval Normal <150 mg/dL Borderline high 150 - 199 mg/dL High 200 - 499 mg/dL Very High > or = 500 mg/dL WBC (Bld) [#/Vol] 7.1 10*3/uL 4.4-11.0 [facility] Blood erythrocytes count (nu mber/volume)Ordered By: Saurabh Fernandez on 07-24-2023 RBC (Bld) [#/Vol] 4.72 10*6/uL 4.2-5.4 [facility] Blood hemoglobin measurement (mass/volume)Ordered By: Saurabh Fernandez on 07-24-2023 Hemoglobin (Bld) [Mass/Vol] 14.8 g/dL 12.0-15.0 [facility] Blood lymphocytes/100 leukoc ytesOrdered By: Saurabh Fernandez on 07-24-2023 Lymphocytes/100 WBC (Bld) 42.6 % 19-41 [facility] Blood monocytes/100 leukocyt esOrdered By: Saurabh Fernandez on 07-24-2023 Monocytes/100 WBC (Bld) 8.5 % 0-10 [facility] Blood platelet mean volumeOr dered By: Saurabh Fernandez on 07-24-2023 Platelet mean volume (Bld) [Entitic vol] 12.0 fL 6.2-12.0 [facility] Determination of erythrocyte mean corpuscular volume (MCV)Ordered By: Saurabh Fernandez on 07-24-2023 MCV (RBC) [Entitic vol] 100.2 fL 81-99 [facility] Hematocrit Auto (Bld) [Volum e fraction]Ordered By: Saurabh Fernandez on 07-24-2023 Hematocrit (Bld) [Volume fraction] 47.3 % 37-47 [facility] - Chemistry and C hemistry - challengeOrdered By: Saurabh Fernandez on 07-24-2023 ALP [Catalytic activity/Vol] 57 U/L 45-117 [facility] ALT [Catalytic activity/Vol] 18 U/L 13-56 [facility] CO2 [Moles/Vol] 29.0 mmol/L 21.0-32.0 [facility] Globulin (S) [Mass/Vol] 3.9 g/dL 2.2-4.2 [facility] Urea nitrogen/Creatinine [Mass ratio] 32.6 mg/mg 10-20 [facility] - Hematology and Cell countsOrdered By: Saurabh Fernandez on 07-24-2023 Erythrocyte distribution width (RBC) [Entitic vol] 50.6 fL 35.1-43.9 [facility] Erythrocyte distribution width (RBC) [Ratio] 13.7 % 11.6-14.6 [facility] Immature granulocytes/100 WBC (Bld) 0.400 % 0.0-0.9 [facility] Comment on above: IG% - Immature Granu locytes (promyelocytes, myelocytes and metamyelocytes) > 1% indicates that a LEFT SHIFT is Present. MCH (RBC) [Entitic mass] 31.4 pg 27.0-32.0 [facility] Nucleated RBC/100 WBC (Bld) [Ratio] 0 % 0-5 [facility] MCHC Auto (RBC) [Mass/Vol]Or dered By: Saurabh Fernandez on 07-24-2023 MCHC (RBC) [Mass/Vol] 31.3 g/dL 32-36 [facility] No Panel InformationOrdered By: Saurabh Fernandez on 07-24-2023 Estimated GFR (MDRD) Amer 82 mL/min >60 [facility] Comment on above: GFR Calc Estimated GFR (MDRD) Non-Af Amer 67 mL/min >60 [facility] Comment on above: Non- GFR Calc Thyroid Stimulating Hormone (TSH) 1.79 uIU/mL 0.358-3.74 [facility] Platelets bldOrdered By: Ambreen Fernandez on 07-24-2023 Platelets (Bld) [#/Vol] 191 10*3/uL 150-450 [facility] Serum or plasma albumin tyrese urement (mass/volume)Ordered By: Saurabh Fernandez on 07-24-2023 Albumin [Mass/Vol] 2.5 g/dL 3.2-5.0 [facility] Serum or plasma albumin/glob ulin mass ratioOrdered By: Saurabh Fernandez on 07-24-2023 Albumin/Globulin [Mass ratio] 0.6 {ratio} 0.9-2.4 [facility] Serum or plasma calcium tyrese urement (mass/volume)Ordered By: Saurabh Fernandez on 07-24-2023 Calcium [Mass/Vol] 8.3 mg/dL 8.5-10.1 [facility] Serum or plasma cholesterol in HDL measurement (mass/volume)Ordered By: Saurabh Fernandez on 07-24-2023 Cholesterol in HDL [Mass/Vol] 45 mg/dL >40 [facility] Comment on above: The drugs N-Acetylcy steine and Metamizole may falsely depress this assay. Reference Range HDL <40 mg/dL Low HDL Cholesterol HDL >or= 60 mg/dL High HDL Cholesterol Serum or plasma cholesterol in VLDL measurement (mass/volume)Ordered By: Saurabh Fernandez on 07-24-2023 Cholesterol in VLDL [Mass/Vol] 27 mg/dL 5-40 [facility] Serum or plasma creatinine m easurement (mass/volume)Ordered By: Saurabh Fernandez on 07-24-2023 Creatinine [Mass/Vol] 0.86 mg/dL 0.55-1.02 [facility] Comment on above: The validity of the calculated GFR & GFRAA in patients over 70 years has not been determined. Clinical correlation is essential. Serum or plasma low density lipoprotein (LDL) cholesterol measurement (mass/volume)Ordered By: Saurabh Fernandez on 07-24-2023 Cholesterol in LDL [Mass/Vol] 117 mg/dL 0-130 [facility] Serum or plasma urea nitroge n measurement (mass/volume)Ordered By: Saurabh Fernandez on 07-24-2023 Urea nitrogen [Mass/Vol] 28 mg/dL 7-18 [facility] Thin prep Papanicolaou smear with manual screeningOrdered By: Saurabh Fernandez on 07-24-2023 Thin prep Papanicolaou smear with manual screening 19 U/L 15-37 [facility] Thin prep Papanicolaou smear with manual screening 2 5-15 [facility] No Panel InformationOrdered By: Saurabh Fernandez on 06-30-2023 Valproic Acid (Depakene) Level 33 ug/mL 50-100 [facility] Absolute lymphocyte countOrd ered By: Saurabh Fernandez on 05-01-2023 Lymphocytes Auto (Unsp spec) [#/Vol] 3.15 10*3/uL 0.83-4.51 [facility] Basophil percentageOrdered B y: Saurabh Fernandez on 05-01-2023 Basophils/100 WBC (Bld) 0.6 % 0-1 [facility] Bilirubin [Mass/Vol] 0.50 mg/dL 0.20-1.00 [facility] Comment on above: For patients on eltr ombopag therapy, use of Dimension [place] TBIL is not recommended. Chloride [Moles/Vol] 108 mmol/L 98-107 [facility] Cholesterol [Mass/Vol] 205 mg/dL <200 [facility] Comment on above: <200 mg/dL Desirable 200-240 mg/dL Borderline >240 mg/dL High Risk Eosinophils/100 WBC (Bld) 3.6 % 0-5 [facility] Glucose [Mass/Vol] 90 mg/dL 74-106 [facility] Neutrophils (Bld) [#/Vol] 3.1 10*3/uL 2.0-7.7 [facility] Neutrophils/100 WBC (Bld) 42.3 % 47-70 [facility] Potassium [Moles/Vol] 4.5 mmol/L 3.5-5.1 [facility] Protein [Mass/Vol] 7.2 g/dL 6.4-8.2 [facility] Sodium [Moles/Vol] 142 mmol/L 136-145 [facility] Triglyceride [Mass/Vol] 160 mg/dL <199 [facility] Comment on above: The drugs N-Acetylcy steine and Metamizole may falsely depress this assay.Serum Triglycerides Reference Interval Normal <150 mg/dL Borderline high 150 - 199 mg/dL High 200 - 499 mg/dL Very High > or = 500 mg/dL WBC (Bld) [#/Vol] 7.3 10*3/uL 4.4-11.0 [facility] Blood erythrocytes count (nu mber/volume)Ordered By: Saurabh Fernandez on 05-01-2023 RBC (Bld) [#/Vol] 4.82 10*6/uL 4.2-5.4 [facility] Blood hemoglobin measurement (mass/volume)Ordered By: Saurabh Fernandez on 05-01-2023 Hemoglobin (Bld) [Mass/Vol] 15.1 g/dL 12.0-15.0 [facility] Blood lymphocytes/100 leukoc ytesOrdered By: Saurabh Fernandez on 05-01-2023 Lymphocytes/100 WBC (Bld) 43.3 % 19-41 [facility] Blood monocytes/100 leukocyt esOrdered By: Saurabh Fernandez on 05-01-2023 Monocytes/100 WBC (Bld) 9.5 % 0-10 [facility] Blood platelet mean volumeOr dered By: Saurabh Fernandez on 05-01-2023 Platelet mean volume (Bld) [Entitic vol] 12.2 fL 6.2-12.0 [facility] Determination of erythrocyte mean corpuscular volume (MCV)Ordered By: Saurabh Fernandez on 05-01-2023 MCV (RBC) [Entitic vol] 100.2 fL 81-99 [facility] Hematocrit Auto (Bld) [Volum e fraction]Ordered By: Saurabh Fernandez on 05-01-2023 Hematocrit (Bld) [Volume fraction] 48.3 % 37-47 [facility] - Chemistry and C hemistry - challengeOrdered By: Saurabh Fernandez on 05-01-2023 ALP [Catalytic activity/Vol] 71 U/L 45-117 [facility] ALT [Catalytic activity/Vol] 27 U/L 13-56 [facility] CO2 [Moles/Vol] 29.0 mmol/L 21.0-32.0 [facility] Globulin (S) [Mass/Vol] 4.3 g/dL 2.2-4.2 [facility] Urea nitrogen/Creatinine [Mass ratio] 29.5 mg/mg 10-20 [facility] - Hematology and Cell countsOrdered By: Saurabh Fernandez on 05-01-2023 Erythrocyte distribution width (RBC) [Entitic vol] 50.1 fL 35.1-43.9 [facility] Erythrocyte distribution width (RBC) [Ratio] 13.4 % 11.6-14.6 [facility] Immature granulocytes/100 WBC (Bld) 0.700 % 0.0-0.9 [facility] Comment on above: IG% - Immature Granu locytes (promyelocytes, myelocytes and metamyelocytes) > 1% indicates that a LEFT SHIFT is Present. MCH (RBC) [Entitic mass] 31.3 pg 27.0-32.0 [facility] Nucleated RBC/100 WBC (Bld) [Ratio] 0 % 0-5 [facility] ([facility]) [Mass/Vol]Or dered By: Saurabh Fernandez on 05-01-2023 MCHC (RBC) [Mass/Vol] 31.3 g/dL 32-36 [facility] No Panel InformationOrdered By: Saurabh Fernandez on 05-01-2023 Estimated GFR (MDRD) Amer 60 mL/min >60 [facility] Comment on above: GFR Calc Estimated GFR (MDRD) Non-Af Amer 50 mL/min >60 [facility] Comment on above: Non- GFR Calc Thyroid Stimulating Hormone (TSH) 2.38 uIU/mL 0.358-3.74 [facility] Platelets bldOrdered By: Ambreen Fernandez on 05-01-2023 Platelets (Bld) [#/Vol] 181 10*3/uL 150-450 [facility] Serum or plasma albumin tyrese urement (mass/volume)Ordered By: Saurabh Fernandez on 05-01-2023 Albumin [Mass/Vol] 2.9 g/dL 3.2-5.0 [facility] Serum or plasma albumin/glob ulin mass ratioOrdered By: Saurabh Fernandez on 05-01-2023 Albumin/Globulin [Mass ratio] 0.7 {ratio} 0.9-2.4 [facility] Serum or plasma calcium tyrese urement (mass/volume)Ordered By: Saurabh Fernandez on 05-01-2023 Calcium [Mass/Vol] 9.0 mg/dL 8.5-10.1 [facility] Serum or plasma cholesterol in HDL measurement (mass/volume)Ordered By: Saurabh Fernandez on 05-01-2023 Cholesterol in HDL [Mass/Vol] 53 mg/dL >40 [facility] Comment on above: The drugs N-Acetylcy steine and Metamizole may falsely depress this assay. Reference Range HDL <40 mg/dL Low HDL Cholesterol HDL >or= 60 mg/dL High HDL Cholesterol Serum or plasma cholesterol in VLDL measurement (mass/volume)Ordered By: Saurabh Fernandez on 05-01-2023 Cholesterol in VLDL [Mass/Vol] 32 mg/dL 5-40 [facility] Serum or plasma creatinine m easurement (mass/volume)Ordered By: Saurabh Fernandez on 05-01-2023 Creatinine [Mass/Vol] 1.12 mg/dL 0.55-1.02 [facility] Comment on above: The validity of the calculated GFR & GFRAA in patients over 70 years has not been determined. Clinical correlation is essential. Serum or plasma low density lipoprotein (LDL) cholesterol measurement (mass/volume)Ordered By: Saurabh Fernandez on 05-01-2023 Cholesterol in LDL [Mass/Vol] 120 mg/dL 0-130 [facility] Serum or plasma urea nitroge n measurement (mass/volume)Ordered By: Saurabh Fernandez on 05-01-2023 Urea nitrogen [Mass/Vol] 33 mg/dL 7-18 [facility] Thin prep Papanicolaou smear with manual screeningOrdered By: Saurabh Fernandez on 05-01-2023 Thin prep Papanicolaou smear with manual screening 21 U/L 15-37 [facility] Thin prep Papanicolaou smear with manual screening 5 5-15 [facility] No Panel InformationOrdered By: Saurabh Fernandez on 04-07-2023 Valproic Acid (Depakene) Level 29 ug/mL 50-100 [facility] Absolute lymphocyte countOrd ered By: Saurabh Fernandez on 02-06-2023 Lymphocytes Auto (Unsp spec) [#/Vol] 2.99 10*3/uL 0.83-4.51 [facility] Basophil percentageOrdered B y: Saurabh Fernandez on 02-06-2023 Basophils/100 WBC (Bld) 0.3 % 0-1 [facility] Bilirubin [Mass/Vol] 0.40 mg/dL 0.20-1.00 [facility] Comment on above: For patients on eltr ombopag therapy, use of Dimension [place] TBIL is not recommended. Chloride [Moles/Vol] 110 mmol/L 98-107 [facility] Cholesterol [Mass/Vol] 196 mg/dL <200 [facility] Comment on above: <200 mg/dL Desirable 200-240 mg/dL Borderline >240 mg/dL High Risk Eosinophils/100 WBC (Bld) 4.4 % 0-5 [facility] Glucose [Mass/Vol] 90 mg/dL 74-106 [facility] Neutrophils (Bld) [#/Vol] 2.9 10*3/uL 2.0-7.7 [facility] Neutrophils/100 WBC (Bld) 43.3 % 47-70 [facility] Potassium [Moles/Vol] 4.4 mmol/L 3.5-5.1 [facility] Protein [Mass/Vol] 6.2 g/dL 6.4-8.2 [facility] Sodium [Moles/Vol] 143 mmol/L 136-145 [facility] Triglyceride [Mass/Vol] 157 mg/dL <199 [facility] Comment on above: The drugs N-Acetylcy steine and Metamizole may falsely depress this assay.Serum Triglycerides Reference Interval Normal <150 mg/dL Borderline high 150 - 199 mg/dL High 200 - 499 mg/dL Very High > or = 500 mg/dL WBC (Bld) [#/Vol] 6.8 10*3/uL 4.4-11.0 [facility] Blood erythrocytes count (nu mber/volume)Ordered By: Saurabh Fernandez on 02-06-2023 RBC (Bld) [#/Vol] 4.40 10*6/uL 4.2-5.4 [facility] Blood hemoglobin measurement (mass/volume)Ordered By: Saurabh Fernandez on 02-06-2023 Hemoglobin (Bld) [Mass/Vol] 13.5 g/dL 12.0-15.0 [facility] Blood lymphocytes/100 leukoc ytesOrdered By: Saurabh Fernandez on 02-06-2023 Lymphocytes/100 WBC (Bld) 44.0 % 19-41 [facility] Blood monocytes/100 leukocyt esOrdered By: Saurabh Fernandez on 02-06-2023 Monocytes/100 WBC (Bld) 7.6 % 0-10 [facility] Blood platelet mean volumeOr dered By: Saurabh Fernandez on 02-06-2023 Platelet mean volume (Bld) [Entitic vol] 11.6 fL 6.2-12.0 [facility] Determination of erythrocyte mean corpuscular volume (MCV)Ordered By: Saurabh Fernandez on 02-06-2023 MCV (RBC) [Entitic vol] 100.0 fL 81-99 [facility] Hematocrit Auto (Bld) [Volum e fraction]Ordered By: Saurabh Fernandez on 02-06-2023 Hematocrit (Bld) [Volume fraction] 44.0 % 37-47 [facility] - Chemistry and C hemistry - challengeOrdered By: Saurabh Fernandez on 02-06-2023 ALP [Catalytic activity/Vol] 63 U/L 45-117 [facility] ALT [Catalytic activity/Vol] 20 U/L 13-56 [facility] CO2 [Moles/Vol] 28.0 mmol/L 21.0-32.0 [facility] Globulin (S) [Mass/Vol] 3.8 g/dL 2.2-4.2 [facility] Urea nitrogen/Creatinine [Mass ratio] 25.0 mg/mg 10-20 [facility] - Hematology and Cell countsOrdered By: Saurabh Fernandez on 02-06-2023 Erythrocyte distribution width (RBC) [Entitic vol] 51.3 fL 35.1-43.9 [facility] Erythrocyte distribution width (RBC) [Ratio] 13.9 % 11.6-14.6 [facility] Immature granulocytes/100 WBC (Bld) 0.400 % 0.0-0.9 [facility] Comment on above: IG% - Immature Granu locytes (promyelocytes, myelocytes and metamyelocytes) > 1% indicates that a LEFT SHIFT is Present. MCH (RBC) [Entitic mass] 30.7 pg 27.0-32.0 [facility] Nucleated RBC/100 WBC (Bld) [Ratio] 0 % 0-5 [facility] MCHC Auto (RBC) [Mass/Vol]Or dered By: Saurabh Fernandez on 02-06-2023 MCHC (RBC) [Mass/Vol] 30.7 g/dL 32-36 [facility] No Panel InformationOrdered By: Saurabh Fernandez on 02-06-2023 Estimated GFR (MDRD) Amer 84 mL/min >60 [facility] Comment on above: GFR Calc Estimated GFR (MDRD) Non-Af Amer 69 mL/min >60 [facility] Comment on above: Non- GFR Calc Thyroid Stimulating Hormone (TSH) 2.21 uIU/mL 0.358-3.74 [facility] Platelets bldOrdered By: Ambreen Fernandez on 02-06-2023 Platelets (Bld) [#/Vol] 204 10*3/uL 150-450 [facility] Serum or plasma albumin tyrese urement (mass/volume)Ordered By: Saurabh Fernandez on 02-06-2023 Albumin [Mass/Vol] 2.4 g/dL 3.2-5.0 [facility] Serum or plasma albumin/glob ulin mass ratioOrdered By: Saurabh Fernandez on 02-06-2023 Albumin/Globulin [Mass ratio] 0.6 {ratio} 0.9-2.4 [facility] Serum or plasma calcium tyrese urement (mass/volume)Ordered By: Saurabh Fernandez on 02-06-2023 Calcium [Mass/Vol] 8.2 mg/dL 8.5-10.1 [facility] Serum or plasma cholesterol in HDL measurement (mass/volume)Ordered By: Saurabh Fernandez on 02-06-2023 Cholesterol in HDL [Mass/Vol] 51 mg/dL >40 [facility] Comment on above: The drugs N-Acetylcy steine and Metamizole may falsely depress this assay. Reference Range HDL <40 mg/dL Low HDL Cholesterol HDL >or= 60 mg/dL High HDL Cholesterol Serum or plasma cholesterol in VLDL measurement (mass/volume)Ordered By: Saurabh Fernandez on 02-06-2023 Cholesterol in VLDL [Mass/Vol] 31 mg/dL 5-40 [facility] Serum or plasma creatinine m easurement (mass/volume)Ordered By: Saurabh Fernandez on 02-06-2023 Creatinine [Mass/Vol] 0.84 mg/dL 0.55-1.02 [facility] Comment on above: The validity of the calculated GFR & GFRAA in patients over 70 years has not been determined. Clinical correlation is essential. Serum or plasma low density lipoprotein (LDL) cholesterol measurement (mass/volume)Ordered By: Saurabh Fernandez on 02-06-2023 Cholesterol in LDL [Mass/Vol] 114 mg/dL 0-130 [facility] Serum or plasma urea nitroge n measurement (mass/volume)Ordered By: Saurabh Fernandez on 02-06-2023 Urea nitrogen [Mass/Vol] 21 mg/dL 7-18 [facility] Thin prep Papanicolaou smear with manual screeningOrdered By: Saurabh Fernandez on 02-06-2023 Thin prep Papanicolaou smear with manual screening 15 U/L 15-37 [facility] Thin prep Papanicolaou smear with manual screening 5 5-15 [facility] No Panel InformationOrdered By: Saurabh Fernandez on 01-13-2023 Valproic Acid (Depakene) Level 38 ug/mL 50-100 [facility] Absolute lymphocyte countOrd ered By: Saurabh Fernandez on 11-14-2022 Lymphocytes Auto (Unsp spec) [#/Vol] 2.82 10*3/uL 0.83-4.51 [facility] Basophil percentageOrdered B y: Saurabh Fernandez on 11-14-2022 Basophils/100 WBC (Bld) 0.3 % 0-1 [facility] Bilirubin [Mass/Vol] 0.40 mg/dL 0.20-1.00 [facility] Comment on above: For patients on eltr ombopag therapy, use of Dimension [place] TBIL is not recommended. Chloride [Moles/Vol] 111 mmol/L 98-107 [facility] Cholesterol [Mass/Vol] 179 mg/dL <200 [facility] Comment on above: <200 mg/dL Desirable 200-240 mg/dL Borderline >240 mg/dL High Risk Eosinophils/100 WBC (Bld) 3.6 % 0-5 [facility] Glucose [Mass/Vol] 77 mg/dL 74-106 [facility] Neutrophils (Bld) [#/Vol] 6.6 10*3/uL 2.0-7.7 [facility] Neutrophils/100 WBC (Bld) 61.7 % 47-70 [facility] Potassium [Moles/Vol] 4.2 mmol/L 3.5-5.1 [facility] Protein [Mass/Vol] 6.4 g/dL 6.4-8.2 [facility] Sodium [Moles/Vol] 145 mmol/L 136-145 [facility] Triglyceride [Mass/Vol] 124 mg/dL <199 [facility] Comment on above: The drugs N-Acetylcy steine and Metamizole may falsely depress this assay.Serum Triglycerides Reference Interval Normal <150 mg/dL Borderline high 150 - 199 mg/dL High 200 - 499 mg/dL Very High > or = 500 mg/dL WBC (Bld) [#/Vol] 10.7 10*3/uL 4.4-11.0 [facility] Blood erythrocytes count (nu mber/volume)Ordered By: Saurabh Fernandez on 11-14-2022 RBC (Bld) [#/Vol] 4.11 10*6/uL 4.2-5.4 [facility] Blood hemoglobin measurement (mass/volume)Ordered By: Saurabh Fernandez on 11-14-2022 Hemoglobin (Bld) [Mass/Vol] 12.7 g/dL 12.0-15.0 [facility] Blood lymphocytes/100 leukoc ytesOrdered By: Saurabh Fernandez on 11-14-2022 Lymphocytes/100 WBC (Bld) 26.4 % 19-41 [facility] Blood monocytes/100 leukocyt esOrdered By: Saurabh Fernandez on 11-14-2022 Monocytes/100 WBC (Bld) 7.6 % 0-10 [facility] Blood platelet mean volumeOr dered By: Saurabh Fernandez on 11-14-2022 Platelet mean volume (Bld) [Entitic vol] 11.6 fL 6.2-12.0 [facility] Determination of erythrocyte mean corpuscular volume (MCV)Ordered By: Saurabh Fernandez on 11-14-2022 MCV (RBC) [Entitic vol] 99.5 fL 81-99 [facility] Hematocrit Auto (Bld) [Volum e fraction]Ordered By: Saurabh Fernandez on 11-14-2022 Hematocrit (Bld) [Volume fraction] 40.9 % 37-47 [facility] - Chemistry and C hemistry - challengeOrdered By: Saurabh Fernandez on 11-14-2022 ALP [Catalytic activity/Vol] 70 U/L 45-117 [facility] ALT [Catalytic activity/Vol] 22 U/L 13-56 [facility] CO2 [Moles/Vol] 29.0 mmol/L 21.0-32.0 [facility] Globulin (S) [Mass/Vol] 3.9 g/dL 2.2-4.2 [facility] Urea nitrogen/Creatinine [Mass ratio] 25.1 mg/mg 10-20 [facility] - Hematology and Cell countsOrdered By: Saurabh Fernandez on 11-14-2022 Erythrocyte distribution width (RBC) [Entitic vol] 52.2 fL 35.1-43.9 [facility] Erythrocyte distribution width (RBC) [Ratio] 14.3 % 11.6-14.6 [facility] Immature granulocytes/100 WBC (Bld) 0.400 % 0.0-0.9 [facility] Comment on above: IG% - Immature Granu locytes (promyelocytes, myelocytes and metamyelocytes) > 1% indicates that a LEFT SHIFT is Present. MCH (RBC) [Entitic mass] 30.9 pg 27.0-32.0 [facility] Nucleated RBC/100 WBC (Bld) [Ratio] 0 % 0-5 [facility] MCHC Auto (RBC) [Mass/Vol]Or dered By: Saurabh Fernandez on 11-14-2022 MCHC (RBC) [Mass/Vol] 31.1 g/dL 32-36 [facility] No Panel InformationOrdered By: Saurabh Fernandez on 11-14-2022 Estimated GFR (MDRD) Amer 84 mL/min >60 [facility] Comment on above: GFR Calc Estimated GFR (MDRD) Non-Af Amer 70 mL/min >60 [facility] Comment on above: Non- GFR Calc Thyroid Stimulating Hormone (TSH) 3.57 uIU/mL 0.358-3.74 [facility] Platelets bldOrdered By: Ambreen Fernandez on 11-14-2022 Platelets (Bld) [#/Vol] 209 10*3/uL 150-450 [facility] Serum or plasma albumin tyrese urement (mass/volume)Ordered By: Saurabh Fernandez on 11-14-2022 Albumin [Mass/Vol] 2.5 g/dL 3.2-5.0 [facility] Serum or plasma albumin/glob ulin mass ratioOrdered By: Saurabh Fernandez on 11-14-2022 Albumin/Globulin [Mass ratio] 0.6 {ratio} 0.9-2.4 [facility] Serum or plasma calcium tyrese urement (mass/volume)Ordered By: Saurabh Fernandez on 11-14-2022 Calcium [Mass/Vol] 8.5 mg/dL 8.5-10.1 [facility] Serum or plasma cholesterol in HDL measurement (mass/volume)Ordered By: Saurabh Fernandez on 11-14-2022 Cholesterol in HDL [Mass/Vol] 48 mg/dL >40 [facility] Comment on above: The drugs N-Acetylcy steine and Metamizole may falsely depress this assay. Reference Range HDL <40 mg/dL Low HDL Cholesterol HDL >or= 60 mg/dL High HDL Cholesterol Serum or plasma cholesterol in VLDL measurement (mass/volume)Ordered By: Saurabh Fernandez on 11-14-2022 Cholesterol in VLDL [Mass/Vol] 25 mg/dL 5-40 [facility] Serum or plasma creatinine m easurement (mass/volume)Ordered By: Saurabh Fernandez on 11-14-2022 Creatinine [Mass/Vol] 0.84 mg/dL 0.55-1.02 [facility] Comment on above: The validity of the calculated GFR & GFRAA in patients over 70 years has not been determined. Clinical correlation is essential. Serum or plasma low density lipoprotein (LDL) cholesterol measurement (mass/volume)Ordered By: Saurabh Fernandez on 11-14-2022 Cholesterol in LDL [Mass/Vol] 106 mg/dL 0-130 [facility] Serum or plasma urea nitroge n measurement (mass/volume)Ordered By: Saurabh Fernandez on 11-14-2022 Urea nitrogen [Mass/Vol] 21 mg/dL 7-18 [facility] Thin prep Papanicolaou smear with manual screeningOrdered By: Saurabh Fernandez on 11-14-2022 Thin prep Papanicolaou smear with manual screening 21 U/L 15-37 [facility] Thin prep Papanicolaou smear with manual screening 5 5-15 [facility] No Panel InformationOrdered By: Saurabh Fernandez on 10-21-2022 Valproic Acid (Depakene) Level 31 ug/mL 50-100 [facility] Progress Noteon 08-28-2022 Progress Note Patient [...] to 10 mg daily for prophylaxis Normal [facility] Absolute lymphocyte countOrd ered By: Harpal Ramirez on 08-23-2022 Lymphocytes Auto (Unsp spec) [#/Vol] 2.14 10*3/uL 0.83-4.51 [facility] Basophil percentageOrdered B y: Harpal Ramirez on 08-23-2022 Basophils/100 WBC (Bld) 0.6 % 0-1 [facility] Eosinophils/100 WBC (Bld) 4.1 % 0-5 [facility] Neutrophils (Bld) [#/Vol] 3.5 10*3/uL 2.0-7.7 [facility] Neutrophils/100 WBC (Bld) 53.2 % 47-70 [facility] WBC (Bld) [#/Vol] 6.6 10*3/uL 4.4-11.0 [facility] Blood erythrocytes count (nu mber/volume)Ordered By: Harpal Ramirez on 08-23-2022 RBC (Bld) [#/Vol] 3.84 10*6/uL [facility]2-5.4 [facility] hemoglobin measurement (mass/volume)Ordered By: Harpal Ramirez on 08-23-2022 Hemoglobin (Bld) [Mass/Vol] 11.7 g/dL 12.0-15.0 [facility] Blood lymphocytes/100 leukoc ytesOrdered By: Harpal Ramirez on 08-23-2022 Lymphocytes/100 WBC (Bld) 32.5 % 19-41 [facility] Blood monocytes/100 leukocyt esOrdered By: Harpal Ramirez on 08-23-2022 Monocytes/100 WBC (Bld) 9.1 % 0-10 [facility] Blood platelet mean volumeOr dered By: Harpal Ramirez on 08-23-2022 Platelet mean volume (Bld) [Entitic vol] 11.5 fL 6.2-12.0 [facility] Determination of erythrocyte mean corpuscular volume (MCV)Ordered By: Harpal Ramirez on 08-23-2022 MCV (RBC) [Entitic vol] 96.6 fL 81-99 [facility] Hematocrit Auto (Bld) [Volum e fraction]Ordered By: Harpal Ramirez on 08-23-2022 Hematocrit (Bld) [Volume fraction] 37.1 % 37-47 [facility] Laboratory - Hematology and Cell countsOrdered By: Harpal Ramirez on 08-23-2022 Erythrocyte distribution width (RBC) [Entitic vol] 50.7 fL 35.1-43.9 [facility] Erythrocyte distribution width (RBC) [Ratio] 14.4 % 11.6-14.6 [facility] Immature granulocytes/100 WBC (Bld) 0.500 % 0.0-0.9 [facility] Comment on above: IG% - Immature Granu locytes (promyelocytes, myelocytes and metamyelocytes) > 1% indicates that a LEFT SHIFT is Present. MCH (RBC) [Entitic mass] 30.5 pg 27.0-32.0 [facility] Nucleated RBC/100 WBC (Bld) [Ratio] 0 % 0-5 [facility] MCHC Auto (RBC) [Mass/Vol]Or dered By: Harpal Ramirez on 08-23-2022 MCHC (RBC) [Mass/Vol] 31.5 g/dL 32-36 [facility] Platelets bldOrdered By: Kanu Ramirez on 08-23-2022 Platelets (Bld) [#/Vol] 226 10*3/uL 150-450 [facility] 36on 08-22-2022 36 Last seen:11/28/21 [facility] Basophil percentageOrdered B y: Harpal James on 08-22-2022 Bilirubin [Mass/Vol] 0.60 mg/dL 0.20-1.00 [facility] Comment on above: For patients on eltr ombopag therapy, use of Dimension [place] TBIL is not recommended. Chloride [Moles/Vol] 105 mmol/L 98-107 [facility] Cholesterol [Mass/Vol] 189 mg/dL <200 [facility] Comment on above: <200 mg/dL Desirable 200-240 mg/dL Borderline >240 mg/dL High Risk Glucose [Mass/Vol] 83 mg/dL 74-106 [facility] Potassium [Moles/Vol] 4.1 mmol/L 3.5-5.1 [facility] Protein [Mass/Vol] 7.6 g/dL 6.4-8.2 [facility] Sodium [Moles/Vol] 140 mmol/L 136-145 [facility] Triglyceride [Mass/Vol] 121 mg/dL <199 [facility] Comment on above: The drugs N-Acetylcy steine and Metamizole may falsely depress this assay.Serum Triglycerides Reference Interval Normal <150 mg/dL Borderline high 150 - 199 mg/dL High 200 - 499 mg/dL Very High > or = 500 mg/dL Laboratory - Chemistry and C hemistry - challengeOrdered By: Harpal Ramirez on 08-22-2022 ALP [Catalytic activity/Vol] 75 U/L 45-117 [facility] ALT [Catalytic activity/Vol] 28 U/L 13-56 [facility] CO2 [Moles/Vol] 30.0 mmol/L 21.0-32.0 [facility] Globulin (S) [Mass/Vol] 4.5 g/dL 2.2-4.2 [facility] Urea nitrogen/Creatinine [Mass ratio] 28.4 mg/mg 10-20 [facility] No Panel InformationOrdered By: Harpal Ramirez on 08-22-2022 Estimated GFR (MDRD) Amer 70 mL/min >60 [facility] Comment on above: GFR Calc Estimated GFR (MDRD) Non-Af Amer 58 mL/min >60 [facility] Comment on above: Non- GFR Calc Thyroid Stimulating Hormone (TSH) 2.50 uIU/mL 0.358-3.74 [facility] Serum or plasma albumin tyrese urement (mass/volume)Ordered By: Harpal Ramirez on 08-22-2022 Albumin [Mass/Vol] 3.1 g/dL 3.2-5.0 [facility] Serum or plasma albumin/glob ulin mass ratioOrdered By: Harpal Ramirez on 08-22-2022 Albumin/Globulin [Mass ratio] 0.7 {ratio} 0.9-2.4 [facility] Serum or plasma calcium tyrese urement (mass/volume)Ordered By: Harpal Ramirez on 08-22-2022 Calcium [Mass/Vol] 9.1 mg/dL 8.5-10.1 [facility] Serum or plasma cholesterol in HDL measurement (mass/volume)Ordered By: Harpal Ramirez on 08-22-2022 Cholesterol in HDL [Mass/Vol] 62 mg/dL >40 [facility] Comment on above: The drugs N-Acetylcy steine and Metamizole may falsely depress this assay. Reference Range HDL <40 mg/dL Low HDL Cholesterol HDL >or= 60 mg/dL High HDL Cholesterol Serum or plasma cholesterol in VLDL measurement (mass/volume)Ordered By: Harpal Ramirez on 08-22-2022 Cholesterol in VLDL [Mass/Vol] 24 mg/dL 5-40 [facility] Serum or plasma creatinine m easurement (mass/volume)Ordered By: Harpal Ramirez on 08-22-2022 Creatinine [Mass/Vol] 0.98 mg/dL 0.55-1.02 [facility] Comment on above: The validity of the calculated GFR & GFRAA in patients over 70 years has not been determined. Clinical correlation is essential. Serum or plasma low density lipoprotein (LDL) cholesterol measurement (mass/volume)Ordered By: Harpal Ramirez on 08-22-2022 Cholesterol in LDL [Mass/Vol] 103 mg/dL 0-130 [facility] Serum or plasma urea nitroge n measurement (mass/volume)Ordered By: Harpal Ramirez on 08-22-2022 Urea nitrogen [Mass/Vol] 28 mg/dL 7-18 [facility] Thin prep Papanicolaou smear with manual screeningOrdered By: Harpal Ramirez on 08-22-2022 Thin prep Papanicolaou smear with manual screening 19 U/L 15-37 [facility] Thin prep Papanicolaou smear with manual screening 5 5-15 [facility] No Panel InformationOrdered By: Harpal Ramirez on 07-29-2022 Valproic Acid (Depakene) Level 38 ug/mL 50-100 [facility] Absolute lymphocyte countOrd ered By: Harpal Ramirez on 07-24-2022 Lymphocytes Auto (Unsp spec) [#/Vol] 2.39 10*3/uL 0.83-4.51 [facility] Basophil percentageOrdered B y: Harpal Ramirez on 07-24-2022 Basophils/100 WBC (Bld) 1.0 % 0-1 [facility] Chloride [Moles/Vol] 112 mmol/L 98-107 [facility] Eosinophils/100 WBC (Bld) 9.2 % 0-5 [facility] Glucose [Mass/Vol] 77 mg/dL 74-106 [facility] Neutrophils (Bld) [#/Vol] 2.3 10*3/uL 2.0-7.7 [facility] Neutrophils/100 WBC (Bld) 39.3 % 47-70 [facility] Potassium [Moles/Vol] 4.3 mmol/L 3.5-5.1 [facility] Comment on above: Slight Hemolysis, Re sult may be falsely increased. Sodium [Moles/Vol] 142 mmol/L 136-145 [facility] WBC (Bld) [#/Vol] 5.7 10*3/uL 4.4-11.0 [facility] Blood erythrocytes count (nu mber/volume)Ordered By: Harpal Ramirez on 07-24-2022 RBC (Bld) [#/Vol] 4.17 10*6/uL 4.2-5.4 [facility] Blood hemoglobin measurement (mass/volume)Ordered By: Harpal Ramirez on 07-24-2022 Hemoglobin (Bld) [Mass/Vol] 13.1 g/dL 12.0-15.0 [facility] Blood lymphocytes/100 leukoc ytesOrdered By: Harpal Ramirez on 07-24-2022 Lymphocytes/100 WBC (Bld) 41.6 % 19-41 [facility] Blood monocytes/100 leukocyt esOrdered By: Harpal Ramirez on 07-24-2022 Monocytes/100 WBC (Bld) 8.4 % 0-10 [facility] Blood platelet mean volumeOr dered By: Harpal Ramirez on 07-24-2022 Platelet mean volume (Bld) [Entitic vol] 11.5 fL 6.2-12.0 [facility] Determination of erythrocyte mean corpuscular volume (MCV)Ordered By: Harpal Ramirez on 07-24-2022 MCV (RBC) [Entitic vol] 99.0 fL 81-99 [facility] Hematocrit Auto (Bld) [Volum e fraction]Ordered By: Harpal Ramirez on 07-24-2022 Hematocrit (Bld) [Volume fraction] 41.3 % 37-47 [facility] Laboratory - Chemistry and C hemistry - challengeOrdered By: Harpal Ramirez on 07-24-2022 CO2 [Moles/Vol] 25.0 mmol/L 21.0-32.0 [facility] Urea nitrogen/Creatinine [Mass ratio] 24.3 mg/mg 10-20 [facility] - Hematology and Cell countsOrdered By: Harpal Ramirez on 07-24-2022 Erythrocyte distribution width (RBC) [Entitic vol] 54.2 fL 35.1-43.9 [facility] Erythrocyte distribution width (RBC) [Ratio] 14.8 % 11.6-14.6 [facility] Immature granulocytes/100 WBC (Bld) 0.500 % 0.0-0.9 [facility] Comment on above: IG% - Immature Granu locytes (promyelocytes, myelocytes and metamyelocytes) > 1% indicates that a LEFT SHIFT is Present. MCH (RBC) [Entitic mass] 31.4 pg 27.0-32.0 [facility] Nucleated RBC/100 WBC (Bld) [Ratio] 0 % 0-5 [facility] MCHC Auto (RBC) [Mass/Vol]Or dered By: Harpal Ramirez on 07-24-2022 MCHC (RBC) [Mass/Vol] 31.7 g/dL 32-36 [facility] No Panel InformationOrdered By: Harpal Ramirez on 07-24-2022 Estimated GFR (MDRD) Amer 66 mL/min >60 [facility] Comment on above: GFR Calc Estimated GFR (MDRD) Non-Af Amer 55 mL/min >60 [facility] Comment on above: Non- GFR Calc Thyroid Stimulating Hormone (TSH) 2.63 uIU/mL 0.358-3.74 [facility] Platelets bldOrdered By: Kanu nely James on 07-24-2022 Platelets (Bld) [#/Vol] 201 10*3/uL 150-450 [facility] Progress Noteon 07-24-2022 Progress Note See Scanned Progress Notes Normal [facility] Serum or plasma calcium tyrese urement (mass/volume)Ordered By: Harpal Ramirez on 07-24-2022 Calcium [Mass/Vol] 8.5 mg/dL 8.5-10.1 [facility] Serum or plasma creatinine m easurement (mass/volume)Ordered By: Harpal Ramirez on 07-24-2022 Creatinine [Mass/Vol] 1.03 mg/dL 0.55-1.02 [facility] Comment on above: The validity of the calculated GFR & GFRAA in patients over 70 years has not been determined. Clinical correlation is essential. Serum or plasma urea nitroge n measurement (mass/volume)Ordered By: Harpal Ramirez on 07-24-2022 Urea nitrogen [Mass/Vol] 25 mg/dL 7-18 [facility] Thin prep Papanicolaou smear with manual screeningOrdered By: Harpal Ramirez on 07-24-2022 Thin prep Papanicolaou smear with manual screening 5 5-15 [facility] CASE MANAGEMon 06-24-2022 CASE MANAGEM HNO ID: [id number] Author: LATRICE Munoz Service: Social Work Author Type: [employer] Type: Care Mgt Progress Note Filed: 06/24/2022 1:34 PM Note Text: BEHAVIORAL HEALTH SOCIAL WORK DISCHARGE NOTE SERVICE DATE: 06/24/2022 SERVICE TIME: 10:30 am Discharge Information Row Name Admission (Current) from 06/06/2022 in [facility] Adult Behavioral Health-[facility] Psychiatry Follow-Up Appointment Psychiatrist Name Pt to be followed at facility Guardian/Surrogate Decision Maker Name Daughter Jennifer Hidalgo is POA Discharge Disposition Discharge Disposition Fpc Fpc Referral Information Agency Name [facility] Address [address], [place] [address] Additional Discharge Information Additional Discharge Resources Jeana: [phone] 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 Yes. 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 Date of Trip: 06/24/22 Type of Service: BLS Non-emergency Is Patient Medicaid Pending: No PRESCRIPTIONS FILLED PRIOR TO DISCHARGE: No, patient discharged to [facility] ADDITIONAL NOTES: SW discussed Pt in treatment team and observed her on unit. No acute safety concerns at this time, no SI/HI/SIB or AVH. Family is aware and agreeable to discharge plan above. No further SW intervention required, per MD Pt is adequate for discharge. SIGNATURE: LATRICE Munoz PATIENT NAME: Chay Teague DATE: June 24, 2022 TIME: 11:00 AM [facility] CNDSon 06-24-2022 [facility] HNO ID: [id number] Author: John Penny MD Service: Psychiatry Author [...] performed Hospital Course: Patient was admitted to [facility] after she appeared to [facility] for wandering behavior; behavioral disturbances; was found to suffer UTI, received IV Rocephin. Patient brought in from home by family for confusion, suffered frontal lobe dementia and multiple medical problems, countdown to suffer UTI. Daughter brought the patient to the ED. Daughter is power of workers compensation defense attorney after she contacted by the local [...] she is on a waiting list for [facility]. 06/07/2022 Seen in day area Said [...] Patient Condition @ Discharge: Stable Discharge Disposition: Longterm Facility Complications: None ASSESSMENT: The status of [...] (Oral) Resp 18 (more content not included)... [facility] NURSING PROGon 06-24-2022 NURSING PROG HNO ID: [id number] Author: Robyn Roman RN Service: ? Author Type: Registered Nurse Type: Nursing Progress Note Filed: 06/24/2022 2:21 PM Note Text: Daily Note: Pt in day area at change of shift, meal and medication compliant. She will be discharged today, play writer attempted multiple time to call facility however was left on hold then disconnected. Broset Score-0 [facility] NURSING PROG HNO ID: [id number] Author: Zelda Serrano RN Service: Behavioral Health Author Type: Registered Nurse Type: Nursing Progress Note Filed: 06/24/2022 6:19 AM Note Text: Other: Pt is resting quietly in bed; monitor for safety q 15 min. Broset 1 0600 pt slept 7 hrs [facility] NURSING [facility] ID: [id number] Author: Albert Bryan RN Service: Behavioral Health [...] 15 minutes rounds observed at all times. [facility] NURSING PROGon 06-23-2022 NURSING [facility] ID: [id number] Author: Wesley Espinal RN Service: Nursing Author [...] pleasant. Broset:2 Q15 minute safety checks maintained [facility] NURSING [facility] ID: [id number] Author: Albert Brayn, LENIN Service: Behavioral Health Author Type: Registered [...] calm and pleasant. Will continue to monitor. [facility] NURSING PROGon 06-22-2022 [facility]URSING [facility] ID: [id number] Author: Robyn Roman RN Service: ? Author Type: Registered Nurse Type: Nursing Progress Note Filed: 06/22/2022 6:44 PM Note Text: Daily Note: Pt in bed at change of shift,meal and medication compliant, pt behavior is in control for most of the shift, she has been yelling out but easily redirectable. Broset Score-0 [facility] NURSING [facility] ID: [id number] Author: Mar Barros RN Service: Nursing Author Type: Registered Nurse Type: Nursing Progress Note Filed: 06/22/2022 6:48 AM Note Text: Nurse assumed care of patient at 1930. Patient sitting in christien chair in day area. Pleasant to speak [...] area reading a magazine, in good spirits. [facility] CASE MANAGEMon 06-21-2022 CASE MANAGEM HNO ID: [id number] Author: LATRICE Munoz Service: Social Work Author Type: [employer] Type: Care Mgt Progress Note Filed: 06/21/2022 1:20 PM Note Text: BEHAVIORAL HEALTH SOCIAL WORK PROGRESS NOTE SERVICE DATE: 06/21/2022 SERVICE TIME: 1320 Pt is scheduled for discharge on Friday06/24/22 to [facility]. Transport is scheduled for 2:00 pm via [facility] [employer] [facility] (trip #[id number]). Pt will need LOC and SW to submit for one on Friday morning prior to discharge. SW to follow. SIGNATURE: LATRICE Munoz PATIENT NAME: Chay Teague DATE: June 21, 2022 TIME: 8:53 AM [facility] NURSING PROGon 06-21-2022 NURSING PROG HNO ID: [id number] Author: Teo López RN Service: Behavioral Health [...] 15 min safety checks maintained. Will monitor. [facility] NURSING PROG HNO ID: [id number] Author: Taylor North RN Service: Nursing Author Type: Registered Nurse Type: Nursing Progress Note Filed: 06/21/2022 7:06 AM Note Text: Nursing Progress Note Patient Name: Chay Teague Patient Location: [id number] Daily Note: Received report and assumed [...] This note was completed by: Taylor North [facility] CASE MANAGEMon 06-20-2022 CASE MANAGEM HNO ID: [id number] Author: LATRICE Munoz Service: Social Work Author Type: [employer] Type: Care Mgt Progress Note Filed: 06/20/2022 2:18 PM Note Text: BEHAVIORAL HEALTH SOCIAL WORK PROGRESS NOTE SERVICE DATE: 06/20/2022 SERVICE TIME: 1:30 pm SW faxed updates to [facility] and spoke to director of procurement Estephania on the phone to notify of plan for discharge on Friday. SW to confirm discharge projection and schedule transportation. SW to follow. SIGNATURE: LATRICE Munoz PATIENT NAME: Chay Teague DATE: June 20, 2022 TIME: 2:17 PM [facility] NURSING PROGon 06-20-2022 NURSING PROG HNO ID: [id number] Author: Melisa Peña RN Service: Behavioral Health [...] cooperative with hands on care. Will monitor [facility] NURSING PROG HNO ID: [id number] Author: Zelda Serrano RN Service: Behavioral Health [...] am care completed then pt resumed sleeping. [facility] [id number] Author: Nakul Allan RN Service: ? Author [...] observation. No additional issues at this time. [facility] NURSING PROGon 06-19-2022 NURSING [facility] ID: [id number] Author: Teo López RN Service: Behavioral Health [...] continence. Assist x1 for ambulation. Pt is UNALAKLEET. Pt medication compliant whole with applesauce constant encouragement. No behavioral issues noted at this moment. No agitation noted. 15 min safety checks maintained. Will monitor [facility] NURSING [facility] ID: [id number] Author: Vitaliy Basurto RN Service: Nursing Author Type: Registered Nurse Type: Nursing Progress Note Filed: 06/19/2022 7:58 AM Note Text: Other: 2100 Pt was seen awake and pleasant upon approach sitting in a christine-chair in the day area but a little irritable when vital signs were taken. Pt is confused, UNALAKLEET and needs constant cuing and encouragement with [...] after diaper changed. 0700 Slept 7 hrs. [facility] CASE MANAGEMon 06-18-2022 CASE MANAGEM HNO ID: [id number] Author: LATRICE Munoz Service: Social Work Author Type: [employer] Type: Care Mgt Progress Note Filed: 06/18/2022 10:50 AM Note Text: BEHAVIORAL HEALTH SOCIAL WORK PROGRESS NOTE SERVICE DATE: 06/18/2022 SERVICE TIME: 0900 SW provided update to Pt's daughter Rachel Riojas ([phone]) as Pt's other daughter, Jennifer Hidalgo, is on vacation this week. Pt unable to discharge until at least 06/22/22 when new insurance (in network with [facility]) goes into effect. SW to follow. SIGNATURE: LATRICE Munoz PATIENT NAME: Chay Teague DATE: June 18, 2022 TIME: 9:18 AM [facility] NURSING PROGon 06-18-2022 NURSING PROG HNO ID: [id number] Author: Teo López RN Service: Behavioral Health [...] Tremors noted. Appetite is good. Pt is UNALAKLEET. A/O to self pleasantly confused. No behavioral issues noted. 15 min safety checks maintained. Will monitor. [facility] NURSING PROG HNO ID: [id number] Author: Taylor North RN Service: Nursing Author Type: Registered Nurse Type: Nursing Progress Note Filed: 06/18/2022 6:07 AM Note Text: Nursing Progress Note Patient Name: Chay Teague Patient Location: [id number] Daily Note: Received report and assumed [...] hrs, Broset-1. This note was completed by: [facility] THERAPY NTon 06-18-2022 THERAPY NT HNO ID: [id number] Author: Bre Roberts, PT Service: Physical Therapy Author Type: Physical Therapist Type: Therapy (PT/OT/Speech/Resp) Filed: 06/18/2022 4:15 PM Note Text: Physical Therapy Treatment SERVICE DATE: 06/18/2022 SERVICE TIME: 1514 to 1541 ROOM: [id number] Recommended Discharge Disposition: Subacute/SNF Recommended Discharge Disposition [...] Past Medical History: advanced age, BMI 34.17; UNALAKLEET, HTN, asthma, hypothyroid, dementia, anxiety/depression Response to [...] family checks in at night. Assistance Available: press operator meat Prior Functional Level: Required Assistance Assistance Required [...] minimal verbalizations, limited engagement due to significant UNALAKLEET; states name and CURRENT FUNCTIONAL STATUS: Most [...] resolve all f (more content not included)... [facility] NURSING PROGon 06-17-2022 NURSING PROG HNO ID: [id number] Author: Melisa Peña RN Service: Behavioral Health [...] calm and cooperative will monitor broset 1 [facility] NURSING PROG HNO ID: [id number] Author: Vitaliy Basurto RN Service: Nursing Author [...] 8 hrs. Cooperative with hands on care. [facility] NURSING PROGon 06-16-2022 NURSING PROG HNO ID: [id number] Author: Manda Proctor RN Service: Nursing Author [...] visit this afternoon. Will continue to monitor. [facility] NURSING PROG HNO ID: [id number] Author: Vitaliy Basurto RN Service: Nursing Author [...] Broset -1. 0700 Slept for 7 hrs. [facility] NURSING PROGon 06-15-2022 NURSING PROG HNO ID: [id number] Author: Soniya Hubbard RN Service: Nursing Author Type: Registered Nurse Type: Nursing Progress Note Filed: 06/15/2022 1:54 PM Note Text: Nursing Progress Note Topic of Note: Daily Note Chay Teague [id number] Assumed care of the pt at 0700. The pt is AANDOX1, confused and forgetful. Pt C/O no pain or discomfort at this time. The pt is disruptive at times calling out "please help me help me " while tapping on the table. Pt is redirectable. The pt is medication compliant whole. The pt is pleasant on approach.the pt is UNALAKLEET. The pt is an assist for all care. The pt is incontinent. Pt up in the day area for close monitoring. 15 min safety checks maintained. Will continue to monitor. This note was completed by: Soniya Hubbard [facility] CASE MANAGEMon 06-14-2022 CASE MANAGEM HNO ID: [id number] Author: LATRICE Munoz Service: Social Work Author Type: [employer] Type: Care Mgt Progress Note Filed: 06/14/2022 2:38 PM Note Text: BEHAVIORAL HEALTH SOCIAL WORK PROGRESS NOTE SERVICE DATE: 06/14/2022 SERVICE TIME: 1320 SW called Estephania in [facility] admissions ([phone]) and provided detailed update. SW to await return phone call. No specific discharge date identified at this time. SW to follow. Update 1430: ASHLEY received return call from facility stating that admission would have to wait until appropriate insurance is in place on 06/22/22. SIGNATURE: LATRICE Munoz PATIENT NAME: Chay Teague DATE: June 14, 2022 TIME: 8:31 AM [facility] NURSING PROGon 06-14-2022 NURSING PROG HNO ID: [id number] Author: Mendez Nguyen RN Service: ? Author [...] Date: June 14, 2022 Time: 9:26 PM [facility] NURSING PROG HNO ID: [id number] Author: Corrina Chandler RN Service: Nursing Author Type: Registered Nurse Type: Nursing Progress Note Filed: 06/14/2022 7:07 PM Note Text: Other: Pt. Is visible on this unit. No s/s of distress noted. Compliant with medications. Continues to be confused. Constantly asking staff for help and if she's ok. Fair appetite for meals. Will continue to monitor. [facility] NURSING PROG HNO ID: [id number] Author: Albert Bryan RN Service: Behavioral Health [...] this time asleep. Will continue to monitor. [facility] CASE MANAGEMon 06-13-2022 CASE MANAGEM HNO ID: [id number] Author: LATRICE Munoz Service: Social Work Author Type: [employer] Type: Care Mgt Progress Note Filed: 06/13/2022 [...] Daughter was able to complete enrollment for [facility] dual advantage, effective date 06/22/22. SW to update facility and determine particulars of admission policy regarding future coverage. SW to follow. SIGNATURE: LATRICE Munoz PATIENT NAME: Chay Teague DATE: June 13, 2022 TIME: 11:10 AM [facility] NURSING PROGon 06-13-2022 NURSING PROG HNO ID: [id number] Author: Melisa Peña, LENIN Service: Behavioral Health [...] visit this yudith will monitor broset 2 [facility] NURSING PROG HNO ID: [id number] Author: Vitaliy Basurto RN Service: Nursing Author Type: Registered Nurse Type: Nursing Progress Note Filed: 06/13/2022 6:07 AM Note Text: Other: 0000 Assumed care of pt. Received pt sleeping in bed, no signs of distress noted. No behavioral issue noted. Safety precautions maintained. 0700 Pt slept well for 9 hrs throughout the night. Behavior in control. Broset -1 (confused) [facility] NUTRITIONon 06-13-2022 NUTRITION HNO ID: [id number] Author: Yoly Pan RD Service: Nutrition Therapy [...] DATE: June 13, 2022 TIME: 1:14 PM [facility] CASE MANAGEMon 06-12-2022 CASE MANAGEM HNO ID: [id number] Author: LATRICE Munoz Service: Social Work Author Type: [employer] Type: Care Mgt Progress Note Filed: 06/12/2022 1:50 PM Note Text: BEHAVIORAL HEALTH SOCIAL WORK PROGRESS NOTE SERVICE DATE: 06/12/2022 SERVICE TIME: 1200 SW faxed clinicals to [facility]. director of operations informed that they are not in network with [place] Medicaid and only have wanderguard. ASHLEY called Pt's daughter to update and she states that she will apply for [facility] Medicaid and that [facility] remain their first FOC. ASHLEY updated facility as to same. SIGNATURE: LATRICE Munoz PATIENT NAME: Chay Teague DATE: June 12, 2022 TIME: 1:19 PM [facility] NURSING PROGon 06-12-2022 NURSING PROG HNO ID: [id number] Author: Leticia Barker RN Service: Nursing Author [...] given. Broset-1, will continue assault, fall precs. [facility] NURSING PROG HNO ID: [id number] Author: Iva Bailey RN Service: Behavioral Health [...] are noted, anxious, Will cont to monitor. [facility] NURSING PROG HNO ID: [id number] Author: Gilbert Watson RN Service: ? Author [...] yelling this morning while in day area. [facility] CASE MANAGEMon 06-11-2022 CASE MANAGEM HNO ID: [id number] Author: LATRICE Munoz Service: Social Work Author Type: Compounder [employer] Type: Care Mgt Progress Note Filed: 06/11/2022 1:50 PM Note Text: BEHAVIORAL HEALTH SOCIAL WORK PROGRESS NOTE SERVICE DATE: 06/11/2022 SERVICE TIME: 1300 SW received return call from Estephania in admissions at [facility]. She states that Pt would be coming LTC and would need a PAS (SW submitted for one and received favorable determination). She provided fax: [phone] for clinical information and her work cell for updates: [phone]. ASHLEY to send updated information. ASHLEY to follow. SIGNATURE: LATRICE Munoz PATIENT NAME: Chay Teague DATE: June 11, 2022 TIME: 9:17 AM [facility] NURSING PROGon 06-11-2022 NURSING PROG HNO ID: [id number] Author: Melisa Peña RN Service: Behavioral Health [...] bm. Pt calm and cooperative will monitor [facility] NURSING PROG HNO ID: [id number] Author: Taylor North RN Service: Nursing Author Type: Registered Nurse Type: Nursing Progress Note Filed: 06/11/2022 6:16 AM Note Text: Nursing Progress Note Patient Name: Chay Teague Patient Location: [id number] -[id number] Daily Note: Received report and assumed care of patient at 1900. Patient seen in day area in christine chair. Pleasantly confused. Friendly with other patients and staff. Can be intrusive at times, observed patting other Patient's knee. Investment Specialist redirected Patient and educated on appropriate behavior. Patient cooperative with teaching. Med compliant whole in applesauce, but did spit out Colace gel capsule several times due to confusion. Denies pain. Assist of 1 to room. Safety maintained. 0600 Patient slept 5 hrs, Broset-1. This note was completed by: Taylor North [facility] THERAPY NTon 06-11-2022 THERAPY NT HNO ID: [id number] Author: Amarilys Salguero PTA Service: Physical Therapy Author Type: Plastics Repairer Type: Therapy (PT/OT/Speech/Resp) Filed: 06/11/2022 1:16 PM Note Text: ----- Attestation signed by Lisa Perez, PT at 06/11/2022 1:24 PM I reviewed and agree with the documentation corresponding to this therapy visit. SIGNATURE: Lisa Perez, PT DATE: June 11, 2022 TIME: 1:24 PM ----- Physical Therapy Treatment SERVICE DATE: 06/11/2022 SERVICE TIME: 1155 to 1220 ROOM: [place] [address] Recommended Discharge Disposition: Home PT Recommended Discharge [...] family checks in at night. Assistance Available: press operator meat Prior Functional Level: Required Assistance Assistance Required [...] Potential: Go (more content not included)... Normal [facility] Valproate SerPl-mCncon 06-11 Valproate [Mass/Vol] 49.5 ug/mL Low 50.0-100.0 [facility] Comment on above: Order Comment: Speci men Type: BLOOD SPECIMENOrdering Facility: [facility] Address: [address] [place] [phone] Result Comment: Refe rence ranges and high/low indicator flags are provided as general guidelines only. The treating physician must determine appropriate target levels/dosing based on the specific clinical situation. Performed By: #### 4 086-5 ####[facility] LABORATORYCLIA [id number] [place] [id number] [facility] CASE MANAGEMon 06-10-2022 CASE MANAGEM HNO ID: [id number] Author: LATRICE Munoz Service: Social Work Author Type: Compounder [employer] Products Type: Care Mgt Progress Note Filed: 06/10/2022 2:07 PM Note Text: BEHAVIORAL HEALTH SOCIAL WORK PROGRESS NOTE SERVICE DATE: 06/10/2022 SERVICE TIME: 1300 SW placed call to [facility] admission department. SW informed admission director [...] DATE: June 10, 2022 TIME: 2:05 PM [facility] NURSING PROGon 06-10-2022 NURSING PROG HNO ID: [id number] Author: Melisa Peña RN Service: Behavioral Health Author Type: Registered Nurse Type: Nursing Progress Note Filed: 06/10/2022 5:20 PM Note Text: Other: nursing [id number] was up on the unit seated in [...] cooperative with hands on care will monitor [facility] NURSING PROGon 06-09-2022 NURSING PROG HNO ID: [id number] Author: Mendez Nguyen RN Service: ? Author [...] Date: June 09, 2022 Time: 9:49 PM [facility] NURSING PROG HNO ID: [id number] Author: Teo López RN Service: Behavioral Health [...] 15 min safety checks maintained. Will monitor. [facility] NURSING PROGon 06-08-2022 NURSING PROG HNO ID: [id number] Author: Mendez Nguyen RN Service: ? Author [...] Date: June 08, 2022 Time: 10:32 PM [facility] NURSING PROG HNO ID: [id number] Author: Gilbert Watson RN Service: ? Author [...] remained cooperative with care, incontinent of bladder. [facility] CASE MANAGEMon 06-07-2022 CASE MANAGEM HNO ID: [id number] Author: LATRICE Munoz Service: Social Work Author Type: Compounder [employer] Type: Care Mgt Progress Note Filed: 06/07/2022 12:14 PM Note Text: BEHAVIORAL HEALTH SOCIAL WORK PROGRESS NOTE SERVICE DATE: 06/07/2022 SERVICE TIME: 12:00 pm Pt discussed in treatment team and observed on unit. Pt does appear more alert and organized than on previous day. She will remain inpatient through the weekend. SW to submit PAS on Friday (06/10/22) and follow units with [facility] with updated clinical information. SW to follow. SIGNATURE: LATRICE Munoz PATIENT NAME: Chay Teague DATE: June 07, 2022 TIME: 8:42 AM [facility] Lipid 1996 panelon 2 Cholesterol [Mass/Vol] 217 mg/dL High <200 [facility] Comment on above: Order Comment: Speci men Type: BLOOD SPECIMENOrdering Facility: [facility] Address: [address] [place], [place] [id number] Result Comment: <200 mg/dL, Desirable 200-239 mg/dL, Borderline high >239 mg/dL, High Performed By: #### 2 4331-1 ####[facility] LABORATORYCLIA [id number] [place] [address] [place] Cholesterol in HDL [Mass/Vol] 75 mg/dL Normal >39 [facility] Comment on above: Order Comment: Speci men Type: BLOOD SPECIMENOrdering Facility: [facility] Address: [address] [place] [phone] Result Comment: 40-5 9 mg/dL, Acceptable >59 mg/dL, High: Negative risk factor for coronary heart disease <40 mg/dL, Low: Positive risk factor for coronary heart disease Performed By: #### 2 4331-1 ####[facility]ORATORYCLIA [id number] [place] [id number] [place] Cholesterol in LDL [Mass/Vol] 124 mg/dL High <100 [facility] Comment on above: Order Comment: Speci men Type: BLOOD SPECIMENOrdering Facility: [facility] Address: [address] [place] [address] Result Comment: <100 mg/dL, Optimal 100-129 mg/dL, Near optimal/above optimal 130-159 mg/dL, Borderline high 160-189 mg/dL, High >189 mg/dL, Very high Secondary prevention optimal LDL Cholesterol levels are recommended to be < 70 mg/dL Performed By: #### 2 4331-1 ####[facility]ORYCLIA [id number] [address] Cholesterol in LDL/Cholesterol in HDL [Mass ratio] 1.65 {ratio} Normal <2.54 [facility] Comment on above: Order Comment: Speci men Type: BLOOD SPECIMENOrdering Facility: [facility] Address: [address] [place] [address] Result Comment: Refe rence: 1. National Cholesterol Education Program ATP III Guideline At-A-Glance Quick Desk Reference: National Heart, Lung, and Blood [place]. National Institutes of Health. 2001: NIH Publication No. 01-3305. 2. An International Atherosclerosis Society position paper: global recommendations for the management of dyslipidemia: executive summary, Atherosclerosis. 2014: 232(2):410-413. Performed By: #### 2 4331-1 ####[facility]ORYCLIA [id number] [address] STATES [facility] Cholesterol in VLDL [Mass/Vol] 18 mg/dL Normal <30 [facility] Comment on above: Order Comment: Speci men Type: BLOOD SPECIMENOrdering Facility: [facility] Address: [address] [place] [address] Performed By: #### 2 4331-1 ####[facility]ORYCLIA [id number] [address] OF [place] Cholesterol non HDL [Mass/Vol] 142 mg/dL High <130 [facility] Comment on above: Order Comment: Speci men Type: BLOOD SPECIMENOrdering Facility: [facility] Address: [address] [place] [address] Result Comment: <130 mg/dL, Optimal 130-159 mg/dL, Near optimal/above optimal 160-189 mg/dL, Borderline high 190-219 mg/dL, High >219 mg/dL, Very high Secondary prevention optimal non HDL Cholesterol levels are recommended to be <100 mg/dL Performed By: #### 2 4331-1 ####[facility]ORYCLIA [id number] [address] STATES [facility] Cholesterol.total/Chol esterol in HDL [Mass ratio] 2.89 {ratio} Normal <5.10 [facility] Comment on above: Order Comment: Speci men Type: BLOOD SPECIMENOrdering Facility: [facility] Address: [address] [place] [address] Performed By: #### 2 4331-1 ####[facility]ORYCLIA [id number] [address] FASTING TIME 8 hrs Normal [facility] Comment on above: Order Comment: Speci men Type: BLOOD SPECIMENOrdering Facility: [facility] Address: [address] [place] [address] Performed By: #### 2 4331-1 ####[facility]ORYCLIA [id number] [address] STATES OF [facility] Triglyceride [Mass/Vol] 91 mg/dL Normal <150 [facility] Comment on above: Order Comment: Speci men Type: BLOOD SPECIMENOrdering Facility: [facility] Address: [address] [place] [address] Result Comment: <150 mg/dL, Normal 150-199 mg/dL, Borderline high 200-499 mg/dL, High >499 mg/dL, Very high Performed By: #### 2 4331-1 ####[facility]ORYCLIA [id number] [address] [place] NURSING PROGon 06-07-2022 NURSING PROG HNO ID: [id number] Author: Teo López RN Service: Behavioral Health [...] MOM given for c/o of constipation. Pt UNALAKLEET, hearing aid on. Pt needs to be fed. Pt answer to every question is "I dont know". Visible tremors on assessment. 15 min safety checks maintained. Will monitor. [facility] NURSING PROG HNO ID: [id number] Author: Gilbert Watson RN Service: ? Author [...] her 0600 medication, remained cooperative with care. [facility] ALLIED HEALTHon 06-06-2022 ALLIED HEALTH HNO ID: [id number] Author: MYRON Talbot Service: Recreational Therapy Author [...] 06, 2022 TIME: 8:26 AM PAGER/CONTACT #: [facility] ALLIED HEALTH HNO ID: [id number] Author: MYRON Talbot Service: Recreational Therapy Author [...] 06, 2022 TIME: 8:20 AM PAGER/CONTACT #: [facility] CASE MGT INIT Michelle 2021 CASE MGT INIT ROSINA HNO ID: [id number] Author: LATRICE Munoz Service: Social Work Author Type: Compounder [employer] Products Type: Care Mgt Initial Assessment Filed: 06/06/2022 12:23 PM Note Text: BEHAVIORAL HEALTH SOCIAL WORK/CARE MANAGEMENT ASSESSMENT AND DISCHARGE PLAN SERVICE DATE: 06/06/2022 SERVICE TIME: 11:00 am Reason for Admission: Per intake: "Chay Teague is a 77 year old female brought in to [facility] ED from Home by family for confusion. [...] not steal the car back for her. Investment Specialist attempted interview with pt telephonically. It was [...] information obtained from pt's daughter, Jennifer Hidalgo ([phone]). Daughter reports that pt has underlying dementia, [...] with pt being on the waitlist at [facility]." Legal Status: Involuntary - Medical Certificate and awaiting POA consent Important Contacts: Primary Contact Name: Jennifer Hidalgo / Relationship: Daughter / / Does the patient/customer field representative consent to contact with the above [...] Chay Teague was born and raised in [place], [place] by her biological parents. 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 No In the past 6 months, have you made plans/preparations and/or had an intent to act upon these suicidal ideas/thoughts? No Has Patient Been Hospitalized Previously for Psychiatric Reasons? No, Patient/Tile Mechanic Helper denies Substance Use and Treatment History: Patient/Tile Mechanic Helper Denies Lab Results Negative for Tested Substances Do special considerations/accommodat ions need to be made (i.e. preferred language, literacy, gender identity, physical disability such as deaf or blind, etc)? No, Patient/Tile Mechanic Helper Denies Are there practices or beliefs that may affect or influence treatment? No, Patient/Tile Mechanic Helper Denies Patient Strengths/Protective Factors (Minimum of Two): Sobriety Stable Housing Stabl (more content not included)... Normal [facility] CONSULTon 06-06-2022 CONSULT HNO ID: [id number] Author: Beba Bray MD Service: ? Author [...] Medical clearance , Pt was transferred to [facility] for further psychiatric treatment. 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 [facility] ED NOTEon 06-06-2022 ED NOTE HNO ID: [id number] Author: Zaid Cuello RN Service: ? Author Type: Registered Nurse Type: ED Notes Filed: 06/06/2022 3:47 AM Note Text: SBAR report to [facility] transport team, patient care handed off without incident. [facility] ED NOTE HNO ID: [id number] Author: Liz Perry RN Service: ? Author Type: Registered Nurse Type: ED Notes Filed: 06/06/2022 2:37 AM Note Text: Pt report called to Riana spoke with RN. [facility] ED NOTE HNO ID: [id number] Author: Liz Perry RN Service: ? Author Type: Registered Nurse Type: ED Notes Filed: 06/06/2022 12:48 AM Note Text: Intake on the phone with RN about admission. [facility] ED NOTE HNO ID: [id number] Author: Liz Perry RN Service: ? Author Type: Registered Nurse Type: ED Notes Filed: 06/06/2022 12:49 AM Note Text: Pt is still attempting to get out of bed and is restless, MD made aware and medications ordered, [facility] ED NOTE HNO ID: [id number] Author: Liz Perry RN Service: ? Author Type: Registered Nurse Type: ED Notes Filed: 06/06/2022 12:22 AM Note Text: Intake attempted to interview pt. [facility] ED NOTE HNO ID: [id number] Author: Liz Perry RN Service: ? Author Type: Registered Nurse Type: ED Notes Filed: 06/05/2022 10:59 PM Note Text: Intake on the phone with MD [facility] ED NOTE HNO ID: [id number] Author: Liz Perry RN Service: ? Author Type: Registered Nurse Type: ED Notes Filed: 06/05/2022 10:46 PM Note Text: Pts daughter on the phone with intake [facility] ED NOTE HNO ID: [id number] Author: Liz Perry RN Service: ? Author Type: Registered Nurse Type: ED Notes Filed: 06/05/2022 10:02 PM Note Text: Pt is sleeping in bed with call light in reach. Equal chest rise and fall noted with regular respirations. Bed is locked and in the lowest position. No acute distress noted. Safety maintained. Will continue to monitor. [facility] ED PROV NOTEon 06-06-2022 ED PROV NOTE HNO ID: [id number] Author: Mendez Arellano MD Service: Emergency Medicine Author Type: Physician Type: ED Provider Notes Filed: 06/06/2022 4:14 AM Note Text: ED CONTINUATION OF CARE NOTE Code Status: Full Code Assumed care from: Dr Taylor Presentation / Findings / Interventions / Plan / Items to Follow Up: Patient signed out pending admission to geriatric at [facility]. Central intake arrange for patient to be admitted to [facility] geriatric psych and is accepting. ED Course [...] PAGER/CONTACT #: Mendez Arellano MD 06/06/22413 Normal [facility] HISTORY PHYSICALon HISTORY PHYSICAL HNO ID: [id number] Author: John Penny MD Service: Psychiatry Author Type: Physician Type: HANDP Filed: 06/07/2022 5:42 AM Note Text: [facility] Behavioral Health Admit Note ORIGINATOR: John Penny MD CHAY TEAGUE ACCTNUM: [id number] SERVICE: [facility] LOCATION: [place] [address] ATTENDING PHYSICIAN: JOHN PENNY DATE OF SERVICE: 06/06/2022 IDENTIFYING INFORMATION: The patient is a 77-year-old female. HISTORY OF PRESENT ILLNESS: Patient was admitted to [facility] after she appeared to [facility] for wandering behavior; behavioral disturbances; was found to suffer UTI, received IV Rocephin. Patient brought in from home by family for confusion, suffered frontal lobe dementia and multiple medical problems, countdown to suffer UTI. Daughter brought the patient to the ED. Daughter is power of workers compensation defense attorney after she contacted by the local [...] she is on a waiting list for [facility]. PAST PSYCHIATRIC HISTORY: Patient has extensive [...] home. Daughter is supportive and power of workers compensation defense attorney. She has a home health aide. [...] Date Value 06/05/2022 (more content not included)... [facility] NURSING PROGon 06-06-2022 NURSING PROG HNO ID: [id number] Author: Manda Proctor RN Service: Nursing Author [...] Poor appetite- refused to eat all meals. [facility] NURSING PROG HNO ID: [id number] Author: Wesley Espinal RN Service: Nursing Author Type: Registered Nurse Type: Nursing Progress Note Filed: 06/06/2022 5:24 AM Note Text: Transfer note: Patient brought onto the unit in stable condition via EMS from [facility]. Patient is tearful and yelling upon [...] 77 year old female brought in to [facility] ED from Home by family for confusion. [...] not steal the car back for her. Investment Specialist attempted interview with pt telephonically. It was [...] information obtained from pt's daughter, Jennifer Hidalgo ([phone]). Daughter reports that pt has underlying dementia, [...] with pt being on the waitlist at [facility]. [facility] NURSING PROG HNO ID: [id number] Author: Zelda Serrano RN Service: Behavioral Health [...] 06/09/22 Progress Towards Short Term Goals: Progressing Senior Developer Goals: Patient will have achieved optimal level of functioning;Patient will verbalize benefits of compliance with medication and treatment after discharge;Patient will participate in cognitive, physical and social activities Target Date Senior Developer Goals: 06/13/22 Progress Towards Nursing Home Goals: Progressing Interventions - Nursing: Offer [...] DATE: June 06, 2022 TIME: 5:12 AM [facility] THERAPY NTon 06-06-2022 THERAPY NT HNO ID: [id number] Author: Shellie Saavedra OT/L Service: Occupational Therapy Author Type: Occupational Therapist Type: Therapy (PT/OT/Speech/Resp) Filed: 06/07/2022 9:56 AM Note Text: Occupational Therapy Evaluation SERVICE DATE: 06/06/2022 SERVICE TIME: 1330 to 1355 ROOM: [place] [address] Recommended Discharge Disposition: Home OT Anticipated Discharge [...] family checks in at night. Assistance Available: press operator meat Prior Functional Level: Required Assistance Assistance Required [...] of daily living (ADL) Interventions Provided: Evaluation;Self Senior Living Management (12023) $ Evaluation-Low (35559) Billed Units: 1 unit Self Senior Living Management (73579) Treatment Minutes: 10 $ Self Senior Living Management (68762) Billed Units: 1 unit Timed Code Treatment (minutes): 10 Skilled Treatment Time (minutes): 25 Please see discipline specific clinical documentation flowsheet for complete details for this therapy evaluation/treatment. SIGNATURE: Shellie Saavedra OT/Sheldon PATIENT NAME: Chay Teague DATE: June 06, 2022 TIME: 1:30 PM [facility] THERAPY NT HNO ID: [id number] Author: Bonnie Nuñez PT Service: Physical Therapy Author Type: Physical Therapist Type: Therapy (PT/OT/Speech/Resp) Filed: 06/06/2022 8:41 AM Note Text: Physical Therapy Evaluation SERVICE DATE: 06/06/2022 SERVICE TIME: 809 to 819 ROOM: [place] [address] Recommended Discharge Disposition: Home PT Recommended Discharge [...] family checks in at night. Assistance Available: press operator meat Prior Functional Level: Required Assistance Assistance Required [...] on feet Interventions Provided: Evaluation $ Evaluation-Low (09213) Billed Units: 1 unit Training AND education [...] DATE: June 06, 2022 TIME: 8:40 AM [facility] HNO ID: [id number] Author: RT Sabrina(R) Service: Radiology Author Type: Technologist Type: [facility] Filed: 06/05/2022 8:12 PM Note Text: [...] RT Sabrina(R) June 05, 2022 8:12 PM [facility] HNO ID: [id number] Author: JESSIE Duke Service: Radiology Author Type: Technologist Type: [facility] Filed: 06/05/2022 7:52 PM Note Text: [...] Duke June 05, 2022 7:52 PM Normal [facility] Bacteria Ur Culton 2 Bacteria identified Cx Nom (U) [id number] Abnormal [facility] Comment on above: Order Comment: Speci men Type: URINE SPECIMENOrdering Facility: [facility] Address: [address] [place] [address] Result Comment: <10, 000 CFU/ml Mixed microbiota No further workup. Mixed microbiota can be due to???urine???contamination with skin bacteria at time of collection or presence of a long-term urinary catheter. If a new culture is needed, please consider re-education of the patient on proper midstream collection technique or straight catheterization for???urine???collection. Performed By: #### 6 30-4 ####[facility] LABCLIA [id number] [place] [address] [place] CBC W Auto Differential pane l (Bld)on 06-05-2022 Basophils (Bld) [#/Vol] 0.07 10*3/uL Normal <0.11 [facility] Comment on above: Order Comment: Speci men Type: BLOOD SPECIMENOrdering Facility: [facility] Address: [address] [place] [address] Performed By: #### 5 7021-8 ####[facility]ATORYCLIA [id number] [address] STATES [place] Basophils/100 WBC (Bld) 0.8 % Normal [facility] Comment on above: Order Comment: Speci men Type: BLOOD SPECIMENOrdering Facility: [facility] Address: [address] [place] [address] Performed By: #### 5 7021-8 ####[facility]ORATORYCLIA [id number] [address] [place] Differential cell count method Nom (Bld) Auto Normal [facility] Comment on above: Order Comment: Speci men Type: BLOOD SPECIMENOrdering Facility: [facility] Address: [address] [place] [address] Performed By: #### 5 7021-8 ####[facility]ORATORYCLIA [id number] [place] [address] [place] Eosinophils (Bld) [#/Vol] 0.34 10*3/uL Normal <0.46 [facility] Comment on above: Order Comment: Speci men Type: BLOOD SPECIMENOrdering Facility: [facility] Address: [address] [place] [address] Performed By: #### 5 7021-8 ####LEUNG LABORATORYCLIA [id number] [address] [place] Eosinophils/100 WBC (Bld) 4.0 % Normal [facility] Comment on above: Order Comment: Speci men Type: BLOOD SPECIMENOrdering Facility: [facility] Address: [address] [place] [address] Performed By: #### 5 7021-8 ####LEUNG LABORATORYCLIA [id number] [address] Erythrocyte distribution width (RBC) [Ratio] 14.5 % Normal 11.5-15.0 [facility] Comment on above: Order Comment: Speci men Type: BLOOD SPECIMENOrdering Facility: [facility] Address: [address] [place] [address] Performed By: #### 5 7021-8 ####LEUNG LABORATORYCLIA [id number] [address] [place] Hematocrit (Bld) [Volume fraction] 41.2 % Normal 36.0-46.0 [facility] Comment on above: Order Comment: Speci men Type: BLOOD SPECIMENOrdering Facility: [facility] Address: [address] [place] [address] Performed By: #### 5 7021-8 ####LEUNG LABORATORYCLIA [id number] [address] Hemoglobin (Bld) [Mass/Vol] 13.6 g/dL Normal 11.5-15.5 [facility] Comment on above: Order Comment: Speci men Type: BLOOD SPECIMENOrdering Facility: [facility] Address: [address] [place] [address] Performed By: #### 5 7021-8 ####LEUNG LABORATORYCLIA [id number] [address] IMMATURE GRAN % 0.5 % Normal [facility] Comment on above: Order Comment: Speci men Type: BLOOD SPECIMENOrdering Facility: [facility] Address: [address] [place] [address] Performed By: #### 5 7021-8 ####LEUNG LABORATORYCLIA [id number] [address] IMMATURE GRAN ABS 0.04 k/uL Normal <0.10 [facility] Comment on above: Order Comment: Speci men Type: BLOOD SPECIMENOrdering Facility: [facility] Address: [address] [place] [address] Performed By: #### 5 7021-8 ####LEUNG LABORATORYCLIA [id number] [address] [place] Lymphocytes (Bld) [#/Vol] 2.31 10*3/uL Normal 1.00-4.00 [facility] Comment on above: Order Comment: Speci men Type: BLOOD SPECIMENOrdering Facility: [facility] Address: [address] [place] [address] Performed By: #### 5 7021-8 ####LEUNG LABORATORYCLIA [id number] [address] Lymphocytes/100 WBC (Bld) 27.0 % Normal [facility] Comment on above: Order Comment: Speci men Type: BLOOD SPECIMENOrdering Facility: [facility] Address: [address] [place] [address] Performed By: #### 5 7021-8 ####LEUNG LABORATORYCLIA [id number] [address] MCH (RBC) [Entitic mass] 30.7 pg Normal 26.0-34.0 [facility] Comment on above: Order Comment: Speci men Type: BLOOD SPECIMENOrdering Facility: [facility] Address: [address] [place] [address] Performed By: #### 5 7021-8 ####LEUNG LABORATORYCLIA [id number] [address] MCHC (RBC) [Mass/Vol] 33.0 g/dL Normal 30.5-36.0 [facility] Comment on above: Order Comment: Speci men Type: BLOOD SPECIMENOrdering Facility: [facility] Address: [address] [place] [address] Performed By: #### 5 7021-8 ####LEUNG LABORATORYCLIA [id number] [address] MCV (RBC) [Entitic vol] 93.0 fL Normal 80.0-100.0 [facility] Comment on above: Order Comment: Speci men Type: BLOOD SPECIMENOrdering Facility: [facility] Address: [address] [place] [address] Performed By: #### 5 7021-8 ####LEUNG LABORATORYCLIA [id number] [address] Monocytes (Bld) [#/Vol] 0.75 10*3/uL Normal <0.87 [facility] Comment on above: Order Comment: Speci men Type: BLOOD SPECIMENOrdering Facility: [facility] Address: [address] [place] [address] Performed By: #### 5 7021-8 ####LEUNG LABORATORYCLIA [id number] [address] Monocytes/100 WBC (Bld) 8.8 % Normal [facility] Comment on above: Order Comment: Speci men Type: BLOOD SPECIMENOrdering Facility: [facility] Address: [address] [place] [address] Performed By: #### 5 7021-8 ####LEUNG LABORATORYCLIA [id number] [place] [address] [place] Neutrophils (Bld) [#/Vol] 5.04 10*3/uL Normal 1.45-7.50 [facility] Comment on above: Order Comment: Speci men Type: BLOOD SPECIMENOrdering Facility: [facility] Address: [address] [place] [address] Performed By: #### 5 7021-8 ####LEUNG LABORATORYCLIA [id number] [address] [place] Neutrophils/100 WBC (Bld) 58.9 % Normal [facility] Comment on above: Order Comment: Speci men Type: BLOOD SPECIMENOrdering Facility: [facility] Address: [address] [place] [address] Performed By: #### 5 7021-8 ####LEUNG LABORATORYCLIA [id number] [place] [address] [place] Nucleated RBC (Bld) [#/Vol] 10*3/uL Normal <0.01 [facility] Comment on above: Order Comment: Speci men Type: BLOOD SPECIMENOrdering Facility: [facility] Address: [address] [place] [address] Performed By: #### 5 7021-8 ####LEUNG LABORATORYCLIA [id number] [address] [place] Nucleated RBC/100 WBC (Bld) [Ratio] 0.0 /100 WBC Normal [facility] Comment on above: Order Comment: Speci men Type: BLOOD SPECIMENOrdering Facility: [facility] Address: [address] [place] [address] Performed By: #### 5 7021-8 ####LEUNG LABORATORYCLIA [id number] [place] [address] [place] Platelet mean volume (Bld) [Entitic vol] 10.1 fL Normal 9.0-12.7 [facility] Comment on above: Order Comment: Speci men Type: BLOOD SPECIMENOrdering Facility: [facility] Address: [address] [place] [address] Performed By: #### 5 7021-8 ####LEUNG LABORATORYCLIA [id number] [place] [address] [place] [facility] [place] Platelets (Bld) [#/Vol] 283 10*3/uL Normal 150-400 [facility] Comment on above: Order Comment: Speci men Type: BLOOD SPECIMENOrdering Facility: [facility] Address: [address] [place] [address] Performed By: #### 5 7021-8 ####LEUNG LABORATORYCLIA [id number] [place] [address] [place] RBC (Bld) [#/Vol] 4.43 10*6/uL Normal 3.90-5.20 [facility] Comment on above: Order Comment: Speci men Type: BLOOD SPECIMENOrdering Facility: [facility] Address: [address] [place] [address] Performed By: #### 5 7021-8 ####LEUNG LABORATORYCLIA [id number] [place] [address] [place] WBC (Bld) [#/Vol] 8.55 10*3/uL Normal 3.70-11.00 [facility] Comment on above: Order Comment: Speci men Type: BLOOD SPECIMENOrdering Facility: [facility] Address: [address] [place] [address] Performed By: #### 5 7021-8 ####LEUNG LABORATORYCLIA [id number] [address] [place] BRAIN WO IVCONon 06-05-[address] BRAIN WO IVCON * * *Final Report* * * DATE OF EXAM: Jun 05 2022 8:06PM [facility] 0504 - CT BRAIN WO IVCON / [...] base and imaged soft tissues are unremarkable. Artist Consultant (topogram) images: Unremarkable. IMPRESSION: NO EVIDENCE OF AN ACUTE INTRACRANIAL PROCESS Personal Development Educator: INES Transcribe Date/Time: Jun 05 2022 8:12P Dictated by : ALICE MARINA MD This examination was interpreted and the report reviewed and electronically signed by: ALICE MARINA MD on Jun 05 2022 8:13PM EST [id number] Normal [facility] Comprehensive metabolic 2000 panelon 06-05-2022 Albumin [Mass/Vol] 4.0 g/dL Normal 3.9-4.9 [facility] Comment on above: Order Comment: Specrina naranjo Type: BLOOD SPECIMENOrdering Facility: [facility] Address: [address] [id number] Performed By: #### 2 4323-8, 3016-3 ####ROCKLIN LABORATORYCLIA [id number] [address] STATES OF [facility] ALP [Catalytic activity/Vol] 92 U/L Normal 34-123 [facility] Comment on above: Order Comment: Bisi naranjo Type: BLOOD SPECIMENOrdering Facility: [facility] Address: [address] Performed By: #### 2 4323-8, 3016-3 ####LEUNG LABORATORYCLIA [id number] [place], [place] [address] [place] [address] [place] [facility] ALT [Catalytic activity/Vol] 14 U/L Normal 7-38 [facility] Comment on above: Order Comment: Speci men Type: BLOOD SPECIMENOrdering Facility: [facility] Address: [address] [address] Performed By: #### 2 4323-8, 3016-3 ####LEUNG LABORATORYCLIA [id number] [place] [address] [place] Anion gap [Moles/Vol] 9 mmol/L Normal 9-18 [facility] Comment on above: Order Comment: Speci men Type: BLOOD SPECIMENOrdering Facility: [facility] Address: [address] [address] Performed By: #### 2 4323-8, 6-3 ####LEUNG LABORATORYCLIA [id number] [address] STATES [facility] AST [Catalytic activity/Vol] 22 U/L Normal 13-35 [facility] Comment on above: Order Comment: Speci men Type: BLOOD SPECIMENOrdering Facility: [facility] Address: [address] [address] Performed By: #### 2 4323-8, 6-3 ####LEUNG LABORATORYCLIA [id number] [place] [address] [place] Bilirubin [Mass/Vol] 0.5 mg/dL Normal 0.2-1.3 [facility] Comment on above: Order Comment: Speci men Type: BLOOD SPECIMENOrdering Facility: [facility] Address: [address] [address] Performed By: #### 2 4323-8, 3016-3 ####LEUNG LABORATORYCLIA [id number] [address] [place] Calcium [Mass/Vol] 9.5 mg/dL Normal 8.5-10.2 [facility] Comment on above: Order Comment: Speci men Type: BLOOD SPECIMENOrdering Facility: [facility] Address: [address] Performed By: #### 2 4323-8, 6-3 ####LEUNG LABORATORYCLIA [id number] [place] [address] [place] [facility] Chloride [Moles/Vol] 107 mmol/L High 97-105 [facility] Comment on above: Order Comment: Speci men Type: BLOOD SPECIMENOrdering Facility: [facility] Address: [address] [place] [address] Performed By: #### 2 4323-8, 6-3 ####LEUNG LABORATORYCLIA [id number] [place] [address] [place] CO2 [Moles/Vol] 27 mmol/L Normal 22-30 [facility] Comment on above: Order Comment: Speci men Type: BLOOD SPECIMENOrdering Facility: [facility] Address: [address] [place] [address] Performed By: #### 2 4323-8, 3015-3 ####LEUNG LABORATORYCLIA [id number] [address] [place] Creatinine [Mass/Vol] 0.84 mg/dL Normal 0.58-0.96 [facility] Comment on above: Order Comment: Speci men Type: BLOOD SPECIMENOrdering Facility: [facility] Address: [address] [place] [address] Performed By: #### 2 4323-8, 6-3 ####LEUNG LABORATORYCLIA [id number] [address] [place] ESTIMATED GLOMERULAR FILTRATION RATE 71 mL/min/1.73m??? Normal >=60 [facility] Comment on above: Order Comment: Speci men Type: BLOOD SPECIMENOrdering Facility: [facility] Address: [address] [place] [address] Result Comment: Farheen mated Glomerular Filtration Rate [...] By: #### 2 4323-8, 6-3 ####LEUNG LABORATORYCLIA [id number] [place] [address] [place] Glucose [Mass/Vol] 91 mg/dL Normal 74-99 [facility] Comment on above: Order Comment: Bisi naranjo Type: BLOOD SPECIMENOrdering Facility: [facility] Address: [address] [address] Result Comment: The [place] [employer] (ADA) provides guidance for cutoff [...] Standards of Medical Care in Diabetes 2016, [place] [employer]. Diabetes Care. 2016.39(Suppl 1). Performed By: #### 2 4323-8, 6-3 ####LEUNG LABORATORYCLIA [id number] [place] [address] [place] Potassium [Moles/Vol] 3.8 mmol/L Normal 3.7-5.1 [facility] Comment on above: Order Comment: Bisi naranjo Type: BLOOD SPECIMENOrdering Facility: [facility] Address: [address] [id number] Performed By: #### 2 4323-8, 6-3 ####LEUNG LABORATORYCLIA [id number] [place] [address] [place] Protein [Mass/Vol] 6.9 g/dL Normal 6.3-8.0 [facility] Comment on above: Order Comment: Bisi naranjo Type: BLOOD SPECIMENOrdering Facility: [facility] Address: [address] [id number] Performed By: #### 2 4323-8, 3016-3 ####ROCKLIN LABORATORYCLIA [id number] [address] Sodium [Moles/Vol] 143 mmol/L Normal 136-144 [facility] Comment on above: Order Comment: Speci men Type: BLOOD SPECIMENOrdering Facility: [facility] Address: [address] [place] [address] Performed By: #### 2 4323-8, 3016-3 ####ROCKLIN LABORATORYCLIA [id number] [address] Urea nitrogen [Mass/Vol] 28 mg/dL High 7-21 [facility] Comment on above: Order Comment: Speci men Type: BLOOD SPECIMENOrdering Facility: [facility] Address: [address] [place] [address] Performed By: #### 2 4323-8, 3016-3 ####ROCKLIN LABORATORYCLIA [id number] [address] ECG COMPLETEon 06-05-2022 ECG COMPLETE Ventricular Rate : 9 5 BPM Atrial Rate : 95 BPM P-R Interval : 172 ms QRS Duration : 114 ms Q-T Interval : 388 ms QTC Calculation(Bazett) : 487 ms Calculated P [place] : 42 degrees Calculated R [place] : -32 degrees Calculated T [place] : 32 degrees NORMAL SINUS RHYTHM WITH SINUS ARRHYTHMIA LEFT AXIS DEVIATION INCOMPLETE RIGHT BUNDLE BRANCH BLOCK MINIMAL VOLTAGE CRITERIA FOR LVH, MAY BE NORMAL VARIANT INFERIOR INFARCT , AGE UNDETERMINED T WAVE ABNORMALITY, CONSIDER ANTERIOR ISCHEMIA ABNORMAL ECG no STEMI 2036 Confirmed by MD MARLO, RICCARDO ([id number]), production editor CARON DIAZ ([id number]) on 06/06/2022 6:59:18 AM NAME : CHAY TEAGUE PID : [id number] : 1945 Gender : Female Race : Unknown ORD : [id number] Procedure Date : Jun 05 2022 20:37:48 Edit Date : Jun 06 2022 06:59:23 Diagnosis: NORMAL SINUS RHYTHM WITH SINUS ARRHYTHMIA LEFT AXIS DEVIATION INCOMPLETE RIGHT BUNDLE BRANCH BLOCK MINIMAL VOLTAGE CRITERIA FOR LVH, MAY BE NORMAL VARIANT INFERIOR INFARCT , AGE UNDETERMINED T WAVE ABNORMALITY, CONSIDER ANTERIOR ISCHEMIA ABNORMAL ECG no STEMI 2036 Confirmed by MD TAYLOR BENJAMIN ([id number]), production editor CARON DIAZ ([id number]) on 06/06/2022 6:59:18 AM Test Reason : Arrhythmia Location : 1 : ER ED Overread By : MD TAYLOR BENJAMIN Edited By : CARON DIAZ Referred By : , Acquired by : [place], [facility] ED NOTEon 06-05-2022 ED NOTE HNO ID: [id number] Author: Jame Leavitt RN Service: Nursing Author [...] self in triage. Denies SOB and CP. [facility] ED PROV NOTEon 06-05-2022 ED PROV NOTE HNO ID: [id number] Author: Riccardo Taylor DO Service: Emergency Medicine [...] cystitis without hematuria COVID-19 test performed per [facility] [place] policy for suspected COVID community exposure. MDM [...] who will discuss the case with psychiatry fashion design professor. 23:48 - Now intermittently agitated trying to get out of bed. QTc normal. Haldol 2 mg IV ordered. ED ATTENDING SIGN OUT NOTE Code Status: Full Code Presentation / Findings / Interventions / Plan / Items (more content not included)... Normal [facility] Ethanol [facility] 022 Ethanol [Mass/Vol] mg/dL Normal <11 [facility] Comment on above: Order Comment: Speci men Type: BLOOD SPECIMENOrdering Facility: [facility] Address: [address] [place] [address] Performed By: #### 5 643-2 ####ROCKLIN LABORATORYCLIA [id number] [place] [address] [place] SARS-CoV-2 RNA Resp Ql TATI+p robeon 06-05-2022 SARS-CoV-2 (COVID-19) RNA TATI+probe Ql (Resp) SARS-CoV-2 (Agent of COVID-19) Not Detected by RT-PCR or equivalent method. Normal Not Detected [facility] Comment on above: Order Comment: Speci men Type: SWAB OF INTERNAL NOSEOrdering Facility: [facility] Address: [address] [address] Result Comment: This test has been authorized by FDA under an Emergency Use Authorization (EUA). Performed By: #### 9 4500-6 ####LEUNG LABORATORYCLIA [id number] [address] [place] TOX SCREEN ROUT URon 022 Amphetamines Confirm (U) [Mass/Vol] Negative Normal Negative [facility] Comment on above: Order Comment: Speci men Type: URINE SPECIMENOrdering Facility: [facility] Address: [address] [place] [address] Result Comment: Cuto ff threshold at 1000 ng/mL. Performed By: #### U TOX2 ####LEUNG LABORATORYCLIA [id number] [address] [place] BARBITURATES, URINE Negative Normal Negative [facility] Comment on above: Order Comment: Speci men Type: URINE SPECIMENOrdering Facility: [facility] Address: [address] [place] [address] Result Comment: Cuto ff threshold at 200 ng/mL. Performed By: #### U TOX2 ####LEUNG LABORATORYCLIA [id number] [place] [address] [place] BENZODIAZEPINES, UR Negative Normal Negative [facility] Comment on above: Order Comment: Speci men Type: URINE SPECIMENOrdering Facility: [facility] Address: [address] [place] [address] Result Comment: Cuto ff threshold at 200 ng/mL. Performed By: #### U TOX2 ####LEUNG LABORATORYCLIA [id number] [place] [address] [place] CANNABINOIDS,URINE Negative Normal Negative [facility] Comment on above: Order Comment: Speci men Type: URINE SPECIMENOrdering Facility: [facility] Address: [address] [place] [address] Result Comment: Cuto ff threshold at 50 ng/mL. Performed By: #### U TOX2 ####LEUNG LABORATORYCLIA [id number] [place] [address] [place] Cocaine Ql (U) Negative Normal Negative [facility] Comment on above: Order Comment: Speci men Type: URINE SPECIMENOrdering Facility: [facility] Address: [address] [place] [address] Result Comment: Cuto ff threshold at 300 ng/mL. Performed By: #### U TOX2 ####LEUNG LABORATORYCLIA [id number] [address] STATES [facility] Ethanol (U) [Mass/Vol] <11 Normal <11 [facility] Comment on above: Order Comment: Speci men Type: URINE SPECIMENOrdering Facility: [facility] Address: [address] [place] [address] Performed By: #### U TOX2 ####LEUNG LABORATORYCLIA [id number] [address] [place] Opiates Screen Ql (U) Negative Normal Negative [facility] Comment on above: Order Comment: Speci men Type: URINE SPECIMENOrdering Facility: [facility] Address: [address] [place] [address] Result Comment: Cuto ff threshold at 300 ng/mL. Performed By: #### U TOX2 ####LEUNG LABORATORYCLIA [id number] [address] oxyCODONE cutoff Screen (U) [Mass/Vol] Negative Normal Negative [facility] Comment on above: Order Comment: Speci men Type: URINE SPECIMENOrdering Facility: [facility] Address: [address] [place] [address] Result Comment: Cuto ff threshold at 100 ng/mL. Performed By: #### U TOX2 ####LEUNG LABORATORYCLIA [id number] [address] [place] Phencyclidine Ql (U) Negative Normal Negative [facility] Comment on above: Order Comment: Speci men Type: URINE SPECIMENOrdering Facility: [facility] Address: [address] [place] [address] Result Comment: Cuto ff threshold at 25 ng/mL. Performed By: #### U TOX2 ####LEUNG LABORATORYCLIA [id number] [place] [address] [place] TSH SerPl-aCncon 06-05-2022 TSH Qn 4.220 m[IU]/L High 0.270-4.200 [facility] Comment on above: Order Comment: Speci men Type: BLOOD SPECIMENOrdering Facility: [facility] Address: [address] [place] [address] Performed By: #### 2 4323-8, 3016-3 ####LEUNG LABORATORYCLIA [id number] [place] [address] [place] URINALYSIS, REFLEX MICROSCOP ICon 06-05-2022 Bacteria LM.HPF (Urine sed) [#/Area] Moderate Abnormal None Seen [facility] Comment on above: Order Comment: Speci men Type: URINE SPECIMENOrdering Facility: [facility] Address: [address] [place] [address] Performed By: #### L [id number] ####LEUNG LABORATORYCLIA [id number] [address] [place] Bilirubin Ql (U) Negative Normal Negative [facility] Comment on above: Order Comment: Speci men Type: URINE SPECIMENOrdering Facility: [facility] Address: [address] [place] [address] Performed By: #### L [id number] ####LEUNG LABORATORYCLIA [id number] [address] [place] Clarity (Unsp spec) Slightly Cloudy Abnormal Clear [facility] Comment on above: Order Comment: Speci men Type: URINE SPECIMENOrdering Facility: [facility] Address: [address] [place] [address] Performed By: #### L [id number] ####LEUNG LABORATORYCLIA [id number] [address] Color (U) Yellow Normal Yellow [facility] Comment on above: Order Comment: Speci men Type: URINE SPECIMENOrdering Facility: [facility] Address: [address] [place] [address] Performed By: #### L [id number] ####LEUNG LABORATORYCLIA [id number] [address] [place] Epithelial cells LM.HPF (Urine sed) [#/Area] Few Normal [facility] Comment on above: Order Comment: Speci men Type: URINE SPECIMENOrdering Facility: [facility] Address: [address] [place] [address] Result Comment: Few Performed By: #### L [id number] ####LEUNG LABORATORYCLIA [id number] [address] Glucose Test strip (U) [Mass/Vol] Negative Normal Negative [facility] Comment on above: Order Comment: Speci men Type: URINE SPECIMENOrdering Facility: [facility] Address: [address] [place] [address] Performed By: #### L [id number] ####LEUNG LABORATORYCLIA [id number] [address] Hemoglobin Ql (U) Trace Abnormal Negative [facility] Comment on above: Order Comment: Speci men Type: URINE SPECIMENOrdering Facility: [facility] Address: [address] [place] [address] Performed By: #### L [id number] ####LEUNG LABORATORYCLIA [id number] [address] [place] Ketones Ql (U) Negative Normal Negative [facility] Comment on above: Order Comment: Speci men Type: URINE SPECIMENOrdering Facility: [facility] Address: [address] [place] [address] Performed By: #### L [id number] ####LEUNG LABORATORYCLIA [id number] [address] Leukocyte esterase Test strip Ql (U) 2+ Abnormal Negative [facility] Comment on above: Order Comment: Speci men Type: URINE SPECIMENOrdering Facility: [facility] Address: [address] [place] [address] Performed By: #### L [id number] ####LEUNG LABORATORYCLIA [id number] [address] [place] Nitrite Ql (U) Negative Normal Negative [facility] Comment on above: Order Comment: Speci men Type: URINE SPECIMENOrdering Facility: [facility] Address: [address] [place] [address] Performed By: #### L [id number] ####LEUNG LABORATORYCLIA [id number] [address] pH (U) 6.0 [pH] Normal 5.0-8.0 [facility] Comment on above: Order Comment: Speci men Type: URINE SPECIMENOrdering Facility: [facility] Address: [address] [place] [address] Performed By: #### L [id number] ####LEUNG LABORATORYCLIA [id number] [address] Protein (U) [Mass/Vol] Negative Normal Negative [facility] Comment on above: Order Comment: Speci men Type: URINE SPECIMENOrdering Facility: [facility] Address: [address] [place] [address] Performed By: #### L [id number] ####[facility]PITALCLIA [id number] [address] STATES OF JONAS RBC LM.HPF (Urine sed) [#/Area] 0-3 /HPF Normal 0-3 /HPF [facility] Comment on above: Order Comment: Speci men Type: URINE SPECIMENOrdering Facility: [facility] Address: [address] [place] [address] Performed By: #### L [id number] ####ROCKLIN LABORATORYCLIA [id number] [address] Specific gravity (U) [Rel density] 1.025 Normal 1.005-1.030 [facility] Comment on above: Order Comment: Speci men Type: URINE SPECIMENOrdering Facility: [facility] Address: [address] [place] [address] Performed By: #### L [id number] ####LEUNG LABORATORYCLIA [id number] [address] Urobilinogen Ql (U) 0.2 EU/dL Normal 0.2-1.0 EU/dL [facility] Comment on above: Order Comment: Speci men Type: URINE SPECIMENOrdering Facility: [facility] Address: [address] [place] [address] Performed By: #### L [id number] ####ROCKLIN LABORATORYCLIA [id number] [address] OF [facility] WBC LM.HPF (Urine sed) [#/Area] 11-25 /HPF Abnormal 0-5 /HPF [facility] Comment on above: Order Comment: Speci men Type: URINE SPECIMENOrdering Facility: [facility] Address: [address] [id number] Performed By: #### L [id number] ####ROCKLIN LABORATORYCLIA [id number] [address] [place] XR CHEST 1V [...] limits Other: . IMPRESSION: No active disease Personal Development Educator: INES Transcribe Date/Time: Jun 05 2022 8:14P Dictated by : ALICE MARINA MD This examination was interpreted and the report reviewed and electronically signed by: ALICE MARINA MD on Jun 05 2022 8:14PM EST [id number] Normal [facility] Anti-Nuclear Antibodyon 02- CRESENCIO Titer < 1 : 80 Normal <1:80 [facility] Comment on above: Result Comment: Test ed by Indirect Immunofluorescence Assay (IFA). Performed By: #### A PTT, TSH5, HEMDF, LDH3, DDI2, BMP3M, ESR, FOLT3, URIC3, FEIBC, FERR3, B12, FT4M #### [place] [address] [facility] [place] [place] #### HVAAO, ANA3, HEPAN, B2GPG, B2GPM, B2GPA #### [address] #### LUPUS #### The performing lab is in the report. Lupus Anticoagulant Reflexiv e Panelon 11-12-2021 aPTT Coag (Bld) [Time] 118 s High 32-48 [facility] Comment on above: Performed By: #### A PTT, TSH5, HEMDF, LDH3, DDI2, BMP3M, ESR, FOLT3, URIC3, FEIBC, FERR3, B12, FT4M #### [place] [address] [facility] [place] #### HVAAO, ANA3, HEPAN, B2GPG, B2GPM, B2GPA #### [address] #### LUPUS #### The performing lab is in the report. aPTT Coag (Bld) [Time] 42 s Normal 32-48 [facility] Comment on above: Performed By: #### A PTT, TSH5, HEMDF, LDH3, DDI2, BMP3M, ESR, FOLT3, URIC3, FEIBC, FERR3, B12, FT4M #### [address] [facility] [place] [place] #### HVAAO, ANA3, HEPAN, B2GPG, B2GPM, B2GPA #### [address] #### LUPUS #### The performing lab is in the report. dRVVT 1:1 Mix Not Applicable Normal 33-44 [facility] Comment on above: Performed By: #### A PTT, TSH5, HEMDF, LDH3, DDI2, BMP3M, ESR, FOLT3, URIC3, FEIBC, FERR3, B12, FT4M #### [place] [address] [place] #### HVAAO, ANA3, HEPAN, B2GPG, B2GPM, B2GPA #### [address] #### LUPUS #### The performing lab is in the report. dRVVT Confirmation Not Applicable Normal Negative [facility] Comment on above: Performed By: #### A PTT, TSH5, HEMDF, LDH3, DDI2, BMP3M, ESR, FOLT3, URIC3, FEIBC, FERR3, B12, FT4M #### [facility] [address] [place] [address] #### HVAAO, ANA3, HEPAN, B2GPG, B2GPM, B2GPA #### [address] #### LUPUS #### The performing lab is in the report. dRVVT Screen 29 sec Low 33-44 [facility] Comment on above: Performed By: #### A PTT, TSH5, HEMDF, LDH3, DDI2, BMP3M, ESR, FOLT3, URIC3, FEIBC, FERR3, B12, FT4M #### [place] [address] [place] [address] #### HVAAO, ANA3, HEPAN, B2GPG, B2GPM, B2GPA #### [address] #### LUPUS #### The performing lab is in the report. Hexagonal Phospholipid Neutral Reflex Not Applicable Normal Negative [facility] Comment on above: Performed By: #### A PTT, TSH5, HEMDF, LDH3, DDI2, BMP3M, ESR, FOLT3, URIC3, FEIBC, FERR3, B12, FT4M #### [place] [address] [place] [address] #### HVAAO, ANA3, HEPAN, B2GPG, B2GPM, B2GPA #### [address] #### LUPUS #### The performing lab is in the report. Lupus Anticoagulant Interpretation See Note Normal [facility] Comment on above: Result Comment: Lupu s [...] developed and its performance characteristics determined by [facility]. It has not been cleared or approved by the [place] Food and Drug Administration. This test was performed in a CLIA certified laboratory and is intended for clinical purposes. Counseling and informed consent are recommended for genetic testing. Consent forms are available online. Performed by [facility], [address] [place] [id number] [email or web address], Sara Ji MD - Lab. Director Performed By: #### A PTT, TSH5, HEMDF, LDH3, DDI2, BMP3M, ESR, FOLT3, URIC3, FEIBC, FERR3, B12, FT4M #### [facility] [address] [place] [address] #### HVAAO, ANA3, HEPAN, B2GPG, B2GPM, B2GPA #### [email or web address] [facility] [employer] [address] [address] #### LUPUS #### The performing lab is in the report. Platelet Neutralization (PTT-D, Confirm) Not Applicable Normal Negative [facility] [employer] [facility] Comment on above: Performed By: #### A PTT, TSH5, HEMDF, LDH3, DDI2, BMP3M, ESR, FOLT3, URIC3, FEIBC, FERR3, B12, FT4M #### [facility] [address] [place] [address] #### HVAAO, ANA3, HEPAN, B2GPG, B2GPM, B2GPA #### [facility] [address] [place], [place] #### LUPUS #### The performing lab is in the report. PT Coag (PPP) [Time] 13.4 s Normal 12.0-15.5 [facility] Comment on above: Performed By: #### A PTT, TSH5, HEMDF, LDH3, DDI2, BMP3M, ESR, FOLT3, URIC3, FEIBC, FERR3, B12, FT4M #### [facility] [address] [place] [address] #### HVAAO, ANA3, HEPAN, B2GPG, B2GPM, B2GPA #### [address] #### LUPUS #### The performing lab is in the report. PTT-D 1:1 Mix Not Applicable Normal 32-48 [facility] Comment on above: Performed By: #### A PTT, TSH5, HEMDF, LDH3, DDI2, BMP3M, ESR, FOLT3, URIC3, FEIBC, FERR3, B12, FT4M #### [facility] [address] [place] [address] #### HVAAO, ANA3, HEPAN, B2GPG, B2GPM, B2GPA #### [address] #### LUPUS #### The performing lab is in the report. Reptilase Time 16.5 sec Normal <=21.9 [facility] Comment on above: Performed By: #### A PTT, TSH5, HEMDF, LDH3, DDI2, BMP3M, ESR, FOLT3, URIC3, FEIBC, FERR3, B12, FT4M #### [facility] [address] [place] [address] #### HVAAO, ANA3, HEPAN, B2GPG, B2GPM, B2GPA #### [address] #### LUPUS #### The performing lab is in the report. Thrombin Time > 150.0 High 14.7-19.5 [facility] Comment on above: Performed By: #### A PTT, TSH5, HEMDF, LDH3, DDI2, BMP3M, ESR, FOLT3, URIC3, FEIBC, FERR3, B12, FT4M #### [address] [place] [address] #### HVAAO, ANA3, HEPAN, B2GPG, B2GPM, B2GPA #### [address] #### LUPUS #### The performing lab is in the report. Basic Metabolic Panelon 10-23 Anion gap [Moles/Vol] 4 mmol/L Normal 3-13 [facility] Comment on above: Performed By: #### A PTT, TSH5, HEMDF, LDH3, DDI2, BMP3M, ESR, FOLT3, URIC3, FEIBC, FERR3, B12, FT4M #### [address] [place] [address] #### HVAAO, ANA3, HEPAN, B2GPG, B2GPM, B2GPA #### [address] #### LUPUS #### The performing lab is in the report. Calcium [Mass/Vol] 9.0 mg/dL Normal 8.4-10.4 [facility] Comment on above: Performed By: #### A PTT, TSH5, HEMDF, LDH3, DDI2, BMP3M, ESR, FOLT3, URIC3, FEIBC, FERR3, B12, FT4M #### [address] [place] [address] #### HVAAO, ANA3, HEPAN, B2GPG, B2GPM, B2GPA #### [address] #### LUPUS #### The performing lab is in the report. CO2 [Moles/Vol] 30 mmol/L Normal 22-30 [facility] Comment on above: Performed By: #### A PTT, TSH5, HEMDF, LDH3, DDI2, BMP3M, ESR, FOLT3, URIC3, FEIBC, FERR3, B12, FT4M #### [facility] [address] [place] [address] #### HVAAO, ANA3, HEPAN, B2GPG, B2GPM, B2GPA #### [address] #### LUPUS #### The performing lab is in the report. Creatinine [Mass/Vol] 0.95 mg/dL Normal 0.52-1.25 [facility] Comment on above: Performed By: #### A PTT, TSH5, HEMDF, LDH3, DDI2, BMP3M, ESR, FOLT3, URIC3, FEIBC, FERR3, B12, FT4M #### [place] [address] [place] [address] #### HVAAO, ANA3, HEPAN, B2GPG, B2GPM, B2GPA #### [address] #### LUPUS #### The performing lab is in the report. GFR/1.73 sq M.predicted among blacks MDRD (S/P/Bld) [Vol rate/Area] 66.2 mL/min/{1.73_m2} Normal >60 [facility] Comment on above: Performed By: #### A PTT, TSH5, HEMDF, LDH3, DDI2, BMP3M, ESR, FOLT3, URIC3, FEIBC, FERR3, B12, FT4M #### [place] [address] [place] [address] #### HVAAO, ANA3, HEPAN, B2GPG, B2GPM, B2GPA #### [address] #### LUPUS #### The performing lab is in the report. GFR/1.73 sq M.predicted among non-blacks MDRD (S/P/Bld) [Vol rate/Area] 57.1 mL/min/{1.73_m2} Abnormal >60 [facility] Comment on above: Result Comment: KDIG O [...] URIC3, FEIBC, FERR3, B12, FT4M #### [facility] [address] [place] [address] #### HVAAO, ANA3, HEPAN, B2GPG, B2GPM, B2GPA #### [address] [address] #### LUPUS #### The performing lab is in the report. Glucose [Mass/Vol] 101 mg/dL High 70-100 [facility] Comment on above: Performed By: #### A PTT, TSH5, HEMDF, LDH3, DDI2, BMP3M, ESR, FOLT3, URIC3, FEIBC, FERR3, B12, FT4M #### [facility] [address] [place] [address] #### HVAAO, ANA3, HEPAN, B2GPG, B2GPM, B2GPA #### [address] [address] #### LUPUS #### The performing lab is in the report. Urea nitrogen [Mass/Vol] 16 mg/dL Normal 9-20 [facility] Comment on above: Performed By: #### A PTT, TSH5, HEMDF, LDH3, DDI2, BMP3M, ESR, FOLT3, URIC3, FEIBC, FERR3, B12, FT4M #### [facility] [address] [place] [address] #### HVAAO, ANA3, HEPAN, B2GPG, B2GPM, B2GPA #### [address] #### LUPUS #### The performing lab is in the report. Chloride [Moles/Vol] 109 mmol/L High 98-107 [facility] Comment on above: Performed By: #### A PTT, TSH5, HEMDF, LDH3, DDI2, BMP3M, ESR, FOLT3, URIC3, FEIBC, FERR3, B12, FT4M #### [place] [address] [place] #### HVAAO, ANA3, HEPAN, B2GPG, B2GPM, B2GPA #### [address] #### LUPUS #### The performing lab is in the report. Potassium [Moles/Vol] 4.2 mmol/L Normal 3.5-5.1 [facility] Comment on above: Performed By: #### A PTT, TSH5, HEMDF, LDH3, DDI2, BMP3M, ESR, FOLT3, URIC3, FEIBC, FERR3, B12, FT4M #### [facility] [address] [place] #### HVAAO, ANA3, HEPAN, B2GPG, B2GPM, B2GPA #### [address] #### LUPUS #### The performing lab is in the report. Sodium [Moles/Vol] 142 mmol/L Normal 135-145 [facility] Comment on above: Performed By: #### A PTT, TSH5, HEMDF, LDH3, DDI2, BMP3M, ESR, FOLT3, URIC3, FEIBC, FERR3, B12, FT4M #### [place] [address] [place] #### HVAAO, ANA3, HEPAN, B2GPG, B2GPM, B2GPA #### [address] #### LUPUS #### The performing lab is in the report. Hemogram w/ Autodiffon 11-10 Abs Baso Cnt 0.1 10*3/uL Normal 0.0-0.2 [facility] Comment on above: Performed By: #### A PTT, TSH5, HEMDF, LDH3, DDI2, BMP3M, ESR, FOLT3, URIC3, FEIBC, FERR3, B12, FT4M #### [address] [place] [address] #### HVAAO, ANA3, HEPAN, B2GPG, B2GPM, B2GPA #### [address] #### LUPUS #### The performing lab is in the report. Abs Neutrophile Cnt 5.2 10*3/uL Normal 1.8-7.0 [facility] Comment on above: Performed By: #### A PTT, TSH5, HEMDF, LDH3, DDI2, BMP3M, ESR, FOLT3, URIC3, FEIBC, FERR3, B12, FT4M #### [address] [place] [address] #### HVAAO, ANA3, HEPAN, B2GPG, B2GPM, B2GPA #### [address] #### LUPUS #### The performing lab is in the report. Basophils/100 WBC (Bld) 0.7 % Normal 0.0-2.0 [facility] Comment on above: Performed By: #### A PTT, TSH5, HEMDF, LDH3, DDI2, BMP3M, ESR, FOLT3, URIC3, FEIBC, FERR3, B12, FT4M #### [address] [place], [place] #### HVAAO, ANA3, HEPAN, B2GPG, B2GPM, B2GPA #### [address] #### LUPUS #### The performing lab is in the report. Eosinophils (Bld) [#/Vol] 0.5 10*3/uL Normal 0.0-0.5 [facility] Comment on above: Performed By: #### A PTT, TSH5, HEMDF, LDH3, DDI2, BMP3M, ESR, FOLT3, URIC3, FEIBC, FERR3, B12, FT4M #### [facility] [address] [place] [address] #### HVAAO, ANA3, HEPAN, B2GPG, B2GPM, B2GPA #### [address] #### LUPUS #### The performing lab is in the report. Eosinophils/100 WBC (Bld) 5.8 % Normal 1.0-6.0 [facility] Comment on above: Performed By: #### A PTT, TSH5, HEMDF, LDH3, DDI2, BMP3M, ESR, FOLT3, URIC3, FEIBC, FERR3, B12, FT4M #### [facility] [address] [place], [place] #### HVAAO, ANA3, HEPAN, B2GPG, B2GPM, B2GPA #### [address] #### LUPUS #### The performing lab is in the report. Erythrocyte distribution width (RBC) [Ratio] 15.2 % High 11.5-14.5 [facility] Comment on above: Performed By: #### A PTT, TSH5, HEMDF, LDH3, DDI2, BMP3M, ESR, FOLT3, URIC3, FEIBC, FERR3, B12, FT4M #### [place] [address] [place], [place] #### HVAAO, ANA3, HEPAN, B2GPG, B2GPM, B2GPA #### [address] #### LUPUS #### The performing lab is in the report. Granulocytes/100 WBC (Bld) 64.6 % Normal 40.0-80.0 [facility] Comment on above: Performed By: #### A PTT, TSH5, HEMDF, LDH3, DDI2, BMP3M, ESR, FOLT3, URIC3, FEIBC, FERR3, B12, FT4M #### [facility] [address] [place] #### HVAAO, ANA3, HEPAN, B2GPG, B2GPM, B2GPA #### [place] [address] [place], [place] #### LUPUS #### The performing lab is in the report. Hematocrit (Bld) [Volume fraction] 37.8 % Normal 35.0-47.0 [facility] Comment on above: Performed By: #### A PTT, TSH5, HEMDF, LDH3, DDI2, BMP3M, ESR, FOLT3, URIC3, FEIBC, FERR3, B12, FT4M #### [facility] [address] [place], [place] #### HVAAO, ANA3, HEPAN, B2GPG, B2GPM, B2GPA #### [place] [address] [address] [place], [place] #### LUPUS #### The performing lab is in the report. Hemoglobin (Bld) [Mass/Vol] 12.4 g/dL Normal 11.7-16.0 [facility] Comment on above: Performed By: #### A PTT, TSH5, HEMDF, LDH3, DDI2, BMP3M, ESR, FOLT3, URIC3, FEIBC, FERR3, B12, FT4M #### [facility] [address] [place], [place] #### HVAAO, ANA3, HEPAN, B2GPG, B2GPM, B2GPA #### [address] #### LUPUS #### The performing lab is in the report. Lymphocytes (Bld) [#/Vol] 1.7 10*3/uL Normal 1.0-4.3 [facility] Comment on above: Performed By: #### A PTT, TSH5, HEMDF, LDH3, DDI2, BMP3M, ESR, FOLT3, URIC3, FEIBC, FERR3, B12, FT4M #### [facility] [address] [place] [address] #### HVAAO, ANA3, HEPAN, B2GPG, B2GPM, B2GPA #### [address] #### LUPUS #### The performing lab is in the report. Lymphocytes/100 WBC (Bld) 21.0 % Normal 20.0-40.0 [facility] Comment on above: Performed By: #### A PTT, TSH5, HEMDF, LDH3, DDI2, BMP3M, ESR, FOLT3, URIC3, FEIBC, FERR3, B12, FT4M #### [facility] [address] [place] [address] #### HVAAO, ANA3, HEPAN, B2GPG, B2GPM, B2GPA #### [address] #### LUPUS #### The performing lab is in the report. MCH (RBC) [Entitic mass] 30.5 pg Normal 26.0-34.0 [facility] Comment on above: Performed By: #### A PTT, TSH5, HEMDF, LDH3, DDI2, BMP3M, ESR, FOLT3, URIC3, FEIBC, FERR3, B12, FT4M #### [facility] [address] [place] [address] #### HVAAO, ANA3, HEPAN, B2GPG, B2GPM, B2GPA #### [address] #### LUPUS #### The performing lab is in the report. MCHC 32.8 % Normal 32.0-36.0 [facility] Comment on above: Performed By: #### A PTT, TSH5, HEMDF, LDH3, DDI2, BMP3M, ESR, FOLT3, URIC3, FEIBC, FERR3, B12, FT4M #### [place] [address] [place] [address] #### HVAAO, ANA3, HEPAN, B2GPG, B2GPM, B2GPA #### [address] #### LUPUS #### The performing lab is in the report. MCV (RBC) [Entitic vol] 92.9 fL Normal 79.0-98.0 [facility] Comment on above: Performed By: #### A PTT, TSH5, HEMDF, LDH3, DDI2, BMP3M, ESR, FOLT3, URIC3, FEIBC, FERR3, B12, FT4M #### [address] [facility] [place] #### HVAAO, ANA3, HEPAN, B2GPG, B2GPM, B2GPA #### [address] #### LUPUS #### The performing lab is in the report. Monocytes (Bld) [#/Vol] 0.6 10*3/uL Normal 0.0-0.8 [facility] Comment on above: Performed By: #### A PTT, TSH5, HEMDF, LDH3, DDI2, BMP3M, ESR, FOLT3, URIC3, FEIBC, FERR3, B12, FT4M #### [address] [place] #### HVAAO, ANA3, HEPAN, B2GPG, B2GPM, B2GPA #### [address] #### LUPUS #### The performing lab is in the report. Monocytes/100 WBC (Bld) 7.9 % Normal 2.0-10.0 [facility] Comment on above: Performed By: #### A PTT, TSH5, HEMDF, LDH3, DDI2, BMP3M, ESR, FOLT3, URIC3, FEIBC, FERR3, B12, FT4M #### [place] [address] [place] [address] #### HVAAO, ANA3, HEPAN, B2GPG, B2GPM, B2GPA #### [address] #### LUPUS #### The performing lab is in the report. Platelet mean volume (Bld) [Entitic vol] 8.8 fL Normal 7.4-10.4 [facility] Comment on above: Performed By: #### A PTT, TSH5, HEMDF, LDH3, DDI2, BMP3M, ESR, FOLT3, URIC3, FEIBC, FERR3, B12, FT4M #### [address] [place] #### HVAAO, ANA3, HEPAN, B2GPG, B2GPM, B2GPA #### [address] #### LUPUS #### The performing lab is in the report. Platelets (Bld) [#/Vol] 280 10*3/uL Normal 140-440 [facility] Comment on above: Performed By: #### A PTT, TSH5, HEMDF, LDH3, DDI2, BMP3M, ESR, FOLT3, URIC3, FEIBC, FERR3, B12, FT4M #### [address] [place] #### HVAAO, ANA3, HEPAN, B2GPG, B2GPM, B2GPA #### [address] #### LUPUS #### The performing lab is in the report. RBC (Bld) [#/Vol] 4.07 10*6/uL Normal 3.80-5.20 [facility] Comment on above: Performed By: #### A PTT, TSH5, HEMDF, LDH3, DDI2, BMP3M, ESR, FOLT3, URIC3, FEIBC, FERR3, B12, FT4M #### [facility] [address] [place] [address] #### HVAAO, ANA3, HEPAN, B2GPG, B2GPM, B2GPA #### [facility] [address] [place], [place] #### LUPUS #### The performing lab is in the report. WBC (Bld) [#/Vol] 8.0 10*3/uL Normal 3.6-10.7 [facility] Comment on above: Performed By: #### A PTT, TSH5, HEMDF, LDH3, DDI2, BMP3M, ESR, FOLT3, URIC3, FEIBC, FERR3, B12, FT4M #### [facility] [address] [place] [address] #### HVAAO, ANA3, HEPAN, B2GPG, B2GPM, B2GPA #### [place] [address] [address] [place], [place] #### LUPUS #### The performing lab is in the report. SARS-CoV-2 Antigenon 022 SARS-CoV-2 Antigen Negative Normal Negative [facility] Comment on above: Result Comment: A negative result does not rule out the possibility of SARS-CoV-2 infection. NAAT-based methods should be considered for symptomatic patients presenting greater than seven days after onset of symptoms. Method: Lateral flow immunoassay. Fact sheets for healthcare providers and patients can be found at the following sites: https://www.fda.gov/media/118931/download https://www.fda.gov/media/910186/download Performed By: #### A PTT, TSH5, HEMDF, LDH3, DDI2, BMP3M, ESR, FOLT3, URIC3, FEIBC, FERR3, B12, FT4M #### [facility] [address] [place] #### HVAAO, ANA3, HEPAN, B2GPG, B2GPM, B2GPA #### [place] [address] [place], [place] #### LUPUS #### The performing lab is in the report. Basic Metabolic Panelon 02- Anion gap [Moles/Vol] 5 mmol/L Normal 3-13 [facility] Comment on above: Performed By: #### A PTT, TSH5, HEMDF, LDH3, DDI2, BMP3M, ESR, FOLT3, URIC3, FEIBC, FERR3, B12, FT4M #### [facility] [address] [place] [address] #### HVAAO, ANA3, HEPAN, B2GPG, B2GPM, B2GPA #### [address] #### LUPUS #### The performing lab is in the report. Calcium [Mass/Vol] 9.2 mg/dL Normal 8.4-10.4 [facility] Comment on above: Performed By: #### A PTT, TSH5, HEMDF, LDH3, DDI2, BMP3M, ESR, FOLT3, URIC3, FEIBC, FERR3, B12, FT4M #### [facility] [address] [place] [address] #### HVAAO, ANA3, HEPAN, B2GPG, B2GPM, B2GPA #### [address] #### LUPUS #### The performing lab is in the report. CO2 [Moles/Vol] 28 mmol/L Normal 22-30 [facility] Comment on above: Performed By: #### A PTT, TSH5, HEMDF, LDH3, DDI2, BMP3M, ESR, FOLT3, URIC3, FEIBC, FERR3, B12, FT4M #### [facility] [address] [place] [address] #### HVAAO, ANA3, HEPAN, B2GPG, B2GPM, B2GPA #### [address] #### LUPUS #### The performing lab is in the report. Glucose [Mass/Vol] 106 mg/dL High 70-100 [facility] Comment on above: Performed By: #### A PTT, TSH5, HEMDF, LDH3, DDI2, BMP3M, ESR, FOLT3, URIC3, FEIBC, FERR3, B12, FT4M #### [address] [place] [address] #### HVAAO, ANA3, HEPAN, B2GPG, B2GPM, B2GPA #### [address] #### LUPUS #### The performing lab is in the report. Urea nitrogen [Mass/Vol] 14 mg/dL Normal 9-20 [facility] Comment on above: Performed By: #### A PTT, TSH5, HEMDF, LDH3, DDI2, BMP3M, ESR, FOLT3, URIC3, FEIBC, FERR3, B12, FT4M #### [address] [place], [place] #### HVAAO, ANA3, HEPAN, B2GPG, B2GPM, B2GPA #### [address] #### LUPUS #### The performing lab is in the report. Creatinine [Mass/Vol] 0.88 mg/dL Normal 0.52-1.25 [facility] Comment on above: Performed By: #### A PTT, TSH5, HEMDF, LDH3, DDI2, BMP3M, ESR, FOLT3, URIC3, FEIBC, FERR3, B12, FT4M #### [address] [place] [address] #### HVAAO, ANA3, HEPAN, B2GPG, B2GPM, B2GPA #### [address] #### LUPUS #### The performing lab is in the report. GFR/1.73 sq M.predicted among blacks MDRD (S/P/Bld) [Vol rate/Area] 72.6 mL/min/{1.73_m2} Normal >60 [facility] Comment on above: Performed By: #### A PTT, TSH5, HEMDF, LDH3, DDI2, BMP3M, ESR, FOLT3, URIC3, FEIBC, FERR3, B12, FT4M #### [facility] [employer] [facility] [address] [place] [address] #### HVAAO, ANA3, HEPAN, B2GPG, B2GPM, B2GPA #### [facility] [address] [place], [place] #### LUPUS #### The performing lab is in the report. GFR/1.73 sq M.predicted among non-blacks MDRD (S/P/Bld) [Vol rate/Area] 62.7 mL/min/{1.73_m2} Normal >60 [facility] Comment on above: Result Comment: KDIG O [...] URIC3, FEIBC, FERR3, B12, FT4M #### [facility] [address] [place] [address] #### HVAAO, ANA3, HEPAN, B2GPG, B2GPM, B2GPA #### [facility] [address] [place] [address] #### LUPUS #### The performing lab is in the report. Chloride [Moles/Vol] 108 mmol/L High 98-107 [facility] Comment on above: Performed By: #### A PTT, TSH5, HEMDF, LDH3, DDI2, BMP3M, ESR, FOLT3, URIC3, FEIBC, FERR3, B12, FT4M #### [place] [address] [place] [address] #### HVAAO, ANA3, HEPAN, B2GPG, B2GPM, B2GPA #### [address] #### LUPUS #### The performing lab is in the report. Potassium [Moles/Vol] 4.1 mmol/L Normal 3.5-5.1 [facility] Comment on above: Performed By: #### A PTT, TSH5, HEMDF, LDH3, DDI2, BMP3M, ESR, FOLT3, URIC3, FEIBC, FERR3, B12, FT4M #### [address] [place], [place] #### HVAAO, ANA3, HEPAN, B2GPG, B2GPM, B2GPA #### [address] #### LUPUS #### The performing lab is in the report. Sodium [Moles/Vol] 141 mmol/L Normal 135-145 [facility] Comment on above: Performed By: #### A PTT, TSH5, HEMDF, LDH3, DDI2, BMP3M, ESR, FOLT3, URIC3, FEIBC, FERR3, B12, FT4M #### [address] [place] [address] #### HVAAO, ANA3, HEPAN, B2GPG, B2GPM, B2GPA #### [address] #### LUPUS #### The performing lab is in the report. CR Chest Portableon 11-09-19 CR Chest Portable Patient Name: CHAY TEAGUE Diagnostic Radiology ACCESSION EXAM DATE/TIME PROCEDURE ORDERING PROVIDER [id number] 11/09/2021 13:45 EST CR Chest Portable MD FLOR, RENEA CPT code 22281 Reason For Exam (CR Chest Portable) Shortness [...] Transcribed Date and Time: 11/09/2021 2:26 Normal [facility] Hemogram w/ Autodiffon 11-09 Abs Baso Cnt 0.1 10*3/uL Normal 0.0-0.2 [facility] Comment on above: Performed By: #### A PTT, TSH5, HEMDF, LDH3, DDI2, BMP3M, ESR, FOLT3, URIC3, FEIBC, FERR3, B12, FT4M #### [facility] [address] [place] [address] #### HVAAO, ANA3, HEPAN, B2GPG, B2GPM, B2GPA #### [address] [id number] #### LUPUS #### The performing lab is in the report. Abs Neutrophile Cnt 7.7 10*3/uL High 1.8-7.0 [facility] Comment on above: Performed By: #### A PTT, TSH5, HEMDF, LDH3, DDI2, BMP3M, ESR, FOLT3, URIC3, FEIBC, FERR3, B12, FT4M #### [facility] [address] [place] [address] #### HVAAO, ANA3, HEPAN, B2GPG, B2GPM, B2GPA #### [address] #### LUPUS #### The performing lab is in the report. Basophils/100 WBC (Bld) 0.9 % Normal 0.0-2.0 [facility] Comment on above: Performed By: #### A PTT, TSH5, HEMDF, LDH3, DDI2, BMP3M, ESR, FOLT3, URIC3, FEIBC, FERR3, B12, FT4M #### [facility] [address] [place] [address] #### HVAAO, ANA3, HEPAN, B2GPG, B2GPM, B2GPA #### [address] #### LUPUS #### The performing lab is in the report. Eosinophils (Bld) [#/Vol] 0.5 10*3/uL Normal 0.0-0.5 [facility] Comment on above: Performed By: #### A PTT, TSH5, HEMDF, LDH3, DDI2, BMP3M, ESR, FOLT3, URIC3, FEIBC, FERR3, B12, FT4M #### [facility] [address] [place], [place] #### HVAAO, ANA3, HEPAN, B2GPG, B2GPM, B2GPA #### [address] #### LUPUS #### The performing lab is in the report. Eosinophils/100 WBC (Bld) 4.4 % Normal 1.0-6.0 [facility] Comment on above: Performed By: #### A PTT, TSH5, HEMDF, LDH3, DDI2, BMP3M, ESR, FOLT3, URIC3, FEIBC, FERR3, B12, FT4M #### [address] [place], [place] #### HVAAO, ANA3, HEPAN, B2GPG, B2GPM, B2GPA #### [address] #### LUPUS #### The performing lab is in the report. Erythrocyte distribution width (RBC) [Ratio] 15.4 % High 11.5-14.5 [facility] Comment on above: Performed By: #### A PTT, TSH5, HEMDF, LDH3, DDI2, BMP3M, ESR, FOLT3, URIC3, FEIBC, FERR3, B12, FT4M #### [facility] [address] [place] [address] #### HVAAO, ANA3, HEPAN, B2GPG, B2GPM, B2GPA #### [address] #### LUPUS #### The performing lab is in the report. Granulocytes/100 WBC (Bld) 67.5 % Normal 40.0-80.0 [facility] Comment on above: Performed By: #### A PTT, TSH5, HEMDF, LDH3, DDI2, BMP3M, ESR, FOLT3, URIC3, FEIBC, FERR3, B12, FT4M #### [address] [place], [place] #### HVAAO, ANA3, HEPAN, B2GPG, B2GPM, B2GPA #### [address] #### LUPUS #### The performing lab is in the report. Hematocrit (Bld) [Volume fraction] 39.5 % Normal 35.0-47.0 [facility] Comment on above: Performed By: #### A PTT, TSH5, HEMDF, LDH3, DDI2, BMP3M, ESR, FOLT3, URIC3, FEIBC, FERR3, B12, FT4M #### [address] [place] [address] #### HVAAO, ANA3, HEPAN, B2GPG, B2GPM, B2GPA #### [address] #### LUPUS #### The performing lab is in the report. Hemoglobin (Bld) [Mass/Vol] 12.9 g/dL Normal 11.7-16.0 [facility] Comment on above: Performed By: #### A PTT, TSH5, HEMDF, LDH3, DDI2, BMP3M, ESR, FOLT3, URIC3, FEIBC, FERR3, B12, FT4M #### [place] [address] [place] [address] #### HVAAO, ANA3, HEPAN, B2GPG, B2GPM, B2GPA #### [address] #### LUPUS #### The performing lab is in the report. Lymphocytes (Bld) [#/Vol] 2.2 10*3/uL Normal 1.0-4.3 [facility] Comment on above: Performed By: #### A PTT, TSH5, HEMDF, LDH3, DDI2, BMP3M, ESR, FOLT3, URIC3, FEIBC, FERR3, B12, FT4M #### [address] [place] [address] #### HVAAO, ANA3, HEPAN, B2GPG, B2GPM, B2GPA #### [address] #### LUPUS #### The performing lab is in the report. Lymphocytes/100 WBC (Bld) 19.1 % Low 20.0-40.0 [facility] Comment on above: Performed By: #### A PTT, TSH5, HEMDF, LDH3, DDI2, BMP3M, ESR, FOLT3, URIC3, FEIBC, FERR3, B12, FT4M #### [address] [place] [address] #### HVAAO, ANA3, HEPAN, B2GPG, B2GPM, B2GPA #### [address] #### LUPUS #### The performing lab is in the report. MCH (RBC) [Entitic mass] 30.1 pg Normal 26.0-34.0 [facility] Comment on above: Performed By: #### A PTT, TSH5, HEMDF, LDH3, DDI2, BMP3M, ESR, FOLT3, URIC3, FEIBC, FERR3, B12, FT4M #### [facility] [address] [place] [address] #### HVAAO, ANA3, HEPAN, B2GPG, B2GPM, B2GPA #### [address] #### LUPUS #### The performing lab is in the report. MCHC 32.6 % Normal 32.0-36.0 [facility] Comment on above: Performed By: #### A PTT, TSH5, HEMDF, LDH3, DDI2, BMP3M, ESR, FOLT3, URIC3, FEIBC, FERR3, B12, FT4M #### [address] [place] #### HVAAO, ANA3, HEPAN, B2GPG, B2GPM, B2GPA #### [address] #### LUPUS #### The performing lab is in the report. MCV (RBC) [Entitic vol] 92.4 fL Normal 79.0-98.0 [facility] Comment on above: Performed By: #### A PTT, TSH5, HEMDF, LDH3, DDI2, BMP3M, ESR, FOLT3, URIC3, FEIBC, FERR3, B12, FT4M #### [place] [address] [place] [address] #### HVAAO, ANA3, HEPAN, B2GPG, B2GPM, B2GPA #### [address] #### LUPUS #### The performing lab is in the report. Monocytes (Bld) [#/Vol] 0.9 10*3/uL High 0.0-0.8 [facility] Comment on above: Performed By: #### A PTT, TSH5, HEMDF, LDH3, DDI2, BMP3M, ESR, FOLT3, URIC3, FEIBC, FERR3, B12, FT4M #### [facility] [address] [place] [address] #### HVAAO, ANA3, HEPAN, B2GPG, B2GPM, B2GPA #### [address] #### LUPUS #### The performing lab is in the report. Monocytes/100 WBC (Bld) 8.1 % Normal 2.0-10.0 [facility] Comment on above: Performed By: #### A PTT, TSH5, HEMDF, LDH3, DDI2, BMP3M, ESR, FOLT3, URIC3, FEIBC, FERR3, B12, FT4M #### [address] [address] #### HVAAO, ANA3, HEPAN, B2GPG, B2GPM, B2GPA #### [address] #### LUPUS #### The performing lab is in the report. Platelet mean volume (Bld) [Entitic vol] 8.8 fL Normal 7.4-10.4 [facility] Comment on above: Performed By: #### A PTT, TSH5, HEMDF, LDH3, DDI2, BMP3M, ESR, FOLT3, URIC3, FEIBC, FERR3, B12, FT4M #### [address] [place] [address] #### HVAAO, ANA3, HEPAN, B2GPG, B2GPM, B2GPA #### [address] #### LUPUS #### The performing lab is in the report. Platelets (Bld) [#/Vol] 260 10*3/uL Normal 140-440 [facility] Comment on above: Performed By: #### A PTT, TSH5, HEMDF, LDH3, DDI2, BMP3M, ESR, FOLT3, URIC3, FEIBC, FERR3, B12, FT4M #### [address] [place] [address] #### HVAAO, ANA3, HEPAN, B2GPG, B2GPM, B2GPA #### [address] #### LUPUS #### The performing lab is in the report. RBC (Bld) [#/Vol] 4.27 10*6/uL Normal 3.80-5.20 [facility] Comment on above: Performed By: #### A PTT, TSH5, HEMDF, LDH3, DDI2, BMP3M, ESR, FOLT3, URIC3, FEIBC, FERR3, B12, FT4M #### [address] [place] [address] #### HVAAO, ANA3, HEPAN, B2GPG, B2GPM, B2GPA #### [address] #### LUPUS #### The performing lab is in the report. WBC (Bld) [#/Vol] 11.4 10*3/uL High 3.6-10.7 [facility] Comment on above: Performed By: #### A PTT, TSH5, HEMDF, LDH3, DDI2, BMP3M, ESR, FOLT3, URIC3, FEIBC, FERR3, B12, FT4M #### [address] [facility] [place] [address] #### HVAAO, ANA3, HEPAN, B2GPG, B2GPM, B2GPA #### [address] #### LUPUS #### The performing lab is in the report. Basic Metabolic Panelon 10-23 Calcium [Mass/Vol] 9.1 mg/dL Normal 8.4-10.4 [facility] Comment on above: Performed By: #### A PTT, TSH5, HEMDF, LDH3, DDI2, BMP3M, ESR, FOLT3, URIC3, FEIBC, FERR3, B12, FT4M #### [address] [place] [address] #### HVAAO, ANA3, HEPAN, B2GPG, B2GPM, B2GPA #### [address] #### LUPUS #### The performing lab is in the report. Anion gap [Moles/Vol] 6 mmol/L Normal 3-13 [facility] Comment on above: Performed By: #### A PTT, TSH5, HEMDF, LDH3, DDI2, BMP3M, ESR, FOLT3, URIC3, FEIBC, FERR3, B12, FT4M #### [facility] [address] [place] #### HVAAO, ANA3, HEPAN, B2GPG, B2GPM, B2GPA #### [address] #### LUPUS #### The performing lab is in the report. CO2 [Moles/Vol] 28 mmol/L Normal 22-30 [facility] Comment on above: Performed By: #### A PTT, TSH5, HEMDF, LDH3, DDI2, BMP3M, ESR, FOLT3, URIC3, FEIBC, FERR3, B12, FT4M #### [facility] [address] [place] [address] #### HVAAO, ANA3, HEPAN, B2GPG, B2GPM, B2GPA #### [address] #### LUPUS #### The performing lab is in the report. Creatinine [Mass/Vol] 0.90 mg/dL Normal 0.52-1.25 [facility] Comment on above: Performed By: #### A PTT, TSH5, HEMDF, LDH3, DDI2, BMP3M, ESR, FOLT3, URIC3, FEIBC, FERR3, B12, FT4M #### [facility] [address] [place] #### HVAAO, ANA3, HEPAN, B2GPG, B2GPM, B2GPA #### [address] [place] [address] #### LUPUS #### The performing lab is in the report. GFR/1.73 sq M.predicted among blacks MDRD (S/P/Bld) [Vol rate/Area] 70.7 mL/min/{1.73_m2} Normal >60 [facility] Comment on above: Performed By: #### A PTT, TSH5, HEMDF, LDH3, DDI2, BMP3M, ESR, FOLT3, URIC3, FEIBC, FERR3, B12, FT4M #### [facility] [address] [place] [address] #### HVAAO, ANA3, HEPAN, B2GPG, B2GPM, B2GPA #### [address] [phone] #### LUPUS #### The performing lab is in the report. GFR/1.73 sq M.predicted among non-blacks MDRD (S/P/Bld) [Vol rate/Area] 61.0 mL/min/{1.73_m2} Normal >60 [facility] Comment on above: Result Comment: KDIG O [...] URIC3, FEIBC, FERR3, B12, FT4M #### [facility] [address] [place] #### HVAAO, ANA3, HEPAN, B2GPG, B2GPM, B2GPA #### [address] #### LUPUS #### The performing lab is in the report. Glucose [Mass/Vol] 136 mg/dL High 70-100 [facility] Comment on above: Performed By: #### A PTT, TSH5, HEMDF, LDH3, DDI2, BMP3M, ESR, FOLT3, URIC3, FEIBC, FERR3, B12, FT4M #### [facility] [address] [place] #### HVAAO, ANA3, HEPAN, B2GPG, B2GPM, B2GPA #### [address] #### LUPUS #### The performing lab is in the report. Urea nitrogen [Mass/Vol] 14 mg/dL Normal 9-20 [facility] Comment on above: Performed By: #### A PTT, TSH5, HEMDF, LDH3, DDI2, BMP3M, ESR, FOLT3, URIC3, FEIBC, FERR3, B12, FT4M #### [facility] [address] [place] #### HVAAO, ANA3, HEPAN, B2GPG, B2GPM, B2GPA #### [address] #### LUPUS #### The performing lab is in the report. Chloride [Moles/Vol] 107 mmol/L Normal 98-107 [facility] Comment on above: Performed By: #### A PTT, TSH5, HEMDF, LDH3, DDI2, BMP3M, ESR, FOLT3, URIC3, FEIBC, FERR3, B12, FT4M #### [facility] [address] [place] #### HVAAO, ANA3, HEPAN, B2GPG, B2GPM, B2GPA #### [address] #### LUPUS #### The performing lab is in the report. Potassium [Moles/Vol] 3.7 mmol/L Normal 3.5-5.1 [facility] Comment on above: Performed By: #### A PTT, TSH5, HEMDF, LDH3, DDI2, BMP3M, ESR, FOLT3, URIC3, FEIBC, FERR3, B12, FT4M #### [place] [address] [place] [address] #### HVAAO, ANA3, HEPAN, B2GPG, B2GPM, B2GPA #### [address] #### LUPUS #### The performing lab is in the report. Sodium [Moles/Vol] 142 mmol/L Normal 135-145 [facility] Comment on above: Performed By: #### A PTT, TSH5, HEMDF, LDH3, DDI2, BMP3M, ESR, FOLT3, URIC3, FEIBC, FERR3, B12, FT4M #### [place] [address] [place] #### HVAAO, ANA3, HEPAN, B2GPG, B2GPM, B2GPA #### [address] #### LUPUS #### The performing lab is in the report. Hemogram w/ Autodiffon 11-08 Abs Baso Cnt 0.1 10*3/uL Normal 0.0-0.2 [facility] Comment on above: Performed By: #### A PTT, TSH5, HEMDF, LDH3, DDI2, BMP3M, ESR, FOLT3, URIC3, FEIBC, FERR3, B12, FT4M #### [place] [address] [place] [address] #### HVAAO, ANA3, HEPAN, B2GPG, B2GPM, B2GPA #### [address] #### LUPUS #### The performing lab is in the report. Abs Neutrophile Cnt 8.0 10*3/uL High 1.8-7.0 [facility] Comment on above: Performed By: #### A PTT, TSH5, HEMDF, LDH3, DDI2, BMP3M, ESR, FOLT3, URIC3, FEIBC, FERR3, B12, FT4M #### [facility] [address] [place] [address] #### HVAAO, ANA3, HEPAN, B2GPG, B2GPM, B2GPA #### [address] [phone] #### LUPUS #### The performing lab is in the report. Basophils/100 WBC (Bld) 0.5 % Normal 0.0-2.0 [facility] Comment on above: Performed By: #### A PTT, TSH5, HEMDF, LDH3, DDI2, BMP3M, ESR, FOLT3, URIC3, FEIBC, FERR3, B12, FT4M #### [place] [address] [place] [address] #### HVAAO, ANA3, HEPAN, B2GPG, B2GPM, B2GPA #### [address] #### LUPUS #### The performing lab is in the report. Eosinophils (Bld) [#/Vol] 0.3 10*3/uL Normal 0.0-0.5 [facility] Comment on above: Performed By: #### A PTT, TSH5, HEMDF, LDH3, DDI2, BMP3M, ESR, FOLT3, URIC3, FEIBC, FERR3, B12, FT4M #### [address] [place] [address] #### HVAAO, ANA3, HEPAN, B2GPG, B2GPM, B2GPA #### [address] [phone] #### LUPUS #### The performing lab is in the report. Eosinophils/100 WBC (Bld) 2.9 % Normal 1.0-6.0 [facility] Comment on above: Performed By: #### A PTT, TSH5, HEMDF, LDH3, DDI2, BMP3M, ESR, FOLT3, URIC3, FEIBC, FERR3, B12, FT4M #### [facility] [address] [place] [address] #### HVAAO, ANA3, HEPAN, B2GPG, B2GPM, B2GPA #### [address] #### LUPUS #### The performing lab is in the report. Erythrocyte distribution width (RBC) [Ratio] 15.2 % High 11.5-14.5 [facility] Comment on above: Performed By: #### A PTT, TSH5, HEMDF, LDH3, DDI2, BMP3M, ESR, FOLT3, URIC3, FEIBC, FERR3, B12, FT4M #### [facility] [address] [place] [address] #### HVAAO, ANA3, HEPAN, B2GPG, B2GPM, B2GPA #### [address] #### LUPUS #### The performing lab is in the report. Granulocytes/100 WBC (Bld) 72.6 % Normal 40.0-80.0 [facility] Comment on above: Performed By: #### A PTT, TSH5, HEMDF, LDH3, DDI2, BMP3M, ESR, FOLT3, URIC3, FEIBC, FERR3, B12, FT4M #### [place] [address] [place] [address] #### HVAAO, ANA3, HEPAN, B2GPG, B2GPM, B2GPA #### [address] #### LUPUS #### The performing lab is in the report. Hematocrit (Bld) [Volume fraction] 39.8 % Normal 35.0-47.0 [facility] Comment on above: Performed By: #### A PTT, TSH5, HEMDF, LDH3, DDI2, BMP3M, ESR, FOLT3, URIC3, FEIBC, FERR3, B12, FT4M #### [place] [address] [place] [address] #### HVAAO, ANA3, HEPAN, B2GPG, B2GPM, B2GPA #### [address] #### LUPUS #### The performing lab is in the report. Hemoglobin (Bld) [Mass/Vol] 13.0 g/dL Normal 11.7-16.0 [facility] Comment on above: Performed By: #### A PTT, TSH5, HEMDF, LDH3, DDI2, BMP3M, ESR, FOLT3, URIC3, FEIBC, FERR3, B12, FT4M #### [address] [place] #### HVAAO, ANA3, HEPAN, B2GPG, B2GPM, B2GPA #### [address] #### LUPUS #### The performing lab is in the report. Lymphocytes (Bld) [#/Vol] 1.8 10*3/uL Normal 1.0-4.3 [facility] Comment on above: Performed By: #### A PTT, TSH5, HEMDF, LDH3, DDI2, BMP3M, ESR, FOLT3, URIC3, FEIBC, FERR3, B12, FT4M #### [address] [place] #### HVAAO, ANA3, HEPAN, B2GPG, B2GPM, B2GPA #### [address] #### LUPUS #### The performing lab is in the report. Lymphocytes/100 WBC (Bld) 16.1 % Low 20.0-40.0 [facility] Comment on above: Performed By: #### A PTT, TSH5, HEMDF, LDH3, DDI2, BMP3M, ESR, FOLT3, URIC3, FEIBC, FERR3, B12, FT4M #### [facility] [address] [place] [address] #### HVAAO, ANA3, HEPAN, B2GPG, B2GPM, B2GPA #### [address] #### LUPUS #### The performing lab is in the report. MCH (RBC) [Entitic mass] 30.4 pg Normal 26.0-34.0 [facility] Comment on above: Performed By: #### A PTT, TSH5, HEMDF, LDH3, DDI2, BMP3M, ESR, FOLT3, URIC3, FEIBC, FERR3, B12, FT4M #### [facility] [address] [place] #### HVAAO, ANA3, HEPAN, B2GPG, B2GPM, B2GPA #### [address] #### LUPUS #### The performing lab is in the report. MCHC 32.8 % Normal 32.0-36.0 [facility] Comment on above: Performed By: #### A PTT, TSH5, HEMDF, LDH3, DDI2, BMP3M, ESR, FOLT3, URIC3, FEIBC, FERR3, B12, FT4M #### [place] [address] [facility] [place] #### HVAAO, ANA3, HEPAN, B2GPG, B2GPM, B2GPA #### [address] #### LUPUS #### The performing lab is in the report. MCV (RBC) [Entitic vol] 92.6 fL Normal 79.0-98.0 [facility] Comment on above: Performed By: #### A PTT, TSH5, HEMDF, LDH3, DDI2, BMP3M, ESR, FOLT3, URIC3, FEIBC, FERR3, B12, FT4M #### [place] [address] [place] #### HVAAO, ANA3, HEPAN, B2GPG, B2GPM, B2GPA #### [address] #### LUPUS #### The performing lab is in the report. Monocytes (Bld) [#/Vol] 0.9 10*3/uL High 0.0-0.8 [facility] Comment on above: Performed By: #### A PTT, TSH5, HEMDF, LDH3, DDI2, BMP3M, ESR, FOLT3, URIC3, FEIBC, FERR3, B12, FT4M #### [address] [place] [address] #### HVAAO, ANA3, HEPAN, B2GPG, B2GPM, B2GPA #### [address] #### LUPUS #### The performing lab is in the report. Monocytes/100 WBC (Bld) 7.9 % Normal 2.0-10.0 [facility] Comment on above: Performed By: #### A PTT, TSH5, HEMDF, LDH3, DDI2, BMP3M, ESR, FOLT3, URIC3, FEIBC, FERR3, B12, FT4M #### [facility] [address] [place] [address] #### HVAAO, ANA3, HEPAN, B2GPG, B2GPM, B2GPA #### [address] #### LUPUS #### The performing lab is in the report. Platelet mean volume (Bld) [Entitic vol] 8.7 fL Normal 7.4-10.4 [facility] Comment on above: Performed By: #### A PTT, TSH5, HEMDF, LDH3, DDI2, BMP3M, ESR, FOLT3, URIC3, FEIBC, FERR3, B12, FT4M #### [facility] [address] [place] [address] #### HVAAO, ANA3, HEPAN, B2GPG, B2GPM, B2GPA #### [address] #### LUPUS #### The performing lab is in the report. Platelets (Bld) [#/Vol] 236 10*3/uL Normal 140-440 [facility] Comment on above: Performed By: #### A PTT, TSH5, HEMDF, LDH3, DDI2, BMP3M, ESR, FOLT3, URIC3, FEIBC, FERR3, B12, FT4M #### [facility] [address] [place] [address] #### HVAAO, ANA3, HEPAN, B2GPG, B2GPM, B2GPA #### [address] #### LUPUS #### The performing lab is in the report. RBC (Bld) [#/Vol] 4.29 10*6/uL Normal 3.80-5.20 [facility] Comment on above: Performed By: #### A PTT, TSH5, HEMDF, LDH3, DDI2, BMP3M, ESR, FOLT3, URIC3, FEIBC, FERR3, B12, FT4M #### [facility] [address] [place] [address] #### HVAAO, ANA3, HEPAN, B2GPG, B2GPM, B2GPA #### [address] #### LUPUS #### The performing lab is in the report. WBC (Bld) [#/Vol] 11.0 10*3/uL High 3.6-10.7 [facility] Comment on above: Performed By: #### A PTT, TSH5, HEMDF, LDH3, DDI2, BMP3M, ESR, FOLT3, URIC3, FEIBC, FERR3, B12, FT4M #### [facility] [address] [place] [address] #### HVAAO, ANA3, HEPAN, B2GPG, B2GPM, B2GPA #### [address] #### LUPUS #### The performing lab is in the report. APTTon 11-07-2021 aPTT Coag (Bld) [Time] 29.9 s Normal 20.0-30.5 [facility] Comment on above: Result Comment: NOTE : The therapeutic time for Heparin anticoagulation, based on Xa activity inhibition, is an APTT of 46-80 seconds. Performed By: #### A PTT, TSH5, HEMDF, LDH3, DDI2, BMP3M, ESR, FOLT3, URIC3, FEIBC, FERR3, B12, FT4M #### [facility] [address] [place] [address] #### HVAAO, ANA3, HEPAN, B2GPG, B2GPM, B2GPA #### [address] #### LUPUS #### The performing lab is in the report. Basic Metabolic Panelon 10-23 Calcium [Mass/Vol] 9.1 mg/dL Normal 8.4-10.4 [facility] Comment on above: Performed By: #### A PTT, TSH5, HEMDF, LDH3, DDI2, BMP3M, ESR, FOLT3, URIC3, FEIBC, FERR3, B12, FT4M #### [facility] [address] [place] [address] #### HVAAO, ANA3, HEPAN, B2GPG, B2GPM, B2GPA #### [address] #### LUPUS #### The performing lab is in the report. Anion gap [Moles/Vol] 5 mmol/L Normal 3-13 [facility] Comment on above: Performed By: #### A PTT, TSH5, HEMDF, LDH3, DDI2, BMP3M, ESR, FOLT3, URIC3, FEIBC, FERR3, B12, FT4M #### [facility] [address] [place] [address] #### HVAAO, ANA3, HEPAN, B2GPG, B2GPM, B2GPA #### [address] #### LUPUS #### The performing lab is in the report. CO2 [Moles/Vol] 27 mmol/L Normal 22-30 [facility] Comment on above: Performed By: #### A PTT, TSH5, HEMDF, LDH3, DDI2, BMP3M, ESR, FOLT3, URIC3, FEIBC, FERR3, B12, FT4M #### [facility] [address] [place] [address] #### HVAAO, ANA3, HEPAN, B2GPG, B2GPM, B2GPA #### [address] #### LUPUS #### The performing lab is in the report. Creatinine [Mass/Vol] 0.87 mg/dL Normal 0.52-1.25 [facility] Comment on above: Performed By: #### A PTT, TSH5, HEMDF, LDH3, DDI2, BMP3M, ESR, FOLT3, URIC3, FEIBC, FERR3, B12, FT4M #### [address] [place] [address] #### HVAAO, ANA3, HEPAN, B2GPG, B2GPM, B2GPA #### [address] #### LUPUS #### The performing lab is in the report. GFR/1.73 sq M.predicted among blacks MDRD (S/P/Bld) [Vol rate/Area] 73.7 mL/min/{1.73_m2} Normal >60 [facility] Comment on above: Performed By: #### A PTT, TSH5, HEMDF, LDH3, DDI2, BMP3M, ESR, FOLT3, URIC3, FEIBC, FERR3, B12, FT4M #### [address] [place] [address] #### HVAAO, ANA3, HEPAN, B2GPG, B2GPM, B2GPA #### [address] [place] [address] #### LUPUS #### The performing lab is in the report. GFR/1.73 sq M.predicted among non-blacks MDRD (S/P/Bld) [Vol rate/Area] 63.6 mL/min/{1.73_m2} Normal >60 [facility] Comment on above: Result Comment: KDIG O [...] FOLT3, URIC3, FEIBC, FERR3, B12, FT4M #### [facility] [employer] [facility] [address] [place] [address] #### HVAAO, ANA3, HEPAN, B2GPG, B2GPM, B2GPA #### [facility] [employer] [address] [address] #### LUPUS #### The performing lab is in the report. Glucose [Mass/Vol] 111 mg/dL High 70-100 [facility] Comment on above: Performed By: #### A PTT, TSH5, HEMDF, LDH3, DDI2, BMP3M, ESR, FOLT3, URIC3, FEIBC, FERR3, B12, FT4M #### [facility] [employer] [facility] [address] [place] [address] #### HVAAO, ANA3, HEPAN, B2GPG, B2GPM, B2GPA #### [address] #### LUPUS #### The performing lab is in the report. Urea nitrogen [Mass/Vol] 12 mg/dL Normal 9-20 [facility] Comment on above: Performed By: #### A PTT, TSH5, HEMDF, LDH3, DDI2, BMP3M, ESR, FOLT3, URIC3, FEIBC, FERR3, B12, FT4M #### [facility] [address] [place] [address] #### HVAAO, ANA3, HEPAN, B2GPG, B2GPM, B2GPA #### [address] #### LUPUS #### The performing lab is in the report. Chloride [Moles/Vol] 109 mmol/L High 98-107 [facility] Comment on above: Performed By: #### A PTT, TSH5, HEMDF, LDH3, DDI2, BMP3M, ESR, FOLT3, URIC3, FEIBC, FERR3, B12, FT4M #### [place] [address] [place] [address] #### HVAAO, ANA3, HEPAN, B2GPG, B2GPM, B2GPA #### [address] #### LUPUS #### The performing lab is in the report. Potassium [Moles/Vol] 3.9 mmol/L Normal 3.5-5.1 [facility] Comment on above: Performed By: #### A PTT, TSH5, HEMDF, LDH3, DDI2, BMP3M, ESR, FOLT3, URIC3, FEIBC, FERR3, B12, FT4M #### [place] [address] [place] [address] #### HVAAO, ANA3, HEPAN, B2GPG, B2GPM, B2GPA #### [address] #### LUPUS #### The performing lab is in the report. Sodium [Moles/Vol] 141 mmol/L Normal 135-145 [facility] Comment on above: Performed By: #### A PTT, TSH5, HEMDF, LDH3, DDI2, BMP3M, ESR, FOLT3, URIC3, FEIBC, FERR3, B12, FT4M #### [facility] [address] [place] [address] #### HVAAO, ANA3, HEPAN, B2GPG, B2GPM, B2GPA #### [address] #### LUPUS #### The performing lab is in the report. Hemogram w/ Autodiffon 11-07 Abs Baso Cnt 0.0 10*3/uL Normal 0.0-0.2 [facility] Comment on above: Performed By: #### A PTT, TSH5, HEMDF, LDH3, DDI2, BMP3M, ESR, FOLT3, URIC3, FEIBC, FERR3, B12, FT4M #### [place] [address] [place] [address] #### HVAAO, ANA3, HEPAN, B2GPG, B2GPM, B2GPA #### [address] [id number] #### LUPUS #### The performing lab is in the report. Abs Neutrophile Cnt 6.0 10*3/uL Normal 1.8-7.0 [facility] Comment on above: Performed By: #### A PTT, TSH5, HEMDF, LDH3, DDI2, BMP3M, ESR, FOLT3, URIC3, FEIBC, FERR3, B12, FT4M #### [address] [place] [address] #### HVAAO, ANA3, HEPAN, B2GPG, B2GPM, B2GPA #### [address] #### LUPUS #### The performing lab is in the report. Basophils/100 WBC (Bld) 0.5 % Normal 0.0-2.0 [facility] Comment on above: Performed By: #### A PTT, TSH5, HEMDF, LDH3, DDI2, BMP3M, ESR, FOLT3, URIC3, FEIBC, FERR3, B12, FT4M #### [facility] [address] [place] [address] #### HVAAO, ANA3, HEPAN, B2GPG, B2GPM, B2GPA #### [address] #### LUPUS #### The performing lab is in the report. Eosinophils (Bld) [#/Vol] 0.4 10*3/uL Normal 0.0-0.5 [facility] Comment on above: Performed By: #### A PTT, TSH5, HEMDF, LDH3, DDI2, BMP3M, ESR, FOLT3, URIC3, FEIBC, FERR3, B12, FT4M #### [address] [place] [address] #### HVAAO, ANA3, HEPAN, B2GPG, B2GPM, B2GPA #### [address] #### LUPUS #### The performing lab is in the report. Eosinophils/100 WBC (Bld) 4.0 % Normal 1.0-6.0 [facility] Comment on above: Performed By: #### A PTT, TSH5, HEMDF, LDH3, DDI2, BMP3M, ESR, FOLT3, URIC3, FEIBC, FERR3, B12, FT4M #### [address] [place] [address] #### HVAAO, ANA3, HEPAN, B2GPG, B2GPM, B2GPA #### [address] #### LUPUS #### The performing lab is in the report. Erythrocyte distribution width (RBC) [Ratio] 15.1 % High 11.5-14.5 [facility] Comment on above: Performed By: #### A PTT, TSH5, HEMDF, LDH3, DDI2, BMP3M, ESR, FOLT3, URIC3, FEIBC, FERR3, B12, FT4M #### [place] [address] [place] [address] #### HVAAO, ANA3, HEPAN, B2GPG, B2GPM, B2GPA #### [address] #### LUPUS #### The performing lab is in the report. Granulocytes/100 WBC (Bld) 64.8 % Normal 40.0-80.0 [facility] Comment on above: Performed By: #### A PTT, TSH5, HEMDF, LDH3, DDI2, BMP3M, ESR, FOLT3, URIC3, FEIBC, FERR3, B12, FT4M #### [address] [place] #### HVAAO, ANA3, HEPAN, B2GPG, B2GPM, B2GPA #### [address] #### LUPUS #### The performing lab is in the report. Hematocrit (Bld) [Volume fraction] 42.6 % Normal 35.0-47.0 [facility] Comment on above: Performed By: #### A PTT, TSH5, HEMDF, LDH3, DDI2, BMP3M, ESR, FOLT3, URIC3, FEIBC, FERR3, B12, FT4M #### [address] [place] [address] #### HVAAO, ANA3, HEPAN, B2GPG, B2GPM, B2GPA #### [address] #### LUPUS #### The performing lab is in the report. Hemoglobin (Bld) [Mass/Vol] 13.9 g/dL Normal 11.7-16.0 [facility] Comment on above: Performed By: #### A PTT, TSH5, HEMDF, LDH3, DDI2, BMP3M, ESR, FOLT3, URIC3, FEIBC, FERR3, B12, FT4M #### [place] [address] [place] [address] #### HVAAO, ANA3, HEPAN, B2GPG, B2GPM, B2GPA #### [address] #### LUPUS #### The performing lab is in the report. Lymphocytes (Bld) [#/Vol] 2.1 10*3/uL Normal 1.0-4.3 [facility] Comment on above: Performed By: #### A PTT, TSH5, HEMDF, LDH3, DDI2, BMP3M, ESR, FOLT3, URIC3, FEIBC, FERR3, B12, FT4M #### [address] [place] [address] #### HVAAO, ANA3, HEPAN, B2GPG, B2GPM, B2GPA #### [address] #### LUPUS #### The performing lab is in the report. Lymphocytes/100 WBC (Bld) 22.8 % Normal 20.0-40.0 [facility] Comment on above: Performed By: #### A PTT, TSH5, HEMDF, LDH3, DDI2, BMP3M, ESR, FOLT3, URIC3, FEIBC, FERR3, B12, FT4M #### [address] [address] #### HVAAO, ANA3, HEPAN, B2GPG, B2GPM, B2GPA #### [address] #### LUPUS #### The performing lab is in the report. MCH (RBC) [Entitic mass] 30.2 pg Normal 26.0-34.0 [facility] Comment on above: Performed By: #### A PTT, TSH5, HEMDF, LDH3, DDI2, BMP3M, ESR, FOLT3, URIC3, FEIBC, FERR3, B12, FT4M #### [address] [place] [id number] #### HVAAO, ANA3, HEPAN, B2GPG, B2GPM, B2GPA #### [address] #### LUPUS #### The performing lab is in the report. MCHC 32.7 % Normal 32.0-36.0 [facility] Comment on above: Performed By: #### A PTT, TSH5, HEMDF, LDH3, DDI2, BMP3M, ESR, FOLT3, URIC3, FEIBC, FERR3, B12, FT4M #### [facility] [address] [place], [place] #### HVAAO, ANA3, HEPAN, B2GPG, B2GPM, B2GPA #### [address] #### LUPUS #### The performing lab is in the report. MCV (RBC) [Entitic vol] 92.4 fL Normal 79.0-98.0 [facility] Comment on above: Performed By: #### A PTT, TSH5, HEMDF, LDH3, DDI2, BMP3M, ESR, FOLT3, URIC3, FEIBC, FERR3, B12, FT4M #### [facility] [address] [place] #### HVAAO, ANA3, HEPAN, B2GPG, B2GPM, B2GPA #### [address] #### LUPUS #### The performing lab is in the report. Monocytes (Bld) [#/Vol] 0.7 10*3/uL Normal 0.0-0.8 [facility] Comment on above: Performed By: #### A PTT, TSH5, HEMDF, LDH3, DDI2, BMP3M, ESR, FOLT3, URIC3, FEIBC, FERR3, B12, FT4M #### [facility] [address] [place], [place] #### HVAAO, ANA3, HEPAN, B2GPG, B2GPM, B2GPA #### [address] #### LUPUS #### The performing lab is in the report. Monocytes/100 WBC (Bld) 7.9 % Normal 2.0-10.0 [facility] Comment on above: Performed By: #### A PTT, TSH5, HEMDF, LDH3, DDI2, BMP3M, ESR, FOLT3, URIC3, FEIBC, FERR3, B12, FT4M #### [facility] [address] [place] [address] #### HVAAO, ANA3, HEPAN, B2GPG, B2GPM, B2GPA #### [address] #### LUPUS #### The performing lab is in the report. Platelet mean volume (Bld) [Entitic vol] 8.7 fL Normal 7.4-10.4 [facility] Comment on above: Performed By: #### A PTT, TSH5, HEMDF, LDH3, DDI2, BMP3M, ESR, FOLT3, URIC3, FEIBC, FERR3, B12, FT4M #### [facility] [address] [place] [address] #### HVAAO, ANA3, HEPAN, B2GPG, B2GPM, B2GPA #### [address] #### LUPUS #### The performing lab is in the report. Platelets (Bld) [#/Vol] 232 10*3/uL Normal 140-440 [facility] Comment on above: Performed By: #### A PTT, TSH5, HEMDF, LDH3, DDI2, BMP3M, ESR, FOLT3, URIC3, FEIBC, FERR3, B12, FT4M #### [facility] [address] [place] [address] #### HVAAO, ANA3, HEPAN, B2GPG, B2GPM, B2GPA #### [address] #### LUPUS #### The performing lab is in the report. RBC (Bld) [#/Vol] 4.61 10*6/uL Normal 3.80-5.20 [facility] Comment on above: Performed By: #### A PTT, TSH5, HEMDF, LDH3, DDI2, BMP3M, ESR, FOLT3, URIC3, FEIBC, FERR3, B12, FT4M #### [facility] [address] [place] [address] #### HVAAO, ANA3, HEPAN, B2GPG, B2GPM, B2GPA #### [address] #### LUPUS #### The performing lab is in the report. WBC (Bld) [#/Vol] 9.2 10*3/uL Normal 3.6-10.7 [facility] Comment on above: Performed By: #### A PTT, TSH5, HEMDF, LDH3, DDI2, BMP3M, ESR, FOLT3, URIC3, FEIBC, FERR3, B12, FT4M #### [facility] [address] [place] [address] #### HVAAO, ANA3, HEPAN, B2GPG, B2GPM, B2GPA #### [address] #### LUPUS #### The performing lab [...] Real-time, RT-PCR This assay was developed by [employer] and distributed under an Emergency Use Authorization (EUA) granted by the FDA for the qualitative detection of nucleic acids from SARS-CoV-2, Influenza A, Influenza B, and Respiratory Syncytial Virus. Provider and patient fact sheets can be found at https://www.fda.gov/media /224890/download and https://www.fda.gov/media /583968/download. Expected Result: Not Detected _ Method: Real-time, RT-PCR This assay was developed by [employer] and distributed under an Emergency Use Authorization (EUA) granted by the FDA for the qualitative detection of nucleic acids from SARS-CoV-2, Influenza A, Influenza B, and Respiratory Syncytial Virus. Provider and patient fact sheets can be found at https://www.fda.gov/media /664994/download and https://www.fda.gov/media /261819/download. Normal [facility] Comment on above: Performed By: #### A PTT, TSH5, HEMDF, LDH3, DDI2, BMP3M, ESR, FOLT3, URIC3, FEIBC, FERR3, B12, FT4M #### [facility] [address] [place] [address] #### HVAAO, ANA3, HEPAN, B2GPG, B2GPM, B2GPA #### [address] [id number] #### LUPUS #### The performing lab is in the report. APTTon 11-06-2021 aPTT Coag (Bld) [Time] 28.1 s Normal 20.0-30.5 [facility] Comment on above: Result Comment: NOTE : The therapeutic time for Heparin anticoagulation, based on Xa activity inhibition, is an APTT of 46-80 seconds. Performed By: #### A PTT, TSH5, HEMDF, LDH3, DDI2, BMP3M, ESR, FOLT3, URIC3, FEIBC, FERR3, B12, FT4M #### [facility] [address] [place] [address] #### HVAAO, ANA3, HEPAN, B2GPG, B2GPM, B2GPA #### [address] [phone] #### LUPUS #### The performing lab is in the report. Basic Metabolic Panelon 02-1 5-2022 Anion gap [Moles/Vol] 6 mmol/L Normal 3-13 [facility] Comment on above: Performed By: #### A PTT, TSH5, HEMDF, LDH3, DDI2, BMP3M, ESR, FOLT3, URIC3, FEIBC, FERR3, B12, FT4M #### [place] [address] [place] [address] #### HVAAO, ANA3, HEPAN, B2GPG, B2GPM, B2GPA #### [address] #### LUPUS #### The performing lab is in the report. Calcium [Mass/Vol] 9.0 mg/dL Normal 8.4-10.4 [facility] Comment on above: Performed By: #### A PTT, TSH5, HEMDF, LDH3, DDI2, BMP3M, ESR, FOLT3, URIC3, FEIBC, FERR3, B12, FT4M #### [address] [place] [address] #### HVAAO, ANA3, HEPAN, B2GPG, B2GPM, B2GPA #### [address] #### LUPUS #### The performing lab is in the report. CO2 [Moles/Vol] 28 mmol/L Normal 22-30 [facility] Comment on above: Performed By: #### A PTT, TSH5, HEMDF, LDH3, DDI2, BMP3M, ESR, FOLT3, URIC3, FEIBC, FERR3, B12, FT4M #### [address] [place] [address] #### HVAAO, ANA3, HEPAN, B2GPG, B2GPM, B2GPA #### [address] #### LUPUS #### The performing lab is in the report. Glucose [Mass/Vol] 105 mg/dL High 70-100 [facility] Comment on above: Performed By: #### A PTT, TSH5, HEMDF, LDH3, DDI2, BMP3M, ESR, FOLT3, URIC3, FEIBC, FERR3, B12, FT4M #### [place] [address] [place] [address] #### HVAAO, ANA3, HEPAN, B2GPG, B2GPM, B2GPA #### [address] #### LUPUS #### The performing lab is in the report. Urea nitrogen [Mass/Vol] 14 mg/dL Normal 9-20 [facility] Comment on above: Performed By: #### A PTT, TSH5, HEMDF, LDH3, DDI2, BMP3M, ESR, FOLT3, URIC3, FEIBC, FERR3, B12, FT4M #### [place] [address] [place] [address] #### HVAAO, ANA3, HEPAN, B2GPG, B2GPM, B2GPA #### [address] #### LUPUS #### The performing lab is in the report. Creatinine [Mass/Vol] 0.90 mg/dL Normal 0.52-1.25 [facility] Comment on above: Performed By: #### A PTT, TSH5, HEMDF, LDH3, DDI2, BMP3M, ESR, FOLT3, URIC3, FEIBC, FERR3, B12, FT4M #### [address] [place] [address] #### HVAAO, ANA3, HEPAN, B2GPG, B2GPM, B2GPA #### [address] #### LUPUS #### The performing lab is in the report. GFR/1.73 sq M.predicted among blacks MDRD (S/P/Bld) [Vol rate/Area] 70.7 mL/min/{1.73_m2} Normal >60 [facility] Comment on above: Performed By: #### A PTT, TSH5, HEMDF, LDH3, DDI2, BMP3M, ESR, FOLT3, URIC3, FEIBC, FERR3, B12, FT4M #### [facility] [address] [place] [address] #### HVAAO, ANA3, HEPAN, B2GPG, B2GPM, B2GPA #### [facility] [address] [place] [address] #### LUPUS #### The performing lab is in the report. GFR/1.73 sq M.predicted among non-blacks MDRD (S/P/Bld) [Vol rate/Area] 61.0 mL/min/{1.73_m2} Normal >60 [facility] Comment on above: Result Comment: KDIG O [...] URIC3, FEIBC, FERR3, B12, FT4M #### [facility] [address] [place] [address] #### HVAAO, ANA3, HEPAN, B2GPG, B2GPM, B2GPA #### [facility] [address] [place] [address] #### LUPUS #### The performing lab is in the report. Potassium [Moles/Vol] 3.6 mmol/L Normal 3.5-5.1 [facility] Comment on above: Performed By: #### A PTT, TSH5, HEMDF, LDH3, DDI2, BMP3M, ESR, FOLT3, URIC3, FEIBC, FERR3, B12, FT4M #### [facility] [address] [place] [address] #### HVAAO, ANA3, HEPAN, B2GPG, B2GPM, B2GPA #### [address] #### LUPUS #### The performing lab is in the report. Chloride [Moles/Vol] 108 mmol/L High 98-107 [facility] Comment on above: Performed By: #### A PTT, TSH5, HEMDF, LDH3, DDI2, BMP3M, ESR, FOLT3, URIC3, FEIBC, FERR3, B12, FT4M #### [place] [address] [place] #### HVAAO, ANA3, HEPAN, B2GPG, B2GPM, B2GPA #### [address] #### LUPUS #### The performing lab is in the report. Sodium [Moles/Vol] 141 mmol/L Normal 135-145 [facility] Comment on above: Performed By: #### A PTT, TSH5, HEMDF, LDH3, DDI2, BMP3M, ESR, FOLT3, URIC3, FEIBC, FERR3, B12, FT4M #### [place] [address] [place] [address] #### HVAAO, ANA3, HEPAN, B2GPG, B2GPM, B2GPA #### [address] #### LUPUS #### The performing lab is in the report. Hemogram w/ Autodiffon 11-06 Abs Baso Cnt 0.1 10*3/uL Normal 0.0-0.2 [facility] Comment on above: Performed By: #### A PTT, TSH5, HEMDF, LDH3, DDI2, BMP3M, ESR, FOLT3, URIC3, FEIBC, FERR3, B12, FT4M #### [address] [place] #### HVAAO, ANA3, HEPAN, B2GPG, B2GPM, B2GPA #### [address] #### LUPUS #### The performing lab is in the report. Abs Neutrophile Cnt 5.9 10*3/uL Normal 1.8-7.0 [facility] Comment on above: Performed By: #### A PTT, TSH5, HEMDF, LDH3, DDI2, BMP3M, ESR, FOLT3, URIC3, FEIBC, FERR3, B12, FT4M #### [address] [place] [address] #### HVAAO, ANA3, HEPAN, B2GPG, B2GPM, B2GPA #### [address] #### LUPUS #### The performing lab is in the report. Basophils/100 WBC (Bld) 0.7 % Normal 0.0-2.0 [facility] Comment on above: Performed By: #### A PTT, TSH5, HEMDF, LDH3, DDI2, BMP3M, ESR, FOLT3, URIC3, FEIBC, FERR3, B12, FT4M #### [address] [facility] [place] #### HVAAO, ANA3, HEPAN, B2GPG, B2GPM, B2GPA #### [address] #### LUPUS #### The performing lab is in the report. Eosinophils (Bld) [#/Vol] 0.3 10*3/uL Normal 0.0-0.5 [facility] Comment on above: Performed By: #### A PTT, TSH5, HEMDF, LDH3, DDI2, BMP3M, ESR, FOLT3, URIC3, FEIBC, FERR3, B12, FT4M #### [address] [facility] [place] #### HVAAO, ANA3, HEPAN, B2GPG, B2GPM, B2GPA #### [address] #### LUPUS #### The performing lab is in the report. Eosinophils/100 WBC (Bld) 3.7 % Normal 1.0-6.0 [facility] Comment on above: Performed By: #### A PTT, TSH5, HEMDF, LDH3, DDI2, BMP3M, ESR, FOLT3, URIC3, FEIBC, FERR3, B12, FT4M #### [address] [place] #### HVAAO, ANA3, HEPAN, B2GPG, B2GPM, B2GPA #### [address] #### LUPUS #### The performing lab is in the report. Erythrocyte distribution width (RBC) [Ratio] 15.2 % High 11.5-14.5 [facility] Comment on above: Performed By: #### A PTT, TSH5, HEMDF, LDH3, DDI2, BMP3M, ESR, FOLT3, URIC3, FEIBC, FERR3, B12, FT4M #### [address] [facility] [place] #### HVAAO, ANA3, HEPAN, B2GPG, B2GPM, B2GPA #### [address] #### LUPUS #### The performing lab is in the report. Granulocytes/100 WBC (Bld) 65.8 % Normal 40.0-80.0 [facility] Comment on above: Performed By: #### A PTT, TSH5, HEMDF, LDH3, DDI2, BMP3M, ESR, FOLT3, URIC3, FEIBC, FERR3, B12, FT4M #### [address] [facility] [place] #### HVAAO, ANA3, HEPAN, B2GPG, B2GPM, B2GPA #### [address] #### LUPUS #### The performing lab is in the report. Hematocrit (Bld) [Volume fraction] 39.8 % Normal 35.0-47.0 [facility] Comment on above: Performed By: #### A PTT, TSH5, HEMDF, LDH3, DDI2, BMP3M, ESR, FOLT3, URIC3, FEIBC, FERR3, B12, FT4M #### [facility] [address] [place] [address] #### HVAAO, ANA3, HEPAN, B2GPG, B2GPM, B2GPA #### [address] #### LUPUS #### The performing lab is in the report. Hemoglobin (Bld) [Mass/Vol] 13.2 g/dL Normal 11.7-16.0 [facility] Comment on above: Performed By: #### A PTT, TSH5, HEMDF, LDH3, DDI2, BMP3M, ESR, FOLT3, URIC3, FEIBC, FERR3, B12, FT4M #### [facility] [address] [place] [address] #### HVAAO, ANA3, HEPAN, B2GPG, B2GPM, B2GPA #### [address] #### LUPUS #### The performing lab is in the report. Lymphocytes (Bld) [#/Vol] 2.0 10*3/uL Normal 1.0-4.3 [facility] Comment on above: Performed By: #### A PTT, TSH5, HEMDF, LDH3, DDI2, BMP3M, ESR, FOLT3, URIC3, FEIBC, FERR3, B12, FT4M #### [address] [place] [address] #### HVAAO, ANA3, HEPAN, B2GPG, B2GPM, B2GPA #### [address] #### LUPUS #### The performing lab is in the report. Lymphocytes/100 WBC (Bld) 22.0 % Normal 20.0-40.0 [facility] Comment on above: Performed By: #### A PTT, TSH5, HEMDF, LDH3, DDI2, BMP3M, ESR, FOLT3, URIC3, FEIBC, FERR3, B12, FT4M #### [facility] [address] [place] [address] #### HVAAO, ANA3, HEPAN, B2GPG, B2GPM, B2GPA #### [address] #### LUPUS #### The performing lab is in the report. MCH (RBC) [Entitic mass] 30.1 pg Normal 26.0-34.0 [facility] Comment on above: Performed By: #### A PTT, TSH5, HEMDF, LDH3, DDI2, BMP3M, ESR, FOLT3, URIC3, FEIBC, FERR3, B12, FT4M #### [facility] [address] [place] [address] #### HVAAO, ANA3, HEPAN, B2GPG, B2GPM, B2GPA #### [address] #### LUPUS #### The performing lab is in the report. MCHC 33.2 % Normal 32.0-36.0 [facility] Comment on above: Performed By: #### A PTT, TSH5, HEMDF, LDH3, DDI2, BMP3M, ESR, FOLT3, URIC3, FEIBC, FERR3, B12, FT4M #### [facility] [address] [facility] [place] [address] #### HVAAO, ANA3, HEPAN, B2GPG, B2GPM, B2GPA #### [address] #### LUPUS #### The performing lab is in the report. MCV (RBC) [Entitic vol] 90.6 fL Normal 79.0-98.0 [facility] Comment on above: Performed By: #### A PTT, TSH5, HEMDF, LDH3, DDI2, BMP3M, ESR, FOLT3, URIC3, FEIBC, FERR3, B12, FT4M #### [place] [address] [place] [address] #### HVAAO, ANA3, HEPAN, B2GPG, B2GPM, B2GPA #### [address] #### LUPUS #### The performing lab is in the report. Monocytes (Bld) [#/Vol] 0.7 10*3/uL Normal 0.0-0.8 [facility] Comment on above: Performed By: #### A PTT, TSH5, HEMDF, LDH3, DDI2, BMP3M, ESR, FOLT3, URIC3, FEIBC, FERR3, B12, FT4M #### [address] [place] [address] #### HVAAO, ANA3, HEPAN, B2GPG, B2GPM, B2GPA #### [address] #### LUPUS #### The performing lab is in the report. Monocytes/100 WBC (Bld) 7.8 % Normal 2.0-10.0 [facility] Comment on above: Performed By: #### A PTT, TSH5, HEMDF, LDH3, DDI2, BMP3M, ESR, FOLT3, URIC3, FEIBC, FERR3, B12, FT4M #### [address] [facility] [place] #### HVAAO, ANA3, HEPAN, B2GPG, B2GPM, B2GPA #### [address] #### LUPUS #### The performing lab is in the report. Platelet mean volume (Bld) [Entitic vol] 8.7 fL Normal 7.4-10.4 [facility] Comment on above: Performed By: #### A PTT, TSH5, HEMDF, LDH3, DDI2, BMP3M, ESR, FOLT3, URIC3, FEIBC, FERR3, B12, FT4M #### [place] [address] [place] [address] #### HVAAO, ANA3, HEPAN, B2GPG, B2GPM, B2GPA #### [address] #### LUPUS #### The performing lab is in the report. Platelets (Bld) [#/Vol] 207 10*3/uL Normal 140-440 [facility] Comment on above: Performed By: #### A PTT, TSH5, HEMDF, LDH3, DDI2, BMP3M, ESR, FOLT3, URIC3, FEIBC, FERR3, B12, FT4M #### [address] [place] #### HVAAO, ANA3, HEPAN, B2GPG, B2GPM, B2GPA #### [address] #### LUPUS #### The performing lab is in the report. RBC (Bld) [#/Vol] 4.39 10*6/uL Normal 3.80-5.20 [facility] Comment on above: Performed By: #### A PTT, TSH5, HEMDF, LDH3, DDI2, BMP3M, ESR, FOLT3, URIC3, FEIBC, FERR3, B12, FT4M #### [address] [facility] [place] #### HVAAO, ANA3, HEPAN, B2GPG, B2GPM, B2GPA #### [address] #### LUPUS #### The performing lab is in the report. WBC (Bld) [#/Vol] 9.0 10*3/uL Normal 3.6-10.7 [facility] Comment on above: Performed By: #### A PTT, TSH5, HEMDF, LDH3, DDI2, BMP3M, ESR, FOLT3, URIC3, FEIBC, FERR3, B12, FT4M #### [facility] [facility] [address] [place] [address] #### HVAAO, ANA3, HEPAN, B2GPG, B2GPM, B2GPA #### [facility] [address], [place] #### LUPUS #### The performing lab is in the report. APTTon 11-05-2021 aPTT Coag (Bld) [Time] 58.6 s High 20.0-30.5 [facility] Comment on above: Result Comment: NOTE : The therapeutic time for Heparin anticoagulation, based on Xa activity inhibition, is an APTT of 46-80 seconds. Performed By: #### A PTT, TSH5, HEMDF, LDH3, DDI2, BMP3M, ESR, FOLT3, URIC3, FEIBC, FERR3, B12, FT4M ####[facility] [employer] [place] [address] [place] [address]#### HVAAO, ANA3, HEPAN, B2GPG, B2GPM, B2GPA ####[place] [address] [place], [place] #### LUPUS ####The performing lab is in the report. aPTT Coag (Bld) [Time] 65.8 s High 20.0-30.5 [facility] Comment on above: Result Comment: NOTE : The therapeutic time for Heparin anticoagulation, based on Xa activity inhibition, is an APTT of 46-80 seconds. Performed By: #### A PTT, TSH5, HEMDF, LDH3, DDI2, BMP3M, ESR, FOLT3, URIC3, FEIBC, FERR3, B12, FT4M #### [facility] [employer] [facility] [address] [place] [address] #### HVAAO, ANA3, HEPAN, B2GPG, B2GPM, B2GPA #### [facility] [address] [place] [address] #### LUPUS #### The performing lab is in the report. Acute Hepatitis Panelon 10-23 Hep C Antibody Not detected Normal Not Detected [facility] Comment on above: Result Comment: Patients with DETECTED Hepatitis C Ab results should have a new specimen submitted for supplemental testing with a Hepatitis C Quantitative RNA assay (viral load), if clinically indicated. Performed By: #### A PTT, TSH5, HEMDF, LDH3, DDI2, BMP3M, ESR, FOLT3, URIC3, FEIBC, FERR3, B12, FT4M ####[address] [place] [address]#### HVAAO, ANA3, HEPAN, B2GPG, B2GPM, B2GPA ####[address] #### LUPUS ####The performing lab is in the report. Hep A Virus Ab,IgM Not detected Normal Not Detected [facility] Comment on above: Performed By: #### A PTT, TSH5, HEMDF, LDH3, DDI2, BMP3M, ESR, FOLT3, URIC3, FEIBC, FERR3, B12, FT4M ####[address] [address]#### HVAAO, ANA3, HEPAN, B2GPG, B2GPM, B2GPA ####[address] #### LUPUS ####The performing lab is in the report. Hep B Surface Ag Not detected Normal Not Detected [facility] Comment on above: Performed By: #### A PTT, TSH5, HEMDF, LDH3, DDI2, BMP3M, ESR, FOLT3, URIC3, FEIBC, FERR3, B12, FT4M ####[address] [address]#### HVAAO, ANA3, HEPAN, B2GPG, B2GPM, B2GPA ####[address] #### LUPUS ####The performing lab is in the report. Hep B Core IgM Not detected Normal Not Detected [facility] Comment on above: Performed By: #### A PTT, TSH5, HEMDF, LDH3, DDI2, BMP3M, ESR, FOLT3, URIC3, FEIBC, FERR3, B12, FT4M ####[facility] [place] [address]#### HVAAO, ANA3, HEPAN, B2GPG, B2GPM, B2GPA ####[facility] [place] [address] #### LUPUS ####The performing lab is in the report. Basic Metabolic Panelon 10-23 Calcium [Mass/Vol] 9.1 mg/dL Normal 8.4-10.4 [facility] Comment on above: Performed By: #### A PTT, TSH5, HEMDF, LDH3, DDI2, BMP3M, ESR, FOLT3, URIC3, FEIBC, FERR3, B12, FT4M #### [address] [place] [address] #### HVAAO, ANA3, HEPAN, B2GPG, B2GPM, B2GPA #### [address] #### LUPUS #### The performing lab is in the report. Glucose [Mass/Vol] 110 mg/dL High 70-100 [facility] Comment on above: Performed By: #### A PTT, TSH5, HEMDF, LDH3, DDI2, BMP3M, ESR, FOLT3, URIC3, FEIBC, FERR3, B12, FT4M #### [address] [place] [address] #### HVAAO, ANA3, HEPAN, B2GPG, B2GPM, B2GPA #### [address] #### LUPUS #### The performing lab is in the report. Urea nitrogen [Mass/Vol] 13 mg/dL Normal 9-20 [facility] Comment on above: Performed By: #### A PTT, TSH5, HEMDF, LDH3, DDI2, BMP3M, ESR, FOLT3, URIC3, FEIBC, FERR3, B12, FT4M #### [address] [place] [address] #### HVAAO, ANA3, HEPAN, B2GPG, B2GPM, B2GPA #### [address] #### LUPUS #### The performing lab is in the report. Anion gap [Moles/Vol] 3 mmol/L Normal 3-13 [facility] Comment on above: Performed By: #### A PTT, TSH5, HEMDF, LDH3, DDI2, BMP3M, ESR, FOLT3, URIC3, FEIBC, FERR3, B12, FT4M #### [address] [place] [address] #### HVAAO, ANA3, HEPAN, B2GPG, B2GPM, B2GPA #### [address] #### LUPUS #### The performing lab is in the report. CO2 [Moles/Vol] 29 mmol/L Normal 22-30 [facility] Comment on above: Performed By: #### A PTT, TSH5, HEMDF, LDH3, DDI2, BMP3M, ESR, FOLT3, URIC3, FEIBC, FERR3, B12, FT4M #### [address] [place] [address] #### HVAAO, ANA3, HEPAN, B2GPG, B2GPM, B2GPA #### [address] #### LUPUS #### The performing lab is in the report. Creatinine [Mass/Vol] 0.96 mg/dL Normal 0.52-1.25 [facility] Comment on above: Performed By: #### A PTT, TSH5, HEMDF, LDH3, DDI2, BMP3M, ESR, FOLT3, URIC3, FEIBC, FERR3, B12, FT4M #### [address] [place] [address] #### HVAAO, ANA3, HEPAN, B2GPG, B2GPM, B2GPA #### [facility] [employer] [facility] [address] [place] [address] #### LUPUS #### The performing lab is in the report. GFR/1.73 sq M.predicted among blacks MDRD (S/P/Bld) [Vol rate/Area] 65.4 mL/min/{1.73_m2} Normal >60 [facility] Comment on above: Performed By: #### A PTT, TSH5, HEMDF, LDH3, DDI2, BMP3M, ESR, FOLT3, URIC3, FEIBC, FERR3, B12, FT4M #### [facility] [employer] [facility] [address] [place] [address] #### HVAAO, ANA3, HEPAN, B2GPG, B2GPM, B2GPA #### [address] [address] #### LUPUS #### The performing lab is in the report. GFR/1.73 sq M.predicted among non-blacks MDRD (S/P/Bld) [Vol rate/Area] 56.4 mL/min/{1.73_m2} Abnormal >60 [facility] Comment on above: Result Comment: KDIG O [...] URIC3, FEIBC, FERR3, B12, FT4M #### [facility] [address] [place] [address] #### HVAAO, ANA3, HEPAN, B2GPG, B2GPM, B2GPA #### [address] #### LUPUS #### The performing lab is in the report. Chloride [Moles/Vol] 107 mmol/L Normal 98-107 [facility] Comment on above: Performed By: #### A PTT, TSH5, HEMDF, LDH3, DDI2, BMP3M, ESR, FOLT3, URIC3, FEIBC, FERR3, B12, FT4M #### [place] [address] [place] [address] #### HVAAO, ANA3, HEPAN, B2GPG, B2GPM, B2GPA #### [address] #### LUPUS #### The performing lab is in the report. Potassium [Moles/Vol] 3.8 mmol/L Normal 3.5-5.1 [facility] Comment on above: Performed By: #### A PTT, TSH5, HEMDF, LDH3, DDI2, BMP3M, ESR, FOLT3, URIC3, FEIBC, FERR3, B12, FT4M #### [facility] [address] [place] [address] #### HVAAO, ANA3, HEPAN, B2GPG, B2GPM, B2GPA #### [address] #### LUPUS #### The performing lab is in the report. Sodium [Moles/Vol] 139 mmol/L Normal 135-145 [facility] Comment on above: Performed By: #### A PTT, TSH5, HEMDF, LDH3, DDI2, BMP3M, ESR, FOLT3, URIC3, FEIBC, FERR3, B12, FT4M #### [place] [address] [place] [address] #### HVAAO, ANA3, HEPAN, B2GPG, B2GPM, B2GPA #### [facility] [address], [place] #### LUPUS #### The performing lab is in the report. Beta-2 Glycoprotein I IgAon 11-05-2021 Beta-2 Glycoprotein I IgA < 2.0 Normal [facility] Comment on above: Result Comment: Inte rpretive Information: Results equal to or greater than 20 U/mL = POSITIVE Results less than 20 U/mL = NEGATIVE Performed By: #### A PTT, TSH5, HEMDF, LDH3, DDI2, BMP3M, ESR, FOLT3, URIC3, FEIBC, FERR3, B12, FT4M ####[address] [address]#### HVAAO, ANA3, HEPAN, B2GPG, B2GPM, B2GPA ####[address] #### LUPUS ####The performing lab is in the report. Beta-2 Glycoprotein I IgGon 11-05-2021 Beta-2 Glycoprotein I IgG < 1.4 Normal [facility] Comment on above: Result Comment: Inte rpretive Information: Results equal to or greater than 20 U/mL = POSITIVE Results less than 20 U/mL = NEGATIVE Performed By: #### A PTT, TSH5, HEMDF, LDH3, DDI2, BMP3M, ESR, FOLT3, URIC3, FEIBC, FERR3, B12, FT4M ####[address] [place] [address]#### HVAAO, ANA3, HEPAN, B2GPG, B2GPM, B2GPA ####[address] #### LUPUS ####The performing lab is in the report. Beta-2 Glycoprotein I IgMon 11-05-2021 Beta-2 Glycoprotein I IgM 2.4 U/mL Normal [facility] Comment on above: Result Comment: Inte rpretive Information: Results equal to or greater than 20 U/mL = POSITIVE Results less than 20 U/mL = NEGATIVE Performed By: #### A PTT, TSH5, HEMDF, LDH3, DDI2, BMP3M, ESR, FOLT3, URIC3, FEIBC, FERR3, B12, FT4M ####[facility] [employer] [address] [place] [address]#### HVAAO, ANA3, HEPAN, B2GPG, B2GPM, B2GPA ####[facility] [employer] [id number] [place], [place] #### LUPUS ####The performing lab is in the report. D-Dimer, Innovanceon 022 D-Dimer, Innovance 2.22 mg/L High <0.19-0.50 [facility] Comment on above: Result Comment: Inno williamson D-Dimer values of <0.50 mg/L FEU can be used in combination with a pre-test probability model (e.g. Well's) to exclude pulmonary embolism (PE) disease, as well as an aid in the diagnosis of deep vein thrombosis (DVT). Performed By: #### A PTT, TSH5, HEMDF, LDH3, DDI2, BMP3M, ESR, FOLT3, URIC3, FEIBC, FERR3, B12, FT4M ####[facility] [employer] [address] [facility] [place] [address]#### HVAAO, ANA3, HEPAN, B2GPG, B2GPM, B2GPA ####[facility] [employer] [address] [place], [place] #### LUPUS ####The performing lab is in the report. Ferritinon 11-05-2021 Ferritin [Mass/Vol] 76 ng/mL Normal 11-264 [facility] [employer] [facility] Comment on above: Performed By: #### A PTT, TSH5, HEMDF, LDH3, DDI2, BMP3M, ESR, FOLT3, URIC3, FEIBC, FERR3, B12, FT4M #### [facility] [employer] [facility] [address] [place] [address] #### HVAAO, ANA3, HEPAN, B2GPG, B2GPM, B2GPA #### [facility] [address] [place], [place] #### LUPUS #### The performing lab is in the report. Folateon 11-05-2021 Folate 9.8 ng/mL Normal [facility] Comment on above: Result Comment: >2.8 Performed By: #### A PTT, TSH5, HEMDF, LDH3, DDI2, BMP3M, ESR, FOLT3, URIC3, FEIBC, FERR3, B12, FT4M #### [facility] [address] [place] [address] #### HVAAO, ANA3, HEPAN, B2GPG, B2GPM, B2GPA #### [facility] [address] [place], [place] #### LUPUS #### The performing lab is in the report. Free T4on 11-05-2021 Free T4 [Mass/Vol] 1.21 ng/dL Normal 0.78-2.19 [facility] Comment on above: Performed By: #### A PTT, TSH5, HEMDF, LDH3, DDI2, BMP3M, ESR, FOLT3, URIC3, FEIBC, FERR3, B12, FT4M ####[facility] [place] [address]#### HVAAO, ANA3, HEPAN, B2GPG, B2GPM, B2GPA ####[facility] [place], [place] #### LUPUS ####The performing lab is in the report. HIV Ag - Abon 11-05-2021 HIV 1,2 Combo Antigen/Antibody Non-Reactive Normal Non-Reactiv e [facility] Comment on above: Result Comment: The specimen was non-reactive for HIV-1 and HIV-2 antibodies and p24 antigen using an FDA-cleared 4th generation HIV test. Based on this non-reactive screen result, further reflexive testing was not indicated and was, therefore, not performed. Performed By: #### A PTT, TSH5, HEMDF, LDH3, DDI2, BMP3M, ESR, FOLT3, URIC3, FEIBC, FERR3, B12, FT4M ####[facility] [facility] [place] [address]#### HVAAO, ANA3, HEPAN, B2GPG, B2GPM, B2GPA ####[facility] [place], [place] #### LUPUS ####The performing lab is in the report. Hemogram w/ Autodiffon 11-05 Abs Baso Cnt 0.1 10*3/uL Normal 0.0-0.2 [facility] Comment on above: Performed By: #### A PTT, TSH5, HEMDF, LDH3, DDI2, BMP3M, ESR, FOLT3, URIC3, FEIBC, FERR3, B12, FT4M #### [facility] [address] [facility] [facility] [address] [place] [address] #### HVAAO, ANA3, HEPAN, B2GPG, B2GPM, B2GPA #### [facility] [address], [place] #### LUPUS #### The performing lab is in the report. Abs Neutrophile Cnt 5.4 10*3/uL Normal 1.8-7.0 [facility] Comment on above: Performed By: #### A PTT, TSH5, HEMDF, LDH3, DDI2, BMP3M, ESR, FOLT3, URIC3, FEIBC, FERR3, B12, FT4M #### [facility] [address] [facility] [place] [address] #### HVAAO, ANA3, HEPAN, B2GPG, B2GPM, B2GPA #### [address] #### LUPUS #### The performing lab is in the report. Basophils/100 WBC (Bld) 1.0 % Normal 0.0-2.0 [facility] Comment on above: Performed By: #### A PTT, TSH5, HEMDF, LDH3, DDI2, BMP3M, ESR, FOLT3, URIC3, FEIBC, FERR3, B12, FT4M #### [facility] [address] [place] #### HVAAO, ANA3, HEPAN, B2GPG, B2GPM, B2GPA #### [address] #### LUPUS #### The performing lab is in the report. Eosinophils (Bld) [#/Vol] 0.4 10*3/uL Normal 0.0-0.5 [facility] Comment on above: Performed By: #### A PTT, TSH5, HEMDF, LDH3, DDI2, BMP3M, ESR, FOLT3, URIC3, FEIBC, FERR3, B12, FT4M #### [address] [place] #### HVAAO, ANA3, HEPAN, B2GPG, B2GPM, B2GPA #### [address] #### LUPUS #### The performing lab is in the report. Eosinophils/100 WBC (Bld) 4.9 % Normal 1.0-6.0 [facility] Comment on above: Performed By: #### A PTT, TSH5, HEMDF, LDH3, DDI2, BMP3M, ESR, FOLT3, URIC3, FEIBC, FERR3, B12, FT4M #### [address] [place] #### HVAAO, ANA3, HEPAN, B2GPG, B2GPM, B2GPA #### [address] #### LUPUS #### The performing lab is in the report. Erythrocyte distribution width (RBC) [Ratio] 15.3 % High 11.5-14.5 [facility] Comment on above: Performed By: #### A PTT, TSH5, HEMDF, LDH3, DDI2, BMP3M, ESR, FOLT3, URIC3, FEIBC, FERR3, B12, FT4M #### [address] [place] #### HVAAO, ANA3, HEPAN, B2GPG, B2GPM, B2GPA #### [address] #### LUPUS #### The performing lab is in the report. Granulocytes/100 WBC (Bld) 60.5 % Normal 40.0-80.0 [facility] Comment on above: Performed By: #### A PTT, TSH5, HEMDF, LDH3, DDI2, BMP3M, ESR, FOLT3, URIC3, FEIBC, FERR3, B12, FT4M #### [facility] [address] [place] [address] #### HVAAO, ANA3, HEPAN, B2GPG, B2GPM, B2GPA #### [address] #### LUPUS #### The performing lab is in the report. Hematocrit (Bld) [Volume fraction] 41.4 % Normal 35.0-47.0 [facility] Comment on above: Performed By: #### A PTT, TSH5, HEMDF, LDH3, DDI2, BMP3M, ESR, FOLT3, URIC3, FEIBC, FERR3, B12, FT4M #### [facility] [address] [place] [address] #### HVAAO, ANA3, HEPAN, B2GPG, B2GPM, B2GPA #### [address] #### LUPUS #### The performing lab is in the report. Hemoglobin (Bld) [Mass/Vol] 13.8 g/dL Normal 11.7-16.0 [facility] Comment on above: Performed By: #### A PTT, TSH5, HEMDF, LDH3, DDI2, BMP3M, ESR, FOLT3, URIC3, FEIBC, FERR3, B12, FT4M #### [address] [place], [place] #### HVAAO, ANA3, HEPAN, B2GPG, B2GPM, B2GPA #### [address] #### LUPUS #### The performing lab is in the report. Lymphocytes (Bld) [#/Vol] 2.3 10*3/uL Normal 1.0-4.3 [facility] Comment on above: Performed By: #### A PTT, TSH5, HEMDF, LDH3, DDI2, BMP3M, ESR, FOLT3, URIC3, FEIBC, FERR3, B12, FT4M #### [facility] [address] [place] [address] #### HVAAO, ANA3, HEPAN, B2GPG, B2GPM, B2GPA #### [address] #### LUPUS #### The performing lab is in the report. Lymphocytes/100 WBC (Bld) 25.8 % Normal 20.0-40.0 [facility] Comment on above: Performed By: #### A PTT, TSH5, HEMDF, LDH3, DDI2, BMP3M, ESR, FOLT3, URIC3, FEIBC, FERR3, B12, FT4M #### [facility] [address] [place], [place] #### HVAAO, ANA3, HEPAN, B2GPG, B2GPM, B2GPA #### [address] #### LUPUS #### The performing lab is in the report. MCH (RBC) [Entitic mass] 30.6 pg Normal 26.0-34.0 [facility] Comment on above: Performed By: #### A PTT, TSH5, HEMDF, LDH3, DDI2, BMP3M, ESR, FOLT3, URIC3, FEIBC, FERR3, B12, FT4M #### [place] [address] [place] [address] #### HVAAO, ANA3, HEPAN, B2GPG, B2GPM, B2GPA #### [address] #### LUPUS #### The performing lab is in the report. MCHC 33.4 % Normal 32.0-36.0 [facility] Comment on above: Performed By: #### A PTT, TSH5, HEMDF, LDH3, DDI2, BMP3M, ESR, FOLT3, URIC3, FEIBC, FERR3, B12, FT4M #### [facility] [address] [place] [address] #### HVAAO, ANA3, HEPAN, B2GPG, B2GPM, B2GPA #### [address] #### LUPUS #### The performing lab is in the report. MCV (RBC) [Entitic vol] 91.7 fL Normal 79.0-98.0 [facility] Comment on above: Performed By: #### A PTT, TSH5, HEMDF, LDH3, DDI2, BMP3M, ESR, FOLT3, URIC3, FEIBC, FERR3, B12, FT4M #### [facility] [address] [place] [address] #### HVAAO, ANA3, HEPAN, B2GPG, B2GPM, B2GPA #### [address] #### LUPUS #### The performing lab is in the report. Monocytes (Bld) [#/Vol] 0.7 10*3/uL Normal 0.0-0.8 [facility] Comment on above: Performed By: #### A PTT, TSH5, HEMDF, LDH3, DDI2, BMP3M, ESR, FOLT3, URIC3, FEIBC, FERR3, B12, FT4M #### [place] [address] [place], [place] #### HVAAO, ANA3, HEPAN, B2GPG, B2GPM, B2GPA #### [address] #### LUPUS #### The performing lab is in the report. Monocytes/100 WBC (Bld) 7.8 % Normal 2.0-10.0 [facility] Comment on above: Performed By: #### A PTT, TSH5, HEMDF, LDH3, DDI2, BMP3M, ESR, FOLT3, URIC3, FEIBC, FERR3, B12, FT4M #### [facility] [address] [place] [address] #### HVAAO, ANA3, HEPAN, B2GPG, B2GPM, B2GPA #### [address] #### LUPUS #### The performing lab is in the report. Platelet mean volume (Bld) [Entitic vol] 9.0 fL Normal 7.4-10.4 [facility] Comment on above: Performed By: #### A PTT, TSH5, HEMDF, LDH3, DDI2, BMP3M, ESR, FOLT3, URIC3, FEIBC, FERR3, B12, FT4M #### [place] [address] [place] [address] #### HVAAO, ANA3, HEPAN, B2GPG, B2GPM, B2GPA #### [address] #### LUPUS #### The performing lab is in the report. Platelets (Bld) [#/Vol] 221 10*3/uL Normal 140-440 [facility] Comment on above: Performed By: #### A PTT, TSH5, HEMDF, LDH3, DDI2, BMP3M, ESR, FOLT3, URIC3, FEIBC, FERR3, B12, FT4M #### [address] [address] #### HVAAO, ANA3, HEPAN, B2GPG, B2GPM, B2GPA #### [address] #### LUPUS #### The performing lab is in the report. RBC (Bld) [#/Vol] 4.51 10*6/uL Normal 3.80-5.20 [facility] Comment on above: Performed By: #### A PTT, TSH5, HEMDF, LDH3, DDI2, BMP3M, ESR, FOLT3, URIC3, FEIBC, FERR3, B12, FT4M #### [facility] [address] [facility] [address] [place] [address] #### HVAAO, ANA3, HEPAN, B2GPG, B2GPM, B2GPA #### [address] #### LUPUS #### The performing lab is in the report. WBC (Bld) [#/Vol] 8.9 10*3/uL Normal 3.6-10.7 [facility] Comment on above: Performed By: #### A PTT, TSH5, HEMDF, LDH3, DDI2, BMP3M, ESR, FOLT3, URIC3, FEIBC, FERR3, B12, FT4M #### [address] [place] [address] #### HVAAO, ANA3, HEPAN, B2GPG, B2GPM, B2GPA #### [address] #### LUPUS #### The performing lab is in the report. Iron AND TIBCon 11-05-2021 Saturation 20 % Normal 15-50 [facility] Comment on above: Performed By: #### A PTT, TSH5, HEMDF, LDH3, DDI2, BMP3M, ESR, FOLT3, URIC3, FEIBC, FERR3, B12, FT4M ####[address] [place] [address]#### HVAAO, ANA3, HEPAN, B2GPG, B2GPM, B2GPA ####[address] #### LUPUS ####The performing lab is in the report. Total Iron Binding Cap. 296 ug/dL Normal 261-497 [facility] Comment on above: Performed By: #### A PTT, TSH5, HEMDF, LDH3, DDI2, BMP3M, ESR, FOLT3, URIC3, FEIBC, FERR3, B12, FT4M ####[facility] [place] [address]#### HVAAO, ANA3, HEPAN, B2GPG, B2GPM, B2GPA ####[place] [address] [place], [place] #### LUPUS ####The performing lab is in the report. Iron, Total 59 ug/dL Normal 37-170 [facility] Comment on above: Performed By: #### A PTT, TSH5, HEMDF, LDH3, DDI2, BMP3M, ESR, FOLT3, URIC3, FEIBC, FERR3, B12, FT4M ####[place] [address] [place] [address]#### HVAAO, ANA3, HEPAN, B2GPG, B2GPM, B2GPA ####[address] #### LUPUS ####The performing lab is in the report. LDHon 11-05-2021 LDH 259 U/L High 120-246 [facility] Comment on above: Performed By: #### A PTT, TSH5, HEMDF, LDH3, DDI2, BMP3M, ESR, FOLT3, URIC3, FEIBC, FERR3, B12, FT4M #### [facility] [address] [place] [address] #### HVAAO, ANA3, HEPAN, B2GPG, B2GPM, B2GPA #### [facility] [address], [place] #### LUPUS #### The performing lab is in the report. Sed Rateon 11-05-2021 Sed Rate 47 mm/h High 0-20 [facility] Comment on above: Performed By: #### A PTT, TSH5, HEMDF, LDH3, DDI2, BMP3M, ESR, FOLT3, URIC3, FEIBC, FERR3, B12, FT4M #### [facility] [address] [place] [address] #### HVAAO, ANA3, HEPAN, B2GPG, B2GPM, B2GPA #### [address] #### LUPUS #### The performing lab is in the report. Thyroid Stim. Hormoneon 10-23 Thyroid Stim. Hormone 3.596 u[IU]/mL Normal 0.465-4.68 0 [facility] Comment on above: Performed By: #### A PTT, TSH5, HEMDF, LDH3, DDI2, BMP3M, ESR, FOLT3, URIC3, FEIBC, FERR3, B12, FT4M #### [facility] [address] [facility] [address] [place] [address] #### HVAAO, ANA3, HEPAN, B2GPG, B2GPM, B2GPA #### [address] #### LUPUS #### The performing lab is in the report. Uric Acidon 11-05-2021 Urate [Mass/Vol] 7.3 mg/dL Normal 3.5-8.5 [facility] Comment on above: Performed By: #### A PTT, TSH5, HEMDF, LDH3, DDI2, BMP3M, ESR, FOLT3, URIC3, FEIBC, FERR3, B12, FT4M #### [facility] [address] [facility] [address] [place] [address] #### HVAAO, ANA3, HEPAN, B2GPG, B2GPM, B2GPA #### [address] #### LUPUS #### The performing lab is in the report. Vitamin B12on 11-05-2021 Cobalamin (Vitamin B12) [Mass/Vol] 228 pg/mL Low 239-931 [facility] Comment on above: Performed By: #### A PTT, TSH5, HEMDF, LDH3, DDI2, BMP3M, ESR, FOLT3, URIC3, FEIBC, FERR3, B12, FT4M ####[facility] [facility] [address] [place] [address]#### HVAAO, ANA3, HEPAN, B2GPG, B2GPM, B2GPA ####[facility] [place], [place] #### LUPUS ####The performing lab is in the report. APTTon 11-04-2021 aPTT Coag (Bld) [Time] 64.3 s High 20.0-30.5 [facility] Comment on above: Result Comment: NOTE : The therapeutic time for Heparin anticoagulation, based on Xa activity inhibition, is an APTT of 46-80 seconds. Performed By: #### A PTT #### [facility] [address] [place] [address] aPTT Coag (Bld) [Time] 61.1 s High 20.0-30.5 [facility] Comment on above: Result Comment: NOTE : The therapeutic time for Heparin anticoagulation, based on Xa activity inhibition, is an APTT of 46-80 seconds. Performed By: #### A PTT, TSH5, HEMDF, LDH3, DDI2, BMP3M, ESR, FOLT3, URIC3, FEIBC, FERR3, B12, FT4M #### [facility] [address] [place] [address] #### HVAAO, ANA3, HEPAN, B2GPG, B2GPM, B2GPA #### [facility] [address] [place], [place] #### LUPUS #### The performing lab is in the report. aPTT Coag (Bld) [Time] 132.8 s Critically high 20.0-30. 5 [facility] Comment on above: Result Comment: NOTE : The therapeutic time for Heparin anticoagulation, based on Xa activity inhibition, is an APTT of 46-80 seconds. Performed By: #### A PTT, TSH5, HEMDF, LDH3, DDI2, BMP3M, ESR, FOLT3, URIC3, FEIBC, FERR3, B12, FT4M #### [facility] [address] [place] [address] #### HVAAO, ANA3, HEPAN, B2GPG, B2GPM, B2GPA #### [place] [address] [place], [place] #### LUPUS #### The performing lab is in the report. aPTT Coag (Bld) [Time] 34.5 s High 20.0-30.5 [facility] Comment on above: Result Comment: NOTE : The therapeutic time for Heparin anticoagulation, based on Xa activity inhibition, is an APTT of 46-80 seconds. Performed By: #### A PTT, TSH5, HEMDF, LDH3, DDI2, BMP3M, ESR, FOLT3, URIC3, FEIBC, FERR3, B12, FT4M #### [place] [address] [place] [address] #### HVAAO, ANA3, HEPAN, B2GPG, B2GPM, B2GPA #### [address] #### LUPUS #### The performing lab is in the report. Basic Metabolic Panelon - Calcium [Mass/Vol] 9.1 mg/dL Normal 8.4-10.4 [facility] Comment on above: Performed By: #### A PTT, TSH5, HEMDF, LDH3, DDI2, BMP3M, ESR, FOLT3, URIC3, FEIBC, FERR3, B12, FT4M #### [place] [address] [place] [address] #### HVAAO, ANA3, HEPAN, B2GPG, B2GPM, B2GPA #### [address] #### LUPUS #### The performing lab is in the report. Glucose [Mass/Vol] 123 mg/dL High 70-100 [facility] Comment on above: Performed By: #### A PTT, TSH5, HEMDF, LDH3, DDI2, BMP3M, ESR, FOLT3, URIC3, FEIBC, FERR3, B12, FT4M #### [place] [address] [place] [address] #### HVAAO, ANA3, HEPAN, B2GPG, B2GPM, B2GPA #### [address], [place] #### LUPUS #### The performing lab is in the report. Urea nitrogen [Mass/Vol] 16 mg/dL Normal 9-20 [facility] Comment on above: Performed By: #### A PTT, TSH5, HEMDF, LDH3, DDI2, BMP3M, ESR, FOLT3, URIC3, FEIBC, FERR3, B12, FT4M #### [place] [address] [place] [address] #### HVAAO, ANA3, HEPAN, B2GPG, B2GPM, B2GPA #### [address] #### LUPUS #### The performing lab is in the report. Anion gap [Moles/Vol] 5 mmol/L Normal 3-13 [facility] Comment on above: Performed By: #### A PTT, TSH5, HEMDF, LDH3, DDI2, BMP3M, ESR, FOLT3, URIC3, FEIBC, FERR3, B12, FT4M #### [place] [address] [place] [address] #### HVAAO, ANA3, HEPAN, B2GPG, B2GPM, B2GPA #### [address] #### LUPUS #### The performing lab is in the report. CO2 [Moles/Vol] 25 mmol/L Normal 22-30 [facility] Comment on above: Performed By: #### A PTT, TSH5, HEMDF, LDH3, DDI2, BMP3M, ESR, FOLT3, URIC3, FEIBC, FERR3, B12, FT4M #### [address] [address] #### HVAAO, ANA3, HEPAN, B2GPG, B2GPM, B2GPA #### [address] #### LUPUS #### The performing lab is in the report. Creatinine [Mass/Vol] 0.94 mg/dL Normal 0.52-1.25 [facility] Comment on above: Performed By: #### A PTT, TSH5, HEMDF, LDH3, DDI2, BMP3M, ESR, FOLT3, URIC3, FEIBC, FERR3, B12, FT4M #### [facility] [address] [place] [address] #### HVAAO, ANA3, HEPAN, B2GPG, B2GPM, B2GPA #### [address] [id number] #### LUPUS #### The performing lab is in the report. GFR/1.73 sq M.predicted among blacks MDRD (S/P/Bld) [Vol rate/Area] 67.1 mL/min/{1.73_m2} Normal >60 [facility] Comment on above: Performed By: #### A PTT, TSH5, HEMDF, LDH3, DDI2, BMP3M, ESR, FOLT3, URIC3, FEIBC, FERR3, B12, FT4M #### [facility] [address] [place] [address] #### HVAAO, ANA3, HEPAN, B2GPG, B2GPM, B2GPA #### [address] [id number] #### LUPUS #### The performing lab is in the report. GFR/1.73 sq M.predicted among non-blacks MDRD (S/P/Bld) [Vol rate/Area] 57.9 mL/min/{1.73_m2} Abnormal >60 [facility] Comment on above: Result Comment: KDIG O [...] FOLT3, URIC3, FEIBC, FERR3, B12, FT4M #### [place] [address] [place] [address] #### HVAAO, ANA3, HEPAN, B2GPG, B2GPM, B2GPA #### [address] #### LUPUS #### The performing lab is in the report. Chloride [Moles/Vol] 106 mmol/L Normal 98-107 [facility] Comment on above: Performed By: #### A PTT, TSH5, HEMDF, LDH3, DDI2, BMP3M, ESR, FOLT3, URIC3, FEIBC, FERR3, B12, FT4M #### [address] [place] [address] #### HVAAO, ANA3, HEPAN, B2GPG, B2GPM, B2GPA #### [address] #### LUPUS #### The performing lab is in the report. Potassium [Moles/Vol] 3.6 mmol/L Normal 3.5-5.1 [facility] Comment on above: Performed By: #### A PTT, TSH5, HEMDF, LDH3, DDI2, BMP3M, ESR, FOLT3, URIC3, FEIBC, FERR3, B12, FT4M #### [address] [place] [address] #### HVAAO, ANA3, HEPAN, B2GPG, B2GPM, B2GPA #### [address] #### LUPUS #### The performing lab is in the report. Sodium [Moles/Vol] 135 mmol/L Normal 135-145 [facility] Comment on above: Performed By: #### A PTT, TSH5, HEMDF, LDH3, DDI2, BMP3M, ESR, FOLT3, URIC3, FEIBC, FERR3, B12, FT4M #### [facility] [address] [place] [address] #### HVAAO, ANA3, HEPAN, B2GPG, B2GPM, B2GPA #### [facility] [address] [place] [address] #### LUPUS #### The performing lab is in the report. Echo Complete w/wo Contrasto n 11-04-2021 Echo Complete w/wo Contrast Patient Name: CHAY TEAGUE Ultrasound ACCESSION EXAM DATE/TIME PROCEDURE ORDERING PROVIDER [id number] 11/04/2021 11:49 EST Echo Complete w/wo MD LEBRON PRAMOD Contrast Reason For Exam (Echo Complete w/wo Contrast) DVT, chest pain Report TRANSTHORACIC ECHOCARDIOGRAM PATIENT: Chay Teague STUDY DATE: 11/04/2021 : 1945 AGE: 76 HT/WT: 160 cm (63 88.5 kg in) (194.6 lb) GENDER: F BP: 142 / 87 LOCATION: [facility] PATIENT [facility] STATUS: *ORDERING PHYSICIAN: * Cain Lebron *READING PHYSICIAN: * Jayden Muñoz *ORNAMENTAL METAL WORKER HELPER: * Iliana Real MD RDCS,AE, PE, RVT [...] volume (SV) (more content not included)... Normal [facility] Hemogram w/ Autodiffon 11-04 Abs Baso Cnt 0.1 10*3/uL Normal 0.0-0.2 [facility] Comment on above: Performed By: #### A PTT, TSH5, HEMDF, LDH3, DDI2, BMP3M, ESR, FOLT3, URIC3, FEIBC, FERR3, B12, FT4M #### [facility] [address] [place] [address] #### HVAAO, ANA3, HEPAN, B2GPG, B2GPM, B2GPA #### [facility] [address] [place] [address] #### LUPUS #### The performing lab is in the report. Abs Neutrophile Cnt 7.2 10*3/uL High 1.8-7.0 [facility] Comment on above: Performed By: #### A PTT, TSH5, HEMDF, LDH3, DDI2, BMP3M, ESR, FOLT3, URIC3, FEIBC, FERR3, B12, FT4M #### [facility] [address] [place] [address] #### HVAAO, ANA3, HEPAN, B2GPG, B2GPM, B2GPA #### [address] [address] #### LUPUS #### The performing lab is in the report. Basophils/100 WBC (Bld) 0.8 % Normal 0.0-2.0 [facility] Comment on above: Performed By: #### A PTT, TSH5, HEMDF, LDH3, DDI2, BMP3M, ESR, FOLT3, URIC3, FEIBC, FERR3, B12, FT4M #### [place] [address] [place] [address] #### HVAAO, ANA3, HEPAN, B2GPG, B2GPM, B2GPA #### [address] [address] #### LUPUS #### The performing lab is in the report. Eosinophils (Bld) [#/Vol] 0.5 10*3/uL Normal 0.0-0.5 [facility] Comment on above: Performed By: #### A PTT, TSH5, HEMDF, LDH3, DDI2, BMP3M, ESR, FOLT3, URIC3, FEIBC, FERR3, B12, FT4M #### [place] [address] [place] [address] #### HVAAO, ANA3, HEPAN, B2GPG, B2GPM, B2GPA #### [address] [address] #### LUPUS #### The performing lab is in the report. Eosinophils/100 WBC (Bld) 4.7 % Normal 1.0-6.0 [facility] Comment on above: Performed By: #### A PTT, TSH5, HEMDF, LDH3, DDI2, BMP3M, ESR, FOLT3, URIC3, FEIBC, FERR3, B12, FT4M #### [address] [place] [address] #### HVAAO, ANA3, HEPAN, B2GPG, B2GPM, B2GPA #### [address] #### LUPUS #### The performing lab is in the report. Erythrocyte distribution width (RBC) [Ratio] 15.0 % High 11.5-14.5 [facility] Comment on above: Performed By: #### A PTT, TSH5, HEMDF, LDH3, DDI2, BMP3M, ESR, FOLT3, URIC3, FEIBC, FERR3, B12, FT4M #### [address] [place] #### HVAAO, ANA3, HEPAN, B2GPG, B2GPM, B2GPA #### [address] #### LUPUS #### The performing lab is in the report. Granulocytes/100 WBC (Bld) 64.0 % Normal 40.0-80.0 [facility] Comment on above: Performed By: #### A PTT, TSH5, HEMDF, LDH3, DDI2, BMP3M, ESR, FOLT3, URIC3, FEIBC, FERR3, B12, FT4M #### [address] [place] #### HVAAO, ANA3, HEPAN, B2GPG, B2GPM, B2GPA #### [address] #### LUPUS #### The performing lab is in the report. Hematocrit (Bld) [Volume fraction] 40.2 % Normal 35.0-47.0 [facility] Comment on above: Performed By: #### A PTT, TSH5, HEMDF, LDH3, DDI2, BMP3M, ESR, FOLT3, URIC3, FEIBC, FERR3, B12, FT4M #### [place] [address] [place] [address] #### HVAAO, ANA3, HEPAN, B2GPG, B2GPM, B2GPA #### [address] #### LUPUS #### The performing lab is in the report. Hemoglobin (Bld) [Mass/Vol] 13.2 g/dL Normal 11.7-16.0 [facility] Comment on above: Performed By: #### A PTT, TSH5, HEMDF, LDH3, DDI2, BMP3M, ESR, FOLT3, URIC3, FEIBC, FERR3, B12, FT4M #### [address] [place] #### HVAAO, ANA3, HEPAN, B2GPG, B2GPM, B2GPA #### [address] #### LUPUS #### The performing lab is in the report. Lymphocytes (Bld) [#/Vol] 2.5 10*3/uL Normal 1.0-4.3 [facility] Comment on above: Performed By: #### A PTT, TSH5, HEMDF, LDH3, DDI2, BMP3M, ESR, FOLT3, URIC3, FEIBC, FERR3, B12, FT4M #### [address] [place] #### HVAAO, ANA3, HEPAN, B2GPG, B2GPM, B2GPA #### [address] #### LUPUS #### The performing lab is in the report. Lymphocytes/100 WBC (Bld) 22.3 % Normal 20.0-40.0 [facility] Comment on above: Performed By: #### A PTT, TSH5, HEMDF, LDH3, DDI2, BMP3M, ESR, FOLT3, URIC3, FEIBC, FERR3, B12, FT4M #### [facility] [address] [place] [address] #### HVAAO, ANA3, HEPAN, B2GPG, B2GPM, B2GPA #### [address] #### LUPUS #### The performing lab is in the report. MCH (RBC) [Entitic mass] 30.3 pg Normal 26.0-34.0 [facility] Comment on above: Performed By: #### A PTT, TSH5, HEMDF, LDH3, DDI2, BMP3M, ESR, FOLT3, URIC3, FEIBC, FERR3, B12, FT4M #### [place] [address] [place] [id number] #### HVAAO, ANA3, HEPAN, B2GPG, B2GPM, B2GPA #### [address] #### LUPUS #### The performing lab is in the report. MCHC 32.9 % Normal 32.0-36.0 [facility] Comment on above: Performed By: #### A PTT, TSH5, HEMDF, LDH3, DDI2, BMP3M, ESR, FOLT3, URIC3, FEIBC, FERR3, B12, FT4M #### [place] [address] [place] [id number] #### HVAAO, ANA3, HEPAN, B2GPG, B2GPM, B2GPA #### [address] #### LUPUS #### The performing lab is in the report. MCV (RBC) [Entitic vol] 92.0 fL Normal 79.0-98.0 [facility] Comment on above: Performed By: #### A PTT, TSH5, HEMDF, LDH3, DDI2, BMP3M, ESR, FOLT3, URIC3, FEIBC, FERR3, B12, FT4M #### [place] [address] [place] [address] #### HVAAO, ANA3, HEPAN, B2GPG, B2GPM, B2GPA #### [address] #### LUPUS #### The performing lab is in the report. Monocytes (Bld) [#/Vol] 0.9 10*3/uL High 0.0-0.8 [facility] Comment on above: Performed By: #### A PTT, TSH5, HEMDF, LDH3, DDI2, BMP3M, ESR, FOLT3, URIC3, FEIBC, FERR3, B12, FT4M #### [address] [place] [address] #### HVAAO, ANA3, HEPAN, B2GPG, B2GPM, B2GPA #### [address] #### LUPUS #### The performing lab is in the report. Monocytes/100 WBC (Bld) 8.2 % Normal 2.0-10.0 [facility] Comment on above: Performed By: #### A PTT, TSH5, HEMDF, LDH3, DDI2, BMP3M, ESR, FOLT3, URIC3, FEIBC, FERR3, B12, FT4M #### [address] [place] #### HVAAO, ANA3, HEPAN, B2GPG, B2GPM, B2GPA #### [address] #### LUPUS #### The performing lab is in the report. Platelet mean volume (Bld) [Entitic vol] 9.0 fL Normal 7.4-10.4 [facility] Comment on above: Performed By: #### A PTT, TSH5, HEMDF, LDH3, DDI2, BMP3M, ESR, FOLT3, URIC3, FEIBC, FERR3, B12, FT4M #### [address] [place] [address] #### HVAAO, ANA3, HEPAN, B2GPG, B2GPM, B2GPA #### [address] #### LUPUS #### The performing lab is in the report. Platelets (Bld) [#/Vol] 208 10*3/uL Normal 140-440 [facility] Comment on above: Performed By: #### A PTT, TSH5, HEMDF, LDH3, DDI2, BMP3M, ESR, FOLT3, URIC3, FEIBC, FERR3, B12, FT4M #### [facility] [address] [place] [address] #### HVAAO, ANA3, HEPAN, B2GPG, B2GPM, B2GPA #### [address] #### LUPUS #### The performing lab is in the report. RBC (Bld) [#/Vol] 4.37 10*6/uL Normal 3.80-5.20 [facility] Comment on above: Performed By: #### A PTT, TSH5, HEMDF, LDH3, DDI2, BMP3M, ESR, FOLT3, URIC3, FEIBC, FERR3, B12, FT4M #### [facility] [address] [place] [address] #### HVAAO, ANA3, HEPAN, B2GPG, B2GPM, B2GPA #### [address] #### LUPUS #### The performing lab is in the report. WBC (Bld) [#/Vol] 11.2 10*3/uL High 3.6-10.7 [facility] Comment on above: Performed By: #### A PTT, TSH5, HEMDF, LDH3, DDI2, BMP3M, ESR, FOLT3, URIC3, FEIBC, FERR3, B12, FT4M #### [facility] [address] [place] [address] #### HVAAO, ANA3, HEPAN, B2GPG, B2GPM, B2GPA #### [address] #### LUPUS #### The performing lab is in the report. APTTon 11-03-2021 aPTT Coag (Bld) [Time] 42.0 s High 20.0-30.5 [facility] Comment on above: Result Comment: NOTE : The therapeutic time for Heparin anticoagulation, based on Xa activity inhibition, is an APTT of 46-80 seconds. Performed By: #### A PTT, TSH5, HEMDF, LDH3, DDI2, BMP3M, ESR, FOLT3, URIC3, FEIBC, FERR3, B12, FT4M #### [facility] [address] [place] [address] #### HVAAO, ANA3, HEPAN, B2GPG, B2GPM, B2GPA #### [address] #### LUPUS #### The performing lab is in the report. aPTT Coag (Bld) [Time] 51.5 s High 20.0-30.5 [facility] Comment on above: Result Comment: NOTE : The therapeutic time for Heparin anticoagulation, based on Xa activity inhibition, is an APTT of 46-80 seconds. Performed By: #### A PTT, TSH5, HEMDF, LDH3, DDI2, BMP3M, ESR, FOLT3, URIC3, FEIBC, FERR3, B12, FT4M #### [place] [address] [place] [address] #### HVAAO, ANA3, HEPAN, B2GPG, B2GPM, B2GPA #### [address] #### LUPUS #### The performing lab is in the report. aPTT Coag (Bld) [Time] 106.9 s High 20.0-30.5 [facility] Comment on above: Result Comment: NOTE : The therapeutic time for Heparin anticoagulation, based on Xa activity inhibition, is an APTT of 46-80 seconds. Performed By: #### A PTT, TSH5, HEMDF, LDH3, DDI2, BMP3M, ESR, FOLT3, URIC3, FEIBC, FERR3, B12, FT4M #### [facility] [address] [place] [address] #### HVAAO, ANA3, HEPAN, B2GPG, B2GPM, B2GPA #### [facility] [address] [place] [address] #### LUPUS #### The performing lab is in the report. CT Head or Brain w/o Contras ton 11-03-2021 CT Head or Brain w/o Contrast Patient Name: CHAY TEAGUE Computed Tomography ACCESSION EXAM DATE/TIME PROCEDURE ORDERING PROVIDER [id number] 11/03/2021 15:[address] Head or Brain w/o MD CANDY, FCO Contrast CPT code 45462 Reason For Exam (CT Head or Brain [...] Transcribed Date and Time: 11/03/2021 3:31 Normal [facility] Comp Panel with Mg Reflexon 11-03-2021 Calcium [Mass/Vol] 8.9 mg/dL Normal 8.4-10.4 [facility] Comment on above: Performed By: #### A PTT, TSH5, HEMDF, LDH3, DDI2, BMP3M, ESR, FOLT3, URIC3, FEIBC, FERR3, B12, FT4M #### [facility] [address] [place] [address] #### HVAAO, ANA3, HEPAN, B2GPG, B2GPM, B2GPA #### [address] #### LUPUS #### The performing lab is in the report. ALP [Catalytic activity/Vol] 113 U/L Normal 38-126 [facility] Comment on above: Performed By: #### A PTT, TSH5, HEMDF, LDH3, DDI2, BMP3M, ESR, FOLT3, URIC3, FEIBC, FERR3, B12, FT4M #### [place] [address] [place] #### HVAAO, ANA3, HEPAN, B2GPG, B2GPM, B2GPA #### [address] #### LUPUS #### The performing lab is in the report. ALT [Catalytic activity/Vol] 15 U/L Normal 0-34 [facility] Comment on above: Result Comment: The ALT test is performed by an updated assay method. Please note that the reference intervals have been changed and are now sex specific. Performed By: #### A PTT, TSH5, HEMDF, LDH3, DDI2, BMP3M, ESR, FOLT3, URIC3, FEIBC, FERR3, B12, FT4M #### [place] [address] [place] [address] #### HVAAO, ANA3, HEPAN, B2GPG, B2GPM, B2GPA #### [address] #### LUPUS #### The performing lab is in the report. Anion gap [Moles/Vol] 9 mmol/L Normal 3-13 [facility] Comment on above: Performed By: #### A PTT, TSH5, HEMDF, LDH3, DDI2, BMP3M, ESR, FOLT3, URIC3, FEIBC, FERR3, B12, FT4M #### [facility] [address] [place] [address] #### HVAAO, ANA3, HEPAN, B2GPG, B2GPM, B2GPA #### [address] #### LUPUS #### The performing lab is in the report. AST [Catalytic activity/Vol] 26 U/L Normal 15-46 [facility] Comment on above: Performed By: #### A PTT, TSH5, HEMDF, LDH3, DDI2, BMP3M, ESR, FOLT3, URIC3, FEIBC, FERR3, B12, FT4M #### [address] [place] [address] #### HVAAO, ANA3, HEPAN, B2GPG, B2GPM, B2GPA #### [address] #### LUPUS #### The performing lab is in the report. Bilirubin [Mass/Vol] 0.8 mg/dL Normal 0.2-1.3 [facility] Comment on above: Performed By: #### A PTT, TSH5, HEMDF, LDH3, DDI2, BMP3M, ESR, FOLT3, URIC3, FEIBC, FERR3, B12, FT4M #### [place] [address] [place] [address] #### HVAAO, ANA3, HEPAN, B2GPG, B2GPM, B2GPA #### [address] #### LUPUS #### The performing lab is in the report. CO2 [Moles/Vol] 23 mmol/L Normal 22-30 [facility] Comment on above: Performed By: #### A PTT, TSH5, HEMDF, LDH3, DDI2, BMP3M, ESR, FOLT3, URIC3, FEIBC, FERR3, B12, FT4M #### [place] [address] [place] [address] #### HVAAO, ANA3, HEPAN, B2GPG, B2GPM, B2GPA #### [address] #### LUPUS #### The performing lab is in the report. Glucose [Mass/Vol] 112 mg/dL High 70-100 [facility] Comment on above: Performed By: #### A PTT, TSH5, HEMDF, LDH3, DDI2, BMP3M, ESR, FOLT3, URIC3, FEIBC, FERR3, B12, FT4M #### [facility] [address] [place] #### HVAAO, ANA3, HEPAN, B2GPG, B2GPM, B2GPA #### [address] #### LUPUS #### The performing lab is in the report. Protein [Mass/Vol] 7.2 g/dL Normal 6.3-8.2 [facility] Comment on above: Performed By: #### A PTT, TSH5, HEMDF, LDH3, DDI2, BMP3M, ESR, FOLT3, URIC3, FEIBC, FERR3, B12, FT4M #### [facility] [address] [place] #### HVAAO, ANA3, HEPAN, B2GPG, B2GPM, B2GPA #### [address] #### LUPUS #### The performing lab is in the report. Urea nitrogen [Mass/Vol] 22 mg/dL High 9-20 [facility] Comment on above: Performed By: #### A PTT, TSH5, HEMDF, LDH3, DDI2, BMP3M, ESR, FOLT3, URIC3, FEIBC, FERR3, B12, FT4M #### [place] [address] [place] #### HVAAO, ANA3, HEPAN, B2GPG, B2GPM, B2GPA #### [address] #### LUPUS #### The performing lab is in the report. Creatinine [Mass/Vol] 1.13 mg/dL Normal 0.52-1.25 [facility] Comment on above: Performed By: #### A PTT, TSH5, HEMDF, LDH3, DDI2, BMP3M, ESR, FOLT3, URIC3, FEIBC, FERR3, B12, FT4M #### [address] [place] [address] #### HVAAO, ANA3, HEPAN, B2GPG, B2GPM, B2GPA #### [address] #### LUPUS #### The performing lab is in the report. GFR/1.73 sq M.predicted among blacks MDRD (S/P/Bld) [Vol rate/Area] 53.7 mL/min/{1.73_m2} Abnormal >60 [facility] Comment on above: Performed By: #### A PTT, TSH5, HEMDF, LDH3, DDI2, BMP3M, ESR, FOLT3, URIC3, FEIBC, FERR3, B12, FT4M #### [address] [place] [address] #### HVAAO, ANA3, HEPAN, B2GPG, B2GPM, B2GPA #### [address] #### LUPUS #### The performing lab is in the report. GFR/1.73 sq M.predicted among non-blacks MDRD (S/P/Bld) [Vol rate/Area] 46.3 mL/min/{1.73_m2} Abnormal >60 [facility] Comment on above: Result Comment: KDIG O [...] URIC3, FEIBC, FERR3, B12, FT4M #### [facility] [address] [place] [address] #### HVAAO, ANA3, HEPAN, B2GPG, B2GPM, B2GPA #### [address] [phone] #### LUPUS #### The performing lab is in the report. Albumin [Mass/Vol] 3.8 g/dL Normal 3.5-5.0 [facility] Comment on above: Performed By: #### A PTT, TSH5, HEMDF, LDH3, DDI2, BMP3M, ESR, FOLT3, URIC3, FEIBC, FERR3, B12, FT4M #### [facility] [address] [place] [address] #### HVAAO, ANA3, HEPAN, B2GPG, B2GPM, B2GPA #### [address] [phone] #### LUPUS #### The performing lab is in the report. Chloride [Moles/Vol] 104 mmol/L Normal 98-107 [facility] Comment on above: Performed By: #### A PTT, TSH5, HEMDF, LDH3, DDI2, BMP3M, ESR, FOLT3, URIC3, FEIBC, FERR3, B12, FT4M #### [facility] [address] [place] [address] #### HVAAO, ANA3, HEPAN, B2GPG, B2GPM, B2GPA #### [place] [address] [place], [place] #### LUPUS #### The performing lab is in the report. Potassium [Moles/Vol] 3.2 mmol/L Low 3.5-5.1 [facility] Comment on above: Performed By: #### A PTT, TSH5, HEMDF, LDH3, DDI2, BMP3M, ESR, FOLT3, URIC3, FEIBC, FERR3, B12, FT4M #### [facility] [address] [place] [address] #### HVAAO, ANA3, HEPAN, B2GPG, B2GPM, B2GPA #### [address] #### LUPUS #### The performing lab is in the report. Sodium [Moles/Vol] 136 mmol/L Normal 135-145 [facility] Comment on above: Performed By: #### A PTT, TSH5, HEMDF, LDH3, DDI2, BMP3M, ESR, FOLT3, URIC3, FEIBC, FERR3, B12, FT4M #### [facility] [address] [place] [address] #### HVAAO, ANA3, HEPAN, B2GPG, B2GPM, B2GPA #### [address] #### LUPUS #### The performing lab is in the report. Glucose,Bedsideon 11-03-2021 Glucose [Mass/Vol] 117 mg/dL High 70-100 [facility] Comment on above: Result Comment: Test performed by glucose meter. Results may be 10%-15% lower than serum/plasma values. (CLIA ID [id number]) Performed By: #### A PTT, TSH5, HEMDF, LDH3, DDI2, BMP3M, ESR, FOLT3, URIC3, FEIBC, FERR3, B12, FT4M #### [facility] [address] [place] [address] #### HVAAO, ANA3, HEPAN, B2GPG, B2GPM, B2GPA #### [address] #### LUPUS #### The performing lab is in the report. Hemogramon 11-03-2021 Erythrocyte distribution width (RBC) [Ratio] 14.9 % High 11.5-14.5 [facility] Comment on above: Performed By: #### A PTT, TSH5, HEMDF, LDH3, DDI2, BMP3M, ESR, FOLT3, URIC3, FEIBC, FERR3, B12, FT4M #### [facility] [address] [place] [address] #### HVAAO, ANA3, HEPAN, B2GPG, B2GPM, B2GPA #### [address] #### LUPUS #### The performing lab is in the report. Hematocrit (Bld) [Volume fraction] 41.6 % Normal 35.0-47.0 [facility] Comment on above: Performed By: #### A PTT, TSH5, HEMDF, LDH3, DDI2, BMP3M, ESR, FOLT3, URIC3, FEIBC, FERR3, B12, FT4M #### [facility] [address] [place] [address] #### HVAAO, ANA3, HEPAN, B2GPG, B2GPM, B2GPA #### [address] #### LUPUS #### The performing lab is in the report. Hemoglobin (Bld) [Mass/Vol] 14.1 g/dL Normal 11.7-16.0 [facility] Comment on above: Performed By: #### A PTT, TSH5, HEMDF, LDH3, DDI2, BMP3M, ESR, FOLT3, URIC3, FEIBC, FERR3, B12, FT4M #### [facility] [address] [place] [address] #### HVAAO, ANA3, HEPAN, B2GPG, B2GPM, B2GPA #### [address] #### LUPUS #### The performing lab is in the report. MCH (RBC) [Entitic mass] 30.7 pg Normal 26.0-34.0 [facility] Comment on above: Performed By: #### A PTT, TSH5, HEMDF, LDH3, DDI2, BMP3M, ESR, FOLT3, URIC3, FEIBC, FERR3, B12, FT4M #### [facility] [address] [place] [address] #### HVAAO, ANA3, HEPAN, B2GPG, B2GPM, B2GPA #### [address] #### LUPUS #### The performing lab is in the report. MCHC 34.0 % Normal 32.0-36.0 [facility] Comment on above: Performed By: #### A PTT, TSH5, HEMDF, LDH3, DDI2, BMP3M, ESR, FOLT3, URIC3, FEIBC, FERR3, B12, FT4M #### [place] [address] [place] [address] #### HVAAO, ANA3, HEPAN, B2GPG, B2GPM, B2GPA #### [address] #### LUPUS #### The performing lab is in the report. MCV (RBC) [Entitic vol] 90.3 fL Normal 79.0-98.0 [facility] Comment on above: Performed By: #### A PTT, TSH5, HEMDF, LDH3, DDI2, BMP3M, ESR, FOLT3, URIC3, FEIBC, FERR3, B12, FT4M #### [facility] [address] [place] [address] #### HVAAO, ANA3, HEPAN, B2GPG, B2GPM, B2GPA #### [address] #### LUPUS #### The performing lab is in the report. Platelet mean volume (Bld) [Entitic vol] 8.8 fL Normal 7.4-10.4 [facility] Comment on above: Performed By: #### A PTT, TSH5, HEMDF, LDH3, DDI2, BMP3M, ESR, FOLT3, URIC3, FEIBC, FERR3, B12, FT4M #### [facility] [address] [place] [address] #### HVAAO, ANA3, HEPAN, B2GPG, B2GPM, B2GPA #### [address] #### LUPUS #### The performing lab is in the report. Platelets (Bld) [#/Vol] 185 10*3/uL Normal 140-440 [facility] Comment on above: Performed By: #### A PTT, TSH5, HEMDF, LDH3, DDI2, BMP3M, ESR, FOLT3, URIC3, FEIBC, FERR3, B12, FT4M #### [facility] [address] [place] [address] #### HVAAO, ANA3, HEPAN, B2GPG, B2GPM, B2GPA #### [address] #### LUPUS #### The performing lab is in the report. RBC (Bld) [#/Vol] 4.61 10*6/uL Normal 3.80-5.20 [facility] Comment on above: Performed By: #### A PTT, TSH5, HEMDF, LDH3, DDI2, BMP3M, ESR, FOLT3, URIC3, FEIBC, FERR3, B12, FT4M #### [facility] [address] [place] [address] #### HVAAO, ANA3, HEPAN, B2GPG, B2GPM, B2GPA #### [address] #### LUPUS #### The performing lab is in the report. WBC (Bld) [#/Vol] 9.3 10*3/uL Normal 3.6-10.7 [facility] Comment on above: Performed By: #### A PTT, TSH5, HEMDF, LDH3, DDI2, BMP3M, ESR, FOLT3, URIC3, FEIBC, FERR3, B12, FT4M #### [facility] [address] [place] [address] #### HVAAO, ANA3, HEPAN, B2GPG, B2GPM, B2GPA #### [address] #### LUPUS #### The performing lab is in the report. Hemogram w/ Autodiffon 11-03 Abs Baso Cnt 0.0 10*3/uL Normal 0.0-0.2 [facility] Comment on above: Performed By: #### A PTT, TSH5, HEMDF, LDH3, DDI2, BMP3M, ESR, FOLT3, URIC3, FEIBC, FERR3, B12, FT4M #### [address] [place] [address] #### HVAAO, ANA3, HEPAN, B2GPG, B2GPM, B2GPA #### [address] #### LUPUS #### The performing lab is in the report. Abs Neutrophile Cnt 6.5 10*3/uL Normal 1.8-7.0 [facility] Comment on above: Performed By: #### A PTT, TSH5, HEMDF, LDH3, DDI2, BMP3M, ESR, FOLT3, URIC3, FEIBC, FERR3, B12, FT4M #### [address] [place] [address] #### HVAAO, ANA3, HEPAN, B2GPG, B2GPM, B2GPA #### [address] #### LUPUS #### The performing lab is in the report. Basophils/100 WBC (Bld) 0.4 % Normal 0.0-2.0 [facility] Comment on above: Performed By: #### A PTT, TSH5, HEMDF, LDH3, DDI2, BMP3M, ESR, FOLT3, URIC3, FEIBC, FERR3, B12, FT4M #### [place] [address] [place] [address] #### HVAAO, ANA3, HEPAN, B2GPG, B2GPM, B2GPA #### [address] #### LUPUS #### The performing lab is in the report. Eosinophils (Bld) [#/Vol] 0.4 10*3/uL Normal 0.0-0.5 [facility] Comment on above: Performed By: #### A PTT, TSH5, HEMDF, LDH3, DDI2, BMP3M, ESR, FOLT3, URIC3, FEIBC, FERR3, B12, FT4M #### [address] [place], [place] #### HVAAO, ANA3, HEPAN, B2GPG, B2GPM, B2GPA #### [address] #### LUPUS #### The performing lab is in the report. Eosinophils/100 WBC (Bld) 4.0 % Normal 1.0-6.0 [facility] Comment on above: Performed By: #### A PTT, TSH5, HEMDF, LDH3, DDI2, BMP3M, ESR, FOLT3, URIC3, FEIBC, FERR3, B12, FT4M #### [address] [place], [place] #### HVAAO, ANA3, HEPAN, B2GPG, B2GPM, B2GPA #### [address] #### LUPUS #### The performing lab is in the report. Erythrocyte distribution width (RBC) [Ratio] 14.9 % High 11.5-14.5 [facility] Comment on above: Performed By: #### A PTT, TSH5, HEMDF, LDH3, DDI2, BMP3M, ESR, FOLT3, URIC3, FEIBC, FERR3, B12, FT4M #### [facility] [address] [place] [address] #### HVAAO, ANA3, HEPAN, B2GPG, B2GPM, B2GPA #### [address] #### LUPUS #### The performing lab is in the report. Granulocytes/100 WBC (Bld) 65.5 % Normal 40.0-80.0 [facility] Comment on above: Performed By: #### A PTT, TSH5, HEMDF, LDH3, DDI2, BMP3M, ESR, FOLT3, URIC3, FEIBC, FERR3, B12, FT4M #### [address] [place] #### HVAAO, ANA3, HEPAN, B2GPG, B2GPM, B2GPA #### [address] #### LUPUS #### The performing lab is in the report. Hematocrit (Bld) [Volume fraction] 43.4 % Normal 35.0-47.0 [facility] Comment on above: Performed By: #### A PTT, TSH5, HEMDF, LDH3, DDI2, BMP3M, ESR, FOLT3, URIC3, FEIBC, FERR3, B12, FT4M #### [address] [place] #### HVAAO, ANA3, HEPAN, B2GPG, B2GPM, B2GPA #### [address] #### LUPUS #### The performing lab is in the report. Hemoglobin (Bld) [Mass/Vol] 14.6 g/dL Normal 11.7-16.0 [facility] Comment on above: Performed By: #### A PTT, TSH5, HEMDF, LDH3, DDI2, BMP3M, ESR, FOLT3, URIC3, FEIBC, FERR3, B12, FT4M #### [address] [place] [address] #### HVAAO, ANA3, HEPAN, B2GPG, B2GPM, B2GPA #### [address] #### LUPUS #### The performing lab is in the report. Lymphocytes (Bld) [#/Vol] 2.2 10*3/uL Normal 1.0-4.3 [facility] Comment on above: Performed By: #### A PTT, TSH5, HEMDF, LDH3, DDI2, BMP3M, ESR, FOLT3, URIC3, FEIBC, FERR3, B12, FT4M #### [address] [facility] [place] #### HVAAO, ANA3, HEPAN, B2GPG, B2GPM, B2GPA #### [address] #### LUPUS #### The performing lab is in the report. Lymphocytes/100 WBC (Bld) 22.4 % Normal 20.0-40.0 [facility] Comment on above: Performed By: #### A PTT, TSH5, HEMDF, LDH3, DDI2, BMP3M, ESR, FOLT3, URIC3, FEIBC, FERR3, B12, FT4M #### [address] [facility] [place] [place] #### HVAAO, ANA3, HEPAN, B2GPG, B2GPM, B2GPA #### [address] #### LUPUS #### The performing lab is in the report. MCH (RBC) [Entitic mass] 30.8 pg Normal 26.0-34.0 [facility] Comment on above: Performed By: #### A PTT, TSH5, HEMDF, LDH3, DDI2, BMP3M, ESR, FOLT3, URIC3, FEIBC, FERR3, B12, FT4M #### [address] [facility] [place] [place] #### HVAAO, ANA3, HEPAN, B2GPG, B2GPM, B2GPA #### [address] #### LUPUS #### The performing lab is in the report. MCHC 33.6 % Normal 32.0-36.0 [facility] Comment on above: Performed By: #### A PTT, TSH5, HEMDF, LDH3, DDI2, BMP3M, ESR, FOLT3, URIC3, FEIBC, FERR3, B12, FT4M #### [facility] [address] [place] [address] #### HVAAO, ANA3, HEPAN, B2GPG, B2GPM, B2GPA #### [address] #### LUPUS #### The performing lab is in the report. MCV (RBC) [Entitic vol] 91.5 fL Normal 79.0-98.0 [facility] Comment on above: Performed By: #### A PTT, TSH5, HEMDF, LDH3, DDI2, BMP3M, ESR, FOLT3, URIC3, FEIBC, FERR3, B12, FT4M #### [facility] [address] [place] [address] #### HVAAO, ANA3, HEPAN, B2GPG, B2GPM, B2GPA #### [address] #### LUPUS #### The performing lab is in the report. Monocytes (Bld) [#/Vol] 0.8 10*3/uL Normal 0.0-0.8 [facility] Comment on above: Performed By: #### A PTT, TSH5, HEMDF, LDH3, DDI2, BMP3M, ESR, FOLT3, URIC3, FEIBC, FERR3, B12, FT4M #### [facility] [address] [place] [address] #### HVAAO, ANA3, HEPAN, B2GPG, B2GPM, B2GPA #### [address] #### LUPUS #### The performing lab is in the report. Monocytes/100 WBC (Bld) 7.7 % Normal 2.0-10.0 [facility] Comment on above: Performed By: #### A PTT, TSH5, HEMDF, LDH3, DDI2, BMP3M, ESR, FOLT3, URIC3, FEIBC, FERR3, B12, FT4M #### [facility] [address] [place] [address] #### HVAAO, ANA3, HEPAN, B2GPG, B2GPM, B2GPA #### [address] #### LUPUS #### The performing lab is in the report. Platelet mean volume (Bld) [Entitic vol] 9.2 fL Normal 7.4-10.4 [facility] Comment on above: Performed By: #### A PTT, TSH5, HEMDF, LDH3, DDI2, BMP3M, ESR, FOLT3, URIC3, FEIBC, FERR3, B12, FT4M #### [facility] [address] [place] [address] #### HVAAO, ANA3, HEPAN, B2GPG, B2GPM, B2GPA #### [address] #### LUPUS #### The performing lab is in the report. Platelets (Bld) [#/Vol] 208 10*3/uL Normal 140-440 [facility] Comment on above: Performed By: #### A PTT, TSH5, HEMDF, LDH3, DDI2, BMP3M, ESR, FOLT3, URIC3, FEIBC, FERR3, B12, FT4M #### [facility] [address] [place] [address] #### HVAAO, ANA3, HEPAN, B2GPG, B2GPM, B2GPA #### [address] #### LUPUS #### The performing lab is in the report. RBC (Bld) [#/Vol] 4.74 10*6/uL Normal 3.80-5.20 [facility] Comment on above: Performed By: #### A PTT, TSH5, HEMDF, LDH3, DDI2, BMP3M, ESR, FOLT3, URIC3, FEIBC, FERR3, B12, FT4M #### [facility] [address] [place] [address] #### HVAAO, ANA3, HEPAN, B2GPG, B2GPM, B2GPA #### [address] #### LUPUS #### The performing lab is in the report. WBC (Bld) [#/Vol] 10.0 10*3/uL Normal 3.6-10.7 [facility] Comment on above: Performed By: #### A PTT, TSH5, HEMDF, LDH3, DDI2, BMP3M, ESR, FOLT3, URIC3, FEIBC, FERR3, B12, FT4M #### [address] [place] [address] #### HVAAO, ANA3, HEPAN, B2GPG, B2GPM, B2GPA #### [address] #### LUPUS #### The performing lab is in the report. Magnesiumon 11-03-2021 Magnesium [Mass/Vol] 2.1 mg/dL Normal 1.6-2.3 [facility] Comment on above: Performed By: #### A PTT, TSH5, HEMDF, LDH3, DDI2, BMP3M, ESR, FOLT3, URIC3, FEIBC, FERR3, B12, FT4M #### [address] [place] [address] #### HVAAO, ANA3, HEPAN, B2GPG, B2GPM, B2GPA #### [address] #### LUPUS #### The performing lab is in the report. APTTon 11-02-2021 aPTT Coag (Bld) [Time] 22.5 s Normal 20.0-30.5 [facility] Comment on above: Result Comment: NOTE : The therapeutic time for Heparin anticoagulation, based on Xa activity inhibition, is an APTT of 46-80 seconds. Performed By: #### A PTT, TSH5, HEMDF, LDH3, DDI2, BMP3M, ESR, FOLT3, URIC3, FEIBC, FERR3, B12, FT4M #### [facility] [address] [place] [address] #### HVAAO, ANA3, HEPAN, B2GPG, B2GPM, B2GPA #### [address] [address] #### LUPUS #### The performing lab is in the report. Add on test from HISon 11-02 Add on test from HIS Accepted Normal [facility] Comment on above: Result Comment: Spec imen available & acceptable for analysis. Performed By: #### A PTT, TSH5, HEMDF, LDH3, DDI2, BMP3M, ESR, FOLT3, URIC3, FEIBC, FERR3, B12, FT4M #### [place] [address] [place] [address] #### HVAAO, ANA3, HEPAN, B2GPG, B2GPM, B2GPA #### [place] [address] #### LUPUS #### The performing lab is in the report. Basic Metabolic Panelon 10-23 Calcium [Mass/Vol] 9.4 mg/dL Normal 8.4-10.4 [facility] Comment on above: Performed By: #### A PTT, TSH5, HEMDF, LDH3, DDI2, BMP3M, ESR, FOLT3, URIC3, FEIBC, FERR3, B12, FT4M #### [place] [address] [place] [address] #### HVAAO, ANA3, HEPAN, B2GPG, B2GPM, B2GPA #### [place] [address] #### LUPUS #### The performing lab is in the report. Anion gap [Moles/Vol] 7 mmol/L Normal 3-13 [facility] Comment on above: Performed By: #### A PTT, TSH5, HEMDF, LDH3, DDI2, BMP3M, ESR, FOLT3, URIC3, FEIBC, FERR3, B12, FT4M #### [facility] [address] [place] [address] #### HVAAO, ANA3, HEPAN, B2GPG, B2GPM, B2GPA #### [address] #### LUPUS #### The performing lab is in the report. CO2 [Moles/Vol] 30 mmol/L Normal 22-30 [facility] Comment on above: Performed By: #### A PTT, TSH5, HEMDF, LDH3, DDI2, BMP3M, ESR, FOLT3, URIC3, FEIBC, FERR3, B12, FT4M #### [place] [address] [facility] [place] #### HVAAO, ANA3, HEPAN, B2GPG, B2GPM, B2GPA #### [address] #### LUPUS #### The performing lab is in the report. Creatinine [Mass/Vol] 0.99 mg/dL Normal 0.52-1.25 [facility] Comment on above: Performed By: #### A PTT, TSH5, HEMDF, LDH3, DDI2, BMP3M, ESR, FOLT3, URIC3, FEIBC, FERR3, B12, FT4M #### [address] [place] [address] #### HVAAO, ANA3, HEPAN, B2GPG, B2GPM, B2GPA #### [address] #### LUPUS #### The performing lab is in the report. GFR/1.73 sq M.predicted among blacks MDRD (S/P/Bld) [Vol rate/Area] 63.0 mL/min/{1.73_m2} Normal >60 [facility] Comment on above: Performed By: #### A PTT, TSH5, HEMDF, LDH3, DDI2, BMP3M, ESR, FOLT3, URIC3, FEIBC, FERR3, B12, FT4M #### [facility] [employer] [facility] [address] [place] [address] #### HVAAO, ANA3, HEPAN, B2GPG, B2GPM, B2GPA #### [email or web address] [facility] [address] [place] [address] #### LUPUS #### The performing lab is in the report. GFR/1.73 sq M.predicted among non-blacks MDRD (S/P/Bld) [Vol rate/Area] 54.4 mL/min/{1.73_m2} Abnormal >60 [facility] Comment on above: Result Comment: KDIG O [...] FOLT3, URIC3, FEIBC, FERR3, B12, FT4M #### [facility] [employer] [facility] [address] [place] [address] #### HVAAO, ANA3, HEPAN, B2GPG, B2GPM, B2GPA #### [facility] [employer] [facility] [address] [place] [address] #### LUPUS #### The performing lab is in the report. Glucose [Mass/Vol] 116 mg/dL High 70-100 [facility] Comment on above: Performed By: #### A PTT, TSH5, HEMDF, LDH3, DDI2, BMP3M, ESR, FOLT3, URIC3, FEIBC, FERR3, B12, FT4M #### [facility] [address] [place] [address] #### HVAAO, ANA3, HEPAN, B2GPG, B2GPM, B2GPA #### [address] #### LUPUS #### The performing lab is in the report. Urea nitrogen [Mass/Vol] 22 mg/dL High 9-20 [facility] Comment on above: Performed By: #### A PTT, TSH5, HEMDF, LDH3, DDI2, BMP3M, ESR, FOLT3, URIC3, FEIBC, FERR3, B12, FT4M #### [facility] [address] [place] [address] #### HVAAO, ANA3, HEPAN, B2GPG, B2GPM, B2GPA #### [address] #### LUPUS #### The performing lab is in the report. Chloride [Moles/Vol] 101 mmol/L Normal 98-107 [facility] Comment on above: Performed By: #### A PTT, TSH5, HEMDF, LDH3, DDI2, BMP3M, ESR, FOLT3, URIC3, FEIBC, FERR3, B12, FT4M #### [facility] [address] [place] [address] #### HVAAO, ANA3, HEPAN, B2GPG, B2GPM, B2GPA #### [address] #### LUPUS #### The performing lab is in the report. Potassium [Moles/Vol] 3.2 mmol/L Low 3.5-5.1 [facility] Comment on above: Performed By: #### A PTT, TSH5, HEMDF, LDH3, DDI2, BMP3M, ESR, FOLT3, URIC3, FEIBC, FERR3, B12, FT4M #### [facility] [address] [place] [address] #### HVAAO, ANA3, HEPAN, B2GPG, B2GPM, B2GPA #### [address] [address] #### LUPUS #### The performing lab is in the report. Sodium [Moles/Vol] 137 mmol/L Normal 135-145 [facility] Comment on above: Performed By: #### A PTT, TSH5, HEMDF, LDH3, DDI2, BMP3M, ESR, FOLT3, URIC3, FEIBC, FERR3, B12, FT4M #### [facility] [address] [place] [address] #### HVAAO, ANA3, HEPAN, B2GPG, B2GPM, B2GPA #### [address] [address] #### LUPUS #### The performing lab is in the report. CTA Chest w/ + w/o Contrasto n 11-02-2021 CTA Chest w/ + w/o Contrast Patient Name: CHAY TEAGUE Computed Tomography ACCESSION EXAM DATE/TIME PROCEDURE ORDERING PROVIDER [id number] 11/02/2021 17:43 EST CTA Chest w/ + w/o MD BERNARDINO, CAIN Contrast CPT code 01327 [id number] Reason For Exam (CTA Chest w/ + w/o Contrast) LLE DVT, chest pain r/o PE Report Reasons for examination: Chest pain and DVT. CT scan of the chest were performed with bolus contrast and high resolution scans for CT pulmonary angiographic study, with images post-processed by myself on [employer] workstation, with 3D - volume rendered CT [...] Transcribed Date and Time: 11/02/2021 5:56 Normal [facility] ED Provider Noteon ED Provider Note Emergency Department Encounter [facility] ED Patient: Chay Teague : [...] leg according to my discussion with the athletic agent. Plan is to admit to medicine with [...] are mis-transcribed.) LUIS STERN MD Acute Care [facility] Luis Stern MD 11/03/21 0736 [facility] Patient: Chay Teague : 1945 Date of Evaluation: 11/02/2021 ED DANETTE Provider: Sharri Morel PA-C EDcare was supervised by Dr. Stern who independently examined and evaluated the patient. Please see their attestation note for further details. I was wearing an N95 mask, surgical mask, and goggles. Chief Complaint Chief Complaint Patient presents with ? Leg Swelling NUIQSUT Chay Teague is a 76 y.o. female [...] otherwise acutely negative except as in the NUIQSUT. Past History Past Medical History: Diagnosis Date [...] (2.5 MG/3M (more content not included)... Normal [facility] Hemogram w/ Autodiffon 11-02 Abs Baso Cnt 0.1 10*3/uL Normal 0.0-0.2 [facility] Comment on above: Performed By: #### A PTT, TSH5, HEMDF, LDH3, DDI2, BMP3M, ESR, FOLT3, URIC3, FEIBC, FERR3, B12, FT4M #### [facility] [address] [place] [address] #### HVAAO, ANA3, HEPAN, B2GPG, B2GPM, B2GPA #### [address] #### LUPUS #### The performing lab is in the report. Abs Neutrophile Cnt 6.8 10*3/uL Normal 1.8-7.0 [facility] Comment on above: Performed By: #### A PTT, TSH5, HEMDF, LDH3, DDI2, BMP3M, ESR, FOLT3, URIC3, FEIBC, FERR3, B12, FT4M #### [facility] [address] [place] [address] #### HVAAO, ANA3, HEPAN, B2GPG, B2GPM, B2GPA #### [address] [address] #### LUPUS #### The performing lab is in the report. Basophils/100 WBC (Bld) 0.8 % Normal 0.0-2.0 [facility] Comment on above: Performed By: #### A PTT, TSH5, HEMDF, LDH3, DDI2, BMP3M, ESR, FOLT3, URIC3, FEIBC, FERR3, B12, FT4M #### [facility] [address] [place] [id number] #### HVAAO, ANA3, HEPAN, B2GPG, B2GPM, B2GPA #### [address] #### LUPUS #### The performing lab is in the report. Eosinophils (Bld) [#/Vol] 0.3 10*3/uL Normal 0.0-0.5 [facility] Comment on above: Performed By: #### A PTT, TSH5, HEMDF, LDH3, DDI2, BMP3M, ESR, FOLT3, URIC3, FEIBC, FERR3, B12, FT4M #### [address] [place] [address] #### HVAAO, ANA3, HEPAN, B2GPG, B2GPM, B2GPA #### [address] #### LUPUS #### The performing lab is in the report. Eosinophils/100 WBC (Bld) 2.9 % Normal 1.0-6.0 [facility] Comment on above: Performed By: #### A PTT, TSH5, HEMDF, LDH3, DDI2, BMP3M, ESR, FOLT3, URIC3, FEIBC, FERR3, B12, FT4M #### [address] [place] [address] #### HVAAO, ANA3, HEPAN, B2GPG, B2GPM, B2GPA #### [address] #### LUPUS #### The performing lab is in the report. Erythrocyte distribution width (RBC) [Ratio] 15.2 % High 11.5-14.5 [facility] Comment on above: Performed By: #### A PTT, TSH5, HEMDF, LDH3, DDI2, BMP3M, ESR, FOLT3, URIC3, FEIBC, FERR3, B12, FT4M #### [address] [place] [address] #### HVAAO, ANA3, HEPAN, B2GPG, B2GPM, B2GPA #### [address] #### LUPUS #### The performing lab is in the report. Granulocytes/100 WBC (Bld) 62.6 % Normal 40.0-80.0 [facility] Comment on above: Performed By: #### A PTT, TSH5, HEMDF, LDH3, DDI2, BMP3M, ESR, FOLT3, URIC3, FEIBC, FERR3, B12, FT4M #### [address] [place] [address] #### HVAAO, ANA3, HEPAN, B2GPG, B2GPM, B2GPA #### [address] #### LUPUS #### The performing lab is in the report. Hematocrit (Bld) [Volume fraction] 41.3 % Normal 35.0-47.0 [facility] Comment on above: Performed By: #### A PTT, TSH5, HEMDF, LDH3, DDI2, BMP3M, ESR, FOLT3, URIC3, FEIBC, FERR3, B12, FT4M #### [address] [place] [address] #### HVAAO, ANA3, HEPAN, B2GPG, B2GPM, B2GPA #### [address] #### LUPUS #### The performing lab is in the report. Hemoglobin (Bld) [Mass/Vol] 13.9 g/dL Normal 11.7-16.0 [facility] Comment on above: Performed By: #### A PTT, TSH5, HEMDF, LDH3, DDI2, BMP3M, ESR, FOLT3, URIC3, FEIBC, FERR3, B12, FT4M #### [address] [place] #### HVAAO, ANA3, HEPAN, B2GPG, B2GPM, B2GPA #### [address] #### LUPUS #### The performing lab is in the report. Lymphocytes (Bld) [#/Vol] 2.6 10*3/uL Normal 1.0-4.3 [facility] Comment on above: Performed By: #### A PTT, TSH5, HEMDF, LDH3, DDI2, BMP3M, ESR, FOLT3, URIC3, FEIBC, FERR3, B12, FT4M #### [address] [place] #### HVAAO, ANA3, HEPAN, B2GPG, B2GPM, B2GPA #### [address] #### LUPUS #### The performing lab is in the report. Lymphocytes/100 WBC (Bld) 23.6 % Normal 20.0-40.0 [facility] Comment on above: Performed By: #### A PTT, TSH5, HEMDF, LDH3, DDI2, BMP3M, ESR, FOLT3, URIC3, FEIBC, FERR3, B12, FT4M #### [address] [place] #### HVAAO, ANA3, HEPAN, B2GPG, B2GPM, B2GPA #### [address] #### LUPUS #### The performing lab is in the report. MCH (RBC) [Entitic mass] 30.7 pg Normal 26.0-34.0 [facility] Comment on above: Performed By: #### A PTT, TSH5, HEMDF, LDH3, DDI2, BMP3M, ESR, FOLT3, URIC3, FEIBC, FERR3, B12, FT4M #### [address] [place] #### HVAAO, ANA3, HEPAN, B2GPG, B2GPM, B2GPA #### [address] #### LUPUS #### The performing lab is in the report. MCHC 33.6 % Normal 32.0-36.0 [facility] Comment on above: Performed By: #### A PTT, TSH5, HEMDF, LDH3, DDI2, BMP3M, ESR, FOLT3, URIC3, FEIBC, FERR3, B12, FT4M #### [facility] [address] [place] [address] #### HVAAO, ANA3, HEPAN, B2GPG, B2GPM, B2GPA #### [address] #### LUPUS #### The performing lab is in the report. MCV (RBC) [Entitic vol] 91.2 fL Normal 79.0-98.0 [facility] Comment on above: Performed By: #### A PTT, TSH5, HEMDF, LDH3, DDI2, BMP3M, ESR, FOLT3, URIC3, FEIBC, FERR3, B12, FT4M #### [facility] [address] [place] [address] #### HVAAO, ANA3, HEPAN, B2GPG, B2GPM, B2GPA #### [address] #### LUPUS #### The performing lab is in the report. Monocytes (Bld) [#/Vol] 1.1 10*3/uL High 0.0-0.8 [facility] Comment on above: Performed By: #### A PTT, TSH5, HEMDF, LDH3, DDI2, BMP3M, ESR, FOLT3, URIC3, FEIBC, FERR3, B12, FT4M #### [facility] [address] [place] [address] #### HVAAO, ANA3, HEPAN, B2GPG, B2GPM, B2GPA #### [address] #### LUPUS #### The performing lab is in the report. Monocytes/100 WBC (Bld) 10.1 % High 2.0-10.0 [facility] Comment on above: Performed By: #### A PTT, TSH5, HEMDF, LDH3, DDI2, BMP3M, ESR, FOLT3, URIC3, FEIBC, FERR3, B12, FT4M #### [facility] [address] [place] [address] #### HVAAO, ANA3, HEPAN, B2GPG, B2GPM, B2GPA #### [place] [address] [place], [place] #### LUPUS #### The performing lab is in the report. Platelet mean volume (Bld) [Entitic vol] 8.9 fL Normal 7.4-10.4 [facility] Comment on above: Performed By: #### A PTT, TSH5, HEMDF, LDH3, DDI2, BMP3M, ESR, FOLT3, URIC3, FEIBC, FERR3, B12, FT4M #### [facility] [address] [place], [place] #### HVAAO, ANA3, HEPAN, B2GPG, B2GPM, B2GPA #### [address] #### LUPUS #### The performing lab is in the report. Platelets (Bld) [#/Vol] 208 10*3/uL Normal 140-440 [facility] Comment on above: Performed By: #### A PTT, TSH5, HEMDF, LDH3, DDI2, BMP3M, ESR, FOLT3, URIC3, FEIBC, FERR3, B12, FT4M #### [facility] [address] [place] [address] #### HVAAO, ANA3, HEPAN, B2GPG, B2GPM, B2GPA #### [address] #### LUPUS #### The performing lab is in the report. RBC (Bld) [#/Vol] 4.53 10*6/uL Normal 3.80-5.20 [facility] Comment on above: Performed By: #### A PTT, TSH5, HEMDF, LDH3, DDI2, BMP3M, ESR, FOLT3, URIC3, FEIBC, FERR3, B12, FT4M #### [facility] [address] [place] [address] #### HVAAO, ANA3, HEPAN, B2GPG, B2GPM, B2GPA #### [address] [address] #### LUPUS #### The performing lab is in the report. WBC (Bld) [#/Vol] 10.9 10*3/uL High 3.6-10.7 [facility] Comment on above: Performed By: #### A PTT, TSH5, HEMDF, LDH3, DDI2, BMP3M, ESR, FOLT3, URIC3, FEIBC, FERR3, B12, FT4M #### [facility] [address] [place] [address] #### HVAAO, ANA3, HEPAN, B2GPG, B2GPM, B2GPA #### [address] [phone] #### LUPUS #### The performing lab is in the report. Prothrombin Timeon 2 INR 1.0 Normal 0.9-1.1 [facility] Comment on above: Result Comment: Kwaku mmended [...] FOLT3, URIC3, FEIBC, FERR3, B12, FT4M #### [place] [address] [place] [address] #### HVAAO, ANA3, HEPAN, B2GPG, B2GPM, B2GPA #### [address] #### LUPUS #### The performing lab is in the report. PT Coag (PPP) [Time] 10.6 s Normal 9.0-12.0 [facility] Comment on above: Result Comment: . Performed By: #### A PTT, TSH5, HEMDF, LDH3, DDI2, BMP3M, ESR, FOLT3, URIC3, FEIBC, FERR3, B12, FT4M #### [place] [address] [place] [address] #### HVAAO, ANA3, HEPAN, B2GPG, B2GPM, B2GPA #### [address] #### LUPUS #### The performing lab is in the report. Troponin Ion 11-02-2021 Troponin I.cardiac [Mass/Vol] ng/mL Normal 0.000-0.034 [facility] Comment on above: Result Comment: . Performed By: #### A PTT, TSH5, HEMDF, LDH3, DDI2, BMP3M, ESR, FOLT3, URIC3, FEIBC, FERR3, B12, FT4M #### [address] [place] [address] #### HVAAO, ANA3, HEPAN, B2GPG, B2GPM, B2GPA #### [address] #### LUPUS #### The performing lab is in the report. VL Venous Duplex US Lower Ex t Lefton 11-02-2021 VL Venous Duplex US Lower Ext Left Patient Name: CHAY TEAGUE Ultrasound ACCESSION EXAM DATE/TIME PROCEDURE ORDERING PROVIDER [id number] 11/02/2021 13:09 EST VL Venous Duplex [place] [id number] -SHARRI FATIMA Lower Ext Left CPT code 59847 Reason For Exam (VL Venous Duplex US Lower Ext Left) left lower leg swelling - new onset today Report [facility] Lower Extremity Venous Duplex Report Patient Chay Teague : 1945 Study 11/02/2021 Name: Krystal (76yrs) Date: Age: 76 Account: [id number] Gender: F Loc: 444 BP: Ordering Physician: Sharri Fatima Table Cut Off Saw Operator: Mikal Serna RVT Interpreting Physician: Christofer Carrillo MD Location: [facility] Indications: Edema left entire leg. New [...] supine position. Images were obtained using a [employer] vascular ultrasound machine. The study was technically [...] Christofer Carrillo (more content not included)... Normal [facility] KNEE CMPLT, 4 OR MORE VIEWSo n 08-29-2021 KNEE CMPLT, 4 OR MORE VIEWS Patient Name: CHAY TEAGUE STUDY: KNEE; COMPLT, 4 OR MORE VIEWS INDICATION: knee pain M25.562: Knee pain, left. COMPARISON: None ACCESSION NUMBER(S): [id number] ORDERING CLINICIAN: NIMCO TURNER FINDINGS: Four views left knee demonstrate minimal degenerative change. No fracture seen. No osseous abnormality. IMPRESSION: No acute findings left knee. Electronically signed by: JACKLYN MURDOCK MD Normal [facility] Office Visit (Urgent Care)on 08-29-2021 Follow-up visit Diagnoses/Problems Assessed Knee pain, left (719.46) (M25.562) Orders Knee pain, left Xray Knee Complete 4 or more View; Status:Resulted - Requires Verification; Done: [id number] 07:42PM Performed:[facility]; Due:27Nov2021;Ordered; Stat; For:Knee pain, left; [...] Thx. Vitals Vital Signs Recorded: 29Aug2021 07:41PM Gmglumxlula79.3 F Heart Vdyf083 Cremevpuhcj85 Xveapwbt858 Vgftfgmpk59 Height5 ft 1 in Umamua494 lb BMI Qwbhnbnbaj11.9 kg/m2 BSA Calculated1.85 Tobacco Useb) No Fall Screeningb) One or more falls in the last year O2 Nflmhbiwbt93 Physical Exam Constitutional: Well developed, well nourished. [...] Results/Data Xray Knee Complete 4 or more [id number] 07:42PMNimco Turner Test NameResultFlagReference Xray Knee Complete 4 or more View(Report) FINAL REPORT Interpreted by: JACKLYN MURDOCK CHRISTOPHER, MD 08/29/21 19:50 Patient Name: CHAY TEAGUE STUDY: KNEE; COMPLT, 4 OR MORE VIEWS INDICATION: knee pain M25.562: Knee pain, left. COMPARISON: None ACCESSION NUMBER(S): [id number] ORDERING CLINICIAN: NIMCO TURNER FINDINGS: Four views left knee demonstrate minimal degenerative change. No fracture seen. No osseous abnormality. IMPRESSION: No acute findings left knee. Electronically signed by: JACKLYN MURDOCK 08/29/21 19:50 Signatures Electronically signed by : Nimco Turner, [employer]PATCHER CHIEF; Aug 29 2021 8:16PM EST (Author) Normal [...] 1.8 - 7.0 10*3/uL [facility] Work Phone: [phone] Basophils/100 WBC (Bld) 0.8 % 0.0 - 2.0 % [facility] Work Phone: [phone] Eosinophils (Bld) [#/Vol] 0.3 10*3/uL 0.0 - 0.5 10*3/uL [facility] Work Phone: Eosinophils/100 WBC (Bld) 3.2 % 1.0 - 6.0 % [facility] Work Phone: [phone] Granulocytes/100 WBC (Bld) 59.4 % 40.0 - 80.0 % [facility] Work Phone: Hematocrit (Bld) [Volume fraction] 44.8 % 35.0 - 47.0 % [facility] Work Phone: Hemoglobin.gastrointes tinal spec 1 Ql (Stl) 15.1 g/dL 11.7 - 16.0 g/dL [facility] Work Phone: Interpretation and review of laboratory results Abnormal [employer] Work Phone: [phone] Lymphocytes (Bld) [#/Vol] 2.3 10*3/uL 1.0 - 4.3 10*3/uL [facility] Work Phone: Lymphocytes/100 WBC (Bld) 28.2 % 20.0 - 40.0 % [facility] Work Phone: [phone] MCH (RBC) [Entitic mass] 30.4 pg 26.0 - 34.0 pg [facility] Work Phone: [phone] MCHC (RBC) [Mass/Vol] 33.6 % 32.0 - 36.0 % [facility] Work Phone: [phone] 222 MCV (RBC) [Entitic vol] 90.3 fL 79.0 - 98.0 fL [facility] Work Phone: [phone] Monocytes (Bld) [#/Vol] 0.7 10*3/uL 0.0 - 0.8 10*3/uL [facility] Work Phone: [phone] Monocytes/100 WBC (Bld) 8.4 % 2.0 - 10.0 % [employer] Work Phone: [phone]() 222 Platelet distribution width (Bld) [Ratio] 14.6 % High 11.5 - 14.5 % [employer] Work Phone: 1() 222 Platelet mean volume (Bld) [Entitic vol] 8.0 fL 7.4 - 10.4 fL [facility] Work Phone: [phone] 222 Platelets (Bld) [#/Vol] 268 10*3/uL 140 - 440 10*3/uL [facility] Work Phone: () 222 RBC (Bld) [#/Vol] 4.96 10*6/uL 3.80 - 5.2 0 10*6/uL [facility] Work Phone: [phone] WBC (Bld) [#/Vol] 8.2 10*3/uL 3.6 - 10.7 10*3/uL [employer] Work Phone: [phone] Test Performed by [facility], [facility] Sherita Anderson , [place], [place] [address] [facility] Work Phone: 1() [facility] Work Phone: [phone] Comp Metabolic Panelon 05-10 ALP [Catalytic activity/Vol] 122 U/L Normal 38-126 [facility] [employer] [facility] Comment on above: Performed By: #### A PTT, TSH5, HEMDF, LDH3, DDI2, BMP3M, ESR, FOLT3, URIC3, FEIBC, FERR3, B12, FT4M #### [place] [address] [place] [address] #### HVAAO, ANA3, HEPAN, B2GPG, B2GPM, B2GPA #### [address] #### LUPUS #### The performing lab is in the report. ALT [Catalytic activity/Vol] 19 U/L Normal 0-34 [facility] Comment on above: Result Comment: The ALT test is performed by an updated assay method. Please note that the reference intervals have been changed and are now sex specific. Performed By: #### A PTT, TSH5, HEMDF, LDH3, DDI2, BMP3M, ESR, FOLT3, URIC3, FEIBC, FERR3, B12, FT4M #### [address] [place] [address] #### HVAAO, ANA3, HEPAN, B2GPG, B2GPM, B2GPA #### [address] #### LUPUS #### The performing lab is in the report. AST [Catalytic activity/Vol] 33 U/L Normal 15-46 [facility] Comment on above: Performed By: #### A PTT, TSH5, HEMDF, LDH3, DDI2, BMP3M, ESR, FOLT3, URIC3, FEIBC, FERR3, B12, FT4M #### [address] [place] [address] #### HVAAO, ANA3, HEPAN, B2GPG, B2GPM, B2GPA #### [address] #### LUPUS #### The performing lab is in the report. Calcium [Mass/Vol] 9.8 mg/dL Normal 8.4-10.4 [facility] Comment on above: Performed By: #### A PTT, TSH5, HEMDF, LDH3, DDI2, BMP3M, ESR, FOLT3, URIC3, FEIBC, FERR3, B12, FT4M #### [facility] [address] [place] [address] #### HVAAO, ANA3, HEPAN, B2GPG, B2GPM, B2GPA #### [address] #### LUPUS #### The performing lab is in the report. Glucose [Mass/Vol] 98 mg/dL Normal 70-100 [facility] Comment on above: Performed By: #### A PTT, TSH5, HEMDF, LDH3, DDI2, BMP3M, ESR, FOLT3, URIC3, FEIBC, FERR3, B12, FT4M #### [place] [address] [place] #### HVAAO, ANA3, HEPAN, B2GPG, B2GPM, B2GPA #### [address] #### LUPUS #### The performing lab is in the report. Protein [Mass/Vol] 8.0 g/dL Normal 6.3-8.2 [facility] Comment on above: Performed By: #### A PTT, TSH5, HEMDF, LDH3, DDI2, BMP3M, ESR, FOLT3, URIC3, FEIBC, FERR3, B12, FT4M #### [place] [address] [place] #### HVAAO, ANA3, HEPAN, B2GPG, B2GPM, B2GPA #### [address] #### LUPUS #### The performing lab is in the report. Urea nitrogen [Mass/Vol] 22 mg/dL High 7-20 [facility] Comment on above: Performed By: #### A PTT, TSH5, HEMDF, LDH3, DDI2, BMP3M, ESR, FOLT3, URIC3, FEIBC, FERR3, B12, FT4M #### [place] [address] [place] [address] #### HVAAO, ANA3, HEPAN, B2GPG, B2GPM, B2GPA #### [address] #### LUPUS #### The performing lab is in the report. Anion gap [Moles/Vol] 6 mmol/L Normal 3-13 [facility] Comment on above: Performed By: #### A PTT, TSH5, HEMDF, LDH3, DDI2, BMP3M, ESR, FOLT3, URIC3, FEIBC, FERR3, B12, FT4M #### [address] [facility] [place] [place] #### HVAAO, ANA3, HEPAN, B2GPG, B2GPM, B2GPA #### [address] #### LUPUS #### The performing lab is in the report. Bilirubin [Mass/Vol] 0.7 mg/dL Normal 0.2-1.3 [facility] Comment on above: Performed By: #### A PTT, TSH5, HEMDF, LDH3, DDI2, BMP3M, ESR, FOLT3, URIC3, FEIBC, FERR3, B12, FT4M #### [address] [place] [address] #### HVAAO, ANA3, HEPAN, B2GPG, B2GPM, B2GPA #### [address] #### LUPUS #### The performing lab is in the report. CO2 [Moles/Vol] 30 mmol/L Normal 22-30 [facility] Comment on above: Performed By: #### A PTT, TSH5, HEMDF, LDH3, DDI2, BMP3M, ESR, FOLT3, URIC3, FEIBC, FERR3, B12, FT4M #### [address] [place] [address] #### HVAAO, ANA3, HEPAN, B2GPG, B2GPM, B2GPA #### [address] [address] #### LUPUS #### The performing lab is in the report. Creatinine [Mass/Vol] 0.99 mg/dL Normal 0.52-1.25 [facility] Comment on above: Performed By: #### A PTT, TSH5, HEMDF, LDH3, DDI2, BMP3M, ESR, FOLT3, URIC3, FEIBC, FERR3, B12, FT4M #### [facility] [address] [place] [address] #### HVAAO, ANA3, HEPAN, B2GPG, B2GPM, B2GPA #### [facility] [address] [place] [address] #### LUPUS #### The performing lab is in the report. GFR/1.73 sq M.predicted among blacks MDRD (S/P/Bld) [Vol rate/Area] 63.2 mL/min/{1.73_m2} Normal >60 [facility] Comment on above: Performed By: #### A PTT, TSH5, HEMDF, LDH3, DDI2, BMP3M, ESR, FOLT3, URIC3, FEIBC, FERR3, B12, FT4M #### [facility] [address] [place] [address] #### HVAAO, ANA3, HEPAN, B2GPG, B2GPM, B2GPA #### [place] [address] [place] [address] #### LUPUS #### The performing lab is in the report. GFR/1.73 sq M.predicted among non-blacks MDRD (S/P/Bld) [Vol rate/Area] 54.6 mL/min/{1.73_m2} Abnormal >60 [facility] Comment on above: Result Comment: KDIG O [...] URIC3, FEIBC, FERR3, B12, FT4M #### [facility] [address] [place] [address] #### HVAAO, ANA3, HEPAN, B2GPG, B2GPM, B2GPA #### [address] [address] #### LUPUS #### The performing lab is in the report. Albumin [Mass/Vol] 4.1 g/dL Normal 3.5-5.0 [facility] Comment on above: Performed By: #### A PTT, TSH5, HEMDF, LDH3, DDI2, BMP3M, ESR, FOLT3, URIC3, FEIBC, FERR3, B12, FT4M #### [facility] [address] [place] [address] #### HVAAO, ANA3, HEPAN, B2GPG, B2GPM, B2GPA #### [address] [address] #### LUPUS #### The performing lab is in the report. Chloride [Moles/Vol] 105 mmol/L Normal 98-107 [facility] Comment on above: Performed By: #### A PTT, TSH5, HEMDF, LDH3, DDI2, BMP3M, ESR, FOLT3, URIC3, FEIBC, FERR3, B12, FT4M #### [address] [place] [address] #### HVAAO, ANA3, HEPAN, B2GPG, B2GPM, B2GPA #### [address] #### LUPUS #### The performing lab is in the report. Potassium [Moles/Vol] 4.3 mmol/L Normal 3.5-5.1 [facility] Comment on above: Performed By: #### A PTT, TSH5, HEMDF, LDH3, DDI2, BMP3M, ESR, FOLT3, URIC3, FEIBC, FERR3, B12, FT4M #### [place] [address] [place] [address] #### HVAAO, ANA3, HEPAN, B2GPG, B2GPM, B2GPA #### [address] #### LUPUS #### The performing lab is in the report. Sodium [Moles/Vol] 141 mmol/L Normal 135-145 [facility] Comment on above: Performed By: #### A PTT, TSH5, HEMDF, LDH3, DDI2, BMP3M, ESR, FOLT3, URIC3, FEIBC, FERR3, B12, FT4M #### [place] [address] [place] [address] #### HVAAO, ANA3, HEPAN, B2GPG, B2GPM, B2GPA #### [address] #### LUPUS #### The performing lab is in the report. Comprehensive Metabolic Pane lOrdered By: Cynthia Uribe on 05-10-2021 Albumin [Mass/Vol] 4.1 g/dL 3.5 - 5.0 g/dL [facility] Work Phone: [phone] ALP (Bld) [Catalytic activity/Vol] 122 U/L 38 - 126 U/L [facility] Work Phone: ALT [Catalytic activity/Vol] 19 U/L 0 - 34 U/L [facility] Work Phone: Comment on above: The ALT test is perf ormed by an updated assay method. Please note that the reference intervals have been changed and are now sex specific. Anion gap [Moles/Vol] 6 mmol/L 3 - 13 mmol/L [facility] Work Phone: AST [Catalytic activity/Vol] 33 U/L 15 - 46 U/L [facility] Work Phone: Bilirubin [Mass/Vol] 0.7 mg/dL 0.2 - 1 .3 mg/dL [facility] Work Phone: Calcium [Mass/Vol] 9.8 mg/dL 8.4 - 10. 4 mg/dL [facility] Work Phone: [phone] Chloride [Moles/Vol] 105 mmol/L 98 - 10 7 mmol/L [facility] Work Phone: [phone] CO2 [Moles/Vol] 30 mmol/L 22 - 30 mmol/L [facility] Work Phone: Creatinine [Mass/Vol] 0.99 mg/dL 0.52 - 1.25 mg/dL [facility] Work Phone: EGFR IF NonAfrican [place] 54.6 mL/min Abnormal >60 [facility] Work Phone: Comment on above: KDIGO [...] fraction] 8.0 g/dL 6.3 - 8.2 g/dL [facility] Work Phone: GFR/1.73 sq M.predicted among blacks MDRD (S/P/Bld) [Vol rate/Area] 63.2 mL/min/{1.73_m2} >60 [facility] Work Phone: [phone] Glucose [Mass/Vol] 98 mg/dL 70 - 100 mg/dL [facility] Work Phone: [phone] Interpretation and review of laboratory results Abnormal [facility] Work Phone: [phone] Potassium [Moles/Vol] 4.3 mmol/L 3.5 - 5.1 mmol/L [facility] Work Phone: [phone] Sodium [Moles/Vol] 141 mmol/L 135 - 145 mmol/L [facility] Work Phone: [phone] Urea nitrogen (BldV) [Mass/Vol] 22 mg/dL High 7 - 20 mg/dL [facility] Work Phone: [phone] Test Performed by [facility], [facility] Anderson , [address] Work Phone: [phone] [facility] Work Phone: [phone] Hemogram w/ Autodiffon 05-10 Abs Baso Cnt 0.1 10*3/uL Normal 0.0-0.2 [facility] Comment on above: Performed By: #### A PTT, TSH5, HEMDF, LDH3, DDI2, BMP3M, ESR, FOLT3, URIC3, FEIBC, FERR3, B12, FT4M #### [facility] [place] [address] [place] [address] #### HVAAO, ANA3, HEPAN, B2GPG, B2GPM, B2GPA #### [facility] [employer] [address] [address] #### LUPUS #### The performing lab is in the report. Abs Neutrophile Cnt 4.9 10*3/uL Normal 1.8-7.0 [facility] Comment on above: Performed By: #### A PTT, TSH5, HEMDF, LDH3, DDI2, BMP3M, ESR, FOLT3, URIC3, FEIBC, FERR3, B12, FT4M #### [facility] [place] [address] [place] [address] #### HVAAO, ANA3, HEPAN, B2GPG, B2GPM, B2GPA #### [address] #### LUPUS #### The performing lab is in the report. Basophils/100 WBC (Bld) 0.8 % Normal 0.0-2.0 [facility] Comment on above: Performed By: #### A PTT, TSH5, HEMDF, LDH3, DDI2, BMP3M, ESR, FOLT3, URIC3, FEIBC, FERR3, B12, FT4M #### [facility] [address] [place] [address] #### HVAAO, ANA3, HEPAN, B2GPG, B2GPM, B2GPA #### [address] #### LUPUS #### The performing lab is in the report. Eosinophils (Bld) [#/Vol] 0.3 10*3/uL Normal 0.0-0.5 [facility] Comment on above: Performed By: #### A PTT, TSH5, HEMDF, LDH3, DDI2, BMP3M, ESR, FOLT3, URIC3, FEIBC, FERR3, B12, FT4M #### [facility] [address] [place], [place] #### HVAAO, ANA3, HEPAN, B2GPG, B2GPM, B2GPA #### [address] #### LUPUS #### The performing lab is in the report. Eosinophils/100 WBC (Bld) 3.2 % Normal 1.0-6.0 [facility] Comment on above: Performed By: #### A PTT, TSH5, HEMDF, LDH3, DDI2, BMP3M, ESR, FOLT3, URIC3, FEIBC, FERR3, B12, FT4M #### [facility] [address] [place], [place] #### HVAAO, ANA3, HEPAN, B2GPG, B2GPM, B2GPA #### [address] #### LUPUS #### The performing lab is in the report. Erythrocyte distribution width (RBC) [Ratio] 14.6 % High 11.5-14.5 [facility] Comment on above: Performed By: #### A PTT, TSH5, HEMDF, LDH3, DDI2, BMP3M, ESR, FOLT3, URIC3, FEIBC, FERR3, B12, FT4M #### [facility] [address] [place] [address] #### HVAAO, ANA3, HEPAN, B2GPG, B2GPM, B2GPA #### [address] #### LUPUS #### The performing lab is in the report. Granulocytes/100 WBC (Bld) 59.4 % Normal 40.0-80.0 [facility] Comment on above: Performed By: #### A PTT, TSH5, HEMDF, LDH3, DDI2, BMP3M, ESR, FOLT3, URIC3, FEIBC, FERR3, B12, FT4M #### [facility] [address] [place] [address] #### HVAAO, ANA3, HEPAN, B2GPG, B2GPM, B2GPA #### [address] #### LUPUS #### The performing lab is in the report. Hematocrit (Bld) [Volume fraction] 44.8 % Normal 35.0-47.0 [facility] Comment on above: Performed By: #### A PTT, TSH5, HEMDF, LDH3, DDI2, BMP3M, ESR, FOLT3, URIC3, FEIBC, FERR3, B12, FT4M #### [facility] [address] [place] [address] #### HVAAO, ANA3, HEPAN, B2GPG, B2GPM, B2GPA #### [address] #### LUPUS #### The performing lab is in the report. Hemoglobin (Bld) [Mass/Vol] 15.1 g/dL Normal 11.7-16.0 [facility] Comment on above: Performed By: #### A PTT, TSH5, HEMDF, LDH3, DDI2, BMP3M, ESR, FOLT3, URIC3, FEIBC, FERR3, B12, FT4M #### [facility] [address] [place] [address] #### HVAAO, ANA3, HEPAN, B2GPG, B2GPM, B2GPA #### [address] #### LUPUS #### The performing lab is in the report. Lymphocytes (Bld) [#/Vol] 2.3 10*3/uL Normal 1.0-4.3 [facility] Comment on above: Performed By: #### A PTT, TSH5, HEMDF, LDH3, DDI2, BMP3M, ESR, FOLT3, URIC3, FEIBC, FERR3, B12, FT4M #### [place] [address] [place] [address] #### HVAAO, ANA3, HEPAN, B2GPG, B2GPM, B2GPA #### [address] #### LUPUS #### The performing lab is in the report. Lymphocytes/100 WBC (Bld) 28.2 % Normal 20.0-40.0 [facility] Comment on above: Performed By: #### A PTT, TSH5, HEMDF, LDH3, DDI2, BMP3M, ESR, FOLT3, URIC3, FEIBC, FERR3, B12, FT4M #### [place] [address] [place] [address] #### HVAAO, ANA3, HEPAN, B2GPG, B2GPM, B2GPA #### [address] #### LUPUS #### The performing lab is in the report. MCH (RBC) [Entitic mass] 30.4 pg Normal 26.0-34.0 [facility] Comment on above: Performed By: #### A PTT, TSH5, HEMDF, LDH3, DDI2, BMP3M, ESR, FOLT3, URIC3, FEIBC, FERR3, B12, FT4M #### [facility] [address] [place] [address] #### HVAAO, ANA3, HEPAN, B2GPG, B2GPM, B2GPA #### [address] #### LUPUS #### The performing lab is in the report. MCHC 33.6 % Normal 32.0-36.0 [facility] Comment on above: Performed By: #### A PTT, TSH5, HEMDF, LDH3, DDI2, BMP3M, ESR, FOLT3, URIC3, FEIBC, FERR3, B12, FT4M #### [facility] [address] [place] #### HVAAO, ANA3, HEPAN, B2GPG, B2GPM, B2GPA #### [address] #### LUPUS #### The performing lab is in the report. MCV (RBC) [Entitic vol] 90.3 fL Normal 79.0-98.0 [facility] Comment on above: Performed By: #### A PTT, TSH5, HEMDF, LDH3, DDI2, BMP3M, ESR, FOLT3, URIC3, FEIBC, FERR3, B12, FT4M #### [place] [address] [place] #### HVAAO, ANA3, HEPAN, B2GPG, B2GPM, B2GPA #### [address] #### LUPUS #### The performing lab is in the report. Monocytes (Bld) [#/Vol] 0.7 10*3/uL Normal 0.0-0.8 [facility] Comment on above: Performed By: #### A PTT, TSH5, HEMDF, LDH3, DDI2, BMP3M, ESR, FOLT3, URIC3, FEIBC, FERR3, B12, FT4M #### [address] [place] [address] #### HVAAO, ANA3, HEPAN, B2GPG, B2GPM, B2GPA #### [address] #### LUPUS #### The performing lab is in the report. Monocytes/100 WBC (Bld) 8.4 % Normal 2.0-10.0 [facility] Comment on above: Performed By: #### A PTT, TSH5, HEMDF, LDH3, DDI2, BMP3M, ESR, FOLT3, URIC3, FEIBC, FERR3, B12, FT4M #### [address] [place] [address] #### HVAAO, ANA3, HEPAN, B2GPG, B2GPM, B2GPA #### [address] #### LUPUS #### The performing lab is in the report. Platelet mean volume (Bld) [Entitic vol] 8.0 fL Normal 7.4-10.4 [facility] Comment on above: Performed By: #### A PTT, TSH5, HEMDF, LDH3, DDI2, BMP3M, ESR, FOLT3, URIC3, FEIBC, FERR3, B12, FT4M #### [address] [place], [place] #### HVAAO, ANA3, HEPAN, B2GPG, B2GPM, B2GPA #### [address] #### LUPUS #### The performing lab is in the report. Platelets (Bld) [#/Vol] 268 10*3/uL Normal 140-440 [facility] Comment on above: Performed By: #### A PTT, TSH5, HEMDF, LDH3, DDI2, BMP3M, ESR, FOLT3, URIC3, FEIBC, FERR3, B12, FT4M #### [place] [address] [place] [address] #### HVAAO, ANA3, HEPAN, B2GPG, B2GPM, B2GPA #### [address] #### LUPUS #### The performing lab is in the report. RBC (Bld) [#/Vol] 4.96 10*6/uL Normal 3.80-5.20 [facility] Comment on above: Performed By: #### A PTT, TSH5, HEMDF, LDH3, DDI2, BMP3M, ESR, FOLT3, URIC3, FEIBC, FERR3, B12, FT4M #### [address] [place] [address] #### HVAAO, ANA3, HEPAN, B2GPG, B2GPM, B2GPA #### [address] #### LUPUS #### The performing lab is in the report. WBC (Bld) [#/Vol] 8.2 10*3/uL Normal 3.6-10.7 [facility] Comment on above: Performed By: #### A PTT, TSH5, HEMDF, LDH3, DDI2, BMP3M, ESR, FOLT3, URIC3, FEIBC, FERR3, B12, FT4M #### [address] [place] [address] #### HVAAO, ANA3, HEPAN, B2GPG, B2GPM, B2GPA #### [address] #### LUPUS #### The performing lab is in the report. Hep C Antibodyon 05-10-2021 Hep C Antibody Not detected Normal Not Detected [facility] Comment on above: Result Comment: Patients with DETECTED Hepatitis C Ab results should have a new specimen submitted for supplemental testing with a Hepatitis C Quantitative RNA assay (viral load), if clinically indicated. Performed By: #### A PTT, TSH5, HEMDF, LDH3, DDI2, BMP3M, ESR, FOLT3, URIC3, FEIBC, FERR3, B12, FT4M #### [facility] [address] [place] [address] #### HVAAO, ANA3, HEPAN, B2GPG, B2GPM, B2GPA #### [email or web address] [place] [address] [place] [address] #### LUPUS #### The performing lab is in the report. Hepatitis C AntibodyOrdered By: Cynthia Uribe on 05-10-2021 Hepatitis C Ab Not detected Not Detected [facility] [employer] Work Phone: Comment on above: Patients with DETECTED Hepatitis C Ab results should have a new specimen submitted for supplemental testing with a Hepatitis C Quantitative RNA assay (viral load), if clinically indicated. Test Performed by [facility] [employer] [facility], [address] [place] [address] [employer] Work Phone: [employer] Work Phone: TSH without ReflexOrdered By : Cynthia Uribe on 05-10-2021 TSH Qn 2.583 u[IU]/mL 0.465 - 4.680 u[IU]/mL [employer] Work Phone: Test Performed by [facility] [employer] [facility], [address] , [place], [place] [address] [employer] Work Phone: [employer] Work Phone: Thyroid Stim. Hormoneon 04-22 Thyroid Stim. Hormone 2.583 u[IU]/mL Normal 0.465-4.68 0 [facility] [place] Comment on above: Performed By: #### A PTT, TSH5, HEMDF, LDH3, DDI2, BMP3M, ESR, FOLT3, URIC3, FEIBC, FERR3, B12, FT4M #### [facility] [address] [place] [address] #### HVAAO, ANA3, HEPAN, B2GPG, B2GPM, B2GPA #### [email or web address] [place] [address] [place] [address] #### LUPUS #### The performing lab is in the report. Vit D 25-OH, Totalon 021 Vit D 25-OH, Total 51 ng/mL Normal 30-100 [facility] [employer] [facility] Comment on above: Result Comment: Ther apy is based on measurement of Total 25- OHD with the following classification levels: Less than 20 ng/mL: Indicative of Vit D deficiency 20-30 ng/mL: Suggests Vit D insufficiency Optimal: Greater than or equal to 30 ng/mL Test performed by [employer] Competitive Immunoassay, measuring Total Vitamin D, not individual fractions. Performed By: #### A PTT, TSH5, HEMDF, LDH3, DDI2, BMP3M, ESR, FOLT3, URIC3, FEIBC, FERR3, B12, FT4M #### [facility] [employer] [facility] [address] [place] [address] #### HVAAO, ANA3, HEPAN, B2GPG, B2GPM, B2GPA #### [facility] [employer] [address] [address] #### LUPUS #### The performing lab is in the report. Vitamin D 25 HydroxyOrdered By: Cynthia Uribe on 05-10-2021 Vit D, 25-Hydroxy 51 ng/mL 30 - 100 ng/mL [facility] [employer] Work Phone: Comment on above: Therapy is based on measurement of Total 25-OHD with the following classification levels: Less than 20 ng/mL: Indicative of Vit D deficiency 20-30 ng/mL: Suggests Vit D insufficiency Optimal: Greater than or equal to 30 ng/mL Test performed by [employer] Competitive Immunoassay, measuring Total Vitamin D, not individual fractions. Test Performed by [facility] [employer] [facility], [address], [place], [place] [address] [facility] Work Phone: [employer] Work Phone: Brain Natriuretic Peptideon 11-02-2020 Natriuretic peptide B (Bld) [Mass/Vol] 51 pg/mL 0 - 450 pg/mL [facility] Work Phone: COVID-19, Rapidon 11-02-2020 Sodium [Moles/Vol] see below [facility] Work Phone: Comment on above: Not Detected Expected Result: Not Detected _ Isothermal nucleic acid amplification performed on the [employer] System by the [facility] Negative results do not preclude SARS-CoV-2 infection and should not be used as the sole basis for treatment or other patient management decisions. This assay was developed by [employer] and distributed under an Emergency Use Authorization (EUA) granted by the FDA for the qualitative detection of SARS-CoV-2 nucleic acid. Provider and patient fact sheets can be found at https://www.fda.gov/media/380179/download and https://www.fda.gov/media/318470/download. Test Performed by [facility], [address] Work Phone: CT Abdomen Pelvis W Contrast on 11-02-2020 Patient Name: CHAY ETAGUE Computed Tomography ACCESSION EXAM DATE/TIME PROCEDURE ORDERING PROVIDER [id number] 11/02/2020 17:[address] Abdomen/Pelvis w/ IV [id number] JAME DEGROOT Contrast (IV Onl CPT code 83451 Q9967 Reason For Exam (CT Abdomen/Pelvis w/ [...] [facility] Incoming [facility] Results From [facility] - 11/02/2020 6:01 PM EST Patient Name: CHAY TEAGUE Computed Tomography ACCESSION EXAM DATE/TIME PROCEDURE ORDERING PROVIDER [id number] 11/02/2020 17:[address] Abdomen/Pelvis w/ IV [id number] JAME DEGROOT Contrast (IV Onl CPT code 18579 Q9967 Reason For Exam (CT Abdomen/Pelvis w/ [...] Tomography ACCESSION EXAM DATE/TIME PROCEDURE ORDERING PROVIDER [id number] 11/02/2020 17:[address] Head or Brain w/o [id number] -GEORGE BESTER Contrast CPT code 95792 Reason For Exam (CT Head or Brain [...] [facility] Incoming Radiology Results From [facility] - 11/02/2020 5:37 PM EST [facility]: [id number] Comput[facility] Tomography ACCESSION EXAM DATE/TIME PROCEDURE ORDERING PROVIDER [id number] 11/02/2020 17:[address] Head or Brain w/o [id number] JAUREGUI Contrast CPT code 82565 Reason For Exam (CT Head or Brain [...] Tomography ACCESSION EXAM DATE/TIME PROCEDURE ORDERING PROVIDER [id number] 11/02/2020 17:36 EST CTA Chest w/ + w/o [id number] -NASIR JAME Contrast CPT code 17809 Reason For Exam (CTA Chest w/ + [...] Time: 11/02/2020 5:51 [facility] Work Phone: Jt, Anton Incoming Radiology Results From [facility] - 11/02/2020 5:51 PM EST [facility] [id number] Computed Tomography ACCESSION EXAM DATE/TIME PROCEDURE ORDERING PROVIDER [id number] 11/02/2020 17:36 EST CTA Chest w/ + w/o [id number] -JAME BEST Contrast CPT code 42904 Reason For Exam (CTA Chest w/ + [...] [Mass/Vol] 3.8 g/dL 3.5 - 5 g/dL [facility] Work Phone: ALP [Catalytic activity/Vol] 113 U/L 38 - 126 U/L [facility] Work Phone: [phone] ALT [Catalytic activity/Vol] 22 U/L 0 - 34 U/L [facility] Work Phone: Comment on above: The ALT test is perf ormed by an updated assay method. Please note that the reference intervals have been changed and are now sex specific. Anion gap [Moles/Vol] 7 mmol/L [facility] Work Phone: AST [Catalytic activity/Vol] 42 U/L 15 - 46 U/L [facility] Work Phone: [phone] Bilirubin Ql (U) 0.5 mg/dL 0.2 - 1.3 mg/dL [facility] Work Phone: [phone] Calcium [Mass/Vol] 9.1 mg/dL 8.4 - 10. 4 mg/dL [facility] Work Phone: [phone] Chloride [Moles/Vol] 102 mmol/L 98 - 10 7 mmol/L [facility] Work Phone: CO2 [Moles/Vol] 29 mmol/L 22 - 30 mmol/L [facility] Work Phone: [phone] Creatinine [Mass/Vol] 1.02 mg/dL 0.52 - 1.25 mg/dL [facility] Work Phone: EGFR IF NonAfrican [place]err[place] 52.8 mL/min Abnormal >60 [facility] Work Phone: Comment on above: KDIGO [...] [Mass/Vol] 100 mg/dL 70 - 100 mg/dL [facility] Work Phone: [phone] Interpretation and review of laboratory results Abnormal [facility] Work Phone: 222 Potassium [Moles/Vol] 3.3 mmol/L Low 3.5 - 5.1 mmol/L [facility] Work Phone: 222 Protein [Mass/Vol] 7.0 g/dL 6.3 - 8.2 g/dL [facility] Work Phone: 222 Sodium [Moles/Vol] 138 mmol/L 135 - 145 mmol/L [facility] Work Phone: [phone] Urea nitrogen [Mass/Vol] 16 mg/dL 7 - 20 mg/dL [facility] Work Phone: 222 Hemogram (CBC) w/Auto [...] (Bld) 54.6 % 40 - 80 % [facility] Work Phone: ) 222 Hematocrit (Bld) [Volume fraction] 40.5 % 35 - 47 % [facility] Work Phone: [phone] Hemoglobin (Bld) [Mass/Vol] 13.4 g/dL 11.7 - 16 g/dL [facility] Work Phone: [phone] Interpretation and review of laboratory results Abnormal [facility] Work Phone: [phone] Lymphocytes (Bld) [#/Vol] 3.2 10*3/uL 1 - 4.3 10*3/uL [facility] Work Phone: [phone] Lymphocytes/100 WBC (Bld) 32.4 % 20 - 40 % [facility] Work Phone: ) 222 MCH (RBC) [Entitic mass] 29.7 pg 26 - 34 pg [facility] Work Phone: [phone] MCHC (RBC) [Mass/Vol] 33.2 % 32 - 36 % [facility] Work Phone: () 222 MCV (RBC) [Entitic vol] 89.5 fL 79 - 98 fL [facility] Work Phone: [phone] Monocytes (Bld) [#/Vol] 0.9 10*3/uL High 0 - 0.8 10*3/uL [facility] Work Phone: [phone] Monocytes/100 WBC (Bld) 9.1 % 2 - 10 % [facility] Work Phone: [phone] Platelet mean volume (Bld) [Entitic vol] 9.0 fL 7.4 - 10.4 fL [facility] Work Phone: [phone] Platelets (Bld) [#/Vol] 295 10*3/uL 140 - 440 10*3/uL [facility] Work Phone: [phone] RBC (Bld) [#/Vol] 4.53 10*6/uL 3.8 - 5.2 10*6/uL [facility] Work Phone: [phone] WBC (Bld) [#/Vol] 9.9 10*3/uL 3.6 - 10.7 10*3/uL [facility] Work Phone: [phone] Test Performed by [facility], [address] [place], [place] [address] [facility] Work Phone: [phone] Lactic Acid, Plasmaon 2020 Lactate [Moles/Vol] 1.4 mmol/L 0.7 - 2 mmol/L [facility] Work Phone: [phone] Otheron 11-02-2020 Test Performed by [facility], [address] [place], [place] [address] [facility] Work Phone: [phone] Test Performed by [facility], [address] [place], [place] [address] [facility] Work Phone: [phone] Protime-INRon 11-02-2020 INR Coag (PPP) [Relative time] {INR} [facility] Work Phone: [phone] Comment on above: Recommended Anticoag ulant [...] - 12 s [facility] Work Phone: [phone] Comment on above: . Test Performed by [facility], [address] [place], [place] [address] [facility] Work Phone: Troponin x1on 11-02-2020 Troponin I.cardiac [Mass/Vol] ng/mL 0 - 0.034 ng/mL [facility] Work Phone: Comment on above: . Culture, Urineon 03-08-2020 Bacteria identified Cx Nom (U) No growth (<1,000 CFU/ml). [facility] [place], [place] Test Performed by [facility], [address] [place] [address] [place], [place] CBCon 03-07-2020 Erythrocyte distribution width (RBC) [Ratio] 15.4 % High 11.5 - 14.5 % [place] Hematocrit (Bld) [Volume fraction] 38.1 % 35 - 47 % [place] Hemoglobin (Bld) [Mass/Vol] 12.7 g/dL 11.7 - 16 g/dL [place] Interpretation and review of laboratory results Abnormal [place] MCH (RBC) [Entitic mass] 29.9 pg 26 - 34 pg [place] MCHC (RBC) [Mass/Vol] 33.4 % 32 - 36 % [place] MCV (RBC) [Entitic vol] 89.5 fL 79 - 98 fL [place] Platelet mean volume (Bld) [Entitic vol] 8.7 fL 7.4 - 10.4 fL [place] Platelets (Bld) [#/Vol] 248 10*3/uL 140 - 440 10*3/uL [place] RBC (Bld) [#/Vol] 4.26 10*6/uL 3.8 - 5.2 10*6/uL [place] WBC (Bld) [#/Vol] 6.2 10*3/uL 3.6 - 10.7 10*3/uL [place] Test Performed by [facility], [address] [place], [place], [place] [address] [place] Comprehensive Metabolic Pane l w/ Reflex to MGon 03-07-2020 Albumin [Mass/Vol] 3.5 g/dL 3.5 - 5 g/dL [place] ALP [Catalytic activity/Vol] 125 U/L 38 - 126 U/L [place] ALT [Catalytic activity/Vol] 31 U/L 0 - 34 U/L [place] Comment on above: The ALT test is perf ormed by an updated assay method. Please note that the reference intervals have been changed and are now sex specific. Anion gap [Moles/Vol] 10 mmol/L [place] AST [Catalytic activity/Vol] 45 U/L 15 - 46 U/L [place] Bilirubin Ql (U) 0.6 mg/dL 0.2 - 1.3 mg/dL [place] Calcium [Mass/Vol] 8.3 mg/dL Low 8.4 - 10. 4 mg/dL [place] Chloride [Moles/Vol] 107 mmol/L 98 - 10 7 mmol/L [place] CO2 [Moles/Vol] 27 mmol/L 22 - 30 mmol/L [place] Creatinine [Mass/Vol] 0.76 mg/dL 0.52 - 1.25 mg/dL [place] EGFR IF NonAfrican [place] 75.7 mL/min >60 [place] Comment on above: KDIGO guidelines pro [...] MDRD (S/P/Bld) [Vol rate/Area] 87.8 mL/min/{1.73_m2} >60 [place] Glucose [Mass/Vol] 101 mg/dL High 70 - 100 mg/dL [place] Potassium [Moles/Vol] 3.7 mmol/L 3.5 - 5.1 mmol/L [place] Protein [Mass/Vol] 6.6 g/dL 6.3 - 8.2 g/dL [place] Sodium [Moles/Vol] 144 mmol/L 135 - 145 mmol/L [place] Urea nitrogen [Mass/Vol] 15 mg/dL 7 - 20 mg/dL [place] ECHO Complete 2D W Doppler W Coloron 03-07-2020 TRANSTHORACIC ECHOCARDIOGRAM PATIENT: Cahy Teague STUDY DATE: 03/07/2020 : 1945 AGE: 74 HT/WT: 160 cm (63 90.7 kg in) (199.6 lb) GENDER: F BP: 160 / 101 LOCATION: [facility] PATIENT Observation [facility] STATUS: *ORDERING PHYSICIAN: * Delia Chavez *READING PHYSICIAN: * John Whitlock MD, *ORNAMENTAL METAL WORKER HELPER: * Skye Garcia [facility] INDICATIONS: TIA CONCLUSIONS SUMMARY: 1. Left [...] range. Electronically signed by John Whitlock MD, [facility] 03/07/2020 12:07 Prior Signatures: [facility], [place] Jt, [facility] Incoming Cardiology [facility] - 03/07/2020 12:08 PM EDT TRANSTHORACIC ECHOCARDIOGRAM PATIENT: Chay Teague STUDY DATE: 03/07/2020 : 1945 AGE: 74 HT/WT: 160 cm (63 90.7 kg in) (199.6 lb) GENDER: F BP: 160 / 101 LOCATION: [facility] PATIENT Observation [facility] STATUS: *ORDERING PHYSICIAN: * Delia Chavez *READING PHYSICIAN: * John Whitlock MD, *ORNAMENTAL METAL WORKER HELPER: * Skye Garcia [facility] INDICATIONS: TIA CONCLUSIONS SUMMARY: 1. Left [...] range. Electronically signed by John Whitlock MD, [facility] 03/07/2020 12:07 Prior Signatures: [facility] [employer] EKG 12 Leadon 03-07-2020 [facility] Test Date: 2020-03-06 Pat Name: Chay Teague Department: Room: 453 Gender: F Access Tech: 2014 : 1945 Requested By: EMILY REESE Order Number: [id number] Reading : Niels Reese Measurements Intervals [place] Rate: 95 P: 70 MI: 176 QRS: -36 QRSD: 120 T: 45 QT: 388 QTc: 488 Interpretive Statements SINUS RHYTHM PROBABLE LEFT ATRIAL ABNORMALITY IVCD, CONSIDER ATYPICAL RBBB Compared to ECG 03/06/2017 15:56:33 No significant changes Electronically Signed On 03-07-2020 16:39:39 EDT by Niels Reese [place] [facility], [facility] Incoming Cardiology Results From [facility] - 03/07/2020 4:40 PM EDT [facility] Test Date: 2020-03-06 Pat Name: Chay Teague Department: Room: 453 Gender: F Access Tech: 2014 : 1945 Requested By: EMILY REESE Order Number: [id number] Reading GREG Reese Measurements Intervals [place] Rate: 95 P: 70 MI: 176 QRS: -36 QRSD: 120 T: 45 QT: 388 QTc: 488 Interpretive Statements SINUS RHYTHM PROBABLE LEFT ATRIAL ABNORMALITY IVCD, CONSIDER ATYPICAL RBBB Compared to ECG 03/06/2017 15:56:33 No significant changes Electronically Signed On 03-07-2020 16:39:39 EDT by Niels Reese [place] FOLATEon 03-07-2020 Folate 18.4 ng/mL 2.8 - 20 ng/mL [place] Hemoglobin A1con 03-07-2020 eAG 111 mg/dL [place] HbA1c (Bld) [Mass fraction] 5.5 % 4 - 5.7 % [place] Comment on above: --HgbA1C levels may not be accurate in patients who have renal disease, received recent blood transfusions, are anemic, or who have dyshemoglobinemia. Test Performed by [facility], [address], [place], [place] [address] [place] Lipid panel - fastingon 02-20 Cholesterol [Mass/Vol] 193 mg/dL <200 [place] Cholesterol in HDL [Mass/Vol] 56 mg/dL 40 - 60 mg/dL [place] Cholesterol in LDL [Mass/Vol] 107 mg/dL Abnormal <100 [place] Cholesterol.total/Chol esterol in HDL [Mass ratio] 3 {ratio} [place] Comment on above: Ref Range: < 3 Low Risk for CHD 3-6 Mod Risk for CHD > 6 High Risk for CHD Triglyceride [Mass/Vol] 148 mg/dL <150 [place] MRA head without contrast (R [facility] IMAGING OBTAIN IN THE LAST 2 yrs, to determine indication )on 03-07-2020 Patient Name: CHAY TEAGUE ---MRI--- Exam Date/Time 03/07/2020 11:13:52 EDT Exam MRA Head w/o Contrast Ordering Physician DELIA PIÑA Accession Number [id number] CPT4 Codes 51046 () Reason For Exam acute confusion Report [...] Time: 03/07/2020 12:13 pm Signed by: MD GRAICA NICHOLAS Transcribed Date and Time: 03/07/2020 12:14 [place] Jt, [facility] Incoming Radiology Results From [facility] - 03/07/2020 12:14 PM EDT Patient Name: CHAY TEAGUE ---MRI--- Exam Date/Time 03/07/2020 11:13:52 EDT Exam MRA Head w/o Contrast Ordering Physician DELIA PIÑA Accession Number [id number] CPT4 Codes 44781 () Reason For Exam acute confusion Report [...] NICHOLAS Transcribed Date and Time: 03/07/2020 12:14 [place] MRI brain with and without c ontrast (REVIEW IMAGING RECORDS IN THE LAST 2 YRS to determine INDICATION prior to oder )on 03-07-2020 Jt, [facility] Incoming Radiology Results From [facility] - 03/07/2020 12:14 PM EDT Patient Name: CHAY TEAGUE ---MRI--- Exam Date/Time 03/07/2020 11:13:30 EDT Exam MRI Brain w/ + w/o Contrast Ordering Physician DELIA PIÑA Accession Number [id number] CPT4 Codes 90463 () Reason For Exam acute confusion Report [...] NICHOLAS Transcribed Date and Time: 03/07/2020 12:14 [place] Patient Name: CHAY TEAGUE ---MRI--- Exam Date/Time 03/07/2020 11:13:30 EDT Exam MRI Brain w/ + w/o Contrast Ordering Physician DELIA PIÑA Accession Number [id number] CPT4 Codes 51039 () Reason For Exam acute confusion Report [...] NICHOLAS Transcribed Date and Time: 03/07/2020 12:14 [place] Otheron 03-07-2020 Test Performed by [facility], [address] Interpretation and review of laboratory results Abnormal [place] Test Performed by [facility], [address] [place], [address] TSH without Reflexon 020 TSH Qn 2.668 u[IU]/mL 0.465 - 4.68 u[IU]/mL [place] Test Performed by [facility], [address] [place], [address] Troponinon 03-07-2020 Troponin I.cardiac [Mass/Vol] 0.013 ng/mL 0 - 0.034 ng/mL [place] Comment on above: . Test Performed by [facility], [address] Vitamin B12on 03-07-2020 Cobalamin (Vitamin B12) [Mass/Vol] 343 pg/mL 239 - 931 pg/mL [place] Add On Lab Teston 03-06-2020 Sodium [Moles/Vol] Accepted [place] Comment on above: Specimen available & acceptable for analysis. Test Performed by [facility], [address] , [place], [place] [address] [place] Ammoniaon 03-06-2020 Ammonia (P) [Mass/Vol] 13 umol/L 9 - 3 0 umol/L [place] Test Performed by [facility], [address], [place], [place] [address] [place] Brain Natriuretic Peptideon 03-06-2020 Natriuretic peptide B (Bld) [Mass/Vol] 65 pg/mL 0 - 450 pg/mL [place] CBC Auto Differentialon 02-20 Absolute Baso # 0.1 10*3/uL 0 - 0.2 10*3/uL [place] Absolute Neut # 4.8 10*3/uL 1.8 - 7 10*3/uL [place] Basophils/100 WBC (Bld) 0.8 % 0 - 2 % [place] Eosinophils (Bld) [#/Vol] 0.3 10*3/uL 0 - 0.5 10*3/uL [place] Eosinophils/100 WBC (Bld) 3.7 % 1 - 6 % [place] Erythrocyte distribution width (RBC) [Ratio] 15.3 % High 11.5 - 14.5 % [place] Granulocytes/100 WBC (Bld) 58.5 % 40 - 80 % [place] Hematocrit (Bld) [Volume fraction] 38.6 % 35 - 47 % [place] Hemoglobin (Bld) [Mass/Vol] 13.3 g/dL 11.7 - 16 g/dL [place] Interpretation and review of laboratory results Abnormal [place] Lymphocytes (Bld) [#/Vol] 2.2 10*3/uL 1 - 4.3 10*3/uL [place] Lymphocytes/100 WBC (Bld) 27.0 % 20 - 40 % [place] MCH (RBC) [Entitic mass] 30.2 pg 26 - 34 pg [place] MCHC (RBC) [Mass/Vol] 34.5 % 32 - 36 % [place] MCV (RBC) [Entitic vol] 87.4 fL 79 - 98 fL [place] Monocytes (Bld) [#/Vol] 0.8 10*3/uL 0 - 0.8 10*3/uL [place] Monocytes/100 WBC (Bld) 10.0 % 2 - 10 % [place] Platelet mean volume (Bld) [Entitic vol] 9.1 fL 7.4 - 10.4 fL [place] Platelets (Bld) [#/Vol] 302 10*3/uL 140 - 440 10*3/uL [place] RBC (Bld) [#/Vol] 4.42 10*6/uL 3.8 - 5.2 10*6/uL [place] WBC (Bld) [#/Vol] 8.2 10*3/uL 3.6 - 10.7 10*3/uL [place] Test Performed by [facility], [address] [place] [address]. , [address] HEAD WO CONTRASTon 2019 Patient Name: CHAY TEAGUE ---CT--- Exam Date/Time 03/06/2020 13:04:[address] Head or Brain w/o Contrast Ordering Physician MD REESE GREGORY M Accession Number [id number] CPT4 Codes 69143 () Reason For Exam Altered mental status [...] JASON Transcribed Date and Time: 03/06/2020 1:13 [place] Jt, [facility] Incoming Radiology Results From [facility] - 03/06/2020 1:13 PM EDT Patient Name: CHAY TEAGUE ---CT--- Exam Date/Time 03/06/2020 13:04:[address] Head or Brain w/o Contrast Ordering Physician MD REESE GREGORY Krystal Accession Number [id number] CPT4 Codes 11890 () Reason For Exam Altered mental status [...] JASON Transcribed Date and Time: 03/06/2020 1:13 [place] Comprehensive Metabolic Pane skylar 03-06-2020 Albumin [Mass/Vol] 4.0 g/dL 3.5 - 5 g/dL [place] ALP [Catalytic activity/Vol] 135 U/L High 38 - 126 U/L [place] ALT [Catalytic activity/Vol] 27 U/L 0 - 34 U/L [place] Comment on above: The ALT test is perf ormed by an updated assay method. Please note that the reference intervals have been changed and are now sex specific. Anion gap [Moles/Vol] 8 mmol/L [place] AST [Catalytic activity/Vol] 43 U/L 15 - 46 U/L [place] Bilirubin Ql (U) 0.7 mg/dL 0.2 - 1.3 mg/dL [place] Calcium [Mass/Vol] 9.1 mg/dL 8.4 - 10. 4 mg/dL [place] Chloride [Moles/Vol] 103 mmol/L 98 - 10 7 mmol/L [place] CO2 [Moles/Vol] 29 mmol/L 22 - 30 mmol/L [place] Creatinine [Mass/Vol] 0.83 mg/dL 0.52 - 1.25 mg/dL [place] EGFR IF NonAfrican [place] 68.1 mL/min >60 [place] Comment on above: KDIGO guidelines pro [...] MDRD (S/P/Bld) [Vol rate/Area] 78.9 mL/min/{1.73_m2} >60 [place] Glucose [Mass/Vol] 116 mg/dL High 70 - 100 mg/dL [place] Interpretation and review of laboratory results Abnormal [place] Potassium [Moles/Vol] 3.1 mmol/L Low 3.5 - 5.1 mmol/L [place] Protein [Mass/Vol] 7.6 g/dL 6.3 - 8.2 g/dL [place] Sodium [Moles/Vol] 140 mmol/L 135 - 145 mmol/L [place] Urea nitrogen [Mass/Vol] 22 mg/dL High 7 - 20 mg/dL [place] Lactic Acid, Plasmaon 2019 Lactate [Moles/Vol] 1.4 mmol/L 0.7 - 2 mmol/L [place] Otheron 03-06-2020 Test Performed by [facility], [address] , [address] Test Performed by [facility], [address] , [place], [place] [address] [place] [address] Troponinon 03-06-2020 Troponin I.cardiac [Mass/Vol] ng/mL 0 - 0.034 ng/mL [place] Comment on above: . Test Performed by [facility], [address], [place], [place] [address] [place] [address] Troponin I.cardiac [Mass/Vol] ng/mL 0 - 0.034 ng/mL [place] Comment on above: . Urinalysison 03-06-2020 Appearance (U) Clear [place], [place] Comment on above: . Bacteria, UA Few (1-5) Abnormal Negative /[HPF] [place] Comment on above: . Bilirubin Urine Negative Negative mg/dL [place] Comment on above: . Color (U) LIGHT YELLOW Lt. Yellow NA [place] Comment on above: . Glucose, Ur Normal Normal (<70) mg/dL [place] Comment on above: . Interpretation and review of laboratory results Abnormal [place] Ketones Ql (U) Negative Negative mg/dL [place] Comment on above: . LEUKOCYTES, UA 250 Abnormal Negative Jennifer/uL [place] Comment on above: . Nitrite, Urine Negative Negative NA [place] Comment on above: . Non-Squamous Epithelial 0-2 Abnormal Negative /[HPF] [place] Comment on above: . Occult Blood,Urine 0.1 mg/dL Abnormal Negative [place] Comment on above: . pH (U) 5.5 [pH] [place] Comment on above: . Protein (U) [Mass/Vol] Negative Negat alli mg/dL [place] Comment on above: . RBC (U) [#/Vol] Negative 0 - 2 /[HPF] [place] Comment on above: . Specific [place], Urine 1.017 [place] Comment on above: . Squam Epithel, UA 0-2 3 - 5 /[HPF] [place] Comment on above: . Urobilinogen, Urine Normal Normal (0-1) mg/dL [place] Comment on above: . Volume 8-12 ml [place] Comment on above: . WBC, UA 3-5 0 - 5 /[HPF] [place] Comment on above: . Test Performed by [facility], [address] [place] [address] [place] XR ABDOMEN (KUB) (SINGLE AP VIEW)on 03-06-2020 Patient Name: CHAY TEAGUE ---Diagnostic Radiology--- Exam Date/Time 03/06/2020 21:54:29 EDT Exam CR Abdomen AP Ordering Physician MD LEBRON PRAMOD Accession Number [id number] CPT4 Codes 82654 () Reason For Exam abdominal pain Report EXAM: CR Abdomen AP INDICATION: Abdominal pain; left upper quadrant pain; history of gastric fundoplication VIEWS: AP COMPARISON: 10/21/2019 pelvis TIME: 21:27 FINDINGS AND IMPRESSION: The bowel gas pattern is nonspecific with moderate fecal retention. The hemidiaphragms are excluded from [id number]. Report Dictated on --- Final --- Dictating Physician: MD MCDERMOTT JENNIFER R Signed Date and Time: 03/06/2020 9:59 pm Signed by: MD MCDERMOTT JENNIFER R Transcribed Date and Time: 03/06/2020 10:01 [facility], [place], [facility] Incoming Radiology Results From [facility] - 03/06/2020 10:01 PM EDT Patient Name: CHAY TEAGUE ---Diagnostic Radiology--- Exam Date/Time 03/06/2020 21:54:29 EDT Exam CR Abdomen AP Ordering Physician MD LEBRON PRAMOD Accession Number [id number] CPT4 Codes 37213 () Reason For Exam abdominal pain Report EXAM: CR Abdomen AP INDICATION: Abdominal pain; left upper quadrant pain; history of gastric fundoplication VIEWS: AP COMPARISON: 10/21/2019 pelvis TIME: 21:27 FINDINGS AND IMPRESSION: The bowel gas pattern is nonspecific with moderate fecal retention. The hemidiaphragms are excluded from [id number]. Report Dictated on --- Final --- Dictating Physician: MD MCDERMOTT JENNIFER R Signed Date and Time: 03/06/2020 9:59 pm Signed by: MD MCDERMOTT JENNIFER R Transcribed Date and Time: 03/06/2020 10:01 [facility], [place] XR CHEST PORTABLEon 03-06-20 Jt, [facility] Incoming Radiology Results From [facility] - 03/06/2020 1:18 PM EDT Patient Name: CHAY TEAGUE ---Diagnostic Radiology--- Exam Date/Time 03/06/2020 12:50:01 EDT Exam CR Chest Portable Ordering Physician [facility] Accession Number [id number] CPT4 Codes 59999 () Reason For Exam Shortness of breath [...] JASON Transcribed Date and Time: 03/06/2020 1:18 [place] Patient Name: CHAY TEAGUE ---Diagnostic Radiology--- Exam Date/Time 03/06/2020 12:50:01 EDT Exam CR Chest Portable Ordering Physician MD REESE GREGORY M Accession Number [id number] CPT4 Codes 43155 () Reason For Exam Shortness of breath [...] JASON Transcribed Date and Time: 03/06/2020 1:18 [place] CBC Auto DifferentialOrdered By: Cynthia Urieb [...] 1 - 6 % [facility] Work Phone: [phone] Erythrocyte distribution width (RBC) [Ratio] 14.7 % High 11.5 - 14.5 % [facility] Work Phone: [phone] Granulocytes/100 WBC (Bld) 59.4 % 40 - 80 % [facility] Work Phone: [phone] Hematocrit (Bld) [Volume fraction] 42.8 % 35 - 47 % [facility] Work Phone: [phone] Hemoglobin (Bld) [Mass/Vol] 14.4 g/dL 11.7 - 16 g/dL [facility] Work Phone: [phone] Interpretation and review of laboratory results Abnormal [facility] Work Phone: [phone] Lymphocytes (Bld) [#/Vol] 2.6 10*3/uL 1 - 4.3 10*3/uL [facility] Work Phone: [phone] Lymphocytes/100 WBC (Bld) 28.6 % 20 - 40 % [employer] Work Phone: [phone] MCH (RBC) [Entitic mass] 30.7 pg 26 - 34 pg [employer] Work Phone: [phone] MCHC 33.5 % 32 - 36 % [employer] Work Phone: [phone] MCV (RBC) [Entitic vol] 91.6 fL 79 - 98 fL [facility] Work Phone: [phone] Monocytes (Bld) [#/Vol] 0.7 10*3/uL 0 - 0.8 10*3/uL [facility] Work Phone: [phone] Monocytes/100 WBC (Bld) 8.3 % 2 - 10 % [employer] Work Phone: [phone] Platelet mean volume (Bld) [Entitic vol] 9.0 fL 7.4 - 10.4 fL [employer] Work Phone: [phone] Platelets (Bld) [#/Vol] 273 10*3/uL 140 - 440 10*3/uL [employer] Work Phone: [phone] RBC (Bld) [#/Vol] 4.67 10*6/uL 3.8 - 5.2 10*6/uL [employer] Work Phone: [phone] WBC (Bld) [#/Vol] 9.0 10*3/uL 3.6 - 10.7 10*3/uL [employer] Work Phone: [phone] Test Performed by [facility], [address] , [place], [place] [address] [facility] Work Phone: [phone] Comprehensive Metabolic Pane [...] 102 mmol/L 98 - 10 7 mmol/L [facility] Work [facility]: [phone] CO2 [Moles/Vol] 29 mmol/L 22 - 30 mmol/L [facility] Work Phone: 222 Creatinine [Mass/Vol] 1.17 mg/dL 0.52 - 1.25 mg/dL [facility] Work Phone: [phone] EGFR IF NonAfrican Montserratian 44.9 mL/min >60 [facility] Work Phone: [phone] [...] [facility] Work Phone: 1 Test Performed by [facility], [address] [place] [address] [facility] Work Phone: 1 TSH without ReflexOrdered By : Cynthia Uribe on 08-31-2019 TSH 2.584 u[IU]/mL 0.465 - 4.68 u[IU]/mL [facility] Work Phone: 1 Test Performed by [facility], [address] [place], [place] [address] [facility] Work Phone: 1 Vitamin D 25 HydroxyOrdered By: Cynthia Uribe on 08-31-2019 Interpretation and review of laboratory results Abnormal [facility] Work Phone: 1 Vit D, 25-Hydroxy 26 ng/mL Low 30 - 100 ng/mL [facility] Work Phone: 1 Comment on above: Therapy is based on measurement of Total 25-OHD with the following classification levels: Less than 20 ng/mL: Indicative of Vit D deficiency 20-30 ng/mL: Suggests Vit D insufficiency Optimal: Greater than or equal to 30 ng/mL Test performed by [employer] Competitive Immunoassay, measuring Total Vitamin D, not individual fractions. Test Performed by [facility], [address], [place], [place] [address] [facility] Work Phone: [phone] TSH without Reflexon 08-27-2 019 TSH Qn 3.036 u[IU]/mL 0.465 - 4.68 u[IU]/mL [facility], [place] Test Performed by [facility], [address] , [place], [place] [address] [facility], [place] MG Breast Tomosynthesis Diag chino Righton 03-09-2019 MG Breast Tomosynthesis Diagnostic Right Patient Name: CHAY TEAGUE Mammography Exam Date/Time 03/09/2019 07:49:43 EDT Exam MG Breast Tomosynthesis Uni Ordering Physician MD JOJO, CYNTHIA Accession Number [id number] CPT4 Codes 94623 (MG Breast Tomosynthesis Right), 90046 (MG MAMMO 2D DIAGNOSTIC) Reason For Exam [...] 17, 2019, bilateral screening mammogram performed at [facility]. February 17, 2019, bilateral MG breast tomosynthesis bl scr performed at [facility]. August 18, 2017, bilateral MG breast tomosynthesis bl scr performed at [facility]. November 22, 2010, bilateral mammogram. TISSUE [...] images: BB's = Nipples; skin lesions Open [place] = Palpable Line = Scar US BREAST LIMITED RIGHT: MARCH 09, 2019 - Standard views. 2D digital mammography and tomosynthesis imaging were performed and reviewed with CAD. ASSESSMENT: Category 3 Probably benign (Overall) RECOMMENDATION: Ultrasound of the right breast in 6 months. . Report Dictated on Final Signed Date and Time: 03/09/2019 8:57 am Signed by: MD TAN KERISTEN L [facility] US Breast Limited Righton US Breast Limited Right Patient Name: CHAY TEAGUE Ultrasound Exam Date/Time 03/09/2019 08:41:27 EDT Exam US Breast Limited Right Ordering Physician MD URIBE DIANA Accession Number [id number] CPT4 Codes 26734 () Reason For Exam Other abnormal and [...] 17, 2019, bilateral screening mammogram performed at [facility]. February 17, 2019, bilateral MG breast tomosynthesis bl scr performed at [facility]. August 18, 2017, bilateral MG breast tomosynthesis bl scr performed at [facility]. November 22, 2010, bilateral mammogram. TISSUE [...] images: BB's = Nipples; skin lesions [place] = Palpable Line = Scar US BREAST LIMITED RIGHT: MARCH 09, 2019 - Standard views. 2D digital mammography and tomosynthesis imaging were performed and reviewed with CAD. ASSESSMENT: Category 3 Probably benign (Overall) RECOMMENDATION: Ultrasound of the right breast in 6 months. . Report Dictated on Final Signed Date and Time: 03/09/2019 8:57 am Signed by: MD TAN KERISTEN L Normal [facility] Basic Metabolic Panelon 12-1 Anion gap molar conc 7 Normal [facility] Comment on above: Performed By: #### H EMDF, BMP3 #### [facility] [address], [place] Calcium mass conc 8.8 mg/dL Normal 8.4-10.4 [facility] Comment on above: Performed By: #### H VILLA BMP3 #### [facility] [address], [place] CO2 molar conc 23 mmol/L Normal 22-30 [facility] Comment on above: Performed By: #### H VILLA BMP3 #### [place] [address] [address], [place] Creatinine mass conc 0.85 mg/dL Normal 0.52-1.25 [facility] Comment on above: Performed By: #### H VILLA BMP3 #### [place] [address] [address], [place] GFR/1.73 sq M predicted among blacks MDRD vol rate/area (S/P/Bld) mL/min/{1.73_m2} Normal >60 [facility] Comment on above: Performed By: #### H VILLA BMP3 #### [place] [address] [address] [place], [place] GFR/1.73 sq M predicted among non-blacks MDRD vol rate/area (S/P/Bld) mL/min/{1.73_m2} Normal >60 [facility] Comment on above: Result Comment: Sour ce- MDRD equation with creatinine calibration to IDMS(NKDEP) eGFR not recommended for drug dose adjustment Performed By: #### H VILLA BMP3 #### [facility] [address], [place] Glucose mass conc 100 mg/dL Normal 70-100 [facility] Comment on above: Performed By: #### H VILLA BMP3 #### [place] [address] [address] [place], [place] Urea nitrogen mass conc 14 mg/dL Normal 7-20 [facility] Comment on above: Performed By: #### H VILLA BMP3 #### [place] [address] [address] [place], [place] Chloride molar conc 109 mmol/L High 98-107 [facility] Comment on above: Performed By: #### H EMDF, BMP3 #### [facility] [address] [place] [address] Potassium molar conc 3.7 mmol/L Normal 3.5-5.1 [facility] Comment on above: Performed By: #### H EMDF, BMP3 #### [facility] [address] [place] [address] Sodium molar conc 140 mmol/L Normal 135-145 [facility] Comment on above: Result Comment: NOTE : New Sodium Reference Range effective 2018 @ 10:00 Performed By: #### H EMDF, BMP3 #### [facility] [address] [place] [address] CR Chest Portableon 09-08-20 18 CR Chest Portable Patient Name: CHAY TEAGUE Diagnostic Radiology Exam Date/Time 09/08/2018 16:21:12 EST Exam CR Chest Portable Ordering Physician MD ANTONI, TRA Knutson Accession Number [id number] CPT4 Codes 79576 () Reason For Exam fall Report PORTABLE [...] Transcribed Date and Time: 09/08/2018 4:57 Normal [facility] CR Wrist Complete 3 Views Le fton 09-08-2018 CR Wrist Complete 3 Views Left Patient Name: CHAY TEAGUE Diagnostic Radiology Exam Date/Time 09/08/2018 16:21:12 EST Exam CR Wrist Complete 3 Views Left Ordering Physician MD CORRALES DAVID C. Accession Number [id number] CPT4 Codes 02364 () Reason For Exam fall, open fracture [...] Transcribed Date and Time: 09/08/2018 4:[address] [facility] [address] Head or Brain w/o Contras ton 09-08-2018 CT Head or Brain w/o Contrast Patient Name: CHAY TEAGUE CT Exam Date/Time 09/08/2018 16:04:[address] Head or Brain w/o Contrast Ordering Physician MD CORRALES DAVID C. Accession Number [id number] CPT4 Codes 59853 () Reason For Exam fall, on anticoagulation [...] Transcribed Date and Time: 09/08/2018 4:[address] [facility] [address] Spine Cervical w/o Contra ston 09-08-2018 CT Spine Cervical w/o Contrast Patient Name: CHAY TAEGUE CT Exam Date/Time 09/08/2018 16:05:[address] Spine Cervical w/o Contrast Ordering Physician MD ANTONI, TRA K[place] Accession Number [id number] CPT4 Codes 46616 () Reason For Exam C-SPINE TRAUMA, NEXUS/CCR [...] Transcribed Date and Time: 09/08/2018 4:43 Normal [facility] ED Provider Noteon 8 Protein mass conc [...] capsule by mouth daily VITAMIN D (ERGOCALCIFEROL) 83233 UNITS CAPSULE Take 1 capsule by mouth [...] arranged. Patient's daughter [address] [facility] in [place]. We will give her referral to Dr. [...] Emergency Medicine Provider Tra Corrales MD 09/08/18 0633 Normal [facility] Hemogram w/ Autodiffon 09-08 Abs Baso Cnt 0.1 10*3/uL Normal 0.0-0.2 [facility] Comment on above: Performed By: #### H EMDF, BMP3 #### [facility] [address] [place] [address] Abs Neutrophile Cnt 5.8 10*3/uL Normal 1.8-7.0 [facility] Comment on above: Performed By: #### H EMDF, BMP3 #### [place] [address] [place] [address] Basophils/100 WBC (Bld) 0.7 % Normal 0.0-2.0 [facility] Comment on above: Performed By: #### H EMDF, BMP3 #### [place] [address] [place] [address] Eosinophils #/vol (Bld) 0.2 10*3/uL Normal 0.0-0.5 [facility] Comment on above: Performed By: #### H EMDF, BMP3 #### [place] [address] [place] [address] Eosinophils/100 WBC (Bld) 2.3 % Normal 1.0-6.0 [facility] Comment on above: Performed By: #### H EMDF, BMP3 #### [place] [address] [place] [address] Erythrocyte distribution width Ratio (RBC) 14.9 % High 11.5-14.5 [facility] Comment on above: Performed By: #### H EMDF, BMP3 #### [place] [address] [place] [address] Granulocytes/100 WBC (Bld) 69.6 % Normal 40.0-80.0 [facility] Comment on above: Performed By: #### H EMDF, BMP3 #### [place] [address] [place] [address] Hematocrit Volume Fraction (Bld) 41.2 % Normal 35.0-47.0 [facility] Comment on above: Performed By: #### H EMDF, BMP3 #### [place] [address] [place] [address] Hemoglobin mass conc (Bld) 13.5 g/dL Normal 11.7-16.0 [facility] Comment on above: Performed By: #### H EMDF, BMP3 #### [facility] [address], [place] Lymphocytes #/vol (Bld) 1.7 10*3/uL Normal 1.0-4.3 [facility] Comment on above: Performed By: #### H EMDF, BMP3 #### [facility] [address], [place] Lymphocytes/100 WBC (Bld) 20.5 % Normal 20.0-40.0 [facility] Comment on above: Performed By: #### H EMDF, BMP3 #### [facility] [address], [place] MCH Entitic mass (RBC) 30.8 pg Normal 26.0-34.0 [facility] Comment on above: Performed By: #### H EMDF, BMP3 #### [facility] [address], [place] MCHC mass conc (RBC) 32.9 % Normal 32.0-36.0 [facility] Comment on above: Performed By: #### H EMDF, BMP3 #### [facility] [address], [place] MCV Entitic volume (RBC) 93.6 fL Normal 79.0-98.0 [facility] Comment on above: Performed By: #### H EMDF, BMP3 #### [facility] [address], [place] Monocytes #/vol (Bld) 0.6 10*3/uL Normal 0.0-0.8 [facility] Comment on above: Performed By: #### H EMDF, BMP3 #### [facility] [address], [place] Monocytes/100 WBC (Bld) 6.9 % Normal 2.0-10.0 [facility] Comment on above: Performed By: #### H EMDF, BMP3 #### [facility] [address], [place] Platelet mean volume Entitic volume (Bld) 9.0 fL Normal 7.4-10.4 [facility] Comment on above: Performed By: #### H EMDF, BMP3 #### [facility] [address] [place] [address] Platelets #/vol (Bld) 212 10*3/uL Normal 140-440 [facility] Comment on above: Performed By: #### H EMDF, BMP3 #### [facility] [address] [place] [address] RBC #/vol (Bld) 4.40 10*6/uL Normal 3.80-5.20 [facility] Comment on above: Performed By: #### H EMDF, BMP3 #### [facility] [address] [place] [address] WBC #/vol (Bld) 8.4 10*3/uL Normal 3.6-10.7 [facility] Comment on above: Performed By: #### H EMDF, BMP3 #### [facility] [address] [place] [address] CNCOon 09-02-2017 CNCO Letter Uri damon [address] [place], [place] [address]Sjncq: [phone]: [phone]: 09/02/2017Provider: Hayley Geronimo,We have received a referral [...] you to please call our office at [phone], option 5 and we willassist you in scheduling your exam.Sincerely,Clifford Crane MD Normal [facility] Vital Signs Date Time Vital Sign [...] 08:35-0400 Pulse Oximetry 94 % Emily Reese [facility] , [place] 03-09-2020 08:26-0400 Body Temperature 97.9 [degF] Emily Reese [facility], [place] 03-09-2020 08:26-0400 BP Diastolic 90 mm[Hg] Emily Reese [facility] , [place] 03-09-2020 08:26-0400 BP Systolic 146 mm[Hg] Emily Dennis [facility] , [place] 03-09-2020 08:26-0400 Pulse (Heart Rate) 90 /min Emily Dennis [facility] [place], [place] 03-09-2020 08:26-0400 Respiratory Rate 18 /min Emily Dennis [facility], [place] 03-06-2020 17:21-0400 BMI (Body Mass Index) 35.43 kg/m2 Emily Dennis [facility], [place] 03-06-2020 17:21-0400 Body weight 90.72 kg [facility] [place] Comment on above: per 08/2019 office visit 03-06-2020 17:21-0400 Height 160 cm [facility] [place] Comment on above: per 08/2019 office [...] Facility Start: 08-01-2025 ambulatory Saurabh Jim Garcia ty:[facility] Start: 05-26-2025 ambulatory Saurabh Jim Garcia ty:[facility] Start: 05-09-2025 ambulatory Saurabh Jim Garcia ty:[facility] Start: 04-08-2025 ambulatory Saurabh MANJARREZ Facili ty:[facility] Start: 03-03-2025 ambulatory Saurabh MANJARREZ Facili ty:[facility] Start: 02-16-2025 ambulatory Saurabh MANJARREZ Facili ty:[facility] Start: 12-09-2024 End: 12-09-2024 ambulatory Saurabh Fernandez MD [facility] Work Phone: Start: 12-09-2024 End: 12-09-2024 Departed Referred Saurabh Fernandez [facility] Start: 12-09-2024 Registered Referred Saurabh Fernandez MD [facility] Start: 12-09-2024 End: 12-09-2024 ambulatory Saurabh MANJARREZ Facility:[facility] Start: 11-22-2024 End: 11-22-2024 ambulatory Saurabh Fernandez MD [facility] Work Phone: Start: 11-22-2024 End: 11-22-2024 Departed Referred Saurabh Fernandez MD [facility] Start: 11-22-2024 Registered Referred Saurabh Fernandez MD [facility] Start: 11-22-2024 End: 11-22-2024 ambulatory Saurabh MANJARREZ Facility:[facility] Start: 11-17-2024 End: 11-17-2024 ambulatory Saurabh Fernandez MD [facility] Work Phone: Start: 11-17-2024 End: 11-17-2024 Departed Referred Saurabh Fernandez MD [facility] Start: 11-17-2024 End: 11-17-2024 ambulatory Saurabh MANJARREZ Facility:[facility] Start: 11-10-2024 ambulatory Saurabh MANJARREZ Facili ty:[facility] Start: 11-10-2024 Registered Referred Saurabh Fernandez MD [facility] Start: 09-16-2024 ambulatory Saurabh MANJARREZ Facili ty:[facility] Start: 09-16-2024 Registered Referred Saurabh Fernandez [facility] Start: 08-30-2024 End: 08-30-2024 Departed Referred Saurabh Fernandez MD [facility] Start: 08-30-2024 End: 08-30-2024 ambulatory Saurabh MANJARREZ Facility:[facility] Start: 08-09-2024 End: 08-09-2024 ambulatory Saurabh MANJARREZ Facility:[facility] Start: 10-16-2023 End: 10-16-2023 ambulatory [facility] Work Phone: Start: 10-16-2023 End: 10-16-2023 Departed Referred [facility] Start: 09-29-2023 End: 09-29-2023 ambulatory [facility] Work Phone: Start: 09-29-2023 End: 09-29-2023 Departed Referred [facility] Start: 09-01-2023 End: 09-01-2023 ambulatory [facility] Work Phone: Start: 09-01-2023 End: 09-01-2023 Departed Referred [facility] Start: 07-24-2023 End: 07-24-2023 ambulatory [facility] Work Phone: Start: 07-24-2023 End: 07-24-2023 Departed Referred [facility] Start: 06-30-2023 End: 06-30-2023 ambulatory [facility] Work Phone: Start: 06-30-2023 End: 06-30-2023 Departed Referred [facility] Start: 05-01-2023 End: 05-01-2023 ambulatory [facility] Work Phone: Start: 05-01-2023 End: 05-01-2023 Departed Referred [facility] Start: 04-07-2023 End: 04-07-2023 ambulatory [facility] Work Phone: Start: 04-07-2023 End: 04-07-2023 Departed Referred [facility] Start: 02-06-2023 End: 02-06-2023 Departed Referred [facility] Start: 01-13-2023 End: 01-13-2023 ambulatory [facility] Work Phone: Start: 01-13-2023 End: 01-13-2023 Departed Referred [facility] Start: 11-14-2022 End: 11-14-2022 ambulatory [facility] Work Phone: Start: 11-14-2022 End: 11-14-2022 Departed Referred [facility] Start: 11-14-2022 Registered Referred [facility] Start: 10-21-2022 End: 10-21-2022 ambulatory [facility] Work Phone: Start: 10-21-2022 End: 10-21-2022 Departed Referred [facility] Start: 08-23-2022 End: 08-23-2022 ambulatory [facility] Work Phone: Start: 08-23-2022 End: 08-23-2022 Departed Referred [facility] Start: 08-23-2022 Registered Referred [facility] Start: 08-22-2022 End: 08-22-2022 ambulatory [facility] Work Phone: Start: 08-22-2022 End: 08-22-2022 Departed Referred [facility] Start: 08-22-2022 Registered Referred [facility] Start: 07-29-2022 End: 07-29-2022 ambulatory [facility] Work Phone: Start: 07-29-2022 End: 07-29-2022 Departed Referred [facility] Start: 07-29-2022 Registered Referred [facility] Start: 07-24-2022 End: 07-24-2022 ambulatory [facility] Work Phone: Start: 07-24-2022 End: 07-24-2022 Departed Referred [facility] Start: 06-06-2022 End: 06-24-2022 Evaluation and management of inpatient JOHN MCDONALDLAMONT Facility:[facility] Start: 06-05-2022 End: 06-06-2022 Emergency department patient visit CYNTHIA URIBE Facility:[facility] Start: 06-05-2022 Ad[facility] to [facility] 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[employer] 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: [facility] Start: 06-05-2022 ambulatory Mundo conley 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 [employer] Work Phone: Behavioral Health Intake Comment on above: Psychiatric Problem Start: 08-30-2021 Chart Update Referring Prov ider [facility] Work Phone: Start: 08-29-2021 Office outpatient vi sit 15 minutes Referring Provider Unknown [facility] Work Phone: Start: 05-10-2021 End: 05-10-2021 Subsequent hospital visit by physician Cynthia Uribe MD Work Phone: [facility] Comment on above: Vitamin D deficiency ; Recurrent depression (HCC); Essential hypertension; Other specified hypothyroidism; Mild intermittent asthma without complication Start: 11-02-2020 End: 11-02-2020 Emergency department patient visit Jame Farfan Nasir Work Phone: [facility] ED Comment on above: Altered mental statu s, unspecified altered mental status type (Primary Dx); Shortness of breath; Lower extremity edema; Abdominal pain, right lower quadrant; Gallstones Start: 03-06-2020 End: 03-09-2020 Evaluation and management of inpatient Emily Reese Work Phone: [facility] Comment on above: Delirium (Primary [...] Pelvi s W contrast IV Jame A [employer] Work Phone: Start: 11-02-2020 Ct angiography chest w/contrast/noncontrast Jame [facility] [employer] Work Phone: Start: 11-02-2020 Ct head/brain w/o co ntrast material Jame [facility] [employer] Work Phone: Start: 11-02-2020 Assay of lactate Jame [facility] [employer] Work Phone: Start: 11-02-2020 Assay of troponin quantitative Jame [facility] [employer] Work Phone: Start: 11-02-2020 Blood count complete auto&auto difrntl wbc Jame [facility] [employer] Work Phone: Start: 11-02-2020 Comprehensive metabo lic panel Jame A [employer] Work Phone: Start: 11-02-2020 COVID-19, RAPID Jame A [employer] Work Phone: Start: 11-02-2020 Natriuretic peptide Tyl er A [employer] Work Phone: Start: 11-02-2020 Prothrombin time Jame A [employer] Work Phone: Start: 11-02-2020 Ecg routine ecg w/le ast 12 lds w/i&r Jame A [employer] Work Phone: Start: 03-07-2020 Mri brain brain [...] Author Start: 06-05-2025 DIABETES SCREEN DIABETES SCREEN [facility] Start: 05-23-2022 Influenza vaccination INFLUENZA (#1) [facility] Start: 05-10-2022 Creatinine measurement Creatinine mo nitoring [facility] Work Phone: Start: 05-10-2022 Potassium monitoring Potassium monit oring [employer] Work Phone: Start: 02-11-2022 Creatinine measurement Creatinine mo nitoring [facility] Work Phone: Start: 11-02-2021 Potassium monitoring Potassium monit oring [facility] Work Phone: Start: 09-22-2021 ADVANCE DIRECTIVE DISCUSSION ADVANCE DIRECTIVE DISCUSSION [facility] Start: 09-10-2021 End: 09-10-2021 Telemedicine consultation with patient 09/10/2021 Telemedicine Family Medicine Cynthia Uribe MD [address] [place] [id number] [facility] Start: 05-23-2021 Influenza vaccination Flu vaccine (# 1) [employer] Work Phone: Start: 03-07-2021 Creatinine measurement Creatinine mo [place] Start: 03-07-2021 Potassium monitoring Potassium monit [place], [place] Start: 08-31-2020 Creatinine monitoring Creatinine mon [facility] Work Phone: Start: 08-31-2020 Potassium [facility] Work [facility]: Start: 05-23-2020 Influenza vaccination Flu vacc ine (Season Ended) [place], [place] Start: 11-09-2019 Creatinine monitoring Creatinine mon [place], [place] Start: 11-09-2019 Potassium monitoring Potassium monit [place], [place] Start: 05-23-2019 Influenza vaccination Flu vaccine (# 1) [place] Start: 03-09-2019 Annual Wellness Visi t (AWV) Annual Wellness Visit (AWV) [facility] Work Phone: Start: 2008 BONE DENSITY BONE DENSITY [facility] Start: 2008 DEXA (modify frequen cy per FRAX score) DEXA (modify frequency per FRAX score) [place] Start: 2008 PNEUMOCOCCAL: 65+ (1 - PCV) PNEUMOCOCCAL: 65+ (1 - PCV) [facility] Start: 2006 Annual Wellness Visi t (AWV) Annual Wellness Visit (AWV) [place] Start: 07-25-1998 Screening for osteoporosis DEXA (modify frequency per FRAX score) [place] Start: 1993 Shingles Vaccine (1 of 2) Shingles Vaccine (1 of 2) [place], [place] Start: 1993 SHINGRIX VACCINE (1 of 2) SHINGRIX VACCINE (1 of 2) [facility] Start: 1962 DTaP/Tdap/Td vaccine (1 - Tdap) DTaP/Tdap/Td vaccine (1 - Tdap) [place], [place] Start: 1962 Urine microalbumin profile DTAP,TDAP,TD (1 - Tdap) [facility] Start: 1959 COVID-19 Vaccine (1 of 2) COVID-19 Vaccine (1 of 2) [employer] Work Phone: Start: 1954 DTaP/Tdap/Td vaccine (1 [...] for 1 Occurrences starting 11/02/2020 until 11/02/2020 [employer] Work Phone: Comment on above: One Time for 1 Occur rences starting 11/02/2020 until 11/02/2020 End: 11-02-2020 CT Abdomen and Pelvis W contrast IV CT Abdomen Pelvis W Contrast Imaging STAT Once for 1 Occurrences starting 11/02/2020 until 11/02/2020 [employer] Work Phone: Comment on above: Once for 1 Occurrenc es starting 11/02/2020 until 11/02/2020 End: 11-02-2020 CTA Chest W WO (PE study) CTA Chest W WO (PE study) Imaging STAT Once for 1 Occurrences starting 11/02/2020 until 11/02/2020 [employer] Work Phone: Comment on above: Once for 1 Occurrenc es starting 11/02/2020 until 11/02/2020 Culture, Blood [facility], [place] End: 11-02-2020 Culture, Blood 1 Culture, Blood 1 Microbiology STAT One Time for 1 Occurrences starting 11/02/2020 until 11/02/2020 [employer] Work Phone: Comment on above: One Time for 1 Occur rences starting 11/02/2020 until 11/02/2020 Culture, Blood 2 [facility] [place] [place] End: 11-02-2020 Culture, Blood 2 Culture, Blood 2 Microbiology STAT One Time for 1 Occurrences starting 11/02/2020 until 11/02/2020 [employer] Work Phone: Comment on above: One Time for 1 Occur rences starting 11/02/2020 until 11/02/2020 EKG 12 Lead - Chest Pain EKG 12 Lead - Chest Pain ECG STAT 11/02/2020 1:34 PM EST [employer] Work Phone: End: 11-02-2020 Hemogram (CBC) w/Auto Diff Hemogram (CBC) w/Auto Diff Lab STAT One Time for 1 Occurrences starting 11/02/2020 until 11/02/2020 [employer] Work Phone: Comment on above: One Time for 1 Occur rences starting 11/02/2020 until 11/02/2020 Initiate Oxygen Ther apy Protocol Initiate Oxygen Therapy Protocol Respiratory Care Routine Daily until discontinued starting 03/06/2020 [facility], [place] Comment on above: Daily until disconti nued starting 03/06/2020 End: 11-02-2020 Lactic Acid, Plasma [employer] Work Phone: Comment on above: One Time for 1 Occur rences starting 11/02/2020 until 11/02/2020 End: 11-02-2020 Miscellaneous Sendout 1 [employer] Work Phone: Comment on above: One Time [...] influenza, high dose seasonal, preservative-free Cynthia Uribe [place], [place] 08-07-2017 influenza, high dose seasonal, preservative-free Cynthia Calistacalebmarcelinarina [facility], [place] 03-26-2017 pneumococcal polysaccharide vaccine, 23 valent [facility] [place] 11-11-2016 pneumococcal conjuga te vaccine, 13 valent [facility] [place] 10-16-2016 influenza, high dose seasonal, preservative-free Cynthia Uribe MD Work Phone: ANTON Work Phone: Payers Date Payer Category Payer Self-pay 2021 Medicaid [place] [employer] [facility] MEDICAID [id number] 2021-Present [phone] [address] [place] [address] Medicaid [id number] 2021 Medicare [place] [employer] MYCARE [place] [employer] [id number] 2021-Present [phone] [address] [place] [address] Medicare [id number] 2021 Medicare [id number] 2021 Unknown [id number] 2017 Unknown BCBS [employer] MEDI CARE SUPP xxxxxxxxxxxx 2017-Present [address] [place] [address] xxxxxxxxxxxx [id number] 2017 Unknown [employer] MEDI CARE SUPP [id number] 2017-Present [address] [place] [address] [id number] 2014 Medicare MEDICARE MEDICAR E PART A AND B xxxxxxxxxxx 2014-Present [phone] [place] [address] xxxxxxxxxxx [id number] 2014 Medicare [id number] Unknown Unknown [id number] Unknown [id number] Unknown [id number] Unknown [id number] Unknown [id number] Unknown [id number] Unknown [id number] Unknown [id number] Unknown [id number] Unknown [id number] Unknown [id number] Unknown [id number] Unknown [id number] Unknown [id number] Social History Date Type Detail Facility Start: 08-31-2019 End: 03-07-2020 Tobacco smoking status [facility] End: 09-22-1984 History of tobacco use [facility] End: 09-22-1984 History of tobacco use Cigarette Smoker [facility] [place] Start: 08-31-2019 End: 03-07-2020 Alcohol intake Current non-drinker of alcohol (finding) [employer] Work Phone: Start: 1945 [facility] Start: 11-02-2020 End: 05-10-2021 Tobacco use and exposure Never used [employer] Work Phone: Start: 05-26-2022 End: 06-05-2022 Exposure to SARS-CoV-2 (event) Not sure [employer] Work Phone: Start: 11-09-2018 Alcohol intake No [facility] [place] Former smoker Former smoker [facility] Work Phone: Start: 06-05-2022 Tobacco smoking status [facility] Tobacco smoking consumption unknown [facility] Start: 1945 Sex Assigned At Female [facility] Start: 12-23-2024 End: 12-23-2024 Sex Female (finding) [facility] NEGATED: Highlighted row - - [facility] [...] Work Phone: Clinical Notes 08-28-2021 to 06-24-20[facility] - JACINTO Castro - 06/05/2022 11:39 PM EDT Note Date & Type Note Facility 06-24-2022 Note HNO ID: [id number] Author: LATRICE Munoz Service: Social Work Author Type: [employer] Type: Plan of Care Filed: 06/24/2022 1:44 [...] 06/28/22 Progress Towards Short Term Goals: Progressing Senior Developer Goals: Patient will have improved insight into illness;Patient will have achieved optimal level of functioning;Patient will verbalize benefits of compliance with medication and treatment after discharge Target Date Senior Developer Goals: 07/01/22 Progress Towards Nursing Home Goals: Progressing Interventions - Nursing: Offer [...] 06/27/22 Progress Towards Short Term Goals: Progressing Senior Developer Goals: Patient will demonstrate optimal level of functioning;Patient/support system will verbalize intent to comply with medication and treatment after discharge;Patient expresses examples of optimism and hope for the future Target Date Nursing Home Goals: 06/29/22 Progress Towards Nursing Home Goals: Progressing Interventions - Nursing: Obtain baseline [...] to build insig (more content not included)... [facility] 06-24-2022 Note HNO ID: [id number] Author: Robyn Roman RN Service: Psychiatry Author [...] 06/26/22 Progress Towards Short Term Goals: Progressing Senior Developer Goals: Patient will have improved insight into illness;Patient will have achieved optimal level of functioning;Patient will verbalize benefits of compliance with medication and treatment after discharge;Patient will participate in cognitive, physical and social activities;Patient will display nonviolent behavior towards others, with aid of medication and supportive therapy Target Date Nursing Home Goals: 06/28/22 Progress Towards Nursing Home Goals: Progressing Interventions - Nursing: Offer [...] grounding techniques and (more content not included)... [facility] 06-24-2022 Note HNO ID: [id number] Author: John Penny MD Service: Psychiatry Author [...] Will continue to monitor." P Krystal Snider [employer] most recent and updated notes is reviewed. [...] Date Value 05/23 (more content not included)... [facility] 06-23-2022 Note HNO ID: [id number] Author: Trisha Mcgill MD Service: Psychiatry Author [...] DATE: June 23, 2022 TIME: 8:22 PM [facility] 06-21-2022 Note HNO ID: [id number] Author: Trisha Mcgill MD Service: Psychiatry Author [...] DATE: June 21, 2022 TIME: 9:24 PM [facility] 06-21-2022 Note HNO ID: [id number] Author: Teo López RN Service: Behavioral Health [...] 06/26/22 Progress Towards Short Term Goals: Progressing Senior Developer Goals: Patient will have improved insight into illness;Patient will have achieved optimal level of functioning;Patient will verbalize benefits of compliance with medication and treatment after discharge;Patient will participate in cognitive, physical and social activities;Patient will display nonviolent behavior towards others, with aid of medication and supportive therapy Target Date Senior Developer Goals: 06/28/22 Progress Towards Nursing Home Goals: Progressing Interventions - Nursing: Offer [...] constructive activities to (more content not included)... [facility] 06-19-2022 Note HNO ID: [id number] Author: Trisha Mcgill MD Service: Psychiatry Author [...] DATE: June 19, 2022 TIME: 11:54 PM [facility] 06-19-2022 Note HNO ID: [id number] Author: Teo López RN Service: Behavioral Health [...] 06/26/22 Progress Towards Short Term Goals: Progressing Senior Developer Goals: Patient will have improved insight into illness;Patient will have achieved optimal level of functioning;Patient will participate in cognitive, physical and social activities;Patient will display nonviolent behavior towards others, with aid of medication and supportive therapy;Patient will verbalize benefits of compliance with medication and treatment after discharge Target Date Nursing Home Goals: 06/28/22 Progress Towards Senior Developer Goals: Progressing Interventions - Nursing: Offer frequent [...] promote grounding techniques (more content not included)... [facility] 06-17-2022 Note HNO ID: [id number] Author: Trisha Mcgill MD Service: Psychiatry Author [...] DATE: June 17, 2022 TIME: 11:51 PM [facility] 06-17-2022 Note HNO ID: [id number] Author: Melisa Peña RN Service: Behavioral Health [...] 06/17/22 Progress Towards Short Term Goals: Progressing Nursing Home Goals: Patient will have improved insight into illness;Patient will have achieved optimal level of functioning;Patient will verbalize benefits of compliance with medication and treatment after discharge;Patient will participate in cognitive, physical and social activities Target Date Senior Developer Goals: 06/19/22 Progress Towards Nursing Home Goals: Progressing Interventions - Nursing: Offer [...] as needed;Offer constructive (more content not included)... [facility] 06-15-2022 Note HNO ID: [id number] Author: Trisha Mcgill MD Service: Psychiatry Author [...] DATE: June 15, 2022 TIME: 11:54 PM [facility] 06-14-2022 Note HNO ID: [id number] Author: John Penny MD Service: Psychiatry Author [...] pudding. " [facility] [employer] most recent and updated notes is reviewed. Pt sleep remains poor, during the day she is visible on unit but confused. She frequently slaps table with open palm and calls out for help for no obvious reason. Pt continues to appear somewhat guarded and distrusting of everyone except on of her daughters. Daughter was able to complete enrollment for [facility] dual advantage, effective date 06/22/22. SW [...] of which s (more content not included)... [facility] 06-13-2022 Note HNO ID: [id number] Author: John Penny MD Service: Psychiatry Author [...] to direct. , nonsensical speech." Scarlett Snider [employer] most recent and updated notes is reviewed. SW faxed clinicals to [facility]. director of operations informed SW that they are not in [...] spend in counseling (more content not included)... [facility] 06-12-2022 Note HNO ID: [id number] Author: Iva Bailey RN Service: Behavioral Health [...] 06/17/22 Progress Towards Short Term Goals: Progressing Nursing Home Goals: Patient will have improved insight into illness;Patient will have achieved optimal level of functioning;Patient will verbalize benefits of compliance with medication and treatment after discharge;Patient will participate in cognitive, physical and social activities Target Date Senior Developer Goals: 06/19/22 Progress Towards Nursing Home Goals: Progressing Interventions - Nursing: Offer [...] schedule and encou (more content not included)... [facility] 06-12-2022 Note HNO ID: [id number] Author: John Penny MD Service: Psychiatry Author [...] day area." [facility] [employer] most recent and updated notes is reviewed. SW received return call from [facility] in admissions at [facility]. She states that Pt would be coming LTC and would need a PAS (ASHLEY submitted for one and received favorable determination). She provided fax: [phone] for clinical information and her work cell for updates: [phone]. SW to send updated information. " Medical [...] spend in c (more content not included)... [facility] 06-11-2022 Note HNO ID: [id number] Author: John Penny MD Service: Psychiatry Author [...] at times, observed patting other Patient's knee. Investment Specialist redirected Patient and educated on appropriate behavior. Patient cooperative with teaching. Med compliant whole in applesauce, but did spit out Colace gel capsule several times due to confusion." P Krystal F Dolores H [employer] most recent and updated notes is reviewed. ASHLEY placed call to [facility] admission department. ASHLEY informed admission director [...] of which s (more content not included)... [facility] 06-10-2022 Note HNO ID: [id number] Author: Melisa Peña RN Service: Behavioral Health [...] 06/10/22 Progress Towards Short Term Goals: Progressing Senior Developer Goals: Patient will have improved insight into illness;Patient will have achieved optimal level of functioning;Patient will verbalize benefits of compliance with medication and treatment after discharge;Patient will participate in cognitive, physical and social activities;Patient will display nonviolent behavior towards others, with aid of medication and supportive therapy Target Date Senior Developer Goals: 06/14/22 Progress Towards Nursing Home Goals: Progressing Interventions - Nursing: Offer [...] 06/06/22 Time Initiat (more content not included)... [facility] 06-10-2022 Note HNO ID: [id number] Author: John Penny MD Service: Psychiatry Author [...] good results." [facility] [employer] most recent and updated notes is reviewed. [...] FROM THE CHART OR MODIFY PRINTED COPY. [facility] 06-09-2022 Note HNO ID: [id number] Author: Beba Bray MD Service: ? Author [...] DATE: June 09, 2022 TIME: 1:07 PM [facility] 06-09-2022 Note HNO ID: [id number] Author: John Penny MD Service: Psychiatry Author [...] -pleasantly confused [facility] [employer] most recent and updated notes is reviewed. [...] FROM THE CHART OR MODIFY PRINTED COPY. [facility] 06-09-2022 Note HNO ID: [id number] Author: Interface Note Service: ? Author Type: ? Type: Progress Notes Filed: 06/09/2022 1:02 PM Note Text: Epic Scheduled Downtime: 06/09/2022 1:00:00 AM to 06/09/2022 2:07:00 AM [facility] 06-08-2022 Note HNO ID: [id number] Author: Beba Bray MD Service: ? Author [...] DATE: June 08, 2022 TIME: 12:08 PM [facility] 06-08-2022 Note HNO ID: [id number] Author: John Penny MD Service: Psychiatry Author [...] in applesauce" [facility] [employer] most recent and updated notes is reviewed. Pt discussed in treatment team and observed on unit. Pt does appear more alert and organized than on previous day. She will remain inpatient through the weekend. SW to submit PAS on Friday (06/10/22) and follow units with [facility] with updated clinical information" Medical comorbidity [...] FROM THE CHART OR MODIFY PRINTED COPY. [facility] 06-08-2022 Note HNO ID: [id number] Author: Interface Note Service: ? Author Type: ? Type: Progress Notes Filed: 06/08/2022 3:51 AM Note Text: Epic Scheduled Downtime: 06/08/2022 1:00:00 AM to 06/08/2022 3:36:00 AM [facility] 06-07-2022 Note HNO ID: [id number] Author: Teo López RN Service: Behavioral Health [...] 06/10/22 Progress Towards Short Term Goals: Progressing Senior Developer Goals: Patient will have improved insight into illness;Patient will have achieved optimal level of functioning;Patient will verbalize benefits of compliance with medication and treatment after discharge;Patient will participate in cognitive, physical and social activities;Patient will display nonviolent behavior towards others, with aid of medication and supportive therapy Target Date Nursing Home Goals: 06/14/22 Progress Towards Senior Developer Goals: Progressing Interventions - Nursing: Offer frequent [...] Mood Disorder As (more content not included)... [facility] 06-07-2022 Note HNO ID: [id number] Author: John Penny MD Service: Psychiatry Author [...] meals. " [facility] [employer] most recent and updated notes is reviewed. Daughter states that Pt has not responded well to Haldol in the past. She states that Pt was on waitlist for [facility] but following this episode they are willing to take her once stabilized. Daughter is agreeable to SW reaching out and sharing clinical information with ECF as needed. SW to follow with continued collateral contact and discharge planning as Pt's mental status improves. SW to submit PAS and send [facility] clinical updates once Pt is stabilized." [...] frontal lobe dementi (more content not included)... [facility] 06-06-2022 Note HNO ID: [id number] Author: John Penny MD Service: Psychiatry Author Type: Physician Type: Progress Notes Filed: 06/06/2022 7:00 AM Note Text: HANDP dictated # [id number] JOHN PENNY MD 06/06/2022 [facility] 06-05-2022 Miscellaneous Notes BEHAVIORAL HEALTH INTAKE NOTE SERVICE DATE: 06/06/2022 SERVICE TIME: 12:08AM Nature of the crisis: Confusion Presenting Problem: Chay Teague is a 77 year old female brought in to [facility] from Home by family for confusion. Pt [...] not steal the car back for her. Investment Specialist attempted interview with pt telephonically. It was [...] information obtained from pt's daughter, Jennifer Hidalgo ([phone]). Daughter reports that pt has underlying dementia, [...] with pt being on the waitlist at [facility]. PAST MEDICAL HISTORY: PAST MEDICAL HISTORY [...] to report How Legal Issues Were Verified: [facility] Manager Mac of Courts Website;[employer] [employer] Sex Offender Website;[facility] Sexual Offender Website Gender Specific Test: [...] in interview due to pt symptomatology. Other Reroller Hand Described Mood: Pt is calm and cooperative, but not interviewable Reroller Hand: MADELINE Hill Observed/Reported: Other: See Comment (Unable to assess.) Range of Affect: (Unable to assess.) Sleep: (Unable to assess.) Appetite: (Unable to assess.) Energy: (Unable to assess.) Anxiety/Trauma: (Unable to assess.) Non-Suicidal Self Injury Non-Suicidal Self Injury: (Unable to assess.) Suicidal Ideation Suicidal Ideation: (Pt's daughter denies hearing pt make mention of any SI. Investment Specialist is unable to assess with pt directly.) Homicidal Ideation Homicidal Ideation: (Pt's daughter denies hearing pt make mention of any SI. Investment Specialist is unable to assess with pt directly.) Non-Lethal Harm to Others or Damage/Destruction to Property Harm to Others or Damage/Destruction of Property: (Pt's daughter denies hearing pt make mention of any SI. Investment Specialist is unable to assess with pt directly.) [...] John Penny Admission Status: Full Admit Unit: [address] Bed#: [id number] Report Given To: Vitaliy Report Date: 06/06/22 Report Time: 223 Admission Type: Medical Certificate SIGNATURE: JACINTO Castro PATIENT NAME: Chay Teague DATE: June 05, 2022 TIME: 11:39 PM documented in this encounter [facility] 11-10-2021 Note Hospitalist Discharg e Summary [...] follow the di (more content not included)... [facility] 08-28-2021 History of Presen t illness Narrative [...] more off balance than her normal. [facility] Work Phone: Evaluation note Diagnosis Vitamin D deficiency Unspecified vitamin D deficiency Recurrent depression (HCC) Major depressive disorder, recurrent episode, unspecified Essential hypertension Unspecified essential hypertension Other specified hypothyroidism Mild intermittent asthma without complication Unspecified asthma documented in this encounter [facility] Work Phone: Evaluation note* Diagnosis Vitamin D deficiency Unspecified vitamin D deficiency Other specified hypothyroidism documented in this encounter [facility] [employer] Phone: Evaluation note* Diagnosis Dementia, senile with delusions, with behavioral disturbance (HCC)- Primary [facility] noteNo assessment information availableWGrand [facility] Work Phone: Reason for referral (narrative)No reason for referral information availableWGrand Lake [facility] Work Phone: Summary Purpose Family History No Family History Records FoundNo Family History Records FoundNo Family History Records FoundNo Family History Records FoundNo Family History Records FoundNo Family History Records FoundNo Family History Records FoundNo Family History Records FoundNo Family History Records FoundNo Family History Records Found Advance Directives No Advanced Directives Records FoundDocuments on File Type Date Recorded 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 Advance Directives and Living Will Advance Directives and Living Will 03/14/2017 10:57 AM Power of Supervisor [employer] 11/09/2018 4:07 PM JEAN PIERRE Hidalgo Latest Code Status on File Code Status Date Activated Date Inactivated Comments DNR-CCA 03/06/2020 5:15 PM DNR-CCA 03/06/2017 8:30 PM 03/09/2017 4:35 PM Documents on File Type Date Recorded 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 ACP-Advance Directive ACP-Advance Directive 03/14/2017 10:57 AM ACP-Power of Supervisor [employer] 11/09/2018 4:07 PM Scarlett Hidalgo Latest Code Status on File Code Status Date Activated Date Inactivated Comments DNR-CCA 03/06/2020 5:15 PM 03/09/2020 3:12 PM Latest Code Status on File Code Status Date Activated Date Inactivated Comments DNR-CCA 03/06/2017 8:30 PM 03/09/2017 4:35 PM Documents on File Type Date Recorded 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 Your home care will be provided by: [facility] [phone] * Additional Instructions* John Coe MD - 03/06/2020 Only take the Effexor; Stop taking the Aricept and Buspar; I put in a number for a Warehouse Driver if you wish to have the abscess looked at critical access hospitalirene Ashraf Learning About Delirium What is delirium? [...] Where can you learn more? Go to [email or web address] and sign in to your [employer] account. Enter Z511 in the Search Health Information box to learn more about Learning About Delirium. If you do not have an account, please click on the "Sign Up Now" link. Current as of: October 22, 2019 Content Version: 12. [employer] Care instructions adapted under license by [employer]. If you have questions about a medical condition or this instruction, always ask your healthcare professional. [employer] disclaims any warranty or liability for your [...] and the need for follow-up with a physician/AUTOMATION TECHNICIAN/PA after discharge. Discussed the patient s personal [...] 03/09/2020 9:32 AM EDT Occupational Therapy Facility/Department: [facility] 4S TELEMETRY Daily Treatment Note NAME: Chay Teague : 1945 Date of Service: 03/09/2020 Discharge Recommendations: Subacute/Longterm Facility Assessment Performance deficits / Impairments: Decreased [...] - 03/08/2020 3:24 PM EDT Discussed with PROCESS MAINTENANCE TECHNICIAN- pt advanced to Dental soft and is appropriate for thin liquids at this time. Initiated chocolate Ensure high protein per MNT protocol. Ensure High Protein provides 160 kcals, 16 gprotein per serving. Will monitor PO intakes for adequacy. RD will continue to follow this patient. * Bozena Shafer PTA - 03/08/2020 2:30 PM EDT Physical Therapy Facility/Department: [facility] TELEMETRY Daily Treatment Note NAME: Chay Teague : 1945 Date of Service: 03/08/2020 Discharge Recommendations: Subacute/Longterm Facility Assessment Assessment: Pt appears more clear [...] 10:47 AM EDT Speech Language Pathology Facility/Department: [facility] TELEMETRY Dysphagia Treatment Note NAME: Chay [...] Pain:no current complaint S: Pt was alert, personal care aid at bedside. O: Assess advance diet trials. [...] soft. Total Minutes: 24 minutes Yoly Cooney M.A.CCC/PROCESS MAINTENANCE TECHNICIAN Speech-Language Pathologist * John Coe MD - 03/08/2020 9:07 AM EDT Hospitalist Progress Note 03/08/2020 9:07 AM [phone]: Please page ar [phone] for patient care issues. [phone]: Please page [facility] night Hospitalist for any issues. Subjective: Admit Date: 03/06/2020 PCP: Cynthia Uribe MD Interval History: Pt continues to improve. Per acquisition professional, mentation is near "90 %". Pt more talkative and able to converse with everyone in the room. No overnight issues. DIET DYSPHAGIA PUREED; Mildly Thick (Greasy) Patient Vitals for the past 96 hrs [...] Labial Abscess - Unable to visualize; Outpatient Crop Roller referral Diagnosis Date Anxiety Asthma Dementia (HCC) Depression History of blood transfusion Hypertension Hypothyroidism Plan - Monitor Mentation - PT/OT -am labs, replace lytes prn -increase activity -DVT prophylaxis: [x] Lovenox [] Heparin [] SCDs [x] Encourage ambulation [] Already on Anticoagulation Advance Directive: DNR-CCA Discharge plannin-48 hours John Coe MD Division of Hospitalist Medicine Inpatient Medical Services PAGER: [phone] * Meghna Rothman RN - 03/08/2020 8:15 AM EDT Spoke with patients daughter Jennifer regarding updates. * Julia Lantigua PT - 03/07/2020 3:13 PM EDT Physical Therapy Facility/Department: [facility] TELEMETRY Initial Assessment NAME: Chay Teague : 1945 Date of Service: 03/07/2020 Having reviewed the treatment plan and goals for this patient, I certify that the plan of care below is medically necessary and appropriate. Discharge Recommendations: Subacute/Longterm Facility PT Equipment Recommendations Other: TBD at [...] has noted cognitive deficits, h/o dementia and [place] which may impact her ability to learn. 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 [employer] Performance Ads Info: Family Mode of Transportation: Car Occupation: [...] recall of recent events;Decreased short term memory;Decreased longterm memory Safety Judgement: Decreased awareness of need [...] for falls, Left in bed, Nurse notified [facility] Mob[facility] Raw Score : 10 (03/07/20 1504) [facility] Inpatient T-Scale Score : 32.29 (03/07/20 1504) Mobility Inpatient CMS 0-100% Score: 76.75 (03/07/20 1504) Mobility Inpatient CMS G-Code Modifier : CL (03/07/20 1504) [facility] Mobility Inpatient How much difficulty turning [...] climbing 3-5 steps with a railing?: Total [facility] Inpatient Mobility Raw Score : 10 [facility] Inpatient T-Scale Score : 32.29 Mobility [...] appropriate. 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 PROCESS MAINTENANCE TECHNICIAN consulted for further evaluation. Provide diet textures per PROCESS MAINTENANCE TECHNICIAN recommendation. 2. Will assess PO intake adequacy once diet is advance to determine need for additional ONS. 3. Monitor for timely nutrition progression, wts, and labs. RD will follow. Nutrition Assessment: Pt admit with delirium/AMS. Pt is currently NPO due to failing nursing bedside swallow assessment. PROCESS MAINTENANCE TECHNICIAN consult ordered for further evaluation. Pt with [...] fluid accumulation, Extremities(+1 non pitting BLE) 6. Real Estate Lawyer Strength-Not measured Nutrition Risk Level: High Nutrient Needs: Estimated Daily Total Kcal: 6895-1688 kcals(28-30) Estimated Daily Protein (g): 52-62(1-1.2) Estimated [...] Change: , no significant wt loss noted [place] Body Wt: 115 lb (52.2 kg), % [place] Body 174% BMI Classification: BMI 35.0 - 39.9 Obese Class II Nutrition Interventions: Continue NPO Continued Inpatient Monitoring, Swallow Evaluation, Speech Therapy Nutrition Evaluation: Evaluation: Goals set Goals: Pt will receive/tolerate adequate nutrition with safe swallow Monitoring: Nutrition Progression, Diet Tolerance, I&O, Mental Status/Confusion, Weight, Pertinent Labs, Chewing/Swallowing, Monitor Bowel Function Contact Number: [phone] * Yoly Cooney, PROCESS MAINTENANCE TECHNICIAN - 03/07/2020 8:17 AM EDT Speech Language Pathology Facility/Department: [facility] TELEMETRY CLINICAL BEDSIDE SWALLOW EVALUATION Having [...] Cognition currently effecting eating/swallowing. Treatment Plan Requires PROCESS MAINTENANCE TECHNICIAN Intervention: Yes Duration/Frequency of Treatment: 3 visits Recommended Diet and Intervention Diet Solids Recommendation: Dysphagia Pureed (Dysphagia I) Liquid Consistency Recommendation: Mildly Thick (Greasy) Recommended Form of Meds: PO Recommendations: Total feed;Assist feed Therapeutic Interventions: Patient/Family education Compensatory Swallowing Strategies Compensatory Swallowing Strategies: Alternate solids and liquids;Upright as possible for all oral intake;External pacing Treatment/Goals Short-term Goals Timeframe for Short-term Goals: 3 visits Goal 1: Pt will tolerate advance trials with PROCESS MAINTENANCE TECHNICIAN. Goal 2: Pt will tolerate puree diet with mildly thick liquids without respiratory distress/symtoms aspiration. Goal 3: Pt will advance to soft diet as tolerated. General Chart Reviewed: Yes Subjective Subjective: acoustic sensor operator visiting at bedside Behavior/Cognition: Lethargic;Requires cueing Respiratory Status: O2 via nasual cannula O2 Device: Nasal cannula Liters of Oxygen: 2 L Communication Observation: Aphasia(fluctuated.) Follows Directions: Simple Dentition: Dentures top;Dentures bottom Patient Positioning: Upright in bed Baseline Vocal Quality: Normal Volitional Swallow: Delayed Prior Dysphagia History: None indicated in [facility] EPIC Consistencies Administered: Dysphagia Minced and Moist (Dysphagia II);Greasy - cup;Thin - cup;Ice Chips Vision/Hearing Vision [...] Patient Education Response: Needs reinforcement Therapy Time PROCESS MAINTENANCE TECHNICIAN Individual Minutes Time In: 1010 Time Out: 1036 Minutes: 26 RONALD Higgins 03/07/2020 1:38 PM * John Coe MD - 03/07/2020 7:34 AM EDT Hospitalist Progress Note 03/07/2020 7:34 AM [phone]: Please page ar [phone] for patient care issues. [phone]: Please page [facility] Hospitalist for any issues. Subjective: Admit Date: 03/06/2020 PCP: Cynthia Uribe MD Interval History: Snowboarding Instructor in the room and states mentation is [...] texture, turgor normal. No rashes or lesions Crop Roller: Unable to visualize cyst given body habitus and lack of speculum (OB-Crop Roller on discharge recommended). Neurologic: Neurovascularly intact without [...] Labial Abscess - Unable to visualize; Outpatient Crop Roller referral Diagnosis Date Anxiety Asthma Dementia (HCC) Depression History of blood transfusion Hypertension Hypothyroidism Plan - Monitor Mentation - PT/OT - Crop Roller referral as outpatient -am labs, replace lytes prn -increase activity -DVT prophylaxis: [x] Lovenox [] Heparin [] SCDs [x] Encourage ambulation [] Already on Anticoagulation Advance Directive: DNR-CCA Discharge planning: TBD John Coe MD Division of Hospitalist Medicine Inpatient Medical Services PAGER: [phone] * Rnoda Thomas RN - 03/06/2020 6:56 PM EDT [...] to beginDysphagia Pureed Diet with Mildly Thick (Greasy) liquids. Proceed to formal Speech Pathologist Swallow [...] Complaint and Reason for Visit Chief Complaint JAIL LAB WOR K LABWORK JAIL LABWORK Chief Complaint JAIL LAB WOR K LABWORK JAIL LABWORK LABWORK Chief Complaint JAIL LABWORK LABWORK JAIL LABWORK Chief Complaint LABWORK JAIL LABWORK JAIL LABWORK Chief Complaint JAIL LABWORK JAIL LAB WORK Chief Complaint JAIL LABWORK JAIL LAB WORK JAIL LAB WORK Chief Complaint JAIL LAB WOR K JAIL LAB WORK JAIL LAB WORK Chief Complaint JAIL LAB WOR K JAIL LAB WORK JAIL LAB WORK LABWORK Chief Complaint JAIL LAB WOR K JAIL LAB WORK LABWORK LABWORK Chief Complaint Admit Date LABWORK August 30, 2024 5 :00am JAIL LAB WORK September 16 4:00am JAIL LAB WORK November 10 5:00am LABWORK November 17, 2024 5:00am JAIL LAB WORK November 22, 2024 5: 00am JAIL LAB WORK December 09, 2024 4 :00am Additional Source Comments INFORMATION SOURCE (unrecogn ized section and content) DATE CREATED AUTHOR 03/17/2018 [facility] DATE CREATED AUTHOR AUTHOR'S ORGANIZ ATION 03/09/2019 [facility] DATE CREATED AUTHOR AUTHOR'S ORGANIZ ATION 03/15/2019 [facility] DATE CREATED AUTHOR AUTHOR'S ORGANIZ ATION 08/31/2021 [facility] DATE CREATED AUTHOR AUTHOR'S ORGANIZ ATION 09/18/2021 [facility] DATE CREATED AUTHOR AUTHOR'S ORGANIZ ATION 11/21/2021 [facility] DATE CREATED AUTHOR AUTHOR'S ORGANIZ ATION 06/22/2022 [facility] DATE CREATED AUTHOR AUTHOR'S ORGANIZ ATION 06/25/2022 [facility] DATE CREATED AUTHOR AUTHOR'S ORGANIZ ATION 08/28/2022 [facility] DATE CREATED AUTHOR AUTHOR'S ORGANIZ ATION [facility] Reason for Visit (unrecogniz ed [...] or prosecute any alcohol or drug abuse patient.[facility] Care Teams (unrecognized sec tion and content) Team Status: Inactive Member Role Status Dates Saurabh MANJARREZ MD Attending Provider, Referring Pro vider Active Team Status: Inactive Member Role Status Dates Saurabh MANJARREZ MD Attending Provider Active Web Site Administrator Relationship Specialty Start Date End Date Cynthia Uribe MD [address] [place] [id number] PCP - General Family Practice 06/05/22 Team [...] BASED ON THE PRIMARY CLINICAL RECORDS. [facility]. provides no warranty or guarantee of the accuracy or completeness of information in this document.
[2025-08-20 10:54] LABS: Hematocrit 43.3 % (37-47); Hemoglobin 14.4 g/dL (12.0-15.0); Mean Corp Hgb Conc 33.3 g/dL (32-36); Mean Corpuscular Volume 97.1 fL (81-99); Mean Platelet Vol. 12.0 fl (6.2-12.0); Platelet Count 182 K/mm3 (150-450); RBC Distribution Width CV 13.7 % (11.6-14.6); RBC Distribution Width SD 49.6 fl (35.1-43.9); Red Blood Count 4.46 M/mm3 (4.2-5.4); White Blood Count 7.1 K/mm3 (4.4-11.0)
[2025-08-20 10:59] LABS: Color, Urine Yellow (Yellow); Glucose, Dipstick Normal (Normal); Ketone-Dipstick Negative (Negative); Leukocyte Esterase-Dipstick Negative /ul (Negative); Nitrite-Dipstick Negative (Negative); Occult Blood-Urine Negative /ul (Negative); Protein-Dipstick 30 mg/dl (Negative); Specific Gravity, Urine 1.025 (1.002-1.030); Urine Bilirubin Dipstick Negative (Negative)
[2025-08-20 11:18] LABS: Calcium Oxalate Crystals Ur RARE /hpf (<or=2+)
[2025-08-20 11:33] LABS: Anion Gap 13 (5-15); BUN 15 mg/dL (4-19); BUN/Creat Ratio 17.6 RATIO (10-20); Calcium,Total 9.1 mg/dL (7.6-11.0); Carbon Dioxide 28.1 mmol/L (21.0-32.0); Chloride 104 mmol/L (98-108); Glucose 118 mg/dL (70-99); Potassium 4.4 mmol/L (3.3-5.1)
== END ==
LOC: OLS.ACH 22:18
PROVIDERS: Visit Provider Internal Medicine
DX: F29 Unspecified psychosis not due to a substance or known physiological condition (principal); R39.9 Unspecified symptoms and signs involving the genitourinary system; Z87.440 Personal history of urinary (tract) infections
CPT/HCPCS: 80048; 81001; 85027; 87086